=== PATIENT | male | born 1950 | race African-American/Black ===

== ENCOUNTER 2016-08-09 06:50 | Inpatient (IN) | payer MEDICARE, OTHER ==
[~2016-08-09] VITALS: Ht 188 cm; Wt 59.0 kg
[~2016-08-09 06:50] MED LIST: ADVAIR 250/501 PUFFS INH; ALBUTEROL SULF8.5 GM INH; AMLODIPINE BESYL5 MG ORAL; BENZONATATE100 MG ORAL; DALIRESP500 MCG PO; FOLIC ACID1 MG ORAL; GUAIFENESIN600 MG ORAL; IPRATROPIU0.2 MG/1 M HHN; LEVAQUIN500 MG ORAL; OMEPRAZOLE20 M2 ORAL; SPIRIVA18 MCG INH; TYLENOL650 MG RECTAL; XOPENEX0.5 MG HHN
--- NOTE | 2016-08-09 07:00 | Emergency Room Report ---
History of Present Illness General Chief Complaint: Dyspnea/Respdistress Source: EMS Present Illness HPI 65 YO M known COPD on home O2 BIBEMS from SNF with SOB and cough for 2 weeks, progressively worse. Denies fever/chills, chest pain. Has been receiving nebs but not much improvement. Per EMR, admitted 06/17- after intubation in ED for respiratory failure. CT chest at the time was negative except for nodule. Also noted anemia, likely secondary to anemia. Allergies: Coded Allergies: No Known Allergies (Unverified , 06/17/16) Patient History Past Medical History: COPD, other - anemia Past Surgical History: none Pertinent Family History: none Social History: Denies: alcohol use, drug use, smoking Immunizations: UTD Reviewed Nursing Documentation: PMH: Agreed, PSxH: Agreed Nursing Documentation-PMH Hx Hypertension: Yes Hx COPD: Yes - Bronchitis, acute resp failure, pneumonia Hx Cancer: No Hx Gastrointestinal Problems: Yes - GERD, dysphagia Hx Neurological Problems: No Review of Systems All Other Systems: negative except mentioned in HPI Physical Exam Vital Signs Date Time Temp Pulse Resp B/P Pulse Ox O2 Delivery O2 Flow Rate FiO2 08/09/16 06:52 93 Nasal Cannula Sp02 EP Interpretation: reviewed, normal General Appearance: normal inspection, well appearing, alert, GCS 15, non-toxic , mild distress Head: normocephalic, atraumatic Eyes: bilateral eye EOMI, bilateral eye PERRL ENT: normal ENT inspection, hearing grossly normal, normal pharynx, no angioedema, normal voice Neck: normal inspection, full range of motion, supple, no meningismus, no bony tend Respiratory: normal inspection, no rhonchi, no wheezing, respiratory distress, decreased breath sounds Cardiovascular #1: regular rate, rhythm, no edema Gastrointestinal: normal inspection, normal bowel sounds, non tender, soft, no guarding, no hernia Genitourinary: no CVA tenderness Musculoskeletal: normal inspection, back normal, normal range of motion, Chantel' s Sign negative Neurologic: normal inspection, alert, oriented x3, responsive, 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 DDx includes COPD exacerbation, ACS, PNA, CHF PMhx includes COPD, anemia Presents acute SOB warm, c/o intermittent 2 days of progressive SOB, cough Patient immediately placed on laboratory monitor with rhytm strip and STAT EKG was obtained which showed no acute ischemia, sinus tach VS were stable. No hypoxia. Afebrile. No SIRS. Initial management indicated: CBC, CMP, troponin, BNP, CXR, nebs, steroids, empiric Abx, BIPAP Highly suspected: COPD exacerbation, +/- PNA Possible interventions - BIPAP, additional Abx. CC time included frequent re-exams, interpretation of labs, imaging, adjustment of Abx Critical care time of 35 minutes does not include reportable procedures. Medical Decision Making Diagnostic Impression: Primary Impression: COPD exacerbation Additional Impression: Hypercarbia ER Course Labs: No leuls. H&H stable. Hypercarbic to 47. Troponin 0. ECG Sinus tach. CXR: No PNA or PTX or pulm edema. Hyperinflated. A: COPD exacerbation. Improved with Bipap, nebs, IV Mg, IV Azithro Endorsed to Dr Rader at 811am for JORDAN admission EKG Diagnostic Results Rate: tachycardiac Rhythm: NSR ST Segments: no acute changes ASA given to the pt in ED: No Rhythm Strip Diag. Results EP Interpretation: yes Rate: 110 Rhythm: NSR, no PVC's, no ectopy Chest X-Ray Diagnostic Results EP Interpretation: Yes Findings: no consolidation, no effusion, no pneumothorax, no acute cardiopulmonary disease Number of Views: 1 Last Vital Signs Date Time Temp Pulse Resp B/P Pulse Ox O2 Delivery O2 Flow Rate FiO2 08/09/16 06:52 93 Nasal Cannula Status: improved Disposition: ADMITTED INPATIENT Condition: Critical VIANNEY YING M.D. Aug 09, 2016 07:00
[2016-08-09] MEDS ORDERED: Azithromycin 500 MG in NS 275 ML IV ONE (07:15)
[2016-08-09] MEDS ORDERED: Solu-MEDROL 125mg Inj IVP ONE (07:15)
[2016-08-09] MEDS ORDERED: ADVAIR 250-501 EACH INH (07:17)
[2016-08-09] MEDS ORDERED: Azithromycin Inj IV ONE (07:22)
[2016-08-09 07:26] LABS: BASOPHILS % (AUTO) 0.7 % (0.0-2.0); EOSINOPHILS % (AUTO) 1.7 % (0.0-3.0); LYMPHOCYTES % (AUTO) 17.7 % (20.0-45.0); MEAN CORPUSCULAR HGB CONC 30.1 G/DL (32.0-36.0); MEAN CORPUSCULAR VOLUME 90 FL (80-99); MEAN PLATELET VOLUME 6.8 FL (6.5-10.1); MONOCYTES % (AUTO) 6.6 % (1.0-10.0); NEUTROPHILS % (AUTO) 73.3 % (45.0-75.0); PLATELET COUNT 342 K/UL (150-450); RED BLOOD COUNT 4.28 M/UL (4.70-6.10); RED CELL DISTRIBUTION WIDTH 19.4 % (11.6-14.8); WHITE BLOOD COUNT 9.8 K/UL (4.8-10.8)
[2016-08-09] MEDS: Ipratropium 0.02% Inh Soln 2.5ml UD HHN SCH ×3 (07:33→07:59)
[2016-08-09] MEDS: Albuterol ud Inhalation HHN SCH ×3 (07:33→08:00)
[2016-08-09 07:35] VITALS: BP 129/92
[2016-08-09 08:00] LABS: ALANINE AMINOTRANSFERASE 12 U/L (3-41); ALBUMIN/GLOBULIN RATIO 0.9 (1.0-2.7); ANION GAP 4 (5-15); ASPARTATE AMINO TRANSFERASE 13 U/L (5-40); CALCIUM 10.4 mg/dL (8.6-10.2); CHLORIDE 94 mEQ/L (98-107); CREATININE 0.7 mg/dL (0.7-1.2); GLOMERULAR FILTRATION RATE > 60 mL/min (>60); HEMOLYSIS 1; POTASSIUM 4.6 mEQ/L (3.4-4.9); SODIUM 145 mEQ/L (135-145); TOTAL PROTEIN 8.4 g/dL (6.6-8.7); TROPONIN I < 0.30 ng/mL (<=0.30)
[2016-08-09 08:06] LABS: CARBON DIOXIDE 47 mEQ/L (20-30)
[2016-08-09 08:14] LABS: CKMB 1.9 ng/mL (< 6.7)
[2016-08-09 09:43] VITALS: BP 134/76
[2016-08-09 11:37] VITALS: BP 112/70
[2016-08-09] MEDS ORDERED: Morphine Sulfate 2mg/ml Inj IVP PRN (12:00)
[2016-08-09] MEDS ORDERED: Nitroglycerin Subl 0.4mg tab (Bottle Of 25) SL PRN (12:00)
[2016-08-09] MEDS ORDERED: Ketorolac 30mg Inj IV PRN (12:00)
[2016-08-09] MEDS ORDERED: Promethazine/Codeine 5ml UD ORAL PRN (12:00)
[2016-08-09] MEDS ORDERED: LORazepam Inj 2mg/ml 1ml IV PRN (12:00)
[2016-08-09] MEDS: Solu-MEDROL 125mg Inj IV SCH ×3 (12:28→23:53)
[2016-08-09 12:42] LABS: ABG PCO2 106.1 mmHg (35.0-45.0)
[2016-08-09] MEDS ORDERED: BENZONATATE100 MG ORAL (12:42)
[2016-08-09 12:43] LABS: ABG ALLEN TEST POSITIVE; ABG BASE EXCESS 17.5
--- NOTE | 2016-08-09 12:44 | Consultation ---
History of Present Illness General Date patient seen: Aug 09, 2016 Time patient seen: 10:00 Chief Complaint: Dyspnea/Respdistress Referring physician: Prasanth Reason for Consultation: COPD exacerbation Present Illness HPI 65 YO male with known COPD, at home O2 BIBEMS with SOB and cough for 2 weeks , progressively worse. Denies fever/chills, chest pain. Patient had been receiving nebulizers, but not much improvement. Patient with admission in June for acute respiratory failure, requiring intubation CT chest at that time was negative except for R upper lobe noncalcified 7 mm nodule nodule. in ED workup revealed no leucocytosis, afebrile, stable HH CXR with hyperinflation, no evidence of acute cardiopulmonary disease , + hypercapnia, started on BiPAP , steroid loading dose IV and HHN provided after BiPAP, steroids, nebulizing treatment - some improvement Allergies: Coded Allergies: No Known Allergies (Unverified , 06/17/16) Medication History Scheduled Benzonatate* (Benzonatate*), 100 MG ORAL THREE TIMES A DAY, (Reported) Benzonatate* (Benzonatate*), 100 MG ORAL THREE TIMES A DAY, (Reported) Fluticasone/Salmeterol (Advair 250-50 Diskus), 1 PUFF INH BID, (Reported) Folic Acid* (Folic Acid*), 1 MG ORAL DAILY, (Reported) Ipratropium Hagaman 0.5MG/2.5ML (Ipratropium Hagaman 0.5MG/2.5ML), 500 MCG HHN Q6HRT Omeprazole (Omeprazole), 20 MG ORAL DAILY, (Reported) Roflumilast (Daliresp), 500 MCG PO DAILY, (Reported) Scheduled PRN Acetaminophen (Acetaminophen), 650 MG RECTAL Q4H PRN Miscellaneous Medications Guaifenesin (Guaifenesin ER), 200 MG ORAL, (Reported) Discontinued Medications Levalbuterol HCl (Xopenex Concentrate), 0.63 MG HHN Q6HRT Discontinued Reason: Therapy completed Levofloxacin* (Levaquin*), 500 MG ORAL DAILY Discontinued Reason: Medication dose changed Tiotropium Hagaman* (Spiriva*), 1 PUFF INH DAILY, (Reported) Discontinued Reason: Therapy completed Patient History Healthcare decision maker Resuscitation status Advanced Directive on File No Past Medical/Surgical History Past Medical/Surgical History: (1) ENMA (iron deficiency anemia) (2) Acute respiratory failure (3) LFTs abnormal (4) COPD exacerbation (5) Encephalopathy acute Review of Systems Constitutional: Reports: weakness Eye: Reports: no symptoms ENT: Reports: no symptoms Respiratory: Reports: see HPI Cardiovascular: Reports: other - leg edema Gastrointestinal: Reports: no symptoms Genitourinary: Reports: no symptoms Musculoskeletal: Reports: no symptoms Skin: Reports: no symptoms Neurological: Reports: no symptoms Endocrine: Reports: no symptoms Hematologic/Lymphatic: Reports: anemia Physical Exam General Appearance: no apparent distress, alert Lines, tubes and drains: peripheral HEENT: normocephalic, atraumatic, anicteric, mucous membranes moist, other - BiPAP mask on Neck: non-tender, supple Respiratory/Chest: chest wall non-tender, decreased breath sounds - with intermittent use of intercostal muscles Cardiovascular/Chest: normal peripheral pulses, regular rhythm, no JVD, tachycardia - 110 ST Abdomen: normal bowel sounds, non tender, soft Extremities: moderate edema - +2 BLE Skin Exam: warm/dry Neurologic: no motor/sensory deficits, alert, responsive, normal mood/affect Musculoskeletal: normal muscle bulk Last 24 Hour Vital Signs Date Time Temp Pulse Resp B/P Pulse Ox O2 Delivery O2 Flow Rate FiO2 08/09/16 11:38 98.5 109 22 134/76 99 15.0 30 08/09/16 11:37 98.5 109 18 112/70 99 Bi-pap 30 08/09/16 10:30 108 22 99 Facial 15.0 30 08/09/16 09:43 98.5 109 25 134/76 100 Nasal Cannula 4.0 08/09/16 09:05 98 08/09/16 08:30 30 08/09/16 08:11 121 21 99 Bi-pap 15.0 30 08/09/16 08:10 123 21 99 Facial 15.0 30 08/09/16 07:35 98.5 115 16 129/92 93 Nasal Cannula 4.0 08/09/16 07:34 36 08/09/16 07:34 113 16 Nasal Cannula 4.0 36 08/09/16 07:34 113 16 93 Nasal Cannula 4.0 36 08/09/16 06:55 72 24 Nasal Cannula 4.0 08/09/16 06:52 98.2 72 24 130/88 93 Nasal Cannula 4.0 Laboratory Tests Test 2/3/17 07:10 White Blood Count 9.8 K/UL (4.8-10.8) Red Blood Count 4.28 M/UL (4.70-6.10) L Hemoglobin 11.6 G/DL (14.2-18.0) L Hematocrit 38.4 % (42.0-52.0) L Mean Corpuscular Volume 90 FL (80-99) Mean Corpuscular Hemoglobin 27.0 PG (27.0-31.0) Mean Corpuscular Hemoglobin Concent 30.1 G/DL (32.0-36.0) L Red Cell Distribution Width 19.4 % (11.6-14.8) H Platelet Count 342 K/UL (150-450) Mean Platelet Volume 6.8 FL (6.5-10.1) Neutrophils (%) (Auto) 73.3 % (45.0-75.0) Lymphocytes (%) (Auto) 17.7 % (20.0-45.0) L Monocytes (%) (Auto) 6.6 % (1.0-10.0) Eosinophils (%) (Auto) 1.7 % (0.0-3.0) Basophils (%) (Auto) 0.7 % (0.0-2.0) Sodium Level 145 mEQ/L (135-145) Potassium Level 4.6 mEQ/L (3.4-4.9) Chloride Level 94 mEQ/L (98-107) L Carbon Dioxide Level 47 mEQ/L (20-30) *H Anion Gap 4 (5-15) L Blood Urea Nitrogen 9 mg/dL (7-23) Creatinine 0.7 mg/dL (0.7-1.2) Estimat Glomerular Filtration Rate > 60 mL/min (>60) Glucose Level 117 mg/dL (74-106) H Calcium Level 10.4 mg/dL (8.6-10.2) H Total Bilirubin 0.3 mg/dL (0.0-1.2) Aspartate Amino Transf (AST/SGOT) 13 U/L (5-40) Alanine Aminotransferase (ALT/SGPT) 12 U/L (3-41) Alkaline Phosphatase 97 U/L (40-129) Total Creatine Kinase 31 U/L (38-174) L Creatine Kinase MB 1.9 ng/mL (< 6.7) Creatine Kinase MB Relative Index 6.1 Troponin I < 0.30 ng/mL (<=0.30) Pro-B-Type Natriuretic Peptide 64 pg/mL (0-125) Total Protein 8.4 g/dL (6.6-8.7) Albumin 4.0 g/dL (3.5-5.2) Globulin 4.4 g/dL Albumin/Globulin Ratio 0.9 (1.0-2.7) L Height (Feet): 6 Height (Inches): 2.00 Weight (Pounds): 130 Medications Current Medications Medications (Trade) Dose Ordered Sig/Shraddha Route PRN Reason Start Time Stop Time Status Last Admin Dose Admin Albuterol/ Ipratropium (DuoNeb 0.5-3(2.5)mg/3ml) 3 ml Q4H PRN HHN dyspnea 08/09/16 12:00 08/14/16 11:59 Dextrose STAT PRN IV Hypoglycemia 08/09/16 12:00 09/08/16 11:59 Heparin Sodium (Porcine) (Heparin 5000 units/ml) 5,000 units EVERY 12 HOURS SUBQ 08/09/16 21:00 09/08/16 20:59 Insulin Aspart (NovoLOG) BEFORE MEALS AND HS SUBQ 08/09/16 16:30 09/08/16 16:29 Ketorolac Tromethamine (Toradol 30mg) 30 mg Q8H PRN IV moderate pain 4-6 08/09/16 12:00 08/14/16 11:59 Lorazepam (Ativan 2mg/ml 1ml) 0.5 mg Q4H PRN IV For Anxiety 08/09/16 12:00 08/16/16 11:59 Methylprednisolone Sodium Succinate (Solu-MEDROL) 60 mg EVERY 6 HOURS IV 08/09/16 12:00 09/08/16 11:59 Morphine Sulfate (Morphine Sulfate) 2 mg Q4H PRN IVP severe pain 7-10 08/09/16 12:00 08/16/16 11:59 Nitroglycerin (Ntg) 0.4 mg Q5M X 3 DOSES PRN SL Prn Chest Pain 08/09/16 12:00 09/08/16 11:59 Ondansetron HCl (Zofran) 4 mg Q6H PRN IVP Nausea & Vomiting 2/3/17 12:00 09/08/16 11:59 Piperacillin Sod/ Tazobactam Sod/ Dextrose (Zosyn/D5W) 110 ml @ 27.5 mls/hr EVERY 8 HOURS IVPB 08/09/16 14:00 08/14/16 13:59 Promethazine HCl/ Codeine (Phenergan with Codeine) 5 ml Q6H PRN ORAL cough 08/09/16 12:00 09/08/16 11:59 Temazepam (Restoril) 15 mg HSPRN PRN ORAL Insomnia 08/09/16 21:00 08/16/16 20:59 Theophylline (Dustin-Dur) 100 mg EVERY 12 HOURS ORAL 08/09/16 21:00 09/08/16 20:59 Vitamin A/Vitamin D (A & D Oint) 1 applic EVERY 12 HOURS TOPIC 08/09/16 21:00 09/08/16 20:59 UNV Assessment/Plan Assessment/Plan ASSESSMENT acute hypercapnic hypoxemic respiratory failure requiring BiPAP acute COPD exacerbation COPD R pulmonary nodule hx of respiratory failure with intubation ( June 2016)\ Smoker hx of DVT leg edema anemia PLAN OF CARE JORDAN on BiPAP ABG Wean from BiPAP as tolerated , titrate O2 to keep sat above 92% pulmonary toilet IV steroids and taper as permitted sputum cx empiric antibiotics start Theophylline antitussive prn last CT chest in June with R noncalcified pulmonary nodule [address] 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
--- NOTE | 2016-08-09 12:49 | Diagnostic Imaging Report ---
Indication: SOB Technique: One view of the chest Comparison: 06/25/2016 Findings: The lungs are hyperinflated. Lungs pleural spaces are clear. The heart size is normal. Calcified granuloma is seen in the left upper lobe Impression: No acute process Hyperinflation, consistent with COPD Evidence of old granulomatous disease This agrees with the preliminary interpretation provided by the emergency room physician.
[2016-08-09] MEDS: NovoLOG Insulin Flexpen SUBQ SCH ×4 (13:45→20:09)
[2016-08-09] MEDS ORDERED: Piperacillin/Tazobactam 2.25 GM in D5W 55 ML IV SCH (14:00)
[2016-08-09] MEDS: Zoysn 3.37gm in D5W 110ml IVPB SCH ×2 (14:34→21:47)
[2016-08-09 16:00] VITALS: BP 116/92
--- NOTE | 2016-08-09 16:43 | Wound Care Consultation ---
Wound Assessment Wound Assessment : Wound Present on Admission: Yes New Wound: No Status Change of Wound: No Wound Location Body Site Modif: left, right, lower Wound Location Body Site: leg Wound Type: other - dryness Nisha Test: Does not Nisha Edema Degree: 2+ indent readily Wound Drainage Amount: None Wound Drainage Odor: None/Absent Tissue Surrounding Wound: Edematous Wound General Appearance: Asymptomatic Wound Comment #1 Right and left lower legs with dry and flaky skin Recommendation -Keep clean and moist by applying A&D ointment -Turn and reposition -Offload both heels -Elevate both legs -Optimize nutrition -Assess and f/u accordingly for any changes on the skin CARRILLO HARRISON RN Aug 09, 2016 16:43
--- NOTE | 2016-08-09 19:21 | History & Physical ---
History and Physical History & Physicial Dictated for Int Med-Dr Rader no. [id number]. TADEO VERDIN Aug 09, 2016 19:21
[2016-08-09 20:00] VITALS: BP 123/85
[2016-08-09] MEDS: Vitamin A&D Oint 2oz Tube TOPIC SCH (20:03)
[2016-08-09] MEDS: Theophylline ER 100mg ORAL SCH (20:03)
[2016-08-09] MEDS: Heparin 5000 units/ml inj SUBQ SCH (20:05)
[2016-08-09] MEDS ORDERED: Vitamin A&D Oint 2oz Tube TOPIC SCH (21:00)
--- NOTE | 2016-08-09 22:37 | History and Physical Report ---
DATE OF ADMISSION: 08/09/2016 CHIEF COMPLAINT: The patient is a 65-year-old male with history of chronic obstructive pulmonary disease, who presents with complaint of cough and shortness of breath. HISTORY OF PRESENT ILLNESS: Two weeks prior to admission, the patient began to experience cough and shortness of breath. The patient is resident of [facility]. The patient was transported to [place] emergency room via EMS. The patient was found to be acutely short of breath. The patient was placed on BiPAP. The patient received nebulizer treatments. The patient is admitted for chronic exacerbation of chronic obstructive pulmonary disease. PAST MEDICAL HISTORY: Significant for 1. Chronic obstructive pulmonary disease. 2. History of respiratory failure with intubation at [facility] in June 2016. PAST SURGICAL HISTORY: The patient denies. MEDICATIONS: Current Medications 1. Tessalon Perles 100 mg two times daily. 2. Advair 250/50 one puff p.o. twice daily. 3. Folic acid 1 mg p.o. daily. 4. Guaifenesin 600 mg one tablet p.o. twice daily. 5. Atrovent nebulized q.4 h. p.r.n. 6. Omeprazole 20 mg one tablet p.o. daily. 7. Daliresp 500 mcg p.o. daily. ALLERGIES: No known drug allergies. SOCIAL HISTORY: The patient is a resident of [facility]. The patient is single. The patient admits to previous tobacco use. The patient denies alcohol use. REVIEW OF SYSTEMS: Unable to assess secondary to patient being on BiPAP. PHYSICAL EXAMINATION: GENERAL: The patient is thin-appearing male, in moderate respiratory distress using accessory muscles. VITAL SIGNS: Temperature 98.6 degrees, respirations 18, pulse 111, and blood pressure 116/92. The patient is currently on BiPAP and saturating 99%. HEENT: Eyes, pupils are equal and responsive to light and accommodation. Extraocular movements are intact. NECK: Supple without lymphadenopathy. CHEST: Lungs are diffuse wheezing bilaterally with rhonchi heard in bilateral bases. There are crackles in bilateral bases. CARDIOVASCULAR: Tachycardic. S1 and S2 normal without murmurs, rubs, or gallops. ABDOMEN: Soft, nontender, and nondistended. Positive bowel sounds. No evidence of hepatosplenomegaly. Currently, no rebound and no guarding. EXTREMITIES: No clubbing, cyanosis, or edema. RECTAL: Refused. GENITAL: Refused. NEUROLOGIC: Cranial nerves II through XII are grossly intact without focal deficits. Motor strength is 5/5 bilaterally. Deep tendon reflexes are 2+. LABORATORY AND DIAGNOSTIC DATA: WBC 9.8, hemoglobin 11.6, hematocrit 30.4, and platelets 242,000. Sodium 140, potassium 4.6, chloride 94, CO2 is 47, BUN 9, creatinine 0.7, and glucose 117. Arterial blood gases, pH 7.275, pCO2 106.1, pO2 142.5, bicarbonate 48.2, oxygen saturation 98.5, base excess +17.5. A chest x-ray revealed hyperinflation consistent with chronic obstructive pulmonary disease. ASSESSMENT: This is a 65-year-old male 1. Chronic obstructive pulmonary disease. 2. Acute exacerbation. 3. Respiratory failure. TREATMENT: Chronic obstructive pulmonary disease exacerbation/respiratory failure. A Pulmonary consultation with Dr. Demetrius Andrade. The patient is currently on BiPAP. The patient has been started empirically on theophylline 100 mg twice daily. The patient has also been started on Zosyn 3.375 grams IV q.8 h. The patient has also been started on Duo-Nebs every four hours p.r.n. shortness of breath. The patient is also currently receiving Solu-Medrol 60 mg mg intravenously q.6 h. serial chest x-rays will be performed. Rule out pneumonia. Goyo Tsang M.D. DR: MARCOS JOB#: [id number] CC:
[2016-08-10] VITALS: BP 144/88
[2016-08-10] MEDS: Solu-MEDROL 125mg Inj IV SCH ×3 (00:46→17:50)
[2016-08-10 04:30] VITALS: BP 145/87
[2016-08-10 04:59] LABS: MEAN CORPUSCULAR HEMOGLOBIN 26.9 PG (27.0-31.0); MEAN CORPUSCULAR HGB CONC 30.2 G/DL (32.0-36.0); MEAN CORPUSCULAR VOLUME 89 FL (80-99); MEAN PLATELET VOLUME 6.7 FL (6.5-10.1); PLATELET COUNT 281 K/UL (150-450); RED BLOOD COUNT 3.47 M/UL (4.70-6.10); RED CELL DISTRIBUTION WIDTH 18.8 % (11.6-14.8); WHITE BLOOD COUNT 6.3 K/UL (4.8-10.8)
[2016-08-10 05:17] LABS: ANION GAP 6 (5-15); CALCIUM 9.5 mg/dL (8.6-10.2); CHLORIDE 93 mEQ/L (98-107); CREATININE 0.7 mg/dL (0.7-1.2); GLOMERULAR FILTRATION RATE > 60 mL/min (>60); HEMOLYSIS 0; POTASSIUM 5.2 mEQ/L (3.4-4.9); SODIUM 143 mEQ/L (135-145)
[2016-08-10 05:25] LABS: CARBON DIOXIDE 44 mEQ/L (20-30)
[2016-08-10] MEDS: Zoysn 3.37gm in D5W 110ml IVPB SCH ×3 (05:46→21:47)
[2016-08-10] MEDS: NovoLOG Insulin Flexpen SUBQ SCH ×4 (05:47→20:46)
[2016-08-10 08:00] VITALS: BP 145/92
[2016-08-10] MEDS: Theophylline ER 100mg ORAL SCH ×2 (08:40→20:45)
[2016-08-10] MEDS: Heparin 5000 units/ml inj SUBQ SCH ×2 (08:42→20:47)
[2016-08-10] MEDS: Vitamin A&D Oint 2oz Tube TOPIC SCH ×2 (08:48→20:48)
[2016-08-10 09:46] LABS: ABG ALLEN TEST POSITIVE; ABG BASE EXCESS 20.8; ABG PCO2 102.1 mmHg (35.0-45.0)
[2016-08-10] MEDS ORDERED: Sodium Polystyrene Sulfonate 15gm Powder ORAL ONE (10:00)
[2016-08-10 12:00] VITALS: BP 132/88
--- NOTE | 2016-08-10 14:00 | Pulmonology Progress Note ---
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 Nicotine patch last ECHO with preserved EF 55-60% and RVSP 17, no LVH, pro BNP WNL elevate LE monitor HH, trending down, anemia workup DVT, GI prophylaxis Venous Duplex BLE ( hx of DVT in the past) with chronic DVT RLE case discussed and evaluated by supervising physician Subjective Allergies: Coded Allergies: No Known Allergies (Unverified , 06/17/16) Subjective afebrile, no leukocytosis still on BiPAP ABG on 3 L O2 via NC with severe hypercapnia, pH better HH trending down Objective Last 24 Hour Vital Signs Date Time Temp Pulse Resp B/P Pulse Ox O2 Delivery O2 Flow Rate FiO2 08/10/16 12:40 106 08/10/16 12:00 97.9 116 18 132/88 93 Bi-pap 30 08/10/16 11:53 30 08/10/16 11:12 98 21 96 Facial 15.0 30 08/10/16 11:05 101 22 96 Facial 15.0 25 08/10/16 08:00 97.0 111 16 145/92 98 Bi-pap 30 08/10/16 08:00 109 08/10/16 07:50 30 08/10/16 06:55 98 22 97 Facial 15.0 30 08/10/16 05:17 95 19 96 Facial 15.0 30 08/10/16 04:30 97.4 102 16 145/87 98 Bi-pap 30 08/10/16 04:00 30 08/10/16 03:39 104 08/10/16 03:20 97 20 95 Facial 15.0 30 08/10/16 01:19 90 18 95 Facial 15.0 30 08/10/16 00:56 89 20 95 Bi-pap 15.0 30 08/10/16 00:47 105 18 96 Bi-pap 30 08/10/16 00:47 30 08/10/16 00:00 97.7 103 14 144/88 97 Bi-pap 30 08/10/16 00:00 30 08/09/16 23:35 104 08/09/16 23:25 103 18 96 Facial 15.0 30 08/09/16 20:00 96.4 110 18 123/85 100 Bi-pap 30 08/09/16 20:00 30 08/09/16 20:00 103 08/09/16 16:50 103 21 99 Facial 15.0 30 08/09/16 16:00 108 08/09/16 16:00 98.6 111 18 116/92 99 Bi-pap 30 08/09/16 16:00 30 08/09/16 14:50 108 22 99 Facial 15.0 30 Intake and Output 08/09/16 08/10/16 19:00 07:00 Intake Total 110.0 ml 377.5 ml Output Total 150 ml 535 ml Balance -40.0 ml -157.5 ml Intake Oral 0 ml 240 ml IV Total 110.0 ml 137.5 ml Output Urine Total 150 ml 535 ml # Voids 2 6 # Bowel Movements 2 Objective General Appearance: no apparent distress, alert Lines, tubes and drains: peripheral HEENT: normocephalic, atraumatic, anicteric, mucous membranes moist, BiPAP 15 /5 with FiO2 30%, mask on Neck: non-tender, supple Respiratory/Chest: chest wall non-tender, decreased breath sounds with intermittent use of intercostal muscles Cardiovascular/Chest: normal peripheral pulses, regular rhythm, no JVD, tachycardia - 110 ST Abdomen: normal bowel sounds, non tender, soft Extremities: moderate edema - +2 BLE Skin Exam: warm/dry Neurologic: no motor/sensory deficits, alert, responsive, normal mood/affect Musculoskeletal: normal muscle bulk Microbiology Date/Time Source Procedure Growth Status 08/09/16 07:25 Blood Not Otherwise Specified Blood Culture - Preliminary NO GROWTH AFTER 24 HOURS Resulted 08/09/16 07:00 Blood Not Otherwise Specified Blood Culture - Preliminary NO GROWTH AFTER 24 HOURS Resulted 08/09/16 18:30 Nasal Nares Influenza Types A,B Antigen (JACINTA) - Final Complete 08/09/16 08:31 Nasal Nares MRSA Culture - Final NO METHICILLIN RESISTANT STAPH AUREUS... Complete Laboratory Tests 08/10/16 04:00: White Blood Count 6.3, Red Blood Count 3.47L, Hemoglobin 9.3L, Hematocrit 30.9L , Mean Corpuscular Volume 89, Mean Corpuscular Hemoglobin 26.9L, Mean Corpuscular Hemoglobin Concent 30.2L, Red Cell Distribution Width 18.8H, Platelet Count 281, Mean Platelet Volume 6.7, Neutrophils (%) (Auto) , Lymphocytes (%) (Auto) , Monocytes (%) (Auto) , Eosinophils (%) (Auto) , Basophils (%) (Auto) , Sodium Level 143, Potassium Level 5.2H, Chloride Level 93L, Carbon Dioxide Level 44*H, Anion Gap 6, Blood Urea Nitrogen 9, Creatinine 0.7, Estimat Glomerular Filtration Rate > 60, Glucose Level 131H, Calcium Level 9.5 08/10/16 08:36: Arterial Blood pH 7.317L, Arterial Blood Partial Pressure CO2 102.1*H, Arterial Blood Partial Pressure O2 123.2H, Arterial Blood HCO3 51.1H, Arterial Blood Oxygen Saturation 97.9, Arterial Blood Base Excess 20.8, Joseluis Test Positive Current Medications Medications (Trade) Dose Ordered Sig/Shraddha Route PRN Reason Start Time Stop Time Status Last Admin Dose Admin Albuterol/ Ipratropium (DuoNeb 0.5-3(2.5)mg/3ml) 3 ml Q4H PRN HHN dyspnea 08/09/16 12:00 08/14/16 11:59 Dextrose STAT PRN IV Hypoglycemia 08/09/16 12:00 09/08/16 11:59 Heparin Sodium (Porcine) (Heparin 5000 units/ml) 5,000 units EVERY 12 HOURS SUBQ 08/09/16 21:00 09/08/16 20:59 08/10/16 08:42 Insulin Aspart (NovoLOG) BEFORE MEALS AND HS SUBQ 08/09/16 13:45 09/08/16 13:44 08/10/16 11:26 Ketorolac Tromethamine (Toradol 30mg) 30 mg Q8H PRN IV moderate pain 4-6 08/09/16 12:00 08/14/16 11:59 Lorazepam (Ativan 2mg/ml 1ml) 0.5 mg Q4H PRN IV For Anxiety 08/09/16 12:00 08/16/16 11:59 08/10/16 03:23 Methylprednisolone Sodium Succinate (Solu-MEDROL) 60 mg EVERY 6 HOURS IV 08/09/16 12:00 09/08/16 11:59 08/10/16 11:27 Morphine Sulfate (Morphine Sulfate) 2 mg Q4H PRN IVP severe pain 7-10 08/09/16 12:00 08/16/16 11:59 Nicotine (Nicoderm) 1 patch Q24H TDERMAL 08/09/16 14:00 09/08/16 13:59 08/10/16 13:48 Nitroglycerin (Ntg) 0.4 mg Q5M X 3 DOSES PRN SL Prn Chest Pain 08/09/16 12:00 09/08/16 11:59 Ondansetron HCl (Zofran) 4 mg Q6H PRN IVP Nausea & Vomiting 08/09/16 12:00 09/08/16 11:59 Piperacillin Sod/ Tazobactam Sod/ Dextrose (Zosyn/D5W) 110 ml @ 27.5 mls/hr EVERY 8 HOURS IVPB 08/09/16 14:00 08/14/16 13:59 08/10/16 13:48 Promethazine HCl/ Codeine (Phenergan with Codeine) 5 ml Q6H PRN ORAL cough 08/09/16 12:00 09/08/16 11:59 Temazepam (Restoril) 15 mg HSPRN PRN ORAL Insomnia 08/09/16 21:00 08/16/16 20:59 Theophylline (Dustin-Dur) 100 mg EVERY 12 HOURS ORAL 08/09/16 21:00 09/08/16 20:59 08/10/16 08:40 Vitamin A/Vitamin D (A & D Oint) 1 applic EVERY 12 HOURS TOPIC 08/09/16 21:00 09/08/16 20:59 08/10/16 08:48 [facility]Katia NP Aug 10, 2016 14:00
[2016-08-10] MEDS ORDERED: Tubing IV Secondary IV ONE (14:37)
[2016-08-10] MEDS ORDERED: NS 275ml ONE (14:37)
[2016-08-10 16:00] VITALS: BP 138/92
--- NOTE | 2016-08-10 17:25 | Internal Med Progress Note ---
Subjective Date of Service: Aug 10, 2016 Physician Name Tadeo Verdin Attending Physician Steve Rader MD Current Medications Medications (Trade) Dose Ordered Sig/Shraddha Route PRN Reason Start Time Stop Time Status Last Admin Dose Admin Albuterol/ Ipratropium (DuoNeb 0.5-3(2.5)mg/3ml) 3 ml Q4H PRN HHN dyspnea 08/09/16 12:00 08/14/16 11:59 Dextrose STAT PRN IV Hypoglycemia 08/09/16 12:00 09/08/16 11:59 Heparin Sodium (Porcine) (Heparin 5000 units/ml) 5,000 units EVERY 12 HOURS SUBQ 08/09/16 21:00 09/08/16 20:59 08/10/16 08:42 Insulin Aspart (NovoLOG) BEFORE MEALS AND HS SUBQ 08/09/16 13:45 09/08/16 13:44 08/10/16 11:26 Ketorolac Tromethamine (Toradol 30mg) 30 mg Q8H PRN IV moderate pain 4-6 08/09/16 12:00 08/14/16 11:59 Lorazepam (Ativan 2mg/ml 1ml) 0.5 mg Q4H PRN IV For Anxiety 08/09/16 12:00 08/16/16 11:59 08/10/16 03:23 Methylprednisolone Sodium Succinate (Solu-MEDROL) 60 mg EVERY 6 HOURS IV 08/09/16 12:00 09/08/16 11:59 08/10/16 11:27 Morphine Sulfate (Morphine Sulfate) 2 mg Q4H PRN IVP severe pain 7-10 08/09/16 12:00 08/16/16 11:59 Nicotine (Nicoderm) 1 patch Q24H TDERMAL 08/09/16 14:00 09/08/16 13:59 08/10/16 13:48 Nitroglycerin (Ntg) 0.4 mg Q5M X 3 DOSES PRN SL Prn Chest Pain 08/09/16 12:00 09/08/16 11:59 Ondansetron HCl (Zofran) 4 mg Q6H PRN IVP Nausea & Vomiting 08/09/16 12:00 09/08/16 11:59 Piperacillin Sod/ Tazobactam Sod/ Dextrose (Zosyn/D5W) 110 ml @ 27.5 mls/hr EVERY 8 HOURS IVPB 08/09/16 14:00 08/14/16 13:59 08/10/16 13:48 Promethazine HCl/ Codeine (Phenergan with Codeine) 5 ml Q6H PRN ORAL cough 08/09/16 12:00 09/08/16 11:59 Temazepam (Restoril) 15 mg HSPRN PRN ORAL Insomnia 08/09/16 21:00 08/16/16 20:59 Theophylline (Dustin-Dur) 100 mg EVERY 12 HOURS ORAL 08/09/16 21:00 09/08/16 20:59 08/10/16 08:40 Vitamin A/Vitamin D (A & D Oint) 1 applic EVERY 12 HOURS TOPIC 08/09/16 21:00 09/08/16 20:59 08/10/16 08:48 Allergies: Coded Allergies: No Known Allergies (Unverified , 06/17/16) ROS Limited/Unobtainable: Yes Constitutional: Reports: no symptoms HEENT: Reports: no symptoms Cardiovascular: Reports: no symptoms Respiratory: Reports: shortness of breath Gastrointestinal/Abdominal: Reports: no symptoms Genitourinary: Reports: no symptoms Neurologic/Psychiatric: Reports: no symptoms Subjective 65 YO M admitted with shortness of breath and respiratory failure. JORDAN. Continues on BIPAP. Cover for Int [facility]-Dr Rader. 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, no motor/sensory deficits Skin: normal pigmentation, warm/dry Laboratory Tests Test 08/10/16 04:00 08/10/16 08:36 White Blood Count 6.3 K/UL (4.8-10.8) Red Blood Count 3.47 M/UL (4.70-6.10) L Hemoglobin 9.3 G/DL (14.2-18.0) L Hematocrit 30.9 % (42.0-52.0) L Mean Corpuscular Volume 89 FL (80-99) Mean Corpuscular Hemoglobin 26.9 PG (27.0-31.0) L Mean Corpuscular Hemoglobin Concent 30.2 G/DL (32.0-36.0) L Red Cell Distribution Width 18.8 % (11.6-14.8) H Platelet Count 281 K/UL (150-450) Mean Platelet Volume 6.7 FL (6.5-10.1) Neutrophils (%) (Auto) % (45.0-75.0) Lymphocytes (%) (Auto) % (20.0-45.0) Monocytes (%) (Auto) % (1.0-10.0) Eosinophils (%) (Auto) % (0.0-3.0) Basophils (%) (Auto) % (0.0-2.0) Sodium Level 143 mEQ/L (135-145) Potassium Level 5.2 mEQ/L (3.4-4.9) H Chloride Level 93 mEQ/L (98-107) L Carbon Dioxide Level 44 mEQ/L (20-30) *H Anion Gap 6 (5-15) Blood Urea Nitrogen 9 mg/dL (7-23) Creatinine 0.7 mg/dL (0.7-1.2) Estimat Glomerular Filtration Rate > 60 mL/min (>60) Glucose Level 131 mg/dL (74-106) H Calcium Level 9.5 mg/dL (8.6-10.2) Arterial Blood pH 7.317 (7.350-7.450) Arterial Blood Partial Pressure CO2 102.1 mmHg (35.0-45.0) *H Arterial Blood Partial Pressure O2 123.2 mmHg (75.0-100.0) H Arterial Blood HCO3 51.1 mmol/L (22.0-26.0) H Arterial Blood Oxygen Saturation 97.9 % (92.0-98.0) Arterial Blood Base Excess 20.8 Joseluis Test Positive Microbiology Date/Time Source Procedure Growth Status 08/09/16 07:25 Blood Not Otherwise Specified Blood Culture - Preliminary NO GROWTH AFTER 24 HOURS Resulted 08/09/16 07:00 Blood Not Otherwise Specified Blood Culture - Preliminary NO GROWTH AFTER 24 HOURS Resulted 08/09/16 18:30 Nasal Nares Influenza Types A,B Antigen (JACINTA) - Final Complete 08/09/16 08:31 Nasal Nares MRSA Culture - Final NO METHICILLIN RESISTANT STAPH AUREUS... Complete Intake and Output 08/09/16 08/10/16 19:00 07:00 Intake Total 110.0 ml 377.5 ml Output Total 150 ml 535 ml Balance -40.0 ml -157.5 ml Intake Oral 0 ml 240 ml IV Total 110.0 ml 137.5 ml Output Urine Total 150 ml 535 ml # Voids 2 6 # Bowel Movements 2 Assessment/Plan Problem List: (1) COPD exacerbation Assessment & Plan: See pulmonary note. Await CT chest. Cont BIPAP and zosyn (2) Acute respiratory failure Assessment & Plan: Cont BIPAP per pulmonary Status: not improved TADEO VERDIN Aug 10, 2016 17:25
[2016-08-10 20:00] VITALS: BP 137/92
[2016-08-11] VITALS: BP 122/72
[2016-08-11] MEDS: Solu-MEDROL 125mg Inj IV SCH ×3 (00:23→21:11)
[2016-08-11 04:00] VITALS: BP 134/97
[2016-08-11] MEDS: NovoLOG Insulin Flexpen SUBQ SCH ×4 (06:14→21:00)
[2016-08-11] MEDS: Zoysn 3.37gm in D5W 110ml IVPB SCH ×3 (06:14→21:15)
[2016-08-11 06:20] LABS: MEAN CORPUSCULAR HEMOGLOBIN 26.5 PG (27.0-31.0); MEAN CORPUSCULAR HGB CONC 29.8 G/DL (32.0-36.0); MEAN CORPUSCULAR VOLUME 89 FL (80-99); PLATELET COUNT 309 K/UL (150-450); RED BLOOD COUNT 3.73 M/UL (4.70-6.10); RED CELL DISTRIBUTION WIDTH 18.9 % (11.6-14.8); WHITE BLOOD COUNT 11.9 K/UL (4.8-10.8)
[2016-08-11 06:38] LABS: ANION GAP 4 (5-15); CALCIUM 9.7 mg/dL (8.6-10.2); CHLORIDE 92 mEQ/L (98-107); CREATININE 0.6 mg/dL (0.7-1.2); GLOMERULAR FILTRATION RATE > 60 mL/min (>60); SODIUM 143 mEQ/L (135-145)
[2016-08-11 06:49] LABS: FERRITIN 54 ng/mL (10-230)
[2016-08-11 07:09] LABS: CARBON DIOXIDE 47 mEQ/L (20-30)
[2016-08-11 07:52] LABS: HEMOLYSIS 27; IRON 29 ug/dL (59-158); TOTAL IRON BINDING CAPACITY 283 ug/dL (250-400)
[2016-08-11 08:00] VITALS: BP 148/87
[2016-08-11 08:50] LABS: ANISOCYTOSIS 1+; BAND NEUTROPHILS % (MANUAL) 0 % (0-8); BASOPHILS % (MANUAL) 0 % (0-2); EOSINOPHILS % (MANUAL) 0 % (0-3); HYPOCHROMASIA 1+; LYMPHOCYTES % (MANUAL) 7 % (20-45); NEUTROPHILS % (MANUAL) 87 % (45-75); PLATELET ESTIMATE ADEQUATE; PLATELET MORPHOLOGY NORMAL; TOTAL CELLS COUNTED 100
[2016-08-11] MEDS: Theophylline ER 100mg ORAL SCH ×2 (08:58→21:18)
[2016-08-11] MEDS: Heparin 5000 units/ml inj SUBQ SCH ×2 (09:01→21:16)
[2016-08-11] MEDS: Vitamin A&D Oint 2oz Tube TOPIC SCH ×2 (09:05→20:44)
--- NOTE | 2016-08-11 11:33 | Pulmonology Progress Note ---
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 Nicotine patch last ECHO with preserved EF 55-60% and RVSP 17, no LVH, pro BNP WNL elevate LE monitor HH, trending down, anemia workup revealed low iron v Venofer x 1 today DVT, GI prophylaxis Venous Duplex BLE ( hx of DVT in the past) with chronic DVT RLE case discussed and evaluated by supervising physician Subjective Allergies: Coded Allergies: No Known Allergies (Unverified , 06/17/16) Subjective afebrile, mild leukocytosis today still on BiPAP at night and with food intake on O2 via NC with mild respiratory distress afterwards ABG pending for thsi am Objective Last 24 Hour Vital Signs Date Time Temp Pulse Resp B/P Pulse Ox O2 Delivery O2 Flow Rate FiO2 08/11/16 08:57 101 23 95 Facial 4.0 36 08/11/16 08:00 97.7 108 148/87 100 Nasal Cannula 5.0 08/11/16 07:30 110 21 98 Facial 30 08/11/16 05:03 112 21 98 Facial 15.0 30 08/11/16 04:00 96.4 112 20 134/97 95 Nasal Cannula 2.0 08/11/16 04:00 109 08/11/16 04:00 30 08/11/16 02:45 118 21 100 Facial 15.0 30 08/11/16 00:36 4.0 08/11/16 00:00 97.0 93 20 122/72 100 Nasal Cannula 2.0 08/10/16 20:00 30 08/10/16 20:00 97.1 104 24 137/92 94 Bi-pap 30 08/10/16 20:00 111 08/10/16 19:15 110 17 100 Facial 15.0 30 08/10/16 16:35 95 20 96 Facial 15.0 30 08/10/16 16:00 30 08/10/16 16:00 90 08/10/16 16:00 97.3 83 21 138/92 95 Bi-pap 30 08/10/16 14:40 102 23 97 Facial 15.0 30 08/10/16 12:40 106 08/10/16 12:00 97.9 116 18 132/88 93 Bi-pap 30 08/10/16 11:53 30 Intake and Output 08/10/16 08/11/16 19:00 07:00 Intake Total 842.5 ml 110.0 ml Output Total 620 ml 550 ml Balance 222.5 ml -440.0 ml Intake Oral 650 ml IV Total 192.5 ml 110.0 ml Output Urine Total 620 ml 550 ml # Voids 5 2 Objective General Appearance: no apparent distress, alert Lines, tubes and drains: peripheral HEENT: normocephalic, atraumatic, anicteric, mucous membranes moist, BiPAP 15 /5 with FiO2 30%, mask on Neck: non-tender, supple Respiratory/Chest: chest wall non-tender, decreased breath sounds with intermittent use of intercostal muscles Cardiovascular/Chest: normal peripheral pulses, regular rhythm, no JVD, tachycardia - 105 ST Abdomen: normal bowel sounds, non tender, soft Extremities: moderate edema - +2 BLE Skin Exam: warm/dry Neurologic: no motor/sensory deficits, alert, responsive, normal mood/affect Musculoskeletal: normal muscle bulk Microbiology Date/Time Source Procedure Growth Status 08/09/16 07:25 Blood Not Otherwise Specified Blood Culture - Preliminary NO GROWTH AFTER 48 HOURS Resulted 08/09/16 07:00 Blood Not Otherwise Specified Blood Culture - Preliminary NO GROWTH AFTER 48 HOURS Resulted 08/09/16 19:30 Sputum Gram Stain - Final Resulted 08/09/16 19:30 Sputum Sputum Culture Pending Resulted 08/09/16 18:30 Nasal Nares Influenza Types A,B Antigen (JACINTA) - Final Complete 08/09/16 08:31 Nasal Nares MRSA Culture - Final NO METHICILLIN RESISTANT STAPH AUREUS... Complete 08/09/16 08:31 Rectum VRE Culture - Final NO VANCOMYCIN RESISTANT ENTEROCOCCUS ... Complete Laboratory Tests 08/11/16 05:30: White Blood Count 11.9#H, Red Blood Count 3.73L, Hemoglobin 9.9L, Hematocrit 33.2L, Mean Corpuscular Volume 89, Mean Corpuscular Hemoglobin 26.5L, Mean Corpuscular Hemoglobin Concent 29.8L, Red Cell Distribution Width 18.9H, Platelet Count 309, Mean Platelet Volume 7.0, Neutrophils (%) (Auto) , Lymphocytes (%) (Auto) , Monocytes (%) (Auto) , Eosinophils (%) (Auto) , Basophils (%) (Auto) , Differential Total Cells Counted 100, Neutrophils % ( Manual) 87H, Lymphocytes % (Manual) 7L, Monocytes % (Manual) 6, Eosinophils % ( Manual) 0, Basophils % (Manual) 0, Band Neutrophils 0, Platelet Estimate Adequate, Platelet Morphology Normal, Hypochromasia 1+, Anisocytosis 1+, Sodium Level 143, Potassium Level 4.0, Chloride Level 92L, Carbon Dioxide Level 47*H, Anion Gap 4L, Blood Urea Nitrogen 11, Creatinine 0.6L, Estimat Glomerular Filtration Rate > 60, Glucose Level 110H, Calcium Level 9.7, Iron Level 29L, Total Iron Binding Capacity 283, Percent Iron Saturation 10L, Unsaturated Iron Binding 254, Ferritin 54, Vitamin B12 Level 1434H, Folate [Pending] 08/11/16 08:05: Arterial Blood pH [Pending], Arterial Blood Partial Pressure CO2 [Pending], Arterial Blood Partial Pressure O2 [Pending], Arterial Blood HCO3 [Pending], Arterial Blood Oxygen Saturation [Pending], Arterial Blood Base Excess [Pending] , Joseluis Test [Pending] Current Medications Medications (Trade) Dose Ordered Sig/Shraddha Route PRN Reason Start Time Stop Time Status Last Admin Dose Admin Albuterol/ Ipratropium (DuoNeb 0.5-3(2.5)mg/3ml) 3 ml Q4H PRN HHN dyspnea 08/09/16 12:00 08/14/16 11:59 Dextrose STAT PRN IV Hypoglycemia 08/09/16 12:00 09/08/16 11:59 Heparin Sodium (Porcine) (Heparin 5000 units/ml) 5,000 units EVERY 12 HOURS SUBQ 08/09/16 21:00 09/08/16 20:59 08/11/16 09:01 Insulin Aspart (NovoLOG) BEFORE MEALS AND HS SUBQ 08/09/16 13:45 09/08/16 13:44 08/10/16 20:46 Ketorolac Tromethamine (Toradol 30mg) 30 mg Q8H PRN IV moderate pain 4-6 08/09/16 12:00 08/14/16 11:59 Lorazepam (Ativan 2mg/ml 1ml) 0.5 mg Q4H PRN IV For Anxiety 08/09/16 12:00 08/16/16 11:59 08/10/16 03:23 Methylprednisolone Sodium Succinate (Solu-MEDROL) 60 mg EVERY 6 HOURS IV 08/09/16 12:00 09/08/16 11:59 08/11/16 06:14 Morphine Sulfate (Morphine Sulfate) 2 mg Q4H PRN IVP severe pain 7-10 08/09/16 12:00 08/16/16 11:59 Nicotine (Nicoderm) 1 patch Q24H TDERMAL 08/09/16 14:00 09/08/16 13:59 08/10/16 13:48 Nitroglycerin (Ntg) 0.4 mg Q5M X 3 DOSES PRN SL Prn Chest Pain 08/09/16 12:00 09/08/16 11:59 Ondansetron HCl (Zofran) 4 mg Q6H PRN IVP Nausea & Vomiting 08/09/16 12:00 09/08/16 11:59 Piperacillin Sod/ Tazobactam Sod/ Dextrose (Zosyn/D5W) 110 ml @ 27.5 mls/hr EVERY 8 HOURS IVPB 08/09/16 14:00 08/14/16 13:59 08/11/16 06:14 Promethazine HCl/ Codeine (Phenergan with Codeine) 5 ml Q6H PRN ORAL cough 08/09/16 12:00 09/08/16 11:59 Temazepam (Restoril) 15 mg HSPRN PRN ORAL Insomnia 08/09/16 21:00 08/16/16 20:59 Theophylline (Dustin-Dur) 100 mg EVERY 12 HOURS ORAL 08/09/16 21:00 09/08/16 20:59 08/11/16 08:58 Vitamin A/Vitamin D (A & D Oint) 1 applic EVERY 12 HOURS TOPIC 08/09/16 21:00 09/08/16 20:59 08/11/16 09:05 Katia Sequeira NP ([facility]) Aug 11, 2016 11:33
[2016-08-11 12:00] VITALS: BP 147/102
[2016-08-11] MEDS ORDERED: Iron Sucrose 100 MG in NS 55 ML IVPB ONE (13:00)
[2016-08-11] MEDS: DuoNeb 0.5-3(2.5)mg/3ml neb HHN PRN ×2 (14:02→21:59)
[2016-08-11 16:00] VITALS: BP 127/100
--- NOTE | 2016-08-11 18:57 | Internal Med Progress Note ---
Subjective Date of Service: Aug 11, 2016 Physician Name Tadeo Verdin Attending Physician Steve Rader MD Current Medications Medications (Trade) Dose Ordered Sig/Shraddha Route PRN Reason Start Time Stop Time Status Last Admin Dose Admin Albuterol/ Ipratropium (DuoNeb 0.5-3(2.5)mg/3ml) 3 ml Q4H PRN HHN dyspnea 08/09/16 12:00 08/14/16 11:59 08/11/16 14:02 Dextrose STAT PRN IV Hypoglycemia 08/09/16 12:00 09/08/16 11:59 Heparin Sodium (Porcine) (Heparin 5000 units/ml) 5,000 units EVERY 12 HOURS SUBQ 08/09/16 21:00 09/08/16 20:59 08/11/16 09:01 Insulin Aspart (NovoLOG) BEFORE MEALS AND HS SUBQ 08/09/16 13:45 09/08/16 13:44 08/10/16 20:46 Ketorolac Tromethamine (Toradol 30mg) 30 mg Q8H PRN IV moderate pain 4-6 08/09/16 12:00 08/14/16 11:59 Lorazepam (Ativan 2mg/ml 1ml) 0.5 mg Q4H PRN IV For Anxiety 08/09/16 12:00 08/16/16 11:59 08/10/16 03:23 Methylprednisolone Sodium Succinate (Solu-MEDROL) 60 mg EVERY 8 HOURS IV 08/11/16 22:00 09/10/16 21:59 Morphine Sulfate (Morphine Sulfate) 2 mg Q4H PRN IVP severe pain 7-10 08/09/16 12:00 08/16/16 11:59 Nicotine (Nicoderm) 1 patch Q24H TDERMAL 08/09/16 14:00 09/08/16 13:59 08/11/16 14:45 Nitroglycerin (Ntg) 0.4 mg Q5M X 3 DOSES PRN SL Prn Chest Pain 08/09/16 12:00 09/08/16 11:59 Ondansetron HCl (Zofran) 4 mg Q6H PRN IVP Nausea & Vomiting 08/09/16 12:00 09/08/16 11:59 Piperacillin Sod/ Tazobactam Sod/ Dextrose (Zosyn/D5W) 110 ml @ 27.5 mls/hr EVERY 8 HOURS IVPB 08/09/16 14:00 08/14/16 13:59 08/11/16 13:30 Promethazine HCl/ Codeine (Phenergan with Codeine) 5 ml Q6H PRN ORAL cough 08/09/16 12:00 09/08/16 11:59 Temazepam (Restoril) 15 mg HSPRN PRN ORAL Insomnia 08/09/16 21:00 08/16/16 20:59 Theophylline (Dustin-Dur) 100 mg EVERY 12 HOURS ORAL 08/09/16 21:00 09/08/16 20:59 08/11/16 08:58 Vitamin A/Vitamin D (A & D Oint) 1 applic EVERY 12 HOURS TOPIC 08/09/16 21:00 09/08/16 20:59 08/11/16 09:05 Allergies: Coded Allergies: No Known Allergies (Unverified , 06/17/16) ROS Limited/Unobtainable: Yes Subjective 65 YO M admitted with shortness of breath and respiratory failure. JORDAN. Continues on BIPAP. Cover for Int Med-Dr Rader. Objective Last Vital Signs Date Time Temp Pulse Resp B/P Pulse Ox O2 Delivery O2 Flow Rate FiO2 08/11/16 17:20 111 23 94 Facial 5.0 40 08/11/16 16:00 97.7 127/100 Laboratory Tests Test 08/11/16 05:30 08/11/16 08:05 White Blood Count 11.9 K/UL (4.8-10.8) #H Red Blood Count 3.73 M/UL (4.70-6.10) L Hemoglobin 9.9 G/DL (14.2-18.0) L Hematocrit 33.2 % (42.0-52.0) L Mean Corpuscular Volume 89 FL (80-99) Mean Corpuscular Hemoglobin 26.5 PG (27.0-31.0) L Mean Corpuscular Hemoglobin Concent 29.8 G/DL (32.0-36.0) L Red Cell Distribution Width 18.9 % (11.6-14.8) H Platelet Count 309 K/UL (150-450) Mean Platelet Volume 7.0 FL (6.5-10.1) Neutrophils (%) (Auto) % (45.0-75.0) Lymphocytes (%) (Auto) % (20.0-45.0) Monocytes (%) (Auto) % (1.0-10.0) Eosinophils (%) (Auto) % (0.0-3.0) Basophils (%) (Auto) % (0.0-2.0) Differential Total Cells Counted 100 Neutrophils % (Manual) 87 % (45-75) H Lymphocytes % (Manual) 7 % (20-45) L Monocytes % (Manual) 6 % (1-10) Eosinophils % (Manual) 0 % (0-3) Basophils % (Manual) 0 % (0-2) Band Neutrophils 0 % (0-8) Platelet Estimate Adequate Platelet Morphology Normal Hypochromasia 1+ Anisocytosis 1+ Sodium Level 143 mEQ/L (135-145) Potassium Level 4.0 mEQ/L (3.4-4.9) Chloride Level 92 mEQ/L (98-107) L Carbon Dioxide Level 47 mEQ/L (20-30) *H Anion Gap 4 (5-15) L Blood Urea Nitrogen 11 mg/dL (7-23) Creatinine 0.6 mg/dL (0.7-1.2) L Estimat Glomerular Filtration Rate > 60 mL/min (>60) Glucose Level 110 mg/dL (74-106) H Calcium Level 9.7 mg/dL (8.6-10.2) Iron Level 29 ug/dL (59-158) L Total Iron Binding Capacity 283 ug/dL (250-400) Percent Iron Saturation 10 % (15-50) L Unsaturated Iron Binding 254 ug/dL (112-346) Ferritin 54 ng/mL (10-230) Vitamin B12 Level 1434 pg/mL (211-946) H Folate Pending Arterial Blood pH Pending Arterial Blood Partial Pressure CO2 Pending Arterial Blood Partial Pressure O2 Pending Arterial Blood HCO3 Pending Arterial Blood Oxygen Saturation Pending Arterial Blood Base Excess Pending Joseluis Test Pending Microbiology Date/Time Source Procedure Growth Status 08/09/16 07:25 Blood Not Otherwise Specified Blood Culture - Preliminary NO GROWTH AFTER 48 HOURS Resulted 08/09/16 07:00 Blood Not Otherwise Specified Blood Culture - Preliminary NO GROWTH AFTER 48 HOURS Resulted 08/09/16 19:30 Sputum Gram Stain - Final Resulted 08/09/16 19:30 Sputum Sputum Culture Pending Resulted 08/09/16 18:30 Nasal Nares Influenza Types A,B Antigen (JACINTA) - Final Complete 08/09/16 08:31 Nasal Nares MRSA Culture - Final NO METHICILLIN RESISTANT STAPH AUREUS... Complete 08/09/16 08:31 Rectum VRE Culture - Final NO VANCOMYCIN RESISTANT ENTEROCOCCUS ... Complete Intake and Output 08/10/16 08/11/16 19:00 07:00 Intake Total 842.5 ml 110.0 ml Output Total 620 ml 550 ml Balance 222.5 ml -440.0 ml Intake Oral 650 ml IV Total 192.5 ml 110.0 ml Output Urine Total 620 ml 550 ml # Voids 5 2 Objective General Appearance: moderate distress, thin EENT: PERRL/EOMI, normal ENT inspection Neck: non-tender, normal alignment, supple Cardiovascular: normal peripheral pulses, normal rate, regular rhythm, no gallop/murmur, no JVD Respiratory/Chest: crackles/rales, rhonchi - bilaterally, expiratory wheezing Abdomen: normal bowel sounds, non tender, soft, no organomegaly, no mass Extremities: normal range of motion, non-tender 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 Await CT chest. Cont BIPAP and zosyn (2) Acute respiratory failure Assessment & Plan: Cont BIPAP per pulmonary Status: not improved TADEO VERDIN Aug 11, 2016 18:56
[2016-08-11 20:00] VITALS: BP 125/93
[2016-08-12] VITALS: BP 142/97
[2016-08-12 04:00] VITALS: BP 135/83
[2016-08-12] MEDS: DuoNeb 0.5-3(2.5)mg/3ml neb HHN PRN ×3 (04:30→22:43)
[2016-08-12 05:14] LABS: MEAN CORPUSCULAR HEMOGLOBIN 27.2 PG (27.0-31.0); MEAN CORPUSCULAR HGB CONC 30.4 G/DL (32.0-36.0); MEAN CORPUSCULAR VOLUME 90 FL (80-99); MEAN PLATELET VOLUME 7.1 FL (6.5-10.1); PLATELET COUNT 287 K/UL (150-450); RED BLOOD COUNT 3.46 M/UL (4.70-6.10); RED CELL DISTRIBUTION WIDTH 18.5 % (11.6-14.8); WHITE BLOOD COUNT 7.8 K/UL (4.8-10.8)
[2016-08-12] MEDS: Zoysn 3.37gm in D5W 110ml IVPB SCH (05:31)
[2016-08-12] MEDS: Solu-MEDROL 125mg Inj IV SCH (05:31)
[2016-08-12 05:34] LABS: ANION GAP 5 (5-15); CALCIUM 9.2 mg/dL (8.6-10.2); CHLORIDE 90 mEQ/L (98-107); CREATININE 0.7 mg/dL (0.7-1.2); GLOMERULAR FILTRATION RATE > 60 mL/min (>60); HEMOLYSIS 4; POTASSIUM 3.9 mEQ/L (3.4-4.9); SODIUM 141 mEQ/L (135-145)
[2016-08-12 05:35] LABS: CARBON DIOXIDE 46 mEQ/L (20-30)
[2016-08-12] MEDS: NovoLOG Insulin Flexpen SUBQ SCH (05:57)
[2016-08-12 08:00] VITALS: BP 135/85
[2016-08-12] MEDS: Theophylline ER 100mg ORAL SCH ×2 (08:13→21:00)
[2016-08-12] MEDS: Vitamin A&D Oint 2oz Tube TOPIC SCH ×2 (08:14→21:13)
[2016-08-12] MEDS: Heparin 5000 units/ml inj SUBQ SCH ×2 (08:15→21:00)
--- NOTE | 2016-08-12 11:23 | Pulmonology Progress Note ---
Assessment/Plan Problems: (1) COPD exacerbation (2) Bronchitis (3) Emphysema of lung Assessment/Plan taper off biapa taper steroids no sputum yet dc sliding scale, pt doesn't want insulin med/surg if tolerates off bipap. Subjective ROS Limited/Unobtainable: No Interval Events: comfortable Allergies: Coded Allergies: No Known Allergies (Unverified , 06/17/16) Objective Last 24 Hour Vital Signs Date Time Temp Pulse Resp B/P Pulse Ox O2 Delivery O2 Flow Rate FiO2 08/12/16 10:37 111 16 100 Nasal Cannula 4.0 36 08/12/16 10:36 111 16 100 4.0 08/12/16 10:17 36 08/12/16 10:17 99 19 100 Nasal Cannula 4.0 36 08/12/16 09:25 101 16 98 4.0 08/12/16 08:00 105 08/12/16 08:00 4.0 08/12/16 08:00 98.2 108 19 135/85 100 Nasal Cannula 4.0 08/12/16 07:10 109 18 100 08/12/16 07:10 109 18 Nasal Cannula 4.0 36 08/12/16 04:39 99 16 98 Nasal Cannula 4.0 36 08/12/16 04:33 36 08/12/16 04:33 98 16 96 4.0 08/12/16 04:32 99 16 96 Nasal Cannula 4.0 36 08/12/16 04:00 97.7 116 18 135/83 97 Nasal Cannula 4.0 08/12/16 04:00 4.0 08/12/16 03:44 99 08/12/16 02:44 99 16 96 4.0 08/12/16 01:00 105 16 95 4.0 08/12/16 00:00 40 08/12/16 00:00 96.6 97 20 142/97 98 Simple Mask 08/11/16 23:38 99 08/11/16 23:10 94 18 96 Facial 40 08/11/16 22:19 89 16 96 Bi-pap 40 08/11/16 22:16 101 18 97 Facial 40 08/11/16 22:04 101 16 Nasal Cannula 4.0 36 08/11/16 22:03 101 16 95 Nasal Cannula 4.0 36 08/11/16 22:03 36 08/11/16 21:20 65 16 96 4.0 08/11/16 20:07 4.0 08/11/16 20:00 98.3 91 18 125/93 100 Nasal Cannula 4.0 08/11/16 20:00 82 08/11/16 19:15 63 16 96 4.0 08/11/16 17:20 111 23 94 Facial 5.0 40 08/11/16 16:48 4.0 08/11/16 16:00 107 08/11/16 16:00 97.7 95 20 127/100 100 08/11/16 15:30 101 21 100 Facial 30 08/11/16 13:21 90 22 100 Facial 30 08/11/16 12:00 30 08/11/16 12:00 97.0 116 24 147/102 99 Nasal Cannula 5.0 08/11/16 12:00 113 08/11/16 11:30 101 23 95 Facial 4.0 36 Intake and Output 08/11/16 08/12/16 19:00 07:00 Intake Total 110.0 ml 438.0 ml Output Total 500 ml 1300 ml Balance -390.0 ml -862.0 ml Intake Oral 370 ml IV Total 110.0 ml 68.0 ml Output Urine Total 500 ml 1300 ml General Appearance: WD/WN HEENT: normocephalic, atraumatic Respiratory/Chest: chest wall non-tender, lungs clear Cardiovascular: normal peripheral pulses, normal rate Abdomen: normal bowel sounds, soft, non tender Skin: no rash, no lesions 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 Microbiology Date/Time Source Procedure Growth Status 08/09/16 19:30 Sputum Gram Stain - Final Resulted 08/09/16 19:30 Sputum Sputum Culture Pending Resulted 08/09/16 18:30 Nasal Nares Influenza Types A,B Antigen (JACINTA) - Final Complete Laboratory Tests 08/12/16 04:25: White Blood Count 7.8, Red Blood Count 3.46L, Hemoglobin 9.4L, Hematocrit 31.0L , Mean Corpuscular Volume 90, Mean Corpuscular Hemoglobin 27.2, Mean Corpuscular Hemoglobin Concent 30.4L, Red Cell Distribution Width 18.5H, Platelet Count 287, Mean Platelet Volume 7.1, Neutrophils (%) (Auto) , Lymphocytes (%) (Auto) , Monocytes (%) (Auto) , Eosinophils (%) (Auto) , Basophils (%) (Auto) , Sodium Level 141, Potassium Level 3.9, Chloride Level 90L , Carbon Dioxide Level 46*H, Anion Gap 5, Blood Urea Nitrogen 9, Creatinine 0.7 , Estimat Glomerular Filtration Rate > 60, Glucose Level 205H, Calcium Level 9.2 Current Medications Medications (Trade) Dose Ordered Sig/Shraddha Route PRN Reason Start Time Stop Time Status Last Admin Dose Admin Albuterol/ Ipratropium (DuoNeb 0.5-3(2.5)mg/3ml) 3 ml Q4H PRN HHN dyspnea 08/09/16 12:00 08/14/16 11:59 08/12/16 10:17 Dextrose STAT PRN IV Hypoglycemia 08/09/16 12:00 09/08/16 11:59 Heparin Sodium (Porcine) (Heparin 5000 units/ml) 5,000 units EVERY 12 HOURS SUBQ 08/09/16 21:00 09/08/16 20:59 08/12/16 08:15 Insulin Aspart (NovoLOG) BEFORE MEALS AND HS SUBQ 08/09/16 13:45 09/08/16 13:44 08/12/16 05:57 Ketorolac Tromethamine (Toradol 30mg) 30 mg Q8H PRN IV moderate pain 4-6 08/09/16 12:00 08/14/16 11:59 Lorazepam (Ativan 2mg/ml 1ml) 0.5 mg Q4H PRN IV For Anxiety 08/09/16 12:00 08/16/16 11:59 08/10/16 03:23 Methylprednisolone Sodium Succinate (Solu-MEDROL) 60 mg EVERY 8 HOURS IV 08/11/16 22:00 09/10/16 21:59 08/12/16 05:31 Morphine Sulfate (Morphine Sulfate) 2 mg Q4H PRN IVP severe pain 7-10 08/09/16 12:00 08/16/16 11:59 Nicotine (Nicoderm) 1 patch Q24H TDERMAL 08/09/16 14:00 09/08/16 13:59 08/11/16 14:45 Nitroglycerin (Ntg) 0.4 mg Q5M X 3 DOSES PRN SL Prn Chest Pain 08/09/16 12:00 3/5/17 11:59 Ondansetron HCl (Zofran) 4 mg Q6H PRN IVP Nausea & Vomiting 08/09/16 12:00 09/08/16 11:59 Piperacillin Sod/ Tazobactam Sod/ Dextrose (Zosyn/D5W) 110 ml @ 27.5 mls/hr EVERY 8 HOURS IVPB 08/09/16 14:00 08/14/16 13:59 08/12/16 05:31 Promethazine HCl/ Codeine (Phenergan with Codeine) 5 ml Q6H PRN ORAL cough 08/09/16 12:00 09/08/16 11:59 Temazepam (Restoril) 15 mg HSPRN PRN ORAL Insomnia 08/09/16 21:00 08/16/16 20:59 Theophylline (Dustin-Dur) 100 mg EVERY 12 HOURS ORAL 08/09/16 21:00 09/08/16 20:59 08/12/16 08:13 Vitamin A/Vitamin D (A & D Oint) 1 applic EVERY 12 HOURS TOPIC 08/09/16 21:00 09/08/16 20:59 08/12/16 08:14 REN WRIGHT Aug 12, 2016 11:23
[2016-08-12 12:00] VITALS: BP_SYST 135; BP_SYST 142; BP_DIAS 80; BP_DIAS 85
[2016-08-12 12:17] LABS: INR 1.2 (0.9-1.1); MEAN CORPUSCULAR HEMOGLOBIN 26.7 PG (27.0-31.0); MEAN CORPUSCULAR HGB CONC 30.1 G/DL (32.0-36.0); MEAN CORPUSCULAR VOLUME 89 FL (80-99); MEAN PLATELET VOLUME 7.5 FL (6.5-10.1); PLATELET COUNT 244 K/UL (150-450); PROTHROMBIN TIME 12.5 SEC (9.30-11.50); RED BLOOD COUNT 3.69 M/UL (4.70-6.10); RED CELL DISTRIBUTION WIDTH 18.2 % (11.6-14.8)
[2016-08-12 12:39] LABS: RETICULOCYTE COUNT 0.6 % (0.0-2.0)
[2016-08-12 12:57] LABS: ERYTHROCYTE SEDIMENTATION RATE 39 MM/HR (0-20)
[2016-08-12 13:00] LABS: BAND NEUTROPHILS % (MANUAL) 1 % (0-8); BASOPHILS % (MANUAL) 0 % (0-2); EOSINOPHILS % (MANUAL) 0 % (0-3); LYMPHOCYTES % (MANUAL) 4 % (20-45); NEUTROPHILS % (MANUAL) 92 % (45-75); NUCLEATED RED BLOOD CELLS 1 /100 WBC; PLATELET ESTIMATE ADEQUATE; PLATELET MORPHOLOGY NORMAL; TOTAL CELLS COUNTED 100
[2016-08-12 13:01] LABS: HYPOCHROMASIA 2+
[2016-08-12 13:02] LABS: ANISOCYTOSIS 1+
[2016-08-12 13:03] LABS: PATH BLOOD SMEAR/OMC SENT TO PATHOLOGIST
[2016-08-12] MEDS ORDERED: Nitroglycerin Subl 0.4mg tab (Bottle Of 25) SL PRN (14:00)
[2016-08-12] MEDS: Piperacillin/Tazobactam 3.375 GM in D5W 110 ML IVPB SCH ×2 (14:53→21:14)
[2016-08-12 16:00] VITALS: BP 124/71
[2016-08-12] MEDS ORDERED: LORazepam Inj 2mg/ml 1ml IV PRN (16:00)
[2016-08-12] MEDS ORDERED: Morphine Sulfate 2mg/ml Inj IVP PRN (16:00)
--- NOTE | 2016-08-12 16:37 | Diagnostic Imaging Report ---
Clinical Indication: SOB shortness of breath, followup of previously reported right upper lobe pulmonary nodule Technique: IV administration nonionic contrast. Spiral acquisition obtained through the chest. Multiplanar reconstructions generated. Total dose length product 476 mGycm. CTDIvol(s) 8, 48, 11 mGy Comparison: 06/20/2016 Findings: Within the right upper lobe, there is a triangular opacity which measures approximately 8 x 3 mm, previously approximately 12 x 6, appearing significantly less conspicuous than on the prior study and also less masslike. Again demonstrated are bullous changes in the right upper lobe, as well as generalized hyperinflation. No new nodules or masses are demonstrated. Reticular opacities are again demonstrated in the medial left upper lobe. Subpleural linear opacities again demonstrated in the left lung, and some reticular opacities are seen within the right middle lobe. No infiltrates. No effusions. The heart size is normal. There is slightly increased anterior wall pericardial thickening versus fluid, currently measuring approximately 7 mm in thickness. No mediastinal or hilar mass or adenopathy. The included thyroid is unremarkable. No axillary or chest wall mass or adenopathy. The included upper abdominal anatomy is unremarkable. The bones demonstrates abnormal mixed osteolytic and osseous sclerotic appearance of the L1 vertebral body which is in retrospect evident previously. There is also abnormality of the inferior cervical spine which is probably degenerative in nature. Prior study also demonstrates extensive mixed mostly osteosclerotic appearance of much of the lumbar spine. The osteolytic changes could represent large Schmorl's nodes, but the osteosclerotic process is more extensive than would be expected based on this degenerative change. Impression: Previously described triangular right upper lobe opacity appears somewhat less conspicuous and less masslike than on the prior exam. This favors this being a benign process. However, apparent decrease in size could also be due to misregistration artifact, and therefore further short interval followup is recommended, particularly given the short duration of the current interval from the previous exam. Recommend further followup CT in 6 months Other chronic changes, as described, including evidence of COPD, stable Small anterior wall pericardial effusion, appearing slightly larger than on the previous study. Extensive bony changes of the included lumbar and lower cervical spine. Suspect: The bases of degenerative change, but neoplastic process cannot be completely ruled out. Consider MRI if clinically indicated for better characterization The CT scanner at [facility] is accredited by the [employer] and the scans are performed using protocols designed to limit radiation exposure to as low as reasonably achievable to attain images of sufficient resolution adequate for diagnostic evaluation.
[2016-08-12] MEDS ORDERED: Promethazine/Codeine 5ml UD ORAL PRN (18:00)
--- NOTE | 2016-08-12 19:27 | Internal Med Progress Note ---
Subjective Date of Service: Aug 12, 2016 Physician Name Tadeo Verdin Attending Physician Steve Rader MD Current Medications Medications (Trade) Dose Ordered Sig/Shraddha Route PRN Reason Start Time Stop Time Status Last Admin Dose Admin Albuterol/ Ipratropium (DuoNeb 0.5-3(2.5)mg/3ml) 3 ml Q4H PRN HHN dyspnea 08/12/16 16:00 08/17/16 15:59 Dextrose (Dextrose 50%) STAT PRN IV Hypoglycemia 08/13/16 12:00 09/12/16 11:59 Heparin Sodium (Porcine) (Heparin 5000 units/ml) 5,000 units EVERY 12 HOURS SUBQ 08/12/16 21:00 09/11/16 20:59 Ketorolac Tromethamine (Toradol 30mg) 30 mg Q8H PRN IV moderate pain 4-6 08/12/16 20:00 08/17/16 19:59 Lorazepam (Ativan 2mg/ml 1ml) 0.5 mg Q4H PRN IV For Anxiety 08/12/16 16:00 08/19/16 15:59 Methylprednisolone Sodium Succinate (Solu-MEDROL) 40 mg DAILY IVP 08/13/16 09:00 09/12/16 08:59 Morphine Sulfate (Morphine Sulfate) 2 mg Q4H PRN IVP severe pain 7-10 08/12/16 16:00 08/19/16 15:59 Nicotine (Nicoderm) 1 patch Q24H TDERMAL 08/12/16 14:00 09/11/16 13:59 08/12/16 14:53 Nitroglycerin (Ntg) 0.4 mg Q5M X 3 DOSES PRN SL Prn Chest Pain 08/12/16 14:00 09/11/16 13:59 Ondansetron HCl (Zofran) 4 mg Q6H PRN IVP Nausea & Vomiting 08/12/16 18:00 09/11/16 17:59 Piperacillin Sod/ Tazobactam Sod/ Dextrose (Zosyn/D5W) 110 ml @ 27.5 mls/hr EVERY 8 HOURS IVPB 08/12/16 14:00 08/19/16 13:59 08/12/16 14:53 Promethazine HCl/ Codeine (Phenergan with Codeine) 5 ml Q6H PRN ORAL cough 08/12/16 18:00 09/11/16 17:59 Temazepam (Restoril) 15 mg HSPRN PRN ORAL Insomnia 08/12/16 21:00 08/19/16 20:59 Theophylline (Dustin-Dur) 100 mg EVERY 12 HOURS ORAL 08/12/16 21:00 09/11/16 20:59 Vitamin A/Vitamin D (A & D Oint) 1 applic EVERY 12 HOURS TOPIC 08/12/16 21:00 09/11/16 20:59 Allergies: Coded Allergies: No Known Allergies (Unverified , 06/17/16) ROS Limited/Unobtainable: No Constitutional: Reports: no symptoms HEENT: Reports: no symptoms Cardiovascular: Reports: no symptoms Respiratory: Reports: shortness of breath Gastrointestinal/Abdominal: Reports: no symptoms Genitourinary: Reports: no symptoms Neurologic/Psychiatric: Reports: no symptoms Subjective 65 YO M admitted with shortness of breath and respiratory failure. Tolerating nasal canula. Cover for Int Wilder-Dr Rader. Objective Last Vital Signs Date Time Temp Pulse Resp B/P Pulse Ox O2 Delivery O2 Flow Rate FiO2 08/12/16 16:00 4.0 08/12/16 16:00 98.2 93 20 124/71 97 Nasal Cannula 08/12/16 12:00 40 Laboratory Tests Test 08/12/16 04:25 08/12/16 11:40 White Blood Count 7.8 K/UL (4.8-10.8) 10.0 K/UL (4.8-10.8) Red Blood Count 3.46 M/UL (4.70-6.10) L 3.69 M/UL (4.70-6.10) L Hemoglobin 9.4 G/DL (14.2-18.0) L 9.9 G/DL (14.2-18.0) L Hematocrit 31.0 % (42.0-52.0) L 32.7 % (42.0-52.0) L Mean Corpuscular Volume 90 FL (80-99) 89 FL (80-99) Mean Corpuscular Hemoglobin 27.2 PG (27.0-31.0) 26.7 PG (27.0-31.0) L Mean Corpuscular Hemoglobin Concent 30.4 G/DL (32.0-36.0) L 30.1 G/DL (32.0-36.0) L Red Cell Distribution Width 18.5 % (11.6-14.8) H 18.2 % (11.6-14.8) H Platelet Count 287 K/UL (150-450) 244 K/UL (150-450) Mean Platelet Volume 7.1 FL (6.5-10.1) 7.5 FL (6.5-10.1) Neutrophils (%) (Auto) % (45.0-75.0) % (45.0-75.0) Lymphocytes (%) (Auto) % (20.0-45.0) % (20.0-45.0) Monocytes (%) (Auto) % (1.0-10.0) % (1.0-10.0) Eosinophils (%) (Auto) % (0.0-3.0) % (0.0-3.0) Basophils (%) (Auto) % (0.0-2.0) % (0.0-2.0) Sodium Level 141 mEQ/L (135-145) Potassium Level 3.9 mEQ/L (3.4-4.9) Chloride Level 90 mEQ/L (98-107) L Carbon Dioxide Level 46 mEQ/L (20-30) *H Anion Gap 5 (5-15) Blood Urea Nitrogen 9 mg/dL (7-23) Creatinine 0.7 mg/dL (0.7-1.2) Estimat Glomerular Filtration Rate > 60 mL/min (>60) Glucose Level 205 mg/dL (74-106) H Calcium Level 9.2 mg/dL (8.6-10.2) Differential Total Cells Counted 100 Neutrophils % (Manual) 92 % (45-75) H Lymphocytes % (Manual) 4 % (20-45) L Monocytes % (Manual) 3 % (1-10) Eosinophils % (Manual) 0 % (0-3) Basophils % (Manual) 0 % (0-2) Band Neutrophils 1 % (0-8) Nucleated Red Blood Cells 1 /100 WBC Platelet Estimate Adequate Platelet Morphology Normal Hypochromasia 2+ Anisocytosis 1+ Erythrocyte Sedimentation Rate 39 MM/HR (0-20) H Reticulocyte Count 0.6 % (0.0-2.0) Prothrombin Time 12.5 SEC (9.30-11.50) H Prothromb Time International Ratio 1.2 (0.9-1.1) H Activated Partial Thromboplast Time 29 SEC (23-33) Iron Level 156 ug/dL (59-158) Total Iron Binding Capacity 256 ug/dL (250-400) Percent Iron Saturation 61 % (15-50) H Unsaturated Iron Binding 100 ug/dL (112-346) L Lactate Dehydrogenase 182 U/L (135-230) Carcinoembryonic Antigen 6.2 ng/mL H Vitamin B12 Level 1350 pg/mL (211-946) H Folate Pending Microbiology Date/Time Source Procedure Growth Status 08/09/16 19:30 Sputum Gram Stain - Final Resulted 08/09/16 19:30 Sputum Sputum Culture Pending Resulted Intake and Output 08/11/16 08/12/16 19:00 07:00 Intake Total 110.0 ml 438.0 ml Output Total 500 ml 1300 ml Balance -390.0 ml -862.0 ml Intake Oral 370 ml IV Total 110.0 ml 68.0 ml Output Urine Total 500 ml 1300 ml Objective General Appearance: moderate distress, thin EENT: PERRL/EOMI, normal ENT inspection Neck: non-tender, normal alignment, supple Cardiovascular: normal peripheral pulses, normal rate, regular rhythm, no gallop/murmur, no JVD Respiratory/Chest: Nasal canula; crackles/rales, rhonchi - bilaterally, expiratory wheezing Abdomen: normal bowel sounds, non tender, soft, no organomegaly, no mass Extremities: normal range of motion, non-tender 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 Await CT chest. Cont nasal canula, IV solumedrol and zosyn (2) Acute respiratory failure Assessment & Plan: Cont nasal canula per pulmonary (3) Pneumonia Assessment & Plan: Right upper lobe. Cont zosyn. Status: progressing TADEO VERDIN Aug 12, 2016 19:27
[2016-08-12 20:00] VITALS: BP 158/84
[2016-08-12] MEDS ORDERED: Ketorolac 30mg Inj IV PRN (20:00)
[2016-08-13] VITALS: BP 126/90
[2016-08-13] MEDS: DuoNeb 0.5-3(2.5)mg/3ml neb HHN PRN ×5 (03:11→23:32)
[2016-08-13 04:00] VITALS: BP 139/93
[2016-08-13] MEDS: Piperacillin/Tazobactam 3.375 GM in D5W 110 ML IVPB SCH ×3 (05:38→21:18)
[2016-08-13 07:02] LABS: BASOPHILS % (AUTO) 0.9 % (0.0-2.0); EOSINOPHILS % (AUTO) 0.2 % (0.0-3.0); LYMPHOCYTES % (AUTO) 17.7 % (20.0-45.0); MEAN CORPUSCULAR HGB CONC 30.8 G/DL (32.0-36.0); MEAN CORPUSCULAR VOLUME 88 FL (80-99); MONOCYTES % (AUTO) 9.7 % (1.0-10.0); NEUTROPHILS % (AUTO) 71.4 % (45.0-75.0); PLATELET COUNT 258 K/UL (150-450); RED BLOOD COUNT 3.68 M/UL (4.70-6.10); RED CELL DISTRIBUTION WIDTH 18.5 % (11.6-14.8); WHITE BLOOD COUNT 9.3 K/UL (4.8-10.8)
[2016-08-13 07:21] LABS: ALANINE AMINOTRANSFERASE 24 U/L (3-41); ALBUMIN/GLOBULIN RATIO 0.8 (1.0-2.7); ASPARTATE AMINO TRANSFERASE 14 U/L (5-40); CALCIUM 9.2 mg/dL (8.6-10.2); CHLORIDE 91 mEQ/L (98-107); CREATININE 0.6 mg/dL (0.7-1.2); GLOMERULAR FILTRATION RATE > 60 mL/min (>60); HEMOLYSIS 2; POTASSIUM 3.8 mEQ/L (3.4-4.9); SODIUM 143 mEQ/L (135-145)
[2016-08-13 07:35] LABS: ANION GAP 3 (5-15); CARBON DIOXIDE 49 mEQ/L (20-30)
[2016-08-13 08:00] VITALS: BP 122/77
[2016-08-13] MEDS: Solu-MEDROL 40mg Inj IVP SCH (08:33)
[2016-08-13] MEDS: Vitamin A&D Oint 2oz Tube TOPIC SCH ×2 (08:33→21:18)
[2016-08-13] MEDS: Theophylline ER 100mg ORAL SCH ×2 (08:33→21:18)
[2016-08-13] MEDS: Heparin 5000 units/ml inj SUBQ SCH ×2 (08:38→21:21)
[2016-08-13] MEDS ORDERED: Solu-MEDROL 40mg Inj IVP SCH (09:00)
--- NOTE | 2016-08-13 09:09 | Diagnostic Imaging Report ---
Indication: SOB Technique: One view of the chest Comparison: 08/09/2016 Findings: Projection is lordotic. Lungs are hyperinflated. Normal heart size. Tortuous aorta. Previously reported left upper lobe calcified granuloma is not visible on this exam. No significant change Impression: COPD changes. No acute process
--- NOTE | 2016-08-13 10:17 | Diagnostic Imaging Report ---
Indication: DYSPNEA Technique: One view of the chest Comparison: 08/12/2016 Findings: Lungs remain hyperinflated. Some atelectasis is again demonstrated both lung bases despite this. Lungs and pleural spaces otherwise remain clear. Heart size. Findings are unchanged Impression: Unchanged, over one day, findings as above.
[2016-08-13 11:54] VITALS: BP 131/85
--- NOTE | 2016-08-13 14:45 | Pulmonology Progress Note ---
Assessment/Plan Problems: (1) COPD exacerbation (2) Bronchitis (3) Emphysema of lung (4) Severe anemia (5) Lung nodule Assessment/Plan taper off biapa taper steroids, on solumedrol 40 qd sputum showing zoltan CT scan reviewed, pulmonary nodule is smaller pt anemia with low reti count, probably c/w Bone marrow disease. stool OB pending Subjective ROS Limited/Unobtainable: No Interval Events: still short of breath Allergies: Coded Allergies: No Known Allergies (Unverified , 06/17/16) Objective Last 24 Hour Vital Signs Date Time Temp Pulse Resp B/P Pulse Ox O2 Delivery O2 Flow Rate FiO2 08/13/16 13:11 112 18 99 Nasal Cannula 4.0 36 08/13/16 13:11 36 08/13/16 13:11 113 18 97 Nasal Cannula 4.0 36 08/13/16 12:00 4.0 08/13/16 11:54 97.7 113 20 131/85 100 Nasal Cannula 08/13/16 08:30 36 08/13/16 08:30 113 16 100 Nasal Cannula 4.0 36 08/13/16 08:30 112 16 96 Nasal Cannula 4.0 36 08/13/16 08:00 98.4 107 18 122/77 100 Room Air 08/13/16 08:00 4.0 08/13/16 07:50 111 16 Nasal Cannula 4.0 36 08/13/16 04:00 98.1 110 18 139/93 96 Nasal Cannula 4.0 08/13/16 04:00 4.0 08/13/16 03:24 110 16 100 Nasal Cannula 4.0 36 08/13/16 03:10 36 08/13/16 03:10 101 19 92 Nasal Cannula 4.0 36 08/13/16 01:43 101 18 95 Facial 35 08/13/16 00:00 97.3 98 18 126/90 96 Room Air 08/13/16 00:00 40 08/12/16 22:45 115 16 100 Bi-pap 35 08/12/16 22:44 36 08/12/16 22:44 111 19 95 Nasal Cannula 4.0 36 08/12/16 22:39 107 17 95 Facial 35 08/12/16 20:00 4.0 08/12/16 20:00 97.8 87 20 158/84 97 Room Air 08/12/16 19:00 118 18 Nasal Cannula 4.0 36 08/12/16 16:00 4.0 08/12/16 16:00 98.2 93 20 124/71 97 Nasal Cannula 2.0 Intake and Output 08/12/16 08/13/16 19:00 07:00 Intake Total 430.0 ml 775.0 ml Output Total 250 ml 960 ml Balance 180.0 ml -185.0 ml Intake Oral 320 ml 720 ml IV Total 110.0 ml 55.0 ml Output Urine Total 250 ml 960 ml # Voids 2 General Appearance: cachetic HEENT: normocephalic, atraumatic Respiratory/Chest: chest wall non-tender, normal breath sounds Cardiovascular: normal peripheral pulses, normal rate Abdomen: normal bowel sounds, soft, non tender Genitourinary: normal external genitalia 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 Laboratory Tests 08/13/16 04:35: Sodium Level 143, Potassium Level 3.8, Chloride Level 91L, Carbon Dioxide Level 49*H, Anion Gap 3L, Blood Urea Nitrogen 7, Creatinine 0.6L, Estimat Glomerular Filtration Rate > 60, Glucose Level 100#, Calcium Level 9.2, Total Bilirubin 0.2 , Aspartate Amino Transf (AST/SGOT) 14, Alanine Aminotransferase (ALT/SGPT) 24, Alkaline Phosphatase 65, Total Protein 6.0L, Albumin 2.7L, Globulin 3.3, Albumin /Globulin Ratio 0.8L 08/13/16 04:55: White Blood Count 9.3, Red Blood Count 3.68L, Hemoglobin 9.9L, Hematocrit 32.3L , Mean Corpuscular Volume 88, Mean Corpuscular Hemoglobin 27.0, Mean Corpuscular Hemoglobin Concent 30.8L, Red Cell Distribution Width 18.5H, Platelet Count 258, Mean Platelet Volume 7.0, Neutrophils (%) (Auto) 71.4, Lymphocytes (%) (Auto) 17.7L, Monocytes (%) (Auto) 9.7, Eosinophils (%) (Auto) 0.2, Basophils (%) (Auto) 0.9 Current Medications Medications (Trade) Dose Ordered Sig/Shraddha Route PRN Reason Start Time Stop Time Status Last Admin Dose Admin Albuterol/ Ipratropium (DuoNeb 0.5-3(2.5)mg/3ml) 3 ml Q4H PRN HHN dyspnea 08/12/16 16:00 08/17/16 15:59 08/13/16 13:11 Dextrose (Dextrose 50%) STAT PRN IV Hypoglycemia 08/13/16 12:00 09/12/16 11:59 Heparin Sodium (Porcine) (Heparin 5000 units/ml) 5,000 units EVERY 12 HOURS SUBQ 08/12/16 21:00 09/11/16 20:59 08/13/16 08:38 Ketorolac Tromethamine (Toradol 30mg) 30 mg Q8H PRN IV moderate pain 4-6 08/12/16 20:00 08/17/16 19:59 Lorazepam (Ativan 2mg/ml 1ml) 0.5 mg Q4H PRN IV For Anxiety 08/12/16 16:00 08/19/16 15:59 Methylprednisolone Sodium Succinate (Solu-MEDROL) 40 mg DAILY IVP 08/13/16 09:00 09/12/16 08:59 08/13/16 08:33 Morphine Sulfate (Morphine Sulfate) 2 mg Q4H PRN IVP severe pain 7-10 08/12/16 16:00 08/19/16 15:59 Nicotine (Nicoderm) 1 patch Q24H TDERMAL 08/12/16 14:00 09/11/16 13:59 08/13/16 13:26 Nitroglycerin (Ntg) 0.4 mg Q5M X 3 DOSES PRN SL Prn Chest Pain 08/12/16 14:00 09/11/16 13:59 Ondansetron HCl (Zofran) 4 mg Q6H PRN IVP Nausea & Vomiting 08/12/16 18:00 09/11/16 17:59 Piperacillin Sod/ Tazobactam Sod/ Dextrose (Zosyn/D5W) 110 ml @ 27.5 mls/hr EVERY 8 HOURS IVPB 08/12/16 14:00 08/19/16 13:59 08/13/16 13:25 Promethazine HCl/ Codeine (Phenergan with Codeine) 5 ml Q6H PRN ORAL cough 08/12/16 18:00 09/11/16 17:59 Temazepam (Restoril) 15 mg HSPRN PRN ORAL Insomnia 08/12/16 21:00 08/19/16 20:59 Theophylline (Dustin-Dur) 100 mg EVERY 12 HOURS ORAL 08/12/16 21:00 09/11/16 20:59 08/13/16 08:33 Vitamin A/Vitamin D (A & D Oint) 1 applic EVERY 12 HOURS TOPIC 08/12/16 21:00 09/11/16 20:59 08/13/16 08:33 REN WRIGHT Aug 13, 2016 14:45
[2016-08-13] MEDS ORDERED: Tubing IV Secondary IV ONE (15:18)
[2016-08-13] MEDS ORDERED: NS 275ml ONE (15:18)
[2016-08-13 15:58] VITALS: BP 114/83
--- NOTE | 2016-08-13 17:59 | Internal Med Progress Note ---
Subjective Date of Service: Aug 13, 2016 Physician Name Tadeo Verdin Attending Physician Steve Rader MD Current Medications Medications (Trade) Dose Ordered Sig/Shraddha Route PRN Reason Start Time Stop Time Status Last Admin Dose Admin Albuterol/ Ipratropium (DuoNeb 0.5-3(2.5)mg/3ml) 3 ml Q4H PRN HHN dyspnea 08/12/16 16:00 08/17/16 15:59 08/13/16 15:48 Dextrose (Dextrose 50%) STAT PRN IV Hypoglycemia 08/13/16 12:00 09/12/16 11:59 Heparin Sodium (Porcine) (Heparin 5000 units/ml) 5,000 units EVERY 12 HOURS SUBQ 08/12/16 21:00 09/11/16 20:59 08/13/16 08:38 Lorazepam (Ativan 2mg/ml 1ml) 0.5 mg Q4H PRN IV For Anxiety 08/12/16 16:00 08/19/16 15:59 Methylprednisolone Sodium Succinate (Solu-MEDROL) 40 mg DAILY IVP 08/13/16 09:00 09/12/16 08:59 08/13/16 08:33 Morphine Sulfate (Morphine Sulfate) 2 mg Q4H PRN IVP severe pain 7-10 08/12/16 16:00 08/19/16 15:59 Nicotine (Nicoderm) 1 patch Q24H TDERMAL 08/12/16 14:00 09/11/16 13:59 08/13/16 13:26 Nitroglycerin (Ntg) 0.4 mg Q5M X 3 DOSES PRN SL Prn Chest Pain 08/12/16 14:00 09/11/16 13:59 Ondansetron HCl (Zofran) 4 mg Q6H PRN IVP Nausea & Vomiting 08/12/16 18:00 09/11/16 17:59 Piperacillin Sod/ Tazobactam Sod/ Dextrose (Zosyn/D5W) 110 ml @ 27.5 mls/hr EVERY 8 HOURS IVPB 08/12/16 14:00 08/19/16 13:59 08/13/16 13:25 Promethazine HCl/ Codeine (Phenergan with Codeine) 5 ml Q6H PRN ORAL cough 08/12/16 18:00 09/11/16 17:59 Temazepam (Restoril) 15 mg HSPRN PRN ORAL Insomnia 08/12/16 21:00 08/19/16 20:59 Theophylline (Dustin-Dur) 100 mg EVERY 12 HOURS ORAL 08/12/16 21:00 09/11/16 20:59 08/13/16 08:33 Vitamin A/Vitamin D (A & D Oint) 1 applic EVERY 12 HOURS TOPIC 08/12/16 21:00 09/11/16 20:59 08/13/16 08:33 Allergies: Coded Allergies: No Known Allergies (Unverified , 06/17/16) ROS Limited/Unobtainable: No Constitutional: Reports: no symptoms HEENT: Reports: no symptoms Cardiovascular: Reports: no symptoms Respiratory: Reports: shortness of breath Gastrointestinal/Abdominal: Reports: no symptoms Genitourinary: Reports: no symptoms Neurologic/Psychiatric: Reports: no symptoms Subjective 65 YO M admitted with shortness of breath and respiratory failure. Tolerating nasal canula. Cover for Int Wilder-Dr Rader. Objective Last Vital Signs Date Time Temp Pulse Resp B/P Pulse Ox O2 Delivery O2 Flow Rate FiO2 08/13/16 15:58 98.4 115 20 114/83 95 Room Air 08/13/16 15:49 4.0 36 Laboratory Tests Test 08/13/16 04:35 08/13/16 04:55 Sodium Level 143 mEQ/L (135-145) Potassium Level 3.8 mEQ/L (3.4-4.9) Chloride Level 91 mEQ/L (98-107) L Carbon Dioxide Level 49 mEQ/L (20-30) *H Anion Gap 3 (5-15) L Blood Urea Nitrogen 7 mg/dL (7-23) Creatinine 0.6 mg/dL (0.7-1.2) L Estimat Glomerular Filtration Rate > 60 mL/min (>60) Glucose Level 100 mg/dL (74-106) # Calcium Level 9.2 mg/dL (8.6-10.2) Total Bilirubin 0.2 mg/dL (0.0-1.2) Aspartate Amino Transf (AST/SGOT) 14 U/L (5-40) Alanine Aminotransferase (ALT/SGPT) 24 U/L (3-41) Alkaline Phosphatase 65 U/L (40-129) Total Protein 6.0 g/dL (6.6-8.7) L Albumin 2.7 g/dL (3.5-5.2) L Globulin 3.3 g/dL Albumin/Globulin Ratio 0.8 (1.0-2.7) L White Blood Count 9.3 K/UL (4.8-10.8) Red Blood Count 3.68 M/UL (4.70-6.10) L Hemoglobin 9.9 G/DL (14.2-18.0) L Hematocrit 32.3 % (42.0-52.0) L Mean Corpuscular Volume 88 FL (80-99) Mean Corpuscular Hemoglobin 27.0 PG (27.0-31.0) Mean Corpuscular Hemoglobin Concent 30.8 G/DL (32.0-36.0) L Red Cell Distribution Width 18.5 % (11.6-14.8) H Platelet Count 258 K/UL (150-450) Mean Platelet Volume 7.0 FL (6.5-10.1) Neutrophils (%) (Auto) 71.4 % (45.0-75.0) Lymphocytes (%) (Auto) 17.7 % (20.0-45.0) L Monocytes (%) (Auto) 9.7 % (1.0-10.0) Eosinophils (%) (Auto) 0.2 % (0.0-3.0) Basophils (%) (Auto) 0.9 % (0.0-2.0) Intake and Output 08/12/16 08/13/16 19:00 07:00 Intake Total 430.0 ml 775.0 ml Output Total 250 ml 960 ml Balance 180.0 ml -185.0 ml Intake Oral 320 ml 720 ml IV Total 110.0 ml 55.0 ml Output Urine Total 250 ml 960 ml # Voids 2 Objective General Appearance: moderate distress, thin EENT: PERRL/EOMI, normal ENT inspection Neck: non-tender, normal alignment, supple Cardiovascular: normal peripheral pulses, normal rate, regular rhythm, no gallop/murmur, no JVD Respiratory/Chest: Nasal canula; crackles/rales, rhonchi - bilaterally, expiratory wheezing Abdomen: normal bowel sounds, non tender, soft, no organomegaly, no mass Extremities: normal range of motion, non-tender 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 Await CT chest. Cont nasal canula, IV solumedrol and zosyn (2) Acute respiratory failure Assessment & Plan: Cont nasal canula per pulmonary (3) Pneumonia Assessment & Plan: Right upper lobe. Cont zosyn. Status: progressing TADEO VERDIN Aug 13, 2016 17:59
[2016-08-13 20:00] VITALS: BP 114/63
--- NOTE | 2016-08-13 20:24 | Cardiology Report ---
APPROVED REPORT EKG Measurement Heart [id number] Sinus tachycardia Baseline artifact Borderline ECG
[2016-08-14] VITALS: BP 113/71
[2016-08-14] MEDS: DuoNeb 0.5-3(2.5)mg/3ml neb HHN PRN (03:46)
[2016-08-14 04:00] VITALS: BP 117/77
[2016-08-14] MEDS: Piperacillin/Tazobactam 3.375 GM in D5W 110 ML IVPB SCH ×3 (05:33→22:22)
[2016-08-14] MEDS: DuoNeb 0.5-3(2.5)mg/3ml neb HHN SCH ×5 (07:15→23:50)
[2016-08-14 07:34] LABS: BASOPHILS % (AUTO) 0.9 % (0.0-2.0); EOSINOPHILS % (AUTO) 1.7 % (0.0-3.0); LYMPHOCYTES % (AUTO) 20.4 % (20.0-45.0); MEAN CORPUSCULAR HEMOGLOBIN 27.9 PG (27.0-31.0); MEAN CORPUSCULAR HGB CONC 31.2 G/DL (32.0-36.0); MEAN CORPUSCULAR VOLUME 90 FL (80-99); MONOCYTES % (AUTO) 10.4 % (1.0-10.0); NEUTROPHILS % (AUTO) 66.5 % (45.0-75.0); PLATELET COUNT 266 K/UL (150-450); RED BLOOD COUNT 3.61 M/UL (4.70-6.10); RED CELL DISTRIBUTION WIDTH 18.4 % (11.6-14.8); WHITE BLOOD COUNT 9.6 K/UL (4.8-10.8)
[2016-08-14 07:46] LABS: CALCIUM 9.3 mg/dL (8.6-10.2); CHLORIDE 93 mEQ/L (98-107); CREATININE 0.7 mg/dL (0.7-1.2); GLOMERULAR FILTRATION RATE > 60 mL/min (>60); HEMOLYSIS 3; POTASSIUM 4.3 mEQ/L (3.4-4.9); SODIUM 142 mEQ/L (135-145)
[2016-08-14 07:55] LABS: ANION GAP 3 (5-15)
[2016-08-14 08:01] VITALS: BP 108/72
[2016-08-14 08:03] LABS: CARBON DIOXIDE 46 mEQ/L (20-30)
[2016-08-14] MEDS: Heparin 5000 units/ml inj SUBQ SCH ×2 (09:00→21:00)
[2016-08-14] MEDS: Theophylline ER 100mg ORAL SCH ×2 (09:46→21:00)
[2016-08-14] MEDS: Solu-MEDROL 40mg Inj IVP SCH (09:46)
[2016-08-14] MEDS: Vitamin A&D Oint 2oz Tube TOPIC SCH ×2 (09:47→21:00)
[2016-08-14 11:49] VITALS: BP 115/61
--- NOTE | 2016-08-14 11:53 | Internal Med Progress Note ---
Subjective Date of Service: Aug 14, 2016 Physician Name Tadeo Verdin Attending Physician Steve Rader MD Current Medications Medications (Trade) Dose Ordered Sig/Shraddha Route PRN Reason Start Time Stop Time Status Last Admin Dose Admin Albuterol/ Ipratropium (DuoNeb 0.5-3(2.5)mg/3ml) 3 ml Q4HRT HHN 08/14/16 07:00 08/19/16 06:59 08/14/16 11:03 Dextrose (Dextrose 50%) STAT PRN IV Hypoglycemia 08/13/16 12:00 09/12/16 11:59 Heparin Sodium (Porcine) (Heparin 5000 units/ml) 5,000 units EVERY 12 HOURS SUBQ 08/12/16 21:00 09/11/16 20:59 08/13/16 21:21 Lorazepam (Ativan 2mg/ml 1ml) 0.5 mg Q4H PRN IV For Anxiety 08/12/16 16:00 08/19/16 15:59 Methylprednisolone Sodium Succinate (Solu-MEDROL) 40 mg DAILY IVP 08/13/16 09:00 09/12/16 08:59 08/14/16 09:46 Morphine Sulfate (Morphine Sulfate) 2 mg Q4H PRN IVP severe pain 7-10 08/12/16 16:00 08/19/16 15:59 Nicotine (Nicoderm) 1 patch Q24H TDERMAL 08/12/16 14:00 09/11/16 13:59 08/13/16 13:26 Nitroglycerin (Ntg) 0.4 mg Q5M X 3 DOSES PRN SL Prn Chest Pain 08/12/16 14:00 09/11/16 13:59 Ondansetron HCl (Zofran) 4 mg Q6H PRN IVP Nausea & Vomiting 08/12/16 18:00 09/11/16 17:59 Piperacillin Sod/ Tazobactam Sod/ Dextrose (Zosyn/D5W) 110 ml @ 27.5 mls/hr EVERY 8 HOURS IVPB 08/12/16 14:00 08/19/16 13:59 08/14/16 05:33 Promethazine HCl/ Codeine (Phenergan with Codeine) 5 ml Q6H PRN ORAL cough 08/12/16 18:00 09/11/16 17:59 Temazepam (Restoril) 15 mg HSPRN PRN ORAL Insomnia 08/12/16 21:00 08/19/16 20:59 Theophylline (Dustin-Dur) 100 mg EVERY 12 HOURS ORAL 08/12/16 21:00 09/11/16 20:59 08/14/16 09:46 Vitamin A/Vitamin D (A & D Oint) 1 applic EVERY 12 HOURS TOPIC 08/12/16 21:00 09/11/16 20:59 08/14/16 09:47 Allergies: Coded Allergies: No Known Allergies (Unverified , 06/17/16) Subjective 65 YO M admitted with shortness of breath and respiratory failure. On BIPAP yesterday; Tolerating nasal canula today. Continues IV solumedrol. Cover for Int Med-Dr Rader. Objective Last Vital Signs Date Time Temp Pulse Resp B/P Pulse Ox O2 Delivery O2 Flow Rate FiO2 08/14/16 11:49 98.3 106 21 115/61 99 Room Air 08/14/16 11:02 4.0 36 Laboratory Tests Test 08/14/16 07:00 White Blood Count 9.6 K/UL (4.8-10.8) Red Blood Count 3.61 M/UL (4.70-6.10) L Hemoglobin 10.1 G/DL (14.2-18.0) L Hematocrit 32.4 % (42.0-52.0) L Mean Corpuscular Volume 90 FL (80-99) Mean Corpuscular Hemoglobin 27.9 PG (27.0-31.0) Mean Corpuscular Hemoglobin Concent 31.2 G/DL (32.0-36.0) L Red Cell Distribution Width 18.4 % (11.6-14.8) H Platelet Count 266 K/UL (150-450) Mean Platelet Volume 7.0 FL (6.5-10.1) Neutrophils (%) (Auto) 66.5 % (45.0-75.0) Lymphocytes (%) (Auto) 20.4 % (20.0-45.0) Monocytes (%) (Auto) 10.4 % (1.0-10.0) H Eosinophils (%) (Auto) 1.7 % (0.0-3.0) Basophils (%) (Auto) 0.9 % (0.0-2.0) Sodium Level 142 mEQ/L (135-145) Potassium Level 4.3 mEQ/L (3.4-4.9) Chloride Level 93 mEQ/L (98-107) L Carbon Dioxide Level 46 mEQ/L (20-30) *H Anion Gap 3 (5-15) L Blood Urea Nitrogen 8 mg/dL (7-23) Creatinine 0.7 mg/dL (0.7-1.2) Estimat Glomerular Filtration Rate > 60 mL/min (>60) Glucose Level 100 mg/dL (74-106) Calcium Level 9.3 mg/dL (8.6-10.2) Intake and Output 08/13/16 08/14/16 19:00 07:00 Intake Total 992.5 ml 497.5 ml Output Total 600 ml Balance 392.5 ml 497.5 ml Intake Oral 800 ml 360 ml IV Total 192.5 ml 137.5 ml Output Urine Total 600 ml # Voids 4 Objective General Appearance: moderate distress, thin EENT: PERRL/EOMI, normal ENT inspection Neck: non-tender, normal alignment, supple Cardiovascular: normal peripheral pulses, normal rate, regular rhythm, no gallop/murmur, no JVD Respiratory/Chest: Nasal canula; crackles/rales, rhonchi - bilaterally, expiratory wheezing Abdomen: normal bowel sounds, non tender, soft, no organomegaly, no mass Extremities: normal range of motion, non-tender 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 Await CT chest. Cont nasal canula, IV solumedrol and zosyn (2) Acute respiratory failure Assessment & Plan: Cont nasal canula per pulmonary (3) Pneumonia Assessment & Plan: Right upper lobe. Cont zosyn. Status: progressing TADEO VERDIN Aug 14, 2016 11:53
[2016-08-14 16:00] VITALS: BP 98/71
--- NOTE | 2016-08-14 16:17 | Diagnostic Imaging Report ---
APPROVED REPORT CPT Code: 23494 Present Symptoms Shortness of breath RIGHT LEG: Venous imaging reveals recanalized chronic thrombus in the superficial femoral vein. The remainder of the deep venous system is within normal limits. There is no evidence of thrombus in the common femoral, popliteal or calf veins. The greater saphenous vein is also within normal limits. Doppler indicates normal spontaneous flow within these segments. LEFT LEG: Venous imaging reveals a patent deep venous system. There is no evidence of thrombus within the femoral, popliteal or tibial segments. The greater saphenous vein is also within normal limits. Doppler indicates normal spontaneous flow within these segments. There is no evidence of acute deep vein thrombosis.
--- NOTE | 2016-08-14 16:32 | Pulmonology Progress Note ---
Assessment/Plan Problems: (1) COPD exacerbation (2) Bronchitis (3) Emphysema of lung (4) Severe anemia (5) Lung nodule Assessment/Plan taper off biapa taper steroids,change to prednisone sputum showing zoltan started difulucan becuase of Zoltan in sputum and since pt is on steroids CT scan reviewed, pulmonary nodule is smaller pt anemia with low reti count, probably c/w Bone marrow disease. stool OB pending dc planning Subjective ROS Limited/Unobtainable: No Constitutional: Reports: no symptoms HEENT: Repors: no symptoms Respiratory: Reports: no symptoms Cardiovascular: Reports: no symptoms Allergies: Coded Allergies: No Known Allergies (Unverified , 06/17/16) Objective Last 24 Hour Vital Signs Date Time Temp Pulse Resp B/P Pulse Ox O2 Delivery O2 Flow Rate FiO2 08/14/16 14:40 108 16 100 Nasal Cannula 4.0 36 08/14/16 14:40 112 16 100 Nasal Cannula 4.0 36 08/14/16 14:40 36 08/14/16 12:00 4.0 08/14/16 11:49 98.3 106 21 115/61 99 Room Air 08/14/16 11:02 112 16 98 Nasal Cannula 4.0 36 08/14/16 11:02 36 08/14/16 11:02 111 16 99 Nasal Cannula 4.0 36 08/14/16 08:01 98.1 113 20 108/72 97 Nasal Cannula 2.0 08/14/16 08:00 4.0 08/14/16 07:15 109 16 Nasal Cannula 4.0 36 08/14/16 07:15 110 16 99 Nasal Cannula 4.0 36 08/14/16 07:15 36 08/14/16 07:15 109 16 99 Nasal Cannula 4.0 36 08/14/16 04:00 4.0 08/14/16 04:00 97.3 107 18 117/77 100 Nasal Cannula 4.0 08/14/16 03:47 110 16 99 Nasal Cannula 4.0 36 08/14/16 03:47 36 08/14/16 00:00 4.0 08/14/16 00:00 98.4 112 20 113/71 100 Nasal Cannula 4.0 08/13/16 23:29 36 08/13/16 23:29 11 16 99 Nasal Cannula 4.0 36 08/13/16 23:00 101 18 99 Nasal Cannula 4.0 36 08/13/16 20:00 97.7 93 20 114/63 100 Room Air 08/13/16 20:00 4.0 08/13/16 19:49 111 16 Nasal Cannula 4.0 36 Intake and Output 08/13/16 08/14/16 19:00 07:00 Intake Total 992.5 ml 497.5 ml Output Total 600 ml Balance 392.5 ml 497.5 ml Intake Oral 800 ml 360 ml IV Total 192.5 ml 137.5 ml Output Urine Total 600 ml # Voids 4 General Appearance: cachetic HEENT: normocephalic, atraumatic Respiratory/Chest: chest wall non-tender, lungs clear Cardiovascular: normal peripheral pulses, normal rate Abdomen: normal bowel sounds, soft, non tender Extremities: no cyanosis 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 Laboratory Tests 08/14/16 07:00: White Blood Count 9.6, Red Blood Count 3.61L, Hemoglobin 10.1L, Hematocrit 32.4L , Mean Corpuscular Volume 90, Mean Corpuscular Hemoglobin 27.9, Mean Corpuscular Hemoglobin Concent 31.2L, Red Cell Distribution Width 18.4H, Platelet Count 266, Mean Platelet Volume 7.0, Neutrophils (%) (Auto) 66.5, Lymphocytes (%) (Auto) 20.4, Monocytes (%) (Auto) 10.4H, Eosinophils (%) (Auto) 1.7, Basophils (%) (Auto) 0.9, Sodium Level 142, Potassium Level 4.3, Chloride Level 93L, Carbon Dioxide Level 46*H, Anion Gap 3L, Blood Urea Nitrogen 8, Creatinine 0.7, Estimat Glomerular Filtration Rate > 60, Glucose Level 100, Calcium Level 9.3 Current Medications Medications (Trade) Dose Ordered Sig/Shraddha Route PRN Reason Start Time Stop Time Status Last Admin Dose Admin Albuterol/ Ipratropium (DuoNeb 0.5-3(2.5)mg/3ml) 3 ml Q4HRT HHN 08/14/16 07:00 08/19/16 06:59 08/14/16 14:40 Dextrose (Dextrose 50%) STAT PRN IV Hypoglycemia 08/13/16 12:00 09/12/16 11:59 Heparin Sodium (Porcine) (Heparin 5000 units/ml) 5,000 units EVERY 12 HOURS SUBQ 08/12/16 21:00 09/11/16 20:59 08/13/16 21:21 Lorazepam (Ativan 2mg/ml 1ml) 0.5 mg Q4H PRN IV For Anxiety 08/12/16 16:00 08/19/16 15:59 Methylprednisolone Sodium Succinate (Solu-MEDROL) 40 mg DAILY IVP 08/13/16 09:00 09/12/16 08:59 08/14/16 09:46 Morphine Sulfate (Morphine Sulfate) 2 mg Q4H PRN IVP severe pain 7-10 08/12/16 16:00 08/19/16 15:59 Nicotine (Nicoderm) 1 patch Q24H TDERMAL 08/12/16 14:00 09/11/16 13:59 08/14/16 14:07 Nitroglycerin (Ntg) 0.4 mg Q5M X 3 DOSES PRN SL Prn Chest Pain 08/12/16 14:00 09/11/16 13:59 Ondansetron HCl (Zofran) 4 mg Q6H PRN IVP Nausea & Vomiting 08/12/16 18:00 09/11/16 17:59 Piperacillin Sod/ Tazobactam Sod/ Dextrose (Zosyn/D5W) 110 ml @ 27.5 mls/hr EVERY 8 HOURS IVPB 08/12/16 14:00 08/19/16 13:59 08/14/16 14:07 Promethazine HCl/ Codeine (Phenergan with Codeine) 5 ml Q6H PRN ORAL cough 08/12/16 18:00 09/11/16 17:59 Temazepam (Restoril) 15 mg HSPRN PRN ORAL Insomnia 08/12/16 21:00 08/19/16 20:59 Theophylline (Dustin-Dur) 100 mg EVERY 12 HOURS ORAL 08/12/16 21:00 09/11/16 20:59 08/14/16 09:46 Vitamin A/Vitamin D (A & D Oint) 1 applic EVERY 12 HOURS TOPIC 08/12/16 21:00 09/11/16 20:59 08/14/16 09:47 REN WRIGHT Aug 14, 2016 16:32
[2016-08-14 19:00] VITALS: BP 107/84
[2016-08-15] VITALS: BP 102/62
[2016-08-15] MEDS: DuoNeb 0.5-3(2.5)mg/3ml neb HHN SCH ×4 (03:08→15:21)
[2016-08-15 04:00] VITALS: BP 97/75
[2016-08-15] MEDS: Piperacillin/Tazobactam 3.375 GM in D5W 110 ML IVPB SCH ×2 (05:16→14:00)
[2016-08-15 07:27] LABS: BASOPHILS % (AUTO) 0.4 % (0.0-2.0); LYMPHOCYTES % (AUTO) 22.4 % (20.0-45.0); MEAN CORPUSCULAR HEMOGLOBIN 27.1 PG (27.0-31.0); MEAN CORPUSCULAR HGB CONC 30.2 G/DL (32.0-36.0); MEAN CORPUSCULAR VOLUME 90 FL (80-99); MONOCYTES % (AUTO) 10.1 % (1.0-10.0); NEUTROPHILS % (AUTO) 64.1 % (45.0-75.0); PLATELET COUNT 252 K/UL (150-450); RED BLOOD COUNT 3.54 M/UL (4.70-6.10); RED CELL DISTRIBUTION WIDTH 18.3 % (11.6-14.8)
[2016-08-15 07:29] LABS: CHLORIDE 95 mEQ/L (98-107); CREATININE 0.7 mg/dL (0.7-1.2); GLOMERULAR FILTRATION RATE > 60 mL/min (>60); HEMOLYSIS 0; POTASSIUM 4.1 mEQ/L (3.4-4.9); SODIUM 143 mEQ/L (135-145)
[2016-08-15 07:38] LABS: ANION GAP 5 (5-15)
[2016-08-15 07:49] LABS: CARBON DIOXIDE 43 mEQ/L (20-30)
[2016-08-15 08:15] VITALS: BP 102/66
[2016-08-15] MEDS ORDERED: PredniSONE 20mg tab ORAL SCH (09:00)
[2016-08-15] MEDS: Theophylline ER 100mg ORAL SCH (09:13)
[2016-08-15] MEDS: Vitamin A&D Oint 2oz Tube TOPIC SCH (09:13)
[2016-08-15] MEDS: Heparin 5000 units/ml inj SUBQ SCH (09:14)
[2016-08-15 11:57] VITALS: BP 104/62
[2016-08-15] MEDS ORDERED: PREDNISONE20 MG ORAL (15:18)
--- NOTE | 2016-08-15 15:19 | Discharge Summary ---
Discharge Summary Hospital Course Date of Admission Aug 09, 2016 at 07:50 Date of Discharge Admitting Diagnosis copd exacebration HPI Angel DxionJr is a 65 year old male who was admitted on Aug 09, 2016 at 07: 50 for Chronic Obstructive Pulmonary Disease EXSCEBRATION Hospital Course The patient was seen and examined at bedside and all new and available data was reviewed in the patients chart. Last 24 Hour Vital Signs Date Time Temp Pulse Resp B/P Pulse Ox O2 Delivery O2 Flow Rate FiO2 08/15/16 12:00 4.0 08/15/16 11:57 98.7 107 22 104/62 97 Nasal Cannula 2.0 08/15/16 11:49 98 18 99 Nasal Cannula 4.0 36 08/15/16 11:41 36 08/15/16 11:41 102 18 100 Nasal Cannula 4.0 36 08/15/16 08:15 97.5 91 20 102/66 96 Nasal Cannula 2.0 08/15/16 08:00 4.0 08/15/16 08:00 100 18 99 Nasal Cannula 4.0 36 08/15/16 07:50 98 18 Nasal Cannula 4.0 36 08/15/16 07:50 36 08/15/16 07:50 98 18 100 Nasal Cannula 4.0 36 08/15/16 04:00 97.7 102 20 97/75 10 Nasal Cannula 4.0 08/15/16 04:00 4.0 08/15/16 03:15 109 18 99 Nasal Cannula 4.0 36 08/15/16 03:08 36 08/15/16 03:08 106 18 98 Nasal Cannula 4.0 36 08/15/16 00:00 98.4 104 20 102/62 98 Nasal Cannula 4.0 08/15/16 00:00 4.0 08/14/16 23:55 101 18 100 Nasal Cannula 4.0 36 08/14/16 23:52 36 08/14/16 23:51 102 18 98 Nasal Cannula 4.0 36 08/14/16 20:00 4.0 08/14/16 19:50 115 18 100 Nasal Cannula 4.0 36 08/14/16 19:40 117 18 98 Nasal Cannula 4.0 36 08/14/16 19:40 117 18 Nasal Cannula 4.0 36 08/14/16 19:40 36 08/14/16 19:00 96.4 85 18 107/84 100 Room Air 08/14/16 16:00 4.0 08/14/16 16:00 96.0 122 18 98/71 Room Air GENERAL: The patient is a well-developed, no apparent distress. HEENT: Eyes: Pupils are equal and responsive to light and accommodation. Extraocular movements are intact. NECK: Supple without lymphadenopathy. CHEST: Lungs are clear to auscultation bilaterally. Decreased breath sounds in the bilateral bases. CARDIOVASCULAR: Regular rhythm and rate. S1 and S2 are normal without murmurs ABDOMEN: Soft, nontender, and nondistended. Positive bowel sounds. RECTAL: Refused. GENITALIA: Refused. EXTREMITIES: No clubbing, cyanosis, or edema. NEUROLOGIC: Cranial nerves II through XII grossly intact without focal deficits. Motor strength is 5/5 bilaterally. Plan: DC to SNF today. (Patient was seen earlier today. Signature timestamp does not reflect patient encounter time) Steve Rader MD Discharge Discharge Disposition Patient was discharged to Discharge Diagnoses: Steve Rader MD Aug 15, 2016 15:19
[2016-08-15 16:00] VITALS: BP 100/64
[2016-08-15] MEDS ORDERED: Tubing IV Secondary IV ONE (20:22)
[2016-08-15] MEDS ORDERED: NS 550ML IV ONE (20:22)
--- NOTE | 2016-08-15 23:17 | Pulmonology Progress Note ---
Assessment/Plan Problems: (1) COPD exacerbation (2) Bronchitis (3) Emphysema of lung (4) Severe anemia (5) Lung nodule Assessment/Plan taper off biapa taper steroids,change to prednisone sputum showing love started difulucan becuase of Love in sputum and since pt is on steroids CT scan reviewed, pulmonary nodule is smaller pt anemia with low reti count, probably c/w Bone marrow disease. stool OB pending dc planning Subjective ROS Limited/Unobtainable: No Respiratory: Reports: dyspnea at rest, productive cough, shortness of breath, sputum Allergies: Coded Allergies: No Known Allergies (Unverified , 06/17/16) Objective Last 24 Hour Vital Signs Date Time Temp Pulse Resp B/P Pulse Ox O2 Delivery O2 Flow Rate FiO2 08/15/16 16:00 98.1 114 20 100/64 99 Nasal Cannula 5.0 08/15/16 16:00 4.0 08/15/16 15:31 100 20 99 Nasal Cannula 4.0 36 08/15/16 15:21 96 18 98 Nasal Cannula 4.0 36 08/15/16 15:21 36 08/15/16 12:00 4.0 08/15/16 11:57 98.7 107 22 104/62 97 Nasal Cannula 2.0 08/15/16 11:49 98 18 99 Nasal Cannula 4.0 36 08/15/16 11:41 36 08/15/16 11:41 102 18 100 Nasal Cannula 4.0 36 08/15/16 08:15 97.5 91 20 102/66 96 Nasal Cannula 2.0 08/15/16 08:00 4.0 08/15/16 08:00 100 18 99 Nasal Cannula 4.0 36 08/15/16 07:50 98 18 Nasal Cannula 4.0 36 08/15/16 07:50 36 08/15/16 07:50 98 18 100 Nasal Cannula 4.0 36 08/15/16 04:00 97.7 102 20 97/75 10 Nasal Cannula 4.0 08/15/16 04:00 4.0 08/15/16 03:15 109 18 99 Nasal Cannula 4.0 36 08/15/16 03:08 36 08/15/16 03:08 106 18 98 Nasal Cannula 4.0 36 08/15/16 00:00 98.4 104 20 102/62 98 Nasal Cannula 4.0 08/15/16 00:00 4.0 08/14/16 23:55 101 18 100 Nasal Cannula 4.0 36 08/14/16 23:52 36 08/14/16 23:51 102 18 98 Nasal Cannula 4.0 36 Intake and Output 08/14/16 08/15/16 19:00 07:00 Intake Total 930.0 ml 497.5 ml Output Total 1000 ml 300 ml Balance -70.0 ml 197.5 ml Intake Oral 720 ml 360 ml IV Total 210.0 ml 137.5 ml Output Urine Total 1000 ml 300 ml # Voids 5 6 General Appearance: no acute distress HEENT: normocephalic, atraumatic, PERRL Respiratory/Chest: chest wall non-tender, decreased breath sounds, accessory muscle use, crackles/rales, rhonchi, expiratory wheezing Cardiovascular: normal peripheral pulses, normal rate, regular rhythm, no JVD Abdomen: normal bowel sounds, soft, non tender, no organomegaly Genitourinary: normal external genitalia Extremities: no cyanosis Skin: rash, lesions 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, no motor/sensory deficits Laboratory Tests 08/15/16 05:35: White Blood Count 8.0, Red Blood Count 3.54L, Hemoglobin 9.6L, Hematocrit 31.7L , Mean Corpuscular Volume 90, Mean Corpuscular Hemoglobin 27.1, Mean Corpuscular Hemoglobin Concent 30.2L, Red Cell Distribution Width 18.3H, Platelet Count 252, Mean Platelet Volume 7.0, Neutrophils (%) (Auto) 64.1, Lymphocytes (%) (Auto) 22.4, Monocytes (%) (Auto) 10.1H, Eosinophils (%) (Auto) 3.0, Basophils (%) (Auto) 0.4, Sodium Level 143, Potassium Level 4.1, Chloride Level 95L, Carbon Dioxide Level 43*H, Anion Gap 5, Blood Urea Nitrogen 9, Creatinine 0.7, Estimat Glomerular Filtration Rate > 60, Glucose Level 83, Calcium Level 9.0 REN WRIGHT Aug 15, 2016 23:17
== END 2016-08-15 20:23 | DRG 190 ==
LOC: EDBD 06:50 → EMR 07:20 → 2W 07:50 → EDBEDREQ 08:28 → 4E 08-12 14:00
PROC: 5A09457 Assistance with Respiratory Ventilation, 24-96 Consecutive Hours, Continuous Positive Airway Pressure (ICD-10-PCS; principal; 2016-08-09)
DX: J44.1 Chronic obstructive pulmonary disease with (acute) exacerbation (principal); J96.02 Acute respiratory failure with hypercapnia; J96.01 Acute respiratory failure with hypoxia; B37.89 Other sites of candidiasis; R91.1 Solitary pulmonary nodule; Z86.718 Personal history of other venous thrombosis and embolism; D64.9 Anemia, unspecified; Z87.891 Personal history of nicotine dependence; R60.0 Localized edema; J40 Bronchitis, not specified as acute or chronic
CPT/HCPCS: 36415; 36600; 71010; 71260; 80048; 80053; 82378; 82550; 82553; 82607; 82728; 82746; 82803; 82962; 83540; 83550; 83615; 83880; 84484; 85007; 85025; 85044; 85060; 85610; 85651; 85730; 86710; 87040; 87070; 87081; 87205; 93005; 93970; 94640; 94660; 94664; J1815; J7620

== ENCOUNTER 2016-09-20 14:51 | Inpatient (IN) | payer MEDICARE, OTHER, MEDICAID ==
[2016-09-20] VITALS (13 sets, daily range): BP systolic 98–159; BP diastolic 67–100
[~2016-09-20] VITALS: Ht 188 cm; Wt 57.2 kg
[~2016-09-20 14:51] MED LIST changes: +ADVAIR 250-501 EACH INH; +PREDNISONE20 MG ORAL
[2016-09-20] MEDS ORDERED: Solu-MEDROL 125mg Inj IVP ONE (15:15)
[2016-09-20] MEDS ORDERED: Azithromycin 500 MG in NS 275 ML IV ONE (15:15)
[2016-09-20 15:27] LABS: BASOPHILS % (AUTO) 2.3 % (0.0-2.0); LYMPHOCYTES % (AUTO) 11.7 % (20.0-45.0); MEAN CORPUSCULAR HEMOGLOBIN 28.2 PG (27.0-31.0); MEAN CORPUSCULAR HGB CONC 30.8 G/DL (32.0-36.0); MEAN CORPUSCULAR VOLUME 92 FL (80-99); MEAN PLATELET VOLUME 5.9 FL (6.5-10.1); MONOCYTES % (AUTO) 6.9 % (1.0-10.0); NEUTROPHILS % (AUTO) 79.2 % (45.0-75.0); PLATELET COUNT 446 K/UL (150-450); RED BLOOD COUNT 4.27 M/UL (4.70-6.10); RED CELL DISTRIBUTION WIDTH 14.8 % (11.6-14.8); WHITE BLOOD COUNT 16.3 K/UL (4.8-10.8)
[2016-09-20] MEDS: Ipratropium 0.02% Inh Soln 2.5ml UD HHN SCH ×3 (15:28→15:45)
[2016-09-20] MEDS: Albuterol ud Inhalation HHN SCH ×3 (15:28→15:45)
[2016-09-20] MEDS ORDERED: Levalbuterol Inh UD 1.25mg/0.5ml HHN ONE (15:30)
[2016-09-20] MEDS ORDERED: Terbutaline 1mg/ml Inj SUBQ ONE (15:30)
[2016-09-20] MEDS ORDERED: Racemic EPINEPHrine 2.25% 0.5ml HHN ONE (15:30)
[2016-09-20] MEDS ORDERED: Azithromycin Inj IV ONE (15:35)
--- NOTE | 2016-09-20 15:35 | Emergency Room Report ---
History of Present Illness General Chief Complaint: Dyspnea/Respdistress Source: Medical Record, EMS Present Illness HPI 66 YOM BIBEMS from SNF for hypoxia 80% and SOB. Known COPD. EMS stated SNF denied fever/chills, cough. Was admitted last month also for COPD exacerbation. Improved on Bipap - refused intubation at that time. HPI otherwise limited d/t patient's distress. Allergies: Coded Allergies: No Known Allergies (Unverified , 06/17/16) Patient History Past Medical History: COPD Past Surgical History: none Pertinent Family History: none Social History: Denies: alcohol use, drug use, smoking Immunizations: UTD Reviewed Nursing Documentation: PMH: Agreed, PSxH: Agreed Nursing Documentation-PMH Hx Hypertension: Yes Hx COPD: Yes Hx Diabetes: Yes Hx Cancer: No Hx Gastrointestinal Problems: No Hx Dialysis: No Hx Neurological Problems: Yes - ENCEPHALOPATHY Hx Cerebrovascular Accident: No Hx Seizures: No Review of Systems All Other Systems: limited - Patient in acute distress Physical Exam Vital Signs Date Time Temp Pulse Resp B/P Pulse Ox O2 Delivery O2 Flow Rate FiO2 09/20/16 14:47 99.1 128 24 13/86 96 Non-Rebreather 09/20/16 15:04 100 Sp02 EP Interpretation: reviewed, abnormal General Appearance: normal inspection, alert, GCS 15, non-toxic, moderate distress, cachetic Head: normocephalic, atraumatic Eyes: bilateral eye EOMI, bilateral eye PERRL ENT: normal ENT inspection, hearing grossly normal, normal voice Neck: normal inspection, full range of motion, supple, no meningismus, no bony tend Respiratory: normal inspection, no wheezing, decreased breath sounds, accessory muscle use, wheezing Cardiovascular #1: no edema, tachycardia Gastrointestinal: normal inspection, normal bowel sounds, non tender, soft, no guarding, no hernia Genitourinary: no CVA tenderness Musculoskeletal: normal inspection, back normal, normal range of motion, Chantel' s Sign negative Neurologic: normal inspection, alert, responsive, 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 Known COPD/ DDx includes COPD exacerbation, ACS, PNA PMhx includes COPD exacerbatios Presents acute SOB warm, hypoxic c/o intermittent 2 days of progressive SOB Patient immediately placed on potline monitor with rhytm strip and STAT EKG was obtained which showed no acute ischemia, sinus tachycardia EMS states O2 sat 80% on RA at [facility] Initial management indicated: BIPAP, CBC, CMP, troponin, BNP, CXR, nebs, steroids, empiric Abx, IV Mg, racemic Epi, Highly suspected: COPD exacerbation, +/- PNA Possible interventions - BIPAP, additional Abx. CC time included frequent re-exams, interpretation of labs, imaging, adjustment of Abx Critical care time of 45 minutes does not include reportable procedures. Intubation Intubation : Consent: Emergent Intubation Method: orotracheal Tube Size (cm): 7.5 Medications: Etomidate, Rocuronium Breath Sounds after Intubation: equal Intubation Complications: no complications Post Intubation Xray: Yes Attempts: One Patient Tolerated: Well Complications: None Medical Decision Making Medicare Attestation I Vianney Ying MD hereby attest that the medical record entry for date of service, 06/10/16 accurately reflects signatures/notations that I made in my capacity as MD when I treated/diagnosed the above listed Medicare beneficiary. I attest that this information is true, accurate and complete to the best of my knowledge. I understand that any falsification, omission, or concealment of material fact may subject me to administrative, civil, or criminal liability. This patient warrants hospital admission for extreme of age and has a condition that cannot be treated as outpatient. Diagnostic Impression: Primary Impression: COPD exacerbation Additional Impression: Respiratory failure Qualified Codes: J96.01 - Acute respiratory failure with hypoxia; J96.02 - Acute respiratory failure with hypercapnia ER Course labs: Lueks 16K. H&H stable Assessment COPD exac/? PNA Initial PCO2 was 140, ph 7.1. Improved only to 120 with pH still 7.1 after trial of bipap, nebs, meds. Was notably having worsened mental status. Was intubated in ED. Tube in good position on CXR. No obvious PNA on CXR. Given Rocephin and Azithro Blood Cx pending EKG Diagnostic Results Rate: tachycardiac Rhythm: NSR ST Segments: no acute changes ASA given to the pt in ED: No Rhythm Strip Diag. Results EP Interpretation: yes Rate: 136 Rhythm: NSR, no PVC's, no ectopy Chest X-Ray Diagnostic Results EP Interpretation: Yes Findings: no consolidation, no effusion, no pneumothorax, no acute cardiopulmonary disease Number of Views: 1 Last Vital Signs Date Time Temp Pulse Resp B/P Pulse Ox O2 Delivery O2 Flow Rate FiO2 09/20/16 15:04 96.6 135 25 159/98 100 Bi-pap 100 Status: improved Disposition: ADMITTED INPATIENT Condition: Critical VIANNEY YING M.D. Sep 20, 2016 15:35
[2016-09-20] MEDS ORDERED: cefTRIAXone 1 GM in NS 55 ML IVPB ONE (15:45)
[2016-09-20 15:58] LABS: ALANINE AMINOTRANSFERASE 12 U/L (3-41); ANION GAP 10 (5-15); ASPARTATE AMINO TRANSFERASE 12 U/L (5-40); CALCIUM 10.1 mg/dL (8.6-10.2); CARBON DIOXIDE 39 mEQ/L (20-30); CHLORIDE 92 mEQ/L (98-107); CREATININE 0.9 mg/dL (0.7-1.2); GLOMERULAR FILTRATION RATE > 60 mL/min (>60); HEMOLYSIS 1; POTASSIUM 4.2 mEQ/L (3.4-4.9); SODIUM 141 mEQ/L (135-145); TOTAL PROTEIN 7.8 g/dL (6.6-8.7); TROPONIN I < 0.30 ng/mL (<=0.30)
[2016-09-20 16:09] LABS: CKMB 2.6 ng/mL (< 6.7)
[2016-09-20] MEDS ORDERED: Etomidate 40mg/20ml Inj IV ONE (16:30)
[2016-09-20] MEDS ORDERED: Zemuron 50mg/5ml Inj IV ONE (16:30)
--- NOTE | 2016-09-20 16:37 | Diagnostic Imaging Report ---
Indication: SOB Technique: One view of the chest Comparison: 08/13/2016 Findings: Lungs are hyperinflated. No infiltrates, effusions or congestion. Normal heart size. Aorta is elongated and ectatic. No significant change Impression: No acute process Hyperinflation, consistent with COPD
[2016-09-20 17:42] LABS: ABG BASE EXCESS 15.8; ABG PCO2 145.9 mmHg (35.0-45.0)
[2016-09-20 17:43] LABS: ABG ALLEN TEST POSITIVE
[2016-09-20 18:01] LABS: ABG PCO2 123.3 mmHg (35.0-45.0)
[2016-09-20 18:02] LABS: ABG ALLEN TEST POSITIVE; ABG BASE EXCESS 9.7
[2016-09-20] MEDS ORDERED: Miralax 17gm pkt ORAL PRN (18:30)
[2016-09-20] MEDS ORDERED: DuoNeb 0.5-3(2.5)mg/3ml neb HHN PRN (18:30)
[2016-09-20] MEDS: LORazepam Inj 2mg/ml 1ml IV PRN (20:46)
[2016-09-20] MEDS: Heparin 5000 units/ml inj SUBQ SCH (20:55)
[2016-09-20] MEDS: Ertapenem 1 GM in NS 55 ML IV SCH (21:39)
[2016-09-20] MEDS ORDERED: Vancomycin 1 GM in D5W 275 ML IVPB SCH (22:00)
[2016-09-21] VITALS (25 sets, daily range): BP systolic 90–155; BP diastolic 37–91
[2016-09-21] MEDS ORDERED: Amikacin 1,000 MG in NS 110 ML IV SCH ×2
[2016-09-21] MEDS: LORazepam Inj 2mg/ml 1ml IV PRN ×4 (05:24→16:34)
[2016-09-21 07:23] LABS: ALANINE AMINOTRANSFERASE 48 U/L (3-41); ANION GAP 8 (5-15); ASPARTATE AMINO TRANSFERASE 40 U/L (5-40); BILIRUBIN,DIRECT 0.1 mg/dL (0.1-0.3); CALCIUM 8.9 mg/dL (8.6-10.2); CARBON DIOXIDE 35 mEQ/L (20-30); CHLORIDE 98 mEQ/L (98-107); CREATININE 0.7 mg/dL (0.7-1.2); GLOMERULAR FILTRATION RATE > 60 mL/min (>60); HEMOLYSIS 1; POTASSIUM 4.2 mEQ/L (3.4-4.9); SODIUM 141 mEQ/L (135-145); TOTAL PROTEIN 6.1 g/dL (6.6-8.7)
[2016-09-21 07:32] LABS: BASOPHILS % (AUTO) 0.3 % (0.0-2.0); LYMPHOCYTES % (AUTO) 6.8 % (20.0-45.0); MEAN CORPUSCULAR HEMOGLOBIN 28.3 PG (27.0-31.0); MEAN CORPUSCULAR HGB CONC 31.1 G/DL (32.0-36.0); MEAN CORPUSCULAR VOLUME 91 FL (80-99); MEAN PLATELET VOLUME 6.8 FL (6.5-10.1); MONOCYTES % (AUTO) 9.8 % (1.0-10.0); NEUTROPHILS % (AUTO) 83.1 % (45.0-75.0); PLATELET COUNT 366 K/UL (150-450); RED BLOOD COUNT 3.25 M/UL (4.70-6.10); WHITE BLOOD COUNT 11.5 K/UL (4.8-10.8)
--- NOTE | 2016-09-21 08:41 | Consultation ---
History of Present Illness General Date patient seen: Sep 21, 2016 Time patient seen: 07:55 Chief Complaint: Dyspnea/Respdistress Referring physician: dr Rader Reason for Consultation: respiratory failure Present Illness HPI 66 y/old male with hx of COPD, HTN, DM, encephalopathy presented with acute SOB warm, hypoxic c/o intermittent 2 days of progressive SOB Patient immediately placed on vehicle monitor technician with rhythm strip and STAT EKG was obtained which showed no acute ischemia, sinus tachycardia EMS states O2 sat 80% on RA at [facility] Initial management in ED placement on BiPAP ABG on BiPAP with acute respiratory acidosis and severe hypercapnia, patient required emergent oral intubation Lab work revealed leukocytosis, negative troponin , stable lytes and renal parameters, no anemia initially, CXR no acute process, but + hyperinflation c/w COPD patient received neb treatment, steroid, empiric abx, IV Mg, racemic Epi and transferred to ICU fro further management Allergies: Coded Allergies: No Known Allergies (Unverified , 06/17/16) Medication History Scheduled Benzonatate* (Benzonatate*), 100 MG ORAL THREE TIMES A DAY, (Reported) Fluticasone/Salmeterol (Advair 250-50 Diskus), 1 PUFF INH BID, (Reported) Folic Acid* (Folic Acid*), 1 MG ORAL DAILY, (Reported) Ipratropium Mercedes 0.5MG/2.5ML (Ipratropium Mercedes 0.5MG/2.5ML), 500 MCG HHN Q6HRT Omeprazole (Omeprazole), 20 MG ORAL DAILY, (Reported) Prednisone* (Prednisone*), 20 MG ORAL DAILY Roflumilast (Daliresp), 500 MCG PO DAILY, (Reported) Scheduled PRN Acetaminophen (Acetaminophen), 650 MG RECTAL Q4H PRN Miscellaneous Medications Guaifenesin (Guaifenesin ER), 200 MG ORAL, (Reported) Patient History Healthcare decision maker amelie nadiya, ex- Resuscitation status Full Code Advanced Directive on File No Past Medical/Surgical History Past Medical/Surgical History: (1) Acute respiratory failure (2) ENMA (iron deficiency anemia) (3) DVT (deep venous thrombosis) (4) Altered mental status (5) Lung nodule (6) Bronchitis (7) Emphysema of lung (8) Encephalopathy acute (9) COPD exacerbation (10) Respiratory failure (11) Severe anemia Review of Systems ROS Narrative unable to obtain 2 to patient ALOC Physical Exam General Appearance: no apparent distress, other - orally intubated, sedated HEENT: normocephalic, atraumatic, anicteric Neck: supple Respiratory/Chest: decreased breath sounds Cardiovascular/Chest: regular rhythm, no JVD, tachycardia Abdomen: normal bowel sounds, non tender, soft Extremities: normal capillary refill Neurologic: abnormal gait, other - sedated Musculoskeletal: normal muscle bulk Last 24 Hour Vital Signs Date Time Temp Pulse Resp B/P Pulse Ox O2 Delivery O2 Flow Rate FiO2 09/21/16 08:00 97.9 125 20 104/72 94 Mechanical Ventilator 30 09/21/16 07:00 119 16 90/63 99 Mechanical Ventilator 30 09/21/16 06:43 119 16 Mechanical Ventilator 30 09/21/16 06:43 123 16 30 09/21/16 06:00 126 22 131/91 100 Mechanical Ventilator 40 09/21/16 05:00 130 20 134/40 100 Mechanical Ventilator 40 09/21/16 04:44 129 16 40 09/21/16 04:00 124 09/21/16 04:00 40 09/21/16 04:00 97.6 125 18 120/64 100 Mechanical Ventilator 40 09/21/16 03:17 115 16 40 09/21/16 03:01 116 20 131/91 100 Mechanical Ventilator 40 09/21/16 03:00 110 20 90/77 100 Mechanical Ventilator 40 09/21/16 02:00 110 20 131/91 100 Mechanical Ventilator 40 09/21/16 01:08 110 16 40 09/21/16 01:00 110 20 99/69 100 Mechanical Ventilator 40 09/21/16 00:00 98.5 113 20 103/86 100 Mechanical Ventilator 40 09/21/16 00:00 108 09/20/16 23:10 106 16 40 09/20/16 23:00 108 16 104/80 100 Mechanical Ventilator 40 09/20/16 22:00 112 16 101/82 100 Mechanical Ventilator 40 09/20/16 21:05 122 16 40 09/20/16 21:00 122 16 129/97 100 Mechanical Ventilator 40 09/20/16 21:00 129/97 09/20/16 20:09 132 09/20/16 20:04 40 09/20/16 20:00 97.8 127 25 128/88 100 Mechanical Ventilator 40 09/20/16 19:46 97.6 114 21 136/88 100 Mechanical Ventilator 40 09/20/16 19:44 97.6 114 21 136/88 100 Mechanical Ventilator 40 09/20/16 19:20 97.9 115 16 102/67 100 Mechanical Ventilator 40 09/20/16 19:15 124 16 40 09/20/16 19:11 18 09/20/16 18:59 98.2 140 20 119/83 100 Mechanical Ventilator 40 09/20/16 18:58 20 09/20/16 18:19 97.9 130 16 108/75 100 Mechanical Ventilator 40 09/20/16 18:12 22 09/20/16 17:36 97.2 140 16 156/100 100 Mechanical Ventilator 40 09/20/16 17:30 134 16 40 09/20/16 17:12 145 27 Bi-pap 100 09/20/16 16:26 97.6 137 30 98/74 100 Mechanical Ventilator 40 09/20/16 16:26 40 09/20/16 16:26 143 24 40 09/20/16 16:23 97.6 132 18 111/81 100 Bi-pap 100 09/20/16 15:57 97.6 130 30 105/73 100 Bi-pap 100 09/20/16 15:34 145 24 100 Bi-pap 100 09/20/16 15:26 100 09/20/16 15:20 137 24 100 Facial 100 09/20/16 15:06 135 27 100 Bi-pap 100 09/20/16 15:04 96.6 135 25 159/98 100 Bi-pap 100 09/20/16 15:04 100 09/20/16 15:02 132 22 Bi-pap 100 09/20/16 15:00 135 27 100 Facial 100 09/20/16 14:47 99.1 128 24 13/86 96 Non-Rebreather Intake and Output 09/20/16 09/21/16 19:00 07:00 Intake Total 2000 ml 1444 ml Output Total 30 ml Balance 2000 ml 1414 ml Intake Oral 0 ml IV Total 1000 ml 1444 ml Other 1000 ml Output Urine Total 30 ml # Voids 465 Laboratory Tests Test 09/20/16 14:50 09/20/16 15:14 09/20/16 17:57 09/21/16 01:15 White Blood Count 16.3 K/UL (4.8-10.8) H Red Blood Count 4.27 M/UL (4.70-6.10) L Hemoglobin 12.1 G/DL (14.2-18.0) L Hematocrit 39.2 % (42.0-52.0) L Mean Corpuscular Volume 92 FL (80-99) Mean Corpuscular Hemoglobin 28.2 PG (27.0-31.0) Mean Corpuscular Hemoglobin Concent 30.8 G/DL (32.0-36.0) L Red Cell Distribution Width 14.8 % (11.6-14.8) Platelet Count 446 K/UL (150-450) Mean Platelet Volume 5.9 FL (6.5-10.1) L Neutrophils (%) (Auto) 79.2 % (45.0-75.0) H Lymphocytes (%) (Auto) 11.7 % (20.0-45.0) L Monocytes (%) (Auto) 6.9 % (1.0-10.0) Eosinophils (%) (Auto) 0.0 % (0.0-3.0) Basophils (%) (Auto) 2.3 % (0.0-2.0) H Sodium Level 141 mEQ/L (135-145) Potassium Level 4.2 mEQ/L (3.4-4.9) Chloride Level 92 mEQ/L (98-107) L Carbon Dioxide Level 39 mEQ/L (20-30) H Anion Gap 10 (5-15) Blood Urea Nitrogen 18 mg/dL (7-23) Creatinine 0.9 mg/dL (0.7-1.2) Estimat Glomerular Filtration Rate > 60 mL/min (>60) Glucose Level 144 mg/dL (74-106) H Calcium Level 10.1 mg/dL (8.6-10.2) Total Bilirubin 0.2 mg/dL (0.0-1.2) Aspartate Amino Transf (AST/SGOT) 12 U/L (5-40) Alanine Aminotransferase (ALT/SGPT) 12 U/L (3-41) Alkaline Phosphatase 92 U/L (40-129) Total Creatine Kinase 23 U/L (38-174) L Creatine Kinase MB 2.6 ng/mL (< 6.7) Creatine Kinase MB Relative Index 11.3 Troponin I < 0.30 ng/mL (<=0.30) Total Protein 7.8 g/dL (6.6-8.7) Albumin 4.0 g/dL (3.5-5.2) Globulin 3.8 g/dL Albumin/Globulin Ratio 1.0 (1.0-2.7) Arterial Blood pH 7.150 (7.350-7.450) 7.150 (7.350-7.450) Arterial Blood Partial Pressure CO2 145.9 mmHg (35.0-45.0) *H 123.3 mmHg (35.0-45.0) *H Arterial Blood Partial Pressure O2 243.5 mmHg (75.0-100.0) H 418.3 mmHg (75.0-100.0) H Arterial Blood HCO3 50.1 mmol/L (22.0-26.0) H 42.6 mmol/L (22.0-26.0) H Arterial Blood Oxygen Saturation 99.3 % (92.0-98.0) H 99.7 % (92.0-98.0) H Arterial Blood Base Excess 15.8 9.7 Joseluis Test Positive Positive Lactic Acid Level 0.80 mmol/L (0.66-2.22) Test 09/21/16 06:45 White Blood Count 11.5 K/UL (4.8-10.8) H Red Blood Count 3.25 M/UL (4.70-6.10) L Hemoglobin 9.2 G/DL (14.2-18.0) L Hematocrit 29.6 % (42.0-52.0) L Mean Corpuscular Volume 91 FL (80-99) Mean Corpuscular Hemoglobin 28.3 PG (27.0-31.0) Mean Corpuscular Hemoglobin Concent 31.1 G/DL (32.0-36.0) L Red Cell Distribution Width 15.0 % (11.6-14.8) H Platelet Count 366 K/UL (150-450) Mean Platelet Volume 6.8 FL (6.5-10.1) Neutrophils (%) (Auto) 83.1 % (45.0-75.0) H Lymphocytes (%) (Auto) 6.8 % (20.0-45.0) L Monocytes (%) (Auto) 9.8 % (1.0-10.0) Eosinophils (%) (Auto) 0.0 % (0.0-3.0) Basophils (%) (Auto) 0.3 % (0.0-2.0) Sodium Level 141 mEQ/L (135-145) Potassium Level 4.2 mEQ/L (3.4-4.9) Chloride Level 98 mEQ/L (98-107) Carbon Dioxide Level 35 mEQ/L (20-30) H Anion Gap 8 (5-15) Blood Urea Nitrogen 16 mg/dL (7-23) Creatinine 0.7 mg/dL (0.7-1.2) Estimat Glomerular Filtration Rate > 60 mL/min (>60) Glucose Level 115 mg/dL (74-106) H Calcium Level 8.9 mg/dL (8.6-10.2) Total Bilirubin < 0.2 mg/dL (0.0-1.2) Direct Bilirubin 0.1 mg/dL (0.1-0.3) Aspartate Amino Transf (AST/SGOT) 40 U/L (5-40) Alanine Aminotransferase (ALT/SGPT) 48 U/L (3-41) H Alkaline Phosphatase 108 U/L (40-129) Total Protein 6.1 g/dL (6.6-8.7) L Albumin 3.1 g/dL (3.5-5.2) L Globulin 3.0 g/dL Albumin/Globulin Ratio 1.0 (1.0-2.7) Height (Feet): 6 Height (Inches): 2.00 Weight (Pounds): 127 Medications Current Medications Medications (Trade) Dose Ordered Sig/Shraddha Route PRN Reason Start Time Stop Time Status Last Admin Dose Admin Acetaminophen (Tylenol) 650 mg Q4H PRN ORAL fever>100.5 09/20/16 18:30 10/20/16 18:29 Albuterol/ Ipratropium 3 ml 3 ml Q4H PRN HHN Shortness of Breath 09/20/16 18:30 09/25/16 18:29 Amikacin Sulfate 1000 mg/Sodium Chloride 114 ml @ 114 mls/hr Q24H IV 09/21/16 00:00 09/28/16 00:00 09/21/16 00:00 Ertapenem 1 gm/ Sodium Chloride 55 ml @ 110 mls/hr Q24H IV 09/20/16 21:00 09/25/16 20:59 09/20/16 21:39 Heparin Sodium (Porcine) (Heparin 5000 units/ml) 5,000 units EVERY 12 HOURS SUBQ 09/20/16 21:00 10/20/16 20:59 09/20/16 20:55 Lorazepam 2 mg 2 mg Q2H PRN IV For Anxiety 09/20/16 18:30 09/27/16 18:29 09/21/16 08:22 Morphine Sulfate (Morphine Sulfate) 4 mg Q4H PRN IVP Severe Pain (Pain Scale 7-10) 09/20/16 18:30 09/27/16 18:29 Norepinephrine Bitartrate 4 mg/ Dextrose 254 ml @ 0 mls/hr Q24H IV 09/20/16 21:00 10/20/16 20:59 Ondansetron HCl (Zofran) 4 mg Q6H PRN IVP Nausea & Vomiting 09/20/16 18:30 10/20/16 18:29 Polyethylene Glycol (Miralax) 17 gm DAILYPRN PRN ORAL Constipation 09/20/16 18:30 10/20/16 18:29 Propofol (Diprivan) 100 ml @ 0 mls/hr Q24H IV 09/20/16 18:15 09/22/16 18:14 09/20/16 18:12 Sodium Chloride (Sodium Chloride 1000ml bag) 1,000 ml @ 100 mls/hr Q10H IVLG 09/20/16 19:00 10/20/16 18:59 09/20/16 21:37 Vancomycin HCl/ Dextrose (Vancomycin/D5W) 275 ml @ 183.3 mls/ hr Q12H IVPB 09/20/16 22:00 09/25/16 21:59 09/20/16 21:40 Assessment/Plan Assessment/Plan ASSESSMENT acute hypoxemic hypercapnic respiratory failure requiring intubation acute COPD exacerbation possible PNA Pulmonary nodules Chronic RLE DVT Tobacco abuse Hx HTN DM acute on chronic encephalopathy PLAN OF CARE ICU vent support Pulmonary toietl daily CXR and ABG empiric abx, fup with cx ID follows IV steroids and taper as permitted BS management with SS of insulin NGT for feeding strict aspiration precautions, monitor tolerance DVT, GI prophylaxis pain management bowel regimen DVT, prophylaxis case discussed and evaluated by supervising physician Hua ([facility]),Katia CAMACHO Sep 21, 2016 08:41
--- NOTE | 2016-09-21 08:52 | Consultation ---
Consult Note Consult Note ID CONSULT: Dict# [id number] Assessment/Plan ASSESSMENT: 66 y/o male with: // COPD exacerbation r/o HCAP - CXR 09/20: No acute process. Hyperinflation, consistent with COPD // Leukocytosis - improved, afebrile ( SP steroids ) // Acute VDRF - intubated 09/20 // Pulmonary nodules // Chronic RLE DVT // Tobacco abuse // [facility] resident // Negative MRSA, VRE screens // NKDA // Full Code PLAN: - continue empiric broad spectrum amikacin, invanz d# 2 for now. DC IV vancomycin d# 2 - check influenza - f/u cultures - f/u TTE - monitor CBC, temperatures - monitor BMP - monitor CXR - vent support, wean as tolerated Thanks! Will follow NAOMI GEORGE Sep 21, 2016 08:52
[2016-09-21] MEDS: Heparin 5000 units/ml inj SUBQ SCH ×2 (09:11→21:03)
--- NOTE | 2016-09-21 11:36 | Diagnostic Imaging Report ---
Indication: NG tube Comparison: None Single view of the abdomen obtained NG tube is in good position with both the proximal port and tip in the stomach. Bowel gas pattern is nonspecific. The study is limited by motion. In pression: NG tube in good position
[2016-09-21 12:08] LABS: ABG ALLEN TEST POSITIVE; ABG BASE EXCESS 12.2; ABG PCO2 74.4 mmHg (35.0-45.0)
[2016-09-21] MEDS: Solu-MEDROL 40mg Inj IVP SCH ×2 (12:11→18:08)
[2016-09-21] MEDS ORDERED: Tubing IV Secondary IV ONE (16:12)
--- NOTE | 2016-09-21 17:48 | Consultation ---
DATE OF CONSULTATION: 09/21/2016 INFECTIOUS DISEASE CONSULTATION REQUESTING PHYSICIAN: Steve Rader M.D. REASON FOR CONSULTATION: Leukocytosis. HISTORY OF PRESENT ILLNESS: This is a 66-year-old male smoker with COPD [facility] on [facility]2016 with shortness of breath and hypoxia. The patient was intubated in the emergency room. Chest x-ray shows no acute process and hyperinflation consistent with COPD and leukocytosis with left shift and no fevers. He did receive steroids in the emergency room. Blood cultures and sputum cultures are pending. He has been started on empiric IV vancomycin, amikacin and Invanz. ID now consulted to assist in management. PAST MEDICAL HISTORY: 1. COPD. 2. Chronic right lower extremity DVT. 3. Pulmonary nodules. 4. Chronic anemia. MEDICATIONS: 1. Vancomycin. 2. Amikacin. 3. Invanz. ALLERGIES: No known drug allergies. SOCIAL HISTORY: The patient is resident of [facility]. History of tobacco use. FAMILY HISTORY: Noncontributory. REVIEW OF SYSTEMS: Unable to obtain. PHYSICAL EXAMINATION: GENERAL: The patient is intubated and sedated. VITAL SIGNS: Maximum temperature 99.1 degrees, blood pressure 131/91, heart rate 119, respiratory rate 20, and saturating 100% on 30% FiO2. CARDIOVASCULAR: Tachycardia. No murmurs. PULMONARY: Decreased breath sounds bilaterally. ABDOMEN: Bowel sounds present. Soft, nondistended, and nontender. Johnson catheter in place. EXTREMITIES: No edema. LABORATORY AND DIAGNOSTIC DATA: White blood cell count 11.5 decreased from 16.3 with left shift, hemoglobin 9.2, and platelets 266,000. Sodium 141, potassium 4.3, chloride 98, bicarbonate 35, BUN 16, and creatinine 0.7. AST 40, ALT 48, and alkaline phosphatase 108. Total bilirubin less than 0.2. Albumin 3.1. Lactic acid 0.8. Microbiology, 1. On 09/20/2016, blood culture pending. 2. On 09/20/2016, sputum culture pending. Imaging, 3. On 09/20/2016, chest x-ray no acute findings. Hyperinflation consistent with COPD. 4. On 09/20/2016, echocardiogram pending. ASSESSMENT: 1. Chronic obstructive pulmonary disease exacerbation, rule out healthcare associated pneumonia. Chest x-ray shows no acute findings initially. 2. Leukocytosis, improved and afebrile status post steroids. 3. Acute ventilator-dependent respiratory failure, intubated on 09/20/2016. 4. Pulmonary nodules. 5. Chronic right lower extremity deep vein thrombosis. 6. Tobacco abuse. 7. [facility] resident. 8. Negative methicillin-resistant Staphylococcus aureus and vancomycin-resistant Enterococcus screens. 9. No known drug allergies. 10. Full Code. PLAN: 1. Continue empiric broad-spectrum, amikacin and Invanz day #2 for now. Discontinue intravenous vancomycin day #2. 2. Check influenza. 3. Followup cultures. 4. Followup echocardiogram. 5. Monitor CBC and temperatures. 6. Monitor BMP. 7. Monitor chest x-ray. 8. Ventilator support and wean as tolerated. Thank you. We will follow. Mendez Koo M.D. DR: MENDEL JOB#: [id number] CC: Saeid Cortes M.D. Arash Alborzi, M.D
[2016-09-21] MEDS: NovoLOG Insulin Flexpen SUBQ SCH (18:00)
[2016-09-21] MEDS: Ertapenem 1 GM in NS 55 ML IV SCH (21:02)
[2016-09-21] MEDS: Morphine Sulfate 4mg/ml Inj IVP PRN (21:55)
--- NOTE | 2016-09-21 22:07 | History & Physical ---
History and Physical History & Physicial The patient was seen and examined at bedside and all new and available data was reviewed in the patients chart. Last 24 Hour Vital Signs Date Time Temp Pulse Resp B/P Pulse Ox O2 Delivery O2 Flow Rate FiO2 09/21/16 21:00 155/91 09/21/16 20:56 130 16 40 09/21/16 20:00 124 09/21/16 20:00 40 09/21/16 19:00 116 23 99/54 98 Mechanical Ventilator 40 09/21/16 18:49 116 16 Mechanical Ventilator 30 09/21/16 18:49 115 16 40 09/21/16 18:00 122 16 102/67 98 Mechanical Ventilator 40 09/21/16 17:21 121 16 40 09/21/16 17:00 121 34 97/70 99 Mechanical Ventilator 40 09/21/16 16:00 40 09/21/16 16:00 117 09/21/16 16:00 98.0 117 18 124/84 98 Mechanical Ventilator 40 09/21/16 15:53 115 16 40 09/21/16 15:00 116 18 101/73 98 Mechanical Ventilator 40 09/21/16 14:00 116 19 120/72 98 Mechanical Ventilator 40 09/21/16 13:00 114 16 99/37 100 Mechanical Ventilator 40 09/21/16 12:38 113 16 40 09/21/16 12:00 98.0 116 18 100/68 97 Mechanical Ventilator 40 09/21/16 12:00 116 09/21/16 12:00 40 09/21/16 11:09 115 16 30 09/21/16 11:00 125 16 94/66 95 Mechanical Ventilator 30 09/21/16 10:00 133 26 142/90 93 Mechanical Ventilator 30 09/21/16 09:27 126 16 30 09/21/16 09:00 127 18 126/71 96 Mechanical Ventilator 30 09/21/16 08:00 97.9 125 20 104/72 94 Mechanical Ventilator 30 09/21/16 08:00 30 09/21/16 08:00 125 09/21/16 07:00 119 16 90/63 99 Mechanical Ventilator 30 09/21/16 06:43 119 16 Mechanical Ventilator 30 09/21/16 06:43 123 16 30 09/21/16 06:00 126 22 131/91 100 Mechanical Ventilator 40 09/21/16 05:00 130 20 134/40 100 Mechanical Ventilator 40 09/21/16 04:44 129 16 40 09/21/16 04:00 124 09/21/16 04:00 40 09/21/16 04:00 97.6 125 18 120/64 100 Mechanical Ventilator 40 09/21/16 03:17 115 16 40 09/21/16 03:01 116 20 131/91 100 Mechanical Ventilator 40 09/21/16 03:00 110 20 90/77 100 Mechanical Ventilator 40 09/21/16 02:00 110 20 131/91 100 Mechanical Ventilator 40 09/21/16 01:08 110 16 40 09/21/16 01:00 110 20 99/69 100 Mechanical Ventilator 40 09/21/16 00:00 98.5 113 20 103/86 100 Mechanical Ventilator 40 09/21/16 00:00 108 09/20/16 23:10 106 16 40 09/20/16 23:00 108 16 104/80 100 Mechanical Ventilator 40 (Patient was seen earlier today. Signature timestamp does not reflect patient encounter time) Steve Barnes MD, MD Sep 21, 2016 22:07
--- NOTE | 2016-09-21 23:59 | History and Physical Report ---
DATE OF ADMISSION: 09/20/[address] Rader. CHIEF COMPLAINT: The patient is a 66-year-old male, history of chronic obstructive pulmonary disease who presents with chief complaint of shortness of breath. HISTORY OF PRESENT ILLNESS: The patient is a resident of [facility]. The patient was admitted to [facility] in August 2016 for COPD exacerbation. The patient was on BiPAP at that time. The patient refused intubation at that time. According to staff at [facility], the patient began to experience shortness of breath on 09/20/2016. The patient became increasingly short of breath. The patient was transferred to [place] emergency room. The patient was emergently intubated. The patient is admitted with respiratory failure and exacerbation of COPD. PAST MEDICAL HISTORY: Significant for 1. Chronic obstructive pulmonary disease. 2. History of respiratory failure, status post intubation in June 2016. PAST SURGICAL HISTORY: The patient denies. MEDICATIONS: Current medications 1. Tylenol 650 mg one tablet p.o. q.4 h. p.r.n. 2. Advair 250/50 one puff p.o. twice daily. 3. Tessalon Perles 100 mg p.o. three times daily p.r.n. 4. Diamox 250 mg p.o. daily. 5. DuoNeb nebulizer q.8 h. p.r.n. 6. Iron sulfate 325 mg one tablet p.o. daily. 7. Folic acid 1 mg one tablet p.o. daily. 8. Heparin 5000 units subcutaneously twice daily. 9. Mucinex 600 mg q.12 h. p.r.n. 10. Multivitamin daily. 11. Nexium 20 mg one tablet p.o. daily. 12. Zofran 4 mg one tablet p.o. q.4 h. p.r.n. 13. Prednisone 20 mg one tablet p.o. daily. 14. Theophylline extended release 200 mg one tablet p.o. twice daily. 15. Vitamin C one tablet p.o. daily. ALLERGIES: No known drug allergies. SOCIAL HISTORY: The patient resident of [facility]. The patient is single. The patient admits to previous tobacco use, however, quit a couple months ago. The patient denies alcohol use. PHYSICAL EXAMINATION: GENERAL: The patient is well developed and well nourished male, who is intubated and sedated. VITAL SIGNS: Temperature 98 degrees, respirations 18, pulse 117, and blood pressure 124/84. HEENT: Eyes, pupils are equal and responsive to light and accommodation. Extraocular movements are intact. NECK: Supple without lymphadenopathy. CHEST: Lungs are clear to auscultation with expiratory wheezes bilaterally. CARDIOVASCULAR: Regular rate. S1 and S2. No murmurs, rubs, or gallops. ABDOMEN: Soft, nontender, and nondistended. Positive bowel sounds. No hepatosplenomegaly. Currently, no rebound or guarding. EXTREMITIES: Negative for clubbing, cyanosis, or edema. RECTAL AND GENITAL: Exams were not performed. LABORATORY AND DIAGNOSTIC DATA: WBC 16.3, hemoglobin 12.1, hematocrit 39.2, and platelets 446,000. Sodium 141, potassium 4.2, chloride 92, CO2 39, BUN 18, creatinine 0.9, and glucose 144. Troponin less than 0.3. Arterial blood gas in room air pH 7.15, pCO2 145.9, pO2 243.5, bicarbonate 50.1, and base excess 15.8. ASSESSMENT: This is a 66-year-old male 1. Respiratory failure. 2. Chronic obstructive pulmonary disease. 3. Chronic right lower extremity deep venous thrombosis. 4. Probable healthcare-associated pneumonia. TREATMENT: 1. Respiratory failure/chronic obstructive pulmonary disease/pneumonia. Pulmonary consultation will be obtained with Dr. Demetrius Andrade. An Infectious Disease consultation will be obtained with Dr. Trujillo. The patient has been started empirically on amikacin and ertapenem. Sputum cultures are pending. Continue pulmonary toilet per Pulmonary. 2. Right lower extremity deep venous thrombosis. Goyo Tsang M.D. DR: MARCOS JOB#: [id number] CC:
[2016-09-22] VITALS (24 sets, daily range): BP systolic 80–179; BP diastolic 58–113
[2016-09-22] MEDS: Solu-MEDROL 40mg Inj IVP SCH ×2 (00:10→05:46)
[2016-09-22] MEDS: NovoLOG Insulin Flexpen SUBQ SCH ×5 (00:12→23:35)
[2016-09-22] MEDS: LORazepam Inj 2mg/ml 1ml IV PRN ×2 (03:43→23:20)
[2016-09-22 04:50] LABS: MEAN CORPUSCULAR HEMOGLOBIN 28.1 PG (27.0-31.0); MEAN CORPUSCULAR HGB CONC 30.6 G/DL (32.0-36.0); MEAN CORPUSCULAR VOLUME 92 FL (80-99); MEAN PLATELET VOLUME 6.3 FL (6.5-10.1); PLATELET COUNT 375 K/UL (150-450); RED CELL DISTRIBUTION WIDTH 15.4 % (11.6-14.8); WHITE BLOOD COUNT 8.3 K/UL (4.8-10.8)
[2016-09-22 05:33] LABS: ALANINE AMINOTRANSFERASE 42 U/L (3-41); ALBUMIN/GLOBULIN RATIO 0.9 (1.0-2.7); ANION GAP 9 (5-15); ASPARTATE AMINO TRANSFERASE 26 U/L (5-40); CALCIUM 9.3 mg/dL (8.6-10.2); CARBON DIOXIDE 34 mEQ/L (20-30); CHLORIDE 105 mEQ/L (98-107); CREATININE 0.6 mg/dL (0.7-1.2); GLOMERULAR FILTRATION RATE > 60 mL/min (>60); HEMOLYSIS 0; MAGNESIUM 2.1 mg/dL (1.7-2.5); PHOSPHORUS 3.4 mg/dL (2.5-4.8); POTASSIUM 4.8 mEQ/L (3.4-4.9); SODIUM 148 mEQ/L (135-145); TOTAL PROTEIN 6.4 g/dL (6.6-8.7)
--- NOTE | 2016-09-22 07:37 | Pulmonolgy Critical Care Note ---
Critical Care - Asmt/Plan Assessment/Plan: ASSESSMENT acute hypoxemic hypercapnic respiratory failure requiring intubation acute COPD exacerbation possible PNA Pulmonary nodules Chronic RLE DVT Tobacco abuse Hx HTN DM acute on chronic encephalopathy PLAN OF CARE ICU vent support Pulmonary toilet daily CXR and ABG ABG this am with less hypercapnia, empiric abx, fup with cx ID follows IV steroids and taper CT chest when more stable BS management with SS of insulin NGT for feeding strict aspiration precautions, monitor tolerance DVT, GI prophylaxis pain management bowel regimen DVT, prophylaxis case discussed and evaluated by supervising physician Critical Care - Objective Last 24 Hour Vital Signs Date Time Temp Pulse Resp B/P Pulse Ox O2 Delivery O2 Flow Rate FiO2 09/22/16 07:00 92 16 106/81 100 Mechanical Ventilator 40 09/22/16 06:34 93 16 40 09/22/16 06:34 101 16 Mechanical Ventilator 40 09/22/16 06:00 97 26 106/81 98 Mechanical Ventilator 40 09/22/16 05:00 104 19 97/75 100 Mechanical Ventilator 40 09/22/16 04:58 103 16 40 09/22/16 04:00 40 09/22/16 04:00 108 09/22/16 04:00 97.9 111 28 111/77 99 Mechanical Ventilator 40 09/22/16 03:00 113 19 111/77 100 Mechanical Ventilator 40 09/22/16 02:52 104 16 40 09/22/16 02:00 105 16 97/75 100 Mechanical Ventilator 40 09/22/16 01:00 108 16 101/76 100 Mechanical Ventilator 40 09/22/16 00:51 113 16 40 09/22/16 00:00 40 09/22/16 00:00 113 09/22/16 00:00 98.2 113 16 107/74 99 Mechanical Ventilator 40 09/21/16 23:01 123 16 40 09/21/16 23:00 121 16 96/70 99 Mechanical Ventilator 40 09/21/16 22:00 138 26 155/91 98 Mechanical Ventilator 40 09/21/16 21:00 155/91 09/21/16 21:00 138 26 155/91 98 Mechanical Ventilator 40 09/21/16 20:56 130 16 40 09/21/16 20:00 124 09/21/16 20:00 131 31 121/77 98 Mechanical Ventilator 40 09/21/16 20:00 40 09/21/16 19:00 116 23 99/54 98 Mechanical Ventilator 40 09/21/16 18:49 116 16 Mechanical Ventilator 30 09/21/16 18:49 115 16 40 09/21/16 18:00 122 16 102/67 98 Mechanical Ventilator 40 09/21/16 17:21 121 16 40 09/21/16 17:00 121 34 97/70 99 Mechanical Ventilator 40 09/21/16 16:00 40 09/21/16 16:00 117 09/21/16 16:00 98.0 117 18 124/84 98 Mechanical Ventilator 40 09/21/16 15:53 115 16 40 09/21/16 15:00 116 18 101/73 98 Mechanical Ventilator 40 09/21/16 14:00 116 19 120/72 98 Mechanical Ventilator 40 09/21/16 13:00 114 16 99/37 100 Mechanical Ventilator 40 09/21/16 12:38 113 16 40 09/21/16 12:00 98.0 116 18 100/68 97 Mechanical Ventilator 40 09/21/16 12:00 116 09/21/16 12:00 40 09/21/16 11:09 115 16 30 09/21/16 11:00 125 16 94/66 95 Mechanical Ventilator 30 09/21/16 10:00 133 26 142/90 93 Mechanical Ventilator 30 09/21/16 09:27 126 16 30 09/21/16 09:00 127 18 126/71 96 Mechanical Ventilator 30 09/21/16 08:00 97.9 125 20 104/72 94 Mechanical Ventilator 30 09/21/16 08:00 30 09/21/16 08:00 125 Objective: General Appearance: no apparent distress, orally intubated, lethargic, vent AC 500-16-40% HEENT: normocephalic, atraumatic, anicteric Neck: supple Respiratory/Chest: decreased breath sounds Cardiovascular/Chest: regular rhythm, no JVD, tachycardia Abdomen: normal bowel sounds, non tender, soft Extremities: normal capillary refill Neurologic: abnormal gait, lethargic Musculoskeletal: normal muscle bulk Micro: Microbiology Date/Time Source Procedure Growth Status 09/20/16 18:30 Blood Blood Culture - Preliminary NO GROWTH AFTER 24 HOURS Resulted 09/20/16 18:15 Blood Blood Culture - Preliminary NO GROWTH AFTER 24 HOURS Resulted 09/21/16 09:24 Nasopharynx Influenza Types A,B Antigen (JACINTA) - Final Complete Accucheck: 123 Critical Care - Subjective ROS Limited/Unobtainable: Yes Interval Events: remains intubated leukocytosis resolved, afebrile ABG this am with less hypercapnia, no signs of respiratory distress on current settings Condition: critical EKG Rhythm: Sinus Rhythm FI02: 40 Vent Support Breath Rate: 16 Vent Support Mode: AC Vent Tidal Volume: 500 Sputum Amount: Small PEEP: 5.0 PIP: 35 Fluids: NS at 100 Tube Feeding Amount: 30 I&O: Intake and Output 09/21/16 09/22/16 19:00 07:00 Intake Total 1290 ml 1560 ml Output Total 350 ml 440 ml Balance 940 ml 1120 ml Intake Oral 0 ml IV Total 1200 ml 1200 ml Tube Feeding 90 ml 360 ml Output Urine Total 350 ml 440 ml CXR: Hyperinflation c/w COPD changes ET-Tube: 7.5 ET Position: 23 [facility] NP Sep 22, 2016 07:37
[2016-09-22 08:40] LABS: ABG ALLEN TEST POSITIVE; ABG BASE EXCESS 9.1; ABG PCO2 68.6 mmHg (35.0-45.0)
--- NOTE | 2016-09-22 08:54 | Infectious Diseases Prog Note ---
Assessment/Plan Assessment/Plan ASSESSMENT: 66 y/o male with: // COPD exacerbation r/o HCAP - SCx pending - CXR 09/20: No acute process. Hyperinflation, consistent with COPD - negative: influenza // Leukocytosis - resolved, afebrile ( on steroids ) // Acute VDRF - intubated 09/20 // Severe pulmonary HTN / grade I diastolic dysfunction / mod TR // Pulmonary nodules // Chronic RLE DVT // Tobacco abuse // [facility] resident // Negative MRSA, VRE screens // NKDA // Full Code PLAN: - continue empiric broad spectrum amikacin, invanz d# 3 / 5-7 ( 09/21 SP IV vancomycin d# 2 ) - f/u cultures - monitor CBC, temperatures - monitor BMP - monitor CXR - vent support, wean as tolerated Subjective Allergies: Coded Allergies: No Known Allergies (Unverified , 06/17/16) Subjective remains afebrile on vent started on steroids Objective Vital Signs Last 24 Hour Vital Signs Date Time Temp Pulse Resp B/P Pulse Ox O2 Delivery O2 Flow Rate FiO2 09/22/16 07:00 92 16 106/81 100 Mechanical Ventilator 40 09/22/16 06:34 93 16 40 09/22/16 06:34 101 16 Mechanical Ventilator 40 09/22/16 06:00 97 26 106/81 98 Mechanical Ventilator 40 09/22/16 05:00 104 19 97/75 100 Mechanical Ventilator 40 09/22/16 04:58 103 16 40 09/22/16 04:00 40 09/22/16 04:00 108 09/22/16 04:00 97.9 111 28 111/77 99 Mechanical Ventilator 40 09/22/16 03:00 113 19 111/77 100 Mechanical Ventilator 40 09/22/16 02:52 104 16 40 09/22/16 02:00 105 16 97/75 100 Mechanical Ventilator 40 09/22/16 01:00 108 16 101/76 100 Mechanical Ventilator 40 09/22/16 00:51 113 16 40 09/22/16 00:00 40 09/22/16 00:00 113 09/22/16 00:00 98.2 113 16 107/74 99 Mechanical Ventilator 40 09/21/16 23:01 123 16 40 09/21/16 23:00 121 16 96/70 99 Mechanical Ventilator 40 09/21/16 22:00 138 26 155/91 98 Mechanical Ventilator 40 09/21/16 21:00 155/91 09/21/16 21:00 138 26 155/91 98 Mechanical Ventilator 40 09/21/16 20:56 130 16 40 09/21/16 20:00 124 09/21/16 20:00 131 31 121/77 98 Mechanical Ventilator 40 09/21/16 20:00 40 09/21/16 19:00 116 23 99/54 98 Mechanical Ventilator 40 09/21/16 18:49 116 16 Mechanical Ventilator 30 09/21/16 18:49 115 16 40 09/21/16 18:00 122 16 102/67 98 Mechanical Ventilator 40 09/21/16 17:21 121 16 40 09/21/16 17:00 121 34 97/70 99 Mechanical Ventilator 40 09/21/16 16:00 40 09/21/16 16:00 117 09/21/16 16:00 98.0 117 18 124/84 98 Mechanical Ventilator 40 09/21/16 15:53 115 16 40 09/21/16 15:00 116 18 101/73 98 Mechanical Ventilator 40 09/21/16 14:00 116 19 120/72 98 Mechanical Ventilator 40 09/21/16 13:00 114 16 99/37 100 Mechanical Ventilator 40 09/21/16 12:38 113 16 40 09/21/16 12:00 98.0 116 18 100/68 97 Mechanical Ventilator 40 09/21/16 12:00 116 09/21/16 12:00 40 09/21/16 11:09 115 16 30 09/21/16 11:00 125 16 94/66 95 Mechanical Ventilator 30 09/21/16 10:00 133 26 142/90 93 Mechanical Ventilator 30 09/21/16 09:27 126 16 30 09/21/16 09:00 127 18 126/71 96 Mechanical Ventilator 30 Height (Feet): 6 Height (Inches): 2.00 Weight (Pounds): 127 General Appearance: other - intubated Respiratory/Chest: decreased breath sounds Cardiovascular: normal rate, regular rhythm Abdomen: normal bowel sounds, soft, non tender, non distended Microbiology Date/Time Source Procedure Growth Status 09/20/16 18:30 Blood Blood Culture - Preliminary NO GROWTH AFTER 24 HOURS Resulted 09/20/16 18:15 Blood Blood Culture - Preliminary NO GROWTH AFTER 24 HOURS Resulted 09/21/16 09:24 Nasopharynx Influenza Types A,B Antigen (JACINTA) - Final Complete Laboratory Tests Test 09/21/16 11:25 09/21/16 12:00 09/22/16 04:15 09/22/16 07:50 Arterial Blood pH 7.370 (7.350-7.450) 7.345 (7.350-7.450) Arterial Blood Partial Pressure CO2 74.4 mmHg (35.0-45.0) *H 68.6 mmHg (35.0-45.0) *H Arterial Blood Partial Pressure O2 65.1 mmHg (75.0-100.0) L 130.4 mmHg (75.0-100.0) H Arterial Blood HCO3 40.9 mmol/L (22.0-26.0) H 36.6 mmol/L (22.0-26.0) H Arterial Blood Oxygen Saturation Pending 97.9 % (92.0-98.0) Arterial Blood Base Excess 12.2 9.1 Joseluis Test Positive Positive Random Amikacin Level 8.5 ug/mL White Blood Count 8.3 K/UL (4.8-10.8) Red Blood Count 3.50 M/UL (4.70-6.10) L Hemoglobin 9.8 G/DL (14.2-18.0) L Hematocrit 32.2 % (42.0-52.0) L Mean Corpuscular Volume 92 FL (80-99) Mean Corpuscular Hemoglobin 28.1 PG (27.0-31.0) Mean Corpuscular Hemoglobin Concent 30.6 G/DL (32.0-36.0) L Red Cell Distribution Width 15.4 % (11.6-14.8) H Platelet Count 375 K/UL (150-450) Mean Platelet Volume 6.3 FL (6.5-10.1) L Neutrophils (%) (Auto) % (45.0-75.0) Lymphocytes (%) (Auto) % (20.0-45.0) Monocytes (%) (Auto) % (1.0-10.0) Eosinophils (%) (Auto) % (0.0-3.0) Basophils (%) (Auto) % (0.0-2.0) Sodium Level 148 mEQ/L (135-145) H Potassium Level 4.8 mEQ/L (3.4-4.9) Chloride Level 105 mEQ/L (98-107) Carbon Dioxide Level 34 mEQ/L (20-30) H Anion Gap 9 (5-15) Blood Urea Nitrogen 16 mg/dL (7-23) Creatinine 0.6 mg/dL (0.7-1.2) L Estimat Glomerular Filtration Rate > 60 mL/min (>60) Glucose Level 129 mg/dL (74-106) H Calcium Level 9.3 mg/dL (8.6-10.2) Phosphorus Level 3.4 mg/dL (2.5-4.8) Magnesium Level 2.1 mg/dL (1.7-2.5) Total Bilirubin < 0.2 mg/dL (0.0-1.2) Aspartate Amino Transf (AST/SGOT) 26 U/L (5-40) Alanine Aminotransferase (ALT/SGPT) 42 U/L (3-41) H Alkaline Phosphatase 100 U/L (40-129) Total Protein 6.4 g/dL (6.6-8.7) L Albumin 3.1 g/dL (3.5-5.2) L Globulin 3.3 g/dL Albumin/Globulin Ratio 0.9 (1.0-2.7) L Current Medications Medications (Trade) Dose Ordered Sig/Shraddha Route PRN Reason Start Time Stop Time Status Last Admin Dose Admin Acetaminophen (Tylenol) 650 mg Q4H PRN ORAL fever>100.5 09/20/16 18:30 10/20/16 18:29 Albuterol/ Ipratropium 3 ml 3 ml Q4H PRN HHN Shortness of Breath 09/20/16 18:30 09/25/16 18:29 Amikacin Sulfate/ Sodium Chloride (Amikin/Sodium Chloride) 114 ml @ 114 mls/hr Q36H IV 09/22/16 12:00 09/29/16 11:59 Dextrose (Dextrose 50%) STAT PRN IV Hypoglycemia 09/21/16 16:45 10/21/16 16:44 Ertapenem/Sodium Chloride (INVanz/Sodium Chloride) 55 ml @ 110 mls/hr Q24H IV 09/20/16 21:00 09/25/16 20:59 09/21/16 21:02 Heparin Sodium (Porcine) (Heparin 5000 units/ml) 5,000 units EVERY 12 HOURS SUBQ 09/20/16 21:00 10/20/16 20:59 09/21/16 21:03 Insulin Aspart (NovoLOG) start when feeding started Q6HR SUBQ 09/21/16 18:00 10/21/16 17:59 09/22/16 05:42 Lorazepam 2 mg 2 mg Q2H PRN IV For Anxiety 09/20/16 18:30 09/27/16 18:29 09/22/16 03:43 Methylprednisolone Sodium Succinate 40 mg 40 mg EVERY 6 HOURS IVP 09/21/16 12:00 10/21/16 11:59 09/22/16 05:46 Morphine Sulfate (Morphine Sulfate) 4 mg Q4H PRN IVP Severe Pain (Pain Scale 7-10) 09/20/16 18:30 09/27/16 18:29 09/21/16 21:55 Norepinephrine Bitartrate/ Dextrose (Levophed/D5W) 254 ml @ 0 mls/hr Q24H IV 09/20/16 21:00 10/20/16 20:59 Ondansetron HCl (Zofran) 4 mg Q6H PRN IVP Nausea & Vomiting 09/20/16 18:30 10/20/16 18:29 Polyethylene Glycol (Miralax) 17 gm DAILYPRN PRN ORAL Constipation 09/20/16 18:30 10/20/16 18:29 Sodium Chloride (Sodium Chloride 1000ml bag) 1,000 ml @ 100 mls/hr Q10H IVLG 09/20/16 19:00 10/20/16 18:59 09/22/16 00:06 NAOMI GEORGE 19, 2017 08:54
[2016-09-22] MEDS: Heparin 5000 units/ml inj SUBQ SCH ×2 (09:00→20:44)
--- NOTE | 2016-09-22 11:30 | Diagnostic Imaging Report ---
Indication: Dyspnea Comparison: 09/21/16 A single view chest radiograph was obtained. Findings: NG tube is not seen well on today's examination but was satisfactory in position on the previous day. Heart size remains normal. No infiltrate seen. Lungs are hyperexpanded. Endotracheal tube position remains satisfactory. Impression: No significant change appreciated
[2016-09-22] MEDS: Amikacin 1,000 MG in NS 110 ML IV SCH (12:00)
--- NOTE | 2016-09-22 18:11 | Internal Med Progress Note ---
Subjective Date of Service: Sep 22, 2016 Physician Name TsangTadeo dockery Attending Physician Steve Rader MD Current Medications Medications (Trade) Dose Ordered Sig/Shraddha Route PRN Reason Start Time Stop Time Status Last Admin Dose Admin Acetaminophen (Tylenol) 650 mg Q4H PRN ORAL fever>100.5 09/20/16 18:30 10/20/16 18:29 Albuterol/ Ipratropium 3 ml 3 ml Q4H PRN HHN Shortness of Breath 09/20/16 18:30 09/25/16 18:29 Amikacin Sulfate/ Sodium Chloride (Amikin/Sodium Chloride) 114 ml @ 114 mls/hr Q36H IV 09/22/16 12:00 09/29/16 11:59 09/22/16 12:00 Dextrose (Dextrose 50%) STAT PRN IV Hypoglycemia 09/21/16 16:45 10/21/16 16:44 Ertapenem/Sodium Chloride (INVanz/Sodium Chloride) 55 ml @ 110 mls/hr Q24H IV 09/20/16 21:00 09/25/16 20:59 09/21/16 21:02 Heparin Sodium (Porcine) (Heparin 5000 units/ml) 5,000 units EVERY 12 HOURS SUBQ 09/20/16 21:00 10/20/16 20:59 09/22/16 09:00 Insulin Aspart (NovoLOG) start when feeding started Q6HR SUBQ 09/21/16 18:00 10/21/16 17:59 09/22/16 05:42 Lorazepam 2 mg 2 mg Q2H PRN IV For Anxiety 09/20/16 18:30 09/27/16 18:29 09/22/16 03:43 Methylprednisolone Sodium Succinate (Solu-MEDROL) 40 mg Q8HR IVP 09/23/16 06:00 10/23/16 05:59 Morphine Sulfate (Morphine Sulfate) 4 mg Q4H PRN IVP Severe Pain (Pain Scale 7-10) 09/20/16 18:30 09/27/16 18:29 09/21/16 21:55 Norepinephrine Bitartrate 4 mg/ Dextrose 254 ml @ 0 mls/hr Q24H IV 09/20/16 21:00 10/20/16 20:59 Ondansetron HCl (Zofran) 4 mg Q6H PRN IVP Nausea & Vomiting 09/20/16 18:30 10/20/16 18:29 Polyethylene Glycol (Miralax) 17 gm DAILYPRN PRN ORAL Constipation 09/20/16 18:30 10/20/16 18:29 Sodium Chloride (Sodium Chloride 1000ml bag) 1,000 ml @ 100 mls/hr Q10H IVLG 09/20/16 19:00 10/20/16 18:59 09/22/16 10:50 Allergies: Coded Allergies: No Known Allergies (Unverified , 06/17/16) ROS Limited/Unobtainable: Yes Subjective 66 YO M admitted with respiratory failure. ICU. Intubated and sedated. Cover for Int Wilder-Dr Rader. Objective Last Vital Signs Date Time Temp Pulse Resp B/P Pulse Ox O2 Delivery O2 Flow Rate FiO2 09/22/16 17:40 Non-Rebreather 100 09/22/16 17:00 104 18 113/82 100 09/22/16 16:00 98.4 General Appearance: moderate distress, thin EENT: PERRL/EOMI, normal ENT inspection Neck: non-tender, normal alignment, supple Cardiovascular: normal peripheral pulses, normal rate, regular rhythm, no gallop/murmur, no JVD Respiratory/Chest: respiratory distress, crackles/rales, rhonchi - bilaterally , expiratory wheezing Abdomen: non tender, soft, no organomegaly, no mass, decreased bowel sounds Extremities: normal range of motion Skin: normal pigmentation, warm/dry Laboratory Tests Test 09/22/16 04:15 09/22/16 07:50 White Blood Count 8.3 K/UL (4.8-10.8) Red Blood Count 3.50 M/UL (4.70-6.10) L Hemoglobin 9.8 G/DL (14.2-18.0) L Hematocrit 32.2 % (42.0-52.0) L Mean Corpuscular Volume 92 FL (80-99) Mean Corpuscular Hemoglobin 28.1 PG (27.0-31.0) Mean Corpuscular Hemoglobin Concent 30.6 G/DL (32.0-36.0) L Red Cell Distribution Width 15.4 % (11.6-14.8) H Platelet Count 375 K/UL (150-450) Mean Platelet Volume 6.3 FL (6.5-10.1) L Neutrophils (%) (Auto) % (45.0-75.0) Lymphocytes (%) (Auto) % (20.0-45.0) Monocytes (%) (Auto) % (1.0-10.0) Eosinophils (%) (Auto) % (0.0-3.0) Basophils (%) (Auto) % (0.0-2.0) Sodium Level 148 mEQ/L (135-145) H Potassium Level 4.8 mEQ/L (3.4-4.9) Chloride Level 105 mEQ/L (98-107) Carbon Dioxide Level 34 mEQ/L (20-30) H Anion Gap 9 (5-15) Blood Urea Nitrogen 16 mg/dL (7-23) Creatinine 0.6 mg/dL (0.7-1.2) L Estimat Glomerular Filtration Rate > 60 mL/min (>60) Glucose Level 129 mg/dL (74-106) H Calcium Level 9.3 mg/dL (8.6-10.2) Phosphorus Level 3.4 mg/dL (2.5-4.8) Magnesium Level 2.1 mg/dL (1.7-2.5) Total Bilirubin < 0.2 mg/dL (0.0-1.2) Aspartate Amino Transf (AST/SGOT) 26 U/L (5-40) Alanine Aminotransferase (ALT/SGPT) 42 U/L (3-41) H Alkaline Phosphatase 100 U/L (40-129) Total Protein 6.4 g/dL (6.6-8.7) L Albumin 3.1 g/dL (3.5-5.2) L Globulin 3.3 g/dL Albumin/Globulin Ratio 0.9 (1.0-2.7) L Arterial Blood pH 7.345 (7.350-7.450) Arterial Blood Partial Pressure CO2 68.6 mmHg (35.0-45.0) *H Arterial Blood Partial Pressure O2 130.4 mmHg (75.0-100.0) H Arterial Blood HCO3 36.6 mmol/L (22.0-26.0) H Arterial Blood Oxygen Saturation 97.9 % (92.0-98.0) Arterial Blood Base Excess 9.1 Joseluis Test Positive Microbiology Date/Time Source Procedure Growth Status 09/20/16 18:30 Blood Blood Culture - Preliminary NO GROWTH AFTER 24 HOURS Resulted 09/20/16 18:15 Blood Blood Culture - Preliminary NO GROWTH AFTER 24 HOURS Resulted 09/21/16 09:24 Nasopharynx Influenza Types A,B Antigen (JACINTA) - Final Complete Intake and Output 09/21/16 09/22/16 19:00 07:00 Intake Total 1290 ml 1560 ml Output Total 350 ml 440 ml Balance 940 ml 1120 ml Intake Oral 0 ml IV Total 1200 ml 1200 ml Tube Feeding 90 ml 360 ml Output Urine Total 350 ml 440 ml Assessment/Plan Problem List: (1) Lung nodule (2) DVT (deep venous thrombosis) (3) Acute respiratory failure Assessment & Plan: Cont vent per pulmonary (4) COPD exacerbation Assessment & Plan: Continue IV solumedrol and duoneb. Continue vent per pulmonary. (5) Pneumonia Assessment & Plan: Cont ertapenem and amikacin per ID Status: unchanged TADEO TSANG Sep 22, 2016 18:11
[2016-09-22 19:59] LABS: ABG PCO2 148.2 mmHg (35.0-45.0)
[2016-09-22 20:00] LABS: ABG ALLEN TEST POSITIVE; ABG BASE EXCESS 11.4
[2016-09-22] MEDS: Ertapenem 1 GM in NS 55 ML IV SCH (20:43)
--- NOTE | 2016-09-22 21:24 | Emergency Room Report ---
History of Present Illness General Chief Complaint: Dyspnea/Respdistress Source: Medical Record Present Illness Allergies: Coded Allergies: No Known Allergies (Unverified , 06/17/16) Nursing Documentation-PMH Hx Cardiac Problems: Yes Hx Hypertension: Yes Hx COPD: Yes Hx Diabetes: Yes Hx Cancer: No Hx Gastrointestinal Problems: Yes - esophagitis Hx Dialysis: No Hx Neurological Problems: No - metabolic encephalopathy Hx Cerebrovascular Accident: No Hx Seizures: No Hx Concentration Difficulty: Yes Hx Dysphasia: Yes - dysphagia Hx Weakness: Yes Physical Exam Vital Signs Date Time Temp Pulse Resp B/P Pulse Ox O2 Delivery O2 Flow Rate FiO2 09/20/16 14:47 99.1 128 24 13/86 96 Non-Rebreather 09/20/16 15:00 100 09/22/16 17:15 15.0 Procedures Intubation Progress I was called upstairs for intubation Patient had apparently self extubated at approximately 6 PM Patient's ABG continued to be concerning In the envelope stuffer on patient requested intubation Upon arrival the patient does appear decreased in mentation Tachycardic CO2 retaining Patient was provided with succinylcholine 100 mg Patient has already sedated With respiratory at bedside Hyperventilation was performed RSI technique was used Patient did require BOUGIE insertion Followed by Seldinger maneuver ET tube over the bougie as the patient has a very anterior flap, along with difficult dentition Patient maintained her percent oxygenation throughout Good CO2 color change And the ET tube was tacked down at 24 cm Chest x-ray to follow please refer to the note Patient's care was handed back to the envelope stuffer Medical Decision Making Diagnostic Impression: Primary Impression: COPD exacerbation Additional Impression: Respiratory failure Qualified Codes: J96.01 - Acute respiratory failure with hypoxia; J96.02 - Acute respiratory failure with hypercapnia Last Vital Signs Date Time Temp Pulse Resp B/P Pulse Ox O2 Delivery O2 Flow Rate FiO2 09/22/16 19:13 120 22 Non-Rebreather 15.0 100 09/22/16 19:00 123/75 100 09/22/16 16:00 98.4 Disposition: ADMITTED INPATIENT Condition: Critical Referrals: Steve Rader MD (PCP) ZHENG CASSIDY D.O. Sep 22, 2016 21:24
[2016-09-22] MEDS: Morphine Sulfate 4mg/ml Inj IVP PRN (21:50)
[2016-09-22 22:08] LABS: ABG PCO2 66.4 mmHg (35.0-45.0)
[2016-09-22 22:09] LABS: ABG ALLEN TEST POSITIVE; ABG BASE EXCESS 8.1
[2016-09-23] VITALS (24 sets, daily range): BP systolic 91–143; BP diastolic 73–96
[2016-09-23] MEDS: NovoLOG Insulin Flexpen SUBQ SCH ×3 (05:40→16:58)
[2016-09-23] MEDS: Solu-MEDROL 40mg Inj IVP SCH ×3 (05:40→21:55)
[2016-09-23 06:20] LABS: LYMPHOCYTES % (AUTO) 7.7 % (20.0-45.0); MEAN CORPUSCULAR HGB CONC 30.6 G/DL (32.0-36.0); MEAN CORPUSCULAR VOLUME 91 FL (80-99); MEAN PLATELET VOLUME 6.7 FL (6.5-10.1); MONOCYTES % (AUTO) 8.6 % (1.0-10.0); NEUTROPHILS % (AUTO) 82.7 % (45.0-75.0); PLATELET COUNT 382 K/UL (150-450); RED BLOOD COUNT 3.31 M/UL (4.70-6.10); RED CELL DISTRIBUTION WIDTH 15.5 % (11.6-14.8); WHITE BLOOD COUNT 11.1 K/UL (4.8-10.8)
[2016-09-23 06:51] LABS: ANION GAP 11 (5-15); CALCIUM 9.3 mg/dL (8.6-10.2); CARBON DIOXIDE 33 mEQ/L (20-30); CHLORIDE 106 mEQ/L (98-107); CREATININE 0.7 mg/dL (0.7-1.2); GLOMERULAR FILTRATION RATE > 60 mL/min (>60); HEMOLYSIS 1; POTASSIUM 4.6 mEQ/L (3.4-4.9); SODIUM 150 mEQ/L (135-145)
--- NOTE | 2016-09-23 08:08 | Infectious Diseases Prog Note ---
Assessment/Plan Assessment/Plan ASSESSMENT: 66 y/o male with: // COPD exacerbation r/o HCAP - SCx pending - CXR 09/22: No infiltrate seen. Lungs are hyperexpanded. - negative: influenza // Leukocytosis - recurrent, mild, afebrile ( on steroids ) // Acute VDRF - intubated 09/20 // Severe pulmonary HTN / grade I diastolic dysfunction / mod TR // Pulmonary nodules // Chronic RLE DVT // Tobacco abuse // NH resident // Negative MRSA, VRE screens // NKDA // Full Code PLAN: - continue empiric broad spectrum amikacin, invanz d# 4 / 5-7 ( 09/21 SP IV vancomycin d# 2 ) - taper steroids per pulm - f/u cultures - monitor CBC, temperatures - monitor BMP - monitor CXR - vent support, wean as tolerated Subjective Allergies: Coded Allergies: No Known Allergies (Unverified , 06/17/16) Subjective remains afebrile on vent Objective Vital Signs Last 24 Hour Vital Signs Date Time Temp Pulse Resp B/P Pulse Ox O2 Delivery O2 Flow Rate FiO2 09/23/16 07:01 105 16 40 09/23/16 07:00 107 16 97/78 100 Mechanical Ventilator 40 09/23/16 07:00 105 16 Mechanical Ventilator 100 09/23/16 06:00 107 16 117/81 100 Mechanical Ventilator 40 09/23/16 05:15 109 16 40 09/23/16 05:00 109 16 117/81 100 Mechanical Ventilator 40 09/23/16 04:00 98.1 104 16 116/88 100 Mechanical Ventilator 40 09/23/16 04:00 107 09/23/16 03:06 108 16 40 09/23/16 03:00 107 16 104/87 100 Mechanical Ventilator 40 09/23/16 02:00 105 16 117/84 100 Mechanical Ventilator 40 09/23/16 01:22 110 16 40 09/23/16 01:00 108 16 94/74 100 Mechanical Ventilator 40 09/23/16 00:00 120 09/23/16 00:00 97.9 114 16 91/78 100 Mechanical Ventilator 40 09/22/16 23:23 121 16 40 09/22/16 23:00 120 16 91/78 100 Mechanical Ventilator 40 09/22/16 22:00 121 16 80/58 100 Mechanical Ventilator 40 09/22/16 21:22 134 24 Mechanical Ventilator 100 09/22/16 21:00 136 27 179/113 100 Mechanical Ventilator 40 09/22/16 21:00 114/79 09/22/16 20:00 98.1 124 23 141/81 100 Bi-pap 30 09/22/16 20:00 121 09/22/16 19:13 120 22 Non-Rebreather 15.0 100 09/22/16 19:00 124 27 123/75 100 Non-Rebreather 100 09/22/16 18:00 128 24 145/73 100 Non-Rebreather 100 09/22/16 17:40 Non-Rebreather 100 09/22/16 17:15 15.0 09/22/16 17:00 104 18 113/82 100 Mechanical Ventilator 30 09/22/16 16:33 103 16 40 09/22/16 16:00 109 09/22/16 16:00 98.4 109 18 107/78 99 Mechanical Ventilator 40 09/22/16 16:00 30 09/22/16 15:12 104 16 40 09/22/16 14:00 96 26 106/83 98 Mechanical Ventilator 40 09/22/16 13:30 106 16 40 09/22/16 13:00 96 26 96/76 98 Mechanical Ventilator 40 09/22/16 13:00 100 26 100/73 98 Mechanical Ventilator 40 09/22/16 12:00 40 09/22/16 12:00 98.0 101 25 112/76 98 Mechanical Ventilator 40 09/22/16 12:00 100 09/22/16 11:01 108 16 40 09/22/16 11:00 106 26 133/85 98 Mechanical Ventilator 40 09/22/16 10:00 109 28 117/85 99 Mechanical Ventilator 40 09/22/16 09:13 109 16 40 09/22/16 09:00 106 26 114/87 100 Mechanical Ventilator 40 Height (Feet): 6 Height (Inches): 2.00 Weight (Pounds): 127 General Appearance: other - intubated Respiratory/Chest: decreased breath sounds Cardiovascular: normal rate, regular rhythm Abdomen: normal bowel sounds, soft, non tender, non distended Microbiology Date/Time Source Procedure Growth Status 09/20/16 18:30 Blood Blood Culture - Preliminary NO GROWTH AFTER 48 HOURS Resulted 09/20/16 18:15 Blood Blood Culture - Preliminary NO GROWTH AFTER 48 HOURS Resulted 09/21/16 09:24 Nasopharynx Influenza Types A,B Antigen (JACINTA) - Final Complete 09/20/16 18:49 Rectum VRE Culture - Final NO VANCOMYCIN RESISTANT ENTEROCOCCUS ... Complete Laboratory Tests Test 09/22/16 19:49 09/22/16 22:05 09/23/16 04:10 Arterial Blood pH 7.105 (7.350-7.450) 7.348 (7.350-7.450) Arterial Blood Partial Pressure CO2 148.2 mmHg (35.0-45.0) *H 66.4 mmHg (35.0-45.0) *H Arterial Blood Partial Pressure O2 501.2 mmHg (75.0-100.0) H 510.1 mmHg (75.0-100.0) H Arterial Blood HCO3 45.5 mmol/L (22.0-26.0) H 35.7 mmol/L (22.0-26.0) H Arterial Blood Oxygen Saturation 99.7 % (92.0-98.0) H 99.8 % (92.0-98.0) H Arterial Blood Base Excess 11.4 8.1 Joseluis Test Positive Positive White Blood Count 11.1 K/UL (4.8-10.8) H Red Blood Count 3.31 M/UL (4.70-6.10) L Hemoglobin 9.3 G/DL (14.2-18.0) L Hematocrit 30.2 % (42.0-52.0) L Mean Corpuscular Volume 91 FL (80-99) Mean Corpuscular Hemoglobin 28.0 PG (27.0-31.0) Mean Corpuscular Hemoglobin Concent 30.6 G/DL (32.0-36.0) L Red Cell Distribution Width 15.5 % (11.6-14.8) H Platelet Count 382 K/UL (150-450) Mean Platelet Volume 6.7 FL (6.5-10.1) Neutrophils (%) (Auto) 82.7 % (45.0-75.0) H Lymphocytes (%) (Auto) 7.7 % (20.0-45.0) L Monocytes (%) (Auto) 8.6 % (1.0-10.0) Eosinophils (%) (Auto) 0.0 % (0.0-3.0) Basophils (%) (Auto) 1.0 % (0.0-2.0) Sodium Level 150 mEQ/L (135-145) H Potassium Level 4.6 mEQ/L (3.4-4.9) Chloride Level 106 mEQ/L (98-107) Carbon Dioxide Level 33 mEQ/L (20-30) H Anion Gap 11 (5-15) Blood Urea Nitrogen 18 mg/dL (7-23) Creatinine 0.7 mg/dL (0.7-1.2) Estimat Glomerular Filtration Rate > 60 mL/min (>60) Glucose Level 88 mg/dL (74-106) Calcium Level 9.3 mg/dL (8.6-10.2) Current Medications Medications (Trade) Dose Ordered Sig/Shraddha Route PRN Reason Start Time Stop Time Status Last Admin Dose Admin Acetaminophen (Tylenol) 650 mg Q4H PRN ORAL fever>100.5 09/20/16 18:30 10/20/16 18:29 Albuterol/ Ipratropium 3 ml 3 ml Q4H PRN HHN Shortness of Breath 09/20/16 18:30 09/25/16 18:29 Amikacin Sulfate/ Sodium Chloride (Amikin/Sodium Chloride) 114 ml @ 114 mls/hr Q36H IV 09/22/16 12:00 09/29/16 11:59 09/22/16 12:00 Dextrose (Dextrose 50%) STAT PRN IV Hypoglycemia 09/21/16 16:45 10/21/16 16:44 Ertapenem/Sodium Chloride (INVanz/Sodium Chloride) 55 ml @ 110 mls/hr Q24H IV 09/20/16 21:00 09/25/16 20:59 09/22/16 20:43 Heparin Sodium (Porcine) (Heparin 5000 units/ml) 5,000 units EVERY 12 HOURS SUBQ 09/20/16 21:00 10/20/16 20:59 09/22/16 20:44 Insulin Aspart (NovoLOG) start when feeding started Q6HR SUBQ 09/21/16 18:00 10/21/16 17:59 09/22/16 23:35 Lorazepam 2 mg 2 mg Q2H PRN IV For Anxiety 09/20/16 18:30 09/27/16 18:29 09/22/16 23:20 Methylprednisolone Sodium Succinate (Solu-MEDROL) 40 mg Q8HR IVP 09/23/16 06:00 10/23/16 05:59 09/23/16 05:40 Morphine Sulfate (Morphine Sulfate) 4 mg Q4H PRN IVP Severe Pain (Pain Scale 7-10) 09/20/16 18:30 09/27/16 18:29 09/22/16 21:50 Norepinephrine Bitartrate 4 mg/ Dextrose 254 ml @ 0 mls/hr Q24H IV 09/20/16 21:00 10/20/16 20:59 Ondansetron HCl (Zofran) 4 mg Q6H PRN IVP Nausea & Vomiting 09/20/16 18:30 10/20/16 18:29 Polyethylene Glycol (Miralax) 17 gm DAILYPRN PRN ORAL Constipation 09/20/16 18:30 10/20/16 18:29 Sodium Chloride (Sodium Chloride 1000ml bag) 1,000 ml @ 100 mls/hr Q10H IVLG 09/20/16 19:00 10/20/16 18:59 09/22/16 20:43 NAOMI GEORGE 20, 2017 08:08
--- NOTE | 2016-09-23 08:12 | Diagnostic Imaging Report ---
Indication: Dyspnea Comparison: 09/20/16 A single view chest radiograph was obtained. Findings: Endotracheal tube and nasogastric tube positions are satisfactory. The lungs are hyperexpanded. Heart size is normal. Bones are unremarkable. Impression: COPD
[2016-09-23] MEDS: LORazepam Inj 2mg/ml 1ml IV PRN ×3 (08:38→17:48)
[2016-09-23 09:15] LABS: ABG ALLEN TEST POSITIVE; ABG BASE EXCESS 13.1
[2016-09-23] MEDS: Heparin 5000 units/ml inj SUBQ SCH ×2 (09:28→21:10)
--- NOTE | 2016-09-23 11:20 | Diagnostic Imaging Report ---
Indication: Status post intubation Technique: One view of the chest Comparison: 11 hours earlier Findings: Interim endotracheal intubation, endotracheal tube tip in good position, approximately 8 cm above the suellen. Lungs remain hyperinflated. The heart size is normal. Impression: Satisfactory endotracheal intubation Hyperinflation, consistent with COPD This agrees with the preliminary interpretation provided by the emergency room physician
--- NOTE | 2016-09-23 11:29 | Pulmonolgy Critical Care Note ---
Critical Care - Asmt/Plan Problems: (1) Respiratory failure (2) COPD exacerbation (3) Pneumonia (4) Altered mental status Respiratory: monitor respiratory rate, adjust FIO2, CXR Cardiac: continue pressors, continue to monitor HR/BP Renal: F/U I&O Infectious Disease: check cultures, continue antibiotics Gastrointestinal: continue feedings/current rate Endocrine: monitor blood sugar, check HgA1C, continue sliding scale insulin Hematologic: monitor H/H, transfuse if hgb<8.5 Neurologic: PRN Ativan, keep patient comfortable Affect: PRN ativan Prophylaxis: Protonix Disposition: keep in ICU Notes Reviewed: provider relations specialist, cardio 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, consultants, wrapper casermedical services manager - Objective Last 24 Hour Vital Signs Date Time Temp Pulse Resp B/P Pulse Ox O2 Delivery O2 Flow Rate FiO2 09/23/16 11:12 109 16 40 09/23/16 11:00 107 16 110/89 100 Mechanical Ventilator 40 09/23/16 10:00 103 16 92/74 100 Mechanical Ventilator 40 09/23/16 09:06 108 16 40 09/23/16 09:00 109 16 98/81 100 Mechanical Ventilator 40 09/23/16 08:00 109 09/23/16 08:00 98.1 109 16 125/94 100 Mechanical Ventilator 40 09/23/16 07:01 105 16 40 09/23/16 07:00 107 16 97/78 100 Mechanical Ventilator 40 09/23/16 07:00 105 16 Mechanical Ventilator 100 09/23/16 06:00 107 16 117/81 100 Mechanical Ventilator 40 09/23/16 05:15 109 16 40 09/23/16 05:00 109 16 117/81 100 Mechanical Ventilator 40 09/23/16 04:00 98.1 104 16 116/88 100 Mechanical Ventilator 40 09/23/16 04:00 107 09/23/16 03:06 108 16 40 09/23/16 03:00 107 16 104/87 100 Mechanical Ventilator 40 09/23/16 02:00 105 16 117/84 100 Mechanical Ventilator 40 09/23/16 01:22 110 16 40 09/23/16 01:00 108 16 94/74 100 Mechanical Ventilator 40 09/23/16 00:00 120 09/23/16 00:00 97.9 114 16 91/78 100 Mechanical Ventilator 40 09/22/16 23:23 121 16 40 09/22/16 23:00 120 16 91/78 100 Mechanical Ventilator 40 09/22/16 22:00 121 16 80/58 100 Mechanical Ventilator 40 09/22/16 21:22 134 24 Mechanical Ventilator 100 09/22/16 21:00 136 27 179/113 100 Mechanical Ventilator 40 09/22/16 21:00 114/79 09/22/16 20:00 98.1 124 23 141/81 100 Bi-pap 30 09/22/16 20:00 121 09/22/16 19:13 120 22 Non-Rebreather 15.0 100 09/22/16 19:00 124 27 123/75 100 Non-Rebreather 100 09/22/16 18:00 128 24 145/73 100 Non-Rebreather 100 09/22/16 17:40 Non-Rebreather 100 09/22/16 17:15 15.0 09/22/16 17:00 104 18 113/82 100 Mechanical Ventilator 30 09/22/16 16:33 103 16 40 09/22/16 16:00 109 09/22/16 16:00 98.4 109 18 107/78 99 Mechanical Ventilator 40 09/22/16 16:00 30 09/22/16 15:12 104 16 40 09/22/16 14:00 96 26 106/83 98 Mechanical Ventilator 40 09/22/16 13:30 106 16 40 09/22/16 13:00 96 26 96/76 98 Mechanical Ventilator 40 09/22/16 13:00 100 26 100/73 98 Mechanical Ventilator 40 09/22/16 12:00 40 09/22/16 12:00 98.0 101 25 112/76 98 Mechanical Ventilator 40 09/22/16 12:00 100 Status: awake, sedated Neck: full ROM Abdomen: soft, non-tender, active bowel sounds Extremities: no C/C/E, edema Decubiti: location Micro: Microbiology Date/Time Source Procedure Growth Status 09/20/16 18:30 Blood Blood Culture - Preliminary NO GROWTH AFTER 48 HOURS Resulted 09/20/16 18:15 Blood Blood Culture - Preliminary NO GROWTH AFTER 48 HOURS Resulted 09/21/16 09:24 Nasopharynx Influenza Types A,B Antigen (JACINTA) - Final Complete 09/20/16 18:49 Nasal Nares MRSA Culture - Final NO METHICILLIN RESISTANT STAPH AUREUS... Complete 09/20/16 18:49 Rectum VRE Culture - Final NO VANCOMYCIN RESISTANT ENTEROCOCCUS ... Complete Accucheck: 100 Critical Care - Subjective ROS Limited/Unobtainable: Yes ICU Day: 3 Intubation Day: 3 Condition: critical EKG Rhythm: Sinus Rhythm FI02: 40 Vent Support Breath Rate: 16 Vent Support Mode: AC Vent Tidal Volume: 600 Sputum Amount: Small PEEP: 5.0 PIP: 31 Tube Feeding Amount: 30 I&O: Intake and Output 09/22/16 09/23/16 19:00 07:00 Intake Total 1494 ml 1450 ml Output Total 445 ml 445 ml Balance 1049 ml 1005 ml Free Water 110 ml IV Total 1114 ml 1300 ml Tube Feeding 270 ml 150 ml Output Urine Total 445 ml 445 ml # Bowel Movements 4 CXR: hyperinflated ET-Tube: 8.0 ET Position: 24 Labs: Laboratory Tests Test 09/22/16 19:49 09/22/16 22:05 09/23/16 04:10 09/23/16 09:00 Arterial Blood pH 7.105 (7.350-7.450) 7.348 (7.350-7.450) 7.440 (7.350-7.450) Arterial Blood Partial Pressure CO2 148.2 mmHg (35.0-45.0) *H 66.4 mmHg (35.0-45.0) *H 59.0 mmHg (35.0-45.0) *H Arterial Blood Partial Pressure O2 501.2 mmHg (75.0-100.0) H 510.1 mmHg (75.0-100.0) H 198.2 mmHg (75.0-100.0) H Arterial Blood HCO3 45.5 mmol/L (22.0-26.0) H 35.7 mmol/L (22.0-26.0) H 39.3 mmol/L (22.0-26.0) H Arterial Blood Oxygen Saturation 99.7 % (92.0-98.0) H 99.8 % (92.0-98.0) H 99.1 % (92.0-98.0) H Arterial Blood Base Excess 11.4 8.1 13.1 Joseluis Test Positive Positive Positive White Blood Count 11.1 K/UL (4.8-10.8) H Red Blood Count 3.31 M/UL (4.70-6.10) L Hemoglobin 9.3 G/DL (14.2-18.0) L Hematocrit 30.2 % (42.0-52.0) L Mean Corpuscular Volume 91 FL (80-99) Mean Corpuscular Hemoglobin 28.0 PG (27.0-31.0) Mean Corpuscular Hemoglobin Concent 30.6 G/DL (32.0-36.0) L Red Cell Distribution Width 15.5 % (11.6-14.8) H Platelet Count 382 K/UL (150-450) Mean Platelet Volume 6.7 FL (6.5-10.1) Neutrophils (%) (Auto) 82.7 % (45.0-75.0) H Lymphocytes (%) (Auto) 7.7 % (20.0-45.0) L Monocytes (%) (Auto) 8.6 % (1.0-10.0) Eosinophils (%) (Auto) 0.0 % (0.0-3.0) Basophils (%) (Auto) 1.0 % (0.0-2.0) Sodium Level 150 mEQ/L (135-145) H Potassium Level 4.6 mEQ/L (3.4-4.9) Chloride Level 106 mEQ/L (98-107) Carbon Dioxide Level 33 mEQ/L (20-30) H Anion Gap 11 (5-15) Blood Urea Nitrogen 18 mg/dL (7-23) Creatinine 0.7 mg/dL (0.7-1.2) Estimat Glomerular Filtration Rate > 60 mL/min (>60) Glucose Level 88 mg/dL (74-106) Calcium Level 9.3 mg/dL (8.6-10.2) REN WRIGHT Sep 23, 2016 11:29
--- NOTE | 2016-09-23 11:59 | Diagnostic Imaging Report ---
Indication: SOB Technique: One view of the chest Comparison: 09/22/2016 Findings: Lungs remain hyperinflated. Stable satisfactory position of endotracheal tube. Normal heart size. Findings are unchanged Impression: Unchanged, over one day, findings as above.
[2016-09-23] MEDS ORDERED: Succinylcholine 20mg/ml 10ml vial ONE (15:16)
--- NOTE | 2016-09-23 19:48 | Internal Med Progress Note ---
Subjective Date of Service: Sep 23, 2016 Physician Name Tadeo Verdin Attending Physician Steve Rader MD Current Medications Medications (Trade) Dose Ordered Sig/Shraddha Route PRN Reason Start Time Stop Time Status Last Admin Dose Admin Acetaminophen (Tylenol) 650 mg Q4H PRN ORAL fever>100.5 09/20/16 18:30 10/20/16 18:29 Albuterol/ Ipratropium 3 ml 3 ml Q4H PRN HHN Shortness of Breath 09/20/16 18:30 09/25/16 18:29 Amikacin Sulfate/ Sodium Chloride (Amikin/Sodium Chloride) 114 ml @ 114 mls/hr Q36H IV 09/22/16 12:00 09/29/16 11:59 09/22/16 12:00 Dextrose (Dextrose 50%) STAT PRN IV Hypoglycemia 09/21/16 16:45 10/21/16 16:44 Ertapenem/Sodium Chloride (INVanz/Sodium Chloride) 55 ml @ 110 mls/hr Q24H IV 09/20/16 21:00 09/25/16 20:59 09/22/16 20:43 Heparin Sodium (Porcine) (Heparin 5000 units/ml) 5,000 units EVERY 12 HOURS SUBQ 09/20/16 21:00 10/20/16 20:59 09/23/16 09:28 Insulin Aspart (NovoLOG) start when feeding started Q6HR SUBQ 09/21/16 18:00 10/21/16 17:59 09/23/16 16:58 Lorazepam 2 mg 2 mg Q2H PRN IV For Anxiety 09/20/16 18:30 09/27/16 18:29 09/23/16 17:48 Methylprednisolone Sodium Succinate (Solu-MEDROL) 40 mg Q8HR IVP 09/23/16 06:00 10/23/16 05:59 09/23/16 14:30 Morphine Sulfate (Morphine Sulfate) 4 mg Q4H PRN IVP Severe Pain (Pain Scale 7-10) 09/20/16 18:30 09/27/16 18:29 09/22/16 21:50 Norepinephrine Bitartrate 4 mg/ Dextrose 254 ml @ 0 mls/hr Q24H IV 09/20/16 21:00 10/20/16 20:59 Ondansetron HCl (Zofran) 4 mg Q6H PRN IVP Nausea & Vomiting 09/20/16 18:30 10/20/16 18:29 Polyethylene Glycol (Miralax) 17 gm DAILYPRN PRN ORAL Constipation 09/20/16 18:30 10/20/16 18:29 Allergies: Coded Allergies: No Known Allergies (Unverified , 06/17/16) ROS Limited/Unobtainable: Yes Subjective 66 YO M admitted with respiratory failure. ICU. Intubated and sedated. Cover for Int Wilder-Dr Rader. Objective Last Vital Signs Date Time Temp Pulse Resp B/P Pulse Ox O2 Delivery O2 Flow Rate FiO2 09/23/16 19:22 112 16 30 09/23/16 19:00 93/76 100 Mechanical Ventilator 09/23/16 16:00 98.2 09/22/16 19:13 15.0 Laboratory Tests Test 09/22/16 19:49 09/22/16 22:05 09/23/16 04:10 09/23/16 09:00 Arterial Blood pH 7.105 (7.350-7.450) 7.348 (7.350-7.450) 7.440 (7.350-7.450) Arterial Blood Partial Pressure CO2 148.2 mmHg (35.0-45.0) *H 66.4 mmHg (35.0-45.0) *H 59.0 mmHg (35.0-45.0) *H Arterial Blood Partial Pressure O2 501.2 mmHg (75.0-100.0) H 510.1 mmHg (75.0-100.0) H 198.2 mmHg (75.0-100.0) H Arterial Blood HCO3 45.5 mmol/L (22.0-26.0) H 35.7 mmol/L (22.0-26.0) H 39.3 mmol/L (22.0-26.0) H Arterial Blood Oxygen Saturation 99.7 % (92.0-98.0) H 99.8 % (92.0-98.0) H 99.1 % (92.0-98.0) H Arterial Blood Base Excess 11.4 8.1 13.1 Joseluis Test Positive Positive Positive White Blood Count 11.1 K/UL (4.8-10.8) H Red Blood Count 3.31 M/UL (4.70-6.10) L Hemoglobin 9.3 G/DL (14.2-18.0) L Hematocrit 30.2 % (42.0-52.0) L Mean Corpuscular Volume 91 FL (80-99) Mean Corpuscular Hemoglobin 28.0 PG (27.0-31.0) Mean Corpuscular Hemoglobin Concent 30.6 G/DL (32.0-36.0) L Red Cell Distribution Width 15.5 % (11.6-14.8) H Platelet Count 382 K/UL (150-450) Mean Platelet Volume 6.7 FL (6.5-10.1) Neutrophils (%) (Auto) 82.7 % (45.0-75.0) H Lymphocytes (%) (Auto) 7.7 % (20.0-45.0) L Monocytes (%) (Auto) 8.6 % (1.0-10.0) Eosinophils (%) (Auto) 0.0 % (0.0-3.0) Basophils (%) (Auto) 1.0 % (0.0-2.0) Sodium Level 150 mEQ/L (135-145) H Potassium Level 4.6 mEQ/L (3.4-4.9) Chloride Level 106 mEQ/L (98-107) Carbon Dioxide Level 33 mEQ/L (20-30) H Anion Gap 11 (5-15) Blood Urea Nitrogen 18 mg/dL (7-23) Creatinine 0.7 mg/dL (0.7-1.2) Estimat Glomerular Filtration Rate > 60 mL/min (>60) Glucose Level 88 mg/dL (74-106) Calcium Level 9.3 mg/dL (8.6-10.2) Microbiology Date/Time Source Procedure Growth Status 09/21/16 09:24 Nasopharynx Influenza Types A,B Antigen (JACINTA) - Final Complete Intake and Output 09/22/16 09/23/16 19:00 07:00 Intake Total 1494 ml 1450 ml Output Total 445 ml 445 ml Balance 1049 ml 1005 ml Free Water 110 ml IV Total 1114 ml 1300 ml Tube Feeding 270 ml 150 ml Output Urine Total 445 ml 445 ml # Bowel Movements 4 Objective General Appearance: moderate distress, thin EENT: PERRL/EOMI, normal ENT inspection Neck: non-tender, normal alignment, supple Cardiovascular: normal peripheral pulses, normal rate, regular rhythm, no gallop/murmur, no JVD Respiratory/Chest: Mech Vent; respiratory distress, crackles/rales, rhonchi - bilaterally, expiratory wheezing Abdomen: non tender, soft, no organomegaly, no mass, decreased bowel sounds Extremities: normal range of motion Skin: normal pigmentation, warm/dry Assessment/Plan Problem List: (1) Lung nodule (2) DVT (deep venous thrombosis) (3) Acute respiratory failure Assessment & Plan: Cont vent per pulmonary (4) COPD exacerbation Assessment & Plan: Continue IV solumedrol and duoneb. Continue vent per pulmonary. (5) Pneumonia Assessment & Plan: Cont ertapenem and amikacin per ID Status: not improved TADEO VERDIN Sep 23, 2016 19:48
[2016-09-23] MEDS: Ertapenem 1 GM in NS 55 ML IV SCH (21:07)
[2016-09-24] VITALS (24 sets, daily range): BP systolic 90–141; BP diastolic 53–100
[2016-09-24] MEDS: Amikacin 1,000 MG in NS 110 ML IV SCH (00:49)
[2016-09-24] MEDS: NovoLOG Insulin Flexpen SUBQ SCH ×5 (00:50→23:58)
[2016-09-24] MEDS: LORazepam Inj 2mg/ml 1ml IV PRN ×3 (04:59→22:44)
[2016-09-24] MEDS: Solu-MEDROL 40mg Inj IVP SCH ×2 (06:24→20:51)
[2016-09-24 06:45] LABS: ALANINE AMINOTRANSFERASE 30 U/L (3-41); ALBUMIN/GLOBULIN RATIO 0.8 (1.0-2.7); ANION GAP 9 (5-15); ASPARTATE AMINO TRANSFERASE 14 U/L (5-40); CALCIUM 9.6 mg/dL (8.6-10.2); CARBON DIOXIDE 35 mEQ/L (20-30); CHLORIDE 104 mEQ/L (98-107); CREATININE 0.8 mg/dL (0.7-1.2); GLOMERULAR FILTRATION RATE > 60 mL/min (>60); HEMOLYSIS 3; MAGNESIUM 2.2 mg/dL (1.7-2.5); PHOSPHORUS 3.7 mg/dL (2.5-4.8); SODIUM 148 mEQ/L (135-145); TOTAL PROTEIN 6.3 g/dL (6.6-8.7)
[2016-09-24 07:42] LABS: ABG ALLEN TEST POSITIVE; ABG BASE EXCESS 14
--- NOTE | 2016-09-24 08:49 | Infectious Diseases Prog Note ---
Assessment/Plan Assessment/Plan ASSESSMENT: 66 y/o male with: // COPD exacerbation r/o HCAP - SCx pending - CXR 09/22: No infiltrate seen. Lungs are hyperexpanded. - negative: influenza // Leukocytosis - recurrent, mild, afebrile. Repeat CBC pending ( on steroids ) // Acute VDRF - intubated 09/20 // Severe pulmonary HTN / grade I diastolic dysfunction / mod TR // Pulmonary nodules // Chronic RLE DVT // Tobacco abuse // [facility] resident // Negative MRSA, VRE screens // NKDA // Full Code PLAN: - continue empiric broad spectrum amikacin, invanz d# 5 / 5-7 ( 09/21 SP IV vancomycin d# 2 ) - taper steroids per pulm - f/u cultures - monitor CBC, temperatures - monitor BMP - monitor CXR - vent support, wean as tolerated Subjective Allergies: Coded Allergies: No Known Allergies (Unverified , 06/17/16) Subjective remains afebrile on vent Objective Vital Signs Last 24 Hour Vital Signs Date Time Temp Pulse Resp B/P Pulse Ox O2 Delivery O2 Flow Rate FiO2 09/24/16 08:00 103 09/24/16 08:00 97.6 103 16 112/87 100 Mechanical Ventilator 40 09/24/16 07:00 105 16 123/82 100 Mechanical Ventilator 40 09/24/16 06:55 108 16 30 09/24/16 06:00 104 16 116/81 100 Mechanical Ventilator 40 09/24/16 05:27 110 16 30 09/24/16 05:00 111 16 130/100 100 Mechanical Ventilator 40 09/24/16 04:00 98.5 105 17 126/88 100 Mechanical Ventilator 40 09/24/16 04:00 106 09/24/16 03:00 110 16 114/84 100 Mechanical Ventilator 40 09/24/16 02:46 107 16 30 09/24/16 02:00 108 16 108/82 100 Mechanical Ventilator 40 09/24/16 01:11 92 16 30 09/24/16 01:00 111 16 96/82 100 Mechanical Ventilator 40 09/24/16 00:00 115 09/24/16 00:00 98.6 110 16 126/85 100 Mechanical Ventilator 40 09/23/16 23:00 112 16 105/76 100 Mechanical Ventilator 40 09/23/16 22:44 110 16 30 09/23/16 22:00 112 16 105/76 100 Mechanical Ventilator 40 09/23/16 21:18 114 16 30 09/23/16 21:00 113 20 105/76 100 Mechanical Ventilator 40 09/23/16 21:00 114/81 09/23/16 20:00 98.6 104 18 93/80 100 Mechanical Ventilator 40 09/23/16 20:00 111 09/23/16 19:22 112 16 30 09/23/16 19:00 113 16 93/76 100 Mechanical Ventilator 40 09/23/16 18:00 113 16 114/88 95 Mechanical Ventilator 40 09/23/16 17:09 107 16 30 09/23/16 17:00 109 16 109/84 100 Mechanical Ventilator 40 09/23/16 16:00 98.2 115 16 131/96 97 Mechanical Ventilator 40 09/23/16 16:00 115 09/23/16 15:08 106 16 30 09/23/16 15:00 118 24 126/86 98 Mechanical Ventilator 40 09/23/16 14:00 109 16 101/84 100 Mechanical Ventilator 40 09/23/16 13:03 107 16 40 09/23/16 13:00 110 16 143/73 100 Mechanical Ventilator 40 09/23/16 12:00 107 09/23/16 12:00 98.3 107 16 96/84 100 Mechanical Ventilator 40 09/23/16 11:12 109 16 40 09/23/16 11:00 107 16 110/89 100 Mechanical Ventilator 40 09/23/16 10:00 103 16 92/74 100 Mechanical Ventilator 40 09/23/16 09:06 108 16 40 09/23/16 09:00 109 16 98/81 100 Mechanical Ventilator 40 Height (Feet): 6 Height (Inches): 2.00 Weight (Pounds): 127 General Appearance: other - intubated Respiratory/Chest: no respiratory distress Cardiovascular: normal rate, regular rhythm Abdomen: normal bowel sounds, soft, non tender, non distended Microbiology Date/Time Source Procedure Growth Status 09/21/16 09:24 Nasopharynx Influenza Types A,B Antigen (JACINTA) - Final Complete Laboratory Tests Test 09/23/16 09:00 09/24/16 05:00 09/24/16 07:28 Arterial Blood pH 7.440 (7.350-7.450) 7.480 (7.350-7.450) Arterial Blood Partial Pressure CO2 59.0 mmHg (35.0-45.0) *H 53.0 mmHg (35.0-45.0) H Arterial Blood Partial Pressure O2 198.2 mmHg (75.0-100.0) H 95.0 mmHg (75.0-100.0) Arterial Blood HCO3 39.3 mmol/L (22.0-26.0) H 39.0 mmol/L (22.0-26.0) H Arterial Blood Oxygen Saturation 99.1 % (92.0-98.0) H 97.0 % (92.0-98.0) Arterial Blood Base Excess 13.1 14 Joseluis Test Positive Positive Sodium Level 148 mEQ/L (135-145) H Potassium Level 4.0 mEQ/L (3.4-4.9) Chloride Level 104 mEQ/L (98-107) Carbon Dioxide Level 35 mEQ/L (20-30) H Anion Gap 9 (5-15) Blood Urea Nitrogen 19 mg/dL (7-23) Creatinine 0.8 mg/dL (0.7-1.2) Estimat Glomerular Filtration Rate > 60 mL/min (>60) Glucose Level 145 mg/dL (74-106) H Calcium Level 9.6 mg/dL (8.6-10.2) Phosphorus Level 3.7 mg/dL (2.5-4.8) Magnesium Level 2.2 mg/dL (1.7-2.5) Total Bilirubin < 0.2 mg/dL (0.0-1.2) Aspartate Amino Transf (AST/SGOT) 14 U/L (5-40) Alanine Aminotransferase (ALT/SGPT) 30 U/L (3-41) Alkaline Phosphatase 93 U/L (40-129) Total Protein 6.3 g/dL (6.6-8.7) L Albumin 2.9 g/dL (3.5-5.2) L Globulin 3.4 g/dL Albumin/Globulin Ratio 0.8 (1.0-2.7) L Current Medications Medications (Trade) Dose Ordered Sig/Shraddha Route PRN Reason Start Time Stop Time Status Last Admin Dose Admin Acetaminophen (Tylenol) 650 mg Q4H PRN ORAL fever>100.5 09/20/16 18:30 10/20/16 18:29 Albuterol/ Ipratropium 3 ml 3 ml Q4H PRN HHN Shortness of Breath 09/20/16 18:30 09/25/16 18:29 Amikacin Sulfate/ Sodium Chloride (Amikin/Sodium Chloride) 114 ml @ 114 mls/hr Q36H IV 09/22/16 12:00 09/29/16 11:59 09/24/16 00:49 Dextrose (Dextrose 50%) STAT PRN IV Hypoglycemia 09/21/16 16:45 10/21/16 16:44 Ertapenem/Sodium Chloride (INVanz/Sodium Chloride) 55 ml @ 110 mls/hr Q24H IV 09/20/16 21:00 09/25/16 20:59 09/23/16 21:07 Heparin Sodium (Porcine) (Heparin 5000 units/ml) 5,000 units EVERY 12 HOURS SUBQ 09/20/16 21:00 10/20/16 20:59 09/23/16 21:10 Insulin Aspart (NovoLOG) start when feeding started Q6HR SUBQ 09/21/16 18:00 10/21/16 17:59 09/24/16 06:25 Lorazepam 2 mg 2 mg Q2H PRN IV For Anxiety 09/20/16 18:30 09/27/16 18:29 09/24/16 04:59 Methylprednisolone Sodium Succinate (Solu-MEDROL) 40 mg Q8HR IVP 09/23/16 06:00 10/23/16 05:59 09/24/16 06:24 Morphine Sulfate (Morphine Sulfate) 4 mg Q4H PRN IVP Severe Pain (Pain Scale 7-10) 09/20/16 18:30 09/27/16 18:29 09/22/16 21:50 Norepinephrine Bitartrate 4 mg/ Dextrose 254 ml @ 0 mls/hr Q24H IV 09/20/16 21:00 10/20/16 20:59 Ondansetron HCl (Zofran) 4 mg Q6H PRN IVP Nausea & Vomiting 09/20/16 18:30 10/20/16 18:29 Polyethylene Glycol (Miralax) 17 gm DAILYPRN PRN ORAL Constipation 09/20/16 18:30 10/20/16 18:29 NAOMI GEORGE 21, 2017 08:49
[2016-09-24] MEDS: Heparin 5000 units/ml inj SUBQ SCH ×2 (09:00→21:19)
[2016-09-24 09:28] LABS: MEAN CORPUSCULAR HEMOGLOBIN 27.4 PG (27.0-31.0); MEAN CORPUSCULAR HGB CONC 30.1 G/DL (32.0-36.0); MEAN CORPUSCULAR VOLUME 91 FL (80-99); MEAN PLATELET VOLUME 6.7 FL (6.5-10.1); PLATELET COUNT 370 K/UL (150-450); RED BLOOD COUNT 3.56 M/UL (4.70-6.10); RED CELL DISTRIBUTION WIDTH 15.1 % (11.6-14.8); WHITE BLOOD COUNT 10.3 K/UL (4.8-10.8)
[2016-09-24 10:56] LABS: ANISOCYTOSIS 1+; BAND NEUTROPHILS % (MANUAL) 1 % (0-8); BASOPHILS % (MANUAL) 0 % (0-2); EOSINOPHILS % (MANUAL) 0 % (0-3); LYMPHOCYTES % (MANUAL) 6 % (20-45); NEUTROPHILS % (MANUAL) 85 % (45-75); PLATELET ESTIMATE ADEQUATE; PLATELET MORPHOLOGY NORMAL; TOTAL CELLS COUNTED 100
[2016-09-24 10:57] LABS: HYPOCHROMASIA 2+
--- NOTE | 2016-09-24 11:18 | Pulmonolgy Critical Care Note ---
Critical Care - Asmt/Plan Problems: (1) Respiratory failure (2) COPD exacerbation (3) Pneumonia (4) Altered mental status Respiratory: monitor respiratory rate, adjust FIO2, CXR, other - failed self extubation, will most likely need tracheostomy. Cardiac: continue to monitor HR/BP Renal: F/U I&O, keep IV fluid Infectious Disease: check cultures, other - no sputum yet, blood cultrue negative Gastrointestinal: continue feedings/current rate Endocrine: monitor blood sugar Hematologic: monitor H/H, transfuse if hgb<8.5 Neurologic: PRN Ativan, keep patient comfortable Disposition: keep in ICU Notes Reviewed: short goods drier 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, consultants, case management rnmanager grocery - Objective Last 24 Hour Vital Signs Date Time Temp Pulse Resp B/P Pulse Ox O2 Delivery O2 Flow Rate FiO2 09/24/16 10:45 102 16 30 09/24/16 08:51 107 16 30 09/24/16 08:00 103 09/24/16 08:00 97.6 103 16 112/87 100 Mechanical Ventilator 40 09/24/16 07:00 105 16 123/82 100 Mechanical Ventilator 40 09/24/16 06:55 108 16 30 09/24/16 06:00 104 16 116/81 100 Mechanical Ventilator 40 09/24/16 05:27 110 16 30 09/24/16 05:00 111 16 130/100 100 Mechanical Ventilator 40 09/24/16 04:00 98.5 105 17 126/88 100 Mechanical Ventilator 40 09/24/16 04:00 106 09/24/16 03:00 110 16 114/84 100 Mechanical Ventilator 40 09/24/16 02:46 107 16 30 09/24/16 02:00 108 16 108/82 100 Mechanical Ventilator 40 09/24/16 01:11 92 16 30 09/24/16 01:00 111 16 96/82 100 Mechanical Ventilator 40 09/24/16 00:00 115 09/24/16 00:00 98.6 110 16 126/85 100 Mechanical Ventilator 40 09/23/16 23:00 112 16 105/76 100 Mechanical Ventilator 40 09/23/16 22:44 110 16 30 09/23/16 22:00 112 16 105/76 100 Mechanical Ventilator 40 09/23/16 21:18 114 16 30 09/23/16 21:00 113 20 105/76 100 Mechanical Ventilator 40 09/23/16 21:00 114/81 09/23/16 20:00 98.6 104 18 93/80 100 Mechanical Ventilator 40 09/23/16 20:00 111 09/23/16 19:22 112 16 30 09/23/16 19:00 113 16 93/76 100 Mechanical Ventilator 40 09/23/16 18:00 113 16 114/88 95 Mechanical Ventilator 40 09/23/16 17:09 107 16 30 09/23/16 17:00 109 16 109/84 100 Mechanical Ventilator 40 09/23/16 16:00 98.2 115 16 131/96 97 Mechanical Ventilator 40 09/23/16 16:00 115 09/23/16 15:08 106 16 30 09/23/16 15:00 118 24 126/86 98 Mechanical Ventilator 40 09/23/16 14:00 109 16 101/84 100 Mechanical Ventilator 40 09/23/16 13:03 107 16 40 09/23/16 13:00 110 16 143/73 100 Mechanical Ventilator 40 09/23/16 12:00 107 09/23/16 12:00 98.3 107 16 96/84 100 Mechanical Ventilator 40 Status: sedated Condition: grave HEENT: atraumatic, normocephalic Neck: full ROM Lungs: rales, rhonchi Heart: HR/BP stable Abdomen: soft, non-tender Extremities: no C/C/E, edema Accucheck: 162 Critical Care - Subjective ROS Limited/Unobtainable: No ICU Day: 4 Intubation Day: 4 Condition: critical EKG Rhythm: Sinus Rhythm FI02: 30 Vent Support Breath Rate: 16 Vent Support Mode: AC Vent Tidal Volume: 600 Sputum Amount: Small PEEP: 5.0 PIP: 36 Tube Feeding Amount: 30 I&O: Intake and Output 09/23/16 09/24/16 19:00 07:00 Intake Total 880 ml 594 ml Output Total 430 ml 490 ml Balance 450 ml 104 ml Free Water 120 ml 120 ml IV Total 400 ml 114 ml Tube Feeding 360 ml 360 ml Output Urine Total 430 ml 490 ml # Bowel Movements 2 4 CXR: no change ET-Tube: 8.0 ET Position: 24 Labs: Laboratory Tests Test 09/24/16 05:00 09/24/16 07:28 09/24/16 08:40 Sodium Level 148 mEQ/L (135-145) H Potassium Level 4.0 mEQ/L (3.4-4.9) Chloride Level 104 mEQ/L (98-107) Carbon Dioxide Level 35 mEQ/L (20-30) H Anion Gap 9 (5-15) Blood Urea Nitrogen 19 mg/dL (7-23) Creatinine 0.8 mg/dL (0.7-1.2) Estimat Glomerular Filtration Rate > 60 mL/min (>60) Glucose Level 145 mg/dL (74-106) H Calcium Level 9.6 mg/dL (8.6-10.2) Phosphorus Level 3.7 mg/dL (2.5-4.8) Magnesium Level 2.2 mg/dL (1.7-2.5) Total Bilirubin < 0.2 mg/dL (0.0-1.2) Aspartate Amino Transf (AST/SGOT) 14 U/L (5-40) Alanine Aminotransferase (ALT/SGPT) 30 U/L (3-41) Alkaline Phosphatase 93 U/L (40-129) Total Protein 6.3 g/dL (6.6-8.7) L Albumin 2.9 g/dL (3.5-5.2) L Globulin 3.4 g/dL Albumin/Globulin Ratio 0.8 (1.0-2.7) L Arterial Blood pH 7.480 (7.350-7.450) Arterial Blood Partial Pressure CO2 53.0 mmHg (35.0-45.0) H Arterial Blood Partial Pressure O2 95.0 mmHg (75.0-100.0) Arterial Blood HCO3 39.0 mmol/L (22.0-26.0) H Arterial Blood Oxygen Saturation 97.0 % (92.0-98.0) Arterial Blood Base Excess 14 Joseluis Test Positive White Blood Count 10.3 K/UL (4.8-10.8) Red Blood Count 3.56 M/UL (4.70-6.10) L Hemoglobin 9.8 G/DL (14.2-18.0) L Hematocrit 32.5 % (42.0-52.0) L Mean Corpuscular Volume 91 FL (80-99) Mean Corpuscular Hemoglobin 27.4 PG (27.0-31.0) Mean Corpuscular Hemoglobin Concent 30.1 G/DL (32.0-36.0) L Red Cell Distribution Width 15.1 % (11.6-14.8) H Platelet Count 370 K/UL (150-450) Mean Platelet Volume 6.7 FL (6.5-10.1) Neutrophils (%) (Auto) % (45.0-75.0) Lymphocytes (%) (Auto) % (20.0-45.0) Monocytes (%) (Auto) % (1.0-10.0) Eosinophils (%) (Auto) % (0.0-3.0) Basophils (%) (Auto) % (0.0-2.0) Differential Total Cells Counted 100 Neutrophils % (Manual) 85 % (45-75) H Lymphocytes % (Manual) 6 % (20-45) L Monocytes % (Manual) 8 % (1-10) Eosinophils % (Manual) 0 % (0-3) Basophils % (Manual) 0 % (0-2) Band Neutrophils 1 % (0-8) Platelet Estimate Adequate Platelet Morphology Normal Hypochromasia 2+ Anisocytosis 1+ REN WRIGHT Sep 24, 2016 11:18
--- NOTE | 2016-09-24 11:30 | Diagnostic Imaging Report ---
Indication: DYSPNEA Technique: One view of the chest Comparison: 09/23/2016 Findings: Stable satisfactory positions of endotracheal and nasogastric tubes. Lungs remain hyperinflated. No new infiltrates. Findings are unchanged Impression: Unchanged, over one day, findings as above.
--- NOTE | 2016-09-24 11:37 | Cardiology Report ---
APPROVED REPORT EKG Measurement Heart [id number] Sinus tachycardia Biatrial enlargement Septal infarct, age undetermined Abnormal ECG
[2016-09-24] MEDS ORDERED: D5NS 1000ml IV ONE (16:49)
--- NOTE | 2016-09-24 19:46 | Internal Med Progress Note ---
Subjective Date of Service: Sep 24, 2016 Physician Name Verdin,Tadeo Attending Physician Steve Rader MD Current Medications Medications (Trade) Dose Ordered Sig/Shraddha Route PRN Reason Start Time Stop Time Status Last Admin Dose Admin Acetaminophen (Tylenol) 650 mg Q4H PRN ORAL fever>100.5 09/20/16 18:30 10/20/16 18:29 Albuterol/ Ipratropium 3 ml 3 ml Q4H PRN HHN Shortness of Breath 09/20/16 18:30 09/25/16 18:29 Amikacin Sulfate/ Sodium Chloride (Amikin/Sodium Chloride) 114 ml @ 114 mls/hr Q36H IV 09/22/16 12:00 09/29/16 11:59 09/24/16 00:49 Dextrose (Dextrose 50%) STAT PRN IV Hypoglycemia 09/21/16 16:45 10/21/16 16:44 Ertapenem/Sodium Chloride (INVanz/Sodium Chloride) 55 ml @ 110 mls/hr Q24H IV 09/20/16 21:00 09/26/16 23:59 09/23/16 21:07 Heparin Sodium (Porcine) (Heparin 5000 units/ml) 5,000 units EVERY 12 HOURS SUBQ 09/20/16 21:00 10/20/16 20:59 09/23/16 21:10 Insulin Aspart (NovoLOG) start when feeding started Q6HR SUBQ 09/21/16 18:00 10/21/16 17:59 09/24/16 18:22 Lorazepam 2 mg 2 mg Q2H PRN IV For Anxiety 09/20/16 18:30 09/27/16 18:29 09/24/16 17:56 Methylprednisolone Sodium Succinate (Solu-MEDROL) 40 mg EVERY 12 HOURS IVP 09/24/16 21:00 10/24/16 20:59 Morphine Sulfate (Morphine Sulfate) 4 mg Q4H PRN IVP Severe Pain (Pain Scale 7-10) 09/20/16 18:30 09/27/16 18:29 09/22/16 21:50 Ondansetron HCl (Zofran) 4 mg Q6H PRN IVP Nausea & Vomiting 09/20/16 18:30 10/20/16 18:29 Polyethylene Glycol (Miralax) 17 gm DAILYPRN PRN ORAL Constipation 09/20/16 18:30 10/20/16 18:29 Allergies: Coded Allergies: No Known Allergies (Unverified , 06/17/16) ROS Limited/Unobtainable: Yes Subjective 66 YO M admitted with respiratory failure. ICU. Intubated and sedated. Cover for Stanislav Rader. Objective Last Vital Signs Date Time Temp Pulse Resp B/P Pulse Ox O2 Delivery O2 Flow Rate FiO2 09/24/16 16:40 106 16 30 09/24/16 15:00 141/100 100 Mechanical Ventilator 09/24/16 13:00 97.3 09/22/16 19:13 15.0 Laboratory Tests Test 09/24/16 05:00 09/24/16 07:28 09/24/16 08:40 Sodium Level 148 mEQ/L (135-145) H Potassium Level 4.0 mEQ/L (3.4-4.9) Chloride Level 104 mEQ/L (98-107) Carbon Dioxide Level 35 mEQ/L (20-30) H Anion Gap 9 (5-15) Blood Urea Nitrogen 19 mg/dL (7-23) Creatinine 0.8 mg/dL (0.7-1.2) Estimat Glomerular Filtration Rate > 60 mL/min (>60) Glucose Level 145 mg/dL (74-106) H Calcium Level 9.6 mg/dL (8.6-10.2) Phosphorus Level 3.7 mg/dL (2.5-4.8) Magnesium Level 2.2 mg/dL (1.7-2.5) Total Bilirubin < 0.2 mg/dL (0.0-1.2) Aspartate Amino Transf (AST/SGOT) 14 U/L (5-40) Alanine Aminotransferase (ALT/SGPT) 30 U/L (3-41) Alkaline Phosphatase 93 U/L (40-129) Total Protein 6.3 g/dL (6.6-8.7) L Albumin 2.9 g/dL (3.5-5.2) L Globulin 3.4 g/dL Albumin/Globulin Ratio 0.8 (1.0-2.7) L Arterial Blood pH 7.480 (7.350-7.450) Arterial Blood Partial Pressure CO2 53.0 mmHg (35.0-45.0) H Arterial Blood Partial Pressure O2 95.0 mmHg (75.0-100.0) Arterial Blood HCO3 39.0 mmol/L (22.0-26.0) H Arterial Blood Oxygen Saturation 97.0 % (92.0-98.0) Arterial Blood Base Excess 14 Joseluis Test Positive White Blood Count 10.3 K/UL (4.8-10.8) Red Blood Count 3.56 M/UL (4.70-6.10) L Hemoglobin 9.8 G/DL (14.2-18.0) L Hematocrit 32.5 % (42.0-52.0) L Mean Corpuscular Volume 91 FL (80-99) Mean Corpuscular Hemoglobin 27.4 PG (27.0-31.0) Mean Corpuscular Hemoglobin Concent 30.1 G/DL (32.0-36.0) L Red Cell Distribution Width 15.1 % (11.6-14.8) H Platelet Count 370 K/UL (150-450) Mean Platelet Volume 6.7 FL (6.5-10.1) Neutrophils (%) (Auto) % (45.0-75.0) Lymphocytes (%) (Auto) % (20.0-45.0) Monocytes (%) (Auto) % (1.0-10.0) Eosinophils (%) (Auto) % (0.0-3.0) Basophils (%) (Auto) % (0.0-2.0) Differential Total Cells Counted 100 Neutrophils % (Manual) 85 % (45-75) H Lymphocytes % (Manual) 6 % (20-45) L Monocytes % (Manual) 8 % (1-10) Eosinophils % (Manual) 0 % (0-3) Basophils % (Manual) 0 % (0-2) Band Neutrophils 1 % (0-8) Platelet Estimate Adequate Platelet Morphology Normal Hypochromasia 2+ Anisocytosis 1+ Intake and Output 09/23/16 09/24/16 19:00 07:00 Intake Total 880 ml 594 ml Output Total 430 ml 490 ml Balance 450 ml 104 ml Free Water 120 ml 120 ml IV Total 400 ml 114 ml Tube Feeding 360 ml 360 ml Output Urine Total 430 ml 490 ml # Bowel Movements 2 4 Objective General Appearance: moderate distress, thin EENT: PERRL/EOMI, normal ENT inspection Neck: non-tender, normal alignment, supple Cardiovascular: normal peripheral pulses, normal rate, regular rhythm, no gallop/murmur, no JVD Respiratory/Chest: Mech Vent; respiratory distress, crackles/rales, rhonchi - bilaterally, expiratory wheezing Abdomen: non tender, soft, no organomegaly, no mass, decreased bowel sounds Extremities: normal range of motion Skin: normal pigmentation, warm/dry Assessment/Plan Problem List: (1) Lung nodule (2) DVT (deep venous thrombosis) (3) Acute respiratory failure Assessment & Plan: Cont vent per pulmonary (4) COPD exacerbation Assessment & Plan: Continue IV solumedrol and duoneb. Continue vent per pulmonary. (5) Pneumonia Assessment & Plan: Cont ertapenem and amikacin per ID Status: not improved TADEO VERDIN Sep 24, 2016 19:46
[2016-09-24] MEDS: Ertapenem 1 GM in NS 55 ML IV SCH (20:51)
[2016-09-25] VITALS (24 sets, daily range): BP systolic 96–125; BP diastolic 51–98
[2016-09-25] MEDS: NovoLOG Insulin Flexpen SUBQ SCH ×4 (05:57→23:41)
[2016-09-25] MEDS: LORazepam Inj 2mg/ml 1ml IV PRN (06:28)
[2016-09-25 06:55] LABS: MEAN CORPUSCULAR HEMOGLOBIN 27.6 PG (27.0-31.0); MEAN CORPUSCULAR HGB CONC 30.4 G/DL (32.0-36.0); MEAN CORPUSCULAR VOLUME 91 FL (80-99); MEAN PLATELET VOLUME 6.5 FL (6.5-10.1); PLATELET COUNT 322 K/UL (150-450); RED CELL DISTRIBUTION WIDTH 15.4 % (11.6-14.8); WHITE BLOOD COUNT 8.7 K/UL (4.8-10.8)
[2016-09-25 07:23] LABS: ALANINE AMINOTRANSFERASE 26 U/L (3-41); ALBUMIN/GLOBULIN RATIO 0.9 (1.0-2.7); ANION GAP 7 (5-15); ASPARTATE AMINO TRANSFERASE 15 U/L (5-40); CALCIUM 9.5 mg/dL (8.6-10.2); CARBON DIOXIDE 37 mEQ/L (20-30); CHLORIDE 107 mEQ/L (98-107); CREATININE 0.7 mg/dL (0.7-1.2); GLOMERULAR FILTRATION RATE > 60 mL/min (>60); HEMOLYSIS 16; MAGNESIUM 2.3 mg/dL (1.7-2.5); PHOSPHORUS 4.5 mg/dL (2.5-4.8); POTASSIUM 4.3 mEQ/L (3.4-4.9); SODIUM 151 mEQ/L (135-145); TOTAL PROTEIN 5.9 g/dL (6.6-8.7)
--- NOTE | 2016-09-25 08:25 | Infectious Diseases Prog Note ---
Assessment/Plan Assessment/Plan ASSESSMENT: 66 y/o male with: // COPD exacerbation r/o HCAP - SCx not sent - CXR 09/24: No infiltrate seen. Lungs are hyperexpanded. Unchanged - negative: influenza // Leukocytosis - resolved, afebrile ( on steroids ) // Acute VDRF - intubated 09/20, may need trach // Severe pulmonary HTN / grade I diastolic dysfunction / mod TR // Pulmonary nodules // Chronic RLE DVT // Tobacco abuse // [facility] resident // Negative MRSA, VRE screens // NKDA // Full Code PLAN: - monitor pt off of ABX ( 09/24 SP amikacin, invanz d# 5 / 5 ) ( 09/21 SP IV vancomycin d# 2 ) - taper steroids per pulm - f/u final cultures - monitor CBC, temperatures - monitor BMP - monitor CXR - vent support, wean as tolerated. May need trach Subjective Allergies: Coded Allergies: No Known Allergies (Unverified , 06/17/16) Subjective remains afebrile on vent Objective Vital Signs Last 24 Hour Vital Signs Date Time Temp Pulse Resp B/P Pulse Ox O2 Delivery O2 Flow Rate FiO2 09/25/16 07:14 93 16 30 09/25/16 06:00 94 17 110/86 100 Mechanical Ventilator 30 09/25/16 05:20 95 16 30 09/25/16 05:00 95 20 106/86 100 Mechanical Ventilator 30 09/25/16 04:00 98.8 98 18 112/87 100 Mechanical Ventilator 30 09/25/16 04:00 30 09/25/16 04:00 98 09/25/16 03:04 98 16 30 09/25/16 03:00 99 16 105/85 100 Mechanical Ventilator 30 09/25/16 02:00 101 16 109/88 100 Mechanical Ventilator 30 09/25/16 01:18 103 16 30 09/25/16 01:00 104 16 118/82 100 Mechanical Ventilator 30 09/25/16 00:00 30 09/25/16 00:00 105 09/25/16 00:00 99.0 100 20 120/85 100 Mechanical Ventilator 30 09/24/16 23:23 100 16 30 09/24/16 23:00 101 20 118/85 100 Mechanical Ventilator 30 09/24/16 22:00 101 20 127/85 100 Mechanical Ventilator 30 09/24/16 21:18 109 16 30 09/24/16 21:00 99 16 103/80 100 Mechanical Ventilator 30 09/24/16 20:00 30 09/24/16 20:00 98.2 99 16 97/74 100 Mechanical Ventilator 30 09/24/16 20:00 99 09/24/16 19:05 105 16 30 09/24/16 19:00 103 16 105/80 100 Mechanical Ventilator 30 09/24/16 18:00 109 16 117/84 100 Mechanical Ventilator 30 09/24/16 17:00 105 16 129/85 100 Mechanical Ventilator 30 09/24/16 16:40 106 16 30 09/24/16 16:00 100 09/24/16 16:00 98.0 104 16 114/82 100 Mechanical Ventilator 30 09/24/16 16:00 30 09/24/16 15:16 112 16 30 09/24/16 15:00 105 16 141/100 100 Mechanical Ventilator 40 09/24/16 14:00 108 16 135/87 100 Mechanical Ventilator 40 09/24/16 13:00 97.3 104 16 104/81 100 Mechanical Ventilator 30 09/24/16 12:39 107 16 30 09/24/16 12:00 30 09/24/16 12:00 103 16 90/53 100 Mechanical Ventilator 40 09/24/16 12:00 102 09/24/16 11:00 106 16 109/82 100 Mechanical Ventilator 40 09/24/16 10:45 102 16 30 09/24/16 10:00 106 16 131/94 100 Mechanical Ventilator 40 09/24/16 09:00 105 16 125/82 100 Mechanical Ventilator 40 09/24/16 08:51 107 16 30 Height (Feet): 6 Height (Inches): 2.00 Weight (Pounds): 127 General Appearance: other - intubated Respiratory/Chest: decreased breath sounds Cardiovascular: normal rate, regular rhythm Abdomen: normal bowel sounds, soft, non tender, non distended Laboratory Tests Test 09/24/16 08:40 09/25/16 05:20 White Blood Count 10.3 K/UL (4.8-10.8) 8.7 K/UL (4.8-10.8) Red Blood Count 3.56 M/UL (4.70-6.10) L 3.50 M/UL (4.70-6.10) L Hemoglobin 9.8 G/DL (14.2-18.0) L 9.7 G/DL (14.2-18.0) L Hematocrit 32.5 % (42.0-52.0) L 31.9 % (42.0-52.0) L Mean Corpuscular Volume 91 FL (80-99) 91 FL (80-99) Mean Corpuscular Hemoglobin 27.4 PG (27.0-31.0) 27.6 PG (27.0-31.0) Mean Corpuscular Hemoglobin Concent 30.1 G/DL (32.0-36.0) L 30.4 G/DL (32.0-36.0) L Red Cell Distribution Width 15.1 % (11.6-14.8) H 15.4 % (11.6-14.8) H Platelet Count 370 K/UL (150-450) 322 K/UL (150-450) Mean Platelet Volume 6.7 FL (6.5-10.1) 6.5 FL (6.5-10.1) Neutrophils (%) (Auto) % (45.0-75.0) % (45.0-75.0) Lymphocytes (%) (Auto) % (20.0-45.0) % (20.0-45.0) Monocytes (%) (Auto) % (1.0-10.0) % (1.0-10.0) Eosinophils (%) (Auto) % (0.0-3.0) % (0.0-3.0) Basophils (%) (Auto) % (0.0-2.0) % (0.0-2.0) Differential Total Cells Counted 100 Neutrophils % (Manual) 85 % (45-75) H Pending Lymphocytes % (Manual) 6 % (20-45) L Pending Monocytes % (Manual) 8 % (1-10) Eosinophils % (Manual) 0 % (0-3) Basophils % (Manual) 0 % (0-2) Band Neutrophils 1 % (0-8) Platelet Estimate Adequate Pending Platelet Morphology Normal Pending Hypochromasia 2+ Anisocytosis 1+ Sodium Level 151 mEQ/L (135-145) H Potassium Level 4.3 mEQ/L (3.4-4.9) Chloride Level 107 mEQ/L (98-107) Carbon Dioxide Level 37 mEQ/L (20-30) H Anion Gap 7 (5-15) Blood Urea Nitrogen 20 mg/dL (7-23) Creatinine 0.7 mg/dL (0.7-1.2) Estimat Glomerular Filtration Rate > 60 mL/min (>60) Glucose Level 139 mg/dL (74-106) H Calcium Level 9.5 mg/dL (8.6-10.2) Phosphorus Level 4.5 mg/dL (2.5-4.8) Magnesium Level 2.3 mg/dL (1.7-2.5) Total Bilirubin < 0.2 mg/dL (0.0-1.2) Aspartate Amino Transf (AST/SGOT) 15 U/L (5-40) Alanine Aminotransferase (ALT/SGPT) 26 U/L (3-41) Alkaline Phosphatase 83 U/L (40-129) Total Protein 5.9 g/dL (6.6-8.7) L Albumin 2.8 g/dL (3.5-5.2) L Globulin 3.1 g/dL Albumin/Globulin Ratio 0.9 (1.0-2.7) L Current Medications Medications (Trade) Dose Ordered Sig/Shraddha Route PRN Reason Start Time Stop Time Status Last Admin Dose Admin Acetaminophen (Tylenol) 650 mg Q4H PRN ORAL fever>100.5 09/20/16 18:30 10/20/16 18:29 Albuterol/ Ipratropium 3 ml 3 ml Q4H PRN HHN Shortness of Breath 09/20/16 18:30 09/25/16 18:29 Amikacin Sulfate/ Sodium Chloride (Amikin/Sodium Chloride) 114 ml @ 114 mls/hr Q36H IV 09/22/16 12:00 09/29/16 11:59 09/24/16 00:49 Dextrose (Dextrose 50%) STAT PRN IV Hypoglycemia 09/21/16 16:45 10/21/16 16:44 Ertapenem/Sodium Chloride (INVanz/Sodium Chloride) 55 ml @ 110 mls/hr Q24H IV 09/20/16 21:00 09/26/16 23:59 09/24/16 20:51 Heparin Sodium (Porcine) (Heparin 5000 units/ml) 5,000 units EVERY 12 HOURS SUBQ 09/20/16 21:00 10/20/16 20:59 09/24/16 21:19 Insulin Aspart (NovoLOG) start when feeding started Q6HR SUBQ 09/21/16 18:00 10/21/16 17:59 09/25/16 05:57 Lorazepam 2 mg 2 mg Q2H PRN IV For Anxiety 09/20/16 18:30 09/27/16 18:29 09/25/16 06:28 Methylprednisolone Sodium Succinate (Solu-MEDROL) 40 mg EVERY 12 HOURS IVP 09/24/16 21:00 10/24/16 20:59 09/24/16 20:51 Morphine Sulfate (Morphine Sulfate) 4 mg Q4H PRN IVP Severe Pain (Pain Scale 7-10) 09/20/16 18:30 09/27/16 18:29 09/22/16 21:50 Ondansetron HCl (Zofran) 4 mg Q6H PRN IVP Nausea & Vomiting 09/20/16 18:30 10/20/16 18:29 Pantoprazole (Protonix) 40 mg DAILY IVP 09/25/16 09:00 10/25/16 08:59 Polyethylene Glycol (Miralax) 17 gm DAILYPRN PRN ORAL Constipation 09/20/16 18:30 10/20/16 18:29 NAOMI GEORGE 22, 2017 08:25
[2016-09-25] MEDS: Pantoprazole Inj IVP SCH (08:49)
[2016-09-25] MEDS: Morphine Sulfate 4mg/ml Inj IVP PRN (08:49)
[2016-09-25] MEDS: Solu-MEDROL 40mg Inj IVP SCH ×2 (08:49→21:37)
[2016-09-25] MEDS: Heparin 5000 units/ml inj SUBQ SCH ×2 (09:01→21:37)
[2016-09-25 09:20] LABS: ABG ALLEN TEST POSITIVE; ABG BASE EXCESS 15.6; ABG PCO2 57.1 mmHg (35.0-45.0)
[2016-09-25 10:55] LABS: ANISOCYTOSIS 1+; BAND NEUTROPHILS % (MANUAL) 0 % (0-8); BASOPHILS % (MANUAL) 0 % (0-2); EOSINOPHILS % (MANUAL) 0 % (0-3); LYMPHOCYTES % (MANUAL) 7 % (20-45); NEUTROPHILS % (MANUAL) 86 % (45-75); PLATELET ESTIMATE ADEQUATE; PLATELET MORPHOLOGY NORMAL; TOTAL CELLS COUNTED 100
[2016-09-25 10:56] LABS: HYPOCHROMASIA 2+
--- NOTE | 2016-09-25 11:09 | Pulmonolgy Critical Care Note ---
Critical Care - Asmt/Plan Problems: (1) Respiratory failure (2) COPD exacerbation (3) Pneumonia (4) Altered mental status Respiratory: monitor respiratory rate, adjust FIO2, CXR, weaning trial Cardiac: continue to monitor HR/BP Renal: F/U I&O, keep IV fluid Infectious Disease: check cultures, continue antibiotics Gastrointestinal: continue feedings/current rate Endocrine: monitor blood sugar, check HgA1C, continue sliding scale insulin Hematologic: transfuse if hgb<8.5 Neurologic: PRN Ativan, PRN Morphine, keep patient comfortable Affect: PRN ativan Prophylaxis: Heparin Notes Reviewed: kiln burner, cardio 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, consultants, registered nurse hh case managermanager law - Objective Last 24 Hour Vital Signs Date Time Temp Pulse Resp B/P Pulse Ox O2 Delivery O2 Flow Rate FiO2 09/25/16 09:08 94 16 30 09/25/16 07:14 93 16 30 09/25/16 06:00 94 17 110/86 100 Mechanical Ventilator 30 09/25/16 05:20 95 16 30 09/25/16 05:00 95 20 106/86 100 Mechanical Ventilator 30 09/25/16 04:00 98.8 98 18 112/87 100 Mechanical Ventilator 30 09/25/16 04:00 30 09/25/16 04:00 98 09/25/16 03:04 98 16 30 09/25/16 03:00 99 16 105/85 100 Mechanical Ventilator 30 09/25/16 02:00 101 16 109/88 100 Mechanical Ventilator 30 09/25/16 01:18 103 16 30 09/25/16 01:00 104 16 118/82 100 Mechanical Ventilator 30 09/25/16 00:00 30 09/25/16 00:00 105 09/25/16 00:00 99.0 100 20 120/85 100 Mechanical Ventilator 30 09/24/16 23:23 100 16 30 09/24/16 23:00 101 20 118/85 100 Mechanical Ventilator 30 09/24/16 22:00 101 20 127/85 100 Mechanical Ventilator 30 09/24/16 21:18 109 16 30 09/24/16 21:00 99 16 103/80 100 Mechanical Ventilator 30 09/24/16 20:00 30 09/24/16 20:00 98.2 99 16 97/74 100 Mechanical Ventilator 30 09/24/16 20:00 99 09/24/16 19:05 105 16 30 09/24/16 19:00 103 16 105/80 100 Mechanical Ventilator 30 09/24/16 18:00 109 16 117/84 100 Mechanical Ventilator 30 09/24/16 17:00 105 16 129/85 100 Mechanical Ventilator 30 09/24/16 16:40 106 16 30 09/24/16 16:00 100 09/24/16 16:00 98.0 104 16 114/82 100 Mechanical Ventilator 30 09/24/16 16:00 30 09/24/16 15:16 112 16 30 09/24/16 15:00 105 16 141/100 100 Mechanical Ventilator 40 09/24/16 14:00 108 16 135/87 100 Mechanical Ventilator 40 09/24/16 13:00 97.3 104 16 104/81 100 Mechanical Ventilator 30 09/24/16 12:39 107 16 30 09/24/16 12:00 30 09/24/16 12:00 103 16 90/53 100 Mechanical Ventilator 40 09/24/16 12:00 102 Status: awake Condition: critical HEENT: atraumatic Neck: full ROM Lungs: clear, chest wall tender Heart: HR/BP stable, regular Abdomen: non-tender, feeding tube Extremities: no C/C/E Decubiti: location Accucheck: 126 Critical Care - Subjective ICU Day: 5 Intubation Day: 5 Condition: critical EKG Rhythm: Sinus Rhythm FI02: 30 Vent Support Breath Rate: 16 Vent Support Mode: AC Vent Tidal Volume: 600 Sputum Amount: Moderate PEEP: 5.0 PIP: 29 Tube Feeding Amount: 30 I&O: Intake and Output 09/24/16 09/25/16 19:00 07:00 Intake Total 410 ml 520 ml Output Total 440 ml 543 ml Balance -30 ml -23 ml Free Water 50 ml 100 ml Tube Feeding 360 ml 420 ml Output Urine Total 440 ml 540 ml Stool Total 3 ml # Bowel Movements 3 3 CXR: no change, ET in good place ET-Tube: 8.0 ET Position: 24 Labs: Laboratory Tests Test 09/25/16 05:20 09/25/16 09:00 White Blood Count 8.7 K/UL (4.8-10.8) Red Blood Count 3.50 M/UL (4.70-6.10) L Hemoglobin 9.7 G/DL (14.2-18.0) L Hematocrit 31.9 % (42.0-52.0) L Mean Corpuscular Volume 91 FL (80-99) Mean Corpuscular Hemoglobin 27.6 PG (27.0-31.0) Mean Corpuscular Hemoglobin Concent 30.4 G/DL (32.0-36.0) L Red Cell Distribution Width 15.4 % (11.6-14.8) H Platelet Count 322 K/UL (150-450) Mean Platelet Volume 6.5 FL (6.5-10.1) Neutrophils (%) (Auto) % (45.0-75.0) Lymphocytes (%) (Auto) % (20.0-45.0) Monocytes (%) (Auto) % (1.0-10.0) Eosinophils (%) (Auto) % (0.0-3.0) Basophils (%) (Auto) % (0.0-2.0) Differential Total Cells Counted 100 Neutrophils % (Manual) 86 % (45-75) H Lymphocytes % (Manual) 7 % (20-45) L Monocytes % (Manual) 7 % (1-10) Eosinophils % (Manual) 0 % (0-3) Basophils % (Manual) 0 % (0-2) Band Neutrophils 0 % (0-8) Platelet Estimate Adequate Platelet Morphology Normal Hypochromasia 2+ Anisocytosis 1+ Sodium Level 151 mEQ/L (135-145) H Potassium Level 4.3 mEQ/L (3.4-4.9) Chloride Level 107 mEQ/L (98-107) Carbon Dioxide Level 37 mEQ/L (20-30) H Anion Gap 7 (5-15) Blood Urea Nitrogen 20 mg/dL (7-23) Creatinine 0.7 mg/dL (0.7-1.2) Estimat Glomerular Filtration Rate > 60 mL/min (>60) Glucose Level 139 mg/dL (74-106) H Calcium Level 9.5 mg/dL (8.6-10.2) Phosphorus Level 4.5 mg/dL (2.5-4.8) Magnesium Level 2.3 mg/dL (1.7-2.5) Total Bilirubin < 0.2 mg/dL (0.0-1.2) Aspartate Amino Transf (AST/SGOT) 15 U/L (5-40) Alanine Aminotransferase (ALT/SGPT) 26 U/L (3-41) Alkaline Phosphatase 83 U/L (40-129) Total Protein 5.9 g/dL (6.6-8.7) L Albumin 2.8 g/dL (3.5-5.2) L Globulin 3.1 g/dL Albumin/Globulin Ratio 0.9 (1.0-2.7) L Arterial Blood pH 7.478 (7.350-7.450) Arterial Blood Partial Pressure CO2 57.1 mmHg (35.0-45.0) *H Arterial Blood Partial Pressure O2 109.5 mmHg (75.0-100.0) H Arterial Blood HCO3 41.4 mmol/L (22.0-26.0) H Arterial Blood Oxygen Saturation 97.5 % (92.0-98.0) Arterial Blood Base Excess 15.6 Joseluis Test Positive REN WRIGHT Sep 25, 2016 11:09
--- NOTE | 2016-09-25 13:39 | Diagnostic Imaging Report ---
Indication: Dyspnea Comparison: 09/24/16 A single view chest radiograph was obtained. Findings: Endotracheal tube position is satisfactory. A nasogastric tube is also present. The tip is projected over the upper abdomen. The proximal port is in the esophagus. The tube should be advanced further. The lungs are hyperexpanded. Heart size is stable and within normal limits. Impression: No change from the prior day. Nasogastric tube is high and should be advanced. COPD
--- NOTE | 2016-09-25 20:08 | Internal Med Progress Note ---
Subjective Date of Service: Sep 25, 2016 Physician Name Tadeo Verdin Attending Physician Steve Rader MD Current Medications Medications (Trade) Dose Ordered Sig/Shraddha Route PRN Reason Start Time Stop Time Status Last Admin Dose Admin Acetaminophen (Tylenol) 650 mg Q4H PRN ORAL fever>100.5 09/20/16 18:30 10/20/16 18:29 Dextrose (Dextrose 50%) STAT PRN IV Hypoglycemia 09/21/16 16:45 10/21/16 16:44 Heparin Sodium (Porcine) (Heparin 5000 units/ml) 5,000 units EVERY 12 HOURS SUBQ 09/20/16 21:00 10/20/16 20:59 09/25/16 09:01 Insulin Aspart (NovoLOG) start when feeding started Q6HR SUBQ 09/21/16 18:00 10/21/16 17:59 09/25/16 17:55 Lorazepam (Ativan 2mg/ml 1ml) 2 mg Q2H PRN IV For Anxiety 09/20/16 18:30 09/27/16 18:29 09/25/16 06:28 Methylprednisolone Sodium Succinate (Solu-MEDROL) 40 mg EVERY 12 HOURS IVP 09/24/16 21:00 10/24/16 20:59 09/25/16 08:49 Morphine Sulfate (Morphine Sulfate) 4 mg Q4H PRN IVP Severe Pain (Pain Scale 7-10) 09/20/16 18:30 09/27/16 18:29 09/25/16 08:49 Ondansetron HCl (Zofran) 4 mg Q6H PRN IVP Nausea & Vomiting 09/20/16 18:30 10/20/16 18:29 09/25/16 08:49 Pantoprazole (Protonix) 40 mg DAILY IVP 09/25/16 09:00 10/25/16 08:59 09/25/16 08:49 Polyethylene Glycol (Miralax) 17 gm DAILYPRN PRN ORAL Constipation 09/20/16 18:30 10/20/16 18:29 Allergies: Coded Allergies: No Known Allergies (Unverified , 06/17/16) ROS Limited/Unobtainable: Yes Subjective 66 YO M admitted with respiratory failure. ICU. Intubated and sedated. Cover for Stanislav Hdz-Dr Rader. Objective Last Vital Signs Date Time Temp Pulse Resp B/P Pulse Ox O2 Delivery O2 Flow Rate FiO2 09/25/16 19:16 99 19 30 09/25/16 19:00 99/76 100 Mechanical Ventilator 09/25/16 16:00 97.8 09/22/16 19:13 15.0 Laboratory Tests Test 09/25/16 05:20 09/25/16 09:00 White Blood Count 8.7 K/UL (4.8-10.8) Red Blood Count 3.50 M/UL (4.70-6.10) L Hemoglobin 9.7 G/DL (14.2-18.0) L Hematocrit 31.9 % (42.0-52.0) L Mean Corpuscular Volume 91 FL (80-99) Mean Corpuscular Hemoglobin 27.6 PG (27.0-31.0) Mean Corpuscular Hemoglobin Concent 30.4 G/DL (32.0-36.0) L Red Cell Distribution Width 15.4 % (11.6-14.8) H Platelet Count 322 K/UL (150-450) Mean Platelet Volume 6.5 FL (6.5-10.1) Neutrophils (%) (Auto) % (45.0-75.0) Lymphocytes (%) (Auto) % (20.0-45.0) Monocytes (%) (Auto) % (1.0-10.0) Eosinophils (%) (Auto) % (0.0-3.0) Basophils (%) (Auto) % (0.0-2.0) Differential Total Cells Counted 100 Neutrophils % (Manual) 86 % (45-75) H Lymphocytes % (Manual) 7 % (20-45) L Monocytes % (Manual) 7 % (1-10) Eosinophils % (Manual) 0 % (0-3) Basophils % (Manual) 0 % (0-2) Band Neutrophils 0 % (0-8) Platelet Estimate Adequate Platelet Morphology Normal Hypochromasia 2+ Anisocytosis 1+ Sodium Level 151 mEQ/L (135-145) H Potassium Level 4.3 mEQ/L (3.4-4.9) Chloride Level 107 mEQ/L (98-107) Carbon Dioxide Level 37 mEQ/L (20-30) H Anion Gap 7 (5-15) Blood Urea Nitrogen 20 mg/dL (7-23) Creatinine 0.7 mg/dL (0.7-1.2) Estimat Glomerular Filtration Rate > 60 mL/min (>60) Glucose Level 139 mg/dL (74-106) H Calcium Level 9.5 mg/dL (8.6-10.2) Phosphorus Level 4.5 mg/dL (2.5-4.8) Magnesium Level 2.3 mg/dL (1.7-2.5) Total Bilirubin < 0.2 mg/dL (0.0-1.2) Aspartate Amino Transf (AST/SGOT) 15 U/L (5-40) Alanine Aminotransferase (ALT/SGPT) 26 U/L (3-41) Alkaline Phosphatase 83 U/L (40-129) Total Protein 5.9 g/dL (6.6-8.7) L Albumin 2.8 g/dL (3.5-5.2) L Globulin 3.1 g/dL Albumin/Globulin Ratio 0.9 (1.0-2.7) L Arterial Blood pH 7.478 (7.350-7.450) Arterial Blood Partial Pressure CO2 57.1 mmHg (35.0-45.0) *H Arterial Blood Partial Pressure O2 109.5 mmHg (75.0-100.0) H Arterial Blood HCO3 41.4 mmol/L (22.0-26.0) H Arterial Blood Oxygen Saturation 97.5 % (92.0-98.0) Arterial Blood Base Excess 15.6 Joseluis Test Positive Intake and Output 09/24/16 09/25/16 19:00 07:00 Intake Total 410 ml 520 ml Output Total 440 ml 543 ml Balance -30 ml -23 ml Free Water 50 ml 100 ml Tube Feeding 360 ml 420 ml Output Urine Total 440 ml 540 ml Stool Total 3 ml # Bowel Movements 3 3 Objective General Appearance: moderate distress, thin EENT: PERRL/EOMI, normal ENT inspection Neck: non-tender, normal alignment, supple Cardiovascular: normal peripheral pulses, normal rate, regular rhythm, no gallop/murmur, no JVD Respiratory/Chest: Mech Vent; respiratory distress, crackles/rales, rhonchi - bilaterally, expiratory wheezing Abdomen: non tender, soft, no organomegaly, no mass, decreased bowel sounds Extremities: normal range of motion Skin: normal pigmentation, warm/dry Assessment/Plan Problem List: (1) Lung nodule (2) DVT (deep venous thrombosis) (3) Acute respiratory failure Assessment & Plan: Cont vent per pulmonary (4) COPD exacerbation Assessment & Plan: Continue IV solumedrol and duoneb. Continue vent per pulmonary. (5) Pneumonia Assessment & Plan: Cont ertapenem and amikacin per ID Status: not improved TADEO VERDIN Sep 25, 2016 20:08
[2016-09-26] VITALS (24 sets, daily range): BP systolic 91–131; BP diastolic 70–97
[2016-09-26] MEDS: NovoLOG Insulin Flexpen SUBQ SCH ×3 (06:18→17:50)
[2016-09-26 07:42] LABS: BASOPHILS % (AUTO) 0.5 % (0.0-2.0); LYMPHOCYTES % (AUTO) 12.7 % (20.0-45.0); MEAN CORPUSCULAR HEMOGLOBIN 27.3 PG (27.0-31.0); MEAN CORPUSCULAR HGB CONC 29.9 G/DL (32.0-36.0); MEAN CORPUSCULAR VOLUME 91 FL (80-99); MEAN PLATELET VOLUME 6.8 FL (6.5-10.1); MONOCYTES % (AUTO) 8.6 % (1.0-10.0); NEUTROPHILS % (AUTO) 78.3 % (45.0-75.0); PLATELET COUNT 339 K/UL (150-450); RED BLOOD COUNT 3.98 M/UL (4.70-6.10); RED CELL DISTRIBUTION WIDTH 15.3 % (11.6-14.8); WHITE BLOOD COUNT 10.4 K/UL (4.8-10.8)
[2016-09-26 08:20] LABS: ALANINE AMINOTRANSFERASE 24 U/L (3-41); ANION GAP 6 (5-15); ASPARTATE AMINO TRANSFERASE 19 U/L (5-40); CALCIUM 9.6 mg/dL (8.6-10.2); CARBON DIOXIDE 40 mEQ/L (20-30); CHLORIDE 106 mEQ/L (98-107); CREATININE 0.8 mg/dL (0.7-1.2); GLOMERULAR FILTRATION RATE > 60 mL/min (>60); HEMOLYSIS 2; MAGNESIUM 2.6 mg/dL (1.7-2.5); PHOSPHORUS 5.1 mg/dL (2.5-4.8); POTASSIUM 4.5 mEQ/L (3.4-4.9); SODIUM 152 mEQ/L (135-145); TOTAL PROTEIN 6.2 g/dL (6.6-8.7)
--- NOTE | 2016-09-26 08:40 | Infectious Diseases Prog Note ---
Assessment/Plan Assessment/Plan ASSESSMENT: 66 y/o male with: // COPD exacerbation r/o HCAP - SCx not sent - CXR 09/25: No infiltrate seen. Lungs are hyperexpanded. Unchanged - negative: influenza // Leukocytosis - resolved, afebrile ( on steroids ) // Acute VDRF - intubated 09/20, may need trach // Severe pulmonary HTN / grade I diastolic dysfunction / mod TR // Pulmonary nodules // Chronic RLE DVT // Tobacco abuse // [place] resident // Negative MRSA, VRE screens // NKDA // Full Code PLAN: - monitor pt off of ABX ( 09/24 SP amikacin, invanz d# 5 / 5 ) ( 09/21 SP IV vancomycin d# 2 ) - taper steroids per pulm - f/u final cultures - monitor CBC, temperatures - monitor BMP - monitor CXR - vent support, wean as tolerated. May need trach Subjective Allergies: Coded Allergies: No Known Allergies (Unverified , 06/17/16) Subjective remains afebrile on vent Objective Vital Signs Last 24 Hour Vital Signs Date Time Temp Pulse Resp B/P Pulse Ox O2 Delivery O2 Flow Rate FiO2 09/26/16 07:08 87 16 30 09/26/16 07:00 96 18 103/82 100 Mechanical Ventilator 30 09/26/16 06:00 87 18 99/80 100 Mechanical Ventilator 30 09/26/16 05:15 102 16 30 09/26/16 05:00 96 20 101/75 100 Mechanical Ventilator 30 09/26/16 04:00 95 09/26/16 04:00 30 09/26/16 04:00 98.4 96 20 98/78 100 Mechanical Ventilator 30 09/26/16 03:20 96 16 30 09/26/16 03:00 96 20 101/97 100 Mechanical Ventilator 30 09/26/16 02:00 96 14 98/76 100 Mechanical Ventilator 30 09/26/16 01:04 99 16 30 09/26/16 01:00 95 14 113/91 100 Mechanical Ventilator 30 09/26/16 00:00 30 09/26/16 00:00 93 09/26/16 00:00 97 14 101/84 100 Mechanical Ventilator 30 09/25/16 23:04 109 16 30 09/25/16 23:00 92 16 118/98 100 Mechanical Ventilator 30 09/25/16 23:00 85 16 100/52 100 Mechanical Ventilator 30 09/25/16 22:00 101 16 106/80 100 Mechanical Ventilator 30 09/25/16 21:00 99 17 98/66 100 Mechanical Ventilator 30 09/25/16 21:00 101 16 30 09/25/16 20:00 98.0 101 16 96/79 100 Mechanical Ventilator 30 09/25/16 20:00 30 09/25/16 20:00 96 09/25/16 19:16 99 19 30 09/25/16 19:00 96 17 99/76 100 Mechanical Ventilator 30 09/25/16 18:00 97 16 99/80 100 Mechanical Ventilator 30 09/25/16 17:00 97 16 117/89 100 Mechanical Ventilator 30 09/25/16 16:54 103 16 30 09/25/16 16:00 97.8 102 18 110/84 100 Mechanical Ventilator 30 09/25/16 16:00 104 09/25/16 16:00 30 09/25/16 15:00 91 15 124/71 99 Mechanical Ventilator 30 09/25/16 14:59 101 16 30 09/25/16 13:59 95 16 108/61 99 Mechanical Ventilator 30 09/25/16 13:20 101 16 30 09/25/16 13:00 90 17 109/65 100 Mechanical Ventilator 30 09/25/16 12:00 90 09/25/16 12:00 98.5 103 17 114/67 100 Mechanical Ventilator 30 09/25/16 12:00 30 09/25/16 11:19 95 16 30 09/25/16 11:00 103 16 103/51 100 Mechanical Ventilator 30 09/25/16 10:00 96 15 121/71 100 Mechanical Ventilator 30 09/25/16 09:08 94 16 30 09/25/16 09:00 95 15 125/61 100 Mechanical Ventilator 30 Height (Feet): 6 Height (Inches): 2.00 Weight (Pounds): 127 General Appearance: other - intubated Respiratory/Chest: decreased breath sounds Cardiovascular: normal rate, regular rhythm Abdomen: normal bowel sounds, soft, non tender, non distended Laboratory Tests Test 09/25/16 09:00 09/26/16 07:20 Arterial Blood pH 7.478 (7.350-7.450) Arterial Blood Partial Pressure CO2 57.1 mmHg (35.0-45.0) *H Arterial Blood Partial Pressure O2 109.5 mmHg (75.0-100.0) H Arterial Blood HCO3 41.4 mmol/L (22.0-26.0) H Arterial Blood Oxygen Saturation 97.5 % (92.0-98.0) Arterial Blood Base Excess 15.6 Joseluis Test Positive White Blood Count 10.4 K/UL (4.8-10.8) Red Blood Count 3.98 M/UL (4.70-6.10) L Hemoglobin 10.8 G/DL (14.2-18.0) L Hematocrit 36.2 % (42.0-52.0) L Mean Corpuscular Volume 91 FL (80-99) Mean Corpuscular Hemoglobin 27.3 PG (27.0-31.0) Mean Corpuscular Hemoglobin Concent 29.9 G/DL (32.0-36.0) L Red Cell Distribution Width 15.3 % (11.6-14.8) H Platelet Count 339 K/UL (150-450) Mean Platelet Volume 6.8 FL (6.5-10.1) Neutrophils (%) (Auto) 78.3 % (45.0-75.0) H Lymphocytes (%) (Auto) 12.7 % (20.0-45.0) L Monocytes (%) (Auto) 8.6 % (1.0-10.0) Eosinophils (%) (Auto) 0.0 % (0.0-3.0) Basophils (%) (Auto) 0.5 % (0.0-2.0) Sodium Level 152 mEQ/L (135-145) H Potassium Level 4.5 mEQ/L (3.4-4.9) Chloride Level 106 mEQ/L (98-107) Carbon Dioxide Level 40 mEQ/L (20-30) H Anion Gap 6 (5-15) Blood Urea Nitrogen 24 mg/dL (7-23) H Creatinine 0.8 mg/dL (0.7-1.2) Estimat Glomerular Filtration Rate > 60 mL/min (>60) Glucose Level 156 mg/dL (74-106) H Calcium Level 9.6 mg/dL (8.6-10.2) Phosphorus Level 5.1 mg/dL (2.5-4.8) H Magnesium Level 2.6 mg/dL (1.7-2.5) H Total Bilirubin < 0.2 mg/dL (0.0-1.2) Aspartate Amino Transf (AST/SGOT) 19 U/L (5-40) Alanine Aminotransferase (ALT/SGPT) 24 U/L (3-41) Alkaline Phosphatase 85 U/L (40-129) Total Protein 6.2 g/dL (6.6-8.7) L Albumin 3.2 g/dL (3.5-5.2) L Globulin 3.0 g/dL Albumin/Globulin Ratio 1.0 (1.0-2.7) Current Medications Medications (Trade) Dose Ordered Sig/Shraddha Route PRN Reason Start Time Stop Time Status Last Admin Dose Admin Acetaminophen (Tylenol) 650 mg Q4H PRN ORAL fever>100.5 09/20/16 18:30 10/20/16 18:29 Dextrose (Dextrose 50%) STAT PRN IV Hypoglycemia 09/21/16 16:45 10/21/16 16:44 Heparin Sodium (Porcine) (Heparin 5000 units/ml) 5,000 units EVERY 12 HOURS SUBQ 09/20/16 21:00 10/20/16 20:59 09/25/16 21:37 Insulin Aspart (NovoLOG) start when feeding started Q6HR SUBQ 09/21/16 18:00 10/21/16 17:59 09/26/16 06:18 Lorazepam (Ativan 2mg/ml 1ml) 2 mg Q2H PRN IV For Anxiety 09/20/16 18:30 09/27/16 18:29 09/25/16 06:28 Methylprednisolone Sodium Succinate (Solu-MEDROL) 40 mg EVERY 12 HOURS IVP 09/24/16 21:00 10/24/16 20:59 09/25/16 21:37 Morphine Sulfate (Morphine Sulfate) 4 mg Q4H PRN IVP Severe Pain (Pain Scale 7-10) 09/20/16 18:30 09/27/16 18:29 09/25/16 08:49 Ondansetron HCl (Zofran) 4 mg Q6H PRN IVP Nausea & Vomiting 09/20/16 18:30 10/20/16 18:29 09/25/16 08:49 Pantoprazole (Protonix) 40 mg DAILY IVP 09/25/16 09:00 10/25/16 08:59 09/25/16 08:49 Polyethylene Glycol (Miralax) 17 gm DAILYPRN PRN ORAL Constipation 09/20/16 18:30 10/20/16 18:29 NAOMI GEORGE Sep 26, 2016 08:39
[2016-09-26] MEDS: Solu-MEDROL 40mg Inj IVP SCH ×2 (09:14→20:45)
[2016-09-26] MEDS: Pantoprazole Inj IVP SCH (09:14)
[2016-09-26] MEDS: Heparin 5000 units/ml inj SUBQ SCH ×2 (09:15→20:45)
[2016-09-26 09:18] LABS: ABG BASE EXCESS 17.1
[2016-09-26 09:19] LABS: ABG ALLEN TEST POSITIVE
--- NOTE | 2016-09-26 10:55 | Pulmonolgy Critical Care Note ---
Critical Care - Asmt/Plan Problems: (1) Respiratory failure (2) COPD exacerbation (3) Pneumonia (4) Altered mental status Respiratory: monitor respiratory rate, adjust FIO2, CXR Cardiac: continue to monitor HR/BP Renal: F/U I&O, keep IV fluid Infectious Disease: continue antibiotics Gastrointestinal: continue feedings/current rate Endocrine: monitor blood sugar, check HgA1C, continue sliding scale insulin Hematologic: transfuse if hgb<8.5 Neurologic: keep patient comfortable Affect: PRN ativan Prophylaxis: Protonix Notes Reviewed: ditch tender, cardio, renal 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, consultants, behavioral health case managerclothing manager - Objective Last 24 Hour Vital Signs Date Time Temp Pulse Resp B/P Pulse Ox O2 Delivery O2 Flow Rate FiO2 09/26/16 09:04 91 16 30 09/26/16 09:00 97.6 94 16 94/77 100 Mechanical Ventilator 30 09/26/16 08:00 30 09/26/16 08:00 95 16 112/86 100 Mechanical Ventilator 30 09/26/16 07:08 87 16 30 09/26/16 07:00 96 18 103/82 100 Mechanical Ventilator 30 09/26/16 06:00 87 18 99/80 100 Mechanical Ventilator 30 09/26/16 05:15 102 16 30 09/26/16 05:00 96 20 101/75 100 Mechanical Ventilator 30 09/26/16 04:00 95 09/26/16 04:00 30 09/26/16 04:00 98.4 96 20 98/78 100 Mechanical Ventilator 30 09/26/16 03:20 96 16 30 09/26/16 03:00 96 20 101/97 100 Mechanical Ventilator 30 09/26/16 02:00 96 14 98/76 100 Mechanical Ventilator 30 09/26/16 01:04 99 16 30 09/26/16 01:00 95 14 113/91 100 Mechanical Ventilator 30 09/26/16 00:00 30 09/26/16 00:00 93 09/26/16 00:00 97 14 101/84 100 Mechanical Ventilator 30 09/25/16 23:04 109 16 30 09/25/16 23:00 92 16 118/98 100 Mechanical Ventilator 30 09/25/16 23:00 85 16 100/52 100 Mechanical Ventilator 30 09/25/16 22:00 101 16 106/80 100 Mechanical Ventilator 30 09/25/16 21:00 99 17 98/66 100 Mechanical Ventilator 30 09/25/16 21:00 101 16 30 09/25/16 20:00 98.0 101 16 96/79 100 Mechanical Ventilator 30 09/25/16 20:00 30 09/25/16 20:00 96 09/25/16 19:16 99 19 30 09/25/16 19:00 96 17 99/76 100 Mechanical Ventilator 30 09/25/16 18:00 97 16 99/80 100 Mechanical Ventilator 30 09/25/16 17:00 97 16 117/89 100 Mechanical Ventilator 30 09/25/16 16:54 103 16 30 09/25/16 16:00 97.8 102 18 110/84 100 Mechanical Ventilator 30 09/25/16 16:00 104 09/25/16 16:00 30 09/25/16 15:00 91 15 124/71 99 Mechanical Ventilator 30 09/25/16 14:59 101 16 30 09/25/16 13:59 95 16 108/61 99 Mechanical Ventilator 30 09/25/16 13:20 101 16 30 09/25/16 13:00 90 17 109/65 100 Mechanical Ventilator 30 09/25/16 12:00 90 09/25/16 12:00 98.5 103 17 114/67 100 Mechanical Ventilator 30 09/25/16 12:00 30 09/25/16 11:19 95 16 30 09/25/16 11:00 103 16 103/51 100 Mechanical Ventilator 30 Status: awake Condition: critical Neck: full ROM Lungs: chest wall tender Heart: HR/BP stable, regular Abdomen: non-tender, active bowel sounds Decubiti: location Accucheck: 148 Critical Care - Subjective ROS Limited/Unobtainable: Yes Condition: critical FI02: 30 Vent Support Breath Rate: 16 Vent Support Mode: AC Vent Tidal Volume: 600 Sputum Amount: Moderate PEEP: 5.0 PIP: 37 Tube Feeding Amount: 50 I&O: Intake and Output 09/25/16 09/26/16 19:00 07:00 Intake Total 480 ml 480 ml Output Total 475 ml 295 ml Balance 5 ml 185 ml Free Water 120 ml Tube Feeding 360 ml 480 ml Output Urine Total 475 ml 295 ml # Bowel Movements 2 CXR: no change ET-Tube: 8.0 ET Position: 24 Labs: Laboratory Tests Test 09/26/16 07:20 09/26/16 09:00 White Blood Count 10.4 K/UL (4.8-10.8) Red Blood Count 3.98 M/UL (4.70-6.10) L Hemoglobin 10.8 G/DL (14.2-18.0) L Hematocrit 36.2 % (42.0-52.0) L Mean Corpuscular Volume 91 FL (80-99) Mean Corpuscular Hemoglobin 27.3 PG (27.0-31.0) Mean Corpuscular Hemoglobin Concent 29.9 G/DL (32.0-36.0) L Red Cell Distribution Width 15.3 % (11.6-14.8) H Platelet Count 339 K/UL (150-450) Mean Platelet Volume 6.8 FL (6.5-10.1) Neutrophils (%) (Auto) 78.3 % (45.0-75.0) H Lymphocytes (%) (Auto) 12.7 % (20.0-45.0) L Monocytes (%) (Auto) 8.6 % (1.0-10.0) Eosinophils (%) (Auto) 0.0 % (0.0-3.0) Basophils (%) (Auto) 0.5 % (0.0-2.0) Sodium Level 152 mEQ/L (135-145) H Potassium Level 4.5 mEQ/L (3.4-4.9) Chloride Level 106 mEQ/L (98-107) Carbon Dioxide Level 40 mEQ/L (20-30) H Anion Gap 6 (5-15) Blood Urea Nitrogen 24 mg/dL (7-23) H Creatinine 0.8 mg/dL (0.7-1.2) Estimat Glomerular Filtration Rate > 60 mL/min (>60) Glucose Level 156 mg/dL (74-106) H Calcium Level 9.6 mg/dL (8.6-10.2) Phosphorus Level 5.1 mg/dL (2.5-4.8) H Magnesium Level 2.6 mg/dL (1.7-2.5) H Total Bilirubin < 0.2 mg/dL (0.0-1.2) Aspartate Amino Transf (AST/SGOT) 19 U/L (5-40) Alanine Aminotransferase (ALT/SGPT) 24 U/L (3-41) Alkaline Phosphatase 85 U/L (40-129) Total Protein 6.2 g/dL (6.6-8.7) L Albumin 3.2 g/dL (3.5-5.2) L Globulin 3.0 g/dL Albumin/Globulin Ratio 1.0 (1.0-2.7) Arterial Blood pH 7.500 (7.350-7.450) Arterial Blood Partial Pressure CO2 55.0 mmHg (35.0-45.0) H Arterial Blood Partial Pressure O2 71.6 mmHg (75.0-100.0) L Arterial Blood HCO3 42.6 mmol/L (22.0-26.0) H Arterial Blood Oxygen Saturation 9.3 % (92.0-98.0) L Arterial Blood Base Excess 17.1 Joseluis Test Positive REN WRIGHT Sep 26, 2016 10:55
--- NOTE | 2016-09-26 12:15 | Diagnostic Imaging Report ---
Indication: Dyspnea Comparison: 3.217 A single view chest radiograph was obtained. Findings: Endotracheal tube is in good position. Nasogastric tube tip is in the stomach but the proximal port is at the EG junction. The lungs are hyperexpanded. Cardio mediastinal silhouette is normal. The bones are unremarkable. Impression: COPD. No change compared to the previous day
--- NOTE | 2016-09-26 19:03 | Internal Med Progress Note ---
Subjective Date of Service: Sep 26, 2016 Physician Name Tadeo Verdin Attending Physician Steve Rader MD Current Medications Medications (Trade) Dose Ordered Sig/Shraddha Route PRN Reason Start Time Stop Time Status Last Admin Dose Admin Acetaminophen (Tylenol) 650 mg Q4H PRN ORAL fever>100.5 09/20/16 18:30 10/20/16 18:29 Dextrose (Dextrose 50%) STAT PRN IV Hypoglycemia 09/21/16 16:45 10/21/16 16:44 Heparin Sodium (Porcine) (Heparin 5000 units/ml) 5,000 units EVERY 12 HOURS SUBQ 09/20/16 21:00 10/20/16 20:59 09/26/16 09:15 Insulin Aspart (NovoLOG) start when feeding started Q6HR SUBQ 09/21/16 18:00 10/21/16 17:59 09/26/16 17:50 Lorazepam (Ativan 2mg/ml 1ml) 2 mg Q2H PRN IV For Anxiety 09/20/16 18:30 09/27/16 18:29 09/25/16 06:28 Methylprednisolone Sodium Succinate (Solu-MEDROL) 40 mg EVERY 12 HOURS IVP 09/24/16 21:00 10/24/16 20:59 09/26/16 09:14 Morphine Sulfate (Morphine Sulfate) 4 mg Q4H PRN IVP Severe Pain (Pain Scale 7-10) 09/20/16 18:30 09/27/16 18:29 09/25/16 08:49 Ondansetron HCl (Zofran) 4 mg Q6H PRN IVP Nausea & Vomiting 09/20/16 18:30 10/20/16 18:29 09/25/16 08:49 Pantoprazole (Protonix) 40 mg DAILY IVP 09/25/16 09:00 10/25/16 08:59 09/26/16 09:14 Polyethylene Glycol (Miralax) 17 gm DAILYPRN PRN ORAL Constipation 09/20/16 18:30 10/20/16 18:29 Allergies: Coded Allergies: No Known Allergies (Unverified , 06/17/16) ROS Limited/Unobtainable: Yes Subjective 66 YO M admitted with respiratory failure. ICU. Intubated and sedated. Cover for Stanislav Hdz-Dr Rader. Objective Last Vital Signs Date Time Temp Pulse Resp B/P Pulse Ox O2 Delivery O2 Flow Rate FiO2 09/26/16 18:00 97 16 91/75 100 Mechanical Ventilator 30 09/26/16 16:00 97.5 09/22/16 19:13 15.0 Laboratory Tests Test 09/26/16 07:20 09/26/16 09:00 White Blood Count 10.4 K/UL (4.8-10.8) Red Blood Count 3.98 M/UL (4.70-6.10) L Hemoglobin 10.8 G/DL (14.2-18.0) L Hematocrit 36.2 % (42.0-52.0) L Mean Corpuscular Volume 91 FL (80-99) Mean Corpuscular Hemoglobin 27.3 PG (27.0-31.0) Mean Corpuscular Hemoglobin Concent 29.9 G/DL (32.0-36.0) L Red Cell Distribution Width 15.3 % (11.6-14.8) H Platelet Count 339 K/UL (150-450) Mean Platelet Volume 6.8 FL (6.5-10.1) Neutrophils (%) (Auto) 78.3 % (45.0-75.0) H Lymphocytes (%) (Auto) 12.7 % (20.0-45.0) L Monocytes (%) (Auto) 8.6 % (1.0-10.0) Eosinophils (%) (Auto) 0.0 % (0.0-3.0) Basophils (%) (Auto) 0.5 % (0.0-2.0) Sodium Level 152 mEQ/L (135-145) H Potassium Level 4.5 mEQ/L (3.4-4.9) Chloride Level 106 mEQ/L (98-107) Carbon Dioxide Level 40 mEQ/L (20-30) H Anion Gap 6 (5-15) Blood Urea Nitrogen 24 mg/dL (7-23) H Creatinine 0.8 mg/dL (0.7-1.2) Estimat Glomerular Filtration Rate > 60 mL/min (>60) Glucose Level 156 mg/dL (74-106) H Calcium Level 9.6 mg/dL (8.6-10.2) Phosphorus Level 5.1 mg/dL (2.5-4.8) H Magnesium Level 2.6 mg/dL (1.7-2.5) H Total Bilirubin < 0.2 mg/dL (0.0-1.2) Aspartate Amino Transf (AST/SGOT) 19 U/L (5-40) Alanine Aminotransferase (ALT/SGPT) 24 U/L (3-41) Alkaline Phosphatase 85 U/L (40-129) Total Protein 6.2 g/dL (6.6-8.7) L Albumin 3.2 g/dL (3.5-5.2) L Globulin 3.0 g/dL Albumin/Globulin Ratio 1.0 (1.0-2.7) Arterial Blood pH 7.500 (7.350-7.450) Arterial Blood Partial Pressure CO2 55.0 mmHg (35.0-45.0) H Arterial Blood Partial Pressure O2 71.6 mmHg (75.0-100.0) L Arterial Blood HCO3 42.6 mmol/L (22.0-26.0) H Arterial Blood Oxygen Saturation 9.3 % (92.0-98.0) L Arterial Blood Base Excess 17.1 Joseluis Test Positive Intake and Output 09/25/16 09/26/16 19:00 07:00 Intake Total 480 ml 480 ml Output Total 475 ml 295 ml Balance 5 ml 185 ml Free Water 120 ml Tube Feeding 360 ml 480 ml Output Urine Total 475 ml 295 ml # Bowel Movements 2 Objective General Appearance: moderate distress, thin EENT: PERRL/EOMI, normal ENT inspection Neck: non-tender, normal alignment, supple Cardiovascular: normal peripheral pulses, normal rate, regular rhythm, no gallop/murmur, no JVD Respiratory/Chest: Mech Vent; respiratory distress, crackles/rales, rhonchi - bilaterally, expiratory wheezing Abdomen: non tender, soft, no organomegaly, no mass, decreased bowel sounds Extremities: normal range of motion Skin: normal pigmentation, warm/dry Assessment/Plan Problem List: (1) Lung nodule (2) DVT (deep venous thrombosis) (3) Acute respiratory failure Assessment & Plan: Cont vent per pulmonary (4) COPD exacerbation Assessment & Plan: Continue IV solumedrol and duoneb. Continue vent per pulmonary. (5) Pneumonia Assessment & Plan: D/C antibiotics per ID Status: not improved TADEO VERDIN Sep 26, 2016 19:03
[2016-09-26] MEDS: LORazepam Inj 2mg/ml 1ml IV PRN (19:56)
[2016-09-27] VITALS (25 sets, daily range): BP systolic 84–122; BP diastolic 60–96
[2016-09-27] MEDS: NovoLOG Insulin Flexpen SUBQ SCH ×5 (00:05→23:55)
[2016-09-27 05:49] LABS: MEAN CORPUSCULAR HEMOGLOBIN 27.3 PG (27.0-31.0); MEAN CORPUSCULAR VOLUME 91 FL (80-99); MEAN PLATELET VOLUME 7.4 FL (6.5-10.1); PLATELET COUNT 227 K/UL (150-450); RED BLOOD COUNT 3.65 M/UL (4.70-6.10); RED CELL DISTRIBUTION WIDTH 15.7 % (11.6-14.8); WHITE BLOOD COUNT 10.1 K/UL (4.8-10.8)
[2016-09-27 06:16] LABS: ALANINE AMINOTRANSFERASE 22 U/L (3-41); ALBUMIN/GLOBULIN RATIO 0.8 (1.0-2.7); ANION GAP 8 (5-15); ASPARTATE AMINO TRANSFERASE 13 U/L (5-40); CALCIUM 9.1 mg/dL (8.6-10.2); CARBON DIOXIDE 35 mEQ/L (20-30); CHLORIDE 108 mEQ/L (98-107); CREATININE 0.7 mg/dL (0.7-1.2); GLOMERULAR FILTRATION RATE > 60 mL/min (>60); HEMOLYSIS 9; MAGNESIUM 2.5 mg/dL (1.7-2.5); PHOSPHORUS 4.1 mg/dL (2.5-4.8); POTASSIUM 4.8 mEQ/L (3.4-4.9); SODIUM 151 mEQ/L (135-145); TOTAL PROTEIN 5.8 g/dL (6.6-8.7)
--- NOTE | 2016-09-27 08:17 | Infectious Diseases Prog Note ---
Assessment/Plan Assessment/Plan ASSESSMENT: 66 y/o male with: // COPD exacerbation r/o HCAP - SCx not sent - CXR 09/26: No infiltrate seen. Lungs are hyperexpanded. Unchanged - negative: influenza // Leukocytosis - resolved, afebrile ( on steroids ) // Acute VDRF - intubated 09/20, may need trach // Severe pulmonary HTN / grade I diastolic dysfunction / mod TR // Pulmonary nodules // Chronic RLE DVT // Tobacco abuse // [facility] resident // Negative MRSA, VRE screens // NKDA // Full Code PLAN: - monitor pt off of ABX ( 09/24 SP amikacin, invanz d# 5 / 5 ) ( 09/21 SP IV vancomycin d# 2 ) - taper steroids per pulm - monitor CBC, temperatures, re-culture if acute change - monitor BMP - monitor CXR - vent support, wean as tolerated. May need trach Subjective Allergies: Coded Allergies: No Known Allergies (Unverified , 06/17/16) Subjective remains afebrile on vent Objective Vital Signs Last 24 Hour Vital Signs Date Time Temp Pulse Resp B/P Pulse Ox O2 Delivery O2 Flow Rate FiO2 09/27/16 07:00 101 18 103/71 99 Mechanical Ventilator 30 09/27/16 06:00 96 18 95/68 99 Mechanical Ventilator 30 09/27/16 05:10 102 16 30 09/27/16 05:00 98.4 95 20 100/65 99 Mechanical Ventilator 30 09/27/16 04:01 99 16 113/85 99 Mechanical Ventilator 30 09/27/16 04:00 98 09/27/16 04:00 97 16 117/79 99 Mechanical Ventilator 30 09/27/16 04:00 30 09/27/16 03:49 101 16 30 09/27/16 03:00 99 16 113/85 99 Mechanical Ventilator 30 09/27/16 02:00 92 16 100/60 99 Mechanical Ventilator 30 09/27/16 01:30 98 16 30 09/27/16 01:00 100 16 95/67 99 Mechanical Ventilator 30 09/27/16 00:00 97 09/27/16 00:00 97 16 118/82 99 Mechanical Ventilator 30 09/27/16 00:00 30 09/26/16 23:04 100 16 98/70 99 Mechanical Ventilator 30 09/26/16 23:00 106 16 30 09/26/16 22:00 94 17 106/83 99 Mechanical Ventilator 30 09/26/16 21:00 103 17 101/81 99 Mechanical Ventilator 30 09/26/16 20:58 103 16 30 09/26/16 20:00 103 09/26/16 20:00 30 09/26/16 20:00 97.7 103 16 101/75 99 Mechanical Ventilator 30 09/26/16 19:30 109 16 30 09/26/16 19:00 103 18 112/80 100 Mechanical Ventilator 30 09/26/16 18:00 97 16 91/75 100 Mechanical Ventilator 30 09/26/16 17:25 94 16 30 09/26/16 17:00 95 20 98/71 100 Mechanical Ventilator 30 09/26/16 16:00 97.5 98 23 122/94 98 Mechanical Ventilator 30 09/26/16 16:00 30 09/26/16 16:00 96 09/26/16 15:08 96 16 30 09/26/16 15:00 91 21 131/85 98 Mechanical Ventilator 30 09/26/16 14:00 95 21 116/92 99 Mechanical Ventilator 30 09/26/16 13:23 100 17 30 09/26/16 13:00 100 19 118/86 98 Mechanical Ventilator 30 09/26/16 12:00 30 09/26/16 12:00 98 09/26/16 12:00 98.6 97 16 111/85 99 Mechanical Ventilator 30 09/26/16 11:02 95 16 30 09/26/16 11:00 95 16 92/81 100 Mechanical Ventilator 30 09/26/16 10:00 97 16 96/78 100 Mechanical Ventilator 30 09/26/16 09:04 91 16 30 09/26/16 09:00 97.6 94 16 94/77 100 Mechanical Ventilator 30 Height (Feet): 6 Height (Inches): 2.00 Weight (Pounds): 127 General Appearance: other - intubated Respiratory/Chest: decreased breath sounds Cardiovascular: normal rate, regular rhythm Abdomen: normal bowel sounds, soft, non tender, non distended Laboratory Tests Test 09/26/16 09:00 09/27/16 04:25 Arterial Blood pH 7.500 (7.350-7.450) Arterial Blood Partial Pressure CO2 55.0 mmHg (35.0-45.0) H Arterial Blood Partial Pressure O2 71.6 mmHg (75.0-100.0) L Arterial Blood HCO3 42.6 mmol/L (22.0-26.0) H Arterial Blood Oxygen Saturation 9.3 % (92.0-98.0) L Arterial Blood Base Excess 17.1 Joseluis Test Positive White Blood Count 10.1 K/UL (4.8-10.8) Red Blood Count 3.65 M/UL (4.70-6.10) L Hemoglobin 10.0 G/DL (14.2-18.0) L Hematocrit 33.2 % (42.0-52.0) L Mean Corpuscular Volume 91 FL (80-99) Mean Corpuscular Hemoglobin 27.3 PG (27.0-31.0) Mean Corpuscular Hemoglobin Concent 30.0 G/DL (32.0-36.0) L Red Cell Distribution Width 15.7 % (11.6-14.8) H Platelet Count 227 K/UL (150-450) Mean Platelet Volume 7.4 FL (6.5-10.1) Neutrophils (%) (Auto) % (45.0-75.0) Lymphocytes (%) (Auto) % (20.0-45.0) Monocytes (%) (Auto) % (1.0-10.0) Eosinophils (%) (Auto) % (0.0-3.0) Basophils (%) (Auto) % (0.0-2.0) Sodium Level 151 mEQ/L (135-145) H Potassium Level 4.8 mEQ/L (3.4-4.9) Chloride Level 108 mEQ/L (98-107) H Carbon Dioxide Level 35 mEQ/L (20-30) H Anion Gap 8 (5-15) Blood Urea Nitrogen 24 mg/dL (7-23) H Creatinine 0.7 mg/dL (0.7-1.2) Estimat Glomerular Filtration Rate > 60 mL/min (>60) Glucose Level 145 mg/dL (74-106) H Calcium Level 9.1 mg/dL (8.6-10.2) Phosphorus Level 4.1 mg/dL (2.5-4.8) Magnesium Level 2.5 mg/dL (1.7-2.5) Total Bilirubin < 0.2 mg/dL (0.0-1.2) Aspartate Amino Transf (AST/SGOT) 13 U/L (5-40) Alanine Aminotransferase (ALT/SGPT) 22 U/L (3-41) Alkaline Phosphatase 77 U/L (40-129) Total Protein 5.8 g/dL (6.6-8.7) L Albumin 2.6 g/dL (3.5-5.2) L Globulin 3.2 g/dL Albumin/Globulin Ratio 0.8 (1.0-2.7) L Current Medications Medications (Trade) Dose Ordered Sig/Shraddha Route PRN Reason Start Time Stop Time Status Last Admin Dose Admin Acetaminophen (Tylenol) 650 mg Q4H PRN ORAL fever>100.5 09/20/16 18:30 10/20/16 18:29 Dextrose (Dextrose 50%) STAT PRN IV Hypoglycemia 09/21/16 16:45 10/21/16 16:44 Heparin Sodium (Porcine) (Heparin 5000 units/ml) 5,000 units EVERY 12 HOURS SUBQ 09/20/16 21:00 10/20/16 20:59 09/26/16 20:45 Insulin Aspart (NovoLOG) start when feeding started Q6HR SUBQ 09/21/16 18:00 10/21/16 17:59 09/27/16 05:42 Lorazepam (Ativan 2mg/ml 1ml) 2 mg Q2H PRN IV For Anxiety 09/20/16 18:30 09/27/16 18:29 09/26/16 19:56 Methylprednisolone Sodium Succinate (Solu-MEDROL) 40 mg EVERY 12 HOURS IVP 09/24/16 21:00 10/24/16 20:59 09/26/16 20:45 Morphine Sulfate (Morphine Sulfate) 4 mg Q4H PRN IVP Severe Pain (Pain Scale 7-10) 09/20/16 18:30 09/27/16 18:29 09/25/16 08:49 Ondansetron HCl (Zofran) 4 mg Q6H PRN IVP Nausea & Vomiting 09/20/16 18:30 10/20/16 18:29 09/25/16 08:49 Pantoprazole (Protonix) 40 mg DAILY IVP 09/25/16 09:00 10/25/16 08:59 09/26/16 09:14 Polyethylene Glycol (Miralax) 17 gm DAILYPRN PRN ORAL Constipation 09/20/16 18:30 10/20/16 18:29 NAOMI GEORGE Sep 27, 2016 08:17
[2016-09-27] MEDS: Solu-MEDROL 40mg Inj IVP SCH ×2 (08:25→20:16)
[2016-09-27] MEDS: Pantoprazole Inj IVP SCH (08:25)
[2016-09-27] MEDS: Heparin 5000 units/ml inj SUBQ SCH ×2 (08:31→20:20)
[2016-09-27 09:29] LABS: ABG ALLEN TEST POSITIVE; ABG BASE EXCESS 14.2
--- NOTE | 2016-09-27 11:11 | Pulmonolgy Critical Care Note ---
Critical Care - Asmt/Plan Problems: (1) Respiratory failure (2) COPD exacerbation (3) Pneumonia (4) Altered mental status Respiratory: monitor respiratory rate, adjust FIO2, CXR, weaning trial Cardiac: continue to monitor HR/BP Renal: F/U I&O, other - add d5w to correct hypernatremia Infectious Disease: check cultures, other - off antibiotics Gastrointestinal: continue feedings/current rate Endocrine: check TSH Neurologic: PRN Ativan, PRN Morphine Prophylaxis: Heparin Time Spent (Minutes): 60 Notes Reviewed: production potter, cardio, renal 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, consultants, rn field case managersap solution manager consultant - Objective Last 24 Hour Vital Signs Date Time Temp Pulse Resp B/P Pulse Ox O2 Delivery O2 Flow Rate FiO2 09/27/16 10:00 95 17 116/82 100 Mechanical Ventilator 30 09/27/16 09:00 95 16 84/69 99 Mechanical Ventilator 30 09/27/16 08:43 99 16 30 09/27/16 08:00 30 09/27/16 08:00 98.3 103 19 94/72 100 Mechanical Ventilator 30 09/27/16 08:00 101 09/27/16 07:57 94 16 30 09/27/16 07:00 101 18 103/71 99 Mechanical Ventilator 30 09/27/16 06:00 96 18 95/68 99 Mechanical Ventilator 30 09/27/16 05:10 102 16 30 09/27/16 05:00 98.4 95 20 100/65 99 Mechanical Ventilator 30 09/27/16 04:01 99 16 113/85 99 Mechanical Ventilator 30 09/27/16 04:00 98 09/27/16 04:00 97 16 117/79 99 Mechanical Ventilator 30 09/27/16 04:00 30 09/27/16 03:49 101 16 30 09/27/16 03:00 99 16 113/85 99 Mechanical Ventilator 30 09/27/16 02:00 92 16 100/60 99 Mechanical Ventilator 30 09/27/16 01:30 98 16 30 09/27/16 01:00 100 16 95/67 99 Mechanical Ventilator 30 09/27/16 00:00 97 09/27/16 00:00 97 16 118/82 99 Mechanical Ventilator 30 09/27/16 00:00 30 09/26/16 23:04 100 16 98/70 99 Mechanical Ventilator 30 09/26/16 23:00 106 16 30 09/26/16 22:00 94 17 106/83 99 Mechanical Ventilator 30 09/26/16 21:00 103 17 101/81 99 Mechanical Ventilator 30 09/26/16 20:58 103 16 30 09/26/16 20:00 103 09/26/16 20:00 30 09/26/16 20:00 97.7 103 16 101/75 99 Mechanical Ventilator 30 09/26/16 19:30 109 16 30 09/26/16 19:00 103 18 112/80 100 Mechanical Ventilator 30 09/26/16 18:00 97 16 91/75 100 Mechanical Ventilator 30 09/26/16 17:25 94 16 30 09/26/16 17:00 95 20 98/71 100 Mechanical Ventilator 30 09/26/16 16:00 97.5 98 23 122/94 98 Mechanical Ventilator 30 09/26/16 16:00 30 09/26/16 16:00 96 09/26/16 15:08 96 16 30 09/26/16 15:00 91 21 131/85 98 Mechanical Ventilator 30 09/26/16 14:00 95 21 116/92 99 Mechanical Ventilator 30 09/26/16 13:23 100 17 30 09/26/16 13:00 100 19 118/86 98 Mechanical Ventilator 30 09/26/16 12:00 30 09/26/16 12:00 98 09/26/16 12:00 98.6 97 16 111/85 99 Mechanical Ventilator 30 Status: awake Condition: critical, grave HEENT: atraumatic, normocephalic Neck: full ROM Lungs: clear, chest wall tender Heart: HR/BP stable, regular Abdomen: non-tender Extremities: no C/C/E, edema Accucheck: 135 Critical Care - Subjective ROS Limited/Unobtainable: Yes ICU Day: 7 Condition: critical FI02: 30 Vent Support Breath Rate: 8 Vent Support Mode: IMV/SIMV Vent Tidal Volume: 600 Sputum Amount: Moderate PEEP: 5.0 PIP: 32 Tube Feeding Amount: 60 I&O: Intake and Output 09/26/16 09/27/16 19:00 07:00 Intake Total 850 ml 900 ml Output Total 390 ml 295 ml Balance 460 ml 605 ml Free Water 180 ml 180 ml Tube Feeding 640 ml 720 ml Other 30 ml Output Urine Total 390 ml 295 ml # Bowel Movements 1 CXR: no change, ET in good position ET-Tube: 8.0 ET Position: 24 Labs: Laboratory Tests Test 09/27/16 04:25 09/27/16 09:20 White Blood Count 10.1 K/UL (4.8-10.8) Red Blood Count 3.65 M/UL (4.70-6.10) L Hemoglobin 10.0 G/DL (14.2-18.0) L Hematocrit 33.2 % (42.0-52.0) L Mean Corpuscular Volume 91 FL (80-99) Mean Corpuscular Hemoglobin 27.3 PG (27.0-31.0) Mean Corpuscular Hemoglobin Concent 30.0 G/DL (32.0-36.0) L Red Cell Distribution Width 15.7 % (11.6-14.8) H Platelet Count 227 K/UL (150-450) Mean Platelet Volume 7.4 FL (6.5-10.1) Neutrophils (%) (Auto) % (45.0-75.0) Lymphocytes (%) (Auto) % (20.0-45.0) Monocytes (%) (Auto) % (1.0-10.0) Eosinophils (%) (Auto) % (0.0-3.0) Basophils (%) (Auto) % (0.0-2.0) Sodium Level 151 mEQ/L (135-145) H Potassium Level 4.8 mEQ/L (3.4-4.9) Chloride Level 108 mEQ/L (98-107) H Carbon Dioxide Level 35 mEQ/L (20-30) H Anion Gap 8 (5-15) Blood Urea Nitrogen 24 mg/dL (7-23) H Creatinine 0.7 mg/dL (0.7-1.2) Estimat Glomerular Filtration Rate > 60 mL/min (>60) Glucose Level 145 mg/dL (74-106) H Calcium Level 9.1 mg/dL (8.6-10.2) Phosphorus Level 4.1 mg/dL (2.5-4.8) Magnesium Level 2.5 mg/dL (1.7-2.5) Total Bilirubin < 0.2 mg/dL (0.0-1.2) Aspartate Amino Transf (AST/SGOT) 13 U/L (5-40) Alanine Aminotransferase (ALT/SGPT) 22 U/L (3-41) Alkaline Phosphatase 77 U/L (40-129) Total Protein 5.8 g/dL (6.6-8.7) L Albumin 2.6 g/dL (3.5-5.2) L Globulin 3.2 g/dL Albumin/Globulin Ratio 0.8 (1.0-2.7) L Arterial Blood pH 7.490 (7.350-7.450) Arterial Blood Partial Pressure CO2 53.0 mmHg (35.0-45.0) H Arterial Blood Partial Pressure O2 80.0 mmHg (75.0-100.0) Arterial Blood HCO3 39.5 mmol/L (22.0-26.0) H Arterial Blood Oxygen Saturation 95.2 % (92.0-98.0) Arterial Blood Base Excess 14.2 Joseluis Test Positive REN WRIGHT Sep 27, 2016 11:11
--- NOTE | 2016-09-27 11:33 | Diagnostic Imaging Report ---
Indication: DYSPNEA Technique: One view of the chest Comparison: 08/29/2016 Findings: Lungs are hyperinflated. Stable satisfactory position of endotracheal tube. Stable position of nasogastric tube, tip barely within the stomach, proximal port in the distal esophagus. No new infiltrates Impression: Unchanged, over one day, findings as above. Note high position of nasogastric tube. Advancement recommended. This was discussed with patient's nurse at the time of interpretation
[2016-09-27] MEDS ORDERED: NS 275ml ONE (14:16)
--- NOTE | 2016-09-27 15:35 | Diagnostic Imaging Report ---
Indication: Post orogastric tube repositioning Technique: Supine view of the abdomen Comparison: Chest radiographic over the same day Findings: Interim advancement of orogastric tube, tip now at the level gastric body, proximal port beyond the expected level of the gastroesophageal junction. Impression: Improved and now satisfactory position orogastric tube Patient's nurse notified at the time of interpretation
--- NOTE | 2016-09-27 18:18 | Internal Med Progress Note ---
Subjective Date of Service: Sep 27, 2016 Physician Name Tadeo Verdin Attending Physician Steve Rader MD Current Medications Medications (Trade) Dose Ordered Sig/Shraddha Route PRN Reason Start Time Stop Time Status Last Admin Dose Admin Acetaminophen (Tylenol) 650 mg Q4H PRN ORAL fever>100.5 09/20/16 18:30 10/20/16 18:29 Dextrose (D5W 1000ml) 1,000 ml @ 50 mls/hr Q20H IV 09/27/16 11:30 10/27/16 11:29 09/27/16 12:24 Dextrose (Dextrose 50%) STAT PRN IV Hypoglycemia 09/21/16 16:45 10/21/16 16:44 Heparin Sodium (Porcine) (Heparin 5000 units/ml) 5,000 units EVERY 12 HOURS SUBQ 09/20/16 21:00 10/20/16 20:59 09/27/16 08:31 Insulin Aspart (NovoLOG) start when feeding started Q6HR SUBQ 09/21/16 18:00 10/21/16 17:59 09/27/16 17:36 Lorazepam (Ativan 2mg/ml 1ml) 2 mg Q2H PRN IV For Anxiety 09/20/16 18:30 09/27/16 18:29 09/26/16 19:56 Methylprednisolone Sodium Succinate (Solu-MEDROL) 40 mg EVERY 12 HOURS IVP 09/24/16 21:00 10/24/16 20:59 09/27/16 08:25 Morphine Sulfate (Morphine Sulfate) 4 mg Q4H PRN IVP Severe Pain (Pain Scale 7-10) 09/20/16 18:30 09/27/16 18:29 09/25/16 08:49 Ondansetron HCl (Zofran) 4 mg Q6H PRN IVP Nausea & Vomiting 09/20/16 18:30 10/20/16 18:29 09/25/16 08:49 Pantoprazole 40 mg 40 mg DAILY IVP 09/25/16 09:00 10/25/16 08:59 09/27/16 08:25 Polyethylene Glycol (Miralax) 17 gm DAILYPRN PRN ORAL Constipation 09/20/16 18:30 10/20/16 18:29 Allergies: Coded Allergies: No Known Allergies (Unverified , 12/12/16) ROS Limited/Unobtainable: Yes Subjective 66 YO M admitted with respiratory failure. ICU. Intubated and sedated. Cover for Int Wilder-Dr Rader. Objective Last Vital Signs Date Time Temp Pulse Resp B/P Pulse Ox O2 Delivery O2 Flow Rate FiO2 09/27/16 18:00 97 16 112/76 97 Mechanical Ventilator 30 09/27/16 15:58 97.5 09/22/16 19:13 15.0 Laboratory Tests Test 09/27/16 04:25 09/27/16 09:20 White Blood Count 10.1 K/UL (4.8-10.8) Red Blood Count 3.65 M/UL (4.70-6.10) L Hemoglobin 10.0 G/DL (14.2-18.0) L Hematocrit 33.2 % (42.0-52.0) L Mean Corpuscular Volume 91 FL (80-99) Mean Corpuscular Hemoglobin 27.3 PG (27.0-31.0) Mean Corpuscular Hemoglobin Concent 30.0 G/DL (32.0-36.0) L Red Cell Distribution Width 15.7 % (11.6-14.8) H Platelet Count 227 K/UL (150-450) Mean Platelet Volume 7.4 FL (6.5-10.1) Neutrophils (%) (Auto) % (45.0-75.0) Lymphocytes (%) (Auto) % (20.0-45.0) Monocytes (%) (Auto) % (1.0-10.0) Eosinophils (%) (Auto) % (0.0-3.0) Basophils (%) (Auto) % (0.0-2.0) Sodium Level 151 mEQ/L (135-145) H Potassium Level 4.8 mEQ/L (3.4-4.9) Chloride Level 108 mEQ/L (98-107) H Carbon Dioxide Level 35 mEQ/L (20-30) H Anion Gap 8 (5-15) Blood Urea Nitrogen 24 mg/dL (7-23) H Creatinine 0.7 mg/dL (0.7-1.2) Estimat Glomerular Filtration Rate > 60 mL/min (>60) Glucose Level 145 mg/dL (74-106) H Calcium Level 9.1 mg/dL (8.6-10.2) Phosphorus Level 4.1 mg/dL (2.5-4.8) Magnesium Level 2.5 mg/dL (1.7-2.5) Total Bilirubin < 0.2 mg/dL (0.0-1.2) Aspartate Amino Transf (AST/SGOT) 13 U/L (5-40) Alanine Aminotransferase (ALT/SGPT) 22 U/L (3-41) Alkaline Phosphatase 77 U/L (40-129) Total Protein 5.8 g/dL (6.6-8.7) L Albumin 2.6 g/dL (3.5-5.2) L Globulin 3.2 g/dL Albumin/Globulin Ratio 0.8 (1.0-2.7) L Arterial Blood pH 7.490 (7.350-7.450) Arterial Blood Partial Pressure CO2 53.0 mmHg (35.0-45.0) H Arterial Blood Partial Pressure O2 80.0 mmHg (75.0-100.0) Arterial Blood HCO3 39.5 mmol/L (22.0-26.0) H Arterial Blood Oxygen Saturation 95.2 % (92.0-98.0) Arterial Blood Base Excess 14.2 Joseluis Test Positive Intake and Output 09/26/16 09/27/16 19:00 07:00 Intake Total 850 ml 900 ml Output Total 390 ml 295 ml Balance 460 ml 605 ml Free Water 180 ml 180 ml Tube Feeding 640 ml 720 ml Other 30 ml Output Urine Total 390 ml 295 ml # Bowel Movements 1 Objective General Appearance: moderate distress, thin EENT: PERRL/EOMI, normal ENT inspection Neck: non-tender, normal alignment, supple Cardiovascular: normal peripheral pulses, normal rate, regular rhythm, no gallop/murmur, no JVD Respiratory/Chest: Mech Vent; respiratory distress, crackles/rales, rhonchi - bilaterally, expiratory wheezing Abdomen: non tender, soft, no organomegaly, no mass, decreased bowel sounds Extremities: normal range of motion Skin: normal pigmentation, warm/dry Assessment/Plan Problem List: (1) Lung nodule (2) DVT (deep venous thrombosis) (3) Acute respiratory failure Assessment & Plan: Cont vent per pulmonary (4) COPD exacerbation Assessment & Plan: Continue IV solumedrol and duoneb. Continue vent per pulmonary. (5) Pneumonia Assessment & Plan: D/C antibiotics per ID Status: not improved TADEO VERDIN Sep 27, 2016 18:18
[2016-09-27] MEDS ORDERED: DuoNeb 0.5-3(2.5)mg/3ml neb HHN PRN (22:00)
[2016-09-28] VITALS (24 sets, daily range): BP systolic 89–124; BP diastolic 9–84
[2016-09-28] MEDS: LORazepam Inj 2mg/ml 1ml IV PRN ×2 (01:34→11:09)
[2016-09-28 06:03] LABS: BASOPHILS % (AUTO) 0.6 % (0.0-2.0); LYMPHOCYTES % (AUTO) 7.7 % (20.0-45.0); MEAN CORPUSCULAR HEMOGLOBIN 27.7 PG (27.0-31.0); MEAN CORPUSCULAR HGB CONC 30.4 G/DL (32.0-36.0); MEAN CORPUSCULAR VOLUME 91 FL (80-99); MEAN PLATELET VOLUME 6.6 FL (6.5-10.1); MONOCYTES % (AUTO) 7.8 % (1.0-10.0); NEUTROPHILS % (AUTO) 83.9 % (45.0-75.0); PLATELET COUNT 296 K/UL (150-450); RED BLOOD COUNT 3.37 M/UL (4.70-6.10); RED CELL DISTRIBUTION WIDTH 15.5 % (11.6-14.8)
[2016-09-28] MEDS: NovoLOG Insulin Flexpen SUBQ SCH ×3 (06:13→17:56)
[2016-09-28 06:33] LABS: ANION GAP 6 (5-15); CARBON DIOXIDE 36 mEQ/L (20-30); CHLORIDE 103 mEQ/L (98-107); CREATININE 0.7 mg/dL (0.7-1.2); GLOMERULAR FILTRATION RATE > 60 mL/min (>60); HEMOLYSIS 2; POTASSIUM 4.6 mEQ/L (3.4-4.9); SODIUM 145 mEQ/L (135-145)
--- NOTE | 2016-09-28 08:58 | Pulmonolgy Critical Care Note ---
Critical Care - Asmt/Plan Problems: (1) Respiratory failure (2) COPD exacerbation (3) Pneumonia (4) Altered mental status Respiratory: monitor respiratory rate, adjust FIO2, CXR, weaning trial Cardiac: continue to monitor HR/BP Renal: F/U I&O Infectious Disease: continue antibiotics Gastrointestinal: continue feedings/current rate Endocrine: monitor blood sugar, check HgA1C, continue sliding scale insulin Hematologic: monitor H/H, transfuse if hgb<8.5 Neurologic: PRN Morphine, keep patient comfortable Affect: PRN ativan Prophylaxis: Protonix, Heparin Disposition: keep in ICU Notes Reviewed: cardio, renal 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, consultants, case resolution specialistvaluation manager - Objective Last 24 Hour Vital Signs Date Time Temp Pulse Resp B/P Pulse Ox O2 Delivery O2 Flow Rate FiO2 09/28/16 08:00 30 09/28/16 08:00 97.2 79 16 112/77 100 Mechanical Ventilator 30 09/28/16 08:00 79 09/28/16 07:20 77 16 30 09/28/16 07:01 88 16 95/75 100 Mechanical Ventilator 09/28/16 06:00 80 16 95/75 100 Mechanical Ventilator 09/28/16 05:20 81 16 30 09/28/16 05:00 80 16 99/70 100 Mechanical Ventilator 09/28/16 04:00 98.1 78 16 99/70 100 Mechanical Ventilator 09/28/16 04:00 78 09/28/16 04:00 30 09/28/16 03:07 77 16 30 09/28/16 03:00 72 16 98/84 100 Mechanical Ventilator 09/28/16 02:00 89 16 117/73 100 Mechanical Ventilator 09/28/16 01:00 98.0 88 16 120/81 100 Mechanical Ventilator 09/28/16 00:57 88 18 30 09/28/16 00:00 89 16 117/73 100 Mechanical Ventilator 24 09/28/16 00:00 86 09/28/16 00:00 30 09/27/16 23:00 77 16 30 09/27/16 23:00 94 16 95/66 100 Mechanical Ventilator 30 09/27/16 22:00 89 16 91/67 100 Mechanical Ventilator 09/27/16 21:28 94 16 99 Mechanical Ventilator 30 09/27/16 21:18 98 16 30 09/27/16 21:00 98.1 95 18 101/79 98 Mechanical Ventilator 30 09/27/16 20:00 96 16 103/79 98 Mechanical Ventilator 30 09/27/16 20:00 96 09/27/16 20:00 30 09/27/16 19:00 94 18 101/78 97 Mechanical Ventilator 30 09/27/16 18:43 98 16 30 09/27/16 18:00 97 16 112/76 97 Mechanical Ventilator 30 09/27/16 17:00 98 16 102/67 99 Mechanical Ventilator 30 09/27/16 16:56 95 16 30 09/27/16 16:00 90 09/27/16 16:00 30 09/27/16 15:58 97.5 95 18 102/72 100 Mechanical Ventilator 30 09/27/16 15:00 92 16 85/71 99 Mechanical Ventilator 30 09/27/16 14:48 93 15 30 09/27/16 14:00 91 16 98/75 100 Mechanical Ventilator 30 09/27/16 13:00 94 16 90/74 100 Mechanical Ventilator 30 09/27/16 13:00 94 16 30 09/27/16 12:00 30 09/27/16 12:00 98.5 97 17 100/73 99 Mechanical Ventilator 30 09/27/16 11:32 103 09/27/16 11:20 108 17 30 09/27/16 11:00 105 19 122/96 100 Mechanical Ventilator 30 09/27/16 10:00 95 17 116/82 100 Mechanical Ventilator 30 09/27/16 09:00 95 16 84/69 99 Mechanical Ventilator 30 Status: awake Condition: critical HEENT: atraumatic Heart: HR/BP stable, HR/BP unstable Abdomen: soft, non-tender Extremities: no C/C/E, edema Decubiti: location Accucheck: 189 Critical Care - Subjective ROS Limited/Unobtainable: Yes ICU Day: 8 Intubation Day: 8 Condition: critical FI02: 30 Vent Support Breath Rate: 16 Vent Support Mode: AC Vent Tidal Volume: 600 Sputum Amount: Moderate PEEP: 5.0 PIP: 31 Tube Feeding Amount: 60 I&O: Intake and Output 09/27/16 09/28/16 19:00 07:00 Intake Total 1365 ml 1280 ml Output Total 556 ml 910 ml Balance 809 ml 370 ml Free Water 240 ml 60 ml IV Total 385 ml 500 ml Tube Feeding 720 ml 720 ml Other 20 ml Output Urine Total 555 ml 910 ml Stool Total 1 ml # Bowel Movements 1 CXR: no change ET-Tube: 8.0 ET Position: 24 Labs: Laboratory Tests Test 09/27/16 09:20 09/28/16 05:30 Arterial Blood pH 7.490 (7.350-7.450) Arterial Blood Partial Pressure CO2 53.0 mmHg (35.0-45.0) H Arterial Blood Partial Pressure O2 80.0 mmHg (75.0-100.0) Arterial Blood HCO3 39.5 mmol/L (22.0-26.0) H Arterial Blood Oxygen Saturation 95.2 % (92.0-98.0) Arterial Blood Base Excess 14.2 Joseluis Test Positive White Blood Count 11.0 K/UL (4.8-10.8) H Red Blood Count 3.37 M/UL (4.70-6.10) L Hemoglobin 9.3 G/DL (14.2-18.0) L Hematocrit 30.7 % (42.0-52.0) L Mean Corpuscular Volume 91 FL (80-99) Mean Corpuscular Hemoglobin 27.7 PG (27.0-31.0) Mean Corpuscular Hemoglobin Concent 30.4 G/DL (32.0-36.0) L Red Cell Distribution Width 15.5 % (11.6-14.8) H Platelet Count 296 K/UL (150-450) Mean Platelet Volume 6.6 FL (6.5-10.1) Neutrophils (%) (Auto) 83.9 % (45.0-75.0) H Lymphocytes (%) (Auto) 7.7 % (20.0-45.0) L Monocytes (%) (Auto) 7.8 % (1.0-10.0) Eosinophils (%) (Auto) 0.0 % (0.0-3.0) Basophils (%) (Auto) 0.6 % (0.0-2.0) Sodium Level 145 mEQ/L (135-145) Potassium Level 4.6 mEQ/L (3.4-4.9) Chloride Level 103 mEQ/L (98-107) Carbon Dioxide Level 36 mEQ/L (20-30) H Anion Gap 6 (5-15) Blood Urea Nitrogen 20 mg/dL (7-23) Creatinine 0.7 mg/dL (0.7-1.2) Estimat Glomerular Filtration Rate > 60 mL/min (>60) Glucose Level 171 mg/dL (74-106) H Calcium Level 9.0 mg/dL (8.6-10.2) REN WRIGHT Sep 28, 2016 08:58
--- NOTE | 2016-09-28 08:58 | Infectious Diseases Prog Note ---
Assessment/Plan Assessment/Plan ASSESSMENT: 66 y/o male with: // COPD exacerbation r/o HCAP - SCx not sent - CXR 09/26: No infiltrate seen. Lungs are hyperexpanded. Unchanged - negative: influenza // Leukocytosis - recurrent, mild, afebrile ( on steroids ) // Acute VDRF - intubated 09/20, may need trach // Severe pulmonary HTN / grade I diastolic dysfunction / mod TR // Pulmonary nodules // Chronic RLE DVT // Tobacco abuse // [place] resident // Negative MRSA, VRE screens // NKDA // Full Code PLAN: - monitor pt off of ABX ( 09/24 SP amikacin, invanz d# 5 / 5 ) ( 09/21 SP IV vancomycin d# 2 ) - taper steroids per pulm - monitor CBC, temperatures, re-culture if acute change - monitor BMP - monitor CXR - vent support, wean as tolerated. May need trach Subjective Allergies: Coded Allergies: No Known Allergies (Unverified , 06/17/16) Subjective remains afebrile on vent Objective Vital Signs Last 24 Hour Vital Signs Date Time Temp Pulse Resp B/P Pulse Ox O2 Delivery O2 Flow Rate FiO2 09/28/16 08:00 30 09/28/16 08:00 97.2 79 16 112/77 100 Mechanical Ventilator 09/28/16 08:00 79 09/28/16 07:20 77 16 30 09/28/16 07:01 88 16 95/75 100 Mechanical Ventilator 09/28/16 06:00 80 16 95/75 100 Mechanical Ventilator 09/28/16 05:20 81 16 30 09/28/16 05:00 80 16 99/70 100 Mechanical Ventilator 24 09/28/16 04:00 98.1 78 16 99/70 100 Mechanical Ventilator 24 09/28/16 04:00 78 09/28/16 04:00 30 09/28/16 03:07 77 16 30 09/28/16 03:00 72 16 98/84 100 Mechanical Ventilator 09/28/16 02:00 89 16 117/73 100 Mechanical Ventilator 09/28/16 01:00 98.0 88 16 120/81 100 Mechanical Ventilator 09/28/16 00:57 88 18 30 09/28/16 00:00 89 16 117/73 100 Mechanical Ventilator 09/28/16 00:00 86 3/25/17 00:00 30 09/27/16 23:00 77 16 30 09/27/16 23:00 94 16 95/66 100 Mechanical Ventilator 30 09/27/16 22:00 89 16 91/67 100 Mechanical Ventilator 30 09/27/16 21:28 94 16 99 Mechanical Ventilator 30 09/27/16 21:18 98 16 30 09/27/16 21:00 98.1 95 18 101/79 98 Mechanical Ventilator 30 09/27/16 20:00 96 16 103/79 98 Mechanical Ventilator 30 09/27/16 20:00 96 09/27/16 20:00 30 09/27/16 19:00 94 18 101/78 97 Mechanical Ventilator 30 09/27/16 18:43 98 16 30 09/27/16 18:00 97 16 112/76 97 Mechanical Ventilator 30 09/27/16 17:00 98 16 102/67 99 Mechanical Ventilator 30 09/27/16 16:56 95 16 30 09/27/16 16:00 90 09/27/16 16:00 30 09/27/16 15:58 97.5 95 18 102/72 100 Mechanical Ventilator 30 09/27/16 15:00 92 16 85/71 99 Mechanical Ventilator 30 09/27/16 14:48 93 15 30 09/27/16 14:00 91 16 98/75 100 Mechanical Ventilator 30 09/27/16 13:00 94 16 90/74 100 Mechanical Ventilator 30 09/27/16 13:00 94 16 30 09/27/16 12:00 30 09/27/16 12:00 98.5 97 17 100/73 99 Mechanical Ventilator 30 09/27/16 11:32 103 09/27/16 11:20 108 17 30 09/27/16 11:00 105 19 122/96 100 Mechanical Ventilator 30 09/27/16 10:00 95 17 116/82 100 Mechanical Ventilator 30 09/27/16 09:00 95 16 84/69 99 Mechanical Ventilator 30 Height (Feet): 6 Height (Inches): 2.00 Weight (Pounds): 127 General Appearance: other - intubated Respiratory/Chest: decreased breath sounds Cardiovascular: normal rate, regular rhythm Abdomen: normal bowel sounds, soft, non tender, non distended Laboratory Tests Test 09/27/16 09:20 09/28/16 05:30 Arterial Blood pH 7.490 (7.350-7.450) Arterial Blood Partial Pressure CO2 53.0 mmHg (35.0-45.0) H Arterial Blood Partial Pressure O2 80.0 mmHg (75.0-100.0) Arterial Blood HCO3 39.5 mmol/L (22.0-26.0) H Arterial Blood Oxygen Saturation 95.2 % (92.0-98.0) Arterial Blood Base Excess 14.2 Joseluis Test Positive White Blood Count 11.0 K/UL (4.8-10.8) H Red Blood Count 3.37 M/UL (4.70-6.10) L Hemoglobin 9.3 G/DL (14.2-18.0) L Hematocrit 30.7 % (42.0-52.0) L Mean Corpuscular Volume 91 FL (80-99) Mean Corpuscular Hemoglobin 27.7 PG (27.0-31.0) Mean Corpuscular Hemoglobin Concent 30.4 G/DL (32.0-36.0) L Red Cell Distribution Width 15.5 % (11.6-14.8) H Platelet Count 296 K/UL (150-450) Mean Platelet Volume 6.6 FL (6.5-10.1) Neutrophils (%) (Auto) 83.9 % (45.0-75.0) H Lymphocytes (%) (Auto) 7.7 % (20.0-45.0) L Monocytes (%) (Auto) 7.8 % (1.0-10.0) Eosinophils (%) (Auto) 0.0 % (0.0-3.0) Basophils (%) (Auto) 0.6 % (0.0-2.0) Sodium Level 145 mEQ/L (135-145) Potassium Level 4.6 mEQ/L (3.4-4.9) Chloride Level 103 mEQ/L (98-107) Carbon Dioxide Level 36 mEQ/L (20-30) H Anion Gap 6 (5-15) Blood Urea Nitrogen 20 mg/dL (7-23) Creatinine 0.7 mg/dL (0.7-1.2) Estimat Glomerular Filtration Rate > 60 mL/min (>60) Glucose Level 171 mg/dL (74-106) H Calcium Level 9.0 mg/dL (8.6-10.2) Current Medications Medications (Trade) Dose Ordered Sig/Shraddha Route PRN Reason Start Time Stop Time Status Last Admin Dose Admin Acetaminophen (Tylenol) 650 mg Q4H PRN ORAL fever>100.5 09/20/16 18:30 10/20/16 18:29 Albuterol/ Ipratropium (DuoNeb 0.5-3(2.5)mg/3ml) 3 ml Q4HR PRN HHN Shortness of Breath 09/27/16 22:00 10/02/16 21:59 09/27/16 21:28 Dextrose (D5W 1000ml) 1,000 ml @ 50 mls/hr Q20H IV 09/27/16 11:30 10/27/16 11:29 09/28/16 04:45 Dextrose (Dextrose 50%) STAT PRN IV Hypoglycemia 09/21/16 16:45 10/21/16 16:44 Heparin Sodium (Porcine) (Heparin 5000 units/ml) 5,000 units EVERY 12 HOURS SUBQ 09/20/16 21:00 10/20/16 20:59 09/27/16 20:20 Insulin Aspart (NovoLOG) start when feeding started Q6HR SUBQ 09/21/16 18:00 10/21/16 17:59 09/28/16 06:13 Lorazepam (Ativan 2mg/ml 1ml) 2 mg Q2H PRN IV For Anxiety 09/28/16 00:45 10/05/16 00:44 09/28/16 01:34 Methylprednisolone Sodium Succinate (Solu-MEDROL) 40 mg EVERY 12 HOURS IVP 09/24/16 21:00 10/24/16 20:59 09/27/16 20:16 Ondansetron HCl (Zofran) 4 mg Q6H PRN IVP Nausea & Vomiting 09/20/16 18:30 10/20/16 18:29 09/25/16 08:49 Pantoprazole 40 mg 40 mg DAILY IVP 09/25/16 09:00 10/25/16 08:59 09/27/16 08:25 Polyethylene Glycol (Miralax) 17 gm DAILYPRN PRN ORAL Constipation 09/20/16 18:30 10/20/16 18:29 NAOMI GEORGE 25, 2017 08:57
[2016-09-28] MEDS: Pantoprazole Inj IVP SCH (09:49)
[2016-09-28] MEDS: Solu-MEDROL 40mg Inj IVP SCH ×2 (09:49→20:39)
[2016-09-28] MEDS: Heparin 5000 units/ml inj SUBQ SCH ×2 (09:51→20:41)
--- NOTE | 2016-09-28 15:56 | Internal Med Progress Note ---
Subjective Date of Service: Sep 28, 2016 Physician Name Verdin,Tadeo Attending Physician Steve Rader MD Current Medications Medications (Trade) Dose Ordered Sig/Shraddha Route PRN Reason Start Time Stop Time Status Last Admin Dose Admin Acetaminophen (Tylenol) 650 mg Q4H PRN ORAL fever>100.5 09/20/16 18:30 10/20/16 18:29 Albuterol/ Ipratropium (DuoNeb 0.5-3(2.5)mg/3ml) 3 ml Q4HR PRN HHN Shortness of Breath 09/27/16 22:00 10/02/16 21:59 09/27/16 21:28 Dextrose (D5W 1000ml) 1,000 ml @ 50 mls/hr Q20H IV 09/27/16 11:30 10/27/16 11:29 09/28/16 04:45 Dextrose (Dextrose 50%) STAT PRN IV Hypoglycemia 09/21/16 16:45 10/21/16 16:44 Heparin Sodium (Porcine) (Heparin 5000 units/ml) 5,000 units EVERY 12 HOURS SUBQ 09/20/16 21:00 10/20/16 20:59 09/28/16 09:51 Insulin Aspart (NovoLOG) start when feeding started Q6HR SUBQ 09/21/16 18:00 10/21/16 17:59 09/28/16 12:18 Lorazepam (Ativan 2mg/ml 1ml) 2 mg Q2H PRN IV For Anxiety 09/28/16 00:45 10/05/16 00:44 09/28/16 11:09 Methylprednisolone Sodium Succinate (Solu-MEDROL) 40 mg EVERY 12 HOURS IVP 09/24/16 21:00 10/24/16 20:59 09/28/16 09:49 Ondansetron HCl (Zofran) 4 mg Q6H PRN IVP Nausea & Vomiting 09/20/16 18:30 10/20/16 18:29 09/25/16 08:49 Pantoprazole 40 mg 40 mg DAILY IVP 09/25/16 09:00 10/25/16 08:59 09/28/16 09:49 Polyethylene Glycol (Miralax) 17 gm DAILYPRN PRN ORAL Constipation 09/20/16 18:30 10/20/16 18:29 Allergies: Coded Allergies: No Known Allergies (Unverified , 06/17/16) ROS Limited/Unobtainable: Yes Subjective 66 YO M admitted with respiratory failure. ICU. Intubated and sedated. Cover for Int Wilder-Dr Rader. Objective Last Vital Signs Date Time Temp Pulse Resp B/P Pulse Ox O2 Delivery O2 Flow Rate FiO2 09/28/16 15:00 88 16 90/72 100 Mechanical Ventilator 30 09/28/16 12:00 98.0 09/22/16 19:13 15.0 Laboratory Tests Test 09/28/16 05:30 White Blood Count 11.0 K/UL (4.8-10.8) H Red Blood Count 3.37 M/UL (4.70-6.10) L Hemoglobin 9.3 G/DL (14.2-18.0) L Hematocrit 30.7 % (42.0-52.0) L Mean Corpuscular Volume 91 FL (80-99) Mean Corpuscular Hemoglobin 27.7 PG (27.0-31.0) Mean Corpuscular Hemoglobin Concent 30.4 G/DL (32.0-36.0) L Red Cell Distribution Width 15.5 % (11.6-14.8) H Platelet Count 296 K/UL (150-450) Mean Platelet Volume 6.6 FL (6.5-10.1) Neutrophils (%) (Auto) 83.9 % (45.0-75.0) H Lymphocytes (%) (Auto) 7.7 % (20.0-45.0) L Monocytes (%) (Auto) 7.8 % (1.0-10.0) Eosinophils (%) (Auto) 0.0 % (0.0-3.0) Basophils (%) (Auto) 0.6 % (0.0-2.0) Sodium Level 145 mEQ/L (135-145) Potassium Level 4.6 mEQ/L (3.4-4.9) Chloride Level 103 mEQ/L (98-107) Carbon Dioxide Level 36 mEQ/L (20-30) H Anion Gap 6 (5-15) Blood Urea Nitrogen 20 mg/dL (7-23) Creatinine 0.7 mg/dL (0.7-1.2) Estimat Glomerular Filtration Rate > 60 mL/min (>60) Glucose Level 171 mg/dL (74-106) H Calcium Level 9.0 mg/dL (8.6-10.2) Intake and Output 09/27/16 09/28/16 19:00 07:00 Intake Total 1365 ml 1280 ml Output Total 556 ml 910 ml Balance 809 ml 370 ml Free Water 240 ml 60 ml IV Total 385 ml 500 ml Tube Feeding 720 ml 720 ml Other 20 ml Output Urine Total 555 ml 910 ml Stool Total 1 ml # Bowel Movements 1 Objective General Appearance: moderate distress, thin EENT: PERRL/EOMI, normal ENT inspection Neck: non-tender, normal alignment, supple Cardiovascular: normal peripheral pulses, normal rate, regular rhythm, no gallop/murmur, no JVD Respiratory/Chest: Mech Vent; respiratory distress, crackles/rales, rhonchi - bilaterally, expiratory wheezing Abdomen: non tender, soft, no organomegaly, no mass, decreased bowel sounds Extremities: normal range of motion Skin: normal pigmentation, warm/dry Assessment/Plan Problem List: (1) Lung nodule (2) DVT (deep venous thrombosis) (3) Acute respiratory failure Assessment & Plan: Cont vent per pulmonary (4) COPD exacerbation Assessment & Plan: Continue IV solumedrol and duoneb. Continue vent per pulmonary. (5) Pneumonia Assessment & Plan: D/C antibiotics per ID Status: not improved TADEO VERDIN Sep 28, 2016 15:56
[2016-09-29] VITALS (25 sets, daily range): BP systolic 89–129; BP diastolic 47–75
[2016-09-29] MEDS: NovoLOG Insulin Flexpen SUBQ SCH ×5 (01:20→23:52)
[2016-09-29] MEDS: LORazepam Inj 2mg/ml 1ml IV PRN ×2 (01:23→20:37)
[2016-09-29 04:54] LABS: MEAN CORPUSCULAR HEMOGLOBIN 28.6 PG (27.0-31.0); MEAN CORPUSCULAR HGB CONC 31.4 G/DL (32.0-36.0); MEAN CORPUSCULAR VOLUME 91 FL (80-99); MEAN PLATELET VOLUME 6.9 FL (6.5-10.1); PLATELET COUNT 312 K/UL (150-450); RED CELL DISTRIBUTION WIDTH 15.1 % (11.6-14.8); WHITE BLOOD COUNT 10.7 K/UL (4.8-10.8)
[2016-09-29 05:54] LABS: ALANINE AMINOTRANSFERASE 24 U/L (3-41); ALBUMIN/GLOBULIN RATIO 0.9 (1.0-2.7); ANION GAP 6 (5-15); ASPARTATE AMINO TRANSFERASE 13 U/L (5-40); CARBON DIOXIDE 36 mEQ/L (20-30); CHLORIDE 100 mEQ/L (98-107); CREATININE 0.6 mg/dL (0.7-1.2); GLOMERULAR FILTRATION RATE > 60 mL/min (>60); HEMOLYSIS 1; MAGNESIUM 2.6 mg/dL (1.7-2.5); PHOSPHORUS 3.7 mg/dL (2.5-4.8); POTASSIUM 5.1 mEQ/L (3.4-4.9); SODIUM 142 mEQ/L (135-145); TOTAL PROTEIN 5.9 g/dL (6.6-8.7)
[2016-09-29 08:41] LABS: ABG BASE EXCESS 11.7; ABG PCO2 59.6 mmHg (35.0-45.0)
[2016-09-29 08:44] LABS: ABG ALLEN TEST POSITIVE
--- NOTE | 2016-09-29 08:56 | Infectious Diseases Prog Note ---
Assessment/Plan Assessment/Plan ASSESSMENT: 66 y/o male with: // COPD exacerbation r/o HCAP - SCx not sent - CXR 09/26: No infiltrate seen. Lungs are hyperexpanded. Unchanged - negative: influenza // Leukocytosis - resolved, afebrile ( on steroids ) // Acute VDRF - intubated 09/20, may need trach // Severe pulmonary HTN / grade I diastolic dysfunction / mod TR // Pulmonary nodules // Chronic RLE DVT // Tobacco abuse // [place] resident // Negative MRSA, VRE screens // NKDA // Full Code PLAN: - monitor pt off of ABX ( 09/24 SP amikacin, invanz d# 5 / 5 ) ( 09/21 SP IV vancomycin d# 2 ) - taper steroids per pulm - monitor CBC, temperatures, re-culture if acute change - monitor BMP - monitor CXR - vent support, wean as tolerated. May need trach Subjective Allergies: Coded Allergies: No Known Allergies (Unverified , 06/17/16) Subjective remains afebrile on vent Objective Vital Signs Last 24 Hour Vital Signs Date Time Temp Pulse Resp B/P Pulse Ox O2 Delivery O2 Flow Rate FiO2 09/29/16 08:00 97.1 78 21 129/54 98 Mechanical Ventilator 30 09/29/16 08:00 75 09/29/16 08:00 30 09/29/16 07:14 81 16 30 09/29/16 07:00 82 16 92/74 100 Mechanical Ventilator 30 09/29/16 06:00 76 16 90/73 100 Mechanical Ventilator 30 09/29/16 05:02 83 16 30 09/29/16 05:00 80 16 92/64 100 Mechanical Ventilator 30 09/29/16 04:00 30 09/29/16 04:00 86 09/29/16 04:00 98.0 84 16 103/70 100 Mechanical Ventilator 30 09/29/16 03:00 80 16 96/70 100 Mechanical Ventilator 30 09/29/16 02:57 86 16 30 09/29/16 02:00 91 16 97/47 100 Mechanical Ventilator 30 09/29/16 01:00 85 16 98/68 100 Mechanical Ventilator 30 09/29/16 00:47 88 16 30 09/29/16 00:00 98.2 81 16 102/75 100 Mechanical Ventilator 30 09/29/16 00:00 30 09/29/16 00:00 86 09/28/16 23:37 86 16 30 09/28/16 23:00 85 16 99/68 100 Mechanical Ventilator 30 09/28/16 22:00 86 19 90/69 100 Mechanical Ventilator 30 09/28/16 21:13 89 16 30 09/28/16 21:00 98.0 92 19 124/9 100 Mechanical Ventilator 30 09/28/16 20:00 30 09/28/16 20:00 94 19 114/84 100 Mechanical Ventilator 30 09/28/16 20:00 90 09/28/16 19:00 93 16 99/76 99 Mechanical Ventilator 30 09/28/16 18:36 91 16 30 09/28/16 18:00 98 21 112/76 100 Mechanical Ventilator 30 09/28/16 17:20 93 16 30 09/28/16 17:00 90 16 93/75 100 Mechanical Ventilator 30 09/28/16 16:00 92 09/28/16 16:00 97.1 92 16 108/72 100 Mechanical Ventilator 30 09/28/16 15:20 89 16 30 09/28/16 15:00 88 16 90/72 100 Mechanical Ventilator 30 09/28/16 14:00 90 16 89/65 100 Mechanical Ventilator 30 09/28/16 13:40 30 09/28/16 13:00 92 23 104/75 98 Mechanical Ventilator 30 09/28/16 13:00 87 16 30 09/28/16 12:00 84 09/28/16 12:00 98.0 84 21 118/83 99 Mechanical Ventilator 30 09/28/16 11:20 86 22 30 09/28/16 11:00 90 25 122/78 98 Mechanical Ventilator 30 09/28/16 10:00 84 22 117/75 100 Mechanical Ventilator 30 09/28/16 09:20 82 24 30 09/28/16 09:00 30 09/28/16 09:00 83 16 94/72 100 Mechanical Ventilator 30 Height (Feet): 6 Height (Inches): 2.00 Weight (Pounds): 127 General Appearance: other - intubated Respiratory/Chest: decreased breath sounds Cardiovascular: normal rate, regular rhythm Abdomen: normal bowel sounds, soft, non tender, non distended Laboratory Tests Test 09/29/16 03:40 09/29/16 08:15 White Blood Count 10.7 K/UL (4.8-10.8) Red Blood Count 3.40 M/UL (4.70-6.10) L Hemoglobin 9.7 G/DL (14.2-18.0) L Hematocrit 30.9 % (42.0-52.0) L Mean Corpuscular Volume 91 FL (80-99) Mean Corpuscular Hemoglobin 28.6 PG (27.0-31.0) Mean Corpuscular Hemoglobin Concent 31.4 G/DL (32.0-36.0) L Red Cell Distribution Width 15.1 % (11.6-14.8) H Platelet Count 312 K/UL (150-450) Mean Platelet Volume 6.9 FL (6.5-10.1) Neutrophils (%) (Auto) % (45.0-75.0) Lymphocytes (%) (Auto) % (20.0-45.0) Monocytes (%) (Auto) % (1.0-10.0) Eosinophils (%) (Auto) % (0.0-3.0) Basophils (%) (Auto) % (0.0-2.0) Neutrophils % (Manual) Pending Lymphocytes % (Manual) Pending Platelet Estimate Pending Platelet Morphology Pending Sodium Level 142 mEQ/L (135-145) Potassium Level 5.1 mEQ/L (3.4-4.9) H Chloride Level 100 mEQ/L (98-107) Carbon Dioxide Level 36 mEQ/L (20-30) H Anion Gap 6 (5-15) Blood Urea Nitrogen 20 mg/dL (7-23) Creatinine 0.6 mg/dL (0.7-1.2) L Estimat Glomerular Filtration Rate > 60 mL/min (>60) Glucose Level 172 mg/dL (74-106) H Calcium Level 9.0 mg/dL (8.6-10.2) Phosphorus Level 3.7 mg/dL (2.5-4.8) Magnesium Level 2.6 mg/dL (1.7-2.5) H Total Bilirubin < 0.2 mg/dL (0.0-1.2) Aspartate Amino Transf (AST/SGOT) 13 U/L (5-40) Alanine Aminotransferase (ALT/SGPT) 24 U/L (3-41) Alkaline Phosphatase 72 U/L (40-129) Total Protein 5.9 g/dL (6.6-8.7) L Albumin 2.9 g/dL (3.5-5.2) L Globulin 3.0 g/dL Albumin/Globulin Ratio 0.9 (1.0-2.7) L Arterial Blood pH 7.422 (7.350-7.450) Arterial Blood Partial Pressure CO2 59.6 mmHg (35.0-45.0) *H Arterial Blood Partial Pressure O2 69.6 mmHg (75.0-100.0) L Arterial Blood HCO3 38.0 mmol/L (22.0-26.0) H Arterial Blood Oxygen Saturation 92.5 % (92.0-98.0) Arterial Blood Base Excess 11.7 Joseluis Test Positive Current Medications Medications (Trade) Dose Ordered Sig/Shraddha Route PRN Reason Start Time Stop Time Status Last Admin Dose Admin Acetaminophen (Tylenol) 650 mg Q4H PRN ORAL fever>100.5 09/20/16 18:30 10/20/16 18:29 Albuterol/ Ipratropium (DuoNeb 0.5-3(2.5)mg/3ml) 3 ml Q4HR PRN HHN Shortness of Breath 09/27/16 22:00 10/02/16 21:59 09/27/16 21:28 Dextrose (D5W 1000ml) 1,000 ml @ 50 mls/hr Q20H IV 09/27/16 11:30 10/27/16 11:29 09/29/16 01:23 Dextrose (Dextrose 50%) STAT PRN IV Hypoglycemia 09/21/16 16:45 10/21/16 16:44 Heparin Sodium (Porcine) (Heparin 5000 units/ml) 5,000 units EVERY 12 HOURS SUBQ 09/20/16 21:00 10/20/16 20:59 09/28/16 20:41 Insulin Aspart (NovoLOG) start when feeding started Q6HR SUBQ 09/21/16 18:00 10/21/16 17:59 09/29/16 05:28 Lorazepam (Ativan 2mg/ml 1ml) 2 mg Q2H PRN IV For Anxiety 09/28/16 00:45 10/05/16 00:44 09/29/16 01:23 Methylprednisolone Sodium Succinate (Solu-MEDROL) 40 mg EVERY 12 HOURS IVP 09/24/16 21:00 10/24/16 20:59 09/28/16 20:39 Ondansetron HCl (Zofran) 4 mg Q6H PRN IVP Nausea & Vomiting 09/20/16 18:30 10/20/16 18:29 09/25/16 08:49 Pantoprazole 40 mg 40 mg DAILY IVP 09/25/16 09:00 10/25/16 08:59 09/28/16 09:49 Polyethylene Glycol (Miralax) 17 gm DAILYPRN PRN ORAL Constipation 09/20/16 18:30 10/20/16 18:29 NAOMI GEORGE Sep 29, 2016 08:56
[2016-09-29 09:50] LABS: ANISOCYTOSIS 1+; BAND NEUTROPHILS % (MANUAL) 0 % (0-8); BASOPHILS % (MANUAL) 0 % (0-2); EOSINOPHILS % (MANUAL) 0 % (0-3); HYPOCHROMASIA 1+; LYMPHOCYTES % (MANUAL) 5 % (20-45); NEUTROPHILS % (MANUAL) 91 % (45-75); PLATELET ESTIMATE ADEQUATE; PLATELET MORPHOLOGY NORMAL; TOTAL CELLS COUNTED 100
[2016-09-29] MEDS: Solu-MEDROL 40mg Inj IVP SCH ×2 (09:56→20:37)
[2016-09-29] MEDS: Pantoprazole Inj IVP SCH (09:57)
[2016-09-29] MEDS: Heparin 5000 units/ml inj SUBQ SCH ×2 (09:59→20:40)
--- NOTE | 2016-09-29 14:18 | Internal Med Progress Note ---
Subjective Date of Service: Sep 29, 2016 Physician Name Tadeo Tsang Attending Physician Steve Rader MD Current Medications Medications (Trade) Dose Ordered Sig/Shraddha Route PRN Reason Start Time Stop Time Status Last Admin Dose Admin Acetaminophen (Tylenol) 650 mg Q4H PRN ORAL fever>100.5 09/20/16 18:30 10/20/16 18:29 09/29/16 10:54 Albuterol/ Ipratropium (DuoNeb 0.5-3(2.5)mg/3ml) 3 ml Q4HR PRN HHN Shortness of Breath 09/27/16 22:00 10/02/16 21:59 09/27/16 21:28 Dextrose (D5W 1000ml) 1,000 ml @ 50 mls/hr Q20H IV 09/27/16 11:30 10/27/16 11:29 09/29/16 01:23 Dextrose (Dextrose 50%) STAT PRN IV Hypoglycemia 09/21/16 16:45 10/21/16 16:44 Heparin Sodium (Porcine) (Heparin 5000 units/ml) 5,000 units EVERY 12 HOURS SUBQ 09/20/16 21:00 10/20/16 20:59 09/29/16 09:59 Insulin Aspart (NovoLOG) start when feeding started Q6HR SUBQ 09/21/16 18:00 10/21/16 17:59 09/29/16 12:16 Lorazepam (Ativan 2mg/ml 1ml) 2 mg Q2H PRN IV For Anxiety 09/28/16 00:45 10/05/16 00:44 09/29/16 01:23 Methylprednisolone Sodium Succinate (Solu-MEDROL) 40 mg EVERY 12 HOURS IVP 09/24/16 21:00 10/24/16 20:59 09/29/16 09:56 Ondansetron HCl (Zofran) 4 mg Q6H PRN IVP Nausea & Vomiting 09/20/16 18:30 10/20/16 18:29 09/25/16 08:49 Pantoprazole 40 mg 40 mg DAILY IVP 09/25/16 09:00 10/25/16 08:59 09/29/16 09:57 Polyethylene Glycol (Miralax) 17 gm DAILYPRN PRN ORAL Constipation 09/20/16 18:30 10/20/16 18:29 Allergies: Coded Allergies: No Known Allergies (Unverified , 06/17/16) ROS Limited/Unobtainable: Yes Subjective 66 YO M admitted with respiratory failure. ICU. Intubated and sedated. Cover for Int Wilder-Dr Rader. Objective Last Vital Signs Date Time Temp Pulse Resp B/P Pulse Ox O2 Delivery O2 Flow Rate FiO2 09/29/16 14:00 80 16 98/66 100 Mechanical Ventilator 40 09/29/16 12:30 97.3 09/22/16 19:13 15.0 Laboratory Tests Test 09/29/16 03:40 09/29/16 08:15 White Blood Count 10.7 K/UL (4.8-10.8) Red Blood Count 3.40 M/UL (4.70-6.10) L Hemoglobin 9.7 G/DL (14.2-18.0) L Hematocrit 30.9 % (42.0-52.0) L Mean Corpuscular Volume 91 FL (80-99) Mean Corpuscular Hemoglobin 28.6 PG (27.0-31.0) Mean Corpuscular Hemoglobin Concent 31.4 G/DL (32.0-36.0) L Red Cell Distribution Width 15.1 % (11.6-14.8) H Platelet Count 312 K/UL (150-450) Mean Platelet Volume 6.9 FL (6.5-10.1) Neutrophils (%) (Auto) % (45.0-75.0) Lymphocytes (%) (Auto) % (20.0-45.0) Monocytes (%) (Auto) % (1.0-10.0) Eosinophils (%) (Auto) % (0.0-3.0) Basophils (%) (Auto) % (0.0-2.0) Differential Total Cells Counted 100 Neutrophils % (Manual) 91 % (45-75) H Lymphocytes % (Manual) 5 % (20-45) L Monocytes % (Manual) 4 % (1-10) Eosinophils % (Manual) 0 % (0-3) Basophils % (Manual) 0 % (0-2) Band Neutrophils 0 % (0-8) Platelet Estimate Adequate Platelet Morphology Normal Hypochromasia 1+ Anisocytosis 1+ Sodium Level 142 mEQ/L (135-145) Potassium Level 5.1 mEQ/L (3.4-4.9) H Chloride Level 100 mEQ/L (98-107) Carbon Dioxide Level 36 mEQ/L (20-30) H Anion Gap 6 (5-15) Blood Urea Nitrogen 20 mg/dL (7-23) Creatinine 0.6 mg/dL (0.7-1.2) L Estimat Glomerular Filtration Rate > 60 mL/min (>60) Glucose Level 172 mg/dL (74-106) H Calcium Level 9.0 mg/dL (8.6-10.2) Phosphorus Level 3.7 mg/dL (2.5-4.8) Magnesium Level 2.6 mg/dL (1.7-2.5) H Total Bilirubin < 0.2 mg/dL (0.0-1.2) Aspartate Amino Transf (AST/SGOT) 13 U/L (5-40) Alanine Aminotransferase (ALT/SGPT) 24 U/L (3-41) Alkaline Phosphatase 72 U/L (40-129) Total Protein 5.9 g/dL (6.6-8.7) L Albumin 2.9 g/dL (3.5-5.2) L Globulin 3.0 g/dL Albumin/Globulin Ratio 0.9 (1.0-2.7) L Arterial Blood pH 7.422 (7.350-7.450) Arterial Blood Partial Pressure CO2 59.6 mmHg (35.0-45.0) *H Arterial Blood Partial Pressure O2 69.6 mmHg (75.0-100.0) L Arterial Blood HCO3 38.0 mmol/L (22.0-26.0) H Arterial Blood Oxygen Saturation 92.5 % (92.0-98.0) Arterial Blood Base Excess 11.7 Joseluis Test Positive Microbiology Date/Time Source Procedure Growth Status 09/28/16 04:00 Sputum Gram Stain - Final Resulted 09/28/16 04:00 Sputum Sputum Culture Pending Resulted Intake and Output 09/28/16 09/29/16 19:00 07:00 Intake Total 1440 ml 1390 ml Output Total 620 ml 870 ml Balance 820 ml 520 ml Free Water 120 ml 120 ml IV Total 600 ml 550 ml Tube Feeding 720 ml 720 ml Output Urine Total 620 ml 870 ml # Bowel Movements 2 Objective General Appearance: moderate distress, thin EENT: PERRL/EOMI, normal ENT inspection Neck: non-tender, normal alignment, supple Cardiovascular: normal peripheral pulses, normal rate, regular rhythm, no gallop/murmur, no JVD Respiratory/Chest: Mech Vent; respiratory distress, crackles/rales, rhonchi - bilaterally, expiratory wheezing Abdomen: non tender, soft, no organomegaly, no mass, decreased bowel sounds Extremities: normal range of motion Skin: normal pigmentation, warm/dry Assessment/Plan Problem List: (1) Lung nodule (2) DVT (deep venous thrombosis) (3) Acute respiratory failure Assessment & Plan: Cont vent per pulmonary (4) COPD exacerbation Assessment & Plan: Continue IV solumedrol and duoneb. Continue vent per pulmonary. (5) Pneumonia Assessment & Plan: D/C antibiotics per TADEO JAMISON Sep 29, 2016 14:18
--- NOTE | 2016-09-29 23:10 | Pulmonolgy Critical Care Note ---
Critical Care - Asmt/Plan Problems: (1) Respiratory failure (2) COPD exacerbation (3) Pneumonia (4) Altered mental status Respiratory: monitor respiratory rate Cardiac: continue to monitor HR/BP, d/c electronic device monitor Renal: F/U I&O, keep IV fluid Infectious Disease: check cultures, continue antibiotics, add antibiotics Gastrointestinal: continue feedings/current rate Endocrine: monitor blood sugar, continue sliding scale insulin Hematologic: monitor H/H, transfuse if hgb<8.5 Neurologic: PRN Ativan, PRN Morphine, keep patient comfortable Affect: PRN ativan Prophylaxis: Heparin Time Spent (Minutes): 40 Notes Reviewed: software engineering project manager, renal 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, consultants, business case analystmanager customer service - Objective Last 24 Hour Vital Signs Date Time Temp Pulse Resp B/P Pulse Ox O2 Delivery O2 Flow Rate FiO2 09/29/16 22:00 80 16 92/67 100 Mechanical Ventilator 40 09/29/16 21:00 86 16 100/68 100 Mechanical Ventilator 40 09/29/16 20:00 87 09/29/16 20:00 40 09/29/16 20:00 97.0 87 16 107/75 100 Mechanical Ventilator 40 09/29/16 19:30 87 16 40 09/29/16 19:00 77 16 91/66 100 Mechanical Ventilator 40 09/29/16 18:00 77 16 104/71 100 Mechanical Ventilator 40 09/29/16 17:19 81 16 40 09/29/16 17:00 85 17 95/71 100 Mechanical Ventilator 40 09/29/16 16:00 40 09/29/16 16:00 97.4 90 25 104/74 100 Mechanical Ventilator 40 09/29/16 16:00 90 09/29/16 15:24 76 16 40 09/29/16 15:00 87 17 95/65 100 Mechanical Ventilator 40 09/29/16 14:00 80 16 98/66 100 Mechanical Ventilator 40 09/29/16 13:11 75 16 40 09/29/16 13:00 79 16 89/64 100 Mechanical Ventilator 40 09/29/16 12:30 97.3 76 16 93/67 100 Mechanical Ventilator 40 09/29/16 12:15 97.1 09/29/16 12:00 40 09/29/16 12:00 97.3 76 16 93/67 100 Mechanical Ventilator 40 09/29/16 12:00 76 09/29/16 11:21 81 16 40 09/29/16 11:00 84 16 94/67 100 Mechanical Ventilator 40 09/29/16 10:00 40 09/29/16 10:00 78 24 89/68 100 Mechanical Ventilator 40 09/29/16 09:08 78 16 40 09/29/16 09:00 78 19 90/66 100 Mechanical Ventilator 40 09/29/16 08:00 97.1 78 21 129/54 98 Mechanical Ventilator 30 09/29/16 08:00 75 09/29/16 08:00 30 09/29/16 07:14 81 16 30 09/29/16 07:00 82 16 92/74 100 Mechanical Ventilator 30 09/29/16 06:00 76 16 90/73 100 Mechanical Ventilator 30 09/29/16 05:02 83 16 30 09/29/16 05:00 80 16 92/64 100 Mechanical Ventilator 30 09/29/16 04:00 30 09/29/16 04:00 86 09/29/16 04:00 98.0 84 16 103/70 100 Mechanical Ventilator 30 09/29/16 03:00 80 16 96/70 100 Mechanical Ventilator 30 09/29/16 02:57 86 16 30 09/29/16 02:00 91 16 97/47 100 Mechanical Ventilator 30 09/29/16 01:00 85 16 98/68 100 Mechanical Ventilator 30 09/29/16 00:47 88 16 30 09/29/16 00:00 98.2 81 16 102/75 100 Mechanical Ventilator 30 09/29/16 00:00 30 09/29/16 00:00 86 09/28/16 23:37 86 16 30 Status: awake Condition: critical HEENT: atraumatic, normocephalic Neck: full ROM Lungs: clear Heart: HR/BP stable Abdomen: soft, non-tender Extremities: no C/C/E, edema Decubiti: location Micro: Microbiology Date/Time Source Procedure Growth Status 09/28/16 04:00 Sputum Gram Stain - Final Resulted 09/28/16 04:00 Sputum Sputum Culture Pending Resulted Accucheck: 162 Critical Care - Subjective ROS Limited/Unobtainable: Yes ICU Day: 9 Intubation Day: 9 Condition: critical EKG Rhythm: Sinus Rhythm FI02: 40 Vent Support Breath Rate: 16 Vent Support Mode: AC Vent Tidal Volume: 600 Sputum Amount: Small PEEP: 5.0 PIP: 29 Secretions: small Tube Feeding Amount: 60 I&O: Intake and Output 09/28/16 09/29/16 19:00 07:00 Intake Total 1440 ml 1390 ml Output Total 620 ml 870 ml Balance 820 ml 520 ml Free Water 120 ml 120 ml IV Total 600 ml 550 ml Tube Feeding 720 ml 720 ml Output Urine Total 620 ml 870 ml # Bowel Movements 2 CXR: hyperinflated ET-Tube: 8.0 ET Position: 24 REN WRIGHT Sep 29, 2016 23:10
[2016-09-30] VITALS (24 sets, daily range): BP systolic 87–117; BP diastolic 43–82
[2016-09-30 04:55] LABS: MEAN CORPUSCULAR HEMOGLOBIN 28.7 PG (27.0-31.0); MEAN CORPUSCULAR HGB CONC 31.4 G/DL (32.0-36.0); MEAN CORPUSCULAR VOLUME 92 FL (80-99); MEAN PLATELET VOLUME 6.9 FL (6.5-10.1); PLATELET COUNT 322 K/UL (150-450); RED BLOOD COUNT 3.49 M/UL (4.70-6.10); RED CELL DISTRIBUTION WIDTH 14.9 % (11.6-14.8); WHITE BLOOD COUNT 14.8 K/UL (4.8-10.8)
[2016-09-30] MEDS: LORazepam Inj 2mg/ml 1ml IV PRN (05:21)
[2016-09-30 05:38] LABS: ALANINE AMINOTRANSFERASE 26 U/L (3-41); ALBUMIN/GLOBULIN RATIO 0.9 (1.0-2.7); ANION GAP 7 (5-15); ASPARTATE AMINO TRANSFERASE 14 U/L (5-40); CALCIUM 8.9 mg/dL (8.6-10.2); CARBON DIOXIDE 35 mEQ/L (20-30); CHLORIDE 96 mEQ/L (98-107); CREATININE 0.6 mg/dL (0.7-1.2); GLOMERULAR FILTRATION RATE > 60 mL/min (>60); HEMOLYSIS 0; MAGNESIUM 2.2 mg/dL (1.7-2.5); PHOSPHORUS 3.9 mg/dL (2.5-4.8); SODIUM 138 mEQ/L (135-145); TOTAL PROTEIN 5.9 g/dL (6.6-8.7)
[2016-09-30] MEDS: NovoLOG Insulin Flexpen SUBQ SCH ×4 (05:46→23:39)
--- NOTE | 2016-09-30 08:05 | Infectious Diseases Prog Note ---
Assessment/Plan Assessment/Plan ASSESSMENT: 66 y/o male with: // COPD exacerbation - delayed SCx 4+ PSA - CXR 09/27: Lungs are hyperinflated. No new infiltrates - negative: influenza // Leukocytosis - recurrent, afebrile ( on steroids ) // Acute VDRF - intubated 09/20, may need trach // Severe pulmonary HTN / grade I diastolic dysfunction / mod TR // Pulmonary nodules // Chronic RLE DVT // Tobacco abuse // [place] resident // Negative MRSA, VRE screens // NKDA // Full Code PLAN: - start doretha nebs d# 1 for secretions, PSA. Will re-culture, re-start IV ABX if febrile or worsening leukocytosis ( 09/24 SP amikacin, invanz d# 5 / 5 ) ( 09/21 SP IV vancomycin d# 2 ) - taper steroids per pulm - monitor CBC, temperatures - monitor BMP - monitor CXR - vent support, wean as tolerated. May need trach Subjective Allergies: Coded Allergies: No Known Allergies (Unverified , 06/17/16) Subjective remains afebrile on vent SCx PSA Objective Vital Signs Last 24 Hour Vital Signs Date Time Temp Pulse Resp B/P Pulse Ox O2 Delivery O2 Flow Rate FiO2 09/30/16 06:00 89 16 114/77 100 Mechanical Ventilator 40 09/30/16 05:06 86 16 40 09/30/16 05:00 89 16 114/77 100 Mechanical Ventilator 40 09/30/16 04:00 89 09/30/16 04:00 40 09/30/16 04:00 97.6 89 16 114/77 100 Mechanical Ventilator 40 09/30/16 03:00 89 16 114/77 100 Mechanical Ventilator 40 09/30/16 02:55 92 16 40 09/30/16 02:00 89 16 114/77 100 Mechanical Ventilator 40 09/30/16 01:30 89 16 40 09/30/16 01:00 75 16 111/74 100 Mechanical Ventilator 40 09/30/16 00:00 40 09/30/16 00:00 85 09/30/16 00:00 97.5 85 16 100/74 100 Mechanical Ventilator 40 09/29/16 23:30 88 16 40 09/29/16 23:00 75 16 94/71 100 Mechanical Ventilator 40 09/29/16 22:00 80 16 92/67 100 Mechanical Ventilator 40 09/29/16 21:30 84 16 40 09/29/16 21:00 86 16 100/68 100 Mechanical Ventilator 40 09/29/16 20:00 87 09/29/16 20:00 40 09/29/16 20:00 97.0 87 16 107/75 100 Mechanical Ventilator 40 09/29/16 19:30 87 16 40 09/29/16 19:00 77 16 91/66 100 Mechanical Ventilator 40 09/29/16 18:00 77 16 104/71 100 Mechanical Ventilator 40 09/29/16 17:19 81 16 40 09/29/16 17:00 85 17 95/71 100 Mechanical Ventilator 40 09/29/16 16:00 40 09/29/16 16:00 97.4 90 25 104/74 100 Mechanical Ventilator 40 09/29/16 16:00 90 09/29/16 15:24 76 16 40 09/29/16 15:00 87 17 95/65 100 Mechanical Ventilator 40 09/29/16 14:00 80 16 98/66 100 Mechanical Ventilator 40 09/29/16 13:11 75 16 40 09/29/16 13:00 79 16 89/64 100 Mechanical Ventilator 40 09/29/16 12:30 97.3 76 16 93/67 100 Mechanical Ventilator 40 09/29/16 12:15 97.1 09/29/16 12:00 40 09/29/16 12:00 97.3 76 16 93/67 100 Mechanical Ventilator 40 09/29/16 12:00 76 09/29/16 11:21 81 16 40 09/29/16 11:00 84 16 94/67 100 Mechanical Ventilator 40 09/29/16 10:00 40 09/29/16 10:00 78 24 89/68 100 Mechanical Ventilator 40 09/29/16 09:08 78 16 40 09/29/16 09:00 78 19 90/66 100 Mechanical Ventilator 40 Height (Feet): 6 Height (Inches): 2.00 Weight (Pounds): 127 General Appearance: other - intubated Respiratory/Chest: decreased breath sounds Cardiovascular: normal rate, regular rhythm Abdomen: normal bowel sounds, soft, non tender, non distended Microbiology Date/Time Source Procedure Growth Status 09/28/16 04:00 Sputum Gram Stain - Final Complete 09/28/16 04:00 Sputum Culture - Final Pseudomonas Aeruginosa Complete Laboratory Tests Test 09/29/16 08:15 09/30/16 03:55 Arterial Blood pH 7.422 (7.350-7.450) Arterial Blood Partial Pressure CO2 59.6 mmHg (35.0-45.0) *H Arterial Blood Partial Pressure O2 69.6 mmHg (75.0-100.0) L Arterial Blood HCO3 38.0 mmol/L (22.0-26.0) H Arterial Blood Oxygen Saturation 92.5 % (92.0-98.0) Arterial Blood Base Excess 11.7 Joseluis Test Positive White Blood Count 14.8 K/UL (4.8-10.8) H Red Blood Count 3.49 M/UL (4.70-6.10) L Hemoglobin 10.0 G/DL (14.2-18.0) L Hematocrit 32.0 % (42.0-52.0) L Mean Corpuscular Volume 92 FL (80-99) Mean Corpuscular Hemoglobin 28.7 PG (27.0-31.0) Mean Corpuscular Hemoglobin Concent 31.4 G/DL (32.0-36.0) L Red Cell Distribution Width 14.9 % (11.6-14.8) H Platelet Count 322 K/UL (150-450) Mean Platelet Volume 6.9 FL (6.5-10.1) Neutrophils (%) (Auto) % (45.0-75.0) Lymphocytes (%) (Auto) % (20.0-45.0) Monocytes (%) (Auto) % (1.0-10.0) Eosinophils (%) (Auto) % (0.0-3.0) Basophils (%) (Auto) % (0.0-2.0) Neutrophils % (Manual) Pending Lymphocytes % (Manual) Pending Platelet Estimate Pending Platelet Morphology Pending Sodium Level 138 mEQ/L (135-145) Potassium Level 5.0 mEQ/L (3.4-4.9) H Chloride Level 96 mEQ/L (98-107) L Carbon Dioxide Level 35 mEQ/L (20-30) H Anion Gap 7 (5-15) Blood Urea Nitrogen 21 mg/dL (7-23) Creatinine 0.6 mg/dL (0.7-1.2) L Estimat Glomerular Filtration Rate > 60 mL/min (>60) Glucose Level 143 mg/dL (74-106) H Calcium Level 8.9 mg/dL (8.6-10.2) Phosphorus Level 3.9 mg/dL (2.5-4.8) Magnesium Level 2.2 mg/dL (1.7-2.5) Total Bilirubin < 0.2 mg/dL (0.0-1.2) Aspartate Amino Transf (AST/SGOT) 14 U/L (5-40) Alanine Aminotransferase (ALT/SGPT) 26 U/L (3-41) Alkaline Phosphatase 68 U/L (40-129) Total Protein 5.9 g/dL (6.6-8.7) L Albumin 2.8 g/dL (3.5-5.2) L Globulin 3.1 g/dL Albumin/Globulin Ratio 0.9 (1.0-2.7) L Current Medications Medications (Trade) Dose Ordered Sig/Shraddha Route PRN Reason Start Time Stop Time Status Last Admin Dose Admin Acetaminophen (Tylenol) 650 mg Q4H PRN ORAL fever>100.5 09/20/16 18:30 10/20/16 18:29 09/29/16 10:54 Albuterol/ Ipratropium (DuoNeb 0.5-3(2.5)mg/3ml) 3 ml Q4HR PRN HHN Shortness of Breath 09/27/16 22:00 10/02/16 21:59 09/27/16 21:28 Dextrose (D5W 1000ml) 1,000 ml @ 50 mls/hr Q20H IV 09/27/16 11:30 10/27/16 11:29 09/29/16 23:47 Dextrose (Dextrose 50%) STAT PRN IV Hypoglycemia 09/21/16 16:45 10/21/16 16:44 Heparin Sodium (Porcine) (Heparin 5000 units/ml) 5,000 units EVERY 12 HOURS SUBQ 09/20/16 21:00 10/20/16 20:59 09/29/16 20:40 Insulin Aspart (NovoLOG) start when feeding started Q6HR SUBQ 09/21/16 18:00 10/21/16 17:59 09/30/16 05:46 Lorazepam (Ativan 2mg/ml 1ml) 2 mg Q2H PRN IV For Anxiety 09/28/16 00:45 4/1/17 00:44 09/30/16 05:21 Methylprednisolone Sodium Succinate (Solu-MEDROL) 40 mg EVERY 12 HOURS IVP 09/24/16 21:00 10/24/16 20:59 09/29/16 20:37 Ondansetron HCl (Zofran) 4 mg Q6H PRN IVP Nausea & Vomiting 09/20/16 18:30 10/20/16 18:29 09/25/16 08:49 Pantoprazole 40 mg 40 mg DAILY IVP 09/25/16 09:00 10/25/16 08:59 09/29/16 09:57 Polyethylene Glycol (Miralax) 17 gm DAILYPRN PRN ORAL Constipation 09/20/16 18:30 10/20/16 18:29 NAOMI GEORGE 27, 2017 08:05
[2016-09-30 08:52] LABS: ANISOCYTOSIS 1+; BAND NEUTROPHILS % (MANUAL) 0 % (0-8); BASOPHILS % (MANUAL) 0 % (0-2); EOSINOPHILS % (MANUAL) 0 % (0-3); HYPOCHROMASIA 1+; LYMPHOCYTES % (MANUAL) 7 % (20-45); NEUTROPHILS % (MANUAL) 87 % (45-75); PLATELET ESTIMATE ADEQUATE; PLATELET MORPHOLOGY NORMAL; TOTAL CELLS COUNTED 100
[2016-09-30] MEDS: Solu-MEDROL 40mg Inj IVP SCH ×2 (09:36→20:34)
[2016-09-30] MEDS: Pantoprazole Inj IVP SCH (09:36)
[2016-09-30] MEDS: Heparin 5000 units/ml inj SUBQ SCH ×2 (09:37→20:34)
[2016-09-30 10:15] LABS: ABG PCO2 68.5 mmHg (35.0-45.0)
[2016-09-30 10:16] LABS: ABG ALLEN TEST POSITIVE; ABG BASE EXCESS 12.1
--- NOTE | 2016-09-30 11:51 | Pulmonolgy Critical Care Note ---
Critical Care - Asmt/Plan Problems: (1) Respiratory failure (2) COPD exacerbation (3) Pneumonia (4) Altered mental status Respiratory: monitor respiratory rate, adjust FIO2, CXR, other - not weaning, SOB on ventilater, difficult to get. will do PS for 30 minutes to see if he can be weaned Cardiac: continue pressors, continue to monitor HR/BP Renal: F/U I&O, keep IV fluid, check electrolytes Infectious Disease: check cultures, continue antibiotics Gastrointestinal: continue feedings/current rate Endocrine: monitor blood sugar, check TSH, continue sliding scale insulin Hematologic: monitor H/H, transfuse if hgb<8.5 Neurologic: PRN Morphine, keep patient comfortable Prophylaxis: Protonix, Heparin Notes Reviewed: facilities assistant, cardio, renal 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, consultants, case management assistantflow manager - Objective Last 24 Hour Vital Signs Date Time Temp Pulse Resp B/P Pulse Ox O2 Delivery O2 Flow Rate FiO2 09/30/16 10:00 100 17 106/79 100 Mechanical Ventilator 40 09/30/16 09:14 94 16 40 09/30/16 09:00 89 16 99/65 100 Mechanical Ventilator 40 09/30/16 08:00 97.8 92 16 106/72 100 Mechanical Ventilator 40 09/30/16 07:51 86 16 40 09/30/16 07:00 95 16 101/59 100 Mechanical Ventilator 40 09/30/16 06:00 89 16 114/77 100 Mechanical Ventilator 40 09/30/16 05:06 86 16 40 09/30/16 05:00 89 16 114/77 100 Mechanical Ventilator 40 09/30/16 04:00 89 09/30/16 04:00 40 09/30/16 04:00 97.6 89 16 114/77 100 Mechanical Ventilator 40 09/30/16 03:00 89 16 114/77 100 Mechanical Ventilator 40 09/30/16 02:55 92 16 40 09/30/16 02:00 89 16 114/77 100 Mechanical Ventilator 40 09/30/16 01:30 89 16 40 09/30/16 01:00 75 16 111/74 100 Mechanical Ventilator 40 09/30/16 00:00 40 09/30/16 00:00 85 09/30/16 00:00 97.5 85 16 100/74 100 Mechanical Ventilator 40 09/29/16 23:30 88 16 40 09/29/16 23:00 75 16 94/71 100 Mechanical Ventilator 40 09/29/16 22:00 80 16 92/67 100 Mechanical Ventilator 40 09/29/16 21:30 84 16 40 09/29/16 21:00 86 16 100/68 100 Mechanical Ventilator 40 09/29/16 20:00 87 09/29/16 20:00 40 09/29/16 20:00 97.0 87 16 107/75 100 Mechanical Ventilator 40 09/29/16 19:30 87 16 40 09/29/16 19:00 77 16 91/66 100 Mechanical Ventilator 40 09/29/16 18:00 77 16 104/71 100 Mechanical Ventilator 40 09/29/16 17:19 81 16 40 09/29/16 17:00 85 17 95/71 100 Mechanical Ventilator 40 09/29/16 16:00 40 09/29/16 16:00 97.4 90 25 104/74 100 Mechanical Ventilator 40 09/29/16 16:00 90 09/29/16 15:24 76 16 40 09/29/16 15:00 87 17 95/65 100 Mechanical Ventilator 40 09/29/16 14:00 80 16 98/66 100 Mechanical Ventilator 40 09/29/16 13:11 75 16 40 09/29/16 13:00 79 16 89/64 100 Mechanical Ventilator 40 09/29/16 12:30 97.3 76 16 93/67 100 Mechanical Ventilator 40 09/29/16 12:15 97.1 09/29/16 12:00 40 09/29/16 12:00 97.3 76 16 93/67 100 Mechanical Ventilator 40 09/29/16 12:00 76 Status: awake Condition: critical HEENT: atraumatic, normocephalic Neck: full ROM Lungs: clear Heart: HR/BP stable, HR/BP unstable Abdomen: soft, non-tender, feeding tube Extremities: no C/C/E, edema Decubiti: location, stage Micro: Microbiology Date/Time Source Procedure Growth Status 09/28/16 04:00 Sputum Gram Stain - Final Complete 09/28/16 04:00 Sputum Culture - Final Pseudomonas Aeruginosa Complete Accucheck: 138 Critical Care - Subjective ROS Limited/Unobtainable: Yes ICU Day: 10 Intubation Day: 10 Condition: critical EKG Rhythm: Sinus Rhythm FI02: 40 Vent Support Breath Rate: 14 Vent Support Mode: IMV/SIMV Vent Tidal Volume: 600 Sputum Amount: Small PEEP: 5.0 PIP: 23 Tube Feeding Amount: 60 I&O: Intake and Output 09/29/16 09/30/16 19:00 07:00 Intake Total 1240 ml 1070 ml Output Total 475 ml 710 ml Balance 765 ml 360 ml Free Water 120 ml IV Total 400 ml 350 ml Tube Feeding 720 ml 720 ml Output Urine Total 475 ml 710 ml CXR: hyperinflated ET-Tube: 8.0 ET Position: 24 Labs: Laboratory Tests Test 09/30/16 03:55 09/30/16 09:52 White Blood Count 14.8 K/UL (4.8-10.8) H Red Blood Count 3.49 M/UL (4.70-6.10) L Hemoglobin 10.0 G/DL (14.2-18.0) L Hematocrit 32.0 % (42.0-52.0) L Mean Corpuscular Volume 92 FL (80-99) Mean Corpuscular Hemoglobin 28.7 PG (27.0-31.0) Mean Corpuscular Hemoglobin Concent 31.4 G/DL (32.0-36.0) L Red Cell Distribution Width 14.9 % (11.6-14.8) H Platelet Count 322 K/UL (150-450) Mean Platelet Volume 6.9 FL (6.5-10.1) Neutrophils (%) (Auto) % (45.0-75.0) Lymphocytes (%) (Auto) % (20.0-45.0) Monocytes (%) (Auto) % (1.0-10.0) Eosinophils (%) (Auto) % (0.0-3.0) Basophils (%) (Auto) % (0.0-2.0) Differential Total Cells Counted 100 Neutrophils % (Manual) 87 % (45-75) H Lymphocytes % (Manual) 7 % (20-45) L Monocytes % (Manual) 6 % (1-10) Eosinophils % (Manual) 0 % (0-3) Basophils % (Manual) 0 % (0-2) Band Neutrophils 0 % (0-8) Platelet Estimate Adequate Platelet Morphology Normal Hypochromasia 1+ Anisocytosis 1+ Sodium Level 138 mEQ/L (135-145) Potassium Level 5.0 mEQ/L (3.4-4.9) H Chloride Level 96 mEQ/L (98-107) L Carbon Dioxide Level 35 mEQ/L (20-30) H Anion Gap 7 (5-15) Blood Urea Nitrogen 21 mg/dL (7-23) Creatinine 0.6 mg/dL (0.7-1.2) L Estimat Glomerular Filtration Rate > 60 mL/min (>60) Glucose Level 143 mg/dL (74-106) H Calcium Level 8.9 mg/dL (8.6-10.2) Phosphorus Level 3.9 mg/dL (2.5-4.8) Magnesium Level 2.2 mg/dL (1.7-2.5) Total Bilirubin < 0.2 mg/dL (0.0-1.2) Aspartate Amino Transf (AST/SGOT) 14 U/L (5-40) Alanine Aminotransferase (ALT/SGPT) 26 U/L (3-41) Alkaline Phosphatase 68 U/L (40-129) Total Protein 5.9 g/dL (6.6-8.7) L Albumin 2.8 g/dL (3.5-5.2) L Globulin 3.1 g/dL Albumin/Globulin Ratio 0.9 (1.0-2.7) L Arterial Blood pH 7.378 (7.350-7.450) Arterial Blood Partial Pressure CO2 68.5 mmHg (35.0-45.0) *H Arterial Blood Partial Pressure O2 147.0 mmHg (75.0-100.0) H Arterial Blood HCO3 39.4 mmol/L (22.0-26.0) H Arterial Blood Oxygen Saturation 98.5 % (92.0-98.0) H Arterial Blood Base Excess 12.1 Joseluis Test Positive REN WRIGHT Sep 30, 2016 11:51
--- NOTE | 2016-09-30 12:16 | Diagnostic Imaging Report ---
Indication: DYSPNEA Technique: One view of the chest Comparison: 09/29/2016 Findings: Stable positions of endotracheal and nasogastric tubes. Stable pulmonary hyperinflation. No infiltrates. Findings are unchanged Impression: Unchanged, over one day, findings as above.
[2016-09-30] MEDS: Tobramycin for inhalation INH SCH ×2 (12:45→22:00)
--- NOTE | 2016-09-30 12:51 | Internal Med Progress Note ---
Subjective Date of Service: Sep 30, 2016 Physician Name Tadeo Tsang Attending Physician Steve Rader MD Current Medications Medications (Trade) Dose Ordered Sig/Shraddha Route PRN Reason Start Time Stop Time Status Last Admin Dose Admin Acetaminophen (Tylenol) 650 mg Q4H PRN ORAL fever>100.5 09/20/16 18:30 10/20/16 18:29 09/29/16 10:54 Albuterol/ Ipratropium (DuoNeb 0.5-3(2.5)mg/3ml) 3 ml Q4HR PRN HHN Shortness of Breath 09/27/16 22:00 10/02/16 21:59 09/27/16 21:28 Dextrose (D5W 1000ml) 1,000 ml @ 50 mls/hr Q20H IV 09/27/16 11:30 10/27/16 11:29 09/29/16 23:47 Dextrose (Dextrose 50%) STAT PRN IV Hypoglycemia 09/21/16 16:45 10/21/16 16:44 Heparin Sodium (Porcine) (Heparin 5000 units/ml) 5,000 units EVERY 12 HOURS SUBQ 09/20/16 21:00 10/20/16 20:59 09/30/16 09:37 Insulin Aspart (NovoLOG) start when feeding started Q6HR SUBQ 09/21/16 18:00 10/21/16 17:59 09/30/16 05:46 Lorazepam (Ativan 2mg/ml 1ml) 2 mg Q2H PRN IV For Anxiety 09/28/16 00:45 10/05/16 00:44 09/30/16 05:21 Methylprednisolone Sodium Succinate (Solu-MEDROL) 40 mg EVERY 12 HOURS IVP 09/24/16 21:00 10/24/16 20:59 09/30/16 09:36 Ondansetron HCl (Zofran) 4 mg Q6H PRN IVP Nausea & Vomiting 09/20/16 18:30 10/20/16 18:29 09/25/16 08:49 Pantoprazole 40 mg 40 mg DAILY IVP 09/25/16 09:00 10/25/16 08:59 09/30/16 09:36 Polyethylene Glycol (Miralax) 17 gm DAILYPRN PRN ORAL Constipation 09/20/16 18:30 10/20/16 18:29 Tobramycin Sulfate (Nebcin) 300 mg Q12HR@10,22 INH 09/30/16 10:00 10/07/16 09:59 09/30/16 12:45 Allergies: Coded Allergies: No Known Allergies (Unverified , 06/17/16) ROS Limited/Unobtainable: Yes Subjective 66 YO M admitted with respiratory failure. ICU. Intubated and sedated. Cover for Int Wilder-Dr Rader. Objective Last Vital Signs Date Time Temp Pulse Resp B/P Pulse Ox O2 Delivery O2 Flow Rate FiO2 09/30/16 12:00 40 09/30/16 12:00 98.1 84 18 87/43 100 Mechanical Ventilator 09/22/16 19:13 15.0 Laboratory Tests Test 09/30/16 03:55 09/30/16 09:52 White Blood Count 14.8 K/UL (4.8-10.8) H Red Blood Count 3.49 M/UL (4.70-6.10) L Hemoglobin 10.0 G/DL (14.2-18.0) L Hematocrit 32.0 % (42.0-52.0) L Mean Corpuscular Volume 92 FL (80-99) Mean Corpuscular Hemoglobin 28.7 PG (27.0-31.0) Mean Corpuscular Hemoglobin Concent 31.4 G/DL (32.0-36.0) L Red Cell Distribution Width 14.9 % (11.6-14.8) H Platelet Count 322 K/UL (150-450) Mean Platelet Volume 6.9 FL (6.5-10.1) Neutrophils (%) (Auto) % (45.0-75.0) Lymphocytes (%) (Auto) % (20.0-45.0) Monocytes (%) (Auto) % (1.0-10.0) Eosinophils (%) (Auto) % (0.0-3.0) Basophils (%) (Auto) % (0.0-2.0) Differential Total Cells Counted 100 Neutrophils % (Manual) 87 % (45-75) H Lymphocytes % (Manual) 7 % (20-45) L Monocytes % (Manual) 6 % (1-10) Eosinophils % (Manual) 0 % (0-3) Basophils % (Manual) 0 % (0-2) Band Neutrophils 0 % (0-8) Platelet Estimate Adequate Platelet Morphology Normal Hypochromasia 1+ Anisocytosis 1+ Sodium Level 138 mEQ/L (135-145) Potassium Level 5.0 mEQ/L (3.4-4.9) H Chloride Level 96 mEQ/L (98-107) L Carbon Dioxide Level 35 mEQ/L (20-30) H Anion Gap 7 (5-15) Blood Urea Nitrogen 21 mg/dL (7-23) Creatinine 0.6 mg/dL (0.7-1.2) L Estimat Glomerular Filtration Rate > 60 mL/min (>60) Glucose Level 143 mg/dL (74-106) H Calcium Level 8.9 mg/dL (8.6-10.2) Phosphorus Level 3.9 mg/dL (2.5-4.8) Magnesium Level 2.2 mg/dL (1.7-2.5) Total Bilirubin < 0.2 mg/dL (0.0-1.2) Aspartate Amino Transf (AST/SGOT) 14 U/L (5-40) Alanine Aminotransferase (ALT/SGPT) 26 U/L (3-41) Alkaline Phosphatase 68 U/L (40-129) Total Protein 5.9 g/dL (6.6-8.7) L Albumin 2.8 g/dL (3.5-5.2) L Globulin 3.1 g/dL Albumin/Globulin Ratio 0.9 (1.0-2.7) L Arterial Blood pH 7.378 (7.350-7.450) Arterial Blood Partial Pressure CO2 68.5 mmHg (35.0-45.0) *H Arterial Blood Partial Pressure O2 147.0 mmHg (75.0-100.0) H Arterial Blood HCO3 39.4 mmol/L (22.0-26.0) H Arterial Blood Oxygen Saturation 98.5 % (92.0-98.0) H Arterial Blood Base Excess 12.1 Joseluis Test Positive Microbiology Date/Time Source Procedure Growth Status 09/28/16 04:00 Sputum Gram Stain - Final Complete 09/28/16 04:00 Sputum Culture - Final Pseudomonas Aeruginosa Complete Intake and Output 09/29/16 09/30/16 19:00 07:00 Intake Total 1240 ml 1070 ml Output Total 475 ml 710 ml Balance 765 ml 360 ml Free Water 120 ml IV Total 400 ml 350 ml Tube Feeding 720 ml 720 ml Output Urine Total 475 ml 710 ml Objective General Appearance: moderate distress, thin EENT: PERRL/EOMI, normal ENT inspection Neck: non-tender, normal alignment, supple Cardiovascular: normal peripheral pulses, normal rate, regular rhythm, no gallop/murmur, no JVD Respiratory/Chest: Mech Vent; respiratory distress, crackles/rales, rhonchi - bilaterally, expiratory wheezing Abdomen: non tender, soft, no organomegaly, no mass, decreased bowel sounds Extremities: normal range of motion Skin: normal pigmentation, warm/dry Assessment/Plan Problem List: (1) Lung nodule (2) DVT (deep venous thrombosis) (3) Acute respiratory failure Assessment & Plan: Cont vent per pulmonary (4) COPD exacerbation Assessment & Plan: Continue IV solumedrol and duoneb. Continue vent per pulmonary. (5) Pneumonia Assessment & Plan: D/C antibiotics per TADEO JAMISON Sep 30, 2016 12:51
[2016-10-01] VITALS (24 sets, daily range): BP systolic 87–128; BP diastolic 62–97
[2016-10-01] MEDS: LORazepam Inj 2mg/ml 1ml IV PRN ×2 (01:04→05:52)
[2016-10-01] MEDS: NovoLOG Insulin Flexpen SUBQ SCH ×3 (05:51→17:47)
--- NOTE | 2016-10-01 06:36 | Infectious Diseases Prog Note ---
Assessment/Plan Assessment/Plan ASSESSMENT: 66 y/o male with: // COPD exacerbation - delayed SCx 4+ PSA - CXR 09/27: Lungs are hyperinflated. No new infiltrates - negative: influenza // Leukocytosis - recurrent, afebrile ( on steroids ) // Acute VDRF - intubated 09/20, may need trach // Severe pulmonary HTN / grade I diastolic dysfunction / mod TR // Pulmonary nodules // Chronic RLE DVT // Tobacco abuse // [facility] resident // Negative MRSA, VRE screens // NKDA // Full Code PLAN: - on doretha nebs d# 2 for secretions, PSA. Will re-culture, re-start IV ABX if febrile or worsening leukocytosis ( 09/24 SP amikacin, invanz d# 5 / 5 ) ( 09/21 SP IV vancomycin d# 2 ) - taper steroids per pulm - monitor CBC, temperatures - monitor BMP - monitor CXR - vent support, wean as tolerated. May need trach Subjective Constitutional: Denies: anorexia, chills, drenching sweats, fatigue, fever, no symptoms, other Allergies: Coded Allergies: No Known Allergies (Unverified , 06/17/16) Objective Vital Signs Last 24 Hour Vital Signs Date Time Temp Pulse Resp B/P Pulse Ox O2 Delivery O2 Flow Rate FiO2 10/01/16 05:32 130 22 40 10/01/16 04:48 121 20 111/73 100 Mechanical Ventilator 50 10/01/16 04:00 40 10/01/16 04:00 81 10/01/16 03:34 114 19 40 10/01/16 03:00 114 21 118/78 100 Mechanical Ventilator 50 10/01/16 02:00 105 18 118/78 100 Mechanical Ventilator 50 10/01/16 01:15 106 19 40 10/01/16 01:00 105 18 118/70 100 Mechanical Ventilator 50 10/01/16 00:00 40 10/01/16 00:00 98.0 100 20 100/74 100 Mechanical Ventilator 40 10/01/16 00:00 95 09/30/16 23:55 95 16 100 Mechanical Ventilator 40 09/30/16 23:47 93 16 99 Mechanical Ventilator 40 09/30/16 23:46 99 16 40 09/30/16 23:00 96 18 111/62 100 Mechanical Ventilator 40 09/30/16 22:00 91 20 94/66 100 Mechanical Ventilator 40 09/30/16 21:41 88 17 40 09/30/16 21:00 84 16 105/82 100 Mechanical Ventilator 40 09/30/16 20:00 97.6 86 13 90/68 100 Mechanical Ventilator 40 09/30/16 20:00 40 09/30/16 20:00 86 09/30/16 19:45 90 17 40 09/30/16 19:00 88 14 117/80 100 Mechanical Ventilator 40 09/30/16 18:00 90 23 90/56 100 Mechanical Ventilator 40 09/30/16 17:30 93 15 40 09/30/16 17:00 93 25 97/67 100 Mechanical Ventilator 40 09/30/16 16:00 40 09/30/16 16:00 97.4 93 18 94/62 100 Mechanical Ventilator 40 09/30/16 16:00 90 09/30/16 15:03 87 16 40 09/30/16 15:00 90 18 92/65 100 Mechanical Ventilator 40 09/30/16 14:00 81 19 90/65 100 Mechanical Ventilator 40 09/30/16 13:11 91 16 40 09/30/16 13:00 89 17 96/50 100 Mechanical Ventilator 40 09/30/16 12:00 40 09/30/16 12:00 98.1 84 18 87/43 100 Mechanical Ventilator 40 09/30/16 12:00 90 09/30/16 11:12 93 14 40 09/30/16 11:00 90 17 101/80 100 Mechanical Ventilator 40 09/30/16 10:00 100 17 106/79 100 Mechanical Ventilator 40 09/30/16 09:14 94 16 40 09/30/16 09:00 89 16 99/65 100 Mechanical Ventilator 40 09/30/16 08:00 97.8 92 16 106/72 100 Mechanical Ventilator 40 09/30/16 07:51 86 16 40 09/30/16 07:00 95 16 101/59 100 Mechanical Ventilator 40 Height (Feet): 6 Height (Inches): 2.00 Weight (Pounds): 127 HEENT: atraumatic Respiratory/Chest: normal breath sounds Cardiovascular: regularly irregular Abdomen: no organomegaly Laboratory Tests Test 09/30/16 09:52 Arterial Blood pH 7.378 (7.350-7.450) Arterial Blood Partial Pressure CO2 68.5 mmHg (35.0-45.0) *H Arterial Blood Partial Pressure O2 147.0 mmHg (75.0-100.0) H Arterial Blood HCO3 39.4 mmol/L (22.0-26.0) H Arterial Blood Oxygen Saturation 98.5 % (92.0-98.0) H Arterial Blood Base Excess 12.1 Joseluis Test Positive Current Medications Medications (Trade) Dose Ordered Sig/Shraddha Route PRN Reason Start Time Stop Time Status Last Admin Dose Admin Acetaminophen (Tylenol) 650 mg Q4H PRN ORAL fever>100.5 09/20/16 18:30 10/20/16 18:29 09/29/16 10:54 Albuterol/ Ipratropium (DuoNeb 0.5-3(2.5)mg/3ml) 3 ml Q4HR PRN HHN Shortness of Breath 09/27/16 22:00 10/02/16 21:59 09/27/16 21:28 Dextrose (D5W 1000ml) 1,000 ml @ 50 mls/hr Q20H IV 09/27/16 11:30 10/27/16 11:29 09/30/16 20:00 Dextrose (Dextrose 50%) STAT PRN IV Hypoglycemia 09/21/16 16:45 10/21/16 16:44 Heparin Sodium (Porcine) (Heparin 5000 units/ml) 5,000 units EVERY 12 HOURS SUBQ 09/20/16 21:00 10/20/16 20:59 09/30/16 20:34 Insulin Aspart (NovoLOG) start when feeding started Q6HR SUBQ 09/21/16 18:00 10/21/16 17:59 10/01/16 05:51 Lorazepam (Ativan 2mg/ml 1ml) 1 mg Q4H PRN IV For Anxiety 09/30/16 15:30 10/07/16 15:29 10/01/16 05:52 Methylprednisolone Sodium Succinate (Solu-MEDROL) 40 mg EVERY 12 HOURS IVP 09/24/16 21:00 10/24/16 20:59 09/30/16 20:34 Ondansetron HCl (Zofran) 4 mg Q6H PRN IVP Nausea & Vomiting 09/20/16 18:30 10/20/16 18:29 09/25/16 08:49 Pantoprazole 40 mg 40 mg DAILY IVP 09/25/16 09:00 10/25/16 08:59 09/30/16 09:36 Polyethylene Glycol (Miralax) 17 gm DAILYPRN PRN ORAL Constipation 09/20/16 18:30 10/20/16 18:29 Tobramycin Sulfate (Nebcin) 300 mg Q12HR@10,22 INH 09/30/16 10:00 10/07/16 09:59 09/30/16 22:00 KIMBERLEE HINKLE M.D. Oct 01, 2016 06:36
[2016-10-01] MEDS: Pantoprazole Inj IVP SCH (08:34)
[2016-10-01] MEDS: Solu-MEDROL 40mg Inj IVP SCH (08:34)
[2016-10-01] MEDS: Heparin 5000 units/ml inj SUBQ SCH ×2 (08:36→21:17)
[2016-10-01 09:27] LABS: ABG ALLEN TEST POSITIVE; ABG BASE EXCESS 12.2; ABG PCO2 66.1 mmHg (35.0-45.0)
[2016-10-01] MEDS: Tobramycin for inhalation INH SCH ×2 (09:56→19:43)
--- NOTE | 2016-10-01 11:14 | Pulmonolgy Critical Care Note ---
Critical Care - Asmt/Plan Problems: (1) Respiratory failure (2) COPD exacerbation (3) Pneumonia (4) Altered mental status Respiratory: monitor respiratory rate, adjust FIO2 Cardiac: continue pressors Renal: F/U I&O, keep IV fluid Infectious Disease: check cultures Endocrine: check TSH, check HgA1C, continue sliding scale insulin Hematologic: monitor H/H, transfuse if hgb<8.5 Neurologic: PRN Morphine, keep patient comfortable Prophylaxis: Protonix, Heparin Notes Reviewed: cooker casing, cardio, renal Critical Care - Objective Last 24 Hour Vital Signs Date Time Temp Pulse Resp B/P Pulse Ox O2 Delivery O2 Flow Rate FiO2 10/01/16 10:57 123 16 40 10/01/16 10:05 129 16 100 Mechanical Ventilator 40 10/01/16 10:00 98.1 129 17 128/97 100 Mechanical Ventilator 40 10/01/16 09:50 132 16 99 Mechanical Ventilator 40 10/01/16 09:33 98.1 10/01/16 09:04 145 18 40 10/01/16 09:00 138 17 118/74 97 Mechanical Ventilator 40 10/01/16 08:00 99.1 142 18 108/70 99 Mechanical Ventilator 40 10/01/16 08:00 143 10/01/16 08:00 40 10/01/16 07:11 142 18 40 10/01/16 07:00 128 25 127/85 100 Mechanical Ventilator 40 10/01/16 06:00 130 20 119/89 100 Mechanical Ventilator 40 10/01/16 05:32 130 22 40 10/01/16 05:00 97.9 126 19 119/86 100 Mechanical Ventilator 40 10/01/16 04:48 121 20 111/73 100 Mechanical Ventilator 40 10/01/16 04:00 40 10/01/16 04:00 118 10/01/16 03:34 114 19 40 10/01/16 03:00 114 21 118/78 100 Mechanical Ventilator 40 10/01/16 02:00 105 18 118/78 100 Mechanical Ventilator 50 10/01/16 01:15 106 19 40 10/01/16 01:00 105 18 118/70 100 Mechanical Ventilator 50 10/01/16 00:00 40 10/01/16 00:00 98.0 100 20 100/74 100 Mechanical Ventilator 40 10/01/16 00:00 95 09/30/16 23:55 95 16 100 Mechanical Ventilator 40 09/30/16 23:47 93 16 99 Mechanical Ventilator 40 09/30/16 23:46 99 16 40 09/30/16 23:00 96 18 111/62 100 Mechanical Ventilator 40 09/30/16 22:00 91 20 94/66 100 Mechanical Ventilator 40 09/30/16 21:41 88 17 40 09/30/16 21:00 84 16 105/82 100 Mechanical Ventilator 40 09/30/16 20:00 97.6 86 13 90/68 100 Mechanical Ventilator 40 09/30/16 20:00 40 09/30/16 20:00 86 09/30/16 19:45 90 17 40 09/30/16 19:00 88 14 117/80 100 Mechanical Ventilator 40 09/30/16 18:00 90 23 90/56 100 Mechanical Ventilator 40 09/30/16 17:30 93 15 40 09/30/16 17:00 93 25 97/67 100 Mechanical Ventilator 40 09/30/16 16:00 40 09/30/16 16:00 97.4 93 18 94/62 100 Mechanical Ventilator 40 09/30/16 16:00 90 09/30/16 15:03 87 16 40 09/30/16 15:00 90 18 92/65 100 Mechanical Ventilator 40 09/30/16 14:00 81 19 90/65 100 Mechanical Ventilator 40 09/30/16 13:11 91 16 40 09/30/16 13:00 89 17 96/50 100 Mechanical Ventilator 40 09/30/16 12:00 40 09/30/16 12:00 98.1 84 18 87/43 100 Mechanical Ventilator 40 09/30/16 12:00 90 Status: awake Condition: critical, grave HEENT: atraumatic Neck: full ROM Lungs: clear Heart: HR/BP stable, HR/BP unstable Abdomen: non-tender, active bowel sounds Extremities: no C/C/E, edema Decubiti: location Accucheck: 141 Critical Care - Subjective ROS Limited/Unobtainable: No ICU Day: 11 Intubation Day: 11 Interval Events: scheduled for tracheostomy EKG Rhythm: Sinus Rhythm FI02: 40 Vent Support Breath Rate: 16 Vent Support Mode: AC Vent Tidal Volume: 600 Sputum Amount: Large PEEP: 5.0 PIP: 37 Tube Feeding Amount: 60 I&O: Intake and Output 09/30/16 10/01/16 19:00 07:00 Intake Total 1400 ml 1390 ml Output Total 425 ml 445 ml Balance 975 ml 945 ml Free Water 180 ml 120 ml IV Total 500 ml 550 ml Tube Feeding 720 ml 720 ml Output Urine Total 425 ml 445 ml CXR: no change, ET in good position ET-Tube: 8.0 ET Position: 24 Labs: Laboratory Tests Test 10/01/16 09:15 10/01/16 10:20 Arterial Blood pH 7.393 (7.350-7.450) Arterial Blood Partial Pressure CO2 66.1 mmHg (35.0-45.0) *H Arterial Blood Partial Pressure O2 127.5 mmHg (75.0-100.0) H Arterial Blood HCO3 39.4 mmol/L (22.0-26.0) H Arterial Blood Oxygen Saturation 98.4 % (92.0-98.0) H Arterial Blood Base Excess 12.2 Joseluis Test Positive White Blood Count Pending Red Blood Count Pending Hemoglobin Pending Hematocrit Pending Mean Corpuscular Volume Pending Mean Corpuscular Hemoglobin Pending Mean Corpuscular Hemoglobin Concent Pending Red Cell Distribution Width Pending Platelet Count Pending Mean Platelet Volume Pending Neutrophils (%) (Auto) Pending Lymphocytes (%) (Auto) Pending Monocytes (%) (Auto) Pending Eosinophils (%) (Auto) Pending Basophils (%) (Auto) Pending Sodium Level Pending Potassium Level Pending Chloride Level Pending Carbon Dioxide Level Pending Blood Urea Nitrogen Pending Creatinine Pending Estimat Glomerular Filtration Rate Pending Glucose Level Pending Calcium Level Pending Phosphorus Level Pending Magnesium Level Pending Total Bilirubin Pending Aspartate Amino Transf (AST/SGOT) Pending Alanine Aminotransferase (ALT/SGPT) Pending Alkaline Phosphatase Pending Total Protein Pending Albumin Pending Globulin Pending REN WRIGHT Oct 01, 2016 11:14
[2016-10-01 11:15] LABS: MEAN CORPUSCULAR HEMOGLOBIN 27.8 PG (27.0-31.0); MEAN CORPUSCULAR HGB CONC 30.5 G/DL (32.0-36.0); MEAN CORPUSCULAR VOLUME 91 FL (80-99); MEAN PLATELET VOLUME 6.3 FL (6.5-10.1); PLATELET COUNT 310 K/UL (150-450); RED BLOOD COUNT 3.51 M/UL (4.70-6.10); RED CELL DISTRIBUTION WIDTH 15.3 % (11.6-14.8)
[2016-10-01 11:26] LABS: WHITE BLOOD COUNT 46.2 K/UL (4.8-10.8)
[2016-10-01 11:30] LABS: ALANINE AMINOTRANSFERASE 27 U/L (3-41); ALBUMIN/GLOBULIN RATIO 0.9 (1.0-2.7); ANION GAP 8 (5-15); ASPARTATE AMINO TRANSFERASE 19 U/L (5-40); CALCIUM 9.1 mg/dL (8.6-10.2); CARBON DIOXIDE 35 mEQ/L (20-30); CHLORIDE 95 mEQ/L (98-107); CREATININE 0.7 mg/dL (0.7-1.2); GLOMERULAR FILTRATION RATE > 60 mL/min (>60); HEMOLYSIS 5; MAGNESIUM 2.1 mg/dL (1.7-2.5); PHOSPHORUS 3.5 mg/dL (2.5-4.8); POTASSIUM 4.2 mEQ/L (3.4-4.9); SODIUM 138 mEQ/L (135-145); TOTAL PROTEIN 6.1 g/dL (6.6-8.7)
--- NOTE | 2016-10-01 12:07 | Diagnostic Imaging Report ---
Indications: DYSPNEA Technique: Portable AP chest Findings: Comparison: 09/30/16 Lungs are symmetrically hyperinflated but clear. Cardiac cell silhouette stable. No pleural abnormality demonstrated. Endotracheal tube remains in place. Nasogastric tube not currently identified. IMPRESSION: No evidence of acute cardiopulmonary disease, unchanged Apparent removal of nasogastric tube
[2016-10-01 12:16] LABS: BAND NEUTROPHILS % (MANUAL) 7 % (0-8); BASOPHILS % (MANUAL) 0 % (0-2); EOSINOPHILS % (MANUAL) 0 % (0-3); LYMPHOCYTES % (MANUAL) 3 % (20-45); NEUTROPHILS % (MANUAL) 84 % (45-75); PLATELET ESTIMATE ADEQUATE; PLATELET MORPHOLOGY NORMAL; TOTAL CELLS COUNTED 100
[2016-10-01 12:17] LABS: ANISOCYTOSIS 1+; HYPOCHROMASIA 2+
--- NOTE | 2016-10-01 16:01 | Diagnostic Imaging Report ---
Indications: Nasogastric tube placement Technique: Portable AP abdomen Findings: Comparison: 09/27/16 Much of the thorax is included on image. Lower abdomen and pelvis excluded from image. Nasogastric tube tip currently projects over the region of the distal thoracic esophagus 2 centimeters above the diaphragm. Visualized bowel gas pattern remains unremarkable. Degenerative changes again noted in lumbar spine. IMPRESSION: Nasogastric tube tip in distal thoracic esophagus, recommend advancement 10-15 cm
--- NOTE | 2016-10-01 16:15 | Internal Med Progress Note ---
Subjective Date of Service: Oct 01, 2016 Physician Name Tadeo Verdin Attending Physician Steve Rader MD Current Medications Medications (Trade) Dose Ordered Sig/Shraddha Route PRN Reason Start Time Stop Time Status Last Admin Dose Admin Acetaminophen (Tylenol) 650 mg Q4H PRN ORAL fever>100.5 09/20/16 18:30 10/20/16 18:29 10/01/16 08:34 Albuterol/ Ipratropium (DuoNeb 0.5-3(2.5)mg/3ml) 3 ml Q4HR PRN HHN Shortness of Breath 09/27/16 22:00 10/02/16 21:59 09/27/16 21:28 Dextrose (D5W 1000ml) 1,000 ml @ 50 mls/hr Q20H IV 09/27/16 11:30 10/27/16 11:29 10/01/16 14:58 Dextrose (Dextrose 50%) STAT PRN IV Hypoglycemia 09/21/16 16:45 10/21/16 16:44 Heparin Sodium (Porcine) (Heparin 5000 units/ml) 5,000 units EVERY 12 HOURS SUBQ 09/20/16 21:00 10/20/16 20:59 10/01/16 08:36 Insulin Aspart (NovoLOG) start when feeding started Q6HR SUBQ 09/21/16 18:00 10/21/16 17:59 10/01/16 12:04 Lorazepam (Ativan 2mg/ml 1ml) 1 mg Q4H PRN IV For Anxiety 09/30/16 15:30 10/07/16 15:29 10/01/16 05:52 Ondansetron HCl (Zofran) 4 mg Q6H PRN IVP Nausea & Vomiting 09/20/16 18:30 10/20/16 18:29 09/25/16 08:49 Pantoprazole 40 mg 40 mg DAILY IVP 09/25/16 09:00 10/25/16 08:59 10/01/16 08:34 Polyethylene Glycol (Miralax) 17 gm DAILYPRN PRN ORAL Constipation 09/20/16 18:30 10/20/16 18:29 Tobramycin Sulfate (Nebcin) 300 mg Q12HR@10,22 INH 09/30/16 10:00 10/07/16 09:59 10/01/16 09:56 Allergies: Coded Allergies: No Known Allergies (Unverified , 06/17/16) ROS Limited/Unobtainable: Yes Subjective 66 YO M admitted with respiratory failure. ICU. Intubated and sedated. Worsening leukocytosis=46K. Cover for Stanislav Rader. Objective Last Vital Signs Date Time Temp Pulse Resp B/P Pulse Ox O2 Delivery O2 Flow Rate FiO2 10/01/16 15:03 101 16 40 10/01/16 15:00 94/68 99 Mechanical Ventilator 10/01/16 12:00 97.8 09/22/16 19:13 15.0 Laboratory Tests Test 10/01/16 09:15 10/01/16 10:20 Arterial Blood pH 7.393 (7.350-7.450) Arterial Blood Partial Pressure CO2 66.1 mmHg (35.0-45.0) *H Arterial Blood Partial Pressure O2 127.5 mmHg (75.0-100.0) H Arterial Blood HCO3 39.4 mmol/L (22.0-26.0) H Arterial Blood Oxygen Saturation 98.4 % (92.0-98.0) H Arterial Blood Base Excess 12.2 Joseluis Test Positive White Blood Count 46.2 K/UL (4.8-10.8) #*H Red Blood Count 3.51 M/UL (4.70-6.10) L Hemoglobin 9.7 G/DL (14.2-18.0) L Hematocrit 32.0 % (42.0-52.0) L Mean Corpuscular Volume 91 FL (80-99) Mean Corpuscular Hemoglobin 27.8 PG (27.0-31.0) Mean Corpuscular Hemoglobin Concent 30.5 G/DL (32.0-36.0) L Red Cell Distribution Width 15.3 % (11.6-14.8) H Platelet Count 310 K/UL (150-450) Mean Platelet Volume 6.3 FL (6.5-10.1) L Neutrophils (%) (Auto) % (45.0-75.0) Lymphocytes (%) (Auto) % (20.0-45.0) Monocytes (%) (Auto) % (1.0-10.0) Eosinophils (%) (Auto) % (0.0-3.0) Basophils (%) (Auto) % (0.0-2.0) Differential Total Cells Counted 100 Neutrophils % (Manual) 84 % (45-75) H Lymphocytes % (Manual) 3 % (20-45) L Monocytes % (Manual) 6 % (1-10) Eosinophils % (Manual) 0 % (0-3) Basophils % (Manual) 0 % (0-2) Band Neutrophils 7 % (0-8) Platelet Estimate Adequate Platelet Morphology Normal Hypochromasia 2+ Anisocytosis 1+ Sodium Level 138 mEQ/L (135-145) Potassium Level 4.2 mEQ/L (3.4-4.9) Chloride Level 95 mEQ/L (98-107) L Carbon Dioxide Level 35 mEQ/L (20-30) H Anion Gap 8 (5-15) Blood Urea Nitrogen 21 mg/dL (7-23) Creatinine 0.7 mg/dL (0.7-1.2) Estimat Glomerular Filtration Rate > 60 mL/min (>60) Glucose Level 150 mg/dL (74-106) H Calcium Level 9.1 mg/dL (8.6-10.2) Phosphorus Level 3.5 mg/dL (2.5-4.8) Magnesium Level 2.1 mg/dL (1.7-2.5) Total Bilirubin 0.4 mg/dL (0.0-1.2) Aspartate Amino Transf (AST/SGOT) 19 U/L (5-40) Alanine Aminotransferase (ALT/SGPT) 27 U/L (3-41) Alkaline Phosphatase 81 U/L (40-129) Total Protein 6.1 g/dL (6.6-8.7) L Albumin 2.9 g/dL (3.5-5.2) L Globulin 3.2 g/dL Albumin/Globulin Ratio 0.9 (1.0-2.7) L Intake and Output 09/30/16 10/01/16 19:00 07:00 Intake Total 1400 ml 1390 ml Output Total 425 ml 445 ml Balance 975 ml 945 ml Free Water 180 ml 120 ml IV Total 500 ml 550 ml Tube Feeding 720 ml 720 ml Output Urine Total 425 ml 445 ml Objective General Appearance: moderate distress, thin EENT: PERRL/EOMI, normal ENT inspection Neck: non-tender, normal alignment, supple Cardiovascular: normal peripheral pulses, normal rate, regular rhythm, no gallop/murmur, no JVD Respiratory/Chest: Mech Vent; respiratory distress, crackles/rales, rhonchi - bilaterally, expiratory wheezing Abdomen: non tender, soft, no organomegaly, no mass, decreased bowel sounds Extremities: normal range of motion Skin: normal pigmentation, warm/dry Assessment/Plan Problem List: (1) Lung nodule (2) DVT (deep venous thrombosis) (3) Acute respiratory failure Assessment & Plan: Cont vent per pulmonary (4) COPD exacerbation Assessment & Plan: Continue IV solumedrol and duoneb. Continue vent per pulmonary. (5) Pneumonia Assessment & Plan: D/C antibiotics per ID (6) Leukocytosis Assessment & Plan: D/C solumedrol per pulm. ?abx?see ID note. Status: not improved TADEO VERDIN Oct 01, 2016 16:15
--- NOTE | 2016-10-01 17:39 | Consultation ---
DATE OF CONSULTATION: 10/01/2016 HEAD AND NECK SURGERY, AND ENT CONSULTATION CONSULTING PHYSICIAN: Ravinder Escalona M.D. REFERRING PHYSICIAN: Demetrius Andrade M.D. INDICATION FOR CONSULTATION: This is a 66-year-old male, who has respiratory failure and is intubated without anticipation of extubation in the near future. I have asked that I do a trach on him. PAST MEDICAL HISTORY: Significant for emphysema of the lung, acute respiratory failure, COPD, pneumonia, severe anemia, lung nodule, encephalopathy state, bronchitis, DVT, hypoalbuminemia, acute blood loss, leukocytosis, positive occult stool blood tests, and LFTs abnormal. Unsure of all the details beyond what is given above. At the moment, he lives at [facility]. He has been intubated since the 09/21/2016. MEDICATIONS: Lorazepam, tobramycin sulfate, DuoNeb, Protonix, Solu-Medrol, NovoLog, heparin, Tylenol, MiraLAX, and Zofran. LABORATORY DATA: His labs indicate a white count of 14.8 as of yesterday, which is increasing. I do not see an INR, so I will order that. PHYSICAL EXAMINATION: GENERAL: The patient is 187.96 cm, 57.606 kg, and BMI of 16.3. HEENT: Head, normocephalic. Ears, normal. Mouth is closed due to the endotracheal tube being taped into it and secured. NECK: Good landmarks for a trach. ASSESSMENT: He is a candidate for tracheostomy, which is tentatively scheduled for as the second case. PLAN: He will need an INR to determine his status for coagulation. It may or may not need to be adjusted. Consent request has been placed. Thank very much for asking my opinion in the care and treatment of this patient. Ravinder Escalona M.D. DR: ROBIN JOB#: [id number] CC:
[2016-10-02] VITALS (24 sets, daily range): BP systolic 80–163; BP diastolic 53–100
[2016-10-02] MEDS: NovoLOG Insulin Flexpen SUBQ SCH ×4 (00:18→17:44)
[2016-10-02] MEDS: LORazepam Inj 2mg/ml 1ml IV PRN (02:14)
[2016-10-02 05:38] LABS: MEAN CORPUSCULAR HEMOGLOBIN 28.2 PG (27.0-31.0); MEAN CORPUSCULAR HGB CONC 31.1 G/DL (32.0-36.0); MEAN CORPUSCULAR VOLUME 91 FL (80-99); MEAN PLATELET VOLUME 7.2 FL (6.5-10.1); PLATELET COUNT 318 K/UL (150-450); RED BLOOD COUNT 3.35 M/UL (4.70-6.10); RED CELL DISTRIBUTION WIDTH 15.9 % (11.6-14.8)
[2016-10-02 05:47] LABS: INR 1.4 (0.9-1.1)
[2016-10-02 05:50] LABS: WHITE BLOOD COUNT 44.2 K/UL (4.8-10.8)
[2016-10-02 06:12] LABS: ALANINE AMINOTRANSFERASE 46 U/L (3-41); ALBUMIN/GLOBULIN RATIO 0.8 (1.0-2.7); ANION GAP 7 (5-15); ASPARTATE AMINO TRANSFERASE 28 U/L (5-40); CALCIUM 9.2 mg/dL (8.6-10.2); CARBON DIOXIDE 38 mEQ/L (20-30); CHLORIDE 94 mEQ/L (98-107); CREATININE 0.5 mg/dL (0.7-1.2); GLOMERULAR FILTRATION RATE > 60 mL/min (>60); HEMOLYSIS 0; MAGNESIUM 2.1 mg/dL (1.7-2.5); PHOSPHORUS 2.6 mg/dL (2.5-4.8); POTASSIUM 4.1 mEQ/L (3.4-4.9); SODIUM 139 mEQ/L (135-145); TOTAL PROTEIN 6.1 g/dL (6.6-8.7)
[2016-10-02] MEDS: Tobramycin for inhalation INH SCH ×2 (07:00→21:23)
[2016-10-02 07:18] LABS: ANISOCYTOSIS 1+; BAND NEUTROPHILS % (MANUAL) 2 % (0-8); BASOPHILS % (MANUAL) 0 % (0-2); EOSINOPHILS % (MANUAL) 0 % (0-3); HYPOCHROMASIA 2+; LYMPHOCYTES % (MANUAL) 1 % (20-45); NEUTROPHILS % (MANUAL) 92 % (45-75); PLATELET ESTIMATE ADEQUATE; PLATELET MORPHOLOGY NORMAL; TOTAL CELLS COUNTED 100
[2016-10-02] MEDS: Pantoprazole Inj IVP SCH (08:56)
[2016-10-02] MEDS: Heparin 5000 units/ml inj SUBQ SCH (08:57)
--- NOTE | 2016-10-02 10:38 | Pulmonolgy Critical Care Note ---
Critical Care - Asmt/Plan Problems: (1) Respiratory failure (2) COPD exacerbation (3) Pneumonia (4) Altered mental status Respiratory: monitor respiratory rate, adjust FIO2, CXR Cardiac: continue to monitor HR/BP Renal: F/U I&O, keep IV fluid Infectious Disease: check cultures, other - start empiric treatment for cdiff, b/o diarrhia, Leukocytosis and new onset fever Gastrointestinal: continue feedings/current rate, hold feedings Endocrine: monitor blood sugar, check HgA1C, continue sliding scale insulin Hematologic: monitor H/H, transfuse if hgb<8.5, other - Vitamin K and FFp to corrrect INR of 1.4 Neurologic: PRN Ativan, PRN Morphine, keep patient comfortable Prophylaxis: Protonix, Heparin Notes 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, 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, consultants, binder caser, family member Critical Care - Objective Last 24 Hour Vital Signs Date Time Temp Pulse Resp B/P Pulse Ox O2 Delivery O2 Flow Rate FiO2 10/02/16 09:07 128 16 40 10/02/16 09:00 99.7 128 16 97/73 100 Mechanical Ventilator 40 10/02/16 08:00 40 10/02/16 08:00 99.4 130 18 80/62 100 Mechanical Ventilator 40 10/02/16 08:00 120 10/02/16 07:33 99.4 10/02/16 07:03 118 16 100 Mechanical Ventilator 40 10/02/16 07:00 121 18 100/71 100 Mechanical Ventilator 40 10/02/16 06:56 128 16 40 10/02/16 06:50 128 16 100 Mechanical Ventilator 40 10/02/16 06:00 101.3 128 16 124/80 99 Mechanical Ventilator 40 10/02/16 05:12 106 16 40 10/02/16 05:00 127 18 108/70 99 Mechanical Ventilator 40 10/02/16 04:00 124 10/02/16 04:00 98.8 124 16 113/84 99 Mechanical Ventilator 40 10/02/16 04:00 40 10/02/16 03:12 124 16 40 10/02/16 03:00 121 16 100/76 99 Mechanical Ventilator 40 10/02/16 02:00 139 18 163/94 98 Mechanical Ventilator 40 10/02/16 01:13 117 17 40 10/02/16 01:00 112 21 121/100 100 Mechanical Ventilator 40 10/02/16 00:00 40 10/02/16 00:00 98.5 104 16 101/68 100 Mechanical Ventilator 40 10/02/16 00:00 111 10/01/16 23:00 97 16 104/68 100 Mechanical Ventilator 40 10/01/16 22:39 96 16 40 10/01/16 22:00 107 15 104/84 100 Mechanical Ventilator 40 10/01/16 21:00 104 14 100/70 100 Mechanical Ventilator 40 10/01/16 20:52 97 16 100 Mechanical Ventilator 40 10/01/16 20:44 94 16 99 Mechanical Ventilator 40 10/01/16 20:44 92 16 40 10/01/16 20:00 97 10/01/16 20:00 97.4 93 16 97/67 100 Mechanical Ventilator 40 10/01/16 20:00 40 10/01/16 19:05 96 16 40 10/01/16 19:00 94 15 104/67 100 Mechanical Ventilator 40 10/01/16 18:00 99 17 99/84 100 Mechanical Ventilator 40 10/01/16 17:00 95 18 90/69 97 Mechanical Ventilator 40 10/01/16 16:54 93 16 40 10/01/16 16:00 93 10/01/16 16:00 97.7 93 16 98/62 100 Mechanical Ventilator 40 10/01/16 16:00 40 10/01/16 15:03 101 16 40 10/01/16 15:00 101 18 94/68 99 Mechanical Ventilator 40 10/01/16 14:00 103 17 93/63 99 Mechanical Ventilator 40 10/01/16 13:20 107 16 40 10/01/16 13:00 109 17 87/62 97 Mechanical Ventilator 40 10/01/16 12:00 113 10/01/16 12:00 97.8 114 16 96/64 98 Mechanical Ventilator 40 10/01/16 12:00 40 10/01/16 11:00 115 17 101/68 98 Mechanical Ventilator 40 10/01/16 10:57 123 16 40 Status: sedated, somnolent Condition: critical HEENT: atraumatic, normocephalic Lungs: clear, chest wall tender Heart: HR/BP stable Abdomen: soft, non-tender, active bowel sounds, feeding tube Extremities: edema Decubiti: location Accucheck: 136 Critical Care - Subjective ROS Limited/Unobtainable: Yes ICU Day: 12 Condition: critical EKG Rhythm: Sinus Rhythm FI02: 40 Vent Support Breath Rate: 16 Vent Support Mode: AC Vent Tidal Volume: 600 Sputum Amount: Large PEEP: 5.0 PIP: 36 Tube Feeding Amount: 60 I&O: Intake and Output 10/01/16 10/02/16 19:00 07:00 Intake Total 1350 ml 1380 ml Output Total 855 ml 870 ml Balance 495 ml 510 ml Free Water 50 ml 60 ml IV Total 550 ml 600 ml Tube Feeding 720 ml 720 ml Other 30 ml Output Urine Total 855 ml 870 ml # Bowel Movements 1 CXR: no change ET-Tube: 8.0 ET Position: 24 Labs: Laboratory Tests Test 10/02/16 04:25 White Blood Count 44.2 K/UL (4.8-10.8) *H Red Blood Count 3.35 M/UL (4.70-6.10) L Hemoglobin 9.4 G/DL (14.2-18.0) L Hematocrit 30.4 % (42.0-52.0) L Mean Corpuscular Volume 91 FL (80-99) Mean Corpuscular Hemoglobin 28.2 PG (27.0-31.0) Mean Corpuscular Hemoglobin Concent 31.1 G/DL (32.0-36.0) L Red Cell Distribution Width 15.9 % (11.6-14.8) H Platelet Count 318 K/UL (150-450) Mean Platelet Volume 7.2 FL (6.5-10.1) Neutrophils (%) (Auto) % (45.0-75.0) Lymphocytes (%) (Auto) % (20.0-45.0) Monocytes (%) (Auto) % (1.0-10.0) Eosinophils (%) (Auto) % (0.0-3.0) Basophils (%) (Auto) % (0.0-2.0) Differential Total Cells Counted 100 Neutrophils % (Manual) 92 % (45-75) H Lymphocytes % (Manual) 1 % (20-45) L Monocytes % (Manual) 5 % (1-10) Eosinophils % (Manual) 0 % (0-3) Basophils % (Manual) 0 % (0-2) Band Neutrophils 2 % (0-8) Platelet Estimate Adequate Platelet Morphology Normal Hypochromasia 2+ Anisocytosis 1+ Prothrombin Time 14.0 SEC (9.30-11.50) H Prothromb Time International Ratio 1.4 (0.9-1.1) H Activated Partial Thromboplast Time 32 SEC (23-33) Sodium Level 139 mEQ/L (135-145) Potassium Level 4.1 mEQ/L (3.4-4.9) Chloride Level 94 mEQ/L (98-107) L Carbon Dioxide Level 38 mEQ/L (20-30) H Anion Gap 7 (5-15) Blood Urea Nitrogen 20 mg/dL (7-23) Creatinine 0.5 mg/dL (0.7-1.2) L Estimat Glomerular Filtration Rate > 60 mL/min (>60) Glucose Level 139 mg/dL (74-106) H Calcium Level 9.2 mg/dL (8.6-10.2) Phosphorus Level 2.6 mg/dL (2.5-4.8) Magnesium Level 2.1 mg/dL (1.7-2.5) Total Bilirubin 0.4 mg/dL (0.0-1.2) Aspartate Amino Transf (AST/SGOT) 28 U/L (5-40) Alanine Aminotransferase (ALT/SGPT) 46 U/L (3-41) H Alkaline Phosphatase 119 U/L (40-129) Total Protein 6.1 g/dL (6.6-8.7) L Albumin 2.8 g/dL (3.5-5.2) L Globulin 3.3 g/dL Albumin/Globulin Ratio 0.8 (1.0-2.7) L Hepatitis A IgM Antibody Pending Hepatitis B Surface Antigen Pending Hepatitis B Core IgM Antibody Pending Hepatitis C Antibody Pending REN WRIGHT Oct 02, 2016 10:38
--- NOTE | 2016-10-02 11:32 | Internal Med Progress Note ---
Subjective Date of Service: Oct 02, 2016 Physician Name Tadeo Verdin Attending Physician Steve Rader MD Current Medications Medications (Trade) Dose Ordered Sig/Shraddha Route PRN Reason Start Time Stop Time Status Last Admin Dose Admin Acetaminophen (Tylenol) 650 mg Q4H PRN ORAL fever>100.5 09/20/16 18:30 10/20/16 18:29 10/02/16 06:20 Albuterol/ Ipratropium (DuoNeb 0.5-3(2.5)mg/3ml) 3 ml Q4HR PRN HHN Shortness of Breath 09/27/16 22:00 10/02/16 21:59 09/27/16 21:28 Dextrose (D5W 1000ml) 1,000 ml @ 50 mls/hr Q20H IV 09/27/16 11:30 10/27/16 11:29 10/02/16 06:15 Dextrose (Dextrose 50%) STAT PRN IV Hypoglycemia 09/21/16 16:45 10/21/16 16:44 Insulin Aspart (NovoLOG) start when feeding started Q6HR SUBQ 09/21/16 18:00 10/21/16 17:59 10/02/16 06:17 Lorazepam 1 mg 1 mg Q4H PRN IV For Anxiety 09/30/16 15:30 10/07/16 15:29 10/02/16 02:14 Metronidazole (Flagyl) 100 ml @ 100 mls/hr Q8HR IVPB 10/02/16 12:00 10/09/16 11:59 Ondansetron HCl (Zofran) 4 mg Q6H PRN IVP Nausea & Vomiting 09/20/16 18:30 10/20/16 18:29 10/01/16 18:04 Pantoprazole 40 mg 40 mg DAILY IVP 09/25/16 09:00 10/25/16 08:59 10/02/16 08:56 Phytonadione/ Dextrose (Vitamin K/D5W) 56 ml @ 112 mls/hr ONCE ONCE IVPB 10/02/16 12:00 10/02/16 12:29 Polyethylene Glycol (Miralax) 17 gm DAILYPRN PRN ORAL Constipation 09/20/16 18:30 10/20/16 18:29 Tobramycin Sulfate (Nebcin) 300 mg Q12HR@10,22 INH 09/30/16 10:00 10/07/16 09:59 10/02/16 07:00 Vancomycin HCl 125 mg 125 mg FOUR TIMES A DAY ORAL 10/02/16 12:00 10/09/16 11:59 Allergies: Coded Allergies: No Known Allergies (Unverified , 06/17/16) ROS Limited/Unobtainable: Yes Subjective 66 YO M admitted with respiratory failure. ICU. Intubated and sedated. Worsening leukocytosis=46K. Cover for Int Med-Dr Rader. Objective Last Vital Signs Date Time Temp Pulse Resp B/P Pulse Ox O2 Delivery O2 Flow Rate FiO2 10/02/16 11:00 123 16 98/74 98 Mechanical Ventilator 40 10/02/16 10:00 99.3 Laboratory Tests Test 10/02/16 04:25 White Blood Count 44.2 K/UL (4.8-10.8) *H Red Blood Count 3.35 M/UL (4.70-6.10) L Hemoglobin 9.4 G/DL (14.2-18.0) L Hematocrit 30.4 % (42.0-52.0) L Mean Corpuscular Volume 91 FL (80-99) Mean Corpuscular Hemoglobin 28.2 PG (27.0-31.0) Mean Corpuscular Hemoglobin Concent 31.1 G/DL (32.0-36.0) L Red Cell Distribution Width 15.9 % (11.6-14.8) H Platelet Count 318 K/UL (150-450) Mean Platelet Volume 7.2 FL (6.5-10.1) Neutrophils (%) (Auto) % (45.0-75.0) Lymphocytes (%) (Auto) % (20.0-45.0) Monocytes (%) (Auto) % (1.0-10.0) Eosinophils (%) (Auto) % (0.0-3.0) Basophils (%) (Auto) % (0.0-2.0) Differential Total Cells Counted 100 Neutrophils % (Manual) 92 % (45-75) H Lymphocytes % (Manual) 1 % (20-45) L Monocytes % (Manual) 5 % (1-10) Eosinophils % (Manual) 0 % (0-3) Basophils % (Manual) 0 % (0-2) Band Neutrophils 2 % (0-8) Platelet Estimate Adequate Platelet Morphology Normal Hypochromasia 2+ Anisocytosis 1+ Prothrombin Time 14.0 SEC (9.30-11.50) H Prothromb Time International Ratio 1.4 (0.9-1.1) H Activated Partial Thromboplast Time 32 SEC (23-33) Sodium Level 139 mEQ/L (135-145) Potassium Level 4.1 mEQ/L (3.4-4.9) Chloride Level 94 mEQ/L (98-107) L Carbon Dioxide Level 38 mEQ/L (20-30) H Anion Gap 7 (5-15) Blood Urea Nitrogen 20 mg/dL (7-23) Creatinine 0.5 mg/dL (0.7-1.2) L Estimat Glomerular Filtration Rate > 60 mL/min (>60) Glucose Level 139 mg/dL (74-106) H Calcium Level 9.2 mg/dL (8.6-10.2) Phosphorus Level 2.6 mg/dL (2.5-4.8) Magnesium Level 2.1 mg/dL (1.7-2.5) Total Bilirubin 0.4 mg/dL (0.0-1.2) Aspartate Amino Transf (AST/SGOT) 28 U/L (5-40) Alanine Aminotransferase (ALT/SGPT) 46 U/L (3-41) H Alkaline Phosphatase 119 U/L (40-129) Total Protein 6.1 g/dL (6.6-8.7) L Albumin 2.8 g/dL (3.5-5.2) L Globulin 3.3 g/dL Albumin/Globulin Ratio 0.8 (1.0-2.7) L Hepatitis A IgM Antibody Pending Hepatitis B Surface Antigen Pending Hepatitis B Core IgM Antibody Pending Hepatitis C Antibody Pending Intake and Output 10/01/16 10/02/16 19:00 07:00 Intake Total 1350 ml 1380 ml Output Total 855 ml 870 ml Balance 495 ml 510 ml Free Water 50 ml 60 ml IV Total 550 ml 600 ml Tube Feeding 720 ml 720 ml Other 30 ml Output Urine Total 855 ml 870 ml # Bowel Movements 1 Objective General Appearance: moderate distress, thin EENT: PERRL/EOMI, normal ENT inspection Neck: non-tender, normal alignment, supple Cardiovascular: normal peripheral pulses, normal rate, regular rhythm, no gallop/murmur, no JVD Respiratory/Chest: Mech Vent; respiratory distress, crackles/rales, rhonchi - bilaterally, expiratory wheezing Abdomen: non tender, soft, no organomegaly, no mass, decreased bowel sounds Extremities: normal range of motion Skin: normal pigmentation, warm/dry Assessment/Plan Problem List: (1) Lung nodule (2) DVT (deep venous thrombosis) (3) Acute respiratory failure Assessment & Plan: Cont vent per pulmonary (4) COPD exacerbation Assessment & Plan: Continue IV solumedrol and duoneb. Continue vent per pulmonary. (5) Pneumonia Assessment & Plan: Restart antibiotics per ID-vanco and flagyl. (6) Leukocytosis Assessment & Plan: Worsening. D/C solumedrol per pulm. Start vanco and flagyl per ID note. Status: unchanged VERDIN,TADEO Oct 02, 2016 11:32
--- NOTE | 2016-10-02 11:47 | Infectious Diseases Prog Note ---
Assessment/Plan Assessment/Plan ASSESSMENT: 66 y/o male with: // COPD exacerbation - delayed SCx 4+ PSA - CXR 09/27: Lungs are hyperinflated. No new infiltrates - negative: influenza // Leukocytosis - improved ( on steroids ) - Diarrhea x 1 C Diff : P // Acute VDRF - intubated 09/20, may need trach // Severe pulmonary HTN / grade I diastolic dysfunction / mod TR // Pulmonary nodules // Chronic RLE DVT // Tobacco abuse // [place] resident // Negative MRSA, VRE screens // NKDA // Full Code PLAN: - on Jairon nebs d# 3 for secretions, PSA. on Flagyl and oral Vanco d# 1 ( 09/24 SP amikacin, invanz d# 5 / 5 ) ( 09/21 SP IV vancomycin d# 2 ) - taper steroids per pulm - monitor CBC, temperatures - monitor BMP - monitor CXR - vent support, wean as tolerated. May need trach - C Diff : P Subjective Constitutional: Denies: anorexia, chills, drenching sweats, fatigue, fever, no symptoms, other Allergies: Coded Allergies: No Known Allergies (Unverified , 06/17/16) Objective Vital Signs Last 24 Hour Vital Signs Date Time Temp Pulse Resp B/P Pulse Ox O2 Delivery O2 Flow Rate FiO2 10/02/16 11:00 123 16 98/74 98 Mechanical Ventilator 40 10/02/16 11:00 123 16 40 10/02/16 10:00 99.3 123 16 86/67 99 Mechanical Ventilator 40 10/02/16 09:07 128 16 40 10/02/16 09:00 99.7 128 16 97/73 100 Mechanical Ventilator 40 10/02/16 08:00 40 10/02/16 08:00 99.4 130 18 80/62 100 Mechanical Ventilator 40 10/02/16 08:00 120 10/02/16 07:33 99.4 10/02/16 07:03 118 16 100 Mechanical Ventilator 40 10/02/16 07:00 121 18 100/71 100 Mechanical Ventilator 40 10/02/16 06:56 128 16 40 10/02/16 06:50 128 16 100 Mechanical Ventilator 40 10/02/16 06:00 101.3 128 16 124/80 99 Mechanical Ventilator 40 10/02/16 05:12 106 16 40 10/02/16 05:00 127 18 108/70 99 Mechanical Ventilator 40 10/02/16 04:00 124 10/02/16 04:00 98.8 124 16 113/84 99 Mechanical Ventilator 40 10/02/16 04:00 40 10/02/16 03:12 124 16 40 10/02/16 03:00 121 16 100/76 99 Mechanical Ventilator 40 10/02/16 02:00 139 18 163/94 98 Mechanical Ventilator 40 10/02/16 01:13 117 17 40 10/02/16 01:00 112 21 121/100 100 Mechanical Ventilator 40 10/02/16 00:00 40 10/02/16 00:00 98.5 104 16 101/68 100 Mechanical Ventilator 40 10/02/16 00:00 111 10/01/16 23:00 97 16 104/68 100 Mechanical Ventilator 40 10/01/16 22:39 96 16 40 10/01/16 22:00 107 15 104/84 100 Mechanical Ventilator 40 10/01/16 21:00 104 14 100/70 100 Mechanical Ventilator 40 10/01/16 20:52 97 16 100 Mechanical Ventilator 40 10/01/16 20:44 94 16 99 Mechanical Ventilator 40 10/01/16 20:44 92 16 40 10/01/16 20:00 97 10/01/16 20:00 97.4 93 16 97/67 100 Mechanical Ventilator 40 10/01/16 20:00 40 10/01/16 19:05 96 16 40 10/01/16 19:00 94 15 104/67 100 Mechanical Ventilator 40 10/01/16 18:00 99 17 99/84 100 Mechanical Ventilator 40 10/01/16 17:00 95 18 90/69 97 Mechanical Ventilator 40 10/01/16 16:54 93 16 40 10/01/16 16:00 93 10/01/16 16:00 97.7 93 16 98/62 100 Mechanical Ventilator 40 10/01/16 16:00 40 10/01/16 15:03 101 16 40 10/01/16 15:00 101 18 94/68 99 Mechanical Ventilator 40 10/01/16 14:00 103 17 93/63 99 Mechanical Ventilator 40 10/01/16 13:20 107 16 40 10/01/16 13:00 109 17 87/62 97 Mechanical Ventilator 40 10/01/16 12:00 113 10/01/16 12:00 97.8 114 16 96/64 98 Mechanical Ventilator 40 10/01/16 12:00 40 Height (Feet): 6 Height (Inches): 2.00 Weight (Pounds): 127 HEENT: atraumatic Respiratory/Chest: normal breath sounds Cardiovascular: regular rhythm Abdomen: soft, non tender Laboratory Tests Test 10/02/16 04:25 White Blood Count 44.2 K/UL (4.8-10.8) *H Red Blood Count 3.35 M/UL (4.70-6.10) L Hemoglobin 9.4 G/DL (14.2-18.0) L Hematocrit 30.4 % (42.0-52.0) L Mean Corpuscular Volume 91 FL (80-99) Mean Corpuscular Hemoglobin 28.2 PG (27.0-31.0) Mean Corpuscular Hemoglobin Concent 31.1 G/DL (32.0-36.0) L Red Cell Distribution Width 15.9 % (11.6-14.8) H Platelet Count 318 K/UL (150-450) Mean Platelet Volume 7.2 FL (6.5-10.1) Neutrophils (%) (Auto) % (45.0-75.0) Lymphocytes (%) (Auto) % (20.0-45.0) Monocytes (%) (Auto) % (1.0-10.0) Eosinophils (%) (Auto) % (0.0-3.0) Basophils (%) (Auto) % (0.0-2.0) Differential Total Cells Counted 100 Neutrophils % (Manual) 92 % (45-75) H Lymphocytes % (Manual) 1 % (20-45) L Monocytes % (Manual) 5 % (1-10) Eosinophils % (Manual) 0 % (0-3) Basophils % (Manual) 0 % (0-2) Band Neutrophils 2 % (0-8) Platelet Estimate Adequate Platelet Morphology Normal Hypochromasia 2+ Anisocytosis 1+ Prothrombin Time 14.0 SEC (9.30-11.50) H Prothromb Time International Ratio 1.4 (0.9-1.1) H Activated Partial Thromboplast Time 32 SEC (23-33) Sodium Level 139 mEQ/L (135-145) Potassium Level 4.1 mEQ/L (3.4-4.9) Chloride Level 94 mEQ/L (98-107) L Carbon Dioxide Level 38 mEQ/L (20-30) H Anion Gap 7 (5-15) Blood Urea Nitrogen 20 mg/dL (7-23) Creatinine 0.5 mg/dL (0.7-1.2) L Estimat Glomerular Filtration Rate > 60 mL/min (>60) Glucose Level 139 mg/dL (74-106) H Calcium Level 9.2 mg/dL (8.6-10.2) Phosphorus Level 2.6 mg/dL (2.5-4.8) Magnesium Level 2.1 mg/dL (1.7-2.5) Total Bilirubin 0.4 mg/dL (0.0-1.2) Aspartate Amino Transf (AST/SGOT) 28 U/L (5-40) Alanine Aminotransferase (ALT/SGPT) 46 U/L (3-41) H Alkaline Phosphatase 119 U/L (40-129) Total Protein 6.1 g/dL (6.6-8.7) L Albumin 2.8 g/dL (3.5-5.2) L Globulin 3.3 g/dL Albumin/Globulin Ratio 0.8 (1.0-2.7) L Hepatitis A IgM Antibody Pending Hepatitis B Surface Antigen Pending Hepatitis B Core IgM Antibody Pending Hepatitis C Antibody Pending Current Medications Medications (Trade) Dose Ordered Sig/Shraddha Route PRN Reason Start Time Stop Time Status Last Admin Dose Admin Acetaminophen (Tylenol) 650 mg Q4H PRN ORAL fever>100.5 09/20/16 18:30 10/20/16 18:29 10/02/16 06:20 Albuterol/ Ipratropium (DuoNeb 0.5-3(2.5)mg/3ml) 3 ml Q4HR PRN HHN Shortness of Breath 09/27/16 22:00 10/02/16 21:59 09/27/16 21:28 Dextrose (D5W 1000ml) 1,000 ml @ 50 mls/hr Q20H IV 09/27/16 11:30 10/27/16 11:29 10/02/16 06:15 Dextrose (Dextrose 50%) STAT PRN IV Hypoglycemia 09/21/16 16:45 10/21/16 16:44 Insulin Aspart (NovoLOG) start when feeding started Q6HR SUBQ 09/21/16 18:00 10/21/16 17:59 10/02/16 06:17 Lorazepam 1 mg 1 mg Q4H PRN IV For Anxiety 09/30/16 15:30 10/07/16 15:29 10/02/16 02:14 Metronidazole (Flagyl) 100 ml @ 100 mls/hr Q8HR IVPB 10/02/16 12:00 10/09/16 11:59 Ondansetron HCl (Zofran) 4 mg Q6H PRN IVP Nausea & Vomiting 09/20/16 18:30 10/20/16 18:29 10/01/16 18:04 Pantoprazole 40 mg 40 mg DAILY IVP 09/25/16 09:00 10/25/16 08:59 10/02/16 08:56 Phytonadione/ Dextrose (Vitamin K/D5W) 56 ml @ 112 mls/hr ONCE ONCE IVPB 10/02/16 12:00 10/02/16 12:29 Polyethylene Glycol (Miralax) 17 gm DAILYPRN PRN ORAL Constipation 09/20/16 18:30 10/20/16 18:29 Tobramycin Sulfate (Nebcin) 300 mg Q12HR@10,22 INH 09/30/16 10:00 10/07/16 09:59 10/02/16 07:00 Vancomycin HCl 125 mg 125 mg FOUR TIMES A DAY ORAL 10/02/16 12:00 10/09/16 11:59 KIMBERLEE HINKLE M.D. Oct 02, 2016 11:47
[2016-10-02] MEDS ORDERED: Phytonadione 10 MG in D5W 55 ML IVPB ONE (12:00)
--- NOTE | 2016-10-02 12:00 | Diagnostic Imaging Report ---
Indication: DYSPNEA Technique: One view of the chest Comparison: 10/01/2016 Findings: Stable satisfactory position of endotracheal tube. Improved, since abdomen radiograph of the previous day, position of nasogastric tube, tip now projecting beyond the image. Lungs and pleural spaces remain clear. Lungs remain hyperinflated. Impression: Hyperinflation, as in COPD, unchanged No acute pulmonary process Tube and line positions as noted
--- NOTE | 2016-10-02 12:43 | Anethesia Preoperative Eval ---
Anesthesia Pre-op PMH/ROS General Date of Evaluation: Oct 02, 2016 Anesthesiologist: Angel ASA Score: ASA 4 Mallampati Score Class I : Soft palate, uvula, fauces, pillars visible Class II: Soft palate, uvula, fauces visible Class III: Soft palate, base of uvula visible Class IV: Only hard plate visible Mallampati Classification: Class II Surgeon: Iqra Diagnosis: Respiratory failure Surgical Procedure: Trachesotomy Anesthesia History: none Social History: current smoker Family History: no anesthesia problems Allergies: Coded Allergies: No Known Allergies (Unverified , 06/17/16) Medications: see eMAR Past Medical History Cardiovascular: Reports: HTN, other - CHF, Denies: CAD, AR, arrhythmia, valve dz Pulmonary: Reports: COPD, Denies: HARSH, asthma, other Gastrointestinal/Genitourinary: Reports: GERD, other - esophagitis, Denies: CRI, ESRD Neurologic/Psychiatric: Reports: other - encephalopathy, Denies: CVA, TIA, dementia, depression/anxiety Endocrine: Reports: DM, Denies: hypothyroidism, other, steroids HEENT: Denies: CHILKAT (L), CHILKAT (R), cataract (L), cataract (R), glaucoma, other Hematology/Immune: Reports: DVT - RLE, anemia - chronic, Denies: bleeding disorder, other Musculoskeletal/Integumentary: Denies: DDD, DJD, OA, RA, edema, other PSxH Narrative: Unable to assess Anesthesia Pre-op Phys. Exam Physician Exam Last Vital Signs Date Time Temp Pulse Resp B/P Pulse Ox O2 Delivery O2 Flow Rate FiO2 10/02/16 12:00 115 10/02/16 12:00 40 10/02/16 12:00 99.3 16 95/64 99 Mechanical Ventilator Constitutional: NAD Cardiovascular: other - tachy Respiratory: other - dimished breath sounds bilaterally Airway Exam Mallampati Score: Class II Anesthesia Pre-op A/P Labs Hematology Test 10/02/16 04:25 White Blood Count 44.2 K/UL (4.8-10.8) *H Red Blood Count 3.35 M/UL (4.70-6.10) L Hemoglobin 9.4 G/DL (14.2-18.0) L Hematocrit 30.4 % (42.0-52.0) L Mean Corpuscular Volume 91 FL (80-99) Mean Corpuscular Hemoglobin 28.2 PG (27.0-31.0) Mean Corpuscular Hemoglobin Concent 31.1 G/DL (32.0-36.0) L Red Cell Distribution Width 15.9 % (11.6-14.8) H Platelet Count 318 K/UL (150-450) Mean Platelet Volume 7.2 FL (6.5-10.1) Neutrophils (%) (Auto) % (45.0-75.0) Lymphocytes (%) (Auto) % (20.0-45.0) Monocytes (%) (Auto) % (1.0-10.0) Eosinophils (%) (Auto) % (0.0-3.0) Basophils (%) (Auto) % (0.0-2.0) Differential Total Cells Counted 100 Neutrophils % (Manual) 92 % (45-75) H Lymphocytes % (Manual) 1 % (20-45) L Monocytes % (Manual) 5 % (1-10) Eosinophils % (Manual) 0 % (0-3) Basophils % (Manual) 0 % (0-2) Band Neutrophils 2 % (0-8) Platelet Estimate Adequate Platelet Morphology Normal Hypochromasia 2+ Anisocytosis 1+ Coagulation Test 10/02/16 04:25 Prothrombin Time 14.0 SEC (9.30-11.50) H Prothromb Time International Ratio 1.4 (0.9-1.1) H Activated Partial Thromboplast Time 32 SEC (23-33) Chemistry Test 10/02/16 04:25 Sodium Level 139 mEQ/L (135-145) Potassium Level 4.1 mEQ/L (3.4-4.9) Chloride Level 94 mEQ/L (98-107) L Carbon Dioxide Level 38 mEQ/L (20-30) H Anion Gap 7 (5-15) Blood Urea Nitrogen 20 mg/dL (7-23) Creatinine 0.5 mg/dL (0.7-1.2) L Estimat Glomerular Filtration Rate > 60 mL/min (>60) Glucose Level 139 mg/dL (74-106) H Calcium Level 9.2 mg/dL (8.6-10.2) Phosphorus Level 2.6 mg/dL (2.5-4.8) Magnesium Level 2.1 mg/dL (1.7-2.5) Total Bilirubin 0.4 mg/dL (0.0-1.2) Aspartate Amino Transf (AST/SGOT) 28 U/L (5-40) Alanine Aminotransferase (ALT/SGPT) 46 U/L (3-41) H Alkaline Phosphatase 119 U/L (40-129) Total Protein 6.1 g/dL (6.6-8.7) L Albumin 2.8 g/dL (3.5-5.2) L Globulin 3.3 g/dL Albumin/Globulin Ratio 0.8 (1.0-2.7) L Studies Pre-op Studies: EKG - ST Risk Assessment & Plan Assessment: ASA IV Plan: GA Status Change Before Surgery: No Pre-Antibiotics Drug: ALIN CALABRESE M.D. Oct 02, 2016 12:43
[2016-10-02] MEDS: Vancomycin oral 125mg/2.5ml ORAL SCH ×3 (12:53→20:35)
[2016-10-02] MEDS: metroNIDAZOLE 500mg 100 ML IVPB SCH ×2 (12:54→22:05)
[2016-10-02] MEDS ORDERED: Tubing IV Secondary IV ONE ×2 (22:24→22:37)
[2016-10-02] MEDS ORDERED: NS 550ML IV ONE (22:24)
[2016-10-02] MEDS ORDERED: NS 275ml ONE (22:24)
[2016-10-03] VITALS (24 sets, daily range): BP systolic 80–129; BP diastolic 43–91
[2016-10-03 04:40] LABS: MEAN CORPUSCULAR HEMOGLOBIN 28.8 PG (27.0-31.0); MEAN CORPUSCULAR HGB CONC 31.7 G/DL (32.0-36.0); MEAN CORPUSCULAR VOLUME 91 FL (80-99); MEAN PLATELET VOLUME 7.3 FL (6.5-10.1); PLATELET COUNT 232 K/UL (150-450); RED CELL DISTRIBUTION WIDTH 14.9 % (11.6-14.8)
[2016-10-03 04:51] LABS: INR 1.3 (0.9-1.1); PROTHROMBIN TIME 13.3 SEC (9.30-11.50)
[2016-10-03 05:13] LABS: ALANINE AMINOTRANSFERASE 43 U/L (3-41); ALBUMIN/GLOBULIN RATIO 0.6 (1.0-2.7); ANION GAP 8 (5-15); ASPARTATE AMINO TRANSFERASE 28 U/L (5-40); CALCIUM 9.2 mg/dL (8.6-10.2); CARBON DIOXIDE 37 mEQ/L (20-30); CHLORIDE 93 mEQ/L (98-107); CREATININE 0.6 mg/dL (0.7-1.2); GLOMERULAR FILTRATION RATE > 60 mL/min (>60); HEMOLYSIS 12; POTASSIUM 4.7 mEQ/L (3.4-4.9); SODIUM 138 mEQ/L (135-145); TOTAL PROTEIN 6.1 g/dL (6.6-8.7)
[2016-10-03] MEDS: metroNIDAZOLE 500mg 100 ML IVPB SCH ×3 (05:29→21:02)
[2016-10-03] MEDS: NovoLOG Insulin Flexpen SUBQ SCH ×4 (05:34→17:33)
[2016-10-03 05:37] LABS: WHITE BLOOD COUNT 29.9 K/UL (4.8-10.8)
[2016-10-03] MEDS ORDERED: Lidocaine 1% 10mg/ml/Epi 0.005mg/ml 30ml vial INJ ONE (07:15)
[2016-10-03 07:23] LABS: ANISOCYTOSIS 1+; BAND NEUTROPHILS % (MANUAL) 4 % (0-8); BASOPHILS % (MANUAL) 0 % (0-2); EOSINOPHILS % (MANUAL) 0 % (0-3); HYPOCHROMASIA 3+; LYMPHOCYTES % (MANUAL) 3 % (20-45); NEUTROPHILS % (MANUAL) 91 % (45-75); PLATELET ESTIMATE ADEQUATE; TOTAL CELLS COUNTED 100
[2016-10-03 07:24] LABS: PLATELET MORPHOLOGY NORMAL
--- NOTE | 2016-10-03 07:29 | Immediate Post-Op Evaluation ---
Immediate Post-Op Evalulation Immediate Post-Op Evalulation Procedure: Tracheostomy Date of Evaluation: Oct 03, 2016 Time of Evaluation: 10:14 IV Fluids: 200 Blood Products: 0 Estimated Blood Loss: 5 Urinary Output: 0 Blood Pressure Systolic: 125 Blood Pressure Diastolic: 91 Pulse Rate: 107 Respiratory Rate: 14 O2 Sat by Pulse Oximetry: 99 Temperature (Fahrenheit): 97.4 Pain Score (1-10): 0 Nausea: No Vomiting: No Patient Status: no response, ventilated, none Hydration Status: adequate Drug: Ancef 1g Given Within 1 Hr of Incision: Yes Time Given: 09:20 ALIN LOVELL M.D. Oct 03, 2016 07:29
[2016-10-03] MEDS: Vancomycin oral 125mg/2.5ml ORAL SCH ×4 (07:41→21:02)
[2016-10-03] MEDS: Pantoprazole Inj IVP SCH (07:42)
--- NOTE | 2016-10-03 08:41 | Infectious Diseases Prog Note ---
Assessment/Plan Assessment/Plan ASSESSMENT: 66 y/o male with: // COPD exacerbation - delayed SCx 4+ PSA - CXR 09/27: Lungs are hyperinflated. No new infiltrates - negative: influenza // Leukocytosis - improved ( on steroids ) // Diarrhea x 1 C Diff : P // afebrile // Acute VDRF - intubated 09/20, may need trach // Severe pulmonary HTN / grade I diastolic dysfunction / mod TR // Pulmonary nodules // Chronic RLE DVT // Tobacco abuse // NH resident // Negative MRSA, VRE screens // NKDA // Full Code PLAN: - on Jairon nebs d# 4 / 7 for secretions, PSA. on Flagyl and oral Vanco d# 2 ( 09/24 SP amikacin, invanz d# 5 / 5 ) ( 09/21 SP IV vancomycin d# 2 ) - taper steroids per pulm - monitor CBC, temperatures - monitor BMP - monitor CXR - vent support, wean as tolerated. - trach today - C Diff : P Subjective Constitutional: Denies: anorexia, chills, drenching sweats, fatigue, fever, no symptoms, other Allergies: Coded Allergies: No Known Allergies (Unverified , 06/17/16) Objective Vital Signs Last 24 Hour Vital Signs Date Time Temp Pulse Resp B/P Pulse Ox O2 Delivery O2 Flow Rate FiO2 10/03/16 07:13 115 16 40 10/03/16 06:00 113 21 110/64 100 Mechanical Ventilator 40 10/03/16 05:00 111 16 108/55 100 Mechanical Ventilator 40 10/03/16 04:57 109 16 40 10/03/16 04:00 98.4 110 16 122/85 100 Mechanical Ventilator 40 10/03/16 04:00 110 10/03/16 04:00 40 10/03/16 03:25 115 16 40 10/03/16 03:00 107 16 106/52 100 Mechanical Ventilator 40 10/03/16 02:00 106 16 88/54 100 Mechanical Ventilator 40 10/03/16 01:19 102 16 40 10/03/16 01:00 112 16 120/91 100 Mechanical Ventilator 40 10/03/16 00:00 107 10/03/16 00:00 40 10/03/16 00:00 97.7 107 16 98/60 100 Mechanical Ventilator 40 10/02/16 23:11 110 16 40 10/02/16 23:00 112 16 102/53 100 Mechanical Ventilator 40 10/02/16 22:00 108 16 87/57 100 Mechanical Ventilator 40 10/02/16 21:29 101 16 100 Mechanical Ventilator 40 10/02/16 21:25 106 16 40 10/02/16 21:23 106 16 100 Mechanical Ventilator 40 10/02/16 21:00 107 16 121/76 100 Mechanical Ventilator 40 10/02/16 20:00 111 10/02/16 20:00 99.1 116 16 120/74 100 Mechanical Ventilator 40 10/02/16 20:00 40 10/02/16 19:00 114 16 40 10/02/16 19:00 115 18 103/70 100 Mechanical Ventilator 40 10/02/16 18:00 99.0 112 16 90/71 100 Mechanical Ventilator 40 10/02/16 17:00 114 16 90/65 100 Mechanical Ventilator 40 10/02/16 16:55 114 16 40 10/02/16 16:00 116 10/02/16 16:00 98.9 114 16 111/74 100 Mechanical Ventilator 40 10/02/16 16:00 40 10/02/16 15:19 99.0 10/02/16 15:00 99.0 115 16 89/54 100 Mechanical Ventilator 40 10/02/16 14:57 117 16 40 10/02/16 14:00 119 16 103/81 100 Mechanical Ventilator 40 10/02/16 13:25 122 16 40 10/02/16 13:00 122 18 84/58 100 Mechanical Ventilator 40 10/02/16 12:00 115 10/02/16 12:00 40 10/02/16 12:00 99.3 126 16 95/64 99 Mechanical Ventilator 40 10/02/16 11:00 123 16 98/74 98 Mechanical Ventilator 40 10/02/16 11:00 123 16 40 10/02/16 10:00 99.3 123 16 86/67 99 Mechanical Ventilator 40 10/02/16 09:07 128 16 40 10/02/16 09:00 99.7 128 16 97/73 100 Mechanical Ventilator 40 Height (Feet): 6 Height (Inches): 2.00 Weight (Pounds): 127 HEENT: atraumatic Respiratory/Chest: normal breath sounds Cardiovascular: regular rhythm Abdomen: soft, non tender Laboratory Tests Test 10/03/16 03:50 White Blood Count 29.9 K/UL (4.8-10.8) *H Red Blood Count 2.90 M/UL (4.70-6.10) L Hemoglobin 8.4 G/DL (14.2-18.0) L Hematocrit 26.3 % (42.0-52.0) L Mean Corpuscular Volume 91 FL (80-99) Mean Corpuscular Hemoglobin 28.8 PG (27.0-31.0) Mean Corpuscular Hemoglobin Concent 31.7 G/DL (32.0-36.0) L Red Cell Distribution Width 14.9 % (11.6-14.8) H Platelet Count 232 K/UL (150-450) Mean Platelet Volume 7.3 FL (6.5-10.1) Neutrophils (%) (Auto) % (45.0-75.0) Lymphocytes (%) (Auto) % (20.0-45.0) Monocytes (%) (Auto) % (1.0-10.0) Eosinophils (%) (Auto) % (0.0-3.0) Basophils (%) (Auto) % (0.0-2.0) Differential Total Cells Counted 100 Neutrophils % (Manual) 91 % (45-75) H Lymphocytes % (Manual) 3 % (20-45) L Monocytes % (Manual) 2 % (1-10) Eosinophils % (Manual) 0 % (0-3) Basophils % (Manual) 0 % (0-2) Band Neutrophils 4 % (0-8) Platelet Estimate Adequate Platelet Morphology Normal Hypochromasia 3+ Anisocytosis 1+ Prothrombin Time 13.3 SEC (9.30-11.50) H Prothromb Time International Ratio 1.3 (0.9-1.1) H Sodium Level 138 mEQ/L (135-145) Potassium Level 4.7 mEQ/L (3.4-4.9) Chloride Level 93 mEQ/L (98-107) L Carbon Dioxide Level 37 mEQ/L (20-30) H Anion Gap 8 (5-15) Blood Urea Nitrogen 22 mg/dL (7-23) Creatinine 0.6 mg/dL (0.7-1.2) L Estimat Glomerular Filtration Rate > 60 mL/min (>60) Glucose Level 104 mg/dL (74-106) Calcium Level 9.2 mg/dL (8.6-10.2) Total Bilirubin 0.9 mg/dL (0.0-1.2) Aspartate Amino Transf (AST/SGOT) 28 U/L (5-40) Alanine Aminotransferase (ALT/SGPT) 43 U/L (3-41) H Alkaline Phosphatase 137 U/L (40-129) H Total Protein 6.1 g/dL (6.6-8.7) L Albumin 2.4 g/dL (3.5-5.2) L Globulin 3.7 g/dL Albumin/Globulin Ratio 0.6 (1.0-2.7) L Current Medications Medications (Trade) Dose Ordered Sig/Shraddha Route PRN Reason Start Time Stop Time Status Last Admin Dose Admin Acetaminophen (Tylenol) 650 mg Q4H PRN ORAL fever>100.5 09/20/16 18:30 10/20/16 18:29 10/02/16 20:01 Dextrose (D5W 1000ml) 1,000 ml @ 50 mls/hr Q20H IV 09/27/16 11:30 10/27/16 11:29 10/03/16 04:44 Dextrose (Dextrose 50%) STAT PRN IV Hypoglycemia 09/21/16 16:45 10/21/16 16:44 Insulin Aspart (NovoLOG) start when feeding started Q6HR SUBQ 09/21/16 18:00 10/21/16 17:59 10/02/16 17:44 Lorazepam 1 mg 1 mg Q4H PRN IV For Anxiety 09/30/16 15:30 10/07/16 15:29 10/02/16 02:14 Metronidazole (Flagyl) 100 ml @ 100 mls/hr Q8HR IVPB 10/02/16 12:00 10/09/16 11:59 10/03/16 05:29 Ondansetron HCl (Zofran) 4 mg Q6H PRN IVP Nausea & Vomiting 09/20/16 18:30 10/20/16 18:29 10/03/16 07:42 Pantoprazole 40 mg 40 mg DAILY IVP 09/25/16 09:00 10/25/16 08:59 10/03/16 07:42 Polyethylene Glycol (Miralax) 17 gm DAILYPRN PRN ORAL Constipation 09/20/16 18:30 10/20/16 18:29 Tobramycin Sulfate (Nebcin) 300 mg Q12HR@10,22 INH 09/30/16 10:00 10/07/16 09:59 10/02/16 21:23 Vancomycin HCl (Vancomycin) 125 mg FOUR TIMES A DAY ORAL 10/02/16 12:00 10/09/16 11:59 10/02/16 20:35 KIMBERLEE HINKLE M.D. Oct 03, 2016 08:41
[2016-10-03] MEDS: Tobramycin for inhalation INH SCH ×2 (08:48→22:48)
[2016-10-03] MEDS ORDERED: Midazolam 2mg/2ml Inj ONE (09:00)
[2016-10-03] MEDS ORDERED: Lidocaine 1% MPF 10mg/ml 5ml ONE (09:00)
[2016-10-03] MEDS ORDERED: fentaNYL 100 mcg/2 mL IV ONE (09:00)
[2016-10-03] MEDS ORDERED: Propofol 10mg/ml 20ml IV ONE (09:00)
[2016-10-03] MEDS ORDERED: Zemuron 50mg/5ml Inj IV ONE (09:00)
--- NOTE | 2016-10-03 09:13 | Pre-Procedure Note/Attestation ---
Pre-Procedure Note/Attestation Complete Prior to Procedure Planned Procedure: not applicable Procedure Narrative: Jone Indications for Procedure Pre-Operative Diagnosis: Resp dependent without anticipation of extubation Attestation I attest that I discussed the nature of the procedure; its benefits; risks and complications; and alternatives (and the risks and benefits of such alternatives ), prior to the procedure, with the patient (or the patient's legal merchandising representative). I attest that, if there was a reasonable possibility of needing a blood transfusion, the patient (or the patient's legal merchandising representative) was given the [facility] standardized written summary, pursuant to the [place] Blood Safety Act ([place] Health and Safety Code # 1645, as amended). I attest that I re-evaluated the patient just prior to the surgery and that there has been no change in the patient's H&P. INR this AM 1.[address] Andrade and I have signed the chart in notes for bel to contact family members during this pt. hospital stay. EFREN STAPLETON Oct 03, 2016 09:13
--- NOTE | 2016-10-03 10:03 | Brief Operative Note ---
Immediate Post Operative Note Operative Note Chief Complaint: Vent dependent Pre-op Diagnosis: Resp dependent without anticipation of extubation Procedure: Trach Post-op Diagnosis: same as pre-op Surgeon: Marla Stapleton House Nurse: none Additional Surgeons: none Anesthesiologist: Alissa Anesthesia: general Specimen: none Complications: none Condition: stable Estimated Blood Loss: minimal Drains: none Implant(s) used?: Yes - Racquel #8 non fenestrated with cuff EFREN STAPLETON Oct 03, 2016 10:03
--- NOTE | 2016-10-03 10:46 | Pulmonolgy Critical Care Note ---
Critical Care - Asmt/Plan Problems: (1) Respiratory failure (2) COPD exacerbation (3) Pneumonia (4) Altered mental status Respiratory: monitor respiratory rate, adjust FIO2, CXR Cardiac: continue to monitor HR/BP Renal: F/U I&O, keep IV fluid, check electrolytes Infectious Disease: check cultures, continue antibiotics Gastrointestinal: continue feedings/current rate Endocrine: monitor blood sugar Hematologic: monitor H/H, transfuse if hgb<8.5 Neurologic: PRN Ativan, keep patient comfortable Affect: PRN ativan Prophylaxis: Protonix Notes Reviewed: parts classifier, cardio, renal 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, consultants, case management assistantmanager star - Objective Last 24 Hour Vital Signs Date Time Temp Pulse Resp B/P Pulse Ox O2 Delivery O2 Flow Rate FiO2 10/03/16 10:18 107 14 99 10/03/16 10:00 117 18 110/69 100 Mechanical Ventilator 40 10/03/16 09:00 130 18 104/71 100 Mechanical Ventilator 40 10/03/16 08:59 130 16 100 Mechanical Ventilator 40 10/03/16 08:51 130 16 40 10/03/16 08:48 130 16 100 Mechanical Ventilator 40 10/03/16 08:00 103 10/03/16 08:00 98.5 118 24 110/68 100 Mechanical Ventilator 40 10/03/16 08:00 40 10/03/16 07:13 115 16 40 10/03/16 07:00 115 21 109/56 100 Mechanical Ventilator 40 10/03/16 06:00 113 21 110/64 100 Mechanical Ventilator 40 10/03/16 05:00 111 16 108/55 100 Mechanical Ventilator 40 10/03/16 04:57 109 16 40 10/03/16 04:00 98.4 110 16 122/85 100 Mechanical Ventilator 40 10/03/16 04:00 110 10/03/16 04:00 40 10/03/16 03:25 115 16 40 10/03/16 03:00 107 16 106/52 100 Mechanical Ventilator 40 10/03/16 02:00 106 16 88/54 100 Mechanical Ventilator 40 10/03/16 01:19 102 16 40 10/03/16 01:00 112 16 120/91 100 Mechanical Ventilator 40 10/03/16 00:00 107 10/03/16 00:00 40 10/03/16 00:00 97.7 107 16 98/60 100 Mechanical Ventilator 40 10/02/16 23:11 110 16 40 10/02/16 23:00 112 16 102/53 100 Mechanical Ventilator 40 10/02/16 22:00 108 16 87/57 100 Mechanical Ventilator 40 10/02/16 21:29 101 16 100 Mechanical Ventilator 40 10/02/16 21:25 106 16 40 10/02/16 21:23 106 16 100 Mechanical Ventilator 40 10/02/16 21:00 107 16 121/76 100 Mechanical Ventilator 40 10/02/16 20:00 111 10/02/16 20:00 99.1 116 16 120/74 100 Mechanical Ventilator 40 10/02/16 20:00 40 10/02/16 19:00 114 16 40 10/02/16 19:00 115 18 103/70 100 Mechanical Ventilator 40 10/02/16 18:00 99.0 112 16 90/71 100 Mechanical Ventilator 40 10/02/16 17:00 114 16 90/65 100 Mechanical Ventilator 40 10/02/16 16:55 114 16 40 10/02/16 16:00 116 10/02/16 16:00 98.9 114 16 111/74 100 Mechanical Ventilator 40 10/02/16 16:00 40 10/02/16 15:19 99.0 10/02/16 15:00 99.0 115 16 89/54 100 Mechanical Ventilator 40 10/02/16 14:57 117 16 40 10/02/16 14:00 119 16 103/81 100 Mechanical Ventilator 40 10/02/16 13:25 122 16 40 10/02/16 13:00 122 18 84/58 100 Mechanical Ventilator 40 10/02/16 12:00 115 10/02/16 12:00 40 10/02/16 12:00 99.3 126 16 95/64 99 Mechanical Ventilator 40 10/02/16 11:00 123 16 98/74 98 Mechanical Ventilator 40 10/02/16 11:00 123 16 40 Status: awake Condition: critical, grave HEENT: atraumatic Lungs: clear Heart: HR/BP stable, HR/BP unstable Abdomen: soft, non-tender Extremities: no C/C/E, edema Decubiti: location Accucheck: 113 Critical Care - Subjective ROS Limited/Unobtainable: Yes ICU Day: 13 Intubation Day: 13 Interval Events: trach done, tolerating well Condition: critical EKG Rhythm: Sinus Rhythm FI02: 40 Vent Support Breath Rate: 16 Vent Support Mode: AC Vent Tidal Volume: 600 Sputum Amount: Moderate PEEP: 5.0 PIP: 34 Tube Feeding Amount: 0 I&O: Intake and Output 10/02/16 10/03/16 19:00 07:00 Intake Total 1476 ml 1316 ml Output Total 600 ml 610 ml Balance 876 ml 706 ml Free Water 50 ml IV Total 656 ml 550 ml Tube Feeding 720 ml 180 ml Blood Product 556 ml Other 50 ml 30 ml Output Urine Total 600 ml 610 ml CXR: no changes ET-Tube: 8.0 ET Position: 24 Labs: Laboratory Tests Test 10/03/16 03:50 White Blood Count 29.9 K/UL (4.8-10.8) *H Red Blood Count 2.90 M/UL (4.70-6.10) L Hemoglobin 8.4 G/DL (14.2-18.0) L Hematocrit 26.3 % (42.0-52.0) L Mean Corpuscular Volume 91 FL (80-99) Mean Corpuscular Hemoglobin 28.8 PG (27.0-31.0) Mean Corpuscular Hemoglobin Concent 31.7 G/DL (32.0-36.0) L Red Cell Distribution Width 14.9 % (11.6-14.8) H Platelet Count 232 K/UL (150-450) Mean Platelet Volume 7.3 FL (6.5-10.1) Neutrophils (%) (Auto) % (45.0-75.0) Lymphocytes (%) (Auto) % (20.0-45.0) Monocytes (%) (Auto) % (1.0-10.0) Eosinophils (%) (Auto) % (0.0-3.0) Basophils (%) (Auto) % (0.0-2.0) Differential Total Cells Counted 100 Neutrophils % (Manual) 91 % (45-75) H Lymphocytes % (Manual) 3 % (20-45) L Monocytes % (Manual) 2 % (1-10) Eosinophils % (Manual) 0 % (0-3) Basophils % (Manual) 0 % (0-2) Band Neutrophils 4 % (0-8) Platelet Estimate Adequate Platelet Morphology Normal Hypochromasia 3+ Anisocytosis 1+ Prothrombin Time 13.3 SEC (9.30-11.50) H Prothromb Time International Ratio 1.3 (0.9-1.1) H Sodium Level 138 mEQ/L (135-145) Potassium Level 4.7 mEQ/L (3.4-4.9) Chloride Level 93 mEQ/L (98-107) L Carbon Dioxide Level 37 mEQ/L (20-30) H Anion Gap 8 (5-15) Blood Urea Nitrogen 22 mg/dL (7-23) Creatinine 0.6 mg/dL (0.7-1.2) L Estimat Glomerular Filtration Rate > 60 mL/min (>60) Glucose Level 104 mg/dL (74-106) Calcium Level 9.2 mg/dL (8.6-10.2) Total Bilirubin 0.9 mg/dL (0.0-1.2) Aspartate Amino Transf (AST/SGOT) 28 U/L (5-40) Alanine Aminotransferase (ALT/SGPT) 43 U/L (3-41) H Alkaline Phosphatase 137 U/L (40-129) H Total Protein 6.1 g/dL (6.6-8.7) L Albumin 2.4 g/dL (3.5-5.2) L Globulin 3.7 g/dL Albumin/Globulin Ratio 0.6 (1.0-2.7) L REN WRIGHT Oct 03, 2016 10:46
--- NOTE | 2016-10-03 11:01 | Diagnostic Imaging Report ---
Indication: Evaluation of tracheostomy and nasogastric tube placement Technique: One view of the chest Comparison: 10/02/2016 Findings: Interim replacement of previously demonstrated endotracheal tube with a tracheostomy. No gross pneumothorax or pneumomediastinum. There is a nasogastric tube in place, tip of which projects at the level of the junction of the middle and distal thirds of the esophagus. There is left pulmonary hilar fullness which is slightly more striking than on earlier studies. Lungs remain hyperinflated. No infiltrates Impression: Interim replacement of endotracheal tube with a tracheostomy. No radiographically evident complication Malposition of nasogastric tube, tip in the distal esophagus. ICU nurse Lilia notified of this at the time of interpretation COPD changes, stable. No new infiltrates
[2016-10-03] MEDS: LORazepam Inj 2mg/ml 1ml IV PRN (12:05)
[2016-10-03] MEDS: Morphine Sulfate 4mg/ml Inj IVP PRN (12:06)
--- NOTE | 2016-10-03 14:57 | Diagnostic Imaging Report ---
Indication: Status post nasogastric tube repositioning Technique: Supine view of the abdomen Comparison: 10/01/2016, also chest radiograph of earlier the same day Findings: Since earlier chest radiograph, interim advancement of previously malpositioned nasogastric tube, tip now projecting at the level gastric body/antrum junction, proximal port well within the gastric fundus. The visualized bowel gas pattern is unremarkable. Impression: Improved and now satisfactory position of previously malpositioned nasogastric tube
[2016-10-03] MEDS ORDERED: Tubing IV Secondary IV ONE (16:41)
[2016-10-03] MEDS ORDERED: Tubing Blood Filter IV ONE (16:42)
[2016-10-03] MEDS ORDERED: NS 275ml ONE (16:42)
--- NOTE | 2016-10-03 17:18 | Operative Note - Dictated ---
DATE OF OPERATION: 10/03/2016 SURGEON: Ravinder Escalona M.D. PIG IRON LOADER: None. ANESTHESIOLOGIST: Dr. Maxwell Anesthesia: Oral endotracheal anesthesia as well as 10 mL of 1% lidocaine 1:100,000 epinephrine. INDICATION FOR SURGERY: The patient who has been intubated on a respirator without anticipation of extubation over the next week or two. PREOPERATIVE DIAGNOSIS: The patient who has been intubated on a respirator without anticipation of extubation over the next week or two. POSTOPERATIVE DIAGNOSIS: The patient who has been intubated on a respirator without anticipation of extubation over the next week or two. FINDINGS: The patient who has been intubated on a respirator without anticipation of extubation over the next week or two. PROCEDURE: Tracheostomy and NG tube placement. TECHNIQUE: The patient was prepped and draped in the usual manner. Time-out was performed. All agreed as to the instruments required in the room as well as other supplies. He was injected with 10 mL of 1% lidocaine 1:100,000 epinephrine within two fingerbreadths in midline of the sternal notch of the neck. I then proceeded to make an incision two fingerbreadths above the sternal notch with a 15 blade. With Bovie setting of 14, this was taken down through the fat to the strap muscles. At that point, I started doing a vertical separation pulling the strap muscles to either side with an [place]. The thyroid was identified, cauterized down in the middle. I then was able to clear off the face of the trachea. I then used a trach hook to pull up the cricoid making incision between the second and third tracheal rings with a 15 blade and then a small cut in the mid anterior lateral third of the third tracheal ring bilaterally. This created an inferiorly based flap, which was tied to the inferior epithelial of the new opening with a 3-0 silk. In concert with the anesthesiologist, the endotracheal tube tip was pulled above beyond the new stoma. A #8 Shiley nonfenestrated with cuff was placed without difficulty. This then was tied in with 4-0 silks, a trach tie 2 fingerbreadths loose on the right side and a knot. Packed with iodoform gauze and then a piece of Telfa between the skin and the trach flange to protect the skin. I then replaced the NG tube that had been in the mouth through the right nostril. Chest x-ray is pending to determine placement. Sponge and needle count was correct according to all in the room. ESTIMATED BLOOD LOSS: 2 to 3 mL. COUNTS: None. DRAINS: One Shiley #8 nonfenestrated with cuff. Ravinder Escalona M.D. DR: ROBIN JOB#: [id number] CC:
--- NOTE | 2016-10-03 17:21 | Internal Med Progress Note ---
Subjective Date of Service: Oct 03, 2016 Physician Name Tadeo Verdin Attending Physician Steve Rader MD Current Medications Medications (Trade) Dose Ordered Sig/Shraddha Route PRN Reason Start Time Stop Time Status Last Admin Dose Admin Acetaminophen (Tylenol) 650 mg Q4H PRN ORAL fever>100.5 09/20/16 18:30 10/20/16 18:29 10/02/16 20:01 Dextrose (D5W 1000ml) 1,000 ml @ 50 mls/hr Q20H IV 09/27/16 11:30 10/27/16 11:29 10/03/16 04:44 Dextrose (Dextrose 50%) STAT PRN IV Hypoglycemia 09/21/16 16:45 10/21/16 16:44 Insulin Aspart (NovoLOG) start when feeding started Q6HR SUBQ 09/21/16 18:00 10/21/16 17:59 10/03/16 12:14 Lorazepam 1 mg 1 mg Q4H PRN IV For Anxiety 09/30/16 15:30 10/07/16 15:29 10/03/16 12:05 Metronidazole (Flagyl) 100 ml @ 100 mls/hr Q8HR IVPB 10/02/16 12:00 10/09/16 11:59 10/03/16 14:29 Morphine Sulfate (Morphine Sulfate) 4 mg Q4H PRN IVP Pain 4-10 10/03/16 11:45 10/10/16 11:44 10/03/16 12:06 Ondansetron HCl (Zofran) 4 mg Q6H PRN IVP Nausea & Vomiting 09/20/16 18:30 10/20/16 18:29 10/03/16 07:42 Pantoprazole 40 mg 40 mg DAILY IVP 09/25/16 09:00 10/25/16 08:59 10/03/16 07:42 Polyethylene Glycol (Miralax) 17 gm DAILYPRN PRN ORAL Constipation 09/20/16 18:30 10/20/16 18:29 Tobramycin Sulfate (Nebcin) 300 mg Q12HR@10,22 INH 09/30/16 10:00 10/07/16 09:59 10/03/16 08:48 Vancomycin HCl (Vancomycin) 125 mg FOUR TIMES A DAY ORAL 10/02/16 12:00 10/09/16 11:59 10/02/16 20:35 Allergies: Coded Allergies: No Known Allergies (Unverified , 06/17/16) ROS Limited/Unobtainable: Yes Subjective 66 YO M admitted with respiratory failure. ICU. Intubated and sedated. Cover for Stanislav Hdz-Dr Rader. Objective Last Vital Signs Date Time Temp Pulse Resp B/P Pulse Ox O2 Delivery O2 Flow Rate FiO2 10/03/16 17:00 122 16 81/48 100 Mechanical Ventilator 40 10/03/16 16:00 98.9 Laboratory Tests Test 10/03/16 03:50 White Blood Count 29.9 K/UL (4.8-10.8) *H Red Blood Count 2.90 M/UL (4.70-6.10) L Hemoglobin 8.4 G/DL (14.2-18.0) L Hematocrit 26.3 % (42.0-52.0) L Mean Corpuscular Volume 91 FL (80-99) Mean Corpuscular Hemoglobin 28.8 PG (27.0-31.0) Mean Corpuscular Hemoglobin Concent 31.7 G/DL (32.0-36.0) L Red Cell Distribution Width 14.9 % (11.6-14.8) H Platelet Count 232 K/UL (150-450) Mean Platelet Volume 7.3 FL (6.5-10.1) Neutrophils (%) (Auto) % (45.0-75.0) Lymphocytes (%) (Auto) % (20.0-45.0) Monocytes (%) (Auto) % (1.0-10.0) Eosinophils (%) (Auto) % (0.0-3.0) Basophils (%) (Auto) % (0.0-2.0) Differential Total Cells Counted 100 Neutrophils % (Manual) 91 % (45-75) H Lymphocytes % (Manual) 3 % (20-45) L Monocytes % (Manual) 2 % (1-10) Eosinophils % (Manual) 0 % (0-3) Basophils % (Manual) 0 % (0-2) Band Neutrophils 4 % (0-8) Platelet Estimate Adequate Platelet Morphology Normal Hypochromasia 3+ Anisocytosis 1+ Prothrombin Time 13.3 SEC (9.30-11.50) H Prothromb Time International Ratio 1.3 (0.9-1.1) H Sodium Level 138 mEQ/L (135-145) Potassium Level 4.7 mEQ/L (3.4-4.9) Chloride Level 93 mEQ/L (98-107) L Carbon Dioxide Level 37 mEQ/L (20-30) H Anion Gap 8 (5-15) Blood Urea Nitrogen 22 mg/dL (7-23) Creatinine 0.6 mg/dL (0.7-1.2) L Estimat Glomerular Filtration Rate > 60 mL/min (>60) Glucose Level 104 mg/dL (74-106) Calcium Level 9.2 mg/dL (8.6-10.2) Total Bilirubin 0.9 mg/dL (0.0-1.2) Aspartate Amino Transf (AST/SGOT) 28 U/L (5-40) Alanine Aminotransferase (ALT/SGPT) 43 U/L (3-41) H Alkaline Phosphatase 137 U/L (40-129) H Total Protein 6.1 g/dL (6.6-8.7) L Albumin 2.4 g/dL (3.5-5.2) L Globulin 3.7 g/dL Albumin/Globulin Ratio 0.6 (1.0-2.7) L Intake and Output 10/02/16 10/03/16 19:00 07:00 Intake Total 1476 ml 1316 ml Output Total 600 ml 610 ml Balance 876 ml 706 ml Free Water 50 ml IV Total 656 ml 550 ml Tube Feeding 720 ml 180 ml Blood Product 556 ml Other 50 ml 30 ml Output Urine Total 600 ml 610 ml Objective General Appearance: moderate distress, thin EENT: PERRL/EOMI, normal ENT inspection Neck: non-tender, normal alignment, supple Cardiovascular: normal peripheral pulses, normal rate, regular rhythm, no gallop/murmur, no JVD Respiratory/Chest: Mech Vent; respiratory distress, crackles/rales, rhonchi - bilaterally, expiratory wheezing Abdomen: non tender, soft, no organomegaly, no mass, decreased bowel sounds Extremities: normal range of motion Skin: normal pigmentation, warm/dry Assessment/Plan Problem List: (1) Lung nodule (2) DVT (deep venous thrombosis) (3) Acute respiratory failure Assessment & Plan: Cont vent per pulmonary (4) COPD exacerbation Assessment & Plan: Continue duoneb. Continue vent per pulmonary. (5) Pneumonia Assessment & Plan: D/Cantibiotics per ID-continue tobramycin nebs (6) Leukocytosis Assessment & Plan: Continue PO vanco and IV flagyl per ID. (7) Dysphagia Assessment & Plan: Await GI consult for possible PEG Status: not improved TADEO VERDIN Oct 03, 2016 17:21
--- NOTE | 2016-10-03 17:43 | General Progress Note ---
Assessment/Plan Assessment/Plan GI Consult Dictated Will place PEG tomorrow Need physician consent since no DPOA Thank you Uriel May MD Subjective Allergies: Coded Allergies: No Known Allergies (Unverified , 06/17/16) Objective Last 24 Hour Vital Signs Date Time Temp Pulse Resp B/P Pulse Ox O2 Delivery O2 Flow Rate FiO2 10/03/16 17:29 119 16 40 10/03/16 17:00 122 16 81/48 100 Mechanical Ventilator 40 10/03/16 16:00 40 10/03/16 16:00 125 10/03/16 16:00 98.9 124 16 88/71 100 Mechanical Ventilator 40 10/03/16 15:25 127 16 40 10/03/16 15:00 128 18 80/46 100 Mechanical Ventilator 40 10/03/16 14:00 127 18 129/84 100 Mechanical Ventilator 40 10/03/16 13:02 128 15 40 10/03/16 13:00 128 18 104/56 100 Mechanical Ventilator 40 10/03/16 12:00 135 10/03/16 12:00 98.5 136 15 105/58 99 Mechanical Ventilator 40 10/03/16 12:00 40 10/03/16 11:18 136 15 40 10/03/16 11:00 135 18 99/45 100 Mechanical Ventilator 40 10/03/16 10:18 107 14 99 10/03/16 10:00 117 18 110/69 100 Mechanical Ventilator 40 10/03/16 09:00 130 18 104/71 100 Mechanical Ventilator 40 10/03/16 08:59 130 16 100 Mechanical Ventilator 40 10/03/16 08:51 130 16 40 10/03/16 08:48 130 16 100 Mechanical Ventilator 40 10/03/16 08:00 103 10/03/16 08:00 98.5 118 24 110/68 100 Mechanical Ventilator 40 10/03/16 08:00 40 10/03/16 07:13 115 16 40 10/03/16 07:00 115 21 109/56 100 Mechanical Ventilator 40 10/03/16 06:00 113 21 110/64 100 Mechanical Ventilator 40 10/03/16 05:00 111 16 108/55 100 Mechanical Ventilator 40 10/03/16 04:57 109 16 40 10/03/16 04:00 98.4 110 16 122/85 100 Mechanical Ventilator 40 10/03/16 04:00 110 10/03/16 04:00 40 10/03/16 03:25 115 16 40 10/03/16 03:00 107 16 106/52 100 Mechanical Ventilator 40 10/03/16 02:00 106 16 88/54 100 Mechanical Ventilator 40 10/03/16 01:19 102 16 40 10/03/16 01:00 112 16 120/91 100 Mechanical Ventilator 40 10/03/16 00:00 107 10/03/16 00:00 40 10/03/16 00:00 97.7 107 16 98/60 100 Mechanical Ventilator 40 10/02/16 23:11 110 16 40 10/02/16 23:00 112 16 102/53 100 Mechanical Ventilator 40 10/02/16 22:00 108 16 87/57 100 Mechanical Ventilator 40 10/02/16 21:29 101 16 100 Mechanical Ventilator 40 10/02/16 21:25 106 16 40 10/02/16 21:23 106 16 100 Mechanical Ventilator 40 10/02/16 21:00 107 16 121/76 100 Mechanical Ventilator 40 10/02/16 20:00 111 10/02/16 20:00 99.1 116 16 120/74 100 Mechanical Ventilator 40 10/02/16 20:00 40 10/02/16 19:00 114 16 40 10/02/16 19:00 115 18 103/70 100 Mechanical Ventilator 40 10/02/16 18:00 99.0 112 16 90/71 100 Mechanical Ventilator 40 Intake and Output 10/02/16 10/03/16 19:00 07:00 Intake Total 1476 ml 1316 ml Output Total 600 ml 610 ml Balance 876 ml 706 ml Free Water 50 ml IV Total 656 ml 550 ml Tube Feeding 720 ml 180 ml Blood Product 556 ml Other 50 ml 30 ml Output Urine Total 600 ml 610 ml Laboratory Tests 10/03/16 03:50: White Blood Count 29.9*H, Red Blood Count 2.90L, Hemoglobin 8.4L, Hematocrit 26.3L, Mean Corpuscular Volume 91, Mean Corpuscular Hemoglobin 28.8, Mean Corpuscular Hemoglobin Concent 31.7L, Red Cell Distribution Width 14.9H, Platelet Count 232, Mean Platelet Volume 7.3, Neutrophils (%) (Auto) , Lymphocytes (%) (Auto) , Monocytes (%) (Auto) , Eosinophils (%) (Auto) , Basophils (%) (Auto) , Differential Total Cells Counted 100, Neutrophils % ( Manual) 91H, Lymphocytes % (Manual) 3L, Monocytes % (Manual) 2, Eosinophils % ( Manual) 0, Basophils % (Manual) 0, Band Neutrophils 4, Platelet Estimate Adequate, Platelet Morphology Normal, Hypochromasia 3+, Anisocytosis 1+, Prothrombin Time 13.3H, Prothromb Time International Ratio 1.3H, Sodium Level 138, Potassium Level 4.7, Chloride Level 93L, Carbon Dioxide Level 37H, Anion Gap 8, Blood Urea Nitrogen 22, Creatinine 0.6L, Estimat Glomerular Filtration Rate > 60, Glucose Level 104, Calcium Level 9.2, Total Bilirubin 0.9, Aspartate Amino Transf (AST/SGOT) 28, Alanine Aminotransferase (ALT/SGPT) 43H, Alkaline Phosphatase 137H, Total Protein 6.1L, Albumin 2.4L, Globulin 3.7, Albumin/ Globulin Ratio 0.6L Height (Feet): 6 Height (Inches): 2.00 Weight (Pounds): 127 URIEL MAY Oct 03, 2016 17:43
--- NOTE | 2016-10-03 19:38 | Consultation ---
DATE OF CONSULTATION: 10/03/2016 GASTROENTEROLOGY CONSULTATION CONSULTING PHYSICIAN: Uriel May M.D. CHIEF COMPLAINT: I was asked to see this patient for gastrostomy tube placement. HISTORY OF PRESENT ILLNESS: The patient is an unfortunate 66-year-old male with a history of chronic obstructive pulmonary disease who came into the hospital with shortness of breath. He subsequently had respiratory failure and had to be intubated. He failed weaning trials; therefore, tracheostomy was placed today. This consultation was therefore made to convert the nasogastric tube to gastrostomy catheter. The patient himself is unable to provide much history or information, but the family at the bedside including the and information is gathered from then. PAST MEDICAL HISTORY: History of chronic obstructive pulmonary disease, history of respiratory failure, status post intubation in June 2016 and again now, and finally a tracheostomy catheter placement. ALLERGIES: No known drug allergies. FAMILY HISTORY: Noncontributory. SOCIAL HISTORY: The patient is a [facility] resident, and his is at his bedside. He has had past history of smoking, but he quit in late 2015. He does not drink. REVIEW OF SYSTEMS: Otherwise negative. MEDICATIONS: See chart list for details. PHYSICAL EXAMINATION: GENERAL: Debilitated man, seen in the ICU with family at bedside. HEENT: Normocephalic and atraumatic. Sclerae anicteric. NECK: Tracheostomy catheter and chest revealed coarse breath sounds. CARDIOVASCULAR: Revealed a regular rate. ABDOMEN: Soft, flat. Good bowel sounds. EXTREMITIES: Revealed no edema. LABORATORY DATA: Noted. ASSESSMENT: This patient has chronic obstructive pulmonary disease and he is on a ventilator with a new tracheostomy catheter. A gastrostomy catheter may be necessary to maintain a safe and long-term enteral access, and the family understands the indications, risks, alternatives, and possible complications and they agreed to proceed. He does have an elevated white count, but he is also on antibiotics. His stool has been sent for Clostridium difficile, and it is pending. He is being followed by Infectious Disease Services. The patient also has some mildly elevated liver tests. His hepatitis serologies are sent and pending. I will also supplement with imaging study to rule out any gallbladder disorder. RECOMMENDATIONS: 1. Observe overnight. 2. Check abdominal ultrasound. 3. Gastrostomy tube placement tomorrow. 4. Antibiotics per Infectious Disease information technology consultant. Thank you for asking me to participate in the care of this patient. Uriel May M.D. DR: PERI JOB#: [id number] CC:
[2016-10-04] VITALS (24 sets, daily range): BP systolic 78–131; BP diastolic 50–93
[2016-10-04] MEDS: NovoLOG Insulin Flexpen SUBQ SCH ×5 (00:23→23:54)
[2016-10-04 04:49] LABS: MEAN CORPUSCULAR HEMOGLOBIN 27.7 PG (27.0-31.0); MEAN CORPUSCULAR HGB CONC 30.5 G/DL (32.0-36.0); MEAN CORPUSCULAR VOLUME 91 FL (80-99); MEAN PLATELET VOLUME 7.4 FL (6.5-10.1); PLATELET COUNT 338 K/UL (150-450); RED BLOOD COUNT 2.96 M/UL (4.70-6.10); RED CELL DISTRIBUTION WIDTH 15.3 % (11.6-14.8)
[2016-10-04 04:58] LABS: WHITE BLOOD COUNT 32.7 K/UL (4.8-10.8)
[2016-10-04 05:14] LABS: ALANINE AMINOTRANSFERASE 47 U/L (3-41); ALBUMIN/GLOBULIN RATIO 0.6 (1.0-2.7); ANION GAP 8 (5-15); ASPARTATE AMINO TRANSFERASE 28 U/L (5-40); CALCIUM 8.8 mg/dL (8.6-10.2); CARBON DIOXIDE 37 mEQ/L (20-30); CHLORIDE 90 mEQ/L (98-107); CREATININE 0.7 mg/dL (0.7-1.2); GLOMERULAR FILTRATION RATE > 60 mL/min (>60); HEMOLYSIS 0; MAGNESIUM 2.2 mg/dL (1.7-2.5); PHOSPHORUS 3.7 mg/dL (2.5-4.8); POTASSIUM 4.6 mEQ/L (3.4-4.9); SODIUM 135 mEQ/L (135-145); TOTAL PROTEIN 6.3 g/dL (6.6-8.7)
[2016-10-04] MEDS: metroNIDAZOLE 500mg 100 ML IVPB SCH ×3 (05:48→21:42)
--- NOTE | 2016-10-04 07:17 | Infectious Diseases Prog Note ---
Assessment/Plan Assessment/Plan ASSESSMENT: 66 y/o male with: // COPD exacerbation - delayed SCx 4+ PSA pt has increased secretions - CXR 09/27: Lungs are hyperinflated. No new infiltrates - negative: influenza // Leukocytosis - increased ( post op, 10/01 SP steroids ) // Diarrhea x 1 resolved // afebrile // Acute VDRF - intubated 09/20, 10/03 SP trach // Severe pulmonary HTN / grade I diastolic dysfunction / mod TR // Pulmonary nodules // Chronic RLE DVT // Tobacco abuse // [facility] resident // Negative MRSA, VRE screens // NKDA // Full Code PLAN: - on Jairon nebs d# 5 / , add Ceftazidime d# 2 cont Flagyl and DC oral Vanco d# 3 ( 09/24 SP amikacin, invanz d# 5 / 5 ) ( 09/21 SP IV vancomycin d# 2 ) - taper steroids per pulm - monitor CBC, temperatures - monitor BMP - monitor CXR - vent support, wean as tolerated. - PEG today - Monitor cx ( Bl,Ur , sp ) Subjective Constitutional: Denies: anorexia, chills, drenching sweats, fatigue, fever, no symptoms, other Allergies: Coded Allergies: No Known Allergies (Unverified , 06/17/16) Objective Vital Signs Last 24 Hour Vital Signs Date Time Temp Pulse Resp B/P Pulse Ox O2 Delivery O2 Flow Rate FiO2 10/04/16 06:00 114 16 115/57 100 Mechanical Ventilator 40 10/04/16 05:23 113 16 40 10/04/16 05:00 113 16 117/93 100 Mechanical Ventilator 40 10/04/16 04:00 98.8 110 16 117/77 100 Mechanical Ventilator 40 10/04/16 04:00 40 10/04/16 04:00 110 10/04/16 03:15 108 16 40 10/04/16 03:00 110 16 118/75 100 Mechanical Ventilator 40 10/04/16 02:00 111 16 131/68 100 Mechanical Ventilator 40 10/04/16 01:00 115 16 40 10/04/16 01:00 115 19 115/83 100 Mechanical Ventilator 40 10/04/16 00:00 40 10/04/16 00:00 111 10/04/16 00:00 99.7 111 16 93/51 100 Mechanical Ventilator 40 10/03/16 23:24 117 16 100 Mechanical Ventilator 40 10/03/16 23:00 112 18 129/85 100 Mechanical Ventilator 40 10/03/16 22:50 109 16 40 10/03/16 22:49 113 16 100 Mechanical Ventilator 40 10/03/16 22:00 109 18 109/63 100 Mechanical Ventilator 40 10/03/16 21:00 112 17 92/66 100 Mechanical Ventilator 40 10/03/16 21:00 113 16 40 10/03/16 20:00 98.7 110 16 86/54 100 Mechanical Ventilator 40 10/03/16 20:00 110 10/03/16 20:00 40 10/03/16 19:25 112 16 40 10/03/16 19:00 112 16 87/47 100 Mechanical Ventilator 40 10/03/16 18:00 117 16 83/43 100 Mechanical Ventilator 40 10/03/16 17:29 119 16 40 10/03/16 17:00 122 16 81/48 100 Mechanical Ventilator 40 10/03/16 16:00 40 10/03/16 16:00 125 10/03/16 16:00 98.9 124 16 88/71 100 Mechanical Ventilator 40 10/03/16 15:25 127 16 40 10/03/16 15:00 128 18 80/46 100 Mechanical Ventilator 40 10/03/16 14:00 127 18 129/84 100 Mechanical Ventilator 40 10/03/16 13:02 128 15 40 10/03/16 13:00 128 18 104/56 100 Mechanical Ventilator 40 10/03/16 12:00 135 10/03/16 12:00 98.5 136 15 105/58 99 Mechanical Ventilator 40 10/03/16 12:00 40 10/03/16 11:18 136 15 40 10/03/16 11:00 135 18 99/45 100 Mechanical Ventilator 40 10/03/16 10:18 107 14 99 10/03/16 10:00 117 18 110/69 100 Mechanical Ventilator 40 10/03/16 09:00 130 18 104/71 100 Mechanical Ventilator 40 10/03/16 08:59 130 16 100 Mechanical Ventilator 40 10/03/16 08:51 130 16 40 10/03/16 08:48 130 16 100 Mechanical Ventilator 40 10/03/16 08:00 103 10/03/16 08:00 98.5 118 24 110/68 100 Mechanical Ventilator 40 10/03/16 08:00 40 Height (Feet): 6 Height (Inches): 2.00 Weight (Pounds): 126 HEENT: anicteric Respiratory/Chest: normal breath sounds Cardiovascular: regularly irregular Abdomen: non distended Laboratory Tests Test 10/04/16 03:45 White Blood Count 32.7 K/UL (4.8-10.8) *H Red Blood Count 2.96 M/UL (4.70-6.10) L Hemoglobin 8.2 G/DL (14.2-18.0) L Hematocrit 26.9 % (42.0-52.0) L Mean Corpuscular Volume 91 FL (80-99) Mean Corpuscular Hemoglobin 27.7 PG (27.0-31.0) Mean Corpuscular Hemoglobin Concent 30.5 G/DL (32.0-36.0) L Red Cell Distribution Width 15.3 % (11.6-14.8) H Platelet Count 338 K/UL (150-450) Mean Platelet Volume 7.4 FL (6.5-10.1) Neutrophils (%) (Auto) % (45.0-75.0) Lymphocytes (%) (Auto) % (20.0-45.0) Monocytes (%) (Auto) % (1.0-10.0) Eosinophils (%) (Auto) % (0.0-3.0) Basophils (%) (Auto) % (0.0-2.0) Neutrophils % (Manual) Pending Lymphocytes % (Manual) Pending Platelet Estimate Pending Platelet Morphology Pending Sodium Level 135 mEQ/L (135-145) Potassium Level 4.6 mEQ/L (3.4-4.9) Chloride Level 90 mEQ/L (98-107) L Carbon Dioxide Level 37 mEQ/L (20-30) H Anion Gap 8 (5-15) Blood Urea Nitrogen 29 mg/dL (7-23) H Creatinine 0.7 mg/dL (0.7-1.2) Estimat Glomerular Filtration Rate > 60 mL/min (>60) Glucose Level 113 mg/dL (74-106) H Calcium Level 8.8 mg/dL (8.6-10.2) Phosphorus Level 3.7 mg/dL (2.5-4.8) Magnesium Level 2.2 mg/dL (1.7-2.5) Total Bilirubin 0.7 mg/dL (0.0-1.2) Aspartate Amino Transf (AST/SGOT) 28 U/L (5-40) Alanine Aminotransferase (ALT/SGPT) 47 U/L (3-41) H Alkaline Phosphatase 153 U/L (40-129) H Total Protein 6.3 g/dL (6.6-8.7) L Albumin 2.5 g/dL (3.5-5.2) L Globulin 3.8 g/dL Albumin/Globulin Ratio 0.6 (1.0-2.7) L Current Medications Medications (Trade) Dose Ordered Sig/Shraddha Route PRN Reason Start Time Stop Time Status Last Admin Dose Admin Acetaminophen (Tylenol) 650 mg Q4H PRN ORAL fever>100.5 09/20/16 18:30 10/20/16 18:29 10/02/16 20:01 Cefazolin Sodium/ Dextrose (Ancef/D5W) 55 ml @ 110 mls/hr ONCE ONCE IVPB 10/04/16 13:00 10/04/16 13:29 Dextrose (D5W 1000ml) 1,000 ml @ 50 mls/hr Q20H IV 09/27/16 11:30 10/27/16 11:29 10/04/16 03:42 Dextrose (Dextrose 50%) STAT PRN IV Hypoglycemia 09/21/16 16:45 10/21/16 16:44 Insulin Aspart (NovoLOG) start when feeding started Q6HR SUBQ 09/21/16 18:00 10/21/16 17:59 10/04/16 00:23 Lorazepam 1 mg 1 mg Q4H PRN IV For Anxiety 09/30/16 15:30 10/07/16 15:29 10/03/16 12:05 Metronidazole (Flagyl) 100 ml @ 100 mls/hr Q8HR IVPB 10/02/16 12:00 10/09/16 11:59 10/04/16 05:48 Morphine Sulfate 4 mg 4 mg Q4H PRN IVP Pain 4-10 10/03/16 11:45 10/10/16 11:44 10/03/16 12:06 Ondansetron HCl (Zofran) 4 mg Q6H PRN IVP Nausea & Vomiting 09/20/16 18:30 10/20/16 18:29 10/03/16 07:42 Pantoprazole 40 mg 40 mg DAILY IVP 09/25/16 09:00 10/25/16 08:59 10/03/16 07:42 Polyethylene Glycol (Miralax) 17 gm DAILYPRN PRN ORAL Constipation 09/20/16 18:30 10/20/16 18:29 Tobramycin Sulfate (Nebcin) 300 mg Q12HR@10,22 INH 09/30/16 10:00 10/07/16 09:59 10/03/16 22:48 Vancomycin HCl (Vancomycin) 125 mg FOUR TIMES A DAY ORAL 10/02/16 12:00 10/09/16 11:59 10/03/16 21:02 KIMBERLEE HINKLE M.D. Oct 04, 2016 07:17
--- NOTE | 2016-10-04 07:39 | 48 Hour Post Anesthesia Eval ---
Post Anesthesia Evaluation Procedure: Tracheostomy Date of Evaluation: Oct 04, 2016 Time of Evaluation: 07:37 Blood Pressure Systolic: 115 0: 57 Pulse Rate: 116 Respiratory Rate: 16 Temperature (Fahrenheit): 98.8 O2 Sat by Pulse Oximetry: 100 Airway: patent - Ventilator Nausea: No Vomiting: No Pain Intensity: 0 Hydration Status: adequate Cardiopulmonary Status: Stable Mental Status/LOC: patient returned to baseline Follow-up Care/Observations: 0 Post-Anesthesia Complications: 0 Follow-up care needed: N/A Jasvir Bar MD Oct 04, 2016 07:39
[2016-10-04] MEDS: CefTAZidime 2 GM in D5W 110 ML IV SCH ×3 (08:21→21:17)
[2016-10-04] MEDS: Pantoprazole Inj IVP SCH (08:21)
[2016-10-04 08:42] LABS: ANISOCYTOSIS 1+; BAND NEUTROPHILS % (MANUAL) 4 % (0-8); BASOPHILS % (MANUAL) 0 % (0-2); EOSINOPHILS % (MANUAL) 1 % (0-3); LYMPHOCYTES % (MANUAL) 9 % (20-45); NEUTROPHILS % (MANUAL) 79 % (45-75); PLATELET ESTIMATE ADEQUATE; TOTAL CELLS COUNTED 100
[2016-10-04 08:43] LABS: PLATELET MORPHOLOGY NORMAL
[2016-10-04] MEDS: Tobramycin for inhalation INH SCH ×2 (08:51→21:11)
[2016-10-04 09:46] LABS: ABG BASE EXCESS 16.6; ABG PCO2 61.5 mmHg (35.0-45.0)
[2016-10-04 09:47] LABS: ABG ALLEN TEST POSITIVE
--- NOTE | 2016-10-04 10:48 | Pulmonolgy Critical Care Note ---
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, 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 Critical Care - Objective Last 24 Hour Vital Signs Date Time Temp Pulse Resp B/P Pulse Ox O2 Delivery O2 Flow Rate FiO2 10/04/16 10:00 99.0 108 16 90/55 100 Mechanical Ventilator 35 10/04/16 09:51 28 10/04/16 09:20 99.7 10/04/16 09:05 112 16 100 Mechanical Ventilator 40 10/04/16 09:00 110 16 95/54 99 Mechanical Ventilator 35 10/04/16 08:53 114 16 100 Mechanical Ventilator 40 10/04/16 08:52 114 16 40 10/04/16 08:00 99.4 116 16 98/60 100 Mechanical Ventilator 35 10/04/16 08:00 35 10/04/16 08:00 117 10/04/16 07:38 116 16 100 10/04/16 07:18 116 16 40 10/04/16 07:00 115 16 110/57 99 Mechanical Ventilator 35 10/04/16 06:00 114 16 115/57 100 Mechanical Ventilator 40 10/04/16 05:23 113 16 40 10/04/16 05:00 113 16 117/93 100 Mechanical Ventilator 40 10/04/16 04:00 98.8 110 16 117/77 100 Mechanical Ventilator 40 10/04/16 04:00 40 10/04/16 04:00 110 10/04/16 03:15 108 16 40 10/04/16 03:00 110 16 118/75 100 Mechanical Ventilator 40 10/04/16 02:00 111 16 131/68 100 Mechanical Ventilator 40 10/04/16 01:00 115 16 40 10/04/16 01:00 115 19 115/83 100 Mechanical Ventilator 40 10/04/16 00:00 40 10/04/16 00:00 111 10/04/16 00:00 99.7 111 16 93/51 100 Mechanical Ventilator 40 10/03/16 23:24 117 16 100 Mechanical Ventilator 40 10/03/16 23:00 112 18 129/85 100 Mechanical Ventilator 40 10/03/16 22:50 109 16 40 10/03/16 22:49 113 16 100 Mechanical Ventilator 40 10/03/16 22:00 109 18 109/63 100 Mechanical Ventilator 40 10/03/16 21:00 112 17 92/66 100 Mechanical Ventilator 40 10/03/16 21:00 113 16 40 10/03/16 20:00 98.7 110 16 86/54 100 Mechanical Ventilator 40 10/03/16 20:00 110 10/03/16 20:00 40 10/03/16 19:25 112 16 40 10/03/16 19:00 112 16 87/47 100 Mechanical Ventilator 40 10/03/16 18:00 117 16 83/43 100 Mechanical Ventilator 40 10/03/16 17:29 119 16 40 10/03/16 17:00 122 16 81/48 100 Mechanical Ventilator 40 10/03/16 16:00 40 10/03/16 16:00 125 10/03/16 16:00 98.9 124 16 88/71 100 Mechanical Ventilator 40 10/03/16 15:25 127 16 40 10/03/16 15:00 128 18 80/46 100 Mechanical Ventilator 40 10/03/16 14:00 127 18 129/84 100 Mechanical Ventilator 40 10/03/16 13:02 128 15 40 10/03/16 13:00 128 18 104/56 100 Mechanical Ventilator 40 10/03/16 12:00 135 10/03/16 12:00 98.5 136 15 105/58 99 Mechanical Ventilator 40 10/03/16 12:00 40 10/03/16 11:18 136 15 40 10/03/16 11:00 135 18 99/45 100 Mechanical Ventilator 40 Status: awake Condition: critical HEENT: atraumatic, normocephalic Lungs: clear Heart: HR/BP stable Abdomen: soft, non-tender, feeding tube Extremities: no C/C/E Decubiti: location, stage Accucheck: 135 Critical Care - Subjective ROS Limited/Unobtainable: Yes ICU Day: 14 Intubation Day: 14, s/p trach Condition: critical FI02: 35 Vent Support Breath Rate: 16 Vent Support Mode: AC Vent Tidal Volume: 600 Sputum Amount: Moderate PEEP: 5.0 PIP: 37 Secretions: none Tube Feeding Amount: 0 I&O: Intake and Output 10/03/16 10/04/16 19:00 07:00 Intake Total 920 ml 960 ml Output Total 430 ml 410 ml Balance 490 ml 550 ml Free Water 60 ml IV Total 700 ml 600 ml Tube Feeding 220 ml 300 ml Output Urine Total 430 ml 410 ml CXR: no change ET-Tube: 8.0 ET Position: 24 Labs: Laboratory Tests Test 10/04/16 03:45 10/04/16 09:35 White Blood Count 32.7 K/UL (4.8-10.8) *H Red Blood Count 2.96 M/UL (4.70-6.10) L Hemoglobin 8.2 G/DL (14.2-18.0) L Hematocrit 26.9 % (42.0-52.0) L Mean Corpuscular Volume 91 FL (80-99) Mean Corpuscular Hemoglobin 27.7 PG (27.0-31.0) Mean Corpuscular Hemoglobin Concent 30.5 G/DL (32.0-36.0) L Red Cell Distribution Width 15.3 % (11.6-14.8) H Platelet Count 338 K/UL (150-450) Mean Platelet Volume 7.4 FL (6.5-10.1) Neutrophils (%) (Auto) % (45.0-75.0) Lymphocytes (%) (Auto) % (20.0-45.0) Monocytes (%) (Auto) % (1.0-10.0) Eosinophils (%) (Auto) % (0.0-3.0) Basophils (%) (Auto) % (0.0-2.0) Differential Total Cells Counted 100 Neutrophils % (Manual) 79 % (45-75) H Lymphocytes % (Manual) 9 % (20-45) L Monocytes % (Manual) 7 % (1-10) Eosinophils % (Manual) 1 % (0-3) Basophils % (Manual) 0 % (0-2) Band Neutrophils 4 % (0-8) Platelet Estimate Adequate Platelet Morphology Normal Anisocytosis 1+ Sodium Level 135 mEQ/L (135-145) Potassium Level 4.6 mEQ/L (3.4-4.9) Chloride Level 90 mEQ/L (98-107) L Carbon Dioxide Level 37 mEQ/L (20-30) H Anion Gap 8 (5-15) Blood Urea Nitrogen 29 mg/dL (7-23) H Creatinine 0.7 mg/dL (0.7-1.2) Estimat Glomerular Filtration Rate > 60 mL/min (>60) Glucose Level 113 mg/dL (74-106) H Calcium Level 8.8 mg/dL (8.6-10.2) Phosphorus Level 3.7 mg/dL (2.5-4.8) Magnesium Level 2.2 mg/dL (1.7-2.5) Total Bilirubin 0.7 mg/dL (0.0-1.2) Aspartate Amino Transf (AST/SGOT) 28 U/L (5-40) Alanine Aminotransferase (ALT/SGPT) 47 U/L (3-41) H Alkaline Phosphatase 153 U/L (40-129) H Total Protein 6.3 g/dL (6.6-8.7) L Albumin 2.5 g/dL (3.5-5.2) L Globulin 3.8 g/dL Albumin/Globulin Ratio 0.6 (1.0-2.7) L Arterial Blood pH 7.450 (7.350-7.450) Arterial Blood Partial Pressure CO2 61.5 mmHg (35.0-45.0) *H Arterial Blood Partial Pressure O2 103.2 mmHg (75.0-100.0) H Arterial Blood HCO3 42.5 mmol/L (22.0-26.0) H Arterial Blood Oxygen Saturation 97.5 % (92.0-98.0) Arterial Blood Base Excess 16.6 Joseluis Test Positive REN WRIGHT Oct 04, 2016 10:48
--- NOTE | 2016-10-04 11:13 | Diagnostic Imaging Report ---
Indication: Dyspnea Comparison: Several previous chest x-rays performed 10/03/16 A single view chest radiograph was obtained. Findings: There is prominence of the left pulmonary hilum. Underlying mass or infiltrate suspected. Findings are fairly new as several recent X-rays do not show this appearance. Given the acuity and relatively rapid onset, findings may be inflammatory. Please correlate clinically. Followup is recommended until resolution. Nasogastric tube is in good position. Tracheostomy is noted. Lungs are hyperexpanded. Impression: Interval involvement of left hilar prominence somewhat ill-defined. Suspect perihilar pneumonia although neoplasm is not excluded.
[2016-10-04] MEDS ORDERED: ceFAZolin sod 1 GM in D5W 55 ML IVPB ONE (13:00)
--- NOTE | 2016-10-04 14:21 | Pre-Procedure Note/Attestation ---
Pre-Procedure Note/Attestation Complete Prior to Procedure Planned Procedure: not applicable Procedure Narrative: PEG Indications for Procedure Pre-Operative Diagnosis: dysphagia Attestation I attest that I discussed the nature of the procedure; its benefits; risks and complications; and alternatives (and the risks and benefits of such alternatives ), prior to the procedure, with the patient (or the patient's legal admissions representative). I attest that, if there was a reasonable possibility of needing a blood transfusion, the patient (or the patient's legal admissions representative) was given the [facility] standardized written summary, pursuant to the Tacho Woodman Blood Safety Act ([place] Health and Safety Code # 1645, as amended). I attest that I re-evaluated the patient just prior to the surgery and that there has been no change in the patient's H&P, except as documented below: ROSEMARY BURROUGHS Oct 04, 2016 14:21
--- NOTE | 2016-10-04 14:21 | General Progress Note ---
Assessment/Plan Assessment/Plan Assessment - abnormal LFT - Leukocytosis, presumed steroid induced - COPD - respiratory failure - s/p trach - dysphagia Recommendations - check abd u/s - follow LFT - check hep serologies - PEG today Subjective Allergies: Coded Allergies: No Known Allergies (Unverified , 06/17/16) Subjective above noted d/w ID - cleared for PEG placement pt with rising LFT noted still with Leukocytosis, but on steroids until 28 for PEG today Objective Last 24 Hour Vital Signs Date Time Temp Pulse Resp B/P Pulse Ox O2 Delivery O2 Flow Rate FiO2 10/04/16 14:00 104 20 84/50 100 Mechanical Ventilator 28 10/04/16 13:00 111 20 112/64 99 Mechanical Ventilator 28 10/04/16 13:00 107 16 40 10/04/16 12:00 99.0 109 16 121/86 100 Mechanical Ventilator 28 10/04/16 12:00 119 10/04/16 11:00 112 16 40 10/04/16 11:00 114 20 126/53 94 Mechanical Ventilator 35 10/04/16 10:00 99.0 108 16 90/55 100 Mechanical Ventilator 35 10/04/16 09:51 28 10/04/16 09:20 99.7 10/04/16 09:05 112 16 100 Mechanical Ventilator 40 10/04/16 09:00 110 16 95/54 99 Mechanical Ventilator 35 10/04/16 08:53 114 16 100 Mechanical Ventilator 40 10/04/16 08:52 114 16 40 10/04/16 08:00 99.4 116 16 98/60 100 Mechanical Ventilator 35 10/04/16 08:00 35 10/04/16 08:00 117 10/04/16 07:38 116 16 100 10/04/16 07:18 116 16 40 10/04/16 07:00 115 16 110/57 99 Mechanical Ventilator 35 10/04/16 06:00 114 16 115/57 100 Mechanical Ventilator 40 10/04/16 05:23 113 16 40 10/04/16 05:00 113 16 117/93 100 Mechanical Ventilator 40 10/04/16 04:00 98.8 110 16 117/77 100 Mechanical Ventilator 40 10/04/16 04:00 40 10/04/16 04:00 110 10/04/16 03:15 108 16 40 10/04/16 03:00 110 16 118/75 100 Mechanical Ventilator 40 10/04/16 02:00 111 16 131/68 100 Mechanical Ventilator 40 10/04/16 01:00 115 16 40 10/04/16 01:00 115 19 115/83 100 Mechanical Ventilator 40 10/04/16 00:00 40 10/04/16 00:00 111 10/04/16 00:00 99.7 111 16 93/51 100 Mechanical Ventilator 40 10/03/16 23:24 117 16 100 Mechanical Ventilator 40 10/03/16 23:00 112 18 129/85 100 Mechanical Ventilator 40 10/03/16 22:50 109 16 40 10/03/16 22:49 113 16 100 Mechanical Ventilator 40 10/03/16 22:00 109 18 109/63 100 Mechanical Ventilator 40 10/03/16 21:00 112 17 92/66 100 Mechanical Ventilator 40 10/03/16 21:00 113 16 40 10/03/16 20:00 98.7 110 16 86/54 100 Mechanical Ventilator 40 10/03/16 20:00 110 10/03/16 20:00 40 10/03/16 19:25 112 16 40 10/03/16 19:00 112 16 87/47 100 Mechanical Ventilator 40 10/03/16 18:00 117 16 83/43 100 Mechanical Ventilator 40 10/03/16 17:29 119 16 40 10/03/16 17:00 122 16 81/48 100 Mechanical Ventilator 40 10/03/16 16:00 40 10/03/16 16:00 125 10/03/16 16:00 98.9 124 16 88/71 100 Mechanical Ventilator 40 10/03/16 15:25 127 16 40 10/03/16 15:00 128 18 80/46 100 Mechanical Ventilator 40 Intake and Output 10/03/16 10/04/16 19:00 07:00 Intake Total 920 ml 960 ml Output Total 430 ml 410 ml Balance 490 ml 550 ml Free Water 60 ml IV Total 700 ml 600 ml Tube Feeding 220 ml 300 ml Output Urine Total 430 ml 410 ml Laboratory Tests 10/04/16 03:45: White Blood Count 32.7*H, Red Blood Count 2.96L, Hemoglobin 8.2L, Hematocrit 26.9L, Mean Corpuscular Volume 91, Mean Corpuscular Hemoglobin 27.7, Mean Corpuscular Hemoglobin Concent 30.5L, Red Cell Distribution Width 15.3H, Platelet Count 338, Mean Platelet Volume 7.4, Neutrophils (%) (Auto) , Lymphocytes (%) (Auto) , Monocytes (%) (Auto) , Eosinophils (%) (Auto) , Basophils (%) (Auto) , Differential Total Cells Counted 100, Neutrophils % ( Manual) 79H, Lymphocytes % (Manual) 9L, Monocytes % (Manual) 7, Eosinophils % ( Manual) 1, Basophils % (Manual) 0, Band Neutrophils 4, Platelet Estimate Adequate, Platelet Morphology Normal, Anisocytosis 1+, Sodium Level 135, Potassium Level 4.6, Chloride Level 90L, Carbon Dioxide Level 37H, Anion Gap 8, Blood Urea Nitrogen 29H, Creatinine 0.7, Estimat Glomerular Filtration Rate > 60 , Glucose Level 113H, Calcium Level 8.8, Phosphorus Level 3.7, Magnesium Level 2.2, Total Bilirubin 0.7, Aspartate Amino Transf (AST/SGOT) 28, Alanine Aminotransferase (ALT/SGPT) 47H, Alkaline Phosphatase 153H, Total Protein 6.3L, Albumin 2.5L, Globulin 3.8, Albumin/Globulin Ratio 0.6L 10/04/16 09:35: Arterial Blood pH 7.450, Arterial Blood Partial Pressure CO2 61.5*H, Arterial Blood Partial Pressure O2 103.2H, Arterial Blood HCO3 42.5H, Arterial Blood Oxygen Saturation 97.5, Arterial Blood Base Excess 16.6, Joseluis Test Positive Height (Feet): 6 Height (Inches): 2.00 Weight (Pounds): 126 Objective Elderly AA man NCAT (+) trach Coarse BS RRR soft NT abdomen (+) UE edema responsive ROSEMARY BURROUGHS Oct 04, 2016 14:21
--- NOTE | 2016-10-04 14:49 | Immediate Post-Op Evaluation ---
Immediate Post-Op Evalulation Immediate Post-Op Evalulation Procedure: Tracheostomy Date of Evaluation: Oct 04, 2016 Time of Evaluation: 14:48 IV Fluids: 200 Blood Pressure Systolic: 90 Blood Pressure Diastolic: 50 Pulse Rate: 100 Respiratory Rate: 14 O2 Sat by Pulse Oximetry: 100 Nausea: No Vomiting: No Complications none Patient Status: reacts, ventilated Hydration Status: adequate Drug: see chart EARLE ADAMS CRNA Oct 04, 2016 14:49
--- NOTE | 2016-10-04 14:53 | Anethesia Preoperative Eval ---
Anesthesia Pre-op PMH/ROS General Date of Evaluation: Oct 04, 2016 Time of Evaluation: 14:52 Anesthesiologist: shaji ASA Score: ASA 3 Mallampati Score Class I : Soft palate, uvula, fauces, pillars visible Class II: Soft palate, uvula, fauces visible Class III: Soft palate, base of uvula visible Class IV: Only hard plate visible Mallampati Classification: Class III Surgeon: idalmis Diagnosis: Failure to thrive Surgical Procedure: PEG placement Family History: no anesthesia problems Allergies: Coded Allergies: No Known Allergies (Unverified , 06/17/16) Medications: see eMAR Past Medical History Cardiovascular: Reports: HTN Pulmonary: Reports: COPD, other - mechanical ventilation via trach Gastrointestinal/Genitourinary: Reports: GERD Neurologic/Psychiatric: Denies: CVA, TIA, dementia, depression/anxiety, other Endocrine: Denies: DM, hypothyroidism, other, steroids HEENT: Denies: EKWOK (L), EKWOK (R), cataract (L), cataract (R), glaucoma, other Hematology/Immune: Reports: DVT, anemia Musculoskeletal/Integumentary: Denies: DDD, DJD, OA, RA, edema, other PSxH Narrative: tracheostomy 10/03/16 Anesthesia Pre-op Phys. Exam Physician Exam Last Vital Signs Date Time Temp Pulse Resp B/P Pulse Ox O2 Delivery O2 Flow Rate FiO2 10/04/16 14:49 100 14 100 10/04/16 14:00 84/50 Mechanical Ventilator 28 10/04/16 12:00 99.0 Neurologic: CN 2-12 intact Cardiovascular: RRR Gastrointestinal: S/NT/ND Airway Exam Mallampati Classification 3 Mallampati Score: Class II Teeth: missing, broken Anesthesia Pre-op A/P Labs Hematology Test 10/04/16 03:45 White Blood Count 32.7 K/UL (4.8-10.8) *H Red Blood Count 2.96 M/UL (4.70-6.10) L Hemoglobin 8.2 G/DL (14.2-18.0) L Hematocrit 26.9 % (42.0-52.0) L Mean Corpuscular Volume 91 FL (80-99) Mean Corpuscular Hemoglobin 27.7 PG (27.0-31.0) Mean Corpuscular Hemoglobin Concent 30.5 G/DL (32.0-36.0) L Red Cell Distribution Width 15.3 % (11.6-14.8) H Platelet Count 338 K/UL (150-450) Mean Platelet Volume 7.4 FL (6.5-10.1) Neutrophils (%) (Auto) % (45.0-75.0) Lymphocytes (%) (Auto) % (20.0-45.0) Monocytes (%) (Auto) % (1.0-10.0) Eosinophils (%) (Auto) % (0.0-3.0) Basophils (%) (Auto) % (0.0-2.0) Differential Total Cells Counted 100 Neutrophils % (Manual) 79 % (45-75) H Lymphocytes % (Manual) 9 % (20-45) L Monocytes % (Manual) 7 % (1-10) Eosinophils % (Manual) 1 % (0-3) Basophils % (Manual) 0 % (0-2) Band Neutrophils 4 % (0-8) Platelet Estimate Adequate Platelet Morphology Normal Anisocytosis 1+ Chemistry Test 10/04/16 03:45 Sodium Level 135 mEQ/L (135-145) Potassium Level 4.6 mEQ/L (3.4-4.9) Chloride Level 90 mEQ/L (98-107) L Carbon Dioxide Level 37 mEQ/L (20-30) H Anion Gap 8 (5-15) Blood Urea Nitrogen 29 mg/dL (7-23) H Creatinine 0.7 mg/dL (0.7-1.2) Estimat Glomerular Filtration Rate > 60 mL/min (>60) Glucose Level 113 mg/dL (74-106) H Calcium Level 8.8 mg/dL (8.6-10.2) Phosphorus Level 3.7 mg/dL (2.5-4.8) Magnesium Level 2.2 mg/dL (1.7-2.5) Total Bilirubin 0.7 mg/dL (0.0-1.2) Aspartate Amino Transf (AST/SGOT) 28 U/L (5-40) Alanine Aminotransferase (ALT/SGPT) 47 U/L (3-41) H Alkaline Phosphatase 153 U/L (40-129) H Total Protein 6.3 g/dL (6.6-8.7) L Albumin 2.5 g/dL (3.5-5.2) L Globulin 3.8 g/dL Albumin/Globulin Ratio 0.6 (1.0-2.7) L Studies Pre-op Studies: EKG - ST Risk Assessment & Plan Plan: mac Status Change Before Surgery: No Pre-Antibiotics Drug: see chart EARLE ADAMS CRNA Oct 04, 2016 14:53
--- NOTE | 2016-10-04 14:56 | 48 Hour Post Anesthesia Eval ---
Post Anesthesia Evaluation Procedure: peg placement Date of Evaluation: Oct 04, 2016 Time of Evaluation: 14:55 Blood Pressure Systolic: 85 0: 50 Pulse Rate: 95 Respiratory Rate: 14 O2 Sat by Pulse Oximetry: 100 Airway: other - trached Hydration Status: adequate Mental Status/LOC: patient returned to baseline Post-Anesthesia Complications: none EARLE ADAMS CRNA Oct 04, 2016 14:56
--- NOTE | 2016-10-04 15:02 | Endoscopy Procedure Note ---
Endoscopy Procedure Note Indication for Procedure: dysphagia Procedures Performed: EGD, PEG Operative Findings/Diagnosis: gastric polypx2, PEG Specimen: yes Pt Tolerated Procedure Well: Yes Estimated Blood Loss: none Anesthesiologist: Sarah Anesthesia: MAC, moderate sedation Medication Given: see anesthesia record Implant(s) used?: No 50 yrs or older w/o bx or poly: Not Applicable 10yrs. F/U not recommended: Not Applicable If not recommended, why?: ROSEMARY BURROUGHS Oct 04, 2016 15:02
--- NOTE | 2016-10-04 15:04 | Brief Operative Note ---
Immediate Post Operative Note Operative Note Chief Complaint: dysphagia Pre-op Diagnosis: dysphagia Procedure: EGD, Bx, PEG Post-op Diagnosis: gastric polyp x 2, bx, PEG Surgeon: alon Anesthesiologist: nathan Anesthesia: MAC, moderate sedation Specimen: yes Complications: none Condition: stable Drains: none Implant(s) used?: No ROSEMARY BURROUGHS Oct 04, 2016 15:03
--- NOTE | 2016-10-04 16:04 | Internal Med Progress Note ---
Subjective Date of Service: Oct 04, 2016 Physician Name Tadeo Verdin Attending Physician Steve Rader MD Current Medications Medications (Trade) Dose Ordered Sig/Shraddha Route PRN Reason Start Time Stop Time Status Last Admin Dose Admin Acetaminophen (Tylenol) 650 mg Q4H PRN ORAL fever>100.5 09/20/16 18:30 10/20/16 18:29 10/04/16 08:21 Ceftazidime/ Dextrose (Fortaz/D5W) 110 ml @ 220 mls/hr Q8HR IV 10/04/16 08:30 10/11/16 08:29 10/04/16 13:49 Dextrose (D5W 1000ml) 1,000 ml @ 50 mls/hr Q20H IV 09/27/16 11:30 10/27/16 11:29 10/04/16 03:42 Dextrose (Dextrose 50%) STAT PRN IV Hypoglycemia 09/21/16 16:45 10/21/16 16:44 Insulin Aspart (NovoLOG) start when feeding started Q6HR SUBQ 09/21/16 18:00 10/21/16 17:59 10/04/16 00:23 Lorazepam 1 mg 1 mg Q4H PRN IV For Anxiety 09/30/16 15:30 10/07/16 15:29 10/03/16 12:05 Metronidazole (Flagyl) 100 ml @ 100 mls/hr Q8HR IVPB 10/02/16 12:00 10/09/16 11:59 10/04/16 14:59 Morphine Sulfate 4 mg 4 mg Q4H PRN IVP Pain 4-10 10/03/16 11:45 10/10/16 11:44 10/03/16 12:06 Ondansetron HCl (Zofran) 4 mg Q6H PRN IVP Nausea & Vomiting 09/20/16 18:30 10/20/16 18:29 10/03/16 07:42 Pantoprazole 40 mg 40 mg DAILY IVP 09/25/16 09:00 10/25/16 08:59 10/04/16 08:21 Polyethylene Glycol (Miralax) 17 gm DAILYPRN PRN ORAL Constipation 09/20/16 18:30 10/20/16 18:29 Tobramycin Sulfate (Nebcin) 300 mg Q12HR@10,22 INH 09/30/16 10:00 10/07/16 09:59 10/04/16 08:51 Allergies: Coded Allergies: No Known Allergies (Unverified , 06/17/16) Subjective 66 YO M admitted with respiratory failure. ICU. Intubated and sedated. S/P tracheostomy 10/03/16. S/P PEG 10/04/16. Cover for Stanislav Rader. Objective Last Vital Signs Date Time Temp Pulse Resp B/P Pulse Ox O2 Delivery O2 Flow Rate FiO2 10/04/16 15:20 102 16 40 10/04/16 15:00 78/61 100 Mechanical Ventilator 10/04/16 12:00 99.0 Laboratory Tests Test 10/04/16 03:45 10/04/16 09:35 White Blood Count 32.7 K/UL (4.8-10.8) *H Red Blood Count 2.96 M/UL (4.70-6.10) L Hemoglobin 8.2 G/DL (14.2-18.0) L Hematocrit 26.9 % (42.0-52.0) L Mean Corpuscular Volume 91 FL (80-99) Mean Corpuscular Hemoglobin 27.7 PG (27.0-31.0) Mean Corpuscular Hemoglobin Concent 30.5 G/DL (32.0-36.0) L Red Cell Distribution Width 15.3 % (11.6-14.8) H Platelet Count 338 K/UL (150-450) Mean Platelet Volume 7.4 FL (6.5-10.1) Neutrophils (%) (Auto) % (45.0-75.0) Lymphocytes (%) (Auto) % (20.0-45.0) Monocytes (%) (Auto) % (1.0-10.0) Eosinophils (%) (Auto) % (0.0-3.0) Basophils (%) (Auto) % (0.0-2.0) Differential Total Cells Counted 100 Neutrophils % (Manual) 79 % (45-75) H Lymphocytes % (Manual) 9 % (20-45) L Monocytes % (Manual) 7 % (1-10) Eosinophils % (Manual) 1 % (0-3) Basophils % (Manual) 0 % (0-2) Band Neutrophils 4 % (0-8) Platelet Estimate Adequate Platelet Morphology Normal Anisocytosis 1+ Sodium Level 135 mEQ/L (135-145) Potassium Level 4.6 mEQ/L (3.4-4.9) Chloride Level 90 mEQ/L (98-107) L Carbon Dioxide Level 37 mEQ/L (20-30) H Anion Gap 8 (5-15) Blood Urea Nitrogen 29 mg/dL (7-23) H Creatinine 0.7 mg/dL (0.7-1.2) Estimat Glomerular Filtration Rate > 60 mL/min (>60) Glucose Level 113 mg/dL (74-106) H Calcium Level 8.8 mg/dL (8.6-10.2) Phosphorus Level 3.7 mg/dL (2.5-4.8) Magnesium Level 2.2 mg/dL (1.7-2.5) Total Bilirubin 0.7 mg/dL (0.0-1.2) Aspartate Amino Transf (AST/SGOT) 28 U/L (5-40) Alanine Aminotransferase (ALT/SGPT) 47 U/L (3-41) H Alkaline Phosphatase 153 U/L (40-129) H Total Protein 6.3 g/dL (6.6-8.7) L Albumin 2.5 g/dL (3.5-5.2) L Globulin 3.8 g/dL Albumin/Globulin Ratio 0.6 (1.0-2.7) L Arterial Blood pH 7.450 (7.350-7.450) Arterial Blood Partial Pressure CO2 61.5 mmHg (35.0-45.0) *H Arterial Blood Partial Pressure O2 103.2 mmHg (75.0-100.0) H Arterial Blood HCO3 42.5 mmol/L (22.0-26.0) H Arterial Blood Oxygen Saturation 97.5 % (92.0-98.0) Arterial Blood Base Excess 16.6 Joseluis Test Positive Intake and Output 10/03/16 10/04/16 19:00 07:00 Intake Total 920 ml 960 ml Output Total 430 ml 410 ml Balance 490 ml 550 ml Free Water 60 ml IV Total 700 ml 600 ml Tube Feeding 220 ml 300 ml Output Urine Total 430 ml 410 ml Objective General Appearance: moderate distress, thin EENT: PERRL/EOMI, normal ENT inspection Neck: non-tender, normal alignment, supple Cardiovascular: normal peripheral pulses, normal rate, regular rhythm, no gallop/murmur, no JVD Respiratory/Chest: Mech Vent; trach; respiratory distress, crackles/rales, rhonchi - bilaterally, expiratory wheezing Abdomen: non tender, soft, no organomegaly, no mass, decreased bowel sounds Extremities: normal range of motion Skin: normal pigmentation, warm/dry Assessment/Plan Problem List: (1) Lung nodule (2) DVT (deep venous thrombosis) (3) Acute respiratory failure Assessment & Plan: S/P tracheostomy 10/03/16. Cont vent per pulmonary (4) COPD exacerbation Assessment & Plan: Continue duoneb. Continue vent per pulmonary. (5) Pneumonia Assessment & Plan: D/Cantibiotics per ID-continue tobramycin nebs (6) Leukocytosis Assessment & Plan: Continue PO vanco and IV flagyl per ID. (7) Dysphagia Assessment & Plan: See GI consult- S/P PEG 10/04/16. Status: not improved TADEO VERDIN Oct 04, 2016 16:04
[2016-10-04] MEDS: Morphine Sulfate 4mg/ml Inj IVP PRN (17:57)
--- NOTE | 2016-10-04 18:34 | Cardiology Report ---
APPROVED REPORT EKG Measurement Heart [id number] Sinus tachycardia Low voltage QRS Septal infarct, age undetermined Abnormal ECG
--- NOTE | 2016-10-04 19:18 | Operative Note - Dictated ---
DATE OF OPERATION: 10/04/2016 PROCEDURE: Upper gastroendoscopy with gastrostomy tube placement. SURGEON: Uriel May M.D. ANESTHESIA: Please see the separate notes for details. PRE-ENDOSCOPIC DIAGNOSIS: Dysphagia. POSTOPERATIVE DIAGNOSIS: Status post gastrostomy tube placement. PROCEDURE: The procedure, its risks, indications, alternatives, and possible complications including, but not limited to bleeding, infection, perforation, , and anesthesia complications were explained the patient's family and informed consent was obtained. The patient was then sedated and a diagnostic upper endoscope was introduced through the oropharynx and advanced to the duodenum. The endoscope was then gradually withdrawn. The mucosa examined carefully. Examination of the upper gastric mucosa revealed two diminutive polyps in the stomach. A location for placement of gastrostomy tube was identified by palpation and transillumination techniques. The outside skin was sterilely prepared, anesthetized, and incised and the trocar needle was used to pass the gastrostomy tube with a single pass using a standard pull technique. The gastrostomy position was verified endoscopically and the biopsies of the two polyps were sent to pathology for review. The patient left the recovery in good condition. COMPLICATIONS: None. RECOMMENDATIONS: 1. Followup biopsy results. 2. Observe overnight. 3. Begin feedings tomorrow. Uriel May M.D. DR: ALICIA JOB#: [id number] CC:
[2016-10-04] MEDS ORDERED: DuoNeb 0.5-3(2.5)mg/3ml neb HHN PRN (19:30)
[2016-10-04] MEDS ORDERED: Tubing IV Secondary IV ONE (22:44)
[2016-10-04] MEDS ORDERED: LR 1000ml ONE (22:44)
[2016-10-05] VITALS (13 sets, daily range): BP systolic 83–140; BP diastolic 58–90
[2016-10-05 05:19] LABS: MEAN CORPUSCULAR HEMOGLOBIN 28.3 PG (27.0-31.0); MEAN CORPUSCULAR HGB CONC 31.6 G/DL (32.0-36.0); MEAN CORPUSCULAR VOLUME 90 FL (80-99); MEAN PLATELET VOLUME 7.1 FL (6.5-10.1); PLATELET COUNT 326 K/UL (150-450); RED BLOOD COUNT 2.91 M/UL (4.70-6.10)
[2016-10-05 05:28] LABS: WHITE BLOOD COUNT 28.3 K/UL (4.8-10.8)
[2016-10-05 05:36] LABS: ALANINE AMINOTRANSFERASE 50 U/L (3-41); ALBUMIN/GLOBULIN RATIO 0.6 (1.0-2.7); ANION GAP 14 (5-15); ASPARTATE AMINO TRANSFERASE 38 U/L (5-40); CALCIUM 8.6 mg/dL (8.6-10.2); CARBON DIOXIDE 34 mEQ/L (20-30); CHLORIDE 88 mEQ/L (98-107); CREATININE 0.5 mg/dL (0.7-1.2); GLOMERULAR FILTRATION RATE > 60 mL/min (>60); HEMOLYSIS 16; MAGNESIUM 2.2 mg/dL (1.7-2.5); PHOSPHORUS 3.5 mg/dL (2.5-4.8); POTASSIUM 4.2 mEQ/L (3.4-4.9); SODIUM 136 mEQ/L (135-145)
[2016-10-05] MEDS: CefTAZidime 2 GM in D5W 110 ML IV SCH ×3 (06:01→22:00)
[2016-10-05] MEDS: metroNIDAZOLE 500mg 100 ML IVPB SCH ×3 (06:02→22:33)
[2016-10-05] MEDS: NovoLOG Insulin Flexpen SUBQ SCH ×3 (06:03→17:41)
--- NOTE | 2016-10-05 07:30 | Pulmonolgy Critical Care Note ---
Critical Care - Asmt/Plan Assessment/Plan: ASSESSMENT acute hypoxemic hypercapnic respiratory failure requiring intubation failure to wean s/p trach 10/03 dysphagia, G tube placement 10/04 acute COPD exacerbation possible PNA Pulmonary nodules Chronic RLE DVT Tobacco abuse Hx HTN DM acute on chronic encephalopathy -resolved anemia PLAN OF CARE ICU vent , trach care Pulmonary toilet ABG this am with improvement, less hypercapnia CXR on Friday abx ID follows off steroids CT chest when more stable BS management with SS of insulin strict aspiration precautions, monitor GT feeding tolerance ( started this am) DVT, GI prophylaxis pain management bowel regimen DVT, prophylaxis monitor HH, anemia workup, stool OB transfer to [facility] case discussed and evaluated by supervising physician Critical Care - Objective Last 24 Hour Vital Signs Date Time Temp Pulse Resp B/P Pulse Ox O2 Delivery O2 Flow Rate FiO2 10/05/16 06:35 120 16 40 10/05/16 05:11 122 16 40 10/05/16 05:00 120 18 136/79 100 Mechanical Ventilator 28 10/05/16 04:00 28 10/05/16 04:00 119 10/05/16 04:00 99.1 118 25 107/82 99 Mechanical Ventilator 28 10/05/16 03:05 117 16 40 10/05/16 03:00 119 19 133/86 98 Mechanical Ventilator 28 10/05/16 02:00 118 19 118/83 98 Mechanical Ventilator 28 10/05/16 01:00 121 21 133/79 98 Mechanical Ventilator 28 10/05/16 00:51 119 16 40 10/05/16 00:00 98.8 122 20 132/90 100 Mechanical Ventilator 28 10/05/16 00:00 28 10/05/16 00:00 122 10/04/16 23:02 116 16 40 10/04/16 23:00 115 18 113/82 99 Mechanical Ventilator 28 10/04/16 22:00 98.9 110 18 101/76 100 Mechanical Ventilator 28 10/04/16 21:15 114 16 100 Mechanical Ventilator 40 10/04/16 21:14 114 16 100 Mechanical Ventilator 40 10/04/16 21:06 111 16 40 10/04/16 21:00 112 18 104/81 99 Mechanical Ventilator 28 10/04/16 20:00 28 10/04/16 20:00 99.2 109 17 103/83 99 Mechanical Ventilator 28 10/04/16 20:00 109 10/04/16 19:25 104 16 40 10/04/16 19:00 103 18 92/68 99 Mechanical Ventilator 28 10/04/16 18:25 98.9 10/04/16 18:00 108 18 109/80 100 Mechanical Ventilator 28 10/04/16 17:00 112 16 105/78 100 Mechanical Ventilator 28 10/04/16 17:00 112 16 40 10/04/16 16:00 98.9 107 16 88/72 100 Mechanical Ventilator 28 10/04/16 16:00 28 10/04/16 16:00 108 10/04/16 15:20 102 16 40 10/04/16 15:00 103 16 78/61 100 Mechanical Ventilator 28 10/04/16 14:56 95 14 100 10/04/16 14:49 100 14 100 10/04/16 14:00 104 20 84/50 100 Mechanical Ventilator 28 10/04/16 13:00 111 20 112/64 99 Mechanical Ventilator 28 10/04/16 13:00 107 16 40 10/04/16 12:00 99.0 109 16 121/86 100 Mechanical Ventilator 28 10/04/16 12:00 119 10/04/16 11:00 112 16 40 10/04/16 11:00 114 20 126/53 94 Mechanical Ventilator 35 10/04/16 10:00 99.0 108 16 90/55 100 Mechanical Ventilator 35 10/04/16 09:51 28 10/04/16 09:20 99.7 10/04/16 09:05 112 16 100 Mechanical Ventilator 40 10/04/16 09:00 110 16 95/54 99 Mechanical Ventilator 35 10/04/16 08:53 114 16 100 Mechanical Ventilator 40 10/04/16 08:52 114 16 40 10/04/16 08:00 99.4 116 16 98/60 100 Mechanical Ventilator 35 10/04/16 08:00 35 10/04/16 08:00 117 10/04/16 07:38 116 16 100 Objective: General Appearance: no apparent distress, vent AC 600-16-40% HEENT: normocephalic, atraumatic, anicteric Neck: trach, Shiley #8, secretions moderate , reina color, thick Respiratory/Chest: decreased breath sounds Cardiovascular/Chest: regular rhythm, no JVD, tachycardia Abdomen: normal bowel sounds, non tender, soft Extremities: normal capillary refill Neurologic: abnormal gait, lethargic Musculoskeletal: normal muscle bulk Micro: Microbiology Date/Time Source Procedure Growth Status 10/04/16 07:40 Sputum Gram Stain Pending Resulted 10/04/16 07:40 Sputum Culture - Preliminary Gram Negative Rafael Resulted Accucheck: 114 Critical Care - Subjective ROS Limited/Unobtainable: Yes Interval Events: still persistent leukocytosis, with small trend down, afebrile s/p trach 10/03 , no signs of respiratory distress Condition: improving, stable IV Access: peripheral EKG Rhythm: Sinus Tachycardia FI02: 40 Vent Support Breath Rate: 16 Vent Support Mode: AC Vent Tidal Volume: 600 Sputum Amount: Moderate PEEP: 5.0 PIP: 27 Fluids: D5W at 50 Tube Feeding Amount: 0 I&O: Intake and Output 10/04/16 10/05/16 19:00 07:00 Intake Total 850 ml 830 ml Output Total 695 ml 480 ml Balance 155 ml 350 ml Free Water 50 ml IV Total 770 ml 830 ml Tube Feeding 0 ml 0 ml Other 30 ml Output Urine Total 695 ml 480 ml # Bowel Movements 1 CXR: 10/04 Interval involvement of left hilar prominence somewhat ill-defined. Suspect perihilar pneumonia although neoplasm is not excluded. Hua (LitoKatia sampson NP Oct 05, 2016 07:30
[2016-10-05] MEDS: Pantoprazole Inj IVP SCH (08:14)
--- NOTE | 2016-10-05 08:40 | General Progress Note ---
Assessment/Plan Problem List: (1) Dysphagia ICD Codes: R13.10 - Dysphagia, unspecified SNOMED: 66264173, 875272067 (2) COPD exacerbation ICD Codes: J44.1 - Chronic obstructive pulmonary disease with (acute) exacerbation SNOMED: 025526181, 561163200 (3) Respiratory failure ICD Codes: J96.90 - Respiratory failure, unspecified, unspecified whether with hypoxia or hypercapnia SNOMED: 091486310 Qualifiers: Qualified Codes: J96.01 - Acute respiratory failure with hypoxia; J96.02 - Acute respiratory failure with hypercapnia (4) Lung nodule ICD Codes: R91.1 - Solitary pulmonary nodule SNOMED: 935423699 (5) LFTs abnormal ICD Codes: R79.89 - Other specified abnormal findings of blood chemistry SNOMED: 030958252 Assessment/Plan s/p PEG start TF fu labs Subjective ROS Limited/Unobtainable: No Allergies: Coded Allergies: No Known Allergies (Unverified , 06/17/16) Objective Last 24 Hour Vital Signs Date Time Temp Pulse Resp B/P Pulse Ox O2 Delivery O2 Flow Rate FiO2 10/05/16 08:24 100 10/05/16 08:24 95 16 99 Mechanical Ventilator 10/05/16 08:00 97.9 118 17 140/81 97 Mechanical Ventilator 10/05/16 08:00 28 10/05/16 07:00 123 18 101/81 94 Mechanical Ventilator 10/05/16 06:35 120 16 40 10/05/16 06:00 125 20 130/85 100 Mechanical Ventilator 10/05/16 05:11 122 16 40 10/05/16 05:00 120 18 136/79 100 Mechanical Ventilator 10/05/16 04:00 28 10/05/16 04:00 119 10/05/16 04:00 99.1 118 25 107/82 99 Mechanical Ventilator 10/05/16 03:05 117 16 40 10/05/16 03:00 119 19 133/86 98 Mechanical Ventilator 10/05/16 02:00 118 19 118/83 98 Mechanical Ventilator 10/05/16 01:00 121 21 133/79 98 Mechanical Ventilator 10/05/16 00:51 119 16 40 10/05/16 00:00 98.8 122 20 132/90 100 Mechanical Ventilator 10/05/16 00:00 28 10/05/16 00:00 122 10/04/16 23:02 116 16 40 10/04/16 23:00 115 18 113/82 99 Mechanical Ventilator 28 10/04/16 22:00 98.9 110 18 101/76 100 Mechanical Ventilator 28 10/04/16 21:15 114 16 100 Mechanical Ventilator 40 10/04/16 21:14 114 16 100 Mechanical Ventilator 40 10/04/16 21:06 111 16 40 10/04/16 21:00 112 18 104/81 99 Mechanical Ventilator 28 10/04/16 20:00 28 10/04/16 20:00 99.2 109 17 103/83 99 Mechanical Ventilator 28 10/04/16 20:00 109 10/04/16 19:25 104 16 40 10/04/16 19:00 103 18 92/68 99 Mechanical Ventilator 28 10/04/16 18:25 98.9 10/04/16 18:00 108 18 109/80 100 Mechanical Ventilator 28 10/04/16 17:00 112 16 105/78 100 Mechanical Ventilator 28 10/04/16 17:00 112 16 40 10/04/16 16:00 98.9 107 16 88/72 100 Mechanical Ventilator 28 10/04/16 16:00 28 10/04/16 16:00 108 10/04/16 15:20 102 16 40 10/04/16 15:00 103 16 78/61 100 Mechanical Ventilator 28 10/04/16 14:56 95 14 100 10/04/16 14:49 100 14 100 10/04/16 14:00 104 20 84/50 100 Mechanical Ventilator 28 10/04/16 13:00 111 20 112/64 99 Mechanical Ventilator 28 10/04/16 13:00 107 16 40 10/04/16 12:00 99.0 109 16 121/86 100 Mechanical Ventilator 28 10/04/16 12:00 119 10/04/16 11:00 112 16 40 10/04/16 11:00 114 20 126/53 94 Mechanical Ventilator 35 10/04/16 10:00 99.0 108 16 90/55 100 Mechanical Ventilator 35 10/04/16 09:51 28 10/04/16 09:20 99.7 10/04/16 09:05 112 16 100 Mechanical Ventilator 40 10/04/16 09:00 110 16 95/54 99 Mechanical Ventilator 35 10/04/16 08:53 114 16 100 Mechanical Ventilator 40 10/04/16 08:52 114 16 40 Intake and Output 10/04/16 10/05/16 19:00 07:00 Intake Total 850 ml 980 ml Output Total 695 ml 520 ml Balance 155 ml 460 ml Free Water 50 ml IV Total 770 ml 980 ml Tube Feeding 0 ml 0 ml Other 30 ml Output Urine Total 695 ml 520 ml # Bowel Movements 1 Laboratory Tests 10/04/16 09:35: Arterial Blood pH 7.450, Arterial Blood Partial Pressure CO2 61.5*H, Arterial Blood Partial Pressure O2 103.2H, Arterial Blood HCO3 42.5H, Arterial Blood Oxygen Saturation 97.5, Arterial Blood Base Excess 16.6, Joseluis Test Positive 10/05/16 04:30: White Blood Count 28.3*H, Red Blood Count 2.91L, Hemoglobin 8.2L, Hematocrit 26.1L, Mean Corpuscular Volume 90, Mean Corpuscular Hemoglobin 28.3, Mean Corpuscular Hemoglobin Concent 31.6L, Red Cell Distribution Width 15.0H, Platelet Count 326, Mean Platelet Volume 7.1, Neutrophils (%) (Auto) , Lymphocytes (%) (Auto) , Monocytes (%) (Auto) , Eosinophils (%) (Auto) , Basophils (%) (Auto) , Neutrophils % (Manual) [Pending], Lymphocytes % (Manual) [Pending], Platelet Estimate [Pending], Platelet Morphology [Pending], Sodium Level 136, Potassium Level 4.2, Chloride Level 88L, Carbon Dioxide Level 34H, Anion Gap 14, Blood Urea Nitrogen 18, Creatinine 0.5L, Estimat Glomerular Filtration Rate > 60, Glucose Level 93, Calcium Level 8.6, Phosphorus Level 3.5 , Magnesium Level 2.2, Total Bilirubin 0.6, Aspartate Amino Transf (AST/SGOT) 38 , Alanine Aminotransferase (ALT/SGPT) 50H, Alkaline Phosphatase 158H, Total Creatine Kinase 22L, Total Protein 6.0L, Albumin 2.3L, Globulin 3.7, Albumin/ Globulin Ratio 0.6L, Hepatitis A IgM Antibody [Pending], Hepatitis B Surface Antigen [Pending], Hepatitis B Core IgM Antibody [Pending], Hepatitis C Antibody [Pending] Height (Feet): 6 Height (Inches): 2.00 Weight (Pounds): 126 General Appearance: no apparent distress EENT: normal ENT inspection Neck: supple Cardiovascular: normal rate Respiratory/Chest: decreased breath sounds Abdomen: normal bowel sounds, non tender, soft Extremities: non-tender JULIANNE ESTEVEZ Oct 05, 2016 08:40
[2016-10-05 09:13] LABS: ANISOCYTOSIS 1+; BAND NEUTROPHILS % (MANUAL) 1 % (0-8); BASOPHILS % (MANUAL) 0 % (0-2); EOSINOPHILS % (MANUAL) 0 % (0-3); HYPOCHROMASIA 1+; LYMPHOCYTES % (MANUAL) 6 % (20-45); NEUTROPHILS % (MANUAL) 88 % (45-75); PLATELET ESTIMATE ADEQUATE; PLATELET MORPHOLOGY NORMAL; TOTAL CELLS COUNTED 100
[2016-10-05 09:14] LABS: ABG ALLEN TEST POSITIVE; ABG BASE EXCESS 8.6; ABG PCO2 45.1 mmHg (35.0-45.0)
[2016-10-05] MEDS: Tobramycin for inhalation INH SCH (10:30)
[2016-10-05] MEDS ORDERED: Miralax 17gm pkt ORAL PRN (11:30)
--- NOTE | 2016-10-05 15:05 | Internal Med Progress Note ---
Subjective Date of Service: Oct 05, 2016 Physician Name Tadeo Verdin Attending Physician Steve Rader MD Current Medications Medications (Trade) Dose Ordered Sig/Shraddha Route PRN Reason Start Time Stop Time Status Last Admin Dose Admin Acetaminophen (Tylenol) 650 mg Q4H PRN ORAL fever>100.5 10/05/16 11:30 11/04/16 11:29 Albuterol/ Ipratropium (DuoNeb 0.5-3(2.5)mg/3ml) 3 ml Q4H PRN HHN Shortness of Breath 10/05/16 11:30 10/10/16 11:29 Ceftazidime 2 gm/ Dextrose 110 ml @ 220 mls/hr Q8HR IV 10/05/16 14:00 10/12/16 13:59 10/05/16 14:20 Dextrose 1,000 ml @ 50 mls/hr Q20H IV 10/05/16 11:30 11/04/16 11:29 10/05/16 11:51 Dextrose (Dextrose 50%) STAT PRN IV Hypoglycemia 10/05/16 11:30 11/04/16 11:29 Insulin Aspart (NovoLOG) start when feeding started Q6HR SUBQ 10/05/16 12:00 11/04/16 11:59 10/05/16 11:53 Lorazepam (Ativan 2mg/ml 1ml) 1 mg Q4H PRN IV For Anxiety 10/05/16 11:30 10/12/16 11:29 Metronidazole (Flagyl) 100 ml @ 100 mls/hr Q8HR IVPB 10/05/16 14:00 10/12/16 13:59 10/05/16 14:21 Morphine Sulfate (Morphine Sulfate) 4 mg Q4H PRN IVP Pain 4-10 10/05/16 11:30 10/12/16 11:29 Ondansetron HCl (Zofran) 4 mg Q6H PRN IVP Nausea & Vomiting 10/05/16 11:30 11/04/16 11:29 Pantoprazole (Protonix) 40 mg DAILY IVP 10/06/16 09:00 11/05/16 08:59 Polyethylene Glycol (Miralax) 17 gm DAILYPRN PRN ORAL Constipation 10/05/16 11:30 11/04/16 11:29 Tobramycin Sulfate (Nebcin) 300 mg Q12HR@10,22 INH 10/05/16 22:00 10/12/16 21:59 Allergies: Coded Allergies: No Known Allergies (Unverified , 06/17/16) ROS Limited/Unobtainable: Yes Subjective 66 YO M admitted with respiratory failure. JORDAN. Intubated and sedated. S/P tracheostomy 10/03/16. S/P PEG 10/04/16. Cover for Int [facility]-Dr Rader. Objective Last Vital Signs Date Time Temp Pulse Resp B/P Pulse Ox O2 Delivery O2 Flow Rate FiO2 10/05/16 13:20 109 16 40 10/05/16 10:30 100 Mechanical Ventilator 10/05/16 10:00 83/58 10/05/16 08:00 97.9 Laboratory Tests Test 10/05/16 04:30 10/05/16 08:56 White Blood Count 28.3 K/UL (4.8-10.8) *H Red Blood Count 2.91 M/UL (4.70-6.10) L Hemoglobin 8.2 G/DL (14.2-18.0) L Hematocrit 26.1 % (42.0-52.0) L Mean Corpuscular Volume 90 FL (80-99) Mean Corpuscular Hemoglobin 28.3 PG (27.0-31.0) Mean Corpuscular Hemoglobin Concent 31.6 G/DL (32.0-36.0) L Red Cell Distribution Width 15.0 % (11.6-14.8) H Platelet Count 326 K/UL (150-450) Mean Platelet Volume 7.1 FL (6.5-10.1) Neutrophils (%) (Auto) % (45.0-75.0) Lymphocytes (%) (Auto) % (20.0-45.0) Monocytes (%) (Auto) % (1.0-10.0) Eosinophils (%) (Auto) % (0.0-3.0) Basophils (%) (Auto) % (0.0-2.0) Differential Total Cells Counted 100 Neutrophils % (Manual) 88 % (45-75) H Lymphocytes % (Manual) 6 % (20-45) L Monocytes % (Manual) 5 % (1-10) Eosinophils % (Manual) 0 % (0-3) Basophils % (Manual) 0 % (0-2) Band Neutrophils 1 % (0-8) Platelet Estimate Adequate Platelet Morphology Normal Hypochromasia 1+ Anisocytosis 1+ Sodium Level 136 mEQ/L (135-145) Potassium Level 4.2 mEQ/L (3.4-4.9) Chloride Level 88 mEQ/L (98-107) L Carbon Dioxide Level 34 mEQ/L (20-30) H Anion Gap 14 (5-15) Blood Urea Nitrogen 18 mg/dL (7-23) Creatinine 0.5 mg/dL (0.7-1.2) L Estimat Glomerular Filtration Rate > 60 mL/min (>60) Glucose Level 93 mg/dL (74-106) Calcium Level 8.6 mg/dL (8.6-10.2) Phosphorus Level 3.5 mg/dL (2.5-4.8) Magnesium Level 2.2 mg/dL (1.7-2.5) Total Bilirubin 0.6 mg/dL (0.0-1.2) Aspartate Amino Transf (AST/SGOT) 38 U/L (5-40) Alanine Aminotransferase (ALT/SGPT) 50 U/L (3-41) H Alkaline Phosphatase 158 U/L (40-129) H Total Creatine Kinase 22 U/L (38-174) L Total Protein 6.0 g/dL (6.6-8.7) L Albumin 2.3 g/dL (3.5-5.2) L Globulin 3.7 g/dL Albumin/Globulin Ratio 0.6 (1.0-2.7) L Hepatitis A IgM Antibody Pending Hepatitis B Surface Antigen Pending Hepatitis B Core IgM Antibody Pending Hepatitis C Antibody Pending Arterial Blood pH 7.481 (7.350-7.450) Arterial Blood Partial Pressure CO2 45.1 mmHg (35.0-45.0) H Arterial Blood Partial Pressure O2 72.3 mmHg (75.0-100.0) L Arterial Blood HCO3 32.9 mmol/L (22.0-26.0) H Arterial Blood Oxygen Saturation 93.4 % (92.0-98.0) Arterial Blood Base Excess 8.6 Joseluis Test Positive Microbiology Date/Time Source Procedure Growth Status 10/04/16 09:15 Blood Blood Culture - Preliminary NO GROWTH AFTER 24 HOURS Resulted 10/04/16 09:00 Blood Blood Culture - Preliminary NO GROWTH AFTER 24 HOURS Resulted 10/04/16 07:40 Sputum Gram Stain - Final Resulted 10/04/16 07:40 Sputum Culture - Preliminary Gram Negative Rafael Resulted 10/04/16 07:40 Urine,Clean Catch Urine Culture - Preliminary NO GROWTH AFTER 24 HOURS Resulted Intake and Output 10/04/16 10/05/16 19:00 07:00 Intake Total 850 ml 980 ml Output Total 695 ml 520 ml Balance 155 ml 460 ml Free Water 50 ml IV Total 770 ml 980 ml Tube Feeding 0 ml 0 ml Other 30 ml Output Urine Total 695 ml 520 ml # Bowel Movements 1 Objective General Appearance: moderate distress, thin EENT: PERRL/EOMI, normal ENT inspection Neck: non-tender, normal alignment, supple Cardiovascular: normal peripheral pulses, normal rate, regular rhythm, no gallop/murmur, no JVD Respiratory/Chest: Mech Vent; trach; respiratory distress, crackles/rales, rhonchi - bilaterally, expiratory wheezing Abdomen: non tender, soft, no organomegaly, no mass, decreased bowel sounds Extremities: normal range of motion Skin: normal pigmentation, warm/dry Assessment/Plan Problem List: (1) Lung nodule (2) DVT (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 (3) Acute respiratory failure Assessment & Plan: S/P tracheostomy 10/03/16. Cont vent per pulmonary (4) COPD exacerbation Assessment & Plan: Continue duoneb. Continue vent per pulmonary. (5) Pneumonia Assessment & Plan: D/Cantibiotics per ID-continue tobramycin nebs (6) Leukocytosis Assessment & Plan: Continue PO vanco and IV flagyl per ID. (7) Dysphagia Assessment & Plan: See GI consult- S/P PEG 10/04/16. Status: not improved TADEO VERDIN Oct 05, 2016 15:05
[2016-10-05] MEDS ORDERED: NS 275ml ONE (17:35)
[2016-10-05] MEDS ORDERED: Sterile Water Irrig 1000ml IRRIG ONE (17:35)
[2016-10-05] MEDS: Morphine Sulfate 4mg/ml Inj IVP PRN (17:55)
[2016-10-05] MEDS ORDERED: Tobramycin for inhalation INH SCH (22:00)
[2016-10-06] VITALS: BP 108/83
[2016-10-06] MEDS: Morphine Sulfate 4mg/ml Inj IVP PRN ×2 (00:17→12:09)
[2016-10-06] MEDS: NovoLOG Insulin Flexpen SUBQ SCH ×5 (00:19→23:45)
[2016-10-06] MEDS: DuoNeb 0.5-3(2.5)mg/3ml neb HHN PRN ×4 (03:16→23:00)
[2016-10-06 04:00] VITALS: BP 149/75
[2016-10-06 05:43] LABS: MEAN CORPUSCULAR HEMOGLOBIN 27.7 PG (27.0-31.0); MEAN CORPUSCULAR HGB CONC 30.6 G/DL (32.0-36.0); MEAN CORPUSCULAR VOLUME 91 FL (80-99); PLATELET COUNT 333 K/UL (150-450); RED BLOOD COUNT 3.26 M/UL (4.70-6.10); RED CELL DISTRIBUTION WIDTH 15.3 % (11.6-14.8)
[2016-10-06] MEDS: CefTAZidime 2 GM in D5W 110 ML IV SCH ×3 (05:44→22:19)
[2016-10-06] MEDS: metroNIDAZOLE 500mg 100 ML IVPB SCH ×3 (05:45→22:19)
[2016-10-06 05:56] LABS: WHITE BLOOD COUNT 23.2 K/UL (4.8-10.8)
[2016-10-06 06:03] LABS: ANION GAP 9 (5-15); CALCIUM 8.6 mg/dL (8.6-10.2); CARBON DIOXIDE 38 mEQ/L (20-30); CHLORIDE 91 mEQ/L (98-107); CREATININE 0.5 mg/dL (0.7-1.2); GLOMERULAR FILTRATION RATE > 60 mL/min (>60); HEMOLYSIS 1; POTASSIUM 3.5 mEQ/L (3.4-4.9); SODIUM 138 mEQ/L (135-145)
[2016-10-06 06:04] LABS: HEMOLYSIS 11; IRON 13 ug/dL (59-158); TOTAL IRON BINDING CAPACITY 200 ug/dL (250-400)
[2016-10-06 06:05] LABS: FERRITIN 256 ng/mL (10-230)
--- NOTE | 2016-10-06 07:55 | General Progress Note ---
Assessment/Plan Problem List: (1) Dysphagia ICD Codes: R13.10 - Dysphagia, unspecified SNOMED: 61535769, 182840310 (2) COPD exacerbation ICD Codes: J44.1 - Chronic obstructive pulmonary disease with (acute) exacerbation SNOMED: 006644704, 507096275 (3) Respiratory failure ICD Codes: J96.90 - Respiratory failure, unspecified, unspecified whether with hypoxia or hypercapnia SNOMED: 984837261 Qualifiers: Qualified Codes: J96.01 - Acute respiratory failure with hypoxia; J96.02 - Acute respiratory failure with hypercapnia (4) Lung nodule ICD Codes: R91.1 - Solitary pulmonary nodule SNOMED: 500824329 (5) LFTs abnormal ICD Codes: R79.89 - Other specified abnormal findings of blood chemistry SNOMED: 580008751 Assessment/Plan s/p PEG TF iv iron fu labs Subjective ROS Limited/Unobtainable: No Allergies: Coded Allergies: No Known Allergies (Unverified , 06/17/16) Objective Last 24 Hour Vital Signs Date Time Temp Pulse Resp B/P Pulse Ox O2 Delivery O2 Flow Rate FiO2 10/06/16 07:17 28 10/06/16 07:17 112 17 100 Mechanical Ventilator 10/06/16 07:16 115 18 10 Mechanical Ventilator 10/06/16 07:10 96 19 28 10/06/16 05:22 117 19 28 10/06/16 04:00 114 10/06/16 04:00 96.3 115 18 149/75 96 Mechanical Ventilator 10/06/16 04:00 28 10/06/16 03:19 114 16 100 Mechanical Ventilator 10/06/16 03:15 28 10/06/16 03:15 119 16 95 Mechanical Ventilator 28 10/06/16 03:12 119 16 28 10/06/16 00:59 100 16 28 10/06/16 00:51 98.7 10/06/16 00:00 98.8 97 23 108/83 99 Mechanical Ventilator 10/06/16 00:00 98 10/06/16 00:00 28 10/05/16 23:15 95 18 28 10/05/16 22:12 89 16 100 Mechanical Ventilator 10/05/16 21:19 87 15 98 Mechanical Ventilator 10/05/16 21:19 28 10/05/16 21:17 87 16 28 10/05/16 20:00 28 10/05/16 19:47 98.6 94 20 91/67 98 Mechanical Ventilator 28 10/05/16 19:46 94 10/05/16 19:12 98 18 28 10/05/16 16:45 107 16 40 10/05/16 16:04 104 10/05/16 16:00 28 10/05/16 15:48 98.2 104 20 107/70 98 Mechanical Ventilator 28 20 10/05/16 15:00 109 16 40 10/05/16 13:20 109 16 40 10/05/16 12:00 97 10/05/16 12:00 28 10/05/16 10:30 115 16 40 10/05/16 10:30 114 16 100 Mechanical Ventilator 28 10/05/16 10:30 115 16 100 Mechanical Ventilator 28 10/05/16 10:00 100 16 83/58 98 Mechanical Ventilator 28 10/05/16 09:00 111 17 99/69 98 Mechanical Ventilator 28 10/05/16 08:56 116 16 40 10/05/16 08:34 116 18 100 Bi-pap 100 10/05/16 08:24 100 10/05/16 08:24 95 16 99 Mechanical Ventilator 28 10/05/16 08:00 97.9 118 17 140/81 97 Mechanical Ventilator 10/05/16 08:00 122 10/05/16 08:00 28 Intake and Output 10/05/16 10/06/16 19:00 07:00 Intake Total 925 ml 1405 ml Output Total 255 ml 850 ml Balance 670 ml 555 ml Free Water 100 ml 100 ml IV Total 710 ml 870 ml Tube Feeding 115 ml 435 ml Output Urine Total 255 ml 850 ml Laboratory Tests 10/05/16 08:56: Arterial Blood pH 7.481H, Arterial Blood Partial Pressure CO2 45.1H, Arterial Blood Partial Pressure O2 72.3L, Arterial Blood HCO3 32.9H, Arterial Blood Oxygen Saturation 93.4, Arterial Blood Base Excess 8.6, Joseluis Test Positive 10/06/16 05:00: White Blood Count 23.2*H, Red Blood Count 3.26L, Hemoglobin 9.0L, Hematocrit 29.6L, Mean Corpuscular Volume 91, Mean Corpuscular Hemoglobin 27.7, Mean Corpuscular Hemoglobin Concent 30.6L, Red Cell Distribution Width 15.3H, Platelet Count 333, Mean Platelet Volume 7.0, Neutrophils (%) (Auto) , Lymphocytes (%) (Auto) , Monocytes (%) (Auto) , Eosinophils (%) (Auto) , Basophils (%) (Auto) , Neutrophils % (Manual) [Pending], Lymphocytes % (Manual) [Pending], Platelet Estimate [Pending], Platelet Morphology [Pending], Sodium Level 138, Potassium Level 3.5, Chloride Level 91L, Carbon Dioxide Level 38H, Anion Gap 9, Blood Urea Nitrogen 11, Creatinine 0.5L, Estimat Glomerular Filtration Rate > 60, Glucose Level 194#H, Calcium Level 8.6, Iron Level 13L, Total Iron Binding Capacity 200L, Percent Iron Saturation 7L, Unsaturated Iron Binding 187, Ferritin 256H, Vitamin B12 Level 1750H, RBC Folate Hemolysate [ Pending], Red Blood Cell Folate [Pending] Height (Feet): 6 Height (Inches): 2.00 Weight (Pounds): 126 General Appearance: no apparent distress EENT: normal ENT inspection Neck: supple Cardiovascular: normal rate Respiratory/Chest: decreased breath sounds Abdomen: normal bowel sounds, non tender, soft Extremities: non-tender JULIANNE ESTEVEZ Oct 06, 2016 07:55
[2016-10-06 08:00] VITALS: BP 97/59
[2016-10-06] MEDS: Pantoprazole Inj IVP SCH (08:13)
[2016-10-06] MEDS: LORazepam Inj 2mg/ml 1ml IV PRN ×2 (08:14→19:13)
[2016-10-06 10:05] LABS: BAND NEUTROPHILS % (MANUAL) 0 % (0-8); BASOPHILS % (MANUAL) 0 % (0-2); EOSINOPHILS % (MANUAL) 0 % (0-3); HYPOCHROMASIA 2+; LYMPHOCYTES % (MANUAL) 3 % (20-45); NEUTROPHILS % (MANUAL) 91 % (45-75); PLATELET ESTIMATE ADEQUATE; TOTAL CELLS COUNTED 100
[2016-10-06 10:06] LABS: ANISOCYTOSIS 1+; PLATELET MORPHOLOGY NORMAL
--- NOTE | 2016-10-06 10:08 | Infectious Diseases Prog Note ---
Assessment/Plan Assessment/Plan A: Pneumonia with Pseudomonas Leukocytosis COPD VDRF Pulmonary HPN P: Continue Ceftazidime & Flagyl Discontinue Tobramycin inhaler Subjective ROS Limited/Unobtainable: Yes Allergies: Coded Allergies: No Known Allergies (Unverified , 06/17/16) Objective Vital Signs Last 24 Hour Vital Signs Date Time Temp Pulse Resp B/P Pulse Ox O2 Delivery O2 Flow Rate FiO2 10/06/16 09:10 98 16 28 10/06/16 08:00 97.5 99 18 97/59 98 Mechanical Ventilator 28 10/06/16 08:00 28 10/06/16 07:17 28 10/06/16 07:17 112 17 100 Mechanical Ventilator 28 10/06/16 07:16 115 18 10 Mechanical Ventilator 28 10/06/16 07:10 114 19 28 10/06/16 05:22 117 19 28 10/06/16 04:00 114 10/06/16 04:00 96.3 115 18 149/75 96 Mechanical Ventilator 28 10/06/16 04:00 28 10/06/16 03:19 114 16 100 Mechanical Ventilator 28 10/06/16 03:15 28 10/06/16 03:15 119 16 95 Mechanical Ventilator 28 10/06/16 03:12 119 16 28 10/06/16 00:59 100 16 28 10/06/16 00:51 98.7 10/06/16 00:00 98.8 97 23 108/83 99 Mechanical Ventilator 28 10/06/16 00:00 98 10/06/16 00:00 28 10/05/16 23:15 95 18 28 10/05/16 22:12 89 16 100 Mechanical Ventilator 28 10/05/16 21:19 87 15 98 Mechanical Ventilator 28 10/05/16 21:19 28 10/05/16 21:17 87 16 28 10/05/16 20:00 28 10/05/16 19:47 98.6 94 20 91/67 98 Mechanical Ventilator 28 10/05/16 19:46 94 10/05/16 19:12 98 18 28 10/05/16 16:45 107 16 40 10/05/16 16:04 104 10/05/16 16:00 28 10/05/16 15:48 98.2 104 20 107/70 98 Mechanical Ventilator 28 20 10/05/16 15:00 109 16 40 10/05/16 13:20 109 16 40 10/05/16 12:00 97 10/05/16 12:00 28 10/05/16 10:30 115 16 40 10/05/16 10:30 114 16 100 Mechanical Ventilator 28 10/05/16 10:30 115 16 100 Mechanical Ventilator 28 Height (Feet): 6 Height (Inches): 2.00 Weight (Pounds): 126 General Appearance: no acute distress HEENT: status post trach Respiratory/Chest: lungs clear, other - on ventilator Cardiovascular: normal rate Abdomen: soft, non tender, other - GT feeding Extremities: no edema Neurologic/Psychiatric: unresponsiveness Microbiology Date/Time Source Procedure Growth Status 10/04/16 09:15 Blood Blood Culture - Preliminary NO GROWTH AFTER 24 HOURS Resulted 10/04/16 09:00 Blood Blood Culture - Preliminary NO GROWTH AFTER 24 HOURS Resulted 10/04/16 07:40 Sputum Gram Stain - Final Complete 10/04/16 07:40 Sputum Culture - Final Pseudomonas Aeruginosa Complete 10/04/16 07:40 Urine,Clean Catch Urine Culture - Preliminary NO GROWTH AFTER 24 HOURS Resulted Laboratory Tests Test 10/06/16 05:00 White Blood Count 23.2 K/UL (4.8-10.8) *H Red Blood Count 3.26 M/UL (4.70-6.10) L Hemoglobin 9.0 G/DL (14.2-18.0) L Hematocrit 29.6 % (42.0-52.0) L Mean Corpuscular Volume 91 FL (80-99) Mean Corpuscular Hemoglobin 27.7 PG (27.0-31.0) Mean Corpuscular Hemoglobin Concent 30.6 G/DL (32.0-36.0) L Red Cell Distribution Width 15.3 % (11.6-14.8) H Platelet Count 333 K/UL (150-450) Mean Platelet Volume 7.0 FL (6.5-10.1) Neutrophils (%) (Auto) % (45.0-75.0) Lymphocytes (%) (Auto) % (20.0-45.0) Monocytes (%) (Auto) % (1.0-10.0) Eosinophils (%) (Auto) % (0.0-3.0) Basophils (%) (Auto) % (0.0-2.0) Neutrophils % (Manual) Pending Lymphocytes % (Manual) Pending Platelet Estimate Pending Platelet Morphology Pending Sodium Level 138 mEQ/L (135-145) Potassium Level 3.5 mEQ/L (3.4-4.9) Chloride Level 91 mEQ/L (98-107) L Carbon Dioxide Level 38 mEQ/L (20-30) H Anion Gap 9 (5-15) Blood Urea Nitrogen 11 mg/dL (7-23) Creatinine 0.5 mg/dL (0.7-1.2) L Estimat Glomerular Filtration Rate > 60 mL/min (>60) Glucose Level 194 mg/dL (74-106) #H Calcium Level 8.6 mg/dL (8.6-10.2) Iron Level 13 ug/dL (59-158) L Total Iron Binding Capacity 200 ug/dL (250-400) L Percent Iron Saturation 7 % (15-50) L Unsaturated Iron Binding 187 ug/dL (112-346) Ferritin 256 ng/mL (10-230) H Vitamin B12 Level 1750 pg/mL (211-946) H RBC Folate Hemolysate Pending Red Blood Cell Folate Pending Current Medications Medications (Trade) Dose Ordered Sig/Shraddha Route PRN Reason Start Time Stop Time Status Last Admin Dose Admin Acetaminophen (Tylenol) 650 mg Q4H PRN ORAL fever>100.5 10/05/16 11:30 11/04/16 11:29 Albuterol/ Ipratropium (DuoNeb 0.5-3(2.5)mg/3ml) 3 ml Q4H PRN HHN Shortness of Breath 10/05/16 11:30 10/10/16 11:29 10/06/16 07:16 Ceftazidime 2 gm/ Dextrose 110 ml @ 220 mls/hr Q8HR IV 10/05/16 14:00 10/12/16 13:59 10/06/16 05:44 Dextrose 1,000 ml @ 50 mls/hr Q20H IV 10/05/16 11:30 11/04/16 11:29 10/06/16 08:13 Dextrose (Dextrose 50%) STAT PRN IV Hypoglycemia 10/05/16 11:30 11/04/16 11:29 Insulin Aspart (NovoLOG) start when feeding started Q6HR SUBQ 10/05/16 12:00 11/04/16 11:59 10/06/16 05:47 Iron Sucrose/ Sodium Chloride (Venofer/Sodium Chloride) 60 ml @ 240 mls/hr BEDTIME IVPB 10/06/16 21:00 10/10/16 21:14 Lorazepam (Ativan 2mg/ml 1ml) 1 mg Q4H PRN IV For Anxiety 10/05/16 11:30 10/12/16 11:29 10/06/16 08:14 Metronidazole (Flagyl) 100 ml @ 100 mls/hr Q8HR IVPB 10/05/16 14:00 10/12/16 13:59 10/06/16 05:45 Morphine Sulfate (Morphine Sulfate) 4 mg Q4H PRN IVP Pain 4-10 10/05/16 11:30 10/12/16 11:29 10/06/16 00:17 Ondansetron HCl (Zofran) 4 mg Q6H PRN IVP Nausea & Vomiting 10/05/16 11:30 11/04/16 11:29 Pantoprazole (Protonix) 40 mg DAILY IVP 10/06/16 09:00 11/05/16 08:59 10/06/16 08:13 Polyethylene Glycol (Miralax) 17 gm DAILYPRN PRN ORAL Constipation 10/05/16 11:30 11/04/16 11:29 Tobramycin Sulfate 300 mg 300 mg Q12HR@10,22 INH 10/05/16 22:00 10/12/16 21:59 10/05/16 22:03 LINNETTE DIAZ Oct 06, 2016 10:08
--- NOTE | 2016-10-06 10:34 | Diagnostic Imaging Report ---
Clinical history: Shortness of breath Technique: Portable AP chest radiograph was obtained. Comparison: 10/05/16. Findings: There is no significant interval change in the interval, allowing for differences in technique and positioning. Impression: 1. Tracheostomy tube. 2. Pulmonary hyperinflation and suspected emphysema. Small bilateral pleural effusions noted. 3. Persistent soft tissue prominence in the left hilar region. Correlate clinically.
[2016-10-06 12:00] VITALS: BP 99/65
--- NOTE | 2016-10-06 14:25 | Internal Med Progress Note ---
Subjective Date of Service: Oct 06, 2016 Physician Name Tadeo Verdin Attending Physician Steve Rader MD Current Medications Medications (Trade) Dose Ordered Sig/Shraddha Route PRN Reason Start Time Stop Time Status Last Admin Dose Admin Acetaminophen (Tylenol) 650 mg Q4H PRN ORAL fever>100.5 10/05/16 11:30 11/04/16 11:29 Albuterol/ Ipratropium (DuoNeb 0.5-3(2.5)mg/3ml) 3 ml Q4H PRN HHN Shortness of Breath 10/05/16 11:30 10/10/16 11:29 10/06/16 11:47 Ceftazidime 2 gm/ Dextrose 110 ml @ 220 mls/hr Q8HR IV 10/05/16 14:00 10/12/16 13:59 10/06/16 13:24 Dextrose (Dextrose 50%) STAT PRN IV Hypoglycemia 10/05/16 11:30 11/04/16 11:29 Insulin Aspart (NovoLOG) start when feeding started Q6HR SUBQ 10/05/16 12:00 11/04/16 11:59 10/06/16 12:05 Iron Sucrose/ Sodium Chloride (Venofer/Sodium Chloride) 60 ml @ 240 mls/hr BEDTIME IVPB 10/06/16 21:00 10/10/16 21:14 Lorazepam (Ativan 2mg/ml 1ml) 1 mg Q4H PRN IV For Anxiety 10/05/16 11:30 10/12/16 11:29 10/06/16 08:14 Metronidazole (Flagyl) 100 ml @ 100 mls/hr Q8HR IVPB 10/05/16 14:00 10/12/16 13:59 10/06/16 13:22 Morphine Sulfate (Morphine Sulfate) 4 mg Q4H PRN IVP Pain 4-10 10/05/16 11:30 10/12/16 11:29 10/06/16 12:09 Ondansetron HCl (Zofran) 4 mg Q6H PRN IVP Nausea & Vomiting 10/05/16 11:30 11/04/16 11:29 Pantoprazole (Protonix) 40 mg DAILY IVP 10/06/16 09:00 11/05/16 08:59 10/06/16 08:13 Polyethylene Glycol 17 gm 17 gm DAILYPRN PRN ORAL Constipation 10/05/16 11:30 11/04/16 11:29 Allergies: Coded Allergies: No Known Allergies (Unverified , 06/17/16) ROS Limited/Unobtainable: Yes Subjective 66 YO M admitted with respiratory failure. [facility]. Intubated and sedated. S/P tracheostomy 10/03/16. S/P PEG 10/04/16. Cover for Int Med-Dr Rader. Objective Last Vital Signs Date Time Temp Pulse Resp B/P Pulse Ox O2 Delivery O2 Flow Rate FiO2 10/06/16 13:00 102 15 28 10/06/16 12:40 97.5 10/06/16 12:24 99 Mechanical Ventilator 10/06/16 12:00 99/65 Laboratory Tests Test 10/06/16 05:00 10/06/16 11:50 White Blood Count 23.2 K/UL (4.8-10.8) *H Red Blood Count 3.26 M/UL (4.70-6.10) L Hemoglobin 9.0 G/DL (14.2-18.0) L Hematocrit 29.6 % (42.0-52.0) L Mean Corpuscular Volume 91 FL (80-99) Mean Corpuscular Hemoglobin 27.7 PG (27.0-31.0) Mean Corpuscular Hemoglobin Concent 30.6 G/DL (32.0-36.0) L Red Cell Distribution Width 15.3 % (11.6-14.8) H Platelet Count 333 K/UL (150-450) Mean Platelet Volume 7.0 FL (6.5-10.1) Neutrophils (%) (Auto) % (45.0-75.0) Lymphocytes (%) (Auto) % (20.0-45.0) Monocytes (%) (Auto) % (1.0-10.0) Eosinophils (%) (Auto) % (0.0-3.0) Basophils (%) (Auto) % (0.0-2.0) Differential Total Cells Counted 100 Neutrophils % (Manual) 91 % (45-75) H Lymphocytes % (Manual) 3 % (20-45) L Monocytes % (Manual) 6 % (1-10) Eosinophils % (Manual) 0 % (0-3) Basophils % (Manual) 0 % (0-2) Band Neutrophils 0 % (0-8) Platelet Estimate Adequate Platelet Morphology Normal Hypochromasia 2+ Anisocytosis 1+ Sodium Level 138 mEQ/L (135-145) Potassium Level 3.5 mEQ/L (3.4-4.9) Chloride Level 91 mEQ/L (98-107) L Carbon Dioxide Level 38 mEQ/L (20-30) H Anion Gap 9 (5-15) Blood Urea Nitrogen 11 mg/dL (7-23) Creatinine 0.5 mg/dL (0.7-1.2) L Estimat Glomerular Filtration Rate > 60 mL/min (>60) Glucose Level 194 mg/dL (74-106) #H Calcium Level 8.6 mg/dL (8.6-10.2) Iron Level 13 ug/dL (59-158) L Total Iron Binding Capacity 200 ug/dL (250-400) L Percent Iron Saturation 7 % (15-50) L Unsaturated Iron Binding 187 ug/dL (112-346) Ferritin 256 ng/mL (10-230) H Vitamin B12 Level 1750 pg/mL (211-946) H RBC Folate Hemolysate Pending Red Blood Cell Folate Pending Stool Occult Blood Pending Microbiology Date/Time Source Procedure Growth Status 10/04/16 09:15 Blood Blood Culture - Preliminary NO GROWTH AFTER 24 HOURS Resulted 10/04/16 09:00 Blood Blood Culture - Preliminary NO GROWTH AFTER 24 HOURS Resulted 10/04/16 07:40 Sputum Gram Stain - Final Complete 10/04/16 07:40 Sputum Culture - Final Pseudomonas Aeruginosa Complete 10/04/16 07:40 Urine,Clean Catch Urine Culture - Final NO GROWTH AFTER 48 HOURS Complete Intake and Output 10/05/16 10/06/16 19:00 07:00 Intake Total 925 ml 1465 ml Output Total 255 ml 850 ml Balance 670 ml 615 ml Free Water 100 ml 100 ml IV Total 710 ml 870 ml Tube Feeding 115 ml 495 ml Output Urine Total 255 ml 850 ml Objective General Appearance: moderate distress, thin EENT: PERRL/EOMI, normal ENT inspection Neck: non-tender, normal alignment, supple Cardiovascular: normal peripheral pulses, normal rate, regular rhythm, no gallop/murmur, no JVD Respiratory/Chest: Mech Vent; trach; respiratory distress, crackles/rales, rhonchi - bilaterally, expiratory wheezing Abdomen: non tender, soft, no organomegaly, no mass, decreased bowel sounds Extremities: normal range of motion Skin: normal pigmentation, warm/dry Assessment/Plan Problem List: (1) Lung nodule (2) DVT (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 (3) Acute respiratory failure Assessment & Plan: S/P tracheostomy 10/03/16. Cont vent per pulmonary (4) COPD exacerbation Assessment & Plan: Continue duoneb. Continue vent per pulmonary. (5) Pneumonia Assessment & Plan: D/Cantibiotics per ID-continue tobramycin nebs (6) Leukocytosis Assessment & Plan: Continue PO vanco and IV flagyl per ID. (7) Dysphagia Assessment & Plan: See GI consult- S/P PEG 10/04/16. Status: not improved Assessment/Plan Discharge Planning: long term care administrator acute care facility TADEO VERDIN Oct 06, 2016 14:25
[2016-10-06 16:00] VITALS: BP 114/59
--- NOTE | 2016-10-06 16:04 | Pulmonology Progress Note ---
Assessment/Plan Assessment/Plan ASSESSMENT acute hypoxemic hypercapnic respiratory failure requiring intubation failure to wean s/p trach 10/03 dysphagia, G tube placement 10/04 acute COPD exacerbation possible PNA Pulmonary nodules Chronic RLE DVT Tobacco abuse Hx HTN DM acute on chronic encephalopathy -resolved anemia PLAN OF CARE ICU vent , trach care Pulmonary toilet ABG 10/05 with only borderline hypercapnia CXR in am abx ID follows off steroids CT chest when more stable BS management with SS of insulin strict aspiration precautions, monitor GT feeding tolerance DVT, GI prophylaxis pain management bowel regimen DVT, prophylaxis monitor HH, anemia workup with low iron, stool OB pending started on Venofer case discussed and evaluated by supervising physician Subjective Allergies: Coded Allergies: No Known Allergies (Unverified , 06/17/16) Subjective transferred to [facility] leukocytosis trending down, still significant afebrile, tolerates GT feeding no signs of respiratory distress Objective Last 24 Hour Vital Signs Date Time Temp Pulse Resp B/P Pulse Ox O2 Delivery O2 Flow Rate FiO2 10/06/16 15:18 101 17 28 10/06/16 13:00 102 15 28 10/06/16 12:40 97.5 10/06/16 12:24 120 18 99 Mechanical Ventilator 28 10/06/16 12:00 98.1 107 18 99/65 97 Mechanical Ventilator 10/06/16 12:00 120 10/06/16 12:00 28 10/06/16 12:00 124 18 100 Mechanical Ventilator 28 10/06/16 12:00 28 10/06/16 11:20 120 18 28 10/06/16 09:10 98 16 28 10/06/16 08:00 97.5 99 18 97/59 98 Mechanical Ventilator 10/06/16 08:00 112 10/06/16 08:00 28 10/06/16 07:17 28 10/06/16 07:17 112 17 100 Mechanical Ventilator 28 10/06/16 07:16 115 18 100 Mechanical Ventilator 28 10/06/16 07:10 114 19 28 10/06/16 05:22 117 19 28 10/06/16 04:00 114 10/06/16 04:00 96.3 115 18 149/75 96 Mechanical Ventilator 28 10/06/16 04:00 28 10/06/16 03:19 114 16 100 Mechanical Ventilator 28 10/06/16 03:15 28 10/06/16 03:15 119 16 95 Mechanical Ventilator 28 10/06/16 03:12 119 16 28 10/06/16 00:59 100 16 28 10/06/16 00:00 98.8 97 23 108/83 99 Mechanical Ventilator 28 10/06/16 00:00 98 10/06/16 00:00 28 10/05/16 23:15 95 18 28 10/05/16 22:12 89 16 100 Mechanical Ventilator 28 10/05/16 21:19 87 15 98 Mechanical Ventilator 28 10/05/16 21:19 28 10/05/16 21:17 87 16 28 10/05/16 20:00 28 10/05/16 19:47 98.6 94 20 91/67 98 Mechanical Ventilator 28 10/05/16 19:46 94 10/05/16 19:12 98 18 28 10/05/16 16:45 107 16 40 10/05/16 16:04 104 Intake and Output 10/05/16 10/06/16 19:00 07:00 Intake Total 925 ml 1465 ml Output Total 255 ml 850 ml Balance 670 ml 615 ml Free Water 100 ml 100 ml IV Total 710 ml 870 ml Tube Feeding 115 ml 495 ml Output Urine Total 255 ml 850 ml Objective General Appearance: no apparent distress, vent AC 600-16-40% HEENT: normocephalic, atraumatic, anicteric Neck: trach, Shiley #8, secretions moderate , reina color, thick Respiratory/Chest: decreased breath sounds Cardiovascular/Chest: regular rhythm, no JVD, tachycardia Abdomen: normal bowel sounds, non tender, soft Extremities: normal capillary refill Neurologic: abnormal gait, lethargic Musculoskeletal: normal muscle bulk Microbiology Date/Time Source Procedure Growth Status 10/04/16 09:15 Blood Blood Culture - Preliminary NO GROWTH AFTER 24 HOURS Resulted 10/04/16 09:00 Blood Blood Culture - Preliminary NO GROWTH AFTER 24 HOURS Resulted 10/04/16 07:40 Sputum Gram Stain - Final Complete 10/04/16 07:40 Sputum Culture - Final Pseudomonas Aeruginosa Complete 10/04/16 07:40 Urine,Clean Catch Urine Culture - Final NO GROWTH AFTER 48 HOURS Complete Laboratory Tests 10/06/16 05:00: White Blood Count 23.2*H, Red Blood Count 3.26L, Hemoglobin 9.0L, Hematocrit 29.6L, Mean Corpuscular Volume 91, Mean Corpuscular Hemoglobin 27.7, Mean Corpuscular Hemoglobin Concent 30.6L, Red Cell Distribution Width 15.3H, Platelet Count 333, Mean Platelet Volume 7.0, Neutrophils (%) (Auto) , Lymphocytes (%) (Auto) , Monocytes (%) (Auto) , Eosinophils (%) (Auto) , Basophils (%) (Auto) , Differential Total Cells Counted 100, Neutrophils % ( Manual) 91H, Lymphocytes % (Manual) 3L, Monocytes % (Manual) 6, Eosinophils % ( Manual) 0, Basophils % (Manual) 0, Band Neutrophils 0, Platelet Estimate Adequate, Platelet Morphology Normal, Hypochromasia 2+, Anisocytosis 1+, Sodium Level 138, Potassium Level 3.5, Chloride Level 91L, Carbon Dioxide Level 38H, Anion Gap 9, Blood Urea Nitrogen 11, Creatinine 0.5L, Estimat Glomerular Filtration Rate > 60, Glucose Level 194#H, Calcium Level 8.6, Iron Level 13L, Total Iron Binding Capacity 200L, Percent Iron Saturation 7L, Unsaturated Iron Binding 187, Ferritin 256H, Vitamin B12 Level 1750H, RBC Folate Hemolysate [ Pending], Red Blood Cell Folate [Pending] 10/06/16 11:50: Stool Occult Blood [Pending] Current Medications Medications (Trade) Dose Ordered Sig/Shraddha Route PRN Reason Start Time Stop Time Status Last Admin Dose Admin Acetaminophen (Tylenol) 650 mg Q4H PRN ORAL fever>100.5 10/05/16 11:30 11/04/16 11:29 Albuterol/ Ipratropium (DuoNeb 0.5-3(2.5)mg/3ml) 3 ml Q4H PRN HHN Shortness of Breath 10/05/16 11:30 10/10/16 11:29 10/06/16 11:47 Ceftazidime 2 gm/ Dextrose 110 ml @ 220 mls/hr Q8HR IV 10/05/16 14:00 10/12/16 13:59 10/06/16 13:24 Dextrose (Dextrose 50%) STAT PRN IV Hypoglycemia 10/05/16 11:30 11/04/16 11:29 Insulin Aspart (NovoLOG) start when feeding started Q6HR SUBQ 10/05/16 12:00 11/04/16 11:59 10/06/16 12:05 Iron Sucrose/ Sodium Chloride (Venofer/Sodium Chloride) 60 ml @ 240 mls/hr BEDTIME IVPB 10/06/16 21:00 10/10/16 21:14 Lorazepam (Ativan 2mg/ml 1ml) 1 mg Q4H PRN IV For Anxiety 10/05/16 11:30 10/12/16 11:29 10/06/16 08:14 Metronidazole (Flagyl) 100 ml @ 100 mls/hr Q8HR IVPB 10/05/16 14:00 10/12/16 13:59 10/06/16 13:22 Morphine Sulfate (Morphine Sulfate) 4 mg Q4H PRN IVP Pain 4-10 10/05/16 11:30 10/12/16 11:29 10/06/16 12:09 Ondansetron HCl (Zofran) 4 mg Q6H PRN IVP Nausea & Vomiting 10/05/16 11:30 11/04/16 11:29 Pantoprazole (Protonix) 40 mg DAILY IVP 10/06/16 09:00 11/05/16 08:59 10/06/16 08:13 Polyethylene Glycol 17 gm 17 gm DAILYPRN PRN ORAL Constipation 10/05/16 11:30 11/04/16 11:29 Katia Sequeira NP ([facility]) Oct 06, 2016 16:04
[2016-10-06 20:00] VITALS: BP 118/81
[2016-10-06] MEDS: Iron Sucrose 100 MG in NS 55 ML IVPB SCH (22:08)
[2016-10-07] VITALS: BP 107/66
[2016-10-07] MEDS: DuoNeb 0.5-3(2.5)mg/3ml neb HHN PRN ×2 (03:22→12:43)
[2016-10-07 04:00] VITALS: BP 88/63
[2016-10-07] MEDS: LORazepam Inj 2mg/ml 1ml IV PRN (04:05)
[2016-10-07 05:27] LABS: MEAN CORPUSCULAR HEMOGLOBIN 27.6 PG (27.0-31.0); MEAN CORPUSCULAR HGB CONC 30.4 G/DL (32.0-36.0); MEAN CORPUSCULAR VOLUME 91 FL (80-99); MEAN PLATELET VOLUME 6.8 FL (6.5-10.1); PLATELET COUNT 305 K/UL (150-450); RED BLOOD COUNT 2.99 M/UL (4.70-6.10); RED CELL DISTRIBUTION WIDTH 15.7 % (11.6-14.8); WHITE BLOOD COUNT 14.2 K/UL (4.8-10.8)
[2016-10-07 05:48] LABS: ANION GAP 8 (5-15); CALCIUM 8.5 mg/dL (8.6-10.2); CARBON DIOXIDE 38 mEQ/L (20-30); CHLORIDE 94 mEQ/L (98-107); CREATININE 0.4 mg/dL (0.7-1.2); GLOMERULAR FILTRATION RATE > 60 mL/min (>60); HEMOLYSIS 3; POTASSIUM 3.4 mEQ/L (3.4-4.9); SODIUM 140 mEQ/L (135-145)
[2016-10-07] MEDS: metroNIDAZOLE 500mg 100 ML IVPB SCH ×3 (05:58→22:55)
[2016-10-07] MEDS: CefTAZidime 2 GM in D5W 110 ML IV SCH ×3 (05:58→22:05)
[2016-10-07] MEDS: NovoLOG Insulin Flexpen SUBQ SCH ×3 (05:59→17:04)
--- NOTE | 2016-10-07 08:41 | Diagnostic Imaging Report ---
Indications: DYSPNEA Technique: Portable AP chest Findings: Comparison: 10/04/16 Bilateral pulmonary hyperinflation with diaphragmatic flattening, asymmetric soft tissue prominence in the left hilar region unchanged. Remainder of cardiomediastinal silhouette stable. Tracheostomy tube remains in place. Nasogastric tube has been removed. Gastrostomy tube now overlies the stomach. IMPRESSION: Nasogastric extubation and placement of gastrostomy tube No other change from one day prior
[2016-10-07 08:45] VITALS: BP 117/81
[2016-10-07] MEDS: Pantoprazole Inj IVP SCH (09:42)
--- NOTE | 2016-10-07 10:52 | Pulmonology Progress Note ---
Assessment/Plan Problems: (1) Respiratory failure (2) COPD exacerbation (3) Emphysema of lung Respiratory: monitor respiratory rate, adjust FIO2, weaning trial Cardiac: continue to monitor HR/BP Renal: F/U I&O, keep IV fluid Infectious Disease: check cultures, continue antibiotics Gastrointestinal: continue feedings/current rate Endocrine: monitor blood sugar, check TSH, continue sliding scale insulin Hematologic: transfuse if hgb<8.5 Neurologic: PRN Ativan, PRN Morphine, keep patient comfortable Prophylaxis: Protonix, Heparin Notes Reviewed: log processor operator, cardio 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, consultants, casework supervisor Subjective ROS Limited/Unobtainable: No Allergies: Coded Allergies: No Known Allergies (Unverified , 06/17/16) Objective Last 24 Hour Vital Signs Date Time Temp Pulse Resp B/P Pulse Ox O2 Delivery O2 Flow Rate FiO2 10/07/16 09:22 101 18 28 10/07/16 08:45 97.7 103 20 117/81 98 Mechanical Ventilator 28 10/07/16 08:00 102 10/07/16 08:00 104 Mechanical Ventilator 10/07/16 08:00 28 10/07/16 07:26 101 18 28 10/07/16 04:45 110 18 28 10/07/16 04:00 28 10/07/16 04:00 97.3 104 22 88/63 97 Mechanical Ventilator 104 10/07/16 04:00 105 10/07/16 03:25 108 16 100 Mechanical Ventilator 28 10/07/16 03:23 100 10/07/16 03:23 108 18 100 Mechanical Ventilator 28 10/07/16 03:22 107 18 28 10/07/16 00:46 105 18 28 10/07/16 00:00 97.3 92 18 107/66 99 Mechanical Ventilator 28 10/07/16 00:00 106 10/07/16 00:00 28 10/06/16 23:04 109 16 100 Mechanical Ventilator 10/06/16 23:01 107 16 100 Mechanical Ventilator 10/06/16 23:01 100 10/06/16 22:57 107 16 28 10/06/16 20:44 104 16 28 10/06/16 20:00 109 10/06/16 20:00 28 10/06/16 20:00 97.7 91 18 118/81 98 Mechanical Ventilator 28 10/06/16 18:44 111 16 28 10/06/16 17:50 102 17 28 10/06/16 16:00 28 10/06/16 16:00 91 10/06/16 16:00 97.8 91 18 114/59 97 Mechanical Ventilator 28 10/06/16 15:18 101 17 28 10/06/16 13:00 102 15 28 10/06/16 12:40 97.5 10/06/16 12:24 120 18 99 Mechanical Ventilator 28 10/06/16 12:00 98.1 107 18 99/65 97 Mechanical Ventilator 28 10/06/16 12:00 120 10/06/16 12:00 28 10/06/16 12:00 124 18 100 Mechanical Ventilator 28 10/06/16 12:00 28 10/06/16 11:20 120 18 28 Intake and Output 10/06/16 10/07/16 19:00 07:00 Intake Total 1097 ml 1130 ml Output Total 650 ml 925 ml Balance 447 ml 205 ml Free Water 200 ml IV Total 377 ml 270 ml Tube Feeding 720 ml 660 ml Output Urine Total 650 ml 925 ml # Bowel Movements 2 Objective Status: awake HEENT: atraumatic, normocephalic Lungs: clear, decreased breath sounds Heart: HR/BP stable Abdomen: soft, non-tender Extremities: no C/C/E, edema General Appearance: cachetic Laboratory Tests 10/06/16 11:50: Stool Occult Blood [Pending] 10/07/16 04:15: White Blood Count 14.2H, Red Blood Count 2.99L, Hemoglobin 8.3L, Hematocrit 27.2L, Mean Corpuscular Volume 91, Mean Corpuscular Hemoglobin 27.6, Mean Corpuscular Hemoglobin Concent 30.4L, Red Cell Distribution Width 15.7H, Platelet Count 305, Mean Platelet Volume 6.8, Neutrophils (%) (Auto) , Lymphocytes (%) (Auto) , Monocytes (%) (Auto) , Eosinophils (%) (Auto) , Basophils (%) (Auto) , Sodium Level 140, Potassium Level 3.4, Chloride Level 94L , Carbon Dioxide Level 38H, Anion Gap 8, Blood Urea Nitrogen 8, Creatinine 0.4L , Estimat Glomerular Filtration Rate > 60, Glucose Level 152H, Calcium Level 8.5L Current Medications Medications (Trade) Dose Ordered Sig/Shraddha Route PRN Reason Start Time Stop Time Status Last Admin Dose Admin Acetaminophen (Tylenol) 650 mg Q4H PRN ORAL fever>100.5 10/05/16 11:30 11/04/16 11:29 Albuterol/ Ipratropium (DuoNeb 0.5-3(2.5)mg/3ml) 3 ml Q4H PRN HHN Shortness of Breath 10/05/16 11:30 10/10/16 11:29 10/07/16 03:22 Ceftazidime 2 gm/ Dextrose 110 ml @ 220 mls/hr Q8HR IV 10/05/16 14:00 10/12/16 13:59 10/07/16 05:58 Dextrose (Dextrose 50%) STAT PRN IV Hypoglycemia 10/05/16 11:30 11/04/16 11:29 Insulin Aspart (NovoLOG) start when feeding started Q6HR SUBQ 10/05/16 12:00 11/04/16 11:59 10/07/16 05:59 Iron Sucrose/ Sodium Chloride (Venofer/Sodium Chloride) 60 ml @ 240 mls/hr BEDTIME IVPB 10/06/16 21:00 10/10/16 21:14 10/06/16 22:08 Lorazepam (Ativan 2mg/ml 1ml) 1 mg Q4H PRN IV For Anxiety 10/05/16 11:30 10/12/16 11:29 10/07/16 04:05 Metronidazole (Flagyl) 100 ml @ 100 mls/hr Q8HR IVPB 10/05/16 14:00 10/12/16 13:59 10/07/16 05:58 Morphine Sulfate (Morphine Sulfate) 4 mg Q4H PRN IVP Pain 4-10 10/05/16 11:30 10/12/16 11:29 10/06/16 12:09 Ondansetron HCl (Zofran) 4 mg Q6H PRN IVP Nausea & Vomiting 10/05/16 11:30 11/04/16 11:29 Pantoprazole (Protonix) 40 mg DAILY IVP 10/06/16 09:00 11/05/16 08:59 10/07/16 09:42 Polyethylene Glycol 17 gm 17 gm DAILYPRN PRN ORAL Constipation 10/05/16 11:30 11/04/16 11:29 REN WRIGHT Oct 07, 2016 10:52
[2016-10-07] MEDS: Morphine Sulfate 4mg/ml Inj IVP PRN ×2 (11:24→17:48)
--- NOTE | 2016-10-07 11:31 | Infectious Diseases Prog Note ---
Assessment/Plan Assessment/Plan ASSESSMENT: 66 y/o male with: // COPD exacerbation - delayed SCx 4+ PSA pt has increased secretions - CXR 09/27: Lungs are hyperinflated. No new infiltrates - negative: influenza // Leukocytosis - improving ( post op, 10/01 SP steroids ) // Diarrhea x 1 resolved // afebrile // HIV and Hep B/C : neg // - PEG 10/04 // Acute VDRF - intubated 09/20, 10/03 SP trach // Severe pulmonary HTN / grade I diastolic dysfunction / mod TR // Pulmonary nodules // Chronic RLE DVT // Tobacco abuse // [facility] resident // Negative MRSA, VRE screens // NKDA // Full Code PLAN: - on Jairon nebs d# 8 / , add Ceftazidime d# / cont Flagyl d# 6 ( 10/04 SP oral Vanco d# 3 ) ( 09/24 SP amikacin, invanz d# 5 / 5 ) ( 09/21 SP IV vancomycin d# 2 ) - taper steroids per pulm - monitor CBC, temperatures - monitor BMP - monitor CXR - vent support, wean as tolerated. - Monitor cx ( Bl, ) Subjective Constitutional: Denies: anorexia, chills, drenching sweats, fatigue, fever, no symptoms, other Allergies: Coded Allergies: No Known Allergies (Unverified , 06/17/16) Objective Vital Signs Last 24 Hour Vital Signs Date Time Temp Pulse Resp B/P Pulse Ox O2 Delivery O2 Flow Rate FiO2 10/07/16 11:08 99 18 28 10/07/16 09:22 101 18 28 10/07/16 08:45 97.7 103 20 117/81 98 Mechanical Ventilator 28 10/07/16 08:00 102 10/07/16 08:00 104 Mechanical Ventilator 10/07/16 08:00 28 10/07/16 07:26 101 18 28 10/07/16 04:45 110 18 28 10/07/16 04:00 28 10/07/16 04:00 97.3 104 22 88/63 97 Mechanical Ventilator 104 10/07/16 04:00 105 10/07/16 03:25 108 16 100 Mechanical Ventilator 28 10/07/16 03:23 100 10/07/16 03:23 108 18 100 Mechanical Ventilator 28 10/07/16 03:22 107 18 28 10/07/16 00:46 105 18 28 10/07/16 00:00 97.3 92 18 107/66 99 Mechanical Ventilator 28 10/07/16 00:00 106 10/07/16 00:00 28 10/06/16 23:04 109 16 100 Mechanical Ventilator 28 10/06/16 23:01 107 16 100 Mechanical Ventilator 28 10/06/16 23:01 100 10/06/16 22:57 107 16 28 10/06/16 20:44 104 16 28 10/06/16 20:00 109 10/06/16 20:00 28 10/06/16 20:00 97.7 91 18 118/81 98 Mechanical Ventilator 28 10/06/16 18:44 111 16 28 10/06/16 17:50 102 17 28 10/06/16 16:00 28 10/06/16 16:00 91 10/06/16 16:00 97.8 91 18 114/59 97 Mechanical Ventilator 28 10/06/16 15:18 101 17 28 10/06/16 13:00 102 15 28 10/06/16 12:40 97.5 10/06/16 12:24 120 18 99 Mechanical Ventilator 28 10/06/16 12:00 98.1 107 18 99/65 97 Mechanical Ventilator 28 10/06/16 12:00 120 10/06/16 12:00 28 10/06/16 12:00 124 18 100 Mechanical Ventilator 28 10/06/16 12:00 28 Height (Feet): 6 Height (Inches): 2.00 Weight (Pounds): 126 HEENT: anicteric Respiratory/Chest: no respiratory distress Cardiovascular: regular rhythm Abdomen: no organomegaly Laboratory Tests Test 10/06/16 11:50 10/07/16 04:15 Stool Occult Blood Pending White Blood Count 14.2 K/UL (4.8-10.8) H Red Blood Count 2.99 M/UL (4.70-6.10) L Hemoglobin 8.3 G/DL (14.2-18.0) L Hematocrit 27.2 % (42.0-52.0) L Mean Corpuscular Volume 91 FL (80-99) Mean Corpuscular Hemoglobin 27.6 PG (27.0-31.0) Mean Corpuscular Hemoglobin Concent 30.4 G/DL (32.0-36.0) L Red Cell Distribution Width 15.7 % (11.6-14.8) H Platelet Count 305 K/UL (150-450) Mean Platelet Volume 6.8 FL (6.5-10.1) Neutrophils (%) (Auto) % (45.0-75.0) Lymphocytes (%) (Auto) % (20.0-45.0) Monocytes (%) (Auto) % (1.0-10.0) Eosinophils (%) (Auto) % (0.0-3.0) Basophils (%) (Auto) % (0.0-2.0) Sodium Level 140 mEQ/L (135-145) Potassium Level 3.4 mEQ/L (3.4-4.9) Chloride Level 94 mEQ/L (98-107) L Carbon Dioxide Level 38 mEQ/L (20-30) H Anion Gap 8 (5-15) Blood Urea Nitrogen 8 mg/dL (7-23) Creatinine 0.4 mg/dL (0.7-1.2) L Estimat Glomerular Filtration Rate > 60 mL/min (>60) Glucose Level 152 mg/dL (74-106) H Calcium Level 8.5 mg/dL (8.6-10.2) L Current Medications Medications (Trade) Dose Ordered Sig/Shraddha Route PRN Reason Start Time Stop Time Status Last Admin Dose Admin Acetaminophen (Tylenol) 650 mg Q4H PRN ORAL fever>100.5 10/05/16 11:30 11/04/16 11:29 Albuterol/ Ipratropium (DuoNeb 0.5-3(2.5)mg/3ml) 3 ml Q4H PRN HHN Shortness of Breath 10/05/16 11:30 10/10/16 11:29 10/07/16 03:22 Ceftazidime 2 gm/ Dextrose 110 ml @ 220 mls/hr Q8HR IV 10/05/16 14:00 10/12/16 13:59 10/07/16 05:58 Dextrose (Dextrose 50%) STAT PRN IV Hypoglycemia 10/05/16 11:30 11/04/16 11:29 Insulin Aspart (NovoLOG) start when feeding started Q6HR SUBQ 10/05/16 12:00 11/04/16 11:59 10/07/16 05:59 Iron Sucrose/ Sodium Chloride (Venofer/Sodium Chloride) 60 ml @ 240 mls/hr BEDTIME IVPB 10/06/16 21:00 10/10/16 21:14 10/06/16 22:08 Lorazepam (Ativan 2mg/ml 1ml) 1 mg Q4H PRN IV For Anxiety 10/05/16 11:30 10/12/16 11:29 10/07/16 04:05 Metronidazole (Flagyl) 100 ml @ 100 mls/hr Q8HR IVPB 10/05/16 14:00 10/12/16 13:59 10/07/16 05:58 Morphine Sulfate (Morphine Sulfate) 4 mg Q4H PRN IVP Pain 4-10 10/05/16 11:30 10/12/16 11:29 10/07/16 11:24 Ondansetron HCl (Zofran) 4 mg Q6H PRN IVP Nausea & Vomiting 10/05/16 11:30 11/04/16 11:29 Pantoprazole (Protonix) 40 mg DAILY IVP 10/06/16 09:00 11/05/16 08:59 10/07/16 09:42 Polyethylene Glycol 17 gm 17 gm DAILYPRN PRN ORAL Constipation 10/05/16 11:30 11/04/16 11:29 KIMBERLEE HINKLE M.D. Oct 07, 2016 11:31
--- NOTE | 2016-10-07 11:34 | Internal Med Progress Note ---
Subjective Date of Service: Oct 07, 2016 Physician Name Tadeo Verdin Attending Physician Steve Rader MD Current Medications Medications (Trade) Dose Ordered Sig/Shraddha Route PRN Reason Start Time Stop Time Status Last Admin Dose Admin Acetaminophen (Tylenol) 650 mg Q4H PRN ORAL fever>100.5 10/05/16 11:30 11/04/16 11:29 Albuterol/ Ipratropium (DuoNeb 0.5-3(2.5)mg/3ml) 3 ml Q4H PRN HHN Shortness of Breath 10/05/16 11:30 10/10/16 11:29 10/07/16 03:22 Ceftazidime 2 gm/ Dextrose 110 ml @ 220 mls/hr Q8HR IV 10/05/16 14:00 10/12/16 13:59 10/07/16 05:58 Dextrose (Dextrose 50%) STAT PRN IV Hypoglycemia 10/05/16 11:30 11/04/16 11:29 Insulin Aspart (NovoLOG) start when feeding started Q6HR SUBQ 10/05/16 12:00 11/04/16 11:59 10/07/16 05:59 Iron Sucrose/ Sodium Chloride (Venofer/Sodium Chloride) 60 ml @ 240 mls/hr BEDTIME IVPB 10/06/16 21:00 10/10/16 21:14 10/06/16 22:08 Lorazepam (Ativan 2mg/ml 1ml) 1 mg Q4H PRN IV For Anxiety 10/05/16 11:30 10/12/16 11:29 10/07/16 04:05 Metronidazole (Flagyl) 100 ml @ 100 mls/hr Q8HR IVPB 10/05/16 14:00 10/12/16 13:59 10/07/16 05:58 Morphine Sulfate (Morphine Sulfate) 4 mg Q4H PRN IVP Pain 4-10 10/05/16 11:30 10/12/16 11:29 10/07/16 11:24 Ondansetron HCl (Zofran) 4 mg Q6H PRN IVP Nausea & Vomiting 10/05/16 11:30 11/04/16 11:29 Pantoprazole (Protonix) 40 mg DAILY IVP 10/06/16 09:00 11/05/16 08:59 10/07/16 09:42 Polyethylene Glycol 17 gm 17 gm DAILYPRN PRN ORAL Constipation 10/05/16 11:30 11/04/16 11:29 Allergies: Coded Allergies: No Known Allergies (Unverified , 06/17/16) ROS Limited/Unobtainable: Yes Subjective 66 YO M admitted with respiratory failure. JORDAN. Intubated and sedated. S/P tracheostomy 10/03/16. S/P PEG 10/04/16. Cover for Int [facility]-Dr Rader. Objective Last Vital Signs Date Time Temp Pulse Resp B/P Pulse Ox O2 Delivery O2 Flow Rate FiO2 10/07/16 11:08 99 18 28 10/07/16 08:45 97.7 117/81 98 Mechanical Ventilator Laboratory Tests Test 10/06/16 11:50 10/07/16 04:15 Stool Occult Blood Pending White Blood Count 14.2 K/UL (4.8-10.8) H Red Blood Count 2.99 M/UL (4.70-6.10) L Hemoglobin 8.3 G/DL (14.2-18.0) L Hematocrit 27.2 % (42.0-52.0) L Mean Corpuscular Volume 91 FL (80-99) Mean Corpuscular Hemoglobin 27.6 PG (27.0-31.0) Mean Corpuscular Hemoglobin Concent 30.4 G/DL (32.0-36.0) L Red Cell Distribution Width 15.7 % (11.6-14.8) H Platelet Count 305 K/UL (150-450) Mean Platelet Volume 6.8 FL (6.5-10.1) Neutrophils (%) (Auto) % (45.0-75.0) Lymphocytes (%) (Auto) % (20.0-45.0) Monocytes (%) (Auto) % (1.0-10.0) Eosinophils (%) (Auto) % (0.0-3.0) Basophils (%) (Auto) % (0.0-2.0) Sodium Level 140 mEQ/L (135-145) Potassium Level 3.4 mEQ/L (3.4-4.9) Chloride Level 94 mEQ/L (98-107) L Carbon Dioxide Level 38 mEQ/L (20-30) H Anion Gap 8 (5-15) Blood Urea Nitrogen 8 mg/dL (7-23) Creatinine 0.4 mg/dL (0.7-1.2) L Estimat Glomerular Filtration Rate > 60 mL/min (>60) Glucose Level 152 mg/dL (74-106) H Calcium Level 8.5 mg/dL (8.6-10.2) L Intake and Output 10/06/16 10/07/16 18:59 06:59 Intake Total 1247 ml 1190 ml Output Total 650 ml 925 ml Balance 597 ml 265 ml Free Water 200 ml IV Total 527 ml 270 ml Tube Feeding 720 ml 720 ml Output Urine Total 650 ml 925 ml # Bowel Movements 2 Objective General Appearance: moderate distress, thin EENT: PERRL/EOMI, normal ENT inspection Neck: non-tender, normal alignment, supple Cardiovascular: normal peripheral pulses, normal rate, regular rhythm, no gallop/murmur, no JVD Respiratory/Chest: Mech Vent; trach; respiratory distress, crackles/rales, rhonchi - bilaterally, expiratory wheezing Abdomen: non tender, soft, no organomegaly, no mass, decreased bowel sounds Extremities: normal range of motion Skin: normal pigmentation, warm/dry Assessment/Plan Problem List: (1) Lung nodule (2) DVT (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 (3) Acute respiratory failure Assessment & Plan: S/P tracheostomy 10/03/16. Cont vent per pulmonary (4) COPD exacerbation Assessment & Plan: Continue duoneb. Continue vent per pulmonary. (5) Pneumonia Assessment & Plan: continue ceftazidime and IV flagyl per ID-continue tobramycin nebs (6) Leukocytosis Assessment & Plan: Continue PO vanco and IV flagyl per ID. (7) Dysphagia Assessment & Plan: See GI consult- S/P PEG 10/04/16. Status: not improved Assessment/Plan Discharge Planning: nursing home acute care facility TADEO VERDIN Oct 07, 2016 11:34
--- NOTE | 2016-10-07 11:51 | General Progress Note ---
Assessment/Plan Assessment/Plan Assessment - abnormal LFT - Leukocytosis - COPD - respiratory failure - s/p trach and PEG - dysphagia Recommendations - check abd u/s -- await reading - follow LFT - check hep serologies --negative Subjective Allergies: Coded Allergies: No Known Allergies (Unverified , 06/17/16) Subjective above noted out of ICU tolerating TF rising LFT noted Objective Last 24 Hour Vital Signs Date Time Temp Pulse Resp B/P Pulse Ox O2 Delivery O2 Flow Rate FiO2 10/07/16 11:08 99 18 28 10/07/16 09:22 101 18 28 10/07/16 08:45 97.7 103 20 117/81 98 Mechanical Ventilator 28 10/07/16 08:00 102 10/07/16 08:00 104 Mechanical Ventilator 10/07/16 08:00 28 10/07/16 07:26 101 18 28 10/07/16 04:45 110 18 28 10/07/16 04:00 28 10/07/16 04:00 97.3 104 22 88/63 97 Mechanical Ventilator 104 10/07/16 04:00 105 10/07/16 03:25 108 16 100 Mechanical Ventilator 28 10/07/16 03:23 100 10/07/16 03:23 108 18 100 Mechanical Ventilator 28 10/07/16 03:22 107 18 28 10/07/16 00:46 105 18 28 10/07/16 00:00 97.3 92 18 107/66 99 Mechanical Ventilator 28 10/07/16 00:00 106 10/07/16 00:00 28 10/06/16 23:04 109 16 100 Mechanical Ventilator 28 10/06/16 23:01 107 16 100 Mechanical Ventilator 28 10/06/16 23:01 100 10/06/16 22:57 107 16 28 10/06/16 20:44 104 16 28 10/06/16 20:00 109 10/06/16 20:00 28 10/06/16 20:00 97.7 91 18 118/81 98 Mechanical Ventilator 28 10/06/16 18:44 111 16 28 10/06/16 17:50 102 17 28 10/06/16 16:00 28 10/06/16 16:00 91 10/06/16 16:00 97.8 91 18 114/59 97 Mechanical Ventilator 28 10/06/16 15:18 101 17 28 10/06/16 13:00 102 15 28 10/06/16 12:40 97.5 10/06/16 12:24 120 18 99 Mechanical Ventilator 28 10/06/16 12:00 98.1 107 18 99/65 97 Mechanical Ventilator 28 10/06/16 12:00 120 10/06/16 12:00 28 10/06/16 12:00 124 18 100 Mechanical Ventilator 28 10/06/16 12:00 28 Intake and Output 10/06/16 10/07/16 19:00 07:00 Intake Total 1097 ml 1130 ml Output Total 650 ml 925 ml Balance 447 ml 205 ml Free Water 200 ml IV Total 377 ml 270 ml Tube Feeding 720 ml 660 ml Output Urine Total 650 ml 925 ml # Bowel Movements 2 Laboratory Tests 10/06/16 11:50: Stool Occult Blood [Pending] 10/07/16 04:15: White Blood Count 14.2H, Red Blood Count 2.99L, Hemoglobin 8.3L, Hematocrit 27.2L, Mean Corpuscular Volume 91, Mean Corpuscular Hemoglobin 27.6, Mean Corpuscular Hemoglobin Concent 30.4L, Red Cell Distribution Width 15.7H, Platelet Count 305, Mean Platelet Volume 6.8, Neutrophils (%) (Auto) , Lymphocytes (%) (Auto) , Monocytes (%) (Auto) , Eosinophils (%) (Auto) , Basophils (%) (Auto) , Sodium Level 140, Potassium Level 3.4, Chloride Level 94L , Carbon Dioxide Level 38H, Anion Gap 8, Blood Urea Nitrogen 8, Creatinine 0.4L , Estimat Glomerular Filtration Rate > 60, Glucose Level 152H, Calcium Level 8.5L Height (Feet): 6 Height (Inches): 2.00 Weight (Pounds): 126 Objective Elderly AA man NCAT (+) trach Coarse BS RRR soft NT abdomen, (+) GT (+) UE edema responsive ROSEMARY BURROUGHS Oct 07, 2016 11:51
[2016-10-07 12:00] VITALS: BP 118/75
--- NOTE | 2016-10-07 12:46 | Diagnostic Imaging Report ---
Indication: Abnormal liver function tests and renal function tests Technique: Thomas-scale and duplex images of the upper abdomen were obtained Comparison: Reference made to CT chest abdomen pelvis of 06/20/2016 Findings: Exam is limited by body habitus. There is trace ascites. There are small bilateral pleural effusions. There is a small pericardial effusion. Gallbladder demonstrates possible polyps and wall calcification. There is sludge, tiny stones are not excludable. Gallbladder wall is mildly thickened, measuring 3 mm in thickness.. Sonographic Rojas's sign is negative. Common bile duct measures 4 mm in diameter. No intrahepatic biliary ductal dilatation. Liver demonstrates normal echogenicity, no focal abnormality. Note, however, that the tip of the left hepatic lobe is obscured by bowel gas. Liver is borderline enlarged. Portal vein and hepatic veins are patent.. Pancreas is unremarkable. Spleen is unremarkable. Left kidney measures 10.3 cm in length. Right kidney measures 11.8 cm length. Both kidneys demonstrate normal echogenicity. There is no hydronephrosis. No focal abnormality. . Abdominal aorta is partially obscured by bowel gas, visualized portions are non-aneurysmal. Impression: Trace ascites Small bilateral pleural effusions Small pericardial effusion Gallbladder sludge and possible small stones. Borderline thickened gallbladder wall, most likely due to whatever process is causing the ascites, pleural pericardial fluid. Acute cholecystitis not completely excludable however, and hepatobiliary nuclear scan should be considered if there is high clinical suspicion Negative for dilated ducts Somewhat limited exam as described, with lack of visualization of portions of the abdominal aorta and left hepatic lobe Borderline hepatomegaly This agrees with the preliminary interpretation provided overnight by Dr. Henriquez
--- NOTE | 2016-10-07 15:49 | Diagnostic Imaging Report ---
Indication: SOB Technique: One view of the chest Comparison: 10/06/2016 Findings: Lungs are hyperinflated. Lungs and pleural spaces remain clear. Heart size is normal. Tracheostomy remains. No significant change Impression: Unchanged, over one day, findings as above.
[2016-10-07 16:00] VITALS: BP 103/69
[2016-10-07] MEDS ORDERED: NS 275ml ONE (16:09)
[2016-10-07] MEDS ORDERED: D5W 275ml ONE (16:09)
[2016-10-07] MEDS ORDERED: Tubing IV Secondary IV ONE (16:09)
[2016-10-07 19:00] VITALS: BP 111/75
[2016-10-07] MEDS: Iron Sucrose 100 MG in NS 55 ML IVPB SCH (20:09)
[2016-10-07] MEDS: Tobramycin for inhalation INH SCH (22:28)
[2016-10-08] MEDS: Morphine Sulfate 4mg/ml Inj IVP PRN (00:06)
[2016-10-08] MEDS: NovoLOG Insulin Flexpen SUBQ SCH ×4 (00:24→18:02)
[2016-10-08 00:40] VITALS: BP 103/68
[2016-10-08 04:00] VITALS: BP 148/87
[2016-10-08] MEDS: CefTAZidime 2 GM in D5W 110 ML IV SCH ×3 (05:00→21:42)
[2016-10-08 05:44] LABS: MEAN CORPUSCULAR HEMOGLOBIN 27.7 PG (27.0-31.0); MEAN CORPUSCULAR HGB CONC 30.4 G/DL (32.0-36.0); MEAN CORPUSCULAR VOLUME 91 FL (80-99); MEAN PLATELET VOLUME 6.5 FL (6.5-10.1); PLATELET COUNT 333 K/UL (150-450); RED BLOOD COUNT 3.08 M/UL (4.70-6.10); RED CELL DISTRIBUTION WIDTH 15.8 % (11.6-14.8); WHITE BLOOD COUNT 14.6 K/UL (4.8-10.8)
[2016-10-08] MEDS: metroNIDAZOLE 500mg 100 ML IVPB SCH ×3 (05:46→22:28)
[2016-10-08 06:02] LABS: ALANINE AMINOTRANSFERASE 25 U/L (3-41); ALBUMIN/GLOBULIN RATIO 0.6 (1.0-2.7); ANION GAP 7 (5-15); ASPARTATE AMINO TRANSFERASE 11 U/L (5-40); CALCIUM 8.6 mg/dL (8.6-10.2); CARBON DIOXIDE 40 mEQ/L (20-30); CHLORIDE 95 mEQ/L (98-107); CREATININE 0.4 mg/dL (0.7-1.2); GLOMERULAR FILTRATION RATE > 60 mL/min (>60); HEMOLYSIS 0; POTASSIUM 3.4 mEQ/L (3.4-4.9); SODIUM 142 mEQ/L (135-145); TOTAL PROTEIN 5.9 g/dL (6.6-8.7)
[2016-10-08 08:00] VITALS: BP 106/78
[2016-10-08] MEDS: Pantoprazole Inj IVP SCH (09:36)
[2016-10-08] MEDS: Tobramycin for inhalation INH SCH ×2 (09:48→23:15)
--- NOTE | 2016-10-08 11:14 | Pulmonology Progress Note ---
Assessment/Plan Problems: (1) Respiratory failure (2) COPD exacerbation (3) Emphysema of lung Respiratory: monitor respiratory rate, adjust FIO2, CXR Cardiac: continue to monitor HR/BP Renal: F/U I&O Infectious Disease: check cultures Gastrointestinal: continue feedings/current rate Endocrine: monitor blood sugar, check HgA1C, continue sliding scale insulin Hematologic: transfuse if hgb<8.5 Neurologic: PRN Ativan, PRN Morphine, keep patient comfortable Affect: PRN ativan Prophylaxis: Protonix Notes Reviewed: rehabilitation counsellor, renal 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, consultants, onsite case manager Subjective ROS Limited/Unobtainable: No Constitutional: Reports: no symptoms HEENT: Repors: no symptoms Respiratory: Reports: no symptoms Allergies: Coded Allergies: No Known Allergies (Unverified , 06/17/16) Objective Last 24 Hour Vital Signs Date Time Temp Pulse Resp B/P Pulse Ox O2 Delivery O2 Flow Rate FiO2 10/08/16 09:48 101 18 100 Mechanical Ventilator 40 10/08/16 09:48 40 10/08/16 09:00 101 18 40 10/08/16 08:00 95 10/08/16 08:00 40 10/08/16 08:00 99.1 104 18 106/78 100 10/08/16 07:30 100 18 40 10/08/16 04:56 115 20 40 10/08/16 04:00 40 10/08/16 04:00 98.0 106 19 148/87 100 Mechanical Ventilator 40 10/08/16 04:00 98.0 106 19 148/87 100 Mechanical Ventilator 40 10/08/16 04:00 117 10/08/16 03:19 117 16 40 10/08/16 00:40 101 16 40 10/08/16 00:40 97.4 65 23 103/68 98 Mechanical Ventilator 40 10/08/16 00:00 40 10/07/16 23:50 107 10/07/16 22:33 104 16 40 10/07/16 22:30 105 16 100 Mechanical Ventilator 40 10/07/16 22:00 104 16 100 Mechanical Ventilator 40 10/07/16 20:38 98 17 40 10/07/16 20:31 97 10/07/16 20:00 28 10/07/16 19:00 97.9 96 20 111/75 100 Mechanical Ventilator 28 10/07/16 18:27 102 19 28 10/07/16 18:00 100.0 10/07/16 17:00 105 19 28 10/07/16 16:00 100.0 100 20 103/69 100 Mechanical Ventilator 28 10/07/16 16:00 108 10/07/16 16:00 28 10/07/16 15:13 105 18 28 10/07/16 12:52 102 16 100 Mechanical Ventilator 28 10/07/16 12:43 100 18 100 Mechanical Ventilator 28 10/07/16 12:43 100 18 28 10/07/16 12:43 100 10/07/16 12:00 97.5 96 20 118/75 96 Mechanical Ventilator 96 10/07/16 12:00 96 10/07/16 12:00 28 Intake and Output 10/07/16 10/08/16 19:00 07:00 Intake Total 920 ml 1020 ml Output Total 400 ml Balance 520 ml 1020 ml Free Water 200 ml 200 ml IV Total 100 ml Tube Feeding 720 ml 720 ml Output Urine Total 400 ml Objective Status: awake HEENT: atraumatic, normocephalic Lungs: clear, decreased breath sounds Heart: HR/BP stable Abdomen: soft, non-tender Extremities: no C/C/E, edema Laboratory Tests 10/07/16 16:05: RBC Folate Hemolysate [Pending], Red Blood Cell Folate [Pending] 10/08/16 03:45: White Blood Count 14.6H, Red Blood Count 3.08L, Hemoglobin 8.5L, Hematocrit 28.1L, Mean Corpuscular Volume 91, Mean Corpuscular Hemoglobin 27.7, Mean Corpuscular Hemoglobin Concent 30.4L, Red Cell Distribution Width 15.8H, Platelet Count 333, Mean Platelet Volume 6.5, Neutrophils (%) (Auto) , Lymphocytes (%) (Auto) , Monocytes (%) (Auto) , Eosinophils (%) (Auto) , Basophils (%) (Auto) , Sodium Level 142, Potassium Level 3.4, Chloride Level 95L , Carbon Dioxide Level 40H, Anion Gap 7, Blood Urea Nitrogen 10, Creatinine 0.4L , Estimat Glomerular Filtration Rate > 60, Glucose Level 178H, Calcium Level 8.6 , Total Bilirubin 0.2, Aspartate Amino Transf (AST/SGOT) 11, Alanine Aminotransferase (ALT/SGPT) 25, Alkaline Phosphatase 101, Total Creatine Kinase 17L, Total Protein 5.9L, Albumin 2.4L, Globulin 3.5, Albumin/Globulin Ratio 0.6L Current Medications Medications (Trade) Dose Ordered Sig/Shraddha Route PRN Reason Start Time Stop Time Status Last Admin Dose Admin Acetaminophen (Tylenol) 650 mg Q4H PRN ORAL fever>100.5 10/05/16 11:30 11/04/16 11:29 Albuterol/ Ipratropium (DuoNeb 0.5-3(2.5)mg/3ml) 3 ml Q4H PRN HHN Shortness of Breath 10/05/16 11:30 10/10/16 11:29 10/07/16 12:43 Ceftazidime 2 gm/ Dextrose 110 ml @ 220 mls/hr Q8HR IV 10/05/16 14:00 10/12/16 13:59 10/08/16 05:00 Dextrose (Dextrose 50%) STAT PRN IV Hypoglycemia 10/05/16 11:30 11/04/16 11:29 Insulin Aspart (NovoLOG) start when feeding started Q6HR SUBQ 10/05/16 12:00 11/04/16 11:59 10/08/16 05:47 Iron Sucrose/ Sodium Chloride (Venofer/Sodium Chloride) 60 ml @ 240 mls/hr BEDTIME IVPB 10/06/16 21:00 10/10/16 21:14 10/07/16 20:09 Lorazepam (Ativan 2mg/ml 1ml) 1 mg Q4H PRN IV For Anxiety 10/05/16 11:30 10/12/16 11:29 10/07/16 04:05 Metronidazole (Flagyl) 100 ml @ 100 mls/hr Q8HR IVPB 10/05/16 14:00 10/12/16 13:59 10/08/16 05:46 Morphine Sulfate (Morphine Sulfate) 4 mg Q4H PRN IVP Pain 4-10 10/05/16 11:30 10/12/16 11:29 10/08/16 00:06 Ondansetron HCl (Zofran) 4 mg Q6H PRN IVP Nausea & Vomiting 10/05/16 11:30 11/04/16 11:29 Pantoprazole (Protonix) 40 mg DAILY IVP 10/06/16 09:00 11/05/16 08:59 10/08/16 09:36 Polyethylene Glycol 17 gm 17 gm DAILYPRN PRN ORAL Constipation 10/05/16 11:30 11/04/16 11:29 Tobramycin Sulfate (Nebcin) 300 mg Q12HR@10,22 INH 10/07/16 22:00 10/14/16 21:59 10/08/16 09:48 REN WRIGHT Oct 08, 2016 11:14
[2016-10-08 12:00] VITALS: BP 138/88
--- NOTE | 2016-10-08 12:17 | Diagnostic Imaging Report ---
Indication: DYSPNEA Technique: One view of the chest Comparison: 10/07/2016 Findings: Tracheostomy remains. Lungs are hyperinflated. No new infiltrates. Normal heart size. Findings are unchanged Impression: Unchanged, over one day, findings as above.
--- NOTE | 2016-10-08 12:20 | Infectious Diseases Prog Note ---
Assessment/Plan Assessment/Plan ASSESSMENT: 66 y/o male with: // COPD exacerbation - delayed SCx 4+ PSA pt has increased secretions - CXR 09/27: Lungs are hyperinflated. No new infiltrates - negative: influenza // Leukocytosis - improving over-all ( post op, 10/01 SP steroids ) // Diarrhea x 1 resolved // Febrile low grade // HIV and Hep B/C : neg // - PEG 10/04 // Acute VDRF - intubated 09/20, 10/03 SP trach // Severe pulmonary HTN / grade I diastolic dysfunction / mod TR // Pulmonary nodules // Chronic RLE DVT // Tobacco abuse // [facility] resident // Negative MRSA, VRE screens // NKDA // Full Code PLAN: - on Jairon nebs d# 9 / , add Ceftazidime d# 6 / 14 cont Flagyl d# 7 ( 10/04 SP oral Vanco d# 3 ) ( 09/24 SP amikacin, invanz d# 5 / 5 ) ( 09/21 SP IV vancomycin d# 2 ) - taper steroids per pulm - monitor CBC, temperatures - monitor BMP - monitor CXR - vent support, wean as tolerated. - Monitor cx ( Bl, ) Subjective Constitutional: Reports: fever - low grade , Denies: anorexia, chills, drenching sweats, fatigue, no symptoms, other Allergies: Coded Allergies: No Known Allergies (Unverified , 06/17/16) Objective Vital Signs Last 24 Hour Vital Signs Date Time Temp Pulse Resp B/P Pulse Ox O2 Delivery O2 Flow Rate FiO2 10/08/16 11:56 40 10/08/16 11:56 89 10/08/16 11:29 111 19 40 10/08/16 10:02 101 18 100 Mechanical Ventilator 40 10/08/16 09:48 101 18 100 Mechanical Ventilator 40 10/08/16 09:48 40 10/08/16 09:00 101 18 40 10/08/16 08:00 95 10/08/16 08:00 40 10/08/16 08:00 99.1 104 18 106/78 100 10/08/16 07:30 100 18 40 10/08/16 04:56 115 20 40 10/08/16 04:00 40 10/08/16 04:00 98.0 106 19 148/87 100 Mechanical Ventilator 40 10/08/16 04:00 98.0 106 19 148/87 100 Mechanical Ventilator 40 10/08/16 04:00 117 10/08/16 03:19 117 16 40 10/08/16 00:40 101 16 40 10/08/16 00:40 97.4 65 23 103/68 98 Mechanical Ventilator 40 10/08/16 00:00 40 10/07/16 23:50 107 10/07/16 22:33 104 16 40 10/07/16 22:30 105 16 100 Mechanical Ventilator 40 10/07/16 22:00 104 16 100 Mechanical Ventilator 40 10/07/16 20:38 98 17 40 10/07/16 20:31 97 10/07/16 20:00 28 10/07/16 19:00 97.9 96 20 111/75 100 Mechanical Ventilator 28 10/07/16 18:27 102 19 28 10/07/16 18:00 100.0 10/07/16 17:00 105 19 28 10/07/16 16:00 100.0 100 20 103/69 100 Mechanical Ventilator 28 10/07/16 16:00 108 10/07/16 16:00 28 10/07/16 15:13 105 18 28 10/07/16 12:52 102 16 100 Mechanical Ventilator 28 10/07/16 12:43 100 18 100 Mechanical Ventilator 28 10/07/16 12:43 100 18 28 10/07/16 12:43 100 Height (Feet): 6 Height (Inches): 2.00 Weight (Pounds): 126 HEENT: mucous membranes moist Respiratory/Chest: no respiratory distress Cardiovascular: regularly irregular Abdomen: no organomegaly Laboratory Tests Test 10/07/16 16:05 10/08/16 03:45 RBC Folate Hemolysate Pending Red Blood Cell Folate Pending White Blood Count 14.6 K/UL (4.8-10.8) H Red Blood Count 3.08 M/UL (4.70-6.10) L Hemoglobin 8.5 G/DL (14.2-18.0) L Hematocrit 28.1 % (42.0-52.0) L Mean Corpuscular Volume 91 FL (80-99) Mean Corpuscular Hemoglobin 27.7 PG (27.0-31.0) Mean Corpuscular Hemoglobin Concent 30.4 G/DL (32.0-36.0) L Red Cell Distribution Width 15.8 % (11.6-14.8) H Platelet Count 333 K/UL (150-450) Mean Platelet Volume 6.5 FL (6.5-10.1) Neutrophils (%) (Auto) % (45.0-75.0) Lymphocytes (%) (Auto) % (20.0-45.0) Monocytes (%) (Auto) % (1.0-10.0) Eosinophils (%) (Auto) % (0.0-3.0) Basophils (%) (Auto) % (0.0-2.0) Sodium Level 142 mEQ/L (135-145) Potassium Level 3.4 mEQ/L (3.4-4.9) Chloride Level 95 mEQ/L (98-107) L Carbon Dioxide Level 40 mEQ/L (20-30) H Anion Gap 7 (5-15) Blood Urea Nitrogen 10 mg/dL (7-23) Creatinine 0.4 mg/dL (0.7-1.2) L Estimat Glomerular Filtration Rate > 60 mL/min (>60) Glucose Level 178 mg/dL (74-106) H Calcium Level 8.6 mg/dL (8.6-10.2) Total Bilirubin 0.2 mg/dL (0.0-1.2) Aspartate Amino Transf (AST/SGOT) 11 U/L (5-40) Alanine Aminotransferase (ALT/SGPT) 25 U/L (3-41) Alkaline Phosphatase 101 U/L (40-129) Total Creatine Kinase 17 U/L (38-174) L Total Protein 5.9 g/dL (6.6-8.7) L Albumin 2.4 g/dL (3.5-5.2) L Globulin 3.5 g/dL Albumin/Globulin Ratio 0.6 (1.0-2.7) L Current Medications Medications (Trade) Dose Ordered Sig/Shraddha Route PRN Reason Start Time Stop Time Status Last Admin Dose Admin Acetaminophen (Tylenol) 650 mg Q4H PRN ORAL fever>100.5 10/05/16 11:30 11/04/16 11:29 Albuterol/ Ipratropium (DuoNeb 0.5-3(2.5)mg/3ml) 3 ml Q4H PRN HHN Shortness of Breath 10/05/16 11:30 10/10/16 11:29 10/07/16 12:43 Ceftazidime 2 gm/ Dextrose 110 ml @ 220 mls/hr Q8HR IV 10/05/16 14:00 10/12/16 13:59 10/08/16 05:00 Dextrose (Dextrose 50%) STAT PRN IV Hypoglycemia 10/05/16 11:30 11/04/16 11:29 Insulin Aspart (NovoLOG) start when feeding started Q6HR SUBQ 10/05/16 12:00 11/04/16 11:59 10/08/16 05:47 Iron Sucrose/ Sodium Chloride (Venofer/Sodium Chloride) 60 ml @ 240 mls/hr BEDTIME IVPB 10/06/16 21:00 10/10/16 21:14 10/07/16 20:09 Lorazepam (Ativan 2mg/ml 1ml) 1 mg Q4H PRN IV For Anxiety 10/05/16 11:30 10/12/16 11:29 10/07/16 04:05 Metronidazole (Flagyl) 100 ml @ 100 mls/hr Q8HR IVPB 10/05/16 14:00 10/12/16 13:59 10/08/16 05:46 Morphine Sulfate (Morphine Sulfate) 4 mg Q4H PRN IVP Pain 4-10 10/05/16 11:30 10/12/16 11:29 10/08/16 00:06 Ondansetron HCl (Zofran) 4 mg Q6H PRN IVP Nausea & Vomiting 10/05/16 11:30 11/04/16 11:29 Pantoprazole (Protonix) 40 mg DAILY IVP 10/06/16 09:00 11/05/16 08:59 10/08/16 09:36 Polyethylene Glycol 17 gm 17 gm DAILYPRN PRN ORAL Constipation 10/05/16 11:30 11/04/16 11:29 Tobramycin Sulfate (Nebcin) 300 mg Q12HR@10,22 INH 10/07/16 22:00 10/14/16 21:59 10/08/16 09:48 KIMBERLEE HINKLE M.D. Oct 08, 2016 12:20
[2016-10-08] MEDS: DuoNeb 0.5-3(2.5)mg/3ml neb HHN PRN ×2 (14:03→20:24)
[2016-10-08 16:00] VITALS: BP 115/76
--- NOTE | 2016-10-08 19:14 | Internal Med Progress Note ---
Subjective Date of Service: Oct 08, 2016 Physician Name Tadeo Verdin Attending Physician Steve Rader MD Current Medications Medications (Trade) Dose Ordered Sig/Shraddha Route PRN Reason Start Time Stop Time Status Last Admin Dose Admin Acetaminophen (Tylenol) 650 mg Q4H PRN ORAL fever>100.5 10/05/16 11:30 11/04/16 11:29 Albuterol/ Ipratropium (DuoNeb 0.5-3(2.5)mg/3ml) 3 ml Q4H PRN HHN Shortness of Breath 10/05/16 11:30 10/10/16 11:29 10/08/16 14:03 Ceftazidime 2 gm/ Dextrose 110 ml @ 220 mls/hr Q8HR IV 10/05/16 14:00 10/12/16 13:59 10/08/16 14:09 Dextrose (Dextrose 50%) STAT PRN IV Hypoglycemia 10/05/16 11:30 11/04/16 11:29 Insulin Aspart (NovoLOG) start when feeding started Q6HR SUBQ 10/05/16 12:00 11/04/16 11:59 10/08/16 18:02 Iron Sucrose/ Sodium Chloride (Venofer/Sodium Chloride) 60 ml @ 240 mls/hr BEDTIME IVPB 10/06/16 21:00 10/10/16 21:14 10/07/16 20:09 Lorazepam (Ativan 2mg/ml 1ml) 1 mg Q4H PRN IV For Anxiety 10/05/16 11:30 10/12/16 11:29 10/07/16 04:05 Metronidazole (Flagyl) 100 ml @ 100 mls/hr Q8HR IVPB 10/05/16 14:00 10/12/16 13:59 10/08/16 14:09 Morphine Sulfate (Morphine Sulfate) 4 mg Q4H PRN IVP Pain 4-10 10/05/16 11:30 10/12/16 11:29 10/08/16 00:06 Ondansetron HCl (Zofran) 4 mg Q6H PRN IVP Nausea & Vomiting 10/05/16 11:30 11/04/16 11:29 Pantoprazole (Protonix) 40 mg DAILY IVP 10/06/16 09:00 11/05/16 08:59 10/08/16 09:36 Polyethylene Glycol 17 gm 17 gm DAILYPRN PRN ORAL Constipation 10/05/16 11:30 11/04/16 11:29 Tobramycin Sulfate (Nebcin) 300 mg Q12HR@10,22 INH 10/07/16 22:00 10/14/16 21:59 10/08/16 09:48 Allergies: Coded Allergies: No Known Allergies (Unverified , 06/17/16) ROS Limited/Unobtainable: Yes Subjective 66 YO M admitted with respiratory failure. JORDAN. Intubated and sedated. S/P tracheostomy 10/03/16. S/P PEG 10/04/16. Cover for Int Med-Dr Rader. Objective Last Vital Signs Date Time Temp Pulse Resp B/P Pulse Ox O2 Delivery O2 Flow Rate FiO2 10/08/16 16:48 108 20 40 10/08/16 16:00 97.0 115/76 99 Mechanical Ventilator Laboratory Tests Test 10/08/16 03:45 White Blood Count 14.6 K/UL (4.8-10.8) H Red Blood Count 3.08 M/UL (4.70-6.10) L Hemoglobin 8.5 G/DL (14.2-18.0) L Hematocrit 28.1 % (42.0-52.0) L Mean Corpuscular Volume 91 FL (80-99) Mean Corpuscular Hemoglobin 27.7 PG (27.0-31.0) Mean Corpuscular Hemoglobin Concent 30.4 G/DL (32.0-36.0) L Red Cell Distribution Width 15.8 % (11.6-14.8) H Platelet Count 333 K/UL (150-450) Mean Platelet Volume 6.5 FL (6.5-10.1) Neutrophils (%) (Auto) % (45.0-75.0) Lymphocytes (%) (Auto) % (20.0-45.0) Monocytes (%) (Auto) % (1.0-10.0) Eosinophils (%) (Auto) % (0.0-3.0) Basophils (%) (Auto) % (0.0-2.0) Sodium Level 142 mEQ/L (135-145) Potassium Level 3.4 mEQ/L (3.4-4.9) Chloride Level 95 mEQ/L (98-107) L Carbon Dioxide Level 40 mEQ/L (20-30) H Anion Gap 7 (5-15) Blood Urea Nitrogen 10 mg/dL (7-23) Creatinine 0.4 mg/dL (0.7-1.2) L Estimat Glomerular Filtration Rate > 60 mL/min (>60) Glucose Level 178 mg/dL (74-106) H Calcium Level 8.6 mg/dL (8.6-10.2) Total Bilirubin 0.2 mg/dL (0.0-1.2) Aspartate Amino Transf (AST/SGOT) 11 U/L (5-40) Alanine Aminotransferase (ALT/SGPT) 25 U/L (3-41) Alkaline Phosphatase 101 U/L (40-129) Total Creatine Kinase 17 U/L (38-174) L Total Protein 5.9 g/dL (6.6-8.7) L Albumin 2.4 g/dL (3.5-5.2) L Globulin 3.5 g/dL Albumin/Globulin Ratio 0.6 (1.0-2.7) L Intake and Output 10/07/16 10/08/16 19:00 07:00 Intake Total 920 ml 1020 ml Output Total 400 ml Balance 520 ml 1020 ml Free Water 200 ml 200 ml IV Total 100 ml Tube Feeding 720 ml 720 ml Output Urine Total 400 ml Objective General Appearance: moderate distress, thin EENT: PERRL/EOMI, normal ENT inspection Neck: non-tender, normal alignment, supple Cardiovascular: normal peripheral pulses, normal rate, regular rhythm, no gallop/murmur, no JVD Respiratory/Chest: Mech Vent; trach; respiratory distress, crackles/rales, rhonchi - bilaterally, expiratory wheezing Abdomen: non tender, soft, no organomegaly, no mass, decreased bowel sounds Extremities: normal range of motion Skin: normal pigmentation, warm/dry Assessment/Plan Problem List: (1) Lung nodule (2) DVT (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 (3) Acute respiratory failure Assessment & Plan: S/P tracheostomy 10/03/16. Cont vent per pulmonary (4) COPD exacerbation Assessment & Plan: Continue duoneb. Continue vent per pulmonary. (5) Pneumonia Assessment & Plan: continue ceftazidime and IV flagyl per ID-continue tobramycin nebs (6) Leukocytosis Assessment & Plan: Continue PO vanco and IV flagyl per ID. (7) Dysphagia Assessment & Plan: See GI consult- S/P PEG 10/04/16. Status: not improved Assessment/Plan Discharge Planning: [facility] TADEO VERDIN Oct 08, 2016 19:14
[2016-10-08 20:00] VITALS: BP 112/72
[2016-10-08] MEDS: Iron Sucrose 100 MG in NS 55 ML IVPB SCH (20:50)
--- NOTE | 2016-10-08 22:12 | General Progress Note ---
Assessment/Plan Assessment/Plan Assessment - abnormal LFT - resolved - loose stools - Leukocytosis - resolving - COPD - respiratory failure - s/p trach and PEG - dysphagia Recommendations - check C Diff - follow LFT - elevate HOB - GT care Subjective Allergies: Coded Allergies: No Known Allergies (Unverified , 06/17/16) Subjective above noted loose stools per RN tolerating TF LFT now normal Objective Last 24 Hour Vital Signs Date Time Temp Pulse Resp B/P Pulse Ox O2 Delivery O2 Flow Rate FiO2 10/08/16 20:26 100 18 40 10/08/16 20:25 103 18 100 Mechanical Ventilator 40 10/08/16 20:15 103 18 100 Mechanical Ventilator 40 10/08/16 20:15 40 10/08/16 20:00 100 10/08/16 20:00 40 10/08/16 20:00 98.6 106 19 112/72 99 Mechanical Ventilator 40 10/08/16 16:48 108 20 40 10/08/16 16:00 40 10/08/16 16:00 97.0 106 19 115/76 99 Mechanical Ventilator 40 10/08/16 16:00 103 10/08/16 15:20 105 18 40 10/08/16 13:29 112 18 40 10/08/16 12:00 98.1 111 20 138/88 100 Mechanical Ventilator 40 10/08/16 11:56 40 10/08/16 11:56 89 10/08/16 11:29 111 19 40 10/08/16 10:02 101 18 100 Mechanical Ventilator 40 10/08/16 09:48 101 18 100 Mechanical Ventilator 40 10/08/16 09:48 40 10/08/16 09:00 101 18 40 10/08/16 08:00 95 10/08/16 08:00 40 10/08/16 08:00 99.1 104 18 106/78 100 10/08/16 07:30 100 18 40 10/08/16 04:56 115 20 40 10/08/16 04:00 40 10/08/16 04:00 98.0 106 19 148/87 100 Mechanical Ventilator 40 10/08/16 04:00 98.0 106 19 148/87 100 Mechanical Ventilator 40 10/08/16 04:00 117 10/08/16 03:19 117 16 40 10/08/16 00:40 101 16 40 10/08/16 00:40 97.4 65 23 103/68 98 Mechanical Ventilator 40 10/08/16 00:00 40 10/07/16 23:50 107 10/07/16 22:33 104 16 40 10/07/16 22:30 105 16 100 Mechanical Ventilator 40 Intake and Output 10/07/16 10/08/16 19:00 07:00 Intake Total 920 ml 1020 ml Output Total 400 ml Balance 520 ml 1020 ml Free Water 200 ml 200 ml IV Total 100 ml Tube Feeding 720 ml 720 ml Output Urine Total 400 ml Laboratory Tests 10/08/16 03:45: White Blood Count 14.6H, Red Blood Count 3.08L, Hemoglobin 8.5L, Hematocrit 28.1L, Mean Corpuscular Volume 91, Mean Corpuscular Hemoglobin 27.7, Mean Corpuscular Hemoglobin Concent 30.4L, Red Cell Distribution Width 15.8H, Platelet Count 333, Mean Platelet Volume 6.5, Neutrophils (%) (Auto) , Lymphocytes (%) (Auto) , Monocytes (%) (Auto) , Eosinophils (%) (Auto) , Basophils (%) (Auto) , Sodium Level 142, Potassium Level 3.4, Chloride Level 95L , Carbon Dioxide Level 40H, Anion Gap 7, Blood Urea Nitrogen 10, Creatinine 0.4L , Estimat Glomerular Filtration Rate > 60, Glucose Level 178H, Calcium Level 8.6 , Total Bilirubin 0.2, Aspartate Amino Transf (AST/SGOT) 11, Alanine Aminotransferase (ALT/SGPT) 25, Alkaline Phosphatase 101, Total Creatine Kinase 17L, Total Protein 5.9L, Albumin 2.4L, Globulin 3.5, Albumin/Globulin Ratio 0.6L Height (Feet): 6 Height (Inches): 2.00 Weight (Pounds): 126 Objective Elderly AA man NCAT (+) trach Coarse BS RRR soft NT abdomen, (+) GT responsive ROSEMARY BURROUGHS Oct 08, 2016 22:12
[2016-10-09] VITALS: BP 107/68
[2016-10-09] MEDS: NovoLOG Insulin Flexpen SUBQ SCH ×4 (00:45→18:28)
[2016-10-09] MEDS: LORazepam Inj 2mg/ml 1ml IV PRN ×2 (01:31→21:09)
[2016-10-09 04:00] VITALS: BP 111/74
[2016-10-09] MEDS: CefTAZidime 2 GM in D5W 110 ML IV SCH ×3 (05:27→21:20)
[2016-10-09] MEDS: metroNIDAZOLE 500mg 100 ML IVPB SCH ×3 (05:42→22:05)
[2016-10-09 06:22] LABS: BASOPHILS % (AUTO) 0.7 % (0.0-2.0); EOSINOPHILS % (AUTO) 1.8 % (0.0-3.0); LYMPHOCYTES % (AUTO) 10.2 % (20.0-45.0); MEAN CORPUSCULAR HGB CONC 29.4 G/DL (32.0-36.0); MEAN CORPUSCULAR VOLUME 92 FL (80-99); MEAN PLATELET VOLUME 6.8 FL (6.5-10.1); MONOCYTES % (AUTO) 6.8 % (1.0-10.0); NEUTROPHILS % (AUTO) 80.6 % (45.0-75.0); PLATELET COUNT 371 K/UL (150-450); RED BLOOD COUNT 3.08 M/UL (4.70-6.10); RED CELL DISTRIBUTION WIDTH 15.5 % (11.6-14.8); WHITE BLOOD COUNT 11.4 K/UL (4.8-10.8)
[2016-10-09 06:40] LABS: ALANINE AMINOTRANSFERASE 19 U/L (3-41); ALBUMIN/GLOBULIN RATIO 0.7 (1.0-2.7); ASPARTATE AMINO TRANSFERASE 13 U/L (5-40); CALCIUM 8.6 mg/dL (8.6-10.2); CHLORIDE 97 mEQ/L (98-107); CREATININE 0.4 mg/dL (0.7-1.2); GLOMERULAR FILTRATION RATE > 60 mL/min (>60); HEMOLYSIS 1; MAGNESIUM 2.2 mg/dL (1.7-2.5); PHOSPHORUS 3.1 mg/dL (2.5-4.8); SODIUM 142 mEQ/L (135-145); TOTAL PROTEIN 5.8 g/dL (6.6-8.7)
[2016-10-09 06:52] LABS: ANION GAP 6 (5-15); CARBON DIOXIDE 39 mEQ/L (20-30)
[2016-10-09 08:00] VITALS: BP 107/72
[2016-10-09] MEDS: Pantoprazole Inj IVP SCH (10:08)
[2016-10-09] MEDS: Tobramycin for inhalation INH SCH ×2 (10:14→19:07)
--- NOTE | 2016-10-09 10:30 | Diagnostic Imaging Report ---
APPROVED REPORT CPT Code: 68279 Present Symptoms Shortness of breath RIGHT LEG: Venous imaging reveals recanalized chronic thrombus in the superficial femoral vein. Large collateral vein noted anterior to the superficial femoral artery. The remainder of the deep venous system is within normal limits. There is no evidence of thrombus in the common femoral, popliteal or calf veins. The greater saphenous vein is also within normal limits. Doppler indicates normal spontaneous flow within these segments. LEFT LEG: Venous imaging reveals a patent deep venous system. There is no evidence of thrombus within the femoral, popliteal or tibial segments. The greater saphenous vein is also within normal limits. Doppler indicates normal spontaneous flow within these segments. There is no evidence of acute deep vein thrombosis.
--- NOTE | 2016-10-09 10:56 | Pulmonology Progress Note ---
Assessment/Plan Problems: (1) Respiratory failure (2) COPD exacerbation (3) Emphysema of lung Respiratory: monitor respiratory rate, adjust FIO2 Cardiac: continue to monitor HR/BP Renal: F/U I&O, check electrolytes Infectious Disease: check cultures, continue antibiotics Gastrointestinal: continue feedings/current rate Endocrine: monitor blood sugar, check HgA1C, continue sliding scale insulin Neurologic: PRN Ativan, PRN Morphine, keep patient comfortable Prophylaxis: Protonix, Heparin Notes Reviewed: banana expert, cardio Subjective ROS Limited/Unobtainable: Yes Constitutional: Reports: no symptoms Cardiovascular: Reports: no symptoms Allergies: Coded Allergies: No Known Allergies (Unverified , 06/17/16) Objective Last 24 Hour Vital Signs Date Time Temp Pulse Resp B/P Pulse Ox O2 Delivery O2 Flow Rate FiO2 10/09/16 10:15 103 16 100 Mechanical Ventilator 40 10/09/16 10:15 101 16 100 Mechanical Ventilator 40 10/09/16 10:15 40 10/09/16 09:04 100 16 40 10/09/16 08:00 50 10/09/16 08:00 89 10/09/16 08:00 97.7 108 16 107/72 100 Mechanical Ventilator 40 10/09/16 07:03 100 16 40 10/09/16 04:59 106 16 40 10/09/16 04:00 98.2 108 18 111/74 100 Mechanical Ventilator 10/09/16 04:00 50 10/09/16 03:41 98 10/09/16 03:10 107 16 40 10/09/16 01:02 105 17 40 10/09/16 00:00 94 10/09/16 00:00 97.7 101 18 107/68 100 Mechanical Ventilator 10/09/16 00:00 40 10/08/16 23:32 105 16 100 Mechanical Ventilator 40 10/08/16 23:10 98 17 40 10/08/16 23:09 98 19 100 Mechanical Ventilator 40 10/08/16 23:09 40 10/08/16 20:26 100 18 40 10/08/16 20:25 103 18 100 Mechanical Ventilator 40 10/08/16 20:15 103 18 100 Mechanical Ventilator 40 10/08/16 20:15 40 10/08/16 20:00 100 10/08/16 20:00 40 10/08/16 20:00 98.6 106 19 112/72 99 Mechanical Ventilator 40 10/08/16 16:48 108 20 40 10/08/16 16:00 40 10/08/16 16:00 97.0 106 19 115/76 99 Mechanical Ventilator 40 10/08/16 16:00 103 10/08/16 15:20 105 18 40 10/08/16 13:29 112 18 40 10/08/16 12:00 98.1 111 20 138/88 100 Mechanical Ventilator 40 10/08/16 11:56 40 10/08/16 11:56 89 10/08/16 11:29 111 19 40 Intake and Output 10/08/16 10/09/16 19:00 07:00 Intake Total 920 ml 1490 ml Output Total 760 ml 770 ml Balance 160 ml 720 ml Free Water 200 ml 160 ml IV Total 670 ml Tube Feeding 720 ml 660 ml Output Urine Total 760 ml 770 ml # Bowel Movements 1 2 Objective Status: awake HEENT: atraumatic, normocephalic Lungs: clear, decreased breath sounds Heart: HR/BP stable Abdomen: soft, non-tender Extremities: no C/C/E, edema Laboratory Tests 10/09/16 05:20: White Blood Count 11.4H, Red Blood Count 3.08L, Hemoglobin 8.3L, Hematocrit 28.3L, Mean Corpuscular Volume 92, Mean Corpuscular Hemoglobin 27.0, Mean Corpuscular Hemoglobin Concent 29.4L, Red Cell Distribution Width 15.5H, Platelet Count 371, Mean Platelet Volume 6.8, Neutrophils (%) (Auto) 80.6H, Lymphocytes (%) (Auto) 10.2L, Monocytes (%) (Auto) 6.8, Eosinophils (%) (Auto) 1.8, Basophils (%) (Auto) 0.7, Sodium Level 142, Potassium Level 4.0, Chloride Level 97L, Carbon Dioxide Level 39H, Anion Gap 6, Blood Urea Nitrogen 10, Creatinine 0.4L, Estimat Glomerular Filtration Rate > 60, Glucose Level 121H, Calcium Level 8.6, Phosphorus Level 3.1, Magnesium Level 2.2, Total Bilirubin < 0.2, Aspartate Amino Transf (AST/SGOT) 13, Alanine Aminotransferase (ALT/SGPT) 19, Alkaline Phosphatase 87, Total Protein 5.8L, Albumin 2.4L, Globulin 3.4, Albumin/Globulin Ratio 0.7L Current Medications Medications (Trade) Dose Ordered Sig/Shraddha Route PRN Reason Start Time Stop Time Status Last Admin Dose Admin Acetaminophen (Tylenol) 650 mg Q4H PRN ORAL fever>100.5 10/05/16 11:30 11/04/16 11:29 Albuterol/ Ipratropium (DuoNeb 0.5-3(2.5)mg/3ml) 3 ml Q4H PRN HHN Shortness of Breath 10/05/16 11:30 10/10/16 11:29 10/08/16 20:24 Ceftazidime 2 gm/ Dextrose 110 ml @ 220 mls/hr Q8HR IV 10/05/16 14:00 10/12/16 13:59 10/09/16 05:27 Dextrose (Dextrose 50%) STAT PRN IV Hypoglycemia 10/05/16 11:30 11/04/16 11:29 Insulin Aspart (NovoLOG) start when feeding started Q6HR SUBQ 10/05/16 12:00 11/04/16 11:59 10/09/16 06:50 Iron Sucrose/ Sodium Chloride (Venofer/Sodium Chloride) 60 ml @ 240 mls/hr BEDTIME IVPB 10/06/16 21:00 10/10/16 21:14 10/08/16 20:50 Lorazepam (Ativan 2mg/ml 1ml) 1 mg Q4H PRN IV For Anxiety 10/05/16 11:30 10/12/16 11:29 10/09/16 01:31 Metronidazole (Flagyl) 100 ml @ 100 mls/hr Q8HR IVPB 10/05/16 14:00 10/12/16 13:59 10/09/16 05:42 Morphine Sulfate (Morphine Sulfate) 4 mg Q4H PRN IVP Pain 4-10 10/05/16 11:30 10/12/16 11:29 10/08/16 00:06 Ondansetron HCl (Zofran) 4 mg Q6H PRN IVP Nausea & Vomiting 10/05/16 11:30 11/04/16 11:29 Pantoprazole (Protonix) 40 mg DAILY IVP 10/06/16 09:00 11/05/16 08:59 10/09/16 10:08 Polyethylene Glycol 17 gm 17 gm DAILYPRN PRN ORAL Constipation 10/05/16 11:30 11/04/16 11:29 Tobramycin Sulfate (Nebcin) 300 mg Q12HR@10,22 INH 10/07/16 22:00 10/14/16 21:59 10/09/16 10:14 REN WRIGHT Oct 09, 2016 10:56
[2016-10-09 12:00] VITALS: BP 111/58
--- NOTE | 2016-10-09 13:01 | Internal Med Progress Note ---
Subjective Date of Service: Oct 09, 2016 Physician Name Tadeo Verdin Attending Physician Steve Rader MD Current Medications Medications (Trade) Dose Ordered Sig/Shraddha Route PRN Reason Start Time Stop Time Status Last Admin Dose Admin Acetaminophen (Tylenol) 650 mg Q4H PRN ORAL fever>100.5 10/05/16 11:30 11/04/16 11:29 Albuterol/ Ipratropium (DuoNeb 0.5-3(2.5)mg/3ml) 3 ml Q4H PRN HHN Shortness of Breath 10/05/16 11:30 10/10/16 11:29 10/08/16 20:24 Ceftazidime 2 gm/ Dextrose 110 ml @ 220 mls/hr Q8HR IV 10/05/16 14:00 10/12/16 13:59 10/09/16 05:27 Dextrose (Dextrose 50%) STAT PRN IV Hypoglycemia 10/05/16 11:30 11/04/16 11:29 Insulin Aspart (NovoLOG) start when feeding started Q6HR SUBQ 10/05/16 12:00 11/04/16 11:59 10/09/16 12:05 Iron Sucrose/ Sodium Chloride (Venofer/Sodium Chloride) 60 ml @ 240 mls/hr BEDTIME IVPB 10/06/16 21:00 10/10/16 21:14 10/08/16 20:50 Lorazepam (Ativan 2mg/ml 1ml) 1 mg Q4H PRN IV For Anxiety 10/05/16 11:30 10/12/16 11:29 10/09/16 01:31 Metronidazole (Flagyl) 100 ml @ 100 mls/hr Q8HR IVPB 10/05/16 14:00 10/12/16 13:59 10/09/16 05:42 Morphine Sulfate (Morphine Sulfate) 4 mg Q4H PRN IVP Pain 4-10 10/05/16 11:30 10/12/16 11:29 10/08/16 00:06 Ondansetron HCl (Zofran) 4 mg Q6H PRN IVP Nausea & Vomiting 10/05/16 11:30 11/04/16 11:29 Pantoprazole (Protonix) 40 mg DAILY IVP 10/06/16 09:00 11/05/16 08:59 10/09/16 10:08 Polyethylene Glycol 17 gm 17 gm DAILYPRN PRN ORAL Constipation 10/05/16 11:30 11/04/16 11:29 Tobramycin Sulfate (Nebcin) 300 mg Q12HR@10,22 INH 10/07/16 22:00 10/14/16 21:59 10/09/16 10:14 Allergies: Coded Allergies: No Known Allergies (Unverified , 06/17/16) ROS Limited/Unobtainable: Yes Subjective 66 YO M admitted with respiratory failure. JORDAN. Intubated and sedated. S/P tracheostomy 10/03/16. S/P PEG 10/04/16. Cover for Int Med-Dr Rader. Objective Last Vital Signs Date Time Temp Pulse Resp B/P Pulse Ox O2 Delivery O2 Flow Rate FiO2 10/09/16 11:42 98 10/09/16 11:42 50 10/09/16 10:42 16 10/09/16 10:15 100 Mechanical Ventilator 10/09/16 08:00 97.7 107/72 Laboratory Tests Test 10/09/16 05:20 White Blood Count 11.4 K/UL (4.8-10.8) H Red Blood Count 3.08 M/UL (4.70-6.10) L Hemoglobin 8.3 G/DL (14.2-18.0) L Hematocrit 28.3 % (42.0-52.0) L Mean Corpuscular Volume 92 FL (80-99) Mean Corpuscular Hemoglobin 27.0 PG (27.0-31.0) Mean Corpuscular Hemoglobin Concent 29.4 G/DL (32.0-36.0) L Red Cell Distribution Width 15.5 % (11.6-14.8) H Platelet Count 371 K/UL (150-450) Mean Platelet Volume 6.8 FL (6.5-10.1) Neutrophils (%) (Auto) 80.6 % (45.0-75.0) H Lymphocytes (%) (Auto) 10.2 % (20.0-45.0) L Monocytes (%) (Auto) 6.8 % (1.0-10.0) Eosinophils (%) (Auto) 1.8 % (0.0-3.0) Basophils (%) (Auto) 0.7 % (0.0-2.0) Sodium Level 142 mEQ/L (135-145) Potassium Level 4.0 mEQ/L (3.4-4.9) Chloride Level 97 mEQ/L (98-107) L Carbon Dioxide Level 39 mEQ/L (20-30) H Anion Gap 6 (5-15) Blood Urea Nitrogen 10 mg/dL (7-23) Creatinine 0.4 mg/dL (0.7-1.2) L Estimat Glomerular Filtration Rate > 60 mL/min (>60) Glucose Level 121 mg/dL (74-106) H Calcium Level 8.6 mg/dL (8.6-10.2) Phosphorus Level 3.1 mg/dL (2.5-4.8) Magnesium Level 2.2 mg/dL (1.7-2.5) Total Bilirubin < 0.2 mg/dL (0.0-1.2) Aspartate Amino Transf (AST/SGOT) 13 U/L (5-40) Alanine Aminotransferase (ALT/SGPT) 19 U/L (3-41) Alkaline Phosphatase 87 U/L (40-129) Total Protein 5.8 g/dL (6.6-8.7) L Albumin 2.4 g/dL (3.5-5.2) L Globulin 3.4 g/dL Albumin/Globulin Ratio 0.7 (1.0-2.7) L Intake and Output 10/08/16 10/09/16 19:00 07:00 Intake Total 920 ml 1490 ml Output Total 760 ml 770 ml Balance 160 ml 720 ml Free Water 200 ml 160 ml IV Total 670 ml Tube Feeding 720 ml 660 ml Output Urine Total 760 ml 770 ml # Bowel Movements 1 2 Objective General Appearance: moderate distress, thin EENT: PERRL/EOMI, normal ENT inspection Neck: non-tender, normal alignment, supple Cardiovascular: normal peripheral pulses, normal rate, regular rhythm, no gallop/murmur, no JVD Respiratory/Chest: Trach; Mech Vent; trach; respiratory distress, crackles/ rales, rhonchi - bilaterally, expiratory wheezing Abdomen: non tender, soft, no organomegaly, no mass, decreased bowel sounds Extremities: normal range of motion Skin: normal pigmentation, warm/dry Assessment/Plan Problem List: (1) Lung nodule (2) DVT (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 (3) Acute respiratory failure Assessment & Plan: S/P tracheostomy 10/03/16. Cont vent per pulmonary (4) COPD exacerbation Assessment & Plan: Continue duoneb. Continue vent per pulmonary. (5) Pneumonia Assessment & Plan: continue ceftazidime and IV flagyl per ID-continue tobramycin nebs (6) Leukocytosis Assessment & Plan: Continue PO vanco and IV flagyl per ID. (7) Dysphagia Assessment & Plan: See GI consult- S/P PEG 10/04/16. Status: not improved Assessment/Plan Discharge Planning: [facility] TADEO VERDIN Oct 09, 2016 13:01
[2016-10-09 16:38] VITALS: BP 97/72
--- NOTE | 2016-10-09 17:28 | General Progress Note ---
Assessment/Plan Assessment/Plan Assessment - abnormal LFT - resolved - loose stools - Leukocytosis - resolving - COPD - respiratory failure - s/p trach and PEG - dysphagia Recommendations - check C Diff - follow LFT - elevate HOB - GT care Subjective Allergies: Coded Allergies: No Known Allergies (Unverified , 06/17/16) Subjective above noted tolerating TF comfortable Objective Last 24 Hour Vital Signs Date Time Temp Pulse Resp B/P Pulse Ox O2 Delivery O2 Flow Rate FiO2 10/09/16 16:59 96 16 40 10/09/16 16:38 97.5 94 18 97/72 100 Mechanical Ventilator 10/09/16 16:33 50 10/09/16 14:43 100 16 40 10/09/16 12:53 100 16 40 10/09/16 12:00 97.5 103 18 111/58 100 Mechanical Ventilator 40 10/09/16 11:42 98 10/09/16 11:42 50 10/09/16 10:42 100 16 40 10/09/16 10:15 103 16 100 Mechanical Ventilator 40 10/09/16 10:15 101 16 100 Mechanical Ventilator 40 10/09/16 10:15 40 10/09/16 09:04 100 16 40 10/09/16 08:00 50 10/09/16 08:00 89 10/09/16 08:00 97.7 108 16 107/72 100 Mechanical Ventilator 40 10/09/16 07:03 100 16 40 10/09/16 04:59 106 16 40 10/09/16 04:00 98.2 108 18 111/74 100 Mechanical Ventilator 10/09/16 04:00 50 10/09/16 03:41 98 10/09/16 03:10 107 16 40 10/09/16 01:02 105 17 40 10/09/16 00:00 94 10/09/16 00:00 97.7 101 18 107/68 100 Mechanical Ventilator 10/09/16 00:00 40 10/08/16 23:32 105 16 100 Mechanical Ventilator 40 10/08/16 23:10 98 17 40 10/08/16 23:09 98 19 100 Mechanical Ventilator 40 10/08/16 23:09 40 10/08/16 20:26 100 18 40 10/08/16 20:25 103 18 100 Mechanical Ventilator 40 10/08/16 20:15 103 18 100 Mechanical Ventilator 40 10/08/16 20:15 40 10/08/16 20:00 100 10/08/16 20:00 40 10/08/16 20:00 98.6 106 19 112/72 99 Mechanical Ventilator 40 Intake and Output 10/08/16 10/09/16 19:00 07:00 Intake Total 920 ml 1490 ml Output Total 760 ml 770 ml Balance 160 ml 720 ml Free Water 200 ml 160 ml IV Total 670 ml Tube Feeding 720 ml 660 ml Output Urine Total 760 ml 770 ml # Bowel Movements 1 2 Laboratory Tests 10/09/16 05:20: White Blood Count 11.4H, Red Blood Count 3.08L, Hemoglobin 8.3L, Hematocrit 28.3L, Mean Corpuscular Volume 92, Mean Corpuscular Hemoglobin 27.0, Mean Corpuscular Hemoglobin Concent 29.4L, Red Cell Distribution Width 15.5H, Platelet Count 371, Mean Platelet Volume 6.8, Neutrophils (%) (Auto) 80.6H, Lymphocytes (%) (Auto) 10.2L, Monocytes (%) (Auto) 6.8, Eosinophils (%) (Auto) 1.8, Basophils (%) (Auto) 0.7, Sodium Level 142, Potassium Level 4.0, Chloride Level 97L, Carbon Dioxide Level 39H, Anion Gap 6, Blood Urea Nitrogen 10, Creatinine 0.4L, Estimat Glomerular Filtration Rate > 60, Glucose Level 121H, Calcium Level 8.6, Phosphorus Level 3.1, Magnesium Level 2.2, Total Bilirubin < 0.2, Aspartate Amino Transf (AST/SGOT) 13, Alanine Aminotransferase (ALT/SGPT) 19, Alkaline Phosphatase 87, Total Protein 5.8L, Albumin 2.4L, Globulin 3.4, Albumin/Globulin Ratio 0.7L 10/09/16 13:44: RBC Folate Hemolysate [Pending], Red Blood Cell Folate [Pending] Height (Feet): 6 Height (Inches): 2.00 Weight (Pounds): 126 Objective Elderly AA man NCAT (+) trach Coarse BS RRR soft NT abdomen, (+) GT responsive ROSEMARY BURROUGHS Oct 09, 2016 17:28
[2016-10-09] MEDS ORDERED: Tubing IV Secondary IV ONE (18:14)
[2016-10-09] MEDS ORDERED: D5W 275ml ONE (18:14)
[2016-10-09] MEDS ORDERED: NS 275ml ONE (18:14)
--- NOTE | 2016-10-09 19:55 | Infectious Diseases Prog Note ---
Assessment/Plan Assessment/Plan ASSESSMENT: 66 y/o male with: // COPD exacerbation - delayed SCx 4+ PSA pt has increased secretions - CXR 09/27: Lungs are hyperinflated. No new infiltrates - negative: influenza // Leukocytosis - improving l ( post op, 10/01 SP steroids ) // Diarrhea x 1 resolved // Febrile low grade // HIV and Hep B/C : neg // - PEG 10/04 // Acute VDRF - intubated 09/20, 10/03 SP trach // Severe pulmonary HTN / grade I diastolic dysfunction / mod TR // Pulmonary nodules // Chronic RLE DVT // Tobacco abuse // [facility] resident // Negative MRSA, VRE screens // NKDA // Full Code PLAN: - on Jairon nebs d# / , add Ceftazidime d# / cont Flagyl d# 8 /10 ( 10/04 SP oral Vanco d# 3 ) ( 09/24 SP amikacin, invanz d# 5 / 5 ) ( 09/21 SP IV vancomycin d# 2 ) - taper steroids per pulm - monitor CBC, temperatures - monitor BMP - monitor CXR - vent support, wean as tolerated. - Monitor Cx ( Bl, ) Subjective Constitutional: Denies: anorexia, chills, drenching sweats, fatigue, fever, no symptoms, other Allergies: Coded Allergies: No Known Allergies (Unverified , 06/17/16) Objective Vital Signs Last 24 Hour Vital Signs Date Time Temp Pulse Resp B/P Pulse Ox O2 Delivery O2 Flow Rate FiO2 10/09/16 19:10 100 16 100 Mechanical Ventilator 40 10/09/16 19:00 40 10/09/16 19:00 98 16 40 10/09/16 19:00 98 16 100 Mechanical Ventilator 40 10/09/16 16:59 96 16 40 10/09/16 16:38 97.5 94 18 97/72 100 Mechanical Ventilator 10/09/16 16:33 50 10/09/16 16:00 98 10/09/16 14:43 100 16 40 10/09/16 12:53 100 16 40 10/09/16 12:00 97.5 103 18 111/58 100 Mechanical Ventilator 40 10/09/16 11:42 98 10/09/16 11:42 50 10/09/16 10:42 100 16 40 10/09/16 10:15 103 16 100 Mechanical Ventilator 40 10/09/16 10:15 101 16 100 Mechanical Ventilator 40 10/09/16 10:15 40 10/09/16 09:04 100 16 40 10/09/16 08:00 50 10/09/16 08:00 89 10/09/16 08:00 97.7 108 16 107/72 100 Mechanical Ventilator 40 10/09/16 07:03 100 16 40 10/09/16 04:59 106 16 40 10/09/16 04:00 98.2 108 18 111/74 100 Mechanical Ventilator 10/09/16 04:00 50 10/09/16 03:41 98 10/09/16 03:10 107 16 40 10/09/16 01:02 105 17 40 10/09/16 00:00 94 10/09/16 00:00 97.7 101 18 107/68 100 Mechanical Ventilator 10/09/16 00:00 40 10/08/16 23:32 105 16 100 Mechanical Ventilator 40 10/08/16 23:10 98 17 40 10/08/16 23:09 98 19 100 Mechanical Ventilator 40 10/08/16 23:09 40 10/08/16 20:26 100 18 40 10/08/16 20:25 103 18 100 Mechanical Ventilator 40 10/08/16 20:15 103 18 100 Mechanical Ventilator 40 10/08/16 20:15 40 10/08/16 20:00 100 10/08/16 20:00 40 10/08/16 20:00 98.6 106 19 112/72 99 Mechanical Ventilator 40 Height (Feet): 6 Height (Inches): 2.00 Weight (Pounds): 126 HEENT: anicteric Respiratory/Chest: normal breath sounds Cardiovascular: normal rate Abdomen: no organomegaly Laboratory Tests Test 10/09/16 05:20 10/09/16 13:44 White Blood Count 11.4 K/UL (4.8-10.8) H Red Blood Count 3.08 M/UL (4.70-6.10) L Hemoglobin 8.3 G/DL (14.2-18.0) L Hematocrit 28.3 % (42.0-52.0) L Mean Corpuscular Volume 92 FL (80-99) Mean Corpuscular Hemoglobin 27.0 PG (27.0-31.0) Mean Corpuscular Hemoglobin Concent 29.4 G/DL (32.0-36.0) L Red Cell Distribution Width 15.5 % (11.6-14.8) H Platelet Count 371 K/UL (150-450) Mean Platelet Volume 6.8 FL (6.5-10.1) Neutrophils (%) (Auto) 80.6 % (45.0-75.0) H Lymphocytes (%) (Auto) 10.2 % (20.0-45.0) L Monocytes (%) (Auto) 6.8 % (1.0-10.0) Eosinophils (%) (Auto) 1.8 % (0.0-3.0) Basophils (%) (Auto) 0.7 % (0.0-2.0) Sodium Level 142 mEQ/L (135-145) Potassium Level 4.0 mEQ/L (3.4-4.9) Chloride Level 97 mEQ/L (98-107) L Carbon Dioxide Level 39 mEQ/L (20-30) H Anion Gap 6 (5-15) Blood Urea Nitrogen 10 mg/dL (7-23) Creatinine 0.4 mg/dL (0.7-1.2) L Estimat Glomerular Filtration Rate > 60 mL/min (>60) Glucose Level 121 mg/dL (74-106) H Calcium Level 8.6 mg/dL (8.6-10.2) Phosphorus Level 3.1 mg/dL (2.5-4.8) Magnesium Level 2.2 mg/dL (1.7-2.5) Total Bilirubin < 0.2 mg/dL (0.0-1.2) Aspartate Amino Transf (AST/SGOT) 13 U/L (5-40) Alanine Aminotransferase (ALT/SGPT) 19 U/L (3-41) Alkaline Phosphatase 87 U/L (40-129) Total Protein 5.8 g/dL (6.6-8.7) L Albumin 2.4 g/dL (3.5-5.2) L Globulin 3.4 g/dL Albumin/Globulin Ratio 0.7 (1.0-2.7) L RBC Folate Hemolysate Pending Red Blood Cell Folate Pending Current Medications Medications (Trade) Dose Ordered Sig/Shraddha Route PRN Reason Start Time Stop Time Status Last Admin Dose Admin Acetaminophen (Tylenol) 650 mg Q4H PRN ORAL fever>100.5 10/05/16 11:30 11/04/16 11:29 Albuterol/ Ipratropium (DuoNeb 0.5-3(2.5)mg/3ml) 3 ml Q4H PRN HHN Shortness of Breath 10/05/16 11:30 10/10/16 11:29 10/08/16 20:24 Ceftazidime 2 gm/ Dextrose 110 ml @ 220 mls/hr Q8HR IV 10/05/16 14:00 10/12/16 13:59 10/09/16 14:07 Dextrose (Dextrose 50%) STAT PRN IV Hypoglycemia 10/05/16 11:30 11/04/16 11:29 Insulin Aspart (NovoLOG) start when feeding started Q6HR SUBQ 10/05/16 12:00 11/04/16 11:59 10/09/16 18:28 Iron Sucrose/ Sodium Chloride (Venofer/Sodium Chloride) 60 ml @ 240 mls/hr BEDTIME IVPB 10/06/16 21:00 10/10/16 21:14 10/08/16 20:50 Lorazepam (Ativan 2mg/ml 1ml) 1 mg Q4H PRN IV For Anxiety 10/05/16 11:30 10/12/16 11:29 10/09/16 01:31 Metronidazole (Flagyl) 100 ml @ 100 mls/hr Q8HR IVPB 10/05/16 14:00 10/12/16 13:59 10/09/16 14:06 Morphine Sulfate (Morphine Sulfate) 4 mg Q4H PRN IVP Pain 4-10 10/05/16 11:30 10/12/16 11:29 10/08/16 00:06 Ondansetron HCl (Zofran) 4 mg Q6H PRN IVP Nausea & Vomiting 10/05/16 11:30 11/04/16 11:29 Pantoprazole (Protonix) 40 mg DAILY IVP 10/06/16 09:00 11/05/16 08:59 10/09/16 10:08 Polyethylene Glycol 17 gm 17 gm DAILYPRN PRN ORAL Constipation 10/05/16 11:30 11/04/16 11:29 Tobramycin Sulfate (Nebcin) 300 mg Q12HR@10,22 INH 10/07/16 22:00 10/14/16 21:59 10/09/16 19:07 KIMBERLEE HINKLE M.D. Oct 09, 2016 19:55
[2016-10-09 20:00] VITALS: BP 123/92
[2016-10-09] MEDS: Iron Sucrose 100 MG in NS 55 ML IVPB SCH (20:06)
[2016-10-10] MEDS: NovoLOG Insulin Flexpen SUBQ SCH ×4 (00:39→18:44)
[2016-10-10 00:50] VITALS: BP 109/61
[2016-10-10] MEDS: LORazepam Inj 2mg/ml 1ml IV PRN (01:29)
[2016-10-10 04:00] VITALS: BP 107/69
[2016-10-10] MEDS: CefTAZidime 2 GM in D5W 110 ML IV SCH (05:29)
[2016-10-10] MEDS: metroNIDAZOLE 500mg 100 ML IVPB SCH ×3 (06:34→22:44)
[2016-10-10] MEDS: DuoNeb 0.5-3(2.5)mg/3ml neb HHN PRN ×2 (07:07→23:55)
[2016-10-10 08:00] VITALS: BP 100/64
[2016-10-10] MEDS: Tobramycin for inhalation INH SCH ×2 (09:23→19:30)
--- NOTE | 2016-10-10 09:24 | Diagnostic Imaging Report ---
Indication: Post intubation Technique: One view of the chest Comparison: One half hour earlier Findings: Lungs are hyperinflated. Interim placement of endotracheal tube, tip in good position approximately 5 cm above the suellen. Normal heart size. Impression: Satisfactory intubation COPD changes
--- NOTE | 2016-10-10 09:24 | Diagnostic Imaging Report ---
Clinical history: Shortness of breath. Technique: Portable AP chest radiograph was obtained. Comparison: 09/27/16. Findings: The distal enteric tube is not visualized and appropriate positioning is not evaluated. There is no significant interval change in the interval, allowing for differences in technique and positioning. Impression: 1. Enteric tube is in the appropriate position. 2. The distal enteric tube is not visualized. Consider KUB to confirm appropriate positioning. 3. No evidence of pneumonia or pulmonary edema.
--- NOTE | 2016-10-10 09:24 | Cardiology Report ---
APPROVED REPORT EXAM: Two-dimensional and M-mode echocardiogram with Doppler and color Doppler. INDICATION Left ventricular function M-Mode DIMENSIONS IVSd0.7 (0.7-1.1cm)Left Atrium (MM)2.8 (1.6-4.0cm) LVDd4.4 (3.5-5.6cm)Aortic Root3.2 (2.0-3.7cm) PWd0.7 (0.7-1.1cm)Aortic Cusp Exc.2.0 (1.5-2.0cm) LVDs2.9 (2.5-4.0cm) PWs1.1 cm Technically difficult study due to poor acoustic windows. Normal left ventricular chamber size, systolic function and wall motion. Left ventricular ejection fraction estimated to be 55-60 %. No evidence of left ventricular hypertrophy. No evidence of pericardial fat or effusion. Mild bi-atrial enlargement by 2D. Focal aortic valve sclerosis with adequate cusp excursion Thickened mitral valve leaflets with normal excursion. Mitral annulus and aortic root calcification. Pulmonic valve is well visualized. Normal tricuspid valve structure. IVC is normal in size with minimal physiologic collapse. RA pressure of 10mmHg. A color flow and spectral Doppler study was performed and revealed: No aortic regurgitation. Trace mitral regurgitation. Left ventricular diastolic dysfunction grade 1. Moderate tricuspid regurgitation. Tricuspid systolic velocities suggests peak right ventricular systolic pressure of 66 mmHg Consistent with severe pulmonary hypertension.
[2016-10-10] MEDS: Pantoprazole Inj IVP SCH (10:06)
--- NOTE | 2016-10-10 10:53 | General Progress Note ---
Assessment/Plan Assessment/Plan Assessment - abnormal LFT - resolved - loose stools - Leukocytosis - resolving - COPD - respiratory failure - s/p trach and PEG - dysphagia - OB (+) - possibly due to bleeding at time of PEG or Trach. Need to repeat in few weeks. Recommendations - check C Diff - follow LFT - elevate HOB - GT care - repeat stool OB in 2-3 weeks Subjective Allergies: Coded Allergies: No Known Allergies (Unverified , 06/17/16) Subjective above noted tolerating TF comfortable OB (+) noted, but specimen obtained after trach and PEG procedures Objective Last 24 Hour Vital Signs Date Time Temp Pulse Resp B/P Pulse Ox O2 Delivery O2 Flow Rate FiO2 10/10/16 09:22 82 16 100 Mechanical Ventilator 40 10/10/16 09:10 40 10/10/16 09:09 91 15 100 Mechanical Ventilator 40 10/10/16 09:08 91 15 40 10/10/16 07:52 89 10/10/16 07:51 40 10/10/16 07:18 98 16 98 Mechanical Ventilator 40 10/10/16 07:07 40 10/10/16 07:06 99 16 100 Mechanical Ventilator 40 10/10/16 07:05 99 15 40 10/10/16 05:07 93 16 40 10/10/16 04:00 96.8 96 16 107/69 100 Mechanical Ventilator 40 10/10/16 04:00 40 10/10/16 03:48 100 10/10/16 03:13 91 16 40 10/10/16 00:55 100 16 40 10/10/16 00:50 97.3 95 16 109/61 100 Mechanical Ventilator 40 10/10/16 00:00 40 10/09/16 23:44 97 10/09/16 22:52 97 16 40 10/09/16 21:03 101 16 40 10/09/16 20:00 93 10/09/16 20:00 97.7 98 19 123/92 100 Trach Collar 10/09/16 20:00 50 10/09/16 19:10 100 16 100 Mechanical Ventilator 40 10/09/16 19:00 40 10/09/16 19:00 98 16 40 10/09/16 19:00 98 16 100 Mechanical Ventilator 40 10/09/16 16:59 96 16 40 10/09/16 16:38 97.5 94 18 97/72 100 Mechanical Ventilator 10/09/16 16:33 50 10/09/16 16:00 98 10/09/16 14:43 100 16 40 10/09/16 12:53 100 16 40 10/09/16 12:00 97.5 103 18 111/58 100 Mechanical Ventilator 40 10/09/16 11:42 98 10/09/16 11:42 50 Intake and Output 10/09/16 10/10/16 19:00 07:00 Intake Total 1020 ml 1190 ml Output Total 175 ml 750 ml Balance 845 ml 440 ml Free Water 300 ml 200 ml IV Total 270 ml Tube Feeding 720 ml 720 ml Output Urine Total 175 ml 300 ml Stool Total 450 ml # Bowel Movements 3 Laboratory Tests 10/09/16 13:44: RBC Folate Hemolysate [Pending], Red Blood Cell Folate [Pending] Height (Feet): 6 Height (Inches): 2.00 Weight (Pounds): 126 Objective Elderly AA man NCAT (+) trach Coarse BS RRR soft NT abdomen, (+) GT responsive ROSEMARY BURROUGHS Oct 10, 2016 10:53
--- NOTE | 2016-10-10 11:16 | Infectious Diseases Prog Note ---
Assessment/Plan Assessment/Plan ASSESSMENT: 66 y/o male with: // COPD exacerbation - delayed SCx 4+ PSA pt has increased secretions - CXR 09/27: Lungs are hyperinflated. No new infiltrates - negative: influenza // Leukocytosis - improving l ( post op, 10/01 SP steroids ) // Diarrhea x 1 resolved C Diff Neg // Febrile low grade // HIV and Hep B/C : neg // - PEG 10/04 // Acute VDRF - intubated 09/20, 10/03 SP trach // Severe pulmonary HTN / grade I diastolic dysfunction / mod TR // Pulmonary nodules // Chronic RLE DVT // Tobacco abuse // NH resident // Negative MRSA, VRE screens // NKDA // Full Code PLAN: - on Jairon nebs d# 11 / , add Ceftazidime d# / cont Flagyl d # 9 /10 ( 10/04 SP oral Vanco d# 3 ) ( 09/24 SP amikacin, invanz d# 5 / 5 ) ( 09/21 SP IV vancomycin d# 2 ) - taper steroids per pulm - monitor CBC, temperatures - monitor BMP - monitor CXR - vent support, wean as tolerated. Subjective Constitutional: Denies: anorexia, chills, drenching sweats, fatigue, fever, no symptoms, other Allergies: Coded Allergies: No Known Allergies (Unverified , 06/17/16) Objective Vital Signs Last 24 Hour Vital Signs Date Time Temp Pulse Resp B/P Pulse Ox O2 Delivery O2 Flow Rate FiO2 10/10/16 09:22 82 16 100 Mechanical Ventilator 40 10/10/16 09:10 40 10/10/16 09:09 91 15 100 Mechanical Ventilator 40 10/10/16 09:08 91 15 40 10/10/16 08:00 97.7 101 16 100/64 98 Trach Collar 10/10/16 07:52 89 10/10/16 07:51 40 10/10/16 07:18 98 16 98 Mechanical Ventilator 40 10/10/16 07:07 40 10/10/16 07:06 99 16 100 Mechanical Ventilator 40 10/10/16 07:05 99 15 40 10/10/16 05:07 93 16 40 10/10/16 04:00 96.8 96 16 107/69 100 Mechanical Ventilator 40 10/10/16 04:00 40 10/10/16 03:48 100 10/10/16 03:13 91 16 40 10/10/16 00:55 100 16 40 10/10/16 00:50 97.3 95 16 109/61 100 Mechanical Ventilator 40 10/10/16 00:00 40 10/09/16 23:44 97 10/09/16 22:52 97 16 40 10/09/16 21:03 101 16 40 10/09/16 20:00 93 10/09/16 20:00 97.7 98 19 123/92 100 Trach Collar 10/09/16 20:00 50 10/09/16 19:10 100 16 100 Mechanical Ventilator 40 10/09/16 19:00 40 10/09/16 19:00 98 16 40 10/09/16 19:00 98 16 100 Mechanical Ventilator 40 10/09/16 16:59 96 16 40 10/09/16 16:38 97.5 94 18 97/72 100 Mechanical Ventilator 10/09/16 16:33 50 10/09/16 16:00 98 10/09/16 14:43 100 16 40 10/09/16 12:53 100 16 40 10/09/16 12:00 97.5 103 18 111/58 100 Mechanical Ventilator 40 10/09/16 11:42 98 10/09/16 11:42 50 Height (Feet): 6 Height (Inches): 2.00 Weight (Pounds): 126 HEENT: atraumatic Respiratory/Chest: no respiratory distress Cardiovascular: regularly irregular Abdomen: no organomegaly Microbiology Date/Time Source Procedure Growth Status 10/09/16 06:30 Stool Clostridium difficile Toxin Assay - Final Complete Laboratory Tests Test 10/09/16 13:44 RBC Folate Hemolysate Pending Red Blood Cell Folate Pending Current Medications Medications (Trade) Dose Ordered Sig/Shraddha Route PRN Reason Start Time Stop Time Status Last Admin Dose Admin Acetaminophen (Tylenol) 650 mg Q4H PRN ORAL fever>100.5 10/05/16 11:30 11/04/16 11:29 Albuterol/ Ipratropium (DuoNeb 0.5-3(2.5)mg/3ml) 3 ml Q4H PRN HHN Shortness of Breath 10/05/16 11:30 10/10/16 11:29 10/10/16 07:07 Ceftazidime/ Sodium Chloride (Fortaz/Sodium Chloride) 110 ml @ 220 mls/hr Q8HR IV 10/10/16 14:00 10/12/16 13:59 Dextrose (Dextrose 50%) STAT PRN IV Hypoglycemia 10/05/16 11:30 11/04/16 11:29 Insulin Aspart (NovoLOG) start when feeding started Q6HR SUBQ 10/05/16 12:00 11/04/16 11:59 10/10/16 06:37 Iron Sucrose/ Sodium Chloride (Venofer/Sodium Chloride) 60 ml @ 240 mls/hr BEDTIME IVPB 10/06/16 21:00 10/10/16 21:14 10/09/16 20:06 Lorazepam (Ativan 2mg/ml 1ml) 1 mg Q4H PRN IV For Anxiety 10/05/16 11:30 10/12/16 11:29 10/10/16 01:29 Metronidazole (Flagyl) 100 ml @ 100 mls/hr Q8HR IVPB 10/05/16 14:00 10/12/16 13:59 10/10/16 06:34 Morphine Sulfate (Morphine Sulfate) 4 mg Q4H PRN IVP Pain 4-10 10/05/16 11:30 10/12/16 11:29 10/08/16 00:06 Ondansetron HCl (Zofran) 4 mg Q6H PRN IVP Nausea & Vomiting 10/05/16 11:30 11/04/16 11:29 Pantoprazole (Protonix) 40 mg DAILY IVP 10/06/16 09:00 11/05/16 08:59 10/10/16 10:06 Polyethylene Glycol 17 gm 17 gm DAILYPRN PRN ORAL Constipation 10/05/16 11:30 11/04/16 11:29 Tobramycin Sulfate 300 mg 300 mg Q12HR@10,22 INH 10/07/16 22:00 10/14/16 21:59 10/10/16 09:23 KIMBERLEE HINKLE M.D. Oct 10, 2016 11:16
--- NOTE | 2016-10-10 11:54 | Pulmonology Progress Note ---
Assessment/Plan Problems: (1) Respiratory failure (2) COPD exacerbation (3) Emphysema of lung Respiratory: monitor respiratory rate, adjust FIO2 Cardiac: continue to monitor HR/BP Renal: F/U I&O, keep IV fluid Infectious Disease: check cultures Gastrointestinal: continue feedings/current rate, hold feedings Endocrine: check TSH, check HgA1C, continue sliding scale insulin Hematologic: transfuse if hgb<8.5 Neurologic: PRN Morphine, keep patient comfortable Prophylaxis: Protonix, Heparin Disposition: keep in ICU Notes Reviewed: early intervention school psychologist, renal 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, showcase maker Subjective ROS Limited/Unobtainable: No Constitutional: Reports: no symptoms HEENT: Repors: no symptoms Allergies: Coded Allergies: No Known Allergies (Unverified , 06/17/16) Objective Last 24 Hour Vital Signs Date Time Temp Pulse Resp B/P Pulse Ox O2 Delivery O2 Flow Rate FiO2 10/10/16 11:47 40 10/10/16 11:47 85 10/10/16 11:09 89 22 40 10/10/16 09:22 82 16 100 Mechanical Ventilator 40 10/10/16 09:10 40 10/10/16 09:09 91 15 100 Mechanical Ventilator 40 10/10/16 09:08 91 15 40 10/10/16 08:00 97.7 101 16 100/64 98 Trach Collar 10/10/16 07:52 89 10/10/16 07:51 40 10/10/16 07:18 98 16 98 Mechanical Ventilator 40 10/10/16 07:07 40 10/10/16 07:06 99 16 100 Mechanical Ventilator 40 10/10/16 07:05 99 15 40 10/10/16 05:07 93 16 40 10/10/16 04:00 96.8 96 16 107/69 100 Mechanical Ventilator 40 10/10/16 04:00 40 10/10/16 03:48 100 10/10/16 03:13 91 16 40 10/10/16 00:55 100 16 40 10/10/16 00:50 97.3 95 16 109/61 100 Mechanical Ventilator 40 10/10/16 00:00 40 10/09/16 23:44 97 10/09/16 22:52 97 16 40 10/09/16 21:03 101 16 40 10/09/16 20:00 93 10/09/16 20:00 97.7 98 19 123/92 100 Trach Collar 10/09/16 20:00 50 10/09/16 19:10 100 16 100 Mechanical Ventilator 40 10/09/16 19:00 40 10/09/16 19:00 98 16 40 10/09/16 19:00 98 16 100 Mechanical Ventilator 40 10/09/16 16:59 96 16 40 10/09/16 16:38 97.5 94 18 97/72 100 Mechanical Ventilator 10/09/16 16:33 50 10/09/16 16:00 98 10/09/16 14:43 100 16 40 10/09/16 12:53 100 16 40 10/09/16 12:00 97.5 103 18 111/58 100 Mechanical Ventilator 40 Intake and Output 10/09/16 10/10/16 18:59 06:59 Intake Total 1120 ml 1140 ml Output Total 525 ml 750 ml Balance 595 ml 390 ml Free Water 300 ml 200 ml IV Total 100 ml 220 ml Tube Feeding 720 ml 720 ml Output Urine Total 525 ml 300 ml Stool Total 450 ml # Bowel Movements 1 3 Objective Status: awake HEENT: atraumatic, normocephalic Lungs: clear, decreased breath sounds Heart: HR/BP stable Abdomen: soft, non-tender Extremities: no C/C/E, edema Microbiology Date/Time Source Procedure Growth Status 10/09/16 06:30 Stool Clostridium difficile Toxin Assay - Final Complete Laboratory Tests 10/09/16 13:44: RBC Folate Hemolysate [Pending], Red Blood Cell Folate [Pending] Current Medications Medications (Trade) Dose Ordered Sig/Shraddha Route PRN Reason Start Time Stop Time Status Last Admin Dose Admin Acetaminophen (Tylenol) 650 mg Q4H PRN ORAL fever>100.5 10/05/16 11:30 11/04/16 11:29 Ceftazidime/ Sodium Chloride (Fortaz/Sodium Chloride) 110 ml @ 220 mls/hr Q8HR IV 10/10/16 14:00 10/12/16 13:59 Dextrose (Dextrose 50%) STAT PRN IV Hypoglycemia 10/05/16 11:30 11/04/16 11:29 Insulin Aspart (NovoLOG) start when feeding started Q6HR SUBQ 10/05/16 12:00 11/04/16 11:59 10/10/16 06:37 Iron Sucrose/ Sodium Chloride (Venofer/Sodium Chloride) 60 ml @ 240 mls/hr BEDTIME IVPB 10/06/16 21:00 10/10/16 21:14 10/09/16 20:06 Lorazepam (Ativan 2mg/ml 1ml) 1 mg Q4H PRN IV For Anxiety 10/05/16 11:30 10/12/16 11:29 10/10/16 01:29 Metronidazole (Flagyl) 100 ml @ 100 mls/hr Q8HR IVPB 10/05/16 14:00 10/12/16 13:59 10/10/16 06:34 Morphine Sulfate (Morphine Sulfate) 4 mg Q4H PRN IVP Pain 4-10 10/05/16 11:30 10/12/16 11:29 10/08/16 00:06 Ondansetron HCl (Zofran) 4 mg Q6H PRN IVP Nausea & Vomiting 10/05/16 11:30 11/04/16 11:29 Pantoprazole (Protonix) 40 mg DAILY IVP 10/06/16 09:00 11/05/16 08:59 10/10/16 10:06 Polyethylene Glycol 17 gm 17 gm DAILYPRN PRN ORAL Constipation 10/05/16 11:30 11/04/16 11:29 Tobramycin Sulfate 300 mg 300 mg Q12HR@10,22 INH 10/07/16 22:00 10/14/16 21:59 10/10/16 09:23 REN WRIGHT Oct 10, 2016 11:54
[2016-10-10 12:00] VITALS: BP 110/68
[2016-10-10 13:16] LABS: HEMATOCRIT 26.6 % (37.5-51.0)
[2016-10-10] MEDS: NS IV SCH ×3 (13:29→22:01)
[2016-10-10] MEDS: CEFTAZIDIME IV SCH ×3 (13:29→22:01)
[2016-10-10 16:00] VITALS: BP 99/67
[2016-10-10] MEDS ORDERED: NS 275ml ONE (16:28)
[2016-10-10] MEDS ORDERED: Tubing IV Secondary IV ONE (16:28)
--- NOTE | 2016-10-10 18:23 | Internal Med Progress Note ---
Subjective Date of Service: Oct 10, 2016 Physician Name Tadeo Verdin Attending Physician Steve Radre MD Current Medications Medications (Trade) Dose Ordered Sig/Shraddha Route PRN Reason Start Time Stop Time Status Last Admin Dose Admin Acetaminophen (Tylenol) 650 mg Q4H PRN ORAL fever>100.5 10/05/16 11:30 11/04/16 11:29 Albuterol/ Ipratropium (DuoNeb 0.5-3(2.5)mg/3ml) 3 ml Q4H PRN HHN Shortness of Breath 10/10/16 18:15 10/15/16 18:14 Ceftazidime/ Sodium Chloride (Fortaz/Sodium Chloride) 110 ml @ 220 mls/hr Q8HR IV 10/10/16 14:00 10/12/16 13:59 10/10/16 13:35 Dextrose (Dextrose 50%) STAT PRN IV Hypoglycemia 10/05/16 11:30 11/04/16 11:29 Insulin Aspart (NovoLOG) start when feeding started Q6HR SUBQ 10/05/16 12:00 11/04/16 11:59 10/10/16 06:37 Iron Sucrose/ Sodium Chloride (Venofer/Sodium Chloride) 60 ml @ 240 mls/hr BEDTIME IVPB 10/06/16 21:00 10/10/16 21:14 10/09/16 20:06 Lorazepam (Ativan 2mg/ml 1ml) 1 mg Q4H PRN IV For Anxiety 10/05/16 11:30 10/12/16 11:29 10/10/16 01:29 Metronidazole (Flagyl) 100 ml @ 100 mls/hr Q8HR IVPB 10/05/16 14:00 10/12/16 13:59 10/10/16 13:26 Morphine Sulfate (Morphine Sulfate) 4 mg Q4H PRN IVP Pain 4-10 10/05/16 11:30 10/12/16 11:29 10/08/16 00:06 Ondansetron HCl (Zofran) 4 mg Q6H PRN IVP Nausea & Vomiting 10/05/16 11:30 11/04/16 11:29 Pantoprazole (Protonix) 40 mg DAILY IVP 10/06/16 09:00 11/05/16 08:59 10/10/16 10:06 Polyethylene Glycol 17 gm 17 gm DAILYPRN PRN ORAL Constipation 10/05/16 11:30 11/04/16 11:29 Tobramycin Sulfate 300 mg 300 mg Q12HR@10,22 INH 10/07/16 22:00 10/14/16 21:59 10/10/16 09:23 Allergies: Coded Allergies: No Known Allergies (Unverified , 06/17/16) ROS Limited/Unobtainable: Yes Subjective 66 YO M admitted with respiratory failure. JORDAN. Intubated and sedated. S/P tracheostomy 10/03/16. S/P PEG 10/04/16. Cover for Int Med-Dr Rader. Objective Last Vital Signs Date Time Temp Pulse Resp B/P Pulse Ox O2 Delivery O2 Flow Rate FiO2 10/10/16 16:54 82 16 40 10/10/16 16:00 97.8 99/67 96 Mechanical Ventilator Microbiology Date/Time Source Procedure Growth Status 10/09/16 06:30 Stool Clostridium difficile Toxin Assay - Final Complete Intake and Output 10/09/16 10/10/16 19:00 07:00 Intake Total 1020 ml 1190 ml Output Total 175 ml 750 ml Balance 845 ml 440 ml Free Water 300 ml 200 ml IV Total 270 ml Tube Feeding 720 ml 720 ml Output Urine Total 175 ml 300 ml Stool Total 450 ml # Bowel Movements 3 Objective General Appearance: moderate distress, thin EENT: PERRL/EOMI, normal ENT inspection Neck: non-tender, normal alignment, supple Cardiovascular: normal peripheral pulses, normal rate, regular rhythm, no gallop/murmur, no JVD Respiratory/Chest: Trach; Mech Vent; trach; respiratory distress, crackles/ rales, rhonchi - bilaterally, expiratory wheezing Abdomen: non tender, soft, no organomegaly, no mass, decreased bowel sounds Extremities: normal range of motion Skin: normal pigmentation, warm/dry Assessment/Plan Problem List: (1) Lung nodule (2) DVT (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 (3) Acute respiratory failure Assessment & Plan: S/P tracheostomy 10/03/16. Cont vent per pulmonary (4) COPD exacerbation Assessment & Plan: Continue duoneb. Continue vent per pulmonary. (5) Pneumonia Assessment & Plan: continue ceftazidime and IV flagyl per ID-continue tobramycin nebs (6) Leukocytosis Assessment & Plan: Continue PO vanco and IV flagyl per ID. (7) Dysphagia Assessment & Plan: See GI consult- S/P PEG 10/04/16. Status: not improved Assessment/Plan Discharge Planning: [facility] TADEO VERDIN Oct 10, 2016 18:23
--- NOTE | 2016-10-10 19:55 | Wound Care Consultation ---
Wound Assessment Wound Assessment : Wound Present on Admission: No New Wound: Yes Status Change of Wound: No Wound Location Body Site Modif: mid Wound Location Body Site: sacral Wound Type: pressure ulcer Nisha Test: Does not Nisha Pressure Ulcer Stage: II Wound Thickness: Partial Thickness Wound Length: 1.5 Wound Width: 1.0 Wound Depth: 0.1 Percent of Wound [place]/Red: 100 Wound Drainage Description: Serosanguineous Wound Drainage Amount: Scant Wound Drainage Odor: None/Absent Tissue Surrounding Wound: Erythemic Wound General Appearance: Reddened Wound Comment #1 Sacral stage II Pressure ulcer Recommendation -Sacral stage II pressure ulcer Cleanse with saline, pat dry, apply Triad cream, cover with bordered gauze daily and PRN soiled/dislodged -Keep clean and dry -Low air loss mattress -Turn and reposition -Optimize nutrition -Offload both heels -Assess and f/u accordingly for any changes CARRILLO HARRISON RN Oct 10, 2016 19:55
[2016-10-10 20:00] VITALS: BP 116/73
[2016-10-10] MEDS: Iron Sucrose 100 MG in NS 55 ML IVPB SCH (21:19)
[2016-10-11] VITALS: BP 98/66
[2016-10-11] MEDS: DuoNeb 0.5-3(2.5)mg/3ml neb HHN PRN ×5 (04:25→19:13)
[2016-10-11 04:30] VITALS: BP 115/74
[2016-10-11] MEDS: NS IV SCH ×3 (05:20→21:20)
[2016-10-11] MEDS: CEFTAZIDIME IV SCH ×3 (05:20→21:20)
[2016-10-11 05:35] LABS: BASOPHILS % (AUTO) 0.5 % (0.0-2.0); EOSINOPHILS % (AUTO) 1.6 % (0.0-3.0); LYMPHOCYTES % (AUTO) 11.3 % (20.0-45.0); MEAN CORPUSCULAR HGB CONC 30.2 G/DL (32.0-36.0); MEAN CORPUSCULAR VOLUME 93 FL (80-99); MEAN PLATELET VOLUME 6.2 FL (6.5-10.1); MONOCYTES % (AUTO) 5.4 % (1.0-10.0); NEUTROPHILS % (AUTO) 81.3 % (45.0-75.0); PLATELET COUNT 345 K/UL (150-450); RED CELL DISTRIBUTION WIDTH 16.3 % (11.6-14.8); WHITE BLOOD COUNT 11.5 K/UL (4.8-10.8)
[2016-10-11] MEDS: NovoLOG Insulin Flexpen SUBQ SCH ×4 (05:35→18:08)
[2016-10-11] MEDS: metroNIDAZOLE 500mg 100 ML IVPB SCH ×3 (06:05→21:20)
[2016-10-11 06:09] LABS: ANION GAP 3 (5-15); CALCIUM 8.6 mg/dL (8.6-10.2); CARBON DIOXIDE 40 mEQ/L (20-30); CHLORIDE 96 mEQ/L (98-107); CREATININE 0.4 mg/dL (0.7-1.2); GLOMERULAR FILTRATION RATE > 60 mL/min (>60); HEMOLYSIS 1; POTASSIUM 4.3 mEQ/L (3.4-4.9); SODIUM 139 mEQ/L (135-145)
[2016-10-11 08:00] VITALS: BP 118/76
[2016-10-11] MEDS: Pantoprazole Inj IVP SCH (09:17)
[2016-10-11] MEDS: Tobramycin for inhalation INH SCH ×2 (10:25→22:57)
--- NOTE | 2016-10-11 11:48 | Pulmonology Progress Note ---
Assessment/Plan Problems: (1) Respiratory failure (2) COPD exacerbation (3) Emphysema of lung Assessment/Plan improving tolerating diet weaning trials check eletrolytes doing better stable for transfer to a subacute facility Subjective ROS Limited/Unobtainable: No Constitutional: Reports: no symptoms HEENT: Repors: no symptoms Allergies: Coded Allergies: No Known Allergies (Unverified , 06/17/16) Objective Last 24 Hour Vital Signs Date Time Temp Pulse Resp B/P Pulse Ox O2 Delivery O2 Flow Rate FiO2 10/11/16 11:24 99 17 100 Mechanical Ventilator 40 10/11/16 11:08 40 10/11/16 11:06 95 17 100 Mechanical Ventilator 40 10/11/16 11:03 95 17 40 10/11/16 09:04 98 17 40 10/11/16 08:47 92 17 100 Mechanical Ventilator 40 10/11/16 08:26 40 10/11/16 08:19 95 17 40 10/11/16 08:00 97.9 92 16 118/76 92 Mechanical Ventilator 40 10/11/16 08:00 94 10/11/16 08:00 40 10/11/16 07:58 90 17 100 Mechanical Ventilator 40 10/11/16 07:06 99 17 40 10/11/16 05:28 107 17 40 10/11/16 04:30 98.1 95 16 115/74 99 Mechanical Ventilator 40 10/11/16 04:26 40 10/11/16 04:25 96 19 100 Mechanical Ventilator 40 10/11/16 04:00 91 10/11/16 04:00 40 10/11/16 03:27 93 16 40 10/11/16 01:03 89 17 40 10/11/16 00:00 85 10/11/16 00:00 96.0 88 16 98/66 97 Mechanical Ventilator 40 10/11/16 00:00 40 10/10/16 23:56 94 17 97 Mechanical Ventilator 40 10/10/16 23:45 40 10/10/16 23:45 91 17 97 Mechanical Ventilator 40 10/10/16 23:30 91 17 40 10/10/16 21:12 93 16 40 10/10/16 20:17 40 10/10/16 20:00 89 10/10/16 20:00 99.1 94 16 116/73 100 Mechanical Ventilator 40 4/6/17 19:40 89 17 100 Mechanical Ventilator 40 10/10/16 19:30 90 17 40 10/10/16 19:30 40 10/10/16 19:30 90 17 100 Mechanical Ventilator 40 10/10/16 16:54 82 16 40 10/10/16 16:00 87 10/10/16 16:00 97.8 88 16 99/67 96 Mechanical Ventilator 40 10/10/16 16:00 40 10/10/16 14:48 95 16 40 10/10/16 13:19 102 17 40 10/10/16 12:00 97.5 93 18 110/68 98 Trach Collar Intake and Output 10/10/16 10/11/16 19:00 07:00 Intake Total 1070 ml 1000 ml Output Total 700 ml 931 ml Balance 370 ml 69 ml Free Water 200 ml 230 ml IV Total 210 ml 110 ml Tube Feeding 660 ml 660 ml Output Urine Total 700 ml 930 ml Stool Total 1 ml Objective Status: awake HEENT: atraumatic, normocephalic Lungs: clear, decreased breath sounds Heart: HR/BP stable Abdomen: soft, non-tender Extremities: no C/C/E, edema Microbiology Date/Time Source Procedure Growth Status 10/09/16 06:30 Stool Clostridium difficile Toxin Assay - Final Complete Laboratory Tests 10/11/16 03:45: White Blood Count 11.5H, Red Blood Count 2.90L, Hemoglobin 8.1L, Hematocrit 26.9L, Mean Corpuscular Volume 93, Mean Corpuscular Hemoglobin 28.0, Mean Corpuscular Hemoglobin Concent 30.2L, Red Cell Distribution Width 16.3H, Platelet Count 345, Mean Platelet Volume 6.2L, Neutrophils (%) (Auto) 81.3H, Lymphocytes (%) (Auto) 11.3L, Monocytes (%) (Auto) 5.4, Eosinophils (%) (Auto) 1.6, Basophils (%) (Auto) 0.5, Sodium Level 139, Potassium Level 4.3, Chloride Level 96L, Carbon Dioxide Level 40H, Anion Gap 3L, Blood Urea Nitrogen 10, Creatinine 0.4L, Estimat Glomerular Filtration Rate > 60, Glucose Level 103, Calcium Level 8.6 Current Medications Medications (Trade) Dose Ordered Sig/Shraddha Route PRN Reason Start Time Stop Time Status Last Admin Dose Admin Acetaminophen (Tylenol) 650 mg Q4H PRN ORAL fever>100.5 10/05/16 11:30 11/04/16 11:29 Albuterol/ Ipratropium (DuoNeb 0.5-3(2.5)mg/3ml) 3 ml Q4H PRN HHN Shortness of Breath 10/10/16 18:15 10/15/16 18:14 10/11/16 11:06 Ceftazidime/ Sodium Chloride (Fortaz/Sodium Chloride) 110 ml @ 220 mls/hr Q8HR IV 10/10/16 14:00 10/12/16 13:59 10/11/16 05:20 Dextrose (Dextrose 50%) STAT PRN IV Hypoglycemia 10/05/16 11:30 11/04/16 11:29 Insulin Aspart (NovoLOG) start when feeding started Q6HR SUBQ 10/05/16 12:00 11/04/16 11:59 10/11/16 05:35 Lorazepam (Ativan 2mg/ml 1ml) 1 mg Q4H PRN IV For Anxiety 10/05/16 11:30 10/12/16 11:29 10/10/16 01:29 Metronidazole (Flagyl) 100 ml @ 100 mls/hr Q8HR IVPB 10/05/16 14:00 10/12/16 13:59 10/11/16 06:05 Morphine Sulfate (Morphine Sulfate) 4 mg Q4H PRN IVP Pain 4-10 10/05/16 11:30 10/12/16 11:29 10/08/16 00:06 Ondansetron HCl (Zofran) 4 mg Q6H PRN IVP Nausea & Vomiting 10/05/16 11:30 11/04/16 11:29 Pantoprazole (Protonix) 40 mg DAILY IVP 10/06/16 09:00 11/05/16 08:59 10/11/16 09:17 Polyethylene Glycol (Miralax) 17 gm DAILYPRN PRN ORAL Constipation 10/05/16 11:30 11/04/16 11:29 Tobramycin Sulfate 300 mg 300 mg Q12HR@10,22 INH 10/07/16 22:00 10/14/16 21:59 10/11/16 10:25 REN WRIGHT Oct 11, 2016 11:48
[2016-10-11 12:00] VITALS: BP 104/68
[2016-10-11 15:59] VITALS: BP 98/68
--- NOTE | 2016-10-11 17:19 | Internal Med Progress Note ---
Subjective Date of Service: Oct 11, 2016 Physician Name Tadeo Verdin Attending Physician Steve Rader MD Current Medications Medications (Trade) Dose Ordered Sig/Shraddha Route PRN Reason Start Time Stop Time Status Last Admin Dose Admin Acetaminophen (Tylenol) 650 mg Q4H PRN ORAL fever>100.5 10/05/16 11:30 11/04/16 11:29 Albuterol/ Ipratropium (DuoNeb 0.5-3(2.5)mg/3ml) 3 ml Q4H PRN HHN Shortness of Breath 10/10/16 18:15 10/15/16 18:14 10/11/16 15:21 Ceftazidime/ Sodium Chloride (Fortaz/Sodium Chloride) 110 ml @ 220 mls/hr Q8HR IV 10/10/16 14:00 10/16/16 13:59 10/11/16 13:06 Dextrose (Dextrose 50%) STAT PRN IV Hypoglycemia 10/05/16 11:30 11/04/16 11:29 Insulin Aspart (NovoLOG) start when feeding started Q6HR SUBQ 10/05/16 12:00 11/04/16 11:59 10/11/16 12:11 Lorazepam (Ativan 2mg/ml 1ml) 1 mg Q4H PRN IV For Anxiety 10/05/16 11:30 10/12/16 11:29 10/10/16 01:29 Metronidazole (Flagyl) 100 ml @ 100 mls/hr Q8HR IVPB 10/05/16 14:00 10/11/16 23:59 10/11/16 14:03 Morphine Sulfate (Morphine Sulfate) 4 mg Q4H PRN IVP Pain 4-10 10/05/16 11:30 10/12/16 11:29 10/08/16 00:06 Ondansetron HCl (Zofran) 4 mg Q6H PRN IVP Nausea & Vomiting 10/05/16 11:30 11/04/16 11:29 Pantoprazole (Protonix) 40 mg DAILY IVP 10/06/16 09:00 11/05/16 08:59 10/11/16 09:17 Polyethylene Glycol (Miralax) 17 gm DAILYPRN PRN ORAL Constipation 10/05/16 11:30 11/04/16 11:29 Tobramycin Sulfate 300 mg 300 mg Q12HR@10,22 INH 10/07/16 22:00 10/14/16 21:59 10/11/16 10:25 Allergies: Coded Allergies: No Known Allergies (Unverified , 06/17/16) ROS Limited/Unobtainable: Yes Subjective 66 YO M admitted with respiratory failure. JORDAN. Intubated and sedated. Await transfer [facility]. Cover for Int [facility]-Dr Rader. Objective Last Vital Signs Date Time Temp Pulse Resp B/P Pulse Ox O2 Delivery O2 Flow Rate FiO2 10/11/16 16:00 40 10/11/16 16:00 101 10/11/16 15:59 97.2 17 98/68 100 Mechanical Ventilator Laboratory Tests Test 10/11/16 03:45 White Blood Count 11.5 K/UL (4.8-10.8) H Red Blood Count 2.90 M/UL (4.70-6.10) L Hemoglobin 8.1 G/DL (14.2-18.0) L Hematocrit 26.9 % (42.0-52.0) L Mean Corpuscular Volume 93 FL (80-99) Mean Corpuscular Hemoglobin 28.0 PG (27.0-31.0) Mean Corpuscular Hemoglobin Concent 30.2 G/DL (32.0-36.0) L Red Cell Distribution Width 16.3 % (11.6-14.8) H Platelet Count 345 K/UL (150-450) Mean Platelet Volume 6.2 FL (6.5-10.1) L Neutrophils (%) (Auto) 81.3 % (45.0-75.0) H Lymphocytes (%) (Auto) 11.3 % (20.0-45.0) L Monocytes (%) (Auto) 5.4 % (1.0-10.0) Eosinophils (%) (Auto) 1.6 % (0.0-3.0) Basophils (%) (Auto) 0.5 % (0.0-2.0) Sodium Level 139 mEQ/L (135-145) Potassium Level 4.3 mEQ/L (3.4-4.9) Chloride Level 96 mEQ/L (98-107) L Carbon Dioxide Level 40 mEQ/L (20-30) H Anion Gap 3 (5-15) L Blood Urea Nitrogen 10 mg/dL (7-23) Creatinine 0.4 mg/dL (0.7-1.2) L Estimat Glomerular Filtration Rate > 60 mL/min (>60) Glucose Level 103 mg/dL (74-106) Calcium Level 8.6 mg/dL (8.6-10.2) Microbiology Date/Time Source Procedure Growth Status 10/09/16 06:30 Stool Clostridium difficile Toxin Assay - Final Complete Intake and Output 10/10/16 10/11/16 19:00 07:00 Intake Total 1070 ml 1060 ml Output Total 700 ml 931 ml Balance 370 ml 129 ml Free Water 200 ml 230 ml IV Total 210 ml 110 ml Tube Feeding 660 ml 720 ml Output Urine Total 700 ml 930 ml Stool Total 1 ml Objective General Appearance: moderate distress, thin EENT: PERRL/EOMI, normal ENT inspection Neck: non-tender, normal alignment, supple Cardiovascular: normal peripheral pulses, normal rate, regular rhythm, no gallop/murmur, no JVD Respiratory/Chest: Trach; Mech Vent; trach; respiratory distress, crackles/ rales, rhonchi - bilaterally, expiratory wheezing Abdomen: non tender, soft, no organomegaly, no mass, decreased bowel sounds Extremities: normal range of motion Skin: normal pigmentation, warm/dry Assessment/Plan Problem List: (1) Lung nodule (2) DVT (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 (3) Acute respiratory failure Assessment & Plan: S/P tracheostomy 10/03/16. Cont vent per pulmonary (4) COPD exacerbation Assessment & Plan: Continue duoneb. Continue vent per pulmonary. (5) Pneumonia Assessment & Plan: continue ceftazidime and IV flagyl per ID-continue tobramycin nebs (6) Leukocytosis Assessment & Plan: Continue PO vanco and IV flagyl per ID. (7) Dysphagia Assessment & Plan: See GI consult- S/P PEG 10/04/16. Status: stable Assessment/Plan Discharge Planning: Health system TADEO VERDIN Oct 11, 2016 17:18
[2016-10-11] MEDS ORDERED: Tubing IV Secondary IV ONE (19:15)
[2016-10-11 20:00] VITALS: BP 104/74
--- NOTE | 2016-10-11 20:12 | General Progress Note ---
Assessment/Plan Assessment/Plan Assessment - abnormal LFT - resolved - loose stools - Leukocytosis - resolving - COPD - respiratory failure - s/p trach and PEG - dysphagia - OB (+) - possibly due to bleeding at time of PEG or Trach. Need to repeat in few weeks. Recommendations - check C Diff --> neg - follow LFT periodically - elevate HOB - GT care - repeat stool OB in 2-3 weeks Subjective Allergies: Coded Allergies: No Known Allergies (Unverified , 06/17/16) Subjective above noted tolerating TF comfortable d/c planning in progress Objective Last 24 Hour Vital Signs Date Time Temp Pulse Resp B/P Pulse Ox O2 Delivery O2 Flow Rate FiO2 10/11/16 20:00 98.9 92 18 104/74 100 Mechanical Ventilator 40 10/11/16 20:00 98 10/11/16 20:00 40 10/11/16 19:30 40 10/11/16 19:30 94 18 100 Mechanical Ventilator 40 10/11/16 19:13 94 19 40 10/11/16 19:13 97 18 97 Mechanical Ventilator 40 10/11/16 17:01 93 16 40 10/11/16 16:00 40 10/11/16 16:00 101 10/11/16 15:59 97.2 101 17 98/68 100 Mechanical Ventilator 40 10/11/16 15:34 101 17 100 Mechanical Ventilator 40 10/11/16 15:22 40 10/11/16 15:21 103 18 100 Mechanical Ventilator 40 10/11/16 15:04 103 18 40 10/11/16 13:07 90 17 40 10/11/16 12:00 98.4 102 16 104/68 100 Mechanical Ventilator 40 10/11/16 12:00 40 10/11/16 12:00 103 10/11/16 11:24 99 17 100 Mechanical Ventilator 40 10/11/16 11:08 40 10/11/16 11:06 95 17 100 Mechanical Ventilator 40 10/11/16 11:03 95 17 40 10/11/16 09:04 98 17 40 10/11/16 08:47 92 17 100 Mechanical Ventilator 40 10/11/16 08:26 40 10/11/16 08:19 95 17 40 10/11/16 08:00 97.9 92 16 118/76 92 Mechanical Ventilator 40 10/11/16 08:00 94 10/11/16 08:00 40 10/11/16 07:58 90 17 100 Mechanical Ventilator 40 10/11/16 07:06 99 17 40 10/11/16 05:28 107 17 40 10/11/16 04:30 98.1 95 16 115/74 99 Mechanical Ventilator 40 10/11/16 04:26 40 10/11/16 04:25 96 19 100 Mechanical Ventilator 40 10/11/16 04:00 91 10/11/16 04:00 40 10/11/16 03:27 93 16 40 10/11/16 01:03 89 17 40 10/11/16 00:00 85 10/11/16 00:00 96.0 88 16 98/66 97 Mechanical Ventilator 40 10/11/16 00:00 40 10/10/16 23:56 94 17 97 Mechanical Ventilator 40 10/10/16 23:45 40 10/10/16 23:45 91 17 97 Mechanical Ventilator 40 10/10/16 23:30 91 17 40 10/10/16 21:12 93 16 40 10/10/16 20:17 40 Intake and Output 10/10/16 10/11/16 19:00 07:00 Intake Total 1070 ml 1060 ml Output Total 700 ml 931 ml Balance 370 ml 129 ml Free Water 200 ml 230 ml IV Total 210 ml 110 ml Tube Feeding 660 ml 720 ml Output Urine Total 700 ml 930 ml Stool Total 1 ml Laboratory Tests 10/11/16 03:45: White Blood Count 11.5H, Red Blood Count 2.90L, Hemoglobin 8.1L, Hematocrit 26.9L, Mean Corpuscular Volume 93, Mean Corpuscular Hemoglobin 28.0, Mean Corpuscular Hemoglobin Concent 30.2L, Red Cell Distribution Width 16.3H, Platelet Count 345, Mean Platelet Volume 6.2L, Neutrophils (%) (Auto) 81.3H, Lymphocytes (%) (Auto) 11.3L, Monocytes (%) (Auto) 5.4, Eosinophils (%) (Auto) 1.6, Basophils (%) (Auto) 0.5, Sodium Level 139, Potassium Level 4.3, Chloride Level 96L, Carbon Dioxide Level 40H, Anion Gap 3L, Blood Urea Nitrogen 10, Creatinine 0.4L, Estimat Glomerular Filtration Rate > 60, Glucose Level 103, Calcium Level 8.6 Height (Feet): 6 Height (Inches): 2.00 Weight (Pounds): 126 Objective Elderly AA man NCAT (+) trach Coarse BS RRR soft NT abdomen, (+) GT responsive ROSEMARY BURROUGHS Oct 11, 2016 20:12
[2016-10-12] VITALS: BP 100/69
[2016-10-12] MEDS: NovoLOG Insulin Flexpen SUBQ SCH ×5 (01:33→23:56)
[2016-10-12] MEDS: LORazepam Inj 2mg/ml 1ml IV PRN (02:09)
[2016-10-12] MEDS: DuoNeb 0.5-3(2.5)mg/3ml neb HHN PRN ×2 (03:05→16:33)
[2016-10-12 04:00] VITALS: BP 114/83
[2016-10-12] MEDS: NS IV SCH ×3 (05:22→22:06)
[2016-10-12] MEDS: CEFTAZIDIME IV SCH ×3 (05:22→22:06)
[2016-10-12 05:30] LABS: BASOPHILS % (AUTO) 0.5 % (0.0-2.0); EOSINOPHILS % (AUTO) 1.5 % (0.0-3.0); LYMPHOCYTES % (AUTO) 11.5 % (20.0-45.0); MEAN CORPUSCULAR HEMOGLOBIN 27.8 PG (27.0-31.0); MEAN CORPUSCULAR HGB CONC 30.1 G/DL (32.0-36.0); MEAN CORPUSCULAR VOLUME 92 FL (80-99); MEAN PLATELET VOLUME 6.1 FL (6.5-10.1); MONOCYTES % (AUTO) 6.2 % (1.0-10.0); NEUTROPHILS % (AUTO) 80.3 % (45.0-75.0); PLATELET COUNT 377 K/UL (150-450); RED BLOOD COUNT 2.95 M/UL (4.70-6.10); RED CELL DISTRIBUTION WIDTH 16.6 % (11.6-14.8); WHITE BLOOD COUNT 8.8 K/UL (4.8-10.8)
[2016-10-12 06:00] LABS: ANION GAP 4 (5-15); CALCIUM 8.8 mg/dL (8.6-10.2); CARBON DIOXIDE 38 mEQ/L (20-30); CHLORIDE 98 mEQ/L (98-107); CREATININE 0.4 mg/dL (0.7-1.2); GLOMERULAR FILTRATION RATE > 60 mL/min (>60); HEMOLYSIS 0; POTASSIUM 4.4 mEQ/L (3.4-4.9); SODIUM 140 mEQ/L (135-145)
[2016-10-12 08:00] VITALS: BP 132/83
[2016-10-12] MEDS: Pantoprazole Inj IVP SCH (08:52)
[2016-10-12] MEDS: Tobramycin for inhalation INH SCH ×2 (09:27→22:11)
--- NOTE | 2016-10-12 11:38 | Infectious Diseases Prog Note ---
Assessment/Plan Assessment/Plan ASSESSMENT: 66 y/o male with: // COPD exacerbation - delayed SCx 4+ PSA pt has increased secretions - CXR 09/27: Lungs are hyperinflated. No new infiltrates - negative: influenza // Leukocytosis - SP ( post op, 10/01 SP steroids ) // Diarrhea x 1 resolved C Diff Neg // Febrile low grade // HIV and Hep B/C : neg // - PEG 10/04 // Acute VDRF - intubated 09/20, 10/03 SP trach // Severe pulmonary HTN / grade I diastolic dysfunction / mod TR // Pulmonary nodules // Chronic RLE DVT // Tobacco abuse // [facility] resident // Negative MRSA, VRE screens // NKDA // Full Code PLAN: - on Jairon nebs d# 13 / 14 , add Ceftazidime d# 10 / 14 ( 10/11 SP Flagyl d# 10 ) ( 10/04 SP oral Vanco d# 3 ) ( 09/24 SP amikacin, invanz d# 5 / 5 ) ( 09/21 SP IV vancomycin d# 2 ) - taper steroids per pulm - monitor CBC, temperatures - monitor BMP - monitor CXR - vent support, wean as tolerated. Subjective Constitutional: Denies: anorexia, chills, drenching sweats, fatigue, fever, no symptoms, other Allergies: Coded Allergies: No Known Allergies (Unverified , 06/17/16) Objective Vital Signs Last 24 Hour Vital Signs Date Time Temp Pulse Resp B/P Pulse Ox O2 Delivery O2 Flow Rate FiO2 10/12/16 11:14 100 16 40 10/12/16 09:44 101 16 100 Mechanical Ventilator 40 10/12/16 09:28 40 10/12/16 09:27 108 16 99 Mechanical Ventilator 40 10/12/16 09:20 108 16 40 10/12/16 08:00 100 10/12/16 08:00 96.8 102 18 132/83 100 Mechanical Ventilator 40 10/12/16 08:00 40 10/12/16 07:02 98 16 40 10/12/16 05:10 103 17 40 10/12/16 04:00 40 10/12/16 04:00 97.9 102 20 114/83 100 Mechanical Ventilator 40 10/12/16 03:42 87 10/12/16 03:06 105 16 100 Mechanical Ventilator 40 10/12/16 03:04 100 16 40 10/12/16 01:39 87 16 40 10/12/16 00:00 97 10/12/16 00:00 40 10/12/16 00:00 98.8 98 20 100/69 100 Mechanical Ventilator 40 10/11/16 23:02 97 22 100 Mechanical Ventilator 40 10/11/16 23:01 97 22 40 10/11/16 21:07 82 17 40 10/11/16 20:00 98.9 92 18 104/74 100 Mechanical Ventilator 40 10/11/16 20:00 98 10/11/16 20:00 40 10/11/16 19:30 40 10/11/16 19:30 94 18 100 Mechanical Ventilator 40 10/11/16 19:13 94 19 40 10/11/16 19:13 97 18 97 Mechanical Ventilator 40 10/11/16 17:01 93 16 40 10/11/16 16:00 40 10/11/16 16:00 101 10/11/16 15:59 97.2 101 17 98/68 100 Mechanical Ventilator 40 10/11/16 15:34 101 17 100 Mechanical Ventilator 40 10/11/16 15:22 40 10/11/16 15:21 103 18 100 Mechanical Ventilator 40 10/11/16 15:04 103 18 40 10/11/16 13:07 90 17 40 10/11/16 12:00 98.4 102 16 104/68 100 Mechanical Ventilator 40 10/11/16 12:00 40 10/11/16 12:00 103 Height (Feet): 6 Height (Inches): 2.00 Weight (Pounds): 126 HEENT: atraumatic Respiratory/Chest: normal breath sounds Cardiovascular: regularly irregular Abdomen: non distended Laboratory Tests Test 10/12/16 04:55 White Blood Count 8.8 K/UL (4.8-10.8) Red Blood Count 2.95 M/UL (4.70-6.10) L Hemoglobin 8.2 G/DL (14.2-18.0) L Hematocrit 27.3 % (42.0-52.0) L Mean Corpuscular Volume 92 FL (80-99) Mean Corpuscular Hemoglobin 27.8 PG (27.0-31.0) Mean Corpuscular Hemoglobin Concent 30.1 G/DL (32.0-36.0) L Red Cell Distribution Width 16.6 % (11.6-14.8) H Platelet Count 377 K/UL (150-450) Mean Platelet Volume 6.1 FL (6.5-10.1) L Neutrophils (%) (Auto) 80.3 % (45.0-75.0) H Lymphocytes (%) (Auto) 11.5 % (20.0-45.0) L Monocytes (%) (Auto) 6.2 % (1.0-10.0) Eosinophils (%) (Auto) 1.5 % (0.0-3.0) Basophils (%) (Auto) 0.5 % (0.0-2.0) Sodium Level 140 mEQ/L (135-145) Potassium Level 4.4 mEQ/L (3.4-4.9) Chloride Level 98 mEQ/L (98-107) Carbon Dioxide Level 38 mEQ/L (20-30) H Anion Gap 4 (5-15) L Blood Urea Nitrogen 9 mg/dL (7-23) Creatinine 0.4 mg/dL (0.7-1.2) L Estimat Glomerular Filtration Rate > 60 mL/min (>60) Glucose Level 106 mg/dL (74-106) Calcium Level 8.8 mg/dL (8.6-10.2) Current Medications Medications (Trade) Dose Ordered Sig/Shraddha Route PRN Reason Start Time Stop Time Status Last Admin Dose Admin Acetaminophen (Tylenol) 650 mg Q4H PRN ORAL fever>100.5 10/05/16 11:30 11/04/16 11:29 Albuterol/ Ipratropium (DuoNeb 0.5-3(2.5)mg/3ml) 3 ml Q4H PRN HHN Shortness of Breath 10/10/16 18:15 10/15/16 18:14 10/12/16 03:05 Ceftazidime/ Sodium Chloride (Fortaz/Sodium Chloride) 110 ml @ 220 mls/hr Q8HR IV 10/10/16 14:00 10/16/16 13:59 10/12/16 05:22 Dextrose (Dextrose 50%) STAT PRN IV Hypoglycemia 10/05/16 11:30 11/04/16 11:29 Insulin Aspart (NovoLOG) start when feeding started Q6HR SUBQ 4/1/17 12:00 11/04/16 11:59 10/12/16 07:09 Ondansetron HCl (Zofran) 4 mg Q6H PRN IVP Nausea & Vomiting 10/05/16 11:30 11/04/16 11:29 Pantoprazole (Protonix) 40 mg DAILY IVP 10/06/16 09:00 11/05/16 08:59 10/12/16 08:52 Polyethylene Glycol (Miralax) 17 gm DAILYPRN PRN ORAL Constipation 10/05/16 11:30 11/04/16 11:29 Tobramycin Sulfate 300 mg 300 mg Q12HR@10,22 INH 10/07/16 22:00 10/14/16 21:59 10/12/16 09:27 KIMBERLEE HINKLE M.D. Oct 12, 2016 11:38
--- NOTE | 2016-10-12 11:38 | Pulmonology Progress Note ---
Assessment/Plan Problems: (1) Respiratory failure (2) COPD exacerbation (3) Emphysema of lung Assessment/Plan improving tolerating diet weaning trials check eletrolytes doing better stable for transfer to a subacute facility Subjective ROS Limited/Unobtainable: Yes Allergies: Coded Allergies: No Known Allergies (Unverified , 06/17/16) Objective Last 24 Hour Vital Signs Date Time Temp Pulse Resp B/P Pulse Ox O2 Delivery O2 Flow Rate FiO2 10/12/16 11:14 100 16 40 10/12/16 09:44 101 16 100 Mechanical Ventilator 40 10/12/16 09:28 40 10/12/16 09:27 108 16 99 Mechanical Ventilator 40 10/12/16 09:20 108 16 40 10/12/16 08:00 100 10/12/16 08:00 96.8 102 18 132/83 100 Mechanical Ventilator 40 10/12/16 08:00 40 10/12/16 07:02 98 16 40 10/12/16 05:10 103 17 40 10/12/16 04:00 40 10/12/16 04:00 97.9 102 20 114/83 100 Mechanical Ventilator 40 10/12/16 03:42 87 10/12/16 03:06 105 16 100 Mechanical Ventilator 40 10/12/16 03:04 100 16 40 10/12/16 01:39 87 16 40 10/12/16 00:00 97 10/12/16 00:00 40 10/12/16 00:00 98.8 98 20 100/69 100 Mechanical Ventilator 40 10/11/16 23:02 97 22 100 Mechanical Ventilator 40 10/11/16 23:01 97 22 40 10/11/16 21:07 82 17 40 10/11/16 20:00 98.9 92 18 104/74 100 Mechanical Ventilator 40 10/11/16 20:00 98 10/11/16 20:00 40 10/11/16 19:30 40 10/11/16 19:30 94 18 100 Mechanical Ventilator 40 10/11/16 19:13 94 19 40 10/11/16 19:13 97 18 97 Mechanical Ventilator 40 10/11/16 17:01 93 16 40 10/11/16 16:00 40 10/11/16 16:00 101 10/11/16 15:59 97.2 101 17 98/68 100 Mechanical Ventilator 40 10/11/16 15:34 101 17 100 Mechanical Ventilator 40 10/11/16 15:22 40 10/11/16 15:21 103 18 100 Mechanical Ventilator 40 10/11/16 15:04 103 18 40 10/11/16 13:07 90 17 40 10/11/16 12:00 98.4 102 16 104/68 100 Mechanical Ventilator 40 10/11/16 12:00 40 10/11/16 12:00 103 Intake and Output 10/11/16 10/12/16 19:00 07:00 Intake Total 1080 ml 1250 ml Output Total 450 ml 1150 ml Balance 630 ml 100 ml Free Water 150 ml 100 ml IV Total 210 ml 430 ml Tube Feeding 720 ml 720 ml Output Urine Total 450 ml 950 ml Stool Total 200 ml # Bowel Movements 2 Objective Status: awake HEENT: atraumatic, normocephalic Lungs: clear, decreased breath sounds Heart: HR/BP stable Abdomen: soft, non-tender Extremities: no C/C/E, edema Laboratory Tests 10/12/16 04:55: White Blood Count 8.8, Red Blood Count 2.95L, Hemoglobin 8.2L, Hematocrit 27.3L , Mean Corpuscular Volume 92, Mean Corpuscular Hemoglobin 27.8, Mean Corpuscular Hemoglobin Concent 30.1L, Red Cell Distribution Width 16.6H, Platelet Count 377, Mean Platelet Volume 6.1L, Neutrophils (%) (Auto) 80.3H, Lymphocytes (%) (Auto) 11.5L, Monocytes (%) (Auto) 6.2, Eosinophils (%) (Auto) 1.5, Basophils (%) (Auto) 0.5, Sodium Level 140, Potassium Level 4.4, Chloride Level 98, Carbon Dioxide Level 38H, Anion Gap 4L, Blood Urea Nitrogen 9, Creatinine 0.4L, Estimat Glomerular Filtration Rate > 60, Glucose Level 106, Calcium Level 8.8 Current Medications Medications (Trade) Dose Ordered Sig/Shraddha Route PRN Reason Start Time Stop Time Status Last Admin Dose Admin Acetaminophen (Tylenol) 650 mg Q4H PRN ORAL fever>100.5 10/05/16 11:30 11/04/16 11:29 Albuterol/ Ipratropium (DuoNeb 0.5-3(2.5)mg/3ml) 3 ml Q4H PRN HHN Shortness of Breath 10/10/16 18:15 10/15/16 18:14 10/12/16 03:05 Ceftazidime/ Sodium Chloride (Fortaz/Sodium Chloride) 110 ml @ 220 mls/hr Q8HR IV 10/10/16 14:00 10/16/16 13:59 10/12/16 05:22 Dextrose (Dextrose 50%) STAT PRN IV Hypoglycemia 10/05/16 11:30 11/04/16 11:29 Insulin Aspart (NovoLOG) start when feeding started Q6HR SUBQ 10/05/16 12:00 11/04/16 11:59 10/12/16 07:09 Ondansetron HCl (Zofran) 4 mg Q6H PRN IVP Nausea & Vomiting 10/05/16 11:30 11/04/16 11:29 Pantoprazole (Protonix) 40 mg DAILY IVP 10/06/16 09:00 11/05/16 08:59 10/12/16 08:52 Polyethylene Glycol (Miralax) 17 gm DAILYPRN PRN ORAL Constipation 10/05/16 11:30 11/04/16 11:29 Tobramycin Sulfate 300 mg 300 mg Q12HR@10,22 INH 10/07/16 22:00 10/14/16 21:59 10/12/16 09:27 REN WRIGHT Oct 12, 2016 11:38
[2016-10-12 12:00] VITALS: BP 120/75
--- NOTE | 2016-10-12 15:59 | General Progress Note ---
Assessment/Plan Assessment/Plan Assessment - abnormal LFT - resolved - loose stools - Leukocytosis - resolving - COPD - respiratory failure - s/p trach and PEG - dysphagia - OB (+) - possibly due to bleeding at time of PEG or Trach. Need to repeat in few weeks. Recommendations - check C Diff --> neg - follow LFT periodically - elevate HOB - GT care - repeat stool OB in 2-3 weeks Subjective Allergies: Coded Allergies: No Known Allergies (Unverified , 06/17/16) Subjective above noted tolerating TF comfortable no events overnight Objective Last 24 Hour Vital Signs Date Time Temp Pulse Resp B/P Pulse Ox O2 Delivery O2 Flow Rate FiO2 10/12/16 14:49 84 16 40 10/12/16 13:10 98 15 40 10/12/16 12:00 94 10/12/16 12:00 40 10/12/16 12:00 97.3 105 16 120/75 100 Mechanical Ventilator 40 10/12/16 11:14 100 16 40 10/12/16 09:44 101 16 100 Mechanical Ventilator 40 10/12/16 09:28 40 10/12/16 09:27 108 16 99 Mechanical Ventilator 40 10/12/16 09:20 108 16 40 10/12/16 08:00 100 10/12/16 08:00 96.8 102 18 132/83 100 Mechanical Ventilator 40 10/12/16 08:00 40 10/12/16 07:02 98 16 40 10/12/16 05:10 103 17 40 10/12/16 04:00 40 10/12/16 04:00 97.9 102 20 114/83 100 Mechanical Ventilator 40 10/12/16 03:42 87 10/12/16 03:06 105 16 100 Mechanical Ventilator 40 10/12/16 03:04 100 16 40 10/12/16 01:39 87 16 40 10/12/16 00:00 97 10/12/16 00:00 40 10/12/16 00:00 98.8 98 20 100/69 100 Mechanical Ventilator 40 10/11/16 23:02 97 22 100 Mechanical Ventilator 40 10/11/16 23:01 97 22 40 10/11/16 21:07 82 17 40 10/11/16 20:00 98.9 92 18 104/74 100 Mechanical Ventilator 40 10/11/16 20:00 98 10/11/16 20:00 40 10/11/16 19:30 40 10/11/16 19:30 94 18 100 Mechanical Ventilator 40 10/11/16 19:13 94 19 40 10/11/16 19:13 97 18 97 Mechanical Ventilator 40 10/11/16 17:01 93 16 40 10/11/16 16:00 40 10/11/16 16:00 101 10/11/16 15:59 97.2 101 17 98/68 100 Mechanical Ventilator 40 Intake and Output 10/11/16 10/12/16 19:00 07:00 Intake Total 1080 ml 1250 ml Output Total 450 ml 1150 ml Balance 630 ml 100 ml Free Water 150 ml 100 ml IV Total 210 ml 430 ml Tube Feeding 720 ml 720 ml Output Urine Total 450 ml 950 ml Stool Total 200 ml # Bowel Movements 2 Laboratory Tests 10/12/16 04:55: White Blood Count 8.8, Red Blood Count 2.95L, Hemoglobin 8.2L, Hematocrit 27.3L , Mean Corpuscular Volume 92, Mean Corpuscular Hemoglobin 27.8, Mean Corpuscular Hemoglobin Concent 30.1L, Red Cell Distribution Width 16.6H, Platelet Count 377, Mean Platelet Volume 6.1L, Neutrophils (%) (Auto) 80.3H, Lymphocytes (%) (Auto) 11.5L, Monocytes (%) (Auto) 6.2, Eosinophils (%) (Auto) 1.5, Basophils (%) (Auto) 0.5, Sodium Level 140, Potassium Level 4.4, Chloride Level 98, Carbon Dioxide Level 38H, Anion Gap 4L, Blood Urea Nitrogen 9, Creatinine 0.4L, Estimat Glomerular Filtration Rate > 60, Glucose Level 106, Calcium Level 8.8 Height (Feet): 6 Height (Inches): 2.00 Weight (Pounds): 126 Objective Elderly AA man NCAT (+) trach Coarse BS RRR soft NT abdomen, (+) GT responsive ROSEMARY BURROUGHS Oct 12, 2016 15:59
[2016-10-12 16:00] VITALS: BP 98/71
--- NOTE | 2016-10-12 16:13 | Internal Med Progress Note ---
Subjective Date of Service: Oct 12, 2016 Physician Name Tadeo Verdin Attending Physician Steve Rader MD Current Medications Medications (Trade) Dose Ordered Sig/Shraddha Route PRN Reason Start Time Stop Time Status Last Admin Dose Admin Acetaminophen (Tylenol) 650 mg Q4H PRN ORAL fever>100.5 10/05/16 11:30 11/04/16 11:29 Albuterol/ Ipratropium (DuoNeb 0.5-3(2.5)mg/3ml) 3 ml Q4H PRN HHN Shortness of Breath 10/10/16 18:15 10/15/16 18:14 10/12/16 03:05 Ceftazidime/ Sodium Chloride (Fortaz/Sodium Chloride) 110 ml @ 220 mls/hr Q8HR IV 10/10/16 14:00 10/16/16 13:59 10/12/16 13:56 Dextrose (Dextrose 50%) STAT PRN IV Hypoglycemia 10/05/16 11:30 11/04/16 11:29 Insulin Aspart (NovoLOG) start when feeding started Q6HR SUBQ 10/05/16 12:00 11/04/16 11:59 10/12/16 12:11 Ondansetron HCl (Zofran) 4 mg Q6H PRN IVP Nausea & Vomiting 10/05/16 11:30 11/04/16 11:29 Pantoprazole (Protonix) 40 mg DAILY IVP 10/06/16 09:00 11/05/16 08:59 10/12/16 08:52 Polyethylene Glycol (Miralax) 17 gm DAILYPRN PRN ORAL Constipation 10/05/16 11:30 11/04/16 11:29 Tobramycin Sulfate 300 mg 300 mg Q12HR@10,22 INH 10/07/16 22:00 10/14/16 21:59 10/12/16 09:27 Allergies: Coded Allergies: No Known Allergies (Unverified , 06/17/16) ROS Limited/Unobtainable: Yes Subjective 66 YO M admitted with respiratory failure. JORDAN. Intubated and sedated. Await transfer to [facility]. Cover for Int Wilder-Dr Rader. Objective Last Vital Signs Date Time Temp Pulse Resp B/P Pulse Ox O2 Delivery O2 Flow Rate FiO2 10/12/16 14:49 84 16 40 10/12/16 12:00 97.3 120/75 100 Mechanical Ventilator Laboratory Tests Test 10/12/16 04:55 White Blood Count 8.8 K/UL (4.8-10.8) Red Blood Count 2.95 M/UL (4.70-6.10) L Hemoglobin 8.2 G/DL (14.2-18.0) L Hematocrit 27.3 % (42.0-52.0) L Mean Corpuscular Volume 92 FL (80-99) Mean Corpuscular Hemoglobin 27.8 PG (27.0-31.0) Mean Corpuscular Hemoglobin Concent 30.1 G/DL (32.0-36.0) L Red Cell Distribution Width 16.6 % (11.6-14.8) H Platelet Count 377 K/UL (150-450) Mean Platelet Volume 6.1 FL (6.5-10.1) L Neutrophils (%) (Auto) 80.3 % (45.0-75.0) H Lymphocytes (%) (Auto) 11.5 % (20.0-45.0) L Monocytes (%) (Auto) 6.2 % (1.0-10.0) Eosinophils (%) (Auto) 1.5 % (0.0-3.0) Basophils (%) (Auto) 0.5 % (0.0-2.0) Sodium Level 140 mEQ/L (135-145) Potassium Level 4.4 mEQ/L (3.4-4.9) Chloride Level 98 mEQ/L (98-107) Carbon Dioxide Level 38 mEQ/L (20-30) H Anion Gap 4 (5-15) L Blood Urea Nitrogen 9 mg/dL (7-23) Creatinine 0.4 mg/dL (0.7-1.2) L Estimat Glomerular Filtration Rate > 60 mL/min (>60) Glucose Level 106 mg/dL (74-106) Calcium Level 8.8 mg/dL (8.6-10.2) Intake and Output 10/11/16 10/12/16 19:00 07:00 Intake Total 1080 ml 1250 ml Output Total 450 ml 1150 ml Balance 630 ml 100 ml Free Water 150 ml 100 ml IV Total 210 ml 430 ml Tube Feeding 720 ml 720 ml Output Urine Total 450 ml 950 ml Stool Total 200 ml # Bowel Movements 2 Objective General Appearance: moderate distress, thin EENT: PERRL/EOMI, normal ENT inspection Neck: non-tender, normal alignment, supple Cardiovascular: normal peripheral pulses, normal rate, regular rhythm, no gallop/murmur, no JVD Respiratory/Chest: Trach; Mech Vent; trach; respiratory distress, crackles/ rales, rhonchi - bilaterally, expiratory wheezing Abdomen: non tender, soft, no organomegaly, no mass, decreased bowel sounds Extremities: normal range of motion Skin: normal pigmentation, warm/dry Assessment/Plan Problem List: (1) Lung nodule (2) DVT (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 (3) Acute respiratory failure Assessment & Plan: S/P tracheostomy 10/03/16. Cont vent per pulmonary (4) COPD exacerbation Assessment & Plan: Continue duoneb. Continue vent per pulmonary. (5) Pneumonia Assessment & Plan: continue ceftazidime and IV flagyl per ID-continue tobramycin nebs (6) Leukocytosis Assessment & Plan: Continue PO vanco and IV flagyl per ID. (7) Dysphagia Assessment & Plan: See GI consult- S/P PEG 10/04/16. Assessment/Plan Discharge Planning: [facility] TADEO VERDIN Oct 12, 2016 16:13
[2016-10-12 20:00] VITALS: BP 121/69
[2016-10-13 00:43] VITALS: BP 111/66
[2016-10-13 04:00] VITALS: BP 123/80
[2016-10-13 04:33] LABS: BASOPHILS % (AUTO) 0.8 % (0.0-2.0); EOSINOPHILS % (AUTO) 1.7 % (0.0-3.0); LYMPHOCYTES % (AUTO) 15.7 % (20.0-45.0); MEAN CORPUSCULAR HEMOGLOBIN 28.2 PG (27.0-31.0); MEAN CORPUSCULAR HGB CONC 30.4 G/DL (32.0-36.0); MEAN CORPUSCULAR VOLUME 93 FL (80-99); MEAN PLATELET VOLUME 6.1 FL (6.5-10.1); MONOCYTES % (AUTO) 5.8 % (1.0-10.0); NEUTROPHILS % (AUTO) 76.1 % (45.0-75.0); PLATELET COUNT 397 K/UL (150-450); RED BLOOD COUNT 3.02 M/UL (4.70-6.10); RED CELL DISTRIBUTION WIDTH 17.3 % (11.6-14.8); WHITE BLOOD COUNT 7.9 K/UL (4.8-10.8)
[2016-10-13 04:41] LABS: ALANINE AMINOTRANSFERASE 14 U/L (3-41); ALBUMIN/GLOBULIN RATIO 0.6 (1.0-2.7); ANION GAP 6 (5-15); ASPARTATE AMINO TRANSFERASE 15 U/L (5-40); CALCIUM 8.8 mg/dL (8.6-10.2); CARBON DIOXIDE 38 mEQ/L (20-30); CHLORIDE 94 mEQ/L (98-107); CREATININE 0.4 mg/dL (0.7-1.2); GLOMERULAR FILTRATION RATE > 60 mL/min (>60); HEMOLYSIS 2; MAGNESIUM 2.1 mg/dL (1.7-2.5); PHOSPHORUS 3.2 mg/dL (2.5-4.8); POTASSIUM 4.6 mEQ/L (3.4-4.9); SODIUM 138 mEQ/L (135-145); TOTAL PROTEIN 6.2 g/dL (6.6-8.7)
[2016-10-13] MEDS: NS IV SCH ×3 (05:56→22:15)
[2016-10-13] MEDS: CEFTAZIDIME IV SCH ×3 (05:56→22:15)
[2016-10-13] MEDS: NovoLOG Insulin Flexpen SUBQ SCH ×4 (05:57→23:45)
--- NOTE | 2016-10-13 07:16 | Infectious Diseases Prog Note ---
Assessment/Plan Assessment/Plan A: Pneumonia with Pseudomonas Leukocytosis resolved COPD VDRF Pulmonary HPN P: Continue Ceftazidime Discontinue Tobramycin inhaler Subjective ROS Limited/Unobtainable: Yes Allergies: Coded Allergies: No Known Allergies (Unverified , 06/17/16) Objective Vital Signs Last 24 Hour Vital Signs Date Time Temp Pulse Resp B/P Pulse Ox O2 Delivery O2 Flow Rate FiO2 10/13/16 05:17 103 16 40 10/13/16 04:00 40 10/13/16 04:00 98.0 98 22 123/80 100 Mechanical Ventilator 40 10/13/16 03:35 94 10/13/16 03:06 96 16 40 10/13/16 01:29 93 16 40 10/13/16 00:43 97.4 87 16 111/66 100 Mechanical Ventilator 40 10/13/16 00:00 40 10/12/16 23:30 84 10/12/16 23:30 90 16 40 10/12/16 21:30 94 16 40 10/12/16 20:00 86 10/12/16 20:00 40 10/12/16 20:00 97.0 86 18 121/69 100 Mechanical Ventilator 40 10/12/16 19:30 94 16 100 Mechanical Ventilator 40 10/12/16 19:30 40 10/12/16 19:30 92 16 99 Mechanical Ventilator 40 10/12/16 19:07 96 18 40 10/12/16 16:45 89 16 100 Mechanical Ventilator 10/12/16 16:35 99 15 100 Mechanical Ventilator 40 10/12/16 16:30 99 15 40 10/12/16 16:00 96.8 97 16 98/71 100 Mechanical Ventilator 40 10/12/16 16:00 40 10/12/16 16:00 97 10/12/16 14:49 84 16 40 10/12/16 13:10 98 15 40 10/12/16 12:00 94 10/12/16 12:00 40 10/12/16 12:00 97.3 105 16 120/75 100 Mechanical Ventilator 40 10/12/16 11:14 100 16 40 10/12/16 09:44 101 16 100 Mechanical Ventilator 40 10/12/16 09:28 40 10/12/16 09:27 108 16 99 Mechanical Ventilator 40 10/12/16 09:20 108 16 40 10/12/16 08:00 100 10/12/16 08:00 96.8 102 18 132/83 100 Mechanical Ventilator 40 10/12/16 08:00 40 Height (Feet): 6 Height (Inches): 2.00 Weight (Pounds): 126 General Appearance: no acute distress HEENT: status post trach Respiratory/Chest: decreased breath sounds, other - on ventilator Cardiovascular: normal rate Abdomen: soft, non tender, other - Gt feeding Extremities: no edema Neurologic/Psychiatric: alert, responsive Laboratory Tests Test 10/13/16 03:20 White Blood Count 7.9 K/UL (4.8-10.8) Red Blood Count 3.02 M/UL (4.70-6.10) L Hemoglobin 8.5 G/DL (14.2-18.0) L Hematocrit 28.0 % (42.0-52.0) L Mean Corpuscular Volume 93 FL (80-99) Mean Corpuscular Hemoglobin 28.2 PG (27.0-31.0) Mean Corpuscular Hemoglobin Concent 30.4 G/DL (32.0-36.0) L Red Cell Distribution Width 17.3 % (11.6-14.8) H Platelet Count 397 K/UL (150-450) Mean Platelet Volume 6.1 FL (6.5-10.1) L Neutrophils (%) (Auto) 76.1 % (45.0-75.0) H Lymphocytes (%) (Auto) 15.7 % (20.0-45.0) L Monocytes (%) (Auto) 5.8 % (1.0-10.0) Eosinophils (%) (Auto) 1.7 % (0.0-3.0) Basophils (%) (Auto) 0.8 % (0.0-2.0) Sodium Level 138 mEQ/L (135-145) Potassium Level 4.6 mEQ/L (3.4-4.9) Chloride Level 94 mEQ/L (98-107) L Carbon Dioxide Level 38 mEQ/L (20-30) H Anion Gap 6 (5-15) Blood Urea Nitrogen 9 mg/dL (7-23) Creatinine 0.4 mg/dL (0.7-1.2) L Estimat Glomerular Filtration Rate > 60 mL/min (>60) Glucose Level 117 mg/dL (74-106) H Calcium Level 8.8 mg/dL (8.6-10.2) Phosphorus Level 3.2 mg/dL (2.5-4.8) Magnesium Level 2.1 mg/dL (1.7-2.5) Total Bilirubin < 0.2 mg/dL (0.0-1.2) Aspartate Amino Transf (AST/SGOT) 15 U/L (5-40) Alanine Aminotransferase (ALT/SGPT) 14 U/L (3-41) Alkaline Phosphatase 81 U/L (40-129) Total Protein 6.2 g/dL (6.6-8.7) L Albumin 2.5 g/dL (3.5-5.2) L Globulin 3.7 g/dL Albumin/Globulin Ratio 0.6 (1.0-2.7) L Current Medications Medications (Trade) Dose Ordered Sig/Shraddha Route PRN Reason Start Time Stop Time Status Last Admin Dose Admin Acetaminophen (Tylenol) 650 mg Q4H PRN ORAL fever>100.5 10/05/16 11:30 11/04/16 11:29 Albuterol/ Ipratropium (DuoNeb 0.5-3(2.5)mg/3ml) 3 ml Q4H PRN HHN Shortness of Breath 10/10/16 18:15 10/15/16 18:14 10/12/16 16:33 Ceftazidime/ Sodium Chloride (Fortaz/Sodium Chloride) 110 ml @ 220 mls/hr Q8HR IV 10/10/16 14:00 10/16/16 13:59 10/13/16 05:56 Dextrose (Dextrose 50%) STAT PRN IV Hypoglycemia 10/05/16 11:30 11/04/16 11:29 Insulin Aspart (NovoLOG) start when feeding started Q6HR SUBQ 10/05/16 12:00 11/04/16 11:59 10/13/16 05:57 Lorazepam (Ativan 2mg/ml 1ml) 1 mg Q4H PRN IV For Anxiety 10/13/16 05:00 10/20/16 04:59 Ondansetron HCl (Zofran) 4 mg Q6H PRN IVP Nausea & Vomiting 10/05/16 11:30 11/04/16 11:29 Pantoprazole (Protonix) 40 mg DAILY IVP 10/06/16 09:00 11/05/16 08:59 10/12/16 08:52 Polyethylene Glycol (Miralax) 17 gm DAILYPRN PRN ORAL Constipation 10/05/16 11:30 11/04/16 11:29 Tobramycin Sulfate 300 mg 300 mg Q12HR@10,22 INH 10/07/16 22:00 10/14/16 21:59 10/12/16 22:11 LINNETTE DIAZ Oct 13, 2016 07:16
[2016-10-13] MEDS: DuoNeb 0.5-3(2.5)mg/3ml neb HHN PRN ×3 (07:36→17:05)
[2016-10-13 08:10] VITALS: BP 108/59
[2016-10-13] MEDS: Pantoprazole Inj IVP SCH (08:31)
[2016-10-13] MEDS ORDERED: NS 275ml ONE (08:37)
[2016-10-13] MEDS ORDERED: Tubing IV Secondary IV ONE (08:37)
[2016-10-13 11:52] VITALS: BP 97/65
--- NOTE | 2016-10-13 12:40 | Pulmonology Progress Note ---
Assessment/Plan Problems: (1) Respiratory failure (2) COPD exacerbation (3) Emphysema of lung Assessment/Plan improving tolerating diet weaning trials check eletrolytes doing better stable for transfer to a subacute facility Subjective ROS Limited/Unobtainable: No Constitutional: Reports: no symptoms HEENT: Repors: no symptoms Allergies: Coded Allergies: No Known Allergies (Unverified , 06/17/16) Objective Last 24 Hour Vital Signs Date Time Temp Pulse Resp B/P Pulse Ox O2 Delivery O2 Flow Rate FiO2 10/13/16 11:52 98.1 91 16 97/65 100 Mechanical Ventilator 40 10/13/16 11:28 89 17 100 Mechanical Ventilator 40 10/13/16 11:11 89 17 40 10/13/16 10:15 89 17 40 10/13/16 08:10 97.2 101 16 108/59 100 Mechanical Ventilator 40 10/13/16 08:00 40 10/13/16 08:00 92 10/13/16 07:45 100 16 100 Mechanical Ventilator 40 10/13/16 07:38 102 16 40 10/13/16 07:38 40 10/13/16 07:37 102 16 100 Mechanical Ventilator 40 10/13/16 05:17 103 16 40 10/13/16 04:00 40 10/13/16 04:00 98.0 98 22 123/80 100 Mechanical Ventilator 40 10/13/16 03:35 94 10/13/16 03:06 96 16 40 10/13/16 01:29 93 16 40 10/13/16 00:43 97.4 87 16 111/66 100 Mechanical Ventilator 40 10/13/16 00:00 40 10/12/16 23:30 84 10/12/16 23:30 90 16 40 10/12/16 21:30 94 16 40 10/12/16 20:00 86 10/12/16 20:00 40 10/12/16 20:00 97.0 86 18 121/69 100 Mechanical Ventilator 40 10/12/16 19:30 94 16 100 Mechanical Ventilator 40 10/12/16 19:30 40 10/12/16 19:30 92 16 99 Mechanical Ventilator 40 10/12/16 19:07 96 18 40 10/12/16 16:45 89 16 100 Mechanical Ventilator 10/12/16 16:35 99 15 100 Mechanical Ventilator 40 10/12/16 16:30 99 15 40 10/12/16 16:00 96.8 97 16 98/71 100 Mechanical Ventilator 40 10/12/16 16:00 40 10/12/16 16:00 97 10/12/16 14:49 84 16 40 10/12/16 13:10 98 15 40 Intake and Output 10/12/16 10/13/16 19:00 07:00 Intake Total 870 ml 1200 ml Output Total 450 ml 1200 ml Balance 420 ml 0 ml Free Water 150 ml 150 ml IV Total 330 ml Tube Feeding 720 ml 720 ml Output Urine Total 450 ml 1200 ml # Bowel Movements 1 Objective Status: awake HEENT: atraumatic, normocephalic Lungs: clear, decreased breath sounds Heart: HR/BP stable Abdomen: soft, non-tender Extremities: no C/C/E, edema Laboratory Tests 10/13/16 03:20: White Blood Count 7.9, Red Blood Count 3.02L, Hemoglobin 8.5L, Hematocrit 28.0L , Mean Corpuscular Volume 93, Mean Corpuscular Hemoglobin 28.2, Mean Corpuscular Hemoglobin Concent 30.4L, Red Cell Distribution Width 17.3H, Platelet Count 397, Mean Platelet Volume 6.1L, Neutrophils (%) (Auto) 76.1H, Lymphocytes (%) (Auto) 15.7L, Monocytes (%) (Auto) 5.8, Eosinophils (%) (Auto) 1.7, Basophils (%) (Auto) 0.8, Sodium Level 138, Potassium Level 4.6, Chloride Level 94L, Carbon Dioxide Level 38H, Anion Gap 6, Blood Urea Nitrogen 9, Creatinine 0.4L, Estimat Glomerular Filtration Rate > 60, Glucose Level 117H, Calcium Level 8.8, Phosphorus Level 3.2, Magnesium Level 2.1, Total Bilirubin < 0.2, Aspartate Amino Transf (AST/SGOT) 15, Alanine Aminotransferase (ALT/SGPT) 14, Alkaline Phosphatase 81, Total Protein 6.2L, Albumin 2.5L, Globulin 3.7, Albumin/Globulin Ratio 0.6L Current Medications Medications (Trade) Dose Ordered Sig/Shraddha Route PRN Reason Start Time Stop Time Status Last Admin Dose Admin Acetaminophen (Tylenol) 650 mg Q4H PRN ORAL fever>100.5 10/05/16 11:30 11/04/16 11:29 Albuterol/ Ipratropium (DuoNeb 0.5-3(2.5)mg/3ml) 3 ml Q4H PRN HHN Shortness of Breath 10/10/16 18:15 10/15/16 18:14 10/13/16 11:27 Ceftazidime/ Sodium Chloride (Fortaz/Sodium Chloride) 110 ml @ 220 mls/hr Q8HR IV 10/10/16 14:00 10/16/16 13:59 10/13/16 05:56 Dextrose (Dextrose 50%) STAT PRN IV Hypoglycemia 10/05/16 11:30 11/04/16 11:29 Insulin Aspart (NovoLOG) start when feeding started Q6HR SUBQ 10/05/16 12:00 11/04/16 11:59 10/13/16 05:57 Lorazepam (Ativan 2mg/ml 1ml) 1 mg Q4H PRN IV For Anxiety 10/13/16 05:00 10/20/16 04:59 Ondansetron HCl (Zofran) 4 mg Q6H PRN IVP Nausea & Vomiting 10/05/16 11:30 11/04/16 11:29 Pantoprazole (Protonix) 40 mg DAILY IVP 10/06/16 09:00 11/05/16 08:59 10/13/16 08:31 Polyethylene Glycol 17 gm 17 gm DAILYPRN PRN ORAL Constipation 10/05/16 11:30 11/04/16 11:29 REN WRIGHT Oct 13, 2016 12:40
--- NOTE | 2016-10-13 15:04 | Internal Med Progress Note ---
Subjective Date of Service: Oct 13, 2016 Physician Name Tadeo Verdin Attending Physician Steve Rader MD Current Medications Medications (Trade) Dose Ordered Sig/Shraddha Route PRN Reason Start Time Stop Time Status Last Admin Dose Admin Acetaminophen (Tylenol) 650 mg Q4H PRN ORAL fever>100.5 10/05/16 11:30 11/04/16 11:29 Albuterol/ Ipratropium (DuoNeb 0.5-3(2.5)mg/3ml) 3 ml Q4H PRN HHN Shortness of Breath 10/10/16 18:15 10/15/16 18:14 10/13/16 11:27 Ceftazidime/ Sodium Chloride (Fortaz/Sodium Chloride) 110 ml @ 220 mls/hr Q8HR IV 10/10/16 14:00 10/16/16 13:59 10/13/16 13:53 Dextrose (Dextrose 50%) STAT PRN IV Hypoglycemia 10/05/16 11:30 11/04/16 11:29 Insulin Aspart (NovoLOG) start when feeding started Q6HR SUBQ 10/05/16 12:00 11/04/16 11:59 10/13/16 05:57 Lorazepam (Ativan 2mg/ml 1ml) 1 mg Q4H PRN IV For Anxiety 10/13/16 05:00 10/20/16 04:59 Ondansetron HCl (Zofran) 4 mg Q6H PRN IVP Nausea & Vomiting 10/05/16 11:30 11/04/16 11:29 Pantoprazole (Protonix) 40 mg DAILY IVP 10/06/16 09:00 11/05/16 08:59 10/13/16 08:31 Polyethylene Glycol 17 gm 17 gm DAILYPRN PRN ORAL Constipation 10/05/16 11:30 11/04/16 11:29 Allergies: Coded Allergies: No Known Allergies (Unverified , 06/17/16) ROS Limited/Unobtainable: Yes Subjective 66 YO M admitted with respiratory failure. JORDAN. Intubated and sedated. Await transfer to [facility]. Cover for Int Wilder-Dr Rader. Objective Last Vital Signs Date Time Temp Pulse Resp B/P Pulse Ox O2 Delivery O2 Flow Rate FiO2 10/13/16 14:54 40 4/9/17 14:53 89 16 100 Mechanical Ventilator 10/13/16 13:08 14.0 10/13/16 11:52 98.1 97/65 Laboratory Tests Test 10/13/16 03:20 White Blood Count 7.9 K/UL (4.8-10.8) Red Blood Count 3.02 M/UL (4.70-6.10) L Hemoglobin 8.5 G/DL (14.2-18.0) L Hematocrit 28.0 % (42.0-52.0) L Mean Corpuscular Volume 93 FL (80-99) Mean Corpuscular Hemoglobin 28.2 PG (27.0-31.0) Mean Corpuscular Hemoglobin Concent 30.4 G/DL (32.0-36.0) L Red Cell Distribution Width 17.3 % (11.6-14.8) H Platelet Count 397 K/UL (150-450) Mean Platelet Volume 6.1 FL (6.5-10.1) L Neutrophils (%) (Auto) 76.1 % (45.0-75.0) H Lymphocytes (%) (Auto) 15.7 % (20.0-45.0) L Monocytes (%) (Auto) 5.8 % (1.0-10.0) Eosinophils (%) (Auto) 1.7 % (0.0-3.0) Basophils (%) (Auto) 0.8 % (0.0-2.0) Sodium Level 138 mEQ/L (135-145) Potassium Level 4.6 mEQ/L (3.4-4.9) Chloride Level 94 mEQ/L (98-107) L Carbon Dioxide Level 38 mEQ/L (20-30) H Anion Gap 6 (5-15) Blood Urea Nitrogen 9 mg/dL (7-23) Creatinine 0.4 mg/dL (0.7-1.2) L Estimat Glomerular Filtration Rate > 60 mL/min (>60) Glucose Level 117 mg/dL (74-106) H Calcium Level 8.8 mg/dL (8.6-10.2) Phosphorus Level 3.2 mg/dL (2.5-4.8) Magnesium Level 2.1 mg/dL (1.7-2.5) Total Bilirubin < 0.2 mg/dL (0.0-1.2) Aspartate Amino Transf (AST/SGOT) 15 U/L (5-40) Alanine Aminotransferase (ALT/SGPT) 14 U/L (3-41) Alkaline Phosphatase 81 U/L (40-129) Total Protein 6.2 g/dL (6.6-8.7) L Albumin 2.5 g/dL (3.5-5.2) L Globulin 3.7 g/dL Albumin/Globulin Ratio 0.6 (1.0-2.7) L Intake and Output 10/12/16 10/13/16 19:00 07:00 Intake Total 870 ml 1200 ml Output Total 450 ml 1200 ml Balance 420 ml 0 ml Free Water 150 ml 150 ml IV Total 330 ml Tube Feeding 720 ml 720 ml Output Urine Total 450 ml 1200 ml # Bowel Movements 1 Objective General Appearance: moderate distress, thin EENT: PERRL/EOMI, normal ENT inspection Neck: non-tender, normal alignment, supple Cardiovascular: normal peripheral pulses, normal rate, regular rhythm, no gallop/murmur, no JVD Respiratory/Chest: Trach; Mech Vent; trach; respiratory distress, crackles/ rales, rhonchi - bilaterally, expiratory wheezing Abdomen: non tender, soft, no organomegaly, no mass, decreased bowel sounds Extremities: normal range of motion Skin: normal pigmentation, warm/dry Assessment/Plan Problem List: (1) Lung nodule (2) DVT (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 (3) Acute respiratory failure Assessment & Plan: S/P tracheostomy 10/03/16. Cont vent per pulmonary (4) COPD exacerbation Assessment & Plan: Continue duoneb. Continue vent per pulmonary. (5) Pneumonia Assessment & Plan: continue ceftazidime and IV flagyl per ID-continue tobramycin nebs (6) Leukocytosis Assessment & Plan: Continue PO vanco and IV flagyl per ID. (7) Dysphagia Assessment & Plan: See GI consult- S/P PEG 10/04/16. Assessment/Plan Discharge Planning: [facility] TADEO VERDIN Oct 13, 2016 15:04
[2016-10-13 16:00] VITALS: BP 97/72
[2016-10-13 20:00] VITALS: BP 115/79
--- NOTE | 2016-10-13 23:40 | General Progress Note ---
Assessment/Plan Assessment/Plan Assessment - abnormal LFT - resolved - loose stools - Leukocytosis - resolving - COPD - respiratory failure - s/p trach and PEG - dysphagia - OB (+) - possibly due to bleeding at time of PEG or Trach. Need to repeat in few weeks. Recommendations - check C Diff --> neg - follow LFT periodically - elevate HOB - GT care - repeat stool OB in 2-3 weeks Subjective Allergies: Coded Allergies: No Known Allergies (Unverified , 06/17/16) Subjective above noted tolerating TF comfortable no events overnight d/w RN Objective Last 24 Hour Vital Signs Date Time Temp Pulse Resp B/P Pulse Ox O2 Delivery O2 Flow Rate FiO2 10/13/16 21:06 95 19 40 10/13/16 20:00 40 10/13/16 20:00 98.0 95 18 115/79 99 Mechanical Ventilator 40 10/13/16 20:00 95 10/13/16 19:38 Mechanical Ventilator 10/13/16 19:37 Mechanical Ventilator 10/13/16 19:30 91 18 40 10/13/16 17:35 85 16 40 10/13/16 16:00 90 10/13/16 16:00 40 10/13/16 16:00 98.1 92 16 97/72 100 Mechanical Ventilator 40 10/13/16 14:54 40 10/13/16 14:53 89 16 100 Mechanical Ventilator 40 10/13/16 14:51 91 16 40 10/13/16 13:08 76 25 100 Venturi Mask 14.0 55 10/13/16 12:58 100 20 40 10/13/16 12:00 95 10/13/16 12:00 40 10/13/16 11:52 98.1 91 16 97/65 100 Mechanical Ventilator 40 10/13/16 11:28 89 17 100 Mechanical Ventilator 40 10/13/16 11:11 89 17 40 10/13/16 10:15 89 17 40 10/13/16 08:10 97.2 101 16 108/59 100 Mechanical Ventilator 40 10/13/16 08:00 40 10/13/16 08:00 92 10/13/16 07:45 100 16 100 Mechanical Ventilator 40 10/13/16 07:38 102 16 40 10/13/16 07:38 40 10/13/16 07:37 102 16 100 Mechanical Ventilator 40 10/13/16 05:17 103 16 40 4/9/17 04:00 40 10/13/16 04:00 98.0 98 22 123/80 100 Mechanical Ventilator 40 10/13/16 03:35 94 10/13/16 03:06 96 16 40 10/13/16 01:29 93 16 40 10/13/16 00:43 97.4 87 16 111/66 100 Mechanical Ventilator 40 10/13/16 00:00 40 Intake and Output 10/12/16 10/13/16 19:00 07:00 Intake Total 980 ml 1200 ml Output Total 450 ml 1200 ml Balance 530 ml 0 ml Free Water 150 ml 150 ml IV Total 110 ml 330 ml Tube Feeding 720 ml 720 ml Output Urine Total 450 ml 1200 ml # Bowel Movements 1 Laboratory Tests 10/13/16 03:20: White Blood Count 7.9, Red Blood Count 3.02L, Hemoglobin 8.5L, Hematocrit 28.0L , Mean Corpuscular Volume 93, Mean Corpuscular Hemoglobin 28.2, Mean Corpuscular Hemoglobin Concent 30.4L, Red Cell Distribution Width 17.3H, Platelet Count 397, Mean Platelet Volume 6.1L, Neutrophils (%) (Auto) 76.1H, Lymphocytes (%) (Auto) 15.7L, Monocytes (%) (Auto) 5.8, Eosinophils (%) (Auto) 1.7, Basophils (%) (Auto) 0.8, Sodium Level 138, Potassium Level 4.6, Chloride Level 94L, Carbon Dioxide Level 38H, Anion Gap 6, Blood Urea Nitrogen 9, Creatinine 0.4L, Estimat Glomerular Filtration Rate > 60, Glucose Level 117H, Calcium Level 8.8, Phosphorus Level 3.2, Magnesium Level 2.1, Total Bilirubin < 0.2, Aspartate Amino Transf (AST/SGOT) 15, Alanine Aminotransferase (ALT/SGPT) 14, Alkaline Phosphatase 81, Total Protein 6.2L, Albumin 2.5L, Globulin 3.7, Albumin/Globulin Ratio 0.6L Height (Feet): 6 Height (Inches): 2.00 Weight (Pounds): 126 Objective Elderly AA man NCAT (+) trach Coarse BS RRR soft NT abdomen, (+) GT responsive ROSEMARY BURROUGHS Oct 13, 2016 23:40
[2016-10-14] VITALS: BP 109/77
[2016-10-14 04:00] VITALS: BP 131/90
[2016-10-14 05:02] LABS: BASOPHILS % (AUTO) 1.3 % (0.0-2.0); EOSINOPHILS % (AUTO) 1.9 % (0.0-3.0); LYMPHOCYTES % (AUTO) 20.7 % (20.0-45.0); MEAN CORPUSCULAR HEMOGLOBIN 27.9 PG (27.0-31.0); MEAN CORPUSCULAR VOLUME 93 FL (80-99); MEAN PLATELET VOLUME 5.8 FL (6.5-10.1); MONOCYTES % (AUTO) 8.2 % (1.0-10.0); NEUTROPHILS % (AUTO) 67.9 % (45.0-75.0); PLATELET COUNT 385 K/UL (150-450); RED BLOOD COUNT 3.07 M/UL (4.70-6.10); RED CELL DISTRIBUTION WIDTH 16.6 % (11.6-14.8); WHITE BLOOD COUNT 6.5 K/UL (4.8-10.8)
[2016-10-14] MEDS: CEFTAZIDIME IV SCH ×3 (05:20→21:32)
[2016-10-14] MEDS: NS IV SCH ×3 (05:20→21:32)
[2016-10-14] MEDS: NovoLOG Insulin Flexpen SUBQ SCH ×4 (05:21→23:26)
[2016-10-14 05:26] LABS: ANION GAP 7 (5-15); CALCIUM 8.7 mg/dL (8.6-10.2); CARBON DIOXIDE 35 mEQ/L (20-30); CHLORIDE 95 mEQ/L (98-107); CREATININE 0.4 mg/dL (0.7-1.2); GLOMERULAR FILTRATION RATE > 60 mL/min (>60); HEMOLYSIS 16; POTASSIUM 4.8 mEQ/L (3.4-4.9); SODIUM 137 mEQ/L (135-145)
[2016-10-14 08:00] VITALS: BP 112/73
[2016-10-14] MEDS: Pantoprazole Inj IVP SCH (09:17)
[2016-10-14] MEDS: DuoNeb 0.5-3(2.5)mg/3ml neb HHN PRN ×3 (09:40→20:39)
[2016-10-14] MEDS ORDERED: NS 275ml ONE (10:14)
--- NOTE | 2016-10-14 11:40 | Infectious Diseases Prog Note ---
Assessment/Plan Assessment/Plan ASSESSMENT: 66 y/o male with: // COPD exacerbation - delayed SCx 4+ PSA pt has increased secretions - CXR 09/27: Lungs are hyperinflated. No new infiltrates - negative: influenza // Leukocytosis - SP ( post op, 10/01 SP steroids ) // Diarrhea x 1 resolved C Diff Neg // Febrile low grade // HIV and Hep B/C : neg // - PEG 10/04 // Acute VDRF - intubated 09/20, 10/03 SP trach // Severe pulmonary HTN / grade I diastolic dysfunction / mod TR // Pulmonary nodules // Chronic RLE DVT // Tobacco abuse // [facility] resident // Negative MRSA, VRE screens // NKDA // Full Code PLAN: - on Ceftazidime d# 12 / 14 ( 10/13 SP Jairon nebs d# 14 ) ( 10/11 SP Flagyl d# 10 ) ( 10/04 SP oral Vanco d# 3 ) ( 09/24 SP amikacin, invanz d# 5 / 5 ) ( 09/21 SP IV vancomycin d# 2 ) - taper steroids per pulm - monitor CBC, temperatures - monitor BMP - monitor CXR - vent support, wean as tolerated. Subjective Constitutional: Denies: anorexia, chills, drenching sweats, fatigue, fever, no symptoms, other Allergies: Coded Allergies: No Known Allergies (Unverified , 06/17/16) Objective Vital Signs Last 24 Hour Vital Signs Date Time Temp Pulse Resp B/P Pulse Ox O2 Delivery O2 Flow Rate FiO2 10/14/16 10:52 91 16 40 10/14/16 08:53 88 16 40 10/14/16 08:00 86 10/14/16 08:00 97.3 87 16 112/73 100 Mechanical Ventilator 40 10/14/16 08:00 40 10/14/16 06:51 97 17 40 10/14/16 05:30 102 17 40 10/14/16 04:00 40 10/14/16 04:00 98.4 94 16 131/90 100 Mechanical Ventilator 40 10/14/16 04:00 94 10/14/16 03:30 98 16 40 10/14/16 01:19 91 17 40 10/14/16 00:00 40 10/14/16 00:00 97.9 92 19 109/77 100 Mechanical Ventilator 40 10/14/16 00:00 92 10/13/16 23:30 93 18 40 10/13/16 21:06 95 19 40 10/13/16 20:00 40 10/13/16 20:00 98.0 95 18 115/79 99 Mechanical Ventilator 40 10/13/16 20:00 95 10/13/16 19:38 Mechanical Ventilator 10/13/16 19:37 Mechanical Ventilator 10/13/16 19:30 91 18 40 10/13/16 17:35 85 16 40 10/13/16 16:00 90 10/13/16 16:00 40 10/13/16 16:00 98.1 92 16 97/72 100 Mechanical Ventilator 40 10/13/16 14:54 40 10/13/16 14:53 89 16 100 Mechanical Ventilator 40 10/13/16 14:51 91 16 40 10/13/16 13:08 76 25 100 Venturi Mask 14.0 55 10/13/16 12:58 100 20 40 10/13/16 12:00 95 10/13/16 12:00 40 10/13/16 11:52 98.1 91 16 97/65 100 Mechanical Ventilator 40 Height (Feet): 6 Height (Inches): 2.00 Weight (Pounds): 126 HEENT: anicteric Respiratory/Chest: normal breath sounds Cardiovascular: no gallop/murmur Abdomen: no mass Laboratory Tests Test 10/14/16 03:27 White Blood Count 6.5 K/UL (4.8-10.8) Red Blood Count 3.07 M/UL (4.70-6.10) L Hemoglobin 8.5 G/DL (14.2-18.0) L Hematocrit 28.5 % (42.0-52.0) L Mean Corpuscular Volume 93 FL (80-99) Mean Corpuscular Hemoglobin 27.9 PG (27.0-31.0) Mean Corpuscular Hemoglobin Concent 30.0 G/DL (32.0-36.0) L Red Cell Distribution Width 16.6 % (11.6-14.8) H Platelet Count 385 K/UL (150-450) Mean Platelet Volume 5.8 FL (6.5-10.1) L Neutrophils (%) (Auto) 67.9 % (45.0-75.0) Lymphocytes (%) (Auto) 20.7 % (20.0-45.0) Monocytes (%) (Auto) 8.2 % (1.0-10.0) Eosinophils (%) (Auto) 1.9 % (0.0-3.0) Basophils (%) (Auto) 1.3 % (0.0-2.0) Sodium Level 137 mEQ/L (135-145) Potassium Level 4.8 mEQ/L (3.4-4.9) Chloride Level 95 mEQ/L (98-107) L Carbon Dioxide Level 35 mEQ/L (20-30) H Anion Gap 7 (5-15) Blood Urea Nitrogen 8 mg/dL (7-23) Creatinine 0.4 mg/dL (0.7-1.2) L Estimat Glomerular Filtration Rate > 60 mL/min (>60) Glucose Level 84 mg/dL (74-106) Calcium Level 8.7 mg/dL (8.6-10.2) Current Medications Medications (Trade) Dose Ordered Sig/Shraddha Route PRN Reason Start Time Stop Time Status Last Admin Dose Admin Acetaminophen (Tylenol) 650 mg Q4H PRN ORAL fever>100.5 10/05/16 11:30 11/04/16 11:29 Albuterol/ Ipratropium (DuoNeb 0.5-3(2.5)mg/3ml) 3 ml Q4H PRN HHN Shortness of Breath 10/10/16 18:15 10/15/16 18:14 10/14/16 09:40 Ceftazidime/ Sodium Chloride (Fortaz/Sodium Chloride) 110 ml @ 220 mls/hr Q8HR IV 10/10/16 14:00 10/16/16 13:59 10/14/16 05:20 Dextrose (Dextrose 50%) STAT PRN IV Hypoglycemia 10/05/16 11:30 11/04/16 11:29 Insulin Aspart (NovoLOG) start when feeding started Q6HR SUBQ 10/05/16 12:00 11/04/16 11:59 10/13/16 23:45 Lorazepam (Ativan 2mg/ml 1ml) 1 mg Q4H PRN IV For Anxiety 10/13/16 05:00 10/20/16 04:59 Ondansetron HCl (Zofran) 4 mg Q6H PRN IVP Nausea & Vomiting 10/05/16 11:30 11/04/16 11:29 Pantoprazole (Protonix) 40 mg DAILY IVP 10/06/16 09:00 11/05/16 08:59 10/14/16 09:17 Polyethylene Glycol 17 gm 17 gm DAILYPRN PRN ORAL Constipation 10/05/16 11:30 11/04/16 11:29 KIMBERLEE HINKLE M.D. Oct 14, 2016 11:40
[2016-10-14 12:00] VITALS: BP 93/60
--- NOTE | 2016-10-14 12:00 | Pulmonology Progress Note ---
Assessment/Plan Problems: (1) Respiratory failure (2) COPD exacerbation (3) Emphysema of lung Assessment/Plan improving tolerating diet weaning trials check eletrolytes doing better stable for transfer to a subacute facility awaiting transfer to a subacute facility. Subjective ROS Limited/Unobtainable: No Constitutional: Reports: no symptoms HEENT: Repors: no symptoms Allergies: Coded Allergies: No Known Allergies (Unverified , 06/17/16) Objective Last 24 Hour Vital Signs Date Time Temp Pulse Resp B/P Pulse Ox O2 Delivery O2 Flow Rate FiO2 10/14/16 10:52 91 16 40 10/14/16 08:53 88 16 40 10/14/16 08:00 86 10/14/16 08:00 97.3 87 16 112/73 100 Mechanical Ventilator 40 10/14/16 08:00 40 10/14/16 06:51 97 17 40 10/14/16 05:30 102 17 40 10/14/16 04:00 40 10/14/16 04:00 98.4 94 16 131/90 100 Mechanical Ventilator 40 10/14/16 04:00 94 10/14/16 03:30 98 16 40 10/14/16 01:19 91 17 40 10/14/16 00:00 40 10/14/16 00:00 97.9 92 19 109/77 100 Mechanical Ventilator 40 10/14/16 00:00 92 10/13/16 23:30 93 18 40 10/13/16 21:06 95 19 40 10/13/16 20:00 40 10/13/16 20:00 98.0 95 18 115/79 99 Mechanical Ventilator 40 10/13/16 20:00 95 10/13/16 19:38 Mechanical Ventilator 10/13/16 19:37 Mechanical Ventilator 10/13/16 19:30 91 18 40 10/13/16 17:35 85 16 40 10/13/16 16:00 90 10/13/16 16:00 40 10/13/16 16:00 98.1 92 16 97/72 100 Mechanical Ventilator 40 10/13/16 14:54 40 10/13/16 14:53 89 16 100 Mechanical Ventilator 40 10/13/16 14:51 91 16 40 10/13/16 13:08 76 25 100 Venturi Mask 14.0 55 10/13/16 12:58 100 20 40 10/13/16 12:00 95 10/13/16 12:00 40 Intake and Output 10/13/16 10/14/16 19:00 07:00 Intake Total 980 ml 690 ml Output Total 850 ml 2000 ml Balance 130 ml -1310 ml Free Water 150 ml 50 ml IV Total 110 ml 220 ml Tube Feeding 720 ml 420 ml Output Urine Total 850 ml 2000 ml Objective Status: awake HEENT: atraumatic, normocephalic Lungs: clear, decreased breath sounds Heart: HR/BP stable Abdomen: soft, non-tender Extremities: no C/C/E, edema Laboratory Tests 10/14/16 03:27: White Blood Count 6.5, Red Blood Count 3.07L, Hemoglobin 8.5L, Hematocrit 28.5L , Mean Corpuscular Volume 93, Mean Corpuscular Hemoglobin 27.9, Mean Corpuscular Hemoglobin Concent 30.0L, Red Cell Distribution Width 16.6H, Platelet Count 385, Mean Platelet Volume 5.8L, Neutrophils (%) (Auto) 67.9, Lymphocytes (%) (Auto) 20.7, Monocytes (%) (Auto) 8.2, Eosinophils (%) (Auto) 1.9, Basophils (%) (Auto) 1.3, Sodium Level 137, Potassium Level 4.8, Chloride Level 95L, Carbon Dioxide Level 35H, Anion Gap 7, Blood Urea Nitrogen 8, Creatinine 0.4L, Estimat Glomerular Filtration Rate > 60, Glucose Level 84, Calcium Level 8.7 Current Medications Medications (Trade) Dose Ordered Sig/Shraddha Route PRN Reason Start Time Stop Time Status Last Admin Dose Admin Acetaminophen (Tylenol) 650 mg Q4H PRN ORAL fever>100.5 10/05/16 11:30 11/04/16 11:29 Albuterol/ Ipratropium (DuoNeb 0.5-3(2.5)mg/3ml) 3 ml Q4H PRN HHN Shortness of Breath 10/10/16 18:15 10/15/16 18:14 10/14/16 09:40 Ceftazidime/ Sodium Chloride (Fortaz/Sodium Chloride) 110 ml @ 220 mls/hr Q8HR IV 10/10/16 14:00 10/16/16 13:59 10/14/16 05:20 Dextrose (Dextrose 50%) STAT PRN IV Hypoglycemia 10/05/16 11:30 11/04/16 11:29 Insulin Aspart (NovoLOG) start when feeding started Q6HR SUBQ 10/05/16 12:00 11/04/16 11:59 10/13/16 23:45 Lorazepam (Ativan 2mg/ml 1ml) 1 mg Q4H PRN IV For Anxiety 10/13/16 05:00 10/20/16 04:59 Ondansetron HCl (Zofran) 4 mg Q6H PRN IVP Nausea & Vomiting 10/05/16 11:30 11/04/16 11:29 Pantoprazole (Protonix) 40 mg DAILY IVP 10/06/16 09:00 11/05/16 08:59 10/14/16 09:17 Polyethylene Glycol 17 gm 17 gm DAILYPRN PRN ORAL Constipation 10/05/16 11:30 11/04/16 11:29 REN WRIGHT Oct 14, 2016 12:00
[2016-10-14 16:00] VITALS: BP 91/66
--- NOTE | 2016-10-14 17:03 | General Progress Note ---
Assessment/Plan Assessment/Plan Assessment - abnormal LFT - resolved - loose stools - Leukocytosis - resolving - COPD - respiratory failure - s/p trach and PEG - dysphagia - OB (+) - possibly due to bleeding at time of PEG or Trach. Need to repeat in few weeks. Recommendations - check C Diff --> neg - follow LFT periodically - elevate HOB - GT care - repeat stool OB in 2-3 weeks Subjective Allergies: Coded Allergies: No Known Allergies (Unverified , 06/17/16) Subjective above noted tolerating TF comfortable no events overnight d/w RN Objective Last 24 Hour Vital Signs Date Time Temp Pulse Resp B/P Pulse Ox O2 Delivery O2 Flow Rate FiO2 10/14/16 16:00 40 10/14/16 15:16 93 19 100 Mechanical Ventilator 40 10/14/16 15:16 40 10/14/16 15:15 93 17 40 10/14/16 15:15 89 17 100 Mechanical Ventilator 40 10/14/16 12:51 91 16 40 10/14/16 12:00 98.2 88 16 93/60 100 Mechanical Ventilator 40 10/14/16 12:00 83 10/14/16 12:00 40 10/14/16 10:52 91 16 40 10/14/16 08:53 88 16 40 10/14/16 08:00 86 10/14/16 08:00 97.3 87 16 112/73 100 Mechanical Ventilator 40 10/14/16 08:00 40 10/14/16 06:51 97 17 40 10/14/16 05:30 102 17 40 10/14/16 04:00 40 10/14/16 04:00 98.4 94 16 131/90 100 Mechanical Ventilator 40 10/14/16 04:00 94 10/14/16 03:30 98 16 40 10/14/16 01:19 91 17 40 10/14/16 00:00 40 10/14/16 00:00 97.9 92 19 109/77 100 Mechanical Ventilator 40 10/14/16 00:00 92 10/13/16 23:30 93 18 40 10/13/16 21:06 95 19 40 10/13/16 20:00 40 10/13/16 20:00 98.0 95 18 115/79 99 Mechanical Ventilator 40 10/13/16 20:00 95 10/13/16 19:38 Mechanical Ventilator 10/13/16 19:37 Mechanical Ventilator 10/13/16 19:30 91 18 40 10/13/16 17:35 85 16 40 Intake and Output 10/13/16 10/14/16 19:00 07:00 Intake Total 980 ml 750 ml Output Total 850 ml 2000 ml Balance 130 ml -1250 ml Free Water 150 ml 50 ml IV Total 110 ml 220 ml Tube Feeding 720 ml 480 ml Output Urine Total 850 ml 2000 ml Laboratory Tests 10/14/16 03:27: White Blood Count 6.5, Red Blood Count 3.07L, Hemoglobin 8.5L, Hematocrit 28.5L , Mean Corpuscular Volume 93, Mean Corpuscular Hemoglobin 27.9, Mean Corpuscular Hemoglobin Concent 30.0L, Red Cell Distribution Width 16.6H, Platelet Count 385, Mean Platelet Volume 5.8L, Neutrophils (%) (Auto) 67.9, Lymphocytes (%) (Auto) 20.7, Monocytes (%) (Auto) 8.2, Eosinophils (%) (Auto) 1.9, Basophils (%) (Auto) 1.3, Sodium Level 137, Potassium Level 4.8, Chloride Level 95L, Carbon Dioxide Level 35H, Anion Gap 7, Blood Urea Nitrogen 8, Creatinine 0.4L, Estimat Glomerular Filtration Rate > 60, Glucose Level 84, Calcium Level 8.7 Height (Feet): 6 Height (Inches): 2.00 Weight (Pounds): 126 Objective Elderly AA man NCAT (+) trach Coarse BS RRR soft NT abdomen, (+) GT responsive ROSEMARY BURROUGHS Oct 14, 2016 17:03
--- NOTE | 2016-10-14 18:06 | Internal Med Progress Note ---
Subjective Date of Service: Oct 14, 2016 Physician Name Tadeo Verdin Attending Physician Steve Rader MD Current Medications Medications (Trade) Dose Ordered Sig/Shraddha Route PRN Reason Start Time Stop Time Status Last Admin Dose Admin Acetaminophen (Tylenol) 650 mg Q4H PRN ORAL fever>100.5 10/05/16 11:30 11/04/16 11:29 Albuterol/ Ipratropium (DuoNeb 0.5-3(2.5)mg/3ml) 3 ml Q4H PRN HHN Shortness of Breath 10/10/16 18:15 10/15/16 18:14 10/14/16 15:15 Ceftazidime/ Sodium Chloride (Fortaz/Sodium Chloride) 110 ml @ 220 mls/hr Q8HR IV 10/10/16 14:00 10/16/16 13:59 10/14/16 15:10 Dextrose (Dextrose 50%) STAT PRN IV Hypoglycemia 10/05/16 11:30 11/04/16 11:29 Insulin Aspart (NovoLOG) start when feeding started Q6HR SUBQ 10/05/16 12:00 11/04/16 11:59 10/13/16 23:45 Lorazepam (Ativan 2mg/ml 1ml) 1 mg Q4H PRN IV For Anxiety 10/13/16 05:00 10/20/16 04:59 Ondansetron HCl (Zofran) 4 mg Q6H PRN IVP Nausea & Vomiting 10/05/16 11:30 11/04/16 11:29 Pantoprazole (Protonix) 40 mg DAILY IVP 10/06/16 09:00 11/05/16 08:59 10/14/16 09:17 Polyethylene Glycol 17 gm 17 gm DAILYPRN PRN ORAL Constipation 10/05/16 11:30 11/04/16 11:29 Allergies: Coded Allergies: No Known Allergies (Unverified , 06/17/16) ROS Limited/Unobtainable: Yes Subjective 66 YO M admitted with respiratory failure. JORDAN. Intubated and sedated. Await transfer to [facility]. Cover for Int Med-Dr Rader. Objective Last Vital Signs Date Time Temp Pulse Resp B/P Pulse Ox O2 Delivery O2 Flow Rate FiO2 10/14/16 17:32 95 17 40 10/14/16 16:00 97.5 91/66 100 Mechanical Ventilator 10/13/16 13:08 14.0 Laboratory Tests Test 10/14/16 03:27 White Blood Count 6.5 K/UL (4.8-10.8) Red Blood Count 3.07 M/UL (4.70-6.10) L Hemoglobin 8.5 G/DL (14.2-18.0) L Hematocrit 28.5 % (42.0-52.0) L Mean Corpuscular Volume 93 FL (80-99) Mean Corpuscular Hemoglobin 27.9 PG (27.0-31.0) Mean Corpuscular Hemoglobin Concent 30.0 G/DL (32.0-36.0) L Red Cell Distribution Width 16.6 % (11.6-14.8) H Platelet Count 385 K/UL (150-450) Mean Platelet Volume 5.8 FL (6.5-10.1) L Neutrophils (%) (Auto) 67.9 % (45.0-75.0) Lymphocytes (%) (Auto) 20.7 % (20.0-45.0) Monocytes (%) (Auto) 8.2 % (1.0-10.0) Eosinophils (%) (Auto) 1.9 % (0.0-3.0) Basophils (%) (Auto) 1.3 % (0.0-2.0) Sodium Level 137 mEQ/L (135-145) Potassium Level 4.8 mEQ/L (3.4-4.9) Chloride Level 95 mEQ/L (98-107) L Carbon Dioxide Level 35 mEQ/L (20-30) H Anion Gap 7 (5-15) Blood Urea Nitrogen 8 mg/dL (7-23) Creatinine 0.4 mg/dL (0.7-1.2) L Estimat Glomerular Filtration Rate > 60 mL/min (>60) Glucose Level 84 mg/dL (74-106) Calcium Level 8.7 mg/dL (8.6-10.2) Intake and Output 10/13/16 10/14/16 19:00 07:00 Intake Total 980 ml 750 ml Output Total 850 ml 2000 ml Balance 130 ml -1250 ml Free Water 150 ml 50 ml IV Total 110 ml 220 ml Tube Feeding 720 ml 480 ml Output Urine Total 850 ml 2000 ml Objective General Appearance: moderate distress, thin EENT: PERRL/EOMI, normal ENT inspection Neck: non-tender, normal alignment, supple Cardiovascular: normal peripheral pulses, normal rate, regular rhythm, no gallop/murmur, no JVD Respiratory/Chest: Trach; Mech Vent; trach; respiratory distress, crackles/ rales, rhonchi - bilaterally, expiratory wheezing Abdomen: non tender, soft, no organomegaly, no mass, decreased bowel sounds Extremities: normal range of motion Skin: normal pigmentation, warm/dry Assessment/Plan Problem List: (1) Lung nodule (2) DVT (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 (3) Acute respiratory failure Assessment & Plan: S/P tracheostomy 10/03/16. Cont vent per pulmonary (4) COPD exacerbation Assessment & Plan: Continue duoneb. Continue vent per pulmonary. (5) Pneumonia Assessment & Plan: continue ceftazidime and IV flagyl per ID-continue tobramycin nebs (6) Leukocytosis Assessment & Plan: Continue PO vanco and IV flagyl per ID. (7) Dysphagia Assessment & Plan: See GI consult- S/P PEG 10/04/16. Assessment/Plan Discharge Planning: [facility] TADEO VERDIN Oct 14, 2016 18:06
[2016-10-14 20:54] VITALS: BP 123/76
[2016-10-15] VITALS: BP 123/74
--- NOTE | 2016-10-15 00:58 | Consultation ---
DATE OF CONSULTATION: ATTENDING PHYSICIAN: Demetrius Andrade M.D. CONSULTING PHYSICIAN: Michelle Bernal M.D. CHIEF COMPLAINT: Sacral stage II pressure ulcer. HISTORY OF PRESENT ILLNESS: This is a 66-year-old gentleman who resides in a nursing facility. He was admitted to the hospital on 09/20/2016 for shortness of breath. He does have a history of chronic obstructive pulmonary disease. PAST MEDICAL HISTORY: COPD and history of respiratory failure. MEDICATIONS: Outpatient medications are Tylenol, Advair, Tessalon Perles, Diamox, DuoNeb nebulizer, multivitamin, Zofran, Nexium , folic acid, prednisone 20 mg daily, theophylline extended release, and other vitamins. Inpatient medications include ceftazidime, Protonix, and lorazepam. ALLERGIES: No known drug allergies. REVIEW OF SYSTEMS: The patient has no complaints. He has no shortness of breath. He does complain of some pain in the sacral area where he has a pressure ulcer. PHYSICAL EXAMINATION: GENERAL: The patient is alert and oriented in no acute distress. CARDIOVASCULAR: Regular rate and rhythm. GASTROINTESTINAL: His G-tube site is clean with no granulation tissue. EXTREMITIES: Good range of motion. SKIN: The patient has healed pressure ulcer of his sacrum that is epithelialized. ASSESSMENT: Healed sacral pressure ulcer. RECOMMENDATIONS: Cleanse with normal saline. Apply Triad cream with clean dry dressing. Please keep area clean and dry. Turn and reposition q.2 hours and p.r.n. Please optimize nutrition. Offload heels and recommend low air loss mattress and recommend pain medications for pain control. Michelle Bernal M.D. DR: Norbert JOB#: [id number] CC: REGULO
[2016-10-15 04:00] VITALS: BP 110/72
[2016-10-15] MEDS: DuoNeb 0.5-3(2.5)mg/3ml neb HHN PRN ×3 (05:20→14:34)
[2016-10-15 05:21] LABS: BASOPHILS % (AUTO) 1.4 % (0.0-2.0); EOSINOPHILS % (AUTO) 1.6 % (0.0-3.0); LYMPHOCYTES % (AUTO) 16.6 % (20.0-45.0); MEAN CORPUSCULAR HEMOGLOBIN 27.4 PG (27.0-31.0); MEAN CORPUSCULAR HGB CONC 29.5 G/DL (32.0-36.0); MEAN CORPUSCULAR VOLUME 93 FL (80-99); MEAN PLATELET VOLUME 6.4 FL (6.5-10.1); MONOCYTES % (AUTO) 7.8 % (1.0-10.0); NEUTROPHILS % (AUTO) 72.6 % (45.0-75.0); PLATELET COUNT 424 K/UL (150-450); RED BLOOD COUNT 3.12 M/UL (4.70-6.10); RED CELL DISTRIBUTION WIDTH 16.4 % (11.6-14.8); WHITE BLOOD COUNT 5.5 K/UL (4.8-10.8)
[2016-10-15] MEDS: NS IV SCH ×3 (05:41→21:30)
[2016-10-15] MEDS: CEFTAZIDIME IV SCH ×3 (05:41→21:30)
[2016-10-15 05:42] LABS: ANION GAP 4 (5-15); CALCIUM 8.9 mg/dL (8.6-10.2); CARBON DIOXIDE 36 mEQ/L (20-30); CHLORIDE 99 mEQ/L (98-107); CREATININE 0.4 mg/dL (0.7-1.2); GLOMERULAR FILTRATION RATE > 60 mL/min (>60); HEMOLYSIS 3; POTASSIUM 4.5 mEQ/L (3.4-4.9); SODIUM 139 mEQ/L (135-145)
[2016-10-15] MEDS: NovoLOG Insulin Flexpen SUBQ SCH ×3 (05:42→18:00)
[2016-10-15 08:00] VITALS: BP 114/69
[2016-10-15] MEDS: Pantoprazole Inj IVP SCH (09:29)
--- NOTE | 2016-10-15 10:33 | Infectious Diseases Prog Note ---
Assessment/Plan Assessment/Plan ASSESSMENT: 66 y/o male with: // COPD exacerbation - delayed SCx 4+ PSA pt has increased secretions - CXR 09/27: Lungs are hyperinflated. No new infiltrates - negative: influenza // Leukocytosis - SP ( post op, 10/01 SP steroids ) // Diarrhea x 1 resolved C Diff Neg // Febrile low grade // HIV and Hep B/C : neg // - PEG 10/04 // Acute VDRF - intubated 09/20, 10/03 SP trach // Severe pulmonary HTN / grade I diastolic dysfunction / mod TR // Pulmonary nodules // Chronic RLE DVT // Tobacco abuse // NH resident // Negative MRSA, VRE screens // NKDA // Full Code PLAN: - on Ceftazidime d# 13 / 14 ( 10/13 SP Jairon nebs d# 14 ) ( 10/11 SP Flagyl d# 10 ) ( 10/04 SP oral Vanco d# 3 ) ( 09/24 SP amikacin, invanz d# 5 / 5 ) ( 09/21 SP IV vancomycin d# 2 ) - taper steroids per pulm - monitor CBC, temperatures - monitor BMP - monitor CXR - vent support, wean as tolerated. Subjective Constitutional: Denies: anorexia, chills, drenching sweats, fatigue, fever, no symptoms, other Allergies: Coded Allergies: No Known Allergies (Unverified , 06/17/16) Objective Vital Signs Last 24 Hour Vital Signs Date Time Temp Pulse Resp B/P Pulse Ox O2 Delivery O2 Flow Rate FiO2 10/15/16 08:43 85 16 40 10/15/16 08:00 40 10/15/16 08:00 84 10/15/16 08:00 97.7 84 20 114/69 100 Mechanical Ventilator 40 10/15/16 06:58 94 21 40 10/15/16 05:38 90 16 100 Mechanical Ventilator 40 10/15/16 05:20 40 10/15/16 05:19 89 17 100 Mechanical Ventilator 40 10/15/16 05:18 89 17 40 10/15/16 04:30 40 10/15/16 04:07 85 10/15/16 04:00 97.7 96 18 110/72 100 Mechanical Ventilator 40 10/15/16 03:34 92 20 40 10/15/16 01:03 92 17 40 10/15/16 00:21 40 10/15/16 00:00 97.4 62 18 123/74 100 Mechanical Ventilator 40 10/14/16 23:53 97 10/14/16 22:55 90 16 40 10/14/16 20:54 97.3 90 16 123/76 100 Mechanical Ventilator 40 10/14/16 20:41 99 16 100 Mechanical Ventilator 40 10/14/16 20:41 96 16 100 Mechanical Ventilator 40 10/14/16 20:41 40 10/14/16 20:38 98 17 40 10/14/16 20:00 91 10/14/16 20:00 40 10/14/16 18:51 94 18 40 10/14/16 17:32 95 17 40 10/14/16 16:00 97.5 96 16 91/66 100 Mechanical Ventilator 40 10/14/16 16:00 40 10/14/16 16:00 83 10/14/16 15:16 93 19 100 Mechanical Ventilator 40 10/14/16 15:16 40 10/14/16 15:15 93 17 40 10/14/16 15:15 89 17 100 Mechanical Ventilator 40 10/14/16 12:51 91 16 40 10/14/16 12:00 98.2 88 16 93/60 100 Mechanical Ventilator 40 10/14/16 12:00 83 10/14/16 12:00 40 10/14/16 10:52 91 16 40 Height (Feet): 6 Height (Inches): 2.00 Weight (Pounds): 126 HEENT: anicteric Respiratory/Chest: no respiratory distress Cardiovascular: regular rhythm Abdomen: non distended Laboratory Tests Test 10/15/16 04:00 White Blood Count 5.5 K/UL (4.8-10.8) Red Blood Count 3.12 M/UL (4.70-6.10) L Hemoglobin 8.6 G/DL (14.2-18.0) L Hematocrit 29.1 % (42.0-52.0) L Mean Corpuscular Volume 93 FL (80-99) Mean Corpuscular Hemoglobin 27.4 PG (27.0-31.0) Mean Corpuscular Hemoglobin Concent 29.5 G/DL (32.0-36.0) L Red Cell Distribution Width 16.4 % (11.6-14.8) H Platelet Count 424 K/UL (150-450) Mean Platelet Volume 6.4 FL (6.5-10.1) L Neutrophils (%) (Auto) 72.6 % (45.0-75.0) Lymphocytes (%) (Auto) 16.6 % (20.0-45.0) L Monocytes (%) (Auto) 7.8 % (1.0-10.0) Eosinophils (%) (Auto) 1.6 % (0.0-3.0) Basophils (%) (Auto) 1.4 % (0.0-2.0) Sodium Level 139 mEQ/L (135-145) Potassium Level 4.5 mEQ/L (3.4-4.9) Chloride Level 99 mEQ/L (98-107) Carbon Dioxide Level 36 mEQ/L (20-30) H Anion Gap 4 (5-15) L Blood Urea Nitrogen 8 mg/dL (7-23) Creatinine 0.4 mg/dL (0.7-1.2) L Estimat Glomerular Filtration Rate > 60 mL/min (>60) Glucose Level 107 mg/dL (74-106) H Calcium Level 8.9 mg/dL (8.6-10.2) Current Medications Medications (Trade) Dose Ordered Sig/Shraddha Route PRN Reason Start Time Stop Time Status Last Admin Dose Admin Acetaminophen (Tylenol) 650 mg Q4H PRN ORAL fever>100.5 10/05/16 11:30 11/04/16 11:29 Albuterol/ Ipratropium (DuoNeb 0.5-3(2.5)mg/3ml) 3 ml Q4H PRN HHN Shortness of Breath 10/10/16 18:15 10/15/16 18:14 10/15/16 08:47 Ceftazidime/ Sodium Chloride (Fortaz/Sodium Chloride) 110 ml @ 220 mls/hr Q8HR IV 10/10/16 14:00 10/16/16 13:59 10/15/16 05:41 Dextrose (Dextrose 50%) STAT PRN IV Hypoglycemia 10/05/16 11:30 11/04/16 11:29 Insulin Aspart (NovoLOG) start when feeding started Q6HR SUBQ 10/05/16 12:00 11/04/16 11:59 10/13/16 23:45 Lorazepam (Ativan 2mg/ml 1ml) 1 mg Q4H PRN IV For Anxiety 10/13/16 05:00 10/20/16 04:59 Ondansetron HCl (Zofran) 4 mg Q6H PRN IVP Nausea & Vomiting 10/05/16 11:30 11/04/16 11:29 Pantoprazole (Protonix) 40 mg DAILY IVP 10/06/16 09:00 11/05/16 08:59 10/15/16 09:29 Polyethylene Glycol 17 gm 17 gm DAILYPRN PRN ORAL Constipation 10/05/16 11:30 11/04/16 11:29 KIMBERLEE HINKLE M.D. Oct 15, 2016 10:33
--- NOTE | 2016-10-15 11:38 | Pulmonology Progress Note ---
Assessment/Plan Problems: (1) Respiratory failure (2) COPD exacerbation (3) Emphysema of lung Assessment/Plan improving tolerating diet weaning trials check eletrolytes doing better stable for transfer to a subacute facility awaiting transfer to a subacute facility. Subjective ROS Limited/Unobtainable: No Interval Events: comfortable awake Allergies: Coded Allergies: No Known Allergies (Unverified , 06/17/16) Objective Last 24 Hour Vital Signs Date Time Temp Pulse Resp B/P Pulse Ox O2 Delivery O2 Flow Rate FiO2 10/15/16 10:37 90 18 40 10/15/16 08:43 85 16 40 10/15/16 08:00 40 10/15/16 08:00 84 10/15/16 08:00 97.7 84 20 114/69 100 Mechanical Ventilator 40 10/15/16 06:58 94 21 40 10/15/16 05:38 90 16 100 Mechanical Ventilator 40 10/15/16 05:20 40 10/15/16 05:19 89 17 100 Mechanical Ventilator 40 10/15/16 05:18 89 17 40 10/15/16 04:30 40 10/15/16 04:07 85 10/15/16 04:00 97.7 96 18 110/72 100 Mechanical Ventilator 40 10/15/16 03:34 92 20 40 10/15/16 01:03 92 17 40 10/15/16 00:21 40 10/15/16 00:00 97.4 62 18 123/74 100 Mechanical Ventilator 40 10/14/16 23:53 97 10/14/16 22:55 90 16 40 10/14/16 20:54 97.3 90 16 123/76 100 Mechanical Ventilator 40 10/14/16 20:41 99 16 100 Mechanical Ventilator 40 10/14/16 20:41 96 16 100 Mechanical Ventilator 40 10/14/16 20:41 40 10/14/16 20:38 98 17 40 10/14/16 20:00 91 10/14/16 20:00 40 10/14/16 18:51 94 18 40 10/14/16 17:32 95 17 40 10/14/16 16:00 97.5 96 16 91/66 100 Mechanical Ventilator 40 10/14/16 16:00 40 10/14/16 16:00 83 10/14/16 15:16 93 19 100 Mechanical Ventilator 40 10/14/16 15:16 40 10/14/16 15:15 93 17 40 10/14/16 15:15 89 17 100 Mechanical Ventilator 40 10/14/16 12:51 91 16 40 10/14/16 12:00 98.2 88 16 93/60 100 Mechanical Ventilator 40 10/14/16 12:00 83 10/14/16 12:00 40 Intake and Output 10/14/16 10/15/16 19:00 07:00 Intake Total 650 ml 910 ml Output Total 850 ml 1000 ml Balance -200 ml -90 ml Free Water 200 ml IV Total 110 ml 110 ml Tube Feeding 540 ml 600 ml Output Urine Total 850 ml 1000 ml # Bowel Movements 1 Objective Status: awake HEENT: atraumatic, normocephalic Lungs: clear, decreased breath sounds Heart: HR/BP stable Abdomen: soft, non-tender Extremities: no C/C/E, edema Laboratory Tests 10/15/16 04:00: White Blood Count 5.5, Red Blood Count 3.12L, Hemoglobin 8.6L, Hematocrit 29.1L , Mean Corpuscular Volume 93, Mean Corpuscular Hemoglobin 27.4, Mean Corpuscular Hemoglobin Concent 29.5L, Red Cell Distribution Width 16.4H, Platelet Count 424, Mean Platelet Volume 6.4L, Neutrophils (%) (Auto) 72.6, Lymphocytes (%) (Auto) 16.6L, Monocytes (%) (Auto) 7.8, Eosinophils (%) (Auto) 1.6, Basophils (%) (Auto) 1.4, Sodium Level 139, Potassium Level 4.5, Chloride Level 99, Carbon Dioxide Level 36H, Anion Gap 4L, Blood Urea Nitrogen 8, Creatinine 0.4L, Estimat Glomerular Filtration Rate > 60, Glucose Level 107H, Calcium Level 8.9 Current Medications Medications (Trade) Dose Ordered Sig/Shraddha Route PRN Reason Start Time Stop Time Status Last Admin Dose Admin Acetaminophen (Tylenol) 650 mg Q4H PRN ORAL fever>100.5 10/05/16 11:30 11/04/16 11:29 Albuterol/ Ipratropium (DuoNeb 0.5-3(2.5)mg/3ml) 3 ml Q4H PRN HHN Shortness of Breath 10/10/16 18:15 10/15/16 18:14 10/15/16 08:47 Ceftazidime/ Sodium Chloride (Fortaz/Sodium Chloride) 110 ml @ 220 mls/hr Q8HR IV 10/10/16 14:00 10/16/16 13:59 10/15/16 05:41 Dextrose (Dextrose 50%) STAT PRN IV Hypoglycemia 10/05/16 11:30 11/04/16 11:29 Insulin Aspart (NovoLOG) start when feeding started Q6HR SUBQ 10/05/16 12:00 11/04/16 11:59 10/13/16 23:45 Lorazepam (Ativan 2mg/ml 1ml) 1 mg Q4H PRN IV For Anxiety 10/13/16 05:00 10/20/16 04:59 Ondansetron HCl (Zofran) 4 mg Q6H PRN IVP Nausea & Vomiting 10/05/16 11:30 11/04/16 11:29 Pantoprazole (Protonix) 40 mg DAILY IVP 10/06/16 09:00 11/05/16 08:59 10/15/16 09:29 Polyethylene Glycol 17 gm 17 gm DAILYPRN PRN ORAL Constipation 10/05/16 11:30 11/04/16 11:29 REN WRIGHT Oct 15, 2016 11:38
[2016-10-15 12:00] VITALS: BP 112/70
[2016-10-15 16:11] VITALS: BP 108/73
[2016-10-15 20:00] VITALS: BP 98/55
[2016-10-15] MEDS: LORazepam Inj 2mg/ml 1ml IV PRN (20:13)
--- NOTE | 2016-10-15 22:20 | General Progress Note ---
Assessment/Plan Assessment/Plan Assessment - abnormal LFT - resolved - loose stools - Leukocytosis - resolving - COPD - respiratory failure - s/p trach and PEG - dysphagia - OB (+) - possibly due to bleeding at time of PEG or Trach. Need to repeat in few weeks. Recommendations - check C Diff --> neg - follow LFT periodically - elevate HOB - GT care - repeat stool OB in 2-3 weeks Subjective Allergies: Coded Allergies: No Known Allergies (Unverified , 06/17/16) Subjective above noted tolerating TF comfortable no events overnight d/c planning noted Objective Last 24 Hour Vital Signs Date Time Temp Pulse Resp B/P Pulse Ox O2 Delivery O2 Flow Rate FiO2 10/15/16 21:13 80 16 40 10/15/16 20:00 93 10/15/16 20:00 40 10/15/16 20:00 97.5 89 19 98/55 100 Mechanical Ventilator 10/15/16 19:18 84 16 40 10/15/16 16:11 97.5 95 21 108/73 100 Mechanical Ventilator 40 10/15/16 16:11 95 10/15/16 16:11 40 10/15/16 14:39 96 16 100 Mechanical Ventilator 40 10/15/16 14:34 96 16 40 10/15/16 14:34 96 16 100 Mechanical Ventilator 40 10/15/16 14:34 40 10/15/16 12:54 89 16 40 10/15/16 12:00 93 10/15/16 12:00 40 10/15/16 12:00 97.6 93 19 112/70 100 Mechanical Ventilator 40 10/15/16 10:37 90 18 40 10/15/16 08:43 85 16 40 10/15/16 08:00 40 10/15/16 08:00 84 10/15/16 08:00 97.7 84 20 114/69 100 Mechanical Ventilator 40 10/15/16 06:58 94 21 40 10/15/16 05:38 90 16 100 Mechanical Ventilator 40 10/15/16 05:20 40 10/15/16 05:19 89 17 100 Mechanical Ventilator 40 10/15/16 05:18 89 17 40 10/15/16 04:30 40 10/15/16 04:07 85 10/15/16 04:00 97.7 96 18 110/72 100 Mechanical Ventilator 40 10/15/16 03:34 92 20 40 4/11/17 01:03 92 17 40 10/15/16 00:21 40 10/15/16 00:00 97.4 62 18 123/74 100 Mechanical Ventilator 40 10/14/16 23:53 97 10/14/16 22:55 90 16 40 Intake and Output 10/14/16 10/15/16 19:00 07:00 Intake Total 650 ml 970 ml Output Total 850 ml 1000 ml Balance -200 ml -30 ml Free Water 200 ml IV Total 110 ml 110 ml Tube Feeding 540 ml 660 ml Output Urine Total 850 ml 1000 ml # Bowel Movements 1 Laboratory Tests 10/15/16 04:00: White Blood Count 5.5, Red Blood Count 3.12L, Hemoglobin 8.6L, Hematocrit 29.1L , Mean Corpuscular Volume 93, Mean Corpuscular Hemoglobin 27.4, Mean Corpuscular Hemoglobin Concent 29.5L, Red Cell Distribution Width 16.4H, Platelet Count 424, Mean Platelet Volume 6.4L, Neutrophils (%) (Auto) 72.6, Lymphocytes (%) (Auto) 16.6L, Monocytes (%) (Auto) 7.8, Eosinophils (%) (Auto) 1.6, Basophils (%) (Auto) 1.4, Sodium Level 139, Potassium Level 4.5, Chloride Level 99, Carbon Dioxide Level 36H, Anion Gap 4L, Blood Urea Nitrogen 8, Creatinine 0.4L, Estimat Glomerular Filtration Rate > 60, Glucose Level 107H, Calcium Level 8.9 Height (Feet): 6 Height (Inches): 2.00 Weight (Pounds): 126 Objective Elderly AA man NCAT (+) trach Coarse BS RRR soft NT abdomen, (+) GT responsive ROSEMARY BURROUGHS Oct 15, 2016 22:20
[2016-10-16] VITALS: BP 120/78
[2016-10-16 04:00] VITALS: BP 90/56
[2016-10-16] MEDS: NS IV SCH (06:30)
[2016-10-16] MEDS: CEFTAZIDIME IV SCH (06:30)
[2016-10-16] MEDS: NovoLOG Insulin Flexpen SUBQ SCH ×4 (06:30→18:00)
[2016-10-16 08:00] VITALS: BP 105/72
[2016-10-16] MEDS: Pantoprazole Inj IVP SCH (09:37)
--- NOTE | 2016-10-16 10:25 | Internal Med Progress Note ---
Subjective Date of Service: Oct 15, 2016 Physician Name Tadeo Verdin Attending Physician Steve Rader MD Current Medications Medications (Trade) Dose Ordered Sig/Shraddha Route PRN Reason Start Time Stop Time Status Last Admin Dose Admin Acetaminophen (Tylenol) 650 mg Q4H PRN ORAL fever>100.5 10/05/16 11:30 11/04/16 11:29 Ceftazidime/ Sodium Chloride (Fortaz/Sodium Chloride) 110 ml @ 220 mls/hr Q8HR IV 10/10/16 14:00 10/16/16 13:59 10/16/16 06:30 Dextrose (Dextrose 50%) STAT PRN IV Hypoglycemia 10/05/16 11:30 11/04/16 11:29 Insulin Aspart (NovoLOG) start when feeding started Q6HR SUBQ 10/05/16 12:00 11/04/16 11:59 10/13/16 23:45 Lorazepam (Ativan 2mg/ml 1ml) 1 mg Q4H PRN IV For Anxiety 10/13/16 05:00 10/20/16 04:59 10/15/16 20:13 Ondansetron HCl (Zofran) 4 mg Q6H PRN IVP Nausea & Vomiting 10/05/16 11:30 11/04/16 11:29 Pantoprazole (Protonix) 40 mg DAILY IVP 10/06/16 09:00 11/05/16 08:59 10/16/16 09:37 Polyethylene Glycol 17 gm 17 gm DAILYPRN PRN ORAL Constipation 10/05/16 11:30 11/04/16 11:29 Allergies: Coded Allergies: No Known Allergies (Unverified , 06/17/16) ROS Limited/Unobtainable: Yes Subjective Late entry: Computer down 10/15/16. 66 YO M admitted with respiratory failure. JORDAN. Intubated and sedated. Await transfer to [facility]. Cover for Int Med-Dr Rader. Objective Last Vital Signs Date Time Temp Pulse Resp B/P Pulse Ox O2 Delivery O2 Flow Rate FiO2 10/16/16 09:11 84 16 40 10/16/16 08:00 96.9 105/72 100 Mechanical Ventilator 10/13/16 13:08 14.0 Intake and Output 10/15/16 10/16/16 19:00 07:00 Intake Total 920 ml 740 ml Output Total 2100 ml Balance -1180 ml 740 ml Free Water 200 ml 200 ml Tube Feeding 720 ml 540 ml Output Urine Total 2100 ml # Bowel Movements 2 Objective General Appearance: moderate distress, thin EENT: PERRL/EOMI, normal ENT inspection Neck: non-tender, normal alignment, supple Cardiovascular: normal peripheral pulses, normal rate, regular rhythm, no gallop/murmur, no JVD Respiratory/Chest: Trach; Mech Vent; trach; respiratory distress, crackles/ rales, rhonchi - bilaterally, expiratory wheezing Abdomen: non tender, soft, no organomegaly, no mass, decreased bowel sounds Extremities: normal range of motion Skin: normal pigmentation, warm/dry Assessment/Plan Problem List: (1) Lung nodule (2) DVT (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 (3) Acute respiratory failure Assessment & Plan: S/P tracheostomy 10/03/16. Cont vent per pulmonary (4) COPD exacerbation Assessment & Plan: Continue duoneb. Continue vent per pulmonary. (5) Pneumonia Assessment & Plan: continue ceftazidime and IV flagyl per ID-continue tobramycin nebs (6) Leukocytosis Assessment & Plan: Continue PO vanco and IV flagyl per ID. (7) Dysphagia Assessment & Plan: See GI consult- S/P PEG 10/04/16. Status: not improved Assessment/Plan Discharge Planning: [facility] TADEO VERDIN Oct 16, 2016 10:25
--- NOTE | 2016-10-16 11:19 | Wound Care Consultation ---
Wound Assessment Wound Assessment : Wound Number: #1 Wound Present on Admission: No New Wound: No Status Change of Wound: No Wound Location Body Site Modif: mid Wound Location Body Site: sacral Wound Type: pressure ulcer Nisha Test: Does not Nisha Pressure Ulcer Stage: II - RESOLVED. Wound Drainage Amount: None Wound Drainage Odor: None/Absent Tissue Surrounding Wound: Intact Wound General Appearance: Open to air, Clean/Dry Wound Comment #1 Sacral stage II Pressure ulcer- RESOLVED. Recommendation -Sacral stage II pressure ulcer -resolved. Cleanse with soap and water , apply CALAZIME CREAM , BID and PRN if soiled/ dislodged for skin management and maintenance. -Keep clean and dry -Low air loss overlay SPR -Turn and reposition -Optimize nutrition -Offload both heels -Assess and f/u accordingly for any changes MELISSA BEAUCHAMP Oct 16, 2016 11:19
--- NOTE | 2016-10-16 11:58 | Pulmonology Progress Note ---
Assessment/Plan Problems: (1) Respiratory failure (2) COPD exacerbation (3) Emphysema of lung Assessment/Plan improving tolerating diet weaning trials check eletrolytes doing better stable for transfer to a subacute facility awaiting transfer to a subacute facility. Subjective ROS Limited/Unobtainable: No Constitutional: Reports: no symptoms HEENT: Repors: no symptoms Allergies: Coded Allergies: No Known Allergies (Unverified , 06/17/16) Objective Last 24 Hour Vital Signs Date Time Temp Pulse Resp B/P Pulse Ox O2 Delivery O2 Flow Rate FiO2 10/16/16 11:12 101 16 40 10/16/16 09:11 84 16 40 10/16/16 08:00 40 10/16/16 08:00 96.9 92 16 105/72 100 Mechanical Ventilator 40 10/16/16 08:00 77 10/16/16 06:55 86 16 40 10/16/16 05:13 87 16 40 10/16/16 04:00 75 10/16/16 04:00 98.2 83 21 90/56 100 Mechanical Ventilator 10/16/16 04:00 40 10/16/16 02:38 81 16 40 10/16/16 01:11 85 16 40 10/16/16 00:12 78 10/16/16 00:00 40 10/16/16 00:00 97.6 83 20 120/78 100 Mechanical Ventilator 10/15/16 23:02 100 17 40 10/15/16 21:13 80 16 40 10/15/16 20:00 93 10/15/16 20:00 40 10/15/16 20:00 97.5 89 19 98/55 100 Mechanical Ventilator 10/15/16 19:18 84 16 40 10/15/16 16:11 97.5 95 21 108/73 100 Mechanical Ventilator 40 10/15/16 16:11 95 10/15/16 16:11 40 10/15/16 14:39 96 16 100 Mechanical Ventilator 40 10/15/16 14:34 96 16 40 10/15/16 14:34 96 16 100 Mechanical Ventilator 40 10/15/16 14:34 40 10/15/16 12:54 89 16 40 10/15/16 12:00 93 10/15/16 12:00 40 10/15/16 12:00 97.6 93 19 112/70 100 Mechanical Ventilator 40 Intake and Output 10/15/16 10/16/16 19:00 07:00 Intake Total 920 ml 800 ml Output Total 2100 ml Balance -1180 ml 800 ml Free Water 200 ml 200 ml Tube Feeding 720 ml 600 ml Output Urine Total 2100 ml # Bowel Movements 2 Objective Status: awake HEENT: atraumatic, normocephalic Lungs: clear, decreased breath sounds Heart: HR/BP stable Abdomen: soft, non-tender Extremities: no C/C/E, edema Current Medications Medications (Trade) Dose Ordered Sig/Shraddha Route PRN Reason Start Time Stop Time Status Last Admin Dose Admin Acetaminophen (Tylenol) 650 mg Q4H PRN ORAL fever>100.5 10/05/16 11:30 11/04/16 11:29 Ceftazidime/ Sodium Chloride (Fortaz/Sodium Chloride) 110 ml @ 220 mls/hr Q8HR IV 10/10/16 14:00 10/16/16 13:59 10/16/16 06:30 Dextrose (Dextrose 50%) STAT PRN IV Hypoglycemia 10/05/16 11:30 11/04/16 11:29 Insulin Aspart (NovoLOG) start when feeding started Q6HR SUBQ 10/05/16 12:00 11/04/16 11:59 10/13/16 23:45 Lorazepam (Ativan 2mg/ml 1ml) 1 mg Q4H PRN IV For Anxiety 10/13/16 05:00 10/20/16 04:59 10/15/16 20:13 Ondansetron HCl (Zofran) 4 mg Q6H PRN IVP Nausea & Vomiting 10/05/16 11:30 11/04/16 11:29 Pantoprazole (Protonix) 40 mg DAILY IVP 10/06/16 09:00 11/05/16 08:59 10/16/16 09:37 Polyethylene Glycol 17 gm 17 gm DAILYPRN PRN ORAL Constipation 10/05/16 11:30 11/04/16 11:29 REN WRIGHT Oct 16, 2016 11:58
[2016-10-16 12:00] VITALS: BP 97/70
--- NOTE | 2016-10-16 13:29 | Internal Med Progress Note ---
Subjective Date of Service: Oct 16, 2016 Physician Name Tadeo Verdin Attending Physician Steve Rader MD Current Medications Medications (Trade) Dose Ordered Sig/Shraddha Route PRN Reason Start Time Stop Time Status Last Admin Dose Admin Acetaminophen (Tylenol) 650 mg Q4H PRN ORAL fever>100.5 10/05/16 11:30 11/04/16 11:29 Ceftazidime/ Sodium Chloride (Fortaz/Sodium Chloride) 110 ml @ 220 mls/hr Q8HR IV 10/10/16 14:00 10/16/16 13:59 10/16/16 06:30 Dextrose (Dextrose 50%) STAT PRN IV Hypoglycemia 10/05/16 11:30 11/04/16 11:29 Insulin Aspart (NovoLOG) start when feeding started Q6HR SUBQ 10/05/16 12:00 11/04/16 11:59 10/16/16 12:09 Lorazepam (Ativan 2mg/ml 1ml) 1 mg Q4H PRN IV For Anxiety 10/13/16 05:00 10/20/16 04:59 10/15/16 20:13 Ondansetron HCl (Zofran) 4 mg Q6H PRN IVP Nausea & Vomiting 10/05/16 11:30 11/04/16 11:29 Pantoprazole (Protonix) 40 mg DAILY IVP 10/06/16 09:00 11/05/16 08:59 10/16/16 09:37 Polyethylene Glycol 17 gm 17 gm DAILYPRN PRN ORAL Constipation 10/05/16 11:30 11/04/16 11:29 Allergies: Coded Allergies: No Known Allergies (Unverified , 06/17/16) ROS Limited/Unobtainable: Yes Subjective Late entry: Computer down 10/15/16. 66 YO M admitted with respiratory failure. JORDAN. Intubated and sedated. Await transfer to [facility]. Cover for Int Med-Dr Rader. Objective Last Vital Signs Date Time Temp Pulse Resp B/P Pulse Ox O2 Delivery O2 Flow Rate FiO2 10/16/16 12:52 99 16 40 10/16/16 12:00 96.2 97/70 100 Mechanical Ventilator 10/13/16 13:08 14.0 Intake and Output 10/15/16 10/16/16 19:00 07:00 Intake Total 920 ml 800 ml Output Total 2100 ml Balance -1180 ml 800 ml Free Water 200 ml 200 ml Tube Feeding 720 ml 600 ml Output Urine Total 2100 ml # Bowel Movements 2 Objective General Appearance: moderate distress, thin EENT: PERRL/EOMI, normal ENT inspection Neck: non-tender, normal alignment, supple Cardiovascular: normal peripheral pulses, normal rate, regular rhythm, no gallop/murmur, no JVD Respiratory/Chest: Trach; Mech Vent; trach; respiratory distress, crackles/ rales, rhonchi - bilaterally, expiratory wheezing Abdomen: non tender, soft, no organomegaly, no mass, decreased bowel sounds Extremities: normal range of motion Skin: normal pigmentation, warm/dry Assessment/Plan Problem List: (1) Lung nodule (2) DVT (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 (3) Acute respiratory failure Assessment & Plan: S/P tracheostomy 10/03/16. Cont vent per pulmonary (4) COPD exacerbation Assessment & Plan: Continue duoneb. Continue vent per pulmonary. (5) Pneumonia Assessment & Plan: continue ceftazidime and IV flagyl per ID-continue tobramycin nebs (6) Leukocytosis Assessment & Plan: Continue PO vanco and IV flagyl per ID. (7) Dysphagia Assessment & Plan: See GI consult- S/P PEG 10/04/16. Assessment/Plan Discharge Planning: snf facility when bed available-see soc work note. TADEO VERDIN Oct 16, 2016 13:29
[2016-10-16 16:00] VITALS: BP 103/73
[2016-10-16 20:00] VITALS: BP 118/78
[2016-10-16] MEDS: LORazepam Inj 2mg/ml 1ml IV PRN (20:28)
--- NOTE | 2016-10-16 20:39 | Infectious Diseases Prog Note ---
Assessment/Plan Assessment/Plan ASSESSMENT: 66 y/o male with: // COPD exacerbation - delayed SCx 4+ PSA pt has increased secretions - CXR 09/27: Lungs are hyperinflated. No new infiltrates - negative: influenza // Leukocytosis - SP ( post op, 10/01 SP steroids ) // Diarrhea x 1 resolved C Diff Neg // Febrile low grade // HIV and Hep B/C : neg // - PEG 10/04 // Acute VDRF - intubated 09/20, 10/03 SP trach // Severe pulmonary HTN / grade I diastolic dysfunction / mod TR // Pulmonary nodules // Chronic RLE DVT // Tobacco abuse // [facility] resident // Negative MRSA, VRE screens // NKDA // Full Code PLAN: - on Ceftazidime d# 14 / 14 ( 10/13 SP Jairon nebs d# 14 ) ( 10/11 SP Flagyl d# 10 ) ( 10/04 SP oral Vanco d# 3 ) ( 09/24 SP amikacin, invanz d# 5 / 5 ) ( 09/21 SP IV vancomycin d# 2 ) - taper steroids per pulm - monitor CBC, temperatures - monitor BMP - monitor CXR - vent support, wean as tolerated. Subjective Constitutional: Denies: anorexia, chills, drenching sweats, fatigue, fever, no symptoms, other Allergies: Coded Allergies: No Known Allergies (Unverified , 06/17/16) Objective Vital Signs Last 24 Hour Vital Signs Date Time Temp Pulse Resp B/P Pulse Ox O2 Delivery O2 Flow Rate FiO2 10/16/16 19:30 88 17 40 10/16/16 16:30 90 18 40 10/16/16 16:00 92 10/16/16 16:00 98.4 86 18 103/73 100 Mechanical Ventilator 40 10/16/16 16:00 40 10/16/16 15:09 93 18 40 10/16/16 12:52 99 16 40 10/16/16 12:10 40 10/16/16 12:00 96.2 97 16 97/70 100 Mechanical Ventilator 40 10/16/16 12:00 101 10/16/16 11:12 101 16 40 10/16/16 09:11 84 16 40 10/16/16 08:00 40 10/16/16 08:00 96.9 92 16 105/72 100 Mechanical Ventilator 40 10/16/16 08:00 77 10/16/16 06:55 86 16 40 10/16/16 05:13 87 16 40 10/16/16 04:00 75 10/16/16 04:00 98.2 83 21 90/56 100 Mechanical Ventilator 10/16/16 04:00 40 10/16/16 02:38 81 16 40 10/16/16 01:11 85 16 40 10/16/16 00:12 78 10/16/16 00:00 40 10/16/16 00:00 97.6 83 20 120/78 100 Mechanical Ventilator 10/15/16 23:02 100 17 40 10/15/16 21:13 80 16 40 Height (Feet): 6 Height (Inches): 2.00 Weight (Pounds): 126 HEENT: anicteric Respiratory/Chest: lungs clear Cardiovascular: regular rhythm Abdomen: no organomegaly Current Medications Medications (Trade) Dose Ordered Sig/Shraddha Route PRN Reason Start Time Stop Time Status Last Admin Dose Admin Acetaminophen (Tylenol) 650 mg Q4H PRN ORAL fever>100.5 10/05/16 11:30 11/04/16 11:29 Albuterol/ Ipratropium (DuoNeb 0.5-3(2.5)mg/3ml) 3 ml Q4H PRN HHN Shortness of Breath 10/16/16 16:45 10/21/16 16:44 Dextrose (Dextrose 50%) STAT PRN IV Hypoglycemia 10/05/16 11:30 11/04/16 11:29 Insulin Aspart (NovoLOG) start when feeding started Q6HR SUBQ 10/05/16 12:00 11/04/16 11:59 10/16/16 12:09 Lorazepam (Ativan 2mg/ml 1ml) 1 mg Q4H PRN IV For Anxiety 10/13/16 05:00 10/20/16 04:59 10/16/16 20:28 Ondansetron HCl (Zofran) 4 mg Q6H PRN IVP Nausea & Vomiting 10/05/16 11:30 11/04/16 11:29 Pantoprazole (Protonix) 40 mg DAILY IVP 10/06/16 09:00 11/05/16 08:59 10/16/16 09:37 Polyethylene Glycol (Miralax) 17 gm DAILYPRN PRN ORAL Constipation 10/05/16 11:30 11/04/16 11:29 KIMBERLEE HINKLE M.D. Oct 16, 2016 20:39
--- NOTE | 2016-10-16 22:49 | General Progress Note ---
Assessment/Plan Assessment/Plan Assessment - abnormal LFT - resolved - loose stools - Leukocytosis - resolving - COPD - respiratory failure - s/p trach and PEG - dysphagia - OB (+) - possibly due to bleeding at time of PEG or Trach. Need to repeat in few weeks. Recommendations - check C Diff --> neg - follow LFT periodically - elevate HOB - GT care - repeat stool OB in 2-3 weeks Subjective Allergies: Coded Allergies: No Known Allergies (Unverified , 06/17/16) Subjective above noted tolerating TF comfortable no events overnight Objective Last 24 Hour Vital Signs Date Time Temp Pulse Resp B/P Pulse Ox O2 Delivery O2 Flow Rate FiO2 10/16/16 21:12 91 18 40 10/16/16 19:30 88 17 40 10/16/16 16:30 90 18 40 10/16/16 16:00 92 10/16/16 16:00 98.4 86 18 103/73 100 Mechanical Ventilator 40 10/16/16 16:00 40 10/16/16 15:09 93 18 40 10/16/16 12:52 99 16 40 10/16/16 12:10 40 10/16/16 12:00 96.2 97 16 97/70 100 Mechanical Ventilator 40 10/16/16 12:00 101 10/16/16 11:12 101 16 40 10/16/16 09:11 84 16 40 10/16/16 08:00 40 10/16/16 08:00 96.9 92 16 105/72 100 Mechanical Ventilator 40 10/16/16 08:00 77 10/16/16 06:55 86 16 40 10/16/16 05:13 87 16 40 10/16/16 04:00 75 10/16/16 04:00 98.2 83 21 90/56 100 Mechanical Ventilator 10/16/16 04:00 40 10/16/16 02:38 81 16 40 10/16/16 01:11 85 16 40 10/16/16 00:12 78 10/16/16 00:00 40 10/16/16 00:00 97.6 83 20 120/78 100 Mechanical Ventilator 10/15/16 23:02 100 17 40 Intake and Output 10/15/16 10/16/16 19:00 07:00 Intake Total 920 ml 800 ml Output Total 2100 ml Balance -1180 ml 800 ml Free Water 200 ml 200 ml Tube Feeding 720 ml 600 ml Output Urine Total 2100 ml # Bowel Movements 2 Height (Feet): 6 Height (Inches): 2.00 Weight (Pounds): 126 Objective Elderly AA man NCAT (+) trach Coarse BS RRR soft NT abdomen, (+) GT responsive ROSEMARY BURROUGHS Oct 16, 2016 22:49
[2016-10-17] VITALS: BP 112/75
[2016-10-17 04:00] VITALS: BP 105/72
[2016-10-17 05:10] LABS: MEAN CORPUSCULAR HEMOGLOBIN 28.4 PG (27.0-31.0); MEAN CORPUSCULAR HGB CONC 29.9 G/DL (32.0-36.0); MEAN CORPUSCULAR VOLUME 95 FL (80-99); MEAN PLATELET VOLUME 5.2 FL (6.5-10.1); PLATELET COUNT 376 K/UL (150-450); RED BLOOD COUNT 2.99 M/UL (4.70-6.10); RED CELL DISTRIBUTION WIDTH 16.8 % (11.6-14.8); WHITE BLOOD COUNT 2.9 K/UL (4.8-10.8)
[2016-10-17 05:23] LABS: ANION GAP 11 (5-15); CALCIUM 8.6 mg/dL (8.6-10.2); CARBON DIOXIDE 33 mEQ/L (20-30); CHLORIDE 96 mEQ/L (98-107); CREATININE 0.5 mg/dL (0.7-1.2); GLOMERULAR FILTRATION RATE > 60 mL/min (>60); HEMOLYSIS 4; POTASSIUM 5.2 mEQ/L (3.4-4.9); SODIUM 140 mEQ/L (135-145)
[2016-10-17] MEDS: NovoLOG Insulin Flexpen SUBQ SCH ×4 (05:42→17:29)
[2016-10-17 08:00] VITALS: BP 95/63
[2016-10-17 08:24] LABS: ANISOCYTOSIS 1+; BAND NEUTROPHILS % (MANUAL) 0 % (0-8); BASOPHILS % (MANUAL) 1 % (0-2); EOSINOPHILS % (MANUAL) 2 % (0-3); HYPOCHROMASIA 2+; LYMPHOCYTES % (MANUAL) 30 % (20-45); NEUTROPHILS % (MANUAL) 54 % (45-75); PLATELET ESTIMATE ADEQUATE; PLATELET MORPHOLOGY NORMAL; TOTAL CELLS COUNTED 100
[2016-10-17] MEDS: Pantoprazole Inj IVP SCH (08:42)
[2016-10-17] MEDS: DuoNeb 0.5-3(2.5)mg/3ml neb HHN PRN ×2 (09:43→19:01)
--- NOTE | 2016-10-17 10:57 | Pulmonology Progress Note ---
Assessment/Plan Problems: (1) Respiratory failure (2) COPD exacerbation (3) Emphysema of lung Assessment/Plan improving tolerating diet weaning trials stable for transfer to a subacute facility awaiting transfer to a subacute facility. Subjective ROS Limited/Unobtainable: No Constitutional: Reports: no symptoms HEENT: Repors: no symptoms Respiratory: Reports: no symptoms Allergies: Coded Allergies: No Known Allergies (Unverified , 06/17/16) Objective Last 24 Hour Vital Signs Date Time Temp Pulse Resp B/P Pulse Ox O2 Delivery O2 Flow Rate FiO2 10/17/16 09:43 89 19 100 Mechanical Ventilator 40 10/17/16 09:43 40 10/17/16 08:32 94 18 40 10/17/16 08:00 83 10/17/16 08:00 40 10/17/16 08:00 97.0 84 20 95/63 100 Mechanical Ventilator 40 10/17/16 06:42 90 18 40 10/17/16 05:30 93 18 40 10/17/16 04:00 97.9 92 19 105/72 100 Mechanical Ventilator 40 10/17/16 04:00 90 10/17/16 04:00 40 10/17/16 03:18 91 18 40 10/17/16 01:10 90 17 40 10/17/16 00:00 40 10/17/16 00:00 97.9 99 19 112/75 100 Mechanical Ventilator 10/16/16 23:49 89 10/16/16 23:03 100 18 40 10/16/16 21:12 91 18 40 10/16/16 20:00 98.4 88 18 118/78 100 Mechanical Ventilator 40 10/16/16 20:00 88 10/16/16 20:00 40 10/16/16 19:30 88 17 40 10/16/16 16:30 90 18 40 10/16/16 16:00 92 10/16/16 16:00 98.4 86 18 103/73 100 Mechanical Ventilator 40 10/16/16 16:00 40 10/16/16 15:09 93 18 40 10/16/16 12:52 99 16 40 10/16/16 12:10 40 10/16/16 12:00 96.2 97 16 97/70 100 Mechanical Ventilator 40 10/16/16 12:00 101 10/16/16 11:12 101 16 40 Intake and Output 10/16/16 10/17/16 19:00 07:00 Intake Total 870 ml 760 ml Output Total 350 ml 1200 ml Balance 520 ml -440 ml Free Water 150 ml 100 ml Tube Feeding 720 ml 660 ml Output Urine Total 350 ml 1200 ml Objective Status: awake HEENT: atraumatic, normocephalic Lungs: clear, decreased breath sounds Heart: HR/BP stable Abdomen: soft, non-tender Extremities: no C/C/E, edema Laboratory Tests 10/17/16 03:25: White Blood Count 2.9L, Red Blood Count 2.99L, Hemoglobin 8.5L, Hematocrit 28.4L , Mean Corpuscular Volume 95, Mean Corpuscular Hemoglobin 28.4, Mean Corpuscular Hemoglobin Concent 29.9L, Red Cell Distribution Width 16.8H, Platelet Count 376, Mean Platelet Volume 5.2L, Neutrophils (%) (Auto) , Lymphocytes (%) (Auto) , Monocytes (%) (Auto) , Eosinophils (%) (Auto) , Basophils (%) (Auto) , Differential Total Cells Counted 100, Neutrophils % ( Manual) 54, Lymphocytes % (Manual) 30, Monocytes % (Manual) 13H, Eosinophils % ( Manual) 2, Basophils % (Manual) 1, Band Neutrophils 0, Platelet Estimate Adequate, Platelet Morphology Normal, Hypochromasia 2+, Anisocytosis 1+, Sodium Level 140, Potassium Level 5.2H, Chloride Level 96L, Carbon Dioxide Level 33H, Anion Gap 11, Blood Urea Nitrogen 9, Creatinine 0.5L, Estimat Glomerular Filtration Rate > 60, Glucose Level 65L, Calcium Level 8.6 Current Medications Medications (Trade) Dose Ordered Sig/Shraddha Route PRN Reason Start Time Stop Time Status Last Admin Dose Admin Acetaminophen (Tylenol) 650 mg Q4H PRN ORAL fever>100.5 10/05/16 11:30 11/04/16 11:29 Albuterol/ Ipratropium (DuoNeb 0.5-3(2.5)mg/3ml) 3 ml Q4H PRN HHN Shortness of Breath 10/16/16 16:45 10/21/16 16:44 10/17/16 09:43 Dextrose (Dextrose 50%) STAT PRN IV Hypoglycemia 10/05/16 11:30 11/04/16 11:29 Insulin Aspart (NovoLOG) start when feeding started Q6HR SUBQ 10/05/16 12:00 11/04/16 11:59 10/16/16 12:09 Lorazepam (Ativan 2mg/ml 1ml) 1 mg Q4H PRN IV For Anxiety 10/13/16 05:00 10/20/16 04:59 10/16/16 20:28 Ondansetron HCl (Zofran) 4 mg Q6H PRN IVP Nausea & Vomiting 10/05/16 11:30 11/04/16 11:29 Pantoprazole (Protonix) 40 mg DAILY IVP 10/06/16 09:00 11/05/16 08:59 10/17/16 08:42 Polyethylene Glycol (Miralax) 17 gm DAILYPRN PRN ORAL Constipation 10/05/16 11:30 11/04/16 11:29 REN WRGIHT Oct 17, 2016 10:57
[2016-10-17] MEDS ORDERED: Sodium Polystyrene Sulfonate 15gm Powder GT ONE (11:30)
[2016-10-17 12:27] VITALS: BP 99/69
--- NOTE | 2016-10-17 15:29 | Infectious Diseases Prog Note ---
Assessment/Plan Assessment/Plan ASSESSMENT: 66 y/o male with: // COPD exacerbation - delayed SCx 4+ PSA pt has increased secretions - CXR 09/27: Lungs are hyperinflated. No new infiltrates - negative: influenza // Leukocytosis - SP ( post op, 10/01 SP steroids ) now leukopenia // Diarrhea x 1 resolved C Diff Neg // Febrile low grade // HIV and Hep B/C : neg // - PEG 10/04 // Acute VDRF - intubated 09/20, 10/03 SP trach // Severe pulmonary HTN / grade I diastolic dysfunction / mod TR // Pulmonary nodules // Chronic RLE DVT // Tobacco abuse // [facility] resident // Negative MRSA, VRE screens // NKDA // Full Code PLAN: - Monitor pt off of AB Rx ( 10/17 SP Ceftazidime d# 14 ) ( 10/13 SP Jairon nebs d# 14 ) ( 10/11 SP Flagyl d# 10 ) ( 10/04 SP oral Vanco d# 3 ) ( 09/24 SP amikacin, invanz d# 5 / 5 ) ( 09/21 SP IV vancomycin d# 2 ) - taper steroids per pulm - monitor CBC, temperatures - monitor BMP - monitor CXR - vent support, wean as tolerated. Subjective Constitutional: Denies: anorexia, chills, drenching sweats, fatigue, fever, no symptoms, other Allergies: Coded Allergies: No Known Allergies (Unverified , 06/17/16) Objective Vital Signs Last 24 Hour Vital Signs Date Time Temp Pulse Resp B/P Pulse Ox O2 Delivery O2 Flow Rate FiO2 10/17/16 14:49 90 19 40 10/17/16 12:46 86 17 40 10/17/16 12:27 96.4 85 18 99/69 100 Mechanical Ventilator 40 10/17/16 12:00 40 10/17/16 11:04 80 17 40 10/17/16 09:43 89 19 100 Mechanical Ventilator 40 10/17/16 09:43 40 10/17/16 08:32 94 18 40 10/17/16 08:00 83 10/17/16 08:00 40 10/17/16 08:00 97.0 84 20 95/63 100 Mechanical Ventilator 40 10/17/16 06:42 90 18 40 10/17/16 05:30 93 18 40 10/17/16 04:00 97.9 92 19 105/72 100 Mechanical Ventilator 40 10/17/16 04:00 90 10/17/16 04:00 40 10/17/16 03:18 91 18 40 10/17/16 01:10 90 17 40 10/17/16 00:00 40 10/17/16 00:00 97.9 99 19 112/75 100 Mechanical Ventilator 10/16/16 23:49 89 10/16/16 23:03 100 18 40 10/16/16 21:12 91 18 40 10/16/16 20:00 98.4 88 18 118/78 100 Mechanical Ventilator 40 10/16/16 20:00 88 10/16/16 20:00 40 10/16/16 19:30 88 17 40 10/16/16 16:30 90 18 40 10/16/16 16:00 92 10/16/16 16:00 98.4 86 18 103/73 100 Mechanical Ventilator 40 10/16/16 16:00 40 Height (Feet): 6 Height (Inches): 2.00 Weight (Pounds): 126 HEENT: atraumatic Respiratory/Chest: lungs clear Cardiovascular: normal rate Abdomen: no organomegaly Laboratory Tests Test 10/17/16 03:25 White Blood Count 2.9 K/UL (4.8-10.8) L Red Blood Count 2.99 M/UL (4.70-6.10) L Hemoglobin 8.5 G/DL (14.2-18.0) L Hematocrit 28.4 % (42.0-52.0) L Mean Corpuscular Volume 95 FL (80-99) Mean Corpuscular Hemoglobin 28.4 PG (27.0-31.0) Mean Corpuscular Hemoglobin Concent 29.9 G/DL (32.0-36.0) L Red Cell Distribution Width 16.8 % (11.6-14.8) H Platelet Count 376 K/UL (150-450) Mean Platelet Volume 5.2 FL (6.5-10.1) L Neutrophils (%) (Auto) % (45.0-75.0) Lymphocytes (%) (Auto) % (20.0-45.0) Monocytes (%) (Auto) % (1.0-10.0) Eosinophils (%) (Auto) % (0.0-3.0) Basophils (%) (Auto) % (0.0-2.0) Differential Total Cells Counted 100 Neutrophils % (Manual) 54 % (45-75) Lymphocytes % (Manual) 30 % (20-45) Monocytes % (Manual) 13 % (1-10) H Eosinophils % (Manual) 2 % (0-3) Basophils % (Manual) 1 % (0-2) Band Neutrophils 0 % (0-8) Platelet Estimate Adequate Platelet Morphology Normal Hypochromasia 2+ Anisocytosis 1+ Sodium Level 140 mEQ/L (135-145) Potassium Level 5.2 mEQ/L (3.4-4.9) H Chloride Level 96 mEQ/L (98-107) L Carbon Dioxide Level 33 mEQ/L (20-30) H Anion Gap 11 (5-15) Blood Urea Nitrogen 9 mg/dL (7-23) Creatinine 0.5 mg/dL (0.7-1.2) L Estimat Glomerular Filtration Rate > 60 mL/min (>60) Glucose Level 65 mg/dL (74-106) L Calcium Level 8.6 mg/dL (8.6-10.2) Current Medications Medications (Trade) Dose Ordered Sig/Shraddha Route PRN Reason Start Time Stop Time Status Last Admin Dose Admin Acetaminophen (Tylenol) 650 mg Q4H PRN ORAL fever>100.5 10/05/16 11:30 11/04/16 11:29 Albuterol/ Ipratropium (DuoNeb 0.5-3(2.5)mg/3ml) 3 ml Q4H PRN HHN Shortness of Breath 10/16/16 16:45 10/21/16 16:44 10/17/16 09:43 Dextrose (Dextrose 50%) STAT PRN IV Hypoglycemia 10/05/16 11:30 11/04/16 11:29 Insulin Aspart (NovoLOG) start when feeding started Q6HR SUBQ 10/05/16 12:00 11/04/16 11:59 10/16/16 12:09 Lorazepam (Ativan 2mg/ml 1ml) 1 mg Q4H PRN IV For Anxiety 10/13/16 05:00 10/20/16 04:59 10/16/16 20:28 Ondansetron HCl (Zofran) 4 mg Q6H PRN IVP Nausea & Vomiting 10/05/16 11:30 11/04/16 11:29 Pantoprazole (Protonix) 40 mg DAILY IVP 10/06/16 09:00 11/05/16 08:59 10/17/16 08:42 Polyethylene Glycol (Miralax) 17 gm DAILYPRN PRN ORAL Constipation 10/05/16 11:30 11/04/16 11:29 KIMBERLEE HINKLE M.D. Oct 17, 2016 15:29
[2016-10-17 16:09] VITALS: BP 94/59
--- NOTE | 2016-10-17 19:33 | Internal Med Progress Note ---
Subjective Date of Service: Oct 17, 2016 Physician Name Tadeo Verdin Attending Physician Steve Rader MD Current Medications Medications (Trade) Dose Ordered Sig/Shraddha Route PRN Reason Start Time Stop Time Status Last Admin Dose Admin Acetaminophen (Tylenol) 650 mg Q4H PRN ORAL fever>100.5 10/05/16 11:30 11/04/16 11:29 Albuterol/ Ipratropium (DuoNeb 0.5-3(2.5)mg/3ml) 3 ml Q4H PRN HHN Shortness of Breath 10/16/16 16:45 10/21/16 16:44 10/17/16 19:01 Dextrose (Dextrose 50%) STAT PRN IV Hypoglycemia 10/05/16 11:30 11/04/16 11:29 Insulin Aspart (NovoLOG) start when feeding started Q6HR SUBQ 10/05/16 12:00 11/04/16 11:59 10/17/16 17:29 Lorazepam (Ativan 2mg/ml 1ml) 1 mg Q4H PRN IV For Anxiety 10/13/16 05:00 10/20/16 04:59 10/16/16 20:28 Ondansetron HCl (Zofran) 4 mg Q6H PRN IVP Nausea & Vomiting 10/05/16 11:30 11/04/16 11:29 Pantoprazole (Protonix) 40 mg DAILY IVP 10/06/16 09:00 11/05/16 08:59 10/17/16 08:42 Polyethylene Glycol (Miralax) 17 gm DAILYPRN PRN ORAL Constipation 10/05/16 11:30 11/04/16 11:29 Allergies: Coded Allergies: No Known Allergies (Unverified , 06/17/16) ROS Limited/Unobtainable: Yes Subjective 66 YO M admitted with respiratory failure. JORADN. Intubated and sedated. Await transfer to [facility]. Cover for Int Med-Dr Rader. Objective Last Vital Signs Date Time Temp Pulse Resp B/P Pulse Ox O2 Delivery O2 Flow Rate FiO2 10/17/16 19:09 110 20 100 Mechanical Ventilator 40 10/17/16 16:09 96.1 94/59 10/13/16 13:08 14.0 Laboratory Tests Test 10/17/16 03:25 White Blood Count 2.9 K/UL (4.8-10.8) L Red Blood Count 2.99 M/UL (4.70-6.10) L Hemoglobin 8.5 G/DL (14.2-18.0) L Hematocrit 28.4 % (42.0-52.0) L Mean Corpuscular Volume 95 FL (80-99) Mean Corpuscular Hemoglobin 28.4 PG (27.0-31.0) Mean Corpuscular Hemoglobin Concent 29.9 G/DL (32.0-36.0) L Red Cell Distribution Width 16.8 % (11.6-14.8) H Platelet Count 376 K/UL (150-450) Mean Platelet Volume 5.2 FL (6.5-10.1) L Neutrophils (%) (Auto) % (45.0-75.0) Lymphocytes (%) (Auto) % (20.0-45.0) Monocytes (%) (Auto) % (1.0-10.0) Eosinophils (%) (Auto) % (0.0-3.0) Basophils (%) (Auto) % (0.0-2.0) Differential Total Cells Counted 100 Neutrophils % (Manual) 54 % (45-75) Lymphocytes % (Manual) 30 % (20-45) Monocytes % (Manual) 13 % (1-10) H Eosinophils % (Manual) 2 % (0-3) Basophils % (Manual) 1 % (0-2) Band Neutrophils 0 % (0-8) Platelet Estimate Adequate Platelet Morphology Normal Hypochromasia 2+ Anisocytosis 1+ Sodium Level 140 mEQ/L (135-145) Potassium Level 5.2 mEQ/L (3.4-4.9) H Chloride Level 96 mEQ/L (98-107) L Carbon Dioxide Level 33 mEQ/L (20-30) H Anion Gap 11 (5-15) Blood Urea Nitrogen 9 mg/dL (7-23) Creatinine 0.5 mg/dL (0.7-1.2) L Estimat Glomerular Filtration Rate > 60 mL/min (>60) Glucose Level 65 mg/dL (74-106) L Calcium Level 8.6 mg/dL (8.6-10.2) Intake and Output 10/16/16 10/17/16 19:00 07:00 Intake Total 870 ml 760 ml Output Total 350 ml 1200 ml Balance 520 ml -440 ml Free Water 150 ml 100 ml Tube Feeding 720 ml 660 ml Output Urine Total 350 ml 1200 ml Objective General Appearance: moderate distress, thin EENT: PERRL/EOMI, normal ENT inspection Neck: non-tender, normal alignment, supple Cardiovascular: normal peripheral pulses, normal rate, regular rhythm, no gallop/murmur, no JVD Respiratory/Chest: Trach; Mech Vent; trach; respiratory distress, crackles/ rales, rhonchi - bilaterally, expiratory wheezing Abdomen: non tender, soft, no organomegaly, no mass, decreased bowel sounds Extremities: normal range of motion Skin: normal pigmentation, warm/dry Assessment/Plan Problem List: (1) Lung nodule (2) DVT (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 (3) Acute respiratory failure Assessment & Plan: S/P tracheostomy 10/03/16. Cont vent per pulmonary (4) COPD exacerbation Assessment & Plan: Continue duoneb. Continue vent per pulmonary. (5) Pneumonia Assessment & Plan: continue ceftazidime and IV flagyl per ID-continue tobramycin nebs (6) Leukocytosis Assessment & Plan: Continue PO vanco and IV flagyl per ID. (7) Dysphagia Assessment & Plan: See GI consult- S/P PEG 10/04/16. Status: stable Assessment/Plan Discharge Planning: [facility] facility when bed available-see soc work note. TADEO VERDIN Oct 17, 2016 19:33
[2016-10-17 20:00] VITALS: BP 107/72
--- NOTE | 2016-10-17 22:06 | General Progress Note ---
Assessment/Plan Assessment/Plan Assessment - abnormal LFT - resolved - loose stools - COPD - respiratory failure - s/p trach and PEG - dysphagia - OB (+) - possibly due to bleeding at time of PEG or Trach. Need to repeat in few weeks. - Anemia Recommendations - check C Diff --> neg - follow LFT periodically - elevate HOB - GT care - repeat stool OB in 2-3 weeks - ? candidate for colonoscopy Subjective Allergies: Coded Allergies: No Known Allergies (Unverified , 06/17/16) Subjective above noted tolerating TF comfortable no events overnight Objective Last 24 Hour Vital Signs Date Time Temp Pulse Resp B/P Pulse Ox O2 Delivery O2 Flow Rate FiO2 10/17/16 21:00 83 16 40 10/17/16 20:00 98.0 89 20 107/72 100 Mechanical Ventilator 40 10/17/16 19:09 110 20 100 Mechanical Ventilator 40 10/17/16 18:59 95 21 40 10/17/16 18:59 40 10/17/16 18:59 95 21 100 Mechanical Ventilator 40 10/17/16 16:38 74 16 40 10/17/16 16:12 40 10/17/16 16:09 96.1 68 20 94/59 100 Mechanical Ventilator 40 10/17/16 16:00 74 10/17/16 14:49 90 19 40 10/17/16 12:46 86 17 40 10/17/16 12:27 96.4 85 18 99/69 100 Mechanical Ventilator 40 10/17/16 12:00 40 10/17/16 12:00 89 10/17/16 11:04 80 17 40 10/17/16 09:43 89 19 100 Mechanical Ventilator 40 10/17/16 09:43 40 10/17/16 08:32 94 18 40 10/17/16 08:00 83 10/17/16 08:00 40 10/17/16 08:00 97.0 84 20 95/63 100 Mechanical Ventilator 40 10/17/16 06:42 90 18 40 10/17/16 05:30 93 18 40 10/17/16 04:00 97.9 92 19 105/72 100 Mechanical Ventilator 40 10/17/16 04:00 90 10/17/16 04:00 40 10/17/16 03:18 91 18 40 10/17/16 01:10 90 17 40 10/17/16 00:00 40 10/17/16 00:00 97.9 99 19 112/75 100 Mechanical Ventilator 10/16/16 23:49 89 10/16/16 23:03 100 18 40 Intake and Output 10/16/16 10/17/16 19:00 07:00 Intake Total 870 ml 760 ml Output Total 350 ml 1200 ml Balance 520 ml -440 ml Free Water 150 ml 100 ml Tube Feeding 720 ml 660 ml Output Urine Total 350 ml 1200 ml Laboratory Tests 10/17/16 03:25: White Blood Count 2.9L, Red Blood Count 2.99L, Hemoglobin 8.5L, Hematocrit 28.4L , Mean Corpuscular Volume 95, Mean Corpuscular Hemoglobin 28.4, Mean Corpuscular Hemoglobin Concent 29.9L, Red Cell Distribution Width 16.8H, Platelet Count 376, Mean Platelet Volume 5.2L, Neutrophils (%) (Auto) , Lymphocytes (%) (Auto) , Monocytes (%) (Auto) , Eosinophils (%) (Auto) , Basophils (%) (Auto) , Differential Total Cells Counted 100, Neutrophils % ( Manual) 54, Lymphocytes % (Manual) 30, Monocytes % (Manual) 13H, Eosinophils % ( Manual) 2, Basophils % (Manual) 1, Band Neutrophils 0, Platelet Estimate Adequate, Platelet Morphology Normal, Hypochromasia 2+, Anisocytosis 1+, Sodium Level 140, Potassium Level 5.2H, Chloride Level 96L, Carbon Dioxide Level 33H, Anion Gap 11, Blood Urea Nitrogen 9, Creatinine 0.5L, Estimat Glomerular Filtration Rate > 60, Glucose Level 65L, Calcium Level 8.6 Height (Feet): 6 Height (Inches): 2.00 Weight (Pounds): 126 Objective Elderly AA man NCAT (+) trach Coarse BS RRR soft NT abdomen, (+) GT responsive ROSEMARY BURROUGHS Oct 17, 2016 22:06
[2016-10-18] VITALS: BP 119/80
[2016-10-18] MEDS: NovoLOG Insulin Flexpen SUBQ SCH ×4 (00:15→18:00)
[2016-10-18 04:00] VITALS: BP 131/89
[2016-10-18 06:01] LABS: BASOPHILS % (AUTO) 1.2 % (0.0-2.0); EOSINOPHILS % (AUTO) 2.4 % (0.0-3.0); LYMPHOCYTES % (AUTO) 23.2 % (20.0-45.0); MEAN CORPUSCULAR HEMOGLOBIN 27.7 PG (27.0-31.0); MEAN CORPUSCULAR HGB CONC 29.9 G/DL (32.0-36.0); MEAN CORPUSCULAR VOLUME 93 FL (80-99); MEAN PLATELET VOLUME 6.3 FL (6.5-10.1); MONOCYTES % (AUTO) 7.6 % (1.0-10.0); NEUTROPHILS % (AUTO) 65.7 % (45.0-75.0); PLATELET COUNT 490 K/UL (150-450); RED BLOOD COUNT 3.52 M/UL (4.70-6.10); RED CELL DISTRIBUTION WIDTH 16.3 % (11.6-14.8); WHITE BLOOD COUNT 5.2 K/UL (4.8-10.8)
[2016-10-18 06:27] LABS: ALANINE AMINOTRANSFERASE 15 U/L (3-41); ALBUMIN/GLOBULIN RATIO 0.7 (1.0-2.7); ANION GAP 5 (5-15); ASPARTATE AMINO TRANSFERASE 17 U/L (5-40); CARBON DIOXIDE 37 mEQ/L (20-30); CHLORIDE 98 mEQ/L (98-107); CREATININE 0.4 mg/dL (0.7-1.2); GLOMERULAR FILTRATION RATE > 60 mL/min (>60); HEMOLYSIS 1; PHOSPHORUS 3.6 mg/dL (2.5-4.8); POTASSIUM 4.3 mEQ/L (3.4-4.9); SODIUM 140 mEQ/L (135-145); TOTAL PROTEIN 6.9 g/dL (6.6-8.7)
[2016-10-18] MEDS: DuoNeb 0.5-3(2.5)mg/3ml neb HHN PRN (06:59)
[2016-10-18 08:00] VITALS: BP 102/63
[2016-10-18] MEDS: Pantoprazole Inj IVP SCH (08:16)
[2016-10-18] MEDS ORDERED: Sterile Water Irrig 1000ml IRRIG ONE (10:44)
[2016-10-18] MEDS ORDERED: NS Irrig 1000ml ONE (10:44)
[2016-10-18] MEDS ORDERED: NS 275ml ONE (10:44)
--- NOTE | 2016-10-18 11:00 | Pulmonology Progress Note ---
Assessment/Plan Problems: (1) Respiratory failure (2) COPD exacerbation (3) Emphysema of lung Assessment/Plan improving tolerating diet weaning trials stable for transfer to a subacute facility awaiting transfer to a subacute facility. Subjective ROS Limited/Unobtainable: No Constitutional: Reports: no symptoms HEENT: Repors: no symptoms Respiratory: Reports: no symptoms Cardiovascular: Reports: no symptoms Allergies: Coded Allergies: No Known Allergies (Unverified , 06/17/16) Objective Last 24 Hour Vital Signs Date Time Temp Pulse Resp B/P Pulse Ox O2 Delivery O2 Flow Rate FiO2 10/18/16 10:40 85 16 40 10/18/16 08:36 89 17 40 10/18/16 08:00 99.1 84 20 102/63 100 Mechanical Ventilator 40 10/18/16 07:00 88 16 100 Mechanical Ventilator 40 10/18/16 06:59 95 15 40 10/18/16 06:51 40 10/18/16 06:50 90 16 100 Mechanical Ventilator 40 10/18/16 05:08 99 19 40 10/18/16 04:03 91 10/18/16 04:00 10.0 40 10/18/16 04:00 98.0 94 20 131/89 100 Mechanical Ventilator 40 10/18/16 02:50 94 20 40 10/18/16 01:19 98 17 40 10/18/16 00:00 10.0 40 10/18/16 00:00 98.4 89 20 119/80 100 Mechanical Ventilator 40 10/17/16 23:44 88 10/17/16 23:07 97 20 40 10/17/16 21:00 83 16 40 10/17/16 20:00 98.0 89 20 107/72 100 Mechanical Ventilator 40 10/17/16 20:00 40 10/17/16 19:42 85 10/17/16 19:09 110 20 100 Mechanical Ventilator 40 10/17/16 18:59 95 21 40 10/17/16 18:59 40 10/17/16 18:59 95 21 100 Mechanical Ventilator 40 10/17/16 16:38 74 16 40 10/17/16 16:12 40 10/17/16 16:09 96.1 68 20 94/59 100 Mechanical Ventilator 40 10/17/16 16:00 74 10/17/16 14:49 90 19 40 10/17/16 12:46 86 17 40 10/17/16 12:27 96.4 85 18 99/69 100 Mechanical Ventilator 40 10/17/16 12:00 40 10/17/16 12:00 89 10/17/16 11:04 80 17 40 Intake and Output 10/17/16 10/18/16 19:00 07:00 Intake Total 580 ml 720 ml Output Total 1000 ml 1000 ml Balance -420 ml -280 ml Free Water 100 ml Tube Feeding 480 ml 720 ml Output Urine Total 1000 ml 1000 ml # Bowel Movements 1 1 Objective Status: awake HEENT: atraumatic, normocephalic Lungs: clear, decreased breath sounds Heart: HR/BP stable Abdomen: soft, non-tender Extremities: no C/C/E, edema Laboratory Tests 10/18/16 04:49: White Blood Count 5.2#, Red Blood Count 3.52L, Hemoglobin 9.7L, Hematocrit 32.6L , Mean Corpuscular Volume 93, Mean Corpuscular Hemoglobin 27.7, Mean Corpuscular Hemoglobin Concent 29.9L, Red Cell Distribution Width 16.3H, Platelet Count 490H, Mean Platelet Volume 6.3L, Neutrophils (%) (Auto) 65.7, Lymphocytes (%) (Auto) 23.2, Monocytes (%) (Auto) 7.6, Eosinophils (%) (Auto) 2.4, Basophils (%) (Auto) 1.2, Sodium Level 140, Potassium Level 4.3, Chloride Level 98, Carbon Dioxide Level 37H, Anion Gap 5, Blood Urea Nitrogen 9, Creatinine 0.4L, Estimat Glomerular Filtration Rate > 60, Glucose Level 102, Calcium Level 9.0, Phosphorus Level 3.6, Magnesium Level 2.0, Total Bilirubin < 0.2, Aspartate Amino Transf (AST/SGOT) 17, Alanine Aminotransferase (ALT/SGPT) 15, Alkaline Phosphatase 89, Total Protein 6.9, Albumin 2.9L, Globulin 4.0, Albumin/Globulin Ratio 0.7L Current Medications Medications (Trade) Dose Ordered Sig/Shraddha Route PRN Reason Start Time Stop Time Status Last Admin Dose Admin Acetaminophen (Tylenol) 650 mg Q4H PRN ORAL fever>100.5 10/05/16 11:30 11/04/16 11:29 Albuterol/ Ipratropium (DuoNeb 0.5-3(2.5)mg/3ml) 3 ml Q4H PRN HHN Shortness of Breath 10/16/16 16:45 10/21/16 16:44 10/18/16 06:59 Dextrose (Dextrose 50%) STAT PRN IV Hypoglycemia 10/05/16 11:30 11/04/16 11:29 Insulin Aspart (NovoLOG) start when feeding started Q6HR SUBQ 10/05/16 12:00 11/04/16 11:59 10/18/16 00:15 Lorazepam (Ativan 2mg/ml 1ml) 1 mg Q4H PRN IV For Anxiety 10/13/16 05:00 10/20/16 04:59 10/16/16 20:28 Ondansetron HCl (Zofran) 4 mg Q6H PRN IVP Nausea & Vomiting 10/05/16 11:30 11/04/16 11:29 Pantoprazole (Protonix) 40 mg DAILY IVP 10/06/16 09:00 11/05/16 08:59 10/18/16 08:16 Polyethylene Glycol (Miralax) 17 gm DAILYPRN PRN ORAL Constipation 10/05/16 11:30 11/04/16 11:29 REN WRIGHT Oct 18, 2016 11:00
[2016-10-18 12:00] VITALS: BP 101/60
[2016-10-18 16:00] VITALS: BP 109/77
--- NOTE | 2016-10-18 18:42 | General Progress Note ---
Assessment/Plan Assessment/Plan Assessment - abnormal LFT - resolved - loose stools - COPD - respiratory failure - s/p trach and PEG - dysphagia - OB (+) - possibly due to bleeding at time of PEG or Trach. Need to repeat in few weeks. - Anemia Recommendations - check C Diff --> neg - follow LFT periodically - elevate HOB - GT care - repeat stool OB in 2-3 weeks - s/p EGD this admission and recent colonoscopy at [facility] Subjective Allergies: Coded Allergies: No Known Allergies (Unverified , 06/17/16) Subjective above noted tolerating TF comfortable d/w patient re OB (+) says has had it before had a colonoscopy less than a year ago at [facility] for that indication Objective Last 24 Hour Vital Signs Date Time Temp Pulse Resp B/P Pulse Ox O2 Delivery O2 Flow Rate FiO2 10/18/16 16:52 93 18 40 10/18/16 16:00 82 10/18/16 16:00 97.3 78 20 109/77 100 Mechanical Ventilator 40 10/18/16 16:00 40 10/18/16 15:13 87 17 40 10/18/16 13:04 76 16 40 10/18/16 12:34 40 10/18/16 12:00 97.2 67 18 101/60 100 Mechanical Ventilator 40 10/18/16 12:00 71 10/18/16 10:40 85 16 40 10/18/16 08:36 89 17 40 10/18/16 08:00 86 10/18/16 08:00 99.1 84 20 102/63 100 Mechanical Ventilator 40 10/18/16 08:00 40 10/18/16 07:00 88 16 100 Mechanical Ventilator 40 10/18/16 06:59 95 15 40 10/18/16 06:51 40 10/18/16 06:50 90 16 100 Mechanical Ventilator 40 10/18/16 05:08 99 19 40 10/18/16 04:03 91 10/18/16 04:00 10.0 40 10/18/16 04:00 98.0 94 20 131/89 100 Mechanical Ventilator 40 10/18/16 02:50 94 20 40 10/18/16 01:19 98 17 40 10/18/16 00:00 10.0 40 10/18/16 00:00 98.4 89 20 119/80 100 Mechanical Ventilator 40 10/17/16 23:44 88 10/17/16 23:07 97 20 40 10/17/16 21:00 83 16 40 10/17/16 20:00 98.0 89 20 107/72 100 Mechanical Ventilator 40 10/17/16 20:00 40 10/17/16 19:42 85 10/17/16 19:09 110 20 100 Mechanical Ventilator 40 10/17/16 18:59 95 21 40 10/17/16 18:59 40 10/17/16 18:59 95 21 100 Mechanical Ventilator 40 Intake and Output 10/17/16 10/18/16 19:00 07:00 Intake Total 580 ml 720 ml Output Total 1000 ml 1000 ml Balance -420 ml -280 ml Free Water 100 ml Tube Feeding 480 ml 720 ml Output Urine Total 1000 ml 1000 ml # Bowel Movements 1 1 Laboratory Tests 10/18/16 04:49: White Blood Count 5.2#, Red Blood Count 3.52L, Hemoglobin 9.7L, Hematocrit 32.6L , Mean Corpuscular Volume 93, Mean Corpuscular Hemoglobin 27.7, Mean Corpuscular Hemoglobin Concent 29.9L, Red Cell Distribution Width 16.3H, Platelet Count 490H, Mean Platelet Volume 6.3L, Neutrophils (%) (Auto) 65.7, Lymphocytes (%) (Auto) 23.2, Monocytes (%) (Auto) 7.6, Eosinophils (%) (Auto) 2.4, Basophils (%) (Auto) 1.2, Sodium Level 140, Potassium Level 4.3, Chloride Level 98, Carbon Dioxide Level 37H, Anion Gap 5, Blood Urea Nitrogen 9, Creatinine 0.4L, Estimat Glomerular Filtration Rate > 60, Glucose Level 102, Calcium Level 9.0, Phosphorus Level 3.6, Magnesium Level 2.0, Total Bilirubin < 0.2, Aspartate Amino Transf (AST/SGOT) 17, Alanine Aminotransferase (ALT/SGPT) 15, Alkaline Phosphatase 89, Total Protein 6.9, Albumin 2.9L, Globulin 4.0, Albumin/Globulin Ratio 0.7L Height (Feet): 6 Height (Inches): 2.00 Weight (Pounds): 126 Objective Elderly AA man NCAT (+) trach Coarse BS RRR soft NT abdomen, (+) GT responsive ROSEMARY BURROUGHS Oct 18, 2016 18:42
--- NOTE | 2016-10-18 18:56 | Internal Med Progress Note ---
Subjective Date of Service: Oct 18, 2016 Physician Name Tadeo Verdin Attending Physician Steve Rader MD Current Medications Medications (Trade) Dose Ordered Sig/Shraddha Route PRN Reason Start Time Stop Time Status Last Admin Dose Admin Acetaminophen (Tylenol) 650 mg Q4H PRN ORAL fever>100.5 10/05/16 11:30 11/04/16 11:29 Albuterol/ Ipratropium (DuoNeb 0.5-3(2.5)mg/3ml) 3 ml Q4H PRN HHN Shortness of Breath 10/16/16 16:45 10/21/16 16:44 10/18/16 06:59 Dextrose (Dextrose 50%) STAT PRN IV Hypoglycemia 10/05/16 11:30 11/04/16 11:29 Insulin Aspart (NovoLOG) start when feeding started Q6HR SUBQ 10/05/16 12:00 11/04/16 11:59 10/18/16 00:15 Lorazepam (Ativan 2mg/ml 1ml) 1 mg Q4H PRN IV For Anxiety 10/13/16 05:00 10/20/16 04:59 10/16/16 20:28 Ondansetron HCl (Zofran) 4 mg Q6H PRN IVP Nausea & Vomiting 10/05/16 11:30 11/04/16 11:29 Pantoprazole (Protonix) 40 mg DAILY IVP 10/06/16 09:00 11/05/16 08:59 10/18/16 08:16 Polyethylene Glycol (Miralax) 17 gm DAILYPRN PRN ORAL Constipation 10/05/16 11:30 11/04/16 11:29 Allergies: Coded Allergies: No Known Allergies (Unverified , 06/17/16) ROS Limited/Unobtainable: Yes Subjective 66 YO M admitted with respiratory failure. JORDAN. Intubated and sedated. Await transfer to [facility]. Cover for Int Med-Dr Rader. Objective Last Vital Signs Date Time Temp Pulse Resp B/P Pulse Ox O2 Delivery O2 Flow Rate FiO2 10/18/16 16:52 93 18 40 10/18/16 16:00 97.3 109/77 100 Mechanical Ventilator 10/18/16 04:00 10.0 Laboratory Tests Test 10/18/16 04:49 White Blood Count 5.2 K/UL (4.8-10.8) # Red Blood Count 3.52 M/UL (4.70-6.10) L Hemoglobin 9.7 G/DL (14.2-18.0) L Hematocrit 32.6 % (42.0-52.0) L Mean Corpuscular Volume 93 FL (80-99) Mean Corpuscular Hemoglobin 27.7 PG (27.0-31.0) Mean Corpuscular Hemoglobin Concent 29.9 G/DL (32.0-36.0) L Red Cell Distribution Width 16.3 % (11.6-14.8) H Platelet Count 490 K/UL (150-450) H Mean Platelet Volume 6.3 FL (6.5-10.1) L Neutrophils (%) (Auto) 65.7 % (45.0-75.0) Lymphocytes (%) (Auto) 23.2 % (20.0-45.0) Monocytes (%) (Auto) 7.6 % (1.0-10.0) Eosinophils (%) (Auto) 2.4 % (0.0-3.0) Basophils (%) (Auto) 1.2 % (0.0-2.0) Sodium Level 140 mEQ/L (135-145) Potassium Level 4.3 mEQ/L (3.4-4.9) Chloride Level 98 mEQ/L (98-107) Carbon Dioxide Level 37 mEQ/L (20-30) H Anion Gap 5 (5-15) Blood Urea Nitrogen 9 mg/dL (7-23) Creatinine 0.4 mg/dL (0.7-1.2) L Estimat Glomerular Filtration Rate > 60 mL/min (>60) Glucose Level 102 mg/dL (74-106) Calcium Level 9.0 mg/dL (8.6-10.2) Phosphorus Level 3.6 mg/dL (2.5-4.8) Magnesium Level 2.0 mg/dL (1.7-2.5) Total Bilirubin < 0.2 mg/dL (0.0-1.2) Aspartate Amino Transf (AST/SGOT) 17 U/L (5-40) Alanine Aminotransferase (ALT/SGPT) 15 U/L (3-41) Alkaline Phosphatase 89 U/L (40-129) Total Protein 6.9 g/dL (6.6-8.7) Albumin 2.9 g/dL (3.5-5.2) L Globulin 4.0 g/dL Albumin/Globulin Ratio 0.7 (1.0-2.7) L Intake and Output 10/17/16 10/18/16 19:00 07:00 Intake Total 580 ml 720 ml Output Total 1000 ml 1000 ml Balance -420 ml -280 ml Free Water 100 ml Tube Feeding 480 ml 720 ml Output Urine Total 1000 ml 1000 ml # Bowel Movements 1 1 Objective General Appearance: moderate distress, thin EENT: PERRL/EOMI, normal ENT inspection Neck: non-tender, normal alignment, supple Cardiovascular: normal peripheral pulses, normal rate, regular rhythm, no gallop/murmur, no JVD Respiratory/Chest: Trach; Mech Vent; trach; respiratory distress, crackles/ rales, rhonchi - bilaterally, expiratory wheezing Abdomen: non tender, soft, no organomegaly, no mass, decreased bowel sounds Extremities: normal range of motion Skin: normal pigmentation, warm/dry Assessment/Plan Problem List: (1) Lung nodule (2) DVT (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 (3) Acute respiratory failure Assessment & Plan: S/P tracheostomy 10/03/16. Cont vent per pulmonary (4) COPD exacerbation Assessment & Plan: Continue duoneb. Continue vent per pulmonary. (5) Pneumonia Assessment & Plan: continue ceftazidime and IV flagyl per ID-continue tobramycin nebs (6) Leukocytosis Assessment & Plan: Continue PO vanco and IV flagyl per ID. (7) Dysphagia Assessment & Plan: See GI consult- S/P PEG 10/04/16. Assessment/Plan Discharge Planning: [facility] facility when bed available-see soc work note. TADEO VERDIN Oct 18, 2016 18:56
--- NOTE | 2016-10-18 19:02 | Infectious Diseases Prog Note ---
Assessment/Plan Assessment/Plan ASSESSMENT: 66 y/o male with: // COPD exacerbation - delayed SCx 4+ PSA pt has increased secretions - CXR 09/27: Lungs are hyperinflated. No new infiltrates - negative: influenza // Leukocytosis - SP ( post op, 10/01 SP steroids ) // Diarrhea x 1 resolved C Diff Neg // Febrile low grade // HIV and Hep B/C : neg // - PEG 10/04 // Acute VDRF - intubated 09/20, 10/03 SP trach // Severe pulmonary HTN / grade I diastolic dysfunction / mod TR // Pulmonary nodules // Chronic RLE DVT // Tobacco abuse // [facility] resident // Negative MRSA, VRE screens // NKDA // Full Code PLAN: - Monitor pt off of AB Rx ( 10/17 SP Ceftazidime d# 14 ) ( 10/13 SP Jairon nebs d# 14 ) ( 10/11 SP Flagyl d# 10 ) ( 10/04 SP oral Vanco d# 3 ) ( 09/24 SP amikacin, invanz d# 5 / 5 ) ( 09/21 SP IV vancomycin d# 2 ) - taper steroids per pulm - monitor CBC, temperatures - monitor BMP - monitor CXR - vent support, wean as tolerated. Subjective Constitutional: Denies: anorexia, chills, drenching sweats, fatigue, fever, no symptoms, other Allergies: Coded Allergies: No Known Allergies (Unverified , 06/17/16) Objective Vital Signs Last 24 Hour Vital Signs Date Time Temp Pulse Resp B/P Pulse Ox O2 Delivery O2 Flow Rate FiO2 10/18/16 18:57 88 17 40 10/18/16 16:52 93 18 40 10/18/16 16:00 82 10/18/16 16:00 97.3 78 20 109/77 100 Mechanical Ventilator 40 10/18/16 16:00 40 10/18/16 15:13 87 17 40 10/18/16 13:04 76 16 40 10/18/16 12:34 40 10/18/16 12:00 97.2 67 18 101/60 100 Mechanical Ventilator 40 10/18/16 12:00 71 10/18/16 10:40 85 16 40 10/18/16 08:36 89 17 40 10/18/16 08:00 86 10/18/16 08:00 99.1 84 20 102/63 100 Mechanical Ventilator 40 10/18/16 08:00 40 10/18/16 07:00 88 16 100 Mechanical Ventilator 40 10/18/16 06:59 95 15 40 10/18/16 06:51 40 10/18/16 06:50 90 16 100 Mechanical Ventilator 40 10/18/16 05:08 99 19 40 10/18/16 04:03 91 10/18/16 04:00 10.0 40 10/18/16 04:00 98.0 94 20 131/89 100 Mechanical Ventilator 40 10/18/16 02:50 94 20 40 10/18/16 01:19 98 17 40 10/18/16 00:00 10.0 40 10/18/16 00:00 98.4 89 20 119/80 100 Mechanical Ventilator 40 10/17/16 23:44 88 10/17/16 23:07 97 20 40 10/17/16 21:00 83 16 40 10/17/16 20:00 98.0 89 20 107/72 100 Mechanical Ventilator 40 10/17/16 20:00 40 10/17/16 19:42 85 10/17/16 19:09 110 20 100 Mechanical Ventilator 40 Height (Feet): 6 Height (Inches): 2.00 Weight (Pounds): 126 HEENT: anicteric Respiratory/Chest: lungs clear Cardiovascular: regular rhythm Abdomen: no organomegaly Laboratory Tests Test 10/18/16 04:49 White Blood Count 5.2 K/UL (4.8-10.8) # Red Blood Count 3.52 M/UL (4.70-6.10) L Hemoglobin 9.7 G/DL (14.2-18.0) L Hematocrit 32.6 % (42.0-52.0) L Mean Corpuscular Volume 93 FL (80-99) Mean Corpuscular Hemoglobin 27.7 PG (27.0-31.0) Mean Corpuscular Hemoglobin Concent 29.9 G/DL (32.0-36.0) L Red Cell Distribution Width 16.3 % (11.6-14.8) H Platelet Count 490 K/UL (150-450) H Mean Platelet Volume 6.3 FL (6.5-10.1) L Neutrophils (%) (Auto) 65.7 % (45.0-75.0) Lymphocytes (%) (Auto) 23.2 % (20.0-45.0) Monocytes (%) (Auto) 7.6 % (1.0-10.0) Eosinophils (%) (Auto) 2.4 % (0.0-3.0) Basophils (%) (Auto) 1.2 % (0.0-2.0) Sodium Level 140 mEQ/L (135-145) Potassium Level 4.3 mEQ/L (3.4-4.9) Chloride Level 98 mEQ/L (98-107) Carbon Dioxide Level 37 mEQ/L (20-30) H Anion Gap 5 (5-15) Blood Urea Nitrogen 9 mg/dL (7-23) Creatinine 0.4 mg/dL (0.7-1.2) L Estimat Glomerular Filtration Rate > 60 mL/min (>60) Glucose Level 102 mg/dL (74-106) Calcium Level 9.0 mg/dL (8.6-10.2) Phosphorus Level 3.6 mg/dL (2.5-4.8) Magnesium Level 2.0 mg/dL (1.7-2.5) Total Bilirubin < 0.2 mg/dL (0.0-1.2) Aspartate Amino Transf (AST/SGOT) 17 U/L (5-40) Alanine Aminotransferase (ALT/SGPT) 15 U/L (3-41) Alkaline Phosphatase 89 U/L (40-129) Total Protein 6.9 g/dL (6.6-8.7) Albumin 2.9 g/dL (3.5-5.2) L Globulin 4.0 g/dL Albumin/Globulin Ratio 0.7 (1.0-2.7) L Current Medications Medications (Trade) Dose Ordered Sig/Shraddha Route PRN Reason Start Time Stop Time Status Last Admin Dose Admin Acetaminophen (Tylenol) 650 mg Q4H PRN ORAL fever>100.5 10/05/16 11:30 11/04/16 11:29 Albuterol/ Ipratropium (DuoNeb 0.5-3(2.5)mg/3ml) 3 ml Q4H PRN HHN Shortness of Breath 10/16/16 16:45 10/21/16 16:44 10/18/16 06:59 Dextrose (Dextrose 50%) STAT PRN IV Hypoglycemia 10/05/16 11:30 11/04/16 11:29 Insulin Aspart (NovoLOG) start when feeding started Q6HR SUBQ 10/05/16 12:00 11/04/16 11:59 10/18/16 00:15 Lorazepam (Ativan 2mg/ml 1ml) 1 mg Q4H PRN IV For Anxiety 10/13/16 05:00 10/20/16 04:59 10/16/16 20:28 Ondansetron HCl (Zofran) 4 mg Q6H PRN IVP Nausea & Vomiting 10/05/16 11:30 11/04/16 11:29 Pantoprazole (Protonix) 40 mg DAILY IVP 10/06/16 09:00 11/05/16 08:59 10/18/16 08:16 Polyethylene Glycol (Miralax) 17 gm DAILYPRN PRN ORAL Constipation 10/05/16 11:30 11/04/16 11:29 KIMBERLEE HINKLE M.D. Oct 18, 2016 19:02
[2016-10-18 20:00] VITALS: BP 112/77
[2016-10-19] VITALS: BP 125/79
[2016-10-19] MEDS: LORazepam Inj 2mg/ml 1ml IV PRN ×2 (00:07→12:21)
[2016-10-19 04:00] VITALS: BP 110/73
[2016-10-19 05:21] LABS: BASOPHILS % (AUTO) 1.7 % (0.0-2.0); EOSINOPHILS % (AUTO) 3.1 % (0.0-3.0); MEAN CORPUSCULAR HEMOGLOBIN 27.5 PG (27.0-31.0); MEAN CORPUSCULAR HGB CONC 29.6 G/DL (32.0-36.0); MEAN CORPUSCULAR VOLUME 93 FL (80-99); MONOCYTES % (AUTO) 8.3 % (1.0-10.0); PLATELET COUNT 455 K/UL (150-450); RED BLOOD COUNT 3.64 M/UL (4.70-6.10); WHITE BLOOD COUNT 3.9 K/UL (4.8-10.8)
[2016-10-19 05:46] LABS: ANION GAP 7 (5-15); CALCIUM 9.2 mg/dL (8.6-10.2); CARBON DIOXIDE 35 mEQ/L (20-30); CHLORIDE 98 mEQ/L (98-107); CREATININE 0.4 mg/dL (0.7-1.2); GLOMERULAR FILTRATION RATE > 60 mL/min (>60); HEMOLYSIS 3; SODIUM 140 mEQ/L (135-145)
[2016-10-19] MEDS: NovoLOG Insulin Flexpen SUBQ SCH ×4 (06:00→17:25)
[2016-10-19 08:00] VITALS: BP 94/73
[2016-10-19] MEDS: Pantoprazole Inj IVP SCH (08:19)
--- NOTE | 2016-10-19 09:12 | Pulmonology Progress Note ---
Assessment/Plan Assessment/Plan ASSESSMENT acute hypoxemic hypercapnic respiratory failure requiring intubation failure to wean s/p trach 10/03 dysphagia, G tube placement 10/04 acute COPD exacerbation emphysema possible PNA , s/p Rx Pulmonary nodules Chronic RLE DVT Tobacco abuse Hx HTN DM acute on chronic encephalopathy anemia elevated LFT -resolved PLAN OF CARE JORDAN vent , trach care Pulmonary toilet s/p Abx Rx, ID follows, observe off abx s/p steroids, BS management with sensitive SS of insulin strict aspiration precautions, monitor GT feeding tolerance pain management bowel regimen monitor HH, anemia workup with low iron, stool OB positive, s/p Venofer GI follows GI recommended to repeat stool OB in 2-3- weeks PPI LFT stable currently, hepatitis panel negative abdominal US no dilated ducts awaiting for placement to subacute case discussed and evaluated by supervising physician Subjective Allergies: Coded Allergies: No Known Allergies (Unverified , 06/17/16) Subjective leukocytosis resolved, afebrile, tolerates GT feeding no signs of respiratory distress awaiting for placement Objective Last 24 Hour Vital Signs Date Time Temp Pulse Resp B/P Pulse Ox O2 Delivery O2 Flow Rate FiO2 10/19/16 08:00 97.0 97 16 94/73 100 Mechanical Ventilator 40 10/19/16 08:00 40 10/19/16 07:57 94 10/19/16 07:04 99 16 40 10/19/16 04:47 86 16 40 10/19/16 04:00 97.4 91 22 110/73 100 Mechanical Ventilator 40 10/19/16 04:00 40 10/19/16 03:39 84 10/19/16 02:40 78 16 40 10/19/16 00:49 81 16 40 10/19/16 00:00 98.4 90 20 125/79 100 Mechanical Ventilator 40 10/19/16 00:00 40 10/19/16 00:00 85 10/18/16 22:50 78 16 40 10/18/16 21:17 83 17 40 10/18/16 20:00 82 10/18/16 20:00 97.3 70 20 112/77 100 Mechanical Ventilator 40 10/18/16 20:00 40 10/18/16 18:57 88 17 40 10/18/16 16:52 93 18 40 10/18/16 16:00 82 10/18/16 16:00 97.3 78 20 109/77 100 Mechanical Ventilator 40 10/18/16 16:00 40 10/18/16 15:13 87 17 40 10/18/16 13:04 76 16 40 10/18/16 12:34 40 10/18/16 12:00 97.2 67 18 101/60 100 Mechanical Ventilator 40 10/18/16 12:00 71 10/18/16 10:40 85 16 40 Intake and Output 10/18/16 10/19/16 19:00 07:00 Intake Total 860 ml 810 ml Output Total 1425 ml 300 ml Balance -565 ml 510 ml Free Water 200 ml 150 ml Tube Feeding 660 ml 660 ml Output Urine Total 1425 ml 300 ml # Bowel Movements 1 Objective General Appearance: no apparent distress, vent AC 600-16-40% HEENT: normocephalic, atraumatic, anicteric Neck: trach, Shiley #8, secretions moderate , yellow, thin Respiratory/Chest: decreased breath sounds Cardiovascular/Chest: regular rate and rhythm, no JVD, Abdomen: normal bowel sounds, non tender, soft Extremities: normal capillary refill Neurologic: abnormal gait, lethargic Musculoskeletal: normal muscle bulk Laboratory Tests 10/19/16 04:30: White Blood Count 3.9L, Red Blood Count 3.64L, Hemoglobin 10.0L, Hematocrit 33.8L, Mean Corpuscular Volume 93, Mean Corpuscular Hemoglobin 27.5, Mean Corpuscular Hemoglobin Concent 29.6L, Red Cell Distribution Width 16.0H, Platelet Count 455H, Mean Platelet Volume 6.0L, Neutrophils (%) (Auto) 52.0, Lymphocytes (%) (Auto) 35.0, Monocytes (%) (Auto) 8.3, Eosinophils (%) (Auto) 3.1H, Basophils (%) (Auto) 1.7, Sodium Level 140, Potassium Level 5.0H, Chloride Level 98, Carbon Dioxide Level 35H, Anion Gap 7, Blood Urea Nitrogen 11 , Creatinine 0.4L, Estimat Glomerular Filtration Rate > 60, Glucose Level 80, Calcium Level 9.2 Current Medications Medications (Trade) Dose Ordered Sig/Shraddha Route PRN Reason Start Time Stop Time Status Last Admin Dose Admin Acetaminophen (Tylenol) 650 mg Q4H PRN ORAL fever>100.5 10/05/16 11:30 11/04/16 11:29 Albuterol/ Ipratropium (DuoNeb 0.5-3(2.5)mg/3ml) 3 ml Q4H PRN HHN Shortness of Breath 10/16/16 16:45 10/21/16 16:44 10/18/16 06:59 Dextrose (Dextrose 50%) STAT PRN IV Hypoglycemia 10/05/16 11:30 11/04/16 11:29 Insulin Aspart (NovoLOG) start when feeding started Q6HR SUBQ 10/05/16 12:00 11/04/16 11:59 10/18/16 00:15 Lorazepam (Ativan 2mg/ml 1ml) 1 mg Q4H PRN IV For Anxiety 10/13/16 05:00 10/20/16 04:59 10/19/16 00:07 Ondansetron HCl (Zofran) 4 mg Q6H PRN IVP Nausea & Vomiting 10/05/16 11:30 11/04/16 11:29 Pantoprazole (Protonix) 40 mg DAILY IVP 10/06/16 09:00 11/05/16 08:59 10/19/16 08:19 Polyethylene Glycol (Miralax) 17 gm DAILYPRN PRN ORAL Constipation 10/05/16 11:30 11/04/16 11:29 Katia Sequeira NP ([facility]anchte[facility]) Oct 19, 2016 09:12
[2016-10-19 12:00] VITALS: BP 125/85
[2016-10-19] MEDS: DuoNeb 0.5-3(2.5)mg/3ml neb HHN PRN ×2 (12:53→20:37)
--- NOTE | 2016-10-19 14:32 | Internal Med Progress Note ---
Subjective Date of Service: Oct 19, 2016 Physician Name Tadeo Verdin Attending Physician Steve Rader MD Current Medications Medications (Trade) Dose Ordered Sig/Shraddha Route PRN Reason Start Time Stop Time Status Last Admin Dose Admin Acetaminophen (Tylenol) 650 mg Q4H PRN ORAL fever>100.5 10/05/16 11:30 11/04/16 11:29 Albuterol/ Ipratropium (DuoNeb 0.5-3(2.5)mg/3ml) 3 ml Q4H PRN HHN Shortness of Breath 10/19/16 10:00 10/24/16 09:59 10/19/16 12:53 Dextrose (Dextrose 50%) STAT PRN IV Hypoglycemia 10/05/16 11:30 11/04/16 11:29 Insulin Aspart (NovoLOG) start when feeding started Q6HR SUBQ 10/05/16 12:00 11/04/16 11:59 10/18/16 00:15 Lorazepam (Ativan 2mg/ml 1ml) 1 mg Q4H PRN IV For Anxiety 10/13/16 05:00 10/20/16 04:59 10/19/16 12:21 Ondansetron HCl (Zofran) 4 mg Q6H PRN IVP Nausea & Vomiting 10/05/16 11:30 11/04/16 11:29 Pantoprazole (Protonix) 40 mg DAILY IVP 10/06/16 09:00 11/05/16 08:59 10/19/16 08:19 Polyethylene Glycol (Miralax) 17 gm DAILYPRN PRN ORAL Constipation 10/05/16 11:30 11/04/16 11:29 Allergies: Coded Allergies: No Known Allergies (Unverified , 06/17/16) ROS Limited/Unobtainable: Yes Subjective 66 YO M admitted with respiratory failure. JORDAN. Intubated and sedated. Await transfer to [facility]. Cover for Int Med-Dr Rader. Objective Last Vital Signs Date Time Temp Pulse Resp B/P Pulse Ox O2 Delivery O2 Flow Rate FiO2 10/19/16 12:50 108 16 100 Mechanical Ventilator 40 10/19/16 12:00 97.5 125/85 10/18/16 04:00 10.0 Laboratory Tests Test 10/19/16 04:30 White Blood Count 3.9 K/UL (4.8-10.8) L Red Blood Count 3.64 M/UL (4.70-6.10) L Hemoglobin 10.0 G/DL (14.2-18.0) L Hematocrit 33.8 % (42.0-52.0) L Mean Corpuscular Volume 93 FL (80-99) Mean Corpuscular Hemoglobin 27.5 PG (27.0-31.0) Mean Corpuscular Hemoglobin Concent 29.6 G/DL (32.0-36.0) L Red Cell Distribution Width 16.0 % (11.6-14.8) H Platelet Count 455 K/UL (150-450) H Mean Platelet Volume 6.0 FL (6.5-10.1) L Neutrophils (%) (Auto) 52.0 % (45.0-75.0) Lymphocytes (%) (Auto) 35.0 % (20.0-45.0) Monocytes (%) (Auto) 8.3 % (1.0-10.0) Eosinophils (%) (Auto) 3.1 % (0.0-3.0) H Basophils (%) (Auto) 1.7 % (0.0-2.0) Sodium Level 140 mEQ/L (135-145) Potassium Level 5.0 mEQ/L (3.4-4.9) H Chloride Level 98 mEQ/L (98-107) Carbon Dioxide Level 35 mEQ/L (20-30) H Anion Gap 7 (5-15) Blood Urea Nitrogen 11 mg/dL (7-23) Creatinine 0.4 mg/dL (0.7-1.2) L Estimat Glomerular Filtration Rate > 60 mL/min (>60) Glucose Level 80 mg/dL (74-106) Calcium Level 9.2 mg/dL (8.6-10.2) Intake and Output 10/18/16 10/19/16 19:00 07:00 Intake Total 860 ml 810 ml Output Total 1425 ml 300 ml Balance -565 ml 510 ml Free Water 200 ml 150 ml Tube Feeding 660 ml 660 ml Output Urine Total 1425 ml 300 ml # Bowel Movements 1 Objective General Appearance: moderate distress, thin EENT: PERRL/EOMI, normal ENT inspection Neck: non-tender, normal alignment, supple Cardiovascular: normal peripheral pulses, normal rate, regular rhythm, no gallop/murmur, no JVD Respiratory/Chest: Trach; Mech Vent; trach; respiratory distress, crackles/ rales, rhonchi - bilaterally, expiratory wheezing Abdomen: non tender, soft, no organomegaly, no mass, decreased bowel sounds Extremities: normal range of motion Skin: normal pigmentation, warm/dry Assessment/Plan Problem List: (1) Lung nodule (2) DVT (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 (3) Acute respiratory failure Assessment & Plan: S/P tracheostomy 10/03/16. Cont vent per pulmonary (4) COPD exacerbation Assessment & Plan: Continue duoneb. Continue vent per pulmonary. (5) Pneumonia Assessment & Plan: Observe off antibiotics per ID (6) Leukocytosis Assessment & Plan: Continue off antibiotics per ID. (7) Dysphagia Assessment & Plan: See GI consult- S/P PEG 10/04/16. Status: not improved Assessment/Plan Discharge Planning: [facility] facility when bed available-see soc work note. TADEO VERDIN Oct 19, 2016 14:32
--- NOTE | 2016-10-19 15:21 | General Progress Note ---
Assessment/Plan Assessment/Plan Assessment - abnormal LFT - resolved - loose stools - COPD - respiratory failure - s/p trach and PEG - dysphagia - OB (+) - possibly due to bleeding at time of PEG or Trach. Need to repeat in few weeks. - Anemia Recommendations - check C Diff --> neg - follow LFT periodically - elevate HOB - GT care - repeat stool OB in 2-3 weeks - s/p EGD this admission and recent colonoscopy at [place] Subjective Allergies: Coded Allergies: No Known Allergies (Unverified , 06/17/16) Subjective above noted tolerating TF comfortable Objective Last 24 Hour Vital Signs Date Time Temp Pulse Resp B/P Pulse Ox O2 Delivery O2 Flow Rate FiO2 10/19/16 15:01 88 15 40 10/19/16 12:50 108 16 100 Mechanical Ventilator 40 10/19/16 12:42 40 10/19/16 12:41 113 15 100 Mechanical Ventilator 40 10/19/16 12:40 113 15 40 10/19/16 12:00 40 10/19/16 12:00 97.5 104 16 125/85 100 Mechanical Ventilator 40 10/19/16 11:59 106 10/19/16 11:02 90 15 40 10/19/16 09:02 91 15 40 10/19/16 08:00 97.0 97 16 94/73 100 Mechanical Ventilator 40 10/19/16 08:00 40 10/19/16 07:57 94 10/19/16 07:04 99 16 40 10/19/16 04:47 86 16 40 10/19/16 04:00 97.4 91 22 110/73 100 Mechanical Ventilator 40 10/19/16 04:00 40 10/19/16 03:39 84 10/19/16 02:40 78 16 40 10/19/16 00:49 81 16 40 10/19/16 00:00 98.4 90 20 125/79 100 Mechanical Ventilator 40 10/19/16 00:00 40 10/19/16 00:00 85 10/18/16 22:50 78 16 40 10/18/16 21:17 83 17 40 10/18/16 20:00 82 10/18/16 20:00 97.3 70 20 112/77 100 Mechanical Ventilator 40 10/18/16 20:00 40 10/18/16 18:57 88 17 40 10/18/16 16:52 93 18 40 10/18/16 16:00 82 10/18/16 16:00 97.3 78 20 109/77 100 Mechanical Ventilator 40 10/18/16 16:00 40 Intake and Output 10/18/16 10/19/16 18:59 06:59 Intake Total 860 ml 870 ml Output Total 1425 ml 300 ml Balance -565 ml 570 ml Free Water 200 ml 150 ml Tube Feeding 660 ml 720 ml Output Urine Total 1425 ml 300 ml # Bowel Movements 1 Laboratory Tests 10/19/16 04:30: White Blood Count 3.9L, Red Blood Count 3.64L, Hemoglobin 10.0L, Hematocrit 33.8L, Mean Corpuscular Volume 93, Mean Corpuscular Hemoglobin 27.5, Mean Corpuscular Hemoglobin Concent 29.6L, Red Cell Distribution Width 16.0H, Platelet Count 455H, Mean Platelet Volume 6.0L, Neutrophils (%) (Auto) 52.0, Lymphocytes (%) (Auto) 35.0, Monocytes (%) (Auto) 8.3, Eosinophils (%) (Auto) 3.1H, Basophils (%) (Auto) 1.7, Sodium Level 140, Potassium Level 5.0H, Chloride Level 98, Carbon Dioxide Level 35H, Anion Gap 7, Blood Urea Nitrogen 11 , Creatinine 0.4L, Estimat Glomerular Filtration Rate > 60, Glucose Level 80, Calcium Level 9.2 Height (Feet): 6 Height (Inches): 2.00 Weight (Pounds): 126 Objective Elderly AA man NCAT (+) trach Coarse BS RRR soft NT abdomen, (+) GT responsive ROSEMARY BURROUGHS Oct 19, 2016 15:21
[2016-10-19 16:00] VITALS: BP 97/61
[2016-10-19 20:35] VITALS: BP 133/66
[2016-10-20] VITALS: BP 105/66
[2016-10-20] MEDS: LORazepam Inj 2mg/ml 1ml IV PRN (01:50)
[2016-10-20 04:00] VITALS: BP 102/75
[2016-10-20 05:51] LABS: BASOPHILS % (AUTO) 1.5 % (0.0-2.0); EOSINOPHILS % (AUTO) 3.7 % (0.0-3.0); LYMPHOCYTES % (AUTO) 24.3 % (20.0-45.0); MEAN CORPUSCULAR HEMOGLOBIN 27.6 PG (27.0-31.0); MEAN CORPUSCULAR HGB CONC 29.8 G/DL (32.0-36.0); MEAN CORPUSCULAR VOLUME 93 FL (80-99); MEAN PLATELET VOLUME 6.1 FL (6.5-10.1); MONOCYTES % (AUTO) 12.6 % (1.0-10.0); NEUTROPHILS % (AUTO) 57.9 % (45.0-75.0); PLATELET COUNT 417 K/UL (150-450); RED BLOOD COUNT 3.27 M/UL (4.70-6.10); WHITE BLOOD COUNT 4.6 K/UL (4.8-10.8)
[2016-10-20] MEDS: NovoLOG Insulin Flexpen SUBQ SCH ×5 (06:00→23:19)
[2016-10-20 06:08] LABS: ANION GAP 7 (5-15); CALCIUM 9.1 mg/dL (8.6-10.2); CARBON DIOXIDE 37 mEQ/L (20-30); CHLORIDE 95 mEQ/L (98-107); CREATININE 0.5 mg/dL (0.7-1.2); GLOMERULAR FILTRATION RATE > 60 mL/min (>60); HEMOLYSIS 1; POTASSIUM 4.5 mEQ/L (3.4-4.9); SODIUM 139 mEQ/L (135-145)
[2016-10-20] MEDS: Pantoprazole Inj IVP SCH (08:15)
[2016-10-20 08:19] VITALS: BP 90/58
--- NOTE | 2016-10-20 08:39 | Infectious Diseases Prog Note ---
Assessment/Plan Assessment/Plan A: Pneumonia with Pseudomonas s/p RX Leukocytosis resolved COPD VDRF Pulmonary HPN P: observe off antibiotics Subjective ROS Limited/Unobtainable: Yes Respiratory: Reports: dry cough Musculoskeletal: Reports: no symptoms Allergies: Coded Allergies: No Known Allergies (Unverified , 06/17/16) Objective Vital Signs Last 24 Hour Vital Signs Date Time Temp Pulse Resp B/P Pulse Ox O2 Delivery O2 Flow Rate FiO2 10/20/16 08:19 98.2 78 17 90/58 100 Mechanical Ventilator 40 10/20/16 08:00 72 10/20/16 08:00 10.0 40 10/20/16 07:11 78 16 40 10/20/16 05:02 77 16 40 10/20/16 04:00 10.0 40 10/20/16 04:00 97.0 16 102/75 98 Mechanical Ventilator 40 10/20/16 04:00 66 10/20/16 02:50 80 16 40 10/20/16 01:00 76 18 40 10/20/16 00:00 85 10/20/16 00:00 98.0 74 17 105/66 98 10/19/16 22:35 75 16 40 10/19/16 21:19 77 10/19/16 21:06 10.0 40 10/19/16 20:44 90 17 100 Mechanical Ventilator 40 10/19/16 20:36 86 18 100 Mechanical Ventilator 40 10/19/16 20:36 40 10/19/16 20:35 86 18 40 10/19/16 20:35 97.7 77 16 133/66 100 Mechanical Ventilator 40 10/19/16 18:45 85 17 40 10/19/16 16:43 81 16 40 10/19/16 16:00 97.9 89 16 97/61 100 Mechanical Ventilator 40 10/19/16 16:00 95 10/19/16 16:00 40 10/19/16 15:01 88 15 40 10/19/16 12:50 108 16 100 Mechanical Ventilator 40 10/19/16 12:42 40 10/19/16 12:41 113 15 100 Mechanical Ventilator 40 10/19/16 12:40 113 15 40 10/19/16 12:00 40 10/19/16 12:00 97.5 104 16 125/85 100 Mechanical Ventilator 40 10/19/16 11:59 106 10/19/16 11:02 90 15 40 10/19/16 09:02 91 15 40 Height (Feet): 6 Height (Inches): 2.00 Weight (Pounds): 126 General Appearance: no acute distress HEENT: status post trach Respiratory/Chest: other - on ventilator Cardiovascular: normal rate Abdomen: soft, non tender, other - GT feeding Extremities: no edema Neurologic/Psychiatric: alert, responsive Laboratory Tests Test 10/20/16 05:10 White Blood Count 4.6 K/UL (4.8-10.8) L Red Blood Count 3.27 M/UL (4.70-6.10) L Hemoglobin 9.0 G/DL (14.2-18.0) L Hematocrit 30.3 % (42.0-52.0) L Mean Corpuscular Volume 93 FL (80-99) Mean Corpuscular Hemoglobin 27.6 PG (27.0-31.0) Mean Corpuscular Hemoglobin Concent 29.8 G/DL (32.0-36.0) L Red Cell Distribution Width 16.0 % (11.6-14.8) H Platelet Count 417 K/UL (150-450) Mean Platelet Volume 6.1 FL (6.5-10.1) L Neutrophils (%) (Auto) 57.9 % (45.0-75.0) Lymphocytes (%) (Auto) 24.3 % (20.0-45.0) Monocytes (%) (Auto) 12.6 % (1.0-10.0) H Eosinophils (%) (Auto) 3.7 % (0.0-3.0) H Basophils (%) (Auto) 1.5 % (0.0-2.0) Sodium Level 139 mEQ/L (135-145) Potassium Level 4.5 mEQ/L (3.4-4.9) Chloride Level 95 mEQ/L (98-107) L Carbon Dioxide Level 37 mEQ/L (20-30) H Anion Gap 7 (5-15) Blood Urea Nitrogen 18 mg/dL (7-23) Creatinine 0.5 mg/dL (0.7-1.2) L Estimat Glomerular Filtration Rate > 60 mL/min (>60) Glucose Level 115 mg/dL (74-106) H Calcium Level 9.1 mg/dL (8.6-10.2) Current Medications Medications (Trade) Dose Ordered Sig/Shraddha Route PRN Reason Start Time Stop Time Status Last Admin Dose Admin Acetaminophen (Tylenol) 650 mg Q4H PRN ORAL fever>100.5 10/05/16 11:30 11/04/16 11:29 Albuterol/ Ipratropium (DuoNeb 0.5-3(2.5)mg/3ml) 3 ml Q4H PRN HHN Shortness of Breath 10/19/16 10:00 10/24/16 09:59 10/19/16 20:37 Dextrose (Dextrose 50%) STAT PRN IV Hypoglycemia 10/05/16 11:30 11/04/16 11:29 Insulin Aspart (NovoLOG) start when feeding started Q6HR SUBQ 10/05/16 12:00 11/04/16 11:59 10/18/16 00:15 Ondansetron HCl (Zofran) 4 mg Q6H PRN IVP Nausea & Vomiting 10/05/16 11:30 11/04/16 11:29 Pantoprazole (Protonix) 40 mg DAILY IVP 10/06/16 09:00 11/05/16 08:59 10/20/16 08:15 Polyethylene Glycol (Miralax) 17 gm DAILYPRN PRN ORAL Constipation 10/05/16 11:30 11/04/16 11:29 LINNETTE DIAZ Oct 20, 2016 08:39
[2016-10-20] MEDS: DuoNeb 0.5-3(2.5)mg/3ml neb HHN PRN ×4 (09:10→22:47)
--- NOTE | 2016-10-20 11:24 | Pulmonology Progress Note ---
Assessment/Plan Assessment/Plan ASSESSMENT acute hypoxemic hypercapnic respiratory failure requiring intubation failure to wean s/p trach 10/03 dysphagia, G tube placement 10/04 acute COPD exacerbation emphysema possible PNA , s/p Rx Pulmonary nodules Chronic RLE DVT Tobacco abuse Hx HTN DM acute on chronic encephalopathy anemia elevated LFT -resolved PLAN OF CARE JORDAN vent , trach care Pulmonary toilet s/p Abx Rx, ID follows, observe off abx s/p steroids, BS management with sensitive SS of insulin strict aspiration precautions, monitor GT feeding tolerance pain management bowel regimen monitor HH, anemia workup with low iron, stool OB positive, s/p Venofer GI follows GI recommended to repeat stool OB in 2-3- weeks PPI LFT stable currently, hepatitis panel negative abdominal US no dilated ducts awaiting for placement to [facility], transfer when placement arranged case discussed and evaluated by supervising physician Subjective Allergies: Coded Allergies: No Known Allergies (Unverified , 06/17/16) Subjective leukocytosis resolved, afebrile, tolerates GT feeding no signs of respiratory distress awaiting for placement Objective Last 24 Hour Vital Signs Date Time Temp Pulse Resp B/P Pulse Ox O2 Delivery O2 Flow Rate FiO2 10/20/16 09:19 92 16 100 Mechanical Ventilator 40 10/20/16 09:10 88 18 100 Mechanical Ventilator 40 10/20/16 09:10 40 10/20/16 09:10 92 16 40 10/20/16 08:19 98.2 78 17 90/58 100 Mechanical Ventilator 40 10/20/16 08:00 72 10/20/16 08:00 10.0 40 10/20/16 07:11 78 16 40 10/20/16 05:02 77 16 40 10/20/16 04:00 10.0 40 10/20/16 04:00 97.0 16 102/75 98 Mechanical Ventilator 40 10/20/16 04:00 66 10/20/16 02:50 80 16 40 10/20/16 01:00 76 18 40 10/20/16 00:00 85 10/20/16 00:00 98.0 74 17 105/66 98 10/19/16 22:35 75 16 40 10/19/16 21:19 77 10/19/16 21:06 10.0 40 10/19/16 20:44 90 17 100 Mechanical Ventilator 40 10/19/16 20:36 86 18 100 Mechanical Ventilator 40 10/19/16 20:36 40 10/19/16 20:35 86 18 40 10/19/16 20:35 97.7 77 16 133/66 100 Mechanical Ventilator 40 10/19/16 18:45 85 17 40 10/19/16 16:43 81 16 40 10/19/16 16:00 97.9 89 16 97/61 100 Mechanical Ventilator 40 10/19/16 16:00 95 10/19/16 16:00 40 10/19/16 15:01 88 15 40 10/19/16 12:50 108 16 100 Mechanical Ventilator 40 10/19/16 12:42 40 10/19/16 12:41 113 15 100 Mechanical Ventilator 40 10/19/16 12:40 113 15 40 10/19/16 12:00 40 10/19/16 12:00 97.5 104 16 125/85 100 Mechanical Ventilator 40 10/19/16 11:59 106 Intake and Output 10/19/16 10/20/16 19:00 07:00 Intake Total 980 ml 1640 ml Output Total 450 ml Balance 530 ml 1640 ml Intake Oral 720 ml Free Water 200 ml 100 ml Tube Feeding 780 ml 720 ml Other 100 ml Output Urine Total 450 ml # Bowel Movements 2 Objective General Appearance: no apparent distress, vent AC 600-16-40% HEENT: normocephalic, atraumatic, anicteric Neck: trach, Shiley #8, secretions moderate , yellow, thin Respiratory/Chest: decreased breath sounds Cardiovascular/Chest: regular rate and rhythm, no JVD, Abdomen: normal bowel sounds, non tender, soft Extremities: normal capillary refill Neurologic: abnormal gait, lethargic Musculoskeletal: normal muscle bulk Laboratory Tests 10/20/16 05:10: White Blood Count 4.6L, Red Blood Count 3.27L, Hemoglobin 9.0L, Hematocrit 30.3L , Mean Corpuscular Volume 93, Mean Corpuscular Hemoglobin 27.6, Mean Corpuscular Hemoglobin Concent 29.8L, Red Cell Distribution Width 16.0H, Platelet Count 417, Mean Platelet Volume 6.1L, Neutrophils (%) (Auto) 57.9, Lymphocytes (%) (Auto) 24.3, Monocytes (%) (Auto) 12.6H, Eosinophils (%) (Auto) 3.7H, Basophils (%) (Auto) 1.5, Sodium Level 139, Potassium Level 4.5, Chloride Level 95L, Carbon Dioxide Level 37H, Anion Gap 7, Blood Urea Nitrogen 18, Creatinine 0.5L, Estimat Glomerular Filtration Rate > 60, Glucose Level 115H, Calcium Level 9.1 Current Medications Medications (Trade) Dose Ordered Sig/Shraddha Route PRN Reason Start Time Stop Time Status Last Admin Dose Admin Acetaminophen (Tylenol) 650 mg Q4H PRN ORAL fever>100.5 10/05/16 11:30 11/04/16 11:29 Albuterol/ Ipratropium (DuoNeb 0.5-3(2.5)mg/3ml) 3 ml Q4H PRN HHN Shortness of Breath 10/19/16 10:00 10/24/16 09:59 10/20/16 09:10 Dextrose (Dextrose 50%) STAT PRN IV Hypoglycemia 10/05/16 11:30 11/04/16 11:29 Insulin Aspart (NovoLOG) start when feeding started Q6HR SUBQ 10/05/16 12:00 11/04/16 11:59 10/18/16 00:15 Ondansetron HCl (Zofran) 4 mg Q6H PRN IVP Nausea & Vomiting 10/05/16 11:30 11/04/16 11:29 Pantoprazole (Protonix) 40 mg DAILY IVP 10/06/16 09:00 11/05/16 08:59 10/20/16 08:15 Polyethylene Glycol (Miralax) 17 gm DAILYPRN PRN ORAL Constipation 10/05/16 11:30 11/04/16 11:29 Katia Sequeira NP ([facility]) Oct 20, 2016 11:24
[2016-10-20 12:00] VITALS: BP 99/62
--- NOTE | 2016-10-20 15:07 | Internal Med Progress Note ---
Subjective Date of Service: Oct 20, 2016 Physician Name Tadeo Verdin Attending Physician Steve Rader MD Current Medications Medications (Trade) Dose Ordered Sig/Shraddha Route PRN Reason Start Time Stop Time Status Last Admin Dose Admin Acetaminophen (Tylenol) 650 mg Q4H PRN ORAL fever>100.5 10/05/16 11:30 11/04/16 11:29 Albuterol/ Ipratropium (DuoNeb 0.5-3(2.5)mg/3ml) 3 ml Q4H PRN HHN Shortness of Breath 10/19/16 10:00 10/24/16 09:59 10/20/16 13:05 Dextrose (Dextrose 50%) STAT PRN IV Hypoglycemia 10/05/16 11:30 11/04/16 11:29 Insulin Aspart (NovoLOG) start when feeding started Q6HR SUBQ 10/05/16 12:00 11/04/16 11:59 10/18/16 00:15 Ondansetron HCl (Zofran) 4 mg Q6H PRN IVP Nausea & Vomiting 10/05/16 11:30 11/04/16 11:29 Pantoprazole (Protonix) 40 mg DAILY IVP 10/06/16 09:00 11/05/16 08:59 10/20/16 08:15 Polyethylene Glycol (Miralax) 17 gm DAILYPRN PRN ORAL Constipation 10/05/16 11:30 11/04/16 11:29 Allergies: Coded Allergies: No Known Allergies (Unverified , 06/17/16) ROS Limited/Unobtainable: Yes Subjective 66 YO M admitted with respiratory failure. JORDAN. Intubated and sedated. Await transfer to [facility]. Cover for Int Med-Dr Rader. Objective Last Vital Signs Date Time Temp Pulse Resp B/P Pulse Ox O2 Delivery O2 Flow Rate FiO2 10/20/16 13:15 91 16 100 Mechanical Ventilator 40 10/20/16 12:00 97.3 99/62 10/20/16 12:00 10.0 Laboratory Tests Test 10/20/16 05:10 White Blood Count 4.6 K/UL (4.8-10.8) L Red Blood Count 3.27 M/UL (4.70-6.10) L Hemoglobin 9.0 G/DL (14.2-18.0) L Hematocrit 30.3 % (42.0-52.0) L Mean Corpuscular Volume 93 FL (80-99) Mean Corpuscular Hemoglobin 27.6 PG (27.0-31.0) Mean Corpuscular Hemoglobin Concent 29.8 G/DL (32.0-36.0) L Red Cell Distribution Width 16.0 % (11.6-14.8) H Platelet Count 417 K/UL (150-450) Mean Platelet Volume 6.1 FL (6.5-10.1) L Neutrophils (%) (Auto) 57.9 % (45.0-75.0) Lymphocytes (%) (Auto) 24.3 % (20.0-45.0) Monocytes (%) (Auto) 12.6 % (1.0-10.0) H Eosinophils (%) (Auto) 3.7 % (0.0-3.0) H Basophils (%) (Auto) 1.5 % (0.0-2.0) Sodium Level 139 mEQ/L (135-145) Potassium Level 4.5 mEQ/L (3.4-4.9) Chloride Level 95 mEQ/L (98-107) L Carbon Dioxide Level 37 mEQ/L (20-30) H Anion Gap 7 (5-15) Blood Urea Nitrogen 18 mg/dL (7-23) Creatinine 0.5 mg/dL (0.7-1.2) L Estimat Glomerular Filtration Rate > 60 mL/min (>60) Glucose Level 115 mg/dL (74-106) H Calcium Level 9.1 mg/dL (8.6-10.2) Intake and Output 10/19/16 10/20/16 19:00 07:00 Intake Total 980 ml 1640 ml Output Total 450 ml Balance 530 ml 1640 ml Intake Oral 720 ml Free Water 200 ml 100 ml Tube Feeding 780 ml 720 ml Other 100 ml Output Urine Total 450 ml # Bowel Movements 2 Objective General Appearance: moderate distress, thin EENT: PERRL/EOMI, normal ENT inspection Neck: non-tender, normal alignment, supple Cardiovascular: normal peripheral pulses, normal rate, regular rhythm, no gallop/murmur, no JVD Respiratory/Chest: Trach; Mech Vent; trach; respiratory distress, crackles/ rales, rhonchi - bilaterally, expiratory wheezing Abdomen: non tender, soft, no organomegaly, no mass, decreased bowel sounds Extremities: normal range of motion Skin: normal pigmentation, warm/dry Assessment/Plan Problem List: (1) Lung nodule (2) DVT (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 (3) Acute respiratory failure Assessment & Plan: S/P tracheostomy 10/03/16. Cont vent per pulmonary (4) COPD exacerbation Assessment & Plan: Continue duoneb. Continue vent per pulmonary. (5) Pneumonia Assessment & Plan: Observe off antibiotics per ID (6) Leukocytosis Assessment & Plan: Continue off antibiotics per ID. (7) Dysphagia Assessment & Plan: See GI consult- S/P PEG 10/04/16. Status: stable Assessment/Plan Discharge Planning: shelter facility when bed available-see soc work note. TADEO VERDIN Oct 20, 2016 15:07
[2016-10-20 16:15] VITALS: BP 96/62
[2016-10-20 20:56] VITALS: BP 141/77
[2016-10-20] MEDS ORDERED: LORazepam Inj 2mg/ml 1ml IV PRN (21:30)
--- NOTE | 2016-10-20 21:50 | General Progress Note ---
Assessment/Plan Assessment/Plan Assessment - abnormal LFT - resolved - loose stools - COPD - respiratory failure - s/p trach and PEG - dysphagia - OB (+) - possibly due to bleeding at time of PEG or Trach. Need to repeat in few weeks. - Anemia Recommendations - check C Diff --> neg - follow LFT periodically - elevate HOB - GT care - repeat stool OB in 2-3 weeks - s/p EGD this admission and recent colonoscopy at [place] Subjective Allergies: Coded Allergies: No Known Allergies (Unverified , 06/17/16) Subjective above noted tolerating TF comfortable Objective Last 24 Hour Vital Signs Date Time Temp Pulse Resp B/P Pulse Ox O2 Delivery O2 Flow Rate FiO2 10/20/16 21:08 74 16 40 10/20/16 20:56 98.4 80 17 141/77 100 Mechanical Ventilator 40 10/20/16 20:00 40 10/20/16 19:35 83 17 40 10/20/16 19:15 79 10/20/16 17:42 40 10/20/16 17:42 85 18 100 Mechanical Ventilator 40 10/20/16 17:19 88 16 40 10/20/16 16:15 97.9 76 21 96/62 100 Mechanical Ventilator 10/20/16 16:00 89 10/20/16 15:05 89 16 40 10/20/16 13:15 91 16 100 Mechanical Ventilator 40 10/20/16 13:05 86 16 40 10/20/16 13:05 40 10/20/16 13:05 87 18 100 Mechanical Ventilator 40 10/20/16 12:00 74 10/20/16 12:00 97.3 16 99/62 98 Mechanical Ventilator 40 10/20/16 12:00 40 10/20/16 11:01 88 16 40 10/20/16 09:19 92 16 100 Mechanical Ventilator 40 10/20/16 09:10 88 18 100 Mechanical Ventilator 40 10/20/16 09:10 40 10/20/16 09:10 92 16 40 10/20/16 08:19 98.2 78 17 90/58 100 Mechanical Ventilator 40 10/20/16 08:00 72 10/20/16 08:00 40 10/20/16 07:11 78 16 40 10/20/16 05:02 77 16 40 10/20/16 04:00 10.0 40 10/20/16 04:00 97.0 16 102/75 98 Mechanical Ventilator 40 10/20/16 04:00 66 10/20/16 02:50 80 16 40 10/20/16 01:00 76 18 40 10/20/16 00:00 85 10/20/16 00:00 98.0 74 17 105/66 98 10/19/16 22:35 75 16 40 Intake and Output 10/19/16 10/20/16 19:00 07:00 Intake Total 980 ml 1640 ml Output Total 450 ml Balance 530 ml 1640 ml Intake Oral 720 ml Free Water 200 ml 100 ml Tube Feeding 780 ml 720 ml Other 100 ml Output Urine Total 450 ml # Bowel Movements 2 Laboratory Tests 10/20/16 05:10: White Blood Count 4.6L, Red Blood Count 3.27L, Hemoglobin 9.0L, Hematocrit 30.3L , Mean Corpuscular Volume 93, Mean Corpuscular Hemoglobin 27.6, Mean Corpuscular Hemoglobin Concent 29.8L, Red Cell Distribution Width 16.0H, Platelet Count 417, Mean Platelet Volume 6.1L, Neutrophils (%) (Auto) 57.9, Lymphocytes (%) (Auto) 24.3, Monocytes (%) (Auto) 12.6H, Eosinophils (%) (Auto) 3.7H, Basophils (%) (Auto) 1.5, Sodium Level 139, Potassium Level 4.5, Chloride Level 95L, Carbon Dioxide Level 37H, Anion Gap 7, Blood Urea Nitrogen 18, Creatinine 0.5L, Estimat Glomerular Filtration Rate > 60, Glucose Level 115H, Calcium Level 9.1 Height (Feet): 6 Height (Inches): 2.00 Weight (Pounds): 126 Objective Elderly AA man NCAT (+) trach Coarse BS RRR soft NT abdomen, (+) GT responsive ROSEMARY BURROUGHS Oct 20, 2016 21:50
[2016-10-21] VITALS: BP 109/60
[2016-10-21 04:30] VITALS: BP 103/67
[2016-10-21 04:55] LABS: BASOPHILS % (AUTO) 1.6 % (0.0-2.0); EOSINOPHILS % (AUTO) 2.8 % (0.0-3.0); LYMPHOCYTES % (AUTO) 31.4 % (20.0-45.0); MEAN CORPUSCULAR HEMOGLOBIN 27.7 PG (27.0-31.0); MEAN CORPUSCULAR HGB CONC 30.3 G/DL (32.0-36.0); MEAN CORPUSCULAR VOLUME 91 FL (80-99); MEAN PLATELET VOLUME 6.4 FL (6.5-10.1); MONOCYTES % (AUTO) 11.9 % (1.0-10.0); NEUTROPHILS % (AUTO) 52.3 % (45.0-75.0); PLATELET COUNT 367 K/UL (150-450); RED BLOOD COUNT 3.28 M/UL (4.70-6.10); RED CELL DISTRIBUTION WIDTH 15.8 % (11.6-14.8); WHITE BLOOD COUNT 4.3 K/UL (4.8-10.8)
[2016-10-21 05:19] LABS: ANION GAP 7 (5-15); CALCIUM 8.7 mg/dL (8.6-10.2); CARBON DIOXIDE 35 mEQ/L (20-30); CHLORIDE 99 mEQ/L (98-107); CREATININE 0.4 mg/dL (0.7-1.2); GLOMERULAR FILTRATION RATE > 60 mL/min (>60); HEMOLYSIS 0; SODIUM 141 mEQ/L (135-145)
[2016-10-21] MEDS: NovoLOG Insulin Flexpen SUBQ SCH ×3 (06:00→18:00)
[2016-10-21 08:00] VITALS: BP 98/70
[2016-10-21] MEDS: Pantoprazole Inj IVP SCH (08:41)
--- NOTE | 2016-10-21 09:33 | General Progress Note ---
Assessment/Plan Assessment/Plan Assessment - abnormal LFT - resolved - loose stools - COPD - respiratory failure - s/p trach and PEG - dysphagia - OB (+) - possibly due to bleeding at time of PEG or Trach. Need to repeat in few weeks. - Anemia Recommendations - check C Diff --> neg - follow LFT periodically - elevate HOB - GT care - repeat stool OB in 2-3 weeks - s/p EGD this admission and recent colonoscopy at [place] - will sign off - please re-consult PRN Subjective Allergies: Coded Allergies: No Known Allergies (Unverified , 06/17/16) Subjective above noted tolerating TF comfortable no complaints Objective Last 24 Hour Vital Signs Date Time Temp Pulse Resp B/P Pulse Ox O2 Delivery O2 Flow Rate FiO2 10/21/16 08:00 97.8 77 16 98/70 100 Mechanical Ventilator 40 10/21/16 08:00 40 10/21/16 07:11 81 16 40 10/21/16 05:28 80 16 40 10/21/16 04:30 98.0 85 17 103/67 98 Mechanical Ventilator 40 10/21/16 04:00 40 10/21/16 03:39 84 10/21/16 03:08 79 16 40 10/21/16 00:51 79 16 40 10/21/16 00:00 98.0 85 20 109/60 100 Mechanical Ventilator 40 10/21/16 00:00 40 10/20/16 23:43 83 10/20/16 22:57 77 16 100 Mechanical Ventilator 40 10/20/16 22:47 74 16 40 10/20/16 22:47 74 16 100 Mechanical Ventilator 40 10/20/16 22:47 40 10/20/16 21:08 74 16 40 10/20/16 20:56 98.4 80 17 141/77 100 Mechanical Ventilator 40 10/20/16 20:00 40 10/20/16 19:35 83 17 40 10/20/16 19:15 79 10/20/16 17:42 40 10/20/16 17:42 85 18 100 Mechanical Ventilator 40 10/20/16 17:19 88 16 40 10/20/16 16:15 97.9 76 21 96/62 100 Mechanical Ventilator 10/20/16 16:00 89 10/20/16 15:05 89 16 40 10/20/16 13:15 91 16 100 Mechanical Ventilator 40 10/20/16 13:05 86 16 40 10/20/16 13:05 40 10/20/16 13:05 87 18 100 Mechanical Ventilator 40 10/20/16 12:00 74 10/20/16 12:00 97.3 16 99/62 98 Mechanical Ventilator 40 10/20/16 12:00 40 10/20/16 11:01 88 16 40 Intake and Output 10/20/16 10/21/16 19:00 07:00 Intake Total 820 ml 160 ml Output Total 1400 ml 400 ml Balance -580 ml -240 ml Free Water 100 ml 100 ml Tube Feeding 720 ml 60 ml Output Urine Total 1400 ml 400 ml # Voids 1 # Bowel Movements 1 Laboratory Tests 10/21/16 03:25: White Blood Count 4.3L, Red Blood Count 3.28L, Hemoglobin 9.1L, Hematocrit 30.0L , Mean Corpuscular Volume 91, Mean Corpuscular Hemoglobin 27.7, Mean Corpuscular Hemoglobin Concent 30.3L, Red Cell Distribution Width 15.8H, Platelet Count 367, Mean Platelet Volume 6.4L, Neutrophils (%) (Auto) 52.3, Lymphocytes (%) (Auto) 31.4, Monocytes (%) (Auto) 11.9H, Eosinophils (%) (Auto) 2.8, Basophils (%) (Auto) 1.6, Sodium Level 141, Potassium Level 4.0, Chloride Level 99, Carbon Dioxide Level 35H, Anion Gap 7, Blood Urea Nitrogen 14, Creatinine 0.4L, Estimat Glomerular Filtration Rate > 60, Glucose Level 87, Calcium Level 8.7 Height (Feet): 6 Height (Inches): 2.00 Weight (Pounds): 126 Objective Elderly AA man NCAT (+) trach Coarse BS RRR soft NT abdomen, (+) GT responsive ROSEMARY BURROUGHS Oct 21, 2016 09:33
--- NOTE | 2016-10-21 11:43 | Infectious Diseases Prog Note ---
Assessment/Plan Assessment/Plan ASSESSMENT: 66 y/o male with: // COPD exacerbation - delayed SCx 4+ PSA pt has increased secretions - CXR 09/27: Lungs are hyperinflated. No new infiltrates - negative: influenza // Leukocytosis - SP ( post op, 10/01 SP steroids ) // Diarrhea x 1 resolved C Diff Neg // Febrile low grade // HIV and Hep B/C : neg // - PEG 10/04 // Acute VDRF - intubated 09/20, 10/03 SP trach // Severe pulmonary HTN / grade I diastolic dysfunction / mod TR // Pulmonary nodules // Chronic RLE DVT // Tobacco abuse // [facility] resident // Negative MRSA, VRE screens // NKDA // Full Code PLAN: - Monitor pt off of AB Rx ( 10/17 SP Ceftazidime d# 14 ) ( 10/13 SP Jairon nebs d# 14 ) ( 10/11 SP Flagyl d# 10 ) ( 10/04 SP oral Vanco d# 3 ) ( 09/24 SP amikacin, invanz d# 5 / 5 ) ( 09/21 SP IV vancomycin d# 2 ) - taper steroids per pulm - monitor CBC, temperatures - monitor BMP - monitor CXR - vent support, wean as tolerated. Subjective Constitutional: Denies: anorexia, chills, drenching sweats, fatigue, fever, no symptoms, other Allergies: Coded Allergies: No Known Allergies (Unverified , 06/17/16) Objective Vital Signs Last 24 Hour Vital Signs Date Time Temp Pulse Resp B/P Pulse Ox O2 Delivery O2 Flow Rate FiO2 10/21/16 10:42 83 16 40 10/21/16 09:21 82 16 40 10/21/16 09:00 78 10/21/16 08:00 97.8 77 16 98/70 100 Mechanical Ventilator 40 10/21/16 08:00 40 10/21/16 07:11 81 16 40 10/21/16 05:28 80 16 40 10/21/16 04:30 98.0 85 17 103/67 98 Mechanical Ventilator 40 10/21/16 04:00 40 10/21/16 03:39 84 10/21/16 03:08 79 16 40 10/21/16 00:51 79 16 40 10/21/16 00:00 98.0 85 20 109/60 100 Mechanical Ventilator 40 10/21/16 00:00 40 10/20/16 23:43 83 10/20/16 22:57 77 16 100 Mechanical Ventilator 40 10/20/16 22:47 74 16 40 10/20/16 22:47 74 16 100 Mechanical Ventilator 40 10/20/16 22:47 40 10/20/16 21:08 74 16 40 10/20/16 20:56 98.4 80 17 141/77 100 Mechanical Ventilator 40 10/20/16 20:00 40 10/20/16 19:35 83 17 40 10/20/16 19:15 79 10/20/16 17:42 40 10/20/16 17:42 85 18 100 Mechanical Ventilator 40 10/20/16 17:19 88 16 40 10/20/16 16:15 97.9 76 21 96/62 100 Mechanical Ventilator 10/20/16 16:00 89 10/20/16 15:05 89 16 40 10/20/16 13:15 91 16 100 Mechanical Ventilator 40 10/20/16 13:05 86 16 40 10/20/16 13:05 40 10/20/16 13:05 87 18 100 Mechanical Ventilator 40 10/20/16 12:00 74 10/20/16 12:00 97.3 16 99/62 98 Mechanical Ventilator 40 10/20/16 12:00 40 Height (Feet): 6 Height (Inches): 2.00 Weight (Pounds): 126 HEENT: atraumatic Respiratory/Chest: no respiratory distress Cardiovascular: regularly irregular Abdomen: soft, non tender Laboratory Tests Test 10/21/16 03:25 White Blood Count 4.3 K/UL (4.8-10.8) L Red Blood Count 3.28 M/UL (4.70-6.10) L Hemoglobin 9.1 G/DL (14.2-18.0) L Hematocrit 30.0 % (42.0-52.0) L Mean Corpuscular Volume 91 FL (80-99) Mean Corpuscular Hemoglobin 27.7 PG (27.0-31.0) Mean Corpuscular Hemoglobin Concent 30.3 G/DL (32.0-36.0) L Red Cell Distribution Width 15.8 % (11.6-14.8) H Platelet Count 367 K/UL (150-450) Mean Platelet Volume 6.4 FL (6.5-10.1) L Neutrophils (%) (Auto) 52.3 % (45.0-75.0) Lymphocytes (%) (Auto) 31.4 % (20.0-45.0) Monocytes (%) (Auto) 11.9 % (1.0-10.0) H Eosinophils (%) (Auto) 2.8 % (0.0-3.0) Basophils (%) (Auto) 1.6 % (0.0-2.0) Sodium Level 141 mEQ/L (135-145) Potassium Level 4.0 mEQ/L (3.4-4.9) Chloride Level 99 mEQ/L (98-107) Carbon Dioxide Level 35 mEQ/L (20-30) H Anion Gap 7 (5-15) Blood Urea Nitrogen 14 mg/dL (7-23) Creatinine 0.4 mg/dL (0.7-1.2) L Estimat Glomerular Filtration Rate > 60 mL/min (>60) Glucose Level 87 mg/dL (74-106) Calcium Level 8.7 mg/dL (8.6-10.2) Current Medications Medications (Trade) Dose Ordered Sig/Shraddha Route PRN Reason Start Time Stop Time Status Last Admin Dose Admin Acetaminophen (Tylenol) 650 mg Q4H PRN ORAL fever>100.5 10/05/16 11:30 11/04/16 11:29 Albuterol/ Ipratropium (DuoNeb 0.5-3(2.5)mg/3ml) 3 ml Q4H PRN HHN Shortness of Breath 10/19/16 10:00 10/24/16 09:59 10/20/16 22:47 Dextrose (Dextrose 50%) STAT PRN IV Hypoglycemia 10/05/16 11:30 11/04/16 11:29 Insulin Aspart (NovoLOG) start when feeding started Q6HR SUBQ 10/05/16 12:00 11/04/16 11:59 10/18/16 00:15 Lorazepam (Ativan 2mg/ml 1ml) 1 mg Q4H PRN IV For Anxiety 10/20/16 21:30 10/27/16 21:29 10/20/16 23:20 Ondansetron HCl (Zofran) 4 mg Q6H PRN IVP Nausea & Vomiting 4/1/17 11:30 11/04/16 11:29 Pantoprazole (Protonix) 40 mg DAILY IVP 10/06/16 09:00 11/05/16 08:59 10/21/16 08:41 Polyethylene Glycol (Miralax) 17 gm DAILYPRN PRN ORAL Constipation 10/05/16 11:30 11/04/16 11:29 KIMBERLEE HINKLE M.D. Oct 21, 2016 11:43
[2016-10-21 12:00] VITALS: BP 99/65
--- NOTE | 2016-10-21 12:36 | Diagnostic Imaging Report ---
Indication: SOB Technique: One view of the chest Comparison: none Findings: Lungs and pleural spaces are clear. Heart size is normal tracheostomy remains. Hyperinflation persists Impression: No acute process. Findings as noted, stable since 10/08/2016
[2016-10-21] MEDS: DuoNeb 0.5-3(2.5)mg/3ml neb HHN PRN ×2 (13:05→17:19)
--- NOTE | 2016-10-21 13:07 | Pulmonology Progress Note ---
Assessment/Plan Problems: (1) Respiratory failure (2) COPD exacerbation (3) Emphysema of lung Assessment/Plan improving tolerating diet weaning trials stable for transfer to a subacute facility d/w pts daughter awaiting transfer to a subacute facility. Subjective ROS Limited/Unobtainable: No Constitutional: Reports: no symptoms Respiratory: Reports: no symptoms Cardiovascular: Reports: no symptoms Gastrointestinal/Abdominal: Reports: no symptoms Genitourinary: Reports: no symptoms Neurologic: Reports: no symptoms Psychiatric: Reports: no symptoms Skin: Reports: no symptoms Allergies: Coded Allergies: No Known Allergies (Unverified , 06/17/16) Objective Last 24 Hour Vital Signs Date Time Temp Pulse Resp B/P Pulse Ox O2 Delivery O2 Flow Rate FiO2 10/21/16 10:42 83 16 40 10/21/16 09:21 82 16 40 10/21/16 09:00 78 10/21/16 08:00 97.8 77 16 98/70 100 Mechanical Ventilator 40 10/21/16 08:00 40 10/21/16 07:11 81 16 40 10/21/16 05:28 80 16 40 10/21/16 04:30 98.0 85 17 103/67 98 Mechanical Ventilator 40 10/21/16 04:00 40 10/21/16 03:39 84 10/21/16 03:08 79 16 40 10/21/16 00:51 79 16 40 10/21/16 00:00 98.0 85 20 109/60 100 Mechanical Ventilator 40 10/21/16 00:00 40 10/20/16 23:43 83 10/20/16 22:57 77 16 100 Mechanical Ventilator 40 10/20/16 22:47 74 16 40 10/20/16 22:47 74 16 100 Mechanical Ventilator 40 10/20/16 22:47 40 10/20/16 21:08 74 16 40 10/20/16 20:56 98.4 80 17 141/77 100 Mechanical Ventilator 40 10/20/16 20:00 40 10/20/16 19:35 83 17 40 10/20/16 19:15 79 10/20/16 17:42 40 10/20/16 17:42 85 18 100 Mechanical Ventilator 40 10/20/16 17:19 88 16 40 10/20/16 16:15 97.9 76 21 96/62 100 Mechanical Ventilator 10/20/16 16:00 89 10/20/16 15:05 89 16 40 10/20/16 13:15 91 16 100 Mechanical Ventilator 40 Intake and Output 10/20/16 10/21/16 19:00 07:00 Intake Total 820 ml 160 ml Output Total 1400 ml 400 ml Balance -580 ml -240 ml Free Water 100 ml 100 ml Tube Feeding 720 ml 60 ml Output Urine Total 1400 ml 400 ml # Voids 1 # Bowel Movements 1 Objective Status: awake HEENT: atraumatic, normocephalic Lungs: clear, decreased breath sounds Heart: HR/BP stable Abdomen: soft, non-tender Extremities: no C/C/E, edema Laboratory Tests 10/21/16 03:25: White Blood Count 4.3L, Red Blood Count 3.28L, Hemoglobin 9.1L, Hematocrit 30.0L , Mean Corpuscular Volume 91, Mean Corpuscular Hemoglobin 27.7, Mean Corpuscular Hemoglobin Concent 30.3L, Red Cell Distribution Width 15.8H, Platelet Count 367, Mean Platelet Volume 6.4L, Neutrophils (%) (Auto) 52.3, Lymphocytes (%) (Auto) 31.4, Monocytes (%) (Auto) 11.9H, Eosinophils (%) (Auto) 2.8, Basophils (%) (Auto) 1.6, Sodium Level 141, Potassium Level 4.0, Chloride Level 99, Carbon Dioxide Level 35H, Anion Gap 7, Blood Urea Nitrogen 14, Creatinine 0.4L, Estimat Glomerular Filtration Rate > 60, Glucose Level 87, Calcium Level 8.7 Current Medications Medications (Trade) Dose Ordered Sig/Shraddha Route PRN Reason Start Time Stop Time Status Last Admin Dose Admin Acetaminophen (Tylenol) 650 mg Q4H PRN ORAL fever>100.5 10/05/16 11:30 11/04/16 11:29 Albuterol/ Ipratropium (DuoNeb 0.5-3(2.5)mg/3ml) 3 ml Q4H PRN HHN Shortness of Breath 10/19/16 10:00 10/24/16 09:59 10/20/16 22:47 Dextrose (Dextrose 50%) STAT PRN IV Hypoglycemia 10/05/16 11:30 11/04/16 11:29 Insulin Aspart (NovoLOG) start when feeding started Q6HR SUBQ 10/05/16 12:00 11/04/16 11:59 10/21/16 12:51 Lorazepam (Ativan 2mg/ml 1ml) 1 mg Q4H PRN IV For Anxiety 10/20/16 21:30 10/27/16 21:29 10/20/16 23:20 Ondansetron HCl (Zofran) 4 mg Q6H PRN IVP Nausea & Vomiting 10/05/16 11:30 11/04/16 11:29 Pantoprazole (Protonix) 40 mg DAILY IVP 10/06/16 09:00 11/05/16 08:59 10/21/16 08:41 Polyethylene Glycol (Miralax) 17 gm DAILYPRN PRN ORAL Constipation 10/05/16 11:30 11/04/16 11:29 REN WRIGHT Oct 21, 2016 13:07
--- NOTE | 2016-10-21 15:11 | Internal Med Progress Note ---
Subjective Date of Service: Oct 21, 2016 Physician Name Tadeo Verdin Attending Physician Steve Rader MD Current Medications Medications (Trade) Dose Ordered Sig/Shraddha Route PRN Reason Start Time Stop Time Status Last Admin Dose Admin Acetaminophen (Tylenol) 650 mg Q4H PRN ORAL fever>100.5 10/05/16 11:30 11/04/16 11:29 Albuterol/ Ipratropium (DuoNeb 0.5-3(2.5)mg/3ml) 3 ml Q4H PRN HHN Shortness of Breath 10/19/16 10:00 10/24/16 09:59 10/21/16 13:05 Dextrose (Dextrose 50%) STAT PRN IV Hypoglycemia 10/05/16 11:30 11/04/16 11:29 Insulin Aspart (NovoLOG) start when feeding started Q6HR SUBQ 10/05/16 12:00 11/04/16 11:59 10/21/16 12:51 Lorazepam (Ativan 2mg/ml 1ml) 1 mg Q4H PRN IV For Anxiety 10/20/16 21:30 10/27/16 21:29 10/20/16 23:20 Ondansetron HCl (Zofran) 4 mg Q6H PRN IVP Nausea & Vomiting 10/05/16 11:30 11/04/16 11:29 Pantoprazole (Protonix) 40 mg DAILY IVP 10/06/16 09:00 11/05/16 08:59 10/21/16 08:41 Polyethylene Glycol (Miralax) 17 gm DAILYPRN PRN ORAL Constipation 10/05/16 11:30 11/04/16 11:29 Allergies: Coded Allergies: No Known Allergies (Unverified , 06/17/16) ROS Limited/Unobtainable: Yes Subjective 66 YO M admitted with respiratory failure. JORDAN. Intubated and sedated. Await transfer to [facility]. Cover for Int Med-Dr Rader. Objective Last Vital Signs Date Time Temp Pulse Resp B/P Pulse Ox O2 Delivery O2 Flow Rate FiO2 10/21/16 13:05 87 16 100 Mechanical Ventilator 40 10/21/16 12:00 97.8 99/65 10/20/16 08:00 Laboratory Tests Test 10/21/16 03:25 White Blood Count 4.3 K/UL (4.8-10.8) L Red Blood Count 3.28 M/UL (4.70-6.10) L Hemoglobin 9.1 G/DL (14.2-18.0) L Hematocrit 30.0 % (42.0-52.0) L Mean Corpuscular Volume 91 FL (80-99) Mean Corpuscular Hemoglobin 27.7 PG (27.0-31.0) Mean Corpuscular Hemoglobin Concent 30.3 G/DL (32.0-36.0) L Red Cell Distribution Width 15.8 % (11.6-14.8) H Platelet Count 367 K/UL (150-450) Mean Platelet Volume 6.4 FL (6.5-10.1) L Neutrophils (%) (Auto) 52.3 % (45.0-75.0) Lymphocytes (%) (Auto) 31.4 % (20.0-45.0) Monocytes (%) (Auto) 11.9 % (1.0-10.0) H Eosinophils (%) (Auto) 2.8 % (0.0-3.0) Basophils (%) (Auto) 1.6 % (0.0-2.0) Sodium Level 141 mEQ/L (135-145) Potassium Level 4.0 mEQ/L (3.4-4.9) Chloride Level 99 mEQ/L (98-107) Carbon Dioxide Level 35 mEQ/L (20-30) H Anion Gap 7 (5-15) Blood Urea Nitrogen 14 mg/dL (7-23) Creatinine 0.4 mg/dL (0.7-1.2) L Estimat Glomerular Filtration Rate > 60 mL/min (>60) Glucose Level 87 mg/dL (74-106) Calcium Level 8.7 mg/dL (8.6-10.2) Intake and Output 10/20/16 10/21/16 19:00 07:00 Intake Total 820 ml 160 ml Output Total 1400 ml 400 ml Balance -580 ml -240 ml Free Water 100 ml 100 ml Tube Feeding 720 ml 60 ml Output Urine Total 1400 ml 400 ml # Voids 1 # Bowel Movements 1 Objective General Appearance: moderate distress, thin EENT: PERRL/EOMI, normal ENT inspection Neck: non-tender, normal alignment, supple Cardiovascular: normal peripheral pulses, normal rate, regular rhythm, no gallop/murmur, no JVD Respiratory/Chest: Trach; Mech Vent; trach; respiratory distress, crackles/ rales, rhonchi - bilaterally, expiratory wheezing Abdomen: non tender, soft, no organomegaly, no mass, decreased bowel sounds Extremities: normal range of motion Skin: normal pigmentation, warm/dry Assessment/Plan Problem List: (1) Lung nodule (2) DVT (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 (3) Acute respiratory failure Assessment & Plan: S/P tracheostomy 10/03/16. Cont vent per pulmonary (4) COPD exacerbation Assessment & Plan: Continue duoneb. Continue vent per pulmonary. (5) Pneumonia Assessment & Plan: Observe off antibiotics per ID (6) Leukocytosis Assessment & Plan: Continue off antibiotics per ID. (7) Dysphagia Assessment & Plan: See GI consult- S/P PEG 10/04/16. Status: stable Assessment/Plan Discharge Planning: shelter facility when bed available-see soc work note. TADEO VERDIN Oct 21, 2016 15:11
[2016-10-21 16:00] VITALS: BP 96/67
[2016-10-21 20:00] VITALS: BP 91/69
[2016-10-22] VITALS: BP 91/71
[2016-10-22 04:00] VITALS: BP 93/71
[2016-10-22 05:07] LABS: EOSINOPHILS % (AUTO) 3.2 % (0.0-3.0); LYMPHOCYTES % (AUTO) 35.3 % (20.0-45.0); MEAN CORPUSCULAR HEMOGLOBIN 27.5 PG (27.0-31.0); MEAN CORPUSCULAR VOLUME 92 FL (80-99); MEAN PLATELET VOLUME 6.2 FL (6.5-10.1); NEUTROPHILS % (AUTO) 45.5 % (45.0-75.0); PLATELET COUNT 371 K/UL (150-450); RED BLOOD COUNT 3.25 M/UL (4.70-6.10); RED CELL DISTRIBUTION WIDTH 15.7 % (11.6-14.8); WHITE BLOOD COUNT 3.9 K/UL (4.8-10.8)
[2016-10-22 05:21] LABS: ANION GAP 10 (5-15); CARBON DIOXIDE 32 mEQ/L (20-30); CHLORIDE 98 mEQ/L (98-107); CREATININE 0.4 mg/dL (0.7-1.2); GLOMERULAR FILTRATION RATE > 60 mL/min (>60); HEMOLYSIS 1; POTASSIUM 4.1 mEQ/L (3.4-4.9); SODIUM 140 mEQ/L (135-145)
[2016-10-22] MEDS: NovoLOG Insulin Flexpen SUBQ SCH ×4 (06:40→17:44)
[2016-10-22 08:00] VITALS: BP 93/74
[2016-10-22] MEDS: DuoNeb 0.5-3(2.5)mg/3ml neb HHN PRN ×3 (08:00→15:41)
[2016-10-22] MEDS: Pantoprazole Inj IVP SCH (08:41)
--- NOTE | 2016-10-22 11:47 | Pulmonology Progress Note ---
Assessment/Plan Problems: (1) Respiratory failure (2) COPD exacerbation (3) Emphysema of lung Assessment/Plan improving tolerating diet weaning trials stable for transfer to a subacute facility awaiting transfer to a subacute facility. Subjective ROS Limited/Unobtainable: No Allergies: Coded Allergies: No Known Allergies (Unverified , 06/17/16) Objective Last 24 Hour Vital Signs Date Time Temp Pulse Resp B/P Pulse Ox O2 Delivery O2 Flow Rate FiO2 10/22/16 11:07 82 17 40 10/22/16 11:07 40 10/22/16 11:07 82 17 100 Mechanical Ventilator 40 10/22/16 11:07 82 17 100 Mechanical Ventilator 10.0 40 10/22/16 09:12 87 21 40 10/22/16 08:02 92 18 100 Mechanical Ventilator 40 10/22/16 08:02 40 10/22/16 08:00 96.6 83 16 93/74 100 Mechanical Ventilator 40 10/22/16 08:00 91 17 100 Mechanical Ventilator 40 10/22/16 08:00 40 10/22/16 08:00 88 10/22/16 06:30 91 17 40 10/22/16 04:50 80 16 40 10/22/16 04:00 40 10/22/16 04:00 98.2 81 20 93/71 100 Mechanical Ventilator 40 10/22/16 03:21 83 10/22/16 02:51 82 16 40 10/22/16 01:08 82 16 40 10/22/16 00:00 98.8 85 18 91/71 100 Mechanical Ventilator 40 10/22/16 00:00 40 10/21/16 23:32 78 10/21/16 22:41 87 17 40 10/21/16 20:41 72 16 40 10/21/16 20:00 97.0 72 17 91/69 100 Mechanical Ventilator 40 10/21/16 20:00 40 10/21/16 19:30 82 17 40 10/21/16 19:00 83 10/21/16 17:32 79 16 100 Mechanical Ventilator 40 10/21/16 17:20 84 16 100 Mechanical Ventilator 40 10/21/16 17:17 84 16 40 10/21/16 16:00 85 10/21/16 16:00 40 10/21/16 16:00 97.0 83 17 96/67 100 Mechanical Ventilator 40 10/21/16 15:21 82 16 40 10/21/16 13:05 87 16 100 Mechanical Ventilator 40 10/21/16 13:05 81 16 40 10/21/16 13:05 40 10/21/16 12:00 93 10/21/16 12:00 97.8 91 19 99/65 100 Mechanical Ventilator 40 10/21/16 12:00 40 Intake and Output 10/21/16 10/22/16 19:00 07:00 Intake Total 160 ml 100 ml Output Total 300 ml 450 ml Balance -140 ml -350 ml Free Water 100 ml 100 ml Tube Feeding 60 ml Output Urine Total 300 ml 450 ml Objective Status: awake HEENT: atraumatic, normocephalic Lungs: clear, decreased breath sounds Heart: HR/BP stable Abdomen: soft, non-tender Extremities: no C/C/E, edema Laboratory Tests 10/22/16 04:25: White Blood Count 3.9L, Red Blood Count 3.25L, Hemoglobin 8.9L, Hematocrit 29.8L , Mean Corpuscular Volume 92, Mean Corpuscular Hemoglobin 27.5, Mean Corpuscular Hemoglobin Concent 30.0L, Red Cell Distribution Width 15.7H, Platelet Count 371, Mean Platelet Volume 6.2L, Neutrophils (%) (Auto) 45.5, Lymphocytes (%) (Auto) 35.3, Monocytes (%) (Auto) 14.0H, Eosinophils (%) (Auto) 3.2H, Basophils (%) (Auto) 2.0, Sodium Level 140, Potassium Level 4.1, Chloride Level 98, Carbon Dioxide Level 32H, Anion Gap 10, Blood Urea Nitrogen 11, Creatinine 0.4L, Estimat Glomerular Filtration Rate > 60, Glucose Level 85, Calcium Level 9.0 Current Medications Medications (Trade) Dose Ordered Sig/Shraddha Route PRN Reason Start Time Stop Time Status Last Admin Dose Admin Acetaminophen (Tylenol) 650 mg Q4H PRN ORAL fever>100.5 10/05/16 11:30 11/04/16 11:29 Albuterol/ Ipratropium (DuoNeb 0.5-3(2.5)mg/3ml) 3 ml Q4H PRN HHN Shortness of Breath 10/19/16 10:00 10/24/16 09:59 10/22/16 11:07 Dextrose (Dextrose 50%) STAT PRN IV Hypoglycemia 10/05/16 11:30 11/04/16 11:29 Insulin Aspart (NovoLOG) start when feeding started Q6HR SUBQ 10/05/16 12:00 11/04/16 11:59 10/21/16 12:51 Lorazepam (Ativan 2mg/ml 1ml) 1 mg Q4H PRN IV For Anxiety 10/20/16 21:30 10/27/16 21:29 10/20/16 23:20 Ondansetron HCl (Zofran) 4 mg Q6H PRN IVP Nausea & Vomiting 10/05/16 11:30 11/04/16 11:29 Pantoprazole (Protonix) 40 mg DAILY IVP 10/06/16 09:00 11/05/16 08:59 10/22/16 08:41 Polyethylene Glycol (Miralax) 17 gm DAILYPRN PRN ORAL Constipation 10/05/16 11:30 11/04/16 11:29 REN WRIGHT Oct 22, 2016 11:47
[2016-10-22 12:00] VITALS: BP 100/67
--- NOTE | 2016-10-22 12:02 | Infectious Diseases Prog Note ---
Assessment/Plan Assessment/Plan ASSESSMENT: 66 y/o male with: // COPD exacerbation - delayed SCx 4+ PSA pt has increased secretions - CXR 09/27: Lungs are hyperinflated. No new infiltrates - negative: influenza // Leukocytosis - SP ( post op, 10/01 SP steroids ) // Diarrhea x 1 resolved C Diff Neg // Febrile low grade // HIV and Hep B/C : neg // - PEG 10/04 // Acute VDRF - intubated 09/20, 10/03 SP trach // Severe pulmonary HTN / grade I diastolic dysfunction / mod TR // Pulmonary nodules // Chronic RLE DVT // Tobacco abuse // [facility] resident // Negative MRSA, VRE screens // NKDA // Full Code PLAN: - Monitor pt off of AB Rx ( 10/17 SP Ceftazidime d# 14 ) ( 10/13 SP Jairon nebs d# 14 ) ( 10/11 SP Flagyl d# 10 ) ( 10/04 SP oral Vanco d# 3 ) ( 09/24 SP amikacin, invanz d# 5 / 5 ) ( 09/21 SP IV vancomycin d# 2 ) - taper steroids per pulm - monitor CBC, temperatures - monitor BMP - monitor CXR - vent support, wean as tolerated. Subjective Constitutional: Denies: anorexia, chills, drenching sweats, fatigue, fever, no symptoms, other Allergies: Coded Allergies: No Known Allergies (Unverified , 06/17/16) Objective Vital Signs Last 24 Hour Vital Signs Date Time Temp Pulse Resp B/P Pulse Ox O2 Delivery O2 Flow Rate FiO2 10/22/16 11:07 82 17 40 10/22/16 11:07 40 10/22/16 11:07 82 17 100 Mechanical Ventilator 40 10/22/16 11:07 82 17 100 Mechanical Ventilator 10.0 40 10/22/16 09:12 87 21 40 10/22/16 08:02 92 18 100 Mechanical Ventilator 40 10/22/16 08:02 40 10/22/16 08:00 96.6 83 16 93/74 100 Mechanical Ventilator 40 10/22/16 08:00 91 17 100 Mechanical Ventilator 40 10/22/16 08:00 40 10/22/16 08:00 88 10/22/16 06:30 91 17 40 10/22/16 04:50 80 16 40 10/22/16 04:00 40 10/22/16 04:00 98.2 81 20 93/71 100 Mechanical Ventilator 40 10/22/16 03:21 83 10/22/16 02:51 82 16 40 10/22/16 01:08 82 16 40 10/22/16 00:00 98.8 85 18 91/71 100 Mechanical Ventilator 40 10/22/16 00:00 40 10/21/16 23:32 78 10/21/16 22:41 87 17 40 10/21/16 20:41 72 16 40 10/21/16 20:00 97.0 72 17 91/69 100 Mechanical Ventilator 40 10/21/16 20:00 40 10/21/16 19:30 82 17 40 10/21/16 19:00 83 10/21/16 17:32 79 16 100 Mechanical Ventilator 40 10/21/16 17:20 84 16 100 Mechanical Ventilator 40 10/21/16 17:17 84 16 40 10/21/16 16:00 85 10/21/16 16:00 40 10/21/16 16:00 97.0 83 17 96/67 100 Mechanical Ventilator 40 10/21/16 15:21 82 16 40 10/21/16 13:05 87 16 100 Mechanical Ventilator 40 10/21/16 13:05 81 16 40 10/21/16 13:05 40 Height (Feet): 6 Height (Inches): 2.00 Weight (Pounds): 126 HEENT: atraumatic Respiratory/Chest: no accessory muscle use Cardiovascular: regularly irregular Abdomen: no mass Laboratory Tests Test 10/22/16 04:25 White Blood Count 3.9 K/UL (4.8-10.8) L Red Blood Count 3.25 M/UL (4.70-6.10) L Hemoglobin 8.9 G/DL (14.2-18.0) L Hematocrit 29.8 % (42.0-52.0) L Mean Corpuscular Volume 92 FL (80-99) Mean Corpuscular Hemoglobin 27.5 PG (27.0-31.0) Mean Corpuscular Hemoglobin Concent 30.0 G/DL (32.0-36.0) L Red Cell Distribution Width 15.7 % (11.6-14.8) H Platelet Count 371 K/UL (150-450) Mean Platelet Volume 6.2 FL (6.5-10.1) L Neutrophils (%) (Auto) 45.5 % (45.0-75.0) Lymphocytes (%) (Auto) 35.3 % (20.0-45.0) Monocytes (%) (Auto) 14.0 % (1.0-10.0) H Eosinophils (%) (Auto) 3.2 % (0.0-3.0) H Basophils (%) (Auto) 2.0 % (0.0-2.0) Sodium Level 140 mEQ/L (135-145) Potassium Level 4.1 mEQ/L (3.4-4.9) Chloride Level 98 mEQ/L (98-107) Carbon Dioxide Level 32 mEQ/L (20-30) H Anion Gap 10 (5-15) Blood Urea Nitrogen 11 mg/dL (7-23) Creatinine 0.4 mg/dL (0.7-1.2) L Estimat Glomerular Filtration Rate > 60 mL/min (>60) Glucose Level 85 mg/dL (74-106) Calcium Level 9.0 mg/dL (8.6-10.2) Current Medications Medications (Trade) Dose Ordered Sig/Shraddha Route PRN Reason Start Time Stop Time Status Last Admin Dose Admin Acetaminophen (Tylenol) 650 mg Q4H PRN ORAL fever>100.5 10/05/16 11:30 11/04/16 11:29 Albuterol/ Ipratropium (DuoNeb 0.5-3(2.5)mg/3ml) 3 ml Q4H PRN HHN Shortness of Breath 10/19/16 10:00 10/24/16 09:59 10/22/16 11:07 Dextrose (Dextrose 50%) STAT PRN IV Hypoglycemia 10/05/16 11:30 11/04/16 11:29 Insulin Aspart (NovoLOG) start when feeding started Q6HR SUBQ 10/05/16 12:00 11/04/16 11:59 10/21/16 12:51 Lorazepam (Ativan 2mg/ml 1ml) 1 mg Q4H PRN IV For Anxiety 10/20/16 21:30 10/27/16 21:29 10/20/16 23:20 Ondansetron HCl (Zofran) 4 mg Q6H PRN IVP Nausea & Vomiting 10/05/16 11:30 11/04/16 11:29 Pantoprazole (Protonix) 40 mg DAILY IVP 10/06/16 09:00 11/05/16 08:59 10/22/16 08:41 Polyethylene Glycol (Miralax) 17 gm DAILYPRN PRN ORAL Constipation 10/05/16 11:30 11/04/16 11:29 KIMBERLEE HINKLE M.D. Oct 22, 2016 12:02
[2016-10-22 16:00] VITALS: BP 94/70
--- NOTE | 2016-10-22 17:09 | Internal Med Progress Note ---
Subjective Date of Service: Oct 22, 2016 Physician Name Tadeo Verdin Attending Physician Steve Rader MD Current Medications Medications (Trade) Dose Ordered Sig/Shraddha Route PRN Reason Start Time Stop Time Status Last Admin Dose Admin Acetaminophen (Tylenol) 650 mg Q4H PRN ORAL fever>100.5 10/05/16 11:30 11/04/16 11:29 Albuterol/ Ipratropium (DuoNeb 0.5-3(2.5)mg/3ml) 3 ml Q4H PRN HHN Shortness of Breath 10/19/16 10:00 10/24/16 09:59 10/22/16 15:41 Dextrose (Dextrose 50%) STAT PRN IV Hypoglycemia 10/05/16 11:30 11/04/16 11:29 Insulin Aspart (NovoLOG) start when feeding started Q6HR SUBQ 10/05/16 12:00 11/04/16 11:59 10/21/16 12:51 Lorazepam (Ativan 2mg/ml 1ml) 1 mg Q4H PRN IV For Anxiety 10/20/16 21:30 10/27/16 21:29 10/20/16 23:20 Ondansetron HCl (Zofran) 4 mg Q6H PRN IVP Nausea & Vomiting 10/05/16 11:30 11/04/16 11:29 Pantoprazole (Protonix) 40 mg DAILY IVP 10/06/16 09:00 11/05/16 08:59 10/22/16 08:41 Polyethylene Glycol (Miralax) 17 gm DAILYPRN PRN ORAL Constipation 10/05/16 11:30 11/04/16 11:29 Allergies: Coded Allergies: No Known Allergies (Unverified , 06/17/16) ROS Limited/Unobtainable: Yes Subjective 66 YO M admitted with respiratory failure. JORDAN. Intubated and sedated. Await transfer to [facility]. Cover for Int Med-Dr Rader. Objective Last Vital Signs Date Time Temp Pulse Resp B/P Pulse Ox O2 Delivery O2 Flow Rate FiO2 10/22/16 16:50 82 16 40 10/22/16 15:45 100 Mechanical Ventilator 10/22/16 12:00 97.4 100/67 10/22/16 11:07 10.0 Laboratory Tests Test 10/22/16 04:25 White Blood Count 3.9 K/UL (4.8-10.8) L Red Blood Count 3.25 M/UL (4.70-6.10) L Hemoglobin 8.9 G/DL (14.2-18.0) L Hematocrit 29.8 % (42.0-52.0) L Mean Corpuscular Volume 92 FL (80-99) Mean Corpuscular Hemoglobin 27.5 PG (27.0-31.0) Mean Corpuscular Hemoglobin Concent 30.0 G/DL (32.0-36.0) L Red Cell Distribution Width 15.7 % (11.6-14.8) H Platelet Count 371 K/UL (150-450) Mean Platelet Volume 6.2 FL (6.5-10.1) L Neutrophils (%) (Auto) 45.5 % (45.0-75.0) Lymphocytes (%) (Auto) 35.3 % (20.0-45.0) Monocytes (%) (Auto) 14.0 % (1.0-10.0) H Eosinophils (%) (Auto) 3.2 % (0.0-3.0) H Basophils (%) (Auto) 2.0 % (0.0-2.0) Sodium Level 140 mEQ/L (135-145) Potassium Level 4.1 mEQ/L (3.4-4.9) Chloride Level 98 mEQ/L (98-107) Carbon Dioxide Level 32 mEQ/L (20-30) H Anion Gap 10 (5-15) Blood Urea Nitrogen 11 mg/dL (7-23) Creatinine 0.4 mg/dL (0.7-1.2) L Estimat Glomerular Filtration Rate > 60 mL/min (>60) Glucose Level 85 mg/dL (74-106) Calcium Level 9.0 mg/dL (8.6-10.2) Intake and Output 10/21/16 10/22/16 19:00 07:00 Intake Total 160 ml 100 ml Output Total 300 ml 450 ml Balance -140 ml -350 ml Free Water 100 ml 100 ml Tube Feeding 60 ml Output Urine Total 300 ml 450 ml Objective General Appearance: moderate distress, thin EENT: PERRL/EOMI, normal ENT inspection Neck: non-tender, normal alignment, supple Cardiovascular: normal peripheral pulses, normal rate, regular rhythm, no gallop/murmur, no JVD Respiratory/Chest: Trach; Mech Vent; trach; respiratory distress, crackles/ rales, rhonchi - bilaterally, expiratory wheezing Abdomen: non tender, soft, no organomegaly, no mass, decreased bowel sounds Extremities: normal range of motion Skin: normal pigmentation, warm/dry Assessment/Plan Problem List: (1) Lung nodule (2) DVT (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 (3) Acute respiratory failure Assessment & Plan: S/P tracheostomy 10/03/16. Cont vent per pulmonary (4) COPD exacerbation Assessment & Plan: Continue duoneb. Continue vent per pulmonary. (5) Pneumonia Assessment & Plan: Observe off antibiotics per ID (6) Leukocytosis Assessment & Plan: Continue off antibiotics per ID. (7) Dysphagia Assessment & Plan: See GI consult- S/P PEG 10/04/16. Assessment/Plan Discharge Planning: longterm facility when bed available-see soc work note. TADEO VERDIN Oct 22, 2016 17:09
[2016-10-22 20:00] VITALS: BP 100/69
[2016-10-23] VITALS: BP 105/69
[2016-10-23 04:00] VITALS: BP 108/70
[2016-10-23 05:20] LABS: BASOPHILS % (AUTO) 2.2 % (0.0-2.0); EOSINOPHILS % (AUTO) 2.6 % (0.0-3.0); LYMPHOCYTES % (AUTO) 33.7 % (20.0-45.0); MEAN CORPUSCULAR HEMOGLOBIN 28.3 PG (27.0-31.0); MEAN CORPUSCULAR HGB CONC 31.3 G/DL (32.0-36.0); MEAN CORPUSCULAR VOLUME 91 FL (80-99); MEAN PLATELET VOLUME 6.1 FL (6.5-10.1); MONOCYTES % (AUTO) 10.1 % (1.0-10.0); NEUTROPHILS % (AUTO) 51.4 % (45.0-75.0); PLATELET COUNT 346 K/UL (150-450); RED BLOOD COUNT 3.17 M/UL (4.70-6.10); RED CELL DISTRIBUTION WIDTH 15.4 % (11.6-14.8)
[2016-10-23 05:48] LABS: ANION GAP 10 (5-15); CALCIUM 8.7 mg/dL (8.6-10.2); CARBON DIOXIDE 31 mEQ/L (20-30); CHLORIDE 98 mEQ/L (98-107); CREATININE 0.5 mg/dL (0.7-1.2); GLOMERULAR FILTRATION RATE > 60 mL/min (>60); HEMOLYSIS 0; POTASSIUM 4.4 mEQ/L (3.4-4.9); SODIUM 139 mEQ/L (135-145)
[2016-10-23] MEDS: NovoLOG Insulin Flexpen SUBQ SCH ×5 (06:00→23:22)
[2016-10-23 08:00] VITALS: BP 112/77
[2016-10-23] MEDS: DuoNeb 0.5-3(2.5)mg/3ml neb HHN PRN ×3 (09:10→23:55)
[2016-10-23] MEDS: Pantoprazole Inj IVP SCH (09:53)
--- NOTE | 2016-10-23 10:49 | Pulmonology Progress Note ---
Assessment/Plan Problems: (1) Respiratory failure (2) COPD exacerbation (3) Emphysema of lung Assessment/Plan improving tolerating diet weaning trials all labs and notes reviewed continue current management stable for transfer to a subacute facility awaiting transfer to a subacute facility. Subjective ROS Limited/Unobtainable: No Constitutional: Reports: no symptoms HEENT: Repors: no symptoms Respiratory: Reports: no symptoms Allergies: Coded Allergies: No Known Allergies (Unverified , 06/17/16) Objective Last 24 Hour Vital Signs Date Time Temp Pulse Resp B/P Pulse Ox O2 Delivery O2 Flow Rate FiO2 10/23/16 09:11 75 16 100 Mechanical Ventilator 30 10/23/16 09:11 75 16 30 10/23/16 09:00 30 10/23/16 09:00 82 10/23/16 09:00 77 16 100 Mechanical Ventilator 30 10/23/16 08:00 97.5 87 18 112/77 98 Mechanical Ventilator 30 10/23/16 06:57 74 20 30 10/23/16 05:28 72 17 30 10/23/16 04:00 30 10/23/16 04:00 97.0 72 16 108/70 100 Mechanical Ventilator 10.0 30 10/23/16 03:44 82 10/23/16 03:30 81 16 30 10/23/16 00:57 75 17 30 10/23/16 00:00 97.0 89 18 105/69 100 Mechanical Ventilator 10.0 30 10/23/16 00:00 30 10/22/16 23:40 80 10/22/16 23:19 79 18 30 10/22/16 21:30 90 17 30 10/22/16 20:00 30 10/22/16 20:00 97.0 89 17 100/69 100 Mechanical Ventilator 10.0 30 10/22/16 19:30 93 17 30 10/22/16 19:20 93 10/22/16 16:50 82 16 40 10/22/16 16:00 30 10/22/16 16:00 98.1 80 16 94/70 100 Mechanical Ventilator 30 10/22/16 16:00 82 10/22/16 15:45 83 16 100 Mechanical Ventilator 30 10/22/16 15:45 40 10/22/16 15:44 81 16 100 Mechanical Ventilator 40 10/22/16 15:05 76 17 40 10/22/16 13:21 92 18 40 10/22/16 12:00 81 10/22/16 12:00 40 10/22/16 12:00 97.4 80 17 100/67 100 Mechanical Ventilator 40 10/22/16 11:07 82 17 40 10/22/16 11:07 40 10/22/16 11:07 82 17 100 Mechanical Ventilator 40 10/22/16 11:07 82 17 100 Mechanical Ventilator 10.0 40 Intake and Output 10/22/16 10/23/16 19:00 07:00 Intake Total 800 ml 720 ml Output Total 250 ml 360 ml Balance 550 ml 360 ml Free Water 200 ml Tube Feeding 600 ml 720 ml Output Urine Total 250 ml 360 ml Objective Status: awake HEENT: atraumatic, normocephalic Lungs: clear, decreased breath sounds Heart: HR/BP stable Abdomen: soft, non-tender Extremities: no C/C/E, edema Laboratory Tests 10/23/16 03:00: White Blood Count 4.0L, Red Blood Count 3.17L, Hemoglobin 9.0L, Hematocrit 28.8L , Mean Corpuscular Volume 91, Mean Corpuscular Hemoglobin 28.3, Mean Corpuscular Hemoglobin Concent 31.3L, Red Cell Distribution Width 15.4H, Platelet Count 346, Mean Platelet Volume 6.1L, Neutrophils (%) (Auto) 51.4, Lymphocytes (%) (Auto) 33.7, Monocytes (%) (Auto) 10.1H, Eosinophils (%) (Auto) 2.6, Basophils (%) (Auto) 2.2H, Sodium Level 139, Potassium Level 4.4, Chloride Level 98, Carbon Dioxide Level 31H, Anion Gap 10, Blood Urea Nitrogen 10, Creatinine 0.5L, Estimat Glomerular Filtration Rate > 60, Glucose Level 83, Calcium Level 8.7 Current Medications Medications (Trade) Dose Ordered Sig/Shraddha Route PRN Reason Start Time Stop Time Status Last Admin Dose Admin Acetaminophen (Tylenol) 650 mg Q4H PRN ORAL fever>100.5 10/05/16 11:30 11/04/16 11:29 Albuterol/ Ipratropium (DuoNeb 0.5-3(2.5)mg/3ml) 3 ml Q4H PRN HHN Shortness of Breath 10/19/16 10:00 10/24/16 09:59 4/19/17 09:10 Dextrose (Dextrose 50%) STAT PRN IV Hypoglycemia 10/05/16 11:30 11/04/16 11:29 Insulin Aspart (NovoLOG) start when feeding started Q6HR SUBQ 10/05/16 12:00 11/04/16 11:59 10/21/16 12:51 Lorazepam (Ativan 2mg/ml 1ml) 1 mg Q4H PRN IV For Anxiety 10/20/16 21:30 10/27/16 21:29 10/20/16 23:20 Ondansetron HCl (Zofran) 4 mg Q6H PRN IVP Nausea & Vomiting 10/05/16 11:30 11/04/16 11:29 Pantoprazole (Protonix) 40 mg DAILY IVP 10/06/16 09:00 11/05/16 08:59 10/23/16 09:53 Polyethylene Glycol (Miralax) 17 gm DAILYPRN PRN ORAL Constipation 10/05/16 11:30 11/04/16 11:29 REN WRIGHT Oct 23, 2016 10:49
[2016-10-23 12:00] VITALS: BP 99/60
--- NOTE | 2016-10-23 13:13 | Internal Med Progress Note ---
Subjective Date of Service: Oct 23, 2016 Physician Name Tadeo Verdin Attending Physician Steve Rader MD Current Medications Medications (Trade) Dose Ordered Sig/Shraddha Route PRN Reason Start Time Stop Time Status Last Admin Dose Admin Acetaminophen (Tylenol) 650 mg Q4H PRN ORAL fever>100.5 10/05/16 11:30 11/04/16 11:29 Albuterol/ Ipratropium (DuoNeb 0.5-3(2.5)mg/3ml) 3 ml Q4H PRN HHN Shortness of Breath 10/19/16 10:00 10/24/16 09:59 10/23/16 09:10 Dextrose (Dextrose 50%) STAT PRN IV Hypoglycemia 10/05/16 11:30 11/04/16 11:29 Insulin Aspart (NovoLOG) start when feeding started Q6HR SUBQ 10/05/16 12:00 11/04/16 11:59 10/21/16 12:51 Lorazepam (Ativan 2mg/ml 1ml) 1 mg Q4H PRN IV For Anxiety 10/20/16 21:30 10/27/16 21:29 10/20/16 23:20 Ondansetron HCl (Zofran) 4 mg Q6H PRN IVP Nausea & Vomiting 10/05/16 11:30 11/04/16 11:29 Pantoprazole (Protonix) 40 mg DAILY IVP 10/06/16 09:00 11/05/16 08:59 10/23/16 09:53 Polyethylene Glycol (Miralax) 17 gm DAILYPRN PRN ORAL Constipation 10/05/16 11:30 11/04/16 11:29 Allergies: Coded Allergies: No Known Allergies (Unverified , 06/17/16) ROS Limited/Unobtainable: Yes Subjective 66 YO M admitted with respiratory failure. JORDAN. Intubated and sedated. Await transfer to [facility]. Cover for Int Med-Dr Rader. Objective Last Vital Signs Date Time Temp Pulse Resp B/P Pulse Ox O2 Delivery O2 Flow Rate FiO2 10/23/16 12:01 30 10/23/16 12:00 97.9 100 18 99/60 100 Mechanical Ventilator 10/23/16 04:00 10.0 Laboratory Tests Test 10/23/16 03:00 White Blood Count 4.0 K/UL (4.8-10.8) L Red Blood Count 3.17 M/UL (4.70-6.10) L Hemoglobin 9.0 G/DL (14.2-18.0) L Hematocrit 28.8 % (42.0-52.0) L Mean Corpuscular Volume 91 FL (80-99) Mean Corpuscular Hemoglobin 28.3 PG (27.0-31.0) Mean Corpuscular Hemoglobin Concent 31.3 G/DL (32.0-36.0) L Red Cell Distribution Width 15.4 % (11.6-14.8) H Platelet Count 346 K/UL (150-450) Mean Platelet Volume 6.1 FL (6.5-10.1) L Neutrophils (%) (Auto) 51.4 % (45.0-75.0) Lymphocytes (%) (Auto) 33.7 % (20.0-45.0) Monocytes (%) (Auto) 10.1 % (1.0-10.0) H Eosinophils (%) (Auto) 2.6 % (0.0-3.0) Basophils (%) (Auto) 2.2 % (0.0-2.0) H Sodium Level 139 mEQ/L (135-145) Potassium Level 4.4 mEQ/L (3.4-4.9) Chloride Level 98 mEQ/L (98-107) Carbon Dioxide Level 31 mEQ/L (20-30) H Anion Gap 10 (5-15) Blood Urea Nitrogen 10 mg/dL (7-23) Creatinine 0.5 mg/dL (0.7-1.2) L Estimat Glomerular Filtration Rate > 60 mL/min (>60) Glucose Level 83 mg/dL (74-106) Calcium Level 8.7 mg/dL (8.6-10.2) Intake and Output 10/22/16 10/23/16 19:00 07:00 Intake Total 800 ml 720 ml Output Total 250 ml 360 ml Balance 550 ml 360 ml Free Water 200 ml Tube Feeding 600 ml 720 ml Output Urine Total 250 ml 360 ml Objective General Appearance: moderate distress, thin EENT: PERRL/EOMI, normal ENT inspection Neck: non-tender, normal alignment, supple Cardiovascular: normal peripheral pulses, normal rate, regular rhythm, no gallop/murmur, no JVD Respiratory/Chest: Trach; Mech Vent; trach; respiratory distress, crackles/ rales, rhonchi - bilaterally, expiratory wheezing Abdomen: non tender, soft, no organomegaly, no mass, decreased bowel sounds Extremities: normal range of motion Skin: normal pigmentation, warm/dry Assessment/Plan Problem List: (1) Lung nodule (2) DVT (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 (3) Acute respiratory failure Assessment & Plan: S/P tracheostomy 10/03/16. Failed weaning trial. Cont vent per pulmonary (4) COPD exacerbation Assessment & Plan: Continue duoneb. Continue vent per pulmonary. (5) Pneumonia Assessment & Plan: Observe off antibiotics per ID (6) Leukocytosis Assessment & Plan: Continue off antibiotics per ID. (7) Dysphagia Assessment & Plan: See GI consult- S/P PEG 10/04/16. Assessment/Plan [facility]-see soc work note. TADEO VERDIN Oct 23, 2016 13:12
[2016-10-23 16:00] VITALS: BP 95/61
--- NOTE | 2016-10-23 17:00 | Infectious Diseases Prog Note ---
Assessment/Plan Assessment/Plan ASSESSMENT: 66 y/o male with: // COPD exacerbation - delayed SCx 4+ PSA pt has increased secretions - CXR 09/27: Lungs are hyperinflated. No new infiltrates - negative: influenza // Leukocytosis - SP ( post op, 10/01 SP steroids ) // Diarrhea x 1 resolved C Diff Neg // Febrile low grade // HIV and Hep B/C : neg // - PEG 10/04 // Acute VDRF - intubated 09/20, 10/03 SP trach // Severe pulmonary HTN / grade I diastolic dysfunction / mod TR // Pulmonary nodules // Chronic RLE DVT // Tobacco abuse // [facility] resident // Negative MRSA, VRE screens // NKDA // Full Code PLAN: - Monitor pt off of AB Rx ( 10/17 SP Ceftazidime d# 14 ) ( 10/13 SP Jairon nebs d# 14 ) ( 10/11 SP Flagyl d# 10 ) ( 10/04 SP oral Vanco d# 3 ) ( 09/24 SP amikacin, invanz d# 5 / 5 ) ( 09/21 SP IV vancomycin d# 2 ) - taper steroids per pulm - monitor CBC, temperatures - monitor BMP - monitor CXR - vent support, wean as tolerated. Subjective Constitutional: Denies: anorexia, chills, drenching sweats, fatigue, fever, no symptoms, other Allergies: Coded Allergies: No Known Allergies (Unverified , 06/17/16) Objective Vital Signs Last 24 Hour Vital Signs Date Time Temp Pulse Resp B/P Pulse Ox O2 Delivery O2 Flow Rate FiO2 10/23/16 15:26 77 19 30 10/23/16 13:12 79 19 30 10/23/16 12:01 30 10/23/16 12:00 97.9 100 18 99/60 100 Mechanical Ventilator 30 10/23/16 11:15 77 16 30 10/23/16 09:11 75 16 100 Mechanical Ventilator 30 10/23/16 09:11 75 16 30 10/23/16 09:00 30 10/23/16 09:00 82 10/23/16 09:00 77 16 100 Mechanical Ventilator 30 10/23/16 08:00 30 10/23/16 08:00 97.5 87 18 112/77 98 Mechanical Ventilator 30 10/23/16 06:57 74 20 30 10/23/16 05:28 72 17 30 10/23/16 04:00 30 10/23/16 04:00 97.0 72 16 108/70 100 Mechanical Ventilator 10.0 30 10/23/16 03:44 82 10/23/16 03:30 81 16 30 10/23/16 00:57 75 17 30 10/23/16 00:00 97.0 89 18 105/69 100 Mechanical Ventilator 10.0 30 10/23/16 00:00 30 10/22/16 23:40 80 10/22/16 23:19 79 18 30 10/22/16 21:30 90 17 30 10/22/16 20:00 30 10/22/16 20:00 97.0 89 17 100/69 100 Mechanical Ventilator 10.0 30 10/22/16 19:30 93 17 30 10/22/16 19:20 93 Height (Feet): 6 Height (Inches): 2.00 Weight (Pounds): 126 HEENT: anicteric Respiratory/Chest: no respiratory distress Cardiovascular: regularly irregular Abdomen: non distended Laboratory Tests Test 10/23/16 03:00 White Blood Count 4.0 K/UL (4.8-10.8) L Red Blood Count 3.17 M/UL (4.70-6.10) L Hemoglobin 9.0 G/DL (14.2-18.0) L Hematocrit 28.8 % (42.0-52.0) L Mean Corpuscular Volume 91 FL (80-99) Mean Corpuscular Hemoglobin 28.3 PG (27.0-31.0) Mean Corpuscular Hemoglobin Concent 31.3 G/DL (32.0-36.0) L Red Cell Distribution Width 15.4 % (11.6-14.8) H Platelet Count 346 K/UL (150-450) Mean Platelet Volume 6.1 FL (6.5-10.1) L Neutrophils (%) (Auto) 51.4 % (45.0-75.0) Lymphocytes (%) (Auto) 33.7 % (20.0-45.0) Monocytes (%) (Auto) 10.1 % (1.0-10.0) H Eosinophils (%) (Auto) 2.6 % (0.0-3.0) Basophils (%) (Auto) 2.2 % (0.0-2.0) H Sodium Level 139 mEQ/L (135-145) Potassium Level 4.4 mEQ/L (3.4-4.9) Chloride Level 98 mEQ/L (98-107) Carbon Dioxide Level 31 mEQ/L (20-30) H Anion Gap 10 (5-15) Blood Urea Nitrogen 10 mg/dL (7-23) Creatinine 0.5 mg/dL (0.7-1.2) L Estimat Glomerular Filtration Rate > 60 mL/min (>60) Glucose Level 83 mg/dL (74-106) Calcium Level 8.7 mg/dL (8.6-10.2) Current Medications Medications (Trade) Dose Ordered Sig/Shraddha Route PRN Reason Start Time Stop Time Status Last Admin Dose Admin Acetaminophen (Tylenol) 650 mg Q4H PRN ORAL fever>100.5 10/05/16 11:30 11/04/16 11:29 Albuterol/ Ipratropium (DuoNeb 0.5-3(2.5)mg/3ml) 3 ml Q4H PRN HHN Shortness of Breath 10/19/16 10:00 10/24/16 09:59 10/23/16 09:10 Dextrose (Dextrose 50%) STAT PRN IV Hypoglycemia 10/05/16 11:30 11/04/16 11:29 Insulin Aspart (NovoLOG) start when feeding started Q6HR SUBQ 10/05/16 12:00 11/04/16 11:59 10/21/16 12:51 Lorazepam (Ativan 2mg/ml 1ml) 1 mg Q4H PRN IV For Anxiety 10/20/16 21:30 10/27/16 21:29 10/20/16 23:20 Ondansetron HCl (Zofran) 4 mg Q6H PRN IVP Nausea & Vomiting 10/05/16 11:30 11/04/16 11:29 Pantoprazole (Protonix) 40 mg DAILY IVP 10/06/16 09:00 11/05/16 08:59 10/23/16 09:53 Polyethylene Glycol (Miralax) 17 gm DAILYPRN PRN ORAL Constipation 10/05/16 11:30 11/04/16 11:29 KIMBERLEE HINKLE M.D. Oct 23, 2016 17:00
[2016-10-23 20:18] VITALS: BP 97/62
[2016-10-24 00:14] VITALS: BP 131/75
[2016-10-24 04:08] VITALS: BP 99/62
[2016-10-24 05:28] LABS: BASOPHILS % (AUTO) 2.1 % (0.0-2.0); EOSINOPHILS % (AUTO) 1.4 % (0.0-3.0); LYMPHOCYTES % (AUTO) 29.8 % (20.0-45.0); MEAN CORPUSCULAR HEMOGLOBIN 27.7 PG (27.0-31.0); MEAN CORPUSCULAR HGB CONC 30.5 G/DL (32.0-36.0); MEAN CORPUSCULAR VOLUME 91 FL (80-99); MEAN PLATELET VOLUME 6.3 FL (6.5-10.1); MONOCYTES % (AUTO) 7.3 % (1.0-10.0); NEUTROPHILS % (AUTO) 59.3 % (45.0-75.0); PLATELET COUNT 351 K/UL (150-450); RED BLOOD COUNT 3.56 M/UL (4.70-6.10); RED CELL DISTRIBUTION WIDTH 15.4 % (11.6-14.8); WHITE BLOOD COUNT 4.7 K/UL (4.8-10.8)
[2016-10-24 05:51] LABS: ANION GAP 11 (5-15); CALCIUM 9.2 mg/dL (8.6-10.2); CARBON DIOXIDE 30 mEQ/L (20-30); CHLORIDE 97 mEQ/L (98-107); CREATININE 0.5 mg/dL (0.7-1.2); GLOMERULAR FILTRATION RATE > 60 mL/min (>60); HEMOLYSIS 1; POTASSIUM 3.9 mEQ/L (3.4-4.9); SODIUM 138 mEQ/L (135-145)
[2016-10-24] MEDS: NovoLOG Insulin Flexpen SUBQ SCH ×3 (06:42→17:56)
[2016-10-24 08:00] VITALS: BP 86/58
[2016-10-24] MEDS: DuoNeb 0.5-3(2.5)mg/3ml neb HHN PRN ×4 (08:05→21:35)
[2016-10-24] MEDS: Pantoprazole Inj IVP SCH (09:17)
--- NOTE | 2016-10-24 11:02 | Infectious Diseases Prog Note ---
Assessment/Plan Assessment/Plan ASSESSMENT: 66 y/o male with: // COPD exacerbation - delayed SCx 4+ PSA pt has increased secretions - CXR 09/27: Lungs are hyperinflated. No new infiltrates - negative: influenza // Leukocytosis - SP ( post op, 10/01 SP steroids ) // Diarrhea x 1 resolved C Diff Neg // Febrile low grade // HIV and Hep B/C : neg // - PEG 10/04 // Acute VDRF - intubated 09/20, 10/03 SP trach // Severe pulmonary HTN / grade I diastolic dysfunction / mod TR // Pulmonary nodules // Chronic RLE DVT // Tobacco abuse // [facility] resident // Negative MRSA, VRE screens // NKDA // Full Code PLAN: - Monitor pt off of AB Rx ( 10/17 SP Ceftazidime d# 14 ) ( 10/13 SP Jairon nebs d# 14 ) ( 10/11 SP Flagyl d# 10 ) ( 10/04 SP oral Vanco d# 3 ) ( 09/24 SP amikacin, invanz d# 5 / 5 ) ( 09/21 SP IV vancomycin d# 2 ) - taper steroids per pulm - monitor CBC, temperatures - monitor BMP - monitor CXR - vent support, wean as tolerated. Subjective Constitutional: Denies: anorexia, chills, drenching sweats, fatigue, fever, no symptoms, other Allergies: Coded Allergies: No Known Allergies (Unverified , 06/17/16) Objective Vital Signs Last 24 Hour Vital Signs Date Time Temp Pulse Resp B/P Pulse Ox O2 Delivery O2 Flow Rate FiO2 10/24/16 09:11 93 18 30 10/24/16 08:14 92 16 100 Mechanical Ventilator 30 10/24/16 08:05 30 10/24/16 08:05 85 17 100 Mechanical Ventilator 30 10/24/16 08:00 97.2 82 18 86/58 94 Mechanical Ventilator 30 10/24/16 06:50 95 22 30 10/24/16 05:24 82 22 30 10/24/16 04:08 98.0 80 20 99/62 94 Mechanical Ventilator 30 10/24/16 04:00 30 10/24/16 04:00 78 10/24/16 03:14 92 21 30 10/24/16 00:36 80 16 30 10/24/16 00:14 97.8 93 21 131/75 99 Mechanical Ventilator 10/24/16 00:00 99 10/24/16 00:00 30 10/23/16 23:56 30 10/23/16 23:56 95 18 100 Mechanical Ventilator 30 10/23/16 22:55 76 18 30 10/23/16 21:00 89 10/23/16 20:41 68 16 30 10/23/16 20:18 98.4 88 17 97/62 93 Mechanical Ventilator 30 10/23/16 20:15 90 16 100 Mechanical Ventilator 30 10/23/16 20:05 30 10/23/16 20:04 88 16 100 Mechanical Ventilator 30 10/23/16 20:00 30 10/23/16 19:29 88 16 30 10/23/16 17:25 70 16 30 10/23/16 16:00 69 10/23/16 16:00 30 10/23/16 16:00 97.7 81 18 95/61 100 Mechanical Ventilator 30 10/23/16 15:26 77 19 30 10/23/16 13:12 79 19 30 10/23/16 12:01 30 10/23/16 12:00 78 10/23/16 12:00 97.9 100 18 99/60 100 Mechanical Ventilator 30 10/23/16 11:15 77 16 30 Height (Feet): 6 Height (Inches): 2.00 Weight (Pounds): 126 HEENT: anicteric Respiratory/Chest: normal breath sounds Cardiovascular: regularly irregular Abdomen: no organomegaly Laboratory Tests Test 10/24/16 04:15 White Blood Count 4.7 K/UL (4.8-10.8) L Red Blood Count 3.56 M/UL (4.70-6.10) L Hemoglobin 9.9 G/DL (14.2-18.0) L Hematocrit 32.4 % (42.0-52.0) L Mean Corpuscular Volume 91 FL (80-99) Mean Corpuscular Hemoglobin 27.7 PG (27.0-31.0) Mean Corpuscular Hemoglobin Concent 30.5 G/DL (32.0-36.0) L Red Cell Distribution Width 15.4 % (11.6-14.8) H Platelet Count 351 K/UL (150-450) Mean Platelet Volume 6.3 FL (6.5-10.1) L Neutrophils (%) (Auto) 59.3 % (45.0-75.0) Lymphocytes (%) (Auto) 29.8 % (20.0-45.0) Monocytes (%) (Auto) 7.3 % (1.0-10.0) Eosinophils (%) (Auto) 1.4 % (0.0-3.0) Basophils (%) (Auto) 2.1 % (0.0-2.0) H Sodium Level 138 mEQ/L (135-145) Potassium Level 3.9 mEQ/L (3.4-4.9) Chloride Level 97 mEQ/L (98-107) L Carbon Dioxide Level 30 mEQ/L (20-30) Anion Gap 11 (5-15) Blood Urea Nitrogen 11 mg/dL (7-23) Creatinine 0.5 mg/dL (0.7-1.2) L Estimat Glomerular Filtration Rate > 60 mL/min (>60) Glucose Level 132 mg/dL (74-106) H Calcium Level 9.2 mg/dL (8.6-10.2) Current Medications Medications (Trade) Dose Ordered Sig/Shraddha Route PRN Reason Start Time Stop Time Status Last Admin Dose Admin Acetaminophen (Tylenol) 650 mg Q4H PRN ORAL fever>100.5 10/05/16 11:30 11/04/16 11:29 Dextrose (Dextrose 50%) STAT PRN IV Hypoglycemia 10/05/16 11:30 11/04/16 11:29 Insulin Aspart (NovoLOG) start when feeding started Q6HR SUBQ 10/05/16 12:00 11/04/16 11:59 10/24/16 06:42 Lorazepam (Ativan 2mg/ml 1ml) 1 mg Q4H PRN IV For Anxiety 10/20/16 21:30 10/27/16 21:29 10/20/16 23:20 Ondansetron HCl (Zofran) 4 mg Q6H PRN IVP Nausea & Vomiting 10/05/16 11:30 11/04/16 11:29 10/24/16 09:17 Pantoprazole (Protonix) 40 mg DAILY IVP 10/06/16 09:00 11/05/16 08:59 10/24/16 09:17 Polyethylene Glycol (Miralax) 17 gm DAILYPRN PRN ORAL Constipation 10/05/16 11:30 11/04/16 11:29 KIMBERLEE HINKLE M.D. Oct 24, 2016 11:02
--- NOTE | 2016-10-24 11:04 | Pulmonology Progress Note ---
Assessment/Plan Problems: (1) Respiratory failure (2) COPD exacerbation (3) Emphysema of lung Respiratory: monitor respiratory rate, adjust FIO2, weaning trial Cardiac: continue to monitor HR/BP Renal: F/U I&O, check electrolytes Infectious Disease: check cultures Gastrointestinal: continue feedings/current rate Endocrine: monitor blood sugar, check HgA1C Hematologic: monitor H/H, transfuse if hgb<8.5 Neurologic: PRN Ativan, keep patient comfortable Prophylaxis: Protonix Disposition: keep in ICU Notes Reviewed: mounter saxophones, ID Subjective ROS Limited/Unobtainable: No Allergies: Coded Allergies: No Known Allergies (Unverified , 06/17/16) Objective Last 24 Hour Vital Signs Date Time Temp Pulse Resp B/P Pulse Ox O2 Delivery O2 Flow Rate FiO2 10/24/16 09:11 93 18 30 10/24/16 08:14 92 16 100 Mechanical Ventilator 30 10/24/16 08:05 30 10/24/16 08:05 85 17 100 Mechanical Ventilator 30 10/24/16 08:00 97.2 82 18 86/58 94 Mechanical Ventilator 30 10/24/16 06:50 95 22 30 10/24/16 05:24 82 22 30 10/24/16 04:08 98.0 80 20 99/62 94 Mechanical Ventilator 30 10/24/16 04:00 30 10/24/16 04:00 78 10/24/16 03:14 92 21 30 10/24/16 00:36 80 16 30 10/24/16 00:14 97.8 93 21 131/75 99 Mechanical Ventilator 10/24/16 00:00 99 10/24/16 00:00 30 10/23/16 23:56 30 10/23/16 23:56 95 18 100 Mechanical Ventilator 30 10/23/16 22:55 76 18 30 10/23/16 21:00 89 10/23/16 20:41 68 16 30 10/23/16 20:18 98.4 88 17 97/62 93 Mechanical Ventilator 30 10/23/16 20:15 90 16 100 Mechanical Ventilator 30 10/23/16 20:05 30 10/23/16 20:04 88 16 100 Mechanical Ventilator 30 10/23/16 20:00 30 10/23/16 19:29 88 16 30 10/23/16 17:25 70 16 30 4/19/17 16:00 69 10/23/16 16:00 30 10/23/16 16:00 97.7 81 18 95/61 100 Mechanical Ventilator 30 10/23/16 15:26 77 19 30 10/23/16 13:12 79 19 30 10/23/16 12:01 30 10/23/16 12:00 78 10/23/16 12:00 97.9 100 18 99/60 100 Mechanical Ventilator 30 10/23/16 11:15 77 16 30 Intake and Output 10/23/16 10/24/16 19:00 07:00 Intake Total 780 ml 390 ml Output Total 250 ml Balance 780 ml 140 ml Free Water 120 ml Tube Feeding 660 ml 390 ml Output Urine Total 250 ml Objective Status: awake HEENT: atraumatic, normocephalic Lungs: clear, decreased breath sounds Heart: HR/BP stable Abdomen: soft, non-tender Extremities: no C/C/E, edema Laboratory Tests 10/24/16 04:15: White Blood Count 4.7L, Red Blood Count 3.56L, Hemoglobin 9.9L, Hematocrit 32.4L , Mean Corpuscular Volume 91, Mean Corpuscular Hemoglobin 27.7, Mean Corpuscular Hemoglobin Concent 30.5L, Red Cell Distribution Width 15.4H, Platelet Count 351, Mean Platelet Volume 6.3L, Neutrophils (%) (Auto) 59.3, Lymphocytes (%) (Auto) 29.8, Monocytes (%) (Auto) 7.3, Eosinophils (%) (Auto) 1.4, Basophils (%) (Auto) 2.1H, Sodium Level 138, Potassium Level 3.9, Chloride Level 97L, Carbon Dioxide Level 30, Anion Gap 11, Blood Urea Nitrogen 11, Creatinine 0.5L, Estimat Glomerular Filtration Rate > 60, Glucose Level 132H, Calcium Level 9.2 Current Medications Medications (Trade) Dose Ordered Sig/Shraddha Route PRN Reason Start Time Stop Time Status Last Admin Dose Admin Acetaminophen (Tylenol) 650 mg Q4H PRN ORAL fever>100.5 10/05/16 11:30 11/04/16 11:29 Dextrose (Dextrose 50%) STAT PRN IV Hypoglycemia 10/05/16 11:30 11/04/16 11:29 Insulin Aspart (NovoLOG) start when feeding started Q6HR SUBQ 10/05/16 12:00 11/04/16 11:59 10/24/16 06:42 Lorazepam (Ativan 2mg/ml 1ml) 1 mg Q4H PRN IV For Anxiety 10/20/16 21:30 10/27/16 21:29 10/20/16 23:20 Ondansetron HCl (Zofran) 4 mg Q6H PRN IVP Nausea & Vomiting 10/05/16 11:30 11/04/16 11:29 10/24/16 09:17 Pantoprazole (Protonix) 40 mg DAILY IVP 10/06/16 09:00 11/05/16 08:59 10/24/16 09:17 Polyethylene Glycol (Miralax) 17 gm DAILYPRN PRN ORAL Constipation 10/05/16 11:30 11/04/16 11:29 REN WRIGHT Oct 24, 2016 11:04
[2016-10-24 12:00] VITALS: BP 110/62
[2016-10-24 16:00] VITALS: BP 114/56
--- NOTE | 2016-10-24 18:04 | Internal Med Progress Note ---
Subjective Date of Service: Oct 24, 2016 Physician Name Tadeo Verdin Attending Physician Steve Rader MD Current Medications Medications (Trade) Dose Ordered Sig/Shraddha Route PRN Reason Start Time Stop Time Status Last Admin Dose Admin Acetaminophen (Tylenol) 650 mg Q4H PRN ORAL fever>100.5 10/05/16 11:30 11/04/16 11:29 Albuterol/ Ipratropium (DuoNeb 0.5-3(2.5)mg/3ml) 3 ml Q4H PRN HHN Shortness of Breath 10/24/16 13:30 10/29/16 13:29 10/24/16 17:23 Dextrose (Dextrose 50%) STAT PRN IV Hypoglycemia 10/05/16 11:30 11/04/16 11:29 Insulin Aspart (NovoLOG) start when feeding started Q6HR SUBQ 10/05/16 12:00 11/04/16 11:59 10/24/16 17:56 Lorazepam (Ativan 2mg/ml 1ml) 1 mg Q4H PRN IV For Anxiety 10/20/16 21:30 10/27/16 21:29 10/20/16 23:20 Ondansetron HCl (Zofran) 4 mg Q6H PRN IVP Nausea & Vomiting 10/05/16 11:30 11/04/16 11:29 10/24/16 09:17 Pantoprazole (Protonix) 40 mg DAILY GT 10/25/16 09:00 11/24/16 08:59 Polyethylene Glycol (Miralax) 17 gm DAILYPRN PRN ORAL Constipation 10/05/16 11:30 11/04/16 11:29 Allergies: Coded Allergies: No Known Allergies (Unverified , 06/17/16) ROS Limited/Unobtainable: Yes Subjective 66 YO M admitted with respiratory failure. JORDAN. Intubated and sedated. Await placement at [facility] acute care facility. Cover for Int Med-Dr Rader. Objective Last Vital Signs Date Time Temp Pulse Resp B/P Pulse Ox O2 Delivery O2 Flow Rate FiO2 10/24/16 17:23 30 10/24/16 17:23 78 16 100 Mechanical Ventilator 10/24/16 13:18 15.0 10/24/16 12:00 97.2 110/62 Laboratory Tests Test 10/24/16 04:15 White Blood Count 4.7 K/UL (4.8-10.8) L Red Blood Count 3.56 M/UL (4.70-6.10) L Hemoglobin 9.9 G/DL (14.2-18.0) L Hematocrit 32.4 % (42.0-52.0) L Mean Corpuscular Volume 91 FL (80-99) Mean Corpuscular Hemoglobin 27.7 PG (27.0-31.0) Mean Corpuscular Hemoglobin Concent 30.5 G/DL (32.0-36.0) L Red Cell Distribution Width 15.4 % (11.6-14.8) H Platelet Count 351 K/UL (150-450) Mean Platelet Volume 6.3 FL (6.5-10.1) L Neutrophils (%) (Auto) 59.3 % (45.0-75.0) Lymphocytes (%) (Auto) 29.8 % (20.0-45.0) Monocytes (%) (Auto) 7.3 % (1.0-10.0) Eosinophils (%) (Auto) 1.4 % (0.0-3.0) Basophils (%) (Auto) 2.1 % (0.0-2.0) H Sodium Level 138 mEQ/L (135-145) Potassium Level 3.9 mEQ/L (3.4-4.9) Chloride Level 97 mEQ/L (98-107) L Carbon Dioxide Level 30 mEQ/L (20-30) Anion Gap 11 (5-15) Blood Urea Nitrogen 11 mg/dL (7-23) Creatinine 0.5 mg/dL (0.7-1.2) L Estimat Glomerular Filtration Rate > 60 mL/min (>60) Glucose Level 132 mg/dL (74-106) H Calcium Level 9.2 mg/dL (8.6-10.2) Intake and Output 10/23/16 10/24/16 19:00 07:00 Intake Total 780 ml 390 ml Output Total 250 ml Balance 780 ml 140 ml Free Water 120 ml Tube Feeding 660 ml 390 ml Output Urine Total 250 ml Objective General Appearance: moderate distress, thin EENT: PERRL/EOMI, normal ENT inspection Neck: non-tender, normal alignment, supple Cardiovascular: normal peripheral pulses, normal rate, regular rhythm, no gallop/murmur, no JVD Respiratory/Chest: Trach; Mech Vent; trach; respiratory distress, crackles/ rales, rhonchi - bilaterally, expiratory wheezing Abdomen: non tender, soft, no organomegaly, no mass, decreased bowel sounds Extremities: normal range of motion Skin: normal pigmentation, warm/dry Assessment/Plan Problem List: (1) Lung nodule (2) DVT (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 (3) Acute respiratory failure Assessment & Plan: S/P tracheostomy 10/03/16. Failed weaning trial. Cont vent per pulmonary (4) COPD exacerbation Assessment & Plan: Continue duoneb. Continue vent per pulmonary. (5) Pneumonia Assessment & Plan: Observe off antibiotics per ID (6) Leukocytosis Assessment & Plan: Continue off antibiotics per ID. (7) Dysphagia Assessment & Plan: See GI consult- S/P PEG 10/04/16. Status: not improved Assessment/Plan Discharge Planning: [facility] when bed available-see soc work note. TADEO VERDIN Oct 24, 2016 18:04
[2016-10-24 20:25] VITALS: BP 91/66
[2016-10-25 00:49] VITALS: BP 115/80
[2016-10-25] MEDS ORDERED: Miralax 17gm pkt GT PRN (01:00)
[2016-10-25 04:42] VITALS: BP 100/70
[2016-10-25 05:31] LABS: BASOPHILS % (AUTO) 1.6 % (0.0-2.0); EOSINOPHILS % (AUTO) 1.9 % (0.0-3.0); LYMPHOCYTES % (AUTO) 30.8 % (20.0-45.0); MEAN CORPUSCULAR HEMOGLOBIN 27.8 PG (27.0-31.0); MEAN CORPUSCULAR HGB CONC 30.6 G/DL (32.0-36.0); MEAN CORPUSCULAR VOLUME 91 FL (80-99); MEAN PLATELET VOLUME 6.2 FL (6.5-10.1); NEUTROPHILS % (AUTO) 53.6 % (45.0-75.0); PLATELET COUNT 345 K/UL (150-450); RED BLOOD COUNT 3.53 M/UL (4.70-6.10); RED CELL DISTRIBUTION WIDTH 15.7 % (11.6-14.8); WHITE BLOOD COUNT 4.2 K/UL (4.8-10.8)
[2016-10-25] MEDS: NovoLOG Insulin Flexpen SUBQ SCH ×4 (05:51→17:07)
[2016-10-25 06:15] LABS: ANION GAP 11 (5-15); CALCIUM 9.2 mg/dL (8.6-10.2); CARBON DIOXIDE 29 mEQ/L (20-30); CHLORIDE 96 mEQ/L (98-107); CREATININE 0.6 mg/dL (0.7-1.2); GLOMERULAR FILTRATION RATE > 60 mL/min (>60); HEMOLYSIS 4; POTASSIUM 4.3 mEQ/L (3.4-4.9); SODIUM 136 mEQ/L (135-145)
[2016-10-25] MEDS: DuoNeb 0.5-3(2.5)mg/3ml neb HHN PRN ×3 (07:56→19:05)
[2016-10-25 08:00] VITALS: BP 98/64
[2016-10-25] MEDS: Pantoprazole 40mg pkt GT SCH (08:02)
--- NOTE | 2016-10-25 11:39 | Pulmonology Progress Note ---
Assessment/Plan Problems: (1) Respiratory failure (2) COPD exacerbation (3) Emphysema of lung Respiratory: monitor respiratory rate, adjust FIO2 Cardiac: continue pressors, stop pressors Renal: keep IV fluid Infectious Disease: check cultures Gastrointestinal: continue feedings/current rate Endocrine: monitor blood sugar, continue sliding scale insulin Hematologic: transfuse if hgb<8.5 Neurologic: PRN Ativan, keep patient comfortable Prophylaxis: Protonix, Heparin Notes Reviewed: cardio, renal Subjective ROS Limited/Unobtainable: No Constitutional: Reports: no symptoms HEENT: Repors: no symptoms Respiratory: Reports: no symptoms Allergies: Coded Allergies: No Known Allergies (Unverified , 06/17/16) Objective Last 24 Hour Vital Signs Date Time Temp Pulse Resp B/P Pulse Ox O2 Delivery O2 Flow Rate FiO2 10/25/16 11:12 85 22 30 10/25/16 08:53 80 18 30 10/25/16 08:00 30 10/25/16 08:00 82 10/25/16 08:00 97.7 84 19 98/64 100 Mechanical Ventilator 30 10/25/16 07:55 82 20 100 Mechanical Ventilator 30 10/25/16 07:55 30 10/25/16 06:50 82 20 30 10/25/16 05:21 74 18 30 10/25/16 04:42 95.9 79 17 100/70 98 Mechanical Ventilator 10/25/16 04:00 77 10/25/16 04:00 30 10/25/16 03:00 91 16 30 10/25/16 01:10 77 16 30 10/25/16 00:49 97.5 80 18 115/80 98 Mechanical Ventilator 10/25/16 00:00 71 10/25/16 00:00 30 10/24/16 23:21 70 16 24 10/24/16 21:36 75 18 100 Mechanical Ventilator 30 10/24/16 21:25 30 10/24/16 21:25 70 16 100 Mechanical Ventilator 30 10/24/16 21:03 72 16 24 10/24/16 21:00 30 10/24/16 20:25 96.6 79 17 91/66 99 Mechanical Ventilator 10/24/16 20:00 82 10/24/16 18:48 77 16 24 10/24/16 17:23 30 10/24/16 17:23 78 16 100 Mechanical Ventilator 30 10/24/16 17:23 78 16 30 10/24/16 16:00 30 10/24/16 16:00 67 10/24/16 16:00 97.7 75 17 114/56 100 Mechanical Ventilator 30 10/24/16 14:33 91 20 30 10/24/16 13:18 91 17 100 Mechanical Ventilator 30 10/24/16 13:18 91 17 100 Mechanical Ventilator 15.0 30 10/24/16 13:18 30 10/24/16 12:42 83 18 30 10/24/16 12:00 97.2 60 16 110/62 100 Mechanical Ventilator 30 10/24/16 12:00 80 10/24/16 12:00 30 Intake and Output 10/24/16 10/25/16 19:00 07:00 Intake Total 450 ml 320 ml Output Total 830 ml 275 ml Balance -380 ml 45 ml Free Water 120 ml 100 ml Tube Feeding 330 ml 220 ml Output Urine Total 830 ml 275 ml Objective Status: awake HEENT: atraumatic, normocephalic Lungs: clear, decreased breath sounds Heart: HR/BP stable Abdomen: soft, non-tender Extremities: no C/C/E, edema Laboratory Tests 10/25/16 03:20: White Blood Count 4.2L, Red Blood Count 3.53L, Hemoglobin 9.8L, Hematocrit 32.1L , Mean Corpuscular Volume 91, Mean Corpuscular Hemoglobin 27.8, Mean Corpuscular Hemoglobin Concent 30.6L, Red Cell Distribution Width 15.7H, Platelet Count 345, Mean Platelet Volume 6.2L, Neutrophils (%) (Auto) 53.6, Lymphocytes (%) (Auto) 30.8, Monocytes (%) (Auto) 12.0H, Eosinophils (%) (Auto) 1.9, Basophils (%) (Auto) 1.6, Sodium Level 136, Potassium Level 4.3, Chloride Level 96L, Carbon Dioxide Level 29, Anion Gap 11, Blood Urea Nitrogen 12, Creatinine 0.6L, Estimat Glomerular Filtration Rate > 60, Glucose Level 76, Calcium Level 9.2 Current Medications Medications (Trade) Dose Ordered Sig/Shraddha Route PRN Reason Start Time Stop Time Status Last Admin Dose Admin Acetaminophen (Tylenol) 650 mg Q4H PRN ORAL fever>100.5 10/05/16 11:30 11/04/16 11:29 Albuterol/ Ipratropium (DuoNeb 0.5-3(2.5)mg/3ml) 3 ml Q4H PRN HHN Shortness of Breath 10/24/16 13:30 10/29/16 13:29 10/25/16 07:56 Dextrose (Dextrose 50%) STAT PRN IV Hypoglycemia 10/05/16 11:30 11/04/16 11:29 Insulin Aspart (NovoLOG) start when feeding started Q6HR SUBQ 10/05/16 12:00 11/04/16 11:59 10/24/16 17:56 Lorazepam (Ativan 2mg/ml 1ml) 1 mg Q4H PRN IV For Anxiety 10/20/16 21:30 10/27/16 21:29 10/20/16 23:20 Metoclopramide HCl (Reglan) 10 mg THREE TIMES A DAY GT 10/24/16 19:00 11/23/16 18:59 10/25/16 08:02 Ondansetron HCl (Zofran) 4 mg Q6H PRN IVP Nausea & Vomiting 10/05/16 11:30 11/04/16 11:29 10/24/16 09:17 Pantoprazole (Protonix) 40 mg DAILY GT 10/25/16 09:00 11/24/16 08:59 10/25/16 08:02 Polyethylene Glycol (Miralax) 17 gm DAILYPRN PRN GT Constipation 10/25/16 01:00 11/24/16 00:59 REN WRIGHT Oct 25, 2016 11:39
[2016-10-25 12:00] VITALS: BP 101/68
[2016-10-25 16:00] VITALS: BP 106/64
--- NOTE | 2016-10-25 17:20 | Internal Med Progress Note ---
Subjective Physician Name Steve Rader Attending Physician Steve Rader MD Current Medications Medications (Trade) Dose Ordered Sig/Shraddha Route PRN Reason Start Time Stop Time Status Last Admin Dose Admin Acetaminophen (Tylenol) 650 mg Q4H PRN ORAL fever>100.5 10/05/16 11:30 11/04/16 11:29 Albuterol/ Ipratropium (DuoNeb 0.5-3(2.5)mg/3ml) 3 ml Q4H PRN HHN Shortness of Breath 10/24/16 13:30 10/29/16 13:29 10/25/16 13:29 Dextrose (Dextrose 50%) STAT PRN IV Hypoglycemia 10/05/16 11:30 11/04/16 11:29 Insulin Aspart (NovoLOG) start when feeding started Q6HR SUBQ 10/05/16 12:00 11/04/16 11:59 10/24/16 17:56 Lorazepam (Ativan 2mg/ml 1ml) 1 mg Q4H PRN IV For Anxiety 10/20/16 21:30 10/27/16 21:29 10/20/16 23:20 Metoclopramide HCl (Reglan) 10 mg THREE TIMES A DAY GT 10/24/16 19:00 11/23/16 18:59 10/25/16 17:07 Ondansetron HCl (Zofran) 4 mg Q6H PRN IVP Nausea & Vomiting 10/05/16 11:30 11/04/16 11:29 10/24/16 09:17 Pantoprazole (Protonix) 40 mg DAILY GT 10/25/16 09:00 11/24/16 08:59 10/25/16 08:02 Polyethylene Glycol (Miralax) 17 gm DAILYPRN PRN GT Constipation 10/25/16 01:00 11/24/16 00:59 Allergies: Coded Allergies: No Known Allergies (Unverified , 06/17/16) Subjective awake, alert, responsive on Vent Objective Last Vital Signs Date Time Temp Pulse Resp B/P Pulse Ox O2 Delivery O2 Flow Rate FiO2 10/25/16 16:09 79 10/25/16 16:04 30 10/25/16 14:56 18 10/25/16 13:29 100 Mechanical Ventilator 10/25/16 12:00 98.4 101/68 10/24/16 13:18 15.0 Laboratory Tests Test 10/25/16 03:20 White Blood Count 4.2 K/UL (4.8-10.8) L Red Blood Count 3.53 M/UL (4.70-6.10) L Hemoglobin 9.8 G/DL (14.2-18.0) L Hematocrit 32.1 % (42.0-52.0) L Mean Corpuscular Volume 91 FL (80-99) Mean Corpuscular Hemoglobin 27.8 PG (27.0-31.0) Mean Corpuscular Hemoglobin Concent 30.6 G/DL (32.0-36.0) L Red Cell Distribution Width 15.7 % (11.6-14.8) H Platelet Count 345 K/UL (150-450) Mean Platelet Volume 6.2 FL (6.5-10.1) L Neutrophils (%) (Auto) 53.6 % (45.0-75.0) Lymphocytes (%) (Auto) 30.8 % (20.0-45.0) Monocytes (%) (Auto) 12.0 % (1.0-10.0) H Eosinophils (%) (Auto) 1.9 % (0.0-3.0) Basophils (%) (Auto) 1.6 % (0.0-2.0) Sodium Level 136 mEQ/L (135-145) Potassium Level 4.3 mEQ/L (3.4-4.9) Chloride Level 96 mEQ/L (98-107) L Carbon Dioxide Level 29 mEQ/L (20-30) Anion Gap 11 (5-15) Blood Urea Nitrogen 12 mg/dL (7-23) Creatinine 0.6 mg/dL (0.7-1.2) L Estimat Glomerular Filtration Rate > 60 mL/min (>60) Glucose Level 76 mg/dL (74-106) Calcium Level 9.2 mg/dL (8.6-10.2) Intake and Output 10/24/16 10/25/16 19:00 07:00 Intake Total 450 ml 320 ml Output Total 830 ml 275 ml Balance -380 ml 45 ml Free Water 120 ml 100 ml Tube Feeding 330 ml 220 ml Output Urine Total 830 ml 275 ml Objective General: No acute distress, awake and alert HEENT: NCAT, sclera anicteric, PERRL, EOMI. Neck: Supple, Trach intact. Lungs: clear to auscultation bilaterally, no Wheeze or Rales. Heart: Regular rate and rhythm, normal S1/S2, no murmurs Abdomen: soft, nontender, nondistended. Normoactive bowel sounds.PEG site is clean. : Johnson cath Extremities: No Cyanosis , clubbing or edema. Neuro: A&O x 3, Able to move all extremities. Muscle atrophy. Skin: warm, no rashes or lesions Assessment/Plan Assessment/Plan (1) Lung nodule (2) DVT (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 (3) Acute respiratory failure Assessment & Plan: S/P tracheostomy 10/03/16. Failed weaning trial. Cont vent per pulmonary (4) COPD exacerbation Assessment & Plan: Continue duoneb. Continue vent per pulmonary. (5) Pneumonia Assessment & Plan: Observe off antibiotics per ID (6) Leukocytosis Assessment & Plan: Continue off antibiotics per ID. (7) Dysphagia Assessment & Plan: See GI consult- S/P PEG 10/04/16. Status: not improved Assessment/Plan Discharge Planning: waiting for rn long term care acute care facility placement Off Abx. Steve Rader MD Oct 25, 2016 17:20
--- NOTE | 2016-10-25 18:34 | Infectious Diseases Prog Note ---
Assessment/Plan Assessment/Plan ASSESSMENT: 66 y/o male with: // COPD exacerbation - delayed SCx 4+ PSA pt has increased secretions - CXR 09/27: Lungs are hyperinflated. No new infiltrates - negative: influenza // Leukocytosis - SP ( post op, 10/01 SP steroids ) // Diarrhea x 1 resolved C Diff Neg // Febrile low grade // HIV and Hep B/C : neg // - PEG 10/04 // Acute VDRF - intubated 09/20, 10/03 SP trach // Severe pulmonary HTN / grade I diastolic dysfunction / mod TR // Pulmonary nodules // Chronic RLE DVT // Tobacco abuse // [facility] resident // Negative MRSA, VRE screens // NKDA // Full Code PLAN: - Monitor pt off of AB Rx ( 10/17 SP Ceftazidime d# 14 ) ( 10/13 SP Jairon nebs d# 14 ) ( 10/11 SP Flagyl d# 10 ) ( 10/04 SP oral Vanco d# 3 ) ( 09/24 SP amikacin, invanz d# 5 / 5 ) ( 09/21 SP IV vancomycin d# 2 ) - taper steroids per pulm - monitor CBC, temperatures - monitor BMP - monitor CXR - vent support, wean as tolerated. Subjective Constitutional: Denies: anorexia, chills, drenching sweats, fatigue, fever, no symptoms, other Allergies: Coded Allergies: No Known Allergies (Unverified , 06/17/16) Objective Vital Signs Last 24 Hour Vital Signs Date Time Temp Pulse Resp B/P Pulse Ox O2 Delivery O2 Flow Rate FiO2 10/25/16 17:05 83 18 30 10/25/16 16:09 79 10/25/16 16:04 30 10/25/16 16:00 97.3 72 16 106/64 100 Mechanical Ventilator 30 10/25/16 14:56 81 18 30 10/25/16 13:29 30 10/25/16 13:29 81 19 100 Mechanical Ventilator 30 10/25/16 12:56 75 18 30 10/25/16 12:00 30 10/25/16 12:00 85 10/25/16 12:00 98.4 85 17 101/68 100 Mechanical Ventilator 30 10/25/16 11:12 85 22 30 10/25/16 08:53 80 18 30 10/25/16 08:00 30 10/25/16 08:00 82 10/25/16 08:00 97.7 84 19 98/64 100 Mechanical Ventilator 30 10/25/16 07:55 82 20 100 Mechanical Ventilator 30 10/25/16 07:55 30 10/25/16 06:50 82 20 30 10/25/16 05:21 74 18 30 10/25/16 04:42 95.9 79 17 100/70 98 Mechanical Ventilator 10/25/16 04:00 77 10/25/16 04:00 30 10/25/16 03:00 91 16 30 10/25/16 01:10 77 16 30 10/25/16 00:49 97.5 80 18 115/80 98 Mechanical Ventilator 10/25/16 00:00 71 10/25/16 00:00 30 10/24/16 23:21 70 16 24 10/24/16 21:36 75 18 100 Mechanical Ventilator 30 10/24/16 21:25 30 10/24/16 21:25 70 16 100 Mechanical Ventilator 30 10/24/16 21:03 72 16 24 10/24/16 21:00 30 10/24/16 20:25 96.6 79 17 91/66 99 Mechanical Ventilator 10/24/16 20:00 82 10/24/16 18:48 77 16 24 Height (Feet): 6 Height (Inches): 2.00 Weight (Pounds): 126 HEENT: atraumatic Respiratory/Chest: normal breath sounds Cardiovascular: regularly irregular Abdomen: no organomegaly Laboratory Tests Test 10/25/16 03:20 White Blood Count 4.2 K/UL (4.8-10.8) L Red Blood Count 3.53 M/UL (4.70-6.10) L Hemoglobin 9.8 G/DL (14.2-18.0) L Hematocrit 32.1 % (42.0-52.0) L Mean Corpuscular Volume 91 FL (80-99) Mean Corpuscular Hemoglobin 27.8 PG (27.0-31.0) Mean Corpuscular Hemoglobin Concent 30.6 G/DL (32.0-36.0) L Red Cell Distribution Width 15.7 % (11.6-14.8) H Platelet Count 345 K/UL (150-450) Mean Platelet Volume 6.2 FL (6.5-10.1) L Neutrophils (%) (Auto) 53.6 % (45.0-75.0) Lymphocytes (%) (Auto) 30.8 % (20.0-45.0) Monocytes (%) (Auto) 12.0 % (1.0-10.0) H Eosinophils (%) (Auto) 1.9 % (0.0-3.0) Basophils (%) (Auto) 1.6 % (0.0-2.0) Sodium Level 136 mEQ/L (135-145) Potassium Level 4.3 mEQ/L (3.4-4.9) Chloride Level 96 mEQ/L (98-107) L Carbon Dioxide Level 29 mEQ/L (20-30) Anion Gap 11 (5-15) Blood Urea Nitrogen 12 mg/dL (7-23) Creatinine 0.6 mg/dL (0.7-1.2) L Estimat Glomerular Filtration Rate > 60 mL/min (>60) Glucose Level 76 mg/dL (74-106) Calcium Level 9.2 mg/dL (8.6-10.2) Current Medications Medications (Trade) Dose Ordered Sig/Shraddha Route PRN Reason Start Time Stop Time Status Last Admin Dose Admin Acetaminophen (Tylenol) 650 mg Q4H PRN ORAL fever>100.5 10/05/16 11:30 11/04/16 11:29 Albuterol/ Ipratropium (DuoNeb 0.5-3(2.5)mg/3ml) 3 ml Q4H PRN HHN Shortness of Breath 10/24/16 13:30 10/29/16 13:29 10/25/16 13:29 Dextrose (Dextrose 50%) STAT PRN IV Hypoglycemia 10/05/16 11:30 11/04/16 11:29 Insulin Aspart (NovoLOG) start when feeding started Q6HR SUBQ 10/05/16 12:00 11/04/16 11:59 10/24/16 17:56 Lorazepam (Ativan 2mg/ml 1ml) 1 mg Q4H PRN IV For Anxiety 10/20/16 21:30 10/27/16 21:29 10/20/16 23:20 Metoclopramide HCl (Reglan) 10 mg THREE TIMES A DAY GT 4/20/17 19:00 11/23/16 18:59 10/25/16 17:07 Ondansetron HCl (Zofran) 4 mg Q6H PRN IVP Nausea & Vomiting 10/05/16 11:30 11/04/16 11:29 10/24/16 09:17 Pantoprazole (Protonix) 40 mg DAILY GT 10/25/16 09:00 11/24/16 08:59 10/25/16 08:02 Polyethylene Glycol (Miralax) 17 gm DAILYPRN PRN GT Constipation 10/25/16 01:00 11/24/16 00:59 KIMBERLEE HINKLE M.D. Oct 25, 2016 18:34
[2016-10-25 20:00] VITALS: BP 103/67
[2016-10-26] MEDS: DuoNeb 0.5-3(2.5)mg/3ml neb HHN PRN ×4 (00:37→21:10)
[2016-10-26 00:59] VITALS: BP 112/83
[2016-10-26 04:00] VITALS: BP 104/72
[2016-10-26] MEDS: NovoLOG Insulin Flexpen SUBQ SCH ×4 (06:00→16:58)
[2016-10-26 08:00] VITALS: BP 109/69
[2016-10-26] MEDS: Pantoprazole 40mg pkt GT SCH (08:22)
--- NOTE | 2016-10-26 09:27 | Pulmonology Progress Note ---
Assessment/Plan Problems: (1) Respiratory failure (2) COPD exacerbation (3) Emphysema of lung Assessment/Plan not tolerating feeding titrate fio2 titrate vent setting watch cbb, bmp dvt prophylaxis dc planning Subjective ROS Limited/Unobtainable: No Constitutional: Reports: no symptoms HEENT: Repors: no symptoms Allergies: Coded Allergies: No Known Allergies (Unverified , 06/17/16) Objective Last 24 Hour Vital Signs Date Time Temp Pulse Resp B/P Pulse Ox O2 Delivery O2 Flow Rate FiO2 10/26/16 08:31 82 21 100 Mechanical Ventilator 30 10/26/16 08:29 30 10/26/16 08:29 83 20 99 Mechanical Ventilator 30 10/26/16 08:00 30 10/26/16 07:15 80 25 30 10/26/16 05:31 60 16 30 10/26/16 04:00 71 10/26/16 04:00 30 10/26/16 04:00 97.9 71 16 104/72 100 Mechanical Ventilator 30 10/26/16 03:15 78 20 30 10/26/16 00:59 99.1 89 17 112/83 100 Mechanical Ventilator 30 10/26/16 00:38 83 20 100 Mechanical Ventilator 30 10/26/16 00:38 82 20 30 10/26/16 00:25 81 20 100 Mechanical Ventilator 30 10/26/16 00:25 30 10/26/16 00:00 71 10/26/16 00:00 30 10/25/16 22:55 75 20 30 10/25/16 20:51 84 20 30 10/25/16 20:00 98.0 77 16 103/67 100 Mechanical Ventilator 30 10/25/16 20:00 72 10/25/16 20:00 30 10/25/16 19:06 90 20 30 10/25/16 19:05 90 20 100 Mechanical Ventilator 30 10/25/16 18:55 91 20 100 Mechanical Ventilator 30 10/25/16 18:55 30 10/25/16 17:05 83 18 30 10/25/16 16:09 79 10/25/16 16:04 30 10/25/16 16:00 97.3 72 16 106/64 100 Mechanical Ventilator 30 10/25/16 14:56 81 18 30 10/25/16 13:29 30 10/25/16 13:29 81 19 100 Mechanical Ventilator 30 10/25/16 12:56 75 18 30 10/25/16 12:00 30 10/25/16 12:00 85 10/25/16 12:00 98.4 85 17 101/68 100 Mechanical Ventilator 30 10/25/16 11:12 85 22 30 Intake and Output 10/25/16 10/26/16 19:00 07:00 Intake Total 500 ml 420 ml Output Total 250 ml 300 ml Balance 250 ml 120 ml Free Water 180 ml 20 ml Tube Feeding 320 ml 400 ml Output Urine Total 250 ml 300 ml # Bowel Movements 1 Objective Status: awake HEENT: atraumatic, normocephalic Lungs: clear, decreased breath sounds Heart: HR/BP stable Abdomen: soft, non-tender Extremities: no C/C/E, edema Current Medications Medications (Trade) Dose Ordered Sig/Shraddha Route PRN Reason Start Time Stop Time Status Last Admin Dose Admin Acetaminophen (Tylenol) 650 mg Q4H PRN ORAL fever>100.5 10/05/16 11:30 11/04/16 11:29 Albuterol/ Ipratropium (DuoNeb 0.5-3(2.5)mg/3ml) 3 ml Q4H PRN HHN Shortness of Breath 10/24/16 13:30 10/29/16 13:29 10/26/16 08:28 Dextrose (Dextrose 50%) STAT PRN IV Hypoglycemia 10/05/16 11:30 11/04/16 11:29 Insulin Aspart (NovoLOG) start when feeding started Q6HR SUBQ 10/05/16 12:00 11/04/16 11:59 10/24/16 17:56 Lorazepam (Ativan 2mg/ml 1ml) 1 mg Q4H PRN IV For Anxiety 10/20/16 21:30 10/27/16 21:29 10/20/16 23:20 Metoclopramide HCl (Reglan) 10 mg THREE TIMES A DAY GT 10/24/16 19:00 11/23/16 18:59 10/26/16 08:21 Ondansetron HCl (Zofran) 4 mg Q6H PRN IVP Nausea & Vomiting 10/05/16 11:30 11/04/16 11:29 10/24/16 09:17 Pantoprazole (Protonix) 40 mg DAILY GT 10/25/16 09:00 5/21/17 08:59 10/26/16 08:22 Polyethylene Glycol (Miralax) 17 gm DAILYPRN PRN GT Constipation 10/25/16 01:00 11/24/16 00:59 REN WRIGHT Oct 26, 2016 09:27
[2016-10-26 12:13] VITALS: BP 90/66
[2016-10-26 16:00] VITALS: BP 97/67
--- NOTE | 2016-10-26 18:00 | Internal Med Progress Note ---
Subjective Date of Service: Oct 26, 2016 Physician Name Tadeo Verdin Attending Physician Steve Rader MD Current Medications Medications (Trade) Dose Ordered Sig/Shraddha Route PRN Reason Start Time Stop Time Status Last Admin Dose Admin Acetaminophen (Tylenol) 650 mg Q4H PRN ORAL fever>100.5 10/05/16 11:30 11/04/16 11:29 Albuterol/ Ipratropium (DuoNeb 0.5-3(2.5)mg/3ml) 3 ml Q4H PRN HHN Shortness of Breath 10/24/16 13:30 10/29/16 13:29 10/26/16 12:55 Dextrose (Dextrose 50%) STAT PRN IV Hypoglycemia 10/05/16 11:30 11/04/16 11:29 Insulin Aspart (NovoLOG) start when feeding started Q6HR SUBQ 10/05/16 12:00 11/04/16 11:59 10/24/16 17:56 Lorazepam (Ativan 2mg/ml 1ml) 1 mg Q4H PRN IV For Anxiety 10/20/16 21:30 10/27/16 21:29 10/20/16 23:20 Metoclopramide HCl (Reglan) 10 mg THREE TIMES A DAY GT 10/24/16 19:00 11/23/16 18:59 10/26/16 16:58 Ondansetron HCl (Zofran) 4 mg Q6H PRN IVP Nausea & Vomiting 10/05/16 11:30 11/04/16 11:29 10/24/16 09:17 Pantoprazole (Protonix) 40 mg DAILY GT 10/25/16 09:00 11/24/16 08:59 10/26/16 08:22 Polyethylene Glycol (Miralax) 17 gm DAILYPRN PRN GT Constipation 10/25/16 01:00 11/24/16 00:59 Allergies: Coded Allergies: No Known Allergies (Unverified , 06/17/16) ROS Limited/Unobtainable: Yes Subjective 66 YO M admitted with respiratory failure. JORDAN. Intubated and sedated. Await placement at halfway acute care facility. Cover for Stanislav Hdz-Dr Rader. Objective Last Vital Signs Date Time Temp Pulse Resp B/P Pulse Ox O2 Delivery O2 Flow Rate FiO2 10/26/16 16:50 84 22 30 10/26/16 16:00 97.2 97/67 100 Mechanical Ventilator 10/24/16 13:18 15.0 Intake and Output 10/25/16 10/26/16 19:00 07:00 Intake Total 500 ml 420 ml Output Total 250 ml 300 ml Balance 250 ml 120 ml Free Water 180 ml 20 ml Tube Feeding 320 ml 400 ml Output Urine Total 250 ml 300 ml # Bowel Movements 1 Objective General Appearance: moderate distress, thin EENT: PERRL/EOMI, normal ENT inspection Neck: non-tender, normal alignment, supple Cardiovascular: normal peripheral pulses, normal rate, regular rhythm, no gallop/murmur, no JVD Respiratory/Chest: Trach; Mech Vent; trach; respiratory distress, crackles/ rales, rhonchi - bilaterally, expiratory wheezing Abdomen: non tender, soft, no organomegaly, no mass, decreased bowel sounds Extremities: normal range of motion Skin: normal pigmentation, warm/dry Assessment/Plan Problem List: (1) Lung nodule (2) DVT (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 (3) Acute respiratory failure Assessment & Plan: S/P tracheostomy 10/03/16. Failed weaning trial. Cont vent per pulmonary (4) COPD exacerbation Assessment & Plan: Continue duoneb. Continue vent per pulmonary. (5) Pneumonia Assessment & Plan: Observe off antibiotics per ID (6) Leukocytosis Assessment & Plan: Continue off antibiotics per ID. (7) Dysphagia Assessment & Plan: See GI consult- S/P PEG 10/04/16. Assessment/Plan Discharge Planning: snf acute caree facility when bed available-see soc work note. TADEO VERDIN Oct 26, 2016 18:00
[2016-10-26 20:00] VITALS: BP 120/70
[2016-10-27] VITALS (7 sets, daily range): BP systolic 95–120; BP diastolic 42–72
[2016-10-27] MEDS: NovoLOG Insulin Flexpen SUBQ SCH ×4 (00:18→17:37)
[2016-10-27] MEDS: DuoNeb 0.5-3(2.5)mg/3ml neb HHN PRN ×5 (01:09→17:29)
[2016-10-27 05:26] LABS: BASOPHILS % (AUTO) 2.3 % (0.0-2.0); EOSINOPHILS % (AUTO) 2.1 % (0.0-3.0); LYMPHOCYTES % (AUTO) 31.2 % (20.0-45.0); MEAN CORPUSCULAR HEMOGLOBIN 27.3 PG (27.0-31.0); MEAN CORPUSCULAR HGB CONC 29.9 G/DL (32.0-36.0); MEAN CORPUSCULAR VOLUME 91 FL (80-99); MEAN PLATELET VOLUME 5.7 FL (6.5-10.1); MONOCYTES % (AUTO) 11.7 % (1.0-10.0); NEUTROPHILS % (AUTO) 52.7 % (45.0-75.0); PLATELET COUNT 338 K/UL (150-450); RED CELL DISTRIBUTION WIDTH 15.3 % (11.6-14.8); WHITE BLOOD COUNT 5.4 K/UL (4.8-10.8)
[2016-10-27 05:42] LABS: ANION GAP 12 (5-15); CALCIUM 9.6 mg/dL (8.6-10.2); CARBON DIOXIDE 29 mEQ/L (20-30); CHLORIDE 97 mEQ/L (98-107); CREATININE 0.6 mg/dL (0.7-1.2); GLOMERULAR FILTRATION RATE > 60 mL/min (>60); HEMOLYSIS 11; POTASSIUM 4.1 mEQ/L (3.4-4.9); SODIUM 138 mEQ/L (135-145)
[2016-10-27] MEDS: Pantoprazole 40mg pkt GT SCH (08:29)
--- NOTE | 2016-10-27 09:03 | Infectious Diseases Prog Note ---
Assessment/Plan Assessment/Plan A: Pneumonia with Pseudomonas s/p RX Leukocytosis resolved COPD VDRF Pulmonary HPN P: observe off antibiotics Subjective ROS Limited/Unobtainable: Yes Respiratory: Reports: dry cough Allergies: Coded Allergies: No Known Allergies (Unverified , 06/17/16) Objective Vital Signs Last 24 Hour Vital Signs Date Time Temp Pulse Resp B/P Pulse Ox O2 Delivery O2 Flow Rate FiO2 10/27/16 08:07 98.0 85 19 98/67 100 Mechanical Ventilator 10/27/16 05:10 77 22 100 Mechanical Ventilator 30 10/27/16 05:00 79 22 99 Mechanical Ventilator 30 10/27/16 05:00 30 10/27/16 04:53 89 22 30 10/27/16 04:00 30 10/27/16 04:00 97.7 78 18 120/70 100 Mechanical Ventilator 10/27/16 03:50 69 10/27/16 03:10 88 20 30 10/27/16 01:07 89 28 30 10/27/16 01:00 90 22 100 Mechanical Ventilator 30 10/27/16 00:50 89 22 99 Mechanical Ventilator 30 10/27/16 00:50 30 10/27/16 00:19 30 10/27/16 00:00 81 10/27/16 00:00 97.6 76 18 106/72 100 Mechanical Ventilator 30 10/26/16 23:42 81 10/26/16 23:08 88 20 30 10/26/16 21:11 90 22 30 10/26/16 21:11 85 22 100 Mechanical Ventilator 30 10/26/16 21:00 86 22 99 Mechanical Ventilator 30 10/26/16 21:00 30 10/26/16 20:00 98.6 60 18 120/70 96 Mechanical Ventilator 30 10/26/16 20:00 73 10/26/16 20:00 30 10/26/16 18:42 65 16 30 10/26/16 16:50 84 22 30 10/26/16 16:00 67 10/26/16 16:00 30 10/26/16 16:00 97.2 81 16 97/67 100 Mechanical Ventilator 30 10/26/16 15:14 84 22 30 10/26/16 13:05 82 21 30 10/26/16 12:57 86 20 100 Mechanical Ventilator 30 10/26/16 12:56 30 10/26/16 12:56 85 19 99 Mechanical Ventilator 30 10/26/16 12:13 98.1 91 23 90/66 99 Mechanical Ventilator 30 10/26/16 12:00 30 10/26/16 12:00 85 10/26/16 11:17 81 18 30 10/26/16 09:15 82 31 30 Height (Feet): 6 Height (Inches): 2.00 Weight (Pounds): 126 General Appearance: no acute distress HEENT: status post trach Respiratory/Chest: lungs clear, other - on ventilator Cardiovascular: normal rate Abdomen: soft, non tender, other - GT feeding Extremities: no edema Neurologic/Psychiatric: alert, responsive Laboratory Tests Test 10/27/16 03:45 White Blood Count 5.4 K/UL (4.8-10.8) Red Blood Count 4.30 M/UL (4.70-6.10) L Hemoglobin 11.7 G/DL (14.2-18.0) L Hematocrit 39.3 % (42.0-52.0) L Mean Corpuscular Volume 91 FL (80-99) Mean Corpuscular Hemoglobin 27.3 PG (27.0-31.0) Mean Corpuscular Hemoglobin Concent 29.9 G/DL (32.0-36.0) L Red Cell Distribution Width 15.3 % (11.6-14.8) H Platelet Count 338 K/UL (150-450) Mean Platelet Volume 5.7 FL (6.5-10.1) L Neutrophils (%) (Auto) 52.7 % (45.0-75.0) Lymphocytes (%) (Auto) 31.2 % (20.0-45.0) Monocytes (%) (Auto) 11.7 % (1.0-10.0) H Eosinophils (%) (Auto) 2.1 % (0.0-3.0) Basophils (%) (Auto) 2.3 % (0.0-2.0) H Sodium Level 138 mEQ/L (135-145) Potassium Level 4.1 mEQ/L (3.4-4.9) Chloride Level 97 mEQ/L (98-107) L Carbon Dioxide Level 29 mEQ/L (20-30) Anion Gap 12 (5-15) Blood Urea Nitrogen 10 mg/dL (7-23) Creatinine 0.6 mg/dL (0.7-1.2) L Estimat Glomerular Filtration Rate > 60 mL/min (>60) Glucose Level 34 mg/dL (74-106) *L Calcium Level 9.6 mg/dL (8.6-10.2) Current Medications Medications (Trade) Dose Ordered Sig/Shraddha Route PRN Reason Start Time Stop Time Status Last Admin Dose Admin Acetaminophen (Tylenol) 650 mg Q4H PRN ORAL fever>100.5 10/05/16 11:30 11/04/16 11:29 Albuterol/ Ipratropium (DuoNeb 0.5-3(2.5)mg/3ml) 3 ml Q4H PRN HHN Shortness of Breath 10/24/16 13:30 10/29/16 13:29 10/27/16 05:09 Dextrose (Dextrose 50%) STAT PRN IV Hypoglycemia 10/05/16 11:30 11/04/16 11:29 Insulin Aspart (NovoLOG) start when feeding started Q6HR SUBQ 10/05/16 12:00 11/04/16 11:59 10/27/16 00:18 Lorazepam (Ativan 2mg/ml 1ml) 1 mg Q4H PRN IV For Anxiety 10/20/16 21:30 10/27/16 21:29 10/20/16 23:20 Metoclopramide HCl (Reglan) 10 mg THREE TIMES A DAY GT 10/24/16 19:00 11/23/16 18:59 10/27/16 08:29 Ondansetron HCl (Zofran) 4 mg Q6H PRN IVP Nausea & Vomiting 10/05/16 11:30 11/04/16 11:29 10/24/16 09:17 Pantoprazole (Protonix) 40 mg DAILY GT 10/25/16 09:00 11/24/16 08:59 10/27/16 08:29 Polyethylene Glycol (Miralax) 17 gm DAILYPRN PRN GT Constipation 10/25/16 01:00 11/24/16 00:59 LINNETTE DIAZ Oct 27, 2016 09:03
--- NOTE | 2016-10-27 17:50 | Internal Med Progress Note ---
Subjective Date of Service: Oct 27, 2016 Physician Name Tadeo Verdin Attending Physician Steve Rader MD Current Medications Medications (Trade) Dose Ordered Sig/Shraddha Route PRN Reason Start Time Stop Time Status Last Admin Dose Admin Acetaminophen (Tylenol) 650 mg Q4H PRN ORAL fever>100.5 10/05/16 11:30 11/04/16 11:29 Albuterol/ Ipratropium (DuoNeb 0.5-3(2.5)mg/3ml) 3 ml Q4H PRN HHN Shortness of Breath 10/24/16 13:30 10/29/16 13:29 10/27/16 17:29 Dextrose (Dextrose 50%) STAT PRN IV Hypoglycemia 10/05/16 11:30 11/04/16 11:29 Insulin Aspart (NovoLOG) start when feeding started Q6HR SUBQ 10/05/16 12:00 11/04/16 11:59 10/27/16 17:37 Lorazepam (Ativan 2mg/ml 1ml) 1 mg Q4H PRN IV For Anxiety 10/20/16 21:30 10/27/16 21:29 10/20/16 23:20 Metoclopramide HCl (Reglan) 10 mg THREE TIMES A DAY GT 10/24/16 19:00 11/23/16 18:59 10/27/16 17:36 Ondansetron HCl (Zofran) 4 mg Q6H PRN IVP Nausea & Vomiting 10/05/16 11:30 11/04/16 11:29 10/24/16 09:17 Pantoprazole (Protonix) 40 mg DAILY GT 10/25/16 09:00 11/24/16 08:59 10/27/16 08:29 Polyethylene Glycol (Miralax) 17 gm DAILYPRN PRN GT Constipation 10/25/16 01:00 11/24/16 00:59 Allergies: Coded Allergies: No Known Allergies (Unverified , 06/17/16) Subjective 66 YO M admitted with respiratory failure. JORDAN. Intubated and sedated. Await placement at senior living acute care facility. Cover for Int [facility]-Dr Rader. Hypoglycemic overnight. Objective Last Vital Signs Date Time Temp Pulse Resp B/P Pulse Ox O2 Delivery O2 Flow Rate FiO2 10/27/16 17:26 76 17 30 10/27/16 16:10 97.9 95/67 99 Mechanical Ventilator 10/24/16 13:18 15.0 Laboratory Tests Test 10/27/16 03:45 White Blood Count 5.4 K/UL (4.8-10.8) Red Blood Count 4.30 M/UL (4.70-6.10) L Hemoglobin 11.7 G/DL (14.2-18.0) L Hematocrit 39.3 % (42.0-52.0) L Mean Corpuscular Volume 91 FL (80-99) Mean Corpuscular Hemoglobin 27.3 PG (27.0-31.0) Mean Corpuscular Hemoglobin Concent 29.9 G/DL (32.0-36.0) L Red Cell Distribution Width 15.3 % (11.6-14.8) H Platelet Count 338 K/UL (150-450) Mean Platelet Volume 5.7 FL (6.5-10.1) L Neutrophils (%) (Auto) 52.7 % (45.0-75.0) Lymphocytes (%) (Auto) 31.2 % (20.0-45.0) Monocytes (%) (Auto) 11.7 % (1.0-10.0) H Eosinophils (%) (Auto) 2.1 % (0.0-3.0) Basophils (%) (Auto) 2.3 % (0.0-2.0) H Sodium Level 138 mEQ/L (135-145) Potassium Level 4.1 mEQ/L (3.4-4.9) Chloride Level 97 mEQ/L (98-107) L Carbon Dioxide Level 29 mEQ/L (20-30) Anion Gap 12 (5-15) Blood Urea Nitrogen 10 mg/dL (7-23) Creatinine 0.6 mg/dL (0.7-1.2) L Estimat Glomerular Filtration Rate > 60 mL/min (>60) Glucose Level 34 mg/dL (74-106) *L Calcium Level 9.6 mg/dL (8.6-10.2) Intake and Output 10/26/16 10/27/16 19:00 07:00 Intake Total 400 ml 580 ml Output Total 250 ml 900 ml Balance 150 ml -320 ml Free Water 120 ml 60 ml Tube Feeding 280 ml 520 ml Output Urine Total 250 ml 900 ml # Bowel Movements 3 Objective General Appearance: moderate distress, thin EENT: PERRL/EOMI, normal ENT inspection Neck: non-tender, normal alignment, supple Cardiovascular: normal peripheral pulses, normal rate, regular rhythm, no gallop/murmur, no JVD Respiratory/Chest: Trach; Mech Vent; trach; respiratory distress, crackles/ rales, rhonchi - bilaterally, expiratory wheezing Abdomen: non tender, soft, no organomegaly, no mass, decreased bowel sounds Extremities: normal range of motion Skin: normal pigmentation, warm/dry Assessment/Plan Problem List: (1) Lung nodule (2) DVT (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 (3) Acute respiratory failure Assessment & Plan: S/P tracheostomy 10/03/16. Failed weaning trial. Cont vent per pulmonary (4) COPD exacerbation Assessment & Plan: Continue duoneb. Continue vent per pulmonary. (5) Pneumonia Assessment & Plan: Observe off antibiotics per ID (6) Leukocytosis Assessment & Plan: Continue off antibiotics per ID. (7) Dysphagia Assessment & Plan: See GI consult- S/P PEG 10/04/16. (8) Hypoglycemia Assessment & Plan: D50 prn; decrease insulin sliding scale. Status: not improved Assessment/Plan Discharge Planning: [facility] acute caree facility when bed available-see soc work note. TADEO VERDIN Oct 27, 2016 17:50
--- NOTE | 2016-10-27 19:09 | Pulmonology Progress Note ---
Assessment/Plan Problems: (1) Respiratory failure (2) COPD exacerbation (3) Emphysema of lung Assessment/Plan not tolerating feeding titrate fio2 titrate vent setting watch cbb, bmp dvt prophylaxis d50 for episode of hypoglycemia dc planning Subjective ROS Limited/Unobtainable: No Allergies: Coded Allergies: No Known Allergies (Unverified , 06/17/16) Objective Last 24 Hour Vital Signs Date Time Temp Pulse Resp B/P Pulse Ox O2 Delivery O2 Flow Rate FiO2 10/27/16 18:44 85 20 30 10/27/16 17:26 76 17 30 10/27/16 16:10 97.9 87 20 95/67 99 Mechanical Ventilator 10/27/16 16:00 30 10/27/16 16:00 6 10/27/16 15:06 75 16 30 10/27/16 13:14 85 19 30 10/27/16 12:12 97.5 91 18 96/65 100 Mechanical Ventilator 10/27/16 12:00 30 10/27/16 12:00 67 10/27/16 10:56 88 18 30 10/27/16 09:10 89 17 30 10/27/16 08:07 98.0 85 19 98/67 100 Mechanical Ventilator 10/27/16 08:00 78 10/27/16 08:00 30 10/27/16 06:39 88 17 30 10/27/16 05:10 77 22 100 Mechanical Ventilator 30 10/27/16 05:00 79 22 99 Mechanical Ventilator 30 10/27/16 05:00 30 10/27/16 04:53 89 22 30 10/27/16 04:00 30 10/27/16 04:00 97.7 78 18 120/70 100 Mechanical Ventilator 10/27/16 03:50 69 10/27/16 03:10 88 20 30 10/27/16 01:07 89 28 30 10/27/16 01:00 90 22 100 Mechanical Ventilator 30 10/27/16 00:50 89 22 99 Mechanical Ventilator 30 10/27/16 00:50 30 10/27/16 00:19 30 10/27/16 00:00 81 10/27/16 00:00 97.6 76 18 106/72 100 Mechanical Ventilator 30 10/26/16 23:42 81 10/26/16 23:08 88 20 30 10/26/16 21:11 90 22 30 10/26/16 21:11 85 22 100 Mechanical Ventilator 30 10/26/16 21:00 86 22 99 Mechanical Ventilator 30 10/26/16 21:00 30 10/26/16 20:00 98.6 60 18 120/70 96 Mechanical Ventilator 30 10/26/16 20:00 73 10/26/16 20:00 30 Intake and Output 10/26/16 10/27/16 19:00 07:00 Intake Total 400 ml 580 ml Output Total 250 ml 900 ml Balance 150 ml -320 ml Free Water 120 ml 60 ml Tube Feeding 280 ml 520 ml Output Urine Total 250 ml 900 ml # Bowel Movements 3 Objective Status: awake HEENT: atraumatic, normocephalic Lungs: clear, decreased breath sounds Heart: HR/BP stable Abdomen: soft, non-tender Extremities: no C/C/E, edema Laboratory Tests 10/27/16 03:45: White Blood Count 5.4, Red Blood Count 4.30L, Hemoglobin 11.7L, Hematocrit 39.3L , Mean Corpuscular Volume 91, Mean Corpuscular Hemoglobin 27.3, Mean Corpuscular Hemoglobin Concent 29.9L, Red Cell Distribution Width 15.3H, Platelet Count 338, Mean Platelet Volume 5.7L, Neutrophils (%) (Auto) 52.7, Lymphocytes (%) (Auto) 31.2, Monocytes (%) (Auto) 11.7H, Eosinophils (%) (Auto) 2.1, Basophils (%) (Auto) 2.3H, Sodium Level 138, Potassium Level 4.1, Chloride Level 97L, Carbon Dioxide Level 29, Anion Gap 12, Blood Urea Nitrogen 10, Creatinine 0.6L, Estimat Glomerular Filtration Rate > 60, Glucose Level 34*L, Calcium Level 9.6 Current Medications Medications (Trade) Dose Ordered Sig/Shraddha Route PRN Reason Start Time Stop Time Status Last Admin Dose Admin Acetaminophen (Tylenol) 650 mg Q4H PRN ORAL fever>100.5 10/05/16 11:30 11/04/16 11:29 Albuterol/ Ipratropium (DuoNeb 0.5-3(2.5)mg/3ml) 3 ml Q4H PRN HHN Shortness of Breath 10/24/16 13:30 10/29/16 13:29 10/27/16 17:29 Dextrose (Dextrose 50%) STAT PRN IV Hypoglycemia 10/05/16 11:30 11/04/16 11:29 Insulin Aspart (NovoLOG) start when feeding started Q6HR SUBQ 10/05/16 12:00 11/04/16 11:59 10/27/16 17:37 Lorazepam (Ativan 2mg/ml 1ml) 1 mg Q4H PRN IV For Anxiety 10/20/16 21:30 10/27/16 21:29 10/20/16 23:20 Metoclopramide HCl (Reglan) 10 mg THREE TIMES A DAY GT 10/24/16 19:00 11/23/16 18:59 10/27/16 17:36 Ondansetron HCl (Zofran) 4 mg Q6H PRN IVP Nausea & Vomiting 10/05/16 11:30 11/04/16 11:29 10/24/16 09:17 Pantoprazole (Protonix) 40 mg DAILY GT 10/25/16 09:00 11/24/16 08:59 10/27/16 08:29 Polyethylene Glycol (Miralax) 17 gm DAILYPRN PRN GT Constipation 10/25/16 01:00 11/24/16 00:59 REN WRIGHT Oct 27, 2016 19:09
[2016-10-28] VITALS: BP 106/75
[2016-10-28 04:00] VITALS: BP 104/74
[2016-10-28 05:53] LABS: BASOPHILS % (AUTO) 1.7 % (0.0-2.0); LYMPHOCYTES % (AUTO) 30.2 % (20.0-45.0); MEAN CORPUSCULAR HEMOGLOBIN 27.7 PG (27.0-31.0); MEAN CORPUSCULAR HGB CONC 30.7 G/DL (32.0-36.0); MEAN CORPUSCULAR VOLUME 90 FL (80-99); MEAN PLATELET VOLUME 6.4 FL (6.5-10.1); MONOCYTES % (AUTO) 11.5 % (1.0-10.0); NEUTROPHILS % (AUTO) 52.6 % (45.0-75.0); PLATELET COUNT 355 K/UL (150-450); RED CELL DISTRIBUTION WIDTH 15.3 % (11.6-14.8)
[2016-10-28] MEDS: NovoLOG Insulin Flexpen SUBQ SCH ×4 (06:00→17:37)
[2016-10-28 06:27] LABS: ANION GAP 15 (5-15); CARBON DIOXIDE 27 mEQ/L (20-30); CHLORIDE 98 mEQ/L (98-107); CREATININE 0.6 mg/dL (0.7-1.2); GLOMERULAR FILTRATION RATE > 60 mL/min (>60); HEMOLYSIS 0; POTASSIUM 3.6 mEQ/L (3.4-4.9); SODIUM 140 mEQ/L (135-145)
[2016-10-28 08:00] VITALS: BP 100/67
[2016-10-28] MEDS: DuoNeb 0.5-3(2.5)mg/3ml neb HHN PRN (08:17)
[2016-10-28] MEDS: Pantoprazole 40mg pkt GT SCH (08:51)
--- NOTE | 2016-10-28 11:30 | Pulmonology Progress Note ---
Assessment/Plan Problems: (1) Respiratory failure (2) COPD exacerbation (3) Emphysema of lung Assessment/Plan doing better titrate fio2 titrate vent setting watch cbb, bmp dvt prophylaxis d50 for episode of hypoglycemia dc planning Subjective Constitutional: Reports: no symptoms HEENT: Repors: no symptoms Cardiovascular: Reports: no symptoms Allergies: Coded Allergies: No Known Allergies (Unverified , 06/17/16) Objective Last 24 Hour Vital Signs Date Time Temp Pulse Resp B/P Pulse Ox O2 Delivery O2 Flow Rate FiO2 10/28/16 09:08 91 19 30 10/28/16 08:17 91 19 30 10/28/16 08:17 30 10/28/16 08:17 91 24 96 Mechanical Ventilator 30 10/28/16 08:00 96.8 68 16 100/67 90 Mechanical Ventilator 30 10/28/16 08:00 79 10/28/16 08:00 30 10/28/16 05:08 78 21 30 10/28/16 04:10 30 10/28/16 04:00 86 10/28/16 04:00 97.9 79 19 104/74 95 Mechanical Ventilator 10/28/16 02:43 80 20 30 10/28/16 00:55 94 18 30 10/28/16 00:06 76 10/28/16 00:01 30 10/28/16 00:00 98.1 75 18 106/75 100 Mechanical Ventilator 10/27/16 22:51 70 18 30 10/27/16 20:51 81 18 30 10/27/16 20:22 98.2 76 19 95/66 100 Mechanical Ventilator 10/27/16 20:00 65 10/27/16 20:00 30 10/27/16 18:44 85 20 30 10/27/16 17:26 76 17 30 10/27/16 16:10 97.9 87 20 95/67 99 Mechanical Ventilator 10/27/16 16:00 30 10/27/16 16:00 6 10/27/16 15:06 75 16 30 10/27/16 13:14 85 19 30 10/27/16 12:12 97.5 91 18 96/65 100 Mechanical Ventilator 10/27/16 12:00 30 10/27/16 12:00 67 Intake and Output 10/27/16 10/28/16 19:00 07:00 Intake Total 700 ml 220 ml Output Total 250 ml 200 ml Balance 450 ml 20 ml Free Water 300 ml 100 ml Tube Feeding 400 ml 120 ml Output Urine Total 250 ml 200 ml # Voids 1 # Bowel Movements 1 1 Objective Status: awake HEENT: atraumatic, normocephalic Lungs: clear, decreased breath sounds Heart: HR/BP stable Abdomen: soft, non-tender Extremities: no C/C/E, edema Laboratory Tests 10/28/16 03:20: White Blood Count 5.0, Red Blood Count 3.60L, Hemoglobin 10.0L, Hematocrit 32.4L , Mean Corpuscular Volume 90, Mean Corpuscular Hemoglobin 27.7, Mean Corpuscular Hemoglobin Concent 30.7L, Red Cell Distribution Width 15.3H, Platelet Count 355, Mean Platelet Volume 6.4L, Neutrophils (%) (Auto) 52.6, Lymphocytes (%) (Auto) 30.2, Monocytes (%) (Auto) 11.5H, Eosinophils (%) (Auto) 4.0H, Basophils (%) (Auto) 1.7, Sodium Level 140, Potassium Level 3.6, Chloride Level 98, Carbon Dioxide Level 27, Anion Gap 15, Blood Urea Nitrogen 10, Creatinine 0.6L, Estimat Glomerular Filtration Rate > 60, Glucose Level 91, Calcium Level 9.0 Current Medications Medications (Trade) Dose Ordered Sig/Shraddha Route PRN Reason Start Time Stop Time Status Last Admin Dose Admin Acetaminophen (Tylenol) 650 mg Q4H PRN ORAL fever>100.5 10/05/16 11:30 11/04/16 11:29 Albuterol/ Ipratropium (DuoNeb 0.5-3(2.5)mg/3ml) 3 ml Q4H PRN HHN Shortness of Breath 10/24/16 13:30 10/29/16 13:29 10/28/16 08:17 Dextrose (Dextrose 50%) STAT PRN IV Hypoglycemia 10/05/16 11:30 11/04/16 11:29 Insulin Aspart (NovoLOG) start when feeding started Q6HR SUBQ 10/05/16 12:00 11/04/16 11:59 10/27/16 17:37 Metoclopramide HCl (Reglan) 10 mg THREE TIMES A DAY GT 10/24/16 19:00 11/23/16 18:59 10/28/16 08:51 Ondansetron HCl (Zofran) 4 mg Q6H PRN IVP Nausea & Vomiting 10/05/16 11:30 11/04/16 11:29 10/24/16 09:17 Pantoprazole (Protonix) 40 mg DAILY GT 10/25/16 09:00 11/24/16 08:59 10/28/16 08:51 Polyethylene Glycol (Miralax) 17 gm DAILYPRN PRN GT Constipation 10/25/16 01:00 11/24/16 00:59 REN WRIGHT Oct 28, 2016 11:30
[2016-10-28 12:00] VITALS: BP 105/67
--- NOTE | 2016-10-28 12:14 | Infectious Diseases Prog Note ---
Assessment/Plan Assessment/Plan ASSESSMENT: 66 y/o male with: // COPD exacerbation - delayed SCx 4+ PSA pt has increased secretions - CXR 09/27: Lungs are hyperinflated. No new infiltrates - negative: influenza // Leukocytosis - SP ( post op, 10/01 SP steroids ) // Diarrhea x 1 resolved C Diff Neg // Febrile low grade // HIV and Hep B/C : neg // - PEG 10/04 // Acute VDRF - intubated 09/20, 10/03 SP trach // Severe pulmonary HTN / grade I diastolic dysfunction / mod TR // Pulmonary nodules // Chronic RLE DVT // Tobacco abuse // [facility] resident // Negative MRSA, VRE screens // NKDA // Full Code PLAN: - Monitor pt off of AB Rx ( 10/17 SP Ceftazidime d# 14 ) ( 10/13 SP Jairon nebs d# 14 ) ( 10/11 SP Flagyl d# 10 ) ( 10/04 SP oral Vanco d# 3 ) ( 09/24 SP amikacin, invanz d# 5 / 5 ) ( 09/21 SP IV vancomycin d# 2 ) - taper steroids per pulm - monitor CBC, temperatures - monitor BMP - monitor CXR - vent support, wean as tolerated. Subjective Constitutional: Denies: anorexia, chills, drenching sweats, fatigue, fever, no symptoms, other Allergies: Coded Allergies: No Known Allergies (Unverified , 06/17/16) Objective Vital Signs Last 24 Hour Vital Signs Date Time Temp Pulse Resp B/P Pulse Ox O2 Delivery O2 Flow Rate FiO2 10/28/16 12:00 30 10/28/16 11:29 78 16 30 10/28/16 09:08 91 19 30 10/28/16 08:17 91 19 30 10/28/16 08:17 30 10/28/16 08:17 91 24 96 Mechanical Ventilator 30 10/28/16 08:00 96.8 68 16 100/67 90 Mechanical Ventilator 30 10/28/16 08:00 79 10/28/16 08:00 30 10/28/16 05:08 78 21 30 10/28/16 04:10 30 10/28/16 04:00 86 10/28/16 04:00 97.9 79 19 104/74 95 Mechanical Ventilator 10/28/16 02:43 80 20 30 10/28/16 00:55 94 18 30 10/28/16 00:06 76 10/28/16 00:01 30 10/28/16 00:00 98.1 75 18 106/75 100 Mechanical Ventilator 10/27/16 22:51 70 18 30 10/27/16 20:51 81 18 30 10/27/16 20:22 98.2 76 19 95/66 100 Mechanical Ventilator 10/27/16 20:00 65 10/27/16 20:00 30 10/27/16 18:44 85 20 30 10/27/16 17:26 76 17 30 10/27/16 16:10 97.9 87 20 95/67 99 Mechanical Ventilator 10/27/16 16:00 30 10/27/16 16:00 6 10/27/16 15:06 75 16 30 10/27/16 13:14 85 19 30 Height (Feet): 6 Height (Inches): 2.00 Weight (Pounds): 126 HEENT: anicteric Respiratory/Chest: no respiratory distress Cardiovascular: regularly irregular Abdomen: non distended Laboratory Tests Test 10/28/16 03:20 White Blood Count 5.0 K/UL (4.8-10.8) Red Blood Count 3.60 M/UL (4.70-6.10) L Hemoglobin 10.0 G/DL (14.2-18.0) L Hematocrit 32.4 % (42.0-52.0) L Mean Corpuscular Volume 90 FL (80-99) Mean Corpuscular Hemoglobin 27.7 PG (27.0-31.0) Mean Corpuscular Hemoglobin Concent 30.7 G/DL (32.0-36.0) L Red Cell Distribution Width 15.3 % (11.6-14.8) H Platelet Count 355 K/UL (150-450) Mean Platelet Volume 6.4 FL (6.5-10.1) L Neutrophils (%) (Auto) 52.6 % (45.0-75.0) Lymphocytes (%) (Auto) 30.2 % (20.0-45.0) Monocytes (%) (Auto) 11.5 % (1.0-10.0) H Eosinophils (%) (Auto) 4.0 % (0.0-3.0) H Basophils (%) (Auto) 1.7 % (0.0-2.0) Sodium Level 140 mEQ/L (135-145) Potassium Level 3.6 mEQ/L (3.4-4.9) Chloride Level 98 mEQ/L (98-107) Carbon Dioxide Level 27 mEQ/L (20-30) Anion Gap 15 (5-15) Blood Urea Nitrogen 10 mg/dL (7-23) Creatinine 0.6 mg/dL (0.7-1.2) L Estimat Glomerular Filtration Rate > 60 mL/min (>60) Glucose Level 91 mg/dL (74-106) Calcium Level 9.0 mg/dL (8.6-10.2) Current Medications Medications (Trade) Dose Ordered Sig/Shraddha Route PRN Reason Start Time Stop Time Status Last Admin Dose Admin Acetaminophen (Tylenol) 650 mg Q4H PRN ORAL fever>100.5 10/05/16 11:30 11/04/16 11:29 Albuterol/ Ipratropium (DuoNeb 0.5-3(2.5)mg/3ml) 3 ml Q4H PRN HHN Shortness of Breath 10/24/16 13:30 10/29/16 13:29 10/28/16 08:17 Dextrose (Dextrose 50%) STAT PRN IV Hypoglycemia 10/05/16 11:30 11/04/16 11:29 Insulin Aspart (NovoLOG) start when feeding started Q6HR SUBQ 10/05/16 12:00 11/04/16 11:59 10/27/16 17:37 Metoclopramide HCl (Reglan) 10 mg THREE TIMES A DAY GT 10/24/16 19:00 11/23/16 18:59 10/28/16 08:51 Ondansetron HCl (Zofran) 4 mg Q6H PRN IVP Nausea & Vomiting 10/05/16 11:30 11/04/16 11:29 10/24/16 09:17 Pantoprazole (Protonix) 40 mg DAILY GT 10/25/16 09:00 11/24/16 08:59 10/28/16 08:51 Polyethylene Glycol (Miralax) 17 gm DAILYPRN PRN GT Constipation 10/25/16 01:00 11/24/16 00:59 KIMBERLEE HINKLE M.D. Oct 28, 2016 12:14
[2016-10-28 16:00] VITALS: BP 103/71
--- NOTE | 2016-10-28 19:30 | Internal Med Progress Note ---
Subjective Date of Service: Oct 28, 2016 Physician Name Tadeo Verdin Attending Physician Steve Rader MD Current Medications Medications (Trade) Dose Ordered Sig/Shraddha Route PRN Reason Start Time Stop Time Status Last Admin Dose Admin Acetaminophen (Tylenol) 650 mg Q4H PRN ORAL fever>100.5 10/05/16 11:30 11/04/16 11:29 Albuterol/ Ipratropium (DuoNeb 0.5-3(2.5)mg/3ml) 3 ml Q4H PRN HHN Shortness of Breath 10/24/16 13:30 10/29/16 13:29 10/28/16 08:17 Dextrose (Dextrose 50%) STAT PRN IV Hypoglycemia 10/05/16 11:30 11/04/16 11:29 Insulin Aspart (NovoLOG) start when feeding started Q6HR SUBQ 10/05/16 12:00 11/04/16 11:59 10/28/16 17:37 Metoclopramide HCl (Reglan) 10 mg THREE TIMES A DAY GT 10/24/16 19:00 11/23/16 18:59 10/28/16 17:36 Ondansetron HCl (Zofran) 4 mg Q6H PRN IVP Nausea & Vomiting 10/05/16 11:30 11/04/16 11:29 10/24/16 09:17 Pantoprazole (Protonix) 40 mg DAILY GT 10/25/16 09:00 11/24/16 08:59 10/28/16 08:51 Polyethylene Glycol (Miralax) 17 gm DAILYPRN PRN GT Constipation 10/25/16 01:00 11/24/16 00:59 Allergies: Coded Allergies: No Known Allergies (Unverified , 06/17/16) ROS Limited/Unobtainable: Yes Subjective 66 YO M admitted with respiratory failure. JORDAN. Intubated and sedated. [facility]. Cover for Int Med-Dr Rader. Objective Last Vital Signs Date Time Temp Pulse Resp B/P Pulse Ox O2 Delivery O2 Flow Rate FiO2 10/28/16 17:18 100 26 30 10/28/16 16:00 96.8 103/71 100 Mechanical Ventilator 10/24/16 13:18 15.0 Laboratory Tests Test 10/28/16 03:20 White Blood Count 5.0 K/UL (4.8-10.8) Red Blood Count 3.60 M/UL (4.70-6.10) L Hemoglobin 10.0 G/DL (14.2-18.0) L Hematocrit 32.4 % (42.0-52.0) L Mean Corpuscular Volume 90 FL (80-99) Mean Corpuscular Hemoglobin 27.7 PG (27.0-31.0) Mean Corpuscular Hemoglobin Concent 30.7 G/DL (32.0-36.0) L Red Cell Distribution Width 15.3 % (11.6-14.8) H Platelet Count 355 K/UL (150-450) Mean Platelet Volume 6.4 FL (6.5-10.1) L Neutrophils (%) (Auto) 52.6 % (45.0-75.0) Lymphocytes (%) (Auto) 30.2 % (20.0-45.0) Monocytes (%) (Auto) 11.5 % (1.0-10.0) H Eosinophils (%) (Auto) 4.0 % (0.0-3.0) H Basophils (%) (Auto) 1.7 % (0.0-2.0) Sodium Level 140 mEQ/L (135-145) Potassium Level 3.6 mEQ/L (3.4-4.9) Chloride Level 98 mEQ/L (98-107) Carbon Dioxide Level 27 mEQ/L (20-30) Anion Gap 15 (5-15) Blood Urea Nitrogen 10 mg/dL (7-23) Creatinine 0.6 mg/dL (0.7-1.2) L Estimat Glomerular Filtration Rate > 60 mL/min (>60) Glucose Level 91 mg/dL (74-106) Calcium Level 9.0 mg/dL (8.6-10.2) Intake and Output 10/27/16 10/28/16 19:00 07:00 Intake Total 700 ml 220 ml Output Total 250 ml 200 ml Balance 450 ml 20 ml Free Water 300 ml 100 ml Tube Feeding 400 ml 120 ml Output Urine Total 250 ml 200 ml # Voids 1 # Bowel Movements 1 1 Objective General Appearance: moderate distress, thin EENT: PERRL/EOMI, normal ENT inspection Neck: non-tender, normal alignment, supple Cardiovascular: normal peripheral pulses, normal rate, regular rhythm, no gallop/murmur, no JVD Respiratory/Chest: Trach; Mech Vent; trach; respiratory distress, crackles/ rales, rhonchi - bilaterally, expiratory wheezing Abdomen: non tender, soft, no organomegaly, no mass, decreased bowel sounds Extremities: normal range of motion Skin: normal pigmentation, warm/dry Assessment/Plan Problem List: (1) Lung nodule (2) DVT (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 (3) Acute respiratory failure Assessment & Plan: S/P tracheostomy 10/03/16. Failed weaning trial. Cont vent per pulmonary (4) COPD exacerbation Assessment & Plan: Continue duoneb. Continue vent per pulmonary. (5) Pneumonia Assessment & Plan: Observe off antibiotics per ID (6) Leukocytosis Assessment & Plan: Continue off antibiotics per ID. (7) Dysphagia Assessment & Plan: See GI consult- S/P PEG 10/04/16. (8) Hypoglycemia Assessment & Plan: D50 prn; decrease insulin sliding scale. Assessment/Plan [facility]-see soc work note. TADEO VERDIN Oct 28, 2016 19:30
[2016-10-28 20:00] VITALS: BP 99/63
[2016-10-29] VITALS: BP 101/69
[2016-10-29 04:00] VITALS: BP 103/69
[2016-10-29 05:06] LABS: BASOPHILS % (AUTO) 1.9 % (0.0-2.0); EOSINOPHILS % (AUTO) 4.2 % (0.0-3.0); LYMPHOCYTES % (AUTO) 40.2 % (20.0-45.0); MEAN CORPUSCULAR HEMOGLOBIN 27.7 PG (27.0-31.0); MEAN CORPUSCULAR HGB CONC 30.8 G/DL (32.0-36.0); MEAN CORPUSCULAR VOLUME 90 FL (80-99); MEAN PLATELET VOLUME 6.1 FL (6.5-10.1); MONOCYTES % (AUTO) 6.9 % (1.0-10.0); NEUTROPHILS % (AUTO) 46.8 % (45.0-75.0); PLATELET COUNT 363 K/UL (150-450); RED BLOOD COUNT 3.89 M/UL (4.70-6.10); RED CELL DISTRIBUTION WIDTH 15.3 % (11.6-14.8)
[2016-10-29 05:31] LABS: ANION GAP 10 (5-15); CARBON DIOXIDE 29 mEQ/L (20-30); CHLORIDE 100 mEQ/L (98-107); CREATININE 0.6 mg/dL (0.7-1.2); GLOMERULAR FILTRATION RATE > 60 mL/min (>60); HEMOLYSIS 5; POTASSIUM 3.9 mEQ/L (3.4-4.9); SODIUM 139 mEQ/L (135-145)
[2016-10-29] MEDS: NovoLOG Insulin Flexpen SUBQ SCH ×4 (06:00→18:00)
[2016-10-29] MEDS: DuoNeb 0.5-3(2.5)mg/3ml neb HHN PRN (07:11)
[2016-10-29 08:00] VITALS: BP 105/68
[2016-10-29] MEDS: Pantoprazole 40mg pkt GT SCH (08:21)
--- NOTE | 2016-10-29 10:10 | Infectious Diseases Prog Note ---
Assessment/Plan Assessment/Plan ASSESSMENT: 66 y/o male with: // COPD exacerbation - delayed SCx 4+ PSA pt has increased secretions - CXR 09/27: Lungs are hyperinflated. No new infiltrates - negative: influenza // Leukocytosis - SP ( post op, 10/01 SP steroids ) // Diarrhea x 1 resolved C Diff Neg // Febrile low grade // HIV and Hep B/C : neg // - PEG 10/04 // Acute VDRF - intubated 09/20, 10/03 SP trach // Severe pulmonary HTN / grade I diastolic dysfunction / mod TR // Pulmonary nodules // Chronic RLE DVT // Tobacco abuse // [facility] resident // Negative MRSA, VRE screens // NKDA // Full Code PLAN: - Monitor pt off of AB Rx ( 10/17 SP Ceftazidime d# 14 ) ( 10/13 SP Jairon nebs d# 14 ) ( 10/11 SP Flagyl d# 10 ) ( 10/04 SP oral Vanco d# 3 ) ( 09/24 SP amikacin, invanz d# 5 / 5 ) ( 09/21 SP IV vancomycin d# 2 ) - taper steroids per pulm - monitor CBC, temperatures - monitor BMP - monitor CXR - vent support, wean as tolerated. Subjective Constitutional: Denies: anorexia, chills, drenching sweats, fatigue, fever, no symptoms, other Allergies: Coded Allergies: No Known Allergies (Unverified , 06/17/16) Objective Vital Signs Last 24 Hour Vital Signs Date Time Temp Pulse Resp B/P Pulse Ox O2 Delivery O2 Flow Rate FiO2 10/29/16 09:14 82 22 30 10/29/16 08:00 97.7 85 19 105/68 100 Mechanical Ventilator 30 10/29/16 07:40 74 10/29/16 07:40 30 10/29/16 07:13 79 21 100 Mechanical Ventilator 30 10/29/16 07:02 30 10/29/16 07:02 83 25 100 Mechanical Ventilator 15.0 30 10/29/16 07:02 80 25 30 10/29/16 04:54 62 16 30 10/29/16 04:00 96.6 69 20 103/69 100 Mechanical Ventilator 30 10/29/16 04:00 79 10/29/16 04:00 30 10/29/16 03:30 57 16 30 10/29/16 01:23 90 28 30 10/29/16 00:00 30 10/29/16 00:00 69 10/29/16 00:00 98.1 78 20 101/69 100 Mechanical Ventilator 30 10/28/16 23:30 91 26 30 10/28/16 20:48 86 26 30 10/28/16 20:00 84 10/28/16 20:00 98.6 72 18 99/63 100 Mechanical Ventilator 30 10/28/16 20:00 30 10/28/16 19:30 84 27 30 10/28/16 17:18 100 26 30 10/28/16 16:00 96.8 92 21 103/71 100 Mechanical Ventilator 30 10/28/16 16:00 30 10/28/16 16:00 90 10/28/16 14:54 98 25 30 10/28/16 12:40 70 16 30 10/28/16 12:00 97.0 72 16 105/67 100 Mechanical Ventilator 30 10/28/16 12:00 76 10/28/16 12:00 30 10/28/16 11:29 78 16 30 Height (Feet): 6 Height (Inches): 2.00 Weight (Pounds): 126 HEENT: anicteric Respiratory/Chest: normal breath sounds Cardiovascular: regularly irregular Abdomen: no organomegaly Laboratory Tests Test 10/29/16 03:50 White Blood Count 5.0 K/UL (4.8-10.8) Red Blood Count 3.89 M/UL (4.70-6.10) L Hemoglobin 10.8 G/DL (14.2-18.0) L Hematocrit 35.0 % (42.0-52.0) L Mean Corpuscular Volume 90 FL (80-99) Mean Corpuscular Hemoglobin 27.7 PG (27.0-31.0) Mean Corpuscular Hemoglobin Concent 30.8 G/DL (32.0-36.0) L Red Cell Distribution Width 15.3 % (11.6-14.8) H Platelet Count 363 K/UL (150-450) Mean Platelet Volume 6.1 FL (6.5-10.1) L Neutrophils (%) (Auto) 46.8 % (45.0-75.0) Lymphocytes (%) (Auto) 40.2 % (20.0-45.0) Monocytes (%) (Auto) 6.9 % (1.0-10.0) Eosinophils (%) (Auto) 4.2 % (0.0-3.0) H Basophils (%) (Auto) 1.9 % (0.0-2.0) Sodium Level 139 mEQ/L (135-145) Potassium Level 3.9 mEQ/L (3.4-4.9) Chloride Level 100 mEQ/L (98-107) Carbon Dioxide Level 29 mEQ/L (20-30) Anion Gap 10 (5-15) Blood Urea Nitrogen 10 mg/dL (7-23) Creatinine 0.6 mg/dL (0.7-1.2) L Estimat Glomerular Filtration Rate > 60 mL/min (>60) Glucose Level 83 mg/dL (74-106) Calcium Level 9.0 mg/dL (8.6-10.2) Current Medications Medications (Trade) Dose Ordered Sig/Shraddha Route PRN Reason Start Time Stop Time Status Last Admin Dose Admin Acetaminophen (Tylenol) 650 mg Q4H PRN ORAL fever>100.5 10/05/16 11:30 11/04/16 11:29 Albuterol/ Ipratropium (DuoNeb 0.5-3(2.5)mg/3ml) 3 ml Q4H PRN HHN Shortness of Breath 10/24/16 13:30 10/29/16 13:29 10/29/16 07:11 Dextrose (Dextrose 50%) STAT PRN IV Hypoglycemia 10/05/16 11:30 11/04/16 11:29 Insulin Aspart (NovoLOG) start when feeding started Q6HR SUBQ 10/05/16 12:00 11/04/16 11:59 10/28/16 17:37 Metoclopramide HCl (Reglan) 10 mg THREE TIMES A DAY GT 10/24/16 19:00 11/23/16 18:59 10/29/16 08:20 Ondansetron HCl (Zofran) 4 mg Q6H PRN IVP Nausea & Vomiting 10/05/16 11:30 11/04/16 11:29 10/24/16 09:17 Pantoprazole (Protonix) 40 mg DAILY GT 10/25/16 09:00 11/24/16 08:59 10/29/16 08:21 Polyethylene Glycol (Miralax) 17 gm DAILYPRN PRN GT Constipation 10/25/16 01:00 11/24/16 00:59 KIMBERLEE HINKLE M.D. Oct 29, 2016 10:10
--- NOTE | 2016-10-29 11:43 | Pulmonology Progress Note ---
Assessment/Plan Problems: (1) Respiratory failure (2) COPD exacerbation (3) Emphysema of lung Assessment/Plan doing better titrate fio2 titrate vent setting watch cbb, bmp dvt prophylaxis d50 for episode of hypoglycemia dc planning continue the same Subjective ROS Limited/Unobtainable: No Constitutional: Reports: no symptoms HEENT: Repors: no symptoms Respiratory: Reports: no symptoms Allergies: Coded Allergies: No Known Allergies (Unverified , 06/17/16) Objective Last 24 Hour Vital Signs Date Time Temp Pulse Resp B/P Pulse Ox O2 Delivery O2 Flow Rate FiO2 10/29/16 11:25 30 10/29/16 11:25 79 10/29/16 11:06 91 24 30 10/29/16 09:14 82 22 30 10/29/16 08:00 97.7 85 19 105/68 100 Mechanical Ventilator 30 10/29/16 07:40 74 10/29/16 07:40 30 10/29/16 07:13 79 21 100 Mechanical Ventilator 30 10/29/16 07:02 30 10/29/16 07:02 83 25 100 Mechanical Ventilator 15.0 30 10/29/16 07:02 80 25 30 10/29/16 04:54 62 16 30 10/29/16 04:00 96.6 69 20 103/69 100 Mechanical Ventilator 30 10/29/16 04:00 79 10/29/16 04:00 30 10/29/16 03:30 57 16 30 10/29/16 01:23 90 28 30 10/29/16 00:00 30 10/29/16 00:00 69 10/29/16 00:00 98.1 78 20 101/69 100 Mechanical Ventilator 30 10/28/16 23:30 91 26 30 10/28/16 20:48 86 26 30 10/28/16 20:00 84 10/28/16 20:00 98.6 72 18 99/63 100 Mechanical Ventilator 30 10/28/16 20:00 30 10/28/16 19:30 84 27 30 10/28/16 17:18 100 26 30 10/28/16 16:00 96.8 92 21 103/71 100 Mechanical Ventilator 30 10/28/16 16:00 30 10/28/16 16:00 90 10/28/16 14:54 98 25 30 10/28/16 12:40 70 16 30 10/28/16 12:00 97.0 72 16 105/67 100 Mechanical Ventilator 30 10/28/16 12:00 76 10/28/16 12:00 30 Intake and Output 10/28/16 10/29/16 19:00 07:00 Intake Total 580 ml 250 ml Output Total 200 ml 200 ml Balance 380 ml 50 ml Free Water 300 ml 250 ml Tube Feeding 280 ml Output Urine Total 200 ml 200 ml # Bowel Movements 1 Objective Status: awake HEENT: atraumatic, normocephalic Lungs: clear, decreased breath sounds Heart: HR/BP stable Abdomen: soft, non-tender Extremities: no C/C/E, edema Laboratory Tests 10/29/16 03:50: White Blood Count 5.0, Red Blood Count 3.89L, Hemoglobin 10.8L, Hematocrit 35.0L , Mean Corpuscular Volume 90, Mean Corpuscular Hemoglobin 27.7, Mean Corpuscular Hemoglobin Concent 30.8L, Red Cell Distribution Width 15.3H, Platelet Count 363, Mean Platelet Volume 6.1L, Neutrophils (%) (Auto) 46.8, Lymphocytes (%) (Auto) 40.2, Monocytes (%) (Auto) 6.9, Eosinophils (%) (Auto) 4.2H, Basophils (%) (Auto) 1.9, Sodium Level 139, Potassium Level 3.9, Chloride Level 100, Carbon Dioxide Level 29, Anion Gap 10, Blood Urea Nitrogen 10, Creatinine 0.6L, Estimat Glomerular Filtration Rate > 60, Glucose Level 83, Calcium Level 9.0 Current Medications Medications (Trade) Dose Ordered Sig/Shraddha Route PRN Reason Start Time Stop Time Status Last Admin Dose Admin Acetaminophen (Tylenol) 650 mg Q4H PRN ORAL fever>100.5 10/05/16 11:30 11/04/16 11:29 Albuterol/ Ipratropium (DuoNeb 0.5-3(2.5)mg/3ml) 3 ml Q4H PRN HHN Shortness of Breath 10/24/16 13:30 10/29/16 13:29 10/29/16 07:11 Dextrose (Dextrose 50%) STAT PRN IV Hypoglycemia 10/05/16 11:30 11/04/16 11:29 Insulin Aspart (NovoLOG) start when feeding started Q6HR SUBQ 10/05/16 12:00 11/04/16 11:59 10/28/16 17:37 Metoclopramide HCl (Reglan) 10 mg THREE TIMES A DAY GT 10/24/16 19:00 11/23/16 18:59 10/29/16 08:20 Ondansetron HCl (Zofran) 4 mg Q6H PRN IVP Nausea & Vomiting 10/05/16 11:30 11/04/16 11:29 10/24/16 09:17 Pantoprazole (Protonix) 40 mg DAILY GT 10/25/16 09:00 11/24/16 08:59 10/29/16 08:21 Polyethylene Glycol (Miralax) 17 gm DAILYPRN PRN GT Constipation 10/25/16 01:00 11/24/16 00:59 REN WRIGHT Oct 29, 2016 11:43
[2016-10-29 12:00] VITALS: BP 111/74
[2016-10-29 16:00] VITALS: BP 98/68
--- NOTE | 2016-10-29 20:04 | Internal Med Progress Note ---
Subjective Date of Service: Oct 29, 2016 Physician Name Tadeo Verdin Attending Physician Steve Rader MD Current Medications Medications (Trade) Dose Ordered Sig/Shraddha Route PRN Reason Start Time Stop Time Status Last Admin Dose Admin Acetaminophen (Tylenol) 650 mg Q4H PRN ORAL fever>100.5 10/05/16 11:30 11/04/16 11:29 Dextrose (Dextrose 50%) STAT PRN IV Hypoglycemia 10/05/16 11:30 11/04/16 11:29 Insulin Aspart (NovoLOG) start when feeding started Q6HR SUBQ 10/05/16 12:00 11/04/16 11:59 10/28/16 17:37 Metoclopramide HCl (Reglan) 10 mg THREE TIMES A DAY GT 10/24/16 19:00 11/23/16 18:59 10/29/16 18:40 Ondansetron HCl (Zofran) 4 mg Q6H PRN IVP Nausea & Vomiting 10/05/16 11:30 11/04/16 11:29 10/24/16 09:17 Pantoprazole (Protonix) 40 mg DAILY GT 10/25/16 09:00 11/24/16 08:59 10/29/16 08:21 Polyethylene Glycol (Miralax) 17 gm DAILYPRN PRN GT Constipation 10/25/16 01:00 11/24/16 00:59 Allergies: Coded Allergies: No Known Allergies (Unverified , 06/17/16) ROS Limited/Unobtainable: No Constitutional: Reports: no symptoms HEENT: Reports: no symptoms Cardiovascular: Reports: no symptoms Respiratory: Reports: no symptoms Gastrointestinal/Abdominal: Reports: no symptoms Genitourinary: Reports: burning Neurologic/Psychiatric: Reports: no symptoms Subjective 66 YO M admitted with respiratory failure. JORDAN. Intubated and sedated. Await placement at nursing home acute care facility. Cover for Int Med-Dr Rader. Objective Last Vital Signs Date Time Temp Pulse Resp B/P Pulse Ox O2 Delivery O2 Flow Rate FiO2 10/29/16 19:13 86 20 30 10/29/16 16:00 98.1 98/68 100 Mechanical Ventilator 10/29/16 07:02 15.0 Laboratory Tests Test 10/29/16 03:50 White Blood Count 5.0 K/UL (4.8-10.8) Red Blood Count 3.89 M/UL (4.70-6.10) L Hemoglobin 10.8 G/DL (14.2-18.0) L Hematocrit 35.0 % (42.0-52.0) L Mean Corpuscular Volume 90 FL (80-99) Mean Corpuscular Hemoglobin 27.7 PG (27.0-31.0) Mean Corpuscular Hemoglobin Concent 30.8 G/DL (32.0-36.0) L Red Cell Distribution Width 15.3 % (11.6-14.8) H Platelet Count 363 K/UL (150-450) Mean Platelet Volume 6.1 FL (6.5-10.1) L Neutrophils (%) (Auto) 46.8 % (45.0-75.0) Lymphocytes (%) (Auto) 40.2 % (20.0-45.0) Monocytes (%) (Auto) 6.9 % (1.0-10.0) Eosinophils (%) (Auto) 4.2 % (0.0-3.0) H Basophils (%) (Auto) 1.9 % (0.0-2.0) Sodium Level 139 mEQ/L (135-145) Potassium Level 3.9 mEQ/L (3.4-4.9) Chloride Level 100 mEQ/L (98-107) Carbon Dioxide Level 29 mEQ/L (20-30) Anion Gap 10 (5-15) Blood Urea Nitrogen 10 mg/dL (7-23) Creatinine 0.6 mg/dL (0.7-1.2) L Estimat Glomerular Filtration Rate > 60 mL/min (>60) Glucose Level 83 mg/dL (74-106) Calcium Level 9.0 mg/dL (8.6-10.2) Intake and Output 10/28/16 10/29/16 19:00 07:00 Intake Total 580 ml 250 ml Output Total 200 ml 200 ml Balance 380 ml 50 ml Free Water 300 ml 250 ml Tube Feeding 280 ml Output Urine Total 200 ml 200 ml # Bowel Movements 1 Objective General Appearance: moderate distress, thin EENT: PERRL/EOMI, normal ENT inspection Neck: non-tender, normal alignment, supple Cardiovascular: normal peripheral pulses, normal rate, regular rhythm, no gallop/murmur, no JVD Respiratory/Chest: Trach; Mech Vent; trach; respiratory distress, crackles/ rales, rhonchi - bilaterally, expiratory wheezing Abdomen: non tender, soft, no organomegaly, no mass, decreased bowel sounds Extremities: normal range of motion Skin: normal pigmentation, warm/dry Assessment/Plan Problem List: (1) Lung nodule (2) DVT (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 (3) Acute respiratory failure Assessment & Plan: S/P tracheostomy 10/03/16. Failed weaning trial. Cont vent per pulmonary (4) COPD exacerbation Assessment & Plan: Continue duoneb. Continue vent per pulmonary. (5) Pneumonia Assessment & Plan: Observe off antibiotics per ID (6) Leukocytosis Assessment & Plan: Continue off antibiotics per ID. (7) Dysphagia Assessment & Plan: See GI consult- S/P PEG 10/04/16. (8) Hypoglycemia Assessment & Plan: D50 prn; decrease insulin sliding scale. (9) Dysuria Assessment & Plan: D/C garcia cath. Assessment/Plan Discharge Planning: assisted acute caree facility when bed available-see soc work note. TADEO VERDIN Oct 29, 2016 20:04
[2016-10-29 20:54] VITALS: BP 105/74
[2016-10-30] VITALS: BP 110/80
[2016-10-30] MEDS: NovoLOG Insulin Flexpen SUBQ SCH ×4 (00:45→17:23)
[2016-10-30 04:30] VITALS: BP 113/77
[2016-10-30 05:27] LABS: EOSINOPHILS % (AUTO) 2.6 % (0.0-3.0); LYMPHOCYTES % (AUTO) 23.6 % (20.0-45.0); MEAN CORPUSCULAR HEMOGLOBIN 27.7 PG (27.0-31.0); MEAN CORPUSCULAR HGB CONC 30.9 G/DL (32.0-36.0); MEAN CORPUSCULAR VOLUME 89 FL (80-99); MEAN PLATELET VOLUME 6.1 FL (6.5-10.1); MONOCYTES % (AUTO) 8.4 % (1.0-10.0); NEUTROPHILS % (AUTO) 63.4 % (45.0-75.0); PLATELET COUNT 331 K/UL (150-450); RED BLOOD COUNT 4.01 M/UL (4.70-6.10); RED CELL DISTRIBUTION WIDTH 14.8 % (11.6-14.8); WHITE BLOOD COUNT 5.7 K/UL (4.8-10.8)
[2016-10-30 05:54] LABS: ANION GAP 10 (5-15); CALCIUM 8.9 mg/dL (8.6-10.2); CARBON DIOXIDE 30 mEQ/L (20-30); CHLORIDE 98 mEQ/L (98-107); CREATININE 0.6 mg/dL (0.7-1.2); GLOMERULAR FILTRATION RATE > 60 mL/min (>60); HEMOLYSIS 0; POTASSIUM 3.8 mEQ/L (3.4-4.9); SODIUM 138 mEQ/L (135-145)
[2016-10-30 08:00] VITALS: BP 99/67
[2016-10-30] MEDS: Pantoprazole 40mg pkt GT SCH (08:25)
[2016-10-30 12:00] VITALS: BP 104/77
[2016-10-30] MEDS: DuoNeb 0.5-3(2.5)mg/3ml neb HHN PRN ×3 (12:33→23:32)
--- NOTE | 2016-10-30 12:35 | Pulmonology Progress Note ---
Assessment/Plan Problems: (1) Respiratory failure (2) COPD exacerbation (3) Emphysema of lung Assessment/Plan doing better titrate fio2 titrate vent setting watch cbb, bmp dvt prophylaxis d50 for episode of hypoglycemia dc planning continue the same continue to wean everyday Subjective ROS Limited/Unobtainable: No Constitutional: Reports: no symptoms HEENT: Repors: no symptoms Respiratory: Reports: no symptoms Cardiovascular: Reports: no symptoms Allergies: Coded Allergies: No Known Allergies (Unverified , 06/17/16) Objective Last 24 Hour Vital Signs Date Time Temp Pulse Resp B/P Pulse Ox O2 Delivery O2 Flow Rate FiO2 10/30/16 12:25 89 21 100 Mechanical Ventilator 30 10/30/16 12:15 30 10/30/16 12:15 94 21 100 Mechanical Ventilator 30 10/30/16 12:00 10.0 30 10/30/16 12:00 67 10/30/16 10:40 70 16 30 10/30/16 08:52 83 17 30 10/30/16 08:00 10.0 30 10/30/16 08:00 98.0 75 16 99/67 100 Mechanical Ventilator 30 10/30/16 08:00 86 10/30/16 07:21 94 20 30 10/30/16 05:13 79 22 30 10/30/16 05:07 81 16 30 10/30/16 04:30 97.3 89 20 113/77 100 Mechanical Ventilator 89 10/30/16 04:00 10.0 30 10/30/16 03:50 80 10/30/16 01:16 104 22 30 10/30/16 00:30 65 10/30/16 00:00 98.1 84 24 110/80 100 Mechanical Ventilator 30 10/30/16 00:00 10.0 30 10/29/16 23:09 59 16 30 10/29/16 21:46 82 23 30 10/29/16 20:54 97.9 86 24 105/74 100 Mechanical Ventilator 30 10/29/16 20:00 10.0 30 10/29/16 19:13 86 20 30 10/29/16 19:04 77 10/29/16 17:06 93 22 30 10/29/16 16:02 30 10/29/16 16:02 81 10/29/16 16:00 98.1 80 19 98/68 100 Mechanical Ventilator 30 10/29/16 16:00 98.1 80 19 98/68 100 Mechanical Ventilator 30 10/29/16 14:33 91 26 30 10/29/16 12:56 88 23 30 Intake and Output 10/29/16 10/30/16 19:00 07:00 Intake Total 600 ml 330 ml Output Total 150 ml 300 ml Balance 450 ml 30 ml Free Water 200 ml Tube Feeding 400 ml 330 ml Output Urine Total 150 ml 300 ml # Bowel Movements 1 2 Objective Status: awake HEENT: atraumatic, normocephalic Lungs: clear, decreased breath sounds Heart: HR/BP stable Abdomen: soft, non-tender Extremities: no C/C/E, edema Laboratory Tests 10/30/16 04:10: White Blood Count 5.7, Red Blood Count 4.01L, Hemoglobin 11.1L, Hematocrit 35.8L , Mean Corpuscular Volume 89, Mean Corpuscular Hemoglobin 27.7, Mean Corpuscular Hemoglobin Concent 30.9L, Red Cell Distribution Width 14.8, Platelet Count 331, Mean Platelet Volume 6.1L, Neutrophils (%) (Auto) 63.4, Lymphocytes (%) (Auto) 23.6, Monocytes (%) (Auto) 8.4, Eosinophils (%) (Auto) 2.6, Basophils (%) (Auto) 2.0, Sodium Level 138, Potassium Level 3.8, Chloride Level 98, Carbon Dioxide Level 30, Anion Gap 10, Blood Urea Nitrogen 11, Creatinine 0.6L, Estimat Glomerular Filtration Rate > 60, Glucose Level 87, Calcium Level 8.9 Current Medications Medications (Trade) Dose Ordered Sig/Shraddha Route PRN Reason Start Time Stop Time Status Last Admin Dose Admin Acetaminophen (Tylenol) 650 mg Q4H PRN ORAL fever>100.5 10/05/16 11:30 11/04/16 11:29 Albuterol/ Ipratropium (DuoNeb 0.5-3(2.5)mg/3ml) 3 ml Q4H PRN HHN Shortness of Breath 10/30/16 07:45 11/04/16 07:44 10/30/16 12:33 Dextrose (Dextrose 50%) STAT PRN IV Hypoglycemia 10/05/16 11:30 11/04/16 11:29 Insulin Aspart (NovoLOG) start when feeding started Q6HR SUBQ 10/05/16 12:00 11/04/16 11:59 10/30/16 00:45 Lansoprazole (Prevacid) 30 mg DAILY GT 10/31/16 09:00 11/30/16 08:59 Metoclopramide HCl (Reglan) 10 mg THREE TIMES A DAY GT 10/24/16 19:00 11/23/16 18:59 10/30/16 12:22 Ondansetron HCl (Zofran) 4 mg Q6H PRN IVP Nausea & Vomiting 10/05/16 11:30 11/04/16 11:29 10/24/16 09:17 Polyethylene Glycol (Miralax) 17 gm DAILYPRN PRN GT Constipation 10/25/16 01:00 11/24/16 00:59 ERN WRIGHT Oct 30, 2016 12:35
--- NOTE | 2016-10-30 14:34 | Infectious Diseases Prog Note ---
Assessment/Plan Assessment/Plan ASSESSMENT: 66 y/o male with: // COPD exacerbation - delayed SCx 4+ PSA SP Rx - CXR 09/27: Lungs are hyperinflated. No new infiltrates - negative: influenza // Leukocytosis - SP ( post op, 10/01 SP steroids ) // Diarrhea x 1 resolved C Diff Neg // Febrile low grade // HIV and Hep B/C : neg // - PEG 10/04 // Acute VDRF - intubated 09/20, 10/03 SP trach // Severe pulmonary HTN / grade I diastolic dysfunction / mod TR // Pulmonary nodules // Chronic RLE DVT // Tobacco abuse // [facility] resident // Negative MRSA, VRE screens // NKDA // Full Code PLAN: - Monitor pt off of AB Rx ( 10/17 SP Ceftazidime d# 14 ) ( 10/13 SP Jairon nebs d# 14 ) ( 10/11 SP Flagyl d# 10 ) ( 10/04 SP oral Vanco d# 3 ) ( 09/24 SP amikacin, invanz d# 5 / 5 ) ( 09/21 SP IV vancomycin d# 2 ) - taper steroids per pulm - monitor CBC, temperatures - monitor BMP - monitor CXR - vent support, wean as tolerated. Subjective Constitutional: Denies: anorexia, chills, drenching sweats, fatigue, fever, no symptoms, other Allergies: Coded Allergies: No Known Allergies (Unverified , 06/17/16) Objective Vital Signs Last 24 Hour Vital Signs Date Time Temp Pulse Resp B/P Pulse Ox O2 Delivery O2 Flow Rate FiO2 10/30/16 12:33 92 21 30 10/30/16 12:25 89 21 100 Mechanical Ventilator 30 10/30/16 12:15 30 10/30/16 12:15 94 21 100 Mechanical Ventilator 30 10/30/16 12:00 97.7 79 16 104/77 99 Mechanical Ventilator 30 10/30/16 12:00 10.0 30 10/30/16 12:00 67 10/30/16 10:40 70 16 30 10/30/16 08:52 83 17 30 10/30/16 08:00 10.0 30 10/30/16 08:00 98.0 75 16 99/67 100 Mechanical Ventilator 30 10/30/16 08:00 86 10/30/16 07:21 94 20 30 10/30/16 05:13 79 22 30 10/30/16 05:07 81 16 30 10/30/16 04:30 97.3 89 20 113/77 100 Mechanical Ventilator 89 10/30/16 04:00 10.0 30 10/30/16 03:50 80 10/30/16 01:16 104 22 30 10/30/16 00:30 65 10/30/16 00:00 98.1 84 24 110/80 100 Mechanical Ventilator 30 10/30/16 00:00 10.0 30 10/29/16 23:09 59 16 30 10/29/16 21:46 82 23 30 10/29/16 20:54 97.9 86 24 105/74 100 Mechanical Ventilator 30 10/29/16 20:00 10.0 30 10/29/16 19:13 86 20 30 10/29/16 19:04 77 10/29/16 17:06 93 22 30 10/29/16 16:02 30 10/29/16 16:02 81 10/29/16 16:00 98.1 80 19 98/68 100 Mechanical Ventilator 30 10/29/16 16:00 98.1 80 19 98/68 100 Mechanical Ventilator 30 Height (Feet): 6 Height (Inches): 2.00 Weight (Pounds): 126 HEENT: atraumatic Respiratory/Chest: normal breath sounds Cardiovascular: regular rhythm Abdomen: non distended Laboratory Tests Test 10/30/16 04:10 White Blood Count 5.7 K/UL (4.8-10.8) Red Blood Count 4.01 M/UL (4.70-6.10) L Hemoglobin 11.1 G/DL (14.2-18.0) L Hematocrit 35.8 % (42.0-52.0) L Mean Corpuscular Volume 89 FL (80-99) Mean Corpuscular Hemoglobin 27.7 PG (27.0-31.0) Mean Corpuscular Hemoglobin Concent 30.9 G/DL (32.0-36.0) L Red Cell Distribution Width 14.8 % (11.6-14.8) Platelet Count 331 K/UL (150-450) Mean Platelet Volume 6.1 FL (6.5-10.1) L Neutrophils (%) (Auto) 63.4 % (45.0-75.0) Lymphocytes (%) (Auto) 23.6 % (20.0-45.0) Monocytes (%) (Auto) 8.4 % (1.0-10.0) Eosinophils (%) (Auto) 2.6 % (0.0-3.0) Basophils (%) (Auto) 2.0 % (0.0-2.0) Sodium Level 138 mEQ/L (135-145) Potassium Level 3.8 mEQ/L (3.4-4.9) Chloride Level 98 mEQ/L (98-107) Carbon Dioxide Level 30 mEQ/L (20-30) Anion Gap 10 (5-15) Blood Urea Nitrogen 11 mg/dL (7-23) Creatinine 0.6 mg/dL (0.7-1.2) L Estimat Glomerular Filtration Rate > 60 mL/min (>60) Glucose Level 87 mg/dL (74-106) Calcium Level 8.9 mg/dL (8.6-10.2) Current Medications Medications (Trade) Dose Ordered Sig/Shraddha Route PRN Reason Start Time Stop Time Status Last Admin Dose Admin Acetaminophen (Tylenol) 650 mg Q4H PRN ORAL fever>100.5 10/05/16 11:30 11/04/16 11:29 Albuterol/ Ipratropium (DuoNeb 0.5-3(2.5)mg/3ml) 3 ml Q4H PRN HHN Shortness of Breath 10/30/16 07:45 11/04/16 07:44 10/30/16 12:33 Dextrose (Dextrose 50%) STAT PRN IV Hypoglycemia 10/05/16 11:30 11/04/16 11:29 Insulin Aspart (NovoLOG) start when feeding started Q6HR SUBQ 10/05/16 12:00 11/04/16 11:59 10/30/16 00:45 Lansoprazole (Prevacid) 30 mg DAILY GT 10/31/16 09:00 11/30/16 08:59 Metoclopramide HCl (Reglan) 10 mg THREE TIMES A DAY GT 10/24/16 19:00 11/23/16 18:59 10/30/16 12:22 Ondansetron HCl (Zofran) 4 mg Q6H PRN IVP Nausea & Vomiting 10/05/16 11:30 11/04/16 11:29 10/24/16 09:17 Polyethylene Glycol (Miralax) 17 gm DAILYPRN PRN GT Constipation 10/25/16 01:00 11/24/16 00:59 KIMBERLEE HINKLE M.D. Oct 30, 2016 14:34
[2016-10-30 16:00] VITALS: BP 97/75
[2016-10-30] MEDS ORDERED: Sterile Water Irrig 1000ml IRRIG ONE ×2 (16:22→16:26)
--- NOTE | 2016-10-30 19:49 | Internal Med Progress Note ---
Subjective Date of Service: Oct 30, 2016 Physician Name Tadeo Verdin Attending Physician Steve Rader MD Current Medications Medications (Trade) Dose Ordered Sig/Shraddha Route PRN Reason Start Time Stop Time Status Last Admin Dose Admin Acetaminophen (Tylenol) 650 mg Q4H PRN ORAL fever>100.5 10/05/16 11:30 11/04/16 11:29 Albuterol/ Ipratropium (DuoNeb 0.5-3(2.5)mg/3ml) 3 ml Q4H PRN HHN Shortness of Breath 10/30/16 07:45 11/04/16 07:44 10/30/16 18:29 Dextrose (Dextrose 50%) STAT PRN IV Hypoglycemia 10/05/16 11:30 11/04/16 11:29 Insulin Aspart (NovoLOG) start when feeding started Q6HR SUBQ 10/05/16 12:00 11/04/16 11:59 10/30/16 00:45 Lansoprazole (Prevacid) 30 mg DAILY GT 10/31/16 09:00 11/30/16 08:59 Metoclopramide HCl (Reglan) 10 mg THREE TIMES A DAY GT 10/24/16 19:00 11/23/16 18:59 10/30/16 17:24 Ondansetron HCl (Zofran) 4 mg Q6H PRN IVP Nausea & Vomiting 10/05/16 11:30 11/04/16 11:29 10/24/16 09:17 Polyethylene Glycol (Miralax) 17 gm DAILYPRN PRN GT Constipation 10/25/16 01:00 11/24/16 00:59 Allergies: Coded Allergies: No Known Allergies (Unverified , 06/17/16) ROS Limited/Unobtainable: Yes Subjective 66 YO M admitted with respiratory failure. JORDAN. Intubated and sedated. [facility] Cover for Int Med-Dr Rader. Objective Last Vital Signs Date Time Temp Pulse Resp B/P Pulse Ox O2 Delivery O2 Flow Rate FiO2 10/30/16 18:48 85 16 30 10/30/16 18:29 99 Mechanical Ventilator 10/30/16 16:00 97.6 97/75 10/30/16 16:00 10.0 Laboratory Tests Test 10/30/16 04:10 White Blood Count 5.7 K/UL (4.8-10.8) Red Blood Count 4.01 M/UL (4.70-6.10) L Hemoglobin 11.1 G/DL (14.2-18.0) L Hematocrit 35.8 % (42.0-52.0) L Mean Corpuscular Volume 89 FL (80-99) Mean Corpuscular Hemoglobin 27.7 PG (27.0-31.0) Mean Corpuscular Hemoglobin Concent 30.9 G/DL (32.0-36.0) L Red Cell Distribution Width 14.8 % (11.6-14.8) Platelet Count 331 K/UL (150-450) Mean Platelet Volume 6.1 FL (6.5-10.1) L Neutrophils (%) (Auto) 63.4 % (45.0-75.0) Lymphocytes (%) (Auto) 23.6 % (20.0-45.0) Monocytes (%) (Auto) 8.4 % (1.0-10.0) Eosinophils (%) (Auto) 2.6 % (0.0-3.0) Basophils (%) (Auto) 2.0 % (0.0-2.0) Sodium Level 138 mEQ/L (135-145) Potassium Level 3.8 mEQ/L (3.4-4.9) Chloride Level 98 mEQ/L (98-107) Carbon Dioxide Level 30 mEQ/L (20-30) Anion Gap 10 (5-15) Blood Urea Nitrogen 11 mg/dL (7-23) Creatinine 0.6 mg/dL (0.7-1.2) L Estimat Glomerular Filtration Rate > 60 mL/min (>60) Glucose Level 87 mg/dL (74-106) Calcium Level 8.9 mg/dL (8.6-10.2) Intake and Output 10/29/16 10/30/16 19:00 07:00 Intake Total 600 ml 330 ml Output Total 150 ml 300 ml Balance 450 ml 30 ml Free Water 200 ml Tube Feeding 400 ml 330 ml Output Urine Total 150 ml 300 ml # Bowel Movements 1 2 Objective General Appearance: moderate distress, thin EENT: PERRL/EOMI, normal ENT inspection Neck: non-tender, normal alignment, supple Cardiovascular: normal peripheral pulses, normal rate, regular rhythm, no gallop/murmur, no JVD Respiratory/Chest: Trach; Mech Vent; trach; respiratory distress, crackles/ rales, rhonchi - bilaterally, expiratory wheezing Abdomen: non tender, soft, no organomegaly, no mass, decreased bowel sounds Extremities: normal range of motion Skin: normal pigmentation, warm/dry Assessment/Plan Problem List: (1) Lung nodule (2) DVT (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 (3) Acute respiratory failure Assessment & Plan: S/P tracheostomy 10/03/16. Failed weaning trial. Cont vent per pulmonary (4) COPD exacerbation Assessment & Plan: Continue duoneb. Continue vent per pulmonary. (5) Pneumonia Assessment & Plan: Observe off antibiotics per ID (6) Leukocytosis Assessment & Plan: Continue off antibiotics per ID. (7) Dysphagia Assessment & Plan: See GI consult- S/P PEG 10/04/16. (8) Hypoglycemia Assessment & Plan: D50 prn; decrease insulin sliding scale. (9) Dysuria Assessment & Plan: D/C garcia cath. Assessment/Plan Discharge Planning: [facility] facility when bed available-see soc work note. TADEO EVRDIN Oct 30, 2016 19:49
[2016-10-30 20:00] VITALS: BP 99/64
[2016-10-31] VITALS: BP 102/70
[2016-10-31 04:00] VITALS: BP 107/65
[2016-10-31] MEDS: DuoNeb 0.5-3(2.5)mg/3ml neb HHN PRN ×4 (04:37→20:47)
[2016-10-31 05:42] LABS: BASOPHILS % (AUTO) 2.1 % (0.0-2.0); EOSINOPHILS % (AUTO) 4.2 % (0.0-3.0); MEAN CORPUSCULAR HEMOGLOBIN 27.7 PG (27.0-31.0); MEAN CORPUSCULAR HGB CONC 30.9 G/DL (32.0-36.0); MEAN CORPUSCULAR VOLUME 90 FL (80-99); MEAN PLATELET VOLUME 6.4 FL (6.5-10.1); MONOCYTES % (AUTO) 11.7 % (1.0-10.0); PLATELET COUNT 346 K/UL (150-450); RED BLOOD COUNT 3.98 M/UL (4.70-6.10); RED CELL DISTRIBUTION WIDTH 14.8 % (11.6-14.8); WHITE BLOOD COUNT 5.2 K/UL (4.8-10.8)
[2016-10-31] MEDS: NovoLOG Insulin Flexpen SUBQ SCH ×4 (06:00→17:33)
[2016-10-31 06:06] LABS: ANION GAP 12 (5-15); CALCIUM 9.1 mg/dL (8.6-10.2); CARBON DIOXIDE 29 mEQ/L (20-30); CHLORIDE 100 mEQ/L (98-107); CREATININE 0.6 mg/dL (0.7-1.2); GLOMERULAR FILTRATION RATE > 60 mL/min (>60); HEMOLYSIS 3; POTASSIUM 3.9 mEQ/L (3.4-4.9); SODIUM 141 mEQ/L (135-145)
[2016-10-31 08:00] VITALS: BP 109/74
--- NOTE | 2016-10-31 10:49 | Pulmonology Progress Note ---
Assessment/Plan Problems: (1) Respiratory failure (2) COPD exacerbation (3) Emphysema of lung Assessment/Plan doing better titrate fio2 titrate vent setting watch cbb, bmp dvt prophylaxis d50 for episode of hypoglycemia dc planning continue the same continue to wean everyday Subjective ROS Limited/Unobtainable: No Constitutional: Reports: no symptoms HEENT: Repors: no symptoms Allergies: Coded Allergies: No Known Allergies (Unverified , 06/17/16) Objective Last 24 Hour Vital Signs Date Time Temp Pulse Resp B/P Pulse Ox O2 Delivery O2 Flow Rate FiO2 10/31/16 08:52 65 20 30 10/31/16 08:00 67 10/31/16 08:00 97.4 65 16 109/74 100 Mechanical Ventilator 30 10/31/16 08:00 10.0 30 10/31/16 07:40 72 17 30 10/31/16 07:40 73 16 100 Mechanical Ventilator 30 10/31/16 07:40 30 10/31/16 05:10 93 22 30 10/31/16 05:00 85 23 100 Mechanical Ventilator 30 10/31/16 04:38 30 10/31/16 04:37 72 23 99 Mechanical Ventilator 30 10/31/16 04:00 98.2 62 16 107/65 100 Mechanical Ventilator 30 10/31/16 04:00 79 10/31/16 04:00 30 10/31/16 03:01 98 21 30 10/31/16 01:30 83 22 30 10/31/16 00:19 77 10/31/16 00:00 30 10/31/16 00:00 98.9 84 24 102/70 100 Mechanical Ventilator 30 10/30/16 23:41 30 10/30/16 23:41 79 18 99 Mechanical Ventilator 30 10/30/16 23:20 78 17 30 10/30/16 23:15 83 22 100 Mechanical Ventilator 30 10/30/16 21:36 88 16 30 10/30/16 20:00 70 10/30/16 20:00 10.0 30 10/30/16 20:00 97.7 76 16 99/64 100 Mechanical Ventilator 30 10/30/16 18:48 85 16 30 10/30/16 18:29 85 18 99 Mechanical Ventilator 30 10/30/16 18:29 30 10/30/16 17:05 86 17 30 10/30/16 16:00 82 10/30/16 16:00 97.6 83 17 97/75 100 Mechanical Ventilator 30 10/30/16 16:00 10.0 30 10/30/16 14:46 65 16 30 10/30/16 12:33 92 21 30 10/30/16 12:25 89 21 100 Mechanical Ventilator 30 10/30/16 12:15 30 10/30/16 12:15 94 21 100 Mechanical Ventilator 30 10/30/16 12:00 97.7 79 16 104/77 99 Mechanical Ventilator 30 10/30/16 12:00 10.0 30 10/30/16 12:00 67 Intake and Output 10/30/16 10/31/16 19:00 07:00 Intake Total 210 ml 180 ml Output Total 125 ml Balance 85 ml 180 ml Tube Feeding 210 ml 180 ml Output Urine Total 125 ml # Bowel Movements 1 1 Objective Status: awake HEENT: atraumatic, normocephalic Lungs: clear, decreased breath sounds Heart: HR/BP stable Abdomen: soft, non-tender Extremities: no C/C/E, edema Laboratory Tests 10/31/16 03:30: White Blood Count 5.2, Red Blood Count 3.98L, Hemoglobin 11.0L, Hematocrit 35.7L , Mean Corpuscular Volume 90, Mean Corpuscular Hemoglobin 27.7, Mean Corpuscular Hemoglobin Concent 30.9L, Red Cell Distribution Width 14.8, Platelet Count 346, Mean Platelet Volume 6.4L, Neutrophils (%) (Auto) 56.0, Lymphocytes (%) (Auto) 26.0, Monocytes (%) (Auto) 11.7H, Eosinophils (%) (Auto) 4.2H, Basophils (%) (Auto) 2.1H, Sodium Level 141, Potassium Level 3.9, Chloride Level 100, Carbon Dioxide Level 29, Anion Gap 12, Blood Urea Nitrogen 11, Creatinine 0.6L, Estimat Glomerular Filtration Rate > 60, Glucose Level 107H , Calcium Level 9.1 Current Medications Medications (Trade) Dose Ordered Sig/Shraddha Route PRN Reason Start Time Stop Time Status Last Admin Dose Admin Acetaminophen (Tylenol) 650 mg Q4H PRN ORAL fever>100.5 10/05/16 11:30 11/04/16 11:29 Albuterol/ Ipratropium (DuoNeb 0.5-3(2.5)mg/3ml) 3 ml Q4H PRN HHN Shortness of Breath 10/30/16 07:45 11/04/16 07:44 10/31/16 07:40 Dextrose (Dextrose 50%) STAT PRN IV Hypoglycemia 10/05/16 11:30 11/04/16 11:29 Insulin Aspart (NovoLOG) start when feeding started Q6HR SUBQ 10/05/16 12:00 11/04/16 11:59 10/30/16 00:45 Lansoprazole (Prevacid) 30 mg DAILY GT 10/31/16 09:00 11/30/16 08:59 10/31/16 08:22 Metoclopramide HCl (Reglan) 10 mg THREE TIMES A DAY GT 10/24/16 19:00 11/23/16 18:59 10/31/16 08:22 Ondansetron HCl (Zofran) 4 mg Q6H PRN IVP Nausea & Vomiting 10/05/16 11:30 11/04/16 11:29 10/24/16 09:17 Polyethylene Glycol (Miralax) 17 gm DAILYPRN PRN GT Constipation 10/25/16 01:00 11/24/16 00:59 REN WRIGHT Oct 31, 2016 10:49
--- NOTE | 2016-10-31 11:15 | Infectious Diseases Prog Note ---
Assessment/Plan Assessment/Plan ASSESSMENT: 66 y/o male with: // COPD exacerbation - delayed SCx 4+ PSA SP Rx - CXR 09/27: Lungs are hyperinflated. No new infiltrates - negative: influenza // Leukocytosis - SP ( post op, 10/01 SP steroids ) // Diarrhea x 1 resolved C Diff Neg // Febrile low grade // HIV and Hep B/C : neg // - PEG 10/04 // Acute VDRF - intubated 09/20, 10/03 SP trach // Severe pulmonary HTN / grade I diastolic dysfunction / mod TR // Pulmonary nodules // Chronic RLE DVT // Tobacco abuse // [facility] resident // Negative MRSA, VRE screens // NKDA // Full Code PLAN: - Monitor pt off of AB Rx ( 10/17 SP Ceftazidime d# 14 ) ( 10/13 SP Jairon nebs d# 14 ) ( 10/11 SP Flagyl d# 10 ) ( 10/04 SP oral Vanco d# 3 ) ( 09/24 SP amikacin, invanz d# 5 / 5 ) ( 09/21 SP IV vancomycin d# 2 ) - taper steroids per pulm - monitor CBC, temperatures - monitor BMP - monitor CXR - vent support, wean as tolerated. Subjective Constitutional: Denies: anorexia, chills, drenching sweats, fatigue, fever, no symptoms, other Allergies: Coded Allergies: No Known Allergies (Unverified , 06/17/16) Objective Vital Signs Last 24 Hour Vital Signs Date Time Temp Pulse Resp B/P Pulse Ox O2 Delivery O2 Flow Rate FiO2 10/31/16 08:52 65 20 30 10/31/16 08:00 67 10/31/16 08:00 97.4 65 16 109/74 100 Mechanical Ventilator 30 10/31/16 08:00 10.0 30 10/31/16 07:40 72 17 30 10/31/16 07:40 73 16 100 Mechanical Ventilator 30 10/31/16 07:40 30 10/31/16 05:10 93 22 30 10/31/16 05:00 85 23 100 Mechanical Ventilator 30 10/31/16 04:38 30 10/31/16 04:37 72 23 99 Mechanical Ventilator 30 10/31/16 04:00 98.2 62 16 107/65 100 Mechanical Ventilator 30 10/31/16 04:00 79 10/31/16 04:00 30 10/31/16 03:01 98 21 30 10/31/16 01:30 83 22 30 10/31/16 00:19 77 10/31/16 00:00 30 10/31/16 00:00 98.9 84 24 102/70 100 Mechanical Ventilator 30 10/30/16 23:41 30 10/30/16 23:41 79 18 99 Mechanical Ventilator 30 10/30/16 23:20 78 17 30 10/30/16 23:15 83 22 100 Mechanical Ventilator 30 10/30/16 21:36 88 16 30 10/30/16 20:00 70 10/30/16 20:00 10.0 30 10/30/16 20:00 97.7 76 16 99/64 100 Mechanical Ventilator 30 10/30/16 18:48 85 16 30 10/30/16 18:29 85 18 99 Mechanical Ventilator 30 10/30/16 18:29 30 10/30/16 17:05 86 17 30 10/30/16 16:00 82 10/30/16 16:00 97.6 83 17 97/75 100 Mechanical Ventilator 30 10/30/16 16:00 10.0 30 10/30/16 14:46 65 16 30 10/30/16 12:33 92 21 30 10/30/16 12:25 89 21 100 Mechanical Ventilator 30 10/30/16 12:15 30 10/30/16 12:15 94 21 100 Mechanical Ventilator 30 10/30/16 12:00 97.7 79 16 104/77 99 Mechanical Ventilator 30 10/30/16 12:00 10.0 30 10/30/16 12:00 67 Height (Feet): 6 Height (Inches): 2.00 Weight (Pounds): 126 HEENT: anicteric Respiratory/Chest: normal breath sounds Cardiovascular: regularly irregular Abdomen: non distended Laboratory Tests Test 10/31/16 03:30 White Blood Count 5.2 K/UL (4.8-10.8) Red Blood Count 3.98 M/UL (4.70-6.10) L Hemoglobin 11.0 G/DL (14.2-18.0) L Hematocrit 35.7 % (42.0-52.0) L Mean Corpuscular Volume 90 FL (80-99) Mean Corpuscular Hemoglobin 27.7 PG (27.0-31.0) Mean Corpuscular Hemoglobin Concent 30.9 G/DL (32.0-36.0) L Red Cell Distribution Width 14.8 % (11.6-14.8) Platelet Count 346 K/UL (150-450) Mean Platelet Volume 6.4 FL (6.5-10.1) L Neutrophils (%) (Auto) 56.0 % (45.0-75.0) Lymphocytes (%) (Auto) 26.0 % (20.0-45.0) Monocytes (%) (Auto) 11.7 % (1.0-10.0) H Eosinophils (%) (Auto) 4.2 % (0.0-3.0) H Basophils (%) (Auto) 2.1 % (0.0-2.0) H Sodium Level 141 mEQ/L (135-145) Potassium Level 3.9 mEQ/L (3.4-4.9) Chloride Level 100 mEQ/L (98-107) Carbon Dioxide Level 29 mEQ/L (20-30) Anion Gap 12 (5-15) Blood Urea Nitrogen 11 mg/dL (7-23) Creatinine 0.6 mg/dL (0.7-1.2) L Estimat Glomerular Filtration Rate > 60 mL/min (>60) Glucose Level 107 mg/dL (74-106) H Calcium Level 9.1 mg/dL (8.6-10.2) Current Medications Medications (Trade) Dose Ordered Sig/Shraddha Route PRN Reason Start Time Stop Time Status Last Admin Dose Admin Acetaminophen (Tylenol) 650 mg Q4H PRN ORAL fever>100.5 10/05/16 11:30 11/04/16 11:29 Albuterol/ Ipratropium (DuoNeb 0.5-3(2.5)mg/3ml) 3 ml Q4H PRN HHN Shortness of Breath 10/30/16 07:45 11/04/16 07:44 10/31/16 07:40 Dextrose (Dextrose 50%) STAT PRN IV Hypoglycemia 10/05/16 11:30 11/04/16 11:29 Insulin Aspart (NovoLOG) start when feeding started Q6HR SUBQ 10/05/16 12:00 11/04/16 11:59 10/30/16 00:45 Lansoprazole (Prevacid) 30 mg DAILY GT 10/31/16 09:00 11/30/16 08:59 10/31/16 08:22 Metoclopramide HCl (Reglan) 10 mg THREE TIMES A DAY GT 10/24/16 19:00 11/23/16 18:59 10/31/16 08:22 Ondansetron HCl (Zofran) 4 mg Q6H PRN IVP Nausea & Vomiting 10/05/16 11:30 11/04/16 11:29 10/24/16 09:17 Polyethylene Glycol (Miralax) 17 gm DAILYPRN PRN GT Constipation 10/25/16 01:00 11/24/16 00:59 KIMBERLEE HINKLE M.D. Oct 31, 2016 11:15
[2016-10-31 12:00] VITALS: BP 97/69
--- NOTE | 2016-10-31 14:53 | Internal Med Progress Note ---
Subjective Date of Service: Oct 31, 2016 Physician Name Tadeo Verdin Attending Physician Steve Rader MD Current Medications Medications (Trade) Dose Ordered Sig/Shraddha Route PRN Reason Start Time Stop Time Status Last Admin Dose Admin Acetaminophen (Tylenol) 650 mg Q4H PRN ORAL fever>100.5 10/05/16 11:30 11/04/16 11:29 Albuterol/ Ipratropium (DuoNeb 0.5-3(2.5)mg/3ml) 3 ml Q4H PRN HHN Shortness of Breath 10/30/16 07:45 11/04/16 07:44 10/31/16 14:37 Dextrose (Dextrose 50%) STAT PRN IV Hypoglycemia 10/05/16 11:30 11/04/16 11:29 Insulin Aspart (NovoLOG) start when feeding started Q6HR SUBQ 10/05/16 12:00 11/04/16 11:59 10/30/16 00:45 Lansoprazole (Prevacid) 30 mg DAILY GT 10/31/16 09:00 11/30/16 08:59 10/31/16 08:22 Metoclopramide HCl (Reglan) 10 mg THREE TIMES A DAY GT 10/24/16 19:00 11/23/16 18:59 10/31/16 12:52 Ondansetron HCl (Zofran) 4 mg Q6H PRN IVP Nausea & Vomiting 10/05/16 11:30 11/04/16 11:29 10/24/16 09:17 Polyethylene Glycol (Miralax) 17 gm DAILYPRN PRN GT Constipation 10/25/16 01:00 11/24/16 00:59 Allergies: Coded Allergies: No Known Allergies (Unverified , 06/17/16) ROS Limited/Unobtainable: Yes Subjective 66 YO M admitted with respiratory failure. JORDAN. Intubated and sedated. Await placement at longterm acute care facility. Cover for Int Med-Dr Rader. Objective Last Vital Signs Date Time Temp Pulse Resp B/P Pulse Ox O2 Delivery O2 Flow Rate FiO2 10/31/16 14:37 79 16 30 10/31/16 14:37 100 Mechanical Ventilator 10.0 10/31/16 12:00 97.5 97/69 Laboratory Tests Test 10/31/16 03:30 White Blood Count 5.2 K/UL (4.8-10.8) Red Blood Count 3.98 M/UL (4.70-6.10) L Hemoglobin 11.0 G/DL (14.2-18.0) L Hematocrit 35.7 % (42.0-52.0) L Mean Corpuscular Volume 90 FL (80-99) Mean Corpuscular Hemoglobin 27.7 PG (27.0-31.0) Mean Corpuscular Hemoglobin Concent 30.9 G/DL (32.0-36.0) L Red Cell Distribution Width 14.8 % (11.6-14.8) Platelet Count 346 K/UL (150-450) Mean Platelet Volume 6.4 FL (6.5-10.1) L Neutrophils (%) (Auto) 56.0 % (45.0-75.0) Lymphocytes (%) (Auto) 26.0 % (20.0-45.0) Monocytes (%) (Auto) 11.7 % (1.0-10.0) H Eosinophils (%) (Auto) 4.2 % (0.0-3.0) H Basophils (%) (Auto) 2.1 % (0.0-2.0) H Sodium Level 141 mEQ/L (135-145) Potassium Level 3.9 mEQ/L (3.4-4.9) Chloride Level 100 mEQ/L (98-107) Carbon Dioxide Level 29 mEQ/L (20-30) Anion Gap 12 (5-15) Blood Urea Nitrogen 11 mg/dL (7-23) Creatinine 0.6 mg/dL (0.7-1.2) L Estimat Glomerular Filtration Rate > 60 mL/min (>60) Glucose Level 107 mg/dL (74-106) H Calcium Level 9.1 mg/dL (8.6-10.2) Intake and Output 10/30/16 10/31/16 19:00 07:00 Intake Total 210 ml 180 ml Output Total 125 ml Balance 85 ml 180 ml Tube Feeding 210 ml 180 ml Output Urine Total 125 ml # Bowel Movements 1 1 Objective General Appearance: moderate distress, thin EENT: PERRL/EOMI, normal ENT inspection Neck: non-tender, normal alignment, supple Cardiovascular: normal peripheral pulses, normal rate, regular rhythm, no gallop/murmur, no JVD Respiratory/Chest: Trach; Mech Vent; trach; respiratory distress, crackles/ rales, rhonchi - bilaterally, expiratory wheezing Abdomen: non tender, soft, no organomegaly, no mass, decreased bowel sounds Extremities: normal range of motion Skin: normal pigmentation, warm/dry Assessment/Plan Problem List: (1) Lung nodule (2) DVT (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 (3) Acute respiratory failure Assessment & Plan: S/P tracheostomy 10/03/16. Failed weaning trial. Cont vent per pulmonary (4) COPD exacerbation Assessment & Plan: Continue duoneb. Continue vent per pulmonary. (5) Pneumonia Assessment & Plan: Observe off antibiotics per ID (6) Leukocytosis Assessment & Plan: Continue off antibiotics per ID. (7) Dysphagia Assessment & Plan: See GI consult- S/P PEG 10/04/16. (8) Hypoglycemia Assessment & Plan: D50 prn; decrease insulin sliding scale. (9) Dysuria Assessment & Plan: D/C garcia cath. Assessment/Plan Discharge Planning: longterm acute caree facility when bed available-see soc work note. TADEO VERDIN Oct 31, 2016 14:52
[2016-10-31 16:00] VITALS: BP 91/72
[2016-10-31 20:00] VITALS: BP 101/53
[2016-11-01] VITALS: BP 94/66
[2016-11-01] MEDS: DuoNeb 0.5-3(2.5)mg/3ml neb HHN PRN ×6 (01:21→22:43)
[2016-11-01 04:00] VITALS: BP_SYST 93; BP_SYST 97; BP_DIAS 60; BP_DIAS 61
[2016-11-01] MEDS: NovoLOG Insulin Flexpen SUBQ SCH ×4 (06:00→16:57)
[2016-11-01 06:52] LABS: BASOPHILS % (AUTO) 1.8 % (0.0-2.0); LYMPHOCYTES % (AUTO) 27.3 % (20.0-45.0); MEAN CORPUSCULAR HEMOGLOBIN 27.3 PG (27.0-31.0); MEAN CORPUSCULAR VOLUME 88 FL (80-99); MEAN PLATELET VOLUME 6.4 FL (6.5-10.1); MONOCYTES % (AUTO) 8.7 % (1.0-10.0); NEUTROPHILS % (AUTO) 58.2 % (45.0-75.0); PLATELET COUNT 337 K/UL (150-450); RED BLOOD COUNT 3.86 M/UL (4.70-6.10); RED CELL DISTRIBUTION WIDTH 14.9 % (11.6-14.8); WHITE BLOOD COUNT 5.4 K/UL (4.8-10.8)
[2016-11-01 07:00] LABS: ANION GAP 15 (5-15); CALCIUM 9.1 mg/dL (8.6-10.2); CARBON DIOXIDE 26 mEQ/L (20-30); CHLORIDE 95 mEQ/L (98-107); CREATININE 0.7 mg/dL (0.7-1.2); GLOMERULAR FILTRATION RATE > 60 mL/min (>60); HEMOLYSIS 50; POTASSIUM 4.2 mEQ/L (3.4-4.9); SODIUM 136 mEQ/L (135-145)
[2016-11-01 08:00] VITALS: BP 98/65
[2016-11-01 12:00] VITALS: BP 96/60
--- NOTE | 2016-11-01 12:30 | Pulmonology Progress Note ---
Assessment/Plan Problems: (1) Respiratory failure (2) COPD exacerbation (3) Emphysema of lung Assessment/Plan doing better titrate fio2 titrate vent setting watch cbb, bmp dvt prophylaxis d50 for episode of hypoglycemia dc planning continue the same continue to wean everyday Subjective Allergies: Coded Allergies: No Known Allergies (Unverified , 06/17/16) Objective Last 24 Hour Vital Signs Date Time Temp Pulse Resp B/P Pulse Ox O2 Delivery O2 Flow Rate FiO2 11/01/16 12:00 97.5 70 18 96/60 99 Mechanical Ventilator 30 11/01/16 09:21 30 11/01/16 09:21 91 17 100 Mechanical Ventilator 30 11/01/16 09:16 76 21 30 11/01/16 08:00 30 11/01/16 08:00 63 11/01/16 08:00 97.2 73 18 98/65 100 Mechanical Ventilator 30 11/01/16 06:40 73 23 30 11/01/16 05:39 83 16 100 Mechanical Ventilator 30 11/01/16 05:25 30 11/01/16 05:25 80 16 100 Mechanical Ventilator 30 11/01/16 05:22 80 21 30 11/01/16 04:00 97.7 79 15 97/61 100 11/01/16 04:00 85 11/01/16 04:00 10.0 30 11/01/16 04:00 97.0 83 16 93/60 100 Nasal Cannula 11/01/16 03:25 73 16 30 11/01/16 01:21 30 11/01/16 01:21 81 19 100 Mechanical Ventilator 30 11/01/16 01:20 81 19 30 11/01/16 00:00 77 11/01/16 00:00 97.5 83 16 94/66 100 11/01/16 00:00 10.0 30 10/31/16 23:06 71 16 30 10/31/16 20:56 73 16 100 Mechanical Ventilator 30 10/31/16 20:48 30 10/31/16 20:48 70 16 100 Mechanical Ventilator 30 10/31/16 20:47 70 16 30 10/31/16 20:00 97.2 68 16 101/53 100 Room Air 10/31/16 20:00 77 10/31/16 20:00 97.2 68 16 101/53 100 10/31/16 20:00 10.0 30 10/31/16 19:21 68 16 30 10/31/16 17:01 81 24 30 10/31/16 16:00 82 10/31/16 16:00 10.0 30 10/31/16 16:00 97.5 81 18 91/72 100 Mechanical Ventilator 30 10/31/16 14:37 79 16 30 10/31/16 14:37 79 16 100 Mechanical Ventilator 10.0 30 10/31/16 14:37 79 16 100 Mechanical Ventilator 30 10/31/16 14:37 30 10/31/16 13:25 69 16 30 Intake and Output 10/31/16 11/01/16 19:00 07:00 Intake Total 660 ml 865 ml Output Total 350 ml 400 ml Balance 310 ml 465 ml Intake Oral 720 ml Free Water 300 ml Tube Feeding 360 ml 45 ml Other 100 ml Output Urine Total 350 ml 400 ml # Voids 1 # Bowel Movements 1 2 Objective Status: awake HEENT: atraumatic, normocephalic Lungs: clear, decreased breath sounds Heart: HR/BP stable Abdomen: soft, non-tender Extremities: no C/C/E, edema Laboratory Tests 11/01/16 05:15: White Blood Count 5.4, Red Blood Count 3.86L, Hemoglobin 10.5L, Hematocrit 33.9L , Mean Corpuscular Volume 88, Mean Corpuscular Hemoglobin 27.3, Mean Corpuscular Hemoglobin Concent 31.0L, Red Cell Distribution Width 14.9H, Platelet Count 337, Mean Platelet Volume 6.4L, Neutrophils (%) (Auto) 58.2, Lymphocytes (%) (Auto) 27.3, Monocytes (%) (Auto) 8.7, Eosinophils (%) (Auto) 4.0H, Basophils (%) (Auto) 1.8, Sodium Level 136, Potassium Level 4.2, Chloride Level 95L, Carbon Dioxide Level 26, Anion Gap 15, Blood Urea Nitrogen 11, Creatinine 0.7, Estimat Glomerular Filtration Rate > 60, Glucose Level 108H, Calcium Level 9.1 Current Medications Medications (Trade) Dose Ordered Sig/Shraddha Route PRN Reason Start Time Stop Time Status Last Admin Dose Admin Acetaminophen (Tylenol) 650 mg Q4H PRN ORAL fever>100.5 10/05/16 11:30 11/04/16 11:29 11/01/16 00:55 Albuterol/ Ipratropium (DuoNeb 0.5-3(2.5)mg/3ml) 3 ml Q4H PRN HHN Shortness of Breath 10/30/16 07:45 11/04/16 07:44 11/01/16 09:21 Dextrose (Dextrose 50%) STAT PRN IV Hypoglycemia 10/05/16 11:30 11/04/16 11:29 Insulin Aspart (NovoLOG) start when feeding started Q6HR SUBQ 10/05/16 12:00 11/04/16 11:59 11/01/16 06:00 Lansoprazole (Prevacid) 30 mg DAILY GT 10/31/16 09:00 11/30/16 08:59 11/01/16 08:53 Metoclopramide HCl (Reglan) 10 mg THREE TIMES A DAY GT 10/24/16 19:00 11/23/16 18:59 11/01/16 12:04 Ondansetron HCl (Zofran) 4 mg Q6H PRN IVP Nausea & Vomiting 10/05/16 11:30 11/04/16 11:29 10/24/16 09:17 Polyethylene Glycol (Miralax) 17 gm DAILYPRN PRN GT Constipation 10/25/16 01:00 11/24/16 00:59 REN WRIGHT Nov 01, 2016 12:30
--- NOTE | 2016-11-01 14:26 | Infectious Diseases Prog Note ---
Assessment/Plan Assessment/Plan ASSESSMENT: 66 y/o male with: // COPD exacerbation - delayed SCx 4+ PSA SP Rx - CXR 09/27: Lungs are hyperinflated. No new infiltrates - negative: influenza // Leukocytosis - SP ( post op, 10/01 SP steroids ) // Diarrhea x 1 resolved C Diff Neg // Febrile low grade , SP // HIV and Hep B/C : neg // - PEG 10/04 // Acute VDRF - intubated 09/20, 10/03 SP trach // Severe pulmonary HTN / grade I diastolic dysfunction / mod TR // Pulmonary nodules // Chronic RLE DVT // Tobacco abuse // [facility] resident // Negative MRSA, VRE screens // NKDA // Full Code PLAN: - Monitor pt off of AB Rx ( 10/17 SP Ceftazidime d# 14 ) ( 10/13 SP Jairon nebs d# 14 ) ( 10/11 SP Flagyl d# 10 ) ( 10/04 SP oral Vanco d# 3 ) ( 09/24 SP amikacin, invanz d# 5 / 5 ) ( 09/21 SP IV vancomycin d# 2 ) - taper steroids per pulm - monitor CBC, temperatures - monitor BMP - monitor CXR - vent support, wean as tolerated. Subjective Constitutional: Denies: anorexia, chills, drenching sweats, fatigue, fever, no symptoms, other Allergies: Coded Allergies: No Known Allergies (Unverified , 06/17/16) Objective Vital Signs Last 24 Hour Vital Signs Date Time Temp Pulse Resp B/P Pulse Ox O2 Delivery O2 Flow Rate FiO2 11/01/16 13:17 74 20 30 11/01/16 12:00 97.5 70 18 96/60 99 Mechanical Ventilator 30 11/01/16 10:40 63 23 30 11/01/16 09:21 30 11/01/16 09:21 91 17 100 Mechanical Ventilator 30 11/01/16 09:16 76 21 30 11/01/16 08:00 30 11/01/16 08:00 63 11/01/16 08:00 97.2 73 18 98/65 100 Mechanical Ventilator 30 11/01/16 06:40 73 23 30 11/01/16 05:39 83 16 100 Mechanical Ventilator 30 11/01/16 05:25 30 11/01/16 05:25 80 16 100 Mechanical Ventilator 30 11/01/16 05:22 80 21 30 11/01/16 04:00 97.7 79 15 97/61 100 11/01/16 04:00 85 11/01/16 04:00 10.0 30 11/01/16 04:00 97.0 83 16 93/60 100 Nasal Cannula 11/01/16 03:25 73 16 30 11/01/16 01:21 30 11/01/16 01:21 81 19 100 Mechanical Ventilator 30 11/01/16 01:20 81 19 30 11/01/16 00:00 77 11/01/16 00:00 97.5 83 16 94/66 100 11/01/16 00:00 10.0 30 10/31/16 23:06 71 16 30 10/31/16 20:56 73 16 100 Mechanical Ventilator 30 10/31/16 20:48 30 10/31/16 20:48 70 16 100 Mechanical Ventilator 30 10/31/16 20:47 70 16 30 10/31/16 20:00 97.2 68 16 101/53 100 Room Air 10/31/16 20:00 77 10/31/16 20:00 97.2 68 16 101/53 100 10/31/16 20:00 10.0 30 10/31/16 19:21 68 16 30 10/31/16 17:01 81 24 30 10/31/16 16:00 82 10/31/16 16:00 10.0 30 10/31/16 16:00 97.5 81 18 91/72 100 Mechanical Ventilator 30 10/31/16 14:37 79 16 30 10/31/16 14:37 79 16 100 Mechanical Ventilator 10.0 30 10/31/16 14:37 79 16 100 Mechanical Ventilator 30 10/31/16 14:37 30 Height (Feet): 6 Height (Inches): 2.00 Weight (Pounds): 126 HEENT: atraumatic Respiratory/Chest: normal breath sounds Cardiovascular: regular rhythm Abdomen: soft, non tender Laboratory Tests Test 11/01/16 05:15 White Blood Count 5.4 K/UL (4.8-10.8) Red Blood Count 3.86 M/UL (4.70-6.10) L Hemoglobin 10.5 G/DL (14.2-18.0) L Hematocrit 33.9 % (42.0-52.0) L Mean Corpuscular Volume 88 FL (80-99) Mean Corpuscular Hemoglobin 27.3 PG (27.0-31.0) Mean Corpuscular Hemoglobin Concent 31.0 G/DL (32.0-36.0) L Red Cell Distribution Width 14.9 % (11.6-14.8) H Platelet Count 337 K/UL (150-450) Mean Platelet Volume 6.4 FL (6.5-10.1) L Neutrophils (%) (Auto) 58.2 % (45.0-75.0) Lymphocytes (%) (Auto) 27.3 % (20.0-45.0) Monocytes (%) (Auto) 8.7 % (1.0-10.0) Eosinophils (%) (Auto) 4.0 % (0.0-3.0) H Basophils (%) (Auto) 1.8 % (0.0-2.0) Sodium Level 136 mEQ/L (135-145) Potassium Level 4.2 mEQ/L (3.4-4.9) Chloride Level 95 mEQ/L (98-107) L Carbon Dioxide Level 26 mEQ/L (20-30) Anion Gap 15 (5-15) Blood Urea Nitrogen 11 mg/dL (7-23) Creatinine 0.7 mg/dL (0.7-1.2) Estimat Glomerular Filtration Rate > 60 mL/min (>60) Glucose Level 108 mg/dL (74-106) H Calcium Level 9.1 mg/dL (8.6-10.2) Current Medications Medications (Trade) Dose Ordered Sig/Shraddha Route PRN Reason Start Time Stop Time Status Last Admin Dose Admin Acetaminophen (Tylenol) 650 mg Q4H PRN ORAL fever>100.5 10/05/16 11:30 11/04/16 11:29 11/01/16 00:55 Albuterol/ Ipratropium (DuoNeb 0.5-3(2.5)mg/3ml) 3 ml Q4H PRN HHN Shortness of Breath 10/30/16 07:45 11/04/16 07:44 11/01/16 13:25 Dextrose (Dextrose 50%) STAT PRN IV Hypoglycemia 10/05/16 11:30 11/04/16 11:29 Insulin Aspart (NovoLOG) start when feeding started Q6HR SUBQ 10/05/16 12:00 11/04/16 11:59 11/01/16 06:00 Lansoprazole (Prevacid) 30 mg DAILY GT 10/31/16 09:00 11/30/16 08:59 11/01/16 08:53 Metoclopramide HCl (Reglan) 10 mg THREE TIMES A DAY GT 10/24/16 19:00 11/23/16 18:59 11/01/16 12:04 Ondansetron HCl (Zofran) 4 mg Q6H PRN IVP Nausea & Vomiting 10/05/16 11:30 11/04/16 11:29 10/24/16 09:17 Polyethylene Glycol (Miralax) 17 gm DAILYPRN PRN GT Constipation 10/25/16 01:00 11/24/16 00:59 KIMBERLEE HINKLE M.D. Nov 01, 2016 14:26
[2016-11-01 16:00] VITALS: BP 113/63
--- NOTE | 2016-11-01 16:37 | Internal Med Progress Note ---
Subjective Date of Service: Nov 01, 2016 Physician Name Tadeo Verdin Attending Physician Steve Rader MD Current Medications Medications (Trade) Dose Ordered Sig/Shraddha Route PRN Reason Start Time Stop Time Status Last Admin Dose Admin Acetaminophen (Tylenol) 650 mg Q4H PRN ORAL fever>100.5 10/05/16 11:30 11/04/16 11:29 11/01/16 00:55 Albuterol/ Ipratropium (DuoNeb 0.5-3(2.5)mg/3ml) 3 ml Q4H PRN HHN Shortness of Breath 10/30/16 07:45 11/04/16 07:44 11/01/16 13:25 Dextrose (Dextrose 50%) STAT PRN IV Hypoglycemia 10/05/16 11:30 11/04/16 11:29 Insulin Aspart (NovoLOG) start when feeding started Q6HR SUBQ 10/05/16 12:00 11/04/16 11:59 11/01/16 06:00 Lansoprazole (Prevacid) 30 mg DAILY GT 10/31/16 09:00 11/30/16 08:59 11/01/16 08:53 Metoclopramide HCl (Reglan) 10 mg THREE TIMES A DAY GT 10/24/16 19:00 11/23/16 18:59 11/01/16 12:04 Ondansetron HCl (Zofran) 4 mg Q6H PRN IVP Nausea & Vomiting 10/05/16 11:30 11/04/16 11:29 10/24/16 09:17 Polyethylene Glycol (Miralax) 17 gm DAILYPRN PRN GT Constipation 10/25/16 01:00 11/24/16 00:59 Allergies: Coded Allergies: No Known Allergies (Unverified , 06/17/16) ROS Limited/Unobtainable: Yes Subjective 66 YO M admitted with respiratory failure. JORDAN. Intubated and sedated. Await placement at nursing home acute care facility. Cover for Int Med-Dr Rader. Objective Last Vital Signs Date Time Temp Pulse Resp B/P Pulse Ox O2 Delivery O2 Flow Rate FiO2 11/01/16 15:03 101 26 30 11/01/16 12:00 97.5 96/60 99 Mechanical Ventilator 11/01/16 04:00 10.0 Laboratory Tests Test 11/01/16 05:15 White Blood Count 5.4 K/UL (4.8-10.8) Red Blood Count 3.86 M/UL (4.70-6.10) L Hemoglobin 10.5 G/DL (14.2-18.0) L Hematocrit 33.9 % (42.0-52.0) L Mean Corpuscular Volume 88 FL (80-99) Mean Corpuscular Hemoglobin 27.3 PG (27.0-31.0) Mean Corpuscular Hemoglobin Concent 31.0 G/DL (32.0-36.0) L Red Cell Distribution Width 14.9 % (11.6-14.8) H Platelet Count 337 K/UL (150-450) Mean Platelet Volume 6.4 FL (6.5-10.1) L Neutrophils (%) (Auto) 58.2 % (45.0-75.0) Lymphocytes (%) (Auto) 27.3 % (20.0-45.0) Monocytes (%) (Auto) 8.7 % (1.0-10.0) Eosinophils (%) (Auto) 4.0 % (0.0-3.0) H Basophils (%) (Auto) 1.8 % (0.0-2.0) Sodium Level 136 mEQ/L (135-145) Potassium Level 4.2 mEQ/L (3.4-4.9) Chloride Level 95 mEQ/L (98-107) L Carbon Dioxide Level 26 mEQ/L (20-30) Anion Gap 15 (5-15) Blood Urea Nitrogen 11 mg/dL (7-23) Creatinine 0.7 mg/dL (0.7-1.2) Estimat Glomerular Filtration Rate > 60 mL/min (>60) Glucose Level 108 mg/dL (74-106) H Calcium Level 9.1 mg/dL (8.6-10.2) Intake and Output 10/31/16 11/01/16 19:00 07:00 Intake Total 660 ml 865 ml Output Total 350 ml 400 ml Balance 310 ml 465 ml Intake Oral 720 ml Free Water 300 ml Tube Feeding 360 ml 45 ml Other 100 ml Output Urine Total 350 ml 400 ml # Voids 1 # Bowel Movements 1 2 Objective General Appearance: moderate distress, thin EENT: PERRL/EOMI, normal ENT inspection Neck: non-tender, normal alignment, supple Cardiovascular: normal peripheral pulses, normal rate, regular rhythm, no gallop/murmur, no JVD Respiratory/Chest: Trach; Mech Vent; trach; respiratory distress, crackles/ rales, rhonchi - bilaterally, expiratory wheezing Abdomen: non tender, soft, no organomegaly, no mass, decreased bowel sounds Extremities: normal range of motion Skin: normal pigmentation, warm/dry Assessment/Plan Problem List: (1) Lung nodule (2) DVT (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 (3) Acute respiratory failure Assessment & Plan: S/P tracheostomy 10/03/16. Failed weaning trial. Cont vent per pulmonary (4) COPD exacerbation Assessment & Plan: Continue duoneb. Continue vent per pulmonary. (5) Pneumonia Assessment & Plan: Observe off antibiotics per ID (6) Leukocytosis Assessment & Plan: Continue off antibiotics per ID. (7) Dysphagia Assessment & Plan: See GI consult- S/P PEG 10/04/16. (8) Hypoglycemia Assessment & Plan: D50 prn; decrease insulin sliding scale. (9) Dysuria Assessment & Plan: D/C garcia cath. Assessment/Plan Discharge Planning: shelter acute caree facility when bed available-see soc work note. TADEO VERDIN Nov 01, 2016 16:37
[2016-11-01 20:00] VITALS: BP 103/74
[2016-11-02] MEDS: DuoNeb 0.5-3(2.5)mg/3ml neb HHN PRN ×5 (02:45→22:50)
[2016-11-02 04:00] VITALS: BP 95/67
[2016-11-02] MEDS: NovoLOG Insulin Flexpen SUBQ SCH ×4 (06:00→17:53)
[2016-11-02 06:55] LABS: BASOPHILS % (AUTO) 2.1 % (0.0-2.0); LYMPHOCYTES % (AUTO) 19.7 % (20.0-45.0); MEAN CORPUSCULAR HEMOGLOBIN 27.7 PG (27.0-31.0); MEAN CORPUSCULAR HGB CONC 30.9 G/DL (32.0-36.0); MEAN CORPUSCULAR VOLUME 90 FL (80-99); MEAN PLATELET VOLUME 7.2 FL (6.5-10.1); MONOCYTES % (AUTO) 13.5 % (1.0-10.0); NEUTROPHILS % (AUTO) 62.8 % (45.0-75.0); PLATELET COUNT 353 K/UL (150-450); RED BLOOD COUNT 3.96 M/UL (4.70-6.10); WHITE BLOOD COUNT 7.7 K/UL (4.8-10.8)
[2016-11-02 07:22] LABS: ANION GAP 12 (5-15); CALCIUM 9.3 mg/dL (8.6-10.2); CARBON DIOXIDE 29 mEQ/L (20-30); CHLORIDE 101 mEQ/L (98-107); CREATININE 0.7 mg/dL (0.7-1.2); GLOMERULAR FILTRATION RATE > 60 mL/min (>60); HEMOLYSIS 7; POTASSIUM 4.3 mEQ/L (3.4-4.9); SODIUM 142 mEQ/L (135-145)
[2016-11-02 08:00] VITALS: BP 118/75
[2016-11-02 12:00] VITALS: BP 126/95
[2016-11-02 16:00] VITALS: BP 98/75
--- NOTE | 2016-11-02 16:24 | Internal Med Progress Note ---
Subjective Date of Service: Nov 02, 2016 Physician Name Tadeo Verdin Attending Physician Steve Rader MD Current Medications Medications (Trade) Dose Ordered Sig/Shraddha Route PRN Reason Start Time Stop Time Status Last Admin Dose Admin Acetaminophen (Tylenol) 650 mg Q4H PRN ORAL fever>100.5 10/05/16 11:30 11/04/16 11:29 11/02/16 01:41 Albuterol/ Ipratropium (DuoNeb 0.5-3(2.5)mg/3ml) 3 ml Q4H PRN HHN Shortness of Breath 10/30/16 07:45 11/04/16 07:44 11/02/16 12:24 Dextrose (Dextrose 50%) STAT PRN IV Hypoglycemia 10/05/16 11:30 11/04/16 11:29 Insulin Aspart (NovoLOG) start when feeding started Q6HR SUBQ 10/05/16 12:00 11/04/16 11:59 11/02/16 11:46 Lansoprazole (Prevacid) 30 mg DAILY GT 10/31/16 09:00 11/30/16 08:59 11/02/16 09:08 Metoclopramide HCl (Reglan) 10 mg THREE TIMES A DAY GT 10/24/16 19:00 11/23/16 18:59 11/02/16 13:34 Ondansetron HCl (Zofran) 4 mg Q6H PRN IVP Nausea & Vomiting 10/05/16 11:30 11/04/16 11:29 10/24/16 09:17 Polyethylene Glycol (Miralax) 17 gm DAILYPRN PRN GT Constipation 10/25/16 01:00 11/24/16 00:59 Allergies: Coded Allergies: No Known Allergies (Unverified , 06/17/16) ROS Limited/Unobtainable: Yes Subjective 66 YO M admitted with respiratory failure. JORDAN. Intubated and sedated. Await placement at half-way acute care facility. Cover for Int Med-Dr Rader. Objective Last Vital Signs Date Time Temp Pulse Resp B/P Pulse Ox O2 Delivery O2 Flow Rate FiO2 11/02/16 16:00 30 11/02/16 15:30 96 11/02/16 14:38 28 11/02/16 12:24 100 Mechanical Ventilator 11/02/16 12:00 97.5 126/95 11/01/16 04:00 10.0 Laboratory Tests Test 11/02/16 06:29 White Blood Count 7.7 K/UL (4.8-10.8) Red Blood Count 3.96 M/UL (4.70-6.10) L Hemoglobin 11.0 G/DL (14.2-18.0) L Hematocrit 35.5 % (42.0-52.0) L Mean Corpuscular Volume 90 FL (80-99) Mean Corpuscular Hemoglobin 27.7 PG (27.0-31.0) Mean Corpuscular Hemoglobin Concent 30.9 G/DL (32.0-36.0) L Red Cell Distribution Width 15.0 % (11.6-14.8) H Platelet Count 353 K/UL (150-450) Mean Platelet Volume 7.2 FL (6.5-10.1) Neutrophils (%) (Auto) 62.8 % (45.0-75.0) Lymphocytes (%) (Auto) 19.7 % (20.0-45.0) L Monocytes (%) (Auto) 13.5 % (1.0-10.0) H Eosinophils (%) (Auto) 2.0 % (0.0-3.0) Basophils (%) (Auto) 2.1 % (0.0-2.0) H Sodium Level 142 mEQ/L (135-145) Potassium Level 4.3 mEQ/L (3.4-4.9) Chloride Level 101 mEQ/L (98-107) Carbon Dioxide Level 29 mEQ/L (20-30) Anion Gap 12 (5-15) Blood Urea Nitrogen 13 mg/dL (7-23) Creatinine 0.7 mg/dL (0.7-1.2) Estimat Glomerular Filtration Rate > 60 mL/min (>60) Glucose Level 84 mg/dL (74-106) Calcium Level 9.3 mg/dL (8.6-10.2) Intake and Output 11/01/16 11/02/16 19:00 07:00 Intake Total 940 ml 100 ml Output Total 250 ml 500 ml Balance 690 ml -400 ml Free Water 225 ml 100 ml Tube Feeding 715 ml Output Urine Total 250 ml 500 ml # Bowel Movements 1 1 Objective General Appearance: moderate distress, thin EENT: PERRL/EOMI, normal ENT inspection Neck: non-tender, normal alignment, supple Cardiovascular: normal peripheral pulses, normal rate, regular rhythm, no gallop/murmur, no JVD Respiratory/Chest: Trach; Mech Vent; trach; respiratory distress, crackles/ rales, rhonchi - bilaterally, expiratory wheezing Abdomen: non tender, soft, no organomegaly, no mass, decreased bowel sounds Extremities: normal range of motion Skin: normal pigmentation, warm/dry Assessment/Plan Problem List: (1) Lung nodule (2) DVT (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 (3) Acute respiratory failure Assessment & Plan: S/P tracheostomy 10/03/16. Failed weaning trial. Cont vent per pulmonary (4) COPD exacerbation Assessment & Plan: Continue duoneb. Continue vent per pulmonary. (5) Pneumonia Assessment & Plan: Observe off antibiotics per ID (6) Leukocytosis Assessment & Plan: Continue off antibiotics per ID. (7) Dysphagia Assessment & Plan: See GI consult- S/P PEG 10/04/16. (8) Hypoglycemia Assessment & Plan: D50 prn; decrease insulin sliding scale. (9) Dysuria Assessment & Plan: D/C garcia cath. Assessment/Plan Discharge Planning: [facility] acute care[facility] facility when bed available-see soc work note. TADEO VERDIN Nov 02, 2016 16:24
--- NOTE | 2016-11-02 16:59 | Pulmonology Progress Note ---
Assessment/Plan Assessment/Plan ASSESSMENT acute hypoxemic hypercapnic respiratory failure requiring intubation failure to wean s/p trach 10/03 dysphagia, G tube placement 10/04 acute COPD exacerbation emphysema possible PNA , s/p Rx Pulmonary nodules Chronic RLE DVT Tobacco abuse Hx HTN DM acute on chronic encephalopathy anemia elevated LFT -resolved PLAN OF CARE JORDAN vent , trach care Pulmonary toilet try to wean to trach collar if able s/p Abx Rx, ID follows, observe off abx s/p steroids, BS management with sensitive SS of insulin strict aspiration precautions, monitor GT feeding tolerance pain management bowel regimen monitor HH, anemia workup with low iron, stool OB positive, s/p Venofer GI follows GI recommended to repeat stool OB in 2-3- weeks PPI LFT stable currently, hepatitis panel negative abdominal US no dilated ducts awaiting for placement to subacute, transfer when placement arranged case discussed and evaluated by supervising physician Subjective Allergies: Coded Allergies: No Known Allergies (Unverified , 06/17/16) Subjective awake, denies congestion, chest pain, SOB leukocytosis resolved, afebrile, tolerates GT feeding no signs of respiratory distress awaiting for placement Objective Last 24 Hour Vital Signs Date Time Temp Pulse Resp B/P Pulse Ox O2 Delivery O2 Flow Rate FiO2 11/02/16 16:45 103 27 30 11/02/16 16:00 30 11/02/16 15:30 96 11/02/16 14:38 124 28 30 11/02/16 13:30 120 11/02/16 12:59 105 23 30 11/02/16 12:24 105 23 100 Mechanical Ventilator 11/02/16 12:00 97.5 130 24 126/95 100 Mechanical Ventilator 30 11/02/16 12:00 30 11/02/16 11:55 99 11/02/16 10:47 116 24 30 11/02/16 09:18 115 19 30 11/02/16 08:11 102 16 100 Mechanical Ventilator 11/02/16 08:01 95 19 100 Mechanical Ventilator 30 11/02/16 08:01 30 11/02/16 08:00 97.7 109 16 118/75 100 Mechanical Ventilator 30 11/02/16 08:00 30 11/02/16 08:00 92 11/02/16 06:45 95 19 30 11/02/16 05:01 114 16 30 11/02/16 04:00 30 11/02/16 04:00 97.7 100 22 95/67 100 11/02/16 04:00 118 11/02/16 03:10 30 11/02/16 03:10 122 16 100 Mechanical Ventilator 30 11/02/16 02:45 114 16 100 Mechanical Ventilator 30 11/02/16 02:43 114 16 30 11/02/16 00:47 118 16 30 11/02/16 00:00 124 11/02/16 00:00 30 11/01/16 22:45 30 11/01/16 22:45 98 16 100 Mechanical Ventilator 30 11/01/16 22:43 105 16 100 Mechanical Ventilator 30 11/01/16 22:43 105 16 30 11/01/16 22:06 92 11/01/16 21:00 30 11/01/16 20:47 79 20 30 11/01/16 20:00 98.6 92 22 103/74 100 Mechanical Ventilator 30 11/01/16 19:21 83 17 30 11/01/16 18:30 83 17 100 Mechanical Ventilator 30 11/01/16 18:30 30 11/01/16 18:20 83 17 100 Mechanical Ventilator 30 Intake and Output 11/01/16 11/02/16 19:00 07:00 Intake Total 940 ml 100 ml Output Total 250 ml 500 ml Balance 690 ml -400 ml Free Water 225 ml 100 ml Tube Feeding 715 ml Output Urine Total 250 ml 500 ml # Bowel Movements 1 1 Objective General Appearance: no apparent distress, vent AC 600-16-30% HEENT: normocephalic, atraumatic, anicteric Neck: trach, Shiley #8, secretions small , yellow, thin Respiratory/Chest: decreased breath sounds Cardiovascular/Chest: regular rate and rhythm, no JVD, occasionally ST Abdomen: normal bowel sounds, non tender, soft Extremities: normal capillary refill Neurologic: abnormal gait, awake, alert, responsive Musculoskeletal: normal muscle bulk Laboratory Tests 11/02/16 06:29: White Blood Count 7.7, Red Blood Count 3.96L, Hemoglobin 11.0L, Hematocrit 35.5L , Mean Corpuscular Volume 90, Mean Corpuscular Hemoglobin 27.7, Mean Corpuscular Hemoglobin Concent 30.9L, Red Cell Distribution Width 15.0H, Platelet Count 353, Mean Platelet Volume 7.2, Neutrophils (%) (Auto) 62.8, Lymphocytes (%) (Auto) 19.7L, Monocytes (%) (Auto) 13.5H, Eosinophils (%) (Auto ) 2.0, Basophils (%) (Auto) 2.1H, Sodium Level 142, Potassium Level 4.3, Chloride Level 101, Carbon Dioxide Level 29, Anion Gap 12, Blood Urea Nitrogen 13, Creatinine 0.7, Estimat Glomerular Filtration Rate > 60, Glucose Level 84, Calcium Level 9.3 Current Medications Medications (Trade) Dose Ordered Sig/Shraddha Route PRN Reason Start Time Stop Time Status Last Admin Dose Admin Acetaminophen (Tylenol) 650 mg Q4H PRN ORAL fever>100.5 10/05/16 11:30 11/04/16 11:29 11/02/16 01:41 Albuterol/ Ipratropium (DuoNeb 0.5-3(2.5)mg/3ml) 3 ml Q4H PRN HHN Shortness of Breath 10/30/16 07:45 11/04/16 07:44 11/02/16 12:24 Dextrose (Dextrose 50%) STAT PRN IV Hypoglycemia 10/05/16 11:30 11/04/16 11:29 Insulin Aspart (NovoLOG) start when feeding started Q6HR SUBQ 10/05/16 12:00 11/04/16 11:59 11/02/16 11:46 Lansoprazole (Prevacid) 30 mg DAILY GT 10/31/16 09:00 11/30/16 08:59 11/02/16 09:08 Metoclopramide HCl (Reglan) 10 mg THREE TIMES A DAY GT 10/24/16 19:00 11/23/16 18:59 11/02/16 13:34 Ondansetron HCl (Zofran) 4 mg Q6H PRN IVP Nausea & Vomiting 10/05/16 11:30 11/04/16 11:29 10/24/16 09:17 Polyethylene Glycol (Miralax) 17 gm DAILYPRN PRN GT Constipation 10/25/16 01:00 11/24/16 00:59 Katia Sequeira NP ([facility]anchtein) Nov 02, 2016 16:59
[2016-11-02 20:00] VITALS: BP 97/68
[2016-11-03] VITALS (8 sets, daily range): BP systolic 89–132; BP diastolic 57–86
[2016-11-03] MEDS: DuoNeb 0.5-3(2.5)mg/3ml neb HHN PRN ×3 (05:18→13:45)
[2016-11-03 05:32] LABS: MEAN CORPUSCULAR HEMOGLOBIN 29.1 PG (27.0-31.0); MEAN CORPUSCULAR HGB CONC 32.5 G/DL (32.0-36.0); MEAN CORPUSCULAR VOLUME 90 FL (80-99); MEAN PLATELET VOLUME 6.6 FL (6.5-10.1); PLATELET COUNT 340 K/UL (150-450); RED BLOOD COUNT 4.06 M/UL (4.70-6.10); RED CELL DISTRIBUTION WIDTH 14.9 % (11.6-14.8)
[2016-11-03] MEDS: NovoLOG Insulin Flexpen SUBQ SCH ×5 (06:00→23:28)
[2016-11-03 06:04] LABS: ANION GAP 15 (5-15); CALCIUM 9.5 mg/dL (8.6-10.2); CARBON DIOXIDE 28 mEQ/L (20-30); CHLORIDE 98 mEQ/L (98-107); CREATININE 0.8 mg/dL (0.7-1.2); GLOMERULAR FILTRATION RATE > 60 mL/min (>60); HEMOLYSIS 3; SODIUM 141 mEQ/L (135-145)
[2016-11-03 06:33] LABS: WHITE BLOOD COUNT 26.3 K/UL (4.8-10.8)
[2016-11-03] MEDS: Acetaminophen 650mg/20.3ml GT PRN (07:58)
[2016-11-03 09:02] LABS: BAND NEUTROPHILS % (MANUAL) 0 % (0-8); BASOPHILS % (MANUAL) 0 % (0-2); EOSINOPHILS % (MANUAL) 0 % (0-3); LYMPHOCYTES % (MANUAL) 9 % (20-45); NEUTROPHILS % (MANUAL) 84 % (45-75); PLATELET ESTIMATE ADEQUATE; TOTAL CELLS COUNTED 100
[2016-11-03 09:03] LABS: PLATELET MORPHOLOGY NORMAL
--- NOTE | 2016-11-03 09:49 | Infectious Diseases Prog Note ---
Assessment/Plan Assessment/Plan A: Pneumonia with Pseudomonas s/p RX Leukocytosis increased COPD VDRF Pulmonary HPN P: Repeat UA, UC, CXR start on Cefepime Subjective ROS Limited/Unobtainable: Yes Allergies: Coded Allergies: No Known Allergies (Unverified , 06/17/16) Objective Vital Signs Last 24 Hour Vital Signs Date Time Temp Pulse Resp B/P Pulse Ox O2 Delivery O2 Flow Rate FiO2 11/03/16 09:20 96 17 30 11/03/16 07:00 102 17 30 11/03/16 05:45 105 16 100 Mechanical Ventilator 30 11/03/16 05:22 107 16 100 Mechanical Ventilator 30 11/03/16 05:18 109 16 30 11/03/16 04:00 128 11/03/16 04:00 30 11/03/16 04:00 98.0 127 24 90/68 100 Mechanical Ventilator 30 11/03/16 03:10 126 16 30 11/03/16 00:43 122 16 30 11/03/16 00:00 30 11/03/16 00:00 121 11/03/16 00:00 97.4 125 24 122/57 98 Mechanical Ventilator 30 11/02/16 23:11 117 24 100 Mechanical Ventilator 30 11/02/16 22:50 119 25 100 Mechanical Ventilator 30 11/02/16 22:49 117 25 30 11/02/16 20:50 122 24 30 11/02/16 20:00 97.0 123 24 97/68 99 Mechanical Ventilator 30 11/02/16 20:00 30 11/02/16 20:00 116 11/02/16 18:43 114 24 100 Mechanical Ventilator 30 11/02/16 18:39 116 25 30 11/02/16 16:45 103 27 30 11/02/16 16:00 97.9 104 17 98/75 100 Mechanical Ventilator 30 11/02/16 16:00 30 11/02/16 16:00 99 11/02/16 15:30 96 11/02/16 14:38 124 28 30 11/02/16 13:30 120 11/02/16 12:59 105 23 30 11/02/16 12:24 105 23 100 Mechanical Ventilator 30 11/02/16 12:00 97.5 130 24 126/95 100 Mechanical Ventilator 30 11/02/16 12:00 30 11/02/16 11:55 99 11/02/16 10:47 116 24 30 Height (Feet): 6 Height (Inches): 2.00 Weight (Pounds): 126 General Appearance: no acute distress HEENT: status post trach Respiratory/Chest: lungs clear, other - on ventilator Cardiovascular: tachycardia Abdomen: soft, non tender Extremities: no edema Neurologic/Psychiatric: other - sleeping Laboratory Tests Test 11/03/16 04:43 White Blood Count 26.3 K/UL (4.8-10.8) #*H Red Blood Count 4.06 M/UL (4.70-6.10) L Hemoglobin 11.8 G/DL (14.2-18.0) L Hematocrit 36.4 % (42.0-52.0) L Mean Corpuscular Volume 90 FL (80-99) Mean Corpuscular Hemoglobin 29.1 PG (27.0-31.0) Mean Corpuscular Hemoglobin Concent 32.5 G/DL (32.0-36.0) Red Cell Distribution Width 14.9 % (11.6-14.8) H Platelet Count 340 K/UL (150-450) Mean Platelet Volume 6.6 FL (6.5-10.1) Neutrophils (%) (Auto) % (45.0-75.0) Lymphocytes (%) (Auto) % (20.0-45.0) Monocytes (%) (Auto) % (1.0-10.0) Eosinophils (%) (Auto) % (0.0-3.0) Basophils (%) (Auto) % (0.0-2.0) Differential Total Cells Counted 100 Neutrophils % (Manual) 84 % (45-75) H Lymphocytes % (Manual) 9 % (20-45) L Monocytes % (Manual) 7 % (1-10) Eosinophils % (Manual) 0 % (0-3) Basophils % (Manual) 0 % (0-2) Band Neutrophils 0 % (0-8) Platelet Estimate Adequate Platelet Morphology Normal Red Blood Cell Morphology Normal Sodium Level 141 mEQ/L (135-145) Potassium Level 5.0 mEQ/L (3.4-4.9) H Chloride Level 98 mEQ/L (98-107) Carbon Dioxide Level 28 mEQ/L (20-30) Anion Gap 15 (5-15) Blood Urea Nitrogen 17 mg/dL (7-23) Creatinine 0.8 mg/dL (0.7-1.2) Estimat Glomerular Filtration Rate > 60 mL/min (>60) Glucose Level 123 mg/dL (74-106) H Calcium Level 9.5 mg/dL (8.6-10.2) Current Medications Medications (Trade) Dose Ordered Sig/Shraddha Route PRN Reason Start Time Stop Time Status Last Admin Dose Admin Acetaminophen (Tylenol) 650 mg Q4H PRN GT headache 11/03/16 08:00 12/03/16 07:59 11/03/16 07:58 Acetaminophen (Tylenol) 650 mg Q4H PRN ORAL fever>100.5 11/02/16 17:00 12/02/16 16:59 Albuterol/ Ipratropium (DuoNeb 0.5-3(2.5)mg/3ml) 3 ml Q4H PRN HHN Shortness of Breath 11/02/16 17:00 11/07/16 16:59 11/03/16 09:33 Dextrose (Dextrose 50%) STAT PRN IV Hypoglycemia 11/02/16 17:00 12/02/16 16:59 Insulin Aspart (NovoLOG) start when feeding started Q6HR SUBQ 11/02/16 18:00 12/02/16 17:59 11/02/16 17:53 Lansoprazole (Prevacid) 30 mg DAILY GT 10/31/16 09:00 11/30/16 08:59 11/03/16 08:03 Lorazepam (Ativan 2mg/ml 1ml) 0.5 mg Q4H PRN IV For Anxiety 11/03/16 07:45 11/10/16 07:44 Metoclopramide HCl (Reglan) 10 mg THREE TIMES A DAY GT 10/24/16 19:00 11/23/16 18:59 11/03/16 08:03 Ondansetron HCl (Zofran) 4 mg Q6H PRN IVP Nausea & Vomiting 11/02/16 17:00 12/02/16 16:59 Polyethylene Glycol (Miralax) 17 gm DAILYPRN PRN GT Constipation 10/25/16 01:00 11/24/16 00:59 11/03/16 00:00 LINNETTE DIAZ Nov 03, 2016 09:49
[2016-11-03] MEDS: Cefepime HCl 1 GM in D5W 55 ML IVPB SCH ×2 (10:51→22:26)
[2016-11-03 12:35] LABS: MEAN CORPUSCULAR HEMOGLOBIN 28.3 PG (27.0-31.0); MEAN CORPUSCULAR HGB CONC 31.4 G/DL (32.0-36.0); MEAN CORPUSCULAR VOLUME 90 FL (80-99); MEAN PLATELET VOLUME 6.6 FL (6.5-10.1); PLATELET COUNT 302 K/UL (150-450); RED BLOOD COUNT 3.82 M/UL (4.70-6.10)
[2016-11-03 12:38] LABS: WHITE BLOOD COUNT 24.9 K/UL (4.8-10.8)
[2016-11-03 13:03] LABS: BAND NEUTROPHILS % (MANUAL) 0 % (0-8); BASOPHILS % (MANUAL) 0 % (0-2); EOSINOPHILS % (MANUAL) 0 % (0-3); HYPOCHROMASIA 1+; LYMPHOCYTES % (MANUAL) 4 % (20-45); NEUTROPHILS % (MANUAL) 84 % (45-75); PLATELET ESTIMATE ADEQUATE; TOTAL CELLS COUNTED 100
[2016-11-03 13:04] LABS: ANISOCYTOSIS 1+; PLATELET MORPHOLOGY NORMAL
--- NOTE | 2016-11-03 13:34 | Internal Med Progress Note ---
Subjective Date of Service: Nov 03, 2016 Physician Name Tadeo Verdin Attending Physician Steve Rader MD Current Medications Medications (Trade) Dose Ordered Sig/Shraddha Route PRN Reason Start Time Stop Time Status Last Admin Dose Admin Acetaminophen (Tylenol) 650 mg Q4H PRN ORAL fever>100.5 11/02/16 17:00 12/02/16 16:59 Acetaminophen 650 mg 650 mg Q4H PRN GT headache 11/03/16 08:00 12/03/16 07:59 11/03/16 07:58 Albuterol/ Ipratropium (DuoNeb 0.5-3(2.5)mg/3ml) 3 ml Q4H PRN HHN Shortness of Breath 11/02/16 17:00 11/07/16 16:59 11/03/16 09:33 Cefepime HCl/ Dextrose (Maxipime/D5W) 55 ml @ 110 mls/hr Q12H IVPB 11/03/16 11:00 11/10/16 10:59 11/03/16 10:51 Dextrose (Dextrose 50%) STAT PRN IV Hypoglycemia 11/02/16 17:00 12/02/16 16:59 Insulin Aspart (NovoLOG) start when feeding started Q6HR SUBQ 11/02/16 18:00 12/02/16 17:59 11/03/16 11:58 Lansoprazole (Prevacid) 30 mg DAILY GT 10/31/16 09:00 11/30/16 08:59 11/03/16 08:03 Lorazepam (Ativan 2mg/ml 1ml) 0.5 mg Q4H PRN IV For Anxiety 11/03/16 07:45 11/10/16 07:44 Metoclopramide HCl (Reglan) 10 mg THREE TIMES A DAY GT 10/24/16 19:00 11/23/16 18:59 11/03/16 08:03 Ondansetron HCl (Zofran) 4 mg Q6H PRN IVP Nausea & Vomiting 11/02/16 17:00 12/02/16 16:59 Polyethylene Glycol (Miralax) 17 gm DAILYPRN PRN GT Constipation 10/25/16 01:00 11/24/16 00:59 11/03/16 00:00 Allergies: Coded Allergies: No Known Allergies (Unverified , 06/17/16) ROS Limited/Unobtainable: Yes Subjective 66 YO M admitted with respiratory failure. JORDAN. Intubated and sedated. Await placement at senior living acute care facility. Cover for Int [facility]-Dr Rader. Worsening leukocytosis Objective Last Vital Signs Date Time Temp Pulse Resp B/P Pulse Ox O2 Delivery O2 Flow Rate FiO2 11/03/16 12:01 100 11/03/16 11:00 109 17 30 11/03/16 09:30 Mechanical Ventilator 11/03/16 04:00 98.0 90/68 11/01/16 04:00 10.0 Laboratory Tests Test 11/03/16 04:43 11/03/16 11:30 White Blood Count 26.3 K/UL (4.8-10.8) #*H 24.9 K/UL (4.8-10.8) *H Red Blood Count 4.06 M/UL (4.70-6.10) L 3.82 M/UL (4.70-6.10) L Hemoglobin 11.8 G/DL (14.2-18.0) L 10.8 G/DL (14.2-18.0) L Hematocrit 36.4 % (42.0-52.0) L 34.3 % (42.0-52.0) L Mean Corpuscular Volume 90 FL (80-99) 90 FL (80-99) Mean Corpuscular Hemoglobin 29.1 PG (27.0-31.0) 28.3 PG (27.0-31.0) Mean Corpuscular Hemoglobin Concent 32.5 G/DL (32.0-36.0) 31.4 G/DL (32.0-36.0) L Red Cell Distribution Width 14.9 % (11.6-14.8) H 15.0 % (11.6-14.8) H Platelet Count 340 K/UL (150-450) 302 K/UL (150-450) Mean Platelet Volume 6.6 FL (6.5-10.1) 6.6 FL (6.5-10.1) Neutrophils (%) (Auto) % (45.0-75.0) % (45.0-75.0) Lymphocytes (%) (Auto) % (20.0-45.0) % (20.0-45.0) Monocytes (%) (Auto) % (1.0-10.0) % (1.0-10.0) Eosinophils (%) (Auto) % (0.0-3.0) % (0.0-3.0) Basophils (%) (Auto) % (0.0-2.0) % (0.0-2.0) Differential Total Cells Counted 100 100 Neutrophils % (Manual) 84 % (45-75) H 84 % (45-75) H Lymphocytes % (Manual) 9 % (20-45) L 4 % (20-45) L Monocytes % (Manual) 7 % (1-10) 12 % (1-10) H Eosinophils % (Manual) 0 % (0-3) 0 % (0-3) Basophils % (Manual) 0 % (0-2) 0 % (0-2) Band Neutrophils 0 % (0-8) 0 % (0-8) Platelet Estimate Adequate Adequate Platelet Morphology Normal Normal Red Blood Cell Morphology Normal Sodium Level 141 mEQ/L (135-145) Potassium Level 5.0 mEQ/L (3.4-4.9) H Chloride Level 98 mEQ/L (98-107) Carbon Dioxide Level 28 mEQ/L (20-30) Anion Gap 15 (5-15) Blood Urea Nitrogen 17 mg/dL (7-23) Creatinine 0.8 mg/dL (0.7-1.2) Estimat Glomerular Filtration Rate > 60 mL/min (>60) Glucose Level 123 mg/dL (74-106) H Calcium Level 9.5 mg/dL (8.6-10.2) Hypochromasia 1+ Anisocytosis 1+ Intake and Output 11/02/16 11/03/16 19:00 07:00 Intake Total 1020 ml 215 ml Output Total 350 ml 400 ml Balance 670 ml -185 ml Free Water 300 ml 150 ml Tube Feeding 720 ml 65 ml Output Urine Total 350 ml 400 ml # Bowel Movements 1 2 Objective General Appearance: moderate distress, thin EENT: PERRL/EOMI, normal ENT inspection Neck: non-tender, normal alignment, supple Cardiovascular: normal peripheral pulses, normal rate, regular rhythm, no gallop/murmur, no JVD Respiratory/Chest: Trach; Mech Vent; trach; respiratory distress, crackles/ rales, rhonchi - bilaterally, expiratory wheezing Abdomen: non tender, soft, no organomegaly, no mass, decreased bowel sounds Extremities: normal range of motion Skin: normal pigmentation, warm/dry Assessment/Plan Problem List: (1) Lung nodule (2) DVT (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 (3) Acute respiratory failure Assessment & Plan: S/P tracheostomy 10/03/16. Failed weaning trial. Cont vent per pulmonary (4) COPD exacerbation Assessment & Plan: Continue duoneb. Continue vent per pulmonary. (5) Pneumonia Assessment & Plan: Observe off antibiotics per ID (6) Leukocytosis Assessment & Plan: Worsening. Await CXR. Panculture. Start cefepime per ID (7) Dysphagia Assessment & Plan: See GI consult- S/P PEG 10/04/16. (8) Hypoglycemia Assessment & Plan: D50 prn; decrease insulin sliding scale. (9) Dysuria Assessment & Plan: D/C garcia cath. Status: deteriorating Assessment/Plan Discharge Planning: assisted acute care facility when bed available-see soc work note. TADEO VERDIN Nov 03, 2016 13:34
--- NOTE | 2016-11-03 14:46 | Pulmonology Progress Note ---
Assessment/Plan Assessment/Plan ASSESSMENT leukocytosis acute hypoxemic hypercapnic respiratory failure requiring intubation failure to wean s/p trach 10/03 dysphagia, G tube placement 10/04 acute COPD exacerbation emphysema possible PNA , s/p Rx Pulmonary nodules Chronic RLE DVT Tobacco abuse Hx HTN DM acute on chronic encephalopathy anemia elevated LFT -resolved PLAN OF CARE JORDAN vent , trach care Pulmonary toilet try to wean to trach collar if able leukocytosis today, afebrile UA, CXR ID follows started on cefepime s/p steroids, BS management with sensitive SS of insulin strict aspiration precautions, monitor GT feeding tolerance pain management bowel regimen monitor HH, anemia workup with low iron, stool OB positive, s/p Venofer GI follows GI recommended to repeat stool OB in 2-3- weeks PPI LFT stable currently, hepatitis panel negative abdominal US no dilated ducts awaiting for placement to subacute, transfer when placement arranged case discussed and evaluated by supervising physician Subjective Allergies: Coded Allergies: No Known Allergies (Unverified , 06/17/16) Subjective awake, denies congestion, chest pain, SOB [id number], repeated- 24 not feeling good today afebrile, tolerates GT feeding no signs of respiratory distress Objective Last 24 Hour Vital Signs Date Time Temp Pulse Resp B/P Pulse Ox O2 Delivery O2 Flow Rate FiO2 11/03/16 13:48 97.9 127 22 132/86 100 Mechanical Ventilator 30 11/03/16 13:45 98 19 99 Mechanical Ventilator 30 11/03/16 13:45 102 16 100 Mechanical Ventilator 30 11/03/16 13:20 108 23 30 11/03/16 12:01 100 11/03/16 12:00 30 11/03/16 11:00 109 17 30 11/03/16 09:30 101 16 100 Mechanical Ventilator 30 11/03/16 09:30 101 19 100 Mechanical Ventilator 30 11/03/16 09:20 96 17 30 11/03/16 08:00 30 11/03/16 07:00 102 17 30 11/03/16 05:45 105 16 100 Mechanical Ventilator 30 11/03/16 05:22 107 16 100 Mechanical Ventilator 30 11/03/16 05:18 109 16 30 11/03/16 04:00 128 11/03/16 04:00 30 11/03/16 04:00 98.0 127 24 90/68 100 Mechanical Ventilator 30 11/03/16 03:10 126 16 30 11/03/16 00:43 122 16 30 11/03/16 00:00 30 11/03/16 00:00 121 11/03/16 00:00 97.4 125 24 122/57 98 Mechanical Ventilator 30 11/02/16 23:11 117 24 100 Mechanical Ventilator 30 11/02/16 22:50 119 25 100 Mechanical Ventilator 30 11/02/16 22:49 117 25 30 11/02/16 20:50 122 24 30 11/02/16 20:00 97.0 123 24 97/68 99 Mechanical Ventilator 30 11/02/16 20:00 30 11/02/16 20:00 116 11/02/16 18:43 114 24 100 Mechanical Ventilator 30 11/02/16 18:39 116 25 30 11/02/16 16:45 103 27 30 11/02/16 16:00 97.9 104 17 98/75 100 Mechanical Ventilator 30 11/02/16 16:00 30 11/02/16 16:00 99 11/02/16 15:30 96 Intake and Output 11/02/16 11/03/16 19:00 07:00 Intake Total 1020 ml 215 ml Output Total 350 ml 400 ml Balance 670 ml -185 ml Free Water 300 ml 150 ml Tube Feeding 720 ml 65 ml Output Urine Total 350 ml 400 ml # Bowel Movements 1 2 Objective General Appearance: no apparent distress, vent AC 600-16-30% HEENT: normocephalic, atraumatic, anicteric Neck: trach, Shiley #8, secretions small , yellow, thin Respiratory/Chest: decreased breath sounds Cardiovascular/Chest: regular rate and rhythm, no JVD, occasionally ST Abdomen: normal bowel sounds, non tender, soft Extremities: normal capillary refill Neurologic: abnormal gait, awake, alert, responsive Musculoskeletal: normal muscle bulk Laboratory Tests 11/03/16 04:43: White Blood Count 26.3#*H, Red Blood Count 4.06L, Hemoglobin 11.8L, Hematocrit 36.4L, Mean Corpuscular Volume 90, Mean Corpuscular Hemoglobin 29.1, Mean Corpuscular Hemoglobin Concent 32.5, Red Cell Distribution Width 14.9H, Platelet Count 340, Mean Platelet Volume 6.6, Neutrophils (%) (Auto) , Lymphocytes (%) (Auto) , Monocytes (%) (Auto) , Eosinophils (%) (Auto) , Basophils (%) (Auto) , Differential Total Cells Counted 100, Neutrophils % ( Manual) 84H, Lymphocytes % (Manual) 9L, Monocytes % (Manual) 7, Eosinophils % ( Manual) 0, Basophils % (Manual) 0, Band Neutrophils 0, Platelet Estimate Adequate, Platelet Morphology Normal, Red Blood Cell Morphology Normal, Sodium Level 141, Potassium Level 5.0H, Chloride Level 98, Carbon Dioxide Level 28, Anion Gap 15, Blood Urea Nitrogen 17, Creatinine 0.8, Estimat Glomerular Filtration Rate > 60, Glucose Level 123H, Calcium Level 9.5 11/03/16 11:30: White Blood Count 24.9*H, Red Blood Count 3.82L, Hemoglobin 10.8L, Hematocrit 34.3L, Mean Corpuscular Volume 90, Mean Corpuscular Hemoglobin 28.3, Mean Corpuscular Hemoglobin Concent 31.4L, Red Cell Distribution Width 15.0H, Platelet Count 302, Mean Platelet Volume 6.6, Neutrophils (%) (Auto) , Lymphocytes (%) (Auto) , Monocytes (%) (Auto) , Eosinophils (%) (Auto) , Basophils (%) (Auto) , Differential Total Cells Counted 100, Neutrophils % ( Manual) 84H, Lymphocytes % (Manual) 4L, Monocytes % (Manual) 12H, Eosinophils % (Manual) 0, Basophils % (Manual) 0, Band Neutrophils 0, Platelet Estimate Adequate, Platelet Morphology Normal, Hypochromasia 1+, Anisocytosis 1+ Current Medications Medications (Trade) Dose Ordered Sig/Shraddha Route PRN Reason Start Time Stop Time Status Last Admin Dose Admin Acetaminophen (Tylenol) 650 mg Q4H PRN ORAL fever>100.5 11/02/16 17:00 12/02/16 16:59 Acetaminophen 650 mg 650 mg Q4H PRN GT headache 11/03/16 08:00 12/03/16 07:59 11/03/16 07:58 Albuterol/ Ipratropium (DuoNeb 0.5-3(2.5)mg/3ml) 3 ml Q4H PRN HHN Shortness of Breath 11/02/16 17:00 11/07/16 16:59 11/03/16 13:45 Cefepime HCl/ Dextrose (Maxipime/D5W) 55 ml @ 110 mls/hr Q12H IVPB 11/03/16 11:00 11/10/16 10:59 11/03/16 10:51 Dextrose (Dextrose 50%) STAT PRN IV Hypoglycemia 11/02/16 17:00 12/02/16 16:59 Insulin Aspart (NovoLOG) start when feeding started Q6HR SUBQ 11/02/16 18:00 12/02/16 17:59 11/03/16 11:58 Lansoprazole (Prevacid) 30 mg DAILY GT 10/31/16 09:00 11/30/16 08:59 11/03/16 08:03 Lorazepam (Ativan 2mg/ml 1ml) 0.5 mg Q4H PRN IV For Anxiety 11/03/16 07:45 11/10/16 07:44 Metoclopramide HCl (Reglan) 10 mg THREE TIMES A DAY GT 10/24/16 19:00 11/23/16 18:59 11/03/16 13:32 Ondansetron HCl (Zofran) 4 mg Q6H PRN IVP Nausea & Vomiting 11/02/16 17:00 12/02/16 16:59 Polyethylene Glycol (Miralax) 17 gm DAILYPRN PRN GT Constipation 10/25/16 01:00 11/24/16 00:59 11/03/16 00:00 Katia Sequeira NP ([facility]) Nov 03, 2016 14:46
[2016-11-03 18:06] LABS: APPEARANCE,URINE SLIGHTLY CLOUDY; KETONES,URINE NEGATIVE (NEGATIVE); LEUKOCYTE ESTERASE ,URINE 1+ (NEGATIVE); NITRITE,URINE NEGATIVE (NEGATIVE); PH,URINE 5 (4.5-8.0); PROTEIN,URINE 3+ (NEGATIVE); UROBILINOGEN,URINE 4 MG/DL (0.0-1.0)
[2016-11-03 18:16] LABS: AMORPHOUS SEDIMENT,UR MODERATE /LPF; BACTERIA,URINE MODERATE /HPF; SQUAMOUS EPITHELIAL CELL,UR OCCASIONAL /LPF (NONE/OCC)
[2016-11-03] MEDS: LORazepam Inj 2mg/ml 1ml IV PRN (19:44)
[2016-11-04 04:00] VITALS: BP 88/64
[2016-11-04 05:07] LABS: MEAN CORPUSCULAR HGB CONC 30.1 G/DL (32.0-36.0); MEAN CORPUSCULAR VOLUME 90 FL (80-99); MEAN PLATELET VOLUME 7.7 FL (6.5-10.1); PLATELET COUNT 226 K/UL (150-450); RED BLOOD COUNT 4.26 M/UL (4.70-6.10); RED CELL DISTRIBUTION WIDTH 15.2 % (11.6-14.8)
[2016-11-04 05:13] LABS: WHITE BLOOD COUNT 44.9 K/UL (4.8-10.8)
[2016-11-04 05:19] LABS: ANION GAP 15 (5-15); CALCIUM 9.4 mg/dL (8.6-10.2); CARBON DIOXIDE 25 mEQ/L (20-30); CHLORIDE 98 mEQ/L (98-107); CREATININE 0.8 mg/dL (0.7-1.2); GLOMERULAR FILTRATION RATE > 60 mL/min (>60); HEMOLYSIS 15; POTASSIUM 5.2 mEQ/L (3.4-4.9); SODIUM 138 mEQ/L (135-145)
[2016-11-04] MEDS: NovoLOG Insulin Flexpen SUBQ SCH ×3 (05:54→17:43)
[2016-11-04 08:00] VITALS: BP 90/58
[2016-11-04 09:47] LABS: BAND NEUTROPHILS % (MANUAL) 2 % (0-8); LYMPHOCYTES % (MANUAL) 7 % (20-45); NEUTROPHILS % (MANUAL) 82 % (45-75); TOTAL CELLS COUNTED 100
[2016-11-04 09:48] LABS: ANISOCYTOSIS 1+; BASOPHILS % (MANUAL) 0 % (0-2); EOSINOPHILS % (MANUAL) 0 % (0-3); HYPOCHROMASIA 1+; PLATELET ESTIMATE ADEQUATE; PLATELET MORPHOLOGY NORMAL
[2016-11-04] MEDS: Cefepime HCl 1 GM in D5W 55 ML IVPB SCH (10:41)
--- NOTE | 2016-11-04 11:25 | Internal Med Progress Note ---
Subjective Date of Service: November 04, 2016 Physician Name Tadeo Verdin Attending Physician Steve Rader MD Current Medications Medications (Trade) Dose Ordered Sig/Shraddha Route PRN Reason Start Time Stop Time Status Last Admin Dose Admin Acetaminophen (Tylenol) 650 mg Q4H PRN ORAL fever>100.5 11/02/16 17:00 12/02/16 16:59 Acetaminophen 650 mg 650 mg Q4H PRN GT headache 11/03/16 08:00 12/03/16 07:59 11/03/16 07:58 Albuterol/ Ipratropium (DuoNeb 0.5-3(2.5)mg/3ml) 3 ml Q4H PRN HHN Shortness of Breath 11/02/16 17:00 11/07/16 16:59 11/03/16 13:45 Cefepime HCl/ Dextrose (Maxipime/D5W) 55 ml @ 110 mls/hr Q12H IVPB 11/03/16 11:00 11/10/16 10:59 11/04/16 10:41 Dextrose (Dextrose 50%) STAT PRN IV Hypoglycemia 11/02/16 17:00 12/02/16 16:59 Insulin Aspart (NovoLOG) start when feeding started Q6HR SUBQ 11/02/16 18:00 12/02/16 17:59 11/03/16 18:10 Lansoprazole (Prevacid) 30 mg DAILY GT 10/31/16 09:00 11/30/16 08:59 11/03/16 08:03 Lorazepam (Ativan 2mg/ml 1ml) 0.5 mg Q4H PRN IV For Anxiety 11/03/16 07:45 11/10/16 07:44 11/03/16 19:44 Metoclopramide HCl (Reglan) 10 mg THREE TIMES A DAY GT 10/24/16 19:00 11/23/16 18:59 11/03/16 17:59 Ondansetron HCl (Zofran) 4 mg Q6H PRN IVP Nausea & Vomiting 11/02/16 17:00 12/02/16 16:59 Polyethylene Glycol (Miralax) 17 gm DAILYPRN PRN GT Constipation 10/25/16 01:00 11/24/16 00:59 11/03/16 00:00 Allergies: Coded Allergies: No Known Allergies (Unverified , 06/17/16) ROS Limited/Unobtainable: No Constitutional: Reports: chills, fever HEENT: Reports: no symptoms Cardiovascular: Reports: no symptoms Respiratory: Reports: no symptoms Gastrointestinal/Abdominal: Reports: no symptoms Genitourinary: Reports: no symptoms Subjective 66 YO M admitted with respiratory failure. JORDAN. Intubated with trach. Cover for Int [facility]-Dr Rader. Worsening leukocytosis and tachycardia Objective Last Vital Signs Date Time Temp Pulse Resp B/P Pulse Ox O2 Delivery O2 Flow Rate FiO2 11/04/16 08:42 122 16 30 11/04/16 04:00 98.5 88/64 100 11/03/16 16:00 Mechanical Ventilator 11/01/16 04:00 10.0 Laboratory Tests Test 11/03/16 11:30 11/03/16 17:40 11/04/16 03:50 White Blood Count 24.9 K/UL (4.8-10.8) *H 44.9 K/UL (4.8-10.8) #*H Red Blood Count 3.82 M/UL (4.70-6.10) L 4.26 M/UL (4.70-6.10) L Hemoglobin 10.8 G/DL (14.2-18.0) L 11.5 G/DL (14.2-18.0) L Hematocrit 34.3 % (42.0-52.0) L 38.2 % (42.0-52.0) L Mean Corpuscular Volume 90 FL (80-99) 90 FL (80-99) Mean Corpuscular Hemoglobin 28.3 PG (27.0-31.0) 27.0 PG (27.0-31.0) Mean Corpuscular Hemoglobin Concent 31.4 G/DL (32.0-36.0) L 30.1 G/DL (32.0-36.0) L Red Cell Distribution Width 15.0 % (11.6-14.8) H 15.2 % (11.6-14.8) H Platelet Count 302 K/UL (150-450) 226 K/UL (150-450) Mean Platelet Volume 6.6 FL (6.5-10.1) 7.7 FL (6.5-10.1) Neutrophils (%) (Auto) % (45.0-75.0) % (45.0-75.0) Lymphocytes (%) (Auto) % (20.0-45.0) % (20.0-45.0) Monocytes (%) (Auto) % (1.0-10.0) % (1.0-10.0) Eosinophils (%) (Auto) % (0.0-3.0) % (0.0-3.0) Basophils (%) (Auto) % (0.0-2.0) % (0.0-2.0) Differential Total Cells Counted 100 100 Neutrophils % (Manual) 84 % (45-75) H 82 % (45-75) H Lymphocytes % (Manual) 4 % (20-45) L 7 % (20-45) L Monocytes % (Manual) 12 % (1-10) H 9 % (1-10) Eosinophils % (Manual) 0 % (0-3) 0 % (0-3) Basophils % (Manual) 0 % (0-2) 0 % (0-2) Band Neutrophils 0 % (0-8) 2 % (0-8) Platelet Estimate Adequate Adequate Platelet Morphology Normal Normal Hypochromasia 1+ 1+ Anisocytosis 1+ 1+ Urine Color Brown Urine Appearance Slightly cloudy Urine pH 5 (4.5-8.0) Urine Specific [place] 1.020 (1.005-1.035) Urine Protein 3+ (NEGATIVE) H Urine Glucose (UA) Negative (NEGATIVE) Urine Ketones Negative (NEGATIVE) Urine Occult Blood 1+ (NEGATIVE) H Urine Nitrite Negative (NEGATIVE) Urine Bilirubin Negative (NEGATIVE) Urine Urobilinogen 4 MG/DL (0.0-1.0) H Urine Leukocyte Esterase 1+ (NEGATIVE) H Urine RBC 2-4 /HPF (0 - 0) H Urine WBC 5-10 /HPF (0 - 0) H Urine Squamous Epithelial Cells Occasional /LPF Urine Amorphous Sediment Moderate /LPF (NONE) H Urine Bacteria Moderate /HPF (NONE) H Sodium Level 138 mEQ/L (135-145) Potassium Level 5.2 mEQ/L (3.4-4.9) H Chloride Level 98 mEQ/L (98-107) Carbon Dioxide Level 25 mEQ/L (20-30) Anion Gap 15 (5-15) Blood Urea Nitrogen 23 mg/dL (7-23) Creatinine 0.8 mg/dL (0.7-1.2) Estimat Glomerular Filtration Rate > 60 mL/min (>60) Glucose Level 115 mg/dL (74-106) H Calcium Level 9.4 mg/dL (8.6-10.2) Microbiology Date/Time Source Procedure Growth Status 11/03/16 17:40 Urine,Clean Catch Urine Culture - Preliminary NO GROWTH Resulted Intake and Output 11/03/16 11/04/16 19:00 07:00 Intake Total 1020 ml 325 ml Output Total 250 ml 400 ml Balance 770 ml -75 ml Free Water 300 ml 150 ml IV Total 110 ml Tube Feeding 720 ml 65 ml Output Urine Total 250 ml 400 ml # Bowel Movements 2 2 Objective General Appearance: moderate distress, thin EENT: PERRL/EOMI, normal ENT inspection Neck: non-tender, normal alignment, supple Cardiovascular: normal peripheral pulses, normal rate, regular rhythm, no gallop/murmur, no JVD Respiratory/Chest: Trach; Mech Vent; trach; respiratory distress, crackles/ rales, rhonchi - bilaterally, expiratory wheezing Abdomen: non tender, soft, no organomegaly, no mass, decreased bowel sounds Extremities: normal range of motion Skin: normal pigmentation, warm/dry Assessment/Plan Problem List: (1) Lung nodule (2) DVT (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 (3) Acute respiratory failure Assessment & Plan: S/P tracheostomy 10/03/16. Failed weaning trial. Cont vent per pulmonary (4) COPD exacerbation Assessment & Plan: Continue duoneb. Continue vent per pulmonary. (5) Pneumonia Assessment & Plan: Restart cefepime per ID (6) Leukocytosis Assessment & Plan: Worsening. Await CXR. Panculture. Start cefepime per ID (7) Dysphagia Assessment & Plan: See GI consult- S/P PEG 10/04/16. (8) Hypoglycemia Assessment & Plan: D50 prn; decrease insulin sliding scale. (9) Dysuria Assessment & Plan: D/C garcia cath. (10) Severe sepsis Assessment & Plan: Restart cefepime per ID. Await culture results and chest xray. CT abdomen and pelvis (11) Hypotension Assessment & Plan: Transfer to ICU if pressors are needed. Status: deteriorating Assessment/Plan May require transfer to ICU due to hypotension. TADEO VERDIN November 04, 2016 11:25
--- NOTE | 2016-11-04 11:31 | Diagnostic Imaging Report ---
Indication: Shortness of breath Technique: One view of the chest Comparison: 10/21/2016 Findings: Interim development of opacities in the right suprahilar region. Atelectasis at the left lung base has developed. The remainder of the lungs and pleural spaces are clear. The lungs are hyperinflated. The heart size is normal. Tracheostomy is again demonstrated Impression: New since 10/21/2016 right suprahilar opacity, may reflect developing infiltrate. New left basilar atelectasis. Associated consolidation not completely excludable. Other stable findings as described
[2016-11-04 12:00] VITALS: BP 94/64
--- NOTE | 2016-11-04 12:22 | Infectious Diseases Prog Note ---
Assessment/Plan Assessment/Plan ASSESSMENT: 66 y/o male with: // COPD exacerbation - delayed SCx 4+ PSA SP Rx - CXR 09/27: Lungs are hyperinflated. No new infiltrates - negative: influenza // Leukocytosis - worsening // Hypotension due to sepsis // Abd pain ro intra-abd source . perf // Diarrhea x 1 resolved C Diff Neg // Febrile low grade , SP // HIV and Hep B/C : neg // - PEG 10/04 // Acute VDRF - intubated 09/20, 10/03 SP trach // Severe pulmonary HTN / grade I diastolic dysfunction / mod TR // Pulmonary nodules // Chronic RLE DVT // Tobacco abuse // [facility] resident // Negative MRSA, VRE screens // NKDA // Full Code PLAN: - start Merrem and Vanco d# 1 ( 10/17 SP Ceftazidime d# 14 ) ( 10/13 SP Jairon nebs d# 14 ) ( 10/11 SP Flagyl d# 10 ) ( 10/04 SP oral Vanco d# 3 ) ( 09/24 SP amikacin, invanz d# 5 / 5 ) ( 09/21 SP IV vancomycin d# 2 ) - taper steroids per pulm - monitor CBC, temperatures - monitor BMP - monitor CXR - vent support, wean as tolerated - Ct of Abd / P "P - transfer to ICU Subjective Allergies: Coded Allergies: No Known Allergies (Unverified , 06/17/16) Subjective abd pain Objective Vital Signs Last 24 Hour Vital Signs Date Time Temp Pulse Resp B/P Pulse Ox O2 Delivery O2 Flow Rate FiO2 11/04/16 11:37 117 16 30 11/04/16 08:42 122 16 30 11/04/16 08:09 126 11/04/16 08:04 127 16 30 11/04/16 08:00 98.4 113 20 90/58 100 Mechanical Ventilator 30 11/04/16 08:00 30 11/04/16 07:26 113 16 30 11/04/16 05:29 121 16 30 11/04/16 04:00 30 11/04/16 04:00 126 11/04/16 04:00 98.5 126 20 88/64 100 11/04/16 03:41 124 16 30 11/04/16 01:40 123 16 30 11/04/16 00:00 30 11/04/16 00:00 126 11/03/16 23:53 98.2 128 16 92/57 95 11/03/16 22:54 114 16 30 11/03/16 21:40 124 16 30 11/03/16 20:00 98.1 146 16 105/79 100 11/03/16 20:00 30 11/03/16 20:00 138 11/03/16 19:24 144 16 30 11/03/16 17:10 117 16 30 11/03/16 16:04 30 11/03/16 16:02 121 11/03/16 16:00 99.1 119 16 89/65 100 Mechanical Ventilator 30 11/03/16 14:50 140 22 30 11/03/16 13:48 97.9 127 22 132/86 100 Mechanical Ventilator 30 11/03/16 13:45 98 19 99 Mechanical Ventilator 30 11/03/16 13:45 102 16 100 Mechanical Ventilator 30 11/03/16 13:20 108 23 30 Height (Feet): 6 Height (Inches): 2.00 Weight (Pounds): 126 HEENT: anicteric Respiratory/Chest: normal breath sounds Cardiovascular: regular rhythm Abdomen: no organomegaly, tender - epigastric area Microbiology Date/Time Source Procedure Growth Status 11/03/16 17:40 Urine,Clean Catch Urine Culture - Preliminary NO GROWTH Resulted Laboratory Tests Test 11/03/16 17:40 11/04/16 03:50 Urine Color Brown Urine Appearance Slightly cloudy Urine pH 5 (4.5-8.0) Urine Specific [place] 1.020 (1.005-1.035) Urine Protein 3+ (NEGATIVE) H Urine Glucose (UA) Negative (NEGATIVE) Urine Ketones Negative (NEGATIVE) Urine Occult Blood 1+ (NEGATIVE) H Urine Nitrite Negative (NEGATIVE) Urine Bilirubin Negative (NEGATIVE) Urine Urobilinogen 4 MG/DL (0.0-1.0) H Urine Leukocyte Esterase 1+ (NEGATIVE) H Urine RBC 2-4 /HPF (0 - 0) H Urine WBC 5-10 /HPF (0 - 0) H Urine Squamous Epithelial Cells Occasional /LPF Urine Amorphous Sediment Moderate /LPF (NONE) H Urine Bacteria Moderate /HPF (NONE) H White Blood Count 44.9 K/UL (4.8-10.8) #*H Red Blood Count 4.26 M/UL (4.70-6.10) L Hemoglobin 11.5 G/DL (14.2-18.0) L Hematocrit 38.2 % (42.0-52.0) L Mean Corpuscular Volume 90 FL (80-99) Mean Corpuscular Hemoglobin 27.0 PG (27.0-31.0) Mean Corpuscular Hemoglobin Concent 30.1 G/DL (32.0-36.0) L Red Cell Distribution Width 15.2 % (11.6-14.8) H Platelet Count 226 K/UL (150-450) Mean Platelet Volume 7.7 FL (6.5-10.1) Neutrophils (%) (Auto) % (45.0-75.0) Lymphocytes (%) (Auto) % (20.0-45.0) Monocytes (%) (Auto) % (1.0-10.0) Eosinophils (%) (Auto) % (0.0-3.0) Basophils (%) (Auto) % (0.0-2.0) Differential Total Cells Counted 100 Neutrophils % (Manual) 82 % (45-75) H Lymphocytes % (Manual) 7 % (20-45) L Monocytes % (Manual) 9 % (1-10) Eosinophils % (Manual) 0 % (0-3) Basophils % (Manual) 0 % (0-2) Band Neutrophils 2 % (0-8) Platelet Estimate Adequate Platelet Morphology Normal Hypochromasia 1+ Anisocytosis 1+ Sodium Level 138 mEQ/L (135-145) Potassium Level 5.2 mEQ/L (3.4-4.9) H Chloride Level 98 mEQ/L (98-107) Carbon Dioxide Level 25 mEQ/L (20-30) Anion Gap 15 (5-15) Blood Urea Nitrogen 23 mg/dL (7-23) Creatinine 0.8 mg/dL (0.7-1.2) Estimat Glomerular Filtration Rate > 60 mL/min (>60) Glucose Level 115 mg/dL (74-106) H Calcium Level 9.4 mg/dL (8.6-10.2) Current Medications Medications (Trade) Dose Ordered Sig/Shraddha Route PRN Reason Start Time Stop Time Status Last Admin Dose Admin Acetaminophen (Tylenol) 650 mg Q4H PRN ORAL fever>100.5 11/02/16 17:00 12/02/16 16:59 Acetaminophen 650 mg 650 mg Q4H PRN GT headache 11/03/16 08:00 12/03/16 07:59 11/03/16 07:58 Albuterol/ Ipratropium (DuoNeb 0.5-3(2.5)mg/3ml) 3 ml Q4H PRN HHN Shortness of Breath 11/02/16 17:00 11/07/16 16:59 11/03/16 13:45 Cefepime HCl/ Dextrose (Maxipime/D5W) 55 ml @ 110 mls/hr Q12H IVPB 11/03/16 11:00 11/10/16 10:59 11/04/16 10:41 Dextrose (Dextrose 50%) STAT PRN IV Hypoglycemia 11/02/16 17:00 12/02/16 16:59 Insulin Aspart (NovoLOG) start when feeding started Q6HR SUBQ 11/02/16 18:00 12/02/16 17:59 11/03/16 18:10 Lansoprazole (Prevacid) 30 mg DAILY GT 10/31/16 09:00 11/30/16 08:59 11/03/16 08:03 Lorazepam (Ativan 2mg/ml 1ml) 0.5 mg Q4H PRN IV For Anxiety 11/03/16 07:45 11/10/16 07:44 11/03/16 19:44 Metoclopramide HCl (Reglan) 10 mg THREE TIMES A DAY GT 10/24/16 19:00 11/23/16 18:59 11/03/16 17:59 Ondansetron HCl (Zofran) 4 mg Q6H PRN IVP Nausea & Vomiting 11/02/16 17:00 12/02/16 16:59 Polyethylene Glycol (Miralax) 17 gm DAILYPRN PRN GT Constipation 10/25/16 01:00 11/24/16 00:59 11/03/16 00:00 KIMBERLEE HINKLE M.D. November 04, 2016 12:22
--- NOTE | 2016-11-04 12:44 | Pulmonology Progress Note ---
Assessment/Plan Problems: (1) Respiratory failure (2) COPD exacerbation (3) Emphysema of lung Assessment/Plan doing better titrate fio2 titrate vent setting watch cbb, bmp dvt prophylaxis dc planning continue the same all notes and meds reviewed Subjective ROS Limited/Unobtainable: No Constitutional: Reports: no symptoms HEENT: Repors: no symptoms Respiratory: Reports: no symptoms Cardiovascular: Reports: no symptoms Allergies: Coded Allergies: No Known Allergies (Unverified , 06/17/16) Objective Last 24 Hour Vital Signs Date Time Temp Pulse Resp B/P Pulse Ox O2 Delivery O2 Flow Rate FiO2 11/04/16 12:00 30 11/04/16 11:37 117 16 30 11/04/16 08:42 122 16 30 11/04/16 08:09 126 11/04/16 08:04 127 16 30 11/04/16 08:00 98.4 113 20 90/58 100 Mechanical Ventilator 30 11/04/16 08:00 30 11/04/16 07:26 113 16 30 11/04/16 05:29 121 16 30 11/04/16 04:00 30 11/04/16 04:00 126 11/04/16 04:00 98.5 126 20 88/64 100 11/04/16 03:41 124 16 30 11/04/16 01:40 123 16 30 11/04/16 00:00 30 11/04/16 00:00 126 11/03/16 23:53 98.2 128 16 92/57 95 11/03/16 22:54 114 16 30 11/03/16 21:40 124 16 30 11/03/16 20:00 98.1 146 16 105/79 100 11/03/16 20:00 30 11/03/16 20:00 138 11/03/16 19:24 144 16 30 11/03/16 17:10 117 16 30 11/03/16 16:04 30 11/03/16 16:02 121 11/03/16 16:00 99.1 119 16 89/65 100 Mechanical Ventilator 30 11/03/16 14:50 140 22 30 11/03/16 13:48 97.9 127 22 132/86 100 Mechanical Ventilator 30 11/03/16 13:45 98 19 99 Mechanical Ventilator 30 11/03/16 13:45 102 16 100 Mechanical Ventilator 30 11/03/16 13:20 108 23 30 Intake and Output 11/03/16 11/04/16 19:00 07:00 Intake Total 1020 ml 325 ml Output Total 250 ml 400 ml Balance 770 ml -75 ml Free Water 300 ml 150 ml IV Total 110 ml Tube Feeding 720 ml 65 ml Output Urine Total 250 ml 400 ml # Bowel Movements 2 2 Objective Status: awake HEENT: atraumatic, normocephalic Lungs: clear, decreased breath sounds Heart: HR/BP stable Abdomen: soft, non-tender Extremities: no C/C/E, edema Microbiology Date/Time Source Procedure Growth Status 11/03/16 17:40 Urine,Clean Catch Urine Culture - Preliminary NO GROWTH Resulted Laboratory Tests 11/03/16 17:40: Urine Color Brown, Urine Appearance Slightly cloudy, Urine pH 5, Urine Specific [place] 1.020, Urine Protein 3+H, Urine Glucose (UA) Negative, Urine Ketones Negative, Urine Occult Blood 1+H, Urine Nitrite Negative, Urine Bilirubin Negative, Urine Urobilinogen 4H, Urine Leukocyte Esterase 1+H, Urine RBC 2-4H, Urine WBC 5-10H, Urine Squamous Epithelial Cells Occasional, Urine Amorphous Sediment ModerateH, Urine Bacteria ModerateH 11/04/16 03:50: White Blood Count 44.9#*H, Red Blood Count 4.26L, Hemoglobin 11.5L, Hematocrit 38.2L, Mean Corpuscular Volume 90, Mean Corpuscular Hemoglobin 27.0, Mean Corpuscular Hemoglobin Concent 30.1L, Red Cell Distribution Width 15.2H, Platelet Count 226, Mean Platelet Volume 7.7, Neutrophils (%) (Auto) , Lymphocytes (%) (Auto) , Monocytes (%) (Auto) , Eosinophils (%) (Auto) , Basophils (%) (Auto) , Differential Total Cells Counted 100, Neutrophils % ( Manual) 82H, Lymphocytes % (Manual) 7L, Monocytes % (Manual) 9, Eosinophils % ( Manual) 0, Basophils % (Manual) 0, Band Neutrophils 2, Platelet Estimate Adequate, Platelet Morphology Normal, Hypochromasia 1+, Anisocytosis 1+, Sodium Level 138, Potassium Level 5.2H, Chloride Level 98, Carbon Dioxide Level 25, Anion Gap 15, Blood Urea Nitrogen 23, Creatinine 0.8, Estimat Glomerular Filtration Rate > 60, Glucose Level 115H, Calcium Level 9.4 Current Medications Medications (Trade) Dose Ordered Sig/Shraddha Route PRN Reason Start Time Stop Time Status Last Admin Dose Admin Acetaminophen (Tylenol) 650 mg Q4H PRN ORAL fever>100.5 11/02/16 17:00 12/02/16 16:59 Acetaminophen 650 mg 650 mg Q4H PRN GT headache 11/03/16 08:00 12/03/16 07:59 11/03/16 07:58 Albuterol/ Ipratropium (DuoNeb 0.5-3(2.5)mg/3ml) 3 ml Q4H PRN HHN Shortness of Breath 11/02/16 17:00 11/07/16 16:59 11/03/16 13:45 Dextrose (Dextrose 50%) STAT PRN IV Hypoglycemia 11/02/16 17:00 12/02/16 16:59 Insulin Aspart (NovoLOG) start when feeding started Q6HR SUBQ 11/02/16 18:00 12/02/16 17:59 11/03/16 18:10 Lansoprazole (Prevacid) 30 mg DAILY GT 10/31/16 09:00 11/30/16 08:59 11/03/16 08:03 Lorazepam (Ativan 2mg/ml 1ml) 0.5 mg Q4H PRN IV For Anxiety 11/03/16 07:45 11/10/16 07:44 11/03/16 19:44 Meropenem/Sodium Chloride (Merrem/Sodium Chloride) 110 ml @ 220 mls/hr Q8HR IVPB 11/04/16 14:00 11/09/16 13:59 Metoclopramide HCl (Reglan) 10 mg THREE TIMES A DAY GT 10/24/16 19:00 11/23/16 18:59 11/03/16 17:59 Ondansetron HCl (Zofran) 4 mg Q6H PRN IVP Nausea & Vomiting 11/02/16 17:00 12/02/16 16:59 Polyethylene Glycol (Miralax) 17 gm DAILYPRN PRN GT Constipation 10/25/16 01:00 11/24/16 00:59 11/03/16 00:00 Vancomycin HCl 1 ea 1 ea DAILY PRN MISC Per rx protocol 11/04/16 12:30 12/04/16 12:29 Vancomycin HCl/ Dextrose (Vancomycin/D5W) 275 ml @ 183.708 mls/hr Q12HR@0300,1500 IVPB 11/04/16 15:00 11/09/16 14:59 REN WRIGHT November 04, 2016 12:44
--- NOTE | 2016-11-04 14:54 | Cardiac Electrophysiology PN ---
Subjective Subjective [id number] Objective Last 24 Hour Vital Signs Date Time Temp Pulse Resp B/P Pulse Ox O2 Delivery O2 Flow Rate FiO2 11/04/16 12:00 30 11/04/16 11:37 117 16 30 11/04/16 08:42 122 16 30 11/04/16 08:09 126 11/04/16 08:04 127 16 30 11/04/16 08:00 98.4 113 20 90/58 100 Mechanical Ventilator 30 11/04/16 08:00 30 11/04/16 07:26 113 16 30 11/04/16 05:29 121 16 30 11/04/16 04:00 30 11/04/16 04:00 126 11/04/16 04:00 98.5 126 20 88/64 100 11/04/16 03:41 124 16 30 11/04/16 01:40 123 16 30 11/04/16 00:00 30 11/04/16 00:00 126 11/03/16 23:53 98.2 128 16 92/57 95 11/03/16 22:54 114 16 30 11/03/16 21:40 124 16 30 11/03/16 20:00 98.1 146 16 105/79 100 11/03/16 20:00 30 11/03/16 20:00 138 11/03/16 19:24 144 16 30 11/03/16 17:10 117 16 30 11/03/16 16:04 30 11/03/16 16:02 121 11/03/16 16:00 99.1 119 16 89/65 100 Mechanical Ventilator 30 Intake and Output 11/03/16 11/04/16 19:00 07:00 Intake Total 1020 ml 325 ml Output Total 250 ml 400 ml Balance 770 ml -75 ml Free Water 300 ml 150 ml IV Total 110 ml Tube Feeding 720 ml 65 ml Output Urine Total 250 ml 400 ml # Bowel Movements 2 2 Laboratory Tests Test 11/03/16 17:40 11/04/16 03:50 Urine Color Brown Urine Appearance Slightly cloudy Urine pH 5 (4.5-8.0) Urine Specific [place] 1.020 (1.005-1.035) Urine Protein 3+ (NEGATIVE) H Urine Glucose (UA) Negative (NEGATIVE) Urine Ketones Negative (NEGATIVE) Urine Occult Blood 1+ (NEGATIVE) H Urine Nitrite Negative (NEGATIVE) Urine Bilirubin Negative (NEGATIVE) Urine Urobilinogen 4 MG/DL (0.0-1.0) H Urine Leukocyte Esterase 1+ (NEGATIVE) H Urine RBC 2-4 /HPF (0 - 0) H Urine WBC 5-10 /HPF (0 - 0) H Urine Squamous Epithelial Cells Occasional /LPF Urine Amorphous Sediment Moderate /LPF (NONE) H Urine Bacteria Moderate /HPF (NONE) H White Blood Count 44.9 K/UL (4.8-10.8) #*H Red Blood Count 4.26 M/UL (4.70-6.10) L Hemoglobin 11.5 G/DL (14.2-18.0) L Hematocrit 38.2 % (42.0-52.0) L Mean Corpuscular Volume 90 FL (80-99) Mean Corpuscular Hemoglobin 27.0 PG (27.0-31.0) Mean Corpuscular Hemoglobin Concent 30.1 G/DL (32.0-36.0) L Red Cell Distribution Width 15.2 % (11.6-14.8) H Platelet Count 226 K/UL (150-450) Mean Platelet Volume 7.7 FL (6.5-10.1) Neutrophils (%) (Auto) % (45.0-75.0) Lymphocytes (%) (Auto) % (20.0-45.0) Monocytes (%) (Auto) % (1.0-10.0) Eosinophils (%) (Auto) % (0.0-3.0) Basophils (%) (Auto) % (0.0-2.0) Differential Total Cells Counted 100 Neutrophils % (Manual) 82 % (45-75) H Lymphocytes % (Manual) 7 % (20-45) L Monocytes % (Manual) 9 % (1-10) Eosinophils % (Manual) 0 % (0-3) Basophils % (Manual) 0 % (0-2) Band Neutrophils 2 % (0-8) Platelet Estimate Adequate Platelet Morphology Normal Hypochromasia 1+ Anisocytosis 1+ Sodium Level 138 mEQ/L (135-145) Potassium Level 5.2 mEQ/L (3.4-4.9) H Chloride Level 98 mEQ/L (98-107) Carbon Dioxide Level 25 mEQ/L (20-30) Anion Gap 15 (5-15) Blood Urea Nitrogen 23 mg/dL (7-23) Creatinine 0.8 mg/dL (0.7-1.2) Estimat Glomerular Filtration Rate > 60 mL/min (>60) Glucose Level 115 mg/dL (74-106) H Calcium Level 9.4 mg/dL (8.6-10.2) Microbiology Date/Time Source Procedure Growth Status 11/03/16 17:40 Urine,Clean Catch Urine Culture - Preliminary NO GROWTH Resulted [facility] November 04, 2016 14:54
[2016-11-04] MEDS: Meropenem 1 GM in NS 110 ML IVPB SCH ×2 (14:57→21:33)
--- NOTE | 2016-11-04 15:05 | Diagnostic Imaging Report ---
Clinical Indication: Abdominal pain, leukocytosis, respiratory failure Technique: Patient given enteric contrast IV administration nonionic contrast. Venous phase spiral acquisition obtained through the abdomen and pelvis. Multiplanar reconstructions were generated. Total dose length product 519 mGycm. CTDIvol(s) and mGy. Dose reduction achieved using automated exposure control Comparison: 06/20/2016 Findings: There is a large filling defect which appears to be on a stalk in the proximal ascending colon. This measures 4.4 cm transverse by 3 cm AP by 4.4 cm craniocaudad. A second similar lesion is seen in the hepatic flexure, measuring 12 mm diameter to immediately adjacent similar lesions are seen in the mid transverse colon, largest measuring 15 mm diameter. These are seen on images 36 through 40 of series 3. Another 14 mm diameter lesion is seen in the distal transverse colon, and there is a 13 mm lesion in the splenic flexure. There are probably some lesions within the sigmoid colon, although these are less clearly masslike and could just represent fecal debris. There is a small indirect left inguinal hernia which currently contains a knuckle of small bowel, previously only contained fluid. Previously demonstrated fluid is no longer evident. The appendix is not definitely identified, but there are no findings to suggest acute appendicitis. There is a gastrostomy tube in satisfactory position in the stomach. There is suggestion of irregular wall thickening of the gastric antrum. This could be an artifact of under distention, but appears somewhat focal.. Distal esophagus is unremarkable. No free intraperitoneal air. Trace free fluid is seen adjacent to the tip of the liver. This is less abundant than previously. The liver demonstrates diffusely heterogeneous contrast enhancement without focal lesion. The gallbladder remains mildly distended, but the previously demonstrated gallbladder wall edema is no longer evident. No gallstones are evident. Questionable small calcification versus small focus of vascular contrast is seen within the spleen. The pancreas, adrenals, kidneys are unremarkable. No mesenteric or retroperitoneal mass or adenopathy. No pelvic mass or adenopathy. Previously demonstrated Johnson catheter is no longer evident. There is some atelectasis and consolidation of the posterior right lung base. There is also small amount of pleural fluid present on the right. This is slightly more abundant than previously. The left lung base is clear except for the previously described hyperinflation. Bones are remarkable for degenerative spondylosis changes. Multiple cystic lesions in the acetabulum and left hip may be the result of degenerative change. These are also evident previously. There is a large right scrotal hydrocele. Impression: 4.4 x 3 x 4.4 cm filling defect within the proximal ascending colon. Appearance is that of a polyp on a stalk. Size of this lesion raises concern for malignancy. Multiple other polypoid lesions, by morphology likely villous polyps. Multiplicity raises concern for a polyposis syndrome Suggestion of focal irregular wall thickening of the gastric antrum. While possibly artifact of under distention, focality raises concern that this is a real lesion. Gastric endoscopy should be considered if clinically indicated Small indirect left inguinal hernia, currently contains a knuckle of small bowel, previously only contained fluid. No evidence of obstruction or strangulation Nonspecific heterogeneous hepatic contrast enhancement Trace ascites, decreased from previous exam Right pleural effusion, increased from the prior exam. Underlying basilar parenchymal consolidation or atelectasis Large right scrotal hydrocele Gastrostomy in satisfactory position Other findings as noted, including degenerative spondylosis, degenerative changes of the acetabulum and left hip, and a Johnson catheter removal, -- splenic granulomatous calcification, previously reported COPD changes. The CT scanner at [facility] is accredited by the [employer] and the scans are performed using protocols designed to limit radiation exposure to as low as reasonably achievable to attain images of sufficient resolution adequate for diagnostic evaluation.
[2016-11-04 16:00] VITALS: BP 138/81
[2016-11-04] MEDS: Vancomycin 750mg/D5W 275ml IVPB SCH ×2 (16:02)
[2016-11-04] MEDS: LORazepam Inj 2mg/ml 1ml IV PRN (20:41)
[2016-11-04 20:55] VITALS: BP 143/74
--- NOTE | 2016-11-04 22:38 | Consultation ---
DATE OF CONSULTATION: CARDIOLOGY CONSULTATION CONSULTING PHYSICIAN: Jose Knutson M.D. REFERRING PHYSICIAN: Steve Rader M.D. REASON FOR CONSULTATION: Tachycardia with heart rate up to 170s. HISTORY OF PRESENT ILLNESS: The patient is a 66-year-old gentleman with history of ventilator-dependant respiratory failure, status post tracheostomy, as well as history of dysphagia, who underwent a percutaneous endoscopic gastrostomy placement on this admission by Dr. May as well. The patient overnight was noted to be tachycardic with heart rate going up to 170s that looked like sinus tachycardia. A cardiology consultation was obtained for further evaluation and management. It is of note that the patient is alert and responsive and specifically denies any chest pain. REVIEW OF SYSTEMS: Negative other than what was mentioned in the history of present illness, however, it is very limited since the patient has tracheostomy. PAST MEDICAL HISTORY: Includes, 1. Hypertension. 2. Ventilator-dependant respiratory failure, status post tracheostomy. 3. Dysphagia, status post PEG placement. 4. Chronic obstructive pulmonary disease. FAMILY HISTORY: Noncontributory. PHYSICAL EXAMINATION: VITAL SIGNS: Blood pressure is 90/58, pulse is 117, that was up to 170, and respirations 16. HEAD AND NECK: Showed no jugular venous distention, status post tracheostomy. LUNGS: Coarse rhonchi bilaterally. CARDIOVASCULAR: Shows tachycardic S1 and S2 with no gallop or murmur. ABDOMEN: Soft. Status post G-tube. EXTREMITIES: No pitting edema. DIAGNOSTIC DATA: His echocardiogram showed ejection fraction of 55% to 60% from 09/21/2016 with biatrial enlargement and severe pulmonary hypertension with a PA pressure of 66. LABORATORY DATA: Labs show white count of 44.9, hemoglobin 11.5, hematocrit 38.1, and platelet count was 226,000. Sodium 138, potassium 5.2, BUN of 23, creatinine 0.2, and glucose of 115. INR is 1.3. Amikacin is 8.5. ASSESSMENT AND PLAN: 1. Tachycardia. This is sinus tachycardia likely due to this patient has sepsis. The white count jumped from 7.7 to 26 and then to 45 today. The patient is at risk of developing septic shock. The patient is on broad-spectrum intravenous antibiotics with vancomycin and meropenem. Also on blood pressure lowering agent. Obtain EKG and get cardiac enzymes. 2. Hypertension with pulmonary artery pressure of 66 due to severe chronic obstructive pulmonary disease. 3. Ventilator-dependant respiratory failure, status post tracheostomy. 4. Dysphagia, status post percutaneous endoscopic gastrostomy placement. 5. Sepsis, on broad-spectrum intravenous antibiotics. Thank very much, Dr. Rader, for allowing me to participate in the care of this patient. Please do not hesitate to contact me for any questions regarding my evaluation. Jose Knutson M.D. DR: RAZ JOB#: [id number] CC:
[2016-11-05] VITALS: BP 92/46
[2016-11-05] MEDS: NovoLOG Insulin Flexpen SUBQ SCH ×4 (00:01→17:45)
[2016-11-05] MEDS: Vancomycin 750mg/D5W 275ml IVPB SCH ×4 (02:32→15:20)
[2016-11-05 04:00] VITALS: BP 91/60
[2016-11-05] MEDS: Meropenem 1 GM in NS 110 ML IVPB SCH ×3 (05:11→22:04)
[2016-11-05 06:17] LABS: MEAN CORPUSCULAR HGB CONC 31.1 G/DL (32.0-36.0); MEAN CORPUSCULAR VOLUME 87 FL (80-99); MEAN PLATELET VOLUME 8.2 FL (6.5-10.1); PLATELET COUNT 281 K/UL (150-450); RED BLOOD COUNT 3.61 M/UL (4.70-6.10); RED CELL DISTRIBUTION WIDTH 14.9 % (11.6-14.8)
[2016-11-05 06:26] LABS: WHITE BLOOD COUNT 45.7 K/UL (4.8-10.8)
[2016-11-05 06:32] LABS: TROPONIN I < 0.30 ng/mL (<=0.30)
[2016-11-05 06:39] LABS: ANION GAP 13 (5-15); CALCIUM 8.9 mg/dL (8.6-10.2); CARBON DIOXIDE 27 mEQ/L (20-30); CHLORIDE 96 mEQ/L (98-107); CREATININE 0.7 mg/dL (0.7-1.2); GLOMERULAR FILTRATION RATE > 60 mL/min (>60); HEMOLYSIS 1; POTASSIUM 4.6 mEQ/L (3.4-4.9); SODIUM 136 mEQ/L (135-145)
[2016-11-05 08:00] VITALS: BP 92/59
[2016-11-05 08:43] LABS: BAND NEUTROPHILS % (MANUAL) 4 % (0-8); LYMPHOCYTES % (MANUAL) 2 % (20-45); NEUTROPHILS % (MANUAL) 88 % (45-75); TOTAL CELLS COUNTED 100
[2016-11-05 08:44] LABS: ANISOCYTOSIS 1+; BASOPHILS % (MANUAL) 0 % (0-2); EOSINOPHILS % (MANUAL) 0 % (0-3); HYPOCHROMASIA 2+; PLATELET ESTIMATE ADEQUATE; PLATELET MORPHOLOGY NORMAL
--- NOTE | 2016-11-05 10:42 | Infectious Diseases Prog Note ---
Assessment/Plan Assessment/Plan ASSESSMENT: 66 y/o male with: // COPD exacerbation - delayed SCx 4+ PSA SP Rx - CXR 09/27: Lungs are hyperinflated. No new infiltrates - negative: influenza // Leukocytosis - worsening // Hypotension due to sepsis // Abd pain ?etio - Ct of Abd : 4.4 x 3 x 4.4 cm filling defect within the proximal ascending colon.Appearance is that of a polyp on a stalk. Size of this lesion raises concern for malignancy. // Ro C Diff Neg vs Isch colitis // Febrile low grade , SP // HIV and Hep B/C : neg // - PEG 10/04 // Acute VDRF - intubated 09/20, 10/03 SP trach // Severe pulmonary HTN / grade I diastolic dysfunction / mod TR // Pulmonary nodules // Chronic RLE DVT // Tobacco abuse // [facility] resident // Negative MRSA, VRE screens // NKDA // Full Code PLAN: - start Merrem and Vanco d# 2 , add oral Vanco d# 1 ( 10/17 SP Ceftazidime d# 14 ) ( 10/13 SP Jairon nebs d# 14 ) ( 10/11 SP Flagyl d# 10 ) ( 10/04 SP oral Vanco d# 3 ) ( 09/24 SP amikacin, invanz d# 5 / 5 ) ( 09/21 SP IV vancomycin d# 2 ) - taper steroids per pulm - monitor CBC, temperatures - monitor BMP - monitor CXR - vent support, wean as tolerated - C Diff - lactic acid if elevated need Sx consult Subjective Allergies: Coded Allergies: No Known Allergies (Unverified , 06/17/16) Subjective increase leukocytes , abd pain Objective Vital Signs Last 24 Hour Vital Signs Date Time Temp Pulse Resp B/P Pulse Ox O2 Delivery O2 Flow Rate FiO2 11/05/16 08:00 124 11/05/16 08:00 99.0 123 16 92/59 100 Mechanical Ventilator 30 11/05/16 08:00 30 11/05/16 07:04 96 16 30 11/05/16 05:01 107 16 30 11/05/16 04:00 30 11/05/16 04:00 97.9 105 16 91/60 100 Mechanical Ventilator 30 11/05/16 03:31 93 11/05/16 02:42 94 16 30 11/05/16 00:46 105 16 30 11/05/16 00:04 30 11/05/16 00:00 97.9 95 16 92/46 100 Mechanical Ventilator 35 11/04/16 23:54 98 11/04/16 22:49 85 16 30 11/04/16 21:15 96.5 11/04/16 20:55 100.7 74 22 143/74 97 Mechanical Ventilator 35 11/04/16 20:35 127 16 30 11/04/16 20:00 30 11/04/16 20:00 117 11/04/16 18:57 113 16 30 11/04/16 17:17 146 16 30 11/04/16 16:00 30 11/04/16 16:00 97.9 114 20 138/81 100 Mechanical Ventilator 30 11/04/16 15:34 109 11/04/16 15:09 130 16 30 11/04/16 13:04 126 16 30 11/04/16 12:04 117 11/04/16 12:00 30 11/04/16 12:00 98.0 121 16 94/64 100 Mechanical Ventilator 30 11/04/16 11:37 117 16 30 Height (Feet): 6 Height (Inches): 2.00 Weight (Pounds): 126 HEENT: anicteric Respiratory/Chest: normal breath sounds Cardiovascular: regularly irregular Abdomen: no organomegaly Microbiology Date/Time Source Procedure Growth Status 11/03/16 17:40 Urine,Clean Catch Urine Culture - Preliminary Mixed Gram Positive Organism Resulted Laboratory Tests Test 11/05/16 05:45 White Blood Count 45.7 K/UL (4.8-10.8) *H Red Blood Count 3.61 M/UL (4.70-6.10) L Hemoglobin 9.7 G/DL (14.2-18.0) L Hematocrit 31.3 % (42.0-52.0) L Mean Corpuscular Volume 87 FL (80-99) Mean Corpuscular Hemoglobin 27.0 PG (27.0-31.0) Mean Corpuscular Hemoglobin Concent 31.1 G/DL (32.0-36.0) L Red Cell Distribution Width 14.9 % (11.6-14.8) H Platelet Count 281 K/UL (150-450) Mean Platelet Volume 8.2 FL (6.5-10.1) Neutrophils (%) (Auto) % (45.0-75.0) Lymphocytes (%) (Auto) % (20.0-45.0) Monocytes (%) (Auto) % (1.0-10.0) Eosinophils (%) (Auto) % (0.0-3.0) Basophils (%) (Auto) % (0.0-2.0) Differential Total Cells Counted 100 Neutrophils % (Manual) 88 % (45-75) H Lymphocytes % (Manual) 2 % (20-45) L Monocytes % (Manual) 6 % (1-10) Eosinophils % (Manual) 0 % (0-3) Basophils % (Manual) 0 % (0-2) Band Neutrophils 4 % (0-8) Platelet Estimate Adequate Platelet Morphology Normal Hypochromasia 2+ Anisocytosis 1+ Sodium Level 136 mEQ/L (135-145) Potassium Level 4.6 mEQ/L (3.4-4.9) Chloride Level 96 mEQ/L (98-107) L Carbon Dioxide Level 27 mEQ/L (20-30) Anion Gap 13 (5-15) Blood Urea Nitrogen 33 mg/dL (7-23) H Creatinine 0.7 mg/dL (0.7-1.2) Estimat Glomerular Filtration Rate > 60 mL/min (>60) Glucose Level 177 mg/dL (74-106) H Calcium Level 8.9 mg/dL (8.6-10.2) Troponin I < 0.30 ng/mL (<=0.30) Pro-B-Type Natriuretic Peptide 1412 pg/mL (0-125) H Current Medications Medications (Trade) Dose Ordered Sig/Shraddha Route PRN Reason Start Time Stop Time Status Last Admin Dose Admin Acetaminophen (Tylenol) 650 mg Q4H PRN ORAL fever>100.5 11/02/16 17:00 12/02/16 16:59 Acetaminophen 650 mg 650 mg Q4H PRN GT headache 11/03/16 08:00 12/03/16 07:59 11/03/16 07:58 Dextrose (Dextrose 50%) STAT PRN IV Hypoglycemia 11/02/16 17:00 12/02/16 16:59 Insulin Aspart (NovoLOG) start when feeding started Q6HR SUBQ 11/02/16 18:00 12/02/16 17:59 11/05/16 05:13 Lansoprazole (Prevacid) 30 mg DAILY GT 10/31/16 09:00 11/30/16 08:59 11/05/16 09:00 Levalbuterol HCl (Xopenex) 1.25 mg Q4H PRN HHN Bronchospasm 11/05/16 11:46 11/10/16 11:45 Lorazepam (Ativan 2mg/ml 1ml) 0.5 mg Q4H PRN IV For Anxiety 11/03/16 07:45 11/10/16 07:44 11/04/16 20:41 Meropenem/Sodium Chloride (Merrem/Sodium Chloride) 110 ml @ 220 mls/hr Q8HR IVPB 11/04/16 14:00 11/09/16 13:59 11/05/16 05:11 Metoclopramide HCl (Reglan) 10 mg THREE TIMES A DAY GT 10/24/16 19:00 11/23/16 18:59 11/05/16 09:00 Ondansetron HCl (Zofran) 4 mg Q6H PRN IVP Nausea & Vomiting 11/02/16 17:00 12/02/16 16:59 Polyethylene Glycol (Miralax) 17 gm DAILYPRN PRN GT Constipation 10/25/16 01:00 11/24/16 00:59 11/03/16 00:00 Vancomycin HCl 1 ea 1 ea DAILY PRN MISC Per rx protocol 11/04/16 12:30 12/04/16 12:29 Vancomycin HCl/ Dextrose (Vancomycin/D5W) 275 ml @ 183.708 mls/hr Q12HR@0300,1500 IVPB 11/04/16 15:00 11/09/16 14:59 11/05/16 02:32 KIMBERLEE HINKLE M.D. November 05, 2016 10:42
[2016-11-05 12:00] VITALS: BP 107/65
[2016-11-05] MEDS: Vancomycin oral 125mg/2.5ml ORAL SCH ×3 (12:45→22:04)
--- NOTE | 2016-11-05 13:04 | Pulmonology Progress Note ---
Assessment/Plan Problems: (1) Severe sepsis (2) Abdominal distention (3) Respiratory failure (4) COPD exacerbation (5) Emphysema of lung (6) Colonic mass Assessment/Plan adjust abx GI to see for colonic mass on CT abx as per ID f/u wbc cxr on 11/04 was negative Subjective ROS Limited/Unobtainable: No Constitutional: Reports: no symptoms HEENT: Repors: no symptoms Allergies: Coded Allergies: No Known Allergies (Unverified , 06/17/16) Objective Last 24 Hour Vital Signs Date Time Temp Pulse Resp B/P Pulse Ox O2 Delivery O2 Flow Rate FiO2 11/05/16 12:17 30 11/05/16 12:17 121 11/05/16 12:00 98.8 121 18 107/65 100 Mechanical Ventilator 30 11/05/16 10:56 123 16 30 11/05/16 08:36 124 16 30 11/05/16 08:00 124 11/05/16 08:00 99.0 123 16 92/59 100 Mechanical Ventilator 30 11/05/16 08:00 30 11/05/16 07:04 96 16 30 11/05/16 05:01 107 16 30 11/05/16 04:00 30 11/05/16 04:00 97.9 105 16 91/60 100 Mechanical Ventilator 30 11/05/16 03:31 93 11/05/16 02:42 94 16 30 11/05/16 00:46 105 16 30 11/05/16 00:04 30 11/05/16 00:00 97.9 95 16 92/46 100 Mechanical Ventilator 35 11/04/16 23:54 98 11/04/16 22:49 85 16 30 11/04/16 21:15 96.5 11/04/16 20:55 100.7 74 22 143/74 97 Mechanical Ventilator 35 11/04/16 20:35 127 16 30 11/04/16 20:00 30 11/04/16 20:00 117 11/04/16 18:57 113 16 30 11/04/16 17:17 146 16 30 11/04/16 16:00 30 11/04/16 16:00 97.9 114 20 138/81 100 Mechanical Ventilator 30 11/04/16 15:34 109 11/04/16 15:09 130 16 30 11/04/16 13:04 126 16 30 Intake and Output 11/04/16 11/05/16 18:59 06:59 Intake Total 335 ml 1245.000 ml Output Total 600 ml Balance -265 ml 1245.000 ml Free Water 200 ml 100 ml IV Total 495.000 ml Tube Feeding 135 ml 650 ml Output Urine Total 600 ml # Bowel Movements 3 3 Objective Status: awake HEENT: atraumatic, normocephalic Lungs: clear, decreased breath sounds Heart: HR/BP stable Abdomen: soft, non-tender Extremities: no C/C/E, edema Microbiology Date/Time Source Procedure Growth Status 11/03/16 17:40 Urine,Clean Catch Urine Culture - Preliminary Mixed Gram Positive Organism Resulted Laboratory Tests 11/05/16 05:45: White Blood Count 45.7*H, Red Blood Count 3.61L, Hemoglobin 9.7L, Hematocrit 31.3L, Mean Corpuscular Volume 87, Mean Corpuscular Hemoglobin 27.0, Mean Corpuscular Hemoglobin Concent 31.1L, Red Cell Distribution Width 14.9H, Platelet Count 281, Mean Platelet Volume 8.2, Neutrophils (%) (Auto) , Lymphocytes (%) (Auto) , Monocytes (%) (Auto) , Eosinophils (%) (Auto) , Basophils (%) (Auto) , Differential Total Cells Counted 100, Neutrophils % ( Manual) 88H, Lymphocytes % (Manual) 2L, Monocytes % (Manual) 6, Eosinophils % ( Manual) 0, Basophils % (Manual) 0, Band Neutrophils 4, Platelet Estimate Adequate, Platelet Morphology Normal, Hypochromasia 2+, Anisocytosis 1+, Sodium Level 136, Potassium Level 4.6, Chloride Level 96L, Carbon Dioxide Level 27, Anion Gap 13, Blood Urea Nitrogen 33H, Creatinine 0.7, Estimat Glomerular Filtration Rate > 60, Glucose Level 177H, Calcium Level 8.9, Troponin I < 0.30, Pro-B-Type Natriuretic Peptide 1412H Current Medications Medications (Trade) Dose Ordered Sig/Shraddha Route PRN Reason Start Time Stop Time Status Last Admin Dose Admin Acetaminophen (Tylenol) 650 mg Q4H PRN ORAL fever>100.5 11/02/16 17:00 12/02/16 16:59 Acetaminophen 650 mg 650 mg Q4H PRN GT headache 11/03/16 08:00 12/03/16 07:59 11/03/16 07:58 Dextrose (Dextrose 50%) STAT PRN IV Hypoglycemia 11/02/16 17:00 12/02/16 16:59 Insulin Aspart (NovoLOG) start when feeding started Q6HR SUBQ 11/02/16 18:00 12/02/16 17:59 11/05/16 12:01 Lansoprazole (Prevacid) 30 mg DAILY GT 10/31/16 09:00 11/30/16 08:59 11/05/16 09:00 Levalbuterol HCl (Xopenex) 1.25 mg Q4H PRN HHN Bronchospasm 11/05/16 11:46 11/10/16 11:45 Lorazepam (Ativan 2mg/ml 1ml) 0.5 mg Q4H PRN IV For Anxiety 11/03/16 07:45 11/10/16 07:44 11/04/16 20:41 Meropenem/Sodium Chloride (Merrem/Sodium Chloride) 110 ml @ 220 mls/hr Q8HR IVPB 11/04/16 14:00 11/09/16 13:59 11/05/16 05:11 Metoclopramide HCl (Reglan) 10 mg THREE TIMES A DAY GT 10/24/16 19:00 11/23/16 18:59 11/05/16 12:44 Ondansetron HCl (Zofran) 4 mg Q6H PRN IVP Nausea & Vomiting 11/02/16 17:00 12/02/16 16:59 Polyethylene Glycol (Miralax) 17 gm DAILYPRN PRN GT Constipation 10/25/16 01:00 11/24/16 00:59 11/03/16 00:00 Vancomycin HCl (Vancomycin) 125 mg FOUR TIMES A DAY ORAL 11/05/16 13:00 11/12/16 12:59 11/05/16 12:45 Vancomycin HCl 1 ea 1 ea DAILY PRN MISC Per rx protocol 11/04/16 12:30 12/04/16 12:29 Vancomycin HCl/ Dextrose (Vancomycin/D5W) 275 ml @ 183.708 mls/hr Q12HR@0300,1500 IVPB 11/04/16 15:00 11/09/16 14:59 11/05/16 02:32 REN WRIGHT November 05, 2016 13:04
[2016-11-05] MEDS: Levalbuterol Inh UD 1.25mg/0.5ml HHN PRN (13:49)
[2016-11-05] MEDS: LORazepam Inj 2mg/ml 1ml IV PRN (14:11)
--- NOTE | 2016-11-05 15:13 | General Progress Note ---
Assessment/Plan Assessment/Plan Assessment - Polyps seen on CT in unprepared colon --> need to verify after catharsis - COPD - respiratory failure - s/p trach and PEG - dysphagia - h/o OB (+) - Anemia Recommendations - Repeat CT after colonic lavage - hold feeds - elevate HOB - GT care - follow labs Subjective Allergies: Coded Allergies: No Known Allergies (Unverified , 06/17/16) Subjective ATSP for abnormal CT multiple colonic polypoid masses seen on CT patient without abdominal complaints has not had a colonoscopy Objective Last 24 Hour Vital Signs Date Time Temp Pulse Resp B/P Pulse Ox O2 Delivery O2 Flow Rate FiO2 11/05/16 13:12 113 16 30 11/05/16 12:17 30 11/05/16 12:17 121 11/05/16 12:00 98.8 121 18 107/65 100 Mechanical Ventilator 30 11/05/16 10:56 123 16 30 11/05/16 08:36 124 16 30 11/05/16 08:00 124 11/05/16 08:00 99.0 123 16 92/59 100 Mechanical Ventilator 30 11/05/16 08:00 30 11/05/16 07:04 96 16 30 11/05/16 05:01 107 16 30 11/05/16 04:00 30 11/05/16 04:00 97.9 105 16 91/60 100 Mechanical Ventilator 30 11/05/16 03:31 93 11/05/16 02:42 94 16 30 11/05/16 00:46 105 16 30 11/05/16 00:04 30 11/05/16 00:00 97.9 95 16 92/46 100 Mechanical Ventilator 35 11/04/16 23:54 98 11/04/16 22:49 85 16 30 11/04/16 21:15 96.5 11/04/16 20:55 100.7 74 22 143/74 97 Mechanical Ventilator 35 11/04/16 20:35 127 16 30 11/04/16 20:00 30 11/04/16 20:00 117 11/04/16 18:57 113 16 30 11/04/16 17:17 146 16 30 11/04/16 16:00 30 11/04/16 16:00 97.9 114 20 138/81 100 Mechanical Ventilator 30 11/04/16 15:34 109 5/1/17 15:09 130 16 30 Intake and Output 11/04/16 11/05/16 19:00 07:00 Intake Total 400 ml 1180.000 ml Output Total 600 ml Balance -200 ml 1180.000 ml Free Water 200 ml 100 ml IV Total 495.000 ml Tube Feeding 200 ml 585 ml Output Urine Total 600 ml # Bowel Movements 3 3 Laboratory Tests 11/05/16 05:45: White Blood Count 45.7*H, Red Blood Count 3.61L, Hemoglobin 9.7L, Hematocrit 31.3L, Mean Corpuscular Volume 87, Mean Corpuscular Hemoglobin 27.0, Mean Corpuscular Hemoglobin Concent 31.1L, Red Cell Distribution Width 14.9H, Platelet Count 281, Mean Platelet Volume 8.2, Neutrophils (%) (Auto) , Lymphocytes (%) (Auto) , Monocytes (%) (Auto) , Eosinophils (%) (Auto) , Basophils (%) (Auto) , Differential Total Cells Counted 100, Neutrophils % ( Manual) 88H, Lymphocytes % (Manual) 2L, Monocytes % (Manual) 6, Eosinophils % ( Manual) 0, Basophils % (Manual) 0, Band Neutrophils 4, Platelet Estimate Adequate, Platelet Morphology Normal, Hypochromasia 2+, Anisocytosis 1+, Sodium Level 136, Potassium Level 4.6, Chloride Level 96L, Carbon Dioxide Level 27, Anion Gap 13, Blood Urea Nitrogen 33H, Creatinine 0.7, Estimat Glomerular Filtration Rate > 60, Glucose Level 177H, Calcium Level 8.9, Troponin I < 0.30, Pro-B-Type Natriuretic Peptide 1412H 11/05/16 14:15: Lactic Acid Level [Pending] Height (Feet): 6 Height (Inches): 2.00 Weight (Pounds): 126 Objective Elderly AA man NCAT (+) trach Coarse BS RRR soft NT abdomen, (+) GT responsive ROSEMARY BURROUGHS November 05, 2016 15:13
--- NOTE | 2016-11-05 15:30 | Cardiac Electrophysiology PN ---
Assessment/Plan Assessment/Plan 1. Sinus tachycardia due to sepsis. The white count jumped from 7.7 to 26 and then to 45.The patient is at risk of developing septic shock. The patient is on broad-spectrum intravenous antibiotics with vancomycin and meropenem. 2. Severe pulmonary hypertension of 66 due to severe chronic obstructive pulmonary disease. 3. Ventilator-dependant respiratory failure, status post tracheostomy. 4. Dysphagia, status post percutaneous endoscopic gastrostomy placement. 5. Sepsis, on broad-spectrum intravenous antibiotics. 6. Chronic encephalopathy. KATHY RN Subjective Subjective No significant change. On Vent via tracheostomy. Non verbal. Objective Last 24 Hour Vital Signs Date Time Temp Pulse Resp B/P Pulse Ox O2 Delivery O2 Flow Rate FiO2 11/05/16 13:12 113 16 30 11/05/16 12:17 30 11/05/16 12:17 121 11/05/16 12:00 98.8 121 18 107/65 100 Mechanical Ventilator 30 11/05/16 10:56 123 16 30 11/05/16 08:36 124 16 30 11/05/16 08:00 124 11/05/16 08:00 99.0 123 16 92/59 100 Mechanical Ventilator 30 11/05/16 08:00 30 11/05/16 07:04 96 16 30 11/05/16 05:01 107 16 30 11/05/16 04:00 30 11/05/16 04:00 97.9 105 16 91/60 100 Mechanical Ventilator 30 11/05/16 03:31 93 11/05/16 02:42 94 16 30 11/05/16 00:46 105 16 30 11/05/16 00:04 30 11/05/16 00:00 97.9 95 16 92/46 100 Mechanical Ventilator 35 11/04/16 23:54 98 11/04/16 22:49 85 16 30 11/04/16 21:15 96.5 11/04/16 20:55 100.7 74 22 143/74 97 Mechanical Ventilator 35 11/04/16 20:35 127 16 30 11/04/16 20:00 30 11/04/16 20:00 117 11/04/16 18:57 113 16 30 11/04/16 17:17 146 16 30 11/04/16 16:00 30 11/04/16 16:00 97.9 114 20 138/81 100 Mechanical Ventilator 30 11/04/16 15:34 109 Intake and Output 11/04/16 11/05/16 19:00 07:00 Intake Total 400 ml 1180.000 ml Output Total 600 ml Balance -200 ml 1180.000 ml Free Water 200 ml 100 ml IV Total 495.000 ml Tube Feeding 200 ml 585 ml Output Urine Total 600 ml # Bowel Movements 3 3 Laboratory Tests Test 11/05/16 05:45 11/05/16 14:15 White Blood Count 45.7 K/UL (4.8-10.8) *H Red Blood Count 3.61 M/UL (4.70-6.10) L Hemoglobin 9.7 G/DL (14.2-18.0) L Hematocrit 31.3 % (42.0-52.0) L Mean Corpuscular Volume 87 FL (80-99) Mean Corpuscular Hemoglobin 27.0 PG (27.0-31.0) Mean Corpuscular Hemoglobin Concent 31.1 G/DL (32.0-36.0) L Red Cell Distribution Width 14.9 % (11.6-14.8) H Platelet Count 281 K/UL (150-450) Mean Platelet Volume 8.2 FL (6.5-10.1) Neutrophils (%) (Auto) % (45.0-75.0) Lymphocytes (%) (Auto) % (20.0-45.0) Monocytes (%) (Auto) % (1.0-10.0) Eosinophils (%) (Auto) % (0.0-3.0) Basophils (%) (Auto) % (0.0-2.0) Differential Total Cells Counted 100 Neutrophils % (Manual) 88 % (45-75) H Lymphocytes % (Manual) 2 % (20-45) L Monocytes % (Manual) 6 % (1-10) Eosinophils % (Manual) 0 % (0-3) Basophils % (Manual) 0 % (0-2) Band Neutrophils 4 % (0-8) Platelet Estimate Adequate Platelet Morphology Normal Hypochromasia 2+ Anisocytosis 1+ Sodium Level 136 mEQ/L (135-145) Potassium Level 4.6 mEQ/L (3.4-4.9) Chloride Level 96 mEQ/L (98-107) L Carbon Dioxide Level 27 mEQ/L (20-30) Anion Gap 13 (5-15) Blood Urea Nitrogen 33 mg/dL (7-23) H Creatinine 0.7 mg/dL (0.7-1.2) Estimat Glomerular Filtration Rate > 60 mL/min (>60) Glucose Level 177 mg/dL (74-106) H Calcium Level 8.9 mg/dL (8.6-10.2) Troponin I < 0.30 ng/mL (<=0.30) Pro-B-Type Natriuretic Peptide 1412 pg/mL (0-125) H Lactic Acid Level 1.70 mmol/L (0.66-2.22) Microbiology Date/Time Source Procedure Growth Status 11/03/16 17:40 Urine,Clean Catch Urine Culture - Preliminary Mixed Gram Positive Organism Resulted Objective HEAD AND NECK: Showed no jugular venous distention, status post tracheostomy. LUNGS: Coarse rhonchi bilaterally. CARDIOVASCULAR: Shows tachycardic S1 and S2 with no gallop or murmur. ABDOMEN: Soft. Status post G-tube. EXTREMITIES: No pitting edema. OSWALD HILLS November 05, 2016 15:30
[2016-11-05 16:00] VITALS: BP 89/63
[2016-11-05] MEDS: D5 1/2NS 1,000 ML IV SCH (16:58)
[2016-11-05] MEDS ORDERED: Nulytely 4L ORAL ONE (17:00)
[2016-11-05] MEDS ORDERED: Tubing IV Secondary IV ONE (17:02)
[2016-11-05] MEDS ORDERED: NS Irrig 1000ml ONE (17:02)
[2016-11-05] MEDS ORDERED: NS 275ml ONE (17:02)
--- NOTE | 2016-11-05 18:20 | Internal Med Progress Note ---
Subjective Date of Service: November 05, 2016 Physician Name VerdinTadeo Attending Physician Steve Rader MD Current Medications Medications (Trade) Dose Ordered Sig/Shraddha Route PRN Reason Start Time Stop Time Status Last Admin Dose Admin Acetaminophen (Tylenol) 650 mg Q4H PRN ORAL fever>100.5 11/02/16 17:00 12/02/16 16:59 Acetaminophen 650 mg 650 mg Q4H PRN GT headache 11/03/16 08:00 12/03/16 07:59 11/03/16 07:58 Dextrose (Dextrose 50%) STAT PRN IV Hypoglycemia 11/02/16 17:00 12/02/16 16:59 Dextrose/Sodium Chloride (D5 0.45% NS) 1,000 ml @ 75 mls/hr [id number] IV 11/05/16 16:00 12/05/16 15:59 11/05/16 16:58 Insulin Aspart (NovoLOG) start when feeding started Q6HR SUBQ 11/02/16 18:00 12/02/16 17:59 11/05/16 17:45 Lansoprazole (Prevacid) 30 mg DAILY GT 10/31/16 09:00 11/30/16 08:59 11/05/16 09:00 Levalbuterol HCl (Xopenex) 1.25 mg Q4H PRN HHN Bronchospasm 11/05/16 11:46 11/10/16 11:45 11/05/16 13:49 Lorazepam (Ativan 2mg/ml 1ml) 0.5 mg Q4H PRN IV For Anxiety 11/03/16 07:45 11/10/16 07:44 11/05/16 14:11 Meropenem/Sodium Chloride (Merrem/Sodium Chloride) 110 ml @ 220 mls/hr Q8HR IVPB 11/04/16 14:00 11/09/16 13:59 11/05/16 14:10 Metoclopramide HCl (Reglan) 10 mg THREE TIMES A DAY GT 10/24/16 19:00 11/23/16 18:59 11/05/16 17:46 Ondansetron HCl (Zofran) 4 mg Q6H PRN IVP Nausea & Vomiting 11/02/16 17:00 12/02/16 16:59 Polyethylene Glycol (Miralax) 17 gm DAILYPRN PRN GT Constipation 10/25/16 01:00 11/24/16 00:59 11/03/16 00:00 Vancomycin HCl 125 mg 125 mg FOUR TIMES A DAY ORAL 11/05/16 13:00 11/12/16 12:59 11/05/16 17:46 Vancomycin HCl 1 ea 1 ea DAILY PRN MISC Per rx protocol 11/04/16 12:30 12/04/16 12:29 Vancomycin HCl/ Dextrose (Vancomycin/D5W) 275 ml @ 183.708 mls/hr Q12HR@0300,1500 IVPB 11/04/16 15:00 11/09/16 14:59 11/05/16 15:20 Allergies: Coded Allergies: No Known Allergies (Unverified , 06/17/16) Subjective 66 YO M admitted with respiratory failure. JORDAN. Intubated with trach. Cover for Int Med-Dr Rader. Worsening leukocytosis and tachycardia. Now colon and gastric masses. Await GI consult. Objective Last Vital Signs Date Time Temp Pulse Resp B/P Pulse Ox O2 Delivery O2 Flow Rate FiO2 11/05/16 17:07 116 16 30 11/05/16 16:00 97.9 89/63 100 Mechanical Ventilator 11/01/16 04:00 10.0 Laboratory Tests Test 11/05/16 05:45 11/05/16 14:15 White Blood Count 45.7 K/UL (4.8-10.8) *H Red Blood Count 3.61 M/UL (4.70-6.10) L Hemoglobin 9.7 G/DL (14.2-18.0) L Hematocrit 31.3 % (42.0-52.0) L Mean Corpuscular Volume 87 FL (80-99) Mean Corpuscular Hemoglobin 27.0 PG (27.0-31.0) Mean Corpuscular Hemoglobin Concent 31.1 G/DL (32.0-36.0) L Red Cell Distribution Width 14.9 % (11.6-14.8) H Platelet Count 281 K/UL (150-450) Mean Platelet Volume 8.2 FL (6.5-10.1) Neutrophils (%) (Auto) % (45.0-75.0) Lymphocytes (%) (Auto) % (20.0-45.0) Monocytes (%) (Auto) % (1.0-10.0) Eosinophils (%) (Auto) % (0.0-3.0) Basophils (%) (Auto) % (0.0-2.0) Differential Total Cells Counted 100 Neutrophils % (Manual) 88 % (45-75) H Lymphocytes % (Manual) 2 % (20-45) L Monocytes % (Manual) 6 % (1-10) Eosinophils % (Manual) 0 % (0-3) Basophils % (Manual) 0 % (0-2) Band Neutrophils 4 % (0-8) Platelet Estimate Adequate Platelet Morphology Normal Hypochromasia 2+ Anisocytosis 1+ Sodium Level 136 mEQ/L (135-145) Potassium Level 4.6 mEQ/L (3.4-4.9) Chloride Level 96 mEQ/L (98-107) L Carbon Dioxide Level 27 mEQ/L (20-30) Anion Gap 13 (5-15) Blood Urea Nitrogen 33 mg/dL (7-23) H Creatinine 0.7 mg/dL (0.7-1.2) Estimat Glomerular Filtration Rate > 60 mL/min (>60) Glucose Level 177 mg/dL (74-106) H Calcium Level 8.9 mg/dL (8.6-10.2) Troponin I < 0.30 ng/mL (<=0.30) Pro-B-Type Natriuretic Peptide 1412 pg/mL (0-125) H Lactic Acid Level 1.70 mmol/L (0.66-2.22) Microbiology Date/Time Source Procedure Growth Status 11/03/16 17:40 Urine,Clean Catch Urine Culture - Preliminary Mixed Gram Positive Organism Resulted Intake and Output 11/04/16 11/05/16 19:00 07:00 Intake Total 400 ml 1180.000 ml Output Total 600 ml Balance -200 ml 1180.000 ml Free Water 200 ml 100 ml IV Total 495.000 ml Tube Feeding 200 ml 585 ml Output Urine Total 600 ml # Bowel Movements 3 3 Objective General Appearance: moderate distress, thin EENT: PERRL/EOMI, normal ENT inspection Neck: non-tender, normal alignment, supple Cardiovascular: normal peripheral pulses, normal rate, regular rhythm, no gallop/murmur, no JVD Respiratory/Chest: Trach; Mech Vent; trach; respiratory distress, crackles/ rales, rhonchi - bilaterally, expiratory wheezing Abdomen: non tender, soft, no organomegaly, no mass, decreased bowel sounds Extremities: normal range of motion Skin: normal pigmentation, warm/dry Assessment/Plan Problem List: (1) Lung nodule (2) DVT (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 (3) Acute respiratory failure Assessment & Plan: S/P tracheostomy 10/03/16. Failed weaning trial. Cont vent per pulmonary (4) COPD exacerbation Assessment & Plan: Continue duoneb. Continue vent per pulmonary. (5) Pneumonia Assessment & Plan: New left basilar consolidation. Restart cefepime per ID (6) Leukocytosis Assessment & Plan: Worsening. Await Culture results. Start cefepime per ID (7) Dysphagia Assessment & Plan: See GI consult- S/P PEG 10/04/16. (8) Hypoglycemia Assessment & Plan: D50 prn; decrease insulin sliding scale. (9) Dysuria Assessment & Plan: D/C garcia cath. (10) Severe sepsis Assessment & Plan: Restart cefepime per ID. Await culture results and chest xray. CT abdomen and pelvis (11) Hypotension Assessment & Plan: Transfer to ICU if pressors are needed. (12) Gastric mass (13) Mass of colon Assessment & Plan: await GI consult. Status: deteriorating TADEO VERDIN November 05, 2016 18:19
[2016-11-05 20:00] VITALS: BP 106/56
[2016-11-06] MEDS: NovoLOG Insulin Flexpen SUBQ SCH ×5 (00:15→23:44)
[2016-11-06 00:27] VITALS: BP 110/60
[2016-11-06] MEDS: Levalbuterol Inh UD 1.25mg/0.5ml HHN PRN ×4 (01:28→23:17)
[2016-11-06 02:16] LABS: MEAN CORPUSCULAR HEMOGLOBIN 27.3 PG (27.0-31.0); MEAN CORPUSCULAR HGB CONC 30.9 G/DL (32.0-36.0); MEAN CORPUSCULAR VOLUME 89 FL (80-99); MEAN PLATELET VOLUME 7.1 FL (6.5-10.1); PLATELET COUNT 195 K/UL (150-450); RED BLOOD COUNT 3.61 M/UL (4.70-6.10); RED CELL DISTRIBUTION WIDTH 14.7 % (11.6-14.8)
[2016-11-06 02:47] LABS: ANION GAP 14 (5-15); CALCIUM 8.8 mg/dL (8.6-10.2); CARBON DIOXIDE 25 mEQ/L (20-30); CHLORIDE 95 mEQ/L (98-107); CREATININE 0.6 mg/dL (0.7-1.2); GLOMERULAR FILTRATION RATE > 60 mL/min (>60); HEMOLYSIS 10; POTASSIUM 4.6 mEQ/L (3.4-4.9); SODIUM 134 mEQ/L (135-145)
[2016-11-06] MEDS: Vancomycin 750mg/D5W 275ml IVPB SCH ×2 (03:28)
[2016-11-06 04:00] VITALS: BP 98/73
[2016-11-06 04:10] LABS: WHITE BLOOD COUNT 37.7 K/UL (4.8-10.8)
[2016-11-06] MEDS: Meropenem 1 GM in NS 110 ML IVPB SCH ×3 (05:31→21:12)
[2016-11-06] MEDS: D5 1/2NS 1,000 ML IV SCH ×2 (07:13→18:41)
[2016-11-06 08:00] VITALS: BP 89/67
[2016-11-06 08:19] LABS: ANISOCYTOSIS 1+; BAND NEUTROPHILS % (MANUAL) 0 % (0-8); BASOPHILS % (MANUAL) 0 % (0-2); EOSINOPHILS % (MANUAL) 0 % (0-3); HYPOCHROMASIA 1+; LYMPHOCYTES % (MANUAL) 7 % (20-45); NEUTROPHILS % (MANUAL) 83 % (45-75); PLATELET ESTIMATE ADEQUATE; PLATELET MORPHOLOGY NORMAL; TOTAL CELLS COUNTED 100
[2016-11-06] MEDS: Vancomycin oral 125mg/2.5ml ORAL SCH ×4 (09:00→21:05)
[2016-11-06] MEDS ORDERED: Vancomycin 1.25 GM in D5W 275 ML IVPB ONE (11:00)
--- NOTE | 2016-11-06 11:45 | Pulmonology Progress Note ---
Assessment/Plan Problems: (1) Severe sepsis (2) Abdominal distention (3) Respiratory failure (4) COPD exacerbation (5) Emphysema of lung (6) Colonic mass Assessment/Plan adjust abx GI to see for colonic mass on CT abx as per ID f/u wbc cxr on 11/04 was negative start Merrem and Vanco d# 3 , add oral Vanco d# 2 Subjective ROS Limited/Unobtainable: No Interval Events: no change Allergies: Coded Allergies: No Known Allergies (Unverified , 06/17/16) Objective Last 24 Hour Vital Signs Date Time Temp Pulse Resp B/P Pulse Ox O2 Delivery O2 Flow Rate FiO2 11/06/16 11:38 98 11/06/16 11:38 30 11/06/16 10:35 101 21 99 Mechanical Ventilator 10.0 30 11/06/16 10:35 99 22 30 11/06/16 10:34 30 11/06/16 10:34 98 17 98 Mechanical Ventilator 10.0 30 11/06/16 09:06 100 20 30 11/06/16 08:00 97.5 104 17 89/67 100 Mechanical Ventilator 11/06/16 08:00 30 11/06/16 08:00 106 11/06/16 07:30 98 16 30 11/06/16 05:11 113 16 30 11/06/16 04:00 98.3 118 18 98/73 100 Mechanical Ventilator 11/06/16 04:00 30 11/06/16 04:00 107 11/06/16 03:07 107 16 30 11/06/16 01:30 122 16 98 Mechanical Ventilator 30 11/06/16 01:29 117 16 96 Mechanical Ventilator 30 11/06/16 01:06 111 16 30 11/06/16 00:27 98.6 119 18 110/60 100 Mechanical Ventilator 11/06/16 00:00 30 11/06/16 00:00 115 11/05/16 22:57 115 16 30 11/05/16 21:09 118 16 30 11/05/16 20:00 124 11/05/16 20:00 98.7 120 19 106/56 100 Mechanical Ventilator 11/05/16 20:00 30 11/05/16 19:40 119 17 30 11/05/16 19:35 83 22 30 11/05/16 17:07 116 16 30 11/05/16 16:50 121 5/2/17 16:16 30 11/05/16 16:00 97.9 116 16 89/63 100 Mechanical Ventilator 30 11/05/16 15:08 124 16 30 11/05/16 13:12 113 16 30 11/05/16 12:17 30 11/05/16 12:17 121 11/05/16 12:00 98.8 121 18 107/65 100 Mechanical Ventilator 30 Intake and Output 11/05/16 11/06/16 19:00 07:00 Intake Total 1198.708 ml 825 ml Output Total 800 ml 600 ml Balance 398.708 ml 225 ml Free Water 300 ml IV Total 443.708 ml 825 ml Tube Feeding 455 ml Output Urine Total 800 ml 600 ml # Voids 1 # Bowel Movements 1 Objective Status: awake HEENT: atraumatic, normocephalic Lungs: clear, decreased breath sounds Heart: HR/BP stable Abdomen: soft, non-tender Extremities: no C/C/E, edema Microbiology Date/Time Source Procedure Growth Status 11/06/16 05:55 Stool Clostridium difficile Toxin Assay - Final Complete 11/03/16 17:40 Urine,Clean Catch Urine Culture - Final Mixed Gram Positive Organism Complete Laboratory Tests 11/05/16 14:15: Lactic Acid Level 1.70 11/06/16 01:40: White Blood Count 37.7*H, Red Blood Count 3.61L, Hemoglobin 9.9L, Hematocrit 32.0L, Mean Corpuscular Volume 89, Mean Corpuscular Hemoglobin 27.3, Mean Corpuscular Hemoglobin Concent 30.9L, Red Cell Distribution Width 14.7, Platelet Count 195, Mean Platelet Volume 7.1, Neutrophils (%) (Auto) , Lymphocytes (%) (Auto) , Monocytes (%) (Auto) , Eosinophils (%) (Auto) , Basophils (%) (Auto) , Differential Total Cells Counted 100, Neutrophils % ( Manual) 83H, Lymphocytes % (Manual) 7L, Monocytes % (Manual) 10, Eosinophils % ( Manual) 0, Basophils % (Manual) 0, Band Neutrophils 0, Platelet Estimate Adequate, Platelet Morphology Normal, Hypochromasia 1+, Anisocytosis 1+, Sodium Level 134L, Potassium Level 4.6, Chloride Level 95L, Carbon Dioxide Level 25, Anion Gap 14, Blood Urea Nitrogen 23, Creatinine 0.6L, Estimat Glomerular Filtration Rate > 60, Glucose Level 125H, Calcium Level 8.8, Vancomycin Level Trough 11.2 Current Medications Medications (Trade) Dose Ordered Sig/Shraddha Route PRN Reason Start Time Stop Time Status Last Admin Dose Admin Acetaminophen (Tylenol) 650 mg Q4H PRN ORAL fever>100.5 11/02/16 17:00 12/02/16 16:59 Acetaminophen 650 mg 650 mg Q4H PRN GT headache 11/03/16 08:00 12/03/16 07:59 11/03/16 07:58 Dextrose (Dextrose 50%) STAT PRN IV Hypoglycemia 11/02/16 17:00 12/02/16 16:59 Dextrose/Sodium Chloride 1,000 ml @ 75 mls/hr [id number] IV 11/05/16 16:00 12/05/16 15:59 11/06/16 07:13 Insulin Aspart (NovoLOG) start when feeding started Q6HR SUBQ 11/02/16 18:00 12/02/16 17:59 11/06/16 06:21 Lansoprazole (Prevacid) 30 mg DAILY GT 10/31/16 09:00 11/30/16 08:59 11/06/16 09:52 Levalbuterol HCl (Xopenex) 1.25 mg Q4H PRN HHN Bronchospasm 11/05/16 11:46 11/10/16 11:45 11/06/16 10:33 Lorazepam (Ativan 2mg/ml 1ml) 0.5 mg Q4H PRN IV For Anxiety 11/03/16 07:45 11/10/16 07:44 11/05/16 14:11 Meropenem/Sodium Chloride (Merrem/Sodium Chloride) 110 ml @ 220 mls/hr Q8HR IVPB 11/04/16 14:00 11/09/16 13:59 11/06/16 05:31 Metoclopramide HCl (Reglan) 10 mg THREE TIMES A DAY GT 10/24/16 19:00 11/23/16 18:59 11/06/16 09:52 Ondansetron HCl (Zofran) 4 mg Q6H PRN IVP Nausea & Vomiting 11/02/16 17:00 12/02/16 16:59 Polyethylene Glycol (Miralax) 17 gm DAILYPRN PRN GT Constipation 10/25/16 01:00 11/24/16 00:59 11/03/16 00:00 Vancomycin HCl (Vanco rx to dose) 1 ea DAILY PRN MISC Per rx protocol 11/04/16 12:30 12/04/16 12:29 Vancomycin HCl 1.25 gm/Dextrose 275 ml @ 183.708 mls/hr ONCE ONCE IVPB 11/06/16 11:00 11/06/16 12:29 Vancomycin HCl 125 mg 125 mg FOUR TIMES A DAY ORAL 11/05/16 13:00 11/12/16 12:59 11/06/16 09:00 Vancomycin HCl/ Dextrose (Vancomycin/D5W) 275 ml @ 183.708 mls/hr Q12HR@1100,2300 IVPB 11/06/16 23:00 11/11/16 22:59 REN WRIGHT November 06, 2016 11:45
--- NOTE | 2016-11-06 11:47 | Internal Med Progress Note ---
Subjective Date of Service: November 06, 2016 Physician Name Verdin,Tadeo Attending Physician Steve Rader MD Current Medications Medications (Trade) Dose Ordered Sig/Shraddha Route PRN Reason Start Time Stop Time Status Last Admin Dose Admin Acetaminophen (Tylenol) 650 mg Q4H PRN ORAL fever>100.5 11/02/16 17:00 12/02/16 16:59 Acetaminophen 650 mg 650 mg Q4H PRN GT headache 11/03/16 08:00 12/03/16 07:59 11/03/16 07:58 Dextrose (Dextrose 50%) STAT PRN IV Hypoglycemia 11/02/16 17:00 12/02/16 16:59 Dextrose/Sodium Chloride 1,000 ml @ 75 mls/hr [id number] IV 11/05/16 16:00 12/05/16 15:59 11/06/16 07:13 Insulin Aspart (NovoLOG) start when feeding started Q6HR SUBQ 11/02/16 18:00 12/02/16 17:59 11/06/16 06:21 Lansoprazole (Prevacid) 30 mg DAILY GT 10/31/16 09:00 11/30/16 08:59 11/06/16 09:52 Levalbuterol HCl (Xopenex) 1.25 mg Q4H PRN HHN Bronchospasm 11/05/16 11:46 11/10/16 11:45 11/06/16 10:33 Lorazepam (Ativan 2mg/ml 1ml) 0.5 mg Q4H PRN IV For Anxiety 11/03/16 07:45 11/10/16 07:44 11/05/16 14:11 Meropenem/Sodium Chloride (Merrem/Sodium Chloride) 110 ml @ 220 mls/hr Q8HR IVPB 11/04/16 14:00 11/09/16 13:59 11/06/16 05:31 Metoclopramide HCl (Reglan) 10 mg THREE TIMES A DAY GT 10/24/16 19:00 11/23/16 18:59 11/06/16 09:52 Ondansetron HCl (Zofran) 4 mg Q6H PRN IVP Nausea & Vomiting 11/02/16 17:00 12/02/16 16:59 Polyethylene Glycol (Miralax) 17 gm DAILYPRN PRN GT Constipation 10/25/16 01:00 11/24/16 00:59 11/03/16 00:00 Vancomycin HCl (Vanco rx to dose) 1 ea DAILY PRN MISC Per rx protocol 11/04/16 12:30 12/04/16 12:29 Vancomycin HCl 1.25 gm/Dextrose 275 ml @ 183.708 mls/hr ONCE ONCE IVPB 11/06/16 11:00 11/06/16 12:29 Vancomycin HCl 125 mg 125 mg FOUR TIMES A DAY ORAL 11/05/16 13:00 11/12/16 12:59 11/06/16 09:00 Vancomycin HCl/ Dextrose (Vancomycin/D5W) 275 ml @ 183.708 mls/hr Q12HR@1100,2300 IVPB 11/06/16 23:00 11/11/16 22:59 Allergies: Coded Allergies: No Known Allergies (Unverified , 06/17/16) ROS Limited/Unobtainable: No Constitutional: Reports: chills, fever HEENT: Reports: no symptoms Cardiovascular: Reports: no symptoms Respiratory: Reports: no symptoms Gastrointestinal/Abdominal: Reports: abdominal pain Genitourinary: Reports: no symptoms Neurologic/Psychiatric: Reports: no symptoms Subjective 66 YO M admitted with respiratory failure. JORDAN. Intubated with trach. Cover for Int Med-Dr Rader. Improving leukocytosis and tachycardia. Now colon and gastric masses. Await Repeat CT abd and pelvis. Objective Last Vital Signs Date Time Temp Pulse Resp B/P Pulse Ox O2 Delivery O2 Flow Rate FiO2 11/06/16 10:35 101 21 99 Mechanical Ventilator 10.0 30 11/06/16 08:00 97.5 89/67 Laboratory Tests Test 11/05/16 14:15 11/06/16 01:40 Lactic Acid Level 1.70 mmol/L (0.66-2.22) White Blood Count 37.7 K/UL (4.8-10.8) *H Red Blood Count 3.61 M/UL (4.70-6.10) L Hemoglobin 9.9 G/DL (14.2-18.0) L Hematocrit 32.0 % (42.0-52.0) L Mean Corpuscular Volume 89 FL (80-99) Mean Corpuscular Hemoglobin 27.3 PG (27.0-31.0) Mean Corpuscular Hemoglobin Concent 30.9 G/DL (32.0-36.0) L Red Cell Distribution Width 14.7 % (11.6-14.8) Platelet Count 195 K/UL (150-450) Mean Platelet Volume 7.1 FL (6.5-10.1) Neutrophils (%) (Auto) % (45.0-75.0) Lymphocytes (%) (Auto) % (20.0-45.0) Monocytes (%) (Auto) % (1.0-10.0) Eosinophils (%) (Auto) % (0.0-3.0) Basophils (%) (Auto) % (0.0-2.0) Differential Total Cells Counted 100 Neutrophils % (Manual) 83 % (45-75) H Lymphocytes % (Manual) 7 % (20-45) L Monocytes % (Manual) 10 % (1-10) Eosinophils % (Manual) 0 % (0-3) Basophils % (Manual) 0 % (0-2) Band Neutrophils 0 % (0-8) Platelet Estimate Adequate Platelet Morphology Normal Hypochromasia 1+ Anisocytosis 1+ Sodium Level 134 mEQ/L (135-145) L Potassium Level 4.6 mEQ/L (3.4-4.9) Chloride Level 95 mEQ/L (98-107) L Carbon Dioxide Level 25 mEQ/L (20-30) Anion Gap 14 (5-15) Blood Urea Nitrogen 23 mg/dL (7-23) Creatinine 0.6 mg/dL (0.7-1.2) L Estimat Glomerular Filtration Rate > 60 mL/min (>60) Glucose Level 125 mg/dL (74-106) H Calcium Level 8.8 mg/dL (8.6-10.2) Vancomycin Level Trough 11.2 ug/mL (5.0-12.0) Microbiology Date/Time Source Procedure Growth Status 11/06/16 05:55 Stool Clostridium difficile Toxin Assay - Final Complete 11/03/16 17:40 Urine,Clean Catch Urine Culture - Final Mixed Gram Positive Organism Complete Intake and Output 11/05/16 11/06/16 19:00 07:00 Intake Total 1198.708 ml 825 ml Output Total 800 ml 600 ml Balance 398.708 ml 225 ml Free Water 300 ml IV Total 443.708 ml 825 ml Tube Feeding 455 ml Output Urine Total 800 ml 600 ml # Voids 1 # Bowel Movements 1 Objective General Appearance: moderate distress, thin EENT: PERRL/EOMI, normal ENT inspection Neck: non-tender, normal alignment, supple Cardiovascular: normal peripheral pulses, normal rate, regular rhythm, no gallop/murmur, no JVD Respiratory/Chest: Trach; Mech Vent; trach; respiratory distress, crackles/ rales, rhonchi - bilaterally, expiratory wheezing Abdomen: non tender, soft, no organomegaly, no mass, decreased bowel sounds Extremities: normal range of motion Skin: normal pigmentation, warm/dry Assessment/Plan Problem List: (1) Lung nodule (2) DVT (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 (3) Acute respiratory failure Assessment & Plan: S/P tracheostomy 10/03/16. Failed weaning trial. Cont vent per pulmonary (4) COPD exacerbation Assessment & Plan: Continue duoneb. Continue vent per pulmonary. (5) Pneumonia Assessment & Plan: New left basilar consolidation. Restart cefepime per ID (6) Leukocytosis Assessment & Plan: Improving. Await Culture results. Start meropenem and vanco per ID (7) Dysphagia Assessment & Plan: See GI consult- S/P PEG 10/04/16. (8) Hypoglycemia Assessment & Plan: D50 prn; decrease insulin sliding scale. (9) Dysuria Assessment & Plan: D/C garcia cath. (10) Severe sepsis Assessment & Plan: Start meropenem, and vanco ( IV and Oral) per ID. Await repeat CT abdomen and pelvis (11) Hypotension Assessment & Plan: Transfer to ICU if pressors are needed. (12) Gastric mass (13) Mass of colon Assessment & Plan: Repeat CT abd and pelvis per GI. Status: not improved TADEO VERDIN November 06, 2016 11:47
[2016-11-06 12:16] VITALS: BP 106/68
--- NOTE | 2016-11-06 15:34 | Cardiac Electrophysiology PN ---
Assessment/Plan Assessment/Plan 1. Sinus tachycardia due to sepsis. The patient is on broad-spectrum intravenous antibiotics with vancomycin and meropenem. 2. Severe pulmonary hypertension of 67 due to severe chronic obstructive pulmonary disease. 3. Ventilator-dependant respiratory failure, status post tracheostomy. 4. Dysphagia, status post percutaneous endoscopic gastrostomy placement. 5. Sepsis, on broad-spectrum intravenous antibiotics. 6. Chronic encephalopathy. DW RN Subjective Subjective No significant arrhythmias on tele. On Vent via tracheostomy. Non verbal. Objective Last 24 Hour Vital Signs Date Time Temp Pulse Resp B/P Pulse Ox O2 Delivery O2 Flow Rate FiO2 11/06/16 14:50 100 21 30 11/06/16 12:36 105 18 30 11/06/16 12:16 97.7 108 17 106/68 100 Mechanical Ventilator 11/06/16 11:38 98 11/06/16 11:38 30 11/06/16 10:35 101 21 99 Mechanical Ventilator 10.0 30 11/06/16 10:35 99 22 30 11/06/16 10:34 30 11/06/16 10:34 98 17 98 Mechanical Ventilator 10.0 30 11/06/16 09:06 100 20 30 11/06/16 08:00 97.5 104 17 89/67 100 Mechanical Ventilator 11/06/16 08:00 30 11/06/16 08:00 106 11/06/16 07:30 98 16 30 11/06/16 05:11 113 16 30 11/06/16 04:00 98.3 118 18 98/73 100 Mechanical Ventilator 11/06/16 04:00 30 11/06/16 04:00 107 11/06/16 03:07 107 16 30 11/06/16 01:30 122 16 98 Mechanical Ventilator 30 11/06/16 01:29 117 16 96 Mechanical Ventilator 30 11/06/16 01:06 111 16 30 11/06/16 00:27 98.6 119 18 110/60 100 Mechanical Ventilator 11/06/16 00:00 30 11/06/16 00:00 115 11/05/16 22:57 115 16 30 11/05/16 21:09 118 16 30 11/05/16 20:00 124 11/05/16 20:00 98.7 120 19 106/56 100 Mechanical Ventilator 11/05/16 20:00 30 11/05/16 19:40 119 17 30 11/05/16 19:35 83 22 30 11/05/16 17:07 116 16 30 11/05/16 16:50 121 11/05/16 16:16 30 11/05/16 16:00 97.9 116 16 89/63 100 Mechanical Ventilator 30 Intake and Output 11/05/16 11/06/16 19:00 07:00 Intake Total 1198.708 ml 825 ml Output Total 800 ml 600 ml Balance 398.708 ml 225 ml Free Water 300 ml IV Total 443.708 ml 825 ml Tube Feeding 455 ml Output Urine Total 800 ml 600 ml # Voids 1 # Bowel Movements 1 Laboratory Tests Test 11/06/16 01:40 White Blood Count 37.7 K/UL (4.8-10.8) *H Red Blood Count 3.61 M/UL (4.70-6.10) L Hemoglobin 9.9 G/DL (14.2-18.0) L Hematocrit 32.0 % (42.0-52.0) L Mean Corpuscular Volume 89 FL (80-99) Mean Corpuscular Hemoglobin 27.3 PG (27.0-31.0) Mean Corpuscular Hemoglobin Concent 30.9 G/DL (32.0-36.0) L Red Cell Distribution Width 14.7 % (11.6-14.8) Platelet Count 195 K/UL (150-450) Mean Platelet Volume 7.1 FL (6.5-10.1) Neutrophils (%) (Auto) % (45.0-75.0) Lymphocytes (%) (Auto) % (20.0-45.0) Monocytes (%) (Auto) % (1.0-10.0) Eosinophils (%) (Auto) % (0.0-3.0) Basophils (%) (Auto) % (0.0-2.0) Differential Total Cells Counted 100 Neutrophils % (Manual) 83 % (45-75) H Lymphocytes % (Manual) 7 % (20-45) L Monocytes % (Manual) 10 % (1-10) Eosinophils % (Manual) 0 % (0-3) Basophils % (Manual) 0 % (0-2) Band Neutrophils 0 % (0-8) Platelet Estimate Adequate Platelet Morphology Normal Hypochromasia 1+ Anisocytosis 1+ Sodium Level 134 mEQ/L (135-145) L Potassium Level 4.6 mEQ/L (3.4-4.9) Chloride Level 95 mEQ/L (98-107) L Carbon Dioxide Level 25 mEQ/L (20-30) Anion Gap 14 (5-15) Blood Urea Nitrogen 23 mg/dL (7-23) Creatinine 0.6 mg/dL (0.7-1.2) L Estimat Glomerular Filtration Rate > 60 mL/min (>60) Glucose Level 125 mg/dL (74-106) H Calcium Level 8.8 mg/dL (8.6-10.2) Vancomycin Level Trough 11.2 ug/mL (5.0-12.0) Microbiology Date/Time Source Procedure Growth Status 11/05/16 14:00 Sputum Gram Stain - Final Resulted 11/05/16 14:00 Sputum Sputum Culture Pending Resulted 11/06/16 05:55 Stool Clostridium difficile Toxin Assay - Final Complete 11/03/16 17:40 Urine,Clean Catch Urine Culture - Final Mixed Gram Positive Organism Complete Objective HEAD AND NECK: Showed no jugular venous distention, status post tracheostomy. LUNGS: Coarse rhonchi bilaterally. CARDIOVASCULAR: Tachycardic S1 and S2 with no gallop or murmur. ABDOMEN: Soft. Status post G-tube. EXTREMITIES: No pitting edema. OSWALD HILLS November 06, 2016 15:34
[2016-11-06 16:00] VITALS: BP 92/60
--- NOTE | 2016-11-06 17:28 | General Progress Note ---
Assessment/Plan Assessment/Plan Assessment - Polyps seen on CT in unprepared colon --> need to verify after catharsis - COPD - respiratory failure - s/p trach and PEG - dysphagia - h/o OB (+) - Anemia Recommendations - Repeat CT after colonic lavage - hold feeds - elevate HOB - GT care - follow labs - ? get old colonoscopy from [facility] Subjective Allergies: Coded Allergies: No Known Allergies (Unverified , 06/17/16) Subjective Feels OK no new symtoms (+) BM with prep for CT scan Objective Last 24 Hour Vital Signs Date Time Temp Pulse Resp B/P Pulse Ox O2 Delivery O2 Flow Rate FiO2 11/06/16 16:56 122 20 30 11/06/16 16:00 30 11/06/16 16:00 112 11/06/16 14:50 100 21 30 11/06/16 12:36 105 18 30 11/06/16 12:16 97.7 108 17 106/68 100 Mechanical Ventilator 11/06/16 11:38 98 11/06/16 11:38 30 11/06/16 10:35 101 21 99 Mechanical Ventilator 10.0 30 11/06/16 10:35 99 22 30 11/06/16 10:34 30 11/06/16 10:34 98 17 98 Mechanical Ventilator 10.0 30 11/06/16 09:06 100 20 30 11/06/16 08:00 97.5 104 17 89/67 100 Mechanical Ventilator 11/06/16 08:00 30 11/06/16 08:00 106 11/06/16 07:30 98 16 30 11/06/16 05:11 113 16 30 11/06/16 04:00 98.3 118 18 98/73 100 Mechanical Ventilator 11/06/16 04:00 30 11/06/16 04:00 107 11/06/16 03:07 107 16 30 11/06/16 01:30 122 16 98 Mechanical Ventilator 30 11/06/16 01:29 117 16 96 Mechanical Ventilator 30 11/06/16 01:06 111 16 30 11/06/16 00:27 98.6 119 18 110/60 100 Mechanical Ventilator 11/06/16 00:00 30 11/06/16 00:00 115 11/05/16 22:57 115 16 30 11/05/16 21:09 118 16 30 11/05/16 20:00 124 11/05/16 20:00 98.7 120 19 106/56 100 Mechanical Ventilator 11/05/16 20:00 30 11/05/16 19:40 119 17 30 11/05/16 19:35 83 22 30 Intake and Output 11/05/16 11/06/16 19:00 07:00 Intake Total 1198.708 ml 900 ml Output Total 800 ml 600 ml Balance 398.708 ml 300 ml Free Water 300 ml IV Total 443.708 ml 900 ml Tube Feeding 455 ml Output Urine Total 800 ml 600 ml # Voids 1 # Bowel Movements 1 Laboratory Tests 11/06/16 01:40: White Blood Count 37.7*H, Red Blood Count 3.61L, Hemoglobin 9.9L, Hematocrit 32.0L, Mean Corpuscular Volume 89, Mean Corpuscular Hemoglobin 27.3, Mean Corpuscular Hemoglobin Concent 30.9L, Red Cell Distribution Width 14.7, Platelet Count 195, Mean Platelet Volume 7.1, Neutrophils (%) (Auto) , Lymphocytes (%) (Auto) , Monocytes (%) (Auto) , Eosinophils (%) (Auto) , Basophils (%) (Auto) , Differential Total Cells Counted 100, Neutrophils % ( Manual) 83H, Lymphocytes % (Manual) 7L, Monocytes % (Manual) 10, Eosinophils % ( Manual) 0, Basophils % (Manual) 0, Band Neutrophils 0, Platelet Estimate Adequate, Platelet Morphology Normal, Hypochromasia 1+, Anisocytosis 1+, Sodium Level 134L, Potassium Level 4.6, Chloride Level 95L, Carbon Dioxide Level 25, Anion Gap 14, Blood Urea Nitrogen 23, Creatinine 0.6L, Estimat Glomerular Filtration Rate > 60, Glucose Level 125H, Calcium Level 8.8, Vancomycin Level Trough 11.2 Height (Feet): 6 Height (Inches): 2.00 Weight (Pounds): 126 Objective Elderly AA man NCAT (+) trach Coarse BS RRR soft NT abdomen, (+) GT responsive ROSEMARY BURROUGHS November 06, 2016 17:28
--- NOTE | 2016-11-06 18:11 | Infectious Diseases Prog Note ---
Assessment/Plan Assessment/Plan ASSESSMENT: 66 y/o male with: // COPD exacerbation - delayed SCx 4+ PSA SP Rx - CXR 09/27: Lungs are hyperinflated. No new infiltrates - negative: influenza // Leukocytosis - improving // Hypotension SP // Abd pain ?etio CDiff neg , LAC : Nl - Ct of Abd : 4.4 x 3 x 4.4 cm filling defect within the proximal ascending colon.Appearance is that of a polyp on a stalk. Size of this lesion raises concern for malignancy. // Ro C Diff Neg vs Isch colitis // Febrile low grade , SP // HIV and Hep B/C : neg // - PEG 10/04 // Acute VDRF - intubated 09/20, 10/03 SP trach // Severe pulmonary HTN / grade I diastolic dysfunction / mod TR // Pulmonary nodules // Chronic RLE DVT // Tobacco abuse // [facility] resident // Negative MRSA, VRE screens // NKDA // Full Code PLAN: - cont Merrem and Vanco d# 3 , and oral Vanco d# 2 ( will cont for now despite neg C Diff ) ( 10/17 SP Ceftazidime d# 14 ) ( 10/13 SP Jairon nebs d# 14 ) ( 10/11 SP Flagyl d# 10 ) ( 10/04 SP oral Vanco d# 3 ) ( 09/24 SP amikacin, invanz d# 5 / 5 ) ( 09/21 SP IV vancomycin d# 2 ) - taper steroids per pulm - monitor CBC, temperatures - monitor BMP - monitor CXR - vent support, wean as tolerated - Repeat CT after colonic lavage as per GI Subjective Constitutional: Denies: anorexia, chills, drenching sweats, fatigue, fever, no symptoms, other Allergies: Coded Allergies: No Known Allergies (Unverified , 06/17/16) Subjective leukocytes improving Objective Vital Signs Last 24 Hour Vital Signs Date Time Temp Pulse Resp B/P Pulse Ox O2 Delivery O2 Flow Rate FiO2 11/06/16 16:56 122 20 30 11/06/16 16:00 30 11/06/16 16:00 112 11/06/16 14:50 100 21 30 11/06/16 12:36 105 18 30 11/06/16 12:16 97.7 108 17 106/68 100 Mechanical Ventilator 11/06/16 11:38 98 11/06/16 11:38 30 11/06/16 10:35 101 21 99 Mechanical Ventilator 10.0 30 11/06/16 10:35 99 22 30 11/06/16 10:34 30 11/06/16 10:34 98 17 98 Mechanical Ventilator 10.0 30 11/06/16 09:06 100 20 30 11/06/16 08:00 97.5 104 17 89/67 100 Mechanical Ventilator 11/06/16 08:00 30 11/06/16 08:00 106 11/06/16 07:30 98 16 30 11/06/16 05:11 113 16 30 11/06/16 04:00 98.3 118 18 98/73 100 Mechanical Ventilator 11/06/16 04:00 30 11/06/16 04:00 107 11/06/16 03:07 107 16 30 11/06/16 01:30 122 16 98 Mechanical Ventilator 30 11/06/16 01:29 117 16 96 Mechanical Ventilator 30 11/06/16 01:06 111 16 30 11/06/16 00:27 98.6 119 18 110/60 100 Mechanical Ventilator 11/06/16 00:00 30 11/06/16 00:00 115 11/05/16 22:57 115 16 30 11/05/16 21:09 118 16 30 11/05/16 20:00 124 11/05/16 20:00 98.7 120 19 106/56 100 Mechanical Ventilator 11/05/16 20:00 30 11/05/16 19:40 119 17 30 11/05/16 19:35 83 22 30 Height (Feet): 6 Height (Inches): 2.00 Weight (Pounds): 126 HEENT: atraumatic Respiratory/Chest: normal breath sounds Cardiovascular: normal rate Abdomen: soft, non tender Microbiology Date/Time Source Procedure Growth Status 11/05/16 14:00 Sputum Gram Stain - Final Resulted 11/05/16 14:00 Sputum Sputum Culture Pending Resulted 11/06/16 05:55 Stool Clostridium difficile Toxin Assay - Final Complete Laboratory Tests Test 11/06/16 01:40 White Blood Count 37.7 K/UL (4.8-10.8) *H Red Blood Count 3.61 M/UL (4.70-6.10) L Hemoglobin 9.9 G/DL (14.2-18.0) L Hematocrit 32.0 % (42.0-52.0) L Mean Corpuscular Volume 89 FL (80-99) Mean Corpuscular Hemoglobin 27.3 PG (27.0-31.0) Mean Corpuscular Hemoglobin Concent 30.9 G/DL (32.0-36.0) L Red Cell Distribution Width 14.7 % (11.6-14.8) Platelet Count 195 K/UL (150-450) Mean Platelet Volume 7.1 FL (6.5-10.1) Neutrophils (%) (Auto) % (45.0-75.0) Lymphocytes (%) (Auto) % (20.0-45.0) Monocytes (%) (Auto) % (1.0-10.0) Eosinophils (%) (Auto) % (0.0-3.0) Basophils (%) (Auto) % (0.0-2.0) Differential Total Cells Counted 100 Neutrophils % (Manual) 83 % (45-75) H Lymphocytes % (Manual) 7 % (20-45) L Monocytes % (Manual) 10 % (1-10) Eosinophils % (Manual) 0 % (0-3) Basophils % (Manual) 0 % (0-2) Band Neutrophils 0 % (0-8) Platelet Estimate Adequate Platelet Morphology Normal Hypochromasia 1+ Anisocytosis 1+ Sodium Level 134 mEQ/L (135-145) L Potassium Level 4.6 mEQ/L (3.4-4.9) Chloride Level 95 mEQ/L (98-107) L Carbon Dioxide Level 25 mEQ/L (20-30) Anion Gap 14 (5-15) Blood Urea Nitrogen 23 mg/dL (7-23) Creatinine 0.6 mg/dL (0.7-1.2) L Estimat Glomerular Filtration Rate > 60 mL/min (>60) Glucose Level 125 mg/dL (74-106) H Calcium Level 8.8 mg/dL (8.6-10.2) Vancomycin Level Trough 11.2 ug/mL (5.0-12.0) Current Medications Medications (Trade) Dose Ordered Sig/Shraddha Route PRN Reason Start Time Stop Time Status Last Admin Dose Admin Acetaminophen (Tylenol) 650 mg Q4H PRN ORAL fever>100.5 11/02/16 17:00 12/02/16 16:59 Acetaminophen 650 mg 650 mg Q4H PRN GT headache 11/03/16 08:00 12/03/16 07:59 11/03/16 07:58 Dextrose (Dextrose 50%) STAT PRN IV Hypoglycemia 11/02/16 17:00 12/02/16 16:59 Dextrose/Sodium Chloride 1,000 ml @ 75 mls/hr [id number] IV 11/05/16 16:00 12/05/16 15:59 11/06/16 07:13 Insulin Aspart (NovoLOG) start when feeding started Q6HR SUBQ 11/02/16 18:00 12/02/16 17:59 11/06/16 06:21 Lansoprazole (Prevacid) 30 mg DAILY GT 10/31/16 09:00 11/30/16 08:59 11/06/16 09:52 Levalbuterol HCl (Xopenex) 1.25 mg Q4H PRN HHN Bronchospasm 11/05/16 11:46 11/10/16 11:45 11/06/16 10:33 Lorazepam (Ativan 2mg/ml 1ml) 0.5 mg Q4H PRN IV For Anxiety 11/03/16 07:45 11/10/16 07:44 11/05/16 14:11 Meropenem/Sodium Chloride (Merrem/Sodium Chloride) 110 ml @ 220 mls/hr Q8HR IVPB 11/04/16 14:00 11/09/16 13:59 11/06/16 14:29 Metoclopramide HCl (Reglan) 10 mg THREE TIMES A DAY GT 10/24/16 19:00 11/23/16 18:59 11/06/16 14:28 Ondansetron HCl (Zofran) 4 mg Q6H PRN IVP Nausea & Vomiting 11/02/16 17:00 12/02/16 16:59 Polyethylene Glycol (Miralax) 17 gm DAILYPRN PRN GT Constipation 10/25/16 01:00 11/24/16 00:59 11/03/16 00:00 Vancomycin HCl (Vanco rx to dose) 1 ea DAILY PRN MISC Per rx protocol 11/04/16 12:30 12/04/16 12:29 Vancomycin HCl 125 mg 125 mg FOUR TIMES A DAY ORAL 11/05/16 13:00 11/12/16 12:59 11/06/16 14:28 Vancomycin HCl/ Dextrose (Vancomycin/D5W) 275 ml @ 183.708 mls/hr Q12HR@1100,2300 IVPB 11/06/16 23:00 11/11/16 22:59 KIMBERLEE HINKLE M.D. November 06, 2016 18:11
[2016-11-06 20:00] VITALS: BP 97/63
[2016-11-06] MEDS: LORazepam Inj 2mg/ml 1ml IV PRN (20:20)
[2016-11-06] MEDS: Vancomycin 1gm/D5W 275ml IVPB SCH ×2 (22:39)
[2016-11-07] VITALS: BP 88/64
[2016-11-07] MEDS: LORazepam Inj 2mg/ml 1ml IV PRN ×3 (02:49→22:21)
[2016-11-07] MEDS: Levalbuterol Inh UD 1.25mg/0.5ml HHN PRN ×3 (03:22→13:16)
[2016-11-07] MEDS: D5 1/2NS 1,000 ML IV SCH ×2 (03:36→18:00)
[2016-11-07 03:45] LABS: MEAN CORPUSCULAR HEMOGLOBIN 26.5 PG (27.0-31.0); MEAN CORPUSCULAR HGB CONC 30.7 G/DL (32.0-36.0); MEAN CORPUSCULAR VOLUME 86 FL (80-99); MEAN PLATELET VOLUME 7.8 FL (6.5-10.1); PLATELET COUNT 304 K/UL (150-450); RED CELL DISTRIBUTION WIDTH 14.6 % (11.6-14.8)
[2016-11-07 03:58] LABS: WHITE BLOOD COUNT 37.8 K/UL (4.8-10.8)
[2016-11-07 04:00] VITALS: BP 97/71
[2016-11-07 04:16] LABS: ANION GAP 12 (5-15); CALCIUM 8.8 mg/dL (8.6-10.2); CARBON DIOXIDE 27 mEQ/L (20-30); CHLORIDE 97 mEQ/L (98-107); CREATININE 0.5 mg/dL (0.7-1.2); GLOMERULAR FILTRATION RATE > 60 mL/min (>60); HEMOLYSIS 0; POTASSIUM 4.4 mEQ/L (3.4-4.9); SODIUM 136 mEQ/L (135-145)
[2016-11-07] MEDS: Meropenem 1 GM in NS 110 ML IVPB SCH ×3 (05:21→22:47)
[2016-11-07] MEDS: NovoLOG Insulin Flexpen SUBQ SCH ×3 (05:36→17:12)
[2016-11-07 08:00] VITALS: BP 104/78
[2016-11-07 08:35] LABS: ANISOCYTOSIS 1+; BAND NEUTROPHILS % (MANUAL) 0 % (0-8); BASOPHILS % (MANUAL) 0 % (0-2); EOSINOPHILS % (MANUAL) 0 % (0-3); HYPOCHROMASIA 2+; LYMPHOCYTES % (MANUAL) 3 % (20-45); NEUTROPHILS % (MANUAL) 88 % (45-75); PLATELET ESTIMATE ADEQUATE; PLATELET MORPHOLOGY NORMAL; TOTAL CELLS COUNTED 100
--- NOTE | 2016-11-07 08:39 | Diagnostic Imaging Report ---
Indication: Abdominal pain, severe sepsis, abdominal distention, respiratory failure, colonic mass Technique: Spiral acquisitions obtained through the abdomen and pelvis. Patient given oral contrast. No IV contrast utilized, per referring physician request. Multiplanar reconstructions were generated. Total dose length product 514 mGycm. CTDIvol(s) 10 mGy. Dose reduction achieved using automated exposure control Comparison: 11/04/2016 Findings: Again noted is a large ovoid mass within the cecum, appearing unchanged. Other polypoid masses within the colon, as detailed previously, are again demonstrated. The appendix is not clearly identified, but there are no findings to suggest acute appendicitis. Contrast is seen throughout the entirety of the small bowel. This is nondilated, and there is no small bowel wall thickening. No evidence of diverticulosis or diverticulitis. The distal sigmoid and rectum are distended by fluid. No free or loculated intraperitoneal air or fluid. Gastrostomy is again demonstrated. Previously questioned area of gastric antral wall thickening is now well distended, and no definite mass or wall thickening is evident. There is currently some suggestion of mural irregularity of the distal gastric antrum and duodenal bulb, this area is nondistended and this finding is presumably an artifact of under distention. The distal esophagus is unremarkable. The included lung bases now demonstrate a large area of very dense consolidation involving the posterior right lower lobe. This is progressed markedly since the prior exam. There are air bronchograms within the consolidated area. There is probably some pleural fluid present as well, although extent of which is difficult to state in the absence of IV contrast. The left lung base and aerated portions of the right lung base again hyperinflation, consistent with COPD changes. There is again demonstrated pericardial fluid. This may be slightly increased from the prior exam. The heart size is normal More completely included on the current study is a massive right scrotal hydrocele. Previously demonstrated small left inguinal hernia has progressed significantly since the previous study, there is now a considerably larger loop of small bowel within the hernia sac. However, there is no distention to suggest obstruction or wall thickening or surrounding edema to suggest strangulation. Contrast passes through bowel within the hernia into the distal bowel also indicating lack of obstruction. Again demonstrated is mild edema of the subcutaneous and mesenteric fat. This is slightly worse than on the prior study the bladder is unremarkable. Lack of IV contrast limits assessment of the solid organs. The liver is diffusely enlarged. No focal abnormality. The gallbladder, bile ducts, pancreas, spleen, adrenals, kidneys are unremarkable. No retroperitoneal or mesenteric mass or adenopathy. No pelvic mass or adenopathy. The bones again demonstrate extensive degenerative changes. Impression: Since previous exam of 2 days earlier, marked worsening of right lower lobe dense consolidation, consistent with rapidly progressing pneumonia. There may be some associated pleural fluid. Large cecal mass and other polypoid colonic masses, detailed previously, again demonstrated Distal sigmoid or rectum is distended by fluid, could indicate diarrhea Previously questioned area gastric antral wall thickening is nondistended, previous finding presumed artifactual due to lack of distention. COPD changes, also previously described Suggestion of slightly increased pericardial fluid Mild anasarca, with diffuse edema of the subcutaneous and abdominal fat, slightly increased from previous study Massive right scrotal hydrocele Marked increase in amount since previous study. However, no evidence of obstruction or strangulation of bowel within the left inguinal hernia Hepatomegaly Findings disc -- ussed by phone with Dr. Andrade and Dr. Rader at the time of interpretation The CT scanner at [facility] is accredited by the [employer] and the scans are performed using protocols designed to limit radiation exposure to as low as reasonably achievable to attain images of sufficient resolution adequate for diagnostic evaluation.
[2016-11-07] MEDS: Vancomycin oral 125mg/2.5ml ORAL SCH ×4 (09:36→22:21)
--- NOTE | 2016-11-07 09:57 | Infectious Diseases Prog Note ---
Assessment/Plan Assessment/Plan ASSESSMENT: 66 y/o male with: // VAP CT : Since previous exam of 2 days earlier, marked worsening of right lower lobe dense consolidation, consistent with rapidly progressing pneumonia. // COPD exacerbation - delayed SCx 4+ PSA SP Rx - CXR 09/27: Lungs are hyperinflated. No new infiltrates - negative: influenza // Leukocytosis - // Hypotension SP // Abd pain ?etio CDiff neg , LAC : Nl - Ct of Abd : 4.4 x 3 x 4.4 cm filling defect within the proximal ascending colon.Appearance is that of a polyp on a stalk. Size of this lesion raises concern for malignancy. // Ro C Diff Neg vs Isch colitis // Febrile low grade , SP // HIV and Hep B/C : neg // colon mass ro cancer , GI is following CT: Large cecal mass and other polypoid colonic masses, detailed previously , again demonstrated // - PEG 10/04 // Acute VDRF - intubated 09/20, 10/03 SP trach // Severe pulmonary HTN / grade I diastolic dysfunction / mod TR // Pulmonary nodules // Chronic RLE DVT // Tobacco abuse // [place] resident // Negative MRSA, VRE screens // NKDA // Full Code PLAN: - cont Merrem and Vanco d# 4 , and oral Vanco d# 3 ( will cont for now despite neg C Diff ) ( 10/17 SP Ceftazidime d# 14 ) ( 10/13 SP Jairon nebs d# 14 ) ( 10/11 SP Flagyl d# 10 ) ( 10/04 SP oral Vanco d# 3 ) ( 09/24 SP amikacin, invanz d# 5 / 5 ) ( 09/21 SP IV vancomycin d# 2 ) - taper steroids per pulm - monitor CBC, temperatures - monitor BMP - monitor CXR - vent support, wean as tolerated - Monitor Cx ( SP , Ur, Bl ) Subjective Constitutional: Denies: anorexia, chills, drenching sweats, fatigue, fever, no symptoms, other Allergies: Coded Allergies: No Known Allergies (Unverified , 06/17/16) Subjective leukocytes improving Objective Vital Signs Last 24 Hour Vital Signs Date Time Temp Pulse Resp B/P Pulse Ox O2 Delivery O2 Flow Rate FiO2 11/07/16 09:15 114 15 30 11/07/16 08:18 131 16 94 Mechanical Ventilator 30 11/07/16 08:00 98.0 130 22 104/78 95 Mechanical Ventilator 11/07/16 08:00 30 11/07/16 07:34 133 11/07/16 07:06 127 20 30 11/07/16 04:39 128 21 30 11/07/16 04:00 30 11/07/16 04:00 97.9 129 16 97/71 94 Mechanical Ventilator 11/07/16 04:00 128 11/07/16 03:32 122 22 99 Mechanical Ventilator 30 11/07/16 03:23 30 11/07/16 03:23 132 28 93 Mechanical Ventilator 30 11/07/16 03:20 121 23 30 11/07/16 01:17 99 17 30 11/07/16 00:00 116 11/07/16 00:00 30 11/07/16 00:00 97.3 117 16 88/64 100 Mechanical Ventilator 11/06/16 23:56 136 23 99 Mechanical Ventilator 30 11/06/16 23:40 133 22 30 11/06/16 23:18 30 11/06/16 23:17 130 23 95 Mechanical Ventilator 30 11/06/16 21:22 134 21 30 11/06/16 20:47 128 11/06/16 20:00 30 11/06/16 20:00 96.9 128 16 97/63 93 Mechanical Ventilator 11/06/16 19:36 123 21 99 Mechanical Ventilator 30 11/06/16 19:26 125 22 30 11/06/16 19:26 125 22 99 Mechanical Ventilator 30 11/06/16 16:56 122 20 30 11/06/16 16:00 30 11/06/16 16:00 97.9 111 16 92/60 100 Mechanical Ventilator 11/06/16 16:00 112 11/06/16 14:50 100 21 30 11/06/16 12:36 105 18 30 11/06/16 12:16 97.7 108 17 106/68 100 Mechanical Ventilator 11/06/16 11:38 98 11/06/16 11:38 30 11/06/16 10:35 101 21 99 Mechanical Ventilator 10.0 30 11/06/16 10:35 99 22 30 11/06/16 10:34 30 11/06/16 10:34 98 17 98 Mechanical Ventilator 10.0 30 Height (Feet): 6 Height (Inches): 2.00 Weight (Pounds): 126 HEENT: atraumatic Respiratory/Chest: normal breath sounds Cardiovascular: regular rhythm Abdomen: non distended Microbiology Date/Time Source Procedure Growth Status 11/06/16 01:45 Blood Blood Culture - Preliminary NO GROWTH AFTER 24 HOURS Resulted 11/06/16 01:40 Blood Blood Culture - Preliminary NO GROWTH AFTER 24 HOURS Resulted 11/05/16 14:00 Sputum Gram Stain - Final Resulted 11/05/16 14:00 Sputum Culture - Preliminary Gram Negative Bacillus 1 Resulted 11/06/16 05:55 Stool Clostridium difficile Toxin Assay - Final Complete 11/06/16 05:55 Urine,Clean Catch Urine Culture - Preliminary Resulted Laboratory Tests Test 11/07/16 03:10 White Blood Count 37.8 K/UL (4.8-10.8) *H Red Blood Count 3.50 M/UL (4.70-6.10) L Hemoglobin 9.3 G/DL (14.2-18.0) L Hematocrit 30.1 % (42.0-52.0) L Mean Corpuscular Volume 86 FL (80-99) Mean Corpuscular Hemoglobin 26.5 PG (27.0-31.0) L Mean Corpuscular Hemoglobin Concent 30.7 G/DL (32.0-36.0) L Red Cell Distribution Width 14.6 % (11.6-14.8) Platelet Count 304 K/UL (150-450) # Mean Platelet Volume 7.8 FL (6.5-10.1) Neutrophils (%) (Auto) % (45.0-75.0) Lymphocytes (%) (Auto) % (20.0-45.0) Monocytes (%) (Auto) % (1.0-10.0) Eosinophils (%) (Auto) % (0.0-3.0) Basophils (%) (Auto) % (0.0-2.0) Differential Total Cells Counted 100 Neutrophils % (Manual) 88 % (45-75) H Lymphocytes % (Manual) 3 % (20-45) L Monocytes % (Manual) 9 % (1-10) Eosinophils % (Manual) 0 % (0-3) Basophils % (Manual) 0 % (0-2) Band Neutrophils 0 % (0-8) Platelet Estimate Adequate Platelet Morphology Normal Hypochromasia 2+ Anisocytosis 1+ Sodium Level 136 mEQ/L (135-145) Potassium Level 4.4 mEQ/L (3.4-4.9) Chloride Level 97 mEQ/L (98-107) L Carbon Dioxide Level 27 mEQ/L (20-30) Anion Gap 12 (5-15) Blood Urea Nitrogen 17 mg/dL (7-23) Creatinine 0.5 mg/dL (0.7-1.2) L Estimat Glomerular Filtration Rate > 60 mL/min (>60) Glucose Level 130 mg/dL (74-106) H Calcium Level 8.8 mg/dL (8.6-10.2) Current Medications Medications (Trade) Dose Ordered Sig/Shraddha Route PRN Reason Start Time Stop Time Status Last Admin Dose Admin Acetaminophen (Tylenol) 650 mg Q4H PRN ORAL fever>100.5 11/02/16 17:00 12/02/16 16:59 Acetaminophen 650 mg 650 mg Q4H PRN GT headache 11/03/16 08:00 12/03/16 07:59 11/03/16 07:58 Dextrose (Dextrose 50%) STAT PRN IV Hypoglycemia 11/02/16 17:00 12/02/16 16:59 Dextrose/Sodium Chloride 1,000 ml @ 75 mls/hr [id number] IV 11/05/16 16:00 12/05/16 15:59 11/07/16 03:36 Insulin Aspart (NovoLOG) start when feeding started Q6HR SUBQ 11/02/16 18:00 12/02/16 17:59 11/07/16 05:36 Lansoprazole (Prevacid) 30 mg DAILY GT 10/31/16 09:00 11/30/16 08:59 11/07/16 09:36 Levalbuterol HCl (Xopenex) 1.25 mg Q4H PRN HHN Bronchospasm 11/05/16 11:46 11/10/16 11:45 11/07/16 08:18 Lorazepam (Ativan 2mg/ml 1ml) 0.5 mg Q4H PRN IV For Anxiety 11/03/16 07:45 11/10/16 07:44 11/07/16 02:49 Meropenem/Sodium Chloride (Merrem/Sodium Chloride) 110 ml @ 220 mls/hr Q8HR IVPB 11/04/16 14:00 11/09/16 13:59 11/07/16 05:21 Metoclopramide HCl (Reglan) 10 mg THREE TIMES A DAY GT 10/24/16 19:00 11/23/16 18:59 11/07/16 09:36 Ondansetron HCl (Zofran) 4 mg Q6H PRN IVP Nausea & Vomiting 11/02/16 17:00 12/02/16 16:59 Polyethylene Glycol (Miralax) 17 gm DAILYPRN PRN GT Constipation 10/25/16 01:00 11/24/16 00:59 11/03/16 00:00 Vancomycin HCl (Vanco rx to dose) 1 ea DAILY PRN MISC Per rx protocol 11/04/16 12:30 12/04/16 12:29 Vancomycin HCl 125 mg 125 mg FOUR TIMES A DAY ORAL 11/05/16 13:00 11/12/16 12:59 11/07/16 09:36 Vancomycin HCl/ Dextrose (Vancomycin/D5W) 275 ml @ 183.708 mls/hr Q12HR@1100,2300 IVPB 11/06/16 23:00 11/11/16 22:59 11/06/16 22:39 KIMBERLEE HINKLE M.D. November 07, 2016 09:57
[2016-11-07] MEDS: Vancomycin 1gm/D5W 275ml IVPB SCH ×4 (10:43→23:58)
--- NOTE | 2016-11-07 11:47 | Pulmonology Progress Note ---
Assessment/Plan Problems: (1) Severe sepsis (2) Abdominal distention (3) Respiratory failure (4) COPD exacerbation (5) Emphysema of lung (6) Colonic mass Assessment/Plan cxr today continue current vent setting, titrate fio2 to sat of 92% not tolerating weaning abx as per ID f/u wbc cxr on 11/04 was negative Subjective ROS Limited/Unobtainable: No Constitutional: Reports: no symptoms HEENT: Repors: no symptoms Respiratory: Reports: no symptoms Cardiovascular: Reports: no symptoms Allergies: Coded Allergies: No Known Allergies (Unverified , 06/17/16) Objective Last 24 Hour Vital Signs Date Time Temp Pulse Resp B/P Pulse Ox O2 Delivery O2 Flow Rate FiO2 11/07/16 11:10 134 19 30 11/07/16 09:15 114 15 30 11/07/16 08:18 131 16 94 Mechanical Ventilator 30 11/07/16 08:00 98.0 130 22 104/78 95 Mechanical Ventilator 11/07/16 08:00 30 11/07/16 07:34 133 11/07/16 07:06 127 20 30 11/07/16 04:39 128 21 30 11/07/16 04:00 30 11/07/16 04:00 97.9 129 16 97/71 94 Mechanical Ventilator 11/07/16 04:00 128 11/07/16 03:32 122 22 99 Mechanical Ventilator 30 11/07/16 03:23 30 11/07/16 03:23 132 28 93 Mechanical Ventilator 30 11/07/16 03:20 121 23 30 11/07/16 01:17 99 17 30 11/07/16 00:00 116 11/07/16 00:00 30 11/07/16 00:00 97.3 117 16 88/64 100 Mechanical Ventilator 11/06/16 23:56 136 23 99 Mechanical Ventilator 30 11/06/16 23:40 133 22 30 11/06/16 23:18 30 11/06/16 23:17 130 23 95 Mechanical Ventilator 30 11/06/16 21:22 134 21 30 11/06/16 20:47 128 11/06/16 20:00 30 11/06/16 20:00 96.9 128 16 97/63 93 Mechanical Ventilator 11/06/16 19:36 123 21 99 Mechanical Ventilator 30 11/06/16 19:26 125 22 30 11/06/16 19:26 125 22 99 Mechanical Ventilator 30 11/06/16 16:56 122 20 30 11/06/16 16:00 30 11/06/16 16:00 97.9 111 16 92/60 100 Mechanical Ventilator 11/06/16 16:00 112 11/06/16 14:50 100 21 30 11/06/16 12:36 105 18 30 11/06/16 12:16 97.7 108 17 106/68 100 Mechanical Ventilator Intake and Output 11/06/16 11/07/16 19:00 07:00 Intake Total 975 ml 1711.2500 ml Output Total 450 ml 450 ml Balance 525 ml 1261.2500 ml Free Water 300 ml 300 ml IV Total 675 ml 1411.2500 ml Output Urine Total 450 ml 450 ml # Bowel Movements 5 4 Objective Status: awake HEENT: atraumatic, normocephalic Lungs: clear, decreased breath sounds Heart: HR/BP stable Abdomen: soft, non-tender Extremities: no C/C/E, edema Microbiology Date/Time Source Procedure Growth Status 11/06/16 01:45 Blood Blood Culture - Preliminary NO GROWTH AFTER 24 HOURS Resulted 11/06/16 01:40 Blood Blood Culture - Preliminary NO GROWTH AFTER 24 HOURS Resulted 11/05/16 14:00 Sputum Gram Stain - Final Resulted 11/05/16 14:00 Sputum Culture - Preliminary Gram Negative Bacillus 1 Resulted 11/06/16 05:55 Stool Clostridium difficile Toxin Assay - Final Complete 11/06/16 05:55 Urine,Clean Catch Urine Culture - Preliminary Resulted Laboratory Tests 11/07/16 03:10: White Blood Count 37.8*H, Red Blood Count 3.50L, Hemoglobin 9.3L, Hematocrit 30.1L, Mean Corpuscular Volume 86, Mean Corpuscular Hemoglobin 26.5L, Mean Corpuscular Hemoglobin Concent 30.7L, Red Cell Distribution Width 14.6, Platelet Count 304#, Mean Platelet Volume 7.8, Neutrophils (%) (Auto) , Lymphocytes (%) (Auto) , Monocytes (%) (Auto) , Eosinophils (%) (Auto) , Basophils (%) (Auto) , Differential Total Cells Counted 100, Neutrophils % ( Manual) 88H, Lymphocytes % (Manual) 3L, Monocytes % (Manual) 9, Eosinophils % ( Manual) 0, Basophils % (Manual) 0, Band Neutrophils 0, Platelet Estimate Adequate, Platelet Morphology Normal, Hypochromasia 2+, Anisocytosis 1+, Sodium Level 136, Potassium Level 4.4, Chloride Level 97L, Carbon Dioxide Level 27, Anion Gap 12, Blood Urea Nitrogen 17, Creatinine 0.5L, Estimat Glomerular Filtration Rate > 60, Glucose Level 130H, Calcium Level 8.8 Current Medications Medications (Trade) Dose Ordered Sig/Shraddha Route PRN Reason Start Time Stop Time Status Last Admin Dose Admin Acetaminophen (Tylenol) 650 mg Q4H PRN ORAL fever>100.5 11/02/16 17:00 12/02/16 16:59 Acetaminophen 650 mg 650 mg Q4H PRN GT headache 11/03/16 08:00 12/03/16 07:59 11/03/16 07:58 Dextrose (Dextrose 50%) STAT PRN IV Hypoglycemia 11/02/16 17:00 12/02/16 16:59 Dextrose/Sodium Chloride 1,000 ml @ 75 mls/hr [id number] IV 11/05/16 16:00 12/05/16 15:59 11/07/16 03:36 Insulin Aspart (NovoLOG) start when feeding started Q6HR SUBQ 11/02/16 18:00 12/02/16 17:59 11/07/16 05:36 Lansoprazole (Prevacid) 30 mg DAILY GT 10/31/16 09:00 11/30/16 08:59 11/07/16 09:36 Levalbuterol HCl (Xopenex) 1.25 mg Q4H PRN HHN Bronchospasm 11/05/16 11:46 11/10/16 11:45 11/07/16 08:18 Lorazepam (Ativan 2mg/ml 1ml) 0.5 mg Q4H PRN IV For Anxiety 11/03/16 07:45 11/10/16 07:44 11/07/16 11:35 Meropenem/Sodium Chloride (Merrem/Sodium Chloride) 110 ml @ 220 mls/hr Q8HR IVPB 11/04/16 14:00 11/09/16 13:59 11/07/16 05:21 Metoclopramide HCl (Reglan) 10 mg THREE TIMES A DAY GT 10/24/16 19:00 11/23/16 18:59 11/07/16 09:36 Ondansetron HCl (Zofran) 4 mg Q6H PRN IVP Nausea & Vomiting 11/02/16 17:00 12/02/16 16:59 Polyethylene Glycol (Miralax) 17 gm DAILYPRN PRN GT Constipation 10/25/16 01:00 11/24/16 00:59 11/03/16 00:00 Vancomycin HCl (Vanco rx to dose) 1 ea DAILY PRN MISC Per rx protocol 11/04/16 12:30 12/04/16 12:29 Vancomycin HCl 125 mg 125 mg FOUR TIMES A DAY ORAL 11/05/16 13:00 11/12/16 12:59 11/07/16 09:36 Vancomycin HCl/ Dextrose (Vancomycin/D5W) 275 ml @ 183.708 mls/hr Q12HR@1100,2300 IVPB 11/06/16 23:00 11/11/16 22:59 11/07/16 10:43 REN WRIGHT November 07, 2016 11:47
--- NOTE | 2016-11-07 12:01 | General Progress Note ---
Assessment/Plan Assessment/Plan Assessment - Polyps/mass seen on CT - COPD - respiratory failure - s/p trach and PEG - dysphagia - h/o OB (+) - Anemia Recommendations - hold feeds - elevate HOB - GT care - follow labs - family support Subjective Allergies: Coded Allergies: No Known Allergies (Unverified , 06/17/16) Subjective Feels OK no new symtoms (+) BM with prep repeat CT confirmed colonic mass / polyps d/w pt re colonoscopy --> declined, understands risks d/w sister re pt decision Objective Last 24 Hour Vital Signs Date Time Temp Pulse Resp B/P Pulse Ox O2 Delivery O2 Flow Rate FiO2 11/07/16 11:10 134 19 30 11/07/16 09:15 114 15 30 11/07/16 08:18 131 16 94 Mechanical Ventilator 30 11/07/16 08:00 98.0 130 22 104/78 95 Mechanical Ventilator 11/07/16 08:00 30 11/07/16 07:34 133 11/07/16 07:06 127 20 30 11/07/16 04:39 128 21 30 11/07/16 04:00 30 11/07/16 04:00 97.9 129 16 97/71 94 Mechanical Ventilator 11/07/16 04:00 128 11/07/16 03:32 122 22 99 Mechanical Ventilator 30 11/07/16 03:23 30 11/07/16 03:23 132 28 93 Mechanical Ventilator 30 11/07/16 03:20 121 23 30 11/07/16 01:17 99 17 30 11/07/16 00:00 116 11/07/16 00:00 30 11/07/16 00:00 97.3 117 16 88/64 100 Mechanical Ventilator 11/06/16 23:56 136 23 99 Mechanical Ventilator 30 11/06/16 23:40 133 22 30 11/06/16 23:18 30 11/06/16 23:17 130 23 95 Mechanical Ventilator 30 11/06/16 21:22 134 21 30 11/06/16 20:47 128 11/06/16 20:00 30 11/06/16 20:00 96.9 128 16 97/63 93 Mechanical Ventilator 11/06/16 19:36 123 21 99 Mechanical Ventilator 30 11/06/16 19:26 125 22 30 11/06/16 19:26 125 22 99 Mechanical Ventilator 30 11/06/16 16:56 122 20 30 11/06/16 16:00 30 11/06/16 16:00 97.9 111 16 92/60 100 Mechanical Ventilator 11/06/16 16:00 112 11/06/16 14:50 100 21 30 11/06/16 12:36 105 18 30 11/06/16 12:16 97.7 108 17 106/68 100 Mechanical Ventilator Intake and Output 11/06/16 11/07/16 19:00 07:00 Intake Total 975 ml 1711.2500 ml Output Total 450 ml 450 ml Balance 525 ml 1261.2500 ml Free Water 300 ml 300 ml IV Total 675 ml 1411.2500 ml Output Urine Total 450 ml 450 ml # Bowel Movements 5 4 Laboratory Tests 11/07/16 03:10: White Blood Count 37.8*H, Red Blood Count 3.50L, Hemoglobin 9.3L, Hematocrit 30.1L, Mean Corpuscular Volume 86, Mean Corpuscular Hemoglobin 26.5L, Mean Corpuscular Hemoglobin Concent 30.7L, Red Cell Distribution Width 14.6, Platelet Count 304#, Mean Platelet Volume 7.8, Neutrophils (%) (Auto) , Lymphocytes (%) (Auto) , Monocytes (%) (Auto) , Eosinophils (%) (Auto) , Basophils (%) (Auto) , Differential Total Cells Counted 100, Neutrophils % ( Manual) 88H, Lymphocytes % (Manual) 3L, Monocytes % (Manual) 9, Eosinophils % ( Manual) 0, Basophils % (Manual) 0, Band Neutrophils 0, Platelet Estimate Adequate, Platelet Morphology Normal, Hypochromasia 2+, Anisocytosis 1+, Sodium Level 136, Potassium Level 4.4, Chloride Level 97L, Carbon Dioxide Level 27, Anion Gap 12, Blood Urea Nitrogen 17, Creatinine 0.5L, Estimat Glomerular Filtration Rate > 60, Glucose Level 130H, Calcium Level 8.8 Height (Feet): 6 Height (Inches): 2.00 Weight (Pounds): 126 Objective Elderly AA man NCAT (+) trach Coarse BS RRR soft NT abdomen, (+) GT responsive ROSEMARY BURROUGHS November 07, 2016 12:01
[2016-11-07 12:03] VITALS: BP 128/81
--- NOTE | 2016-11-07 12:45 | Diagnostic Imaging Report ---
Indications: DYSPNEA Technique: Portable AP chest Findings: Comparison: 11/04/2016 Blunting of the right costophrenic angle, hazy opacity over the right hemithorax have developed. Increased interstitial markings have developed in the right lung base. Patchy parenchymal consolidation and volume loss persist in the medial aspect of the right upper lung, partially obscured by overlying ventilator equipment. Left lung and pleura currently clear. Cardiac cell silhouette stable. IMPRESSION: Development of right pleural effusion . Increased interstitial markings right lung base may be artifactual enhancement overlying fusion or represent developing pneumonia or asymmetric pulmonary edema Persistent medial right upper lung opacity, nonspecific, likely chronic inflammatory
--- NOTE | 2016-11-07 15:59 | Cardiac Electrophysiology PN ---
Assessment/Plan Assessment/Plan 1. Sinus tachycardia due to sepsis.Continue broad-spectrum intravenous antibiotics per ID. 2. Severe pulmonary hypertension of 66 due to severe chronic obstructive pulmonary disease. 3. Ventilator-dependant respiratory failure, status post tracheostomy. 4. Dysphagia, status post percutaneous endoscopic gastrostomy placement. 5. Sepsis, on broad-spectrum intravenous antibiotics. 6. Chronic encephalopathy. 7. Polyps seen on CT in unprepared colon --> need to verify after catharsis per Dr Yadira CHAVEZ RN and Dr Andrade Subjective Subjective No arrhythmias on tele. On Vent via tracheostomy with PEG. Non verbal. Objective Last 24 Hour Vital Signs Date Time Temp Pulse Resp B/P Pulse Ox O2 Delivery O2 Flow Rate FiO2 11/07/16 15:01 132 28 30 11/07/16 13:27 127 16 99 Mechanical Ventilator 30 11/07/16 13:17 136 14 94 Mechanical Ventilator 30 11/07/16 13:15 136 14 30 11/07/16 13:04 136 11/07/16 12:03 97.5 139 22 128/81 94 Mechanical Ventilator 30 11/07/16 12:00 30 11/07/16 11:10 134 19 30 11/07/16 09:15 114 15 30 11/07/16 08:28 130 16 99 Mechanical Ventilator 30 11/07/16 08:18 131 16 94 Mechanical Ventilator 30 11/07/16 08:00 98.0 130 22 104/78 95 Mechanical Ventilator 11/07/16 08:00 30 11/07/16 07:34 133 11/07/16 07:06 127 20 30 11/07/16 04:39 128 21 30 11/07/16 04:00 30 11/07/16 04:00 97.9 129 16 97/71 94 Mechanical Ventilator 11/07/16 04:00 128 11/07/16 03:32 122 22 99 Mechanical Ventilator 30 11/07/16 03:23 30 11/07/16 03:23 132 28 93 Mechanical Ventilator 30 11/07/16 03:20 121 23 30 11/07/16 01:17 99 17 30 11/07/16 00:00 116 11/07/16 00:00 30 11/07/16 00:00 97.3 117 16 88/64 100 Mechanical Ventilator 11/06/16 23:56 136 23 99 Mechanical Ventilator 30 11/06/16 23:40 133 22 30 11/06/16 23:18 30 11/06/16 23:17 130 23 95 Mechanical Ventilator 30 11/06/16 21:22 134 21 30 11/06/16 20:47 128 11/06/16 20:00 30 11/06/16 20:00 96.9 128 16 97/63 93 Mechanical Ventilator 11/06/16 19:36 123 21 99 Mechanical Ventilator 30 11/06/16 19:26 125 22 30 11/06/16 19:26 125 22 99 Mechanical Ventilator 30 11/06/16 16:56 122 20 30 11/06/16 16:00 30 11/06/16 16:00 97.9 111 16 92/60 100 Mechanical Ventilator 11/06/16 16:00 112 Intake and Output 11/06/16 11/07/16 19:00 07:00 Intake Total 975 ml 1711.2500 ml Output Total 450 ml 450 ml Balance 525 ml 1261.2500 ml Free Water 300 ml 300 ml IV Total 675 ml 1411.2500 ml Output Urine Total 450 ml 450 ml # Bowel Movements 5 4 Laboratory Tests Test 11/07/16 03:10 White Blood Count 37.8 K/UL (4.8-10.8) *H Red Blood Count 3.50 M/UL (4.70-6.10) L Hemoglobin 9.3 G/DL (14.2-18.0) L Hematocrit 30.1 % (42.0-52.0) L Mean Corpuscular Volume 86 FL (80-99) Mean Corpuscular Hemoglobin 26.5 PG (27.0-31.0) L Mean Corpuscular Hemoglobin Concent 30.7 G/DL (32.0-36.0) L Red Cell Distribution Width 14.6 % (11.6-14.8) Platelet Count 304 K/UL (150-450) # Mean Platelet Volume 7.8 FL (6.5-10.1) Neutrophils (%) (Auto) % (45.0-75.0) Lymphocytes (%) (Auto) % (20.0-45.0) Monocytes (%) (Auto) % (1.0-10.0) Eosinophils (%) (Auto) % (0.0-3.0) Basophils (%) (Auto) % (0.0-2.0) Differential Total Cells Counted 100 Neutrophils % (Manual) 88 % (45-75) H Lymphocytes % (Manual) 3 % (20-45) L Monocytes % (Manual) 9 % (1-10) Eosinophils % (Manual) 0 % (0-3) Basophils % (Manual) 0 % (0-2) Band Neutrophils 0 % (0-8) Platelet Estimate Adequate Platelet Morphology Normal Hypochromasia 2+ Anisocytosis 1+ Sodium Level 136 mEQ/L (135-145) Potassium Level 4.4 mEQ/L (3.4-4.9) Chloride Level 97 mEQ/L (98-107) L Carbon Dioxide Level 27 mEQ/L (20-30) Anion Gap 12 (5-15) Blood Urea Nitrogen 17 mg/dL (7-23) Creatinine 0.5 mg/dL (0.7-1.2) L Estimat Glomerular Filtration Rate > 60 mL/min (>60) Glucose Level 130 mg/dL (74-106) H Calcium Level 8.8 mg/dL (8.6-10.2) Microbiology Date/Time Source Procedure Growth Status 11/06/16 01:45 Blood Blood Culture - Preliminary NO GROWTH AFTER 24 HOURS Resulted 11/06/16 01:40 Blood Blood Culture - Preliminary NO GROWTH AFTER 24 HOURS Resulted 11/05/16 14:00 Sputum Gram Stain - Final Resulted 11/05/16 14:00 Sputum Culture - Preliminary Gram Negative Bacillus 1 Resulted 11/06/16 05:55 Stool Clostridium difficile Toxin Assay - Final Complete 11/06/16 05:55 Urine,Clean Catch Urine Culture - Preliminary Resulted Objective HEAD AND NECK: No jugular venous distention, status post tracheostomy. LUNGS: Coarse rhonchi bilaterally. CARDIOVASCULAR: Tachycardic S1 and S2 with no gallop or murmur. ABDOMEN: Soft. Status post G-tube. EXTREMITIES: No pitting edema. OSWALD HILLS November 07, 2016 15:59
[2016-11-07 16:05] VITALS: BP 114/77
--- NOTE | 2016-11-07 18:45 | Internal Med Progress Note ---
Subjective Date of Service: November 07, 2016 Physician Name Verdin,Tadeo Attending Physician Steve Rader MD Current Medications Medications (Trade) Dose Ordered Sig/Shraddha Route PRN Reason Start Time Stop Time Status Last Admin Dose Admin Acetaminophen (Tylenol) 650 mg Q4H PRN ORAL fever>100.5 11/02/16 17:00 12/02/16 16:59 Acetaminophen 650 mg 650 mg Q4H PRN GT headache 11/03/16 08:00 12/03/16 07:59 11/03/16 07:58 Dextrose (Dextrose 50%) STAT PRN IV Hypoglycemia 11/02/16 17:00 12/02/16 16:59 Dextrose/Sodium Chloride 1,000 ml @ 75 mls/hr [id number] IV 11/05/16 16:00 12/05/16 15:59 11/07/16 18:00 Insulin Aspart (NovoLOG) start when feeding started Q6HR SUBQ 11/02/16 18:00 12/02/16 17:59 11/07/16 17:12 Lansoprazole (Prevacid) 30 mg DAILY GT 10/31/16 09:00 11/30/16 08:59 11/07/16 09:36 Levalbuterol HCl (Xopenex) 1.25 mg Q4H PRN HHN Bronchospasm 11/05/16 11:46 11/10/16 11:45 11/07/16 13:16 Lorazepam (Ativan 2mg/ml 1ml) 0.5 mg Q4H PRN IV For Anxiety 11/03/16 07:45 11/10/16 07:44 11/07/16 11:35 Meropenem/Sodium Chloride (Merrem/Sodium Chloride) 110 ml @ 220 mls/hr Q8HR IVPB 11/04/16 14:00 11/09/16 13:59 11/07/16 14:32 Metoclopramide HCl (Reglan) 10 mg THREE TIMES A DAY GT 10/24/16 19:00 11/23/16 18:59 11/07/16 17:11 Ondansetron HCl (Zofran) 4 mg Q6H PRN IVP Nausea & Vomiting 11/02/16 17:00 12/02/16 16:59 Polyethylene Glycol (Miralax) 17 gm DAILYPRN PRN GT Constipation 10/25/16 01:00 11/24/16 00:59 11/03/16 00:00 Vancomycin HCl (Vanco rx to dose) 1 ea DAILY PRN MISC Per rx protocol 11/04/16 12:30 12/04/16 12:29 Vancomycin HCl 125 mg 125 mg FOUR TIMES A DAY ORAL 11/05/16 13:00 11/12/16 12:59 11/07/16 17:11 Vancomycin HCl/ Dextrose (Vancomycin/D5W) 275 ml @ 183.708 mls/hr Q12HR@1100,2300 IVPB 11/06/16 23:00 11/11/16 22:59 11/07/16 10:43 Allergies: Coded Allergies: No Known Allergies (Unverified , 06/17/16) ROS Limited/Unobtainable: No Constitutional: Reports: chills, fever HEENT: Reports: no symptoms Cardiovascular: Reports: no symptoms Respiratory: Reports: no symptoms Gastrointestinal/Abdominal: Reports: no symptoms Genitourinary: Reports: no symptoms Neurologic/Psychiatric: Reports: no symptoms Subjective 66 YO M admitted with respiratory failure. JORDAN. Intubated with trach. Cover for Int Med-Dr Rader. Improving leukocytosis and tachycardia. Now colon and gastric masses. Await Repeat CT abd and pelvis. Objective Last Vital Signs Date Time Temp Pulse Resp B/P Pulse Ox O2 Delivery O2 Flow Rate FiO2 11/07/16 17:09 121 24 30 11/07/16 16:05 98.6 114/77 100 Mechanical Ventilator 11/06/16 10:35 10.0 Laboratory Tests Test 11/07/16 03:10 White Blood Count 37.8 K/UL (4.8-10.8) *H Red Blood Count 3.50 M/UL (4.70-6.10) L Hemoglobin 9.3 G/DL (14.2-18.0) L Hematocrit 30.1 % (42.0-52.0) L Mean Corpuscular Volume 86 FL (80-99) Mean Corpuscular Hemoglobin 26.5 PG (27.0-31.0) L Mean Corpuscular Hemoglobin Concent 30.7 G/DL (32.0-36.0) L Red Cell Distribution Width 14.6 % (11.6-14.8) Platelet Count 304 K/UL (150-450) # Mean Platelet Volume 7.8 FL (6.5-10.1) Neutrophils (%) (Auto) % (45.0-75.0) Lymphocytes (%) (Auto) % (20.0-45.0) Monocytes (%) (Auto) % (1.0-10.0) Eosinophils (%) (Auto) % (0.0-3.0) Basophils (%) (Auto) % (0.0-2.0) Differential Total Cells Counted 100 Neutrophils % (Manual) 88 % (45-75) H Lymphocytes % (Manual) 3 % (20-45) L Monocytes % (Manual) 9 % (1-10) Eosinophils % (Manual) 0 % (0-3) Basophils % (Manual) 0 % (0-2) Band Neutrophils 0 % (0-8) Platelet Estimate Adequate Platelet Morphology Normal Hypochromasia 2+ Anisocytosis 1+ Sodium Level 136 mEQ/L (135-145) Potassium Level 4.4 mEQ/L (3.4-4.9) Chloride Level 97 mEQ/L (98-107) L Carbon Dioxide Level 27 mEQ/L (20-30) Anion Gap 12 (5-15) Blood Urea Nitrogen 17 mg/dL (7-23) Creatinine 0.5 mg/dL (0.7-1.2) L Estimat Glomerular Filtration Rate > 60 mL/min (>60) Glucose Level 130 mg/dL (74-106) H Calcium Level 8.8 mg/dL (8.6-10.2) Microbiology Date/Time Source Procedure Growth Status 11/06/16 01:45 Blood Blood Culture - Preliminary NO GROWTH AFTER 24 HOURS Resulted 11/06/16 01:40 Blood Blood Culture - Preliminary NO GROWTH AFTER 24 HOURS Resulted 11/05/16 14:00 Sputum Gram Stain - Final Resulted 11/05/16 14:00 Sputum Culture - Preliminary Gram Negative Bacillus 1 Resulted 11/06/16 05:55 Stool Clostridium difficile Toxin Assay - Final Complete 11/06/16 05:55 Urine,Clean Catch Urine Culture - Preliminary Resulted Intake and Output 11/06/16 11/07/16 19:00 07:00 Intake Total 975 ml 1711.2500 ml Output Total 450 ml 450 ml Balance 525 ml 1261.2500 ml Free Water 300 ml 300 ml IV Total 675 ml 1411.2500 ml Output Urine Total 450 ml 450 ml # Bowel Movements 5 4 Objective General Appearance: moderate distress, thin EENT: PERRL/EOMI, normal ENT inspection Neck: non-tender, normal alignment, supple Cardiovascular: normal peripheral pulses, normal rate, regular rhythm, no gallop/murmur, no JVD Respiratory/Chest: Trach; Mech Vent; trach; respiratory distress, crackles/ rales, rhonchi - bilaterally, expiratory wheezing Abdomen: non tender, soft, no organomegaly, no mass, decreased bowel sounds Extremities: normal range of motion Skin: normal pigmentation, warm/dry Assessment/Plan Problem List: (1) Lung nodule (2) DVT (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 (3) Acute respiratory failure Assessment & Plan: S/P tracheostomy 10/03/16. Failed weaning trial. Cont vent per pulmonary (4) COPD exacerbation Assessment & Plan: Continue duoneb. Continue vent per pulmonary. (5) Pneumonia Assessment & Plan: New left basilar consolidation. Restart cefepime per ID (6) Leukocytosis Assessment & Plan: Improving. Await Culture results. Start meropenem and vanco per ID (7) Dysphagia Assessment & Plan: See GI consult- S/P PEG 10/04/16. (8) Hypoglycemia Assessment & Plan: D50 prn; decrease insulin sliding scale. (9) Dysuria Assessment & Plan: D/C garcia cath. (10) Severe sepsis Assessment & Plan: Start meropenem, and vanco ( IV and Oral) per ID. Await repeat CT abdomen and pelvis (11) Hypotension Assessment & Plan: Transfer to ICU if pressors are needed. (12) Gastric mass (13) Mass of colon Assessment & Plan: Repeat CT abd and pelvis per GI. Status: not improved TADEO VERDIN November 07, 2016 18:44
[2016-11-07 20:00] VITALS: BP 94/62
[2016-11-08] VITALS: BP 126/76
[2016-11-08] MEDS: Levalbuterol Inh UD 1.25mg/0.5ml HHN PRN (01:25)
[2016-11-08 01:49] LABS: ABG PCO2 42.3 mmHg (35.0-45.0)
[2016-11-08 01:50] LABS: ABG ALLEN TEST POSITIVE; ABG BASE EXCESS 2.8
[2016-11-08 04:00] VITALS: BP 103/79
[2016-11-08] MEDS: Meropenem 1 GM in NS 110 ML IVPB SCH ×3 (05:21→21:10)
[2016-11-08 05:26] LABS: MEAN CORPUSCULAR HEMOGLOBIN 26.2 PG (27.0-31.0); MEAN CORPUSCULAR HGB CONC 30.9 G/DL (32.0-36.0); MEAN CORPUSCULAR VOLUME 85 FL (80-99); MEAN PLATELET VOLUME 7.5 FL (6.5-10.1); PLATELET COUNT 309 K/UL (150-450); RED BLOOD COUNT 3.32 M/UL (4.70-6.10); RED CELL DISTRIBUTION WIDTH 14.4 % (11.6-14.8)
[2016-11-08 05:53] LABS: WHITE BLOOD COUNT 31.8 K/UL (4.8-10.8)
[2016-11-08 06:04] LABS: ANION GAP 14 (5-15); CALCIUM 8.6 mg/dL (8.6-10.2); CARBON DIOXIDE 25 mEQ/L (20-30); CHLORIDE 95 mEQ/L (98-107); CREATININE 0.6 mg/dL (0.7-1.2); GLOMERULAR FILTRATION RATE > 60 mL/min (>60); HEMOLYSIS 8; POTASSIUM 4.2 mEQ/L (3.4-4.9); SODIUM 134 mEQ/L (135-145)
[2016-11-08] MEDS: NovoLOG Insulin Flexpen SUBQ SCH ×4 (06:24→17:04)
[2016-11-08 07:58] VITALS: BP 94/75
[2016-11-08] MEDS: D5 1/2NS 1,000 ML IV SCH (08:02)
[2016-11-08] MEDS: Vancomycin oral 125mg/2.5ml ORAL SCH ×4 (08:04→21:10)
[2016-11-08] MEDS: Vancomycin 1gm/D5W 275ml IVPB SCH ×4 (10:18→22:43)
[2016-11-08 11:24] LABS: BAND NEUTROPHILS % (MANUAL) 0 % (0-8); BASOPHILS % (MANUAL) 0 % (0-2); EOSINOPHILS % (MANUAL) 0 % (0-3); LYMPHOCYTES % (MANUAL) 8 % (20-45); NEUTROPHILS % (MANUAL) 88 % (45-75); PLATELET ESTIMATE ADEQUATE; PLATELET MORPHOLOGY NORMAL; TOTAL CELLS COUNTED 100
[2016-11-08 11:25] LABS: ANISOCYTOSIS 1+; HYPOCHROMASIA 1+
[2016-11-08 12:00] VITALS: BP 93/66
--- NOTE | 2016-11-08 12:46 | Pulmonology Progress Note ---
Assessment/Plan Problems: (1) Severe sepsis (2) Abdominal distention (3) Respiratory failure (4) COPD exacerbation (5) Emphysema of lung (6) Colonic mass Assessment/Plan cxr yesterday showing increased pulmonary edema continue current vent setting, titrate fio2 to sat of 92% not tolerating weaning abx as per ID wbc decreasing, Subjective ROS Limited/Unobtainable: No Constitutional: Reports: no symptoms HEENT: Repors: no symptoms Respiratory: Reports: no symptoms Cardiovascular: Reports: no symptoms Allergies: Coded Allergies: No Known Allergies (Unverified , 06/17/16) Objective Last 24 Hour Vital Signs Date Time Temp Pulse Resp B/P Pulse Ox O2 Delivery O2 Flow Rate FiO2 11/08/16 12:00 97.9 117 18 93/66 100 Mechanical Ventilator 70 11/08/16 12:00 70 11/08/16 10:47 117 20 60 11/08/16 08:34 126 20 70 11/08/16 08:00 70 11/08/16 07:58 98.4 120 16 94/75 100 Mechanical Ventilator 70 11/08/16 07:50 125 11/08/16 06:49 134 19 70 11/08/16 05:25 128 26 30 11/08/16 04:00 117 11/08/16 04:00 40 11/08/16 04:00 99.1 121 16 103/79 99 Mechanical Ventilator 40 11/08/16 03:20 105 21 30 11/08/16 01:30 134 16 95 Mechanical Ventilator 30 11/08/16 01:24 136 16 94 Mechanical Ventilator 30 11/08/16 01:23 136 22 30 11/08/16 00:00 129 11/08/16 00:00 98.1 132 16 126/76 94 Mechanical Ventilator 30 11/08/16 00:00 30 11/07/16 23:45 98 23 30 11/07/16 20:37 125 27 30 11/07/16 20:14 132 25 30 11/07/16 20:00 98.4 133 16 94/62 94 Mechanical Ventilator 30 11/07/16 20:00 30 11/07/16 19:08 136 11/07/16 17:09 121 24 30 11/07/16 16:05 98.6 127 24 114/77 100 Mechanical Ventilator 30 11/07/16 16:00 30 11/07/16 15:13 121 11/07/16 15:01 132 28 30 11/07/16 13:27 127 16 99 Mechanical Ventilator 30 11/07/16 13:17 136 14 94 Mechanical Ventilator 30 11/07/16 13:15 136 14 30 11/07/16 13:04 136 Intake and Output 11/07/16 11/08/16 19:00 07:00 Intake Total 1085.000 ml 1320.000 ml Output Total 500 ml 450 ml Balance 585.000 ml 870.000 ml Free Water 100 ml IV Total 985.000 ml 1320.000 ml Output Urine Total 500 ml 450 ml # Bowel Movements 2 2 Objective Status: awake HEENT: atraumatic, normocephalic Lungs: clear, decreased breath sounds Heart: HR/BP stable Abdomen: soft, non-tender Extremities: no C/C/E, edema Microbiology Date/Time Source Procedure Growth Status 11/06/16 01:45 Blood Blood Culture - Preliminary NO GROWTH AFTER 48 HOURS Resulted 11/06/16 01:40 Blood Blood Culture - Preliminary NO GROWTH AFTER 48 HOURS Resulted 11/07/16 16:15 Sputum Gram Stain - Final Resulted 11/07/16 16:15 Sputum Sputum Culture Pending Resulted 11/05/16 14:00 Sputum Gram Stain - Final Resulted 11/05/16 14:00 Sputum Culture - Preliminary Gram Negative Bacillus 1 Resulted 11/06/16 05:55 Stool Clostridium difficile Toxin Assay - Final Complete 11/06/16 05:55 Urine,Clean Catch Urine Culture - Preliminary Gram Positive Cocci Yeast Species Resulted Laboratory Tests 11/08/16 01:30: Arterial Blood pH 7.429, Arterial Blood Partial Pressure CO2 42.3, Arterial Blood Partial Pressure O2 93.0, Arterial Blood HCO3 27.4H, Arterial Blood Oxygen Saturation 96.6, Arterial Blood Base Excess 2.8, Joseluis Test Positive 11/08/16 04:03: White Blood Count 31.8*H, Red Blood Count 3.32L, Hemoglobin 8.7L, Hematocrit 28.1L, Mean Corpuscular Volume 85, Mean Corpuscular Hemoglobin 26.2L, Mean Corpuscular Hemoglobin Concent 30.9L, Red Cell Distribution Width 14.4, Platelet Count 309, Mean Platelet Volume 7.5, Neutrophils (%) (Auto) , Lymphocytes (%) (Auto) , Monocytes (%) (Auto) , Eosinophils (%) (Auto) , Basophils (%) (Auto) , Differential Total Cells Counted 100, Neutrophils % ( Manual) 88H, Lymphocytes % (Manual) 8L, Monocytes % (Manual) 4, Eosinophils % ( Manual) 0, Basophils % (Manual) 0, Band Neutrophils 0, Platelet Estimate Adequate, Platelet Morphology Normal, Hypochromasia 1+, Anisocytosis 1+, Sodium Level 134L, Potassium Level 4.2, Chloride Level 95L, Carbon Dioxide Level 25, Anion Gap 14, Blood Urea Nitrogen 18, Creatinine 0.6L, Estimat Glomerular Filtration Rate > 60, Glucose Level 122H, Calcium Level 8.6 Current Medications Medications (Trade) Dose Ordered Sig/Shraddha Route PRN Reason Start Time Stop Time Status Last Admin Dose Admin Acetaminophen (Tylenol) 650 mg Q4H PRN ORAL fever>100.5 11/02/16 17:00 12/02/16 16:59 Acetaminophen 650 mg 650 mg Q4H PRN GT headache 11/03/16 08:00 12/03/16 07:59 11/03/16 07:58 Dextrose (Dextrose 50%) STAT PRN IV Hypoglycemia 11/02/16 17:00 12/02/16 16:59 Dextrose/Sodium Chloride 1,000 ml @ 75 mls/hr [id number] IV 11/05/16 16:00 12/05/16 15:59 11/08/16 08:02 Insulin Aspart (NovoLOG) start when feeding started Q6HR SUBQ 11/02/16 18:00 12/02/16 17:59 11/08/16 12:18 Lansoprazole (Prevacid) 30 mg DAILY GT 10/31/16 09:00 11/30/16 08:59 11/08/16 08:04 Levalbuterol HCl (Xopenex) 1.25 mg Q4H PRN HHN Bronchospasm 11/05/16 11:46 11/10/16 11:45 11/08/16 01:25 Lorazepam (Ativan 2mg/ml 1ml) 0.5 mg Q4H PRN IV For Anxiety 11/03/16 07:45 11/10/16 07:44 11/07/16 22:21 Meropenem/Sodium Chloride (Merrem/Sodium Chloride) 110 ml @ 220 mls/hr Q8HR IVPB 11/04/16 14:00 11/09/16 13:59 11/08/16 05:21 Metoclopramide HCl (Reglan) 10 mg THREE TIMES A DAY GT 10/24/16 19:00 11/23/16 18:59 11/08/16 12:18 Ondansetron HCl (Zofran) 4 mg Q6H PRN IVP Nausea & Vomiting 11/02/16 17:00 12/02/16 16:59 Polyethylene Glycol (Miralax) 17 gm DAILYPRN PRN GT Constipation 10/25/16 01:00 11/24/16 00:59 11/03/16 00:00 Vancomycin HCl (Vanco rx to dose) 1 ea DAILY PRN MISC Per rx protocol 11/04/16 12:30 12/04/16 12:29 Vancomycin HCl 125 mg 125 mg FOUR TIMES A DAY ORAL 11/05/16 13:00 11/12/16 12:59 11/08/16 12:18 Vancomycin HCl/ Dextrose (Vancomycin/D5W) 275 ml @ 183.708 mls/hr Q12HR@1100,2300 IVPB 11/06/16 23:00 11/11/16 22:59 11/08/16 10:18 REN WRIGHT November 08, 2016 12:46
--- NOTE | 2016-11-08 14:31 | Cardiac Electrophysiology PN ---
Assessment/Plan Assessment/Plan 1. Sinus tachycardia due to sepsis.Better on intravenous antibiotics per ID. 2. Severe pulmonary hypertension of 67 due to severe chronic obstructive pulmonary disease. 3. Ventilator-dependant respiratory failure, status post tracheostomy. 4. Dysphagia, status post percutaneous endoscopic gastrostomy placement. 5. Sepsis, on broad-spectrum intravenous antibiotics. 6. Chronic encephalopathy. 7. Polyps seen on CT in unprepared colon, follow up per Dr Yadira CHAVEZ RN Subjective Subjective Had sinus tach on tele.Alert and responsive. On Vent via tracheostomy with PEG. Non verbal. Objective Last 24 Hour Vital Signs Date Time Temp Pulse Resp B/P Pulse Ox O2 Delivery O2 Flow Rate FiO2 11/08/16 12:54 120 20 60 11/08/16 12:00 97.9 117 18 93/66 100 Mechanical Ventilator 70 11/08/16 12:00 70 11/08/16 11:51 114 11/08/16 10:47 117 20 60 11/08/16 08:34 126 20 70 11/08/16 08:00 70 11/08/16 07:58 98.4 120 16 94/75 100 Mechanical Ventilator 70 11/08/16 07:50 125 11/08/16 06:49 134 19 70 11/08/16 05:25 128 26 30 11/08/16 04:00 117 11/08/16 04:00 40 11/08/16 04:00 99.1 121 16 103/79 99 Mechanical Ventilator 40 11/08/16 03:20 105 21 30 11/08/16 01:30 134 16 95 Mechanical Ventilator 11/08/16 01:24 136 16 94 Mechanical Ventilator 11/08/16 01:23 136 22 30 11/08/16 00:00 129 11/08/16 00:00 98.1 132 16 126/76 94 Mechanical Ventilator 30 11/08/16 00:00 30 11/07/16 23:45 98 23 30 11/07/16 20:37 125 27 30 11/07/16 20:14 132 25 30 11/07/16 20:00 98.4 133 16 94/62 94 Mechanical Ventilator 30 11/07/16 20:00 30 11/07/16 19:08 136 11/07/16 17:09 121 24 30 11/07/16 16:05 98.6 127 24 114/77 100 Mechanical Ventilator 30 11/07/16 16:00 30 11/07/16 15:13 121 11/07/16 15:01 132 28 30 Intake and Output 11/07/16 11/08/16 19:00 07:00 Intake Total 1085.000 ml 1320.000 ml Output Total 500 ml 450 ml Balance 585.000 ml 870.000 ml Free Water 100 ml IV Total 985.000 ml 1320.000 ml Output Urine Total 500 ml 450 ml # Bowel Movements 2 2 Laboratory Tests Test 11/08/16 01:30 11/08/16 04:03 Arterial Blood pH 7.429 (7.350-7.450) Arterial Blood Partial Pressure CO2 42.3 mmHg (35.0-45.0) Arterial Blood Partial Pressure O2 93.0 mmHg (75.0-100.0) Arterial Blood HCO3 27.4 mmol/L (22.0-26.0) H Arterial Blood Oxygen Saturation 96.6 % (92.0-98.0) Arterial Blood Base Excess 2.8 Joseluis Test Positive White Blood Count 31.8 K/UL (4.8-10.8) *H Red Blood Count 3.32 M/UL (4.70-6.10) L Hemoglobin 8.7 G/DL (14.2-18.0) L Hematocrit 28.1 % (42.0-52.0) L Mean Corpuscular Volume 85 FL (80-99) Mean Corpuscular Hemoglobin 26.2 PG (27.0-31.0) L Mean Corpuscular Hemoglobin Concent 30.9 G/DL (32.0-36.0) L Red Cell Distribution Width 14.4 % (11.6-14.8) Platelet Count 309 K/UL (150-450) Mean Platelet Volume 7.5 FL (6.5-10.1) Neutrophils (%) (Auto) % (45.0-75.0) Lymphocytes (%) (Auto) % (20.0-45.0) Monocytes (%) (Auto) % (1.0-10.0) Eosinophils (%) (Auto) % (0.0-3.0) Basophils (%) (Auto) % (0.0-2.0) Differential Total Cells Counted 100 Neutrophils % (Manual) 88 % (45-75) H Lymphocytes % (Manual) 8 % (20-45) L Monocytes % (Manual) 4 % (1-10) Eosinophils % (Manual) 0 % (0-3) Basophils % (Manual) 0 % (0-2) Band Neutrophils 0 % (0-8) Platelet Estimate Adequate Platelet Morphology Normal Hypochromasia 1+ Anisocytosis 1+ Sodium Level 134 mEQ/L (135-145) L Potassium Level 4.2 mEQ/L (3.4-4.9) Chloride Level 95 mEQ/L (98-107) L Carbon Dioxide Level 25 mEQ/L (20-30) Anion Gap 14 (5-15) Blood Urea Nitrogen 18 mg/dL (7-23) Creatinine 0.6 mg/dL (0.7-1.2) L Estimat Glomerular Filtration Rate > 60 mL/min (>60) Glucose Level 122 mg/dL (74-106) H Calcium Level 8.6 mg/dL (8.6-10.2) Microbiology Date/Time Source Procedure Growth Status 11/06/16 01:45 Blood Blood Culture - Preliminary NO GROWTH AFTER 48 HOURS Resulted 11/06/16 01:40 Blood Blood Culture - Preliminary NO GROWTH AFTER 48 HOURS Resulted 11/07/16 16:15 Sputum Gram Stain - Final Resulted 11/07/16 16:15 Sputum Sputum Culture Pending Resulted 11/06/16 05:55 Stool Clostridium difficile Toxin Assay - Final Complete 11/06/16 05:55 Urine,Clean Catch Urine Culture - Preliminary Gram Positive Cocci Yeast Species Resulted Objective HEAD AND NECK: No jugular venous distention, status post tracheostomy. LUNGS: Coarse rhonchi bilaterally. CARDIOVASCULAR: Tachycardic S1 and S2 with no gallop or murmur. ABDOMEN: Soft. Status post G-tube. EXTREMITIES: No pitting edema. OSWALD HILLS November 08, 2016 14:31
[2016-11-08] MEDS ORDERED: D5 1/2NS 1000ml IV ONE (15:28)
[2016-11-08] MEDS ORDERED: Tubing IV Secondary IV ONE (15:28)
[2016-11-08] MEDS ORDERED: NS 275ml ONE (15:28)
[2016-11-08 16:00] VITALS: BP 106/75
--- NOTE | 2016-11-08 18:09 | Internal Med Progress Note ---
Subjective Date of Service: November 08, 2016 Physician Name Tadeo Verdin Attending Physician Steve Rader MD Current Medications Medications (Trade) Dose Ordered Sig/Shraddha Route PRN Reason Start Time Stop Time Status Last Admin Dose Admin Acetaminophen (Tylenol) 650 mg Q4H PRN ORAL fever>100.5 11/02/16 17:00 12/02/16 16:59 Acetaminophen 650 mg 650 mg Q4H PRN GT headache 11/03/16 08:00 12/03/16 07:59 11/03/16 07:58 Dextrose (Dextrose 50%) STAT PRN IV Hypoglycemia 11/02/16 17:00 12/02/16 16:59 Insulin Aspart (NovoLOG) start when feeding started Q6HR SUBQ 11/02/16 18:00 12/02/16 17:59 11/08/16 17:04 Lansoprazole (Prevacid) 30 mg DAILY GT 10/31/16 09:00 11/30/16 08:59 11/08/16 08:04 Levalbuterol HCl (Xopenex) 1.25 mg Q4H PRN HHN Bronchospasm 11/05/16 11:46 11/10/16 11:45 11/08/16 01:25 Lorazepam (Ativan 2mg/ml 1ml) 0.5 mg Q4H PRN IV For Anxiety 11/03/16 07:45 11/10/16 07:44 11/07/16 22:21 Meropenem/Sodium Chloride (Merrem/Sodium Chloride) 110 ml @ 220 mls/hr Q8HR IVPB 11/04/16 14:00 11/09/16 13:59 11/08/16 14:06 Metoclopramide HCl (Reglan) 10 mg THREE TIMES A DAY GT 10/24/16 19:00 11/23/16 18:59 11/08/16 17:01 Ondansetron HCl (Zofran) 4 mg Q6H PRN IVP Nausea & Vomiting 11/02/16 17:00 12/02/16 16:59 Polyethylene Glycol (Miralax) 17 gm DAILYPRN PRN GT Constipation 10/25/16 01:00 11/24/16 00:59 11/03/16 00:00 Vancomycin HCl (Vanco rx to dose) 1 ea DAILY PRN MISC Per rx protocol 11/04/16 12:30 12/04/16 12:29 Vancomycin HCl 125 mg 125 mg FOUR TIMES A DAY ORAL 11/05/16 13:00 11/12/16 12:59 11/08/16 17:01 Vancomycin HCl/ Dextrose (Vancomycin/D5W) 275 ml @ 183.708 mls/hr Q12HR@1100,2300 IVPB 11/06/16 23:00 11/11/16 22:59 11/08/16 10:18 Allergies: Coded Allergies: No Known Allergies (Unverified , 06/17/16) ROS Limited/Unobtainable: No Constitutional: Reports: no symptoms HEENT: Reports: no symptoms Cardiovascular: Reports: no symptoms Respiratory: Reports: shortness of breath Gastrointestinal/Abdominal: Reports: no symptoms Genitourinary: Reports: no symptoms Subjective 66 YO M admitted with respiratory failure. JORDAN. Intubated with trach. Cover for Int Med-Dr Rader. Improving leukocytosis and tachycardia. Now colon and gastric masses Objective Last Vital Signs Date Time Temp Pulse Resp B/P Pulse Ox O2 Delivery O2 Flow Rate FiO2 11/08/16 16:43 123 20 50 11/08/16 16:00 98.1 106/75 100 Mechanical Ventilator 11/06/16 10:35 10.0 Laboratory Tests Test 11/08/16 01:30 11/08/16 04:03 Arterial Blood pH 7.429 (7.350-7.450) Arterial Blood Partial Pressure CO2 42.3 mmHg (35.0-45.0) Arterial Blood Partial Pressure O2 93.0 mmHg (75.0-100.0) Arterial Blood HCO3 27.4 mmol/L (22.0-26.0) H Arterial Blood Oxygen Saturation 96.6 % (92.0-98.0) Arterial Blood Base Excess 2.8 Joseluis Test Positive White Blood Count 31.8 K/UL (4.8-10.8) *H Red Blood Count 3.32 M/UL (4.70-6.10) L Hemoglobin 8.7 G/DL (14.2-18.0) L Hematocrit 28.1 % (42.0-52.0) L Mean Corpuscular Volume 85 FL (80-99) Mean Corpuscular Hemoglobin 26.2 PG (27.0-31.0) L Mean Corpuscular Hemoglobin Concent 30.9 G/DL (32.0-36.0) L Red Cell Distribution Width 14.4 % (11.6-14.8) Platelet Count 309 K/UL (150-450) Mean Platelet Volume 7.5 FL (6.5-10.1) Neutrophils (%) (Auto) % (45.0-75.0) Lymphocytes (%) (Auto) % (20.0-45.0) Monocytes (%) (Auto) % (1.0-10.0) Eosinophils (%) (Auto) % (0.0-3.0) Basophils (%) (Auto) % (0.0-2.0) Differential Total Cells Counted 100 Neutrophils % (Manual) 88 % (45-75) H Lymphocytes % (Manual) 8 % (20-45) L Monocytes % (Manual) 4 % (1-10) Eosinophils % (Manual) 0 % (0-3) Basophils % (Manual) 0 % (0-2) Band Neutrophils 0 % (0-8) Platelet Estimate Adequate Platelet Morphology Normal Hypochromasia 1+ Anisocytosis 1+ Sodium Level 134 mEQ/L (135-145) L Potassium Level 4.2 mEQ/L (3.4-4.9) Chloride Level 95 mEQ/L (98-107) L Carbon Dioxide Level 25 mEQ/L (20-30) Anion Gap 14 (5-15) Blood Urea Nitrogen 18 mg/dL (7-23) Creatinine 0.6 mg/dL (0.7-1.2) L Estimat Glomerular Filtration Rate > 60 mL/min (>60) Glucose Level 122 mg/dL (74-106) H Calcium Level 8.6 mg/dL (8.6-10.2) Microbiology Date/Time Source Procedure Growth Status 11/06/16 01:45 Blood Blood Culture - Preliminary NO GROWTH AFTER 48 HOURS Resulted 11/06/16 01:40 Blood Blood Culture - Preliminary NO GROWTH AFTER 48 HOURS Resulted 11/07/16 16:15 Sputum Gram Stain - Final Resulted 11/07/16 16:15 Sputum Sputum Culture Pending Resulted 11/06/16 05:55 Stool Clostridium difficile Toxin Assay - Final Complete 11/06/16 05:55 Urine,Clean Catch Urine Culture - Preliminary Gram Positive Cocci Yeast Species Resulted Intake and Output 11/07/16 11/08/16 19:00 07:00 Intake Total 1085.000 ml 1320.000 ml Output Total 500 ml 450 ml Balance 585.000 ml 870.000 ml Free Water 100 ml IV Total 985.000 ml 1320.000 ml Output Urine Total 500 ml 450 ml # Bowel Movements 2 2 Objective General Appearance: moderate distress, thin EENT: PERRL/EOMI, normal ENT inspection Neck: non-tender, normal alignment, supple Cardiovascular: normal peripheral pulses, normal rate, regular rhythm, no gallop/murmur, no JVD Respiratory/Chest: Trach; Mech Vent; trach; respiratory distress, crackles/ rales, rhonchi - bilaterally, expiratory wheezing Abdomen: non tender, soft, no organomegaly, no mass, decreased bowel sounds Extremities: normal range of motion Skin: normal pigmentation, warm/dry Assessment/Plan Problem List: (1) Lung nodule (2) DVT (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 (3) Acute respiratory failure Assessment & Plan: S/P tracheostomy 10/03/16. Failed weaning trial. Cont vent per pulmonary (4) COPD exacerbation Assessment & Plan: Continue duoneb. Continue vent per pulmonary. (5) Pneumonia Assessment & Plan: New RLL consolidation. Gram neg rods; await ID and sensitivity. Vanco and meropenem per ID (6) Leukocytosis Assessment & Plan: Improving. Await Culture results. Start meropenem and vanco per ID (7) Dysphagia Assessment & Plan: See GI consult- S/P PEG 10/04/16. (8) Hypoglycemia Assessment & Plan: D50 prn; decrease insulin sliding scale. (9) Dysuria Assessment & Plan: D/C garcia cath. (10) Severe sepsis Assessment & Plan: Start meropenem, and vanco ( IV and Oral) per ID. (11) Hypotension Assessment & Plan: Transfer to ICU if pressors are needed. (12) Gastric mass (13) Mass of colon Assessment & Plan: Cecum and colon masses. See GI note. Status: not improved TADEO VERDIN November 08, 2016 18:09
--- NOTE | 2016-11-08 18:25 | General Progress Note ---
Assessment/Plan Assessment/Plan Assessment - Colon polyps/mass seen on CT - COPD - respiratory failure - s/p trach and PEG - dysphagia - h/o OB (+) - Anemia Recommendations - resume feeds since patient declining GI workup - check CEA - elevate HOB - GT care - follow labs Subjective Allergies: Coded Allergies: No Known Allergies (Unverified , 06/17/16) Subjective Feels same still declining colonoscopy no further input from family Objective Last 24 Hour Vital Signs Date Time Temp Pulse Resp B/P Pulse Ox O2 Delivery O2 Flow Rate FiO2 11/08/16 16:43 123 20 50 11/08/16 16:00 98.1 123 18 106/75 100 Mechanical Ventilator 50 11/08/16 16:00 50 11/08/16 15:09 114 11/08/16 14:48 117 20 60 11/08/16 12:54 120 20 60 11/08/16 12:00 97.9 117 18 93/66 100 Mechanical Ventilator 70 11/08/16 12:00 70 11/08/16 11:51 114 11/08/16 10:47 117 20 60 11/08/16 08:34 126 20 70 11/08/16 08:00 70 11/08/16 07:58 98.4 120 16 94/75 100 Mechanical Ventilator 70 11/08/16 07:50 125 11/08/16 06:49 134 19 70 11/08/16 05:25 128 26 30 11/08/16 04:00 117 11/08/16 04:00 40 11/08/16 04:00 99.1 121 16 103/79 99 Mechanical Ventilator 40 11/08/16 03:20 105 21 30 11/08/16 01:30 134 16 95 Mechanical Ventilator 30 11/08/16 01:24 136 16 94 Mechanical Ventilator 30 11/08/16 01:23 136 22 30 11/08/16 00:00 129 11/08/16 00:00 98.1 132 16 126/76 94 Mechanical Ventilator 30 11/08/16 00:00 30 11/07/16 23:45 98 23 30 11/07/16 20:37 125 27 30 11/07/16 20:14 132 25 30 11/07/16 20:00 98.4 133 16 94/62 94 Mechanical Ventilator 30 11/07/16 20:00 30 11/07/16 19:08 136 Intake and Output 11/07/16 11/08/16 19:00 07:00 Intake Total 1085.000 ml 1320.000 ml Output Total 500 ml 450 ml Balance 585.000 ml 870.000 ml Free Water 100 ml IV Total 985.000 ml 1320.000 ml Output Urine Total 500 ml 450 ml # Bowel Movements 2 2 Laboratory Tests 11/08/16 01:30: Arterial Blood pH 7.429, Arterial Blood Partial Pressure CO2 42.3, Arterial Blood Partial Pressure O2 93.0, Arterial Blood HCO3 27.4H, Arterial Blood Oxygen Saturation 96.6, Arterial Blood Base Excess 2.8, Joseluis Test Positive 11/08/16 04:03: White Blood Count 31.8*H, Red Blood Count 3.32L, Hemoglobin 8.7L, Hematocrit 28.1L, Mean Corpuscular Volume 85, Mean Corpuscular Hemoglobin 26.2L, Mean Corpuscular Hemoglobin Concent 30.9L, Red Cell Distribution Width 14.4, Platelet Count 309, Mean Platelet Volume 7.5, Neutrophils (%) (Auto) , Lymphocytes (%) (Auto) , Monocytes (%) (Auto) , Eosinophils (%) (Auto) , Basophils (%) (Auto) , Differential Total Cells Counted 100, Neutrophils % ( Manual) 88H, Lymphocytes % (Manual) 8L, Monocytes % (Manual) 4, Eosinophils % ( Manual) 0, Basophils % (Manual) 0, Band Neutrophils 0, Platelet Estimate Adequate, Platelet Morphology Normal, Hypochromasia 1+, Anisocytosis 1+, Sodium Level 134L, Potassium Level 4.2, Chloride Level 95L, Carbon Dioxide Level 25, Anion Gap 14, Blood Urea Nitrogen 18, Creatinine 0.6L, Estimat Glomerular Filtration Rate > 60, Glucose Level 122H, Calcium Level 8.6 Height (Feet): 6 Height (Inches): 2.00 Weight (Pounds): 126 Objective Elderly AA man NCAT (+) trach Coarse BS RRR soft NT abdomen, (+) GT responsive ROSEMARY BURROUGHS November 08, 2016 18:25
--- NOTE | 2016-11-08 18:57 | Infectious Diseases Prog Note ---
Assessment/Plan Assessment/Plan ASSESSMENT: 66 y/o male with: // VAP CT : Since previous exam of 2 days earlier, marked worsening of right lower lobe dense consolidation, consistent with rapidly progressing pneumonia. // COPD exacerbation - delayed SCx 4+ PSA SP Rx - CXR 09/27: Lungs are hyperinflated. No new infiltrates - negative: influenza // Leukocytosis - // Hypotension SP // Abd pain ?etio CDiff neg , LAC : Nl - Ct of Abd : 4.4 x 3 x 4.4 cm filling defect within the proximal ascending colon.Appearance is that of a polyp on a stalk. Size of this lesion raises concern for malignancy. // Ro C Diff Neg vs Isch colitis // Febrile low grade , SP // HIV and Hep B/C : neg // colon mass ro cancer , GI is following CT: Large cecal mass and other polypoid colonic masses, detailed previously , again demonstrated // - PEG 10/04 // Acute VDRF - intubated 09/20, 10/03 SP trach // Severe pulmonary HTN / grade I diastolic dysfunction / mod TR // Pulmonary nodules // Chronic RLE DVT // Tobacco abuse // [place] resident // Negative MRSA, VRE screens // NKDA // Full Code PLAN: - cont Merrem and Vanco d# 5/ 10 , , and oral Vanco d# 4 ( will cont for now despite neg C Diff ) ( 10/17 SP Ceftazidime d# 14 ) ( 10/13 SP Jairon nebs d# 14 ) ( 10/11 SP Flagyl d# 10 ) ( 10/04 SP oral Vanco d# 3 ) ( 09/24 SP amikacin, invanz d# 5 / 5 ) ( 09/21 SP IV vancomycin d# 2 ) - taper steroids per pulm - monitor CBC, temperatures - monitor BMP - monitor CXR - vent support, wean as tolerated - Monitor Cx ( SP , Ur, Bl ) Subjective Allergies: Coded Allergies: No Known Allergies (Unverified , 06/17/16) Subjective leukocytes improving Objective Vital Signs Last 24 Hour Vital Signs Date Time Temp Pulse Resp B/P Pulse Ox O2 Delivery O2 Flow Rate FiO2 11/08/16 16:43 123 20 50 11/08/16 16:00 98.1 123 18 106/75 100 Mechanical Ventilator 50 11/08/16 16:00 50 11/08/16 15:09 114 11/08/16 14:48 117 20 60 11/08/16 12:54 120 20 60 11/08/16 12:00 97.9 117 18 93/66 100 Mechanical Ventilator 70 11/08/16 12:00 70 11/08/16 11:51 114 11/08/16 10:47 117 20 60 11/08/16 08:34 126 20 70 11/08/16 08:00 70 11/08/16 07:58 98.4 120 16 94/75 100 Mechanical Ventilator 70 11/08/16 07:50 125 11/08/16 06:49 134 19 70 11/08/16 05:25 128 26 30 11/08/16 04:00 117 11/08/16 04:00 40 11/08/16 04:00 99.1 121 16 103/79 99 Mechanical Ventilator 40 11/08/16 03:20 105 21 30 11/08/16 01:30 134 16 95 Mechanical Ventilator 30 11/08/16 01:24 136 16 94 Mechanical Ventilator 30 11/08/16 01:23 136 22 30 11/08/16 00:00 129 11/08/16 00:00 98.1 132 16 126/76 94 Mechanical Ventilator 30 11/08/16 00:00 30 11/07/16 23:45 98 23 30 11/07/16 20:37 125 27 30 11/07/16 20:14 132 25 30 11/07/16 20:00 98.4 133 16 94/62 94 Mechanical Ventilator 30 11/07/16 20:00 30 11/07/16 19:08 136 Height (Feet): 6 Height (Inches): 2.00 Weight (Pounds): 126 HEENT: anicteric Respiratory/Chest: no respiratory distress Cardiovascular: normal rate Abdomen: normal bowel sounds Microbiology Date/Time Source Procedure Growth Status 11/06/16 01:45 Blood Blood Culture - Preliminary NO GROWTH AFTER 48 HOURS Resulted 11/06/16 01:40 Blood Blood Culture - Preliminary NO GROWTH AFTER 48 HOURS Resulted 11/07/16 16:15 Sputum Gram Stain - Final Resulted 11/07/16 16:15 Sputum Sputum Culture Pending Resulted 11/06/16 05:55 Stool Clostridium difficile Toxin Assay - Final Complete 11/06/16 05:55 Urine,Clean Catch Urine Culture - Preliminary Gram Positive Cocci Yeast Species Resulted Laboratory Tests Test 11/08/16 01:30 11/08/16 04:03 Arterial Blood pH 7.429 (7.350-7.450) Arterial Blood Partial Pressure CO2 42.3 mmHg (35.0-45.0) Arterial Blood Partial Pressure O2 93.0 mmHg (75.0-100.0) Arterial Blood HCO3 27.4 mmol/L (22.0-26.0) H Arterial Blood Oxygen Saturation 96.6 % (92.0-98.0) Arterial Blood Base Excess 2.8 Joseluis Test Positive White Blood Count 31.8 K/UL (4.8-10.8) *H Red Blood Count 3.32 M/UL (4.70-6.10) L Hemoglobin 8.7 G/DL (14.2-18.0) L Hematocrit 28.1 % (42.0-52.0) L Mean Corpuscular Volume 85 FL (80-99) Mean Corpuscular Hemoglobin 26.2 PG (27.0-31.0) L Mean Corpuscular Hemoglobin Concent 30.9 G/DL (32.0-36.0) L Red Cell Distribution Width 14.4 % (11.6-14.8) Platelet Count 309 K/UL (150-450) Mean Platelet Volume 7.5 FL (6.5-10.1) Neutrophils (%) (Auto) % (45.0-75.0) Lymphocytes (%) (Auto) % (20.0-45.0) Monocytes (%) (Auto) % (1.0-10.0) Eosinophils (%) (Auto) % (0.0-3.0) Basophils (%) (Auto) % (0.0-2.0) Differential Total Cells Counted 100 Neutrophils % (Manual) 88 % (45-75) H Lymphocytes % (Manual) 8 % (20-45) L Monocytes % (Manual) 4 % (1-10) Eosinophils % (Manual) 0 % (0-3) Basophils % (Manual) 0 % (0-2) Band Neutrophils 0 % (0-8) Platelet Estimate Adequate Platelet Morphology Normal Hypochromasia 1+ Anisocytosis 1+ Sodium Level 134 mEQ/L (135-145) L Potassium Level 4.2 mEQ/L (3.4-4.9) Chloride Level 95 mEQ/L (98-107) L Carbon Dioxide Level 25 mEQ/L (20-30) Anion Gap 14 (5-15) Blood Urea Nitrogen 18 mg/dL (7-23) Creatinine 0.6 mg/dL (0.7-1.2) L Estimat Glomerular Filtration Rate > 60 mL/min (>60) Glucose Level 122 mg/dL (74-106) H Calcium Level 8.6 mg/dL (8.6-10.2) Current Medications Medications (Trade) Dose Ordered Sig/Shraddha Route PRN Reason Start Time Stop Time Status Last Admin Dose Admin Acetaminophen (Tylenol) 650 mg Q4H PRN ORAL fever>100.5 11/02/16 17:00 12/02/16 16:59 Acetaminophen 650 mg 650 mg Q4H PRN GT headache 11/03/16 08:00 12/03/16 07:59 11/03/16 07:58 Dextrose (Dextrose 50%) STAT PRN IV Hypoglycemia 11/02/16 17:00 12/02/16 16:59 Insulin Aspart (NovoLOG) start when feeding started Q6HR SUBQ 11/02/16 18:00 12/02/16 17:59 11/08/16 17:04 Lansoprazole (Prevacid) 30 mg DAILY GT 10/31/16 09:00 11/30/16 08:59 11/08/16 08:04 Levalbuterol HCl (Xopenex) 1.25 mg Q4H PRN HHN Bronchospasm 11/05/16 11:46 11/10/16 11:45 11/08/16 01:25 Lorazepam (Ativan 2mg/ml 1ml) 0.5 mg Q4H PRN IV For Anxiety 11/03/16 07:45 11/10/16 07:44 11/07/16 22:21 Meropenem/Sodium Chloride (Merrem/Sodium Chloride) 110 ml @ 220 mls/hr Q8HR IVPB 11/04/16 14:00 11/09/16 13:59 11/08/16 14:06 Metoclopramide HCl (Reglan) 10 mg THREE TIMES A DAY GT 10/24/16 19:00 11/23/16 18:59 11/08/16 17:01 Ondansetron HCl (Zofran) 4 mg Q6H PRN IVP Nausea & Vomiting 11/02/16 17:00 12/02/16 16:59 Polyethylene Glycol (Miralax) 17 gm DAILYPRN PRN GT Constipation 10/25/16 01:00 11/24/16 00:59 11/03/16 00:00 Vancomycin HCl (Vanco rx to dose) 1 ea DAILY PRN MISC Per rx protocol 11/04/16 12:30 12/04/16 12:29 Vancomycin HCl 125 mg 125 mg FOUR TIMES A DAY ORAL 11/05/16 13:00 11/12/16 12:59 11/08/16 17:01 Vancomycin HCl/ Dextrose (Vancomycin/D5W) 275 ml @ 183.708 mls/hr Q12HR@1100,2300 IVPB 11/06/16 23:00 11/11/16 22:59 11/08/16 10:18 KIMBERLEE HINKLE M.D. November 08, 2016 18:57
[2016-11-08 23:55] VITALS: BP 97/64
[2016-11-09] MEDS: NovoLOG Insulin Flexpen SUBQ SCH ×4 (01:12→17:32)
[2016-11-09 04:00] VITALS: BP 101/54
[2016-11-09] MEDS: Levalbuterol Inh UD 1.25mg/0.5ml HHN PRN (04:10)
[2016-11-09] MEDS: Meropenem 1 GM in NS 110 ML IVPB SCH ×2 (06:02→22:45)
[2016-11-09 06:26] LABS: MEAN CORPUSCULAR HGB CONC 30.5 G/DL (32.0-36.0); MEAN CORPUSCULAR VOLUME 85 FL (80-99); MEAN PLATELET VOLUME 7.2 FL (6.5-10.1); PLATELET COUNT 345 K/UL (150-450); RED BLOOD COUNT 3.46 M/UL (4.70-6.10)
[2016-11-09 06:36] LABS: ALANINE AMINOTRANSFERASE 26 U/L (3-41); ALBUMIN/GLOBULIN RATIO 0.4 (1.0-2.7); ANION GAP 15 (5-15); ASPARTATE AMINO TRANSFERASE 28 U/L (5-40); CALCIUM 8.6 mg/dL (8.6-10.2); CARBON DIOXIDE 25 mEQ/L (20-30); CHLORIDE 94 mEQ/L (98-107); CREATININE 0.5 mg/dL (0.7-1.2); GLOMERULAR FILTRATION RATE > 60 mL/min (>60); HEMOLYSIS 12; MAGNESIUM 1.9 mg/dL (1.7-2.5); POTASSIUM 4.4 mEQ/L (3.4-4.9); SODIUM 134 mEQ/L (135-145); TOTAL PROTEIN 5.4 g/dL (6.6-8.7)
[2016-11-09 06:39] LABS: WHITE BLOOD COUNT 37.4 K/UL (4.8-10.8)
[2016-11-09 07:45] LABS: BILIRUBIN,DIRECT 0.5 mg/dL (0.1-0.3)
[2016-11-09 08:02] VITALS: BP 94/65
[2016-11-09] MEDS: Vancomycin oral 125mg/2.5ml ORAL SCH ×3 (08:22→17:31)
[2016-11-09] MEDS: LORazepam Inj 2mg/ml 1ml IV PRN ×2 (08:22→21:43)
--- NOTE | 2016-11-09 09:46 | Pulmonology Progress Note ---
Assessment/Plan Problems: (1) Severe sepsis (2) Abdominal distention (3) Respiratory failure (4) COPD exacerbation (5) Emphysema of lung (6) Colonic mass Assessment/Plan cxr yesterday showing increased pulmonary edema/ effusion wbc rising again afebrile continue current vent setting, titrate fio2 to sat of 92% not tolerating weaning abx as per ID Subjective ROS Limited/Unobtainable: No Constitutional: Reports: no symptoms Neurologic: Reports: no symptoms Psychiatric: Reports: no symptoms Allergies: Coded Allergies: No Known Allergies (Unverified , 06/17/16) Objective Last 24 Hour Vital Signs Date Time Temp Pulse Resp B/P Pulse Ox O2 Delivery O2 Flow Rate FiO2 11/09/16 08:47 119 20 70 11/09/16 08:03 130 11/09/16 08:02 97.9 127 16 94/65 98 Mechanical Ventilator 70 11/09/16 08:00 70 11/09/16 06:47 116 19 70 11/09/16 05:17 120 20 50 11/09/16 04:13 119 16 99 Mechanical Ventilator 30 11/09/16 04:00 116 11/09/16 04:00 50 11/09/16 04:00 97.3 116 16 101/54 98 Mechanical Ventilator 50 11/09/16 03:12 118 20 50 11/09/16 01:03 125 20 50 11/08/16 23:55 97.9 116 16 97/64 100 Mechanical Ventilator 50 11/08/16 23:55 50 11/08/16 23:55 116 11/08/16 23:28 115 18 50 11/08/16 21:56 128 20 50 11/08/16 20:00 50 11/08/16 20:00 132 11/08/16 19:14 130 18 50 11/08/16 16:43 123 20 50 11/08/16 16:00 98.1 123 18 106/75 100 Mechanical Ventilator 50 11/08/16 16:00 50 11/08/16 15:09 114 11/08/16 14:48 117 20 60 11/08/16 12:54 120 20 60 11/08/16 12:00 97.9 117 18 93/66 100 Mechanical Ventilator 70 11/08/16 12:00 70 11/08/16 11:51 114 11/08/16 10:47 117 20 60 Intake and Output 11/08/16 11/09/16 19:00 07:00 Intake Total 1340.000 ml 825 ml Output Total 350 ml 400 ml Balance 990.000 ml 425 ml Free Water 300 ml 250 ml IV Total 740.000 ml 385 ml Tube Feeding 300 ml 190 ml Output Urine Total 350 ml 400 ml Objective Status: awake HEENT: atraumatic, normocephalic Lungs: clear, decreased breath sounds Heart: HR/BP stable Abdomen: soft, non-tender Extremities: no C/C/E, edema Microbiology Date/Time Source Procedure Growth Status 11/07/16 16:15 Sputum Gram Stain - Final Resulted 11/07/16 16:15 Sputum Sputum Culture - Preliminary NO GROWTH AFTER 24 HOURS Resulted Laboratory Tests 11/09/16 03:40: White Blood Count 37.4*H, Red Blood Count 3.46L, Hemoglobin 9.0L, Hematocrit 29.5L, Mean Corpuscular Volume 85, Mean Corpuscular Hemoglobin 26.0L, Mean Corpuscular Hemoglobin Concent 30.5L, Red Cell Distribution Width 15.0H, Platelet Count 345, Mean Platelet Volume 7.2, Neutrophils (%) (Auto) , Lymphocytes (%) (Auto) , Monocytes (%) (Auto) , Eosinophils (%) (Auto) , Basophils (%) (Auto) , Neutrophils % (Manual) [Pending], Lymphocytes % (Manual) [Pending], Platelet Estimate [Pending], Platelet Morphology [Pending], Sodium Level 134L, Potassium Level 4.4, Chloride Level 94L, Carbon Dioxide Level 25, Anion Gap 15, Blood Urea Nitrogen 20, Creatinine 0.5L, Estimat Glomerular Filtration Rate > 60, Glucose Level 75, Calcium Level 8.6, Phosphorus Level 3.0 , Magnesium Level 1.9, Total Bilirubin 1.3H, Direct Bilirubin 0.5H, Aspartate Amino Transf (AST/SGOT) 28, Alanine Aminotransferase (ALT/SGPT) 26, Alkaline Phosphatase 132H, Total Protein 5.4L, Albumin 1.6L, Globulin 3.8, Albumin/ Globulin Ratio 0.4L, Carcinoembryonic Antigen 3.3H Current Medications Medications (Trade) Dose Ordered Sig/Shraddha Route PRN Reason Start Time Stop Time Status Last Admin Dose Admin Acetaminophen (Tylenol) 650 mg Q4H PRN ORAL fever>100.5 11/02/16 17:00 12/02/16 16:59 Acetaminophen 650 mg 650 mg Q4H PRN GT headache 11/03/16 08:00 12/03/16 07:59 11/03/16 07:58 Dextrose (Dextrose 50%) STAT PRN IV Hypoglycemia 11/02/16 17:00 12/02/16 16:59 Insulin Aspart (NovoLOG) start when feeding started Q6HR SUBQ 11/02/16 18:00 12/02/16 17:59 11/09/16 01:12 Lansoprazole (Prevacid) 30 mg DAILY GT 10/31/16 09:00 11/30/16 08:59 11/09/16 08:22 Levalbuterol HCl (Xopenex) 1.25 mg Q4H PRN HHN Bronchospasm 11/05/16 11:46 11/10/16 11:45 11/09/16 04:10 Lorazepam (Ativan 2mg/ml 1ml) 0.5 mg Q4H PRN IV For Anxiety 11/03/16 07:45 11/10/16 07:44 11/09/16 08:22 Meropenem/Sodium Chloride (Merrem/Sodium Chloride) 110 ml @ 220 mls/hr Q8HR IVPB 11/04/16 14:00 11/09/16 13:59 11/09/16 06:02 Metoclopramide HCl (Reglan) 10 mg THREE TIMES A DAY GT 10/24/16 19:00 11/23/16 18:59 11/09/16 08:22 Ondansetron HCl (Zofran) 4 mg Q6H PRN IVP Nausea & Vomiting 11/02/16 17:00 12/02/16 16:59 Polyethylene Glycol (Miralax) 17 gm DAILYPRN PRN GT Constipation 10/25/16 01:00 11/24/16 00:59 11/03/16 00:00 Vancomycin HCl (Vanco rx to dose) 1 ea DAILY PRN MISC Per rx protocol 11/04/16 12:30 12/04/16 12:29 Vancomycin HCl 125 mg 125 mg FOUR TIMES A DAY ORAL 11/05/16 13:00 11/12/16 12:59 11/09/16 08:22 Vancomycin HCl/ Dextrose (Vancomycin/D5W) 275 ml @ 183.708 mls/hr Q12HR@1100,2300 IVPB 11/06/16 23:00 11/11/16 22:59 11/08/16 22:43 REN WRIGHT November 09, 2016 09:46
[2016-11-09] MEDS: Vancomycin 1gm/D5W 275ml IVPB SCH ×2 (10:31)
[2016-11-09 10:35] LABS: ANISOCYTOSIS 1+; BAND NEUTROPHILS % (MANUAL) 8 % (0-8); BASOPHILS % (MANUAL) 0 % (0-2); EOSINOPHILS % (MANUAL) 1 % (0-3); HYPOCHROMASIA 1+; LYMPHOCYTES % (MANUAL) 11 % (20-45); MYELOCYTES % 3 % (0-0); NEUTROPHILS % (MANUAL) 75 % (45-75); PLATELET ESTIMATE ADEQUATE; PLATELET MORPHOLOGY NORMAL; TOTAL CELLS COUNTED 100
[2016-11-09 11:55] VITALS: BP 90/54
--- NOTE | 2016-11-09 14:19 | Internal Med Progress Note ---
Subjective Date of Service: November 09, 2016 Physician Name Tadeo Verdin Attending Physician Steve Rader MD Current Medications Medications (Trade) Dose Ordered Sig/Shraddha Route PRN Reason Start Time Stop Time Status Last Admin Dose Admin Acetaminophen (Tylenol) 650 mg Q4H PRN GT headache 11/03/16 08:00 12/03/16 07:59 11/03/16 07:58 Acetaminophen (Tylenol) 650 mg Q4H PRN ORAL fever>100.5 11/02/16 17:00 12/02/16 16:59 Dextrose (Dextrose 50%) STAT PRN IV Hypoglycemia 11/02/16 17:00 12/02/16 16:59 Insulin Aspart (NovoLOG) start when feeding started Q6HR SUBQ 11/02/16 18:00 12/02/16 17:59 11/09/16 12:01 Lansoprazole (Prevacid) 30 mg DAILY GT 10/31/16 09:00 11/30/16 08:59 11/09/16 08:22 Levalbuterol HCl (Xopenex) 1.25 mg Q4H PRN HHN Bronchospasm 11/05/16 11:46 11/10/16 11:45 11/09/16 04:10 Lorazepam (Ativan 2mg/ml 1ml) 0.5 mg Q4H PRN IV For Anxiety 11/03/16 07:45 11/10/16 07:44 11/09/16 08:22 Metoclopramide HCl (Reglan) 10 mg THREE TIMES A DAY GT 10/24/16 19:00 11/23/16 18:59 11/09/16 12:01 Ondansetron HCl (Zofran) 4 mg Q6H PRN IVP Nausea & Vomiting 11/02/16 17:00 12/02/16 16:59 Polyethylene Glycol (Miralax) 17 gm DAILYPRN PRN GT Constipation 10/25/16 01:00 11/24/16 00:59 11/03/16 00:00 Vancomycin HCl (Vanco rx to dose) 1 ea DAILY PRN MISC Per rx protocol 11/04/16 12:30 12/04/16 12:29 Vancomycin HCl 125 mg 125 mg FOUR TIMES A DAY ORAL 11/05/16 13:00 11/12/16 12:59 11/09/16 12:01 Vancomycin HCl/ Dextrose (Vancomycin/D5W) 275 ml @ 183.708 mls/hr Q12HR@1100,2300 IVPB 11/06/16 23:00 11/11/16 22:59 11/09/16 10:31 Allergies: Coded Allergies: No Known Allergies (Unverified , 06/17/16) ROS Limited/Unobtainable: No Constitutional: Reports: no symptoms HEENT: Reports: no symptoms Cardiovascular: Reports: no symptoms Respiratory: Reports: shortness of breath Gastrointestinal/Abdominal: Reports: no symptoms Genitourinary: Reports: no symptoms Neurologic/Psychiatric: Reports: no symptoms Subjective 66 YO M admitted with respiratory failure. JORDAN. Intubated with trach. Cover for Int Wilder-Dr Rader. Now colon and gastric masses Objective Last Vital Signs Date Time Temp Pulse Resp B/P Pulse Ox O2 Delivery O2 Flow Rate FiO2 11/09/16 12:39 113 18 70 11/09/16 11:55 99.8 90/54 100 Mechanical Ventilator 11/06/16 10:35 10.0 Laboratory Tests Test 11/09/16 03:40 White Blood Count 37.4 K/UL (4.8-10.8) *H Red Blood Count 3.46 M/UL (4.70-6.10) L Hemoglobin 9.0 G/DL (14.2-18.0) L Hematocrit 29.5 % (42.0-52.0) L Mean Corpuscular Volume 85 FL (80-99) Mean Corpuscular Hemoglobin 26.0 PG (27.0-31.0) L Mean Corpuscular Hemoglobin Concent 30.5 G/DL (32.0-36.0) L Red Cell Distribution Width 15.0 % (11.6-14.8) H Platelet Count 345 K/UL (150-450) Mean Platelet Volume 7.2 FL (6.5-10.1) Neutrophils (%) (Auto) % (45.0-75.0) Lymphocytes (%) (Auto) % (20.0-45.0) Monocytes (%) (Auto) % (1.0-10.0) Eosinophils (%) (Auto) % (0.0-3.0) Basophils (%) (Auto) % (0.0-2.0) Differential Total Cells Counted 100 Neutrophils % (Manual) 75 % (45-75) Lymphocytes % (Manual) 11 % (20-45) L Monocytes % (Manual) 2 % (1-10) Eosinophils % (Manual) 1 % (0-3) Basophils % (Manual) 0 % (0-2) Myelocytes % 3 % (0-0) H Band Neutrophils 8 % (0-8) Platelet Estimate Adequate Platelet Morphology Normal Hypochromasia 1+ Anisocytosis 1+ Sodium Level 134 mEQ/L (135-145) L Potassium Level 4.4 mEQ/L (3.4-4.9) Chloride Level 94 mEQ/L (98-107) L Carbon Dioxide Level 25 mEQ/L (20-30) Anion Gap 15 (5-15) Blood Urea Nitrogen 20 mg/dL (7-23) Creatinine 0.5 mg/dL (0.7-1.2) L Estimat Glomerular Filtration Rate > 60 mL/min (>60) Glucose Level 75 mg/dL (74-106) Calcium Level 8.6 mg/dL (8.6-10.2) Phosphorus Level 3.0 mg/dL (2.5-4.8) Magnesium Level 1.9 mg/dL (1.7-2.5) Total Bilirubin 1.3 mg/dL (0.0-1.2) H Direct Bilirubin 0.5 mg/dL (0.1-0.3) H Aspartate Amino Transf (AST/SGOT) 28 U/L (5-40) Alanine Aminotransferase (ALT/SGPT) 26 U/L (3-41) Alkaline Phosphatase 132 U/L (40-129) H Total Protein 5.4 g/dL (6.6-8.7) L Albumin 1.6 g/dL (3.5-5.2) L Globulin 3.8 g/dL Albumin/Globulin Ratio 0.4 (1.0-2.7) L Carcinoembryonic Antigen 3.3 ng/mL H Microbiology Date/Time Source Procedure Growth Status 11/07/16 16:15 Sputum Gram Stain - Final Resulted 11/07/16 16:15 Sputum Sputum Culture - Preliminary NO GROWTH AFTER 24 HOURS Resulted Intake and Output 11/08/16 11/09/16 19:00 07:00 Intake Total 1340.000 ml 825 ml Output Total 350 ml 400 ml Balance 990.000 ml 425 ml Free Water 300 ml 250 ml IV Total 740.000 ml 385 ml Tube Feeding 300 ml 190 ml Output Urine Total 350 ml 400 ml Objective General Appearance: moderate distress, thin EENT: PERRL/EOMI, normal ENT inspection Neck: non-tender, normal alignment, supple Cardiovascular: normal peripheral pulses, normal rate, regular rhythm, no gallop/murmur, no JVD Respiratory/Chest: Trach; Mech Vent; trach; respiratory distress, crackles/ rales, rhonchi - bilaterally, expiratory wheezing Abdomen: non tender, soft, no organomegaly, no mass, decreased bowel sounds Extremities: normal range of motion Skin: normal pigmentation, warm/dry Assessment/Plan Problem List: (1) Lung nodule (2) DVT (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 (3) Acute respiratory failure Assessment & Plan: S/P tracheostomy 10/03/16. Failed weaning trial. Cont vent per pulmonary (4) COPD exacerbation Assessment & Plan: Continue duoneb. Continue vent per pulmonary. (5) Pneumonia Assessment & Plan: MDR Acenitobacter. New RLL consolidation. Continue Vanco and meropenem per ID (6) Leukocytosis Assessment & Plan: Improving. Await Culture results. Start meropenem and vanco per ID (7) Dysphagia Assessment & Plan: See GI consult- S/P PEG 10/04/16. (8) Hypoglycemia Assessment & Plan: D50 prn; decrease insulin sliding scale. (9) Dysuria Assessment & Plan: D/C garcia cath. (10) Severe sepsis Assessment & Plan: Start meropenem, and vanco ( IV and Oral) per ID. (11) Hypotension Assessment & Plan: Transfer to ICU if pressors are needed. (12) Gastric mass (13) Mass of colon Assessment & Plan: Cecum and colon masses. See GI note. (14) UTI (urinary tract infection) due to Enterococcus Assessment & Plan: VRE. See ID note. Status: not improved TADEO VERDIN November 09, 2016 14:19
[2016-11-09] MEDS ORDERED: NS 275ml ONE (15:46)
[2016-11-09 15:56] VITALS: BP 92/57
--- NOTE | 2016-11-09 17:05 | General Progress Note ---
Assessment/Plan Assessment/Plan Assessment - Colon polyps/mass seen on CT - COPD - respiratory failure - s/p trach and PEG - dysphagia - h/o OB (+) - Anemia Recommendations - check CEA --> 3.3 - elevate HOB - GT care - follow labs Subjective Allergies: Coded Allergies: No Known Allergies (Unverified , 06/17/16) Subjective Feels same no family at bedside tolerating feeds Objective Last 24 Hour Vital Signs Date Time Temp Pulse Resp B/P Pulse Ox O2 Delivery O2 Flow Rate FiO2 11/09/16 16:00 70 11/09/16 15:56 98.4 110 16 92/57 100 Mechanical Ventilator 70 11/09/16 15:17 103 11/09/16 15:15 103 16 70 11/09/16 12:39 113 18 70 11/09/16 11:57 70 11/09/16 11:55 99.8 125 18 90/54 100 Mechanical Ventilator 70 11/09/16 11:44 120 11/09/16 10:53 100 16 70 11/09/16 08:47 119 20 70 11/09/16 08:03 130 11/09/16 08:02 97.9 127 16 94/65 98 Mechanical Ventilator 70 11/09/16 08:00 70 11/09/16 06:47 116 19 70 11/09/16 05:17 120 20 50 11/09/16 04:13 119 16 99 Mechanical Ventilator 30 11/09/16 04:00 116 11/09/16 04:00 50 11/09/16 04:00 97.3 116 16 101/54 98 Mechanical Ventilator 50 11/09/16 03:12 118 20 50 11/09/16 01:03 125 20 50 11/08/16 23:55 97.9 116 16 97/64 100 Mechanical Ventilator 50 11/08/16 23:55 50 11/08/16 23:55 116 11/08/16 23:28 115 18 50 11/08/16 21:56 128 20 50 11/08/16 20:00 50 11/08/16 20:00 132 11/08/16 19:14 130 18 50 Intake and Output 11/08/16 11/09/16 19:00 07:00 Intake Total 1340.000 ml 825 ml Output Total 350 ml 400 ml Balance 990.000 ml 425 ml Free Water 300 ml 250 ml IV Total 740.000 ml 385 ml Tube Feeding 300 ml 190 ml Output Urine Total 350 ml 400 ml Laboratory Tests 11/09/16 03:40: White Blood Count 37.4*H, Red Blood Count 3.46L, Hemoglobin 9.0L, Hematocrit 29.5L, Mean Corpuscular Volume 85, Mean Corpuscular Hemoglobin 26.0L, Mean Corpuscular Hemoglobin Concent 30.5L, Red Cell Distribution Width 15.0H, Platelet Count 345, Mean Platelet Volume 7.2, Neutrophils (%) (Auto) , Lymphocytes (%) (Auto) , Monocytes (%) (Auto) , Eosinophils (%) (Auto) , Basophils (%) (Auto) , Differential Total Cells Counted 100, Neutrophils % ( Manual) 75, Lymphocytes % (Manual) 11L, Monocytes % (Manual) 2, Eosinophils % ( Manual) 1, Basophils % (Manual) 0, Myelocytes % 3H, Band Neutrophils 8, Platelet Estimate Adequate, Platelet Morphology Normal, Hypochromasia 1+, Anisocytosis 1+, Sodium Level 134L, Potassium Level 4.4, Chloride Level 94L, Carbon Dioxide Level 25, Anion Gap 15, Blood Urea Nitrogen 20, Creatinine 0.5L, Estimat Glomerular Filtration Rate > 60, Glucose Level 75, Calcium Level 8.6, Phosphorus Level 3.0, Magnesium Level 1.9, Total Bilirubin 1.3H, Direct Bilirubin 0.5H, Aspartate Amino Transf (AST/SGOT) 28, Alanine Aminotransferase ( ALT/SGPT) 26, Alkaline Phosphatase 132H, Total Protein 5.4L, Albumin 1.6L, Globulin 3.8, Albumin/Globulin Ratio 0.4L, Carcinoembryonic Antigen 3.3H Height (Feet): 6 Height (Inches): 2.00 Weight (Pounds): 126 Objective Elderly AA man NCAT (+) trach Coarse BS RRR soft NT abdomen, (+) GT responsive ROSEMARY BURROUGHS November 09, 2016 17:05
--- NOTE | 2016-11-09 17:27 | Cardiac Electrophysiology PN ---
Assessment/Plan Assessment/Plan 1. Sinus tachycardia due to sepsis.Better on intravenous antibiotics per ID. 2. Severe pulmonary hypertension of 66 due to severe chronic obstructive pulmonary disease. 3. Ventilator-dependant respiratory failure, status post tracheostomy. 4. Dysphagia, status post percutaneous endoscopic gastrostomy placement. 5. Sepsis, on broad-spectrum intravenous antibiotics. 6. Chronic encephalopathy. 7. Polyps seen on CT in unprepared colon, follow up per Dr May 8. Intermittent low BP, ? due to sepsis.. Give NS 250 bolus.Already on Abx. DW RN Subjective Subjective Alert and responsive. On Vent via tracheostomy with PEG. Non verbal.RN at bedside. BP down to low 90s. Objective Last 24 Hour Vital Signs Date Time Temp Pulse Resp B/P Pulse Ox O2 Delivery O2 Flow Rate FiO2 11/09/16 17:03 109 19 60 11/09/16 16:00 70 11/09/16 15:56 98.4 110 16 92/57 100 Mechanical Ventilator 70 11/09/16 15:17 103 11/09/16 15:15 103 16 70 11/09/16 12:39 113 18 70 11/09/16 11:57 70 11/09/16 11:55 99.8 125 18 90/54 100 Mechanical Ventilator 70 11/09/16 11:44 120 11/09/16 10:53 100 16 70 11/09/16 08:47 119 20 70 11/09/16 08:03 130 11/09/16 08:02 97.9 127 16 94/65 98 Mechanical Ventilator 70 11/09/16 08:00 70 11/09/16 06:47 116 19 70 11/09/16 05:17 120 20 50 11/09/16 04:13 119 16 99 Mechanical Ventilator 30 11/09/16 04:00 116 11/09/16 04:00 50 11/09/16 04:00 97.3 116 16 101/54 98 Mechanical Ventilator 50 11/09/16 03:12 118 20 50 11/09/16 01:03 125 20 50 11/08/16 23:55 97.9 116 16 97/64 100 Mechanical Ventilator 50 11/08/16 23:55 50 11/08/16 23:55 116 11/08/16 23:28 115 18 50 11/08/16 21:56 128 20 50 11/08/16 20:00 50 11/08/16 20:00 132 11/08/16 19:14 130 18 50 Intake and Output 11/08/16 11/09/16 19:00 07:00 Intake Total 1340.000 ml 825 ml Output Total 350 ml 400 ml Balance 990.000 ml 425 ml Free Water 300 ml 250 ml IV Total 740.000 ml 385 ml Tube Feeding 300 ml 190 ml Output Urine Total 350 ml 400 ml Laboratory Tests Test 11/09/16 03:40 White Blood Count 37.4 K/UL (4.8-10.8) *H Red Blood Count 3.46 M/UL (4.70-6.10) L Hemoglobin 9.0 G/DL (14.2-18.0) L Hematocrit 29.5 % (42.0-52.0) L Mean Corpuscular Volume 85 FL (80-99) Mean Corpuscular Hemoglobin 26.0 PG (27.0-31.0) L Mean Corpuscular Hemoglobin Concent 30.5 G/DL (32.0-36.0) L Red Cell Distribution Width 15.0 % (11.6-14.8) H Platelet Count 345 K/UL (150-450) Mean Platelet Volume 7.2 FL (6.5-10.1) Neutrophils (%) (Auto) % (45.0-75.0) Lymphocytes (%) (Auto) % (20.0-45.0) Monocytes (%) (Auto) % (1.0-10.0) Eosinophils (%) (Auto) % (0.0-3.0) Basophils (%) (Auto) % (0.0-2.0) Differential Total Cells Counted 100 Neutrophils % (Manual) 75 % (45-75) Lymphocytes % (Manual) 11 % (20-45) L Monocytes % (Manual) 2 % (1-10) Eosinophils % (Manual) 1 % (0-3) Basophils % (Manual) 0 % (0-2) Myelocytes % 3 % (0-0) H Band Neutrophils 8 % (0-8) Platelet Estimate Adequate Platelet Morphology Normal Hypochromasia 1+ Anisocytosis 1+ Sodium Level 134 mEQ/L (135-145) L Potassium Level 4.4 mEQ/L (3.4-4.9) Chloride Level 94 mEQ/L (98-107) L Carbon Dioxide Level 25 mEQ/L (20-30) Anion Gap 15 (5-15) Blood Urea Nitrogen 20 mg/dL (7-23) Creatinine 0.5 mg/dL (0.7-1.2) L Estimat Glomerular Filtration Rate > 60 mL/min (>60) Glucose Level 75 mg/dL (74-106) Calcium Level 8.6 mg/dL (8.6-10.2) Phosphorus Level 3.0 mg/dL (2.5-4.8) Magnesium Level 1.9 mg/dL (1.7-2.5) Total Bilirubin 1.3 mg/dL (0.0-1.2) H Direct Bilirubin 0.5 mg/dL (0.1-0.3) H Aspartate Amino Transf (AST/SGOT) 28 U/L (5-40) Alanine Aminotransferase (ALT/SGPT) 26 U/L (3-41) Alkaline Phosphatase 132 U/L (40-129) H Total Protein 5.4 g/dL (6.6-8.7) L Albumin 1.6 g/dL (3.5-5.2) L Globulin 3.8 g/dL Albumin/Globulin Ratio 0.4 (1.0-2.7) L Carcinoembryonic Antigen 3.3 ng/mL H Microbiology Date/Time Source Procedure Growth Status 11/07/16 16:15 Sputum Gram Stain - Final Resulted 11/07/16 16:15 Sputum Sputum Culture - Preliminary NO GROWTH AFTER 24 HOURS Resulted Objective HEAD AND NECK: No jugular venous distention, tracheostomy intact. LUNGS: Coarse rhonchi bilaterally. CARDIOVASCULAR: Tachycardic S1 and S2 with no gallop or murmur. ABDOMEN: Soft. Status post G-tube. EXTREMITIES: No pitting edema. OSWALD HILLS November 09, 2016 17:27
--- NOTE | 2016-11-09 18:10 | Infectious Diseases Prog Note ---
Assessment/Plan Assessment/Plan ASSESSMENT: 66 y/o male with: // VAP SCx: MDR ACB CT : Since previous exam of 2 days earlier, marked worsening of right lower lobe dense consolidation, consistent with rapidly progressing pneumonia. // UCx yeast and VRE // COPD exacerbation - delayed SCx 4+ PSA SP Rx - CXR 09/27: Lungs are hyperinflated. No new infiltrates - negative: influenza // Leukocytosis - // Hypotension SP // Abd pain ?etio CDiff neg , LAC : Nl - Ct of Abd : 4.4 x 3 x 4.4 cm filling defect within the proximal ascending colon.Appearance is that of a polyp on a stalk. Size of this lesion raises concern for malignancy. // Ro C Diff Neg vs Isch colitis // Febrile low grade , SP // HIV and Hep B/C : neg // colon mass ro cancer , GI is following CT: Large cecal mass and other polypoid colonic masses, detailed previously , again demonstrated // - PEG 10/04 // Acute VDRF - intubated 09/20, 10/03 SP trach // Severe pulmonary HTN / grade I diastolic dysfunction / mod TR // Pulmonary nodules // Chronic RLE DVT // Tobacco abuse // [facility] resident // Negative MRSA, VRE screens // NKDA // Full Code PLAN: - cont Merrem and add Colistin INH , Zyvox and Diflucan d# 1 , DC Vanco d# 6 / 10 and oral Vanco d# 5, ( 10/17 SP Ceftazidime d# 14 ) ( 10/13 SP Jairon nebs d# 14 ) ( 10/11 SP Flagyl d# 10 ) ( 10/04 SP oral Vanco d# 3 ) ( 09/24 SP amikacin, invanz d# 5 / 5 ) ( 09/21 SP IV vancomycin d# 2 ) - taper steroids per pulm - monitor CBC, temperatures - monitor BMP - monitor CXR - vent support, wean as tolerated DW PCP Subjective Allergies: Coded Allergies: No Known Allergies (Unverified , 06/17/16) Subjective leukocytes worsen , multiple +ve UCx and Sputum cx back Objective Vital Signs Last 24 Hour Vital Signs Date Time Temp Pulse Resp B/P Pulse Ox O2 Delivery O2 Flow Rate FiO2 11/09/16 17:03 109 19 60 11/09/16 16:00 70 11/09/16 15:56 98.4 110 16 92/57 100 Mechanical Ventilator 70 11/09/16 15:17 103 11/09/16 15:15 103 16 70 11/09/16 12:39 113 18 70 11/09/16 11:57 70 11/09/16 11:55 99.8 125 18 90/54 100 Mechanical Ventilator 70 11/09/16 11:44 120 11/09/16 10:53 100 16 70 11/09/16 08:47 119 20 70 11/09/16 08:03 130 11/09/16 08:02 97.9 127 16 94/65 98 Mechanical Ventilator 70 11/09/16 08:00 70 11/09/16 06:47 116 19 70 11/09/16 05:17 120 20 50 11/09/16 04:13 119 16 99 Mechanical Ventilator 30 11/09/16 04:00 116 11/09/16 04:00 50 11/09/16 04:00 97.3 116 16 101/54 98 Mechanical Ventilator 50 11/09/16 03:12 118 20 50 11/09/16 01:03 125 20 50 11/08/16 23:55 97.9 116 16 97/64 100 Mechanical Ventilator 50 11/08/16 23:55 50 11/08/16 23:55 116 11/08/16 23:28 115 18 50 11/08/16 21:56 128 20 50 11/08/16 20:00 50 11/08/16 20:00 132 11/08/16 19:14 130 18 50 Height (Feet): 6 Height (Inches): 2.00 Weight (Pounds): 126 HEENT: atraumatic Respiratory/Chest: respiratory distress Cardiovascular: no gallop/murmur Abdomen: non distended Microbiology Date/Time Source Procedure Growth Status 11/07/16 16:15 Sputum Gram Stain - Final Resulted 11/07/16 16:15 Sputum Sputum Culture - Preliminary NO GROWTH AFTER 24 HOURS Resulted Laboratory Tests Test 11/09/16 03:40 White Blood Count 37.4 K/UL (4.8-10.8) *H Red Blood Count 3.46 M/UL (4.70-6.10) L Hemoglobin 9.0 G/DL (14.2-18.0) L Hematocrit 29.5 % (42.0-52.0) L Mean Corpuscular Volume 85 FL (80-99) Mean Corpuscular Hemoglobin 26.0 PG (27.0-31.0) L Mean Corpuscular Hemoglobin Concent 30.5 G/DL (32.0-36.0) L Red Cell Distribution Width 15.0 % (11.6-14.8) H Platelet Count 345 K/UL (150-450) Mean Platelet Volume 7.2 FL (6.5-10.1) Neutrophils (%) (Auto) % (45.0-75.0) Lymphocytes (%) (Auto) % (20.0-45.0) Monocytes (%) (Auto) % (1.0-10.0) Eosinophils (%) (Auto) % (0.0-3.0) Basophils (%) (Auto) % (0.0-2.0) Differential Total Cells Counted 100 Neutrophils % (Manual) 75 % (45-75) Lymphocytes % (Manual) 11 % (20-45) L Monocytes % (Manual) 2 % (1-10) Eosinophils % (Manual) 1 % (0-3) Basophils % (Manual) 0 % (0-2) Myelocytes % 3 % (0-0) H Band Neutrophils 8 % (0-8) Platelet Estimate Adequate Platelet Morphology Normal Hypochromasia 1+ Anisocytosis 1+ Sodium Level 134 mEQ/L (135-145) L Potassium Level 4.4 mEQ/L (3.4-4.9) Chloride Level 94 mEQ/L (98-107) L Carbon Dioxide Level 25 mEQ/L (20-30) Anion Gap 15 (5-15) Blood Urea Nitrogen 20 mg/dL (7-23) Creatinine 0.5 mg/dL (0.7-1.2) L Estimat Glomerular Filtration Rate > 60 mL/min (>60) Glucose Level 75 mg/dL (74-106) Calcium Level 8.6 mg/dL (8.6-10.2) Phosphorus Level 3.0 mg/dL (2.5-4.8) Magnesium Level 1.9 mg/dL (1.7-2.5) Total Bilirubin 1.3 mg/dL (0.0-1.2) H Direct Bilirubin 0.5 mg/dL (0.1-0.3) H Aspartate Amino Transf (AST/SGOT) 28 U/L (5-40) Alanine Aminotransferase (ALT/SGPT) 26 U/L (3-41) Alkaline Phosphatase 132 U/L (40-129) H Total Protein 5.4 g/dL (6.6-8.7) L Albumin 1.6 g/dL (3.5-5.2) L Globulin 3.8 g/dL Albumin/Globulin Ratio 0.4 (1.0-2.7) L Carcinoembryonic Antigen 3.3 ng/mL H Current Medications Medications (Trade) Dose Ordered Sig/Shraddha Route PRN Reason Start Time Stop Time Status Last Admin Dose Admin Acetaminophen (Tylenol) 650 mg Q4H PRN GT headache 11/03/16 08:00 12/03/16 07:59 11/03/16 07:58 Acetaminophen (Tylenol) 650 mg Q4H PRN ORAL fever>100.5 11/02/16 17:00 12/02/16 16:59 Dextrose (Dextrose 50%) STAT PRN IV Hypoglycemia 11/02/16 17:00 12/02/16 16:59 Insulin Aspart (NovoLOG) start when feeding started Q6HR SUBQ 11/02/16 18:00 12/02/16 17:59 11/09/16 17:32 Lansoprazole (Prevacid) 30 mg DAILY GT 10/31/16 09:00 11/30/16 08:59 11/09/16 08:22 Levalbuterol HCl (Xopenex) 1.25 mg Q4H PRN HHN Bronchospasm 11/05/16 11:46 11/10/16 11:45 11/09/16 04:10 Lorazepam (Ativan 2mg/ml 1ml) 0.5 mg Q4H PRN IV For Anxiety 11/03/16 07:45 11/10/16 07:44 11/09/16 08:22 Meropenem 1 gm/ Sodium Chloride 110 ml @ 220 mls/hr Q8HR IVPB 11/09/16 22:00 11/12/16 21:59 Metoclopramide HCl (Reglan) 10 mg THREE TIMES A DAY GT 10/24/16 19:00 11/23/16 18:59 11/09/16 17:31 Ondansetron HCl (Zofran) 4 mg Q6H PRN IVP Nausea & Vomiting 11/02/16 17:00 12/02/16 16:59 Polyethylene Glycol (Miralax) 17 gm DAILYPRN PRN GT Constipation 10/25/16 01:00 11/24/16 00:59 11/03/16 00:00 Sodium Chloride (NS) 500 ml @ 999 mls/hr PRN PRN IVPB For hypotension 11/09/16 17:15 12/09/16 17:14 Vancomycin HCl (Vanco rx to dose) 1 ea DAILY PRN MISC Per rx protocol 11/04/16 12:30 12/04/16 12:29 Vancomycin HCl 125 mg 125 mg FOUR TIMES A DAY ORAL 11/05/16 13:00 11/12/16 12:59 11/09/16 17:31 Vancomycin HCl 1 gm/Dextrose 275 ml @ 183.708 mls/hr Q12HR@1100,2300 IVPB 11/06/16 23:00 11/11/16 22:59 11/09/16 10:31 KIMBERLEE HINKLE M.D. November 09, 2016 18:10
[2016-11-09 20:00] VITALS: BP 109/60
[2016-11-10] VITALS (11 sets, daily range): BP systolic 64–117; BP diastolic 39–80
[2016-11-10] MEDS: NovoLOG Insulin Flexpen SUBQ SCH ×4 (00:09→17:34)
[2016-11-10] MEDS: Colistin for inhalation INH SCH ×3 (01:18→20:54)
[2016-11-10] MEDS: Meropenem 1 GM in NS 110 ML IVPB SCH ×3 (05:32→22:00)
[2016-11-10 07:01] LABS: MEAN CORPUSCULAR HEMOGLOBIN 26.4 PG (27.0-31.0); MEAN CORPUSCULAR HGB CONC 30.5 G/DL (32.0-36.0); MEAN CORPUSCULAR VOLUME 87 FL (80-99); PLATELET COUNT 410 K/UL (150-450); RED BLOOD COUNT 3.37 M/UL (4.70-6.10); RED CELL DISTRIBUTION WIDTH 15.1 % (11.6-14.8)
[2016-11-10 07:26] LABS: ALANINE AMINOTRANSFERASE 34 U/L (3-41); ALBUMIN/GLOBULIN RATIO 0.4 (1.0-2.7); ANION GAP 14 (5-15); ASPARTATE AMINO TRANSFERASE 28 U/L (5-40); CALCIUM 8.9 mg/dL (8.6-10.2); CARBON DIOXIDE 27 mEQ/L (20-30); CHLORIDE 94 mEQ/L (98-107); CREATININE 0.7 mg/dL (0.7-1.2); GLOMERULAR FILTRATION RATE > 60 mL/min (>60); HEMOLYSIS 1; MAGNESIUM 2.2 mg/dL (1.7-2.5); PHOSPHORUS 3.4 mg/dL (2.5-4.8); POTASSIUM 4.6 mEQ/L (3.4-4.9); SODIUM 135 mEQ/L (135-145); TOTAL PROTEIN 5.5 g/dL (6.6-8.7)
[2016-11-10 07:45] LABS: WHITE BLOOD COUNT 58.5 K/UL (4.8-10.8)
[2016-11-10] MEDS: Acetaminophen 650mg/20.3ml GT PRN (08:37)
--- NOTE | 2016-11-10 08:44 | Infectious Diseases Prog Note ---
Assessment/Plan Assessment/Plan A: Pneumonia worsening Leukemoid reaction UTI COPD VDRF Pulmonary HPN Cecal/ colon mass P: Continue Merrem ,Colistin INH , Zyvox and Diflucan d# 2 , repeat CXR Subjective ROS Limited/Unobtainable: Yes Constitutional: Reports: fever, other - fgep=086.3 Allergies: Coded Allergies: No Known Allergies (Unverified , 06/17/16) Objective Vital Signs Last 24 Hour Vital Signs Date Time Temp Pulse Resp B/P Pulse Ox O2 Delivery O2 Flow Rate FiO2 11/10/16 08:09 60 11/10/16 08:09 119 11/10/16 07:21 131 15 50 11/10/16 05:13 134 16 60 11/10/16 04:00 60 11/10/16 04:00 97.9 131 24 109/74 98 Mechanical Ventilator 60 11/10/16 04:00 138 11/10/16 03:14 141 17 60 11/10/16 01:27 131 16 98 Mechanical Ventilator 60 11/10/16 01:18 132 17 98 Mechanical Ventilator 60 11/10/16 00:38 135 17 60 11/10/16 00:00 50 11/10/16 00:00 97.5 134 18 117/77 97 Mechanical Ventilator 50 11/10/16 00:00 136 11/10/16 00:00 136 11/10/16 00:00 97.5 36 11/09/16 22:50 140 17 50 11/09/16 20:57 139 17 50 11/09/16 20:00 98.0 135 16 109/60 100 Mechanical Ventilator 70 11/09/16 20:00 50 11/09/16 20:00 130 11/09/16 19:06 134 20 60 11/09/16 17:03 109 19 60 11/09/16 16:00 70 11/09/16 15:56 98.4 110 16 92/57 100 Mechanical Ventilator 70 11/09/16 15:17 103 11/09/16 15:15 103 16 70 11/09/16 12:39 113 18 70 11/09/16 11:57 70 11/09/16 11:55 99.8 125 18 90/54 100 Mechanical Ventilator 70 11/09/16 11:44 120 11/09/16 10:53 100 16 70 11/09/16 08:47 119 20 70 Height (Feet): 6 Height (Inches): 2.00 Weight (Pounds): 126 HEENT: status post trach Respiratory/Chest: lungs clear Cardiovascular: tachycardia Abdomen: soft, non tender Extremities: no edema Neurologic/Psychiatric: other - opens eyes Microbiology Date/Time Source Procedure Growth Status 11/07/16 16:15 Sputum Gram Stain - Final Resulted 11/07/16 16:15 Sputum Culture - Preliminary Gram Negative Bacillus 1 Resulted Laboratory Tests Test 11/10/16 04:25 White Blood Count 58.5 K/UL (4.8-10.8) #*H Red Blood Count 3.37 M/UL (4.70-6.10) L Hemoglobin 8.9 G/DL (14.2-18.0) L Hematocrit 29.1 % (42.0-52.0) L Mean Corpuscular Volume 87 FL (80-99) Mean Corpuscular Hemoglobin 26.4 PG (27.0-31.0) L Mean Corpuscular Hemoglobin Concent 30.5 G/DL (32.0-36.0) L Red Cell Distribution Width 15.1 % (11.6-14.8) H Platelet Count 410 K/UL (150-450) Mean Platelet Volume 7.0 FL (6.5-10.1) Neutrophils (%) (Auto) % (45.0-75.0) Lymphocytes (%) (Auto) % (20.0-45.0) Monocytes (%) (Auto) % (1.0-10.0) Eosinophils (%) (Auto) % (0.0-3.0) Basophils (%) (Auto) % (0.0-2.0) Neutrophils % (Manual) Pending Lymphocytes % (Manual) Pending Platelet Estimate Pending Platelet Morphology Pending Sodium Level 135 mEQ/L (135-145) Potassium Level 4.6 mEQ/L (3.4-4.9) Chloride Level 94 mEQ/L (98-107) L Carbon Dioxide Level 27 mEQ/L (20-30) Anion Gap 14 (5-15) Blood Urea Nitrogen 28 mg/dL (7-23) H Creatinine 0.7 mg/dL (0.7-1.2) Estimat Glomerular Filtration Rate > 60 mL/min (>60) Glucose Level 221 mg/dL (74-106) #H Calcium Level 8.9 mg/dL (8.6-10.2) Phosphorus Level 3.4 mg/dL (2.5-4.8) Magnesium Level 2.2 mg/dL (1.7-2.5) Total Bilirubin 1.0 mg/dL (0.0-1.2) Aspartate Amino Transf (AST/SGOT) 28 U/L (5-40) Alanine Aminotransferase (ALT/SGPT) 34 U/L (3-41) Alkaline Phosphatase 206 U/L (40-129) H Total Protein 5.5 g/dL (6.6-8.7) L Albumin 1.6 g/dL (3.5-5.2) L Globulin 3.9 g/dL Albumin/Globulin Ratio 0.4 (1.0-2.7) L Current Medications Medications (Trade) Dose Ordered Sig/Shraddha Route PRN Reason Start Time Stop Time Status Last Admin Dose Admin Acetaminophen (Tylenol) 650 mg Q4H PRN GT headache 11/03/16 08:00 12/03/16 07:59 11/10/16 08:37 Acetaminophen (Tylenol) 650 mg Q4H PRN ORAL fever>100.5 11/02/16 17:00 12/02/16 16:59 Colistimethate Sodium 150 mg 150 mg Q12HR@10,22 INH 11/09/16 22:00 11/16/16 21:59 11/10/16 01:18 Dextrose (Dextrose 50%) STAT PRN IV Hypoglycemia 11/02/16 17:00 12/02/16 16:59 Fluconazole/ Sodium Chloride (Diflucan 200mg/ 100ml Premix) 100 ml @ 100 mls/hr Q24H IV 11/09/16 20:00 11/16/16 19:59 11/09/16 20:34 Insulin Aspart (NovoLOG) start when feeding started Q6HR SUBQ 11/02/16 18:00 12/02/16 17:59 11/10/16 05:47 Lansoprazole (Prevacid) 30 mg DAILY GT 10/31/16 09:00 11/30/16 08:59 11/10/16 08:38 Levalbuterol HCl 1.25 mg 1.25 mg Q4H PRN HHN Bronchospasm 11/05/16 11:46 11/10/16 11:45 11/09/16 04:10 Linezolid (Zyvox) 300 ml @ 300 mls/hr Q12HR IVPB 11/09/16 21:00 11/16/16 20:59 11/10/16 08:38 Meropenem 1 gm/ Sodium Chloride 110 ml @ 220 mls/hr Q8HR IVPB 11/09/16 22:00 11/12/16 21:59 11/10/16 05:32 Metoclopramide HCl (Reglan) 10 mg THREE TIMES A DAY GT 10/24/16 19:00 11/23/16 18:59 11/10/16 08:38 Ondansetron HCl (Zofran) 4 mg Q6H PRN IVP Nausea & Vomiting 11/02/16 17:00 12/02/16 16:59 Polyethylene Glycol (Miralax) 17 gm DAILYPRN PRN GT Constipation 10/25/16 01:00 11/24/16 00:59 11/03/16 00:00 Sodium Chloride 500 ml @ 999 mls/hr PRN PRN IVPB For hypotension 11/09/16 17:15 12/09/16 17:14 LINNETTE DIAZ November 10, 2016 08:44
[2016-11-10] MEDS ORDERED: Tubing IV Secondary IV ONE (10:00)
[2016-11-10] MEDS ORDERED: NS 275ml ONE (10:00)
[2016-11-10 11:22] LABS: ANISOCYTOSIS 1+; BAND NEUTROPHILS % (MANUAL) 10 % (0-8); BASOPHILS % (MANUAL) 0 % (0-2); EOSINOPHILS % (MANUAL) 0 % (0-3); HYPOCHROMASIA 1+; LYMPHOCYTES % (MANUAL) 1 % (20-45); MYELOCYTES % 3 % (0-0); NEUTROPHILS % (MANUAL) 83 % (45-75); NUCLEATED RED BLOOD CELLS 1 /100 WBC; PLATELET ESTIMATE ADEQUATE; PLATELET MORPHOLOGY NORMAL; TOTAL CELLS COUNTED 100
[2016-11-10 11:23] LABS: POLYCHROMASIA 1+
--- NOTE | 2016-11-10 12:14 | Diagnostic Imaging Report ---
Indication: Chest Pain Comparison: 11/07/16 A single view chest radiograph was obtained. Findings: Increasing parenchymal infiltrate demonstrated in the right lung base suspicious for pneumonia. Hazy opacification of entire right hemithorax probably in the basis of layering pleural effusion. The lungs are hyperexpanded. Heart size is stable. Tracheostomy again noted. Impression: Suspicion of increasing parenchymal infiltrate at the right lung base. These correlate clinically. Right pleural effusion suspected. COPD
--- NOTE | 2016-11-10 14:41 | General Progress Note ---
Assessment/Plan Assessment/Plan Assessment - Colon polyps/mass seen on CT - COPD - respiratory failure - s/p trach and PEG - dysphagia - h/o OB (+) - Anemia Recommendations - check CEA --> 3.3 - elevate HOB - GT care - follow labs - ? level of care discussion Subjective Allergies: Coded Allergies: No Known Allergies (Unverified , 06/17/16) Subjective withdrawn no family at bedside tolerating feeds Objective Last 24 Hour Vital Signs Date Time Temp Pulse Resp B/P Pulse Ox O2 Delivery O2 Flow Rate FiO2 11/10/16 13:05 127 15 50 11/10/16 12:13 125 11/10/16 12:13 60 11/10/16 12:00 99.9 125 19 107/74 98 Mechanical Ventilator 60 11/10/16 11:05 133 17 50 11/10/16 09:24 138 16 97 Mechanical Ventilator 50 11/10/16 09:09 131 16 96 Mechanical Ventilator 50 11/10/16 09:07 98.9 11/10/16 09:07 132 16 50 11/10/16 08:09 60 11/10/16 08:09 119 11/10/16 08:00 100.3 132 20 110/68 97 Mechanical Ventilator 60 11/10/16 07:21 131 15 50 11/10/16 05:13 134 16 60 11/10/16 04:00 60 11/10/16 04:00 97.9 131 24 109/74 98 Mechanical Ventilator 60 11/10/16 04:00 138 11/10/16 03:14 141 17 60 11/10/16 01:27 131 16 98 Mechanical Ventilator 60 11/10/16 01:18 132 17 98 Mechanical Ventilator 60 11/10/16 00:38 135 17 60 11/10/16 00:00 50 11/10/16 00:00 97.5 134 18 117/77 97 Mechanical Ventilator 50 11/10/16 00:00 136 11/10/16 00:00 136 11/10/16 00:00 97.5 36 11/09/16 22:50 140 17 50 11/09/16 20:57 139 17 50 11/09/16 20:00 98.0 135 16 109/60 100 Mechanical Ventilator 70 11/09/16 20:00 50 11/09/16 20:00 130 11/09/16 19:06 134 20 60 11/09/16 17:03 109 19 60 11/09/16 16:00 70 11/09/16 15:56 98.4 110 16 92/57 100 Mechanical Ventilator 70 11/09/16 15:17 103 11/09/16 15:15 103 16 70 Intake and Output 11/09/16 11/10/16 19:00 07:00 Intake Total 1300.000 ml 1370 ml Output Total 750 ml 800 ml Balance 550.000 ml 570 ml Free Water 450 ml 450 ml IV Total 275.000 ml 730 ml Tube Feeding 575 ml 190 ml Output Urine Total 750 ml 800 ml # Bowel Movements 1 Laboratory Tests 11/10/16 04:25: White Blood Count 58.5#*H, Red Blood Count 3.37L, Hemoglobin 8.9L, Hematocrit 29.1L, Mean Corpuscular Volume 87, Mean Corpuscular Hemoglobin 26.4L, Mean Corpuscular Hemoglobin Concent 30.5L, Red Cell Distribution Width 15.1H, Platelet Count 410, Mean Platelet Volume 7.0, Neutrophils (%) (Auto) , Lymphocytes (%) (Auto) , Monocytes (%) (Auto) , Eosinophils (%) (Auto) , Basophils (%) (Auto) , Differential Total Cells Counted 100, Neutrophils % ( Manual) 83H, Lymphocytes % (Manual) 1L, Monocytes % (Manual) 3, Eosinophils % ( Manual) 0, Basophils % (Manual) 0, Myelocytes % 3H, Band Neutrophils 10H, Nucleated Red Blood Cells 1, Platelet Estimate Adequate, Platelet Morphology Normal, Polychromasia 1+, Hypochromasia 1+, Anisocytosis 1+, Sodium Level 135, Potassium Level 4.6, Chloride Level 94L, Carbon Dioxide Level 27, Anion Gap 14, Blood Urea Nitrogen 28H, Creatinine 0.7, Estimat Glomerular Filtration Rate > 60 , Glucose Level 221#H, Calcium Level 8.9, Phosphorus Level 3.4, Magnesium Level 2.2, Total Bilirubin 1.0, Aspartate Amino Transf (AST/SGOT) 28, Alanine Aminotransferase (ALT/SGPT) 34, Alkaline Phosphatase 206H, Total Protein 5.5L, Albumin 1.6L, Globulin 3.9, Albumin/Globulin Ratio 0.4L Height (Feet): 6 Height (Inches): 2.00 Weight (Pounds): 126 Objective Elderly AA man NCAT (+) trach Coarse BS RRR soft NT abdomen, (+) GT poorly responsive ROSEMARY BURROUGHS November 10, 2016 14:41
--- NOTE | 2016-11-10 17:17 | Internal Med Progress Note ---
Subjective Date of Service: November 10, 2016 Physician Name Tadeo Verdin Attending Physician Steve Rader MD Current Medications Medications (Trade) Dose Ordered Sig/Shraddha Route PRN Reason Start Time Stop Time Status Last Admin Dose Admin Acetaminophen (Tylenol) 650 mg Q4H PRN ORAL fever>100.5 11/02/16 17:00 12/02/16 16:59 Acetaminophen 650 mg 650 mg Q4H PRN GT headache 11/03/16 08:00 12/03/16 07:59 11/10/16 08:37 Colistimethate Sodium 150 mg 150 mg Q12HR@10,22 INH 11/09/16 22:00 11/16/16 21:59 11/10/16 09:22 Dextrose (Dextrose 50%) STAT PRN IV Hypoglycemia 11/02/16 17:00 12/02/16 16:59 Fluconazole/ Sodium Chloride (Diflucan 200mg/ 100ml Premix) 100 ml @ 100 mls/hr Q24H IV 11/09/16 20:00 11/16/16 19:59 11/09/16 20:34 Insulin Aspart (NovoLOG) start when feeding started Q6HR SUBQ 11/02/16 18:00 12/02/16 17:59 11/10/16 12:33 Lansoprazole (Prevacid) 30 mg DAILY GT 10/31/16 09:00 11/30/16 08:59 11/10/16 08:38 Linezolid (Zyvox) 300 ml @ 300 mls/hr Q12HR IVPB 11/09/16 21:00 11/16/16 20:59 11/10/16 08:38 Meropenem 1 gm/ Sodium Chloride 110 ml @ 220 mls/hr Q8HR IVPB 11/09/16 22:00 11/12/16 21:59 11/10/16 15:06 Metoclopramide HCl (Reglan) 10 mg THREE TIMES A DAY GT 10/24/16 19:00 11/23/16 18:59 11/10/16 15:06 Ondansetron HCl (Zofran) 4 mg Q6H PRN IVP Nausea & Vomiting 11/02/16 17:00 12/02/16 16:59 Polyethylene Glycol (Miralax) 17 gm DAILYPRN PRN GT Constipation 10/25/16 01:00 11/24/16 00:59 11/03/16 00:00 Sodium Chloride 500 ml @ 999 mls/hr PRN PRN IVPB For hypotension 11/09/16 17:15 12/09/16 17:14 Allergies: Coded Allergies: No Known Allergies (Unverified , 06/17/16) Subjective 66 YO M admitted with respiratory failure. JORDAN. Intubated with trach. Cover for Int Wilder-Dr Rader. Now colon and gastric masses. Tachycardic & hypotensive Objective Last Vital Signs Date Time Temp Pulse Resp B/P Pulse Ox O2 Delivery O2 Flow Rate FiO2 11/10/16 17:07 117 16 50 11/10/16 12:00 99.9 107/74 98 Mechanical Ventilator 11/06/16 10:35 10.0 Laboratory Tests Test 11/10/16 04:25 White Blood Count 58.5 K/UL (4.8-10.8) #*H Red Blood Count 3.37 M/UL (4.70-6.10) L Hemoglobin 8.9 G/DL (14.2-18.0) L Hematocrit 29.1 % (42.0-52.0) L Mean Corpuscular Volume 87 FL (80-99) Mean Corpuscular Hemoglobin 26.4 PG (27.0-31.0) L Mean Corpuscular Hemoglobin Concent 30.5 G/DL (32.0-36.0) L Red Cell Distribution Width 15.1 % (11.6-14.8) H Platelet Count 410 K/UL (150-450) Mean Platelet Volume 7.0 FL (6.5-10.1) Neutrophils (%) (Auto) % (45.0-75.0) Lymphocytes (%) (Auto) % (20.0-45.0) Monocytes (%) (Auto) % (1.0-10.0) Eosinophils (%) (Auto) % (0.0-3.0) Basophils (%) (Auto) % (0.0-2.0) Differential Total Cells Counted 100 Neutrophils % (Manual) 83 % (45-75) H Lymphocytes % (Manual) 1 % (20-45) L Monocytes % (Manual) 3 % (1-10) Eosinophils % (Manual) 0 % (0-3) Basophils % (Manual) 0 % (0-2) Myelocytes % 3 % (0-0) H Band Neutrophils 10 % (0-8) H Nucleated Red Blood Cells 1 /100 WBC Platelet Estimate Adequate Platelet Morphology Normal Polychromasia 1+ Hypochromasia 1+ Anisocytosis 1+ Sodium Level 135 mEQ/L (135-145) Potassium Level 4.6 mEQ/L (3.4-4.9) Chloride Level 94 mEQ/L (98-107) L Carbon Dioxide Level 27 mEQ/L (20-30) Anion Gap 14 (5-15) Blood Urea Nitrogen 28 mg/dL (7-23) H Creatinine 0.7 mg/dL (0.7-1.2) Estimat Glomerular Filtration Rate > 60 mL/min (>60) Glucose Level 221 mg/dL (74-106) #H Calcium Level 8.9 mg/dL (8.6-10.2) Phosphorus Level 3.4 mg/dL (2.5-4.8) Magnesium Level 2.2 mg/dL (1.7-2.5) Total Bilirubin 1.0 mg/dL (0.0-1.2) Aspartate Amino Transf (AST/SGOT) 28 U/L (5-40) Alanine Aminotransferase (ALT/SGPT) 34 U/L (3-41) Alkaline Phosphatase 206 U/L (40-129) H Total Protein 5.5 g/dL (6.6-8.7) L Albumin 1.6 g/dL (3.5-5.2) L Globulin 3.9 g/dL Albumin/Globulin Ratio 0.4 (1.0-2.7) L Intake and Output 11/09/16 11/10/16 19:00 07:00 Intake Total 1300.000 ml 1370 ml Output Total 750 ml 800 ml Balance 550.000 ml 570 ml Free Water 450 ml 450 ml IV Total 275.000 ml 730 ml Tube Feeding 575 ml 190 ml Output Urine Total 750 ml 800 ml # Bowel Movements 1 Objective General Appearance: moderate distress, thin EENT: PERRL/EOMI, normal ENT inspection Neck: non-tender, normal alignment, supple Cardiovascular: normal peripheral pulses, normal rate, regular rhythm, no gallop/murmur, no JVD Respiratory/Chest: Trach; Mech Vent; trach; respiratory distress, crackles/ rales, rhonchi - bilaterally, expiratory wheezing Abdomen: non tender, soft, no organomegaly, no mass, decreased bowel sounds Extremities: normal range of motion Skin: normal pigmentation, warm/dry Assessment/Plan Problem List: (1) Lung nodule (2) DVT (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 (3) Acute respiratory failure Assessment & Plan: S/P tracheostomy 10/03/16. Failed weaning trial. Cont vent per pulmonary (4) COPD exacerbation Assessment & Plan: Continue duoneb. Continue vent per pulmonary. (5) Pneumonia Assessment & Plan: MDR Acenitobacter. New RLL consolidation. Continue colistin inh, zyvox, diflucan and meropenem per ID (6) Leukocytosis Assessment & Plan: Improving. Await Culture results. Start meropenem and vanco per ID (7) Dysphagia Assessment & Plan: See GI consult- S/P PEG 10/04/16. (8) Hypoglycemia Assessment & Plan: D50 prn; decrease insulin sliding scale. (9) Dysuria Assessment & Plan: D/C garcia cath. (10) Severe sepsis Assessment & Plan: Blood cultures X2. Cont meropenem, colistin Inh, zyvox and diflucan per ID. (11) Hypotension Assessment & Plan: Transfer to ICU if pressors are needed. (12) Gastric mass (13) Mass of colon Assessment & Plan: Cecum and colon masses. See GI note. (14) UTI (urinary tract infection) due to Enterococcus Assessment & Plan: VRE. See ID note. Status: deteriorating Assessment/Plan Prognosis guraded. Transfer to ICU; full code TADEO VERDIN November 10, 2016 17:17
[2016-11-10] MEDS: Micafungin 100 MG in NS 110 ML IVPB SCH (20:02)
--- NOTE | 2016-11-10 22:40 | Pulmonology Progress Note ---
Assessment/Plan Problems: (1) Severe sepsis (2) Abdominal distention (3) Respiratory failure (4) COPD exacerbation (5) Emphysema of lung (6) Colonic mass Assessment/Plan cxr yesterday showing increased pulmonary edema/ effusion wbc rising again myers cultures continue current vent setting, titrate fio2 to sat of 92% not tolerating weaning abx as per ID Subjective ROS Limited/Unobtainable: No Allergies: Coded Allergies: No Known Allergies (Unverified , 06/17/16) Objective Last 24 Hour Vital Signs Date Time Temp Pulse Resp B/P Pulse Ox O2 Delivery O2 Flow Rate FiO2 11/10/16 21:07 133 16 99 Mechanical Ventilator 60 11/10/16 20:57 131 16 98 Mechanical Ventilator 60 11/10/16 20:55 131 16 60 11/10/16 20:00 60 11/10/16 20:00 122 11/10/16 20:00 97.6 125 21 104/68 100 Mechanical Ventilator 60 11/10/16 19:16 129 16 60 11/10/16 18:30 108/80 11/10/16 17:07 117 16 50 11/10/16 16:00 125 11/10/16 16:00 60 11/10/16 16:00 98.9 119 22 86/55 98 Mechanical Ventilator 60 11/10/16 14:48 122 16 50 11/10/16 13:05 127 15 50 11/10/16 12:13 125 11/10/16 12:13 60 11/10/16 12:00 99.9 125 19 107/74 98 Mechanical Ventilator 60 11/10/16 11:05 133 17 50 11/10/16 09:24 138 16 97 Mechanical Ventilator 50 11/10/16 09:09 131 16 96 Mechanical Ventilator 50 11/10/16 09:07 98.9 11/10/16 09:07 132 16 50 11/10/16 08:09 60 11/10/16 08:09 119 11/10/16 08:00 100.3 132 20 110/68 97 Mechanical Ventilator 60 11/10/16 07:21 131 15 50 11/10/16 05:13 134 16 60 11/10/16 04:00 60 11/10/16 04:00 97.9 131 24 109/74 98 Mechanical Ventilator 60 11/10/16 04:00 138 11/10/16 03:14 141 17 60 11/10/16 01:27 131 16 98 Mechanical Ventilator 60 11/10/16 01:18 132 17 98 Mechanical Ventilator 60 11/10/16 00:38 135 17 60 11/10/16 00:00 50 11/10/16 00:00 97.5 134 18 117/77 97 Mechanical Ventilator 50 11/10/16 00:00 136 11/10/16 00:00 136 11/10/16 00:00 97.5 36 11/09/16 22:50 140 17 50 Intake and Output 11/09/16 11/10/16 19:00 07:00 Intake Total 1300.000 ml 1370 ml Output Total 750 ml 800 ml Balance 550.000 ml 570 ml Free Water 450 ml 450 ml IV Total 275.000 ml 730 ml Tube Feeding 575 ml 190 ml Output Urine Total 750 ml 800 ml # Bowel Movements 1 Objective Status: awake HEENT: atraumatic, normocephalic Lungs: clear, decreased breath sounds Heart: HR/BP stable Abdomen: soft, non-tender Extremities: no C/C/E, edema Laboratory Tests 11/10/16 04:25: White Blood Count 58.5#*H, Red Blood Count 3.37L, Hemoglobin 8.9L, Hematocrit 29.1L, Mean Corpuscular Volume 87, Mean Corpuscular Hemoglobin 26.4L, Mean Corpuscular Hemoglobin Concent 30.5L, Red Cell Distribution Width 15.1H, Platelet Count 410, Mean Platelet Volume 7.0, Neutrophils (%) (Auto) , Lymphocytes (%) (Auto) , Monocytes (%) (Auto) , Eosinophils (%) (Auto) , Basophils (%) (Auto) , Differential Total Cells Counted 100, Neutrophils % ( Manual) 83H, Lymphocytes % (Manual) 1L, Monocytes % (Manual) 3, Eosinophils % ( Manual) 0, Basophils % (Manual) 0, Myelocytes % 3H, Band Neutrophils 10H, Nucleated Red Blood Cells 1, Platelet Estimate Adequate, Platelet Morphology Normal, Polychromasia 1+, Hypochromasia 1+, Anisocytosis 1+, Sodium Level 135, Potassium Level 4.6, Chloride Level 94L, Carbon Dioxide Level 27, Anion Gap 14, Blood Urea Nitrogen 28H, Creatinine 0.7, Estimat Glomerular Filtration Rate > 60 , Glucose Level 221#H, Calcium Level 8.9, Phosphorus Level 3.4, Magnesium Level 2.2, Total Bilirubin 1.0, Aspartate Amino Transf (AST/SGOT) 28, Alanine Aminotransferase (ALT/SGPT) 34, Alkaline Phosphatase 206H, Total Protein 5.5L, Albumin 1.6L, Globulin 3.9, Albumin/Globulin Ratio 0.4L Current Medications Medications (Trade) Dose Ordered Sig/Shraddha Route PRN Reason Start Time Stop Time Status Last Admin Dose Admin Acetaminophen (Tylenol) 650 mg Q4H PRN ORAL fever>100.5 11/02/16 17:00 12/02/16 16:59 Acetaminophen 650 mg 650 mg Q4H PRN GT headache 11/03/16 08:00 12/03/16 07:59 11/10/16 08:37 Colistimethate Sodium 150 mg 150 mg Q12HR@10,22 INH 11/09/16 22:00 11/16/16 21:59 11/10/16 20:54 Dextrose (Dextrose 50%) STAT PRN IV Hypoglycemia 11/02/16 17:00 12/02/16 16:59 Insulin Aspart (NovoLOG) start when feeding started Q6HR SUBQ 11/02/16 18:00 12/02/16 17:59 11/10/16 12:33 Lansoprazole (Prevacid) 30 mg DAILY GT 10/31/16 09:00 11/30/16 08:59 11/10/16 08:38 Linezolid (Zyvox) 300 ml @ 300 mls/hr Q12HR IVPB 11/09/16 21:00 11/16/16 20:59 11/10/16 21:01 Meropenem 1 gm/ Sodium Chloride 110 ml @ 220 mls/hr Q8HR IVPB 11/09/16 22:00 11/12/16 21:59 11/10/16 22:00 Metoclopramide HCl (Reglan) 10 mg THREE TIMES A DAY GT 10/24/16 19:00 11/23/16 18:59 11/10/16 17:35 Micafungin Sodium/ Sodium Chloride (Mycamine/Sodium Chloride) 110 ml @ 110 mls/hr Q24H IVPB 11/10/16 20:00 11/17/16 19:59 11/10/16 20:02 Ondansetron HCl (Zofran) 4 mg Q6H PRN IVP Nausea & Vomiting 11/02/16 17:00 12/02/16 16:59 Polyethylene Glycol (Miralax) 17 gm DAILYPRN PRN GT Constipation 10/25/16 01:00 11/24/16 00:59 11/03/16 00:00 Sodium Chloride 500 ml @ 999 mls/hr PRN PRN IVPB For hypotension 11/09/16 17:15 12/09/16 17:14 11/10/16 17:25 REN WRIGHT November 10, 2016 22:40
[2016-11-11] VITALS (17 sets, daily range): BP systolic 94–153; BP diastolic 55–97
[2016-11-11] MEDS: NovoLOG Insulin Flexpen SUBQ SCH ×5 (00:29→23:34)
[2016-11-11] MEDS ORDERED: Levophed 4mg/4mL Inj IV ONE (00:33)
[2016-11-11 06:01] LABS: MEAN CORPUSCULAR HEMOGLOBIN 27.2 PG (27.0-31.0); MEAN CORPUSCULAR HGB CONC 31.7 G/DL (32.0-36.0); MEAN CORPUSCULAR VOLUME 86 FL (80-99); MEAN PLATELET VOLUME 6.8 FL (6.5-10.1); PLATELET COUNT 395 K/UL (150-450); RED BLOOD COUNT 3.23 M/UL (4.70-6.10); RED CELL DISTRIBUTION WIDTH 15.3 % (11.6-14.8)
[2016-11-11] MEDS: Meropenem 1 GM in NS 110 ML IVPB SCH ×3 (06:02→22:30)
[2016-11-11 06:22] LABS: ANION GAP 13 (5-15); CALCIUM 8.8 mg/dL (8.6-10.2); CARBON DIOXIDE 26 mEQ/L (20-30); CHLORIDE 96 mEQ/L (98-107); CREATININE 0.7 mg/dL (0.7-1.2); GLOMERULAR FILTRATION RATE > 60 mL/min (>60); HEMOLYSIS 54; POTASSIUM 5.5 mEQ/L (3.4-4.9); SODIUM 135 mEQ/L (135-145)
[2016-11-11 06:28] LABS: WHITE BLOOD COUNT 64.7 K/UL (4.8-10.8)
[2016-11-11] MEDS ORDERED: Heparin 2000 units/Ns 1000ml INJ ONE (08:00)
[2016-11-11] MEDS ORDERED: Sodium Bicarbonate 8.4% 50ml Inj IV ONE (08:00)
[2016-11-11] MEDS ORDERED: Lidocaine 1% Plain 30 ml INJ ONE (08:00)
[2016-11-11] MEDS: Colistin for inhalation INH SCH ×2 (08:59→21:24)
[2016-11-11] MEDS ORDERED: Sodium Polystyrene Sulfonate 15gm Powder ORAL ONE (09:15)
[2016-11-11 09:43] LABS: ANISOCYTOSIS 1+; BAND NEUTROPHILS % (MANUAL) 7 % (0-8); BASOPHILS % (MANUAL) 0 % (0-2); EOSINOPHILS % (MANUAL) 0 % (0-3); HYPOCHROMASIA 1+; LYMPHOCYTES % (MANUAL) 4 % (20-45); MYELOCYTES % 2 % (0-0); NEUTROPHILS % (MANUAL) 85 % (45-75); PLATELET ESTIMATE ADEQUATE; PLATELET MORPHOLOGY NORMAL; TOTAL CELLS COUNTED 100
[2016-11-11 09:44] LABS: POLYCHROMASIA OCCASIONAL
[2016-11-11] MEDS ORDERED: Tubing IV Secondary IV ONE (10:48)
[2016-11-11] MEDS ORDERED: NS 275ml ONE (10:48)
[2016-11-11] MEDS ORDERED: NS 550ML IV ONE (10:48)
[2016-11-11 11:10] LABS: OTHERS PATHOLOGIST COMMENT
--- NOTE | 2016-11-11 11:55 | Pulmonolgy Critical Care Note ---
Critical Care - Asmt/Plan Problems: (1) Respiratory failure (2) COPD exacerbation (3) Pneumonia (4) Altered mental status Respiratory: monitor respiratory rate, adjust FIO2, CXR Cardiac: continue to monitor HR/BP Renal: F/U I&O, keep IV fluid, check electrolytes Infectious Disease: check cultures, continue antibiotics Gastrointestinal: continue feedings/current rate Endocrine: monitor blood sugar Hematologic: monitor H/H, transfuse if hgb<8.5 Neurologic: PRN Ativan, keep patient comfortable Affect: PRN ativan Prophylaxis: Protonix Disposition: keep in ICU Notes Reviewed: mining professionals, cardio 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, consultants, case making machine operator, family member Critical Care - Objective Last 24 Hour Vital Signs Date Time Temp Pulse Resp B/P Pulse Ox O2 Delivery O2 Flow Rate FiO2 11/11/16 11:20 122 16 50 11/11/16 11:00 124 17 111/71 100 Mechanical Ventilator 50 11/11/16 10:00 119 16 138/97 100 Mechanical Ventilator 50 11/11/16 09:10 126 16 99 Mechanical Ventilator 60 11/11/16 09:00 123 16 109/63 100 Mechanical Ventilator 50 11/11/16 08:59 130 16 100 Mechanical Ventilator 50 11/11/16 08:52 124 16 50 11/11/16 08:00 97.8 124 18 136/92 100 Mechanical Ventilator 50 11/11/16 08:00 123 11/11/16 08:00 50 11/11/16 07:06 125 16 50 11/11/16 07:00 125 27 127/77 100 Mechanical Ventilator 50 11/11/16 06:00 122 22 122/77 100 Mechanical Ventilator 50 11/11/16 05:00 124 28 141/76 100 Mechanical Ventilator 50 11/11/16 04:55 120 16 50 11/11/16 04:00 50 11/11/16 04:00 122 11/11/16 04:00 97.6 122 25 130/79 100 Mechanical Ventilator 50 11/11/16 03:00 122 31 140/68 100 Mechanical Ventilator 50 11/11/16 02:57 124 16 50 11/11/16 02:00 122 33 153/86 100 Mechanical Ventilator 50 11/11/16 01:30 118 28 139/82 100 Mechanical Ventilator 60 11/11/16 01:07 121 16 50 11/11/16 01:00 114 26 122/94 100 Mechanical Ventilator 60 11/11/16 00:30 114 30 94/62 100 Mechanical Ventilator 60 11/11/16 00:00 97.8 115 24 94/55 100 Mechanical Ventilator 60 11/11/16 00:00 50 11/10/16 23:30 118 19 87/67 99 Mechanical Ventilator 60 11/10/16 23:30 120 11/10/16 23:12 121 16 60 11/10/16 23:00 128 22 74/53 99 Mechanical Ventilator 60 11/10/16 22:30 125 84/54 11/10/16 22:00 97.6 121 21 64/39 100 Mechanical Ventilator 60 11/10/16 21:07 133 16 99 Mechanical Ventilator 60 11/10/16 20:57 131 16 98 Mechanical Ventilator 60 11/10/16 20:55 131 16 60 11/10/16 20:00 60 11/10/16 20:00 122 11/10/16 20:00 97.6 125 21 104/68 100 Mechanical Ventilator 60 11/10/16 19:16 129 16 60 11/10/16 18:30 108/80 11/10/16 17:07 117 16 50 11/10/16 16:00 125 11/10/16 16:00 60 11/10/16 16:00 98.9 119 22 86/55 98 Mechanical Ventilator 60 11/10/16 14:48 122 16 50 11/10/16 13:05 127 15 50 11/10/16 12:13 125 11/10/16 12:13 60 11/10/16 12:00 99.9 125 19 107/74 98 Mechanical Ventilator 60 Status: awake Condition: critical HEENT: atraumatic Neck: full ROM Lungs: clear Heart: HR/BP stable, HR/BP unstable Abdomen: soft, non-tender Extremities: no C/C/E, edema Decubiti: stage Accucheck: 139 Critical Care - Subjective ROS Limited/Unobtainable: Yes ICU Day: 2 Interval Events: pt was transferred to ICU because of hypotension. Condition: critical, improving FI02: 50 Vent Support Breath Rate: 16 Vent Support Mode: AC Vent Tidal Volume: 600 Sputum Amount: Small PEEP: 5.0 PIP: 34 Tube Feeding Amount: 65 I&O: Intake and Output 11/10/16 11/11/16 19:00 07:00 Intake Total 2509 ml 2619 ml Output Total 500 ml 320 ml Balance 2009 ml 2299 ml Free Water 450 ml 450 ml IV Total 1409 ml 2039 ml Tube Feeding 650 ml 130 ml Output Urine Total 500 ml 320 ml # Bowel Movements 1 2 CXR: worsening edema and infiltrate ET-Tube: 8.0 ET Position: 0 Labs: Laboratory Tests Test 11/11/16 04:10 White Blood Count 64.7 K/UL (4.8-10.8) *H Red Blood Count 3.23 M/UL (4.70-6.10) L Hemoglobin 8.8 G/DL (14.2-18.0) L Hematocrit 27.7 % (42.0-52.0) L Mean Corpuscular Volume 86 FL (80-99) Mean Corpuscular Hemoglobin 27.2 PG (27.0-31.0) Mean Corpuscular Hemoglobin Concent 31.7 G/DL (32.0-36.0) L Red Cell Distribution Width 15.3 % (11.6-14.8) H Platelet Count 395 K/UL (150-450) Mean Platelet Volume 6.8 FL (6.5-10.1) Neutrophils (%) (Auto) % (45.0-75.0) Lymphocytes (%) (Auto) % (20.0-45.0) Monocytes (%) (Auto) % (1.0-10.0) Eosinophils (%) (Auto) % (0.0-3.0) Basophils (%) (Auto) % (0.0-2.0) Differential Total Cells Counted 100 Neutrophils % (Manual) 85 % (45-75) H Lymphocytes % (Manual) 4 % (20-45) L Monocytes % (Manual) 2 % (1-10) Eosinophils % (Manual) 0 % (0-3) Basophils % (Manual) 0 % (0-2) Myelocytes % 2 % (0-0) H Band Neutrophils 7 % (0-8) Platelet Estimate Adequate Platelet Morphology Normal Polychromasia Occasional Hypochromasia 1+ Anisocytosis 1+ Sodium Level 135 mEQ/L (135-145) Potassium Level 5.5 mEQ/L (3.4-4.9) H Chloride Level 96 mEQ/L (98-107) L Carbon Dioxide Level 26 mEQ/L (20-30) Anion Gap 13 (5-15) Blood Urea Nitrogen 30 mg/dL (7-23) H Creatinine 0.7 mg/dL (0.7-1.2) Estimat Glomerular Filtration Rate > 60 mL/min (>60) Glucose Level 97 mg/dL (74-106) # Calcium Level 8.8 mg/dL (8.6-10.2) REN WRIGHT November 11, 2016 11:54
--- NOTE | 2016-11-11 11:56 | Infectious Diseases Prog Note ---
Assessment/Plan Assessment/Plan ASSESSMENT: 66 y/o male with: // VAP SCx: MDR ACB and PSA CT : Since previous exam of 2 days earlier, marked worsening of right lower lobe dense consolidation, consistent with rapidly progressing pneumonia. // UCx yeast and VRE // COPD exacerbation - delayed SCx 4+ PSA SP Rx - CXR 09/27: Lungs are hyperinflated. No new infiltrates - negative: influenza // Leukocytosis, // Hypotension SP // Abd pain ?etio CDiff neg , LAC : Nl - Ct of Abd : 4.4 x 3 x 4.4 cm filling defect within the proximal ascending colon.Appearance is that of a polyp on a stalk. Size of this lesion raises concern for malignancy. // Ro C Diff Neg vs Isch colitis // Febrile low grade , SP // HIV and Hep B/C : neg // colon mass ro cancer , GI is following CT: Large cecal mass and other polypoid colonic masses, detailed previously , again demonstrated // - PEG 10/04 // Acute VDRF - intubated 09/20, 10/03 SP trach // Severe pulmonary HTN / grade I diastolic dysfunction / mod TR // Pulmonary nodules // Chronic RLE DVT // Tobacco abuse // [place] resident // Negative MRSA, VRE screens // NKDA // Full Code PLAN: - cont Merrem , Colistin INH , Zyvox and Mycamine d#3 add Levaquin d# 1 ( 11/09 SP Vanco d# 6 / 10 and oral Vanco d# 5 ) ( 10/17 SP Ceftazidime d# 14 ) ( 10/13 SP Jairon nebs d# 14 ) ( 10/11 SP Flagyl d# 10 ) ( 10/04 SP oral Vanco d# 3 ) ( 09/24 SP amikacin, invanz d# 5 / 5 ) ( 09/21 SP IV vancomycin d# 2 ) - taper steroids per pulm - monitor CBC, temperatures - monitor BMP - monitor CXR - vent support, wean as tolerated - thoracentesis Subjective Allergies: Coded Allergies: No Known Allergies (Unverified , 06/17/16) Subjective leukocytes worsen , transferred to ICU and now back to [facility] after BP improved Objective Vital Signs Last 24 Hour Vital Signs Date Time Temp Pulse Resp B/P Pulse Ox O2 Delivery O2 Flow Rate FiO2 11/11/16 11:20 122 16 50 11/11/16 11:00 124 17 111/71 100 Mechanical Ventilator 50 11/11/16 10:00 119 16 138/97 100 Mechanical Ventilator 50 11/11/16 09:10 126 16 99 Mechanical Ventilator 60 11/11/16 09:00 123 16 109/63 100 Mechanical Ventilator 50 11/11/16 08:59 130 16 100 Mechanical Ventilator 50 11/11/16 08:52 124 16 50 11/11/16 08:00 97.8 124 18 136/92 100 Mechanical Ventilator 50 11/11/16 08:00 123 11/11/16 08:00 50 11/11/16 07:06 125 16 50 11/11/16 07:00 125 27 127/77 100 Mechanical Ventilator 50 11/11/16 06:00 122 22 122/77 100 Mechanical Ventilator 50 11/11/16 05:00 124 28 141/76 100 Mechanical Ventilator 50 11/11/16 04:55 120 16 50 11/11/16 04:00 50 11/11/16 04:00 122 11/11/16 04:00 97.6 122 25 130/79 100 Mechanical Ventilator 50 11/11/16 03:00 122 31 140/68 100 Mechanical Ventilator 50 11/11/16 02:57 124 16 50 11/11/16 02:00 122 33 153/86 100 Mechanical Ventilator 50 11/11/16 01:30 118 28 139/82 100 Mechanical Ventilator 60 11/11/16 01:07 121 16 50 11/11/16 01:00 114 26 122/94 100 Mechanical Ventilator 60 11/11/16 00:30 114 30 94/62 100 Mechanical Ventilator 60 11/11/16 00:00 97.8 115 24 94/55 100 Mechanical Ventilator 60 11/11/16 00:00 50 11/10/16 23:30 118 19 87/67 99 Mechanical Ventilator 60 11/10/16 23:30 120 11/10/16 23:12 121 16 60 11/10/16 23:00 128 22 74/53 99 Mechanical Ventilator 60 11/10/16 22:30 125 84/54 11/10/16 22:00 97.6 121 21 64/39 100 Mechanical Ventilator 60 11/10/16 21:07 133 16 99 Mechanical Ventilator 60 11/10/16 20:57 131 16 98 Mechanical Ventilator 60 11/10/16 20:55 131 16 60 11/10/16 20:00 60 11/10/16 20:00 122 11/10/16 20:00 97.6 125 21 104/68 100 Mechanical Ventilator 60 11/10/16 19:16 129 16 60 11/10/16 18:30 108/80 11/10/16 17:07 117 16 50 11/10/16 16:00 125 11/10/16 16:00 60 11/10/16 16:00 98.9 119 22 86/55 98 Mechanical Ventilator 60 11/10/16 14:48 122 16 50 11/10/16 13:05 127 15 50 11/10/16 12:13 125 11/10/16 12:13 60 11/10/16 12:00 99.9 125 19 107/74 98 Mechanical Ventilator 60 Height (Feet): 6 Height (Inches): 2.00 Weight (Pounds): 126 HEENT: anicteric Respiratory/Chest: lungs clear Cardiovascular: normal rate Abdomen: soft, non tender Laboratory Tests Test 11/11/16 04:10 White Blood Count 64.7 K/UL (4.8-10.8) *H Red Blood Count 3.23 M/UL (4.70-6.10) L Hemoglobin 8.8 G/DL (14.2-18.0) L Hematocrit 27.7 % (42.0-52.0) L Mean Corpuscular Volume 86 FL (80-99) Mean Corpuscular Hemoglobin 27.2 PG (27.0-31.0) Mean Corpuscular Hemoglobin Concent 31.7 G/DL (32.0-36.0) L Red Cell Distribution Width 15.3 % (11.6-14.8) H Platelet Count 395 K/UL (150-450) Mean Platelet Volume 6.8 FL (6.5-10.1) Neutrophils (%) (Auto) % (45.0-75.0) Lymphocytes (%) (Auto) % (20.0-45.0) Monocytes (%) (Auto) % (1.0-10.0) Eosinophils (%) (Auto) % (0.0-3.0) Basophils (%) (Auto) % (0.0-2.0) Differential Total Cells Counted 100 Neutrophils % (Manual) 85 % (45-75) H Lymphocytes % (Manual) 4 % (20-45) L Monocytes % (Manual) 2 % (1-10) Eosinophils % (Manual) 0 % (0-3) Basophils % (Manual) 0 % (0-2) Myelocytes % 2 % (0-0) H Band Neutrophils 7 % (0-8) Platelet Estimate Adequate Platelet Morphology Normal Polychromasia Occasional Hypochromasia 1+ Anisocytosis 1+ Sodium Level 135 mEQ/L (135-145) Potassium Level 5.5 mEQ/L (3.4-4.9) H Chloride Level 96 mEQ/L (98-107) L Carbon Dioxide Level 26 mEQ/L (20-30) Anion Gap 13 (5-15) Blood Urea Nitrogen 30 mg/dL (7-23) H Creatinine 0.7 mg/dL (0.7-1.2) Estimat Glomerular Filtration Rate > 60 mL/min (>60) Glucose Level 97 mg/dL (74-106) # Calcium Level 8.8 mg/dL (8.6-10.2) Current Medications Medications (Trade) Dose Ordered Sig/Shraddha Route PRN Reason Start Time Stop Time Status Last Admin Dose Admin Acetaminophen (Tylenol) 650 mg Q4H PRN ORAL fever>100.5 11/02/16 17:00 12/02/16 16:59 Acetaminophen 650 mg 650 mg Q4H PRN GT headache 11/03/16 08:00 12/03/16 07:59 11/10/16 08:37 Colistimethate Sodium 150 mg 150 mg Q12HR@10,22 INH 11/09/16 22:00 11/16/16 21:59 11/11/16 08:59 Dextrose (Dextrose 50%) STAT PRN IV Hypoglycemia 11/02/16 17:00 12/02/16 16:59 Insulin Aspart (NovoLOG) start when feeding started Q6HR SUBQ 11/02/16 18:00 12/02/16 17:59 11/11/16 06:08 Lansoprazole (Prevacid) 30 mg DAILY GT 10/31/16 09:00 11/30/16 08:59 11/11/16 08:44 Linezolid (Zyvox) 300 ml @ 300 mls/hr Q12HR IVPB 11/09/16 21:00 11/16/16 20:59 11/11/16 08:44 Meropenem 1 gm/ Sodium Chloride 110 ml @ 220 mls/hr Q8HR IVPB 11/09/16 22:00 11/12/16 21:59 11/11/16 06:02 Metoclopramide HCl (Reglan) 10 mg THREE TIMES A DAY GT 10/24/16 19:00 11/23/16 18:59 11/11/16 08:44 Micafungin Sodium 100 mg/Sodium Chloride 110 ml @ 110 mls/hr Q24H IVPB 11/10/16 20:00 11/17/16 19:59 11/10/16 20:02 Norepinephrine Bitartrate 4 mg/ Dextrose 250 ml @ 0 mls/hr Q24H IV 11/10/16 23:45 12/10/16 23:44 Ondansetron HCl (Zofran) 4 mg Q6H PRN IVP Nausea & Vomiting 11/02/16 17:00 12/02/16 16:59 Polyethylene Glycol (Miralax) 17 gm DAILYPRN PRN GT Constipation 10/25/16 01:00 11/24/16 00:59 11/03/16 00:00 Sodium Chloride 500 ml @ 999 mls/hr PRN PRN IVPB For hypotension 11/09/16 17:15 12/09/16 17:14 11/10/16 22:00 Sodium Chloride (Sodium Chloride 1000ml bag) 1,000 ml @ 75 mls/hr [id number] IV 11/11/16 01:00 12/11/16 00:59 11/11/16 01:30 KIMBERLEE HINKLE M.D. November 11, 2016 11:56
--- NOTE | 2016-11-11 12:02 | Internal Med Progress Note ---
Subjective Date of Service: November 11, 2016 Physician Name Verdin,Tadeo Attending Physician Steve Rader MD Current Medications Medications (Trade) Dose Ordered Sig/Shraddha Route PRN Reason Start Time Stop Time Status Last Admin Dose Admin Acetaminophen (Tylenol) 650 mg Q4H PRN ORAL fever>100.5 11/02/16 17:00 12/02/16 16:59 Acetaminophen 650 mg 650 mg Q4H PRN GT headache 11/03/16 08:00 12/03/16 07:59 11/10/16 08:37 Colistimethate Sodium 150 mg 150 mg Q12HR@10,22 INH 11/09/16 22:00 11/16/16 21:59 11/11/16 08:59 Dextrose (Dextrose 50%) STAT PRN IV Hypoglycemia 11/02/16 17:00 12/02/16 16:59 Insulin Aspart (NovoLOG) start when feeding started Q6HR SUBQ 11/02/16 18:00 12/02/16 17:59 11/11/16 06:08 Lansoprazole (Prevacid) 30 mg DAILY GT 10/31/16 09:00 11/30/16 08:59 11/11/16 08:44 Linezolid (Zyvox) 300 ml @ 300 mls/hr Q12HR IVPB 11/09/16 21:00 11/16/16 20:59 11/11/16 08:44 Meropenem 1 gm/ Sodium Chloride 110 ml @ 220 mls/hr Q8HR IVPB 11/09/16 22:00 11/12/16 21:59 11/11/16 06:02 Metoclopramide HCl (Reglan) 10 mg THREE TIMES A DAY GT 10/24/16 19:00 11/23/16 18:59 11/11/16 08:44 Micafungin Sodium 100 mg/Sodium Chloride 110 ml @ 110 mls/hr Q24H IVPB 11/10/16 20:00 11/17/16 19:59 11/10/16 20:02 Norepinephrine Bitartrate 4 mg/ Dextrose 250 ml @ 0 mls/hr Q24H IV 11/10/16 23:45 12/10/16 23:44 Ondansetron HCl (Zofran) 4 mg Q6H PRN IVP Nausea & Vomiting 11/02/16 17:00 12/02/16 16:59 Polyethylene Glycol (Miralax) 17 gm DAILYPRN PRN GT Constipation 10/25/16 01:00 11/24/16 00:59 11/03/16 00:00 Sodium Chloride 500 ml @ 999 mls/hr PRN PRN IVPB For hypotension 11/09/16 17:15 12/09/16 17:14 11/10/16 22:00 Sodium Chloride (Sodium Chloride 1000ml bag) 1,000 ml @ 75 mls/hr [id number] IV 11/11/16 01:00 12/11/16 00:59 11/11/16 01:30 Allergies: Coded Allergies: No Known Allergies (Unverified , 06/17/16) ROS Limited/Unobtainable: Yes Subjective 66 YO M admitted with respiratory failure. Transfered to ICU last evening due to hypotension. Intubated with trach. Cover for Int [facility]-Dr Rader. Now colon and gastric masses. Tachycardic & hypotensive Objective Last Vital Signs Date Time Temp Pulse Resp B/P Pulse Ox O2 Delivery O2 Flow Rate FiO2 11/11/16 11:20 122 16 50 11/11/16 11:00 111/71 100 Mechanical Ventilator 11/11/16 08:00 97.8 11/06/16 10:35 10.0 Laboratory Tests Test 11/11/16 04:10 White Blood Count 64.7 K/UL (4.8-10.8) *H Red Blood Count 3.23 M/UL (4.70-6.10) L Hemoglobin 8.8 G/DL (14.2-18.0) L Hematocrit 27.7 % (42.0-52.0) L Mean Corpuscular Volume 86 FL (80-99) Mean Corpuscular Hemoglobin 27.2 PG (27.0-31.0) Mean Corpuscular Hemoglobin Concent 31.7 G/DL (32.0-36.0) L Red Cell Distribution Width 15.3 % (11.6-14.8) H Platelet Count 395 K/UL (150-450) Mean Platelet Volume 6.8 FL (6.5-10.1) Neutrophils (%) (Auto) % (45.0-75.0) Lymphocytes (%) (Auto) % (20.0-45.0) Monocytes (%) (Auto) % (1.0-10.0) Eosinophils (%) (Auto) % (0.0-3.0) Basophils (%) (Auto) % (0.0-2.0) Differential Total Cells Counted 100 Neutrophils % (Manual) 85 % (45-75) H Lymphocytes % (Manual) 4 % (20-45) L Monocytes % (Manual) 2 % (1-10) Eosinophils % (Manual) 0 % (0-3) Basophils % (Manual) 0 % (0-2) Myelocytes % 2 % (0-0) H Band Neutrophils 7 % (0-8) Platelet Estimate Adequate Platelet Morphology Normal Polychromasia Occasional Hypochromasia 1+ Anisocytosis 1+ Sodium Level 135 mEQ/L (135-145) Potassium Level 5.5 mEQ/L (3.4-4.9) H Chloride Level 96 mEQ/L (98-107) L Carbon Dioxide Level 26 mEQ/L (20-30) Anion Gap 13 (5-15) Blood Urea Nitrogen 30 mg/dL (7-23) H Creatinine 0.7 mg/dL (0.7-1.2) Estimat Glomerular Filtration Rate > 60 mL/min (>60) Glucose Level 97 mg/dL (74-106) # Calcium Level 8.8 mg/dL (8.6-10.2) Intake and Output 11/10/16 11/11/16 19:00 07:00 Intake Total 2509 ml 2619 ml Output Total 500 ml 320 ml Balance 2009 ml 2299 ml Free Water 450 ml 450 ml IV Total 1409 ml 2039 ml Tube Feeding 650 ml 130 ml Output Urine Total 500 ml 320 ml # Bowel Movements 1 2 Objective General Appearance: moderate distress, thin EENT: PERRL/EOMI, normal ENT inspection Neck: non-tender, normal alignment, supple Cardiovascular: normal peripheral pulses, normal rate, regular rhythm, no gallop/murmur, no JVD Respiratory/Chest: Trach; Mech Vent; trach; respiratory distress, crackles/ rales, rhonchi - bilaterally, expiratory wheezing Abdomen: non tender, soft, no organomegaly, no mass, decreased bowel sounds Extremities: normal range of motion Skin: normal pigmentation, warm/dry Assessment/Plan Problem List: (1) Lung nodule (2) DVT (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 (3) Acute respiratory failure Assessment & Plan: S/P tracheostomy 10/03/16. Failed weaning trial. Cont vent per pulmonary (4) COPD exacerbation Assessment & Plan: Continue duoneb. Continue vent per pulmonary. (5) Pneumonia Assessment & Plan: MDR Acenitobacter. New RLL consolidation. Continue colistin inh, zyvox, diflucan and meropenem per ID (6) Leukocytosis Assessment & Plan: Improving. Await Culture results. Start meropenem, micafungin, colistin (inh) and linezolid per ID (7) Dysphagia Assessment & Plan: See GI consult- S/P PEG 10/04/16. (8) Hypoglycemia Assessment & Plan: D50 prn; decrease insulin sliding scale. (9) Dysuria Assessment & Plan: D/C garcia cath. (10) Severe sepsis Assessment & Plan: Blood cultures X2. Cont meropenem, colistin Inh, micafungin and linezolid per ID. (11) Hypotension Assessment & Plan: ICU status for pressors, (12) Gastric mass (13) Mass of colon Assessment & Plan: Cecum and colon masses. See GI note. (14) UTI (urinary tract infection) due to Enterococcus Assessment & Plan: VRE. See ID note. (15) Empyema Assessment & Plan: Possible per pulmonary. Cont Micafungin, meropenem, colistin (inh) and linezolid per ID Assessment/Plan Prognosis guraded. Transfer to ICU; full code. Discussed with ex-, Kimo , who claims to be power of drum drier. TADEO VERDIN November 11, 2016 12:02
--- NOTE | 2016-11-11 13:13 | Cardiac Electrophysiology PN ---
Assessment/Plan Assessment/Plan 1. Sinus tachycardia due to sepsis.Better on intravenous antibiotics 2. Intermittent hypotension, ? due to sepsis.On IV fluid and antibiotics.Off any hypotensive agents. 3. Severe pulmonary hypertension of 66 due to severe chronic obstructive pulmonary disease. 4. Ventilator-dependant respiratory failure, status post tracheostomy. 5. Dysphagia, status post percutaneous endoscopic gastrostomy placement. 6. Sepsis, on broad-spectrum intravenous antibiotics. 7. Chronic encephalopathy. 8. Polyps seen on CT in unprepared colon, follow up per Dr Yadira CHAVEZ RN Subjective Subjective On Vent via tracheostomy with PEG. Non verbal.Was transferred back from ICU as BP improved. Objective Last 24 Hour Vital Signs Date Time Temp Pulse Resp B/P Pulse Ox O2 Delivery O2 Flow Rate FiO2 11/11/16 12:11 50 11/11/16 12:11 118 11/11/16 11:20 122 16 50 11/11/16 11:00 124 17 111/71 100 Mechanical Ventilator 50 11/11/16 10:00 119 16 138/97 100 Mechanical Ventilator 50 11/11/16 09:10 126 16 99 Mechanical Ventilator 60 11/11/16 09:00 123 16 109/63 100 Mechanical Ventilator 50 11/11/16 08:59 130 16 100 Mechanical Ventilator 50 11/11/16 08:52 124 16 50 11/11/16 08:00 97.8 124 18 136/92 100 Mechanical Ventilator 50 11/11/16 08:00 123 11/11/16 08:00 50 11/11/16 07:06 125 16 50 11/11/16 07:00 125 27 127/77 100 Mechanical Ventilator 50 11/11/16 06:00 122 22 122/77 100 Mechanical Ventilator 50 11/11/16 05:00 124 28 141/76 100 Mechanical Ventilator 50 11/11/16 04:55 120 16 50 11/11/16 04:00 50 11/11/16 04:00 122 11/11/16 04:00 97.6 122 25 130/79 100 Mechanical Ventilator 50 11/11/16 03:00 122 31 140/68 100 Mechanical Ventilator 50 11/11/16 02:57 124 16 50 11/11/16 02:00 122 33 153/86 100 Mechanical Ventilator 50 11/11/16 01:30 118 28 139/82 100 Mechanical Ventilator 60 11/11/16 01:07 121 16 50 11/11/16 01:00 114 26 122/94 100 Mechanical Ventilator 60 11/11/16 00:30 114 30 94/62 100 Mechanical Ventilator 60 11/11/16 00:00 97.8 115 24 94/55 100 Mechanical Ventilator 60 11/11/16 00:00 50 11/10/16 23:30 118 19 87/67 99 Mechanical Ventilator 60 11/10/16 23:30 120 11/10/16 23:12 121 16 60 11/10/16 23:00 128 22 74/53 99 Mechanical Ventilator 60 11/10/16 22:30 125 84/54 11/10/16 22:00 97.6 121 21 64/39 100 Mechanical Ventilator 60 11/10/16 21:07 133 16 99 Mechanical Ventilator 60 11/10/16 20:57 131 16 98 Mechanical Ventilator 60 11/10/16 20:55 131 16 60 11/10/16 20:00 60 11/10/16 20:00 122 11/10/16 20:00 97.6 125 21 104/68 100 Mechanical Ventilator 60 11/10/16 19:16 129 16 60 11/10/16 18:30 108/80 11/10/16 17:07 117 16 50 11/10/16 16:00 125 11/10/16 16:00 60 11/10/16 16:00 98.9 119 22 86/55 98 Mechanical Ventilator 60 11/10/16 14:48 122 16 50 Intake and Output 11/10/16 11/11/16 19:00 07:00 Intake Total 2509 ml 2619 ml Output Total 500 ml 320 ml Balance 2009 ml 2299 ml Free Water 450 ml 450 ml IV Total 1409 ml 2039 ml Tube Feeding 650 ml 130 ml Output Urine Total 500 ml 320 ml # Bowel Movements 1 2 Laboratory Tests Test 11/11/16 04:10 White Blood Count 64.7 K/UL (4.8-10.8) *H Red Blood Count 3.23 M/UL (4.70-6.10) L Hemoglobin 8.8 G/DL (14.2-18.0) L Hematocrit 27.7 % (42.0-52.0) L Mean Corpuscular Volume 86 FL (80-99) Mean Corpuscular Hemoglobin 27.2 PG (27.0-31.0) Mean Corpuscular Hemoglobin Concent 31.7 G/DL (32.0-36.0) L Red Cell Distribution Width 15.3 % (11.6-14.8) H Platelet Count 395 K/UL (150-450) Mean Platelet Volume 6.8 FL (6.5-10.1) Neutrophils (%) (Auto) % (45.0-75.0) Lymphocytes (%) (Auto) % (20.0-45.0) Monocytes (%) (Auto) % (1.0-10.0) Eosinophils (%) (Auto) % (0.0-3.0) Basophils (%) (Auto) % (0.0-2.0) Differential Total Cells Counted 100 Neutrophils % (Manual) 85 % (45-75) H Lymphocytes % (Manual) 4 % (20-45) L Monocytes % (Manual) 2 % (1-10) Eosinophils % (Manual) 0 % (0-3) Basophils % (Manual) 0 % (0-2) Myelocytes % 2 % (0-0) H Band Neutrophils 7 % (0-8) Platelet Estimate Adequate Platelet Morphology Normal Polychromasia Occasional Hypochromasia 1+ Anisocytosis 1+ Sodium Level 135 mEQ/L (135-145) Potassium Level 5.5 mEQ/L (3.4-4.9) H Chloride Level 96 mEQ/L (98-107) L Carbon Dioxide Level 26 mEQ/L (20-30) Anion Gap 13 (5-15) Blood Urea Nitrogen 30 mg/dL (7-23) H Creatinine 0.7 mg/dL (0.7-1.2) Estimat Glomerular Filtration Rate > 60 mL/min (>60) Glucose Level 97 mg/dL (74-106) # Calcium Level 8.8 mg/dL (8.6-10.2) Objective HEAD AND NECK: No jugular venous distention, tracheostomy intact. LUNGS: Coarse rhonchi bilaterally. CARDIOVASCULAR: Tachycardic S1 and S2 with no gallop or murmur. ABDOMEN: Soft. Status post G-tube. EXTREMITIES: No pitting edema. OSWALD HILLS November 11, 2016 13:13
[2016-11-11 13:31] LABS: INR 1.3 (0.9-1.1); PROTHROMBIN TIME 12.9 SEC (9.30-11.50)
[2016-11-11] MEDS: Micafungin 100 MG in NS 110 ML IVPB SCH (21:13)
--- NOTE | 2016-11-11 22:21 | General Progress Note ---
Assessment/Plan Assessment/Plan Assessment - Colon polyps/mass seen on CT - COPD - respiratory failure - s/p trach and PEG - dysphagia - h/o OB (+) - Anemia Recommendations - check CEA --> 3.3 - elevate HOB - GT care - follow labs - ? level of care discussion Subjective Allergies: Coded Allergies: No Known Allergies (Unverified , 06/17/16) Subjective withdrawn no family at bedside tolerating feeds Objective Last 24 Hour Vital Signs Date Time Temp Pulse Resp B/P Pulse Ox O2 Delivery O2 Flow Rate FiO2 11/11/16 21:26 120 16 99 Mechanical Ventilator 60 11/11/16 21:16 114 18 50 11/11/16 21:16 114 18 98 Mechanical Ventilator 50 11/11/16 20:00 115 11/11/16 20:00 50 11/11/16 20:00 97.9 116 17 102/67 98 Mechanical Ventilator 40 11/11/16 19:24 116 17 50 11/11/16 16:54 121 17 50 11/11/16 16:24 50 11/11/16 16:24 118 11/11/16 16:24 97.7 18 97/71 100 Mechanical Ventilator 50 11/11/16 14:42 118 16 50 11/11/16 13:14 126 16 50 11/11/16 12:11 50 11/11/16 12:11 118 11/11/16 12:00 97.5 123 16 99/63 99 Mechanical Ventilator 50 11/11/16 11:20 122 16 50 11/11/16 11:00 124 17 111/71 100 Mechanical Ventilator 50 11/11/16 10:00 119 16 138/97 100 Mechanical Ventilator 50 11/11/16 09:10 126 16 99 Mechanical Ventilator 60 11/11/16 09:00 123 16 109/63 100 Mechanical Ventilator 50 11/11/16 08:59 130 16 100 Mechanical Ventilator 50 11/11/16 08:52 124 16 50 11/11/16 08:00 97.8 124 18 136/92 100 Mechanical Ventilator 50 11/11/16 08:00 123 11/11/16 08:00 50 11/11/16 07:06 125 16 50 11/11/16 07:00 125 27 127/77 100 Mechanical Ventilator 50 11/11/16 06:00 122 22 122/77 100 Mechanical Ventilator 50 11/11/16 05:00 124 28 141/76 100 Mechanical Ventilator 50 11/11/16 04:55 120 16 50 11/11/16 04:00 50 11/11/16 04:00 122 11/11/16 04:00 97.6 122 25 130/79 100 Mechanical Ventilator 50 11/11/16 03:00 122 31 140/68 100 Mechanical Ventilator 50 11/11/16 02:57 124 16 50 11/11/16 02:00 122 33 153/86 100 Mechanical Ventilator 50 11/11/16 01:30 118 28 139/82 100 Mechanical Ventilator 60 11/11/16 01:07 121 16 50 11/11/16 01:00 114 26 122/94 100 Mechanical Ventilator 60 11/11/16 00:30 114 30 94/62 100 Mechanical Ventilator 60 11/11/16 00:00 97.8 115 24 94/55 100 Mechanical Ventilator 60 11/11/16 00:00 50 11/10/16 23:30 118 19 87/67 99 Mechanical Ventilator 60 11/10/16 23:30 120 11/10/16 23:12 121 16 60 11/10/16 23:00 128 22 74/53 99 Mechanical Ventilator 60 11/10/16 22:30 125 84/54 Intake and Output 11/10/16 11/11/16 19:00 07:00 Intake Total 2509 ml 2619 ml Output Total 500 ml 320 ml Balance 2009 ml 2299 ml Free Water 450 ml 450 ml IV Total 1409 ml 2039 ml Tube Feeding 650 ml 130 ml Output Urine Total 500 ml 320 ml # Bowel Movements 1 2 Laboratory Tests 11/11/16 04:10: White Blood Count 64.7*H, Red Blood Count 3.23L, Hemoglobin 8.8L, Hematocrit 27.7L, Mean Corpuscular Volume 86, Mean Corpuscular Hemoglobin 27.2, Mean Corpuscular Hemoglobin Concent 31.7L, Red Cell Distribution Width 15.3H, Platelet Count 395, Mean Platelet Volume 6.8, Neutrophils (%) (Auto) , Lymphocytes (%) (Auto) , Monocytes (%) (Auto) , Eosinophils (%) (Auto) , Basophils (%) (Auto) , Differential Total Cells Counted 100, Neutrophils % ( Manual) 85H, Lymphocytes % (Manual) 4L, Monocytes % (Manual) 2, Eosinophils % ( Manual) 0, Basophils % (Manual) 0, Myelocytes % 2H, Band Neutrophils 7, Platelet Estimate Adequate, Platelet Morphology Normal, Polychromasia Occasional , Hypochromasia 1+, Anisocytosis 1+, Sodium Level 135, Potassium Level 5.5H, Chloride Level 96L, Carbon Dioxide Level 26, Anion Gap 13, Blood Urea Nitrogen 30H, Creatinine 0.7, Estimat Glomerular Filtration Rate > 60, Glucose Level 97# , Calcium Level 8.8 11/11/16 12:45: Prothrombin Time 12.9H, Prothromb Time International Ratio 1.3H, Activated Partial Thromboplast Time 33 Height (Feet): 6 Height (Inches): 2.00 Weight (Pounds): 126 Objective Elderly AA man NCAT (+) trach Coarse BS RRR soft NT abdomen, (+) GT poorly responsive ROSEMARY BURROUGHS November 11, 2016 22:21
--- NOTE | 2016-11-11 22:38 | General Progress Note ---
Assessment/Plan Assessment/Plan Assessment - Colon polyps/mass seen on CT - patient has declined GI w/u - COPD - respiratory failure - s/p trach and PEG - dysphagia - Leukocytosis - h/o OB (+) - Anemia - Poor PX Recommendations - check CEA --> 3.3 - elevate HOB - GT care - follow labs - ? level of care discussion Subjective Allergies: Coded Allergies: No Known Allergies (Unverified , 06/17/16) Subjective withdrawn d/w patient's ex- in waiting room to ICU and back last night d/w PMD and RN Objective Last 24 Hour Vital Signs Date Time Temp Pulse Resp B/P Pulse Ox O2 Delivery O2 Flow Rate FiO2 11/11/16 21:26 120 16 99 Mechanical Ventilator 60 11/11/16 21:16 114 18 50 11/11/16 21:16 114 18 98 Mechanical Ventilator 50 11/11/16 20:00 115 11/11/16 20:00 50 11/11/16 20:00 97.9 116 17 102/67 98 Mechanical Ventilator 40 11/11/16 19:24 116 17 50 11/11/16 16:54 121 17 50 11/11/16 16:24 50 11/11/16 16:24 118 11/11/16 16:24 97.7 18 97/71 100 Mechanical Ventilator 50 11/11/16 14:42 118 16 50 11/11/16 13:14 126 16 50 11/11/16 12:11 50 11/11/16 12:11 118 11/11/16 12:00 97.5 123 16 99/63 99 Mechanical Ventilator 50 11/11/16 11:20 122 16 50 11/11/16 11:00 124 17 111/71 100 Mechanical Ventilator 50 11/11/16 10:00 119 16 138/97 100 Mechanical Ventilator 50 11/11/16 09:10 126 16 99 Mechanical Ventilator 60 11/11/16 09:00 123 16 109/63 100 Mechanical Ventilator 50 11/11/16 08:59 130 16 100 Mechanical Ventilator 50 11/11/16 08:52 124 16 50 11/11/16 08:00 97.8 124 18 136/92 100 Mechanical Ventilator 50 11/11/16 08:00 123 11/11/16 08:00 50 11/11/16 07:06 125 16 50 11/11/16 07:00 125 27 127/77 100 Mechanical Ventilator 50 11/11/16 06:00 122 22 122/77 100 Mechanical Ventilator 50 11/11/16 05:00 124 28 141/76 100 Mechanical Ventilator 50 11/11/16 04:55 120 16 50 11/11/16 04:00 50 11/11/16 04:00 122 11/11/16 04:00 97.6 122 25 130/79 100 Mechanical Ventilator 50 11/11/16 03:00 122 31 140/68 100 Mechanical Ventilator 50 11/11/16 02:57 124 16 50 11/11/16 02:00 122 33 153/86 100 Mechanical Ventilator 50 11/11/16 01:30 118 28 139/82 100 Mechanical Ventilator 60 11/11/16 01:07 121 16 50 11/11/16 01:00 114 26 122/94 100 Mechanical Ventilator 60 11/11/16 00:30 114 30 94/62 100 Mechanical Ventilator 60 11/11/16 00:00 97.8 115 24 94/55 100 Mechanical Ventilator 60 11/11/16 00:00 50 11/10/16 23:30 118 19 87/67 99 Mechanical Ventilator 60 11/10/16 23:30 120 11/10/16 23:12 121 16 60 11/10/16 23:00 128 22 74/53 99 Mechanical Ventilator 60 Intake and Output 11/10/16 11/11/16 19:00 07:00 Intake Total 2509 ml 2619 ml Output Total 500 ml 320 ml Balance 2009 ml 2299 ml Free Water 450 ml 450 ml IV Total 1409 ml 2039 ml Tube Feeding 650 ml 130 ml Output Urine Total 500 ml 320 ml # Bowel Movements 1 2 Laboratory Tests 11/11/16 04:10: White Blood Count 64.7*H, Red Blood Count 3.23L, Hemoglobin 8.8L, Hematocrit 27.7L, Mean Corpuscular Volume 86, Mean Corpuscular Hemoglobin 27.2, Mean Corpuscular Hemoglobin Concent 31.7L, Red Cell Distribution Width 15.3H, Platelet Count 395, Mean Platelet Volume 6.8, Neutrophils (%) (Auto) , Lymphocytes (%) (Auto) , Monocytes (%) (Auto) , Eosinophils (%) (Auto) , Basophils (%) (Auto) , Differential Total Cells Counted 100, Neutrophils % ( Manual) 85H, Lymphocytes % (Manual) 4L, Monocytes % (Manual) 2, Eosinophils % ( Manual) 0, Basophils % (Manual) 0, Myelocytes % 2H, Band Neutrophils 7, Platelet Estimate Adequate, Platelet Morphology Normal, Polychromasia Occasional , Hypochromasia 1+, Anisocytosis 1+, Sodium Level 135, Potassium Level 5.5H, Chloride Level 96L, Carbon Dioxide Level 26, Anion Gap 13, Blood Urea Nitrogen 30H, Creatinine 0.7, Estimat Glomerular Filtration Rate > 60, Glucose Level 97# , Calcium Level 8.8 11/11/16 12:45: Prothrombin Time 12.9H, Prothromb Time International Ratio 1.3H, Activated Partial Thromboplast Time 33 Height (Feet): 6 Height (Inches): 2.00 Weight (Pounds): 126 Objective Elderly AA man NCAT (+) trach Coarse BS RRR soft NT abdomen, (+) GT poorly responsive ROSEMARY BURROUGHS November 11, 2016 22:38
[2016-11-12] VITALS: BP 122/66
[2016-11-12 04:00] VITALS: BP 102/59
[2016-11-12] MEDS: Meropenem 1 GM in NS 110 ML IVPB SCH ×3 (05:41→23:14)
[2016-11-12] MEDS: NovoLOG Insulin Flexpen SUBQ SCH ×4 (05:42→23:47)
[2016-11-12 06:03] LABS: MEAN CORPUSCULAR HEMOGLOBIN 26.2 PG (27.0-31.0); MEAN CORPUSCULAR HGB CONC 30.6 G/DL (32.0-36.0); MEAN CORPUSCULAR VOLUME 86 FL (80-99); MEAN PLATELET VOLUME 7.1 FL (6.5-10.1); PLATELET COUNT 371 K/UL (150-450); RED BLOOD COUNT 2.87 M/UL (4.70-6.10)
[2016-11-12 06:10] LABS: WHITE BLOOD COUNT 44.9 K/UL (4.8-10.8)
[2016-11-12 06:26] LABS: ANION GAP 11 (5-15); CALCIUM 8.6 mg/dL (8.6-10.2); CARBON DIOXIDE 30 mEQ/L (20-30); CHLORIDE 99 mEQ/L (98-107); CREATININE 0.7 mg/dL (0.7-1.2); GLOMERULAR FILTRATION RATE > 60 mL/min (>60); HEMOLYSIS 14; POTASSIUM 4.1 mEQ/L (3.4-4.9); SODIUM 140 mEQ/L (135-145)
[2016-11-12 08:12] VITALS: BP 91/59
[2016-11-12] MEDS: Colistin for inhalation INH SCH ×2 (08:56→23:02)
[2016-11-12 09:58] LABS: ANISOCYTOSIS 1+; BAND NEUTROPHILS % (MANUAL) 0 % (0-8); BASOPHILS % (MANUAL) 0 % (0-2); EOSINOPHILS % (MANUAL) 0 % (0-3); HYPOCHROMASIA 3+; LYMPHOCYTES % (MANUAL) 2 % (20-45); NEUTROPHILS % (MANUAL) 87 % (45-75); NUCLEATED RED BLOOD CELLS 1 /100 WBC; PLATELET ESTIMATE ADEQUATE; PLATELET MORPHOLOGY NORMAL; ROULEAUX 2+; TOTAL CELLS COUNTED 100
[2016-11-12] MEDS ORDERED: D5W 275ml ONE (10:11)
[2016-11-12] MEDS ORDERED: Tubing IV Secondary IV ONE ×2 (10:11→10:15)
[2016-11-12] MEDS ORDERED: NS 275ml ONE (10:15)
[2016-11-12] MEDS ORDERED: NS Irrig 1000ml ONE (10:15)
--- NOTE | 2016-11-12 10:31 | Infectious Diseases Prog Note ---
Assessment/Plan Assessment/Plan ASSESSMENT: 66 y/o male with: // VAP SCx: MDR ACB and PSA CT : Since previous exam of 2 days earlier, marked worsening of right lower lobe dense consolidation, consistent with rapidly progressing pneumonia. // probable UTI : UCx yeast and VRE // COPD exacerbation - delayed SCx 4+ PSA SP Rx - CXR 09/27: Lungs are hyperinflated. No new infiltrates - negative: influenza // Leukocytosis, improved , ro Empyema // Hypotension SP // Abd pain ?etio CDiff neg , LAC : Nl - Ct of Abd : 4.4 x 3 x 4.4 cm filling defect within the proximal ascending colon.Appearance is that of a polyp on a stalk. Size of this lesion raises concern for malignancy. // Ro C Diff Neg vs Isch colitis // Febrile low grade , SP // HIV and Hep B/C : neg // colon mass ro cancer , GI is following CT: Large cecal mass and other polypoid colonic masses, detailed previously , again demonstrated // - PEG 10/04 // Acute VDRF - intubated 09/20, 10/03 SP trach // Severe pulmonary HTN / grade I diastolic dysfunction / mod TR // Pulmonary nodules // Chronic RLE DVT // Tobacco abuse // [place] resident // Negative MRSA, VRE screens // NKDA // Full Code PLAN: - cont Merrem , Colistin INH , Zyvox and Mycamine d# 4 add Levaquin d# 2 ( 11/09 SP Vanco d# 6 / 10 and oral Vanco d# 5 ) ( 10/17 SP Ceftazidime d# 14 ) ( 10/13 SP Jairon nebs d# 14 ) ( 10/11 SP Flagyl d# 10 ) ( 10/04 SP oral Vanco d# 3 ) ( 09/24 SP amikacin, invanz d# 5 / 5 ) ( 09/21 SP IV vancomycin d# 2 ) - taper steroids per pulm - monitor CBC, temperatures - monitor BMP - monitor CXR - vent support, wean as tolerated - thoracentesis :P Subjective Allergies: Coded Allergies: No Known Allergies (Unverified , 06/17/16) Subjective leukocytes improved Objective Vital Signs Last 24 Hour Vital Signs Date Time Temp Pulse Resp B/P Pulse Ox O2 Delivery O2 Flow Rate FiO2 11/12/16 09:06 111 16 10 Mechanical Ventilator 40 11/12/16 08:57 80 16 40 11/12/16 08:56 90 16 97 Mechanical Ventilator 40 11/12/16 08:15 113 11/12/16 08:12 97.4 107 16 91/59 97 Mechanical Ventilator 40 11/12/16 08:00 40 11/12/16 07:23 137 16 50 11/12/16 06:00 120 11/12/16 05:25 101 18 50 11/12/16 04:00 50 11/12/16 04:00 98.0 120 16 102/59 93 Mechanical Ventilator 40 11/12/16 04:00 112 11/12/16 03:33 108 16 50 11/12/16 01:28 102 19 50 11/12/16 00:00 110 11/12/16 00:00 97.5 111 16 122/66 98 Mechanical Ventilator 40 11/12/16 00:00 50 11/11/16 23:28 102/67 11/11/16 23:27 110 17 50 11/11/16 21:26 120 16 99 Mechanical Ventilator 60 11/11/16 21:16 114 18 50 11/11/16 21:16 114 18 98 Mechanical Ventilator 50 11/11/16 20:00 115 11/11/16 20:00 50 11/11/16 20:00 97.9 116 17 102/67 98 Mechanical Ventilator 40 11/11/16 19:24 116 17 50 11/11/16 16:54 121 17 50 11/11/16 16:24 50 11/11/16 16:24 118 11/11/16 16:24 97.7 18 97/71 100 Mechanical Ventilator 50 11/11/16 14:42 118 16 50 11/11/16 13:14 126 16 50 11/11/16 12:11 50 11/11/16 12:11 118 11/11/16 12:00 97.5 123 16 99/63 99 Mechanical Ventilator 50 11/11/16 11:20 122 16 50 11/11/16 11:00 124 17 111/71 100 Mechanical Ventilator 50 Height (Feet): 6 Height (Inches): 2.00 Weight (Pounds): 126 HEENT: anicteric Respiratory/Chest: no respiratory distress Cardiovascular: regularly irregular Abdomen: no organomegaly Genitourinary: normal external genitalia Extremities: no cyanosis Microbiology Date/Time Source Procedure Growth Status 11/10/16 19:42 Blood Blood Culture - Preliminary NO GROWTH AFTER 24 HOURS Resulted 11/10/16 19:32 Blood Blood Culture - Preliminary NO GROWTH AFTER 24 HOURS Resulted 11/11/16 04:00 Sputum Induced Gram Stain - Final Resulted 11/11/16 04:00 Sputum Induced Sputum Culture - Preliminary NO GROWTH Resulted 11/11/16 03:45 Urine,Clean Catch Urine Culture - Preliminary NO GROWTH Resulted Laboratory Tests Test 11/11/16 12:45 11/12/16 04:16 Prothrombin Time 12.9 SEC (9.30-11.50) H Prothromb Time International Ratio 1.3 (0.9-1.1) H Activated Partial Thromboplast Time 33 SEC (23-33) White Blood Count 44.9 K/UL (4.8-10.8) *H Red Blood Count 2.87 M/UL (4.70-6.10) L Hemoglobin 7.5 G/DL (14.2-18.0) L Hematocrit 24.6 % (42.0-52.0) L Mean Corpuscular Volume 86 FL (80-99) Mean Corpuscular Hemoglobin 26.2 PG (27.0-31.0) L Mean Corpuscular Hemoglobin Concent 30.6 G/DL (32.0-36.0) L Red Cell Distribution Width 15.0 % (11.6-14.8) H Platelet Count 371 K/UL (150-450) Mean Platelet Volume 7.1 FL (6.5-10.1) Neutrophils (%) (Auto) % (45.0-75.0) Lymphocytes (%) (Auto) % (20.0-45.0) Monocytes (%) (Auto) % (1.0-10.0) Eosinophils (%) (Auto) % (0.0-3.0) Basophils (%) (Auto) % (0.0-2.0) Differential Total Cells Counted 100 Neutrophils % (Manual) 87 % (45-75) H Lymphocytes % (Manual) 2 % (20-45) L Monocytes % (Manual) 11 % (1-10) H Eosinophils % (Manual) 0 % (0-3) Basophils % (Manual) 0 % (0-2) Band Neutrophils 0 % (0-8) Nucleated Red Blood Cells 1 /100 WBC Platelet Estimate Adequate Platelet Morphology Normal Hypochromasia 3+ Anisocytosis 1+ Rouleau 2+ Sodium Level 140 mEQ/L (135-145) Potassium Level 4.1 mEQ/L (3.4-4.9) Chloride Level 99 mEQ/L (98-107) Carbon Dioxide Level 30 mEQ/L (20-30) Anion Gap 11 (5-15) Blood Urea Nitrogen 32 mg/dL (7-23) H Creatinine 0.7 mg/dL (0.7-1.2) Estimat Glomerular Filtration Rate > 60 mL/min (>60) Glucose Level 121 mg/dL (74-106) H Calcium Level 8.6 mg/dL (8.6-10.2) Current Medications Medications (Trade) Dose Ordered Sig/Shraddha Route PRN Reason Start Time Stop Time Status Last Admin Dose Admin Acetaminophen (Tylenol) 650 mg Q4H PRN ORAL fever>100.5 11/02/16 17:00 12/02/16 16:59 Acetaminophen 650 mg 650 mg Q4H PRN GT headache 11/03/16 08:00 12/03/16 07:59 11/10/16 08:37 Colistimethate Sodium 150 mg 150 mg Q12HR@10,22 INH 11/09/16 22:00 11/16/16 21:59 11/12/16 08:56 Dextrose (Dextrose 50%) STAT PRN IV Hypoglycemia 11/02/16 17:00 12/02/16 16:59 Insulin Aspart (NovoLOG) start when feeding started Q6HR SUBQ 11/02/16 18:00 12/02/16 17:59 11/12/16 05:42 Lansoprazole (Prevacid) 30 mg DAILY GT 10/31/16 09:00 11/30/16 08:59 11/12/16 08:20 Levofloxacin (Levaquin 750mg/ D5W) 150 ml @ 100 mls/hr Q24H IVPB 11/11/16 14:30 11/18/16 14:29 11/11/16 14:40 Linezolid (Zyvox) 300 ml @ 300 mls/hr Q12HR IVPB 11/09/16 21:00 11/16/16 20:59 11/12/16 08:20 Meropenem 1 gm/ Sodium Chloride 110 ml @ 220 mls/hr Q8HR IVPB 11/09/16 22:00 11/12/16 21:59 11/12/16 05:41 Metoclopramide HCl (Reglan) 10 mg THREE TIMES A DAY GT 10/24/16 19:00 11/23/16 18:59 11/12/16 08:20 Micafungin Sodium 100 mg/Sodium Chloride 110 ml @ 110 mls/hr Q24H IVPB 11/10/16 20:00 11/17/16 19:59 11/11/16 21:13 Norepinephrine Bitartrate 4 mg/ Dextrose 250 ml @ 0 mls/hr Q24H IV 11/10/16 23:45 12/10/16 23:44 Ondansetron HCl (Zofran) 4 mg Q6H PRN IVP Nausea & Vomiting 11/02/16 17:00 12/02/16 16:59 Polyethylene Glycol (Miralax) 17 gm DAILYPRN PRN GT Constipation 10/25/16 01:00 11/24/16 00:59 11/03/16 00:00 Sodium Chloride 500 ml @ 999 mls/hr PRN PRN IVPB For hypotension 11/09/16 17:15 12/09/16 17:14 11/10/16 22:00 Sodium Chloride 1,000 ml @ 75 mls/hr [id number] IV 11/11/16 01:00 12/11/16 00:59 11/12/16 03:58 KIMBERLEE HINKLE M.D. November 12, 2016 10:31
[2016-11-12 12:00] VITALS: BP 116/68
--- NOTE | 2016-11-12 13:25 | General Progress Note ---
Assessment/Plan Assessment/Plan Assessment - Colon polyps/mass seen on CT - patient has declined GI w/u - COPD - respiratory failure - s/p trach and PEG - dysphagia - Leukocytosis - h/o OB (+) - Anemia - gradual decline - Poor PX Recommendations - transfuse PRN - elevate HOB - abx - GT care / TF - follow labs - level of care discussion Subjective Allergies: Coded Allergies: No Known Allergies (Unverified , 06/17/16) Subjective weak arousable resting Objective Last 24 Hour Vital Signs Date Time Temp Pulse Resp B/P Pulse Ox O2 Delivery O2 Flow Rate FiO2 11/12/16 12:00 98.9 114 16 116/68 96 Mechanical Ventilator 40 11/12/16 12:00 40 11/12/16 10:58 121 16 40 11/12/16 09:06 111 16 10 Mechanical Ventilator 40 11/12/16 08:57 80 16 40 11/12/16 08:56 90 16 97 Mechanical Ventilator 40 11/12/16 08:15 113 11/12/16 08:12 97.4 107 16 91/59 97 Mechanical Ventilator 40 11/12/16 08:00 40 11/12/16 07:23 137 16 50 11/12/16 06:00 120 11/12/16 05:25 101 18 50 11/12/16 04:00 50 11/12/16 04:00 98.0 120 16 102/59 93 Mechanical Ventilator 40 11/12/16 04:00 112 11/12/16 03:33 108 16 50 11/12/16 01:28 102 19 50 11/12/16 00:00 110 11/12/16 00:00 97.5 111 16 122/66 98 Mechanical Ventilator 40 11/12/16 00:00 50 11/11/16 23:28 102/67 11/11/16 23:27 110 17 50 11/11/16 21:26 120 16 99 Mechanical Ventilator 60 11/11/16 21:16 114 18 50 11/11/16 21:16 114 18 98 Mechanical Ventilator 50 11/11/16 20:00 115 11/11/16 20:00 50 11/11/16 20:00 97.9 116 17 102/67 98 Mechanical Ventilator 40 11/11/16 19:24 116 17 50 11/11/16 16:54 121 17 50 11/11/16 16:24 50 11/11/16 16:24 118 11/11/16 16:24 97.7 18 97/71 100 Mechanical Ventilator 50 11/11/16 14:42 118 16 50 Intake and Output 11/11/16 11/12/16 19:00 07:00 Intake Total 2620 ml 1735 ml Output Total 375 ml 1000 ml Balance 2245 ml 735 ml Free Water 450 ml 150 ml IV Total 1535 ml 1455 ml Tube Feeding 585 ml 130 ml Other 50 ml Output Urine Total 375 ml 1000 ml # Bowel Movements 1 2 Laboratory Tests 11/12/16 04:16: White Blood Count 44.9*H, Red Blood Count 2.87L, Hemoglobin 7.5L, Hematocrit 24.6L, Mean Corpuscular Volume 86, Mean Corpuscular Hemoglobin 26.2L, Mean Corpuscular Hemoglobin Concent 30.6L, Red Cell Distribution Width 15.0H, Platelet Count 371, Mean Platelet Volume 7.1, Neutrophils (%) (Auto) , Lymphocytes (%) (Auto) , Monocytes (%) (Auto) , Eosinophils (%) (Auto) , Basophils (%) (Auto) , Differential Total Cells Counted 100, Neutrophils % ( Manual) 87H, Lymphocytes % (Manual) 2L, Monocytes % (Manual) 11H, Eosinophils % (Manual) 0, Basophils % (Manual) 0, Band Neutrophils 0, Nucleated Red Blood Cells 1, Platelet Estimate Adequate, Platelet Morphology Normal, Hypochromasia 3 +, Anisocytosis 1+, Rouleau 2+, Sodium Level 140, Potassium Level 4.1, Chloride Level 99, Carbon Dioxide Level 30, Anion Gap 11, Blood Urea Nitrogen 32H, Creatinine 0.7, Estimat Glomerular Filtration Rate > 60, Glucose Level 121H, Calcium Level 8.6 Height (Feet): 6 Height (Inches): 2.00 Weight (Pounds): 126 Objective Elderly AA man NCAT (+) trach Coarse BS RRR soft NT abdomen, (+) GT poorly responsive ROSEMARY BURROUGHS November 12, 2016 13:25
[2016-11-12] MEDS: Acetaminophen 650mg/20.3ml GT PRN (13:31)
[2016-11-12] MEDS: Levalbuterol Inh UD 1.25mg/0.5ml HHN PRN (14:56)
[2016-11-12 15:16] LABS: MEAN CORPUSCULAR HEMOGLOBIN 25.5 PG (27.0-31.0); MEAN CORPUSCULAR HGB CONC 29.7 G/DL (32.0-36.0); MEAN CORPUSCULAR VOLUME 86 FL (80-99); MEAN PLATELET VOLUME 6.9 FL (6.5-10.1); PLATELET COUNT 412 K/UL (150-450); RED BLOOD COUNT 3.08 M/UL (4.70-6.10); RED CELL DISTRIBUTION WIDTH 14.7 % (11.6-14.8)
[2016-11-12 15:20] LABS: WHITE BLOOD COUNT 44.1 K/UL (4.8-10.8)
--- NOTE | 2016-11-12 15:38 | Cardiac Electrophysiology PN ---
Assessment/Plan Assessment/Plan 1. Sinus tachycardia due to sepsis.Better on intravenous antibiotics 2. Intermittent hypotension, ? due to sepsis.On IV fluid and antibiotics. 3. Severe pulmonary hypertension of 66 due to severe chronic obstructive pulmonary disease. 4. Ventilator-dependant respiratory failure, status post tracheostomy. 5. Dysphagia, status post percutaneous endoscopic gastrostomy placement. 6. Sepsis, on broad-spectrum intravenous antibiotics. 7. Chronic encephalopathy. 8. Polyps seen on CT in unprepared colon, Declined GI work up per Dr Yadira CHAVEZ RN Subjective Subjective On Vent via tracheostomy with PEG.No events overnight. On JORDAN. Objective Last 24 Hour Vital Signs Date Time Temp Pulse Resp B/P Pulse Ox O2 Delivery O2 Flow Rate FiO2 11/12/16 15:01 133 16 40 11/12/16 15:00 133 16 100 Mechanical Ventilator 40 11/12/16 13:29 98 16 40 11/12/16 12:00 98.9 114 16 116/68 96 Mechanical Ventilator 40 11/12/16 12:00 40 11/12/16 11:49 110 11/12/16 10:58 121 16 40 11/12/16 09:06 111 16 10 Mechanical Ventilator 40 11/12/16 08:57 80 16 40 11/12/16 08:56 90 16 97 Mechanical Ventilator 40 11/12/16 08:15 113 11/12/16 08:12 97.4 107 16 91/59 97 Mechanical Ventilator 40 11/12/16 08:00 40 11/12/16 07:23 137 16 50 11/12/16 06:00 120 11/12/16 05:25 101 18 50 11/12/16 04:00 50 11/12/16 04:00 98.0 120 16 102/59 93 Mechanical Ventilator 40 11/12/16 04:00 112 11/12/16 03:33 108 16 50 11/12/16 01:28 102 19 50 11/12/16 00:00 110 11/12/16 00:00 97.5 111 16 122/66 98 Mechanical Ventilator 40 11/12/16 00:00 50 11/11/16 23:28 102/67 11/11/16 23:27 110 17 50 11/11/16 21:26 120 16 99 Mechanical Ventilator 60 11/11/16 21:16 114 18 50 11/11/16 21:16 114 18 98 Mechanical Ventilator 50 11/11/16 20:00 115 11/11/16 20:00 50 11/11/16 20:00 97.9 116 17 102/67 98 Mechanical Ventilator 40 11/11/16 19:24 116 17 50 11/11/16 16:54 121 17 50 11/11/16 16:24 50 11/11/16 16:24 118 11/11/16 16:24 97.7 18 97/71 100 Mechanical Ventilator 50 Intake and Output 11/11/16 11/12/16 19:00 07:00 Intake Total 2620 ml 1735 ml Output Total 375 ml 1000 ml Balance 2245 ml 735 ml Free Water 450 ml 150 ml IV Total 1535 ml 1455 ml Tube Feeding 585 ml 130 ml Other 50 ml Output Urine Total 375 ml 1000 ml # Bowel Movements 1 2 Laboratory Tests Test 11/12/16 04:16 11/12/16 14:50 White Blood Count 44.9 K/UL (4.8-10.8) *H 44.1 K/UL (4.8-10.8) *H Red Blood Count 2.87 M/UL (4.70-6.10) L 3.08 M/UL (4.70-6.10) L Hemoglobin 7.5 G/DL (14.2-18.0) L 7.9 G/DL (14.2-18.0) L Hematocrit 24.6 % (42.0-52.0) L 26.4 % (42.0-52.0) L Mean Corpuscular Volume 86 FL (80-99) 86 FL (80-99) Mean Corpuscular Hemoglobin 26.2 PG (27.0-31.0) L 25.5 PG (27.0-31.0) L Mean Corpuscular Hemoglobin Concent 30.6 G/DL (32.0-36.0) L 29.7 G/DL (32.0-36.0) L Red Cell Distribution Width 15.0 % (11.6-14.8) H 14.7 % (11.6-14.8) Platelet Count 371 K/UL (150-450) 412 K/UL (150-450) Mean Platelet Volume 7.1 FL (6.5-10.1) 6.9 FL (6.5-10.1) Neutrophils (%) (Auto) % (45.0-75.0) % (45.0-75.0) Lymphocytes (%) (Auto) % (20.0-45.0) % (20.0-45.0) Monocytes (%) (Auto) % (1.0-10.0) % (1.0-10.0) Eosinophils (%) (Auto) % (0.0-3.0) % (0.0-3.0) Basophils (%) (Auto) % (0.0-2.0) % (0.0-2.0) Differential Total Cells Counted 100 Neutrophils % (Manual) 87 % (45-75) H Pending Lymphocytes % (Manual) 2 % (20-45) L Pending Monocytes % (Manual) 11 % (1-10) H Eosinophils % (Manual) 0 % (0-3) Basophils % (Manual) 0 % (0-2) Band Neutrophils 0 % (0-8) Nucleated Red Blood Cells 1 /100 WBC Platelet Estimate Adequate Pending Platelet Morphology Normal Pending Hypochromasia 3+ Anisocytosis 1+ Rouleau 2+ Sodium Level 140 mEQ/L (135-145) Potassium Level 4.1 mEQ/L (3.4-4.9) Chloride Level 99 mEQ/L (98-107) Carbon Dioxide Level 30 mEQ/L (20-30) Anion Gap 11 (5-15) Blood Urea Nitrogen 32 mg/dL (7-23) H Creatinine 0.7 mg/dL (0.7-1.2) Estimat Glomerular Filtration Rate > 60 mL/min (>60) Glucose Level 121 mg/dL (74-106) H Calcium Level 8.6 mg/dL (8.6-10.2) Microbiology Date/Time Source Procedure Growth Status 11/10/16 19:42 Blood Blood Culture - Preliminary NO GROWTH AFTER 24 HOURS Resulted 11/10/16 19:32 Blood Blood Culture - Preliminary NO GROWTH AFTER 24 HOURS Resulted 11/11/16 04:00 Sputum Induced Gram Stain - Final Resulted 11/11/16 04:00 Sputum Induced Sputum Culture - Preliminary NO GROWTH Resulted 11/11/16 03:45 Urine,Clean Catch Urine Culture - Preliminary NO GROWTH Resulted Objective HEAD AND NECK: No jugular venous distention, tracheostomy intact. LUNGS: Coarse rhonchi bilaterally. CARDIOVASCULAR: Tachycardic S1 and S2 with no gallop or murmur. ABDOMEN: Soft. Status post G-tube. EXTREMITIES: No pitting edema. OSWALD HILLS November 12, 2016 15:38
--- NOTE | 2016-11-12 15:53 | Cardiology Report ---
APPROVED REPORT EKG Measurement Heart [id number] Sinus tachycardia Right atrial enlargement Borderline ECG
[2016-11-12 16:00] VITALS: BP 111/76
--- NOTE | 2016-11-12 16:21 | Pulmonology Progress Note ---
Assessment/Plan Problems: (1) Severe sepsis (2) Abdominal distention (3) Respiratory failure (4) COPD exacerbation (5) Emphysema of lung (6) Colonic mass Assessment/Plan US of chest didn't show any effusion continue current vent setting, titrate fio2 to sat of 92% not tolerating weaning Subjective ROS Limited/Unobtainable: No Constitutional: Reports: no symptoms HEENT: Repors: no symptoms Respiratory: Reports: no symptoms Allergies: Coded Allergies: No Known Allergies (Unverified , 06/17/16) Objective Last 24 Hour Vital Signs Date Time Temp Pulse Resp B/P Pulse Ox O2 Delivery O2 Flow Rate FiO2 11/12/16 15:01 133 16 40 11/12/16 15:00 133 16 100 Mechanical Ventilator 40 11/12/16 13:29 98 16 40 11/12/16 12:00 98.9 114 16 116/68 96 Mechanical Ventilator 40 11/12/16 12:00 40 11/12/16 11:49 110 11/12/16 10:58 121 16 40 11/12/16 09:06 111 16 10 Mechanical Ventilator 40 11/12/16 08:57 80 16 40 11/12/16 08:56 90 16 97 Mechanical Ventilator 40 11/12/16 08:15 113 11/12/16 08:12 97.4 107 16 91/59 97 Mechanical Ventilator 40 11/12/16 08:00 40 11/12/16 07:23 137 16 50 11/12/16 06:00 120 11/12/16 05:25 101 18 50 11/12/16 04:00 50 11/12/16 04:00 98.0 120 16 102/59 93 Mechanical Ventilator 40 11/12/16 04:00 112 11/12/16 03:33 108 16 50 11/12/16 01:28 102 19 50 11/12/16 00:00 110 11/12/16 00:00 97.5 111 16 122/66 98 Mechanical Ventilator 40 11/12/16 00:00 50 11/11/16 23:28 102/67 11/11/16 23:27 110 17 50 11/11/16 21:26 120 16 99 Mechanical Ventilator 60 11/11/16 21:16 114 18 50 11/11/16 21:16 114 18 98 Mechanical Ventilator 50 11/11/16 20:00 115 11/11/16 20:00 50 11/11/16 20:00 97.9 116 17 102/67 98 Mechanical Ventilator 40 11/11/16 19:24 116 17 50 11/11/16 16:54 121 17 50 11/11/16 16:24 50 11/11/16 16:24 118 11/11/16 16:24 97.7 18 97/71 100 Mechanical Ventilator 50 Intake and Output 11/11/16 11/12/16 19:00 07:00 Intake Total 2620 ml 1735 ml Output Total 375 ml 1000 ml Balance 2245 ml 735 ml Free Water 450 ml 150 ml IV Total 1535 ml 1455 ml Tube Feeding 585 ml 130 ml Other 50 ml Output Urine Total 375 ml 1000 ml # Bowel Movements 1 2 Objective Status: awake HEENT: atraumatic, normocephalic Lungs: clear, decreased breath sounds Heart: HR/BP stable Abdomen: soft, non-tender Extremities: no C/C/E, edema Microbiology Date/Time Source Procedure Growth Status 11/10/16 19:42 Blood Blood Culture - Preliminary NO GROWTH AFTER 24 HOURS Resulted 11/10/16 19:32 Blood Blood Culture - Preliminary NO GROWTH AFTER 24 HOURS Resulted 11/11/16 04:00 Sputum Induced Gram Stain - Final Resulted 11/11/16 04:00 Sputum Induced Sputum Culture - Preliminary NO GROWTH Resulted 11/11/16 03:45 Urine,Clean Catch Urine Culture - Preliminary NO GROWTH Resulted Laboratory Tests 11/12/16 04:16: White Blood Count 44.9*H, Red Blood Count 2.87L, Hemoglobin 7.5L, Hematocrit 24.6L, Mean Corpuscular Volume 86, Mean Corpuscular Hemoglobin 26.2L, Mean Corpuscular Hemoglobin Concent 30.6L, Red Cell Distribution Width 15.0H, Platelet Count 371, Mean Platelet Volume 7.1, Neutrophils (%) (Auto) , Lymphocytes (%) (Auto) , Monocytes (%) (Auto) , Eosinophils (%) (Auto) , Basophils (%) (Auto) , Differential Total Cells Counted 100, Neutrophils % ( Manual) 87H, Lymphocytes % (Manual) 2L, Monocytes % (Manual) 11H, Eosinophils % (Manual) 0, Basophils % (Manual) 0, Band Neutrophils 0, Nucleated Red Blood Cells 1, Platelet Estimate Adequate, Platelet Morphology Normal, Hypochromasia 3 +, Anisocytosis 1+, Rouleau 2+, Sodium Level 140, Potassium Level 4.1, Chloride Level 99, Carbon Dioxide Level 30, Anion Gap 11, Blood Urea Nitrogen 32H, Creatinine 0.7, Estimat Glomerular Filtration Rate > 60, Glucose Level 121H, Calcium Level 8.6 11/12/16 14:50: White Blood Count 44.1*H, Red Blood Count 3.08L, Hemoglobin 7.9L, Hematocrit 26.4L, Mean Corpuscular Volume 86, Mean Corpuscular Hemoglobin 25.5L, Mean Corpuscular Hemoglobin Concent 29.7L, Red Cell Distribution Width 14.7, Platelet Count 412, Mean Platelet Volume 6.9, Neutrophils (%) (Auto) , Lymphocytes (%) (Auto) , Monocytes (%) (Auto) , Eosinophils (%) (Auto) , Basophils (%) (Auto) , Neutrophils % (Manual) [Pending], Lymphocytes % (Manual) [Pending], Platelet Estimate [Pending], Platelet Morphology [Pending] Current Medications Medications (Trade) Dose Ordered Sig/Shraddha Route PRN Reason Start Time Stop Time Status Last Admin Dose Admin Acetaminophen (Tylenol) 650 mg Q4H PRN ORAL fever>100.5 11/02/16 17:00 12/02/16 16:59 Acetaminophen 650 mg 650 mg Q4H PRN GT headache 11/03/16 08:00 12/03/16 07:59 11/12/16 13:31 Colistimethate Sodium 150 mg 150 mg Q12HR@10,22 INH 11/09/16 22:00 11/16/16 21:59 11/12/16 08:56 Dextrose (Dextrose 50%) STAT PRN IV Hypoglycemia 11/02/16 17:00 12/02/16 16:59 Insulin Aspart (NovoLOG) start when feeding started Q6HR SUBQ 11/02/16 18:00 12/02/16 17:59 11/12/16 11:26 Lansoprazole (Prevacid) 30 mg DAILY GT 10/31/16 09:00 11/30/16 08:59 11/12/16 08:20 Levalbuterol HCl (Xopenex) 1.25 mg Q4H PRN HHN Shortness of Breath 11/12/16 13:30 11/17/16 13:29 11/12/16 14:56 Levofloxacin (Levaquin 750mg/ D5W) 150 ml @ 100 mls/hr Q24H IVPB 11/11/16 14:30 11/18/16 14:29 11/12/16 14:35 Linezolid (Zyvox) 300 ml @ 300 mls/hr Q12HR IVPB 11/09/16 21:00 11/16/16 20:59 11/12/16 08:20 Meropenem 1 gm/ Sodium Chloride 110 ml @ 220 mls/hr Q8HR IVPB 11/09/16 22:00 11/17/16 21:59 11/12/16 13:32 Metoclopramide HCl (Reglan) 10 mg THREE TIMES A DAY GT 10/24/16 19:00 11/23/16 18:59 11/12/16 13:31 Micafungin Sodium 100 mg/Sodium Chloride 110 ml @ 110 mls/hr Q24H IVPB 11/10/16 20:00 11/17/16 19:59 11/11/16 21:13 Ondansetron HCl (Zofran) 4 mg Q6H PRN IVP Nausea & Vomiting 11/02/16 17:00 12/02/16 16:59 Polyethylene Glycol (Miralax) 17 gm DAILYPRN PRN GT Constipation 10/25/16 01:00 11/24/16 00:59 11/03/16 00:00 Sodium Chloride 500 ml @ 999 mls/hr PRN PRN IVPB For hypotension 11/09/16 17:15 12/09/16 17:14 11/10/16 22:00 Sodium Chloride 1,000 ml @ 75 mls/hr [id number] IV 11/11/16 01:00 12/11/16 00:59 11/12/16 03:58 REN WRIGHT November 12, 2016 16:21
--- NOTE | 2016-11-12 16:47 | Internal Med Progress Note ---
Subjective Date of Service: November 12, 2016 Physician Name Tadeo Verdin Attending Physician Steve Rader MD Current Medications Medications (Trade) Dose Ordered Sig/Shraddha Route PRN Reason Start Time Stop Time Status Last Admin Dose Admin Acetaminophen (Tylenol) 650 mg Q4H PRN ORAL fever>100.5 11/02/16 17:00 12/02/16 16:59 Acetaminophen 650 mg 650 mg Q4H PRN GT headache 11/03/16 08:00 12/03/16 07:59 11/12/16 13:31 Colistimethate Sodium 150 mg 150 mg Q12HR@10,22 INH 11/09/16 22:00 11/16/16 21:59 11/12/16 08:56 Dextrose (Dextrose 50%) STAT PRN IV Hypoglycemia 11/02/16 17:00 12/02/16 16:59 Insulin Aspart (NovoLOG) start when feeding started Q6HR SUBQ 11/02/16 18:00 12/02/16 17:59 11/12/16 11:26 Lansoprazole (Prevacid) 30 mg DAILY GT 10/31/16 09:00 11/30/16 08:59 11/12/16 08:20 Levalbuterol HCl (Xopenex) 1.25 mg Q4H PRN HHN Shortness of Breath 11/12/16 13:30 11/17/16 13:29 11/12/16 14:56 Levofloxacin (Levaquin 750mg/ D5W) 150 ml @ 100 mls/hr Q24H IVPB 11/11/16 14:30 11/18/16 14:29 11/12/16 14:35 Linezolid (Zyvox) 300 ml @ 300 mls/hr Q12HR IVPB 11/09/16 21:00 11/16/16 20:59 11/12/16 08:20 Meropenem 1 gm/ Sodium Chloride 110 ml @ 220 mls/hr Q8HR IVPB 11/09/16 22:00 11/17/16 21:59 11/12/16 13:32 Metoclopramide HCl (Reglan) 10 mg THREE TIMES A DAY GT 10/24/16 19:00 11/23/16 18:59 11/12/16 13:31 Micafungin Sodium 100 mg/Sodium Chloride 110 ml @ 110 mls/hr Q24H IVPB 11/10/16 20:00 11/17/16 19:59 11/11/16 21:13 Ondansetron HCl (Zofran) 4 mg Q6H PRN IVP Nausea & Vomiting 11/02/16 17:00 12/02/16 16:59 Polyethylene Glycol (Miralax) 17 gm DAILYPRN PRN GT Constipation 10/25/16 01:00 11/24/16 00:59 11/03/16 00:00 Sodium Chloride 500 ml @ 999 mls/hr PRN PRN IVPB For hypotension 11/09/16 17:15 12/09/16 17:14 11/10/16 22:00 Sodium Chloride 1,000 ml @ 75 mls/hr [id number] IV 11/11/16 01:00 12/11/16 00:59 11/12/16 03:58 Allergies: Coded Allergies: No Known Allergies (Unverified , 06/17/16) ROS Limited/Unobtainable: Yes Subjective 66 YO M admitted with respiratory failure. JORDAN. Intubated with trach. Cover for Int Med-Dr Rader. Worsening anemia. Objective Last Vital Signs Date Time Temp Pulse Resp B/P Pulse Ox O2 Delivery O2 Flow Rate FiO2 11/12/16 16:00 40 11/12/16 15:01 133 16 11/12/16 15:00 100 Mechanical Ventilator 11/12/16 12:00 98.9 116/68 11/06/16 10:35 10.0 Laboratory Tests Test 11/12/16 04:16 11/12/16 14:50 White Blood Count 44.9 K/UL (4.8-10.8) *H 44.1 K/UL (4.8-10.8) *H Red Blood Count 2.87 M/UL (4.70-6.10) L 3.08 M/UL (4.70-6.10) L Hemoglobin 7.5 G/DL (14.2-18.0) L 7.9 G/DL (14.2-18.0) L Hematocrit 24.6 % (42.0-52.0) L 26.4 % (42.0-52.0) L Mean Corpuscular Volume 86 FL (80-99) 86 FL (80-99) Mean Corpuscular Hemoglobin 26.2 PG (27.0-31.0) L 25.5 PG (27.0-31.0) L Mean Corpuscular Hemoglobin Concent 30.6 G/DL (32.0-36.0) L 29.7 G/DL (32.0-36.0) L Red Cell Distribution Width 15.0 % (11.6-14.8) H 14.7 % (11.6-14.8) Platelet Count 371 K/UL (150-450) 412 K/UL (150-450) Mean Platelet Volume 7.1 FL (6.5-10.1) 6.9 FL (6.5-10.1) Neutrophils (%) (Auto) % (45.0-75.0) % (45.0-75.0) Lymphocytes (%) (Auto) % (20.0-45.0) % (20.0-45.0) Monocytes (%) (Auto) % (1.0-10.0) % (1.0-10.0) Eosinophils (%) (Auto) % (0.0-3.0) % (0.0-3.0) Basophils (%) (Auto) % (0.0-2.0) % (0.0-2.0) Differential Total Cells Counted 100 Neutrophils % (Manual) 87 % (45-75) H Pending Lymphocytes % (Manual) 2 % (20-45) L Pending Monocytes % (Manual) 11 % (1-10) H Eosinophils % (Manual) 0 % (0-3) Basophils % (Manual) 0 % (0-2) Band Neutrophils 0 % (0-8) Nucleated Red Blood Cells 1 /100 WBC Platelet Estimate Adequate Pending Platelet Morphology Normal Pending Hypochromasia 3+ Anisocytosis 1+ Rouleau 2+ Sodium Level 140 mEQ/L (135-145) Potassium Level 4.1 mEQ/L (3.4-4.9) Chloride Level 99 mEQ/L (98-107) Carbon Dioxide Level 30 mEQ/L (20-30) Anion Gap 11 (5-15) Blood Urea Nitrogen 32 mg/dL (7-23) H Creatinine 0.7 mg/dL (0.7-1.2) Estimat Glomerular Filtration Rate > 60 mL/min (>60) Glucose Level 121 mg/dL (74-106) H Calcium Level 8.6 mg/dL (8.6-10.2) Microbiology Date/Time Source Procedure Growth Status 11/10/16 19:42 Blood Blood Culture - Preliminary NO GROWTH AFTER 24 HOURS Resulted 11/10/16 19:32 Blood Blood Culture - Preliminary NO GROWTH AFTER 24 HOURS Resulted 11/11/16 04:00 Sputum Induced Gram Stain - Final Resulted 11/11/16 04:00 Sputum Induced Sputum Culture - Preliminary NO GROWTH Resulted 11/11/16 03:45 Urine,Clean Catch Urine Culture - Preliminary NO GROWTH Resulted Intake and Output 11/11/16 11/12/16 19:00 07:00 Intake Total 2620 ml 1735 ml Output Total 375 ml 1000 ml Balance 2245 ml 735 ml Free Water 450 ml 150 ml IV Total 1535 ml 1455 ml Tube Feeding 585 ml 130 ml Other 50 ml Output Urine Total 375 ml 1000 ml # Bowel Movements 1 2 Objective General Appearance: moderate distress, thin EENT: PERRL/EOMI, normal ENT inspection Neck: non-tender, normal alignment, supple Cardiovascular: normal peripheral pulses, normal rate, regular rhythm, no gallop/murmur, no JVD Respiratory/Chest: Trach; Mech Vent; trach; respiratory distress, crackles/ rales, rhonchi - bilaterally, expiratory wheezing Abdomen: non tender, soft, no organomegaly, no mass, decreased bowel sounds Extremities: normal range of motion Skin: normal pigmentation, warm/dry Assessment/Plan Problem List: (1) Lung nodule (2) DVT (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 (3) Acute respiratory failure Assessment & Plan: S/P tracheostomy 10/03/16. Failed weaning trial. Cont vent per pulmonary (4) COPD exacerbation Assessment & Plan: Continue duoneb. Continue vent per pulmonary. (5) Pneumonia Assessment & Plan: MDR Acenitobacter. New RLL consolidation. Continue colistin inh, micafungin, linezolid, levaquin and meropenem per ID (6) Leukocytosis Assessment & Plan: Improving. Await Culture results. Start meropenem, levaquin, micafungin, colistin (inh) and linezolid per ID (7) Dysphagia Assessment & Plan: See GI consult- S/P PEG 10/04/16. (8) Hypoglycemia Assessment & Plan: D50 prn; decrease insulin sliding scale. (9) Dysuria Assessment & Plan: D/C garcia cath. (10) Severe sepsis Assessment & Plan: Blood cultures X2. Cont meropenem, colistin Inh, levaquin, micafungin and linezolid per ID. (11) Hypotension Assessment & Plan: ICU status for pressors, (12) Gastric mass (13) Mass of colon Assessment & Plan: Cecum and colon masses. See GI note. (14) UTI (urinary tract infection) due to Enterococcus Assessment & Plan: VRE. See ID note. (15) Empyema Assessment & Plan: Possible per pulmonary. Cont Micafungin, meropenem, colistin (inh) and linezolid per ID (16) Anemia Assessment & Plan: Worsening. Transfuse 1 unit PRBC Status: not improved Assessment/Plan Prognosis guraded. Transfer to ICU; full code. Discussed with ex-, Kimo , who claims to be power of district attorney. TADEO VERDIN November 12, 2016 16:47
[2016-11-12 17:22] LABS: BAND NEUTROPHILS % (MANUAL) 10 % (0-8); LYMPHOCYTES % (MANUAL) 1 % (20-45); NEUTROPHILS % (MANUAL) 87 % (45-75); TOTAL CELLS COUNTED 100
[2016-11-12 17:23] LABS: BASOPHILS % (MANUAL) 0 % (0-2); EOSINOPHILS % (MANUAL) 0 % (0-3); PLATELET ESTIMATE ADEQUATE
[2016-11-12 17:24] LABS: ANISOCYTOSIS 1+; HYPOCHROMASIA 2+; PLATELET MORPHOLOGY NORMAL; POLYCHROMASIA 1+
[2016-11-12] MEDS ORDERED: Ipratropium 0.02% Inh Soln 2.5ml UD ONE (19:37)
[2016-11-12 20:00] VITALS: BP 110/77
[2016-11-12] MEDS: Micafungin 100 MG in NS 110 ML IVPB SCH (21:44)
[2016-11-13] VITALS: BP 110/71
[2016-11-13 04:00] VITALS: BP 93/62
[2016-11-13] MEDS: Meropenem 1 GM in NS 110 ML IVPB SCH ×3 (05:21→22:20)
[2016-11-13] MEDS: NovoLOG Insulin Flexpen SUBQ SCH ×4 (05:26→23:46)
[2016-11-13 06:32] LABS: MEAN CORPUSCULAR HEMOGLOBIN 26.7 PG (27.0-31.0); MEAN CORPUSCULAR HGB CONC 31.2 G/DL (32.0-36.0); MEAN CORPUSCULAR VOLUME 86 FL (80-99); MEAN PLATELET VOLUME 6.6 FL (6.5-10.1); PLATELET COUNT 360 K/UL (150-450); RED BLOOD COUNT 3.16 M/UL (4.70-6.10); RED CELL DISTRIBUTION WIDTH 14.7 % (11.6-14.8)
[2016-11-13 06:58] LABS: ANION GAP 9 (5-15); CALCIUM 8.3 mg/dL (8.6-10.2); CARBON DIOXIDE 31 mEQ/L (20-30); CHLORIDE 101 mEQ/L (98-107); CREATININE 0.7 mg/dL (0.7-1.2); GLOMERULAR FILTRATION RATE > 60 mL/min (>60); HEMOLYSIS 3; SODIUM 141 mEQ/L (135-145)
[2016-11-13 07:03] LABS: WHITE BLOOD COUNT 31.8 K/UL (4.8-10.8)
[2016-11-13] MEDS: Levalbuterol Inh UD 1.25mg/0.5ml HHN PRN ×3 (07:21→15:44)
[2016-11-13 08:08] VITALS: BP 87/42
[2016-11-13 08:48] LABS: ANISOCYTOSIS 1+; BAND NEUTROPHILS % (MANUAL) 1 % (0-8); BASOPHILS % (MANUAL) 0 % (0-2); EOSINOPHILS % (MANUAL) 0 % (0-3); HYPOCHROMASIA 2+; LYMPHOCYTES % (MANUAL) 2 % (20-45); NEUTROPHILS % (MANUAL) 92 % (45-75); PLATELET ESTIMATE ADEQUATE; PLATELET MORPHOLOGY NORMAL; TOTAL CELLS COUNTED 100
--- NOTE | 2016-11-13 09:04 | Diagnostic Imaging Report ---
Indication:pleural effusion Technique: Grayscale and duplex Doppler imaging of the chest performed. Comparison: None Findings: No pleural effusion demonstrated. Dense consolidated lung or mass demonstrated at the right lung base. Impression: No pleural effusion
[2016-11-13] MEDS: Colistin for inhalation INH SCH ×2 (09:06→19:50)
[2016-11-13 12:00] VITALS: BP 92/60
--- NOTE | 2016-11-13 12:41 | Pulmonology Progress Note ---
Assessment/Plan Problems: (1) Severe sepsis (2) Abdominal distention (3) Respiratory failure (4) COPD exacerbation (5) Emphysema of lung (6) Colonic mass Assessment/Plan cont Merrem , Colistin INH , Zyvox and Mycamine add Levaquin ( 11/09 SP Vanco d# 6 / 10 and oral Vanco d# 5 ) continue current vent setting, titrate fio2 to sat of 92% not tolerating weaning Subjective ROS Limited/Unobtainable: No Constitutional: Reports: no symptoms HEENT: Repors: no symptoms Respiratory: Reports: no symptoms Cardiovascular: Reports: no symptoms Gastrointestinal/Abdominal: Reports: no symptoms Allergies: Coded Allergies: No Known Allergies (Unverified , 06/17/16) Objective Last 24 Hour Vital Signs Date Time Temp Pulse Resp B/P Pulse Ox O2 Delivery O2 Flow Rate FiO2 11/13/16 12:00 97.2 111 15 92/60 100 Mechanical Ventilator 40 11/13/16 11:27 114 17 98 Mechanical Ventilator 30 11/13/16 11:26 114 16 40 11/13/16 09:22 103 18 99 Mechanical Ventilator 30 11/13/16 09:07 98 16 99 Mechanical Ventilator 30 11/13/16 09:04 93 16 40 11/13/16 08:08 99.7 106 15 87/42 100 Mechanical Ventilator 40 11/13/16 08:00 40 11/13/16 07:33 98 18 99 Mechanical Ventilator 40 11/13/16 07:31 104 11/13/16 07:22 115 16 100 Mechanical Ventilator 40 11/13/16 07:21 115 16 40 11/13/16 04:33 84 16 40 11/13/16 04:00 97.9 112 16 93/62 100 Nasal Cannula 2.0 11/13/16 04:00 40 11/13/16 03:54 112 11/13/16 03:25 113 17 40 11/13/16 01:30 118 20 40 11/13/16 00:00 98.1 101 16 110/71 100 Nasal Cannula 2.0 11/13/16 00:00 40 11/12/16 23:57 101 11/12/16 23:03 112 16 40 11/12/16 21:45 117 16 99 Mechanical Ventilator 40 11/12/16 21:30 112 16 98 Mechanical Ventilator 40 11/12/16 20:44 89 17 40 11/12/16 20:00 40 11/12/16 20:00 97.9 98 16 110/77 98 Nasal Cannula 2.0 11/12/16 20:00 113 11/12/16 19:30 112 17 40 11/12/16 16:53 108 16 40 11/12/16 16:00 40 11/12/16 16:00 97.7 92 16 111/76 98 Nasal Cannula 2.0 11/12/16 15:39 104 11/12/16 15:01 133 16 40 11/12/16 15:00 133 16 100 Mechanical Ventilator 40 11/12/16 13:29 98 16 40 Intake and Output 11/12/16 11/13/16 19:00 07:00 Intake Total 2155 ml 1898.5 ml Output Total 450 ml Balance 1705 ml 1898.5 ml Free Water 450 ml 150 ml IV Total 1120 ml 1337.5 ml Tube Feeding 585 ml 130 ml Blood Product 281 ml Output Urine Total 450 ml # Bowel Movements 1 2 Objective Status: awake HEENT: atraumatic, normocephalic Lungs: clear, decreased breath sounds Heart: HR/BP stable Abdomen: soft, non-tender Extremities: no C/C/E, edema Microbiology Date/Time Source Procedure Growth Status 11/10/16 19:42 Blood Blood Culture - Preliminary NO GROWTH AFTER 48 HOURS Resulted 11/10/16 19:32 Blood Blood Culture - Preliminary NO GROWTH AFTER 48 HOURS Resulted 11/11/16 04:00 Sputum Induced Gram Stain - Final Resulted 11/11/16 04:00 Sputum Culture - Preliminary Gram Negative Bacillus 1 Resulted 11/11/16 03:45 Urine,Clean Catch Urine Culture - Preliminary Yeast Species Resulted Laboratory Tests 11/12/16 14:50: White Blood Count 44.1*H, Red Blood Count 3.08L, Hemoglobin 7.9L, Hematocrit 26.4L, Mean Corpuscular Volume 86, Mean Corpuscular Hemoglobin 25.5L, Mean Corpuscular Hemoglobin Concent 29.7L, Red Cell Distribution Width 14.7, Platelet Count 412, Mean Platelet Volume 6.9, Neutrophils (%) (Auto) , Lymphocytes (%) (Auto) , Monocytes (%) (Auto) , Eosinophils (%) (Auto) , Basophils (%) (Auto) , Differential Total Cells Counted 100, Neutrophils % ( Manual) 87H, Lymphocytes % (Manual) 1L, Monocytes % (Manual) 2, Eosinophils % ( Manual) 0, Basophils % (Manual) 0, Band Neutrophils 10H, Platelet Estimate Adequate, Platelet Morphology Normal, Polychromasia 1+, Hypochromasia 2+, Anisocytosis 1+ 11/13/16 05:45: White Blood Count 31.8*H, Red Blood Count 3.16L, Hemoglobin 8.4L, Hematocrit 27.0L, Mean Corpuscular Volume 86, Mean Corpuscular Hemoglobin 26.7L, Mean Corpuscular Hemoglobin Concent 31.2L, Red Cell Distribution Width 14.7, Platelet Count 360, Mean Platelet Volume 6.6, Neutrophils (%) (Auto) , Lymphocytes (%) (Auto) , Monocytes (%) (Auto) , Eosinophils (%) (Auto) , Basophils (%) (Auto) , Differential Total Cells Counted 100, Neutrophils % ( Manual) 92H, Lymphocytes % (Manual) 2L, Monocytes % (Manual) 5, Eosinophils % ( Manual) 0, Basophils % (Manual) 0, Band Neutrophils 1, Platelet Estimate Adequate, Platelet Morphology Normal, Hypochromasia 2+, Anisocytosis 1+, Sodium Level 141, Potassium Level 4.0, Chloride Level 101, Carbon Dioxide Level 31H, Anion Gap 9, Blood Urea Nitrogen 32H, Creatinine 0.7, Estimat Glomerular Filtration Rate > 60, Glucose Level 120H, Calcium Level 8.3L Current Medications Medications (Trade) Dose Ordered Sig/Shraddha Route PRN Reason Start Time Stop Time Status Last Admin Dose Admin Acetaminophen (Tylenol) 650 mg Q4H PRN ORAL fever>100.5 11/02/16 17:00 12/02/16 16:59 Acetaminophen 650 mg 650 mg Q4H PRN GT headache 11/03/16 08:00 12/03/16 07:59 11/12/16 13:31 Colistimethate Sodium 150 mg 150 mg Q12HR@10,22 INH 11/09/16 22:00 11/16/16 21:59 11/13/16 09:06 Dextrose (Dextrose 50%) STAT PRN IV Hypoglycemia 11/02/16 17:00 12/02/16 16:59 Insulin Aspart (NovoLOG) start when feeding started Q6HR SUBQ 11/02/16 18:00 12/02/16 17:59 11/13/16 12:06 Lansoprazole (Prevacid) 30 mg DAILY GT 10/31/16 09:00 11/30/16 08:59 11/13/16 08:13 Levalbuterol HCl (Xopenex) 1.25 mg Q4H PRN HHN Shortness of Breath 11/12/16 13:30 11/17/16 13:29 11/13/16 11:25 Levofloxacin (Levaquin 750mg/ D5W) 150 ml @ 100 mls/hr Q24H IVPB 11/11/16 14:30 11/18/16 14:29 11/12/16 14:35 Linezolid (Zyvox) 300 ml @ 300 mls/hr Q12HR IVPB 11/09/16 21:00 11/16/16 20:59 11/13/16 08:13 Meropenem 1 gm/ Sodium Chloride 110 ml @ 220 mls/hr Q8HR IVPB 11/09/16 22:00 11/17/16 21:59 11/13/16 05:21 Metoclopramide HCl (Reglan) 10 mg THREE TIMES A DAY GT 10/24/16 19:00 11/23/16 18:59 11/13/16 12:06 Micafungin Sodium 100 mg/Sodium Chloride 110 ml @ 110 mls/hr Q24H IVPB 11/10/16 20:00 11/17/16 19:59 11/12/16 21:44 Ondansetron HCl (Zofran) 4 mg Q6H PRN IVP Nausea & Vomiting 11/02/16 17:00 12/02/16 16:59 Polyethylene Glycol (Miralax) 17 gm DAILYPRN PRN GT Constipation 10/25/16 01:00 11/24/16 00:59 11/03/16 00:00 Sodium Chloride 500 ml @ 999 mls/hr PRN PRN IVPB For hypotension 11/09/16 17:15 12/09/16 17:14 11/10/16 22:00 Sodium Chloride 1,000 ml @ 75 mls/hr [id number] IV 11/11/16 01:00 12/11/16 00:59 11/13/16 05:29 REN WRIGHT November 13, 2016 12:41
--- NOTE | 2016-11-13 14:49 | Cardiac Electrophysiology PN ---
Assessment/Plan Assessment/Plan 1. Sinus tachycardia due to sepsis.Better on intravenous antibiotics 2. Hypotension. Better with IV fluid and antibiotics. 3. Severe pulmonary hypertension of 66 due to severe chronic obstructive pulmonary disease. 4. Ventilator-dependant respiratory failure, status post tracheostomy. 5. Dysphagia, status post percutaneous endoscopic gastrostomy placement. 6. Sepsis, on broad-spectrum intravenous antibiotics. 7. Chronic encephalopathy. 8. Polyps seen on CT in unprepared colon, Declined GI work up per Dr Yadira CHAVEZ RN Subjective Subjective On Vent via tracheostomy with PEG.No arrhythmias overnight. Objective Last 24 Hour Vital Signs Date Time Temp Pulse Resp B/P Pulse Ox O2 Delivery O2 Flow Rate FiO2 11/13/16 12:40 115 18 40 11/13/16 12:00 40 11/13/16 12:00 108 11/13/16 12:00 97.2 111 15 92/60 100 Mechanical Ventilator 40 11/13/16 11:27 114 17 98 Mechanical Ventilator 30 11/13/16 11:26 114 16 40 11/13/16 09:22 103 18 99 Mechanical Ventilator 30 11/13/16 09:07 98 16 99 Mechanical Ventilator 30 11/13/16 09:04 93 16 40 11/13/16 08:08 99.7 106 15 87/42 100 Mechanical Ventilator 40 11/13/16 08:00 40 11/13/16 07:33 98 18 99 Mechanical Ventilator 40 11/13/16 07:31 104 11/13/16 07:22 115 16 100 Mechanical Ventilator 40 11/13/16 07:21 115 16 40 11/13/16 04:33 84 16 40 11/13/16 04:00 97.9 112 16 93/62 100 Nasal Cannula 2.0 11/13/16 04:00 40 11/13/16 03:54 112 11/13/16 03:25 113 17 40 11/13/16 01:30 118 20 40 11/13/16 00:00 98.1 101 16 110/71 100 Nasal Cannula 2.0 11/13/16 00:00 40 11/12/16 23:57 101 11/12/16 23:03 112 16 40 11/12/16 21:45 117 16 99 Mechanical Ventilator 40 11/12/16 21:30 112 16 98 Mechanical Ventilator 40 11/12/16 20:44 89 17 40 11/12/16 20:00 40 11/12/16 20:00 97.9 98 16 110/77 98 Nasal Cannula 2.0 11/12/16 20:00 113 11/12/16 19:30 112 17 40 11/12/16 16:53 108 16 40 11/12/16 16:00 40 11/12/16 16:00 97.7 92 16 111/76 98 Nasal Cannula 2.0 11/12/16 15:39 104 11/12/16 15:01 133 16 40 11/12/16 15:00 133 16 100 Mechanical Ventilator 40 Intake and Output 11/12/16 11/13/16 19:00 07:00 Intake Total 2155 ml 1898.5 ml Output Total 450 ml Balance 1705 ml 1898.5 ml Free Water 450 ml 150 ml IV Total 1120 ml 1337.5 ml Tube Feeding 585 ml 130 ml Blood Product 281 ml Output Urine Total 450 ml # Bowel Movements 1 2 Laboratory Tests Test 11/12/16 14:50 11/13/16 05:45 White Blood Count 44.1 K/UL (4.8-10.8) *H 31.8 K/UL (4.8-10.8) *H Red Blood Count 3.08 M/UL (4.70-6.10) L 3.16 M/UL (4.70-6.10) L Hemoglobin 7.9 G/DL (14.2-18.0) L 8.4 G/DL (14.2-18.0) L Hematocrit 26.4 % (42.0-52.0) L 27.0 % (42.0-52.0) L Mean Corpuscular Volume 86 FL (80-99) 86 FL (80-99) Mean Corpuscular Hemoglobin 25.5 PG (27.0-31.0) L 26.7 PG (27.0-31.0) L Mean Corpuscular Hemoglobin Concent 29.7 G/DL (32.0-36.0) L 31.2 G/DL (32.0-36.0) L Red Cell Distribution Width 14.7 % (11.6-14.8) 14.7 % (11.6-14.8) Platelet Count 412 K/UL (150-450) 360 K/UL (150-450) Mean Platelet Volume 6.9 FL (6.5-10.1) 6.6 FL (6.5-10.1) Neutrophils (%) (Auto) % (45.0-75.0) % (45.0-75.0) Lymphocytes (%) (Auto) % (20.0-45.0) % (20.0-45.0) Monocytes (%) (Auto) % (1.0-10.0) % (1.0-10.0) Eosinophils (%) (Auto) % (0.0-3.0) % (0.0-3.0) Basophils (%) (Auto) % (0.0-2.0) % (0.0-2.0) Differential Total Cells Counted 100 100 Neutrophils % (Manual) 87 % (45-75) H 92 % (45-75) H Lymphocytes % (Manual) 1 % (20-45) L 2 % (20-45) L Monocytes % (Manual) 2 % (1-10) 5 % (1-10) Eosinophils % (Manual) 0 % (0-3) 0 % (0-3) Basophils % (Manual) 0 % (0-2) 0 % (0-2) Band Neutrophils 10 % (0-8) H 1 % (0-8) Platelet Estimate Adequate Adequate Platelet Morphology Normal Normal Polychromasia 1+ Hypochromasia 2+ 2+ Anisocytosis 1+ 1+ Sodium Level 141 mEQ/L (135-145) Potassium Level 4.0 mEQ/L (3.4-4.9) Chloride Level 101 mEQ/L (98-107) Carbon Dioxide Level 31 mEQ/L (20-30) H Anion Gap 9 (5-15) Blood Urea Nitrogen 32 mg/dL (7-23) H Creatinine 0.7 mg/dL (0.7-1.2) Estimat Glomerular Filtration Rate > 60 mL/min (>60) Glucose Level 120 mg/dL (74-106) H Calcium Level 8.3 mg/dL (8.6-10.2) L Microbiology Date/Time Source Procedure Growth Status 11/10/16 19:42 Blood Blood Culture - Preliminary NO GROWTH AFTER 48 HOURS Resulted 11/10/16 19:32 Blood Blood Culture - Preliminary NO GROWTH AFTER 48 HOURS Resulted 11/11/16 04:00 Sputum Induced Gram Stain - Final Resulted 11/11/16 04:00 Sputum Culture - Preliminary Gram Negative Bacillus 1 Resulted 11/11/16 03:45 Urine,Clean Catch Urine Culture - Preliminary Yeast Species Resulted Objective HEAD AND NECK: No jugular venous distention, tracheostomy intact. LUNGS: Coarse rhonchi bilaterally. CARDIOVASCULAR: Tachycardic S1 and S2 with no gallop or murmur. ABDOMEN: Soft. Status post G-tube. EXTREMITIES: No pitting edema. OSWALD HILLS November 13, 2016 14:49
[2016-11-13] MEDS ORDERED: NS 275ml ONE (15:22)
[2016-11-13] MEDS ORDERED: Tubing IV Blood Pump IV ONE (15:22)
[2016-11-13 16:00] VITALS: BP 120/73
--- NOTE | 2016-11-13 16:54 | Internal Med Progress Note ---
Subjective Physician Name Steve Rader Attending Physician Steve Rader MD Current Medications Medications (Trade) Dose Ordered Sig/Shraddha Route PRN Reason Start Time Stop Time Status Last Admin Dose Admin Acetaminophen (Tylenol) 650 mg Q4H PRN ORAL fever>100.5 11/02/16 17:00 12/02/16 16:59 Acetaminophen 650 mg 650 mg Q4H PRN GT headache 11/03/16 08:00 12/03/16 07:59 11/12/16 13:31 Colistimethate Sodium 150 mg 150 mg Q12HR@10,22 INH 11/09/16 22:00 11/16/16 21:59 11/13/16 09:06 Dextrose (Dextrose 50%) STAT PRN IV Hypoglycemia 11/02/16 17:00 12/02/16 16:59 Insulin Aspart (NovoLOG) start when feeding started Q6HR SUBQ 11/02/16 18:00 12/02/16 17:59 11/13/16 12:06 Lansoprazole (Prevacid) 30 mg DAILY GT 10/31/16 09:00 11/30/16 08:59 11/13/16 08:13 Levalbuterol HCl (Xopenex) 1.25 mg Q4H PRN HHN Shortness of Breath 11/12/16 13:30 11/17/16 13:29 11/13/16 15:44 Levofloxacin (Levaquin 750mg/ D5W) 150 ml @ 100 mls/hr Q24H IVPB 11/11/16 14:30 11/18/16 14:29 11/13/16 14:37 Linezolid (Zyvox) 300 ml @ 300 mls/hr Q12HR IVPB 11/09/16 21:00 11/16/16 20:59 11/13/16 08:13 Meropenem 1 gm/ Sodium Chloride 110 ml @ 220 mls/hr Q8HR IVPB 11/09/16 22:00 11/17/16 21:59 11/13/16 13:46 Metoclopramide HCl (Reglan) 10 mg THREE TIMES A DAY GT 10/24/16 19:00 11/23/16 18:59 11/13/16 12:06 Micafungin Sodium 100 mg/Sodium Chloride 110 ml @ 110 mls/hr Q24H IVPB 11/10/16 20:00 11/17/16 19:59 11/12/16 21:44 Ondansetron HCl (Zofran) 4 mg Q6H PRN IVP Nausea & Vomiting 11/02/16 17:00 12/02/16 16:59 Polyethylene Glycol (Miralax) 17 gm DAILYPRN PRN GT Constipation 10/25/16 01:00 11/24/16 00:59 11/03/16 00:00 Sodium Chloride 500 ml @ 999 mls/hr PRN PRN IVPB For hypotension 11/09/16 17:15 12/09/16 17:14 11/10/16 22:00 Sodium Chloride 1,000 ml @ 75 mls/hr [id number] IV 11/11/16 01:00 12/11/16 00:59 11/13/16 05:29 Allergies: Coded Allergies: No Known Allergies (Unverified , 06/17/16) Subjective awake, alert, responsive on Vent, C/O less abdominal pain, WBC decreasing 31.8 Objective Last Vital Signs Date Time Temp Pulse Resp B/P Pulse Ox O2 Delivery O2 Flow Rate FiO2 11/13/16 16:00 95.6 118 18 120/73 98 Mechanical Ventilator 30 113 11/13/16 04:00 2.0 Laboratory Tests Test 11/13/16 05:45 White Blood Count 31.8 K/UL (4.8-10.8) *H Red Blood Count 3.16 M/UL (4.70-6.10) L Hemoglobin 8.4 G/DL (14.2-18.0) L Hematocrit 27.0 % (42.0-52.0) L Mean Corpuscular Volume 86 FL (80-99) Mean Corpuscular Hemoglobin 26.7 PG (27.0-31.0) L Mean Corpuscular Hemoglobin Concent 31.2 G/DL (32.0-36.0) L Red Cell Distribution Width 14.7 % (11.6-14.8) Platelet Count 360 K/UL (150-450) Mean Platelet Volume 6.6 FL (6.5-10.1) Neutrophils (%) (Auto) % (45.0-75.0) Lymphocytes (%) (Auto) % (20.0-45.0) Monocytes (%) (Auto) % (1.0-10.0) Eosinophils (%) (Auto) % (0.0-3.0) Basophils (%) (Auto) % (0.0-2.0) Differential Total Cells Counted 100 Neutrophils % (Manual) 92 % (45-75) H Lymphocytes % (Manual) 2 % (20-45) L Monocytes % (Manual) 5 % (1-10) Eosinophils % (Manual) 0 % (0-3) Basophils % (Manual) 0 % (0-2) Band Neutrophils 1 % (0-8) Platelet Estimate Adequate Platelet Morphology Normal Hypochromasia 2+ Anisocytosis 1+ Sodium Level 141 mEQ/L (135-145) Potassium Level 4.0 mEQ/L (3.4-4.9) Chloride Level 101 mEQ/L (98-107) Carbon Dioxide Level 31 mEQ/L (20-30) H Anion Gap 9 (5-15) Blood Urea Nitrogen 32 mg/dL (7-23) H Creatinine 0.7 mg/dL (0.7-1.2) Estimat Glomerular Filtration Rate > 60 mL/min (>60) Glucose Level 120 mg/dL (74-106) H Calcium Level 8.3 mg/dL (8.6-10.2) L Microbiology Date/Time Source Procedure Growth Status 11/10/16 19:42 Blood Blood Culture - Preliminary NO GROWTH AFTER 48 HOURS Resulted 11/10/16 19:32 Blood Blood Culture - Preliminary NO GROWTH AFTER 48 HOURS Resulted 11/11/16 04:00 Sputum Induced Gram Stain - Final Resulted 11/11/16 04:00 Sputum Culture - Preliminary Gram Negative Bacillus 1 Resulted 11/11/16 03:45 Urine,Clean Catch Urine Culture - Preliminary Yeast Species Resulted Intake and Output 11/12/16 11/13/16 19:00 07:00 Intake Total 2155 ml 1898.5 ml Output Total 450 ml Balance 1705 ml 1898.5 ml Free Water 450 ml 150 ml IV Total 1120 ml 1337.5 ml Tube Feeding 585 ml 130 ml Blood Product 281 ml Output Urine Total 450 ml # Bowel Movements 1 2 Objective General: No acute distress, awake and alert HEENT: NCAT, sclera anicteric, PERRL, EOMI. Neck: Supple, Trach intact. Lungs: clear to auscultation bilaterally, no Wheeze, decrease air on bases. Heart: Regular rate and rhythm, normal S1/S2, no murmurs Abdomen: soft, generalized tenderness, mild distended. Normoactive bowel sounds.PEG site is clean. : Johnson cath Extremities: No Cyanosis , clubbing or edema. Neuro: A&O x 3, Able to move all extremities. Muscle atrophy. Skin: warm, no rashes or lesions Assessment/Plan Assessment/Plan (1) Lung nodule (2) DVT (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 (3) Acute respiratory failure Assessment & Plan: S/P tracheostomy 10/03/16. Failed weaning trial. Cont vent per pulmonary (4) COPD exacerbation Assessment & Plan: Continue DuoNeb. Continue vent per pulmonary. (5) Pneumonia (6) Leukocytosis Assessment & Plan: cont Merrem , Colistin INH , Zyvox, Mycamine, Levaquin ( 5/6 SP Vanco d# 6 / 10 and oral Vanco d# 5 ) (7) Dysphagia Assessment & Plan: See GI consult- S/P PEG 10/04/16. (8) colonic mass Plan: F/U with ID recommendations Monitor Labs and culture Sputum culture: GNB . Steve Rader MD November 13, 2016 16:54
[2016-11-13] MEDS: Micafungin 100 MG in NS 110 ML IVPB SCH (19:54)
[2016-11-13 20:00] VITALS: BP 101/74
--- NOTE | 2016-11-13 21:35 | General Progress Note ---
Assessment/Plan Assessment/Plan Assessment - Colon polyps/mass seen on CT - patient has declined GI w/u - COPD - respiratory failure - s/p trach and PEG - dysphagia - Leukocytosis - h/o OB (+) - Anemia - gradual decline - Poor PX Recommendations - transfuse PRN - elevate HOB - abx - GT care / TF - follow labs - level of care discussion Subjective Allergies: Coded Allergies: No Known Allergies (Unverified , 06/17/16) Subjective weak arousable resting tolerating cycled TF Objective Last 24 Hour Vital Signs Date Time Temp Pulse Resp B/P Pulse Ox O2 Delivery O2 Flow Rate FiO2 11/13/16 21:24 119 16 99 Mechanical Ventilator 40 11/13/16 21:24 120 18 40 11/13/16 20:00 99.5 131 16 101/74 96 Mechanical Ventilator 40 11/13/16 19:58 117 16 100 Mechanical Ventilator 40 11/13/16 19:00 115 18 40 11/13/16 16:43 118 18 40 11/13/16 16:00 95.6 118 18 120/73 98 Mechanical Ventilator 30 113 11/13/16 16:00 40 11/13/16 15:50 120 18 99 Mechanical Ventilator 30 11/13/16 15:40 118 17 98 Mechanical Ventilator 30 11/13/16 15:38 118 18 40 11/13/16 15:22 117 11/13/16 12:40 115 18 40 11/13/16 12:00 40 11/13/16 12:00 108 11/13/16 12:00 97.2 111 15 92/60 100 Mechanical Ventilator 40 11/13/16 11:27 114 17 98 Mechanical Ventilator 30 11/13/16 11:26 114 16 40 11/13/16 09:22 103 18 99 Mechanical Ventilator 30 11/13/16 09:07 98 16 99 Mechanical Ventilator 30 11/13/16 09:04 93 16 40 11/13/16 08:08 99.7 106 15 87/42 100 Mechanical Ventilator 40 11/13/16 08:00 40 11/13/16 07:33 98 18 99 Mechanical Ventilator 40 11/13/16 07:31 104 11/13/16 07:22 115 16 100 Mechanical Ventilator 40 11/13/16 07:21 115 16 40 11/13/16 04:33 84 16 40 11/13/16 04:00 97.9 112 16 93/62 100 Nasal Cannula 2.0 11/13/16 04:00 40 11/13/16 03:54 112 11/13/16 03:25 113 17 40 11/13/16 01:30 118 20 40 11/13/16 00:00 98.1 101 16 110/71 100 Nasal Cannula 2.0 11/13/16 00:00 40 11/12/16 23:57 101 11/12/16 23:03 112 16 40 11/12/16 21:45 117 16 99 Mechanical Ventilator 40 Intake and Output 11/12/16 11/13/16 19:00 07:00 Intake Total 2155 ml 1898.5 ml Output Total 450 ml Balance 1705 ml 1898.5 ml Free Water 450 ml 150 ml IV Total 1120 ml 1337.5 ml Tube Feeding 585 ml 130 ml Blood Product 281 ml Output Urine Total 450 ml # Bowel Movements 1 2 Laboratory Tests 11/13/16 05:45: White Blood Count 31.8*H, Red Blood Count 3.16L, Hemoglobin 8.4L, Hematocrit 27.0L, Mean Corpuscular Volume 86, Mean Corpuscular Hemoglobin 26.7L, Mean Corpuscular Hemoglobin Concent 31.2L, Red Cell Distribution Width 14.7, Platelet Count 360, Mean Platelet Volume 6.6, Neutrophils (%) (Auto) , Lymphocytes (%) (Auto) , Monocytes (%) (Auto) , Eosinophils (%) (Auto) , Basophils (%) (Auto) , Differential Total Cells Counted 100, Neutrophils % ( Manual) 92H, Lymphocytes % (Manual) 2L, Monocytes % (Manual) 5, Eosinophils % ( Manual) 0, Basophils % (Manual) 0, Band Neutrophils 1, Platelet Estimate Adequate, Platelet Morphology Normal, Hypochromasia 2+, Anisocytosis 1+, Sodium Level 141, Potassium Level 4.0, Chloride Level 101, Carbon Dioxide Level 31H, Anion Gap 9, Blood Urea Nitrogen 32H, Creatinine 0.7, Estimat Glomerular Filtration Rate > 60, Glucose Level 120H, Calcium Level 8.3L Height (Feet): 6 Height (Inches): 2.00 Weight (Pounds): 126 Objective Elderly AA man NCAT (+) trach Coarse BS RRR soft NT abdomen, (+) GT poorly responsive ROSEMARY BURROUGHS November 13, 2016 21:35
--- NOTE | 2016-11-13 21:57 | Infectious Diseases Prog Note ---
Assessment/Plan Assessment/Plan ASSESSMENT: 66 y/o male with: // VAP SCx: MDR ACB and PSA CT : Since previous exam of 2 days earlier, marked worsening of right lower lobe dense consolidation, consistent with rapidly progressing pneumonia. // probable UTI : UCx yeast and VRE // COPD exacerbation - delayed SCx 4+ PSA SP Rx - CXR 09/27: Lungs are hyperinflated. No new infiltrates - negative: influenza // Leukocytosis, improved , US : no evidence of Pl effusion or Empyema // Hypotension SP // Abd pain ?etio CDiff neg , LAC : Nl - Ct of Abd : 4.4 x 3 x 4.4 cm filling defect within the proximal ascending colon.Appearance is that of a polyp on a stalk. Size of this lesion raises concern for malignancy. // Ro C Diff Neg vs Isch colitis // Febrile low grade , SP // HIV and Hep B/C : neg // colon mass ro cancer , GI is following CT: Large cecal mass and other polypoid colonic masses, detailed previously , again demonstrated // - PEG 10/04 // Acute VDRF - intubated 09/20, 10/03 SP trach // Severe pulmonary HTN / grade I diastolic dysfunction / mod TR // Pulmonary nodules // Chronic RLE DVT // Tobacco abuse // [facility] resident // Negative MRSA, VRE screens // NKDA // Full Code PLAN: - cont Merrem , Colistin INH , Zyvox and Mycamine d# 5 and Levaquin d# 3 ( 11/09 SP Vanco d# 6 / 10 and oral Vanco d# 5 ) ( 10/17 SP Ceftazidime d# 14 ) ( 10/13 SP Jairon nebs d# 14 ) ( 10/11 SP Flagyl d# 10 ) ( 10/04 SP oral Vanco d# 3 ) ( 09/24 SP amikacin, invanz d# 5 / 5 ) ( 09/21 SP IV vancomycin d# 2 ) - taper steroids per pulm - monitor CBC, temperatures - monitor BMP - monitor CXR - vent support, wean as tolerated - CT of chest Subjective Allergies: Coded Allergies: No Known Allergies (Unverified , 06/17/16) Subjective leukocytes improved Objective Vital Signs Last 24 Hour Vital Signs Date Time Temp Pulse Resp B/P Pulse Ox O2 Delivery O2 Flow Rate FiO2 11/13/16 21:24 119 16 99 Mechanical Ventilator 40 11/13/16 21:24 120 18 40 11/13/16 20:00 99.5 131 16 101/74 96 Mechanical Ventilator 40 11/13/16 19:58 117 16 100 Mechanical Ventilator 40 11/13/16 19:00 115 18 40 11/13/16 16:43 118 18 40 11/13/16 16:00 95.6 118 18 120/73 98 Mechanical Ventilator 30 113 11/13/16 16:00 40 11/13/16 15:50 120 18 99 Mechanical Ventilator 30 11/13/16 15:40 118 17 98 Mechanical Ventilator 30 11/13/16 15:38 118 18 40 11/13/16 15:22 117 11/13/16 12:40 115 18 40 11/13/16 12:00 40 11/13/16 12:00 108 11/13/16 12:00 97.2 111 15 92/60 100 Mechanical Ventilator 40 11/13/16 11:27 114 17 98 Mechanical Ventilator 30 11/13/16 11:26 114 16 40 11/13/16 09:22 103 18 99 Mechanical Ventilator 30 11/13/16 09:07 98 16 99 Mechanical Ventilator 30 11/13/16 09:04 93 16 40 11/13/16 08:08 99.7 106 15 87/42 100 Mechanical Ventilator 40 11/13/16 08:00 40 11/13/16 07:33 98 18 99 Mechanical Ventilator 40 11/13/16 07:31 104 11/13/16 07:22 115 16 100 Mechanical Ventilator 40 11/13/16 07:21 115 16 40 11/13/16 04:33 84 16 40 11/13/16 04:00 97.9 112 16 93/62 100 Nasal Cannula 2.0 11/13/16 04:00 40 11/13/16 03:54 112 11/13/16 03:25 113 17 40 11/13/16 01:30 118 20 40 11/13/16 00:00 98.1 101 16 110/71 100 Nasal Cannula 2.0 11/13/16 00:00 40 11/12/16 23:57 101 11/12/16 23:03 112 16 40 Height (Feet): 6 Height (Inches): 2.00 Weight (Pounds): 126 HEENT: anicteric Respiratory/Chest: no respiratory distress Cardiovascular: regular rhythm Abdomen: no organomegaly Microbiology Date/Time Source Procedure Growth Status 11/11/16 04:00 Sputum Induced Gram Stain - Final Resulted 11/11/16 04:00 Sputum Culture - Preliminary Gram Negative Bacillus 1 Resulted 11/11/16 03:45 Urine,Clean Catch Urine Culture - Preliminary Yeast Species Resulted Laboratory Tests Test 11/13/16 05:45 White Blood Count 31.8 K/UL (4.8-10.8) *H Red Blood Count 3.16 M/UL (4.70-6.10) L Hemoglobin 8.4 G/DL (14.2-18.0) L Hematocrit 27.0 % (42.0-52.0) L Mean Corpuscular Volume 86 FL (80-99) Mean Corpuscular Hemoglobin 26.7 PG (27.0-31.0) L Mean Corpuscular Hemoglobin Concent 31.2 G/DL (32.0-36.0) L Red Cell Distribution Width 14.7 % (11.6-14.8) Platelet Count 360 K/UL (150-450) Mean Platelet Volume 6.6 FL (6.5-10.1) Neutrophils (%) (Auto) % (45.0-75.0) Lymphocytes (%) (Auto) % (20.0-45.0) Monocytes (%) (Auto) % (1.0-10.0) Eosinophils (%) (Auto) % (0.0-3.0) Basophils (%) (Auto) % (0.0-2.0) Differential Total Cells Counted 100 Neutrophils % (Manual) 92 % (45-75) H Lymphocytes % (Manual) 2 % (20-45) L Monocytes % (Manual) 5 % (1-10) Eosinophils % (Manual) 0 % (0-3) Basophils % (Manual) 0 % (0-2) Band Neutrophils 1 % (0-8) Platelet Estimate Adequate Platelet Morphology Normal Hypochromasia 2+ Anisocytosis 1+ Sodium Level 141 mEQ/L (135-145) Potassium Level 4.0 mEQ/L (3.4-4.9) Chloride Level 101 mEQ/L (98-107) Carbon Dioxide Level 31 mEQ/L (20-30) H Anion Gap 9 (5-15) Blood Urea Nitrogen 32 mg/dL (7-23) H Creatinine 0.7 mg/dL (0.7-1.2) Estimat Glomerular Filtration Rate > 60 mL/min (>60) Glucose Level 120 mg/dL (74-106) H Calcium Level 8.3 mg/dL (8.6-10.2) L Current Medications Medications (Trade) Dose Ordered Sig/Shraddha Route PRN Reason Start Time Stop Time Status Last Admin Dose Admin Acetaminophen (Tylenol) 650 mg Q4H PRN ORAL fever>100.5 11/02/16 17:00 12/02/16 16:59 Acetaminophen 650 mg 650 mg Q4H PRN GT headache 11/03/16 08:00 12/03/16 07:59 11/12/16 13:31 Colistimethate Sodium 150 mg 150 mg Q12HR@10,22 INH 11/09/16 22:00 11/16/16 21:59 11/13/16 19:50 Dextrose (Dextrose 50%) STAT PRN IV Hypoglycemia 11/02/16 17:00 12/02/16 16:59 Insulin Aspart (NovoLOG) start when feeding started Q6HR SUBQ 11/02/16 18:00 12/02/16 17:59 11/13/16 17:30 Lansoprazole (Prevacid) 30 mg DAILY GT 10/31/16 09:00 11/30/16 08:59 11/13/16 08:13 Levalbuterol HCl (Xopenex) 1.25 mg Q4H PRN HHN Shortness of Breath 11/12/16 13:30 11/17/16 13:29 11/13/16 15:44 Levofloxacin (Levaquin 750mg/ D5W) 150 ml @ 100 mls/hr Q24H IVPB 11/11/16 14:30 11/18/16 14:29 11/13/16 14:37 Linezolid (Zyvox) 300 ml @ 300 mls/hr Q12HR IVPB 11/09/16 21:00 11/16/16 20:59 11/13/16 20:59 Meropenem 1 gm/ Sodium Chloride 110 ml @ 220 mls/hr Q8HR IVPB 11/09/16 22:00 11/17/16 21:59 11/13/16 13:46 Metoclopramide HCl (Reglan) 10 mg THREE TIMES A DAY GT 10/24/16 19:00 11/23/16 18:59 11/13/16 17:27 Micafungin Sodium 100 mg/Sodium Chloride 110 ml @ 110 mls/hr Q24H IVPB 11/10/16 20:00 11/17/16 19:59 11/13/16 19:54 Ondansetron HCl (Zofran) 4 mg Q6H PRN IVP Nausea & Vomiting 11/02/16 17:00 12/02/16 16:59 Polyethylene Glycol (Miralax) 17 gm DAILYPRN PRN GT Constipation 10/25/16 01:00 11/24/16 00:59 11/03/16 00:00 Sodium Chloride 500 ml @ 999 mls/hr PRN PRN IVPB For hypotension 11/09/16 17:15 12/09/16 17:14 11/10/16 22:00 Sodium Chloride 1,000 ml @ 75 mls/hr [id number] IV 11/11/16 01:00 12/11/16 00:59 11/13/16 17:40 KIMBERLEE HINKLE M.D. November 13, 2016 21:57
[2016-11-14] VITALS: BP 105/77
[2016-11-14] MEDS: Levalbuterol Inh UD 1.25mg/0.5ml HHN PRN ×5 (00:21→23:06)
[2016-11-14 04:00] VITALS: BP 106/68
[2016-11-14] MEDS: NovoLOG Insulin Flexpen SUBQ SCH ×3 (05:29→17:37)
[2016-11-14] MEDS: Meropenem 1 GM in NS 110 ML IVPB SCH ×3 (05:37→23:38)
[2016-11-14 08:00] VITALS: BP 93/66
[2016-11-14] MEDS: Colistin for inhalation INH SCH ×2 (08:50→19:53)
[2016-11-14] MEDS ORDERED: Tubing IV Secondary IV ONE (09:28)
[2016-11-14] MEDS ORDERED: NS 275ml ONE (09:28)
[2016-11-14] MEDS: Acetaminophen 650mg/20.3ml GT PRN (11:15)
--- NOTE | 2016-11-14 11:15 | Pulmonology Progress Note ---
Assessment/Plan Problems: (1) Severe sepsis (2) Abdominal distention (3) Respiratory failure (4) COPD exacerbation (5) Emphysema of lung (6) Colonic mass Assessment/Plan cont Merrem , Colistin INH , Zyvox and Mycamine Levaquin ( 11/09 SP Vanco d# 6 / 10 and oral Vanco d# 5 ) wbc decreaseing continue current vent setting, titrate fio2 to sat of 92% not tolerating weaning Subjective ROS Limited/Unobtainable: No Interval Events: d/o lower abdominal pain Allergies: Coded Allergies: No Known Allergies (Unverified , 06/17/16) Objective Last 24 Hour Vital Signs Date Time Temp Pulse Resp B/P Pulse Ox O2 Delivery O2 Flow Rate FiO2 11/14/16 10:56 118 16 40 11/14/16 10:41 115 16 98 Mechanical Ventilator 40 11/14/16 09:40 114 16 99 Mechanical Ventilator 40 11/14/16 09:30 118 17 99 Mechanical Ventilator 40 11/14/16 08:48 116 16 40 11/14/16 08:00 97.8 108 18 93/66 97 Mechanical Ventilator 40 11/14/16 08:00 40 11/14/16 07:47 112 11/14/16 07:05 115 16 40 11/14/16 05:25 106 16 40 11/14/16 04:07 104 17 98 Mechanical Ventilator 40 11/14/16 04:00 40 11/14/16 04:00 97.9 107 18 106/68 99 Mechanical Ventilator 40 11/14/16 03:41 109 11/14/16 03:22 101 16 40 11/14/16 01:08 91 21 40 11/14/16 00:25 94 21 99 Mechanical Ventilator 30 11/14/16 00:11 91 20 98 Mechanical Ventilator 40 11/14/16 00:00 40 11/14/16 00:00 97.9 114 18 105/77 99 Mechanical Ventilator 40 11/13/16 23:43 114 11/13/16 23:24 117 18 40 11/13/16 21:24 119 16 99 Mechanical Ventilator 40 11/13/16 21:24 120 18 40 11/13/16 20:00 40 11/13/16 20:00 99.5 131 16 101/74 96 Mechanical Ventilator 40 11/13/16 19:58 117 16 100 Mechanical Ventilator 40 11/13/16 19:35 120 5/10/17 19:00 115 18 40 11/13/16 16:43 118 18 40 11/13/16 16:00 95.6 118 18 120/73 98 Mechanical Ventilator 30 113 11/13/16 16:00 40 11/13/16 15:50 120 18 99 Mechanical Ventilator 30 11/13/16 15:40 118 17 98 Mechanical Ventilator 30 11/13/16 15:38 118 18 40 11/13/16 15:22 117 11/13/16 12:40 115 18 40 11/13/16 12:00 40 11/13/16 12:00 108 11/13/16 12:00 97.2 111 15 92/60 100 Mechanical Ventilator 40 11/13/16 11:27 114 17 98 Mechanical Ventilator 30 11/13/16 11:26 114 16 40 Intake and Output 11/13/16 11/14/16 19:00 07:00 Intake Total 2475 ml 2110 ml Output Total 850 ml 500 ml Balance 1625 ml 1610 ml Free Water 300 ml 450 ml IV Total 1410 ml 1530 ml Tube Feeding 585 ml 130 ml Other 180 ml Output Urine Total 850 ml 500 ml # Bowel Movements 1 Objective Status: awake HEENT: atraumatic, normocephalic Lungs: clear, decreased breath sounds Heart: HR/BP stable Abdomen: soft, non-tender Extremities: no C/C/E, edema Current Medications Medications (Trade) Dose Ordered Sig/Shraddha Route PRN Reason Start Time Stop Time Status Last Admin Dose Admin Acetaminophen (Tylenol) 650 mg Q4H PRN ORAL fever>100.5 11/02/16 17:00 12/02/16 16:59 Acetaminophen 650 mg 650 mg Q4H PRN GT headache 11/03/16 08:00 12/03/16 07:59 11/12/16 13:31 Colistimethate Sodium 150 mg 150 mg Q12HR@10,22 INH 11/09/16 22:00 11/16/16 21:59 11/14/16 08:50 Dextrose (Dextrose 50%) STAT PRN IV Hypoglycemia 11/02/16 17:00 12/02/16 16:59 Insulin Aspart (NovoLOG) start when feeding started Q6HR SUBQ 11/02/16 18:00 12/02/16 17:59 11/13/16 23:46 Lansoprazole (Prevacid) 30 mg DAILY GT 10/31/16 09:00 11/30/16 08:59 11/14/16 08:15 Levalbuterol HCl (Xopenex) 1.25 mg Q4H PRN HHN Shortness of Breath 11/12/16 13:30 11/17/16 13:29 11/14/16 10:40 Levofloxacin (Levaquin 750mg/ D5W) 150 ml @ 100 mls/hr Q24H IVPB 11/11/16 14:30 11/18/16 14:29 11/13/16 14:37 Linezolid (Zyvox) 300 ml @ 300 mls/hr Q12HR IVPB 11/09/16 21:00 11/16/16 20:59 11/14/16 08:15 Meropenem 1 gm/ Sodium Chloride 110 ml @ 220 mls/hr Q8HR IVPB 11/09/16 22:00 11/17/16 21:59 11/14/16 05:37 Metoclopramide HCl (Reglan) 10 mg THREE TIMES A DAY GT 10/24/16 19:00 11/23/16 18:59 11/14/16 08:15 Micafungin Sodium 100 mg/Sodium Chloride 110 ml @ 110 mls/hr Q24H IVPB 11/10/16 20:00 11/17/16 19:59 11/13/16 19:54 Ondansetron HCl (Zofran) 4 mg Q6H PRN IVP Nausea & Vomiting 11/02/16 17:00 12/02/16 16:59 Polyethylene Glycol (Miralax) 17 gm DAILYPRN PRN GT Constipation 10/25/16 01:00 11/24/16 00:59 11/03/16 00:00 Sodium Chloride 500 ml @ 999 mls/hr PRN PRN IVPB For hypotension 11/09/16 17:15 12/09/16 17:14 11/10/16 22:00 Sodium Chloride 1,000 ml @ 75 mls/hr [id number] IV 11/11/16 01:00 12/11/16 00:59 11/14/16 07:23 REN WRIGHT November 14, 2016 11:15
[2016-11-14 12:00] VITALS: BP_SYST 72; BP_SYST 92; BP_DIAS 42
--- NOTE | 2016-11-14 13:58 | Cardiac Electrophysiology PN ---
Assessment/Plan Assessment/Plan 1. Sinus tachycardia due to sepsis.Better on intravenous antibiotics 2. Hypotension. Better with IV fluid and antibiotics. Off pressors. 3. Severe pulmonary hypertension of 66 due to severe chronic obstructive pulmonary disease. 4. Ventilator-dependant respiratory failure, status post tracheostomy. 5. Dysphagia, status post percutaneous endoscopic gastrostomy placement. 6. Sepsis due to MDR ACB and PSA , on broad-spectrum intravenous antibiotics and antifungal. 7. Chronic encephalopathy. 8. Polyps on CT in unprepared colon, GI work up per Dr Yadira CHAVEZ RN Subjective Subjective Nonverbal on Vent via tracheostomy with PEG.No arrhythmias overnight. Objective Last 24 Hour Vital Signs Date Time Temp Pulse Resp B/P Pulse Ox O2 Delivery O2 Flow Rate FiO2 11/14/16 12:00 97.4 108 18 72/42 100 Mechanical Ventilator 40 11/14/16 12:00 40 11/14/16 11:43 101 11/14/16 10:56 118 16 40 11/14/16 10:41 115 16 98 Mechanical Ventilator 40 11/14/16 09:40 114 16 99 Mechanical Ventilator 40 11/14/16 09:30 118 17 99 Mechanical Ventilator 40 11/14/16 08:48 116 16 40 11/14/16 08:00 97.8 108 18 93/66 97 Mechanical Ventilator 40 11/14/16 08:00 40 11/14/16 07:47 112 11/14/16 07:05 115 16 40 11/14/16 05:25 106 16 40 11/14/16 04:07 104 17 98 Mechanical Ventilator 40 11/14/16 04:00 40 11/14/16 04:00 97.9 107 18 106/68 99 Mechanical Ventilator 40 11/14/16 03:41 109 11/14/16 03:22 101 16 40 11/14/16 01:08 91 21 40 11/14/16 00:25 94 21 99 Mechanical Ventilator 30 11/14/16 00:11 91 20 98 Mechanical Ventilator 40 11/14/16 00:00 40 11/14/16 00:00 97.9 114 18 105/77 99 Mechanical Ventilator 40 11/13/16 23:43 114 11/13/16 23:24 117 18 40 11/13/16 21:24 119 16 99 Mechanical Ventilator 40 11/13/16 21:24 120 18 40 11/13/16 20:00 40 11/13/16 20:00 99.5 131 16 101/74 96 Mechanical Ventilator 40 11/13/16 19:58 117 16 100 Mechanical Ventilator 40 11/13/16 19:35 120 11/13/16 19:00 115 18 40 11/13/16 16:43 118 18 40 11/13/16 16:00 95.6 118 18 120/73 98 Mechanical Ventilator 30 113 11/13/16 16:00 40 11/13/16 15:50 120 18 99 Mechanical Ventilator 30 11/13/16 15:40 118 17 98 Mechanical Ventilator 30 11/13/16 15:38 118 18 40 11/13/16 15:22 117 Intake and Output 11/13/16 11/14/16 19:00 07:00 Intake Total 2475 ml 2110 ml Output Total 850 ml 500 ml Balance 1625 ml 1610 ml Free Water 300 ml 450 ml IV Total 1410 ml 1530 ml Tube Feeding 585 ml 130 ml Other 180 ml Output Urine Total 850 ml 500 ml # Bowel Movements 1 Objective HEAD AND NECK: No jugular venous distention, tracheostomy intact. LUNGS: Coarse rhonchi bilaterally. CARDIOVASCULAR: Tachycardic S1 and S2 with no gallop or murmur. ABDOMEN: Soft. Status post G-tube. EXTREMITIES: No pitting edema. OSWALD HILLS November 14, 2016 13:58
--- NOTE | 2016-11-14 15:51 | Diagnostic Imaging Report ---
Indication: Chest pain Technique: Continuous helical transaxial imaging of the chest was obtained from the thoracic inlet to the upper abdomen. No intravenous contrast was administered. Coronal 2-D reformats were also obtained. Total Dose length Product (DLP): [address] Dose Index Volume (CTDIvol): 16 mGy Comparison: none Findings: There is extensive airspace disease present within the lungs bilaterally with involvement of the left lung base and more extensive involvement of the right lower lobe and right upper lobe. Within the right upper lung field there is a an area devoid of lung parenchyma that appears to be a cavitary focus. The dimensions of a cavitary focus are difficult to measure especially as no IV contrast was given. The focus is probably 5-6 cm in size or larger and is suspicious for lung abscess. Little to no pleural effusion is present. The underlying lungs show hyperlucency especially in the upper lobes consistent with emphysema/COPD. Tracheostomy is in good position. Visualized part of the upper abdomen demonstrates a small amount of free fluid. Prominent Schmorl's nodes noted at L1 vertebra. Impression: Extensive pneumonia involving both lungs as described above. 5-6 cm cavitary focus suspicious for lung abscess in the right upper lobe. Trace ascites Tracheostomy in good position The CT scanner at [facility] is accredited by the [employer] and the scans are performed using dose optimization techniques as appropriate to a performed exam including Automatic Exposure control.
[2016-11-14 16:36] VITALS: BP 97/61
[2016-11-14] MEDS: Micafungin 100 MG in NS 110 ML IVPB SCH (20:36)
[2016-11-14 20:43] VITALS: BP 122/73
--- NOTE | 2016-11-14 22:36 | General Progress Note ---
Assessment/Plan Assessment/Plan Assessment - Colon polyps/mass seen on CT - patient has declined GI w/u - COPD - respiratory failure - s/p trach and PEG - dysphagia - Leukocytosis - h/o OB (+) - Anemia - gradual decline - Poor PX Recommendations - transfuse PRN - elevate HOB - abx - GT care / TF - follow labs - level of care discussion Subjective Allergies: Coded Allergies: No Known Allergies (Unverified , 06/17/16) Subjective weak arousable resting tolerating cycled TF Objective Last 24 Hour Vital Signs Date Time Temp Pulse Resp B/P Pulse Ox O2 Delivery O2 Flow Rate FiO2 11/14/16 20:58 102 20 40 11/14/16 20:48 40 11/14/16 20:43 98.6 116 22 122/73 96 Mechanical Ventilator 40 11/14/16 20:26 110 16 99 Mechanical Ventilator 40 11/14/16 20:16 108 22 100 Mechanical Ventilator 40 11/14/16 20:00 113 11/14/16 19:00 108 22 40 11/14/16 17:05 119 22 40 11/14/16 16:36 99.0 105 18 97/61 100 Mechanical Ventilator 40 11/14/16 16:00 108 11/14/16 16:00 40 11/14/16 15:08 114 23 40 11/14/16 13:12 104 17 40 11/14/16 12:00 97.4 108 18 92/42 100 Mechanical Ventilator 40 11/14/16 12:00 40 11/14/16 11:43 101 11/14/16 10:56 118 16 40 11/14/16 10:41 115 16 98 Mechanical Ventilator 40 11/14/16 09:40 114 16 99 Mechanical Ventilator 40 11/14/16 09:30 118 17 99 Mechanical Ventilator 40 11/14/16 08:48 116 16 40 11/14/16 08:00 97.8 108 18 93/66 97 Mechanical Ventilator 40 11/14/16 08:00 40 11/14/16 07:47 112 11/14/16 07:05 115 16 40 11/14/16 05:25 106 16 40 11/14/16 04:07 104 17 98 Mechanical Ventilator 40 11/14/16 04:00 40 11/14/16 04:00 97.9 107 18 106/68 99 Mechanical Ventilator 40 11/14/16 03:41 109 11/14/16 03:22 101 16 40 11/14/16 01:08 91 21 40 11/14/16 00:25 94 21 99 Mechanical Ventilator 30 11/14/16 00:11 91 20 98 Mechanical Ventilator 40 11/14/16 00:00 40 11/14/16 00:00 97.9 114 18 105/77 99 Mechanical Ventilator 40 11/13/16 23:43 114 11/13/16 23:24 117 18 40 Intake and Output 11/13/16 11/14/16 19:00 07:00 Intake Total 2475 ml 2110 ml Output Total 850 ml 500 ml Balance 1625 ml 1610 ml Free Water 300 ml 450 ml IV Total 1410 ml 1530 ml Tube Feeding 585 ml 130 ml Other 180 ml Output Urine Total 850 ml 500 ml # Bowel Movements 1 Height (Feet): 6 Height (Inches): 2.00 Weight (Pounds): 126 Objective Elderly AA man NCAT (+) trach Coarse BS RRR soft NT abdomen, (+) GT poorly responsive ROSEMARY BURROUGHS November 14, 2016 22:36
--- NOTE | 2016-11-14 23:02 | Internal Med Progress Note ---
Subjective Physician Name Steve Rader Attending Physician Steve Rader MD Current Medications Medications (Trade) Dose Ordered Sig/Shraddha Route PRN Reason Start Time Stop Time Status Last Admin Dose Admin Acetaminophen (Tylenol) 650 mg Q4H PRN ORAL fever>100.5 11/02/16 17:00 12/02/16 16:59 Acetaminophen 650 mg 650 mg Q4H PRN GT headache 11/03/16 08:00 12/03/16 07:59 11/14/16 11:15 Colistimethate Sodium 150 mg 150 mg Q12HR@10,22 INH 11/09/16 22:00 11/16/16 21:59 11/14/16 19:53 Dextrose (Dextrose 50%) STAT PRN IV Hypoglycemia 11/02/16 17:00 12/02/16 16:59 Insulin Aspart (NovoLOG) start when feeding started Q6HR SUBQ 11/02/16 18:00 12/02/16 17:59 11/14/16 11:15 Lansoprazole (Prevacid) 30 mg DAILY GT 10/31/16 09:00 11/30/16 08:59 11/14/16 08:15 Levalbuterol HCl (Xopenex) 1.25 mg Q4H PRN HHN Shortness of Breath 11/12/16 13:30 11/17/16 13:29 11/14/16 16:31 Levofloxacin (Levaquin 750mg/ D5W) 150 ml @ 100 mls/hr Q24H IVPB 11/11/16 14:30 11/18/16 14:29 11/14/16 15:06 Linezolid (Zyvox) 300 ml @ 300 mls/hr Q12HR IVPB 11/09/16 21:00 11/16/16 20:59 11/14/16 22:20 Meropenem 1 gm/ Sodium Chloride 110 ml @ 220 mls/hr Q8HR IVPB 11/09/16 22:00 11/17/16 21:59 11/14/16 13:10 Metoclopramide HCl (Reglan) 10 mg THREE TIMES A DAY GT 10/24/16 19:00 11/23/16 18:59 11/14/16 17:38 Micafungin Sodium 100 mg/Sodium Chloride 110 ml @ 110 mls/hr Q24H IVPB 11/10/16 20:00 11/17/16 19:59 11/14/16 20:36 Ondansetron HCl (Zofran) 4 mg Q6H PRN IVP Nausea & Vomiting 11/02/16 17:00 12/02/16 16:59 Polyethylene Glycol (Miralax) 17 gm DAILYPRN PRN GT Constipation 10/25/16 01:00 11/24/16 00:59 11/03/16 00:00 Sodium Chloride 500 ml @ 999 mls/hr PRN PRN IVPB For hypotension 11/09/16 17:15 12/09/16 17:14 11/10/16 22:00 Sodium Chloride 1,000 ml @ 75 mls/hr [id number] IV 11/11/16 01:00 12/11/16 00:59 11/14/16 07:23 Allergies: Coded Allergies: No Known Allergies (Unverified , 06/17/16) Subjective awake, alert, responsive on Vent, C/O less abdominal pain, Objective Last Vital Signs Date Time Temp Pulse Resp B/P Pulse Ox O2 Delivery O2 Flow Rate FiO2 11/14/16 22:33 106 20 40 11/14/16 20:43 98.6 122/73 96 Mechanical Ventilator 11/12/16 16:00 2.0 Intake and Output 11/13/16 11/14/16 19:00 07:00 Intake Total 2475 ml 2110 ml Output Total 850 ml 500 ml Balance 1625 ml 1610 ml Free Water 300 ml 450 ml IV Total 1410 ml 1530 ml Tube Feeding 585 ml 130 ml Other 180 ml Output Urine Total 850 ml 500 ml # Bowel Movements 1 Objective General: No acute distress, awake and alert HEENT: NCAT, sclera anicteric, PERRL, EOMI, poor dentition. Neck: Supple, Trach intact. Lungs: clear to auscultation bilaterally, no Wheeze, decrease air on bases. Heart: Regular rate and rhythm, normal S1/S2, no murmurs Abdomen: soft, less tenderness, mild distended. Normoactive bowel sounds.PEG site is clean. : Johnson cath Extremities: No Cyanosis , clubbing, Upper extremities edema. Neuro: A&O x 3, Able to move all extremities. Muscle atrophy. Skin: warm, no rashes Assessment/Plan Assessment/Plan (1) Lung nodule (2) DVT (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 (3) Acute respiratory failure Assessment & Plan: S/P tracheostomy 10/03/16. Failed weaning trial. Cont vent per pulmonary (4) COPD exacerbation Assessment & Plan: Continue DuoNeb. Continue vent per pulmonary. (5) Pneumonia (6) Leukocytosis Assessment & Plan: cont Merrem , Colistin INH , Zyvox, Mycamine, Levaquin ( 5/ SP Vanco d# 6 / 10 and oral Vanco d# 5 ) (7) Dysphagia Assessment & Plan: See GI consult- S/P PEG 10/04/16. (8) colonic mass Plan: F/U with ID recommendations Monitor Labs and culture Sputum culture: Pseudomonas CT Chest: Impression: Extensive pneumonia involving both lungs as described above. 5-6 cm cavitary focus suspicious for lung abscess in the right upper lobe. Trace ascites Tracheostomy in good position . Steve Rader MD November 14, 2016 23:02
--- NOTE | 2016-11-14 23:29 | Infectious Diseases Prog Note ---
Assessment/Plan Assessment/Plan ASSESSMENT: 66 y/o male with: // VAP SCx: MDR ACB and PSA CT : Since previous exam of 2 days earlier, marked worsening of right lower lobe dense consolidation, consistent with rapidly progressing pneumonia. // probable UTI : UCx yeast and VRE // COPD exacerbation - delayed SCx 4+ PSA SP Rx - CXR 09/27: Lungs are hyperinflated. No new infiltrates - negative: influenza // Leukocytosis, improved , US : no evidence of Pl effusion or Empyema // Hypotension SP // Abd pain ?etio CDiff neg , LAC : Nl - Ct of Abd : 4.4 x 3 x 4.4 cm filling defect within the proximal ascending colon.Appearance is that of a polyp on a stalk. Size of this lesion raises concern for malignancy. // Ro C Diff Neg vs Isch colitis // Febrile low grade , SP // HIV and Hep B/C : neg // colon mass ro cancer , GI is following CT: Large cecal mass and other polypoid colonic masses, detailed previously , again demonstrated // - PEG 10/04 // Acute VDRF - intubated 09/20, 10/03 SP trach // Severe pulmonary HTN / grade I diastolic dysfunction / mod TR // Pulmonary nodules // Chronic RLE DVT // Tobacco abuse // [place] resident // Negative MRSA, VRE screens // NKDA // Full Code PLAN: - cont Merrem , Colistin INH , Zyvox and Mycamine d# 5 and Levaquin d# 3 ( 11/09 SP Vanco d# 6 / 10 and oral Vanco d# 5 ) ( 10/17 SP Ceftazidime d# 14 ) ( 10/13 SP Jairon nebs d# 14 ) ( 10/11 SP Flagyl d# 10 ) ( 10/04 SP oral Vanco d# 3 ) ( 09/24 SP amikacin, invanz d# 5 / 5 ) ( 09/21 SP IV vancomycin d# 2 ) - taper steroids per pulm - monitor CBC, temperatures - monitor BMP - monitor CXR - vent support, wean as tolerated - CT of chest Subjective Allergies: Coded Allergies: No Known Allergies (Unverified , 06/17/16) Subjective leukocytes improved Objective Vital Signs Last 24 Hour Vital Signs Date Time Temp Pulse Resp B/P Pulse Ox O2 Delivery O2 Flow Rate FiO2 11/14/16 23:06 104 16 98 Mechanical Ventilator 40 11/14/16 22:33 106 20 40 11/14/16 20:58 102 20 40 11/14/16 20:48 40 11/14/16 20:43 98.6 116 22 122/73 96 Mechanical Ventilator 40 11/14/16 20:26 110 16 99 Mechanical Ventilator 40 11/14/16 20:16 108 22 100 Mechanical Ventilator 40 11/14/16 20:00 113 11/14/16 19:00 108 22 40 11/14/16 17:05 119 22 40 11/14/16 16:36 99.0 105 18 97/61 100 Mechanical Ventilator 40 11/14/16 16:00 108 11/14/16 16:00 40 11/14/16 15:08 114 23 40 11/14/16 13:12 104 17 40 11/14/16 12:00 97.4 108 18 92/42 100 Mechanical Ventilator 40 11/14/16 12:00 40 11/14/16 11:43 101 11/14/16 10:56 118 16 40 11/14/16 10:41 115 16 98 Mechanical Ventilator 40 11/14/16 09:40 114 16 99 Mechanical Ventilator 40 11/14/16 09:30 118 17 99 Mechanical Ventilator 40 11/14/16 08:48 116 16 40 11/14/16 08:00 97.8 108 18 93/66 97 Mechanical Ventilator 40 11/14/16 08:00 40 11/14/16 07:47 112 11/14/16 07:05 115 16 40 11/14/16 05:25 106 16 40 11/14/16 04:07 104 17 98 Mechanical Ventilator 40 11/14/16 04:00 40 11/14/16 04:00 97.9 107 18 106/68 99 Mechanical Ventilator 40 11/14/16 03:41 109 11/14/16 03:22 101 16 40 11/14/16 01:08 91 21 40 11/14/16 00:25 94 21 99 Mechanical Ventilator 30 11/14/16 00:11 91 20 98 Mechanical Ventilator 40 11/14/16 00:00 40 11/14/16 00:00 97.9 114 18 105/77 99 Mechanical Ventilator 40 11/13/16 23:43 114 Height (Feet): 6 Height (Inches): 2.00 Weight (Pounds): 126 Current Medications Medications (Trade) Dose Ordered Sig/Shraddha Route PRN Reason Start Time Stop Time Status Last Admin Dose Admin Acetaminophen (Tylenol) 650 mg Q4H PRN ORAL fever>100.5 11/02/16 17:00 12/02/16 16:59 Acetaminophen 650 mg 650 mg Q4H PRN GT headache 11/03/16 08:00 12/03/16 07:59 11/14/16 11:15 Colistimethate Sodium 150 mg 150 mg Q12HR@10,22 INH 11/09/16 22:00 11/16/16 21:59 11/14/16 19:53 Dextrose (Dextrose 50%) STAT PRN IV Hypoglycemia 11/02/16 17:00 12/02/16 16:59 Insulin Aspart (NovoLOG) start when feeding started Q6HR SUBQ 11/02/16 18:00 12/02/16 17:59 11/14/16 11:15 Lansoprazole (Prevacid) 30 mg DAILY GT 10/31/16 09:00 11/30/16 08:59 11/14/16 08:15 Levalbuterol HCl (Xopenex) 1.25 mg Q4H PRN HHN Shortness of Breath 11/12/16 13:30 11/17/16 13:29 11/14/16 23:06 Levofloxacin (Levaquin 750mg/ D5W) 150 ml @ 100 mls/hr Q24H IVPB 11/11/16 14:30 11/18/16 14:29 11/14/16 15:06 Linezolid (Zyvox) 300 ml @ 300 mls/hr Q12HR IVPB 11/09/16 21:00 11/16/16 20:59 11/14/16 22:20 Meropenem 1 gm/ Sodium Chloride 110 ml @ 220 mls/hr Q8HR IVPB 11/09/16 22:00 11/17/16 21:59 11/14/16 13:10 Metoclopramide HCl (Reglan) 10 mg THREE TIMES A DAY GT 10/24/16 19:00 11/23/16 18:59 11/14/16 17:38 Micafungin Sodium 100 mg/Sodium Chloride 110 ml @ 110 mls/hr Q24H IVPB 11/10/16 20:00 11/17/16 19:59 11/14/16 20:36 Ondansetron HCl (Zofran) 4 mg Q6H PRN IVP Nausea & Vomiting 11/02/16 17:00 12/02/16 16:59 Polyethylene Glycol (Miralax) 17 gm DAILYPRN PRN GT Constipation 10/25/16 01:00 11/24/16 00:59 11/03/16 00:00 Sodium Chloride 500 ml @ 999 mls/hr PRN PRN IVPB For hypotension 11/09/16 17:15 12/09/16 17:14 11/10/16 22:00 Sodium Chloride 1,000 ml @ 75 mls/hr [id number] IV 11/11/16 01:00 12/11/16 00:59 11/14/16 07:23 KIMBERLEE HINKLE M.D. November 14, 2016 23:29
--- NOTE | 2016-11-14 23:30 | Infectious Diseases Prog Note ---
Assessment/Plan Assessment/Plan ASSESSMENT: 66 y/o male with: // VAP SCx: MDR ACB and PSA , repeat Scx: PSA CT :Extensive pneumonia involving both lungs as described above. 5-6 cm cavitary focus suspicious for lung abscess in the right upper lobe. // probable UTI : UCx yeast and VRE // COPD exacerbation - delayed SCx 4+ PSA SP Rx - CXR 09/27: Lungs are hyperinflated. No new infiltrates - negative: influenza // Leukocytosis, improved , US : no evidence of Pl effusion or Empyema // Hypotension SP // Abd pain ?etio CDiff neg , LAC : Nl - Ct of Abd : 4.4 x 3 x 4.4 cm filling defect within the proximal ascending colon.Appearance is that of a polyp on a stalk. Size of this lesion raises concern for malignancy. // Ro C Diff Neg vs Isch colitis // Febrile low grade , SP // HIV and Hep B/C : neg // colon mass ro cancer , GI is following CT: Large cecal mass and other polypoid colonic masses, detailed previously , again demonstrated // - PEG 10/04 // Acute VDRF - intubated 09/20, 10/03 SP trach // Severe pulmonary HTN / grade I diastolic dysfunction / mod TR // Pulmonary nodules // Chronic RLE DVT // Tobacco abuse // [place] resident // Negative MRSA, VRE screens // NKDA // Full Code PLAN: - cont Merrem , Colistin INH , Zyvox and Mycamine d# 6 / and Levaquin d# ( 5/ SP Vanco d# 6 / 10 and oral Vanco d# 5 ) ( 10/17 SP Ceftazidime d# 14 ) ( 10/13 SP Jairon nebs d# 14 ) ( 10/11 SP Flagyl d# 10 ) ( 10/04 SP oral Vanco d# 3 ) ( 09/24 SP amikacin, invanz d# 5 / 5 ) ( 09/21 SP IV vancomycin d# 2 ) - taper steroids per pulm - monitor CBC, temperatures - monitor BMP - monitor CXR - vent support, wean as tolerated - need for IR to drain the abscess , will defer to Pul Subjective Allergies: Coded Allergies: No Known Allergies (Unverified , 06/17/16) Subjective afebrile Objective Vital Signs Last 24 Hour Vital Signs Date Time Temp Pulse Resp B/P Pulse Ox O2 Delivery O2 Flow Rate FiO2 11/14/16 23:06 104 16 98 Mechanical Ventilator 40 11/14/16 22:33 106 20 40 11/14/16 20:58 102 20 40 11/14/16 20:48 40 11/14/16 20:43 98.6 116 22 122/73 96 Mechanical Ventilator 40 11/14/16 20:26 110 16 99 Mechanical Ventilator 40 11/14/16 20:16 108 22 100 Mechanical Ventilator 40 11/14/16 20:00 113 11/14/16 19:00 108 22 40 11/14/16 17:05 119 22 40 11/14/16 16:36 99.0 105 18 97/61 100 Mechanical Ventilator 40 11/14/16 16:00 108 11/14/16 16:00 40 11/14/16 15:08 114 23 40 11/14/16 13:12 104 17 40 11/14/16 12:00 97.4 108 18 92/42 100 Mechanical Ventilator 40 11/14/16 12:00 40 11/14/16 11:43 101 11/14/16 10:56 118 16 40 11/14/16 10:41 115 16 98 Mechanical Ventilator 40 11/14/16 09:40 114 16 99 Mechanical Ventilator 40 11/14/16 09:30 118 17 99 Mechanical Ventilator 40 11/14/16 08:48 116 16 40 11/14/16 08:00 97.8 108 18 93/66 97 Mechanical Ventilator 40 11/14/16 08:00 40 11/14/16 07:47 112 11/14/16 07:05 115 16 40 11/14/16 05:25 106 16 40 11/14/16 04:07 104 17 98 Mechanical Ventilator 40 11/14/16 04:00 40 11/14/16 04:00 97.9 107 18 106/68 99 Mechanical Ventilator 40 11/14/16 03:41 109 11/14/16 03:22 101 16 40 11/14/16 01:08 91 21 40 11/14/16 00:25 94 21 99 Mechanical Ventilator 30 11/14/16 00:11 91 20 98 Mechanical Ventilator 40 11/14/16 00:00 40 11/14/16 00:00 97.9 114 18 105/77 99 Mechanical Ventilator 40 11/13/16 23:43 114 Height (Feet): 6 Height (Inches): 2.00 Weight (Pounds): 126 HEENT: anicteric Respiratory/Chest: normal breath sounds Cardiovascular: regularly irregular Abdomen: no mass Current Medications Medications (Trade) Dose Ordered Sig/Shraddha Route PRN Reason Start Time Stop Time Status Last Admin Dose Admin Acetaminophen (Tylenol) 650 mg Q4H PRN ORAL fever>100.5 11/02/16 17:00 12/02/16 16:59 Acetaminophen 650 mg 650 mg Q4H PRN GT headache 11/03/16 08:00 12/03/16 07:59 11/14/16 11:15 Colistimethate Sodium 150 mg 150 mg Q12HR@10,22 INH 11/09/16 22:00 11/16/16 21:59 11/14/16 19:53 Dextrose (Dextrose 50%) STAT PRN IV Hypoglycemia 11/02/16 17:00 12/02/16 16:59 Insulin Aspart (NovoLOG) start when feeding started Q6HR SUBQ 11/02/16 18:00 12/02/16 17:59 11/14/16 11:15 Lansoprazole (Prevacid) 30 mg DAILY GT 10/31/16 09:00 11/30/16 08:59 11/14/16 08:15 Levalbuterol HCl (Xopenex) 1.25 mg Q4H PRN HHN Shortness of Breath 11/12/16 13:30 11/17/16 13:29 11/14/16 23:06 Levofloxacin (Levaquin 750mg/ D5W) 150 ml @ 100 mls/hr Q24H IVPB 11/11/16 14:30 11/18/16 14:29 11/14/16 15:06 Linezolid (Zyvox) 300 ml @ 300 mls/hr Q12HR IVPB 11/09/16 21:00 11/16/16 20:59 11/14/16 22:20 Meropenem 1 gm/ Sodium Chloride 110 ml @ 220 mls/hr Q8HR IVPB 11/09/16 22:00 11/17/16 21:59 11/14/16 13:10 Metoclopramide HCl (Reglan) 10 mg THREE TIMES A DAY GT 10/24/16 19:00 11/23/16 18:59 11/14/16 17:38 Micafungin Sodium 100 mg/Sodium Chloride 110 ml @ 110 mls/hr Q24H IVPB 11/10/16 20:00 11/17/16 19:59 11/14/16 20:36 Ondansetron HCl (Zofran) 4 mg Q6H PRN IVP Nausea & Vomiting 11/02/16 17:00 12/02/16 16:59 Polyethylene Glycol (Miralax) 17 gm DAILYPRN PRN GT Constipation 10/25/16 01:00 11/24/16 00:59 11/03/16 00:00 Sodium Chloride 500 ml @ 999 mls/hr PRN PRN IVPB For hypotension 11/09/16 17:15 12/09/16 17:14 11/10/16 22:00 Sodium Chloride 1,000 ml @ 75 mls/hr [id number] IV 11/11/16 01:00 12/11/16 00:59 11/14/16 07:23 KIMBERLEE HINKLE M.D. November 14, 2016 23:30
[2016-11-15] VITALS: BP 94/60
[2016-11-15] MEDS: NovoLOG Insulin Flexpen SUBQ SCH ×5 (00:55→23:55)
[2016-11-15] MEDS: Levalbuterol Inh UD 1.25mg/0.5ml HHN PRN ×5 (03:06→19:09)
[2016-11-15 04:00] VITALS: BP 98/67
[2016-11-15 05:29] LABS: MEAN CORPUSCULAR HEMOGLOBIN 28.2 PG (27.0-31.0); MEAN CORPUSCULAR HGB CONC 32.9 G/DL (32.0-36.0); MEAN CORPUSCULAR VOLUME 86 FL (80-99); MEAN PLATELET VOLUME 6.4 FL (6.5-10.1); PLATELET COUNT 388 K/UL (150-450); RED BLOOD COUNT 2.93 M/UL (4.70-6.10); RED CELL DISTRIBUTION WIDTH 15.7 % (11.6-14.8)
[2016-11-15 05:39] LABS: WHITE BLOOD COUNT 25.1 K/UL (4.8-10.8)
[2016-11-15 05:47] LABS: ALANINE AMINOTRANSFERASE 36 U/L (3-41); ALBUMIN/GLOBULIN RATIO 0.3 (1.0-2.7); ANION GAP 8 (5-15); ASPARTATE AMINO TRANSFERASE 40 U/L (5-40); CALCIUM 8.3 mg/dL (8.6-10.2); CARBON DIOXIDE 32 mEQ/L (20-30); CHLORIDE 103 mEQ/L (98-107); CREATININE 0.6 mg/dL (0.7-1.2); GLOMERULAR FILTRATION RATE > 60 mL/min (>60); HEMOLYSIS 4; MAGNESIUM 2.3 mg/dL (1.7-2.5); PHOSPHORUS 2.9 mg/dL (2.5-4.8); POTASSIUM 4.2 mEQ/L (3.4-4.9); SODIUM 143 mEQ/L (135-145); TOTAL PROTEIN 5.3 g/dL (6.6-8.7)
[2016-11-15] MEDS: Meropenem 1 GM in NS 110 ML IVPB SCH ×3 (06:13→23:10)
[2016-11-15 08:00] VITALS: BP 131/79
[2016-11-15 08:00] LABS: ANISOCYTOSIS 1+; BAND NEUTROPHILS % (MANUAL) 2 % (0-8); BASOPHILS % (MANUAL) 0 % (0-2); EOSINOPHILS % (MANUAL) 0 % (0-3); HYPOCHROMASIA 1+; LYMPHOCYTES % (MANUAL) 6 % (20-45); NEUTROPHILS % (MANUAL) 92 % (45-75); PLATELET ESTIMATE ADEQUATE; PLATELET MORPHOLOGY NORMAL; TOTAL CELLS COUNTED 100
[2016-11-15] MEDS: Colistin for inhalation INH SCH ×2 (09:23→21:23)
--- NOTE | 2016-11-15 10:09 | Internal Med Progress Note ---
Subjective Physician Name Steve Rader Attending Physician Steve Rader MD Current Medications Medications (Trade) Dose Ordered Sig/Shraddha Route PRN Reason Start Time Stop Time Status Last Admin Dose Admin Acetaminophen (Tylenol) 650 mg Q4H PRN ORAL fever>100.5 11/02/16 17:00 12/02/16 16:59 Acetaminophen 650 mg 650 mg Q4H PRN GT headache 11/03/16 08:00 12/03/16 07:59 11/14/16 11:15 Colistimethate Sodium 150 mg 150 mg Q12HR@10,22 INH 11/09/16 22:00 11/16/16 21:59 11/15/16 09:23 Dextrose (Dextrose 50%) STAT PRN IV Hypoglycemia 11/02/16 17:00 12/02/16 16:59 Insulin Aspart (NovoLOG) start when feeding started Q6HR SUBQ 11/02/16 18:00 12/02/16 17:59 11/15/16 00:55 Lansoprazole (Prevacid) 30 mg DAILY GT 10/31/16 09:00 11/30/16 08:59 11/15/16 09:25 Levalbuterol HCl (Xopenex) 1.25 mg Q4H PRN HHN Shortness of Breath 11/12/16 13:30 11/17/16 13:29 11/15/16 07:16 Levofloxacin (Levaquin 750mg/ D5W) 150 ml @ 100 mls/hr Q24H IVPB 11/11/16 14:30 11/18/16 14:29 11/14/16 15:06 Linezolid (Zyvox) 300 ml @ 300 mls/hr Q12HR IVPB 11/09/16 21:00 11/16/16 20:59 11/15/16 09:25 Meropenem 1 gm/ Sodium Chloride 110 ml @ 220 mls/hr Q8HR IVPB 11/09/16 22:00 11/17/16 21:59 11/15/16 06:13 Metoclopramide HCl (Reglan) 10 mg THREE TIMES A DAY GT 10/24/16 19:00 11/23/16 18:59 11/15/16 09:25 Micafungin Sodium 100 mg/Sodium Chloride 110 ml @ 110 mls/hr Q24H IVPB 11/10/16 20:00 11/17/16 19:59 11/14/16 20:36 Ondansetron HCl (Zofran) 4 mg Q6H PRN IVP Nausea & Vomiting 11/02/16 17:00 12/02/16 16:59 Polyethylene Glycol (Miralax) 17 gm DAILYPRN PRN GT Constipation 10/25/16 01:00 11/24/16 00:59 11/03/16 00:00 Sodium Chloride 500 ml @ 999 mls/hr PRN PRN IVPB For hypotension 11/09/16 17:15 12/09/16 17:14 11/10/16 22:00 Sodium Chloride 1,000 ml @ 75 mls/hr [id number] IV 11/11/16 01:00 12/11/16 00:59 11/15/16 06:13 Allergies: Coded Allergies: No Known Allergies (Unverified , 06/17/16) Subjective awake, alert, responsive on Vent, C/O SOB, " I can not breath", less abdominal pain. WBC decrease 25.1 Objective Last Vital Signs Date Time Temp Pulse Resp B/P Pulse Ox O2 Delivery O2 Flow Rate FiO2 11/15/16 09:10 107 19 95 Mechanical Ventilator 40 11/15/16 08:00 97.6 131/79 11/12/16 16:00 2.0 Laboratory Tests Test 11/15/16 04:10 White Blood Count 25.1 K/UL (4.8-10.8) *H Red Blood Count 2.93 M/UL (4.70-6.10) L Hemoglobin 8.3 G/DL (14.2-18.0) L Hematocrit 25.1 % (42.0-52.0) L Mean Corpuscular Volume 86 FL (80-99) Mean Corpuscular Hemoglobin 28.2 PG (27.0-31.0) Mean Corpuscular Hemoglobin Concent 32.9 G/DL (32.0-36.0) Red Cell Distribution Width 15.7 % (11.6-14.8) H Platelet Count 388 K/UL (150-450) Mean Platelet Volume 6.4 FL (6.5-10.1) L Neutrophils (%) (Auto) % (45.0-75.0) Lymphocytes (%) (Auto) % (20.0-45.0) Monocytes (%) (Auto) % (1.0-10.0) Eosinophils (%) (Auto) % (0.0-3.0) Basophils (%) (Auto) % (0.0-2.0) Differential Total Cells Counted 100 Neutrophils % (Manual) 92 % (45-75) H Lymphocytes % (Manual) 6 % (20-45) L Monocytes % (Manual) 0 % (1-10) L Eosinophils % (Manual) 0 % (0-3) Basophils % (Manual) 0 % (0-2) Band Neutrophils 2 % (0-8) Platelet Estimate Adequate Platelet Morphology Normal Hypochromasia 1+ Anisocytosis 1+ Sodium Level 143 mEQ/L (135-145) Potassium Level 4.2 mEQ/L (3.4-4.9) Chloride Level 103 mEQ/L (98-107) Carbon Dioxide Level 32 mEQ/L (20-30) H Anion Gap 8 (5-15) Blood Urea Nitrogen 24 mg/dL (7-23) H Creatinine 0.6 mg/dL (0.7-1.2) L Estimat Glomerular Filtration Rate > 60 mL/min (>60) Glucose Level 78 mg/dL (74-106) Calcium Level 8.3 mg/dL (8.6-10.2) L Phosphorus Level 2.9 mg/dL (2.5-4.8) Magnesium Level 2.3 mg/dL (1.7-2.5) Total Bilirubin 0.3 mg/dL (0.0-1.2) Aspartate Amino Transf (AST/SGOT) 40 U/L (5-40) Alanine Aminotransferase (ALT/SGPT) 36 U/L (3-41) Alkaline Phosphatase 354 U/L (40-129) H Total Protein 5.3 g/dL (6.6-8.7) L Albumin 1.5 g/dL (3.5-5.2) L Globulin 3.8 g/dL Albumin/Globulin Ratio 0.3 (1.0-2.7) L Intake and Output 11/14/16 11/15/16 19:00 07:00 Intake Total 2491.25 ml 1435.75 ml Output Total 250 ml 200 ml Balance 2241.25 ml 1235.75 ml Free Water 300 ml 150 ml IV Total 1481.25 ml 1090.75 ml Tube Feeding 650 ml 195 ml Other 60 ml Output Urine Total 250 ml 200 ml # Voids 1 # Bowel Movements 1 Objective General: No acute distress, awake and alert HEENT: NCAT, sclera anicteric, PERRL, EOMI, poor dentition. Neck: Supple, Trach intact. Lungs: clear to auscultation bilaterally, no Wheeze, decrease air on bases. Heart: Regular rate and rhythm, normal S1/S2, no murmurs Abdomen: soft, less tenderness, less distended. Normoactive bowel sounds.PEG site is clean. : Johnson cath Extremities: No Cyanosis , clubbing, Upper extremities edema. Neuro: A&O x 3, Able to move all extremities. Muscle atrophy. Skin: warm, no rashes Assessment/Plan Assessment/Plan (1) Lung nodule (2) DVT (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 (3) Acute respiratory failure Assessment & Plan: S/P tracheostomy 10/03/16. Failed weaning trial. Cont vent per pulmonary (4) COPD exacerbation Assessment & Plan: Continue DuoNeb. Continue vent per pulmonary. (5) Pneumonia (6) Leukocytosis Assessment & Plan: cont Merrem , Colistin INH , Zyvox, Mycamine, Levaquin ( 5/6 SP Vanco IV and oral Vanco ) (7) Dysphagia Assessment & Plan: See GI consult- S/P PEG 10/04/16. (8) colonic mass Plan: F/U with ID recommendations Monitor Labs and culture Sputum culture: Pseudomonas Consider Duplex of UE R/O DVT CT Chest: Extensive pneumonia involving both lungs as described above. 5-6 cm cavitary focus suspicious for lung abscess in the right upper lobe. Trace ascites Tracheostomy in good position . Steve Rader MD November 15, 2016 10:09
[2016-11-15 11:43] VITALS: BP 98/55
--- NOTE | 2016-11-15 12:15 | Pulmonology Progress Note ---
Assessment/Plan Problems: (1) Lung abscess (2) Severe sepsis (3) Abdominal distention (4) Respiratory failure (5) COPD exacerbation (6) Emphysema of lung (7) Colonic mass Assessment/Plan cont Merrem , Colistin INH , Zyvox and Mycamine Levaquin ( 11/09 SP Vanco d# 6 / 10 and oral Vanco d# 5 ) wbc decreaseing continue current vent setting, titrate fio2 to sat of 92% not tolerating weaning CT chest reviewed, extensive infiltrate ( 11/14) Subjective Allergies: Coded Allergies: No Known Allergies (Unverified , 06/17/16) Objective Last 24 Hour Vital Signs Date Time Temp Pulse Resp B/P Pulse Ox O2 Delivery O2 Flow Rate FiO2 11/15/16 11:43 98.0 116 16 98/55 100 Mechanical Ventilator 11/15/16 11:04 108 18 96 Mechanical Ventilator 40 11/15/16 11:02 108 18 40 11/15/16 10:33 40 11/15/16 10:32 105 11/15/16 09:20 107 19 99 Mechanical Ventilator 40 11/15/16 09:10 107 19 95 Mechanical Ventilator 40 11/15/16 09:08 107 19 40 11/15/16 08:00 97.6 107 20 131/79 97 Mechanical Ventilator 40 11/15/16 07:21 117 16 99 Mechanical Ventilator 30 11/15/16 07:11 109 17 96 Mechanical Ventilator 40 11/15/16 07:10 109 17 40 11/15/16 05:20 111 18 40 11/15/16 04:00 98.2 112 20 98/67 97 Mechanical Ventilator 40 11/15/16 04:00 40 11/15/16 03:40 90 11/15/16 03:33 103 18 99 Mechanical Ventilator 30 11/15/16 03:07 103 16 98 Mechanical Ventilator 40 11/15/16 03:05 97 16 40 11/15/16 01:10 101 20 40 11/15/16 00:56 40 11/15/16 00:27 96 11/15/16 00:00 97.5 119 19 94/60 96 Mechanical Ventilator 40 11/14/16 23:28 98 21 99 Mechanical Ventilator 30 11/14/16 23:06 104 16 98 Mechanical Ventilator 40 11/14/16 22:33 106 20 40 11/14/16 20:58 102 20 40 11/14/16 20:48 40 11/14/16 20:43 98.6 116 22 122/73 96 Mechanical Ventilator 40 11/14/16 20:26 110 16 99 Mechanical Ventilator 40 11/14/16 20:16 108 22 100 Mechanical Ventilator 40 11/14/16 20:00 113 11/14/16 19:00 108 22 40 11/14/16 17:05 119 22 40 11/14/16 16:36 99.0 105 18 97/61 100 Mechanical Ventilator 40 11/14/16 16:00 108 11/14/16 16:00 40 11/14/16 15:08 114 23 40 11/14/16 13:12 104 17 40 Intake and Output 11/14/16 11/15/16 19:00 07:00 Intake Total 2491.25 ml 1435.75 ml Output Total 250 ml 200 ml Balance 2241.25 ml 1235.75 ml Free Water 300 ml 150 ml IV Total 1481.25 ml 1090.75 ml Tube Feeding 650 ml 195 ml Other 60 ml Output Urine Total 250 ml 200 ml # Voids 1 # Bowel Movements 1 Objective Status: awake HEENT: atraumatic, normocephalic Lungs: clear, decreased breath sounds Heart: HR/BP stable Abdomen: soft, non-tender Extremities: no C/C/E, edema Laboratory Tests 11/15/16 04:10: White Blood Count 25.1*H, Red Blood Count 2.93L, Hemoglobin 8.3L, Hematocrit 25.1L, Mean Corpuscular Volume 86, Mean Corpuscular Hemoglobin 28.2, Mean Corpuscular Hemoglobin Concent 32.9, Red Cell Distribution Width 15.7H, Platelet Count 388, Mean Platelet Volume 6.4L, Neutrophils (%) (Auto) , Lymphocytes (%) (Auto) , Monocytes (%) (Auto) , Eosinophils (%) (Auto) , Basophils (%) (Auto) , Differential Total Cells Counted 100, Neutrophils % ( Manual) 92H, Lymphocytes % (Manual) 6L, Monocytes % (Manual) 0L, Eosinophils % ( Manual) 0, Basophils % (Manual) 0, Band Neutrophils 2, Platelet Estimate Adequate, Platelet Morphology Normal, Hypochromasia 1+, Anisocytosis 1+, Sodium Level 143, Potassium Level 4.2, Chloride Level 103, Carbon Dioxide Level 32H, Anion Gap 8, Blood Urea Nitrogen 24H, Creatinine 0.6L, Estimat Glomerular Filtration Rate > 60, Glucose Level 78, Calcium Level 8.3L, Phosphorus Level 2.9 , Magnesium Level 2.3, Total Bilirubin 0.3, Aspartate Amino Transf (AST/SGOT) 40 , Alanine Aminotransferase (ALT/SGPT) 36, Alkaline Phosphatase 354H, Total Protein 5.3L, Albumin 1.5L, Globulin 3.8, Albumin/Globulin Ratio 0.3L Current Medications Medications (Trade) Dose Ordered Sig/Shraddha Route PRN Reason Start Time Stop Time Status Last Admin Dose Admin Acetaminophen (Tylenol) 650 mg Q4H PRN ORAL fever>100.5 11/02/16 17:00 12/02/16 16:59 Acetaminophen 650 mg 650 mg Q4H PRN GT headache 11/03/16 08:00 12/03/16 07:59 11/14/16 11:15 Colistimethate Sodium 150 mg 150 mg Q12HR@10,22 INH 11/09/16 22:00 11/16/16 21:59 11/15/16 09:23 Dextrose (Dextrose 50%) STAT PRN IV Hypoglycemia 11/02/16 17:00 12/02/16 16:59 Insulin Aspart (NovoLOG) start when feeding started Q6HR SUBQ 11/02/16 18:00 12/02/16 17:59 11/15/16 00:55 Lansoprazole (Prevacid) 30 mg DAILY GT 10/31/16 09:00 11/30/16 08:59 11/15/16 09:25 Levalbuterol HCl (Xopenex) 1.25 mg Q4H PRN HHN Shortness of Breath 11/12/16 13:30 11/17/16 13:29 11/15/16 11:11 Levofloxacin (Levaquin 750mg/ D5W) 150 ml @ 100 mls/hr Q24H IVPB 11/11/16 14:30 11/18/16 14:29 11/14/16 15:06 Linezolid (Zyvox) 300 ml @ 300 mls/hr Q12HR IVPB 11/09/16 21:00 11/16/16 20:59 11/15/16 09:25 Meropenem 1 gm/ Sodium Chloride 110 ml @ 220 mls/hr Q8HR IVPB 11/09/16 22:00 11/17/16 21:59 11/15/16 06:13 Metoclopramide HCl (Reglan) 10 mg THREE TIMES A DAY GT 10/24/16 19:00 11/23/16 18:59 11/15/16 09:25 Micafungin Sodium 100 mg/Sodium Chloride 110 ml @ 110 mls/hr Q24H IVPB 11/10/16 20:00 11/17/16 19:59 11/14/16 20:36 Ondansetron HCl (Zofran) 4 mg Q6H PRN IVP Nausea & Vomiting 11/02/16 17:00 12/02/16 16:59 Polyethylene Glycol (Miralax) 17 gm DAILYPRN PRN GT Constipation 10/25/16 01:00 11/24/16 00:59 11/03/16 00:00 Sodium Chloride 500 ml @ 999 mls/hr PRN PRN IVPB For hypotension 11/09/16 17:15 12/09/16 17:14 11/10/16 22:00 Sodium Chloride 1,000 ml @ 75 mls/hr [id number] IV 11/11/16 01:00 12/11/16 00:59 11/15/16 06:13 REN WRIGHT November 15, 2016 12:15
--- NOTE | 2016-11-15 14:16 | Cardiac Electrophysiology PN ---
Assessment/Plan Assessment/Plan 1. Sinus tachycardia due to sepsis.HR up to 120s despite abx. 2. Hypotension.Resolved with IV fluid and antibiotics. 3. Severe pulmonary hypertension of 66 due to severe chronic obstructive pulmonary disease. 4. Ventilator-dependant respiratory failure, status post tracheostomy. 5. Dysphagia, status post percutaneous endoscopic gastrostomy placement. 6. Sepsis due to MDR ACB and PSA , on broad-spectrum intravenous antibiotics and antifungal per ID. 7. Lung abscess 8. Colonic mass GI work up per Dr Yadira CHAVEZ RN Subjective Subjective Alert on Vent via tracheostomy with PEG.No arrhythmias overnight. Is able to communicate despite tracheostomy. Said he is SOB. Objective Last 24 Hour Vital Signs Date Time Temp Pulse Resp B/P Pulse Ox O2 Delivery O2 Flow Rate FiO2 11/15/16 13:46 90 11/15/16 13:02 125 16 40 11/15/16 12:00 40 11/15/16 11:43 98.0 116 16 98/55 100 Mechanical Ventilator 11/15/16 11:04 108 18 96 Mechanical Ventilator 40 11/15/16 11:02 108 18 40 11/15/16 10:33 40 11/15/16 10:32 105 11/15/16 09:20 107 19 99 Mechanical Ventilator 40 11/15/16 09:10 107 19 95 Mechanical Ventilator 40 11/15/16 09:08 107 19 40 11/15/16 08:00 97.6 107 20 131/79 97 Mechanical Ventilator 40 11/15/16 07:21 117 16 99 Mechanical Ventilator 30 11/15/16 07:11 109 17 96 Mechanical Ventilator 40 11/15/16 07:10 109 17 40 11/15/16 05:20 111 18 40 11/15/16 04:00 98.2 112 20 98/67 97 Mechanical Ventilator 40 11/15/16 04:00 40 11/15/16 03:40 90 11/15/16 03:33 103 18 99 Mechanical Ventilator 30 11/15/16 03:07 103 16 98 Mechanical Ventilator 40 11/15/16 03:05 97 16 40 11/15/16 01:10 101 20 40 11/15/16 00:56 40 11/15/16 00:27 96 11/15/16 00:00 97.5 119 19 94/60 96 Mechanical Ventilator 40 11/14/16 23:28 98 21 99 Mechanical Ventilator 30 11/14/16 23:06 104 16 98 Mechanical Ventilator 40 11/14/16 22:33 106 20 40 11/14/16 20:58 102 20 40 11/14/16 20:48 40 11/14/16 20:43 98.6 116 22 122/73 96 Mechanical Ventilator 40 11/14/16 20:26 110 16 99 Mechanical Ventilator 40 11/14/16 20:16 108 22 100 Mechanical Ventilator 40 11/14/16 20:00 113 11/14/16 19:00 108 22 40 11/14/16 17:05 119 22 40 11/14/16 16:36 99.0 105 18 97/61 100 Mechanical Ventilator 40 11/14/16 16:00 108 11/14/16 16:00 40 11/14/16 15:08 114 23 40 Intake and Output 11/14/16 11/15/16 19:00 07:00 Intake Total 2491.25 ml 1435.75 ml Output Total 250 ml 200 ml Balance 2241.25 ml 1235.75 ml Free Water 300 ml 150 ml IV Total 1481.25 ml 1090.75 ml Tube Feeding 650 ml 195 ml Other 60 ml Output Urine Total 250 ml 200 ml # Voids 1 # Bowel Movements 1 Laboratory Tests Test 11/15/16 04:10 White Blood Count 25.1 K/UL (4.8-10.8) *H Red Blood Count 2.93 M/UL (4.70-6.10) L Hemoglobin 8.3 G/DL (14.2-18.0) L Hematocrit 25.1 % (42.0-52.0) L Mean Corpuscular Volume 86 FL (80-99) Mean Corpuscular Hemoglobin 28.2 PG (27.0-31.0) Mean Corpuscular Hemoglobin Concent 32.9 G/DL (32.0-36.0) Red Cell Distribution Width 15.7 % (11.6-14.8) H Platelet Count 388 K/UL (150-450) Mean Platelet Volume 6.4 FL (6.5-10.1) L Neutrophils (%) (Auto) % (45.0-75.0) Lymphocytes (%) (Auto) % (20.0-45.0) Monocytes (%) (Auto) % (1.0-10.0) Eosinophils (%) (Auto) % (0.0-3.0) Basophils (%) (Auto) % (0.0-2.0) Differential Total Cells Counted 100 Neutrophils % (Manual) 92 % (45-75) H Lymphocytes % (Manual) 6 % (20-45) L Monocytes % (Manual) 0 % (1-10) L Eosinophils % (Manual) 0 % (0-3) Basophils % (Manual) 0 % (0-2) Band Neutrophils 2 % (0-8) Platelet Estimate Adequate Platelet Morphology Normal Hypochromasia 1+ Anisocytosis 1+ Sodium Level 143 mEQ/L (135-145) Potassium Level 4.2 mEQ/L (3.4-4.9) Chloride Level 103 mEQ/L (98-107) Carbon Dioxide Level 32 mEQ/L (20-30) H Anion Gap 8 (5-15) Blood Urea Nitrogen 24 mg/dL (7-23) H Creatinine 0.6 mg/dL (0.7-1.2) L Estimat Glomerular Filtration Rate > 60 mL/min (>60) Glucose Level 78 mg/dL (74-106) Calcium Level 8.3 mg/dL (8.6-10.2) L Phosphorus Level 2.9 mg/dL (2.5-4.8) Magnesium Level 2.3 mg/dL (1.7-2.5) Total Bilirubin 0.3 mg/dL (0.0-1.2) Aspartate Amino Transf (AST/SGOT) 40 U/L (5-40) Alanine Aminotransferase (ALT/SGPT) 36 U/L (3-41) Alkaline Phosphatase 354 U/L (40-129) H Total Protein 5.3 g/dL (6.6-8.7) L Albumin 1.5 g/dL (3.5-5.2) L Globulin 3.8 g/dL Albumin/Globulin Ratio 0.3 (1.0-2.7) L Objective HEAD AND NECK: No jugular venous distention, tracheostomy intact. LUNGS: Coarse rhonchi bilaterally. CARDIOVASCULAR: Tachycardic S1 and S2 with no gallop or murmur. ABDOMEN: Soft. Status post G-tube. EXTREMITIES: No pitting edema. OSWALD HILLS November 15, 2016 14:16
--- NOTE | 2016-11-15 15:11 | Infectious Diseases Prog Note ---
Assessment/Plan Assessment/Plan ASSESSMENT: 66 y/o male with: // VAP / RUL lung abscess - SCx: MDR ACB and PSA , repeat Scx: PSA - CT 11/14 :Extensive pneumonia involving both lungs as described above. 5-6 cm cavitary focus suspicious for lung abscess in the right upper lobe. // Probable UTI : UCx yeast and VRE // Leukocytosis - improving ( DVT, probable CA contributing, SP steroids ) // Hypotension SP // Febrile low grade SP // HIV and Hep B/C : neg // Colon mass ro cancer , GI is following CT: Large cecal mass and other polypoid colonic masses, detailed previously , again demonstrated // SP PEG 10/04 // Chronic VDRF SP trach // Severe pulmonary HTN / grade I diastolic dysfunction / mod TR // Pulmonary nodules // Chronic RLE DVT // Tobacco abuse // [place] resident // Negative MRSA, VRE screens // NKDA // Full Code PLAN: - cont Merrem, Colistin INH , Zyvox and Mycamine d# 7 / and Levaquin d# 4 / ( 11/09 SP Vanco d# 6 / 10 and oral Vanco d# 5 ) ( 10/17 SP Ceftazidime d# 14 ) ( 10/13 SP Jairon nebs d# 14 ) ( 10/11 SP Flagyl d# 10 ) ( 10/04 SP oral Vanco d# 3 ) ( 09/24 SP amikacin, invanz d# 5 / 5 ) ( 09/21 SP IV vancomycin d# 2 ) - monitor CBC, temperatures - monitor BMP - monitor CXR - vent support, trach care, aspiration precautions - need for IR to drain the abscess , will defer to Pulm Subjective Allergies: Coded Allergies: No Known Allergies (Unverified , 06/17/16) Subjective remains afebrile on vent Objective Vital Signs Last 24 Hour Vital Signs Date Time Temp Pulse Resp B/P Pulse Ox O2 Delivery O2 Flow Rate FiO2 11/15/16 13:46 90 11/15/16 13:02 125 16 40 11/15/16 12:00 40 11/15/16 11:43 98.0 116 16 98/55 100 Mechanical Ventilator 11/15/16 11:04 108 18 96 Mechanical Ventilator 40 11/15/16 11:02 108 18 40 11/15/16 10:33 40 11/15/16 10:32 105 11/15/16 09:20 107 19 99 Mechanical Ventilator 40 11/15/16 09:10 107 19 95 Mechanical Ventilator 40 11/15/16 09:08 107 19 40 11/15/16 08:00 97.6 107 20 131/79 97 Mechanical Ventilator 40 11/15/16 07:21 117 16 99 Mechanical Ventilator 30 11/15/16 07:11 109 17 96 Mechanical Ventilator 40 11/15/16 07:10 109 17 40 11/15/16 05:20 111 18 40 11/15/16 04:00 98.2 112 20 98/67 97 Mechanical Ventilator 40 11/15/16 04:00 40 11/15/16 03:40 90 11/15/16 03:33 103 18 99 Mechanical Ventilator 30 11/15/16 03:07 103 16 98 Mechanical Ventilator 40 11/15/16 03:05 97 16 40 11/15/16 01:10 101 20 40 11/15/16 00:56 40 11/15/16 00:27 96 11/15/16 00:00 97.5 119 19 94/60 96 Mechanical Ventilator 40 11/14/16 23:28 98 21 99 Mechanical Ventilator 30 11/14/16 23:06 104 16 98 Mechanical Ventilator 40 11/14/16 22:33 106 20 40 11/14/16 20:58 102 20 40 11/14/16 20:48 40 11/14/16 20:43 98.6 116 22 122/73 96 Mechanical Ventilator 40 11/14/16 20:26 110 16 99 Mechanical Ventilator 40 11/14/16 20:16 108 22 100 Mechanical Ventilator 40 11/14/16 20:00 113 11/14/16 19:00 108 22 40 11/14/16 17:05 119 22 40 11/14/16 16:36 99.0 105 18 97/61 100 Mechanical Ventilator 40 11/14/16 16:00 108 11/14/16 16:00 40 11/14/16 15:08 114 23 40 Height (Feet): 6 Height (Inches): 2.00 Weight (Pounds): 126 General Appearance: no acute distress HEENT: status post trach Respiratory/Chest: decreased breath sounds Cardiovascular: normal rate, regular rhythm Abdomen: normal bowel sounds, soft, non tender, non distended Laboratory Tests Test 11/15/16 04:10 White Blood Count 25.1 K/UL (4.8-10.8) *H Red Blood Count 2.93 M/UL (4.70-6.10) L Hemoglobin 8.3 G/DL (14.2-18.0) L Hematocrit 25.1 % (42.0-52.0) L Mean Corpuscular Volume 86 FL (80-99) Mean Corpuscular Hemoglobin 28.2 PG (27.0-31.0) Mean Corpuscular Hemoglobin Concent 32.9 G/DL (32.0-36.0) Red Cell Distribution Width 15.7 % (11.6-14.8) H Platelet Count 388 K/UL (150-450) Mean Platelet Volume 6.4 FL (6.5-10.1) L Neutrophils (%) (Auto) % (45.0-75.0) Lymphocytes (%) (Auto) % (20.0-45.0) Monocytes (%) (Auto) % (1.0-10.0) Eosinophils (%) (Auto) % (0.0-3.0) Basophils (%) (Auto) % (0.0-2.0) Differential Total Cells Counted 100 Neutrophils % (Manual) 92 % (45-75) H Lymphocytes % (Manual) 6 % (20-45) L Monocytes % (Manual) 0 % (1-10) L Eosinophils % (Manual) 0 % (0-3) Basophils % (Manual) 0 % (0-2) Band Neutrophils 2 % (0-8) Platelet Estimate Adequate Platelet Morphology Normal Hypochromasia 1+ Anisocytosis 1+ Sodium Level 143 mEQ/L (135-145) Potassium Level 4.2 mEQ/L (3.4-4.9) Chloride Level 103 mEQ/L (98-107) Carbon Dioxide Level 32 mEQ/L (20-30) H Anion Gap 8 (5-15) Blood Urea Nitrogen 24 mg/dL (7-23) H Creatinine 0.6 mg/dL (0.7-1.2) L Estimat Glomerular Filtration Rate > 60 mL/min (>60) Glucose Level 78 mg/dL (74-106) Calcium Level 8.3 mg/dL (8.6-10.2) L Phosphorus Level 2.9 mg/dL (2.5-4.8) Magnesium Level 2.3 mg/dL (1.7-2.5) Total Bilirubin 0.3 mg/dL (0.0-1.2) Aspartate Amino Transf (AST/SGOT) 40 U/L (5-40) Alanine Aminotransferase (ALT/SGPT) 36 U/L (3-41) Alkaline Phosphatase 354 U/L (40-129) H Total Protein 5.3 g/dL (6.6-8.7) L Albumin 1.5 g/dL (3.5-5.2) L Globulin 3.8 g/dL Albumin/Globulin Ratio 0.3 (1.0-2.7) L Current Medications Medications (Trade) Dose Ordered Sig/Shraddha Route PRN Reason Start Time Stop Time Status Last Admin Dose Admin Acetaminophen (Tylenol) 650 mg Q4H PRN ORAL fever>100.5 11/02/16 17:00 12/02/16 16:59 Acetaminophen 650 mg 650 mg Q4H PRN GT headache 11/03/16 08:00 12/03/16 07:59 11/14/16 11:15 Colistimethate Sodium 150 mg 150 mg Q12HR@10,22 INH 11/09/16 22:00 11/22/16 23:59 11/15/16 09:23 Dextrose (Dextrose 50%) STAT PRN IV Hypoglycemia 11/02/16 17:00 12/02/16 16:59 Insulin Aspart (NovoLOG) start when feeding started Q6HR SUBQ 11/02/16 18:00 12/02/16 17:59 11/15/16 00:55 Lansoprazole (Prevacid) 30 mg DAILY GT 10/31/16 09:00 11/30/16 08:59 11/15/16 09:25 Levalbuterol HCl (Xopenex) 1.25 mg Q4H PRN HHN Shortness of Breath 11/12/16 13:30 11/17/16 13:29 11/15/16 11:11 Levofloxacin (Levaquin 750mg/ D5W) 150 ml @ 100 mls/hr Q24H IVPB 11/11/16 14:30 11/24/16 23:59 11/14/16 15:06 Linezolid (Zyvox) 300 ml @ 300 mls/hr Q12HR IVPB 11/09/16 21:00 11/22/16 23:59 11/15/16 09:25 Meropenem 1 gm/ Sodium Chloride 110 ml @ 220 mls/hr Q8HR IVPB 11/09/16 22:00 11/16/16 23:59 11/15/16 14:14 Metoclopramide HCl (Reglan) 10 mg THREE TIMES A DAY GT 10/24/16 19:00 11/23/16 18:59 11/15/16 12:43 Micafungin Sodium 100 mg/Sodium Chloride 110 ml @ 110 mls/hr Q24H IVPB 11/10/16 20:00 11/23/16 23:59 11/14/16 20:36 Ondansetron HCl (Zofran) 4 mg Q6H PRN IVP Nausea & Vomiting 11/02/16 17:00 12/02/16 16:59 Polyethylene Glycol (Miralax) 17 gm DAILYPRN PRN GT Constipation 10/25/16 01:00 11/24/16 00:59 11/03/16 00:00 Sodium Chloride 500 ml @ 999 mls/hr PRN PRN IVPB For hypotension 11/09/16 17:15 12/09/16 17:14 11/10/16 22:00 Sodium Chloride 1,000 ml @ 75 mls/hr [id number] IV 11/11/16 01:00 12/11/16 00:59 11/15/16 12:43 NAOMI GEORGE November 15, 2016 15:11
--- NOTE | 2016-11-15 15:54 | General Progress Note ---
Assessment/Plan Assessment/Plan Assessment - Colon polyps/mass seen on CT - patient has declined GI w/u - COPD - respiratory failure - PNA and lung abscess - s/p trach and PEG - dysphagia - Leukocytosis - h/o OB (+) - Anemia - gradual decline - Poor PX Recommendations - transfuse PRN - elevate HOB - abx - GT care / TF - follow labs - level of care discussion - I will return Mon to see pt Subjective Constitutional: Denies: malaise Allergies: Coded Allergies: No Known Allergies (Unverified , 06/17/16) Subjective weak arousable resting tolerating cycled TF Objective Last 24 Hour Vital Signs Date Time Temp Pulse Resp B/P Pulse Ox O2 Delivery O2 Flow Rate FiO2 11/15/16 15:25 110 18 98 Mechanical Ventilator 40 11/15/16 15:24 11 18 40 11/15/16 13:46 90 11/15/16 13:02 125 16 40 11/15/16 12:00 40 11/15/16 11:43 98.0 116 16 98/55 100 Mechanical Ventilator 11/15/16 11:04 108 18 96 Mechanical Ventilator 40 11/15/16 11:02 108 18 40 11/15/16 10:33 40 11/15/16 10:32 105 11/15/16 09:20 107 19 99 Mechanical Ventilator 40 11/15/16 09:10 107 19 95 Mechanical Ventilator 40 11/15/16 09:08 107 19 40 11/15/16 08:00 97.6 107 20 131/79 97 Mechanical Ventilator 40 11/15/16 07:21 117 16 99 Mechanical Ventilator 30 11/15/16 07:11 109 17 96 Mechanical Ventilator 40 11/15/16 07:10 109 17 40 11/15/16 05:20 111 18 40 11/15/16 04:00 98.2 112 20 98/67 97 Mechanical Ventilator 40 11/15/16 04:00 40 11/15/16 03:40 90 11/15/16 03:33 103 18 99 Mechanical Ventilator 30 11/15/16 03:07 103 16 98 Mechanical Ventilator 40 11/15/16 03:05 97 16 40 11/15/16 01:10 101 20 40 11/15/16 00:56 40 11/15/16 00:27 96 11/15/16 00:00 97.5 119 19 94/60 96 Mechanical Ventilator 40 11/14/16 23:28 98 21 99 Mechanical Ventilator 30 11/14/16 23:06 104 16 98 Mechanical Ventilator 40 11/14/16 22:33 106 20 40 11/14/16 20:58 102 20 40 11/14/16 20:48 40 11/14/16 20:43 98.6 116 22 122/73 96 Mechanical Ventilator 40 11/14/16 20:26 110 16 99 Mechanical Ventilator 40 11/14/16 20:16 108 22 100 Mechanical Ventilator 40 11/14/16 20:00 113 11/14/16 19:00 108 22 40 11/14/16 17:05 119 22 40 11/14/16 16:36 99.0 105 18 97/61 100 Mechanical Ventilator 40 11/14/16 16:00 108 11/14/16 16:00 40 Intake and Output 11/14/16 11/15/16 19:00 07:00 Intake Total 2491.25 ml 1435.75 ml Output Total 250 ml 200 ml Balance 2241.25 ml 1235.75 ml Free Water 300 ml 150 ml IV Total 1481.25 ml 1090.75 ml Tube Feeding 650 ml 195 ml Other 60 ml Output Urine Total 250 ml 200 ml # Voids 1 # Bowel Movements 1 Laboratory Tests 11/15/16 04:10: White Blood Count 25.1*H, Red Blood Count 2.93L, Hemoglobin 8.3L, Hematocrit 25.1L, Mean Corpuscular Volume 86, Mean Corpuscular Hemoglobin 28.2, Mean Corpuscular Hemoglobin Concent 32.9, Red Cell Distribution Width 15.7H, Platelet Count 388, Mean Platelet Volume 6.4L, Neutrophils (%) (Auto) , Lymphocytes (%) (Auto) , Monocytes (%) (Auto) , Eosinophils (%) (Auto) , Basophils (%) (Auto) , Differential Total Cells Counted 100, Neutrophils % ( Manual) 92H, Lymphocytes % (Manual) 6L, Monocytes % (Manual) 0L, Eosinophils % ( Manual) 0, Basophils % (Manual) 0, Band Neutrophils 2, Platelet Estimate Adequate, Platelet Morphology Normal, Hypochromasia 1+, Anisocytosis 1+, Sodium Level 143, Potassium Level 4.2, Chloride Level 103, Carbon Dioxide Level 32H, Anion Gap 8, Blood Urea Nitrogen 24H, Creatinine 0.6L, Estimat Glomerular Filtration Rate > 60, Glucose Level 78, Calcium Level 8.3L, Phosphorus Level 2.9 , Magnesium Level 2.3, Total Bilirubin 0.3, Aspartate Amino Transf (AST/SGOT) 40 , Alanine Aminotransferase (ALT/SGPT) 36, Alkaline Phosphatase 354H, Total Protein 5.3L, Albumin 1.5L, Globulin 3.8, Albumin/Globulin Ratio 0.3L Height (Feet): 6 Height (Inches): 2.00 Weight (Pounds): 126 Objective Elderly AA man NCAT (+) trach Coarse BS RRR soft NT abdomen, (+) GT poorly responsive ROSEMARY BURROUGHS November 15, 2016 15:54
[2016-11-15 16:25] VITALS: BP 132/81
[2016-11-15] MEDS ORDERED: Tubing IV Secondary IV ONE ×2 (17:27→19:00)
[2016-11-15] MEDS ORDERED: NS 550ML IV ONE (19:00)
[2016-11-15] MEDS ORDERED: NS 275ml ONE (19:00)
[2016-11-15 20:12] VITALS: BP 118/72
[2016-11-15] MEDS: Micafungin 100 MG in NS 110 ML IVPB SCH (21:01)
[2016-11-15] MEDS: Acetaminophen 650mg/20.3ml GT PRN (22:26)
[2016-11-16] VITALS (7 sets, daily range): BP systolic 83–136; BP diastolic 53–76
[2016-11-16] MEDS: Levalbuterol Inh UD 1.25mg/0.5ml HHN PRN ×5 (01:33→18:58)
[2016-11-16] MEDS: Meropenem 1 GM in NS 110 ML IVPB SCH ×3 (05:55→22:28)
[2016-11-16] MEDS: NovoLOG Insulin Flexpen SUBQ SCH ×4 (06:00→23:51)
[2016-11-16 06:23] LABS: MEAN CORPUSCULAR HEMOGLOBIN 26.9 PG (27.0-31.0); MEAN CORPUSCULAR HGB CONC 30.8 G/DL (32.0-36.0); MEAN CORPUSCULAR VOLUME 87 FL (80-99); MEAN PLATELET VOLUME 6.3 FL (6.5-10.1); PLATELET COUNT 392 K/UL (150-450); RED BLOOD COUNT 3.09 M/UL (4.70-6.10); RED CELL DISTRIBUTION WIDTH 16.8 % (11.6-14.8)
[2016-11-16 06:35] LABS: ALANINE AMINOTRANSFERASE 40 U/L (3-41); ALBUMIN/GLOBULIN RATIO 0.3 (1.0-2.7); ANION GAP 7 (5-15); ASPARTATE AMINO TRANSFERASE 33 U/L (5-40); CALCIUM 8.2 mg/dL (8.6-10.2); CARBON DIOXIDE 32 mEQ/L (20-30); CHLORIDE 103 mEQ/L (98-107); CREATININE 0.5 mg/dL (0.7-1.2); GLOMERULAR FILTRATION RATE > 60 mL/min (>60); HEMOLYSIS 3; MAGNESIUM 2.2 mg/dL (1.7-2.5); PHOSPHORUS 3.2 mg/dL (2.5-4.8); POTASSIUM 4.6 mEQ/L (3.4-4.9); SODIUM 142 mEQ/L (135-145); TOTAL PROTEIN 5.4 g/dL (6.6-8.7)
[2016-11-16 06:42] LABS: WHITE BLOOD COUNT 23.8 K/UL (4.8-10.8)
[2016-11-16 10:18] LABS: BAND NEUTROPHILS % (MANUAL) 0 % (0-8); BASOPHILS % (MANUAL) 0 % (0-2); EOSINOPHILS % (MANUAL) 0 % (0-3); LYMPHOCYTES % (MANUAL) 7 % (20-45); NEUTROPHILS % (MANUAL) 89 % (45-75); PLATELET ESTIMATE ADEQUATE; TOTAL CELLS COUNTED 100
[2016-11-16 10:19] LABS: ANISOCYTOSIS 1+; HYPOCHROMASIA 3+; PLATELET MORPHOLOGY NORMAL
[2016-11-16] MEDS: Colistin for inhalation INH SCH ×2 (11:50→23:52)
--- NOTE | 2016-11-16 12:41 | Pulmonology Progress Note ---
Assessment/Plan Problems: (1) Lung abscess (2) Severe sepsis (3) Abdominal distention (4) Respiratory failure (5) COPD exacerbation (6) Emphysema of lung (7) Colonic mass Assessment/Plan - cont Merrem, Colistin INH , Zyvox and Mycamine d# 7 / and Levaquin d# / wbc decreasing slowly continue current vent setting, titrate fio2 to sat of 92% not tolerating weaning CT chest reviewed, extensive infiltrate ( 11/14) Subjective ROS Limited/Unobtainable: No Constitutional: Reports: no symptoms HEENT: Repors: no symptoms Cardiovascular: Reports: no symptoms Allergies: Coded Allergies: No Known Allergies (Unverified , 06/17/16) Objective Last 24 Hour Vital Signs Date Time Temp Pulse Resp B/P Pulse Ox O2 Delivery O2 Flow Rate FiO2 11/16/16 12:00 40 11/16/16 11:22 96 16 100 Mechanical Ventilator 30 11/16/16 11:12 96 16 100 Mechanical Ventilator 40 11/16/16 11:08 93 16 40 11/16/16 10:29 40 11/16/16 10:12 95 16 100 Mechanical Ventilator 40 11/16/16 10:02 93 16 98 Mechanical Ventilator 40 11/16/16 09:22 99 16 40 11/16/16 08:00 83 11/16/16 08:00 97.0 98 16 134/60 99 Trach Collar 11/16/16 07:32 110 16 100 Mechanical Ventilator 30 11/16/16 07:22 114 16 100 Mechanical Ventilator 40 11/16/16 07:22 114 16 40 11/16/16 05:30 76 16 40 11/16/16 04:00 98.1 74 18 122/75 96 Trach Collar 11/16/16 04:00 40 11/16/16 03:46 74 11/16/16 02:47 86 17 40 11/16/16 01:34 81 16 100 Mechanical Ventilator 30 11/16/16 01:33 84 17 95 Mechanical Ventilator 40 11/16/16 00:47 94 16 40 11/16/16 00:00 100 11/16/16 00:00 97.9 94 18 113/76 99 Trach Collar 11/16/16 00:00 40 11/15/16 22:41 95 19 40 11/15/16 21:28 112 16 98 Mechanical Ventilator 40 11/15/16 21:28 117 16 97 Mechanical Ventilator 40 11/15/16 21:22 100 19 40 11/15/16 20:12 100.0 100 20 118/72 100 Mechanical Ventilator 11/15/16 20:00 108 11/15/16 20:00 40 11/15/16 19:10 110 23 97 Mechanical Ventilator 40 11/15/16 19:10 111 23 100 Mechanical Ventilator 30 11/15/16 19:08 110 21 40 11/15/16 17:17 105 11/15/16 17:06 110 17 40 11/15/16 16:25 97.9 106 16 132/81 99 Mechanical Ventilator 11/15/16 16:00 40 11/15/16 15:35 107 16 100 Mechanical Ventilator 30 11/15/16 15:25 110 18 98 Mechanical Ventilator 40 11/15/16 15:24 11 18 40 11/15/16 13:46 90 11/15/16 13:02 125 16 40 Intake and Output 11/15/16 11/16/16 18:59 06:59 Intake Total 2312 ml 2095 ml Output Total 100 ml 400 ml Balance 2212 ml 1695 ml Intake Oral 0 ml 50 ml Free Water 200 ml 150 ml IV Total 1527 ml 1635 ml Tube Feeding 585 ml 260 ml Output Urine Total 100 ml 400 ml # Voids 2 # Bowel Movements 5 1 Objective Status: awake HEENT: atraumatic, normocephalic Lungs: clear, decreased breath sounds Heart: HR/BP stable Abdomen: soft, non-tender Extremities: no C/C/E, edema Laboratory Tests 11/16/16 05:19: White Blood Count 23.8*H, Red Blood Count 3.09L, Hemoglobin 8.3L, Hematocrit 27.0L, Mean Corpuscular Volume 87, Mean Corpuscular Hemoglobin 26.9L, Mean Corpuscular Hemoglobin Concent 30.8L, Red Cell Distribution Width 16.8H, Platelet Count 392, Mean Platelet Volume 6.3L, Neutrophils (%) (Auto) , Lymphocytes (%) (Auto) , Monocytes (%) (Auto) , Eosinophils (%) (Auto) , Basophils (%) (Auto) , Differential Total Cells Counted 100, Neutrophils % ( Manual) 89H, Lymphocytes % (Manual) 7L, Monocytes % (Manual) 4, Eosinophils % ( Manual) 0, Basophils % (Manual) 0, Band Neutrophils 0, Platelet Estimate Adequate, Platelet Morphology Normal, Hypochromasia 3+, Anisocytosis 1+, Sodium Level 142, Potassium Level 4.6, Chloride Level 103, Carbon Dioxide Level 32H, Anion Gap 7, Blood Urea Nitrogen 20, Creatinine 0.5L, Estimat Glomerular Filtration Rate > 60, Glucose Level 105, Calcium Level 8.2L, Phosphorus Level 3.2, Magnesium Level 2.2, Total Bilirubin 0.3, Aspartate Amino Transf (AST/SGOT ) 33, Alanine Aminotransferase (ALT/SGPT) 40, Alkaline Phosphatase 385H, Total Protein 5.4L, Albumin 1.4L, Globulin 4.0, Albumin/Globulin Ratio 0.3L Current Medications Medications (Trade) Dose Ordered Sig/Shraddha Route PRN Reason Start Time Stop Time Status Last Admin Dose Admin Acetaminophen (Tylenol) 650 mg Q4H PRN ORAL fever>100.5 11/02/16 17:00 12/02/16 16:59 Acetaminophen 650 mg 650 mg Q4H PRN GT headache 11/03/16 08:00 12/03/16 07:59 11/15/16 22:26 Colistimethate Sodium 150 mg 150 mg Q12HR@10,22 INH 11/09/16 22:00 11/22/16 23:59 11/16/16 11:50 Dextrose (Dextrose 50%) STAT PRN IV Hypoglycemia 11/02/16 17:00 12/02/16 16:59 Insulin Aspart (NovoLOG) start when feeding started Q6HR SUBQ 11/02/16 18:00 12/02/16 17:59 11/16/16 12:14 Lansoprazole (Prevacid) 30 mg DAILY GT 10/31/16 09:00 11/30/16 08:59 11/16/16 08:44 Levalbuterol HCl 1.25 mg 1.25 mg Q4H PRN HHN Shortness of Breath 11/12/16 13:30 11/17/16 13:29 11/16/16 11:12 Levofloxacin (Levaquin 750mg/ D5W) 150 ml @ 100 mls/hr Q24H IVPB 11/11/16 14:30 11/24/16 23:59 11/15/16 15:13 Linezolid (Zyvox) 300 ml @ 300 mls/hr Q12HR IVPB 11/09/16 21:00 11/22/16 23:59 11/16/16 08:45 Meropenem/Sodium Chloride (Merrem/Sodium Chloride) 110 ml @ 220 mls/hr Q8HR IVPB 11/15/16 22:00 11/22/16 21:59 11/16/16 05:55 Metoclopramide HCl (Reglan) 10 mg THREE TIMES A DAY GT 10/24/16 19:00 11/23/16 18:59 11/16/16 08:45 Micafungin Sodium 100 mg/Sodium Chloride 110 ml @ 110 mls/hr Q24H IVPB 11/10/16 20:00 11/23/16 23:59 11/15/16 21:01 Ondansetron HCl (Zofran) 4 mg Q6H PRN IVP Nausea & Vomiting 11/02/16 17:00 12/02/16 16:59 Polyethylene Glycol (Miralax) 17 gm DAILYPRN PRN GT Constipation 10/25/16 01:00 11/24/16 00:59 11/03/16 00:00 Sodium Chloride 500 ml @ 999 mls/hr PRN PRN IVPB For hypotension 11/09/16 17:15 12/09/16 17:14 11/10/16 22:00 Sodium Chloride 1,000 ml @ 75 mls/hr [id number] IV 11/11/16 01:00 12/11/16 00:59 11/16/16 01:26 REN WRIGHT November 16, 2016 12:41
[2016-11-16] MEDS ORDERED: NS 275ml ONE (15:59)
[2016-11-16] MEDS ORDERED: Tubing IV Secondary IV ONE (15:59)
--- NOTE | 2016-11-16 16:43 | Internal Med Progress Note ---
Subjective Date of Service: November 16, 2016 Physician Name Verdin,Tadeo Attending Physician Steve Rader MD Current Medications Medications (Trade) Dose Ordered Sig/Shraddha Route PRN Reason Start Time Stop Time Status Last Admin Dose Admin Acetaminophen (Tylenol) 650 mg Q4H PRN ORAL fever>100.5 11/02/16 17:00 12/02/16 16:59 Acetaminophen 650 mg 650 mg Q4H PRN GT headache 11/03/16 08:00 12/03/16 07:59 11/15/16 22:26 Colistimethate Sodium 150 mg 150 mg Q12HR@10,22 INH 11/09/16 22:00 11/22/16 23:59 11/16/16 11:50 Dextrose (Dextrose 50%) STAT PRN IV Hypoglycemia 11/02/16 17:00 12/02/16 16:59 Insulin Aspart (NovoLOG) start when feeding started Q6HR SUBQ 11/02/16 18:00 12/02/16 17:59 11/16/16 12:14 Lansoprazole (Prevacid) 30 mg DAILY GT 10/31/16 09:00 11/30/16 08:59 11/16/16 08:44 Levalbuterol HCl 1.25 mg 1.25 mg Q4H PRN HHN Shortness of Breath 11/12/16 13:30 11/17/16 13:29 11/16/16 15:10 Levofloxacin (Levaquin 750mg/ D5W) 150 ml @ 100 mls/hr Q24H IVPB 11/11/16 14:30 11/24/16 23:59 11/16/16 15:14 Linezolid (Zyvox) 300 ml @ 300 mls/hr Q12HR IVPB 11/09/16 21:00 11/22/16 23:59 11/16/16 08:45 Meropenem/Sodium Chloride (Merrem/Sodium Chloride) 110 ml @ 220 mls/hr Q8HR IVPB 11/15/16 22:00 11/22/16 21:59 11/16/16 13:59 Metoclopramide HCl (Reglan) 10 mg THREE TIMES A DAY GT 10/24/16 19:00 11/23/16 18:59 11/16/16 13:40 Micafungin Sodium 100 mg/Sodium Chloride 110 ml @ 110 mls/hr Q24H IVPB 11/10/16 20:00 11/23/16 23:59 11/15/16 21:01 Ondansetron HCl (Zofran) 4 mg Q6H PRN IVP Nausea & Vomiting 11/02/16 17:00 12/02/16 16:59 Polyethylene Glycol (Miralax) 17 gm DAILYPRN PRN GT Constipation 10/25/16 01:00 11/24/16 00:59 11/03/16 00:00 Sodium Chloride 500 ml @ 999 mls/hr PRN PRN IVPB For hypotension 11/09/16 17:15 12/09/16 17:14 11/10/16 22:00 Sodium Chloride 1,000 ml @ 75 mls/hr [id number] IV 11/11/16 01:00 12/11/16 00:59 11/16/16 13:59 Allergies: Coded Allergies: No Known Allergies (Unverified , 06/17/16) ROS Limited/Unobtainable: Yes Subjective 66 YO M admitted with respiratory failure. JORDAN. Trach collar. Cover for Int Med-Dr Rader. Objective Last Vital Signs Date Time Temp Pulse Resp B/P Pulse Ox O2 Delivery O2 Flow Rate FiO2 11/16/16 16:00 40 11/16/16 15:58 97.3 111 22 116/61 100 Trach Collar 11/12/16 16:00 2.0 Laboratory Tests Test 11/16/16 05:19 White Blood Count 23.8 K/UL (4.8-10.8) *H Red Blood Count 3.09 M/UL (4.70-6.10) L Hemoglobin 8.3 G/DL (14.2-18.0) L Hematocrit 27.0 % (42.0-52.0) L Mean Corpuscular Volume 87 FL (80-99) Mean Corpuscular Hemoglobin 26.9 PG (27.0-31.0) L Mean Corpuscular Hemoglobin Concent 30.8 G/DL (32.0-36.0) L Red Cell Distribution Width 16.8 % (11.6-14.8) H Platelet Count 392 K/UL (150-450) Mean Platelet Volume 6.3 FL (6.5-10.1) L Neutrophils (%) (Auto) % (45.0-75.0) Lymphocytes (%) (Auto) % (20.0-45.0) Monocytes (%) (Auto) % (1.0-10.0) Eosinophils (%) (Auto) % (0.0-3.0) Basophils (%) (Auto) % (0.0-2.0) Differential Total Cells Counted 100 Neutrophils % (Manual) 89 % (45-75) H Lymphocytes % (Manual) 7 % (20-45) L Monocytes % (Manual) 4 % (1-10) Eosinophils % (Manual) 0 % (0-3) Basophils % (Manual) 0 % (0-2) Band Neutrophils 0 % (0-8) Platelet Estimate Adequate Platelet Morphology Normal Hypochromasia 3+ Anisocytosis 1+ Sodium Level 142 mEQ/L (135-145) Potassium Level 4.6 mEQ/L (3.4-4.9) Chloride Level 103 mEQ/L (98-107) Carbon Dioxide Level 32 mEQ/L (20-30) H Anion Gap 7 (5-15) Blood Urea Nitrogen 20 mg/dL (7-23) Creatinine 0.5 mg/dL (0.7-1.2) L Estimat Glomerular Filtration Rate > 60 mL/min (>60) Glucose Level 105 mg/dL (74-106) Calcium Level 8.2 mg/dL (8.6-10.2) L Phosphorus Level 3.2 mg/dL (2.5-4.8) Magnesium Level 2.2 mg/dL (1.7-2.5) Total Bilirubin 0.3 mg/dL (0.0-1.2) Aspartate Amino Transf (AST/SGOT) 33 U/L (5-40) Alanine Aminotransferase (ALT/SGPT) 40 U/L (3-41) Alkaline Phosphatase 385 U/L (40-129) H Total Protein 5.4 g/dL (6.6-8.7) L Albumin 1.4 g/dL (3.5-5.2) L Globulin 4.0 g/dL Albumin/Globulin Ratio 0.3 (1.0-2.7) L Intake and Output 11/15/16 11/16/16 19:00 07:00 Intake Total 2160 ml 1880 ml Output Total 100 ml 400 ml Balance 2060 ml 1480 ml Intake Oral 0 ml 50 ml Free Water 350 ml IV Total 1160 ml 1635 ml Tube Feeding 650 ml 195 ml Output Urine Total 100 ml 400 ml # Voids 2 # Bowel Movements 5 1 Objective General Appearance: moderate distress, thin EENT: PERRL/EOMI, normal ENT inspection Neck: non-tender, normal alignment, supple Cardiovascular: normal peripheral pulses, normal rate, regular rhythm, no gallop/murmur, no JVD Respiratory/Chest: Trach collar; respiratory distress, crackles/rales, rhonchi - bilaterally, expiratory wheezing Abdomen: non tender, soft, no organomegaly, no mass, decreased bowel sounds Extremities: normal range of motion Skin: normal pigmentation, warm/dry Assessment/Plan Problem List: (1) Lung nodule (2) DVT (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 (3) Acute respiratory failure Assessment & Plan: S/P tracheostomy 10/03/16. Trach collar (4) COPD exacerbation Assessment & Plan: Continue duoneb. Continue vent per pulmonary. (5) Pneumonia Assessment & Plan: MDR Acenitobacter. New RLL consolidation. Continue colistin inh, micafungin, linezolid, levaquin and meropenem per ID (6) Leukocytosis Assessment & Plan: Improving. Await Culture results. Start meropenem, levaquin, micafungin, colistin (inh) and linezolid per ID (7) Dysphagia Assessment & Plan: See GI consult- S/P PEG 10/04/16. (8) Hypoglycemia Assessment & Plan: D50 prn; decrease insulin sliding scale. (9) Dysuria Assessment & Plan: D/C garcia cath. (10) Severe sepsis Assessment & Plan: Blood cultures X2. Cont meropenem, colistin Inh, levaquin, micafungin and linezolid per ID. (11) Hypotension Assessment & Plan: ICU status for pressors, (12) Gastric mass (13) Mass of colon Assessment & Plan: Cecum and colon masses. See GI note. (14) UTI (urinary tract infection) due to Enterococcus Assessment & Plan: VRE. See ID note. (15) Empyema Assessment & Plan: Possible per pulmonary. Cont Micafungin, meropenem, colistin (inh) and linezolid per ID (16) Anemia Assessment & Plan: Worsening. Transfuse 1 unit PRBC Status: not improved Assessment/Plan Await placement @ local [facility] acute care [facility]. TADEO VERDIN November 16, 2016 16:43
--- NOTE | 2016-11-16 19:28 | Infectious Diseases Prog Note ---
Assessment/Plan Assessment/Plan ASSESSMENT: 66 y/o male with: // VAP / RUL lung abscess - SCx: MDR ACB and PSA , repeat Scx: PSA - CT 11/14 :Extensive pneumonia involving both lungs as described above. 5-6 cm cavitary focus suspicious for lung abscess in the right upper lobe. // Probable UTI : UCx yeast and VRE // Leukocytosis - improving ( DVT, probable CA contributing, SP steroids ) // Hypotension SP // Febrile low grade SP // HIV and Hep B/C : neg // Colon mass ro cancer , GI is following CT: Large cecal mass and other polypoid colonic masses, detailed previously , again demonstrated // SP PEG 10/04 // Chronic VDRF SP trach // Severe pulmonary HTN / grade I diastolic dysfunction / mod TR // Pulmonary nodules // Chronic RLE DVT // Tobacco abuse // [facility] resident // Negative MRSA, VRE screens // NKDA // Full Code PLAN: - cont Merrem, Colistin INH , Zyvox and Mycamine d# 8 /14 and Levaquin d# 5 / ( 11/09 SP Vanco d# 6 / 10 and oral Vanco d# 5 ) ( 10/17 SP Ceftazidime d# 14 ) ( 10/13 SP Jairon nebs d# 14 ) ( 10/11 SP Flagyl d# 10 ) ( 10/04 SP oral Vanco d# 3 ) ( 09/24 SP amikacin, invanz d# 5 / 5 ) ( 09/21 SP IV vancomycin d# 2 ) - monitor CBC, temperatures - monitor BMP - monitor CXR - vent support, trach care, aspiration precautions - need for IR to drain the abscess , will defer to Pulm Subjective Allergies: Coded Allergies: No Known Allergies (Unverified , 06/17/16) Subjective low grade fever x1 on vent Objective Vital Signs Last 24 Hour Vital Signs Date Time Temp Pulse Resp B/P Pulse Ox O2 Delivery O2 Flow Rate FiO2 11/16/16 18:57 40 11/16/16 18:52 109 17 97 Mechanical Ventilator 40 11/16/16 18:50 109 17 40 11/16/16 17:09 101 16 40 11/16/16 16:00 40 11/16/16 16:00 113 11/16/16 15:58 97.3 111 22 116/61 100 Trach Collar 11/16/16 15:07 116 16 40 11/16/16 15:00 99 16 100 Mechanical Ventilator 40 11/16/16 13:20 131 16 40 11/16/16 12:00 97.3 87 16 136/76 95 Trach Collar 11/16/16 12:00 40 11/16/16 12:00 103 11/16/16 11:22 96 16 100 Mechanical Ventilator 30 11/16/16 11:12 96 16 100 Mechanical Ventilator 40 11/16/16 11:08 93 16 40 11/16/16 10:29 40 11/16/16 10:12 95 16 100 Mechanical Ventilator 40 11/16/16 10:02 93 16 98 Mechanical Ventilator 40 11/16/16 09:22 99 16 40 11/16/16 08:00 83 11/16/16 08:00 97.0 98 16 134/60 99 Trach Collar 11/16/16 07:32 110 16 100 Mechanical Ventilator 30 11/16/16 07:22 114 16 100 Mechanical Ventilator 40 11/16/16 07:22 114 16 40 11/16/16 05:30 76 16 40 11/16/16 04:00 98.1 74 18 122/75 96 Trach Collar 11/16/16 04:00 40 11/16/16 03:46 74 11/16/16 02:47 86 17 40 11/16/16 01:34 81 16 100 Mechanical Ventilator 30 11/16/16 01:33 84 17 95 Mechanical Ventilator 40 11/16/16 00:47 94 16 40 11/16/16 00:00 100 11/16/16 00:00 97.9 94 18 113/76 99 Trach Collar 11/16/16 00:00 40 11/15/16 22:41 95 19 40 11/15/16 21:28 112 16 98 Mechanical Ventilator 40 11/15/16 21:28 117 16 97 Mechanical Ventilator 40 11/15/16 21:22 100 19 40 11/15/16 20:12 100.0 100 20 118/72 100 Mechanical Ventilator 11/15/16 20:00 108 11/15/16 20:00 40 Height (Feet): 6 Height (Inches): 2.00 Weight (Pounds): 126 General Appearance: no acute distress HEENT: status post trach Respiratory/Chest: decreased breath sounds Cardiovascular: normal rate, regular rhythm Abdomen: normal bowel sounds, soft, non tender, non distended Laboratory Tests Test 11/16/16 05:19 White Blood Count 23.8 K/UL (4.8-10.8) *H Red Blood Count 3.09 M/UL (4.70-6.10) L Hemoglobin 8.3 G/DL (14.2-18.0) L Hematocrit 27.0 % (42.0-52.0) L Mean Corpuscular Volume 87 FL (80-99) Mean Corpuscular Hemoglobin 26.9 PG (27.0-31.0) L Mean Corpuscular Hemoglobin Concent 30.8 G/DL (32.0-36.0) L Red Cell Distribution Width 16.8 % (11.6-14.8) H Platelet Count 392 K/UL (150-450) Mean Platelet Volume 6.3 FL (6.5-10.1) L Neutrophils (%) (Auto) % (45.0-75.0) Lymphocytes (%) (Auto) % (20.0-45.0) Monocytes (%) (Auto) % (1.0-10.0) Eosinophils (%) (Auto) % (0.0-3.0) Basophils (%) (Auto) % (0.0-2.0) Differential Total Cells Counted 100 Neutrophils % (Manual) 89 % (45-75) H Lymphocytes % (Manual) 7 % (20-45) L Monocytes % (Manual) 4 % (1-10) Eosinophils % (Manual) 0 % (0-3) Basophils % (Manual) 0 % (0-2) Band Neutrophils 0 % (0-8) Platelet Estimate Adequate Platelet Morphology Normal Hypochromasia 3+ Anisocytosis 1+ Sodium Level 142 mEQ/L (135-145) Potassium Level 4.6 mEQ/L (3.4-4.9) Chloride Level 103 mEQ/L (98-107) Carbon Dioxide Level 32 mEQ/L (20-30) H Anion Gap 7 (5-15) Blood Urea Nitrogen 20 mg/dL (7-23) Creatinine 0.5 mg/dL (0.7-1.2) L Estimat Glomerular Filtration Rate > 60 mL/min (>60) Glucose Level 105 mg/dL (74-106) Calcium Level 8.2 mg/dL (8.6-10.2) L Phosphorus Level 3.2 mg/dL (2.5-4.8) Magnesium Level 2.2 mg/dL (1.7-2.5) Total Bilirubin 0.3 mg/dL (0.0-1.2) Aspartate Amino Transf (AST/SGOT) 33 U/L (5-40) Alanine Aminotransferase (ALT/SGPT) 40 U/L (3-41) Alkaline Phosphatase 385 U/L (40-129) H Total Protein 5.4 g/dL (6.6-8.7) L Albumin 1.4 g/dL (3.5-5.2) L Globulin 4.0 g/dL Albumin/Globulin Ratio 0.3 (1.0-2.7) L Current Medications Medications (Trade) Dose Ordered Sig/Shraddha Route PRN Reason Start Time Stop Time Status Last Admin Dose Admin Acetaminophen (Tylenol) 650 mg Q4H PRN ORAL fever>100.5 11/02/16 17:00 12/02/16 16:59 Acetaminophen 650 mg 650 mg Q4H PRN GT headache 11/03/16 08:00 12/03/16 07:59 11/15/16 22:26 Colistimethate Sodium 150 mg 150 mg Q12HR@10,22 INH 11/09/16 22:00 11/22/16 23:59 11/16/16 11:50 Dextrose (Dextrose 50%) STAT PRN IV Hypoglycemia 11/02/16 17:00 12/02/16 16:59 Insulin Aspart (NovoLOG) start when feeding started Q6HR SUBQ 11/02/16 18:00 12/02/16 17:59 11/16/16 18:08 Lansoprazole (Prevacid) 30 mg DAILY GT 10/31/16 09:00 11/30/16 08:59 11/16/16 08:44 Levalbuterol HCl 1.25 mg 1.25 mg Q4H PRN HHN Shortness of Breath 11/12/16 13:30 11/17/16 13:29 11/16/16 18:58 Levofloxacin (Levaquin 750mg/ D5W) 150 ml @ 100 mls/hr Q24H IVPB 11/11/16 14:30 11/24/16 23:59 11/16/16 15:14 Linezolid (Zyvox) 300 ml @ 300 mls/hr Q12HR IVPB 11/09/16 21:00 11/22/16 23:59 11/16/16 08:45 Meropenem/Sodium Chloride (Merrem/Sodium Chloride) 110 ml @ 220 mls/hr Q8HR IVPB 11/15/16 22:00 11/22/16 21:59 11/16/16 13:59 Metoclopramide HCl (Reglan) 10 mg THREE TIMES A DAY GT 10/24/16 19:00 11/23/16 18:59 11/16/16 18:08 Micafungin Sodium 100 mg/Sodium Chloride 110 ml @ 110 mls/hr Q24H IVPB 11/10/16 20:00 11/23/16 23:59 11/15/16 21:01 Ondansetron HCl (Zofran) 4 mg Q6H PRN IVP Nausea & Vomiting 11/02/16 17:00 12/02/16 16:59 Polyethylene Glycol (Miralax) 17 gm DAILYPRN PRN GT Constipation 10/25/16 01:00 11/24/16 00:59 11/03/16 00:00 Sodium Chloride 500 ml @ 999 mls/hr PRN PRN IVPB For hypotension 11/09/16 17:15 12/09/16 17:14 11/10/16 22:00 Sodium Chloride 1,000 ml @ 75 mls/hr [id number] IV 11/11/16 01:00 12/11/16 00:59 11/16/16 13:59 NAOMI GEORGE November 16, 2016 19:28
[2016-11-16] MEDS: Micafungin 100 MG in NS 110 ML IVPB SCH (20:15)
[2016-11-17 01:00] VITALS: BP 99/58
[2016-11-17] MEDS: Levalbuterol Inh UD 1.25mg/0.5ml HHN PRN ×4 (04:08→20:56)
[2016-11-17 04:27] VITALS: BP 95/60
[2016-11-17] MEDS: NovoLOG Insulin Flexpen SUBQ SCH ×3 (05:47→17:48)
[2016-11-17] MEDS: Meropenem 1 GM in NS 110 ML IVPB SCH ×3 (05:47→22:33)
[2016-11-17] MEDS: Colistin for inhalation INH SCH ×2 (07:37→22:30)
[2016-11-17 08:00] VITALS: BP 122/72
--- NOTE | 2016-11-17 09:15 | Cardiac Electrophysiology PN ---
Assessment/Plan Assessment/Plan 1. Sinus tachycardia due to sepsis now better in 90s 2. Hypotension.Resolved with IV fluid and antibiotics. 3. Severe COPD and pulmonary hypertension 4. Ventilator-dependant respiratory failure, status post tracheostomy. 5. Dysphagia, status post percutaneous endoscopic gastrostomy placement. 6. Sepsis due to MDR ACB and PSA , on broad-spectrum intravenous antibiotics and antifungal per ID. 7. Lung abscess 8. Colonic mass GI eval per Dr Yadira CHAVEZ RN Subjective Subjective Alert on Vent via tracheostomy with PEG. Remained in SR overnight. Objective Last 24 Hour Vital Signs Date Time Temp Pulse Resp B/P Pulse Ox O2 Delivery O2 Flow Rate FiO2 11/17/16 08:46 99 16 40 11/17/16 07:56 107 16 100 Mechanical Ventilator 40 11/17/16 07:37 106 16 100 Mechanical Ventilator 40 11/17/16 07:37 40 11/17/16 07:30 106 16 40 11/17/16 05:23 101 16 40 11/17/16 04:27 98.2 109 18 95/60 100 Mechanical Ventilator 11/17/16 04:10 40 11/17/16 04:10 101 16 100 Mechanical Ventilator 40 11/17/16 04:00 40 11/17/16 03:40 100 11/17/16 03:16 106 16 40 11/17/16 01:12 108 16 40 11/17/16 01:00 98.1 112 16 99/58 100 Mechanical Ventilator 11/17/16 00:00 40 11/16/16 23:52 101 16 100 Mechanical Ventilator 40 11/16/16 23:52 40 11/16/16 23:35 103 11/16/16 23:09 94 16 40 11/16/16 22:26 99 95/58 11/16/16 21:18 97 16 100 Mechanical Ventilator 40 11/16/16 21:17 97 16 40 11/16/16 20:00 98.0 108 20 83/53 100 Mechanical Ventilator 11/16/16 20:00 40 11/16/16 19:35 94 11/16/16 18:57 40 11/16/16 18:52 109 17 97 Mechanical Ventilator 40 11/16/16 18:50 109 17 40 11/16/16 17:09 101 16 40 11/16/16 16:00 40 11/16/16 16:00 113 11/16/16 15:58 97.3 111 22 116/61 100 Trach Collar 11/16/16 15:07 116 16 40 11/16/16 15:00 99 16 100 Mechanical Ventilator 40 11/16/16 13:20 131 16 40 11/16/16 12:00 97.3 87 16 136/76 95 Trach Collar 11/16/16 12:00 40 11/16/16 12:00 103 11/16/16 11:22 96 16 100 Mechanical Ventilator 30 11/16/16 11:12 96 16 100 Mechanical Ventilator 40 11/16/16 11:08 93 16 40 11/16/16 10:29 40 11/16/16 10:12 95 16 100 Mechanical Ventilator 40 11/16/16 10:02 93 16 98 Mechanical Ventilator 40 11/16/16 09:22 99 16 40 Intake and Output 11/16/16 11/17/16 19:00 07:00 Intake Total 2450 ml 1735 ml Output Total 250 ml 400 ml Balance 2200 ml 1335 ml Free Water 450 ml 150 ml IV Total 1350 ml 1455 ml Tube Feeding 650 ml 130 ml Output Urine Total 250 ml 400 ml # Voids 1 # Bowel Movements 1 2 Objective HEAD AND NECK: No jugular venous distention, tracheostomy intact. LUNGS: Coarse rhonchi bilaterally. CARDIOVASCULAR: Tachycardic S1 and S2 with no gallop or murmur. ABDOMEN: Soft. G-tube intact. EXTREMITIES: No pitting edema. OSWALD HILLS November 17, 2016 09:15
[2016-11-17] MEDS ORDERED: Sterile Water For Irrig 2000ml IRRIG ONE (09:26)
[2016-11-17] MEDS ORDERED: NS 275ml ONE (09:26)
[2016-11-17] MEDS: Acetaminophen 650mg/20.3ml GT PRN (09:53)
[2016-11-17 10:14] LABS: MEAN CORPUSCULAR HEMOGLOBIN 27.6 PG (27.0-31.0); MEAN CORPUSCULAR HGB CONC 31.3 G/DL (32.0-36.0); MEAN CORPUSCULAR VOLUME 88 FL (80-99); MEAN PLATELET VOLUME 6.4 FL (6.5-10.1); PLATELET COUNT 333 K/UL (150-450); RED BLOOD COUNT 2.98 M/UL (4.70-6.10); RED CELL DISTRIBUTION WIDTH 18.6 % (11.6-14.8); WHITE BLOOD COUNT 15.3 K/UL (4.8-10.8)
[2016-11-17 10:32] LABS: ALANINE AMINOTRANSFERASE 27 U/L (3-41); ALBUMIN/GLOBULIN RATIO 0.3 (1.0-2.7); ANION GAP 7 (5-15); ASPARTATE AMINO TRANSFERASE 25 U/L (5-40); CARBON DIOXIDE 33 mEQ/L (20-30); CHLORIDE 104 mEQ/L (98-107); CREATININE 0.5 mg/dL (0.7-1.2); GLOMERULAR FILTRATION RATE > 60 mL/min (>60); HEMOLYSIS 2; PHOSPHORUS 2.9 mg/dL (2.5-4.8); POTASSIUM 4.8 mEQ/L (3.4-4.9); SODIUM 144 mEQ/L (135-145); TOTAL PROTEIN 5.1 g/dL (6.6-8.7)
[2016-11-17 10:40] LABS: INR 1.2 (0.9-1.1); PROTHROMBIN TIME 12.7 SEC (9.30-11.50)
[2016-11-17 10:51] LABS: ANISOCYTOSIS 2+; BAND NEUTROPHILS % (MANUAL) 0 % (0-8); BASOPHILS % (MANUAL) 0 % (0-2); EOSINOPHILS % (MANUAL) 0 % (0-3); HYPOCHROMASIA 2+; LYMPHOCYTES % (MANUAL) 1 % (20-45); NEUTROPHILS % (MANUAL) 93 % (45-75); PLATELET ESTIMATE ADEQUATE; PLATELET MORPHOLOGY NORMAL; TOTAL CELLS COUNTED 100
[2016-11-17 12:00] VITALS: BP 94/59
--- NOTE | 2016-11-17 12:22 | Pulmonology Progress Note ---
Assessment/Plan Problems: (1) Lung abscess (2) Severe sepsis (3) Abdominal distention (4) Respiratory failure (5) COPD exacerbation (6) Emphysema of lung (7) Colonic mass Assessment/Plan cont Merrem, Colistin INH , Zyvox and Mycamine d# 8 / and Levaquin d# wbc decreasing slowly continue current vent setting, titrate fio2 to sat of 92% not tolerating weaning CT chest reviewed, extensive infiltrate ( 11/14) Subjective ROS Limited/Unobtainable: No Allergies: Coded Allergies: No Known Allergies (Unverified , 06/17/16) Objective Last 24 Hour Vital Signs Date Time Temp Pulse Resp B/P Pulse Ox O2 Delivery O2 Flow Rate FiO2 11/17/16 12:00 40 11/17/16 10:38 101 16 40 11/17/16 08:46 99 16 40 11/17/16 08:00 97.2 98 16 122/72 100 Mechanical Ventilator 40 11/17/16 08:00 94 11/17/16 08:00 40 11/17/16 07:56 107 16 100 Mechanical Ventilator 40 11/17/16 07:37 106 16 100 Mechanical Ventilator 40 11/17/16 07:37 40 11/17/16 07:30 106 16 40 11/17/16 05:23 101 16 40 11/17/16 04:27 98.2 109 18 95/60 100 Mechanical Ventilator 11/17/16 04:10 40 11/17/16 04:10 101 16 100 Mechanical Ventilator 40 11/17/16 04:00 40 11/17/16 03:40 100 11/17/16 03:16 106 16 40 11/17/16 01:12 108 16 40 11/17/16 01:00 98.1 112 16 99/58 100 Mechanical Ventilator 11/17/16 00:00 40 11/16/16 23:52 101 16 100 Mechanical Ventilator 40 11/16/16 23:52 40 11/16/16 23:35 103 11/16/16 23:09 94 16 40 11/16/16 22:26 99 95/58 11/16/16 21:18 97 16 100 Mechanical Ventilator 40 11/16/16 21:17 97 16 40 11/16/16 20:00 98.0 108 20 83/53 100 Mechanical Ventilator 11/16/16 20:00 40 11/16/16 19:35 94 11/16/16 18:57 40 11/16/16 18:52 109 17 97 Mechanical Ventilator 40 11/16/16 18:50 109 17 40 11/16/16 17:09 101 16 40 11/16/16 16:00 40 11/16/16 16:00 113 11/16/16 15:58 97.3 111 22 116/61 100 Trach Collar 11/16/16 15:07 116 16 40 11/16/16 15:00 99 16 100 Mechanical Ventilator 40 11/16/16 13:20 131 16 40 Intake and Output 11/16/16 11/17/16 19:00 07:00 Intake Total 2450 ml 1735 ml Output Total 250 ml 400 ml Balance 2200 ml 1335 ml Free Water 450 ml 150 ml IV Total 1350 ml 1455 ml Tube Feeding 650 ml 130 ml Output Urine Total 250 ml 400 ml # Voids 1 # Bowel Movements 1 2 Objective Status: awake HEENT: atraumatic, normocephalic Lungs: clear, decreased breath sounds Heart: HR/BP stable Abdomen: soft, non-tender Extremities: no C/C/E, edema Laboratory Tests 11/17/16 09:42: White Blood Count 15.3H, Red Blood Count 2.98L, Hemoglobin 8.2L, Hematocrit 26.3L, Mean Corpuscular Volume 88, Mean Corpuscular Hemoglobin 27.6, Mean Corpuscular Hemoglobin Concent 31.3L, Red Cell Distribution Width 18.6H, Platelet Count 333, Mean Platelet Volume 6.4L, Neutrophils (%) (Auto) , Lymphocytes (%) (Auto) , Monocytes (%) (Auto) , Eosinophils (%) (Auto) , Basophils (%) (Auto) , Differential Total Cells Counted 100, Neutrophils % ( Manual) 93H, Lymphocytes % (Manual) 1L, Monocytes % (Manual) 6, Eosinophils % ( Manual) 0, Basophils % (Manual) 0, Band Neutrophils 0, Platelet Estimate Adequate, Platelet Morphology Normal, Hypochromasia 2+, Anisocytosis 2+, Prothrombin Time 12.7H, Prothromb Time International Ratio 1.2H, Activated Partial Thromboplast Time 31, Sodium Level 144, Potassium Level 4.8, Chloride Level 104, Carbon Dioxide Level 33H, Anion Gap 7, Blood Urea Nitrogen 17, Creatinine 0.5L, Estimat Glomerular Filtration Rate > 60, Glucose Level 80, Calcium Level 8.0L, Phosphorus Level 2.9, Magnesium Level 2.0, Total Bilirubin 0.3, Aspartate Amino Transf (AST/SGOT) 25, Alanine Aminotransferase (ALT/SGPT) 27, Alkaline Phosphatase 268H, Total Protein 5.1L, Albumin 1.3L, Globulin 3.8, Albumin/Globulin Ratio 0.3L Current Medications Medications (Trade) Dose Ordered Sig/Shraddha Route PRN Reason Start Time Stop Time Status Last Admin Dose Admin Acetaminophen (Tylenol) 650 mg Q4H PRN ORAL fever>100.5 11/02/16 17:00 12/02/16 16:59 Acetaminophen 650 mg 650 mg Q4H PRN GT headache 11/03/16 08:00 12/03/16 07:59 11/17/16 09:53 Colistimethate Sodium 150 mg 150 mg Q12HR@10,22 INH 11/09/16 22:00 11/22/16 23:59 11/17/16 07:37 Dextrose (Dextrose 50%) STAT PRN IV Hypoglycemia 11/02/16 17:00 12/02/16 16:59 Insulin Aspart (NovoLOG) start when feeding started Q6HR SUBQ 11/02/16 18:00 12/02/16 17:59 11/16/16 18:08 Lansoprazole (Prevacid) 30 mg DAILY GT 10/31/16 09:00 11/30/16 08:59 11/17/16 09:13 Levalbuterol HCl 1.25 mg 1.25 mg Q4H PRN HHN Shortness of Breath 11/12/16 13:30 11/17/16 13:29 11/17/16 04:08 Levofloxacin (Levaquin 750mg/ D5W) 150 ml @ 100 mls/hr Q24H IVPB 11/11/16 14:30 11/24/16 23:59 11/16/16 15:14 Linezolid (Zyvox) 300 ml @ 300 mls/hr Q12HR IVPB 11/09/16 21:00 11/22/16 23:59 11/17/16 09:13 Meropenem/Sodium Chloride (Merrem/Sodium Chloride) 110 ml @ 220 mls/hr Q8HR IVPB 11/15/16 22:00 11/22/16 21:59 11/17/16 05:47 Metoclopramide HCl (Reglan) 10 mg THREE TIMES A DAY GT 10/24/16 19:00 11/23/16 18:59 11/17/16 09:13 Micafungin Sodium 100 mg/Sodium Chloride 110 ml @ 110 mls/hr Q24H IVPB 11/10/16 20:00 11/23/16 23:59 11/16/16 20:15 Ondansetron HCl (Zofran) 4 mg Q6H PRN IVP Nausea & Vomiting 11/02/16 17:00 12/02/16 16:59 Polyethylene Glycol (Miralax) 17 gm DAILYPRN PRN GT Constipation 10/25/16 01:00 11/24/16 00:59 11/03/16 00:00 Sodium Chloride 500 ml @ 999 mls/hr PRN PRN IVPB For hypotension 11/09/16 17:15 12/09/16 17:14 11/10/16 22:00 Sodium Chloride 1,000 ml @ 75 mls/hr [id number] IV 11/11/16 01:00 12/11/16 00:59 11/17/16 09:53 REN WRIGHT November 17, 2016 12:22
--- NOTE | 2016-11-17 13:41 | Internal Med Progress Note ---
Subjective Date of Service: November 17, 2016 Physician Name Tadeo Verdin Attending Physician Steve Rader MD Current Medications Medications (Trade) Dose Ordered Sig/Shraddha Route PRN Reason Start Time Stop Time Status Last Admin Dose Admin Acetaminophen (Tylenol) 650 mg Q4H PRN ORAL fever>100.5 11/02/16 17:00 12/02/16 16:59 Acetaminophen 650 mg 650 mg Q4H PRN GT headache 11/03/16 08:00 12/03/16 07:59 11/17/16 09:53 Colistimethate Sodium 150 mg 150 mg Q12HR@10,22 INH 11/09/16 22:00 11/22/16 23:59 11/17/16 07:37 Dextrose (Dextrose 50%) STAT PRN IV Hypoglycemia 11/02/16 17:00 12/02/16 16:59 Insulin Aspart (NovoLOG) start when feeding started Q6HR SUBQ 11/02/16 18:00 12/02/16 17:59 11/17/16 12:24 Lansoprazole (Prevacid) 30 mg DAILY GT 10/31/16 09:00 11/30/16 08:59 11/17/16 09:13 Levofloxacin 150 ml @ 100 mls/hr Q24H IVPB 11/11/16 14:30 11/24/16 23:59 11/16/16 15:14 Linezolid (Zyvox) 300 ml @ 300 mls/hr Q12HR IVPB 11/09/16 21:00 11/22/16 23:59 11/17/16 09:13 Meropenem/Sodium Chloride (Merrem/Sodium Chloride) 110 ml @ 220 mls/hr Q8HR IVPB 11/15/16 22:00 11/22/16 21:59 11/17/16 13:12 Metoclopramide HCl (Reglan) 10 mg THREE TIMES A DAY GT 10/24/16 19:00 11/23/16 18:59 11/17/16 12:25 Micafungin Sodium 100 mg/Sodium Chloride 110 ml @ 110 mls/hr Q24H IVPB 11/10/16 20:00 11/23/16 23:59 11/16/16 20:15 Ondansetron HCl (Zofran) 4 mg Q6H PRN IVP Nausea & Vomiting 11/02/16 17:00 12/02/16 16:59 Polyethylene Glycol (Miralax) 17 gm DAILYPRN PRN GT Constipation 10/25/16 01:00 11/24/16 00:59 11/03/16 00:00 Sodium Chloride 500 ml @ 999 mls/hr PRN PRN IVPB For hypotension 11/09/16 17:15 12/09/16 17:14 11/10/16 22:00 Sodium Chloride 1,000 ml @ 75 mls/hr [id number] IV 11/11/16 01:00 12/11/16 00:59 11/17/16 09:53 Allergies: Coded Allergies: No Known Allergies (Unverified , 06/17/16) ROS Limited/Unobtainable: Yes Subjective 66 YO M admitted with respiratory failure. JORDAN. Back on [facility] vent. Cover for Int Med-Dr Rader. Objective Last Vital Signs Date Time Temp Pulse Resp B/P Pulse Ox O2 Delivery O2 Flow Rate FiO2 11/17/16 12:54 82 16 100 Mechanical Ventilator 30 11/17/16 08:00 97.2 122/72 11/12/16 16:00 2.0 Laboratory Tests Test 11/17/16 09:42 White Blood Count 15.3 K/UL (4.8-10.8) H Red Blood Count 2.98 M/UL (4.70-6.10) L Hemoglobin 8.2 G/DL (14.2-18.0) L Hematocrit 26.3 % (42.0-52.0) L Mean Corpuscular Volume 88 FL (80-99) Mean Corpuscular Hemoglobin 27.6 PG (27.0-31.0) Mean Corpuscular Hemoglobin Concent 31.3 G/DL (32.0-36.0) L Red Cell Distribution Width 18.6 % (11.6-14.8) H Platelet Count 333 K/UL (150-450) Mean Platelet Volume 6.4 FL (6.5-10.1) L Neutrophils (%) (Auto) % (45.0-75.0) Lymphocytes (%) (Auto) % (20.0-45.0) Monocytes (%) (Auto) % (1.0-10.0) Eosinophils (%) (Auto) % (0.0-3.0) Basophils (%) (Auto) % (0.0-2.0) Differential Total Cells Counted 100 Neutrophils % (Manual) 93 % (45-75) H Lymphocytes % (Manual) 1 % (20-45) L Monocytes % (Manual) 6 % (1-10) Eosinophils % (Manual) 0 % (0-3) Basophils % (Manual) 0 % (0-2) Band Neutrophils 0 % (0-8) Platelet Estimate Adequate Platelet Morphology Normal Hypochromasia 2+ Anisocytosis 2+ Prothrombin Time 12.7 SEC (9.30-11.50) H Prothromb Time International Ratio 1.2 (0.9-1.1) H Activated Partial Thromboplast Time 31 SEC (23-33) Sodium Level 144 mEQ/L (135-145) Potassium Level 4.8 mEQ/L (3.4-4.9) Chloride Level 104 mEQ/L (98-107) Carbon Dioxide Level 33 mEQ/L (20-30) H Anion Gap 7 (5-15) Blood Urea Nitrogen 17 mg/dL (7-23) Creatinine 0.5 mg/dL (0.7-1.2) L Estimat Glomerular Filtration Rate > 60 mL/min (>60) Glucose Level 80 mg/dL (74-106) Calcium Level 8.0 mg/dL (8.6-10.2) L Phosphorus Level 2.9 mg/dL (2.5-4.8) Magnesium Level 2.0 mg/dL (1.7-2.5) Total Bilirubin 0.3 mg/dL (0.0-1.2) Aspartate Amino Transf (AST/SGOT) 25 U/L (5-40) Alanine Aminotransferase (ALT/SGPT) 27 U/L (3-41) Alkaline Phosphatase 268 U/L (40-129) H Total Protein 5.1 g/dL (6.6-8.7) L Albumin 1.3 g/dL (3.5-5.2) L Globulin 3.8 g/dL Albumin/Globulin Ratio 0.3 (1.0-2.7) L Intake and Output 11/16/16 11/17/16 19:00 07:00 Intake Total 2450 ml 1735 ml Output Total 250 ml 400 ml Balance 2200 ml 1335 ml Free Water 450 ml 150 ml IV Total 1350 ml 1455 ml Tube Feeding 650 ml 130 ml Output Urine Total 250 ml 400 ml # Voids 1 # Bowel Movements 1 2 Objective General Appearance: moderate distress, thin EENT: PERRL/EOMI, normal ENT inspection Neck: non-tender, normal alignment, supple Cardiovascular: normal peripheral pulses, normal rate, regular rhythm, no gallop/murmur, no JVD Respiratory/Chest: Mech vent; respiratory distress, crackles/rales, rhonchi - bilaterally, expiratory wheezing Abdomen: non tender, soft, no organomegaly, no mass, decreased bowel sounds Extremities: normal range of motion Skin: normal pigmentation, warm/dry Assessment/Plan Problem List: (1) Lung nodule (2) DVT (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 (3) Acute respiratory failure Assessment & Plan: S/P tracheostomy 10/03/16. Cont vent per pulm (4) COPD exacerbation Assessment & Plan: Continue duoneb. Continue vent per pulmonary. (5) Pneumonia Assessment & Plan: MDR Acenitobacter. New RLL consolidation. Continue colistin inh, micafungin, linezolid, levaquin and meropenem per ID (6) Leukocytosis Assessment & Plan: Improving. Await Culture results. Start meropenem, levaquin, micafungin, colistin (inh) and linezolid per ID (7) Dysphagia Assessment & Plan: See GI consult- S/P PEG 10/04/16. (8) Hypoglycemia Assessment & Plan: D50 prn; decrease insulin sliding scale. (9) Dysuria Assessment & Plan: D/C garcia cath. (10) Severe sepsis Assessment & Plan: Blood cultures X2. Cont meropenem, colistin Inh, levaquin, micafungin and linezolid per ID. (11) Hypotension Assessment & Plan: ICU status for pressors, (12) Gastric mass (13) Mass of colon Assessment & Plan: Cecum and colon masses. See GI note. (14) UTI (urinary tract infection) due to Enterococcus Assessment & Plan: VRE. See ID note. (15) Empyema Assessment & Plan: Possible per pulmonary. Cont Micafungin, meropenem, colistin (inh) and linezolid per ID (16) Anemia Assessment & Plan: Worsening. 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? TADEO VERDIN November 17, 2016 13:41
[2016-11-17 16:00] VITALS: BP 136/80
--- NOTE | 2016-11-17 18:14 | Infectious Diseases Prog Note ---
Assessment/Plan Assessment/Plan ASSESSMENT: 66 y/o male with: // VAP / RUL lung abscess - SCx: MDR ACB and PSA , repeat Scx: PSA - CT 11/14 :Extensive pneumonia involving both lungs as described above. 5-6 cm cavitary focus suspicious for lung abscess in the right upper lobe. // Probable UTI : UCx yeast and VRE // Leukocytosis - improving ( DVT, probable CA contributing, SP steroids ) // Hypotension SP // Febrile low grade SP // HIV and Hep B/C : neg // Colon mass ro cancer , GI is following CT: Large cecal mass and other polypoid colonic masses, detailed previously , again demonstrated // SP PEG 10/04 // Chronic VDRF SP trach // Severe pulmonary HTN / grade I diastolic dysfunction / mod TR // Pulmonary nodules // Chronic RLE DVT // Tobacco abuse // [place] resident // Negative MRSA, VRE screens // NKDA // Full Code PLAN: - cont Merrem, Colistin INH , Zyvox and Mycamine d# 9 / and Levaquin d# 6 / ( 11/09 SP Vanco d# 6 / 10 and oral Vanco d# 5 ) ( 10/17 SP Ceftazidime d# 14 ) ( 10/13 SP Jairon nebs d# 14 ) ( 10/11 SP Flagyl d# 10 ) ( 10/04 SP oral Vanco d# 3 ) ( 09/24 SP amikacin, invanz d# 5 / 5 ) ( 09/21 SP IV vancomycin d# 2 ) - monitor CBC, temperatures - monitor BMP - monitor CXR - vent support, trach care, aspiration precautions - need for IR to drain the abscess , will defer to Pulm Subjective Allergies: Coded Allergies: No Known Allergies (Unverified , 06/17/16) Subjective low grade fever x1 resolved, WBC improved, remains on vent Objective Vital Signs Last 24 Hour Vital Signs Date Time Temp Pulse Resp B/P Pulse Ox O2 Delivery O2 Flow Rate FiO2 11/17/16 16:49 105 16 40 11/17/16 16:00 40 11/17/16 16:00 112 11/17/16 14:33 83 16 40 11/17/16 12:54 82 16 100 Mechanical Ventilator 30 11/17/16 12:44 40 11/17/16 12:44 80 16 100 Mechanical Ventilator 40 11/17/16 12:44 80 16 40 11/17/16 12:00 97.8 85 16 94/59 100 Mechanical Ventilator 100 11/17/16 12:00 40 11/17/16 12:00 89 11/17/16 10:38 101 16 40 11/17/16 08:46 99 16 40 11/17/16 08:00 97.2 98 16 122/72 100 Mechanical Ventilator 40 11/17/16 08:00 94 11/17/16 08:00 40 11/17/16 07:56 107 16 100 Mechanical Ventilator 40 11/17/16 07:37 106 16 100 Mechanical Ventilator 40 11/17/16 07:37 40 11/17/16 07:30 106 16 40 11/17/16 05:23 101 16 40 11/17/16 04:27 98.2 109 18 95/60 100 Mechanical Ventilator 11/17/16 04:10 40 11/17/16 04:10 101 16 100 Mechanical Ventilator 40 11/17/16 04:00 40 11/17/16 03:40 100 11/17/16 03:16 106 16 40 11/17/16 01:12 108 16 40 11/17/16 01:00 98.1 112 16 99/58 100 Mechanical Ventilator 11/17/16 00:00 40 11/16/16 23:52 101 16 100 Mechanical Ventilator 40 11/16/16 23:52 40 11/16/16 23:35 103 11/16/16 23:09 94 16 40 11/16/16 22:26 99 95/58 11/16/16 21:18 97 16 100 Mechanical Ventilator 40 11/16/16 21:17 97 16 40 11/16/16 20:00 98.0 108 20 83/53 100 Mechanical Ventilator 11/16/16 20:00 40 11/16/16 19:35 94 11/16/16 18:57 40 11/16/16 18:52 109 17 97 Mechanical Ventilator 40 11/16/16 18:50 109 17 40 Height (Feet): 6 Height (Inches): 2.00 Weight (Pounds): 126 General Appearance: no acute distress HEENT: status post trach Respiratory/Chest: decreased breath sounds Cardiovascular: normal rate, regular rhythm Abdomen: normal bowel sounds, soft, non tender, non distended Laboratory Tests Test 11/17/16 09:42 White Blood Count 15.3 K/UL (4.8-10.8) H Red Blood Count 2.98 M/UL (4.70-6.10) L Hemoglobin 8.2 G/DL (14.2-18.0) L Hematocrit 26.3 % (42.0-52.0) L Mean Corpuscular Volume 88 FL (80-99) Mean Corpuscular Hemoglobin 27.6 PG (27.0-31.0) Mean Corpuscular Hemoglobin Concent 31.3 G/DL (32.0-36.0) L Red Cell Distribution Width 18.6 % (11.6-14.8) H Platelet Count 333 K/UL (150-450) Mean Platelet Volume 6.4 FL (6.5-10.1) L Neutrophils (%) (Auto) % (45.0-75.0) Lymphocytes (%) (Auto) % (20.0-45.0) Monocytes (%) (Auto) % (1.0-10.0) Eosinophils (%) (Auto) % (0.0-3.0) Basophils (%) (Auto) % (0.0-2.0) Differential Total Cells Counted 100 Neutrophils % (Manual) 93 % (45-75) H Lymphocytes % (Manual) 1 % (20-45) L Monocytes % (Manual) 6 % (1-10) Eosinophils % (Manual) 0 % (0-3) Basophils % (Manual) 0 % (0-2) Band Neutrophils 0 % (0-8) Platelet Estimate Adequate Platelet Morphology Normal Hypochromasia 2+ Anisocytosis 2+ Prothrombin Time 12.7 SEC (9.30-11.50) H Prothromb Time International Ratio 1.2 (0.9-1.1) H Activated Partial Thromboplast Time 31 SEC (23-33) Sodium Level 144 mEQ/L (135-145) Potassium Level 4.8 mEQ/L (3.4-4.9) Chloride Level 104 mEQ/L (98-107) Carbon Dioxide Level 33 mEQ/L (20-30) H Anion Gap 7 (5-15) Blood Urea Nitrogen 17 mg/dL (7-23) Creatinine 0.5 mg/dL (0.7-1.2) L Estimat Glomerular Filtration Rate > 60 mL/min (>60) Glucose Level 80 mg/dL (74-106) Calcium Level 8.0 mg/dL (8.6-10.2) L Phosphorus Level 2.9 mg/dL (2.5-4.8) Magnesium Level 2.0 mg/dL (1.7-2.5) Total Bilirubin 0.3 mg/dL (0.0-1.2) Aspartate Amino Transf (AST/SGOT) 25 U/L (5-40) Alanine Aminotransferase (ALT/SGPT) 27 U/L (3-41) Alkaline Phosphatase 268 U/L (40-129) H Total Protein 5.1 g/dL (6.6-8.7) L Albumin 1.3 g/dL (3.5-5.2) L Globulin 3.8 g/dL Albumin/Globulin Ratio 0.3 (1.0-2.7) L Current Medications Medications (Trade) Dose Ordered Sig/Shraddha Route PRN Reason Start Time Stop Time Status Last Admin Dose Admin Acetaminophen (Tylenol) 650 mg Q4H PRN ORAL fever>100.5 11/02/16 17:00 12/02/16 16:59 Acetaminophen 650 mg 650 mg Q4H PRN GT headache 11/03/16 08:00 12/03/16 07:59 11/17/16 09:53 Colistimethate Sodium 150 mg 150 mg Q12HR@10,22 INH 11/09/16 22:00 11/22/16 23:59 11/17/16 07:37 Dextrose (Dextrose 50%) STAT PRN IV Hypoglycemia 11/02/16 17:00 12/02/16 16:59 Insulin Aspart (NovoLOG) start when feeding started Q6HR SUBQ 11/02/16 18:00 12/02/16 17:59 11/17/16 17:48 Lansoprazole (Prevacid) 30 mg DAILY GT 10/31/16 09:00 11/30/16 08:59 11/17/16 09:13 Levalbuterol HCl (Xopenex) 1.25 mg Q4H PRN HHN Shortness of Breath 11/17/16 16:30 11/22/16 16:29 11/17/16 16:49 Levofloxacin 150 ml @ 100 mls/hr Q24H IVPB 11/11/16 14:30 11/24/16 23:59 11/17/16 14:47 Linezolid (Zyvox) 300 ml @ 300 mls/hr Q12HR IVPB 11/09/16 21:00 11/22/16 23:59 11/17/16 09:13 Meropenem/Sodium Chloride (Merrem/Sodium Chloride) 110 ml @ 220 mls/hr Q8HR IVPB 11/15/16 22:00 11/22/16 21:59 11/17/16 13:12 Metoclopramide HCl (Reglan) 10 mg THREE TIMES A DAY GT 10/24/16 19:00 11/23/16 18:59 11/17/16 17:47 Micafungin Sodium 100 mg/Sodium Chloride 110 ml @ 110 mls/hr Q24H IVPB 11/10/16 20:00 11/23/16 23:59 11/16/16 20:15 Ondansetron HCl (Zofran) 4 mg Q6H PRN IVP Nausea & Vomiting 11/02/16 17:00 12/02/16 16:59 Polyethylene Glycol (Miralax) 17 gm DAILYPRN PRN GT Constipation 10/25/16 01:00 11/24/16 00:59 11/03/16 00:00 Sodium Chloride 500 ml @ 999 mls/hr PRN PRN IVPB For hypotension 11/09/16 17:15 12/09/16 17:14 11/10/16 22:00 Sodium Chloride 1,000 ml @ 75 mls/hr [id number] IV 11/11/16 01:00 12/11/16 00:59 11/17/16 09:53 NAOMI GEORGE November 17, 2016 18:14
[2016-11-17] MEDS: Micafungin 100 MG in NS 110 ML IVPB SCH (19:51)
[2016-11-17 20:00] VITALS: BP 110/60
[2016-11-18] VITALS: BP 102/62
[2016-11-18] MEDS: Levalbuterol Inh UD 1.25mg/0.5ml HHN PRN ×3 (03:10→18:35)
[2016-11-18 04:00] VITALS: BP 118/96
[2016-11-18] MEDS: NovoLOG Insulin Flexpen SUBQ SCH ×4 (05:25→18:00)
[2016-11-18] MEDS: Meropenem 1 GM in NS 110 ML IVPB SCH ×3 (05:25→23:50)
[2016-11-18 08:00] VITALS: BP 99/52
--- NOTE | 2016-11-18 10:01 | Infectious Diseases Prog Note ---
Assessment/Plan Assessment/Plan Plan ASSESSMENT: 66 y/o male with: // VAP / RUL lung abscess - SCx: MDR ACB and PSA , repeat Scx: PSA - CT 11/14 :Extensive pneumonia involving both lungs as described above. 5-6 cm cavitary focus suspicious for lung abscess in the right upper lobe. // Probable UTI : UCx yeast and VRE // Leukocytosis - improving ( DVT, probable CA contributing, SP steroids ) // Hypotension SP // Febrile low grade SP // HIV and Hep B/C : neg // Colon mass ro cancer , GI is following CT: Large cecal mass and other polypoid colonic masses, detailed previously , again demonstrated // SP PEG 10/04 // Chronic VDRF SP trach // Severe pulmonary HTN / grade I diastolic dysfunction / mod TR // Pulmonary nodules // Chronic RLE DVT // Tobacco abuse // [place] resident // Negative MRSA, VRE screens // NKDA // Full Code PLAN: - cont Merrem, Colistin INH , Zyvox and Mycamine d# 10 /14 and Levaquin d# 7 / 42 ( 11/09 SP Vanco d# 6 / 10 and oral Vanco d# 5 ) ( 10/17 SP Ceftazidime d# 14 ) ( 10/13 SP Jairon nebs d# 14 ) ( 10/11 SP Flagyl d# 10 ) ( 10/04 SP oral Vanco d# 3 ) ( 09/24 SP amikacin, invanz d# 5 / 5 ) ( 09/21 SP IV vancomycin d# 2 ) - monitor CBC, temperatures - monitor BMP - monitor CXR - vent support, trach care, aspiration precautions - need for IR to drain the abscess , will defer to Pulm Subjective Constitutional: Denies: anorexia, chills, drenching sweats, fatigue, fever, no symptoms, other Allergies: Coded Allergies: No Known Allergies (Unverified , 06/17/16) Subjective afebrile Objective Vital Signs Last 24 Hour Vital Signs Date Time Temp Pulse Resp B/P Pulse Ox O2 Delivery O2 Flow Rate FiO2 11/18/16 09:01 102 16 40 11/18/16 08:00 98.8 98 16 99/52 100 Mechanical Ventilator 40 11/18/16 07:10 97 16 40 11/18/16 05:24 121 16 40 11/18/16 04:00 40 11/18/16 04:00 98.0 70 18 118/96 Room Air 11/18/16 03:11 94 11/18/16 03:10 40 11/18/16 03:10 102 16 99 Mechanical Ventilator 40 11/18/16 02:35 91 16 40 11/18/16 01:13 96 16 40 11/18/16 01:12 108 16 100 Mechanical Ventilator 40 11/18/16 00:00 97.7 86 18 102/62 90 Room Air 11/18/16 00:00 40 11/17/16 23:15 107 11/17/16 22:30 103 16 100 Mechanical Ventilator 40 11/17/16 22:30 105 16 40 11/17/16 22:30 40 11/17/16 20:57 92 16 100 Mechanical Ventilator 40 11/17/16 20:57 40 11/17/16 20:52 93 16 40 11/17/16 20:00 40 11/17/16 20:00 97.7 96 18 110/60 98 Room Air 11/17/16 19:40 89 11/17/16 19:15 108 16 40 11/17/16 16:49 105 16 40 11/17/16 16:00 40 11/17/16 16:00 97.5 107 16 136/80 100 Mechanical Ventilator 40 11/17/16 16:00 112 11/17/16 14:33 83 16 40 11/17/16 12:54 82 16 100 Mechanical Ventilator 30 11/17/16 12:44 40 11/17/16 12:44 80 16 100 Mechanical Ventilator 40 11/17/16 12:44 80 16 40 11/17/16 12:00 97.8 85 16 94/59 100 Mechanical Ventilator 100 11/17/16 12:00 40 11/17/16 12:00 89 11/17/16 10:38 101 16 40 Height (Feet): 6 Height (Inches): 2.00 Weight (Pounds): 126 HEENT: atraumatic Respiratory/Chest: normal breath sounds Cardiovascular: regularly irregular Abdomen: no organomegaly Laboratory Tests Test 11/18/16 09:30 White Blood Count Pending Red Blood Count Pending Hemoglobin Pending Hematocrit Pending Mean Corpuscular Volume Pending Mean Corpuscular Hemoglobin Pending Mean Corpuscular Hemoglobin Concent Pending Red Cell Distribution Width Pending Platelet Count Pending Mean Platelet Volume Pending Neutrophils (%) (Auto) Pending Lymphocytes (%) (Auto) Pending Monocytes (%) (Auto) Pending Eosinophils (%) (Auto) Pending Basophils (%) (Auto) Pending Sodium Level Pending Potassium Level Pending Chloride Level Pending Carbon Dioxide Level Pending Blood Urea Nitrogen Pending Creatinine Pending Estimat Glomerular Filtration Rate Pending Glucose Level Pending Calcium Level Pending Total Bilirubin Pending Aspartate Amino Transf (AST/SGOT) Pending Alanine Aminotransferase (ALT/SGPT) Pending Alkaline Phosphatase Pending Pro-B-Type Natriuretic Peptide Pending Total Protein Pending Albumin Pending Globulin Pending Current Medications Medications (Trade) Dose Ordered Sig/Shraddha Route PRN Reason Start Time Stop Time Status Last Admin Dose Admin Acetaminophen (Tylenol) 650 mg Q4H PRN ORAL fever>100.5 11/02/16 17:00 12/02/16 16:59 Acetaminophen 650 mg 650 mg Q4H PRN GT headache 11/03/16 08:00 12/03/16 07:59 11/17/16 09:53 Colistimethate Sodium 150 mg 150 mg Q12HR@10,22 INH 11/09/16 22:00 11/22/16 23:59 11/17/16 22:30 Dextrose (Dextrose 50%) STAT PRN IV Hypoglycemia 11/02/16 17:00 12/02/16 16:59 Insulin Aspart (NovoLOG) start when feeding started Q6HR SUBQ 11/02/16 18:00 12/02/16 17:59 11/17/16 17:48 Lansoprazole (Prevacid) 30 mg DAILY GT 10/31/16 09:00 11/30/16 08:59 11/18/16 08:30 Levalbuterol HCl (Xopenex) 1.25 mg Q4H PRN HHN Shortness of Breath 11/17/16 16:30 11/22/16 16:29 11/18/16 03:10 Levofloxacin 150 ml @ 100 mls/hr Q24H IVPB 11/11/16 14:30 11/24/16 23:59 11/17/16 14:47 Linezolid (Zyvox) 300 ml @ 300 mls/hr Q12HR IVPB 11/09/16 21:00 11/22/16 23:59 11/18/16 08:30 Meropenem/Sodium Chloride (Merrem/Sodium Chloride) 110 ml @ 220 mls/hr Q8HR IVPB 11/15/16 22:00 11/22/16 21:59 11/18/16 05:25 Metoclopramide HCl (Reglan) 10 mg THREE TIMES A DAY GT 10/24/16 19:00 11/23/16 18:59 11/18/16 08:30 Micafungin Sodium 100 mg/Sodium Chloride 110 ml @ 110 mls/hr Q24H IVPB 11/10/16 20:00 11/23/16 23:59 11/17/16 19:51 Ondansetron HCl (Zofran) 4 mg Q6H PRN IVP Nausea & Vomiting 11/02/16 17:00 12/02/16 16:59 Polyethylene Glycol (Miralax) 17 gm DAILYPRN PRN GT Constipation 10/25/16 01:00 11/24/16 00:59 11/03/16 00:00 Sodium Chloride 500 ml @ 999 mls/hr PRN PRN IVPB For hypotension 11/09/16 17:15 12/09/16 17:14 11/10/16 22:00 Sodium Chloride 1,000 ml @ 75 mls/hr [id number] IV 11/11/16 01:00 12/11/16 00:59 11/18/16 02:06 KIMBERLEE HINKLE M.D. November 18, 2016 10:01
[2016-11-18 10:04] LABS: MEAN CORPUSCULAR HEMOGLOBIN 28.3 PG (27.0-31.0); MEAN CORPUSCULAR HGB CONC 32.7 G/DL (32.0-36.0); MEAN CORPUSCULAR VOLUME 86 FL (80-99); MEAN PLATELET VOLUME 6.5 FL (6.5-10.1); PLATELET COUNT 316 K/UL (150-450); RED BLOOD COUNT 2.77 M/UL (4.70-6.10); WHITE BLOOD COUNT 16.9 K/UL (4.8-10.8)
[2016-11-18 10:06] LABS: OTHERS PATHOLOGIST COMMENT
[2016-11-18] MEDS: Colistin for inhalation INH SCH ×2 (10:20→21:22)
[2016-11-18 10:21] LABS: ALANINE AMINOTRANSFERASE 23 U/L (3-41); ALBUMIN/GLOBULIN RATIO 0.3 (1.0-2.7); ANION GAP 8 (5-15); ASPARTATE AMINO TRANSFERASE 26 U/L (5-40); CARBON DIOXIDE 34 mEQ/L (20-30); CHLORIDE 102 mEQ/L (98-107); CREATININE 0.5 mg/dL (0.7-1.2); GLOMERULAR FILTRATION RATE > 60 mL/min (>60); HEMOLYSIS 1; POTASSIUM 4.3 mEQ/L (3.4-4.9); SODIUM 144 mEQ/L (135-145); TOTAL PROTEIN 4.9 g/dL (6.6-8.7)
[2016-11-18 10:37] LABS: ANISOCYTOSIS 1+; BAND NEUTROPHILS % (MANUAL) 0 % (0-8); BASOPHILS % (MANUAL) 0 % (0-2); EOSINOPHILS % (MANUAL) 0 % (0-3); HYPOCHROMASIA 1+; LYMPHOCYTES % (MANUAL) 3 % (20-45); NEUTROPHILS % (MANUAL) 91 % (45-75); PLATELET ESTIMATE ADEQUATE; PLATELET MORPHOLOGY NORMAL; TOTAL CELLS COUNTED 100
--- NOTE | 2016-11-18 10:37 | Internal Med Progress Note ---
Subjective Date of Service: November 18, 2016 Physician Name Verdin,Tadeo Attending Physician Steve Rader MD Current Medications Medications (Trade) Dose Ordered Sig/Shraddha Route PRN Reason Start Time Stop Time Status Last Admin Dose Admin Acetaminophen (Tylenol) 650 mg Q4H PRN ORAL fever>100.5 11/02/16 17:00 12/02/16 16:59 Acetaminophen 650 mg 650 mg Q4H PRN GT headache 11/03/16 08:00 12/03/16 07:59 11/17/16 09:53 Colistimethate Sodium 150 mg 150 mg Q12HR@10,22 INH 11/09/16 22:00 11/22/16 23:59 11/18/16 10:20 Dextrose (Dextrose 50%) STAT PRN IV Hypoglycemia 11/02/16 17:00 12/02/16 16:59 Insulin Aspart (NovoLOG) start when feeding started Q6HR SUBQ 11/02/16 18:00 12/02/16 17:59 11/17/16 17:48 Lansoprazole (Prevacid) 30 mg DAILY GT 10/31/16 09:00 11/30/16 08:59 11/18/16 08:30 Levalbuterol HCl (Xopenex) 1.25 mg Q4H PRN HHN Shortness of Breath 11/17/16 16:30 11/22/16 16:29 11/18/16 03:10 Levofloxacin 150 ml @ 100 mls/hr Q24H IVPB 11/11/16 14:30 11/24/16 23:59 11/17/16 14:47 Linezolid (Zyvox) 300 ml @ 300 mls/hr Q12HR IVPB 11/09/16 21:00 11/22/16 23:59 11/18/16 08:30 Meropenem/Sodium Chloride (Merrem/Sodium Chloride) 110 ml @ 220 mls/hr Q8HR IVPB 11/15/16 22:00 11/22/16 21:59 11/18/16 05:25 Metoclopramide HCl (Reglan) 10 mg THREE TIMES A DAY GT 10/24/16 19:00 11/23/16 18:59 11/18/16 08:30 Micafungin Sodium 100 mg/Sodium Chloride 110 ml @ 110 mls/hr Q24H IVPB 11/10/16 20:00 11/23/16 23:59 11/17/16 19:51 Ondansetron HCl (Zofran) 4 mg Q6H PRN IVP Nausea & Vomiting 11/02/16 17:00 12/02/16 16:59 Polyethylene Glycol (Miralax) 17 gm DAILYPRN PRN GT Constipation 10/25/16 01:00 11/24/16 00:59 11/03/16 00:00 Sodium Chloride 500 ml @ 999 mls/hr PRN PRN IVPB For hypotension 11/09/16 17:15 12/09/16 17:14 11/10/16 22:00 Sodium Chloride 1,000 ml @ 75 mls/hr [id number] IV 11/11/16 01:00 12/11/16 00:59 11/18/16 02:06 Allergies: Coded Allergies: No Known Allergies (Unverified , 06/17/16) ROS Limited/Unobtainable: No Constitutional: Reports: no symptoms HEENT: Reports: no symptoms Cardiovascular: Reports: no symptoms Respiratory: Reports: no symptoms Gastrointestinal/Abdominal: Reports: no symptoms Genitourinary: Reports: no symptoms Neurologic/Psychiatric: Reports: no symptoms Subjective 66 YO M admitted with respiratory failure. JORDAN. Back on [facility] vent. Cover for Int Wilder-Dr Rader. Objective Last Vital Signs Date Time Temp Pulse Resp B/P Pulse Ox O2 Delivery O2 Flow Rate FiO2 11/18/16 10:30 96 16 100 Mechanical Ventilator 40 11/18/16 08:00 98.8 99/52 11/12/16 16:00 2.0 Laboratory Tests Test 11/18/16 09:30 White Blood Count 16.9 K/UL (4.8-10.8) H Red Blood Count 2.77 M/UL (4.70-6.10) L Hemoglobin 7.8 G/DL (14.2-18.0) L Hematocrit 24.0 % (42.0-52.0) L Mean Corpuscular Volume 86 FL (80-99) Mean Corpuscular Hemoglobin 28.3 PG (27.0-31.0) Mean Corpuscular Hemoglobin Concent 32.7 G/DL (32.0-36.0) Red Cell Distribution Width 19.0 % (11.6-14.8) H Platelet Count 316 K/UL (150-450) Mean Platelet Volume 6.5 FL (6.5-10.1) Neutrophils (%) (Auto) % (45.0-75.0) Lymphocytes (%) (Auto) % (20.0-45.0) Monocytes (%) (Auto) % (1.0-10.0) Eosinophils (%) (Auto) % (0.0-3.0) Basophils (%) (Auto) % (0.0-2.0) Neutrophils % (Manual) Pending Lymphocytes % (Manual) Pending Platelet Estimate Pending Platelet Morphology Pending Sodium Level 144 mEQ/L (135-145) Potassium Level 4.3 mEQ/L (3.4-4.9) Chloride Level 102 mEQ/L (98-107) Carbon Dioxide Level 34 mEQ/L (20-30) H Anion Gap 8 (5-15) Blood Urea Nitrogen 16 mg/dL (7-23) Creatinine 0.5 mg/dL (0.7-1.2) L Estimat Glomerular Filtration Rate > 60 mL/min (>60) Glucose Level 84 mg/dL (74-106) Calcium Level 8.0 mg/dL (8.6-10.2) L Total Bilirubin 0.4 mg/dL (0.0-1.2) Aspartate Amino Transf (AST/SGOT) 26 U/L (5-40) Alanine Aminotransferase (ALT/SGPT) 23 U/L (3-41) Alkaline Phosphatase 223 U/L (40-129) H Pro-B-Type Natriuretic Peptide Pending Total Protein 4.9 g/dL (6.6-8.7) L Albumin 1.3 g/dL (3.5-5.2) L Globulin 3.6 g/dL Albumin/Globulin Ratio 0.3 (1.0-2.7) L Intake and Output 11/17/16 11/18/16 19:00 07:00 Intake Total 2350 ml 1509 ml Output Total 675 ml 600 ml Balance 1675 ml 909 ml Free Water 250 ml 150 ml IV Total 1450 ml 1229 ml Tube Feeding 650 ml 130 ml Output Urine Total 675 ml 600 ml # Bowel Movements 2 1 Objective General Appearance: moderate distress, thin EENT: PERRL/EOMI, normal ENT inspection Neck: non-tender, normal alignment, supple Cardiovascular: normal peripheral pulses, normal rate, regular rhythm, no gallop/murmur, no JVD Respiratory/Chest: Mech vent; respiratory distress, crackles/rales, rhonchi - bilaterally, expiratory wheezing Abdomen: non tender, soft, no organomegaly, no mass, decreased bowel sounds Extremities: normal range of motion Skin: normal pigmentation, warm/dry Assessment/Plan Problem List: (1) Lung nodule (2) DVT (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 (3) Acute respiratory failure Assessment & Plan: S/P tracheostomy 10/03/16. Cont vent per pulm (4) COPD exacerbation Assessment & Plan: Continue duoneb. Continue vent per pulmonary. (5) Pneumonia Assessment & Plan: Pseudamonas. New RLL consolidation. Continue colistin inh , micafungin, linezolid, levaquin and meropenem per ID (6) Leukocytosis Assessment & Plan: Improving. Await Culture results. Start meropenem, levaquin, micafungin, colistin (inh) and linezolid per ID (7) Dysphagia Assessment & Plan: See GI consult- S/P PEG 10/04/16. (8) Hypoglycemia Assessment & Plan: D50 prn; decrease insulin sliding scale. (9) Dysuria Assessment & Plan: D/C garcia cath. (10) Severe sepsis Assessment & Plan: Blood cultures X2. Cont meropenem, colistin Inh, levaquin, micafungin and linezolid per ID. (11) Hypotension Assessment & Plan: ICU status for pressors, (12) Gastric mass (13) Mass of colon Assessment & Plan: Cecum and colon masses. See GI note. (14) UTI (urinary tract infection) due to Enterococcus Assessment & Plan: Love. On micafungin. See ID note. (15) Empyema Assessment & Plan: Possible per pulmonary. Cont Micafungin, meropenem, colistin (inh) and linezolid per ID (16) Anemia Assessment & Plan: S/P transfusion 1 unit PRBC Status: progressing Assessment/Plan Await placement @ [facility] acute care [facility] ?[facility]? TADEO VERDIN November 18, 2016 10:37
--- NOTE | 2016-11-18 11:53 | Diagnostic Imaging Report ---
Indication: Dyspnea Comparison: 11/10/16 A single view chest radiograph was obtained. Findings: Sensitive right pulmonary infiltrate again demonstrated with additional hazy groundglass opacification which is probably on the basis of a pleural effusion. In addition there is new infiltrate now noted in the left lung base. Tracheostomy is present. Heart size remains normal. Impression: Increasing left basilar infiltrate. Extensive right pulmonary filtrate unchanged. Suspected right pleural effusion as well.
[2016-11-18 12:00] VITALS: BP 100/63
[2016-11-18] MEDS ORDERED: Sodium Bicarbonate 8.4% 50ml Inj IV ONE (12:00)
[2016-11-18] MEDS ORDERED: Heparin 2000 units/Ns 1000ml INJ ONE (12:00)
[2016-11-18] MEDS ORDERED: Lidocaine 1% Plain 30 ml INJ ONE (12:00)
--- NOTE | 2016-11-18 12:03 | Pulmonology Progress Note ---
Assessment/Plan Problems: (1) Lung abscess (2) Severe sepsis (3) Abdominal distention (4) Respiratory failure (5) COPD exacerbation (6) Emphysema of lung (7) Colonic mass Assessment/Plan cxr reviewed, extensive right infiltrate cont Merrem, Colistin INH , Zyvox and Mycamine d# 8 / and Levaquin d# wbc decreasing slowly continue current vent setting, titrate fio2 to sat of 92% not tolerating weaning Subjective ROS Limited/Unobtainable: No Constitutional: Reports: no symptoms HEENT: Repors: no symptoms Respiratory: Reports: no symptoms Allergies: Coded Allergies: No Known Allergies (Unverified , 06/17/16) Objective Last 24 Hour Vital Signs Date Time Temp Pulse Resp B/P Pulse Ox O2 Delivery O2 Flow Rate FiO2 11/18/16 11:07 117 16 40 11/18/16 10:30 96 16 100 Mechanical Ventilator 40 11/18/16 10:20 82 16 100 Mechanical Ventilator 40 11/18/16 10:20 40 11/18/16 09:01 102 16 40 11/18/16 08:00 97 11/18/16 08:00 40 11/18/16 08:00 98.8 98 16 99/52 100 Mechanical Ventilator 40 11/18/16 07:10 97 16 40 11/18/16 05:24 121 16 40 11/18/16 04:00 40 11/18/16 04:00 98.0 70 18 118/96 Room Air 11/18/16 03:11 94 11/18/16 03:10 40 11/18/16 03:10 102 16 99 Mechanical Ventilator 40 11/18/16 02:35 91 16 40 11/18/16 01:13 96 16 40 11/18/16 01:12 108 16 100 Mechanical Ventilator 40 11/18/16 00:00 97.7 86 18 102/62 90 Room Air 11/18/16 00:00 40 11/17/16 23:15 107 11/17/16 22:30 103 16 100 Mechanical Ventilator 40 11/17/16 22:30 105 16 40 11/17/16 22:30 40 11/17/16 20:57 92 16 100 Mechanical Ventilator 40 11/17/16 20:57 40 11/17/16 20:52 93 16 40 11/17/16 20:00 40 11/17/16 20:00 97.7 96 18 110/60 98 Room Air 11/17/16 19:40 89 11/17/16 19:15 108 16 40 11/17/16 16:49 105 16 40 11/17/16 16:00 40 11/17/16 16:00 97.5 107 16 136/80 100 Mechanical Ventilator 40 11/17/16 16:00 112 11/17/16 14:33 83 16 40 11/17/16 12:54 82 16 100 Mechanical Ventilator 30 11/17/16 12:44 40 11/17/16 12:44 80 16 100 Mechanical Ventilator 40 11/17/16 12:44 80 16 40 Intake and Output 11/17/16 11/18/16 19:00 07:00 Intake Total 2350 ml 1584 ml Output Total 675 ml 600 ml Balance 1675 ml 984 ml Free Water 250 ml 150 ml IV Total 1450 ml 1304 ml Tube Feeding 650 ml 130 ml Output Urine Total 675 ml 600 ml # Bowel Movements 2 1 Objective Status: awake HEENT: atraumatic, normocephalic Lungs: clear, decreased breath sounds Heart: HR/BP stable Abdomen: soft, non-tender Extremities: no C/C/E, edema Laboratory Tests 11/18/16 09:30: White Blood Count 16.9H, Red Blood Count 2.77L, Hemoglobin 7.8L, Hematocrit 24.0L, Mean Corpuscular Volume 86, Mean Corpuscular Hemoglobin 28.3, Mean Corpuscular Hemoglobin Concent 32.7, Red Cell Distribution Width 19.0H, Platelet Count 316, Mean Platelet Volume 6.5, Neutrophils (%) (Auto) , Lymphocytes (%) (Auto) , Monocytes (%) (Auto) , Eosinophils (%) (Auto) , Basophils (%) (Auto) , Differential Total Cells Counted 100, Neutrophils % ( Manual) 91H, Lymphocytes % (Manual) 3L, Monocytes % (Manual) 6, Eosinophils % ( Manual) 0, Basophils % (Manual) 0, Band Neutrophils 0, Platelet Estimate Adequate, Platelet Morphology Normal, Hypochromasia 1+, Anisocytosis 1+, Sodium Level 144, Potassium Level 4.3, Chloride Level 102, Carbon Dioxide Level 34H, Anion Gap 8, Blood Urea Nitrogen 16, Creatinine 0.5L, Estimat Glomerular Filtration Rate > 60, Glucose Level 84, Calcium Level 8.0L, Total Bilirubin 0.4 , Aspartate Amino Transf (AST/SGOT) 26, Alanine Aminotransferase (ALT/SGPT) 23, Alkaline Phosphatase 223H, Pro-B-Type Natriuretic Peptide 1936H, Total Protein 4.9L, Albumin 1.3L, Globulin 3.6, Albumin/Globulin Ratio 0.3L Current Medications Medications (Trade) Dose Ordered Sig/Shraddha Route PRN Reason Start Time Stop Time Status Last Admin Dose Admin Acetaminophen (Tylenol) 650 mg Q4H PRN ORAL fever>100.5 11/02/16 17:00 12/02/16 16:59 Acetaminophen 650 mg 650 mg Q4H PRN GT headache 11/03/16 08:00 12/03/16 07:59 11/17/16 09:53 Colistimethate Sodium 150 mg 150 mg Q12HR@10,22 INH 11/09/16 22:00 11/22/16 23:59 11/18/16 10:20 Dextrose (Dextrose 50%) STAT PRN IV Hypoglycemia 11/02/16 17:00 12/02/16 16:59 Insulin Aspart (NovoLOG) start when feeding started Q6HR SUBQ 11/02/16 18:00 12/02/16 17:59 11/17/16 17:48 Lansoprazole (Prevacid) 30 mg DAILY GT 10/31/16 09:00 11/30/16 08:59 11/18/16 08:30 Levalbuterol HCl (Xopenex) 1.25 mg Q4H PRN HHN Shortness of Breath 11/17/16 16:30 11/22/16 16:29 11/18/16 03:10 Levofloxacin 150 ml @ 100 mls/hr Q24H IVPB 11/11/16 14:30 11/24/16 23:59 11/17/16 14:47 Linezolid (Zyvox) 300 ml @ 300 mls/hr Q12HR IVPB 11/09/16 21:00 11/22/16 23:59 11/18/16 08:30 Meropenem/Sodium Chloride (Merrem/Sodium Chloride) 110 ml @ 220 mls/hr Q8HR IVPB 11/15/16 22:00 11/22/16 21:59 11/18/16 05:25 Metoclopramide HCl (Reglan) 10 mg THREE TIMES A DAY GT 10/24/16 19:00 11/23/16 18:59 11/18/16 08:30 Micafungin Sodium 100 mg/Sodium Chloride 110 ml @ 110 mls/hr Q24H IVPB 11/10/16 20:00 11/23/16 23:59 11/17/16 19:51 Ondansetron HCl (Zofran) 4 mg Q6H PRN IVP Nausea & Vomiting 11/02/16 17:00 12/02/16 16:59 Polyethylene Glycol (Miralax) 17 gm DAILYPRN PRN GT Constipation 10/25/16 01:00 11/24/16 00:59 11/03/16 00:00 Sodium Chloride 500 ml @ 999 mls/hr PRN PRN IVPB For hypotension 11/09/16 17:15 12/09/16 17:14 11/10/16 22:00 Sodium Chloride 1,000 ml @ 75 mls/hr [id number] IV 11/11/16 01:00 12/11/16 00:59 11/18/16 02:06 REN WRIGHT November 18, 2016 12:03
--- NOTE | 2016-11-18 12:51 | Diagnostic Imaging Report ---
Indication: musculoskeletal physiotherapist venous access Findings: After the indications, procedure, risks, complications, and alternatives of the procedure were explained, written informed consent was obtained. The left upper extremity was prepped with alcohol. All elements of maximal sterile barrier technique were followed including usage of a cap, mask, sterile gown, sterile gloves, hand hygiene and a large sterile sheet. Sonographic evaluation of the upper extremity was performed demonstrating a patent and compressible basilic vein. Access was obtained under real-time ultrasound guidance and digital image was saved and archived. An .018 wire was introduced. Needle exchanged for a 5 Russian peel-away sheath. Measurements were obtained. A 5 Russian dual-lumen Power PICC line catheter was cut to 40 cm and introduced over the wire. Peel-away sheath and wire were removed.Catheter was secured to the skin using 2-0 Prolene suture. Both ports aspirate and flush easily. Post procedure chest x-ray demonstrates good position of the PICC line catheter within the SVC. Impression: Successful placement of an upper extremity PICC line catheter
[2016-11-18 16:00] VITALS: BP 102/64
--- NOTE | 2016-11-18 16:38 | Cardiac Electrophysiology PN ---
Assessment/Plan Assessment/Plan 1. Sinus tachycardia due to sepsis now better in s 2. Hypotension. Due to sepsis and anemia. On ABx. Getting PRBC today. 3. Severe COPD and pulmonary hypertension 4. Ventilator-dependant respiratory failure, status post tracheostomy. 5. Dysphagia, status post percutaneous endoscopic gastrostomy placement. 6. Sepsis due to MDR ACB and PSA , on broad-spectrum intravenous antibiotics and antifungal per ID. 7. Lung abscess 8. Colonic mass and anemia. Getting transfusion. Follow up Dr Arevalo and Yadira CHAVEZ RN Subjective Subjective Alert on Vent via tracheostomy with PEG on JORDAN. Remained in SR overnight.Had Left arm PICC line today. Awaiting blood one unit PRBC transfusion Objective Last 24 Hour Vital Signs Date Time Temp Pulse Resp B/P Pulse Ox O2 Delivery O2 Flow Rate FiO2 11/18/16 16:00 99 11/18/16 16:00 40 11/18/16 15:46 100 16 99 Mechanical Ventilator 40 11/18/16 15:46 40 11/18/16 15:00 99 16 40 11/18/16 13:13 101 17 40 11/18/16 12:00 105 11/18/16 12:00 99.4 97 16 100/63 99 Mechanical Ventilator 40 11/18/16 12:00 40 11/18/16 11:07 117 16 40 11/18/16 10:30 96 16 100 Mechanical Ventilator 40 11/18/16 10:20 82 16 100 Mechanical Ventilator 40 11/18/16 10:20 40 11/18/16 09:01 102 16 40 11/18/16 08:00 97 11/18/16 08:00 40 11/18/16 08:00 98.8 98 16 99/52 100 Mechanical Ventilator 40 11/18/16 07:10 97 16 40 11/18/16 05:24 121 16 40 11/18/16 04:00 40 11/18/16 04:00 98.0 70 18 118/96 Room Air 11/18/16 03:11 94 11/18/16 03:10 40 11/18/16 03:10 102 16 99 Mechanical Ventilator 40 11/18/16 02:35 91 16 40 11/18/16 01:13 96 16 40 11/18/16 01:12 108 16 100 Mechanical Ventilator 40 11/18/16 00:00 97.7 86 18 102/62 90 Room Air 11/18/16 00:00 40 11/17/16 23:15 107 11/17/16 22:30 103 16 100 Mechanical Ventilator 40 11/17/16 22:30 105 16 40 11/17/16 22:30 40 11/17/16 20:57 92 16 100 Mechanical Ventilator 40 11/17/16 20:57 40 11/17/16 20:52 93 16 40 11/17/16 20:00 40 11/17/16 20:00 97.7 96 18 110/60 98 Room Air 11/17/16 19:40 89 11/17/16 19:15 108 16 40 11/17/16 16:49 105 16 40 Intake and Output 11/17/16 11/18/16 19:00 07:00 Intake Total 2350 ml 1584 ml Output Total 675 ml 600 ml Balance 1675 ml 984 ml Free Water 250 ml 150 ml IV Total 1450 ml 1304 ml Tube Feeding 650 ml 130 ml Output Urine Total 675 ml 600 ml # Bowel Movements 2 1 Laboratory Tests Test 11/18/16 09:30 White Blood Count 16.9 K/UL (4.8-10.8) H Red Blood Count 2.77 M/UL (4.70-6.10) L Hemoglobin 7.8 G/DL (14.2-18.0) L Hematocrit 24.0 % (42.0-52.0) L Mean Corpuscular Volume 86 FL (80-99) Mean Corpuscular Hemoglobin 28.3 PG (27.0-31.0) Mean Corpuscular Hemoglobin Concent 32.7 G/DL (32.0-36.0) Red Cell Distribution Width 19.0 % (11.6-14.8) H Platelet Count 316 K/UL (150-450) Mean Platelet Volume 6.5 FL (6.5-10.1) Neutrophils (%) (Auto) % (45.0-75.0) Lymphocytes (%) (Auto) % (20.0-45.0) Monocytes (%) (Auto) % (1.0-10.0) Eosinophils (%) (Auto) % (0.0-3.0) Basophils (%) (Auto) % (0.0-2.0) Differential Total Cells Counted 100 Neutrophils % (Manual) 91 % (45-75) H Lymphocytes % (Manual) 3 % (20-45) L Monocytes % (Manual) 6 % (1-10) Eosinophils % (Manual) 0 % (0-3) Basophils % (Manual) 0 % (0-2) Band Neutrophils 0 % (0-8) Platelet Estimate Adequate Platelet Morphology Normal Hypochromasia 1+ Anisocytosis 1+ Sodium Level 144 mEQ/L (135-145) Potassium Level 4.3 mEQ/L (3.4-4.9) Chloride Level 102 mEQ/L (98-107) Carbon Dioxide Level 34 mEQ/L (20-30) H Anion Gap 8 (5-15) Blood Urea Nitrogen 16 mg/dL (7-23) Creatinine 0.5 mg/dL (0.7-1.2) L Estimat Glomerular Filtration Rate > 60 mL/min (>60) Glucose Level 84 mg/dL (74-106) Calcium Level 8.0 mg/dL (8.6-10.2) L Total Bilirubin 0.4 mg/dL (0.0-1.2) Aspartate Amino Transf (AST/SGOT) 26 U/L (5-40) Alanine Aminotransferase (ALT/SGPT) 23 U/L (3-41) Alkaline Phosphatase 223 U/L (40-129) H Pro-B-Type Natriuretic Peptide 1936 pg/mL (0-125) H Total Protein 4.9 g/dL (6.6-8.7) L Albumin 1.3 g/dL (3.5-5.2) L Globulin 3.6 g/dL Albumin/Globulin Ratio 0.3 (1.0-2.7) L Objective HEAD AND NECK: No jugular venous distention, tracheostomy intact. LUNGS: Coarse rhonchi bilaterally. CARDIOVASCULAR: Tachycardic S1 and S2 with no gallop or murmur. ABDOMEN: Soft. G-tube intact. EXTREMITIES: Bilateral arm edema.PICC line in place. OSWALD HILLS November 18, 2016 16:38
[2016-11-18] MEDS: Acetaminophen 650mg/20.3ml GT PRN (17:47)
[2016-11-18 20:00] VITALS: BP 91/60
--- NOTE | 2016-11-18 21:15 | General Progress Note ---
Assessment/Plan Assessment/Plan Assessment - Colon polyps/mass seen on CT - patient has declined GI w/u - COPD - respiratory failure - PNA and lung abscess - s/p trach and PEG - dysphagia - Leukocytosis - h/o OB (+) - Anemia - gradual decline - Poor PX Recommendations - transfuse PRN - elevate HOB - abx - GT care / TF - follow labs - level of care discussion - will see pt intermittently Subjective Allergies: Coded Allergies: No Known Allergies (Unverified , 06/17/16) Subjective more awake today no abd c/o tolerating cycled TF Objective Last 24 Hour Vital Signs Date Time Temp Pulse Resp B/P Pulse Ox O2 Delivery O2 Flow Rate FiO2 11/18/16 18:36 40 11/18/16 18:36 122 16 100 Mechanical Ventilator 40 11/18/16 18:36 120 16 100 Mechanical Ventilator 40 11/18/16 18:33 115 16 40 11/18/16 18:17 99.1 11/18/16 17:20 94 16 40 11/18/16 16:00 99 11/18/16 16:00 99.1 99 16 102/64 99 Mechanical Ventilator 40 11/18/16 16:00 40 11/18/16 15:46 100 16 99 Mechanical Ventilator 40 11/18/16 15:46 40 11/18/16 15:00 99 16 40 11/18/16 13:13 101 17 40 11/18/16 12:00 105 11/18/16 12:00 99.4 97 16 100/63 99 Mechanical Ventilator 40 11/18/16 12:00 40 11/18/16 11:07 117 16 40 11/18/16 10:30 96 16 100 Mechanical Ventilator 40 11/18/16 10:20 82 16 100 Mechanical Ventilator 40 11/18/16 10:20 40 11/18/16 09:01 102 16 40 11/18/16 08:00 97 11/18/16 08:00 40 11/18/16 08:00 98.8 98 16 99/52 100 Mechanical Ventilator 40 11/18/16 07:10 97 16 40 11/18/16 05:24 121 16 40 11/18/16 04:00 40 11/18/16 04:00 98.0 70 18 118/96 Room Air 11/18/16 03:11 94 11/18/16 03:10 40 11/18/16 03:10 102 16 99 Mechanical Ventilator 40 11/18/16 02:35 91 16 40 11/18/16 01:13 96 16 40 11/18/16 01:12 108 16 100 Mechanical Ventilator 40 11/18/16 00:00 97.7 86 18 102/62 90 Room Air 11/18/16 00:00 40 11/17/16 23:15 107 11/17/16 22:30 103 16 100 Mechanical Ventilator 40 11/17/16 22:30 105 16 40 11/17/16 22:30 40 Intake and Output 11/17/16 11/18/16 19:00 07:00 Intake Total 2350 ml 1584 ml Output Total 675 ml 600 ml Balance 1675 ml 984 ml Free Water 250 ml 150 ml IV Total 1450 ml 1304 ml Tube Feeding 650 ml 130 ml Output Urine Total 675 ml 600 ml # Bowel Movements 2 1 Laboratory Tests 11/18/16 09:30: White Blood Count 16.9H, Red Blood Count 2.77L, Hemoglobin 7.8L, Hematocrit 24.0L, Mean Corpuscular Volume 86, Mean Corpuscular Hemoglobin 28.3, Mean Corpuscular Hemoglobin Concent 32.7, Red Cell Distribution Width 19.0H, Platelet Count 316, Mean Platelet Volume 6.5, Neutrophils (%) (Auto) , Lymphocytes (%) (Auto) , Monocytes (%) (Auto) , Eosinophils (%) (Auto) , Basophils (%) (Auto) , Differential Total Cells Counted 100, Neutrophils % ( Manual) 91H, Lymphocytes % (Manual) 3L, Monocytes % (Manual) 6, Eosinophils % ( Manual) 0, Basophils % (Manual) 0, Band Neutrophils 0, Platelet Estimate Adequate, Platelet Morphology Normal, Hypochromasia 1+, Anisocytosis 1+, Sodium Level 144, Potassium Level 4.3, Chloride Level 102, Carbon Dioxide Level 34H, Anion Gap 8, Blood Urea Nitrogen 16, Creatinine 0.5L, Estimat Glomerular Filtration Rate > 60, Glucose Level 84, Calcium Level 8.0L, Total Bilirubin 0.4 , Aspartate Amino Transf (AST/SGOT) 26, Alanine Aminotransferase (ALT/SGPT) 23, Alkaline Phosphatase 223H, Pro-B-Type Natriuretic Peptide 1936H, Total Protein 4.9L, Albumin 1.3L, Globulin 3.6, Albumin/Globulin Ratio 0.3L Height (Feet): 6 Height (Inches): 2.00 Weight (Pounds): 126 Objective Elderly AA man NCAT (+) trach Coarse BS RRR soft NT abdomen, (+) GT poorly responsive ROSEMARY BURROUGHS November 18, 2016 21:15
[2016-11-18] MEDS: Micafungin 100 MG in NS 110 ML IVPB SCH (22:26)
[2016-11-19 00:05] VITALS: BP 139/85
[2016-11-19] MEDS: Levalbuterol Inh UD 1.25mg/0.5ml HHN PRN ×5 (03:21→23:18)
[2016-11-19 04:00] VITALS: BP 123/73
[2016-11-19] MEDS: Meropenem 1 GM in NS 110 ML IVPB SCH ×3 (05:17→22:16)
[2016-11-19 05:37] LABS: MEAN CORPUSCULAR HEMOGLOBIN 26.9 PG (27.0-31.0); MEAN CORPUSCULAR HGB CONC 30.4 G/DL (32.0-36.0); MEAN CORPUSCULAR VOLUME 89 FL (80-99); MEAN PLATELET VOLUME 6.3 FL (6.5-10.1); PLATELET COUNT 304 K/UL (150-450); RED BLOOD COUNT 3.41 M/UL (4.70-6.10); RED CELL DISTRIBUTION WIDTH 18.5 % (11.6-14.8)
[2016-11-19 05:42] LABS: INR 1.4 (0.9-1.1); PROTHROMBIN TIME 14.4 SEC (9.30-11.50)
[2016-11-19 05:51] LABS: MAGNESIUM 1.9 mg/dL (1.7-2.5); PHOSPHORUS 2.7 mg/dL (2.5-4.8)
[2016-11-19 05:53] LABS: ALANINE AMINOTRANSFERASE 26 U/L (3-41); ALBUMIN/GLOBULIN RATIO 0.3 (1.0-2.7); ANION GAP 9 (5-15); ASPARTATE AMINO TRANSFERASE 30 U/L (5-40); CALCIUM 7.5 mg/dL (8.6-10.2); CARBON DIOXIDE 33 mEQ/L (20-30); CHLORIDE 103 mEQ/L (98-107); CREATININE 0.5 mg/dL (0.7-1.2); GLOMERULAR FILTRATION RATE > 60 mL/min (>60); HEMOLYSIS 1; POTASSIUM 3.6 mEQ/L (3.4-4.9); SODIUM 145 mEQ/L (135-145); TOTAL PROTEIN 5.5 g/dL (6.6-8.7)
[2016-11-19] MEDS: NovoLOG Insulin Flexpen SUBQ SCH ×4 (06:00→18:10)
[2016-11-19 06:11] LABS: WHITE BLOOD COUNT 30.6 K/UL (4.8-10.8)
[2016-11-19] MEDS: Colistin for inhalation INH SCH ×2 (07:16→21:17)
[2016-11-19 08:27] LABS: ANISOCYTOSIS 2+; BAND NEUTROPHILS % (MANUAL) 2 % (0-8); BASOPHILS % (MANUAL) 0 % (0-2); EOSINOPHILS % (MANUAL) 0 % (0-3); HYPOCHROMASIA 2+; LYMPHOCYTES % (MANUAL) 4 % (20-45); NEUTROPHILS % (MANUAL) 88 % (45-75); PLATELET ESTIMATE ADEQUATE; PLATELET MORPHOLOGY NORMAL; TOTAL CELLS COUNTED 100
[2016-11-19 09:03] VITALS: BP 92/57
--- NOTE | 2016-11-19 11:27 | Infectious Diseases Prog Note ---
Assessment/Plan Assessment/Plan Plan ASSESSMENT: 66 y/o male with: // VAP / RUL lung abscess - SCx: MDR ACB and PSA , repeat Scx: PSA - CT 11/14 :Extensive pneumonia involving both lungs as described above. 5-6 cm cavitary focus suspicious for lung abscess in the right upper lobe. // Probable UTI : UCx yeast and VRE // Leukocytosis - worsen ( DVT, probable CA contributing, SP steroids ) // Hypotension SP // Febrile low grade SP // HIV and Hep B/C : neg // Colon mass ro cancer , GI is following CT: Large cecal mass and other polypoid colonic masses, detailed previously , again demonstrated // SP PEG 10/04 // Chronic VDRF SP trach // Severe pulmonary HTN / grade I diastolic dysfunction / mod TR // Pulmonary nodules // Chronic RLE DVT // Tobacco abuse // [facility] resident // Negative MRSA, VRE screens // NKDA // Full Code PLAN: - cont Merrem, Colistin INH , Zyvox and Mycamine d# 11 /14 and Levaquin d# 8 / 42 ( 11/09 SP Vanco d# 6 / 10 and oral Vanco d# 5 ) ( 10/17 SP Ceftazidime d# 14 ) ( 10/13 SP Jairon nebs d# 14 ) ( 10/11 SP Flagyl d# 10 ) ( 10/04 SP oral Vanco d# 3 ) ( 09/24 SP amikacin, invanz d# 5 / 5 ) ( 09/21 SP IV vancomycin d# 2 ) - monitor CBC, temperatures - monitor BMP - monitor CXR - vent support, trach care, aspiration precautions - need for IR to drain the abscess , will defer to Pulm Subjective Allergies: Coded Allergies: No Known Allergies (Unverified , 06/17/16) Subjective afebrile Objective Vital Signs Last 24 Hour Vital Signs Date Time Temp Pulse Resp B/P Pulse Ox O2 Delivery O2 Flow Rate FiO2 11/19/16 10:36 116 16 100 Mechanical Ventilator 40 11/19/16 10:33 110 16 40 11/19/16 10:20 110 16 100 Mechanical Ventilator 40 11/19/16 10:20 40 11/19/16 09:03 97.6 90 16 92/57 99 Mechanical Ventilator 40 11/19/16 09:00 91 16 40 11/19/16 08:45 92 16 99 Mechanical Ventilator 40 11/19/16 08:30 40 11/19/16 08:30 89 16 98 Mechanical Ventilator 40 11/19/16 08:00 50 11/19/16 08:00 102 11/19/16 07:25 103 16 40 11/19/16 05:08 111 18 40 11/19/16 04:00 50 11/19/16 04:00 96.6 108 16 123/73 100 Nasal Cannula 11/19/16 04:00 100 11/19/16 03:21 40 11/19/16 03:21 115 16 99 Mechanical Ventilator 40 11/19/16 03:21 111 16 97 Mechanical Ventilator 40 11/19/16 03:20 106 16 40 11/19/16 00:38 113 17 40 11/19/16 00:05 97.0 109 16 139/85 96 Mechanical Ventilator 40 11/19/16 00:00 50 11/19/16 00:00 113 11/18/16 23:08 115 19 40 11/18/16 21:26 40 11/18/16 21:26 120 16 95 Mechanical Ventilator 40 11/18/16 21:26 126 16 96 Mechanical Ventilator 40 11/18/16 21:21 113 21 40 11/18/16 20:00 97.5 102 16 91/60 100 Nasal Cannula 11/18/16 20:00 50 11/18/16 20:00 106 11/18/16 18:36 40 11/18/16 18:36 122 16 100 Mechanical Ventilator 40 11/18/16 18:36 120 16 100 Mechanical Ventilator 40 11/18/16 18:33 115 16 40 11/18/16 18:17 99.1 11/18/16 17:20 94 16 40 11/18/16 16:00 99 11/18/16 16:00 99.1 99 16 102/64 99 Mechanical Ventilator 40 11/18/16 16:00 40 11/18/16 15:46 100 16 99 Mechanical Ventilator 40 11/18/16 15:46 40 11/18/16 15:00 99 16 40 11/18/16 13:13 101 17 40 11/18/16 12:00 105 11/18/16 12:00 99.4 97 16 100/63 99 Mechanical Ventilator 40 11/18/16 12:00 40 Height (Feet): 6 Height (Inches): 2.00 Weight (Pounds): 126 HEENT: atraumatic Respiratory/Chest: normal breath sounds Cardiovascular: regularly irregular Abdomen: no organomegaly Laboratory Tests Test 11/19/16 03:20 White Blood Count 30.6 K/UL (4.8-10.8) #*H Red Blood Count 3.41 M/UL (4.70-6.10) L Hemoglobin 9.2 G/DL (14.2-18.0) L Hematocrit 30.2 % (42.0-52.0) L Mean Corpuscular Volume 89 FL (80-99) Mean Corpuscular Hemoglobin 26.9 PG (27.0-31.0) L Mean Corpuscular Hemoglobin Concent 30.4 G/DL (32.0-36.0) L Red Cell Distribution Width 18.5 % (11.6-14.8) H Platelet Count 304 K/UL (150-450) Mean Platelet Volume 6.3 FL (6.5-10.1) L Neutrophils (%) (Auto) % (45.0-75.0) Lymphocytes (%) (Auto) % (20.0-45.0) Monocytes (%) (Auto) % (1.0-10.0) Eosinophils (%) (Auto) % (0.0-3.0) Basophils (%) (Auto) % (0.0-2.0) Differential Total Cells Counted 100 Neutrophils % (Manual) 88 % (45-75) H Lymphocytes % (Manual) 4 % (20-45) L Monocytes % (Manual) 6 % (1-10) Eosinophils % (Manual) 0 % (0-3) Basophils % (Manual) 0 % (0-2) Band Neutrophils 2 % (0-8) Platelet Estimate Adequate Platelet Morphology Normal Hypochromasia 2+ Anisocytosis 2+ Prothrombin Time 14.4 SEC (9.30-11.50) H Prothromb Time International Ratio 1.4 (0.9-1.1) H Activated Partial Thromboplast Time 34 SEC (23-33) H Sodium Level 145 mEQ/L (135-145) Potassium Level 3.6 mEQ/L (3.4-4.9) Chloride Level 103 mEQ/L (98-107) Carbon Dioxide Level 33 mEQ/L (20-30) H Anion Gap 9 (5-15) Blood Urea Nitrogen 14 mg/dL (7-23) Creatinine 0.5 mg/dL (0.7-1.2) L Estimat Glomerular Filtration Rate > 60 mL/min (>60) Glucose Level 106 mg/dL (74-106) Calcium Level 7.5 mg/dL (8.6-10.2) L Phosphorus Level 2.7 mg/dL (2.5-4.8) Magnesium Level 1.9 mg/dL (1.7-2.5) Total Bilirubin 0.5 mg/dL (0.0-1.2) Aspartate Amino Transf (AST/SGOT) 30 U/L (5-40) Alanine Aminotransferase (ALT/SGPT) 26 U/L (3-41) Alkaline Phosphatase 273 U/L (40-129) H Total Protein 5.5 g/dL (6.6-8.7) L Albumin 1.5 g/dL (3.5-5.2) L Globulin 4.0 g/dL Albumin/Globulin Ratio 0.3 (1.0-2.7) L Current Medications Medications (Trade) Dose Ordered Sig/Shraddha Route PRN Reason Start Time Stop Time Status Last Admin Dose Admin Acetaminophen (Tylenol) 650 mg Q4H PRN ORAL fever>100.5 11/02/16 17:00 12/02/16 16:59 Acetaminophen 650 mg 650 mg Q4H PRN GT headache 11/03/16 08:00 12/03/16 07:59 11/18/16 17:47 Colistimethate Sodium 150 mg 150 mg Q12HR@10,22 INH 11/09/16 22:00 11/22/16 23:59 11/19/16 07:16 Dextrose (Dextrose 50%) STAT PRN IV Hypoglycemia 11/02/16 17:00 12/02/16 16:59 Insulin Aspart (NovoLOG) start when feeding started Q6HR SUBQ 11/02/16 18:00 12/02/16 17:59 11/19/16 00:00 Lansoprazole (Prevacid) 30 mg DAILY GT 10/31/16 09:00 11/30/16 08:59 11/19/16 09:30 Levalbuterol HCl (Xopenex) 1.25 mg Q4H PRN HHN Shortness of Breath 11/17/16 16:30 11/22/16 16:29 11/19/16 10:30 Levofloxacin 150 ml @ 100 mls/hr Q24H IVPB 11/11/16 14:30 12/22/16 14:29 11/18/16 15:50 Linezolid (Zyvox) 300 ml @ 300 mls/hr Q12HR IVPB 11/09/16 21:00 11/22/16 23:59 11/19/16 09:29 Meropenem/Sodium Chloride (Merrem/Sodium Chloride) 110 ml @ 220 mls/hr Q8HR IVPB 11/15/16 22:00 11/22/16 21:59 11/19/16 05:17 Metoclopramide HCl (Reglan) 10 mg THREE TIMES A DAY GT 10/24/16 19:00 11/23/16 18:59 11/19/16 09:30 Micafungin Sodium 100 mg/Sodium Chloride 110 ml @ 110 mls/hr Q24H IVPB 11/10/16 20:00 11/23/16 23:59 11/18/16 22:26 Ondansetron HCl (Zofran) 4 mg Q6H PRN IVP Nausea & Vomiting 11/02/16 17:00 12/02/16 16:59 Polyethylene Glycol (Miralax) 17 gm DAILYPRN PRN GT Constipation 10/25/16 01:00 11/24/16 00:59 11/03/16 00:00 Sodium Chloride 500 ml @ 999 mls/hr PRN PRN IVPB For hypotension 11/09/16 17:15 12/09/16 17:14 11/10/16 22:00 Sodium Chloride 1,000 ml @ 75 mls/hr [id number] IV 11/11/16 01:00 12/11/16 00:59 11/19/16 09:31 KIMBERLEE HINKLE M.D. November 19, 2016 11:26
[2016-11-19 12:00] VITALS: BP 100/56
--- NOTE | 2016-11-19 12:09 | Pulmonology Progress Note ---
Assessment/Plan Problems: (1) Lung abscess (2) Severe sepsis (3) Abdominal distention (4) Respiratory failure (5) COPD exacerbation (6) Emphysema of lung (7) Colonic mass Assessment/Plan cxr reviewed, extensive right infiltrate wbc rising again 30k today cont Merrem, Colistin INH , Zyvox and Mycamine d# 8 / and Levaquin d# wbc decreasing slowly continue current vent setting, titrate fio2 to sat of 92% not tolerating weaning Subjective ROS Limited/Unobtainable: No Constitutional: Reports: no symptoms HEENT: Repors: no symptoms Allergies: Coded Allergies: No Known Allergies (Unverified , 06/17/16) Objective Last 24 Hour Vital Signs Date Time Temp Pulse Resp B/P Pulse Ox O2 Delivery O2 Flow Rate FiO2 11/19/16 10:36 116 16 100 Mechanical Ventilator 40 11/19/16 10:33 110 16 40 11/19/16 10:20 110 16 100 Mechanical Ventilator 40 11/19/16 10:20 40 11/19/16 09:03 97.6 90 16 92/57 99 Mechanical Ventilator 40 11/19/16 09:00 91 16 40 11/19/16 08:45 92 16 99 Mechanical Ventilator 40 11/19/16 08:30 40 11/19/16 08:30 89 16 98 Mechanical Ventilator 40 11/19/16 08:00 50 11/19/16 08:00 102 11/19/16 07:25 103 16 40 11/19/16 05:08 111 18 40 11/19/16 04:00 50 11/19/16 04:00 96.6 108 16 123/73 100 Nasal Cannula 11/19/16 04:00 100 11/19/16 03:21 40 11/19/16 03:21 115 16 99 Mechanical Ventilator 40 11/19/16 03:21 111 16 97 Mechanical Ventilator 40 11/19/16 03:20 106 16 40 11/19/16 00:38 113 17 40 11/19/16 00:05 97.0 109 16 139/85 96 Mechanical Ventilator 40 11/19/16 00:00 50 11/19/16 00:00 113 11/18/16 23:08 115 19 40 11/18/16 21:26 40 11/18/16 21:26 120 16 95 Mechanical Ventilator 40 11/18/16 21:26 126 16 96 Mechanical Ventilator 40 11/18/16 21:21 113 21 40 11/18/16 20:00 97.5 102 16 91/60 100 Nasal Cannula 11/18/16 20:00 50 11/18/16 20:00 106 11/18/16 18:36 40 11/18/16 18:36 122 16 100 Mechanical Ventilator 40 11/18/16 18:36 120 16 100 Mechanical Ventilator 40 11/18/16 18:33 115 16 40 11/18/16 18:17 99.1 11/18/16 17:20 94 16 40 11/18/16 16:00 99 11/18/16 16:00 99.1 99 16 102/64 99 Mechanical Ventilator 40 11/18/16 16:00 40 11/18/16 15:46 100 16 99 Mechanical Ventilator 40 11/18/16 15:46 40 11/18/16 15:00 99 16 40 11/18/16 13:13 101 17 40 Intake and Output 11/18/16 11/19/16 19:00 07:00 Intake Total 1760 ml 1837.5 ml Output Total 550 ml 200 ml Balance 1210 ml 1637.5 ml Free Water 450 ml 150 ml IV Total 660 ml 1242.5 ml Tube Feeding 650 ml 195 ml Blood Product 250 ml Output Urine Total 550 ml 200 ml # Voids 1 # Bowel Movements 1 Objective Status: awake HEENT: atraumatic, normocephalic Lungs: clear, decreased breath sounds Heart: HR/BP stable Abdomen: soft, non-tender Extremities: no C/C/E, edema Laboratory Tests 11/19/16 03:20: White Blood Count 30.6#*H, Red Blood Count 3.41L, Hemoglobin 9.2L, Hematocrit 30.2L, Mean Corpuscular Volume 89, Mean Corpuscular Hemoglobin 26.9L, Mean Corpuscular Hemoglobin Concent 30.4L, Red Cell Distribution Width 18.5H, Platelet Count 304, Mean Platelet Volume 6.3L, Neutrophils (%) (Auto) , Lymphocytes (%) (Auto) , Monocytes (%) (Auto) , Eosinophils (%) (Auto) , Basophils (%) (Auto) , Differential Total Cells Counted 100, Neutrophils % ( Manual) 88H, Lymphocytes % (Manual) 4L, Monocytes % (Manual) 6, Eosinophils % ( Manual) 0, Basophils % (Manual) 0, Band Neutrophils 2, Platelet Estimate Adequate, Platelet Morphology Normal, Hypochromasia 2+, Anisocytosis 2+, Prothrombin Time 14.4H, Prothromb Time International Ratio 1.4H, Activated Partial Thromboplast Time 34H, Sodium Level 145, Potassium Level 3.6, Chloride Level 103, Carbon Dioxide Level 33H, Anion Gap 9, Blood Urea Nitrogen 14, Creatinine 0.5L, Estimat Glomerular Filtration Rate > 60, Glucose Level 106, Calcium Level 7.5L, Phosphorus Level 2.7, Magnesium Level 1.9, Total Bilirubin 0.5, Aspartate Amino Transf (AST/SGOT) 30, Alanine Aminotransferase (ALT/SGPT) 26, Alkaline Phosphatase 273H, Total Protein 5.5L, Albumin 1.5L, Globulin 4.0, Albumin/Globulin Ratio 0.3L Current Medications Medications (Trade) Dose Ordered Sig/Shraddha Route PRN Reason Start Time Stop Time Status Last Admin Dose Admin Acetaminophen (Tylenol) 650 mg Q4H PRN ORAL fever>100.5 11/02/16 17:00 12/02/16 16:59 Acetaminophen 650 mg 650 mg Q4H PRN GT headache 11/03/16 08:00 12/03/16 07:59 11/18/16 17:47 Colistimethate Sodium 150 mg 150 mg Q12HR@10,22 INH 11/09/16 22:00 11/22/16 23:59 11/19/16 07:16 Dextrose (Dextrose 50%) STAT PRN IV Hypoglycemia 11/02/16 17:00 12/02/16 16:59 Insulin Aspart (NovoLOG) start when feeding started Q6HR SUBQ 11/02/16 18:00 12/02/16 17:59 11/19/16 00:00 Lansoprazole (Prevacid) 30 mg DAILY GT 10/31/16 09:00 11/30/16 08:59 11/19/16 09:30 Levalbuterol HCl (Xopenex) 1.25 mg Q4H PRN HHN Shortness of Breath 11/17/16 16:30 11/22/16 16:29 11/19/16 10:30 Levofloxacin 150 ml @ 100 mls/hr Q24H IVPB 11/11/16 14:30 12/22/16 14:29 11/18/16 15:50 Linezolid (Zyvox) 300 ml @ 300 mls/hr Q12HR IVPB 11/09/16 21:00 11/22/16 23:59 11/19/16 09:29 Meropenem/Sodium Chloride (Merrem/Sodium Chloride) 110 ml @ 220 mls/hr Q8HR IVPB 11/15/16 22:00 11/22/16 21:59 11/19/16 05:17 Metoclopramide HCl (Reglan) 10 mg THREE TIMES A DAY GT 10/24/16 19:00 11/23/16 18:59 11/19/16 09:30 Micafungin Sodium 100 mg/Sodium Chloride 110 ml @ 110 mls/hr Q24H IVPB 11/10/16 20:00 11/23/16 23:59 11/18/16 22:26 Ondansetron HCl (Zofran) 4 mg Q6H PRN IVP Nausea & Vomiting 11/02/16 17:00 12/02/16 16:59 Polyethylene Glycol (Miralax) 17 gm DAILYPRN PRN GT Constipation 10/25/16 01:00 11/24/16 00:59 11/03/16 00:00 Sodium Chloride 500 ml @ 999 mls/hr PRN PRN IVPB For hypotension 11/09/16 17:15 12/09/16 17:14 11/10/16 22:00 Sodium Chloride 1,000 ml @ 75 mls/hr [id number] IV 11/11/16 01:00 12/11/16 00:59 11/19/16 09:31 REN WRIGHT November 19, 2016 12:09
[2016-11-19 16:00] VITALS: BP 130/93
[2016-11-19] MEDS ORDERED: NS 275ml ONE (16:20)
[2016-11-19] MEDS ORDERED: Tubing IV Secondary IV ONE (16:20)
[2016-11-19] MEDS ORDERED: Tubing Blood Filter IV ONE (16:20)
[2016-11-19] MEDS ORDERED: Sterile Water Irrig 1000ml IRRIG ONE (16:20)
--- NOTE | 2016-11-19 16:51 | Cardiac Electrophysiology PN ---
Assessment/Plan Assessment/Plan 1. Sinus tachycardia due to sepsis now better in 90s 2. Hypotension. Due to sepsis and anemia. On ABx.S/P PRBC 11/18/16 .DC IV fluid. 3. Severe COPD and pulmonary hypertension 4. Ventilator-dependant respiratory failure, status post tracheostomy. 5. Dysphagia, status post percutaneous endoscopic gastrostomy placement. 6. Sepsis due to MDR ACB and PSA , on broad-spectrum intravenous antibiotics and antifungal per ID. 7. Lung abscess 8. Colonic mass and anemia.S/P transfusion. Follow up Dr Arevalo and Yadira 9. Generalized edema. Not dehydrated or azotemic. DC IV fluid. KATHY RN Subjective Subjective On Vent via tracheostomy with PEG on JORDAN. Remained in SR .Had Left arm PICC line yesterday and got one unit PRBC transfusion on 11/18/16 Objective Last 24 Hour Vital Signs Date Time Temp Pulse Resp B/P Pulse Ox O2 Delivery O2 Flow Rate FiO2 11/19/16 16:45 94 16 40 11/19/16 14:34 110 16 40 11/19/16 14:34 109 16 97 Mechanical Ventilator 40 11/19/16 14:34 40 11/19/16 12:39 85 16 40 11/19/16 12:00 91 11/19/16 12:00 96.4 88 18 100/56 96 Mechanical Ventilator 40 11/19/16 12:00 50 11/19/16 10:36 116 16 100 Mechanical Ventilator 40 11/19/16 10:33 110 16 40 11/19/16 10:20 110 16 100 Mechanical Ventilator 40 11/19/16 10:20 40 11/19/16 09:03 97.6 90 16 92/57 99 Mechanical Ventilator 40 11/19/16 09:00 91 16 40 11/19/16 08:45 92 16 99 Mechanical Ventilator 40 11/19/16 08:30 40 11/19/16 08:30 89 16 98 Mechanical Ventilator 40 11/19/16 08:00 50 11/19/16 08:00 102 11/19/16 07:25 103 16 40 11/19/16 05:08 111 18 40 11/19/16 04:00 50 11/19/16 04:00 96.6 108 16 123/73 100 Nasal Cannula 11/19/16 04:00 100 11/19/16 03:21 40 11/19/16 03:21 115 16 99 Mechanical Ventilator 40 11/19/16 03:21 111 16 97 Mechanical Ventilator 40 11/19/16 03:20 106 16 40 11/19/16 00:38 113 17 40 11/19/16 00:05 97.0 109 16 139/85 96 Mechanical Ventilator 40 11/19/16 00:00 50 11/19/16 00:00 113 11/18/16 23:08 115 19 40 11/18/16 21:26 40 11/18/16 21:26 120 16 95 Mechanical Ventilator 40 11/18/16 21:26 126 16 96 Mechanical Ventilator 40 11/18/16 21:21 113 21 40 11/18/16 20:00 97.5 102 16 91/60 100 Nasal Cannula 11/18/16 20:00 50 11/18/16 20:00 106 11/18/16 18:36 40 11/18/16 18:36 122 16 100 Mechanical Ventilator 40 11/18/16 18:36 120 16 100 Mechanical Ventilator 40 11/18/16 18:33 115 16 40 11/18/16 18:17 99.1 11/18/16 17:20 94 16 40 Intake and Output 11/18/16 11/19/16 18:59 06:59 Intake Total 1770 ml 1827.5 ml Output Total 550 ml 200 ml Balance 1220 ml 1627.5 ml Free Water 450 ml 150 ml IV Total 735 ml 1167.5 ml Tube Feeding 585 ml 260 ml Blood Product 250 ml Output Urine Total 550 ml 200 ml # Voids 1 # Bowel Movements 1 Laboratory Tests Test 11/19/16 03:20 White Blood Count 30.6 K/UL (4.8-10.8) #*H Red Blood Count 3.41 M/UL (4.70-6.10) L Hemoglobin 9.2 G/DL (14.2-18.0) L Hematocrit 30.2 % (42.0-52.0) L Mean Corpuscular Volume 89 FL (80-99) Mean Corpuscular Hemoglobin 26.9 PG (27.0-31.0) L Mean Corpuscular Hemoglobin Concent 30.4 G/DL (32.0-36.0) L Red Cell Distribution Width 18.5 % (11.6-14.8) H Platelet Count 304 K/UL (150-450) Mean Platelet Volume 6.3 FL (6.5-10.1) L Neutrophils (%) (Auto) % (45.0-75.0) Lymphocytes (%) (Auto) % (20.0-45.0) Monocytes (%) (Auto) % (1.0-10.0) Eosinophils (%) (Auto) % (0.0-3.0) Basophils (%) (Auto) % (0.0-2.0) Differential Total Cells Counted 100 Neutrophils % (Manual) 88 % (45-75) H Lymphocytes % (Manual) 4 % (20-45) L Monocytes % (Manual) 6 % (1-10) Eosinophils % (Manual) 0 % (0-3) Basophils % (Manual) 0 % (0-2) Band Neutrophils 2 % (0-8) Platelet Estimate Adequate Platelet Morphology Normal Hypochromasia 2+ Anisocytosis 2+ Prothrombin Time 14.4 SEC (9.30-11.50) H Prothromb Time International Ratio 1.4 (0.9-1.1) H Activated Partial Thromboplast Time 34 SEC (23-33) H Sodium Level 145 mEQ/L (135-145) Potassium Level 3.6 mEQ/L (3.4-4.9) Chloride Level 103 mEQ/L (98-107) Carbon Dioxide Level 33 mEQ/L (20-30) H Anion Gap 9 (5-15) Blood Urea Nitrogen 14 mg/dL (7-23) Creatinine 0.5 mg/dL (0.7-1.2) L Estimat Glomerular Filtration Rate > 60 mL/min (>60) Glucose Level 106 mg/dL (74-106) Calcium Level 7.5 mg/dL (8.6-10.2) L Phosphorus Level 2.7 mg/dL (2.5-4.8) Magnesium Level 1.9 mg/dL (1.7-2.5) Total Bilirubin 0.5 mg/dL (0.0-1.2) Aspartate Amino Transf (AST/SGOT) 30 U/L (5-40) Alanine Aminotransferase (ALT/SGPT) 26 U/L (3-41) Alkaline Phosphatase 273 U/L (40-129) H Total Protein 5.5 g/dL (6.6-8.7) L Albumin 1.5 g/dL (3.5-5.2) L Globulin 4.0 g/dL Albumin/Globulin Ratio 0.3 (1.0-2.7) L Objective HEAD AND NECK: No jugular venous distention, tracheostomy intact. LUNGS: Coarse rhonchi bilaterally. CARDIOVASCULAR: Tachycardic S1 and S2 with no gallop or murmur. ABDOMEN: Soft. G-tube intact. EXTREMITIES: Bilateral arm edema.PICC line in place. OSWALD HILLS November 19, 2016 16:51
--- NOTE | 2016-11-19 16:54 | Internal Med Progress Note ---
Subjective Date of Service: November 19, 2016 Physician Name VerdinTadeo Attending Physician Steve Rader MD Current Medications Medications (Trade) Dose Ordered Sig/Shraddha Route PRN Reason Start Time Stop Time Status Last Admin Dose Admin Acetaminophen (Tylenol) 650 mg Q4H PRN ORAL fever>100.5 11/02/16 17:00 12/02/16 16:59 Acetaminophen 650 mg 650 mg Q4H PRN GT headache 11/03/16 08:00 12/03/16 07:59 11/18/16 17:47 Colistimethate Sodium 150 mg 150 mg Q12HR@10,22 INH 11/09/16 22:00 11/22/16 23:59 11/19/16 07:16 Dextrose (Dextrose 50%) STAT PRN IV Hypoglycemia 11/02/16 17:00 12/02/16 16:59 Insulin Aspart (NovoLOG) start when feeding started Q6HR SUBQ 11/02/16 18:00 12/02/16 17:59 11/19/16 13:23 Lansoprazole (Prevacid) 30 mg DAILY GT 10/31/16 09:00 11/30/16 08:59 11/19/16 09:30 Levalbuterol HCl (Xopenex) 1.25 mg Q4H PRN HHN Shortness of Breath 11/17/16 16:30 11/22/16 16:29 11/19/16 14:32 Levofloxacin 150 ml @ 100 mls/hr Q24H IVPB 11/11/16 14:30 12/22/16 14:29 11/19/16 14:51 Linezolid (Zyvox) 300 ml @ 300 mls/hr Q12HR IVPB 11/09/16 21:00 11/22/16 23:59 11/19/16 09:29 Meropenem/Sodium Chloride (Merrem/Sodium Chloride) 110 ml @ 220 mls/hr Q8HR IVPB 11/15/16 22:00 11/22/16 21:59 11/19/16 13:23 Metoclopramide HCl (Reglan) 10 mg THREE TIMES A DAY GT 10/24/16 19:00 11/23/16 18:59 11/19/16 13:24 Micafungin Sodium 100 mg/Sodium Chloride 110 ml @ 110 mls/hr Q24H IVPB 11/10/16 20:00 11/23/16 23:59 11/18/16 22:26 Ondansetron HCl (Zofran) 4 mg Q6H PRN IVP Nausea & Vomiting 11/02/16 17:00 12/02/16 16:59 Polyethylene Glycol (Miralax) 17 gm DAILYPRN PRN GT Constipation 10/25/16 01:00 11/24/16 00:59 11/03/16 00:00 Sodium Chloride 500 ml @ 999 mls/hr PRN PRN IVPB For hypotension 11/09/16 17:15 12/09/16 17:14 11/10/16 22:00 Sodium Chloride 1,000 ml @ 75 mls/hr [id number] IV 11/11/16 01:00 12/11/16 00:59 11/19/16 09:31 Allergies: Coded Allergies: No Known Allergies (Unverified , 06/17/16) ROS Limited/Unobtainable: No Constitutional: Reports: no symptoms HEENT: Reports: no symptoms Cardiovascular: Reports: no symptoms Respiratory: Reports: cough, shortness of breath Gastrointestinal/Abdominal: Reports: no symptoms Genitourinary: Reports: no symptoms Neurologic/Psychiatric: Reports: no symptoms Subjective 66 YO M admitted with respiratory failure. JORDAN. Back on [facility] vent. Cover for Int Med-Dr Rader. Objective Last Vital Signs Date Time Temp Pulse Resp B/P Pulse Ox O2 Delivery O2 Flow Rate FiO2 11/19/16 16:45 94 16 40 11/19/16 14:34 97 Mechanical Ventilator 11/19/16 12:00 96.4 100/56 11/12/16 16:00 2.0 Laboratory Tests Test 11/19/16 03:20 White Blood Count 30.6 K/UL (4.8-10.8) #*H Red Blood Count 3.41 M/UL (4.70-6.10) L Hemoglobin 9.2 G/DL (14.2-18.0) L Hematocrit 30.2 % (42.0-52.0) L Mean Corpuscular Volume 89 FL (80-99) Mean Corpuscular Hemoglobin 26.9 PG (27.0-31.0) L Mean Corpuscular Hemoglobin Concent 30.4 G/DL (32.0-36.0) L Red Cell Distribution Width 18.5 % (11.6-14.8) H Platelet Count 304 K/UL (150-450) Mean Platelet Volume 6.3 FL (6.5-10.1) L Neutrophils (%) (Auto) % (45.0-75.0) Lymphocytes (%) (Auto) % (20.0-45.0) Monocytes (%) (Auto) % (1.0-10.0) Eosinophils (%) (Auto) % (0.0-3.0) Basophils (%) (Auto) % (0.0-2.0) Differential Total Cells Counted 100 Neutrophils % (Manual) 88 % (45-75) H Lymphocytes % (Manual) 4 % (20-45) L Monocytes % (Manual) 6 % (1-10) Eosinophils % (Manual) 0 % (0-3) Basophils % (Manual) 0 % (0-2) Band Neutrophils 2 % (0-8) Platelet Estimate Adequate Platelet Morphology Normal Hypochromasia 2+ Anisocytosis 2+ Prothrombin Time 14.4 SEC (9.30-11.50) H Prothromb Time International Ratio 1.4 (0.9-1.1) H Activated Partial Thromboplast Time 34 SEC (23-33) H Sodium Level 145 mEQ/L (135-145) Potassium Level 3.6 mEQ/L (3.4-4.9) Chloride Level 103 mEQ/L (98-107) Carbon Dioxide Level 33 mEQ/L (20-30) H Anion Gap 9 (5-15) Blood Urea Nitrogen 14 mg/dL (7-23) Creatinine 0.5 mg/dL (0.7-1.2) L Estimat Glomerular Filtration Rate > 60 mL/min (>60) Glucose Level 106 mg/dL (74-106) Calcium Level 7.5 mg/dL (8.6-10.2) L Phosphorus Level 2.7 mg/dL (2.5-4.8) Magnesium Level 1.9 mg/dL (1.7-2.5) Total Bilirubin 0.5 mg/dL (0.0-1.2) Aspartate Amino Transf (AST/SGOT) 30 U/L (5-40) Alanine Aminotransferase (ALT/SGPT) 26 U/L (3-41) Alkaline Phosphatase 273 U/L (40-129) H Total Protein 5.5 g/dL (6.6-8.7) L Albumin 1.5 g/dL (3.5-5.2) L Globulin 4.0 g/dL Albumin/Globulin Ratio 0.3 (1.0-2.7) L Intake and Output 11/18/16 11/19/16 18:59 06:59 Intake Total 1770 ml 1827.5 ml Output Total 550 ml 200 ml Balance 1220 ml 1627.5 ml Free Water 450 ml 150 ml IV Total 735 ml 1167.5 ml Tube Feeding 585 ml 260 ml Blood Product 250 ml Output Urine Total 550 ml 200 ml # Voids 1 # Bowel Movements 1 Objective General Appearance: moderate distress, thin EENT: PERRL/EOMI, normal ENT inspection Neck: non-tender, normal alignment, supple Cardiovascular: normal peripheral pulses, normal rate, regular rhythm, no gallop/murmur, no JVD Respiratory/Chest: Mech vent; respiratory distress, crackles/rales, rhonchi - bilaterally, expiratory wheezing Abdomen: non tender, soft, no organomegaly, no mass, decreased bowel sounds Extremities: normal range of motion Skin: normal pigmentation, warm/dry Assessment/Plan Problem List: (1) Lung nodule (2) DVT (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 (3) Acute respiratory failure Assessment & Plan: S/P tracheostomy 10/03/16. Cont vent per pulm (4) COPD exacerbation Assessment & Plan: Continue duoneb. Continue vent per pulmonary. (5) Pneumonia Assessment & Plan: Pseudamonas. New RLL consolidation. Continue colistin inh , micafungin, linezolid, levaquin and meropenem per ID (6) Leukocytosis Assessment & Plan: Worsening. Await Culture results. Start meropenem, levaquin, micafungin, colistin (inh) and linezolid per ID (7) Dysphagia Assessment & Plan: See GI consult- S/P PEG 10/04/16. (8) Hypoglycemia Assessment & Plan: D50 prn; decrease insulin sliding scale. (9) Dysuria Assessment & Plan: D/C garcia cath. (10) Severe sepsis Assessment & Plan: Blood cultures X2. Cont meropenem, colistin Inh, levaquin, micafungin and linezolid per ID. (11) Hypotension Assessment & Plan: ICU status for pressors, (12) Gastric mass (13) Mass of colon Assessment & Plan: Cecum and colon masses. See GI note. (14) UTI (urinary tract infection) due to Enterococcus Assessment & Plan: Love. On micafungin. See ID note. (15) Empyema Assessment & Plan: Possible per pulmonary. Cont Micafungin, meropenem, colistin (inh) and linezolid per ID (16) Anemia Assessment & Plan: S/P transfusion 1 unit PRBC Assessment/Plan Await placement @ [facility] acute care fac ?[facility]? TADEO VERDIN November 19, 2016 16:54
[2016-11-19 20:00] VITALS: BP 104/67
[2016-11-19] MEDS: Micafungin 100 MG in NS 110 ML IVPB SCH (20:08)
[2016-11-20] VITALS: BP 108/75
[2016-11-20 04:00] VITALS: BP 131/84
[2016-11-20 05:32] LABS: MEAN CORPUSCULAR HEMOGLOBIN 27.7 PG (27.0-31.0); MEAN CORPUSCULAR HGB CONC 30.7 G/DL (32.0-36.0); MEAN CORPUSCULAR VOLUME 90 FL (80-99); PLATELET COUNT 286 K/UL (150-450); RED BLOOD COUNT 3.46 M/UL (4.70-6.10)
[2016-11-20 05:39] LABS: WHITE BLOOD COUNT 24.3 K/UL (4.8-10.8)
[2016-11-20 06:04] LABS: ALANINE AMINOTRANSFERASE 25 U/L (3-41); ALBUMIN/GLOBULIN RATIO 0.4 (1.0-2.7); ANION GAP 6 (5-15); ASPARTATE AMINO TRANSFERASE 33 U/L (5-40); CALCIUM 7.9 mg/dL (8.6-10.2); CARBON DIOXIDE 35 mEQ/L (20-30); CHLORIDE 102 mEQ/L (98-107); CREATININE 0.4 mg/dL (0.7-1.2); GLOMERULAR FILTRATION RATE > 60 mL/min (>60); HEMOLYSIS 0; PHOSPHORUS 2.5 mg/dL (2.5-4.8); POTASSIUM 3.8 mEQ/L (3.4-4.9); SODIUM 143 mEQ/L (135-145); TOTAL PROTEIN 5.5 g/dL (6.6-8.7)
[2016-11-20] MEDS: Meropenem 1 GM in NS 110 ML IVPB SCH ×3 (06:06→21:27)
[2016-11-20] MEDS: NovoLOG Insulin Flexpen SUBQ SCH ×5 (06:13→23:27)
[2016-11-20] MEDS: Levalbuterol Inh UD 1.25mg/0.5ml HHN PRN ×3 (07:04→20:01)
[2016-11-20 08:00] VITALS: BP 110/68
[2016-11-20] MEDS: Colistin for inhalation INH SCH ×2 (09:14→21:53)
[2016-11-20 09:52] LABS: ANISOCYTOSIS 2+; BAND NEUTROPHILS % (MANUAL) 0 % (0-8); BASOPHILS % (MANUAL) 0 % (0-2); EOSINOPHILS % (MANUAL) 0 % (0-3); LYMPHOCYTES % (MANUAL) 7 % (20-45); NEUTROPHILS % (MANUAL) 89 % (45-75); PLATELET ESTIMATE ADEQUATE; PLATELET MORPHOLOGY NORMAL; TOTAL CELLS COUNTED 100
[2016-11-20 09:54] LABS: HYPOCHROMASIA 1+
--- NOTE | 2016-11-20 11:47 | Pulmonology Progress Note ---
Assessment/Plan Problems: (1) Lung abscess (2) Severe sepsis (3) Abdominal distention (4) Respiratory failure (5) COPD exacerbation (6) Emphysema of lung (7) Colonic mass Assessment/Plan Respiratory: monitor respiratory rate, adjust FIO2, CXR Cardiac: continue pressors, continue to monitor HR/BP Renal: F/U I&O, keep IV fluid, check electrolytes Infectious Disease: check cultures, continue antibiotics Gastrointestinal: continue feedings/current rate Endocrine: monitor blood sugar, check TSH, continue sliding scale insulin Hematologic: monitor H/H, transfuse if hgb<8.5 Neurologic: PRN Ativan, PRN Morphine, keep patient comfortable Affect: PRN ativan Time Spent (Minutes): 40 Notes 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, 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, 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, 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, 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 Subjective ROS Limited/Unobtainable: No Allergies: Coded Allergies: No Known Allergies (Unverified , 06/17/16) Objective Last 24 Hour Vital Signs Date Time Temp Pulse Resp B/P Pulse Ox O2 Delivery O2 Flow Rate FiO2 11/20/16 11:09 95 18 40 11/20/16 09:15 90 17 40 11/20/16 08:00 97.5 94 16 110/68 100 Mechanical Ventilator 40 11/20/16 07:05 103 16 40 11/20/16 05:15 101 16 40 11/20/16 04:00 101 11/20/16 04:00 50 11/20/16 04:00 98.0 97 16 131/84 100 Mechanical Ventilator 40 11/20/16 03:20 89 17 40 11/20/16 00:55 83 16 40 11/20/16 00:00 50 11/20/16 00:00 98.3 98 16 108/75 99 Mechanical Ventilator 40 11/20/16 00:00 101 11/19/16 23:19 103 16 100 Mechanical Ventilator 40 11/19/16 23:19 40 11/19/16 23:18 103 16 97 Mechanical Ventilator 40 11/19/16 23:08 112 16 40 11/19/16 21:25 40 11/19/16 21:25 119 16 100 Mechanical Ventilator 40 11/19/16 21:23 111 16 100 Mechanical Ventilator 40 11/19/16 21:21 98 17 40 11/19/16 20:00 98.0 105 16 104/67 97 Mechanical Ventilator 40 11/19/16 20:00 103 11/19/16 20:00 50 11/19/16 19:22 113 16 100 Mechanical Ventilator 40 11/19/16 19:22 40 11/19/16 19:17 109 17 95 Mechanical Ventilator 40 11/19/16 19:15 109 18 40 11/19/16 16:45 94 16 40 11/19/16 16:00 98 11/19/16 16:00 50 11/19/16 16:00 97.9 110 18 130/93 96 Mechanical Ventilator 40 11/19/16 14:34 110 16 40 11/19/16 14:34 109 16 97 Mechanical Ventilator 40 11/19/16 14:34 40 11/19/16 12:39 85 16 40 11/19/16 12:00 91 11/19/16 12:00 96.4 88 18 100/56 96 Mechanical Ventilator 40 11/19/16 12:00 50 Intake and Output 11/19/16 11/20/16 19:00 07:00 Intake Total 1850 ml 710 ml Output Total 350 ml 600 ml Balance 1500 ml 110 ml Free Water 750 ml 450 ml IV Total 450 ml Tube Feeding 650 ml 260 ml Output Urine Total 350 ml 600 ml Objective Status: awake HEENT: atraumatic, normocephalic Lungs: clear, decreased breath sounds Heart: HR/BP stable Abdomen: soft, non-tender Extremities: no C/C/E, edema Microbiology Date/Time Source Procedure Growth Status 11/19/16 20:30 Stool Clostridium difficile Toxin Assay - Final Complete Laboratory Tests 11/20/16 04:00: White Blood Count 24.3*H, Red Blood Count 3.46L, Hemoglobin 9.6L, Hematocrit 31.3L, Mean Corpuscular Volume 90, Mean Corpuscular Hemoglobin 27.7, Mean Corpuscular Hemoglobin Concent 30.7L, Red Cell Distribution Width 19.0H, Platelet Count 286, Mean Platelet Volume 7.0, Neutrophils (%) (Auto) , Lymphocytes (%) (Auto) , Monocytes (%) (Auto) , Eosinophils (%) (Auto) , Basophils (%) (Auto) , Differential Total Cells Counted 100, Neutrophils % ( Manual) 89H, Lymphocytes % (Manual) 7L, Monocytes % (Manual) 4, Eosinophils % ( Manual) 0, Basophils % (Manual) 0, Band Neutrophils 0, Platelet Estimate Adequate, Platelet Morphology Normal, Hypochromasia 1+, Anisocytosis 2+, Sodium Level 143, Potassium Level 3.8, Chloride Level 102, Carbon Dioxide Level 35H, Anion Gap 6, Blood Urea Nitrogen 13, Creatinine 0.4L, Estimat Glomerular Filtration Rate > 60, Glucose Level 101, Calcium Level 7.9L, Phosphorus Level 2.5, Magnesium Level 2.0, Total Bilirubin 0.2, Aspartate Amino Transf (AST/SGOT ) 33, Alanine Aminotransferase (ALT/SGPT) 25, Alkaline Phosphatase 261H, Total Protein 5.5L, Albumin 1.6L, Globulin 3.9, Albumin/Globulin Ratio 0.4L Current Medications Medications (Trade) Dose Ordered Sig/Shraddha Route PRN Reason Start Time Stop Time Status Last Admin Dose Admin Acetaminophen (Tylenol) 650 mg Q4H PRN ORAL fever>100.5 11/02/16 17:00 12/02/16 16:59 Acetaminophen 650 mg 650 mg Q4H PRN GT headache 11/03/16 08:00 12/03/16 07:59 11/18/16 17:47 Colistimethate Sodium 150 mg 150 mg Q12HR@10,22 INH 11/09/16 22:00 11/22/16 23:59 11/20/16 09:14 Dextrose (Dextrose 50%) STAT PRN IV Hypoglycemia 11/02/16 17:00 12/02/16 16:59 Insulin Aspart (NovoLOG) start when feeding started Q6HR SUBQ 11/02/16 18:00 12/02/16 17:59 11/20/16 06:13 Lansoprazole (Prevacid) 30 mg DAILY GT 10/31/16 09:00 11/30/16 08:59 11/20/16 10:09 Levalbuterol HCl (Xopenex) 1.25 mg Q4H PRN HHN Shortness of Breath 11/17/16 16:30 11/22/16 16:29 11/20/16 07:04 Levofloxacin 150 ml @ 100 mls/hr Q24H IVPB 11/11/16 14:30 12/22/16 14:29 11/19/16 14:51 Linezolid (Zyvox) 300 ml @ 300 mls/hr Q12HR IVPB 11/09/16 21:00 11/22/16 23:59 11/20/16 10:09 Meropenem/Sodium Chloride (Merrem/Sodium Chloride) 110 ml @ 220 mls/hr Q8HR IVPB 11/15/16 22:00 11/22/16 21:59 11/20/16 06:06 Metoclopramide HCl (Reglan) 10 mg THREE TIMES A DAY GT 10/24/16 19:00 11/23/16 18:59 11/20/16 10:09 Micafungin Sodium 100 mg/Sodium Chloride 110 ml @ 110 mls/hr Q24H IVPB 11/10/16 20:00 11/23/16 23:59 11/19/16 20:08 Ondansetron HCl (Zofran) 4 mg Q6H PRN IVP Nausea & Vomiting 11/02/16 17:00 12/02/16 16:59 Polyethylene Glycol (Miralax) 17 gm DAILYPRN PRN GT Constipation 10/25/16 01:00 11/24/16 00:59 11/03/16 00:00 Sodium Chloride 500 ml @ 999 mls/hr PRN PRN IVPB For hypotension 11/09/16 17:15 12/09/16 17:14 11/10/16 22:00 REN WRIGHT November 20, 2016 11:47
[2016-11-20 12:00] VITALS: BP 135/61
--- NOTE | 2016-11-20 13:05 | Internal Med Progress Note ---
Subjective Date of Service: November 20, 2016 Physician Name VerdinTadeo Attending Physician Steve Rader MD Current Medications Medications (Trade) Dose Ordered Sig/Shraddha Route PRN Reason Start Time Stop Time Status Last Admin Dose Admin Acetaminophen (Tylenol) 650 mg Q4H PRN ORAL fever>100.5 11/02/16 17:00 12/02/16 16:59 Acetaminophen 650 mg 650 mg Q4H PRN GT headache 11/03/16 08:00 12/03/16 07:59 11/18/16 17:47 Colistimethate Sodium 150 mg 150 mg Q12HR@10,22 INH 11/09/16 22:00 11/22/16 23:59 11/20/16 09:14 Dextrose (Dextrose 50%) STAT PRN IV Hypoglycemia 11/02/16 17:00 12/02/16 16:59 Insulin Aspart (NovoLOG) start when feeding started Q6HR SUBQ 11/02/16 18:00 12/02/16 17:59 11/20/16 06:13 Lansoprazole (Prevacid) 30 mg DAILY GT 10/31/16 09:00 11/30/16 08:59 11/20/16 10:09 Levalbuterol HCl (Xopenex) 1.25 mg Q4H PRN HHN Shortness of Breath 11/17/16 16:30 11/22/16 16:29 11/20/16 07:04 Levofloxacin 150 ml @ 100 mls/hr Q24H IVPB 11/11/16 14:30 12/22/16 14:29 11/19/16 14:51 Linezolid (Zyvox) 300 ml @ 300 mls/hr Q12HR IVPB 11/09/16 21:00 11/22/16 23:59 11/20/16 10:09 Meropenem/Sodium Chloride (Merrem/Sodium Chloride) 110 ml @ 220 mls/hr Q8HR IVPB 11/15/16 22:00 11/22/16 21:59 11/20/16 06:06 Metoclopramide HCl (Reglan) 10 mg THREE TIMES A DAY GT 10/24/16 19:00 11/23/16 18:59 11/20/16 10:09 Micafungin Sodium 100 mg/Sodium Chloride 110 ml @ 110 mls/hr Q24H IVPB 11/10/16 20:00 11/23/16 23:59 11/19/16 20:08 Ondansetron HCl (Zofran) 4 mg Q6H PRN IVP Nausea & Vomiting 11/02/16 17:00 12/02/16 16:59 Polyethylene Glycol (Miralax) 17 gm DAILYPRN PRN GT Constipation 10/25/16 01:00 11/24/16 00:59 11/03/16 00:00 Sodium Chloride 500 ml @ 999 mls/hr PRN PRN IVPB For hypotension 11/09/16 17:15 12/09/16 17:14 11/10/16 22:00 Allergies: Coded Allergies: No Known Allergies (Unverified , 06/17/16) ROS Limited/Unobtainable: No Constitutional: Reports: no symptoms HEENT: Reports: no symptoms Cardiovascular: Reports: no symptoms Respiratory: Reports: no symptoms Gastrointestinal/Abdominal: Reports: no symptoms Genitourinary: Reports: no symptoms Neurologic/Psychiatric: Reports: no symptoms Subjective 66 YO M admitted with respiratory failure. JORDAN. Back on [facility] vent. Cover for Int Med-Dr Rader. Await thoracentesis today Objective Last Vital Signs Date Time Temp Pulse Resp B/P Pulse Ox O2 Delivery O2 Flow Rate FiO2 11/20/16 11:09 95 18 40 11/20/16 08:00 97.5 110/68 100 Mechanical Ventilator 11/12/16 16:00 2.0 Laboratory Tests Test 11/20/16 04:00 White Blood Count 24.3 K/UL (4.8-10.8) *H Red Blood Count 3.46 M/UL (4.70-6.10) L Hemoglobin 9.6 G/DL (14.2-18.0) L Hematocrit 31.3 % (42.0-52.0) L Mean Corpuscular Volume 90 FL (80-99) Mean Corpuscular Hemoglobin 27.7 PG (27.0-31.0) Mean Corpuscular Hemoglobin Concent 30.7 G/DL (32.0-36.0) L Red Cell Distribution Width 19.0 % (11.6-14.8) H Platelet Count 286 K/UL (150-450) Mean Platelet Volume 7.0 FL (6.5-10.1) Neutrophils (%) (Auto) % (45.0-75.0) Lymphocytes (%) (Auto) % (20.0-45.0) Monocytes (%) (Auto) % (1.0-10.0) Eosinophils (%) (Auto) % (0.0-3.0) Basophils (%) (Auto) % (0.0-2.0) Differential Total Cells Counted 100 Neutrophils % (Manual) 89 % (45-75) H Lymphocytes % (Manual) 7 % (20-45) L Monocytes % (Manual) 4 % (1-10) Eosinophils % (Manual) 0 % (0-3) Basophils % (Manual) 0 % (0-2) Band Neutrophils 0 % (0-8) Platelet Estimate Adequate Platelet Morphology Normal Hypochromasia 1+ Anisocytosis 2+ Sodium Level 143 mEQ/L (135-145) Potassium Level 3.8 mEQ/L (3.4-4.9) Chloride Level 102 mEQ/L (98-107) Carbon Dioxide Level 35 mEQ/L (20-30) H Anion Gap 6 (5-15) Blood Urea Nitrogen 13 mg/dL (7-23) Creatinine 0.4 mg/dL (0.7-1.2) L Estimat Glomerular Filtration Rate > 60 mL/min (>60) Glucose Level 101 mg/dL (74-106) Calcium Level 7.9 mg/dL (8.6-10.2) L Phosphorus Level 2.5 mg/dL (2.5-4.8) Magnesium Level 2.0 mg/dL (1.7-2.5) Total Bilirubin 0.2 mg/dL (0.0-1.2) Aspartate Amino Transf (AST/SGOT) 33 U/L (5-40) Alanine Aminotransferase (ALT/SGPT) 25 U/L (3-41) Alkaline Phosphatase 261 U/L (40-129) H Total Protein 5.5 g/dL (6.6-8.7) L Albumin 1.6 g/dL (3.5-5.2) L Globulin 3.9 g/dL Albumin/Globulin Ratio 0.4 (1.0-2.7) L Microbiology Date/Time Source Procedure Growth Status 11/19/16 20:30 Stool Clostridium difficile Toxin Assay - Final Complete Intake and Output 11/19/16 11/20/16 19:00 07:00 Intake Total 1850 ml 710 ml Output Total 350 ml 600 ml Balance 1500 ml 110 ml Free Water 750 ml 450 ml IV Total 450 ml Tube Feeding 650 ml 260 ml Output Urine Total 350 ml 600 ml Objective General Appearance: moderate distress, thin EENT: PERRL/EOMI, normal ENT inspection Neck: non-tender, normal alignment, supple Cardiovascular: normal peripheral pulses, normal rate, regular rhythm, no gallop/murmur, no JVD Respiratory/Chest: Mech vent; respiratory distress, crackles/rales, rhonchi - bilaterally, expiratory wheezing Abdomen: non tender, soft, no organomegaly, no mass, decreased bowel sounds Extremities: normal range of motion Skin: normal pigmentation, warm/dry Assessment/Plan Problem List: (1) Lung nodule (2) DVT (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 (3) Acute respiratory failure Assessment & Plan: S/P tracheostomy 10/03/16. Cont vent per pulm (4) COPD exacerbation Assessment & Plan: Continue duoneb. Continue vent per pulmonary. (5) Pneumonia Assessment & Plan: Pseudamonas. New RLL consolidation. Continue colistin inh , micafungin, linezolid, levaquin and meropenem per ID (6) Leukocytosis Assessment & Plan: Worsening. Await Culture results. Start meropenem, levaquin, micafungin, colistin (inh) and linezolid per ID (7) Dysphagia Assessment & Plan: See GI consult- S/P PEG 10/04/16. (8) Hypoglycemia Assessment & Plan: D50 prn; decrease insulin sliding scale. (9) Dysuria Assessment & Plan: D/C garcia cath. (10) Severe sepsis Assessment & Plan: Blood cultures X2. Cont meropenem, colistin Inh, levaquin, micafungin and linezolid per ID. (11) Hypotension Assessment & Plan: ICU status for pressors, (12) Gastric mass (13) Mass of colon Assessment & Plan: Cecum and colon masses. See GI note. (14) UTI (urinary tract infection) due to Enterococcus Assessment & Plan: Love. On micafungin. See ID note. (15) Empyema Assessment & Plan: Possible per pulmonary. Cont Micafungin, meropenem, colistin (inh) and linezolid per ID (16) Anemia Assessment & Plan: S/P transfusion 1 unit PRBC (17) Pleural effusion on right Assessment & Plan: Await Thoracentesis today. Status: not improved Assessment/Plan Await [facility] ?[facility] [place] [facility]? TADEO VERDIN November 20, 2016 13:05
[2016-11-20 14:18] LABS: INR 1.3 (0.9-1.1); PROTHROMBIN TIME 13.3 SEC (9.30-11.50)
[2016-11-20 16:00] VITALS: BP 124/65
--- NOTE | 2016-11-20 16:12 | Cardiac Electrophysiology PN ---
Assessment/Plan Assessment/Plan 1. Sinus tachycardia due to sepsis . HR better in 90s 2. Hypotension. Due to sepsis and anemia.Resolved. On ABx.S/P PRBC 11/18/16. 3. Severe COPD and pulmonary hypertension 4. Ventilator-dependant respiratory failure, status post tracheostomy. 5. Dysphagia, status post percutaneous endoscopic gastrostomy placement. 6. Sepsis due to MDR ACB and PSA , on broad-spectrum intravenous antibiotics and antifungal per ID. 7. Lung abscess 8. Colonic mass and anemia.S/P transfusion. Follow up Dr. Arevalo and Yadira 9. Generalized edema. Not dehydrated or azotemic. DW RN Subjective Subjective On Vent via tracheostomy with PEG on JORDAN.Able to talk in short sentences despite trach. No chest pain or SOB. Remained in SR . Objective Last 24 Hour Vital Signs Date Time Temp Pulse Resp B/P Pulse Ox O2 Delivery O2 Flow Rate FiO2 11/20/16 15:30 84 16 40 11/20/16 13:23 90 17 40 11/20/16 12:00 97.3 100 16 135/61 100 Mechanical Ventilator 40 11/20/16 11:09 95 18 40 11/20/16 09:15 90 17 40 11/20/16 08:00 97.5 94 16 110/68 100 Mechanical Ventilator 40 11/20/16 07:05 103 16 40 11/20/16 05:15 101 16 40 11/20/16 04:00 101 11/20/16 04:00 50 11/20/16 04:00 98.0 97 16 131/84 100 Mechanical Ventilator 40 11/20/16 03:20 89 17 40 11/20/16 00:55 83 16 40 11/20/16 00:00 50 11/20/16 00:00 98.3 98 16 108/75 99 Mechanical Ventilator 40 11/20/16 00:00 101 11/19/16 23:19 103 16 100 Mechanical Ventilator 40 11/19/16 23:19 40 11/19/16 23:18 103 16 97 Mechanical Ventilator 40 11/19/16 23:08 112 16 40 11/19/16 21:25 40 11/19/16 21:25 119 16 100 Mechanical Ventilator 40 11/19/16 21:23 111 16 100 Mechanical Ventilator 40 11/19/16 21:21 98 17 40 11/19/16 20:00 98.0 105 16 104/67 97 Mechanical Ventilator 40 11/19/16 20:00 103 11/19/16 20:00 50 11/19/16 19:22 113 16 100 Mechanical Ventilator 40 11/19/16 19:22 40 11/19/16 19:17 109 17 95 Mechanical Ventilator 40 11/19/16 19:15 109 18 40 11/19/16 16:45 94 16 40 Intake and Output 11/19/16 11/20/16 19:00 07:00 Intake Total 1850 ml 710 ml Output Total 350 ml 600 ml Balance 1500 ml 110 ml Free Water 750 ml 450 ml IV Total 450 ml Tube Feeding 650 ml 260 ml Output Urine Total 350 ml 600 ml Laboratory Tests Test 11/20/16 04:00 11/20/16 13:00 White Blood Count 24.3 K/UL (4.8-10.8) *H Red Blood Count 3.46 M/UL (4.70-6.10) L Hemoglobin 9.6 G/DL (14.2-18.0) L Hematocrit 31.3 % (42.0-52.0) L Mean Corpuscular Volume 90 FL (80-99) Mean Corpuscular Hemoglobin 27.7 PG (27.0-31.0) Mean Corpuscular Hemoglobin Concent 30.7 G/DL (32.0-36.0) L Red Cell Distribution Width 19.0 % (11.6-14.8) H Platelet Count 286 K/UL (150-450) Mean Platelet Volume 7.0 FL (6.5-10.1) Neutrophils (%) (Auto) % (45.0-75.0) Lymphocytes (%) (Auto) % (20.0-45.0) Monocytes (%) (Auto) % (1.0-10.0) Eosinophils (%) (Auto) % (0.0-3.0) Basophils (%) (Auto) % (0.0-2.0) Differential Total Cells Counted 100 Neutrophils % (Manual) 89 % (45-75) H Lymphocytes % (Manual) 7 % (20-45) L Monocytes % (Manual) 4 % (1-10) Eosinophils % (Manual) 0 % (0-3) Basophils % (Manual) 0 % (0-2) Band Neutrophils 0 % (0-8) Platelet Estimate Adequate Platelet Morphology Normal Hypochromasia 1+ Anisocytosis 2+ Sodium Level 143 mEQ/L (135-145) Potassium Level 3.8 mEQ/L (3.4-4.9) Chloride Level 102 mEQ/L (98-107) Carbon Dioxide Level 35 mEQ/L (20-30) H Anion Gap 6 (5-15) Blood Urea Nitrogen 13 mg/dL (7-23) Creatinine 0.4 mg/dL (0.7-1.2) L Estimat Glomerular Filtration Rate > 60 mL/min (>60) Glucose Level 101 mg/dL (74-106) Calcium Level 7.9 mg/dL (8.6-10.2) L Phosphorus Level 2.5 mg/dL (2.5-4.8) Magnesium Level 2.0 mg/dL (1.7-2.5) Total Bilirubin 0.2 mg/dL (0.0-1.2) Aspartate Amino Transf (AST/SGOT) 33 U/L (5-40) Alanine Aminotransferase (ALT/SGPT) 25 U/L (3-41) Alkaline Phosphatase 261 U/L (40-129) H Total Protein 5.5 g/dL (6.6-8.7) L Albumin 1.6 g/dL (3.5-5.2) L Globulin 3.9 g/dL Albumin/Globulin Ratio 0.4 (1.0-2.7) L Prothrombin Time 13.3 SEC (9.30-11.50) H Prothromb Time International Ratio 1.3 (0.9-1.1) H Activated Partial Thromboplast Time 33 SEC (23-33) Microbiology Date/Time Source Procedure Growth Status 11/19/16 20:30 Stool Clostridium difficile Toxin Assay - Final Complete Objective HEAD AND NECK: No jugular venous distention, tracheostomy intact. LUNGS: Claer bilaterally. CARDIOVASCULAR: Tachycardic S1 and S2 with no gallop or murmur. ABDOMEN: Soft. G-tube intact. EXTREMITIES: Bilateral arm edema.PICC line in place. OSWALD HILLS November 20, 2016 16:12
[2016-11-20] MEDS: Acetaminophen 650mg/20.3ml GT PRN (17:56)
--- NOTE | 2016-11-20 18:48 | Infectious Diseases Prog Note ---
Assessment/Plan Assessment/Plan Plan ASSESSMENT: 66 y/o male with: // VAP / RUL Pna , as per pul no evidence of abscess - SCx: MDR ACB and PSA , repeat Scx: PSA - CT 11/14 :Extensive pneumonia involving both lungs as described above. 5-6 cm cavitary focus suspicious for lung abscess in the right upper lobe. // Probable UTI : UCx yeast and VRE // Leukocytosis - improving ( DVT, probable CA contributing, SP steroids ) // Hypotension SP // Febrile low grade SP // HIV and Hep B/C : neg // Colon mass ro cancer , GI is following CT: Large cecal mass and other polypoid colonic masses, detailed previously , again demonstrated // SP PEG 10/04 // Chronic VDRF SP trach // Severe pulmonary HTN / grade I diastolic dysfunction / mod TR // Pulmonary nodules // Chronic RLE DVT // Tobacco abuse // [facility] resident // Negative MRSA, VRE screens // NKDA // Full Code PLAN: - cont Merrem, Col[place]in INH , Zyvox and Mycamine d# 12 /14 and Levaquin d# / ( 11/09 SP Vanco d# 6 / 10 and oral Vanco d# 5 ) ( 10/17 SP Ceftazidime d# 14 ) ( 10/13 SP Jairon nebs d# 14 ) ( 10/11 SP Flagyl d# 10 ) ( 10/04 SP oral Vanco d# 3 ) ( 09/24 SP amikacin, invanz d# 5 / 5 ) ( 09/21 SP IV vancomycin d# 2 ) - monitor CBC, temperatures - monitor BMP - monitor CXR - vent support, trach care, aspiration precautions Subjective Allergies: Coded Allergies: No Known Allergies (Unverified , 06/17/16) Subjective on vent Objective Vital Signs Last 24 Hour Vital Signs Date Time Temp Pulse Resp B/P Pulse Ox O2 Delivery O2 Flow Rate FiO2 11/20/16 17:43 98 18 100 Mechanical Ventilator 40 11/20/16 17:26 95 11/20/16 17:17 97 17 40 11/20/16 16:00 50 11/20/16 16:00 97.5 103 16 124/65 100 Mechanical Ventilator 40 11/20/16 15:30 84 16 40 11/20/16 13:23 90 17 40 11/20/16 12:00 97.3 100 16 135/61 100 Mechanical Ventilator 40 11/20/16 12:00 50 11/20/16 11:47 92 11/20/16 11:09 95 18 40 11/20/16 09:15 90 17 40 11/20/16 09:14 95 16 100 Mechanical Ventilator 30 11/20/16 09:14 30 11/20/16 08:08 96 11/20/16 08:00 50 11/20/16 08:00 97.5 94 16 110/68 100 Mechanical Ventilator 40 11/20/16 07:05 103 16 40 11/20/16 05:15 101 16 40 11/20/16 04:00 101 11/20/16 04:00 50 11/20/16 04:00 98.0 97 16 131/84 100 Mechanical Ventilator 40 11/20/16 03:20 89 17 40 11/20/16 00:55 83 16 40 11/20/16 00:00 50 11/20/16 00:00 98.3 98 16 108/75 99 Mechanical Ventilator 40 11/20/16 00:00 101 11/19/16 23:19 103 16 100 Mechanical Ventilator 40 11/19/16 23:19 40 11/19/16 23:18 103 16 97 Mechanical Ventilator 40 11/19/16 23:08 112 16 40 11/19/16 21:25 40 11/19/16 21:25 119 16 100 Mechanical Ventilator 40 11/19/16 21:23 111 16 100 Mechanical Ventilator 40 11/19/16 21:21 98 17 40 11/19/16 20:00 98.0 105 16 104/67 97 Mechanical Ventilator 40 11/19/16 20:00 103 11/19/16 20:00 50 11/19/16 19:22 113 16 100 Mechanical Ventilator 40 11/19/16 19:22 40 11/19/16 19:17 109 17 95 Mechanical Ventilator 40 11/19/16 19:15 109 18 40 Height (Feet): 6 Height (Inches): 2.00 Weight (Pounds): 126 HEENT: mucous membranes moist Respiratory/Chest: no respiratory distress Cardiovascular: regularly irregular Abdomen: non distended Microbiology Date/Time Source Procedure Growth Status 11/19/16 20:30 Stool Clostridium difficile Toxin Assay - Final Complete Laboratory Tests Test 11/20/16 04:00 11/20/16 13:00 White Blood Count 24.3 K/UL (4.8-10.8) *H Red Blood Count 3.46 M/UL (4.70-6.10) L Hemoglobin 9.6 G/DL (14.2-18.0) L Hematocrit 31.3 % (42.0-52.0) L Mean Corpuscular Volume 90 FL (80-99) Mean Corpuscular Hemoglobin 27.7 PG (27.0-31.0) Mean Corpuscular Hemoglobin Concent 30.7 G/DL (32.0-36.0) L Red Cell Distribution Width 19.0 % (11.6-14.8) H Platelet Count 286 K/UL (150-450) Mean Platelet Volume 7.0 FL (6.5-10.1) Neutrophils (%) (Auto) % (45.0-75.0) Lymphocytes (%) (Auto) % (20.0-45.0) Monocytes (%) (Auto) % (1.0-10.0) Eosinophils (%) (Auto) % (0.0-3.0) Basophils (%) (Auto) % (0.0-2.0) Differential Total Cells Counted 100 Neutrophils % (Manual) 89 % (45-75) H Lymphocytes % (Manual) 7 % (20-45) L Monocytes % (Manual) 4 % (1-10) Eosinophils % (Manual) 0 % (0-3) Basophils % (Manual) 0 % (0-2) Band Neutrophils 0 % (0-8) Platelet Estimate Adequate Platelet Morphology Normal Hypochromasia 1+ Anisocytosis 2+ Sodium Level 143 mEQ/L (135-145) Potassium Level 3.8 mEQ/L (3.4-4.9) Chloride Level 102 mEQ/L (98-107) Carbon Dioxide Level 35 mEQ/L (20-30) H Anion Gap 6 (5-15) Blood Urea Nitrogen 13 mg/dL (7-23) Creatinine 0.4 mg/dL (0.7-1.2) L Estimat Glomerular Filtration Rate > 60 mL/min (>60) Glucose Level 101 mg/dL (74-106) Calcium Level 7.9 mg/dL (8.6-10.2) L Phosphorus Level 2.5 mg/dL (2.5-4.8) Magnesium Level 2.0 mg/dL (1.7-2.5) Total Bilirubin 0.2 mg/dL (0.0-1.2) Aspartate Amino Transf (AST/SGOT) 33 U/L (5-40) Alanine Aminotransferase (ALT/SGPT) 25 U/L (3-41) Alkaline Phosphatase 261 U/L (40-129) H Total Protein 5.5 g/dL (6.6-8.7) L Albumin 1.6 g/dL (3.5-5.2) L Globulin 3.9 g/dL Albumin/Globulin Ratio 0.4 (1.0-2.7) L Prothrombin Time 13.3 SEC (9.30-11.50) H Prothromb Time International Ratio 1.3 (0.9-1.1) H Activated Partial Thromboplast Time 33 SEC (23-33) Current Medications Medications (Trade) Dose Ordered Sig/Shraddha Route PRN Reason Start Time Stop Time Status Last Admin Dose Admin Acetaminophen (Tylenol) 650 mg Q4H PRN ORAL fever>100.5 11/02/16 17:00 12/02/16 16:59 Acetaminophen 650 mg 650 mg Q4H PRN GT headache 11/03/16 08:00 12/03/16 07:59 11/20/16 17:56 Colistimethate Sodium 150 mg 150 mg Q12HR@10,22 INH 11/09/16 22:00 11/22/16 23:59 11/20/16 09:14 Dextrose (Dextrose 50%) STAT PRN IV Hypoglycemia 11/02/16 17:00 12/02/16 16:59 Insulin Aspart (NovoLOG) start when feeding started Q6HR SUBQ 11/02/16 18:00 12/02/16 17:59 11/20/16 06:13 Lansoprazole (Prevacid) 30 mg DAILY GT 10/31/16 09:00 11/30/16 08:59 11/20/16 10:09 Levalbuterol HCl (Xopenex) 1.25 mg Q4H PRN HHN Shortness of Breath 11/17/16 16:30 11/22/16 16:29 11/20/16 15:57 Levofloxacin 150 ml @ 100 mls/hr Q24H IVPB 11/11/16 14:30 12/22/16 14:29 11/20/16 15:20 Linezolid (Zyvox) 300 ml @ 300 mls/hr Q12HR IVPB 11/09/16 21:00 11/22/16 23:59 11/20/16 10:09 Meropenem/Sodium Chloride (Merrem/Sodium Chloride) 110 ml @ 220 mls/hr Q8HR IVPB 11/15/16 22:00 11/22/16 21:59 11/20/16 14:34 Metoclopramide HCl (Reglan) 10 mg THREE TIMES A DAY GT 10/24/16 19:00 11/23/16 18:59 11/20/16 17:53 Micafungin Sodium 100 mg/Sodium Chloride 110 ml @ 110 mls/hr Q24H IVPB 11/10/16 20:00 11/23/16 23:59 11/19/16 20:08 Ondansetron HCl (Zofran) 4 mg Q6H PRN IVP Nausea & Vomiting 11/02/16 17:00 12/02/16 16:59 Polyethylene Glycol (Miralax) 17 gm DAILYPRN PRN GT Constipation 10/25/16 01:00 11/24/16 00:59 11/03/16 00:00 Sodium Chloride 500 ml @ 999 mls/hr PRN PRN IVPB For hypotension 11/09/16 17:15 12/09/16 17:14 11/10/16 22:00 KIMBERLEE HINKLE M.D. November 20, 2016 18:48
[2016-11-20 20:00] VITALS: BP 129/80
[2016-11-20] MEDS: Micafungin 100 MG in NS 110 ML IVPB SCH (20:29)
[2016-11-21 00:37] VITALS: BP 154/87
[2016-11-21] MEDS: Levalbuterol Inh UD 1.25mg/0.5ml HHN PRN ×5 (03:51→23:14)
[2016-11-21 04:00] VITALS: BP 132/80
[2016-11-21] MEDS: Meropenem 1 GM in NS 110 ML IVPB SCH ×3 (05:20→22:03)
[2016-11-21] MEDS: NovoLOG Insulin Flexpen SUBQ SCH ×3 (05:21→18:05)
[2016-11-21 05:37] LABS: MEAN CORPUSCULAR HGB CONC 30.9 G/DL (32.0-36.0); MEAN CORPUSCULAR VOLUME 91 FL (80-99); PLATELET COUNT 296 K/UL (150-450); RED BLOOD COUNT 3.45 M/UL (4.70-6.10); RED CELL DISTRIBUTION WIDTH 19.2 % (11.6-14.8)
[2016-11-21 05:56] LABS: ANION GAP 9 (5-15); CALCIUM 8.1 mg/dL (8.6-10.2); CARBON DIOXIDE 34 mEQ/L (20-30); CHLORIDE 98 mEQ/L (98-107); CREATININE 0.5 mg/dL (0.7-1.2); GLOMERULAR FILTRATION RATE > 60 mL/min (>60); HEMOLYSIS 2; POTASSIUM 4.1 mEQ/L (3.4-4.9); SODIUM 141 mEQ/L (135-145)
[2016-11-21 06:00] LABS: WHITE BLOOD COUNT 27.2 K/UL (4.8-10.8)
[2016-11-21 08:11] VITALS: BP 112/72
--- NOTE | 2016-11-21 09:29 | General Progress Note ---
Assessment/Plan Assessment/Plan Assessment - Colon polyps/mass seen on CT - patient has declined GI w/u - COPD - respiratory failure - PNA and lung abscess - s/p trach and PEG - dysphagia - Leukocytosis - h/o OB (+) - Anemia - gradual decline - Poor PX Recommendations - transfuse PRN - elevate HOB - abx - GT care / TF - follow labs - will see pt intermittently Subjective Allergies: Coded Allergies: No Known Allergies (Unverified , 06/17/16) Subjective calm watching TV no abd c/o tolerating cycled TF Objective Last 24 Hour Vital Signs Date Time Temp Pulse Resp B/P Pulse Ox O2 Delivery O2 Flow Rate FiO2 11/21/16 09:23 105 16 100 Mechanical Ventilator 40 11/21/16 09:11 106 19 100 Mechanical Ventilator 40 11/21/16 09:11 106 17 40 11/21/16 09:11 40 11/21/16 08:11 99.3 99 17 112/72 100 Mechanical Ventilator 40 11/21/16 06:40 98 16 40 11/21/16 05:23 117 18 40 11/21/16 04:00 50 11/21/16 04:00 104 11/21/16 04:00 98.7 111 20 132/80 94 Mechanical Ventilator 40.0 11/21/16 03:52 129 16 95 Mechanical Ventilator 40 11/21/16 03:52 40 11/21/16 03:51 128 16 95 Mechanical Ventilator 40 11/21/16 03:42 104 11/21/16 03:19 106 16 40 11/21/16 01:13 105 16 40 11/21/16 00:37 98.3 116 18 154/87 97 Mechanical Ventilator 40 11/21/16 00:00 123 11/21/16 00:00 50 11/20/16 23:10 97 16 40 11/20/16 21:57 93 16 99 Mechanical Ventilator 40 11/20/16 21:57 40 11/20/16 21:56 99 16 98 Mechanical Ventilator 30 11/20/16 20:50 119 17 40 11/20/16 20:02 40 11/20/16 20:02 112 16 99 Mechanical Ventilator 40 11/20/16 20:02 114 16 100 Mechanical Ventilator 40 11/20/16 20:00 113 11/20/16 20:00 98.1 122 16 129/80 98 Mechanical Ventilator 40 11/20/16 20:00 50 11/20/16 19:20 112 16 40 11/20/16 17:43 98 18 100 Mechanical Ventilator 40 11/20/16 17:26 95 11/20/16 17:17 97 17 40 11/20/16 16:00 50 11/20/16 16:00 97.5 103 16 124/65 100 Mechanical Ventilator 40 11/20/16 15:30 84 16 40 11/20/16 13:23 90 17 40 11/20/16 12:00 97.3 100 16 135/61 100 Mechanical Ventilator 40 11/20/16 12:00 50 11/20/16 11:47 92 11/20/16 11:09 95 18 40 Intake and Output 11/20/16 11/21/16 19:00 07:00 Intake Total 1100 ml 645 ml Output Total 800 ml 700 ml Balance 300 ml -55 ml Free Water 450 ml 450 ml Tube Feeding 650 ml 195 ml Output Urine Total 800 ml 700 ml # Bowel Movements 1 1 Laboratory Tests 11/20/16 13:00: Prothrombin Time 13.3H, Prothromb Time International Ratio 1.3H, Activated Partial Thromboplast Time 33 11/21/16 04:00: White Blood Count 27.2*H, Red Blood Count 3.45L, Hemoglobin 9.7L, Hematocrit 31.3L, Mean Corpuscular Volume 91, Mean Corpuscular Hemoglobin 28.0, Mean Corpuscular Hemoglobin Concent 30.9L, Red Cell Distribution Width 19.2H, Platelet Count 296, Mean Platelet Volume 7.0, Neutrophils (%) (Auto) , Lymphocytes (%) (Auto) , Monocytes (%) (Auto) , Eosinophils (%) (Auto) , Basophils (%) (Auto) , Neutrophils % (Manual) [Pending], Lymphocytes % (Manual) [Pending], Platelet Estimate [Pending], Platelet Morphology [Pending], Sodium Level 141, Potassium Level 4.1, Chloride Level 98, Carbon Dioxide Level 34H, Anion Gap 9, Blood Urea Nitrogen 13, Creatinine 0.5L, Estimat Glomerular Filtration Rate > 60, Glucose Level 107H, Calcium Level 8.1L Height (Feet): 6 Height (Inches): 2.00 Weight (Pounds): 126 Objective Elderly AA man NCAT (+) trach Coarse BS RRR soft NT abdomen, (+) GT poorly responsive ROSEMARY BURROUGHS November 21, 2016 09:29
[2016-11-21] MEDS ORDERED: NS 275ml ONE (10:15)
[2016-11-21] MEDS: Colistin for inhalation INH SCH ×2 (10:35→21:13)
[2016-11-21 10:51] LABS: ANISOCYTOSIS 2+; BAND NEUTROPHILS % (MANUAL) 1 % (0-8); BASOPHILS % (MANUAL) 0 % (0-2); EOSINOPHILS % (MANUAL) 1 % (0-3); HYPOCHROMASIA 1+; LYMPHOCYTES % (MANUAL) 5 % (20-45); NEUTROPHILS % (MANUAL) 88 % (45-75); PLATELET ESTIMATE ADEQUATE; PLATELET MORPHOLOGY NORMAL; TOTAL CELLS COUNTED 100
--- NOTE | 2016-11-21 11:37 | Pulmonology Progress Note ---
Assessment/Plan Problems: (1) Lung abscess (2) Severe sepsis (3) Abdominal distention (4) Respiratory failure (5) COPD exacerbation (6) Emphysema of lung (7) Colonic mass Assessment/Plan Respiratory: monitor respiratory rate, adjust FIO2, CXR - am , other - for thoracentesis today Cardiac: continue pressors, continue to monitor HR/BP Renal: F/U I&O, keep IV fluid Infectious Disease: check cultures Gastrointestinal: continue feedings/current rate, abdominal imaging Endocrine: monitor blood sugar Neurologic: PRN Ativan Affect: PRN ativan Prophylaxis: Protonix, Heparin Notes Reviewed: science instructor, cardio, renal 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, consultants, senior case manager Subjective ROS Limited/Unobtainable: No Allergies: Coded Allergies: No Known Allergies (Unverified , 06/17/16) Objective Last 24 Hour Vital Signs Date Time Temp Pulse Resp B/P Pulse Ox O2 Delivery O2 Flow Rate FiO2 11/21/16 10:46 95 16 100 Mechanical Ventilator 40 11/21/16 10:35 95 16 100 Mechanical Ventilator 40 11/21/16 10:35 95 16 40 11/21/16 10:35 40 11/21/16 09:23 105 16 100 Mechanical Ventilator 40 11/21/16 09:11 106 19 100 Mechanical Ventilator 40 11/21/16 09:11 106 17 40 11/21/16 09:11 40 11/21/16 08:11 99.3 99 17 112/72 100 Mechanical Ventilator 40 11/21/16 06:40 98 16 40 11/21/16 05:23 117 18 40 11/21/16 04:00 50 11/21/16 04:00 104 11/21/16 04:00 98.7 111 20 132/80 94 Mechanical Ventilator 40.0 11/21/16 03:52 129 16 95 Mechanical Ventilator 40 11/21/16 03:52 40 11/21/16 03:51 128 16 95 Mechanical Ventilator 40 11/21/16 03:42 104 11/21/16 03:19 106 16 40 11/21/16 01:13 105 16 40 11/21/16 00:37 98.3 116 18 154/87 97 Mechanical Ventilator 40 11/21/16 00:00 123 11/21/16 00:00 50 11/20/16 23:10 97 16 40 11/20/16 21:57 93 16 99 Mechanical Ventilator 40 11/20/16 21:57 40 11/20/16 21:56 99 16 98 Mechanical Ventilator 30 11/20/16 20:50 119 17 40 11/20/16 20:02 40 11/20/16 20:02 112 16 99 Mechanical Ventilator 40 11/20/16 20:02 114 16 100 Mechanical Ventilator 40 11/20/16 20:00 113 11/20/16 20:00 98.1 122 16 129/80 98 Mechanical Ventilator 40 11/20/16 20:00 50 11/20/16 19:20 112 16 40 11/20/16 17:43 98 18 100 Mechanical Ventilator 40 11/20/16 17:26 95 11/20/16 17:17 97 17 40 11/20/16 16:00 50 11/20/16 16:00 97.5 103 16 124/65 100 Mechanical Ventilator 40 11/20/16 15:30 84 16 40 11/20/16 13:23 90 17 40 11/20/16 12:00 97.3 100 16 135/61 100 Mechanical Ventilator 40 11/20/16 12:00 50 11/20/16 11:47 92 Intake and Output 11/20/16 11/21/16 19:00 07:00 Intake Total 1100 ml 645 ml Output Total 800 ml 700 ml Balance 300 ml -55 ml Free Water 450 ml 450 ml Tube Feeding 650 ml 195 ml Output Urine Total 800 ml 700 ml # Bowel Movements 1 1 Objective Status: awake HEENT: atraumatic, normocephalic Lungs: clear, decreased breath sounds Heart: HR/BP stable Abdomen: soft, non-tender Extremities: no C/C/E, edema Microbiology Date/Time Source Procedure Growth Status 11/19/16 20:30 Stool Clostridium difficile Toxin Assay - Final Complete Laboratory Tests 11/20/16 13:00: Prothrombin Time 13.3H, Prothromb Time International Ratio 1.3H, Activated Partial Thromboplast Time 33 11/21/16 04:00: White Blood Count 27.2*H, Red Blood Count 3.45L, Hemoglobin 9.7L, Hematocrit 31.3L, Mean Corpuscular Volume 91, Mean Corpuscular Hemoglobin 28.0, Mean Corpuscular Hemoglobin Concent 30.9L, Red Cell Distribution Width 19.2H, Platelet Count 296, Mean Platelet Volume 7.0, Neutrophils (%) (Auto) , Lymphocytes (%) (Auto) , Monocytes (%) (Auto) , Eosinophils (%) (Auto) , Basophils (%) (Auto) , Differential Total Cells Counted 100, Neutrophils % ( Manual) 88H, Lymphocytes % (Manual) 5L, Monocytes % (Manual) 5, Eosinophils % ( Manual) 1, Basophils % (Manual) 0, Band Neutrophils 1, Platelet Estimate Adequate, Platelet Morphology Normal, Hypochromasia 1+, Anisocytosis 2+, Sodium Level 141, Potassium Level 4.1, Chloride Level 98, Carbon Dioxide Level 34H, Anion Gap 9, Blood Urea Nitrogen 13, Creatinine 0.5L, Estimat Glomerular Filtration Rate > 60, Glucose Level 107H, Calcium Level 8.1L Current Medications Medications (Trade) Dose Ordered Sig/Shraddha Route PRN Reason Start Time Stop Time Status Last Admin Dose Admin Acetaminophen (Tylenol) 650 mg Q4H PRN ORAL fever>100.5 11/02/16 17:00 12/02/16 16:59 Acetaminophen 650 mg 650 mg Q4H PRN GT headache 11/03/16 08:00 12/03/16 07:59 11/20/16 17:56 Colistimethate Sodium 150 mg 150 mg Q12HR@10,22 INH 11/09/16 22:00 11/22/16 23:59 11/21/16 10:35 Dextrose (Dextrose 50%) STAT PRN IV Hypoglycemia 11/02/16 17:00 12/02/16 16:59 Insulin Aspart (NovoLOG) start when feeding started Q6HR SUBQ 11/02/16 18:00 12/02/16 17:59 11/20/16 23:27 Lansoprazole (Prevacid) 30 mg DAILY GT 10/31/16 09:00 11/30/16 08:59 11/21/16 08:53 Levalbuterol HCl (Xopenex) 1.25 mg Q4H PRN HHN Shortness of Breath 11/17/16 16:30 11/22/16 16:29 11/21/16 09:11 Levofloxacin 150 ml @ 100 mls/hr Q24H IVPB 11/11/16 14:30 12/22/16 14:29 11/20/16 15:20 Linezolid (Zyvox) 300 ml @ 300 mls/hr Q12HR IVPB 11/09/16 21:00 11/22/16 23:59 11/21/16 08:53 Meropenem/Sodium Chloride (Merrem/Sodium Chloride) 110 ml @ 220 mls/hr Q8HR IVPB 11/15/16 22:00 11/22/16 21:59 11/21/16 05:20 Metoclopramide HCl (Reglan) 10 mg THREE TIMES A DAY GT 10/24/16 19:00 11/23/16 18:59 11/21/16 08:53 Micafungin Sodium 100 mg/Sodium Chloride 110 ml @ 110 mls/hr Q24H IVPB 11/10/16 20:00 11/23/16 23:59 11/20/16 20:29 Ondansetron HCl (Zofran) 4 mg Q6H PRN IVP Nausea & Vomiting 11/02/16 17:00 12/02/16 16:59 Polyethylene Glycol (Miralax) 17 gm DAILYPRN PRN GT Constipation 10/25/16 01:00 11/24/16 00:59 11/03/16 00:00 Sodium Chloride 500 ml @ 999 mls/hr PRN PRN IVPB For hypotension 11/09/16 17:15 12/09/16 17:14 11/10/16 22:00 REN WRIGHT November 21, 2016 11:37
[2016-11-21 12:00] VITALS: BP 118/70
--- NOTE | 2016-11-21 13:03 | Diagnostic Imaging Report ---
Indications: Status post right thoracentesis Technique: Portable upright AP chest Findings: Comparison: 11/18/16 Right apical, lateral, and basal pleural thickening versus fluid persists, unchanged. No pneumothorax. Extensive right lung airspace opacities persist, unchanged. Parenchymal lucencies in both lung apices, increased interstitial markings throughout the remainder of both lungs, asymmetric hyperinflation of left lung unchanged. Cardiomediastinal silhouette stable. Interval placement of PICC via left upper extremity, tip in region of superior vena cava. IMPRESSION: No change in appearance of right pleural disease following thoracentesis compared to 3 days prior; no pneumothorax Stable bilateral pulmonary parenchymal disease as described Interval PICC placement, in good position
--- NOTE | 2016-11-21 13:15 | Diagnostic Imaging Report ---
Indications: Dyspnea, right pleural effusion, pneumonia Technique: Procedure, indications, risks and alternatives were explained to the patient's family who understands and gives consent to proceed. The right pleural space was surveyed sonographically. The skin over the posterior aspect of the right hemithorax was sterilely prepped and draped in usual fashion. Skin and subcutaneous soft tissues were infiltrated with 1% lidocaine and sodium bicarbonate. A small dermatotomy was made, through which an 8 Portuguese thoracentesis catheter was advanced under direct sonographic guidance into the right pleural space. Pleural fluid was maximally drained via vacuum apparatus.. Followup imaging was performed. Catheter was removed. Dermatotomy site was manually compressed to achieve stasis, then cleansed and bandaged. Patient tolerated the procedure well without immediate complications. Pleural fluid sent to laboratory for analysis, as requested. Findings: Initial imaging demonstrates a large amount of fluid within the right pleural space. Post procedure imaging demonstrates resolution of fluid. Thoracentesis yields 560 cc of clear light yellow fluid. IMPRESSION: Ultrasound-guided right thoracentesis yielding 560 cc of of pleural fluid , laboratory and pathology results pending. Followup chest radiograph pending.
[2016-11-21 14:33] LABS: APPEARANCE, BODY FLUID SLIGHTLY TURBID; BODY FLUID NUCLEATED CELLS 78 /CUMM; BODY FLUID RBC 423 /CUMM; POLYMORPHONUCLEAR WBC 45 %
[2016-11-21 14:34] LABS: MONONUCLEAR WBC 55 %
--- NOTE | 2016-11-21 14:36 | Infectious Diseases Prog Note ---
Assessment/Plan Assessment/Plan Plan ASSESSMENT: 66 y/o male with: // VAP / RUL Pna , as per pul no evidence of abscess - SCx: MDR ACB and PSA , repeat Scx: PSA - CT 11/14 :Extensive pneumonia involving both lungs as described above. 5-6 cm cavitary focus suspicious for lung abscess in the right upper lobe. // Probable UTI : UCx yeast and VRE // Leukocytosis - improving ( DVT, probable CA contributing, SP steroids ) // Hypotension SP // Febrile low grade SP // HIV and Hep B/C : neg // thoracentesis 11/21 // Colon mass ro cancer , GI is following CT: Large cecal mass and other polypoid colonic masses, detailed previously , again demonstrated // SP PEG 10/04 // Chronic VDRF SP trach // Severe pulmonary HTN / grade I diastolic dysfunction / mod TR // Pulmonary nodules // Chronic RLE DVT // Tobacco abuse // NH resident // Negative MRSA, VRE screens // NKDA // Full Code PLAN: - cont Merrem, Zyvox and Mycamine d# 13 /14 and Levaquin d# / , Colistin INH d# 13 / ( 11/09 SP Vanco d# 6 / 10 and oral Vanco d# 5 ) ( 10/17 SP Ceftazidime d# 14 ) ( 10/13 SP Jairon nebs d# 14 ) ( 10/11 SP Flagyl d# 10 ) ( 10/04 SP oral Vanco d# 3 ) ( 09/24 SP amikacin, invanz d# 5 / 5 ) ( 09/21 SP IV vancomycin d# 2 ) - monitor CBC, temperatures - monitor BMP - monitor CXR - vent support, trach care, aspiration precautions - Pl effusion wups :P Subjective Allergies: Coded Allergies: No Known Allergies (Unverified , 06/17/16) Subjective on vent Objective Vital Signs Last 24 Hour Vital Signs Date Time Temp Pulse Resp B/P Pulse Ox O2 Delivery O2 Flow Rate FiO2 11/21/16 13:26 108 16 40 11/21/16 12:00 99.9 98 17 118/70 100 Mechanical Ventilator 11/21/16 10:46 95 16 100 Mechanical Ventilator 40 11/21/16 10:35 95 16 100 Mechanical Ventilator 40 11/21/16 10:35 95 16 40 11/21/16 10:35 40 11/21/16 09:23 105 16 100 Mechanical Ventilator 40 11/21/16 09:11 106 19 100 Mechanical Ventilator 40 11/21/16 09:11 106 17 40 11/21/16 09:11 40 11/21/16 08:11 99.3 99 17 112/72 100 Mechanical Ventilator 40 11/21/16 06:40 98 16 40 11/21/16 05:23 117 18 40 11/21/16 04:00 50 11/21/16 04:00 104 11/21/16 04:00 98.7 111 20 132/80 94 Mechanical Ventilator 40.0 11/21/16 03:52 129 16 95 Mechanical Ventilator 40 11/21/16 03:52 40 11/21/16 03:51 128 16 95 Mechanical Ventilator 40 11/21/16 03:42 104 11/21/16 03:19 106 16 40 11/21/16 01:13 105 16 40 11/21/16 00:37 98.3 116 18 154/87 97 Mechanical Ventilator 40 11/21/16 00:00 123 11/21/16 00:00 50 11/20/16 23:10 97 16 40 11/20/16 21:57 93 16 99 Mechanical Ventilator 40 11/20/16 21:57 40 11/20/16 21:56 99 16 98 Mechanical Ventilator 30 11/20/16 20:50 119 17 40 11/20/16 20:02 40 11/20/16 20:02 112 16 99 Mechanical Ventilator 40 11/20/16 20:02 114 16 100 Mechanical Ventilator 40 11/20/16 20:00 113 11/20/16 20:00 98.1 122 16 129/80 98 Mechanical Ventilator 40 11/20/16 20:00 50 11/20/16 19:20 112 16 40 11/20/16 17:43 98 18 100 Mechanical Ventilator 40 11/20/16 17:26 95 11/20/16 17:17 97 17 40 11/20/16 16:00 50 11/20/16 16:00 97.5 103 16 124/65 100 Mechanical Ventilator 40 11/20/16 15:30 84 16 40 Height (Feet): 6 Height (Inches): 2.00 Weight (Pounds): 126 HEENT: anicteric Respiratory/Chest: respiratory distress Cardiovascular: regular rhythm Abdomen: no organomegaly Microbiology Date/Time Source Procedure Growth Status 11/19/16 20:30 Stool Clostridium difficile Toxin Assay - Final Complete Laboratory Tests Test 11/21/16 04:00 11/21/16 11:50 White Blood Count 27.2 K/UL (4.8-10.8) *H Red Blood Count 3.45 M/UL (4.70-6.10) L Hemoglobin 9.7 G/DL (14.2-18.0) L Hematocrit 31.3 % (42.0-52.0) L Mean Corpuscular Volume 91 FL (80-99) Mean Corpuscular Hemoglobin 28.0 PG (27.0-31.0) Mean Corpuscular Hemoglobin Concent 30.9 G/DL (32.0-36.0) L Red Cell Distribution Width 19.2 % (11.6-14.8) H Platelet Count 296 K/UL (150-450) Mean Platelet Volume 7.0 FL (6.5-10.1) Neutrophils (%) (Auto) % (45.0-75.0) Lymphocytes (%) (Auto) % (20.0-45.0) Monocytes (%) (Auto) % (1.0-10.0) Eosinophils (%) (Auto) % (0.0-3.0) Basophils (%) (Auto) % (0.0-2.0) Differential Total Cells Counted 100 Neutrophils % (Manual) 88 % (45-75) H Lymphocytes % (Manual) 5 % (20-45) L Monocytes % (Manual) 5 % (1-10) Eosinophils % (Manual) 1 % (0-3) Basophils % (Manual) 0 % (0-2) Band Neutrophils 1 % (0-8) Platelet Estimate Adequate Platelet Morphology Normal Hypochromasia 1+ Anisocytosis 2+ Sodium Level 141 mEQ/L (135-145) Potassium Level 4.1 mEQ/L (3.4-4.9) Chloride Level 98 mEQ/L (98-107) Carbon Dioxide Level 34 mEQ/L (20-30) H Anion Gap 9 (5-15) Blood Urea Nitrogen 13 mg/dL (7-23) Creatinine 0.5 mg/dL (0.7-1.2) L Estimat Glomerular Filtration Rate > 60 mL/min (>60) Glucose Level 107 mg/dL (74-106) H Calcium Level 8.1 mg/dL (8.6-10.2) L Body Fluid Source Pending Body Fluid Volume Pending Body Fluid Appearance Pending Body Fluid RBC Pending Body Fluid Total Nucleated Cells Pending Body Fluid Polynuclear WBCs (%) Pending Body Fluid Mononuclear WBCs (%) Pending Body Fluid Mesothelial Cells (%) Pending Body Fluid Glucose Pending Body Fluid Total Protein Pending Body Fluid Albumin Pending Current Medications Medications (Trade) Dose Ordered Sig/Shraddha Route PRN Reason Start Time Stop Time Status Last Admin Dose Admin Acetaminophen (Tylenol) 650 mg Q4H PRN ORAL fever>100.5 11/02/16 17:00 12/02/16 16:59 Acetaminophen 650 mg 650 mg Q4H PRN GT headache 11/03/16 08:00 12/03/16 07:59 11/20/16 17:56 Colistimethate Sodium 150 mg 150 mg Q12HR@10,22 INH 11/09/16 22:00 11/22/16 23:59 11/21/16 10:35 Dextrose (Dextrose 50%) STAT PRN IV Hypoglycemia 11/02/16 17:00 12/02/16 16:59 Insulin Aspart (NovoLOG) start when feeding started Q6HR SUBQ 11/02/16 18:00 12/02/16 17:59 11/20/16 23:27 Lansoprazole (Prevacid) 30 mg DAILY GT 10/31/16 09:00 11/30/16 08:59 11/21/16 08:53 Levalbuterol HCl (Xopenex) 1.25 mg Q4H PRN HHN Shortness of Breath 11/17/16 16:30 11/22/16 16:29 11/21/16 09:11 Levofloxacin 150 ml @ 100 mls/hr Q24H IVPB 11/11/16 14:30 12/22/16 14:29 11/20/16 15:20 Linezolid (Zyvox) 300 ml @ 300 mls/hr Q12HR IVPB 11/09/16 21:00 11/22/16 23:59 11/21/16 08:53 Meropenem/Sodium Chloride (Merrem/Sodium Chloride) 110 ml @ 220 mls/hr Q8HR IVPB 11/15/16 22:00 11/22/16 21:59 11/21/16 13:37 Metoclopramide HCl (Reglan) 10 mg THREE TIMES A DAY GT 10/24/16 19:00 11/23/16 18:59 11/21/16 13:36 Micafungin Sodium 100 mg/Sodium Chloride 110 ml @ 110 mls/hr Q24H IVPB 11/10/16 20:00 11/23/16 23:59 11/20/16 20:29 Ondansetron HCl (Zofran) 4 mg Q6H PRN IVP Nausea & Vomiting 11/02/16 17:00 12/02/16 16:59 Polyethylene Glycol (Miralax) 17 gm DAILYPRN PRN GT Constipation 10/25/16 01:00 11/24/16 00:59 11/03/16 00:00 Sodium Chloride 500 ml @ 999 mls/hr PRN PRN IVPB For hypotension 11/09/16 17:15 12/09/16 17:14 11/10/16 22:00 KIMBERLEE HINKLE M.D. November 21, 2016 14:36
[2016-11-21 14:38] LABS: BD FL SOURCE PLEURAL FLUID
--- NOTE | 2016-11-21 15:28 | Cardiac Electrophysiology PN ---
Assessment/Plan Assessment/Plan 1. Sinus tachycardia due to sepsis. HR better in 90s 2. Hypotension. Due to sepsis and anemia.Resolved. On ABx.S/P PRBC 11/18/16. 3. Severe COPD and pulmonary hypertension 4. Ventilator-dependant respiratory failure, status post tracheostomy. 5. Dysphagia, status post percutaneous endoscopic gastrostomy placement. 6. Sepsis due to MDR ACB and PSA , on intravenous antibiotics and antifungal per ID. 7. Lung abscess 8. Colonic mass and anemia.S/P transfusion. Follow up Dr. Arevalo and Yadira 9. Generalized edema. Not dehydrated or azotemic. DC iv fluid DW RN Subjective Subjective On Vent via tracheostomy with PEG on JORDAN. No chest pain or SOB. Remained in SR . Alert and family at bedside. Objective Last 24 Hour Vital Signs Date Time Temp Pulse Resp B/P Pulse Ox O2 Delivery O2 Flow Rate FiO2 11/21/16 14:54 97 19 97 Mechanical Ventilator 40 11/21/16 14:54 40 11/21/16 14:53 97 16 40 11/21/16 13:26 108 16 40 11/21/16 12:00 99.9 98 17 118/70 100 Mechanical Ventilator 11/21/16 11:46 116 11/21/16 10:46 95 16 100 Mechanical Ventilator 40 11/21/16 10:35 95 16 100 Mechanical Ventilator 40 11/21/16 10:35 95 16 40 11/21/16 10:35 40 11/21/16 09:23 105 16 100 Mechanical Ventilator 40 11/21/16 09:11 106 19 100 Mechanical Ventilator 40 11/21/16 09:11 106 17 40 11/21/16 09:11 40 11/21/16 08:11 99.3 99 17 112/72 100 Mechanical Ventilator 40 11/21/16 07:58 100 11/21/16 06:40 98 16 40 11/21/16 05:23 117 18 40 11/21/16 04:00 50 11/21/16 04:00 104 11/21/16 04:00 98.7 111 20 132/80 94 Mechanical Ventilator 40.0 11/21/16 03:52 129 16 95 Mechanical Ventilator 40 11/21/16 03:52 40 11/21/16 03:51 128 16 95 Mechanical Ventilator 40 11/21/16 03:42 104 11/21/16 03:19 106 16 40 11/21/16 01:13 105 16 40 11/21/16 00:37 98.3 116 18 154/87 97 Mechanical Ventilator 40 11/21/16 00:00 123 11/21/16 00:00 50 11/20/16 23:10 97 16 40 11/20/16 21:57 93 16 99 Mechanical Ventilator 40 11/20/16 21:57 40 11/20/16 21:56 99 16 98 Mechanical Ventilator 30 11/20/16 20:50 119 17 40 11/20/16 20:02 40 11/20/16 20:02 112 16 99 Mechanical Ventilator 40 11/20/16 20:02 114 16 100 Mechanical Ventilator 40 11/20/16 20:00 113 11/20/16 20:00 98.1 122 16 129/80 98 Mechanical Ventilator 40 11/20/16 20:00 50 11/20/16 19:20 112 16 40 11/20/16 17:43 98 18 100 Mechanical Ventilator 40 11/20/16 17:26 95 11/20/16 17:17 97 17 40 11/20/16 16:00 50 11/20/16 16:00 97.5 103 16 124/65 100 Mechanical Ventilator 40 11/20/16 15:30 84 16 40 Intake and Output 11/20/16 11/21/16 19:00 07:00 Intake Total 1100 ml 645 ml Output Total 800 ml 700 ml Balance 300 ml -55 ml Free Water 450 ml 450 ml Tube Feeding 650 ml 195 ml Output Urine Total 800 ml 700 ml # Bowel Movements 1 1 Laboratory Tests Test 11/21/16 04:00 11/21/16 11:50 White Blood Count 27.2 K/UL (4.8-10.8) *H Red Blood Count 3.45 M/UL (4.70-6.10) L Hemoglobin 9.7 G/DL (14.2-18.0) L Hematocrit 31.3 % (42.0-52.0) L Mean Corpuscular Volume 91 FL (80-99) Mean Corpuscular Hemoglobin 28.0 PG (27.0-31.0) Mean Corpuscular Hemoglobin Concent 30.9 G/DL (32.0-36.0) L Red Cell Distribution Width 19.2 % (11.6-14.8) H Platelet Count 296 K/UL (150-450) Mean Platelet Volume 7.0 FL (6.5-10.1) Neutrophils (%) (Auto) % (45.0-75.0) Lymphocytes (%) (Auto) % (20.0-45.0) Monocytes (%) (Auto) % (1.0-10.0) Eosinophils (%) (Auto) % (0.0-3.0) Basophils (%) (Auto) % (0.0-2.0) Differential Total Cells Counted 100 Neutrophils % (Manual) 88 % (45-75) H Lymphocytes % (Manual) 5 % (20-45) L Monocytes % (Manual) 5 % (1-10) Eosinophils % (Manual) 1 % (0-3) Basophils % (Manual) 0 % (0-2) Band Neutrophils 1 % (0-8) Platelet Estimate Adequate Platelet Morphology Normal Hypochromasia 1+ Anisocytosis 2+ Sodium Level 141 mEQ/L (135-145) Potassium Level 4.1 mEQ/L (3.4-4.9) Chloride Level 98 mEQ/L (98-107) Carbon Dioxide Level 34 mEQ/L (20-30) H Anion Gap 9 (5-15) Blood Urea Nitrogen 13 mg/dL (7-23) Creatinine 0.5 mg/dL (0.7-1.2) L Estimat Glomerular Filtration Rate > 60 mL/min (>60) Glucose Level 107 mg/dL (74-106) H Calcium Level 8.1 mg/dL (8.6-10.2) L Body Fluid Source Pleural fluid Body Fluid Volume 8.0 mL Body Fluid Appearance Slightly turbid Body Fluid RBC 423 /CUMM Body Fluid Total Nucleated Cells 78 /CUMM Body Fluid Polynuclear WBCs (%) 45 % Body Fluid Mononuclear WBCs (%) 55 % Body Fluid Mesothelial Cells (%) 1 % Body Fluid Glucose Pending Body Fluid Total Protein Pending Body Fluid Albumin Pending Microbiology Date/Time Source Procedure Growth Status 11/19/16 20:30 Stool Clostridium difficile Toxin Assay - Final Complete Objective HEAD AND NECK: No jugular venous distention, tracheostomy intact. LUNGS: Clear bilaterally. CARDIOVASCULAR: Tachycardic S1 and S2 with no gallop or murmur. ABDOMEN: Soft. G-tube intact. EXTREMITIES: Bilateral arm edema.PICC line in place. OSWALD HILLS November 21, 2016 15:28
[2016-11-21 16:00] VITALS: BP 104/73
--- NOTE | 2016-11-21 19:24 | Internal Med Progress Note ---
Subjective Date of Service: November 21, 2016 Physician Name Tadeo Verdin Attending Physician Steve Rader MD Current Medications Medications (Trade) Dose Ordered Sig/Shraddha Route PRN Reason Start Time Stop Time Status Last Admin Dose Admin Acetaminophen (Tylenol) 650 mg Q4H PRN ORAL fever>100.5 11/02/16 17:00 12/02/16 16:59 Acetaminophen 650 mg 650 mg Q4H PRN GT headache 11/03/16 08:00 12/03/16 07:59 11/20/16 17:56 Colistimethate Sodium 150 mg 150 mg Q12HR@10,22 INH 11/09/16 22:00 11/22/16 23:59 11/21/16 10:35 Dextrose (Dextrose 50%) STAT PRN IV Hypoglycemia 11/02/16 17:00 12/02/16 16:59 Insulin Aspart (NovoLOG) start when feeding started Q6HR SUBQ 11/02/16 18:00 12/02/16 17:59 11/21/16 18:05 Lansoprazole (Prevacid) 30 mg DAILY GT 10/31/16 09:00 11/30/16 08:59 11/21/16 08:53 Levalbuterol HCl (Xopenex) 1.25 mg Q4H PRN HHN Shortness of Breath 11/17/16 16:30 11/22/16 16:29 11/21/16 19:20 Levofloxacin 150 ml @ 100 mls/hr Q24H IVPB 11/11/16 14:30 12/22/16 14:29 11/21/16 14:48 Linezolid (Zyvox) 300 ml @ 300 mls/hr Q12HR IVPB 11/09/16 21:00 11/22/16 23:59 11/21/16 08:53 Meropenem/Sodium Chloride (Merrem/Sodium Chloride) 110 ml @ 220 mls/hr Q8HR IVPB 11/15/16 22:00 11/22/16 21:59 11/21/16 13:37 Metoclopramide HCl (Reglan) 10 mg THREE TIMES A DAY GT 10/24/16 19:00 11/23/16 18:59 11/21/16 18:04 Micafungin Sodium 100 mg/Sodium Chloride 110 ml @ 110 mls/hr Q24H IVPB 11/10/16 20:00 11/23/16 23:59 11/20/16 20:29 Ondansetron HCl (Zofran) 4 mg Q6H PRN IVP Nausea & Vomiting 11/02/16 17:00 12/02/16 16:59 Polyethylene Glycol (Miralax) 17 gm DAILYPRN PRN GT Constipation 10/25/16 01:00 11/24/16 00:59 11/03/16 00:00 Sodium Chloride 500 ml @ 999 mls/hr PRN PRN IVPB For hypotension 11/09/16 17:15 12/09/16 17:14 11/10/16 22:00 Allergies: Coded Allergies: No Known Allergies (Unverified , 06/17/16) ROS Limited/Unobtainable: No Constitutional: Reports: no symptoms HEENT: Reports: no symptoms Cardiovascular: Reports: no symptoms Respiratory: Reports: no symptoms Gastrointestinal/Abdominal: Reports: no symptoms Genitourinary: Reports: no symptoms Neurologic/Psychiatric: Reports: no symptoms Subjective 66 YO M admitted with respiratory failure. JORDAN. Back on [facility] vent. Cover for Int Med-Dr Rader. Await thoracentesis today Objective Last Vital Signs Date Time Temp Pulse Resp B/P Pulse Ox O2 Delivery O2 Flow Rate FiO2 11/21/16 16:58 111 20 40 11/21/16 16:00 98.2 104/73 100 Mechanical Ventilator 11/21/16 04:00 40.0 Laboratory Tests Test 11/21/16 04:00 11/21/16 11:50 White Blood Count 27.2 K/UL (4.8-10.8) *H Red Blood Count 3.45 M/UL (4.70-6.10) L Hemoglobin 9.7 G/DL (14.2-18.0) L Hematocrit 31.3 % (42.0-52.0) L Mean Corpuscular Volume 91 FL (80-99) Mean Corpuscular Hemoglobin 28.0 PG (27.0-31.0) Mean Corpuscular Hemoglobin Concent 30.9 G/DL (32.0-36.0) L Red Cell Distribution Width 19.2 % (11.6-14.8) H Platelet Count 296 K/UL (150-450) Mean Platelet Volume 7.0 FL (6.5-10.1) Neutrophils (%) (Auto) % (45.0-75.0) Lymphocytes (%) (Auto) % (20.0-45.0) Monocytes (%) (Auto) % (1.0-10.0) Eosinophils (%) (Auto) % (0.0-3.0) Basophils (%) (Auto) % (0.0-2.0) Differential Total Cells Counted 100 Neutrophils % (Manual) 88 % (45-75) H Lymphocytes % (Manual) 5 % (20-45) L Monocytes % (Manual) 5 % (1-10) Eosinophils % (Manual) 1 % (0-3) Basophils % (Manual) 0 % (0-2) Band Neutrophils 1 % (0-8) Platelet Estimate Adequate Platelet Morphology Normal Hypochromasia 1+ Anisocytosis 2+ Sodium Level 141 mEQ/L (135-145) Potassium Level 4.1 mEQ/L (3.4-4.9) Chloride Level 98 mEQ/L (98-107) Carbon Dioxide Level 34 mEQ/L (20-30) H Anion Gap 9 (5-15) Blood Urea Nitrogen 13 mg/dL (7-23) Creatinine 0.5 mg/dL (0.7-1.2) L Estimat Glomerular Filtration Rate > 60 mL/min (>60) Glucose Level 107 mg/dL (74-106) H Calcium Level 8.1 mg/dL (8.6-10.2) L Body Fluid Source Pleural fluid Body Fluid Volume 8.0 mL Body Fluid Appearance Slightly turbid Body Fluid RBC 423 /CUMM Body Fluid Total Nucleated Cells 78 /CUMM Body Fluid Polynuclear WBCs (%) 45 % Body Fluid Mononuclear WBCs (%) 55 % Body Fluid Mesothelial Cells (%) 1 % Body Fluid Glucose Pending Body Fluid Total Protein Pending Body Fluid Albumin Pending Microbiology Date/Time Source Procedure Growth Status 11/19/16 20:30 Stool Clostridium difficile Toxin Assay - Final Complete Intake and Output 11/20/16 11/21/16 19:00 07:00 Intake Total 1100 ml 645 ml Output Total 800 ml 700 ml Balance 300 ml -55 ml Free Water 450 ml 450 ml Tube Feeding 650 ml 195 ml Output Urine Total 800 ml 700 ml # Bowel Movements 1 1 Objective General Appearance: moderate distress, thin EENT: PERRL/EOMI, normal ENT inspection Neck: non-tender, normal alignment, supple Cardiovascular: normal peripheral pulses, normal rate, regular rhythm, no gallop/murmur, no JVD Respiratory/Chest: Mech vent; respiratory distress, crackles/rales, rhonchi - bilaterally, expiratory wheezing Abdomen: non tender, soft, no organomegaly, no mass, decreased bowel sounds Extremities: normal range of motion Skin: normal pigmentation, warm/dry Assessment/Plan Problem List: (1) Lung nodule (2) DVT (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 (3) Acute respiratory failure Assessment & Plan: S/P tracheostomy 10/03/16. Cont vent per pulm (4) COPD exacerbation Assessment & Plan: Continue duoneb. Continue vent per pulmonary. (5) Pneumonia Assessment & Plan: Pseudamonas. New RLL consolidation. Continue colistin inh , micafungin, linezolid, levaquin and meropenem per ID (6) Leukocytosis Assessment & Plan: Worsening. Await Culture results. Start meropenem, levaquin, micafungin, colistin (inh) and linezolid per ID (7) Dysphagia Assessment & Plan: See GI consult- S/P PEG 10/04/16. (8) Hypoglycemia Assessment & Plan: D50 prn; decrease insulin sliding scale. (9) Dysuria Assessment & Plan: D/C garcia cath. (10) Severe sepsis Assessment & Plan: Blood cultures X2. Cont meropenem, colistin Inh, levaquin, micafungin and linezolid per ID. (11) Hypotension Assessment & Plan: ICU status for pressors, (12) Gastric mass (13) Mass of colon Assessment & Plan: Cecum and colon masses. See GI note. (14) UTI (urinary tract infection) due to Enterococcus Assessment & Plan: Love. On micafungin. See ID note. (15) Empyema Assessment & Plan: Possible per pulmonary. Cont Micafungin, meropenem, colistin (inh) and linezolid per ID (16) Anemia Assessment & Plan: S/P transfusion 1 unit PRBC (17) Pleural effusion on right Assessment & Plan: Await Thoracentesis today. Assessment/Plan Await placement @ [facility] ?[facility]? TADEO VERDIN November 21, 2016 19:24
[2016-11-21] MEDS: Micafungin 100 MG in NS 110 ML IVPB SCH (20:06)
[2016-11-21 20:17] VITALS: BP 108/77
[2016-11-22 04:03] VITALS: BP 117/61
[2016-11-22] MEDS: Levalbuterol Inh UD 1.25mg/0.5ml HHN PRN (05:01)
[2016-11-22 05:35] LABS: MEAN CORPUSCULAR HGB CONC 31.3 G/DL (32.0-36.0); MEAN CORPUSCULAR VOLUME 90 FL (80-99); MEAN PLATELET VOLUME 7.2 FL (6.5-10.1); PLATELET COUNT 206 K/UL (150-450); RED CELL DISTRIBUTION WIDTH 18.1 % (11.6-14.8); WHITE BLOOD COUNT 14.9 K/UL (4.8-10.8)
[2016-11-22] MEDS: NovoLOG Insulin Flexpen SUBQ SCH ×5 (05:56→23:19)
[2016-11-22] MEDS: Meropenem 1 GM in NS 110 ML IVPB SCH ×2 (05:57→15:08)
[2016-11-22 05:59] LABS: ALANINE AMINOTRANSFERASE 19 U/L (3-41); ALBUMIN/GLOBULIN RATIO 0.3 (1.0-2.7); ANION GAP 7 (5-15); ASPARTATE AMINO TRANSFERASE 31 U/L (5-40); CALCIUM 7.8 mg/dL (8.6-10.2); CARBON DIOXIDE 35 mEQ/L (20-30); CHLORIDE 96 mEQ/L (98-107); CREATININE 0.5 mg/dL (0.7-1.2); GLOMERULAR FILTRATION RATE > 60 mL/min (>60); HEMOLYSIS 0; POTASSIUM 3.8 mEQ/L (3.4-4.9); SODIUM 138 mEQ/L (135-145); TOTAL PROTEIN 4.8 g/dL (6.6-8.7)
[2016-11-22 08:00] VITALS: BP 99/64
--- NOTE | 2016-11-22 08:01 | Infectious Diseases Prog Note ---
Assessment/Plan Assessment/Plan ASSESSMENT: 66 y/o male with: // VAP / RUL PNA ( as per pulm no evidence abscess ) - SCx: MDR ACB and PSA , repeat Scx: PSA - CT 11/14 :Extensive pneumonia involving both lungs as described above. 5-6 cm cavitary focus suspicious for lung abscess in the right upper lobe. // Pleural effusion r/o empyema - SP thoracentesis - Cx pending // Probable UTI : UCx yeast and VRE // Negative C.difficile 11/21 // Leukocytosis - improving ( DVT, probable CA contributing, SP steroids ) // Hypotension SP // Febrile low grade SP // HIV and Hep B/C : neg // Colon mass ro cancer , GI is following CT: Large cecal mass and other polypoid colonic masses, detailed previously , again demonstrated // SP PEG 10/04 // Chronic VDRF SP trach // Severe pulmonary HTN / grade I diastolic dysfunction / mod TR // Pulmonary nodules // Chronic RLE DVT // Tobacco abuse // [facility] resident // Negative MRSA, VRE screens // NKDA // Full Code PLAN: - cont Merrem, Zyvox and Mycamine d# 14 /14 and Levaquin d# / , Colistin INH d# / ( 11/09 SP Vanco d# 6 / 10 and oral Vanco d# 5 ) ( 10/17 SP Ceftazidime d# 14 ) ( 10/13 SP Jairon nebs d# 14 ) ( 10/11 SP Flagyl d# 10 ) ( 10/04 SP oral Vanco d# 3 ) ( 09/24 SP amikacin, invanz d# 5 / 5 ) ( 09/21 SP IV vancomycin d# 2 ) - f/u cultures - monitor CBC, temperatures - monitor BMP - monitor CXR - vent support, trach care, aspiration precautions Subjective Allergies: Coded Allergies: No Known Allergies (Unverified , 06/17/16) Subjective WBC improved, remains afebrile on vent SP thoracentesis C.diff neg Objective Vital Signs Last 24 Hour Vital Signs Date Time Temp Pulse Resp B/P Pulse Ox O2 Delivery O2 Flow Rate FiO2 11/22/16 06:53 95 20 40 11/22/16 05:23 104 16 100 Mechanical Ventilator 40 11/22/16 05:03 106 20 40 11/22/16 05:03 40 11/22/16 05:02 106 19 100 Mechanical Ventilator 40 11/22/16 04:03 98.2 98 16 117/61 100 Mechanical Ventilator 40 17 04:00 40 17 03:37 99 17 02:45 105 17 40 17 00:23 111 16 40 17 00:00 40 17 23:45 99 1817 23:15 40 1817 23:14 105 21 97 Mechanical Ventilator 40 18/17 23:13 105 18 40 18/17 21:25 92 18 100 Mechanical Ventilator 40 11/21/17 21:16 102 18 40 17 21:15 40 17 21:15 89 16 98 Mechanical Ventilator 40 18/17 20:17 97.7 114 16 108/77 98 Mechanical Ventilator 40 18/17 20:00 40 11/21/17 19:30 96 16 100 Mechanical Ventilator 40 11/21/17 19:26 114 17 40 17 19:23 117 17 19:20 40 11/21/17 19:20 93 19 97 Mechanical Ventilator 40 11/21/17 16:58 111 20 40 17 16:00 98.2 103 22 104/73 100 Mechanical Ventilator 40 11/21/17 16:00 103 18/17 16:00 50 11/21/17 14:54 97 19 97 Mechanical Ventilator 40 11/21/17 14:54 40 11/21/17 14:53 97 16 40 11/21/17 13:26 108 16 40 11/21/17 12:00 99.9 98 17 118/70 100 Mechanical Ventilator 18/17 12:00 50 18/17 11:46 116 18/17 10:46 95 16 100 Mechanical Ventilator 40 18/17 10:35 95 16 100 Mechanical Ventilator 40 18/17 10:35 95 16 40 18/17 10:35 40 18/17 09:23 105 16 100 Mechanical Ventilator 40 18/17 09:11 106 19 100 Mechanical Ventilator 40 18/17 09:11 106 17 40 18/17 09:11 40 18/17 08:11 99.3 99 17 112/72 100 Mechanical Ventilator 40 11/21/16 08:00 50 11/21/16 07:58 100 Height (Feet): 6 Height (Inches): 2.00 Weight (Pounds): 126 General Appearance: no acute distress HEENT: status post trach Respiratory/Chest: decreased breath sounds Cardiovascular: normal rate, regular rhythm Abdomen: normal bowel sounds, soft, non tender, non distended Microbiology Date/Time Source Procedure Growth Status 11/19/16 20:30 Stool Clostridium difficile Toxin Assay - Final Complete Laboratory Tests Test 11/21/16 11:50 11/22/16 04:00 Body Fluid Source Pleural fluid Body Fluid Volume 8.0 mL Body Fluid Appearance Slightly turbid Body Fluid RBC 423 /CUMM Body Fluid Total Nucleated Cells 78 /CUMM Body Fluid Polynuclear WBCs (%) 45 % Body Fluid Mononuclear WBCs (%) 55 % Body Fluid Mesothelial Cells (%) 1 % Body Fluid Glucose Pending Body Fluid Total Protein Pending Body Fluid Albumin Pending White Blood Count 14.9 K/UL (4.8-10.8) H Red Blood Count 2.80 M/UL (4.70-6.10) L Hemoglobin 7.8 G/DL (14.2-18.0) L Hematocrit 25.1 % (42.0-52.0) L Mean Corpuscular Volume 90 FL (80-99) Mean Corpuscular Hemoglobin 28.0 PG (27.0-31.0) Mean Corpuscular Hemoglobin Concent 31.3 G/DL (32.0-36.0) L Red Cell Distribution Width 18.1 % (11.6-14.8) H Platelet Count 206 K/UL (150-450) Mean Platelet Volume 7.2 FL (6.5-10.1) Neutrophils (%) (Auto) % (45.0-75.0) Lymphocytes (%) (Auto) % (20.0-45.0) Monocytes (%) (Auto) % (1.0-10.0) Eosinophils (%) (Auto) % (0.0-3.0) Basophils (%) (Auto) % (0.0-2.0) Neutrophils % (Manual) Pending Lymphocytes % (Manual) Pending Platelet Estimate Pending Platelet Morphology Pending Sodium Level 138 mEQ/L (135-145) Potassium Level 3.8 mEQ/L (3.4-4.9) Chloride Level 96 mEQ/L (98-107) L Carbon Dioxide Level 35 mEQ/L (20-30) H Anion Gap 7 (5-15) Blood Urea Nitrogen 12 mg/dL (7-23) Creatinine 0.5 mg/dL (0.7-1.2) L Estimat Glomerular Filtration Rate > 60 mL/min (>60) Glucose Level 71 mg/dL (74-106) L Calcium Level 7.8 mg/dL (8.6-10.2) L Total Bilirubin 0.3 mg/dL (0.0-1.2) Aspartate Amino Transf (AST/SGOT) 31 U/L (5-40) Alanine Aminotransferase (ALT/SGPT) 19 U/L (3-41) Alkaline Phosphatase 201 U/L (40-129) H Pro-B-Type Natriuretic Peptide 1546 pg/mL (0-125) H Total Protein 4.8 g/dL (6.6-8.7) L Albumin 1.2 g/dL (3.5-5.2) L Globulin 3.6 g/dL Albumin/Globulin Ratio 0.3 (1.0-2.7) L Current Medications Medications (Trade) Dose Ordered Sig/Shraddha Route PRN Reason Start Time Stop Time Status Last Admin Dose Admin Acetaminophen (Tylenol) 650 mg Q4H PRN ORAL fever>100.5 11/02/16 17:00 12/02/16 16:59 11/22/16 06:12 Acetaminophen 650 mg 650 mg Q4H PRN GT headache 11/03/16 08:00 12/03/16 07:59 11/20/16 17:56 Colistimethate Sodium 150 mg 150 mg Q12HR@10,22 INH 11/09/16 22:00 11/22/16 23:59 11/21/16 21:13 Dextrose (Dextrose 50%) STAT PRN IV Hypoglycemia 11/02/16 17:00 12/02/16 16:59 Insulin Aspart (NovoLOG) start when feeding started Q6HR SUBQ 11/02/16 18:00 12/02/16 17:59 11/21/16 18:05 Lansoprazole (Prevacid) 30 mg DAILY GT 10/31/16 09:00 11/30/16 08:59 11/21/16 08:53 Levalbuterol HCl (Xopenex) 1.25 mg Q4H PRN HHN Shortness of Breath 11/17/16 16:30 11/22/16 16:29 11/22/16 05:01 Levofloxacin 150 ml @ 100 mls/hr Q24H IVPB 11/11/16 14:30 12/22/16 14:29 11/21/16 14:48 Linezolid (Zyvox) 300 ml @ 300 mls/hr Q12HR IVPB 11/09/16 21:00 11/22/16 23:59 11/21/16 21:09 Meropenem/Sodium Chloride (Merrem/Sodium Chloride) 110 ml @ 220 mls/hr Q8HR IVPB 11/15/16 22:00 11/22/16 21:59 11/22/16 05:57 Metoclopramide HCl (Reglan) 10 mg THREE TIMES A DAY GT 10/24/16 19:00 11/23/16 18:59 11/21/16 18:04 Micafungin Sodium 100 mg/Sodium Chloride 110 ml @ 110 mls/hr Q24H IVPB 11/10/16 20:00 11/23/16 23:59 11/21/16 20:06 Ondansetron HCl (Zofran) 4 mg Q6H PRN IVP Nausea & Vomiting 11/02/16 17:00 12/02/16 16:59 Polyethylene Glycol (Miralax) 17 gm DAILYPRN PRN GT Constipation 10/25/16 01:00 11/24/16 00:59 11/03/16 00:00 Sodium Chloride 500 ml @ 999 mls/hr PRN PRN IVPB For hypotension 11/09/16 17:15 12/09/16 17:14 11/10/16 22:00 NAOMI GEORGE November 22, 2016 08:01
[2016-11-22 08:19] LABS: MEAN CORPUSCULAR HEMOGLOBIN 28.3 PG (27.0-31.0); MEAN CORPUSCULAR HGB CONC 31.9 G/DL (32.0-36.0); MEAN CORPUSCULAR VOLUME 88 FL (80-99); MEAN PLATELET VOLUME 6.9 FL (6.5-10.1); PLATELET COUNT 190 K/UL (150-450); RED BLOOD COUNT 2.72 M/UL (4.70-6.10); RED CELL DISTRIBUTION WIDTH 18.6 % (11.6-14.8); WHITE BLOOD COUNT 13.1 K/UL (4.8-10.8)
[2016-11-22] MEDS: Colistin for inhalation INH SCH ×2 (09:13→21:05)
[2016-11-22] MEDS ORDERED: NS 275ml ONE ×2 (09:33→10:14)
[2016-11-22 09:48] LABS: BAND NEUTROPHILS % (MANUAL) 1 % (0-8); BASOPHILS % (MANUAL) 1 % (0-2); EOSINOPHILS % (MANUAL) 0 % (0-3); LYMPHOCYTES % (MANUAL) 7 % (20-45); NEUTROPHILS % (MANUAL) 89 % (45-75); PLATELET ESTIMATE ADEQUATE; PLATELET MORPHOLOGY NORMAL; TOTAL CELLS COUNTED 100
[2016-11-22 09:49] LABS: ANISOCYTOSIS 2+; HYPOCHROMASIA 1+
[2016-11-22] MEDS ORDERED: Tubing IV Secondary IV ONE (10:14)
[2016-11-22 10:21] LABS: ANISOCYTOSIS 2+; BAND NEUTROPHILS % (MANUAL) 1 % (0-8); BASOPHILS % (MANUAL) 1 % (0-2); EOSINOPHILS % (MANUAL) 1 % (0-3); LYMPHOCYTES % (MANUAL) 4 % (20-45); NEUTROPHILS % (MANUAL) 86 % (45-75); PLATELET ESTIMATE ADEQUATE; PLATELET MORPHOLOGY NORMAL; TOTAL CELLS COUNTED 100
[2016-11-22 10:22] LABS: HYPOCHROMASIA 2+
--- NOTE | 2016-11-22 11:23 | Pulmonology Progress Note ---
Assessment/Plan Problems: (1) Severe sepsis (2) Abdominal distention (3) Respiratory failure (4) COPD exacerbation (5) Emphysema of lung (6) Colonic mass Assessment/Plan Respiratory: monitor respiratory rate, adjust FIO2, CXR Cardiac: continue pressors, continue to monitor HR/BP Renal: F/U I&O, keep IV fluid Infectious Disease: check cultures Gastrointestinal: continue feedings/current rate, hold feedings Endocrine: monitor blood sugar, check TSH, continue sliding scale insulin Hematologic: transfuse if hgb<8.5 Neurologic: PRN Ativan, PRN Morphine, keep patient comfortable Affect: PRN ativan Prophylaxis: Heparin Notes Reviewed: manager presentation, cardio 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, consultants, case monitor Subjective ROS Limited/Unobtainable: No Constitutional: Reports: no symptoms HEENT: Repors: no symptoms Allergies: Coded Allergies: No Known Allergies (Unverified , 06/17/16) Objective Last 24 Hour Vital Signs Date Time Temp Pulse Resp B/P Pulse Ox O2 Delivery O2 Flow Rate FiO2 11/22/16 11:08 98 18 40 11/22/16 09:29 96 18 100 Mechanical Ventilator 40 11/22/16 09:19 93 18 98 Mechanical Ventilator 40 11/22/16 09:19 40 11/22/16 09:07 103 18 40 11/22/16 08:00 97.5 98 17 99/64 100 Mechanical Ventilator 40 11/22/16 08:00 40 11/22/16 08:00 94 11/22/16 06:53 95 20 40 11/22/16 05:23 104 16 100 Mechanical Ventilator 40 11/22/16 05:03 106 20 40 11/22/16 05:03 40 11/22/16 05:02 106 19 100 Mechanical Ventilator 40 11/22/16 04:03 98.2 98 16 117/61 100 Mechanical Ventilator 40 11/22/16 04:00 40 11/22/16 03:37 99 11/22/16 02:45 105 17 40 11/22/16 00:23 111 16 40 11/22/16 00:00 40 11/21/16 23:45 99 11/21/16 23:15 40 11/21/16 23:14 105 21 97 Mechanical Ventilator 40 11/21/16 23:13 105 18 40 11/21/16 21:25 92 18 100 Mechanical Ventilator 40 11/21/16 21:16 102 18 40 11/21/16 21:15 40 11/21/16 21:15 89 16 98 Mechanical Ventilator 40 11/21/16 20:17 97.7 114 16 108/77 98 Mechanical Ventilator 40 11/21/16 20:00 40 11/21/16 19:30 96 16 100 Mechanical Ventilator 40 11/21/16 19:26 114 17 40 11/21/16 19:23 117 11/21/16 19:20 40 11/21/16 19:20 93 19 97 Mechanical Ventilator 40 11/21/16 16:58 111 20 40 11/21/16 16:00 98.2 103 22 104/73 100 Mechanical Ventilator 40 11/21/16 16:00 103 11/21/16 16:00 50 11/21/16 14:54 97 19 97 Mechanical Ventilator 40 11/21/16 14:54 40 11/21/16 14:53 97 16 40 11/21/16 13:26 108 16 40 11/21/16 12:00 99.9 98 17 118/70 100 Mechanical Ventilator 11/21/16 12:00 50 11/21/16 11:46 116 Intake and Output 11/21/16 11/22/16 19:00 07:00 Intake Total 885 ml 960 ml Output Total 550 ml 400 ml Balance 335 ml 560 ml Free Water 300 ml 150 ml IV Total 630 ml Tube Feeding 585 ml 130 ml Other 50 ml Output Urine Total 550 ml 400 ml # Bowel Movements 1 1 Objective Status: awake HEENT: atraumatic, normocephalic Lungs: clear, decreased breath sounds Heart: HR/BP stable Abdomen: soft, non-tender Extremities: no C/C/E, edema Microbiology Date/Time Source Procedure Growth Status 11/21/16 11:50 Ascities Fluid Gram Stain - Final Resulted 11/21/16 11:50 Ascities Fluid Body Fluid Culture - Preliminary NO GROWTH AFTER 24 HOURS Resulted 11/19/16 20:30 Stool Clostridium difficile Toxin Assay - Final Complete Laboratory Tests 11/21/16 11:50: Body Fluid Source Pleural fluid, Body Fluid Volume 8.0, Body Fluid Appearance Slightly turbid, Body Fluid RBC 423, Body Fluid Total Nucleated Cells 78, Body Fluid Polynuclear WBCs (%) 45, Body Fluid Mononuclear WBCs (%) 55, Body Fluid Mesothelial Cells (%) 1, Body Fluid Glucose [Pending], Body Fluid Total Protein [Pending], Body Fluid Albumin [Pending] 11/22/16 04:00: White Blood Count 14.9H, Red Blood Count 2.80L, Hemoglobin 7.8L, Hematocrit 25.1L, Mean Corpuscular Volume 90, Mean Corpuscular Hemoglobin 28.0, Mean Corpuscular Hemoglobin Concent 31.3L, Red Cell Distribution Width 18.1H, Platelet Count 206, Mean Platelet Volume 7.2, Neutrophils (%) (Auto) , Lymphocytes (%) (Auto) , Monocytes (%) (Auto) , Eosinophils (%) (Auto) , Basophils (%) (Auto) , Differential Total Cells Counted 100, Neutrophils % ( Manual) 86H, Lymphocytes % (Manual) 4L, Monocytes % (Manual) 7, Eosinophils % ( Manual) 1, Basophils % (Manual) 1, Band Neutrophils 1, Platelet Estimate Adequate, Platelet Morphology Normal, Hypochromasia 2+, Anisocytosis 2+, Sodium Level 138, Potassium Level 3.8, Chloride Level 96L, Carbon Dioxide Level 35H, Anion Gap 7, Blood Urea Nitrogen 12, Creatinine 0.5L, Estimat Glomerular Filtration Rate > 60, Glucose Level 71L, Calcium Level 7.8L, Total Bilirubin 0.3 , Aspartate Amino Transf (AST/SGOT) 31, Alanine Aminotransferase (ALT/SGPT) 19, Alkaline Phosphatase 201H, Pro-B-Type Natriuretic Peptide 1546H, Total Protein 4.8L, Albumin 1.2L, Globulin 3.6, Albumin/Globulin Ratio 0.3L 11/22/16 07:59: White Blood Count 13.1H, Red Blood Count 2.72L, Hemoglobin 7.7L, Hematocrit 24.1L, Mean Corpuscular Volume 88, Mean Corpuscular Hemoglobin 28.3, Mean Corpuscular Hemoglobin Concent 31.9L, Red Cell Distribution Width 18.6H, Platelet Count 190, Mean Platelet Volume 6.9, Neutrophils (%) (Auto) , Lymphocytes (%) (Auto) , Monocytes (%) (Auto) , Eosinophils (%) (Auto) , Basophils (%) (Auto) , Differential Total Cells Counted 100, Neutrophils % ( Manual) 89H, Lymphocytes % (Manual) 7L, Monocytes % (Manual) 2, Eosinophils % ( Manual) 0, Basophils % (Manual) 1, Band Neutrophils 1, Platelet Estimate Adequate, Platelet Morphology Normal, Hypochromasia 1+, Anisocytosis 2+ Current Medications Medications (Trade) Dose Ordered Sig/Shraddha Route PRN Reason Start Time Stop Time Status Last Admin Dose Admin Acetaminophen (Tylenol) 650 mg Q4H PRN ORAL fever>100.5 11/02/16 17:00 12/02/16 16:59 11/22/16 06:12 Acetaminophen 650 mg 650 mg Q4H PRN GT headache 11/03/16 08:00 12/03/16 07:59 11/20/16 17:56 Colistimethate Sodium 150 mg 150 mg Q12HR@10,22 INH 11/09/16 22:00 11/22/16 23:59 11/22/16 09:13 Dextrose (Dextrose 50%) STAT PRN IV Hypoglycemia 11/02/16 17:00 12/02/16 16:59 Insulin Aspart (NovoLOG) start when feeding started Q6HR SUBQ 11/02/16 18:00 12/02/16 17:59 11/21/16 18:05 Lansoprazole (Prevacid) 30 mg DAILY GT 10/31/16 09:00 11/30/16 08:59 11/22/16 08:45 Levalbuterol HCl (Xopenex) 1.25 mg Q4H PRN HHN Shortness of Breath 11/17/16 16:30 11/22/16 16:29 11/22/16 05:01 Levofloxacin 150 ml @ 100 mls/hr Q24H IVPB 11/11/16 14:30 12/22/16 14:29 11/21/16 14:48 Linezolid (Zyvox) 300 ml @ 300 mls/hr Q12HR IVPB 11/09/16 21:00 11/22/16 23:59 11/22/16 08:46 Meropenem/Sodium Chloride (Merrem/Sodium Chloride) 110 ml @ 220 mls/hr Q8HR IVPB 11/15/16 22:00 11/22/16 21:59 11/22/16 05:57 Metoclopramide HCl (Reglan) 10 mg THREE TIMES A DAY GT 10/24/16 19:00 11/23/16 18:59 11/22/16 08:45 Micafungin Sodium 100 mg/Sodium Chloride 110 ml @ 110 mls/hr Q24H IVPB 11/10/16 20:00 11/23/16 23:59 11/21/16 20:06 Ondansetron HCl (Zofran) 4 mg Q6H PRN IVP Nausea & Vomiting 11/02/16 17:00 12/02/16 16:59 Polyethylene Glycol (Miralax) 17 gm DAILYPRN PRN GT Constipation 10/25/16 01:00 11/24/16 00:59 11/03/16 00:00 Sodium Chloride 500 ml @ 999 mls/hr PRN PRN IVPB For hypotension 11/09/16 17:15 12/09/16 17:14 11/10/16 22:00 REN WRIGHT November 22, 2016 11:22
[2016-11-22 11:44] VITALS: BP 105/98
--- NOTE | 2016-11-22 11:54 | Wound Care Consultation ---
Wound Assessment Wound Assessment : Wound Present on Admission: No New Wound: No Status Change of Wound: No Wound Location Body Site Modif: mid, posterior Wound Location Body Site: perineal area - scrotum Wound Type: chemical burn - with erosion Nisha Test: Does not Nisha Wound Thickness: Partial Thickness Wound Length: 1.5 Wound Width: 1.0 Wound Depth: 0.1 Percent of Wound [place]/Red: 80 Percent of Wound Bed Yellow/Wh: 20 Wound Drainage Description: Serosanguineous Wound Drainage Amount: Scant Wound Drainage Odor: None/Absent Tissue Surrounding Wound: Intact Wound Comment #1 Chemical burn with erosion on posterior scrotum area Recommendation -Chemical burn on posterior scrotum Cleanse with saline, pat dry, apply Triad cream, cover with Biatain silicone daily and PRN soiled/dislodged -Keep clean and dry -Turn and reposition -Optimize nutrition -Assess and f/u accordingly for any changes CARRILLO HARRISON RN November 22, 2016 11:54
--- NOTE | 2016-11-22 12:55 | Diagnostic Imaging Report ---
Indication: Dyspnea Comparison: 11/21/16 A single view chest radiograph was obtained. Findings: Extensive infiltrates again demonstrated within the right lung unchanged. Heart size remains stable. Bilateral lower lobe interstitial opacities also noted. PICC line and tracheostomy are again noted. Impression: No significant exchange clerk one-day
--- NOTE | 2016-11-22 13:39 | Cardiac Electrophysiology PN ---
Assessment/Plan Assessment/Plan 1. Sinus tachycardia due to sepsis. HR better. No svt or fib. 2. Hypotension. Due to sepsis and anemia.Resolved. On ABx. S/P PRBC 11/18/16. 3. Severe COPD and pulmonary hypertension 4. Ventilator-dependant respiratory failure, status post tracheostomy. 5. Dysphagia, status post percutaneous endoscopic gastrostomy placement. 6. Sepsis due to MDR ACB and PSA , on 3 intravenous antibiotics per ID. 7. Lung abscess 8. Colonic mass and anemia.S/P transfusion. 9. Generalized edema. Not dehydrated or azotemic. DC iv fluid DW RN Subjective Subjective On Vent via tracheostomy with PEG.Remained in SR . Comfortable in NAD. Objective Last 24 Hour Vital Signs Date Time Temp Pulse Resp B/P Pulse Ox O2 Delivery O2 Flow Rate FiO2 11/22/16 13:08 92 20 40 11/22/16 11:44 97.7 91 18 105/98 100 Mechanical Ventilator 40 11/22/16 11:08 98 18 40 11/22/16 09:29 96 18 100 Mechanical Ventilator 40 11/22/16 09:19 93 18 98 Mechanical Ventilator 40 11/22/16 09:19 40 11/22/16 09:07 103 18 40 11/22/16 08:00 97.5 98 17 99/64 100 Mechanical Ventilator 40 11/22/16 08:00 40 11/22/16 08:00 94 11/22/16 06:53 95 20 40 11/22/16 05:23 104 16 100 Mechanical Ventilator 40 11/22/16 05:03 106 20 40 11/22/16 05:03 40 11/22/16 05:02 106 19 100 Mechanical Ventilator 40 11/22/16 04:03 98.2 98 16 117/61 100 Mechanical Ventilator 40 11/22/16 04:00 40 11/22/16 03:37 99 11/22/16 02:45 105 17 40 11/22/16 00:23 111 16 40 11/22/16 00:00 40 11/21/16 23:45 99 11/21/16 23:15 40 11/21/16 23:14 105 21 97 Mechanical Ventilator 40 11/21/16 23:13 105 18 40 11/21/16 21:25 92 18 100 Mechanical Ventilator 40 11/21/16 21:16 102 18 40 11/21/16 21:15 40 5/18/17 21:15 89 16 98 Mechanical Ventilator 40 11/21/16 20:17 97.7 114 16 108/77 98 Mechanical Ventilator 40 11/21/16 20:00 40 11/21/16 19:30 96 16 100 Mechanical Ventilator 40 11/21/16 19:26 114 17 40 11/21/16 19:23 117 11/21/16 19:20 40 11/21/16 19:20 93 19 97 Mechanical Ventilator 40 11/21/16 16:58 111 20 40 11/21/16 16:00 98.2 103 22 104/73 100 Mechanical Ventilator 40 11/21/16 16:00 103 11/21/16 16:00 50 11/21/16 14:54 97 19 97 Mechanical Ventilator 40 11/21/16 14:54 40 11/21/16 14:53 97 16 40 Intake and Output 11/21/16 11/22/16 19:00 07:00 Intake Total 885 ml 960 ml Output Total 550 ml 400 ml Balance 335 ml 560 ml Free Water 300 ml 150 ml IV Total 630 ml Tube Feeding 585 ml 130 ml Other 50 ml Output Urine Total 550 ml 400 ml # Bowel Movements 1 1 Laboratory Tests Test 11/22/16 04:00 11/22/16 07:59 White Blood Count 14.9 K/UL (4.8-10.8) H 13.1 K/UL (4.8-10.8) H Red Blood Count 2.80 M/UL (4.70-6.10) L 2.72 M/UL (4.70-6.10) L Hemoglobin 7.8 G/DL (14.2-18.0) L 7.7 G/DL (14.2-18.0) L Hematocrit 25.1 % (42.0-52.0) L 24.1 % (42.0-52.0) L Mean Corpuscular Volume 90 FL (80-99) 88 FL (80-99) Mean Corpuscular Hemoglobin 28.0 PG (27.0-31.0) 28.3 PG (27.0-31.0) Mean Corpuscular Hemoglobin Concent 31.3 G/DL (32.0-36.0) L 31.9 G/DL (32.0-36.0) L Red Cell Distribution Width 18.1 % (11.6-14.8) H 18.6 % (11.6-14.8) H Platelet Count 206 K/UL (150-450) 190 K/UL (150-450) Mean Platelet Volume 7.2 FL (6.5-10.1) 6.9 FL (6.5-10.1) Neutrophils (%) (Auto) % (45.0-75.0) % (45.0-75.0) Lymphocytes (%) (Auto) % (20.0-45.0) % (20.0-45.0) Monocytes (%) (Auto) % (1.0-10.0) % (1.0-10.0) Eosinophils (%) (Auto) % (0.0-3.0) % (0.0-3.0) Basophils (%) (Auto) % (0.0-2.0) % (0.0-2.0) Differential Total Cells Counted 100 100 Neutrophils % (Manual) 86 % (45-75) H 89 % (45-75) H Lymphocytes % (Manual) 4 % (20-45) L 7 % (20-45) L Monocytes % (Manual) 7 % (1-10) 2 % (1-10) Eosinophils % (Manual) 1 % (0-3) 0 % (0-3) Basophils % (Manual) 1 % (0-2) 1 % (0-2) Band Neutrophils 1 % (0-8) 1 % (0-8) Platelet Estimate Adequate Adequate Platelet Morphology Normal Normal Hypochromasia 2+ 1+ Anisocytosis 2+ 2+ Sodium Level 138 mEQ/L (135-145) Potassium Level 3.8 mEQ/L (3.4-4.9) Chloride Level 96 mEQ/L (98-107) L Carbon Dioxide Level 35 mEQ/L (20-30) H Anion Gap 7 (5-15) Blood Urea Nitrogen 12 mg/dL (7-23) Creatinine 0.5 mg/dL (0.7-1.2) L Estimat Glomerular Filtration Rate > 60 mL/min (>60) Glucose Level 71 mg/dL (74-106) L Calcium Level 7.8 mg/dL (8.6-10.2) L Total Bilirubin 0.3 mg/dL (0.0-1.2) Aspartate Amino Transf (AST/SGOT) 31 U/L (5-40) Alanine Aminotransferase (ALT/SGPT) 19 U/L (3-41) Alkaline Phosphatase 201 U/L (40-129) H Pro-B-Type Natriuretic Peptide 1546 pg/mL (0-125) H Total Protein 4.8 g/dL (6.6-8.7) L Albumin 1.2 g/dL (3.5-5.2) L Globulin 3.6 g/dL Albumin/Globulin Ratio 0.3 (1.0-2.7) L Microbiology Date/Time Source Procedure Growth Status 11/21/16 11:50 Ascities Fluid Gram Stain - Final Resulted 11/21/16 11:50 Ascities Fluid Body Fluid Culture - Preliminary NO GROWTH AFTER 24 HOURS Resulted 11/19/16 20:30 Stool Clostridium difficile Toxin Assay - Final Complete Objective HEAD AND NECK: No jugular venous distention, tracheostomy intact. LUNGS: Clear bilaterally. CARDIOVASCULAR: Tachycardic S1 and S2 with no gallop or murmur. ABDOMEN: Soft. G-tube intact. EXTREMITIES: Bilateral arm edema.PICC line in place. OSWALD HILLS November 22, 2016 13:39
[2016-11-22 15:25] LABS: PROTEIN, BODY FLUID 1.9 g/dL (.)
[2016-11-22 16:02] VITALS: BP 101/73
--- NOTE | 2016-11-22 17:22 | Internal Med Progress Note ---
Subjective Date of Service: November 22, 2016 Physician Name VerdinTadeo dockery Attending Physician Steve Rader MD Current Medications Medications (Trade) Dose Ordered Sig/Shraddha Route PRN Reason Start Time Stop Time Status Last Admin Dose Admin Acetaminophen (Tylenol) 650 mg Q4H PRN ORAL fever>100.5 11/02/16 17:00 12/02/16 16:59 11/22/16 06:12 Acetaminophen 650 mg 650 mg Q4H PRN GT headache 11/03/16 08:00 12/03/16 07:59 11/20/16 17:56 Colistimethate Sodium 150 mg 150 mg Q12HR@10,22 INH 11/09/16 22:00 11/29/16 21:59 11/22/16 09:13 Dextrose (Dextrose 50%) STAT PRN IV Hypoglycemia 11/02/16 17:00 12/02/16 16:59 Insulin Aspart (NovoLOG) start when feeding started Q6HR SUBQ 11/02/16 18:00 12/02/16 17:59 11/21/16 18:05 Lansoprazole (Prevacid) 30 mg DAILY GT 10/31/16 09:00 11/30/16 08:59 11/22/16 08:45 Levofloxacin 150 ml @ 100 mls/hr Q24H IVPB 11/11/16 14:30 12/22/16 14:29 11/22/16 15:51 Linezolid (Zyvox) 300 ml @ 300 mls/hr Q12HR IVPB 11/09/16 21:00 11/22/16 23:59 11/22/16 08:46 Meropenem/Sodium Chloride (Merrem/Sodium Chloride) 110 ml @ 220 mls/hr Q8HR IVPB 11/15/16 22:00 11/22/16 21:59 11/22/16 15:08 Metoclopramide HCl (Reglan) 10 mg THREE TIMES A DAY GT 10/24/16 19:00 11/23/16 18:59 11/22/16 13:48 Micafungin Sodium 100 mg/Sodium Chloride 110 ml @ 110 mls/hr Q24H IVPB 11/10/16 20:00 11/23/16 23:59 11/21/16 20:06 Ondansetron HCl (Zofran) 4 mg Q6H PRN IVP Nausea & Vomiting 11/02/16 17:00 12/02/16 16:59 Polyethylene Glycol (Miralax) 17 gm DAILYPRN PRN GT Constipation 10/25/16 01:00 11/24/16 00:59 11/03/16 00:00 Sodium Chloride 500 ml @ 999 mls/hr PRN PRN IVPB For hypotension 11/09/16 17:15 12/09/16 17:14 11/10/16 22:00 Allergies: Coded Allergies: No Known Allergies (Unverified , 06/17/16) ROS Limited/Unobtainable: No Constitutional: Reports: no symptoms HEENT: Reports: no symptoms Cardiovascular: Reports: no symptoms Respiratory: Reports: no symptoms Gastrointestinal/Abdominal: Reports: no symptoms Genitourinary: Reports: no symptoms Neurologic/Psychiatric: Reports: no symptoms Subjective 66 YO M admitted with respiratory failure. JORDAN. Trach with mech vent. Cover for Int Med-Dr Rader. Await thoracentesis today Objective Last Vital Signs Date Time Temp Pulse Resp B/P Pulse Ox O2 Delivery O2 Flow Rate FiO2 11/22/16 16:41 92 18 40 11/22/16 16:02 96.6 101/73 100 Mechanical Ventilator 11/21/16 04:00 40.0 Laboratory Tests Test 11/22/16 04:00 11/22/16 07:59 White Blood Count 14.9 K/UL (4.8-10.8) H 13.1 K/UL (4.8-10.8) H Red Blood Count 2.80 M/UL (4.70-6.10) L 2.72 M/UL (4.70-6.10) L Hemoglobin 7.8 G/DL (14.2-18.0) L 7.7 G/DL (14.2-18.0) L Hematocrit 25.1 % (42.0-52.0) L 24.1 % (42.0-52.0) L Mean Corpuscular Volume 90 FL (80-99) 88 FL (80-99) Mean Corpuscular Hemoglobin 28.0 PG (27.0-31.0) 28.3 PG (27.0-31.0) Mean Corpuscular Hemoglobin Concent 31.3 G/DL (32.0-36.0) L 31.9 G/DL (32.0-36.0) L Red Cell Distribution Width 18.1 % (11.6-14.8) H 18.6 % (11.6-14.8) H Platelet Count 206 K/UL (150-450) 190 K/UL (150-450) Mean Platelet Volume 7.2 FL (6.5-10.1) 6.9 FL (6.5-10.1) Neutrophils (%) (Auto) % (45.0-75.0) % (45.0-75.0) Lymphocytes (%) (Auto) % (20.0-45.0) % (20.0-45.0) Monocytes (%) (Auto) % (1.0-10.0) % (1.0-10.0) Eosinophils (%) (Auto) % (0.0-3.0) % (0.0-3.0) Basophils (%) (Auto) % (0.0-2.0) % (0.0-2.0) Differential Total Cells Counted 100 100 Neutrophils % (Manual) 86 % (45-75) H 89 % (45-75) H Lymphocytes % (Manual) 4 % (20-45) L 7 % (20-45) L Monocytes % (Manual) 7 % (1-10) 2 % (1-10) Eosinophils % (Manual) 1 % (0-3) 0 % (0-3) Basophils % (Manual) 1 % (0-2) 1 % (0-2) Band Neutrophils 1 % (0-8) 1 % (0-8) Platelet Estimate Adequate Adequate Platelet Morphology Normal Normal Hypochromasia 2+ 1+ Anisocytosis 2+ 2+ Sodium Level 138 mEQ/L (135-145) Potassium Level 3.8 mEQ/L (3.4-4.9) Chloride Level 96 mEQ/L (98-107) L Carbon Dioxide Level 35 mEQ/L (20-30) H Anion Gap 7 (5-15) Blood Urea Nitrogen 12 mg/dL (7-23) Creatinine 0.5 mg/dL (0.7-1.2) L Estimat Glomerular Filtration Rate > 60 mL/min (>60) Glucose Level 71 mg/dL (74-106) L Calcium Level 7.8 mg/dL (8.6-10.2) L Total Bilirubin 0.3 mg/dL (0.0-1.2) Aspartate Amino Transf (AST/SGOT) 31 U/L (5-40) Alanine Aminotransferase (ALT/SGPT) 19 U/L (3-41) Alkaline Phosphatase 201 U/L (40-129) H Pro-B-Type Natriuretic Peptide 1546 pg/mL (0-125) H Total Protein 4.8 g/dL (6.6-8.7) L Albumin 1.2 g/dL (3.5-5.2) L Globulin 3.6 g/dL Albumin/Globulin Ratio 0.3 (1.0-2.7) L Microbiology Date/Time Source Procedure Growth Status 11/21/16 11:50 Ascities Fluid Gram Stain - Final Resulted 11/21/16 11:50 Ascities Fluid Body Fluid Culture - Preliminary NO GROWTH AFTER 24 HOURS Resulted 11/19/16 20:30 Stool Clostridium difficile Toxin Assay - Final Complete Intake and Output 11/21/16 11/22/16 19:00 07:00 Intake Total 885 ml 960 ml Output Total 550 ml 400 ml Balance 335 ml 560 ml Free Water 300 ml 150 ml IV Total 630 ml Tube Feeding 585 ml 130 ml Other 50 ml Output Urine Total 550 ml 400 ml # Bowel Movements 1 1 Objective General Appearance: moderate distress, thin EENT: PERRL/EOMI, normal ENT inspection Neck: non-tender, normal alignment, supple Cardiovascular: normal peripheral pulses, normal rate, regular rhythm, no gallop/murmur, no JVD Respiratory/Chest: Mech vent; trach; respiratory distress, crackles/rales, rhonchi - bilaterally, expiratory wheezing Abdomen: non tender, soft, no organomegaly, no mass, decreased bowel sounds Extremities: normal range of motion Skin: normal pigmentation, warm/dry Assessment/Plan Problem List: (1) Lung nodule (2) DVT (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 (3) Acute respiratory failure Assessment & Plan: S/P tracheostomy 10/03/16. Cont vent per pulm (4) COPD exacerbation Assessment & Plan: Continue duoneb. Continue vent per pulmonary. (5) Pneumonia Assessment & Plan: Pseudamonas. New RLL consolidation. Continue colistin inh , micafungin, linezolid, levaquin and meropenem per ID (6) Leukocytosis Assessment & Plan: Worsening. Await Culture results. Start meropenem, levaquin, micafungin, colistin (inh) and linezolid per ID (7) Dysphagia Assessment & Plan: See GI consult- S/P PEG 10/04/16. (8) Hypoglycemia Assessment & Plan: D50 prn; decrease insulin sliding scale. (9) Dysuria Assessment & Plan: D/C garcia cath. (10) Severe sepsis Assessment & Plan: Blood cultures X2. Cont meropenem, colistin Inh, levaquin, micafungin and linezolid per ID. (11) Hypotension Assessment & Plan: ICU status for pressors, (12) Gastric mass (13) Mass of colon Assessment & Plan: Cecum and colon masses. See GI note. (14) UTI (urinary tract infection) due to Enterococcus Assessment & Plan: Love. On micafungin. See ID note. (15) Empyema Assessment & Plan: Possible per pulmonary. Cont Micafungin, meropenem, colistin (inh) and linezolid per ID (16) Anemia Assessment & Plan: S/P transfusion 1 unit PRBC (17) Pleural effusion on right Assessment & Plan: S/P Thoracentesis 11/21/16. Status: not improved Assessment/Plan Await placement @ assisted acute care fac ?[facility]? TADEO VERDIN November 22, 2016 17:22
[2016-11-22 20:04] VITALS: BP 118/77
[2016-11-22] MEDS: Micafungin 100 MG in NS 110 ML IVPB SCH (20:09)
[2016-11-22 23:13] VITALS: BP 130/74
[2016-11-23 03:32] VITALS: BP 122/72
[2016-11-23] MEDS: Levalbuterol Inh UD 1.25mg/0.5ml HHN PRN ×2 (05:15→14:28)
[2016-11-23 05:45] LABS: MEAN CORPUSCULAR HGB CONC 31.6 G/DL (32.0-36.0); MEAN CORPUSCULAR VOLUME 89 FL (80-99); MEAN PLATELET VOLUME 7.1 FL (6.5-10.1); PLATELET COUNT 181 K/UL (150-450); RED BLOOD COUNT 3.32 M/UL (4.70-6.10); RED CELL DISTRIBUTION WIDTH 17.6 % (11.6-14.8); WHITE BLOOD COUNT 15.5 K/UL (4.8-10.8)
[2016-11-23 06:04] LABS: ANION GAP 7 (5-15); CALCIUM 7.9 mg/dL (8.6-10.2); CARBON DIOXIDE 36 mEQ/L (20-30); CHLORIDE 96 mEQ/L (98-107); CREATININE 0.5 mg/dL (0.7-1.2); GLOMERULAR FILTRATION RATE > 60 mL/min (>60); HEMOLYSIS 3; POTASSIUM 3.9 mEQ/L (3.4-4.9); SODIUM 139 mEQ/L (135-145)
[2016-11-23] MEDS: NovoLOG Insulin Flexpen SUBQ SCH ×4 (06:30→23:19)
[2016-11-23 07:39] VITALS: BP 103/54
[2016-11-23] MEDS: Dyna-Hex 2% Top Sol 8oz TOPIC SCH (08:53)
[2016-11-23 10:16] LABS: COMMENT,BODY FLUID PATHOLOGIST COMMENT
[2016-11-23] MEDS ORDERED: NS 275ml ONE (10:21)
[2016-11-23] MEDS ORDERED: Tubing Blood Filter IV ONE (10:21)
[2016-11-23] MEDS ORDERED: Tubing IV Secondary IV ONE (10:21)
[2016-11-23] MEDS: Colistin for inhalation INH SCH ×2 (10:34→21:38)
--- NOTE | 2016-11-23 10:51 | Pulmonology Progress Note ---
Assessment/Plan Assessment/Plan ASSESSMENT leukocytosis VAP Pseudomonas UTI /VRE RUL abscess R pleural effusion s/p thoracentesis -560cc on 11/21 acute hypoxemic hypercapnic respiratory failure requiring intubation failure to wean s/p trach 10/03 dysphagia, G tube placement 10/04 acute COPD exacerbation emphysema possible PNA , s/p Rx Pulmonary nodules colon mass Chronic RLE DVT Tobacco abuse Hx HTN DM acute on chronic encephalopathy anemia elevated LFT -resolved PLAN OF CARE JORDAN vent , trach care Pulmonary toilet abx ID follows sputum cx + pseudomonas, urine cx + VRE, Love, blood cx - negative, stool C dif negative T chest -extensive PNA, cavitary lesion, suspicious for abscess RUL s/p thoracentesis 11/21 for R pleural effusion-560 cc pleural fluid cx preliminary negative pathology of pleural fluid negative for malignant cells last CXR 11/22 still with extensive infiltrates CT A/P with evidence of large cecal mass patient declined any GI workup as per GI note s/p steroids, BS management with sensitive SS of insulin strict aspiration precautions, monitor GT feeding tolerance pain management bowel regimen monitor HH, anemia workup with low iron, stool OB positive, s/p Venofer GI follows GI recommended to repeat stool OB in 2-3- weeks PPI LFT stable currently, hepatitis panel negative abdominal US no dilated ducts awaiting for placement to subacute, transfer when placement arranged case discussed and evaluated by supervising physician Subjective Allergies: Coded Allergies: No Known Allergies (Unverified , 06/17/16) Subjective awake, denies congestion, chest pain, SOB leukocytosis trending down, afberile no signs of respiratory distress Objective Last 24 Hour Vital Signs Date Time Temp Pulse Resp B/P Pulse Ox O2 Delivery O2 Flow Rate FiO2 11/23/16 10:34 40 11/23/16 10:34 103 16 100 Mechanical Ventilator 40 11/23/16 10:32 103 16 40 11/23/16 09:12 115 16 40 11/23/16 08:00 50 11/23/16 08:00 114 11/23/16 07:39 97.7 114 18 103/54 96 Mechanical Ventilator 40 11/23/16 07:10 137 16 40 11/23/16 05:26 111 16 100 Mechanical Ventilator 40 11/23/16 05:15 108 16 99 Mechanical Ventilator 40 11/23/16 05:15 40 11/23/16 05:14 108 16 40 5/20/17 04:12 99 11/23/16 04:00 50 11/23/16 03:32 96.8 106 16 122/72 98 Mechanical Ventilator 40 11/23/16 03:06 110 20 40 11/23/16 01:07 108 17 40 11/23/16 00:00 50 11/22/16 23:55 106 11/22/16 23:13 97.7 113 20 130/74 100 Mechanical Ventilator 50 11/22/16 22:56 120 23 50 11/22/16 21:30 50 11/22/16 21:17 125 22 99 Mechanical Ventilator 40 11/22/16 21:08 40 11/22/16 21:08 122 23 98 Mechanical Ventilator 40 11/22/16 21:05 125 23 50 11/22/16 20:04 97.7 120 25 118/77 96 Mechanical Ventilator 40 11/22/16 20:00 40 11/22/16 19:30 101 17 40 11/22/16 18:51 99 11/22/16 16:41 92 18 40 11/22/16 16:16 96 11/22/16 16:02 96.6 101 17 101/73 100 Mechanical Ventilator 40 11/22/16 16:00 40 11/22/16 14:58 97 18 40 11/22/16 13:08 92 20 40 11/22/16 12:00 91 11/22/16 12:00 40 11/22/16 11:44 97.7 91 18 105/98 100 Mechanical Ventilator 40 11/22/16 11:08 98 18 40 Intake and Output 11/22/16 11/23/16 19:00 07:00 Intake Total 1810 ml 690 ml Output Total 350 ml 900 ml Balance 1460 ml -210 ml Free Water 300 ml 150 ml IV Total 560 ml 410 ml Tube Feeding 650 ml 130 ml Blood Product 300 ml Output Urine Total 350 ml 900 ml # Bowel Movements 1 1 Objective General Appearance: no apparent distress, vent AC 600-16-40% HEENT: normocephalic, atraumatic, anicteric Neck: trach, Shiley #8, secretions small , yellow, thin Respiratory/Chest: decreased breath sounds Cardiovascular/Chest: regular rate and rhythm, no JVD, occasionally ST Abdomen: normal bowel sounds, non tender, soft Extremities: normal capillary refill Neurologic: abnormal gait, awake, alert, responsive Musculoskeletal: normal muscle bulk Microbiology Date/Time Source Procedure Growth Status 11/21/16 11:50 Ascities Fluid Gram Stain - Final Resulted 11/21/16 11:50 Ascities Fluid Body Fluid Culture - Preliminary NO GROWTH AFTER 48 HOURS Resulted Laboratory Tests 11/23/16 05:20: White Blood Count 15.5H, Red Blood Count 3.32L, Hemoglobin 9.3L, Hematocrit 29.5L, Mean Corpuscular Volume 89, Mean Corpuscular Hemoglobin 28.0, Mean Corpuscular Hemoglobin Concent 31.6L, Red Cell Distribution Width 17.6H, Platelet Count 181, Mean Platelet Volume 7.1, Neutrophils (%) (Auto) , Lymphocytes (%) (Auto) , Monocytes (%) (Auto) , Eosinophils (%) (Auto) , Basophils (%) (Auto) , Sodium Level 139, Potassium Level 3.9, Chloride Level 96L , Carbon Dioxide Level 36H, Anion Gap 7, Blood Urea Nitrogen 12, Creatinine 0.5L , Estimat Glomerular Filtration Rate > 60, Glucose Level 56L, Calcium Level 7.9L Current Medications Medications (Trade) Dose Ordered Sig/Shraddha Route PRN Reason Start Time Stop Time Status Last Admin Dose Admin Acetaminophen (Tylenol) 650 mg Q4H PRN ORAL fever>100.5 11/02/16 17:00 12/02/16 16:59 11/22/16 06:12 Acetaminophen 650 mg 650 mg Q4H PRN GT headache 11/03/16 08:00 12/03/16 07:59 11/20/16 17:56 Chlorhexidine Gluconate (Mariluz-Hex 2%) 1 applic DAILY TOPIC 11/23/16 09:00 12/23/16 08:59 11/23/16 08:53 Colistimethate Sodium 150 mg 150 mg Q12HR@10,22 INH 11/09/16 22:00 11/29/16 21:59 11/23/16 10:34 Dextrose (Dextrose 50%) STAT PRN IV Hypoglycemia 11/02/16 17:00 12/02/16 16:59 Insulin Aspart (NovoLOG) start when feeding started Q6HR SUBQ 11/02/16 18:00 12/02/16 17:59 11/22/16 23:19 Lansoprazole (Prevacid) 30 mg DAILY GT 10/31/16 09:00 11/30/16 08:59 11/23/16 08:52 Levalbuterol HCl (Xopenex) 1.25 mg Q4H PRN HHN Shortness of Breath 11/23/16 01:45 11/28/16 01:44 11/23/16 05:15 Levofloxacin (Levaquin 750mg/ D5W) 150 ml @ 100 mls/hr Q24H IVPB 11/11/16 14:30 12/22/16 14:29 11/22/16 15:51 Metoclopramide HCl (Reglan) 10 mg THREE TIMES A DAY GT 10/24/16 19:00 11/23/16 18:59 11/23/16 08:52 Micafungin Sodium 100 mg/Sodium Chloride 110 ml @ 110 mls/hr Q24H IVPB 11/10/16 20:00 11/23/16 23:59 11/22/16 20:09 Ondansetron HCl (Zofran) 4 mg Q6H PRN IVP Nausea & Vomiting 11/02/16 17:00 12/02/16 16:59 Polyethylene Glycol (Miralax) 17 gm DAILYPRN PRN GT Constipation 10/25/16 01:00 11/24/16 00:59 11/03/16 00:00 Sodium Chloride (NS) 500 ml @ 999 mls/hr PRN PRN IVPB For hypotension 11/09/16 17:15 12/09/16 17:14 11/10/16 22:00 Hua SorensonKatia sampson NP November 23, 2016 10:51
[2016-11-23 12:00] VITALS: BP 108/72
[2016-11-23] MEDS: Acetaminophen 650mg/20.3ml GT PRN (12:15)
--- NOTE | 2016-11-23 13:48 | Internal Med Progress Note ---
Subjective Date of Service: November 23, 2016 Physician Name Tsang,Tadeo Attending Physician Steve Rader MD Current Medications Medications (Trade) Dose Ordered Sig/Shraddha Route PRN Reason Start Time Stop Time Status Last Admin Dose Admin Acetaminophen (Tylenol) 650 mg Q4H PRN ORAL fever>100.5 11/02/16 17:00 12/02/16 16:59 11/22/16 06:12 Acetaminophen 650 mg 650 mg Q4H PRN GT headache 11/03/16 08:00 12/03/16 07:59 11/23/16 12:15 Chlorhexidine Gluconate (Mariluz-Hex 2%) 1 applic DAILY TOPIC 11/23/16 09:00 12/23/16 08:59 11/23/16 08:53 Colistimethate Sodium 150 mg 150 mg Q12HR@10,22 INH 11/09/16 22:00 11/29/16 21:59 11/23/16 10:34 Dextrose (Dextrose 50%) STAT PRN IV Hypoglycemia 11/02/16 17:00 12/02/16 16:59 Insulin Aspart (NovoLOG) start when feeding started Q6HR SUBQ 11/02/16 18:00 12/02/16 17:59 11/22/16 23:19 Lansoprazole (Prevacid) 30 mg DAILY GT 10/31/16 09:00 11/30/16 08:59 11/23/16 08:52 Levalbuterol HCl (Xopenex) 1.25 mg Q4H PRN HHN Shortness of Breath 11/23/16 01:45 11/28/16 01:44 11/23/16 05:15 Levofloxacin (Levaquin 750mg/ D5W) 150 ml @ 100 mls/hr Q24H IVPB 11/11/16 14:30 12/22/16 14:29 11/22/16 15:51 Metoclopramide HCl (Reglan) 10 mg THREE TIMES A DAY GT 10/24/16 19:00 11/23/16 18:59 11/23/16 08:52 Micafungin Sodium 100 mg/Sodium Chloride 110 ml @ 110 mls/hr Q24H IVPB 11/10/16 20:00 11/23/16 23:59 11/22/16 20:09 Ondansetron HCl (Zofran) 4 mg Q6H PRN IVP Nausea & Vomiting 11/02/16 17:00 12/02/16 16:59 Polyethylene Glycol (Miralax) 17 gm DAILYPRN PRN GT Constipation 10/25/16 01:00 11/24/16 00:59 11/03/16 00:00 Sodium Chloride (NS) 500 ml @ 999 mls/hr PRN PRN IVPB For hypotension 11/09/16 17:15 12/09/16 17:14 11/10/16 22:00 Allergies: Coded Allergies: No Known Allergies (Unverified , 06/17/16) ROS Limited/Unobtainable: No Constitutional: Reports: no symptoms HEENT: Reports: no symptoms Cardiovascular: Reports: no symptoms Respiratory: Reports: shortness of breath Gastrointestinal/Abdominal: Reports: no symptoms Genitourinary: Reports: no symptoms Neurologic/Psychiatric: Reports: no symptoms Subjective 66 YO M admitted with respiratory failure. JORDAN. [facility] Cover for Int Med-Dr Rader. S/P thoracentesis 11/21/16 Objective Last Vital Signs Date Time Temp Pulse Resp B/P Pulse Ox O2 Delivery O2 Flow Rate FiO2 11/23/16 12:00 110 11/23/16 12:00 97.2 18 108/72 96 Mechanical Ventilator 40 11/21/16 04:00 40.0 Laboratory Tests Test 11/23/16 05:20 White Blood Count 15.5 K/UL (4.8-10.8) H Red Blood Count 3.32 M/UL (4.70-6.10) L Hemoglobin 9.3 G/DL (14.2-18.0) L Hematocrit 29.5 % (42.0-52.0) L Mean Corpuscular Volume 89 FL (80-99) Mean Corpuscular Hemoglobin 28.0 PG (27.0-31.0) Mean Corpuscular Hemoglobin Concent 31.6 G/DL (32.0-36.0) L Red Cell Distribution Width 17.6 % (11.6-14.8) H Platelet Count 181 K/UL (150-450) Mean Platelet Volume 7.1 FL (6.5-10.1) Neutrophils (%) (Auto) % (45.0-75.0) Lymphocytes (%) (Auto) % (20.0-45.0) Monocytes (%) (Auto) % (1.0-10.0) Eosinophils (%) (Auto) % (0.0-3.0) Basophils (%) (Auto) % (0.0-2.0) Sodium Level 139 mEQ/L (135-145) Potassium Level 3.9 mEQ/L (3.4-4.9) Chloride Level 96 mEQ/L (98-107) L Carbon Dioxide Level 36 mEQ/L (20-30) H Anion Gap 7 (5-15) Blood Urea Nitrogen 12 mg/dL (7-23) Creatinine 0.5 mg/dL (0.7-1.2) L Estimat Glomerular Filtration Rate > 60 mL/min (>60) Glucose Level 56 mg/dL (74-106) L Calcium Level 7.9 mg/dL (8.6-10.2) L Microbiology Date/Time Source Procedure Growth Status 11/21/16 11:50 Ascities Fluid Gram Stain - Final Resulted 11/21/16 11:50 Ascities Fluid Body Fluid Culture - Preliminary NO GROWTH AFTER 48 HOURS Resulted Intake and Output 11/22/16 11/23/16 19:00 07:00 Intake Total 1810 ml 690 ml Output Total 350 ml 900 ml Balance 1460 ml -210 ml Free Water 300 ml 150 ml IV Total 560 ml 410 ml Tube Feeding 650 ml 130 ml Blood Product 300 ml Output Urine Total 350 ml 900 ml # Bowel Movements 1 1 Objective General Appearance: moderate distress, thin EENT: PERRL/EOMI, normal ENT inspection Neck: non-tender, normal alignment, supple Cardiovascular: normal peripheral pulses, normal rate, regular rhythm, no gallop/murmur, no JVD Respiratory/Chest: Mech vent; trach; respiratory distress, crackles/rales, rhonchi - bilaterally, expiratory wheezing Abdomen: non tender, soft, no organomegaly, no mass, decreased bowel sounds Extremities: normal range of motion Skin: normal pigmentation, warm/dry Assessment/Plan Problem List: (1) Lung nodule (2) DVT (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 (3) Acute respiratory failure Assessment & Plan: S/P tracheostomy 10/03/16. Cont vent per pulm (4) COPD exacerbation Assessment & Plan: Continue duoneb. Continue vent per pulmonary. (5) Pneumonia Assessment & Plan: Pseudamonas. New RLL consolidation. Continue colistin inh , micafungin, linezolid, levaquin and meropenem per ID (6) Leukocytosis Assessment & Plan: Worsening. Await Culture results. Start meropenem, levaquin, micafungin, colistin (inh) and linezolid per ID (7) Dysphagia Assessment & Plan: See GI consult- S/P PEG 10/04/16. (8) Hypoglycemia Assessment & Plan: D50 prn; decrease insulin sliding scale. (9) Dysuria Assessment & Plan: D/C garcia cath. (10) Severe sepsis Assessment & Plan: Blood cultures X2. Cont meropenem, colistin Inh, levaquin, micafungin and linezolid per ID. (11) Hypotension Assessment & Plan: ICU status for pressors, (12) Gastric mass (13) Mass of colon Assessment & Plan: Cecum and colon masses. See GI note. (14) UTI (urinary tract infection) due to Enterococcus Assessment & Plan: Love. On micafungin. See ID note. (15) Empyema Assessment & Plan: Possible per pulmonary. Cont Micafungin, meropenem, colistin (inh) and linezolid per ID (16) Anemia Assessment & Plan: S/P transfusion 1 unit PRBC (17) Pleural effusion on right Assessment & Plan: S/P Thoracentesis 11/21/16. Status: stable Assessment/Plan Await placement @ assisted acute care TADEO Vuong November 23, 2016 13:48
--- NOTE | 2016-11-23 14:43 | Cardiac Electrophysiology PN ---
Assessment/Plan Assessment/Plan 1. Sinus tachycardia due to sepsis. No SVT or fib.Being treated for sepsis. 2. Hypotension .Resolved with treatment of sepsis. On ABx. S/P PRBC 11/18/16. 3. Severe COPD and pulmonary hypertension 4. Ventilator-dependant respiratory failure, status post tracheostomy. 5. Dysphagia, status post percutaneous endoscopic gastrostomy placement. 6. Sepsis due to MDR ACB and PSA , on 3 intravenous antibiotics per ID. 7. Lung abscess 8. Colonic mass and anemia.S/P transfusion. 9. Generalized edema. Not dehydrated or azotemic. Upper extremity doppler No DVT DW RN and family at bedside. Subjective Subjective On Vent via tracheostomy.Remained in SR . Comfortable in NAD, suctioning his mouth himself.. Objective Last 24 Hour Vital Signs Date Time Temp Pulse Resp B/P Pulse Ox O2 Delivery O2 Flow Rate FiO2 11/23/16 13:27 90 16 40 11/23/16 12:45 97.2 11/23/16 12:00 110 11/23/16 12:00 97.2 97 18 108/72 96 Mechanical Ventilator 40 11/23/16 12:00 50 11/23/16 10:40 110 16 99 Mechanical Ventilator 40 11/23/16 10:34 40 11/23/16 10:34 103 16 100 Mechanical Ventilator 40 11/23/16 10:32 103 16 40 11/23/16 09:12 115 16 40 11/23/16 08:00 50 11/23/16 08:00 114 11/23/16 07:39 97.7 114 18 103/54 96 Mechanical Ventilator 40 11/23/16 07:10 137 16 40 11/23/16 05:26 111 16 100 Mechanical Ventilator 40 11/23/16 05:15 108 16 99 Mechanical Ventilator 40 11/23/16 05:15 40 11/23/16 05:14 108 16 40 11/23/16 04:12 99 11/23/16 04:00 50 11/23/16 03:32 96.8 106 16 122/72 98 Mechanical Ventilator 40 11/23/16 03:06 110 20 40 11/23/16 01:07 108 17 40 11/23/16 00:00 50 11/22/16 23:55 106 11/22/16 23:13 97.7 113 20 130/74 100 Mechanical Ventilator 50 11/22/16 22:56 120 23 50 11/22/16 21:30 50 11/22/16 21:17 125 22 99 Mechanical Ventilator 40 11/22/16 21:08 40 11/22/16 21:08 122 23 98 Mechanical Ventilator 40 11/22/16 21:05 125 23 50 11/22/16 20:04 97.7 120 25 118/77 96 Mechanical Ventilator 40 11/22/16 20:00 40 11/22/16 19:30 101 17 40 11/22/16 18:51 99 11/22/16 16:41 92 18 40 11/22/16 16:16 96 11/22/16 16:02 96.6 101 17 101/73 100 Mechanical Ventilator 40 11/22/16 16:00 40 11/22/16 14:58 97 18 40 Intake and Output 11/22/16 11/23/16 19:00 07:00 Intake Total 1810 ml 690 ml Output Total 350 ml 900 ml Balance 1460 ml -210 ml Free Water 300 ml 150 ml IV Total 560 ml 410 ml Tube Feeding 650 ml 130 ml Blood Product 300 ml Output Urine Total 350 ml 900 ml # Bowel Movements 1 1 Laboratory Tests Test 11/23/16 05:20 White Blood Count 15.5 K/UL (4.8-10.8) H Red Blood Count 3.32 M/UL (4.70-6.10) L Hemoglobin 9.3 G/DL (14.2-18.0) L Hematocrit 29.5 % (42.0-52.0) L Mean Corpuscular Volume 89 FL (80-99) Mean Corpuscular Hemoglobin 28.0 PG (27.0-31.0) Mean Corpuscular Hemoglobin Concent 31.6 G/DL (32.0-36.0) L Red Cell Distribution Width 17.6 % (11.6-14.8) H Platelet Count 181 K/UL (150-450) Mean Platelet Volume 7.1 FL (6.5-10.1) Neutrophils (%) (Auto) % (45.0-75.0) Lymphocytes (%) (Auto) % (20.0-45.0) Monocytes (%) (Auto) % (1.0-10.0) Eosinophils (%) (Auto) % (0.0-3.0) Basophils (%) (Auto) % (0.0-2.0) Sodium Level 139 mEQ/L (135-145) Potassium Level 3.9 mEQ/L (3.4-4.9) Chloride Level 96 mEQ/L (98-107) L Carbon Dioxide Level 36 mEQ/L (20-30) H Anion Gap 7 (5-15) Blood Urea Nitrogen 12 mg/dL (7-23) Creatinine 0.5 mg/dL (0.7-1.2) L Estimat Glomerular Filtration Rate > 60 mL/min (>60) Glucose Level 56 mg/dL (74-106) L Calcium Level 7.9 mg/dL (8.6-10.2) L Microbiology Date/Time Source Procedure Growth Status 11/21/16 11:50 Ascities Fluid Gram Stain - Final Resulted 11/21/16 11:50 Ascities Fluid Body Fluid Culture - Preliminary NO GROWTH AFTER 48 HOURS Resulted Objective HEAD AND NECK: No jugular venous distention, tracheostomy intact. LUNGS: Clear bilaterally. CARDIOVASCULAR: Tachycardic S1 and S2 with no gallop or murmur. ABDOMEN: Soft. G-tube intact. EXTREMITIES: Bilateral arm edema.PICC line in place. OSWALD HILLS November 23, 2016 14:43
[2016-11-23 16:00] VITALS: BP 89/51
[2016-11-23 20:00] VITALS: BP 126/79
[2016-11-23] MEDS: Micafungin 100 MG in NS 110 ML IVPB SCH (20:15)
[2016-11-24] VITALS: BP 127/85
[2016-11-24 04:00] VITALS: BP 126/91
[2016-11-24 05:43] LABS: MEAN CORPUSCULAR HEMOGLOBIN 28.3 PG (27.0-31.0); MEAN CORPUSCULAR HGB CONC 31.2 G/DL (32.0-36.0); MEAN CORPUSCULAR VOLUME 91 FL (80-99); MEAN PLATELET VOLUME 7.8 FL (6.5-10.1); PLATELET COUNT 201 K/UL (150-450); RED BLOOD COUNT 3.56 M/UL (4.70-6.10); RED CELL DISTRIBUTION WIDTH 18.1 % (11.6-14.8)
[2016-11-24] MEDS: NovoLOG Insulin Flexpen SUBQ SCH ×3 (06:00→17:37)
[2016-11-24 06:34] LABS: ANION GAP 7 (5-15); CALCIUM 8.2 mg/dL (8.6-10.2); CARBON DIOXIDE 36 mEQ/L (20-30); CHLORIDE 96 mEQ/L (98-107); CREATININE 0.5 mg/dL (0.7-1.2); GLOMERULAR FILTRATION RATE > 60 mL/min (>60); HEMOLYSIS 17; POTASSIUM 4.1 mEQ/L (3.4-4.9); SODIUM 139 mEQ/L (135-145)
[2016-11-24] MEDS: Colistin for inhalation INH SCH ×2 (07:14→23:25)
[2016-11-24 08:10] VITALS: BP 117/87
--- NOTE | 2016-11-24 08:11 | Pulmonology Progress Note ---
Assessment/Plan Assessment/Plan ASSESSMENT leukocytosis VAP Pseudomonas UTI /VRE RUL abscess R pleural effusion s/p thoracentesis -560cc on 11/21 acute hypoxemic hypercapnic respiratory failure requiring intubation failure to wean s/p trach 10/03 dysphagia, G tube placement 10/04 acute COPD exacerbation emphysema possible PNA , s/p Rx Pulmonary nodules colon mass Chronic RLE DVT Tobacco abuse Hx HTN DM acute on chronic encephalopathy anemia elevated LFT -resolved PLAN OF CARE JORDAN vent , trach care Pulmonary toilet abx ID follows sputum cx + Pseudomonas, urine cx + VRE, Love, blood cx - negative, stool C dif negative T chest -extensive PNA, cavitary lesion, suspicious for abscess RUL s/p thoracentesis 11/21 for R pleural effusion-560 cc pleural fluid cx preliminary negative pathology of pleural fluid negative for malignant cells last CXR 11/22 still with extensive infiltrates CT A/P with evidence of large cecal mass patient declined any GI workup as per GI notes s/p steroids, BS management with sensitive SS of insulin strict aspiration precautions, monitor GT feeding tolerance pain management bowel regimen monitor HH, anemia workup with low iron, stool OB positive, s/p Venofer GI follows GI recommended to repeat stool OB in 2-3- weeks PPI LFT stable currently, hepatitis panel negative abdominal US no dilated ducts awaiting for placement to subacute, transfer when placement arranged case discussed and evaluated by supervising physician Subjective Allergies: Coded Allergies: No Known Allergies (Unverified , 06/17/16) Subjective awake, denies congestion, chest pain, SOB still with leukocytosis , afebrile no signs of respiratory distress Objective Last 24 Hour Vital Signs Date Time Temp Pulse Resp B/P Pulse Ox O2 Delivery O2 Flow Rate FiO2 11/24/16 07:14 113 18 40 11/24/16 05:39 109 16 40 11/24/16 04:00 102 11/24/16 04:00 50 11/24/16 04:00 97.5 107 16 126/91 98 Mechanical Ventilator 40 11/24/16 03:23 105 16 40 11/24/16 01:16 102 17 40 11/24/16 00:00 96.6 109 18 127/85 97 Mechanical Ventilator 40 11/24/16 00:00 113 11/24/16 00:00 50 11/23/16 23:13 118 16 40 11/23/16 21:48 116 16 99 Mechanical Ventilator 40 11/23/16 21:40 40 11/23/16 21:40 115 17 100 Mechanical Ventilator 40 11/23/16 20:58 102 20 40 11/23/16 20:00 108 11/23/16 20:00 50 11/23/16 20:00 97.1 105 18 126/79 96 Mechanical Ventilator 40 11/23/16 19:47 107 20 40 11/23/16 17:21 95 16 40 11/23/16 16:25 114 11/23/16 16:00 97.5 97 18 89/51 99 Mechanical Ventilator 40 11/23/16 16:00 50 11/23/16 15:07 129 16 40 11/23/16 14:37 118 16 100 Mechanical Ventilator 40 11/23/16 14:28 40 11/23/16 14:28 126 16 99 Mechanical Ventilator 40 11/23/16 13:27 90 16 40 11/23/16 12:45 97.2 11/23/16 12:00 110 11/23/16 12:00 97.2 97 18 108/72 96 Mechanical Ventilator 40 11/23/16 12:00 50 11/23/16 10:40 110 16 99 Mechanical Ventilator 40 11/23/16 10:34 40 11/23/16 10:34 103 16 100 Mechanical Ventilator 40 11/23/16 10:32 103 16 40 11/23/16 09:12 115 16 40 Intake and Output 11/23/16 11/24/16 19:00 07:00 Intake Total 800 ml 605 ml Output Total 450 ml 550 ml Balance 350 ml 55 ml Free Water 300 ml IV Total 150 ml 110 ml Tube Feeding 650 ml 195 ml Output Urine Total 450 ml 550 ml # Bowel Movements 1 1 Objective General Appearance: no apparent distress, vent AC 600-16-40% HEENT: normocephalic, atraumatic, anicteric Neck: trach, Shiley #8, secretions small , yellow, thin Respiratory/Chest: decreased breath sounds Cardiovascular/Chest: regular rate and rhythm, no JVD, occasionally ST Abdomen: normal bowel sounds, non tender, soft Extremities: normal capillary refill Neurologic: abnormal gait, awake, alert, responsive Musculoskeletal: normal muscle bulk Microbiology Date/Time Source Procedure Growth Status 11/21/16 11:50 Ascities Fluid Gram Stain - Final Resulted 11/21/16 11:50 Ascities Fluid Body Fluid Culture - Preliminary NO GROWTH AFTER 48 HOURS Resulted Laboratory Tests 11/24/16 04:00: White Blood Count 16.0H, Red Blood Count 3.56L, Hemoglobin 10.1L, Hematocrit 32.2L, Mean Corpuscular Volume 91, Mean Corpuscular Hemoglobin 28.3, Mean Corpuscular Hemoglobin Concent 31.2L, Red Cell Distribution Width 18.1H, Platelet Count 201, Mean Platelet Volume 7.8, Neutrophils (%) (Auto) , Lymphocytes (%) (Auto) , Monocytes (%) (Auto) , Eosinophils (%) (Auto) , Basophils (%) (Auto) , Neutrophils % (Manual) [Pending], Lymphocytes % (Manual) [Pending], Platelet Estimate [Pending], Platelet Morphology [Pending], Sodium Level 139, Potassium Level 4.1, Chloride Level 96L, Carbon Dioxide Level 36H, Anion Gap 7, Blood Urea Nitrogen 12, Creatinine 0.5L, Estimat Glomerular Filtration Rate > 60, Glucose Level 70L, Calcium Level 8.2L Current Medications Medications (Trade) Dose Ordered Sig/Shraddha Route PRN Reason Start Time Stop Time Status Last Admin Dose Admin Acetaminophen (Tylenol) 650 mg Q4H PRN ORAL fever>100.5 11/02/16 17:00 12/02/16 16:59 11/22/16 06:12 Acetaminophen 650 mg 650 mg Q4H PRN GT headache 11/03/16 08:00 12/03/16 07:59 11/23/16 12:15 Chlorhexidine Gluconate (Mariluz-Hex 2%) 1 applic DAILY TOPIC 11/23/16 09:00 12/23/16 08:59 11/23/16 08:53 Colistimethate Sodium 150 mg 150 mg Q12HR@10,22 INH 11/09/16 22:00 11/29/16 21:59 11/24/16 07:14 Dextrose (Dextrose 50%) STAT PRN IV Hypoglycemia 11/02/16 17:00 12/02/16 16:59 Insulin Aspart (NovoLOG) start when feeding started Q6HR SUBQ 11/02/16 18:00 12/02/16 17:59 11/23/16 23:19 Lansoprazole (Prevacid) 30 mg DAILY GT 10/31/16 09:00 11/30/16 08:59 11/23/16 08:52 Levalbuterol HCl (Xopenex) 1.25 mg Q4H PRN HHN Shortness of Breath 11/23/16 01:45 11/28/16 01:44 11/23/16 14:28 Levofloxacin (Levaquin 750mg/ D5W) 150 ml @ 100 mls/hr Q24H IVPB 11/11/16 14:30 12/22/16 14:29 11/23/16 14:16 Ondansetron HCl (Zofran) 4 mg Q6H PRN IVP Nausea & Vomiting 11/02/16 17:00 12/02/16 16:59 Sodium Chloride (NS) 500 ml @ 999 mls/hr PRN PRN IVPB For hypotension 11/09/16 17:15 12/09/16 17:14 11/10/16 22:00 Hua SorensonKatia sampson NP November 24, 2016 08:11
[2016-11-24] MEDS: Metoclopramide 10mg/10ml Liq GT SCH ×3 (08:43→17:36)
[2016-11-24] MEDS: Dyna-Hex 2% Top Sol 8oz TOPIC SCH (08:44)
[2016-11-24 09:06] LABS: ANISOCYTOSIS 1+; BAND NEUTROPHILS % (MANUAL) 0 % (0-8); BASOPHILS % (MANUAL) 0 % (0-2); EOSINOPHILS % (MANUAL) 0 % (0-3); HYPOCHROMASIA 1+; LYMPHOCYTES % (MANUAL) 6 % (20-45); NEUTROPHILS % (MANUAL) 90 % (45-75); PLATELET ESTIMATE ADEQUATE; PLATELET MORPHOLOGY NORMAL; TOTAL CELLS COUNTED 100
--- NOTE | 2016-11-24 09:26 | Infectious Diseases Prog Note ---
Assessment/Plan Assessment/Plan A: Pneumonia worsening Leukocytosis UTI COPD VDRF Pulmonary HPN Cecal/ colon mass P: Continue Colistin INH , Subjective ROS Limited/Unobtainable: Yes Allergies: Coded Allergies: No Known Allergies (Unverified , 06/17/16) Objective Vital Signs Last 24 Hour Vital Signs Date Time Temp Pulse Resp B/P Pulse Ox O2 Delivery O2 Flow Rate FiO2 11/24/16 08:55 117 11/24/16 08:13 50 11/24/16 08:10 97.2 115 18 117/87 95 Mechanical Ventilator 40 11/24/16 07:14 113 18 40 11/24/16 05:39 109 16 40 11/24/16 04:00 102 11/24/16 04:00 50 11/24/16 04:00 97.5 107 16 126/91 98 Mechanical Ventilator 40 11/24/16 03:23 105 16 40 11/24/16 01:16 102 17 40 11/24/16 00:00 96.6 109 18 127/85 97 Mechanical Ventilator 40 11/24/16 00:00 113 11/24/16 00:00 50 11/23/16 23:13 118 16 40 11/23/16 21:48 116 16 99 Mechanical Ventilator 40 11/23/16 21:40 40 11/23/16 21:40 115 17 100 Mechanical Ventilator 40 11/23/16 20:58 102 20 40 11/23/16 20:00 108 11/23/16 20:00 50 11/23/16 20:00 97.1 105 18 126/79 96 Mechanical Ventilator 40 11/23/16 19:47 107 20 40 11/23/16 17:21 95 16 40 11/23/16 16:25 114 11/23/16 16:00 97.5 97 18 89/51 99 Mechanical Ventilator 40 11/23/16 16:00 50 11/23/16 15:07 129 16 40 11/23/16 14:37 118 16 100 Mechanical Ventilator 40 11/23/16 14:28 40 11/23/16 14:28 126 16 99 Mechanical Ventilator 40 11/23/16 13:27 90 16 40 11/23/16 12:45 97.2 11/23/16 12:00 110 11/23/16 12:00 97.2 97 18 108/72 96 Mechanical Ventilator 40 11/23/16 12:00 50 11/23/16 10:40 110 16 99 Mechanical Ventilator 40 11/23/16 10:34 40 11/23/16 10:34 103 16 100 Mechanical Ventilator 40 11/23/16 10:32 103 16 40 Height (Feet): 6 Height (Inches): 2.00 Weight (Pounds): 126 HEENT: status post trach Respiratory/Chest: lungs clear, other - on ventilastor Cardiovascular: tachycardia Abdomen: soft, non tender, other - GT feeding Extremities: other - left arm PICC line , edema Neurologic/Psychiatric: unresponsiveness Microbiology Date/Time Source Procedure Growth Status 11/21/16 11:50 Ascities Fluid Gram Stain - Final Resulted 11/21/16 11:50 Ascities Fluid Body Fluid Culture - Preliminary NO GROWTH AFTER 72 HOURS Resulted Laboratory Tests Test 11/24/16 04:00 White Blood Count 16.0 K/UL (4.8-10.8) H Red Blood Count 3.56 M/UL (4.70-6.10) L Hemoglobin 10.1 G/DL (14.2-18.0) L Hematocrit 32.2 % (42.0-52.0) L Mean Corpuscular Volume 91 FL (80-99) Mean Corpuscular Hemoglobin 28.3 PG (27.0-31.0) Mean Corpuscular Hemoglobin Concent 31.2 G/DL (32.0-36.0) L Red Cell Distribution Width 18.1 % (11.6-14.8) H Platelet Count 201 K/UL (150-450) Mean Platelet Volume 7.8 FL (6.5-10.1) Neutrophils (%) (Auto) % (45.0-75.0) Lymphocytes (%) (Auto) % (20.0-45.0) Monocytes (%) (Auto) % (1.0-10.0) Eosinophils (%) (Auto) % (0.0-3.0) Basophils (%) (Auto) % (0.0-2.0) Differential Total Cells Counted 100 Neutrophils % (Manual) 90 % (45-75) H Lymphocytes % (Manual) 6 % (20-45) L Monocytes % (Manual) 4 % (1-10) Eosinophils % (Manual) 0 % (0-3) Basophils % (Manual) 0 % (0-2) Band Neutrophils 0 % (0-8) Platelet Estimate Adequate Platelet Morphology Normal Hypochromasia 1+ Anisocytosis 1+ Sodium Level 139 mEQ/L (135-145) Potassium Level 4.1 mEQ/L (3.4-4.9) Chloride Level 96 mEQ/L (98-107) L Carbon Dioxide Level 36 mEQ/L (20-30) H Anion Gap 7 (5-15) Blood Urea Nitrogen 12 mg/dL (7-23) Creatinine 0.5 mg/dL (0.7-1.2) L Estimat Glomerular Filtration Rate > 60 mL/min (>60) Glucose Level 70 mg/dL (74-106) L Calcium Level 8.2 mg/dL (8.6-10.2) L Current Medications Medications (Trade) Dose Ordered Sig/Shraddha Route PRN Reason Start Time Stop Time Status Last Admin Dose Admin Acetaminophen (Tylenol) 650 mg Q4H PRN ORAL fever>100.5 11/02/16 17:00 12/02/16 16:59 11/22/16 06:12 Acetaminophen 650 mg 650 mg Q4H PRN GT headache 11/03/16 08:00 12/03/16 07:59 11/23/16 12:15 Albuterol/ Ipratropium (DuoNeb 0.5-3(2.5)mg/3ml) 3 ml Q4H PRN HHN Shortness of Breath 11/24/16 08:15 11/29/16 08:14 Chlorhexidine Gluconate (Mariluz-Hex 2%) 1 applic DAILY TOPIC 11/23/16 09:00 12/23/16 08:59 11/24/16 08:44 Colistimethate Sodium 150 mg 150 mg Q12HR@10,22 INH 11/09/16 22:00 11/29/16 21:59 11/24/16 07:14 Dextrose (Dextrose 50%) STAT PRN IV Hypoglycemia 11/02/16 17:00 12/02/16 16:59 Insulin Aspart (NovoLOG) start when feeding started Q6HR SUBQ 11/02/16 18:00 12/02/16 17:59 11/23/16 23:19 Lansoprazole (Prevacid) 30 mg DAILY GT 10/31/16 09:00 11/30/16 08:59 11/24/16 08:43 Levalbuterol HCl (Xopenex) 1.25 mg Q4H PRN HHN Shortness of Breath 11/23/16 01:45 11/28/16 01:44 11/23/16 14:28 Levofloxacin (Levaquin 750mg/ D5W) 150 ml @ 100 mls/hr Q24H IVPB 11/11/16 14:30 12/22/16 14:29 11/23/16 14:16 Metoclopramide HCl (Reglan) 10 mg TID GT 11/24/16 09:00 12/24/16 08:59 11/24/16 08:43 Ondansetron HCl (Zofran) 4 mg Q6H PRN IVP Nausea & Vomiting 11/02/16 17:00 12/02/16 16:59 Polyethylene Glycol (Miralax) 17 gm BEDTIME ORAL 11/24/16 21:00 12/24/16 20:59 Sodium Chloride (NS) 500 ml @ 999 mls/hr PRN PRN IVPB For hypotension 11/09/16 17:15 12/09/16 17:14 11/10/16 22:00 LINNETTE DIAZ November 24, 2016 09:26
[2016-11-24] MEDS: Levalbuterol Inh UD 1.25mg/0.5ml HHN PRN ×2 (09:40→13:34)
[2016-11-24] MEDS: Acetaminophen 650mg/20.3ml GT PRN (10:28)
[2016-11-24 12:06] VITALS: BP 97/61
--- NOTE | 2016-11-24 15:59 | Internal Med Progress Note ---
Subjective Date of Service: November 24, 2016 Physician Name VerdinTadeo Attending Physician Steve Rader MD Current Medications Medications (Trade) Dose Ordered Sig/Shraddha Route PRN Reason Start Time Stop Time Status Last Admin Dose Admin Acetaminophen (Tylenol) 650 mg Q4H PRN ORAL fever>100.5 11/02/16 17:00 12/02/16 16:59 11/22/16 06:12 Acetaminophen 650 mg 650 mg Q4H PRN GT headache 11/03/16 08:00 12/03/16 07:59 11/24/16 10:28 Albuterol/ Ipratropium (DuoNeb 0.5-3(2.5)mg/3ml) 3 ml Q4H PRN HHN Shortness of Breath 11/24/16 08:15 11/29/16 08:14 Chlorhexidine Gluconate (Mariluz-Hex 2%) 1 applic DAILY TOPIC 11/23/16 09:00 12/23/16 08:59 11/24/16 08:44 Colistimethate Sodium 150 mg 150 mg Q12HR@10,22 INH 11/09/16 22:00 11/29/16 21:59 11/24/16 07:14 Dextrose (Dextrose 50%) STAT PRN IV Hypoglycemia 11/02/16 17:00 12/02/16 16:59 Insulin Aspart (NovoLOG) start when feeding started Q6HR SUBQ 11/02/16 18:00 12/02/16 17:59 11/23/16 23:19 Lansoprazole (Prevacid) 30 mg DAILY GT 10/31/16 09:00 11/30/16 08:59 11/24/16 08:43 Levalbuterol HCl (Xopenex) 1.25 mg Q4H PRN HHN Shortness of Breath 11/23/16 01:45 11/28/16 01:44 11/24/16 13:34 Levofloxacin (Levaquin 750mg/ D5W) 150 ml @ 100 mls/hr Q24H IVPB 11/11/16 14:30 12/22/16 14:29 11/24/16 14:29 Metoclopramide HCl (Reglan) 10 mg TID GT 11/24/16 09:00 12/24/16 08:59 11/24/16 12:36 Ondansetron HCl (Zofran) 4 mg Q6H PRN IVP Nausea & Vomiting 11/02/16 17:00 12/02/16 16:59 Polyethylene Glycol (Miralax) 17 gm BEDTIME ORAL 11/24/16 21:00 12/24/16 20:59 Sodium Chloride (NS) 500 ml @ 999 mls/hr PRN PRN IVPB For hypotension 11/09/16 17:15 12/09/16 17:14 11/10/16 22:00 Allergies: Coded Allergies: No Known Allergies (Unverified , 06/17/16) ROS Limited/Unobtainable: No Constitutional: Reports: no symptoms HEENT: Reports: no symptoms Cardiovascular: Reports: no symptoms Respiratory: Reports: no symptoms Gastrointestinal/Abdominal: Reports: no symptoms Genitourinary: Reports: no symptoms Neurologic/Psychiatric: Reports: no symptoms Subjective 66 YO M admitted with respiratory failure. JORDAN. Trach with mech vent. Cover for Int Med-Dr Rader. S/P thoracentesis 11/21/16 Objective Last Vital Signs Date Time Temp Pulse Resp B/P Pulse Ox O2 Delivery O2 Flow Rate FiO2 11/24/16 14:56 101 19 40 11/24/16 13:36 99 Mechanical Ventilator 40.0 11/24/16 12:06 97.9 97/61 Laboratory Tests Test 11/24/16 04:00 White Blood Count 16.0 K/UL (4.8-10.8) H Red Blood Count 3.56 M/UL (4.70-6.10) L Hemoglobin 10.1 G/DL (14.2-18.0) L Hematocrit 32.2 % (42.0-52.0) L Mean Corpuscular Volume 91 FL (80-99) Mean Corpuscular Hemoglobin 28.3 PG (27.0-31.0) Mean Corpuscular Hemoglobin Concent 31.2 G/DL (32.0-36.0) L Red Cell Distribution Width 18.1 % (11.6-14.8) H Platelet Count 201 K/UL (150-450) Mean Platelet Volume 7.8 FL (6.5-10.1) Neutrophils (%) (Auto) % (45.0-75.0) Lymphocytes (%) (Auto) % (20.0-45.0) Monocytes (%) (Auto) % (1.0-10.0) Eosinophils (%) (Auto) % (0.0-3.0) Basophils (%) (Auto) % (0.0-2.0) Differential Total Cells Counted 100 Neutrophils % (Manual) 90 % (45-75) H Lymphocytes % (Manual) 6 % (20-45) L Monocytes % (Manual) 4 % (1-10) Eosinophils % (Manual) 0 % (0-3) Basophils % (Manual) 0 % (0-2) Band Neutrophils 0 % (0-8) Platelet Estimate Adequate Platelet Morphology Normal Hypochromasia 1+ Anisocytosis 1+ Sodium Level 139 mEQ/L (135-145) Potassium Level 4.1 mEQ/L (3.4-4.9) Chloride Level 96 mEQ/L (98-107) L Carbon Dioxide Level 36 mEQ/L (20-30) H Anion Gap 7 (5-15) Blood Urea Nitrogen 12 mg/dL (7-23) Creatinine 0.5 mg/dL (0.7-1.2) L Estimat Glomerular Filtration Rate > 60 mL/min (>60) Glucose Level 70 mg/dL (74-106) L Calcium Level 8.2 mg/dL (8.6-10.2) L Intake and Output 11/23/16 11/24/16 19:00 07:00 Intake Total 800 ml 605 ml Output Total 450 ml 550 ml Balance 350 ml 55 ml Free Water 300 ml IV Total 150 ml 110 ml Tube Feeding 650 ml 195 ml Output Urine Total 450 ml 550 ml # Bowel Movements 1 1 Objective General Appearance: moderate distress, thin EENT: PERRL/EOMI, normal ENT inspection Neck: non-tender, normal alignment, supple Cardiovascular: normal peripheral pulses, normal rate, regular rhythm, no gallop/murmur, no JVD Respiratory/Chest: Mech vent; trach; respiratory distress, crackles/rales, rhonchi - bilaterally, expiratory wheezing Abdomen: non tender, soft, no organomegaly, no mass, decreased bowel sounds Extremities: normal range of motion Skin: normal pigmentation, warm/dry Assessment/Plan Problem List: (1) Lung nodule (2) DVT (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 (3) Acute respiratory failure Assessment & Plan: S/P tracheostomy 10/03/16. Cont vent per pulm (4) COPD exacerbation Assessment & Plan: Continue duoneb. Continue vent per pulmonary. (5) Pneumonia Assessment & Plan: Pseudamonas. New RLL consolidation. Continue colistin inh , micafungin, linezolid, levaquin and meropenem per ID (6) Leukocytosis Assessment & Plan: Worsening. Await Culture results. Start meropenem, levaquin, micafungin, colistin (inh) and linezolid per ID (7) Dysphagia Assessment & Plan: See GI consult- S/P PEG 10/04/16. (8) Hypoglycemia Assessment & Plan: D50 prn; decrease insulin sliding scale. (9) Dysuria Assessment & Plan: D/C garcia cath. (10) Severe sepsis Assessment & Plan: Blood cultures X2. Cont meropenem, colistin Inh, levaquin, micafungin and linezolid per ID. (11) Hypotension Assessment & Plan: ICU status for pressors, (12) Gastric mass (13) Mass of colon Assessment & Plan: Cecum and colon masses. See GI note. (14) UTI (urinary tract infection) due to Enterococcus Assessment & Plan: Love. On micafungin. See ID note. (15) Empyema Assessment & Plan: Possible per pulmonary. Cont Micafungin, meropenem, colistin (inh) and linezolid per ID (16) Anemia Assessment & Plan: S/P transfusion 1 unit PRBC (17) Pleural effusion on right Assessment & Plan: S/P Thoracentesis 11/21/16. Assessment/Plan Await placement @ [facility] TADEO VERDIN November 24, 2016 15:58
[2016-11-24 16:00] VITALS: BP 93/68
[2016-11-24] MEDS ORDERED: NS 275ml ONE (17:29)
[2016-11-24 20:00] VITALS: BP 108/69
[2016-11-24] MEDS: Miralax 17gm pkt ORAL SCH (20:46)
[2016-11-25] VITALS (7 sets, daily range): BP systolic 99–127; BP diastolic 66–81
[2016-11-25] MEDS: NovoLOG Insulin Flexpen SUBQ SCH ×5 (00:12→23:50)
[2016-11-25 06:06] LABS: BASOPHILS % (AUTO) 0.9 % (0.0-2.0); EOSINOPHILS % (AUTO) 0.5 % (0.0-3.0); LYMPHOCYTES % (AUTO) 5.5 % (20.0-45.0); MEAN CORPUSCULAR HEMOGLOBIN 27.6 PG (27.0-31.0); MEAN CORPUSCULAR HGB CONC 31.1 G/DL (32.0-36.0); MEAN CORPUSCULAR VOLUME 89 FL (80-99); MEAN PLATELET VOLUME 7.9 FL (6.5-10.1); MONOCYTES % (AUTO) 9.3 % (1.0-10.0); NEUTROPHILS % (AUTO) 83.8 % (45.0-75.0); PLATELET COUNT 164 K/UL (150-450); RED CELL DISTRIBUTION WIDTH 17.6 % (11.6-14.8); WHITE BLOOD COUNT 11.9 K/UL (4.8-10.8)
[2016-11-25 06:19] LABS: ANION GAP 6 (5-15); CARBON DIOXIDE 37 mEQ/L (20-30); CHLORIDE 96 mEQ/L (98-107); CREATININE 0.5 mg/dL (0.7-1.2); GLOMERULAR FILTRATION RATE > 60 mL/min (>60); HEMOLYSIS 2; SODIUM 139 mEQ/L (135-145)
[2016-11-25] MEDS: Dyna-Hex 2% Top Sol 8oz TOPIC SCH (08:06)
[2016-11-25] MEDS: Metoclopramide 10mg/10ml Liq GT SCH ×3 (08:06→17:55)
[2016-11-25] MEDS: Colistin for inhalation INH SCH ×2 (09:19→20:49)
--- NOTE | 2016-11-25 09:53 | Diagnostic Imaging Report ---
Indication: SOB Technique: One view of the chest Comparison: 11/22/2016 Findings: Again demonstrated is extensive consolidation of entire right lung. Interstitial opacities of the left lung base are stable. The left lung remains hyperinflated. Tracheostomy, left arm PICC remain. Impression: Unchanged, over 3 days, findings as above.
--- NOTE | 2016-11-25 11:09 | Pulmonology Progress Note ---
Assessment/Plan Problems: (1) Severe sepsis (2) Abdominal distention (3) Respiratory failure (4) COPD exacerbation (5) Emphysema of lung (6) Colonic mass Assessment/Plan Respiratory: monitor respiratory rate, adjust FIO2 Cardiac: continue pressors, continue to monitor HR/BP Renal: F/U I&O, keep IV fluid Infectious Disease: check cultures Gastrointestinal: continue feedings/current rate, hold feedings Endocrine: monitor blood sugar, check TSH, check HgA1C, continue sliding scale insulin Hematologic: monitor H/H, transfuse if hgb<8.5 Neurologic: PRN Ativan, PRN Morphine, keep patient comfortable Affect: PRN ativan Prophylaxis: Heparin Time Spent (Minutes): 40 Notes Reviewed: cardio, renal 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, consultants, correctional casework specialist Subjective ROS Limited/Unobtainable: Yes Allergies: Coded Allergies: No Known Allergies (Unverified , 06/17/16) Objective Last 24 Hour Vital Signs Date Time Temp Pulse Resp B/P Pulse Ox O2 Delivery O2 Flow Rate FiO2 11/25/16 09:17 88 16 40 11/25/16 09:16 88 16 100 Mechanical Ventilator 40 11/25/16 09:00 40 11/25/16 09:00 89 16 99 Mechanical Ventilator 40 11/25/16 08:00 104 11/25/16 07:39 50 11/25/16 07:31 97.5 84 16 102/66 99 Mechanical Ventilator 40 11/25/16 06:45 119 16 40 11/25/16 05:46 101 17 40 11/25/16 04:00 110 11/25/16 04:00 98.8 110 18 118/67 98 Mechanical Ventilator 40 11/25/16 04:00 50 11/25/16 03:41 102 22 40 11/25/16 01:23 95 16 40 11/25/16 00:00 50 11/25/16 00:00 112 11/25/16 00:00 98.7 111 18 116/75 96 Mechanical Ventilator 40 11/24/16 23:40 102 16 100 Mechanical Ventilator 40.0 40 11/24/16 23:23 100 16 40 11/24/16 23:23 40 11/24/16 23:22 100 16 100 Mechanical Ventilator 40 11/24/16 20:51 97 21 40 11/24/16 20:00 50 11/24/16 20:00 121 11/24/16 20:00 97.7 94 18 108/69 100 Mechanical Ventilator 40 11/24/16 19:45 92 22 40 11/24/16 18:34 107 11/24/16 17:22 113 20 40 11/24/16 16:00 50 11/24/16 16:00 98.1 106 18 93/68 98 Mechanical Ventilator 40 11/24/16 14:56 101 19 40 11/24/16 13:36 95 16 99 Mechanical Ventilator 40.0 40 11/24/16 13:36 40 11/24/16 13:35 92 16 99 Mechanical Ventilator 40.0 40 11/24/16 13:34 92 16 40 11/24/16 13:16 111 11/24/16 12:06 97.9 107 18 97/61 99 Mechanical Ventilator 40 11/24/16 12:00 50 Intake and Output 11/24/16 11/25/16 19:00 07:00 Intake Total 1220 ml 495 ml Output Total 400 ml 400 ml Balance 820 ml 95 ml Free Water 450 ml 300 ml IV Total 150 ml Tube Feeding 620 ml 195 ml Output Urine Total 400 ml 400 ml # Voids 1 # Bowel Movements 3 Objective Status: awake HEENT: atraumatic, normocephalic Lungs: clear, decreased breath sounds Heart: HR/BP stable Abdomen: soft, non-tender Extremities: no C/C/E, edema Laboratory Tests 11/25/16 03:40: Sodium Level 139, Potassium Level 4.0, Chloride Level 96L, Carbon Dioxide Level 37H, Anion Gap 6, Blood Urea Nitrogen 11, Creatinine 0.5L, Estimat Glomerular Filtration Rate > 60, Glucose Level 64L, Calcium Level 8.0L 11/25/16 05:00: White Blood Count 11.9H, Red Blood Count 3.30L, Hemoglobin 9.1L, Hematocrit 29.3L, Mean Corpuscular Volume 89, Mean Corpuscular Hemoglobin 27.6, Mean Corpuscular Hemoglobin Concent 31.1L, Red Cell Distribution Width 17.6H, Platelet Count 164, Mean Platelet Volume 7.9, Neutrophils (%) (Auto) 83.8H, Lymphocytes (%) (Auto) 5.5L, Monocytes (%) (Auto) 9.3, Eosinophils (%) (Auto) 0.5, Basophils (%) (Auto) 0.9 Current Medications Medications (Trade) Dose Ordered Sig/Shraddha Route PRN Reason Start Time Stop Time Status Last Admin Dose Admin Acetaminophen (Tylenol) 650 mg Q4H PRN ORAL fever>100.5 11/02/16 17:00 12/02/16 16:59 11/22/16 06:12 Acetaminophen 650 mg 650 mg Q4H PRN GT headache 11/03/16 08:00 12/03/16 07:59 11/24/16 10:28 Albuterol/ Ipratropium (DuoNeb 0.5-3(2.5)mg/3ml) 3 ml Q4H PRN HHN Shortness of Breath 11/24/16 08:15 11/29/16 08:14 Chlorhexidine Gluconate (Mariluz-Hex 2%) 1 applic DAILY TOPIC 11/23/16 09:00 12/23/16 08:59 11/25/16 08:06 Colistimethate Sodium 150 mg 150 mg Q12HR@10,22 INH 11/09/16 22:00 11/29/16 21:59 11/25/16 09:19 Dextrose (Dextrose 50%) STAT PRN IV Hypoglycemia 11/02/16 17:00 12/02/16 16:59 Insulin Aspart (NovoLOG) start when feeding started Q6HR SUBQ 11/02/16 18:00 12/02/16 17:59 11/25/16 00:12 Lansoprazole (Prevacid) 30 mg DAILY GT 10/31/16 09:00 11/30/16 08:59 11/25/16 08:06 Levalbuterol HCl (Xopenex) 1.25 mg Q4H PRN HHN Shortness of Breath 11/23/16 01:45 11/28/16 01:44 11/24/16 13:34 Levofloxacin (Levaquin 750mg/ D5W) 150 ml @ 100 mls/hr Q24H IVPB 11/11/16 14:30 12/22/16 14:29 11/24/16 14:29 Metoclopramide HCl (Reglan) 10 mg TID GT 11/24/16 09:00 12/24/16 08:59 11/25/16 08:06 Ondansetron HCl (Zofran) 4 mg Q6H PRN IVP Nausea & Vomiting 11/02/16 17:00 12/02/16 16:59 Polyethylene Glycol (Miralax) 17 gm BEDTIME ORAL 11/24/16 21:00 12/24/16 20:59 Sodium Chloride (NS) 500 ml @ 999 mls/hr PRN PRN IVPB For hypotension 11/09/16 17:15 12/09/16 17:14 11/10/16 22:00 REN WRIGHT November 25, 2016 11:09
--- NOTE | 2016-11-25 11:20 | Infectious Diseases Prog Note ---
Assessment/Plan Assessment/Plan Plan ASSESSMENT: 66 y/o male with: // VAP / RUL Pna , as per pul no evidence of abscess - SCx: MDR ACB and PSA , repeat Scx: PSA - SP thoracentesis - no evide of empyema 11/21 - CT 11/14 :Extensive pneumonia involving both lungs as described above. 5-6 cm cavitary focus suspicious for lung abscess in the right upper lobe. // Probable UTI : UCx yeast and VRE // Leukocytosis - improving ( DVT, probable CA contributing, SP steroids ) // Hypotension SP // Febrile low grade SP // HIV and Hep B/C : neg // thoracentesis 11/21 // Colon mass ro cancer , GI is following CT: Large cecal mass and other polypoid colonic masses, detailed previously , again demonstrated // SP PEG 10/04 // Chronic VDRF SP trach // Severe pulmonary HTN / grade I diastolic dysfunction / mod TR // Pulmonary nodules // Chronic RLE DVT // Tobacco abuse // [facility] resident // Negative MRSA, VRE screens // NKDA // Full Code PLAN: - cont Levaquin d# 14 / , Colistin INH d# 17 / ( SP Merrem, Zyvox and Mycamine d# 14 ) ( 11/09 SP Vanco d# 6 / 10 and oral Vanco d# 5 ) ( 10/17 SP Ceftazidime d# 14 ) ( 10/13 SP Jairon nebs d# 14 ) ( 10/11 SP Flagyl d# 10 ) ( 10/04 SP oral Vanco d# 3 ) ( 09/24 SP amikacin, invanz d# 5 / 5 ) ( 09/21 SP IV vancomycin d# 2 ) - monitor CBC, temperatures - monitor BMP - monitor CXR - vent support, trach care, aspiration precautions Subjective Allergies: Coded Allergies: No Known Allergies (Unverified , 06/17/16) Subjective on vent Objective Vital Signs Last 24 Hour Vital Signs Date Time Temp Pulse Resp B/P Pulse Ox O2 Delivery O2 Flow Rate FiO2 11/25/16 09:17 88 16 40 11/25/16 09:16 88 16 100 Mechanical Ventilator 40 11/25/16 09:00 40 11/25/16 09:00 89 16 99 Mechanical Ventilator 40 11/25/16 08:00 104 11/25/16 07:39 50 11/25/16 07:31 97.5 84 16 102/66 99 Mechanical Ventilator 40 11/25/16 06:45 119 16 40 11/25/16 05:46 101 17 40 11/25/16 04:00 110 11/25/16 04:00 98.8 110 18 118/67 98 Mechanical Ventilator 40 11/25/16 04:00 50 11/25/16 03:41 102 22 40 11/25/16 01:23 95 16 40 11/25/16 00:00 50 11/25/16 00:00 112 11/25/16 00:00 98.7 111 18 116/75 96 Mechanical Ventilator 40 11/24/16 23:40 102 16 100 Mechanical Ventilator 40.0 40 11/24/16 23:23 100 16 40 11/24/16 23:23 40 11/24/16 23:22 100 16 100 Mechanical Ventilator 40 11/24/16 20:51 97 21 40 11/24/16 20:00 50 11/24/16 20:00 121 11/24/16 20:00 97.7 94 18 108/69 100 Mechanical Ventilator 40 11/24/16 19:45 92 22 40 11/24/16 18:34 107 11/24/16 17:22 113 20 40 11/24/16 16:00 50 11/24/16 16:00 98.1 106 18 93/68 98 Mechanical Ventilator 40 11/24/16 14:56 101 19 40 11/24/16 13:36 95 16 99 Mechanical Ventilator 40.0 40 11/24/16 13:36 40 11/24/16 13:35 92 16 99 Mechanical Ventilator 40.0 40 11/24/16 13:34 92 16 40 11/24/16 13:16 111 11/24/16 12:06 97.9 107 18 97/61 99 Mechanical Ventilator 40 11/24/16 12:00 50 Height (Feet): 6 Height (Inches): 2.00 Weight (Pounds): 126 HEENT: anicteric Respiratory/Chest: no respiratory distress Cardiovascular: regular rhythm Abdomen: no mass Laboratory Tests Test 11/25/16 03:40 11/25/16 05:00 Sodium Level 139 mEQ/L (135-145) Potassium Level 4.0 mEQ/L (3.4-4.9) Chloride Level 96 mEQ/L (98-107) L Carbon Dioxide Level 37 mEQ/L (20-30) H Anion Gap 6 (5-15) Blood Urea Nitrogen 11 mg/dL (7-23) Creatinine 0.5 mg/dL (0.7-1.2) L Estimat Glomerular Filtration Rate > 60 mL/min (>60) Glucose Level 64 mg/dL (74-106) L Calcium Level 8.0 mg/dL (8.6-10.2) L White Blood Count 11.9 K/UL (4.8-10.8) H Red Blood Count 3.30 M/UL (4.70-6.10) L Hemoglobin 9.1 G/DL (14.2-18.0) L Hematocrit 29.3 % (42.0-52.0) L Mean Corpuscular Volume 89 FL (80-99) Mean Corpuscular Hemoglobin 27.6 PG (27.0-31.0) Mean Corpuscular Hemoglobin Concent 31.1 G/DL (32.0-36.0) L Red Cell Distribution Width 17.6 % (11.6-14.8) H Platelet Count 164 K/UL (150-450) Mean Platelet Volume 7.9 FL (6.5-10.1) Neutrophils (%) (Auto) 83.8 % (45.0-75.0) H Lymphocytes (%) (Auto) 5.5 % (20.0-45.0) L Monocytes (%) (Auto) 9.3 % (1.0-10.0) Eosinophils (%) (Auto) 0.5 % (0.0-3.0) Basophils (%) (Auto) 0.9 % (0.0-2.0) Current Medications Medications (Trade) Dose Ordered Sig/Shraddha Route PRN Reason Start Time Stop Time Status Last Admin Dose Admin Acetaminophen (Tylenol) 650 mg Q4H PRN ORAL fever>100.5 11/02/16 17:00 12/02/16 16:59 11/22/16 06:12 Acetaminophen 650 mg 650 mg Q4H PRN GT headache 11/03/16 08:00 12/03/16 07:59 11/24/16 10:28 Albuterol/ Ipratropium (DuoNeb 0.5-3(2.5)mg/3ml) 3 ml Q4H PRN HHN Shortness of Breath 11/24/16 08:15 11/29/16 08:14 Chlorhexidine Gluconate (Mariluz-Hex 2%) 1 applic DAILY TOPIC 11/23/16 09:00 12/23/16 08:59 11/25/16 08:06 Colistimethate Sodium 150 mg 150 mg Q12HR@10,22 INH 11/09/16 22:00 11/29/16 21:59 11/25/16 09:19 Dextrose (Dextrose 50%) STAT PRN IV Hypoglycemia 11/02/16 17:00 12/02/16 16:59 Insulin Aspart (NovoLOG) start when feeding started Q6HR SUBQ 11/02/16 18:00 12/02/16 17:59 11/25/16 00:12 Lansoprazole (Prevacid) 30 mg DAILY GT 10/31/16 09:00 11/30/16 08:59 11/25/16 08:06 Levalbuterol HCl (Xopenex) 1.25 mg Q4H PRN HHN Shortness of Breath 11/23/16 01:45 11/28/16 01:44 11/24/16 13:34 Levofloxacin (Levaquin 750mg/ D5W) 150 ml @ 100 mls/hr Q24H IVPB 11/11/16 14:30 12/22/16 14:29 11/24/16 14:29 Metoclopramide HCl (Reglan) 10 mg TID GT 11/24/16 09:00 12/24/16 08:59 11/25/16 08:06 Ondansetron HCl (Zofran) 4 mg Q6H PRN IVP Nausea & Vomiting 11/02/16 17:00 12/02/16 16:59 Polyethylene Glycol (Miralax) 17 gm BEDTIME ORAL 11/24/16 21:00 12/24/16 20:59 Sodium Chloride (NS) 500 ml @ 999 mls/hr PRN PRN IVPB For hypotension 11/09/16 17:15 12/09/16 17:14 11/10/16 22:00 KIMBERLEE HINKLE M.D. November 25, 2016 11:20
--- NOTE | 2016-11-25 11:52 | Internal Med Progress Note ---
Subjective Date of Service: November 25, 2016 Physician Name Tadeo Verdin Attending Physician Steve Rader MD Current Medications Medications (Trade) Dose Ordered Sig/Shraddha Route PRN Reason Start Time Stop Time Status Last Admin Dose Admin Acetaminophen (Tylenol) 650 mg Q4H PRN ORAL fever>100.5 11/02/16 17:00 12/02/16 16:59 11/22/16 06:12 Acetaminophen 650 mg 650 mg Q4H PRN GT headache 11/03/16 08:00 12/03/16 07:59 11/24/16 10:28 Albuterol/ Ipratropium (DuoNeb 0.5-3(2.5)mg/3ml) 3 ml Q4H PRN HHN Shortness of Breath 11/24/16 08:15 11/29/16 08:14 Chlorhexidine Gluconate (Mariluz-Hex 2%) 1 applic DAILY TOPIC 11/23/16 09:00 12/23/16 08:59 11/25/16 08:06 Colistimethate Sodium 150 mg 150 mg Q12HR@10,22 INH 11/09/16 22:00 11/29/16 21:59 11/25/16 09:19 Dextrose (Dextrose 50%) STAT PRN IV Hypoglycemia 11/02/16 17:00 12/02/16 16:59 Insulin Aspart (NovoLOG) start when feeding started Q6HR SUBQ 11/02/16 18:00 12/02/16 17:59 11/25/16 00:12 Lansoprazole (Prevacid) 30 mg DAILY GT 10/31/16 09:00 11/30/16 08:59 11/25/16 08:06 Levalbuterol HCl (Xopenex) 1.25 mg Q4H PRN HHN Shortness of Breath 11/23/16 01:45 11/28/16 01:44 11/24/16 13:34 Levofloxacin (Levaquin 750mg/ D5W) 150 ml @ 100 mls/hr Q24H IVPB 11/11/16 14:30 12/22/16 14:29 11/24/16 14:29 Metoclopramide HCl (Reglan) 10 mg TID GT 11/24/16 09:00 12/24/16 08:59 11/25/16 08:06 Ondansetron HCl (Zofran) 4 mg Q6H PRN IVP Nausea & Vomiting 11/02/16 17:00 12/02/16 16:59 Polyethylene Glycol (Miralax) 17 gm BEDTIME ORAL 11/24/16 21:00 12/24/16 20:59 Sodium Chloride (NS) 500 ml @ 999 mls/hr PRN PRN IVPB For hypotension 11/09/16 17:15 12/09/16 17:14 11/10/16 22:00 Allergies: Coded Allergies: No Known Allergies (Unverified , 06/17/16) ROS Limited/Unobtainable: No HEENT: Reports: no symptoms Cardiovascular: Reports: no symptoms Respiratory: Reports: no symptoms Gastrointestinal/Abdominal: Reports: no symptoms Genitourinary: Reports: no symptoms Neurologic/Psychiatric: Reports: no symptoms Subjective 66 YO M admitted with respiratory failure. JORDAN. Trach with mech vent. Cover for Int Med-Dr Rader. S/P thoracentesis 11/21/16 Objective Last Vital Signs Date Time Temp Pulse Resp B/P Pulse Ox O2 Delivery O2 Flow Rate FiO2 11/25/16 11:19 113 18 40 11/25/16 09:16 100 Mechanical Ventilator 11/25/16 07:31 97.5 102/66 11/24/16 23:40 40.0 Laboratory Tests Test 11/25/16 03:40 11/25/16 05:00 Sodium Level 139 mEQ/L (135-145) Potassium Level 4.0 mEQ/L (3.4-4.9) Chloride Level 96 mEQ/L (98-107) L Carbon Dioxide Level 37 mEQ/L (20-30) H Anion Gap 6 (5-15) Blood Urea Nitrogen 11 mg/dL (7-23) Creatinine 0.5 mg/dL (0.7-1.2) L Estimat Glomerular Filtration Rate > 60 mL/min (>60) Glucose Level 64 mg/dL (74-106) L Calcium Level 8.0 mg/dL (8.6-10.2) L White Blood Count 11.9 K/UL (4.8-10.8) H Red Blood Count 3.30 M/UL (4.70-6.10) L Hemoglobin 9.1 G/DL (14.2-18.0) L Hematocrit 29.3 % (42.0-52.0) L Mean Corpuscular Volume 89 FL (80-99) Mean Corpuscular Hemoglobin 27.6 PG (27.0-31.0) Mean Corpuscular Hemoglobin Concent 31.1 G/DL (32.0-36.0) L Red Cell Distribution Width 17.6 % (11.6-14.8) H Platelet Count 164 K/UL (150-450) Mean Platelet Volume 7.9 FL (6.5-10.1) Neutrophils (%) (Auto) 83.8 % (45.0-75.0) H Lymphocytes (%) (Auto) 5.5 % (20.0-45.0) L Monocytes (%) (Auto) 9.3 % (1.0-10.0) Eosinophils (%) (Auto) 0.5 % (0.0-3.0) Basophils (%) (Auto) 0.9 % (0.0-2.0) Intake and Output 11/24/16 11/25/16 19:00 07:00 Intake Total 1220 ml 495 ml Output Total 400 ml 400 ml Balance 820 ml 95 ml Free Water 450 ml 300 ml IV Total 150 ml Tube Feeding 620 ml 195 ml Output Urine Total 400 ml 400 ml # Voids 1 # Bowel Movements 3 Objective General Appearance: moderate distress, thin EENT: PERRL/EOMI, normal ENT inspection Neck: non-tender, normal alignment, supple Cardiovascular: normal peripheral pulses, normal rate, regular rhythm, no gallop/murmur, no JVD Respiratory/Chest: Mech vent; trach; respiratory distress, crackles/rales, rhonchi - bilaterally, expiratory wheezing Abdomen: non tender, soft, no organomegaly, no mass, decreased bowel sounds Extremities: normal range of motion Skin: normal pigmentation, warm/dry Assessment/Plan Problem List: (1) Lung nodule (2) DVT (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 (3) Acute respiratory failure Assessment & Plan: S/P tracheostomy 10/03/16. Cont vent per pulm (4) COPD exacerbation Assessment & Plan: Continue duoneb. Continue vent per pulmonary. (5) Pneumonia Assessment & Plan: Pseudamonas. New RLL consolidation. Continue colistin inh , micafungin, linezolid, levaquin and meropenem per ID (6) Leukocytosis Assessment & Plan: Worsening. Await Culture results. Start meropenem, levaquin, micafungin, colistin (inh) and linezolid per ID (7) Dysphagia Assessment & Plan: See GI consult- S/P PEG 10/04/16. (8) Hypoglycemia Assessment & Plan: D50 prn; decrease insulin sliding scale. (9) Dysuria Assessment & Plan: D/C garcia cath. (10) Severe sepsis Assessment & Plan: Blood cultures X2. Cont meropenem, colistin Inh, levaquin, micafungin and linezolid per ID. (11) Hypotension Assessment & Plan: ICU status for pressors, (12) Gastric mass (13) Mass of colon Assessment & Plan: Cecum and colon masses. See GI note. (14) UTI (urinary tract infection) due to Enterococcus Assessment & Plan: Love. On micafungin. See ID note. (15) Empyema Assessment & Plan: Possible per pulmonary. Cont Micafungin, meropenem, colistin (inh) and linezolid per ID (16) Anemia Assessment & Plan: S/P transfusion 1 unit PRBC (17) Pleural effusion on right Assessment & Plan: S/P Thoracentesis 11/21/16. Assessment/Plan Await placement @ [facility] fac TADEO VERDIN November 25, 2016 11:52
[2016-11-25] MEDS: Levalbuterol Inh UD 1.25mg/0.5ml HHN PRN (14:45)
[2016-11-25] MEDS ORDERED: NS 275ml ONE (17:08)
--- NOTE | 2016-11-25 17:22 | Cardiac Electrophysiology PN ---
Assessment/Plan Assessment/Plan 1. Sinus tachycardia due to sepsis. No SVT or fib. 2. Hypotension .Resolved. On ABx. S/P PRBC 11/18/16. 3. Severe COPD and pulmonary hypertension 4. Ventilator-dependant respiratory failure, status post tracheostomy. 5. Dysphagia, status post percutaneous endoscopic gastrostomy placement. 6. Sepsis due to MDR ACB and PSA , on 3 intravenous antibiotics per ID. 7. Lung abscess 5-6 cm cavitary focus suspicious for lung abscess in the right upper lobe. 8. Colonic mass and anemia.S/P transfusion. 9. Generalized edema. Upper extremity doppler No DVT 10. Pleural effusion, SP thoracentesis - no evidence of empyema 11/21 DW RN Subjective Subjective On JORDAN on Vent via tracheostomy.Remained in SR . No events overnight. Objective Last 24 Hour Vital Signs Date Time Temp Pulse Resp B/P Pulse Ox O2 Delivery O2 Flow Rate FiO2 11/25/16 17:13 89 16 40 11/25/16 14:55 86 16 100 Mechanical Ventilator 40 11/25/16 14:45 86 16 40 11/25/16 14:45 40 11/25/16 14:45 86 19 100 Mechanical Ventilator 40 11/25/16 13:12 107 17 40 11/25/16 12:00 97.5 90 16 99/71 98 Mechanical Ventilator 11/25/16 12:00 50 11/25/16 11:19 113 18 40 11/25/16 09:17 88 16 40 11/25/16 09:16 88 16 100 Mechanical Ventilator 40 11/25/16 09:00 40 11/25/16 09:00 89 16 99 Mechanical Ventilator 40 11/25/16 08:00 104 11/25/16 07:39 50 11/25/16 07:31 97.5 84 16 102/66 99 Mechanical Ventilator 40 11/25/16 06:45 119 16 40 11/25/16 05:46 101 17 40 11/25/16 04:00 110 11/25/16 04:00 98.8 110 18 118/67 98 Mechanical Ventilator 40 11/25/16 04:00 50 11/25/16 03:41 102 22 40 11/25/16 01:23 95 16 40 11/25/16 00:00 50 11/25/16 00:00 112 11/25/16 00:00 98.7 111 18 116/75 96 Mechanical Ventilator 40 11/24/16 23:40 102 16 100 Mechanical Ventilator 40.0 40 11/24/16 23:23 100 16 40 11/24/16 23:23 40 11/24/16 23:22 100 16 100 Mechanical Ventilator 40 11/24/16 20:51 97 21 40 11/24/16 20:00 50 11/24/16 20:00 121 11/24/16 20:00 97.7 94 18 108/69 100 Mechanical Ventilator 40 11/24/16 19:45 92 22 40 11/24/16 18:34 107 11/24/16 17:22 113 20 40 Intake and Output 11/24/16 11/25/16 19:00 07:00 Intake Total 1220 ml 495 ml Output Total 400 ml 400 ml Balance 820 ml 95 ml Free Water 450 ml 300 ml IV Total 150 ml Tube Feeding 620 ml 195 ml Output Urine Total 400 ml 400 ml # Voids 1 # Bowel Movements 3 Laboratory Tests Test 11/25/16 03:40 11/25/16 05:00 Sodium Level 139 mEQ/L (135-145) Potassium Level 4.0 mEQ/L (3.4-4.9) Chloride Level 96 mEQ/L (98-107) L Carbon Dioxide Level 37 mEQ/L (20-30) H Anion Gap 6 (5-15) Blood Urea Nitrogen 11 mg/dL (7-23) Creatinine 0.5 mg/dL (0.7-1.2) L Estimat Glomerular Filtration Rate > 60 mL/min (>60) Glucose Level 64 mg/dL (74-106) L Calcium Level 8.0 mg/dL (8.6-10.2) L White Blood Count 11.9 K/UL (4.8-10.8) H Red Blood Count 3.30 M/UL (4.70-6.10) L Hemoglobin 9.1 G/DL (14.2-18.0) L Hematocrit 29.3 % (42.0-52.0) L Mean Corpuscular Volume 89 FL (80-99) Mean Corpuscular Hemoglobin 27.6 PG (27.0-31.0) Mean Corpuscular Hemoglobin Concent 31.1 G/DL (32.0-36.0) L Red Cell Distribution Width 17.6 % (11.6-14.8) H Platelet Count 164 K/UL (150-450) Mean Platelet Volume 7.9 FL (6.5-10.1) Neutrophils (%) (Auto) 83.8 % (45.0-75.0) H Lymphocytes (%) (Auto) 5.5 % (20.0-45.0) L Monocytes (%) (Auto) 9.3 % (1.0-10.0) Eosinophils (%) (Auto) 0.5 % (0.0-3.0) Basophils (%) (Auto) 0.9 % (0.0-2.0) Objective HEAD AND NECK: No jugular venous distention, tracheostomy intact. LUNGS: Clear bilaterally. CARDIOVASCULAR: Tachycardic S1 and S2 with no gallop or murmur. ABDOMEN: Soft. G-tube intact. EXTREMITIES: Anasarca.PICC line in place left arm. OSWALD HILLS November 25, 2016 17:22
[2016-11-25] MEDS: Miralax 17gm pkt ORAL SCH (21:00)
--- NOTE | 2016-11-25 21:53 | General Progress Note ---
Assessment/Plan Assessment/Plan Assessment - Colon polyps/mass seen on CT - patient has declined GI w/u - COPD - respiratory failure - PNA and lung abscess - s/p trach and PEG - dysphagia - Leukocytosis - h/o OB (+) - Anemia - gradual decline - Poor PX Recommendations - transfuse PRN - elevate HOB - abx - GT care / TF - follow labs - will see pt intermittently Subjective Allergies: Coded Allergies: No Known Allergies (Unverified , 06/17/16) Subjective calm watching TV no abd c/o tolerating cycled TF Objective Last 24 Hour Vital Signs Date Time Temp Pulse Resp B/P Pulse Ox O2 Delivery O2 Flow Rate FiO2 11/25/16 20:47 40 11/25/16 20:46 106 17 100 Mechanical Ventilator 40 11/25/16 20:46 106 17 40 11/25/16 20:00 40 11/25/16 20:00 97.7 106 16 116/81 97 Mechanical Ventilator 40 11/25/16 19:33 63 17 40 11/25/16 17:13 89 16 40 11/25/16 16:00 97.7 106 16 127/73 99 Mechanical Ventilator 11/25/16 16:00 50 11/25/16 16:00 88 11/25/16 14:55 86 16 100 Mechanical Ventilator 40 11/25/16 14:45 86 16 40 11/25/16 14:45 40 11/25/16 14:45 86 19 100 Mechanical Ventilator 40 11/25/16 13:12 107 17 40 11/25/16 12:00 107 11/25/16 12:00 97.5 90 16 99/71 98 Mechanical Ventilator 11/25/16 12:00 50 11/25/16 11:19 113 18 40 11/25/16 09:17 88 16 40 11/25/16 09:16 88 16 100 Mechanical Ventilator 40 11/25/16 09:00 40 11/25/16 09:00 89 16 99 Mechanical Ventilator 40 11/25/16 08:54 88 11/25/16 08:00 104 11/25/16 07:39 50 11/25/16 07:31 97.5 84 16 102/66 99 Mechanical Ventilator 40 11/25/16 06:45 119 16 40 11/25/16 05:46 101 17 40 11/25/16 04:00 110 11/25/16 04:00 98.8 110 18 118/67 98 Mechanical Ventilator 40 11/25/16 04:00 50 11/25/16 03:41 102 22 40 11/25/16 01:23 95 16 40 11/25/16 00:00 50 11/25/16 00:00 112 11/25/16 00:00 98.7 111 18 116/75 96 Mechanical Ventilator 40 11/24/16 23:40 102 16 100 Mechanical Ventilator 40.0 40 11/24/16 23:23 100 16 40 11/24/16 23:23 40 11/24/16 23:22 100 16 100 Mechanical Ventilator 40 Intake and Output 11/24/16 11/25/16 19:00 07:00 Intake Total 1220 ml 495 ml Output Total 400 ml 400 ml Balance 820 ml 95 ml Free Water 450 ml 300 ml IV Total 150 ml Tube Feeding 620 ml 195 ml Output Urine Total 400 ml 400 ml # Voids 1 # Bowel Movements 3 Laboratory Tests 11/25/16 03:40: Sodium Level 139, Potassium Level 4.0, Chloride Level 96L, Carbon Dioxide Level 37H, Anion Gap 6, Blood Urea Nitrogen 11, Creatinine 0.5L, Estimat Glomerular Filtration Rate > 60, Glucose Level 64L, Calcium Level 8.0L 11/25/16 05:00: White Blood Count 11.9H, Red Blood Count 3.30L, Hemoglobin 9.1L, Hematocrit 29.3L, Mean Corpuscular Volume 89, Mean Corpuscular Hemoglobin 27.6, Mean Corpuscular Hemoglobin Concent 31.1L, Red Cell Distribution Width 17.6H, Platelet Count 164, Mean Platelet Volume 7.9, Neutrophils (%) (Auto) 83.8H, Lymphocytes (%) (Auto) 5.5L, Monocytes (%) (Auto) 9.3, Eosinophils (%) (Auto) 0.5, Basophils (%) (Auto) 0.9 Height (Feet): 6 Height (Inches): 2.00 Weight (Pounds): 126 Objective Elderly AA man NCAT (+) trach Coarse BS RRR soft NT abdomen, (+) GT poorly responsive ROSEMARY BURROUGHS November 25, 2016 21:53
[2016-11-26] VITALS (7 sets, daily range): BP systolic 95–127; BP diastolic 61–83
[2016-11-26 05:35] LABS: EOSINOPHILS % (AUTO) 0.7 % (0.0-3.0); LYMPHOCYTES % (AUTO) 12.5 % (20.0-45.0); MEAN CORPUSCULAR HEMOGLOBIN 27.9 PG (27.0-31.0); MEAN CORPUSCULAR HGB CONC 31.5 G/DL (32.0-36.0); MEAN CORPUSCULAR VOLUME 89 FL (80-99); MEAN PLATELET VOLUME 7.2 FL (6.5-10.1); MONOCYTES % (AUTO) 11.7 % (1.0-10.0); NEUTROPHILS % (AUTO) 74.1 % (45.0-75.0); PLATELET COUNT 200 K/UL (150-450); RED BLOOD COUNT 3.59 M/UL (4.70-6.10); RED CELL DISTRIBUTION WIDTH 17.2 % (11.6-14.8); WHITE BLOOD COUNT 12.6 K/UL (4.8-10.8)
[2016-11-26] MEDS: NovoLOG Insulin Flexpen SUBQ SCH ×4 (06:00→23:40)
[2016-11-26 06:10] LABS: ALANINE AMINOTRANSFERASE 20 U/L (3-41); ALBUMIN/GLOBULIN RATIO 0.3 (1.0-2.7); ANION GAP 6 (5-15); ASPARTATE AMINO TRANSFERASE 33 U/L (5-40); CALCIUM 8.2 mg/dL (8.6-10.2); CARBON DIOXIDE 36 mEQ/L (20-30); CHLORIDE 96 mEQ/L (98-107); CREATININE 0.5 mg/dL (0.7-1.2); GLOMERULAR FILTRATION RATE > 60 mL/min (>60); HEMOLYSIS 4; POTASSIUM 4.3 mEQ/L (3.4-4.9); SODIUM 138 mEQ/L (135-145); TOTAL PROTEIN 6.2 g/dL (6.6-8.7)
[2016-11-26] MEDS: Colistin for inhalation INH SCH ×2 (06:52→21:08)
[2016-11-26] MEDS: Metoclopramide 10mg/10ml Liq GT SCH ×3 (09:00→18:25)
[2016-11-26] MEDS: Acetaminophen 650mg/20.3ml GT PRN (09:01)
[2016-11-26] MEDS: Levalbuterol Inh UD 1.25mg/0.5ml HHN PRN ×3 (09:57→19:14)
--- NOTE | 2016-11-26 10:43 | Diagnostic Imaging Report ---
Indication: DYSPNEA Technique: One view of the chest Comparison: 11/25/2016 Findings: Dense consolidation throughout the right lung persists, unchanged. Tracheostomy remains. Interstitial disease at the left lung base persists. Pulmonary hyperinflation consistent with COPD persists. Left arm PICC is again demonstrated. Findings are overall unchanged Impression: Unchanged, over one day, findings as above.
--- NOTE | 2016-11-26 10:46 | Infectious Diseases Prog Note ---
Assessment/Plan Assessment/Plan Plan ASSESSMENT: 66 y/o male with: // VAP / RUL Pna , as per pul no evidence of abscess - SCx: MDR ACB and PSA , repeat Scx: PSA - SP thoracentesis - no evide of empyema 11/21 - CT 11/14 :Extensive pneumonia involving both lungs as described above. 5-6 cm cavitary focus suspicious for lung abscess in the right upper lobe. // Probable UTI : UCx yeast and VRE b SP Rx // Leukocytosis - mild ( DVT, probable CA contributing, SP steroids ) // Hypotension SP // Febrile low grade SP // HIV and Hep B/C : neg // thoracentesis 11/21 // Colon mass ro cancer , GI is following CT: Large cecal mass and other polypoid colonic masses, detailed previously , again demonstrated // SP PEG 10/04 // Chronic VDRF SP trach // Severe pulmonary HTN / grade I diastolic dysfunction / mod TR // Pulmonary nodules // Chronic RLE DVT // Tobacco abuse // [facility] resident // Negative MRSA, VRE screens // NKDA // Full Code PLAN: - cont Levaquin d# 15 / , Colistin INH d# 18 / ( SP Merrem, Zyvox and Mycamine d# 14 ) ( 11/09 SP Vanco d# 6 / 10 and oral Vanco d# 5 ) ( 10/17 SP Ceftazidime d# 14 ) ( 10/13 SP Jairon nebs d# 14 ) ( 10/11 SP Flagyl d# 10 ) ( 10/04 SP oral Vanco d# 3 ) ( 09/24 SP amikacin, invanz d# 5 / 5 ) ( 09/21 SP IV vancomycin d# 2 ) - monitor CBC, temperatures - monitor BMP - monitor CXR - vent support, trach care, aspiration precautions Subjective Allergies: Coded Allergies: No Known Allergies (Unverified , 06/17/16) Subjective on vent Objective Vital Signs Last 24 Hour Vital Signs Date Time Temp Pulse Resp B/P Pulse Ox O2 Delivery O2 Flow Rate FiO2 11/26/16 09:57 104 17 97 Mechanical Ventilator 40 11/26/16 09:57 40 11/26/16 08:34 95 16 40 11/26/16 08:00 97.8 115 16 100/68 100 Mechanical Ventilator 40 11/26/16 07:11 110 17 100 Mechanical Ventilator 40 11/26/16 06:52 109 17 100 Mechanical Ventilator 40 11/26/16 06:52 40 11/26/16 06:52 109 17 40 11/26/16 05:45 81 18 40 11/26/16 04:00 40 11/26/16 04:00 98.8 90 16 103/63 97 Mechanical Ventilator 40 11/26/16 04:00 117 11/26/16 03:26 75 17 40 11/26/16 01:26 95 16 40 11/26/16 00:57 99.0 114 18 125/83 99 Mechanical Ventilator 40 11/26/16 00:00 102 11/26/16 00:00 40 11/25/16 23:01 111 16 40 11/25/16 20:56 110 16 100 Mechanical Ventilator 40 11/25/16 20:47 40 11/25/16 20:46 106 17 100 Mechanical Ventilator 40 11/25/16 20:46 106 17 40 11/25/16 20:00 40 11/25/16 20:00 97.7 106 16 116/81 97 Mechanical Ventilator 40 11/25/16 20:00 106 11/25/16 19:33 63 17 40 11/25/16 17:13 89 16 40 11/25/16 16:00 97.7 106 16 127/73 99 Mechanical Ventilator 11/25/16 16:00 50 11/25/16 16:00 88 11/25/16 14:55 86 16 100 Mechanical Ventilator 40 11/25/16 14:45 86 16 40 11/25/16 14:45 40 11/25/16 14:45 86 19 100 Mechanical Ventilator 40 11/25/16 13:12 107 17 40 11/25/16 12:00 107 11/25/16 12:00 97.5 90 16 99/71 98 Mechanical Ventilator 11/25/16 12:00 50 11/25/16 11:19 113 18 40 Height (Feet): 6 Height (Inches): 2.00 Weight (Pounds): 126 HEENT: anicteric Respiratory/Chest: decreased breath sounds Cardiovascular: regular rhythm Abdomen: no organomegaly Laboratory Tests Test 11/26/16 03:40 White Blood Count 12.6 K/UL (4.8-10.8) H Red Blood Count 3.59 M/UL (4.70-6.10) L Hemoglobin 10.0 G/DL (14.2-18.0) L Hematocrit 31.9 % (42.0-52.0) L Mean Corpuscular Volume 89 FL (80-99) Mean Corpuscular Hemoglobin 27.9 PG (27.0-31.0) Mean Corpuscular Hemoglobin Concent 31.5 G/DL (32.0-36.0) L Red Cell Distribution Width 17.2 % (11.6-14.8) H Platelet Count 200 K/UL (150-450) Mean Platelet Volume 7.2 FL (6.5-10.1) Neutrophils (%) (Auto) 74.1 % (45.0-75.0) Lymphocytes (%) (Auto) 12.5 % (20.0-45.0) L Monocytes (%) (Auto) 11.7 % (1.0-10.0) H Eosinophils (%) (Auto) 0.7 % (0.0-3.0) Basophils (%) (Auto) 1.0 % (0.0-2.0) Sodium Level 138 mEQ/L (135-145) Potassium Level 4.3 mEQ/L (3.4-4.9) Chloride Level 96 mEQ/L (98-107) L Carbon Dioxide Level 36 mEQ/L (20-30) H Anion Gap 6 (5-15) Blood Urea Nitrogen 9 mg/dL (7-23) Creatinine 0.5 mg/dL (0.7-1.2) L Estimat Glomerular Filtration Rate > 60 mL/min (>60) Glucose Level 99 mg/dL (74-106) Calcium Level 8.2 mg/dL (8.6-10.2) L Total Bilirubin 0.3 mg/dL (0.0-1.2) Aspartate Amino Transf (AST/SGOT) 33 U/L (5-40) Alanine Aminotransferase (ALT/SGPT) 20 U/L (3-41) Alkaline Phosphatase 195 U/L (40-129) H Pro-B-Type Natriuretic Peptide 1224 pg/mL (0-125) H Total Protein 6.2 g/dL (6.6-8.7) L Albumin 1.5 g/dL (3.5-5.2) L Globulin 4.7 g/dL Albumin/Globulin Ratio 0.3 (1.0-2.7) L Current Medications Medications (Trade) Dose Ordered Sig/Shraddha Route PRN Reason Start Time Stop Time Status Last Admin Dose Admin Acetaminophen (Tylenol) 650 mg Q4H PRN ORAL fever>100.5 11/02/16 17:00 12/02/16 16:59 11/22/16 06:12 Acetaminophen 650 mg 650 mg Q4H PRN GT headache 11/03/16 08:00 12/03/16 07:59 11/26/16 09:01 Albuterol/ Ipratropium (DuoNeb 0.5-3(2.5)mg/3ml) 3 ml Q4H PRN HHN Shortness of Breath 11/24/16 08:15 11/29/16 08:14 Chlorhexidine Gluconate (Mariluz-Hex 2%) 1 applic DAILY TOPIC 11/23/16 09:00 12/23/16 08:59 11/25/16 08:06 Colistimethate Sodium 150 mg 150 mg Q12HR@10,22 INH 11/09/16 22:00 11/29/16 21:59 11/26/16 06:52 Dextrose (Dextrose 50%) STAT PRN IV Hypoglycemia 11/02/16 17:00 12/02/16 16:59 Insulin Aspart (NovoLOG) start when feeding started Q6HR SUBQ 11/02/16 18:00 12/02/16 17:59 11/25/16 23:50 Lansoprazole (Prevacid) 30 mg DAILY GT 10/31/16 09:00 11/30/16 08:59 11/26/16 09:00 Levalbuterol HCl (Xopenex) 1.25 mg Q4H PRN HHN Shortness of Breath 11/23/16 01:45 11/28/16 01:44 11/26/16 09:57 Levofloxacin (Levaquin 750mg/ D5W) 150 ml @ 100 mls/hr Q24H IVPB 11/11/16 14:30 12/22/16 14:29 11/25/16 14:27 Metoclopramide HCl (Reglan) 10 mg TID GT 11/24/16 09:00 12/24/16 08:59 11/26/16 09:00 Ondansetron HCl (Zofran) 4 mg Q6H PRN IVP Nausea & Vomiting 11/02/16 17:00 12/02/16 16:59 Polyethylene Glycol (Miralax) 17 gm BEDTIME ORAL 11/24/16 21:00 12/24/16 20:59 Sodium Chloride (NS) 500 ml @ 999 mls/hr PRN PRN IVPB For hypotension 11/09/16 17:15 12/09/16 17:14 11/10/16 22:00 KIMBERLEE HINKLE M.D. November 26, 2016 10:46
[2016-11-26] MEDS: Dyna-Hex 2% Top Sol 8oz TOPIC SCH (12:30)
--- NOTE | 2016-11-26 16:09 | Cardiac Electrophysiology PN ---
Assessment/Plan Assessment/Plan 1. Sinus tachycardia due to sepsis. No SVT or fib. HR better. 2. Hypotension .Resolved. On ABx. S/P PRBC 11/18/16. 3. Severe COPD and pulmonary hypertension 4. Ventilator-dependant respiratory failure, status post tracheostomy. 5. Dysphagia, status post percutaneous endoscopic gastrostomy placement. 6. Sepsis due to MDR ACB and PSA , on intravenous antibiotics per ID. 7. 5-6 cm cavitary focus suspicious for lung abscess in the right upper lobe. 8. Colonic mass and anemia.S/P transfusion. 9. Generalized edema. Upper extremity doppler No DVT 10. Pleural effusion, SP thoracentesis - no evidence of empyema 11/21 DW RN Subjective Subjective On JORDAN on Vent via tracheostomy.Comfortable with no events overnight. Objective Last 24 Hour Vital Signs Date Time Temp Pulse Resp B/P Pulse Ox O2 Delivery O2 Flow Rate FiO2 11/26/16 15:57 98.3 98 16 95/61 100 Mechanical Ventilator 40 11/26/16 14:57 106 16 100 Mechanical Ventilator 40 11/26/16 14:47 104 16 40 11/26/16 14:47 104 16 100 Mechanical Ventilator 40 11/26/16 14:47 40 11/26/16 12:38 84 16 40 11/26/16 12:00 40 11/26/16 11:34 97.8 89 16 127/75 96 Room Air 11/26/16 10:59 85 16 40 11/26/16 10:07 88 16 100 Mechanical Ventilator 40 11/26/16 09:57 40 11/26/16 09:57 85 16 100 Mechanical Ventilator 40 11/26/16 08:34 95 16 40 11/26/16 08:00 97.8 115 16 100/68 100 Mechanical Ventilator 40 11/26/16 08:00 40 11/26/16 07:11 110 17 100 Mechanical Ventilator 40 11/26/16 06:52 109 17 100 Mechanical Ventilator 40 11/26/16 06:52 40 11/26/16 06:52 109 17 40 11/26/16 05:45 81 18 40 11/26/16 04:00 40 11/26/16 04:00 98.8 90 16 103/63 97 Mechanical Ventilator 40 11/26/16 04:00 117 11/26/16 03:26 75 17 40 11/26/16 01:26 95 16 40 11/26/16 00:57 99.0 114 18 125/83 99 Mechanical Ventilator 40 11/26/16 00:00 102 11/26/16 00:00 40 11/25/16 23:01 111 16 40 11/25/16 20:56 110 16 100 Mechanical Ventilator 40 11/25/16 20:47 40 11/25/16 20:46 106 17 100 Mechanical Ventilator 40 11/25/16 20:46 106 17 40 11/25/16 20:00 40 11/25/16 20:00 97.7 106 16 116/81 97 Mechanical Ventilator 40 11/25/16 20:00 106 11/25/16 19:33 63 17 40 11/25/16 17:13 89 16 40 Intake and Output 11/25/16 11/26/16 19:00 07:00 Intake Total 1400 ml 195 ml Output Total 1200 ml 1400 ml Balance 200 ml -1205 ml Free Water 600 ml IV Total 150 ml Tube Feeding 650 ml 195 ml Output Urine Total 1200 ml 1400 ml # Bowel Movements 1 Laboratory Tests Test 11/26/16 03:40 White Blood Count 12.6 K/UL (4.8-10.8) H Red Blood Count 3.59 M/UL (4.70-6.10) L Hemoglobin 10.0 G/DL (14.2-18.0) L Hematocrit 31.9 % (42.0-52.0) L Mean Corpuscular Volume 89 FL (80-99) Mean Corpuscular Hemoglobin 27.9 PG (27.0-31.0) Mean Corpuscular Hemoglobin Concent 31.5 G/DL (32.0-36.0) L Red Cell Distribution Width 17.2 % (11.6-14.8) H Platelet Count 200 K/UL (150-450) Mean Platelet Volume 7.2 FL (6.5-10.1) Neutrophils (%) (Auto) 74.1 % (45.0-75.0) Lymphocytes (%) (Auto) 12.5 % (20.0-45.0) L Monocytes (%) (Auto) 11.7 % (1.0-10.0) H Eosinophils (%) (Auto) 0.7 % (0.0-3.0) Basophils (%) (Auto) 1.0 % (0.0-2.0) Sodium Level 138 mEQ/L (135-145) Potassium Level 4.3 mEQ/L (3.4-4.9) Chloride Level 96 mEQ/L (98-107) L Carbon Dioxide Level 36 mEQ/L (20-30) H Anion Gap 6 (5-15) Blood Urea Nitrogen 9 mg/dL (7-23) Creatinine 0.5 mg/dL (0.7-1.2) L Estimat Glomerular Filtration Rate > 60 mL/min (>60) Glucose Level 99 mg/dL (74-106) Calcium Level 8.2 mg/dL (8.6-10.2) L Total Bilirubin 0.3 mg/dL (0.0-1.2) Aspartate Amino Transf (AST/SGOT) 33 U/L (5-40) Alanine Aminotransferase (ALT/SGPT) 20 U/L (3-41) Alkaline Phosphatase 195 U/L (40-129) H Pro-B-Type Natriuretic Peptide 1224 pg/mL (0-125) H Total Protein 6.2 g/dL (6.6-8.7) L Albumin 1.5 g/dL (3.5-5.2) L Globulin 4.7 g/dL Albumin/Globulin Ratio 0.3 (1.0-2.7) L Objective HEAD AND NECK: No jugular venous distention, tracheostomy intact. LUNGS: Clear bilaterally. CARDIOVASCULAR: Tachycardic S1 and S2 with no gallop or murmur. ABDOMEN: Soft. G-tube intact. EXTREMITIES: Anasarca.PICC line in place left arm. OSWALD HILLS November 26, 2016 16:09
[2016-11-26] MEDS ORDERED: D5 1/2NS 1000ml IV ONE (17:12)
[2016-11-26] MEDS ORDERED: NS 275ml ONE (17:12)
[2016-11-26] MEDS ORDERED: NS Irrig 1000ml ONE (17:12)
--- NOTE | 2016-11-26 18:22 | Internal Med Progress Note ---
Subjective Date of Service: November 26, 2016 Physician Name Tadeo Verdin Attending Physician Steve Rader MD Current Medications Medications (Trade) Dose Ordered Sig/Shraddha Route PRN Reason Start Time Stop Time Status Last Admin Dose Admin Acetaminophen (Tylenol) 650 mg Q4H PRN ORAL fever>100.5 11/02/16 17:00 12/02/16 16:59 11/22/16 06:12 Acetaminophen 650 mg 650 mg Q4H PRN GT headache 11/03/16 08:00 12/03/16 07:59 11/26/16 09:01 Albuterol/ Ipratropium (DuoNeb 0.5-3(2.5)mg/3ml) 3 ml Q4H PRN HHN Shortness of Breath 11/24/16 08:15 11/29/16 08:14 Chlorhexidine Gluconate (Mariluz-Hex 2%) 1 applic DAILY TOPIC 11/23/16 09:00 12/23/16 08:59 11/26/16 12:30 Colistimethate Sodium 150 mg 150 mg Q12HR@10,22 INH 11/09/16 22:00 11/29/16 21:59 11/26/16 06:52 Dextrose (Dextrose 50%) STAT PRN IV Hypoglycemia 11/02/16 17:00 12/02/16 16:59 Insulin Aspart (NovoLOG) start when feeding started Q6HR SUBQ 11/02/16 18:00 12/02/16 17:59 11/26/16 12:42 Lansoprazole (Prevacid) 30 mg DAILY GT 10/31/16 09:00 11/30/16 08:59 11/26/16 09:00 Levalbuterol HCl (Xopenex) 1.25 mg Q4H PRN HHN Shortness of Breath 11/23/16 01:45 11/28/16 01:44 11/26/16 14:47 Levofloxacin (Levaquin 750mg/ D5W) 150 ml @ 100 mls/hr Q24H IVPB 11/11/16 14:30 12/22/16 14:29 11/26/16 14:44 Metoclopramide HCl (Reglan) 10 mg TID GT 11/24/16 09:00 12/24/16 08:59 11/26/16 13:37 Ondansetron HCl (Zofran) 4 mg Q6H PRN IVP Nausea & Vomiting 11/02/16 17:00 12/02/16 16:59 Polyethylene Glycol (Miralax) 17 gm BEDTIME ORAL 11/24/16 21:00 12/24/16 20:59 Sodium Chloride (NS) 500 ml @ 999 mls/hr PRN PRN IVPB For hypotension 11/09/16 17:15 12/09/16 17:14 11/10/16 22:00 Allergies: Coded Allergies: No Known Allergies (Unverified , 06/17/16) ROS Limited/Unobtainable: No Constitutional: Reports: no symptoms HEENT: Reports: no symptoms Cardiovascular: Reports: no symptoms Respiratory: Reports: no symptoms Gastrointestinal/Abdominal: Reports: no symptoms Genitourinary: Reports: no symptoms Neurologic/Psychiatric: Reports: no symptoms Subjective 66 YO M admitted with respiratory failure. JORDAN. Trach with mech vent. Cover for Int Med-Dr Rader. S/P thoracentesis 11/21/16 Objective Last Vital Signs Date Time Temp Pulse Resp B/P Pulse Ox O2 Delivery O2 Flow Rate FiO2 11/26/16 17:01 93 16 40 11/26/16 15:57 98.3 95/61 100 Mechanical Ventilator 11/24/16 23:40 40.0 Laboratory Tests Test 11/26/16 03:40 White Blood Count 12.6 K/UL (4.8-10.8) H Red Blood Count 3.59 M/UL (4.70-6.10) L Hemoglobin 10.0 G/DL (14.2-18.0) L Hematocrit 31.9 % (42.0-52.0) L Mean Corpuscular Volume 89 FL (80-99) Mean Corpuscular Hemoglobin 27.9 PG (27.0-31.0) Mean Corpuscular Hemoglobin Concent 31.5 G/DL (32.0-36.0) L Red Cell Distribution Width 17.2 % (11.6-14.8) H Platelet Count 200 K/UL (150-450) Mean Platelet Volume 7.2 FL (6.5-10.1) Neutrophils (%) (Auto) 74.1 % (45.0-75.0) Lymphocytes (%) (Auto) 12.5 % (20.0-45.0) L Monocytes (%) (Auto) 11.7 % (1.0-10.0) H Eosinophils (%) (Auto) 0.7 % (0.0-3.0) Basophils (%) (Auto) 1.0 % (0.0-2.0) Sodium Level 138 mEQ/L (135-145) Potassium Level 4.3 mEQ/L (3.4-4.9) Chloride Level 96 mEQ/L (98-107) L Carbon Dioxide Level 36 mEQ/L (20-30) H Anion Gap 6 (5-15) Blood Urea Nitrogen 9 mg/dL (7-23) Creatinine 0.5 mg/dL (0.7-1.2) L Estimat Glomerular Filtration Rate > 60 mL/min (>60) Glucose Level 99 mg/dL (74-106) Calcium Level 8.2 mg/dL (8.6-10.2) L Total Bilirubin 0.3 mg/dL (0.0-1.2) Aspartate Amino Transf (AST/SGOT) 33 U/L (5-40) Alanine Aminotransferase (ALT/SGPT) 20 U/L (3-41) Alkaline Phosphatase 195 U/L (40-129) H Pro-B-Type Natriuretic Peptide 1224 pg/mL (0-125) H Total Protein 6.2 g/dL (6.6-8.7) L Albumin 1.5 g/dL (3.5-5.2) L Globulin 4.7 g/dL Albumin/Globulin Ratio 0.3 (1.0-2.7) L Intake and Output 11/25/16 11/26/16 19:00 07:00 Intake Total 1400 ml 195 ml Output Total 1200 ml 1400 ml Balance 200 ml -1205 ml Free Water 600 ml IV Total 150 ml Tube Feeding 650 ml 195 ml Output Urine Total 1200 ml 1400 ml # Bowel Movements 1 Objective General Appearance: moderate distress, thin EENT: PERRL/EOMI, normal ENT inspection Neck: non-tender, normal alignment, supple Cardiovascular: normal peripheral pulses, normal rate, regular rhythm, no gallop/murmur, no JVD Respiratory/Chest: Mech vent; trach; respiratory distress, crackles/rales, rhonchi - bilaterally, expiratory wheezing Abdomen: non tender, soft, no organomegaly, no mass, decreased bowel sounds Extremities: normal range of motion Skin: normal pigmentation, warm/dry Assessment/Plan Problem List: (1) Lung nodule (2) DVT (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 (3) Acute respiratory failure Assessment & Plan: S/P tracheostomy 10/03/16. Cont vent per pulm (4) COPD exacerbation Assessment & Plan: Continue duoneb. Continue vent per pulmonary. (5) Pneumonia Assessment & Plan: Pseudamonas. New RLL consolidation. Continue colistin inh , micafungin, linezolid, levaquin and meropenem per ID (6) Leukocytosis Assessment & Plan: Worsening. Await Culture results. Start meropenem, levaquin, micafungin, colistin (inh) and linezolid per ID (7) Dysphagia Assessment & Plan: See GI consult- S/P PEG 10/04/16. (8) Hypoglycemia Assessment & Plan: D50 prn; decrease insulin sliding scale. (9) Dysuria Assessment & Plan: D/C garcia cath. (10) Severe sepsis Assessment & Plan: Blood cultures X2. Cont meropenem, colistin Inh, levaquin, micafungin and linezolid per ID. (11) Hypotension Assessment & Plan: ICU status for pressors, (12) Gastric mass (13) Mass of colon Assessment & Plan: Cecum and colon masses. See GI note. (14) UTI (urinary tract infection) due to Enterococcus Assessment & Plan: Love. On micafungin. See ID note. (15) Empyema Assessment & Plan: Possible per pulmonary. Cont Micafungin, meropenem, colistin (inh) and linezolid per ID (16) Anemia Assessment & Plan: S/P transfusion 1 unit PRBC (17) Pleural effusion on right Assessment & Plan: S/P Thoracentesis 11/21/16. Assessment/Plan Await placement @ group home acute care [facility] TADEO VERDIN November 26, 2016 18:22
[2016-11-26] MEDS: Miralax 17gm pkt ORAL SCH (20:50)
--- NOTE | 2016-11-26 20:52 | General Progress Note ---
Assessment/Plan Assessment/Plan Assessment - Colon polyps/mass seen on CT - patient has declined GI w/u - COPD - respiratory failure - PNA and lung abscess - s/p trach and PEG - dysphagia - Leukocytosis - h/o OB (+) - Anemia with downward trend - Poor PX Recommendations - transfuse PRN - elevate HOB - vent care - abx - GT care / TF - follow labs Subjective Allergies: Coded Allergies: No Known Allergies (Unverified , 06/17/16) Subjective calm NAD. awake no abd c/o tolerating cycled TF Objective Last 24 Hour Vital Signs Date Time Temp Pulse Resp B/P Pulse Ox O2 Delivery O2 Flow Rate FiO2 11/26/16 20:00 97.7 94 20 117/76 Room Air 11/26/16 20:00 40 11/26/16 19:16 40 11/26/16 19:16 106 16 100 Mechanical Ventilator 40 11/26/16 19:15 106 16 100 Mechanical Ventilator 40 11/26/16 19:13 90 16 40 11/26/16 17:01 93 16 40 11/26/16 16:00 40 11/26/16 15:57 98.3 98 16 95/61 100 Mechanical Ventilator 40 11/26/16 15:54 93 11/26/16 14:57 106 16 100 Mechanical Ventilator 40 11/26/16 14:47 104 16 40 11/26/16 14:47 104 16 100 Mechanical Ventilator 40 11/26/16 14:47 40 11/26/16 12:38 84 16 40 11/26/16 12:00 40 11/26/16 12:00 94 11/26/16 11:34 97.8 89 16 127/75 96 Room Air 11/26/16 10:59 85 16 40 11/26/16 10:07 88 16 100 Mechanical Ventilator 40 11/26/16 09:57 40 11/26/16 09:57 85 16 100 Mechanical Ventilator 40 11/26/16 08:34 95 16 40 11/26/16 08:00 97.8 115 16 100/68 100 Mechanical Ventilator 40 11/26/16 08:00 40 11/26/16 07:56 111 11/26/16 07:11 110 17 100 Mechanical Ventilator 40 11/26/16 06:52 109 17 100 Mechanical Ventilator 40 11/26/16 06:52 40 5/23/17 06:52 109 17 40 11/26/16 05:45 81 18 40 11/26/16 04:00 40 11/26/16 04:00 98.8 90 16 103/63 97 Mechanical Ventilator 40 11/26/16 04:00 117 11/26/16 03:26 75 17 40 11/26/16 01:26 95 16 40 11/26/16 00:57 99.0 114 18 125/83 99 Mechanical Ventilator 40 11/26/16 00:00 102 11/26/16 00:00 40 11/25/16 23:01 111 16 40 11/25/16 20:56 110 16 100 Mechanical Ventilator 40 Intake and Output 11/25/16 11/26/16 19:00 07:00 Intake Total 1400 ml 195 ml Output Total 1200 ml 1400 ml Balance 200 ml -1205 ml Free Water 600 ml IV Total 150 ml Tube Feeding 650 ml 195 ml Output Urine Total 1200 ml 1400 ml # Bowel Movements 1 Laboratory Tests 11/26/16 03:40: White Blood Count 12.6H, Red Blood Count 3.59L, Hemoglobin 10.0L, Hematocrit 31.9L, Mean Corpuscular Volume 89, Mean Corpuscular Hemoglobin 27.9, Mean Corpuscular Hemoglobin Concent 31.5L, Red Cell Distribution Width 17.2H, Platelet Count 200, Mean Platelet Volume 7.2, Neutrophils (%) (Auto) 74.1, Lymphocytes (%) (Auto) 12.5L, Monocytes (%) (Auto) 11.7H, Eosinophils (%) (Auto ) 0.7, Basophils (%) (Auto) 1.0, Sodium Level 138, Potassium Level 4.3, Chloride Level 96L, Carbon Dioxide Level 36H, Anion Gap 6, Blood Urea Nitrogen 9 , Creatinine 0.5L, Estimat Glomerular Filtration Rate > 60, Glucose Level 99, Calcium Level 8.2L, Total Bilirubin 0.3, Aspartate Amino Transf (AST/SGOT) 33, Alanine Aminotransferase (ALT/SGPT) 20, Alkaline Phosphatase 195H, Pro-B-Type Natriuretic Peptide 1224H, Total Protein 6.2L, Albumin 1.5L, Globulin 4.7, Albumin/Globulin Ratio 0.3L Height (Feet): 6 Height (Inches): 2.00 Weight (Pounds): 126 Objective Elderly AA man NCAT (+) trach Coarse BS RRR soft NT abdomen, (+) GT poorly responsive ROSEMARY BURROUGHS November 26, 2016 20:52
--- NOTE | 2016-11-26 23:34 | Pulmonology Progress Note ---
Assessment/Plan Problems: (1) Severe sepsis (2) Abdominal distention (3) Respiratory failure (4) COPD exacerbation (5) Emphysema of lung (6) Colonic mass Assessment/Plan Respiratory: adjust tidal volume, monitor respiratory rate, adjust FIO2 Cardiac: continue pressors, stop pressors Renal: F/U I&O, keep IV fluid Infectious Disease: check cultures, continue antibiotics Gastrointestinal: continue feedings/current rate, hold feedings Endocrine: monitor blood sugar, check TSH, start insulin drip Hematologic: monitor H/H, transfuse if hgb<8.5 Neurologic: PRN Morphine, keep patient comfortable Affect: PRN ativan Prophylaxis: Protonix Notes Reviewed: paint stripper, cardio, renal 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, case liner Subjective ROS Limited/Unobtainable: No Interval Events: comfortable Allergies: Coded Allergies: No Known Allergies (Unverified , 06/17/16) Objective Last 24 Hour Vital Signs Date Time Temp Pulse Resp B/P Pulse Ox O2 Delivery O2 Flow Rate FiO2 11/26/16 23:11 89 16 40 11/26/16 21:12 107 17 100 Mechanical Ventilator 40 11/26/16 21:12 40 11/26/16 21:12 107 16 100 Mechanical Ventilator 40 11/26/16 21:07 98 16 40 11/26/16 20:00 97.7 94 20 117/76 Room Air 11/26/16 20:00 40 11/26/16 19:16 40 11/26/16 19:16 106 16 100 Mechanical Ventilator 40 11/26/16 19:15 106 16 100 Mechanical Ventilator 40 11/26/16 19:13 90 16 40 11/26/16 17:01 93 16 40 11/26/16 16:00 40 11/26/16 15:57 98.3 98 16 95/61 100 Mechanical Ventilator 40 11/26/16 15:54 93 11/26/16 14:57 106 16 100 Mechanical Ventilator 40 11/26/16 14:47 104 16 40 11/26/16 14:47 104 16 100 Mechanical Ventilator 40 11/26/16 14:47 40 11/26/16 12:38 84 16 40 11/26/16 12:00 40 11/26/16 12:00 94 11/26/16 11:34 97.8 89 16 127/75 96 Room Air 11/26/16 10:59 85 16 40 11/26/16 10:07 88 16 100 Mechanical Ventilator 40 11/26/16 09:57 40 11/26/16 09:57 85 16 100 Mechanical Ventilator 40 11/26/16 08:34 95 16 40 11/26/16 08:00 97.8 115 16 100/68 100 Mechanical Ventilator 40 11/26/16 08:00 40 11/26/16 07:56 111 11/26/16 07:11 110 17 100 Mechanical Ventilator 40 11/26/16 06:52 109 17 100 Mechanical Ventilator 40 11/26/16 06:52 40 11/26/16 06:52 109 17 40 11/26/16 05:45 81 18 40 11/26/16 04:00 40 11/26/16 04:00 98.8 90 16 103/63 97 Mechanical Ventilator 40 11/26/16 04:00 117 11/26/16 03:26 75 17 40 11/26/16 01:26 95 16 40 11/26/16 00:57 99.0 114 18 125/83 99 Mechanical Ventilator 40 11/26/16 00:00 102 11/26/16 00:00 40 Intake and Output 11/25/16 11/26/16 19:00 07:00 Intake Total 1400 ml 195 ml Output Total 1200 ml 1400 ml Balance 200 ml -1205 ml Free Water 600 ml IV Total 150 ml Tube Feeding 650 ml 195 ml Output Urine Total 1200 ml 1400 ml # Bowel Movements 1 Objective Status: awake HEENT: atraumatic, normocephalic Lungs: clear, decreased breath sounds Heart: HR/BP stable Abdomen: soft, non-tender Extremities: no C/C/E, edema Laboratory Tests 11/26/16 03:40: White Blood Count 12.6H, Red Blood Count 3.59L, Hemoglobin 10.0L, Hematocrit 31.9L, Mean Corpuscular Volume 89, Mean Corpuscular Hemoglobin 27.9, Mean Corpuscular Hemoglobin Concent 31.5L, Red Cell Distribution Width 17.2H, Platelet Count 200, Mean Platelet Volume 7.2, Neutrophils (%) (Auto) 74.1, Lymphocytes (%) (Auto) 12.5L, Monocytes (%) (Auto) 11.7H, Eosinophils (%) (Auto ) 0.7, Basophils (%) (Auto) 1.0, Sodium Level 138, Potassium Level 4.3, Chloride Level 96L, Carbon Dioxide Level 36H, Anion Gap 6, Blood Urea Nitrogen 9 , Creatinine 0.5L, Estimat Glomerular Filtration Rate > 60, Glucose Level 99, Calcium Level 8.2L, Total Bilirubin 0.3, Aspartate Amino Transf (AST/SGOT) 33, Alanine Aminotransferase (ALT/SGPT) 20, Alkaline Phosphatase 195H, Pro-B-Type Natriuretic Peptide 1224H, Total Protein 6.2L, Albumin 1.5L, Globulin 4.7, Albumin/Globulin Ratio 0.3L Current Medications Medications (Trade) Dose Ordered Sig/Shraddha Route PRN Reason Start Time Stop Time Status Last Admin Dose Admin Acetaminophen (Tylenol) 650 mg Q4H PRN ORAL fever>100.5 11/02/16 17:00 12/02/16 16:59 11/22/16 06:12 Acetaminophen 650 mg 650 mg Q4H PRN GT headache 11/03/16 08:00 12/03/16 07:59 11/26/16 09:01 Albuterol/ Ipratropium (DuoNeb 0.5-3(2.5)mg/3ml) 3 ml Q4H PRN HHN Shortness of Breath 11/24/16 08:15 11/29/16 08:14 Chlorhexidine Gluconate (Mariluz-Hex 2%) 1 applic DAILY TOPIC 11/23/16 09:00 12/23/16 08:59 11/26/16 12:30 Colistimethate Sodium 150 mg 150 mg Q12HR@10,22 INH 11/09/16 22:00 11/29/16 21:59 11/26/16 21:08 Dextrose (Dextrose 50%) STAT PRN IV Hypoglycemia 11/02/16 17:00 12/02/16 16:59 Insulin Aspart (NovoLOG) start when feeding started Q6HR SUBQ 11/02/16 18:00 12/02/16 17:59 11/26/16 18:33 Lansoprazole (Prevacid) 30 mg DAILY GT 10/31/16 09:00 11/30/16 08:59 11/26/16 09:00 Levalbuterol HCl (Xopenex) 1.25 mg Q4H PRN HHN Shortness of Breath 11/23/16 01:45 11/28/16 01:44 11/26/16 19:14 Levofloxacin (Levaquin 750mg/ D5W) 150 ml @ 100 mls/hr Q24H IVPB 11/11/16 14:30 12/22/16 14:29 11/26/16 14:44 Metoclopramide HCl (Reglan) 10 mg TID GT 11/24/16 09:00 12/24/16 08:59 11/26/16 18:25 Ondansetron HCl (Zofran) 4 mg Q6H PRN IVP Nausea & Vomiting 11/02/16 17:00 12/02/16 16:59 Polyethylene Glycol (Miralax) 17 gm BEDTIME ORAL 11/24/16 21:00 12/24/16 20:59 Sodium Chloride (NS) 500 ml @ 999 mls/hr PRN PRN IVPB For hypotension 11/09/16 17:15 12/09/16 17:14 11/10/16 22:00 REN WRIGHT November 26, 2016 23:34
[2016-11-27] MEDS: Levalbuterol Inh UD 1.25mg/0.5ml HHN PRN ×3 (03:50→15:35)
[2016-11-27 04:00] VITALS: BP 115/70
[2016-11-27 05:28] LABS: BASOPHILS % (AUTO) 0.7 % (0.0-2.0); EOSINOPHILS % (AUTO) 0.8 % (0.0-3.0); LYMPHOCYTES % (AUTO) 9.7 % (20.0-45.0); MEAN CORPUSCULAR HEMOGLOBIN 26.9 PG (27.0-31.0); MEAN CORPUSCULAR HGB CONC 30.5 G/DL (32.0-36.0); MEAN CORPUSCULAR VOLUME 88 FL (80-99); MEAN PLATELET VOLUME 7.8 FL (6.5-10.1); MONOCYTES % (AUTO) 9.5 % (1.0-10.0); NEUTROPHILS % (AUTO) 79.3 % (45.0-75.0); PLATELET COUNT 169 K/UL (150-450); RED CELL DISTRIBUTION WIDTH 17.2 % (11.6-14.8); WHITE BLOOD COUNT 10.8 K/UL (4.8-10.8)
[2016-11-27] MEDS: NovoLOG Insulin Flexpen SUBQ SCH ×4 (06:00→23:47)
[2016-11-27 06:05] LABS: ANION GAP 6 (5-15); CALCIUM 7.9 mg/dL (8.6-10.2); CARBON DIOXIDE 37 mEQ/L (20-30); CHLORIDE 99 mEQ/L (98-107); CREATININE 0.4 mg/dL (0.7-1.2); GLOMERULAR FILTRATION RATE > 60 mL/min (>60); HEMOLYSIS 0; POTASSIUM 4.4 mEQ/L (3.4-4.9); SODIUM 142 mEQ/L (135-145)
[2016-11-27 08:00] VITALS: BP 133/90
[2016-11-27] MEDS: Metoclopramide 10mg/10ml Liq GT SCH ×3 (09:00→17:58)
[2016-11-27] MEDS: Colistin for inhalation INH SCH ×2 (10:11→21:40)
[2016-11-27] MEDS ORDERED: NS 275ml ONE (10:37)
[2016-11-27] MEDS ORDERED: Tubing IV Secondary IV ONE (10:37)
[2016-11-27 12:00] VITALS: BP 88/55
--- NOTE | 2016-11-27 12:14 | Pulmonology Progress Note ---
Assessment/Plan Problems: (1) Severe sepsis (2) Abdominal distention (3) Respiratory failure (4) COPD exacerbation (5) Emphysema of lung (6) Colonic mass Assessment/Plan Respiratory: monitor respiratory rate, adjust FIO2 Cardiac: continue pressors Renal: F/U I&O, keep IV fluid Infectious Disease: continue antibiotics Gastrointestinal: hold feedings Endocrine: check TSH, continue sliding scale insulin Hematologic: monitor H/H, transfuse if hgb<8.5 Neurologic: PRN Morphine, keep patient comfortable Prophylaxis: Protonix Disposition: keep in ICU Notes Reviewed: cardio, renal 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, consultants, behavioral health case manager Subjective ROS Limited/Unobtainable: No Interval Events: comfortable Allergies: Coded Allergies: No Known Allergies (Unverified , 06/17/16) Objective Last 24 Hour Vital Signs Date Time Temp Pulse Resp B/P Pulse Ox O2 Delivery O2 Flow Rate FiO2 11/27/16 11:08 96 16 40 11/27/16 10:22 98 16 100 Mechanical Ventilator 40 11/27/16 10:12 40 11/27/16 10:12 87 16 100 Mechanical Ventilator 40 11/27/16 09:16 87 16 40 11/27/16 08:00 97.8 107 17 133/90 100 Mechanical Ventilator 40 11/27/16 08:00 40 11/27/16 07:55 112 16 100 Mechanical Ventilator 40 11/27/16 07:50 105 11/27/16 07:47 113 18 100 Mechanical Ventilator 40 11/27/16 07:47 40 11/27/16 06:43 113 18 40 11/27/16 05:11 108 16 40 11/27/16 04:00 40 11/27/16 04:00 112 11/27/16 04:00 97.8 94 20 115/70 99 Mechanical Ventilator 11/27/16 03:51 40 11/27/16 03:51 111 16 100 Mechanical Ventilator 40 11/27/16 03:50 114 16 98 Mechanical Ventilator 40 11/27/16 03:20 114 16 40 11/27/16 01:20 99 16 40 11/27/16 00:00 40 11/27/16 00:00 101 11/26/16 23:47 97.9 100 18 114/74 99 Room Air 11/26/16 23:11 89 16 40 11/26/16 21:12 107 17 100 Mechanical Ventilator 40 11/26/16 21:12 40 11/26/16 21:12 107 16 100 Mechanical Ventilator 40 11/26/16 21:07 98 16 40 11/26/16 21:00 92 11/26/16 20:00 97.7 94 20 117/76 Room Air 11/26/16 20:00 40 11/26/16 19:16 40 11/26/16 19:16 106 16 100 Mechanical Ventilator 40 11/26/16 19:15 106 16 100 Mechanical Ventilator 40 11/26/16 19:13 90 16 40 11/26/16 17:01 93 16 40 11/26/16 16:00 40 11/26/16 15:57 98.3 98 16 95/61 100 Mechanical Ventilator 40 11/26/16 15:54 93 11/26/16 14:57 106 16 100 Mechanical Ventilator 40 11/26/16 14:47 104 16 40 11/26/16 14:47 104 16 100 Mechanical Ventilator 40 11/26/16 14:47 40 11/26/16 12:38 84 16 40 Intake and Output 11/26/16 11/27/16 19:00 07:00 Intake Total 1165 ml 645 ml Output Total 1000 ml 225 ml Balance 165 ml 420 ml Free Water 450 ml 450 ml Tube Feeding 715 ml 195 ml Output Urine Total 1000 ml 225 ml # Voids 1 # Bowel Movements 3 2 Objective Status: awake HEENT: atraumatic, normocephalic Lungs: clear, decreased breath sounds Heart: HR/BP stable Abdomen: soft, non-tender Extremities: no C/C/E, edema Laboratory Tests 11/27/16 03:30: White Blood Count 10.8, Red Blood Count 3.40L, Hemoglobin 9.2L, Hematocrit 30.0L , Mean Corpuscular Volume 88, Mean Corpuscular Hemoglobin 26.9L, Mean Corpuscular Hemoglobin Concent 30.5L, Red Cell Distribution Width 17.2H, Platelet Count 169, Mean Platelet Volume 7.8, Neutrophils (%) (Auto) 79.3H, Lymphocytes (%) (Auto) 9.7L, Monocytes (%) (Auto) 9.5, Eosinophils (%) (Auto) 0.8, Basophils (%) (Auto) 0.7, Sodium Level 142, Potassium Level 4.4, Chloride Level 99, Carbon Dioxide Level 37H, Anion Gap 6, Blood Urea Nitrogen 9, Creatinine 0.4L, Estimat Glomerular Filtration Rate > 60, Glucose Level 76, Calcium Level 7.9L Current Medications Medications (Trade) Dose Ordered Sig/Shraddha Route PRN Reason Start Time Stop Time Status Last Admin Dose Admin Acetaminophen (Tylenol) 650 mg Q4H PRN ORAL fever>100.5 11/02/16 17:00 12/02/16 16:59 11/22/16 06:12 Acetaminophen 650 mg 650 mg Q4H PRN GT headache 11/03/16 08:00 12/03/16 07:59 11/26/16 09:01 Albuterol/ Ipratropium (DuoNeb 0.5-3(2.5)mg/3ml) 3 ml Q4H PRN HHN Shortness of Breath 11/24/16 08:15 11/29/16 08:14 Chlorhexidine Gluconate (Mariluz-Hex 2%) 1 applic DAILY TOPIC 11/23/16 09:00 12/23/16 08:59 11/26/16 12:30 Colistimethate Sodium 150 mg 150 mg Q12HR@10,22 INH 11/09/16 22:00 11/29/16 21:59 11/27/16 10:11 Dextrose (Dextrose 50%) STAT PRN IV Hypoglycemia 11/02/16 17:00 12/02/16 16:59 Insulin Aspart (NovoLOG) start when feeding started Q6HR SUBQ 11/02/16 18:00 12/02/16 17:59 11/26/16 23:40 Lansoprazole (Prevacid) 30 mg DAILY GT 10/31/16 09:00 11/30/16 08:59 11/27/16 09:00 Levalbuterol HCl (Xopenex) 1.25 mg Q4H PRN HHN Shortness of Breath 11/23/16 01:45 11/28/16 01:44 11/27/16 07:47 Levofloxacin (Levaquin 750mg/ D5W) 150 ml @ 100 mls/hr Q24H IVPB 11/11/16 14:30 12/22/16 14:29 11/26/16 14:44 Metoclopramide HCl (Reglan) 10 mg TID GT 11/24/16 09:00 12/24/16 08:59 11/27/16 09:00 Ondansetron HCl (Zofran) 4 mg Q6H PRN IVP Nausea & Vomiting 11/02/16 17:00 12/02/16 16:59 Polyethylene Glycol (Miralax) 17 gm BEDTIME ORAL 11/24/16 21:00 12/24/16 20:59 Sodium Chloride (NS) 500 ml @ 999 mls/hr PRN PRN IVPB For hypotension 11/09/16 17:15 12/09/16 17:14 11/10/16 22:00 REN WRIGHT November 27, 2016 12:14
--- NOTE | 2016-11-27 13:16 | Internal Med Progress Note ---
Subjective Date of Service: November 27, 2016 Physician Name Verdin,Tadeo Attending Physician Steve Rader MD Current Medications Medications (Trade) Dose Ordered Sig/Shraddha Route PRN Reason Start Time Stop Time Status Last Admin Dose Admin Acetaminophen (Tylenol) 650 mg Q4H PRN ORAL fever>100.5 11/02/16 17:00 12/02/16 16:59 11/22/16 06:12 Acetaminophen 650 mg 650 mg Q4H PRN GT headache 11/03/16 08:00 12/03/16 07:59 11/26/16 09:01 Albuterol/ Ipratropium (DuoNeb 0.5-3(2.5)mg/3ml) 3 ml Q4H PRN HHN Shortness of Breath 11/24/16 08:15 11/29/16 08:14 Chlorhexidine Gluconate (Mariluz-Hex 2%) 1 applic DAILY TOPIC 11/23/16 09:00 12/23/16 08:59 11/26/16 12:30 Colistimethate Sodium 150 mg 150 mg Q12HR@10,22 INH 11/09/16 22:00 11/29/16 21:59 11/27/16 10:11 Dextrose (Dextrose 50%) STAT PRN IV Hypoglycemia 11/02/16 17:00 12/02/16 16:59 Insulin Aspart (NovoLOG) start when feeding started Q6HR SUBQ 11/02/16 18:00 12/02/16 17:59 11/26/16 23:40 Lansoprazole (Prevacid) 30 mg DAILY GT 10/31/16 09:00 11/30/16 08:59 11/27/16 09:00 Levalbuterol HCl (Xopenex) 1.25 mg Q4H PRN HHN Shortness of Breath 11/23/16 01:45 11/28/16 01:44 11/27/16 07:47 Levofloxacin (Levaquin 750mg/ D5W) 150 ml @ 100 mls/hr Q24H IVPB 11/11/16 14:30 12/22/16 14:29 11/26/16 14:44 Metoclopramide HCl (Reglan) 10 mg TID GT 11/24/16 09:00 12/24/16 08:59 11/27/16 09:00 Ondansetron HCl (Zofran) 4 mg Q6H PRN IVP Nausea & Vomiting 11/02/16 17:00 12/02/16 16:59 Polyethylene Glycol (Miralax) 17 gm BEDTIME ORAL 11/24/16 21:00 12/24/16 20:59 Sodium Chloride (NS) 500 ml @ 999 mls/hr PRN PRN IVPB For hypotension 11/09/16 17:15 12/09/16 17:14 11/10/16 22:00 Allergies: Coded Allergies: No Known Allergies (Unverified , 06/17/16) ROS Limited/Unobtainable: No Constitutional: Reports: no symptoms HEENT: Reports: no symptoms Cardiovascular: Reports: no symptoms Respiratory: Reports: no symptoms Gastrointestinal/Abdominal: Reports: no symptoms Genitourinary: Reports: no symptoms Neurologic/Psychiatric: Reports: no symptoms Subjective 66 YO M admitted with respiratory failure. JORDAN. Trach with mech vent. Cover for Int Med-Dr Rader. S/P thoracentesis 11/21/16 Objective Last Vital Signs Date Time Temp Pulse Resp B/P Pulse Ox O2 Delivery O2 Flow Rate FiO2 11/27/16 12:00 97.6 92 19 88/55 100 Mechanical Ventilator 40 11/24/16 23:40 40.0 Laboratory Tests Test 11/27/16 03:30 White Blood Count 10.8 K/UL (4.8-10.8) Red Blood Count 3.40 M/UL (4.70-6.10) L Hemoglobin 9.2 G/DL (14.2-18.0) L Hematocrit 30.0 % (42.0-52.0) L Mean Corpuscular Volume 88 FL (80-99) Mean Corpuscular Hemoglobin 26.9 PG (27.0-31.0) L Mean Corpuscular Hemoglobin Concent 30.5 G/DL (32.0-36.0) L Red Cell Distribution Width 17.2 % (11.6-14.8) H Platelet Count 169 K/UL (150-450) Mean Platelet Volume 7.8 FL (6.5-10.1) Neutrophils (%) (Auto) 79.3 % (45.0-75.0) H Lymphocytes (%) (Auto) 9.7 % (20.0-45.0) L Monocytes (%) (Auto) 9.5 % (1.0-10.0) Eosinophils (%) (Auto) 0.8 % (0.0-3.0) Basophils (%) (Auto) 0.7 % (0.0-2.0) Sodium Level 142 mEQ/L (135-145) Potassium Level 4.4 mEQ/L (3.4-4.9) Chloride Level 99 mEQ/L (98-107) Carbon Dioxide Level 37 mEQ/L (20-30) H Anion Gap 6 (5-15) Blood Urea Nitrogen 9 mg/dL (7-23) Creatinine 0.4 mg/dL (0.7-1.2) L Estimat Glomerular Filtration Rate > 60 mL/min (>60) Glucose Level 76 mg/dL (74-106) Calcium Level 7.9 mg/dL (8.6-10.2) L Intake and Output 11/26/16 11/27/16 19:00 07:00 Intake Total 1165 ml 645 ml Output Total 1000 ml 225 ml Balance 165 ml 420 ml Free Water 450 ml 450 ml Tube Feeding 715 ml 195 ml Output Urine Total 1000 ml 225 ml # Voids 1 # Bowel Movements 3 2 Objective General Appearance: moderate distress, thin EENT: PERRL/EOMI, normal ENT inspection Neck: non-tender, normal alignment, supple Cardiovascular: normal peripheral pulses, normal rate, regular rhythm, no gallop/murmur, no JVD Respiratory/Chest: Mech vent; trach; respiratory distress, crackles/rales, rhonchi - bilaterally, expiratory wheezing Abdomen: non tender, soft, no organomegaly, no mass, decreased bowel sounds Extremities: normal range of motion Skin: normal pigmentation, warm/dry Assessment/Plan Problem List: (1) Lung nodule (2) DVT (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 (3) Acute respiratory failure Assessment & Plan: S/P tracheostomy 10/03/16. Cont vent per pulm (4) COPD exacerbation Assessment & Plan: Continue duoneb. Continue vent per pulmonary. (5) Pneumonia Assessment & Plan: Pseudamonas. New RLL consolidation. Continue colistin (inh ) and levaquin; discontinue micafungin, linezolid, and meropenem per ID (6) Leukocytosis Assessment & Plan: Worsening. Await Culture results. D/C meropenem and micafungin; continue levaquin and colistin (inh) per ID (7) Dysphagia Assessment & Plan: See GI consult- S/P PEG 10/04/16. (8) Hypoglycemia Assessment & Plan: D50 prn; decrease insulin sliding scale. (9) Dysuria Assessment & Plan: D/C garcia cath. (10) Severe sepsis Assessment & Plan: Blood cultures X2. Cont meropenem, colistin Inh, levaquin, micafungin and linezolid per ID. (11) Hypotension Assessment & Plan: ICU status for pressors, (12) Gastric mass (13) Mass of colon Assessment & Plan: Cecum and colon masses. See GI note. (14) UTI (urinary tract infection) due to Enterococcus Assessment & Plan: Love. On micafungin. See ID note. (15) Empyema Assessment & Plan: Possible per pulmonary. Cont Micafungin, meropenem, colistin (inh) and linezolid per ID (16) Anemia Assessment & Plan: S/P transfusion 1 unit PRBC (17) Pleural effusion on right Assessment & Plan: S/P Thoracentesis 11/21/16. Status: stable Assessment/Plan Await placement @ longterm acute care fac TADEO VERDIN November 27, 2016 13:16
[2016-11-27] MEDS: Dyna-Hex 2% Top Sol 8oz TOPIC SCH (13:39)
[2016-11-27 14:30] VITALS: BP 124/76
--- NOTE | 2016-11-27 15:03 | Cardiac Electrophysiology PN ---
Assessment/Plan Assessment/Plan 1. Sinus tachycardia due to sepsis. No SVT or fib. HR better. 2. Hypotension .Resolved.after abx and PRBC 11/18/16. 3. Severe COPD and pulmonary hypertension 4. Ventilator-dependant respiratory failure, status post tracheostomy. 5. Dysphagia, status post percutaneous endoscopic gastrostomy placement. 6. Sepsis due to MDR ACB and PSA , on intravenous antibiotics per ID. 7. 5-6 cm cavitary focus suspicious for lung abscess in the right upper lobe. 8. Colonic mass and anemia.S/P transfusion. 9. Generalized edema. Upper extremity doppler No DVT 10. Pleural effusion, SP thoracentesis with no evidence of empyema 7 DW RN Subjective Subjective On JORDAN on Vent via tracheostomy.Comfortable with no events overnight.Awaiting placement. At times in sinus tach. Objective Last 24 Hour Vital Signs Date Time Temp Pulse Resp B/P Pulse Ox O2 Delivery O2 Flow Rate FiO2 11/27/16 14:56 94 16 40 11/27/16 13:21 101 16 40 11/27/16 12:00 97.6 92 19 88/55 100 Mechanical Ventilator 40 11/27/16 12:00 40 11/27/16 12:00 96 11/27/16 11:08 96 16 40 11/27/16 10:22 98 16 100 Mechanical Ventilator 40 11/27/16 10:12 40 11/27/16 10:12 87 16 100 Mechanical Ventilator 40 11/27/16 09:16 87 16 40 11/27/16 08:00 97.8 107 17 133/90 100 Mechanical Ventilator 40 11/27/16 08:00 40 11/27/16 07:55 112 16 100 Mechanical Ventilator 40 11/27/16 07:50 105 11/27/16 07:47 113 18 100 Mechanical Ventilator 40 11/27/16 07:47 40 11/27/16 06:43 113 18 40 11/27/16 05:11 108 16 40 11/27/16 04:00 40 11/27/16 04:00 112 11/27/16 04:00 97.8 94 20 115/70 99 Mechanical Ventilator 11/27/16 03:51 40 11/27/16 03:51 111 16 100 Mechanical Ventilator 40 11/27/16 03:50 114 16 98 Mechanical Ventilator 40 11/27/16 03:20 114 16 40 11/27/16 01:20 99 16 40 11/27/16 00:00 40 11/27/16 00:00 101 11/26/16 23:47 97.9 100 18 114/74 99 Room Air 11/26/16 23:11 89 16 40 11/26/16 21:12 107 17 100 Mechanical Ventilator 40 11/26/16 21:12 40 11/26/16 21:12 107 16 100 Mechanical Ventilator 40 11/26/16 21:07 98 16 40 11/26/16 21:00 92 11/26/16 20:00 97.7 94 20 117/76 Room Air 11/26/16 20:00 40 11/26/16 19:16 40 11/26/16 19:16 106 16 100 Mechanical Ventilator 40 11/26/16 19:15 106 16 100 Mechanical Ventilator 40 11/26/16 19:13 90 16 40 11/26/16 17:01 93 16 40 11/26/16 16:00 40 11/26/16 15:57 98.3 98 16 95/61 100 Mechanical Ventilator 40 11/26/16 15:54 93 Intake and Output 11/26/16 11/27/16 19:00 07:00 Intake Total 1165 ml 645 ml Output Total 1000 ml 225 ml Balance 165 ml 420 ml Free Water 450 ml 450 ml Tube Feeding 715 ml 195 ml Output Urine Total 1000 ml 225 ml # Voids 1 # Bowel Movements 3 2 Laboratory Tests Test 11/27/16 03:30 White Blood Count 10.8 K/UL (4.8-10.8) Red Blood Count 3.40 M/UL (4.70-6.10) L Hemoglobin 9.2 G/DL (14.2-18.0) L Hematocrit 30.0 % (42.0-52.0) L Mean Corpuscular Volume 88 FL (80-99) Mean Corpuscular Hemoglobin 26.9 PG (27.0-31.0) L Mean Corpuscular Hemoglobin Concent 30.5 G/DL (32.0-36.0) L Red Cell Distribution Width 17.2 % (11.6-14.8) H Platelet Count 169 K/UL (150-450) Mean Platelet Volume 7.8 FL (6.5-10.1) Neutrophils (%) (Auto) 79.3 % (45.0-75.0) H Lymphocytes (%) (Auto) 9.7 % (20.0-45.0) L Monocytes (%) (Auto) 9.5 % (1.0-10.0) Eosinophils (%) (Auto) 0.8 % (0.0-3.0) Basophils (%) (Auto) 0.7 % (0.0-2.0) Sodium Level 142 mEQ/L (135-145) Potassium Level 4.4 mEQ/L (3.4-4.9) Chloride Level 99 mEQ/L (98-107) Carbon Dioxide Level 37 mEQ/L (20-30) H Anion Gap 6 (5-15) Blood Urea Nitrogen 9 mg/dL (7-23) Creatinine 0.4 mg/dL (0.7-1.2) L Estimat Glomerular Filtration Rate > 60 mL/min (>60) Glucose Level 76 mg/dL (74-106) Calcium Level 7.9 mg/dL (8.6-10.2) L Objective HEAD AND NECK: No JVD, tracheostomy intact. LUNGS: Clear bilaterally. CARDIOVASCULAR: Tachycardic S1 and S2 with no gallop or murmur. ABDOMEN: Soft. G-tube intact. EXTREMITIES: Anasarca.PICC line in place left arm. OSWALD HILLS November 27, 2016 15:03
[2016-11-27 16:00] VITALS: BP 98/59
[2016-11-27] MEDS: Acetaminophen 650mg/20.3ml GT PRN (18:04)
[2016-11-27 20:00] VITALS: BP 113/63
[2016-11-27] MEDS: Miralax 17gm pkt ORAL SCH (21:00)
--- NOTE | 2016-11-27 22:33 | General Progress Note ---
Assessment/Plan Assessment/Plan Assessment - Colon polyps/mass seen on CT - patient has declined GI w/u - COPD - respiratory failure - PNA and lung abscess - s/p trach and PEG - dysphagia - Leukocytosis - h/o OB (+) - Anemia with downward trend - Poor PX Recommendations - transfuse PRN - elevate HOB - vent care - abx - GT care / TF - follow labs Subjective Allergies: Coded Allergies: No Known Allergies (Unverified , 06/17/16) Subjective calm NAD. awake no abd c/o tolerating cycled TF Objective Last 24 Hour Vital Signs Date Time Temp Pulse Resp B/P Pulse Ox O2 Delivery O2 Flow Rate FiO2 11/27/16 21:43 103 20 100 Mechanical Ventilator 11/27/16 21:41 104 16 100 Mechanical Ventilator 40 11/27/16 21:30 105 16 40 11/27/16 20:00 97.6 109 18 113/63 100 Mechanical Ventilator 11/27/16 19:30 108 17 40 11/27/16 18:33 97.8 11/27/16 16:38 113 16 40 11/27/16 16:00 98 11/27/16 16:00 97.8 104 18 98/59 100 Mechanical Ventilator 40 11/27/16 16:00 40 11/27/16 15:35 108 16 100 Mechanical Ventilator 40 11/27/16 15:35 40 11/27/16 14:56 94 16 40 11/27/16 14:30 103 18 124/76 100 Mechanical Ventilator 40 11/27/16 13:21 101 16 40 11/27/16 12:00 97.6 92 19 88/55 100 Mechanical Ventilator 40 11/27/16 12:00 40 11/27/16 12:00 96 11/27/16 11:08 96 16 40 11/27/16 10:22 98 16 100 Mechanical Ventilator 40 11/27/16 10:12 40 11/27/16 10:12 87 16 100 Mechanical Ventilator 40 11/27/16 09:16 87 16 40 11/27/16 08:00 97.8 107 17 133/90 100 Mechanical Ventilator 40 11/27/16 08:00 40 11/27/16 07:55 112 16 100 Mechanical Ventilator 40 11/27/16 07:50 105 11/27/16 07:47 113 18 100 Mechanical Ventilator 40 11/27/16 07:47 40 11/27/16 06:43 113 18 40 11/27/16 05:11 108 16 40 11/27/16 04:00 40 11/27/16 04:00 112 11/27/16 04:00 97.8 94 20 115/70 99 Mechanical Ventilator 11/27/16 03:51 40 11/27/16 03:51 111 16 100 Mechanical Ventilator 40 11/27/16 03:50 114 16 98 Mechanical Ventilator 40 11/27/16 03:20 114 16 40 11/27/16 01:20 99 16 40 11/27/16 00:00 40 11/27/16 00:00 101 11/26/16 23:47 97.9 100 18 114/74 99 Room Air 11/26/16 23:11 89 16 40 Intake and Output 11/26/16 11/27/16 19:00 07:00 Intake Total 1165 ml 645 ml Output Total 1000 ml 225 ml Balance 165 ml 420 ml Free Water 450 ml 450 ml Tube Feeding 715 ml 195 ml Output Urine Total 1000 ml 225 ml # Voids 1 # Bowel Movements 3 2 Laboratory Tests 11/27/16 03:30: White Blood Count 10.8, Red Blood Count 3.40L, Hemoglobin 9.2L, Hematocrit 30.0L , Mean Corpuscular Volume 88, Mean Corpuscular Hemoglobin 26.9L, Mean Corpuscular Hemoglobin Concent 30.5L, Red Cell Distribution Width 17.2H, Platelet Count 169, Mean Platelet Volume 7.8, Neutrophils (%) (Auto) 79.3H, Lymphocytes (%) (Auto) 9.7L, Monocytes (%) (Auto) 9.5, Eosinophils (%) (Auto) 0.8, Basophils (%) (Auto) 0.7, Sodium Level 142, Potassium Level 4.4, Chloride Level 99, Carbon Dioxide Level 37H, Anion Gap 6, Blood Urea Nitrogen 9, Creatinine 0.4L, Estimat Glomerular Filtration Rate > 60, Glucose Level 76, Calcium Level 7.9L Height (Feet): 6 Height (Inches): 2.00 Weight (Pounds): 126 Objective Elderly AA man NCAT (+) trach Coarse BS RRR soft NT abdomen, (+) GT awake ROSEMARY BURROUGHS November 27, 2016 22:33
[2016-11-28] VITALS: BP 100/68
[2016-11-28 04:00] VITALS: BP 112/73
[2016-11-28 05:27] LABS: BASOPHILS % (AUTO) 0.8 % (0.0-2.0); EOSINOPHILS % (AUTO) 1.2 % (0.0-3.0); LYMPHOCYTES % (AUTO) 7.6 % (20.0-45.0); MEAN CORPUSCULAR HEMOGLOBIN 27.7 PG (27.0-31.0); MEAN CORPUSCULAR HGB CONC 31.6 G/DL (32.0-36.0); MEAN CORPUSCULAR VOLUME 88 FL (80-99); MEAN PLATELET VOLUME 7.3 FL (6.5-10.1); MONOCYTES % (AUTO) 11.9 % (1.0-10.0); NEUTROPHILS % (AUTO) 78.5 % (45.0-75.0); PLATELET COUNT 163 K/UL (150-450); RED BLOOD COUNT 3.16 M/UL (4.70-6.10); RED CELL DISTRIBUTION WIDTH 16.8 % (11.6-14.8); WHITE BLOOD COUNT 9.9 K/UL (4.8-10.8)
[2016-11-28 05:45] LABS: ALANINE AMINOTRANSFERASE 14 U/L (3-41); ALBUMIN/GLOBULIN RATIO 0.3 (1.0-2.7); ANION GAP 5 (5-15); ASPARTATE AMINO TRANSFERASE 20 U/L (5-40); CALCIUM 7.8 mg/dL (8.6-10.2); CARBON DIOXIDE 37 mEQ/L (20-30); CHLORIDE 94 mEQ/L (98-107); CREATININE 0.4 mg/dL (0.7-1.2); GLOMERULAR FILTRATION RATE > 60 mL/min (>60); HEMOLYSIS 1; MAGNESIUM 1.7 mg/dL (1.7-2.5); PHOSPHORUS 3.6 mg/dL (2.5-4.8); POTASSIUM 4.3 mEQ/L (3.4-4.9); SODIUM 136 mEQ/L (135-145); TOTAL PROTEIN 5.7 g/dL (6.6-8.7)
[2016-11-28] MEDS: NovoLOG Insulin Flexpen SUBQ SCH ×4 (06:00→23:07)
[2016-11-28 08:00] VITALS: BP 121/70
[2016-11-28] MEDS: Metoclopramide 10mg/10ml Liq GT SCH ×3 (08:53→17:39)
[2016-11-28] MEDS: Dyna-Hex 2% Top Sol 8oz TOPIC SCH (08:53)
[2016-11-28] MEDS: Colistin for inhalation INH SCH ×2 (09:19→19:46)
--- NOTE | 2016-11-28 09:44 | Infectious Diseases Prog Note ---
Assessment/Plan Assessment/Plan Plan ASSESSMENT: 66 y/o male with: // VAP / RUL Pna , as per pul no evidence of abscess - SCx: MDR ACB and PSA , repeat Scx: PSA - cxray 11/26 : Dense consolidation throughout the right lung persists - SP thoracentesis - no evide of empyema 11/21 - CT 11/14 :Extensive pneumonia involving both lungs as described above. 5-6 cm cavitary focus suspicious for lung abscess in the right upper lobe. // Probable UTI : UCx yeast and VRE b SP Rx // Leukocytosis - mild ( DVT, probable CA contributing, SP steroids ) // Hypotension SP // Febrile low grade SP // HIV and Hep B/C : neg // thoracentesis 11/21 // Colon mass ro cancer , GI is following CT: Large cecal mass and other polypoid colonic masses, detailed previously , again demonstrated // SP PEG 10/04 // Chronic VDRF SP trach // Severe pulmonary HTN / grade I diastolic dysfunction / mod TR // Pulmonary nodules // Chronic RLE DVT // Tobacco abuse // [facility] resident // Negative MRSA, VRE screens // NKDA // Full Code PLAN: - cont Levaquin d# 17 / , Colistin INH d# 20 / ( SP Merrem, Zyvox and Mycamine d# 14 ) ( 11/09 SP Vanco d# 6 / 10 and oral Vanco d# 5 ) ( 10/17 SP Ceftazidime d# 14 ) ( 10/13 SP Jairon nebs d# 14 ) ( 10/11 SP Flagyl d# 10 ) ( 10/04 SP oral Vanco d# 3 ) ( 09/24 SP amikacin, invanz d# 5 / 5 ) ( 09/21 SP IV vancomycin d# 2 ) - monitor CBC, temperatures - monitor BMP - monitor CXR - vent support, trach care, aspiration precautions Subjective Allergies: Coded Allergies: No Known Allergies (Unverified , 06/17/16) Subjective afebrile , on vent Objective Vital Signs Last 24 Hour Vital Signs Date Time Temp Pulse Resp B/P Pulse Ox O2 Delivery O2 Flow Rate FiO2 11/28/16 09:13 100 18 98 Mechanical Ventilator 11/28/16 09:03 102 23 99 Mechanical Ventilator 40 11/28/16 09:01 102 23 40 11/28/16 08:00 40 11/28/16 08:00 97.8 100 20 121/70 99 Mechanical Ventilator 40 11/28/16 08:00 93 11/28/16 07:28 101 21 40 11/28/16 05:17 106 16 40 11/28/16 04:00 40 11/28/16 04:00 97.9 96 19 112/73 98 Mechanical Ventilator 11/28/16 04:00 105 11/28/16 03:30 104 21 40 11/28/16 01:30 110 20 40 11/28/16 00:00 40 11/28/16 00:00 99 11/28/16 00:00 97.2 85 18 100/68 100 Mechanical Ventilator 11/27/16 23:20 96 17 40 11/27/16 21:43 103 20 100 Mechanical Ventilator 11/27/16 21:41 104 16 100 Mechanical Ventilator 40 11/27/16 21:30 105 16 40 11/27/16 20:00 40 11/27/16 20:00 97.6 109 18 113/63 100 Mechanical Ventilator 11/27/16 20:00 107 11/27/16 19:30 108 17 40 11/27/16 18:33 97.8 11/27/16 16:38 113 16 40 11/27/16 16:00 98 11/27/16 16:00 97.8 104 18 98/59 100 Mechanical Ventilator 40 11/27/16 16:00 40 11/27/16 15:35 108 16 100 Mechanical Ventilator 40 11/27/16 15:35 40 11/27/16 14:56 94 16 40 11/27/16 14:30 103 18 124/76 100 Mechanical Ventilator 40 11/27/16 13:21 101 16 40 11/27/16 12:00 97.6 92 19 88/55 100 Mechanical Ventilator 40 11/27/16 12:00 40 11/27/16 12:00 96 11/27/16 11:08 96 16 40 11/27/16 10:22 98 16 100 Mechanical Ventilator 40 11/27/16 10:12 40 11/27/16 10:12 87 16 100 Mechanical Ventilator 40 Height (Feet): 6 Height (Inches): 2.00 Weight (Pounds): 126 HEENT: anicteric Respiratory/Chest: normal breath sounds Cardiovascular: regularly irregular Abdomen: no organomegaly Laboratory Tests Test 11/28/16 03:40 White Blood Count 9.9 K/UL (4.8-10.8) Red Blood Count 3.16 M/UL (4.70-6.10) L Hemoglobin 8.8 G/DL (14.2-18.0) L Hematocrit 27.8 % (42.0-52.0) L Mean Corpuscular Volume 88 FL (80-99) Mean Corpuscular Hemoglobin 27.7 PG (27.0-31.0) Mean Corpuscular Hemoglobin Concent 31.6 G/DL (32.0-36.0) L Red Cell Distribution Width 16.8 % (11.6-14.8) H Platelet Count 163 K/UL (150-450) Mean Platelet Volume 7.3 FL (6.5-10.1) Neutrophils (%) (Auto) 78.5 % (45.0-75.0) H Lymphocytes (%) (Auto) 7.6 % (20.0-45.0) L Monocytes (%) (Auto) 11.9 % (1.0-10.0) H Eosinophils (%) (Auto) 1.2 % (0.0-3.0) Basophils (%) (Auto) 0.8 % (0.0-2.0) Sodium Level 136 mEQ/L (135-145) Potassium Level 4.3 mEQ/L (3.4-4.9) Chloride Level 94 mEQ/L (98-107) L Carbon Dioxide Level 37 mEQ/L (20-30) H Anion Gap 5 (5-15) Blood Urea Nitrogen 8 mg/dL (7-23) Creatinine 0.4 mg/dL (0.7-1.2) L Estimat Glomerular Filtration Rate > 60 mL/min (>60) Glucose Level 84 mg/dL (74-106) Calcium Level 7.8 mg/dL (8.6-10.2) L Phosphorus Level 3.6 mg/dL (2.5-4.8) Magnesium Level 1.7 mg/dL (1.7-2.5) Total Bilirubin 0.2 mg/dL (0.0-1.2) Aspartate Amino Transf (AST/SGOT) 20 U/L (5-40) Alanine Aminotransferase (ALT/SGPT) 14 U/L (3-41) Alkaline Phosphatase 171 U/L (40-129) H Total Protein 5.7 g/dL (6.6-8.7) L Albumin 1.4 g/dL (3.5-5.2) L Globulin 4.3 g/dL Albumin/Globulin Ratio 0.3 (1.0-2.7) L Current Medications Medications (Trade) Dose Ordered Sig/Shraddha Route PRN Reason Start Time Stop Time Status Last Admin Dose Admin Acetaminophen (Tylenol) 650 mg Q4H PRN ORAL fever>100.5 11/02/16 17:00 12/02/16 16:59 11/22/16 06:12 Acetaminophen 650 mg 650 mg Q4H PRN GT headache 11/03/16 08:00 12/03/16 07:59 11/27/16 18:04 Albuterol/ Ipratropium (DuoNeb 0.5-3(2.5)mg/3ml) 3 ml Q4H PRN HHN Shortness of Breath 11/24/16 08:15 11/29/16 08:14 Chlorhexidine Gluconate (Mariluz-Hex 2%) 1 applic DAILY TOPIC 11/23/16 09:00 12/23/16 08:59 11/27/16 13:39 Colistimethate Sodium 150 mg 150 mg Q12HR@10,22 INH 11/09/16 22:00 11/29/16 21:59 11/28/16 09:19 Dextrose (Dextrose 50%) STAT PRN IV Hypoglycemia 11/02/16 17:00 12/02/16 16:59 Insulin Aspart (NovoLOG) start when feeding started Q6HR SUBQ 11/02/16 18:00 12/02/16 17:59 11/27/16 23:47 Lansoprazole (Prevacid) 30 mg DAILY GT 10/31/16 09:00 11/30/16 08:59 11/28/16 08:53 Levofloxacin (Levaquin 750mg/ D5W) 150 ml @ 100 mls/hr Q24H IVPB 11/11/16 14:30 12/22/16 14:29 11/27/16 14:35 Metoclopramide HCl (Reglan) 10 mg TID GT 11/24/16 09:00 12/24/16 08:59 11/28/16 08:53 Ondansetron HCl (Zofran) 4 mg Q6H PRN IVP Nausea & Vomiting 11/02/16 17:00 12/02/16 16:59 Polyethylene Glycol (Miralax) 17 gm BEDTIME ORAL 11/24/16 21:00 12/24/16 20:59 Sodium Chloride (NS) 500 ml @ 999 mls/hr PRN PRN IVPB For hypotension 11/09/16 17:15 12/09/16 17:14 11/10/16 22:00 KIMBERLEE HINKLE M.D. November 28, 2016 09:44
--- NOTE | 2016-11-28 11:01 | Pulmonology Progress Note ---
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, 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, 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, ID Subjective Constitutional: Reports: no symptoms HEENT: Repors: no symptoms Respiratory: Reports: no symptoms Allergies: Coded Allergies: No Known Allergies (Unverified , 06/17/16) Objective Last 24 Hour Vital Signs Date Time Temp Pulse Resp B/P Pulse Ox O2 Delivery O2 Flow Rate FiO2 11/28/16 09:13 100 18 98 Mechanical Ventilator 11/28/16 09:03 102 23 99 Mechanical Ventilator 40 11/28/16 09:01 102 23 40 11/28/16 08:00 40 11/28/16 08:00 97.8 100 20 121/70 99 Mechanical Ventilator 40 11/28/16 08:00 93 11/28/16 07:28 101 21 40 11/28/16 05:17 106 16 40 11/28/16 04:00 40 11/28/16 04:00 97.9 96 19 112/73 98 Mechanical Ventilator 11/28/16 04:00 105 11/28/16 03:30 104 21 40 11/28/16 01:30 110 20 40 11/28/16 00:00 40 11/28/16 00:00 99 11/28/16 00:00 97.2 85 18 100/68 100 Mechanical Ventilator 11/27/16 23:20 96 17 40 11/27/16 21:43 103 20 100 Mechanical Ventilator 11/27/16 21:41 104 16 100 Mechanical Ventilator 40 11/27/16 21:30 105 16 40 11/27/16 20:00 40 11/27/16 20:00 97.6 109 18 113/63 100 Mechanical Ventilator 11/27/16 20:00 107 11/27/16 19:30 108 17 40 11/27/16 18:33 97.8 11/27/16 16:38 113 16 40 11/27/16 16:00 98 11/27/16 16:00 97.8 104 18 98/59 100 Mechanical Ventilator 40 11/27/16 16:00 40 11/27/16 15:35 108 16 100 Mechanical Ventilator 40 11/27/16 15:35 40 11/27/16 14:56 94 16 40 11/27/16 14:30 103 18 124/76 100 Mechanical Ventilator 40 11/27/16 13:21 101 16 40 11/27/16 12:00 97.6 92 19 88/55 100 Mechanical Ventilator 40 11/27/16 12:00 40 11/27/16 12:00 96 11/27/16 11:08 96 16 40 Intake and Output 11/27/16 11/28/16 19:00 07:00 Intake Total 1100 ml 645 ml Output Total 1000 ml 1600 ml Balance 100 ml -955 ml Free Water 450 ml 450 ml Tube Feeding 650 ml 195 ml Output Urine Total 1000 ml 1600 ml # Bowel Movements 1 Objective Status: awake HEENT: atraumatic, normocephalic Lungs: clear, decreased breath sounds Heart: HR/BP stable Abdomen: soft, non-tender Extremities: no C/C/E, edema Laboratory Tests 11/28/16 03:40: White Blood Count 9.9, Red Blood Count 3.16L, Hemoglobin 8.8L, Hematocrit 27.8L , Mean Corpuscular Volume 88, Mean Corpuscular Hemoglobin 27.7, Mean Corpuscular Hemoglobin Concent 31.6L, Red Cell Distribution Width 16.8H, Platelet Count 163, Mean Platelet Volume 7.3, Neutrophils (%) (Auto) 78.5H, Lymphocytes (%) (Auto) 7.6L, Monocytes (%) (Auto) 11.9H, Eosinophils (%) (Auto) 1.2, Basophils (%) (Auto) 0.8, Sodium Level 136, Potassium Level 4.3, Chloride Level 94L, Carbon Dioxide Level 37H, Anion Gap 5, Blood Urea Nitrogen 8, Creatinine 0.4L, Estimat Glomerular Filtration Rate > 60, Glucose Level 84, Calcium Level 7.8L, Phosphorus Level 3.6, Magnesium Level 1.7, Total Bilirubin 0.2, Aspartate Amino Transf (AST/SGOT) 20, Alanine Aminotransferase (ALT/SGPT) 14, Alkaline Phosphatase 171H, Total Protein 5.7L, Albumin 1.4L, Globulin 4.3, Albumin/Globulin Ratio 0.3L Current Medications Medications (Trade) Dose Ordered Sig/Shraddha Route PRN Reason Start Time Stop Time Status Last Admin Dose Admin Acetaminophen (Tylenol) 650 mg Q4H PRN ORAL fever>100.5 11/02/16 17:00 12/02/16 16:59 11/22/16 06:12 Acetaminophen 650 mg 650 mg Q4H PRN GT headache 11/03/16 08:00 12/03/16 07:59 11/27/16 18:04 Albuterol/ Ipratropium (DuoNeb 0.5-3(2.5)mg/3ml) 3 ml Q4H PRN HHN Shortness of Breath 11/24/16 08:15 11/29/16 08:14 Chlorhexidine Gluconate (Mariluz-Hex 2%) 1 applic DAILY TOPIC 11/23/16 09:00 12/23/16 08:59 11/27/16 13:39 Colistimethate Sodium 150 mg 150 mg Q12HR@10,22 INH 11/09/16 22:00 11/29/16 21:59 11/28/16 09:19 Dextrose (Dextrose 50%) STAT PRN IV Hypoglycemia 11/02/16 17:00 12/02/16 16:59 Insulin Aspart (NovoLOG) start when feeding started Q6HR SUBQ 11/02/16 18:00 12/02/16 17:59 11/27/16 23:47 Lansoprazole (Prevacid) 30 mg DAILY GT 10/31/16 09:00 11/30/16 08:59 11/28/16 08:53 Levofloxacin (Levaquin 750mg/ D5W) 150 ml @ 100 mls/hr Q24H IVPB 11/11/16 14:30 12/22/16 14:29 11/27/16 14:35 Metoclopramide HCl (Reglan) 10 mg TID GT 11/24/16 09:00 12/24/16 08:59 11/28/16 08:53 Ondansetron HCl (Zofran) 4 mg Q6H PRN IVP Nausea & Vomiting 11/02/16 17:00 12/02/16 16:59 Polyethylene Glycol (Miralax) 17 gm BEDTIME ORAL 11/24/16 21:00 12/24/16 20:59 Sodium Chloride (NS) 500 ml @ 999 mls/hr PRN PRN IVPB For hypotension 11/09/16 17:15 12/09/16 17:14 11/10/16 22:00 REN WRIGHT November 28, 2016 11:01
[2016-11-28] MEDS: DuoNeb 0.5-3(2.5)mg/3ml neb HHN PRN ×3 (11:05→22:47)
--- NOTE | 2016-11-28 11:20 | General Progress Note ---
Assessment/Plan Assessment/Plan Assessment - Colon polyps/mass seen on CT - patient has declined GI w/u - COPD - respiratory failure - PNA and lung abscess - s/p trach and PEG - dysphagia - Leukocytosis - resolved - elevated Alk phos - resolving - h/o OB (+) - Anemia - Poor PX Recommendations - transfuse PRN - elevate HOB - vent care - abx - GT care / TF - follow labs Subjective Allergies: Coded Allergies: No Known Allergies (Unverified , 06/17/16) Subjective calm NAD. awake no abd c/o tolerating cycled TF labs noted Objective Last 24 Hour Vital Signs Date Time Temp Pulse Resp B/P Pulse Ox O2 Delivery O2 Flow Rate FiO2 11/28/16 11:04 40 11/28/16 11:03 106 17 100 Mechanical Ventilator 40 11/28/16 10:59 106 17 40 11/28/16 09:13 100 18 98 Mechanical Ventilator 11/28/16 09:03 102 23 99 Mechanical Ventilator 40 11/28/16 09:01 102 23 40 11/28/16 08:00 40 11/28/16 08:00 97.8 100 20 121/70 99 Mechanical Ventilator 40 11/28/16 08:00 93 11/28/16 07:28 101 21 40 11/28/16 05:17 106 16 40 11/28/16 04:00 40 11/28/16 04:00 97.9 96 19 112/73 98 Mechanical Ventilator 11/28/16 04:00 105 11/28/16 03:30 104 21 40 11/28/16 01:30 110 20 40 11/28/16 00:00 40 11/28/16 00:00 99 11/28/16 00:00 97.2 85 18 100/68 100 Mechanical Ventilator 11/27/16 23:20 96 17 40 11/27/16 21:43 103 20 100 Mechanical Ventilator 11/27/16 21:41 104 16 100 Mechanical Ventilator 40 11/27/16 21:30 105 16 40 11/27/16 20:00 40 11/27/16 20:00 97.6 109 18 113/63 100 Mechanical Ventilator 11/27/16 20:00 107 11/27/16 19:30 108 17 40 11/27/16 18:33 97.8 11/27/16 16:38 113 16 40 11/27/16 16:00 98 11/27/16 16:00 97.8 104 18 98/59 100 Mechanical Ventilator 40 11/27/16 16:00 40 11/27/16 15:35 108 16 100 Mechanical Ventilator 40 11/27/16 15:35 40 11/27/16 14:56 94 16 40 11/27/16 14:30 103 18 124/76 100 Mechanical Ventilator 40 11/27/16 13:21 101 16 40 11/27/16 12:00 97.6 92 19 88/55 100 Mechanical Ventilator 40 11/27/16 12:00 40 11/27/16 12:00 96 Intake and Output 11/27/16 11/28/16 19:00 07:00 Intake Total 1100 ml 645 ml Output Total 1000 ml 1600 ml Balance 100 ml -955 ml Free Water 450 ml 450 ml Tube Feeding 650 ml 195 ml Output Urine Total 1000 ml 1600 ml # Bowel Movements 1 Laboratory Tests 11/28/16 03:40: White Blood Count 9.9, Red Blood Count 3.16L, Hemoglobin 8.8L, Hematocrit 27.8L , Mean Corpuscular Volume 88, Mean Corpuscular Hemoglobin 27.7, Mean Corpuscular Hemoglobin Concent 31.6L, Red Cell Distribution Width 16.8H, Platelet Count 163, Mean Platelet Volume 7.3, Neutrophils (%) (Auto) 78.5H, Lymphocytes (%) (Auto) 7.6L, Monocytes (%) (Auto) 11.9H, Eosinophils (%) (Auto) 1.2, Basophils (%) (Auto) 0.8, Sodium Level 136, Potassium Level 4.3, Chloride Level 94L, Carbon Dioxide Level 37H, Anion Gap 5, Blood Urea Nitrogen 8, Creatinine 0.4L, Estimat Glomerular Filtration Rate > 60, Glucose Level 84, Calcium Level 7.8L, Phosphorus Level 3.6, Magnesium Level 1.7, Total Bilirubin 0.2, Aspartate Amino Transf (AST/SGOT) 20, Alanine Aminotransferase (ALT/SGPT) 14, Alkaline Phosphatase 171H, Total Protein 5.7L, Albumin 1.4L, Globulin 4.3, Albumin/Globulin Ratio 0.3L Height (Feet): 6 Height (Inches): 2.00 Weight (Pounds): 126 Objective Elderly AA man NCAT (+) trach Coarse BS RRR soft NT abdomen, (+) GT awake ROSEMARY BURROUGHS November 28, 2016 11:20
[2016-11-28 12:00] VITALS: BP 116/64
--- NOTE | 2016-11-28 15:06 | Cardiac Electrophysiology PN ---
Assessment/Plan Assessment/Plan 1. Sinus tachycardia due to sepsis. No SVT or fib. HR better. 2. Hypotension .Resolved after abx and PRBC 11/18/16. 3. Severe COPD and pulmonary hypertension 4. Ventilator-dependant respiratory failure, status post tracheostomy. 5. Dysphagia, status post percutaneous endoscopic gastrostomy placement. 6. Sepsis on intravenous antibiotics per ID. 7. 5-6 cm cavitary focus suspicious for lung abscess in the right upper lobe. 8. Colonic mass and anemia.S/P transfusion. 9. Generalized edema. Upper extremity doppler No DVT 10. Pleural effusion, SP thoracentesis with no evidence of empyema 7 DW RN Subjective Subjective On JORDAN on Vent via tracheostomy.Comfortable with no events overnight.Suctions himself. Objective Last 24 Hour Vital Signs Date Time Temp Pulse Resp B/P Pulse Ox O2 Delivery O2 Flow Rate FiO2 11/28/16 13:17 119 16 40 11/28/16 12:08 101 11/28/16 12:00 40 11/28/16 12:00 101 11/28/16 12:00 98.5 82 18 116/64 100 11/28/16 11:13 106 16 100 Mechanical Ventilator 40 11/28/16 11:04 40 11/28/16 11:03 106 17 100 Mechanical Ventilator 40 11/28/16 10:59 106 17 40 11/28/16 09:13 100 18 98 Mechanical Ventilator 11/28/16 09:03 102 23 99 Mechanical Ventilator 40 11/28/16 09:01 102 23 40 11/28/16 08:00 40 11/28/16 08:00 97.8 100 20 121/70 99 Mechanical Ventilator 40 11/28/16 08:00 93 11/28/16 07:28 101 21 40 11/28/16 05:17 106 16 40 11/28/16 04:00 40 11/28/16 04:00 97.9 96 19 112/73 98 Mechanical Ventilator 11/28/16 04:00 105 11/28/16 03:30 104 21 40 11/28/16 01:30 110 20 40 11/28/16 00:00 40 11/28/16 00:00 99 11/28/16 00:00 97.2 85 18 100/68 100 Mechanical Ventilator 11/27/16 23:20 96 17 40 11/27/16 21:43 103 20 100 Mechanical Ventilator 11/27/16 21:41 104 16 100 Mechanical Ventilator 40 11/27/16 21:30 105 16 40 11/27/16 20:00 40 11/27/16 20:00 97.6 109 18 113/63 100 Mechanical Ventilator 11/27/16 20:00 107 11/27/16 19:30 108 17 40 11/27/16 18:33 97.8 11/27/16 16:38 113 16 40 11/27/16 16:00 98 11/27/16 16:00 97.8 104 18 98/59 100 Mechanical Ventilator 40 11/27/16 16:00 40 11/27/16 15:35 108 16 100 Mechanical Ventilator 40 11/27/16 15:35 40 Intake and Output 11/27/16 11/28/16 19:00 07:00 Intake Total 1100 ml 645 ml Output Total 1000 ml 1600 ml Balance 100 ml -955 ml Free Water 450 ml 450 ml Tube Feeding 650 ml 195 ml Output Urine Total 1000 ml 1600 ml # Bowel Movements 1 Laboratory Tests Test 11/28/16 03:40 White Blood Count 9.9 K/UL (4.8-10.8) Red Blood Count 3.16 M/UL (4.70-6.10) L Hemoglobin 8.8 G/DL (14.2-18.0) L Hematocrit 27.8 % (42.0-52.0) L Mean Corpuscular Volume 88 FL (80-99) Mean Corpuscular Hemoglobin 27.7 PG (27.0-31.0) Mean Corpuscular Hemoglobin Concent 31.6 G/DL (32.0-36.0) L Red Cell Distribution Width 16.8 % (11.6-14.8) H Platelet Count 163 K/UL (150-450) Mean Platelet Volume 7.3 FL (6.5-10.1) Neutrophils (%) (Auto) 78.5 % (45.0-75.0) H Lymphocytes (%) (Auto) 7.6 % (20.0-45.0) L Monocytes (%) (Auto) 11.9 % (1.0-10.0) H Eosinophils (%) (Auto) 1.2 % (0.0-3.0) Basophils (%) (Auto) 0.8 % (0.0-2.0) Sodium Level 136 mEQ/L (135-145) Potassium Level 4.3 mEQ/L (3.4-4.9) Chloride Level 94 mEQ/L (98-107) L Carbon Dioxide Level 37 mEQ/L (20-30) H Anion Gap 5 (5-15) Blood Urea Nitrogen 8 mg/dL (7-23) Creatinine 0.4 mg/dL (0.7-1.2) L Estimat Glomerular Filtration Rate > 60 mL/min (>60) Glucose Level 84 mg/dL (74-106) Calcium Level 7.8 mg/dL (8.6-10.2) L Phosphorus Level 3.6 mg/dL (2.5-4.8) Magnesium Level 1.7 mg/dL (1.7-2.5) Total Bilirubin 0.2 mg/dL (0.0-1.2) Aspartate Amino Transf (AST/SGOT) 20 U/L (5-40) Alanine Aminotransferase (ALT/SGPT) 14 U/L (3-41) Alkaline Phosphatase 171 U/L (40-129) H Total Protein 5.7 g/dL (6.6-8.7) L Albumin 1.4 g/dL (3.5-5.2) L Globulin 4.3 g/dL Albumin/Globulin Ratio 0.3 (1.0-2.7) L Objective HEAD AND NECK: No JVD, tracheostomy intact. LUNGS: Clear bilaterally. CARDIOVASCULAR: Tachycardic S1 and S2 with no gallop or murmur. ABDOMEN: Soft. G-tube intact. EXTREMITIES: Anasarca.PICC line in place left arm. OSWALD HILLS November 28, 2016 15:06
--- NOTE | 2016-11-28 15:31 | Wound Care Consultation ---
Wound Assessment Wound Assessment : Wound Present on Admission: No New Wound: No Status Change of Wound: No Wound Location Body Site Modif: mid Wound Location Body Site: perineal area - scrotum Wound Type: chemical burn - with erosion Nisha Test: Does not Nisha Wound Thickness: Partial Thickness Percent of Wound [place]/Red: 100 Wound Drainage Description: Serosanguineous Wound Drainage Amount: None Wound Drainage Odor: None/Absent Tissue Surrounding Wound: Intact Wound General Appearance: Reddened Wound Comment #1 Chemical burn with erosion on perineal/posterior scrotum area Recommendation -Chemical burn on posterior scrotum Cleanse with saline, pat dry, apply Triad cream, cover with Biatain silicone daily and PRN soiled/dislodged -Keep clean and dry -Turn and reposition -Optimize nutrition -Assess and f/u accordingly for any changes CARRILLO HARRISON RN November 28, 2016 15:31
[2016-11-28 16:00] VITALS: BP 110/64
--- NOTE | 2016-11-28 16:36 | Diagnostic Imaging Report ---
APPROVED REPORT CPT Code: 03458 Present Symptoms Upper Extremity Pain: Left Upper Extremity Edema: Left LEFT UPPER EXTREMITY: Venous imaging reveals patency of the internal jugular, subclavian, axillary and brachial veins. The cephalic and basilic veins are also patent. Doppler indicates normal spontaneous flow within these venous segments.
--- NOTE | 2016-11-28 19:50 | Internal Med Progress Note ---
Subjective Date of Service: November 28, 2016 Physician Name Verdin,Tadeo Attending Physician Steve Rader MD Current Medications Medications (Trade) Dose Ordered Sig/Shraddha Route PRN Reason Start Time Stop Time Status Last Admin Dose Admin Acetaminophen (Tylenol) 650 mg Q4H PRN ORAL fever>100.5 11/02/16 17:00 12/02/16 16:59 11/22/16 06:12 Acetaminophen 650 mg 650 mg Q4H PRN GT headache 11/03/16 08:00 12/03/16 07:59 11/27/16 18:04 Albuterol/ Ipratropium (DuoNeb 0.5-3(2.5)mg/3ml) 3 ml Q4H PRN HHN Shortness of Breath 11/24/16 08:15 11/29/16 08:14 11/28/16 19:26 Chlorhexidine Gluconate (Mariluz-Hex 2%) 1 applic DAILY TOPIC 11/23/16 09:00 12/23/16 08:59 11/27/16 13:39 Colistimethate Sodium 150 mg 150 mg Q12HR@10,22 INH 11/09/16 22:00 11/29/16 21:59 11/28/16 19:46 Dextrose (Dextrose 50%) STAT PRN IV Hypoglycemia 11/02/16 17:00 12/02/16 16:59 Insulin Aspart (NovoLOG) start when feeding started Q6HR SUBQ 11/02/16 18:00 12/02/16 17:59 11/28/16 12:57 Lansoprazole (Prevacid) 30 mg DAILY GT 10/31/16 09:00 11/30/16 08:59 11/28/16 08:53 Levofloxacin (Levaquin 750mg/ D5W) 150 ml @ 100 mls/hr Q24H IVPB 11/11/16 14:30 12/22/16 14:29 11/28/16 14:03 Metoclopramide HCl (Reglan) 10 mg TID GT 11/24/16 09:00 12/24/16 08:59 11/28/16 17:39 Ondansetron HCl (Zofran) 4 mg Q6H PRN IVP Nausea & Vomiting 11/02/16 17:00 12/02/16 16:59 Polyethylene Glycol (Miralax) 17 gm BEDTIME ORAL 11/24/16 21:00 12/24/16 20:59 Sodium Chloride (NS) 500 ml @ 999 mls/hr PRN PRN IVPB For hypotension 11/09/16 17:15 12/09/16 17:14 11/10/16 22:00 Allergies: Coded Allergies: No Known Allergies (Unverified , 06/17/16) ROS Limited/Unobtainable: No Constitutional: Reports: no symptoms HEENT: Reports: no symptoms Cardiovascular: Reports: no symptoms Respiratory: Reports: no symptoms Gastrointestinal/Abdominal: Reports: no symptoms Genitourinary: Reports: no symptoms Neurologic/Psychiatric: Reports: no symptoms Subjective 66 YO M admitted with respiratory failure. JORDAN. Trach with [facility] vent. Cover for Int Med-Dr Rader. Objective Last Vital Signs Date Time Temp Pulse Resp B/P Pulse Ox O2 Delivery O2 Flow Rate FiO2 11/28/16 19:47 114 16 99 Mechanical Ventilator 40 11/28/16 16:00 98.7 110/64 11/24/16 23:40 40.0 Laboratory Tests Test 11/28/16 03:40 White Blood Count 9.9 K/UL (4.8-10.8) Red Blood Count 3.16 M/UL (4.70-6.10) L Hemoglobin 8.8 G/DL (14.2-18.0) L Hematocrit 27.8 % (42.0-52.0) L Mean Corpuscular Volume 88 FL (80-99) Mean Corpuscular Hemoglobin 27.7 PG (27.0-31.0) Mean Corpuscular Hemoglobin Concent 31.6 G/DL (32.0-36.0) L Red Cell Distribution Width 16.8 % (11.6-14.8) H Platelet Count 163 K/UL (150-450) Mean Platelet Volume 7.3 FL (6.5-10.1) Neutrophils (%) (Auto) 78.5 % (45.0-75.0) H Lymphocytes (%) (Auto) 7.6 % (20.0-45.0) L Monocytes (%) (Auto) 11.9 % (1.0-10.0) H Eosinophils (%) (Auto) 1.2 % (0.0-3.0) Basophils (%) (Auto) 0.8 % (0.0-2.0) Sodium Level 136 mEQ/L (135-145) Potassium Level 4.3 mEQ/L (3.4-4.9) Chloride Level 94 mEQ/L (98-107) L Carbon Dioxide Level 37 mEQ/L (20-30) H Anion Gap 5 (5-15) Blood Urea Nitrogen 8 mg/dL (7-23) Creatinine 0.4 mg/dL (0.7-1.2) L Estimat Glomerular Filtration Rate > 60 mL/min (>60) Glucose Level 84 mg/dL (74-106) Calcium Level 7.8 mg/dL (8.6-10.2) L Phosphorus Level 3.6 mg/dL (2.5-4.8) Magnesium Level 1.7 mg/dL (1.7-2.5) Total Bilirubin 0.2 mg/dL (0.0-1.2) Aspartate Amino Transf (AST/SGOT) 20 U/L (5-40) Alanine Aminotransferase (ALT/SGPT) 14 U/L (3-41) Alkaline Phosphatase 171 U/L (40-129) H Total Protein 5.7 g/dL (6.6-8.7) L Albumin 1.4 g/dL (3.5-5.2) L Globulin 4.3 g/dL Albumin/Globulin Ratio 0.3 (1.0-2.7) L Intake and Output 11/27/16 11/28/16 19:00 07:00 Intake Total 1100 ml 645 ml Output Total 1000 ml 1600 ml Balance 100 ml -955 ml Free Water 450 ml 450 ml Tube Feeding 650 ml 195 ml Output Urine Total 1000 ml 1600 ml # Bowel Movements 1 Objective General Appearance: moderate distress, thin EENT: PERRL/EOMI, normal ENT inspection Neck: non-tender, normal alignment, supple Cardiovascular: normal peripheral pulses, normal rate, regular rhythm, no gallop/murmur, no JVD Respiratory/Chest: Mech vent; trach; respiratory distress, crackles/rales, rhonchi - bilaterally, expiratory wheezing Abdomen: non tender, soft, no organomegaly, no mass, decreased bowel sounds Extremities: normal range of motion Skin: normal pigmentation, warm/dry Assessment/Plan Problem List: (1) Lung nodule (2) DVT (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 (3) Acute respiratory failure Assessment & Plan: S/P tracheostomy 10/03/16. Cont vent per pulm (4) COPD exacerbation Assessment & Plan: Continue duoneb. Continue vent per pulmonary. (5) Pneumonia Assessment & Plan: Pseudamonas. New RLL consolidation. Continue colistin (inh ) and levaquin; discontinue micafungin, linezolid, and meropenem per ID (6) Leukocytosis Assessment & Plan: Worsening. Await Culture results. D/C meropenem and micafungin; continue levaquin and colistin (inh) per ID (7) Dysphagia Assessment & Plan: See GI consult- S/P PEG 10/04/16. (8) Hypoglycemia Assessment & Plan: D50 prn; decrease insulin sliding scale. (9) Dysuria Assessment & Plan: D/C garcia cath. (10) Severe sepsis Assessment & Plan: Blood cultures X2. Cont meropenem, colistin Inh, levaquin, micafungin and linezolid per ID. (11) Hypotension Assessment & Plan: ICU status for pressors, (12) Gastric mass (13) Mass of colon Assessment & Plan: Cecum and colon masses. See GI note. (14) UTI (urinary tract infection) due to Enterococcus Assessment & Plan: Love. On micafungin. See ID note. (15) Empyema Assessment & Plan: Possible per pulmonary. Cont Micafungin, meropenem, colistin (inh) and linezolid per ID (16) Anemia Assessment & Plan: S/P transfusion 1 unit PRBC (17) Pleural effusion on right Assessment & Plan: S/P Thoracentesis 11/21/16. Assessment/Plan Await placement @ residential acute care fac TADEO VERDIN November 28, 2016 19:50
[2016-11-28 20:00] VITALS: BP 99/69
[2016-11-28] MEDS: Miralax 17gm pkt ORAL SCH (21:22)
[2016-11-29 00:59] VITALS: BP 96/57
[2016-11-29 04:00] VITALS: BP 101/92
[2016-11-29] MEDS: NovoLOG Insulin Flexpen SUBQ SCH ×3 (05:03→18:00)
[2016-11-29 08:00] VITALS: BP 95/63
[2016-11-29] MEDS: Metoclopramide 10mg/10ml Liq GT SCH ×3 (09:12→18:04)
[2016-11-29] MEDS: Dyna-Hex 2% Top Sol 8oz TOPIC SCH (09:12)
[2016-11-29] MEDS: Colistin for inhalation INH SCH (09:59)
--- NOTE | 2016-11-29 10:35 | Pulmonology Progress Note ---
Assessment/Plan Problems: (1) Severe sepsis (2) Abdominal distention (3) Respiratory failure (4) COPD exacerbation (5) Emphysema of lung (6) Colonic mass Assessment/Plan Respiratory: monitor respiratory rate Cardiac: start pressors, continue pressors Renal: F/U I&O, keep IV fluid Infectious Disease: check cultures, continue antibiotics Endocrine: monitor blood sugar, continue sliding scale insulin Hematologic: monitor H/H, transfuse if hgb<8.5 Neurologic: PRN Morphine, keep patient comfortable Affect: PRN ativan Time Spent (Minutes): 40 Notes Reviewed: english faculty member, cardio 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, consultants, nurse outreach case manager Subjective ROS Limited/Unobtainable: No Constitutional: Reports: no symptoms HEENT: Repors: no symptoms Allergies: Coded Allergies: No Known Allergies (Unverified , 06/17/16) Objective Last 24 Hour Vital Signs Date Time Temp Pulse Resp B/P Pulse Ox O2 Delivery O2 Flow Rate FiO2 11/29/16 10:22 95 11/29/16 09:59 101 18 100 Mechanical Ventilator 40 11/29/16 08:43 86 16 40 11/29/16 08:00 97.3 112 22 95/63 100 Mechanical Ventilator 40 11/29/16 08:00 40 11/29/16 06:33 88 16 40 11/29/16 05:00 113 16 40 11/29/16 04:00 121 11/29/16 04:00 98.0 100 16 101/92 100 Mechanical Ventilator 40 11/29/16 04:00 40 11/29/16 03:12 100 16 40 11/29/16 01:16 102 16 40 11/29/16 00:59 98.4 110 16 96/57 100 Mechanical Ventilator 40 11/29/16 00:00 40 11/29/16 00:00 103 11/28/16 23:19 108 16 100 Mechanical Ventilator 40 11/28/16 23:00 40 11/28/16 22:59 110 16 98 Mechanical Ventilator 40 11/28/16 22:57 110 16 40 11/28/16 21:15 108 16 40 11/28/16 20:10 105 18 98 Mechanical Ventilator 11/28/16 20:00 40 11/28/16 20:00 116 11/28/16 20:00 98.3 118 18 99/69 100 Mechanical Ventilator 40 11/28/16 19:54 114 16 100 Mechanical Ventilator 40 11/28/16 19:47 114 16 99 Mechanical Ventilator 40 11/28/16 19:35 40 11/28/16 19:34 112 18 100 Mechanical Ventilator 40 11/28/16 19:30 91 16 40 11/28/16 16:55 98 16 40 11/28/16 16:00 40 11/28/16 16:00 98.7 94 18 110/64 100 Mechanical Ventilator 11/28/16 16:00 94 11/28/16 15:03 40 11/28/16 15:03 105 18 100 Mechanical Ventilator 40 11/28/16 15:02 106 18 40 11/28/16 13:17 119 16 40 11/28/16 12:08 101 11/28/16 12:00 40 11/28/16 12:00 101 11/28/16 12:00 98.5 82 18 116/64 100 11/28/16 11:13 106 16 100 Mechanical Ventilator 40 11/28/16 11:04 40 11/28/16 11:03 106 17 100 Mechanical Ventilator 40 11/28/16 10:59 106 17 40 Intake and Output 11/28/16 11/29/16 19:00 07:00 Intake Total 870 ml 645 ml Output Total 2300 ml 2000 ml Balance -1430 ml -1355 ml Free Water 100 ml 450 ml Tube Feeding 650 ml 195 ml Other 120 ml Output Urine Total 2300 ml 2000 ml # Bowel Movements 2 Objective Status: awake HEENT: atraumatic, normocephalic Lungs: clear, decreased breath sounds Heart: HR/BP stable Abdomen: soft, non-tender Extremities: no C/C/E, edema Current Medications Medications (Trade) Dose Ordered Sig/Shraddha Route PRN Reason Start Time Stop Time Status Last Admin Dose Admin Acetaminophen (Tylenol) 650 mg Q4H PRN ORAL fever>100.5 11/02/16 17:00 12/02/16 16:59 11/22/16 06:12 Acetaminophen 650 mg 650 mg Q4H PRN GT headache 11/03/16 08:00 12/03/16 07:59 11/27/16 18:04 Chlorhexidine Gluconate (Mariluz-Hex 2%) 1 applic DAILY TOPIC 11/23/16 09:00 12/23/16 08:59 11/29/16 09:12 Colistimethate Sodium 150 mg 150 mg Q12HR@10,22 INH 11/09/16 22:00 11/29/16 21:59 11/29/16 09:59 Dextrose (Dextrose 50%) STAT PRN IV Hypoglycemia 11/02/16 17:00 12/02/16 16:59 Insulin Aspart (NovoLOG) start when feeding started Q6HR SUBQ 11/02/16 18:00 12/02/16 17:59 11/28/16 23:07 Lansoprazole (Prevacid) 30 mg DAILY GT 10/31/16 09:00 11/30/16 08:59 11/29/16 09:12 Levofloxacin (Levaquin 750mg/ D5W) 150 ml @ 100 mls/hr Q24H IVPB 11/11/16 14:30 12/22/16 14:29 11/28/16 14:03 Metoclopramide HCl (Reglan) 10 mg TID GT 11/24/16 09:00 12/24/16 08:59 11/29/16 09:12 Ondansetron HCl (Zofran) 4 mg Q6H PRN IVP Nausea & Vomiting 11/02/16 17:00 12/02/16 16:59 Polyethylene Glycol (Miralax) 17 gm BEDTIME ORAL 11/24/16 21:00 12/24/16 20:59 11/28/16 21:22 Sodium Chloride (NS) 500 ml @ 999 mls/hr PRN PRN IVPB For hypotension 11/09/16 17:15 12/09/16 17:14 11/10/16 22:00 REN WRIGHT November 29, 2016 10:35
[2016-11-29] MEDS ORDERED: DuoNeb 0.5-3(2.5)mg/3ml neb HHN PRN (11:00)
--- NOTE | 2016-11-29 11:47 | Infectious Diseases Prog Note ---
Assessment/Plan Assessment/Plan Plan ASSESSMENT: 66 y/o male with: // VAP / RUL Pna , as per pul no evidence of abscess - SCx: MDR ACB and PSA , repeat Scx: PSA - cxray 11/26 : Dense consolidation throughout the right lung persists - SP thoracentesis - no evide of empyema 11/21 - CT 11/14 :Extensive pneumonia involving both lungs as described above. 5-6 cm cavitary focus suspicious for lung abscess in the right upper lobe. // Probable UTI : UCx yeast and VRE b SP Rx // Leukocytosis - mild ( DVT, probable CA contributing, SP steroids ) // Hypotension SP // Febrile low grade SP // HIV and Hep B/C : neg // thoracentesis 11/21 // Colon mass ro cancer , GI is following CT: Large cecal mass and other polypoid colonic masses, detailed previously , again demonstrated // SP PEG 10/04 // Chronic VDRF SP trach // Severe pulmonary HTN / grade I diastolic dysfunction / mod TR // Pulmonary nodules // Chronic RLE DVT // Tobacco abuse // [facility] resident // Negative MRSA, VRE screens // NKDA // Full Code PLAN: - cont Levaquin d# 19 / , DC Colistin INH d# / ( SP Merrem, Zyvox and Mycamine d# 14 ) ( 11/09 SP Vanco d# 6 / 10 and oral Vanco d# 5 ) ( 10/17 SP Ceftazidime d# 14 ) ( 10/13 SP Jairon nebs d# 14 ) ( 10/11 SP Flagyl d# 10 ) ( 10/04 SP oral Vanco d# 3 ) ( 09/24 SP amikacin, invanz d# 5 / 5 ) ( 09/21 SP IV vancomycin d# 2 ) - monitor CBC, temperatures - monitor BMP - monitor CXR - vent support, trach care, aspiration precautions Subjective Constitutional: Denies: anorexia, chills, drenching sweats, fatigue, fever, no symptoms, other Allergies: Coded Allergies: No Known Allergies (Unverified , 06/17/16) Subjective afebrile , on vent Objective Vital Signs Last 24 Hour Vital Signs Date Time Temp Pulse Resp B/P Pulse Ox O2 Delivery O2 Flow Rate FiO2 11/29/16 10:42 85 18 40 11/29/16 10:22 95 11/29/16 10:11 102 18 100 Mechanical Ventilator 11/29/16 09:59 101 18 100 Mechanical Ventilator 40 11/29/16 08:43 86 16 40 11/29/16 08:00 97.3 112 22 95/63 100 Mechanical Ventilator 40 11/29/16 08:00 40 11/29/16 06:33 88 16 40 11/29/16 05:00 113 16 40 11/29/16 04:00 121 11/29/16 04:00 98.0 100 16 101/92 100 Mechanical Ventilator 40 11/29/16 04:00 40 11/29/16 03:12 100 16 40 11/29/16 01:16 102 16 40 11/29/16 00:59 98.4 110 16 96/57 100 Mechanical Ventilator 40 11/29/16 00:00 40 11/29/16 00:00 103 11/28/16 23:19 108 16 100 Mechanical Ventilator 40 11/28/16 23:00 40 11/28/16 22:59 110 16 98 Mechanical Ventilator 40 11/28/16 22:57 110 16 40 11/28/16 21:15 108 16 40 11/28/16 20:10 105 18 98 Mechanical Ventilator 11/28/16 20:00 40 11/28/16 20:00 116 11/28/16 20:00 98.3 118 18 99/69 100 Mechanical Ventilator 40 11/28/16 19:54 114 16 100 Mechanical Ventilator 40 11/28/16 19:47 114 16 99 Mechanical Ventilator 40 11/28/16 19:35 40 11/28/16 19:34 112 18 100 Mechanical Ventilator 40 11/28/16 19:30 91 16 40 11/28/16 16:55 98 16 40 11/28/16 16:00 40 11/28/16 16:00 98.7 94 18 110/64 100 Mechanical Ventilator 11/28/16 16:00 94 11/28/16 15:03 40 11/28/16 15:03 105 18 100 Mechanical Ventilator 40 11/28/16 15:02 106 18 40 11/28/16 13:17 119 16 40 11/28/16 12:08 101 11/28/16 12:00 40 11/28/16 12:00 101 11/28/16 12:00 98.5 82 18 116/64 100 Height (Feet): 6 Height (Inches): 2.00 Weight (Pounds): 126 HEENT: anicteric Respiratory/Chest: normal breath sounds Cardiovascular: regular rhythm Abdomen: no organomegaly Skin: no lesions Microbiology Date/Time Source Procedure Growth Status 11/28/16 11:10 Sputum Gram Stain - Final Resulted 11/28/16 11:10 Sputum Sputum Culture Pending Resulted Current Medications Medications (Trade) Dose Ordered Sig/Shraddha Route PRN Reason Start Time Stop Time Status Last Admin Dose Admin Acetaminophen (Tylenol) 650 mg Q4H PRN ORAL fever>100.5 11/02/16 17:00 12/02/16 16:59 11/22/16 06:12 Acetaminophen 650 mg 650 mg Q4H PRN GT headache 11/03/16 08:00 12/03/16 07:59 11/27/16 18:04 Albuterol/ Ipratropium (DuoNeb 0.5-3(2.5)mg/3ml) 3 ml Q4H PRN HHN Shortness of Breath 11/29/16 11:00 12/04/16 10:59 Chlorhexidine Gluconate (Mariluz-Hex 2%) 1 applic DAILY TOPIC 11/23/16 09:00 12/23/16 08:59 11/29/16 09:12 Colistimethate Sodium 150 mg 150 mg Q12HR@10,22 INH 11/09/16 22:00 11/29/16 21:59 11/29/16 09:59 Dextrose (Dextrose 50%) STAT PRN IV Hypoglycemia 11/02/16 17:00 12/02/16 16:59 Insulin Aspart (NovoLOG) start when feeding started Q6HR SUBQ 11/02/16 18:00 12/02/16 17:59 11/28/16 23:07 Lansoprazole (Prevacid) 30 mg DAILY GT 10/31/16 09:00 11/30/16 08:59 11/29/16 09:12 Levofloxacin (Levaquin 750mg/ D5W) 150 ml @ 100 mls/hr Q24H IVPB 11/11/16 14:30 12/22/16 14:29 11/28/16 14:03 Metoclopramide HCl (Reglan) 10 mg TID GT 11/24/16 09:00 12/24/16 08:59 11/29/16 09:12 Ondansetron HCl (Zofran) 4 mg Q6H PRN IVP Nausea & Vomiting 11/02/16 17:00 12/02/16 16:59 Polyethylene Glycol (Miralax) 17 gm BEDTIME ORAL 11/24/16 21:00 12/24/16 20:59 11/28/16 21:22 Sodium Chloride (NS) 500 ml @ 999 mls/hr PRN PRN IVPB For hypotension 11/09/16 17:15 12/09/16 17:14 11/10/16 22:00 KIMBERLEE HINKLE M.D. November 29, 2016 11:47
[2016-11-29 12:00] VITALS: BP 104/65
--- NOTE | 2016-11-29 14:59 | Internal Med Progress Note ---
Subjective Physician Name Steve Rader Attending Physician Steve Rader MD Current Medications Medications (Trade) Dose Ordered Sig/Shraddha Route PRN Reason Start Time Stop Time Status Last Admin Dose Admin Acetaminophen (Tylenol) 650 mg Q4H PRN ORAL fever>100.5 11/02/16 17:00 12/02/16 16:59 11/22/16 06:12 Acetaminophen 650 mg 650 mg Q4H PRN GT headache 11/03/16 08:00 12/03/16 07:59 11/27/16 18:04 Albuterol/ Ipratropium (DuoNeb 0.5-3(2.5)mg/3ml) 3 ml Q4H PRN HHN Shortness of Breath 11/29/16 11:00 12/04/16 10:59 11/29/16 13:23 Chlorhexidine Gluconate (Mariluz-Hex 2%) 1 applic DAILY TOPIC 11/23/16 09:00 12/23/16 08:59 11/29/16 09:12 Dextrose (Dextrose 50%) STAT PRN IV Hypoglycemia 11/02/16 17:00 12/02/16 16:59 Insulin Aspart (NovoLOG) start when feeding started Q6HR SUBQ 11/02/16 18:00 12/02/16 17:59 11/28/16 23:07 Lansoprazole (Prevacid) 30 mg DAILY GT 10/31/16 09:00 11/30/16 08:59 11/29/16 09:12 Levofloxacin (Levaquin 750mg/ D5W) 150 ml @ 100 mls/hr Q24H IVPB 11/11/16 14:30 12/22/16 14:29 11/29/16 14:51 Metoclopramide HCl (Reglan) 10 mg TID GT 11/24/16 09:00 12/24/16 08:59 11/29/16 13:39 Ondansetron HCl (Zofran) 4 mg Q6H PRN IVP Nausea & Vomiting 11/02/16 17:00 12/02/16 16:59 Polyethylene Glycol (Miralax) 17 gm BEDTIME ORAL 11/24/16 21:00 12/24/16 20:59 11/28/16 21:22 Sodium Chloride 500 ml @ 999 mls/hr PRN PRN IVPB For hypotension 11/09/16 17:15 12/09/16 17:14 11/10/16 22:00 Allergies: Coded Allergies: No Known Allergies (Unverified , 06/17/16) Subjective awake, alert, responsive on Vent, no abdominal pain. WBC 9.9, Hgb 8.8 Objective Last Vital Signs Date Time Temp Pulse Resp B/P Pulse Ox O2 Delivery O2 Flow Rate FiO2 11/29/16 13:36 88 16 100 Mechanical Ventilator 11/29/16 13:24 40 11/29/16 12:00 97.2 104/65 11/24/16 23:40 40.0 Microbiology Date/Time Source Procedure Growth Status 11/28/16 11:10 Sputum Gram Stain - Final Resulted 11/28/16 11:10 Sputum Sputum Culture Pending Resulted Intake and Output 11/28/16 11/29/16 19:00 07:00 Intake Total 870 ml 645 ml Output Total 2300 ml 2000 ml Balance -1430 ml -1355 ml Free Water 100 ml 450 ml Tube Feeding 650 ml 195 ml Other 120 ml Output Urine Total 2300 ml 2000 ml # Bowel Movements 2 Objective General: No acute distress, awake and alert HEENT: NCAT, sclera anicteric, PERRL, EOMI, poor dentition. Neck: Supple, Trach intact. Lungs: clear to auscultation bilaterally, no Wheeze, decrease air on bases. Heart: Regular rate and rhythm, normal S1/S2, no murmurs Abdomen: soft, less tenderness, not distended. Normoactive bowel sounds.PEG site is clean. : Johnson cath Extremities: No Cyanosis , clubbing, less Upper extremities edema. Neuro: A&O x 3, Able to move all extremities. Muscle atrophy. Skin: warm, no rashes Assessment/Plan Assessment/Plan (1) Lung nodule (2) DVT (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 (3) Acute respiratory failure Assessment & Plan: S/P tracheostomy 10/03/16. Failed weaning trial. Cont vent per pulmonary (4) COPD exacerbation Assessment & Plan: Continue DuoNeb. Continue vent per pulmonary. (5) Pneumonia (6) Leukocytosis Assessment & Plan: Levaquin d# (7) Dysphagia Assessment & Plan: See GI consult- S/P PEG 10/04/16. (8) colonic mass Plan: F/U with ID recommendations Remove Piccline, \DC with Johnson cath Dc to SNF today . Steve Rader MD November 29, 2016 14:59
[2016-11-29] MEDS ORDERED: LEVAQUIN500 MG ORAL (15:01)
[2016-11-29] MEDS ORDERED: MIRALAX17 G2 ORAL (15:01)
[2016-11-29] MEDS ORDERED: HIBICLENS118 ML TOPIC (15:01)
[2016-11-29] MEDS ORDERED: NOVOLOG100 UNITS1 SUBQ (15:01)
[2016-11-29 16:00] VITALS: BP 92/61
--- NOTE | 2016-11-29 17:07 | Cardiac Electrophysiology PN ---
Assessment/Plan Assessment/Plan 1. Sinus tachycardia due to sepsis. No SVT or fib. Improved 2. Hypotension .Resolved after abx and PRBC 3. Severe COPD and pulmonary hypertension 4. Ventilator-dependant respiratory failure, status post tracheostomy. 5. Dysphagia, status post percutaneous endoscopic gastrostomy placement. 6. Sepsis on antibiotics per ID. 7. 5-6 cm cavitary focus suspicious for lung abscess in the right upper lobe. 8. Colonic mass and anemia.S/P transfusion. 9. Generalized edema. Upper extremity doppler No DVT 10. Pleural effusion, SP thoracentesis with no evidence of empyema 11/21/7 DW RN OK to DC from cardiac standpoint. Subjective Subjective .Comfortable with no events overnight.Suctions himself.Awaiting DC today to [facility] Objective Last 24 Hour Vital Signs Date Time Temp Pulse Resp B/P Pulse Ox O2 Delivery O2 Flow Rate FiO2 11/29/16 17:00 108 16 40 11/29/16 16:00 40 11/29/16 15:01 89 16 40 11/29/16 13:36 88 16 100 Mechanical Ventilator 11/29/16 13:24 87 20 100 Mechanical Ventilator 40 11/29/16 13:24 87 20 40 11/29/16 12:00 97.2 96 16 104/65 98 Mechanical Ventilator 40 11/29/16 12:00 92 11/29/16 12:00 40 11/29/16 10:42 85 18 40 11/29/16 10:22 95 11/29/16 10:11 102 18 100 Mechanical Ventilator 11/29/16 09:59 101 18 100 Mechanical Ventilator 40 11/29/16 08:43 86 16 40 11/29/16 08:00 97.3 112 22 95/63 100 Mechanical Ventilator 40 11/29/16 08:00 40 11/29/16 08:00 95 11/29/16 06:33 88 16 40 11/29/16 05:00 113 16 40 11/29/16 04:00 121 11/29/16 04:00 98.0 100 16 101/92 100 Mechanical Ventilator 40 11/29/16 04:00 40 11/29/16 03:12 100 16 40 11/29/16 01:16 102 16 40 11/29/16 00:59 98.4 110 16 96/57 100 Mechanical Ventilator 40 11/29/16 00:00 40 11/29/16 00:00 103 11/28/16 23:19 108 16 100 Mechanical Ventilator 40 11/28/16 23:00 40 11/28/16 22:59 110 16 98 Mechanical Ventilator 40 11/28/16 22:57 110 16 40 11/28/16 21:15 108 16 40 11/28/16 20:10 105 18 98 Mechanical Ventilator 11/28/16 20:00 40 11/28/16 20:00 116 11/28/16 20:00 98.3 118 18 99/69 100 Mechanical Ventilator 40 11/28/16 19:54 114 16 100 Mechanical Ventilator 40 11/28/16 19:47 114 16 99 Mechanical Ventilator 40 11/28/16 19:35 40 11/28/16 19:34 112 18 100 Mechanical Ventilator 40 11/28/16 19:30 91 16 40 Intake and Output 11/28/16 11/29/16 19:00 07:00 Intake Total 870 ml 645 ml Output Total 2300 ml 2000 ml Balance -1430 ml -1355 ml Free Water 100 ml 450 ml Tube Feeding 650 ml 195 ml Other 120 ml Output Urine Total 2300 ml 2000 ml # Bowel Movements 2 Microbiology Date/Time Source Procedure Growth Status 11/28/16 11:10 Sputum Gram Stain - Final Resulted 11/28/16 11:10 Sputum Sputum Culture Pending Resulted Objective HEAD AND NECK: No JVD, tracheostomy intact. LUNGS: Clear bilaterally. CARDIOVASCULAR: Regular S1 and S2 with no gallop or murmur. ABDOMEN: Soft. G-tube intact. EXTREMITIES: Anasarca.PICC line in place left arm. OSWALD HILLS November 29, 2016 17:07
[2016-11-29] MEDS ORDERED: NS 275ml ONE (19:44)
[2016-11-29] MEDS ORDERED: Tubing IV Secondary IV ONE (19:44)
--- NOTE | 2016-11-29 22:34 | General Progress Note ---
Assessment/Plan Assessment/Plan Assessment - Colon polyps/mass seen on CT - patient has declined GI w/u - COPD - respiratory failure - PNA and lung abscess - s/p trach and PEG - dysphagia - Leukocytosis - resolved - elevated Alk phos - resolving - h/o OB (+) - Anemia - Poor PX Recommendations - transfuse PRN - elevate HOB - vent care - abx - GT care / TF - follow labs - d/c planning Subjective Allergies: Coded Allergies: No Known Allergies (Unverified , 06/17/16) Subjective calm NAD. awake no abd c/o tolerating cycled TF labs noted for discharge today Objective Last 24 Hour Vital Signs Date Time Temp Pulse Resp B/P Pulse Ox O2 Delivery O2 Flow Rate FiO2 11/29/16 17:00 108 16 40 11/29/16 16:00 86 11/29/16 16:00 40 11/29/16 16:00 97.5 103 16 92/61 100 Mechanical Ventilator 40 11/29/16 15:01 89 16 40 11/29/16 13:36 88 16 100 Mechanical Ventilator 11/29/16 13:24 87 20 100 Mechanical Ventilator 40 11/29/16 13:24 87 20 40 11/29/16 12:00 97.2 96 16 104/65 98 Mechanical Ventilator 40 11/29/16 12:00 92 11/29/16 12:00 40 11/29/16 10:42 85 18 40 11/29/16 10:22 95 11/29/16 10:11 102 18 100 Mechanical Ventilator 11/29/16 09:59 101 18 100 Mechanical Ventilator 40 11/29/16 08:43 86 16 40 11/29/16 08:00 97.3 112 22 95/63 100 Mechanical Ventilator 40 11/29/16 08:00 40 11/29/16 08:00 95 11/29/16 06:33 88 16 40 11/29/16 05:00 113 16 40 11/29/16 04:00 121 11/29/16 04:00 98.0 100 16 101/92 100 Mechanical Ventilator 40 11/29/16 04:00 40 11/29/16 03:12 100 16 40 11/29/16 01:16 102 16 40 11/29/16 00:59 98.4 110 16 96/57 100 Mechanical Ventilator 40 11/29/16 00:00 40 11/29/16 00:00 103 11/28/16 23:19 108 16 100 Mechanical Ventilator 40 11/28/16 23:00 40 11/28/16 22:59 110 16 98 Mechanical Ventilator 40 11/28/16 22:57 110 16 40 Intake and Output 11/28/16 11/29/16 19:00 07:00 Intake Total 870 ml 645 ml Output Total 2300 ml 2000 ml Balance -1430 ml -1355 ml Free Water 100 ml 450 ml Tube Feeding 650 ml 195 ml Other 120 ml Output Urine Total 2300 ml 2000 ml # Bowel Movements 2 Height (Feet): 6 Height (Inches): 2.00 Weight (Pounds): 126 Objective Elderly AA man NCAT (+) trach Coarse BS RRR soft NT abdomen, (+) GT awake ROSEMARY BURROUGHS November 29, 2016 22:34
== END 2016-11-29 19:45 | DRG 4 ==
LOC: EDBD 14:51 → EDBEDREQ 15:17 → EMR 16:00 → EDBEDREQ 16:20 → EDBEDREQSVC 16:20 → EDBEDREQ 18:46 → ICU 19:14 → 2W 10-05 10:40 → ICU 11-10 23:46 → 2W 11-11 11:45
PROC: 0BH17EZ Insertion of Endotracheal Airway into Trachea, Via Natural or Artificial Opening (ICD-10-PCS; principal; 2016-09-20)
PROC: 5A1945Z Respiratory Ventilation, 24-96 Consecutive Hours (ICD-10-PCS; principal; 2016-09-20)
PROC: 0BH17EZ Insertion of Endotracheal Airway into Trachea, Via Natural or Artificial Opening (ICD-10-PCS; 2016-09-22)
PROC: 5A1955Z Respiratory Ventilation, Greater than 96 Consecutive Hours (ICD-10-PCS; 2016-09-22)
PROC: 0B110F4 Bypass Trachea to Cutaneous with Tracheostomy Device, Open Approach (ICD-10-PCS; 2016-10-03)
PROC: 0DB68ZX Excision of Stomach, Via Natural or Artificial Opening Endoscopic, Diagnostic (ICD-10-PCS; 2016-10-04)
PROC: 0DH63UZ Insertion of Feeding Device into Stomach, Percutaneous Approach (ICD-10-PCS; 2016-10-04)
PROC: B548ZZA Ultrasonography of Superior Vena Cava, Guidance (ICD-10-PCS; 2016-11-18)
PROC: 02HV33Z Insertion of Infusion Device into Superior Vena Cava, Percutaneous Approach (ICD-10-PCS; 2016-11-18)
PROC: 0W993ZZ Drainage of Right Pleural Cavity, Percutaneous Approach (ICD-10-PCS; 2016-11-21)
DX: J96.02 Acute respiratory failure with hypercapnia (principal); R65.21 Severe sepsis with septic shock; G93.40 Encephalopathy, unspecified; A41.9 Sepsis, unspecified organism; J15.1 Pneumonia due to Pseudomonas; L89.152 Pressure ulcer of sacral region, stage 2; J90 Pleural effusion, not elsewhere classified; J95.851 Ventilator associated pneumonia; C18.9 Malignant neoplasm of colon, unspecified; J44.1 Chronic obstructive pulmonary disease with (acute) exacerbation; I82.501 Chronic embolism and thrombosis of unspecified deep veins of right lower extremity; Z99.11 Dependence on respirator [ventilator] status; N39.0 Urinary tract infection, site not specified; J44.0 Chronic obstructive pulmonary disease with (acute) lower respiratory infection; Z79.01 Long term (current) use of anticoagulants; Z93.1 Gastrostomy status; J96.01 Acute respiratory failure with hypoxia; I10 Essential (primary) hypertension; D50.9 Iron deficiency anemia, unspecified; Z72.0 Tobacco use; R00.0 Tachycardia, unspecified; R13.10 Dysphagia, unspecified; I27.2 Other secondary pulmonary hypertension; R19.7 Diarrhea, unspecified; I36.1 Nonrheumatic tricuspid (valve) insufficiency; E16.2 Hypoglycemia, unspecified; K31.7 Polyp of stomach and duodenum; K63.89 Other specified diseases of intestine; R91.8 Other nonspecific abnormal finding of lung field
CPT/HCPCS: 36415; 36569; 36600; 71010; 71250; 74000; 74176; 74177; 76604; 76700; 76705; 76937; 76942; 80048; 80053; 80150; 80202; 81003; 82248; 82270; 82378; 82550; 82553; 82607; 82728; 82747; 82803; 82962; 83540; 83550; 83605; 83735; 83880; 84100; 84484; 85007; 85025; 85610; 85730; 86703; 86705; 86709; 86710; 86803; 86850; 86900; 86901; 86920; 86927; 87040; 87070; 87081; 87086; 87181; 87205; 87324; 87340; 88104; 89051; 93005; 93306; 93970; 94002; 94003; 94150; 94640; 94660; 94664; J1815; J2250; J2405; J7620

== ENCOUNTER 2016-12-12 17:09 | Inpatient (IN) | payer MEDICARE, MEDICAID, OTHER ==
[~2016-12-12] VITALS: Ht 175.3 cm; Wt 68.0 kg
[~2016-12-12 17:09] MED LIST changes: +HIBICLENS118 ML TOPIC; +MIRALAX17 G2 ORAL; +NOVOLOG100 UNITS1 SUBQ
[2016-12-12 17:35] LABS: BASOPHILS % (AUTO) 1.6 % (0.0-2.0); EOSINOPHILS % (AUTO) 0.4 % (0.0-3.0); LYMPHOCYTES % (AUTO) 9.3 % (20.0-45.0); MEAN CORPUSCULAR HEMOGLOBIN 29.8 PG (27.0-31.0); MEAN CORPUSCULAR HGB CONC 33.4 G/DL (32.0-36.0); MEAN CORPUSCULAR VOLUME 89 FL (80-99); MEAN PLATELET VOLUME 6.2 FL (6.5-10.1); MONOCYTES % (AUTO) 4.7 % (1.0-10.0); NEUTROPHILS % (AUTO) 83.9 % (45.0-75.0); PLATELET COUNT 469 K/UL (150-450); RED BLOOD COUNT 3.47 M/UL (4.70-6.10); RED CELL DISTRIBUTION WIDTH 17.8 % (11.6-14.8); WHITE BLOOD COUNT 16.1 K/UL (4.8-10.8)
[2016-12-12 17:40] LABS: TROPONIN I < 0.30 ng/mL (<=0.30)
[2016-12-12 17:45] LABS: ALANINE AMINOTRANSFERASE 15 U/L (3-41); ALBUMIN/GLOBULIN RATIO 0.4 (1.0-2.7); ANION GAP 14 (5-15); ASPARTATE AMINO TRANSFERASE 23 U/L (5-40); CALCIUM 8.9 mg/dL (8.6-10.2); CARBON DIOXIDE 27 mEQ/L (20-30); CHLORIDE 89 mEQ/L (98-107); CREATININE 0.8 mg/dL (0.7-1.2); GLOMERULAR FILTRATION RATE > 60 mL/min (>60); HEMOLYSIS 66; POTASSIUM 5.4 mEQ/L (3.4-4.9); SODIUM 130 mEQ/L (135-145); TOTAL PROTEIN 7.7 g/dL (6.6-8.7)
[2016-12-12 17:55] LABS: CKMB 1.7 ng/mL (< 6.7)
[2016-12-12] MEDS ORDERED: Sodium Polystyrene Sulfonate 15gm Powder GT ONE (18:00)
[2016-12-12] MEDS ORDERED: Cefepime HCl 1 GM in NS 55 ML IV ONE (18:00)
[2016-12-12] MEDS ORDERED: Azithromycin 500 MG in NS 275 ML IV ONE (18:00)
[2016-12-12 18:05] LABS: APPEARANCE,URINE SLIGHTLY CLOUDY; KETONES,URINE NEGATIVE (NEGATIVE); LEUKOCYTE ESTERASE ,URINE 2+ (NEGATIVE); NITRITE,URINE NEGATIVE (NEGATIVE); PH,URINE 7 (4.5-8.0); PROTEIN,URINE 2+ (NEGATIVE); UROBILINOGEN,URINE NORMAL MG/DL (0.0-1.0)
[2016-12-12 18:12] LABS: AMORPHOUS SEDIMENT,UR FEW /LPF; BACTERIA,URINE MANY /HPF; RBC,URINE 15-20 /HPF (0 - 0)
[2016-12-12] MEDS ORDERED: Cefepime 1gm vial ONE (18:18)
[2016-12-12] MEDS ORDERED: Azithromycin Inj IV ONE (18:18)
[2016-12-12 18:37] VITALS: BP 89/64
--- NOTE | 2016-12-12 18:38 | Emergency Room Report ---
History of Present Illness General Chief Complaint: Dyspnea/Respdistress Source: Patient, Medical Record Present Illness HPI 66-year-old male presents to ED complaining of shortness of breath. Per EMS patient felt short of breath at the retirement today. Tachycardic. O2 sats were low. Upon arrival to his saturations are improved. Patient has a tracheostomy. States that he feels that his trach is blocked. Denies fevers chills. Denies chest pain. Denies cough. No other aggravating or relieving factors. Denies any other associated symptoms Allergies: Coded Allergies: No Known Allergies (Unverified , 06/17/16) Patient History Past Medical History: DM, HTN Past Surgical History: other - trach Pertinent Family History: none Social History: Denies: alcohol use, drug use, smoking Immunizations: UTD Reviewed Nursing Documentation: PMH: Agreed, PSxH: Agreed Nursing Documentation-PMH Hx Cardiac Problems: Yes Hx Hypertension: Yes Hx Diabetes: Yes Hx Cancer: No Hx Gastrointestinal Problems: Yes - esophagitis Hx Dialysis: No Hx Neurological Problems: No - metabolic encephalopathy Hx Cerebrovascular Accident: No Hx Seizures: No Hx Concentration Difficulty: Yes Hx Dysphasia: Yes - dysphagia Hx Weakness: Yes Review of Systems All Other Systems: negative except mentioned in HPI Physical Exam Vital Signs Date Time Temp Pulse Resp B/P Pulse Ox O2 Delivery O2 Flow Rate FiO2 12/12/16 17:03 97.9 120 18 109/84 100 Mechanical Ventilator 12/12/16 17:33 40 Sp02 EP Interpretation: reviewed, normal General Appearance: alert, GCS 15, non-toxic, mild distress Head: normocephalic Eyes: bilateral eye PERRL, bilateral eye normal inspection ENT: hearing grossly normal, normal pharynx, no angioedema, normal voice Neck: tracheotomy Respiratory: chest non-tender, lungs clear, normal breath sounds, decreased breath sounds - R side, speaking full sentences Cardiovascular #1: no edema, tachycardia Gastrointestinal: normal inspection Rectal: deferred Genitourinary: no CVA tenderness Musculoskeletal: normal inspection Neurologic: alert, oriented x3, responsive, motor strength/tone normal, sensory intact, speech normal Psychiatric: normal inspection Skin: normal inspection Lymphatic: normal inspection Medical Decision Making Diagnostic Impression: Primary Impression: Pleural effusion on right Additional Impressions: Respiratory distress Hyperkalemia ER Course Hospital Course 66-year-old M presenting to ED with respiratory distress, desaturating Differential diagnoses include: Pneumonia, CHF exacerbation, pneumothorax, fluid overload Clinical course Patient placed on stretcher. On manager monitoring with tachycardia. She connected to the ventilator. Respiratory therapist began suctioning and irrigating the tracheostomy . After initial history and physical, I ordered labs , IV fluids, EKG, chest x-ray, blood cultures, UA. Labs -leukocytosis noted, hemoglobin/hematocrit stable, K elevated, lactate okay troponins negative CXR - large R effusion noted. tracheostomy EKG - sinus tachycardia, no ischemic changes interpreted by me tachycardia improving with IV fluids. abx given. kayexelate given Case discussed with Dr. Andrade and he agreed to the patient to his service for further care and support I feel this is a highly complex case requiring extensive working including EKG/ Rhythm strip, Xray/CT/US, Blood/urine lab work, repeat exams while in ED, and administration of strong opiates/narcotics for pain control, admission to hospital or close patient follow up. Diagnosis - pleural effusion on right, resp distress, hyperkalemia Patient admitted to [facility] in serious condition Labs Test 12/12/16 17:10 12/12/16 17:50 White Blood Count 16.1 K/UL (4.8-10.8) Red Blood Count 3.47 M/UL (4.70-6.10) Hemoglobin 10.3 G/DL (14.2-18.0) Hematocrit 30.9 % (42.0-52.0) Mean Corpuscular Volume 89 FL (80-99) Mean Corpuscular Hemoglobin 29.8 PG (27.0-31.0) Mean Corpuscular Hemoglobin Concent 33.4 G/DL (32.0-36.0) Red Cell Distribution Width 17.8 % (11.6-14.8) Platelet Count 469 K/UL (150-450) Mean Platelet Volume 6.2 FL (6.5-10.1) Neutrophils (%) (Auto) 83.9 % (45.0-75.0) Lymphocytes (%) (Auto) 9.3 % (20.0-45.0) Monocytes (%) (Auto) 4.7 % (1.0-10.0) Eosinophils (%) (Auto) 0.4 % (0.0-3.0) Basophils (%) (Auto) 1.6 % (0.0-2.0) Sodium Level 130 mEQ/L (135-145) Potassium Level 5.4 mEQ/L (3.4-4.9) Chloride Level 89 mEQ/L (98-107) Carbon Dioxide Level 27 mEQ/L (20-30) Anion Gap 14 (5-15) Blood Urea Nitrogen 20 mg/dL (7-23) Creatinine 0.8 mg/dL (0.7-1.2) Estimat Glomerular Filtration Rate > 60 mL/min (>60) Glucose Level 125 mg/dL (74-106) Lactic Acid Level 1.30 mmol/L (0.66-2.22) Calcium Level 8.9 mg/dL (8.6-10.2) Total Bilirubin 0.3 mg/dL (0.0-1.2) Aspartate Amino Transf (AST/SGOT) 23 U/L (5-40) Alanine Aminotransferase (ALT/SGPT) 15 U/L (3-41) Alkaline Phosphatase 150 U/L (40-129) Total Creatine Kinase 22 U/L (38-174) Creatine Kinase MB 1.7 ng/mL (< 6.7) Creatine Kinase MB Relative Index 7.7 Troponin I < 0.30 ng/mL (<=0.30) Pro-B-Type Natriuretic Peptide 1017 pg/mL (0-125) Total Protein 7.7 g/dL (6.6-8.7) Albumin 2.4 g/dL (3.5-5.2) Globulin 5.3 g/dL Albumin/Globulin Ratio 0.4 (1.0-2.7) Urine Color Yellow Urine Appearance Slightly cloudy Urine pH 7 (4.5-8.0) Urine Specific [place] 1.010 (1.005-1.035) Urine Protein 2+ (NEGATIVE) Urine Glucose (UA) Negative (NEGATIVE) Urine Ketones Negative (NEGATIVE) Urine Occult Blood 5+ (NEGATIVE) Urine Nitrite Negative (NEGATIVE) Urine Bilirubin Negative (NEGATIVE) Urine Urobilinogen Normal MG/DL (0.0-1.0) Urine Leukocyte Esterase 2+ (NEGATIVE) Urine RBC 15-20 /HPF (0 - 0) Urine WBC 5-10 /HPF (0 - 0) Urine Squamous Epithelial Cells None /LPF (NONE/OCC) Urine Amorphous Sediment Few /LPF (NONE) Urine Bacteria Many /HPF (NONE) EKG Diagnostic Results Rate: tachycardiac Rhythm: NSR ST Segments: no acute changes ASA given to the pt in ED: No Rhythm Strip Diag. Results EP Interpretation: yes Rhythm: NSR, no PVC's, no ectopy Chest X-Ray Diagnostic Results EP Interpretation: Yes Findings: no pneumothorax, no acute cardiopulmonary disease, other - R sided effusion. tracheostomy Number of Views: 1 Last Vital Signs Date Time Temp Pulse Resp B/P Pulse Ox O2 Delivery O2 Flow Rate FiO2 12/12/16 17:35 118 22 40 12/12/16 17:35 Mechanical Ventilator 12/12/16 17:03 97.9 109/84 100 Status: improved Disposition: ADMITTED INPATIENT Condition: Serious Referrals: REN ANDRADE (PCP) ADRIAN RODRIGUEZ M.D. Dec 12, 2016 18:38
[2016-12-12] MEDS ORDERED: Amikacin Rx to dose MISC PRN (19:30)
[2016-12-12] MEDS ORDERED: Miralax 17gm pkt ORAL PRN (19:30)
[2016-12-12] MEDS ORDERED: LORazepam Inj 2mg/ml 1ml IV PRN (19:30)
[2016-12-12] MEDS ORDERED: Morphine Sulfate 4mg/ml Inj IVP PRN (19:30)
[2016-12-12] MEDS ORDERED: FLEET ENEMA133 ML RECTAL (19:39)
[2016-12-12] MEDS ORDERED: DULCOLAX10 MG RC (19:39)
[2016-12-12] MEDS ORDERED: BENZONATATE100 MG GT (19:41)
[2016-12-12] MEDS ORDERED: FOLIC ACID1 MG GT (19:42)
[2016-12-12] MEDS ORDERED: GUAIFENESIN200 MG GT (19:45)
[2016-12-12] MEDS ORDERED: VITAMIN C500 MG/11 GT (19:49)
[2016-12-12] MEDS ORDERED: UTI-STAT L3875 MG/31 GT (19:49)
[2016-12-12] MEDS ORDERED: PREDNISONE5 M3 GT (19:52)
[2016-12-12] MEDS ORDERED: OMEPRAZOLE20 M2 GT (19:52)
[2016-12-12 19:54] LABS: INR 1.2 (0.9-1.1); PROTHROMBIN TIME 12.4 SEC (9.30-11.50)
[2016-12-12 20:00] VITALS: BP 108/77
[2016-12-12] MEDS ORDERED: METOPROLOL TART25 MG GT (20:00)
[2016-12-12] MEDS ORDERED: MILK OF MA400 MG/51 GT ×2 (20:01)
[2016-12-12] MEDS ORDERED: BUDESONIDE0.25 MG/2 IH (20:04)
[2016-12-12] MEDS ORDERED: TYLENOL650 MG/20. GT (20:07)
[2016-12-12] MEDS ORDERED: MIRALAX17 G2 GT (20:09)
[2016-12-12] MEDS ORDERED: CENTRUM MU9 MG/15 ML GT (20:12)
[2016-12-12] MEDS: NovoLOG Insulin Flexpen SUBQ SCH (21:00)
[2016-12-12] MEDS: Meropenem 1 GM in NS 110 ML IVPB SCH (21:21)
[2016-12-12] MEDS: Vancomycin 1gm in D5W 275ml IVPB SCH (21:21)
[2016-12-12] MEDS: Heparin 5000 units/ml inj SUBQ SCH (21:22)
[2016-12-13] VITALS: BP 116/78
[2016-12-13] MEDS ORDERED: Amikacin 1,000 MG in NS 110 ML IV SCH ×2
[2016-12-13 03:40] LABS: BASOPHILS % (AUTO) 1.6 % (0.0-2.0); EOSINOPHILS % (AUTO) 0.7 % (0.0-3.0); LYMPHOCYTES % (AUTO) 7.6 % (20.0-45.0); MEAN CORPUSCULAR HEMOGLOBIN 28.9 PG (27.0-31.0); MEAN CORPUSCULAR HGB CONC 32.1 G/DL (32.0-36.0); MEAN CORPUSCULAR VOLUME 90 FL (80-99); MONOCYTES % (AUTO) 6.7 % (1.0-10.0); NEUTROPHILS % (AUTO) 83.5 % (45.0-75.0); PLATELET COUNT 565 K/UL (150-450); RED CELL DISTRIBUTION WIDTH 17.6 % (11.6-14.8); WHITE BLOOD COUNT 14.5 K/UL (4.8-10.8)
[2016-12-13 03:55] LABS: ANION GAP 10 (5-15); CALCIUM 8.3 mg/dL (8.6-10.2); CARBON DIOXIDE 28 mEQ/L (20-30); CHLORIDE 97 mEQ/L (98-107); CREATININE 0.6 mg/dL (0.7-1.2); GLOMERULAR FILTRATION RATE > 60 mL/min (>60); HEMOLYSIS 3; PHOSPHORUS 3.8 mg/dL (2.5-4.8); POTASSIUM 4.2 mEQ/L (3.4-4.9); SODIUM 135 mEQ/L (135-145)
[2016-12-13 04:00] VITALS: BP 92/54
[2016-12-13] MEDS: DuoNeb 0.5-3(2.5)mg/3ml neb HHN PRN ×3 (05:03→17:09)
[2016-12-13] MEDS: Meropenem 1 GM in NS 110 ML IVPB SCH ×2 (05:04→15:28)
[2016-12-13] MEDS: NovoLOG Insulin Flexpen SUBQ SCH ×4 (05:41→20:08)
[2016-12-13 08:00] VITALS: BP 91/60
[2016-12-13] MEDS: Pantoprazole Inj IV SCH (09:30)
[2016-12-13] MEDS: Heparin 5000 units/ml inj SUBQ SCH ×2 (09:36→20:06)
[2016-12-13] MEDS ORDERED: Tubing IV Secondary IV ONE (09:50)
[2016-12-13] MEDS: Vancomycin 1gm in D5W 275ml IVPB SCH ×2 (10:20→21:00)
[2016-12-13] MEDS: Promethazine/Codeine 5ml UD ORAL PRN ×2 (10:56→16:52)
--- NOTE | 2016-12-13 11:02 | Diagnostic Imaging Report ---
Indication: SOB Technique: One view of the chest Comparison: 11/26/2016 Findings: Again demonstrated is extensive consolidation throughout the right lung. There is pleural thickening versus fluid which appears stable. The left lung is hyperinflated. A small 3 mm nodule is seen in the left midlung which was not evident previously. The left lung is otherwise clear. Tracheostomy remains. Impression: Persistent and largely unchanged right lung consolidation and associated pleural thickening or fluid, since 11/25/2016 Clear left lung. Small left midlung nodule, not evident previously, possibly artifactual or small area of atelectasis. Doubt significance as it is not evident on earlier studies.
--- NOTE | 2016-12-13 11:13 | Consultation ---
History of Present Illness General Date patient seen: Dec 13, 2016 Chief Complaint: Dyspnea/Respdistress Reason for Consultation: respiratory failure Present Illness HPI 66-year-old male with hx of chronic respiratory failure trach/vent/peg custodial resident presented to ED complaining of shortness of breath. His O2 sats were low. Upon arrival to his saturations are improved. he feels that his trach is blocked. Denies fevers chills. Denies chest pain. Denies cough. His cxr showed extensive right sided infiltrate and he was admitted to [facility]> Allergies: Coded Allergies: No Known Allergies (Unverified , 06/17/16) Medication History Scheduled Benzonatate* (Benzonatate*), 100 MG GT THREE TIMES A DAY, (Reported) Budesonide (Budesonide), 0.25 MG IH BID, (Reported) Cran/Vitc/Mannose/Inulin/Brom (Uti-Stat Liquid), 3,875 MG GT DAILY, (Reported) Folic Acid* (Folic Acid*), 1 MG GT DAILY, (Reported) Guaifenesin (Guaifenesin), 200 MG GT EVERY 12 HOURS, (Reported) Magnesium Hydroxide* (Milk Of Magnesia*), 30 ML GT BEDTIME, (Reported) Metoprolol Tartrate* (Metoprolol Tartrate*), 12.5 MG GT EVERY OTHER DAY, ( Reported) Multivits W-Min/Ferrous Gluc (Centrum Multivit-Mineral Liq), 9 MG GT DAILY, ( Reported) Omeprazole (Omeprazole), 20 MG GT DAILY, (Reported) Polyethylene Glycol 3350* (Miralax*), 17 GM GT BEDTIME, (Reported) Prednisone (Prednisone), 5 MG GT DAILY, (Reported) Vit C/Ascorbate Ca/Ascorb Sod (Vitamin C 500 Mg/15 Ml Liquid), 500 MG GT DAILY, (Reported) Scheduled PRN Acetaminophen (Acetaminophen), 650 MG GT Q4HR PRN for Fever/Headache/Mild Pain, (Reported) Bisacodyl (Dulcolax), 10 MG RC for Constipation, (Reported) Magnesium Hydroxide* (Milk Of Magnesia*), 30 ML GT for Constipation, (Reported) Na Phos,M-B/Na Phos,Di-Ba* (Fleet Enema*), 118 ML RECTAL for Constipation, ( Reported) Discontinued Medications Chlorhexidine Gluconate* (Hibiclens*), 1 APPLIC TOPIC DAILY Discontinued Reason: Pt stopped taking med Insulin Aspart (Novolog Flexpen), 0 UNITS SUBQ Q6HR Discontinued Reason: Pt stopped taking med Ipratropium [place] 0.5MG/2.5ML (Ipratropium [place] 0.5MG/2.5ML), 500 MCG HHN Q6HRT Discontinued Reason: Pt stopped taking med Levofloxacin* (Levaquin*), 500 MG ORAL DAILY Discontinued Reason: Therapy completed Polyethylene Glycol 3350* (Miralax*), 17 GM ORAL BEDTIME Discontinued Reason: Pt stopped taking med Patient History Healthcare decision maker Resuscitation status Full Code Advanced Directive on File Past Medical/Surgical History Past Medical/Surgical History: (1) Feeding by G-tube (2) Emphysema lung (3) Respiratory failure Review of Systems Respiratory: Reports: shortness of breath, sputum Physical Exam General Appearance: cachetic Lines, tubes and drains: peripheral HEENT: normocephalic, atraumatic Neck: non-tender, normal alignment Respiratory/Chest: chest wall non-tender, lungs clear Breasts: no masses Cardiovascular/Chest: normal peripheral pulses Abdomen: normal bowel sounds, non tender Genitourinary/Rectal: normal genital exam Extremities: normal range of motion Last 24 Hour Vital Signs Date Time Temp Pulse Resp B/P Pulse Ox O2 Delivery O2 Flow Rate FiO2 12/13/16 08:55 107 20 40 12/13/16 08:00 98.2 104 16 91/60 100 Mechanical Ventilator 40 12/13/16 07:06 96 16 40 12/13/16 05:20 113 21 Mechanical Ventilator 40 12/13/16 05:19 115 21 99 Mechanical Ventilator 40 12/13/16 05:19 40 12/13/16 05:18 113 21 99 Mechanical Ventilator 40 12/13/16 05:01 113 21 40 12/13/16 04:00 110 12/13/16 04:00 108 12/13/16 04:00 60 12/13/16 04:00 98.4 110 19 92/54 100 Mechanical Ventilator 12/13/16 04:00 60 12/13/16 02:44 116 19 40 12/13/16 00:50 114 22 40 12/13/16 00:00 60 12/13/16 00:00 100 12/13/16 00:00 97.9 118 16 116/78 100 Mechanical Ventilator 12/12/16 23:03 117 21 40 12/12/16 20:56 118 20 40 12/12/16 20:06 60 12/12/16 20:00 118 12/12/16 20:00 97.8 116 16 108/77 99 Mechanical Ventilator 12/12/16 20:00 60 12/12/16 19:22 97.9 116 21 97/68 100 Mechanical Ventilator 40 12/12/16 18:38 120 21 40 12/12/16 18:37 116 22 89/64 100 Mechanical Ventilator 40 12/12/16 17:35 118 22 40 12/12/16 17:35 118 22 Mechanical Ventilator 40 12/12/16 17:33 120 18 Mechanical Ventilator 40 12/12/16 17:03 97.9 120 18 109/84 100 Mechanical Ventilator Intake and Output 12/12/16 12/13/16 19:00 07:00 Intake Total 0 ml 1312.416 ml Output Total 875 ml Balance 0 ml 437.416 ml Intake Oral 0 ml IV Total 1312.416 ml Output Urine Total 875 ml Laboratory Tests Test 12/12/16 17:10 12/12/16 17:50 12/13/16 02:45 White Blood Count 16.1 K/UL (4.8-10.8) H 14.5 K/UL (4.8-10.8) H Red Blood Count 3.47 M/UL (4.70-6.10) L 3.00 M/UL (4.70-6.10) L Hemoglobin 10.3 G/DL (14.2-18.0) L 8.7 G/DL (14.2-18.0) L Hematocrit 30.9 % (42.0-52.0) L 27.0 % (42.0-52.0) L Mean Corpuscular Volume 89 FL (80-99) 90 FL (80-99) Mean Corpuscular Hemoglobin 29.8 PG (27.0-31.0) 28.9 PG (27.0-31.0) Mean Corpuscular Hemoglobin Concent 33.4 G/DL (32.0-36.0) 32.1 G/DL (32.0-36.0) Red Cell Distribution Width 17.8 % (11.6-14.8) H 17.6 % (11.6-14.8) H Platelet Count 469 K/UL (150-450) H 565 K/UL (150-450) H Mean Platelet Volume 6.2 FL (6.5-10.1) L 6.0 FL (6.5-10.1) L Neutrophils (%) (Auto) 83.9 % (45.0-75.0) H 83.5 % (45.0-75.0) H Lymphocytes (%) (Auto) 9.3 % (20.0-45.0) L 7.6 % (20.0-45.0) L Monocytes (%) (Auto) 4.7 % (1.0-10.0) 6.7 % (1.0-10.0) Eosinophils (%) (Auto) 0.4 % (0.0-3.0) 0.7 % (0.0-3.0) Basophils (%) (Auto) 1.6 % (0.0-2.0) 1.6 % (0.0-2.0) Prothrombin Time 12.4 SEC (9.30-11.50) H Prothromb Time International Ratio 1.2 (0.9-1.1) H Activated Partial Thromboplast Time 26 SEC (23-33) Sodium Level 130 mEQ/L (135-145) L 135 mEQ/L (135-145) Potassium Level 5.4 mEQ/L (3.4-4.9) H 4.2 mEQ/L (3.4-4.9) Chloride Level 89 mEQ/L (98-107) L 97 mEQ/L (98-107) L Carbon Dioxide Level 27 mEQ/L (20-30) 28 mEQ/L (20-30) Anion Gap 14 (5-15) 10 (5-15) Blood Urea Nitrogen 20 mg/dL (7-23) 15 mg/dL (7-23) Creatinine 0.8 mg/dL (0.7-1.2) 0.6 mg/dL (0.7-1.2) L Estimat Glomerular Filtration Rate > 60 mL/min (>60) > 60 mL/min (>60) Glucose Level 125 mg/dL (74-106) H 81 mg/dL (74-106) Lactic Acid Level 1.30 mmol/L (0.66-2.22) Calcium Level 8.9 mg/dL (8.6-10.2) 8.3 mg/dL (8.6-10.2) L Total Bilirubin 0.3 mg/dL (0.0-1.2) Aspartate Amino Transf (AST/SGOT) 23 U/L (5-40) Alanine Aminotransferase (ALT/SGPT) 15 U/L (3-41) Alkaline Phosphatase 150 U/L (40-129) H Total Creatine Kinase 22 U/L (38-174) L Creatine Kinase MB 1.7 ng/mL (< 6.7) Creatine Kinase MB Relative Index 7.7 Troponin I < 0.30 ng/mL (<=0.30) Pro-B-Type Natriuretic Peptide 1017 pg/mL (0-125) H Total Protein 7.7 g/dL (6.6-8.7) Albumin 2.4 g/dL (3.5-5.2) L 2.0 g/dL (3.5-5.2) L Globulin 5.3 g/dL Albumin/Globulin Ratio 0.4 (1.0-2.7) L Urine Color Yellow Urine Appearance Slightly cloudy Urine pH 7 (4.5-8.0) Urine Specific [place] 1.010 (1.005-1.035) Urine Protein 2+ (NEGATIVE) H Urine Glucose (UA) Negative (NEGATIVE) Urine Ketones Negative (NEGATIVE) Urine Occult Blood 5+ (NEGATIVE) H Urine Nitrite Negative (NEGATIVE) Urine Bilirubin Negative (NEGATIVE) Urine Urobilinogen Normal MG/DL (0.0-1.0) Urine Leukocyte Esterase 2+ (NEGATIVE) H Urine RBC 15-20 /HPF (0 - 0) H Urine WBC 5-10 /HPF (0 - 0) H Urine Squamous Epithelial Cells None /LPF (NONE/OCC) Urine Amorphous Sediment Few /LPF (NONE) H Urine Bacteria Many /HPF (NONE) H Phosphorus Level 3.8 mg/dL (2.5-4.8) Microbiology Date/Time Source Procedure Growth Status 12/12/16 17:50 Urine,Clean Catch Urine Culture - Preliminary Gram Negative Bacillus 1 Resulted Height (Feet): 5 Height (Inches): 9.00 Weight (Pounds): 130 Medications Current Medications Medications (Trade) Dose Ordered Sig/Shraddha Route PRN Reason Start Time Stop Time Status Last Admin Dose Admin Acetaminophen (Tylenol) 650 mg Q4H PRN ORAL FEVER 12/12/16 19:30 01/11/17 19:29 12/13/16 10:21 Albuterol/ Ipratropium (DuoNeb 0.5-3(2.5)mg/3ml) 3 ml Q4H PRN HHN Shortness of Breath 12/12/16 19:30 12/17/16 19:29 12/13/16 05:03 Amikacin Protocol (Amikacin pharmacy to dose) 1 ea DAILY PRN MISC Per rx protocol 12/12/16 19:30 01/11/17 19:29 Amikacin Sulfate/ Sodium Chloride (Amikin/Sodium Chloride) 114 ml @ 114 mls/hr Q36H IV 12/13/16 00:00 12/20/16 00:00 12/13/16 00:44 Dextrose STAT PRN IV Hypoglycemia 12/12/16 19:30 01/11/17 19:29 Heparin Sodium (Porcine) (Heparin 5000 units/ml) 5,000 units EVERY 12 HOURS SUBQ 12/12/16 21:00 01/11/17 20:59 12/13/16 09:36 Insulin Aspart (NovoLOG) BEFORE MEALS AND HS SUBQ 12/12/16 21:00 01/11/17 20:59 Lorazepam (Ativan 2mg/ml 1ml) 2 mg Q2H PRN IV For Anxiety 12/12/16 19:30 12/19/16 19:29 Meropenem/Sodium Chloride (Merrem/Sodium Chloride) 110 ml @ 220 mls/hr Q8HR IVPB 12/12/16 22:00 12/13/16 21:59 12/13/16 05:04 Morphine Sulfate (Morphine Sulfate) 4 mg Q4H PRN IVP Severe Pain (Pain Scale 7-10) 12/12/16 19:30 12/19/16 19:29 Ondansetron HCl (Zofran) 4 mg Q6H PRN IVP Nausea & Vomiting 12/12/16 19:30 01/11/17 19:29 Pantoprazole 40 mg 40 mg DAILY IV 12/13/16 09:00 01/12/17 08:59 12/13/16 09:30 Polyethylene Glycol (Miralax) 17 gm DAILYPRN PRN ORAL Constipation 12/12/16 19:30 01/11/17 19:29 Promethazine HCl/ Codeine (Phenergan with Codeine) 5 ml Q4H PRN ORAL For Cough 12/13/16 10:30 01/12/17 10:29 Sodium Chloride 1,000 ml @ 75 mls/hr [id number] IV 12/12/16 19:30 01/11/17 19:29 12/13/16 09:36 Vancomycin HCl (Vanco rx to dose) 1 ea DAILY PRN MISC Per rx protocol 12/12/16 19:30 01/11/17 19:29 Vancomycin HCl 1 gm/Dextrose 275 ml @ 183.708 mls/hr Q12HR@1000,2200 IVPB 12/12/16 22:00 12/17/16 21:59 12/13/16 10:20 Assessment/Plan Problem List: (1) Acute and chronic respiratory failure ICD Codes: J96.20 - Acute and chronic respiratory failure, unspecified whether with hypoxia or hypercapnia SNOMED: 68728129, 96390206 (2) Feeding by G-tube ICD Codes: Z93.1 - Gastrostomy status SNOMED: 018948174, 025597625 (3) Emphysema lung ICD Codes: J43.9 - Emphysema, unspecified SNOMED: 34368392 (4) Pleural effusion on right ICD Codes: J90 - Pleural effusion, not elsewhere classified SNOMED: 44084896 Respiratory: monitor respiratory rate, adjust FIO2 Cardiac: continue to monitor HR/BP Renal: F/U I&O, keep IV fluid, check electrolytes Infectious Disease: check cultures, continue antibiotics Gastrointestinal: continue feedings/current rate Endocrine: check TSH, continue sliding scale insulin Hematologic: monitor H/H, transfuse if hgb<8.5 Neurologic: PRN Ativan, PRN Morphine, keep patient comfortable Affect: PRN ativan Prophylaxis: Protonix, Heparin Notes Reviewed: sas statistical programmer, renal 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, consultants, case resource manager REN WRIGHT Dec 13, 2016 11:13
[2016-12-13 12:00] VITALS: BP 92/59
--- NOTE | 2016-12-13 12:03 | Wound Care Consultation ---
Wound Assessment Wound Assessment #1: Wound Present on Admission: Yes New Wound: No Status Change of Wound: No Wound Location Body Site Modif: mid Wound Location Body Site: sacral Wound Type: pressure ulcer Nisha Test: Does not Nisha Pressure Ulcer Stage: II - scattered Wound Thickness: Partial Thickness Wound Length: 3.5 Wound Width: 3.5 Wound Depth: 0.1 Percent of Wound [place]/Red: 100 Wound Drainage Description: Serosanguineous Wound Drainage Amount: Scant Wound Drainage Odor: None/Absent Tissue Surrounding Wound: Erythemic Wound General Appearance: Reddened - scattered stage II pressure ulcers Wound Assessment #2: Wound Number: #2 Wound Present on Admission: Yes New Wound: No Status Change of Wound: No Wound Location Body Site: perineal area Wound Type: chemical burn - with erosion Wound Thickness: Partial Thickness - scattered erosion with partial thickness skin loss Wound Drainage Amount: None Wound Drainage Odor: None/Absent Tissue Surrounding Wound: Erythemic Wound General Appearance: Reddened Wound Comment #1 Sacral scattered small stage II Pressure ulcers #2 Chemical burn with erosion on perineal area Recommendation -Sacral Scattered stage II pressure ulcers Cleanse with saline, pat dry, apply Triad cream, cover with bordered gauze daily and PRN soiled/dislodged -Chemical burn with erosion Cleanse with saline, pat dry, apply [place]ad cream, cover with bordered gauze daily and PRN soiled/dislodged -Keep clean and dry -Low air loss mattress -Turn and reposition -Optimize nutrition -Offload both heels -Assess and f/u accordingly for any changes CARRILLO HARRISON RN Dec 13, 2016 12:03
--- NOTE | 2016-12-13 15:34 | Diagnostic Imaging Report ---
Indication: SOB, status post thoracentesis Technique: One view of the chest Comparison: 12/12/2016 Findings: Interim slight decrease in amount of pleural opacity as compared to prior study. No pneumothorax. Fairly extensive infiltrate throughout the right lung persists, may be slightly worse. Left lung and pleural space remain clear.. Left lung remains hyperinflated Heart size is normal. Tracheostomy is again demonstrated Impression: Slightly increased pleural opacity as compared to previous day's exam, consistent with interim thoracentesis. No radiographically evident complication Other stable findings as described Persistent and extensive right-sided parenchymal disease, stable to slightly worse
[2016-12-13 16:00] VITALS: BP 90/57
--- NOTE | 2016-12-13 19:44 | History & Physical ---
History and Physical History & Physicial Dictated for Int Med-Dr Rader no. [id number]. TADEO VERDIN Dec 13, 2016 19:44
[2016-12-13 20:00] VITALS: BP 90/89
--- NOTE | 2016-12-13 22:25 | Consultation ---
Consult Note Consult Note ID CONSULT: Roula# [id number] Assessment/Plan ASSESSMENT: 66 y/o male with: // Probable recurrent HCAP / VAP r/o empyema - SCx pending - CXR 12/13: Fairly extensive infiltrate throughout the right lung persists, may be slightly worse. Left lung and pleural space remain clear - h/o MDR ACB, PSA - CT 11/14 :Extensive pneumonia involving both lungs as described above. 5-6 cm cavitary focus suspicious for lung abscess in the right upper lobe. // Recurrent pleural effusion r/o empyema, malignant - SP thoracentesis 12/13 - pleural fluid Cx pending - SP thoracentesis 11/21 neg empyema // Recurrent GNR UTI - C&S pending - h/o yeast, VRE // Leukocytosis - improved, afebrile ( DVT, probable CA contributing ) // HIV and Hep B/C : neg // Colon mass, elevated CEA ro cancer CT: Large cecal mass and other polypoid colonic masses, detailed previously , again demonstrated // Acute on chronic VDRF SP trach, PEG - h/o COPD // Severe pulmonary HTN / grade I diastolic dysfunction / mod TR // Pulmonary nodules // h/o chronic RLE DVT - repeat doppler neg // Thrombocytosis // [place] resident // NKDA // Full Code PLAN: - continue empiric IV vancomycin, amikacin d# 1 - f/u cultures - monitor CBC, temperatures - monitor BMP - monitor CXR - vent support, trach care, aspiration precautions Thanks! Will follow NAOMI GEORGE Dec 13, 2016 22:25
--- NOTE | 2016-12-13 23:00 | History and Physical Report ---
DATE OF ADMISSION: 12/12/2016 CHIEF COMPLAINT: The patient is a 66-year-old male who has a trach collar in place, who presents with a chief complaint of shortness of breath and hypoxia. HISTORY OF PRESENT ILLNESS: The patient was admitted to [facility] from 09/20/2016 to 11/29/2016. The patient was discharged to [facility]. According to staff at [facility], the patient began to experience shortness of breath on 12/12/2016. This increased over the course of the day. Oxygen saturation dropped to the 80s. The patient was transported to [place] emergency room. The patient was found to have hypoxia. The patient was admitted for shortness of breath to rule out pneumonia. REVIEW OF SYSTEMS: Constitutional: The patient denies weight loss or weight gain. The patient denies fevers or chills. HEENT: The patient denies ear or throat pain. Cardiovascular: The patient complains of palpitations. The patient denies chest pain. Chest: The patient complains of shortness of breath. Abdominal: The patient denies nausea, vomiting, diarrhea, or constipation. Genitourinary: The patient denies dysuria or increased frequency of urination. Neuromuscular: The patient denies seizures or generalized weakness. PAST MEDICAL HISTORY: Significant for, 1. Chronic respiratory failure with vent dependence. 2. Chronic obstructive pulmonary disease. 3. History of right lower extremity deep venous thrombosis. 4. Hypertension. 5. Diabetes. PAST SURGICAL HISTORY: Significant for, 1. Tracheostomy on 12/04/2016. 2. PEG placement. CURRENT MEDICATIONS: 1. Tylenol 650 mg per G-tube q.4 h. 2. Budesonide 0.25 mg inhaled twice daily. 3. Cranberry tablets per G-tube daily. 4. Folic acid 1 mg per G-tube daily. 5. Metoprolol 12.5 mg per G-tube every other day. 6. Multivitamin with iron daily. 7. Omeprazole 20 mg per G-tube daily. 8. MiraLax 17 g per G-tube at bedtime. 9. Prednisone 5 mg per G-tube daily. 10. Vitamin C per G-tube daily. ALLERGIES: No known drug allergies. SOCIAL HISTORY: The patient is single. He is a resident of [facility]. The patient is a previous smoker. The patient denies alcohol use. PHYSICAL EXAMINATION: VITAL SIGNS: Temperature 98.2, respirations 20, pulse 105, and blood pressure 90/57. GENERAL: The patient is a thin-appearing, male, who is currently intubated and sedated. HEENT: Eyes, pupils are equal and responsive to light and accommodation. Extraocular movements are intact. NECK: Supple. No lymphadenopathy. CHEST: Few wheezes in bilateral lung pereira with crackles at bilateral bases, otherwise, without wheezes or rales. CARDIOVASCULAR: Tachycardic. Regular rhythm with S1 and S2 normal without murmurs, rubs, or gallops. ABDOMEN: Soft, nontender, and nondistended. Positive bowel sounds. No evidence of hepatosplenomegaly. Currently no rebound or guarding noted. EXTREMITIES: No clubbing, cyanosis, or edema. RECTAL AND GENITAL: Refused. NEUROLOGIC: Cranial nerves II through XII are grossly intact without focal deficits. Motor strength is 5/5 bilaterally. Deep tendon reflexes are 2+ plantar. LABORATORY AND DIAGNOSTIC DATA: WBC 16.1, hemoglobin 10.3, hematocrit 30.9, and platelets 469,000. Sodium 138, potassium 5.4, chloride 89, CO2 27, BUN 20, creatinine 0.8, glucose 125. Troponin less than 0.3 and BNP elevated 1017. Chest x-ray was reported as right lung opacity. ASSESSMENT: This is a 66-year-old male with, 1. Right-sided pneumonia. 2. Shortness of breath. 3. Tachycardia. 4. Respiratory failure, acute on chronic. 5. Hypertension. 6. Diabetes type 2. 7. Deep venous thrombosis of the right lower extremity. TREATMENT: 1. Pneumonia. An Infectious Disease consultation is pending with Dr. Trujillo. A Pulmonary consultation is pending with Dr. Demetrius Andrade. The patient is currently on amikacin, meropenem, and vancomycin. Sputum cultures are pending. We will follow recommendation of Infectious Disease. 2. Shortness of breath/chronic obstructive pulmonary disease. As above, a Pulmonary consultation will be obtained with Dr. Andrade. 3. Tachycardia. This may be secondary to sepsis. 4. Respiratory failure. The patient previously has been on ventilator. The patient is currently on a ventilator. We will follow recommendations of Pulmonary. 5. Hypertension. The patient is currently hypotensive. 6. Diabetes type 2. NovoLog sliding scale has been instituted. 7. Deep venous thrombosis of the right lower extremity, chronic. Goyo Tsang M.D. DR: NINA JOB#: [id number] CC:
[2016-12-14] VITALS: BP 92/69
[2016-12-14] MEDS ORDERED: Amikacin 1,000 MG in NS 110 ML IV SCH ×2
--- NOTE | 2016-12-14 00:45 | Consultation ---
DATE OF CONSULTATION: 12/13/2016 INFECTIOUS DISEASE CONSULTATION CONSULTING PHYSICIAN: Mendez Koo M.D. REQUESTING PHYSICIAN: Steve Rader M.D. REASON FOR CONSULTATION: Recurrent pneumonia. HISTORY OF PRESENT ILLNESS: This is a 66-year-old male, [facility] resident, admitted with shortness of breath. Chest x-ray shows severe right-sided disease, associated leukocytosis, but no fevers, and also evidence of gram-negative ana urinary tract infection. The patient underwent bedside ultrasound-guided thoracentesis for which fluid analysis is pending. He has been started on empiric IV vancomycin and amikacin and ID now consulted to assist in management. PAST MEDICAL HISTORY: 1. Chronic obstructive pulmonary disease. 2. Chronic right lower extremity DVT. 3. Pulmonary nodules. 4. Chronic anemia. 5. Recurrent multi-drug resistant pneumonias. 6. Recurrent pleural effusion. 7. Recurrent UTIs. 8. Colon mass and elevated CEA, rule out cancer. 9. Chronic ventilator-dependent respiratory failure. 10. Severe pulmonary hypertension. PAST SURGICAL HISTORY: 1. Tracheostomy placement. 2. PEG tube placement. MEDICATIONS: 1. Vancomycin. 2. Amikacin. 3. Protonix. 4. Subcutaneous heparin. ALLERGIES: No known drug allergies. SOCIAL HISTORY: The patient is a resident of a [facility]. He has a history of tobacco use, but no active tobacco, alcohol, or illicit drug abuse. FAMILY HISTORY: Noncontributory. REVIEW OF SYSTEMS: Unable to obtain. PHYSICAL EXAM: VITAL SIGNS: Maximum temperature of 98.2, blood pressure 90/57, heart rate in the 80s, respiratory rate 16, and saturating 100% on 40% FiO2. GENERAL: No apparent distress. Nontoxic appearing. HEENT: Tracheostomy tube in place. CARDIOVASCULAR: Regular rate and rhythm. No murmurs. PULMONARY: Decreased breath sounds. GASTROINTESTINAL: Bowel sounds present. Soft, nondistended, and nontender. PEG tube in place. EXTREMITIES: Edema. LABORATORY DATA: White blood cell count 14.5, decreased from 16.1, hemoglobin 8.7, and platelets 565,000. Sodium 135, potassium 4.2, chloride 97, bicarbonate 28, BUN 15, and creatinine 0.6. INR 1.2. Lactic acid 1.3. AST 23, ALT 15, and alkaline phosphatase 150. Total bilirubin 0.3. Albumin 2.4. Troponin negative x1. MICROBIOLOGY: 1. On 12/12/2016, urine culture greater than 100,000 colony-forming units of gram-negative rods. 2. On 12/12/2016, blood culture pending. 3. On 12/13/2016, pleural fluid culture pending. 4. On 12/12/2016, sputum culture pending. IMAGIN. On 12/13/2016, fairly extensive infiltrate throughout the right lung persists, may be slightly worse. Left lung and pleural spaces remain clear. 2. On 12/13/2016, bilateral lower extremity Doppler ultrasound negative for DVT. ASSESSMENT: 1. Probable recurrent healthcare-associated/ventilator-associated pneumonia, rule out empyema. Sputum culture is pending. Chest x-ray shows fairly extensive infiltrate throughout the right lung. He has a history of growth of multi-drug resistant Acinetobacter and Pseudomonas aeruginosa. 2. Recurrent pleural effusion, rule out empyema or malignant effusion. Status post repeat thoracentesis today. Pleural fluid culture and fluid analysis is pending. 3. Recurrent gram-negative ana urinary tract infection. Culture and sensitivity is pending. 4. History of growth of yeast and vancomycin-resistant enterococcus. 5. Leukocytosis, improved and afebrile. Probable cancer is contributing. 6. Colon mass and elevated CEA and probable cancer. 7. Chronic ventilator-dependent respiratory failure, status post tracheostomy and percutaneous endoscopic gastrostomy. 8. Severe pulmonary hypertension/grade 1 diastolic dysfunction/moderate tricuspid regurgitation. 9. Chronic right lower extremity deep venous thrombosis, not seen on repeat Doppler ultrasound. 10. Thrombocytosis. 11. long term resident. 12. No known drug allergies. 13. Full Code. PLAN: 1. Continue empiric IV vancomycin and amikacin day #1. 2. Follow up cultures. 3. Monitor CBC and temperatures. 4. Monitor BMP. 5. Monitor chest x-ray. 6. Ventilator support, tracheostomy care, and aspiration precautions. Thank you. We will follow. Mendez Koo M.D. DR: BRIDGET JOB#: [id number] CC: Steve Rader M.D.; Fax#: [phone] Smith, M.D. Anibal Trujillo M.D; Fax#: [phone]
[2016-12-14] MEDS: Promethazine/Codeine 5ml UD ORAL PRN ×3 (03:25→21:43)
[2016-12-14 04:00] VITALS: BP 96/64
[2016-12-14 05:58] LABS: MEAN CORPUSCULAR HEMOGLOBIN 29.1 PG (27.0-31.0); MEAN CORPUSCULAR HGB CONC 32.1 G/DL (32.0-36.0); MEAN CORPUSCULAR VOLUME 91 FL (80-99); MEAN PLATELET VOLUME 5.8 FL (6.5-10.1); PLATELET COUNT 456 K/UL (150-450); RED BLOOD COUNT 2.49 M/UL (4.70-6.10); RED CELL DISTRIBUTION WIDTH 17.4 % (11.6-14.8)
[2016-12-14 06:24] LABS: INR 1.2 (0.9-1.1); PROTHROMBIN TIME 12.9 SEC (9.30-11.50)
[2016-12-14] MEDS: NovoLOG Insulin Flexpen SUBQ SCH ×4 (06:28→20:27)
[2016-12-14 08:00] VITALS: BP 137/69
[2016-12-14 08:06] LABS: ERYTHROCYTE SEDIMENTATION RATE 96 MM/HR (0-20)
[2016-12-14] MEDS: Pantoprazole Inj IV SCH (09:32)
[2016-12-14] MEDS: Heparin 5000 units/ml inj SUBQ SCH ×2 (09:44→20:26)
[2016-12-14 09:51] LABS: RETICULOCYTE COUNT 2.2 % (0.0-2.0)
[2016-12-14 10:47] LABS: MEAN CORPUSCULAR HEMOGLOBIN 29.6 PG (27.0-31.0); MEAN CORPUSCULAR HGB CONC 32.3 G/DL (32.0-36.0); MEAN CORPUSCULAR VOLUME 92 FL (80-99); MEAN PLATELET VOLUME 5.6 FL (6.5-10.1); PLATELET COUNT 411 K/UL (150-450); RED BLOOD COUNT 2.65 M/UL (4.70-6.10); RED CELL DISTRIBUTION WIDTH 17.4 % (11.6-14.8); WHITE BLOOD COUNT 13.3 K/UL (4.8-10.8)
[2016-12-14 11:35] VITALS: BP 93/71
[2016-12-14 11:35] LABS: BAND NEUTROPHILS % (MANUAL) 0 % (0-8); BASOPHILS % (MANUAL) 0 % (0-2); EOSINOPHILS % (MANUAL) 2 % (0-3); HYPOCHROMASIA 1+; LYMPHOCYTES % (MANUAL) 8 % (20-45); NEUTROPHILS % (MANUAL) 85 % (45-75); PLATELET ESTIMATE ADEQUATE; PLATELET MORPHOLOGY NORMAL; TOTAL CELLS COUNTED 100
[2016-12-14 11:36] LABS: ANISOCYTOSIS 1+
[2016-12-14 11:38] LABS: BAND NEUTROPHILS % (MANUAL) 0 % (0-8); BASOPHILS % (MANUAL) 0 % (0-2); EOSINOPHILS % (MANUAL) 4 % (0-3); HYPOCHROMASIA 1+; LYMPHOCYTES % (MANUAL) 11 % (20-45); NEUTROPHILS % (MANUAL) 79 % (45-75); PLATELET ESTIMATE ADEQUATE; PLATELET MORPHOLOGY NORMAL
[2016-12-14 11:39] LABS: ANISOCYTOSIS 1+; PATH BLOOD SMEAR/OMC SENT TO PATHOLOGIST
[2016-12-14] MEDS: Vancomycin 1gm in D5W 275ml IVPB SCH (11:50)
--- NOTE | 2016-12-14 15:22 | Cardiac Electrophysiology PN ---
Subjective Subjective [id number] Objective Last 24 Hour Vital Signs Date Time Temp Pulse Resp B/P Pulse Ox O2 Delivery O2 Flow Rate FiO2 12/14/16 13:06 110 20 40 12/14/16 12:00 40 12/14/16 11:54 74 12/14/16 11:35 98.4 78 16 93/71 100 Mechanical Ventilator 40 12/14/16 10:43 81 16 40 12/14/16 08:43 95 16 40 12/14/16 08:00 97.5 92 16 137/69 100 Mechanical Ventilator 40 12/14/16 08:00 40 12/14/16 07:55 93 12/14/16 07:19 93 16 40 12/14/16 05:00 86 16 40 12/14/16 04:00 91 12/14/16 04:00 98.7 94 20 96/64 100 Mechanical Ventilator 40 12/14/16 04:00 40 12/14/16 03:18 91 16 40 12/14/16 01:22 86 16 40 12/14/16 00:00 98.8 100 18 92/69 100 Mechanical Ventilator 40 12/14/16 00:00 81 12/14/16 00:00 40 12/13/16 23:25 81 16 40 12/13/16 22:51 98.7 12/13/16 22:51 97.8 12/13/16 21:52 99.1 12/13/16 21:18 85 16 40 12/13/16 20:00 95 12/13/16 20:00 40 12/13/16 20:00 99.0 97 18 90/89 100 Mechanical Ventilator 40 12/13/16 18:56 108 18 40 12/13/16 17:19 106 18 100 Mechanical Ventilator 12/13/16 17:09 106 18 100 Mechanical Ventilator 40 12/13/16 16:58 106 18 40 12/13/16 16:00 40 12/13/16 16:00 98.2 105 20 90/57 100 Mechanical Ventilator 40 12/13/16 15:40 104 12/13/16 15:24 101 21 40 Intake and Output 12/13/16 12/14/16 19:00 07:00 Intake Total 1419.500 ml 1623.7 ml Output Total 450 ml 450 ml Balance 969.500 ml 1173.7 ml Intake Oral 360 ml Free Water 100 ml IV Total 1059.500 ml 1083.7 ml Tube Feeding 440 ml Output Urine Total 450 ml 450 ml # Bowel Movements 3 Laboratory Tests Test 12/14/16 04:20 12/14/16 09:00 White Blood Count 11.0 K/UL (4.8-10.8) H 13.3 K/UL (4.8-10.8) H Red Blood Count 2.49 M/UL (4.70-6.10) L 2.65 M/UL (4.70-6.10) L Hemoglobin 7.3 G/DL (14.2-18.0) L 7.8 G/DL (14.2-18.0) L Hematocrit 22.6 % (42.0-52.0) L 24.3 % (42.0-52.0) L Mean Corpuscular Volume 91 FL (80-99) 92 FL (80-99) Mean Corpuscular Hemoglobin 29.1 PG (27.0-31.0) 29.6 PG (27.0-31.0) Mean Corpuscular Hemoglobin Concent 32.1 G/DL (32.0-36.0) 32.3 G/DL (32.0-36.0) Red Cell Distribution Width 17.4 % (11.6-14.8) H 17.4 % (11.6-14.8) H Platelet Count 456 K/UL (150-450) H 411 K/UL (150-450) Mean Platelet Volume 5.8 FL (6.5-10.1) L 5.6 FL (6.5-10.1) L Neutrophils (%) (Auto) % (45.0-75.0) % (45.0-75.0) Lymphocytes (%) (Auto) % (20.0-45.0) % (20.0-45.0) Monocytes (%) (Auto) % (1.0-10.0) % (1.0-10.0) Eosinophils (%) (Auto) % (0.0-3.0) % (0.0-3.0) Basophils (%) (Auto) % (0.0-2.0) % (0.0-2.0) Neutrophils % (Manual) 79 % (45-75) H 85 % (45-75) H Lymphocytes % (Manual) 11 % (20-45) L 8 % (20-45) L Monocytes % (Manual) 6 % (1-10) 5 % (1-10) Eosinophils % (Manual) 4 % (0-3) H 2 % (0-3) Basophils % (Manual) 0 % (0-2) 0 % (0-2) Band Neutrophils 0 % (0-8) 0 % (0-8) Platelet Estimate Adequate Adequate Platelet Morphology Normal Normal Hypochromasia 1+ 1+ Anisocytosis 1+ 1+ Erythrocyte Sedimentation Rate 96 MM/HR (0-20) H Reticulocyte Count 2.2 % (0.0-2.0) H Prothrombin Time 12.9 SEC (9.30-11.50) H Prothromb Time International Ratio 1.2 (0.9-1.1) H Activated Partial Thromboplast Time 35 SEC (23-33) H Iron Level 19 ug/dL (59-158) L Total Iron Binding Capacity 142 ug/dL (250-400) L Percent Iron Saturation 13 % (15-50) L Unsaturated Iron Binding 123 ug/dL (112-346) Lactate Dehydrogenase 138 U/L (135-230) Carcinoembryonic Antigen 4.5 ng/mL H Vitamin B12 Level 1255 pg/mL (211-946) H Folate Pending Differential Total Cells Counted 100 Vancomycin Level Trough 16.0 ug/mL (5.0-12.0) H Microbiology Date/Time Source Procedure Growth Status 12/12/16 17:23 Blood Blood Culture - Preliminary NO GROWTH AFTER 24 HOURS Resulted 12/12/16 17:10 Blood Blood Culture - Preliminary NO GROWTH AFTER 24 HOURS Resulted 12/12/16 17:50 Nasal Nares MRSA Culture - Final NO METHICILLIN RESISTANT STAPH AUREUS... Complete 12/12/16 17:50 Urine,Clean Catch Urine Culture - Preliminary Acinetobacter Baumannii Complx Resulted 12/12/16 17:50 Rectum VRE Culture - Final Enterococcus Faecium - Vre Complete [place] Dec 14, 2016 15:22
--- NOTE | 2016-12-14 16:38 | Infectious Diseases Prog Note ---
Assessment/Plan Assessment/Plan ASSESSMENT: 66 y/o male with: // Probable recurrent HCAP / VAP r/o empyema - SCx pending - CXR 12/13: Fairly extensive infiltrate throughout the right lung persists, may be slightly worse. Left lung and pleural space remain clear - h/o MDR ACB, PSA - CT 11/14 :Extensive pneumonia involving both lungs as described above. 5-6 cm cavitary focus suspicious for lung abscess in the right upper lobe. // Recurrent pleural effusion r/o empyema, malignant - SP thoracentesis 12/13 - pleural fluid Cx pending - SP thoracentesis 11/21 neg empyema // Recurrent MDR-ACB UTI - h/o yeast, VRE // Leukocytosis - improved overall, afebrile ( DVT, probable CA contributing ) // HIV and Hep B/C : neg // Colon mass, elevated CEA ro cancer CT: Large cecal mass and other polypoid colonic masses, detailed previously , again demonstrated // Acute on chronic VDRF SP trach, PEG - h/o COPD // Severe pulmonary HTN / grade I diastolic dysfunction / mod TR // Pulmonary nodules // h/o chronic RLE DVT - repeat doppler neg // Thrombocytosis // [place] resident // MDRO colonized // NKDA // Full Code PLAN: - change empiric IV vancomycin, amikacin d# 2 to tygacil d# 1 based on cultures - f/u cultures - monitor CBC, temperatures - monitor BMP - monitor CXR - vent support, trach care, aspiration precautions Subjective Allergies: Coded Allergies: No Known Allergies (Unverified , 06/17/16) Subjective remains afebrile on vent cultures noted Objective Vital Signs Last 24 Hour Vital Signs Date Time Temp Pulse Resp B/P Pulse Ox O2 Delivery O2 Flow Rate FiO2 12/14/16 14:52 85 16 40 12/14/16 13:06 110 20 40 12/14/16 12:00 40 12/14/16 11:54 74 12/14/16 11:35 98.4 78 16 93/71 100 Mechanical Ventilator 40 12/14/16 10:43 81 16 40 12/14/16 08:43 95 16 40 12/14/16 08:00 97.5 92 16 137/69 100 Mechanical Ventilator 40 12/14/16 08:00 40 12/14/16 07:55 93 12/14/16 07:19 93 16 40 12/14/16 05:00 86 16 40 12/14/16 04:00 91 12/14/16 04:00 98.7 94 20 96/64 100 Mechanical Ventilator 40 12/14/16 04:00 40 12/14/16 03:18 91 16 40 12/14/16 01:22 86 16 40 12/14/16 00:00 98.8 100 18 92/69 100 Mechanical Ventilator 40 12/14/16 00:00 81 12/14/16 00:00 40 12/13/16 23:25 81 16 40 12/13/16 22:51 98.7 12/13/16 22:51 97.8 12/13/16 21:52 99.1 12/13/16 21:18 85 16 40 12/13/16 20:00 95 12/13/16 20:00 40 12/13/16 20:00 99.0 97 18 90/89 100 Mechanical Ventilator 40 12/13/16 18:56 108 18 40 12/13/16 17:19 106 18 100 Mechanical Ventilator 12/13/16 17:09 106 18 100 Mechanical Ventilator 40 12/13/16 16:58 106 18 40 Height (Feet): 5 Height (Inches): 9.00 Weight (Pounds): 130 General Appearance: no acute distress HEENT: status post trach Respiratory/Chest: decreased breath sounds Cardiovascular: normal rate, regular rhythm Abdomen: normal bowel sounds, soft, non tender, non distended Microbiology Date/Time Source Procedure Growth Status 12/12/16 17:23 Blood Blood Culture - Preliminary NO GROWTH AFTER 24 HOURS Resulted 12/12/16 17:10 Blood Blood Culture - Preliminary NO GROWTH AFTER 24 HOURS Resulted 12/12/16 17:50 Nasal Nares MRSA Culture - Final NO METHICILLIN RESISTANT STAPH AUREUS... Complete 12/12/16 17:50 Urine,Clean Catch Urine Culture - Preliminary Acinetobacter Baumannii Complx Resulted 12/12/16 17:50 Rectum VRE Culture - Final Enterococcus Faecium - Vre Complete Laboratory Tests Test 12/14/16 04:20 12/14/16 09:00 White Blood Count 11.0 K/UL (4.8-10.8) H 13.3 K/UL (4.8-10.8) H Red Blood Count 2.49 M/UL (4.70-6.10) L 2.65 M/UL (4.70-6.10) L Hemoglobin 7.3 G/DL (14.2-18.0) L 7.8 G/DL (14.2-18.0) L Hematocrit 22.6 % (42.0-52.0) L 24.3 % (42.0-52.0) L Mean Corpuscular Volume 91 FL (80-99) 92 FL (80-99) Mean Corpuscular Hemoglobin 29.1 PG (27.0-31.0) 29.6 PG (27.0-31.0) Mean Corpuscular Hemoglobin Concent 32.1 G/DL (32.0-36.0) 32.3 G/DL (32.0-36.0) Red Cell Distribution Width 17.4 % (11.6-14.8) H 17.4 % (11.6-14.8) H Platelet Count 456 K/UL (150-450) H 411 K/UL (150-450) Mean Platelet Volume 5.8 FL (6.5-10.1) L 5.6 FL (6.5-10.1) L Neutrophils (%) (Auto) % (45.0-75.0) % (45.0-75.0) Lymphocytes (%) (Auto) % (20.0-45.0) % (20.0-45.0) Monocytes (%) (Auto) % (1.0-10.0) % (1.0-10.0) Eosinophils (%) (Auto) % (0.0-3.0) % (0.0-3.0) Basophils (%) (Auto) % (0.0-2.0) % (0.0-2.0) Neutrophils % (Manual) 79 % (45-75) H 85 % (45-75) H Lymphocytes % (Manual) 11 % (20-45) L 8 % (20-45) L Monocytes % (Manual) 6 % (1-10) 5 % (1-10) Eosinophils % (Manual) 4 % (0-3) H 2 % (0-3) Basophils % (Manual) 0 % (0-2) 0 % (0-2) Band Neutrophils 0 % (0-8) 0 % (0-8) Platelet Estimate Adequate Adequate Platelet Morphology Normal Normal Hypochromasia 1+ 1+ Anisocytosis 1+ 1+ Erythrocyte Sedimentation Rate 96 MM/HR (0-20) H Reticulocyte Count 2.2 % (0.0-2.0) H Prothrombin Time 12.9 SEC (9.30-11.50) H Prothromb Time International Ratio 1.2 (0.9-1.1) H Activated Partial Thromboplast Time 35 SEC (23-33) H Iron Level 19 ug/dL (59-158) L Total Iron Binding Capacity 142 ug/dL (250-400) L Percent Iron Saturation 13 % (15-50) L Unsaturated Iron Binding 123 ug/dL (112-346) Lactate Dehydrogenase 138 U/L (135-230) Carcinoembryonic Antigen 4.5 ng/mL H Vitamin B12 Level 1255 pg/mL (211-946) H Folate Pending Differential Total Cells Counted 100 Vancomycin Level Trough 16.0 ug/mL (5.0-12.0) H Current Medications Medications (Trade) Dose Ordered Sig/Shraddha Route PRN Reason Start Time Stop Time Status Last Admin Dose Admin Acetaminophen (Tylenol) 650 mg Q4H PRN ORAL FEVER 12/12/16 19:30 01/11/17 19:29 12/13/16 21:52 Albuterol/ Ipratropium (DuoNeb 0.5-3(2.5)mg/3ml) 3 ml Q4H PRN HHN Shortness of Breath 12/12/16 19:30 12/17/16 19:29 12/13/16 17:09 Amikacin Protocol (Amikacin pharmacy to dose) 1 ea DAILY PRN MISC Per rx protocol 12/12/16 19:30 01/11/17 19:29 Amikacin Sulfate/ Sodium Chloride (Amikin/Sodium Chloride) 114 ml @ 220 mls/hr Q24H IV 12/14/16 00:00 12/21/16 00:00 12/13/16 23:17 Dextrose STAT PRN IV Hypoglycemia 12/12/16 19:30 01/11/17 19:29 Heparin Sodium (Porcine) (Heparin 5000 units/ml) 5,000 units EVERY 12 HOURS SUBQ 12/12/16 21:00 01/11/17 20:59 12/14/16 09:44 Insulin Aspart (NovoLOG) BEFORE MEALS AND HS SUBQ 12/12/16 21:00 01/11/17 20:59 12/14/16 06:28 Lorazepam (Ativan 2mg/ml 1ml) 2 mg Q2H PRN IV For Anxiety 12/12/16 19:30 12/19/16 19:29 Morphine Sulfate (Morphine Sulfate) 4 mg Q4H PRN IVP Severe Pain (Pain Scale 7-10) 12/12/16 19:30 12/19/16 19:29 Ondansetron HCl (Zofran) 4 mg Q6H PRN IVP Nausea & Vomiting 12/12/16 19:30 01/11/17 19:29 Pantoprazole (Protonix) 40 mg DAILY IV 12/13/16 09:00 01/12/17 08:59 12/14/16 09:32 Polyethylene Glycol (Miralax) 17 gm DAILYPRN PRN ORAL Constipation 12/12/16 19:30 01/11/17 19:29 Promethazine HCl/ Codeine 5 ml 5 ml Q4H PRN ORAL For Cough 12/13/16 10:30 01/12/17 10:29 12/14/16 09:32 Sodium Chloride 1,000 ml @ 75 mls/hr [id number] IV 12/12/16 19:30 01/11/17 19:29 12/14/16 11:33 Vancomycin HCl (Vanco rx to dose) 1 ea DAILY PRN MISC Per rx protocol 12/12/16 19:30 01/11/17 19:29 Vancomycin HCl/ Dextrose (Vancomycin/D5W) 275 ml @ 183.708 mls/hr Q12HR@1000,2200 IVPB 12/12/16 22:00 12/17/16 21:59 12/14/16 11:50 NAOMI GEORGE 10, 2017 16:38
[2016-12-14 16:58] VITALS: BP 92/54
[2016-12-14] MEDS ORDERED: Tigecycline 100 MG in D5W 110 ML IVPB ONE (18:00)
--- NOTE | 2016-12-14 18:16 | Internal Med Progress Note ---
Subjective Date of Service: Dec 14, 2016 Physician Name Tadeo Verdin Attending Physician Steve Rader MD Current Medications Medications (Trade) Dose Ordered Sig/Shraddha Route PRN Reason Start Time Stop Time Status Last Admin Dose Admin Acetaminophen (Tylenol) 650 mg Q4H PRN ORAL FEVER 12/12/16 19:30 01/11/17 19:29 12/13/16 21:52 Albuterol/ Ipratropium (DuoNeb 0.5-3(2.5)mg/3ml) 3 ml Q4H PRN HHN Shortness of Breath 12/12/16 19:30 12/17/16 19:29 12/13/16 17:09 Amikacin Protocol (Amikacin pharmacy to dose) 1 ea DAILY PRN MISC Per rx protocol 12/12/16 19:30 01/11/17 19:29 Dextrose STAT PRN IV Hypoglycemia 12/12/16 19:30 01/11/17 19:29 Heparin Sodium (Porcine) (Heparin 5000 units/ml) 5,000 units EVERY 12 HOURS SUBQ 12/12/16 21:00 01/11/17 20:59 12/14/16 09:44 Insulin Aspart (NovoLOG) BEFORE MEALS AND HS SUBQ 12/12/16 21:00 01/11/17 20:59 12/14/16 06:28 Lorazepam (Ativan 2mg/ml 1ml) 2 mg Q2H PRN IV For Anxiety 12/12/16 19:30 12/19/16 19:29 Morphine Sulfate (Morphine Sulfate) 4 mg Q4H PRN IVP Severe Pain (Pain Scale 7-10) 12/12/16 19:30 12/19/16 19:29 Ondansetron HCl (Zofran) 4 mg Q6H PRN IVP Nausea & Vomiting 12/12/16 19:30 01/11/17 19:29 Pantoprazole (Protonix) 40 mg DAILY IV 12/13/16 09:00 01/12/17 08:59 12/14/16 09:32 Polyethylene Glycol (Miralax) 17 gm DAILYPRN PRN ORAL Constipation 12/12/16 19:30 01/11/17 19:29 Promethazine HCl/ Codeine 5 ml 5 ml Q4H PRN ORAL For Cough 12/13/16 10:30 01/12/17 10:29 12/14/16 09:32 Sodium Chloride (Sodium Chloride 1000ml bag) 1,000 ml @ 75 mls/hr [id number] IV 12/12/16 19:30 01/11/17 19:29 12/14/16 11:33 Tigecycline 50 mg/ Dextrose 110 ml @ 220 mls/hr EVERY 12 HOURS IVPB 12/15/16 09:00 12/22/16 08:59 Tigecycline/ Dextrose (Tygacil/D5W) 110 ml @ 110 mls/hr ONCE ONCE IVPB 12/14/16 18:00 12/14/16 18:59 Allergies: Coded Allergies: No Known Allergies (Unverified , 06/17/16) ROS Limited/Unobtainable: Yes Subjective 66 YO M admitted for shortness of breath and tachycardia. Intubated and sedated. JORDAN. Cover for Int Wilder-Dr Rader. 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, no motor/sensory deficits Skin: normal pigmentation, warm/dry Laboratory Tests Test 12/14/16 04:20 12/14/16 09:00 White Blood Count 11.0 K/UL (4.8-10.8) H 13.3 K/UL (4.8-10.8) H Red Blood Count 2.49 M/UL (4.70-6.10) L 2.65 M/UL (4.70-6.10) L Hemoglobin 7.3 G/DL (14.2-18.0) L 7.8 G/DL (14.2-18.0) L Hematocrit 22.6 % (42.0-52.0) L 24.3 % (42.0-52.0) L Mean Corpuscular Volume 91 FL (80-99) 92 FL (80-99) Mean Corpuscular Hemoglobin 29.1 PG (27.0-31.0) 29.6 PG (27.0-31.0) Mean Corpuscular Hemoglobin Concent 32.1 G/DL (32.0-36.0) 32.3 G/DL (32.0-36.0) Red Cell Distribution Width 17.4 % (11.6-14.8) H 17.4 % (11.6-14.8) H Platelet Count 456 K/UL (150-450) H 411 K/UL (150-450) Mean Platelet Volume 5.8 FL (6.5-10.1) L 5.6 FL (6.5-10.1) L Neutrophils (%) (Auto) % (45.0-75.0) % (45.0-75.0) Lymphocytes (%) (Auto) % (20.0-45.0) % (20.0-45.0) Monocytes (%) (Auto) % (1.0-10.0) % (1.0-10.0) Eosinophils (%) (Auto) % (0.0-3.0) % (0.0-3.0) Basophils (%) (Auto) % (0.0-2.0) % (0.0-2.0) Neutrophils % (Manual) 79 % (45-75) H 85 % (45-75) H Lymphocytes % (Manual) 11 % (20-45) L 8 % (20-45) L Monocytes % (Manual) 6 % (1-10) 5 % (1-10) Eosinophils % (Manual) 4 % (0-3) H 2 % (0-3) Basophils % (Manual) 0 % (0-2) 0 % (0-2) Band Neutrophils 0 % (0-8) 0 % (0-8) Platelet Estimate Adequate Adequate Platelet Morphology Normal Normal Hypochromasia 1+ 1+ Anisocytosis 1+ 1+ Erythrocyte Sedimentation Rate 96 MM/HR (0-20) H Reticulocyte Count 2.2 % (0.0-2.0) H Prothrombin Time 12.9 SEC (9.30-11.50) H Prothromb Time International Ratio 1.2 (0.9-1.1) H Activated Partial Thromboplast Time 35 SEC (23-33) H Iron Level 19 ug/dL (59-158) L Total Iron Binding Capacity 142 ug/dL (250-400) L Percent Iron Saturation 13 % (15-50) L Unsaturated Iron Binding 123 ug/dL (112-346) Lactate Dehydrogenase 138 U/L (135-230) Carcinoembryonic Antigen 4.5 ng/mL H Vitamin B12 Level 1255 pg/mL (211-946) H Folate Pending Differential Total Cells Counted 100 Vancomycin Level Trough 16.0 ug/mL (5.0-12.0) H Microbiology Date/Time Source Procedure Growth Status 12/12/16 17:23 Blood Blood Culture - Preliminary NO GROWTH AFTER 24 HOURS Resulted 12/12/16 17:10 Blood Blood Culture - Preliminary NO GROWTH AFTER 24 HOURS Resulted 12/12/16 17:50 Nasal Nares MRSA Culture - Final NO METHICILLIN RESISTANT STAPH AUREUS... Complete 12/12/16 17:50 Urine,Clean Catch Urine Culture - Preliminary Acinetobacter Baumannii Complx Resulted 12/12/16 17:50 Rectum VRE Culture - Final Enterococcus Faecium - Vre Complete Intake and Output 12/13/16 12/14/16 19:00 07:00 Intake Total 1419.500 ml 1623.7 ml Output Total 450 ml 450 ml Balance 969.500 ml 1173.7 ml Intake Oral 360 ml Free Water 100 ml IV Total 1059.500 ml 1083.7 ml Tube Feeding 440 ml Output Urine Total 450 ml 450 ml # Bowel Movements 3 Assessment/Plan Problem List: (1) UTI (urinary tract infection) Assessment & Plan: Acinetobacter Baumanii. See ID note. D/C vanco and amikacin. Start tygacil. (2) Tachycardia (3) SOB (shortness of breath) Assessment & Plan: Due to pneurmonia. (4) Hypertension (5) Acute and chronic respiratory failure Assessment & Plan: Currently on Mech vent. See pulmonary note. (6) Emphysema lung (7) Lung abscess (8) Mass of colon (9) Pneumonia Assessment & Plan: see pulmonary and ID note. Status: not improved TADEO VERDIN Dec 14, 2016 18:16
[2016-12-14 20:00] VITALS: BP 122/68
[2016-12-14] MEDS: DuoNeb 0.5-3(2.5)mg/3ml neb HHN PRN (20:51)
--- NOTE | 2016-12-14 22:40 | Pulmonology Progress Note ---
Assessment/Plan Problems: (1) Acute and chronic respiratory failure (2) Feeding by G-tube (3) Emphysema lung (4) Pleural effusion on right Respiratory: monitor respiratory rate, adjust FIO2 Cardiac: continue to monitor HR/BP Renal: F/U I&O, keep IV fluid Infectious Disease: check cultures, continue antibiotics Gastrointestinal: continue feedings/current rate Endocrine: monitor blood sugar, continue sliding scale insulin Hematologic: monitor H/H, transfuse if hgb<8.5 Neurologic: keep patient comfortable Affect: PRN ativan Prophylaxis: Protonix Time Spent (Minutes): 40 Notes Reviewed: overnight stocker, cardio, renal 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, consultants, case technician Subjective ROS Limited/Unobtainable: No Allergies: Coded Allergies: No Known Allergies (Unverified , 06/17/16) Objective Last 24 Hour Vital Signs Date Time Temp Pulse Resp B/P Pulse Ox O2 Delivery O2 Flow Rate FiO2 12/14/16 21:42 86 16 40 12/14/16 20:51 95 18 100 Mechanical Ventilator 40 12/14/16 19:02 82 16 40 12/14/16 16:58 97.8 84 16 92/54 100 Mechanical Ventilator 40 12/14/16 16:34 81 16 40 12/14/16 16:00 40 12/14/16 15:58 74 12/14/16 14:52 85 16 40 12/14/16 13:06 110 20 40 12/14/16 12:00 40 12/14/16 11:54 74 12/14/16 11:35 98.4 78 16 93/71 100 Mechanical Ventilator 40 12/14/16 10:43 81 16 40 12/14/16 08:43 95 16 40 12/14/16 08:00 97.5 92 16 137/69 100 Mechanical Ventilator 40 12/14/16 08:00 40 12/14/16 07:55 93 12/14/16 07:19 93 16 40 12/14/16 05:00 86 16 40 12/14/16 04:00 91 12/14/16 04:00 98.7 94 20 96/64 100 Mechanical Ventilator 40 12/14/16 04:00 40 12/14/16 03:18 91 16 40 12/14/16 01:22 86 16 40 12/14/16 00:00 98.8 100 18 92/69 100 Mechanical Ventilator 40 12/14/16 00:00 81 12/14/16 00:00 40 12/13/16 23:25 81 16 40 12/13/16 22:51 98.7 12/13/16 22:51 97.8 Intake and Output 12/13/16 12/14/16 19:00 07:00 Intake Total 1419.500 ml 1623.7 ml Output Total 450 ml 450 ml Balance 969.500 ml 1173.7 ml Intake Oral 360 ml Free Water 100 ml IV Total 1059.500 ml 1083.7 ml Tube Feeding 440 ml Output Urine Total 450 ml 450 ml # Bowel Movements 3 Objective General Appearance: cachetic Lines, tubes and drains: peripheral HEENT: normocephalic, atraumatic Neck: non-tender, normal alignment Respiratory/Chest: chest wall non-tender, lungs clear Breasts: no masses Cardiovascular/Chest: normal peripheral pulses Abdomen: normal bowel sounds, non tender Genitourinary/Rectal: normal genital exam Extremities: normal range of motion Microbiology Date/Time Source Procedure Growth Status 12/12/16 17:23 Blood Blood Culture - Preliminary NO GROWTH AFTER 24 HOURS Resulted 12/12/16 17:10 Blood Blood Culture - Preliminary NO GROWTH AFTER 24 HOURS Resulted 12/12/16 17:50 Nasal Nares MRSA Culture - Final NO METHICILLIN RESISTANT STAPH AUREUS... Complete 12/12/16 17:50 Urine,Clean Catch Urine Culture - Preliminary Acinetobacter Baumannii Complx Resulted 12/12/16 17:50 Rectum VRE Culture - Final Enterococcus Faecium - Vre Complete Laboratory Tests 12/14/16 04:20: White Blood Count 11.0H, Red Blood Count 2.49L, Hemoglobin 7.3L, Hematocrit 22.6L, Mean Corpuscular Volume 91, Mean Corpuscular Hemoglobin 29.1, Mean Corpuscular Hemoglobin Concent 32.1, Red Cell Distribution Width 17.4H, Platelet Count 456H, Mean Platelet Volume 5.8L, Neutrophils (%) (Auto) , Lymphocytes (%) (Auto) , Monocytes (%) (Auto) , Eosinophils (%) (Auto) , Basophils (%) (Auto) , Neutrophils % (Manual) 79H, Lymphocytes % (Manual) 11L, Monocytes % (Manual) 6, Eosinophils % (Manual) 4H, Basophils % (Manual) 0, Band Neutrophils 0, Platelet Estimate Adequate, Platelet Morphology Normal, Hypochromasia 1+, Anisocytosis 1+, Erythrocyte Sedimentation Rate 96H, Reticulocyte Count 2.2H, Prothrombin Time 12.9H, Prothromb Time International Ratio 1.2H, Activated Partial Thromboplast Time 35H, Iron Level 19L, Total Iron Binding Capacity 142L, Percent Iron Saturation 13L, Unsaturated Iron Binding 123 , Lactate Dehydrogenase 138, Carcinoembryonic Antigen 4.5H, Vitamin B12 Level 1255H, Folate [Pending] 12/14/16 09:00: White Blood Count 13.3H, Red Blood Count 2.65L, Hemoglobin 7.8L, Hematocrit 24.3L, Mean Corpuscular Volume 92, Mean Corpuscular Hemoglobin 29.6, Mean Corpuscular Hemoglobin Concent 32.3, Red Cell Distribution Width 17.4H, Platelet Count 411, Mean Platelet Volume 5.6L, Neutrophils (%) (Auto) , Lymphocytes (%) (Auto) , Monocytes (%) (Auto) , Eosinophils (%) (Auto) , Basophils (%) (Auto) , Neutrophils % (Manual) 85H, Lymphocytes % (Manual) 8L, Monocytes % (Manual) 5, Eosinophils % (Manual) 2, Basophils % (Manual) 0, Band Neutrophils 0, Platelet Estimate Adequate, Platelet Morphology Normal, Hypochromasia 1+, Anisocytosis 1+, Differential Total Cells Counted 100, Vancomycin Level Trough 16.0H Current Medications Medications (Trade) Dose Ordered Sig/Shraddha Route PRN Reason Start Time Stop Time Status Last Admin Dose Admin Acetaminophen (Tylenol) 650 mg Q4H PRN ORAL FEVER 12/12/16 19:30 01/11/17 19:29 12/13/16 21:52 Albuterol/ Ipratropium (DuoNeb 0.5-3(2.5)mg/3ml) 3 ml Q4H PRN HHN Shortness of Breath 12/12/16 19:30 12/17/16 19:29 12/14/16 20:51 Amikacin Protocol (Amikacin pharmacy to dose) 1 ea DAILY PRN MISC Per rx protocol 12/12/16 19:30 01/11/17 19:29 Dextrose STAT PRN IV Hypoglycemia 12/12/16 19:30 01/11/17 19:29 Heparin Sodium (Porcine) (Heparin 5000 units/ml) 5,000 units EVERY 12 HOURS SUBQ 12/12/16 21:00 01/11/17 20:59 12/14/16 20:26 Insulin Aspart (NovoLOG) BEFORE MEALS AND HS SUBQ 12/12/16 21:00 01/11/17 20:59 12/14/16 06:28 Lorazepam (Ativan 2mg/ml 1ml) 2 mg Q2H PRN IV For Anxiety 12/12/16 19:30 12/19/16 19:29 Morphine Sulfate (Morphine Sulfate) 4 mg Q4H PRN IVP Severe Pain (Pain Scale 7-10) 12/12/16 19:30 12/19/16 19:29 Ondansetron HCl (Zofran) 4 mg Q6H PRN IVP Nausea & Vomiting 12/12/16 19:30 01/11/17 19:29 Pantoprazole (Protonix) 40 mg DAILY IV 12/13/16 09:00 01/12/17 08:59 12/14/16 09:32 Polyethylene Glycol (Miralax) 17 gm DAILYPRN PRN ORAL Constipation 12/12/16 19:30 01/11/17 19:29 Promethazine HCl/ Codeine 5 ml 5 ml Q4H PRN ORAL For Cough 12/13/16 10:30 01/12/17 10:29 12/14/16 21:43 Sodium Chloride (Sodium Chloride 1000ml bag) 1,000 ml @ 75 mls/hr [id number] IV 12/12/16 19:30 01/11/17 19:29 12/14/16 21:43 Tigecycline/ Dextrose (Tygacil/D5W) 110 ml @ 220 mls/hr EVERY 12 HOURS IVPB 12/15/16 09:00 12/22/16 08:59 REN WRIGHT Dec 14, 2016 22:40
--- NOTE | 2016-12-14 23:30 | Consultation ---
DATE OF CONSULTATION: CARDIOLOGY CONSULTATION CONSULTING PHYSICIAN: Jose Knutson M.D. REFERRING PHYSICIAN: Steve Rader M.D. REASON FOR CONSULTATION: Tachycardia and respiratory failure. HISTORY OF PRESENT ILLNESS: The patient is a 66-year-old gentleman with history of hypertension, chronic obstructive pulmonary disease, ventilator-dependent respiratory failure, status post tracheostomy, as well as history of dysphagia, status post PEG placement, as well as severe pulmonary hypertension, and chronic right lower extremity DVT. The patient was just recently discharged from the hospital and was brought back to the emergency room for increasing shortness of breath. The patient was found to have leukocytosis and right-sided infiltrates and Gram-negative ana urinary tract infection. The patient underwent bedside ultrasound and thoracentesis. I will start him on empiric IV antibiotic with vancomycin and amikacin. Cardiology consultation was obtained for further evaluation and management. REVIEW OF SYSTEMS: Review of systems was negative other than what was mentioned in the history of present illness. The patient has tracheostomy, but he is usually able to communicate. PAST MEDICAL HISTORY: Include: 1. Hypertension. 2. Ventilator-dependent respiratory failure. 3. Status post tracheostomy. 4. Status post PEG placement. 5. Chronic obstructive pulmonary disease. 6. Right lower extremity deep vein thrombosis. 7. Recurrent multi-drug resistant pneumonias. 8. Recurrent pleural effusion, status post thoracentesis. 9. Colonic mass with elevated CEA. MEDICATIONS: Per his reconstitution. PHYSICAL EXAMINATION: VITAL SIGNS: Blood pressure is 93/71, pulse is 110, and respirations 16. HEAD AND NECK: Shows no JVD. Status post tracheostomy. LUNGS: Have coarse rhonchi. CARDIOVASCULAR: Tachycardic. S1, S2 with no gallop or murmur. ABDOMEN: Soft. EXTREMITIES: edema. LABORATORY AND DIAGNOSTIC DATA: His labs show white count of 13.2, hemoglobin 7.8, hemoglobin 24.3, and platelet count is 411,000. Sodium 135, potassium 4.2, BUN of 15, creatinine 0.6, and glucose of 81. Troponin is negative. Vancomycin is noted. INR is 1.2. His urinalysis showed 15 to 20 WBC and many bacteria. ASSESSMENT AND PLAN: 1. Tachycardia due to sinus tachycardia. The patient has underlying sepsis and respiratory failure. There is no evidence of supraventricular tachycardia or atrial fibrillation. 2. Hypotension, likely due to sepsis, currently off pressors. 3. Severe chronic obstructive pulmonary disease and pulmonary hypertension. 4. Pneumonia, on broad-spectrum IV antibiotics. 5. Ventilator-dependent respiratory failure, status post tracheostomy. 6. Status post percutaneous endoscopic gastrostomy placement. 7. Colorectal mass, status post transfusion. 8. Pleural effusion, status post thoracentesis on 11/21/2016 and again today. Thank you very much, Dr. Rader, for allowing me to participate in the care of this patient. Please do not hesitate to contact me if you have any questions regarding my evaluation. Jose Knutson M.D. DR: DAVID JOB#: [id number] CC:
[2016-12-15] VITALS: BP 96/72
[2016-12-15] MEDS: DuoNeb 0.5-3(2.5)mg/3ml neb HHN PRN ×4 (02:12→21:50)
[2016-12-15 04:00] VITALS: BP 98/68
[2016-12-15] MEDS: Promethazine/Codeine 5ml UD ORAL PRN (04:29)
[2016-12-15 06:34] LABS: BASOPHILS % (AUTO) 1.3 % (0.0-2.0); EOSINOPHILS % (AUTO) 4.5 % (0.0-3.0); LYMPHOCYTES % (AUTO) 10.8 % (20.0-45.0); MEAN CORPUSCULAR HEMOGLOBIN 27.7 PG (27.0-31.0); MEAN CORPUSCULAR VOLUME 89 FL (80-99); MEAN PLATELET VOLUME 5.7 FL (6.5-10.1); MONOCYTES % (AUTO) 8.5 % (1.0-10.0); PLATELET COUNT 446 K/UL (150-450); RED BLOOD COUNT 3.28 M/UL (4.70-6.10)
[2016-12-15] MEDS: NovoLOG Insulin Flexpen SUBQ SCH ×4 (06:35→20:32)
[2016-12-15 07:37] LABS: ANION GAP 13 (5-15); CALCIUM 8.2 mg/dL (8.6-10.2); CARBON DIOXIDE 28 mEQ/L (20-30); CHLORIDE 95 mEQ/L (98-107); CREATININE 0.4 mg/dL (0.7-1.2); GLOMERULAR FILTRATION RATE > 60 mL/min (>60); HEMOLYSIS 11; POTASSIUM 4.8 mEQ/L (3.4-4.9); SODIUM 136 mEQ/L (135-145)
[2016-12-15 07:39] LABS: TROPONIN I < 0.30 ng/mL (<=0.30)
[2016-12-15 08:00] VITALS: BP 104/60
[2016-12-15 08:03] LABS: ALANINE AMINOTRANSFERASE 9 U/L (3-41); ALBUMIN/GLOBULIN RATIO 0.3 (1.0-2.7); ANION GAP 14 (5-15); ASPARTATE AMINO TRANSFERASE 13 U/L (5-40); CALCIUM 8.3 mg/dL (8.6-10.2); CARBON DIOXIDE 26 mEQ/L (20-30); CHLORIDE 96 mEQ/L (98-107); CREATININE 0.5 mg/dL (0.7-1.2); GLOMERULAR FILTRATION RATE > 60 mL/min (>60); HEMOLYSIS 4; MAGNESIUM 1.8 mg/dL (1.7-2.5); PHOSPHORUS 3.2 mg/dL (2.5-4.8); POTASSIUM 4.3 mEQ/L (3.4-4.9); SODIUM 136 mEQ/L (135-145); TOTAL PROTEIN 6.4 g/dL (6.6-8.7)
[2016-12-15] MEDS ORDERED: Tubing Blood Filter IV ONE (08:34)
[2016-12-15] MEDS ORDERED: NS 275ml ONE (08:34)
--- NOTE | 2016-12-15 08:36 | Infectious Diseases Prog Note ---
Assessment/Plan Assessment/Plan A: Pneumonia UTI VDRF Colonic mass Pulmonary HPN Pleural effusion P; Continue Tygacil Subjective ROS Limited/Unobtainable: Yes Allergies: Coded Allergies: No Known Allergies (Unverified , 06/17/16) Objective Vital Signs Last 24 Hour Vital Signs Date Time Temp Pulse Resp B/P Pulse Ox O2 Delivery O2 Flow Rate FiO2 12/15/16 08:01 101 18 100 Mechanical Ventilator 12/15/16 07:50 96 18 100 Mechanical Ventilator 40 12/15/16 06:32 74 16 40 12/15/16 05:15 72 16 40 12/15/16 04:00 98.7 92 18 98/68 100 Mechanical Ventilator 40 12/15/16 04:00 40 12/15/16 04:00 98 12/15/16 03:12 92 16 40 12/15/16 02:12 101 18 100 Mechanical Ventilator 40 12/15/16 01:25 101 16 40 12/15/16 00:00 40 12/15/16 00:00 87 12/15/16 00:00 98.6 84 18 96/72 100 Mechanical Ventilator 40 12/14/16 23:18 80 16 40 12/14/16 21:42 86 16 40 12/14/16 20:51 95 18 100 Mechanical Ventilator 40 12/14/16 20:00 98.9 99 18 122/68 100 Mechanical Ventilator 40 12/14/16 20:00 40 12/14/16 20:00 100 12/14/16 19:02 82 16 40 12/14/16 16:58 97.8 84 16 92/54 100 Mechanical Ventilator 40 12/14/16 16:34 81 16 40 12/14/16 16:00 40 12/14/16 15:58 74 12/14/16 14:52 85 16 40 12/14/16 13:06 110 20 40 12/14/16 12:00 40 12/14/16 11:54 74 12/14/16 11:35 98.4 78 16 93/71 100 Mechanical Ventilator 40 12/14/16 10:43 81 16 40 12/14/16 08:43 95 16 40 Height (Feet): 5 Height (Inches): 9.00 Weight (Pounds): 130 General Appearance: no acute distress HEENT: status post trach Respiratory/Chest: other - coarse sounds on ventilator Cardiovascular: normal rate Abdomen: soft, non tender, other - GT feeding Extremities: no edema Neurologic/Psychiatric: alert, responsive Musculoskeletal: atrophy Microbiology Date/Time Source Procedure Growth Status 12/12/16 17:23 Blood Blood Culture - Preliminary NO GROWTH AFTER 24 HOURS Resulted 12/12/16 17:10 Blood Blood Culture - Preliminary NO GROWTH AFTER 24 HOURS Resulted 12/12/16 17:50 Nasal Nares MRSA Culture - Final NO METHICILLIN RESISTANT STAPH AUREUS... Complete 12/12/16 17:50 Urine,Clean Catch Urine Culture - Preliminary Acinetobacter Baumannii Complx Resulted 12/12/16 17:50 Rectum VRE Culture - Final Enterococcus Faecium - Vre Complete Laboratory Tests Test 12/14/16 09:00 12/15/16 04:00 12/15/16 04:15 White Blood Count 13.3 K/UL (4.8-10.8) H 11.0 K/UL (4.8-10.8) H Red Blood Count 2.65 M/UL (4.70-6.10) L 3.28 M/UL (4.70-6.10) L Hemoglobin 7.8 G/DL (14.2-18.0) L 9.1 G/DL (14.2-18.0) L Hematocrit 24.3 % (42.0-52.0) L 29.3 % (42.0-52.0) L Mean Corpuscular Volume 92 FL (80-99) 89 FL (80-99) Mean Corpuscular Hemoglobin 29.6 PG (27.0-31.0) 27.7 PG (27.0-31.0) Mean Corpuscular Hemoglobin Concent 32.3 G/DL (32.0-36.0) 31.0 G/DL (32.0-36.0) L Red Cell Distribution Width 17.4 % (11.6-14.8) H 17.0 % (11.6-14.8) H Platelet Count 411 K/UL (150-450) 446 K/UL (150-450) Mean Platelet Volume 5.6 FL (6.5-10.1) L 5.7 FL (6.5-10.1) L Neutrophils (%) (Auto) % (45.0-75.0) 75.0 % (45.0-75.0) Lymphocytes (%) (Auto) % (20.0-45.0) 10.8 % (20.0-45.0) L Monocytes (%) (Auto) % (1.0-10.0) 8.5 % (1.0-10.0) Eosinophils (%) (Auto) % (0.0-3.0) 4.5 % (0.0-3.0) H Basophils (%) (Auto) % (0.0-2.0) 1.3 % (0.0-2.0) Differential Total Cells Counted 100 Neutrophils % (Manual) 85 % (45-75) H Lymphocytes % (Manual) 8 % (20-45) L Monocytes % (Manual) 5 % (1-10) Eosinophils % (Manual) 2 % (0-3) Basophils % (Manual) 0 % (0-2) Band Neutrophils 0 % (0-8) Platelet Estimate Adequate Platelet Morphology Normal Hypochromasia 1+ Anisocytosis 1+ Vancomycin Level Trough 16.0 ug/mL (5.0-12.0) H Sodium Level 136 mEQ/L (135-145) 136 mEQ/L (135-145) Potassium Level 4.3 mEQ/L (3.4-4.9) 4.8 mEQ/L (3.4-4.9) Chloride Level 96 mEQ/L (98-107) L 95 mEQ/L (98-107) L Carbon Dioxide Level 26 mEQ/L (20-30) 28 mEQ/L (20-30) Anion Gap 14 (5-15) 13 (5-15) Blood Urea Nitrogen 14 mg/dL (7-23) 14 mg/dL (7-23) Creatinine 0.5 mg/dL (0.7-1.2) L 0.4 mg/dL (0.7-1.2) L Estimat Glomerular Filtration Rate > 60 mL/min (>60) > 60 mL/min (>60) Glucose Level 112 mg/dL (74-106) H 111 mg/dL (74-106) H Calcium Level 8.3 mg/dL (8.6-10.2) L 8.2 mg/dL (8.6-10.2) L Phosphorus Level 3.2 mg/dL (2.5-4.8) Magnesium Level 1.8 mg/dL (1.7-2.5) Total Bilirubin < 0.2 mg/dL (0.0-1.2) Aspartate Amino Transf (AST/SGOT) 13 U/L (5-40) Alanine Aminotransferase (ALT/SGPT) 9 U/L (3-41) Alkaline Phosphatase 100 U/L (40-129) Total Protein 6.4 g/dL (6.6-8.7) L Albumin 1.8 g/dL (3.5-5.2) L Globulin 4.6 g/dL Albumin/Globulin Ratio 0.3 (1.0-2.7) L Troponin I < 0.30 ng/mL (<=0.30) Free Thyroxine 1.51 ng/dL (0.86-1.85) Current Medications Medications (Trade) Dose Ordered Sig/Shraddha Route PRN Reason Start Time Stop Time Status Last Admin Dose Admin Acetaminophen (Tylenol) 650 mg Q4H PRN ORAL FEVER 12/12/16 19:30 01/11/17 19:29 12/13/16 21:52 Albuterol/ Ipratropium (DuoNeb 0.5-3(2.5)mg/3ml) 3 ml Q4H PRN HHN Shortness of Breath 12/12/16 19:30 12/17/16 19:29 12/15/16 07:50 Amikacin Protocol (Amikacin pharmacy to dose) 1 ea DAILY PRN MISC Per rx protocol 12/12/16 19:30 01/11/17 19:29 Dextrose STAT PRN IV Hypoglycemia 12/12/16 19:30 01/11/17 19:29 Heparin Sodium (Porcine) (Heparin 5000 units/ml) 5,000 units EVERY 12 HOURS SUBQ 12/12/16 21:00 01/11/17 20:59 12/14/16 20:26 Insulin Aspart (NovoLOG) BEFORE MEALS AND HS SUBQ 12/12/16 21:00 01/11/17 20:59 12/15/16 06:35 Lorazepam (Ativan 2mg/ml 1ml) 2 mg Q2H PRN IV For Anxiety 12/12/16 19:30 12/19/16 19:29 Morphine Sulfate (Morphine Sulfate) 4 mg Q4H PRN IVP Severe Pain (Pain Scale 7-10) 12/12/16 19:30 12/19/16 19:29 Ondansetron HCl (Zofran) 4 mg Q6H PRN IVP Nausea & Vomiting 12/12/16 19:30 01/11/17 19:29 Pantoprazole (Protonix) 40 mg DAILY IV 12/13/16 09:00 01/12/17 08:59 12/14/16 09:32 Polyethylene Glycol (Miralax) 17 gm DAILYPRN PRN ORAL Constipation 12/12/16 19:30 01/11/17 19:29 Promethazine HCl/ Codeine 5 ml 5 ml Q4H PRN ORAL For Cough 12/13/16 10:30 01/12/17 10:29 12/15/16 04:29 Sodium Chloride (Sodium Chloride 1000ml bag) 1,000 ml @ 75 mls/hr [id number] IV 12/12/16 19:30 01/11/17 19:29 12/14/16 21:43 Tigecycline/ Dextrose (Tygacil/D5W) 110 ml @ 220 mls/hr EVERY 12 HOURS IVPB 12/15/16 09:00 12/22/16 08:59 LINNETTE DIAZ Dec 15, 2016 08:36
[2016-12-15] MEDS: Tigecycline 50 MG in D5W 110 ML IVPB SCH ×2 (08:42→20:32)
[2016-12-15] MEDS: Pantoprazole Inj IV SCH (08:42)
[2016-12-15] MEDS: Heparin 5000 units/ml inj SUBQ SCH ×2 (08:44→20:34)
--- NOTE | 2016-12-15 11:17 | Diagnostic Imaging Report ---
Indication: Dyspnea Comparison: 12/13/16 A single view chest radiograph was obtained. Findings: There is a airspace disease in the right perihilar region extending to the lung periphery. There may be marginal improvement in this. There may be a right pleural effusion. The left lung appears hyperexpanded. The ostomy is noted. The appearance is relatively stable. Impression: No significant change.
[2016-12-15 12:00] VITALS: BP 129/89
[2016-12-15 16:00] VITALS: BP 129/90
--- NOTE | 2016-12-15 17:20 | Cardiac Electrophysiology PN ---
Assessment/Plan Assessment/Plan 1. Sinus tachycardia. due to underlying sepsis and respiratory failure. There is no evidence of supraventricular tachycardia or atrial fibrillation. 2. Hypotension, likely due to sepsis, currently off pressors. 3. Severe chronic obstructive pulmonary disease and pulmonary hypertension. 4. Pneumonia, on broad-spectrum IV antibiotics. 5. Ventilator-dependent respiratory failure, status post tracheostomy. 6. Status post percutaneous endoscopic gastrostomy placement. 7. Colorectal mass, status post transfusion. 8. Pleural effusion, status post thoracentesis on 11/21/2016 and DW RN Subjective Subjective Comfortable in NAD. In JORDAN on vent via trach but alert. RNs at bedside. Objective Last 24 Hour Vital Signs Date Time Temp Pulse Resp B/P Pulse Ox O2 Delivery O2 Flow Rate FiO2 12/15/16 16:44 89 16 40 12/15/16 16:00 40 12/15/16 15:02 91 16 40 12/15/16 13:30 99 18 100 Mechanical Ventilator 40 12/15/16 12:39 76 16 40 12/15/16 12:00 40 12/15/16 12:00 97.7 109 16 129/89 99 Mechanical Ventilator 40 12/15/16 11:46 80 12/15/16 10:31 74 16 40 12/15/16 08:43 79 16 40 12/15/16 08:01 101 18 100 Mechanical Ventilator 12/15/16 08:00 97.7 99 17 104/60 100 Mechanical Ventilator 40 12/15/16 08:00 40 12/15/16 07:54 99 12/15/16 07:50 96 18 100 Mechanical Ventilator 40 12/15/16 06:32 74 16 40 12/15/16 05:15 72 16 40 12/15/16 04:00 98.7 92 18 98/68 100 Mechanical Ventilator 40 12/15/16 04:00 40 12/15/16 04:00 98 12/15/16 03:12 92 16 40 12/15/16 02:12 101 18 100 Mechanical Ventilator 40 12/15/16 01:25 101 16 40 12/15/16 00:00 40 12/15/16 00:00 87 12/15/16 00:00 98.6 84 18 96/72 100 Mechanical Ventilator 40 12/14/16 23:18 80 16 40 12/14/16 21:42 86 16 40 12/14/16 20:51 95 18 100 Mechanical Ventilator 40 12/14/16 20:00 98.9 99 18 122/68 100 Mechanical Ventilator 40 12/14/16 20:00 40 12/14/16 20:00 100 12/14/16 19:02 82 16 40 Intake and Output 12/14/16 12/15/16 19:00 07:00 Intake Total 805.000 ml 1274 ml Output Total 550 ml 1000 ml Balance 255.000 ml 274 ml Free Water 100 ml IV Total 805.000 ml 694 ml Tube Feeding 480 ml Output Urine Total 550 ml 1000 ml Laboratory Tests Test 12/15/16 04:00 12/15/16 04:15 12/15/16 16:00 Sodium Level 136 mEQ/L (135-145) 136 mEQ/L (135-145) Potassium Level 4.3 mEQ/L (3.4-4.9) 4.8 mEQ/L (3.4-4.9) Chloride Level 96 mEQ/L (98-107) L 95 mEQ/L (98-107) L Carbon Dioxide Level 26 mEQ/L (20-30) 28 mEQ/L (20-30) Anion Gap 14 (5-15) 13 (5-15) Blood Urea Nitrogen 14 mg/dL (7-23) 14 mg/dL (7-23) Creatinine 0.5 mg/dL (0.7-1.2) L 0.4 mg/dL (0.7-1.2) L Estimat Glomerular Filtration Rate > 60 mL/min (>60) > 60 mL/min (>60) Glucose Level 112 mg/dL (74-106) H 111 mg/dL (74-106) H Calcium Level 8.3 mg/dL (8.6-10.2) L 8.2 mg/dL (8.6-10.2) L Phosphorus Level 3.2 mg/dL (2.5-4.8) Magnesium Level 1.8 mg/dL (1.7-2.5) Total Bilirubin < 0.2 mg/dL (0.0-1.2) Aspartate Amino Transf (AST/SGOT) 13 U/L (5-40) Alanine Aminotransferase (ALT/SGPT) 9 U/L (3-41) Alkaline Phosphatase 100 U/L (40-129) Total Protein 6.4 g/dL (6.6-8.7) L Albumin 1.8 g/dL (3.5-5.2) L Globulin 4.6 g/dL Albumin/Globulin Ratio 0.3 (1.0-2.7) L White Blood Count 11.0 K/UL (4.8-10.8) H Red Blood Count 3.28 M/UL (4.70-6.10) L Hemoglobin 9.1 G/DL (14.2-18.0) L Hematocrit 29.3 % (42.0-52.0) L Mean Corpuscular Volume 89 FL (80-99) Mean Corpuscular Hemoglobin 27.7 PG (27.0-31.0) Mean Corpuscular Hemoglobin Concent 31.0 G/DL (32.0-36.0) L Red Cell Distribution Width 17.0 % (11.6-14.8) H Platelet Count 446 K/UL (150-450) Mean Platelet Volume 5.7 FL (6.5-10.1) L Neutrophils (%) (Auto) 75.0 % (45.0-75.0) Lymphocytes (%) (Auto) 10.8 % (20.0-45.0) L Monocytes (%) (Auto) 8.5 % (1.0-10.0) Eosinophils (%) (Auto) 4.5 % (0.0-3.0) H Basophils (%) (Auto) 1.3 % (0.0-2.0) Troponin I < 0.30 ng/mL (<=0.30) Pro-B-Type Natriuretic Peptide 540 pg/mL (0-125) H Free Thyroxine 1.51 ng/dL (0.86-1.85) Stool Occult Blood Pending Microbiology Date/Time Source Procedure Growth Status 12/12/16 17:23 Blood Blood Culture - Preliminary NO GROWTH AFTER 48 HOURS Resulted 12/12/16 17:50 Nasal Nares MRSA Culture - Final NO METHICILLIN RESISTANT STAPH AUREUS... Complete 12/12/16 17:50 Urine,Clean Catch Urine Culture - Final Acinetobacter Baumannii Complx Complete 12/12/16 17:50 Rectum VRE Culture - Final Enterococcus Faecium - Vre Complete Objective HEAD AND NECK: Shows no JVD. Status post tracheostomy. LUNGS: Have coarse rhonchi. CARDIOVASCULAR: Tachycardic. S1, S2 with no gallop or murmur. ABDOMEN: Soft. EXTREMITIES: One plus edema. OSWALD HILLS Dec 15, 2016 17:20
--- NOTE | 2016-12-15 17:26 | Pulmonology Progress Note ---
Assessment/Plan Problems: (1) Acute and chronic respiratory failure (2) Feeding by G-tube (3) Emphysema lung (4) Pleural effusion on right Respiratory: adjust tidal volume, monitor respiratory rate, adjust FIO2 Cardiac: continue to monitor HR/BP Renal: F/U I&O Infectious Disease: check cultures, continue antibiotics Gastrointestinal: continue feedings/current rate Endocrine: monitor blood sugar, check TSH, check HgA1C Neurologic: PRN Morphine Prophylaxis: Protonix Time Spent (Minutes): 30 Subjective ROS Limited/Unobtainable: No Constitutional: Reports: no symptoms HEENT: Repors: no symptoms Allergies: Coded Allergies: No Known Allergies (Unverified , 06/17/16) Objective Last 24 Hour Vital Signs Date Time Temp Pulse Resp B/P Pulse Ox O2 Delivery O2 Flow Rate FiO2 12/15/16 16:44 89 16 40 12/15/16 16:00 40 12/15/16 15:02 91 16 40 12/15/16 13:30 99 18 100 Mechanical Ventilator 40 12/15/16 12:39 76 16 40 12/15/16 12:00 40 12/15/16 12:00 97.7 109 16 129/89 99 Mechanical Ventilator 40 12/15/16 11:46 80 12/15/16 10:31 74 16 40 12/15/16 08:43 79 16 40 12/15/16 08:01 101 18 100 Mechanical Ventilator 12/15/16 08:00 97.7 99 17 104/60 100 Mechanical Ventilator 40 12/15/16 08:00 40 12/15/16 07:54 99 12/15/16 07:50 96 18 100 Mechanical Ventilator 40 12/15/16 06:32 74 16 40 12/15/16 05:15 72 16 40 12/15/16 04:00 98.7 92 18 98/68 100 Mechanical Ventilator 40 12/15/16 04:00 40 12/15/16 04:00 98 12/15/16 03:12 92 16 40 12/15/16 02:12 101 18 100 Mechanical Ventilator 40 12/15/16 01:25 101 16 40 12/15/16 00:00 40 12/15/16 00:00 87 12/15/16 00:00 98.6 84 18 96/72 100 Mechanical Ventilator 40 12/14/16 23:18 80 16 40 12/14/16 21:42 86 16 40 12/14/16 20:51 95 18 100 Mechanical Ventilator 40 12/14/16 20:00 98.9 99 18 122/68 100 Mechanical Ventilator 40 12/14/16 20:00 40 12/14/16 20:00 100 12/14/16 19:02 82 16 40 Intake and Output 12/14/16 12/15/16 19:00 07:00 Intake Total 805.000 ml 1274 ml Output Total 550 ml 1000 ml Balance 255.000 ml 274 ml Free Water 100 ml IV Total 805.000 ml 694 ml Tube Feeding 480 ml Output Urine Total 550 ml 1000 ml Objective General Appearance: cachetic Lines, tubes and drains: peripheral HEENT: normocephalic, atraumatic Neck: non-tender, normal alignment Respiratory/Chest: chest wall non-tender, lungs clear Breasts: no masses Cardiovascular/Chest: normal peripheral pulses Abdomen: normal bowel sounds, non tender Genitourinary/Rectal: normal genital exam Extremities: normal range of motion Microbiology Date/Time Source Procedure Growth Status 12/12/16 17:50 Nasal Nares MRSA Culture - Final NO METHICILLIN RESISTANT STAPH AUREUS... Complete 12/12/16 17:50 Urine,Clean Catch Urine Culture - Final Acinetobacter Baumannii Complx Complete 12/12/16 17:50 Rectum VRE Culture - Final Enterococcus Faecium - Vre Complete Laboratory Tests 12/15/16 04:00: Sodium Level 136, Potassium Level 4.3, Chloride Level 96L, Carbon Dioxide Level 26, Anion Gap 14, Blood Urea Nitrogen 14, Creatinine 0.5L, Estimat Glomerular Filtration Rate > 60, Glucose Level 112H, Calcium Level 8.3L, Phosphorus Level 3.2, Magnesium Level 1.8, Total Bilirubin < 0.2, Aspartate Amino Transf (AST/ SGOT) 13, Alanine Aminotransferase (ALT/SGPT) 9, Alkaline Phosphatase 100, Total Protein 6.4L, Albumin 1.8L, Globulin 4.6, Albumin/Globulin Ratio 0.3L 12/15/16 04:15: Sodium Level 136, Potassium Level 4.8, Chloride Level 95L, Carbon Dioxide Level 28, Anion Gap 13, Blood Urea Nitrogen 14, Creatinine 0.4L, Estimat Glomerular Filtration Rate > 60, Glucose Level 111H, Calcium Level 8.2L, White Blood Count 11.0H, Red Blood Count 3.28L, Hemoglobin 9.1L, Hematocrit 29.3L, Mean Corpuscular Volume 89, Mean Corpuscular Hemoglobin 27.7, Mean Corpuscular Hemoglobin Concent 31.0L, Red Cell Distribution Width 17.0H, Platelet Count 446 , Mean Platelet Volume 5.7L, Neutrophils (%) (Auto) 75.0, Lymphocytes (%) (Auto ) 10.8L, Monocytes (%) (Auto) 8.5, Eosinophils (%) (Auto) 4.5H, Basophils (%) ( Auto) 1.3, Troponin I < 0.30, Pro-B-Type Natriuretic Peptide 540H, Free Thyroxine 1.51 12/15/16 16:00: Stool Occult Blood [Pending] Current Medications Medications (Trade) Dose Ordered Sig/Shraddha Route PRN Reason Start Time Stop Time Status Last Admin Dose Admin Acetaminophen (Tylenol) 650 mg Q4H PRN ORAL FEVER 12/12/16 19:30 01/11/17 19:29 12/13/16 21:52 Albuterol/ Ipratropium (DuoNeb 0.5-3(2.5)mg/3ml) 3 ml Q4H PRN HHN Shortness of Breath 12/12/16 19:30 12/17/16 19:29 12/15/16 13:29 Dextrose STAT PRN IV Hypoglycemia 12/12/16 19:30 01/11/17 19:29 Heparin Sodium (Porcine) (Heparin 5000 units/ml) 5,000 units EVERY 12 HOURS SUBQ 12/12/16 21:00 01/11/17 20:59 12/15/16 08:44 Insulin Aspart (NovoLOG) BEFORE MEALS AND HS SUBQ 12/12/16 21:00 01/11/17 20:59 12/15/16 06:35 Lorazepam (Ativan 2mg/ml 1ml) 2 mg Q2H PRN IV For Anxiety 12/12/16 19:30 12/19/16 19:29 Morphine Sulfate (Morphine Sulfate) 4 mg Q4H PRN IVP Severe Pain (Pain Scale 7-10) 12/12/16 19:30 12/19/16 19:29 Ondansetron HCl (Zofran) 4 mg Q6H PRN IVP Nausea & Vomiting 12/12/16 19:30 01/11/17 19:29 Pantoprazole (Protonix) 40 mg DAILY IV 12/13/16 09:00 01/12/17 08:59 12/15/16 08:42 Polyethylene Glycol (Miralax) 17 gm DAILYPRN PRN ORAL Constipation 12/12/16 19:30 01/11/17 19:29 Promethazine HCl/ Codeine 5 ml 5 ml Q4H PRN ORAL For Cough 12/13/16 10:30 01/12/17 10:29 12/15/16 04:29 Sodium Chloride (Sodium Chloride 1000ml bag) 1,000 ml @ 75 mls/hr [id number] IV 12/12/16 19:30 01/11/17 19:29 12/15/16 11:34 Tigecycline/ Dextrose (Tygacil/D5W) 110 ml @ 220 mls/hr EVERY 12 HOURS IVPB 12/15/16 09:00 12/22/16 08:59 12/15/16 08:42 REN WRIGHT Dec 15, 2016 17:26
--- NOTE | 2016-12-15 19:19 | Internal Med Progress Note ---
Subjective Date of Service: Dec 15, 2016 Physician Name Verdin,Tadeo Attending Physician Steve Rader MD Current Medications Medications (Trade) Dose Ordered Sig/Shraddha Route PRN Reason Start Time Stop Time Status Last Admin Dose Admin Acetaminophen (Tylenol) 650 mg Q4H PRN ORAL FEVER 12/12/16 19:30 01/11/17 19:29 12/13/16 21:52 Albuterol/ Ipratropium (DuoNeb 0.5-3(2.5)mg/3ml) 3 ml Q4H PRN HHN Shortness of Breath 12/12/16 19:30 12/17/16 19:29 12/15/16 13:29 Dextrose STAT PRN IV Hypoglycemia 12/12/16 19:30 01/11/17 19:29 Heparin Sodium (Porcine) (Heparin 5000 units/ml) 5,000 units EVERY 12 HOURS SUBQ 12/12/16 21:00 01/11/17 20:59 12/15/16 08:44 Insulin Aspart (NovoLOG) BEFORE MEALS AND HS SUBQ 12/12/16 21:00 01/11/17 20:59 12/15/16 06:35 Lorazepam (Ativan 2mg/ml 1ml) 2 mg Q2H PRN IV For Anxiety 12/12/16 19:30 12/19/16 19:29 Morphine Sulfate (Morphine Sulfate) 4 mg Q4H PRN IVP Severe Pain (Pain Scale 7-10) 12/12/16 19:30 12/19/16 19:29 Ondansetron HCl (Zofran) 4 mg Q6H PRN IVP Nausea & Vomiting 12/12/16 19:30 01/11/17 19:29 Pantoprazole (Protonix) 40 mg DAILY IV 12/13/16 09:00 01/12/17 08:59 12/15/16 08:42 Polyethylene Glycol (Miralax) 17 gm DAILYPRN PRN ORAL Constipation 12/12/16 19:30 01/11/17 19:29 Promethazine HCl/ Codeine 5 ml 5 ml Q4H PRN ORAL For Cough 12/13/16 10:30 01/12/17 10:29 12/15/16 04:29 Sodium Chloride (Sodium Chloride 1000ml bag) 1,000 ml @ 75 mls/hr [id number] IV 12/12/16 19:30 01/11/17 19:29 12/15/16 11:34 Tigecycline/ Dextrose (Tygacil/D5W) 110 ml @ 220 mls/hr EVERY 12 HOURS IVPB 12/15/16 09:00 12/22/16 08:59 12/15/16 08:42 Allergies: Coded Allergies: No Known Allergies (Unverified , 06/17/16) ROS Limited/Unobtainable: Yes Subjective 66 YO M admitted for shortness of breath and tachycardia. Intubated and sedated. JORDAN. Cover for Int Wilder-Dr Rader. Objective Last Vital Signs Date Time Temp Pulse Resp B/P Pulse Ox O2 Delivery O2 Flow Rate FiO2 12/15/16 17:01 106 12/15/16 16:44 16 40 12/15/16 16:00 98.1 129/90 100 Mechanical Ventilator Laboratory Tests Test 12/15/16 04:00 12/15/16 04:15 12/15/16 16:00 Sodium Level 136 mEQ/L (135-145) 136 mEQ/L (135-145) Potassium Level 4.3 mEQ/L (3.4-4.9) 4.8 mEQ/L (3.4-4.9) Chloride Level 96 mEQ/L (98-107) L 95 mEQ/L (98-107) L Carbon Dioxide Level 26 mEQ/L (20-30) 28 mEQ/L (20-30) Anion Gap 14 (5-15) 13 (5-15) Blood Urea Nitrogen 14 mg/dL (7-23) 14 mg/dL (7-23) Creatinine 0.5 mg/dL (0.7-1.2) L 0.4 mg/dL (0.7-1.2) L Estimat Glomerular Filtration Rate > 60 mL/min (>60) > 60 mL/min (>60) Glucose Level 112 mg/dL (74-106) H 111 mg/dL (74-106) H Calcium Level 8.3 mg/dL (8.6-10.2) L 8.2 mg/dL (8.6-10.2) L Phosphorus Level 3.2 mg/dL (2.5-4.8) Magnesium Level 1.8 mg/dL (1.7-2.5) Total Bilirubin < 0.2 mg/dL (0.0-1.2) Aspartate Amino Transf (AST/SGOT) 13 U/L (5-40) Alanine Aminotransferase (ALT/SGPT) 9 U/L (3-41) Alkaline Phosphatase 100 U/L (40-129) Total Protein 6.4 g/dL (6.6-8.7) L Albumin 1.8 g/dL (3.5-5.2) L Globulin 4.6 g/dL Albumin/Globulin Ratio 0.3 (1.0-2.7) L White Blood Count 11.0 K/UL (4.8-10.8) H Red Blood Count 3.28 M/UL (4.70-6.10) L Hemoglobin 9.1 G/DL (14.2-18.0) L Hematocrit 29.3 % (42.0-52.0) L Mean Corpuscular Volume 89 FL (80-99) Mean Corpuscular Hemoglobin 27.7 PG (27.0-31.0) Mean Corpuscular Hemoglobin Concent 31.0 G/DL (32.0-36.0) L Red Cell Distribution Width 17.0 % (11.6-14.8) H Platelet Count 446 K/UL (150-450) Mean Platelet Volume 5.7 FL (6.5-10.1) L Neutrophils (%) (Auto) 75.0 % (45.0-75.0) Lymphocytes (%) (Auto) 10.8 % (20.0-45.0) L Monocytes (%) (Auto) 8.5 % (1.0-10.0) Eosinophils (%) (Auto) 4.5 % (0.0-3.0) H Basophils (%) (Auto) 1.3 % (0.0-2.0) Troponin I < 0.30 ng/mL (<=0.30) Pro-B-Type Natriuretic Peptide 540 pg/mL (0-125) H Free Thyroxine 1.51 ng/dL (0.86-1.85) Stool Occult Blood Pending Intake and Output 12/14/16 12/15/16 19:00 07:00 Intake Total 805.000 ml 1274 ml Output Total 550 ml 1000 ml Balance 255.000 ml 274 ml Free Water 100 ml IV Total 805.000 ml 694 ml Tube Feeding 480 ml Output Urine Total 550 ml 1000 ml Objective General Appearance: lethargic, thin EENT: PERRL/EOMI, normal ENT inspection Neck: Trach; non-tender, normal alignment, supple Cardiovascular: normal peripheral pulses, regular rhythm, no gallop/murmur, no JVD, tachycardia Respiratory/Chest: chest wall non-tender, crackles/rales, rhonchi - bilaterally , expiratory wheezing Abdomen: normal bowel sounds, non tender, soft, no organomegaly, no mass 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 See ID note. D/C vanco and amikacin. Start tygacil. (2) Tachycardia (3) SOB (shortness of breath) Assessment & Plan: Due to pneurmonia. (4) Hypertension (5) Acute and chronic respiratory failure Assessment & Plan: Currently on Mech vent. See pulmonary note. (6) Emphysema lung (7) Lung abscess (8) Mass of colon (9) Pneumonia Assessment & Plan: see pulmonary and ID note. Status: not improved TADEO VERDIN Dec 15, 2016 19:19
[2016-12-15 20:00] VITALS: BP 102/75
[2016-12-16] VITALS: BP 117/78
[2016-12-16 04:00] VITALS: BP 112/76
[2016-12-16 05:29] LABS: BASOPHILS % (AUTO) 1.1 % (0.0-2.0); EOSINOPHILS % (AUTO) 2.8 % (0.0-3.0); LYMPHOCYTES % (AUTO) 10.9 % (20.0-45.0); MEAN CORPUSCULAR HEMOGLOBIN 28.8 PG (27.0-31.0); MEAN CORPUSCULAR VOLUME 90 FL (80-99); NEUTROPHILS % (AUTO) 78.2 % (45.0-75.0); PLATELET COUNT 444 K/UL (150-450); RED BLOOD COUNT 3.34 M/UL (4.70-6.10); WHITE BLOOD COUNT 12.4 K/UL (4.8-10.8)
[2016-12-16] MEDS: NovoLOG Insulin Flexpen SUBQ SCH ×4 (05:34→20:55)
[2016-12-16 05:57] LABS: ALANINE AMINOTRANSFERASE 8 U/L (3-41); ALBUMIN/GLOBULIN RATIO 0.3 (1.0-2.7); ANION GAP 13 (5-15); ASPARTATE AMINO TRANSFERASE 11 U/L (5-40); CALCIUM 8.4 mg/dL (8.6-10.2); CARBON DIOXIDE 26 mEQ/L (20-30); CHLORIDE 95 mEQ/L (98-107); CREATININE 0.5 mg/dL (0.7-1.2); GLOMERULAR FILTRATION RATE > 60 mL/min (>60); HEMOLYSIS 3; POTASSIUM 4.2 mEQ/L (3.4-4.9); SODIUM 134 mEQ/L (135-145); TOTAL PROTEIN 6.5 g/dL (6.6-8.7)
[2016-12-16] MEDS: DuoNeb 0.5-3(2.5)mg/3ml neb HHN PRN (07:01)
[2016-12-16 08:00] VITALS: BP 119/81
[2016-12-16] MEDS: Heparin 5000 units/ml inj SUBQ SCH ×2 (08:33→20:55)
[2016-12-16] MEDS: Pantoprazole Inj IV SCH (08:33)
[2016-12-16] MEDS: Tigecycline 50 MG in D5W 110 ML IVPB SCH ×2 (08:33→20:52)
--- NOTE | 2016-12-16 09:10 | Diagnostic Imaging Report ---
Indications: Pleural effusion Technique: Ultrasound used to localize optimal puncture site. Sterile prepping and draping chest. Local anesthesia with 1% lidocaine. Under real-time ultrasound guidance, puncture pleural space using thoracentesis needle. Stylet removed. Catheter placed to vacuum bottle suction. Total 500 milliliters of clear yellow fluid aspirated. Patient tolerated procedure well, without immediate complication. Findings: Followup sonography demonstrates complete resolution of pleural fluid. Impression: Successful ultrasound-guided thoracentesis, yielding 500 milliliters of clear yellow fluid
--- NOTE | 2016-12-16 10:55 | Infectious Diseases Prog Note ---
Assessment/Plan Assessment/Plan ASSESSMENT: 66 y/o male with: // Probable recurrent HCAP / VAP r/o empyema - SCx pending - CXR 12/13: Fairly extensive infiltrate throughout the right lung persists, may be slightly worse. Left lung and pleural space remain clear - h/o MDR ACB, PSA - CT 11/14 :Extensive pneumonia involving both lungs as described above. 5-6 cm cavitary focus suspicious for lung abscess in the right upper lobe. // Recurrent pleural effusion r/o empyema, malignant - SP thoracentesis 12/13 - pleural fluid Cx pending - SP thoracentesis 11/21 neg empyema // Recurrent MDR-ACB UTI - h/o yeast, VRE // Leukocytosis - improved overall, afebrile ( DVT, probable CA contributing ) // HIV and Hep B/C : neg // Colon mass, elevated CEA ro cancer CT: Large cecal mass and other polypoid colonic masses, detailed previously , again demonstrated // Acute on chronic VDRF SP trach, PEG - h/o COPD // Severe pulmonary HTN / grade I diastolic dysfunction / mod TR // Pulmonary nodules // h/o chronic RLE DVT - repeat doppler neg // Thrombocytosis // [place] resident // MDRO colonized // NKDA // Full Code PLAN: - cont tygacil d# 2 / 10 SP IV vancomycin, amikacin d# 2 - f/u cultures - monitor CBC, temperatures - monitor BMP - monitor CXR - vent support, trach care, aspiration precautions Subjective Constitutional: Denies: anorexia, chills, drenching sweats, fatigue, fever, no symptoms, other Allergies: Coded Allergies: No Known Allergies (Unverified , 06/17/16) Objective Vital Signs Last 24 Hour Vital Signs Date Time Temp Pulse Resp B/P Pulse Ox O2 Delivery O2 Flow Rate FiO2 12/16/16 08:36 91 18 40 12/16/16 08:00 40 12/16/16 08:00 95 12/16/16 08:00 98.2 86 16 119/81 100 Mechanical Ventilator 40 12/16/16 07:10 91 18 100 Mechanical Ventilator 12/16/16 07:00 87 18 100 Mechanical Ventilator 40 12/16/16 07:00 87 18 40 12/16/16 05:18 95 18 40 12/16/16 04:00 99.0 98 20 112/76 100 Mechanical Ventilator 40 12/16/16 04:00 40 12/16/16 04:00 101 12/16/16 03:23 103 22 40 12/16/16 01:05 93 16 40 12/16/16 00:00 40 12/16/16 00:00 98.4 100 18 117/78 Mechanical Ventilator 40 12/16/16 00:00 87 12/15/16 23:10 92 16 40 12/15/16 21:51 104 18 100 Mechanical Ventilator 40 12/15/16 21:00 94 16 40 12/15/16 20:00 40 12/15/16 20:00 97.7 80 18 102/75 100 Mechanical Ventilator 40 12/15/16 20:00 83 12/15/16 19:00 88 16 40 12/15/16 17:01 106 12/15/16 16:44 89 16 40 12/15/16 16:00 98.1 101 23 129/90 100 Mechanical Ventilator 40 12/15/16 16:00 40 12/15/16 15:02 91 16 40 12/15/16 13:30 99 18 100 Mechanical Ventilator 40 12/15/16 12:39 76 16 40 12/15/16 12:00 40 12/15/16 12:00 97.7 109 16 129/89 99 Mechanical Ventilator 40 12/15/16 11:46 80 Height (Feet): 5 Height (Inches): 9.00 Weight (Pounds): 130 HEENT: anicteric Respiratory/Chest: normal breath sounds Cardiovascular: regular rhythm Laboratory Tests Test 12/15/16 16:00 12/16/16 03:30 Stool Occult Blood Positive (NEGATIVE) White Blood Count 12.4 K/UL (4.8-10.8) H Red Blood Count 3.34 M/UL (4.70-6.10) L Hemoglobin 9.6 G/DL (14.2-18.0) L Hematocrit 30.0 % (42.0-52.0) L Mean Corpuscular Volume 90 FL (80-99) Mean Corpuscular Hemoglobin 28.8 PG (27.0-31.0) Mean Corpuscular Hemoglobin Concent 32.0 G/DL (32.0-36.0) Red Cell Distribution Width 17.0 % (11.6-14.8) H Platelet Count 444 K/UL (150-450) Mean Platelet Volume 6.0 FL (6.5-10.1) L Neutrophils (%) (Auto) 78.2 % (45.0-75.0) H Lymphocytes (%) (Auto) 10.9 % (20.0-45.0) L Monocytes (%) (Auto) 7.0 % (1.0-10.0) Eosinophils (%) (Auto) 2.8 % (0.0-3.0) Basophils (%) (Auto) 1.1 % (0.0-2.0) Sodium Level 134 mEQ/L (135-145) L Potassium Level 4.2 mEQ/L (3.4-4.9) Chloride Level 95 mEQ/L (98-107) L Carbon Dioxide Level 26 mEQ/L (20-30) Anion Gap 13 (5-15) Blood Urea Nitrogen 18 mg/dL (7-23) Creatinine 0.5 mg/dL (0.7-1.2) L Estimat Glomerular Filtration Rate > 60 mL/min (>60) Glucose Level 142 mg/dL (74-106) H Calcium Level 8.4 mg/dL (8.6-10.2) L Total Bilirubin 0.2 mg/dL (0.0-1.2) Aspartate Amino Transf (AST/SGOT) 11 U/L (5-40) Alanine Aminotransferase (ALT/SGPT) 8 U/L (3-41) Alkaline Phosphatase 113 U/L (40-129) Pro-B-Type Natriuretic Peptide 711 pg/mL (0-125) H Total Protein 6.5 g/dL (6.6-8.7) L Albumin 1.6 g/dL (3.5-5.2) L Globulin 4.9 g/dL Albumin/Globulin Ratio 0.3 (1.0-2.7) L Current Medications Medications (Trade) Dose Ordered Sig/Shraddha Route PRN Reason Start Time Stop Time Status Last Admin Dose Admin Acetaminophen (Tylenol) 650 mg Q4H PRN ORAL FEVER 12/12/16 19:30 01/11/17 19:29 12/13/16 21:52 Albuterol/ Ipratropium (DuoNeb 0.5-3(2.5)mg/3ml) 3 ml Q4H PRN HHN Shortness of Breath 12/12/16 19:30 12/17/16 19:29 12/16/16 07:01 Dextrose STAT PRN IV Hypoglycemia 12/12/16 19:30 01/11/17 19:29 Heparin Sodium (Porcine) (Heparin 5000 units/ml) 5,000 units EVERY 12 HOURS SUBQ 12/12/16 21:00 01/11/17 20:59 12/16/16 08:33 Insulin Aspart (NovoLOG) BEFORE MEALS AND HS SUBQ 12/12/16 21:00 01/11/17 20:59 12/15/16 06:35 Lorazepam (Ativan 2mg/ml 1ml) 2 mg Q2H PRN IV For Anxiety 12/12/16 19:30 12/19/16 19:29 Morphine Sulfate (Morphine Sulfate) 4 mg Q4H PRN IVP Severe Pain (Pain Scale 7-10) 12/12/16 19:30 12/19/16 19:29 Ondansetron HCl (Zofran) 4 mg Q6H PRN IVP Nausea & Vomiting 12/12/16 19:30 01/11/17 19:29 Pantoprazole (Protonix) 40 mg DAILY IV 12/13/16 09:00 01/12/17 08:59 12/16/16 08:33 Polyethylene Glycol (Miralax) 17 gm DAILYPRN PRN ORAL Constipation 12/12/16 19:30 01/11/17 19:29 Promethazine HCl/ Codeine 5 ml 5 ml Q4H PRN ORAL For Cough 12/13/16 10:30 01/12/17 10:29 12/15/16 04:29 Sodium Chloride (Sodium Chloride 1000ml bag) 1,000 ml @ 75 mls/hr [id number] IV 12/12/16 19:30 01/11/17 19:29 12/15/16 23:22 Tigecycline/ Dextrose (Tygacil/D5W) 110 ml @ 220 mls/hr EVERY 12 HOURS IVPB 12/15/16 09:00 12/22/16 08:59 12/16/16 08:33 KIMBERLEE HINKLE M.D. Dec 16, 2016 10:55
--- NOTE | 2016-12-16 11:36 | Pulmonology Progress Note ---
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, consultants, onsite case manager Subjective ROS Limited/Unobtainable: No Constitutional: Reports: no symptoms HEENT: Repors: no symptoms Respiratory: Reports: no symptoms Allergies: Coded Allergies: No Known Allergies (Unverified , 06/17/16) Objective Last 24 Hour Vital Signs Date Time Temp Pulse Resp B/P Pulse Ox O2 Delivery O2 Flow Rate FiO2 12/16/16 10:46 89 18 40 12/16/16 08:36 91 18 40 12/16/16 08:00 40 12/16/16 08:00 95 12/16/16 08:00 98.2 86 16 119/81 100 Mechanical Ventilator 40 12/16/16 07:10 91 18 100 Mechanical Ventilator 12/16/16 07:00 87 18 100 Mechanical Ventilator 40 12/16/16 07:00 87 18 40 12/16/16 05:18 95 18 40 12/16/16 04:00 99.0 98 20 112/76 100 Mechanical Ventilator 40 12/16/16 04:00 40 12/16/16 04:00 101 12/16/16 03:23 103 22 40 12/16/16 01:05 93 16 40 12/16/16 00:00 40 12/16/16 00:00 98.4 100 18 117/78 Mechanical Ventilator 40 12/16/16 00:00 87 12/15/16 23:10 92 16 40 12/15/16 21:51 104 18 100 Mechanical Ventilator 40 12/15/16 21:00 94 16 40 12/15/16 20:00 40 12/15/16 20:00 97.7 80 18 102/75 100 Mechanical Ventilator 40 12/15/16 20:00 83 6/11/17 19:00 88 16 40 12/15/16 17:01 106 12/15/16 16:44 89 16 40 12/15/16 16:00 98.1 101 23 129/90 100 Mechanical Ventilator 40 12/15/16 16:00 40 12/15/16 15:02 91 16 40 12/15/16 13:30 99 18 100 Mechanical Ventilator 40 12/15/16 12:39 76 16 40 12/15/16 12:00 40 12/15/16 12:00 97.7 109 16 129/89 99 Mechanical Ventilator 40 12/15/16 11:46 80 Intake and Output 12/15/16 12/16/16 19:00 07:00 Intake Total 1092.5 ml 1495 ml Output Total 1100 ml 1750 ml Balance -7.5 ml -255 ml Intake Oral 120 ml Free Water 100 ml IV Total 972.5 ml 865 ml Tube Feeding 530 ml Output Urine Total 1100 ml 1750 ml # Bowel Movements 1 Objective General Appearance: cachetic Lines, tubes and drains: peripheral HEENT: normocephalic, atraumatic Neck: non-tender, normal alignment Respiratory/Chest: chest wall non-tender, lungs clear Breasts: no masses Cardiovascular/Chest: normal peripheral pulses Abdomen: normal bowel sounds, non tender Genitourinary/Rectal: normal genital exam Extremities: normal range of motion Laboratory Tests 12/15/16 16:00: Stool Occult Blood Positive 12/16/16 03:30: White Blood Count 12.4H, Red Blood Count 3.34L, Hemoglobin 9.6L, Hematocrit 30.0L, Mean Corpuscular Volume 90, Mean Corpuscular Hemoglobin 28.8, Mean Corpuscular Hemoglobin Concent 32.0, Red Cell Distribution Width 17.0H, Platelet Count 444, Mean Platelet Volume 6.0L, Neutrophils (%) (Auto) 78.2H, Lymphocytes (%) (Auto) 10.9L, Monocytes (%) (Auto) 7.0, Eosinophils (%) (Auto) 2.8, Basophils (%) (Auto) 1.1, Sodium Level 134L, Potassium Level 4.2, Chloride Level 95L, Carbon Dioxide Level 26, Anion Gap 13, Blood Urea Nitrogen 18, Creatinine 0.5L, Estimat Glomerular Filtration Rate > 60, Glucose Level 142H, Calcium Level 8.4L, Total Bilirubin 0.2, Aspartate Amino Transf (AST/SGOT) 11, Alanine Aminotransferase (ALT/SGPT) 8, Alkaline Phosphatase 113, Pro-B-Type Natriuretic Peptide 711H, Total Protein 6.5L, Albumin 1.6L, Globulin 4.9, Albumin/Globulin Ratio 0.3L Current Medications Medications (Trade) Dose Ordered Sig/Shraddha Route PRN Reason Start Time Stop Time Status Last Admin Dose Admin Acetaminophen (Tylenol) 650 mg Q4H PRN ORAL FEVER 12/12/16 19:30 01/11/17 19:29 12/13/16 21:52 Albuterol/ Ipratropium (DuoNeb 0.5-3(2.5)mg/3ml) 3 ml Q4H PRN HHN Shortness of Breath 12/12/16 19:30 12/17/16 19:29 12/16/16 07:01 Dextrose STAT PRN IV Hypoglycemia 12/12/16 19:30 01/11/17 19:29 Heparin Sodium (Porcine) (Heparin 5000 units/ml) 5,000 units EVERY 12 HOURS SUBQ 12/12/16 21:00 01/11/17 20:59 12/16/16 08:33 Insulin Aspart (NovoLOG) BEFORE MEALS AND HS SUBQ 12/12/16 21:00 01/11/17 20:59 12/15/16 06:35 Lorazepam (Ativan 2mg/ml 1ml) 2 mg Q2H PRN IV For Anxiety 12/12/16 19:30 12/19/16 19:29 Morphine Sulfate (Morphine Sulfate) 4 mg Q4H PRN IVP Severe Pain (Pain Scale 7-10) 12/12/16 19:30 12/19/16 19:29 Ondansetron HCl (Zofran) 4 mg Q6H PRN IVP Nausea & Vomiting 12/12/16 19:30 01/11/17 19:29 Pantoprazole (Protonix) 40 mg DAILY IV 12/13/16 09:00 01/12/17 08:59 12/16/16 08:33 Polyethylene Glycol (Miralax) 17 gm DAILYPRN PRN ORAL Constipation 12/12/16 19:30 01/11/17 19:29 Promethazine HCl/ Codeine 5 ml 5 ml Q4H PRN ORAL For Cough 12/13/16 10:30 01/12/17 10:29 12/15/16 04:29 Sodium Chloride (Sodium Chloride 1000ml bag) 1,000 ml @ 75 mls/hr [id number] IV 12/12/16 19:30 01/11/17 19:29 12/15/16 23:22 Tigecycline/ Dextrose (Tygacil/D5W) 110 ml @ 220 mls/hr EVERY 12 HOURS IVPB 12/15/16 09:00 12/22/16 08:59 12/16/16 08:33 REN WRIGHT Dec 16, 2016 11:36
[2016-12-16 12:00] VITALS: BP 109/77
--- NOTE | 2016-12-16 14:49 | GI Initial Consult Note ---
Angeles Galloway N.PAmaury 12/16/16 1449: History of Present Illness General Date patient seen: Dec 16, 2016 Time patient seen: 13:00 Reason for Hospitalization: Dyspnea/Respdistress Referring physician: TAD BENDER Reason for Consultation: COLONIC MASS Present Illness HPI 66-year-old male presents to ED complaining of shortness of breath. Per EMS patient felt short of breath at the assisted today. Tachycardic. O2 sats were low. Upon arrival to his saturations are improved. Patient has a tracheostomy. States that he feels that his trach is blocked. Denies fevers chills. Denies chest pain. Denies cough. No other aggravating or relieving factors. Denies any other associated symptoms GI CONSULT. HPI as noted above. GI consulted for cecal mass. ROS limited, patient trach s/p PEG 10/04/16 here at [facility]. Pt seen on floor, awake A&O NAD trach to vent with PEG. Presents today with cecal mass viewed by [facility] on 11/06/16 , anemia, occult blood positive and leukocytosis. Service Date: 11/06/16 Procedure: CT Abdomen Pelvis WO Contrast Indication: Abdominal pain, severe sepsis, abdominal distention, respiratory failure, colonic mass Impression: Since previous exam of 2 days earlier, marked worsening of right lower lobe dense consolidation, consistent with rapidly progressing pneumonia. There may be some associated pleural fluid. Large cecal mass and other polypoid colonic masses, detailed previously, again demonstrated Distal sigmoid or rectum is distended by fluid, could indicate diarrhea Previously questioned area gastric antral wall thickening is nondistended, previous finding presumed artifactual due to lack of distention. COPD changes, also previously described Suggestion of slightly increased pericardial fluid Mild anasarca, with diffuse edema of the subcutaneous and abdominal fat, slightly increased from previous study Massive right scrotal hydrocele Marked increase in amount since previous study. However, no evidence of obstruction or strangulation of bowel within the left inguinal hernia Hepatomegaly Home Meds Reported Medications Multivits W-Min/Ferrous Gluc (CENTRUM MULTIVIT-MINERAL LIQ) 9 Mg/15 Ml Liquid, 9 MG GT DAILY 12/12/16 Polyethylene Glycol 3350* (MIRALAX*) 17 Gm Powd.pack, 17 GM GT BEDTIME 12/12/16 Acetaminophen (Acetaminophen) 650 Mg/20.3 Ml Solution, 650 MG GT Q4HR Y for Fever/Headache/Mild Pain, 0 Refills 12/12/16 Budesonide (BUDESONIDE) 0.25 Mg/2 Ml Ampul.neb, 0.25 MG IH BID 12/12/16 Magnesium Hydroxide* (MILK OF MAGNESIA*) 400 Mg/5 Ml Oral.susp, 30 ML GT Y for Constipation 12/12/16 Magnesium Hydroxide* (MILK OF MAGNESIA*) 400 Mg/5 Ml Oral.susp, 30 ML GT BEDTIME for Constipation, ML 12/12/16 Metoprolol Tartrate* (METOPROLOL TARTRATE*) 25 Mg Tablet, 12.5 MG GT EVERY OTHER DAY 12/12/16 Prednisone (PREDNISONE) 5 Mg Tablet, 5 MG GT DAILY 12/12/16 Omeprazole (OMEPRAZOLE) 20 Mg Capsule.dr, 20 MG GT DAILY 12/12/16 Vit C/Ascorbate Ca/Ascorb Sod (VITAMIN C 500 MG/15 ML LIQUID) 500 Mg/15 Ml Liquid, 500 MG GT DAILY 12/12/16 Cran/Vitc/Mannose/Inulin/Brom (UTI-STAT LIQUID) 3,875 Mg/30 Ml Liquid, 3875 MG GT DAILY 12/12/16 Guaifenesin (GUAIFENESIN) 200 Mg Tablet, 200 MG GT EVERY 12 HOURS for For Cough , 0 Refills 12/12/16 Folic Acid* (FOLIC ACID*) 1 Mg Tablet, 1 MG GT DAILY 12/12/16 Benzonatate* (BENZONATATE*) 100 Mg Capsule, 100 MG GT THREE TIMES A DAY 12/12/16 Na Phos,M-B/Na Phos,Di-Ba* (FLEET ENEMA*) 133 Ml Enema, 118 ML RECTAL Y for Constipation, 0 Refills 12/12/16 Bisacodyl (DULCOLAX) 10 Mg Supp.rect, 10 MG RC Y for Constipation 12/12/16 Discontinued Scripts Levofloxacin* (LEVAQUIN*) 500 Mg Tablet, 500 MG ORAL DAILY for 10 Days, TAB Prov:Tad Bender MD 11/29/16 Polyethylene Glycol 3350* (MIRALAX*) 17 Gm Powd.pack, 17 GM ORAL BEDTIME for 30 Days, PACK Prov:Tad Bender MD 11/29/16 Insulin Aspart (Novolog Flexpen) 100 Unit/1 Ml Insuln.pen, 0 UNITS SUBQ Q6HR for 30 Days, EA Prov:Tad Bender MD 11/29/16 Chlorhexidine Gluconate* (HIBICLENS*) 118 Ml Liquid, 1 APPLIC TOPIC DAILY for 30 Days, ML Prov:Tad Bender MD 11/29/16 Ipratropium [place] 0.5MG/2.5ML (IPRATROPIUM BROMIDE 0.5MG/2.5ML) 0.2 Mg/1 Ml Solution, 500 MCG HHN Q6HRT for 30 Days, #1 EA Prov:Tad Bender MD 06/25/16 Med list reviewed/reconciled: Yes Allergies: Coded Allergies: No Known Allergies (Unverified , 06/17/16) Patient History Limited by: medical condition History Provided By: Medical Record PMH Narrative Past Medical History: DM, HTN Past Surgical History: other - trach Pertinent Family History: none Social History: Denies: alcohol use, drug use, smoking Immunizations: UTD Reviewed Nursing Documentation: PMH: Agreed, PSxH: Agreed Nursing Documentation-PMH Hx Cardiac Problems: Yes Hx Hypertension: Yes Hx Diabetes: Yes Hx Cancer: No Hx Gastrointestinal Problems: Yes - esophagitis Hx Dialysis: No Hx Neurological Problems: No - metabolic encephalopathy Hx Cerebrovascular Accident: No Hx Seizures: No Hx Concentration Difficulty: Yes Hx Dysphasia: Yes - dysphagia Hx Weakness: Yes Review of Systems All Other Systems: limited Physical Exam Vital Signs Date Time Temp Pulse Resp B/P Pulse Ox O2 Delivery O2 Flow Rate FiO2 12/12/16 17:03 97.9 120 18 109/84 100 Mechanical Ventilator 12/12/16 17:33 40 Sp02 EP Interpretation: reviewed Labs Laboratory Tests Test 12/15/16 16:00 12/16/16 03:30 12/16/16 10:30 12/16/16 12:13 Stool Occult Blood Positive (NEGATIVE) White Blood Count 12.4 K/UL (4.8-10.8) H Red Blood Count 3.34 M/UL (4.70-6.10) L Hemoglobin 9.6 G/DL (14.2-18.0) L Hematocrit 30.0 % (42.0-52.0) L Mean Corpuscular Volume 90 FL (80-99) Mean Corpuscular Hemoglobin 28.8 PG (27.0-31.0) Mean Corpuscular Hemoglobin Concent 32.0 G/DL (32.0-36.0) Red Cell Distribution Width 17.0 % (11.6-14.8) H Platelet Count 444 K/UL (150-450) Mean Platelet Volume 6.0 FL (6.5-10.1) L Neutrophils (%) (Auto) 78.2 % (45.0-75.0) H Lymphocytes (%) (Auto) 10.9 % (20.0-45.0) L Monocytes (%) (Auto) 7.0 % (1.0-10.0) Eosinophils (%) (Auto) 2.8 % (0.0-3.0) Basophils (%) (Auto) 1.1 % (0.0-2.0) Sodium Level 134 mEQ/L (135-145) L Potassium Level 4.2 mEQ/L (3.4-4.9) Chloride Level 95 mEQ/L (98-107) L Carbon Dioxide Level 26 mEQ/L (20-30) Anion Gap 13 (5-15) Blood Urea Nitrogen 18 mg/dL (7-23) Creatinine 0.5 mg/dL (0.7-1.2) L Estimat Glomerular Filtration Rate > 60 mL/min (>60) Glucose Level 142 mg/dL (74-106) H Calcium Level 8.4 mg/dL (8.6-10.2) L Total Bilirubin 0.2 mg/dL (0.0-1.2) Aspartate Amino Transf (AST/SGOT) 11 U/L (5-40) Alanine Aminotransferase (ALT/SGPT) 8 U/L (3-41) Alkaline Phosphatase 113 U/L (40-129) Pro-B-Type Natriuretic Peptide 711 pg/mL (0-125) H Total Protein 6.5 g/dL (6.6-8.7) L Albumin 1.6 g/dL (3.5-5.2) L Globulin 4.9 g/dL Albumin/Globulin Ratio 0.3 (1.0-2.7) L Body Fluid Source Pending Body Fluid Volume Pending Body Fluid Appearance Pending Body Fluid RBC Pending Body Fluid Total Nucleated Cells Pending Body Fluid Polynuclear WBCs (%) Pending Body Fluid Mononuclear WBCs (%) Pending Body Fluid Mesothelial Cells (%) Pending Body Fluid Lactate Dehydrogenase Pending Body Fluid Glucose Pending Body Fluid Total Protein Pending Body Fluid Albumin Pending General Appearance: well appearing, no apparent distress, alert Head: normocephalic EENT: normal ENT inspection Neck: supple Respiratory: other - mech vent Cardiovascular: normal rate Gastrointestinal: gt - c/d/i Rectal: deferred Musculoskeletal: back normal Neurologic: normal inspection, alert, oriented x3 Psychiatric: normal inspection, judgement/insight normal, memory normal Skin: normal inspection, normal color, no rash Lymphatic: normal inspection, no adenopathy Current Medications Current Medications Medications (Trade) Dose Ordered Sig/Shraddha Route PRN Reason Start Time Stop Time Status Last Admin Dose Admin Acetaminophen (Tylenol) 650 mg Q4H PRN ORAL FEVER 12/12/16 19:30 01/11/17 19:29 12/13/16 21:52 Albuterol/ Ipratropium (DuoNeb 0.5-3(2.5)mg/3ml) 3 ml Q4H PRN HHN Shortness of Breath 12/12/16 19:30 12/17/16 19:29 12/16/16 07:01 Dextrose STAT PRN IV Hypoglycemia 12/12/16 19:30 01/11/17 19:29 Heparin Sodium (Porcine) (Heparin 5000 units/ml) 5,000 units EVERY 12 HOURS SUBQ 12/12/16 21:00 01/11/17 20:59 12/16/16 08:33 Insulin Aspart (NovoLOG) BEFORE MEALS AND HS SUBQ 12/12/16 21:00 01/11/17 20:59 12/15/16 06:35 Lorazepam (Ativan 2mg/ml 1ml) 2 mg Q2H PRN IV For Anxiety 12/12/16 19:30 12/19/16 19:29 Morphine Sulfate (Morphine Sulfate) 4 mg Q4H PRN IVP Severe Pain (Pain Scale 7-10) 12/12/16 19:30 12/19/16 19:29 Ondansetron HCl (Zofran) 4 mg Q6H PRN IVP Nausea & Vomiting 12/12/16 19:30 01/11/17 19:29 Pantoprazole (Protonix) 40 mg DAILY IV 12/13/16 09:00 01/12/17 08:59 12/16/16 08:33 Polyethylene Glycol (Miralax) 17 gm DAILYPRN PRN ORAL Constipation 12/12/16 19:30 01/11/17 19:29 Polyethylene Glycol/ Electrolytes (Nulytely) 4,000 ml ONCE ONCE ORAL 12/16/16 16:00 12/16/16 16:01 Promethazine HCl/ Codeine 5 ml 5 ml Q4H PRN ORAL For Cough 12/13/16 10:30 01/12/17 10:29 12/15/16 04:29 Sodium Chloride (Sodium Chloride 1000ml bag) 1,000 ml @ 75 mls/hr [id number] IV 12/12/16 19:30 01/11/17 19:29 12/16/16 13:00 Sodium Phosphate (Fleet's Sodium Phosl Enema) 133 ml ONCE ONCE RECTAL 12/16/16 23:00 12/16/16 23:01 Tigecycline/ Dextrose (Tygacil/D5W) 110 ml @ 220 mls/hr EVERY 12 HOURS IVPB 12/15/16 09:00 12/22/16 08:59 12/16/16 08:33 GI: Plan Problems: (1) Mass of colon (2) Feeding by G-tube (3) Anemia (4) Leukocytosis (5) Positive occult stool blood test (6) Hypoalbuminemia Plan [facility] reviewed >> cecal mass s/p EGD/PEG 10/04/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 - Maintain NPO + IVFs. - Hold GT feedings tonight. monitor H&H, transfuse prn ppi fu labs Discussed with Dr. Estevez. Thank you for referring this patient, we will follow. JULIANNE ESTEVEZ 12/18/16 1002: History of Present Illness General Reason for Hospitalization: Dyspnea/Respdistress Present Illness Home Meds Reported Medications Multivits W-Min/Ferrous Gluc (CENTRUM MULTIVIT-MINERAL LIQ) 9 Mg/15 Ml Liquid, 9 MG GT DAILY 12/12/16 Polyethylene Glycol 3350* (MIRALAX*) 17 Gm Powd.pack, 17 GM GT BEDTIME 12/12/16 Acetaminophen (Acetaminophen) 650 Mg/20.3 Ml Solution, 650 MG GT Q4HR Y for Fever/Headache/Mild Pain, 0 Refills 12/12/16 Budesonide (BUDESONIDE) 0.25 Mg/2 Ml Ampul.neb, 0.25 MG IH BID 12/12/16 Magnesium Hydroxide* (MILK OF MAGNESIA*) 400 Mg/5 Ml Oral.susp, 30 ML GT Y for Constipation 12/12/16 Magnesium Hydroxide* (MILK OF MAGNESIA*) 400 Mg/5 Ml Oral.susp, 30 ML GT BEDTIME for Constipation, ML 12/12/16 Metoprolol Tartrate* (METOPROLOL TARTRATE*) 25 Mg Tablet, 12.5 MG GT EVERY OTHER DAY 12/12/16 Prednisone (PREDNISONE) 5 Mg Tablet, 5 MG GT DAILY 12/12/16 Omeprazole (OMEPRAZOLE) 20 Mg Capsule.dr, 20 MG GT DAILY 12/12/16 Vit C/Ascorbate Ca/Ascorb Sod (VITAMIN C 500 MG/15 ML LIQUID) 500 Mg/15 Ml Liquid, 500 MG GT DAILY 12/12/16 Cran/Vitc/Mannose/Inulin/Brom (UTI-STAT LIQUID) 3,875 Mg/30 Ml Liquid, 3875 MG GT DAILY 12/12/16 Guaifenesin (GUAIFENESIN) 200 Mg Tablet, 200 MG GT EVERY 12 HOURS for For Cough , 0 Refills 12/12/16 Folic Acid* (FOLIC ACID*) 1 Mg Tablet, 1 MG GT DAILY 12/12/16 Benzonatate* (BENZONATATE*) 100 Mg Capsule, 100 MG GT THREE TIMES A DAY 12/12/16 Na Phos,M-B/Na Phos,Di-Ba* (FLEET ENEMA*) 133 Ml Enema, 118 ML RECTAL Y for Constipation, 0 Refills 12/12/16 Bisacodyl (DULCOLAX) 10 Mg Supp.rect, 10 MG RC Y for Constipation 12/12/16 Discontinued Scripts Levofloxacin* (LEVAQUIN*) 500 Mg Tablet, 500 MG ORAL DAILY for 10 Days, TAB Prov:Tad Bender MD 11/29/16 Polyethylene Glycol 3350* (MIRALAX*) 17 Gm Powd.pack, 17 GM ORAL BEDTIME for 30 Days, PACK Prov:Tad Bender MD 11/29/16 Insulin Aspart (Novolog Flexpen) 100 Unit/1 Ml Insuln.pen, 0 UNITS SUBQ Q6HR for 30 Days, EA Prov:Tad Bender MD 11/29/16 Chlorhexidine Gluconate* (HIBICLENS*) 118 Ml Liquid, 1 APPLIC TOPIC DAILY for 30 Days, ML Prov:Tad Bender MD 11/29/16 Ipratropium [place] 0.5MG/2.5ML (IPRATROPIUM BROMIDE 0.5MG/2.5ML) 0.2 Mg/1 Ml Solution, 500 MCG HHN Q6HRT for 30 Days, #1 EA Prov:Tad Bender MD 06/25/16 Allergies: Coded Allergies: No Known Allergies (Unverified , 06/17/16) GI: Plan Plan The patient was seen and examined at bedside and all new and available data was reviewed in the patients chart. I agree with the above findings, impression and plan. (Patient seen earlier today. Signature stamp does not reflect patient encounter time.). -Leslie West MDh Reggie Ram Dec 16, 2016 14:49 JULIANNE ESTEVEZ Dec 18, 2016 10:02
[2016-12-16 16:00] VITALS: BP 109/84
[2016-12-16] MEDS ORDERED: Nulytely 4L ORAL ONE (16:00)
[2016-12-16] MEDS ORDERED: Ipratropium 0.02% Inh Soln 2.5ml UD ONE (18:44)
[2016-12-16] MEDS ORDERED: Albuterol ud Inhalation ONE (18:44)
--- NOTE | 2016-12-16 18:51 | Cardiac Electrophysiology PN ---
Assessment/Plan Assessment/Plan 1. Sinus tachycardia. due to underlying sepsis and respiratory failure. No supraventricular tachycardia or atrial fibrillation. 2. Hypotension, likely due to sepsis, currently off pressors. 3. Severe chronic obstructive pulmonary disease and pulmonary hypertension. 4. Pneumonia, on broad-spectrum IV antibiotics. 5. Ventilator-dependent respiratory failure, status post tracheostomy. 6. Status post percutaneous endoscopic gastrostomy placement. 7. Colorectal mass, status post transfusion.Getting EGD and colonoscopy tomorrow.Stable from cardiac stand point. 8. Pleural effusion, status post thoracentesis on 11/21/2016 and 12/14/16 DW RN Subjective Subjective Comfortable in NAD. In JORDAN on vent via trach. RNs at bedside.Getting Golyt[facility] for colonoscopy tomorrow. Objective Last 24 Hour Vital Signs Date Time Temp Pulse Resp B/P Pulse Ox O2 Delivery O2 Flow Rate FiO2 12/16/16 17:30 89 18 40 12/16/16 16:00 98.2 92 20 109/84 100 Mechanical Ventilator 40 12/16/16 16:00 92 12/16/16 16:00 40 12/16/16 14:21 88 18 40 12/16/16 12:41 90 18 40 12/16/16 12:00 98.2 88 17 109/77 100 Mechanical Ventilator 40 12/16/16 12:00 40 12/16/16 12:00 98 12/16/16 10:46 89 18 40 12/16/16 08:36 91 18 40 12/16/16 08:00 40 12/16/16 08:00 95 12/16/16 08:00 98.2 86 16 119/81 100 Mechanical Ventilator 40 12/16/16 07:10 91 18 100 Mechanical Ventilator 12/16/16 07:00 87 18 100 Mechanical Ventilator 40 12/16/16 07:00 87 18 40 12/16/16 05:18 95 18 40 12/16/16 04:00 99.0 98 20 112/76 100 Mechanical Ventilator 40 12/16/16 04:00 40 12/16/16 04:00 101 12/16/16 03:23 103 22 40 12/16/16 01:05 93 16 40 12/16/16 00:00 40 12/16/16 00:00 98.4 100 18 117/78 Mechanical Ventilator 40 12/16/16 00:00 87 12/15/16 23:10 92 16 40 12/15/16 21:51 104 18 100 Mechanical Ventilator 40 12/15/16 21:00 94 16 40 12/15/16 20:00 40 12/15/16 20:00 97.7 80 18 102/75 100 Mechanical Ventilator 40 12/15/16 20:00 83 12/15/16 19:00 88 16 40 Intake and Output 12/15/16 12/16/16 19:00 07:00 Intake Total 1092.5 ml 1495 ml Output Total 1100 ml 1750 ml Balance -7.5 ml -255 ml Intake Oral 120 ml Free Water 100 ml IV Total 972.5 ml 865 ml Tube Feeding 530 ml Output Urine Total 1100 ml 1750 ml # Bowel Movements 1 Laboratory Tests Test 12/16/16 03:30 12/16/16 10:30 12/16/16 12:13 White Blood Count 12.4 K/UL (4.8-10.8) H Red Blood Count 3.34 M/UL (4.70-6.10) L Hemoglobin 9.6 G/DL (14.2-18.0) L Hematocrit 30.0 % (42.0-52.0) L Mean Corpuscular Volume 90 FL (80-99) Mean Corpuscular Hemoglobin 28.8 PG (27.0-31.0) Mean Corpuscular Hemoglobin Concent 32.0 G/DL (32.0-36.0) Red Cell Distribution Width 17.0 % (11.6-14.8) H Platelet Count 444 K/UL (150-450) Mean Platelet Volume 6.0 FL (6.5-10.1) L Neutrophils (%) (Auto) 78.2 % (45.0-75.0) H Lymphocytes (%) (Auto) 10.9 % (20.0-45.0) L Monocytes (%) (Auto) 7.0 % (1.0-10.0) Eosinophils (%) (Auto) 2.8 % (0.0-3.0) Basophils (%) (Auto) 1.1 % (0.0-2.0) Sodium Level 134 mEQ/L (135-145) L Potassium Level 4.2 mEQ/L (3.4-4.9) Chloride Level 95 mEQ/L (98-107) L Carbon Dioxide Level 26 mEQ/L (20-30) Anion Gap 13 (5-15) Blood Urea Nitrogen 18 mg/dL (7-23) Creatinine 0.5 mg/dL (0.7-1.2) L Estimat Glomerular Filtration Rate > 60 mL/min (>60) Glucose Level 142 mg/dL (74-106) H Calcium Level 8.4 mg/dL (8.6-10.2) L Total Bilirubin 0.2 mg/dL (0.0-1.2) Aspartate Amino Transf (AST/SGOT) 11 U/L (5-40) Alanine Aminotransferase (ALT/SGPT) 8 U/L (3-41) Alkaline Phosphatase 113 U/L (40-129) Pro-B-Type Natriuretic Peptide 711 pg/mL (0-125) H Total Protein 6.5 g/dL (6.6-8.7) L Albumin 1.6 g/dL (3.5-5.2) L Globulin 4.9 g/dL Albumin/Globulin Ratio 0.3 (1.0-2.7) L Body Fluid Source Pending Body Fluid Volume Pending Body Fluid Appearance Pending Body Fluid RBC Pending Body Fluid Total Nucleated Cells Pending Body Fluid Polynuclear WBCs (%) Pending Body Fluid Mononuclear WBCs (%) Pending Body Fluid Mesothelial Cells (%) Pending Body Fluid Lactate Dehydrogenase Pending Body Fluid Glucose Pending Body Fluid Total Protein Pending Body Fluid Albumin Pending Objective HEAD AND NECK: Shows no JVD. Status post tracheostomy. LUNGS: Have coarse rhonchi. CARDIOVASCULAR: Tachycardic S1, S2 with no gallop or murmur. ABDOMEN: Soft. EXTREMITIES: One plus edema. OSWALD HILLS Dec 16, 2016 18:51
--- NOTE | 2016-12-16 19:17 | Internal Med Progress Note ---
Subjective Date of Service: Dec 16, 2016 Physician Name Verdin,Tadeo Attending Physician Steve Rader MD Current Medications Medications (Trade) Dose Ordered Sig/Shraddha Route PRN Reason Start Time Stop Time Status Last Admin Dose Admin Acetaminophen (Tylenol) 650 mg Q4H PRN ORAL FEVER 12/12/16 19:30 01/11/17 19:29 12/13/16 21:52 Albuterol/ Ipratropium (DuoNeb 0.5-3(2.5)mg/3ml) 3 ml Q4H PRN HHN Shortness of Breath 12/12/16 19:30 12/17/16 19:29 12/16/16 07:01 Dextrose STAT PRN IV Hypoglycemia 12/12/16 19:30 01/11/17 19:29 Heparin Sodium (Porcine) (Heparin 5000 units/ml) 5,000 units EVERY 12 HOURS SUBQ 12/12/16 21:00 01/11/17 20:59 12/16/16 08:33 Insulin Aspart (NovoLOG) BEFORE MEALS AND HS SUBQ 12/12/16 21:00 01/11/17 20:59 12/15/16 06:35 Lorazepam (Ativan 2mg/ml 1ml) 2 mg Q2H PRN IV For Anxiety 12/12/16 19:30 12/19/16 19:29 Morphine Sulfate (Morphine Sulfate) 4 mg Q4H PRN IVP Severe Pain (Pain Scale 7-10) 12/12/16 19:30 12/19/16 19:29 Ondansetron HCl (Zofran) 4 mg Q6H PRN IVP Nausea & Vomiting 12/12/16 19:30 01/11/17 19:29 Pantoprazole (Protonix) 40 mg DAILY IV 12/13/16 09:00 01/12/17 08:59 12/16/16 08:33 Polyethylene Glycol (Miralax) 17 gm DAILYPRN PRN ORAL Constipation 12/12/16 19:30 01/11/17 19:29 Promethazine HCl/ Codeine 5 ml 5 ml Q4H PRN ORAL For Cough 12/13/16 10:30 01/12/17 10:29 12/15/16 04:29 Sodium Chloride (Sodium Chloride 1000ml bag) 1,000 ml @ 75 mls/hr [id number] IV 12/12/16 19:30 01/11/17 19:29 12/16/16 13:00 Sodium Phosphate (Fleet's Sodium Phosl Enema) 133 ml ONCE ONCE RECTAL 12/16/16 23:00 12/16/16 23:01 Tigecycline/ Dextrose (Tygacil/D5W) 110 ml @ 220 mls/hr EVERY 12 HOURS IVPB 12/15/16 09:00 12/22/16 08:59 12/16/16 08:33 Allergies: Coded Allergies: No Known Allergies (Unverified , 06/17/16) ROS Limited/Unobtainable: Yes Subjective 66 YO M admitted for shortness of breath and tachycardia. Intubated and sedated. JORDAN. Cover for Int Med-Dr Rader. Objective Last Vital Signs Date Time Temp Pulse Resp B/P Pulse Ox O2 Delivery O2 Flow Rate FiO2 12/16/16 17:30 89 18 40 12/16/16 16:00 98.2 109/84 100 Mechanical Ventilator Laboratory Tests Test 12/16/16 03:30 12/16/16 10:30 12/16/16 12:13 White Blood Count 12.4 K/UL (4.8-10.8) H Red Blood Count 3.34 M/UL (4.70-6.10) L Hemoglobin 9.6 G/DL (14.2-18.0) L Hematocrit 30.0 % (42.0-52.0) L Mean Corpuscular Volume 90 FL (80-99) Mean Corpuscular Hemoglobin 28.8 PG (27.0-31.0) Mean Corpuscular Hemoglobin Concent 32.0 G/DL (32.0-36.0) Red Cell Distribution Width 17.0 % (11.6-14.8) H Platelet Count 444 K/UL (150-450) Mean Platelet Volume 6.0 FL (6.5-10.1) L Neutrophils (%) (Auto) 78.2 % (45.0-75.0) H Lymphocytes (%) (Auto) 10.9 % (20.0-45.0) L Monocytes (%) (Auto) 7.0 % (1.0-10.0) Eosinophils (%) (Auto) 2.8 % (0.0-3.0) Basophils (%) (Auto) 1.1 % (0.0-2.0) Sodium Level 134 mEQ/L (135-145) L Potassium Level 4.2 mEQ/L (3.4-4.9) Chloride Level 95 mEQ/L (98-107) L Carbon Dioxide Level 26 mEQ/L (20-30) Anion Gap 13 (5-15) Blood Urea Nitrogen 18 mg/dL (7-23) Creatinine 0.5 mg/dL (0.7-1.2) L Estimat Glomerular Filtration Rate > 60 mL/min (>60) Glucose Level 142 mg/dL (74-106) H Calcium Level 8.4 mg/dL (8.6-10.2) L Total Bilirubin 0.2 mg/dL (0.0-1.2) Aspartate Amino Transf (AST/SGOT) 11 U/L (5-40) Alanine Aminotransferase (ALT/SGPT) 8 U/L (3-41) Alkaline Phosphatase 113 U/L (40-129) Pro-B-Type Natriuretic Peptide 711 pg/mL (0-125) H Total Protein 6.5 g/dL (6.6-8.7) L Albumin 1.6 g/dL (3.5-5.2) L Globulin 4.9 g/dL Albumin/Globulin Ratio 0.3 (1.0-2.7) L Body Fluid Source Pending Body Fluid Volume Pending Body Fluid Appearance Pending Body Fluid RBC Pending Body Fluid Total Nucleated Cells Pending Body Fluid Polynuclear WBCs (%) Pending Body Fluid Mononuclear WBCs (%) Pending Body Fluid Mesothelial Cells (%) Pending Body Fluid Lactate Dehydrogenase Pending Body Fluid Glucose Pending Body Fluid Total Protein Pending Body Fluid Albumin Pending Intake and Output 12/15/16 12/16/16 19:00 07:00 Intake Total 1092.5 ml 1495 ml Output Total 1100 ml 1750 ml Balance -7.5 ml -255 ml Intake Oral 120 ml Free Water 100 ml IV Total 972.5 ml 865 ml Tube Feeding 530 ml Output Urine Total 1100 ml 1750 ml # Bowel Movements 1 Objective General Appearance: lethargic, thin EENT: PERRL/EOMI, normal ENT inspection Neck: Trach; non-tender, normal alignment, supple Cardiovascular: normal peripheral pulses, regular rhythm, no gallop/murmur, no JVD, tachycardia Respiratory/Chest: chest wall non-tender, crackles/rales, rhonchi - bilaterally , expiratory wheezing Abdomen: normal bowel sounds, non tender, soft, no organomegaly, no mass 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 See ID note. D/C vanco and amikacin. Start tygacil. (2) Tachycardia (3) SOB (shortness of breath) Assessment & Plan: Due to pneurmonia. (4) Hypertension (5) Acute and chronic respiratory failure Assessment & Plan: Currently on Mech vent. See pulmonary note. (6) Emphysema lung (7) Lung abscess (8) Mass of colon (9) Pneumonia Assessment & Plan: see pulmonary and ID note. Status: not improved TADEO VERDIN Dec 16, 2016 19:17
[2016-12-16 20:00] VITALS: BP 118/86
[2016-12-16] MEDS ORDERED: Fleet's Enema 133ml RECTAL ONE (23:00)
[2016-12-17] VITALS: BP 120/85
[2016-12-17 04:00] VITALS: BP 107/67
[2016-12-17 05:33] LABS: INR 1.4 (0.9-1.1)
[2016-12-17 05:46] LABS: BASOPHILS % (AUTO) 0.8 % (0.0-2.0); EOSINOPHILS % (AUTO) 2.3 % (0.0-3.0); LYMPHOCYTES % (AUTO) 10.8 % (20.0-45.0); MEAN CORPUSCULAR HEMOGLOBIN 28.8 PG (27.0-31.0); MEAN CORPUSCULAR HGB CONC 32.2 G/DL (32.0-36.0); MEAN CORPUSCULAR VOLUME 90 FL (80-99); MEAN PLATELET VOLUME 5.7 FL (6.5-10.1); MONOCYTES % (AUTO) 7.9 % (1.0-10.0); NEUTROPHILS % (AUTO) 78.2 % (45.0-75.0); PLATELET COUNT 431 K/UL (150-450); RED BLOOD COUNT 3.32 M/UL (4.70-6.10); RED CELL DISTRIBUTION WIDTH 16.4 % (11.6-14.8)
[2016-12-17 05:57] LABS: ALANINE AMINOTRANSFERASE 9 U/L (3-41); ALBUMIN/GLOBULIN RATIO 0.3 (1.0-2.7); ANION GAP 10 (5-15); ASPARTATE AMINO TRANSFERASE 14 U/L (5-40); CALCIUM 8.4 mg/dL (8.6-10.2); CARBON DIOXIDE 28 mEQ/L (20-30); CHLORIDE 99 mEQ/L (98-107); CREATININE 0.4 mg/dL (0.7-1.2); GLOMERULAR FILTRATION RATE > 60 mL/min (>60); HEMOLYSIS 4; POTASSIUM 4.3 mEQ/L (3.4-4.9); SODIUM 137 mEQ/L (135-145); TOTAL PROTEIN 6.5 g/dL (6.6-8.7)
[2016-12-17] MEDS: NovoLOG Insulin Flexpen SUBQ SCH ×4 (06:30→21:00)
[2016-12-17 08:00] VITALS: BP 101/71
[2016-12-17] MEDS: Heparin 5000 units/ml inj SUBQ SCH ×2 (09:00→21:00)
[2016-12-17] MEDS: Tigecycline 50 MG in D5W 110 ML IVPB SCH ×2 (10:17→21:18)
[2016-12-17] MEDS: Pantoprazole Inj IV SCH (10:17)
--- NOTE | 2016-12-17 11:04 | Diagnostic Imaging Report ---
Indication: DYSPNEA Technique: One view of the chest Comparison: 12/15/2016 Findings: There is suggestion of slightly increased opacification of the right mid and lower lung periphery which may indicate increasing pleural fluid. Hazy parenchymal consolidation throughout the right lung persists and is unchanged. Right lung volume loss relative to the left lung persists. Left lung remains hyperinflated. Left lung and pleural space remain clear. Tracheostomy remains. Impression: Possible increasing right pleural effusion, over one day Persistent right lung parenchymal disease Other stable findings as described
--- NOTE | 2016-12-17 11:24 | Pulmonology Progress Note ---
Assessment/Plan Problems: (1) Acute and chronic respiratory failure (2) Feeding by G-tube (3) Emphysema lung (4) Pleural effusion on right Assessment & Plan: s/p thoracentesis and removal of 500 cc fluid Respiratory: monitor respiratory rate, adjust FIO2 Cardiac: continue pressors, continue to monitor HR/BP Renal: F/U I&O, keep IV fluid, increase IV fluid, check electrolytes Infectious Disease: check cultures, continue antibiotics Gastrointestinal: continue feedings/current rate Endocrine: monitor blood sugar Hematologic: monitor H/H, transfuse if hgb<8.5 Neurologic: PRN Ativan, PRN Morphine, keep patient comfortable Prophylaxis: Heparin Time Spent (Minutes): 40 Notes Reviewed: contact lens technician, cardio, renal 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, consultants, catalytic case operator Subjective ROS Limited/Unobtainable: No Constitutional: Reports: no symptoms HEENT: Repors: no symptoms Respiratory: Reports: no symptoms Allergies: Coded Allergies: No Known Allergies (Unverified , 06/17/16) Objective Last 24 Hour Vital Signs Date Time Temp Pulse Resp B/P Pulse Ox O2 Delivery O2 Flow Rate FiO2 12/17/16 08:46 75 16 40 12/17/16 08:00 98.2 87 18 101/71 100 Mechanical Ventilator 40 12/17/16 06:57 89 19 40 12/17/16 05:09 88 16 40 12/17/16 04:00 88 12/17/16 04:00 98.2 82 18 107/67 100 Mechanical Ventilator 40 12/17/16 04:00 40 12/17/16 03:30 90 17 40 12/17/16 01:02 84 17 40 12/17/16 00:00 97.9 101 21 120/85 100 Mechanical Ventilator 40 12/17/16 00:00 84 12/17/16 00:00 40 12/16/16 23:20 89 18 40 12/16/16 21:00 87 16 40 12/16/16 20:00 40 12/16/16 20:00 89 12/16/16 20:00 98.2 92 21 118/86 100 Mechanical Ventilator 40 12/16/16 19:30 93 18 40 12/16/16 17:30 89 18 40 12/16/16 16:00 98.2 92 20 109/84 100 Mechanical Ventilator 40 12/16/16 16:00 92 12/16/16 16:00 40 12/16/16 14:21 88 18 40 12/16/16 12:41 90 18 40 12/16/16 12:00 98.2 88 17 109/77 100 Mechanical Ventilator 40 12/16/16 12:00 40 12/16/16 12:00 98 Intake and Output 12/16/16 12/17/16 19:00 07:00 Intake Total 3470 ml 3805.58 ml Output Total 2450 ml 1000 ml Balance 1020 ml 2805.58 ml IV Total 970 ml 1005.58 ml Other 2500 ml 2800 ml Output Urine Total 2450 ml 1000 ml # Voids 2 # Bowel Movements 9 Objective General Appearance: cachetic Lines, tubes and drains: peripheral HEENT: normocephalic, atraumatic Neck: non-tender, normal alignment Respiratory/Chest: chest wall non-tender, lungs clear Breasts: no masses Cardiovascular/Chest: normal peripheral pulses Abdomen: normal bowel sounds, non tender Genitourinary/Rectal: normal genital exam Extremities: normal range of motion Laboratory Tests 12/16/16 12:13: Body Fluid Glucose [Pending], Body Fluid Total Protein [Pending], Body Fluid Albumin [Pending] 12/17/16 02:50: White Blood Count 10.0, Red Blood Count 3.32L, Hemoglobin 9.6L, Hematocrit 29.8L , Mean Corpuscular Volume 90, Mean Corpuscular Hemoglobin 28.8, Mean Corpuscular Hemoglobin Concent 32.2, Red Cell Distribution Width 16.4H, Platelet Count 431, Mean Platelet Volume 5.7L, Neutrophils (%) (Auto) 78.2H, Lymphocytes (%) (Auto) 10.8L, Monocytes (%) (Auto) 7.9, Eosinophils (%) (Auto) 2.3, Basophils (%) (Auto) 0.8, Prothrombin Time 15.0H, Prothromb Time International Ratio 1.4H, Activated Partial Thromboplast Time 40H, Sodium Level 137, Potassium Level 4.3, Chloride Level 99, Carbon Dioxide Level 28, Anion Gap 10, Blood Urea Nitrogen 14, Creatinine 0.4L, Estimat Glomerular Filtration Rate > 60, Glucose Level 70L, Calcium Level 8.4L, Total Bilirubin 0.3, Aspartate Amino Transf (AST/SGOT) 14, Alanine Aminotransferase (ALT/SGPT) 9, Alkaline Phosphatase 113, Total Protein 6.5L, Albumin 1.7L, Globulin 4.8, Albumin/ Globulin Ratio 0.3L Current Medications Medications (Trade) Dose Ordered Sig/Shraddha Route PRN Reason Start Time Stop Time Status Last Admin Dose Admin Acetaminophen (Tylenol) 650 mg Q4H PRN ORAL FEVER 12/12/16 19:30 01/11/17 19:29 12/13/16 21:52 Albuterol/ Ipratropium (DuoNeb 0.5-3(2.5)mg/3ml) 3 ml Q4H PRN HHN Shortness of Breath 12/12/16 19:30 12/17/16 19:29 12/16/16 07:01 Dextrose STAT PRN IV Hypoglycemia 12/12/16 19:30 01/11/17 19:29 Heparin Sodium (Porcine) (Heparin 5000 units/ml) 5,000 units EVERY 12 HOURS SUBQ 12/12/16 21:00 01/11/17 20:59 12/16/16 20:55 Insulin Aspart (NovoLOG) BEFORE MEALS AND HS SUBQ 12/12/16 21:00 01/11/17 20:59 12/15/16 06:35 Lorazepam (Ativan 2mg/ml 1ml) 2 mg Q2H PRN IV For Anxiety 12/12/16 19:30 12/19/16 19:29 Morphine Sulfate (Morphine Sulfate) 4 mg Q4H PRN IVP Severe Pain (Pain Scale 7-10) 12/12/16 19:30 12/19/16 19:29 Ondansetron HCl (Zofran) 4 mg Q6H PRN IVP Nausea & Vomiting 12/12/16 19:30 01/11/17 19:29 Pantoprazole (Protonix) 40 mg DAILY IV 12/13/16 09:00 01/12/17 08:59 12/17/16 10:17 Polyethylene Glycol (Miralax) 17 gm DAILYPRN PRN ORAL Constipation 12/12/16 19:30 01/11/17 19:29 Promethazine HCl/ Codeine 5 ml 5 ml Q4H PRN ORAL For Cough 12/13/16 10:30 01/12/17 10:29 12/15/16 04:29 Sodium Chloride (Sodium Chloride 1000ml bag) 1,000 ml @ 75 mls/hr [id number] IV 12/12/16 19:30 01/11/17 19:29 12/17/16 03:55 Tigecycline/ Dextrose (Tygacil/D5W) 110 ml @ 220 mls/hr EVERY 12 HOURS IVPB 12/15/16 09:00 12/22/16 08:59 12/17/16 10:17 REN WRIGHT Dec 17, 2016 11:24
[2016-12-17] MEDS: DuoNeb 0.5-3(2.5)mg/3ml neb HHN PRN ×2 (11:40→22:46)
--- NOTE | 2016-12-17 12:03 | Pre-Procedure Note/Attestation ---
Pre-Procedure Note/Attestation Complete Prior to Procedure Planned Procedure: not applicable Procedure Narrative: colonoscopy Indications for Procedure Pre-Operative Diagnosis: colon mass Attestation I attest that I discussed the nature of the procedure; its benefits; risks and complications; and alternatives (and the risks and benefits of such alternatives ), prior to the procedure, with the patient (or the patient's legal front office representative). I attest that, if there was a reasonable possibility of needing a blood transfusion, the patient (or the patient's legal front office representative) was given the [facility] standardized written summary, pursuant to the [place] Blood Safety Act ([place] Health and Safety Code # 1645, as amended). I attest that I re-evaluated the patient just prior to the surgery and that there has been no change in the patient's H&P, except as documented below: JULIANNE ESTEVEZ Dec 17, 2016 12:03
[2016-12-17] MEDS ORDERED: NS 550ML IV ONE (12:05)
--- NOTE | 2016-12-17 12:33 | Infectious Diseases Prog Note ---
Assessment/Plan Assessment/Plan ASSESSMENT: 66 y/o male with: // Probable recurrent HCAP / VAP r/o empyema - SCx : not sent - CXR 12/13: Fairly extensive infiltrate throughout the right lung persists, may be slightly worse. Left lung and pleural space remain clear - h/o MDR ACB, PSA - CT 11/14 :Extensive pneumonia involving both lungs as described above. 5-6 cm cavitary focus suspicious for lung abscess in the right upper lobe. // Recurrent pleural effusion r/o empyema, malignant - SP thoracentesis 12/13 - pleural fluid Cx pending - SP thoracentesis 11/21 neg empyema // Recurrent MDR-ACB UTI - h/o yeast, VRE // Leukocytosis - SP , afebrile ( DVT, probable CA contributing ) // HIV and Hep B/C : neg // Colon mass, elevated CEA ro cancer CT: Large cecal mass and other polypoid colonic masses, detailed previously , again demonstrated // Acute on chronic VDRF SP trach, PEG - h/o COPD // Severe pulmonary HTN / grade I diastolic dysfunction / mod TR // Pulmonary nodules // h/o chronic RLE DVT - repeat doppler neg // Thrombocytosis // [place] resident // MDRO colonized // NKDA // Full Code PLAN: - cont tygacil d# 3 / SP IV vancomycin, amikacin d# 2 - monitor CBC, temperatures - monitor BMP - monitor CXR - vent support, trach care, aspiration precautions Subjective Constitutional: Denies: anorexia, chills, drenching sweats, fatigue, fever, no symptoms, other Allergies: Coded Allergies: No Known Allergies (Unverified , 06/17/16) Objective Vital Signs Last 24 Hour Vital Signs Date Time Temp Pulse Resp B/P Pulse Ox O2 Delivery O2 Flow Rate FiO2 12/17/16 12:00 40 12/17/16 11:40 81 18 100 Mechanical Ventilator 40 12/17/16 10:31 94 21 40 12/17/16 08:46 75 16 40 12/17/16 08:00 87 12/17/16 08:00 40 12/17/16 08:00 98.2 87 18 101/71 100 Mechanical Ventilator 40 12/17/16 06:57 89 19 40 12/17/16 05:09 88 16 40 12/17/16 04:00 88 6/13/17 04:00 98.2 82 18 107/67 100 Mechanical Ventilator 40 12/17/16 04:00 40 12/17/16 03:30 90 17 40 12/17/16 01:02 84 17 40 12/17/16 00:00 97.9 101 21 120/85 100 Mechanical Ventilator 40 12/17/16 00:00 84 12/17/16 00:00 40 12/16/16 23:20 89 18 40 12/16/16 21:00 87 16 40 12/16/16 20:00 40 12/16/16 20:00 89 12/16/16 20:00 98.2 92 21 118/86 100 Mechanical Ventilator 40 12/16/16 19:30 93 18 40 12/16/16 17:30 89 18 40 12/16/16 16:00 98.2 92 20 109/84 100 Mechanical Ventilator 40 12/16/16 16:00 92 12/16/16 16:00 40 12/16/16 14:21 88 18 40 12/16/16 12:41 90 18 40 Height (Feet): 5 Height (Inches): 9.00 Weight (Pounds): 130 HEENT: anicteric Respiratory/Chest: no respiratory distress Cardiovascular: regularly irregular Abdomen: no organomegaly Laboratory Tests Test 12/17/16 02:50 White Blood Count 10.0 K/UL (4.8-10.8) Red Blood Count 3.32 M/UL (4.70-6.10) L Hemoglobin 9.6 G/DL (14.2-18.0) L Hematocrit 29.8 % (42.0-52.0) L Mean Corpuscular Volume 90 FL (80-99) Mean Corpuscular Hemoglobin 28.8 PG (27.0-31.0) Mean Corpuscular Hemoglobin Concent 32.2 G/DL (32.0-36.0) Red Cell Distribution Width 16.4 % (11.6-14.8) H Platelet Count 431 K/UL (150-450) Mean Platelet Volume 5.7 FL (6.5-10.1) L Neutrophils (%) (Auto) 78.2 % (45.0-75.0) H Lymphocytes (%) (Auto) 10.8 % (20.0-45.0) L Monocytes (%) (Auto) 7.9 % (1.0-10.0) Eosinophils (%) (Auto) 2.3 % (0.0-3.0) Basophils (%) (Auto) 0.8 % (0.0-2.0) Prothrombin Time 15.0 SEC (9.30-11.50) H Prothromb Time International Ratio 1.4 (0.9-1.1) H Activated Partial Thromboplast Time 40 SEC (23-33) H Sodium Level 137 mEQ/L (135-145) Potassium Level 4.3 mEQ/L (3.4-4.9) Chloride Level 99 mEQ/L (98-107) Carbon Dioxide Level 28 mEQ/L (20-30) Anion Gap 10 (5-15) Blood Urea Nitrogen 14 mg/dL (7-23) Creatinine 0.4 mg/dL (0.7-1.2) L Estimat Glomerular Filtration Rate > 60 mL/min (>60) Glucose Level 70 mg/dL (74-106) L Calcium Level 8.4 mg/dL (8.6-10.2) L Total Bilirubin 0.3 mg/dL (0.0-1.2) Aspartate Amino Transf (AST/SGOT) 14 U/L (5-40) Alanine Aminotransferase (ALT/SGPT) 9 U/L (3-41) Alkaline Phosphatase 113 U/L (40-129) Total Protein 6.5 g/dL (6.6-8.7) L Albumin 1.7 g/dL (3.5-5.2) L Globulin 4.8 g/dL Albumin/Globulin Ratio 0.3 (1.0-2.7) L Current Medications Medications (Trade) Dose Ordered Sig/Shraddha Route PRN Reason Start Time Stop Time Status Last Admin Dose Admin Acetaminophen (Tylenol) 650 mg Q4H PRN ORAL FEVER 12/12/16 19:30 01/11/17 19:29 12/13/16 21:52 Albuterol/ Ipratropium (DuoNeb 0.5-3(2.5)mg/3ml) 3 ml Q4H PRN HHN Shortness of Breath 12/12/16 19:30 12/17/16 19:29 12/17/16 11:40 Dextrose STAT PRN IV Hypoglycemia 12/12/16 19:30 01/11/17 19:29 Heparin Sodium (Porcine) (Heparin 5000 units/ml) 5,000 units EVERY 12 HOURS SUBQ 12/12/16 21:00 01/11/17 20:59 12/16/16 20:55 Insulin Aspart (NovoLOG) BEFORE MEALS AND HS SUBQ 12/12/16 21:00 01/11/17 20:59 12/15/16 06:35 Lorazepam (Ativan 2mg/ml 1ml) 2 mg Q2H PRN IV For Anxiety 12/12/16 19:30 12/19/16 19:29 Morphine Sulfate (Morphine Sulfate) 4 mg Q4H PRN IVP Severe Pain (Pain Scale 7-10) 12/12/16 19:30 12/19/16 19:29 Ondansetron HCl (Zofran) 4 mg Q6H PRN IVP Nausea & Vomiting 12/12/16 19:30 01/11/17 19:29 Pantoprazole (Protonix) 40 mg DAILY IV 12/13/16 09:00 01/12/17 08:59 12/17/16 10:17 Polyethylene Glycol (Miralax) 17 gm DAILYPRN PRN ORAL Constipation 12/12/16 19:30 01/11/17 19:29 Promethazine HCl/ Codeine 5 ml 5 ml Q4H PRN ORAL For Cough 12/13/16 10:30 01/12/17 10:29 12/15/16 04:29 Sodium Chloride (Sodium Chloride 1000ml bag) 1,000 ml @ 75 mls/hr [id number] IV 12/12/16 19:30 01/11/17 19:29 12/17/16 03:55 Tigecycline/ Dextrose (Tygacil/D5W) 110 ml @ 220 mls/hr EVERY 12 HOURS IVPB 12/15/16 09:00 12/22/16 08:59 12/17/16 10:17 KIMBERLEE HINKLE M.D. Dec 17, 2016 12:33
[2016-12-17 12:35] VITALS: BP 111/77
--- NOTE | 2016-12-17 12:58 | Diagnostic Imaging Report ---
APPROVED REPORT CPT Code: 33405 Present Symptoms Comments: R/O DVT BILATERAL: Imaging reveals a patent deep venous system bilaterally. There is no evidence of thrombus within the femoral, popliteal or tibial segments. The greater saphenous veins are also within normal limits. Doppler indicates normal spontaneous flow within these segments.
--- NOTE | 2016-12-17 13:32 | Anethesia Preoperative Eval ---
Anesthesia Pre-op PMH/ROS General Date of Evaluation: Dec 17, 2016 Time of Evaluation: 11:56 Anesthesiologist: Tom ASA Score: ASA 4 Mallampati Score Class I : Soft palate, uvula, fauces, pillars visible Class II: Soft palate, uvula, fauces visible Class III: Soft palate, base of uvula visible Class IV: Only hard plate visible Mallampati Classification: Class III Surgeon: Gabriella Diagnosis: Cecal mass Surgical Procedure: Colonoscopy Anesthesia History: none Family History: no anesthesia problems Allergies: Coded Allergies: No Known Allergies (Unverified , 06/17/16) Medications: see eMAR Past Medical History Cardiovascular: Reports: HTN, arrhythmia Pulmonary: Reports: COPD, other - Respiratory failure vent dependent, Denies: HARSH, asthma Gastrointestinal/Genitourinary: Reports: other - dyspagia PEG tube in place, Denies: CRI, ESRD, GERD Neurologic/Psychiatric: Reports: CVA, depression/anxiety, Denies: TIA, dementia, other Endocrine: Denies: DM, hypothyroidism, other, steroids HEENT: Denies: STEBBINS (L), STEBBINS (R), cataract (L), cataract (R), glaucoma, other Hematology/Immune: Reports: DVT - h/o, anemia, bleeding disorder - anticoagulated Musculoskeletal/Integumentary: Reports: DJD, Denies: DDD, OA, RA, edema, other Other: other - severly malnourished PMH Narrative: as above PSxH Narrative: Tracheostomy and PEG tube placement Anesthesia Pre-op Phys. Exam Physician Exam Last Vital Signs Date Time Temp Pulse Resp B/P Pulse Ox O2 Delivery O2 Flow Rate FiO2 12/17/16 12:57 78 16 40 12/17/16 12:35 97.0 111/77 100 Mechanical Ventilator Constitutional: NAD, other - nonverbal Neurologic: other - unable to obtaine Cardiovascular: other - IIR Respiratory: other - diffuse wheezing Gastrointestinal: S/NT/ND Airway Exam Mallampati Score: Class III - traceostmy in place MO: limited Neck: stiff Teeth: missing Dentures: no lower, no upper Anesthesia Pre-op A/P Labs Hematology Test 12/17/16 02:50 White Blood Count 10.0 K/UL (4.8-10.8) Red Blood Count 3.32 M/UL (4.70-6.10) L Hemoglobin 9.6 G/DL (14.2-18.0) L Hematocrit 29.8 % (42.0-52.0) L Mean Corpuscular Volume 90 FL (80-99) Mean Corpuscular Hemoglobin 28.8 PG (27.0-31.0) Mean Corpuscular Hemoglobin Concent 32.2 G/DL (32.0-36.0) Red Cell Distribution Width 16.4 % (11.6-14.8) H Platelet Count 431 K/UL (150-450) Mean Platelet Volume 5.7 FL (6.5-10.1) L Neutrophils (%) (Auto) 78.2 % (45.0-75.0) H Lymphocytes (%) (Auto) 10.8 % (20.0-45.0) L Monocytes (%) (Auto) 7.9 % (1.0-10.0) Eosinophils (%) (Auto) 2.3 % (0.0-3.0) Basophils (%) (Auto) 0.8 % (0.0-2.0) Coagulation Test 12/17/16 02:50 Prothrombin Time 15.0 SEC (9.30-11.50) H Prothromb Time International Ratio 1.4 (0.9-1.1) H Activated Partial Thromboplast Time 40 SEC (23-33) H Chemistry Test 12/17/16 02:50 Sodium Level 137 mEQ/L (135-145) Potassium Level 4.3 mEQ/L (3.4-4.9) Chloride Level 99 mEQ/L (98-107) Carbon Dioxide Level 28 mEQ/L (20-30) Anion Gap 10 (5-15) Blood Urea Nitrogen 14 mg/dL (7-23) Creatinine 0.4 mg/dL (0.7-1.2) L Estimat Glomerular Filtration Rate > 60 mL/min (>60) Glucose Level 70 mg/dL (74-106) L Calcium Level 8.4 mg/dL (8.6-10.2) L Total Bilirubin 0.3 mg/dL (0.0-1.2) Aspartate Amino Transf (AST/SGOT) 14 U/L (5-40) Alanine Aminotransferase (ALT/SGPT) 9 U/L (3-41) Alkaline Phosphatase 113 U/L (40-129) Total Protein 6.5 g/dL (6.6-8.7) L Albumin 1.7 g/dL (3.5-5.2) L Globulin 4.8 g/dL Albumin/Globulin Ratio 0.3 (1.0-2.7) L Risk Assessment & Plan Assessment: ASA 4 Plan: MAC Status Change Before Surgery: No Pre-Antibiotics Drug: none MARLINE ALFONSO M.D. Dec 17, 2016 13:32
--- NOTE | 2016-12-17 13:35 | Immediate Post-Op Evaluation ---
Immediate Post-Op Evalulation Immediate Post-Op Evalulation Procedure: Colonoscopy polypectomy Date of Evaluation: Dec 17, 2016 Time of Evaluation: 12:40 IV Fluids: 200 Blood Products: none Estimated Blood Loss: min Urinary Output: none Blood Pressure Systolic: 104 Blood Pressure Diastolic: 56 Pulse Rate: 78 Respiratory Rate: 10 O2 Sat by Pulse Oximetry: 98 Temperature (Fahrenheit): 97.6 Pain Score (1-10): 2 Nausea: No Vomiting: No Complications none Patient Status: reacts, ventilated, none Hydration Status: adequate MARLINE ALFONSO M.D. Dec 17, 2016 13:35
--- NOTE | 2016-12-17 13:37 | 48 Hour Post Anesthesia Eval ---
Post Anesthesia Evaluation Procedure: Colonoscopy polypectomy Date of Evaluation: Dec 17, 2016 Time of Evaluation: 13:36 Blood Pressure Systolic: 108 0: 52 Pulse Rate: 76 Respiratory Rate: 10 Temperature (Fahrenheit): 97.4 O2 Sat by Pulse Oximetry: 98 Airway: other - tracheotomy Nausea: No Vomiting: No Pain Intensity: 2 Hydration Status: adequate Cardiopulmonary Status: stable no changes Mental Status/LOC: patient returned to baseline Follow-up Care/Observations: n/a Post-Anesthesia Complications: none Follow-up care needed: N/A MARLINE ALFONSO M.D. Dec 17, 2016 13:37
--- NOTE | 2016-12-17 15:53 | Cardiac Electrophysiology PN ---
Assessment/Plan Assessment/Plan 1. Sinus tachycardia. due to underlying sepsis and respiratory failure. Better. No supraventricular tachycardia or atrial fibrillation. 2. Hypotension, likely due to sepsis, currently off pressors. 3. Severe chronic obstructive pulmonary disease and pulmonary hypertension. 4. Pneumonia, on broad-spectrum IV antibiotics. 5. Ventilator-dependent respiratory failure, status post tracheostomy. 6. Status post percutaneous endoscopic gastrostomy placement. 7. Colorectal mass, status post transfusion.S/P EGD and colonoscopy today and polyp removal. Going for another colonoscopy for more polyp removal tomorrow. 8. Pleural effusion, status post thoracentesis on 11/21/2016 and 12/14/16 DW RN Subjective Subjective Alert in JORDAN on vent via trach. RNs at bedside. Had colonoscopy today. Scheduled for another colonoscopy tomorrow in view of many polyps. Objective Last 24 Hour Vital Signs Date Time Temp Pulse Resp B/P Pulse Ox O2 Delivery O2 Flow Rate FiO2 12/17/16 14:41 66 16 40 12/17/16 13:37 76 10 98 12/17/16 13:35 78 10 98 12/17/16 12:57 78 16 40 12/17/16 12:35 97.0 87 16 111/77 100 Mechanical Ventilator 40 12/17/16 12:00 40 12/17/16 12:00 84 12/17/16 11:40 81 18 100 Mechanical Ventilator 40 12/17/16 10:31 94 21 40 12/17/16 08:46 75 16 40 12/17/16 08:00 87 12/17/16 08:00 40 12/17/16 08:00 98.2 87 18 101/71 100 Mechanical Ventilator 40 12/17/16 06:57 89 19 40 12/17/16 05:09 88 16 40 12/17/16 04:00 88 12/17/16 04:00 98.2 82 18 107/67 100 Mechanical Ventilator 40 12/17/16 04:00 40 12/17/16 03:30 90 17 40 12/17/16 01:02 84 17 40 12/17/16 00:00 97.9 101 21 120/85 100 Mechanical Ventilator 40 12/17/16 00:00 84 12/17/16 00:00 40 12/16/16 23:20 89 18 40 12/16/16 21:00 87 16 40 12/16/16 20:00 40 12/16/16 20:00 89 12/16/16 20:00 98.2 92 21 118/86 100 Mechanical Ventilator 40 12/16/16 19:30 93 18 40 12/16/16 17:30 89 18 40 12/16/16 16:00 98.2 92 20 109/84 100 Mechanical Ventilator 40 12/16/16 16:00 92 12/16/16 16:00 40 Intake and Output 12/16/16 12/17/16 19:00 07:00 Intake Total 3470 ml 3805.58 ml Output Total 2450 ml 1000 ml Balance 1020 ml 2805.58 ml IV Total 970 ml 1005.58 ml Other 2500 ml 2800 ml Output Urine Total 2450 ml 1000 ml # Voids 2 # Bowel Movements 9 Laboratory Tests Test 12/17/16 02:50 White Blood Count 10.0 K/UL (4.8-10.8) Red Blood Count 3.32 M/UL (4.70-6.10) L Hemoglobin 9.6 G/DL (14.2-18.0) L Hematocrit 29.8 % (42.0-52.0) L Mean Corpuscular Volume 90 FL (80-99) Mean Corpuscular Hemoglobin 28.8 PG (27.0-31.0) Mean Corpuscular Hemoglobin Concent 32.2 G/DL (32.0-36.0) Red Cell Distribution Width 16.4 % (11.6-14.8) H Platelet Count 431 K/UL (150-450) Mean Platelet Volume 5.7 FL (6.5-10.1) L Neutrophils (%) (Auto) 78.2 % (45.0-75.0) H Lymphocytes (%) (Auto) 10.8 % (20.0-45.0) L Monocytes (%) (Auto) 7.9 % (1.0-10.0) Eosinophils (%) (Auto) 2.3 % (0.0-3.0) Basophils (%) (Auto) 0.8 % (0.0-2.0) Prothrombin Time 15.0 SEC (9.30-11.50) H Prothromb Time International Ratio 1.4 (0.9-1.1) H Activated Partial Thromboplast Time 40 SEC (23-33) H Sodium Level 137 mEQ/L (135-145) Potassium Level 4.3 mEQ/L (3.4-4.9) Chloride Level 99 mEQ/L (98-107) Carbon Dioxide Level 28 mEQ/L (20-30) Anion Gap 10 (5-15) Blood Urea Nitrogen 14 mg/dL (7-23) Creatinine 0.4 mg/dL (0.7-1.2) L Estimat Glomerular Filtration Rate > 60 mL/min (>60) Glucose Level 70 mg/dL (74-106) L Calcium Level 8.4 mg/dL (8.6-10.2) L Total Bilirubin 0.3 mg/dL (0.0-1.2) Aspartate Amino Transf (AST/SGOT) 14 U/L (5-40) Alanine Aminotransferase (ALT/SGPT) 9 U/L (3-41) Alkaline Phosphatase 113 U/L (40-129) Total Protein 6.5 g/dL (6.6-8.7) L Albumin 1.7 g/dL (3.5-5.2) L Globulin 4.8 g/dL Albumin/Globulin Ratio 0.3 (1.0-2.7) L Objective HEAD AND NECK: Shows no JVD. Status post tracheostomy. LUNGS: Have coarse rhonchi. CARDIOVASCULAR: Tachycardic S1, S2 with no gallop or murmur. ABDOMEN: Soft. EXTREMITIES: One plus edema. OSWALD HILLS Dec 17, 2016 15:52
[2016-12-17 16:00] VITALS: BP 112/70
--- NOTE | 2016-12-17 17:26 | Consultation ---
History of Present Illness General Date patient seen: Dec 17, 2016 Chief Complaint: Dyspnea/Respdistress Referring physician: TAD BENDER Reason for Consultation: COLONIC MASS Present Illness HPI 66M with multiple medical problems as noted below currently admitted for SOB. Patient was recently discharged but upon return to care facility began to have SOB and was admitted to hospital. Pleural effusion s/p thoracentesis and currently being care for by medical team. Prior CT noted cecal mass and was noted to significant anemia therefore colonoscopy was performed today. Noted to have Multiple polyps and large cecal mass on colonoscopy. Some polyps removed and mass biopsied. Scheduled for repeat colonoscopy tomorrow to attempt removal of remaining polyps. Surgery called to evaluate for colonic mass. When talking with patient, he has trach but is responsive and comfortable. Denies abdominal pain, no n/v, no obstructive symptoms. States SOB improved since admission. Otherwise well. understandings findings of colonoscopy and awaits repeat scope tomorrow. Allergies: Coded Allergies: No Known Allergies (Unverified , 06/17/16) Medication History Scheduled Benzonatate* (Benzonatate*), 100 MG GT THREE TIMES A DAY, (Reported) Budesonide (Budesonide), 0.25 MG IH BID, (Reported) Cran/Vitc/Mannose/Inulin/Brom (Uti-Stat Liquid), 3,875 MG GT DAILY, (Reported) Folic Acid* (Folic Acid*), 1 MG GT DAILY, (Reported) Guaifenesin (Guaifenesin), 200 MG GT EVERY 12 HOURS, (Reported) Magnesium Hydroxide* (Milk Of Magnesia*), 30 ML GT BEDTIME, (Reported) Metoprolol Tartrate* (Metoprolol Tartrate*), 12.5 MG GT EVERY OTHER DAY, ( Reported) Multivits W-Min/Ferrous Gluc (Centrum Multivit-Mineral Liq), 9 MG GT DAILY, ( Reported) Omeprazole (Omeprazole), 20 MG GT DAILY, (Reported) Polyethylene Glycol 3350* (Miralax*), 17 GM GT BEDTIME, (Reported) Prednisone (Prednisone), 5 MG GT DAILY, (Reported) Vit C/Ascorbate Ca/Ascorb Sod (Vitamin C 500 Mg/15 Ml Liquid), 500 MG GT DAILY, (Reported) Scheduled PRN Acetaminophen (Acetaminophen), 650 MG GT Q4HR PRN for Fever/Headache/Mild Pain, (Reported) Bisacodyl (Dulcolax), 10 MG RC for Constipation, (Reported) Magnesium Hydroxide* (Milk Of Magnesia*), 30 ML GT for Constipation, (Reported) Na Phos,M-B/Na Phos,Di-Ba* (Fleet Enema*), 118 ML RECTAL for Constipation, ( Reported) Discontinued Medications Chlorhexidine Gluconate* (Hibiclens*), 1 APPLIC TOPIC DAILY Discontinued Reason: Pt stopped taking med Insulin Aspart (Novolog Flexpen), 0 UNITS SUBQ Q6HR Discontinued Reason: Pt stopped taking med Ipratropium [place] 0.5MG/2.5ML (Ipratropium [place] 0.5MG/2.5ML), 500 MCG HHN Q6HRT Discontinued Reason: Pt stopped taking med Levofloxacin* (Levaquin*), 500 MG ORAL DAILY Discontinued Reason: Therapy completed Polyethylene Glycol 3350* (Miralax*), 17 GM ORAL BEDTIME Discontinued Reason: Pt stopped taking med Patient History Limited by: medical condition History Provided By: Patient Healthcare decision maker Resuscitation status Full Code Advanced Directive on File Past Medical/Surgical History Past Medical/Surgical History: (1) Acute blood loss anemia (2) Emphysema of lung (3) Acute respiratory failure (4) ENMA (iron deficiency anemia) (5) Altered mental status (6) DVT (deep venous thrombosis) (7) Bronchitis (8) Encephalopathy acute (9) Lung nodule (10) Severe anemia (11) COPD exacerbation (12) Dysphagia (13) LFTs abnormal (14) Hypoglycemia (15) Dysuria (16) Severe sepsis (17) Hypotension (18) Abdominal distention (19) Colonic mass (20) Gastric mass (21) UTI (urinary tract infection) due to Enterococcus (22) Empyema (23) Hyperkalemia (24) Pleural effusion on right (25) Respiratory distress (26) Emphysema lung (27) Respiratory failure (28) Feeding by G-tube (29) Acute and chronic respiratory failure (30) SOB (shortness of breath) (31) Lung abscess (32) Tachycardia (33) UTI (urinary tract infection) (34) Hypertension (35) Pneumonia (36) Mass of colon (37) Anemia (38) Leukocytosis (39) Hypoalbuminemia (40) Positive occult stool blood test Review of Systems Constitutional: Denies: chills, fever, malaise, no symptoms, other, see HPI, sweats, weakness ENT: Denies: ear discharge, ear pain, hearing loss, mouth pain, nasal discharge , no symptoms, nose congestion, nose pain, other, see HPI, throat pain, throat swelling Respiratory: Denies: ROBERTS, cough, no symptoms, orthopnea, other, see HPI, shortness of breath, sputum, stridor, wheezing Cardiovascular: Denies: PND, chest pain, edema, no symptoms, other, palpitations, see HPI, syncope Gastrointestinal: Denies: abdominal pain, constipation, diarrhea, hematemesis, melena, nausea, no symptoms, other, see HPI, vomiting Genitourinary: Denies: discharge, dysuria, frequency, hematuria, incontinence, no symptoms, other, pain, retention, see HPI, urgency, vag bleed/dc Musculoskeletal: Denies: back pain, gout, joint pain, joint swelling, muscle pain, muscle stiffness, no symptoms, other, see HPI Skin: Denies: change in color, change in hair/nails, dryness, lesions, no symptoms, other, rash, see HPI Psychiatric: Denies: HI, SI, anxiety, depressed feelings, emotional problems, hallucinations, no symptoms, other, prior hx, see HPI Neurological: Denies: dizziness, focal weakness, headache, no symptoms, numbness, other, paresthesia, see HPI, seizure, syncope, tingling, tremors Endocrine: Denies: excessive sweating, flushing, increased thirst, increased urine, intolerance to temperature, no symptoms, other, see HPI, unexplained weight loss Hematologic/Lymphatic: Denies: anemia, blood clots, diathesis, easy bleeding, easy bruising, no symptoms, other, see HPI, swollen glands All Other Systems: negative except mentioned in HPI Physical Exam General Appearance: no apparent distress, alert HEENT: PERRL Neck: trach Respiratory/Chest: on vent Cardiovascular/Chest: normal rate Abdomen: normal bowel sounds, non tender, soft, no organomegaly, no mass Extremities: no edema, no cyanosis Skin Exam: normal pigmentation Neurologic: alert, oriented x 3, responsive - responsive as possible with trach in place on vent Last 24 Hour Vital Signs Date Time Temp Pulse Resp B/P Pulse Ox O2 Delivery O2 Flow Rate FiO2 12/17/16 16:34 71 16 40 12/17/16 16:00 40 12/17/16 16:00 84 12/17/16 14:41 66 16 40 12/17/16 13:37 76 10 98 12/17/16 13:35 78 10 98 12/17/16 12:57 78 16 40 12/17/16 12:35 97.0 87 16 111/77 100 Mechanical Ventilator 40 12/17/16 12:00 40 12/17/16 12:00 84 12/17/16 11:40 81 18 100 Mechanical Ventilator 40 12/17/16 10:31 94 21 40 12/17/16 08:46 75 16 40 12/17/16 08:00 87 12/17/16 08:00 40 12/17/16 08:00 98.2 87 18 101/71 100 Mechanical Ventilator 40 12/17/16 06:57 89 19 40 12/17/16 05:09 88 16 40 12/17/16 04:00 88 12/17/16 04:00 98.2 82 18 107/67 100 Mechanical Ventilator 40 12/17/16 04:00 40 12/17/16 03:30 90 17 40 12/17/16 01:02 84 17 40 12/17/16 00:00 97.9 101 21 120/85 100 Mechanical Ventilator 40 12/17/16 00:00 84 12/17/16 00:00 40 12/16/16 23:20 89 18 40 12/16/16 21:00 87 16 40 12/16/16 20:00 40 12/16/16 20:00 89 12/16/16 20:00 98.2 92 21 118/86 100 Mechanical Ventilator 40 12/16/16 19:30 93 18 40 12/16/16 17:30 89 18 40 Intake and Output 12/16/16 12/17/16 19:00 07:00 Intake Total 3470 ml 3805.58 ml Output Total 2450 ml 1000 ml Balance 1020 ml 2805.58 ml IV Total 970 ml 1005.58 ml Other 2500 ml 2800 ml Output Urine Total 2450 ml 1000 ml # Voids 2 # Bowel Movements 9 Laboratory Tests Test 12/17/16 02:50 White Blood Count 10.0 K/UL (4.8-10.8) Red Blood Count 3.32 M/UL (4.70-6.10) L Hemoglobin 9.6 G/DL (14.2-18.0) L Hematocrit 29.8 % (42.0-52.0) L Mean Corpuscular Volume 90 FL (80-99) Mean Corpuscular Hemoglobin 28.8 PG (27.0-31.0) Mean Corpuscular Hemoglobin Concent 32.2 G/DL (32.0-36.0) Red Cell Distribution Width 16.4 % (11.6-14.8) H Platelet Count 431 K/UL (150-450) Mean Platelet Volume 5.7 FL (6.5-10.1) L Neutrophils (%) (Auto) 78.2 % (45.0-75.0) H Lymphocytes (%) (Auto) 10.8 % (20.0-45.0) L Monocytes (%) (Auto) 7.9 % (1.0-10.0) Eosinophils (%) (Auto) 2.3 % (0.0-3.0) Basophils (%) (Auto) 0.8 % (0.0-2.0) Prothrombin Time 15.0 SEC (9.30-11.50) H Prothromb Time International Ratio 1.4 (0.9-1.1) H Activated Partial Thromboplast Time 40 SEC (23-33) H Sodium Level 137 mEQ/L (135-145) Potassium Level 4.3 mEQ/L (3.4-4.9) Chloride Level 99 mEQ/L (98-107) Carbon Dioxide Level 28 mEQ/L (20-30) Anion Gap 10 (5-15) Blood Urea Nitrogen 14 mg/dL (7-23) Creatinine 0.4 mg/dL (0.7-1.2) L Estimat Glomerular Filtration Rate > 60 mL/min (>60) Glucose Level 70 mg/dL (74-106) L Calcium Level 8.4 mg/dL (8.6-10.2) L Total Bilirubin 0.3 mg/dL (0.0-1.2) Aspartate Amino Transf (AST/SGOT) 14 U/L (5-40) Alanine Aminotransferase (ALT/SGPT) 9 U/L (3-41) Alkaline Phosphatase 113 U/L (40-129) Total Protein 6.5 g/dL (6.6-8.7) L Albumin 1.7 g/dL (3.5-5.2) L Globulin 4.8 g/dL Albumin/Globulin Ratio 0.3 (1.0-2.7) L Height (Feet): 5 Height (Inches): 9.00 Weight (Pounds): 130 Medications Current Medications Medications (Trade) Dose Ordered Sig/Shraddha Route PRN Reason Start Time Stop Time Status Last Admin Dose Admin Acetaminophen (Tylenol) 650 mg Q4H PRN ORAL FEVER 12/12/16 19:30 01/11/17 19:29 12/13/16 21:52 Albuterol/ Ipratropium (DuoNeb 0.5-3(2.5)mg/3ml) 3 ml Q4H PRN HHN Shortness of Breath 12/12/16 19:30 12/17/16 19:29 12/17/16 11:40 Dextrose STAT PRN IV Hypoglycemia 12/12/16 19:30 01/11/17 19:29 Heparin Sodium (Porcine) (Heparin 5000 units/ml) 5,000 units EVERY 12 HOURS SUBQ 12/12/16 21:00 01/11/17 20:59 12/16/16 20:55 Insulin Aspart (NovoLOG) BEFORE MEALS AND HS SUBQ 12/12/16 21:00 01/11/17 20:59 12/15/16 06:35 Lorazepam (Ativan 2mg/ml 1ml) 2 mg Q2H PRN IV For Anxiety 12/12/16 19:30 12/19/16 19:29 Morphine Sulfate (Morphine Sulfate) 4 mg Q4H PRN IVP Severe Pain (Pain Scale 7-10) 12/12/16 19:30 12/19/16 19:29 Ondansetron HCl (Zofran) 4 mg Q6H PRN IVP Nausea & Vomiting 12/12/16 19:30 01/11/17 19:29 Pantoprazole (Protonix) 40 mg DAILY IV 12/13/16 09:00 01/12/17 08:59 12/17/16 10:17 Phytonadione/ Dextrose (Vitamin K/D5W) 55.5 ml @ 222 mls/hr ONCE ONCE IVPB 12/17/16 18:00 12/17/16 18:14 Polyethylene Glycol (Miralax) 17 gm DAILYPRN PRN ORAL Constipation 12/12/16 19:30 01/11/17 19:29 Promethazine HCl/ Codeine 5 ml 5 ml Q4H PRN ORAL For Cough 12/13/16 10:30 01/12/17 10:29 12/15/16 04:29 Sodium Chloride (Sodium Chloride 1000ml bag) 1,000 ml @ 75 mls/hr [id number] IV 12/12/16 19:30 01/11/17 19:29 12/17/16 03:55 Tigecycline 50 mg/ Dextrose 110 ml @ 220 mls/hr EVERY 12 HOURS IVPB 12/15/16 09:00 12/22/16 08:59 12/17/16 10:17 Assessment/Plan Problem List: (1) Mass of colon Assessment & Plan: 66M large colonic mass and multiple colonic polyps. Recent colonoscopy performed and biopsy of mass taken as well as some of the polyps. repeat colonoscopy tomorrow for remaining polyps. Will await biopsy results for pathology Given size and appearance of mass will likely need excision as it will soon cause obstruction if it continues to grow. Mass seen on two prior abdominal CT scans (06/2016 and 11/2016); large and growing. Will need to see what pathology from other polyps are before planning surgical intervention (partial colectomy vs subtotal) Thank you for this consultation. will follow with you. ICD Codes: K63.9 - Disease of intestine, unspecified SNOMED: [id number] Status: stable Landon Farfan Dec 17, 2016 17:26
[2016-12-17] MEDS: D5 1/2NS 1,000 ML IV SCH (17:42)
[2016-12-17] MEDS ORDERED: Phytonadione 1 MG in D5W 55 ML IVPB ONE (18:00)
[2016-12-17 18:13] LABS: PROTEIN, BODY FLUID 4.2 g/dL (.)
--- NOTE | 2016-12-17 19:07 | Internal Med Progress Note ---
Subjective Date of Service: Dec 17, 2016 Physician Name VerdinTadeo Attending Physician Steve Rader MD Current Medications Medications (Trade) Dose Ordered Sig/Shraddha Route PRN Reason Start Time Stop Time Status Last Admin Dose Admin Acetaminophen (Tylenol) 650 mg Q4H PRN ORAL FEVER 12/12/16 19:30 01/11/17 19:29 12/13/16 21:52 Albuterol/ Ipratropium (DuoNeb 0.5-3(2.5)mg/3ml) 3 ml Q4H PRN HHN Shortness of Breath 12/12/16 19:30 12/17/16 19:29 12/17/16 11:40 Dextrose (Dextrose 50%) STAT PRN IV Hypoglycemia 12/12/16 19:30 01/11/17 19:29 Dextrose/Sodium Chloride (D5 0.45% NS) 1,000 ml @ 75 mls/hr [id number] IV 12/17/16 18:00 01/16/17 17:59 12/17/16 17:42 Heparin Sodium (Porcine) (Heparin 5000 units/ml) 5,000 units EVERY 12 HOURS SUBQ 12/12/16 21:00 01/11/17 20:59 12/16/16 20:55 Insulin Aspart (NovoLOG) BEFORE MEALS AND HS SUBQ 12/12/16 21:00 01/11/17 20:59 12/15/16 06:35 Lorazepam (Ativan 2mg/ml 1ml) 2 mg Q2H PRN IV For Anxiety 12/12/16 19:30 12/19/16 19:29 Morphine Sulfate (Morphine Sulfate) 4 mg Q4H PRN IVP Severe Pain (Pain Scale 7-10) 12/12/16 19:30 12/19/16 19:29 Ondansetron HCl (Zofran) 4 mg Q6H PRN IVP Nausea & Vomiting 12/12/16 19:30 01/11/17 19:29 Pantoprazole (Protonix) 40 mg DAILY IV 12/13/16 09:00 01/12/17 08:59 12/17/16 10:17 Polyethylene Glycol (Miralax) 17 gm DAILYPRN PRN ORAL Constipation 12/12/16 19:30 01/11/17 19:29 Promethazine HCl/ Codeine 5 ml 5 ml Q4H PRN ORAL For Cough 12/13/16 10:30 01/12/17 10:29 12/15/16 04:29 Tigecycline 50 mg/ Dextrose 110 ml @ 220 mls/hr EVERY 12 HOURS IVPB 12/15/16 09:00 12/22/16 08:59 12/17/16 10:17 Allergies: Coded Allergies: No Known Allergies (Unverified , 06/17/16) ROS Limited/Unobtainable: Yes Subjective 66 YO M admitted for shortness of breath and tachycardia. Intubated and sedated. JORDAN. Cover for Int Med-Dr Rader. S/P colonoscopy 12/17/16 Objective Last Vital Signs Date Time Temp Pulse Resp B/P Pulse Ox O2 Delivery O2 Flow Rate FiO2 12/17/16 16:34 71 16 40 12/17/16 16:00 98.4 112/70 100 Mechanical Ventilator Laboratory Tests Test 12/17/16 02:50 White Blood Count 10.0 K/UL (4.8-10.8) Red Blood Count 3.32 M/UL (4.70-6.10) L Hemoglobin 9.6 G/DL (14.2-18.0) L Hematocrit 29.8 % (42.0-52.0) L Mean Corpuscular Volume 90 FL (80-99) Mean Corpuscular Hemoglobin 28.8 PG (27.0-31.0) Mean Corpuscular Hemoglobin Concent 32.2 G/DL (32.0-36.0) Red Cell Distribution Width 16.4 % (11.6-14.8) H Platelet Count 431 K/UL (150-450) Mean Platelet Volume 5.7 FL (6.5-10.1) L Neutrophils (%) (Auto) 78.2 % (45.0-75.0) H Lymphocytes (%) (Auto) 10.8 % (20.0-45.0) L Monocytes (%) (Auto) 7.9 % (1.0-10.0) Eosinophils (%) (Auto) 2.3 % (0.0-3.0) Basophils (%) (Auto) 0.8 % (0.0-2.0) Prothrombin Time 15.0 SEC (9.30-11.50) H Prothromb Time International Ratio 1.4 (0.9-1.1) H Activated Partial Thromboplast Time 40 SEC (23-33) H Sodium Level 137 mEQ/L (135-145) Potassium Level 4.3 mEQ/L (3.4-4.9) Chloride Level 99 mEQ/L (98-107) Carbon Dioxide Level 28 mEQ/L (20-30) Anion Gap 10 (5-15) Blood Urea Nitrogen 14 mg/dL (7-23) Creatinine 0.4 mg/dL (0.7-1.2) L Estimat Glomerular Filtration Rate > 60 mL/min (>60) Glucose Level 70 mg/dL (74-106) L Calcium Level 8.4 mg/dL (8.6-10.2) L Total Bilirubin 0.3 mg/dL (0.0-1.2) Aspartate Amino Transf (AST/SGOT) 14 U/L (5-40) Alanine Aminotransferase (ALT/SGPT) 9 U/L (3-41) Alkaline Phosphatase 113 U/L (40-129) Total Protein 6.5 g/dL (6.6-8.7) L Albumin 1.7 g/dL (3.5-5.2) L Globulin 4.8 g/dL Albumin/Globulin Ratio 0.3 (1.0-2.7) L Intake and Output 12/16/16 12/17/16 19:00 07:00 Intake Total 3470 ml 3805.58 ml Output Total 2450 ml 1000 ml Balance 1020 ml 2805.58 ml IV Total 970 ml 1005.58 ml Other 2500 ml 2800 ml Output Urine Total 2450 ml 1000 ml # Voids 2 # Bowel Movements 9 Objective General Appearance: lethargic, thin EENT: PERRL/EOMI, normal ENT inspection Neck: Trach; non-tender, normal alignment, supple Cardiovascular: normal peripheral pulses, regular rhythm, no gallop/murmur, no JVD, tachycardia Respiratory/Chest: chest wall non-tender, crackles/rales, rhonchi - bilaterally , expiratory wheezing Abdomen: normal bowel sounds, non tender, soft, no organomegaly, no mass 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 See ID note. D/C vanco and amikacin. Start tygacil. (2) Tachycardia (3) SOB (shortness of breath) Assessment & Plan: Due to pneurmonia. (4) Hypertension (5) Acute and chronic respiratory failure Assessment & Plan: Currently on Mech vent. See pulmonary note. (6) Emphysema lung (7) Lung abscess (8) Mass of colon (9) Pneumonia Assessment & Plan: see pulmonary and ID note. (10) Mass of cecum Assessment & Plan: See surgery note. Will require resection when stable. Status: not improved TADEO VERDIN Dec 17, 2016 19:07
[2016-12-17 20:40] VITALS: BP 110/70
[2016-12-18] VITALS: BP 106/86
[2016-12-18 04:00] VITALS: BP 114/71
[2016-12-18 05:40] LABS: INR 1.4 (0.9-1.1); PROTHROMBIN TIME 14.6 SEC (9.30-11.50)
[2016-12-18 05:48] LABS: EOSINOPHILS % (AUTO) 1.7 % (0.0-3.0); LYMPHOCYTES % (AUTO) 15.4 % (20.0-45.0); MEAN CORPUSCULAR HEMOGLOBIN 28.4 PG (27.0-31.0); MEAN CORPUSCULAR HGB CONC 31.9 G/DL (32.0-36.0); MEAN CORPUSCULAR VOLUME 89 FL (80-99); MEAN PLATELET VOLUME 5.9 FL (6.5-10.1); NEUTROPHILS % (AUTO) 74.8 % (45.0-75.0); PLATELET COUNT 425 K/UL (150-450); RED CELL DISTRIBUTION WIDTH 15.9 % (11.6-14.8); WHITE BLOOD COUNT 9.8 K/UL (4.8-10.8)
[2016-12-18 06:13] LABS: ANION GAP 12 (5-15); CALCIUM 8.4 mg/dL (8.6-10.2); CARBON DIOXIDE 25 mEQ/L (20-30); CHLORIDE 97 mEQ/L (98-107); CREATININE 0.4 mg/dL (0.7-1.2); GLOMERULAR FILTRATION RATE > 60 mL/min (>60); HEMOLYSIS 3; POTASSIUM 3.9 mEQ/L (3.4-4.9); SODIUM 134 mEQ/L (135-145)
[2016-12-18] MEDS: NovoLOG Insulin Flexpen SUBQ SCH ×4 (06:24→20:53)
[2016-12-18] MEDS: D5 1/2NS 1,000 ML IV SCH ×2 (06:28→20:49)
[2016-12-18 08:00] VITALS: BP 124/97
[2016-12-18] MEDS: Tigecycline 50 MG in D5W 110 ML IVPB SCH ×2 (09:23→20:49)
[2016-12-18] MEDS: Pantoprazole Inj IV SCH (09:23)
[2016-12-18] MEDS: DuoNeb 0.5-3(2.5)mg/3ml neb HHN PRN ×3 (09:29→21:05)
--- NOTE | 2016-12-18 09:58 | Pre-Procedure Note/Attestation ---
Pre-Procedure Note/Attestation Complete Prior to Procedure Planned Procedure: not applicable Procedure Narrative: colonoscopy Indications for Procedure Pre-Operative Diagnosis: colon mass Attestation I attest that I discussed the nature of the procedure; its benefits; risks and complications; and alternatives (and the risks and benefits of such alternatives ), prior to the procedure, with the patient (or the patient's legal medical customer service representative). I attest that, if there was a reasonable possibility of needing a blood transfusion, the patient (or the patient's legal medical customer service representative) was given the [facility] standardized written summary, pursuant to the [place] Blood Safety Act ([place] Health and Safety Code # 1645, as amended). I attest that I re-evaluated the patient just prior to the surgery and that there has been no change in the patient's H&P, except as documented below: JULIANNE ESTEVEZ Dec 18, 2016 09:58
[2016-12-18] MEDS ORDERED: Propofol 10mg/ml 20ml IV ONE (10:00)
[2016-12-18] MEDS ORDERED: KCL IV ONE (10:00)
[2016-12-18] MEDS ORDERED: Lidocaine 1% MPF 10mg/ml 5ml ONE (10:00)
[2016-12-18] MEDS ORDERED: D5NS IV ONE (10:00)
[2016-12-18] MEDS ORDERED: NS 550ML IV ONE (10:10)
--- NOTE | 2016-12-18 10:39 | General Progress Note ---
Progress Note Progress Note Preceeding all noted: large cecal tumor, multiple right and left sided colonic smaller smooth polyps being resected at this time bedside JORDAN by Dr. Quiroz. Will await final path and then proceed with right colectomy vs. subtotal colectomy depending on path findings. discussed with CARLO Jeronimo Dec 18, 2016 10:39
--- NOTE | 2016-12-18 11:03 | Anethesia Preoperative Eval ---
Anesthesia Pre-op PMH/ROS General Date of Evaluation: Dec 18, 2016 Time of Evaluation: 10:06 Anesthesiologist: xuan ASA Score: ASA 3 Mallampati Score Class I : Soft palate, uvula, fauces, pillars visible Class II: Soft palate, uvula, fauces visible Class III: Soft palate, base of uvula visible Class IV: Only hard plate visible Mallampati Classification: Class II Surgeon: mily Diagnosis: colon mass Surgical Procedure: colonscopy with biopsy Family History: no anesthesia problems Allergies: Coded Allergies: No Known Allergies (Unverified , 06/17/16) Medications: see eMAR Past Medical History Cardiovascular: Reports: HTN, other - chf, Pulmonary: Reports: COPD, other - airway support on ventilator with tracheostomy Gastrointestinal/Genitourinary: Reports: GERD, other - colon mass, gastritis Neurologic/Psychiatric: Reports: CVA, other - encephelopathy Musculoskeletal/Integumentary: Reports: other - back pain PSxH Narrative: colonoscopy with biopsy Anesthesia Pre-op Phys. Exam Physician Exam Last Vital Signs Date Time Temp Pulse Resp B/P Pulse Ox O2 Delivery O2 Flow Rate FiO2 12/18/16 09:20 76 16 100 Mechanical Ventilator 12/18/16 09:15 40 12/18/16 08:00 97.7 124/97 Constitutional: NAD Neurologic: CN 2-12 intact Cardiovascular: RRR Respiratory: other - on vent Airway Exam Mallampati Score: Class III - traceostmy in place Neck: tracheostomy ROM: limited Teeth: missing, broken Anesthesia Pre-op A/P Labs Hematology Test 12/18/16 03:10 White Blood Count 9.8 K/UL (4.8-10.8) Red Blood Count 3.50 M/UL (4.70-6.10) L Hemoglobin 9.9 G/DL (14.2-18.0) L Hematocrit 31.2 % (42.0-52.0) L Mean Corpuscular Volume 89 FL (80-99) Mean Corpuscular Hemoglobin 28.4 PG (27.0-31.0) Mean Corpuscular Hemoglobin Concent 31.9 G/DL (32.0-36.0) L Red Cell Distribution Width 15.9 % (11.6-14.8) H Platelet Count 425 K/UL (150-450) Mean Platelet Volume 5.9 FL (6.5-10.1) L Neutrophils (%) (Auto) 74.8 % (45.0-75.0) Lymphocytes (%) (Auto) 15.4 % (20.0-45.0) L Monocytes (%) (Auto) 7.0 % (1.0-10.0) Eosinophils (%) (Auto) 1.7 % (0.0-3.0) Basophils (%) (Auto) 1.0 % (0.0-2.0) Coagulation Test 12/18/16 03:10 Prothrombin Time 14.6 SEC (9.30-11.50) H Prothromb Time International Ratio 1.4 (0.9-1.1) H Activated Partial Thromboplast Time 42 SEC (23-33) H Chemistry Test 12/18/16 03:10 Sodium Level 134 mEQ/L (135-145) L Potassium Level 3.9 mEQ/L (3.4-4.9) Chloride Level 97 mEQ/L (98-107) L Carbon Dioxide Level 25 mEQ/L (20-30) Anion Gap 12 (5-15) Blood Urea Nitrogen 15 mg/dL (7-23) Creatinine 0.4 mg/dL (0.7-1.2) L Estimat Glomerular Filtration Rate > 60 mL/min (>60) Glucose Level 78 mg/dL (74-106) Calcium Level 8.4 mg/dL (8.6-10.2) L Risk Assessment & Plan Assessment: colon mass Plan: colonoscopy Status Change Before Surgery: No Pre-Antibiotics Drug: JOI Smith Dec 18, 2016 11:03
--- NOTE | 2016-12-18 11:04 | Immediate Post-Op Evaluation ---
Immediate Post-Op Evalulation Immediate Post-Op Evalulation Procedure: Colonoscopy polypectomy Date of Evaluation: Dec 18, 2016 Time of Evaluation: 11:18 IV Fluids: [id number] Blood Products: none Estimated Blood Loss: negligible Blood Pressure Systolic: 116 Blood Pressure Diastolic: 72 Pulse Rate: 71 Respiratory Rate: 16 O2 Sat by Pulse Oximetry: 100 Pain Score (1-10): 0 Nausea: No Vomiting: No Complications none Patient Status: awake, reacts, ventilated Hydration Status: adequate Drug: JOI Smith Dec 18, 2016 11:04
[2016-12-18] MEDS ORDERED: Atropine Inj 1mg/10ml Syr IV PRN (11:15)
[2016-12-18] MEDS ORDERED: DiphenhydrAMINE 50mg/ml Inj IVP PRN (11:15)
[2016-12-18] MEDS ORDERED: Hydromorphone 0.5mg/0.5ml inj IVP PRN (11:15)
[2016-12-18] MEDS ORDERED: Midazolam 2mg/2ml Inj IVP PRN (11:15)
--- NOTE | 2016-12-18 11:20 | Internal Med Progress Note ---
Subjective Date of Service: Dec 18, 2016 Physician Name Tadeo Verdin Attending Physician Steve Rader MD Current Medications Medications (Trade) Dose Ordered Sig/Shraddha Route PRN Reason Start Time Stop Time Status Last Admin Dose Admin Acetaminophen (Tylenol) 650 mg Q4H PRN ORAL FEVER 12/12/16 19:30 01/11/17 19:29 12/13/16 21:52 Albuterol/ Ipratropium (DuoNeb 0.5-3(2.5)mg/3ml) 3 ml Q4H PRN HHN Shortness of Breath 12/17/16 22:30 12/22/16 22:29 12/18/16 09:29 Atropine Sulfate (Atropine) 0.5 mg Q5M PRN IV BRADYCARDIA 12/18/16 11:15 12/18/16 16:00 Dextrose (Dextrose 50%) STAT PRN IV Hypoglycemia 12/12/16 19:30 01/11/17 19:29 Dextrose/Sodium Chloride (D5 0.45% NS) 1,000 ml @ 75 mls/hr [id number] IV 12/17/16 18:00 01/16/17 17:59 12/18/16 06:28 Diphenhydramine HCl (Benadryl) 25 mg Q15M PRN IVP Itching 12/18/16 11:15 12/18/16 16:00 Heparin Sodium (Porcine) (Heparin 5000 units/ml) 5,000 units EVERY 12 HOURS SUBQ 12/12/16 21:00 01/11/17 20:59 12/16/16 20:55 Hydralazine HCl (Apresoline) 5 mg Q30M PRN IV SBP>160/DBP>90 12/18/16 11:15 12/18/16 16:00 Hydromorphone HCl (Dilaudid) 0.5 mg Q15M PRN IVP Severe Pain (Pain Scale 7-10) 12/18/16 11:15 12/18/16 16:00 Insulin Aspart (NovoLOG) BEFORE MEALS AND HS SUBQ 12/12/16 21:00 01/11/17 20:59 12/15/16 06:35 Lorazepam (Ativan 2mg/ml 1ml) 2 mg Q2H PRN IV For Anxiety 12/12/16 19:30 12/19/16 19:29 Midazolam HCl (Versed 2mg/2ml vial) 1 mg Q15M PRN IVP For Anxiety 12/18/16 11:15 12/18/16 16:00 Morphine Sulfate (Morphine Sulfate) 4 mg Q4H PRN IVP Severe Pain (Pain Scale 7-10) 12/12/16 19:30 12/19/16 19:29 Ondansetron HCl (Zofran) 4 mg Q1H PRN IVP Nausea & Vomiting 12/18/16 11:15 12/18/16 16:00 Ondansetron HCl (Zofran) 4 mg Q6H PRN IVP Nausea & Vomiting 12/12/16 19:30 01/11/17 19:29 Pantoprazole (Protonix) 40 mg DAILY IV 12/13/16 09:00 01/12/17 08:59 12/18/16 09:23 Polyethylene Glycol (Miralax) 17 gm DAILYPRN PRN ORAL Constipation 12/12/16 19:30 01/11/17 19:29 Promethazine HCl/ Codeine 5 ml 5 ml Q4H PRN ORAL For Cough 12/13/16 10:30 01/12/17 10:29 12/15/16 04:29 Tigecycline 50 mg/ Dextrose 110 ml @ 220 mls/hr EVERY 12 HOURS IVPB 12/15/16 09:00 12/22/16 08:59 12/18/16 09:23 Allergies: Coded Allergies: No Known Allergies (Unverified , 06/17/16) ROS Limited/Unobtainable: Yes Subjective 66 YO M admitted for shortness of breath and tachycardia. Intubated and sedated. JORDAN. Cover for Int Med-Dr Rader. S/P colonoscopy 12/17/16; repeat colonoscopy on 12/18/16. Objective Last Vital Signs Date Time Temp Pulse Resp B/P Pulse Ox O2 Delivery O2 Flow Rate FiO2 12/18/16 09:20 76 16 100 Mechanical Ventilator 12/18/16 09:15 40 12/18/16 08:00 97.7 124/97 Laboratory Tests Test 12/18/16 03:10 White Blood Count 9.8 K/UL (4.8-10.8) Red Blood Count 3.50 M/UL (4.70-6.10) L Hemoglobin 9.9 G/DL (14.2-18.0) L Hematocrit 31.2 % (42.0-52.0) L Mean Corpuscular Volume 89 FL (80-99) Mean Corpuscular Hemoglobin 28.4 PG (27.0-31.0) Mean Corpuscular Hemoglobin Concent 31.9 G/DL (32.0-36.0) L Red Cell Distribution Width 15.9 % (11.6-14.8) H Platelet Count 425 K/UL (150-450) Mean Platelet Volume 5.9 FL (6.5-10.1) L Neutrophils (%) (Auto) 74.8 % (45.0-75.0) Lymphocytes (%) (Auto) 15.4 % (20.0-45.0) L Monocytes (%) (Auto) 7.0 % (1.0-10.0) Eosinophils (%) (Auto) 1.7 % (0.0-3.0) Basophils (%) (Auto) 1.0 % (0.0-2.0) Prothrombin Time 14.6 SEC (9.30-11.50) H Prothromb Time International Ratio 1.4 (0.9-1.1) H Activated Partial Thromboplast Time 42 SEC (23-33) H Sodium Level 134 mEQ/L (135-145) L Potassium Level 3.9 mEQ/L (3.4-4.9) Chloride Level 97 mEQ/L (98-107) L Carbon Dioxide Level 25 mEQ/L (20-30) Anion Gap 12 (5-15) Blood Urea Nitrogen 15 mg/dL (7-23) Creatinine 0.4 mg/dL (0.7-1.2) L Estimat Glomerular Filtration Rate > 60 mL/min (>60) Glucose Level 78 mg/dL (74-106) Calcium Level 8.4 mg/dL (8.6-10.2) L Intake and Output 12/17/16 12/18/16 19:00 07:00 Intake Total 1127.5 ml 985 ml Output Total 800 ml 1600 ml Balance 327.5 ml -615 ml Free Water 50 ml 50 ml IV Total 937.5 ml 935 ml Tube Feeding 140 ml Output Urine Total 800 ml 1600 ml Objective General Appearance: lethargic, thin EENT: PERRL/EOMI, normal ENT inspection Neck: Trach; non-tender, normal alignment, supple Cardiovascular: normal peripheral pulses, regular rhythm, no gallop/murmur, no JVD, tachycardia Respiratory/Chest: Mech vent; chest wall non-tender, crackles/rales, rhonchi - bilaterally, expiratory wheezing Abdomen: normal bowel sounds, non tender, soft, no organomegaly, no mass Neurologic: kindergartner II-XII grossly normal, no motor/sensory deficits Skin: normal pigmentation, warm/dry Assessment/Plan Problem List: (1) UTI (urinary tract infection) Assessment & Plan: Acinetobacter Baumanii. See ID note. D/C vanco and amikacin. Continue tygacil. (2) Tachycardia (3) SOB (shortness of breath) Assessment & Plan: Due to pneurmonia. (4) Hypertension (5) Acute and chronic respiratory failure Assessment & Plan: Currently on Mech vent. See pulmonary note. (6) Emphysema lung (7) Lung abscess (8) Mass of colon (9) Pneumonia Assessment & Plan: see pulmonary and ID note. (10) Mass of cecum Assessment & Plan: See surgery note. S/P Colonoscopy 12/17/16; repeat . Will require resection when stable. Status: not improved TADEO VERDIN Dec 18, 2016 11:20
--- NOTE | 2016-12-18 11:22 | 48 Hour Post Anesthesia Eval ---
Post Anesthesia Evaluation Procedure: Colonoscopy polypectomy Date of Evaluation: Dec 18, 2016 Time of Evaluation: 11:20 Blood Pressure Systolic: 116 0: 72 Pulse Rate: 71 Respiratory Rate: 16 Temperature (Fahrenheit): 97.7 O2 Sat by Pulse Oximetry: 100 Airway: other - ventilator supported ac16 [id number] [id number] peep6.5 Nausea: No Vomiting: No Pain Intensity: 0 Hydration Status: adequate Cardiopulmonary Status: stable Mental Status/LOC: patient returned to baseline Post-Anesthesia Complications: none Follow-up care needed: N/A JOI MO Dec 18, 2016 11:22
--- NOTE | 2016-12-18 11:23 | Pulmonology Progress Note ---
Assessment/Plan Problems: (1) Acute and chronic respiratory failure (2) Feeding by G-tube (3) Emphysema lung (4) Pleural effusion on right Assessment & Plan: s/p thoracentesis and removal of 500 cc fluid Respiratory: monitor respiratory rate, adjust FIO2, CXR Cardiac: continue to monitor HR/BP Renal: F/U I&O, keep IV fluid Infectious Disease: check cultures Gastrointestinal: continue feedings/current rate Endocrine: monitor blood sugar, check TSH, check HgA1C Hematologic: monitor H/H Neurologic: PRN Morphine Affect: PRN ativan Notes Reviewed: associate product manager, cardio 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, consultants - surgery is called for possible lapratomy and resection fo colon tumor, case therapist Subjective ROS Limited/Unobtainable: Yes Interval Events: had antoher colonoscopy, more polypes were removed Allergies: Coded Allergies: No Known Allergies (Unverified , 06/17/16) Objective Last 24 Hour Vital Signs Date Time Temp Pulse Resp B/P Pulse Ox O2 Delivery O2 Flow Rate FiO2 12/18/16 11:18 71 16 100 12/18/16 09:20 76 16 100 Mechanical Ventilator 12/18/16 09:15 77 18 40 12/18/16 09:15 72 16 100 Mechanical Ventilator 40 12/18/16 08:00 74 12/18/16 08:00 97.7 79 20 124/97 100 Mechanical Ventilator 40 12/18/16 08:00 40 12/18/16 06:56 74 16 40 12/18/16 06:56 85 18 Mechanical Ventilator 40 12/18/16 04:50 64 16 40 12/18/16 04:00 40 12/18/16 04:00 89 12/18/16 04:00 98.2 80 22 114/71 100 Trach Collar 12/18/16 02:33 94 18 40 12/18/16 00:57 74 16 40 12/18/16 00:00 40 12/18/16 00:00 86 12/18/16 00:00 98.3 91 17 106/86 100 Mechanical Ventilator 40 12/17/16 22:49 61 16 99 Mechanical Ventilator 40 12/17/16 22:49 60 16 98 Mechanical Ventilator 12/17/16 22:48 75 16 40 12/17/16 21:19 84 17 40 12/17/16 20:40 98.9 62 16 110/70 100 Mechanical Ventilator 40 12/17/16 20:00 40 12/17/16 19:12 63 12/17/16 19:08 77 16 40 12/17/16 19:07 65 16 Mechanical Ventilator 40 12/17/16 16:34 71 16 40 12/17/16 16:00 98.4 90 18 112/70 100 Mechanical Ventilator 40 12/17/16 16:00 40 12/17/16 16:00 84 12/17/16 14:41 66 16 40 12/17/16 13:37 76 10 98 12/17/16 13:35 78 10 98 12/17/16 12:57 78 16 40 12/17/16 12:35 97.0 87 16 111/77 100 Mechanical Ventilator 40 12/17/16 12:00 40 12/17/16 12:00 84 12/17/16 11:40 81 18 100 Mechanical Ventilator 40 Intake and Output 12/17/16 12/18/16 19:00 07:00 Intake Total 1127.5 ml 985 ml Output Total 800 ml 1600 ml Balance 327.5 ml -615 ml Free Water 50 ml 50 ml IV Total 937.5 ml 935 ml Tube Feeding 140 ml Output Urine Total 800 ml 1600 ml Objective General Appearance: cachetic Lines, tubes and drains: peripheral HEENT: normocephalic, atraumatic Neck: non-tender, normal alignment Respiratory/Chest: chest wall non-tender, lungs clear Breasts: no masses Cardiovascular/Chest: normal peripheral pulses Abdomen: normal bowel sounds, non tender Genitourinary/Rectal: normal genital exam Extremities: normal range of motion Laboratory Tests 12/18/16 03:10: White Blood Count 9.8, Red Blood Count 3.50L, Hemoglobin 9.9L, Hematocrit 31.2L , Mean Corpuscular Volume 89, Mean Corpuscular Hemoglobin 28.4, Mean Corpuscular Hemoglobin Concent 31.9L, Red Cell Distribution Width 15.9H, Platelet Count 425, Mean Platelet Volume 5.9L, Neutrophils (%) (Auto) 74.8, Lymphocytes (%) (Auto) 15.4L, Monocytes (%) (Auto) 7.0, Eosinophils (%) (Auto) 1.7, Basophils (%) (Auto) 1.0, Prothrombin Time 14.6H, Prothromb Time International Ratio 1.4H, Activated Partial Thromboplast Time 42H, Sodium Level 134L, Potassium Level 3.9, Chloride Level 97L, Carbon Dioxide Level 25, Anion Gap 12, Blood Urea Nitrogen 15, Creatinine 0.4L, Estimat Glomerular Filtration Rate > 60, Glucose Level 78, Calcium Level 8.4L Current Medications Medications (Trade) Dose Ordered Sig/Shraddha Route PRN Reason Start Time Stop Time Status Last Admin Dose Admin Acetaminophen (Tylenol) 650 mg Q4H PRN ORAL FEVER 12/12/16 19:30 01/11/17 19:29 12/13/16 21:52 Albuterol/ Ipratropium (DuoNeb 0.5-3(2.5)mg/3ml) 3 ml Q4H PRN HHN Shortness of Breath 12/17/16 22:30 12/22/16 22:29 12/18/16 09:29 Atropine Sulfate (Atropine) 0.5 mg Q5M PRN IV BRADYCARDIA 12/18/16 11:15 12/18/16 16:00 Dextrose (Dextrose 50%) STAT PRN IV Hypoglycemia 12/12/16 19:30 01/11/17 19:29 Dextrose/Sodium Chloride (D5 0.45% NS) 1,000 ml @ 75 mls/hr [id number] IV 12/17/16 18:00 01/16/17 17:59 12/18/16 06:28 Diphenhydramine HCl (Benadryl) 25 mg Q15M PRN IVP Itching 12/18/16 11:15 12/18/16 16:00 Heparin Sodium (Porcine) (Heparin 5000 units/ml) 5,000 units EVERY 12 HOURS SUBQ 12/12/16 21:00 01/11/17 20:59 12/16/16 20:55 Hydralazine HCl (Apresoline) 5 mg Q30M PRN IV SBP>160/DBP>90 12/18/16 11:15 12/18/16 16:00 Hydromorphone HCl (Dilaudid) 0.5 mg Q15M PRN IVP Severe Pain (Pain Scale 7-10) 12/18/16 11:15 12/18/16 16:00 Insulin Aspart (NovoLOG) BEFORE MEALS AND HS SUBQ 12/12/16 21:00 01/11/17 20:59 12/15/16 06:35 Lorazepam (Ativan 2mg/ml 1ml) 2 mg Q2H PRN IV For Anxiety 12/12/16 19:30 12/19/16 19:29 Midazolam HCl (Versed 2mg/2ml vial) 1 mg Q15M PRN IVP For Anxiety 12/18/16 11:15 12/18/16 16:00 Morphine Sulfate (Morphine Sulfate) 4 mg Q4H PRN IVP Severe Pain (Pain Scale 7-10) 12/12/16 19:30 12/19/16 19:29 Ondansetron HCl (Zofran) 4 mg Q1H PRN IVP Nausea & Vomiting 12/18/16 11:15 12/18/16 16:00 Ondansetron HCl (Zofran) 4 mg Q6H PRN IVP Nausea & Vomiting 12/12/16 19:30 01/11/17 19:29 Pantoprazole (Protonix) 40 mg DAILY IV 12/13/16 09:00 01/12/17 08:59 12/18/16 09:23 Polyethylene Glycol (Miralax) 17 gm DAILYPRN PRN ORAL Constipation 12/12/16 19:30 01/11/17 19:29 Promethazine HCl/ Codeine 5 ml 5 ml Q4H PRN ORAL For Cough 12/13/16 10:30 01/12/17 10:29 12/15/16 04:29 Tigecycline 50 mg/ Dextrose 110 ml @ 220 mls/hr EVERY 12 HOURS IVPB 12/15/16 09:00 12/22/16 08:59 12/18/16 09:23 REN WRIGHT Dec 18, 2016 11:23
[2016-12-18] MEDS: Heparin 5000 units/ml inj SUBQ SCH ×2 (11:49→20:50)
[2016-12-18 11:50] VITALS: BP 118/68
--- NOTE | 2016-12-18 13:38 | Cardiac Electrophysiology PN ---
Assessment/Plan Assessment/Plan 1. Sinus tachycardia due to underlying sepsis and respiratory failure.No supraventricular tachycardia or atrial fibrillation. 2. Hypotension, likely due to sepsis, resolved. 3. Severe chronic obstructive pulmonary disease and pulmonary hypertension. 4. Pneumonia, on broad-spectrum IV antibiotics. 5. Ventilator-dependent respiratory failure, status post tracheostomy. 6. Status post percutaneous endoscopic gastrostomy placement. 7. Colorectal mass, status post transfusion.S/P EGD and colonoscopy and polyp removal yesterday and more polyp removal today again. 8. Pleural effusion, status post thoracentesis on 11/21/2016 and 12/14/16 DW RN Subjective Subjective Alert in JORDAN on vent via trach. Had colonoscopy again today and more polyps removed. Objective Last 24 Hour Vital Signs Date Time Temp Pulse Resp B/P Pulse Ox O2 Delivery O2 Flow Rate FiO2 12/18/16 13:07 64 16 40 12/18/16 12:00 40 12/18/16 12:00 64 12/18/16 11:50 98.1 66 16 118/68 100 Mechanical Ventilator 40 12/18/16 11:22 71 16 100 12/18/16 11:18 71 16 100 12/18/16 11:10 72 17 40 12/18/16 09:20 76 16 100 Mechanical Ventilator 12/18/16 09:15 77 18 40 12/18/16 09:15 72 16 100 Mechanical Ventilator 40 12/18/16 08:00 74 12/18/16 08:00 97.7 79 20 124/97 100 Mechanical Ventilator 40 12/18/16 08:00 40 12/18/16 06:56 74 16 40 12/18/16 06:56 85 18 Mechanical Ventilator 40 12/18/16 04:50 64 16 40 12/18/16 04:00 40 12/18/16 04:00 89 12/18/16 04:00 98.2 80 22 114/71 100 Trach Collar 12/18/16 02:33 94 18 40 12/18/16 00:57 74 16 40 12/18/16 00:00 40 12/18/16 00:00 86 12/18/16 00:00 98.3 91 17 106/86 100 Mechanical Ventilator 40 12/17/16 22:49 61 16 99 Mechanical Ventilator 40 12/17/16 22:49 60 16 98 Mechanical Ventilator 12/17/16 22:48 75 16 40 12/17/16 21:19 84 17 40 12/17/16 20:40 98.9 62 16 110/70 100 Mechanical Ventilator 40 12/17/16 20:00 40 12/17/16 19:12 63 12/17/16 19:08 77 16 40 12/17/16 19:07 65 16 Mechanical Ventilator 40 12/17/16 16:34 71 16 40 12/17/16 16:00 98.4 90 18 112/70 100 Mechanical Ventilator 40 12/17/16 16:00 40 12/17/16 16:00 84 12/17/16 14:41 66 16 40 12/17/16 13:37 76 10 98 Intake and Output 12/17/16 12/18/16 19:00 07:00 Intake Total 1127.5 ml 985 ml Output Total 800 ml 1600 ml Balance 327.5 ml -615 ml Free Water 50 ml 50 ml IV Total 937.5 ml 935 ml Tube Feeding 140 ml Output Urine Total 800 ml 1600 ml Laboratory Tests Test 12/18/16 03:10 White Blood Count 9.8 K/UL (4.8-10.8) Red Blood Count 3.50 M/UL (4.70-6.10) L Hemoglobin 9.9 G/DL (14.2-18.0) L Hematocrit 31.2 % (42.0-52.0) L Mean Corpuscular Volume 89 FL (80-99) Mean Corpuscular Hemoglobin 28.4 PG (27.0-31.0) Mean Corpuscular Hemoglobin Concent 31.9 G/DL (32.0-36.0) L Red Cell Distribution Width 15.9 % (11.6-14.8) H Platelet Count 425 K/UL (150-450) Mean Platelet Volume 5.9 FL (6.5-10.1) L Neutrophils (%) (Auto) 74.8 % (45.0-75.0) Lymphocytes (%) (Auto) 15.4 % (20.0-45.0) L Monocytes (%) (Auto) 7.0 % (1.0-10.0) Eosinophils (%) (Auto) 1.7 % (0.0-3.0) Basophils (%) (Auto) 1.0 % (0.0-2.0) Prothrombin Time 14.6 SEC (9.30-11.50) H Prothromb Time International Ratio 1.4 (0.9-1.1) H Activated Partial Thromboplast Time 42 SEC (23-33) H Sodium Level 134 mEQ/L (135-145) L Potassium Level 3.9 mEQ/L (3.4-4.9) Chloride Level 97 mEQ/L (98-107) L Carbon Dioxide Level 25 mEQ/L (20-30) Anion Gap 12 (5-15) Blood Urea Nitrogen 15 mg/dL (7-23) Creatinine 0.4 mg/dL (0.7-1.2) L Estimat Glomerular Filtration Rate > 60 mL/min (>60) Glucose Level 78 mg/dL (74-106) Calcium Level 8.4 mg/dL (8.6-10.2) L Objective HEAD AND NECK: Shows no JVD and tracheostomy intact. LUNGS: Have coarse rhonchi. CARDIOVASCULAR: Tachycardic S1, S2 with no gallop or murmur. ABDOMEN: Soft. EXTREMITIES: One plus edema. OSWALD HILLS Dec 18, 2016 13:38
[2016-12-18 16:00] VITALS: BP 105/70
--- NOTE | 2016-12-18 16:30 | Procedure Note ---
DATE OF PROCEDURE: 12/17/2016 SURGEON: Iván Quiroz M.D. PROCEDURE: Colonoscopy with biopsy and snare polypectomy. ANESTHESIOLOGIST: Germán Santos M.D. INSTRUMENT: Olympus adult flexible colonoscope. INDICATION: Colonic mass seen on the CT. REASON FOR PROCEDURE: The procedure, risks, benefits, and possible consequences, including hemorrhage, aspiration, perforation and infection, and alternative treatments, were explained to the patient/legal guardian by Dr. Iván Quiroz and the patient/legal guardian understood and accepted these risks. DESCRIPTION OF PROCEDURE: After informed consent was obtained and the patient was adequately sedated, first rectal exam was performed, which was normal. Then, the scope was advanced from the rectum into the area seems to be cecum, we could not see the cecum because there is a mass covering that area. We did a biopsy of this mass and it was sent to the pathology. There was another polyp close to this mass roughly measured 1.5 centimeter, but given this polyp so close to this mass in the cecum and has to be resected together we did not remove that polyp. There were multiple other large polyps in this colonoscopy examination, one of the largest one was in the transverse colon over 2 centimeter which was biopsied. There was another pedunculated polyp in the sigmoid colon, which was removed with snare polypectomy technique, this polyp was roughly about 2 cm. There was also few other largest polyps in this colonoscopy examination which we did not remove at this time because the patient's INR was elevated and we wanted to correct that before going back and remove those. SUMMARY OF FINDINGS: 1. Cecal mass status post biopsy, see above for details. 2. Multiple colonic polyps, one of them removed, see above for detail. RECOMMENDATIONS: We will plan to repeat the colonoscopy tomorrow when INR is corrected, remove the rest of the polyps, and we will also plan to consult surgery for possible resection. I want to thank, Dr. Steve Rader, for this kind referral. Iván Quiroz M.D. DR: Felipe JOB#: [id number] CC: Steve Rader M.D.; Fax#: [phone]
[2016-12-18 20:00] VITALS: BP 107/79
--- NOTE | 2016-12-18 22:15 | Procedure Note ---
DATE OF PROCEDURE: 12/18/2016 PROCEDURE: Colonoscopy with snare polypectomy. SURGEON: Iván Quiroz M.D. ANESTHESIOLOGIST: INSTRUMENT: Olympus adult flexible colonoscope. INDICATION: Large colonic polyp. REASON FOR PROCEDURE: The procedure, risks, benefits, and possible consequences, including hemorrhage, aspiration, perforation and infection, and alternative treatments, were explained to the patient/legal guardian by Dr. Iván Quiroz and the patient/legal guardian understood and accepted these risks. DESCRIPTION OF PROCEDURE: After informed consent was obtained and the patient was adequately sedated, first rectal exam was performed, which was normal. Then, the scope was advanced from the rectum into the ascending colon. The patient had total of 12 polyps seen in this colonoscopy examination. Most of these polyps were in the transverse colon. These polyps were large. I would say the largest one was maybe about 2.5 cm in size. We performed snare polypectomy technique on most of the polyps. We used the [employer] to collect as many as six colonic polyps as we could after we cut them. Sometimes, we had a hard time to collect the polyp that we cut. The patient tolerated the procedure well without any complication. Summary of findings, multiple large colonic polyps, status post polypectomy. PLAN: I discussed with the surgeon. We are waiting for the results of pathology for these polyps. We are waiting for the results of biopsy from a colonic mass, which was done yesterday. Based on that, we are going to see the extent of the surgery needed. If the patient only needs a right hemicolectomy, we will recommend colonoscopy a year after that to follow up on the more polyps that most probably this patient will have. Iván Quiroz M.D. DR: Felipe JOB#: [id number] CC:
[2016-12-19] VITALS (7 sets, daily range): BP systolic 92–122; BP diastolic 56–79
[2016-12-19] MEDS: DuoNeb 0.5-3(2.5)mg/3ml neb HHN PRN ×2 (01:36→10:33)
[2016-12-19 05:20] LABS: EOSINOPHILS % (AUTO) 1.2 % (0.0-3.0); LYMPHOCYTES % (AUTO) 12.3 % (20.0-45.0); MEAN CORPUSCULAR HEMOGLOBIN 29.9 PG (27.0-31.0); MEAN CORPUSCULAR HGB CONC 33.6 G/DL (32.0-36.0); MEAN CORPUSCULAR VOLUME 89 FL (80-99); MEAN PLATELET VOLUME 6.4 FL (6.5-10.1); NEUTROPHILS % (AUTO) 79.5 % (45.0-75.0); PLATELET COUNT 360 K/UL (150-450); RED BLOOD COUNT 3.27 M/UL (4.70-6.10); RED CELL DISTRIBUTION WIDTH 15.6 % (11.6-14.8); WHITE BLOOD COUNT 10.6 K/UL (4.8-10.8)
[2016-12-19 05:50] LABS: ALANINE AMINOTRANSFERASE 8 U/L (3-41); ALBUMIN/GLOBULIN RATIO 0.3 (1.0-2.7); ANION GAP 13 (5-15); ASPARTATE AMINO TRANSFERASE 12 U/L (5-40); CARBON DIOXIDE 26 mEQ/L (20-30); CHLORIDE 98 mEQ/L (98-107); CREATININE 0.4 mg/dL (0.7-1.2); GLOMERULAR FILTRATION RATE > 60 mL/min (>60); HEMOLYSIS 3; POTASSIUM 3.8 mEQ/L (3.4-4.9); SODIUM 137 mEQ/L (135-145); TOTAL PROTEIN 6.3 g/dL (6.6-8.7)
[2016-12-19] MEDS: NovoLOG Insulin Flexpen SUBQ SCH ×4 (06:23→20:20)
[2016-12-19] MEDS: Pantoprazole Inj IV SCH (09:48)
[2016-12-19] MEDS: Tigecycline 50 MG in D5W 110 ML IVPB SCH ×2 (09:48→20:19)
[2016-12-19] MEDS: Heparin 5000 units/ml inj SUBQ SCH ×2 (09:54→20:20)
--- NOTE | 2016-12-19 10:16 | General Surgery Progress Note ---
General Surgery-Progress Note Subjective Additional Comments pt seen and examined at bedside. no acute changes. comfortable. Objective Last 24 Hour Vital Signs Date Time Temp Pulse Resp B/P Pulse Ox O2 Delivery O2 Flow Rate FiO2 12/19/16 08:35 77 19 40 12/19/16 08:00 70 12/19/16 07:02 69 18 40 12/19/16 05:05 76 17 40 12/19/16 04:00 97.5 86 18 110/75 100 Mechanical Ventilator 40 12/19/16 04:00 81 12/19/16 04:00 40 12/19/16 02:59 97 18 40 12/19/16 01:52 90 17 100 Mechanical Ventilator 80.0 40 12/19/16 01:48 40 12/19/16 01:47 86 16 100 Mechanical Ventilator 80.0 40 12/19/16 01:37 88 21 40 12/19/16 00:00 92 12/19/16 00:00 40 12/19/16 00:00 98.2 95 18 113/79 100 Mechanical Ventilator 40 12/18/16 23:09 95 20 40 12/18/16 21:13 95 22 100 Mechanical Ventilator 80.0 40 12/18/16 21:07 95 19 100 Mechanical Ventilator 80.0 40 12/18/16 21:02 96 22 40 12/18/16 20:00 40 12/18/16 20:00 99.0 91 21 107/79 100 Mechanical Ventilator 40 12/18/16 20:00 99 12/18/16 19:29 98 22 40 12/18/16 17:08 73 16 40 12/18/16 16:00 98.2 84 16 105/70 96 Mechanical Ventilator 40 12/18/16 16:00 70 12/18/16 16:00 40 12/18/16 15:26 85 16 100 Mechanical Ventilator 12/18/16 15:23 90 20 40 12/18/16 15:20 85 20 100 Mechanical Ventilator 40 12/18/16 13:15 90 20 40 12/18/16 13:07 64 16 40 12/18/16 12:00 40 12/18/16 12:00 64 12/18/16 11:50 98.1 66 16 118/68 100 Mechanical Ventilator 40 12/18/16 11:22 71 16 100 12/18/16 11:18 71 16 100 12/18/16 11:10 72 17 40 I&O Intake and Output 12/18/16 12/19/16 19:00 07:00 Intake Total 1740 ml 1033 ml Output Total 5900 ml 1275 ml Balance -4160 ml -242 ml Free Water 100 ml 100 ml IV Total 1010 ml 863 ml Tube Feeding 630 ml 70 ml Output Urine Total 5900 ml 1275 ml # Bowel Movements 2 2 Cardiovascular: RSR Respiratory: clear Abdomen: soft, flat, non-tender, present bowel sounds Extremities: no edema, no tenderness, no cyanosis Laboratory Tests Test 12/19/16 03:35 White Blood Count 10.6 K/UL (4.8-10.8) Red Blood Count 3.27 M/UL (4.70-6.10) L Hemoglobin 9.8 G/DL (14.2-18.0) L Hematocrit 29.1 % (42.0-52.0) L Mean Corpuscular Volume 89 FL (80-99) Mean Corpuscular Hemoglobin 29.9 PG (27.0-31.0) Mean Corpuscular Hemoglobin Concent 33.6 G/DL (32.0-36.0) Red Cell Distribution Width 15.6 % (11.6-14.8) H Platelet Count 360 K/UL (150-450) Mean Platelet Volume 6.4 FL (6.5-10.1) L Neutrophils (%) (Auto) 79.5 % (45.0-75.0) H Lymphocytes (%) (Auto) 12.3 % (20.0-45.0) L Monocytes (%) (Auto) 6.0 % (1.0-10.0) Eosinophils (%) (Auto) 1.2 % (0.0-3.0) Basophils (%) (Auto) 1.0 % (0.0-2.0) Sodium Level 137 mEQ/L (135-145) Potassium Level 3.8 mEQ/L (3.4-4.9) Chloride Level 98 mEQ/L (98-107) Carbon Dioxide Level 26 mEQ/L (20-30) Anion Gap 13 (5-15) Blood Urea Nitrogen 16 mg/dL (7-23) Creatinine 0.4 mg/dL (0.7-1.2) L Estimat Glomerular Filtration Rate > 60 mL/min (>60) Glucose Level 79 mg/dL (74-106) Calcium Level 8.0 mg/dL (8.6-10.2) L Total Bilirubin 0.2 mg/dL (0.0-1.2) Aspartate Amino Transf (AST/SGOT) 12 U/L (5-40) Alanine Aminotransferase (ALT/SGPT) 8 U/L (3-41) Alkaline Phosphatase 110 U/L (40-129) Total Protein 6.3 g/dL (6.6-8.7) L Albumin 1.7 g/dL (3.5-5.2) L Globulin 4.6 g/dL Albumin/Globulin Ratio 0.3 (1.0-2.7) L Plan Problems: (1) Mass of colon Assessment & Plan: 66M large colonic mass and multiple colonic polyps. Recent colonoscopy(s) performed and biopsy of mass taken as well as multiple other polyps. Awaiting pathology results. Given size and appearance of mass will likely need excision as it will soon cause obstruction if it continues to grow. Mass seen on two prior abdominal CT scans (06/2016 and 11/2016); large and growing. Will need to see what pathology from other polyps are before planning surgical intervention (partial colectomy vs subtotal) okay for diet from surgical standpoint at this time. once surgery scheduled will prep and change diet accordingly. Landon Farfan Dec 19, 2016 10:16
--- NOTE | 2016-12-19 10:35 | Infectious Diseases Prog Note ---
Assessment/Plan Assessment/Plan ASSESSMENT: 66 y/o male with: // Probable recurrent HCAP / VAP r/o empyema - SCx : not sent - CXR 12/13: Fairly extensive infiltrate throughout the right lung persists, may be slightly worse. Left lung and pleural space remain clear - h/o MDR ACB, PSA - CT 11/14 :Extensive pneumonia involving both lungs as described above. 5-6 cm cavitary focus suspicious for lung abscess in the right upper lobe. // Recurrent pleural effusion no evid of empyema or malignancy - SP thoracentesis 12/13 - - SP thoracentesis 11/21 neg empyema // Recurrent MDR-ACB UTI - h/o yeast, VRE // Leukocytosis - SP , afebrile ( DVT, probable CA contributing ) // HIV and Hep B/C : neg // Colon mass, elevated CEA ro cancer SP Colonoscopy with biopsy and snare polypectomy 12/18 CT: Large cecal mass and other polypoid colonic masses, detailed previously , again demonstrated // Acute on chronic VDRF SP trach, PEG - h/o COPD // Severe pulmonary HTN / grade I diastolic dysfunction / mod TR // Pulmonary nodules // h/o chronic RLE DVT - repeat doppler neg // Thrombocytosis // [place] resident // MDRO colonized // NKDA // Full Code PLAN: - cont tygacil d# 5 / SP IV vancomycin, amikacin d# 2 - monitor CBC, temperatures - monitor BMP - monitor CXR - vent support, trach care, aspiration precautions Subjective Allergies: Coded Allergies: No Known Allergies (Unverified , 06/17/16) Subjective SP Colonoscopy with biopsy and snare polypectomy Objective Vital Signs Last 24 Hour Vital Signs Date Time Temp Pulse Resp B/P Pulse Ox O2 Delivery O2 Flow Rate FiO2 12/19/16 08:35 77 19 40 12/19/16 08:00 70 12/19/16 07:02 69 18 40 12/19/16 05:05 76 17 40 12/19/16 04:00 97.5 86 18 110/75 100 Mechanical Ventilator 40 12/19/16 04:00 81 12/19/16 04:00 40 12/19/16 02:59 97 18 40 12/19/16 01:52 90 17 100 Mechanical Ventilator 80.0 40 12/19/16 01:48 40 12/19/16 01:47 86 16 100 Mechanical Ventilator 80.0 40 12/19/16 01:37 88 21 40 12/19/16 00:00 92 12/19/16 00:00 40 12/19/16 00:00 98.2 95 18 113/79 100 Mechanical Ventilator 40 12/18/16 23:09 95 20 40 12/18/16 21:13 95 22 100 Mechanical Ventilator 80.0 40 12/18/16 21:07 95 19 100 Mechanical Ventilator 80.0 40 12/18/16 21:02 96 22 40 12/18/16 20:00 40 12/18/16 20:00 99.0 91 21 107/79 100 Mechanical Ventilator 40 12/18/16 20:00 99 12/18/16 19:29 98 22 40 12/18/16 17:08 73 16 40 12/18/16 16:00 98.2 84 16 105/70 96 Mechanical Ventilator 40 12/18/16 16:00 70 12/18/16 16:00 40 12/18/16 15:26 85 16 100 Mechanical Ventilator 12/18/16 15:23 90 20 40 12/18/16 15:20 85 20 100 Mechanical Ventilator 40 12/18/16 13:15 90 20 40 12/18/16 13:07 64 16 40 12/18/16 12:00 40 12/18/16 12:00 64 12/18/16 11:50 98.1 66 16 118/68 100 Mechanical Ventilator 40 12/18/16 11:22 71 16 100 12/18/16 11:18 71 16 100 12/18/16 11:10 72 17 40 Height (Feet): 5 Height (Inches): 9.00 Weight (Pounds): 130 HEENT: anicteric Respiratory/Chest: normal breath sounds Cardiovascular: regularly irregular Abdomen: no organomegaly Laboratory Tests Test 12/19/16 03:35 White Blood Count 10.6 K/UL (4.8-10.8) Red Blood Count 3.27 M/UL (4.70-6.10) L Hemoglobin 9.8 G/DL (14.2-18.0) L Hematocrit 29.1 % (42.0-52.0) L Mean Corpuscular Volume 89 FL (80-99) Mean Corpuscular Hemoglobin 29.9 PG (27.0-31.0) Mean Corpuscular Hemoglobin Concent 33.6 G/DL (32.0-36.0) Red Cell Distribution Width 15.6 % (11.6-14.8) H Platelet Count 360 K/UL (150-450) Mean Platelet Volume 6.4 FL (6.5-10.1) L Neutrophils (%) (Auto) 79.5 % (45.0-75.0) H Lymphocytes (%) (Auto) 12.3 % (20.0-45.0) L Monocytes (%) (Auto) 6.0 % (1.0-10.0) Eosinophils (%) (Auto) 1.2 % (0.0-3.0) Basophils (%) (Auto) 1.0 % (0.0-2.0) Sodium Level 137 mEQ/L (135-145) Potassium Level 3.8 mEQ/L (3.4-4.9) Chloride Level 98 mEQ/L (98-107) Carbon Dioxide Level 26 mEQ/L (20-30) Anion Gap 13 (5-15) Blood Urea Nitrogen 16 mg/dL (7-23) Creatinine 0.4 mg/dL (0.7-1.2) L Estimat Glomerular Filtration Rate > 60 mL/min (>60) Glucose Level 79 mg/dL (74-106) Calcium Level 8.0 mg/dL (8.6-10.2) L Total Bilirubin 0.2 mg/dL (0.0-1.2) Aspartate Amino Transf (AST/SGOT) 12 U/L (5-40) Alanine Aminotransferase (ALT/SGPT) 8 U/L (3-41) Alkaline Phosphatase 110 U/L (40-129) Total Protein 6.3 g/dL (6.6-8.7) L Albumin 1.7 g/dL (3.5-5.2) L Globulin 4.6 g/dL Albumin/Globulin Ratio 0.3 (1.0-2.7) L Current Medications Medications (Trade) Dose Ordered Sig/Shraddha Route PRN Reason Start Time Stop Time Status Last Admin Dose Admin Acetaminophen (Tylenol) 650 mg Q4H PRN ORAL FEVER 12/12/16 19:30 01/11/17 19:29 12/13/16 21:52 Albuterol/ Ipratropium 3 ml 3 ml Q4H PRN HHN Shortness of Breath 12/17/16 22:30 12/22/16 22:29 12/19/16 01:36 Dextrose (Dextrose 50%) STAT PRN IV Hypoglycemia 12/12/16 19:30 01/11/17 19:29 Heparin Sodium (Porcine) (Heparin 5000 units/ml) 5,000 units EVERY 12 HOURS SUBQ 12/12/16 21:00 01/11/17 20:59 12/19/16 09:54 Insulin Aspart (NovoLOG) BEFORE MEALS AND HS SUBQ 12/12/16 21:00 01/11/17 20:59 12/18/16 20:53 Lorazepam (Ativan 2mg/ml 1ml) 2 mg Q2H PRN IV For Anxiety 12/12/16 19:30 12/19/16 19:29 Morphine Sulfate (Morphine Sulfate) 4 mg Q4H PRN IVP Severe Pain (Pain Scale 7-10) 12/12/16 19:30 12/19/16 19:29 Ondansetron HCl (Zofran) 4 mg Q6H PRN IVP Nausea & Vomiting 12/12/16 19:30 01/11/17 19:29 Pantoprazole (Protonix) 40 mg DAILY IV 12/13/16 09:00 01/12/17 08:59 12/19/16 09:48 Polyethylene Glycol (Miralax) 17 gm DAILYPRN PRN ORAL Constipation 12/12/16 19:30 01/11/17 19:29 Promethazine HCl/ Codeine 5 ml 5 ml Q4H PRN ORAL For Cough 12/13/16 10:30 01/12/17 10:29 12/15/16 04:29 Sodium Chloride (Sodium Chloride 1000ml bag) 1,000 ml @ 75 mls/hr [id number] IV 12/18/16 22:15 01/17/17 22:14 12/18/16 22:41 Tigecycline/ Dextrose (Tygacil/D5W) 110 ml @ 220 mls/hr EVERY 12 HOURS IVPB 12/15/16 09:00 12/22/16 08:59 12/19/16 09:48 KIMBERLEE HINKLE M.D. Dec 19, 2016 10:35
--- NOTE | 2016-12-19 10:57 | GI Progress Note ---
Assessment/Plan Problems: (1) Mass of cecum ICD Codes: K63.9 - Disease of intestine, unspecified SNOMED: 645591036 (2) Severe anemia ICD Codes: D64.9 - Anemia, unspecified SNOMED: 340866017 (3) Colonic mass ICD Codes: K63.9 - Disease of intestine, unspecified SNOMED: 281505663 (4) Gastric mass ICD Codes: K31.9 - Disease of stomach and duodenum, unspecified SNOMED: 470025022 (5) LFTs abnormal ICD Codes: R79.89 - Other specified abnormal findings of blood chemistry SNOMED: 149501102 (6) DVT (deep venous thrombosis) ICD Codes: I82.409 - Acute embolism and thrombosis of unspecified deep veins of unspecified lower extremity SNOMED: 223402925 (7) ENMA (iron deficiency anemia) ICD Codes: D50.9 - Iron deficiency anemia, unspecified SNOMED: 14036991 (8) Dysphagia ICD Codes: R13.10 - Dysphagia, unspecified SNOMED: 18754039, 487162460 (9) Anemia ICD Codes: D64.9 - Anemia, unspecified SNOMED: 692795919 Status: unchanged Status Narrative Discussed with Dr. Quiroz. Assessment/Plan S/P COLONOSCOPY SUMMARY OF FINDINGS: 1. Cecal mass status post biopsy, see above for details. 2. 12 colonic polyps PLAN: fu with surgical recs >> possible right hemicolectomy fu biopsy report recommend patient for f/u colonoscopy given multiple polyps monitor H&H, transfuse prn GTFs ppi fu labs Subjective Subjective limited Objective Last 24 Hour Vital Signs Date Time Temp Pulse Resp B/P Pulse Ox O2 Delivery O2 Flow Rate FiO2 12/19/16 10:33 82 19 40 12/19/16 08:35 77 19 40 12/19/16 08:00 70 12/19/16 07:02 69 18 40 12/19/16 05:05 76 17 40 12/19/16 04:00 97.5 86 18 110/75 100 Mechanical Ventilator 40 12/19/16 04:00 81 12/19/16 04:00 40 12/19/16 02:59 97 18 40 12/19/16 01:52 90 17 100 Mechanical Ventilator 80.0 40 12/19/16 01:48 40 12/19/16 01:47 86 16 100 Mechanical Ventilator 80.0 40 12/19/16 01:37 88 21 40 12/19/16 00:00 92 12/19/16 00:00 40 12/19/16 00:00 98.2 95 18 113/79 100 Mechanical Ventilator 40 12/18/16 23:09 95 20 40 12/18/16 21:13 95 22 100 Mechanical Ventilator 80.0 40 12/18/16 21:07 95 19 100 Mechanical Ventilator 80.0 40 12/18/16 21:02 96 22 40 12/18/16 20:00 40 12/18/16 20:00 99.0 91 21 107/79 100 Mechanical Ventilator 40 12/18/16 20:00 99 12/18/16 19:29 98 22 40 12/18/16 17:08 73 16 40 12/18/16 16:00 98.2 84 16 105/70 96 Mechanical Ventilator 40 12/18/16 16:00 70 12/18/16 16:00 40 12/18/16 15:26 85 16 100 Mechanical Ventilator 12/18/16 15:23 90 20 40 12/18/16 15:20 85 20 100 Mechanical Ventilator 40 12/18/16 13:15 90 20 40 12/18/16 13:07 64 16 40 12/18/16 12:00 40 12/18/16 12:00 64 12/18/16 11:50 98.1 66 16 118/68 100 Mechanical Ventilator 40 12/18/16 11:22 71 16 100 12/18/16 11:18 71 16 100 12/18/16 11:10 72 17 40 Intake and Output 12/18/16 12/19/16 19:00 07:00 Intake Total 1740 ml 1033 ml Output Total 5900 ml 1275 ml Balance -4160 ml -242 ml Free Water 100 ml 100 ml IV Total 1010 ml 863 ml Tube Feeding 630 ml 70 ml Output Urine Total 5900 ml 1275 ml # Bowel Movements 2 2 Laboratory Tests Test 12/19/16 03:35 White Blood Count 10.6 K/UL (4.8-10.8) Red Blood Count 3.27 M/UL (4.70-6.10) L Hemoglobin 9.8 G/DL (14.2-18.0) L Hematocrit 29.1 % (42.0-52.0) L Mean Corpuscular Volume 89 FL (80-99) Mean Corpuscular Hemoglobin 29.9 PG (27.0-31.0) Mean Corpuscular Hemoglobin Concent 33.6 G/DL (32.0-36.0) Red Cell Distribution Width 15.6 % (11.6-14.8) H Platelet Count 360 K/UL (150-450) Mean Platelet Volume 6.4 FL (6.5-10.1) L Neutrophils (%) (Auto) 79.5 % (45.0-75.0) H Lymphocytes (%) (Auto) 12.3 % (20.0-45.0) L Monocytes (%) (Auto) 6.0 % (1.0-10.0) Eosinophils (%) (Auto) 1.2 % (0.0-3.0) Basophils (%) (Auto) 1.0 % (0.0-2.0) Sodium Level 137 mEQ/L (135-145) Potassium Level 3.8 mEQ/L (3.4-4.9) Chloride Level 98 mEQ/L (98-107) Carbon Dioxide Level 26 mEQ/L (20-30) Anion Gap 13 (5-15) Blood Urea Nitrogen 16 mg/dL (7-23) Creatinine 0.4 mg/dL (0.7-1.2) L Estimat Glomerular Filtration Rate > 60 mL/min (>60) Glucose Level 79 mg/dL (74-106) Calcium Level 8.0 mg/dL (8.6-10.2) L Total Bilirubin 0.2 mg/dL (0.0-1.2) Aspartate Amino Transf (AST/SGOT) 12 U/L (5-40) Alanine Aminotransferase (ALT/SGPT) 8 U/L (3-41) Alkaline Phosphatase 110 U/L (40-129) Total Protein 6.3 g/dL (6.6-8.7) L Albumin 1.7 g/dL (3.5-5.2) L Globulin 4.6 g/dL Albumin/Globulin Ratio 0.3 (1.0-2.7) L Height (Feet): 5 Height (Inches): 9.00 Weight (Pounds): 130 General Appearance: no apparent distress, alert, thin Cardiovascular: normal rate Respiratory/Chest: other - mech vent Abdominal Exam: GT site - c/d/i Angeles Galloway N.P. Dec 19, 2016 10:57
--- NOTE | 2016-12-19 12:16 | Pulmonology Progress Note ---
Assessment/Plan Problems: (1) Acute and chronic respiratory failure (2) Feeding by G-tube (3) Emphysema lung (4) Pleural effusion on right Assessment & Plan: s/p thoracentesis and removal of 500 cc fluid Respiratory: monitor respiratory rate, adjust FIO2 Renal: F/U I&O, keep IV fluid, check electrolytes Infectious Disease: check cultures Gastrointestinal: continue feedings/current rate - on glucerna Endocrine: check TSH, check HgA1C, continue sliding scale insulin Hematologic: monitor H/H, transfuse if hgb<8.5 Neurologic: PRN Ativan, keep patient comfortable Affect: PRN ativan Prophylaxis: Heparin 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, consultants, bottle caser Subjective ROS Limited/Unobtainable: No Constitutional: Reports: no symptoms HEENT: Repors: no symptoms Allergies: Coded Allergies: No Known Allergies (Unverified , 06/17/16) Objective Last 24 Hour Vital Signs Date Time Temp Pulse Resp B/P Pulse Ox O2 Delivery O2 Flow Rate FiO2 12/19/16 10:33 82 19 40 12/19/16 08:35 77 19 40 12/19/16 08:00 97.9 75 17 92/56 100 Mechanical Ventilator 40 12/19/16 08:00 70 12/19/16 08:00 40 12/19/16 07:02 69 18 40 12/19/16 05:05 76 17 40 12/19/16 04:00 97.5 86 18 110/75 100 Mechanical Ventilator 40 12/19/16 04:00 81 12/19/16 04:00 40 12/19/16 02:59 97 18 40 12/19/16 01:52 90 17 100 Mechanical Ventilator 80.0 40 12/19/16 01:48 40 12/19/16 01:47 86 16 100 Mechanical Ventilator 80.0 40 12/19/16 01:37 88 21 40 12/19/16 00:00 92 12/19/16 00:00 40 12/19/16 00:00 98.2 95 18 113/79 100 Mechanical Ventilator 40 12/18/16 23:09 95 20 40 12/18/16 21:13 95 22 100 Mechanical Ventilator 80.0 40 12/18/16 21:07 95 19 100 Mechanical Ventilator 80.0 40 12/18/16 21:02 96 22 40 12/18/16 20:00 40 12/18/16 20:00 99.0 91 21 107/79 100 Mechanical Ventilator 40 12/18/16 20:00 99 12/18/16 19:29 98 22 40 12/18/16 17:08 73 16 40 12/18/16 16:00 98.2 84 16 105/70 96 Mechanical Ventilator 40 12/18/16 16:00 70 12/18/16 16:00 40 12/18/16 15:26 85 16 100 Mechanical Ventilator 12/18/16 15:23 90 20 40 12/18/16 15:20 85 20 100 Mechanical Ventilator 40 12/18/16 13:15 90 20 40 12/18/16 13:07 64 16 40 Intake and Output 12/18/16 12/19/16 19:00 07:00 Intake Total 1740 ml 1033 ml Output Total 5900 ml 1275 ml Balance -4160 ml -242 ml Free Water 100 ml 100 ml IV Total 1010 ml 863 ml Tube Feeding 630 ml 70 ml Output Urine Total 5900 ml 1275 ml # Bowel Movements 2 2 Objective General Appearance: cachetic Lines, tubes and drains: peripheral HEENT: normocephalic, atraumatic Neck: non-tender, normal alignment Respiratory/Chest: chest wall non-tender, lungs clear Breasts: no masses Cardiovascular/Chest: normal peripheral pulses Abdomen: normal bowel sounds, non tender Genitourinary/Rectal: normal genital exam Extremities: normal range of motion Laboratory Tests 12/19/16 03:35: White Blood Count 10.6, Red Blood Count 3.27L, Hemoglobin 9.8L, Hematocrit 29.1L , Mean Corpuscular Volume 89, Mean Corpuscular Hemoglobin 29.9, Mean Corpuscular Hemoglobin Concent 33.6, Red Cell Distribution Width 15.6H, Platelet Count 360, Mean Platelet Volume 6.4L, Neutrophils (%) (Auto) 79.5H, Lymphocytes (%) (Auto) 12.3L, Monocytes (%) (Auto) 6.0, Eosinophils (%) (Auto) 1.2, Basophils (%) (Auto) 1.0, Sodium Level 137, Potassium Level 3.8, Chloride Level 98, Carbon Dioxide Level 26, Anion Gap 13, Blood Urea Nitrogen 16, Creatinine 0.4L, Estimat Glomerular Filtration Rate > 60, Glucose Level 79, Calcium Level 8.0L, Total Bilirubin 0.2, Aspartate Amino Transf (AST/SGOT) 12, Alanine Aminotransferase (ALT/SGPT) 8, Alkaline Phosphatase 110, Total Protein 6.3L, Albumin 1.7L, Globulin 4.6, Albumin/Globulin Ratio 0.3L Current Medications Medications (Trade) Dose Ordered Sig/Shraddha Route PRN Reason Start Time Stop Time Status Last Admin Dose Admin Acetaminophen (Tylenol) 650 mg Q4H PRN ORAL FEVER 12/12/16 19:30 01/11/17 19:29 12/13/16 21:52 Albuterol/ Ipratropium 3 ml 3 ml Q4H PRN HHN Shortness of Breath 12/17/16 22:30 12/22/16 22:29 12/19/16 10:33 Dextrose (Dextrose 50%) STAT PRN IV Hypoglycemia 12/12/16 19:30 01/11/17 19:29 Heparin Sodium (Porcine) (Heparin 5000 units/ml) 5,000 units EVERY 12 HOURS SUBQ 12/12/16 21:00 01/11/17 20:59 12/19/16 09:54 Insulin Aspart (NovoLOG) BEFORE MEALS AND HS SUBQ 12/12/16 21:00 01/11/17 20:59 12/18/16 20:53 Lorazepam (Ativan 2mg/ml 1ml) 2 mg Q2H PRN IV For Anxiety 12/12/16 19:30 12/19/16 19:29 Morphine Sulfate (Morphine Sulfate) 4 mg Q4H PRN IVP Severe Pain (Pain Scale 7-10) 12/12/16 19:30 12/19/16 19:29 Ondansetron HCl (Zofran) 4 mg Q6H PRN IVP Nausea & Vomiting 12/12/16 19:30 01/11/17 19:29 Pantoprazole (Protonix) 40 mg DAILY IV 12/13/16 09:00 01/12/17 08:59 12/19/16 09:48 Polyethylene Glycol (Miralax) 17 gm DAILYPRN PRN ORAL Constipation 12/12/16 19:30 01/11/17 19:29 Promethazine HCl/ Codeine 5 ml 5 ml Q4H PRN ORAL For Cough 12/13/16 10:30 01/12/17 10:29 12/15/16 04:29 Sodium Chloride (Sodium Chloride 1000ml bag) 1,000 ml @ 75 mls/hr [id number] IV 12/18/16 22:15 01/17/17 22:14 12/18/16 22:41 Tigecycline/ Dextrose (Tygacil/D5W) 110 ml @ 220 mls/hr EVERY 12 HOURS IVPB 12/15/16 09:00 12/22/16 08:59 12/19/16 09:48 REN WRIGHT Dec 19, 2016 12:16
--- NOTE | 2016-12-19 15:37 | Cardiac Electrophysiology PN ---
Assessment/Plan Assessment/Plan 1. Sinus tachycardia due to underlying sepsis and respiratory failure.No supraventricular tachycardia or atrial fibrillation. 2. Hypotension, likely due to sepsis, resolved. 3. Severe chronic obstructive pulmonary disease and pulmonary hypertension. 4. Pneumonia, on broad-spectrum IV antibiotics. 5. Ventilator-dependent respiratory failure, status post tracheostomy. 6. Status post percutaneous endoscopic gastrostomy placement. 7. Cecal mass, status post transfusion.S/P EGD and colonoscopy and polyp removal twice. Mass seen on two prior abdominal CT scans (06/2016 and 11/2016) large and growing. Surgery awaiting pathology from other polyps before planning surgical intervention (partial colectomy vs subtotal) per surgery 8. Pleural effusion, status post thoracentesis on 11/21/2016 and 12/14/16 DW RN Subjective Subjective Alert in JORDAN on vent via trach. No arrhythmias reported. Objective Last 24 Hour Vital Signs Date Time Temp Pulse Resp B/P Pulse Ox O2 Delivery O2 Flow Rate FiO2 12/19/16 14:56 69 16 40 12/19/16 12:30 86 19 40 12/19/16 12:00 97.7 86 18 103/70 100 Mechanical Ventilator 40 12/19/16 12:00 81 12/19/16 12:00 40 12/19/16 10:33 82 19 40 12/19/16 08:35 77 19 40 12/19/16 08:00 97.9 75 17 92/56 100 Mechanical Ventilator 40 12/19/16 08:00 70 12/19/16 08:00 40 12/19/16 07:02 69 18 40 12/19/16 05:05 76 17 40 12/19/16 04:00 97.5 86 18 110/75 100 Mechanical Ventilator 40 12/19/16 04:00 81 12/19/16 04:00 40 12/19/16 02:59 97 18 40 12/19/16 01:52 90 17 100 Mechanical Ventilator 80.0 40 12/19/16 01:48 40 12/19/16 01:47 86 16 100 Mechanical Ventilator 80.0 40 12/19/16 01:37 88 21 40 12/19/16 00:00 92 12/19/16 00:00 40 12/19/16 00:00 98.2 95 18 113/79 100 Mechanical Ventilator 40 12/18/16 23:09 95 20 40 12/18/16 21:13 95 22 100 Mechanical Ventilator 80.0 40 12/18/16 21:07 95 19 100 Mechanical Ventilator 80.0 40 12/18/16 21:02 96 22 40 12/18/16 20:00 40 12/18/16 20:00 99.0 91 21 107/79 100 Mechanical Ventilator 40 12/18/16 20:00 99 12/18/16 19:29 98 22 40 12/18/16 17:08 73 16 40 12/18/16 16:00 98.2 84 16 105/70 96 Mechanical Ventilator 40 12/18/16 16:00 70 12/18/16 16:00 40 Intake and Output 12/18/16 12/19/16 19:00 07:00 Intake Total 1740 ml 1033 ml Output Total 5900 ml 1275 ml Balance -4160 ml -242 ml Free Water 100 ml 100 ml IV Total 1010 ml 863 ml Tube Feeding 630 ml 70 ml Output Urine Total 5900 ml 1275 ml # Bowel Movements 2 2 Laboratory Tests Test 12/19/16 03:35 White Blood Count 10.6 K/UL (4.8-10.8) Red Blood Count 3.27 M/UL (4.70-6.10) L Hemoglobin 9.8 G/DL (14.2-18.0) L Hematocrit 29.1 % (42.0-52.0) L Mean Corpuscular Volume 89 FL (80-99) Mean Corpuscular Hemoglobin 29.9 PG (27.0-31.0) Mean Corpuscular Hemoglobin Concent 33.6 G/DL (32.0-36.0) Red Cell Distribution Width 15.6 % (11.6-14.8) H Platelet Count 360 K/UL (150-450) Mean Platelet Volume 6.4 FL (6.5-10.1) L Neutrophils (%) (Auto) 79.5 % (45.0-75.0) H Lymphocytes (%) (Auto) 12.3 % (20.0-45.0) L Monocytes (%) (Auto) 6.0 % (1.0-10.0) Eosinophils (%) (Auto) 1.2 % (0.0-3.0) Basophils (%) (Auto) 1.0 % (0.0-2.0) Sodium Level 137 mEQ/L (135-145) Potassium Level 3.8 mEQ/L (3.4-4.9) Chloride Level 98 mEQ/L (98-107) Carbon Dioxide Level 26 mEQ/L (20-30) Anion Gap 13 (5-15) Blood Urea Nitrogen 16 mg/dL (7-23) Creatinine 0.4 mg/dL (0.7-1.2) L Estimat Glomerular Filtration Rate > 60 mL/min (>60) Glucose Level 79 mg/dL (74-106) Calcium Level 8.0 mg/dL (8.6-10.2) L Total Bilirubin 0.2 mg/dL (0.0-1.2) Aspartate Amino Transf (AST/SGOT) 12 U/L (5-40) Alanine Aminotransferase (ALT/SGPT) 8 U/L (3-41) Alkaline Phosphatase 110 U/L (40-129) Total Protein 6.3 g/dL (6.6-8.7) L Albumin 1.7 g/dL (3.5-5.2) L Globulin 4.6 g/dL Albumin/Globulin Ratio 0.3 (1.0-2.7) L Objective HEAD AND NECK: Shows no JVD and tracheostomy intact. LUNGS: Have coarse rhonchi. CARDIOVASCULAR: Tachycardic S1, S2 with no gallop or murmur. ABDOMEN: Soft. EXTREMITIES: One plus edema. OSWALD HILLS Dec 19, 2016 15:37
--- NOTE | 2016-12-19 18:32 | Internal Med Progress Note ---
Subjective Date of Service: Dec 19, 2016 Physician Name TsangTadeo dockery Attending Physician Steve Rader MD Current Medications Medications (Trade) Dose Ordered Sig/Shraddha Route PRN Reason Start Time Stop Time Status Last Admin Dose Admin Acetaminophen (Tylenol) 650 mg Q4H PRN ORAL FEVER 12/12/16 19:30 01/11/17 19:29 12/13/16 21:52 Albuterol/ Ipratropium 3 ml 3 ml Q4H PRN HHN Shortness of Breath 12/17/16 22:30 12/22/16 22:29 12/19/16 10:33 Dextrose (Dextrose 50%) STAT PRN IV Hypoglycemia 12/12/16 19:30 01/11/17 19:29 Heparin Sodium (Porcine) (Heparin 5000 units/ml) 5,000 units EVERY 12 HOURS SUBQ 12/12/16 21:00 01/11/17 20:59 12/19/16 09:54 Insulin Aspart (NovoLOG) BEFORE MEALS AND HS SUBQ 12/12/16 21:00 01/11/17 20:59 12/18/16 20:53 Lorazepam (Ativan 2mg/ml 1ml) 2 mg Q2H PRN IV For Anxiety 12/12/16 19:30 12/19/16 19:29 Morphine Sulfate (Morphine Sulfate) 4 mg Q4H PRN IVP Severe Pain (Pain Scale 7-10) 12/12/16 19:30 12/19/16 19:29 Ondansetron HCl (Zofran) 4 mg Q6H PRN IVP Nausea & Vomiting 12/12/16 19:30 01/11/17 19:29 Pantoprazole (Protonix) 40 mg DAILY IV 12/13/16 09:00 01/12/17 08:59 12/19/16 09:48 Polyethylene Glycol (Miralax) 17 gm DAILYPRN PRN ORAL Constipation 12/12/16 19:30 01/11/17 19:29 Promethazine HCl/ Codeine 5 ml 5 ml Q4H PRN ORAL For Cough 12/13/16 10:30 01/12/17 10:29 12/15/16 04:29 Sodium Chloride (Sodium Chloride 1000ml bag) 1,000 ml @ 75 mls/hr [id number] IV 12/18/16 22:15 01/17/17 22:14 12/19/16 12:57 Tigecycline/ Dextrose (Tygacil/D5W) 110 ml @ 220 mls/hr EVERY 12 HOURS IVPB 12/15/16 09:00 12/22/16 08:59 12/19/16 09:48 Allergies: Coded Allergies: No Known Allergies (Unverified , 06/17/16) ROS Limited/Unobtainable: Yes Subjective 66 YO M admitted for shortness of breath and tachycardia. Intubated and sedated. JORDAN. Cover for Int Med-Dr Rader. S/P colonoscopy 12/17/16; repeat colonoscopy on 12/18/16. Objective Last Vital Signs Date Time Temp Pulse Resp B/P Pulse Ox O2 Delivery O2 Flow Rate FiO2 12/19/16 16:38 63 16 40 12/19/16 16:00 97.8 102/66 100 Mechanical Ventilator 12/19/16 01:52 80.0 Laboratory Tests Test 12/19/16 03:35 White Blood Count 10.6 K/UL (4.8-10.8) Red Blood Count 3.27 M/UL (4.70-6.10) L Hemoglobin 9.8 G/DL (14.2-18.0) L Hematocrit 29.1 % (42.0-52.0) L Mean Corpuscular Volume 89 FL (80-99) Mean Corpuscular Hemoglobin 29.9 PG (27.0-31.0) Mean Corpuscular Hemoglobin Concent 33.6 G/DL (32.0-36.0) Red Cell Distribution Width 15.6 % (11.6-14.8) H Platelet Count 360 K/UL (150-450) Mean Platelet Volume 6.4 FL (6.5-10.1) L Neutrophils (%) (Auto) 79.5 % (45.0-75.0) H Lymphocytes (%) (Auto) 12.3 % (20.0-45.0) L Monocytes (%) (Auto) 6.0 % (1.0-10.0) Eosinophils (%) (Auto) 1.2 % (0.0-3.0) Basophils (%) (Auto) 1.0 % (0.0-2.0) Sodium Level 137 mEQ/L (135-145) Potassium Level 3.8 mEQ/L (3.4-4.9) Chloride Level 98 mEQ/L (98-107) Carbon Dioxide Level 26 mEQ/L (20-30) Anion Gap 13 (5-15) Blood Urea Nitrogen 16 mg/dL (7-23) Creatinine 0.4 mg/dL (0.7-1.2) L Estimat Glomerular Filtration Rate > 60 mL/min (>60) Glucose Level 79 mg/dL (74-106) Calcium Level 8.0 mg/dL (8.6-10.2) L Total Bilirubin 0.2 mg/dL (0.0-1.2) Aspartate Amino Transf (AST/SGOT) 12 U/L (5-40) Alanine Aminotransferase (ALT/SGPT) 8 U/L (3-41) Alkaline Phosphatase 110 U/L (40-129) Total Protein 6.3 g/dL (6.6-8.7) L Albumin 1.7 g/dL (3.5-5.2) L Globulin 4.6 g/dL Albumin/Globulin Ratio 0.3 (1.0-2.7) L Intake and Output 12/18/16 12/19/16 19:00 07:00 Intake Total 1740 ml 1033 ml Output Total 5900 ml 1275 ml Balance -4160 ml -242 ml Free Water 100 ml 100 ml IV Total 1010 ml 863 ml Tube Feeding 630 ml 70 ml Output Urine Total 5900 ml 1275 ml # Bowel Movements 2 2 Objective General Appearance: lethargic, thin EENT: PERRL/EOMI, normal ENT inspection Neck: Trach; non-tender, normal alignment, supple Cardiovascular: normal peripheral pulses, regular rhythm, no gallop/murmur, no JVD, tachycardia Respiratory/Chest: Mech vent; chest wall non-tender, crackles/rales, rhonchi - bilaterally, expiratory wheezing Abdomen: normal bowel sounds, non tender, soft, no organomegaly, no mass 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 See ID note. D/C vanco and amikacin. Continue tygacil. (2) Tachycardia (3) SOB (shortness of breath) Assessment & Plan: Due to pneurmonia. (4) Hypertension (5) Acute and chronic respiratory failure Assessment & Plan: Currently on Mech vent. See pulmonary note. (6) Emphysema lung (7) Lung abscess (8) Mass of colon (9) Pneumonia Assessment & Plan: see pulmonary and ID note. (10) Mass of cecum Assessment & Plan: See surgery note. S/P Colonoscopy 12/17/16; repeat . Will require resection when stable. Status: not improved TADEO TSANG Dec 19, 2016 18:32
[2016-12-20] VITALS (7 sets, daily range): BP systolic 109–117; BP diastolic 70–85
[2016-12-20 05:27] LABS: EOSINOPHILS % (AUTO) 3.9 % (0.0-3.0); LYMPHOCYTES % (AUTO) 15.9 % (20.0-45.0); MEAN CORPUSCULAR HEMOGLOBIN 29.3 PG (27.0-31.0); MEAN CORPUSCULAR VOLUME 91 FL (80-99); MEAN PLATELET VOLUME 6.2 FL (6.5-10.1); MONOCYTES % (AUTO) 9.1 % (1.0-10.0); PLATELET COUNT 253 K/UL (150-450); RED BLOOD COUNT 2.99 M/UL (4.70-6.10); RED CELL DISTRIBUTION WIDTH 16.1 % (11.6-14.8); WHITE BLOOD COUNT 8.2 K/UL (4.8-10.8)
[2016-12-20 05:49] LABS: ANION GAP 11 (5-15); CARBON DIOXIDE 27 mEQ/L (20-30); CHLORIDE 98 mEQ/L (98-107); CREATININE 0.4 mg/dL (0.7-1.2); GLOMERULAR FILTRATION RATE > 60 mL/min (>60); HEMOLYSIS 3; MAGNESIUM 1.6 mg/dL (1.7-2.5); POTASSIUM 4.1 mEQ/L (3.4-4.9); SODIUM 136 mEQ/L (135-145)
[2016-12-20] MEDS: NovoLOG Insulin Flexpen SUBQ SCH ×4 (06:30→21:00)
[2016-12-20] MEDS: Pantoprazole Inj IV SCH (09:05)
[2016-12-20] MEDS: Heparin 5000 units/ml inj SUBQ SCH ×2 (09:06→20:59)
--- NOTE | 2016-12-20 09:27 | Pulmonology Progress Note ---
Assessment/Plan Problems: (1) Acute and chronic respiratory failure (2) Feeding by G-tube (3) Emphysema lung (4) Pleural effusion on right Assessment & Plan: s/p thoracentesis and removal of 500 cc fluid Respiratory: monitor respiratory rate, adjust FIO2, CXR Cardiac: continue to monitor HR/BP Renal: F/U I&O, keep IV fluid Infectious Disease: check cultures Gastrointestinal: continue feedings/current rate Endocrine: monitor blood sugar Hematologic: monitor H/H Neurologic: PRN Ativan Affect: PRN ativan Prophylaxis: Protonix, Heparin Subjective ROS Limited/Unobtainable: No Allergies: Coded Allergies: No Known Allergies (Unverified , 06/17/16) Objective Last 24 Hour Vital Signs Date Time Temp Pulse Resp B/P Pulse Ox O2 Delivery O2 Flow Rate FiO2 12/20/16 08:39 56 16 40 12/20/16 08:33 97.0 54 18 117/75 100 Mechanical Ventilator 12/20/16 07:15 52 16 40 12/20/16 04:46 71 16 40 12/20/16 04:00 82 12/20/16 04:00 40 12/20/16 04:00 97.0 82 19 113/77 100 Mechanical Ventilator 40 12/20/16 03:26 62 16 40 12/20/16 01:22 68 17 40 12/20/16 00:00 63 12/20/16 00:00 40 12/19/16 23:48 99.1 74 20 122/79 100 12/19/16 23:24 69 18 40 12/19/16 21:18 65 16 40 12/19/16 20:00 40 12/19/16 20:00 72 12/19/16 19:59 97.0 85 18 116/74 100 12/19/16 18:50 75 17 40 12/19/16 16:38 63 16 40 12/19/16 16:00 97.8 74 17 102/66 100 Mechanical Ventilator 40 12/19/16 16:00 40 12/19/16 16:00 78 12/19/16 14:56 69 16 40 12/19/16 12:30 86 19 40 12/19/16 12:00 97.7 86 18 103/70 100 Mechanical Ventilator 40 12/19/16 12:00 81 12/19/16 12:00 40 12/19/16 10:33 82 19 40 Intake and Output 12/19/16 12/20/16 19:00 07:00 Intake Total 750 ml 1570 ml Output Total 550 ml 900 ml Balance 200 ml 670 ml IV Total 1570 ml Tube Feeding 750 ml Output Urine Total 550 ml 900 ml # Bowel Movements 3 Objective General Appearance: cachetic Lines, tubes and drains: peripheral HEENT: normocephalic, atraumatic Neck: non-tender, normal alignment Respiratory/Chest: chest wall non-tender, lungs clear Breasts: no masses Cardiovascular/Chest: normal peripheral pulses Abdomen: normal bowel sounds, non tender Genitourinary/Rectal: normal genital exam Extremities: normal range of motion Laboratory Tests 12/20/16 03:15: White Blood Count 8.2, Red Blood Count 2.99L, Hemoglobin 8.8L, Hematocrit 27.3L , Mean Corpuscular Volume 91, Mean Corpuscular Hemoglobin 29.3, Mean Corpuscular Hemoglobin Concent 32.0, Red Cell Distribution Width 16.1H, Platelet Count 253, Mean Platelet Volume 6.2L, Neutrophils (%) (Auto) 70.0, Lymphocytes (%) (Auto) 15.9L, Monocytes (%) (Auto) 9.1, Eosinophils (%) (Auto) 3.9H, Basophils (%) (Auto) 1.0, Sodium Level 136, Potassium Level 4.1, Chloride Level 98, Carbon Dioxide Level 27, Anion Gap 11, Blood Urea Nitrogen 15, Creatinine 0.4L, Estimat Glomerular Filtration Rate > 60, Glucose Level 69L, Calcium Level 8.0L, Phosphorus Level 3.0, Magnesium Level 1.6L Current Medications Medications (Trade) Dose Ordered Sig/Shraddha Route PRN Reason Start Time Stop Time Status Last Admin Dose Admin Acetaminophen (Tylenol) 650 mg Q4H PRN ORAL FEVER 12/12/16 19:30 01/11/17 19:29 12/13/16 21:52 Albuterol/ Ipratropium 3 ml 3 ml Q4H PRN HHN Shortness of Breath 12/17/16 22:30 12/22/16 22:29 12/19/16 10:33 Dextrose (Dextrose 50%) STAT PRN IV Hypoglycemia 12/12/16 19:30 01/11/17 19:29 Heparin Sodium (Porcine) (Heparin 5000 units/ml) 5,000 units EVERY 12 HOURS SUBQ 12/12/16 21:00 01/11/17 20:59 12/20/16 09:06 Insulin Aspart (NovoLOG) BEFORE MEALS AND HS SUBQ 12/12/16 21:00 01/11/17 20:59 12/18/16 20:53 Magnesium Sulfate (Magnesium Sulfate 1gm/100ml) 100 ml @ 100 mls/hr Q1H IV 12/20/16 07:30 12/20/16 09:29 12/20/16 09:05 Ondansetron HCl (Zofran) 4 mg Q6H PRN IVP Nausea & Vomiting 12/12/16 19:30 01/11/17 19:29 Pantoprazole (Protonix) 40 mg DAILY IV 12/13/16 09:00 01/12/17 08:59 12/20/16 09:05 Polyethylene Glycol (Miralax) 17 gm DAILYPRN PRN ORAL Constipation 12/12/16 19:30 01/11/17 19:29 Promethazine HCl/ Codeine 5 ml 5 ml Q4H PRN ORAL For Cough 12/13/16 10:30 01/12/17 10:29 12/15/16 04:29 Sodium Chloride 1,000 ml @ 75 mls/hr [id number] IV 12/18/16 22:15 01/17/17 22:14 12/20/16 01:11 Tigecycline/ Dextrose (Tygacil/D5W) 110 ml @ 220 mls/hr EVERY 12 HOURS IVPB 12/15/16 09:00 12/22/16 08:59 12/19/16 20:19 REN WRIGHT Dec 20, 2016 09:27
[2016-12-20] MEDS: Tigecycline 50 MG in D5W 110 ML IVPB SCH ×2 (10:11→20:57)
--- NOTE | 2016-12-20 10:23 | GI Progress Note ---
Assessment/Plan Problems: (1) Mass of cecum ICD Codes: K63.9 - Disease of intestine, unspecified SNOMED: 406097514 (2) Severe anemia ICD Codes: D64.9 - Anemia, unspecified SNOMED: 669718887 (3) Colonic mass ICD Codes: K63.9 - Disease of intestine, unspecified SNOMED: 401998228 (4) Gastric mass ICD Codes: K31.9 - Disease of stomach and duodenum, unspecified SNOMED: 277374560 (5) LFTs abnormal ICD Codes: R79.89 - Other specified abnormal findings of blood chemistry SNOMED: 274958255 (6) DVT (deep venous thrombosis) ICD Codes: I82.409 - Acute embolism and thrombosis of unspecified deep veins of unspecified lower extremity SNOMED: 374194880 (7) ENMA (iron deficiency anemia) ICD Codes: D50.9 - Iron deficiency anemia, unspecified SNOMED: 00051262 (8) Dysphagia ICD Codes: R13.10 - Dysphagia, unspecified SNOMED: 74054767, 824490347 (9) Anemia ICD Codes: D64.9 - Anemia, unspecified SNOMED: 441710982 Status: stable Status Narrative Discussed with Dr. Quiroz. Assessment/Plan S/P COLONOSCOPY SUMMARY OF FINDINGS: 1. Cecal mass status post biopsy, see above for details. 2. 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 monitor H&H, transfuse prn GTFs ppi fu labs recommend patient for f/u colonoscopy given multiple polyps Subjective Subjective limited Objective Last 24 Hour Vital Signs Date Time Temp Pulse Resp B/P Pulse Ox O2 Delivery O2 Flow Rate FiO2 12/20/16 08:39 56 16 40 12/20/16 08:33 97.0 54 18 117/75 100 Mechanical Ventilator 12/20/16 07:15 52 16 40 12/20/16 04:46 71 16 40 12/20/16 04:00 82 12/20/16 04:00 40 12/20/16 04:00 97.0 82 19 113/77 100 Mechanical Ventilator 40 12/20/16 03:26 62 16 40 12/20/16 01:22 68 17 40 12/20/16 00:00 63 12/20/16 00:00 40 12/19/16 23:48 99.1 74 20 122/79 100 12/19/16 23:24 69 18 40 12/19/16 21:18 65 16 40 12/19/16 20:00 40 12/19/16 20:00 72 12/19/16 19:59 97.0 85 18 116/74 100 12/19/16 18:50 75 17 40 12/19/16 16:38 63 16 40 12/19/16 16:00 97.8 74 17 102/66 100 Mechanical Ventilator 40 12/19/16 16:00 40 12/19/16 16:00 78 12/19/16 14:56 69 16 40 12/19/16 12:30 86 19 40 12/19/16 12:00 97.7 86 18 103/70 100 Mechanical Ventilator 40 12/19/16 12:00 81 12/19/16 12:00 40 12/19/16 10:33 82 19 40 Intake and Output 12/19/16 12/20/16 19:00 07:00 Intake Total 750 ml 1570 ml Output Total 550 ml 900 ml Balance 200 ml 670 ml IV Total 1570 ml Tube Feeding 750 ml Output Urine Total 550 ml 900 ml # Bowel Movements 3 Laboratory Tests Test 12/20/16 03:15 White Blood Count 8.2 K/UL (4.8-10.8) Red Blood Count 2.99 M/UL (4.70-6.10) L Hemoglobin 8.8 G/DL (14.2-18.0) L Hematocrit 27.3 % (42.0-52.0) L Mean Corpuscular Volume 91 FL (80-99) Mean Corpuscular Hemoglobin 29.3 PG (27.0-31.0) Mean Corpuscular Hemoglobin Concent 32.0 G/DL (32.0-36.0) Red Cell Distribution Width 16.1 % (11.6-14.8) H Platelet Count 253 K/UL (150-450) Mean Platelet Volume 6.2 FL (6.5-10.1) L Neutrophils (%) (Auto) 70.0 % (45.0-75.0) Lymphocytes (%) (Auto) 15.9 % (20.0-45.0) L Monocytes (%) (Auto) 9.1 % (1.0-10.0) Eosinophils (%) (Auto) 3.9 % (0.0-3.0) H Basophils (%) (Auto) 1.0 % (0.0-2.0) Sodium Level 136 mEQ/L (135-145) Potassium Level 4.1 mEQ/L (3.4-4.9) Chloride Level 98 mEQ/L (98-107) Carbon Dioxide Level 27 mEQ/L (20-30) Anion Gap 11 (5-15) Blood Urea Nitrogen 15 mg/dL (7-23) Creatinine 0.4 mg/dL (0.7-1.2) L Estimat Glomerular Filtration Rate > 60 mL/min (>60) Glucose Level 69 mg/dL (74-106) L Calcium Level 8.0 mg/dL (8.6-10.2) L Phosphorus Level 3.0 mg/dL (2.5-4.8) Magnesium Level 1.6 mg/dL (1.7-2.5) L Height (Feet): 5 Height (Inches): 9.00 Weight (Pounds): 130 General Appearance: no apparent distress, alert Cardiovascular: normal rate Respiratory/Chest: no respiratory distress, other - mech vent Abdominal Exam: GT site - c/d/i Angeles Galloway N.P. Dec 20, 2016 10:23
[2016-12-20] MEDS: DuoNeb 0.5-3(2.5)mg/3ml neb HHN PRN (12:07)
--- NOTE | 2016-12-20 12:32 | General Progress Note ---
Progress Note Progress Note Afebrile. Awake and alert, abdomen is soft. We are waiting the results of recent colonoscopy to determine the extent of colectomy. He will certainly need at least a rt hemicolectomy. Josep Terrazas MD Dec 20, 2016 12:32
--- NOTE | 2016-12-20 13:13 | Cardiac Electrophysiology PN ---
Assessment/Plan Assessment/Plan 1. Sinus tachycardia due to sepsis and respiratory failure.No supraventricular tachycardia or atrial fibrillation. 2. Hypotension, resolved. 3. Severe chronic obstructive pulmonary disease and pulmonary hypertension. 4. Pneumonia, on broad-spectrum IV antibiotics. 5. Ventilator-dependent respiratory failure, status post tracheostomy. 6. Status post percutaneous endoscopic gastrostomy placement. 7. Cecal mass, status post transfusion. S/P EGD and colonoscopy and polyp removal twice. Mass seen on two prior abdominal CT scans (06/2016 and 11/2016) large and growing. Surgery awaiting pathology before planning surgical intervention (partial colectomy vs subtotal) per surgery 8. Pleural effusion, status post thoracentesis on 11/21/2016 and 12/14/16 DW RN Subjective Subjective Alert in JORDAN on vent via trach.No events reported. Objective Last 24 Hour Vital Signs Date Time Temp Pulse Resp B/P Pulse Ox O2 Delivery O2 Flow Rate FiO2 12/20/16 12:00 96.6 82 20 113/81 100 Mechanical Ventilator 40 12/20/16 12:00 40 12/20/16 11:29 67 16 40 12/20/16 08:39 56 16 40 12/20/16 08:33 97.0 54 18 117/75 100 Mechanical Ventilator 12/20/16 08:00 55 12/20/16 08:00 40 12/20/16 07:15 52 16 40 12/20/16 04:46 71 16 40 12/20/16 04:00 82 12/20/16 04:00 40 12/20/16 04:00 97.0 82 19 113/77 100 Mechanical Ventilator 40 12/20/16 03:26 62 16 40 12/20/16 01:22 68 17 40 12/20/16 00:00 63 12/20/16 00:00 40 12/19/16 23:48 99.1 74 20 122/79 100 12/19/16 23:24 69 18 40 12/19/16 21:18 65 16 40 12/19/16 20:00 40 12/19/16 20:00 72 12/19/16 19:59 97.0 85 18 116/74 100 12/19/16 18:50 75 17 40 12/19/16 16:38 63 16 40 12/19/16 16:00 97.8 74 17 102/66 100 Mechanical Ventilator 40 12/19/16 16:00 40 12/19/16 16:00 78 12/19/16 14:56 69 16 40 Intake and Output 12/19/16 12/20/16 19:00 07:00 Intake Total 750 ml 1570 ml Output Total 550 ml 900 ml Balance 200 ml 670 ml IV Total 1570 ml Tube Feeding 750 ml 0 ml Output Urine Total 550 ml 900 ml # Bowel Movements 3 Laboratory Tests Test 12/20/16 03:15 White Blood Count 8.2 K/UL (4.8-10.8) Red Blood Count 2.99 M/UL (4.70-6.10) L Hemoglobin 8.8 G/DL (14.2-18.0) L Hematocrit 27.3 % (42.0-52.0) L Mean Corpuscular Volume 91 FL (80-99) Mean Corpuscular Hemoglobin 29.3 PG (27.0-31.0) Mean Corpuscular Hemoglobin Concent 32.0 G/DL (32.0-36.0) Red Cell Distribution Width 16.1 % (11.6-14.8) H Platelet Count 253 K/UL (150-450) Mean Platelet Volume 6.2 FL (6.5-10.1) L Neutrophils (%) (Auto) 70.0 % (45.0-75.0) Lymphocytes (%) (Auto) 15.9 % (20.0-45.0) L Monocytes (%) (Auto) 9.1 % (1.0-10.0) Eosinophils (%) (Auto) 3.9 % (0.0-3.0) H Basophils (%) (Auto) 1.0 % (0.0-2.0) Sodium Level 136 mEQ/L (135-145) Potassium Level 4.1 mEQ/L (3.4-4.9) Chloride Level 98 mEQ/L (98-107) Carbon Dioxide Level 27 mEQ/L (20-30) Anion Gap 11 (5-15) Blood Urea Nitrogen 15 mg/dL (7-23) Creatinine 0.4 mg/dL (0.7-1.2) L Estimat Glomerular Filtration Rate > 60 mL/min (>60) Glucose Level 69 mg/dL (74-106) L Calcium Level 8.0 mg/dL (8.6-10.2) L Phosphorus Level 3.0 mg/dL (2.5-4.8) Magnesium Level 1.6 mg/dL (1.7-2.5) L Objective HEAD AND NECK: Shows no JVD and tracheostomy intact. LUNGS: Have coarse rhonchi. CARDIOVASCULAR: Tachycardic S1, S2 with no gallop or murmur. ABDOMEN: Soft. EXTREMITIES: One plus edema. OSWALD HILLS Dec 20, 2016 13:13
--- NOTE | 2016-12-20 16:55 | Internal Med Progress Note ---
Subjective Date of Service: Dec 20, 2016 Physician Name Tadeo Verdin Attending Physician Steve Rader MD Current Medications Medications (Trade) Dose Ordered Sig/Shraddha Route PRN Reason Start Time Stop Time Status Last Admin Dose Admin Acetaminophen (Tylenol) 650 mg Q4H PRN ORAL FEVER 12/12/16 19:30 01/11/17 19:29 12/13/16 21:52 Albuterol/ Ipratropium 3 ml 3 ml Q4H PRN HHN Shortness of Breath 12/17/16 22:30 12/22/16 22:29 12/20/16 12:07 Dextrose (Dextrose 50%) STAT PRN IV Hypoglycemia 12/12/16 19:30 01/11/17 19:29 Heparin Sodium (Porcine) (Heparin 5000 units/ml) 5,000 units EVERY 12 HOURS SUBQ 12/12/16 21:00 01/11/17 20:59 12/20/16 09:06 Insulin Aspart (NovoLOG) BEFORE MEALS AND HS SUBQ 12/12/16 21:00 01/11/17 20:59 12/18/16 20:53 Ondansetron HCl (Zofran) 4 mg Q6H PRN IVP Nausea & Vomiting 12/12/16 19:30 01/11/17 19:29 Pantoprazole (Protonix) 40 mg DAILY IV 12/13/16 09:00 01/12/17 08:59 12/20/16 09:05 Polyethylene Glycol (Miralax) 17 gm DAILYPRN PRN ORAL Constipation 12/12/16 19:30 01/11/17 19:29 Promethazine HCl/ Codeine 5 ml 5 ml Q4H PRN ORAL For Cough 12/13/16 10:30 01/12/17 10:29 12/15/16 04:29 Sodium Chloride (Sodium Chloride 1000ml bag) 1,000 ml @ 75 mls/hr [id number] IV 12/18/16 22:15 01/17/17 22:14 12/20/16 01:11 Tigecycline/ Dextrose (Tygacil/D5W) 110 ml @ 220 mls/hr EVERY 12 HOURS IVPB 12/15/16 09:00 12/22/16 08:59 12/20/16 10:11 Allergies: Coded Allergies: No Known Allergies (Unverified , 06/17/16) ROS Limited/Unobtainable: Yes Subjective 66 YO M admitted for shortness of breath and tachycardia. Intubated and sedated. JORDAN. Cover for Int Med-Dr Rader. S/P colonoscopy 12/17/16; repeat colonoscopy on 12/18/16. Objective Last Vital Signs Date Time Temp Pulse Resp B/P Pulse Ox O2 Delivery O2 Flow Rate FiO2 12/20/16 16:47 97.5 70 18 113/70 100 Mechanical Ventilator 12/20/16 16:00 40 12/19/16 01:52 80.0 Laboratory Tests Test 12/20/16 03:15 White Blood Count 8.2 K/UL (4.8-10.8) Red Blood Count 2.99 M/UL (4.70-6.10) L Hemoglobin 8.8 G/DL (14.2-18.0) L Hematocrit 27.3 % (42.0-52.0) L Mean Corpuscular Volume 91 FL (80-99) Mean Corpuscular Hemoglobin 29.3 PG (27.0-31.0) Mean Corpuscular Hemoglobin Concent 32.0 G/DL (32.0-36.0) Red Cell Distribution Width 16.1 % (11.6-14.8) H Platelet Count 253 K/UL (150-450) Mean Platelet Volume 6.2 FL (6.5-10.1) L Neutrophils (%) (Auto) 70.0 % (45.0-75.0) Lymphocytes (%) (Auto) 15.9 % (20.0-45.0) L Monocytes (%) (Auto) 9.1 % (1.0-10.0) Eosinophils (%) (Auto) 3.9 % (0.0-3.0) H Basophils (%) (Auto) 1.0 % (0.0-2.0) Sodium Level 136 mEQ/L (135-145) Potassium Level 4.1 mEQ/L (3.4-4.9) Chloride Level 98 mEQ/L (98-107) Carbon Dioxide Level 27 mEQ/L (20-30) Anion Gap 11 (5-15) Blood Urea Nitrogen 15 mg/dL (7-23) Creatinine 0.4 mg/dL (0.7-1.2) L Estimat Glomerular Filtration Rate > 60 mL/min (>60) Glucose Level 69 mg/dL (74-106) L Calcium Level 8.0 mg/dL (8.6-10.2) L Phosphorus Level 3.0 mg/dL (2.5-4.8) Magnesium Level 1.6 mg/dL (1.7-2.5) L Intake and Output 12/19/16 12/20/16 19:00 07:00 Intake Total 750 ml 1570 ml Output Total 550 ml 900 ml Balance 200 ml 670 ml IV Total 1570 ml Tube Feeding 750 ml 0 ml Output Urine Total 550 ml 900 ml # Bowel Movements 3 Objective General Appearance: lethargic, thin EENT: PERRL/EOMI, normal ENT inspection Neck: Trach; non-tender, normal alignment, supple Cardiovascular: normal peripheral pulses, regular rhythm, no gallop/murmur, no JVD, tachycardia Respiratory/Chest: Mech vent; chest wall non-tender, crackles/rales, rhonchi - bilaterally, expiratory wheezing Abdomen: normal bowel sounds, non tender, soft, no organomegaly, no mass 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 See ID note. D/C vanco and amikacin. Continue tygacil. (2) Tachycardia (3) SOB (shortness of breath) Assessment & Plan: Due to pneurmonia. (4) Hypertension (5) Acute and chronic respiratory failure Assessment & Plan: Currently on Mech vent. See pulmonary note. (6) Emphysema lung (7) Lung abscess (8) Mass of colon (9) Pneumonia Assessment & Plan: see pulmonary and ID note. (10) Mass of cecum Assessment & Plan: See surgery note. S/P Colonoscopy 12/17/16; repeat . Will require resection when stable. Status: not improved TADEO VERDIN Dec 20, 2016 16:55
--- NOTE | 2016-12-20 21:02 | Infectious Diseases Prog Note ---
Assessment/Plan Assessment/Plan ASSESSMENT: 66 y/o male with: // Probable recurrent HCAP / VAP r/o empyema - SCx : not sent - CXR 12/13: Fairly extensive infiltrate throughout the right lung persists, may be slightly worse. Left lung and pleural space remain clear - h/o MDR ACB, PSA - CT 11/14 :Extensive pneumonia involving both lungs as described above. 5-6 cm cavitary focus suspicious for lung abscess in the right upper lobe. // Recurrent pleural effusion no evid of empyema or malignancy - SP thoracentesis 12/13 - - SP thoracentesis 11/21 neg empyema // Recurrent MDR-ACB UTI - h/o yeast, VRE // Leukocytosis - SP , afebrile ( DVT, probable CA contributing ) // HIV and Hep B/C : neg // Colon mass,TV adenoma SP Colonoscopy with biopsy and snare polypectomy 12/18 CT: Large cecal mass and other polypoid colonic masses, detailed previously , again demonstrated // Acute on chronic VDRF SP trach, PEG - h/o COPD // Severe pulmonary HTN / grade I diastolic dysfunction / mod TR // Pulmonary nodules // h/o chronic RLE DVT - repeat doppler neg // Thrombocytosis // [facility] resident // MDRO colonized // NKDA // Full Code PLAN: - cont tygacil d# SP IV vancomycin, amikacin d# 2 - monitor CBC, temperatures - monitor BMP - monitor CXR - vent support, trach care, aspiration precautions Subjective Constitutional: Denies: anorexia, chills, drenching sweats, fatigue, fever, no symptoms, other Allergies: Coded Allergies: No Known Allergies (Unverified , 06/17/16) Subjective SP Colonoscopy with biopsy and snare polypectomy Objective Vital Signs Last 24 Hour Vital Signs Date Time Temp Pulse Resp B/P Pulse Ox O2 Delivery O2 Flow Rate FiO2 12/20/16 20:20 97.9 91 18 115/81 100 Room Air 12/20/16 20:00 99.5 76 17 109/71 100 Mechanical Ventilator 12/20/16 18:57 61 16 40 12/20/16 17:11 63 16 40 12/20/16 16:47 97.5 70 18 113/70 100 Mechanical Ventilator 12/20/16 16:00 78 12/20/16 16:00 40 12/20/16 15:24 80 19 40 12/20/16 13:15 59 16 40 12/20/16 12:00 96.6 82 20 113/81 100 Mechanical Ventilator 40 12/20/16 12:00 40 12/20/16 12:00 76 12/20/16 11:29 67 16 40 12/20/16 08:39 56 16 40 12/20/16 08:33 97.0 54 18 117/75 100 Mechanical Ventilator 12/20/16 08:00 55 12/20/16 08:00 40 12/20/16 07:15 52 16 40 12/20/16 04:46 71 16 40 12/20/16 04:00 82 12/20/16 04:00 40 12/20/16 04:00 97.0 82 19 113/77 100 Mechanical Ventilator 40 12/20/16 03:26 62 16 40 12/20/16 01:22 68 17 40 12/20/16 00:00 63 12/20/16 00:00 40 12/19/16 23:48 99.1 74 20 122/79 100 12/19/16 23:24 69 18 40 12/19/16 21:18 65 16 40 Height (Feet): 5 Height (Inches): 9.00 Weight (Pounds): 130 HEENT: anicteric Respiratory/Chest: no respiratory distress Cardiovascular: regularly irregular Abdomen: non distended Laboratory Tests Test 12/20/16 03:15 White Blood Count 8.2 K/UL (4.8-10.8) Red Blood Count 2.99 M/UL (4.70-6.10) L Hemoglobin 8.8 G/DL (14.2-18.0) L Hematocrit 27.3 % (42.0-52.0) L Mean Corpuscular Volume 91 FL (80-99) Mean Corpuscular Hemoglobin 29.3 PG (27.0-31.0) Mean Corpuscular Hemoglobin Concent 32.0 G/DL (32.0-36.0) Red Cell Distribution Width 16.1 % (11.6-14.8) H Platelet Count 253 K/UL (150-450) Mean Platelet Volume 6.2 FL (6.5-10.1) L Neutrophils (%) (Auto) 70.0 % (45.0-75.0) Lymphocytes (%) (Auto) 15.9 % (20.0-45.0) L Monocytes (%) (Auto) 9.1 % (1.0-10.0) Eosinophils (%) (Auto) 3.9 % (0.0-3.0) H Basophils (%) (Auto) 1.0 % (0.0-2.0) Sodium Level 136 mEQ/L (135-145) Potassium Level 4.1 mEQ/L (3.4-4.9) Chloride Level 98 mEQ/L (98-107) Carbon Dioxide Level 27 mEQ/L (20-30) Anion Gap 11 (5-15) Blood Urea Nitrogen 15 mg/dL (7-23) Creatinine 0.4 mg/dL (0.7-1.2) L Estimat Glomerular Filtration Rate > 60 mL/min (>60) Glucose Level 69 mg/dL (74-106) L Calcium Level 8.0 mg/dL (8.6-10.2) L Phosphorus Level 3.0 mg/dL (2.5-4.8) Magnesium Level 1.6 mg/dL (1.7-2.5) L Current Medications Medications (Trade) Dose Ordered Sig/Shraddha Route PRN Reason Start Time Stop Time Status Last Admin Dose Admin Acetaminophen (Tylenol) 650 mg Q4H PRN ORAL FEVER 12/12/16 19:30 01/11/17 19:29 12/20/16 20:58 Albuterol/ Ipratropium 3 ml 3 ml Q4H PRN HHN Shortness of Breath 12/17/16 22:30 12/22/16 22:29 12/20/16 12:07 Dextrose (Dextrose 50%) STAT PRN IV Hypoglycemia 12/12/16 19:30 01/11/17 19:29 Heparin Sodium (Porcine) (Heparin 5000 units/ml) 5,000 units EVERY 12 HOURS SUBQ 12/12/16 21:00 01/11/17 20:59 12/20/16 20:59 Insulin Aspart (NovoLOG) BEFORE MEALS AND HS SUBQ 12/12/16 21:00 01/11/17 20:59 12/20/16 16:55 Ondansetron HCl (Zofran) 4 mg Q6H PRN IVP Nausea & Vomiting 12/12/16 19:30 01/11/17 19:29 Pantoprazole (Protonix) 40 mg DAILY IV 12/13/16 09:00 01/12/17 08:59 12/20/16 09:05 Polyethylene Glycol (Miralax) 17 gm DAILYPRN PRN ORAL Constipation 12/12/16 19:30 01/11/17 19:29 Promethazine HCl/ Codeine 5 ml 5 ml Q4H PRN ORAL For Cough 12/13/16 10:30 01/12/17 10:29 12/15/16 04:29 Sodium Chloride (Sodium Chloride 1000ml bag) 1,000 ml @ 75 mls/hr [id number] IV 12/18/16 22:15 01/17/17 22:14 12/20/16 16:55 Tigecycline/ Dextrose (Tygacil/D5W) 110 ml @ 220 mls/hr EVERY 12 HOURS IVPB 12/15/16 09:00 12/22/16 08:59 12/20/16 20:57 KIMBERLEE HINKLE M.D. Dec 20, 2016 21:02
--- NOTE | 2016-12-21 00:09 | Wound Care Consultation ---
Wound Assessment Wound Assessment #1: Wound Present on Admission: Yes New Wound: No Status Change of Wound: No Wound Location Body Site: perineal area Wound Type: chemical burn - with erosion Wound Thickness: Partial Thickness - scattered erosion with partial thickness skin loss Wound Drainage Amount: None Wound Drainage Odor: None/Absent Tissue Surrounding Wound: Erythemic Wound General Appearance: Reddened Wound Assessment #2: Wound Number: #2 Wound Present on Admission: Yes New Wound: No Status Change of Wound: No Wound Location Body Site Modif: mid Wound Location Body Site: sacral Wound Type: pressure ulcer Nisha Test: Does not Nisha Pressure Ulcer Stage: II - scattered Wound Thickness: Partial Thickness Wound Length: 3.0 Wound Width: 2.5 Wound Depth: 0.1 Percent of Wound Newell/Red: 100 Wound Drainage Description: Serosanguineous Wound Drainage Odor: None/Absent Tissue Surrounding Wound: Erythemic Wound General Appearance: Reddened Wound Comment #1 Sacral area scattered stage II pressure ulcers good progress noted. will cont the same treatment. #2 Perineal area chemical burn with erosion. Good progress noted. No deterioration noted at this time. Recommendation -Sacral Scattered stage II pressure ulcers Cleanse with saline, pat dry, apply Triad cream, cover with bordered gauze daily and PRN soiled/dislodged -Chemical burn with erosion Cleanse with saline, pat dry, apply Triad cream, cover with bordered gauze daily and PRN soiled/dislodged -Keep clean and dry -Low air loss mattress -Turn and reposition -Optimize nutrition -Offload both heels -Assess and f/u accordingly for any changes CARRILLO HARRISON RN Dec 21, 2016 00:09
[2016-12-21 03:47] VITALS: BP 115/71
[2016-12-21] MEDS: Promethazine/Codeine 5ml UD ORAL PRN ×2 (03:57→21:57)
[2016-12-21 05:08] LABS: BASOPHILS % (AUTO) 1.1 % (0.0-2.0); EOSINOPHILS % (AUTO) 3.9 % (0.0-3.0); LYMPHOCYTES % (AUTO) 15.1 % (20.0-45.0); MEAN CORPUSCULAR HEMOGLOBIN 30.9 PG (27.0-31.0); MEAN CORPUSCULAR HGB CONC 33.7 G/DL (32.0-36.0); MEAN CORPUSCULAR VOLUME 92 FL (80-99); MEAN PLATELET VOLUME 6.1 FL (6.5-10.1); MONOCYTES % (AUTO) 6.5 % (1.0-10.0); NEUTROPHILS % (AUTO) 73.5 % (45.0-75.0); PLATELET COUNT 238 K/UL (150-450); RED BLOOD COUNT 3.15 M/UL (4.70-6.10); RED CELL DISTRIBUTION WIDTH 15.5 % (11.6-14.8); WHITE BLOOD COUNT 10.8 K/UL (4.8-10.8)
[2016-12-21 05:27] LABS: ANION GAP 11 (5-15); CALCIUM 7.7 mg/dL (8.6-10.2); CARBON DIOXIDE 27 mEQ/L (20-30); CHLORIDE 98 mEQ/L (98-107); CREATININE 0.5 mg/dL (0.7-1.2); GLOMERULAR FILTRATION RATE > 60 mL/min (>60); HEMOLYSIS 2; POTASSIUM 3.9 mEQ/L (3.4-4.9); SODIUM 136 mEQ/L (135-145)
[2016-12-21] MEDS: NovoLOG Insulin Flexpen SUBQ SCH ×4 (06:28→20:24)
[2016-12-21 08:00] VITALS: BP 127/75
[2016-12-21] MEDS: Pantoprazole Inj IV SCH (08:44)
[2016-12-21] MEDS: Tigecycline 50 MG in D5W 110 ML IVPB SCH ×2 (08:44→20:23)
[2016-12-21] MEDS: Heparin 5000 units/ml inj SUBQ SCH ×2 (08:46→20:24)
[2016-12-21] MEDS ORDERED: D5 1/2NS 1000ml IV ONE (09:17)
[2016-12-21] MEDS ORDERED: NS 275ml ONE (09:17)
[2016-12-21] MEDS ORDERED: Tubing IV Secondary IV ONE (09:17)
[2016-12-21] MEDS: DuoNeb 0.5-3(2.5)mg/3ml neb HHN PRN ×3 (09:52→19:03)
[2016-12-21 12:00] VITALS: BP 114/72
--- NOTE | 2016-12-21 13:49 | Internal Med Progress Note ---
Subjective Date of Service: Dec 21, 2016 Physician Name Tadeo Verdin Attending Physician Steve Rader MD Current Medications Medications (Trade) Dose Ordered Sig/Shraddha Route PRN Reason Start Time Stop Time Status Last Admin Dose Admin Acetaminophen (Tylenol) 650 mg Q4H PRN ORAL FEVER 12/12/16 19:30 01/11/17 19:29 12/21/16 02:34 Albuterol/ Ipratropium 3 ml 3 ml Q4H PRN HHN Shortness of Breath 12/17/16 22:30 12/22/16 22:29 12/21/16 09:52 Dextrose (Dextrose 50%) STAT PRN IV Hypoglycemia 12/12/16 19:30 01/11/17 19:29 Heparin Sodium (Porcine) (Heparin 5000 units/ml) 5,000 units EVERY 12 HOURS SUBQ 12/12/16 21:00 01/11/17 20:59 12/21/16 08:46 Insulin Aspart (NovoLOG) BEFORE MEALS AND HS SUBQ 12/12/16 21:00 01/11/17 20:59 12/20/16 16:55 Ondansetron HCl (Zofran) 4 mg Q6H PRN IVP Nausea & Vomiting 12/12/16 19:30 01/11/17 19:29 Pantoprazole (Protonix) 40 mg DAILY IV 12/13/16 09:00 01/12/17 08:59 12/21/16 08:44 Polyethylene Glycol (Miralax) 17 gm DAILYPRN PRN ORAL Constipation 12/12/16 19:30 01/11/17 19:29 Promethazine HCl/ Codeine 5 ml 5 ml Q4H PRN ORAL For Cough 12/13/16 10:30 01/12/17 10:29 12/21/16 03:57 Sodium Chloride (Sodium Chloride 1000ml bag) 1,000 ml @ 75 mls/hr [id number] IV 12/18/16 22:15 01/17/17 22:14 12/21/16 03:38 Tigecycline/ Dextrose (Tygacil/D5W) 110 ml @ 220 mls/hr EVERY 12 HOURS IVPB 12/15/16 09:00 12/22/16 08:59 12/21/16 08:44 Allergies: Coded Allergies: No Known Allergies (Unverified , 06/17/16) ROS Limited/Unobtainable: Yes Subjective 66 YO M admitted for shortness of breath and tachycardia. Intubated and sedated. JORDAN. Cover for Int Wilder-Dr Rader. Objective Last Vital Signs Date Time Temp Pulse Resp B/P Pulse Ox O2 Delivery O2 Flow Rate FiO2 12/21/16 12:50 63 18 40 12/21/16 12:00 97.5 114/72 100 Mechanical Ventilator 12/19/16 01:52 80.0 Laboratory Tests Test 12/21/16 03:30 White Blood Count 10.8 K/UL (4.8-10.8) Red Blood Count 3.15 M/UL (4.70-6.10) L Hemoglobin 9.7 G/DL (14.2-18.0) L Hematocrit 28.8 % (42.0-52.0) L Mean Corpuscular Volume 92 FL (80-99) Mean Corpuscular Hemoglobin 30.9 PG (27.0-31.0) Mean Corpuscular Hemoglobin Concent 33.7 G/DL (32.0-36.0) Red Cell Distribution Width 15.5 % (11.6-14.8) H Platelet Count 238 K/UL (150-450) Mean Platelet Volume 6.1 FL (6.5-10.1) L Neutrophils (%) (Auto) 73.5 % (45.0-75.0) Lymphocytes (%) (Auto) 15.1 % (20.0-45.0) L Monocytes (%) (Auto) 6.5 % (1.0-10.0) Eosinophils (%) (Auto) 3.9 % (0.0-3.0) H Basophils (%) (Auto) 1.1 % (0.0-2.0) Sodium Level 136 mEQ/L (135-145) Potassium Level 3.9 mEQ/L (3.4-4.9) Chloride Level 98 mEQ/L (98-107) Carbon Dioxide Level 27 mEQ/L (20-30) Anion Gap 11 (5-15) Blood Urea Nitrogen 16 mg/dL (7-23) Creatinine 0.5 mg/dL (0.7-1.2) L Estimat Glomerular Filtration Rate > 60 mL/min (>60) Glucose Level 107 mg/dL (74-106) H Calcium Level 7.7 mg/dL (8.6-10.2) L Magnesium Level 2.0 mg/dL (1.7-2.5) Intake and Output 12/20/16 12/21/16 19:00 07:00 Intake Total 2255 ml 1183.5 ml Output Total 1800 ml 1050 ml Balance 455 ml 133.5 ml Intake Oral 120 ml Free Water 200 ml 100 ml IV Total 935 ml 1083.5 ml Tube Feeding 700 ml Other 300 ml Output Urine Total 1800 ml 1050 ml # Voids 1 # Bowel Movements 1 Objective General Appearance: lethargic, thin EENT: PERRL/EOMI, normal ENT inspection Neck: Trach; non-tender, normal alignment, supple Cardiovascular: normal peripheral pulses, regular rhythm, no gallop/murmur, no JVD, tachycardia Respiratory/Chest: Mech vent; chest wall non-tender, crackles/rales, rhonchi - bilaterally, expiratory wheezing Abdomen: normal bowel sounds, non tender, soft, no organomegaly, no mass Neurologic: 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 See ID note. D/C vanco and amikacin. Continue tygacil. (2) Tachycardia (3) SOB (shortness of breath) Assessment & Plan: Due to pneurmonia. (4) Hypertension (5) Acute and chronic respiratory failure Assessment & Plan: Currently on Mech vent. See pulmonary note. (6) Emphysema lung (7) Lung abscess (8) Mass of colon (9) Pneumonia Assessment & Plan: see pulmonary and ID note. (10) Mass of cecum Assessment & Plan: See surgery note. S/P Colonoscopy 12/17/16; repeat . Will require resection when stable. Status: not improved TADEO VERDIN Dec 21, 2016 13:49
--- NOTE | 2016-12-21 14:04 | General Surgery Progress Note ---
General Surgery-Progress Note Subjective Symptoms: pain absent Additional Comments patient seen and examined at bedside. no acute events. doing well. no complaints. resting comfortable with trach. Objective Last 24 Hour Vital Signs Date Time Temp Pulse Resp B/P Pulse Ox O2 Delivery O2 Flow Rate FiO2 12/21/16 12:50 63 18 40 12/21/16 12:00 40 12/21/16 12:00 63 12/21/16 12:00 97.5 65 16 114/72 100 Mechanical Ventilator 40 12/21/16 11:26 80 19 40 12/21/16 09:53 69 16 100 Mechanical Ventilator 40 12/21/16 09:40 64 16 100 Mechanical Ventilator 40 12/21/16 09:21 82 19 40 12/21/16 08:00 63 12/21/16 08:00 40 12/21/16 08:00 97.2 60 16 127/75 100 Mechanical Ventilator 40 12/21/16 06:47 82 19 40 12/21/16 04:51 71 18 40 12/21/16 04:00 40 12/21/16 04:00 73 12/21/16 03:47 98.1 60 17 115/71 100 Room Air 12/21/16 03:02 58 16 40 12/21/16 00:55 71 19 40 12/21/16 00:00 67 12/21/16 00:00 40 12/20/16 23:45 98.4 72 16 112/85 100 Room Air 12/20/16 23:36 72 16 40 12/20/16 21:26 75 17 40 12/20/16 21:00 40 12/20/16 20:20 97.9 91 18 115/81 100 Room Air 12/20/16 20:00 83 12/20/16 20:00 99.5 76 17 109/71 100 Mechanical Ventilator 12/20/16 18:57 61 16 40 12/20/16 17:11 63 16 40 12/20/16 16:47 97.5 70 18 113/70 100 Mechanical Ventilator 12/20/16 16:00 78 12/20/16 16:00 40 12/20/16 15:24 80 19 40 I&O Intake and Output 12/20/16 12/21/16 19:00 07:00 Intake Total 2255 ml 1183.5 ml Output Total 1800 ml 1050 ml Balance 455 ml 133.5 ml Intake Oral 120 ml Free Water 200 ml 100 ml IV Total 935 ml 1083.5 ml Tube Feeding 700 ml Other 300 ml Output Urine Total 1800 ml 1050 ml # Voids 1 # Bowel Movements 1 Cardiovascular: RSR Respiratory: clear Abdomen: soft, non-tender, present bowel sounds Extremities: no edema, no tenderness, no cyanosis Laboratory Tests Test 12/21/16 03:30 White Blood Count 10.8 K/UL (4.8-10.8) Red Blood Count 3.15 M/UL (4.70-6.10) L Hemoglobin 9.7 G/DL (14.2-18.0) L Hematocrit 28.8 % (42.0-52.0) L Mean Corpuscular Volume 92 FL (80-99) Mean Corpuscular Hemoglobin 30.9 PG (27.0-31.0) Mean Corpuscular Hemoglobin Concent 33.7 G/DL (32.0-36.0) Red Cell Distribution Width 15.5 % (11.6-14.8) H Platelet Count 238 K/UL (150-450) Mean Platelet Volume 6.1 FL (6.5-10.1) L Neutrophils (%) (Auto) 73.5 % (45.0-75.0) Lymphocytes (%) (Auto) 15.1 % (20.0-45.0) L Monocytes (%) (Auto) 6.5 % (1.0-10.0) Eosinophils (%) (Auto) 3.9 % (0.0-3.0) H Basophils (%) (Auto) 1.1 % (0.0-2.0) Sodium Level 136 mEQ/L (135-145) Potassium Level 3.9 mEQ/L (3.4-4.9) Chloride Level 98 mEQ/L (98-107) Carbon Dioxide Level 27 mEQ/L (20-30) Anion Gap 11 (5-15) Blood Urea Nitrogen 16 mg/dL (7-23) Creatinine 0.5 mg/dL (0.7-1.2) L Estimat Glomerular Filtration Rate > 60 mL/min (>60) Glucose Level 107 mg/dL (74-106) H Calcium Level 7.7 mg/dL (8.6-10.2) L Magnesium Level 2.0 mg/dL (1.7-2.5) Plan Problems: (1) Mass of colon Assessment & Plan: 66M large colonic mass and multiple colonic polyps. Recent colonoscopy(s) performed and biopsy of mass taken as well as multiple other polyps. 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 Mass seen on two prior abdominal CT scans (06/2016 and 11/2016); large and growing. has high grade dysplasia on path. Discussed findings with patient. He would like surgical intervention. Discussed risks, benefits, and alternatives to surgical intervention with patient. He expressed understanding and desire to proceed. Will try and schedule for surgery this week. 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 Can monitor remaining polyps with colonoscopy guidelines specify. once date and time for surgery confirmed will make npo. Landon Farfan Dec 21, 2016 14:04
[2016-12-21 16:00] VITALS: BP 101/69
--- NOTE | 2016-12-21 16:25 | Pulmonology Progress Note ---
Assessment/Plan Assessment/Plan ASSESSMENT acute on chronic respiratory failrue sepsis VDRF, trach status probably recurrent PNA- HCAP/VAP recurrent UTI with Acinetobacter recurrent pleural effusion, s/p tap anemia elevated CEA s/p blood transfusion large colonic mass sacral decub st 3 POA s/p colonoscopy with biopsy COPD HTN DM dysphagia G tube hx of DVT PLAN OF CARE JORDAN gentle IVF vent /trach care pulmonary toilet baseline ABG and titrate settings as needed s/p tap of large R pleural effusion with 500 cc yielded pathology of pleural fluid cells negative recent CXR with starting reaccumulation of R pleural effusion fup with CXR on Friday GI and surgery follow, s/p colonoscopy pathology of cecum tumor - high grade dysplasia on superficial biopsy. cannot exclude malignancy deep in tumor remaining polyps - tubular adenoma no high grade dysplasia surgery planned for next week, was waiting for result of pathology to plan extent of surgery, patietn agreeable to surgery strict aspiration precautions GT feeding failed swallow eval , keep NPO and continue TF monitor HH, at baseline, s/p blood transfusion BS management with SS of insulin remains normotensive, no need for anti HTN medications at this time Venous Duplex BLE negative DVT, GI prophylaxis wound care as per wound nurse recommendations case discussed and evaluated by supervising physician Subjective Allergies: Coded Allergies: No Known Allergies (Unverified , 06/17/16) Subjective afebrile, no leukocytosis no signs of respiratory distress on current settings Objective Last 24 Hour Vital Signs Date Time Temp Pulse Resp B/P Pulse Ox O2 Delivery O2 Flow Rate FiO2 12/21/16 15:03 76 16 40 12/21/16 14:28 76 19 100 Mechanical Ventilator 40 12/21/16 14:18 81 19 100 Mechanical Ventilator 40 12/21/16 12:50 63 18 40 12/21/16 12:00 40 12/21/16 12:00 63 12/21/16 12:00 97.5 65 16 114/72 100 Mechanical Ventilator 40 12/21/16 11:26 80 19 40 12/21/16 09:53 69 16 100 Mechanical Ventilator 40 12/21/16 09:40 64 16 100 Mechanical Ventilator 40 12/21/16 09:21 82 19 40 12/21/16 08:00 63 12/21/16 08:00 40 12/21/16 08:00 97.2 60 16 127/75 100 Mechanical Ventilator 40 12/21/16 06:47 82 19 40 12/21/16 04:51 71 18 40 12/21/16 04:00 40 12/21/16 04:00 73 12/21/16 03:47 98.1 60 17 115/71 100 Room Air 12/21/16 03:02 58 16 40 12/21/16 00:55 71 19 40 12/21/16 00:00 67 12/21/16 00:00 40 12/20/16 23:45 98.4 72 16 112/85 100 Room Air 12/20/16 23:36 72 16 40 12/20/16 21:26 75 17 40 12/20/16 21:00 40 12/20/16 20:20 97.9 91 18 115/81 100 Room Air 12/20/16 20:00 83 12/20/16 20:00 99.5 76 17 109/71 100 Mechanical Ventilator 12/20/16 18:57 61 16 40 12/20/16 17:11 63 16 40 12/20/16 16:47 97.5 70 18 113/70 100 Mechanical Ventilator Intake and Output 12/20/16 12/21/16 19:00 07:00 Intake Total 2255 ml 1183.5 ml Output Total 1800 ml 1050 ml Balance 455 ml 133.5 ml Intake Oral 120 ml Free Water 200 ml 100 ml IV Total 935 ml 1083.5 ml Tube Feeding 700 ml Other 300 ml Output Urine Total 1800 ml 1050 ml # Voids 1 # Bowel Movements 1 General Appearance: no acute distress, cachetic, other - awake, responsive, bedriden, vent dependent AA male Vent AC 600-40%-16 HEENT: normocephalic, atraumatic, anicteric, status post trach - Shiley #8, secretions moderate, yellow, thin Respiratory/Chest: lungs clear, no respiratory distress, no accessory muscle use, rhonchi Cardiovascular: normal rate, regular rhythm, no JVD Abdomen: normal bowel sounds, soft, non tender, other - G tube Extremities: no edema Skin: other - sacral st 3 POA Neurologic/Psychiatric: abnormal gait, alert, responsive Laboratory Tests 12/21/16 03:30: White Blood Count 10.8, Red Blood Count 3.15L, Hemoglobin 9.7L, Hematocrit 28.8L , Mean Corpuscular Volume 92, Mean Corpuscular Hemoglobin 30.9, Mean Corpuscular Hemoglobin Concent 33.7, Red Cell Distribution Width 15.5H, Platelet Count 238, Mean Platelet Volume 6.1L, Neutrophils (%) (Auto) 73.5, Lymphocytes (%) (Auto) 15.1L, Monocytes (%) (Auto) 6.5, Eosinophils (%) (Auto) 3.9H, Basophils (%) (Auto) 1.1, Sodium Level 136, Potassium Level 3.9, Chloride Level 98, Carbon Dioxide Level 27, Anion Gap 11, Blood Urea Nitrogen 16, Creatinine 0.5L, Estimat Glomerular Filtration Rate > 60, Glucose Level 107H, Calcium Level 7.7L, Magnesium Level 2.0 Current Medications Medications (Trade) Dose Ordered Sig/Shraddha Route PRN Reason Start Time Stop Time Status Last Admin Dose Admin Acetaminophen (Tylenol) 650 mg Q4H PRN ORAL FEVER 12/12/16 19:30 01/11/17 19:29 12/21/16 02:34 Albuterol/ Ipratropium 3 ml 3 ml Q4H PRN HHN Shortness of Breath 12/17/16 22:30 12/22/16 22:29 12/21/16 14:27 Dextrose (Dextrose 50%) STAT PRN IV Hypoglycemia 12/12/16 19:30 01/11/17 19:29 Heparin Sodium (Porcine) (Heparin 5000 units/ml) 5,000 units EVERY 12 HOURS SUBQ 12/12/16 21:00 01/11/17 20:59 12/21/16 08:46 Insulin Aspart (NovoLOG) BEFORE MEALS AND HS SUBQ 12/12/16 21:00 01/11/17 20:59 12/20/16 16:55 Ondansetron HCl (Zofran) 4 mg Q6H PRN IVP Nausea & Vomiting 12/12/16 19:30 01/11/17 19:29 Pantoprazole (Protonix) 40 mg DAILY IV 12/13/16 09:00 01/12/17 08:59 12/21/16 08:44 Polyethylene Glycol (Miralax) 17 gm DAILYPRN PRN ORAL Constipation 12/12/16 19:30 01/11/17 19:29 Promethazine HCl/ Codeine 5 ml 5 ml Q4H PRN ORAL For Cough 12/13/16 10:30 01/12/17 10:29 12/21/16 03:57 Sodium Chloride (Sodium Chloride 1000ml bag) 1,000 ml @ 75 mls/hr [id number] IV 12/18/16 22:15 01/17/17 22:14 12/21/16 03:38 Tigecycline/ Dextrose (Tygacil/D5W) 110 ml @ 220 mls/hr EVERY 12 HOURS IVPB 12/15/16 09:00 12/22/16 08:59 12/21/16 08:44 Hua (Jeremiah)Katia NP Dec 21, 2016 16:25
--- NOTE | 2016-12-21 17:38 | Cardiac Electrophysiology PN ---
Assessment/Plan Assessment/Plan 1. Sinus tachycardia due to sepsis and respiratory failure.No supraventricular tachycardia or atrial fibrillation. 2. Hypotension, resolved. 3. Severe chronic obstructive pulmonary disease and pulmonary hypertension. 4. Pneumonia, on IV antibiotics. 5. Ventilator-dependent respiratory failure, status post tracheostomy on vent 6. Status post percutaneous endoscopic gastrostomy placement. 7. Cecal mass, status post transfusion. S/P EGD and colonoscopy and polyp removal twice. Mass seen on two prior abdominal CT scans (06/2016 and 11/2016) large and growing. Surgery awaiting pathology before planning surgical intervention (partial colectomy vs subtotal) per surgery 8. Pleural effusion, status post thoracentesis on 11/21/2016 and 12/14/16 DW RN Subjective Subjective Alert in JORDAN on vent via trach.No significant change or arrhythmias.. Objective Last 24 Hour Vital Signs Date Time Temp Pulse Resp B/P Pulse Ox O2 Delivery O2 Flow Rate FiO2 12/21/16 16:00 74 12/21/16 16:00 40 12/21/16 16:00 97.9 69 16 101/69 97 Mechanical Ventilator 40 12/21/16 15:03 76 16 40 12/21/16 14:28 76 19 100 Mechanical Ventilator 40 12/21/16 14:18 81 19 100 Mechanical Ventilator 40 12/21/16 12:50 63 18 40 12/21/16 12:00 40 12/21/16 12:00 63 12/21/16 12:00 97.5 65 16 114/72 100 Mechanical Ventilator 40 12/21/16 11:26 80 19 40 12/21/16 09:53 69 16 100 Mechanical Ventilator 40 12/21/16 09:40 64 16 100 Mechanical Ventilator 40 12/21/16 09:21 82 19 40 12/21/16 08:00 63 12/21/16 08:00 40 12/21/16 08:00 97.2 60 16 127/75 100 Mechanical Ventilator 40 12/21/16 06:47 82 19 40 12/21/16 04:51 71 18 40 12/21/16 04:00 40 12/21/16 04:00 73 12/21/16 03:47 98.1 60 17 115/71 100 Room Air 12/21/16 03:02 58 16 40 12/21/16 00:55 71 19 40 12/21/16 00:00 67 12/21/16 00:00 40 12/20/16 23:45 98.4 72 16 112/85 100 Room Air 12/20/16 23:36 72 16 40 12/20/16 21:26 75 17 40 12/20/16 21:00 40 12/20/16 20:20 97.9 91 18 115/81 100 Room Air 12/20/16 20:00 83 12/20/16 20:00 99.5 76 17 109/71 100 Mechanical Ventilator 12/20/16 18:57 61 16 40 Intake and Output 12/20/16 12/21/16 19:00 07:00 Intake Total 2255 ml 1183.5 ml Output Total 1800 ml 1050 ml Balance 455 ml 133.5 ml Intake Oral 120 ml Free Water 200 ml 100 ml IV Total 935 ml 1083.5 ml Tube Feeding 700 ml Other 300 ml Output Urine Total 1800 ml 1050 ml # Voids 1 # Bowel Movements 1 Laboratory Tests Test 12/21/16 03:30 White Blood Count 10.8 K/UL (4.8-10.8) Red Blood Count 3.15 M/UL (4.70-6.10) L Hemoglobin 9.7 G/DL (14.2-18.0) L Hematocrit 28.8 % (42.0-52.0) L Mean Corpuscular Volume 92 FL (80-99) Mean Corpuscular Hemoglobin 30.9 PG (27.0-31.0) Mean Corpuscular Hemoglobin Concent 33.7 G/DL (32.0-36.0) Red Cell Distribution Width 15.5 % (11.6-14.8) H Platelet Count 238 K/UL (150-450) Mean Platelet Volume 6.1 FL (6.5-10.1) L Neutrophils (%) (Auto) 73.5 % (45.0-75.0) Lymphocytes (%) (Auto) 15.1 % (20.0-45.0) L Monocytes (%) (Auto) 6.5 % (1.0-10.0) Eosinophils (%) (Auto) 3.9 % (0.0-3.0) H Basophils (%) (Auto) 1.1 % (0.0-2.0) Sodium Level 136 mEQ/L (135-145) Potassium Level 3.9 mEQ/L (3.4-4.9) Chloride Level 98 mEQ/L (98-107) Carbon Dioxide Level 27 mEQ/L (20-30) Anion Gap 11 (5-15) Blood Urea Nitrogen 16 mg/dL (7-23) Creatinine 0.5 mg/dL (0.7-1.2) L Estimat Glomerular Filtration Rate > 60 mL/min (>60) Glucose Level 107 mg/dL (74-106) H Calcium Level 7.7 mg/dL (8.6-10.2) L Magnesium Level 2.0 mg/dL (1.7-2.5) Objective HEAD AND NECK: No JVD .tracheostomy intact. LUNGS: Have coarse rhonchi. CARDIOVASCULAR: Tachycardic S1, S2 with no gallop or murmur. ABDOMEN: Soft. EXTREMITIES: One plus edema. OSWALD HILLS Dec 21, 2016 17:38
--- NOTE | 2016-12-21 19:28 | Infectious Diseases Prog Note ---
Assessment/Plan Assessment/Plan ASSESSMENT: 66 y/o male with: // Probable recurrent HCAP / VAP r/o empyema - SCx : not sent - CXR 12/13: Fairly extensive infiltrate throughout the right lung persists, may be slightly worse. Left lung and pleural space remain clear - h/o MDR ACB, PSA - CT 11/14 :Extensive pneumonia involving both lungs as described above. 5-6 cm cavitary focus suspicious for lung abscess in the right upper lobe. // Recurrent pleural effusion no evid of empyema or malignancy - SP thoracentesis 12/13 - - SP thoracentesis 11/21 neg empyema // Recurrent MDR-ACB UTI - h/o yeast, VRE // Leukocytosis - SP , afebrile ( DVT, probable CA contributing ) // HIV and Hep B/C : neg // Colon mass,TV adenoma SP Colonoscopy with biopsy and snare polypectomy 12/18 CT: Large cecal mass and other polypoid colonic masses, detailed previously , again demonstrated // Acute on chronic VDRF SP trach, PEG - h/o COPD // Severe pulmonary HTN / grade I diastolic dysfunction / mod TR // Pulmonary nodules // h/o chronic RLE DVT - repeat doppler neg // Thrombocytosis // [place] resident // MDRO colonized // NKDA // Full Code PLAN: - cont tygacil d# 7 / 10 SP IV vancomycin, amikacin d# 2 - monitor CBC, temperatures - monitor BMP - monitor CXR - vent support, trach care, aspiration precautions - as per GenSx: need excision of colon mass Subjective Allergies: Coded Allergies: No Known Allergies (Unverified , 06/17/16) Subjective no new complain Objective Vital Signs Last 24 Hour Vital Signs Date Time Temp Pulse Resp B/P Pulse Ox O2 Delivery O2 Flow Rate FiO2 12/21/16 19:22 84 20 100 Mechanical Ventilator 40 12/21/16 19:03 87 20 100 Mechanical Ventilator 40 12/21/16 19:02 83 20 40 12/21/16 17:30 76 16 40 12/21/16 16:00 74 12/21/16 16:00 40 12/21/16 16:00 97.9 69 16 101/69 97 Mechanical Ventilator 40 12/21/16 15:03 76 16 40 12/21/16 14:28 76 19 100 Mechanical Ventilator 40 12/21/16 14:18 81 19 100 Mechanical Ventilator 40 12/21/16 12:50 63 18 40 12/21/16 12:00 40 12/21/16 12:00 63 12/21/16 12:00 97.5 65 16 114/72 100 Mechanical Ventilator 40 12/21/16 11:26 80 19 40 12/21/16 09:53 69 16 100 Mechanical Ventilator 40 12/21/16 09:40 64 16 100 Mechanical Ventilator 40 12/21/16 09:21 82 19 40 12/21/16 08:00 63 12/21/16 08:00 40 12/21/16 08:00 97.2 60 16 127/75 100 Mechanical Ventilator 40 12/21/16 06:47 82 19 40 12/21/16 04:51 71 18 40 12/21/16 04:00 40 12/21/16 04:00 73 12/21/16 03:47 98.1 60 17 115/71 100 Mechanical Ventilator 12/21/16 03:02 58 16 40 12/21/16 00:55 71 19 40 12/21/16 00:00 67 12/21/16 00:00 40 12/20/16 23:45 98.4 72 16 112/85 100 Mechanical Ventilator 12/20/16 23:36 72 16 40 12/20/16 21:26 75 17 40 12/20/16 21:00 40 12/20/16 20:20 97.9 91 18 115/81 100 Room Air 12/20/16 20:00 83 12/20/16 20:00 99.5 76 17 109/71 100 Mechanical Ventilator Height (Feet): 5 Height (Inches): 9.00 Weight (Pounds): 130 HEENT: anicteric Respiratory/Chest: normal breath sounds Cardiovascular: regular rhythm Abdomen: soft, non tender Laboratory Tests Test 12/21/16 03:30 White Blood Count 10.8 K/UL (4.8-10.8) Red Blood Count 3.15 M/UL (4.70-6.10) L Hemoglobin 9.7 G/DL (14.2-18.0) L Hematocrit 28.8 % (42.0-52.0) L Mean Corpuscular Volume 92 FL (80-99) Mean Corpuscular Hemoglobin 30.9 PG (27.0-31.0) Mean Corpuscular Hemoglobin Concent 33.7 G/DL (32.0-36.0) Red Cell Distribution Width 15.5 % (11.6-14.8) H Platelet Count 238 K/UL (150-450) Mean Platelet Volume 6.1 FL (6.5-10.1) L Neutrophils (%) (Auto) 73.5 % (45.0-75.0) Lymphocytes (%) (Auto) 15.1 % (20.0-45.0) L Monocytes (%) (Auto) 6.5 % (1.0-10.0) Eosinophils (%) (Auto) 3.9 % (0.0-3.0) H Basophils (%) (Auto) 1.1 % (0.0-2.0) Sodium Level 136 mEQ/L (135-145) Potassium Level 3.9 mEQ/L (3.4-4.9) Chloride Level 98 mEQ/L (98-107) Carbon Dioxide Level 27 mEQ/L (20-30) Anion Gap 11 (5-15) Blood Urea Nitrogen 16 mg/dL (7-23) Creatinine 0.5 mg/dL (0.7-1.2) L Estimat Glomerular Filtration Rate > 60 mL/min (>60) Glucose Level 107 mg/dL (74-106) H Calcium Level 7.7 mg/dL (8.6-10.2) L Magnesium Level 2.0 mg/dL (1.7-2.5) Current Medications Medications (Trade) Dose Ordered Sig/Shraddha Route PRN Reason Start Time Stop Time Status Last Admin Dose Admin Acetaminophen (Tylenol) 650 mg Q4H PRN ORAL FEVER 12/12/16 19:30 01/11/17 19:29 12/21/16 02:34 Albuterol/ Ipratropium (DuoNeb 0.5-3(2.5)mg/3ml) 3 ml Q4H PRN HHN Shortness of Breath 12/21/16 18:00 12/26/16 17:59 12/21/16 19:03 Dextrose (Dextrose 50%) STAT PRN IV Hypoglycemia 12/12/16 19:30 01/11/17 19:29 Heparin Sodium (Porcine) (Heparin 5000 units/ml) 5,000 units EVERY 12 HOURS SUBQ 12/12/16 21:00 7/8/17 20:59 12/21/16 08:46 Insulin Aspart (NovoLOG) BEFORE MEALS AND HS SUBQ 12/12/16 21:00 01/11/17 20:59 12/20/16 16:55 Ondansetron HCl (Zofran) 4 mg Q6H PRN IVP Nausea & Vomiting 12/12/16 19:30 01/11/17 19:29 Pantoprazole (Protonix) 40 mg DAILY IV 12/13/16 09:00 01/12/17 08:59 12/21/16 08:44 Polyethylene Glycol (Miralax) 17 gm DAILYPRN PRN ORAL Constipation 12/12/16 19:30 01/11/17 19:29 Promethazine HCl/ Codeine 5 ml 5 ml Q4H PRN ORAL For Cough 12/13/16 10:30 01/12/17 10:29 12/21/16 03:57 Sodium Chloride (Sodium Chloride 1000ml bag) 1,000 ml @ 75 mls/hr [id number] IV 12/18/16 22:15 01/17/17 22:14 12/21/16 16:56 Tigecycline 50 mg/ Dextrose 110 ml @ 220 mls/hr EVERY 12 HOURS IVPB 12/15/16 09:00 12/22/16 08:59 12/21/16 08:44 KIMBERLEE HINKLE M.D. Dec 21, 2016 19:28
[2016-12-21 19:33] VITALS: BP 100/69
[2016-12-21 23:27] VITALS: BP 113/82
[2016-12-22] MEDS: Promethazine/Codeine 5ml UD ORAL PRN (02:44)
[2016-12-22] MEDS: DuoNeb 0.5-3(2.5)mg/3ml neb HHN PRN ×5 (02:59→20:37)
[2016-12-22 03:44] VITALS: BP 118/78
[2016-12-22 05:17] LABS: BASOPHILS % (AUTO) 1.2 % (0.0-2.0); EOSINOPHILS % (AUTO) 2.6 % (0.0-3.0); MEAN CORPUSCULAR HEMOGLOBIN 29.8 PG (27.0-31.0); MEAN CORPUSCULAR HGB CONC 32.5 G/DL (32.0-36.0); MEAN CORPUSCULAR VOLUME 91 FL (80-99); MEAN PLATELET VOLUME 6.3 FL (6.5-10.1); MONOCYTES % (AUTO) 6.3 % (1.0-10.0); NEUTROPHILS % (AUTO) 73.9 % (45.0-75.0); PLATELET COUNT 235 K/UL (150-450); RED BLOOD COUNT 3.28 M/UL (4.70-6.10); RED CELL DISTRIBUTION WIDTH 15.8 % (11.6-14.8)
[2016-12-22 05:21] LABS: ANION GAP 10 (5-15); CALCIUM 8.1 mg/dL (8.6-10.2); CARBON DIOXIDE 28 mEQ/L (20-30); CHLORIDE 97 mEQ/L (98-107); CREATININE 0.4 mg/dL (0.7-1.2); GLOMERULAR FILTRATION RATE > 60 mL/min (>60); HEMOLYSIS 2; POTASSIUM 4.5 mEQ/L (3.4-4.9); SODIUM 135 mEQ/L (135-145)
[2016-12-22] MEDS: NovoLOG Insulin Flexpen SUBQ SCH ×4 (06:14→21:00)
--- NOTE | 2016-12-22 07:33 | Pulmonology Progress Note ---
Assessment/Plan Assessment/Plan ASSESSMENT acute on chronic respiratory failrue sepsis VDRF, trach status probably recurrent PNA- HCAP/VAP recurrent UTI with Acinetobacter recurrent pleural effusion, s/p tap sinus tachycardia due to sepsis and respiratory failure.No supraventricular tachycardia or atrial fibrillation. anemia elevated CEA s/p blood transfusion large colonic mass sacral decub st 3 POA s/p colonoscopy with biopsy COPD HTN DM dysphagia G tube hx of DVT PLAN OF CARE JORDAN gentle IVF vent /trach care pulmonary toilet baseline ABG and titrate settings as needed s/p tap of large R pleural effusion with 500 cc yielded pathology of pleural fluid cells negative recent CXR with starting reaccumulation of R pleural effusion fup with CXR on Friday ST resolved cardio follows per cardio ST was due to sepsis and RF, no SVT or A fib on monitor GI and surgery follow, s/p colonoscopy pathology of cecum tumor - high grade dysplasia on superficial biopsy. cannot exclude malignancy deep in tumor remaining polyps - tubular adenoma no high grade dysplasia surgery planned for next week, was waiting for result of pathology to plan extent of surgery, patient agreeable to surgery strict aspiration precautions GT feeding failed swallow eval , keep NPO and continue TF monitor HH, at baseline, s/p blood transfusion BS management with SS of insulin remains normotensive, no need for anti HTN medications at this time Venous Duplex BLE negative DVT, GI prophylaxis wound care as per wound nurse recommendations case discussed and evaluated by supervising physician Subjective Allergies: Coded Allergies: No Known Allergies (Unverified , 06/17/16) Subjective mild leukocytosis today, afebrile denies chest pain, SOB, no signs of respiratory distress on current settings Objective Last 24 Hour Vital Signs Date Time Temp Pulse Resp B/P Pulse Ox O2 Delivery O2 Flow Rate FiO2 12/22/16 07:11 79 19 100 Mechanical Ventilator 40 12/22/16 07:08 77 18 40 12/22/16 05:25 72 18 40 12/22/16 04:00 64 12/22/16 04:00 40 12/22/16 03:44 98.4 70 16 118/78 100 Mechanical Ventilator 40 12/22/16 03:10 86 18 100 Mechanical Ventilator 40 12/22/16 03:00 79 17 100 Mechanical Ventilator 40 12/22/16 02:59 79 17 40 12/22/16 01:15 77 17 40 12/22/16 00:00 78 12/22/16 00:00 40 12/21/16 23:27 98.8 80 19 113/82 100 Mechanical Ventilator 40 12/21/16 22:49 77 17 40 12/21/16 20:00 40 12/21/16 20:00 78 12/21/16 19:33 98.2 78 16 100/69 100 Mechanical Ventilator 40 12/21/16 19:22 84 20 100 Mechanical Ventilator 40 12/21/16 19:03 87 20 100 Mechanical Ventilator 40 12/21/16 19:02 83 20 40 12/21/16 17:30 76 16 40 12/21/16 16:00 74 12/21/16 16:00 40 12/21/16 16:00 97.9 69 16 101/69 97 Mechanical Ventilator 40 12/21/16 15:03 76 16 40 12/21/16 14:28 76 19 100 Mechanical Ventilator 40 12/21/16 14:18 81 19 100 Mechanical Ventilator 40 12/21/16 12:50 63 18 40 12/21/16 12:00 40 12/21/16 12:00 63 12/21/16 12:00 97.5 65 16 114/72 100 Mechanical Ventilator 40 12/21/16 11:26 80 19 40 12/21/16 09:53 69 16 100 Mechanical Ventilator 40 12/21/16 09:40 64 16 100 Mechanical Ventilator 40 12/21/16 09:21 82 19 40 12/21/16 08:00 63 12/21/16 08:00 40 12/21/16 08:00 97.2 60 16 127/75 100 Mechanical Ventilator 40 Intake and Output 12/21/16 12/22/16 19:00 07:00 Intake Total 1730 ml 868.1 ml Output Total 1650 ml Balance 1730 ml -781.9 ml Free Water 150 ml IV Total 880 ml 868.1 ml Tube Feeding 700 ml Output Urine Total 1650 ml # Bowel Movements 1 Objective General Appearance: no acute distress, cachetic, other - awake, responsive, bedriden, vent dependent AA male Vent AC 600-40%-16 HEENT: normocephalic, atraumatic, anicteric, status post trach - Shiley #8, secretions moderate, yellow, thin Respiratory/Chest: lungs clear, no respiratory distress, no accessory muscle use, rhonchi Cardiovascular: normal rate, regular rhythm, no JVD Abdomen: normal bowel sounds, soft, non tender, other - G tube Extremities: no edema Skin: other - sacral st 3 POA Neurologic/Psychiatric: abnormal gait, alert, responsive Laboratory Tests 12/22/16 03:30: White Blood Count 11.0H, Red Blood Count 3.28L, Hemoglobin 9.8L, Hematocrit 30.0L, Mean Corpuscular Volume 91, Mean Corpuscular Hemoglobin 29.8, Mean Corpuscular Hemoglobin Concent 32.5, Red Cell Distribution Width 15.8H, Platelet Count 235, Mean Platelet Volume 6.3L, Neutrophils (%) (Auto) 73.9, Lymphocytes (%) (Auto) 16.0L, Monocytes (%) (Auto) 6.3, Eosinophils (%) (Auto) 2.6, Basophils (%) (Auto) 1.2, Sodium Level 135, Potassium Level 4.5, Chloride Level 97L, Carbon Dioxide Level 28, Anion Gap 10, Blood Urea Nitrogen 15, Creatinine 0.4L, Estimat Glomerular Filtration Rate > 60, Glucose Level 77, Calcium Level 8.1L Current Medications Medications (Trade) Dose Ordered Sig/Shraddha Route PRN Reason Start Time Stop Time Status Last Admin Dose Admin Acetaminophen (Tylenol) 650 mg Q4H PRN ORAL FEVER 12/12/16 19:30 01/11/17 19:29 12/21/16 02:34 Albuterol/ Ipratropium (DuoNeb 0.5-3(2.5)mg/3ml) 3 ml Q4H PRN HHN Shortness of Breath 12/21/16 18:00 12/26/16 17:59 12/22/16 07:11 Dextrose (Dextrose 50%) STAT PRN IV Hypoglycemia 12/12/16 19:30 01/11/17 19:29 Heparin Sodium (Porcine) (Heparin 5000 units/ml) 5,000 units EVERY 12 HOURS SUBQ 12/12/16 21:00 01/11/17 20:59 12/21/16 20:24 Insulin Aspart (NovoLOG) BEFORE MEALS AND HS SUBQ 12/12/16 21:00 01/11/17 20:59 12/20/16 16:55 Ondansetron HCl (Zofran) 4 mg Q6H PRN IVP Nausea & Vomiting 12/12/16 19:30 01/11/17 19:29 Pantoprazole (Protonix) 40 mg DAILY IV 12/13/16 09:00 01/12/17 08:59 12/21/16 08:44 Polyethylene Glycol (Miralax) 17 gm DAILYPRN PRN ORAL Constipation 12/12/16 19:30 01/11/17 19:29 Promethazine HCl/ Codeine 5 ml 5 ml Q4H PRN ORAL For Cough 12/13/16 10:30 01/12/17 10:29 12/22/16 02:44 Sodium Chloride (Sodium Chloride 1000ml bag) 1,000 ml @ 75 mls/hr [id number] IV 12/18/16 22:15 01/17/17 22:14 12/22/16 06:14 Tigecycline 50 mg/ Dextrose 110 ml @ 220 mls/hr EVERY 12 HOURS IVPB 12/15/16 09:00 12/22/16 08:59 12/21/16 20:23 Hua SorensonKatia sampson NP Dec 22, 2016 07:33
[2016-12-22 08:00] VITALS: BP 101/71
--- NOTE | 2016-12-22 08:47 | Infectious Diseases Prog Note ---
Assessment/Plan Assessment/Plan A: Pneumonia UTI VDRF Colonic mass , adenoma Pulmonary HPN Pleural effusion P; Continue Tygacil Subjective ROS Limited/Unobtainable: Yes Respiratory: Reports: dry cough Allergies: Coded Allergies: No Known Allergies (Unverified , 06/17/16) Objective Vital Signs Last 24 Hour Vital Signs Date Time Temp Pulse Resp B/P Pulse Ox O2 Delivery O2 Flow Rate FiO2 12/22/16 08:00 40 12/22/16 08:00 97.9 65 16 101/71 100 Mechanical Ventilator 40 12/22/16 07:11 79 19 100 Mechanical Ventilator 40 12/22/16 07:08 77 18 40 12/22/16 05:25 72 18 40 12/22/16 04:00 64 12/22/16 04:00 40 12/22/16 03:44 98.4 70 16 118/78 100 Mechanical Ventilator 40 12/22/16 03:10 86 18 100 Mechanical Ventilator 40 12/22/16 03:00 79 17 100 Mechanical Ventilator 40 12/22/16 02:59 79 17 40 12/22/16 01:15 77 17 40 12/22/16 00:00 78 12/22/16 00:00 40 12/21/16 23:27 98.8 80 19 113/82 100 Mechanical Ventilator 40 12/21/16 22:49 77 17 40 12/21/16 20:00 40 12/21/16 20:00 78 12/21/16 19:33 98.2 78 16 100/69 100 Mechanical Ventilator 40 12/21/16 19:22 84 20 100 Mechanical Ventilator 40 12/21/16 19:03 87 20 100 Mechanical Ventilator 40 12/21/16 19:02 83 20 40 12/21/16 17:30 76 16 40 12/21/16 16:00 74 12/21/16 16:00 40 12/21/16 16:00 97.9 69 16 101/69 97 Mechanical Ventilator 40 12/21/16 15:03 76 16 40 12/21/16 14:28 76 19 100 Mechanical Ventilator 40 12/21/16 14:18 81 19 100 Mechanical Ventilator 40 12/21/16 12:50 63 18 40 12/21/16 12:00 40 12/21/16 12:00 63 12/21/16 12:00 97.5 65 16 114/72 100 Mechanical Ventilator 40 12/21/16 11:26 80 19 40 12/21/16 09:53 69 16 100 Mechanical Ventilator 40 12/21/16 09:40 64 16 100 Mechanical Ventilator 40 12/21/16 09:21 82 19 40 Height (Feet): 5 Height (Inches): 9.00 Weight (Pounds): 125 General Appearance: no acute distress HEENT: status post trach Respiratory/Chest: lungs clear, other - on ventilator Cardiovascular: normal rate Abdomen: soft, non tender Extremities: no edema Neurologic/Psychiatric: alert, responsive Laboratory Tests Test 12/22/16 03:30 White Blood Count 11.0 K/UL (4.8-10.8) H Red Blood Count 3.28 M/UL (4.70-6.10) L Hemoglobin 9.8 G/DL (14.2-18.0) L Hematocrit 30.0 % (42.0-52.0) L Mean Corpuscular Volume 91 FL (80-99) Mean Corpuscular Hemoglobin 29.8 PG (27.0-31.0) Mean Corpuscular Hemoglobin Concent 32.5 G/DL (32.0-36.0) Red Cell Distribution Width 15.8 % (11.6-14.8) H Platelet Count 235 K/UL (150-450) Mean Platelet Volume 6.3 FL (6.5-10.1) L Neutrophils (%) (Auto) 73.9 % (45.0-75.0) Lymphocytes (%) (Auto) 16.0 % (20.0-45.0) L Monocytes (%) (Auto) 6.3 % (1.0-10.0) Eosinophils (%) (Auto) 2.6 % (0.0-3.0) Basophils (%) (Auto) 1.2 % (0.0-2.0) Sodium Level 135 mEQ/L (135-145) Potassium Level 4.5 mEQ/L (3.4-4.9) Chloride Level 97 mEQ/L (98-107) L Carbon Dioxide Level 28 mEQ/L (20-30) Anion Gap 10 (5-15) Blood Urea Nitrogen 15 mg/dL (7-23) Creatinine 0.4 mg/dL (0.7-1.2) L Estimat Glomerular Filtration Rate > 60 mL/min (>60) Glucose Level 77 mg/dL (74-106) Calcium Level 8.1 mg/dL (8.6-10.2) L Current Medications Medications (Trade) Dose Ordered Sig/Shraddha Route PRN Reason Start Time Stop Time Status Last Admin Dose Admin Acetaminophen (Tylenol) 650 mg Q4H PRN ORAL FEVER 12/12/16 19:30 01/11/17 19:29 12/21/16 02:34 Albuterol/ Ipratropium (DuoNeb 0.5-3(2.5)mg/3ml) 3 ml Q4H PRN HHN Shortness of Breath 12/21/16 18:00 12/26/16 17:59 12/22/16 07:11 Dextrose (Dextrose 50%) STAT PRN IV Hypoglycemia 12/12/16 19:30 01/11/17 19:29 Heparin Sodium (Porcine) (Heparin 5000 units/ml) 5,000 units EVERY 12 HOURS SUBQ 12/12/16 21:00 01/11/17 20:59 12/21/16 20:24 Insulin Aspart (NovoLOG) BEFORE MEALS AND HS SUBQ 12/12/16 21:00 01/11/17 20:59 12/20/16 16:55 Ondansetron HCl (Zofran) 4 mg Q6H PRN IVP Nausea & Vomiting 12/12/16 19:30 01/11/17 19:29 Pantoprazole (Protonix) 40 mg DAILY IV 12/13/16 09:00 01/12/17 08:59 12/21/16 08:44 Polyethylene Glycol (Miralax) 17 gm DAILYPRN PRN ORAL Constipation 12/12/16 19:30 01/11/17 19:29 Promethazine HCl/ Codeine 5 ml 5 ml Q4H PRN ORAL For Cough 12/13/16 10:30 01/12/17 10:29 12/22/16 02:44 Sodium Chloride (Sodium Chloride 1000ml bag) 1,000 ml @ 75 mls/hr [id number] IV 12/18/16 22:15 01/17/17 22:14 12/22/16 06:14 Tigecycline 50 mg/ Dextrose 110 ml @ 220 mls/hr EVERY 12 HOURS IVPB 12/15/16 09:00 12/22/16 08:59 12/21/16 20:23 LINNETTE DIAZ Dec 22, 2016 08:47
[2016-12-22] MEDS: Pantoprazole Inj IV SCH (08:49)
[2016-12-22] MEDS: Heparin 5000 units/ml inj SUBQ SCH ×2 (08:51→21:41)
[2016-12-22 09:25] LABS: ABG ALLEN TEST POSITIVE; ABG BASE EXCESS 2.9; ABG PCO2 40.1 mmHg (35.0-45.0)
[2016-12-22] MEDS: DiphenhydrAMINE 50mg/ml Inj IVP PRN (11:32)
[2016-12-22] MEDS ORDERED: Sterile Water Irrig 1000ml IRRIG ONE (11:33)
[2016-12-22 12:00] VITALS: BP 110/75
--- NOTE | 2016-12-22 13:50 | General Surgery Progress Note ---
General Surgery-Progress Note Subjective Symptoms: improved, pain absent Additional Comments stable Objective Last 24 Hour Vital Signs Date Time Temp Pulse Resp B/P Pulse Ox O2 Delivery O2 Flow Rate FiO2 12/22/16 12:59 81 18 40 12/22/16 12:03 40 12/22/16 12:00 79 12/22/16 12:00 97.9 91 19 110/75 100 Mechanical Ventilator 40 12/22/16 10:54 82 18 100 Mechanical Ventilator 40 12/22/16 10:50 87 18 40 12/22/16 10:01 87 12/22/16 09:06 73 16 40 12/22/16 08:00 40 12/22/16 08:00 97.9 65 16 101/71 100 Mechanical Ventilator 40 12/22/16 07:20 80 18 100 Mechanical Ventilator 40 12/22/16 07:11 79 19 100 Mechanical Ventilator 40 12/22/16 07:08 77 18 40 12/22/16 05:25 72 18 40 12/22/16 04:00 64 12/22/16 04:00 40 12/22/16 03:44 98.4 70 16 118/78 100 Mechanical Ventilator 40 12/22/16 03:10 86 18 100 Mechanical Ventilator 40 12/22/16 03:00 79 17 100 Mechanical Ventilator 40 12/22/16 02:59 79 17 40 12/22/16 01:15 77 17 40 12/22/16 00:00 78 12/22/16 00:00 40 12/21/16 23:27 98.8 80 19 113/82 100 Mechanical Ventilator 40 12/21/16 22:49 77 17 40 12/21/16 20:00 40 12/21/16 20:00 78 12/21/16 19:33 98.2 78 16 100/69 100 Mechanical Ventilator 40 12/21/16 19:22 84 20 100 Mechanical Ventilator 40 12/21/16 19:03 87 20 100 Mechanical Ventilator 40 12/21/16 19:02 83 20 40 12/21/16 17:30 76 16 40 12/21/16 16:00 74 12/21/16 16:00 40 12/21/16 16:00 97.9 69 16 101/69 97 Mechanical Ventilator 40 12/21/16 15:03 76 16 40 12/21/16 14:28 76 19 100 Mechanical Ventilator 40 12/21/16 14:18 81 19 100 Mechanical Ventilator 40 I&O Intake and Output 12/21/16 12/22/16 19:00 07:00 Intake Total 1730 ml 868.1 ml Output Total 1650 ml Balance 1730 ml -781.9 ml Free Water 150 ml IV Total 880 ml 868.1 ml Tube Feeding 700 ml Output Urine Total 1650 ml # Bowel Movements 1 Respiratory: clear Abdomen: soft, non-tender, present bowel sounds Extremities: no edema, no tenderness, no cyanosis Laboratory Tests Test 12/22/16 03:30 12/22/16 09:17 White Blood Count 11.0 K/UL (4.8-10.8) H Red Blood Count 3.28 M/UL (4.70-6.10) L Hemoglobin 9.8 G/DL (14.2-18.0) L Hematocrit 30.0 % (42.0-52.0) L Mean Corpuscular Volume 91 FL (80-99) Mean Corpuscular Hemoglobin 29.8 PG (27.0-31.0) Mean Corpuscular Hemoglobin Concent 32.5 G/DL (32.0-36.0) Red Cell Distribution Width 15.8 % (11.6-14.8) H Platelet Count 235 K/UL (150-450) Mean Platelet Volume 6.3 FL (6.5-10.1) L Neutrophils (%) (Auto) 73.9 % (45.0-75.0) Lymphocytes (%) (Auto) 16.0 % (20.0-45.0) L Monocytes (%) (Auto) 6.3 % (1.0-10.0) Eosinophils (%) (Auto) 2.6 % (0.0-3.0) Basophils (%) (Auto) 1.2 % (0.0-2.0) Sodium Level 135 mEQ/L (135-145) Potassium Level 4.5 mEQ/L (3.4-4.9) Chloride Level 97 mEQ/L (98-107) L Carbon Dioxide Level 28 mEQ/L (20-30) Anion Gap 10 (5-15) Blood Urea Nitrogen 15 mg/dL (7-23) Creatinine 0.4 mg/dL (0.7-1.2) L Estimat Glomerular Filtration Rate > 60 mL/min (>60) Glucose Level 77 mg/dL (74-106) Calcium Level 8.1 mg/dL (8.6-10.2) L Arterial Blood pH 7.448 (7.350-7.450) Arterial Blood Partial Pressure CO2 40.1 mmHg (35.0-45.0) Arterial Blood Partial Pressure O2 119.2 mmHg (75.0-100.0) H Arterial Blood HCO3 27.1 mmol/L (22.0-26.0) H Arterial Blood Oxygen Saturation 98.1 % (92.0-98.0) H Arterial Blood Base Excess 2.9 Joseluis Test Positive Plan Problems: (1) Mass of colon Assessment & Plan: 66M large colonic mass and multiple colonic polyps. Recent colonoscopy(s) performed and biopsy of mass taken as well as multiple other polyps. 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 Mass seen on two prior abdominal CT scans (06/2016 and 11/2016); large and growing. has high grade dysplasia on path. Discussed findings with patient. He would like surgical intervention. Discussed risks, benefits, and alternatives to surgical intervention with patient. He expressed understanding and desire to proceed. Will try and schedule for surgery this week. 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 Can monitor remaining polyps with colonoscopy guidelines specify. once date and time for surgery confirmed will make npo. Landon Farfan Dec 22, 2016 13:50
[2016-12-22] MEDS: Tigecycline 50 MG in D5W 110 ML IVPB SCH ×2 (15:04→22:58)
[2016-12-22 15:57] VITALS: BP_SYST 106; BP_SYST 120; BP_DIAS 47; BP_DIAS 74
--- NOTE | 2016-12-22 16:14 | Internal Med Progress Note ---
Subjective Date of Service: Dec 22, 2016 Physician Name Tadeo Verdin Attending Physician Steve Rader MD Current Medications Medications (Trade) Dose Ordered Sig/Shraddha Route PRN Reason Start Time Stop Time Status Last Admin Dose Admin Acetaminophen (Tylenol) 650 mg Q4H PRN ORAL FEVER 12/12/16 19:30 01/11/17 19:29 12/21/16 02:34 Albuterol/ Ipratropium (DuoNeb 0.5-3(2.5)mg/3ml) 3 ml Q4H PRN HHN Shortness of Breath 12/21/16 18:00 12/26/16 17:59 12/22/16 15:49 Dextrose (Dextrose 50%) STAT PRN IV Hypoglycemia 12/12/16 19:30 01/11/17 19:29 Diphenhydramine HCl 25 mg 25 mg Q6H PRN IVP Itching 12/22/16 10:00 01/21/17 09:59 12/22/16 11:32 Heparin Sodium (Porcine) (Heparin 5000 units/ml) 5,000 units EVERY 12 HOURS SUBQ 12/12/16 21:00 01/11/17 20:59 12/22/16 08:51 Insulin Aspart (NovoLOG) BEFORE MEALS AND HS SUBQ 12/12/16 21:00 01/11/17 20:59 12/20/16 16:55 Ondansetron HCl (Zofran) 4 mg Q6H PRN IVP Nausea & Vomiting 12/12/16 19:30 01/11/17 19:29 Pantoprazole (Protonix) 40 mg DAILY IV 12/13/16 09:00 01/12/17 08:59 12/22/16 08:49 Polyethylene Glycol (Miralax) 17 gm DAILYPRN PRN ORAL Constipation 12/12/16 19:30 01/11/17 19:29 Promethazine HCl/ Codeine 5 ml 5 ml Q4H PRN ORAL For Cough 12/13/16 10:30 01/12/17 10:29 12/22/16 02:44 Sodium Chloride (Sodium Chloride 1000ml bag) 1,000 ml @ 75 mls/hr [id number] IV 12/18/16 22:15 01/17/17 22:14 12/22/16 06:14 Tigecycline/ Dextrose (Tygacil/D5W) 110 ml @ 220 mls/hr Q12HR IVPB 12/22/16 15:00 12/23/16 23:59 12/22/16 15:04 Allergies: Coded Allergies: No Known Allergies (Unverified , 06/17/16) ROS Limited/Unobtainable: Yes Subjective 66 YO M admitted for shortness of breath and tachycardia. Intubated and sedated. JORDAN. Cover for Int Med-Dr Rader. Objective Last Vital Signs Date Time Temp Pulse Resp B/P Pulse Ox O2 Delivery O2 Flow Rate FiO2 12/22/16 16:00 40 12/22/16 15:57 98.1 70 22 106/47 98 Mechanical Ventilator 12/19/16 01:52 80.0 Laboratory Tests Test 12/22/16 03:30 12/22/16 09:17 White Blood Count 11.0 K/UL (4.8-10.8) H Red Blood Count 3.28 M/UL (4.70-6.10) L Hemoglobin 9.8 G/DL (14.2-18.0) L Hematocrit 30.0 % (42.0-52.0) L Mean Corpuscular Volume 91 FL (80-99) Mean Corpuscular Hemoglobin 29.8 PG (27.0-31.0) Mean Corpuscular Hemoglobin Concent 32.5 G/DL (32.0-36.0) Red Cell Distribution Width 15.8 % (11.6-14.8) H Platelet Count 235 K/UL (150-450) Mean Platelet Volume 6.3 FL (6.5-10.1) L Neutrophils (%) (Auto) 73.9 % (45.0-75.0) Lymphocytes (%) (Auto) 16.0 % (20.0-45.0) L Monocytes (%) (Auto) 6.3 % (1.0-10.0) Eosinophils (%) (Auto) 2.6 % (0.0-3.0) Basophils (%) (Auto) 1.2 % (0.0-2.0) Sodium Level 135 mEQ/L (135-145) Potassium Level 4.5 mEQ/L (3.4-4.9) Chloride Level 97 mEQ/L (98-107) L Carbon Dioxide Level 28 mEQ/L (20-30) Anion Gap 10 (5-15) Blood Urea Nitrogen 15 mg/dL (7-23) Creatinine 0.4 mg/dL (0.7-1.2) L Estimat Glomerular Filtration Rate > 60 mL/min (>60) Glucose Level 77 mg/dL (74-106) Calcium Level 8.1 mg/dL (8.6-10.2) L Arterial Blood pH 7.448 (7.350-7.450) Arterial Blood Partial Pressure CO2 40.1 mmHg (35.0-45.0) Arterial Blood Partial Pressure O2 119.2 mmHg (75.0-100.0) H Arterial Blood HCO3 27.1 mmol/L (22.0-26.0) H Arterial Blood Oxygen Saturation 98.1 % (92.0-98.0) H Arterial Blood Base Excess 2.9 Joseluis Test Positive Intake and Output 12/21/16 12/22/16 19:00 07:00 Intake Total 1730 ml 868.1 ml Output Total 1650 ml Balance 1730 ml -781.9 ml Free Water 150 ml IV Total 880 ml 868.1 ml Tube Feeding 700 ml Output Urine Total 1650 ml # Bowel Movements 1 Objective General Appearance: lethargic, thin EENT: PERRL/EOMI, normal ENT inspection Neck: Trach; non-tender, normal alignment, supple Cardiovascular: normal peripheral pulses, regular rhythm, no gallop/murmur, no JVD, tachycardia Respiratory/Chest: Mech vent; chest wall non-tender, crackles/rales, rhonchi - bilaterally, expiratory wheezing Abdomen: normal bowel sounds, non tender, soft, no organomegaly, no mass 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 See ID note. D/C vanco and amikacin. Continue tygacil. (2) Tachycardia (3) SOB (shortness of breath) Assessment & Plan: Due to pneurmonia. (4) Hypertension (5) Acute and chronic respiratory failure Assessment & Plan: Currently on Mech vent. See pulmonary note. (6) Emphysema lung (7) Lung abscess (8) Mass of colon (9) Pneumonia Assessment & Plan: see pulmonary and ID note. (10) Mass of cecum Assessment & Plan: See surgery note. S/P Colonoscopy 12/17/16; repeat . Will require resection when stable. Status: not improved TADEO VERDIN Dec 22, 2016 16:14
[2016-12-22 20:57] VITALS: BP 117/75
[2016-12-23] VITALS: BP 123/77
[2016-12-23 04:00] VITALS: BP 118/73
[2016-12-23 05:10] LABS: BASOPHILS % (AUTO) 1.3 % (0.0-2.0); EOSINOPHILS % (AUTO) 5.8 % (0.0-3.0); LYMPHOCYTES % (AUTO) 16.2 % (20.0-45.0); MEAN CORPUSCULAR HEMOGLOBIN 29.3 PG (27.0-31.0); MEAN CORPUSCULAR HGB CONC 32.3 G/DL (32.0-36.0); MEAN CORPUSCULAR VOLUME 91 FL (80-99); MONOCYTES % (AUTO) 6.7 % (1.0-10.0); PLATELET COUNT 228 K/UL (150-450); RED BLOOD COUNT 3.31 M/UL (4.70-6.10); RED CELL DISTRIBUTION WIDTH 15.6 % (11.6-14.8); WHITE BLOOD COUNT 8.7 K/UL (4.8-10.8)
[2016-12-23] MEDS: DuoNeb 0.5-3(2.5)mg/3ml neb HHN PRN ×4 (05:44→22:15)
[2016-12-23 05:49] LABS: ANION GAP 9 (5-15); CALCIUM 7.9 mg/dL (8.6-10.2); CARBON DIOXIDE 27 mEQ/L (20-30); CHLORIDE 98 mEQ/L (98-107); CREATININE 0.5 mg/dL (0.7-1.2); GLOMERULAR FILTRATION RATE > 60 mL/min (>60); HEMOLYSIS 3; POTASSIUM 4.2 mEQ/L (3.4-4.9); SODIUM 134 mEQ/L (135-145)
[2016-12-23] MEDS: NovoLOG Insulin Flexpen SUBQ SCH ×4 (06:12→21:00)
[2016-12-23 06:39] LABS: BD FL SOURCE THORACENTESIS
[2016-12-23 06:40] LABS: BD FL VOLUME 24 mL; LDH, BODY FLUID 102 U/L
[2016-12-23 08:00] VITALS: BP 119/77
[2016-12-23] MEDS: Pantoprazole Inj IV SCH (08:38)
[2016-12-23] MEDS: Heparin 5000 units/ml inj SUBQ SCH ×2 (08:38→21:32)
[2016-12-23] MEDS: DiphenhydrAMINE 50mg/ml Inj IVP PRN (08:38)
--- NOTE | 2016-12-23 08:42 | Diagnostic Imaging Report ---
Indications: Shortness of breath Technique: Portable AP chest Findings: Comparison: 12/16/2016 Right lung volume loss persists with subtotal parenchymal consolidation, increased interstitial markings, parenchymal subsegmental atelectasis versus scarring in the nonconsolidated portions of right lung base, unchanged. Right apical and basal pleural effusion versus thickening persist, unchanged. Hyperinflation of left lung with attenuation of apical bronchovascular markings, only increased interstitial markings and base persist, unchanged. Cardiomediastinal silhouette stable. No new abnormality identified. IMPRESSION: Stable right lung volume loss, partial parenchymal consolidation, interstitial disease, subsegmental atelectasis versus scarring Stable right pleural effusions versus thickening, nonspecific Stable left lung COPD findings
--- NOTE | 2016-12-23 09:10 | Infectious Diseases Prog Note ---
Assessment/Plan Assessment/Plan ASSESSMENT: 66 y/o male with: // Probable recurrent HCAP / VAP r/o empyema - SCx : not sent - CXR 12/13: Fairly extensive infiltrate throughout the right lung persists, may be slightly worse. Left lung and pleural space remain clear - h/o MDR ACB, PSA - CT 11/14 :Extensive pneumonia involving both lungs as described above. 5-6 cm cavitary focus suspicious for lung abscess in the right upper lobe. // Recurrent pleural effusion no evid of empyema or malignancy - SP thoracentesis 12/13 - - SP thoracentesis 11/21 neg empyema // Recurrent MDR-ACB UTI - h/o yeast, VRE // Leukocytosis - SP , afebrile ( DVT, probable CA contributing ) // HIV and Hep B/C : neg // Colon mass,TV adenoma SP Colonoscopy with biopsy and snare polypectomy 12/18 CT: Large cecal mass and other polypoid colonic masses, detailed previously , again demonstrated // Acute on chronic VDRF SP trach, PEG - h/o COPD // Severe pulmonary HTN / grade I diastolic dysfunction / mod TR // Pulmonary nodules // h/o chronic RLE DVT - repeat doppler neg // Thrombocytosis // [place] resident // MDRO colonized // NKDA // Full Code PLAN: - cont tygacil d# 9 / 10 SP IV vancomycin, amikacin d# 2 - monitor CBC, temperatures - monitor BMP - monitor CXR - vent support, trach care, aspiration precautions - as per GenSx: need excision of colon mass, : possible Sx this wk Subjective Constitutional: Denies: anorexia, chills, drenching sweats, fatigue, fever, no symptoms, other Allergies: Coded Allergies: No Known Allergies (Unverified , 06/17/16) Subjective no new complain Objective Vital Signs Last 24 Hour Vital Signs Date Time Temp Pulse Resp B/P Pulse Ox O2 Delivery O2 Flow Rate FiO2 12/23/16 06:47 77 19 40 12/23/16 06:14 71 16 100 Mechanical Ventilator 40 12/23/16 05:45 40 12/23/16 05:44 65 18 100 Mechanical Ventilator 40 12/23/16 05:42 70 16 100 Mechanical Ventilator 40 12/23/16 05:41 70 19 Mechanical Ventilator 40 12/23/16 05:40 70 16 40 6/19/17 04:02 65 12/23/16 04:00 97.2 71 18 118/73 100 Mechanical Ventilator 40 12/23/16 04:00 40 12/23/16 03:13 61 16 40 12/23/16 00:48 67 16 40 12/23/16 00:00 97.2 78 16 123/77 100 Mechanical Ventilator 40 12/23/16 00:00 40 12/22/16 23:48 77 12/22/16 23:00 64 16 40 12/22/16 20:57 87.7 71 16 117/75 100 Mechanical Ventilator 40 12/22/16 20:41 40 12/22/16 20:41 90 20 100 Mechanical Ventilator 40 12/22/16 20:37 90 20 40 12/22/16 20:00 40 12/22/16 19:46 85 12/22/16 19:04 64 16 40 12/22/16 16:55 75 18 40 12/22/16 16:02 75 18 100 Mechanical Ventilator 40 12/22/16 16:00 59 12/22/16 16:00 40 12/22/16 15:57 97.2 73 16 120/74 100 Mechanical Ventilator 40 12/22/16 15:49 68 18 100 Mechanical Ventilator 40 12/22/16 14:30 78 18 40 12/22/16 12:59 81 18 40 12/22/16 12:03 40 12/22/16 12:00 79 12/22/16 12:00 97.9 91 19 110/75 100 Mechanical Ventilator 40 12/22/16 10:54 82 18 100 Mechanical Ventilator 40 12/22/16 10:50 87 18 40 12/22/16 10:01 87 Height (Feet): 5 Height (Inches): 9.00 Weight (Pounds): 132 Laboratory Tests Test 12/22/16 09:17 12/23/16 04:10 Arterial Blood pH 7.448 (7.350-7.450) Arterial Blood Partial Pressure CO2 40.1 mmHg (35.0-45.0) Arterial Blood Partial Pressure O2 119.2 mmHg (75.0-100.0) H Arterial Blood HCO3 27.1 mmol/L (22.0-26.0) H Arterial Blood Oxygen Saturation 98.1 % (92.0-98.0) H Arterial Blood Base Excess 2.9 Joseluis Test Positive White Blood Count 8.7 K/UL (4.8-10.8) Red Blood Count 3.31 M/UL (4.70-6.10) L Hemoglobin 9.7 G/DL (14.2-18.0) L Hematocrit 30.1 % (42.0-52.0) L Mean Corpuscular Volume 91 FL (80-99) Mean Corpuscular Hemoglobin 29.3 PG (27.0-31.0) Mean Corpuscular Hemoglobin Concent 32.3 G/DL (32.0-36.0) Red Cell Distribution Width 15.6 % (11.6-14.8) H Platelet Count 228 K/UL (150-450) Mean Platelet Volume 7.0 FL (6.5-10.1) Neutrophils (%) (Auto) 70.0 % (45.0-75.0) Lymphocytes (%) (Auto) 16.2 % (20.0-45.0) L Monocytes (%) (Auto) 6.7 % (1.0-10.0) Eosinophils (%) (Auto) 5.8 % (0.0-3.0) H Basophils (%) (Auto) 1.3 % (0.0-2.0) Sodium Level 134 mEQ/L (135-145) L Potassium Level 4.2 mEQ/L (3.4-4.9) Chloride Level 98 mEQ/L (98-107) Carbon Dioxide Level 27 mEQ/L (20-30) Anion Gap 9 (5-15) Blood Urea Nitrogen 15 mg/dL (7-23) Creatinine 0.5 mg/dL (0.7-1.2) L Estimat Glomerular Filtration Rate > 60 mL/min (>60) Glucose Level 69 mg/dL (74-106) L Calcium Level 7.9 mg/dL (8.6-10.2) L Current Medications Medications (Trade) Dose Ordered Sig/Shraddha Route PRN Reason Start Time Stop Time Status Last Admin Dose Admin Acetaminophen (Tylenol) 650 mg Q4H PRN ORAL FEVER 12/12/16 19:30 01/11/17 19:29 12/21/16 02:34 Albuterol/ Ipratropium (DuoNeb 0.5-3(2.5)mg/3ml) 3 ml Q4H PRN HHN Shortness of Breath 12/21/16 18:00 12/26/16 17:59 12/23/16 05:44 Dextrose (Dextrose 50%) STAT PRN IV Hypoglycemia 12/12/16 19:30 01/11/17 19:29 Diphenhydramine HCl 25 mg 25 mg Q6H PRN IVP Itching 12/22/16 10:00 01/21/17 09:59 12/23/16 08:38 Heparin Sodium (Porcine) (Heparin 5000 units/ml) 5,000 units EVERY 12 HOURS SUBQ 12/12/16 21:00 01/11/17 20:59 12/23/16 08:38 Insulin Aspart (NovoLOG) BEFORE MEALS AND HS SUBQ 12/12/16 21:00 01/11/17 20:59 12/22/16 16:55 Ondansetron HCl (Zofran) 4 mg Q6H PRN IVP Nausea & Vomiting 12/12/16 19:30 01/11/17 19:29 Pantoprazole (Protonix) 40 mg DAILY IV 12/13/16 09:00 01/12/17 08:59 12/23/16 08:38 Polyethylene Glycol (Miralax) 17 gm DAILYPRN PRN ORAL Constipation 12/12/16 19:30 01/11/17 19:29 Promethazine HCl/ Codeine 5 ml 5 ml Q4H PRN ORAL For Cough 12/13/16 10:30 01/12/17 10:29 12/22/16 02:44 Sodium Chloride (Sodium Chloride 1000ml bag) 1,000 ml @ 75 mls/hr [id number] IV 12/18/16 22:15 01/17/17 22:14 12/22/16 19:44 Tigecycline/ Dextrose (Tygacil/D5W) 110 ml @ 220 mls/hr Q12HR IVPB 12/22/16 15:00 12/23/16 23:59 12/22/16 22:58 KIMBERLEE HINKLE M.D. Dec 23, 2016 09:10
[2016-12-23] MEDS: Tigecycline 50 MG in D5W 110 ML IVPB SCH ×2 (09:41→21:25)
--- NOTE | 2016-12-23 10:16 | GI Progress Note ---
Assessment/Plan Problems: (1) Mass of cecum ICD Codes: K63.9 - Disease of intestine, unspecified SNOMED: 265244854 (2) Severe anemia ICD Codes: D64.9 - Anemia, unspecified SNOMED: 442888341 (3) Colonic mass ICD Codes: K63.9 - Disease of intestine, unspecified SNOMED: 256762582 (4) Gastric mass ICD Codes: K31.9 - Disease of stomach and duodenum, unspecified SNOMED: 134129387 (5) LFTs abnormal ICD Codes: R79.89 - Other specified abnormal findings of blood chemistry SNOMED: 501555629 (6) DVT (deep venous thrombosis) ICD Codes: I82.409 - Acute embolism and thrombosis of unspecified deep veins of unspecified lower extremity SNOMED: 570424232 (7) ENMA (iron deficiency anemia) ICD Codes: D50.9 - Iron deficiency anemia, unspecified SNOMED: 74235131 (8) Dysphagia ICD Codes: R13.10 - Dysphagia, unspecified SNOMED: 37500035, 604693576 (9) Anemia ICD Codes: D64.9 - Anemia, unspecified SNOMED: 685447785 Status: stable Status Narrative Discussed with Dr. Quiroz. Assessment/Plan S/P COLONOSCOPY SUMMARY OF FINDINGS: 1. Cecal mass status post biopsy, see above for details. 2. 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 cannot exclude malignancy deep in tumor remaining polyps - tubular adenoma no high grade dysplasia PLAN: fu surgical recs >> possible partial colectomy vs subtotal fu biopsy report >> high grade dysplasia in cecum monitor H&H, transfuse prn GTFs, NPO per surgery ppi hydrocortisone prn fu labs recommend patient for f/u colonoscopy given multiple polyps Subjective Subjective limited itching Objective Last 24 Hour Vital Signs Date Time Temp Pulse Resp B/P Pulse Ox O2 Delivery O2 Flow Rate FiO2 12/23/16 09:22 78 17 40 12/23/16 08:00 97.2 68 16 119/77 100 Mechanical Ventilator 40 12/23/16 08:00 40 12/23/16 06:47 77 19 40 12/23/16 06:14 71 16 100 Mechanical Ventilator 40 12/23/16 05:45 40 12/23/16 05:44 65 18 100 Mechanical Ventilator 40 12/23/16 05:42 70 16 100 Mechanical Ventilator 40 12/23/16 05:41 70 19 Mechanical Ventilator 40 12/23/16 05:40 70 16 40 12/23/16 04:02 65 12/23/16 04:00 97.2 71 18 118/73 100 Mechanical Ventilator 40 12/23/16 04:00 40 12/23/16 03:13 61 16 40 12/23/16 00:48 67 16 40 12/23/16 00:00 97.2 78 16 123/77 100 Mechanical Ventilator 40 12/23/16 00:00 40 12/22/16 23:48 77 12/22/16 23:00 64 16 40 12/22/16 20:57 87.7 71 16 117/75 100 Mechanical Ventilator 40 12/22/16 20:41 40 12/22/16 20:41 90 20 100 Mechanical Ventilator 40 12/22/16 20:37 90 20 40 12/22/16 20:00 40 12/22/16 19:46 85 12/22/16 19:04 64 16 40 12/22/16 16:55 75 18 40 12/22/16 16:02 75 18 100 Mechanical Ventilator 40 12/22/16 16:00 59 12/22/16 16:00 40 12/22/16 15:57 97.2 73 16 120/74 100 Mechanical Ventilator 40 12/22/16 15:49 68 18 100 Mechanical Ventilator 40 12/22/16 14:30 78 18 40 12/22/16 12:59 81 18 40 12/22/16 12:03 40 12/22/16 12:00 79 12/22/16 12:00 97.9 91 19 110/75 100 Mechanical Ventilator 40 12/22/16 10:54 82 18 100 Mechanical Ventilator 40 12/22/16 10:50 87 18 40 Intake and Output 12/22/16 12/23/16 19:00 07:00 Intake Total 2035 ml 1065 ml Output Total 1800 ml 1600 ml Balance 235 ml -535 ml Free Water 400 ml IV Total 935 ml 1065 ml Tube Feeding 700 ml Output Urine Total 1800 ml 1600 ml # Bowel Movements 3 3 Laboratory Tests Test 12/23/16 04:10 White Blood Count 8.7 K/UL (4.8-10.8) Red Blood Count 3.31 M/UL (4.70-6.10) L Hemoglobin 9.7 G/DL (14.2-18.0) L Hematocrit 30.1 % (42.0-52.0) L Mean Corpuscular Volume 91 FL (80-99) Mean Corpuscular Hemoglobin 29.3 PG (27.0-31.0) Mean Corpuscular Hemoglobin Concent 32.3 G/DL (32.0-36.0) Red Cell Distribution Width 15.6 % (11.6-14.8) H Platelet Count 228 K/UL (150-450) Mean Platelet Volume 7.0 FL (6.5-10.1) Neutrophils (%) (Auto) 70.0 % (45.0-75.0) Lymphocytes (%) (Auto) 16.2 % (20.0-45.0) L Monocytes (%) (Auto) 6.7 % (1.0-10.0) Eosinophils (%) (Auto) 5.8 % (0.0-3.0) H Basophils (%) (Auto) 1.3 % (0.0-2.0) Sodium Level 134 mEQ/L (135-145) L Potassium Level 4.2 mEQ/L (3.4-4.9) Chloride Level 98 mEQ/L (98-107) Carbon Dioxide Level 27 mEQ/L (20-30) Anion Gap 9 (5-15) Blood Urea Nitrogen 15 mg/dL (7-23) Creatinine 0.5 mg/dL (0.7-1.2) L Estimat Glomerular Filtration Rate > 60 mL/min (>60) Glucose Level 69 mg/dL (74-106) L Calcium Level 7.9 mg/dL (8.6-10.2) L Height (Feet): 5 Height (Inches): 9.00 Weight (Pounds): 132 General Appearance: no apparent distress, alert, thin Cardiovascular: normal rate Respiratory/Chest: no respiratory distress, other - mech vent Abdominal Exam: GT site - c/d/Angeles Rincon N.P. Dec 23, 2016 10:16
[2016-12-23] MEDS ORDERED: Tubing IV Secondary IV ONE (10:36)
--- NOTE | 2016-12-23 10:49 | Internal Med Progress Note ---
Subjective Date of Service: Dec 23, 2016 Physician Name Tadeo Verdin Attending Physician Steve Rader MD Current Medications Medications (Trade) Dose Ordered Sig/Shraddha Route PRN Reason Start Time Stop Time Status Last Admin Dose Admin Acetaminophen (Tylenol) 650 mg Q4H PRN ORAL FEVER 12/12/16 19:30 01/11/17 19:29 12/21/16 02:34 Albuterol/ Ipratropium (DuoNeb 0.5-3(2.5)mg/3ml) 3 ml Q4H PRN HHN Shortness of Breath 12/21/16 18:00 12/26/16 17:59 12/23/16 10:39 Dextrose (Dextrose 50%) STAT PRN IV Hypoglycemia 12/12/16 19:30 01/11/17 19:29 Diphenhydramine HCl 25 mg 25 mg Q6H PRN IVP Itching 12/22/16 10:00 01/21/17 09:59 12/23/16 08:38 Heparin Sodium (Porcine) (Heparin 5000 units/ml) 5,000 units EVERY 12 HOURS SUBQ 12/12/16 21:00 01/11/17 20:59 12/23/16 08:38 Hydrocortisone (Hydrocortisone) 1 applic Q6H PRN TOPIC Itching 12/23/16 10:30 01/22/17 10:29 Insulin Aspart (NovoLOG) BEFORE MEALS AND HS SUBQ 12/12/16 21:00 01/11/17 20:59 12/22/16 16:55 Ondansetron HCl (Zofran) 4 mg Q6H PRN IVP Nausea & Vomiting 12/12/16 19:30 01/11/17 19:29 Pantoprazole (Protonix) 40 mg DAILY IV 12/13/16 09:00 01/12/17 08:59 12/23/16 08:38 Polyethylene Glycol (Miralax) 17 gm DAILYPRN PRN ORAL Constipation 12/12/16 19:30 01/11/17 19:29 Promethazine HCl/ Codeine 5 ml 5 ml Q4H PRN ORAL For Cough 12/13/16 10:30 01/12/17 10:29 12/22/16 02:44 Sodium Chloride (Sodium Chloride 1000ml bag) 1,000 ml @ 75 mls/hr [id number] IV 12/18/16 22:15 01/17/17 22:14 12/23/16 09:41 Tigecycline/ Dextrose (Tygacil/D5W) 110 ml @ 220 mls/hr Q12HR IVPB 12/22/16 15:00 12/23/16 23:59 12/23/16 09:41 Allergies: Coded Allergies: No Known Allergies (Unverified , 06/17/16) ROS Limited/Unobtainable: No Constitutional: Reports: no symptoms HEENT: Reports: no symptoms Cardiovascular: Reports: no symptoms Respiratory: Reports: no symptoms Gastrointestinal/Abdominal: Reports: no symptoms Genitourinary: Reports: no symptoms Neurologic/Psychiatric: Reports: no symptoms Subjective 66 YO M admitted for shortness of breath and tachycardia. Intubated and sedated. JORDAN. Cover for Int Med-Dr Rader. Objective Last Vital Signs Date Time Temp Pulse Resp B/P Pulse Ox O2 Delivery O2 Flow Rate FiO2 12/23/16 10:30 70 16 40 12/23/16 10:30 100 Mechanical Ventilator 12/23/16 08:00 97.2 119/77 12/19/16 01:52 80.0 Laboratory Tests Test 12/23/16 04:10 White Blood Count 8.7 K/UL (4.8-10.8) Red Blood Count 3.31 M/UL (4.70-6.10) L Hemoglobin 9.7 G/DL (14.2-18.0) L Hematocrit 30.1 % (42.0-52.0) L Mean Corpuscular Volume 91 FL (80-99) Mean Corpuscular Hemoglobin 29.3 PG (27.0-31.0) Mean Corpuscular Hemoglobin Concent 32.3 G/DL (32.0-36.0) Red Cell Distribution Width 15.6 % (11.6-14.8) H Platelet Count 228 K/UL (150-450) Mean Platelet Volume 7.0 FL (6.5-10.1) Neutrophils (%) (Auto) 70.0 % (45.0-75.0) Lymphocytes (%) (Auto) 16.2 % (20.0-45.0) L Monocytes (%) (Auto) 6.7 % (1.0-10.0) Eosinophils (%) (Auto) 5.8 % (0.0-3.0) H Basophils (%) (Auto) 1.3 % (0.0-2.0) Sodium Level 134 mEQ/L (135-145) L Potassium Level 4.2 mEQ/L (3.4-4.9) Chloride Level 98 mEQ/L (98-107) Carbon Dioxide Level 27 mEQ/L (20-30) Anion Gap 9 (5-15) Blood Urea Nitrogen 15 mg/dL (7-23) Creatinine 0.5 mg/dL (0.7-1.2) L Estimat Glomerular Filtration Rate > 60 mL/min (>60) Glucose Level 69 mg/dL (74-106) L Calcium Level 7.9 mg/dL (8.6-10.2) L Intake and Output 12/22/16 12/23/16 19:00 07:00 Intake Total 2035 ml 1065 ml Output Total 1800 ml 1600 ml Balance 235 ml -535 ml Free Water 400 ml IV Total 935 ml 1065 ml Tube Feeding 700 ml Output Urine Total 1800 ml 1600 ml # Bowel Movements 3 3 Objective General Appearance: lethargic, thin EENT: PERRL/EOMI, normal ENT inspection Neck: Trach; non-tender, normal alignment, supple Cardiovascular: normal peripheral pulses, regular rhythm, no gallop/murmur, no JVD, tachycardia Respiratory/Chest: Mech vent; chest wall non-tender, crackles/rales, rhonchi - bilaterally, expiratory wheezing Abdomen: normal bowel sounds, non tender, soft, no organomegaly, no mass 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 See ID note. D/C vanco and amikacin. Continue tygacil day #03/16 (2) Tachycardia (3) SOB (shortness of breath) Assessment & Plan: Due to pneurmonia. (4) Hypertension (5) Acute and chronic respiratory failure Assessment & Plan: Currently on Mech vent. See pulmonary note. (6) Emphysema lung (7) Lung abscess (8) Mass of colon (9) Pneumonia Assessment & Plan: see pulmonary and ID note. (10) Mass of cecum Assessment & Plan: See surgery note. S/P Colonoscopy 12/17/16; repeat . Possible hemicolectomy this week. Status: not improved TADEO VERDIN Dec 23, 2016 10:49
--- NOTE | 2016-12-23 11:04 | General Surgery Progress Note ---
General Surgery-Progress Note Subjective Symptoms: improved Additional Comments patient seen and examined at bedside. no acute events. resting comfortable. Objective Last 24 Hour Vital Signs Date Time Temp Pulse Resp B/P Pulse Ox O2 Delivery O2 Flow Rate FiO2 12/23/16 10:30 70 16 40 12/23/16 10:30 70 16 100 Mechanical Ventilator 40 12/23/16 10:20 71 16 100 Mechanical Ventilator 40 12/23/16 10:20 40 12/23/16 09:22 78 17 40 12/23/16 08:00 77 12/23/16 08:00 97.2 68 16 119/77 100 Mechanical Ventilator 40 12/23/16 08:00 40 12/23/16 06:47 77 19 40 12/23/16 06:14 71 16 100 Mechanical Ventilator 40 12/23/16 05:45 40 12/23/16 05:44 65 18 100 Mechanical Ventilator 40 12/23/16 05:42 70 16 100 Mechanical Ventilator 40 12/23/16 05:41 70 19 Mechanical Ventilator 40 12/23/16 05:40 70 16 40 12/23/16 04:02 65 12/23/16 04:00 97.2 71 18 118/73 100 Mechanical Ventilator 40 12/23/16 04:00 40 12/23/16 03:13 61 16 40 12/23/16 00:48 67 16 40 12/23/16 00:00 97.2 78 16 123/77 100 Mechanical Ventilator 40 12/23/16 00:00 40 12/22/16 23:48 77 12/22/16 23:00 64 16 40 12/22/16 20:57 87.7 71 16 117/75 100 Mechanical Ventilator 40 12/22/16 20:41 40 12/22/16 20:41 90 20 100 Mechanical Ventilator 40 12/22/16 20:37 90 20 40 12/22/16 20:00 40 12/22/16 19:46 85 12/22/16 19:04 64 16 40 12/22/16 16:55 75 18 40 12/22/16 16:02 75 18 100 Mechanical Ventilator 40 12/22/16 16:00 59 12/22/16 16:00 40 12/22/16 15:57 97.2 73 16 120/74 100 Mechanical Ventilator 40 12/22/16 15:49 68 18 100 Mechanical Ventilator 40 12/22/16 14:30 78 18 40 12/22/16 12:59 81 18 40 12/22/16 12:03 40 12/22/16 12:00 79 12/22/16 12:00 97.9 91 19 110/75 100 Mechanical Ventilator 40 I&O Intake and Output 12/22/16 12/23/16 19:00 07:00 Intake Total 2035 ml 1065 ml Output Total 1800 ml 1600 ml Balance 235 ml -535 ml Free Water 400 ml IV Total 935 ml 1065 ml Tube Feeding 700 ml Output Urine Total 1800 ml 1600 ml # Bowel Movements 3 3 Cardiovascular: RSR Respiratory: clear Abdomen: soft, non-tender, present bowel sounds Extremities: no edema, no tenderness, no cyanosis Laboratory Tests Test 12/23/16 04:10 White Blood Count 8.7 K/UL (4.8-10.8) Red Blood Count 3.31 M/UL (4.70-6.10) L Hemoglobin 9.7 G/DL (14.2-18.0) L Hematocrit 30.1 % (42.0-52.0) L Mean Corpuscular Volume 91 FL (80-99) Mean Corpuscular Hemoglobin 29.3 PG (27.0-31.0) Mean Corpuscular Hemoglobin Concent 32.3 G/DL (32.0-36.0) Red Cell Distribution Width 15.6 % (11.6-14.8) H Platelet Count 228 K/UL (150-450) Mean Platelet Volume 7.0 FL (6.5-10.1) Neutrophils (%) (Auto) 70.0 % (45.0-75.0) Lymphocytes (%) (Auto) 16.2 % (20.0-45.0) L Monocytes (%) (Auto) 6.7 % (1.0-10.0) Eosinophils (%) (Auto) 5.8 % (0.0-3.0) H Basophils (%) (Auto) 1.3 % (0.0-2.0) Sodium Level 134 mEQ/L (135-145) L Potassium Level 4.2 mEQ/L (3.4-4.9) Chloride Level 98 mEQ/L (98-107) Carbon Dioxide Level 27 mEQ/L (20-30) Anion Gap 9 (5-15) Blood Urea Nitrogen 15 mg/dL (7-23) Creatinine 0.5 mg/dL (0.7-1.2) L Estimat Glomerular Filtration Rate > 60 mL/min (>60) Glucose Level 69 mg/dL (74-106) L Calcium Level 7.9 mg/dL (8.6-10.2) L Plan Problems: (1) Mass of colon Assessment & Plan: 66M large colonic mass and multiple colonic polyps. Recent colonoscopy(s) performed and biopsy of mass taken as well as multiple other polyps. 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 Mass seen on two prior abdominal CT scans (06/2016 and 11/2016); large and growing. has high grade dysplasia on path. Discussed findings with patient. He would like surgical intervention. Discussed risks, benefits, and alternatives to surgical intervention with patient. He expressed understanding and desire to proceed. Will try and schedule for surgery this week. 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 Can monitor remaining polyps with colonoscopy guidelines specify. Next available surgical time this at 11 am. Patient scheduled for laparoscopic vs open right austin-colectomy. Will make NPO Friday Monitor labs. Hold chemical anticoagulation friday Landon Farfan Dec 23, 2016 11:04
[2016-12-23 12:00] VITALS: BP 112/77
--- NOTE | 2016-12-23 12:48 | Pulmonology Progress Note ---
Assessment/Plan Problems: (1) Acute and chronic respiratory failure (2) Feeding by G-tube (3) Emphysema lung (4) Pleural effusion on right Respiratory: monitor respiratory rate, adjust FIO2 Cardiac: continue to monitor HR/BP Renal: F/U I&O, keep IV fluid Infectious Disease: continue antibiotics Gastrointestinal: continue feedings/current rate Endocrine: check HgA1C, continue sliding scale insulin Hematologic: monitor H/H, transfuse if hgb<8.5 Neurologic: PRN Ativan, keep patient comfortable Affect: PRN ativan Prophylaxis: Heparin Notes Reviewed: authorization manager, renal 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, consultants, rehabilitation case coordinator Subjective ROS Limited/Unobtainable: No Constitutional: Reports: no symptoms HEENT: Repors: no symptoms Respiratory: Reports: no symptoms Gastrointestinal/Abdominal: Reports: no symptoms Genitourinary: Reports: no symptoms Allergies: Coded Allergies: No Known Allergies (Unverified , 06/17/16) Objective Last 24 Hour Vital Signs Date Time Temp Pulse Resp B/P Pulse Ox O2 Delivery O2 Flow Rate FiO2 12/23/16 12:00 40 12/23/16 12:00 98.1 78 19 112/77 100 Mechanical Ventilator 40 12/23/16 10:30 70 16 40 12/23/16 10:30 70 16 100 Mechanical Ventilator 40 12/23/16 10:20 71 16 100 Mechanical Ventilator 40 12/23/16 10:20 40 12/23/16 09:22 78 17 40 12/23/16 08:00 77 12/23/16 08:00 97.2 68 16 119/77 100 Mechanical Ventilator 40 12/23/16 08:00 40 12/23/16 06:47 77 19 40 12/23/16 06:14 71 16 100 Mechanical Ventilator 40 12/23/16 05:45 40 12/23/16 05:44 65 18 100 Mechanical Ventilator 40 12/23/16 05:42 70 16 100 Mechanical Ventilator 40 12/23/16 05:41 70 19 Mechanical Ventilator 40 12/23/16 05:40 70 16 40 12/23/16 04:02 65 12/23/16 04:00 97.2 71 18 118/73 100 Mechanical Ventilator 40 12/23/16 04:00 40 12/23/16 03:13 61 16 40 12/23/16 00:48 67 16 40 12/23/16 00:00 97.2 78 16 123/77 100 Mechanical Ventilator 40 12/23/16 00:00 40 12/22/16 23:48 77 12/22/16 23:00 64 16 40 12/22/16 20:57 87.7 71 16 117/75 100 Mechanical Ventilator 40 12/22/16 20:41 40 12/22/16 20:41 90 20 100 Mechanical Ventilator 40 12/22/16 20:37 90 20 40 12/22/16 20:00 40 12/22/16 19:46 85 12/22/16 19:04 64 16 40 12/22/16 16:55 75 18 40 12/22/16 16:02 75 18 100 Mechanical Ventilator 40 12/22/16 16:00 59 12/22/16 16:00 40 12/22/16 15:57 97.2 73 16 120/74 100 Mechanical Ventilator 40 12/22/16 15:49 68 18 100 Mechanical Ventilator 40 12/22/16 14:30 78 18 40 12/22/16 12:59 81 18 40 Intake and Output 12/22/16 12/23/16 19:00 07:00 Intake Total 2035 ml 1065 ml Output Total 1800 ml 1600 ml Balance 235 ml -535 ml Free Water 400 ml IV Total 935 ml 1065 ml Tube Feeding 700 ml Output Urine Total 1800 ml 1600 ml # Bowel Movements 3 3 Objective General Appearance: cachetic Lines, tubes and drains: peripheral HEENT: normocephalic, atraumatic Neck: non-tender, normal alignment Respiratory/Chest: chest wall non-tender, lungs clear Breasts: no masses Cardiovascular/Chest: normal peripheral pulses Abdomen: normal bowel sounds, non tender Genitourinary/Rectal: normal genital exam Extremities: normal range of motion Laboratory Tests 12/23/16 04:10: White Blood Count 8.7, Red Blood Count 3.31L, Hemoglobin 9.7L, Hematocrit 30.1L , Mean Corpuscular Volume 91, Mean Corpuscular Hemoglobin 29.3, Mean Corpuscular Hemoglobin Concent 32.3, Red Cell Distribution Width 15.6H, Platelet Count 228, Mean Platelet Volume 7.0, Neutrophils (%) (Auto) 70.0, Lymphocytes (%) (Auto) 16.2L, Monocytes (%) (Auto) 6.7, Eosinophils (%) (Auto) 5.8H, Basophils (%) (Auto) 1.3, Sodium Level 134L, Potassium Level 4.2, Chloride Level 98, Carbon Dioxide Level 27, Anion Gap 9, Blood Urea Nitrogen 15 , Creatinine 0.5L, Estimat Glomerular Filtration Rate > 60, Glucose Level 69L, Calcium Level 7.9L Current Medications Medications (Trade) Dose Ordered Sig/Shraddha Route PRN Reason Start Time Stop Time Status Last Admin Dose Admin Acetaminophen (Tylenol) 650 mg Q4H PRN ORAL FEVER 12/12/16 19:30 01/11/17 19:29 12/21/16 02:34 Albuterol/ Ipratropium (DuoNeb 0.5-3(2.5)mg/3ml) 3 ml Q4H PRN HHN Shortness of Breath 12/21/16 18:00 12/26/16 17:59 12/23/16 10:39 Dextrose (Dextrose 50%) STAT PRN IV Hypoglycemia 12/12/16 19:30 01/11/17 19:29 Diphenhydramine HCl 25 mg 25 mg Q6H PRN IVP Itching 12/22/16 10:00 01/21/17 09:59 12/23/16 08:38 Heparin Sodium (Porcine) (Heparin 5000 units/ml) 5,000 units EVERY 12 HOURS SUBQ 12/12/16 21:00 01/11/17 20:59 12/23/16 08:38 Hydrocortisone (Hydrocortisone) 1 applic Q6H PRN TOPIC Itching 12/23/16 10:30 01/22/17 10:29 Insulin Aspart (NovoLOG) BEFORE MEALS AND HS SUBQ 12/12/16 21:00 01/11/17 20:59 12/22/16 16:55 Ondansetron HCl (Zofran) 4 mg Q6H PRN IVP Nausea & Vomiting 12/12/16 19:30 01/11/17 19:29 Pantoprazole (Protonix) 40 mg DAILY IV 12/13/16 09:00 01/12/17 08:59 12/23/16 08:38 Polyethylene Glycol (Miralax) 17 gm DAILYPRN PRN ORAL Constipation 12/12/16 19:30 01/11/17 19:29 Promethazine HCl/ Codeine 5 ml 5 ml Q4H PRN ORAL For Cough 12/13/16 10:30 01/12/17 10:29 12/22/16 02:44 Sodium Chloride (Sodium Chloride 1000ml bag) 1,000 ml @ 75 mls/hr [id number] IV 12/18/16 22:15 01/17/17 22:14 12/23/16 09:41 Tigecycline/ Dextrose (Tygacil/D5W) 110 ml @ 220 mls/hr Q12HR IVPB 12/22/16 15:00 12/23/16 23:59 12/23/16 09:41 REN WRIGHT Dec 23, 2016 12:48
--- NOTE | 2016-12-23 14:38 | Cardiac Electrophysiology PN ---
Assessment/Plan Assessment/Plan 1. Sinus tachycardia due to sepsis and respiratory failure. 2. Hypotension, resolved. 3. Severe chronic obstructive pulmonary disease and pulmonary hypertension.On Vent. 4. Pneumonia, on IV antibiotics. 5. Ventilator-dependent respiratory failure, status post tracheostomy on vent 6. Status post percutaneous endoscopic gastrostomy placement. 7. Cecal mass, status post transfusion. S/P EGD and colonoscopy and polyp removal twice. Mass seen on two prior abdominal CT scans (06/2016 and 11/2016) large and growing. Surgery awaiting pathology before planning surgical intervention (partial colectomy vs subtotal) per surgery 8. Pleural effusion, status post thoracentesis on 11/21/2016 and 12/14/16 Subjective Subjective Alert in JORDAN on vent via trach in SR.No significant change. Objective Last 24 Hour Vital Signs Date Time Temp Pulse Resp B/P Pulse Ox O2 Delivery O2 Flow Rate FiO2 12/23/16 13:17 60 16 40 12/23/16 12:00 40 12/23/16 12:00 81 12/23/16 12:00 98.1 78 19 112/77 100 Mechanical Ventilator 40 12/23/16 10:30 70 16 40 12/23/16 10:30 70 16 100 Mechanical Ventilator 40 12/23/16 10:20 71 16 100 Mechanical Ventilator 40 12/23/16 10:20 40 12/23/16 09:22 78 17 40 12/23/16 08:00 77 12/23/16 08:00 97.2 68 16 119/77 100 Mechanical Ventilator 40 12/23/16 08:00 40 12/23/16 06:47 77 19 40 12/23/16 06:14 71 16 100 Mechanical Ventilator 40 12/23/16 05:45 40 12/23/16 05:44 65 18 100 Mechanical Ventilator 40 12/23/16 05:42 70 16 100 Mechanical Ventilator 40 12/23/16 05:41 70 19 Mechanical Ventilator 40 12/23/16 05:40 70 16 40 12/23/16 04:02 65 12/23/16 04:00 97.2 71 18 118/73 100 Mechanical Ventilator 40 12/23/16 04:00 40 12/23/16 03:13 61 16 40 12/23/16 00:48 67 16 40 12/23/16 00:00 97.2 78 16 123/77 100 Mechanical Ventilator 40 12/23/16 00:00 40 12/22/16 23:48 77 12/22/16 23:00 64 16 40 12/22/16 20:57 87.7 71 16 117/75 100 Mechanical Ventilator 40 12/22/16 20:41 40 12/22/16 20:41 90 20 100 Mechanical Ventilator 40 12/22/16 20:37 90 20 40 12/22/16 20:00 40 12/22/16 19:46 85 12/22/16 19:04 64 16 40 12/22/16 16:55 75 18 40 12/22/16 16:02 75 18 100 Mechanical Ventilator 40 12/22/16 16:00 59 12/22/16 16:00 40 12/22/16 15:57 97.2 73 16 120/74 100 Mechanical Ventilator 40 12/22/16 15:49 68 18 100 Mechanical Ventilator 40 Intake and Output 12/22/16 12/23/16 19:00 07:00 Intake Total 2035 ml 1065 ml Output Total 1800 ml 1600 ml Balance 235 ml -535 ml Free Water 400 ml IV Total 935 ml 1065 ml Tube Feeding 700 ml Output Urine Total 1800 ml 1600 ml # Bowel Movements 3 3 Laboratory Tests Test 12/23/16 04:10 White Blood Count 8.7 K/UL (4.8-10.8) Red Blood Count 3.31 M/UL (4.70-6.10) L Hemoglobin 9.7 G/DL (14.2-18.0) L Hematocrit 30.1 % (42.0-52.0) L Mean Corpuscular Volume 91 FL (80-99) Mean Corpuscular Hemoglobin 29.3 PG (27.0-31.0) Mean Corpuscular Hemoglobin Concent 32.3 G/DL (32.0-36.0) Red Cell Distribution Width 15.6 % (11.6-14.8) H Platelet Count 228 K/UL (150-450) Mean Platelet Volume 7.0 FL (6.5-10.1) Neutrophils (%) (Auto) 70.0 % (45.0-75.0) Lymphocytes (%) (Auto) 16.2 % (20.0-45.0) L Monocytes (%) (Auto) 6.7 % (1.0-10.0) Eosinophils (%) (Auto) 5.8 % (0.0-3.0) H Basophils (%) (Auto) 1.3 % (0.0-2.0) Sodium Level 134 mEQ/L (135-145) L Potassium Level 4.2 mEQ/L (3.4-4.9) Chloride Level 98 mEQ/L (98-107) Carbon Dioxide Level 27 mEQ/L (20-30) Anion Gap 9 (5-15) Blood Urea Nitrogen 15 mg/dL (7-23) Creatinine 0.5 mg/dL (0.7-1.2) L Estimat Glomerular Filtration Rate > 60 mL/min (>60) Glucose Level 69 mg/dL (74-106) L Calcium Level 7.9 mg/dL (8.6-10.2) L Objective HEAD AND NECK: No JVD.Tracheostomy intact. LUNGS: Have coarse rhonchi. CARDIOVASCULAR: Tachycardic S1, S2 with no gallop or murmur. ABDOMEN: Soft. EXTREMITIES: One plus edema. OSWALD HILLS Dec 23, 2016 14:38
[2016-12-23 16:00] VITALS: BP 112/82
[2016-12-23] MEDS: Hydrocortisone 0.5% Cream 30gm TOPIC PRN (16:29)
[2016-12-23 20:00] VITALS: BP 110/76
[2016-12-24] VITALS: BP 112/76
[2016-12-24 04:20] VITALS: BP 139/79
[2016-12-24] MEDS: Hydrocortisone 0.5% Cream 30gm TOPIC PRN ×3 (04:35→18:45)
[2016-12-24] MEDS: DuoNeb 0.5-3(2.5)mg/3ml neb HHN PRN ×2 (04:50→11:16)
[2016-12-24 06:04] LABS: BASOPHILS % (AUTO) 1.1 % (0.0-2.0); EOSINOPHILS % (AUTO) 7.9 % (0.0-3.0); LYMPHOCYTES % (AUTO) 24.3 % (20.0-45.0); MEAN CORPUSCULAR HEMOGLOBIN 29.5 PG (27.0-31.0); MEAN CORPUSCULAR HGB CONC 32.8 G/DL (32.0-36.0); MEAN CORPUSCULAR VOLUME 90 FL (80-99); MEAN PLATELET VOLUME 6.8 FL (6.5-10.1); MONOCYTES % (AUTO) 7.3 % (1.0-10.0); NEUTROPHILS % (AUTO) 59.4 % (45.0-75.0); PLATELET COUNT 206 K/UL (150-450); RED BLOOD COUNT 3.33 M/UL (4.70-6.10); RED CELL DISTRIBUTION WIDTH 15.2 % (11.6-14.8); WHITE BLOOD COUNT 8.3 K/UL (4.8-10.8)
[2016-12-24 06:28] LABS: ANION GAP 13 (5-15); CALCIUM 8.2 mg/dL (8.6-10.2); CARBON DIOXIDE 25 mEQ/L (20-30); CHLORIDE 96 mEQ/L (98-107); CREATININE 0.5 mg/dL (0.7-1.2); GLOMERULAR FILTRATION RATE > 60 mL/min (>60); HEMOLYSIS 4; MAGNESIUM 1.8 mg/dL (1.7-2.5); PHOSPHORUS 3.8 mg/dL (2.5-4.8); POTASSIUM 4.1 mEQ/L (3.4-4.9); SODIUM 134 mEQ/L (135-145)
[2016-12-24] MEDS: NovoLOG Insulin Flexpen SUBQ SCH ×3 (06:29→18:00)
[2016-12-24 08:00] VITALS: BP 123/78
[2016-12-24] MEDS: Pantoprazole Inj IV SCH (08:07)
[2016-12-24] MEDS: Heparin 5000 units/ml inj SUBQ SCH ×2 (08:08→22:17)
--- NOTE | 2016-12-24 11:31 | General Surgery Progress Note ---
General Surgery-Progress Note Subjective Additional Comments stable. no acute events. comfortable Objective Last 24 Hour Vital Signs Date Time Temp Pulse Resp B/P Pulse Ox O2 Delivery O2 Flow Rate FiO2 12/24/16 11:16 40 12/24/16 11:16 51 17 100 Mechanical Ventilator 40 12/24/16 10:39 50 16 40 12/24/16 08:38 76 18 40 12/24/16 08:05 61 12/24/16 08:00 97.9 57 16 123/78 100 Mechanical Ventilator 40 12/24/16 08:00 40 12/24/16 07:10 65 17 40 12/24/16 05:17 72 16 100 Mechanical Ventilator 40 12/24/16 05:02 40 12/24/16 05:01 71 16 100 Mechanical Ventilator 40 12/24/16 05:00 71 16 40 12/24/16 04:20 98.2 58 18 139/79 100 Mechanical Ventilator 40 12/24/16 04:00 40 12/24/16 04:00 59 12/24/16 02:55 55 16 40 12/24/16 01:05 71 16 40 12/24/16 00:00 97.7 73 18 112/76 100 Mechanical Ventilator 40 12/24/16 00:00 40 12/23/16 23:42 77 12/23/16 23:30 64 16 40 12/23/16 22:16 69 16 100 Mechanical Ventilator 40 12/23/16 22:15 40 12/23/16 22:15 77 17 100 Mechanical Ventilator 40 12/23/16 21:00 58 17 40 12/23/16 20:00 98.2 69 16 110/76 100 Mechanical Ventilator 40 12/23/16 20:00 40 12/23/16 20:00 66 12/23/16 19:00 57 17 40 12/23/16 17:39 98.1 12/23/16 17:14 82 17 40 12/23/16 16:10 95 20 100 Mechanical Ventilator 40 12/23/16 16:00 98.2 87 19 112/82 100 Mechanical Ventilator 40 12/23/16 16:00 40 12/23/16 16:00 98 20 100 Mechanical Ventilator 40 12/23/16 16:00 84 12/23/16 16:00 40 12/23/16 15:01 76 17 40 12/23/16 13:17 60 16 40 12/23/16 12:00 40 12/23/16 12:00 81 12/23/16 12:00 98.1 78 19 112/77 100 Mechanical Ventilator 40 I&O Intake and Output 12/23/16 12/24/16 19:00 07:00 Intake Total 2035 ml 1182 ml Output Total 1300 ml 1300 ml Balance 735 ml -118 ml Free Water 400 ml 100 ml IV Total 935 ml 1082 ml Tube Feeding 700 ml Output Urine Total 1300 ml 1300 ml # Bowel Movements 3 Respiratory: clear Abdomen: soft, non-tender, present bowel sounds Extremities: no edema Laboratory Tests Test 12/24/16 05:15 White Blood Count 8.3 K/UL (4.8-10.8) Red Blood Count 3.33 M/UL (4.70-6.10) L Hemoglobin 9.8 G/DL (14.2-18.0) L Hematocrit 29.9 % (42.0-52.0) L Mean Corpuscular Volume 90 FL (80-99) Mean Corpuscular Hemoglobin 29.5 PG (27.0-31.0) Mean Corpuscular Hemoglobin Concent 32.8 G/DL (32.0-36.0) Red Cell Distribution Width 15.2 % (11.6-14.8) H Platelet Count 206 K/UL (150-450) Mean Platelet Volume 6.8 FL (6.5-10.1) Neutrophils (%) (Auto) 59.4 % (45.0-75.0) Lymphocytes (%) (Auto) 24.3 % (20.0-45.0) Monocytes (%) (Auto) 7.3 % (1.0-10.0) Eosinophils (%) (Auto) 7.9 % (0.0-3.0) H Basophils (%) (Auto) 1.1 % (0.0-2.0) Sodium Level 134 mEQ/L (135-145) L Potassium Level 4.1 mEQ/L (3.4-4.9) Chloride Level 96 mEQ/L (98-107) L Carbon Dioxide Level 25 mEQ/L (20-30) Anion Gap 13 (5-15) Blood Urea Nitrogen 15 mg/dL (7-23) Creatinine 0.5 mg/dL (0.7-1.2) L Estimat Glomerular Filtration Rate > 60 mL/min (>60) Glucose Level 91 mg/dL (74-106) Calcium Level 8.2 mg/dL (8.6-10.2) L Phosphorus Level 3.8 mg/dL (2.5-4.8) Magnesium Level 1.8 mg/dL (1.7-2.5) Plan Problems: (1) Mass of colon Assessment & Plan: 66M large colonic mass and multiple colonic polyps. Recent colonoscopy(s) performed and biopsy of mass taken as well as multiple other polyps. 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 Mass seen on two prior abdominal CT scans (06/2016 and 11/2016); large and growing. has high grade dysplasia on path. Discussed findings with patient. He would like surgical intervention. Discussed risks, benefits, and alternatives to surgical intervention with patient. He expressed understanding and desire to proceed. Will try and schedule for surgery this week. 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 Can monitor remaining polyps with colonoscopy guidelines specify. Next available surgical time this at 11 am. Patient scheduled for laparoscopic vs open right austin-colectomy. Will make NPO Friday Landon Farfan Dec 24, 2016 11:31
[2016-12-24 12:00] VITALS: BP 121/62
--- NOTE | 2016-12-24 13:13 | Infectious Diseases Prog Note ---
Assessment/Plan Assessment/Plan ASSESSMENT: 66 y/o male with: // Probable recurrent HCAP / VAP r/o empyema - SCx : not sent - CXR 12/13: Fairly extensive infiltrate throughout the right lung persists, may be slightly worse. Left lung and pleural space remain clear - h/o MDR ACB, PSA - CT 11/14 :Extensive pneumonia involving both lungs as described above. 5-6 cm cavitary focus suspicious for lung abscess in the right upper lobe. // Recurrent pleural effusion no evid of empyema or malignancy - SP thoracentesis 12/13 - - SP thoracentesis 11/21 neg empyema // Recurrent MDR-ACB UTI - h/o yeast, VRE // Leukocytosis - SP , afebrile ( DVT, probable CA contributing ) // HIV and Hep B/C : neg // Colon mass,TV adenoma SP Colonoscopy with biopsy and snare polypectomy 12/18 CT: Large cecal mass and other polypoid colonic masses, detailed previously , again demonstrated // Acute on chronic VDRF SP trach, PEG - h/o COPD // Severe pulmonary HTN / grade I diastolic dysfunction / mod TR // Pulmonary nodules // h/o chronic RLE DVT - repeat doppler neg // Thrombocytosis // [place] resident // MDRO colonized // NKDA // Full Code PLAN: - DC tygacil d# / 10 and monitor pt off of AB Rx SP IV vancomycin, amikacin d# 2 - monitor CBC, temperatures - monitor BMP - monitor CXR - vent support, trach care, aspiration precautions - as per GenSx: need excision of colon mass, : possible Sx this wk Subjective Allergies: Coded Allergies: No Known Allergies (Unverified , 06/17/16) Subjective no new complain Objective Vital Signs Last 24 Hour Vital Signs Date Time Temp Pulse Resp B/P Pulse Ox O2 Delivery O2 Flow Rate FiO2 12/24/16 12:00 98.1 64 19 121/62 100 Mechanical Ventilator 40 12/24/16 12:00 40 12/24/16 11:35 64 12/24/16 11:26 50 16 100 Mechanical Ventilator 40 12/24/16 11:16 40 12/24/16 11:16 51 17 100 Mechanical Ventilator 40 12/24/16 10:39 50 16 40 12/24/16 08:38 76 18 40 12/24/16 08:05 61 12/24/16 08:00 97.9 57 16 123/78 100 Mechanical Ventilator 40 12/24/16 08:00 40 12/24/16 07:10 65 17 40 12/24/16 05:17 72 16 100 Mechanical Ventilator 40 12/24/16 05:02 40 12/24/16 05:01 71 16 100 Mechanical Ventilator 40 12/24/16 05:00 71 16 40 12/24/16 04:20 98.2 58 18 139/79 100 Mechanical Ventilator 40 12/24/16 04:00 40 12/24/16 04:00 59 12/24/16 02:55 55 16 40 12/24/16 01:05 71 16 40 12/24/16 00:00 97.7 73 18 112/76 100 Mechanical Ventilator 40 12/24/16 00:00 40 12/23/16 23:42 77 12/23/16 23:30 64 16 40 12/23/16 22:16 69 16 100 Mechanical Ventilator 40 12/23/16 22:15 40 12/23/16 22:15 77 17 100 Mechanical Ventilator 40 12/23/16 21:00 58 17 40 12/23/16 20:00 98.2 69 16 110/76 100 Mechanical Ventilator 40 12/23/16 20:00 40 12/23/16 20:00 66 12/23/16 19:00 57 17 40 12/23/16 17:39 98.1 12/23/16 17:14 82 17 40 12/23/16 16:10 95 20 100 Mechanical Ventilator 40 12/23/16 16:00 98.2 87 19 112/82 100 Mechanical Ventilator 40 12/23/16 16:00 40 12/23/16 16:00 98 20 100 Mechanical Ventilator 40 12/23/16 16:00 84 12/23/16 16:00 40 12/23/16 15:01 76 17 40 12/23/16 13:17 60 16 40 Height (Feet): 5 Height (Inches): 9.00 Weight (Pounds): 133 HEENT: mucous membranes moist Respiratory/Chest: no respiratory distress Cardiovascular: regularly irregular Abdomen: no mass Laboratory Tests Test 12/24/16 05:15 White Blood Count 8.3 K/UL (4.8-10.8) Red Blood Count 3.33 M/UL (4.70-6.10) L Hemoglobin 9.8 G/DL (14.2-18.0) L Hematocrit 29.9 % (42.0-52.0) L Mean Corpuscular Volume 90 FL (80-99) Mean Corpuscular Hemoglobin 29.5 PG (27.0-31.0) Mean Corpuscular Hemoglobin Concent 32.8 G/DL (32.0-36.0) Red Cell Distribution Width 15.2 % (11.6-14.8) H Platelet Count 206 K/UL (150-450) Mean Platelet Volume 6.8 FL (6.5-10.1) Neutrophils (%) (Auto) 59.4 % (45.0-75.0) Lymphocytes (%) (Auto) 24.3 % (20.0-45.0) Monocytes (%) (Auto) 7.3 % (1.0-10.0) Eosinophils (%) (Auto) 7.9 % (0.0-3.0) H Basophils (%) (Auto) 1.1 % (0.0-2.0) Sodium Level 134 mEQ/L (135-145) L Potassium Level 4.1 mEQ/L (3.4-4.9) Chloride Level 96 mEQ/L (98-107) L Carbon Dioxide Level 25 mEQ/L (20-30) Anion Gap 13 (5-15) Blood Urea Nitrogen 15 mg/dL (7-23) Creatinine 0.5 mg/dL (0.7-1.2) L Estimat Glomerular Filtration Rate > 60 mL/min (>60) Glucose Level 91 mg/dL (74-106) Calcium Level 8.2 mg/dL (8.6-10.2) L Phosphorus Level 3.8 mg/dL (2.5-4.8) Magnesium Level 1.8 mg/dL (1.7-2.5) Current Medications Medications (Trade) Dose Ordered Sig/Shraddha Route PRN Reason Start Time Stop Time Status Last Admin Dose Admin Acetaminophen (Tylenol) 650 mg Q4H PRN ORAL FEVER 12/12/16 19:30 01/11/17 19:29 12/23/16 16:30 Albuterol/ Ipratropium (DuoNeb 0.5-3(2.5)mg/3ml) 3 ml Q4H PRN HHN Shortness of Breath 12/21/16 18:00 12/26/16 17:59 12/24/16 11:16 Dextrose (Dextrose 50%) STAT PRN IV Hypoglycemia 12/12/16 19:30 01/11/17 19:29 Diphenhydramine HCl (Benadryl) 25 mg Q6H PRN IVP Itching 12/22/16 10:00 01/21/17 09:59 12/23/16 08:38 Heparin Sodium (Porcine) (Heparin 5000 units/ml) 5,000 units EVERY 12 HOURS SUBQ 12/12/16 21:00 01/11/17 20:59 12/24/16 08:08 Hydrocortisone (Hydrocortisone) 1 applic Q6H PRN TOPIC Itching 12/23/16 10:30 01/22/17 10:29 12/24/16 11:29 Insulin Aspart (NovoLOG) EVERY 6 HOURS SUBQ 12/24/16 12:00 01/23/17 11:59 Ondansetron HCl (Zofran) 4 mg Q6H PRN IVP Nausea & Vomiting 12/12/16 19:30 01/11/17 19:29 Pantoprazole (Protonix) 40 mg DAILY IV 12/13/16 09:00 01/12/17 08:59 12/24/16 08:07 Polyethylene Glycol (Miralax) 17 gm DAILYPRN PRN ORAL Constipation 12/12/16 19:30 01/11/17 19:29 Promethazine HCl/ Codeine 5 ml 5 ml Q4H PRN ORAL For Cough 12/13/16 10:30 01/12/17 10:29 12/22/16 02:44 Sodium Chloride (Sodium Chloride 1000ml bag) 1,000 ml @ 75 mls/hr [id number] IV 12/18/16 22:15 01/17/17 22:14 12/24/16 11:30 KIMBERLEE HINKLE M.D. Dec 24, 2016 13:13
--- NOTE | 2016-12-24 14:18 | GI Progress Note ---
Assessment/Plan Problems: (1) Mass of cecum ICD Codes: K63.9 - Disease of intestine, unspecified SNOMED: 482966348 (2) Severe anemia ICD Codes: D64.9 - Anemia, unspecified SNOMED: 652998823 (3) Colonic mass ICD Codes: K63.9 - Disease of intestine, unspecified SNOMED: 722940345 (4) Gastric mass ICD Codes: K31.9 - Disease of stomach and duodenum, unspecified SNOMED: 155738738 (5) LFTs abnormal ICD Codes: R79.89 - Other specified abnormal findings of blood chemistry SNOMED: 425686621 (6) DVT (deep venous thrombosis) ICD Codes: I82.409 - Acute embolism and thrombosis of unspecified deep veins of unspecified lower extremity SNOMED: 549077147 (7) ENMA (iron deficiency anemia) ICD Codes: D50.9 - Iron deficiency anemia, unspecified SNOMED: 61043148 (8) Dysphagia ICD Codes: R13.10 - Dysphagia, unspecified SNOMED: 64902176, 116949434 (9) Anemia ICD Codes: D64.9 - Anemia, unspecified SNOMED: 483568746 Status: stable Status Narrative Discussed with Dr. Quiroz. Assessment/Plan S/P COLONOSCOPY SUMMARY OF FINDINGS: 1. Cecal mass status post biopsy, see above for details. 2. 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 cannot exclude malignancy deep in tumor remaining polyps - tubular adenoma no high grade dysplasia PLAN: surgical recs >> surgery schedule for , see surgical note. monitor H&H, transfuse prn GTFs per surgery ppi hydrocortisone prn fu labs recommend patient for f/u colonoscopy given multiple polyps Subjective Subjective limited, nonverbal Objective Last 24 Hour Vital Signs Date Time Temp Pulse Resp B/P Pulse Ox O2 Delivery O2 Flow Rate FiO2 12/24/16 12:36 57 16 40 12/24/16 12:00 98.1 64 19 121/62 100 Mechanical Ventilator 40 12/24/16 12:00 40 12/24/16 11:35 64 12/24/16 11:26 50 16 100 Mechanical Ventilator 40 12/24/16 11:16 40 12/24/16 11:16 51 17 100 Mechanical Ventilator 40 12/24/16 10:39 50 16 40 12/24/16 08:38 76 18 40 12/24/16 08:05 61 12/24/16 08:00 97.9 57 16 123/78 100 Mechanical Ventilator 40 12/24/16 08:00 40 12/24/16 07:10 65 17 40 12/24/16 05:17 72 16 100 Mechanical Ventilator 40 12/24/16 05:02 40 12/24/16 05:01 71 16 100 Mechanical Ventilator 40 12/24/16 05:00 71 16 40 12/24/16 04:20 98.2 58 18 139/79 100 Mechanical Ventilator 40 12/24/16 04:00 40 12/24/16 04:00 59 12/24/16 02:55 55 16 40 12/24/16 01:05 71 16 40 12/24/16 00:00 97.7 73 18 112/76 100 Mechanical Ventilator 40 12/24/16 00:00 40 12/23/16 23:42 77 12/23/16 23:30 64 16 40 12/23/16 22:16 69 16 100 Mechanical Ventilator 40 12/23/16 22:15 40 12/23/16 22:15 77 17 100 Mechanical Ventilator 40 12/23/16 21:00 58 17 40 12/23/16 20:00 98.2 69 16 110/76 100 Mechanical Ventilator 40 12/23/16 20:00 40 12/23/16 20:00 66 12/23/16 19:00 57 17 40 12/23/16 17:39 98.1 12/23/16 17:14 82 17 40 12/23/16 16:10 95 20 100 Mechanical Ventilator 40 12/23/16 16:00 98.2 87 19 112/82 100 Mechanical Ventilator 40 12/23/16 16:00 40 12/23/16 16:00 98 20 100 Mechanical Ventilator 40 12/23/16 16:00 84 12/23/16 16:00 40 12/23/16 15:01 76 17 40 Intake and Output 12/23/16 12/24/16 19:00 07:00 Intake Total 2035 ml 1182 ml Output Total 1300 ml 1300 ml Balance 735 ml -118 ml Free Water 400 ml 100 ml IV Total 935 ml 1082 ml Tube Feeding 700 ml Output Urine Total 1300 ml 1300 ml # Bowel Movements 3 Laboratory Tests Test 12/24/16 05:15 White Blood Count 8.3 K/UL (4.8-10.8) Red Blood Count 3.33 M/UL (4.70-6.10) L Hemoglobin 9.8 G/DL (14.2-18.0) L Hematocrit 29.9 % (42.0-52.0) L Mean Corpuscular Volume 90 FL (80-99) Mean Corpuscular Hemoglobin 29.5 PG (27.0-31.0) Mean Corpuscular Hemoglobin Concent 32.8 G/DL (32.0-36.0) Red Cell Distribution Width 15.2 % (11.6-14.8) H Platelet Count 206 K/UL (150-450) Mean Platelet Volume 6.8 FL (6.5-10.1) Neutrophils (%) (Auto) 59.4 % (45.0-75.0) Lymphocytes (%) (Auto) 24.3 % (20.0-45.0) Monocytes (%) (Auto) 7.3 % (1.0-10.0) Eosinophils (%) (Auto) 7.9 % (0.0-3.0) H Basophils (%) (Auto) 1.1 % (0.0-2.0) Sodium Level 134 mEQ/L (135-145) L Potassium Level 4.1 mEQ/L (3.4-4.9) Chloride Level 96 mEQ/L (98-107) L Carbon Dioxide Level 25 mEQ/L (20-30) Anion Gap 13 (5-15) Blood Urea Nitrogen 15 mg/dL (7-23) Creatinine 0.5 mg/dL (0.7-1.2) L Estimat Glomerular Filtration Rate > 60 mL/min (>60) Glucose Level 91 mg/dL (74-106) Calcium Level 8.2 mg/dL (8.6-10.2) L Phosphorus Level 3.8 mg/dL (2.5-4.8) Magnesium Level 1.8 mg/dL (1.7-2.5) Height (Feet): 5 Height (Inches): 9.00 Weight (Pounds): 133 General Appearance: no apparent distress, alert Cardiovascular: normal rate Respiratory/Chest: lungs clear Abdominal Exam: normal bowel sounds, non tender, soft, GT site - c/d/i Laverne,Angeles Paredes N.P. Dec 24, 2016 14:18
--- NOTE | 2016-12-24 15:46 | Cardiac Electrophysiology PN ---
Assessment/Plan Status Narrative Technically difficult study due to poor acoustic windows. Normal left ventricular chamber size, systolic function and wall motion. Left ventricular ejection fraction estimated to be 55-60 %. No evidence of left ventricular hypertrophy. No evidence of pericardial fat or effusion. Mild bi-atrial enlargement by 2D. Focal aortic valve sclerosis with adequate cusp excursion Thickened mitral valve leaflets with normal excursion. Mitral annulus and aortic root calcification. Pulmonic valve is well visualized. Normal tricuspid valve structure. IVC is normal in size with minimal physiologic collapse. RA pressure of 10mmHg. Assessment/Plan 1. Sinus tachycardia due to sepsis and respiratory failure. HR better. 2. Hypotension, resolved. 3. Severe chronic obstructive pulmonary disease and pulmonary hypertension.On Vent. 4. Pneumonia, on IV antibiotics. 5. Ventilator-dependent respiratory failure, status post tracheostomy on vent 6. Status post percutaneous endoscopic gastrostomy placement. 7. Cecal mass, status post transfusion. S/P EGD and colonoscopy and polyp removal twice. Mass seen on two prior abdominal CT scans (06/2016 and 11/2016) large and growing. Tubular adenoma with high grade dysplasia . Scheduled for right [place]- colectomy to remove large cecal tumor with high grade dysplasia tomorrow. No cardiac intervention necessary prior to surgery. EF 55-60%. Avoid hypotension. 8. Pleural effusion, status post thoracentesis on 11/21/2016 and 12/14/16 KATHY RN Subjective Subjective Alert in JORDAN on vent via trach. No significant change.Remained in SR. Objective Last 24 Hour Vital Signs Date Time Temp Pulse Resp B/P Pulse Ox O2 Delivery O2 Flow Rate FiO2 12/24/16 14:35 71 16 40 12/24/16 12:36 57 16 40 12/24/16 12:00 98.1 64 19 121/62 100 Mechanical Ventilator 40 12/24/16 12:00 40 12/24/16 11:35 64 12/24/16 11:26 50 16 100 Mechanical Ventilator 40 12/24/16 11:16 40 12/24/16 11:16 51 17 100 Mechanical Ventilator 40 12/24/16 10:39 50 16 40 12/24/16 08:38 76 18 40 12/24/16 08:05 61 12/24/16 08:00 97.9 57 16 123/78 100 Mechanical Ventilator 40 12/24/16 08:00 40 12/24/16 07:10 65 17 40 12/24/16 05:17 72 16 100 Mechanical Ventilator 40 12/24/16 05:02 40 12/24/16 05:01 71 16 100 Mechanical Ventilator 40 12/24/16 05:00 71 16 40 12/24/16 04:20 98.2 58 18 139/79 100 Mechanical Ventilator 40 12/24/16 04:00 40 12/24/16 04:00 59 12/24/16 02:55 55 16 40 12/24/16 01:05 71 16 40 12/24/16 00:00 97.7 73 18 112/76 100 Mechanical Ventilator 40 12/24/16 00:00 40 12/23/16 23:42 77 12/23/16 23:30 64 16 40 12/23/16 22:16 69 16 100 Mechanical Ventilator 40 12/23/16 22:15 40 12/23/16 22:15 77 17 100 Mechanical Ventilator 40 12/23/16 21:00 58 17 40 12/23/16 20:00 98.2 69 16 110/76 100 Mechanical Ventilator 40 12/23/16 20:00 40 12/23/16 20:00 66 12/23/16 19:00 57 17 40 12/23/16 17:39 98.1 12/23/16 17:14 82 17 40 12/23/16 16:10 95 20 100 Mechanical Ventilator 40 12/23/16 16:00 98.2 87 19 112/82 100 Mechanical Ventilator 40 12/23/16 16:00 40 12/23/16 16:00 98 20 100 Mechanical Ventilator 40 12/23/16 16:00 84 12/23/16 16:00 40 Intake and Output 12/23/16 12/24/16 19:00 07:00 Intake Total 2035 ml 1182 ml Output Total 1300 ml 1300 ml Balance 735 ml -118 ml Free Water 400 ml 100 ml IV Total 935 ml 1082 ml Tube Feeding 700 ml Output Urine Total 1300 ml 1300 ml # Bowel Movements 3 Laboratory Tests Test 12/24/16 05:15 White Blood Count 8.3 K/UL (4.8-10.8) Red Blood Count 3.33 M/UL (4.70-6.10) L Hemoglobin 9.8 G/DL (14.2-18.0) L Hematocrit 29.9 % (42.0-52.0) L Mean Corpuscular Volume 90 FL (80-99) Mean Corpuscular Hemoglobin 29.5 PG (27.0-31.0) Mean Corpuscular Hemoglobin Concent 32.8 G/DL (32.0-36.0) Red Cell Distribution Width 15.2 % (11.6-14.8) H Platelet Count 206 K/UL (150-450) Mean Platelet Volume 6.8 FL (6.5-10.1) Neutrophils (%) (Auto) 59.4 % (45.0-75.0) Lymphocytes (%) (Auto) 24.3 % (20.0-45.0) Monocytes (%) (Auto) 7.3 % (1.0-10.0) Eosinophils (%) (Auto) 7.9 % (0.0-3.0) H Basophils (%) (Auto) 1.1 % (0.0-2.0) Sodium Level 134 mEQ/L (135-145) L Potassium Level 4.1 mEQ/L (3.4-4.9) Chloride Level 96 mEQ/L (98-107) L Carbon Dioxide Level 25 mEQ/L (20-30) Anion Gap 13 (5-15) Blood Urea Nitrogen 15 mg/dL (7-23) Creatinine 0.5 mg/dL (0.7-1.2) L Estimat Glomerular Filtration Rate > 60 mL/min (>60) Glucose Level 91 mg/dL (74-106) Calcium Level 8.2 mg/dL (8.6-10.2) L Phosphorus Level 3.8 mg/dL (2.5-4.8) Magnesium Level 1.8 mg/dL (1.7-2.5) Objective HEAD AND NECK: No JVD.Tracheostomy intact. LUNGS: Have coarse rhonchi. CARDIOVASCULAR: Tachycardic S1, S2 with no gallop or murmur. ABDOMEN: Soft. EXTREMITIES: One plus edema. OSWALD HILLS Dec 24, 2016 15:46
[2016-12-24 16:00] VITALS: BP 120/72
--- NOTE | 2016-12-24 17:26 | Internal Med Progress Note ---
Subjective Date of Service: Dec 24, 2016 Physician Name Tadeo Verdin Attending Physician Steve Rader MD Current Medications Medications (Trade) Dose Ordered Sig/Shraddha Route PRN Reason Start Time Stop Time Status Last Admin Dose Admin Acetaminophen (Tylenol) 650 mg Q4H PRN ORAL FEVER 12/12/16 19:30 01/11/17 19:29 12/23/16 16:30 Albuterol/ Ipratropium (DuoNeb 0.5-3(2.5)mg/3ml) 3 ml Q4H PRN HHN Shortness of Breath 12/21/16 18:00 12/26/16 17:59 12/24/16 11:16 Dextrose (Dextrose 50%) STAT PRN IV Hypoglycemia 12/12/16 19:30 01/11/17 19:29 Diphenhydramine HCl (Benadryl) 25 mg Q6H PRN IVP Itching 12/22/16 10:00 01/21/17 09:59 12/23/16 08:38 Heparin Sodium (Porcine) (Heparin 5000 units/ml) 5,000 units EVERY 12 HOURS SUBQ 12/12/16 21:00 01/11/17 20:59 12/24/16 08:08 Hydrocortisone (Hydrocortisone) 1 applic Q6H PRN TOPIC Itching 12/23/16 10:30 01/22/17 10:29 12/24/16 11:29 Insulin Aspart (NovoLOG) EVERY 6 HOURS SUBQ 12/24/16 12:00 01/23/17 11:59 Ondansetron HCl (Zofran) 4 mg Q6H PRN IVP Nausea & Vomiting 12/12/16 19:30 01/11/17 19:29 Pantoprazole (Protonix) 40 mg DAILY IV 12/13/16 09:00 01/12/17 08:59 12/24/16 08:07 Polyethylene Glycol (Miralax) 17 gm DAILYPRN PRN ORAL Constipation 12/12/16 19:30 01/11/17 19:29 Promethazine HCl/ Codeine 5 ml 5 ml Q4H PRN ORAL For Cough 12/13/16 10:30 01/12/17 10:29 12/22/16 02:44 Sodium Chloride (Sodium Chloride 1000ml bag) 1,000 ml @ 75 mls/hr [id number] IV 12/18/16 22:15 01/17/17 22:14 12/24/16 11:30 Allergies: Coded Allergies: No Known Allergies (Unverified , 06/17/16) ROS Limited/Unobtainable: Yes Subjective 66 YO M admitted for shortness of breath and tachycardia. Intubated and sedated. JORDAN. Cover for Int Wilder-Dr Rader. Objective Last Vital Signs Date Time Temp Pulse Resp B/P Pulse Ox O2 Delivery O2 Flow Rate FiO2 12/24/16 16:00 40 12/24/16 15:16 75 12/24/16 14:35 16 12/24/16 12:00 98.1 121/62 100 Mechanical Ventilator 12/19/16 01:52 80.0 Laboratory Tests Test 12/24/16 05:15 White Blood Count 8.3 K/UL (4.8-10.8) Red Blood Count 3.33 M/UL (4.70-6.10) L Hemoglobin 9.8 G/DL (14.2-18.0) L Hematocrit 29.9 % (42.0-52.0) L Mean Corpuscular Volume 90 FL (80-99) Mean Corpuscular Hemoglobin 29.5 PG (27.0-31.0) Mean Corpuscular Hemoglobin Concent 32.8 G/DL (32.0-36.0) Red Cell Distribution Width 15.2 % (11.6-14.8) H Platelet Count 206 K/UL (150-450) Mean Platelet Volume 6.8 FL (6.5-10.1) Neutrophils (%) (Auto) 59.4 % (45.0-75.0) Lymphocytes (%) (Auto) 24.3 % (20.0-45.0) Monocytes (%) (Auto) 7.3 % (1.0-10.0) Eosinophils (%) (Auto) 7.9 % (0.0-3.0) H Basophils (%) (Auto) 1.1 % (0.0-2.0) Sodium Level 134 mEQ/L (135-145) L Potassium Level 4.1 mEQ/L (3.4-4.9) Chloride Level 96 mEQ/L (98-107) L Carbon Dioxide Level 25 mEQ/L (20-30) Anion Gap 13 (5-15) Blood Urea Nitrogen 15 mg/dL (7-23) Creatinine 0.5 mg/dL (0.7-1.2) L Estimat Glomerular Filtration Rate > 60 mL/min (>60) Glucose Level 91 mg/dL (74-106) Calcium Level 8.2 mg/dL (8.6-10.2) L Phosphorus Level 3.8 mg/dL (2.5-4.8) Magnesium Level 1.8 mg/dL (1.7-2.5) Intake and Output 12/23/16 12/24/16 19:00 07:00 Intake Total 2035 ml 1182 ml Output Total 1300 ml 1300 ml Balance 735 ml -118 ml Free Water 400 ml 100 ml IV Total 935 ml 1082 ml Tube Feeding 700 ml Output Urine Total 1300 ml 1300 ml # Bowel Movements 3 Objective General Appearance: lethargic, thin EENT: PERRL/EOMI, normal ENT inspection Neck: Trach; non-tender, normal alignment, supple Cardiovascular: normal peripheral pulses, regular rhythm, no gallop/murmur, no JVD, tachycardia Respiratory/Chest: Mech vent; chest wall non-tender, crackles/rales, rhonchi - bilaterally, expiratory wheezing Abdomen: normal bowel sounds, non tender, soft, no organomegaly, no mass Neurologic: medical lab specialist II-XII grossly normal, no motor/sensory deficits Skin: normal pigmentation, warm/dry Assessment/Plan Problem List: (1) UTI (urinary tract infection) Assessment & Plan: Acinetobacter Baumanii. See ID note. D/C vanco and amikacin. Continue tygacil day #03/16 (2) Tachycardia (3) SOB (shortness of breath) Assessment & Plan: Due to pneurmonia. (4) Hypertension (5) Acute and chronic respiratory failure Assessment & Plan: Currently on Mech vent. See pulmonary note. (6) Emphysema lung (7) Lung abscess (8) Mass of colon (9) Pneumonia Assessment & Plan: see pulmonary and ID note. (10) Mass of cecum Assessment & Plan: See surgery note. S/P Colonoscopy 12/17/16; repeat . Right hemicolectomy scheduled for Th12/26/16 Status: not improved TADEO VERDIN Dec 24, 2016 17:26
--- NOTE | 2016-12-24 18:17 | Pulmonology Progress Note ---
Assessment/Plan Problems: (1) Acute and chronic respiratory failure (2) Feeding by G-tube (3) Emphysema lung (4) Pleural effusion on right Respiratory: monitor respiratory rate Cardiac: continue pressors Renal: F/U I&O, keep IV fluid, check electrolytes Infectious Disease: check cultures, continue antibiotics Gastrointestinal: continue feedings/current rate Endocrine: monitor blood sugar, check HgA1C Hematologic: monitor H/H, transfuse if hgb<8.5 Neurologic: PRN Ativan, keep patient comfortable Prophylaxis: Heparin Subjective ROS Limited/Unobtainable: No Allergies: Coded Allergies: No Known Allergies (Unverified , 06/17/16) Objective Last 24 Hour Vital Signs Date Time Temp Pulse Resp B/P Pulse Ox O2 Delivery O2 Flow Rate FiO2 12/24/16 16:40 50 16 40 12/24/16 16:00 40 12/24/16 16:00 98.1 50 18 120/72 100 Mechanical Ventilator 40 12/24/16 15:16 75 12/24/16 14:35 71 16 40 12/24/16 12:36 57 16 40 12/24/16 12:00 98.1 64 19 121/62 100 Mechanical Ventilator 40 12/24/16 12:00 40 12/24/16 11:35 64 12/24/16 11:26 50 16 100 Mechanical Ventilator 40 12/24/16 11:16 40 12/24/16 11:16 51 17 100 Mechanical Ventilator 40 12/24/16 10:39 50 16 40 12/24/16 08:38 76 18 40 12/24/16 08:05 61 12/24/16 08:00 97.9 57 16 123/78 100 Mechanical Ventilator 40 12/24/16 08:00 40 12/24/16 07:10 65 17 40 12/24/16 05:17 72 16 100 Mechanical Ventilator 40 12/24/16 05:02 40 12/24/16 05:01 71 16 100 Mechanical Ventilator 40 12/24/16 05:00 71 16 40 12/24/16 04:20 98.2 58 18 139/79 100 Mechanical Ventilator 40 12/24/16 04:00 40 12/24/16 04:00 59 12/24/16 02:55 55 16 40 12/24/16 01:05 71 16 40 12/24/16 00:00 97.7 73 18 112/76 100 Mechanical Ventilator 40 12/24/16 00:00 40 12/23/16 23:42 77 12/23/16 23:30 64 16 40 12/23/16 22:16 69 16 100 Mechanical Ventilator 40 12/23/16 22:15 40 12/23/16 22:15 77 17 100 Mechanical Ventilator 40 12/23/16 21:00 58 17 40 12/23/16 20:00 98.2 69 16 110/76 100 Mechanical Ventilator 40 12/23/16 20:00 40 12/23/16 20:00 66 12/23/16 19:00 57 17 40 Intake and Output 12/23/16 12/24/16 19:00 07:00 Intake Total 2035 ml 1182 ml Output Total 1300 ml 1300 ml Balance 735 ml -118 ml Free Water 400 ml 100 ml IV Total 935 ml 1082 ml Tube Feeding 700 ml Output Urine Total 1300 ml 1300 ml # Bowel Movements 3 Objective General Appearance: cachetic Lines, tubes and drains: peripheral HEENT: normocephalic, atraumatic Neck: non-tender, normal alignment Respiratory/Chest: chest wall non-tender, lungs clear Breasts: no masses Cardiovascular/Chest: normal peripheral pulses Abdomen: normal bowel sounds, non tender Genitourinary/Rectal: normal genital exam Extremities: normal range of motion Laboratory Tests 12/24/16 05:15: White Blood Count 8.3, Red Blood Count 3.33L, Hemoglobin 9.8L, Hematocrit 29.9L , Mean Corpuscular Volume 90, Mean Corpuscular Hemoglobin 29.5, Mean Corpuscular Hemoglobin Concent 32.8, Red Cell Distribution Width 15.2H, Platelet Count 206, Mean Platelet Volume 6.8, Neutrophils (%) (Auto) 59.4, Lymphocytes (%) (Auto) 24.3, Monocytes (%) (Auto) 7.3, Eosinophils (%) (Auto) 7.9H, Basophils (%) (Auto) 1.1, Sodium Level 134L, Potassium Level 4.1, Chloride Level 96L, Carbon Dioxide Level 25, Anion Gap 13, Blood Urea Nitrogen 15, Creatinine 0.5L, Estimat Glomerular Filtration Rate > 60, Glucose Level 91, Calcium Level 8.2L, Phosphorus Level 3.8, Magnesium Level 1.8 Current Medications Medications (Trade) Dose Ordered Sig/Shraddha Route PRN Reason Start Time Stop Time Status Last Admin Dose Admin Acetaminophen (Tylenol) 650 mg Q4H PRN ORAL FEVER 12/12/16 19:30 01/11/17 19:29 12/23/16 16:30 Albuterol/ Ipratropium (DuoNeb 0.5-3(2.5)mg/3ml) 3 ml Q4H PRN HHN Shortness of Breath 12/21/16 18:00 12/26/16 17:59 12/24/16 11:16 Dextrose (Dextrose 50%) STAT PRN IV Hypoglycemia 12/12/16 19:30 01/11/17 19:29 Diphenhydramine HCl (Benadryl) 25 mg Q6H PRN IVP Itching 12/22/16 10:00 01/21/17 09:59 12/23/16 08:38 Heparin Sodium (Porcine) (Heparin 5000 units/ml) 5,000 units EVERY 12 HOURS SUBQ 12/12/16 21:00 01/11/17 20:59 12/24/16 08:08 Hydrocortisone (Hydrocortisone) 1 applic Q6H PRN TOPIC Itching 12/23/16 10:30 01/22/17 10:29 12/24/16 11:29 Insulin Aspart (NovoLOG) EVERY 6 HOURS SUBQ 12/24/16 12:00 01/23/17 11:59 Ondansetron HCl (Zofran) 4 mg Q6H PRN IVP Nausea & Vomiting 12/12/16 19:30 01/11/17 19:29 Pantoprazole (Protonix) 40 mg DAILY IV 12/13/16 09:00 01/12/17 08:59 12/24/16 08:07 Polyethylene Glycol (Miralax) 17 gm DAILYPRN PRN ORAL Constipation 12/12/16 19:30 01/11/17 19:29 Promethazine HCl/ Codeine 5 ml 5 ml Q4H PRN ORAL For Cough 12/13/16 10:30 01/12/17 10:29 12/22/16 02:44 Sodium Chloride (Sodium Chloride 1000ml bag) 1,000 ml @ 75 mls/hr [id number] IV 12/18/16 22:15 01/17/17 22:14 12/24/16 11:30 REN WRIGHT Dec 24, 2016 18:17
[2016-12-24 20:00] VITALS: BP 118/78
[2016-12-25] VITALS: BP 102/68
[2016-12-25] MEDS: NovoLOG Insulin Flexpen SUBQ SCH ×5 (01:05→23:55)
[2016-12-25 04:00] VITALS: BP 115/71
[2016-12-25] MEDS: Promethazine/Codeine 5ml UD ORAL PRN (06:22)
[2016-12-25] MEDS: Hydrocortisone 0.5% Cream 30gm TOPIC PRN ×2 (06:53→12:36)
[2016-12-25 08:00] VITALS: BP 119/81
[2016-12-25] MEDS: Pantoprazole Inj IV SCH (08:16)
[2016-12-25] MEDS: Heparin 5000 units/ml inj SUBQ SCH (08:17)
--- NOTE | 2016-12-25 10:20 | GI Progress Note ---
Assessment/Plan Problems: (1) Mass of cecum ICD Codes: K63.9 - Disease of intestine, unspecified SNOMED: 079112647 (2) Severe anemia ICD Codes: D64.9 - Anemia, unspecified SNOMED: 543934629 (3) Colonic mass ICD Codes: K63.9 - Disease of intestine, unspecified SNOMED: 262847885 (4) Gastric mass ICD Codes: K31.9 - Disease of stomach and duodenum, unspecified SNOMED: 851556614 (5) LFTs abnormal ICD Codes: R79.89 - Other specified abnormal findings of blood chemistry SNOMED: 721259697 (6) DVT (deep venous thrombosis) ICD Codes: I82.409 - Acute embolism and thrombosis of unspecified deep veins of unspecified lower extremity SNOMED: 433380592 (7) ENMA (iron deficiency anemia) ICD Codes: D50.9 - Iron deficiency anemia, unspecified SNOMED: 41894267 (8) Dysphagia ICD Codes: R13.10 - Dysphagia, unspecified SNOMED: 46636895, 452480606 (9) Anemia ICD Codes: D64.9 - Anemia, unspecified SNOMED: 823954238 Status: unchanged Status Narrative Discussed with Dr. Quiroz. Assessment/Plan S/P COLONOSCOPY SUMMARY OF FINDINGS: 1. Cecal mass status post biopsy, see above for details. 2. 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 cannot exclude malignancy deep in tumor remaining polyps - tubular adenoma no high grade dysplasia PLAN: surgical recs >> surgery schedule tomorrow, see surgical note. monitor H&H, transfuse prn GTFs per surgery, NPO @ [facility] ppi hydrocortisone prn fu labs recommend patient for f/u colonoscopy given multiple polyps Subjective Subjective limited, nonverbal Objective Last 24 Hour Vital Signs Date Time Temp Pulse Resp B/P Pulse Ox O2 Delivery O2 Flow Rate FiO2 12/25/16 09:02 81 18 40 12/25/16 08:00 40 12/25/16 08:00 98.6 85 19 119/81 100 Mechanical Ventilator 12/25/16 07:57 77 12/25/16 06:52 76 18 40 12/25/16 05:11 85 18 40 12/25/16 04:00 98.8 69 15 115/71 100 Trach Collar 12/25/16 04:00 40 12/25/16 04:00 84 12/25/16 03:12 65 17 40 12/25/16 01:10 78 16 40 12/25/16 00:00 97.5 78 12 102/68 100 Trach Collar 12/25/16 00:00 74 12/25/16 00:00 40 12/24/16 23:16 79 19 40 12/24/16 21:14 70 18 40 12/24/16 20:00 98.3 80 18 118/78 100 Mechanical Ventilator 12/24/16 20:00 40 12/24/16 20:00 82 12/24/16 19:14 81 18 40 12/24/16 16:40 50 16 40 12/24/16 16:00 40 12/24/16 16:00 98.1 50 18 120/72 100 Mechanical Ventilator 40 12/24/16 15:16 75 12/24/16 14:35 71 16 40 12/24/16 12:36 57 16 40 12/24/16 12:00 98.1 64 19 121/62 100 Mechanical Ventilator 40 12/24/16 12:00 40 12/24/16 11:35 64 12/24/16 11:26 50 16 100 Mechanical Ventilator 40 12/24/16 11:16 40 12/24/16 11:16 51 17 100 Mechanical Ventilator 40 12/24/16 10:39 50 16 40 Intake and Output 12/24/16 12/25/16 19:00 07:00 Intake Total 862.5 ml 1595 ml Output Total 1350 ml 1262 ml Balance -487.5 ml 333 ml IV Total 862.5 ml 825 ml Tube Feeding 0 ml 770 ml Output Urine Total 1350 ml 1262 ml # Bowel Movements 2 Height (Feet): 5 Height (Inches): 9.00 Weight (Pounds): 133 General Appearance: no apparent distress, alert Cardiovascular: normal rate Respiratory/Chest: no respiratory distress, other - mech vent Abdominal Exam: GT site - c/d/i Angeles Galloway N.P. Dec 25, 2016 10:20
[2016-12-25] MEDS: DuoNeb 0.5-3(2.5)mg/3ml neb HHN PRN ×3 (10:35→19:48)
--- NOTE | 2016-12-25 11:24 | General Surgery Progress Note ---
General Surgery-Progress Note Subjective Additional Comments patient seen and examined at bedside. no acute events. resting comfortable. no complaints. ready for surgery. Objective Last 24 Hour Vital Signs Date Time Temp Pulse Resp B/P Pulse Ox O2 Delivery O2 Flow Rate FiO2 12/25/16 10:35 40 12/25/16 10:35 75 16 100 Mechanical Ventilator 40 12/25/16 10:30 74 20 40 12/25/16 09:02 81 18 40 12/25/16 08:00 40 12/25/16 08:00 98.6 85 19 119/81 100 Mechanical Ventilator 12/25/16 07:57 77 12/25/16 06:52 76 18 40 12/25/16 05:11 85 18 40 12/25/16 04:00 98.8 69 15 115/71 100 Trach Collar 12/25/16 04:00 40 12/25/16 04:00 84 12/25/16 03:12 65 17 40 12/25/16 01:10 78 16 40 12/25/16 00:00 97.5 78 12 102/68 100 Trach Collar 12/25/16 00:00 74 12/25/16 00:00 40 12/24/16 23:16 79 19 40 12/24/16 21:14 70 18 40 12/24/16 20:00 98.3 80 18 118/78 100 Mechanical Ventilator 12/24/16 20:00 40 12/24/16 20:00 82 12/24/16 19:14 81 18 40 12/24/16 16:40 50 16 40 12/24/16 16:00 40 12/24/16 16:00 98.1 50 18 120/72 100 Mechanical Ventilator 40 12/24/16 15:16 75 12/24/16 14:35 71 16 40 12/24/16 12:36 57 16 40 12/24/16 12:00 98.1 64 19 121/62 100 Mechanical Ventilator 40 12/24/16 12:00 40 12/24/16 11:35 64 12/24/16 11:26 50 16 100 Mechanical Ventilator 40 I&O Intake and Output 12/24/16 12/25/16 19:00 07:00 Intake Total 862.5 ml 1595 ml Output Total 1350 ml 1262 ml Balance -487.5 ml 333 ml IV Total 862.5 ml 825 ml Tube Feeding 0 ml 770 ml Output Urine Total 1350 ml 1262 ml # Bowel Movements 2 Cardiovascular: RSR Respiratory: clear Abdomen: soft, non-tender, present bowel sounds Extremities: no edema, no tenderness, no cyanosis Plan Problems: (1) Mass of colon Assessment & Plan: 66M large colonic mass and multiple colonic polyps. Recent colonoscopy(s) performed and biopsy of mass taken as well as multiple other polyps. 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 Mass seen on two prior abdominal CT scans (06/2016 and 11/2016); large and growing. has high grade dysplasia on path. Discussed findings with patient. He would like surgical intervention. Discussed risks, benefits, and alternatives to surgical intervention with patient. He expressed understanding and desire to proceed. Will try and schedule for surgery this week. 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 Can monitor remaining polyps with colonoscopy guidelines specify. laparoscopic vs open right austin-colectomy TOMORROW NPO p MN (hold tube feeds at midnight) AM LABS Consent Landon Farfan Dec 25, 2016 11:24
--- NOTE | 2016-12-25 11:42 | Internal Med Progress Note ---
Subjective Date of Service: Dec 25, 2016 Physician Name Verdin,Tadeo Attending Physician Steve Rader MD Current Medications Medications (Trade) Dose Ordered Sig/Shraddha Route PRN Reason Start Time Stop Time Status Last Admin Dose Admin Acetaminophen (Tylenol) 650 mg Q4H PRN ORAL FEVER 12/12/16 19:30 01/11/17 19:29 12/23/16 16:30 Albuterol/ Ipratropium (DuoNeb 0.5-3(2.5)mg/3ml) 3 ml Q4H PRN HHN Shortness of Breath 12/21/16 18:00 12/26/16 17:59 12/25/16 10:35 Dextrose (Dextrose 50%) STAT PRN IV Hypoglycemia 12/12/16 19:30 01/11/17 19:29 Diphenhydramine HCl (Benadryl) 25 mg Q6H PRN IVP Itching 12/22/16 10:00 01/21/17 09:59 12/23/16 08:38 Hydrocortisone (Hydrocortisone) 1 applic Q6H PRN TOPIC Itching 12/23/16 10:30 01/22/17 10:29 12/25/16 06:53 Insulin Aspart (NovoLOG) EVERY 6 HOURS SUBQ 12/24/16 12:00 01/23/17 11:59 12/25/16 01:05 Ondansetron HCl (Zofran) 4 mg Q6H PRN IVP Nausea & Vomiting 12/12/16 19:30 01/11/17 19:29 Pantoprazole (Protonix) 40 mg DAILY IV 12/13/16 09:00 01/12/17 08:59 12/25/16 08:16 Polyethylene Glycol (Miralax) 17 gm DAILYPRN PRN ORAL Constipation 12/12/16 19:30 01/11/17 19:29 Promethazine HCl/ Codeine 5 ml 5 ml Q4H PRN ORAL For Cough 12/13/16 10:30 01/12/17 10:29 12/25/16 06:22 Sodium Chloride (Sodium Chloride 1000ml bag) 1,000 ml @ 75 mls/hr [id number] IV 12/18/16 22:15 01/17/17 22:14 12/25/16 00:58 Allergies: Coded Allergies: No Known Allergies (Unverified , 06/17/16) ROS Limited/Unobtainable: Yes Subjective 66 YO M admitted for shortness of breath and tachycardia. Intubated and sedated. JORDAN. Cover for Int Med-Dr Rader. Objective Last Vital Signs Date Time Temp Pulse Resp B/P Pulse Ox O2 Delivery O2 Flow Rate FiO2 12/25/16 10:35 40 12/25/16 10:35 75 16 100 Mechanical Ventilator 12/25/16 08:00 98.6 119/81 12/19/16 01:52 80.0 Intake and Output 12/24/16 12/25/16 19:00 07:00 Intake Total 862.5 ml 1595 ml Output Total 1350 ml 1262 ml Balance -487.5 ml 333 ml IV Total 862.5 ml 825 ml Tube Feeding 0 ml 770 ml Output Urine Total 1350 ml 1262 ml # Bowel Movements 2 Objective General Appearance: lethargic, thin EENT: PERRL/EOMI, normal ENT inspection Neck: Trach; non-tender, normal alignment, supple Cardiovascular: normal peripheral pulses, regular rhythm, no gallop/murmur, no JVD, tachycardia Respiratory/Chest: Mech vent; chest wall non-tender, crackles/rales, rhonchi - bilaterally, expiratory wheezing Abdomen: normal bowel sounds, non tender, soft, no organomegaly, no mass Neurologic: ticketer II-XII grossly normal, no motor/sensory deficits Skin: normal pigmentation, warm/dry Assessment/Plan Problem List: (1) UTI (urinary tract infection) Assessment & Plan: Acinetobacter Baumanii. See ID note. D/C vanco and amikacin. Continue tygacil day #03/16 (2) Tachycardia (3) SOB (shortness of breath) Assessment & Plan: Due to pneurmonia. (4) Hypertension (5) Acute and chronic respiratory failure Assessment & Plan: Currently on Mech vent. See pulmonary note. (6) Emphysema lung (7) Lung abscess (8) Mass of colon (9) Pneumonia Assessment & Plan: see pulmonary and ID note. (10) Mass of cecum Assessment & Plan: See surgery note. S/P Colonoscopy 12/17/16; repeat . Right hemicolectomy scheduled for 12/26/16 Status: not improved TADEO VERDIN Dec 25, 2016 11:42
[2016-12-25 12:00] VITALS: BP 100/69
--- NOTE | 2016-12-25 12:24 | Pulmonology Progress Note ---
Assessment/Plan Problems: (1) Acute and chronic respiratory failure (2) Feeding by G-tube (3) Emphysema lung (4) Pleural effusion on right Respiratory: monitor respiratory rate, adjust FIO2, CXR Cardiac: continue to monitor HR/BP Renal: F/U I&O Infectious Disease: check cultures Gastrointestinal: continue feedings/current rate, hold feedings Endocrine: monitor blood sugar, check HgA1C, continue sliding scale insulin Hematologic: transfuse if hgb<8.5 Neurologic: PRN Ativan, PRN Morphine, keep patient comfortable Affect: PRN ativan Prophylaxis: Heparin Disposition: keep in ICU Notes Reviewed: bolt header, cardio, renal Discussed with: consultants, outsole caser Subjective ROS Limited/Unobtainable: No Constitutional: Reports: no symptoms HEENT: Repors: no symptoms Respiratory: Reports: no symptoms Allergies: Coded Allergies: No Known Allergies (Unverified , 06/17/16) Objective Last 24 Hour Vital Signs Date Time Temp Pulse Resp B/P Pulse Ox O2 Delivery O2 Flow Rate FiO2 12/25/16 12:00 40 12/25/16 10:35 40 12/25/16 10:35 75 16 100 Mechanical Ventilator 40 12/25/16 10:30 74 20 40 12/25/16 09:02 81 18 40 12/25/16 08:00 40 12/25/16 08:00 98.6 85 19 119/81 100 Mechanical Ventilator 12/25/16 07:57 77 12/25/16 06:52 76 18 40 12/25/16 05:11 85 18 40 12/25/16 04:00 98.8 69 15 115/71 100 Trach Collar 12/25/16 04:00 40 12/25/16 04:00 84 12/25/16 03:12 65 17 40 12/25/16 01:10 78 16 40 12/25/16 00:00 97.5 78 12 102/68 100 Trach Collar 12/25/16 00:00 74 12/25/16 00:00 40 12/24/16 23:16 79 19 40 12/24/16 21:14 70 18 40 12/24/16 20:00 98.3 80 18 118/78 100 Mechanical Ventilator 12/24/16 20:00 40 12/24/16 20:00 82 12/24/16 19:14 81 18 40 12/24/16 16:40 50 16 40 12/24/16 16:00 40 12/24/16 16:00 98.1 50 18 120/72 100 Mechanical Ventilator 40 12/24/16 15:16 75 12/24/16 14:35 71 16 40 12/24/16 12:36 57 16 40 Intake and Output 12/24/16 12/25/16 19:00 07:00 Intake Total 862.5 ml 1595 ml Output Total 1350 ml 1262 ml Balance -487.5 ml 333 ml IV Total 862.5 ml 825 ml Tube Feeding 0 ml 770 ml Output Urine Total 1350 ml 1262 ml # Bowel Movements 2 Objective General Appearance: cachetic Lines, tubes and drains: peripheral HEENT: normocephalic, atraumatic Neck: non-tender, normal alignment Respiratory/Chest: chest wall non-tender, lungs clear Breasts: no masses Cardiovascular/Chest: normal peripheral pulses Abdomen: normal bowel sounds, non tender Genitourinary/Rectal: normal genital exam Extremities: normal range of motion Current Medications Medications (Trade) Dose Ordered Sig/Shraddha Route PRN Reason Start Time Stop Time Status Last Admin Dose Admin Acetaminophen (Tylenol) 650 mg Q4H PRN ORAL FEVER 12/12/16 19:30 01/11/17 19:29 12/23/16 16:30 Albuterol/ Ipratropium (DuoNeb 0.5-3(2.5)mg/3ml) 3 ml Q4H PRN HHN Shortness of Breath 12/21/16 18:00 12/26/16 17:59 12/25/16 10:35 Dextrose (Dextrose 50%) STAT PRN IV Hypoglycemia 12/12/16 19:30 01/11/17 19:29 Diphenhydramine HCl (Benadryl) 25 mg Q6H PRN IVP Itching 12/22/16 10:00 01/21/17 09:59 12/23/16 08:38 Hydrocortisone (Hydrocortisone) 1 applic Q6H PRN TOPIC Itching 12/23/16 10:30 01/22/17 10:29 12/25/16 06:53 Insulin Aspart (NovoLOG) EVERY 6 HOURS SUBQ 12/24/16 12:00 01/23/17 11:59 12/25/16 01:05 Ondansetron HCl (Zofran) 4 mg Q6H PRN IVP Nausea & Vomiting 12/12/16 19:30 01/11/17 19:29 Pantoprazole (Protonix) 40 mg DAILY IV 12/13/16 09:00 01/12/17 08:59 12/25/16 08:16 Polyethylene Glycol (Miralax) 17 gm DAILYPRN PRN ORAL Constipation 12/12/16 19:30 01/11/17 19:29 Promethazine HCl/ Codeine 5 ml 5 ml Q4H PRN ORAL For Cough 12/13/16 10:30 01/12/17 10:29 12/25/16 06:22 Sodium Chloride (Sodium Chloride 1000ml bag) 1,000 ml @ 75 mls/hr [id number] IV 12/18/16 22:15 01/17/17 22:14 12/25/16 00:58 REN WRIGHT Dec 25, 2016 12:24
--- NOTE | 2016-12-25 12:57 | Cardiac Electrophysiology PN ---
Assessment/Plan Status Narrative Technically difficult study due to poor acoustic windows. Normal left ventricular chamber size, systolic function and wall motion. Left ventricular ejection fraction estimated to be 55-60 %. No evidence of left ventricular hypertrophy. No evidence of pericardial fat or effusion. Mild bi-atrial enlargement by 2D. Focal aortic valve sclerosis with adequate cusp excursion Thickened mitral valve leaflets with normal excursion. Mitral annulus and aortic root calcification. Pulmonic valve is well visualized. Normal tricuspid valve structure. IVC is normal in size with minimal physiologic collapse. RA pressure of 10mmHg. Assessment/Plan 1. Sinus tachycardia due to sepsis and respiratory failure. HR better. 2. Hypotension, resolved. 3. Severe chronic obstructive pulmonary disease and pulmonary hypertension.On Vent. 4. Pneumonia, on IV antibiotics. 5. Ventilator-dependent respiratory failure, status post tracheostomy on vent 6. Status post percutaneous endoscopic gastrostomy placement. 7. Cecal mass, status post transfusion. S/P EGD and colonoscopy and polyp removal twice. Mass seen on two prior abdominal CT scans (06/2016 and 11/2016) large and growing. Tubular adenoma with high grade dysplasia . Laparoscopic vs open right austin- colectomy TOMORROW to remove large cecal tumor with high grade dysplasia . No cardiac intervention necessary prior to surgery. EF 55-60%. Avoid hypotension. 8. Pleural effusion, status post thoracentesis on 11/21/2016 and 12/14/16 DW RN Subjective Subjective Alert in JORDAN on vent via trach. No significant change.Remained in SR.Able to talk despite tracheostomy.No chest pain or SOB. Objective Last 24 Hour Vital Signs Date Time Temp Pulse Resp B/P Pulse Ox O2 Delivery O2 Flow Rate FiO2 12/25/16 12:39 71 18 40 12/25/16 12:00 40 12/25/16 12:00 97.7 85 20 100/69 100 Mechanical Ventilator 12/25/16 10:35 40 12/25/16 10:35 75 16 100 Mechanical Ventilator 40 12/25/16 10:30 74 20 40 12/25/16 09:02 81 18 40 12/25/16 08:00 40 12/25/16 08:00 98.6 85 19 119/81 100 Mechanical Ventilator 12/25/16 07:57 77 12/25/16 06:52 76 18 40 12/25/16 05:11 85 18 40 12/25/16 04:00 98.8 69 15 115/71 100 Trach Collar 12/25/16 04:00 40 12/25/16 04:00 84 12/25/16 03:12 65 17 40 12/25/16 01:10 78 16 40 12/25/16 00:00 97.5 78 12 102/68 100 Trach Collar 12/25/16 00:00 74 12/25/16 00:00 40 12/24/16 23:16 79 19 40 12/24/16 21:14 70 18 40 12/24/16 20:00 98.3 80 18 118/78 100 Mechanical Ventilator 12/24/16 20:00 40 12/24/16 20:00 82 12/24/16 19:14 81 18 40 12/24/16 16:40 50 16 40 12/24/16 16:00 40 12/24/16 16:00 98.1 50 18 120/72 100 Mechanical Ventilator 40 12/24/16 15:16 75 12/24/16 14:35 71 16 40 Intake and Output 12/24/16 12/25/16 19:00 07:00 Intake Total 862.5 ml 1595 ml Output Total 1350 ml 1262 ml Balance -487.5 ml 333 ml IV Total 862.5 ml 825 ml Tube Feeding 0 ml 770 ml Output Urine Total 1350 ml 1262 ml # Bowel Movements 2 Objective HEAD AND NECK: No JVD.Tracheostomy intact. LUNGS: Have coarse rhonchi. CARDIOVASCULAR: Tachycardic S1, S2 with no gallop or murmur. ABDOMEN: Soft. EXTREMITIES: One plus edema. OSWALD HILLS Dec 25, 2016 12:57
--- NOTE | 2016-12-25 13:05 | Infectious Diseases Prog Note ---
Assessment/Plan Assessment/Plan ASSESSMENT: 66 y/o male with: // Probable recurrent HCAP / VAP r/o empyema - SCx : not sent - CXR 12/13: Fairly extensive infiltrate throughout the right lung persists, may be slightly worse. Left lung and pleural space remain clear - h/o MDR ACB, PSA - CT 11/14 :Extensive pneumonia involving both lungs as described above. 5-6 cm cavitary focus suspicious for lung abscess in the right upper lobe. // Recurrent pleural effusion no evid of empyema or malignancy - SP thoracentesis 12/13 - - SP thoracentesis 11/21 neg empyema // Recurrent MDR-ACB UTI - h/o yeast, VRE // Leukocytosis - SP , afebrile ( DVT, probable CA contributing ) // HIV and Hep B/C : neg // Colon mass,TV adenoma SP Colonoscopy with biopsy and snare polypectomy 12/18 CT: Large cecal mass and other polypoid colonic masses, detailed previously , again demonstrated // Acute on chronic VDRF SP trach, PEG - h/o COPD // Severe pulmonary HTN / grade I diastolic dysfunction / mod TR // Pulmonary nodules // h/o chronic RLE DVT - repeat doppler neg // Thrombocytosis // [place] resident // MDRO colonized // NKDA // Full Code PLAN: monitor pt off of AB Rx - 12/24 SP tygacil d# 10 SP IV vancomycin, amikacin d# 2 - monitor CBC, temperatures - monitor BMP - monitor CXR - vent support, trach care, aspiration precautions - as per GenSx: need excision of colon mass, : possible Sx this wk Subjective Constitutional: Denies: anorexia, chills, drenching sweats, fatigue, fever, no symptoms, other Allergies: Coded Allergies: No Known Allergies (Unverified , 06/17/16) Subjective no new complain Objective Vital Signs Last 24 Hour Vital Signs Date Time Temp Pulse Resp B/P Pulse Ox O2 Delivery O2 Flow Rate FiO2 12/25/16 12:39 71 18 40 12/25/16 12:00 40 12/25/16 12:00 97.7 85 20 100/69 100 Mechanical Ventilator 12/25/16 10:35 40 12/25/16 10:35 75 16 100 Mechanical Ventilator 40 12/25/16 10:30 74 20 40 12/25/16 09:02 81 18 40 12/25/16 08:00 40 12/25/16 08:00 98.6 85 19 119/81 100 Mechanical Ventilator 12/25/16 07:57 77 12/25/16 06:52 76 18 40 12/25/16 05:11 85 18 40 12/25/16 04:00 98.8 69 15 115/71 100 Trach Collar 12/25/16 04:00 40 12/25/16 04:00 84 12/25/16 03:12 65 17 40 12/25/16 01:10 78 16 40 12/25/16 00:00 97.5 78 12 102/68 100 Trach Collar 12/25/16 00:00 74 12/25/16 00:00 40 12/24/16 23:16 79 19 40 12/24/16 21:14 70 18 40 12/24/16 20:00 98.3 80 18 118/78 100 Mechanical Ventilator 12/24/16 20:00 40 12/24/16 20:00 82 12/24/16 19:14 81 18 40 12/24/16 16:40 50 16 40 12/24/16 16:00 40 12/24/16 16:00 98.1 50 18 120/72 100 Mechanical Ventilator 40 12/24/16 15:16 75 12/24/16 14:35 71 16 40 Height (Feet): 5 Height (Inches): 9.00 Weight (Pounds): 133 HEENT: mucous membranes moist Respiratory/Chest: normal breath sounds Cardiovascular: normal rate Abdomen: no organomegaly Current Medications Medications (Trade) Dose Ordered Sig/Shraddha Route PRN Reason Start Time Stop Time Status Last Admin Dose Admin Acetaminophen (Tylenol) 650 mg Q4H PRN ORAL FEVER 12/12/16 19:30 01/11/17 19:29 12/23/16 16:30 Albuterol/ Ipratropium (DuoNeb 0.5-3(2.5)mg/3ml) 3 ml Q4H PRN HHN Shortness of Breath 12/21/16 18:00 12/26/16 17:59 12/25/16 10:35 Dextrose (Dextrose 50%) STAT PRN IV Hypoglycemia 12/12/16 19:30 01/11/17 19:29 Diphenhydramine HCl (Benadryl) 25 mg Q6H PRN IVP Itching 12/22/16 10:00 01/21/17 09:59 12/23/16 08:38 Hydrocortisone (Hydrocortisone) 1 applic Q6H PRN TOPIC Itching 12/23/16 10:30 01/22/17 10:29 12/25/16 12:36 Insulin Aspart (NovoLOG) EVERY 6 HOURS SUBQ 12/24/16 12:00 01/23/17 11:59 12/25/16 01:05 Ondansetron HCl (Zofran) 4 mg Q6H PRN IVP Nausea & Vomiting 12/12/16 19:30 01/11/17 19:29 Pantoprazole (Protonix) 40 mg DAILY IV 12/13/16 09:00 01/12/17 08:59 12/25/16 08:16 Polyethylene Glycol (Miralax) 17 gm DAILYPRN PRN ORAL Constipation 12/12/16 19:30 01/11/17 19:29 Promethazine HCl/ Codeine 5 ml 5 ml Q4H PRN ORAL For Cough 12/13/16 10:30 01/12/17 10:29 12/25/16 06:22 Sodium Chloride (Sodium Chloride 1000ml bag) 1,000 ml @ 75 mls/hr [id number] IV 12/18/16 22:15 01/17/17 22:14 12/25/16 00:58 KIMBERLEE HINKLE M.D. Dec 25, 2016 13:05
--- NOTE | 2016-12-25 14:25 | Endoscopy Procedure Note ---
Endoscopy Procedure Note Indication for Procedure: colon polyps Procedures Performed: colonoscopy Operative Findings/Diagnosis: same Specimen: yes Pt Tolerated Procedure Well: Yes Estimated Blood Loss: none Anesthesiologist: prashant Anesthesia: MAC Implant(s) used?: No 50 yrs or older w/o bx or poly: Not Applicable 10yrs. F/U not recommended: Not Applicable JULIANNE ESTEVEZ Dec 25, 2016 14:25
[2016-12-25 15:06] LABS: BASOPHILS % (AUTO) 0.9 % (0.0-2.0); EOSINOPHILS % (AUTO) 6.9 % (0.0-3.0); MEAN CORPUSCULAR HEMOGLOBIN 30.4 PG (27.0-31.0); MEAN CORPUSCULAR HGB CONC 32.9 G/DL (32.0-36.0); MEAN CORPUSCULAR VOLUME 93 FL (80-99); MEAN PLATELET VOLUME 7.8 FL (6.5-10.1); MONOCYTES % (AUTO) 5.9 % (1.0-10.0); NEUTROPHILS % (AUTO) 73.5 % (45.0-75.0); PLATELET COUNT 252 K/UL (150-450); RED BLOOD COUNT 3.47 M/UL (4.70-6.10); RED CELL DISTRIBUTION WIDTH 15.7 % (11.6-14.8); WHITE BLOOD COUNT 9.8 K/UL (4.8-10.8)
[2016-12-25 15:16] LABS: INR 1.4 (0.9-1.1)
[2016-12-25 15:20] LABS: ANION GAP 11 (5-15); CALCIUM 7.9 mg/dL (8.6-10.2); CARBON DIOXIDE 27 mEQ/L (20-30); CHLORIDE 96 mEQ/L (98-107); CREATININE 0.5 mg/dL (0.7-1.2); GLOMERULAR FILTRATION RATE > 60 mL/min (>60); HEMOLYSIS 0; POTASSIUM 3.9 mEQ/L (3.4-4.9); SODIUM 134 mEQ/L (135-145)
[2016-12-25 16:00] VITALS: BP 99/61
[2016-12-25 20:00] VITALS: BP 101/74
[2016-12-26] VITALS (14 sets, daily range): BP systolic 79–121; BP diastolic 55–82
[2016-12-26] MEDS: DuoNeb 0.5-3(2.5)mg/3ml neb HHN PRN (05:34)
[2016-12-26 05:56] LABS: BASOPHILS % (AUTO) 0.9 % (0.0-2.0); EOSINOPHILS % (AUTO) 2.9 % (0.0-3.0); LYMPHOCYTES % (AUTO) 8.6 % (20.0-45.0); MEAN CORPUSCULAR HEMOGLOBIN 30.9 PG (27.0-31.0); MEAN CORPUSCULAR VOLUME 93 FL (80-99); MEAN PLATELET VOLUME 7.1 FL (6.5-10.1); NEUTROPHILS % (AUTO) 81.7 % (45.0-75.0); PLATELET COUNT 235 K/UL (150-450); RED BLOOD COUNT 3.58 M/UL (4.70-6.10); RED CELL DISTRIBUTION WIDTH 15.6 % (11.6-14.8); WHITE BLOOD COUNT 12.6 K/UL (4.8-10.8)
[2016-12-26] MEDS: NovoLOG Insulin Flexpen SUBQ SCH ×4 (05:58→23:51)
[2016-12-26 06:13] LABS: INR 1.4 (0.9-1.1); PROTHROMBIN TIME 14.3 SEC (9.30-11.50)
[2016-12-26 06:26] LABS: ALANINE AMINOTRANSFERASE 13 U/L (3-41); ALBUMIN/GLOBULIN RATIO 0.2 (1.0-2.7); ANION GAP 11 (5-15); ASPARTATE AMINO TRANSFERASE 16 U/L (5-40); CALCIUM 8.1 mg/dL (8.6-10.2); CARBON DIOXIDE 26 mEQ/L (20-30); CHLORIDE 98 mEQ/L (98-107); CREATININE 0.5 mg/dL (0.7-1.2); GLOMERULAR FILTRATION RATE > 60 mL/min (>60); HEMOLYSIS 22; POTASSIUM 4.4 mEQ/L (3.4-4.9); SODIUM 135 mEQ/L (135-145); TOTAL PROTEIN 7.3 g/dL (6.6-8.7)
[2016-12-26] MEDS: Pantoprazole Inj IV SCH (08:00)
[2016-12-26] MEDS: Hydrocortisone 0.5% Cream 30gm TOPIC PRN (08:04)
[2016-12-26] MEDS ORDERED: Dexamethasone 4mg/ml vial ONE (10:30)
[2016-12-26] MEDS ORDERED: Lidocaine 1% MPF 10mg/ml 5ml ONE (10:30)
[2016-12-26] MEDS ORDERED: Nimbex 2mg/ml Inj 10ML IVP ONE (10:30)
[2016-12-26] MEDS ORDERED: Midazolam 2mg/2ml Inj ONE (10:30)
[2016-12-26] MEDS ORDERED: Propofol 10mg/ml 20ml IV ONE (10:30)
[2016-12-26] MEDS ORDERED: NS Irrig 1000ml ONE (10:30)
[2016-12-26] MEDS ORDERED: LR 1000ml ONE (10:30)
[2016-12-26] MEDS ORDERED: fentaNYL 250mcg/5ml ONE (10:30)
[2016-12-26] MEDS ORDERED: Sterile Water Irrig 1000ml IRRIG ONE (10:30)
[2016-12-26] MEDS ORDERED: Bupivacaine w/Epi 0.25% 30ml Vial INJ ONE (10:58)
[2016-12-26] MEDS ORDERED: NS Irrig 1000ml IRRIG ONE (11:07)
--- NOTE | 2016-12-26 11:31 | Anethesia Preoperative Eval ---
Anesthesia Pre-op PMH/ROS General Date of Evaluation: Dec 26, 2016 Anesthesiologist: Angel ASA Score: ASA 4 Mallampati Score Class I : Soft palate, uvula, fauces, pillars visible Class II: Soft palate, uvula, fauces visible Class III: Soft palate, base of uvula visible Class IV: Only hard plate visible Mallampati Classification: Class II Surgeon: Desi Diagnosis: colon Cancer Surgical Procedure: Laparoscopic right colectomy Anesthesia History: none Family History: no anesthesia problems Allergies: Coded Allergies: No Known Allergies (Unverified , 06/17/16) Medications: see eMAR Past Medical History Cardiovascular: Reports: HTN, arrhythmia, Denies: CAD, VA, other, valve dz Pulmonary: Reports: COPD, other - resp failure-vent dependent, Denies: HARSH, asthma Gastrointestinal/Genitourinary: Denies: CRI, ESRD, GERD, other Neurologic/Psychiatric: Reports: CVA, depression/anxiety, Denies: TIA, dementia, other Endocrine: Denies: DM, hypothyroidism, other, steroids HEENT: Denies: [place] (L), [place] (R), cataract (L), cataract (R), glaucoma, other Hematology/Immune: Reports: DVT, anemia, Denies: bleeding disorder, other Musculoskeletal/Integumentary: Reports: DJD, OA, Denies: DDD, RA, edema, other Other: other - malnourished PSxH Narrative: PEG and trach Anesthesia Pre-op Phys. Exam Physician Exam Last Vital Signs Date Time Temp Pulse Resp B/P Pulse Ox O2 Delivery O2 Flow Rate FiO2 12/26/16 09:07 95 18 40 12/26/16 08:00 98.1 98/61 100 Mechanical Ventilator 12/26/16 04:00 80.0 Constitutional: NAD, other - awake, alert, responding to commands Cardiovascular: RRR Respiratory: CTA Airway Exam Mallampati Score: Class III - traceostmy in place MO: full Neck: stiff ROM: limited Teeth: missing, intact, broken Anesthesia Pre-op A/P Labs Hematology Test 12/25/16 14:30 12/26/16 04:30 White Blood Count 9.8 K/UL (4.8-10.8) 12.6 K/UL (4.8-10.8) H Red Blood Count 3.47 M/UL (4.70-6.10) L 3.58 M/UL (4.70-6.10) L Hemoglobin 10.6 G/DL (14.2-18.0) L 11.1 G/DL (14.2-18.0) L Hematocrit 32.1 % (42.0-52.0) L 33.5 % (42.0-52.0) L Mean Corpuscular Volume 93 FL (80-99) 93 FL (80-99) Mean Corpuscular Hemoglobin 30.4 PG (27.0-31.0) 30.9 PG (27.0-31.0) Mean Corpuscular Hemoglobin Concent 32.9 G/DL (32.0-36.0) 33.0 G/DL (32.0-36.0) Red Cell Distribution Width 15.7 % (11.6-14.8) H 15.6 % (11.6-14.8) H Platelet Count 252 K/UL (150-450) 235 K/UL (150-450) Mean Platelet Volume 7.8 FL (6.5-10.1) 7.1 FL (6.5-10.1) Neutrophils (%) (Auto) 73.5 % (45.0-75.0) 81.7 % (45.0-75.0) H Lymphocytes (%) (Auto) 13.0 % (20.0-45.0) L 8.6 % (20.0-45.0) L Monocytes (%) (Auto) 5.9 % (1.0-10.0) 6.0 % (1.0-10.0) Eosinophils (%) (Auto) 6.9 % (0.0-3.0) H 2.9 % (0.0-3.0) Basophils (%) (Auto) 0.9 % (0.0-2.0) 0.9 % (0.0-2.0) Coagulation Test 12/25/16 14:30 12/26/16 04:30 Prothrombin Time 15.0 SEC (9.30-11.50) H 14.3 SEC (9.30-11.50) H Prothromb Time International Ratio 1.4 (0.9-1.1) H 1.4 (0.9-1.1) H Activated Partial Thromboplast Time 42 SEC (23-33) H 38 SEC (23-33) H Chemistry Test 12/25/16 14:30 12/26/16 04:30 Sodium Level 134 mEQ/L (135-145) L 135 mEQ/L (135-145) Potassium Level 3.9 mEQ/L (3.4-4.9) 4.4 mEQ/L (3.4-4.9) Chloride Level 96 mEQ/L (98-107) L 98 mEQ/L (98-107) Carbon Dioxide Level 27 mEQ/L (20-30) 26 mEQ/L (20-30) Anion Gap 11 (5-15) 11 (5-15) Blood Urea Nitrogen 10 mg/dL (7-23) 8 mg/dL (7-23) Creatinine 0.5 mg/dL (0.7-1.2) L 0.5 mg/dL (0.7-1.2) L Estimat Glomerular Filtration Rate > 60 mL/min (>60) > 60 mL/min (>60) Glucose Level 82 mg/dL (74-106) 69 mg/dL (74-106) L Calcium Level 7.9 mg/dL (8.6-10.2) L 8.1 mg/dL (8.6-10.2) L Total Bilirubin 0.3 mg/dL (0.0-1.2) Aspartate Amino Transf (AST/SGOT) 16 U/L (5-40) Alanine Aminotransferase (ALT/SGPT) 13 U/L (3-41) Alkaline Phosphatase 126 U/L (40-129) Total Protein 7.3 g/dL (6.6-8.7) Albumin 1.6 g/dL (3.5-5.2) L Globulin 5.7 g/dL Albumin/Globulin Ratio 0.2 (1.0-2.7) L Studies Pre-op Studies: EKG - sr Risk Assessment & Plan Assessment: ASA IV Plan: GA Status Change Before Surgery: No Pre-Antibiotics Drug: Ancef 1g Given Within 1 Hr of Incision: Yes Time Given: 11:00 ALIN LOVELL M.D. Dec 26, 2016 11:31
--- NOTE | 2016-12-26 11:37 | Pre-Procedure Note/Attestation ---
Pre-Procedure Note/Attestation Complete Prior to Procedure Planned Procedure: right Procedure Narrative: laparoscopic right hemicolectomy, possible open. Indications for Procedure Pre-Operative Diagnosis: large cecal tumor with high grade dysplasia, R/O Carcinoma Attestation I attest that I discussed the nature of the procedure; its benefits; risks and complications; and alternatives (and the risks and benefits of such alternatives ), prior to the procedure, with the patient (or the patient's legal industrial relations representative). I attest that, if there was a reasonable possibility of needing a blood transfusion, the patient (or the patient's legal industrial relations representative) was given the [facility] standardized written summary, pursuant to the [place] Blood Safety Act ([place] Health and Safety Code # 1645, as amended). I attest that I re-evaluated the patient just prior to the surgery and that there has been no change in the patient's H&P, except as documented below: CARLO RESTREPO Dec 26, 2016 11:37
[2016-12-26] MEDS ORDERED: Midazolam 2mg/2ml Inj IVP PRN (11:45)
[2016-12-26] MEDS ORDERED: LORazepam Inj 2mg/ml 1ml IV PRN (11:45)
[2016-12-26] MEDS ORDERED: Ketorolac 30mg Inj IV PRN (11:45)
[2016-12-26] MEDS ORDERED: fentaNYL 100 mcg/2 mL IV PRN (11:45)
[2016-12-26] MEDS ORDERED: Hydromorphone 0.5mg/0.5ml inj IVP PRN (11:45)
[2016-12-26] MEDS ORDERED: DiphenhydrAMINE 50mg/ml Inj IVP PRN (11:45)
--- NOTE | 2016-12-26 12:10 | Pulmonology Progress Note ---
Assessment/Plan Problems: (1) Acute and chronic respiratory failure (2) Feeding by G-tube (3) Emphysema lung (4) Pleural effusion on right Respiratory: monitor respiratory rate, adjust FIO2, CXR Cardiac: continue to monitor HR/BP Renal: F/U I&O, keep IV fluid, check electrolytes Infectious Disease: check cultures, continue antibiotics Gastrointestinal: continue feedings/current rate Endocrine: monitor blood sugar, check TSH, continue sliding scale insulin Hematologic: monitor H/H, transfuse if hgb<8.5 Neurologic: PRN Ativan, PRN Morphine, keep patient comfortable Affect: PRN ativan Time Spent (Minutes): 40 Notes Reviewed: tandem mill sticker, cardio 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, consultants, shelter case manager Subjective ROS Limited/Unobtainable: No Constitutional: Reports: no symptoms HEENT: Repors: no symptoms Respiratory: Reports: no symptoms Cardiovascular: Reports: no symptoms Allergies: Coded Allergies: No Known Allergies (Unverified , 06/17/16) Objective Last 24 Hour Vital Signs Date Time Temp Pulse Resp B/P Pulse Ox O2 Delivery O2 Flow Rate FiO2 12/26/16 09:07 95 18 40 12/26/16 08:00 98.1 91 20 98/61 100 Mechanical Ventilator 40 12/26/16 08:00 40 12/26/16 07:29 86 12/26/16 06:49 99 18 40 12/26/16 05:35 88 18 100 Mechanical Ventilator 40 12/26/16 05:35 40 12/26/16 05:35 90 18 100 Mechanical Ventilator 40 12/26/16 04:57 86 18 40 12/26/16 04:00 80.0 40 12/26/16 04:00 98.6 89 18 102/75 100 Mechanical Ventilator 12/26/16 04:00 91 12/26/16 03:11 81 16 40 12/26/16 00:48 74 17 40 12/26/16 00:00 99.0 87 20 116/77 99 Mechanical Ventilator 40 12/26/16 00:00 81 12/26/16 00:00 80.0 40 12/25/16 23:04 73 16 40 12/25/16 21:04 91 22 40 12/25/16 20:00 80.0 40 12/25/16 20:00 89 12/25/16 20:00 98.1 83 20 101/74 100 Mechanical Ventilator 40 12/25/16 19:49 88 17 100 Mechanical Ventilator 40 12/25/16 19:49 40 12/25/16 19:48 88 21 100 Mechanical Ventilator 40 12/25/16 19:15 87 25 40 12/25/16 16:46 62 16 40 12/25/16 16:22 69 12/25/16 16:00 98.5 70 20 99/61 100 Mechanical Ventilator 40 12/25/16 16:00 40 12/25/16 15:16 72 18 100 Mechanical Ventilator 40 12/25/16 15:06 40 12/25/16 15:06 84 19 100 Mechanical Ventilator 40 12/25/16 14:43 76 18 40 12/25/16 12:39 71 18 40 Intake and Output 12/25/16 12/26/16 19:00 07:00 Intake Total 875 ml 900 ml Output Total 1100 ml 1200 ml Balance -225 ml -300 ml Free Water 50 ml IV Total 825 ml 900 ml Output Urine Total 1100 ml 1200 ml # Bowel Movements 1 Objective General Appearance: cachetic Lines, tubes and drains: peripheral HEENT: normocephalic, atraumatic Neck: non-tender, normal alignment Respiratory/Chest: chest wall non-tender, lungs clear Breasts: no masses Cardiovascular/Chest: normal peripheral pulses Abdomen: normal bowel sounds, non tender Genitourinary/Rectal: normal genital exam Extremities: normal range of motion Laboratory Tests 12/25/16 14:30: White Blood Count 9.8, Red Blood Count 3.47L, Hemoglobin 10.6L, Hematocrit 32.1L , Mean Corpuscular Volume 93, Mean Corpuscular Hemoglobin 30.4, Mean Corpuscular Hemoglobin Concent 32.9, Red Cell Distribution Width 15.7H, Platelet Count 252, Mean Platelet Volume 7.8, Neutrophils (%) (Auto) 73.5, Lymphocytes (%) (Auto) 13.0L, Monocytes (%) (Auto) 5.9, Eosinophils (%) (Auto) 6.9H, Basophils (%) (Auto) 0.9, Prothrombin Time 15.0H, Prothromb Time International Ratio 1.4H, Activated Partial Thromboplast Time 42H, Sodium Level 134L, Potassium Level 3.9, Chloride Level 96L, Carbon Dioxide Level 27, Anion Gap 11, Blood Urea Nitrogen 10, Creatinine 0.5L, Estimat Glomerular Filtration Rate > 60, Glucose Level 82, Calcium Level 7.9L 12/26/16 04:30: White Blood Count 12.6H, Red Blood Count 3.58L, Hemoglobin 11.1L, Hematocrit 33.5L, Mean Corpuscular Volume 93, Mean Corpuscular Hemoglobin 30.9, Mean Corpuscular Hemoglobin Concent 33.0, Red Cell Distribution Width 15.6H, Platelet Count 235, Mean Platelet Volume 7.1, Neutrophils (%) (Auto) 81.7H, Lymphocytes (%) (Auto) 8.6L, Monocytes (%) (Auto) 6.0, Eosinophils (%) (Auto) 2.9, Basophils (%) (Auto) 0.9, Prothrombin Time 14.3H, Prothromb Time International Ratio 1.4H, Activated Partial Thromboplast Time 38H, Sodium Level 135, Potassium Level 4.4, Chloride Level 98, Carbon Dioxide Level 26, Anion Gap 11, Blood Urea Nitrogen 8, Creatinine 0.5L, Estimat Glomerular Filtration Rate > 60, Glucose Level 69L, Calcium Level 8.1L, Total Bilirubin 0.3, Aspartate Amino Transf (AST/SGOT) 16, Alanine Aminotransferase (ALT/SGPT) 13, Alkaline Phosphatase 126, Total Protein 7.3, Albumin 1.6L, Globulin 5.7, Albumin/ Globulin Ratio 0.2L Current Medications Medications (Trade) Dose Ordered Sig/Shraddha Route PRN Reason Start Time Stop Time Status Last Admin Dose Admin Acetaminophen (Tylenol) 650 mg Q4H PRN ORAL Mild Pain (Pain Scale 1-3) 12/26/16 11:45 12/26/16 18:30 Acetaminophen (Tylenol) 650 mg Q4H PRN ORAL FEVER 12/12/16 19:30 01/11/17 19:29 12/23/16 16:30 Albuterol/ Ipratropium (DuoNeb 0.5-3(2.5)mg/3ml) 3 ml Q4H PRN HHN Shortness of Breath 12/21/16 18:00 12/26/16 17:59 12/26/16 05:34 Dextrose (Dextrose 50%) STAT PRN IV Hypoglycemia 12/12/16 19:30 01/11/17 19:29 Diphenhydramine HCl (Benadryl) 25 mg Q15M PRN IVP Itching 12/26/16 11:45 UNV Diphenhydramine HCl (Benadryl) 25 mg Q6H PRN IVP Itching 12/22/16 10:00 01/21/17 09:59 12/23/16 08:38 Fentanyl Citrate (Sublimaze 100 mcg/2 mL) 25 mcg Q10M PRN IV Moderate Pain (Pain Scale 4-6) 12/26/16 11:45 12/27/16 11:34 UNV Hydralazine HCl (Apresoline) 5 mg Q30M PRN IV SBP>160 OR___/DBP>90 OR___ 12/26/16 11:45 UNV Hydrocortisone (Hydrocortisone) 1 applic Q6H PRN TOPIC Itching 12/23/16 10:30 01/22/17 10:29 12/26/16 08:04 Hydromorphone HCl (Dilaudid) 0.5 mg Q15M PRN IVP Severe Pain (Pain Scale 7-10) 12/26/16 11:45 UNV Insulin Aspart EVERY 6 HOURS SUBQ 12/24/16 12:00 01/23/17 11:59 12/25/16 01:05 Ketorolac Tromethamine (Toradol 30mg) 15 mg Q1H PRN IV Moderate Breakthru Pain (5-7) 12/26/16 11:45 UNV Lorazepam (Ativan 2mg/ml 1ml) 0.5 mg Q15M PRN IV For Anxiety 12/26/16 11:45 UNV Midazolam HCl (Versed 2mg/2ml vial) 1 mg Q15M PRN IVP For Anxiety 12/26/16 11:45 UNV Ondansetron HCl (Zofran) 4 mg Q1H PRN IVP Nausea & Vomiting 12/26/16 11:45 UNV Ondansetron HCl (Zofran) 4 mg Q6H PRN IVP Nausea & Vomiting 12/12/16 19:30 01/11/17 19:29 Pantoprazole (Protonix) 40 mg DAILY IV 12/13/16 09:00 01/12/17 08:59 12/26/16 08:00 Polyethylene Glycol (Miralax) 17 gm DAILYPRN PRN ORAL Constipation 12/12/16 19:30 01/11/17 19:29 Promethazine HCl/ Codeine 5 ml 5 ml Q4H PRN ORAL For Cough 12/13/16 10:30 01/12/17 10:29 12/25/16 06:22 Sodium Chloride (Sodium Chloride 1000ml bag) 1,000 ml @ 10 mls/hr Q24H IVLG 12/26/16 11:34 12/26/16 18:30 Sodium Chloride (Sodium Chloride 1000ml bag) 1,000 ml @ 75 mls/hr [id number] IV 12/18/16 22:15 01/17/17 22:14 12/26/16 03:37 REN WRIGHT Dec 26, 2016 12:10
--- NOTE | 2016-12-26 12:38 | GI Progress Note ---
Assessment/Plan Problems: (1) Mass of cecum ICD Codes: K63.9 - Disease of intestine, unspecified SNOMED: 580634768 (2) Severe anemia ICD Codes: D64.9 - Anemia, unspecified SNOMED: 793739433 (3) Colonic mass ICD Codes: K63.9 - Disease of intestine, unspecified SNOMED: 017705557 (4) Gastric mass ICD Codes: K31.9 - Disease of stomach and duodenum, unspecified SNOMED: 298735031 (5) LFTs abnormal ICD Codes: R79.89 - Other specified abnormal findings of blood chemistry SNOMED: 679769962 (6) DVT (deep venous thrombosis) ICD Codes: I82.409 - Acute embolism and thrombosis of unspecified deep veins of unspecified lower extremity SNOMED: 919799379 (7) ENMA (iron deficiency anemia) ICD Codes: D50.9 - Iron deficiency anemia, unspecified SNOMED: 13498383 (8) Dysphagia ICD Codes: R13.10 - Dysphagia, unspecified SNOMED: 15617870, 341740331 (9) Anemia ICD Codes: D64.9 - Anemia, unspecified SNOMED: 876882817 Status: stable Status Narrative Discussed with Dr. Quiroz. Assessment/Plan S/P COLONOSCOPY SUMMARY OF FINDINGS: 1. Cecal mass status post biopsy, see above for details. 2. 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 cannot exclude malignancy deep in tumor remaining polyps - tubular adenoma no high grade dysplasia PLAN: surgery today, see surgical note. monitor H&H, transfuse prn GTFs per surgery, NPO @ [facility] ppi hydrocortisone prn fu labs recommend patient for f/u colonoscopy given multiple polyps Subjective Subjective limited, nonverbal Objective Last 24 Hour Vital Signs Date Time Temp Pulse Resp B/P Pulse Ox O2 Delivery O2 Flow Rate FiO2 12/26/16 09:07 95 18 40 12/26/16 08:00 98.1 91 20 98/61 100 Mechanical Ventilator 40 12/26/16 08:00 40 12/26/16 07:29 86 12/26/16 06:49 99 18 40 12/26/16 05:35 88 18 100 Mechanical Ventilator 40 12/26/16 05:35 40 12/26/16 05:35 90 18 100 Mechanical Ventilator 40 12/26/16 04:57 86 18 40 12/26/16 04:00 80.0 40 12/26/16 04:00 98.6 89 18 102/75 100 Mechanical Ventilator 12/26/16 04:00 91 12/26/16 03:11 81 16 40 12/26/16 00:48 74 17 40 12/26/16 00:00 99.0 87 20 116/77 99 Mechanical Ventilator 40 12/26/16 00:00 81 12/26/16 00:00 80.0 40 12/25/16 23:04 73 16 40 12/25/16 21:04 91 22 40 12/25/16 20:00 80.0 40 12/25/16 20:00 89 12/25/16 20:00 98.1 83 20 101/74 100 Mechanical Ventilator 40 12/25/16 19:49 88 17 100 Mechanical Ventilator 40 12/25/16 19:49 40 12/25/16 19:48 88 21 100 Mechanical Ventilator 40 12/25/16 19:15 87 25 40 12/25/16 16:46 62 16 40 12/25/16 16:22 69 12/25/16 16:00 98.5 70 20 99/61 100 Mechanical Ventilator 40 12/25/16 16:00 40 12/25/16 15:16 72 18 100 Mechanical Ventilator 40 12/25/16 15:06 40 12/25/16 15:06 84 19 100 Mechanical Ventilator 40 12/25/16 14:43 76 18 40 12/25/16 12:39 71 18 40 Intake and Output 12/25/16 12/26/16 19:00 07:00 Intake Total 875 ml 900 ml Output Total 1100 ml 1200 ml Balance -225 ml -300 ml Free Water 50 ml IV Total 825 ml 900 ml Output Urine Total 1100 ml 1200 ml # Bowel Movements 1 Laboratory Tests Test 12/25/16 14:30 12/26/16 04:30 White Blood Count 9.8 K/UL (4.8-10.8) 12.6 K/UL (4.8-10.8) H Red Blood Count 3.47 M/UL (4.70-6.10) L 3.58 M/UL (4.70-6.10) L Hemoglobin 10.6 G/DL (14.2-18.0) L 11.1 G/DL (14.2-18.0) L Hematocrit 32.1 % (42.0-52.0) L 33.5 % (42.0-52.0) L Mean Corpuscular Volume 93 FL (80-99) 93 FL (80-99) Mean Corpuscular Hemoglobin 30.4 PG (27.0-31.0) 30.9 PG (27.0-31.0) Mean Corpuscular Hemoglobin Concent 32.9 G/DL (32.0-36.0) 33.0 G/DL (32.0-36.0) Red Cell Distribution Width 15.7 % (11.6-14.8) H 15.6 % (11.6-14.8) H Platelet Count 252 K/UL (150-450) 235 K/UL (150-450) Mean Platelet Volume 7.8 FL (6.5-10.1) 7.1 FL (6.5-10.1) Neutrophils (%) (Auto) 73.5 % (45.0-75.0) 81.7 % (45.0-75.0) H Lymphocytes (%) (Auto) 13.0 % (20.0-45.0) L 8.6 % (20.0-45.0) L Monocytes (%) (Auto) 5.9 % (1.0-10.0) 6.0 % (1.0-10.0) Eosinophils (%) (Auto) 6.9 % (0.0-3.0) H 2.9 % (0.0-3.0) Basophils (%) (Auto) 0.9 % (0.0-2.0) 0.9 % (0.0-2.0) Prothrombin Time 15.0 SEC (9.30-11.50) H 14.3 SEC (9.30-11.50) H Prothromb Time International Ratio 1.4 (0.9-1.1) H 1.4 (0.9-1.1) H Activated Partial Thromboplast Time 42 SEC (23-33) H 38 SEC (23-33) H Sodium Level 134 mEQ/L (135-145) L 135 mEQ/L (135-145) Potassium Level 3.9 mEQ/L (3.4-4.9) 4.4 mEQ/L (3.4-4.9) Chloride Level 96 mEQ/L (98-107) L 98 mEQ/L (98-107) Carbon Dioxide Level 27 mEQ/L (20-30) 26 mEQ/L (20-30) Anion Gap 11 (5-15) 11 (5-15) Blood Urea Nitrogen 10 mg/dL (7-23) 8 mg/dL (7-23) Creatinine 0.5 mg/dL (0.7-1.2) L 0.5 mg/dL (0.7-1.2) L Estimat Glomerular Filtration Rate > 60 mL/min (>60) > 60 mL/min (>60) Glucose Level 82 mg/dL (74-106) 69 mg/dL (74-106) L Calcium Level 7.9 mg/dL (8.6-10.2) L 8.1 mg/dL (8.6-10.2) L Total Bilirubin 0.3 mg/dL (0.0-1.2) Aspartate Amino Transf (AST/SGOT) 16 U/L (5-40) Alanine Aminotransferase (ALT/SGPT) 13 U/L (3-41) Alkaline Phosphatase 126 U/L (40-129) Total Protein 7.3 g/dL (6.6-8.7) Albumin 1.6 g/dL (3.5-5.2) L Globulin 5.7 g/dL Albumin/Globulin Ratio 0.2 (1.0-2.7) L Height (Feet): 5 Height (Inches): 9.00 Weight (Pounds): 128 General Appearance: no apparent distress, alert Cardiovascular: normal rate Respiratory/Chest: other - [facility] vent Abdominal Exam: site - c/d/i Angeles Galloway N.P. Dec 26, 2016 12:38
--- NOTE | 2016-12-26 13:49 | Immediate Post-Op Evaluation ---
Immediate Post-Op Evalulation Immediate Post-Op Evalulation Procedure: Colonoscopy polypectomy Date of Evaluation: Dec 26, 2016 Time of Evaluation: 13:50 IV Fluids: 1.4L Blood Products: 0 Estimated Blood Loss: 100 Urinary Output: 175 Blood Pressure Systolic: 103 Blood Pressure Diastolic: 68 Pulse Rate: 79 Respiratory Rate: 16 O2 Sat by Pulse Oximetry: 99 Temperature (Fahrenheit): 97.2 Pain Score (1-10): 0 Nausea: No Vomiting: No Complications 0 Patient Status: awake, reacts, patent, none Hydration Status: adequate Drug: Ancef 1g Given Within 1 Hr of Incision: Yes Time Given: 11:00 ALIN LOVELL M.D. Dec 26, 2016 13:49
--- NOTE | 2016-12-26 14:18 | Brief Operative Note ---
Immediate Post Operative Note Operative Note Pre-op Diagnosis: large colonic tumor Surgeon: Adolph Additional Surgeons: Emile Anesthesiologist: Angel Anesthesia: general Specimen: yes - right hemicolectomy Complications: none Fluids: see records Estimated Blood Loss: minimal Implant(s) used?: No Landon Farfan Dec 26, 2016 14:17
--- NOTE | 2016-12-26 15:58 | Cardiac Electrophysiology PN ---
Assessment/Plan Status Narrative Technically difficult study due to poor acoustic windows. Normal left ventricular chamber size, systolic function and wall motion. Left ventricular ejection fraction estimated to be 55-60 %. No evidence of left ventricular hypertrophy. No evidence of pericardial fat or effusion. Mild bi-atrial enlargement by 2D. Focal aortic valve sclerosis with adequate cusp excursion Thickened mitral valve leaflets with normal excursion. Mitral annulus and aortic root calcification. Pulmonic valve is well visualized. Normal tricuspid valve structure. IVC is normal in size with minimal physiologic collapse. RA pressure of 10mmHg. Assessment/Plan 1. Sinus tachycardia due to sepsis and respiratory failure. 2. Hypotension, Will give iv fluid if persists. 3. Severe chronic obstructive pulmonary disease and pulmonary hypertension.On Vent. 4. Pneumonia, on IV antibiotics. 5. Ventilator-dependent respiratory failure, status post tracheostomy on vent 6. Status post percutaneous endoscopic gastrostomy placement. 7. 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 S/P Laparoscopic right [place]- colectomy today . Tolerated surgery well. 8. Pleural effusion, status post thoracentesis on 11/21/2016 and 12/14/16 KATHY RN Subjective Subjective Alert in JORDAN on vent via trach.Remained in SR.Had Lap hemicolectomy today.No chest pain or SOB. Objective Last 24 Hour Vital Signs Date Time Temp Pulse Resp B/P Pulse Ox O2 Delivery O2 Flow Rate FiO2 12/26/16 15:08 94 16 40 12/26/16 14:55 97.2 79 16 105/69 100 Mechanical Ventilator 40 12/26/16 14:48 63 16 105/67 100 Mechanical Ventilator 40 12/26/16 14:37 67 16 92/60 100 Mechanical Ventilator 40 12/26/16 14:30 62 16 85/61 100 Mechanical Ventilator 40 12/26/16 14:15 61 16 81/58 100 Mechanical Ventilator 40 12/26/16 14:00 71 16 85/60 100 Mechanical Ventilator 40 12/26/16 13:55 77 16 87/64 100 Mechanical Ventilator 40 12/26/16 13:50 88 16 103/68 100 Mechanical Ventilator 40 12/26/16 13:49 79 16 99 12/26/16 13:45 40 12/26/16 13:45 97.2 88 16 91/63 100 Mechanical Ventilator 40 12/26/16 09:07 95 18 40 12/26/16 08:00 98.1 91 20 98/61 100 Mechanical Ventilator 40 12/26/16 08:00 40 12/26/16 07:29 86 12/26/16 06:49 99 18 40 12/26/16 05:35 88 18 100 Mechanical Ventilator 40 12/26/16 05:35 40 12/26/16 05:35 90 18 100 Mechanical Ventilator 40 12/26/16 04:57 86 18 40 12/26/16 04:00 80.0 40 12/26/16 04:00 98.6 89 18 102/75 100 Mechanical Ventilator 12/26/16 04:00 91 12/26/16 03:11 81 16 40 12/26/16 00:48 74 17 40 12/26/16 00:00 99.0 87 20 116/77 99 Mechanical Ventilator 40 12/26/16 00:00 81 12/26/16 00:00 80.0 40 12/25/16 23:04 73 16 40 12/25/16 21:04 91 22 40 12/25/16 20:00 80.0 40 12/25/16 20:00 89 12/25/16 20:00 98.1 83 20 101/74 100 Mechanical Ventilator 40 12/25/16 19:49 88 17 100 Mechanical Ventilator 40 12/25/16 19:49 40 12/25/16 19:48 88 21 100 Mechanical Ventilator 40 12/25/16 19:15 87 25 40 12/25/16 16:46 62 16 40 12/25/16 16:22 69 12/25/16 16:00 98.5 70 20 99/61 100 Mechanical Ventilator 40 12/25/16 16:00 40 Intake and Output 12/25/16 12/26/16 19:00 07:00 Intake Total 875 ml 900 ml Output Total 1100 ml 1200 ml Balance -225 ml -300 ml Free Water 50 ml IV Total 825 ml 900 ml Output Urine Total 1100 ml 1200 ml # Bowel Movements 1 Laboratory Tests Test 12/26/16 04:30 White Blood Count 12.6 K/UL (4.8-10.8) H Red Blood Count 3.58 M/UL (4.70-6.10) L Hemoglobin 11.1 G/DL (14.2-18.0) L Hematocrit 33.5 % (42.0-52.0) L Mean Corpuscular Volume 93 FL (80-99) Mean Corpuscular Hemoglobin 30.9 PG (27.0-31.0) Mean Corpuscular Hemoglobin Concent 33.0 G/DL (32.0-36.0) Red Cell Distribution Width 15.6 % (11.6-14.8) H Platelet Count 235 K/UL (150-450) Mean Platelet Volume 7.1 FL (6.5-10.1) Neutrophils (%) (Auto) 81.7 % (45.0-75.0) H Lymphocytes (%) (Auto) 8.6 % (20.0-45.0) L Monocytes (%) (Auto) 6.0 % (1.0-10.0) Eosinophils (%) (Auto) 2.9 % (0.0-3.0) Basophils (%) (Auto) 0.9 % (0.0-2.0) Prothrombin Time 14.3 SEC (9.30-11.50) H Prothromb Time International Ratio 1.4 (0.9-1.1) H Activated Partial Thromboplast Time 38 SEC (23-33) H Sodium Level 135 mEQ/L (135-145) Potassium Level 4.4 mEQ/L (3.4-4.9) Chloride Level 98 mEQ/L (98-107) Carbon Dioxide Level 26 mEQ/L (20-30) Anion Gap 11 (5-15) Blood Urea Nitrogen 8 mg/dL (7-23) Creatinine 0.5 mg/dL (0.7-1.2) L Estimat Glomerular Filtration Rate > 60 mL/min (>60) Glucose Level 69 mg/dL (74-106) L Calcium Level 8.1 mg/dL (8.6-10.2) L Total Bilirubin 0.3 mg/dL (0.0-1.2) Aspartate Amino Transf (AST/SGOT) 16 U/L (5-40) Alanine Aminotransferase (ALT/SGPT) 13 U/L (3-41) Alkaline Phosphatase 126 U/L (40-129) Total Protein 7.3 g/dL (6.6-8.7) Albumin 1.6 g/dL (3.5-5.2) L Globulin 5.7 g/dL Albumin/Globulin Ratio 0.2 (1.0-2.7) L Objective HEAD AND NECK: No JVD.Tracheostomy intact. LUNGS: Have coarse rhonchi. CARDIOVASCULAR: Tachycardic S1, S2 with no gallop or murmur. ABDOMEN: Soft. Gtube intyact. Has 3 Laparoscopy incisions with out bleeding or hematoma. EXTREMITIES: One plus edema. OSWALD HILLS Dec 26, 2016 15:58
[2016-12-26] MEDS: Hydromorphone 0.5mg/0.5ml inj IVP PRN (16:38)
--- NOTE | 2016-12-26 16:46 | Internal Med Progress Note ---
Subjective Date of Service: Dec 26, 2016 Physician Name Tadeo Verdin Attending Physician Steve Rader MD Current Medications Medications (Trade) Dose Ordered Sig/Shraddha Route PRN Reason Start Time Stop Time Status Last Admin Dose Admin Acetaminophen (Tylenol) 650 mg Q4H PRN ORAL Mild Pain (Pain Scale 1-3) 12/26/16 11:45 12/26/16 18:30 Acetaminophen (Tylenol) 650 mg Q4H PRN ORAL FEVER 12/12/16 19:30 01/11/17 19:29 12/23/16 16:30 Albuterol/ Ipratropium (DuoNeb 0.5-3(2.5)mg/3ml) 3 ml Q4H PRN HHN Shortness of Breath 12/21/16 18:00 12/26/16 17:59 12/26/16 05:34 Cefoxitin Sodium/ Dextrose (Mefoxin/D5W) 55 ml @ 110 mls/hr EVERY 6 HOURS IV 12/26/16 18:00 12/27/16 06:29 Dextrose (Dextrose 50%) STAT PRN IV Hypoglycemia 12/12/16 19:30 01/11/17 19:29 Diphenhydramine HCl (Benadryl) 25 mg Q15M PRN IVP Itching 12/26/16 11:45 12/26/16 20:30 Diphenhydramine HCl (Benadryl) 25 mg Q6H PRN IVP Itching 12/22/16 10:00 01/21/17 09:59 12/23/16 08:38 Fentanyl Citrate (Sublimaze 100 mcg/2 mL) 25 mcg Q10M PRN IV Moderate Pain (Pain Scale 4-6) 12/26/16 11:45 12/26/16 20:30 Hydralazine HCl (Apresoline) 5 mg Q30M PRN IV SBP>160 OR___/DBP>90 OR___ 12/26/16 11:45 12/26/16 20:30 Hydrocortisone (Hydrocortisone) 1 applic Q6H PRN TOPIC Itching 12/23/16 10:30 01/22/17 10:29 12/26/16 08:04 Hydromorphone HCl (Dilaudid) 0.5 mg Q15M PRN IVP Severe Pain (Pain Scale 7-10) 12/26/16 11:45 12/26/16 20:30 Hydromorphone HCl (Dilaudid) 1 mg Q3H PRN IVP pain score 4-6 12/26/16 20:31 01/02/17 20:30 Hydromorphone HCl (Dilaudid) 2 mg Q3H PRN IVP pain score 7-10 12/26/16 20:31 01/02/17 20:30 Hydromorphone HCl 0.5 mg 0.5 mg Q3H PRN IVP Pain Score 1-3 12/26/16 20:31 01/02/17 20:30 12/26/16 16:38 Insulin Aspart EVERY 6 HOURS SUBQ 12/24/16 12:00 01/23/17 11:59 12/25/16 01:05 Ketorolac Tromethamine (Toradol 30mg) 15 mg Q1H PRN IV Moderate Breakthru Pain (5-7) 12/26/16 11:45 12/26/16 20:30 Lorazepam (Ativan 2mg/ml 1ml) 0.5 mg Q15M PRN IV For Anxiety 12/26/16 11:45 12/26/16 20:30 Midazolam HCl (Versed 2mg/2ml vial) 1 mg Q15M PRN IVP For Anxiety 12/26/16 11:45 12/26/16 20:30 Ondansetron HCl (Zofran) 4 mg Q1H PRN IVP Nausea & Vomiting 12/26/16 11:45 12/26/16 20:30 Ondansetron HCl (Zofran) 4 mg Q6H PRN IVP Nausea & Vomiting 12/12/16 19:30 01/11/17 19:29 Ondansetron HCl 4 mg 4 mg Q6H PRN IVP Nausea & Vomiting 12/26/16 14:30 01/25/17 14:29 Pantoprazole (Protonix) 40 mg DAILY IV 12/13/16 09:00 01/12/17 08:59 12/26/16 08:00 Polyethylene Glycol (Miralax) 17 gm DAILYPRN PRN ORAL Constipation 12/12/16 19:30 01/11/17 19:29 Promethazine HCl/ Codeine 5 ml 5 ml Q4H PRN ORAL For Cough 12/13/16 10:30 01/12/17 10:29 12/25/16 06:22 Sodium Chloride (Sodium Chloride 1000ml bag) 1,000 ml @ 10 mls/hr Q24H IVLG 12/26/16 11:34 12/26/16 18:30 Sodium Chloride (Sodium Chloride 1000ml bag) 1,000 ml @ 75 mls/hr [id number] IV 12/18/16 22:15 01/17/17 22:14 12/26/16 16:03 Sodium Chloride (Sodium Chloride 1000ml bag) 1,000 ml @ 999 mls/hr Q1H1M PRN IV For hypotension SBP<85 12/26/16 16:00 01/25/17 15:59 Allergies: Coded Allergies: No Known Allergies (Unverified , 06/17/16) ROS Limited/Unobtainable: Yes Subjective 66 YO M admitted for shortness of breath and tachycardia. Intubated and sedated. JORDAN. Cover for Int Wilder-Dr Rader. S/P right hemicolectomy 12/26/16 Objective Last Vital Signs Date Time Temp Pulse Resp B/P Pulse Ox O2 Delivery O2 Flow Rate FiO2 12/26/16 16:00 98.1 78 17 119/78 100 Mechanical Ventilator 40 12/26/16 04:00 80.0 Laboratory Tests Test 12/26/16 04:30 White Blood Count 12.6 K/UL (4.8-10.8) H Red Blood Count 3.58 M/UL (4.70-6.10) L Hemoglobin 11.1 G/DL (14.2-18.0) L Hematocrit 33.5 % (42.0-52.0) L Mean Corpuscular Volume 93 FL (80-99) Mean Corpuscular Hemoglobin 30.9 PG (27.0-31.0) Mean Corpuscular Hemoglobin Concent 33.0 G/DL (32.0-36.0) Red Cell Distribution Width 15.6 % (11.6-14.8) H Platelet Count 235 K/UL (150-450) Mean Platelet Volume 7.1 FL (6.5-10.1) Neutrophils (%) (Auto) 81.7 % (45.0-75.0) H Lymphocytes (%) (Auto) 8.6 % (20.0-45.0) L Monocytes (%) (Auto) 6.0 % (1.0-10.0) Eosinophils (%) (Auto) 2.9 % (0.0-3.0) Basophils (%) (Auto) 0.9 % (0.0-2.0) Prothrombin Time 14.3 SEC (9.30-11.50) H Prothromb Time International Ratio 1.4 (0.9-1.1) H Activated Partial Thromboplast Time 38 SEC (23-33) H Sodium Level 135 mEQ/L (135-145) Potassium Level 4.4 mEQ/L (3.4-4.9) Chloride Level 98 mEQ/L (98-107) Carbon Dioxide Level 26 mEQ/L (20-30) Anion Gap 11 (5-15) Blood Urea Nitrogen 8 mg/dL (7-23) Creatinine 0.5 mg/dL (0.7-1.2) L Estimat Glomerular Filtration Rate > 60 mL/min (>60) Glucose Level 69 mg/dL (74-106) L Calcium Level 8.1 mg/dL (8.6-10.2) L Total Bilirubin 0.3 mg/dL (0.0-1.2) Aspartate Amino Transf (AST/SGOT) 16 U/L (5-40) Alanine Aminotransferase (ALT/SGPT) 13 U/L (3-41) Alkaline Phosphatase 126 U/L (40-129) Total Protein 7.3 g/dL (6.6-8.7) Albumin 1.6 g/dL (3.5-5.2) L Globulin 5.7 g/dL Albumin/Globulin Ratio 0.2 (1.0-2.7) L Intake and Output 12/25/16 12/26/16 19:00 07:00 Intake Total 875 ml 900 ml Output Total 1100 ml 1200 ml Balance -225 ml -300 ml Free Water 50 ml IV Total 825 ml 900 ml Output Urine Total 1100 ml 1200 ml # Bowel Movements 1 Objective General Appearance: lethargic, thin EENT: PERRL/EOMI, normal ENT inspection Neck: Trach; non-tender, normal alignment, supple Cardiovascular: normal peripheral pulses, regular rhythm, no gallop/murmur, no JVD, tachycardia Respiratory/Chest: Mech vent; chest wall non-tender, crackles/rales, rhonchi - bilaterally, expiratory wheezing Abdomen: normal bowel sounds, non tender, soft, no organomegaly, no mass Neurologic: rug layer II-XII grossly normal, no motor/sensory deficits Skin: normal pigmentation, warm/dry Assessment/Plan Problem List: (1) UTI (urinary tract infection) Assessment & Plan: Acinetobacter Baumanii. See ID note. Resolved. (2) Tachycardia (3) SOB (shortness of breath) Assessment & Plan: Due to pneurmonia. (4) Hypertension (5) Acute and chronic respiratory failure Assessment & Plan: Currently on Mech vent. See pulmonary note. (6) Emphysema lung (7) Lung abscess (8) Mass of colon (9) Pneumonia Assessment & Plan: see pulmonary and ID note. (10) Mass of cecum Assessment & Plan: See surgery note. S/P Colonoscopy 12/17/16; repeat . S/P Right hemicolectomy 12/26/16 Status: not improved TADEO VERDIN Dec 26, 2016 16:46
[2016-12-26] MEDS: cefOXitin Sod 1 GM in D5W 55 ML IV SCH ×2 (17:18→23:57)
[2016-12-26] MEDS: DiphenhydrAMINE 50mg/ml Inj IVP PRN (17:54)
--- NOTE | 2016-12-26 18:30 | Infectious Diseases Prog Note ---
Assessment/Plan Assessment/Plan ASSESSMENT: 66 y/o male with: // Probable recurrent HCAP / VAP r/o empyema - SCx : not sent - CXR 12/13: Fairly extensive infiltrate throughout the right lung persists, may be slightly worse. Left lung and pleural space remain clear - h/o MDR ACB, PSA - CT 11/14 :Extensive pneumonia involving both lungs as described above. 5-6 cm cavitary focus suspicious for lung abscess in the right upper lobe. // Recurrent pleural effusion no evid of empyema or malignancy - SP thoracentesis 12/13 - - SP thoracentesis 11/21 neg empyema // Recurrent MDR-ACB UTI - h/o yeast, VRE // Leukocytosis - SP , afebrile ( DVT, probable CA contributing ) // HIV and Hep B/C : neg // Colon mass,TV adenoma SP right hemicolectomy 12/26 SP Colonoscopy with biopsy and snare polypectomy 12/18 CT: Large cecal mass and other polypoid colonic masses, detailed previously , again demonstrated // Acute on chronic VDRF SP trach, PEG - h/o COPD // Severe pulmonary HTN / grade I diastolic dysfunction / mod TR // Pulmonary nodules // h/o chronic RLE DVT - repeat doppler neg // Thrombocytosis // [facility] resident // MDRO colonized // NKDA // Full Code PLAN: cefoxitin darío-op - 12/24 SP tygacil d# 10 SP IV vancomycin, amikacin d# 2 - monitor CBC, temperatures - monitor BMP - monitor CXR - vent support, trach care, aspiration precautions - GenSx:following - colon tumor :path :P Subjective Allergies: Coded Allergies: No Known Allergies (Unverified , 06/17/16) Subjective afebrile Objective Vital Signs Last 24 Hour Vital Signs Date Time Temp Pulse Resp B/P Pulse Ox O2 Delivery O2 Flow Rate FiO2 12/26/16 16:54 97 16 40 12/26/16 16:00 98.1 78 17 119/78 100 Mechanical Ventilator 40 12/26/16 16:00 40 12/26/16 15:28 73 12/26/16 15:08 94 16 40 12/26/16 14:55 97.2 79 16 105/69 100 Mechanical Ventilator 40 12/26/16 14:48 63 16 105/67 100 Mechanical Ventilator 40 12/26/16 14:37 67 16 92/60 100 Mechanical Ventilator 40 12/26/16 14:30 62 16 85/61 100 Mechanical Ventilator 40 12/26/16 14:15 61 16 81/58 100 Mechanical Ventilator 40 12/26/16 14:00 71 16 85/60 100 Mechanical Ventilator 40 12/26/16 13:55 77 16 87/64 100 Mechanical Ventilator 40 12/26/16 13:50 88 16 103/68 100 Mechanical Ventilator 40 12/26/16 13:49 79 16 99 12/26/16 13:45 40 12/26/16 13:45 97.2 88 16 91/63 100 Mechanical Ventilator 40 12/26/16 09:07 95 18 40 12/26/16 08:00 98.1 91 20 98/61 100 Mechanical Ventilator 40 12/26/16 08:00 40 12/26/16 07:29 86 12/26/16 06:49 99 18 40 12/26/16 05:35 88 18 100 Mechanical Ventilator 40 12/26/16 05:35 40 12/26/16 05:35 90 18 100 Mechanical Ventilator 40 12/26/16 04:57 86 18 40 12/26/16 04:00 80.0 40 12/26/16 04:00 98.6 89 18 102/75 100 Mechanical Ventilator 12/26/16 04:00 91 12/26/16 03:11 81 16 40 12/26/16 00:48 74 17 40 12/26/16 00:00 99.0 87 20 116/77 99 Mechanical Ventilator 40 12/26/16 00:00 81 12/26/16 00:00 80.0 40 12/25/16 23:04 73 16 40 12/25/16 21:04 91 22 40 12/25/16 20:00 80.0 40 12/25/16 20:00 89 12/25/16 20:00 98.1 83 20 101/74 100 Mechanical Ventilator 40 12/25/16 19:49 88 17 100 Mechanical Ventilator 40 12/25/16 19:49 40 12/25/16 19:48 88 21 100 Mechanical Ventilator 40 12/25/16 19:15 87 25 40 Height (Feet): 5 Height (Inches): 9.00 Weight (Pounds): 128 HEENT: anicteric Respiratory/Chest: normal breath sounds Cardiovascular: no JVD Abdomen: non distended Laboratory Tests Test 12/26/16 04:30 White Blood Count 12.6 K/UL (4.8-10.8) H Red Blood Count 3.58 M/UL (4.70-6.10) L Hemoglobin 11.1 G/DL (14.2-18.0) L Hematocrit 33.5 % (42.0-52.0) L Mean Corpuscular Volume 93 FL (80-99) Mean Corpuscular Hemoglobin 30.9 PG (27.0-31.0) Mean Corpuscular Hemoglobin Concent 33.0 G/DL (32.0-36.0) Red Cell Distribution Width 15.6 % (11.6-14.8) H Platelet Count 235 K/UL (150-450) Mean Platelet Volume 7.1 FL (6.5-10.1) Neutrophils (%) (Auto) 81.7 % (45.0-75.0) H Lymphocytes (%) (Auto) 8.6 % (20.0-45.0) L Monocytes (%) (Auto) 6.0 % (1.0-10.0) Eosinophils (%) (Auto) 2.9 % (0.0-3.0) Basophils (%) (Auto) 0.9 % (0.0-2.0) Prothrombin Time 14.3 SEC (9.30-11.50) H Prothromb Time International Ratio 1.4 (0.9-1.1) H Activated Partial Thromboplast Time 38 SEC (23-33) H Sodium Level 135 mEQ/L (135-145) Potassium Level 4.4 mEQ/L (3.4-4.9) Chloride Level 98 mEQ/L (98-107) Carbon Dioxide Level 26 mEQ/L (20-30) Anion Gap 11 (5-15) Blood Urea Nitrogen 8 mg/dL (7-23) Creatinine 0.5 mg/dL (0.7-1.2) L Estimat Glomerular Filtration Rate > 60 mL/min (>60) Glucose Level 69 mg/dL (74-106) L Calcium Level 8.1 mg/dL (8.6-10.2) L Total Bilirubin 0.3 mg/dL (0.0-1.2) Aspartate Amino Transf (AST/SGOT) 16 U/L (5-40) Alanine Aminotransferase (ALT/SGPT) 13 U/L (3-41) Alkaline Phosphatase 126 U/L (40-129) Total Protein 7.3 g/dL (6.6-8.7) Albumin 1.6 g/dL (3.5-5.2) L Globulin 5.7 g/dL Albumin/Globulin Ratio 0.2 (1.0-2.7) L Current Medications Medications (Trade) Dose Ordered Sig/Shraddha Route PRN Reason Start Time Stop Time Status Last Admin Dose Admin Acetaminophen (Tylenol) 650 mg Q4H PRN ORAL Mild Pain (Pain Scale 1-3) 12/26/16 11:45 12/26/16 18:30 Acetaminophen (Tylenol) 650 mg Q4H PRN ORAL FEVER 12/12/16 19:30 01/11/17 19:29 12/23/16 16:30 Cefoxitin Sodium/ Dextrose (Mefoxin/D5W) 55 ml @ 110 mls/hr EVERY 6 HOURS IV 12/26/16 18:00 12/27/16 06:29 12/26/16 17:18 Dextrose (Dextrose 50%) STAT PRN IV Hypoglycemia 12/12/16 19:30 01/11/17 19:29 Diphenhydramine HCl (Benadryl) 25 mg Q15M PRN IVP Itching 12/26/16 11:45 12/26/16 20:30 Diphenhydramine HCl (Benadryl) 25 mg Q6H PRN IVP Itching 12/22/16 10:00 01/21/17 09:59 12/26/16 17:54 Fentanyl Citrate (Sublimaze 100 mcg/2 mL) 25 mcg Q10M PRN IV Moderate Pain (Pain Scale 4-6) 12/26/16 11:45 12/26/16 20:30 Hydralazine HCl (Apresoline) 5 mg Q30M PRN IV SBP>160 OR___/DBP>90 OR___ 12/26/16 11:45 12/26/16 20:30 Hydrocortisone (Hydrocortisone) 1 applic Q6H PRN TOPIC Itching 12/23/16 10:30 01/22/17 10:29 12/26/16 08:04 Hydromorphone HCl (Dilaudid) 0.5 mg Q15M PRN IVP Severe Pain (Pain Scale 7-10) 12/26/16 11:45 12/26/16 20:30 Hydromorphone HCl (Dilaudid) 1 mg Q3H PRN IVP pain score 4-6 12/26/16 20:31 01/02/17 20:30 Hydromorphone HCl (Dilaudid) 2 mg Q3H PRN IVP pain score 7-10 12/26/16 20:31 01/02/17 20:30 Hydromorphone HCl 0.5 mg 0.5 mg Q3H PRN IVP Pain Score 1-3 12/26/16 20:31 01/02/17 20:30 12/26/16 16:38 Insulin Aspart EVERY 6 HOURS SUBQ 12/24/16 12:00 01/23/17 11:59 12/25/16 01:05 Ketorolac Tromethamine (Toradol 30mg) 15 mg Q1H PRN IV Moderate Breakthru Pain (5-7) 12/26/16 11:45 12/26/16 20:30 Lorazepam (Ativan 2mg/ml 1ml) 0.5 mg Q15M PRN IV For Anxiety 12/26/16 11:45 12/26/16 20:30 Midazolam HCl (Versed 2mg/2ml vial) 1 mg Q15M PRN IVP For Anxiety 12/26/16 11:45 12/26/16 20:30 Ondansetron HCl (Zofran) 4 mg Q1H PRN IVP Nausea & Vomiting 12/26/16 11:45 12/26/16 20:30 Ondansetron HCl (Zofran) 4 mg Q6H PRN IVP Nausea & Vomiting 12/12/16 19:30 01/11/17 19:29 Ondansetron HCl 4 mg 4 mg Q6H PRN IVP Nausea & Vomiting 12/26/16 14:30 01/25/17 14:29 Pantoprazole (Protonix) 40 mg DAILY IV 12/13/16 09:00 01/12/17 08:59 12/26/16 08:00 Polyethylene Glycol (Miralax) 17 gm DAILYPRN PRN ORAL Constipation 12/12/16 19:30 01/11/17 19:29 Promethazine HCl/ Codeine 5 ml 5 ml Q4H PRN ORAL For Cough 12/13/16 10:30 01/12/17 10:29 12/25/16 06:22 Sodium Chloride (Sodium Chloride 1000ml bag) 1,000 ml @ 10 mls/hr Q24H IVLG 12/26/16 11:34 12/26/16 18:30 Sodium Chloride (Sodium Chloride 1000ml bag) 1,000 ml @ 75 mls/hr [id number] IV 12/18/16 22:15 01/17/17 22:14 12/26/16 16:03 Sodium Chloride (Sodium Chloride 1000ml bag) 1,000 ml @ 999 mls/hr Q1H1M PRN IV For hypotension SBP<85 12/26/16 16:00 01/25/17 15:59 KIMBERLEE HINKLE M.D. Dec 26, 2016 18:30
[2016-12-27] VITALS: BP 117/77
[2016-12-27 04:00] VITALS: BP 102/67
[2016-12-27] MEDS: Hydrocortisone 0.5% Cream 30gm TOPIC PRN (04:15)
[2016-12-27] MEDS: NovoLOG Insulin Flexpen SUBQ SCH ×3 (05:38→17:46)
[2016-12-27] MEDS: cefOXitin Sod 1 GM in D5W 55 ML IV SCH (05:38)
[2016-12-27 08:00] VITALS: BP 110/73
[2016-12-27] MEDS: DiphenhydrAMINE 50mg/ml Inj IVP PRN (09:10)
[2016-12-27] MEDS: Pantoprazole Inj IV SCH (09:10)
[2016-12-27 09:13] LABS: MEAN CORPUSCULAR HEMOGLOBIN 30.2 PG (27.0-31.0); MEAN CORPUSCULAR HGB CONC 31.9 G/DL (32.0-36.0); MEAN CORPUSCULAR VOLUME 95 FL (80-99); PLATELET COUNT 261 K/UL (150-450); RED BLOOD COUNT 3.78 M/UL (4.70-6.10); RED CELL DISTRIBUTION WIDTH 15.8 % (11.6-14.8); WHITE BLOOD COUNT 20.5 K/UL (4.8-10.8)
[2016-12-27 09:22] LABS: INR 1.5 (0.9-1.1); PROTHROMBIN TIME 15.5 SEC (9.30-11.50)
[2016-12-27 09:42] LABS: ALANINE AMINOTRANSFERASE 12 U/L (3-41); ALBUMIN/GLOBULIN RATIO 0.3 (1.0-2.7); ANION GAP 15 (5-15); ASPARTATE AMINO TRANSFERASE 14 U/L (5-40); CALCIUM 8.6 mg/dL (8.6-10.2); CARBON DIOXIDE 24 mEQ/L (20-30); CHLORIDE 99 mEQ/L (98-107); CREATININE 0.6 mg/dL (0.7-1.2); GLOMERULAR FILTRATION RATE > 60 mL/min (>60); HEMOLYSIS 1; MAGNESIUM 1.7 mg/dL (1.7-2.5); PHOSPHORUS 3.8 mg/dL (2.5-4.8); POTASSIUM 4.1 mEQ/L (3.4-4.9); SODIUM 138 mEQ/L (135-145); TOTAL PROTEIN 7.2 g/dL (6.6-8.7)
[2016-12-27] MEDS ORDERED: Tubing IV Secondary IV ONE (10:08)
--- NOTE | 2016-12-27 10:21 | Endoscopy Procedure Note ---
Endoscopy Procedure Note Indication for Procedure: colon mass Procedures Performed: colonoscopy Operative Findings/Diagnosis: multiple large polyps Specimen: yes Pt Tolerated Procedure Well: Yes Estimated Blood Loss: none Anesthesiologist: see cahrt Anesthesia: MAC Implant(s) used?: No 50 yrs or older w/o bx or poly: Not Applicable 10yrs. F/U not recommended: Not Applicable JULIANNE ESTEVEZ Dec 27, 2016 10:21
[2016-12-27 10:32] LABS: ANISOCYTOSIS 1+; BAND NEUTROPHILS % (MANUAL) 1 % (0-8); BASOPHILS % (MANUAL) 0 % (0-2); EOSINOPHILS % (MANUAL) 0 % (0-3); HYPOCHROMASIA 1+; LYMPHOCYTES % (MANUAL) 6 % (20-45); NEUTROPHILS % (MANUAL) 89 % (45-75); PLATELET ESTIMATE ADEQUATE; PLATELET MORPHOLOGY NORMAL; TOTAL CELLS COUNTED 100
--- NOTE | 2016-12-27 11:02 | Pulmonology Progress Note ---
Assessment/Plan Problems: (1) Acute and chronic respiratory failure (2) Feeding by G-tube (3) Emphysema lung (4) Pleural effusion on right Respiratory: monitor respiratory rate, adjust FIO2 Cardiac: continue to monitor HR/BP Renal: F/U I&O, keep IV fluid, check electrolytes Infectious Disease: check cultures Gastrointestinal: continue feedings/current rate, hold feedings, abdominal imaging Endocrine: monitor blood sugar, check TSH, check HgA1C Neurologic: PRN Ativan, PRN Morphine Affect: PRN ativan Notes Reviewed: industrial nurse, renal Discussed with: case preparer and liner Subjective ROS Limited/Unobtainable: No Constitutional: Reports: no symptoms HEENT: Repors: no symptoms Respiratory: Reports: no symptoms Allergies: Coded Allergies: No Known Allergies (Unverified , 06/17/16) Objective Last 24 Hour Vital Signs Date Time Temp Pulse Resp B/P Pulse Ox O2 Delivery O2 Flow Rate FiO2 12/27/16 08:36 84 16 40 12/27/16 08:00 40 12/27/16 08:00 66 12/27/16 08:00 98.0 79 17 110/73 99 Mechanical Ventilator 40 12/27/16 06:33 80 16 40 12/27/16 05:30 70 16 40 12/27/16 04:00 97.8 86 20 102/67 100 Mechanical Ventilator 40 12/27/16 04:00 102 12/27/16 04:00 40 12/27/16 03:01 71 16 40 12/27/16 01:20 77 16 40 12/27/16 00:00 80.0 40 12/27/16 00:00 91 12/27/16 00:00 98.3 97 19 117/77 100 Mechanical Ventilator 40 12/26/16 23:08 69 16 40 12/26/16 21:13 95 16 40 12/26/16 20:16 98.1 79 16 121/82 100 Mechanical Ventilator 40 12/26/16 20:00 84 12/26/16 18:56 96 16 40 12/26/16 16:54 97 16 40 12/26/16 16:00 98.1 78 17 119/78 100 Mechanical Ventilator 40 12/26/16 16:00 40 12/26/16 15:28 73 12/26/16 15:08 94 16 40 12/26/16 14:55 97.2 79 16 105/69 100 Mechanical Ventilator 40 12/26/16 14:48 63 16 105/67 100 Mechanical Ventilator 40 12/26/16 14:37 67 16 92/60 100 Mechanical Ventilator 40 12/26/16 14:30 62 16 85/61 100 Mechanical Ventilator 40 12/26/16 14:15 61 16 81/58 100 Mechanical Ventilator 40 12/26/16 14:00 71 16 85/60 100 Mechanical Ventilator 40 12/26/16 13:55 77 16 87/64 100 Mechanical Ventilator 40 12/26/16 13:50 88 16 103/68 100 Mechanical Ventilator 40 12/26/16 13:49 79 16 99 12/26/16 13:45 40 12/26/16 13:45 97.2 88 16 91/63 100 Mechanical Ventilator 40 Intake and Output 12/26/16 12/27/16 19:00 07:00 Intake Total 2705 ml 992.5 ml Output Total 275 ml 1000 ml Balance 2430 ml -7.5 ml IV Total 2705 ml 992.5 ml Output Urine Total 175 ml 1000 ml Estimated Blood Loss 100 ml Objective General Appearance: cachetic Lines, tubes and drains: peripheral HEENT: normocephalic, atraumatic Neck: non-tender, normal alignment Respiratory/Chest: chest wall non-tender, lungs clear Breasts: no masses Cardiovascular/Chest: normal peripheral pulses Abdomen: normal bowel sounds, non tender Genitourinary/Rectal: normal genital exam Extremities: normal range of motion Laboratory Tests 12/27/16 08:45: White Blood Count 20.5#H, Red Blood Count 3.78L, Hemoglobin 11.4L, Hematocrit 35.8L, Mean Corpuscular Volume 95, Mean Corpuscular Hemoglobin 30.2, Mean Corpuscular Hemoglobin Concent 31.9L, Red Cell Distribution Width 15.8H, Platelet Count 261, Mean Platelet Volume 8.0, Neutrophils (%) (Auto) , Lymphocytes (%) (Auto) , Monocytes (%) (Auto) , Eosinophils (%) (Auto) , Basophils (%) (Auto) , Differential Total Cells Counted 100, Neutrophils % ( Manual) 89H, Lymphocytes % (Manual) 6L, Monocytes % (Manual) 4, Eosinophils % ( Manual) 0, Basophils % (Manual) 0, Band Neutrophils 1, Platelet Estimate Adequate, Platelet Morphology Normal, Hypochromasia 1+, Anisocytosis 1+, Prothrombin Time 15.5H, Prothromb Time International Ratio 1.5H, Activated Partial Thromboplast Time 40H, Sodium Level 138, Potassium Level 4.1, Chloride Level 99, Carbon Dioxide Level 24, Anion Gap 15, Blood Urea Nitrogen 8, Creatinine 0.6L, Estimat Glomerular Filtration Rate > 60, Glucose Level 85, Calcium Level 8.6, Phosphorus Level 3.8, Magnesium Level 1.7, Total Bilirubin 0.5, Aspartate Amino Transf (AST/SGOT) 14, Alanine Aminotransferase (ALT/SGPT) 12, Alkaline Phosphatase 130H, Total Protein 7.2, Albumin 1.9L, Globulin 5.3, Albumin/Globulin Ratio 0.3L Current Medications Medications (Trade) Dose Ordered Sig/Shraddha Route PRN Reason Start Time Stop Time Status Last Admin Dose Admin Acetaminophen (Tylenol) 650 mg Q4H PRN ORAL FEVER 12/12/16 19:30 01/11/17 19:29 12/23/16 16:30 Dextrose (Dextrose 50%) STAT PRN IV Hypoglycemia 12/12/16 19:30 01/11/17 19:29 Diphenhydramine HCl (Benadryl) 25 mg Q6H PRN IVP Itching 12/22/16 10:00 01/21/17 09:59 12/27/16 09:10 Hydrocortisone (Hydrocortisone) 1 applic Q6H PRN TOPIC Itching 12/23/16 10:30 01/22/17 10:29 12/27/16 04:15 Hydromorphone HCl (Dilaudid) 0.5 mg Q3H PRN IVP Pain Score 1-3 12/26/16 20:31 01/02/17 20:30 12/26/16 16:38 Hydromorphone HCl (Dilaudid) 1 mg Q3H PRN IVP pain score 4-6 12/26/16 20:31 01/02/17 20:30 Hydromorphone HCl (Dilaudid) 2 mg Q3H PRN IVP pain score 7-10 12/26/16 20:31 01/02/17 20:30 12/27/16 04:15 Insulin Aspart (NovoLOG) EVERY 6 HOURS SUBQ 12/24/16 12:00 01/23/17 11:59 12/25/16 01:05 Lansoprazole (Prevacid) 30 mg DAILY GT 12/28/16 09:00 01/27/17 08:59 Ondansetron HCl 4 mg 4 mg Q6H PRN IVP Nausea & Vomiting 12/26/16 14:30 01/25/17 14:29 Polyethylene Glycol (Miralax) 17 gm DAILYPRN PRN ORAL Constipation 12/12/16 19:30 01/11/17 19:29 Promethazine HCl/ Codeine 5 ml 5 ml Q4H PRN ORAL For Cough 12/13/16 10:30 01/12/17 10:29 12/25/16 06:22 Sodium Chloride (Sodium Chloride 1000ml bag) 1,000 ml @ 75 mls/hr [id number] IV 12/18/16 22:15 01/17/17 22:14 12/27/16 05:38 Sodium Chloride (Sodium Chloride 1000ml bag) 1,000 ml @ 999 mls/hr Q1H1M PRN IV For hypotension SBP<85 12/26/16 16:00 01/25/17 15:59 REN WRIGHT Dec 27, 2016 11:02
--- NOTE | 2016-12-27 11:32 | General Surgery Progress Note ---
General Surgery-Progress Note Subjective Symptoms: improved Objective Last 24 Hour Vital Signs Date Time Temp Pulse Resp B/P Pulse Ox O2 Delivery O2 Flow Rate FiO2 12/27/16 08:36 84 16 40 12/27/16 08:00 40 12/27/16 08:00 66 12/27/16 08:00 98.0 79 17 110/73 99 Mechanical Ventilator 40 12/27/16 06:33 80 16 40 12/27/16 05:30 70 16 40 12/27/16 04:00 97.8 86 20 102/67 100 Mechanical Ventilator 40 12/27/16 04:00 102 12/27/16 04:00 40 12/27/16 03:01 71 16 40 12/27/16 01:20 77 16 40 12/27/16 00:00 80.0 40 12/27/16 00:00 91 12/27/16 00:00 98.3 97 19 117/77 100 Mechanical Ventilator 40 12/26/16 23:08 69 16 40 12/26/16 21:13 95 16 40 12/26/16 20:16 98.1 79 16 121/82 100 Mechanical Ventilator 40 12/26/16 20:00 84 12/26/16 18:56 96 16 40 12/26/16 16:54 97 16 40 12/26/16 16:00 98.1 78 17 119/78 100 Mechanical Ventilator 40 12/26/16 16:00 40 12/26/16 15:28 73 12/26/16 15:08 94 16 40 12/26/16 14:55 97.2 79 16 105/69 100 Mechanical Ventilator 40 12/26/16 14:48 63 16 105/67 100 Mechanical Ventilator 40 12/26/16 14:37 67 16 92/60 100 Mechanical Ventilator 40 12/26/16 14:30 62 16 85/61 100 Mechanical Ventilator 40 12/26/16 14:15 61 16 81/58 100 Mechanical Ventilator 40 12/26/16 14:00 71 16 85/60 100 Mechanical Ventilator 40 12/26/16 13:55 77 16 87/64 100 Mechanical Ventilator 40 12/26/16 13:50 88 16 103/68 100 Mechanical Ventilator 40 12/26/16 13:49 79 16 99 12/26/16 13:45 40 12/26/16 13:45 97.2 88 16 91/63 100 Mechanical Ventilator 40 I&O Intake and Output 12/26/16 12/27/16 19:00 07:00 Intake Total 2705 ml 992.5 ml Output Total 275 ml 1000 ml Balance 2430 ml -7.5 ml IV Total 2705 ml 992.5 ml Output Urine Total 175 ml 1000 ml Estimated Blood Loss 100 ml Dressing: dry Wound: clean Drains: none Cardiovascular: RSR Respiratory: clear Abdomen: soft Extremities: no edema Laboratory Tests Test 12/27/16 08:45 White Blood Count 20.5 K/UL (4.8-10.8) #H Red Blood Count 3.78 M/UL (4.70-6.10) L Hemoglobin 11.4 G/DL (14.2-18.0) L Hematocrit 35.8 % (42.0-52.0) L Mean Corpuscular Volume 95 FL (80-99) Mean Corpuscular Hemoglobin 30.2 PG (27.0-31.0) Mean Corpuscular Hemoglobin Concent 31.9 G/DL (32.0-36.0) L Red Cell Distribution Width 15.8 % (11.6-14.8) H Platelet Count 261 K/UL (150-450) Mean Platelet Volume 8.0 FL (6.5-10.1) Neutrophils (%) (Auto) % (45.0-75.0) Lymphocytes (%) (Auto) % (20.0-45.0) Monocytes (%) (Auto) % (1.0-10.0) Eosinophils (%) (Auto) % (0.0-3.0) Basophils (%) (Auto) % (0.0-2.0) Differential Total Cells Counted 100 Neutrophils % (Manual) 89 % (45-75) H Lymphocytes % (Manual) 6 % (20-45) L Monocytes % (Manual) 4 % (1-10) Eosinophils % (Manual) 0 % (0-3) Basophils % (Manual) 0 % (0-2) Band Neutrophils 1 % (0-8) Platelet Estimate Adequate Platelet Morphology Normal Hypochromasia 1+ Anisocytosis 1+ Prothrombin Time 15.5 SEC (9.30-11.50) H Prothromb Time International Ratio 1.5 (0.9-1.1) H Activated Partial Thromboplast Time 40 SEC (23-33) H Sodium Level 138 mEQ/L (135-145) Potassium Level 4.1 mEQ/L (3.4-4.9) Chloride Level 99 mEQ/L (98-107) Carbon Dioxide Level 24 mEQ/L (20-30) Anion Gap 15 (5-15) Blood Urea Nitrogen 8 mg/dL (7-23) Creatinine 0.6 mg/dL (0.7-1.2) L Estimat Glomerular Filtration Rate > 60 mL/min (>60) Glucose Level 85 mg/dL (74-106) Calcium Level 8.6 mg/dL (8.6-10.2) Phosphorus Level 3.8 mg/dL (2.5-4.8) Magnesium Level 1.7 mg/dL (1.7-2.5) Total Bilirubin 0.5 mg/dL (0.0-1.2) Aspartate Amino Transf (AST/SGOT) 14 U/L (5-40) Alanine Aminotransferase (ALT/SGPT) 12 U/L (3-41) Alkaline Phosphatase 130 U/L (40-129) H Total Protein 7.2 g/dL (6.6-8.7) Albumin 1.9 g/dL (3.5-5.2) L Globulin 5.3 g/dL Albumin/Globulin Ratio 0.3 (1.0-2.7) L Assessment Additional Comments Pt is doing well from his laparoscopic rt colectomy, mild distention as expected Plan Additional Comments Will keep NPO for now pending return of bowel function Josep Terrazas MD Dec 27, 2016 11:32
[2016-12-27 12:00] VITALS: BP 102/71
--- NOTE | 2016-12-27 12:32 | Infectious Diseases Prog Note ---
Assessment/Plan Assessment/Plan ASSESSMENT: 66 y/o male with: // Probable recurrent HCAP / VAP r/o empyema - SCx : not sent - CXR 12/13: Fairly extensive infiltrate throughout the right lung persists, may be slightly worse. Left lung and pleural space remain clear - h/o MDR ACB, PSA - CT 11/14 :Extensive pneumonia involving both lungs as described above. 5-6 cm cavitary focus suspicious for lung abscess in the right upper lobe. // Recurrent pleural effusion no evid of empyema or malignancy - SP thoracentesis 12/13 - - SP thoracentesis 11/21 neg empyema // Recurrent MDR-ACB UTI , SP RX - h/o yeast, VRE // Leukocytosis - post op // HIV and Hep B/C : neg // Colon mass,TV adenoma SP right hemicolectomy 12/26 SP Colonoscopy with biopsy and snare polypectomy 12/18 CT: Large cecal mass and other polypoid colonic masses, detailed previously , again demonstrated // Acute on chronic VDRF SP trach, PEG - h/o COPD // Severe pulmonary HTN / grade I diastolic dysfunction / mod TR // Pulmonary nodules // h/o chronic RLE DVT - repeat doppler neg // Thrombocytosis // [place] resident // MDRO colonized // NKDA // Full Code PLAN: - monitor pt off of AB Rx 12/27 SP cefoxitin darío-op - 12/24 SP tygacil d# 10 SP IV vancomycin, amikacin d# 2 - monitor CBC, temperatures - monitor BMP - monitor CXR - vent support, trach care, aspiration precautions - GenSx:following - colon tumor :path :P Subjective Allergies: Coded Allergies: No Known Allergies (Unverified , 06/17/16) Subjective afebrile Objective Vital Signs Last 24 Hour Vital Signs Date Time Temp Pulse Resp B/P Pulse Ox O2 Delivery O2 Flow Rate FiO2 12/27/16 12:00 66 12/27/16 12:00 40 12/27/16 11:04 93 19 40 12/27/16 08:36 84 16 40 12/27/16 08:00 40 12/27/16 08:00 66 12/27/16 08:00 98.0 79 17 110/73 99 Mechanical Ventilator 40 12/27/16 06:33 80 16 40 12/27/16 05:30 70 16 40 6/23/17 04:00 97.8 86 20 102/67 100 Mechanical Ventilator 40 12/27/16 04:00 102 12/27/16 04:00 40 12/27/16 03:01 71 16 40 12/27/16 01:20 77 16 40 12/27/16 00:00 80.0 40 12/27/16 00:00 91 12/27/16 00:00 98.3 97 19 117/77 100 Mechanical Ventilator 40 12/26/16 23:08 69 16 40 12/26/16 21:13 95 16 40 12/26/16 20:16 98.1 79 16 121/82 100 Mechanical Ventilator 40 12/26/16 20:00 84 12/26/16 18:56 96 16 40 12/26/16 16:54 97 16 40 12/26/16 16:00 98.1 78 17 119/78 100 Mechanical Ventilator 40 12/26/16 16:00 40 12/26/16 15:28 73 12/26/16 15:08 94 16 40 12/26/16 14:55 97.2 79 16 105/69 100 Mechanical Ventilator 40 12/26/16 14:48 63 16 105/67 100 Mechanical Ventilator 40 12/26/16 14:37 67 16 92/60 100 Mechanical Ventilator 40 12/26/16 14:30 62 16 85/61 100 Mechanical Ventilator 40 12/26/16 14:15 61 16 81/58 100 Mechanical Ventilator 40 12/26/16 14:00 71 16 85/60 100 Mechanical Ventilator 40 12/26/16 13:55 77 16 87/64 100 Mechanical Ventilator 40 12/26/16 13:50 88 16 103/68 100 Mechanical Ventilator 40 12/26/16 13:49 79 16 99 12/26/16 13:45 40 12/26/16 13:45 97.2 88 16 91/63 100 Mechanical Ventilator 40 Height (Feet): 5 Height (Inches): 9.00 Weight (Pounds): 130 HEENT: anicteric Respiratory/Chest: normal breath sounds Cardiovascular: normal peripheral pulses Abdomen: soft, non tender Laboratory Tests Test 12/27/16 08:45 White Blood Count 20.5 K/UL (4.8-10.8) #H Red Blood Count 3.78 M/UL (4.70-6.10) L Hemoglobin 11.4 G/DL (14.2-18.0) L Hematocrit 35.8 % (42.0-52.0) L Mean Corpuscular Volume 95 FL (80-99) Mean Corpuscular Hemoglobin 30.2 PG (27.0-31.0) Mean Corpuscular Hemoglobin Concent 31.9 G/DL (32.0-36.0) L Red Cell Distribution Width 15.8 % (11.6-14.8) H Platelet Count 261 K/UL (150-450) Mean Platelet Volume 8.0 FL (6.5-10.1) Neutrophils (%) (Auto) % (45.0-75.0) Lymphocytes (%) (Auto) % (20.0-45.0) Monocytes (%) (Auto) % (1.0-10.0) Eosinophils (%) (Auto) % (0.0-3.0) Basophils (%) (Auto) % (0.0-2.0) Differential Total Cells Counted 100 Neutrophils % (Manual) 89 % (45-75) H Lymphocytes % (Manual) 6 % (20-45) L Monocytes % (Manual) 4 % (1-10) Eosinophils % (Manual) 0 % (0-3) Basophils % (Manual) 0 % (0-2) Band Neutrophils 1 % (0-8) Platelet Estimate Adequate Platelet Morphology Normal Hypochromasia 1+ Anisocytosis 1+ Prothrombin Time 15.5 SEC (9.30-11.50) H Prothromb Time International Ratio 1.5 (0.9-1.1) H Activated Partial Thromboplast Time 40 SEC (23-33) H Sodium Level 138 mEQ/L (135-145) Potassium Level 4.1 mEQ/L (3.4-4.9) Chloride Level 99 mEQ/L (98-107) Carbon Dioxide Level 24 mEQ/L (20-30) Anion Gap 15 (5-15) Blood Urea Nitrogen 8 mg/dL (7-23) Creatinine 0.6 mg/dL (0.7-1.2) L Estimat Glomerular Filtration Rate > 60 mL/min (>60) Glucose Level 85 mg/dL (74-106) Calcium Level 8.6 mg/dL (8.6-10.2) Phosphorus Level 3.8 mg/dL (2.5-4.8) Magnesium Level 1.7 mg/dL (1.7-2.5) Total Bilirubin 0.5 mg/dL (0.0-1.2) Aspartate Amino Transf (AST/SGOT) 14 U/L (5-40) Alanine Aminotransferase (ALT/SGPT) 12 U/L (3-41) Alkaline Phosphatase 130 U/L (40-129) H Total Protein 7.2 g/dL (6.6-8.7) Albumin 1.9 g/dL (3.5-5.2) L Globulin 5.3 g/dL Albumin/Globulin Ratio 0.3 (1.0-2.7) L Current Medications Medications (Trade) Dose Ordered Sig/Shraddha Route PRN Reason Start Time Stop Time Status Last Admin Dose Admin Acetaminophen (Tylenol) 650 mg Q4H PRN ORAL FEVER 12/12/16 19:30 01/11/17 19:29 12/23/16 16:30 Dextrose (Dextrose 50%) STAT PRN IV Hypoglycemia 12/12/16 19:30 01/11/17 19:29 Diphenhydramine HCl (Benadryl) 25 mg Q6H PRN IVP Itching 12/22/16 10:00 01/21/17 09:59 12/27/16 09:10 Hydrocortisone (Hydrocortisone) 1 applic Q6H PRN TOPIC Itching 12/23/16 10:30 01/22/17 10:29 12/27/16 04:15 Hydromorphone HCl (Dilaudid) 0.5 mg Q3H PRN IVP Pain Score 1-3 12/26/16 20:31 01/02/17 20:30 12/26/16 16:38 Hydromorphone HCl (Dilaudid) 1 mg Q3H PRN IVP pain score 4-6 12/26/16 20:31 01/02/17 20:30 Hydromorphone HCl (Dilaudid) 2 mg Q3H PRN IVP pain score 7-10 12/26/16 20:31 01/02/17 20:30 12/27/16 12:16 Insulin Aspart (NovoLOG) EVERY 6 HOURS SUBQ 12/24/16 12:00 01/23/17 11:59 12/25/16 01:05 Lansoprazole (Prevacid) 30 mg DAILY GT 12/28/16 09:00 01/27/17 08:59 Ondansetron HCl 4 mg 4 mg Q6H PRN IVP Nausea & Vomiting 12/26/16 14:30 01/25/17 14:29 Polyethylene Glycol (Miralax) 17 gm DAILYPRN PRN ORAL Constipation 12/12/16 19:30 01/11/17 19:29 Promethazine HCl/ Codeine 5 ml 5 ml Q4H PRN ORAL For Cough 12/13/16 10:30 01/12/17 10:29 12/25/16 06:22 Sodium Chloride (Sodium Chloride 1000ml bag) 1,000 ml @ 75 mls/hr [id number] IV 12/18/16 22:15 01/17/17 22:14 12/27/16 05:38 Sodium Chloride (Sodium Chloride 1000ml bag) 1,000 ml @ 999 mls/hr Q1H1M PRN IV For hypotension SBP<85 12/26/16 16:00 01/25/17 15:59 KIMBERLEE HINKLE M.D. Dec 27, 2016 12:32
--- NOTE | 2016-12-27 13:00 | GI Progress Note ---
Assessment/Plan Problems: (1) Mass of cecum ICD Codes: K63.9 - Disease of intestine, unspecified SNOMED: 163430735 (2) Severe anemia ICD Codes: D64.9 - Anemia, unspecified SNOMED: 786839401 (3) Colonic mass ICD Codes: K63.9 - Disease of intestine, unspecified SNOMED: 828504828 (4) Gastric mass ICD Codes: K31.9 - Disease of stomach and duodenum, unspecified SNOMED: 121706120 (5) LFTs abnormal ICD Codes: R79.89 - Other specified abnormal findings of blood chemistry SNOMED: 971446527 (6) DVT (deep venous thrombosis) ICD Codes: I82.409 - Acute embolism and thrombosis of unspecified deep veins of unspecified lower extremity SNOMED: 109486864 (7) ENMA (iron deficiency anemia) ICD Codes: D50.9 - Iron deficiency anemia, unspecified SNOMED: 35753701 (8) Dysphagia ICD Codes: R13.10 - Dysphagia, unspecified SNOMED: 27188481, 279735045 (9) Anemia ICD Codes: D64.9 - Anemia, unspecified SNOMED: 988989498 Status: unchanged Status Narrative Discussed with Dr. Quiroz. Assessment/Plan S/P COLONOSCOPY SUMMARY OF FINDINGS: 1. Cecal mass status post biopsy, see above for details. 2. 12 colonic polyps S/P laparoscopic rt colectomy follow surgical recs >> NPO for now pending return of bowel function. monitor H&H, transfuse prn ppi hydrocortisone prn fu labs recommend patient for f/u colonoscopy given multiple polyps Subjective Subjective limited, nonverbal Objective Last 24 Hour Vital Signs Date Time Temp Pulse Resp B/P Pulse Ox O2 Delivery O2 Flow Rate FiO2 12/27/16 12:00 66 12/27/16 12:00 40 12/27/16 11:04 93 19 40 12/27/16 08:36 84 16 40 12/27/16 08:00 40 12/27/16 08:00 66 12/27/16 08:00 98.0 79 17 110/73 99 Mechanical Ventilator 40 12/27/16 06:33 80 16 40 12/27/16 05:30 70 16 40 12/27/16 04:00 97.8 86 20 102/67 100 Mechanical Ventilator 40 12/27/16 04:00 102 12/27/16 04:00 40 12/27/16 03:01 71 16 40 12/27/16 01:20 77 16 40 12/27/16 00:00 80.0 40 12/27/16 00:00 91 12/27/16 00:00 98.3 97 19 117/77 100 Mechanical Ventilator 40 12/26/16 23:08 69 16 40 12/26/16 21:13 95 16 40 12/26/16 20:16 98.1 79 16 121/82 100 Mechanical Ventilator 40 12/26/16 20:00 84 12/26/16 18:56 96 16 40 12/26/16 16:54 97 16 40 12/26/16 16:00 98.1 78 17 119/78 100 Mechanical Ventilator 40 12/26/16 16:00 40 12/26/16 15:28 73 12/26/16 15:08 94 16 40 12/26/16 14:55 97.2 79 16 105/69 100 Mechanical Ventilator 40 12/26/16 14:48 63 16 105/67 100 Mechanical Ventilator 40 12/26/16 14:37 67 16 92/60 100 Mechanical Ventilator 40 12/26/16 14:30 62 16 85/61 100 Mechanical Ventilator 40 12/26/16 14:15 61 16 81/58 100 Mechanical Ventilator 40 12/26/16 14:00 71 16 85/60 100 Mechanical Ventilator 40 12/26/16 13:55 77 16 87/64 100 Mechanical Ventilator 40 12/26/16 13:50 88 16 103/68 100 Mechanical Ventilator 40 12/26/16 13:49 79 16 99 12/26/16 13:45 40 12/26/16 13:45 97.2 88 16 91/63 100 Mechanical Ventilator 40 Intake and Output 12/26/16 12/27/16 19:00 07:00 Intake Total 2705 ml 992.5 ml Output Total 275 ml 1000 ml Balance 2430 ml -7.5 ml IV Total 2705 ml 992.5 ml Output Urine Total 175 ml 1000 ml Estimated Blood Loss 100 ml Laboratory Tests Test 12/27/16 08:45 White Blood Count 20.5 K/UL (4.8-10.8) #H Red Blood Count 3.78 M/UL (4.70-6.10) L Hemoglobin 11.4 G/DL (14.2-18.0) L Hematocrit 35.8 % (42.0-52.0) L Mean Corpuscular Volume 95 FL (80-99) Mean Corpuscular Hemoglobin 30.2 PG (27.0-31.0) Mean Corpuscular Hemoglobin Concent 31.9 G/DL (32.0-36.0) L Red Cell Distribution Width 15.8 % (11.6-14.8) H Platelet Count 261 K/UL (150-450) Mean Platelet Volume 8.0 FL (6.5-10.1) Neutrophils (%) (Auto) % (45.0-75.0) Lymphocytes (%) (Auto) % (20.0-45.0) Monocytes (%) (Auto) % (1.0-10.0) Eosinophils (%) (Auto) % (0.0-3.0) Basophils (%) (Auto) % (0.0-2.0) Differential Total Cells Counted 100 Neutrophils % (Manual) 89 % (45-75) H Lymphocytes % (Manual) 6 % (20-45) L Monocytes % (Manual) 4 % (1-10) Eosinophils % (Manual) 0 % (0-3) Basophils % (Manual) 0 % (0-2) Band Neutrophils 1 % (0-8) Platelet Estimate Adequate Platelet Morphology Normal Hypochromasia 1+ Anisocytosis 1+ Prothrombin Time 15.5 SEC (9.30-11.50) H Prothromb Time International Ratio 1.5 (0.9-1.1) H Activated Partial Thromboplast Time 40 SEC (23-33) H Sodium Level 138 mEQ/L (135-145) Potassium Level 4.1 mEQ/L (3.4-4.9) Chloride Level 99 mEQ/L (98-107) Carbon Dioxide Level 24 mEQ/L (20-30) Anion Gap 15 (5-15) Blood Urea Nitrogen 8 mg/dL (7-23) Creatinine 0.6 mg/dL (0.7-1.2) L Estimat Glomerular Filtration Rate > 60 mL/min (>60) Glucose Level 85 mg/dL (74-106) Calcium Level 8.6 mg/dL (8.6-10.2) Phosphorus Level 3.8 mg/dL (2.5-4.8) Magnesium Level 1.7 mg/dL (1.7-2.5) Total Bilirubin 0.5 mg/dL (0.0-1.2) Aspartate Amino Transf (AST/SGOT) 14 U/L (5-40) Alanine Aminotransferase (ALT/SGPT) 12 U/L (3-41) Alkaline Phosphatase 130 U/L (40-129) H Total Protein 7.2 g/dL (6.6-8.7) Albumin 1.9 g/dL (3.5-5.2) L Globulin 5.3 g/dL Albumin/Globulin Ratio 0.3 (1.0-2.7) L Height (Feet): 5 Height (Inches): 9.00 Weight (Pounds): 130 General Appearance: no apparent distress, alert Cardiovascular: normal rate Respiratory/Chest: no respiratory distress, other - mech vent Abdominal Exam: incision site - s/p lap cholectomy, GT site - c/d/i Angeles Galloway N.P. Dec 27, 2016 13:00
--- NOTE | 2016-12-27 13:11 | 48 Hour Post Anesthesia Eval ---
Post Anesthesia Evaluation Procedure: Laparoscopic hand assysted R hemycolectomy Date of Evaluation: Dec 27, 2016 Time of Evaluation: 13:09 Blood Pressure Systolic: 104 0: 56 Pulse Rate: 78 Respiratory Rate: 12 Temperature (Fahrenheit): 97.5 O2 Sat by Pulse Oximetry: 98 Airway: other - tracheostomy in place Nausea: No Vomiting: No Pain Intensity: 3 Hydration Status: adequate Cardiopulmonary Status: stable on vent Mental Status/LOC: patient returned to baseline Follow-up Care/Observations: n/a Post-Anesthesia Complications: none Follow-up care needed: N/A MARLINE ALFONSO M.D. Dec 27, 2016 13:11
--- NOTE | 2016-12-27 14:44 | Cardiac Electrophysiology PN ---
Assessment/Plan Status Narrative Technically difficult study due to poor acoustic windows. Normal left ventricular chamber size, systolic function and wall motion. Left ventricular ejection fraction estimated to be 55-60 %. No evidence of left ventricular hypertrophy. No evidence of pericardial fat or effusion. Mild bi-atrial enlargement by 2D. Focal aortic valve sclerosis with adequate cusp excursion Thickened mitral valve leaflets with normal excursion. Mitral annulus and aortic root calcification. Pulmonic valve is well visualized. Normal tricuspid valve structure. IVC is normal in size with minimal physiologic collapse. RA pressure of 10mmHg. Assessment/Plan 1. Sinus tachycardia due to sepsis and respiratory failure. 2. Hypotension, Will give iv fluid if persists. 3. Severe chronic obstructive pulmonary disease and pulmonary hypertension.On Vent. 4. Pneumonia, on IV antibiotics. WBC increased to 20K today. 5. Ventilator-dependent respiratory failure, status post tracheostomy on vent 6. Status post percutaneous endoscopic gastrostomy placement. 7. 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 S/P Laparoscopic right [place]- colectomy 12/26/16 . 8. Pleural effusion, status post thoracentesis on 11/21/2016 and 12/14/16 KATHY RN Subjective Subjective Alert in JORDAN on vent via trach.Remained in SR.No chest pain or SOB.Complains of itching. Objective Last 24 Hour Vital Signs Date Time Temp Pulse Resp B/P Pulse Ox O2 Delivery O2 Flow Rate FiO2 12/27/16 13:11 78 12 98 12/27/16 12:00 66 12/27/16 12:00 98.8 84 20 102/71 100 Mechanical Ventilator 40 12/27/16 12:00 40 12/27/16 11:04 93 19 40 12/27/16 08:36 84 16 40 12/27/16 08:00 40 12/27/16 08:00 66 12/27/16 08:00 98.0 79 17 110/73 99 Mechanical Ventilator 40 12/27/16 06:33 80 16 40 12/27/16 05:30 70 16 40 12/27/16 04:00 97.8 86 20 102/67 100 Mechanical Ventilator 40 12/27/16 04:00 102 12/27/16 04:00 40 12/27/16 03:01 71 16 40 12/27/16 01:20 77 16 40 12/27/16 00:00 80.0 40 12/27/16 00:00 91 12/27/16 00:00 98.3 97 19 117/77 100 Mechanical Ventilator 40 12/26/16 23:08 69 16 40 12/26/16 21:13 95 16 40 12/26/16 20:16 98.1 79 16 121/82 100 Mechanical Ventilator 40 12/26/16 20:00 84 12/26/16 18:56 96 16 40 12/26/16 16:54 97 16 40 12/26/16 16:00 98.1 78 17 119/78 100 Mechanical Ventilator 40 12/26/16 16:00 40 12/26/16 15:28 73 12/26/16 15:08 94 16 40 12/26/16 14:55 97.2 79 16 105/69 100 Mechanical Ventilator 40 12/26/16 14:48 63 16 105/67 100 Mechanical Ventilator 40 Intake and Output 12/26/16 12/27/16 19:00 07:00 Intake Total 2705 ml 992.5 ml Output Total 275 ml 1000 ml Balance 2430 ml -7.5 ml IV Total 2705 ml 992.5 ml Output Urine Total 175 ml 1000 ml Estimated Blood Loss 100 ml Laboratory Tests Test 12/27/16 08:45 White Blood Count 20.5 K/UL (4.8-10.8) #H Red Blood Count 3.78 M/UL (4.70-6.10) L Hemoglobin 11.4 G/DL (14.2-18.0) L Hematocrit 35.8 % (42.0-52.0) L Mean Corpuscular Volume 95 FL (80-99) Mean Corpuscular Hemoglobin 30.2 PG (27.0-31.0) Mean Corpuscular Hemoglobin Concent 31.9 G/DL (32.0-36.0) L Red Cell Distribution Width 15.8 % (11.6-14.8) H Platelet Count 261 K/UL (150-450) Mean Platelet Volume 8.0 FL (6.5-10.1) Neutrophils (%) (Auto) % (45.0-75.0) Lymphocytes (%) (Auto) % (20.0-45.0) Monocytes (%) (Auto) % (1.0-10.0) Eosinophils (%) (Auto) % (0.0-3.0) Basophils (%) (Auto) % (0.0-2.0) Differential Total Cells Counted 100 Neutrophils % (Manual) 89 % (45-75) H Lymphocytes % (Manual) 6 % (20-45) L Monocytes % (Manual) 4 % (1-10) Eosinophils % (Manual) 0 % (0-3) Basophils % (Manual) 0 % (0-2) Band Neutrophils 1 % (0-8) Platelet Estimate Adequate Platelet Morphology Normal Hypochromasia 1+ Anisocytosis 1+ Prothrombin Time 15.5 SEC (9.30-11.50) H Prothromb Time International Ratio 1.5 (0.9-1.1) H Activated Partial Thromboplast Time 40 SEC (23-33) H Sodium Level 138 mEQ/L (135-145) Potassium Level 4.1 mEQ/L (3.4-4.9) Chloride Level 99 mEQ/L (98-107) Carbon Dioxide Level 24 mEQ/L (20-30) Anion Gap 15 (5-15) Blood Urea Nitrogen 8 mg/dL (7-23) Creatinine 0.6 mg/dL (0.7-1.2) L Estimat Glomerular Filtration Rate > 60 mL/min (>60) Glucose Level 85 mg/dL (74-106) Calcium Level 8.6 mg/dL (8.6-10.2) Phosphorus Level 3.8 mg/dL (2.5-4.8) Magnesium Level 1.7 mg/dL (1.7-2.5) Total Bilirubin 0.5 mg/dL (0.0-1.2) Aspartate Amino Transf (AST/SGOT) 14 U/L (5-40) Alanine Aminotransferase (ALT/SGPT) 12 U/L (3-41) Alkaline Phosphatase 130 U/L (40-129) H Total Protein 7.2 g/dL (6.6-8.7) Albumin 1.9 g/dL (3.5-5.2) L Globulin 5.3 g/dL Albumin/Globulin Ratio 0.3 (1.0-2.7) L Objective HEAD AND NECK: No JVD.Tracheostomy intact. LUNGS: Have coarse rhonchi. CARDIOVASCULAR: Tachycardic S1, S2 with no gallop or murmur. ABDOMEN: Soft. Gtube intact. Has 3 Laparoscopy incisions with out bleeding or hematoma. EXTREMITIES: One plus edema. OSWALD HILLS Dec 27, 2016 14:44
[2016-12-27 16:00] VITALS: BP_SYST 106; BP_SYST 117; BP_DIAS 76; BP_DIAS 80
--- NOTE | 2016-12-27 17:18 | Internal Med Progress Note ---
Subjective Date of Service: Dec 27, 2016 Physician Name TsangTadeo dockery Attending Physician Steve Rader MD Current Medications Medications (Trade) Dose Ordered Sig/Shraddha Route PRN Reason Start Time Stop Time Status Last Admin Dose Admin Acetaminophen (Tylenol) 650 mg Q4H PRN ORAL FEVER 12/12/16 19:30 01/11/17 19:29 12/23/16 16:30 Dextrose (Dextrose 50%) STAT PRN IV Hypoglycemia 12/12/16 19:30 01/11/17 19:29 Diphenhydramine HCl (Benadryl) 25 mg Q6H PRN IVP Itching 12/22/16 10:00 01/21/17 09:59 12/27/16 09:10 Hydrocortisone (Hydrocortisone) 1 applic Q6H PRN TOPIC Itching 12/23/16 10:30 01/22/17 10:29 12/27/16 04:15 Hydromorphone HCl (Dilaudid) 0.5 mg Q3H PRN IVP Pain Score 1-3 12/26/16 20:31 01/02/17 20:30 12/26/16 16:38 Hydromorphone HCl (Dilaudid) 1 mg Q3H PRN IVP pain score 4-6 12/26/16 20:31 01/02/17 20:30 Hydromorphone HCl (Dilaudid) 2 mg Q3H PRN IVP pain score 7-10 12/26/16 20:31 01/02/17 20:30 12/27/16 12:16 Insulin Aspart (NovoLOG) EVERY 6 HOURS SUBQ 12/24/16 12:00 01/23/17 11:59 12/25/16 01:05 Lansoprazole (Prevacid) 30 mg DAILY GT 12/28/16 09:00 01/27/17 08:59 Ondansetron HCl 4 mg 4 mg Q6H PRN IVP Nausea & Vomiting 12/26/16 14:30 01/25/17 14:29 Polyethylene Glycol (Miralax) 17 gm DAILYPRN PRN ORAL Constipation 12/12/16 19:30 01/11/17 19:29 Promethazine HCl/ Codeine 5 ml 5 ml Q4H PRN ORAL For Cough 12/13/16 10:30 01/12/17 10:29 12/25/16 06:22 Sodium Chloride (Sodium Chloride 1000ml bag) 1,000 ml @ 75 mls/hr [id number] IV 12/18/16 22:15 01/17/17 22:14 12/27/16 05:38 Sodium Chloride (Sodium Chloride 1000ml bag) 1,000 ml @ 999 mls/hr Q1H1M PRN IV For hypotension SBP<85 12/26/16 16:00 01/25/17 15:59 Allergies: Coded Allergies: No Known Allergies (Unverified , 06/17/16) ROS Limited/Unobtainable: Yes Subjective 66 YO M admitted for shortness of breath and tachycardia. Intubated and sedated. JORDAN. Cover for Int Med-Dr Rader. S/P right hemicolectomy 12/26/16 Objective Last Vital Signs Date Time Temp Pulse Resp B/P Pulse Ox O2 Delivery O2 Flow Rate FiO2 12/27/16 17:07 88 16 40 12/27/16 13:11 98 12/27/16 12:00 98.8 102/71 Mechanical Ventilator 12/27/16 00:00 80.0 Laboratory Tests Test 12/27/16 08:45 White Blood Count 20.5 K/UL (4.8-10.8) #H Red Blood Count 3.78 M/UL (4.70-6.10) L Hemoglobin 11.4 G/DL (14.2-18.0) L Hematocrit 35.8 % (42.0-52.0) L Mean Corpuscular Volume 95 FL (80-99) Mean Corpuscular Hemoglobin 30.2 PG (27.0-31.0) Mean Corpuscular Hemoglobin Concent 31.9 G/DL (32.0-36.0) L Red Cell Distribution Width 15.8 % (11.6-14.8) H Platelet Count 261 K/UL (150-450) Mean Platelet Volume 8.0 FL (6.5-10.1) Neutrophils (%) (Auto) % (45.0-75.0) Lymphocytes (%) (Auto) % (20.0-45.0) Monocytes (%) (Auto) % (1.0-10.0) Eosinophils (%) (Auto) % (0.0-3.0) Basophils (%) (Auto) % (0.0-2.0) Differential Total Cells Counted 100 Neutrophils % (Manual) 89 % (45-75) H Lymphocytes % (Manual) 6 % (20-45) L Monocytes % (Manual) 4 % (1-10) Eosinophils % (Manual) 0 % (0-3) Basophils % (Manual) 0 % (0-2) Band Neutrophils 1 % (0-8) Platelet Estimate Adequate Platelet Morphology Normal Hypochromasia 1+ Anisocytosis 1+ Prothrombin Time 15.5 SEC (9.30-11.50) H Prothromb Time International Ratio 1.5 (0.9-1.1) H Activated Partial Thromboplast Time 40 SEC (23-33) H Sodium Level 138 mEQ/L (135-145) Potassium Level 4.1 mEQ/L (3.4-4.9) Chloride Level 99 mEQ/L (98-107) Carbon Dioxide Level 24 mEQ/L (20-30) Anion Gap 15 (5-15) Blood Urea Nitrogen 8 mg/dL (7-23) Creatinine 0.6 mg/dL (0.7-1.2) L Estimat Glomerular Filtration Rate > 60 mL/min (>60) Glucose Level 85 mg/dL (74-106) Calcium Level 8.6 mg/dL (8.6-10.2) Phosphorus Level 3.8 mg/dL (2.5-4.8) Magnesium Level 1.7 mg/dL (1.7-2.5) Total Bilirubin 0.5 mg/dL (0.0-1.2) Aspartate Amino Transf (AST/SGOT) 14 U/L (5-40) Alanine Aminotransferase (ALT/SGPT) 12 U/L (3-41) Alkaline Phosphatase 130 U/L (40-129) H Total Protein 7.2 g/dL (6.6-8.7) Albumin 1.9 g/dL (3.5-5.2) L Globulin 5.3 g/dL Albumin/Globulin Ratio 0.3 (1.0-2.7) L Intake and Output 12/26/16 12/27/16 19:00 07:00 Intake Total 2705 ml 992.5 ml Output Total 275 ml 1000 ml Balance 2430 ml -7.5 ml IV Total 2705 ml 992.5 ml Output Urine Total 175 ml 1000 ml Estimated Blood Loss 100 ml Objective General Appearance: lethargic, thin EENT: PERRL/EOMI, normal ENT inspection Neck: Trach; non-tender, normal alignment, supple Cardiovascular: normal peripheral pulses, regular rhythm, no gallop/murmur, no JVD, tachycardia Respiratory/Chest: Mech vent; chest wall non-tender, crackles/rales, rhonchi - bilaterally, expiratory wheezing Abdomen: normal bowel sounds, non tender, soft, no organomegaly, no mass Neurologic: oil process stillman II-XII grossly normal, no motor/sensory deficits Skin: normal pigmentation, warm/dry Assessment/Plan Problem List: (1) UTI (urinary tract infection) Assessment & Plan: See ID note. Resolved with antibiotics. (2) Tachycardia (3) SOB (shortness of breath) Assessment & Plan: Due to pneurmonia. (4) Hypertension (5) Acute and chronic respiratory failure Assessment & Plan: Currently on Mech vent. See pulmonary note. (6) Emphysema lung (7) Lung abscess (8) Mass of colon (9) Pneumonia Assessment & Plan: see pulmonary and ID note. (10) Mass of cecum Assessment & Plan: See surgery note. S/P Right hemicolectomy 12/26/16 Status: not improved TADEO TSANG Dec 27, 2016 17:17
[2016-12-27 20:00] VITALS: BP 110/75
--- NOTE | 2016-12-27 20:54 | Wound Care Consultation ---
Wound Assessment Wound Assessment #1: Wound Number: #1 Wound Present on Admission: Yes New Wound: No Status Change of Wound: No Wound Location Body Site: perineal area Wound Type: chemical burn - with erosion ,scattered with partial thickness loss. Nisha Test: Does not Nisha Wound Thickness: Partial Thickness Percent of Wound Ventura/Red: 100 Wound Drainage Amount: None Wound Drainage Odor: None/Absent Tissue Surrounding Wound: Erythemic Wound General Appearance: Reddened Wound Assessment #2: Wound Number: #2 Wound Present on Admission: Yes New Wound: No Status Change of Wound: No Wound Location Body Site Modif: mid Wound Location Body Site: sacral Wound Type: pressure ulcer Nisha Test: Does not Nisha Pressure Ulcer Stage: II - scattered. Wound Thickness: Partial Thickness Wound Length: 2.0 Wound Width: 2.0 Wound Depth: 0.1 Percent of Wound Ventura/Red: 100 Wound Drainage Description: Serosanguineous Wound Drainage Amount: Scant Wound Drainage Odor: None/Absent Tissue Surrounding Wound: Erythemic Wound General Appearance: Reddened Wound Comment #1 Sacral area scattered stage II pressure ulcers good progress noted , no further deterioration noted, current wound care is effective at this time. #2 Perineal area chemical burn with erosion. Good progress noted. No deterioration noted at this time. upon reassessment noted good progress, current treatment is effective, no further deterioration noted. Recommendation -Sacral Scattered stage II pressure ulcers Cleanse with saline, pat dry, apply Triad cream, cover with bordered gauze daily and PRN soiled/dislodged -Chemical burn with erosion Cleanse with saline, pat dry, apply Triad cream, cover with bordered gauze daily and PRN soiled/dislodged -Keep clean and dry -Low air loss mattress -Turn and reposition -Optimize nutrition -Offload both heels -Avoid shear or friction -Assess and notify MD if any further changes in skin noted. MELISSA BEAUCHAMP Dec 27, 2016 20:54
[2016-12-28] VITALS: BP 112/67
--- NOTE | 2016-12-28 | Operative Note - Dictated ---
DATE OF OPERATION: 12/26/2016 PREOPERATIVE DIAGNOSIS: Large cecal tumor with high-grade dysplasia. POSTOPERATIVE DIAGNOSIS: Large cecal tumor with high-grade dysplasia. OPERATION PERFORMED: Laparoscopic right hemicolectomy. ATTENDING SURGEON: Landon Farfan M.D. DRY LUMBER GRADER SURGEON: Viktor Baptiste M.D. ANESTHESIOLOGIST: Dr. Givens. ANESTHESIA: General IRON WORKER. WOUND CLASSIFICATION: Class 3. ANTIBIOTICS: Ancef and Flagyl given 1 hour prior to cut time. ESTIMATED BLOOD LOSS: 25 mL. IV FLUIDS: Please see anesthesia records. COMPLICATIONS: None. DRAINS: None. COUNTS: Sponge and needle count correct x2. INDICATIONS FOR PROCEDURE: This is a 66-year-old male who was noted on prior CT to have a large cecal tumor. The patient recently had a colonoscopy, which identified polyps that were successfully removed and a large cecal tumor that could not be removed, which biopsies were taken of. Pathology identified that the polyps were tubular adenomas without any high-grade dysplasia. Although, polyps were removed without complication with clear bases. The large tumor and cecum pathology identified high-grade dysplasia with potential of malignant cells at other portions of the tumor. At this time, given the size of the tumor and the pathology, decision to right hemicolectomy was indicated. The risks, benefits, and alternatives were discussed with the patient and the patient's family in detail at bedside. Consent was obtained and in the chart. OPERATIVE NOTE: The patient was taken to the operating room and placed on the operating table in supine position. Bilateral arms tucked. All bony prominences well padded with gel pads. Appropriate time-out was taken identifying the patient, procedure, operative staff, and surgical staff. General anesthesia was induced and the patient was ventilated through his prior tracheostomy. A Johnson catheter was inserted. SCDs were placed. The abdomen was then prepped and draped in the standard surgical fashion. We began by making an incision in the left mid abdomen approximately 2 cm left lateral to the umbilicus. Using a fine tipped trocar and a 5 mm laparoscope, the abdomen was entered under direct visualization without complication. The abdomen was insufflated 12 to 15 mmHg. The patient tolerated insufflation well. This was a 5 mm trocar. The patient's abdomen was inspected and no injury from trocar placement was identified. At this time, trocar was up sized to a 12 mm Nacho trocar. Following this, secondary trocars were placed under direct visualization, a 5 mm in the suprapubic area followed by a 12 mm in the epigastric region. At this time, the liver was inspected and no abnormalities were identified. The remainder of the abdomen was inspected and no abnormalities were identified. The cecum was identified and grasped. The cecal tumor could be palpated with laparoscopic forceps and identified in the cecum. At this time, the cecum was elevated towards the right lower quadrant and then ileocolic vascular branch was identified. The vascular bundle was taken down to the root of mesentery and the artery and the vein were dissected out using a laparoscopic energy device. Once the artery and vein were identified through the mesentery, the ileocolic artery was ligated using a laparoscopic stapling device at the root. Following this, appropriate area of transection on the terminal ileum and ascending colon were identified. The mesentery was scored in the direction of both of these proposed division sites. The terminal ileum had some adhesions to the pelvis and the right lower quadrant, which were dissected free using energy device and scissors as appropriate. Once this was complete, the mesentery was divided towards the proposed area of the terminal ileum to be stapled for the resection. No significant bleeding was encountered using the energy device in dissecting through the mesentery. Once the mesentery was divided, a laparoscopic linear stapler was used to divide the terminal ileum at the planned portion, which was approximately 8 cm from the ileocecal valve. Once this was completed, the remainder of the mesentery was divided using the laparoscopic energy device towards the proposed division site on the ascending colon. Once this was completed, the ascending colon was divided using a laparoscopic linear device at the proposed division site. At this time, the white line of Toldt was dissected out and the specimen was removed in whole including the cecum, appendix, terminal ileum, and portion of the ascending colon for appropriate right hemicolectomy including the mesentery to the vessels. This specimen was placed in the pelvis and attention was turned to the dissection site and hemostasis achieved with electrocautery. At this time, we began planning for the intracorporeal anastomosis. Unfortunately, the patient had a faulty segment of the hepatic flexure and transcolon making it fairly difficult for anastomosis without significant mobilization of the hepatic flexure and the transverse colon. The remainder of the white line of Toldt was divided towards the hepatic flexure and the hepatic flexure was dissected downwards for a tension-free anastomosis. The terminal ileum was easily brought up towards the remaining ascending colon for a tension-free anastomosis. A 2-0 silk suture was placed approximately 1 cm from the prior staple lines on both the ascending colon and terminal ileum. Appropriate rotation was identified to make sure there was no kinking in the mesentery or the bowel. A second 2-0 silk suture was placed approximately 5 cm distal to the staple line for traction. Once this was complete, electrocautery and blunt dissection was used to make two small enterotomies in the ascending colon and terminal ileum. A laparoscopic linear stapling device was entered through these enterotomies and fired. This created a anastomosis without any bleeding or complications. Once this was complete, the remaining portion of the open enterotomy was stapled closed using a laparoscopic linear staple device. The remaining segment was removed and sent to pathology along with the specimen. At this time, the staple line was evaluated and noted to be intact without any leakage. Hemostasis was noted. Minimum amount of irrigation suction was used to evacuate a few small blood clots. Tisseel was placed over the staple line. At this time, we began our conclusion of the procedure. The specimen was then removed from the abdomen through the initial trocar placement in the left mid abdomen. This required a little bit of extension of the initial incision. Once the specimen was removed, it was sent to pathology for review. The abdomen was reinspected and no abnormalities noted. Secondary trocars were removed under direct visualization. The fascia of the larger port sites were closed using a #2-0 PDS suture followed by closure of the skin using a 4-0 Monocryl suture. The patient tolerated the procedure well and was taken to the recovery room in stable condition. No immediate postoperative complications were noted. Landon Farfan M.D. DR: JANELLE JOB#: [id number] CC: REGULO
[2016-12-28] MEDS: Hydromorphone 0.5mg/0.5ml inj IVP PRN ×4 (00:59→23:42)
[2016-12-28 04:00] VITALS: BP 120/75
[2016-12-28] MEDS: NovoLOG Insulin Flexpen SUBQ SCH ×5 (06:00→23:53)
[2016-12-28 06:47] LABS: BASOPHILS % (AUTO) 0.4 % (0.0-2.0); EOSINOPHILS % (AUTO) 1.7 % (0.0-3.0); LYMPHOCYTES % (AUTO) 8.2 % (20.0-45.0); MEAN CORPUSCULAR HEMOGLOBIN 29.8 PG (27.0-31.0); MEAN CORPUSCULAR HGB CONC 31.2 G/DL (32.0-36.0); MEAN CORPUSCULAR VOLUME 96 FL (80-99); MEAN PLATELET VOLUME 8.8 FL (6.5-10.1); MONOCYTES % (AUTO) 6.8 % (1.0-10.0); PLATELET COUNT 217 K/UL (150-450); WHITE BLOOD COUNT 14.2 K/UL (4.8-10.8)
[2016-12-28 07:14] LABS: ALANINE AMINOTRANSFERASE 10 U/L (3-41); ALBUMIN/GLOBULIN RATIO 0.2 (1.0-2.7); ANION GAP 15 (5-15); ASPARTATE AMINO TRANSFERASE 15 U/L (5-40); CALCIUM 8.6 mg/dL (8.6-10.2); CARBON DIOXIDE 22 mEQ/L (20-30); CHLORIDE 102 mEQ/L (98-107); CREATININE 0.5 mg/dL (0.7-1.2); GLOMERULAR FILTRATION RATE > 60 mL/min (>60); HEMOLYSIS 10; MAGNESIUM 1.8 mg/dL (1.7-2.5); PHOSPHORUS 3.2 mg/dL (2.5-4.8); POTASSIUM 4.3 mEQ/L (3.4-4.9); SODIUM 139 mEQ/L (135-145); TOTAL PROTEIN 6.8 g/dL (6.6-8.7)
[2016-12-28 08:00] VITALS: BP 108/71
--- NOTE | 2016-12-28 08:51 | General Progress Note ---
Assessment/Plan Problem List: (1) multiple colonic polyps (2) Mass of cecum ICD Codes: K63.9 - Disease of intestine, unspecified SNOMED: 913880222 (3) Severe anemia ICD Codes: D64.9 - Anemia, unspecified SNOMED: 540544079 (4) COPD exacerbation ICD Codes: J44.1 - Chronic obstructive pulmonary disease with (acute) exacerbation SNOMED: 867982036, [id number] Assessment/Plan POD #1 post op care repeat colonoscopy in 6 months Subjective ROS Limited/Unobtainable: No Allergies: Coded Allergies: No Known Allergies (Unverified , 06/17/16) Objective Last 24 Hour Vital Signs Date Time Temp Pulse Resp B/P Pulse Ox O2 Delivery O2 Flow Rate FiO2 12/28/16 08:00 98.8 86 16 108/71 100 Mechanical Ventilator 40 12/28/16 07:10 70 17 40 12/28/16 07:10 70 16 Mechanical Ventilator 40 12/28/16 05:13 66 16 40 12/28/16 04:00 40 12/28/16 04:00 97.9 87 16 120/75 100 12/28/16 04:00 87 12/28/16 02:58 85 16 40 12/28/16 01:30 79 16 40 12/28/16 01:29 97.7 12/28/16 00:00 97.9 75 18 112/67 12/28/16 00:00 100 12/28/16 00:00 40 12/27/16 23:04 68 16 40 12/27/16 21:01 76 16 40 12/27/16 20:00 80 12/27/16 20:00 97.7 71 16 110/75 99 12/27/16 20:00 40 12/27/16 19:53 84 16 40 12/27/16 17:07 88 16 40 12/27/16 16:36 68 12/27/16 16:35 40 12/27/16 16:00 98.6 90 21 106/80 100 Mechanical Ventilator 40 12/27/16 15:07 85 16 40 12/27/16 13:11 78 12 98 12/27/16 12:59 94 16 40 12/27/16 12:00 66 12/27/16 12:00 98.8 84 20 102/71 100 Mechanical Ventilator 40 12/27/16 12:00 40 12/27/16 11:04 93 19 40 Intake and Output 12/27/16 12/28/16 19:00 07:00 Intake Total 610 ml 1080 ml Output Total 350 ml 550 ml Balance 260 ml 530 ml Free Water 600 ml IV Total 900 ml Tube Feeding 10 ml 180 ml Output Urine Total 350 ml 550 ml # Bowel Movements 2 Laboratory Tests 12/28/16 04:31: White Blood Count 14.2H, Red Blood Count 3.60L, Hemoglobin 10.7L, Hematocrit 34.4L, Mean Corpuscular Volume 96, Mean Corpuscular Hemoglobin 29.8, Mean Corpuscular Hemoglobin Concent 31.2L, Red Cell Distribution Width 16.0H, Platelet Count 217, Mean Platelet Volume 8.8, Neutrophils (%) (Auto) 83.0H, Lymphocytes (%) (Auto) 8.2L, Monocytes (%) (Auto) 6.8, Eosinophils (%) (Auto) 1.7, Basophils (%) (Auto) 0.4, Sodium Level 139, Potassium Level 4.3, Chloride Level 102, Carbon Dioxide Level 22, Anion Gap 15, Blood Urea Nitrogen 8, Creatinine 0.5L, Estimat Glomerular Filtration Rate > 60, Glucose Level 73L, Calcium Level 8.6, Phosphorus Level 3.2, Magnesium Level 1.8, Total Bilirubin 0.3, Aspartate Amino Transf (AST/SGOT) 15, Alanine Aminotransferase (ALT/SGPT) 10, Alkaline Phosphatase 119, Total Protein 6.8, Albumin 1.5L, Globulin 5.3, Albumin/Globulin Ratio 0.2L Height (Feet): 5 Height (Inches): 9.00 Weight (Pounds): 133 General Appearance: lethargic EENT: normal ENT inspection Neck: supple Cardiovascular: normal rate Respiratory/Chest: decreased breath sounds Abdomen: other - post surgical Extremities: non-tender JULIANNE ESTEVEZ Dec 28, 2016 08:51
--- NOTE | 2016-12-28 10:31 | General Surgery Progress Note ---
General Surgery-Progress Note Subjective Day of Surgery: po day 2 sp lap assisted right hemicolectomy Symptoms: pain same, other Additional Comments tolerating tube feeds at 20 cc h. still no flatus or bm yet Objective Last 24 Hour Vital Signs Date Time Temp Pulse Resp B/P Pulse Ox O2 Delivery O2 Flow Rate FiO2 12/28/16 08:00 98.8 86 16 108/71 100 Mechanical Ventilator 40 12/28/16 07:10 70 17 40 12/28/16 07:10 70 16 Mechanical Ventilator 40 12/28/16 05:13 66 16 40 12/28/16 04:00 40 12/28/16 04:00 97.9 87 16 120/75 100 12/28/16 04:00 87 12/28/16 02:58 85 16 40 12/28/16 01:30 79 16 40 12/28/16 01:29 97.7 12/28/16 00:00 97.9 75 18 112/67 12/28/16 00:00 100 12/28/16 00:00 40 12/27/16 23:04 68 16 40 12/27/16 21:01 76 16 40 12/27/16 20:00 80 12/27/16 20:00 97.7 71 16 110/75 99 12/27/16 20:00 40 12/27/16 19:53 84 16 40 12/27/16 17:07 88 16 40 12/27/16 16:36 68 12/27/16 16:35 40 12/27/16 16:00 98.6 90 21 106/80 100 Mechanical Ventilator 40 12/27/16 15:07 85 16 40 12/27/16 13:11 78 12 98 12/27/16 12:59 94 16 40 12/27/16 12:00 66 12/27/16 12:00 98.8 84 20 102/71 100 Mechanical Ventilator 40 12/27/16 12:00 40 12/27/16 11:04 93 19 40 I&O Intake and Output 12/27/16 12/28/16 19:00 07:00 Intake Total 610 ml 1080 ml Output Total 350 ml 550 ml Balance 260 ml 530 ml Free Water 600 ml IV Total 900 ml Tube Feeding 10 ml 180 ml Output Urine Total 350 ml 550 ml # Bowel Movements 2 Dressing: dry Wound: clean Respiratory: clear Abdomen: soft, absent bowel sounds Extremities: no edema, no tenderness, no cyanosis Laboratory Tests Test 12/28/16 04:31 White Blood Count 14.2 K/UL (4.8-10.8) H Red Blood Count 3.60 M/UL (4.70-6.10) L Hemoglobin 10.7 G/DL (14.2-18.0) L Hematocrit 34.4 % (42.0-52.0) L Mean Corpuscular Volume 96 FL (80-99) Mean Corpuscular Hemoglobin 29.8 PG (27.0-31.0) Mean Corpuscular Hemoglobin Concent 31.2 G/DL (32.0-36.0) L Red Cell Distribution Width 16.0 % (11.6-14.8) H Platelet Count 217 K/UL (150-450) Mean Platelet Volume 8.8 FL (6.5-10.1) Neutrophils (%) (Auto) 83.0 % (45.0-75.0) H Lymphocytes (%) (Auto) 8.2 % (20.0-45.0) L Monocytes (%) (Auto) 6.8 % (1.0-10.0) Eosinophils (%) (Auto) 1.7 % (0.0-3.0) Basophils (%) (Auto) 0.4 % (0.0-2.0) Sodium Level 139 mEQ/L (135-145) Potassium Level 4.3 mEQ/L (3.4-4.9) Chloride Level 102 mEQ/L (98-107) Carbon Dioxide Level 22 mEQ/L (20-30) Anion Gap 15 (5-15) Blood Urea Nitrogen 8 mg/dL (7-23) Creatinine 0.5 mg/dL (0.7-1.2) L Estimat Glomerular Filtration Rate > 60 mL/min (>60) Glucose Level 73 mg/dL (74-106) L Calcium Level 8.6 mg/dL (8.6-10.2) Phosphorus Level 3.2 mg/dL (2.5-4.8) Magnesium Level 1.8 mg/dL (1.7-2.5) Total Bilirubin 0.3 mg/dL (0.0-1.2) Aspartate Amino Transf (AST/SGOT) 15 U/L (5-40) Alanine Aminotransferase (ALT/SGPT) 10 U/L (3-41) Alkaline Phosphatase 119 U/L (40-129) Total Protein 6.8 g/dL (6.6-8.7) Albumin 1.5 g/dL (3.5-5.2) L Globulin 5.3 g/dL Albumin/Globulin Ratio 0.2 (1.0-2.7) L Additional Comments stable post op course. increase activity, advance feeds as calin ALEX LAY Dec 28, 2016 10:31
[2016-12-28 12:00] VITALS: BP 114/74
--- NOTE | 2016-12-28 12:58 | Internal Med Progress Note ---
Subjective Date of Service: Dec 28, 2016 Physician Name Verdin,Tadeo Attending Physician Steve Rader MD Current Medications Medications (Trade) Dose Ordered Sig/Shraddha Route PRN Reason Start Time Stop Time Status Last Admin Dose Admin Acetaminophen (Tylenol) 650 mg Q4H PRN ORAL FEVER 12/12/16 19:30 01/11/17 19:29 12/23/16 16:30 Dextrose (Dextrose 50%) STAT PRN IV Hypoglycemia 12/12/16 19:30 01/11/17 19:29 Diphenhydramine HCl (Benadryl) 25 mg Q6H PRN IVP Itching 12/22/16 10:00 01/21/17 09:59 12/27/16 09:10 Hydrocortisone (Hydrocortisone) 1 applic Q6H PRN TOPIC Itching 12/23/16 10:30 01/22/17 10:29 12/27/16 04:15 Hydromorphone HCl (Dilaudid) 0.5 mg Q3H PRN IVP Pain Score 1-3 12/26/16 20:31 01/02/17 20:30 12/28/16 08:17 Hydromorphone HCl (Dilaudid) 1 mg Q3H PRN IVP pain score 4-6 12/26/16 20:31 01/02/17 20:30 Hydromorphone HCl (Dilaudid) 2 mg Q3H PRN IVP pain score 7-10 12/26/16 20:31 01/02/17 20:30 12/27/16 12:16 Insulin Aspart (NovoLOG) EVERY 6 HOURS SUBQ 12/24/16 12:00 01/23/17 11:59 12/25/16 01:05 Lansoprazole (Prevacid) 30 mg DAILY GT 12/28/16 09:00 01/27/17 08:59 12/28/16 08:16 Ondansetron HCl 4 mg 4 mg Q6H PRN IVP Nausea & Vomiting 12/26/16 14:30 01/25/17 14:29 Polyethylene Glycol (Miralax) 17 gm DAILYPRN PRN ORAL Constipation 12/12/16 19:30 01/11/17 19:29 Promethazine HCl/ Codeine 5 ml 5 ml Q4H PRN ORAL For Cough 12/13/16 10:30 01/12/17 10:29 12/25/16 06:22 Sodium Chloride (Sodium Chloride 1000ml bag) 1,000 ml @ 75 mls/hr [id number] IV 12/18/16 22:15 01/17/17 22:14 12/28/16 08:16 Sodium Chloride (Sodium Chloride 1000ml bag) 1,000 ml @ 999 mls/hr Q1H1M PRN IV For hypotension SBP<85 12/26/16 16:00 01/25/17 15:59 Allergies: Coded Allergies: No Known Allergies (Unverified , 06/17/16) ROS Limited/Unobtainable: Yes Subjective 66 YO M admitted for shortness of breath and tachycardia. Intubated and sedated. JORDAN. Cover for Int Med-Dr Rader. S/P right hemicolectomy 12/26/16 Objective Last Vital Signs Date Time Temp Pulse Resp B/P Pulse Ox O2 Delivery O2 Flow Rate FiO2 12/28/16 10:58 90 17 40 12/28/16 08:00 98.8 108/71 100 Mechanical Ventilator 12/27/16 00:00 80.0 Laboratory Tests Test 12/28/16 04:31 White Blood Count 14.2 K/UL (4.8-10.8) H Red Blood Count 3.60 M/UL (4.70-6.10) L Hemoglobin 10.7 G/DL (14.2-18.0) L Hematocrit 34.4 % (42.0-52.0) L Mean Corpuscular Volume 96 FL (80-99) Mean Corpuscular Hemoglobin 29.8 PG (27.0-31.0) Mean Corpuscular Hemoglobin Concent 31.2 G/DL (32.0-36.0) L Red Cell Distribution Width 16.0 % (11.6-14.8) H Platelet Count 217 K/UL (150-450) Mean Platelet Volume 8.8 FL (6.5-10.1) Neutrophils (%) (Auto) 83.0 % (45.0-75.0) H Lymphocytes (%) (Auto) 8.2 % (20.0-45.0) L Monocytes (%) (Auto) 6.8 % (1.0-10.0) Eosinophils (%) (Auto) 1.7 % (0.0-3.0) Basophils (%) (Auto) 0.4 % (0.0-2.0) Sodium Level 139 mEQ/L (135-145) Potassium Level 4.3 mEQ/L (3.4-4.9) Chloride Level 102 mEQ/L (98-107) Carbon Dioxide Level 22 mEQ/L (20-30) Anion Gap 15 (5-15) Blood Urea Nitrogen 8 mg/dL (7-23) Creatinine 0.5 mg/dL (0.7-1.2) L Estimat Glomerular Filtration Rate > 60 mL/min (>60) Glucose Level 73 mg/dL (74-106) L Calcium Level 8.6 mg/dL (8.6-10.2) Phosphorus Level 3.2 mg/dL (2.5-4.8) Magnesium Level 1.8 mg/dL (1.7-2.5) Total Bilirubin 0.3 mg/dL (0.0-1.2) Aspartate Amino Transf (AST/SGOT) 15 U/L (5-40) Alanine Aminotransferase (ALT/SGPT) 10 U/L (3-41) Alkaline Phosphatase 119 U/L (40-129) Total Protein 6.8 g/dL (6.6-8.7) Albumin 1.5 g/dL (3.5-5.2) L Globulin 5.3 g/dL Albumin/Globulin Ratio 0.2 (1.0-2.7) L Intake and Output 12/27/16 12/28/16 19:00 07:00 Intake Total 610 ml 1080 ml Output Total 350 ml 550 ml Balance 260 ml 530 ml Free Water 600 ml IV Total 900 ml Tube Feeding 10 ml 180 ml Output Urine Total 350 ml 550 ml # Bowel Movements 2 Objective General Appearance: lethargic, thin EENT: PERRL/EOMI, normal ENT inspection Neck: Trach; non-tender, normal alignment, supple Cardiovascular: normal peripheral pulses, regular rhythm, no gallop/murmur, no JVD, tachycardia Respiratory/Chest: Mech vent; chest wall non-tender, crackles/rales, rhonchi - bilaterally, expiratory wheezing Abdomen: normal bowel sounds, non tender, soft, no organomegaly, no mass Neurologic: foam rubber molder II-XII grossly normal, no motor/sensory deficits Skin: normal pigmentation, warm/dry Assessment/Plan Problem List: (1) UTI (urinary tract infection) Assessment & Plan: See ID note. Resolved with antibiotics. (2) Tachycardia (3) SOB (shortness of breath) Assessment & Plan: Due to pneurmonia. (4) Hypertension (5) Acute and chronic respiratory failure Assessment & Plan: Currently on Mech vent. See pulmonary note. (6) Emphysema lung (7) Lung abscess (8) Mass of colon (9) Pneumonia Assessment & Plan: see pulmonary and ID note. (10) Mass of cecum Assessment & Plan: See surgery note. S/P Right hemicolectomy 12/26/16 Status: not improved TADEO VERDIN Dec 28, 2016 12:58
--- NOTE | 2016-12-28 13:58 | Cardiac Electrophysiology PN ---
Assessment/Plan Status Narrative Technically difficult study due to poor acoustic windows. Normal left ventricular chamber size, systolic function and wall motion. Left ventricular ejection fraction estimated to be 55-60 %. No evidence of left ventricular hypertrophy. No evidence of pericardial fat or effusion. Mild bi-atrial enlargement by 2D. Focal aortic valve sclerosis with adequate cusp excursion Thickened mitral valve leaflets with normal excursion. Mitral annulus and aortic root calcification. Pulmonic valve is well visualized. Normal tricuspid valve structure. IVC is normal in size with minimal physiologic collapse. RA pressure of 10mmHg. Assessment/Plan 1. Sinus tachycardia due to sepsis and respiratory failure.Improving 2. Hypotension, Resolved. 3. Severe chronic obstructive pulmonary disease and pulmonary hypertension.On Vent. 4. Pneumonia, on IV antibiotics. WBC decreased from 20K to 14K today. 5. Ventilator-dependent respiratory failure, status post tracheostomy on vent 6. Status post percutaneous endoscopic gastrostomy placement. 7. 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 S/P Laparoscopic right [place]- colectomy 12/26/16 . 8. Pleural effusion, status post thoracentesis on 11/21/2016 and 12/14/16 KATHY RN Subjective Subjective Alert in JORDAN on vent via trach.No chest pain or SOB. PEG Feeding was resumed. Objective Last 24 Hour Vital Signs Date Time Temp Pulse Resp B/P Pulse Ox O2 Delivery O2 Flow Rate FiO2 12/28/16 12:00 98.1 73 17 114/74 100 Mechanical Ventilator 40 12/28/16 12:00 40 12/28/16 12:00 86 12/28/16 10:58 90 17 40 12/28/16 09:10 89 16 40 12/28/16 08:00 78 12/28/16 08:00 40 12/28/16 08:00 98.8 86 16 108/71 100 Mechanical Ventilator 40 12/28/16 07:10 70 17 40 12/28/16 07:10 70 16 Mechanical Ventilator 40 12/28/16 05:13 66 16 40 12/28/16 04:00 40 12/28/16 04:00 97.9 87 16 120/75 100 12/28/16 04:00 87 12/28/16 02:58 85 16 40 12/28/16 01:30 79 16 40 12/28/16 01:29 97.7 12/28/16 00:00 97.9 75 18 112/67 12/28/16 00:00 100 12/28/16 00:00 40 12/27/16 23:04 68 16 40 12/27/16 21:01 76 16 40 12/27/16 20:00 80 12/27/16 20:00 97.7 71 16 110/75 99 12/27/16 20:00 40 12/27/16 19:53 84 16 40 12/27/16 17:07 88 16 40 12/27/16 16:36 68 12/27/16 16:35 40 12/27/16 16:00 98.6 90 21 106/80 100 Mechanical Ventilator 40 12/27/16 15:07 85 16 40 Intake and Output 12/27/16 12/28/16 19:00 07:00 Intake Total 610 ml 1080 ml Output Total 350 ml 550 ml Balance 260 ml 530 ml Free Water 600 ml IV Total 900 ml Tube Feeding 10 ml 180 ml Output Urine Total 350 ml 550 ml # Bowel Movements 2 Laboratory Tests Test 12/28/16 04:31 White Blood Count 14.2 K/UL (4.8-10.8) H Red Blood Count 3.60 M/UL (4.70-6.10) L Hemoglobin 10.7 G/DL (14.2-18.0) L Hematocrit 34.4 % (42.0-52.0) L Mean Corpuscular Volume 96 FL (80-99) Mean Corpuscular Hemoglobin 29.8 PG (27.0-31.0) Mean Corpuscular Hemoglobin Concent 31.2 G/DL (32.0-36.0) L Red Cell Distribution Width 16.0 % (11.6-14.8) H Platelet Count 217 K/UL (150-450) Mean Platelet Volume 8.8 FL (6.5-10.1) Neutrophils (%) (Auto) 83.0 % (45.0-75.0) H Lymphocytes (%) (Auto) 8.2 % (20.0-45.0) L Monocytes (%) (Auto) 6.8 % (1.0-10.0) Eosinophils (%) (Auto) 1.7 % (0.0-3.0) Basophils (%) (Auto) 0.4 % (0.0-2.0) Sodium Level 139 mEQ/L (135-145) Potassium Level 4.3 mEQ/L (3.4-4.9) Chloride Level 102 mEQ/L (98-107) Carbon Dioxide Level 22 mEQ/L (20-30) Anion Gap 15 (5-15) Blood Urea Nitrogen 8 mg/dL (7-23) Creatinine 0.5 mg/dL (0.7-1.2) L Estimat Glomerular Filtration Rate > 60 mL/min (>60) Glucose Level 73 mg/dL (74-106) L Calcium Level 8.6 mg/dL (8.6-10.2) Phosphorus Level 3.2 mg/dL (2.5-4.8) Magnesium Level 1.8 mg/dL (1.7-2.5) Total Bilirubin 0.3 mg/dL (0.0-1.2) Aspartate Amino Transf (AST/SGOT) 15 U/L (5-40) Alanine Aminotransferase (ALT/SGPT) 10 U/L (3-41) Alkaline Phosphatase 119 U/L (40-129) Total Protein 6.8 g/dL (6.6-8.7) Albumin 1.5 g/dL (3.5-5.2) L Globulin 5.3 g/dL Albumin/Globulin Ratio 0.2 (1.0-2.7) L Objective HEAD AND NECK: No JVD.Tracheostomy intact. LUNGS: Have coarse rhonchi. CARDIOVASCULAR: Tachycardic S1, S2 with no gallop or murmur. ABDOMEN: Soft. Gtube intact. 3 Laparoscopy incisions no bleeding EXTREMITIES: One plus edema. OSWALD HILLS Dec 28, 2016 13:58
[2016-12-28 16:00] VITALS: BP 109/63
--- NOTE | 2016-12-28 16:59 | Pulmonology Progress Note ---
Assessment/Plan Problems: (1) Acute and chronic respiratory failure (2) Feeding by G-tube (3) Emphysema lung (4) Pleural effusion on right Respiratory: monitor respiratory rate Cardiac: continue to monitor HR/BP Renal: F/U I&O, keep IV fluid Infectious Disease: check cultures Gastrointestinal: continue feedings/current rate Endocrine: monitor blood sugar, check HgA1C, continue sliding scale insulin Hematologic: monitor H/H, transfuse if hgb<8.5 Neurologic: keep patient comfortable Affect: PRN ativan 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, consultants, registered nurse hh case manager Subjective ROS Limited/Unobtainable: No Constitutional: Reports: no symptoms HEENT: Repors: no symptoms Respiratory: Reports: no symptoms Cardiovascular: Reports: no symptoms Allergies: Coded Allergies: No Known Allergies (Unverified , 06/17/16) Objective Last 24 Hour Vital Signs Date Time Temp Pulse Resp B/P Pulse Ox O2 Delivery O2 Flow Rate FiO2 12/28/16 15:10 88 17 40 12/28/16 13:10 67 16 40 12/28/16 12:00 98.1 73 17 114/74 100 Mechanical Ventilator 40 12/28/16 12:00 40 12/28/16 12:00 61 12/28/16 10:58 90 17 40 12/28/16 09:10 89 16 40 12/28/16 08:00 78 12/28/16 08:00 40 12/28/16 08:00 98.8 86 16 108/71 100 Mechanical Ventilator 40 12/28/16 07:10 70 17 40 12/28/16 07:10 70 16 Mechanical Ventilator 40 12/28/16 05:13 66 16 40 12/28/16 04:00 40 12/28/16 04:00 97.9 87 16 120/75 100 12/28/16 04:00 87 12/28/16 02:58 85 16 40 12/28/16 01:30 79 16 40 12/28/16 01:29 97.7 12/28/16 00:00 97.9 75 18 112/67 12/28/16 00:00 100 12/28/16 00:00 40 12/27/16 23:04 68 16 40 12/27/16 21:01 76 16 40 12/27/16 20:00 80 12/27/16 20:00 97.7 71 16 110/75 99 12/27/16 20:00 40 12/27/16 19:53 84 16 40 12/27/16 17:07 88 16 40 Intake and Output 12/27/16 12/28/16 19:00 07:00 Intake Total 610 ml 1080 ml Output Total 350 ml 550 ml Balance 260 ml 530 ml Free Water 600 ml IV Total 900 ml Tube Feeding 10 ml 180 ml Output Urine Total 350 ml 550 ml # Bowel Movements 2 Objective General Appearance: cachetic Lines, tubes and drains: peripheral HEENT: normocephalic, atraumatic Neck: non-tender, normal alignment Respiratory/Chest: chest wall non-tender, lungs clear Breasts: no masses Cardiovascular/Chest: normal peripheral pulses Abdomen: normal bowel sounds, non tender Genitourinary/Rectal: normal genital exam Extremities: normal range of motion Laboratory Tests 12/28/16 04:31: White Blood Count 14.2H, Red Blood Count 3.60L, Hemoglobin 10.7L, Hematocrit 34.4L, Mean Corpuscular Volume 96, Mean Corpuscular Hemoglobin 29.8, Mean Corpuscular Hemoglobin Concent 31.2L, Red Cell Distribution Width 16.0H, Platelet Count 217, Mean Platelet Volume 8.8, Neutrophils (%) (Auto) 83.0H, Lymphocytes (%) (Auto) 8.2L, Monocytes (%) (Auto) 6.8, Eosinophils (%) (Auto) 1.7, Basophils (%) (Auto) 0.4, Sodium Level 139, Potassium Level 4.3, Chloride Level 102, Carbon Dioxide Level 22, Anion Gap 15, Blood Urea Nitrogen 8, Creatinine 0.5L, Estimat Glomerular Filtration Rate > 60, Glucose Level 73L, Calcium Level 8.6, Phosphorus Level 3.2, Magnesium Level 1.8, Total Bilirubin 0.3, Aspartate Amino Transf (AST/SGOT) 15, Alanine Aminotransferase (ALT/SGPT) 10, Alkaline Phosphatase 119, Total Protein 6.8, Albumin 1.5L, Globulin 5.3, Albumin/Globulin Ratio 0.2L Current Medications Medications (Trade) Dose Ordered Sig/Shraddha Route PRN Reason Start Time Stop Time Status Last Admin Dose Admin Acetaminophen (Tylenol) 650 mg Q4H PRN ORAL FEVER 12/12/16 19:30 01/11/17 19:29 12/23/16 16:30 Dextrose (Dextrose 50%) STAT PRN IV Hypoglycemia 12/12/16 19:30 01/11/17 19:29 Diphenhydramine HCl (Benadryl) 25 mg Q6H PRN IVP Itching 12/22/16 10:00 01/21/17 09:59 12/27/16 09:10 Hydrocortisone (Hydrocortisone) 1 applic Q6H PRN TOPIC Itching 12/23/16 10:30 01/22/17 10:29 12/27/16 04:15 Hydromorphone HCl (Dilaudid) 0.5 mg Q3H PRN IVP Pain Score 1-3 12/26/16 20:31 01/02/17 20:30 12/28/16 08:17 Hydromorphone HCl (Dilaudid) 1 mg Q3H PRN IVP pain score 4-6 12/26/16 20:31 01/02/17 20:30 Hydromorphone HCl (Dilaudid) 2 mg Q3H PRN IVP pain score 7-10 12/26/16 20:31 01/02/17 20:30 12/27/16 12:16 Insulin Aspart (NovoLOG) EVERY 6 HOURS SUBQ 12/24/16 12:00 01/23/17 11:59 12/25/16 01:05 Lansoprazole (Prevacid) 30 mg DAILY GT 12/28/16 09:00 01/27/17 08:59 12/28/16 08:16 Ondansetron HCl 4 mg 4 mg Q6H PRN IVP Nausea & Vomiting 12/26/16 14:30 01/25/17 14:29 Polyethylene Glycol (Miralax) 17 gm DAILYPRN PRN ORAL Constipation 12/12/16 19:30 01/11/17 19:29 Promethazine HCl/ Codeine 5 ml 5 ml Q4H PRN ORAL For Cough 12/13/16 10:30 01/12/17 10:29 12/25/16 06:22 Sodium Chloride (Sodium Chloride 1000ml bag) 1,000 ml @ 75 mls/hr [id number] IV 12/18/16 22:15 01/17/17 22:14 12/28/16 08:16 Sodium Chloride (Sodium Chloride 1000ml bag) 1,000 ml @ 999 mls/hr Q1H1M PRN IV For hypotension SBP<85 12/26/16 16:00 01/25/17 15:59 REN WRIGHT Dec 28, 2016 16:59
[2016-12-28 20:00] VITALS: BP 95/64
[2016-12-29] VITALS: BP 103/71
[2016-12-29 04:00] VITALS: BP 131/71
[2016-12-29] MEDS: NovoLOG Insulin Flexpen SUBQ SCH ×3 (05:39→17:53)
[2016-12-29] MEDS: DiphenhydrAMINE 50mg/ml Inj IVP PRN (05:56)
[2016-12-29 07:45] LABS: BASOPHILS % (AUTO) 0.8 % (0.0-2.0); LYMPHOCYTES % (AUTO) 16.3 % (20.0-45.0); MEAN CORPUSCULAR HEMOGLOBIN 29.5 PG (27.0-31.0); MEAN CORPUSCULAR HGB CONC 31.3 G/DL (32.0-36.0); MEAN CORPUSCULAR VOLUME 94 FL (80-99); MONOCYTES % (AUTO) 9.6 % (1.0-10.0); NEUTROPHILS % (AUTO) 68.2 % (45.0-75.0); PLATELET COUNT 247 K/UL (150-450); RED BLOOD COUNT 2.96 M/UL (4.70-6.10); RED CELL DISTRIBUTION WIDTH 15.9 % (11.6-14.8); WHITE BLOOD COUNT 6.2 K/UL (4.8-10.8)
[2016-12-29] MEDS: DuoNeb 0.5-3(2.5)mg/3ml neb HHN PRN ×3 (07:57→22:52)
[2016-12-29 08:00] VITALS: BP 114/74
[2016-12-29 08:04] LABS: ANION GAP 12 (5-15); CALCIUM 8.1 mg/dL (8.6-10.2); CARBON DIOXIDE 25 mEQ/L (20-30); CHLORIDE 102 mEQ/L (98-107); CREATININE 0.4 mg/dL (0.7-1.2); GLOMERULAR FILTRATION RATE > 60 mL/min (>60); HEMOLYSIS 12; POTASSIUM 3.3 mEQ/L (3.4-4.9); SODIUM 139 mEQ/L (135-145)
--- NOTE | 2016-12-29 08:19 | General Progress Note ---
Assessment/Plan Problem List: (1) multiple colonic polyps (2) Mass of cecum ICD Codes: K63.9 - Disease of intestine, unspecified SNOMED: 205872238 (3) Severe anemia ICD Codes: D64.9 - Anemia, unspecified SNOMED: 479365425 (4) COPD exacerbation ICD Codes: J44.1 - Chronic obstructive pulmonary disease with (acute) exacerbation SNOMED: 528861254, [id number] Assessment/Plan POD #2 post op care fu path repeat colonoscopy in 6 months Subjective ROS Limited/Unobtainable: No Allergies: Coded Allergies: No Known Allergies (Unverified , 06/17/16) Objective Last 24 Hour Vital Signs Date Time Temp Pulse Resp B/P Pulse Ox O2 Delivery O2 Flow Rate FiO2 12/29/16 07:58 68 17 100 Mechanical Ventilator 40 12/29/16 07:58 40 12/29/16 06:39 86 17 40 12/29/16 05:30 74 17 40 12/29/16 04:00 40 12/29/16 04:00 58 12/29/16 04:00 97.8 59 16 131/71 100 Mechanical Ventilator 80.0 40 12/29/16 04:00 40 12/29/16 02:45 60 16 40 12/29/16 00:37 65 16 40 12/29/16 00:12 97.7 12/29/16 00:00 97.7 88 18 103/71 100 Mechanical Ventilator 80.0 40 12/29/16 00:00 101 12/29/16 00:00 40 12/28/16 22:53 69 16 40 12/28/16 21:00 60 16 40 12/28/16 20:00 97.7 82 18 95/64 100 Mechanical Ventilator 80.0 40 12/28/16 20:00 40 12/28/16 20:00 79 12/28/16 18:58 90 18 40 12/28/16 17:10 87 16 40 12/28/16 16:00 98.2 72 16 109/63 100 Mechanical Ventilator 40 12/28/16 16:00 40 12/28/16 16:00 66 12/28/16 15:10 88 17 40 12/28/16 13:10 67 16 40 12/28/16 12:00 98.1 73 17 114/74 100 Mechanical Ventilator 40 12/28/16 12:00 40 12/28/16 12:00 61 12/28/16 10:58 90 17 40 12/28/16 09:10 89 16 40 Intake and Output 12/28/16 12/29/16 19:00 07:00 Intake Total 1171 ml 1290 ml Output Total 350 ml 350 ml Balance 821 ml 940 ml Free Water 50 ml 150 ml IV Total 881 ml 900 ml Tube Feeding 240 ml 240 ml Output Urine Total 350 ml 350 ml Laboratory Tests 12/29/16 05:38: White Blood Count 6.2#, Red Blood Count 2.96L, Hemoglobin 8.7L, Hematocrit 28.0L , Mean Corpuscular Volume 94, Mean Corpuscular Hemoglobin 29.5, Mean Corpuscular Hemoglobin Concent 31.3L, Red Cell Distribution Width 15.9H, Platelet Count 247, Mean Platelet Volume 7.0, Neutrophils (%) (Auto) 68.2, Lymphocytes (%) (Auto) 16.3L, Monocytes (%) (Auto) 9.6, Eosinophils (%) (Auto) 5.0H, Basophils (%) (Auto) 0.8, Sodium Level 139, Potassium Level 3.3L, Chloride Level 102, Carbon Dioxide Level 25, Anion Gap 12, Blood Urea Nitrogen 4L, Creatinine 0.4L, Estimat Glomerular Filtration Rate > 60, Glucose Level 85, Calcium Level 8.1L Height (Feet): 5 Height (Inches): 9.00 Weight (Pounds): 132 General Appearance: no apparent distress EENT: normal ENT inspection Neck: supple Cardiovascular: normal rate Respiratory/Chest: decreased breath sounds Abdomen: normal bowel sounds, non tender, soft Extremities: non-tender JULIANNE ESTEVEZ Dec 29, 2016 08:19
--- NOTE | 2016-12-29 08:56 | Infectious Diseases Prog Note ---
Assessment/Plan Assessment/Plan ASSESSMENT: 66 y/o male with: // Probable recurrent HCAP / VAP - SCx : not sent SP Rx - CXR 12/13: Fairly extensive infiltrate throughout the right lung persists, may be slightly worse. Left lung and pleural space remain clear - h/o MDR ACB, PSA - CT 11/14 :Extensive pneumonia involving both lungs as described above. 5-6 cm cavitary focus suspicious for lung abscess in the right upper lobe. 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, VRE // HIV and Hep B/C : neg // Leukocytosis - post op, resolved, afebrile // Colon mass,TV adenoma with high grade dysplasia - SP right hemicolectomy 12/26 - SP Colonoscopy with biopsy and snare polypectomy 12/18 - CT: Large cecal mass and other polypoid colonic masses, detailed previously, again demonstrated // Acute on chronic VDRF SP trach, PEG - h/o COPD // Severe pulmonary HTN / grade I diastolic dysfunction / mod TR // Pulmonary nodules // h/o chronic RLE DVT - repeat doppler neg // Thrombocytosis // [place] resident // MDRO colonized // NKDA // Full Code PLAN: - monitor pt off of AB Rx ( 12/27 SP cefoxitin darío-op ) ( 12/24 SP tygacil d# 10 ) ( SP IV vancomycin, amikacin d# 2 ) - monitor CBC, temperatures - monitor BMP - monitor CXR - vent support, trach care, aspiration precautions - GenSx:following Subjective Allergies: Coded Allergies: No Known Allergies (Unverified , 06/17/16) Subjective remains afebrile on vent Objective Vital Signs Last 24 Hour Vital Signs Date Time Temp Pulse Resp B/P Pulse Ox O2 Delivery O2 Flow Rate FiO2 12/29/16 08:45 83 16 40 12/29/16 07:58 68 17 100 Mechanical Ventilator 40 12/29/16 07:58 40 12/29/16 06:39 86 17 40 12/29/16 05:30 74 17 40 12/29/16 04:00 40 12/29/16 04:00 58 12/29/16 04:00 97.8 59 16 131/71 100 Mechanical Ventilator 80.0 40 12/29/16 04:00 40 12/29/16 02:45 60 16 40 12/29/16 00:37 65 16 40 12/29/16 00:12 97.7 12/29/16 00:00 97.7 88 18 103/71 100 Mechanical Ventilator 80.0 40 12/29/16 00:00 101 12/29/16 00:00 40 12/28/16 22:53 69 16 40 12/28/16 21:00 60 16 40 12/28/16 20:00 97.7 82 18 95/64 100 Mechanical Ventilator 80.0 40 12/28/16 20:00 40 12/28/16 20:00 79 12/28/16 18:58 90 18 40 12/28/16 17:10 87 16 40 12/28/16 16:00 98.2 72 16 109/63 100 Mechanical Ventilator 40 12/28/16 16:00 40 12/28/16 16:00 66 12/28/16 15:10 88 17 40 12/28/16 13:10 67 16 40 12/28/16 12:00 98.1 73 17 114/74 100 Mechanical Ventilator 40 12/28/16 12:00 40 12/28/16 12:00 61 12/28/16 10:58 90 17 40 12/28/16 09:10 89 16 40 Height (Feet): 5 Height (Inches): 9.00 Weight (Pounds): 132 General Appearance: no acute distress HEENT: status post trach Respiratory/Chest: decreased breath sounds Cardiovascular: normal rate, regular rhythm Abdomen: normal bowel sounds, soft, non tender, non distended Laboratory Tests Test 12/29/16 05:38 White Blood Count 6.2 K/UL (4.8-10.8) # Red Blood Count 2.96 M/UL (4.70-6.10) L Hemoglobin 8.7 G/DL (14.2-18.0) L Hematocrit 28.0 % (42.0-52.0) L Mean Corpuscular Volume 94 FL (80-99) Mean Corpuscular Hemoglobin 29.5 PG (27.0-31.0) Mean Corpuscular Hemoglobin Concent 31.3 G/DL (32.0-36.0) L Red Cell Distribution Width 15.9 % (11.6-14.8) H Platelet Count 247 K/UL (150-450) Mean Platelet Volume 7.0 FL (6.5-10.1) Neutrophils (%) (Auto) 68.2 % (45.0-75.0) Lymphocytes (%) (Auto) 16.3 % (20.0-45.0) L Monocytes (%) (Auto) 9.6 % (1.0-10.0) Eosinophils (%) (Auto) 5.0 % (0.0-3.0) H Basophils (%) (Auto) 0.8 % (0.0-2.0) Sodium Level 139 mEQ/L (135-145) Potassium Level 3.3 mEQ/L (3.4-4.9) L Chloride Level 102 mEQ/L (98-107) Carbon Dioxide Level 25 mEQ/L (20-30) Anion Gap 12 (5-15) Blood Urea Nitrogen 4 mg/dL (7-23) L Creatinine 0.4 mg/dL (0.7-1.2) L Estimat Glomerular Filtration Rate > 60 mL/min (>60) Glucose Level 85 mg/dL (74-106) Calcium Level 8.1 mg/dL (8.6-10.2) L Current Medications Medications (Trade) Dose Ordered Sig/Shraddha Route PRN Reason Start Time Stop Time Status Last Admin Dose Admin Acetaminophen (Tylenol) 650 mg Q4H PRN ORAL FEVER 12/12/16 19:30 01/11/17 19:29 12/23/16 16:30 Albuterol/ Ipratropium (DuoNeb 0.5-3(2.5)mg/3ml) 3 ml Q4H PRN HHN Shortness of Breath 12/29/16 05:45 01/03/17 05:44 12/29/16 07:57 Dextrose (Dextrose 50%) STAT PRN IV Hypoglycemia 12/12/16 19:30 01/11/17 19:29 Diphenhydramine HCl (Benadryl) 25 mg Q6H PRN IVP Itching 12/22/16 10:00 01/21/17 09:59 12/29/16 05:56 Hydrocortisone (Hydrocortisone) 1 applic Q6H PRN TOPIC Itching 12/23/16 10:30 01/22/17 10:29 12/27/16 04:15 Hydromorphone HCl (Dilaudid) 0.5 mg Q3H PRN IVP Pain Score 1-3 12/26/16 20:31 01/02/17 20:30 12/28/16 23:42 Hydromorphone HCl (Dilaudid) 1 mg Q3H PRN IVP pain score 4-6 12/26/16 20:31 01/02/17 20:30 Hydromorphone HCl (Dilaudid) 2 mg Q3H PRN IVP pain score 7-10 12/26/16 20:31 01/02/17 20:30 12/27/16 12:16 Insulin Aspart (NovoLOG) EVERY 6 HOURS SUBQ 12/24/16 12:00 01/23/17 11:59 12/25/16 01:05 Lansoprazole (Prevacid) 30 mg DAILY GT 12/28/16 09:00 01/27/17 08:59 12/28/16 08:16 Ondansetron HCl 4 mg 4 mg Q6H PRN IVP Nausea & Vomiting 12/26/16 14:30 01/25/17 14:29 Polyethylene Glycol (Miralax) 17 gm DAILYPRN PRN ORAL Constipation 12/12/16 19:30 01/11/17 19:29 Promethazine HCl/ Codeine 5 ml 5 ml Q4H PRN ORAL For Cough 12/13/16 10:30 01/12/17 10:29 12/25/16 06:22 Sodium Chloride (Sodium Chloride 1000ml bag) 1,000 ml @ 75 mls/hr [id number] IV 12/18/16 22:15 01/17/17 22:14 12/28/16 21:00 Sodium Chloride (Sodium Chloride 1000ml bag) 1,000 ml @ 999 mls/hr Q1H1M PRN IV For hypotension SBP<85 12/26/16 16:00 01/25/17 15:59 NAOMI GEORGE Dec 29, 2016 08:55
[2016-12-29] MEDS: Hydromorphone 0.5mg/0.5ml inj IVP PRN ×2 (09:12→15:17)
--- NOTE | 2016-12-29 09:43 | General Surgery Progress Note ---
General Surgery-Progress Note Subjective Day of Surgery: po day 4 Procedure Performed sp laparoscopic hemicolectomy Symptoms: pain absent Additional Comments tolerating gtube feeds at 20cc. Has had bm Objective Last 24 Hour Vital Signs Date Time Temp Pulse Resp B/P Pulse Ox O2 Delivery O2 Flow Rate FiO2 12/29/16 08:45 83 16 40 12/29/16 08:00 96 12/29/16 08:00 40 12/29/16 08:00 98.3 69 18 114/74 100 Mechanical Ventilator 40 12/29/16 07:58 68 17 100 Mechanical Ventilator 40 12/29/16 07:58 40 12/29/16 06:39 86 17 40 12/29/16 05:30 74 17 40 12/29/16 04:00 40 12/29/16 04:00 58 12/29/16 04:00 97.8 59 16 131/71 100 Mechanical Ventilator 80.0 40 12/29/16 04:00 40 12/29/16 02:45 60 16 40 12/29/16 00:37 65 16 40 12/29/16 00:12 97.7 12/29/16 00:00 97.7 88 18 103/71 100 Mechanical Ventilator 80.0 40 12/29/16 00:00 101 12/29/16 00:00 40 12/28/16 22:53 69 16 40 12/28/16 21:00 60 16 40 12/28/16 20:00 97.7 82 18 95/64 100 Mechanical Ventilator 80.0 40 12/28/16 20:00 40 12/28/16 20:00 79 12/28/16 18:58 90 18 40 12/28/16 17:10 87 16 40 12/28/16 16:00 98.2 72 16 109/63 100 Mechanical Ventilator 40 12/28/16 16:00 40 12/28/16 16:00 66 12/28/16 15:10 88 17 40 12/28/16 13:10 67 16 40 12/28/16 12:00 98.1 73 17 114/74 100 Mechanical Ventilator 40 12/28/16 12:00 40 12/28/16 12:00 61 12/28/16 10:58 90 17 40 I&O Intake and Output 12/28/16 12/29/16 19:00 07:00 Intake Total 1171 ml 1290 ml Output Total 350 ml 350 ml Balance 821 ml 940 ml Free Water 50 ml 150 ml IV Total 881 ml 900 ml Tube Feeding 240 ml 240 ml Output Urine Total 350 ml 350 ml Dressing: dry Wound: clean Drains: none Cardiovascular: RSR Abdomen: soft, non-tender Extremities: no edema, no tenderness, no cyanosis Laboratory Tests Test 12/29/16 05:38 White Blood Count 6.2 K/UL (4.8-10.8) # Red Blood Count 2.96 M/UL (4.70-6.10) L Hemoglobin 8.7 G/DL (14.2-18.0) L Hematocrit 28.0 % (42.0-52.0) L Mean Corpuscular Volume 94 FL (80-99) Mean Corpuscular Hemoglobin 29.5 PG (27.0-31.0) Mean Corpuscular Hemoglobin Concent 31.3 G/DL (32.0-36.0) L Red Cell Distribution Width 15.9 % (11.6-14.8) H Platelet Count 247 K/UL (150-450) Mean Platelet Volume 7.0 FL (6.5-10.1) Neutrophils (%) (Auto) 68.2 % (45.0-75.0) Lymphocytes (%) (Auto) 16.3 % (20.0-45.0) L Monocytes (%) (Auto) 9.6 % (1.0-10.0) Eosinophils (%) (Auto) 5.0 % (0.0-3.0) H Basophils (%) (Auto) 0.8 % (0.0-2.0) Sodium Level 139 mEQ/L (135-145) Potassium Level 3.3 mEQ/L (3.4-4.9) L Chloride Level 102 mEQ/L (98-107) Carbon Dioxide Level 25 mEQ/L (20-30) Anion Gap 12 (5-15) Blood Urea Nitrogen 4 mg/dL (7-23) L Creatinine 0.4 mg/dL (0.7-1.2) L Estimat Glomerular Filtration Rate > 60 mL/min (>60) Glucose Level 85 mg/dL (74-106) Calcium Level 8.1 mg/dL (8.6-10.2) L Plan Additional Comments stable post op course. will advance tube feeds. await final path SCHIBLER,ALEX Dec 29, 2016 09:43
[2016-12-29] MEDS ORDERED: KCl 10% 40mEq/30ml liquid NG ONE (11:45)
[2016-12-29 12:00] VITALS: BP 114/78
--- NOTE | 2016-12-29 14:44 | Internal Med Progress Note ---
Subjective Date of Service: Dec 29, 2016 Physician Name Tadeo Verdin Attending Physician Steve Rader MD Current Medications Medications (Trade) Dose Ordered Sig/Shraddha Route PRN Reason Start Time Stop Time Status Last Admin Dose Admin Acetaminophen (Tylenol) 650 mg Q4H PRN ORAL FEVER 12/12/16 19:30 01/11/17 19:29 12/23/16 16:30 Albuterol/ Ipratropium (DuoNeb 0.5-3(2.5)mg/3ml) 3 ml Q4H PRN HHN Shortness of Breath 12/29/16 05:45 01/03/17 05:44 12/29/16 07:57 Dextrose (Dextrose 50%) STAT PRN IV Hypoglycemia 12/12/16 19:30 01/11/17 19:29 Diphenhydramine HCl (Benadryl) 25 mg Q6H PRN IVP Itching 12/22/16 10:00 01/21/17 09:59 12/29/16 05:56 Hydrocortisone (Hydrocortisone) 1 applic Q6H PRN TOPIC Itching 12/23/16 10:30 01/22/17 10:29 12/27/16 04:15 Hydromorphone HCl (Dilaudid) 0.5 mg Q3H PRN IVP Pain Score 1-3 12/26/16 20:31 01/02/17 20:30 12/29/16 09:12 Hydromorphone HCl (Dilaudid) 1 mg Q3H PRN IVP pain score 4-6 12/26/16 20:31 01/02/17 20:30 Hydromorphone HCl (Dilaudid) 2 mg Q3H PRN IVP pain score 7-10 12/26/16 20:31 01/02/17 20:30 12/27/16 12:16 Insulin Aspart (NovoLOG) EVERY 6 HOURS SUBQ 12/24/16 12:00 01/23/17 11:59 12/25/16 01:05 Lansoprazole (Prevacid) 30 mg DAILY GT 12/28/16 09:00 01/27/17 08:59 12/29/16 09:12 Ondansetron HCl 4 mg 4 mg Q6H PRN IVP Nausea & Vomiting 12/26/16 14:30 01/25/17 14:29 Polyethylene Glycol (Miralax) 17 gm DAILYPRN PRN ORAL Constipation 12/12/16 19:30 01/11/17 19:29 Promethazine HCl/ Codeine 5 ml 5 ml Q4H PRN ORAL For Cough 12/13/16 10:30 01/12/17 10:29 12/25/16 06:22 Sodium Chloride (Sodium Chloride 1000ml bag) 1,000 ml @ 75 mls/hr [id number] IV 12/18/16 22:15 01/17/17 22:14 12/29/16 11:38 Sodium Chloride (Sodium Chloride 1000ml bag) 1,000 ml @ 999 mls/hr Q1H1M PRN IV For hypotension SBP<85 12/26/16 16:00 01/25/17 15:59 Allergies: Coded Allergies: No Known Allergies (Unverified , 06/17/16) ROS Limited/Unobtainable: No Constitutional: Reports: no symptoms HEENT: Reports: no symptoms Cardiovascular: Reports: no symptoms Respiratory: Reports: no symptoms Gastrointestinal/Abdominal: Reports: no symptoms Genitourinary: Reports: no symptoms Neurologic/Psychiatric: Reports: no symptoms Subjective 66 YO M admitted for shortness of breath and tachycardia. Intubated and sedated. JORDAN. Cover for Int Med-Dr Rader. S/P right hemicolectomy 12/26/16 Objective Last Vital Signs Date Time Temp Pulse Resp B/P Pulse Ox O2 Delivery O2 Flow Rate FiO2 12/29/16 13:06 83 16 40 12/29/16 12:00 98.3 114/78 100 Mechanical Ventilator 12/29/16 04:00 80.0 Laboratory Tests Test 12/29/16 05:38 White Blood Count 6.2 K/UL (4.8-10.8) # Red Blood Count 2.96 M/UL (4.70-6.10) L Hemoglobin 8.7 G/DL (14.2-18.0) L Hematocrit 28.0 % (42.0-52.0) L Mean Corpuscular Volume 94 FL (80-99) Mean Corpuscular Hemoglobin 29.5 PG (27.0-31.0) Mean Corpuscular Hemoglobin Concent 31.3 G/DL (32.0-36.0) L Red Cell Distribution Width 15.9 % (11.6-14.8) H Platelet Count 247 K/UL (150-450) Mean Platelet Volume 7.0 FL (6.5-10.1) Neutrophils (%) (Auto) 68.2 % (45.0-75.0) Lymphocytes (%) (Auto) 16.3 % (20.0-45.0) L Monocytes (%) (Auto) 9.6 % (1.0-10.0) Eosinophils (%) (Auto) 5.0 % (0.0-3.0) H Basophils (%) (Auto) 0.8 % (0.0-2.0) Sodium Level 139 mEQ/L (135-145) Potassium Level 3.3 mEQ/L (3.4-4.9) L Chloride Level 102 mEQ/L (98-107) Carbon Dioxide Level 25 mEQ/L (20-30) Anion Gap 12 (5-15) Blood Urea Nitrogen 4 mg/dL (7-23) L Creatinine 0.4 mg/dL (0.7-1.2) L Estimat Glomerular Filtration Rate > 60 mL/min (>60) Glucose Level 85 mg/dL (74-106) Calcium Level 8.1 mg/dL (8.6-10.2) L Intake and Output 12/28/16 12/29/16 19:00 07:00 Intake Total 1171 ml 1290 ml Output Total 350 ml 350 ml Balance 821 ml 940 ml Free Water 50 ml 150 ml IV Total 881 ml 900 ml Tube Feeding 240 ml 240 ml Output Urine Total 350 ml 350 ml Objective General Appearance: lethargic, thin EENT: PERRL/EOMI, normal ENT inspection Neck: Trach; non-tender, normal alignment, supple Cardiovascular: normal peripheral pulses, regular rhythm, no gallop/murmur, no JVD, tachycardia Respiratory/Chest: Mech vent; chest wall non-tender, crackles/rales, rhonchi - bilaterally, expiratory wheezing Abdomen: normal bowel sounds, non tender, soft, no organomegaly, no mass Neurologic: juice weigher II-XII grossly normal, no motor/sensory deficits Skin: normal pigmentation, warm/dry Assessment/Plan Problem List: (1) UTI (urinary tract infection) Assessment & Plan: See ID note. Resolved with antibiotics. (2) Tachycardia (3) SOB (shortness of breath) Assessment & Plan: Due to pneurmonia. (4) Hypertension (5) Acute and chronic respiratory failure Assessment & Plan: Currently on Mech vent. See pulmonary note. (6) Emphysema lung (7) Lung abscess (8) Mass of colon (9) Pneumonia Assessment & Plan: see pulmonary and ID note. (10) Mass of cecum Assessment & Plan: See surgery note. S/P Right hemicolectomy 12/26/16 (11) Anemia Assessment & Plan: Type & cross for possible transfusion Status: progressing TADEO VERDIN Dec 29, 2016 14:44
--- NOTE | 2016-12-29 15:01 | Cardiac Electrophysiology PN ---
Assessment/Plan Status Narrative Technically difficult study due to poor acoustic windows. Normal left ventricular chamber size, systolic function and wall motion. Left ventricular ejection fraction estimated to be 55-60 %. No evidence of left ventricular hypertrophy. No evidence of pericardial fat or effusion. Mild bi-atrial enlargement by 2D. Focal aortic valve sclerosis with adequate cusp excursion Thickened mitral valve leaflets with normal excursion. Mitral annulus and aortic root calcification. Pulmonic valve is well visualized. Normal tricuspid valve structure. IVC is normal in size with minimal physiologic collapse. RA pressure of 10mmHg. Assessment/Plan 1. Sinus tachycardia due to sepsis and respiratory failure. Hr 90s 2. Hypotension, Resolved. 3. Severe chronic obstructive pulmonary disease and pulmonary hypertension.On Vent. 4. Pneumonia, on IV antibiotics. WBC decreased from 20K to 6.2 K today. 5. Ventilator-dependent respiratory failure, status post tracheostomy on vent 6. Status post percutaneous endoscopic gastrostomy placement. 7. 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 S/P Laparoscopic right [place]- colectomy 12/26/[address] Julio. 8. Pleural effusion, status post thoracentesis on 11/21/2016 and 12/14/16 KATHY RN Subjective Subjective Alert in JORDAN on vent via trach.No chest pain or SOB. PEG Feeding was increased by Dr. Julio. Objective Last 24 Hour Vital Signs Date Time Temp Pulse Resp B/P Pulse Ox O2 Delivery O2 Flow Rate FiO2 12/29/16 13:06 83 16 40 12/29/16 12:00 77 12/29/16 12:00 98.3 81 17 114/78 100 Mechanical Ventilator 40 12/29/16 12:00 40 12/29/16 10:55 76 16 40 12/29/16 08:45 83 16 40 12/29/16 08:00 96 12/29/16 08:00 40 12/29/16 08:00 98.3 69 18 114/74 100 Mechanical Ventilator 40 12/29/16 07:58 68 17 100 Mechanical Ventilator 40 12/29/16 07:58 40 12/29/16 06:39 86 17 40 12/29/16 05:30 74 17 40 12/29/16 04:00 40 12/29/16 04:00 58 12/29/16 04:00 97.8 59 16 131/71 100 Mechanical Ventilator 80.0 40 12/29/16 04:00 40 12/29/16 02:45 60 16 40 12/29/16 00:37 65 16 40 12/29/16 00:12 97.7 12/29/16 00:00 97.7 88 18 103/71 100 Mechanical Ventilator 80.0 40 12/29/16 00:00 101 12/29/16 00:00 40 12/28/16 22:53 69 16 40 12/28/16 21:00 60 16 40 12/28/16 20:00 97.7 82 18 95/64 100 Mechanical Ventilator 80.0 40 12/28/16 20:00 40 12/28/16 20:00 79 12/28/16 18:58 90 18 40 12/28/16 17:10 87 16 40 12/28/16 16:00 98.2 72 16 109/63 100 Mechanical Ventilator 40 12/28/16 16:00 40 12/28/16 16:00 66 12/28/16 15:10 88 17 40 Intake and Output 12/28/16 12/29/16 19:00 07:00 Intake Total 1171 ml 1290 ml Output Total 350 ml 350 ml Balance 821 ml 940 ml Free Water 50 ml 150 ml IV Total 881 ml 900 ml Tube Feeding 240 ml 240 ml Output Urine Total 350 ml 350 ml Laboratory Tests Test 12/29/16 05:38 White Blood Count 6.2 K/UL (4.8-10.8) # Red Blood Count 2.96 M/UL (4.70-6.10) L Hemoglobin 8.7 G/DL (14.2-18.0) L Hematocrit 28.0 % (42.0-52.0) L Mean Corpuscular Volume 94 FL (80-99) Mean Corpuscular Hemoglobin 29.5 PG (27.0-31.0) Mean Corpuscular Hemoglobin Concent 31.3 G/DL (32.0-36.0) L Red Cell Distribution Width 15.9 % (11.6-14.8) H Platelet Count 247 K/UL (150-450) Mean Platelet Volume 7.0 FL (6.5-10.1) Neutrophils (%) (Auto) 68.2 % (45.0-75.0) Lymphocytes (%) (Auto) 16.3 % (20.0-45.0) L Monocytes (%) (Auto) 9.6 % (1.0-10.0) Eosinophils (%) (Auto) 5.0 % (0.0-3.0) H Basophils (%) (Auto) 0.8 % (0.0-2.0) Sodium Level 139 mEQ/L (135-145) Potassium Level 3.3 mEQ/L (3.4-4.9) L Chloride Level 102 mEQ/L (98-107) Carbon Dioxide Level 25 mEQ/L (20-30) Anion Gap 12 (5-15) Blood Urea Nitrogen 4 mg/dL (7-23) L Creatinine 0.4 mg/dL (0.7-1.2) L Estimat Glomerular Filtration Rate > 60 mL/min (>60) Glucose Level 85 mg/dL (74-106) Calcium Level 8.1 mg/dL (8.6-10.2) L Objective HEAD AND NECK: No JVD.Tracheostomy intact. LUNGS: B Coarse rhonchi. CARDIOVASCULAR: Tachycardic S1, S2 with no gallop or murmur. ABDOMEN: Soft. Gtube intact. 3 Laparoscopy incisions no bleeding EXTREMITIES: One plus edema. OSWALD HILLS Dec 29, 2016 15:01
[2016-12-29 15:44] LABS: BASOPHILS % (AUTO) 1.1 % (0.0-2.0); EOSINOPHILS % (AUTO) 5.3 % (0.0-3.0); MEAN CORPUSCULAR HEMOGLOBIN 30.6 PG (27.0-31.0); MEAN CORPUSCULAR HGB CONC 33.6 G/DL (32.0-36.0); MEAN CORPUSCULAR VOLUME 91 FL (80-99); MEAN PLATELET VOLUME 6.8 FL (6.5-10.1); MONOCYTES % (AUTO) 7.4 % (1.0-10.0); NEUTROPHILS % (AUTO) 73.3 % (45.0-75.0); PLATELET COUNT 232 K/UL (150-450); RED BLOOD COUNT 2.88 M/UL (4.70-6.10); RED CELL DISTRIBUTION WIDTH 16.2 % (11.6-14.8)
[2016-12-29 15:53] LABS: ANION GAP 10 (5-15); CARBON DIOXIDE 27 mEQ/L (20-30); CHLORIDE 104 mEQ/L (98-107); CREATININE 0.5 mg/dL (0.7-1.2); GLOMERULAR FILTRATION RATE > 60 mL/min (>60); HEMOLYSIS 3; POTASSIUM 3.7 mEQ/L (3.4-4.9); SODIUM 141 mEQ/L (135-145)
[2016-12-29 16:00] VITALS: BP 121/82
--- NOTE | 2016-12-29 16:34 | Pulmonology Progress Note ---
Assessment/Plan Problems: (1) Acute and chronic respiratory failure (2) Feeding by G-tube (3) Emphysema lung (4) Pleural effusion on right Respiratory: monitor respiratory rate, adjust FIO2 Cardiac: continue to monitor HR/BP Renal: F/U I&O, keep IV fluid Infectious Disease: check cultures Gastrointestinal: continue feedings/current rate Endocrine: check HgA1C Hematologic: monitor H/H Neurologic: PRN Morphine Prophylaxis: Protonix, Heparin Subjective ROS Limited/Unobtainable: No Constitutional: Reports: no symptoms HEENT: Repors: no symptoms Respiratory: Reports: no symptoms Allergies: Coded Allergies: No Known Allergies (Unverified , 06/17/16) Objective Last 24 Hour Vital Signs Date Time Temp Pulse Resp B/P Pulse Ox O2 Delivery O2 Flow Rate FiO2 12/29/16 15:13 94 18 40 12/29/16 13:06 83 16 40 12/29/16 12:00 77 12/29/16 12:00 98.3 81 17 114/78 100 Mechanical Ventilator 40 12/29/16 12:00 40 12/29/16 10:55 76 16 40 12/29/16 08:45 83 16 40 12/29/16 08:00 96 12/29/16 08:00 40 12/29/16 08:00 98.3 69 18 114/74 100 Mechanical Ventilator 40 12/29/16 07:58 68 17 100 Mechanical Ventilator 40 12/29/16 07:58 40 12/29/16 06:39 86 17 40 12/29/16 05:30 74 17 40 12/29/16 04:00 40 12/29/16 04:00 58 12/29/16 04:00 97.8 59 16 131/71 100 Mechanical Ventilator 80.0 40 12/29/16 04:00 40 12/29/16 02:45 60 16 40 12/29/16 00:37 65 16 40 12/29/16 00:12 97.7 12/29/16 00:00 97.7 88 18 103/71 100 Mechanical Ventilator 80.0 40 12/29/16 00:00 101 12/29/16 00:00 40 12/28/16 22:53 69 16 40 12/28/16 21:00 60 16 40 12/28/16 20:00 97.7 82 18 95/64 100 Mechanical Ventilator 80.0 40 12/28/16 20:00 40 12/28/16 20:00 79 12/28/16 18:58 90 18 40 12/28/16 17:10 87 16 40 Intake and Output 12/28/16 12/29/16 19:00 07:00 Intake Total 1171 ml 1290 ml Output Total 350 ml 350 ml Balance 821 ml 940 ml Free Water 50 ml 150 ml IV Total 881 ml 900 ml Tube Feeding 240 ml 240 ml Output Urine Total 350 ml 350 ml Objective General Appearance: cachetic Lines, tubes and drains: peripheral HEENT: normocephalic, atraumatic Neck: non-tender, normal alignment Respiratory/Chest: chest wall non-tender, lungs clear Breasts: no masses Cardiovascular/Chest: normal peripheral pulses Abdomen: normal bowel sounds, non tender Genitourinary/Rectal: normal genital exam Extremities: normal range of motion Laboratory Tests 12/29/16 05:38: White Blood Count 6.2#, Red Blood Count 2.96L, Hemoglobin 8.7L, Hematocrit 28.0L , Mean Corpuscular Volume 94, Mean Corpuscular Hemoglobin 29.5, Mean Corpuscular Hemoglobin Concent 31.3L, Red Cell Distribution Width 15.9H, Platelet Count 247, Mean Platelet Volume 7.0, Neutrophils (%) (Auto) 68.2, Lymphocytes (%) (Auto) 16.3L, Monocytes (%) (Auto) 9.6, Eosinophils (%) (Auto) 5.0H, Basophils (%) (Auto) 0.8, Sodium Level 139, Potassium Level 3.3L, Chloride Level 102, Carbon Dioxide Level 25, Anion Gap 12, Blood Urea Nitrogen 4L, Creatinine 0.4L, Estimat Glomerular Filtration Rate > 60, Glucose Level 85, Calcium Level 8.1L 12/29/16 15:15: White Blood Count 9.0, Red Blood Count 2.88L, Hemoglobin 8.8L, Hematocrit 26.3L , Mean Corpuscular Volume 91, Mean Corpuscular Hemoglobin 30.6, Mean Corpuscular Hemoglobin Concent 33.6, Red Cell Distribution Width 16.2H, Platelet Count 232, Mean Platelet Volume 6.8, Neutrophils (%) (Auto) 73.3, Lymphocytes (%) (Auto) 13.0L, Monocytes (%) (Auto) 7.4, Eosinophils (%) (Auto) 5.3H, Basophils (%) (Auto) 1.1, Sodium Level 141, Potassium Level 3.7, Chloride Level 104, Carbon Dioxide Level 27, Anion Gap 10, Blood Urea Nitrogen 3L, Creatinine 0.5L, Estimat Glomerular Filtration Rate > 60, Glucose Level 94, Calcium Level 8.0L Current Medications Medications (Trade) Dose Ordered Sig/Shraddha Route PRN Reason Start Time Stop Time Status Last Admin Dose Admin Acetaminophen (Tylenol) 650 mg Q4H PRN ORAL FEVER 12/12/16 19:30 01/11/17 19:29 12/23/16 16:30 Albuterol/ Ipratropium (DuoNeb 0.5-3(2.5)mg/3ml) 3 ml Q4H PRN HHN Shortness of Breath 12/29/16 05:45 01/03/17 05:44 12/29/16 15:13 Dextrose (Dextrose 50%) STAT PRN IV Hypoglycemia 12/12/16 19:30 01/11/17 19:29 Diphenhydramine HCl (Benadryl) 25 mg Q6H PRN IVP Itching 12/22/16 10:00 01/21/17 09:59 12/29/16 05:56 Hydrocortisone (Hydrocortisone) 1 applic Q6H PRN TOPIC Itching 12/23/16 10:30 01/22/17 10:29 12/27/16 04:15 Hydromorphone HCl (Dilaudid) 0.5 mg Q3H PRN IVP Pain Score 1-3 12/26/16 20:31 01/02/17 20:30 12/29/16 15:17 Hydromorphone HCl (Dilaudid) 1 mg Q3H PRN IVP pain score 4-6 12/26/16 20:31 01/02/17 20:30 Hydromorphone HCl (Dilaudid) 2 mg Q3H PRN IVP pain score 7-10 12/26/16 20:31 01/02/17 20:30 12/27/16 12:16 Insulin Aspart (NovoLOG) EVERY 6 HOURS SUBQ 12/24/16 12:00 01/23/17 11:59 12/25/16 01:05 Lansoprazole (Prevacid) 30 mg DAILY GT 12/28/16 09:00 01/27/17 08:59 12/29/16 09:12 Ondansetron HCl 4 mg 4 mg Q6H PRN IVP Nausea & Vomiting 12/26/16 14:30 01/25/17 14:29 Polyethylene Glycol (Miralax) 17 gm DAILYPRN PRN ORAL Constipation 12/12/16 19:30 01/11/17 19:29 Promethazine HCl/ Codeine 5 ml 5 ml Q4H PRN ORAL For Cough 12/13/16 10:30 01/12/17 10:29 12/25/16 06:22 Sodium Chloride (Sodium Chloride 1000ml bag) 1,000 ml @ 75 mls/hr [id number] IV 12/18/16 22:15 01/17/17 22:14 12/29/16 11:38 Sodium Chloride (Sodium Chloride 1000ml bag) 1,000 ml @ 999 mls/hr Q1H1M PRN IV For hypotension SBP<85 12/26/16 16:00 01/25/17 15:59 REN WRIGHT Dec 29, 2016 16:34
[2016-12-29 20:00] VITALS: BP 113/74
[2016-12-30] VITALS: BP 117/76
[2016-12-30] MEDS: Promethazine/Codeine 5ml UD ORAL PRN (00:32)
[2016-12-30 04:00] VITALS: BP 108/66
[2016-12-30] MEDS: NovoLOG Insulin Flexpen SUBQ SCH ×4 (06:00→17:39)
[2016-12-30 06:13] LABS: BASOPHILS % (AUTO) 0.9 % (0.0-2.0); EOSINOPHILS % (AUTO) 5.3 % (0.0-3.0); LYMPHOCYTES % (AUTO) 19.5 % (20.0-45.0); MEAN CORPUSCULAR HEMOGLOBIN 30.5 PG (27.0-31.0); MEAN CORPUSCULAR HGB CONC 32.1 G/DL (32.0-36.0); MEAN CORPUSCULAR VOLUME 95 FL (80-99); MEAN PLATELET VOLUME 6.5 FL (6.5-10.1); MONOCYTES % (AUTO) 8.5 % (1.0-10.0); NEUTROPHILS % (AUTO) 65.8 % (45.0-75.0); PLATELET COUNT 238 K/UL (150-450); RED BLOOD COUNT 2.72 M/UL (4.70-6.10); RED CELL DISTRIBUTION WIDTH 15.5 % (11.6-14.8); WHITE BLOOD COUNT 6.7 K/UL (4.8-10.8)
[2016-12-30 06:21] LABS: ALANINE AMINOTRANSFERASE 7 U/L (3-41); ALBUMIN/GLOBULIN RATIO 0.3 (1.0-2.7); ANION GAP 13 (5-15); ASPARTATE AMINO TRANSFERASE 11 U/L (5-40); CALCIUM 8.1 mg/dL (8.6-10.2); CARBON DIOXIDE 26 mEQ/L (20-30); CHLORIDE 104 mEQ/L (98-107); CREATININE 0.4 mg/dL (0.7-1.2); GLOMERULAR FILTRATION RATE > 60 mL/min (>60); HEMOLYSIS 7; MAGNESIUM 1.7 mg/dL (1.7-2.5); POTASSIUM 3.8 mEQ/L (3.4-4.9); SODIUM 143 mEQ/L (135-145); TOTAL PROTEIN 5.9 g/dL (6.6-8.7)
[2016-12-30 08:00] VITALS: BP 125/87
[2016-12-30] MEDS: HYDROmorphone 1mg/ml Carpuject IVP PRN ×2 (11:01→19:47)
--- NOTE | 2016-12-30 11:26 | GI Progress Note ---
Assessment/Plan Problems: (1) Mass of cecum ICD Codes: K63.9 - Disease of intestine, unspecified SNOMED: 019060572 (2) Severe anemia ICD Codes: D64.9 - Anemia, unspecified SNOMED: 485454848 (3) Colonic mass ICD Codes: K63.9 - Disease of intestine, unspecified SNOMED: 992964370 (4) Gastric mass ICD Codes: K31.9 - Disease of stomach and duodenum, unspecified SNOMED: 089758397 (5) LFTs abnormal ICD Codes: R79.89 - Other specified abnormal findings of blood chemistry SNOMED: 050882331 (6) DVT (deep venous thrombosis) ICD Codes: I82.409 - Acute embolism and thrombosis of unspecified deep veins of unspecified lower extremity SNOMED: 919218220 (7) ENMA (iron deficiency anemia) ICD Codes: D50.9 - Iron deficiency anemia, unspecified SNOMED: 89187862 (8) Dysphagia ICD Codes: R13.10 - Dysphagia, unspecified SNOMED: 55183760, 846113469 (9) Anemia ICD Codes: D64.9 - Anemia, unspecified SNOMED: 534796699 Status: stable Status Narrative Discussed with Dr. Quiroz. Assessment/Plan S/P COLONOSCOPY SUMMARY OF FINDINGS: 1. Cecal mass status post biopsy, see above for details. 2. 12 colonic polyps S/P laparoscopic rt colectomy, POD #3 follow surgical recs monitor H&H, transfuse prn ppi hydrocortisone prn fu path repeat colonoscopy in 6 months fu labs Subjective Subjective limited, nonverbal Objective Last 24 Hour Vital Signs Date Time Temp Pulse Resp B/P Pulse Ox O2 Delivery O2 Flow Rate FiO2 12/30/16 10:59 68 18 40 12/30/16 08:45 78 18 40 12/30/16 08:00 97.3 82 23 125/87 100 Mechanical Ventilator 40 12/30/16 08:00 40 12/30/16 06:44 72 16 40 12/30/16 05:25 59 16 40 12/30/16 04:00 97.7 65 17 108/66 100 Mechanical Ventilator 12/30/16 04:00 60 12/30/16 04:00 40 12/30/16 03:22 68 16 40 12/30/16 01:32 65 16 40 12/30/16 00:00 62 12/30/16 00:00 97.7 64 17 117/76 100 Mechanical Ventilator 12/30/16 00:00 40 12/29/16 23:18 89 17 100 Mechanical Ventilator 40 12/29/16 23:08 70 16 100 Mechanical Ventilator 40 12/29/16 23:08 40 12/29/16 23:07 70 16 40 12/29/16 20:40 96 19 40 12/29/16 20:00 96.3 78 16 113/74 100 Mechanical Ventilator 12/29/16 20:00 40 12/29/16 20:00 93 12/29/16 19:39 95 19 40 12/29/16 17:01 86 17 40 12/29/16 16:00 40 12/29/16 16:00 99.2 94 16 121/82 100 Mechanical Ventilator 40 12/29/16 16:00 90 12/29/16 15:13 94 18 40 12/29/16 13:06 83 16 40 12/29/16 12:00 77 12/29/16 12:00 98.3 81 17 114/78 100 Mechanical Ventilator 40 12/29/16 12:00 40 Intake and Output 12/29/16 12/30/16 19:00 07:00 Intake Total 1352.5 ml 1480 ml Output Total 450 ml 1150 ml Balance 902.5 ml 330 ml Free Water 50 ml 100 ml IV Total 862.5 ml 900 ml Tube Feeding 440 ml 480 ml Output Urine Total 450 ml 1150 ml Laboratory Tests Test 12/29/16 15:15 12/30/16 03:55 White Blood Count 9.0 K/UL (4.8-10.8) 6.7 K/UL (4.8-10.8) Red Blood Count 2.88 M/UL (4.70-6.10) L 2.72 M/UL (4.70-6.10) L Hemoglobin 8.8 G/DL (14.2-18.0) L 8.3 G/DL (14.2-18.0) L Hematocrit 26.3 % (42.0-52.0) L 25.9 % (42.0-52.0) L Mean Corpuscular Volume 91 FL (80-99) 95 FL (80-99) Mean Corpuscular Hemoglobin 30.6 PG (27.0-31.0) 30.5 PG (27.0-31.0) Mean Corpuscular Hemoglobin Concent 33.6 G/DL (32.0-36.0) 32.1 G/DL (32.0-36.0) Red Cell Distribution Width 16.2 % (11.6-14.8) H 15.5 % (11.6-14.8) H Platelet Count 232 K/UL (150-450) 238 K/UL (150-450) Mean Platelet Volume 6.8 FL (6.5-10.1) 6.5 FL (6.5-10.1) Neutrophils (%) (Auto) 73.3 % (45.0-75.0) 65.8 % (45.0-75.0) Lymphocytes (%) (Auto) 13.0 % (20.0-45.0) L 19.5 % (20.0-45.0) L Monocytes (%) (Auto) 7.4 % (1.0-10.0) 8.5 % (1.0-10.0) Eosinophils (%) (Auto) 5.3 % (0.0-3.0) H 5.3 % (0.0-3.0) H Basophils (%) (Auto) 1.1 % (0.0-2.0) 0.9 % (0.0-2.0) Sodium Level 141 mEQ/L (135-145) 143 mEQ/L (135-145) Potassium Level 3.7 mEQ/L (3.4-4.9) 3.8 mEQ/L (3.4-4.9) Chloride Level 104 mEQ/L (98-107) 104 mEQ/L (98-107) Carbon Dioxide Level 27 mEQ/L (20-30) 26 mEQ/L (20-30) Anion Gap 10 (5-15) 13 (5-15) Blood Urea Nitrogen 3 mg/dL (7-23) L 3 mg/dL (7-23) L Creatinine 0.5 mg/dL (0.7-1.2) L 0.4 mg/dL (0.7-1.2) L Estimat Glomerular Filtration Rate > 60 mL/min (>60) > 60 mL/min (>60) Glucose Level 94 mg/dL (74-106) 79 mg/dL (74-106) Calcium Level 8.0 mg/dL (8.6-10.2) L 8.1 mg/dL (8.6-10.2) L Phosphorus Level 2.0 mg/dL (2.5-4.8) L Magnesium Level 1.7 mg/dL (1.7-2.5) Total Bilirubin < 0.2 mg/dL (0.0-1.2) Aspartate Amino Transf (AST/SGOT) 11 U/L (5-40) Alanine Aminotransferase (ALT/SGPT) 7 U/L (3-41) Alkaline Phosphatase 90 U/L (40-129) Total Protein 5.9 g/dL (6.6-8.7) L Albumin 1.6 g/dL (3.5-5.2) L Globulin 4.3 g/dL Albumin/Globulin Ratio 0.3 (1.0-2.7) L Height (Feet): 5 Height (Inches): 9.00 Weight (Pounds): 150 General Appearance: no apparent distress, alert Cardiovascular: normal rate Respiratory/Chest: normal breath sounds, no respiratory distress, other - mech vent Abdominal Exam: GT site - c/d/i Angeles Galloway N.P. Dec 30, 2016 11:26
[2016-12-30 12:00] VITALS: BP 125/83
--- NOTE | 2016-12-30 12:00 | General Progress Note ---
Progress Note Progress Note Surgery: patient seen and examined at bedside. doing well. no acute events. comfortable. pain minimal. no /v/f/c. tolerating tube feeds. wants to eat. + BM's Afebrile, HD stable, labs improving Abdomen soft, non tender, non distended, BS+, wounds c/d/i. g tube functional path not available yet advance feeds to goal speech for swallow Landon Llanes Dec 30, 2016 12:00
[2016-12-30] MEDS: DuoNeb 0.5-3(2.5)mg/3ml neb HHN PRN ×2 (12:35→16:44)
[2016-12-30] MEDS ORDERED: Sodium Phosphate 30 MM in NS 275 ML IVPB ONE (13:00)
[2016-12-30 16:00] VITALS: BP 127/73
[2016-12-30] MEDS ORDERED: Tubing Blood Filter IV ONE (17:58)
[2016-12-30] MEDS ORDERED: NS 275ml ONE (17:58)
--- NOTE | 2016-12-30 18:26 | Internal Med Progress Note ---
Subjective Date of Service: Dec 30, 2016 Physician Name VerdinTadeo dockery Attending Physician Steve Rader MD Current Medications Medications (Trade) Dose Ordered Sig/Shraddha Route PRN Reason Start Time Stop Time Status Last Admin Dose Admin Acetaminophen (Tylenol) 650 mg Q4H PRN ORAL FEVER 12/12/16 19:30 01/11/17 19:29 12/23/16 16:30 Albuterol/ Ipratropium 3 ml 3 ml Q4H PRN HHN Shortness of Breath 12/29/16 05:45 01/03/17 05:44 12/30/16 16:44 Dextrose (Dextrose 50%) STAT PRN IV Hypoglycemia 12/12/16 19:30 01/11/17 19:29 Diphenhydramine HCl (Benadryl) 25 mg Q6H PRN IVP Itching 12/22/16 10:00 01/21/17 09:59 12/29/16 05:56 Hydrocortisone (Hydrocortisone) 1 applic Q6H PRN TOPIC Itching 12/23/16 10:30 01/22/17 10:29 12/27/16 04:15 Hydromorphone HCl (Dilaudid) 0.5 mg Q3H PRN IVP Pain Score 1-3 12/26/16 20:31 01/02/17 20:30 12/29/16 15:17 Hydromorphone HCl (Dilaudid) 1 mg Q3H PRN IVP pain score 4-6 12/26/16 20:31 01/02/17 20:30 12/30/16 11:01 Hydromorphone HCl (Dilaudid) 2 mg Q3H PRN IVP pain score 7-10 12/26/16 20:31 01/02/17 20:30 12/29/16 21:28 Insulin Aspart (NovoLOG) EVERY 6 HOURS SUBQ 12/24/16 12:00 01/23/17 11:59 12/25/16 01:05 Lansoprazole (Prevacid) 30 mg DAILY GT 12/28/16 09:00 01/27/17 08:59 12/30/16 08:14 Ondansetron HCl 4 mg 4 mg Q6H PRN IVP Nausea & Vomiting 12/26/16 14:30 01/25/17 14:29 Polyethylene Glycol (Miralax) 17 gm DAILYPRN PRN ORAL Constipation 12/12/16 19:30 01/11/17 19:29 Promethazine HCl/ Codeine 5 ml 5 ml Q4H PRN ORAL For Cough 12/13/16 10:30 01/12/17 10:29 12/30/16 00:32 Sodium Chloride (Sodium Chloride 1000ml bag) 1,000 ml @ 75 mls/hr [id number] IV 12/18/16 22:15 01/17/17 22:14 12/30/16 14:57 Sodium Chloride (Sodium Chloride 1000ml bag) 1,000 ml @ 999 mls/hr Q1H1M PRN IV For hypotension SBP<85 12/26/16 16:00 01/25/17 15:59 Sodium Phosphate/ Sodium Chloride (NaPO4/Sodium Chloride) 285 ml @ 47.5 mls/hr ONCE ONCE IVPB 12/30/16 13:00 12/30/16 18:59 12/30/16 14:57 Allergies: Coded Allergies: No Known Allergies (Unverified , 06/17/16) ROS Limited/Unobtainable: No Constitutional: Reports: no symptoms HEENT: Reports: no symptoms Cardiovascular: Reports: no symptoms Respiratory: Reports: no symptoms Gastrointestinal/Abdominal: Reports: no symptoms Genitourinary: Reports: no symptoms Neurologic/Psychiatric: Reports: no symptoms Subjective 66 YO M admitted for shortness of breath and tachycardia. Intubated. [facility]. Cover for Stanislav Hdz-Dr Rader. S/P right hemicolectomy 12/26/16 Objective Last Vital Signs Date Time Temp Pulse Resp B/P Pulse Ox O2 Delivery O2 Flow Rate FiO2 12/30/16 16:53 76 18 100 Mechanical Ventilator 40 12/30/16 16:00 97.9 127/73 12/29/16 04:00 80.0 Laboratory Tests Test 12/30/16 03:55 White Blood Count 6.7 K/UL (4.8-10.8) Red Blood Count 2.72 M/UL (4.70-6.10) L Hemoglobin 8.3 G/DL (14.2-18.0) L Hematocrit 25.9 % (42.0-52.0) L Mean Corpuscular Volume 95 FL (80-99) Mean Corpuscular Hemoglobin 30.5 PG (27.0-31.0) Mean Corpuscular Hemoglobin Concent 32.1 G/DL (32.0-36.0) Red Cell Distribution Width 15.5 % (11.6-14.8) H Platelet Count 238 K/UL (150-450) Mean Platelet Volume 6.5 FL (6.5-10.1) Neutrophils (%) (Auto) 65.8 % (45.0-75.0) Lymphocytes (%) (Auto) 19.5 % (20.0-45.0) L Monocytes (%) (Auto) 8.5 % (1.0-10.0) Eosinophils (%) (Auto) 5.3 % (0.0-3.0) H Basophils (%) (Auto) 0.9 % (0.0-2.0) Sodium Level 143 mEQ/L (135-145) Potassium Level 3.8 mEQ/L (3.4-4.9) Chloride Level 104 mEQ/L (98-107) Carbon Dioxide Level 26 mEQ/L (20-30) Anion Gap 13 (5-15) Blood Urea Nitrogen 3 mg/dL (7-23) L Creatinine 0.4 mg/dL (0.7-1.2) L Estimat Glomerular Filtration Rate > 60 mL/min (>60) Glucose Level 79 mg/dL (74-106) Calcium Level 8.1 mg/dL (8.6-10.2) L Phosphorus Level 2.0 mg/dL (2.5-4.8) L Magnesium Level 1.7 mg/dL (1.7-2.5) Total Bilirubin < 0.2 mg/dL (0.0-1.2) Aspartate Amino Transf (AST/SGOT) 11 U/L (5-40) Alanine Aminotransferase (ALT/SGPT) 7 U/L (3-41) Alkaline Phosphatase 90 U/L (40-129) Total Protein 5.9 g/dL (6.6-8.7) L Albumin 1.6 g/dL (3.5-5.2) L Globulin 4.3 g/dL Albumin/Globulin Ratio 0.3 (1.0-2.7) L Intake and Output 12/29/16 12/30/16 19:00 07:00 Intake Total 1352.5 ml 1480 ml Output Total 450 ml 1150 ml Balance 902.5 ml 330 ml Free Water 50 ml 100 ml IV Total 862.5 ml 900 ml Tube Feeding 440 ml 480 ml Output Urine Total 450 ml 1150 ml Objective General Appearance: lethargic, thin EENT: PERRL/EOMI, normal ENT inspection Neck: Trach; non-tender, normal alignment, supple Cardiovascular: normal peripheral pulses, regular rhythm, no gallop/murmur, no JVD, tachycardia Respiratory/Chest: Mech vent; chest wall non-tender, crackles/rales, rhonchi - bilaterally, expiratory wheezing Abdomen: normal bowel sounds, non tender, soft, no organomegaly, no mass Neurologic: time study statistician II-XII grossly normal, no motor/sensory deficits Skin: normal pigmentation, warm/dry Assessment/Plan Problem List: (1) UTI (urinary tract infection) Assessment & Plan: See ID note. Resolved with antibiotics. (2) Tachycardia (3) SOB (shortness of breath) Assessment & Plan: Due to pneurmonia. (4) Hypertension (5) Acute and chronic respiratory failure Assessment & Plan: Currently on Mech vent. See pulmonary note. (6) Emphysema lung (7) Lung abscess (8) Mass of colon (9) Pneumonia Assessment & Plan: see pulmonary and ID note. (10) Mass of cecum Assessment & Plan: See surgery note. 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 Await onc consult. ?chemotherapy? TADEO VERDIN Dec 30, 2016 18:26
--- NOTE | 2016-12-30 18:52 | Cardiac Electrophysiology PN ---
Assessment/Plan Status Narrative Technically difficult study due to poor acoustic windows. Normal left ventricular chamber size, systolic function and wall motion. Left ventricular ejection fraction estimated to be 55-60 %. No evidence of left ventricular hypertrophy. No evidence of pericardial fat or effusion. Mild bi-atrial enlargement by 2D. Focal aortic valve sclerosis with adequate cusp excursion Thickened mitral valve leaflets with normal excursion. Mitral annulus and aortic root calcification. Pulmonic valve is well visualized. Normal tricuspid valve structure. IVC is normal in size with minimal physiologic collapse. RA pressure of 10mmHg. Assessment/Plan 1. Sinus tachycardia due to sepsis and respiratory failure. Resolved. 2. Hypotension, Resolved. 3. Severe chronic obstructive pulmonary disease and pulmonary hypertension.On Vent. 4. Pneumonia, on IV antibiotics. WBC decreased from 20K to 6.2 K 5. Ventilator-dependent respiratory failure, status post tracheostomy on vent 6. Status post percutaneous endoscopic gastrostomy placement. 7. 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 S/P Laparoscopic right [place]- colectomy 12/26/[address] Julio. 8. Pleural effusion, status post thoracentesis on 11/21/2016 and 12/14/16 KATHY RN DC to [facility] today Subjective Subjective Alert in [facility] on vent via trach.No chest pain or SOB.Scheduled for DC today.. Objective Last 24 Hour Vital Signs Date Time Temp Pulse Resp B/P Pulse Ox O2 Delivery O2 Flow Rate FiO2 12/30/16 16:53 76 18 100 Mechanical Ventilator 40 12/30/16 16:45 72 18 100 Mechanical Ventilator 40 12/30/16 16:45 40 12/30/16 16:43 69 16 40 12/30/16 16:00 97.9 65 16 127/73 100 Mechanical Ventilator 40 12/30/16 16:00 40 12/30/16 16:00 74 12/30/16 14:30 63 17 40 12/30/16 12:42 85 18 100 Mechanical Ventilator 40 12/30/16 12:35 40 12/30/16 12:35 68 16 100 Mechanical Ventilator 40 12/30/16 12:32 65 18 40 12/30/16 12:00 97.7 69 16 125/83 100 Mechanical Ventilator 40 12/30/16 12:00 67 12/30/16 12:00 40 12/30/16 11:31 97.3 12/30/16 10:59 68 18 40 6/26/17 08:45 78 18 40 12/30/16 08:00 97.3 82 23 125/87 100 Mechanical Ventilator 40 12/30/16 08:00 60 12/30/16 08:00 40 12/30/16 06:44 72 16 40 12/30/16 05:25 59 16 40 12/30/16 04:00 97.7 65 17 108/66 100 Mechanical Ventilator 12/30/16 04:00 60 12/30/16 04:00 40 12/30/16 03:22 68 16 40 12/30/16 01:32 65 16 40 12/30/16 00:00 62 12/30/16 00:00 97.7 64 17 117/76 100 Mechanical Ventilator 12/30/16 00:00 40 12/29/16 23:18 89 17 100 Mechanical Ventilator 40 12/29/16 23:08 70 16 100 Mechanical Ventilator 40 12/29/16 23:08 40 12/29/16 23:07 70 16 40 12/29/16 20:40 96 19 40 12/29/16 20:00 96.3 78 16 113/74 100 Mechanical Ventilator 12/29/16 20:00 40 12/29/16 20:00 93 12/29/16 19:39 95 19 40 Intake and Output 12/29/16 12/30/16 19:00 07:00 Intake Total 1352.5 ml 1480 ml Output Total 450 ml 1150 ml Balance 902.5 ml 330 ml Free Water 50 ml 100 ml IV Total 862.5 ml 900 ml Tube Feeding 440 ml 480 ml Output Urine Total 450 ml 1150 ml Laboratory Tests Test 12/30/16 03:55 White Blood Count 6.7 K/UL (4.8-10.8) Red Blood Count 2.72 M/UL (4.70-6.10) L Hemoglobin 8.3 G/DL (14.2-18.0) L Hematocrit 25.9 % (42.0-52.0) L Mean Corpuscular Volume 95 FL (80-99) Mean Corpuscular Hemoglobin 30.5 PG (27.0-31.0) Mean Corpuscular Hemoglobin Concent 32.1 G/DL (32.0-36.0) Red Cell Distribution Width 15.5 % (11.6-14.8) H Platelet Count 238 K/UL (150-450) Mean Platelet Volume 6.5 FL (6.5-10.1) Neutrophils (%) (Auto) 65.8 % (45.0-75.0) Lymphocytes (%) (Auto) 19.5 % (20.0-45.0) L Monocytes (%) (Auto) 8.5 % (1.0-10.0) Eosinophils (%) (Auto) 5.3 % (0.0-3.0) H Basophils (%) (Auto) 0.9 % (0.0-2.0) Sodium Level 143 mEQ/L (135-145) Potassium Level 3.8 mEQ/L (3.4-4.9) Chloride Level 104 mEQ/L (98-107) Carbon Dioxide Level 26 mEQ/L (20-30) Anion Gap 13 (5-15) Blood Urea Nitrogen 3 mg/dL (7-23) L Creatinine 0.4 mg/dL (0.7-1.2) L Estimat Glomerular Filtration Rate > 60 mL/min (>60) Glucose Level 79 mg/dL (74-106) Calcium Level 8.1 mg/dL (8.6-10.2) L Phosphorus Level 2.0 mg/dL (2.5-4.8) L Magnesium Level 1.7 mg/dL (1.7-2.5) Total Bilirubin < 0.2 mg/dL (0.0-1.2) Aspartate Amino Transf (AST/SGOT) 11 U/L (5-40) Alanine Aminotransferase (ALT/SGPT) 7 U/L (3-41) Alkaline Phosphatase 90 U/L (40-129) Total Protein 5.9 g/dL (6.6-8.7) L Albumin 1.6 g/dL (3.5-5.2) L Globulin 4.3 g/dL Albumin/Globulin Ratio 0.3 (1.0-2.7) L Objective HEAD AND NECK: No JVD.Tracheostomy intact. LUNGS: Bilateral Coarse rhonchi. CARDIOVASCULAR: Tachycardic S1, S2 with no gallop or murmur. ABDOMEN: Soft. Gtube intact. 3 Laparoscopy incisions no bleeding EXTREMITIES: One plus edema. OSWALD HILLS Dec 30, 2016 18:52
[2016-12-30 20:00] VITALS: BP 131/90
--- NOTE | 2016-12-31 15:06 | Discharge Summary ---
Discharge Summary Hospital Course Date of Admission Dec 12, 2016 at 17:55 Date of Discharge Dec 30, 2016 at 20:22 Admitting Diagnosis respiratory distress HPI Angel Dixon Jr is a 66 year old male who was admitted on Dec 12, 2016 at 17: 55 for Respiratory Distress Hospital Course dc summary #[id number] Discharge Medications Continued Medications: Acetaminophen (Acetaminophen) 650 Mg/20.3 Ml Solution 650 MG GT Q4HR PRN for Fever/Headache/Mild Pain, 0 Refills Cran/Vitc/Mannose/Inulin/Brom (Uti-Stat Liquid) 3,875 Mg/30 Ml Liquid 3875 MG GT DAILY Folic Acid* (Folic Acid*) 1 Mg Tablet 1 MG GT DAILY Guaifenesin (Guaifenesin) 200 Mg Tablet 200 MG GT EVERY 12 HOURS for For Cough, 0 Refills Multivits W-Min/Ferrous Gluc (Centrum Multivit-Mineral Liq) 9 Mg/15 Ml Liquid 9 MG GT DAILY Polyethylene Glycol 3350* (Miralax*) 17 Gm Powd.pack 17 GM GT BEDTIME Discharge Condition Upon Discharge: stable Discharge Disposition Patient was discharged to SNF/Subacute Facility(03) Discharge Diagnoses: Hua (Vanccarmeloein)Katia NP Dec 31, 2016 15:06
--- NOTE | 2016-12-31 23:15 | Discharge Summary 2 SIG ---
DATE OF ADMISSION: 12/12/2016 DATE OF DISCHARGE: 12/30/2016 REASON FOR ADMISSION: 66-year-old male with chronic respiratory failure, ventilator-dependent, with tracheostomy, dysphagia, G-tube, and COPD presented with shortness of breath and tachycardia. Patient was sent from the half-way facility due to hypoxemia. Upon arrival to emergency department, pulse oximetry was stable on 40% FiO2. The patient denied fever or chills. He denied cough. He denied chest pain. Workup in the emergency room revealed leukocytosis, WBC- 16.1, tachycardia - 120. No fever. Pulse oximetry was 100% on 40%. Chest x-ray revealed large right pleural effusion. Potassium - 5.4. The patientwas admitted for further management. ADMITTING DIAGNOSES: 1. Acute on chronic respiratory failure, 2. ventilator-dependent respiratory failure with tracheostomy status. 3. Large right pleural effusion. 4. Chronic obstructive pulmonary disease 5. Emphysema. 6. Dysphagia, gastrostomy tube. HOSPITAL STAY: The patient admitted to [facility]. The patient started initially on gentle IV fluids. Ventilator support and tracheostomy care provided. Pulmonary toilet provided. Settings were titrated as needed. The patient undergone thoracentesis of large pleural effusion, which yielded 500 mL of pleural fluid. Cytology of pleural fluid cells was negative for malignancy. No evidence of empyema. The patient had a sinus tachycardia. Marketing Operations Consultant followed. Per gas meter installer helper, sinus tachycardia was due to sepsis and respiratory failure. No SVT or atrial fibrillation on monitor. Tachycardia resolved as patient clinical condition improved. GI and Surgery followed. The patient status post colonoscopy. The patient had a large cecum tumor. Surgeon seen and evaluated in preparation for further surgery. Colonoscopy with biopsy was performed prior to plan the extent of the surgery. Cytology of cecum tumor revealed high-grade dysplasia and superficial biopsy could not exclude malignancy. Remaining polyps revealed tubular adenoma, but no high-grade dysplasia. Surgery subsequently was performed on 12/26/2016. Patient status post laparoscopic right hemicolectomy. Course of recovery was uneventful. The patient initially kept NPO until return of bowel sounds. Then slowly started on a tube feeding, tolerated. Patient had bowel movement. Tube feeding rate was increased to goal rate. Strict aspiration precautions were maintained. Pain was controlled with current management. Prior to the surgery, the patient failed swallow evaluation. Speech therapist recommended to keep NPO and continue tube feeding. Hemoglobin and hematocrit were monitored, on the baseline. The patient status post blood transfusion. Blood sugar was managed with sliding scale of insulin, was stable. The patient remained normotensive. No need for any antihypertensive medication at that time. Venous duplex of bilateral lower extremities was negative. DVT and GI prophylaxis provided. Wound care provided as per wound nurse recommendation for sacral decubitus stage III, present on admission. The patient was stable for discharge back to subacute half-way facility. FINAL DIAGNOSES: 1. Acute on chronic respiratory failure 2. Sepsis 3. Ventilator-dependent respiratory failure with tracheostomy status. 4 .Probably recurrent healthcare-associated pneumonia versus ventilator- associated pneumonia. 5. Recurrent urinary tract infection with Acinetobacter. 6. Recurrent right pleural effusion 7. Status post thoracentesis of right pleural effusion 8. Sinus tachycardia due to sepsis and respiratory failure. 9. Elevated carcinoembryonic antigen. 10. Anemia 11. Status post blood transfusion. 12. Large cecal tumor with high-grade dysplasia. 13. Status post laparoscopic right hemicolectomy on 12/26/2016. 14. Sacral decubitus stage III, present on admission. 15. Chronic obstructive pulmonary disease. 16 Emphysema 17. Hypertension 18. Diabetes. 19. Dysphagia with gastrostomy tube feeding. 20. History of deep venous thrombosis. DISCHARGE MEDICATIONS: See medication reconciliation list. DISCHARGE INSTRUCTIONS: The patient discharged to subacute half-way facility. Follow up with the principal administrative clerk and primary doctor at the facility. Steve Rader M.D. Katia OrrF F Thompson HospitalCharly N.PAmaury DR: LOUISE JOB#: [id number] CC: REGULO
== END 2016-12-30 20:22 | DRG 853 ==
LOC: EDBD 17:09 → EDBEDREQ 17:15 → EMR 17:50 → 2W 17:55 → EDBEDREQ 18:20 → 2W 12-14 23:18
PROC: 0W993ZZ Drainage of Right Pleural Cavity, Percutaneous Approach (ICD-10-PCS; principal; 2016-12-12)
PROC: 5A1955Z Respiratory Ventilation, Greater than 96 Consecutive Hours (ICD-10-PCS; principal; 2016-12-12)
PROC: 0DBL8ZZ Excision of Transverse Colon, Via Natural or Artificial Opening Endoscopic (ICD-10-PCS; 2016-12-18 10:26)
PROC: 0DTF4ZZ Resection of Right Large Intestine, Percutaneous Endoscopic Approach (ICD-10-PCS; 2016-12-26)
DX: A41.9 Sepsis, unspecified organism (principal); J96.20 Acute and chronic respiratory failure, unspecified whether with hypoxia or hypercapnia; J90 Pleural effusion, not elsewhere classified; J18.9 Pneumonia, unspecified organism; Z99.11 Dependence on respirator [ventilator] status; J44.0 Chronic obstructive pulmonary disease with (acute) lower respiratory infection; L89.153 Pressure ulcer of sacral region, stage 3; J44.1 Chronic obstructive pulmonary disease with (acute) exacerbation; R13.10 Dysphagia, unspecified; I82.501 Chronic embolism and thrombosis of unspecified deep veins of right lower extremity; N39.0 Urinary tract infection, site not specified; C18.0 Malignant neoplasm of cecum; Z93.0 Tracheostomy status; Z93.1 Gastrostomy status; I10 Essential (primary) hypertension; E11.9 Type 2 diabetes mellitus without complications; I27.2 Other secondary pulmonary hypertension; I95.9 Hypotension, unspecified; K31.9 Disease of stomach and duodenum, unspecified; D50.9 Iron deficiency anemia, unspecified; E87.5 Hyperkalemia; D12.3 Benign neoplasm of transverse colon
CPT/HCPCS: 36415; 36600; 71010; 76942; 80048; 80053; 80069; 80150; 80202; 81003; 82270; 82378; 82550; 82553; 82607; 82746; 82803; 82962; 83540; 83550; 83605; 83615; 83735; 83880; 84100; 84439; 84484; 85007; 85025; 85044; 85060; 85610; 85651; 85730; 86850; 86900; 86901; 86920; 87040; 87081; 87086; 87181; 88104; 93005; 93970; 94002; 94003; 94150; 94640; 94664; J1815; J2250; J2405; J3430; J7620

== ENCOUNTER 2017-07-11 17:36 | Inpatient (IN) | payer MEDICARE, MEDICAID, OTHER ==
[~2017-07-11] VITALS: Ht 182.9 cm; Wt 76.7 kg
[~2017-07-11 17:36] MED LIST changes: +BENZONATATE100 MG GT; +BUDESONIDE0.25 MG/2 IH; +CENTRUM MU9 MG/15 ML GT; +DULCOLAX10 MG RC; +FLEET ENEMA133 ML RECTAL; +FOLIC ACID1 MG GT; +GUAIFENESIN200 MG GT; +METOPROLOL TART25 MG GT; +MILK OF MA400 MG/51 GT; +MIRALAX17 G2 GT; +OMEPRAZOLE20 M2 GT; +PREDNISONE5 M3 GT; +TYLENOL650 MG/20. GT; +UTI-STAT L3875 MG/31 GT; +VITAMIN C500 MG/11 GT
[2017-07-11] MEDS ORDERED: BENADRYL A12.5 MG/5 ORAL (17:57)
[2017-07-11] MEDS ORDERED: ZANTAC150 MG ORAL (17:57)
[2017-07-11] MEDS ORDERED: COLACE100 MG ORAL (17:57)
[2017-07-11] MEDS ORDERED: NORVASC5 MG ORAL (17:57)
[2017-07-11] MEDS ORDERED: Levalbuterol Inh UD 1.25mg/0.5ml HHN ONE (18:00)
[2017-07-11] MEDS ORDERED: Ipratropium 0.02% Inh Soln 2.5ml UD HHN ONE (18:00)
[2017-07-11] MEDS ORDERED: Solu-MEDROL 125mg Inj IVP ONE (18:00)
[2017-07-11 18:32] VITALS: BP 136/100
[2017-07-11 18:40] LABS: BASOPHILS % (AUTO) 2.6 % (0.0-2.0); HEMATOCRIT 37.5 % (42.0-52.0); HEMOGLOBIN 11.5 G/DL (14.2-18.0); LYMPHOCYTES % (AUTO) 14.8 % (20.0-45.0); MEAN CORPUSCULAR VOLUME 91 FL (80-99); MONOCYTES % (AUTO) 6.4 % (1.0-10.0); NEUTROPHILS % (AUTO) 74.2 % (45.0-75.0); PLATELET COUNT 375 K/UL (150-450); RED CELL DISTRIBUTION WIDTH 12.8 % (11.6-14.8); WHITE BLOOD COUNT 12.4 K/UL (4.8-10.8)
[2017-07-11] MEDS ORDERED: Vancomycin 1 GM in D5W 275 ML IVPB ONE (18:45)
[2017-07-11] MEDS ORDERED: Acetaminophen 500mg (ES) tab ORAL ONE (18:45)
[2017-07-11] MEDS ORDERED: Azithromycin 500 MG in NS 275 ML IV ONE (18:45)
[2017-07-11] MEDS ORDERED: Piperacillin/Tazobactam 4.5 GM in NS 110 ML IVPB ONE (18:45)
[2017-07-11] MEDS ORDERED: Zosyn 4.5gm inj ONE (18:57)
[2017-07-11 18:58] LABS: ANION GAP 9 mmol/L (5-15); BLOOD UREA NITROGEN 26 mg/dL (7-18); CALCIUM 8.1 MG/DL (8.5-10.1); CARBON DIOXIDE 27 MMOL/L (21-32); CHLORIDE 101 MMOL/L (98-107); CREATININE 1.2 MG/DL (0.55-1.30); INR 1.3 (0.9-1.1); POTASSIUM 4.1 MMOL/L (3.5-5.1); SODIUM 137 MMOL/L (136-145)
[2017-07-11] MEDS: Oseltamivir 75mg cap ORAL SCH ×2 (18:59→19:53)
[2017-07-11 19:07] LABS: APPEARANCE,URINE CLEAR; BILIRUBIN, URINE NEGATIVE (NEGATIVE); GLUCOSE, URINE (UA) NEGATIVE (NEGATIVE); KETONES,URINE NEGATIVE (NEGATIVE); LEUKOCYTE ESTERASE ,URINE 1+ (NEGATIVE); NITRITE,URINE NEGATIVE (NEGATIVE); PH,URINE 5 (4.5-8.0); PROTEIN,URINE 3+ (NEGATIVE); UROBILINOGEN,URINE 8 MG/DL (0.0-1.0)
[2017-07-11 19:11] LABS: COLOR,URINE YELLOW
[2017-07-11 19:32] LABS: ALANINE AMINOTRANSFERASE 22 U/L (12-78); ALBUMIN 2.7 G/DL (3.4-5.0); ALBUMIN/GLOBULIN RATIO 0.5 (1.0-2.7); ALKALINE PHOSPHATASE 221 U/L (46-116); ASPARTATE AMINO TRANSFERASE 23 U/L (15-37); BILIRUBIN,TOTAL 1.5 MG/DL (0.2-1.0); CKMB < 0.5 NG/ML (0.0-3.6); CREATINE KINASE 111 U/L (26-308)
[2017-07-11 19:36] LABS: BILIRUBIN,DIRECT 0.8 MG/DL (0.0-0.3)
[2017-07-11] MEDS ORDERED: Azithromycin 500mg Inj IV ONE ×2 (20:41→22:39)
[2017-07-11] MEDS ORDERED: Vancomycin 1gm inj IVPB ONE (20:46)
[2017-07-11 22:03] VITALS: BP 130/85
[2017-07-11] MEDS ORDERED: NS 275ml ONE (22:39)
[2017-07-11] MEDS ORDERED: NS 110ml ONE (22:39)
[2017-07-11] MEDS ORDERED: D5W 275ml ONE (22:39)
[2017-07-11] MEDS ORDERED: Morphine Sulfate 4mg/ml Inj IVP PRN (23:00)
[2017-07-11] MEDS ORDERED: Albuterol/Ipratropium 3ml neb HHN PRN (23:00)
[2017-07-11] MEDS ORDERED: Miralax 17gm pkt ORAL PRN (23:00)
[2017-07-11] MEDS ORDERED: LORazepam Inj 2mg/ml 1ml IV PRN (23:00)
[2017-07-12] VITALS: BP 128/87
--- NOTE | 2017-07-12 00:38 | Emergency Room Report ---
History of Present Illness General Chief Complaint: Upper Respiratory Illness Source: Patient, Medical Record Present Illness HPI Patient presents emergency department today complaining of cough congestion and shortness of breath. Patient is ventilator dependent and from a fdc. Patient does have a history of COPD. Symptoms noted to be severe. No other complaints are noted. No other modifying factors. No other associated signs and symptoms. No other complaints were noted. Allergies: Coded Allergies: No Known Allergies (Unverified , 06/17/16) Patient History Past Medical History: HTN, CAD, asthma, COPD Past Surgical History: other - tracheostomy Social History: Denies: smoking, alcohol use, drug use Social History Narrative from fdc Reviewed Nursing Documentation: PMH: Agreed, PSxH: Agreed Nursing Documentation-PMH Hx Cardiac Problems: Yes Hx Hypertension: Yes Hx Diabetes: Yes Hx Cancer: No Hx Gastrointestinal Problems: Yes - esophagitis Hx Dialysis: No Hx Neurological Problems: No - metabolic encephalopathy Hx Cerebrovascular Accident: No Hx Seizures: No Hx Concentration Difficulty: Yes Hx Dysphasia: Yes - dysphagia Hx Weakness: Yes Review of Systems All Other Systems: negative except mentioned in HPI Physical Exam Vital Signs Date Time Temp Pulse Resp B/P (MAP) Pulse Ox O2 Delivery O2 Flow Rate FiO2 07/11/17 17:28 142 27 146/98 98 Mechanical Ventilator 07/11/17 17:48 40 07/11/17 18:32 101.4 Sp02 EP Interpretation: reviewed, normal General Appearance: alert, moderate distress Head: atraumatic Eyes: bilateral eye normal inspection ENT: normal ENT inspection, hearing grossly normal, normal voice Neck: normal inspection, full range of motion, supple, no bony tend Respiratory: respiratory distress, decreased breath sounds, accessory muscle use, wheezing, expiration Cardiovascular #1: no edema, tachycardia Gastrointestinal: normal inspection, normal bowel sounds, non tender, soft, no guarding, no hernia Genitourinary: no CVA tenderness Musculoskeletal: normal inspection, back normal, normal range of motion Neurologic: normal inspection, alert, responsive Psychiatric: normal inspection, judgement/insight normal, anxious Skin: normal inspection, normal color, no rash Procedures Critical Care Time Critical Care Time Patient had a critical medical condition which untreated could potentially result in life or limb threatening injury. Total critical care time excluding procedures was approximately 45 minutes. Medical Decision Making Diagnostic Impression: Primary Impression: Respiratory distress Additional Impressions: COPD exacerbation Pneumonia ER Course Patient presents emergency department today complaining of shortness of breath. Differential diagnoses include acute pneumonia, CHF, acute coronary syndrome, pneumothorax, asthma, COPD flare, just to name a few.Given the severity of the patient's presentation I felt this is a highly complex patient. This patient required extensive workup. Patient laboratory workup shows a white blood cell count. Patient had blood cultures obtained was started on IV antibiotics. Case was discussed with Dr. Andrade. Patient will be made for further treatment. Patient was tachypneic and tachycardic requiring respiratory treatments. Therefore felt was a critical patient patient will be admitted to [facility]. Labs Test 07/11/17 18:00 07/11/17 18:53 White Blood Count 12.4 K/UL (4.8-10.8) Red Blood Count 4.10 M/UL (4.70-6.10) Hemoglobin 11.5 G/DL (14.2-18.0) Hematocrit 37.5 % (42.0-52.0) Mean Corpuscular Volume 91 FL (80-99) Mean Corpuscular Hemoglobin 28.0 PG (27.0-31.0) Mean Corpuscular Hemoglobin Concent 30.7 G/DL (32.0-36.0) Red Cell Distribution Width 12.8 % (11.6-14.8) Platelet Count 375 K/UL (150-450) Mean Platelet Volume 5.9 FL (6.5-10.1) Neutrophils (%) (Auto) 74.2 % (45.0-75.0) Lymphocytes (%) (Auto) 14.8 % (20.0-45.0) Monocytes (%) (Auto) 6.4 % (1.0-10.0) Eosinophils (%) (Auto) 2.0 % (0.0-3.0) Basophils (%) (Auto) 2.6 % (0.0-2.0) Prothrombin Time 13.3 SEC (9.30-11.50) Prothromb Time International Ratio 1.3 (0.9-1.1) Activated Partial Thromboplast Time 36 SEC (23-33) Sodium Level 137 MMOL/L (136-145) Potassium Level 4.1 MMOL/L (3.5-5.1) Chloride Level 101 MMOL/L (98-107) Carbon Dioxide Level 27 MMOL/L (21-32) Anion Gap 9 mmol/L (5-15) Blood Urea Nitrogen 26 mg/dL (7-18) Creatinine 1.2 MG/DL (0.55-1.30) Estimat Glomerular Filtration Rate > 60 mL/min (>60) Glucose Level 118 MG/DL (74-106) Calcium Level 8.1 MG/DL (8.5-10.1) Total Bilirubin 1.5 MG/DL (0.2-1.0) Direct Bilirubin 0.8 MG/DL (0.0-0.3) Aspartate Amino Transf (AST/SGOT) 23 U/L (15-37) Alanine Aminotransferase (ALT/SGPT) 22 U/L (12-78) Alkaline Phosphatase 221 U/L (46-116) Total Creatine Kinase 111 U/L (26-308) Creatine Kinase MB < 0.5 NG/ML (0.0-3.6) Creatine Kinase MB Relative Index 0.4 Troponin I 0.000 ng/mL (0.000-0.056) Pro-B-Type Natriuretic Peptide 99 pg/mL (0-125) Total Protein 8.1 G/DL (6.4-8.2) Albumin 2.7 G/DL (3.4-5.0) Globulin 5.4 g/dL Albumin/Globulin Ratio 0.5 (1.0-2.7) Lipase 69 U/L (73-393) Urine Color Yellow Urine Appearance Clear Urine pH 5 (4.5-8.0) Urine Specific [place] 1.020 (1.005-1.035) Urine Protein 3+ (NEGATIVE) Urine Glucose (UA) Negative (NEGATIVE) Urine Ketones Negative (NEGATIVE) Urine Occult Blood 3+ (NEGATIVE) Urine Nitrite Negative (NEGATIVE) Urine Bilirubin Negative (NEGATIVE) Urine Urobilinogen 8 MG/DL (0.0-1.0) Urine Leukocyte Esterase 1+ (NEGATIVE) Urine RBC 5-10 /HPF (0 - 0) Urine WBC 2-4 /HPF (0 - 0) Urine Squamous Epithelial Cells Occasional /LPF Urine Amorphous Sediment Few /LPF (NONE) Urine Bacteria Moderate /HPF (NONE) EKG Diagnostic Results Rate: normal Rhythm: NSR ST Segments: no acute changes Rhythm Strip Diag. Results EP Interpretation: yes Rate: 130s Rhythm: NSR, no PVC's, no ectopy Chest X-Ray Diagnostic Results Chest X-Ray Diagnostic Results : Chest X-Ray Ordered: Yes # of Views/Limited/Complete: 1 View Indication: Shortness of Breath Interpretation: no effusion, no pneumothorax, other - right-sided infiltrate Impression: Other - pneumonia Electronically Signed by: Electronically signed by Patricia Ellison MD Last Vital Signs Date Time Temp Pulse Resp B/P (MAP) Pulse Ox O2 Delivery O2 Flow Rate FiO2 07/11/17 23:00 122 26 40 07/11/17 22:57 97.9 130/85 97 Room Air Status: improved Disposition: ADMITTED INPATIENT Condition: Serious Referrals: REN ANDRADE (PCP) PATRICIA ELLISON M.D. Jul 12, 2017 00:38
[2017-07-12] MEDS ORDERED: MILK OF MA400 MG/51 ORAL (00:57)
[2017-07-12] MEDS ORDERED: VITAMIN C500 MG/11 PO (00:57)
[2017-07-12] MEDS ORDERED: PROMETHAZI6.25 MG/2 ORAL (00:57)
[2017-07-12] MEDS ORDERED: GUAIFENESI100 MG/5 M ORAL (00:57)
[2017-07-12] MEDS ORDERED: ZINC SULFATE220 M1 ORAL (00:57)
[2017-07-12] MEDS ORDERED: DIPHENOXYLATE-1 EACH PO (00:57)
[2017-07-12] MEDS ORDERED: MULTI-DELYN237 ML ORAL (00:57)
[2017-07-12] MEDS ORDERED: FOLIC ACID1 MG ORAL (00:57)
[2017-07-12] MEDS ORDERED: UTI-STAT L3875 MG/31 PO (00:57)
[2017-07-12] MEDS ORDERED: ALBUTEROL2.5 MG/3 M INH (00:57)
[2017-07-12] MEDS ORDERED: BENADRYL25 MG ORAL (00:57)
[2017-07-12 04:00] VITALS: BP 140/90
[2017-07-12] MEDS: Albuterol/Ipratropium 3ml neb HHN PRN ×4 (05:01→23:36)
[2017-07-12 08:00] VITALS: BP 132/88
[2017-07-12 08:23] LABS: HEMATOCRIT 34.3 % (42.0-52.0); HEMOGLOBIN 10.8 G/DL (14.2-18.0); MEAN CORPUSCULAR VOLUME 91 FL (80-99); PLATELET COUNT 355 K/UL (150-450); RED BLOOD COUNT 3.75 M/UL (4.70-6.10); RED CELL DISTRIBUTION WIDTH 13.1 % (11.6-14.8); WHITE BLOOD COUNT 13.9 K/UL (4.8-10.8)
[2017-07-12 08:35] LABS: ANION GAP 9 mmol/L (5-15); BLOOD UREA NITROGEN 22 mg/dL (7-18); CARBON DIOXIDE 25 MMOL/L (21-32); CHLORIDE 105 MMOL/L (98-107); CREATININE 1.1 MG/DL (0.55-1.30); POTASSIUM 4.6 MMOL/L (3.5-5.1); SODIUM 139 MMOL/L (136-145)
--- NOTE | 2017-07-12 09:07 | History and Physical ---
History of Present Illness General Date patient seen: Jul 12, 2017 Time patient seen: 08:00 Reason for Hospitalization: respiratory distress Present Illness HPI 66 y/old male with PMH of VDRF, trach, dysphagia, G tube, HTN, COPD, DM, encephalopathy presented to ED with congestion and respiratory distress . Patient noted to be febrile, tachycardic, tachypneic Lab work revealed leukocytosis CXR with evidence of likely R sided infiltrate UA with moderate bacteria, + 1 leuk esterase influenza screen negative ECG -SR ,no acute ischemic changes , troponin negative patient was admitted for further management Allergies: Coded Allergies: No Known Allergies (Unverified , 06/17/16) Medication History Scheduled Amlodipine Besylate (Norvasc), 5 MG ORAL DAILY, (Reported) Cran/Vitc/Mannose/Inulin/Brom (Uti-Stat Liquid), 3,875 MG PO DAILY, (Reported) Docusate Sodium* (Colace*), 100 MG ORAL DAILY, (Reported) Folic Acid* (Folic Acid*), 1 MG ORAL DAILY, (Reported) Multivitamin Liquid* (Multi-Delyn*), 15 ML ORAL DAILY, (Reported) Ranitidine Hcl* (Zantac*), 150 MG ORAL DAILY, (Reported) Vit C/Ascorbate Ca/Ascorb Sod (Vitamin C 500 Mg/15 Ml Liquid), 500 MG GT DAILY, (Reported) Zinc Sulfate (Zinc Sulfate*), 220 MG ORAL DAILY, (Reported) Scheduled PRN Acetaminophen (Acetaminophen), 650 MG GT Q4HR PRN for Fever/Headache/Mild Pain, (Reported) Albuterol Sulfate* (Albuterol Sulfate Hhn*), 3 ML INH Q4H PRN for Shortness of Breath, (Reported) Bisacodyl (Dulcolax), 10 MG RC for Constipation, (Reported) Diphenhydramine Hcl* (Benadryl*), 25 MG ORAL Q8HR PRN for Itching, (Reported) Diphenoxylate Hcl/Atropine (Diphenoxylate-Atropine Tablet), 1 EACH PO Q4HR PRN for Diarrhea, (Reported) Guaifenesin* (Guaifenesin), 5 ML ORAL Q6H PRN for For Cough, (Reported) Magnesium Hydroxide* (Milk Of Magnesia*), 30 ML ORAL QHS PRN for Constipation, ( Reported) Na Phos,M-B/Na Phos,Di-Ba* (Fleet Enema*), 118 ML RECTAL for Constipation, ( Reported) Promethazine HCl (Promethazine HCl), 5 ML ORAL Q6H PRN for For Cough, (Reported) Miscellaneous Medications Vit C/Ascorbate Ca/Ascorb Sod (Vitamin C 500 Mg/15 Ml Liquid), 500 MG PO, ( Reported) Patient History History Provided By: Medical Record Healthcare decision maker N Resuscitation status Full Code Advanced Directive on File Yes Past Medical/Surgical History Past Medical/Surgical History: (1) Adenocarcinoma of cecum (2) Severe anemia (3) Gastric mass (4) Lung nodule (5) DVT (deep venous thrombosis) (6) Encephalopathy acute (7) ENMA (iron deficiency anemia) (8) Dysphagia (9) Emphysema of lung (10) Acute blood loss anemia (11) Feeding by G-tube (12) Lung abscess Review of Systems ROS Narrative unable to obtain due to pt being on vent Physical Exam General Appearance: alert, other - on Vent 600-40%-16 PEEP 8 Lines, tubes and drains: peripheral HEENT: normocephalic, atraumatic, anicteric Neck: non-tender, trach - Portex #8, secretions small, white, thin Respiratory/Chest: rhonchi - bilaterally - scattered Cardiovascular/Chest: regular rhythm - ST, tachycardia Abdomen: normal bowel sounds, non tender, soft, feeding tube Extremities: no calf tenderness, no edema Neurologic: abnormal gait, alert, responsive Last 24 Hour Vital Signs Date Time Temp Pulse Resp B/P (MAP) Pulse Ox O2 Delivery O2 Flow Rate FiO2 07/12/17 06:37 97 26 40 07/12/17 05:04 104 26 100 Mechanical Ventilator 65 07/12/17 05:00 104 25 40 07/12/17 04:00 60 07/12/17 04:00 98.2 103 24 140/90 100 Mechanical Ventilator 65 07/12/17 04:00 90 07/12/17 03:30 114 24 40 07/12/17 01:27 120 25 40 07/12/17 00:00 105 07/12/17 00:00 60 07/12/17 00:00 98.2 106 24 128/87 100 Mechanical Ventilator 60 07/11/17 23:00 122 26 40 07/11/17 22:57 97.9 103 25 130/85 97 Room Air 40 07/11/17 22:03 97.9 103 25 130/85 97 Room Air 40 07/11/17 21:59 130 26 40 07/11/17 20:06 97.9 07/11/17 18:34 40 07/11/17 18:32 101.4 136 27 136/100 99 Room Air 07/11/17 18:18 143 21 100 Mechanical Ventilator 40 07/11/17 18:11 141 26 99 Mechanical Ventilator 40 07/11/17 18:10 141 26 Mechanical Ventilator 40 07/11/17 18:00 133 27 Mechanical Ventilator 40 07/11/17 17:48 140 27 40 07/11/17 17:28 142 27 146/98 98 Mechanical Ventilator Intake and Output 07/11/17 07/12/17 19:00 07:00 Intake Total 1660 ml Output Total 500 ml Balance 1160 ml Intake IV Total 1660 ml Output Urine Total 500 ml Laboratory Tests Test 07/11/17 18:00 07/11/17 18:53 07/12/17 07:57 White Blood Count 12.4 K/UL (4.8-10.8) H 13.9 K/UL (4.8-10.8) H Red Blood Count 4.10 M/UL (4.70-6.10) L 3.75 M/UL (4.70-6.10) L Hemoglobin 11.5 G/DL (14.2-18.0) L 10.8 G/DL (14.2-18.0) L Hematocrit 37.5 % (42.0-52.0) L 34.3 % (42.0-52.0) L Mean Corpuscular Volume 91 FL (80-99) 91 FL (80-99) Mean Corpuscular Hemoglobin 28.0 PG (27.0-31.0) 28.9 PG (27.0-31.0) Mean Corpuscular Hemoglobin Concent 30.7 G/DL (32.0-36.0) L 31.6 G/DL (32.0-36.0) L Red Cell Distribution Width 12.8 % (11.6-14.8) 13.1 % (11.6-14.8) Platelet Count 375 K/UL (150-450) 355 K/UL (150-450) Mean Platelet Volume 5.9 FL (6.5-10.1) L 6.5 FL (6.5-10.1) Neutrophils (%) (Auto) 74.2 % (45.0-75.0) % (45.0-75.0) Lymphocytes (%) (Auto) 14.8 % (20.0-45.0) L % (20.0-45.0) Monocytes (%) (Auto) 6.4 % (1.0-10.0) % (1.0-10.0) Eosinophils (%) (Auto) 2.0 % (0.0-3.0) % (0.0-3.0) Basophils (%) (Auto) 2.6 % (0.0-2.0) H % (0.0-2.0) Prothrombin Time 13.3 SEC (9.30-11.50) H Prothromb Time International Ratio 1.3 (0.9-1.1) H Activated Partial Thromboplast Time 36 SEC (23-33) H Sodium Level 137 MMOL/L (136-145) 139 MMOL/L (136-145) Potassium Level 4.1 MMOL/L (3.5-5.1) 4.6 MMOL/L (3.5-5.1) Chloride Level 101 MMOL/L (98-107) 105 MMOL/L (98-107) Carbon Dioxide Level 27 MMOL/L (21-32) 25 MMOL/L (21-32) Anion Gap 9 mmol/L (5-15) 9 mmol/L (5-15) Blood Urea Nitrogen 26 mg/dL (7-18) H 22 mg/dL (7-18) H Creatinine 1.2 MG/DL (0.55-1.30) 1.1 MG/DL (0.55-1.30) Estimat Glomerular Filtration Rate > 60 mL/min (>60) > 60 mL/min (>60) Glucose Level 118 MG/DL (74-106) H 151 MG/DL (74-106) H Calcium Level 8.1 MG/DL (8.5-10.1) L 9.0 MG/DL (8.5-10.1) Total Bilirubin 1.5 MG/DL (0.2-1.0) H Direct Bilirubin 0.8 MG/DL (0.0-0.3) H Aspartate Amino Transf (AST/SGOT) 23 U/L (15-37) Alanine Aminotransferase (ALT/SGPT) 22 U/L (12-78) Alkaline Phosphatase 221 U/L (46-116) H Total Creatine Kinase 111 U/L (26-308) Creatine Kinase MB < 0.5 NG/ML (0.0-3.6) Creatine Kinase MB Relative Index 0.4 Troponin I 0.000 ng/mL (0.000-0.056) Pro-B-Type Natriuretic Peptide 99 pg/mL (0-125) Total Protein 8.1 G/DL (6.4-8.2) Albumin 2.7 G/DL (3.4-5.0) L Pending Globulin 5.4 g/dL Albumin/Globulin Ratio 0.5 (1.0-2.7) L Lipase 69 U/L (73-393) L Urine Color Yellow Urine Appearance Clear Urine pH 5 (4.5-8.0) Urine Specific [place] 1.020 (1.005-1.035) Urine Protein 3+ (NEGATIVE) H Urine Glucose (UA) Negative (NEGATIVE) Urine Ketones Negative (NEGATIVE) Urine Occult Blood 3+ (NEGATIVE) H Urine Nitrite Negative (NEGATIVE) Urine Bilirubin Negative (NEGATIVE) Urine Urobilinogen 8 MG/DL (0.0-1.0) H Urine Leukocyte Esterase 1+ (NEGATIVE) H Urine RBC 5-10 /HPF (0 - 0) H Urine WBC 2-4 /HPF (0 - 0) Urine Squamous Epithelial Cells Occasional /LPF Urine Amorphous Sediment Few /LPF (NONE) H Urine Bacteria Moderate /HPF (NONE) H Neutrophils % (Manual) Pending Lymphocytes % (Manual) Pending Platelet Estimate Pending Platelet Morphology Pending Phosphorus Level Pending Microbiology Date/Time Source Procedure Growth Status 07/11/17 18:20 Nasal Nares Influenza Types A,B Antigen (JACINTA) - Final Complete Height (Feet): 6 Height (Inches): 0.00 Weight (Pounds): 164 Medications Current Medications Medications (Trade) Dose Ordered Sig/Shraddha Route PRN Reason Start Time Stop Time Status Last Admin Dose Admin Acetaminophen (Tylenol) 650 mg Q4H PRN ORAL FEVER 07/11/17 23:00 08/10/17 22:59 Albuterol/ Ipratropium (Albuterol/ Ipratropium) 3 ml Q4H PRN HHN Shortness of Breath 07/12/17 04:30 07/17/17 04:29 07/12/17 05:01 Amlodipine Besylate (Norvasc) 5 mg DAILY ORAL 07/12/17 09:00 08/11/17 08:59 Dextrose (Dextrose 50%) STAT PRN IV Hypoglycemia 07/11/17 23:00 08/10/17 22:59 Heparin Sodium (Porcine) (Heparin 5000 units/ml) 5,000 units EVERY 12 HOURS SUBQ 07/12/17 09:00 08/11/17 08:59 Lorazepam (Ativan 2mg/ml 1ml) 2 mg EVERY 2 HOURS PRN IV For Anxiety 07/11/17 23:00 07/18/17 22:59 Morphine Sulfate (Morphine Sulfate) 4 mg EVERY 4 HOURS PRN IVP Severe Pain (Pain Scale 7-10) 07/11/17 23:00 07/18/17 22:59 Ondansetron HCl (Zofran) 4 mg Q6H PRN IVP Nausea & Vomiting 07/11/17 23:00 08/10/17 22:59 Pantoprazole (Protonix) 40 mg DAILY IV 07/12/17 09:00 08/11/17 08:59 Polyethylene Glycol (Miralax) 17 gm DAILYPRN PRN ORAL Constipation 07/11/17 23:00 08/10/17 22:59 Vancomycin HCl 1 gm/Dextrose 275 ml @ 183.3 mls/ hr Q24H IV 07/12/17 19:00 07/17/17 18:59 Assessment/Plan Assessment/Plan ASSESSMENT acute on chronic respiratory failure VDRF/trach status possible sepsis PNA likely COPD exacerbation possible UTI dysphagia G tube encephalopathy HTN PLAN OF CARE JORDAN Vent/trach care pulm toilet obtain baseline ABG and titrate settings as needed fup with CXR empiric abx fup with cx ID consult IV steroids and taper as permitted strict aspiration precautions GT feeding, monitor tolerance BP management with CCB and optimize as needed DVT GI prophayxlsi bowel regimen hx of DM, not on insulin, will check HgA1c case discussed and evaluated by supervising physician Katia Sequeira NP (Vanchtein) Jul 12, 2017 09:07
[2017-07-12] MEDS: Pantoprazole Inj IV SCH (09:08)
[2017-07-12] MEDS: Heparin 5000 units/ml inj SUBQ SCH ×2 (09:09→20:17)
[2017-07-12 09:26] LABS: ALBUMIN 2.6 G/DL (3.4-5.0); ANION GAP 11 mmol/L (5-15); BLOOD UREA NITROGEN 22 mg/dL (7-18); CARBON DIOXIDE 24 MMOL/L (21-32); CHLORIDE 104 MMOL/L (98-107); CREATININE 1.1 MG/DL (0.55-1.30); PHOSPHORUS 4.2 MG/DL (2.5-4.9); POTASSIUM 4.6 MMOL/L (3.5-5.1); SODIUM 139 MMOL/L (136-145)
[2017-07-12 12:00] VITALS: BP 118/87
--- NOTE | 2017-07-12 15:51 | Consultation ---
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 Jul 12, 2017 15:51
[2017-07-12 16:00] VITALS: BP 134/86
[2017-07-12] MEDS: Vancomycin 750mg/NS 250ml IVPB SCH (16:40)
[2017-07-12] MEDS: Solu-MEDROL 40mg Inj IVP SCH ×2 (18:13→23:39)
[2017-07-12] MEDS ORDERED: Vancomycin 1 GM in D5W 275 ML IV SCH (19:00)
[2017-07-12 20:00] VITALS: BP 132/86
[2017-07-12] MEDS: Piperacillin/Tazobactam 3.375 GM in NS 110 ML IVPB SCH (20:16)
[2017-07-13] VITALS: BP 110/72
[2017-07-13] MEDS: Piperacillin/Tazobactam 3.375 GM in NS 110 ML IVPB SCH ×3 (02:34→20:15)
[2017-07-13 04:00] VITALS: BP 110/72
[2017-07-13 04:54] LABS: HEMATOCRIT 29.5 % (42.0-52.0); HEMOGLOBIN 9.4 G/DL (14.2-18.0); MEAN CORPUSCULAR VOLUME 90 FL (80-99); PLATELET COUNT 391 K/UL (150-450); RED BLOOD COUNT 3.29 M/UL (4.70-6.10); RED CELL DISTRIBUTION WIDTH 13.1 % (11.6-14.8); WHITE BLOOD COUNT 12.1 K/UL (4.8-10.8)
[2017-07-13 05:15] LABS: ANION GAP 5 mmol/L (5-15); BLOOD UREA NITROGEN 25 mg/dL (7-18); CALCIUM 8.5 MG/DL (8.5-10.1); CARBON DIOXIDE 30 MMOL/L (21-32); CHLORIDE 105 MMOL/L (98-107); CREATININE 1.1 MG/DL (0.55-1.30); POTASSIUM 4.5 MMOL/L (3.5-5.1); SODIUM 140 MMOL/L (136-145)
[2017-07-13] MEDS: Albuterol/Ipratropium 3ml neb HHN PRN ×4 (05:26→21:12)
[2017-07-13] MEDS: Vancomycin 750mg/NS 250ml IVPB SCH ×2 (05:57→16:39)
[2017-07-13] MEDS: Solu-MEDROL 40mg Inj IVP SCH ×3 (05:57→20:15)
[2017-07-13] MEDS: Pantoprazole Inj IV SCH (08:59)
[2017-07-13 09:00] VITALS: BP 135/86
[2017-07-13] MEDS: Heparin 5000 units/ml inj SUBQ SCH ×2 (09:00→20:16)
[2017-07-13 12:00] VITALS: BP 135/80
--- NOTE | 2017-07-13 13:18 | Pulmonology Progress Note ---
Assessment/Plan Assessment/Plan ASSESSMENT acute on chronic respiratory failure VDRF/trach status possible sepsis PNA likely COPD exacerbation possible UTI dysphagia G tube encephalopathy HTN PLAN OF CARE JORDAN Vent/trach care pulm toilet baseline ABG stable on current settings, keep as is and titrate as needed fup with CXR empiric abx sputum cx + GNR, influenza screen negative, blood cx prel negative ID follows IV steroids and taper as permitted strict aspiration precautions GT feeding, monitor tolerance BP management with CCB and optimize as needed DVT GI prophayxlsi bowel regimen hx of DM, not on insulin, HgA1c -5.2 below threshold for diabetes, no need for BS management case discussed and evaluated by supervising physician Subjective Allergies: Coded Allergies: No Known Allergies (Unverified , 06/17/16) Subjective no signs of resp distress feeling somewhat better Objective Last 24 Hour Vital Signs Date Time Temp Pulse Resp B/P (MAP) Pulse Ox O2 Delivery O2 Flow Rate FiO2 07/13/17 12:00 97.9 103 25 135/80 100 Mechanical Ventilator 30 07/13/17 12:00 30 07/13/17 11:39 92 25 100 Mechanical Ventilator 30 07/13/17 11:29 91 24 30 07/13/17 09:12 92 26 30 07/13/17 09:00 97.3 98 29 135/86 100 Mechanical Ventilator 30 07/13/17 08:59 98 135/86 07/13/17 08:00 84 07/13/17 08:00 30 07/13/17 07:16 96 24 30 07/13/17 05:34 101 26 100 Mechanical Ventilator 40 07/13/17 05:26 98 30 100 Mechanical Ventilator 40 07/13/17 04:31 94 16 40 07/13/17 04:00 98.0 95 25 110/72 100 Mechanical Ventilator 40 07/13/17 04:00 60 07/13/17 04:00 95 07/13/17 03:15 99 18 40 07/13/17 00:47 97 24 40 07/13/17 00:00 60 07/13/17 00:00 93 07/13/17 00:00 98.0 95 25 110/72 100 Mechanical Ventilator 40 07/12/17 23:45 98 26 100 Mechanical Ventilator 40 07/12/17 23:36 96 23 100 Mechanical Ventilator 40 07/12/17 23:21 94 28 40 07/12/17 21:12 101 24 40 07/12/17 20:00 60 07/12/17 20:00 98.0 91 25 132/86 99 Mechanical Ventilator 40 07/12/17 20:00 93 07/12/17 19:12 97 24 40 07/12/17 17:44 104 26 99 Mechanical Ventilator 40 07/12/17 17:31 105 25 99 Mechanical Ventilator 40 07/12/17 17:23 108 26 40 07/12/17 16:00 60 07/12/17 16:00 98 07/12/17 16:00 97.9 105 17 134/86 97 Mechanical Ventilator 40 07/12/17 14:45 108 25 40 Intake and Output 07/12/17 07/13/17 19:00 07:00 Intake Total 770.000 ml 386.6 ml Output Total 575 ml Balance 195.000 ml 386.6 ml Intake Oral 420 ml IV Total 350.000 ml 386.6 ml Output Urine Total 575 ml # Bowel Movements 3 Objective General Appearance: alert, on Vent 600-40%-16 PEEP 8 Lines, tubes and drains: peripheral HEENT: normocephalic, atraumatic, anicteric Neck: non-tender, trach - Portex #8, secretions small, white, thin Respiratory/Chest: bilateral rhonchi, scattered Cardiovascular/Chest: regular rhythm - SR on tele Abdomen: normal bowel sounds, non tender, soft, feeding tube Extremities: no calf tenderness, no edema Neurologic: abnormal gait, alert, responsive Microbiology Date/Time Source Procedure Growth Status 07/11/17 18:10 Blood Blood Culture - Preliminary NO GROWTH AFTER 24 HOURS Resulted 07/11/17 17:50 Blood Blood Culture - Preliminary NO GROWTH AFTER 24 HOURS Resulted 07/11/17 18:20 Nasal Nares Influenza Types A,B Antigen (JACINTA) - Final Complete 07/11/17 18:53 Urine,Clean Catch Urine Culture - Preliminary Gram Negative Rafael Resulted Laboratory Tests 07/13/17 04:15: White Blood Count 12.1H, Red Blood Count 3.29L, Hemoglobin 9.4L, Hematocrit 29.5L, Mean Corpuscular Volume 90, Mean Corpuscular Hemoglobin 28.6, Mean Corpuscular Hemoglobin Concent 31.9L, Red Cell Distribution Width 13.1, Platelet Count 391, Mean Platelet Volume 7.2, Neutrophils (%) (Auto) , Lymphocytes (%) (Auto) , Monocytes (%) (Auto) , Eosinophils (%) (Auto) , Basophils (%) (Auto) , Differential Total Cells Counted 100, Neutrophils % ( Manual) 89H, Lymphocytes % (Manual) 7L, Monocytes % (Manual) 4, Eosinophils % ( Manual) 0, Basophils % (Manual) 0, Band Neutrophils 0, Platelet Estimate Adequate, Platelet Morphology Normal, Sodium Level 140, Potassium Level 4.5, Chloride Level 105, Carbon Dioxide Level 30, Anion Gap 5, Blood Urea Nitrogen 25H, Creatinine 1.1, Estimat Glomerular Filtration Rate > 60, Glucose Level 158H , Hemoglobin A1c 5.2, Calcium Level 8.5, C-Reactive Protein, Quantitative 19.5H , Vancomycin Level Trough 6.6 07/13/17 07:03: Arterial Blood pH 7.410, Arterial Blood Partial Pressure CO2 47.1H, Arterial Blood Partial Pressure O2 161.7H, Arterial Blood HCO3 29.7H, Arterial Blood Oxygen Saturation 98.2H, Arterial Blood Base Excess 4.5, Joseluis Test Positive Current Medications Medications (Trade) Dose Ordered Sig/Shraddha Route PRN Reason Start Time Stop Time Status Last Admin Dose Admin Acetaminophen (Tylenol) 650 mg Q4H PRN ORAL FEVER 07/11/17 23:00 08/10/17 22:59 Albuterol/ Ipratropium (Albuterol/ Ipratropium) 3 ml Q4H PRN HHN Shortness of Breath 07/12/17 04:30 07/17/17 04:29 07/13/17 11:38 Amlodipine Besylate (Norvasc) 5 mg DAILY ORAL 07/12/17 09:00 08/11/17 08:59 07/13/17 08:59 Dextrose (Dextrose 50%) STAT PRN IV Hypoglycemia 07/11/17 23:00 08/10/17 22:59 Heparin Sodium (Porcine) (Heparin 5000 units/ml) 5,000 units EVERY 12 HOURS SUBQ 07/12/17 09:00 08/11/17 08:59 07/13/17 09:00 Levofloxacin 100 ml @ 100 mls/hr Q24H IVPB 07/12/17 18:30 07/19/17 18:29 07/12/17 18:13 Lorazepam (Ativan 2mg/ml 1ml) 2 mg EVERY 2 HOURS PRN IV For Anxiety 07/11/17 23:00 07/18/17 22:59 Methylprednisolone Sodium Succinate (Solu-MEDROL) 40 mg EVERY 6 HOURS IVP 07/12/17 18:00 08/11/17 17:59 07/13/17 11:04 Morphine Sulfate (Morphine Sulfate) 4 mg EVERY 4 HOURS PRN IVP Severe Pain (Pain Scale 7-10) 07/11/17 23:00 07/18/17 22:59 Ondansetron HCl (Zofran) 4 mg Q6H PRN IVP Nausea & Vomiting 07/11/17 23:00 08/10/17 22:59 Pantoprazole (Protonix) 40 mg DAILY IV 07/12/17 09:00 08/11/17 08:59 07/13/17 08:59 Piperacillin Sod/ Tazobactam Sod 3.375 gm/Sodium Chloride 110 ml @ 27.5 mls/hr Q8H IVPB 07/12/17 19:30 07/19/17 19:29 07/13/17 11:04 Polyethylene Glycol (Miralax) 17 gm DAILYPRN PRN ORAL Constipation 07/11/17 23:00 08/10/17 22:59 Vancomycin/Sodium Chloride 250 ml @ 166.667 mls/hr Q12H IVPB 07/12/17 17:00 07/17/17 16:59 07/13/17 05:57 Katia Sequeira NP (Vanchtein) Jul 13, 2017 13:18
[2017-07-13] MEDS ORDERED: Solu-MEDROL 40mg Inj IVP SCH (14:00)
[2017-07-13 16:00] VITALS: BP 123/75
[2017-07-13 19:44] VITALS: BP 122/79
[2017-07-14] VITALS: BP 122/78
[2017-07-14] MEDS: Piperacillin/Tazobactam 3.375 GM in NS 110 ML IVPB SCH ×3 (03:44→18:31)
[2017-07-14 04:00] VITALS: BP 118/70
[2017-07-14] MEDS: Albuterol/Ipratropium 3ml neb HHN PRN ×4 (04:50→22:45)
[2017-07-14] MEDS: Solu-MEDROL 40mg Inj IVP SCH ×3 (05:40→21:45)
[2017-07-14 06:40] LABS: BASOPHILS % (AUTO) 0.5 % (0.0-2.0); HEMATOCRIT 30.3 % (42.0-52.0); HEMOGLOBIN 9.7 G/DL (14.2-18.0); LYMPHOCYTES % (AUTO) 8.2 % (20.0-45.0); MEAN CORPUSCULAR VOLUME 92 FL (80-99); NEUTROPHILS % (AUTO) 84.3 % (45.0-75.0); PLATELET COUNT 411 K/UL (150-450); RED CELL DISTRIBUTION WIDTH 12.8 % (11.6-14.8); WHITE BLOOD COUNT 12.5 K/UL (4.8-10.8)
[2017-07-14 06:49] LABS: ANION GAP 7 mmol/L (5-15); BLOOD UREA NITROGEN 26 mg/dL (7-18); CALCIUM 8.5 MG/DL (8.5-10.1); CARBON DIOXIDE 29 MMOL/L (21-32); CHLORIDE 104 MMOL/L (98-107); SODIUM 140 MMOL/L (136-145)
[2017-07-14 08:00] VITALS: BP 126/80
[2017-07-14] MEDS: Vancomycin 750mg/NS 250ml IVPB SCH ×2 (08:13→20:16)
[2017-07-14] MEDS: Pantoprazole Inj IV SCH (08:13)
[2017-07-14] MEDS: Heparin 5000 units/ml inj SUBQ SCH ×2 (08:14→20:18)
--- NOTE | 2017-07-14 08:30 | Consultation ---
DATE OF CONSULTATION: 07/12/2017 INFECTIOUS DISEASES CONSULTATION CONSULTING PHYSICIAN: Anibal Trujillo M.D. REFERRING PHYSICIAN: Demetrius Andrade M.D. REASON FOR CONSULTATION: Evaluation of the patient for pneumonia. HISTORY OF PRESENT ILLNESS: The patient is a 66-year-old male with multiple medical problems as listed below, who was admitted to 00:18 [facility] for possible pneumonia, sepsis and chills. Infectious Diseases consultation has been requested for further evaluation of the patient's antibiotic management. It is difficult to get detailed information from the patient due to the patient is on vent; however, limited information was obtained through interviewing him. He is now complaining of significant amount of cough. According to the nurse, the patient has 01:00 respiratory secretions. PAST MEDICAL HISTORY: 1. History of interstitial pneumonia. 2. History of multidrug-resistant Acinetobacter and Pseudomonas pneumonia. 3. History of recurrent pleural effusion. 4. History of multidrug-resistant Acinetobacter and UTI. 5. The patient 01:39 negative in the past. 6. The patient has history of colon mass status post hemicolectomy. 7. History of ventilator-dependent respiratory failure. 8. Pulmonary hypertension. 9. Pulmonary nodules. 10. History of right lower extremity DVT and thrombocytosis. MEDICATIONS: Vancomycin and Zosyn. SOCIAL HISTORY: The patient lives in a halfway. FAMILY HISTORY: Unavailable. REVIEW OF SYSTEMS: Limited as mentioned above. PHYSICAL EXAMINATION: VITAL SIGNS: Temperature 101.4, pulse 86, respiratory rate 18, and blood pressure 118/87. HEENT: No pale conjunctivae. No icterus. NECK: Trach in place. CHEST: Coarse breathing sounds. HEART: S1 and S2. ABDOMEN: Soft and nontender. Mildly distended. EXTREMITIES: No cyanosis. NEUROLOGIC: Awake and alert. GENITOURINARY: The patient has a condom catheter. LABORATORY AND DIAGNOSTIC DATA: White blood cells. 13.9, hemoglobin 10.8, and platelets 355. UA unremarkable. BUN 22 and creatinine 1.1. ALT and AST unremarkable. Alkaline phosphatase 122. Rapid influenza test negative. Chest x-ray, partial parenchymal consolidation, fissure disease, subsegmental atelectasis. ASSESSMENT: The patient is a 66-year-old male with: 1. Fever. 2. 05:16 ventilator-associated pneumonia. 3. Rapid influenza test negative. 4. Leukocytosis. 5. Rule out bacteremia. 6. Rule out biliary disease. PLAN: 1. We will continue the patient on vancomycin and Zosyn without Levaquin. 2. Monitor CBC. 3. Monitor BMP. 4. Monitor cultures (blood, urine, and sputum). 5. Monitor chest x-ray. 6. Legionella antigen, CRP and procalcitonin. 7. Ultrasound of the abdomen for evaluation 06:09 rule out biliary disease. 8. Based on the patient's clinical course and laboratories, we will do further recommendations. Thank you, Dr. Andrade, for allowing me to participate in the care of this patient. I will follow the patient with you during this hospitalization. Anibal Trujillo M.D. DR: MANDEEP JOB#: [id number] CC:
--- NOTE | 2017-07-14 10:33 | Infectious Diseases Prog Note ---
Assessment/Plan Assessment/Plan ASSESSMENT: The patient is a 66-year-old male with: 1. Fever, improving 2. Possible ventilator-associated pneumonia. -CXR p -sp cx p 3. Rapid influenza test negative. 4. Leukocytosis, mild, stable 5. Rule out bacteremia. -Bcx NTD 6. Rule out biliary disease. -Abd US p 7. Assymptomatic bacteriuria -u/a neg; ucx >100k Proteus ( S Zosyn, levaquin, amikacin) 8. VRE colonized PLAN: 1. Continue IV vancomycin and Zosyn #4 pending sp cx -07/12 SP Tamiflu #2 -07/11 Azithromycin x1 2. Monitor CBC. 3. Monitor BMP. 4. Monitor cultures (blood,sputum). 5. Monitor chest x-ray. 6. f/u Legionella antigen 7. f/u Ultrasound of the abdomen 8. Based on the patient's clinical course and laboratories, we will do further recommendations. Thank you, Dr. Andrade, for allowing me to participate in the care of this patient. I will follow the patient with you during this hospitalization. Subjective Allergies: Coded Allergies: No Known Allergies (Unverified , 06/17/16) Subjective afebrile in >48hrs stable leukocytosis awaiting CXR report/image and sp cx results Objective Vital Signs Last 24 Hour Vital Signs Date Time Temp Pulse Resp B/P (MAP) Pulse Ox O2 Delivery O2 Flow Rate FiO2 07/14/17 09:09 61 16 30 07/14/17 08:13 79 126/80 07/14/17 08:00 67 07/14/17 08:00 97.5 79 20 126/80 100 Mechanical Ventilator 30 07/14/17 08:00 30 07/14/17 07:05 74 24 30 07/14/17 04:52 107 21 97 Mechanical Ventilator 30 07/14/17 04:48 107 21 30 07/14/17 04:00 30 07/14/17 04:00 81 07/14/17 04:00 97.6 70 20 118/70 100 Mechanical Ventilator 30 07/14/17 02:37 94 26 30 07/14/17 00:56 96 27 30 07/14/17 00:00 97.5 82 22 122/78 100 Mechanical Ventilator 30 07/14/17 00:00 30 07/14/17 00:00 86 07/13/17 23:12 109 26 30 07/13/17 20:00 30 07/13/17 20:00 73 07/13/17 19:44 97.8 92 27 122/79 99 Mechanical Ventilator 30 07/13/17 19:20 97 28 30 07/13/17 17:28 98 23 100 Mechanical Ventilator 40 07/13/17 17:28 93 26 30 07/13/17 17:21 98 23 100 Mechanical Ventilator 30 07/13/17 16:00 30 07/13/17 16:00 98.3 89 27 123/75 99 Mechanical Ventilator 30 07/13/17 16:00 101 07/13/17 14:58 93 27 30 07/13/17 13:29 102 28 30 07/13/17 12:00 99 07/13/17 12:00 97.9 103 25 135/80 100 Mechanical Ventilator 30 07/13/17 12:00 30 07/13/17 11:39 92 25 100 Mechanical Ventilator 30 07/13/17 11:29 91 24 30 Height (Feet): 6 Height (Inches): 0.00 Weight (Pounds): 164 Objective HEENT: No pale conjunctivae. No icterus. NECK: Trach in place. CHEST: Coarse breathing sounds. HEART: S1 and S2. ABDOMEN: Soft and nontender. Mildly distended. EXTREMITIES: No cyanosis. NEUROLOGIC: Awake and alert. GENITOURINARY: The patient has a condom catheter. Microbiology Date/Time Source Procedure Growth Status 07/11/17 18:10 Blood Blood Culture - Preliminary NO GROWTH AFTER 48 HOURS Resulted 07/11/17 17:50 Blood Blood Culture - Preliminary NO GROWTH AFTER 48 HOURS Resulted 07/11/17 22:15 Nasal Nares MRSA Culture - Final NO METHICILLIN RESISTANT STAPH AUREUS... Complete 07/11/17 18:20 Nasal Nares Influenza Types A,B Antigen (JACINTA) - Final Complete 07/12/17 18:30 Indwelling Cath Urine Culture - Preliminary NO GROWTH Resulted 07/11/17 18:53 Urine,Clean Catch Urine Culture - Preliminary Proteus Mirabilis Resulted 07/11/17 22:15 Rectum VRE Culture - Final Enterococcus Faecalis - Vre Complete Laboratory Tests Test 07/14/17 04:20 White Blood Count 12.5 K/UL (4.8-10.8) H Red Blood Count 3.30 M/UL (4.70-6.10) L Hemoglobin 9.7 G/DL (14.2-18.0) L Hematocrit 30.3 % (42.0-52.0) L Mean Corpuscular Volume 92 FL (80-99) Mean Corpuscular Hemoglobin 29.5 PG (27.0-31.0) Mean Corpuscular Hemoglobin Concent 32.1 G/DL (32.0-36.0) Red Cell Distribution Width 12.8 % (11.6-14.8) Platelet Count 411 K/UL (150-450) Mean Platelet Volume 6.1 FL (6.5-10.1) L Neutrophils (%) (Auto) 84.3 % (45.0-75.0) H Lymphocytes (%) (Auto) 8.2 % (20.0-45.0) L Monocytes (%) (Auto) 7.0 % (1.0-10.0) Eosinophils (%) (Auto) 0.0 % (0.0-3.0) Basophils (%) (Auto) 0.5 % (0.0-2.0) Sodium Level 140 MMOL/L (136-145) Potassium Level 4.0 MMOL/L (3.5-5.1) Chloride Level 104 MMOL/L (98-107) Carbon Dioxide Level 29 MMOL/L (21-32) Anion Gap 7 mmol/L (5-15) Blood Urea Nitrogen 26 mg/dL (7-18) H Creatinine 1.0 MG/DL (0.55-1.30) Estimat Glomerular Filtration Rate > 60 mL/min (>60) Glucose Level 124 MG/DL (74-106) H Calcium Level 8.5 MG/DL (8.5-10.1) Current Medications Medications (Trade) Dose Ordered Sig/Shraddha Route PRN Reason Start Time Stop Time Status Last Admin Dose Admin Acetaminophen (Tylenol) 650 mg Q4H PRN ORAL FEVER 07/11/17 23:00 08/10/17 22:59 Albuterol/ Ipratropium (Albuterol/ Ipratropium) 3 ml Q4H PRN HHN Shortness of Breath 07/12/17 04:30 07/17/17 04:29 07/14/17 04:50 Amlodipine Besylate (Norvasc) 5 mg DAILY ORAL 07/12/17 09:00 08/11/17 08:59 07/14/17 08:13 Dextrose (Dextrose 50%) STAT PRN IV Hypoglycemia 07/11/17 23:00 08/10/17 22:59 Heparin Sodium (Porcine) (Heparin 5000 units/ml) 5,000 units EVERY 12 HOURS SUBQ 07/12/17 09:00 08/11/17 08:59 07/14/17 08:14 Levofloxacin 100 ml @ 100 mls/hr Q24H IVPB 07/12/17 18:30 07/19/17 18:29 07/13/17 18:27 Lorazepam (Ativan 2mg/ml 1ml) 2 mg EVERY 2 HOURS PRN IV For Anxiety 07/11/17 23:00 07/18/17 22:59 Methylprednisolone Sodium Succinate (Solu-MEDROL) 40 mg Q8HR IVP 07/13/17 21:00 08/12/17 20:59 07/14/17 05:40 Morphine Sulfate (Morphine Sulfate) 4 mg EVERY 4 HOURS PRN IVP Severe Pain (Pain Scale 7-10) 07/11/17 23:00 07/18/17 22:59 Ondansetron HCl (Zofran) 4 mg Q6H PRN IVP Nausea & Vomiting 07/11/17 23:00 08/10/17 22:59 Pantoprazole (Protonix) 40 mg DAILY IV 07/12/17 09:00 08/11/17 08:59 07/14/17 08:13 Piperacillin Sod/ Tazobactam Sod 3.375 gm/Sodium Chloride 110 ml @ 27.5 mls/hr Q8H IVPB 07/12/17 19:30 07/19/17 19:29 07/14/17 03:44 Polyethylene Glycol (Miralax) 17 gm DAILYPRN PRN ORAL Constipation 07/11/17 23:00 08/10/17 22:59 Vancomycin/Sodium Chloride 250 ml @ 166.667 mls/hr Q12H IVPB 07/14/17 08:00 07/19/17 07:59 07/14/17 08:13 Tianna Jolley M.D. Jul 14, 2017 10:32
--- NOTE | 2017-07-14 11:58 | Pulmonology Progress Note ---
Assessment/Plan Problems: (1) Acute and chronic respiratory failure (2) Emphysema lung (3) COPD exacerbation Respiratory: monitor respiratory rate, adjust FIO2 Cardiac: continue pressors, continue to monitor HR/BP Renal: F/U I&O, keep IV fluid Infectious Disease: check cultures Gastrointestinal: continue feedings/current rate, hold feedings Endocrine: monitor blood sugar, check HgA1C, continue sliding scale insulin Hematologic: monitor H/H, transfuse if hgb<8.5 Neurologic: PRN Ativan, keep patient comfortable Affect: PRN ativan Prophylaxis: Protonix Notes Reviewed: manager mba, cardio, renal 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, consultants, shoe caser Subjective ROS Limited/Unobtainable: No Constitutional: Reports: no symptoms HEENT: Repors: no symptoms Respiratory: Reports: no symptoms Allergies: Coded Allergies: No Known Allergies (Unverified , 06/17/16) Objective Last 24 Hour Vital Signs Date Time Temp Pulse Resp B/P (MAP) Pulse Ox O2 Delivery O2 Flow Rate FiO2 07/14/17 10:40 71 23 30 07/14/17 10:36 93 27 100 Mechanical Ventilator 30 07/14/17 09:09 61 16 30 07/14/17 08:13 79 126/80 07/14/17 08:00 67 07/14/17 08:00 97.5 79 20 126/80 100 Mechanical Ventilator 30 07/14/17 08:00 30 07/14/17 07:05 74 24 30 07/14/17 04:52 107 21 97 Mechanical Ventilator 30 07/14/17 04:48 107 21 30 07/14/17 04:00 30 07/14/17 04:00 81 07/14/17 04:00 97.6 70 20 118/70 100 Mechanical Ventilator 30 07/14/17 02:37 94 26 30 07/14/17 00:56 96 27 30 07/14/17 00:00 97.5 82 22 122/78 100 Mechanical Ventilator 30 07/14/17 00:00 30 07/14/17 00:00 86 07/13/17 23:12 109 26 30 07/13/17 20:00 30 07/13/17 20:00 73 07/13/17 19:44 97.8 92 27 122/79 99 Mechanical Ventilator 30 07/13/17 19:20 97 28 30 07/13/17 17:28 98 23 100 Mechanical Ventilator 40 07/13/17 17:28 93 26 30 07/13/17 17:21 98 23 100 Mechanical Ventilator 30 07/13/17 16:00 30 07/13/17 16:00 98.3 89 27 123/75 99 Mechanical Ventilator 30 07/13/17 16:00 101 07/13/17 14:58 93 27 30 07/13/17 13:29 102 28 30 07/13/17 12:00 99 07/13/17 12:00 97.9 103 25 135/80 100 Mechanical Ventilator 30 07/13/17 12:00 30 Intake and Output 07/13/17 07/14/17 19:00 07:00 Intake Total 693.400 ml 192.5 ml Output Total 1400 ml 800 ml Balance -706.600 ml -607.5 ml Intake Oral 200 ml IV Total 493.400 ml 192.5 ml Output Urine Total 1400 ml 800 ml General Appearance: WD/WN HEENT: normocephalic, atraumatic Respiratory/Chest: chest wall non-tender, lungs clear Cardiovascular: normal peripheral pulses, normal rate Abdomen: normal bowel sounds, no organomegaly Extremities: no cyanosis Skin: no rash Neurologic/Psychiatric: 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 Complete 07/11/17 18:20 Nasal Nares Influenza Types A,B Antigen (JACINTA) - Final Complete 07/12/17 18:30 Indwelling Cath Urine Culture - Preliminary NO GROWTH Resulted 07/11/17 18:53 Urine,Clean Catch Urine Culture - Preliminary Proteus Mirabilis Resulted 07/11/17 22:15 Rectum VRE Culture - Final Enterococcus Faecalis - Vre Complete Laboratory Tests 07/14/17 04:20: White Blood Count 12.5H, Red Blood Count 3.30L, Hemoglobin 9.7L, Hematocrit 30.3L, Mean Corpuscular Volume 92, Mean Corpuscular Hemoglobin 29.5, Mean Corpuscular Hemoglobin Concent 32.1, Red Cell Distribution Width 12.8, Platelet Count 411, Mean Platelet Volume 6.1L, Neutrophils (%) (Auto) 84.3H, Lymphocytes (%) (Auto) 8.2L, Monocytes (%) (Auto) 7.0, Eosinophils (%) (Auto) 0.0, Basophils (%) (Auto) 0.5, Sodium Level 140, Potassium Level 4.0, Chloride Level 104, Carbon Dioxide Level 29, Anion Gap 7, Blood Urea Nitrogen 26H, Creatinine 1.0, Estimat Glomerular Filtration Rate > 60, Glucose Level 124H, Calcium Level 8.5 Current Medications Medications (Trade) Dose Ordered Sig/Shraddha Route PRN Reason Start Time Stop Time Status Last Admin Dose Admin Acetaminophen (Tylenol) 650 mg Q4H PRN ORAL FEVER 07/11/17 23:00 08/10/17 22:59 Albuterol/ Ipratropium (Albuterol/ Ipratropium) 3 ml Q4H PRN HHN Shortness of Breath 07/12/17 04:30 07/17/17 04:29 07/14/17 10:36 Amlodipine Besylate (Norvasc) 5 mg DAILY ORAL 07/12/17 09:00 08/11/17 08:59 07/14/17 08:13 Dextrose (Dextrose 50%) STAT PRN IV Hypoglycemia 07/11/17 23:00 08/10/17 22:59 Heparin Sodium (Porcine) (Heparin 5000 units/ml) 5,000 units EVERY 12 HOURS SUBQ 07/12/17 09:00 08/11/17 08:59 07/14/17 08:14 Levofloxacin 100 ml @ 100 mls/hr Q24H IVPB 07/12/17 18:30 07/19/17 18:29 07/13/17 18:27 Lorazepam (Ativan 2mg/ml 1ml) 2 mg EVERY 2 HOURS PRN IV For Anxiety 07/11/17 23:00 07/18/17 22:59 Methylprednisolone Sodium Succinate (Solu-MEDROL) 40 mg Q8HR IVP 07/13/17 21:00 08/12/17 20:59 07/14/17 05:40 Morphine Sulfate (Morphine Sulfate) 4 mg EVERY 4 HOURS PRN IVP Severe Pain (Pain Scale 7-10) 07/11/17 23:00 07/18/17 22:59 Ondansetron HCl (Zofran) 4 mg Q6H PRN IVP Nausea & Vomiting 07/11/17 23:00 08/10/17 22:59 Pantoprazole (Protonix) 40 mg ACBREAKFAST ORAL 07/15/17 06:30 08/14/17 06:29 Piperacillin Sod/ Tazobactam Sod 3.375 gm/Sodium Chloride 110 ml @ 27.5 mls/hr Q8H IVPB 07/12/17 19:30 07/19/17 19:29 07/14/17 11:01 Polyethylene Glycol (Miralax) 17 gm DAILYPRN PRN ORAL Constipation 07/11/17 23:00 08/10/17 22:59 Vancomycin/Sodium Chloride 250 ml @ 166.667 mls/hr Q12H IVPB 07/14/17 08:00 07/19/17 07:59 07/14/17 08:13 REN WRIGHT Jul 14, 2017 11:58
[2017-07-14 12:00] VITALS: BP 135/83
[2017-07-14 16:00] VITALS: BP 119/92
[2017-07-14 20:00] VITALS: BP 148/93
--- NOTE | 2017-07-14 21:47 | Diagnostic Imaging Report ---
Indication:Abdominal pain Technique: Grayscale and duplex Doppler imaging of the abdomen performed. Comparison: None Findings: The liver, demonstrated part of the pancreas, aorta and IVC, both kidneys, spleen appear unremarkable. Small gallbladder rounded nodules without shadowing are noted consistent with polyps. Aliasing artifact along the wall the gallbladder noted. Trace bilateral pleural effusions and trace pericardial effusion noted. There is no biliary ductal dilatation identified. Doppler evaluation of the main portal vein shows patency. There is no ascites. No hydronephrosis seen. CBD is less than 4 mm. Impression: Trace bilateral pleural effusions. Trace pericardial effusion Gallbladder polyps or cholesterolosis
--- NOTE | 2017-07-14 21:48 | Diagnostic Imaging Report ---
Indication: Dyspnea Comparison: 07/11/2017 A single view chest radiograph was obtained. Findings: Lungs are asymmetric with increased density in the right lung which may be due to underlying infiltrate or pleural disease. The finding is stable. Both lungs appear hyperexpanded. Tracheostomy is noted. Heart size is stable. IMPRESSION: No radiographic change appreciated. Infiltrate in the right lung not excluded
[2017-07-15] VITALS: BP 100/60
[2017-07-15] MEDS: Piperacillin/Tazobactam 3.375 GM in NS 110 ML IVPB SCH ×3 (02:45→18:44)
[2017-07-15 04:00] VITALS: BP 101/68
[2017-07-15] MEDS: Solu-MEDROL 40mg Inj IVP SCH ×3 (05:34→21:51)
[2017-07-15] MEDS: Albuterol/Ipratropium 3ml neb HHN PRN ×3 (07:02→18:55)
[2017-07-15 08:00] VITALS: BP 118/78
[2017-07-15] MEDS: Vancomycin 750mg/NS 250ml IVPB SCH (08:37)
[2017-07-15] MEDS: Heparin 5000 units/ml inj SUBQ SCH ×2 (08:37→20:33)
--- NOTE | 2017-07-15 10:42 | Pulmonology Progress Note ---
Assessment/Plan Problems: (1) Acute and chronic respiratory failure (2) Emphysema lung (3) COPD exacerbation (4) Nosocomial pneumonia (5) UTI (urinary tract infection) Respiratory: monitor respiratory rate, adjust FIO2, CXR Cardiac: continue pressors Renal: F/U I&O, keep IV fluid Infectious Disease: continue antibiotics Gastrointestinal: continue feedings/current rate Endocrine: monitor blood sugar, check TSH, continue sliding scale insulin Hematologic: transfuse if hgb<8.5 Neurologic: PRN Ativan, PRN Morphine, keep patient comfortable Prophylaxis: Protonix Time Spent (Minutes): 40 Notes Reviewed: solderer barrel ribs, renal 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, consultants, registered nurse hh case manager Subjective ROS Limited/Unobtainable: No Constitutional: Reports: no symptoms HEENT: Repors: no symptoms Respiratory: Reports: no symptoms Allergies: Coded Allergies: No Known Allergies (Unverified , 06/17/16) Objective Last 24 Hour Vital Signs Date Time Temp Pulse Resp B/P (MAP) Pulse Ox O2 Delivery O2 Flow Rate FiO2 07/15/17 09:04 68 18 30 07/15/17 08:37 87 118/78 07/15/17 08:00 88 07/15/17 08:00 98.1 87 22 118/78 100 Mechanical Ventilator 35 07/15/17 08:00 30 07/15/17 07:09 78 18 100 Mechanical Ventilator 30 07/15/17 07:02 80 18 99 Mechanical Ventilator 30 07/15/17 07:00 82 22 30 07/15/17 05:13 59 19 30 07/15/17 04:00 30 07/15/17 04:00 98.7 87 22 101/68 100 Mechanical Ventilator 35 07/15/17 04:00 52 07/15/17 03:08 59 18 30 07/15/17 01:07 57 16 30 07/15/17 00:00 58 07/15/17 00:00 98.6 52 26 100/60 95 Mechanical Ventilator 35 07/14/17 22:55 62 18 100 Mechanical Ventilator 30 07/14/17 22:45 74 18 100 Mechanical Ventilator 30 07/14/17 22:45 74 18 30 07/14/17 20:52 62 21 30 07/14/17 20:00 78 07/14/17 20:00 30 07/14/17 20:00 98.1 95 32 148/93 94 Mechanical Ventilator 30 07/14/17 19:09 81 31 30 07/14/17 16:51 67 25 100 Mechanical Ventilator 40 07/14/17 16:42 69 26 100 Mechanical Ventilator 30 07/14/17 16:41 64 21 30 07/14/17 16:00 97.5 75 19 119/92 100 Mechanical Ventilator 30 07/14/17 16:00 30 07/14/17 16:00 84 07/14/17 14:52 102 29 30 07/14/17 13:00 102 31 30 07/14/17 12:00 96 07/14/17 12:00 97.7 67 19 135/83 100 Mechanical Ventilator 30 07/14/17 12:00 30 Intake and Output 07/14/17 07/15/17 19:00 07:00 Intake Total 1000.0 ml 553.2 ml Output Total 650 ml 400 ml Balance 350.0 ml 153.2 ml Intake Oral 640 ml IV Total 360.0 ml 553.2 ml Output Urine Total 650 ml 400 ml # Voids 1 General Appearance: cachetic HEENT: normocephalic, atraumatic Respiratory/Chest: chest wall non-tender, lungs clear Cardiovascular: normal peripheral pulses, normal rate Abdomen: normal bowel sounds, soft, non tender Extremities: no cyanosis Neurologic/Psychiatric: medical 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 normal Lymphatic: no neck adenopathy Musculoskeletal: normal muscle bulk Microbiology Date/Time Source Procedure Growth Status 07/12/17 18:30 Indwelling Cath Urine Culture - Final Proteus Mirabilis Complete Laboratory Tests 07/15/17 07:10: Vancomycin Level Trough 12.3H Current Medications Medications (Trade) Dose Ordered Sig/Shraddha Route PRN Reason Start Time Stop Time Status Last Admin Dose Admin Acetaminophen (Tylenol) 650 mg Q4H PRN ORAL FEVER 07/11/17 23:00 08/10/17 22:59 Albuterol/ Ipratropium (Albuterol/ Ipratropium) 3 ml Q4H PRN HHN Shortness of Breath 07/12/17 04:30 07/17/17 04:29 07/15/17 07:02 Amlodipine Besylate (Norvasc) 5 mg DAILY ORAL 07/12/17 09:00 08/11/17 08:59 07/15/17 08:37 Dextrose (Dextrose 50%) STAT PRN IV Hypoglycemia 07/11/17 23:00 08/10/17 22:59 Heparin Sodium (Porcine) (Heparin 5000 units/ml) 5,000 units EVERY 12 HOURS SUBQ 07/12/17 09:00 08/11/17 08:59 07/15/17 08:37 Lorazepam (Ativan 2mg/ml 1ml) 2 mg EVERY 2 HOURS PRN IV For Anxiety 07/11/17 23:00 07/18/17 22:59 Methylprednisolone Sodium Succinate (Solu-MEDROL) 40 mg Q8HR IVP 07/13/17 21:00 08/12/17 20:59 07/15/17 05:34 Morphine Sulfate (Morphine Sulfate) 4 mg EVERY 4 HOURS PRN IVP Severe Pain (Pain Scale 7-10) 07/11/17 23:00 07/18/17 22:59 Ondansetron HCl (Zofran) 4 mg Q6H PRN IVP Nausea & Vomiting 07/11/17 23:00 08/10/17 22:59 Pantoprazole (Protonix) 40 mg ACBREAKFAST ORAL 07/15/17 06:30 08/14/17 06:29 07/15/17 05:33 Piperacillin Sod/ Tazobactam Sod 3.375 gm/Sodium Chloride 110 ml @ 27.5 mls/hr Q8H IVPB 07/12/17 19:30 07/19/17 19:29 07/15/17 02:45 Polyethylene Glycol (Miralax) 17 gm DAILYPRN PRN ORAL Constipation 07/11/17 23:00 08/10/17 22:59 Vancomycin HCl (Vanco rx to dose) 1 ea DAILY PRN MISC PER RX PROTOCOL 07/15/17 08:45 08/14/17 08:44 Vancomycin HCl 1 gm/Dextrose 275 ml @ 183.708 mls/hr Q12HR@0800,2000 IVPB 07/15/17 20:00 07/20/17 19:59 Vancomycin/Sodium Chloride 250 ml @ 166.667 mls/hr Q12H IVPB 07/14/17 08:00 07/15/17 11:00 07/15/17 08:37 REN WRIGHT Jul 15, 2017 10:42
--- NOTE | 2017-07-15 11:50 | Infectious Diseases Prog Note ---
Assessment/Plan Assessment/Plan ASSESSMENT: The patient is a 66-year-old male with: 1. Fever, improving 2. Possible ventilator-associated pneumonia. -CXR: Lungs are asymmetric with increased density in the right lung which may be due to underlying infiltrate or pleural disease. The finding is stable. Both lungs appear hyperexpanded. -sp cx +4 GNB #1, +4 GNB #2 (ID and sensi pending) 3. Rapid influenza test negative. 4. Leukocytosis, mild, stable (on steroids) 5. Rule out bacteremia. -Bcx NTD 6. Rule out biliary disease. -Abd US Trace bilateral pleural effusions. Trace pericardial effusion. Gallbladder polyps or cholesterolosis 7. Assymptomatic bacteriuria -u/a neg; ucx >100k Proteus ( S Zosyn, levaquin, amikacin) 8. VRE colonized PLAN: 1. D/c IV vancomycin and continue Zosyn #5/10-14 pending ID and sensi GNB sp cx -07/12 SP Tamiflu #2 -07/11 Azithromycin x1 2. Monitor CBC. 3. Monitor BMP. 4. Monitor cultures (blood,sputum). 5. Monitor chest x-ray. 6. f/u Legionella antigen 7. Based on the patient's clinical course and laboratories, we will do further recommendations. Thank you, Dr. Andrade, for allowing me to participate in the care of this patient. I will follow the patient with you during this hospitalization. Subjective Allergies: Coded Allergies: No Known Allergies (Unverified , 06/17/16) Subjective afebrile in >48hrs stable leukocytosis awaiting CXR report/image and sp cx results Objective Vital Signs Last 24 Hour Vital Signs Date Time Temp Pulse Resp B/P (MAP) Pulse Ox O2 Delivery O2 Flow Rate FiO2 07/15/17 10:38 72 18 30 07/15/17 09:04 68 18 30 07/15/17 08:37 87 118/78 07/15/17 08:00 88 07/15/17 08:00 98.1 87 22 118/78 100 Mechanical Ventilator 35 07/15/17 08:00 30 07/15/17 07:09 78 18 100 Mechanical Ventilator 30 07/15/17 07:02 80 18 99 Mechanical Ventilator 30 07/15/17 07:00 82 22 30 07/15/17 05:13 59 19 30 07/15/17 04:00 30 07/15/17 04:00 98.7 87 22 101/68 100 Mechanical Ventilator 35 07/15/17 04:00 52 07/15/17 03:08 59 18 30 07/15/17 01:07 57 16 30 07/15/17 00:00 58 07/15/17 00:00 98.6 52 26 100/60 95 Mechanical Ventilator 35 07/14/17 22:55 62 18 100 Mechanical Ventilator 30 07/14/17 22:45 74 18 100 Mechanical Ventilator 30 07/14/17 22:45 74 18 30 07/14/17 20:52 62 21 30 07/14/17 20:00 78 07/14/17 20:00 30 07/14/17 20:00 98.1 95 32 148/93 94 Mechanical Ventilator 30 07/14/17 19:09 81 31 30 07/14/17 16:51 67 25 100 Mechanical Ventilator 40 07/14/17 16:42 69 26 100 Mechanical Ventilator 30 07/14/17 16:41 64 21 30 07/14/17 16:00 97.5 75 19 119/92 100 Mechanical Ventilator 30 07/14/17 16:00 30 07/14/17 16:00 84 07/14/17 14:52 102 29 30 07/14/17 13:00 102 31 30 07/14/17 12:00 96 07/14/17 12:00 97.7 67 19 135/83 100 Mechanical Ventilator 30 07/14/17 12:00 30 Height (Feet): 6 Height (Inches): 0.00 Weight (Pounds): 164 Objective HEENT: No pale conjunctivae. No icterus. NECK: Trach in place. CHEST: Coarse breathing sounds. HEART: S1 and S2. ABDOMEN: Soft and nontender. Mildly distended. EXTREMITIES: No cyanosis. NEUROLOGIC: Awake and alert. GENITOURINARY: The patient has a condom catheter. Microbiology Date/Time Source Procedure Growth Status 07/12/17 18:30 Indwelling Cath Urine Culture - Final Proteus Mirabilis Complete Laboratory Tests Test 07/15/17 07:10 Vancomycin Level Trough 12.3 ug/mL (5.0-12.0) H Current Medications Medications (Trade) Dose Ordered Sig/Shraddha Route PRN Reason Start Time Stop Time Status Last Admin Dose Admin Acetaminophen (Tylenol) 650 mg Q4H PRN ORAL FEVER 07/11/17 23:00 08/10/17 22:59 Albuterol/ Ipratropium (Albuterol/ Ipratropium) 3 ml Q4H PRN HHN Shortness of Breath 07/12/17 04:30 07/17/17 04:29 07/15/17 07:02 Amlodipine Besylate (Norvasc) 5 mg DAILY ORAL 07/12/17 09:00 08/11/17 08:59 07/15/17 08:37 Dextrose (Dextrose 50%) STAT PRN IV Hypoglycemia 07/11/17 23:00 08/10/17 22:59 Heparin Sodium (Porcine) (Heparin 5000 units/ml) 5,000 units EVERY 12 HOURS SUBQ 07/12/17 09:00 08/11/17 08:59 07/15/17 08:37 Lorazepam (Ativan 2mg/ml 1ml) 2 mg EVERY 2 HOURS PRN IV For Anxiety 07/11/17 23:00 07/18/17 22:59 Methylprednisolone Sodium Succinate (Solu-MEDROL) 40 mg Q8HR IVP 07/13/17 21:00 08/12/17 20:59 07/15/17 05:34 Morphine Sulfate (Morphine Sulfate) 4 mg EVERY 4 HOURS PRN IVP Severe Pain (Pain Scale 7-10) 07/11/17 23:00 07/18/17 22:59 Ondansetron HCl (Zofran) 4 mg Q6H PRN IVP Nausea & Vomiting 07/11/17 23:00 08/10/17 22:59 Pantoprazole (Protonix) 40 mg ACBREAKFAST ORAL 07/15/17 06:30 08/14/17 06:29 07/15/17 05:33 Piperacillin Sod/ Tazobactam Sod 3.375 gm/Sodium Chloride 110 ml @ 27.5 mls/hr Q8H IVPB 07/12/17 19:30 07/19/17 19:29 07/15/17 11:38 Polyethylene Glycol (Miralax) 17 gm DAILYPRN PRN ORAL Constipation 07/11/17 23:00 08/10/17 22:59 Vancomycin HCl (Vanco rx to dose) 1 ea DAILY PRN MISC PER RX PROTOCOL 07/15/17 08:45 08/14/17 08:44 Vancomycin HCl 1 gm/Dextrose 275 ml @ 183.708 mls/hr Q12HR@0800,1999 IVPB 07/15/17 20:00 07/20/17 19:59 Tianna Jolley M.D. Jul 15, 2017 11:50
[2017-07-15 12:00] VITALS: BP 118/72
[2017-07-15 16:00] VITALS: BP 137/84
[2017-07-15 20:00] VITALS: BP 150/95
[2017-07-15] MEDS ORDERED: Vancomycin 1gm/D5W 275ml IVPB SCH ×2 (20:00)
[2017-07-16] VITALS: BP 126/86
[2017-07-16] MEDS: Piperacillin/Tazobactam 3.375 GM in NS 110 ML IVPB SCH ×2 (03:51→10:30)
[2017-07-16 04:00] VITALS: BP 120/80
[2017-07-16] MEDS: Solu-MEDROL 40mg Inj IVP SCH ×2 (06:06→13:32)
[2017-07-16 06:28] LABS: BASOPHILS % (AUTO) 0.6 % (0.0-2.0); HEMATOCRIT 30.7 % (42.0-52.0); HEMOGLOBIN 10.1 G/DL (14.2-18.0); LYMPHOCYTES % (AUTO) 10.9 % (20.0-45.0); MEAN CORPUSCULAR VOLUME 91 FL (80-99); NEUTROPHILS % (AUTO) 83.4 % (45.0-75.0); PLATELET COUNT 437 K/UL (150-450); RED BLOOD COUNT 3.36 M/UL (4.70-6.10); RED CELL DISTRIBUTION WIDTH 13.1 % (11.6-14.8); WHITE BLOOD COUNT 14.3 K/UL (4.8-10.8)
[2017-07-16 06:40] LABS: ALANINE AMINOTRANSFERASE 12 U/L (12-78); ALBUMIN 2.3 G/DL (3.4-5.0); ALBUMIN/GLOBULIN RATIO 0.5 (1.0-2.7); ALKALINE PHOSPHATASE 122 U/L (46-116); ANION GAP 5 mmol/L (5-15); ASPARTATE AMINO TRANSFERASE 11 U/L (15-37); BILIRUBIN,TOTAL 0.3 MG/DL (0.2-1.0); BLOOD UREA NITROGEN 18 mg/dL (7-18); CALCIUM 8.5 MG/DL (8.5-10.1); CARBON DIOXIDE 32 MMOL/L (21-32); CHLORIDE 102 MMOL/L (98-107); CREATININE 1.1 MG/DL (0.55-1.30); PHOSPHORUS 2.6 MG/DL (2.5-4.9); POTASSIUM 3.9 MMOL/L (3.5-5.1); SODIUM 139 MMOL/L (136-145)
[2017-07-16 08:00] VITALS: BP 139/62
[2017-07-16] MEDS: Albuterol/Ipratropium 3ml neb HHN PRN ×2 (09:11→14:03)
[2017-07-16] MEDS: Heparin 5000 units/ml inj SUBQ SCH (09:21)
--- NOTE | 2017-07-16 11:28 | Infectious Diseases Prog Note ---
Assessment/Plan Assessment/Plan ASSESSMENT: The patient is a 66-year-old male with: 1. Fever, improving 2. Possible ventilator-associated pneumonia. -CXR: Lungs are asymmetric with increased density in the right lung which may be due to underlying infiltrate or pleural disease. The finding is stable. Both lungs appear hyperexpanded. -sp cx +4 GNB #P mirabilis (S Ancef, Ceftriaxone, Zosyn, Ertapenem; R Imipenem, Cipro/Levo), +4 Serratia marcecens (S Ceftriaxone, Ertapenem) 3. Rapid influenza test negative. 4. Leukocytosis, increasing(on steroids) 5. Rule out bacteremia. -Bcx NTD 6. Rule out biliary disease. -Abd US Trace bilateral pleural effusions. Trace pericardial effusion. Gallbladder polyps or cholesterolosis 7. Assymptomatic bacteriuria -u/a neg; ucx >100k Proteus ( S Zosyn, levaquin, amikacin) 8. VRE colonized PLAN: 1. Continue Zosyn #/-14 for Serratia and Proteus PNA; will monitor for worsening, if so will change to Ertapenem given potential for ESBL inducibility -07/15 SP IV vanco #5 -1/6 SP Tamiflu #2 -/5 Azithromycin x1 2. Monitor CBC, Trend WBC 3. Monitor BMP. 4. Monitor cultures (blood,sputum). 5. Monitor chest x-ray. 6. f/u Legionella antigen 7. Based on the patient's clinical course and laboratories, we will do further recommendations. Thank you, Dr. Andrade, for allowing me to participate in the care of this patient. I will follow the patient with you during this hospitalization. Subjective Allergies: Coded Allergies: No Known Allergies (Unverified , 06/17/16) Subjective afebrile mild increase wbc (on high dose steroids) Objective Vital Signs Last 24 Hour Vital Signs Date Time Temp Pulse Resp B/P (MAP) Pulse Ox O2 Delivery O2 Flow Rate FiO2 07/16/17 09:28 60 20 100 Mechanical Ventilator 30 07/16/17 09:19 69 139/62 07/16/17 09:12 60 20 100 Mechanical Ventilator 30 07/16/17 09:10 60 20 30 07/16/17 08:32 60 07/16/17 08:00 96.8 69 17 139/62 100 Mechanical Ventilator 35 07/16/17 08:00 30 07/16/17 06:45 70 20 30 07/16/17 05:02 84 23 30 07/16/17 04:00 54 07/16/17 04:00 97.2 82 23 120/80 100 Mechanical Ventilator 35 07/16/17 04:00 30 07/16/17 02:14 63 18 30 07/16/17 00:00 97.2 60 30 126/86 99 Mechanical Ventilator 35 07/16/17 00:00 61 07/16/17 00:00 30 07/15/17 22:58 84 22 30 07/15/17 21:21 89 20 30 07/15/17 20:00 97.5 90 30 150/95 99 Mechanical Ventilator 35 07/15/17 20:00 68 07/15/17 20:00 30 07/15/17 18:58 89 22 100 Mechanical Ventilator 30 07/15/17 18:56 79 22 30 07/15/17 18:52 76 22 98 Mechanical Ventilator 30 07/15/17 16:48 70 20 30 07/15/17 16:00 98.5 59 18 137/84 100 Mechanical Ventilator 35 07/15/17 16:00 30 07/15/17 16:00 54 07/15/17 15:25 75 20 30 07/15/17 13:12 83 18 100 Mechanical Ventilator 30 07/15/17 13:05 83 25 30 07/15/17 13:03 82 18 99 Mechanical Ventilator 30 07/15/17 12:00 98.3 83 22 118/72 100 Mechanical Ventilator 35 07/15/17 12:00 30 07/15/17 12:00 75 Height (Feet): 6 Height (Inches): 0.00 Weight (Pounds): 169 Objective HEENT: No pale conjunctivae. No icterus. NECK: Trach in place. CHEST: Coarse breathing sounds. HEART: S1 and S2. ABDOMEN: Soft and nontender. Mildly distended. EXTREMITIES: No cyanosis. NEUROLOGIC: Awake and alert. GENITOURINARY: The patient has a condom catheter. Laboratory Tests Test 07/16/17 04:20 White Blood Count 14.3 K/UL (4.8-10.8) H Red Blood Count 3.36 M/UL (4.70-6.10) L Hemoglobin 10.1 G/DL (14.2-18.0) L Hematocrit 30.7 % (42.0-52.0) L Mean Corpuscular Volume 91 FL (80-99) Mean Corpuscular Hemoglobin 29.9 PG (27.0-31.0) Mean Corpuscular Hemoglobin Concent 32.7 G/DL (32.0-36.0) Red Cell Distribution Width 13.1 % (11.6-14.8) Platelet Count 437 K/UL (150-450) Mean Platelet Volume 5.8 FL (6.5-10.1) L Neutrophils (%) (Auto) 83.4 % (45.0-75.0) H Lymphocytes (%) (Auto) 10.9 % (20.0-45.0) L Monocytes (%) (Auto) 5.0 % (1.0-10.0) Eosinophils (%) (Auto) 0.0 % (0.0-3.0) Basophils (%) (Auto) 0.6 % (0.0-2.0) Sodium Level 139 MMOL/L (136-145) Potassium Level 3.9 MMOL/L (3.5-5.1) Chloride Level 102 MMOL/L (98-107) Carbon Dioxide Level 32 MMOL/L (21-32) Anion Gap 5 mmol/L (5-15) Blood Urea Nitrogen 18 mg/dL (7-18) Creatinine 1.1 MG/DL (0.55-1.30) Estimat Glomerular Filtration Rate > 60 mL/min (>60) Glucose Level 208 MG/DL (74-106) H Calcium Level 8.5 MG/DL (8.5-10.1) Phosphorus Level 2.6 MG/DL (2.5-4.9) Magnesium Level 2.3 MG/DL (1.8-2.4) Total Bilirubin 0.3 MG/DL (0.2-1.0) Aspartate Amino Transf (AST/SGOT) 11 U/L (15-37) L Alanine Aminotransferase (ALT/SGPT) 12 U/L (12-78) Alkaline Phosphatase 122 U/L (46-116) H Total Protein 7.2 G/DL (6.4-8.2) Albumin 2.3 G/DL (3.4-5.0) L Globulin 4.9 g/dL Albumin/Globulin Ratio 0.5 (1.0-2.7) L Current Medications Medications (Trade) Dose Ordered Sig/Shraddha Route PRN Reason Start Time Stop Time Status Last Admin Dose Admin Acetaminophen (Tylenol) 650 mg Q4H PRN ORAL FEVER 07/11/17 23:00 08/10/17 22:59 Albuterol/ Ipratropium (Albuterol/ Ipratropium) 3 ml Q4H PRN HHN Shortness of Breath 07/12/17 04:30 07/17/17 04:29 07/16/17 09:11 Amlodipine Besylate (Norvasc) 5 mg DAILY ORAL 07/12/17 09:00 08/11/17 08:59 07/16/17 09:19 Dextrose (Dextrose 50%) STAT PRN IV Hypoglycemia 07/11/17 23:00 08/10/17 22:59 Heparin Sodium (Porcine) (Heparin 5000 units/ml) 5,000 units EVERY 12 HOURS SUBQ 07/12/17 09:00 08/11/17 08:59 07/16/17 09:21 Lorazepam (Ativan 2mg/ml 1ml) 2 mg EVERY 2 HOURS PRN IV For Anxiety 07/11/17 23:00 07/18/17 22:59 Methylprednisolone Sodium Succinate (Solu-MEDROL) 40 mg Q8HR IVP 07/13/17 21:00 08/12/17 20:59 07/16/17 06:06 Morphine Sulfate (Morphine Sulfate) 4 mg EVERY 4 HOURS PRN IVP Severe Pain (Pain Scale 7-10) 07/11/17 23:00 07/18/17 22:59 Ondansetron HCl (Zofran) 4 mg Q6H PRN IVP Nausea & Vomiting 07/11/17 23:00 08/10/17 22:59 Pantoprazole (Protonix) 40 mg ACBREAKFAST ORAL 07/15/17 06:30 08/14/17 06:29 07/16/17 06:07 Piperacillin Sod/ Tazobactam Sod 3.375 gm/Sodium Chloride 110 ml @ 27.5 mls/hr Q8H IVPB 07/12/17 19:30 07/19/17 19:29 07/16/17 10:30 Polyethylene Glycol (Miralax) 17 gm DAILYPRN PRN ORAL Constipation 07/11/17 23:00 08/10/17 22:59 Tianna Jolley M.D. Jul 16, 2017 11:28
[2017-07-16] MEDS ORDERED: ZOSYN 3.373.375 GM/1 IVPB (11:30)
--- NOTE | 2017-07-16 11:32 | Pulmonology Progress Note ---
Assessment/Plan Problems: (1) Acute and chronic respiratory failure (2) Emphysema lung (3) COPD exacerbation (4) Nosocomial pneumonia (5) UTI (urinary tract infection) Respiratory: monitor respiratory rate Cardiac: start pressors, stop pressors Renal: F/U I&O, keep IV fluid Infectious Disease: check cultures, continue antibiotics Gastrointestinal: continue feedings/current rate Endocrine: monitor blood sugar, check HgA1C Neurologic: PRN Morphine Affect: PRN ativan Prophylaxis: Protonix Notes Reviewed: cardio 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 Subjective ROS Limited/Unobtainable: No Constitutional: Reports: no symptoms Respiratory: Reports: no symptoms Allergies: Coded Allergies: No Known Allergies (Unverified , 06/17/16) Objective Last 24 Hour Vital Signs Date Time Temp Pulse Resp B/P (MAP) Pulse Ox O2 Delivery O2 Flow Rate FiO2 07/16/17 10:55 68 20 30 07/16/17 09:28 60 20 100 Mechanical Ventilator 30 07/16/17 09:19 69 139/62 07/16/17 09:12 60 20 100 Mechanical Ventilator 30 07/16/17 09:10 60 20 30 07/16/17 08:32 60 07/16/17 08:00 96.8 69 17 139/62 100 Mechanical Ventilator 35 07/16/17 08:00 30 07/16/17 06:45 70 20 30 07/16/17 05:02 84 23 30 07/16/17 04:00 54 07/16/17 04:00 97.2 82 23 120/80 100 Mechanical Ventilator 35 07/16/17 04:00 30 07/16/17 02:14 63 18 30 07/16/17 00:00 97.2 60 30 126/86 99 Mechanical Ventilator 35 07/16/17 00:00 61 07/16/17 00:00 30 07/15/17 22:58 84 22 30 07/15/17 21:21 89 20 30 07/15/17 20:00 97.5 90 30 150/95 99 Mechanical Ventilator 35 07/15/17 20:00 68 07/15/17 20:00 30 07/15/17 18:58 89 22 100 Mechanical Ventilator 30 07/15/17 18:56 79 22 30 07/15/17 18:52 76 22 98 Mechanical Ventilator 30 07/15/17 16:48 70 20 30 07/15/17 16:00 98.5 59 18 137/84 100 Mechanical Ventilator 35 07/15/17 16:00 30 07/15/17 16:00 54 07/15/17 15:25 75 20 30 07/15/17 13:12 83 18 100 Mechanical Ventilator 30 07/15/17 13:05 83 25 30 07/15/17 13:03 82 18 99 Mechanical Ventilator 30 07/15/17 12:00 98.3 83 22 118/72 100 Mechanical Ventilator 35 07/15/17 12:00 30 07/15/17 12:00 75 Intake and Output 07/15/17 07/16/17 19:00 07:00 Intake Total 1160.000 ml 400 ml Output Total 850 ml 600 ml Balance 310.000 ml -200 ml Intake Oral 800 ml IV Total 360.000 ml Other 400 ml Output Urine Total 850 ml 600 ml # Bowel Movements 2 General Appearance: WD/WN HEENT: normocephalic, atraumatic Respiratory/Chest: chest wall non-tender, normal breath sounds Cardiovascular: normal peripheral pulses Abdomen: normal bowel sounds Extremities: no cyanosis, no clubbing Neurologic/Psychiatric: mri supervisor II-XII grossly normal Lymphatic: no neck adenopathy, no groin adenopathy Musculoskeletal: normal muscle bulk Laboratory Tests 07/16/17 04:20: White Blood Count 14.3H, Red Blood Count 3.36L, Hemoglobin 10.1L, Hematocrit 30.7L, Mean Corpuscular Volume 91, Mean Corpuscular Hemoglobin 29.9, Mean Corpuscular Hemoglobin Concent 32.7, Red Cell Distribution Width 13.1, Platelet Count 437, Mean Platelet Volume 5.8L, Neutrophils (%) (Auto) 83.4H, Lymphocytes (%) (Auto) 10.9L, Monocytes (%) (Auto) 5.0, Eosinophils (%) (Auto) 0.0, Basophils (%) (Auto) 0.6, Sodium Level 139, Potassium Level 3.9, Chloride Level 102, Carbon Dioxide Level 32, Anion Gap 5, Blood Urea Nitrogen 18, Creatinine 1.1, Estimat Glomerular Filtration Rate > 60, Glucose Level 208H, Calcium Level 8.5, Phosphorus Level 2.6, Magnesium Level 2.3, Total Bilirubin 0.3, Aspartate Amino Transf (AST/SGOT) 11L, Alanine Aminotransferase (ALT/SGPT) 12, Alkaline Phosphatase 122H, Total Protein 7.2, Albumin 2.3L, Globulin 4.9, Albumin/ Globulin Ratio 0.5L Current Medications Medications (Trade) Dose Ordered Sig/Shraddha Route PRN Reason Start Time Stop Time Status Last Admin Dose Admin Acetaminophen (Tylenol) 650 mg Q4H PRN ORAL FEVER 07/11/17 23:00 08/10/17 22:59 Albuterol/ Ipratropium (Albuterol/ Ipratropium) 3 ml Q4H PRN HHN Shortness of Breath 07/12/17 04:30 07/17/17 04:29 07/16/17 09:11 Amlodipine Besylate (Norvasc) 5 mg DAILY ORAL 07/12/17 09:00 08/11/17 08:59 07/16/17 09:19 Dextrose (Dextrose 50%) STAT PRN IV Hypoglycemia 07/11/17 23:00 08/10/17 22:59 Heparin Sodium (Porcine) (Heparin 5000 units/ml) 5,000 units EVERY 12 HOURS SUBQ 07/12/17 09:00 08/11/17 08:59 07/16/17 09:21 Lorazepam (Ativan 2mg/ml 1ml) 2 mg EVERY 2 HOURS PRN IV For Anxiety 07/11/17 23:00 07/18/17 22:59 Methylprednisolone Sodium Succinate (Solu-MEDROL) 40 mg Q8HR IVP 07/13/17 21:00 08/12/17 20:59 07/16/17 06:06 Morphine Sulfate (Morphine Sulfate) 4 mg EVERY 4 HOURS PRN IVP Severe Pain (Pain Scale 7-10) 07/11/17 23:00 07/18/17 22:59 Ondansetron HCl (Zofran) 4 mg Q6H PRN IVP Nausea & Vomiting 07/11/17 23:00 08/10/17 22:59 Pantoprazole (Protonix) 40 mg ACBREAKFAST ORAL 07/15/17 06:30 08/14/17 06:29 07/16/17 06:07 Piperacillin Sod/ Tazobactam Sod 3.375 gm/Sodium Chloride 110 ml @ 27.5 mls/hr Q8H IVPB 07/12/17 19:30 07/19/17 19:29 07/16/17 10:30 Polyethylene Glycol (Miralax) 17 gm DAILYPRN PRN ORAL Constipation 07/11/17 23:00 08/10/17 22:59 REN WRIGHT Jul 16, 2017 11:32
[2017-07-16 12:00] VITALS: BP 148/84
[2017-07-16] MEDS ORDERED: Tubing IV Secondary IV ONE (15:38)
[2017-07-16] MEDS ORDERED: NS 275ml ONE (15:38)
[2017-07-16] MEDS ORDERED: NS 500ML ONE (15:38)
--- NOTE | 2017-07-17 16:05 | Discharge Summary ---
Discharge Summary Hospital Course Date of Admission Jul 11, 2017 at 20:02 Date of Discharge Jul 16, 2017 at 15:39 Admitting Diagnosis respiratory distress HPI Angel Dixon Jr is a 66 year old male who was admitted on Jul 11, 2017 at 20: 02 for Respiratory Distress Hospital Course [id number] Discharge Discharge Disposition Patient was discharged to [facility] Diagnoses: Lisa Morales NP Jul 17, 2017 16:05
--- NOTE | 2017-07-17 20:01 | Discharge Summary 2 SIG ---
DATE OF ADMISSION: 07/11/2017 DATE OF DISCHARGE: 07/16/2017 HOSPITAL COURSE: The patient is a 66-year-old male with medical history of vent-dependent respiratory failure, on trach, dysphagia with G-tube, hypertension, COPD, diabetes mellitus, and encephalopathy, who presented to ED with congestion and respiratory distress. The patient was noted to be febrile, tachycardic, and tachypneic. Evaluation at ED showed leukocytosis, chest x-ray with evidence of right-sided infiltrate. Urinalysis showed 1+ leukocyte esterase with 2-4 WBC and 5-10 RBC. Rapid influenza test was negative. The patient was febrile to 101.4. He was given respiratory treatment and was started on IV antibiotics. He was admitted to [facility]. He was given IV vancomycin and Zosyn. Sputum culture showed growth of Proteus mirabilis and Serratia. Urine culture with Proteus. Vancomycin was discontinued and he was continued on Zosyn. He was given Solu-Medrol IV push. WBC was rising possibly secondary to steroid use. Legionella antigen was negative. Blood cultures did not isolate any growth. He was eventually discharged back to [facility]. FINAL DIAGNOSES: 1. Possible ventilator-associated pneumonia. 2. Acute and chronic respiratory failure. 3. Acute chronic obstructive pulmonary disease exacerbation. 4. Urinary tract infection with Proteus. 5. Dysphagia, on gastrostomy tube. 6. Encephalopathy. 7. Hypertension. 8. Possible sepsis. DISPOSITION: The patient was discharged to residential facility. DISCHARGE MEDICATIONS: Refer to medication list. Demetrius Andrade M.D. I have been assigned to dictate discharge summary on this account and I was not involved in the patient's management. Lisa Morales N.P. DR: Ronna JOB#: [id number] CC:
--- NOTE | 2017-07-19 16:00 | Cardiology Report ---
APPROVED REPORT EKG Measurement Heart [id number] Sinus tachycardia Otherwise normal ECG
== END 2017-07-16 15:39 | DRG 870 ==
LOC: EDBD 17:36 → EMR 18:12 → 2W 20:02 → EDBEDREQ 20:33 → 2W 07-12 05:02
PROC: 5A1955Z Respiratory Ventilation, Greater than 96 Consecutive Hours (ICD-10-PCS; principal; 2017-07-11)
DX: A41.9 Sepsis, unspecified organism (principal); J96.20 Acute and chronic respiratory failure, unspecified whether with hypoxia or hypercapnia; G93.40 Encephalopathy, unspecified; Z99.11 Dependence on respirator [ventilator] status; J95.851 Ventilator associated pneumonia; J44.1 Chronic obstructive pulmonary disease with (acute) exacerbation; Z43.0 Encounter for attention to tracheostomy; Z43.1 Encounter for attention to gastrostomy; N39.0 Urinary tract infection, site not specified; R13.10 Dysphagia, unspecified; I10 Essential (primary) hypertension; Z85.038 Personal history of other malignant neoplasm of large intestine; Y84.8 Other medical procedures as the cause of abnormal reaction of the patient, or of later complication, without mention of misadventure at the time of the procedure; B96.4 Proteus (mirabilis) (morganii) as the cause of diseases classified elsewhere; Z86.718 Personal history of other venous thrombosis and embolism
CPT/HCPCS: 36415; 36600; 71045; 76700; 80048; 80053; 80069; 80202; 81003; 82164; 82248; 82550; 82553; 82803; 83036; 83690; 83735; 83880; 84100; 84484; 85007; 85025; 85610; 85730; 86140; 86710; 86713; 87040; 87070; 87081; 87086; 87181; 87205; 93005; 93970; 94002; 94003; 94640; 94664; 99291; J7620

== ENCOUNTER 2017-12-30 18:35 | Inpatient (IN) | payer MEDICARE, OTHER, MEDICAID ==
[~2017-12-30] VITALS: Ht 190.5 cm; Wt 79.9 kg
[~2017-12-30 18:35] MED LIST changes: +ALBUTEROL2.5 MG/3 M INH; +BENADRYL A12.5 MG/5 ORAL; +BENADRYL25 MG ORAL; +COLACE100 MG ORAL; +DIPHENOXYLATE-1 EACH PO; +GUAIFENESI100 MG/5 M ORAL; +MILK OF MA400 MG/51 ORAL; +MULTI-DELYN237 ML ORAL; +NORVASC5 MG ORAL; +PROMETHAZI6.25 MG/2 ORAL; +UTI-STAT L3875 MG/31 PO; +VITAMIN C500 MG/11 PO; +ZANTAC150 MG ORAL; +ZINC SULFATE220 M1 ORAL; +ZOSYN 3.373.375 GM/1 IVPB
[2017-12-30 18:50] VITALS: BP 132/78
[2017-12-30] MEDS ORDERED: Sodium Chloride 500ML 500 ML IV ONE (19:10)
[2017-12-30] MEDS ORDERED: Ipratropium 0.02% Inh Soln 2.5ml UD HHN ONE ×2 (19:15→21:45)
[2017-12-30] MEDS ORDERED: Solu-MEDROL 125mg Inj IVP ONE (19:15)
[2017-12-30] MEDS ORDERED: Albuterol ud Inhalation HHN ONE (19:15)
[2017-12-30] MEDS ORDERED: ACETAMINOP160 MG/5 M ORAL (19:47)
[2017-12-30] MEDS ORDERED: NORCO 5-325 TA1 EACH ORAL ×2 (19:53)
[2017-12-30 20:00] VITALS: BP 110/70
[2017-12-30 20:14] LABS: BASOPHILS % (AUTO) 2.5 % (0.0-2.0); EOSINOPHILS % (AUTO) 2.7 % (0.0-3.0); HEMATOCRIT 39.2 % (42.0-52.0); HEMOGLOBIN 12.9 G/DL (14.2-18.0); LYMPHOCYTES % (AUTO) 15.3 % (20.0-45.0); MEAN CORPUSCULAR VOLUME 88 FL (80-99); MONOCYTES % (AUTO) 8.6 % (1.0-10.0); NEUTROPHILS % (AUTO) 70.9 % (45.0-75.0); PLATELET COUNT 272 K/UL (150-450); RED BLOOD COUNT 4.45 M/UL (4.70-6.10); RED CELL DISTRIBUTION WIDTH 11.6 % (11.6-14.8); WHITE BLOOD COUNT 9.8 K/UL (4.8-10.8)
[2017-12-30] MEDS: Levalbuterol Inh UD 1.25mg/0.5ml HHN SCH ×8 (20:15→21:15)
[2017-12-30] MEDS: Ipratropium 0.02% Inh Soln 2.5ml UD HHN SCH ×3 (20:26→20:57)
[2017-12-30 20:32] LABS: ANION GAP 9 mmol/L (5-15); BLOOD UREA NITROGEN 14 mg/dL (7-18); CALCIUM 9.5 MG/DL (8.5-10.1); CARBON DIOXIDE 30 MMOL/L (21-32); CHLORIDE 101 MMOL/L (98-107); CREATININE 1.2 MG/DL (0.55-1.30); POTASSIUM 4.2 MMOL/L (3.5-5.1); SODIUM 140 MMOL/L (136-145)
[2017-12-30 20:48] LABS: ALANINE AMINOTRANSFERASE 37 U/L (12-78); ALBUMIN 3.1 G/DL (3.4-5.0); ALBUMIN/GLOBULIN RATIO 0.6 (1.0-2.7); ALKALINE PHOSPHATASE 142 U/L (46-116); ASPARTATE AMINO TRANSFERASE 35 U/L (15-37); BILIRUBIN,TOTAL 0.8 MG/DL (0.2-1.0); CKMB 1.8 NG/ML (0.0-3.6); CREATINE KINASE 289 U/L (26-308)
[2017-12-30 21:30] VITALS: BP 101/70
[2017-12-30] MEDS ORDERED: Morphine Sulfate 4mg/ml Inj IVP PRN (21:30)
[2017-12-30] MEDS ORDERED: Miralax 17gm pkt ORAL PRN (21:30)
--- NOTE | 2017-12-30 21:41 | Emergency Room Report ---
History of Present Illness General Chief Complaint: Upper Respiratory Illness Source: Patient, Medical Record, EMS Present Illness HPI 67-year-old male presents ED for evaluation. [facility] for evaluation of cough and congestion, shortness of breath times one week. Patient is on ventilator with tracheostomy. History of COPD. Patient states he feels short of breath. Audible wheezes. Denies chest pain. Denies fevers or chills. No other aggravating or relieving factors. 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 Hx Gastrointestinal Problems: Yes Hx Dialysis: No Hx Neurological Problems: Yes - Metabolic encephalopathy Hx Cerebrovascular Accident: No Hx Seizures: No Hx Concentration Difficulty: Yes Hx Dysphasia: Yes - dysphagia Hx Weakness: Yes Review of Systems All Other Systems: negative except mentioned in HPI Physical Exam Vital Signs Date Time Temp Pulse Resp B/P (MAP) Pulse Ox O2 Delivery O2 Flow Rate FiO2 12/30/17 18:36 98.5 117 24 113/73 96 Trach Collar 36 98.4 12/30/17 19:05 15.0 Sp02 EP Interpretation: reviewed, normal General Appearance: no apparent distress, alert, GCS 15, non-toxic Head: normocephalic, atraumatic Eyes: bilateral eye normal inspection, bilateral eye PERRL ENT: hearing grossly normal, normal pharynx, no angioedema, normal voice Neck: full range of motion, supple/symm/no masses, tracheotomy Respiratory: chest non-tender, decreased breath sounds, speaking full sentences , wheezing Cardiovascular #1: no edema, tachycardia Cardiovascular #2: 2+ carotid (R), 2+ carotid (L), 2+ radial (R), 2+ radial (L) , 2+ dorsalis pedis (R), 2+ dorsalis pedis (L) Gastrointestinal: normal bowel sounds, non tender, soft, non-distended, no guarding, no rebound Rectal: deferred Genitourinary: normal inspection, no CVA tenderness Musculoskeletal: back normal, gait/station normal, normal range of motion, non- tender Neurologic: alert, oriented x3, responsive, motor strength/tone normal, sensory intact, speech normal Psychiatric: judgement/insight normal, memory normal, mood/affect normal, no suicidal/homicidal ideation Reflexes: 3+ bicep (R), 3+ bicep (L), 3+ tricep (R), 3+ tricep (L), 3+ knee (R) , 3+ knee (L) Skin: normal color, no rash, warm/dry, well hydrated Lymphatic: no adenopathy Medical Decision Making Diagnostic Impression: Primary Impression: COPD exacerbation Additional Impression: Pneumonia Qualified Codes: J18.9 - Pneumonia, unspecified organism ER Course Hospital Course 67-year-old M presenting to ED with SOB. h/o COPD Differential diagnoses include: Pneumonia, CHF exacerbation, pneumothorax, fluid overload Clinical course Patient placed on stretcher. On athletic monitor with stable vitals. After initial history and physical, I ordered nebulizer treatments. I ordered labs, IV fluids, EKG, chest x-ray, blood cultures, UA. Labs - no leukocytosis noted, hemoglobin/hematocrit stable, electrolytes okay, lactate okay, troponins negative CXR - hyperinflated lungs. ? R sided infiltrate IV fluids given. Antibiotics given. Solu-Medrol given. Patient still has some wheezing. Given magnesium. Additional breathing treatments given Case discussed with Dr. Petersen and he agreed to the patient to his service for further care and support I feel this is a highly complex case requiring extensive working including EKG/ Rhythm strip, Xray/CT/US, Blood/urine lab work, repeat exams while in ED, and administration of strong opiates/narcotics for pain control, admission to hospital or close patient follow up. Diagnosis - COPD exacerbation, Pneumonia Patient admitted to [facility] in serious condition Labs Test 12/30/17 19:55 12/30/17 21:30 White Blood Count 9.8 K/UL (4.8-10.8) Red Blood Count 4.45 M/UL (4.70-6.10) Hemoglobin 12.9 G/DL (14.2-18.0) Hematocrit 39.2 % (42.0-52.0) Mean Corpuscular Volume 88 FL (80-99) Mean Corpuscular Hemoglobin 28.9 PG (27.0-31.0) Mean Corpuscular Hemoglobin Concent 32.9 G/DL (32.0-36.0) Red Cell Distribution Width 11.6 % (11.6-14.8) Platelet Count 272 K/UL (150-450) Mean Platelet Volume 6.2 FL (6.5-10.1) Neutrophils (%) (Auto) 70.9 % (45.0-75.0) Lymphocytes (%) (Auto) 15.3 % (20.0-45.0) Monocytes (%) (Auto) 8.6 % (1.0-10.0) Eosinophils (%) (Auto) 2.7 % (0.0-3.0) Basophils (%) (Auto) 2.5 % (0.0-2.0) Sodium Level 140 MMOL/L (136-145) Potassium Level 4.2 MMOL/L (3.5-5.1) Chloride Level 101 MMOL/L (98-107) Carbon Dioxide Level 30 MMOL/L (21-32) Anion Gap 9 mmol/L (5-15) Blood Urea Nitrogen 14 mg/dL (7-18) Creatinine 1.2 MG/DL (0.55-1.30) Estimat Glomerular Filtration Rate > 60 mL/min (>60) Glucose Level 120 MG/DL (74-106) Lactic Acid Level 2.00 mmol/L (0.4-2.0) Calcium Level 9.5 MG/DL (8.5-10.1) Total Bilirubin 0.8 MG/DL (0.2-1.0) Aspartate Amino Transf (AST/SGOT) 35 U/L (15-37) Alanine Aminotransferase (ALT/SGPT) 37 U/L (12-78) Alkaline Phosphatase 142 U/L (46-116) Total Creatine Kinase 289 U/L (26-308) Creatine Kinase MB 1.8 NG/ML (0.0-3.6) Creatine Kinase MB Relative Index 0.6 Troponin I 0.000 ng/mL (0.000-0.056) Pro-B-Type Natriuretic Peptide 58 pg/mL (0-125) Total Protein 8.7 G/DL (6.4-8.2) Albumin 3.1 G/DL (3.4-5.0) Globulin 5.6 g/dL Albumin/Globulin Ratio 0.6 (1.0-2.7) EKG Diagnostic Results Rate: tachycardiac Rhythm: NSR ST Segments: no acute changes ASA given to the pt in ED: No Rhythm Strip Diag. Results EP Interpretation: yes Rhythm: NSR, no PVC's, no ectopy Chest X-Ray Diagnostic Results Chest X-Ray Diagnostic Results : Chest X-Ray Ordered: Yes # of Views/Limited/Complete: 1 View Indication: Shortness of Breath EP Interpretation: Yes Interpretation: no effusion, no pneumothorax, other - hyperinflated lungs. ? infiltrate on R Impression: Other - copd/PNA Electronically Signed by: Electronically signed by Donell Bauer MD Last Vital Signs Date Time Temp Pulse Resp B/P (MAP) Pulse Ox O2 Delivery O2 Flow Rate FiO2 12/30/17 20:47 119 22 36 12/30/17 20:46 100 Mechanical Ventilator 12/30/17 19:15 15.0 12/30/17 18:50 98.4 132/78 98.4 Status: improved Disposition: ADMITTED INPATIENT Condition: Serious Referrals: Elan Petersen DO (PCP) Donell Bauer MD Dec 30, 2017 21:41
[2017-12-30] MEDS ORDERED: Levalbuterol Inh UD 1.25mg/0.5ml HHN ONE (21:45)
[2017-12-30 21:49] LABS: APPEARANCE,URINE SLIGHTLY CLOUDY; BILIRUBIN, URINE NEGATIVE (NEGATIVE); GLUCOSE, URINE (UA) NEGATIVE (NEGATIVE); KETONES,URINE NEGATIVE (NEGATIVE); LEUKOCYTE ESTERASE ,URINE 1+ (NEGATIVE); NITRITE,URINE NEGATIVE (NEGATIVE); PH,URINE 5 (4.5-8.0); PROTEIN,URINE 2+ (NEGATIVE); UROBILINOGEN,URINE 4 MG/DL (0.0-1.0)
[2017-12-30 21:52] LABS: COLOR,URINE AMBER
[2017-12-30 22:17] VITALS: BP 114/85
[2017-12-30] MEDS ORDERED: Vancomycin 1250mg/D5W 250ml IVPB ONE (23:00)
[2017-12-31 05:54] LABS: HEMATOCRIT 36.7 % (42.0-52.0); HEMOGLOBIN 12.5 G/DL (14.2-18.0); MEAN CORPUSCULAR VOLUME 88 FL (80-99); PLATELET COUNT 282 K/UL (150-450); RED BLOOD COUNT 4.17 M/UL (4.70-6.10); RED CELL DISTRIBUTION WIDTH 11.3 % (11.6-14.8); WHITE BLOOD COUNT 11.2 K/UL (4.8-10.8)
[2017-12-31 06:10] LABS: ALBUMIN 2.9 G/DL (3.4-5.0); ANION GAP 7 mmol/L (5-15); BLOOD UREA NITROGEN 13 mg/dL (7-18); CALCIUM 9.4 MG/DL (8.5-10.1); CARBON DIOXIDE 30 MMOL/L (21-32); CHLORIDE 100 MMOL/L (98-107); CREATININE 1.1 MG/DL (0.55-1.30); PHOSPHORUS 3.9 MG/DL (2.5-4.9); POTASSIUM 4.6 MMOL/L (3.5-5.1); SODIUM 137 MMOL/L (136-145)
[2017-12-31 08:00] VITALS: BP 125/71
[2017-12-31] MEDS: Pantoprazole Inj IV SCH (09:13)
[2017-12-31] MEDS: Heparin 5000 units/ml inj SUBQ SCH ×2 (09:15→20:51)
[2017-12-31] MEDS: Vancomycin 750mg/NS 250ml IVPB SCH ×2 (09:25→22:58)
[2017-12-31] MEDS: Albuterol/Ipratropium 3ml neb HHN PRN ×3 (10:25→21:17)
--- NOTE | 2017-12-31 11:30 | Consultation ---
History of Present Illness General Date patient seen: Dec 31, 2017 Chief Complaint: Upper Respiratory Illness Present Illness HPI 67-year-old male with hx of ventilator with tracheostomy, COPD presented to ED for evaluation of cough and congestion, shortness of breath times one week and fever. Patient states he feels short of breath and had audible wheezes. Denies chest pain. Denies fevers or chills. Pt is admitted to [facility] for acute on chronic respiratory failure and fever. Allergies: Coded Allergies: No Known Allergies (Unverified , 06/17/16) Medication History Scheduled Amlodipine Besylate (Norvasc), 5 MG ORAL DAILY, (Reported) Cran/Vitc/Mannose/Inulin/Brom (Uti-Stat Liquid), 3,875 MG PO DAILY, (Reported) Docusate Sodium* (Colace*), 100 MG ORAL DAILY, (Reported) Folic Acid* (Folic Acid*), 1 MG ORAL DAILY, (Reported) Multivitamin Liquid* (Multi-Delyn*), 15 ML ORAL DAILY, (Reported) Bkbajzdwhqzi-Vnls-Giglpwnw,Iso (Zosyn 3.375 Gm Pre Mix-Bag), 3.375 GM IVPB EVERY 8 HOURS Ranitidine Hcl* (Zantac*), 150 MG ORAL DAILY, (Reported) Vit C/Ascorbate Ca/Ascorb Sod (Vitamin C 500 Mg/15 Ml Liquid), 500 MG GT DAILY, (Reported) Zinc Sulfate (Zinc Sulfate*), 220 MG ORAL DAILY, (Reported) Scheduled PRN Acetaminophen 160MG/5ML* (Acetaminophen*), 20 ML ORAL Q4HR PRN for Fever/ Headache/Mild Pain, (Reported) Albuterol Sulfate* (Albuterol Sulfate Hhn*), 3 ML INH Q6HR PRN for Shortness of breath, (Reported) Bisacodyl (Dulcolax), 10 MG RC for Constipation, (Reported) Diphenhydramine Hcl* (Benadryl*), 25 MG ORAL Q8HR PRN for Itching, (Reported) Diphenoxylate Hcl/Atropine (Diphenoxylate-Atropine Tablet), 1 EACH PO Q4HR PRN for Diarrhea, (Reported) Guaifenesin* (Guaifenesin), 5 ML ORAL Q6H PRN for For Cough, (Reported) Hydrocodone Bit/Acetaminophen 5-325* ([place] 5-325*), 1 TAB ORAL Q6H PRN for For Pain, (Reported) Magnesium Hydroxide* (Milk Of Magnesia*), 30 ML ORAL QHS PRN for Constipation, ( Reported) Na Phos,M-B/Na Phos,Di-Ba* (Fleet Enema*), 118 ML RECTAL for Constipation, ( Reported) Promethazine HCl (Promethazine HCl), 5 ML ORAL Q6H PRN for For Cough, (Reported) Miscellaneous Medications Vit C/Ascorbate Ca/Ascorb Sod (Vitamin C 500 Mg/15 Ml Liquid), 500 MG PO, ( Reported) Patient History Healthcare decision maker Resuscitation status Full Code Advanced Directive on File Yes Past Medical/Surgical History Past Medical/Surgical History: (1) Emphysema lung (2) Adenocarcinoma of cecum (3) Lung nodule (4) DVT (deep venous thrombosis) (5) Empyema Review of Systems All Other Systems: negative except mentioned in HPI Physical Exam General Appearance: WD/WN, no apparent distress Lines, tubes and drains: peripheral HEENT: normocephalic, atraumatic Neck: non-tender, normal alignment Respiratory/Chest: chest wall non-tender, lungs clear, normal breath sounds Breasts: no masses Cardiovascular/Chest: normal peripheral pulses, normal rate Abdomen: normal bowel sounds, non tender Genitourinary/Rectal: normal genital exam, normal rectal exam Extremities: normal range of motion, non-tender Skin Exam: normal pigmentation 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: nurse assessor II-XII grossly normal Last 24 Hour Vital Signs Date Time Temp Pulse Resp B/P (MAP) Pulse Ox O2 Delivery O2 Flow Rate FiO2 12/31/17 10:40 96 26 50 12/31/17 10:30 50 12/31/17 10:25 96 26 99 Mechanical Ventilator 50 12/31/17 09:24 80 23 50 12/31/17 09:13 94 125/71 12/31/17 08:00 50 12/31/17 08:00 98.7 94 19 125/71 99 Mechanical Ventilator 50 98.7 12/31/17 07:43 85 12/31/17 07:20 88 23 50 12/31/17 05:24 112 23 50 12/31/17 04:00 50 12/31/17 03:53 87 12/31/17 03:50 109 24 50 12/31/17 01:20 112 24 50 12/31/17 00:01 100.4 12/31/17 00:00 108 12/30/17 23:33 117 22 100 Mechanical Ventilator 50 12/30/17 23:33 50 12/30/17 23:23 115 20 100 Mechanical Ventilator 50 12/30/17 23:03 115 23 50 12/30/17 23:02 101.4 12/30/17 22:21 36 12/30/17 22:17 100.6 122 26 114/85 99 Mechanical Ventilator 36 100.6 12/30/17 22:09 119 12/30/17 21:55 98.4 114 17 101/70 100 Mechanical Ventilator 15.0 36 98.4 12/30/17 21:30 98.4 114 17 101/70 100 Mechanical Ventilator 15.0 36 98.4 12/30/17 20:47 119 22 36 12/30/17 20:46 50 12/30/17 20:46 119 22 100 Mechanical Ventilator 50 12/30/17 20:31 116 20 100 Mechanical Ventilator 50 12/30/17 20:00 98.2 120 23 110/70 100 Mechanical Ventilator 15.0 50 98.2 12/30/17 19:42 115 24 100 Mechanical Ventilator 50 12/30/17 19:42 50 12/30/17 19:32 102 25 100 Mechanical Ventilator 50 12/30/17 19:15 15.0 36 12/30/17 19:14 112 27 36 12/30/17 19:05 15.0 36 12/30/17 18:50 98.4 120 22 132/78 100 Mechanical Ventilator 98.4 12/30/17 18:46 120 22 Trach Collar 12/30/17 18:36 98.5 117 24 113/73 96 Trach Collar 36 98.4 Intake and Output 12/30/17 12/31/17 19:00 07:00 Intake Total 650 ml Output Total 200 ml Balance 450 ml Intake Oral 0 ml IV Total 600 ml Other 50 ml Output Urine Total 200 ml Laboratory Tests Test 12/30/17 19:55 12/30/17 21:30 12/31/17 05:16 White Blood Count 9.8 K/UL (4.8-10.8) 11.2 K/UL (4.8-10.8) H Red Blood Count 4.45 M/UL (4.70-6.10) L 4.17 M/UL (4.70-6.10) L Hemoglobin 12.9 G/DL (14.2-18.0) L 12.5 G/DL (14.2-18.0) L Hematocrit 39.2 % (42.0-52.0) L 36.7 % (42.0-52.0) L Mean Corpuscular Volume 88 FL (80-99) 88 FL (80-99) Mean Corpuscular Hemoglobin 28.9 PG (27.0-31.0) 30.1 PG (27.0-31.0) Mean Corpuscular Hemoglobin Concent 32.9 G/DL (32.0-36.0) 34.2 G/DL (32.0-36.0) Red Cell Distribution Width 11.6 % (11.6-14.8) 11.3 % (11.6-14.8) L Platelet Count 272 K/UL (150-450) 282 K/UL (150-450) Mean Platelet Volume 6.2 FL (6.5-10.1) L 6.5 FL (6.5-10.1) Neutrophils (%) (Auto) 70.9 % (45.0-75.0) % (45.0-75.0) Lymphocytes (%) (Auto) 15.3 % (20.0-45.0) L % (20.0-45.0) Monocytes (%) (Auto) 8.6 % (1.0-10.0) % (1.0-10.0) Eosinophils (%) (Auto) 2.7 % (0.0-3.0) % (0.0-3.0) Basophils (%) (Auto) 2.5 % (0.0-2.0) H % (0.0-2.0) Sodium Level 140 MMOL/L (136-145) 137 MMOL/L (136-145) Potassium Level 4.2 MMOL/L (3.5-5.1) 4.6 MMOL/L (3.5-5.1) Chloride Level 101 MMOL/L (98-107) 100 MMOL/L (98-107) Carbon Dioxide Level 30 MMOL/L (21-32) 30 MMOL/L (21-32) Anion Gap 9 mmol/L (5-15) 7 mmol/L (5-15) Blood Urea Nitrogen 14 mg/dL (7-18) 13 mg/dL (7-18) Creatinine 1.2 MG/DL (0.55-1.30) 1.1 MG/DL (0.55-1.30) Estimat Glomerular Filtration Rate > 60 mL/min (>60) > 60 mL/min (>60) Glucose Level 120 MG/DL (74-106) H 153 MG/DL (74-106) H Lactic Acid Level 2.00 mmol/L (0.4-2.0) 0.90 mmol/L (0.66-2.22) Calcium Level 9.5 MG/DL (8.5-10.1) 9.4 MG/DL (8.5-10.1) Total Bilirubin 0.8 MG/DL (0.2-1.0) Aspartate Amino Transf (AST/SGOT) 35 U/L (15-37) Alanine Aminotransferase (ALT/SGPT) 37 U/L (12-78) Alkaline Phosphatase 142 U/L (46-116) H Total Creatine Kinase 289 U/L (26-308) Creatine Kinase MB 1.8 NG/ML (0.0-3.6) Creatine Kinase MB Relative Index 0.6 Troponin I 0.000 ng/mL (0.000-0.056) Pro-B-Type Natriuretic Peptide 58 pg/mL (0-125) Total Protein 8.7 G/DL (6.4-8.2) H Albumin 3.1 G/DL (3.4-5.0) L 2.9 G/DL (3.4-5.0) L Globulin 5.6 g/dL Albumin/Globulin Ratio 0.6 (1.0-2.7) L Urine Color Ghada Urine Appearance Slightly cloudy Urine pH 5 (4.5-8.0) Urine Specific [place] 1.020 (1.005-1.035) Urine Protein 2+ (NEGATIVE) H Urine Glucose (UA) Negative (NEGATIVE) Urine Ketones Negative (NEGATIVE) Urine Occult Blood 4+ (NEGATIVE) H Urine Nitrite Negative (NEGATIVE) Urine Bilirubin Negative (NEGATIVE) Urine Ictotest Negative Urine Urobilinogen 4 MG/DL (0.0-1.0) H Urine Leukocyte Esterase 1+ (NEGATIVE) H Urine RBC 5-10 /HPF (0 - 0) H Urine WBC 2-4 /HPF (0 - 0) Urine Squamous Epithelial Cells Occasional /LPF Urine Amorphous Sediment Many /LPF (NONE) H Urine Bacteria Few /HPF (NONE) Phosphorus Level 3.9 MG/DL (2.5-4.9) Height (Feet): 6 Height (Inches): 3.00 Weight (Pounds): 176 Medications Current Medications Medications (Trade) Dose Ordered Sig/Shradhda Route PRN Reason Start Time Stop Time Status Last Admin Dose Admin Acetaminophen (Tylenol) 650 mg Q4H PRN ORAL FEVER 12/30/17 21:30 01/29/18 21:29 12/30/17 23:02 Albuterol/ Ipratropium (Albuterol/ Ipratropium) 3 ml Q4H PRN HHN Shortness of Breath 12/30/17 21:30 01/04/18 21:29 12/31/17 10:25 Amlodipine Besylate (Norvasc) 5 mg DAILY ORAL 12/31/17 09:00 01/30/18 08:59 12/31/17 09:13 Dextrose (Dextrose 50%) 25 ml STAT PRN IV Hypoglycemia 12/30/17 21:30 01/29/18 21:29 Heparin Sodium (Porcine) (Heparin 5000 units/ml) 5,000 units EVERY 12 HOURS SUBQ 12/31/17 09:00 01/30/18 08:59 12/31/17 09:15 Lorazepam (Ativan 2mg/ml 1ml) 2 mg Q2H PRN IV For Anxiety 12/30/17 21:30 01/06/18 21:29 Morphine Sulfate (Morphine Sulfate) 4 mg Q4H PRN IVP Severe Pain (Pain Scale 7-10) 12/30/17 21:30 01/06/18 21:29 Ondansetron HCl (Zofran) 4 mg Q6H PRN IVP Nausea & Vomiting 12/30/17 21:30 01/29/18 21:29 Pantoprazole (Protonix) 40 mg DAILY IV 12/31/17 09:00 01/30/18 08:59 12/31/17 09:13 Polyethylene Glycol (Miralax) 17 gm DAILYPRN PRN ORAL Constipation 12/30/17 21:30 01/29/18 21:29 Vancomycin HCl (Vanco rx to dose) 1 ea DAILY PRN MISC pharmacy to dose 12/30/17 21:45 01/29/18 21:44 Vancomycin/Sodium Chloride 250 ml @ 166.667 mls/hr Q12H IVPB 12/31/17 10:00 01/05/18 09:59 12/31/17 09:25 Assessment/Plan Problem List: (1) Acute and chronic respiratory failure ICD Codes: J96.20 - Acute and chronic respiratory failure, unspecified whether with hypoxia or hypercapnia SNOMED: 19714140, 46677634 (2) Fever ICD Codes: R50.9 - Fever, unspecified SNOMED: 260816845 (3) COPD exacerbation ICD Codes: J44.1 - Chronic obstructive pulmonary disease with (acute) exacerbation SNOMED: 398720432, 125062674 (4) Chronic respiratory failure ICD Codes: J96.10 - Chronic respiratory failure, unspecified whether with hypoxia or hypercapnia SNOMED: 58733972 (5) Emphysema lung ICD Codes: J43.9 - Emphysema, unspecified SNOMED: 63610533 Assessment/Plan myers culture broad spectrum antibiotics respiratory therapy check sputum culture titrate fio2 to sat of 92% titrate vent setting check electrolytes periodically Demetrius Andrade MD Dec 31, 2017 11:30
[2017-12-31 11:46] VITALS: BP 111/74
--- NOTE | 2017-12-31 11:57 | Diagnostic Imaging Report ---
Indication: Dyspnea Comparison: 07/14/2017 A single view chest radiograph was obtained. Findings: Trace right pleural effusion may be present. Tracheostomy noted. Some increased reticular markings noted within the lung bases. Heart size is normal. IMPRESSION: Possible small right pleural effusion versus thickening. Mild increased reticular markings at the lung bases nonspecific
[2017-12-31] MEDS ORDERED: Piperacillin/Tazobactam 3.375 GM in D5W 110 ML IVPB SCH (15:00)
--- NOTE | 2017-12-31 15:01 | Cardiology Report ---
APPROVED REPORT EKG Measurement Heart [id number] [id number] Sinus tachycardia Septal infarct, age undetermined Abnormal ECG
[2017-12-31 15:49] VITALS: BP 119/65
--- NOTE | 2017-12-31 18:31 | History and Physical Report ---
DATE OF ADMISSION: 12/30/2017 CONSULTANTS: Demetrius Andrade M.D. CHIEF COMPLAINT: Respiratory failure, COPD exacerbation. BRIEF HISTORY: This is a 67-year-old male from [facility] presented with the above-mentioned diagnosis, very short of breath, came into [facility], diagnosed with the above, admitted to [facility] for further care. Currently, calm in bed, trach vented, but unable to speak. PAST MEDICAL HISTORY: Respiratory failure, hypertension, and DVT. PAST SURGICAL HISTORY: Trach and abdominal surgery. MEDICATIONS: Vancomycin, Zosyn, amlodipine, heparin, pantoprazole, ipratropium, Zofran, and dextrose. ALLERGIES: Denies. SOCIAL HISTORY: No smoking. No alcohol. No intravenous drug abuse. FAMILY HISTORY: Noncontributory. REVIEW OF SYSTEMS: No chest pain. Slight short of breath. No nausea, vomiting, or diarrhea. PHYSICAL EXAMINATION: GENERAL: Calm in bed, oriented x3, trach vented, nonverbal. VITAL SIGNS: Temperature is 98 degrees, pulse 99, respirations 28 and blood pressure 111/74. CARDIOVASCULAR: No murmur. LUNGS: Poor air exchange. ABDOMEN: Bowel sounds distant. EXTREMITIES: No cyanosis, clubbing, or edema. NEUROLOGIC: The patient moves all extremities, slightly weak, as noted trach in place. Slightly weak. LABORATORY AND DIAGNOSTIC DATA: White count 11.3, hemoglobin and hematocrit 12/36, otherwise CBC is normal. BMP shows glucose 153, otherwise, normal. Albumin 2.9. ASSESSMENT: 1. Chronic obstructive pulmonary disease exacerbation, possible pneumonia and sepsis. 2. Hypertension. 3. Deep venous thrombosis. 4. Diabetes. 5. Hypoalbuminemia. PLAN: 1. Continue previous medication. 2. Vent per Pulmonary. 3. Antibiotics per Infectious Disease. 4. Blood pressure and blood sugar control. 5. Dietary followup. 6. Dr. Andrade and Dr. Trujillo to consult. 7. We will continue to follow the patient medically. Elan Petersen D.O. DR: ESAU JOB#: [id number] CC:
--- NOTE | 2017-12-31 19:05 | Consultation ---
History of Present Illness General Date patient seen: Dec 31, 2017 Chief Complaint: Upper Respiratory Illness Present Illness HPI 67 y/o M with hx of DM, HTN, asthma, COPD,interstitial PNA, MDR Acinetobacter and PsA PNA, MDR Acinetobacter UTI, Colon mass s/p hemicolectomy, chronic resp failure trach/vent dependant, pHTN, RLE DVT, pulmonary nodules, SNF resident presents to ED on 12/30 with cough, congestion, fever and SOB. Denied CP, n/v/d Of note, patient admitted here on July 2017 with sepsis and VAP Allergies: Coded Allergies: No Known Allergies (Unverified , 06/17/16) Medication History Scheduled Amlodipine Besylate (Norvasc), 5 MG ORAL DAILY, (Reported) Cran/Vitc/Mannose/Inulin/Brom (Uti-Stat Liquid), 3,875 MG PO DAILY, (Reported) Docusate Sodium* (Colace*), 100 MG ORAL DAILY, (Reported) Folic Acid* (Folic Acid*), 1 MG ORAL DAILY, (Reported) Multivitamin Liquid* (Multi-Delyn*), 15 ML ORAL DAILY, (Reported) Nyputwbjzcap-Agce-Kqbmorii,Iso (Zosyn 3.375 Gm Pre Mix-Bag), 3.375 GM IVPB EVERY 8 HOURS Ranitidine Hcl* (Zantac*), 150 MG ORAL DAILY, (Reported) Vit C/Ascorbate Ca/Ascorb Sod (Vitamin C 500 Mg/15 Ml Liquid), 500 MG GT DAILY, (Reported) Zinc Sulfate (Zinc Sulfate*), 220 MG ORAL DAILY, (Reported) Scheduled PRN Acetaminophen 160MG/5ML* (Acetaminophen*), 20 ML ORAL Q4HR PRN for Fever/ Headache/Mild Pain, (Reported) Albuterol Sulfate* (Albuterol Sulfate Hhn*), 3 ML INH Q6HR PRN for Shortness of breath, (Reported) Bisacodyl (Dulcolax), 10 MG RC for Constipation, (Reported) Diphenhydramine Hcl* (Benadryl*), 25 MG ORAL Q8HR PRN for Itching, (Reported) Diphenoxylate Hcl/Atropine (Diphenoxylate-Atropine Tablet), 1 EACH PO Q4HR PRN for Diarrhea, (Reported) Guaifenesin* (Guaifenesin), 5 ML ORAL Q6H PRN for For Cough, (Reported) Hydrocodone Bit/Acetaminophen 5-325* ([place] 5-325*), 1 TAB ORAL Q6H PRN for For Pain, (Reported) Magnesium Hydroxide* (Milk Of Magnesia*), 30 ML ORAL QHS PRN for Constipation, ( Reported) Na Phos,M-B/Na Phos,Di-Ba* (Fleet Enema*), 118 ML RECTAL for Constipation, ( Reported) Promethazine HCl (Promethazine HCl), 5 ML ORAL Q6H PRN for For Cough, (Reported) Miscellaneous Medications Vit C/Ascorbate Ca/Ascorb Sod (Vitamin C 500 Mg/15 Ml Liquid), 500 MG PO, ( Reported) Patient History Healthcare decision maker Resuscitation status Full Code Advanced Directive on File Yes Patient History Narrative Pmhx: as above Shx: Denies: smoking, alcohol use, drug use Fhx: non contributory Review of Systems All Other Systems: negative except mentioned in HPI Physical Exam Physical Exam Narrative GENERAL: Calm in bed, oriented x3, trach vented, nonverbal. CARDIOVASCULAR: No murmur. LUNGS: Poor air exchange. ABDOMEN: Bowel sounds distant. EXTREMITIES: No cyanosis, clubbing, or edema. NEUROLOGIC: The patient moves all extremities, slightly weak, as noted trach in place. Slightly weak. Last 24 Hour Vital Signs Date Time Temp Pulse Resp B/P (MAP) Pulse Ox O2 Delivery O2 Flow Rate FiO2 12/31/17 17:40 50 12/31/17 17:33 101 24 99 Mechanical Ventilator 50 12/31/17 17:25 101 24 50 12/31/17 16:00 50 12/31/17 16:00 110 12/31/17 15:49 97.7 81 19 119/65 99 Mechanical Ventilator 50 97.7 12/31/17 15:27 100 25 50 12/31/17 13:17 99 28 50 12/31/17 12:00 96 12/31/17 12:00 50 12/31/17 11:46 98.6 91 19 111/74 100 Mechanical Ventilator 50 98.6 12/31/17 10:40 96 26 50 12/31/17 10:35 96 26 100 Mechanical Ventilator 50 12/31/17 10:30 50 12/31/17 10:25 96 26 99 Mechanical Ventilator 50 12/31/17 09:24 80 23 50 12/31/17 09:13 94 125/71 12/31/17 08:00 50 12/31/17 08:00 98.7 94 19 125/71 99 Mechanical Ventilator 50 98.7 12/31/17 07:43 85 12/31/17 07:20 88 23 50 12/31/17 05:24 112 23 50 12/31/17 04:00 50 12/31/17 03:53 87 12/31/17 03:50 109 24 50 12/31/17 01:20 112 24 50 12/31/17 00:01 100.4 12/31/17 00:00 108 12/30/17 23:33 117 22 100 Mechanical Ventilator 50 12/30/17 23:33 50 12/30/17 23:23 115 20 100 Mechanical Ventilator 50 12/30/17 23:03 115 23 50 12/30/17 23:02 101.4 12/30/17 22:21 36 12/30/17 22:17 100.6 122 26 114/85 99 Mechanical Ventilator 36 100.6 12/30/17 22:09 119 12/30/17 21:55 98.4 114 17 101/70 100 Mechanical Ventilator 15.0 36 98.4 12/30/17 21:30 98.4 114 17 101/70 100 Mechanical Ventilator 15.0 36 98.4 12/30/17 20:47 119 22 36 12/30/17 20:46 50 12/30/17 20:46 119 22 100 Mechanical Ventilator 50 12/30/17 20:31 116 20 100 Mechanical Ventilator 50 12/30/17 20:00 98.2 120 23 110/70 100 Mechanical Ventilator 15.0 50 98.2 12/30/17 19:42 115 24 100 Mechanical Ventilator 50 12/30/17 19:42 50 12/30/17 19:32 102 25 100 Mechanical Ventilator 50 12/30/17 19:15 15.0 36 12/30/17 19:14 112 27 36 12/30/17 19:05 15.0 36 12/30/17 18:50 98.4 120 22 132/78 100 Mechanical Ventilator 98.4 Intake and Output 18 12/31/17 19:00 07:00 Intake Total 650 ml Output Total 200 ml Balance 450 ml Intake Oral 0 ml IV Total 600 ml Other 50 ml Output Urine Total 200 ml Laboratory Tests Test 12/30/17 19:55 12/30/17 21:30 12/31/17 05:16 White Blood Count 9.8 K/UL (4.8-10.8) 11.2 K/UL (4.8-10.8) H Red Blood Count 4.45 M/UL (4.70-6.10) L 4.17 M/UL (4.70-6.10) L Hemoglobin 12.9 G/DL (14.2-18.0) L 12.5 G/DL (14.2-18.0) L Hematocrit 39.2 % (42.0-52.0) L 36.7 % (42.0-52.0) L Mean Corpuscular Volume 88 FL (80-99) 88 FL (80-99) Mean Corpuscular Hemoglobin 28.9 PG (27.0-31.0) 30.1 PG (27.0-31.0) Mean Corpuscular Hemoglobin Concent 32.9 G/DL (32.0-36.0) 34.2 G/DL (32.0-36.0) Red Cell Distribution Width 11.6 % (11.6-14.8) 11.3 % (11.6-14.8) L Platelet Count 272 K/UL (150-450) 282 K/UL (150-450) Mean Platelet Volume 6.2 FL (6.5-10.1) L 6.5 FL (6.5-10.1) Neutrophils (%) (Auto) 70.9 % (45.0-75.0) % (45.0-75.0) Lymphocytes (%) (Auto) 15.3 % (20.0-45.0) L % (20.0-45.0) Monocytes (%) (Auto) 8.6 % (1.0-10.0) % (1.0-10.0) Eosinophils (%) (Auto) 2.7 % (0.0-3.0) % (0.0-3.0) Basophils (%) (Auto) 2.5 % (0.0-2.0) H % (0.0-2.0) Sodium Level 140 MMOL/L (136-145) 137 MMOL/L (136-145) Potassium Level 4.2 MMOL/L (3.5-5.1) 4.6 MMOL/L (3.5-5.1) Chloride Level 101 MMOL/L (98-107) 100 MMOL/L (98-107) Carbon Dioxide Level 30 MMOL/L (21-32) 30 MMOL/L (21-32) Anion Gap 9 mmol/L (5-15) 7 mmol/L (5-15) Blood Urea Nitrogen 14 mg/dL (7-18) 13 mg/dL (7-18) Creatinine 1.2 MG/DL (0.55-1.30) 1.1 MG/DL (0.55-1.30) Estimat Glomerular Filtration Rate > 60 mL/min (>60) > 60 mL/min (>60) Glucose Level 120 MG/DL (74-106) H 153 MG/DL (74-106) H Lactic Acid Level 2.00 mmol/L (0.4-2.0) 0.90 mmol/L (0.66-2.22) Calcium Level 9.5 MG/DL (8.5-10.1) 9.4 MG/DL (8.5-10.1) Total Bilirubin 0.8 MG/DL (0.2-1.0) Aspartate Amino Transf (AST/SGOT) 35 U/L (15-37) Alanine Aminotransferase (ALT/SGPT) 37 U/L (12-78) Alkaline Phosphatase 142 U/L (46-116) H Total Creatine Kinase 289 U/L (26-308) Creatine Kinase MB 1.8 NG/ML (0.0-3.6) Creatine Kinase MB Relative Index 0.6 Troponin I 0.000 ng/mL (0.000-0.056) Pro-B-Type Natriuretic Peptide 58 pg/mL (0-125) Total Protein 8.7 G/DL (6.4-8.2) H Albumin 3.1 G/DL (3.4-5.0) L 2.9 G/DL (3.4-5.0) L Globulin 5.6 g/dL Albumin/Globulin Ratio 0.6 (1.0-2.7) L Urine Color Ghada Urine Appearance Slightly cloudy Urine pH 5 (4.5-8.0) Urine Specific [place] 1.020 (1.005-1.035) Urine Protein 2+ (NEGATIVE) H Urine Glucose (UA) Negative (NEGATIVE) Urine Ketones Negative (NEGATIVE) Urine Occult Blood 4+ (NEGATIVE) H Urine Nitrite Negative (NEGATIVE) Urine Bilirubin Negative (NEGATIVE) Urine Ictotest Negative Urine Urobilinogen 4 MG/DL (0.0-1.0) H Urine Leukocyte Esterase 1+ (NEGATIVE) H Urine RBC 5-10 /HPF (0 - 0) H Urine WBC 2-4 /HPF (0 - 0) Urine Squamous Epithelial Cells Occasional /LPF Urine Amorphous Sediment Many /LPF (NONE) H Urine Bacteria Few /HPF (NONE) Phosphorus Level 3.9 MG/DL (2.5-4.9) Microbiology Date/Time Source Procedure Growth Status 12/31/17 11:30 Sputum Gram Stain - Final Resulted 12/31/17 11:30 Sputum Sputum Culture Pending Resulted Height (Feet): 6 Height (Inches): 3.00 Weight (Pounds): 176 Medications Current Medications Medications (Trade) Dose Ordered Sig/Shraddha Route PRN Reason Start Time Stop Time Status Last Admin Dose Admin Acetaminophen (Tylenol) 650 mg Q4H PRN ORAL FEVER 12/30/17 21:30 01/29/18 21:29 12/30/17 23:02 Albuterol/ Ipratropium (Albuterol/ Ipratropium) 3 ml Q4H PRN HHN Shortness of Breath 12/30/17 21:30 01/04/18 21:29 12/31/17 17:33 Amlodipine Besylate (Norvasc) 5 mg DAILY ORAL 12/31/17 09:00 01/30/18 08:59 12/31/17 09:13 Dextrose (Dextrose 50%) 25 ml STAT PRN IV Hypoglycemia 12/30/17 21:30 01/29/18 21:29 Heparin Sodium (Porcine) (Heparin 5000 units/ml) 5,000 units EVERY 12 HOURS SUBQ 12/31/17 09:00 01/30/18 08:59 12/31/17 09:15 Lorazepam (Ativan 2mg/ml 1ml) 2 mg Q2H PRN IV For Anxiety 12/30/17 21:30 01/06/18 21:29 Morphine Sulfate (Morphine Sulfate) 4 mg Q4H PRN IVP Severe Pain (Pain Scale 7-10) 12/30/17 21:30 01/06/18 21:29 Ondansetron HCl (Zofran) 4 mg Q6H PRN IVP Nausea & Vomiting 12/30/17 21:30 01/29/18 21:29 Pantoprazole (Protonix) 40 mg DAILY IV 12/31/17 09:00 01/30/18 08:59 12/31/17 09:13 Piperacillin Sod/ Tazobactam Sod 3.375 gm/Dextrose 110 ml @ 27.5 mls/hr Q8HR IVPB 12/31/17 15:00 01/07/18 14:59 12/31/17 15:06 Polyethylene Glycol (Miralax) 17 gm DAILYPRN PRN ORAL Constipation 12/30/17 21:30 01/29/18 21:29 Vancomycin HCl (Vanco rx to dose) 1 ea DAILY PRN MISC pharmacy to dose 12/30/17 21:45 01/29/18 21:44 Vancomycin/Sodium Chloride 250 ml @ 166.667 mls/hr Q12H IVPB 12/31/17 10:00 01/05/18 09:59 12/31/17 09:25 Assessment/Plan Assessment/Plan Abx: Levaquin x1 12/30 IV Vanco 12/30- Zosyn 12/31- Assessment: SEpsis- likely 2ry to PNA- r/o MDRO -u/a no pyuria -CXR: Possible small right pleural effusion versus thickening.Mild increased reticular markings at the lung bases nonspecific -sp cx p -Bcx p Fever/leukocytosis Recent ventilator-associated pneumonia 07/2017, s/p Rx -CXR: Lungs are asymmetric with increased density in the right lung which may be due to underlying infiltrate or pleural disease. The finding is stable. Both lungs appear hyperexpanded. -sp cx #P mirabilis (S Ancef, Ceftriaxone, Zosyn, Ertapenem; R Imipenem, Cipro/Levo), +4 Serratia marcecens (S Ceftriaxone, Ertapenem) DM HTN asthma/COPD interstitial PNA hx MDR Acinetobacter and PsA PNA hx MDR Acinetobacter UTI -ucx -u/a neg; ucx >100k Proteus ( S Zosyn, levaquin, amikacin) 07/2017; colonization Colon mass s/p hemicolectomy chronic resp failure trach/vent dependant pHTN RLE DVT pulmonary nodules [facility] resident hx of VRE colonization Plan: -Continue empiric IV Vancomycin and switch Zosyn to Meropenem pending sputum cx given high risk for MDRO. -07/24 SP Zosyn #14 -07/15 SP IV vanco #5 -07/12 SP Tamiflu #2 -07/11/17 Azithromycin x1 -f/u cx -Monitor CBC/BMP, temperatures -trach care -wound care/prevention per hospital protocol Thank you for this consultation. Will continue to follow along with you. Tianna Jolley M.D. Dec 31, 2017 19:05
[2017-12-31 20:00] VITALS: BP 97/70
[2017-12-31] MEDS: Meropenem 1 GM in NS 55 ML IVPB SCH (20:30)
[2017-12-31] MEDS ORDERED: Vancomycin 1 GM in D5W 275 ML IV SCH (23:00)
[2018-01-01] VITALS: BP 112/77
[2018-01-01] MEDS: LORazepam Inj 2mg/ml 1ml IV PRN (01:27)
[2018-01-01 04:00] VITALS: BP_SYST 109; BP_SYST 116; BP_DIAS 44; BP_DIAS 71
[2018-01-01] MEDS: Meropenem 1 GM in NS 55 ML IVPB SCH ×3 (04:30→19:43)
[2018-01-01 06:28] LABS: BASOPHILS % (AUTO) 0.6 % (0.0-2.0); EOSINOPHILS % (AUTO) 0.1 % (0.0-3.0); HEMATOCRIT 34.7 % (42.0-52.0); HEMOGLOBIN 11.5 G/DL (14.2-18.0); LYMPHOCYTES % (AUTO) 10.5 % (20.0-45.0); MEAN CORPUSCULAR VOLUME 88 FL (80-99); MONOCYTES % (AUTO) 7.9 % (1.0-10.0); NEUTROPHILS % (AUTO) 80.9 % (45.0-75.0); PLATELET COUNT 298 K/UL (150-450); RED BLOOD COUNT 3.94 M/UL (4.70-6.10); RED CELL DISTRIBUTION WIDTH 11.3 % (11.6-14.8); WHITE BLOOD COUNT 12.5 K/UL (4.8-10.8)
[2018-01-01 06:48] LABS: ANION GAP 6 mmol/L (5-15); BLOOD UREA NITROGEN 18 mg/dL (7-18); CARBON DIOXIDE 31 MMOL/L (21-32); CHLORIDE 103 MMOL/L (98-107); CREATININE 1.1 MG/DL (0.55-1.30); POTASSIUM 4.5 MMOL/L (3.5-5.1); SODIUM 139 MMOL/L (136-145)
[2018-01-01 08:00] VITALS: BP 110/67
[2018-01-01] MEDS: Pantoprazole Inj IV SCH (09:01)
[2018-01-01] MEDS: Heparin 5000 units/ml inj SUBQ SCH ×2 (09:05→21:03)
--- NOTE | 2018-01-01 10:36 | Pulmonolgy Critical Care Note ---
Critical Care - Asmt/Plan Problems: (1) Acute and chronic respiratory failure (2) Fever (3) Nosocomial pneumonia (4) Hypertension (5) Hypoalbuminemia (6) Severe sepsis Respiratory: monitor respiratory rate, adjust FIO2, CXR Cardiac: continue to monitor HR/BP Renal: F/U I&O, keep IV fluid Infectious Disease: check cultures Gastrointestinal: continue feedings/current rate Endocrine: monitor blood sugar Hematologic: monitor H/H, transfuse if hgb<8.5 Neurologic: PRN Ativan, PRN Morphine, keep patient comfortable Prophylaxis: Protonix, Heparin Notes Reviewed: commercial diver, renal 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, consultants, bilingual case manageradvertising production manager - Objective Last 24 Hour Vital Signs Date Time Temp Pulse Resp B/P (MAP) Pulse Ox O2 Delivery O2 Flow Rate FiO2 01/01/18 09:21 84 20 50 01/01/18 09:01 96 110/67 01/01/18 08:00 91 01/01/18 08:00 50 01/01/18 08:00 97.3 96 20 110/67 100 Mechanical Ventilator 50 97.3 01/01/18 07:03 82 20 50 01/01/18 04:59 89 24 50 01/01/18 04:00 98.2 77 20 116/44 100 Mechanical Ventilator 50 98.2 01/01/18 04:00 50 01/01/18 04:00 97.7 92 20 109/71 100 Mechanical Ventilator 50 97.7 01/01/18 03:45 90 01/01/18 03:27 88 22 50 01/01/18 00:46 90 25 50 01/01/18 00:00 98.1 78 20 112/77 99 Mechanical Ventilator 50 98.1 12/31/17 23:16 94 26 50 12/31/17 21:27 94 25 99 Mechanical Ventilator 50 12/31/17 21:17 50 12/31/17 21:17 94 26 99 Mechanical Ventilator 50 12/31/17 21:12 96 28 50 12/31/17 20:00 98 12/31/17 20:00 50 12/31/17 20:00 98.0 98 19 97/70 99 Mechanical Ventilator 50 98.0 12/31/17 18:58 88 25 50 12/31/17 17:40 50 12/31/17 17:33 101 24 99 Mechanical Ventilator 50 12/31/17 17:25 101 24 50 12/31/17 16:00 50 12/31/17 16:00 110 12/31/17 15:49 97.7 81 19 119/65 99 Mechanical Ventilator 50 97.7 12/31/17 15:27 100 25 50 12/31/17 13:17 99 28 50 12/31/17 12:00 96 12/31/17 12:00 50 12/31/17 11:46 98.6 91 19 111/74 100 Mechanical Ventilator 50 98.6 12/31/17 10:40 96 26 50 12/31/17 10:35 96 26 100 Mechanical Ventilator 50 Status: awake Neck: full ROM Lungs: clear Heart: HR/BP stable Abdomen: soft, non-tender Extremities: no C/C/E Micro: Microbiology Date/Time Source Procedure Growth Status 12/30/17 19:55 Blood Blood Culture - Preliminary NO GROWTH AFTER 24 HOURS Resulted 12/30/17 19:45 Blood Blood Culture - Preliminary NO GROWTH AFTER 24 HOURS Resulted 12/31/17 11:30 Sputum Gram Stain - Final Resulted 12/31/17 11:30 Sputum Sputum Culture Pending Resulted Accucheck: 166 Critical Care - Subjective ROS Limited/Unobtainable: Yes Condition: critical EKG Rhythm: Sinus Rhythm FI02: 50 Vent Support Breath Rate: 8 Vent Support Mode: IMV/SIMV Vent Tidal Volume: 600 Sputum Amount: Small PEEP: 5.0 PIP: 13 I&O: Intake and Output 12/31/17 01/01/18 19:00 07:00 Intake Total 665.834 ml 505.000 ml Output Total 650 ml 500 ml Balance 15.834 ml 5.000 ml Intake Oral 250 ml 200 ml IV Total 415.834 ml 305.000 ml Output Urine Total 650 ml 500 ml CXR: no change Labs: Laboratory Tests Test 01/01/18 04:19 01/01/18 09:10 White Blood Count 12.5 K/UL (4.8-10.8) H Red Blood Count 3.94 M/UL (4.70-6.10) L Hemoglobin 11.5 G/DL (14.2-18.0) L Hematocrit 34.7 % (42.0-52.0) L Mean Corpuscular Volume 88 FL (80-99) Mean Corpuscular Hemoglobin 29.3 PG (27.0-31.0) Mean Corpuscular Hemoglobin Concent 33.2 G/DL (32.0-36.0) Red Cell Distribution Width 11.3 % (11.6-14.8) L Platelet Count 298 K/UL (150-450) Mean Platelet Volume 6.6 FL (6.5-10.1) Neutrophils (%) (Auto) 80.9 % (45.0-75.0) H Lymphocytes (%) (Auto) 10.5 % (20.0-45.0) L Monocytes (%) (Auto) 7.9 % (1.0-10.0) Eosinophils (%) (Auto) 0.1 % (0.0-3.0) Basophils (%) (Auto) 0.6 % (0.0-2.0) Sodium Level 139 MMOL/L (136-145) Potassium Level 4.5 MMOL/L (3.5-5.1) Chloride Level 103 MMOL/L (98-107) Carbon Dioxide Level 31 MMOL/L (21-32) Anion Gap 6 mmol/L (5-15) Blood Urea Nitrogen 18 mg/dL (7-18) Creatinine 1.1 MG/DL (0.55-1.30) Estimat Glomerular Filtration Rate > 60 mL/min (>60) Glucose Level 115 MG/DL (74-106) H Calcium Level 9.0 MG/DL (8.5-10.1) Vancomycin Level Trough 11.8 ug/mL (5.0-12.0) Demetrius Andrade MD Jan 01, 2018 10:36
[2018-01-01] MEDS ORDERED: Vancomycin 1250mg/D5W 250ml IVPB ONE (11:00)
[2018-01-01 12:00] VITALS: BP 118/79
--- NOTE | 2018-01-01 13:36 | Infectious Diseases Prog Note ---
Assessment/Plan Assessment/Plan Assessment: SEpsis- likely 2ry to PNA- r/o MDRO -u/a no pyuria -CXR: Possible small right pleural effusion versus thickening.Mild increased reticular markings at the lung bases nonspecific -sp cx p Gram positive bacteremia- real vs contaminant -12/30 Bcx 2/4 GPC CLusters Fever/leukocytosis Recent ventilator-associated pneumonia 07/2017, s/p Rx -CXR: Lungs are asymmetric with increased density in the right lung which may be due to underlying infiltrate or pleural disease. The finding is stable. Both lungs appear hyperexpanded. 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 -12/30 SP Levaquin x1, Zosyn #1 -07/24 SP Zosyn #14 -07/15 SP IV vanco #5 -07/12 SP Tamiflu #2 -07/11/17 Azithromycin x1 -Bcx x2 -f/u cx -Monitor CBC/BMP, temperatures -trach care -wound care/prevention per hospital protocol -CBC, CMP, CXR am Thank you for this consultation. Will continue to follow along with you. Subjective Allergies: Coded Allergies: No Known Allergies (Unverified , 06/17/16) Subjective afebrile in >24hr leukocytosis bcx +gpc clusters fio2 50% Objective Vital Signs Last 24 Hour Vital Signs Date Time Temp Pulse Resp B/P (MAP) Pulse Ox O2 Delivery O2 Flow Rate FiO2 01/01/18 12:33 88 23 50 01/01/18 12:00 97.6 104 22 118/79 100 Mechanical Ventilator 50 97.6 01/01/18 12:00 50 01/01/18 12:00 97 01/01/18 10:47 86 20 50 01/01/18 09:21 84 20 50 01/01/18 09:01 96 110/67 01/01/18 08:00 91 01/01/18 08:00 50 01/01/18 08:00 97.3 96 20 110/67 100 Mechanical Ventilator 50 97.3 01/01/18 07:03 82 20 50 01/01/18 04:59 89 24 50 01/01/18 04:00 98.2 77 20 116/44 100 Mechanical Ventilator 50 98.2 01/01/18 04:00 50 01/01/18 04:00 97.7 92 20 109/71 100 Mechanical Ventilator 50 97.7 01/01/18 03:45 90 01/01/18 03:27 88 22 50 01/01/18 00:46 90 25 50 01/01/18 00:00 98.1 78 20 112/77 99 Mechanical Ventilator 50 98.1 12/31/17 23:16 94 26 50 12/31/17 21:27 94 25 99 Mechanical Ventilator 50 12/31/17 21:17 50 12/31/17 21:17 94 26 99 Mechanical Ventilator 50 12/31/17 21:12 96 28 50 12/31/17 20:00 98 12/31/17 20:00 50 12/31/17 20:00 98.0 98 19 97/70 99 Mechanical Ventilator 50 98.0 12/31/17 18:58 88 25 50 12/31/17 17:40 50 12/31/17 17:33 101 24 99 Mechanical Ventilator 50 12/31/17 17:25 101 24 50 12/31/17 16:00 50 12/31/17 16:00 110 12/31/17 15:49 97.7 81 19 119/65 99 Mechanical Ventilator 50 97.7 12/31/17 15:27 100 25 50 Height (Feet): 6 Height (Inches): 3.00 Weight (Pounds): 176 Objective GENERAL: Calm in bed, oriented x3, trach vented, nonverbal. CARDIOVASCULAR: No murmur. LUNGS: Poor air exchange. ABDOMEN: Bowel sounds distant. EXTREMITIES: No cyanosis, clubbing, or edema. NEUROLOGIC: The patient moves all extremities, slightly weak, as noted trach in place. Slightly weak. Microbiology Date/Time Source Procedure Growth Status 12/30/17 19:55 Blood Blood Culture - Preliminary Resulted 12/30/17 19:45 Blood Blood Culture - Preliminary Resulted 12/31/17 11:30 Sputum Gram Stain - Final Resulted 12/31/17 11:30 Sputum Sputum Culture Pending Resulted Laboratory Tests Test 01/01/18 04:19 01/01/18 09:10 White Blood Count 12.5 K/UL (4.8-10.8) H Red Blood Count 3.94 M/UL (4.70-6.10) L Hemoglobin 11.5 G/DL (14.2-18.0) L Hematocrit 34.7 % (42.0-52.0) L Mean Corpuscular Volume 88 FL (80-99) Mean Corpuscular Hemoglobin 29.3 PG (27.0-31.0) Mean Corpuscular Hemoglobin Concent 33.2 G/DL (32.0-36.0) Red Cell Distribution Width 11.3 % (11.6-14.8) L Platelet Count 298 K/UL (150-450) Mean Platelet Volume 6.6 FL (6.5-10.1) Neutrophils (%) (Auto) 80.9 % (45.0-75.0) H Lymphocytes (%) (Auto) 10.5 % (20.0-45.0) L Monocytes (%) (Auto) 7.9 % (1.0-10.0) Eosinophils (%) (Auto) 0.1 % (0.0-3.0) Basophils (%) (Auto) 0.6 % (0.0-2.0) Sodium Level 139 MMOL/L (136-145) Potassium Level 4.5 MMOL/L (3.5-5.1) Chloride Level 103 MMOL/L (98-107) Carbon Dioxide Level 31 MMOL/L (21-32) Anion Gap 6 mmol/L (5-15) Blood Urea Nitrogen 18 mg/dL (7-18) Creatinine 1.1 MG/DL (0.55-1.30) Estimat Glomerular Filtration Rate > 60 mL/min (>60) Glucose Level 115 MG/DL (74-106) H Calcium Level 9.0 MG/DL (8.5-10.1) Vancomycin Level Trough 11.8 ug/mL (5.0-12.0) Current Medications Medications (Trade) Dose Ordered Sig/Shraddha Route PRN Reason Start Time Stop Time Status Last Admin Dose Admin Acetaminophen (Tylenol) 650 mg Q4H PRN ORAL FEVER 12/30/17 21:30 01/29/18 21:29 12/30/17 23:02 Albuterol/ Ipratropium (Albuterol/ Ipratropium) 3 ml Q4H PRN HHN Shortness of Breath 12/30/17 21:30 01/04/18 21:29 12/31/17 21:17 Amlodipine Besylate (Norvasc) 5 mg DAILY ORAL 12/31/17 09:00 01/30/18 08:59 01/01/18 09:01 Dextrose (Dextrose 50%) 25 ml STAT PRN IV Hypoglycemia 12/30/17 21:30 01/29/18 21:29 Heparin Sodium (Porcine) (Heparin 5000 units/ml) 5,000 units EVERY 12 HOURS SUBQ 12/31/17 09:00 01/30/18 08:59 01/01/18 09:05 Lorazepam (Ativan 2mg/ml 1ml) 2 mg Q2H PRN IV For Anxiety 12/30/17 21:30 01/06/18 21:29 01/01/18 01:27 Meropenem 1 gm/ Sodium Chloride 55 ml @ 110 mls/hr Q8H IVPB 12/31/17 20:30 01/05/18 20:29 01/01/18 04:30 Morphine Sulfate (Morphine Sulfate) 4 mg Q4H PRN IVP Severe Pain (Pain Scale 7-10) 12/30/17 21:30 01/06/18 21:29 Ondansetron HCl (Zofran) 4 mg Q6H PRN IVP Nausea & Vomiting 12/30/17 21:30 01/29/18 21:29 Pantoprazole (Protonix) 40 mg DAILY IV 12/31/17 09:00 01/30/18 08:59 01/01/18 09:01 Polyethylene Glycol (Miralax) 17 gm DAILYPRN PRN ORAL Constipation 12/30/17 21:30 01/29/18 21:29 Vancomycin HCl (Vanco rx to dose) 1 ea DAILY PRN MISC pharmacy to dose 12/30/17 21:45 01/29/18 21:44 Vancomycin HCl 1 gm/Dextrose 275 ml @ 183.708 mls/hr Q12HR@1100,2300 IVPB 01/01/18 23:00 01/06/18 22:59 Tianna Jolley M.D. Jan 01, 2018 13:36
--- NOTE | 2018-01-01 14:42 | General Progress Note ---
Assessment/Plan Problem List: (1) HTN (hypertension) ICD Codes: I10 - Essential (primary) hypertension SNOMED: 05873828 (2) Diabetes ICD Codes: E11.9 - Type 2 diabetes mellitus without complications SNOMED: 55962898 (3) Sepsis ICD Codes: A41.9 - Sepsis, unspecified organism SNOMED: 14193987 (4) Respiratory failure ICD Codes: J96.90 - Respiratory failure, unspecified, unspecified whether with hypoxia or hypercapnia SNOMED: 623387204 (5) SOB (shortness of breath) ICD Codes: R06.02 - Shortness of breath SNOMED: 892738459 (6) DVT (deep venous thrombosis) ICD Codes: I82.409 - Acute embolism and thrombosis of unspecified deep veins of unspecified lower extremity SNOMED: 487136866 Status: unchanged Assessment/Plan vent abx cbc bmp am Subjective Constitutional: Reports: weakness Allergies: Coded Allergies: No Known Allergies (Unverified , 06/17/16) All Systems: reviewed and negative except above Subjective trach vent asleep Objective Last 24 Hour Vital Signs Date Time Temp Pulse Resp B/P (MAP) Pulse Ox O2 Delivery O2 Flow Rate FiO2 01/01/18 12:33 88 23 50 01/01/18 12:00 97.6 104 22 118/79 100 Mechanical Ventilator 50 97.6 01/01/18 12:00 50 01/01/18 12:00 97 01/01/18 10:47 86 20 50 01/01/18 09:21 84 20 50 01/01/18 09:01 96 110/67 01/01/18 08:00 91 01/01/18 08:00 50 01/01/18 08:00 97.3 96 20 110/67 100 Mechanical Ventilator 50 97.3 01/01/18 07:03 82 20 50 01/01/18 04:59 89 24 50 01/01/18 04:00 98.2 77 20 116/44 100 Mechanical Ventilator 50 98.2 01/01/18 04:00 50 01/01/18 04:00 97.7 92 20 109/71 100 Mechanical Ventilator 50 97.7 01/01/18 03:45 90 01/01/18 03:27 88 22 50 01/01/18 00:46 90 25 50 01/01/18 00:00 98.1 78 20 112/77 99 Mechanical Ventilator 50 98.1 12/31/17 23:16 94 26 50 12/31/17 21:27 94 25 99 Mechanical Ventilator 50 12/31/17 21:17 50 12/31/17 21:17 94 26 99 Mechanical Ventilator 50 12/31/17 21:12 96 28 50 12/31/17 20:00 98 12/31/17 20:00 50 12/31/17 20:00 98.0 98 19 97/70 99 Mechanical Ventilator 50 98.0 12/31/17 18:58 88 25 50 12/31/17 17:40 50 12/31/17 17:33 101 24 99 Mechanical Ventilator 50 12/31/17 17:25 101 24 50 12/31/17 16:00 50 12/31/17 16:00 110 12/31/17 15:49 97.7 81 19 119/65 99 Mechanical Ventilator 50 97.7 12/31/17 15:27 100 25 50 Intake and Output 12/31/17 01/01/18 19:00 07:00 Intake Total 665.834 ml 505.000 ml Output Total 650 ml 500 ml Balance 15.834 ml 5.000 ml Intake Oral 250 ml 200 ml IV Total 415.834 ml 305.000 ml Output Urine Total 650 ml 500 ml Laboratory Tests 01/01/18 04:19: White Blood Count 12.5H, Red Blood Count 3.94L, Hemoglobin 11.5L, Hematocrit 34.7L, Mean Corpuscular Volume 88, Mean Corpuscular Hemoglobin 29.3, Mean Corpuscular Hemoglobin Concent 33.2, Red Cell Distribution Width 11.3L, Platelet Count 298, Mean Platelet Volume 6.6, Neutrophils (%) (Auto) 80.9H, Lymphocytes (%) (Auto) 10.5L, Monocytes (%) (Auto) 7.9, Eosinophils (%) (Auto) 0.1, Basophils (%) (Auto) 0.6, Sodium Level 139, Potassium Level 4.5, Chloride Level 103, Carbon Dioxide Level 31, Anion Gap 6, Blood Urea Nitrogen 18, Creatinine 1.1, Estimat Glomerular Filtration Rate > 60, Glucose Level 115H, Calcium Level 9.0 01/01/18 09:10: Vancomycin Level Trough 11.8 Height (Feet): 6 Height (Inches): 3.00 Weight (Pounds): 176 General Appearance: lethargic EENT: normal ENT inspection Neck: normal alignment Cardiovascular: normal peripheral pulses, normal rate, regular rhythm Respiratory/Chest: chest wall non-tender, lungs clear, normal breath sounds Abdomen: normal bowel sounds, non tender, soft Extremities: normal inspection Edema: no edema noted Arm (L), no edema noted Arm (R), no edema noted Leg (L), no edema noted Leg (R), no edema noted Pedal (L), no edema noted Pedal (R), no edema noted Generalized Neurologic: motor weakness Skin: normal pigmentation, warm/dry Elan Petersen DO Jan 01, 2018 14:42
[2018-01-01] MEDS: Albuterol/Ipratropium 3ml neb HHN PRN ×2 (14:52→19:08)
[2018-01-01 16:00] VITALS: BP 115/77
[2018-01-01 20:00] VITALS: BP 106/64
[2018-01-01] MEDS: Vancomycin 1gm/D5W 275ml IVPB SCH ×2 (22:51)
[2018-01-02] VITALS: BP 152/55
[2018-01-02] MEDS: Albuterol/Ipratropium 3ml neb HHN PRN ×4 (02:49→19:01)
[2018-01-02] MEDS: Meropenem 1 GM in NS 55 ML IVPB SCH ×3 (03:51→20:30)
[2018-01-02 04:00] VITALS: BP 101/67
[2018-01-02 07:44] LABS: BASOPHILS % (AUTO) 1.3 % (0.0-2.0); EOSINOPHILS % (AUTO) 1.3 % (0.0-3.0); HEMATOCRIT 35.4 % (42.0-52.0); HEMOGLOBIN 11.3 G/DL (14.2-18.0); LYMPHOCYTES % (AUTO) 12.3 % (20.0-45.0); MEAN CORPUSCULAR VOLUME 89 FL (80-99); PLATELET COUNT 325 K/UL (150-450); RED BLOOD COUNT 3.97 M/UL (4.70-6.10); RED CELL DISTRIBUTION WIDTH 11.3 % (11.6-14.8); WHITE BLOOD COUNT 9.5 K/UL (4.8-10.8)
[2018-01-02 07:48] LABS: ALANINE AMINOTRANSFERASE 39 U/L (12-78); ALBUMIN 2.6 G/DL (3.4-5.0); ALBUMIN/GLOBULIN RATIO 0.5 (1.0-2.7); ALKALINE PHOSPHATASE 107 U/L (46-116); ANION GAP 3 mmol/L (5-15); ASPARTATE AMINO TRANSFERASE 21 U/L (15-37); BILIRUBIN,TOTAL 0.5 MG/DL (0.2-1.0); BLOOD UREA NITROGEN 12 mg/dL (7-18); CARBON DIOXIDE 32 MMOL/L (21-32); CHLORIDE 103 MMOL/L (98-107); CREATININE 1.1 MG/DL (0.55-1.30); POTASSIUM 3.9 MMOL/L (3.5-5.1); SODIUM 138 MMOL/L (136-145)
[2018-01-02 08:00] VITALS: BP 124/58
[2018-01-02] MEDS: Pantoprazole Inj IV SCH (08:52)
[2018-01-02] MEDS: Heparin 5000 units/ml inj SUBQ SCH ×2 (08:54→20:57)
[2018-01-02] MEDS: Vancomycin 1gm/D5W 275ml IVPB SCH ×4 (10:47→22:10)
--- NOTE | 2018-01-02 11:27 | Pulmonolgy Critical Care Note ---
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: building maintenance supervisor, renal 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, consultants, outpatient case managerbusiness strategy manager - Objective Last 24 Hour Vital Signs Date Time Temp Pulse Resp B/P (MAP) Pulse Ox O2 Delivery O2 Flow Rate FiO2 01/02/18 09:22 107 27 50 01/02/18 08:52 115 124/58 01/02/18 08:00 60 01/02/18 08:00 98.8 115 35 124/58 100 Mechanical Ventilator 60 98.8 01/02/18 07:52 115 01/02/18 07:11 96 20 99 Mechanical Ventilator 50 01/02/18 07:06 50 01/02/18 07:05 100 19 100 Mechanical Ventilator 50 01/02/18 07:02 100 21 50 01/02/18 04:48 93 23 50 01/02/18 04:00 101 01/02/18 04:00 60 01/02/18 04:00 97.9 102 21 101/67 98 Mechanical Ventilator 60 97.9 01/02/18 02:50 50 01/02/18 02:50 104 21 99 Mechanical Ventilator 50 01/02/18 02:50 98 21 50 01/02/18 01:27 94 21 50 01/02/18 00:00 60 01/02/18 00:00 99.1 79 28 152/55 99 Mechanical Ventilator 35 99.1 01/02/18 00:00 99 01/01/18 23:10 102 22 50 01/01/18 20:49 97 26 50 01/01/18 20:00 50 01/01/18 20:00 107 01/01/18 20:00 97.9 104 28 106/64 99 Mechanical Ventilator 50 97.9 01/01/18 19:23 105 22 98 Mechanical Ventilator 50 01/01/18 19:12 50 01/01/18 19:11 111 23 99 Mechanical Ventilator 50 01/01/18 19:11 107 01/01/18 18:59 110 23 50 01/01/18 17:05 100 23 50 01/01/18 16:00 105 01/01/18 16:00 50 01/01/18 16:00 98.4 98 20 115/77 100 Mechanical Ventilator 50 98.4 01/01/18 14:52 101 22 100 Mechanical Ventilator 50 01/01/18 14:51 101 21 50 01/01/18 12:33 88 23 50 01/01/18 12:00 97.6 104 22 118/79 100 Mechanical Ventilator 50 97.6 01/01/18 12:00 50 01/01/18 12:00 97 Status: awake Condition: critical HEENT: atraumatic Lungs: chest wall tender Heart: HR/BP unstable Abdomen: non-tender Decubiti: location Micro: Microbiology Date/Time Source Procedure Growth Status 12/30/17 19:55 Blood Blood Culture - Preliminary Gram Negative Bacillus 1 Resulted 12/30/17 19:45 Blood Blood Culture - Preliminary Staphylococcus Sp Coag Neg Resulted 12/31/17 11:30 Sputum Gram Stain - Final Resulted 12/31/17 11:30 Sputum Culture - Preliminary Staphylococcus Aureus Resulted 12/30/17 21:21 Nasal Nares MRSA Culture - Final Staphylococcus Aureus - Mrsa Complete 12/30/17 21:21 Rectum VRE Culture - Final NO VANCOMYCIN RESISTANT ENTEROCOCCUS ... Complete 12/30/17 21:21 Rectum - Final NO CARBAPENEM-RESISTANT ENTEROBACTERI... Complete Accucheck: 166 Critical Care - Subjective ROS Limited/Unobtainable: No Condition: critical EKG Rhythm: V-Paced FI02: 50 Vent Support Breath Rate: 8 Vent Support Mode: IMV/SIMV Vent Tidal Volume: 600 Sputum Amount: Small PEEP: 5.0 PIP: 14 I&O: Intake and Output 01/01/18 01/02/18 19:00 07:00 Intake Total 321.667 ml 663.708 ml Output Total 200 ml 400 ml Balance 121.667 ml 263.708 ml Intake Oral 100 ml 480 ml IV Total 221.667 ml 183.708 ml Output Urine Total 200 ml 400 ml # Voids 1 Labs: Laboratory Tests Test 01/02/18 05:42 White Blood Count 9.5 K/UL (4.8-10.8) Red Blood Count 3.97 M/UL (4.70-6.10) L Hemoglobin 11.3 G/DL (14.2-18.0) L Hematocrit 35.4 % (42.0-52.0) L Mean Corpuscular Volume 89 FL (80-99) Mean Corpuscular Hemoglobin 28.5 PG (27.0-31.0) Mean Corpuscular Hemoglobin Concent 31.9 G/DL (32.0-36.0) L Red Cell Distribution Width 11.3 % (11.6-14.8) L Platelet Count 325 K/UL (150-450) Mean Platelet Volume 6.3 FL (6.5-10.1) L Neutrophils (%) (Auto) 77.0 % (45.0-75.0) H Lymphocytes (%) (Auto) 12.3 % (20.0-45.0) L Monocytes (%) (Auto) 8.0 % (1.0-10.0) Eosinophils (%) (Auto) 1.3 % (0.0-3.0) Basophils (%) (Auto) 1.3 % (0.0-2.0) Sodium Level 138 MMOL/L (136-145) Potassium Level 3.9 MMOL/L (3.5-5.1) Chloride Level 103 MMOL/L (98-107) Carbon Dioxide Level 32 MMOL/L (21-32) Anion Gap 3 mmol/L (5-15) L Blood Urea Nitrogen 12 mg/dL (7-18) Creatinine 1.1 MG/DL (0.55-1.30) Estimat Glomerular Filtration Rate > 60 mL/min (>60) Glucose Level 118 MG/DL (74-106) H Calcium Level 9.0 MG/DL (8.5-10.1) Total Bilirubin 0.5 MG/DL (0.2-1.0) Aspartate Amino Transf (AST/SGOT) 21 U/L (15-37) Alanine Aminotransferase (ALT/SGPT) 39 U/L (12-78) Alkaline Phosphatase 107 U/L (46-116) Total Protein 7.6 G/DL (6.4-8.2) Albumin 2.6 G/DL (3.4-5.0) L Globulin 5.0 g/dL Albumin/Globulin Ratio 0.5 (1.0-2.7) L Zakateryna,Mirali MD Jan 02, 2018 11:27
[2018-01-02 12:00] VITALS: BP 110/69
--- NOTE | 2018-01-02 12:24 | Diagnostic Imaging Report ---
Indication: Dyspnea Technique: One view of the chest Comparison: 12/30/2017 Findings: Lungs and pleural spaces are clear. Heart size is normal. Aorta is tortuous. There is a tracheostomy. Previously demonstrated right costophrenic angle blunting in particular basilar markings are less striking currently Impression: No acute process
[2018-01-02] MEDS ORDERED: Gastrograffin 30ml ORAL PRN (13:00)
[2018-01-02] MEDS ORDERED: Gastrograffin 30ml RECTAL PRN (13:00)
[2018-01-02] MEDS ORDERED: Isovue-300 100ml vial INJ PRN (13:00)
--- NOTE | 2018-01-02 13:01 | Infectious Diseases Prog Note ---
Assessment/Plan Assessment/Plan Assessment: SEpsis- likely 2ry to PNA and now gram neg bacteremia- r/o intraabdominal process -u/a no pyuria -CXR: Possible small right pleural effusion versus thickening.Mild increased reticular markings at the lung bases nonspecific -sp cx S. aureus CONS bacteremia, likely contaminant Gram negative bacteremia- ?source- u/a was fairly normal- will repeat u/a and uCx; r/o intraabdominal source -12/30 Bcx 2/2 GPC ConS (1st set); 2nd set 1/ GNRs, GPC clusters- - Bcx p Fever/leukocytosis; improving Recent ventilator-associated pneumonia 07/2017, s/p Rx -CXR: Lungs are asymmetric with increased density in the right lung which may be due to underlying infiltrate or pleural disease. The finding is stable. Both lungs appear hyperexpanded. 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 aureus sensitivity -Continue Meropenem abx d#4 pending Gram negative in blood -12/30 SP Levaquin x1, Zosyn #1 -07/24 SP Zosyn #14 -07/15 SP IV vanco #5 -07/12 SP Tamiflu #2 -07/11/17 Azithromycin x1 -f/u repeat Bcx x2 -CT abd/p IV and PO contrast -f/u cx -Monitor CBC/BMP, temperatures -trach care -wound care/prevention per hospital protocol -CBC, CMP, CXR am Thank you for this consultation. Will continue to follow along with you. Subjective Allergies: Coded Allergies: No Known Allergies (Unverified , 06/17/16) Subjective afebrile in >48 hr leukocytosis resolved bcx +gpc clusters and Gnrs fio2 60% Objective Vital Signs Last 24 Hour Vital Signs Date Time Temp Pulse Resp B/P (MAP) Pulse Ox O2 Delivery O2 Flow Rate FiO2 01/02/18 12:00 60 01/02/18 11:05 95 23 50 01/02/18 09:22 107 27 50 01/02/18 08:52 115 124/58 01/02/18 08:00 60 01/02/18 08:00 98.8 115 35 124/58 100 Mechanical Ventilator 60 98.8 01/02/18 07:52 115 01/02/18 07:11 96 20 99 Mechanical Ventilator 50 01/02/18 07:06 50 01/02/18 07:05 100 19 100 Mechanical Ventilator 50 01/02/18 07:02 100 21 50 01/02/18 04:48 93 23 50 01/02/18 04:00 101 01/02/18 04:00 60 01/02/18 04:00 97.9 102 21 101/67 98 Mechanical Ventilator 60 97.9 01/02/18 02:50 50 01/02/18 02:50 104 21 99 Mechanical Ventilator 50 01/02/18 02:50 98 21 50 01/02/18 01:27 94 21 50 01/02/18 00:00 60 01/02/18 00:00 99.1 79 28 152/55 99 Mechanical Ventilator 35 99.1 01/02/18 00:00 99 01/01/18 23:10 102 22 50 01/01/18 20:49 97 26 50 01/01/18 20:00 50 01/01/18 20:00 107 01/01/18 20:00 97.9 104 28 106/64 99 Mechanical Ventilator 50 97.9 01/01/18 19:23 105 22 98 Mechanical Ventilator 50 01/01/18 19:12 50 01/01/18 19:11 111 23 99 Mechanical Ventilator 50 01/01/18 19:11 107 01/01/18 18:59 110 23 50 01/01/18 17:05 100 23 50 01/01/18 16:00 105 01/01/18 16:00 50 01/01/18 16:00 98.4 98 20 115/77 100 Mechanical Ventilator 50 98.4 01/01/18 14:52 101 22 100 Mechanical Ventilator 50 01/01/18 14:51 101 21 50 Height (Feet): 6 Height (Inches): 3.00 Weight (Pounds): 176 Objective GENERAL: Calm in bed, oriented x3, trach vented, nonverbal. CARDIOVASCULAR: No murmur. LUNGS: Poor air exchange. ABDOMEN: Bowel sounds distant. EXTREMITIES: No cyanosis, clubbing, or edema. NEUROLOGIC: The patient moves all extremities, slightly weak, as noted trach in place. Slightly weak. Microbiology Date/Time Source Procedure Growth Status 12/30/17 19:55 Blood Blood Culture - Preliminary Gram Negative Bacillus 1 Resulted 12/30/17 19:45 Blood Blood Culture - Preliminary Staphylococcus Sp Coag Neg Resulted 12/31/17 11:30 Sputum Gram Stain - Final Resulted 12/31/17 11:30 Sputum Culture - Preliminary Staphylococcus Aureus Resulted 12/30/17 21:21 Nasal Nares MRSA Culture - Final Staphylococcus Aureus - Mrsa Complete 12/30/17 21:21 Rectum VRE Culture - Final NO VANCOMYCIN RESISTANT ENTEROCOCCUS ... Complete 12/30/17 21:21 Rectum - Final NO CARBAPENEM-RESISTANT ENTEROBACTERI... Complete Laboratory Tests Test 01/02/18 05:42 White Blood Count 9.5 K/UL (4.8-10.8) Red Blood Count 3.97 M/UL (4.70-6.10) L Hemoglobin 11.3 G/DL (14.2-18.0) L Hematocrit 35.4 % (42.0-52.0) L Mean Corpuscular Volume 89 FL (80-99) Mean Corpuscular Hemoglobin 28.5 PG (27.0-31.0) Mean Corpuscular Hemoglobin Concent 31.9 G/DL (32.0-36.0) L Red Cell Distribution Width 11.3 % (11.6-14.8) L Platelet Count 325 K/UL (150-450) Mean Platelet Volume 6.3 FL (6.5-10.1) L Neutrophils (%) (Auto) 77.0 % (45.0-75.0) H Lymphocytes (%) (Auto) 12.3 % (20.0-45.0) L Monocytes (%) (Auto) 8.0 % (1.0-10.0) Eosinophils (%) (Auto) 1.3 % (0.0-3.0) Basophils (%) (Auto) 1.3 % (0.0-2.0) Sodium Level 138 MMOL/L (136-145) Potassium Level 3.9 MMOL/L (3.5-5.1) Chloride Level 103 MMOL/L (98-107) Carbon Dioxide Level 32 MMOL/L (21-32) Anion Gap 3 mmol/L (5-15) L Blood Urea Nitrogen 12 mg/dL (7-18) Creatinine 1.1 MG/DL (0.55-1.30) Estimat Glomerular Filtration Rate > 60 mL/min (>60) Glucose Level 118 MG/DL (74-106) H Calcium Level 9.0 MG/DL (8.5-10.1) Total Bilirubin 0.5 MG/DL (0.2-1.0) Aspartate Amino Transf (AST/SGOT) 21 U/L (15-37) Alanine Aminotransferase (ALT/SGPT) 39 U/L (12-78) Alkaline Phosphatase 107 U/L (46-116) Total Protein 7.6 G/DL (6.4-8.2) Albumin 2.6 G/DL (3.4-5.0) L Globulin 5.0 g/dL Albumin/Globulin Ratio 0.5 (1.0-2.7) L Current Medications Medications (Trade) Dose Ordered Sig/Shraddha Route PRN Reason Start Time Stop Time Status Last Admin Dose Admin Acetaminophen (Tylenol) 650 mg Q4H PRN ORAL FEVER 12/30/17 21:30 01/29/18 21:29 12/30/17 23:02 Albuterol/ Ipratropium (Albuterol/ Ipratropium) 3 ml Q4H PRN HHN Shortness of Breath 12/30/17 21:30 01/04/18 21:29 01/02/18 07:09 Amlodipine Besylate (Norvasc) 5 mg DAILY ORAL 12/31/17 09:00 01/30/18 08:59 01/02/18 08:52 Dextrose (Dextrose 50%) 25 ml STAT PRN IV Hypoglycemia 12/30/17 21:30 01/29/18 21:29 Heparin Sodium (Porcine) (Heparin 5000 units/ml) 5,000 units EVERY 12 HOURS SUBQ 12/31/17 09:00 01/30/18 08:59 01/02/18 08:54 Lorazepam (Ativan 2mg/ml 1ml) 2 mg Q2H PRN IV For Anxiety 12/30/17 21:30 01/06/18 21:29 01/01/18 01:27 Meropenem 1 gm/ Sodium Chloride 55 ml @ 110 mls/hr Q8H IVPB 12/31/17 20:30 01/05/18 20:29 01/02/18 12:31 Morphine Sulfate (Morphine Sulfate) 4 mg Q4H PRN IVP Severe Pain (Pain Scale 7-10) 12/30/17 21:30 01/06/18 21:29 Ondansetron HCl (Zofran) 4 mg Q6H PRN IVP Nausea & Vomiting 12/30/17 21:30 01/29/18 21:29 Pantoprazole (Protonix) 40 mg DAILY IV 12/31/17 09:00 01/30/18 08:59 01/02/18 08:52 Polyethylene Glycol (Miralax) 17 gm DAILYPRN PRN ORAL Constipation 12/30/17 21:30 01/29/18 21:29 Vancomycin HCl (Vanco rx to dose) 1 ea DAILY PRN MISC pharmacy to dose 12/30/17 21:45 01/29/18 21:44 Vancomycin HCl 1 gm/Dextrose 275 ml @ 183.708 mls/hr Q12HR@1100,2300 IVPB 01/01/18 23:00 01/06/18 22:59 01/02/18 10:47 Tianna Jolley M.D. Jan 02, 2018 13:01
--- NOTE | 2018-01-02 14:05 | General Progress Note ---
Assessment/Plan Problem List: (1) HTN (hypertension) ICD Codes: I10 - Essential (primary) hypertension SNOMED: 24074731 (2) Diabetes ICD Codes: E11.9 - Type 2 diabetes mellitus without complications SNOMED: 11315105 (3) Sepsis ICD Codes: A41.9 - Sepsis, unspecified organism SNOMED: 60547816 (4) Respiratory failure ICD Codes: J96.90 - Respiratory failure, unspecified, unspecified whether with hypoxia or hypercapnia SNOMED: 719516392 (5) SOB (shortness of breath) ICD Codes: R06.02 - Shortness of breath SNOMED: 802630830 (6) DVT (deep venous thrombosis) ICD Codes: I82.409 - Acute embolism and thrombosis of unspecified deep veins of unspecified lower extremity SNOMED: 415819714 Status: stable, progressing Assessment/Plan vent abx cbc bmp am promise ltach eval Subjective Constitutional: Reports: weakness Allergies: Coded Allergies: No Known Allergies (Unverified , 06/17/16) Subjective trach vent asleep Objective Last 24 Hour Vital Signs Date Time Temp Pulse Resp B/P (MAP) Pulse Ox O2 Delivery O2 Flow Rate FiO2 01/02/18 13:13 99 24 99 Mechanical Ventilator 50 01/02/18 13:08 60 01/02/18 13:07 104 21 99 Mechanical Ventilator 60 01/02/18 13:04 104 24 50 01/02/18 12:00 60 01/02/18 12:00 98.0 102 37 110/69 100 Mechanical Ventilator 60 98.0 01/02/18 12:00 94 01/02/18 11:05 95 23 50 01/02/18 09:22 107 27 50 01/02/18 08:52 115 124/58 01/02/18 08:00 60 01/02/18 08:00 98.8 115 35 124/58 100 Mechanical Ventilator 60 98.8 01/02/18 07:52 115 01/02/18 07:11 96 20 99 Mechanical Ventilator 50 01/02/18 07:06 50 01/02/18 07:05 100 19 100 Mechanical Ventilator 50 01/02/18 07:02 100 21 50 01/02/18 04:48 93 23 50 01/02/18 04:00 101 01/02/18 04:00 60 01/02/18 04:00 97.9 102 21 101/67 98 Mechanical Ventilator 60 97.9 01/02/18 02:50 50 01/02/18 02:50 104 21 99 Mechanical Ventilator 50 01/02/18 02:50 98 21 50 01/02/18 01:27 94 21 50 01/02/18 00:00 60 01/02/18 00:00 99.1 79 28 152/55 99 Mechanical Ventilator 35 99.1 01/02/18 00:00 99 01/01/18 23:10 102 22 50 01/01/18 20:49 97 26 50 01/01/18 20:00 50 01/01/18 20:00 107 01/01/18 20:00 97.9 104 28 106/64 99 Mechanical Ventilator 50 97.9 01/01/18 19:23 105 22 98 Mechanical Ventilator 50 01/01/18 19:12 50 01/01/18 19:11 111 23 99 Mechanical Ventilator 50 01/01/18 19:11 107 01/01/18 18:59 110 23 50 01/01/18 17:05 100 23 50 01/01/18 16:00 105 01/01/18 16:00 50 01/01/18 16:00 98.4 98 20 115/77 100 Mechanical Ventilator 50 98.4 01/01/18 14:52 101 22 100 Mechanical Ventilator 50 01/01/18 14:51 101 21 50 Intake and Output 01/01/18 01/02/18 19:00 07:00 Intake Total 321.667 ml 663.708 ml Output Total 200 ml 400 ml Balance 121.667 ml 263.708 ml Intake Oral 100 ml 480 ml IV Total 221.667 ml 183.708 ml Output Urine Total 200 ml 400 ml # Voids 1 Laboratory Tests 01/02/18 05:42: White Blood Count 9.5, Red Blood Count 3.97L, Hemoglobin 11.3L, Hematocrit 35.4L , Mean Corpuscular Volume 89, Mean Corpuscular Hemoglobin 28.5, Mean Corpuscular Hemoglobin Concent 31.9L, Red Cell Distribution Width 11.3L, Platelet Count 325, Mean Platelet Volume 6.3L, Neutrophils (%) (Auto) 77.0H, Lymphocytes (%) (Auto) 12.3L, Monocytes (%) (Auto) 8.0, Eosinophils (%) (Auto) 1.3, Basophils (%) (Auto) 1.3, Sodium Level 138, Potassium Level 3.9, Chloride Level 103, Carbon Dioxide Level 32, Anion Gap 3L, Blood Urea Nitrogen 12, Creatinine 1.1, Estimat Glomerular Filtration Rate > 60, Glucose Level 118H, Calcium Level 9.0, Total Bilirubin 0.5, Aspartate Amino Transf (AST/SGOT) 21, Alanine Aminotransferase (ALT/SGPT) 39, Alkaline Phosphatase 107, Total Protein 7.6, Albumin 2.6L, Globulin 5.0, Albumin/Globulin Ratio 0.5L Height (Feet): 6 Height (Inches): 3.00 Weight (Pounds): 176 General Appearance: lethargic EENT: normal ENT inspection Neck: normal alignment Cardiovascular: normal peripheral pulses, normal rate, regular rhythm Respiratory/Chest: chest wall non-tender, lungs clear, normal breath sounds Abdomen: normal bowel sounds, non tender, soft Extremities: normal inspection Edema: no edema noted Arm (L), no edema noted Arm (R), no edema noted Leg (L), no edema noted Leg (R), no edema noted Pedal (L), no edema noted Pedal (R), no edema noted Generalized Neurologic: responsive, motor weakness Skin: normal pigmentation, warm/dry Elan Petersen DO Jan 02, 2018 14:05
[2018-01-02 16:00] VITALS: BP 110/72
[2018-01-02 20:00] VITALS: BP 100/70
[2018-01-02 20:19] LABS: APPEARANCE,URINE CLEAR; BILIRUBIN, URINE NEGATIVE (NEGATIVE); GLUCOSE, URINE (UA) NEGATIVE (NEGATIVE); KETONES,URINE NEGATIVE (NEGATIVE); LEUKOCYTE ESTERASE ,URINE NEGATIVE (NEGATIVE); NITRITE,URINE NEGATIVE (NEGATIVE); PH,URINE 5 (4.5-8.0); PROTEIN,URINE 1+ (NEGATIVE); UROBILINOGEN,URINE NORMAL MG/DL (0.0-1.0)
[2018-01-02 20:20] LABS: COLOR,URINE YELLOW
[2018-01-03] VITALS: BP 105/72
[2018-01-03] MEDS: LORazepam Inj 2mg/ml 1ml IV PRN (01:19)
[2018-01-03 04:00] VITALS: BP 110/70
[2018-01-03] MEDS: Meropenem 1 GM in NS 55 ML IVPB SCH ×2 (04:30→12:23)
[2018-01-03 05:11] LABS: BASOPHILS % (AUTO) 1.5 % (0.0-2.0); EOSINOPHILS % (AUTO) 6.9 % (0.0-3.0); HEMATOCRIT 35.2 % (42.0-52.0); HEMOGLOBIN 11.7 G/DL (14.2-18.0); LYMPHOCYTES % (AUTO) 18.7 % (20.0-45.0); MEAN CORPUSCULAR VOLUME 89 FL (80-99); PLATELET COUNT 317 K/UL (150-450); RED BLOOD COUNT 3.98 M/UL (4.70-6.10); RED CELL DISTRIBUTION WIDTH 11.1 % (11.6-14.8); WHITE BLOOD COUNT 7.8 K/UL (4.8-10.8)
[2018-01-03 05:19] LABS: ANION GAP 1 mmol/L (5-15); BLOOD UREA NITROGEN 11 mg/dL (7-18); CALCIUM 8.9 MG/DL (8.5-10.1); CARBON DIOXIDE 34 MMOL/L (21-32); CHLORIDE 103 MMOL/L (98-107); CREATININE 1.1 MG/DL (0.55-1.30); POTASSIUM 3.6 MMOL/L (3.5-5.1); SODIUM 138 MMOL/L (136-145)
--- NOTE | 2018-01-03 06:58 | Pulmonology Progress Note ---
Assessment/Plan Assessment/Plan ASSESSMENT Acute on chronic respiratory failure sepsis with bacteremia SCON and Acinetobacter Pneumonia with Staph aureus Hypertension COPD colon mass, status post hemicolectomy Pulmonary infiltrates Diabetes mellitus PLAN OF CARE JORDAN Ventilator support, tracheostomy care Pulmonary toilet Baseline ABG and titrate settings as needed Follow up with the chest x-ray sputum culture positive for Staph aureus , blood culture positive for SCON and Acinetobacter ID follows, antibiotic as per ID recommendation venous duplex bilateral lower extremity negative pain management DVT GI prophylaxis blood pressure management with calcium channel marguerite , titrate as needed bowel regimen Will need to repeat CT at some point BS management with sliding scale insulin as needed case discussed and evaluated by supervising physician Subjective Allergies: Coded Allergies: No Known Allergies (Unverified , 06/17/16) Subjective leukocytosis resolved , afebrile no signs of respiratory distress on current setting Objective Last 24 Hour Vital Signs Date Time Temp Pulse Resp B/P (MAP) Pulse Ox O2 Delivery O2 Flow Rate FiO2 01/03/18 04:30 96 14 40 01/03/18 04:00 60 01/03/18 04:00 98.8 95 21 110/70 100 Mechanical Ventilator 60 98.8 01/03/18 03:37 94 01/03/18 03:05 93 21 40 01/03/18 01:30 91 17 40 01/03/18 00:00 98.8 95 21 105/72 100 Mechanical Ventilator 60 98.8 01/03/18 00:00 92 01/03/18 00:00 60 01/02/18 22:55 99 18 40 01/02/18 21:23 104 19 40 01/02/18 20:00 98.5 95 21 100/70 100 Mechanical Ventilator 60 98.5 01/02/18 20:00 60 01/02/18 19:21 95 01/02/18 19:01 60 01/02/18 19:01 99 18 99 Mechanical Ventilator 60 01/02/18 18:53 86 19 50 01/02/18 17:20 99 19 50 01/02/18 16:00 92 01/02/18 16:00 98.2 94 22 110/72 100 Mechanical Ventilator 60 98.2 01/02/18 16:00 60 01/02/18 15:06 101 19 50 01/02/18 13:13 99 24 99 Mechanical Ventilator 50 6/29/18 13:08 60 01/02/18 13:07 104 21 99 Mechanical Ventilator 60 01/02/18 13:04 104 24 50 01/02/18 12:00 60 01/02/18 12:00 98.0 102 37 110/69 100 Mechanical Ventilator 60 98.0 01/02/18 12:00 94 01/02/18 11:05 95 23 50 01/02/18 09:22 107 27 50 01/02/18 08:52 115 124/58 01/02/18 08:00 60 01/02/18 08:00 98.8 115 35 124/58 100 Mechanical Ventilator 60 98.8 01/02/18 07:52 115 01/02/18 07:11 96 20 99 Mechanical Ventilator 50 01/02/18 07:06 50 01/02/18 07:05 100 19 100 Mechanical Ventilator 50 01/02/18 07:02 100 21 50 Intake and Output 01/02/18 01/03/18 18:59 06:59 Intake Total 630.000 ml 385.000 ml Output Total 400 ml 400 ml Balance 230.000 ml -15.000 ml Intake Oral 300 ml IV Total 330.000 ml 385.000 ml Output Urine Total 400 ml 400 ml # Bowel Movements 2 2 General Appearance: no acute distress, other - on SIMV vent 600-40%-8 HEENT: status post trach - Portex#8, secretions small, yellow, thin Respiratory/Chest: no respiratory distress, decreased breath sounds Cardiovascular: normal rate - SR on tele, no JVD Abdomen: normal bowel sounds, soft, non tender Neurologic/Psychiatric: abnormal gait, other - somnolent, Musculoskeletal: atrophy - BLE Microbiology Date/Time Source Procedure Growth Status 01/01/18 14:05 Blood Blood Culture - Preliminary NO GROWTH AFTER 24 HOURS Resulted 01/01/18 13:50 Blood Blood Culture - Preliminary NO GROWTH AFTER 24 HOURS Resulted 12/31/17 11:30 Sputum Gram Stain - Final Resulted 12/31/17 11:30 Sputum Culture - Preliminary Staphylococcus Aureus Resulted Laboratory Tests 01/02/18 19:30: Urine Color Yellow, Urine Appearance Clear, Urine pH 5, Urine Specific [place] 1.020, Urine Protein 1+H, Urine Glucose (UA) Negative, Urine Ketones Negative, Urine Occult Blood 3+H, Urine Nitrite Negative, Urine Bilirubin Negative, Urine Urobilinogen Normal, Urine Leukocyte Esterase Negative, Urine RBC 2-4H, Urine WBC 0-2, Urine Squamous Epithelial Cells None, Urine Bacteria ModerateH 01/03/18 04:00: White Blood Count 7.8, Red Blood Count 3.98L, Hemoglobin 11.7L, Hematocrit 35.2L , Mean Corpuscular Volume 89, Mean Corpuscular Hemoglobin 29.5, Mean Corpuscular Hemoglobin Concent 33.3, Red Cell Distribution Width 11.1L, Platelet Count 317, Mean Platelet Volume 6.6, Neutrophils (%) (Auto) 64.0, Lymphocytes (%) (Auto) 18.7L, Monocytes (%) (Auto) 9.0, Eosinophils (%) (Auto) 6.9H, Basophils (%) (Auto) 1.5, Sodium Level 138, Potassium Level 3.6, Chloride Level 103, Carbon Dioxide Level 34H, Anion Gap 1L, Blood Urea Nitrogen 11, Creatinine 1.1, Estimat Glomerular Filtration Rate > 60, Glucose Level 112H, Calcium Level 8.9 Current Medications Medications (Trade) Dose Ordered Sig/Shraddha Route PRN Reason Start Time Stop Time Status Last Admin Dose Admin Acetaminophen (Tylenol) 650 mg Q4H PRN ORAL FEVER 12/30/17 21:30 01/29/18 21:29 12/30/17 23:02 Albuterol/ Ipratropium (Albuterol/ Ipratropium) 3 ml Q4H PRN HHN Shortness of Breath 12/30/17 21:30 01/04/18 21:29 01/02/18 19:01 Amlodipine Besylate (Norvasc) 5 mg DAILY ORAL 12/31/17 09:00 01/30/18 08:59 01/02/18 08:52 Barium Sulfate (Readi-Cat 2) 450 ea NOW PRN ORAL Radiology Procedure 01/02/18 13:00 01/04/18 12:54 Dextrose (Dextrose 50%) 25 ml STAT PRN IV Hypoglycemia 12/30/17 21:30 01/29/18 21:29 Diatrizoate Meglum/ Diatrizoate Sod (Gastrografin) 30 ml NOW PRN ORAL Radiology Procedure 01/02/18 13:00 01/04/18 12:59 Diatrizoate Meglum/ Diatrizoate Sod (Gastrografin) 60 ml NOW PRN RECTAL Radiology Procedure 01/02/18 13:00 01/04/18 12:54 Heparin Sodium (Porcine) (Heparin 5000 units/ml) 5,000 units EVERY 12 HOURS SUBQ 12/31/17 09:00 01/30/18 08:59 01/02/18 20:57 Iopamidol (Isovue-300 100ml) 100 ml NOW PRN INJ Radiology Procedure 01/02/18 13:00 01/04/18 12:59 Lorazepam (Ativan 2mg/ml 1ml) 2 mg Q2H PRN IV For Anxiety 12/30/17 21:30 01/06/18 21:29 01/03/18 01:19 Meropenem 1 gm/ Sodium Chloride 55 ml @ 110 mls/hr Q8H IVPB 12/31/17 20:30 01/05/18 20:29 01/03/18 04:30 Morphine Sulfate (Morphine Sulfate) 4 mg Q4H PRN IVP Severe Pain (Pain Scale 7-10) 12/30/17 21:30 01/06/18 21:29 Ondansetron HCl (Zofran) 4 mg Q6H PRN IVP Nausea & Vomiting 12/30/17 21:30 01/29/18 21:29 Pantoprazole (Protonix) 40 mg DAILY IV 12/31/17 09:00 01/30/18 08:59 01/02/18 08:52 Polyethylene Glycol (Miralax) 17 gm DAILYPRN PRN ORAL Constipation 12/30/17 21:30 01/29/18 21:29 Vancomycin HCl (Vanco rx to dose) 1 ea DAILY PRN MISC pharmacy to dose 12/30/17 21:45 01/29/18 21:44 Vancomycin HCl 1 gm/Dextrose 275 ml @ 183.708 mls/hr Q12HR@1100,2300 IVPB 01/01/18 23:00 01/06/18 22:59 01/02/18 22:10 Katia Sequeira [employer] Jan 03, 2018 06:58
[2018-01-03] MEDS: Albuterol/Ipratropium 3ml neb HHN PRN ×3 (07:58→19:22)
[2018-01-03 08:00] VITALS: BP 118/84
--- NOTE | 2018-01-03 09:11 | General Progress Note ---
Assessment/Plan Problem List: (1) HTN (hypertension) ICD Codes: I10 - Essential (primary) hypertension SNOMED: 14564891 (2) Diabetes ICD Codes: E11.9 - Type 2 diabetes mellitus without complications SNOMED: 60481057 (3) Sepsis ICD Codes: A41.9 - Sepsis, unspecified organism SNOMED: 05536732 (4) Respiratory failure ICD Codes: J96.90 - Respiratory failure, unspecified, unspecified whether with hypoxia or hypercapnia SNOMED: 995265010 (5) SOB (shortness of breath) ICD Codes: R06.02 - Shortness of breath SNOMED: 289359883 (6) DVT (deep venous thrombosis) ICD Codes: I82.409 - Acute embolism and thrombosis of unspecified deep veins of unspecified lower extremity SNOMED: 388309250 Status: stable, progressing Assessment/Plan vent abx cbc bmp am dc plan snf Subjective Constitutional: Reports: weakness Allergies: Coded Allergies: No Known Allergies (Unverified , 06/17/16) All Systems: reviewed and negative except above Subjective trach vent asleep Objective Last 24 Hour Vital Signs Date Time Temp Pulse Resp B/P (MAP) Pulse Ox O2 Delivery O2 Flow Rate FiO2 01/03/18 08:33 40 01/03/18 08:07 97 21 99 Mechanical Ventilator 40 01/03/18 08:00 40 01/03/18 07:59 89 21 99 Mechanical Ventilator 40 01/03/18 07:08 92 23 40 01/03/18 04:30 96 14 40 01/03/18 04:00 40 01/03/18 04:00 98.8 95 21 110/70 100 Mechanical Ventilator 60 98.8 01/03/18 03:37 94 01/03/18 03:05 93 21 40 01/03/18 01:30 91 17 40 01/03/18 00:00 98.8 95 21 105/72 100 Mechanical Ventilator 60 98.8 01/03/18 00:00 92 01/03/18 00:00 60 01/02/18 22:55 99 18 40 01/02/18 21:23 104 19 40 01/02/18 20:00 98.5 95 21 100/70 100 Mechanical Ventilator 60 98.5 01/02/18 20:00 60 01/02/18 19:21 95 01/02/18 19:01 60 01/02/18 19:01 99 18 99 Mechanical Ventilator 60 01/02/18 18:53 86 19 50 01/02/18 17:20 99 19 50 01/02/18 16:00 92 01/02/18 16:00 98.2 94 22 110/72 100 Mechanical Ventilator 60 98.2 01/02/18 16:00 60 01/02/18 15:06 101 19 50 01/02/18 13:13 99 24 99 Mechanical Ventilator 50 01/02/18 13:08 60 01/02/18 13:07 104 21 99 Mechanical Ventilator 60 01/02/18 13:04 104 24 50 01/02/18 12:00 60 01/02/18 12:00 98.0 102 37 110/69 100 Mechanical Ventilator 60 98.0 01/02/18 12:00 94 01/02/18 11:05 95 23 50 01/02/18 09:22 107 27 50 Intake and Output 01/02/18 01/03/18 19:00 07:00 Intake Total 630.000 ml 385.000 ml Output Total 400 ml 400 ml Balance 230.000 ml -15.000 ml Intake Oral 300 ml IV Total 330.000 ml 385.000 ml Output Urine Total 400 ml 400 ml # Bowel Movements 2 2 Laboratory Tests 01/02/18 19:30: Urine Color Yellow, Urine Appearance Clear, Urine pH 5, Urine Specific [place] 1.020, Urine Protein 1+H, Urine Glucose (UA) Negative, Urine Ketones Negative, Urine Occult Blood 3+H, Urine Nitrite Negative, Urine Bilirubin Negative, Urine Urobilinogen Normal, Urine Leukocyte Esterase Negative, Urine RBC 2-4H, Urine WBC 0-2, Urine Squamous Epithelial Cells None, Urine Bacteria ModerateH 01/03/18 04:00: White Blood Count 7.8, Red Blood Count 3.98L, Hemoglobin 11.7L, Hematocrit 35.2L , Mean Corpuscular Volume 89, Mean Corpuscular Hemoglobin 29.5, Mean Corpuscular Hemoglobin Concent 33.3, Red Cell Distribution Width 11.1L, Platelet Count 317, Mean Platelet Volume 6.6, Neutrophils (%) (Auto) 64.0, Lymphocytes (%) (Auto) 18.7L, Monocytes (%) (Auto) 9.0, Eosinophils (%) (Auto) 6.9H, Basophils (%) (Auto) 1.5, Sodium Level 138, Potassium Level 3.6, Chloride Level 103, Carbon Dioxide Level 34H, Anion Gap 1L, Blood Urea Nitrogen 11, Creatinine 1.1, Estimat Glomerular Filtration Rate > 60, Glucose Level 112H, Calcium Level 8.9 Height (Feet): 6 Height (Inches): 3.00 Weight (Pounds): 176 General Appearance: lethargic EENT: normal ENT inspection Neck: normal alignment Cardiovascular: normal peripheral pulses, normal rate, regular rhythm Respiratory/Chest: chest wall non-tender, lungs clear, normal breath sounds Abdomen: normal bowel sounds, non tender, soft Extremities: normal inspection Edema: no edema noted Arm (L), no edema noted Arm (R), no edema noted Leg (L), no edema noted Leg (R), no edema noted Pedal (L), no edema noted Pedal (R), no edema noted Generalized Neurologic: motor weakness Skin: normal pigmentation, warm/dry Elan Petersen DO Jan 03, 2018 09:11
[2018-01-03] MEDS: Pantoprazole Inj IV SCH (10:02)
[2018-01-03] MEDS: Heparin 5000 units/ml inj SUBQ SCH ×2 (10:06→21:33)
[2018-01-03] MEDS: Vancomycin 1gm/D5W 275ml IVPB SCH ×4 (10:58→23:13)
[2018-01-03 12:00] VITALS: BP 115/73
--- NOTE | 2018-01-03 13:45 | Infectious Diseases Prog Note ---
Assessment/Plan Assessment/Plan Assessment: SEpsis- ? PNA : MRSA -u/a no pyuria - 01/02 CXR : [facility] -CXR: Possible small right pleural effusion versus thickening.Mild increased reticular markings at the lung bases nonspecific CONS bacteremia, and ACB in blood cx likely contaminant -12/30 Bcx 2/2 GPC ConS (1st set); 2nd set 1/2 ACB/ GPC clusters- - Bcx p Fever, sp leukocytosis; Sp Recent ventilator-associated pneumonia 07/2017, s/p Rx -CXR: Lungs are asymmetric with increased density in the right lung which may be due to underlying infiltrate or pleural disease. The finding is stable. Both lungs appear hyperexpanded. -sp cx #P mirabilis (S Ancef, Ceftriaxone, Zosyn, Ertapenem; R Imipenem, Cipro/Levo), +4 Serratia marcecens (S Ceftriaxone, Ertapenem) DM HTN asthma/COPD interstitial PNA hx MDR Acinetobacter and PsA PNA hx MDR Acinetobacter UTI -ucx -u/a neg; ucx >100k Proteus ( S Zosyn, levaquin, amikacin) 07/2017; colonization Colon mass s/p hemicolectomy chronic resp failure trach/vent dependant pHTN RLE DVT pulmonary nodules SNF resident hx of VRE colonization Plan: -Continue IV Vancomycin # ( Coverage of Pneum ) Start Levaquin d# ( ? Bacteremia ) - Sp Meropenem abx d# 5 -12/30 SP Levaquin x1, Zosyn #1 -07/24 SP Zosyn #14 -07/15 SP IV vanco #5 -07/12 SP Tamiflu #2 -07/11/17 Azithromycin x1 -f/u repeat Bcx x2 -CT abd/p IV and PO contrast -f/u cx -Monitor CBC/BMP, temperatures -trach care -wound care/prevention per hospital protocol -CBC, CMP, CXR am Subjective Constitutional: Denies: no symptoms, fever, chills, fatigue, anorexia, drenching sweats, other Allergies: Coded Allergies: No Known Allergies (Unverified , 06/17/16) Subjective possible DC to SNF today Objective Vital Signs Last 24 Hour Vital Signs Date Time Temp Pulse Resp B/P (MAP) Pulse Ox O2 Delivery O2 Flow Rate FiO2 01/03/18 13:02 96 22 100 Mechanical Ventilator 40 01/03/18 13:02 40 01/03/18 13:01 98 22 40 01/03/18 12:00 40 01/03/18 12:00 97.7 93 20 115/73 100 Mechanical Ventilator 40 97.7 01/03/18 11:12 91 19 40 01/03/18 09:22 96 21 40 01/03/18 09:00 96 118/84 01/03/18 08:33 40 01/03/18 08:07 97 21 99 Mechanical Ventilator 40 01/03/18 08:00 97 01/03/18 08:00 40 01/03/18 08:00 97.7 104 22 118/84 99 Mechanical Ventilator 60 97.7 01/03/18 07:59 89 21 99 Mechanical Ventilator 40 01/03/18 07:08 92 23 40 01/03/18 04:30 96 14 40 01/03/18 04:00 40 01/03/18 04:00 98.8 95 21 110/70 100 Mechanical Ventilator 60 98.8 01/03/18 03:37 94 01/03/18 03:05 93 21 40 01/03/18 01:30 91 17 40 01/03/18 00:00 98.8 95 21 105/72 100 Mechanical Ventilator 60 98.8 01/03/18 00:00 92 01/03/18 00:00 60 01/02/18 22:55 99 18 40 01/02/18 21:23 104 19 40 01/02/18 20:00 98.5 95 21 100/70 100 Mechanical Ventilator 60 98.5 01/02/18 20:00 60 01/02/18 19:21 95 01/02/18 19:01 60 01/02/18 19:01 99 18 99 Mechanical Ventilator 60 01/02/18 18:53 86 19 50 01/02/18 17:20 99 19 50 01/02/18 16:00 92 01/02/18 16:00 98.2 94 22 110/72 100 Mechanical Ventilator 60 98.2 01/02/18 16:00 60 01/02/18 15:06 101 19 50 Height (Feet): 6 Height (Inches): 3.00 Weight (Pounds): 176 HEENT: mucous membranes moist Respiratory/Chest: normal breath sounds Cardiovascular: regular rhythm Abdomen: no organomegaly Microbiology Date/Time Source Procedure Growth Status 01/01/18 14:05 Blood Blood Culture - Preliminary NO GROWTH AFTER 24 HOURS Resulted 01/01/18 13:50 Blood Blood Culture - Preliminary NO GROWTH AFTER 24 HOURS Resulted Laboratory Tests Test 01/02/18 19:30 01/03/18 04:00 Urine Color Yellow Urine Appearance Clear Urine pH 5 (4.5-8.0) Urine Specific [place] 1.020 (1.005-1.035) Urine Protein 1+ (NEGATIVE) H Urine Glucose (UA) Negative (NEGATIVE) Urine Ketones Negative (NEGATIVE) Urine Occult Blood 3+ (NEGATIVE) H Urine Nitrite Negative (NEGATIVE) Urine Bilirubin Negative (NEGATIVE) Urine Urobilinogen Normal MG/DL (0.0-1.0) Urine Leukocyte Esterase Negative (NEGATIVE) Urine RBC 2-4 /HPF (0 - 0) H Urine WBC 0-2 /HPF (0 - 0) Urine Squamous Epithelial Cells None /LPF (NONE/OCC) Urine Bacteria Moderate /HPF (NONE) H White Blood Count 7.8 K/UL (4.8-10.8) Red Blood Count 3.98 M/UL (4.70-6.10) L Hemoglobin 11.7 G/DL (14.2-18.0) L Hematocrit 35.2 % (42.0-52.0) L Mean Corpuscular Volume 89 FL (80-99) Mean Corpuscular Hemoglobin 29.5 PG (27.0-31.0) Mean Corpuscular Hemoglobin Concent 33.3 G/DL (32.0-36.0) Red Cell Distribution Width 11.1 % (11.6-14.8) L Platelet Count 317 K/UL (150-450) Mean Platelet Volume 6.6 FL (6.5-10.1) Neutrophils (%) (Auto) 64.0 % (45.0-75.0) Lymphocytes (%) (Auto) 18.7 % (20.0-45.0) L Monocytes (%) (Auto) 9.0 % (1.0-10.0) Eosinophils (%) (Auto) 6.9 % (0.0-3.0) H Basophils (%) (Auto) 1.5 % (0.0-2.0) Sodium Level 138 MMOL/L (136-145) Potassium Level 3.6 MMOL/L (3.5-5.1) Chloride Level 103 MMOL/L (98-107) Carbon Dioxide Level 34 MMOL/L (21-32) H Anion Gap 1 mmol/L (5-15) L Blood Urea Nitrogen 11 mg/dL (7-18) Creatinine 1.1 MG/DL (0.55-1.30) Estimat Glomerular Filtration Rate > 60 mL/min (>60) Glucose Level 112 MG/DL (74-106) H Calcium Level 8.9 MG/DL (8.5-10.1) Current Medications Medications (Trade) Dose Ordered Sig/Shraddha Route PRN Reason Start Time Stop Time Status Last Admin Dose Admin Acetaminophen (Tylenol) 650 mg Q4H PRN ORAL FEVER 12/30/17 21:30 01/29/18 21:29 12/30/17 23:02 Albuterol/ Ipratropium (Albuterol/ Ipratropium) 3 ml Q4H PRN HHN Shortness of Breath 12/30/17 21:30 01/04/18 21:29 01/03/18 13:02 Amlodipine Besylate (Norvasc) 5 mg DAILY ORAL 12/31/17 09:00 01/30/18 08:59 01/02/18 08:52 Barium Sulfate (Readi-Cat 2) 450 ea NOW PRN ORAL Radiology Procedure 01/02/18 13:00 01/04/18 12:54 Dextrose (Dextrose 50%) 25 ml STAT PRN IV Hypoglycemia 12/30/17 21:30 01/29/18 21:29 Diatrizoate Meglum/ Diatrizoate Sod (Gastrografin) 30 ml NOW PRN ORAL Radiology Procedure 01/02/18 13:00 01/04/18 12:59 Diatrizoate Meglum/ Diatrizoate Sod (Gastrografin) 60 ml NOW PRN RECTAL Radiology Procedure 01/02/18 13:00 01/04/18 12:54 Heparin Sodium (Porcine) (Heparin 5000 units/ml) 5,000 units EVERY 12 HOURS SUBQ 12/31/17 09:00 01/30/18 08:59 01/03/18 10:06 Iopamidol (Isovue-300 100ml) 100 ml NOW PRN INJ Radiology Procedure 01/02/18 13:00 01/04/18 12:59 Lorazepam (Ativan 2mg/ml 1ml) 2 mg Q2H PRN IV For Anxiety 12/30/17 21:30 01/06/18 21:29 01/03/18 01:19 Meropenem 1 gm/ Sodium Chloride 55 ml @ 110 mls/hr Q8H IVPB 12/31/17 20:30 01/05/18 20:29 01/03/18 12:23 Morphine Sulfate (Morphine Sulfate) 4 mg Q4H PRN IVP Severe Pain (Pain Scale 7-10) 12/30/17 21:30 01/06/18 21:29 Ondansetron HCl (Zofran) 4 mg Q6H PRN IVP Nausea & Vomiting 12/30/17 21:30 01/29/18 21:29 Pantoprazole (Protonix) 40 mg DAILY IV 12/31/17 09:00 01/30/18 08:59 01/03/18 10:02 Polyethylene Glycol (Miralax) 17 gm DAILYPRN PRN ORAL Constipation 12/30/17 21:30 01/29/18 21:29 Vancomycin HCl (Vanco rx to dose) 1 ea DAILY PRN MISC pharmacy to dose 12/30/17 21:45 01/29/18 21:44 Vancomycin HCl 1 gm/Dextrose 275 ml @ 183.708 mls/hr Q12HR@1100,2300 IVPB 01/01/18 23:00 01/06/18 22:59 01/03/18 10:58 Anibal Trujillo MD Jan 03, 2018 13:45
--- NOTE | 2018-01-03 15:33 | Diagnostic Imaging Report ---
EXAM: CT Abdomen and Pelvis With Intravenous Contrast CLINICAL HISTORY: ABSCESS TECHNIQUE: Axial computed tomography images of the abdomen and pelvis with intravenous contrast. CTDI is 0.15 + 15.91 mGy and DLP is 795 mGy-cm. One or more of the following dose reduction techniques were used: automated exposure control, adjustment of the mA and/or kV according to patient size, use of iterative reconstruction technique. COMPARISON: CT 11/06/16 FINDINGS: Lung bases: Basilar atelectasis and consolidation. Pleural space: Trace left and small right pleural effusions with some loculations suspected. Right pleural thickening. Heart: Small pericardial effusion. Mediastinum: Small hiatal hernia with adjacent partially imaged yecenia lesion measuring 15 mm. ABDOMEN: Liver: Unremarkable. Gallbladder and bile ducts: No calcified stones. No ductal dilation. Pancreas: Unremarkable. Spleen: Unremarkable. Adrenals: Unremarkable. Kidneys and ureters: Unremarkable. No hydronephrosis. Stomach and bowel: No last mural thickening. Nonobstructive bowel gas pattern. PELVIS: Appendix: Appendix not identified. Bladder: Unremarkable. Reproductive: Unremarkable. ABDOMEN and PELVIS: Intraperitoneal space: Unremarkable. Bones/joints: Degenerative and erosive changes in the spine. Soft tissues: Bilateral inguinal hernias, left greater than right. The left is fat containing and the right contains small yecenia lesion or trace fluid and fat. Vasculature: Unremarkable. No abdominal aortic aneurysm. Lymph nodes: No enlarged lymph nodes. IMPRESSION: 1. Trace left and small right pleural effusions with some loculations suspected. Right pleural thickening. 2. No intra-abdominal abscess.
[2018-01-03 16:00] VITALS: BP 115/79
[2018-01-03] MEDS ORDERED: Tubing IV Secondary IV ONE (17:09)
[2018-01-03] MEDS ORDERED: NS 500ML ONE (17:09)
[2018-01-03 20:00] VITALS: BP 100/70
[2018-01-04] VITALS: BP 112/73
[2018-01-04] MEDS: Albuterol/Ipratropium 3ml neb HHN PRN ×4 (00:16→20:43)
[2018-01-04 04:00] VITALS: BP 100/70
[2018-01-04 05:39] LABS: BASOPHILS % (AUTO) 1.6 % (0.0-2.0); EOSINOPHILS % (AUTO) 7.9 % (0.0-3.0); HEMATOCRIT 32.9 % (42.0-52.0); HEMOGLOBIN 10.9 G/DL (14.2-18.0); MEAN CORPUSCULAR VOLUME 88 FL (80-99); MONOCYTES % (AUTO) 5.7 % (1.0-10.0); NEUTROPHILS % (AUTO) 64.8 % (45.0-75.0); PLATELET COUNT 331 K/UL (150-450); RED BLOOD COUNT 3.73 M/UL (4.70-6.10); RED CELL DISTRIBUTION WIDTH 11.3 % (11.6-14.8); WHITE BLOOD COUNT 7.8 K/UL (4.8-10.8)
[2018-01-04 06:54] LABS: ANION GAP 1 mmol/L (5-15); BLOOD UREA NITROGEN 7 mg/dL (7-18); CALCIUM 8.8 MG/DL (8.5-10.1); CARBON DIOXIDE 35 MMOL/L (21-32); CHLORIDE 101 MMOL/L (98-107); CREATININE 0.9 MG/DL (0.55-1.30); POTASSIUM 3.6 MMOL/L (3.5-5.1); SODIUM 137 MMOL/L (136-145)
[2018-01-04 08:00] VITALS: BP 119/66
--- NOTE | 2018-01-04 08:18 | Pulmonology Progress Note ---
Assessment/Plan Assessment/Plan ASSESSMENT Acute on chronic respiratory failure sepsis with bacteremia SCON and Acinetobacter ?contaminant Pneumonia with Staph aureus Hypertension COPD colon mass, status post hemicolectomy Pulmonary nodules Diabetes mellitus PLAN OF CARE JORDAN Ventilator support, tracheostomy care Pulmonary toilet Baseline ABG and titrate settings as needed Follow up with the chest x-ray in am sputum culture +Staph aureus blood culture +SCON and Acinetobacter -likely contaminant as per ID ID follows, antibiotic as per ID recommendation CT A/P no intra-abdominal abscess. venous duplex bilateral lower extremity negative pain management DVT GI prophylaxis blood pressure management with calcium channel marguerite , titrate as needed bowel regimen Will need to repeat CT chest at some point BS management with sliding scale insulin as needed case discussed and evaluated by supervising physician Subjective Allergies: Coded Allergies: No Known Allergies (Unverified , 06/17/16) Subjective leukocytosis resolved , afebrile no signs of respiratory distress on current setting Objective Last 24 Hour Vital Signs Date Time Temp Pulse Resp B/P (MAP) Pulse Ox O2 Delivery O2 Flow Rate FiO2 01/04/18 07:26 106 27 40 01/04/18 04:35 94 22 40 01/04/18 04:00 40 01/04/18 04:00 97.3 93 19 100/70 99 Mechanical Ventilator 40 97.3 01/04/18 03:38 87 01/04/18 02:37 90 22 40 01/04/18 00:30 89 19 40 01/04/18 00:27 89 19 99 Mechanical Ventilator 40 01/04/18 00:16 96 20 98 Mechanical Ventilator 40 01/04/18 00:16 40 01/04/18 00:00 100 01/04/18 00:00 97.7 98 18 112/73 100 Mechanical Ventilator 40 97.7 01/04/18 00:00 40 01/03/18 23:00 95 20 40 01/03/18 20:39 95 21 40 01/03/18 20:00 97.5 100 21 100/70 100 Mechanical Ventilator 40 97.5 01/03/18 20:00 40 01/03/18 19:39 84 21 100 Mechanical Ventilator 40 01/03/18 19:36 89 01/03/18 19:22 94 21 99 Mechanical Ventilator 40 01/03/18 19:22 40 01/03/18 19:19 94 21 40 01/03/18 17:03 89 18 40 01/03/18 16:00 99 01/03/18 16:00 97.3 97 22 115/79 100 Mechanical Ventilator 40 97.3 01/03/18 16:00 40 01/03/18 15:17 102 21 40 01/03/18 13:02 96 22 100 Mechanical Ventilator 40 01/03/18 13:02 40 01/03/18 13:01 98 22 40 01/03/18 12:00 40 01/03/18 12:00 97.7 93 20 115/73 100 Mechanical Ventilator 40 97.7 01/03/18 12:00 104 01/03/18 11:12 91 19 40 01/03/18 09:22 96 21 40 01/03/18 09:00 96 118/84 01/03/18 08:33 40 Intake and Output 01/03/18 01/04/18 19:00 07:00 Intake Total 930.000 ml 150 ml Output Total 350 ml 400 ml Balance 580.000 ml -250 ml Intake Oral 450 ml 150 ml IV Total 480.000 ml Output Urine Total 350 ml 400 ml # Bowel Movements 2 2 Objective General Appearance: no acute distress, on SIMV vent 600-40%-8 HEENT: status post trach - Portex#8, secretions small, yellow, thin Respiratory/Chest: no respiratory distress, decreased breath sounds Cardiovascular: normal rate - SR on tele, no JVD Abdomen: normal bowel sounds, soft, non tender Neurologic/Psychiatric: abnormal gait, awake, alert, responsive Musculoskeletal: atrophy - BLE Microbiology Date/Time Source Procedure Growth Status 01/01/18 14:05 Blood Blood Culture - Preliminary NO GROWTH AFTER 48 HOURS Resulted 01/01/18 13:50 Blood Blood Culture - Preliminary NO GROWTH AFTER 48 HOURS Resulted 01/02/18 19:30 Urine,Clean Catch Urine Culture - Preliminary NO GROWTH Resulted Laboratory Tests 01/04/18 03:25: White Blood Count 7.8, Red Blood Count 3.73L, Hemoglobin 10.9L, Hematocrit 32.9L , Mean Corpuscular Volume 88, Mean Corpuscular Hemoglobin 29.3, Mean Corpuscular Hemoglobin Concent 33.2, Red Cell Distribution Width 11.3L, Platelet Count 331, Mean Platelet Volume 6.0L, Neutrophils (%) (Auto) 64.8, Lymphocytes (%) (Auto) 20.0, Monocytes (%) (Auto) 5.7, Eosinophils (%) (Auto) 7.9H, Basophils (%) (Auto) 1.6, Sodium Level 137, Potassium Level 3.6, Chloride Level 101, Carbon Dioxide Level 35H, Anion Gap 1L, Blood Urea Nitrogen 7, Creatinine 0.9, Estimat Glomerular Filtration Rate > 60, Glucose Level 82, Calcium Level 8.8 Current Medications Medications (Trade) Dose Ordered Sig/Shraddha Route PRN Reason Start Time Stop Time Status Last Admin Dose Admin Acetaminophen (Tylenol) 650 mg Q4H PRN ORAL FEVER 12/30/17 21:30 01/29/18 21:29 12/30/17 23:02 Albuterol/ Ipratropium (Albuterol/ Ipratropium) 3 ml Q4H PRN HHN Shortness of Breath 12/30/17 21:30 01/04/18 21:29 01/04/18 00:16 Amlodipine Besylate (Norvasc) 5 mg DAILY ORAL 12/31/17 09:00 01/30/18 08:59 01/02/18 08:52 Barium Sulfate (Readi-Cat 2) 450 ea NOW PRN ORAL Radiology Procedure 01/02/18 13:00 01/04/18 12:54 Dextrose (Dextrose 50%) 25 ml STAT PRN IV Hypoglycemia 12/30/17 21:30 01/29/18 21:29 Diatrizoate Meglum/ Diatrizoate Sod (Gastrografin) 30 ml NOW PRN ORAL Radiology Procedure 01/02/18 13:00 01/04/18 12:59 Diatrizoate Meglum/ Diatrizoate Sod (Gastrografin) 60 ml NOW PRN RECTAL Radiology Procedure 01/02/18 13:00 01/04/18 12:54 Heparin Sodium (Porcine) (Heparin 5000 units/ml) 5,000 units EVERY 12 HOURS SUBQ 12/31/17 09:00 01/30/18 08:59 01/03/18 21:33 Iopamidol (Isovue-300 100ml) 100 ml NOW PRN INJ Radiology Procedure 01/02/18 13:00 01/04/18 12:59 Levofloxacin 150 ml @ 100 mls/hr Q24H IVPB 01/03/18 15:00 01/10/18 14:59 01/03/18 15:21 Lorazepam (Ativan 2mg/ml 1ml) 2 mg Q2H PRN IV For Anxiety 12/30/17 21:30 01/06/18 21:29 01/03/18 01:19 Morphine Sulfate (Morphine Sulfate) 4 mg Q4H PRN IVP Severe Pain (Pain Scale 7-10) 12/30/17 21:30 01/06/18 21:29 Ondansetron HCl (Zofran) 4 mg Q6H PRN IVP Nausea & Vomiting 12/30/17 21:30 01/29/18 21:29 Pantoprazole (Protonix) 40 mg DAILY IV 12/31/17 09:00 01/30/18 08:59 01/03/18 10:02 Polyethylene Glycol (Miralax) 17 gm DAILYPRN PRN ORAL Constipation 12/30/17 21:30 01/29/18 21:29 Vancomycin HCl (Vanco rx to dose) 1 ea DAILY PRN MISC pharmacy to dose 12/30/17 21:45 01/29/18 21:44 Vancomycin HCl 1 gm/Dextrose 275 ml @ 183.708 mls/hr Q12HR@1100,2300 IVPB 01/01/18 23:00 01/06/18 22:59 01/03/18 23:13 Katia Sequeira [employer] Jan 04, 2018 08:18
--- NOTE | 2018-01-04 09:20 | General Progress Note ---
Assessment/Plan Problem List: (1) HTN (hypertension) ICD Codes: I10 - Essential (primary) hypertension SNOMED: 16848423 (2) Diabetes ICD Codes: E11.9 - Type 2 diabetes mellitus without complications SNOMED: 72262691 (3) Sepsis ICD Codes: A41.9 - Sepsis, unspecified organism SNOMED: 47732542 (4) Respiratory failure ICD Codes: J96.90 - Respiratory failure, unspecified, unspecified whether with hypoxia or hypercapnia SNOMED: 711215268 (5) SOB (shortness of breath) ICD Codes: R06.02 - Shortness of breath SNOMED: 350459669 (6) DVT (deep venous thrombosis) ICD Codes: I82.409 - Acute embolism and thrombosis of unspecified deep veins of unspecified lower extremity SNOMED: 816753675 Status: unchanged Assessment/Plan vent abx cbc bmp am dc plan snf Subjective Constitutional: Reports: weakness Allergies: Coded Allergies: No Known Allergies (Unverified , 06/17/16) All Systems: reviewed and negative except above Subjective trach vent asleep Objective Last 24 Hour Vital Signs Date Time Temp Pulse Resp B/P (MAP) Pulse Ox O2 Delivery O2 Flow Rate FiO2 01/04/18 08:46 96 24 40 01/04/18 08:00 97.3 103 22 119/66 100 Mechanical Ventilator 40 97.3 01/04/18 08:00 40 01/04/18 07:26 106 27 40 01/04/18 04:35 94 22 40 01/04/18 04:00 40 01/04/18 04:00 97.3 93 19 100/70 99 Mechanical Ventilator 40 97.3 01/04/18 03:38 87 01/04/18 02:37 90 22 40 01/04/18 00:30 89 19 40 01/04/18 00:27 89 19 99 Mechanical Ventilator 40 01/04/18 00:16 96 20 98 Mechanical Ventilator 40 01/04/18 00:16 40 01/04/18 00:00 100 01/04/18 00:00 97.7 98 18 112/73 100 Mechanical Ventilator 40 97.7 01/04/18 00:00 40 01/03/18 23:00 95 20 40 01/03/18 20:39 95 21 40 01/03/18 20:00 97.5 100 21 100/70 100 Mechanical Ventilator 40 97.5 6/30/18 20:00 40 01/03/18 19:39 84 21 100 Mechanical Ventilator 40 01/03/18 19:36 89 01/03/18 19:22 94 21 99 Mechanical Ventilator 40 01/03/18 19:22 40 01/03/18 19:19 94 21 40 01/03/18 17:03 89 18 40 01/03/18 16:00 99 01/03/18 16:00 97.3 97 22 115/79 100 Mechanical Ventilator 40 97.3 01/03/18 16:00 40 01/03/18 15:17 102 21 40 01/03/18 13:02 96 22 100 Mechanical Ventilator 40 01/03/18 13:02 40 01/03/18 13:01 98 22 40 01/03/18 12:00 40 01/03/18 12:00 97.7 93 20 115/73 100 Mechanical Ventilator 40 97.7 01/03/18 12:00 104 01/03/18 11:12 91 19 40 01/03/18 09:22 96 21 40 Intake and Output 01/03/18 01/04/18 19:00 07:00 Intake Total 930.000 ml 150 ml Output Total 350 ml 400 ml Balance 580.000 ml -250 ml Intake Oral 450 ml 150 ml IV Total 480.000 ml Output Urine Total 350 ml 400 ml # Bowel Movements 2 2 Laboratory Tests 01/04/18 03:25: White Blood Count 7.8, Red Blood Count 3.73L, Hemoglobin 10.9L, Hematocrit 32.9L , Mean Corpuscular Volume 88, Mean Corpuscular Hemoglobin 29.3, Mean Corpuscular Hemoglobin Concent 33.2, Red Cell Distribution Width 11.3L, Platelet Count 331, Mean Platelet Volume 6.0L, Neutrophils (%) (Auto) 64.8, Lymphocytes (%) (Auto) 20.0, Monocytes (%) (Auto) 5.7, Eosinophils (%) (Auto) 7.9H, Basophils (%) (Auto) 1.6, Sodium Level 137, Potassium Level 3.6, Chloride Level 101, Carbon Dioxide Level 35H, Anion Gap 1L, Blood Urea Nitrogen 7, Creatinine 0.9, Estimat Glomerular Filtration Rate > 60, Glucose Level 82, Calcium Level 8.8 Height (Feet): 6 Height (Inches): 3.00 Weight (Pounds): 176 General Appearance: lethargic EENT: normal ENT inspection Neck: normal alignment Cardiovascular: normal peripheral pulses, normal rate, regular rhythm Respiratory/Chest: chest wall non-tender, lungs clear, normal breath sounds Abdomen: normal bowel sounds, non tender, soft Extremities: normal inspection Edema: no edema noted Arm (L), no edema noted Arm (R), no edema noted Leg (L), no edema noted Leg (R), no edema noted Pedal (L), no edema noted Pedal (R), no edema noted Generalized Neurologic: motor weakness Skin: normal pigmentation, warm/dry Elan Petersen DO Jan 04, 2018 09:20
[2018-01-04] MEDS: Heparin 5000 units/ml inj SUBQ SCH ×2 (09:48→20:08)
[2018-01-04] MEDS: Pantoprazole Inj IV SCH (09:48)
[2018-01-04] MEDS: Vancomycin 1gm/D5W 275ml IVPB SCH ×4 (11:02→22:20)
[2018-01-04] MEDS ORDERED: LORazepam Inj 2mg/ml 1ml IV PRN (11:30)
[2018-01-04 12:00] VITALS: BP 115/87
[2018-01-04 16:00] VITALS: BP 109/75
[2018-01-04 20:00] VITALS: BP 100/60
[2018-01-05] VITALS: BP 120/68
[2018-01-05] MEDS: Albuterol/Ipratropium 3ml neb HHN PRN ×5 (02:22→21:12)
[2018-01-05 04:00] VITALS: BP 104/60
[2018-01-05 05:06] LABS: BASOPHILS % (AUTO) 1.3 % (0.0-2.0); EOSINOPHILS % (AUTO) 5.7 % (0.0-3.0); HEMATOCRIT 34.3 % (42.0-52.0); HEMOGLOBIN 11.2 G/DL (14.2-18.0); LYMPHOCYTES % (AUTO) 12.5 % (20.0-45.0); MEAN CORPUSCULAR VOLUME 87 FL (80-99); NEUTROPHILS % (AUTO) 72.5 % (45.0-75.0); PLATELET COUNT 345 K/UL (150-450); RED BLOOD COUNT 3.93 M/UL (4.70-6.10); WHITE BLOOD COUNT 9.1 K/UL (4.8-10.8)
[2018-01-05 05:14] LABS: ANION GAP 4 mmol/L (5-15); BLOOD UREA NITROGEN 6 mg/dL (7-18); CALCIUM 9.1 MG/DL (8.5-10.1); CARBON DIOXIDE 32 MMOL/L (21-32); CHLORIDE 100 MMOL/L (98-107); CREATININE 0.9 MG/DL (0.55-1.30); POTASSIUM 3.5 MMOL/L (3.5-5.1); SODIUM 136 MMOL/L (136-145)
[2018-01-05 08:00] VITALS: BP 113/72
[2018-01-05] MEDS: Pantoprazole Inj IV SCH (08:59)
[2018-01-05] MEDS: Heparin 5000 units/ml inj SUBQ SCH ×2 (09:04→21:24)
[2018-01-05] MEDS ORDERED: NS 500ML ONE (09:37)
--- NOTE | 2018-01-05 10:09 | Diagnostic Imaging Report ---
APPROVED REPORT CPT Code: 69263 Present Symptoms Shortness of breath BILATERAL: Imaging reveals a patent deep venous system bilaterally. There is no evidence of thrombus within the femoral, popliteal or tibial segments. The greater saphenous veins are also within normal limits. Doppler indicates normal spontaneous flow within these segments.
--- NOTE | 2018-01-05 10:44 | Pulmonolgy Critical Care Note ---
Critical Care - Asmt/Plan Problems: (1) Acute and chronic respiratory failure (2) Fever (3) Nosocomial pneumonia (4) Hypertension (5) Hypoalbuminemia (6) Severe sepsis Respiratory: monitor respiratory rate, adjust FIO2, CXR Cardiac: stop pressors, continue to monitor HR/BP Renal: check electrolytes Infectious Disease: check cultures Gastrointestinal: continue feedings/current rate Endocrine: monitor blood sugar Hematologic: monitor H/H, transfuse if hgb<8.5 Neurologic: PRN Morphine, keep patient comfortable Affect: PRN ativan Prophylaxis: Heparin Notes Reviewed: student specialist, renal 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, consultants, correctional casework specialistmanager strategic partnerships - Objective Last 24 Hour Vital Signs Date Time Temp Pulse Resp B/P (MAP) Pulse Ox O2 Delivery O2 Flow Rate FiO2 01/05/18 09:16 105 22 40 01/05/18 09:04 106 113/72 01/05/18 08:00 40 01/05/18 08:00 98.5 106 22 113/72 100 Mechanical Ventilator 40 98.5 01/05/18 08:00 106 01/05/18 06:46 102 19 100 Mechanical Ventilator 40 01/05/18 06:38 102 20 100 Mechanical Ventilator 40 01/05/18 06:38 40 01/05/18 06:33 101 20 40 01/05/18 04:42 99 21 40 01/05/18 04:00 98.3 100 22 104/60 98 Mechanical Ventilator 40 98.3 01/05/18 04:00 100 01/05/18 04:00 40 01/05/18 02:23 103 23 40 01/05/18 02:23 40 01/05/18 02:22 103 23 100 Mechanical Ventilator 40 01/05/18 01:05 93 19 40 01/05/18 00:00 40 01/05/18 00:00 105 01/05/18 00:00 98.5 80 16 120/68 100 Mechanical Ventilator 40 98.5 01/04/18 22:49 97 18 40 01/04/18 20:52 99 21 100 Mechanical Ventilator 40 01/04/18 20:45 40 01/04/18 20:44 98 20 99 Mechanical Ventilator 40 01/04/18 20:43 99 20 40 01/04/18 20:00 97.7 100 14 100/60 100 Mechanical Ventilator 40 97.7 01/04/18 20:00 105 01/04/18 20:00 40 01/04/18 19:00 107 24 40 01/04/18 16:45 94 19 99 Mechanical Ventilator 40 01/04/18 16:32 96 24 98 Mechanical Ventilator 40 01/04/18 16:32 96 26 40 01/04/18 16:32 40 01/04/18 16:00 102 01/04/18 16:00 97.5 99 20 109/75 100 Mechanical Ventilator 40 97.5 01/04/18 16:00 40 01/04/18 14:56 94 24 40 01/04/18 13:27 90 21 40 01/04/18 12:00 40 01/04/18 12:00 97.9 99 24 115/87 100 Mechanical Ventilator 40 97.9 01/04/18 12:00 100 01/04/18 10:46 87 20 99 Mechanical Ventilator 40 Status: awake Condition: critical HEENT: atraumatic Lungs: clear Heart: HR/BP stable Abdomen: soft Extremities: no C/C/E Decubiti: location Micro: Microbiology Date/Time Source Procedure Growth Status 01/02/18 19:30 Urine,Clean Catch Urine Culture - Preliminary YEAST Resulted Accucheck: 166 Critical Care - Subjective ROS Limited/Unobtainable: No Condition: critical EKG Rhythm: Sinus Rhythm FI02: 40 Vent Support Breath Rate: 8 Vent Support Mode: IMV/SIMV Vent Tidal Volume: 600 Sputum Amount: Large PEEP: 5.0 PIP: 16 I&O: Intake and Output 01/04/18 01/05/18 19:00 07:00 Intake Total 925.000 ml 367.4 ml Output Total 750 ml 400 ml Balance 175.000 ml -32.6 ml Intake Oral 500 ml IV Total 425.000 ml 367.4 ml Output Urine Total 750 ml 400 ml # Bowel Movements 2 Labs: Laboratory Tests Test 01/05/18 04:20 White Blood Count 9.1 K/UL (4.8-10.8) Red Blood Count 3.93 M/UL (4.70-6.10) L Hemoglobin 11.2 G/DL (14.2-18.0) L Hematocrit 34.3 % (42.0-52.0) L Mean Corpuscular Volume 87 FL (80-99) Mean Corpuscular Hemoglobin 28.6 PG (27.0-31.0) Mean Corpuscular Hemoglobin Concent 32.7 G/DL (32.0-36.0) Red Cell Distribution Width 11.0 % (11.6-14.8) L Platelet Count 345 K/UL (150-450) Mean Platelet Volume 6.1 FL (6.5-10.1) L Neutrophils (%) (Auto) 72.5 % (45.0-75.0) Lymphocytes (%) (Auto) 12.5 % (20.0-45.0) L Monocytes (%) (Auto) 8.0 % (1.0-10.0) Eosinophils (%) (Auto) 5.7 % (0.0-3.0) H Basophils (%) (Auto) 1.3 % (0.0-2.0) Sodium Level 136 MMOL/L (136-145) Potassium Level 3.5 MMOL/L (3.5-5.1) Chloride Level 100 MMOL/L (98-107) Carbon Dioxide Level 32 MMOL/L (21-32) Anion Gap 4 mmol/L (5-15) L Blood Urea Nitrogen 6 mg/dL (7-18) L Creatinine 0.9 MG/DL (0.55-1.30) Estimat Glomerular Filtration Rate > 60 mL/min (>60) Glucose Level 88 MG/DL (74-106) Calcium Level 9.1 MG/DL (8.5-10.1) Demetrius Andrade MD Jan 05, 2018 10:44
[2018-01-05] MEDS: Vancomycin 1gm/D5W 275ml IVPB SCH ×4 (11:58→22:56)
[2018-01-05 12:00] VITALS: BP 102/72
--- NOTE | 2018-01-05 12:02 | General Progress Note ---
Assessment/Plan Problem List: (1) HTN (hypertension) ICD Codes: I10 - Essential (primary) hypertension SNOMED: 45931129 (2) Diabetes ICD Codes: E11.9 - Type 2 diabetes mellitus without complications SNOMED: 97338630 (3) Sepsis ICD Codes: A41.9 - Sepsis, unspecified organism SNOMED: 91058429 (4) Respiratory failure ICD Codes: J96.90 - Respiratory failure, unspecified, unspecified whether with hypoxia or hypercapnia SNOMED: 866251471 (5) SOB (shortness of breath) ICD Codes: R06.02 - Shortness of breath SNOMED: 793374755 (6) DVT (deep venous thrombosis) ICD Codes: I82.409 - Acute embolism and thrombosis of unspecified deep veins of unspecified lower extremity SNOMED: 684948741 Status: stable, progressing Assessment/Plan vent abx cbc bmp am dc plan ltach Subjective Constitutional: Reports: weakness Allergies: Coded Allergies: No Known Allergies (Unverified , 06/17/16) All Systems: reviewed and negative except above Subjective trach vent asleep Objective Last 24 Hour Vital Signs Date Time Temp Pulse Resp B/P (MAP) Pulse Ox O2 Delivery O2 Flow Rate FiO2 01/05/18 11:31 96 22 100 Mechanical Ventilator 40 01/05/18 11:22 40 01/05/18 11:22 105 22 99 Mechanical Ventilator 40 01/05/18 11:20 101 21 40 01/05/18 09:16 105 22 40 01/05/18 09:04 106 113/72 01/05/18 08:00 40 01/05/18 08:00 98.5 106 22 113/72 100 Mechanical Ventilator 40 98.5 01/05/18 08:00 106 01/05/18 06:46 102 19 100 Mechanical Ventilator 40 01/05/18 06:38 102 20 100 Mechanical Ventilator 40 01/05/18 06:38 40 01/05/18 06:33 101 20 40 01/05/18 04:42 99 21 40 01/05/18 04:00 98.3 100 22 104/60 98 Mechanical Ventilator 40 98.3 01/05/18 04:00 100 01/05/18 04:00 40 01/05/18 02:23 103 23 40 01/05/18 02:23 40 01/05/18 02:22 103 23 100 Mechanical Ventilator 40 01/05/18 01:05 93 19 40 01/05/18 00:00 40 01/05/18 00:00 105 01/05/18 00:00 98.5 80 16 120/68 100 Mechanical Ventilator 40 98.5 01/04/18 22:49 97 18 40 01/04/18 20:52 99 21 100 Mechanical Ventilator 40 01/04/18 20:45 40 01/04/18 20:44 98 20 99 Mechanical Ventilator 40 01/04/18 20:43 99 20 40 01/04/18 20:00 97.7 100 14 100/60 100 Mechanical Ventilator 40 97.7 01/04/18 20:00 105 01/04/18 20:00 40 01/04/18 19:00 107 24 40 01/04/18 16:45 94 19 99 Mechanical Ventilator 40 01/04/18 16:32 96 24 98 Mechanical Ventilator 40 01/04/18 16:32 96 26 40 01/04/18 16:32 40 01/04/18 16:00 102 01/04/18 16:00 97.5 99 20 109/75 100 Mechanical Ventilator 40 97.5 01/04/18 16:00 40 01/04/18 14:56 94 24 40 01/04/18 13:27 90 21 40 Intake and Output 01/04/18 01/05/18 19:00 07:00 Intake Total 925.000 ml 367.4 ml Output Total 750 ml 400 ml Balance 175.000 ml -32.6 ml Intake Oral 500 ml IV Total 425.000 ml 367.4 ml Output Urine Total 750 ml 400 ml # Bowel Movements 2 Laboratory Tests 01/05/18 04:20: White Blood Count 9.1, Red Blood Count 3.93L, Hemoglobin 11.2L, Hematocrit 34.3L , Mean Corpuscular Volume 87, Mean Corpuscular Hemoglobin 28.6, Mean Corpuscular Hemoglobin Concent 32.7, Red Cell Distribution Width 11.0L, Platelet Count 345, Mean Platelet Volume 6.1L, Neutrophils (%) (Auto) 72.5, Lymphocytes (%) (Auto) 12.5L, Monocytes (%) (Auto) 8.0, Eosinophils (%) (Auto) 5.7H, Basophils (%) (Auto) 1.3, Sodium Level 136, Potassium Level 3.5, Chloride Level 100, Carbon Dioxide Level 32, Anion Gap 4L, Blood Urea Nitrogen 6L, Creatinine 0.9, Estimat Glomerular Filtration Rate > 60, Glucose Level 88, Calcium Level 9.1 Height (Feet): 6 Height (Inches): 3.00 Weight (Pounds): 176 General Appearance: lethargic EENT: normal ENT inspection Neck: normal alignment Cardiovascular: normal peripheral pulses, normal rate, regular rhythm Respiratory/Chest: chest wall non-tender, decreased breath sounds Abdomen: normal bowel sounds, non tender, soft Extremities: normal inspection Edema: no edema noted Arm (L), no edema noted Arm (R), no edema noted Leg (L), no edema noted Leg (R), no edema noted Pedal (L), no edema noted Pedal (R), no edema noted Generalized Neurologic: motor weakness Skin: normal pigmentation, warm/dry Elan Petersen DO Jan 05, 2018 12:02
--- NOTE | 2018-01-05 12:33 | Diagnostic Imaging Report ---
Indication: Dyspnea Comparison: 01/02/2018 A single view chest radiograph was obtained. Findings: There is infiltrate suspected in the right upper lobe. Lungs appear slightly hyperexpanded. Tracheostomy noted. Heart size is normal. IMPRESSION: Right upper lobe infiltrate suspected. Correlate clinically.
[2018-01-05 16:00] VITALS: BP 98/75
[2018-01-05 20:00] VITALS: BP 114/79
--- NOTE | 2018-01-05 20:02 | Infectious Diseases Prog Note ---
Assessment/Plan Assessment/Plan Assessment: SEpsis, SP -CT abd/p w/: Trace left and small right pleural effusions with some loculations suspected. Right pleural thickening. No intra-abdominal abscess. -u/a no pyuria; ucx yeast (colonizer) HCAP : MRSA -01/05:CXR Right upper lobe infiltrate suspected. Correlate clinically. - 01/02 CXR : [facility] -CXR: Possible small right pleural effusion versus thickening.Mild increased reticular markings at the lung bases nonspecific CONS bacteremia, and ACB in blood cx likely contaminant and concomitant with CONS and no ACB isolated in sputum cx; however given high mortality with true ABC in blood, will treat. -12/30 Bcx 4/4 CONS, 1 ACB (I Ceftriaxone; S levaquin, Ceftazidime, bactrim , Imipenem) -01/01 Bcx NTD Fever, sp leukocytosis; Sp Recent ventilator-associated pneumonia 07/2017, s/p Rx -CXR: Lungs are asymmetric with increased density in the right lung which may be due to underlying infiltrate or pleural disease. The finding is stable. Both lungs appear hyperexpanded. -sp cx #P mirabilis (S Ancef, Ceftriaxone, Zosyn, Ertapenem; R Imipenem, Cipro/Levo), +4 Serratia marcecens (S Ceftriaxone, Ertapenem) DM HTN asthma/COPD interstitial PNA hx MDR Acinetobacter and PsA PNA hx MDR Acinetobacter UTI -ucx -u/a neg; ucx >100k Proteus ( S Zosyn, levaquin, amikacin) 07/2017; colonization Colon mass s/p hemicolectomy chronic resp failure trach/vent dependant pHTN RLE DVT pulmonary nodules SNF resident hx of VRE colonization Plan: -Continue IV Vancomycin # / for MRSA PNA Continue Levaquin d# / and add IV Ceftazidime #/ for ABC in blood culture. - Sp Meropenem abx #4 -12/30 SP Levaquin x1, Zosyn #1 -07/24 SP Zosyn #14 -07/15 SP IV vanco #5 -07/12 SP Tamiflu #2 -07/11/17 Azithromycin x1 -f/u repeat Bcx x2 -f/u cx -Monitor CBC/BMP, temperatures -trach care -wound care/prevention per hospital protocol Subjective Allergies: Coded Allergies: No Known Allergies (Unverified , 06/17/16) Subjective afebrile at 40% no leukocytosis Bcx NTd Objective Vital Signs Last 24 Hour Vital Signs Date Time Temp Pulse Resp B/P (MAP) Pulse Ox O2 Delivery O2 Flow Rate FiO2 01/05/18 19:11 95 22 40 /18 16:50 98 18 40 01/05/18 16:00 101 01/05/18 16:00 40 01/05/18 16:00 97.9 101 30 98/75 100 Mechanical Ventilator 40 97.9 01/05/18 15:13 98 20 100 Mechanical Ventilator 40 01/05/18 15:02 40 01/05/18 15:02 103 20 99 Mechanical Ventilator 40 01/05/18 15:00 103 20 40 01/05/18 13:30 99 18 40 01/05/18 12:00 97.4 102 26 102/72 100 Mechanical Ventilator 40 97.4 01/05/18 12:00 101 01/05/18 12:00 40 01/05/18 11:31 96 22 100 Mechanical Ventilator 40 01/05/18 11:22 40 01/05/18 11:22 105 22 99 Mechanical Ventilator 40 01/05/18 11:20 101 21 40 01/05/18 09:16 105 22 40 01/05/18 09:04 106 113/72 01/05/18 08:00 40 01/05/18 08:00 98.5 106 22 113/72 100 Mechanical Ventilator 40 98.5 01/05/18 08:00 106 01/05/18 06:46 102 19 100 Mechanical Ventilator 40 01/05/18 06:38 102 20 100 Mechanical Ventilator 40 18 06:38 40 /18 06:33 101 20 40 18 04:42 99 21 40 18 04:00 98.3 100 22 104/60 98 Mechanical Ventilator 40 98.3 01/05/18 04:00 100 18 04:00 40 18 02:23 103 23 40 01/05/18 02:23 40 18 02:22 103 23 100 Mechanical Ventilator 40 01/05/18 01:05 93 19 40 01/05/18 00:00 40 01/05/18 00:00 105 01/05/18 00:00 98.5 80 16 120/68 100 Mechanical Ventilator 40 98.5 01/04/18 22:49 97 18 40 01/04/18 20:52 99 21 100 Mechanical Ventilator 40 01/04/18 20:45 40 01/04/18 20:44 98 20 99 Mechanical Ventilator 40 01/04/18 20:43 99 20 40 01/04/18 20:00 97.7 100 14 100/60 100 Mechanical Ventilator 40 97.7 01/04/18 20:00 105 01/04/18 20:00 40 Height (Feet): 6 Height (Inches): 3.00 Weight (Pounds): 176 Objective GENERAL: Calm in bed, oriented x3, trach vented, nonverbal. CARDIOVASCULAR: No murmur. LUNGS: Poor air exchange. ABDOMEN: Bowel sounds distant. EXTREMITIES: No cyanosis, clubbing, or edema. NEUROLOGIC: The patient moves all extremities, slightly weak, as noted trach in place. Slightly weak. Laboratory Tests Test 01/05/18 04:20 White Blood Count 9.1 K/UL (4.8-10.8) Red Blood Count 3.93 M/UL (4.70-6.10) L Hemoglobin 11.2 G/DL (14.2-18.0) L Hematocrit 34.3 % (42.0-52.0) L Mean Corpuscular Volume 87 FL (80-99) Mean Corpuscular Hemoglobin 28.6 PG (27.0-31.0) Mean Corpuscular Hemoglobin Concent 32.7 G/DL (32.0-36.0) Red Cell Distribution Width 11.0 % (11.6-14.8) L Platelet Count 345 K/UL (150-450) Mean Platelet Volume 6.1 FL (6.5-10.1) L Neutrophils (%) (Auto) 72.5 % (45.0-75.0) Lymphocytes (%) (Auto) 12.5 % (20.0-45.0) L Monocytes (%) (Auto) 8.0 % (1.0-10.0) Eosinophils (%) (Auto) 5.7 % (0.0-3.0) H Basophils (%) (Auto) 1.3 % (0.0-2.0) Sodium Level 136 MMOL/L (136-145) Potassium Level 3.5 MMOL/L (3.5-5.1) Chloride Level 100 MMOL/L (98-107) Carbon Dioxide Level 32 MMOL/L (21-32) Anion Gap 4 mmol/L (5-15) L Blood Urea Nitrogen 6 mg/dL (7-18) L Creatinine 0.9 MG/DL (0.55-1.30) Estimat Glomerular Filtration Rate > 60 mL/min (>60) Glucose Level 88 MG/DL (74-106) Calcium Level 9.1 MG/DL (8.5-10.1) Current Medications Medications (Trade) Dose Ordered Sig/Shraddha Route PRN Reason Start Time Stop Time Status Last Admin Dose Admin Acetaminophen (Tylenol) 650 mg Q4H PRN ORAL FEVER 12/30/17 21:30 01/29/18 21:29 12/30/17 23:02 Albuterol/ Ipratropium (Albuterol/ Ipratropium) 3 ml Q4H PRN HHN Shortness of Breath 01/04/18 14:30 01/09/18 14:29 01/05/18 15:03 Amlodipine Besylate (Norvasc) 5 mg DAILY ORAL 12/31/17 09:00 01/30/18 08:59 01/05/18 09:04 Dextrose (Dextrose 50%) 25 ml STAT PRN IV Hypoglycemia 12/30/17 21:30 01/29/18 21:29 Heparin Sodium (Porcine) (Heparin 5000 units/ml) 5,000 units EVERY 12 HOURS SUBQ 12/31/17 09:00 01/30/18 08:59 01/05/18 09:04 Levofloxacin 150 ml @ 100 mls/hr Q24H IVPB 01/03/18 15:00 01/10/18 14:59 01/05/18 15:46 Lorazepam (Ativan 2mg/ml 1ml) 2 mg Q2H PRN IV For Anxiety 01/04/18 11:30 01/11/18 11:29 Morphine Sulfate (Morphine Sulfate) 4 mg Q4H PRN IVP Severe Pain (Pain Scale 7-10) 12/30/17 21:30 01/06/18 21:29 Ondansetron HCl (Zofran) 4 mg Q6H PRN IVP Nausea & Vomiting 12/30/17 21:30 01/29/18 21:29 Pantoprazole (Protonix) 40 mg DAILY IV 12/31/17 09:00 01/30/18 08:59 01/05/18 08:59 Polyethylene Glycol (Miralax) 17 gm DAILYPRN PRN ORAL Constipation 12/30/17 21:30 01/29/18 21:29 Vancomycin HCl (Vanco rx to dose) 1 ea DAILY PRN MISC pharmacy to dose 12/30/17 21:45 01/29/18 21:44 Vancomycin HCl 1 gm/Dextrose 275 ml @ 183.708 mls/hr Q12HR@1100,2300 IVPB 01/01/18 23:00 01/10/18 22:59 01/05/18 11:58 Tianna Jolley M.D. Jan 05, 2018 20:02
[2018-01-05] MEDS: NS IV SCH (21:22)
[2018-01-05] MEDS: CEFTAZIDIME IV SCH (21:22)
[2018-01-06] VITALS: BP 115/53
[2018-01-06] MEDS: Albuterol/Ipratropium 3ml neb HHN PRN ×3 (03:21→14:14)
[2018-01-06 04:00] VITALS: BP 135/69
[2018-01-06] MEDS: CEFTAZIDIME IV SCH ×2 (05:29→13:53)
[2018-01-06] MEDS: NS IV SCH ×2 (05:29→13:53)
[2018-01-06 05:56] LABS: BASOPHILS % (AUTO) 1.1 % (0.0-2.0); EOSINOPHILS % (AUTO) 5.7 % (0.0-3.0); HEMATOCRIT 34.1 % (42.0-52.0); HEMOGLOBIN 11.6 G/DL (14.2-18.0); LYMPHOCYTES % (AUTO) 18.8 % (20.0-45.0); MEAN CORPUSCULAR VOLUME 87 FL (80-99); MONOCYTES % (AUTO) 6.5 % (1.0-10.0); NEUTROPHILS % (AUTO) 67.8 % (45.0-75.0); PLATELET COUNT 301 K/UL (150-450); RED CELL DISTRIBUTION WIDTH 11.2 % (11.6-14.8); WHITE BLOOD COUNT 8.6 K/UL (4.8-10.8)
[2018-01-06 06:21] LABS: ALANINE AMINOTRANSFERASE 23 U/L (12-78); ALBUMIN 2.5 G/DL (3.4-5.0); ALBUMIN/GLOBULIN RATIO 0.5 (1.0-2.7); ALKALINE PHOSPHATASE 96 U/L (46-116); ANION GAP 5 mmol/L (5-15); ASPARTATE AMINO TRANSFERASE 13 U/L (15-37); BILIRUBIN,TOTAL 0.5 MG/DL (0.2-1.0); BLOOD UREA NITROGEN 6 mg/dL (7-18); CARBON DIOXIDE 33 MMOL/L (21-32); CHLORIDE 100 MMOL/L (98-107); POTASSIUM 3.6 MMOL/L (3.5-5.1); SODIUM 138 MMOL/L (136-145)
[2018-01-06 08:00] VITALS: BP 106/65
[2018-01-06] MEDS: Pantoprazole Inj IV SCH (08:51)
[2018-01-06] MEDS: Heparin 5000 units/ml inj SUBQ SCH (08:52)
--- NOTE | 2018-01-06 09:15 | General Progress Note ---
Assessment/Plan Problem List: (1) HTN (hypertension) ICD Codes: I10 - Essential (primary) hypertension SNOMED: 05876255 (2) Diabetes ICD Codes: E11.9 - Type 2 diabetes mellitus without complications SNOMED: 28177099 (3) Sepsis ICD Codes: A41.9 - Sepsis, unspecified organism SNOMED: 39690782 (4) Respiratory failure ICD Codes: J96.90 - Respiratory failure, unspecified, unspecified whether with hypoxia or hypercapnia SNOMED: 591838429 (5) SOB (shortness of breath) ICD Codes: R06.02 - Shortness of breath SNOMED: 507145891 (6) DVT (deep venous thrombosis) ICD Codes: I82.409 - Acute embolism and thrombosis of unspecified deep veins of unspecified lower extremity SNOMED: 513712988 Status: stable, progressing Assessment/Plan vent abx dc if clear Subjective Constitutional: Reports: weakness Allergies: Coded Allergies: No Known Allergies (Unverified , 06/17/16) All Systems: reviewed and negative except above Subjective trach vent asleep Objective Last 24 Hour Vital Signs Date Time Temp Pulse Resp B/P (MAP) Pulse Ox O2 Delivery O2 Flow Rate FiO2 01/06/18 08:51 98 106/65 01/06/18 08:00 97.6 98 20 106/65 100 Mechanical Ventilator 40 97.6 01/06/18 08:00 40 01/06/18 07:43 97 01/06/18 07:29 99 20 40 01/06/18 05:28 98 18 40 01/06/18 04:00 97.5 100 22 135/69 90 Mechanical Ventilator 40 97.5 01/06/18 04:00 40 01/06/18 03:48 86 01/06/18 03:21 93 16 99 Mechanical Ventilator 40 01/06/18 03:21 40 01/06/18 03:14 92 16 40 01/06/18 01:43 99 20 40 01/06/18 00:05 99 01/06/18 00:00 98.0 77 24 115/53 99 Mechanical Ventilator 40 98.0 01/05/18 23:05 96 23 40 01/05/18 21:13 97 19 99 Mechanical Ventilator 40 01/05/18 21:13 40 01/05/18 21:12 99 23 40 01/05/18 20:00 98.8 93 17 114/79 100 Mechanical Ventilator 40 98.8 01/05/18 20:00 40 01/05/18 19:36 99 01/05/18 19:11 95 22 40 01/05/18 16:50 98 18 40 01/05/18 16:00 101 01/05/18 16:00 40 01/05/18 16:00 97.9 101 30 98/75 100 Mechanical Ventilator 40 97.9 01/05/18 15:13 98 20 100 Mechanical Ventilator 40 01/05/18 15:02 40 01/05/18 15:02 103 20 99 Mechanical Ventilator 40 01/05/18 15:00 103 20 40 01/05/18 13:30 99 18 40 01/05/18 12:00 97.4 102 26 102/72 100 Mechanical Ventilator 40 97.4 01/05/18 12:00 101 01/05/18 12:00 40 01/05/18 11:31 96 22 100 Mechanical Ventilator 40 01/05/18 11:22 40 01/05/18 11:22 105 22 99 Mechanical Ventilator 40 01/05/18 11:20 101 21 40 01/05/18 09:16 105 22 40 Intake and Output 01/05/18 01/06/18 19:00 07:00 Intake Total 925.000 ml 385.000 ml Output Total 675 ml 850 ml Balance 250.000 ml -465.000 ml Intake Oral 500 ml IV Total 425.000 ml 385.000 ml Output Urine Total 675 ml 850 ml Laboratory Tests 01/06/18 04:35: White Blood Count 8.6, Red Blood Count 3.90L, Hemoglobin 11.6L, Hematocrit 34.1L , Mean Corpuscular Volume 87, Mean Corpuscular Hemoglobin 29.8, Mean Corpuscular Hemoglobin Concent 34.1, Red Cell Distribution Width 11.2L, Platelet Count 301, Mean Platelet Volume 5.8L, Neutrophils (%) (Auto) 67.8, Lymphocytes (%) (Auto) 18.8L, Monocytes (%) (Auto) 6.5, Eosinophils (%) (Auto) 5.7H, Basophils (%) (Auto) 1.1, Sodium Level 138, Potassium Level 3.6, Chloride Level 100, Carbon Dioxide Level 33H, Anion Gap 5, Blood Urea Nitrogen 6L, Creatinine 1.0, Estimat Glomerular Filtration Rate > 60, Glucose Level 88, Calcium Level 9.0, Total Bilirubin 0.5, Aspartate Amino Transf (AST/SGOT) 13L, Alanine Aminotransferase (ALT/SGPT) 23, Alkaline Phosphatase 96, Pro-B-Type Natriuretic Peptide [Pending], Total Protein 7.5, Albumin 2.5L, Globulin 5.0, Albumin/Globulin Ratio 0.5L Height (Feet): 6 Height (Inches): 3.00 Weight (Pounds): 176 General Appearance: lethargic EENT: normal ENT inspection Neck: normal alignment Cardiovascular: normal peripheral pulses, normal rate, regular rhythm Respiratory/Chest: chest wall non-tender, lungs clear, normal breath sounds Abdomen: normal bowel sounds, non tender, soft Extremities: normal inspection Edema: no edema noted Arm (L), no edema noted Arm (R), no edema noted Leg (L), no edema noted Leg (R), no edema noted Pedal (L), no edema noted Pedal (R), no edema noted Generalized Neurologic: motor weakness Skin: normal pigmentation, warm/dry Elan Petersen DO Jan 06, 2018 09:15
[2018-01-06] MEDS: Vancomycin 1gm/D5W 275ml IVPB SCH ×2 (10:47)
[2018-01-06] MEDS ORDERED: LEVOFLOXACIN500 MG ORAL (10:51)
[2018-01-06] MEDS ORDERED: VANCOMYCIN HCL125 MG IVPB (10:51)
[2018-01-06] MEDS ORDERED: CEFTAZIDIME1 GM IJ (10:51)
--- NOTE | 2018-01-06 10:53 | Pulmonolgy Critical Care Note ---
Critical Care - Asmt/Plan Problems: (1) Acute and chronic respiratory failure (2) Fever (3) Nosocomial pneumonia (4) Hypertension (5) Hypoalbuminemia (6) Severe sepsis Respiratory: monitor respiratory rate, adjust FIO2, CXR Cardiac: continue to monitor HR/BP Renal: F/U I&O Infectious Disease: check cultures Gastrointestinal: continue feedings/current rate Endocrine: monitor blood sugar, check HgA1C Neurologic: PRN Ativan Prophylaxis: Protonix Notes Reviewed: cardio, renal 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, consultants, shelter case managercommercial finance manager - Objective Last 24 Hour Vital Signs Date Time Temp Pulse Resp B/P (MAP) Pulse Ox O2 Delivery O2 Flow Rate FiO2 01/06/18 10:45 99 19 100 Mechanical Ventilator 40 01/06/18 10:43 97 20 40 01/06/18 10:35 40 01/06/18 10:35 97 19 99 Mechanical Ventilator 40 01/06/18 09:27 99 17 40 01/06/18 08:51 98 106/65 01/06/18 08:00 97.6 98 20 106/65 100 Mechanical Ventilator 40 97.6 01/06/18 08:00 40 01/06/18 07:43 97 01/06/18 07:29 99 20 40 01/06/18 05:28 98 18 40 01/06/18 04:00 97.5 100 22 135/69 90 Mechanical Ventilator 40 97.5 01/06/18 04:00 40 01/06/18 03:48 86 01/06/18 03:21 93 16 99 Mechanical Ventilator 40 01/06/18 03:21 40 01/06/18 03:14 92 16 40 01/06/18 01:43 99 20 40 01/06/18 00:05 99 01/06/18 00:00 98.0 77 24 115/53 99 Mechanical Ventilator 40 98.0 01/05/18 23:05 96 23 40 01/05/18 21:13 97 19 99 Mechanical Ventilator 40 01/05/18 21:13 40 01/05/18 21:12 99 23 40 01/05/18 20:00 98.8 93 17 114/79 100 Mechanical Ventilator 40 98.8 01/05/18 20:00 40 01/05/18 19:36 99 01/05/18 19:11 95 22 40 01/05/18 16:50 98 18 40 01/05/18 16:00 101 01/05/18 16:00 40 01/05/18 16:00 97.9 101 30 98/75 100 Mechanical Ventilator 40 97.9 01/05/18 15:13 98 20 100 Mechanical Ventilator 40 01/05/18 15:02 40 01/05/18 15:02 103 20 99 Mechanical Ventilator 40 01/05/18 15:00 103 20 40 01/05/18 13:30 99 18 40 01/05/18 12:00 97.4 102 26 102/72 100 Mechanical Ventilator 40 97.4 01/05/18 12:00 101 01/05/18 12:00 40 01/05/18 11:31 96 22 100 Mechanical Ventilator 40 01/05/18 11:22 40 01/05/18 11:22 105 22 99 Mechanical Ventilator 40 01/05/18 11:20 101 21 40 Micro: Microbiology Date/Time Source Procedure Growth Status 01/05/18 03:00 Urine,Clean Catch Urine Culture - Preliminary YEAST Resulted Accucheck: 166 Critical Care - Subjective ROS Limited/Unobtainable: Yes Condition: critical FI02: 40 Vent Support Breath Rate: 8 Vent Support Mode: IMV/SIMV Vent Tidal Volume: 600 Sputum Amount: Moderate PEEP: 5.0 PIP: 17 I&O: Intake and Output 01/05/18 01/06/18 19:00 07:00 Intake Total 925.000 ml 385.000 ml Output Total 675 ml 850 ml Balance 250.000 ml -465.000 ml Intake Oral 500 ml IV Total 425.000 ml 385.000 ml Output Urine Total 675 ml 850 ml CXR: no change Labs: Laboratory Tests Test 01/06/18 04:35 White Blood Count 8.6 K/UL (4.8-10.8) Red Blood Count 3.90 M/UL (4.70-6.10) L Hemoglobin 11.6 G/DL (14.2-18.0) L Hematocrit 34.1 % (42.0-52.0) L Mean Corpuscular Volume 87 FL (80-99) Mean Corpuscular Hemoglobin 29.8 PG (27.0-31.0) Mean Corpuscular Hemoglobin Concent 34.1 G/DL (32.0-36.0) Red Cell Distribution Width 11.2 % (11.6-14.8) L Platelet Count 301 K/UL (150-450) Mean Platelet Volume 5.8 FL (6.5-10.1) L Neutrophils (%) (Auto) 67.8 % (45.0-75.0) Lymphocytes (%) (Auto) 18.8 % (20.0-45.0) L Monocytes (%) (Auto) 6.5 % (1.0-10.0) Eosinophils (%) (Auto) 5.7 % (0.0-3.0) H Basophils (%) (Auto) 1.1 % (0.0-2.0) Sodium Level 138 MMOL/L (136-145) Potassium Level 3.6 MMOL/L (3.5-5.1) Chloride Level 100 MMOL/L (98-107) Carbon Dioxide Level 33 MMOL/L (21-32) H Anion Gap 5 mmol/L (5-15) Blood Urea Nitrogen 6 mg/dL (7-18) L Creatinine 1.0 MG/DL (0.55-1.30) Estimat Glomerular Filtration Rate > 60 mL/min (>60) Glucose Level 88 MG/DL (74-106) Calcium Level 9.0 MG/DL (8.5-10.1) Total Bilirubin 0.5 MG/DL (0.2-1.0) Aspartate Amino Transf (AST/SGOT) 13 U/L (15-37) L Alanine Aminotransferase (ALT/SGPT) 23 U/L (12-78) Alkaline Phosphatase 96 U/L (46-116) Pro-B-Type Natriuretic Peptide Pending Total Protein 7.5 G/DL (6.4-8.2) Albumin 2.5 G/DL (3.4-5.0) L Globulin 5.0 g/dL Albumin/Globulin Ratio 0.5 (1.0-2.7) L Demetrius Andrade MD Jan 06, 2018 10:53
--- NOTE | 2018-01-06 11:42 | Diagnostic Imaging Report ---
Indication: Dyspnea Comparison: 01/05/2018 A single view chest radiograph was obtained. Findings: Infiltrate in the right lung again demonstrated without significant change. Tracheostomy noted. Heart size is stable. IMPRESSION: No change from the prior day.
[2018-01-06 12:00] VITALS: BP 111/73
--- NOTE | 2018-01-06 13:14 | Infectious Diseases Prog Note ---
Assessment/Plan Assessment/Plan Assessment: SEpsis, SP -CT abd/p w/: Trace left and small right pleural effusions with some loculations suspected. Right pleural thickening. No intra-abdominal abscess. -u/a no pyuria; ucx yeast (colonizer) HCAP : MRSA -01/06 CXR: Infiltrate in the right lung again demonstrated without significant change. -01/05:CXR Right upper lobe infiltrate suspected. Correlate clinically. - 01/02 CXR : NAPD -CXR: Possible small right pleural effusion versus thickening.Mild increased reticular markings at the lung bases nonspecific CONS bacteremia, and ACB in blood cx likely contaminant and concomitant with CONS and no ACB isolated in sputum cx; however given high mortality with true ABC in blood, will treat. -12/30 Bcx 4/ CONS, 07/10 ACB (I Ceftriaxone; S levaquin, Ceftazidime, bactrim , Imipenem) -01/01 Bcx NTD Fever, sp leukocytosis; Sp Recent ventilator-associated pneumonia 07/2017, s/p Rx -CXR: Lungs are asymmetric with increased density in the right lung which may be due to underlying infiltrate or pleural disease. The finding is stable. Both lungs appear hyperexpanded. -sp cx #P mirabilis (S Ancef, Ceftriaxone, Zosyn, Ertapenem; R Imipenem, Cipro/Levo), +4 Serratia marcecens (S Ceftriaxone, Ertapenem) DM HTN asthma/COPD interstitial PNA hx MDR Acinetobacter and PsA PNA hx MDR Acinetobacter UTI -ucx -u/a neg; ucx >100k Proteus ( S Zosyn, levaquin, amikacin) 07/2017; colonization Colon mass s/p hemicolectomy chronic resp failure trach/vent dependant pHTN RLE DVT pulmonary nodules SNF resident hx of VRE colonization Plan: -Continue IV Vancomycin # / for MRSA PNA Continue Levaquin d# and add IV Ceftazidime #2/7 for ABC in blood culture. -Ok to discharge on above regimen - Sp Meropenem abx #4 -12/30 SP Levaquin x1, Zosyn #1 -07/24 SP Zosyn #14 -07/15 SP IV vanco #5 -07/12 SP Tamiflu #2 -07/11/17 Azithromycin x1 -f/u repeat Bcx x2 -f/u cx -Monitor CBC/BMP, temperatures -trach care -wound care/prevention per hospital protocol Discussed with RN. Subjective Allergies: Coded Allergies: No Known Allergies (Unverified , 06/17/16) Subjective afebrile at 40% no leukocytosis Bcx NTd Objective Vital Signs Last 24 Hour Vital Signs Date Time Temp Pulse Resp B/P (MAP) Pulse Ox O2 Delivery O2 Flow Rate FiO2 01/06/18 12:00 40 01/06/18 12:00 97.6 106 24 111/73 100 Mechanical Ventilator 40 97.6 01/06/18 10:45 99 19 100 Mechanical Ventilator 40 01/06/18 10:43 97 20 40 01/06/18 10:35 40 01/06/18 10:35 97 19 99 Mechanical Ventilator 40 01/06/18 09:27 99 17 40 01/06/18 08:51 98 106/65 01/06/18 08:00 97.6 98 20 106/65 100 Mechanical Ventilator 40 97.6 01/06/18 08:00 40 01/06/18 07:43 97 01/06/18 07:29 99 20 40 01/06/18 05:28 98 18 40 01/06/18 04:00 97.5 100 22 135/69 90 Mechanical Ventilator 40 97.5 01/06/18 04:00 40 01/06/18 03:48 86 01/06/18 03:21 93 16 99 Mechanical Ventilator 40 01/06/18 03:21 40 01/06/18 03:14 92 16 40 01/06/18 01:43 99 20 40 01/06/18 00:05 99 01/06/18 00:00 98.0 77 24 115/53 99 Mechanical Ventilator 40 98.0 01/05/18 23:05 96 23 40 01/05/18 21:13 97 19 99 Mechanical Ventilator 40 01/05/18 21:13 40 01/05/18 21:12 99 23 40 01/05/18 20:00 98.8 93 17 114/79 100 Mechanical Ventilator 40 98.8 01/05/18 20:00 40 01/05/18 19:36 99 01/05/18 19:11 95 22 40 01/05/18 16:50 98 18 40 01/05/18 16:00 101 01/05/18 16:00 40 01/05/18 16:00 97.9 101 30 98/75 100 Mechanical Ventilator 40 97.9 01/05/18 15:13 98 20 100 Mechanical Ventilator 40 01/05/18 15:02 40 01/05/18 15:02 103 20 99 Mechanical Ventilator 40 01/05/18 15:00 103 20 40 01/05/18 13:30 99 18 40 Height (Feet): 6 Height (Inches): 3.00 Weight (Pounds): 176 Objective GENERAL: Calm in bed, oriented x3, trach vented, nonverbal. CARDIOVASCULAR: No murmur. LUNGS: Poor air exchange. ABDOMEN: Bowel sounds distant. EXTREMITIES: No cyanosis, clubbing, or edema. NEUROLOGIC: The patient moves all extremities, slightly weak, as noted trach in place. Slightly weak. Microbiology Date/Time Source Procedure Growth Status 01/05/18 03:00 Urine,Clean Catch Urine Culture - Preliminary YEAST Resulted Laboratory Tests Test 01/06/18 04:35 White Blood Count 8.6 K/UL (4.8-10.8) Red Blood Count 3.90 M/UL (4.70-6.10) L Hemoglobin 11.6 G/DL (14.2-18.0) L Hematocrit 34.1 % (42.0-52.0) L Mean Corpuscular Volume 87 FL (80-99) Mean Corpuscular Hemoglobin 29.8 PG (27.0-31.0) Mean Corpuscular Hemoglobin Concent 34.1 G/DL (32.0-36.0) Red Cell Distribution Width 11.2 % (11.6-14.8) L Platelet Count 301 K/UL (150-450) Mean Platelet Volume 5.8 FL (6.5-10.1) L Neutrophils (%) (Auto) 67.8 % (45.0-75.0) Lymphocytes (%) (Auto) 18.8 % (20.0-45.0) L Monocytes (%) (Auto) 6.5 % (1.0-10.0) Eosinophils (%) (Auto) 5.7 % (0.0-3.0) H Basophils (%) (Auto) 1.1 % (0.0-2.0) Sodium Level 138 MMOL/L (136-145) Potassium Level 3.6 MMOL/L (3.5-5.1) Chloride Level 100 MMOL/L (98-107) Carbon Dioxide Level 33 MMOL/L (21-32) H Anion Gap 5 mmol/L (5-15) Blood Urea Nitrogen 6 mg/dL (7-18) L Creatinine 1.0 MG/DL (0.55-1.30) Estimat Glomerular Filtration Rate > 60 mL/min (>60) Glucose Level 88 MG/DL (74-106) Calcium Level 9.0 MG/DL (8.5-10.1) Total Bilirubin 0.5 MG/DL (0.2-1.0) Aspartate Amino Transf (AST/SGOT) 13 U/L (15-37) L Alanine Aminotransferase (ALT/SGPT) 23 U/L (12-78) Alkaline Phosphatase 96 U/L (46-116) Pro-B-Type Natriuretic Peptide 83 pg/mL (0-125) Total Protein 7.5 G/DL (6.4-8.2) Albumin 2.5 G/DL (3.4-5.0) L Globulin 5.0 g/dL Albumin/Globulin Ratio 0.5 (1.0-2.7) L Current Medications Medications (Trade) Dose Ordered Sig/Shraddha Route PRN Reason Start Time Stop Time Status Last Admin Dose Admin Acetaminophen (Tylenol) 650 mg Q4H PRN ORAL FEVER 12/30/17 21:30 01/29/18 21:29 12/30/17 23:02 Albuterol/ Ipratropium (Albuterol/ Ipratropium) 3 ml Q4H PRN HHN Shortness of Breath 01/04/18 14:30 01/09/18 14:29 01/06/18 10:39 Amlodipine Besylate (Norvasc) 5 mg DAILY ORAL 12/31/17 09:00 01/30/18 08:59 01/06/18 08:51 Ceftazidime 1 gm/ Sodium Chloride 55 ml @ 110 mls/hr Q8HR IV 01/05/18 22:00 01/12/18 21:59 01/06/18 05:29 Dextrose (Dextrose 50%) 25 ml STAT PRN IV Hypoglycemia 12/30/17 21:30 01/29/18 21:29 Heparin Sodium (Porcine) (Heparin 5000 units/ml) 5,000 units EVERY 12 HOURS SUBQ 12/31/17 09:00 01/30/18 08:59 01/06/18 08:52 Levofloxacin 150 ml @ 100 mls/hr Q24H IVPB 01/03/18 15:00 01/10/18 14:59 01/05/18 15:46 Lorazepam (Ativan 2mg/ml 1ml) 2 mg Q2H PRN IV For Anxiety 01/04/18 11:30 01/11/18 11:29 Morphine Sulfate (Morphine Sulfate) 4 mg Q4H PRN IVP Severe Pain (Pain Scale 7-10) 12/30/17 21:30 01/06/18 21:29 Ondansetron HCl (Zofran) 4 mg Q6H PRN IVP Nausea & Vomiting 12/30/17 21:30 01/29/18 21:29 Pantoprazole (Protonix) 40 mg DAILY IV 12/31/17 09:00 01/30/18 08:59 01/06/18 08:51 Polyethylene Glycol (Miralax) 17 gm DAILYPRN PRN ORAL Constipation 12/30/17 21:30 01/29/18 21:29 Vancomycin HCl (Vanco rx to dose) 1 ea DAILY PRN MISC pharmacy to dose 12/30/17 21:45 01/29/18 21:44 Vancomycin HCl 1 gm/Dextrose 275 ml @ 183.708 mls/hr Q12HR@1100,2300 IVPB 01/01/18 23:00 01/10/18 22:59 01/06/18 10:47 Tianna Jolley M.D. Jan 06, 2018 13:14
--- NOTE | 2018-01-08 11:14 | Discharge Summary ---
Discharge Summary Discharge Summary _ DATE OF ADMISSION: 12/30/2017 DATE OF DISCHARGE: 01/06/2018 REASON FOR ADMISSION: 67 years old male with past medical history significant for chronic respiratory failure ,tracheostomy status, COPD ,hypertension, diabetes,colon mass, s/p hemicolectomy, pulmonary nodules, was sent from subacute facility due to cough, congestion, shortness of breath for one week. Upon evaluation patient was afebrile, tachycardic ,saturation was 96% on 36% of FiO2. Chest x-ray x-ray revealed possible small right pleural effusion versus thickening. Venous duplex bilateral lower extremity was negative. Laboratory workup revealed no leukocytosis ,hemoglobin 12.9 hematocrit 39.2 , stable renal parameters ,electrolytes. Lactic acid 2.0. Urinalysis with no evidence of UTI. Patient admitted with diagnosis acute and chronic respiratory failure, possible pneumonia, possible sepsis, COPD. CONSULTANTS: pulmonary Dr. Andrade ID specialist Dr. Trujillo [facility]SE: Patient admitted to [facility]. Patient was connected to ventilator. Ventilator support and tracheostomy care were provided . Baseline ABG was stable on current settings, settings were kept as is . Anticipate weaning from ventilator to tracheal collar in the subacute facility when ready. Pulmonary toilet provided around the clock and as needed. Sputum culture revealed MRSA. Patient was followed up with serial chest x-ray, no significant improvement. Continue antibiotics upon discharge. Blood culture initially revealed Staphylococcus coagulase negative and Acinetobacter ; repeated blood culture were negative. Urine culture revealed Love, likely colonization, no treatment necessary. Patient was on on antibiotic for treatment of pneumonia and possible bacteremia. No Acinetobacter isolated in sputum culture, however given high mortality with true Acinetobacter in blood, patient was treated as pr ID recommendations. CT of the abdomen and pelvis revealed no evidence of intra-abdominal abscess. Patient will need to compete antibiotics as per ID recommendations as outlined in medication reconciliation list . Pain management was addressed DVT and GI prophylaxis provided Blood pressure was managed with calcium channel marguerite . Bowel regimen was instituted. Patient will need to repeat CT chest at some point to evaluate for pulmonary nodules , given history of prior pulmonary nodules, colon mass, status post hemicolectomy. Blood sugar was managed with sliding scale of insulin , remained stable . Patient clinically improved and was stable for discharge back to subacute custodial facility FINAL DIAGNOSES: Acute on chronic respiratory failure Sepsis Pneumonia. with MRSA Hypertension COPD Colon mass, status post hemicolectomy Pulmonary nodules Diabetes mellitus DISCHARGE MEDICATIONS: See Medication Reconciliation list. DISCHARGE INSTRUCTIONS: Patient was discharged to subacute custodial facility follow-up with a bus or truck garage mechanic in internal medicine doctor at the facility. Complete the course of antibiotics as outlined in medication reconciliation Katia Sequeira NP Jan 08, 2018 11:14
== END 2018-01-06 15:47 | DRG 870 ==
LOC: EDBD 18:35 → EDUNIT# 18:35 → EMR 19:37 → 2W 19:45 → EDBEDREQ 20:05 → 2W 21:20
PROC: 5A1955Z Respiratory Ventilation, Greater than 96 Consecutive Hours (ICD-10-PCS; principal; 2017-12-30)
DX: A41.9 Sepsis, unspecified organism (principal); J96.20 Acute and chronic respiratory failure, unspecified whether with hypoxia or hypercapnia; J15.212 Pneumonia due to Methicillin resistant Staphylococcus aureus; J44.0 Chronic obstructive pulmonary disease with (acute) lower respiratory infection; J44.1 Chronic obstructive pulmonary disease with (acute) exacerbation; Z99.11 Dependence on respirator [ventilator] status; R65.20 Severe sepsis without septic shock; I10 Essential (primary) hypertension; E11.9 Type 2 diabetes mellitus without complications; Z86.718 Personal history of other venous thrombosis and embolism; Z93.0 Tracheostomy status; Z85.038 Personal history of other malignant neoplasm of large intestine
CPT/HCPCS: 36415; 71045; 74177; 80048; 80053; 80069; 80202; 81001; 81003; 82550; 82553; 82962; 83605; 83880; 84484; 85025; 87040; 87070; 87081; 87086; 87181; 87205; 93005; 93970; 94002; 94003; 94640; 99285; J7620

== ENCOUNTER 2018-02-26 18:11 | Inpatient (IN) | payer MEDICARE, OTHER, MEDICAID ==
[~2018-02-26] VITALS: Ht 162.6 cm; Wt 82.1 kg
[~2018-02-26 18:11] MED LIST changes: +ACETAMINOP160 MG/5 M ORAL; +CEFTAZIDIME1 GM IJ; +LEVOFLOXACIN500 MG ORAL; +NORCO 5-325 TA1 EACH ORAL; +VANCOMYCIN HCL125 MG IVPB
[2018-02-26] MEDS ORDERED: Sodium Chloride 500ML 500 ML IV ONE (18:27)
[2018-02-26 18:30] VITALS: BP 136/98
[2018-02-26] MEDS ORDERED: Isovue-300 100ml vial INJ PRN (18:30)
[2018-02-26] MEDS ORDERED: Solu-MEDROL 125mg Inj IVP ONE (18:30)
[2018-02-26] MEDS: Albuterol ud Inhalation HHN SCH ×3 (18:57→19:19)
[2018-02-26] MEDS: Ipratropium 0.02% Inh Soln 2.5ml UD HHN SCH ×3 (18:57→19:19)
[2018-02-26 19:09] LABS: BASOPHILS % (AUTO) 2.9 % (0.0-2.0); EOSINOPHILS % (AUTO) 11.4 % (0.0-3.0); HEMATOCRIT 41.3 % (42.0-52.0); HEMOGLOBIN 14.2 G/DL (14.2-18.0); LYMPHOCYTES % (AUTO) 30.5 % (20.0-45.0); MEAN CORPUSCULAR VOLUME 88 FL (80-99); MONOCYTES % (AUTO) 7.3 % (1.0-10.0); PLATELET COUNT 280 K/UL (150-450); WHITE BLOOD COUNT 7.5 K/UL (4.8-10.8)
[2018-02-26 19:39] LABS: APPEARANCE,URINE CLEAR; BILIRUBIN, URINE NEGATIVE (NEGATIVE); COLOR,URINE PALE YELLOW; GLUCOSE, URINE (UA) NEGATIVE (NEGATIVE); KETONES,URINE NEGATIVE (NEGATIVE); LEUKOCYTE ESTERASE ,URINE NEGATIVE (NEGATIVE); NITRITE,URINE NEGATIVE (NEGATIVE); PH,URINE 5 (4.5-8.0); PROTEIN,URINE NEGATIVE (NEGATIVE); UROBILINOGEN,URINE NORMAL MG/DL (0.0-1.0)
[2018-02-26 19:42] LABS: ANION GAP 7 mmol/L (5-15); BLOOD UREA NITROGEN 15 mg/dL (7-18); CARBON DIOXIDE 28 MMOL/L (21-32); CHLORIDE 104 MMOL/L (98-107); CREATININE 1.1 MG/DL (0.55-1.30); POTASSIUM 4.5 MMOL/L (3.5-5.1); SODIUM 139 MMOL/L (136-145)
[2018-02-26 19:57] LABS: ALANINE AMINOTRANSFERASE 27 U/L (12-78); ALKALINE PHOSPHATASE 135 U/L (46-116); ASPARTATE AMINO TRANSFERASE 24 U/L (15-37); BILIRUBIN,TOTAL 0.3 MG/DL (0.2-1.0); CKMB 2.3 NG/ML (0.0-3.6); CREATINE KINASE 182 U/L (26-308)
[2018-02-26 20:11] LABS: ALBUMIN/GLOBULIN RATIO 0.6 (1.0-2.7)
[2018-02-26] MEDS ORDERED: Azithromycin 500 MG in NS 275 ML IV ONE (21:00)
[2018-02-26] MEDS ORDERED: Piperacillin/Tazobactam 3.375 GM in NS 110 ML IVPB ONE (21:00)
[2018-02-26] MEDS ORDERED: LORazepam Inj 2mg/ml 1ml IV PRN (21:30)
[2018-02-26] MEDS ORDERED: Miralax 17gm pkt ORAL PRN (21:30)
--- NOTE | 2018-02-26 21:45 | Emergency Room Report ---
History of Present Illness General Chief Complaint: Dyspnea/Respdistress Source: Patient, Medical Record Present Illness HPI 67-year-old male presents ED for evaluation. Patient coming from [facility] facility. Complaining of shortness of breath times one week. Patient has a trach and is vent dependent. Patient is complaining of tightness in his throat and difficulty with deep breaths. History of asthma. Denies chest pain. Denies fevers or chills. Denies difficulty swallowing. No other aggravating relieving factors. 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 Hx Gastrointestinal Problems: Yes Hx Dialysis: No Hx Neurological Problems: Yes - Metabolic encephalopathy Hx Cerebrovascular Accident: No Hx Seizures: No Hx Concentration Difficulty: Yes Hx Dysphasia: Yes - dysphagia Hx Weakness: Yes Review of Systems All Other Systems: negative except mentioned in HPI Physical Exam Vital Signs Date Time Temp Pulse Resp B/P (MAP) Pulse Ox O2 Delivery O2 Flow Rate FiO2 02/26/18 18:06 98.7 97 26 110/80 97 Mechanical Ventilator 40 98.8 Sp02 EP Interpretation: reviewed, normal General Appearance: no apparent distress, alert, GCS 15, non-toxic Head: normocephalic, atraumatic Eyes: bilateral eye normal inspection, bilateral eye PERRL ENT: hearing grossly normal, normal pharynx, no angioedema, normal voice Neck: full range of motion, supple/symm/no masses, other - stridor, tracheotomy Respiratory: chest non-tender, normal breath sounds, speaking full sentences, wheezing Cardiovascular #1: regular rate, rhythm, no edema Cardiovascular #2: 2+ carotid (R), 2+ carotid (L), 2+ radial (R), 2+ radial (L) , 2+ dorsalis pedis (R), 2+ dorsalis pedis (L) Gastrointestinal: normal bowel sounds, non tender, soft, non-distended, no guarding, no rebound Rectal: deferred Genitourinary: normal inspection, no CVA tenderness Musculoskeletal: back normal, gait/station normal, normal range of motion, non- tender Neurologic: alert, oriented x3, responsive, motor strength/tone normal, sensory intact, speech normal Psychiatric: judgement/insight normal, memory normal, mood/affect normal, no suicidal/homicidal ideation Reflexes: 3+ bicep (R), 3+ bicep (L), 3+ tricep (R), 3+ tricep (L), 3+ knee (R) , 3+ knee (L) Skin: normal color, no rash, warm/dry, well hydrated Lymphatic: no adenopathy Medical Decision Making Diagnostic Impression: Primary Impression: Pneumonia Qualified Codes: J18.1 - Lobar pneumonia, unspecified organism Additional Impressions: Stridor Chronic respiratory failure Qualified Codes: J96.10 - Chronic respiratory failure, unspecified whether with hypoxia or hypercapnia ER Course Hospital Course 67-year-old M presenting to ED with stridor, difficulty breathing Differential diagnoses include: Pneumonia, airway obstruction, displaced tracheostomy Clinical course Patient placed on stretcher. On quality assurance monitor final with stable vitals. After initial history and physical, I ordered nebulizer treatments, solumedrol. I ordered labs, IV fluids, EKG, chest x-ray, blood cultures, UA. Patient connected ventilator. Good peak pressures Labs -no leukocytosis, hemoglobin/hematocrit stable, electrolytes okay, lactate okay troponins negative CXR - R ? infiltrate, trach in place CT neck/chest - trach in place. No evidence of airway obstruction. CT chest shows right lower lobe pneumonia. given abx Case discussed with Dr. Petersen and he agreed to the patient to his service for further care and support I feel this is a highly complex case requiring extensive working including EKG/ Rhythm strip, Xray/CT/US, Blood/urine lab work, repeat exams while in ED, and administration of strong opiates/narcotics for pain control, admission to hospital or close patient follow up. Diagnosis - pneumonia, stridor, chronic respiratory failure Patient admitted to SDU in serious condition Labs Test 02/26/18 18:30 02/26/18 19:10 White Blood Count 7.5 K/UL (4.8-10.8) Red Blood Count 4.70 M/UL (4.70-6.10) Hemoglobin 14.2 G/DL (14.2-18.0) Hematocrit 41.3 % (42.0-52.0) Mean Corpuscular Volume 88 FL (80-99) Mean Corpuscular Hemoglobin 30.1 PG (27.0-31.0) Mean Corpuscular Hemoglobin Concent 34.3 G/DL (32.0-36.0) Red Cell Distribution Width 12.0 % (11.6-14.8) Platelet Count 280 K/UL (150-450) Mean Platelet Volume 6.6 FL (6.5-10.1) Neutrophils (%) (Auto) 48.0 % (45.0-75.0) Lymphocytes (%) (Auto) 30.5 % (20.0-45.0) Monocytes (%) (Auto) 7.3 % (1.0-10.0) Eosinophils (%) (Auto) 11.4 % (0.0-3.0) Basophils (%) (Auto) 2.9 % (0.0-2.0) Sodium Level 139 MMOL/L (136-145) Potassium Level 4.5 MMOL/L (3.5-5.1) Chloride Level 104 MMOL/L (98-107) Carbon Dioxide Level 28 MMOL/L (21-32) Anion Gap 7 mmol/L (5-15) Blood Urea Nitrogen 15 mg/dL (7-18) Creatinine 1.1 MG/DL (0.55-1.30) Estimat Glomerular Filtration Rate > 60 mL/min (>60) Glucose Level 107 MG/DL (74-106) Lactic Acid Level 1.20 mmol/L (0.4-2.0) Calcium Level 9.0 MG/DL (8.5-10.1) Total Bilirubin 0.3 MG/DL (0.2-1.0) Aspartate Amino Transf (AST/SGOT) 24 U/L (15-37) Alanine Aminotransferase (ALT/SGPT) 27 U/L (12-78) Alkaline Phosphatase 135 U/L (46-116) Total Creatine Kinase 182 U/L (26-308) Creatine Kinase MB 2.3 NG/ML (0.0-3.6) Creatine Kinase MB Relative Index 1.2 Troponin I 0.000 ng/mL (0.000-0.056) Pro-B-Type Natriuretic Peptide 41 pg/mL (0-125) Total Protein 8.1 G/DL (6.4-8.2) Albumin 3.0 G/DL (3.4-5.0) Globulin 5.1 g/dL Albumin/Globulin Ratio 0.6 (1.0-2.7) Urine Color Pale yellow Urine Appearance Clear Urine pH 5 (4.5-8.0) Urine Specific [place] 1.020 (1.005-1.035) Urine Protein Negative (NEGATIVE) Urine Glucose (UA) Negative (NEGATIVE) Urine Ketones Negative (NEGATIVE) Urine Blood 4+ (NEGATIVE) Urine Nitrite Negative (NEGATIVE) Urine Bilirubin Negative (NEGATIVE) Urine Urobilinogen Normal MG/DL (0.0-1.0) Urine Leukocyte Esterase Negative (NEGATIVE) Urine RBC 5-10 /HPF (0 - 0) Urine WBC 0-2 /HPF (0 - 0) Urine Squamous Epithelial Cells None /LPF (NONE/OCC) Urine Bacteria Occasional /HPF (NONE) EKG Diagnostic Results Rate: normal Rhythm: NSR ST Segments: no acute changes ASA given to the pt in ED: No Rhythm Strip Diag. Results EP Interpretation: yes Rhythm: NSR, no PVC's, no ectopy Chest X-Ray Diagnostic Results Chest X-Ray Diagnostic Results : Chest X-Ray Ordered: Yes # of Views/Limited/Complete: 1 View Indication: Shortness of Breath EP Interpretation: Yes Interpretation: no pneumothorax, other - atelectasis/consolidation in lower lobes Impression: Other - ?PNA Electronically Signed by: Electronically signed by Donell Bauer MD CT/MRI/US Diagnostic Results CT/MRI/US Diagnostic Results #1: Imaging Test Ordered: CT Neck Impression trach in place. no acute process CT/MRI/US Diagnostic Results #2: Imaging Test Ordered: CT Chest Impression pneumonia in R lower lobe. apical bullous on right Last Vital Signs Date Time Temp Pulse Resp B/P (MAP) Pulse Ox O2 Delivery O2 Flow Rate FiO2 02/26/18 18:06 98.7 97 26 110/80 97 Mechanical Ventilator 40 98.8 Status: improved Disposition: ADMITTED INPATIENT Condition: Serious Referrals: Elan Petersen DO (PCP) Donell Bauer MD Feb 26, 2018 21:45
[2018-02-26] MEDS ORDERED: NORCO 5-325 TA1 EACH ORAL (21:47)
[2018-02-26] MEDS ORDERED: MIRALAX17 G2 ORAL (21:47)
[2018-02-26] MEDS ORDERED: ZOFRAN4 M3 ORAL (21:47)
[2018-02-26] MEDS ORDERED: PROTONIX40 MG ORAL (21:47)
[2018-02-26 22:30] VITALS: BP_SYST 120; BP_SYST 122; BP_DIAS 76; BP_DIAS 97
[2018-02-26] MEDS ORDERED: Vancomycin 1250mg/D5W 250ml IVPB SCH (22:30)
[2018-02-26] MEDS: Morphine Sulfate 4mg/ml Inj (IV USE ONLY) IVP PRN (23:08)
[2018-02-26] MEDS: Heparin 5000 units/ml inj SUBQ SCH (23:12)
[2018-02-26] MEDS: Promethazine Plain 6.25mg/5ml ORAL PRN (23:46)
[2018-02-27] VITALS: BP 127/92
[2018-02-27] MEDS: Albuterol/Ipratropium 3ml neb HHN PRN ×4 (02:31→16:48)
[2018-02-27 04:00] VITALS: BP 102/75
[2018-02-27 06:11] LABS: HEMATOCRIT 42.3 % (42.0-52.0); HEMOGLOBIN 13.7 G/DL (14.2-18.0); MEAN CORPUSCULAR VOLUME 89 FL (80-99); PLATELET COUNT 313 K/UL (150-450); RED BLOOD COUNT 4.77 M/UL (4.70-6.10); RED CELL DISTRIBUTION WIDTH 11.9 % (11.6-14.8)
[2018-02-27 06:20] LABS: ALBUMIN 3.2 G/DL (3.4-5.0); ANION GAP 5 mmol/L (5-15); BLOOD UREA NITROGEN 18 mg/dL (7-18); CALCIUM 9.5 MG/DL (8.5-10.1); CARBON DIOXIDE 33 MMOL/L (21-32); CHLORIDE 104 MMOL/L (98-107); CREATININE 1.3 MG/DL (0.55-1.30); PHOSPHORUS 2.8 MG/DL (2.5-4.9); POTASSIUM 4.8 MMOL/L (3.5-5.1); SODIUM 142 MMOL/L (136-145)
[2018-02-27 08:00] VITALS: BP 122/74
--- NOTE | 2018-02-27 08:39 | Diagnostic Imaging Report ---
Indication: Shortness of breath Technique: One view of the chest Comparison: 01/06/2018 Findings: There is hyperinflation of the left lung again demonstrated. No acute infiltrates, effusions, or congestion. Tracheostomy remains. Previously demonstrated right-sided costophrenic angle blunting is no longer evident. The heart size is normal Impression: No acute process COPD Tracheostomy
--- NOTE | 2018-02-27 09:07 | Diagnostic Imaging Report ---
Clinical Indication: Throat pain. Suspected foreign body Technique: IV administration nonionic contrast. Spiral acquisition obtained through the chest. Multiplanar reconstructions generated. Total dose length product 1559 mGycm. CTDIvol(s) 22, 20 mGy. Dose reduction achieved using automated exposure control Comparison: 11/14/2016 Findings: Previously demonstrated extensive parenchymal consolidation has resolved on the left, markedly improved on the right, with some residual posterior consolidation or scarring persisting, which appear to been developing at the time of the prior study. Some bullous changes in the right lung apex are again noted, obscured by surrounding parenchymal disease on the previous exam, but apparent on an earlier chest CT dated 08/12/2016.. There is generalized increased volume loss of the right lower lobe with crowding of the bronchovascular markings, although this may be related to degree of inspiration at the time of scanning. There is also bronchial wall thickening of multiple bronchi, particularly the right lower lobe. Some scarring is seen at the left lung base. The left lung is otherwise clear. The pleural spaces are clear. Note that a abdomen pelvis CT of 01/03/2018 demonstrated parenchymal disease and right-sided pleural effusion at the lung bases which is much more extensive than seen currently. Tracheostomy is again demonstrated. The heart size is normal. There is a small amount of pleural thickening versus fluid. No mediastinal or hilar mass or adenopathy. Included portions of the thyroid are unremarkable. No axillary or chest wall mass or adenopathy, although right axillary nodes are somewhat abundant. The included upper abdominal viscera are unremarkable. The esophagus is unremarkable. The bones demonstrate degenerative spondylosis changes. . Impression: Consolidation and volume loss within the posterior superior segment right upper lobe, consistent with pneumonia. Review of prior imaging studies, however, indicates more extensive disease was present previously, so this probably represents residua from previous acute episodes, although it could represent recurrent acute disease Cystic space within the apex of the right lower lobe, evident also on 11/14/2017, may reflect residua of a previous lung abscess, versus a bulla Previously demonstrated left lung disease is largely resolved, with only minimal scarring at the left lung base Diffuse hyperinflation, consistent with COPD changes This agrees with the preliminary interpretation provided overnight by [facility] teleradiology service. The CT scanner at [facility] is accredited by the [employer] and the scans are performed using protocols designed to limit radiation exposure to as low as reasonably achievable to attain images of sufficient resolution adequate for diagnostic evaluation.
--- NOTE | 2018-02-27 09:10 | Diagnostic Imaging Report ---
Indication: Throat pain, possible foreign body Technique: IV administration nonionic contrast. Spiral acquisitions obtained through the neck. Multiplanar reconstructions were generated. Total dose length product 1559 mGycm. CTDIvol(s) 22, 20 mGy. Dose reduction achieved using automated exposure control Comparison: none Findings: There is a tracheostomy. No radiopaque foreign body demonstrated. The esophagus appears unremarkable. The included thyroid appears unremarkable. Visualized sinuses, nasopharynx, hypopharynx appear unremarkable, allowing for some asymmetry resulting from rotation of the head. No cervical mass or adenopathy. No prevertebral soft tissue swelling. Upper pulmonary findings are discussed in separate chest CT report. The bones are remarkable for degenerative cervical spondylosis. Impression: No definite acute process Appropriate tracheostomy position No evidence of radiopaque foreign body This agrees with the preliminary interpretation provided overnight by [facility] service. The CT scanner at [facility] is accredited by the [employer] and the scans are performed using protocols designed to limit radiation exposure to as low as reasonably achievable to attain images of sufficient resolution adequate for diagnostic evaluation.
[2018-02-27] MEDS: Pantoprazole Inj IV SCH (09:28)
[2018-02-27] MEDS: Heparin 5000 units/ml inj SUBQ SCH ×2 (09:31→20:50)
[2018-02-27] MEDS: Vancomycin 750mg/NS 250ml IVPB SCH ×2 (10:14→22:15)
--- NOTE | 2018-02-27 10:57 | Consultation ---
History of Present Illness General Date patient seen: Feb 27, 2018 Chief Complaint: Dyspnea/Respdistress Present Illness HPI 67-year-old male with hx of Emphysema, trach and vent dependent.presents ED for evaluation of shortness of breath times for one week. Patient is complaining of tightness in his throat and difficulty with deep breaths. Denies chest pain. Denies fevers or chills. Denies difficulty swallowing. No other aggravating relieving factors. Denies any other associated symptoms. Pt had a CT of chest in ER showin Bilateral pneumonia. He is admitted to [facility] for further treatment. Allergies: Coded Allergies: No Known Allergies (Unverified , 06/17/16) Medication History Scheduled Amlodipine Besylate (Norvasc), 5 MG ORAL DAILY, (Reported) Ceftazidime Pentahydrate (Ceftazidime), 1 GM IJ EVERY 8 HOURS Cran/Vitc/Mannose/Inulin/Brom (Uti-Stat Liquid), 3,875 MG PO DAILY, (Reported) Docusate Sodium* (Colace*), 100 MG ORAL DAILY, (Reported) Folic Acid* (Folic Acid*), 1 MG ORAL DAILY, (Reported) Levofloxacin (Levofloxacin*), 500 MG ORAL DAILY Multivitamin Liquid* (Multi-Delyn*), 15 ML ORAL DAILY, (Reported) Pantoprazole* (Protonix*), 40 MG ORAL DAILY, (Reported) Kjqfqzzyzlew-Bovx-Snweddrl,Iso (Zosyn 3.375 Gm Pre Mix-Bag), 3.375 GM IVPB EVERY 8 HOURS Ranitidine Hcl* (Zantac*), 150 MG ORAL DAILY, (Reported) Vit C/Ascorbate Ca/Ascorb Sod (Vitamin C 500 Mg/15 Ml Liquid), 500 MG GT DAILY, (Reported) Zinc Sulfate (Zinc Sulfate*), 220 MG ORAL DAILY, (Reported) Scheduled PRN Acetaminophen 160MG/5ML* (Acetaminophen*), 20 ML ORAL Q4HR PRN for Fever/ Headache/Mild Pain, (Reported) Albuterol Sulfate* (Albuterol Sulfate Hhn*), 3 ML INH Q6HR PRN for Shortness of breath, (Reported) Bisacodyl (Dulcolax), 10 MG RC for Constipation, (Reported) Diphenhydramine Hcl* (Benadryl*), 25 MG ORAL Q8HR PRN for Itching, (Reported) Diphenoxylate Hcl/Atropine (Diphenoxylate-Atropine Tablet), 1 EACH PO Q4HR PRN for Diarrhea, (Reported) Guaifenesin* (Guaifenesin), 5 ML ORAL Q6H PRN for For Cough, (Reported) Hydrocodone Bit/Acetaminophen 5-325* ([place] 5-325*), 1 TAB ORAL Q6H PRN for For Pain, (Reported) Hydrocodone Bit/Acetaminophen 5-325* ([place] 5-325*), 1 TAB ORAL Q6H PRN for For Pain, (Reported) Magnesium Hydroxide* (Milk Of Magnesia*), 30 ML ORAL QHS PRN for Constipation, ( Reported) Na Phos,M-B/Na Phos,Di-Ba* (Fleet Enema*), 118 ML RECTAL for Constipation, ( Reported) Ondansetron* (Zofran*), 4 MG ORAL Q6H PRN for Nausea & Vomiting, (Reported) Polyethylene Glycol 3350* (Miralax*), 17 GM ORAL DAILY PRN for Constipation, ( Reported) Promethazine HCl (Promethazine HCl), 5 ML ORAL Q6H PRN for For Cough, (Reported) Vancomycin Hcl (Vancomycin Hcl), 1 GM IVPB EVERY 12 HOURS PRN Miscellaneous Medications Vit C/Ascorbate Ca/Ascorb Sod (Vitamin C 500 Mg/15 Ml Liquid), 500 MG PO, ( Reported) Patient History Healthcare decision maker Resuscitation status Full Code Advanced Directive on File Yes Past Medical/Surgical History Past Medical/Surgical History: (1) Stridor (2) HTN (hypertension) (3) SOB (shortness of breath) (4) Diabetes (5) Emphysema of lung Review of Systems All Other Systems: negative except mentioned in HPI Physical Exam Lines, tubes and drains: peripheral HEENT: normocephalic, atraumatic Neck: non-tender, normal alignment Respiratory/Chest: chest wall non-tender Cardiovascular/Chest: normal rate Abdomen: normal bowel sounds, non tender Genitourinary/Rectal: normal genital exam Extremities: normal range of motion Last 24 Hour Vital Signs Date Time Temp Pulse Resp B/P (MAP) Pulse Ox O2 Delivery O2 Flow Rate FiO2 02/27/18 09:32 40 02/27/18 09:32 98 24 99 Mechanical Ventilator 40 02/27/18 09:29 103 122/74 02/27/18 08:51 98 24 40 02/27/18 06:40 85 20 40 02/27/18 04:47 91 19 40 02/27/18 04:00 80 02/27/18 04:00 40 02/27/18 04:00 97.9 85 18 102/75 (84) 100 97.9 85 02/27/18 04:00 Mechanical Ventilator 02/27/18 02:33 97 25 40 02/27/18 02:32 97 21 99 Mechanical Ventilator 40 02/27/18 01:26 102 27 40 02/27/18 00:00 40 02/27/18 00:00 Mechanical Ventilator 02/27/18 00:00 97.5 115 18 127/92 (104) 100 97.5 115 02/27/18 00:00 104 02/26/18 23:38 98.9 02/26/18 23:18 97 26 40 02/26/18 23:08 98.9 02/26/18 22:40 97.6 115 19 120/76 100 Mechanical Ventilator 40 02/26/18 22:30 115 19 120/76 100 Mechanical Ventilator 40 02/26/18 22:30 Mechanical Ventilator 02/26/18 22:30 40 02/26/18 22:30 120 02/26/18 22:30 97.3 120 18 122/97 (105) 100 97.3 120 02/26/18 22:30 Mechanical Ventilator 02/26/18 22:04 40 02/26/18 20:55 103 24 40 02/26/18 18:39 115 27 40 02/26/18 18:30 98.9 101 27 136/98 100 Mechanical Ventilator 40 98.9 02/26/18 18:30 101 27 Mechanical Ventilator 40 02/26/18 18:06 98.7 97 26 110/80 97 Mechanical Ventilator 40 98.8 Intake and Output 02/26/18 02/27/18 19:00 07:00 Output Total 600 ml Balance -600 ml Output Urine Total 600 ml # Voids 1 # Bowel Movements 3 Laboratory Tests Test 02/26/18 18:30 02/26/18 19:10 02/27/18 03:50 White Blood Count 7.5 K/UL (4.8-10.8) 10.0 K/UL (4.8-10.8) Red Blood Count 4.70 M/UL (4.70-6.10) 4.77 M/UL (4.70-6.10) Hemoglobin 14.2 G/DL (14.2-18.0) 13.7 G/DL (14.2-18.0) L Hematocrit 41.3 % (42.0-52.0) L 42.3 % (42.0-52.0) Mean Corpuscular Volume 88 FL (80-99) 89 FL (80-99) Mean Corpuscular Hemoglobin 30.1 PG (27.0-31.0) 28.8 PG (27.0-31.0) Mean Corpuscular Hemoglobin Concent 34.3 G/DL (32.0-36.0) 32.4 G/DL (32.0-36.0) Red Cell Distribution Width 12.0 % (11.6-14.8) 11.9 % (11.6-14.8) Platelet Count 280 K/UL (150-450) 313 K/UL (150-450) Mean Platelet Volume 6.6 FL (6.5-10.1) 6.5 FL (6.5-10.1) Neutrophils (%) (Auto) 48.0 % (45.0-75.0) % (45.0-75.0) Lymphocytes (%) (Auto) 30.5 % (20.0-45.0) % (20.0-45.0) Monocytes (%) (Auto) 7.3 % (1.0-10.0) % (1.0-10.0) Eosinophils (%) (Auto) 11.4 % (0.0-3.0) H % (0.0-3.0) Basophils (%) (Auto) 2.9 % (0.0-2.0) H % (0.0-2.0) Sodium Level 139 MMOL/L (136-145) 142 MMOL/L (136-145) Potassium Level 4.5 MMOL/L (3.5-5.1) 4.8 MMOL/L (3.5-5.1) Chloride Level 104 MMOL/L (98-107) 104 MMOL/L (98-107) Carbon Dioxide Level 28 MMOL/L (21-32) 33 MMOL/L (21-32) H Anion Gap 7 mmol/L (5-15) 5 mmol/L (5-15) Blood Urea Nitrogen 15 mg/dL (7-18) 18 mg/dL (7-18) Creatinine 1.1 MG/DL (0.55-1.30) 1.3 MG/DL (0.55-1.30) Estimat Glomerular Filtration Rate > 60 mL/min (>60) > 60 mL/min (>60) Glucose Level 107 MG/DL (74-106) H 126 MG/DL (74-106) H Lactic Acid Level 1.20 mmol/L (0.4-2.0) Calcium Level 9.0 MG/DL (8.5-10.1) 9.5 MG/DL (8.5-10.1) Total Bilirubin 0.3 MG/DL (0.2-1.0) Aspartate Amino Transf (AST/SGOT) 24 U/L (15-37) Alanine Aminotransferase (ALT/SGPT) 27 U/L (12-78) Alkaline Phosphatase 135 U/L (46-116) H Total Creatine Kinase 182 U/L (26-308) Creatine Kinase MB 2.3 NG/ML (0.0-3.6) Creatine Kinase MB Relative Index 1.2 Troponin I 0.000 ng/mL (0.000-0.056) Pro-B-Type Natriuretic Peptide 41 pg/mL (0-125) Total Protein 8.1 G/DL (6.4-8.2) Albumin 3.0 G/DL (3.4-5.0) L 3.2 G/DL (3.4-5.0) L Globulin 5.1 g/dL Albumin/Globulin Ratio 0.6 (1.0-2.7) L Urine Color Pale yellow Urine Appearance Clear Urine pH 5 (4.5-8.0) Urine Specific [place] 1.020 (1.005-1.035) Urine Protein Negative (NEGATIVE) Urine Glucose (UA) Negative (NEGATIVE) Urine Ketones Negative (NEGATIVE) Urine Blood 4+ (NEGATIVE) H Urine Nitrite Negative (NEGATIVE) Urine Bilirubin Negative (NEGATIVE) Urine Urobilinogen Normal MG/DL (0.0-1.0) Urine Leukocyte Esterase Negative (NEGATIVE) Urine RBC 5-10 /HPF (0 - 0) H Urine WBC 0-2 /HPF (0 - 0) Urine Squamous Epithelial Cells None /LPF (NONE/OCC) Urine Bacteria Occasional /HPF (NONE) Differential Total Cells Counted 100 Neutrophils % (Manual) 96 % (45-75) H Lymphocytes % (Manual) 3 % (20-45) L Monocytes % (Manual) 1 % (1-10) Eosinophils % (Manual) 0 % (0-3) Basophils % (Manual) 0 % (0-2) Band Neutrophils 0 % (0-8) Platelet Estimate Adequate Platelet Morphology Normal Red Blood Cell Morphology Normal Phosphorus Level 2.8 MG/DL (2.5-4.9) Height (Feet): 5 Height (Inches): 4.00 Weight (Pounds): 150 Medications Current Medications Medications (Trade) Dose Ordered Sig/Shraddha Route PRN Reason Start Time Stop Time Status Last Admin Dose Admin Acetaminophen (Tylenol) 650 mg Q4H PRN ORAL FEVER 02/26/18 20:45 03/28/18 20:44 Albuterol/ Ipratropium (Albuterol/ Ipratropium) 3 ml Q4H PRN HHN Shortness of Breath 02/26/18 20:45 03/03/18 20:44 02/27/18 09:35 Amlodipine Besylate (Norvasc) 5 mg DAILY ORAL 02/27/18 09:00 03/29/18 08:59 02/27/18 09:29 Dextrose (Dextrose 50%) 25 ml STAT PRN IV Hypoglycemia 02/26/18 20:45 03/28/18 20:44 Dextrose (Dextrose 50%) 50 ml STAT PRN IV Hypoglycemia 02/26/18 21:45 03/28/18 21:44 Heparin Sodium (Porcine) (Heparin 5000 units/ml) 5,000 units EVERY 12 HOURS SUBQ 02/26/18 21:00 03/28/18 20:59 02/27/18 09:31 Iopamidol (Isovue-300 100ml) 100 ml NOW PRN INJ Radiology Procedure 02/26/18 18:30 02/28/18 18:27 Lorazepam (Ativan 2mg/ml 1ml) 2 mg Q2H PRN IV For Anxiety 02/26/18 21:30 03/05/18 21:29 Morphine Sulfate (Morphine Sulfate) 4 mg Q4H PRN IVP Severe Pain (Pain Scale 7-10) 02/26/18 21:30 03/05/18 21:29 02/26/18 23:08 Ondansetron HCl (Zofran) 4 mg Q6H PRN IVP Nausea & Vomiting 02/26/18 21:30 03/28/18 21:29 Pantoprazole (Protonix) 40 mg DAILY IV 02/27/18 09:00 03/29/18 08:59 02/27/18 09:28 Polyethylene Glycol (Miralax) 17 gm DAILYPRN PRN ORAL Constipation 02/26/18 21:30 03/28/18 21:29 Promethazine HCl (Phenergan Plain) 6.25 mg Q6H PRN ORAL For Cough 02/26/18 21:30 03/28/18 21:29 02/26/18 23:46 Vancomycin HCl (Vanco rx to dose) 1 ea DAILY PRN MISC per rx protocol 02/26/18 21:45 03/28/18 21:44 Vancomycin/Sodium Chloride 250 ml @ 166.667 mls/hr Q12H IVPB 02/27/18 10:30 03/04/18 10:29 02/27/18 10:14 Assessment/Plan Problem List: (1) Acute and chronic respiratory failure ICD Codes: J96.20 - Acute and chronic respiratory failure, unspecified whether with hypoxia or hypercapnia SNOMED: 76930479, 77609621 (2) Emphysema of lung ICD Codes: J43.9 - Emphysema, unspecified SNOMED: 86862774 (3) Stridor ICD Codes: R06.1 - Stridor SNOMED: 85851167 (4) Nosocomial pneumonia ICD Codes: J18.9 - Pneumonia, unspecified organism SNOMED: 277936057 Assessment/Plan check sputum IV abx respiratory treatment titrate vent setting change trach dvt prophylaxis check electrolytes check CEA Demetrius Andrade MD Feb 27, 2018 10:57
[2018-02-27 12:00] VITALS: BP 121/68
[2018-02-27] MEDS: Morphine Sulfate 4mg/ml Inj (IV USE ONLY) IVP PRN (13:58)
[2018-02-27 16:00] VITALS: BP 99/72
--- NOTE | 2018-02-27 18:35 | Consultation ---
History of Present Illness General Date patient seen: Feb 27, 2018 Chief Complaint: Dyspnea/Respdistress Present Illness HPI 67 y/o M with hx of emphysema/COPD, trach/vent depensant, Dm2, HTN, asthma, interstitial PNA, MDR Acinetobacter and PsA PNA, MDR Acinetobacter UTI, pHTN, RLE DVT, pulmonary nodules, Colon mass s/p hemicolectomy SNF resident presents to ED on 02/26 with 1 week of SOB. In ED noted to have stridor and respiratory distress; CT chest showed b/l PNA. No chest pain, f/c, difficulty swallowing. Of note, patient admitted here on 12/30-01/06 with SOB, sepsis 2ry to MRSA PNA. Also admitted on July 2017 with sepsis and VAP Allergies: Coded Allergies: No Known Allergies (Unverified , 06/17/16) Medication History Scheduled Amlodipine Besylate (Norvasc), 5 MG ORAL DAILY, (Reported) Ceftazidime Pentahydrate (Ceftazidime), 1 GM IJ EVERY 8 HOURS Cran/Vitc/Mannose/Inulin/Brom (Uti-Stat Liquid), 3,875 MG PO DAILY, (Reported) Docusate Sodium* (Colace*), 100 MG ORAL DAILY, (Reported) Folic Acid* (Folic Acid*), 1 MG ORAL DAILY, (Reported) Levofloxacin (Levofloxacin*), 500 MG ORAL DAILY Multivitamin Liquid* (Multi-Delyn*), 15 ML ORAL DAILY, (Reported) Pantoprazole* (Protonix*), 40 MG ORAL DAILY, (Reported) Rpcxvtejhurp-Yuwk-Ctejgbim,Iso (Zosyn 3.375 Gm Pre Mix-Bag), 3.375 GM IVPB EVERY 8 HOURS Ranitidine Hcl* (Zantac*), 150 MG ORAL DAILY, (Reported) Vit C/Ascorbate Ca/Ascorb Sod (Vitamin C 500 Mg/15 Ml Liquid), 500 MG GT DAILY, (Reported) Zinc Sulfate (Zinc Sulfate*), 220 MG ORAL DAILY, (Reported) Scheduled PRN Acetaminophen 160MG/5ML* (Acetaminophen*), 20 ML ORAL Q4HR PRN for Fever/ Headache/Mild Pain, (Reported) Albuterol Sulfate* (Albuterol Sulfate Hhn*), 3 ML INH Q6HR PRN for Shortness of breath, (Reported) Bisacodyl (Dulcolax), 10 MG RC for Constipation, (Reported) Diphenhydramine Hcl* (Benadryl*), 25 MG ORAL Q8HR PRN for Itching, (Reported) Diphenoxylate Hcl/Atropine (Diphenoxylate-Atropine Tablet), 1 EACH PO Q4HR PRN for Diarrhea, (Reported) Guaifenesin* (Guaifenesin), 5 ML ORAL Q6H PRN for For Cough, (Reported) Hydrocodone Bit/Acetaminophen 5-325* ([place] 5-325*), 1 TAB ORAL Q6H PRN for For Pain, (Reported) Hydrocodone Bit/Acetaminophen 5-325* ([place] 5-325*), 1 TAB ORAL Q6H PRN for For Pain, (Reported) Magnesium Hydroxide* (Milk Of Magnesia*), 30 ML ORAL QHS PRN for Constipation, ( Reported) Na Phos,M-B/Na Phos,Di-Ba* (Fleet Enema*), 118 ML RECTAL for Constipation, ( Reported) Ondansetron* (Zofran*), 4 MG ORAL Q6H PRN for Nausea & Vomiting, (Reported) Polyethylene Glycol 3350* (Miralax*), 17 GM ORAL DAILY PRN for Constipation, ( Reported) Promethazine HCl (Promethazine HCl), 5 ML ORAL Q6H PRN for For Cough, (Reported) Vancomycin Hcl (Vancomycin Hcl), 1 GM IVPB EVERY 12 HOURS PRN Miscellaneous Medications Vit C/Ascorbate Ca/Ascorb Sod (Vitamin C 500 Mg/15 Ml Liquid), 500 MG PO, ( Reported) Patient History Healthcare decision maker Resuscitation status Full Code Advanced Directive on File Yes Patient History Narrative Pmhx: as above Shx: Denies: smoking, alcohol use, drug use Fhx: non contributory Review of Systems ROS Narrative unable to obtain Physical Exam Physical Exam Narrative Lines, tubes and drains: peripheral HEENT: normocephalic, atraumatic Neck: non-tender, normal alignment Respiratory/Chest: chest wall non-tender Cardiovascular/Chest: normal rate Abdomen: normal bowel sounds, non tender Genitourinary/Rectal: normal genital exam Extremities: normal range of motion Last 24 Hour Vital Signs Date Time Temp Pulse Resp B/P (MAP) Pulse Ox O2 Delivery O2 Flow Rate FiO2 02/27/18 16:48 98 23 40 02/27/18 14:30 104 22 40 02/27/18 12:51 95 20 98 Mechanical Ventilator 40 02/27/18 12:51 40 02/27/18 12:51 97 26 40 02/27/18 10:47 101 18 40 02/27/18 09:32 40 02/27/18 09:32 98 24 99 Mechanical Ventilator 40 02/27/18 09:29 103 122/74 02/27/18 08:51 98 24 40 02/27/18 08:00 97.2 103 20 122/74 (90) 100 97.2 103 02/27/18 08:00 104 02/27/18 08:00 Mechanical Ventilator 02/27/18 08:00 40 02/27/18 06:40 85 20 40 02/27/18 04:47 91 19 40 02/27/18 04:00 80 02/27/18 04:00 40 02/27/18 04:00 97.9 85 18 102/75 (84) 100 97.9 85 02/27/18 04:00 Mechanical Ventilator 02/27/18 02:33 97 25 40 02/27/18 02:32 97 21 99 Mechanical Ventilator 40 02/27/18 01:26 102 27 40 02/27/18 00:00 40 02/27/18 00:00 Mechanical Ventilator 02/27/18 00:00 97.5 115 18 127/92 (104) 100 97.5 115 02/27/18 00:00 104 02/26/18 23:38 98.9 02/26/18 23:18 97 26 40 02/26/18 23:08 98.9 02/26/18 22:40 97.6 115 19 120/76 100 Mechanical Ventilator 40 02/26/18 22:30 115 19 120/76 100 Mechanical Ventilator 40 02/26/18 22:30 Mechanical Ventilator 02/26/18 22:30 40 18 22:30 120 02/26/18 22:30 97.3 120 18 122/97 (105) 100 97.3 120 02/26/18 22:30 Mechanical Ventilator 02/26/18 22:04 40 02/26/18 20:55 103 24 40 02/26/18 18:39 115 27 40 8/23/18 18:30 98.9 101 27 136/98 100 Mechanical Ventilator 40 98.9 02/26/18 18:30 101 27 Mechanical Ventilator 40 Intake and Output 02/26/18 02/27/18 19:00 07:00 Output Total 600 ml Balance -600 ml Output Urine Total 600 ml # Voids 1 # Bowel Movements 3 Laboratory Tests Test 02/26/18 18:30 02/26/18 19:10 02/27/18 03:50 White Blood Count 7.5 K/UL (4.8-10.8) 10.0 K/UL (4.8-10.8) Red Blood Count 4.70 M/UL (4.70-6.10) 4.77 M/UL (4.70-6.10) Hemoglobin 14.2 G/DL (14.2-18.0) 13.7 G/DL (14.2-18.0) L Hematocrit 41.3 % (42.0-52.0) L 42.3 % (42.0-52.0) Mean Corpuscular Volume 88 FL (80-99) 89 FL (80-99) Mean Corpuscular Hemoglobin 30.1 PG (27.0-31.0) 28.8 PG (27.0-31.0) Mean Corpuscular Hemoglobin Concent 34.3 G/DL (32.0-36.0) 32.4 G/DL (32.0-36.0) Red Cell Distribution Width 12.0 % (11.6-14.8) 11.9 % (11.6-14.8) Platelet Count 280 K/UL (150-450) 313 K/UL (150-450) Mean Platelet Volume 6.6 FL (6.5-10.1) 6.5 FL (6.5-10.1) Neutrophils (%) (Auto) 48.0 % (45.0-75.0) % (45.0-75.0) Lymphocytes (%) (Auto) 30.5 % (20.0-45.0) % (20.0-45.0) Monocytes (%) (Auto) 7.3 % (1.0-10.0) % (1.0-10.0) Eosinophils (%) (Auto) 11.4 % (0.0-3.0) H % (0.0-3.0) Basophils (%) (Auto) 2.9 % (0.0-2.0) H % (0.0-2.0) Sodium Level 139 MMOL/L (136-145) 142 MMOL/L (136-145) Potassium Level 4.5 MMOL/L (3.5-5.1) 4.8 MMOL/L (3.5-5.1) Chloride Level 104 MMOL/L (98-107) 104 MMOL/L (98-107) Carbon Dioxide Level 28 MMOL/L (21-32) 33 MMOL/L (21-32) H Anion Gap 7 mmol/L (5-15) 5 mmol/L (5-15) Blood Urea Nitrogen 15 mg/dL (7-18) 18 mg/dL (7-18) Creatinine 1.1 MG/DL (0.55-1.30) 1.3 MG/DL (0.55-1.30) Estimat Glomerular Filtration Rate > 60 mL/min (>60) > 60 mL/min (>60) Glucose Level 107 MG/DL (74-106) H 126 MG/DL (74-106) H Lactic Acid Level 1.20 mmol/L (0.4-2.0) Calcium Level 9.0 MG/DL (8.5-10.1) 9.5 MG/DL (8.5-10.1) Total Bilirubin 0.3 MG/DL (0.2-1.0) Aspartate Amino Transf (AST/SGOT) 24 U/L (15-37) Alanine Aminotransferase (ALT/SGPT) 27 U/L (12-78) Alkaline Phosphatase 135 U/L (46-116) H Total Creatine Kinase 182 U/L (26-308) Creatine Kinase MB 2.3 NG/ML (0.0-3.6) Creatine Kinase MB Relative Index 1.2 Troponin I 0.000 ng/mL (0.000-0.056) Pro-B-Type Natriuretic Peptide 41 pg/mL (0-125) Total Protein 8.1 G/DL (6.4-8.2) Albumin 3.0 G/DL (3.4-5.0) L 3.2 G/DL (3.4-5.0) L Globulin 5.1 g/dL Albumin/Globulin Ratio 0.6 (1.0-2.7) L Urine Color Pale yellow Urine Appearance Clear Urine pH 5 (4.5-8.0) Urine Specific [place] 1.020 (1.005-1.035) Urine Protein Negative (NEGATIVE) Urine Glucose (UA) Negative (NEGATIVE) Urine Ketones Negative (NEGATIVE) Urine Blood 4+ (NEGATIVE) H Urine Nitrite Negative (NEGATIVE) Urine Bilirubin Negative (NEGATIVE) Urine Urobilinogen Normal MG/DL (0.0-1.0) Urine Leukocyte Esterase Negative (NEGATIVE) Urine RBC 5-10 /HPF (0 - 0) H Urine WBC 0-2 /HPF (0 - 0) Urine Squamous Epithelial Cells None /LPF (NONE/OCC) Urine Bacteria Occasional /HPF (NONE) Differential Total Cells Counted 100 Neutrophils % (Manual) 96 % (45-75) H Lymphocytes % (Manual) 3 % (20-45) L Monocytes % (Manual) 1 % (1-10) Eosinophils % (Manual) 0 % (0-3) Basophils % (Manual) 0 % (0-2) Band Neutrophils 0 % (0-8) Platelet Estimate Adequate Platelet Morphology Normal Red Blood Cell Morphology Normal Phosphorus Level 2.8 MG/DL (2.5-4.9) Carcinoembryonic Antigen Pending Height (Feet): 5 Height (Inches): 4.00 Weight (Pounds): 150 Medications Current Medications Medications (Trade) Dose Ordered Sig/Shraddha Route PRN Reason Start Time Stop Time Status Last Admin Dose Admin Acetaminophen (Tylenol) 650 mg Q4H PRN ORAL FEVER 02/26/18 20:45 03/28/18 20:44 Albuterol/ Ipratropium (Albuterol/ Ipratropium) 3 ml Q4H PRN HHN Shortness of Breath 02/26/18 20:45 03/03/18 20:44 02/27/18 16:48 Amlodipine Besylate (Norvasc) 5 mg DAILY ORAL 02/27/18 09:00 03/29/18 08:59 02/27/18 09:29 Dextrose (Dextrose 50%) 25 ml STAT PRN IV Hypoglycemia 02/26/18 20:45 03/28/18 20:44 Dextrose (Dextrose 50%) 50 ml STAT PRN IV Hypoglycemia 02/26/18 21:45 03/28/18 21:44 Heparin Sodium (Porcine) (Heparin 5000 units/ml) 5,000 units EVERY 12 HOURS SUBQ 02/26/18 21:00 03/28/18 20:59 02/27/18 09:31 Iopamidol (Isovue-300 100ml) 100 ml NOW PRN INJ Radiology Procedure 02/26/18 18:30 02/28/18 18:27 Lorazepam (Ativan 2mg/ml 1ml) 2 mg Q2H PRN IV For Anxiety 02/26/18 21:30 03/05/18 21:29 Morphine Sulfate (Morphine Sulfate) 4 mg Q4H PRN IVP Severe Pain (Pain Scale 7-10) 02/26/18 21:30 03/05/18 21:29 02/27/18 13:58 Ondansetron HCl (Zofran) 4 mg Q6H PRN IVP Nausea & Vomiting 02/26/18 21:30 03/28/18 21:29 Pantoprazole (Protonix) 40 mg DAILY IV 02/27/18 09:00 03/29/18 08:59 02/27/18 09:28 Polyethylene Glycol (Miralax) 17 gm DAILYPRN PRN ORAL Constipation 02/26/18 21:30 03/28/18 21:29 Promethazine HCl (Phenergan Plain) 6.25 mg Q6H PRN ORAL For Cough 02/26/18 21:30 03/28/18 21:29 02/26/18 23:46 Vancomycin HCl (Vanco rx to dose) 1 ea DAILY PRN MISC per rx protocol 02/26/18 21:45 03/28/18 21:44 Vancomycin/Sodium Chloride 250 ml @ 166.667 mls/hr Q12H IVPB 02/27/18 10:30 03/04/18 10:29 02/27/18 10:14 Assessment/Plan Assessment/Plan Abx: IV Vanco 02/26- Zosyn x1 02/26 Azitromycin x1 02/26 Assessment: Probable PNA -CT chest: Consolidation and volume loss within the posterior superior segment right upper lobe, consistent with pneumonia. Review of prior imaging studies, however, indicates more extensive disease was present previously, so this probably represents residual from previous acute episodes, although it could represent recurrent acute disease. Cystic space within the apex of the right lower lobe, evident also on 11/14/2017, may reflect residua of a previous lung abscess, versus a bulla. Previously demonstrated left lung disease is largely resolved, with only minimal scarring at the left lung base. Diffuse hyperinflation, consistent with COPD changes Stridor -CT neck: No definite acute process. Appropriate tracheostomy position. No evidence of radiopaque foreign body Afebrile, no leukocytosis Recent HCAP 2ry to MRSA, 12/2017; s/p Rx REcent CONS and ACB bacteremia 12/2017, s/o Rx -12/30 Bcx / CONS, 07/10 ACB (I Ceftriaxone; S levaquin, Ceftazidime, bactrim , Imipenem) -01/01 Bcx Neg Hx of ventilator-associated pneumonia 07/2017, s/p Rx -sp cx #P mirabilis (S Ancef, Ceftriaxone, Zosyn, Ertapenem; R Imipenem, Cipro/Levo) +4 Serratia marcecens (S Ceftriaxone, Ertapenem) DM HTN asthma/COPD interstitial PNA hx MDR Acinetobacter and PsA PNA hx MDR Acinetobacter UTI -ucx -u/a neg; ucx >100k Proteus ( S Zosyn, levaquin, amikacin) 07/2017; colonization Colon mass s/p hemicolectomy chronic resp failure trach/vent dependant pHTN RLE DVT pulmonary nodules [facility] resident Plan: -Continue empiric IV Vanco, Zosyn and azithromycin #2 pending cultuers -01/12 SP IV Vancomycin # 14 ( MRSA PNA), Levaquin #10 -01/11 SP Ceftazidime #7 - Sp Meropenem abx # -12/30 SP Levaquin x1, Zosyn #1 -07/24 SP Zosyn #14 -07/15 SP IV vanco #5 -07/12 SP Tamiflu #2 -07/11/17 Azithromycin x1 -f/u cx -Monitor CBC/CMP, temperatures -sp cx, legionella ag urine -aspiration precautions Thank you for this consultation. Will continue to follow along with you. Discussed with Tianna Powell M.D. Feb 27, 2018 18:35
[2018-02-27 20:00] VITALS: BP 114/71
[2018-02-27] MEDS: Azithromycin 250mg tab ORAL SCH (20:48)
[2018-02-27] MEDS: Piperacillin/Tazobactam 3.375 GM in D5W 110 ML IVPB SCH (22:15)
[2018-02-27] MEDS ORDERED: Vancomycin 1 GM in D5W 275 ML IV SCH (23:00)
[2018-02-28] VITALS: BP 110/70
--- NOTE | 2018-02-28 01:00 | History and Physical Report ---
DATE OF ADMISSION: 02/26/2018 TIME: At 3 p.m. CONSULTANTS: 1. Demetrius Andrade M.D. 2. Anibal Trujillo M.D. CHIEF COMPLAINT: Respiratory failure, pneumonia, and sepsis. BRIEF HISTORY: This is a 67-year-old male from [place] presents to [facility] with the above-mentioned diagnosis, fever, lethargy, shortness of breath, diagnosed with pneumonia and sepsis, admitted to step-down unit for further care. Currently, awake in bed, slight short of breath. No complaint. REVIEW OF SYSTEMS: No chest pain. Slightly short of breath. No nausea, vomiting, or diarrhea. PAST MEDICAL HISTORY: Includes diabetes, hypertension, and COPD. PAST SURGICAL HISTORY: Trach and G-tube. MEDICATIONS: Include vancomycin, Norvasc, Protonix, Phenergan, morphine, MiraLAX, Ativan, Zofran, heparin, azithromycin, Zosyn, and Tylenol. ALLERGIES: Unknown. SOCIAL HISTORY: Unable to obtain. PHYSICAL EXAMINATION: GENERAL: The patient is calm in bed, nonverbal, awake. Trach and vent in place. VITAL SIGNS: Temperature is 97 degrees, pulse 95, respirations 20, and blood pressure 122/74. CARDIOVASCULAR: No murmurs. LUNGS: Poor air exchange. ABDOMEN: Bowel sounds distant. EXTREMITIES: No cyanosis, clubbing, or edema. NEUROLOGIC: The patient moves all extremities. Slightly weak. LABORATORY AND DIAGNOSTIC DATA: CBC is normal. BMP shows CO2 of 33, glucose 126, otherwise BMP is normal. Albumin 3.2. Urinalysis shows 4+ blood, otherwise normal. ASSESSMENT: 1. Respiratory failure. 2. Pneumonia. 3. Sepsis. 4. Diabetes. 5. Hypertension. 6. Chronic obstructive pulmonary disease. PLAN: 1. Vent per Pulmonary. 2. Antibiotics per Infectious Disease. 3. Blood pressure and blood sugar control. 4. Dietary followup. 5. CBC and BMP in the morning. Elan Petersen D.O. DR: DORA JOB#: [id number] CC:
[2018-02-28] MEDS: Albuterol/Ipratropium 3ml neb HHN PRN ×4 (01:15→21:01)
[2018-02-28 04:00] VITALS: BP 97/66
[2018-02-28 04:20] LABS: BASOPHILS % (AUTO) 2.1 % (0.0-2.0); EOSINOPHILS % (AUTO) 3.4 % (0.0-3.0); HEMOGLOBIN 13.3 G/DL (14.2-18.0); LYMPHOCYTES % (AUTO) 25.7 % (20.0-45.0); MEAN CORPUSCULAR VOLUME 87 FL (80-99); MONOCYTES % (AUTO) 10.9 % (1.0-10.0); NEUTROPHILS % (AUTO) 57.9 % (45.0-75.0); PLATELET COUNT 297 K/UL (150-450); RED BLOOD COUNT 4.73 M/UL (4.70-6.10); RED CELL DISTRIBUTION WIDTH 11.6 % (11.6-14.8)
[2018-02-28 04:35] LABS: ANION GAP 6 mmol/L (5-15); BLOOD UREA NITROGEN 17 mg/dL (7-18); CALCIUM 9.2 MG/DL (8.5-10.1); CARBON DIOXIDE 30 MMOL/L (21-32); CHLORIDE 105 MMOL/L (98-107); CREATININE 1.1 MG/DL (0.55-1.30); POTASSIUM 4.2 MMOL/L (3.5-5.1); SODIUM 141 MMOL/L (136-145)
[2018-02-28] MEDS: Piperacillin/Tazobactam 3.375 GM in D5W 110 ML IVPB SCH ×3 (06:04→22:38)
[2018-02-28 08:00] VITALS: BP 123/72
[2018-02-28] MEDS: Morphine Sulfate 4mg/ml Inj (IV USE ONLY) IVP PRN ×2 (08:47→19:37)
[2018-02-28] MEDS: Pantoprazole Inj IV SCH (08:47)
[2018-02-28] MEDS: Heparin 5000 units/ml inj SUBQ SCH ×2 (08:53→21:23)
--- NOTE | 2018-02-28 10:35 | Pulmonolgy Critical Care Note ---
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 - Objective Last 24 Hour Vital Signs Date Time Temp Pulse Resp B/P (MAP) Pulse Ox O2 Delivery O2 Flow Rate FiO2 02/28/18 09:11 40 02/28/18 09:11 89 21 99 Mechanical Ventilator 40 02/28/18 09:03 88 21 99 Mechanical Ventilator 40 02/28/18 08:59 97 21 40 02/28/18 08:48 102 135/94 02/28/18 08:00 97.5 111 20 123/72 (89) 100 97.5 02/28/18 08:00 40 02/28/18 06:30 92 21 40 02/28/18 05:30 88 18 40 02/28/18 04:00 74 02/28/18 04:00 97.7 68 18 97/66 (76) 100 97.7 68 02/28/18 04:00 Mechanical Ventilator 02/28/18 04:00 40 02/28/18 03:02 85 18 40 02/28/18 01:24 118 24 99 Mechanical Ventilator 40 02/28/18 01:14 110 24 98 Mechanical Ventilator 40 02/28/18 01:14 40 02/28/18 01:13 110 24 40 02/28/18 00:00 97.4 77 20 110/70 (83) 100 97.4 77 02/28/18 00:00 40 02/28/18 00:00 68 02/28/18 00:00 Mechanical Ventilator 02/27/18 23:06 85 19 40 02/27/18 21:10 89 23 40 02/27/18 20:00 97.3 90 20 114/71 (85) 100 97.3 90 02/27/18 20:00 79 02/27/18 20:00 Mechanical Ventilator 02/27/18 20:00 40 02/27/18 19:00 87 22 40 02/27/18 16:48 98 23 40 02/27/18 16:00 Mechanical Ventilator 02/27/18 16:00 40 02/27/18 16:00 97.3 82 18 99/72 (81) 100 97.3 82 02/27/18 16:00 87 02/27/18 14:30 104 22 40 02/27/18 12:51 95 20 98 Mechanical Ventilator 40 02/27/18 12:51 40 02/27/18 12:51 97 26 40 02/27/18 12:00 40 02/27/18 12:00 Mechanical Ventilator 02/27/18 12:00 99 02/27/18 12:00 97.2 74 28 121/68 (85) 100 97.2 74 02/27/18 10:47 101 18 40 Status: awake Condition: critical, improving HEENT: atraumatic Lungs: clear Heart: HR/BP stable Abdomen: soft, active bowel sounds Extremities: no C/C/E, edema Decubiti: stage Micro: Microbiology Date/Time Source Procedure Growth Status 02/26/18 18:30 Blood Blood Culture - Preliminary NO GROWTH AFTER 24 HOURS Resulted 02/26/18 18:30 Blood Blood Culture - Preliminary NO GROWTH AFTER 24 HOURS Resulted Critical Care - Subjective ROS Limited/Unobtainable: No Condition: critical EKG Rhythm: Sinus Rhythm FI02: 40 Vent Support Breath Rate: 18 Vent Support Mode: AC Vent Tidal Volume: 600 Sputum Amount: Moderate PEEP: 5.0 PIP: 26 I&O: Intake and Output 02/27/18 02/28/18 19:00 07:00 Intake Total 350 ml 687.5 ml Output Total 600 ml 700 ml Balance -250 ml -12.5 ml Intake Oral 350 ml 300 ml IV Total 387.5 ml Output Urine Total 600 ml 700 ml # Voids 3 CXR: no change Labs: Laboratory Tests Test 02/28/18 02:00 02/28/18 04:05 02/28/18 09:15 Urine Legionella Antigen Pending White Blood Count 7.0 K/UL (4.8-10.8) Red Blood Count 4.73 M/UL (4.70-6.10) Hemoglobin 13.3 G/DL (14.2-18.0) L Hematocrit 41.0 % (42.0-52.0) L Mean Corpuscular Volume 87 FL (80-99) Mean Corpuscular Hemoglobin 28.2 PG (27.0-31.0) Mean Corpuscular Hemoglobin Concent 32.5 G/DL (32.0-36.0) Red Cell Distribution Width 11.6 % (11.6-14.8) Platelet Count 297 K/UL (150-450) Mean Platelet Volume 6.3 FL (6.5-10.1) L Neutrophils (%) (Auto) 57.9 % (45.0-75.0) Lymphocytes (%) (Auto) 25.7 % (20.0-45.0) Monocytes (%) (Auto) 10.9 % (1.0-10.0) H Eosinophils (%) (Auto) 3.4 % (0.0-3.0) H Basophils (%) (Auto) 2.1 % (0.0-2.0) H Sodium Level 141 MMOL/L (136-145) Potassium Level 4.2 MMOL/L (3.5-5.1) Chloride Level 105 MMOL/L (98-107) Carbon Dioxide Level 30 MMOL/L (21-32) Anion Gap 6 mmol/L (5-15) Blood Urea Nitrogen 17 mg/dL (7-18) Creatinine 1.1 MG/DL (0.55-1.30) Estimat Glomerular Filtration Rate > 60 mL/min (>60) Glucose Level 108 MG/DL (74-106) H Calcium Level 9.2 MG/DL (8.5-10.1) Vancomycin Level Trough 13.0 ug/mL (5.0-12.0) H Demetrius Andrade MD Feb 28, 2018 10:35
--- NOTE | 2018-02-28 10:43 | Infectious Diseases Prog Note ---
Assessment/Plan Assessment/Plan Assessment: Probable PNA -CT chest: Consolidation and volume loss within the posterior superior segment right upper lobe, consistent with pneumonia. Review of prior imaging studies, however, indicates more extensive disease was present previously, so this probably represents residual from previous acute episodes, although it could represent recurrent acute disease. Cystic space within the apex of the right lower lobe, evident also on 11/14/2017, may reflect residua of a previous lung abscess, versus a bulla. Previously demonstrated left lung disease is largely resolved, with only minimal scarring at the left lung base. Diffuse hyperinflation, consistent with COPD changes Afebrile, no leukocytosis Recent HCAP 2ry to MRSA, 12/2017; s/p Rx REcent CONS and ACB bacteremia 12/2017, s/o Rx -12/30 Bcx / CONS, 07/10 ACB (I Ceftriaxone; S levaquin, Ceftazidime, bactrim , Imipenem) -01/01 Bcx Neg Hx of ventilator-associated pneumonia 07/2017, s/p Rx -sp cx #P mirabilis (S Ancef, Ceftriaxone, Zosyn, Ertapenem; R Imipenem, Cipro/Levo) +4 Serratia marcecens (S Ceftriaxone, Ertapenem) Stridor ( Sp change of trach ) -CT neck: No definite acute process. Appropriate tracheostomy position. No evidence of radiopaque foreign body DM HTN asthma/COPD interstitial PNA Colon mass s/p hemicolectomy chronic resp failure trach/vent dependant pHTN RLE DVT pulmonary nodules SNF resident Plan: -Continue empiric IV Vanco, Zosyn d# 3/ 7 and azithromycin # 3/ 5 ( pending cultuers) -01/12 SP IV Vancomycin # 14 ( MRSA PNA), Levaquin #10 -01/11 SP Ceftazidime #7 - Sp Meropenem abx #4 -12/30 SP Levaquin x1, Zosyn #1 -f/u Blcx -Monitor CBC/CMP, temperatures -sp cx, legionella ag urine -aspiration precautions -Monitor CBC/BMP, temperatures -trach care -wound care/prevention per hospital protocol Subjective Allergies: Coded Allergies: No Known Allergies (Unverified , 06/17/16) Subjective Afebrile Objective Vital Signs Last 24 Hour Vital Signs Date Time Temp Pulse Resp B/P (MAP) Pulse Ox O2 Delivery O2 Flow Rate FiO2 02/28/18 09:11 40 02/28/18 09:11 89 21 99 Mechanical Ventilator 40 02/28/18 09:03 88 21 99 Mechanical Ventilator 40 02/28/18 08:59 97 21 40 02/28/18 08:48 102 135/94 02/28/18 08:00 97.5 111 20 123/72 (89) 100 97.5 02/28/18 08:00 40 02/28/18 06:30 92 21 40 02/28/18 05:30 88 18 40 02/28/18 04:00 74 02/28/18 04:00 97.7 68 18 97/66 (76) 100 97.7 68 02/28/18 04:00 Mechanical Ventilator 02/28/18 04:00 40 02/28/18 03:02 85 18 40 02/28/18 01:24 118 24 99 Mechanical Ventilator 40 02/28/18 01:14 110 24 98 Mechanical Ventilator 40 02/28/18 01:14 40 02/28/18 01:13 110 24 40 02/28/18 00:00 97.4 77 20 110/70 (83) 100 97.4 77 02/28/18 00:00 40 02/28/18 00:00 68 02/28/18 00:00 Mechanical Ventilator 02/27/18 23:06 85 19 40 02/27/18 21:10 89 23 40 02/27/18 20:00 97.3 90 20 114/71 (85) 100 97.3 90 02/27/18 20:00 79 02/27/18 20:00 Mechanical Ventilator 02/27/18 20:00 40 02/27/18 19:00 87 22 40 02/27/18 16:48 98 23 40 02/27/18 16:00 Mechanical Ventilator 02/27/18 16:00 40 02/27/18 16:00 97.3 82 18 99/72 (81) 100 97.3 82 02/27/18 16:00 87 02/27/18 14:30 104 22 40 02/27/18 12:51 95 20 98 Mechanical Ventilator 40 02/27/18 12:51 40 02/27/18 12:51 97 26 40 02/27/18 12:00 40 02/27/18 12:00 Mechanical Ventilator 02/27/18 12:00 99 02/27/18 12:00 97.2 74 28 121/68 (85) 100 97.2 74 02/27/18 10:47 101 18 40 Height (Feet): 5 Height (Inches): 4.00 Weight (Pounds): 179 Respiratory/Chest: lungs clear Cardiovascular: regularly irregular Abdomen: non distended Microbiology Date/Time Source Procedure Growth Status 02/26/18 18:30 Blood Blood Culture - Preliminary NO GROWTH AFTER 24 HOURS Resulted 02/26/18 18:30 Blood Blood Culture - Preliminary NO GROWTH AFTER 24 HOURS Resulted Laboratory Tests Test 02/28/18 02:00 02/28/18 04:05 02/28/18 09:15 Urine Legionella Antigen Pending White Blood Count 7.0 K/UL (4.8-10.8) Red Blood Count 4.73 M/UL (4.70-6.10) Hemoglobin 13.3 G/DL (14.2-18.0) L Hematocrit 41.0 % (42.0-52.0) L Mean Corpuscular Volume 87 FL (80-99) Mean Corpuscular Hemoglobin 28.2 PG (27.0-31.0) Mean Corpuscular Hemoglobin Concent 32.5 G/DL (32.0-36.0) Red Cell Distribution Width 11.6 % (11.6-14.8) Platelet Count 297 K/UL (150-450) Mean Platelet Volume 6.3 FL (6.5-10.1) L Neutrophils (%) (Auto) 57.9 % (45.0-75.0) Lymphocytes (%) (Auto) 25.7 % (20.0-45.0) Monocytes (%) (Auto) 10.9 % (1.0-10.0) H Eosinophils (%) (Auto) 3.4 % (0.0-3.0) H Basophils (%) (Auto) 2.1 % (0.0-2.0) H Sodium Level 141 MMOL/L (136-145) Potassium Level 4.2 MMOL/L (3.5-5.1) Chloride Level 105 MMOL/L (98-107) Carbon Dioxide Level 30 MMOL/L (21-32) Anion Gap 6 mmol/L (5-15) Blood Urea Nitrogen 17 mg/dL (7-18) Creatinine 1.1 MG/DL (0.55-1.30) Estimat Glomerular Filtration Rate > 60 mL/min (>60) Glucose Level 108 MG/DL (74-106) H Calcium Level 9.2 MG/DL (8.5-10.1) Vancomycin Level Trough 13.0 ug/mL (5.0-12.0) H Current Medications Medications (Trade) Dose Ordered Sig/Shraddha Route PRN Reason Start Time Stop Time Status Last Admin Dose Admin Acetaminophen (Tylenol) 650 mg Q4H PRN ORAL FEVER 02/26/18 20:45 03/28/18 20:44 Albuterol/ Ipratropium (Albuterol/ Ipratropium) 3 ml Q4H PRN HHN Shortness of Breath 02/26/18 20:45 03/03/18 20:44 02/28/18 09:03 Amlodipine Besylate (Norvasc) 5 mg DAILY ORAL 02/27/18 09:00 03/29/18 08:59 02/28/18 08:48 Azithromycin (Zithromax) 500 mg Q24H ORAL 02/27/18 20:00 03/06/18 19:59 02/27/18 20:48 Dextrose (Dextrose 50%) 25 ml STAT PRN IV Hypoglycemia 02/26/18 20:45 03/28/18 20:44 Dextrose (Dextrose 50%) 50 ml STAT PRN IV Hypoglycemia 02/26/18 21:45 03/28/18 21:44 Heparin Sodium (Porcine) (Heparin 5000 units/ml) 5,000 units EVERY 12 HOURS SUBQ 02/26/18 21:00 03/28/18 20:59 02/28/18 08:53 Iopamidol (Isovue-300 100ml) 100 ml NOW PRN INJ Radiology Procedure 02/26/18 18:30 02/28/18 18:27 Lorazepam (Ativan 2mg/ml 1ml) 2 mg Q2H PRN IV For Anxiety 02/26/18 21:30 03/05/18 21:29 Morphine Sulfate (Morphine Sulfate) 4 mg Q4H PRN IVP Severe Pain (Pain Scale 7-10) 02/26/18 21:30 03/05/18 21:29 02/28/18 08:47 Ondansetron HCl (Zofran) 4 mg Q6H PRN IVP Nausea & Vomiting 02/26/18 21:30 03/28/18 21:29 Pantoprazole (Protonix) 40 mg DAILY IV 02/27/18 09:00 03/29/18 08:59 02/28/18 08:47 Piperacillin Sod/ Tazobactam Sod 3.375 gm/Dextrose 110 ml @ 27.5 mls/hr EVERY 8 HOURS IVPB 02/27/18 22:00 03/04/18 21:59 02/28/18 06:04 Polyethylene Glycol (Miralax) 17 gm DAILYPRN PRN ORAL Constipation 02/26/18 21:30 03/28/18 21:29 Promethazine HCl (Phenergan Plain) 6.25 mg Q6H PRN ORAL For Cough 02/26/18 21:30 03/28/18 21:29 02/26/18 23:46 Vancomycin HCl (Vanco rx to dose) 1 ea DAILY PRN MISC per rx protocol 02/26/18 21:45 03/28/18 21:44 Vancomycin/Sodium Chloride 250 ml @ 166.667 mls/hr Q12H IVPB 02/27/18 10:30 03/04/18 10:29 02/27/18 22:15 Anibal Trujillo MD Feb 28, 2018 10:43
[2018-02-28] MEDS: Vancomycin 750mg/NS 250ml IVPB SCH (11:03)
--- NOTE | 2018-02-28 11:04 | General Progress Note ---
Assessment/Plan Problem List: (1) Chronic respiratory failure ICD Codes: J96.10 - Chronic respiratory failure, unspecified whether with hypoxia or hypercapnia SNOMED: 39249557 (2) Pneumonia ICD Codes: J18.9 - Pneumonia, unspecified organism SNOMED: 518407926 (3) Sepsis ICD Codes: A41.9 - Sepsis, unspecified organism SNOMED: 58831820 (4) Diabetes ICD Codes: E11.9 - Type 2 diabetes mellitus without complications SNOMED: 77784967 (5) HTN (hypertension) ICD Codes: I10 - Essential (primary) hypertension SNOMED: 62423143 (6) COPD (chronic obstructive pulmonary disease) ICD Codes: J44.9 - Chronic obstructive pulmonary disease, unspecified SNOMED: 94567102 Status: stable, progressing Assessment/Plan vent abx bp bs control cbc bmp am Subjective Constitutional: Reports: weakness Allergies: Coded Allergies: No Known Allergies (Unverified , 06/17/16) All Systems: reviewed and negative except above Subjective trach vent awake Objective Last 24 Hour Vital Signs Date Time Temp Pulse Resp B/P (MAP) Pulse Ox O2 Delivery O2 Flow Rate FiO2 02/28/18 09:11 40 02/28/18 09:11 89 21 99 Mechanical Ventilator 40 02/28/18 09:03 88 21 99 Mechanical Ventilator 40 02/28/18 08:59 97 21 40 02/28/18 08:48 102 135/94 02/28/18 08:00 97.5 111 20 123/72 (89) 100 97.5 02/28/18 08:00 40 02/28/18 06:30 92 21 40 02/28/18 05:30 88 18 40 02/28/18 04:00 74 02/28/18 04:00 97.7 68 18 97/66 (76) 100 97.7 68 02/28/18 04:00 Mechanical Ventilator 02/28/18 04:00 40 02/28/18 03:02 85 18 40 02/28/18 01:24 118 24 99 Mechanical Ventilator 40 02/28/18 01:14 110 24 98 Mechanical Ventilator 40 02/28/18 01:14 40 02/28/18 01:13 110 24 40 02/28/18 00:00 97.4 77 20 110/70 (83) 100 97.4 77 02/28/18 00:00 40 02/28/18 00:00 68 02/28/18 00:00 Mechanical Ventilator 02/27/18 23:06 85 19 40 02/27/18 21:10 89 23 40 02/27/18 20:00 97.3 90 20 114/71 (85) 100 97.3 90 02/27/18 20:00 79 02/27/18 20:00 Mechanical Ventilator 02/27/18 20:00 40 02/27/18 19:00 87 22 40 02/27/18 16:48 98 23 40 02/27/18 16:00 Mechanical Ventilator 02/27/18 16:00 40 02/27/18 16:00 97.3 82 18 99/72 (81) 100 97.3 82 02/27/18 16:00 87 02/27/18 14:30 104 22 40 02/27/18 12:51 95 20 98 Mechanical Ventilator 40 02/27/18 12:51 40 02/27/18 12:51 97 26 40 02/27/18 12:00 40 02/27/18 12:00 Mechanical Ventilator 02/27/18 12:00 99 02/27/18 12:00 97.2 74 28 121/68 (85) 100 97.2 74 Intake and Output 02/27/18 02/28/18 19:00 07:00 Intake Total 350 ml 687.5 ml Output Total 600 ml 700 ml Balance -250 ml -12.5 ml Intake Oral 350 ml 300 ml IV Total 387.5 ml Output Urine Total 600 ml 700 ml # Voids 3 Laboratory Tests 02/28/18 02:00: Urine Legionella Antigen [Pending] 02/28/18 04:05: White Blood Count 7.0, Red Blood Count 4.73, Hemoglobin 13.3L, Hematocrit 41.0L , Mean Corpuscular Volume 87, Mean Corpuscular Hemoglobin 28.2, Mean Corpuscular Hemoglobin Concent 32.5, Red Cell Distribution Width 11.6, Platelet Count 297, Mean Platelet Volume 6.3L, Neutrophils (%) (Auto) 57.9, Lymphocytes ( %) (Auto) 25.7, Monocytes (%) (Auto) 10.9H, Eosinophils (%) (Auto) 3.4H, Basophils (%) (Auto) 2.1H, Sodium Level 141, Potassium Level 4.2, Chloride Level 105, Carbon Dioxide Level 30, Anion Gap 6, Blood Urea Nitrogen 17, Creatinine 1.1, Estimat Glomerular Filtration Rate > 60, Glucose Level 108H, Calcium Level 9.2 02/28/18 09:15: Vancomycin Level Trough 13.0H Height (Feet): 5 Height (Inches): 4.00 Weight (Pounds): 179 General Appearance: lethargic EENT: normal ENT inspection Neck: normal alignment Cardiovascular: normal peripheral pulses, normal rate, regular rhythm Respiratory/Chest: chest wall non-tender, decreased breath sounds Abdomen: normal bowel sounds, non tender, soft Extremities: normal inspection Edema: no edema noted Arm (L), no edema noted Arm (R), no edema noted Leg (L), no edema noted Leg (R), no edema noted Pedal (L), no edema noted Pedal (R), no edema noted Generalized Neurologic: motor weakness Skin: normal pigmentation, warm/dry Elan Petersen DO Feb 28, 2018 11:04
[2018-02-28 12:00] VITALS: BP 123/70
[2018-02-28 16:00] VITALS: BP 93/58
[2018-02-28] MEDS: Azithromycin 250mg tab ORAL SCH (19:37)
[2018-02-28 20:00] VITALS: BP 117/77
[2018-02-28] MEDS: Vancomycin 1gm in D5W 275ml IVPB SCH (21:21)
[2018-02-28] MEDS: Promethazine Plain 6.25mg/5ml ORAL PRN (23:55)
[2018-03-01] VITALS: BP 114/71
[2018-03-01] MEDS: Albuterol/Ipratropium 3ml neb HHN PRN ×4 (01:56→23:20)
[2018-03-01 04:00] VITALS: BP 96/66
[2018-03-01 05:06] LABS: BASOPHILS % (AUTO) 2.3 % (0.0-2.0); EOSINOPHILS % (AUTO) 8.3 % (0.0-3.0); HEMATOCRIT 39.8 % (42.0-52.0); LYMPHOCYTES % (AUTO) 27.8 % (20.0-45.0); MEAN CORPUSCULAR VOLUME 89 FL (80-99); MONOCYTES % (AUTO) 9.5 % (1.0-10.0); NEUTROPHILS % (AUTO) 52.1 % (45.0-75.0); PLATELET COUNT 283 K/UL (150-450); RED BLOOD COUNT 4.48 M/UL (4.70-6.10); RED CELL DISTRIBUTION WIDTH 12.2 % (11.6-14.8); WHITE BLOOD COUNT 6.2 K/UL (4.8-10.8)
[2018-03-01 05:12] LABS: ANION GAP 5 mmol/L (5-15); BLOOD UREA NITROGEN 14 mg/dL (7-18); CALCIUM 9.2 MG/DL (8.5-10.1); CARBON DIOXIDE 31 MMOL/L (21-32); CHLORIDE 105 MMOL/L (98-107); CREATININE 1.2 MG/DL (0.55-1.30); POTASSIUM 3.8 MMOL/L (3.5-5.1); SODIUM 141 MMOL/L (136-145)
[2018-03-01] MEDS: Piperacillin/Tazobactam 3.375 GM in D5W 110 ML IVPB SCH ×3 (06:14→22:30)
[2018-03-01] MEDS: Morphine Sulfate 4mg/ml Inj (IV USE ONLY) IVP PRN ×2 (07:41→18:01)
[2018-03-01 08:00] VITALS: BP 99/66
[2018-03-01] MEDS: Pantoprazole Inj IV SCH (08:49)
[2018-03-01] MEDS: Vancomycin 1gm in D5W 275ml IVPB SCH ×2 (08:49→20:53)
[2018-03-01] MEDS: Heparin 5000 units/ml inj SUBQ SCH ×2 (08:53→20:54)
--- NOTE | 2018-03-01 10:11 | General Progress Note ---
Assessment/Plan Problem List: (1) Chronic respiratory failure ICD Codes: J96.10 - Chronic respiratory failure, unspecified whether with hypoxia or hypercapnia SNOMED: 39755507 (2) Pneumonia ICD Codes: J18.9 - Pneumonia, unspecified organism SNOMED: 572650895 (3) Sepsis ICD Codes: A41.9 - Sepsis, unspecified organism SNOMED: 01462069 (4) Diabetes ICD Codes: E11.9 - Type 2 diabetes mellitus without complications SNOMED: 59843157 (5) HTN (hypertension) ICD Codes: I10 - Essential (primary) hypertension SNOMED: 49358687 (6) COPD (chronic obstructive pulmonary disease) ICD Codes: J44.9 - Chronic obstructive pulmonary disease, unspecified SNOMED: 50812133 Status: stable, progressing Assessment/Plan vent abx bp bs control cbc bmp am Subjective Constitutional: Reports: weakness Allergies: Coded Allergies: No Known Allergies (Unverified , 06/17/16) All Systems: reviewed and negative except above Subjective trach vent awake Objective Last 24 Hour Vital Signs Date Time Temp Pulse Resp B/P (MAP) Pulse Ox O2 Delivery O2 Flow Rate FiO2 03/01/18 09:03 88 99/66 03/01/18 09:00 88 23 40 03/01/18 08:00 40 03/01/18 08:00 97.2 90 22 99/66 (77) 100 97.2 03/01/18 07:24 95 21 99 Mechanical Ventilator 40 03/01/18 07:19 95 22 40 03/01/18 04:33 87 24 40 03/01/18 04:00 98.1 89 22 96/66 (76) 100 98.1 03/01/18 04:00 40 03/01/18 04:00 Mechanical Ventilator 03/01/18 03:32 81 03/01/18 02:42 89 24 40 03/01/18 02:08 89 22 100 Mechanical Ventilator 40 03/01/18 02:08 40 03/01/18 01:56 98 22 100 Mechanical Ventilator 40 03/01/18 01:09 79 22 40 03/01/18 00:00 97.5 90 19 114/71 (85) 100 97.5 03/01/18 00:00 Mechanical Ventilator 03/01/18 00:00 40 03/01/18 00:00 86 02/28/18 23:01 85 21 40 02/28/18 21:11 93 22 100 Mechanical Ventilator 40 02/28/18 21:11 40 02/28/18 21:01 97 19 99 Mechanical Ventilator 40 02/28/18 21:01 94 24 40 02/28/18 20:00 97.7 97 25 117/77 (90) 100 97.7 02/28/18 20:00 Mechanical Ventilator 02/28/18 20:00 40 02/28/18 20:00 98 02/28/18 19:32 96 22 40 02/28/18 17:16 86 20 40 02/28/18 16:00 Mechanical Ventilator 02/28/18 16:00 98.3 71 20 93/58 (70) 100 98.3 02/28/18 16:00 103 02/28/18 16:00 40 02/28/18 14:01 98 22 100 Mechanical Ventilator 40 02/28/18 14:01 40 02/28/18 13:52 98 19 100 Mechanical Ventilator 40 02/28/18 12:50 92 19 40 02/28/18 12:02 Mechanical Ventilator 02/28/18 12:00 40 02/28/18 12:00 97.6 84 20 123/70 (87) 100 97.6 02/28/18 12:00 76 02/28/18 11:15 75 18 40 Intake and Output 02/28/18 03/01/18 19:00 07:00 Intake Total 840 ml 685.0 ml Output Total 400 ml 500 ml Balance 440 ml 185.0 ml Intake Oral 840 ml 300 ml IV Total 385.0 ml Output Urine Total 400 ml 500 ml # Voids 5 3 Laboratory Tests 03/01/18 03:25: White Blood Count 6.2, Red Blood Count 4.48L, Hemoglobin 13.0L, Hematocrit 39.8L , Mean Corpuscular Volume 89, Mean Corpuscular Hemoglobin 28.9, Mean Corpuscular Hemoglobin Concent 32.6, Red Cell Distribution Width 12.2, Platelet Count 283, Mean Platelet Volume 6.9, Neutrophils (%) (Auto) 52.1, Lymphocytes (% ) (Auto) 27.8, Monocytes (%) (Auto) 9.5, Eosinophils (%) (Auto) 8.3H, Basophils (%) (Auto) 2.3H, Sodium Level 141, Potassium Level 3.8, Chloride Level 105, Carbon Dioxide Level 31, Anion Gap 5, Blood Urea Nitrogen 14, Creatinine 1.2, Estimat Glomerular Filtration Rate > 60, Glucose Level 89, Calcium Level 9.2 Height (Feet): 5 Height (Inches): 4.00 Weight (Pounds): 180 General Appearance: lethargic EENT: normal ENT inspection Neck: normal alignment Cardiovascular: normal peripheral pulses, normal rate, regular rhythm Respiratory/Chest: chest wall non-tender, decreased breath sounds Abdomen: normal bowel sounds, non tender, soft Extremities: normal inspection Edema: no edema noted Arm (L), no edema noted Arm (R), no edema noted Leg (L), no edema noted Leg (R), no edema noted Pedal (L), no edema noted Pedal (R), no edema noted Generalized Neurologic: motor weakness Skin: normal pigmentation, warm/dry Elan Petersen DO Mar 01, 2018 10:11
[2018-03-01 12:00] VITALS: BP 108/58
--- NOTE | 2018-03-01 12:50 | Pulmonolgy Critical Care Note ---
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, consultants, bottle casermanager developmental - Objective Last 24 Hour Vital Signs Date Time Temp Pulse Resp B/P (MAP) Pulse Ox O2 Delivery O2 Flow Rate FiO2 03/01/18 12:00 88 03/01/18 12:00 40 03/01/18 12:00 Mechanical Ventilator 03/01/18 12:00 97.0 85 28 108/58 (75) 100 97.0 03/01/18 10:54 93 27 40 03/01/18 09:03 88 99/66 03/01/18 09:00 88 23 40 03/01/18 08:00 99 03/01/18 08:00 Mechanical Ventilator 03/01/18 08:00 40 03/01/18 08:00 97.2 90 22 99/66 (77) 100 97.2 03/01/18 07:24 95 21 99 Mechanical Ventilator 40 03/01/18 07:19 95 22 40 03/01/18 04:33 87 24 40 03/01/18 04:00 98.1 89 22 96/66 (76) 100 98.1 03/01/18 04:00 40 03/01/18 04:00 Mechanical Ventilator 03/01/18 03:32 81 03/01/18 02:42 89 24 40 03/01/18 02:08 89 22 100 Mechanical Ventilator 40 03/01/18 02:08 40 03/01/18 01:56 98 22 100 Mechanical Ventilator 40 03/01/18 01:09 79 22 40 03/01/18 00:00 97.5 90 19 114/71 (85) 100 97.5 03/01/18 00:00 Mechanical Ventilator 03/01/18 00:00 40 03/01/18 00:00 86 02/28/18 23:01 85 21 40 02/28/18 21:11 93 22 100 Mechanical Ventilator 40 02/28/18 21:11 40 02/28/18 21:01 97 19 99 Mechanical Ventilator 40 02/28/18 21:01 94 24 40 02/28/18 20:00 97.7 97 25 117/77 (90) 100 97.7 02/28/18 20:00 Mechanical Ventilator 02/28/18 20:00 40 02/28/18 20:00 98 02/28/18 19:32 96 22 40 02/28/18 17:16 86 20 40 02/28/18 16:00 Mechanical Ventilator 02/28/18 16:00 98.3 71 20 93/58 (70) 100 98.3 02/28/18 16:00 103 02/28/18 16:00 40 02/28/18 14:01 98 22 100 Mechanical Ventilator 40 02/28/18 14:01 40 02/28/18 13:52 98 19 100 Mechanical Ventilator 40 Status: awake Condition: critical Lungs: clear Heart: HR/BP stable, regular Abdomen: feeding tube Extremities: no C/C/E Decubiti: location Micro: Microbiology Date/Time Source Procedure Growth Status 02/26/18 18:30 Blood Blood Culture - Preliminary NO GROWTH AFTER 48 HOURS Resulted 02/26/18 18:30 Blood Blood Culture - Preliminary NO GROWTH AFTER 48 HOURS Resulted 02/28/18 19:40 Sputum Gram Stain - Final Resulted 02/28/18 19:40 Sputum Sputum Culture Pending Resulted Critical Care - Subjective ROS Limited/Unobtainable: Yes Condition: critical EKG Rhythm: Sinus Rhythm FI02: 40 Vent Support Breath Rate: 18 Vent Support Mode: AC Vent Tidal Volume: 600 Sputum Amount: Small PEEP: 5.0 PIP: 22 I&O: Intake and Output 02/28/18 03/01/18 19:00 07:00 Intake Total 840 ml 685.0 ml Output Total 400 ml 500 ml Balance 440 ml 185.0 ml Intake Oral 840 ml 300 ml IV Total 385.0 ml Output Urine Total 400 ml 500 ml # Voids 5 3 Labs: Laboratory Tests Test 03/01/18 03:25 White Blood Count 6.2 K/UL (4.8-10.8) Red Blood Count 4.48 M/UL (4.70-6.10) L Hemoglobin 13.0 G/DL (14.2-18.0) L Hematocrit 39.8 % (42.0-52.0) L Mean Corpuscular Volume 89 FL (80-99) Mean Corpuscular Hemoglobin 28.9 PG (27.0-31.0) Mean Corpuscular Hemoglobin Concent 32.6 G/DL (32.0-36.0) Red Cell Distribution Width 12.2 % (11.6-14.8) Platelet Count 283 K/UL (150-450) Mean Platelet Volume 6.9 FL (6.5-10.1) Neutrophils (%) (Auto) 52.1 % (45.0-75.0) Lymphocytes (%) (Auto) 27.8 % (20.0-45.0) Monocytes (%) (Auto) 9.5 % (1.0-10.0) Eosinophils (%) (Auto) 8.3 % (0.0-3.0) H Basophils (%) (Auto) 2.3 % (0.0-2.0) H Sodium Level 141 MMOL/L (136-145) Potassium Level 3.8 MMOL/L (3.5-5.1) Chloride Level 105 MMOL/L (98-107) Carbon Dioxide Level 31 MMOL/L (21-32) Anion Gap 5 mmol/L (5-15) Blood Urea Nitrogen 14 mg/dL (7-18) Creatinine 1.2 MG/DL (0.55-1.30) Estimat Glomerular Filtration Rate > 60 mL/min (>60) Glucose Level 89 MG/DL (74-106) Calcium Level 9.2 MG/DL (8.5-10.1) Demetrius Andrade MD Mar 01, 2018 12:50
[2018-03-01] MEDS: Lidocaine 1% MPF 10mg/ml 5ml HHN PRN (13:46)
[2018-03-01 16:00] VITALS: BP 100/72
[2018-03-01] MEDS ORDERED: Tubing IV Secondary IV ONE (16:34)
[2018-03-01] MEDS ORDERED: NS 275ml ONE (16:34)
[2018-03-01] MEDS ORDERED: D5W 275ml ONE (16:34)
[2018-03-01 20:00] VITALS: BP 122/82
[2018-03-01] MEDS: Azithromycin 250mg tab ORAL SCH (20:53)
[2018-03-02] VITALS (7 sets, daily range): BP systolic 94–130; BP diastolic 63–92
[2018-03-02] MEDS: Morphine Sulfate 4mg/ml Inj (IV USE ONLY) IVP PRN ×3 (00:29→23:45)
[2018-03-02] MEDS: Albuterol/Ipratropium 3ml neb HHN PRN ×4 (02:51→20:37)
[2018-03-02] MEDS: Piperacillin/Tazobactam 3.375 GM in D5W 110 ML IVPB SCH ×3 (05:08→21:47)
[2018-03-02 07:01] LABS: BASOPHILS % (AUTO) 1.8 % (0.0-2.0); EOSINOPHILS % (AUTO) 6.5 % (0.0-3.0); HEMOGLOBIN 13.2 G/DL (14.2-18.0); LYMPHOCYTES % (AUTO) 18.8 % (20.0-45.0); MEAN CORPUSCULAR VOLUME 88 FL (80-99); MONOCYTES % (AUTO) 6.5 % (1.0-10.0); NEUTROPHILS % (AUTO) 66.3 % (45.0-75.0); PLATELET COUNT 203 K/UL (150-450); RED BLOOD COUNT 4.57 M/UL (4.70-6.10); RED CELL DISTRIBUTION WIDTH 11.8 % (11.6-14.8); WHITE BLOOD COUNT 8.3 K/UL (4.8-10.8)
[2018-03-02 07:31] LABS: ALANINE AMINOTRANSFERASE 40 U/L (12-78); ALBUMIN 3.1 G/DL (3.4-5.0); ALBUMIN/GLOBULIN RATIO 0.7 (1.0-2.7); ALKALINE PHOSPHATASE 122 U/L (46-116); ANION GAP 10 mmol/L (5-15); ASPARTATE AMINO TRANSFERASE 15 U/L (15-37); BLOOD UREA NITROGEN 19 mg/dL (7-18); CALCIUM 9.1 MG/DL (8.5-10.1); CARBON DIOXIDE 28 MMOL/L (21-32); CHLORIDE 102 MMOL/L (98-107); POTASSIUM 3.8 MMOL/L (3.5-5.1); SODIUM 140 MMOL/L (136-145)
[2018-03-02] MEDS: Vancomycin 1gm in D5W 275ml IVPB SCH (09:33)
[2018-03-02] MEDS: Pantoprazole Inj IV SCH (09:35)
[2018-03-02] MEDS: Heparin 5000 units/ml inj SUBQ SCH ×2 (09:38→20:18)
--- NOTE | 2018-03-02 10:52 | Pulmonolgy Critical Care Note ---
Critical Care - Asmt/Plan Problems: (1) Acute and chronic respiratory failure (2) Sepsis (3) Nosocomial pneumonia (4) HTN (hypertension) (5) Emphysema of lung (6) Stridor (7) Hypertension Respiratory: monitor respiratory rate Renal: keep IV fluid Infectious Disease: check cultures Gastrointestinal: continue feedings/current rate Endocrine: monitor blood sugar, check TSH Hematologic: monitor H/H Neurologic: PRN Morphine Prophylaxis: Protonix, Heparin Critical Care - Objective Last 24 Hour Vital Signs Date Time Temp Pulse Resp B/P (MAP) Pulse Ox O2 Delivery O2 Flow Rate FiO2 03/02/18 10:30 40 03/02/18 10:30 90 21 100 Mechanical Ventilator 40 03/02/18 09:34 80 112/77 03/02/18 08:38 92 25 40 03/02/18 08:00 89 03/02/18 06:45 90 20 40 03/02/18 04:39 89 20 40 03/02/18 04:00 Mechanical Ventilator 03/02/18 04:00 97.7 93 22 113/72 (86) 100 97.7 03/02/18 04:00 91 03/02/18 04:00 40 03/02/18 02:56 95 23 100 Mechanical Ventilator 40 03/02/18 02:53 40 03/02/18 02:52 89 25 99 Mechanical Ventilator 40 03/02/18 02:42 89 21 40 03/02/18 00:59 97.7 03/02/18 00:40 85 18 40 03/02/18 00:29 97.7 03/02/18 00:00 Mechanical Ventilator 03/02/18 00:00 80 03/02/18 00:00 97.3 98 22 130/92 (105) 100 97.3 03/01/18 23:24 97 20 100 Mechanical Ventilator 40 03/01/18 23:21 40 03/01/18 23:20 101 21 99 Mechanical Ventilator 40 03/01/18 22:34 90 23 40 03/01/18 20:40 100 20 40 03/01/18 20:00 97.7 93 22 122/82 (95) 100 97.7 03/01/18 20:00 92 03/01/18 20:00 40 03/01/18 20:00 Mechanical Ventilator 03/01/18 19:34 98 21 100 Mechanical Ventilator 40 03/01/18 19:28 89 22 40 03/01/18 17:11 94 21 40 03/01/18 16:00 98.1 84 18 100/72 (81) 100 98.1 03/01/18 16:00 88 03/01/18 16:00 40 03/01/18 16:00 Mechanical Ventilator 03/01/18 15:00 97 23 40 03/01/18 13:49 40 03/01/18 13:46 91 19 99 Mechanical Ventilator 40 03/01/18 13:28 91 19 40 03/01/18 12:00 88 03/01/18 12:00 40 03/01/18 12:00 Mechanical Ventilator 03/01/18 12:00 97.0 85 28 108/58 (75) 100 97.0 03/01/18 10:54 93 27 40 Status: awake Condition: critical HEENT: atraumatic Lungs: clear Heart: HR/BP unstable Abdomen: non-tender, active bowel sounds Extremities: no C/C/E, edema Micro: Microbiology Date/Time Source Procedure Growth Status 02/28/18 19:40 Sputum Gram Stain - Final Resulted 02/28/18 19:40 Sputum Culture - Preliminary Gram Negative Bacillus 1 Resulted Critical Care - Subjective ROS Limited/Unobtainable: No Condition: critical EKG Rhythm: Sinus Rhythm FI02: 40 Vent Support Breath Rate: 18 Vent Support Mode: AC Vent Tidal Volume: 600 Sputum Amount: None PEEP: 5.0 PIP: 25 I&O: Intake and Output 03/01/18 03/02/18 19:00 07:00 Intake Total 540 ml 504.9 ml Output Total 450 ml 700 ml Balance 90 ml -195.1 ml Intake Oral 540 ml IV Total 504.9 ml Output Urine Total 450 ml 700 ml # Voids 4 Labs: Laboratory Tests Test 03/02/18 06:02 03/02/18 08:05 White Blood Count 8.3 K/UL (4.8-10.8) Red Blood Count 4.57 M/UL (4.70-6.10) L Hemoglobin 13.2 G/DL (14.2-18.0) L Hematocrit 40.0 % (42.0-52.0) L Mean Corpuscular Volume 88 FL (80-99) Mean Corpuscular Hemoglobin 28.9 PG (27.0-31.0) Mean Corpuscular Hemoglobin Concent 32.9 G/DL (32.0-36.0) Red Cell Distribution Width 11.8 % (11.6-14.8) Platelet Count 203 K/UL (150-450) Mean Platelet Volume 7.4 FL (6.5-10.1) Neutrophils (%) (Auto) 66.3 % (45.0-75.0) Lymphocytes (%) (Auto) 18.8 % (20.0-45.0) L Monocytes (%) (Auto) 6.5 % (1.0-10.0) Eosinophils (%) (Auto) 6.5 % (0.0-3.0) H Basophils (%) (Auto) 1.8 % (0.0-2.0) Sodium Level 140 MMOL/L (136-145) Potassium Level 3.8 MMOL/L (3.5-5.1) Chloride Level 102 MMOL/L (98-107) Carbon Dioxide Level 28 MMOL/L (21-32) Anion Gap 10 mmol/L (5-15) Blood Urea Nitrogen 19 mg/dL (7-18) H Creatinine 2.0 MG/DL (0.55-1.30) #H Estimat Glomerular Filtration Rate 40.7 mL/min (>60) Glucose Level 84 MG/DL (74-106) Calcium Level 9.1 MG/DL (8.5-10.1) Total Bilirubin 1.0 MG/DL (0.2-1.0) Aspartate Amino Transf (AST/SGOT) 15 U/L (15-37) Alanine Aminotransferase (ALT/SGPT) 40 U/L (12-78) Alkaline Phosphatase 122 U/L (46-116) H Pro-B-Type Natriuretic Peptide 128 pg/mL (0-125) H Total Protein 7.6 G/DL (6.4-8.2) Albumin 3.1 G/DL (3.4-5.0) L Globulin 4.5 g/dL Albumin/Globulin Ratio 0.7 (1.0-2.7) L Vancomycin Level Trough 28.9 ug/mL (5.0-12.0) H Demetrius Andrade MD Mar 02, 2018 10:52
--- NOTE | 2018-03-02 12:18 | Diagnostic Imaging Report ---
Indication: Dyspnea Comparison: 02/26/2018 A single view chest radiograph was obtained. Findings: Ill-defined density in the right suprahilar region of the lung. This is probably scarring accentuated by superimposed respiratory apparatus. Tracheostomy noted. The lungs appear hyperinflated. Heart size is stable. IMPRESSION: No significant change.
--- NOTE | 2018-03-02 12:48 | Infectious Diseases Prog Note ---
Assessment/Plan Assessment/Plan Probable PNA -CT chest: Consolidation and volume loss within the posterior superior segment right upper lobe, consistent with pneumonia. Review of prior imaging studies, however, indicates more extensive disease was present previously, so this probably represents residual from previous acute episodes, although it could represent recurrent acute disease. Cystic space within the apex of the right lower lobe, evident also on 11/14/2017, may reflect residua of a previous lung abscess, versus a bulla. Previously demonstrated left lung disease is largely resolved, with only minimal scarring at the left lung base. Diffuse hyperinflation, consistent with COPD changes -sp cx GNR -legionella ag urine p Afebrile, no leukocytosis Recent HCAP 2ry to MRSA, 12/2017; s/p Rx REcent CONS and ACB bacteremia 12/2017, s/o Rx -12/30 Bcx 10/08 CONS, 07/10 ACB (I Ceftriaxone; S levaquin, Ceftazidime, bactrim , Imipenem) -01/01 Bcx Neg Hx of ventilator-associated pneumonia 07/2017, s/p Rx -sp cx #P mirabilis (S Ancef, Ceftriaxone, Zosyn, Ertapenem; R Imipenem, Cipro/Levo) +4 Serratia marcecens (S Ceftriaxone, Ertapenem) Stridor ( Sp change of trach ) -CT neck: No definite acute process. Appropriate tracheostomy position. No evidence of radiopaque foreign body ORI, -supratherapeutic vanco levels DM HTN asthma/COPD interstitial PNA Colon mass s/p hemicolectomy chronic resp failure trach/vent dependant pHTN RLE DVT pulmonary nodules SNF resident Plan: -D/c empiric IV Vanco #5 -Continue empiric Zosyn d# 5/ 7 and azithromycin # 5/ 5 ( pending cultuers) -01/12 SP IV Vancomycin # 14 ( MRSA PNA), Levaquin #10 -01/11 SP Ceftazidime #7 - Sp Meropenem abx # -12/30 SP Levaquin x1, Zosyn #1 -f/u Blcx, sp cx, legionella ag urine -Monitor CBC/CMP, temperatures -aspiration precautions -Monitor CBC/BMP, temperatures -trach care -wound care/prevention per hospital protocol Discussed with RN. Subjective Allergies: Coded Allergies: No Known Allergies (Unverified , 06/17/16) Subjective afebrile no leukcoytosis Objective Vital Signs Last 24 Hour Vital Signs Date Time Temp Pulse Resp B/P (MAP) Pulse Ox O2 Delivery O2 Flow Rate FiO2 03/02/18 10:54 94 20 100 Mechanical Ventilator 40 03/02/18 10:30 40 03/02/18 10:30 90 21 100 Mechanical Ventilator 40 03/02/18 10:30 92 25 40 03/02/18 09:34 80 112/77 03/02/18 08:38 92 25 40 03/02/18 08:00 Mechanical Ventilator 03/02/18 08:00 97.0 80 20 112/77 (89) 99 97.0 03/02/18 08:00 40 03/02/18 08:00 89 03/02/18 06:45 90 20 40 03/02/18 04:39 89 20 40 03/02/18 04:00 Mechanical Ventilator 03/02/18 04:00 97.7 93 22 113/72 (86) 100 97.7 03/02/18 04:00 91 03/02/18 04:00 40 03/02/18 02:56 95 23 100 Mechanical Ventilator 40 03/02/18 02:53 40 03/02/18 02:52 89 25 99 Mechanical Ventilator 40 03/02/18 02:42 89 21 40 03/02/18 00:59 97.7 03/02/18 00:40 85 18 40 03/02/18 00:29 97.7 03/02/18 00:00 Mechanical Ventilator 03/02/18 00:00 80 03/02/18 00:00 97.3 98 22 130/92 (105) 100 97.3 03/01/18 23:24 97 20 100 Mechanical Ventilator 40 03/01/18 23:21 40 03/01/18 23:20 101 21 99 Mechanical Ventilator 40 03/01/18 22:34 90 23 40 03/01/18 20:40 100 20 40 03/01/18 20:00 97.7 93 22 122/82 (95) 100 97.7 03/01/18 20:00 92 03/01/18 20:00 40 03/01/18 20:00 Mechanical Ventilator 03/01/18 19:34 98 21 100 Mechanical Ventilator 40 8/26/18 19:28 89 22 40 03/01/18 17:11 94 21 40 03/01/18 16:00 98.1 84 18 100/72 (81) 100 98.1 03/01/18 16:00 88 03/01/18 16:00 40 03/01/18 16:00 Mechanical Ventilator 03/01/18 15:00 97 23 40 03/01/18 13:49 40 03/01/18 13:46 91 19 99 Mechanical Ventilator 40 03/01/18 13:28 91 19 40 Height (Feet): 5 Height (Inches): 4.00 Weight (Pounds): 179 Objective Lines, tubes and drains: peripheral HEENT: normocephalic, atraumatic Neck: non-tender, normal alignment Respiratory/Chest: chest wall non-tender Cardiovascular/Chest: normal rate Abdomen: normal bowel sounds, non tender Extremities: normal range of motion Microbiology Date/Time Source Procedure Growth Status 02/28/18 19:40 Sputum Gram Stain - Final Resulted 02/28/18 19:40 Sputum Culture - Preliminary Gram Negative Bacillus 1 Resulted Laboratory Tests Test 03/02/18 06:02 03/02/18 08:05 White Blood Count 8.3 K/UL (4.8-10.8) Red Blood Count 4.57 M/UL (4.70-6.10) L Hemoglobin 13.2 G/DL (14.2-18.0) L Hematocrit 40.0 % (42.0-52.0) L Mean Corpuscular Volume 88 FL (80-99) Mean Corpuscular Hemoglobin 28.9 PG (27.0-31.0) Mean Corpuscular Hemoglobin Concent 32.9 G/DL (32.0-36.0) Red Cell Distribution Width 11.8 % (11.6-14.8) Platelet Count 203 K/UL (150-450) Mean Platelet Volume 7.4 FL (6.5-10.1) Neutrophils (%) (Auto) 66.3 % (45.0-75.0) Lymphocytes (%) (Auto) 18.8 % (20.0-45.0) L Monocytes (%) (Auto) 6.5 % (1.0-10.0) Eosinophils (%) (Auto) 6.5 % (0.0-3.0) H Basophils (%) (Auto) 1.8 % (0.0-2.0) Sodium Level 140 MMOL/L (136-145) Potassium Level 3.8 MMOL/L (3.5-5.1) Chloride Level 102 MMOL/L (98-107) Carbon Dioxide Level 28 MMOL/L (21-32) Anion Gap 10 mmol/L (5-15) Blood Urea Nitrogen 19 mg/dL (7-18) H Creatinine 2.0 MG/DL (0.55-1.30) #H Estimat Glomerular Filtration Rate 40.7 mL/min (>60) Glucose Level 84 MG/DL (74-106) Calcium Level 9.1 MG/DL (8.5-10.1) Total Bilirubin 1.0 MG/DL (0.2-1.0) Aspartate Amino Transf (AST/SGOT) 15 U/L (15-37) Alanine Aminotransferase (ALT/SGPT) 40 U/L (12-78) Alkaline Phosphatase 122 U/L (46-116) H Pro-B-Type Natriuretic Peptide 128 pg/mL (0-125) H Total Protein 7.6 G/DL (6.4-8.2) Albumin 3.1 G/DL (3.4-5.0) L Globulin 4.5 g/dL Albumin/Globulin Ratio 0.7 (1.0-2.7) L Vancomycin Level Trough 28.9 ug/mL (5.0-12.0) H Current Medications Medications (Trade) Dose Ordered Sig/Shraddha Route PRN Reason Start Time Stop Time Status Last Admin Dose Admin Acetaminophen (Tylenol) 650 mg Q4H PRN ORAL FEVER 02/26/18 20:45 03/28/18 20:44 Albuterol/ Ipratropium (Albuterol/ Ipratropium) 3 ml Q4H PRN HHN Shortness of Breath 02/26/18 20:45 03/03/18 20:44 03/02/18 10:39 Amlodipine Besylate (Norvasc) 5 mg DAILY ORAL 02/27/18 09:00 03/29/18 08:59 03/02/18 09:34 Azithromycin (Zithromax) 500 mg Q24H ORAL 02/27/18 20:00 03/06/18 19:59 03/01/18 20:53 Dextrose (Dextrose 50%) 25 ml STAT PRN IV Hypoglycemia 02/26/18 20:45 03/28/18 20:44 Dextrose (Dextrose 50%) 50 ml STAT PRN IV Hypoglycemia 02/26/18 21:45 03/28/18 21:44 Heparin Sodium (Porcine) (Heparin 5000 units/ml) 5,000 units EVERY 12 HOURS SUBQ 02/26/18 21:00 03/28/18 20:59 03/02/18 09:38 Lidocaine (Xylocaine 1% MPF 5ml) 10 ml Q4H PRN HHN cough 03/01/18 12:35 03/31/18 12:34 03/01/18 13:46 Lorazepam (Ativan 2mg/ml 1ml) 2 mg Q2H PRN IV For Anxiety 02/26/18 21:30 03/05/18 21:29 Morphine Sulfate (Morphine Sulfate) 4 mg Q4H PRN IVP Severe Pain (Pain Scale 7-10) 02/26/18 21:30 03/05/18 21:29 03/02/18 07:59 Ondansetron HCl (Zofran) 4 mg Q6H PRN IVP Nausea & Vomiting 02/26/18 21:30 03/28/18 21:29 Pantoprazole (Protonix) 40 mg DAILY IV 02/27/18 09:00 03/29/18 08:59 03/02/18 09:35 Piperacillin Sod/ Tazobactam Sod 3.375 gm/Dextrose 110 ml @ 27.5 mls/hr EVERY 8 HOURS IVPB 02/27/18 22:00 03/04/18 21:59 03/02/18 05:08 Polyethylene Glycol (Miralax) 17 gm DAILYPRN PRN ORAL Constipation 02/26/18 21:30 03/28/18 21:29 Promethazine HCl (Phenergan Plain) 6.25 mg Q6H PRN ORAL For Cough 02/26/18 21:30 03/28/18 21:29 02/28/18 23:55 Vancomycin HCl (Vanco rx to dose) 1 ea DAILY PRN MISC per rx protocol 02/26/18 21:45 03/28/18 21:44 Vancomycin HCl 1 gm/Dextrose 275 ml @ 183.708 mls/hr Q12HR IVPB 02/28/18 21:00 03/05/18 20:59 03/02/18 09:33 Tianna Jolley M.D. Mar 02, 2018 12:48
--- NOTE | 2018-03-02 13:56 | General Progress Note ---
Assessment/Plan Problem List: (1) Chronic respiratory failure ICD Codes: J96.10 - Chronic respiratory failure, unspecified whether with hypoxia or hypercapnia SNOMED: 59416270 (2) Pneumonia ICD Codes: J18.9 - Pneumonia, unspecified organism SNOMED: 842686960 (3) Sepsis ICD Codes: A41.9 - Sepsis, unspecified organism SNOMED: 04576489 (4) Diabetes ICD Codes: E11.9 - Type 2 diabetes mellitus without complications SNOMED: 53967179 (5) HTN (hypertension) ICD Codes: I10 - Essential (primary) hypertension SNOMED: 96220467 (6) COPD (chronic obstructive pulmonary disease) ICD Codes: J44.9 - Chronic obstructive pulmonary disease, unspecified SNOMED: 68704421 Status: stable, progressing Assessment/Plan vent abx bp bs control cbc bmp am promise ltach eval Subjective Constitutional: Reports: weakness Allergies: Coded Allergies: No Known Allergies (Unverified , 06/17/16) All Systems: reviewed and negative except above Subjective trach vent asleep Objective Last 24 Hour Vital Signs Date Time Temp Pulse Resp B/P (MAP) Pulse Ox O2 Delivery O2 Flow Rate FiO2 03/02/18 12:00 85 03/02/18 10:54 94 20 100 Mechanical Ventilator 40 03/02/18 10:30 40 03/02/18 10:30 90 21 100 Mechanical Ventilator 40 03/02/18 10:30 92 25 40 03/02/18 09:34 80 112/77 03/02/18 08:38 92 25 40 03/02/18 08:00 Mechanical Ventilator 03/02/18 08:00 97.0 80 20 112/77 (89) 99 97.0 03/02/18 08:00 40 03/02/18 08:00 89 03/02/18 06:45 90 20 40 03/02/18 04:39 89 20 40 03/02/18 04:00 Mechanical Ventilator 03/02/18 04:00 97.7 93 22 113/72 (86) 100 97.7 03/02/18 04:00 91 03/02/18 04:00 40 03/02/18 02:56 95 23 100 Mechanical Ventilator 40 03/02/18 02:53 40 03/02/18 02:52 89 25 99 Mechanical Ventilator 40 03/02/18 02:42 89 21 40 03/02/18 00:59 97.7 03/02/18 00:40 85 18 40 03/02/18 00:29 97.7 03/02/18 00:00 Mechanical Ventilator 03/02/18 00:00 80 03/02/18 00:00 97.3 98 22 130/92 (105) 100 97.3 03/01/18 23:24 97 20 100 Mechanical Ventilator 40 03/01/18 23:21 40 03/01/18 23:20 101 21 99 Mechanical Ventilator 40 03/01/18 22:34 90 23 40 03/01/18 20:40 100 20 40 03/01/18 20:00 97.7 93 22 122/82 (95) 100 97.7 03/01/18 20:00 92 03/01/18 20:00 40 03/01/18 20:00 Mechanical Ventilator 03/01/18 19:34 98 21 100 Mechanical Ventilator 40 03/01/18 19:28 89 22 40 03/01/18 17:11 94 21 40 03/01/18 16:00 98.1 84 18 100/72 (81) 100 98.1 03/01/18 16:00 88 03/01/18 16:00 40 03/01/18 16:00 Mechanical Ventilator 03/01/18 15:00 97 23 40 Intake and Output 03/01/18 03/02/18 19:00 07:00 Intake Total 540 ml 504.9 ml Output Total 450 ml 700 ml Balance 90 ml -195.1 ml Intake Oral 540 ml IV Total 504.9 ml Output Urine Total 450 ml 700 ml # Voids 4 Laboratory Tests 03/02/18 06:02: White Blood Count 8.3, Red Blood Count 4.57L, Hemoglobin 13.2L, Hematocrit 40.0L , Mean Corpuscular Volume 88, Mean Corpuscular Hemoglobin 28.9, Mean Corpuscular Hemoglobin Concent 32.9, Red Cell Distribution Width 11.8, Platelet Count 203, Mean Platelet Volume 7.4, Neutrophils (%) (Auto) 66.3, Lymphocytes (% ) (Auto) 18.8L, Monocytes (%) (Auto) 6.5, Eosinophils (%) (Auto) 6.5H, Basophils (%) (Auto) 1.8, Sodium Level 140, Potassium Level 3.8, Chloride Level 102, Carbon Dioxide Level 28, Anion Gap 10, Blood Urea Nitrogen 19H, Creatinine 2.0#H, Estimat Glomerular Filtration Rate 40.7, Glucose Level 84, Calcium Level 9.1, Total Bilirubin 1.0, Aspartate Amino Transf (AST/SGOT) 15, Alanine Aminotransferase (ALT/SGPT) 40, Alkaline Phosphatase 122H, Pro-B-Type Natriuretic Peptide 128H, Total Protein 7.6, Albumin 3.1L, Globulin 4.5, Albumin /Globulin Ratio 0.7L 03/02/18 08:05: Vancomycin Level Trough 28.9H Height (Feet): 5 Height (Inches): 4.00 Weight (Pounds): 179 General Appearance: lethargic EENT: normal ENT inspection Neck: normal alignment Cardiovascular: normal peripheral pulses, normal rate, regular rhythm Respiratory/Chest: chest wall non-tender, decreased breath sounds Abdomen: normal bowel sounds, non tender, soft Extremities: normal inspection Edema: no edema noted Arm (L), no edema noted Arm (R), no edema noted Leg (L), no edema noted Leg (R), no edema noted Pedal (L), no edema noted Pedal (R), no edema noted Generalized Neurologic: motor weakness Skin: normal pigmentation, warm/dry Elan Petersen DO Mar 02, 2018 13:56
[2018-03-02] MEDS: Lidocaine 1% MPF 10mg/ml 5ml HHN PRN ×2 (15:15→22:52)
[2018-03-02] MEDS: Azithromycin 250mg tab ORAL SCH (19:52)
[2018-03-03] MEDS: Albuterol/Ipratropium 3ml neb HHN PRN ×3 (03:42→19:44)
[2018-03-03 04:00] VITALS: BP 128/80
[2018-03-03] MEDS: Piperacillin/Tazobactam 3.375 GM in D5W 110 ML IVPB SCH (05:37)
[2018-03-03 06:39] LABS: EOSINOPHILS % (AUTO) 5.3 % (0.0-3.0); HEMOGLOBIN 13.1 G/DL (14.2-18.0); LYMPHOCYTES % (AUTO) 11.1 % (20.0-45.0); MEAN CORPUSCULAR VOLUME 88 FL (80-99); MONOCYTES % (AUTO) 6.4 % (1.0-10.0); NEUTROPHILS % (AUTO) 76.2 % (45.0-75.0); PLATELET COUNT 276 K/UL (150-450); RED BLOOD COUNT 4.53 M/UL (4.70-6.10); RED CELL DISTRIBUTION WIDTH 11.8 % (11.6-14.8); WHITE BLOOD COUNT 10.6 K/UL (4.8-10.8)
[2018-03-03 06:46] LABS: ALANINE AMINOTRANSFERASE 37 U/L (12-78); ALBUMIN 2.9 G/DL (3.4-5.0); ALBUMIN/GLOBULIN RATIO 0.6 (1.0-2.7); ALKALINE PHOSPHATASE 119 U/L (46-116); ANION GAP 9 mmol/L (5-15); ASPARTATE AMINO TRANSFERASE 17 U/L (15-37); BILIRUBIN,TOTAL 1.7 MG/DL (0.2-1.0); BLOOD UREA NITROGEN 27 mg/dL (7-18); CALCIUM 9.2 MG/DL (8.5-10.1); CARBON DIOXIDE 30 MMOL/L (21-32); CHLORIDE 103 MMOL/L (98-107); CREATININE 3.2 MG/DL (0.55-1.30); PHOSPHORUS 4.9 MG/DL (2.5-4.9); POTASSIUM 3.7 MMOL/L (3.5-5.1); SODIUM 142 MMOL/L (136-145)
[2018-03-03 07:02] LABS: BILIRUBIN,DIRECT 0.5 MG/DL (0.0-0.3)
[2018-03-03 08:00] VITALS: BP 97/66
[2018-03-03 09:20] VITALS: BP 112/72
[2018-03-03] MEDS: Pantoprazole Inj IV SCH (09:21)
[2018-03-03] MEDS: Heparin 5000 units/ml inj SUBQ SCH ×2 (09:21→20:08)
[2018-03-03] MEDS: Morphine Sulfate 4mg/ml Inj (IV USE ONLY) IVP PRN ×3 (09:33→20:04)
--- NOTE | 2018-03-03 10:12 | Pulmonolgy Critical Care Note ---
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 - Objective Last 24 Hour Vital Signs Date Time Temp Pulse Resp B/P (MAP) Pulse Ox O2 Delivery O2 Flow Rate FiO2 03/03/18 09:20 93 20 112/72 (85) 98 03/03/18 08:55 40 03/03/18 08:55 94 22 100 Mechanical Ventilator 40 03/03/18 08:45 92 22 99 Mechanical Ventilator 40 03/03/18 08:35 94 20 40 03/03/18 08:00 96.6 94 20 97/66 (76) 96 96.6 03/03/18 06:46 93 21 40 03/03/18 05:29 101 20 40 03/03/18 04:00 40 03/03/18 04:00 Mechanical Ventilator 03/03/18 04:00 90 03/03/18 04:00 98.1 100 20 128/80 (96) 98 98.1 03/03/18 03:53 103 22 100 Mechanical Ventilator 40 03/03/18 03:43 101 22 98 Mechanical Ventilator 40 03/03/18 03:43 40 03/03/18 02:41 103 21 40 03/03/18 00:28 107 19 40 03/03/18 00:15 98.4 03/03/18 00:00 Mechanical Ventilator 03/03/18 00:00 40 03/03/18 00:00 106 03/02/18 23:45 98.4 03/02/18 23:42 98.4 100 20 126/73 (90) 98 98.4 03/02/18 22:52 113 23 40 03/02/18 22:52 40 03/02/18 22:52 113 24 100 Mechanical Ventilator 40 03/02/18 20:47 93 24 100 Mechanical Ventilator 40 03/02/18 20:37 40 03/02/18 20:36 92 25 97 Mechanical Ventilator 40 03/02/18 20:35 92 25 40 03/02/18 20:00 Mechanical Ventilator 03/02/18 20:00 40 03/02/18 20:00 98.0 95 20 101/64 (76) 98 98.0 03/02/18 20:00 97 03/02/18 19:29 94 18 40 03/02/18 17:19 98 18 40 03/02/18 16:01 Mechanical Ventilator 03/02/18 16:00 105 03/02/18 16:00 97.8 96 18 94/63 (73) 100 97.8 03/02/18 15:27 85 22 100 Mechanical Ventilator 40 03/02/18 15:15 92 18 99 Mechanical Ventilator 40 03/02/18 15:15 40 03/02/18 15:03 90 16 40 03/02/18 13:50 92 18 98 Mechanical Ventilator 40 03/02/18 13:50 40 03/02/18 13:17 92 24 40 03/02/18 12:00 Mechanical Ventilator 03/02/18 12:00 85 03/02/18 12:00 40 03/02/18 12:00 97.0 87 20 100/67 (78) 100 97.0 03/02/18 10:54 94 20 100 Mechanical Ventilator 40 03/02/18 10:30 40 03/02/18 10:30 90 21 100 Mechanical Ventilator 40 03/02/18 10:30 92 25 40 Status: awake Condition: critical Neck: full ROM Lungs: clear Heart: HR/BP stable, HR/BP unstable Abdomen: soft, active bowel sounds Extremities: no C/C/E, edema Decubiti: location, stage Micro: Microbiology Date/Time Source Procedure Growth Status 02/28/18 19:40 Sputum Gram Stain - Final Resulted 02/28/18 19:40 Sputum Culture - Preliminary Pseudomonas Aeruginosa - Mdr Gram Negative Bacillus 2 Resulted Critical Care - Subjective ROS Limited/Unobtainable: No Condition: critical EKG Rhythm: Sinus Rhythm FI02: 40 Vent Support Breath Rate: 18 Vent Support Mode: AC Vent Tidal Volume: 700 Sputum Amount: Moderate PEEP: 5.0 PIP: 24 I&O: Intake and Output 03/02/18 03/03/18 19:00 07:00 Intake Total 770 ml 137.5 ml Output Total 200 ml Balance 570 ml 137.5 ml Intake Oral 770 ml IV Total 137.5 ml Output Urine Total 200 ml # Voids 4 Labs: Laboratory Tests Test 03/03/18 05:26 White Blood Count 10.6 K/UL (4.8-10.8) Red Blood Count 4.53 M/UL (4.70-6.10) L Hemoglobin 13.1 G/DL (14.2-18.0) L Hematocrit 40.0 % (42.0-52.0) L Mean Corpuscular Volume 88 FL (80-99) Mean Corpuscular Hemoglobin 28.8 PG (27.0-31.0) Mean Corpuscular Hemoglobin Concent 32.7 G/DL (32.0-36.0) Red Cell Distribution Width 11.8 % (11.6-14.8) Platelet Count 276 K/UL (150-450) Mean Platelet Volume 7.2 FL (6.5-10.1) Neutrophils (%) (Auto) 76.2 % (45.0-75.0) H Lymphocytes (%) (Auto) 11.1 % (20.0-45.0) L Monocytes (%) (Auto) 6.4 % (1.0-10.0) Eosinophils (%) (Auto) 5.3 % (0.0-3.0) H Basophils (%) (Auto) 1.0 % (0.0-2.0) Sodium Level 142 MMOL/L (136-145) Potassium Level 3.7 MMOL/L (3.5-5.1) Chloride Level 103 MMOL/L (98-107) Carbon Dioxide Level 30 MMOL/L (21-32) Anion Gap 9 mmol/L (5-15) Blood Urea Nitrogen 27 mg/dL (7-18) H Creatinine 3.2 MG/DL (0.55-1.30) #H Estimat Glomerular Filtration Rate 23.6 mL/min (>60) Glucose Level 90 MG/DL (74-106) Calcium Level 9.2 MG/DL (8.5-10.1) Phosphorus Level 4.9 MG/DL (2.5-4.9) Magnesium Level 2.1 MG/DL (1.8-2.4) Total Bilirubin 1.7 MG/DL (0.2-1.0) H Direct Bilirubin 0.5 MG/DL (0.0-0.3) H Aspartate Amino Transf (AST/SGOT) 17 U/L (15-37) Alanine Aminotransferase (ALT/SGPT) 37 U/L (12-78) Alkaline Phosphatase 119 U/L (46-116) H Total Protein 7.5 G/DL (6.4-8.2) Albumin 2.9 G/DL (3.4-5.0) L Globulin 4.6 g/dL Albumin/Globulin Ratio 0.6 (1.0-2.7) L Demetrius Andrade MD Mar 03, 2018 10:12
[2018-03-03] MEDS: Lidocaine 1% MPF 10mg/ml 5ml HHN PRN (10:53)
--- NOTE | 2018-03-03 11:38 | Infectious Diseases Prog Note ---
Assessment/Plan Assessment/Plan Probable PNA -CT chest: Consolidation and volume loss within the posterior superior segment right upper lobe, consistent with pneumonia. Review of prior imaging studies, however, indicates more extensive disease was present previously, so this probably represents residual from previous acute episodes, although it could represent recurrent acute disease. Cystic space within the apex of the right lower lobe, evident also on 11/14/2017, may reflect residua of a previous lung abscess, versus a bulla. Previously demonstrated left lung disease is largely resolved, with only minimal scarring at the left lung base. Diffuse hyperinflation, consistent with COPD changes -sp cx MDR PsA (S genta), GNR #2 -legionella ag urine p Afebrile, no leukocytosis Recent HCAP 2ry to MRSA, 12/2017; s/p Rx REcent CONS and ACB bacteremia 12/2017, s/o Rx -12/30 Bcx 10/08 CONS, 07/10 ACB (I Ceftriaxone; S levaquin, Ceftazidime, bactrim , Imipenem) -01/01 Bcx Neg Hx of ventilator-associated pneumonia 07/2017, s/p Rx -sp cx #P mirabilis (S Ancef, Ceftriaxone, Zosyn, Ertapenem; R Imipenem, Cipro/Levo) +4 Serratia marcecens (S Ceftriaxone, Ertapenem) Stridor ( Sp change of trach ) -CT neck: No definite acute process. Appropriate tracheostomy position. No evidence of radiopaque foreign body ORI, worsneing -supratherapeutic vanco levels; vanco d/c 03/02 DM HTN asthma/COPD interstitial PNA Colon mass s/p hemicolectomy chronic resp failure trach/vent dependant pHTN RLE DVT pulmonary nodules SNF resident Plan: -D/c empiric Zosyn d# 6 and start INH Colistin for MDR PsA in sputum cx -03/02 SP IV Vanco #5, azithromycin # 5 -/9 SP IV Vancomycin # 14 ( MRSA PNA), Levaquin #10 -01/11 SP Ceftazidime #7 - Sp Meropenem abx #4 -12/30 SP Levaquin x1, Zosyn #1 -f/u Blcx, sp cx, legionella ag urine -Monitor CBC/CMP, temperatures -aspiration precautions -Monitor CBC/BMP, temperatures -trach care -wound care/prevention per hospital protocol Discussed with RN and pharmacy staff. Subjective Allergies: Coded Allergies: No Known Allergies (Unverified , 06/17/16) Subjective afebrile no leukcoytosis Objective Vital Signs Last 24 Hour Vital Signs Date Time Temp Pulse Resp B/P (MAP) Pulse Ox O2 Delivery O2 Flow Rate FiO2 03/03/18 10:53 88 21 98 Mechanical Ventilator 40 03/03/18 10:51 88 18 40 03/03/18 09:20 93 20 112/72 (85) 98 03/03/18 09:00 94 97/66 03/03/18 08:55 40 03/03/18 08:55 94 22 100 Mechanical Ventilator 40 03/03/18 08:45 92 22 99 Mechanical Ventilator 40 03/03/18 08:35 94 20 40 03/03/18 08:00 96.6 94 20 97/66 (76) 96 96.6 03/03/18 06:46 93 21 40 03/03/18 05:29 101 20 40 03/03/18 04:00 40 03/03/18 04:00 Mechanical Ventilator 03/03/18 04:00 90 03/03/18 04:00 98.1 100 20 128/80 (96) 98 98.1 03/03/18 03:53 103 22 100 Mechanical Ventilator 40 03/03/18 03:43 101 22 98 Mechanical Ventilator 40 03/03/18 03:43 40 03/03/18 02:41 103 21 40 03/03/18 00:28 107 19 40 03/03/18 00:15 98.4 03/03/18 00:00 Mechanical Ventilator 03/03/18 00:00 40 03/03/18 00:00 106 03/02/18 23:45 98.4 03/02/18 23:42 98.4 100 20 126/73 (90) 98 98.4 03/02/18 22:52 113 23 40 03/02/18 22:52 40 03/02/18 22:52 113 24 100 Mechanical Ventilator 40 03/02/18 20:47 93 24 100 Mechanical Ventilator 40 03/02/18 20:37 40 03/02/18 20:36 92 25 97 Mechanical Ventilator 40 03/02/18 20:35 92 25 40 03/02/18 20:00 Mechanical Ventilator 03/02/18 20:00 40 03/02/18 20:00 98.0 95 20 101/64 (76) 98 98.0 03/02/18 20:00 97 03/02/18 19:29 94 18 40 03/02/18 17:19 98 18 40 03/02/18 16:01 Mechanical Ventilator 03/02/18 16:00 105 03/02/18 16:00 97.8 96 18 94/63 (73) 100 97.8 03/02/18 15:27 85 22 100 Mechanical Ventilator 40 03/02/18 15:15 92 18 99 Mechanical Ventilator 40 03/02/18 15:15 40 03/02/18 15:03 90 16 40 03/02/18 13:50 92 18 98 Mechanical Ventilator 40 03/02/18 13:50 40 03/02/18 13:17 92 24 40 03/02/18 12:00 Mechanical Ventilator 03/02/18 12:00 85 03/02/18 12:00 40 03/02/18 12:00 97.0 87 20 100/67 (78) 100 97.0 Height (Feet): 5 Height (Inches): 4.00 Weight (Pounds): 180 Objective Lines, tubes and drains: peripheral HEENT: normocephalic, atraumatic Neck: non-tender, normal alignment Respiratory/Chest: chest wall non-tender Cardiovascular/Chest: normal rate Abdomen: normal bowel sounds, non tender Extremities: normal range of motion Microbiology Date/Time Source Procedure Growth Status 02/28/18 19:40 Sputum Gram Stain - Final Resulted 02/28/18 19:40 Sputum Culture - Preliminary Pseudomonas Aeruginosa - Mdr Gram Negative Bacillus 2 Resulted Laboratory Tests Test 03/03/18 05:26 White Blood Count 10.6 K/UL (4.8-10.8) Red Blood Count 4.53 M/UL (4.70-6.10) L Hemoglobin 13.1 G/DL (14.2-18.0) L Hematocrit 40.0 % (42.0-52.0) L Mean Corpuscular Volume 88 FL (80-99) Mean Corpuscular Hemoglobin 28.8 PG (27.0-31.0) Mean Corpuscular Hemoglobin Concent 32.7 G/DL (32.0-36.0) Red Cell Distribution Width 11.8 % (11.6-14.8) Platelet Count 276 K/UL (150-450) Mean Platelet Volume 7.2 FL (6.5-10.1) Neutrophils (%) (Auto) 76.2 % (45.0-75.0) H Lymphocytes (%) (Auto) 11.1 % (20.0-45.0) L Monocytes (%) (Auto) 6.4 % (1.0-10.0) Eosinophils (%) (Auto) 5.3 % (0.0-3.0) H Basophils (%) (Auto) 1.0 % (0.0-2.0) Sodium Level 142 MMOL/L (136-145) Potassium Level 3.7 MMOL/L (3.5-5.1) Chloride Level 103 MMOL/L (98-107) Carbon Dioxide Level 30 MMOL/L (21-32) Anion Gap 9 mmol/L (5-15) Blood Urea Nitrogen 27 mg/dL (7-18) H Creatinine 3.2 MG/DL (0.55-1.30) #H Estimat Glomerular Filtration Rate 23.6 mL/min (>60) Glucose Level 90 MG/DL (74-106) Calcium Level 9.2 MG/DL (8.5-10.1) Phosphorus Level 4.9 MG/DL (2.5-4.9) Magnesium Level 2.1 MG/DL (1.8-2.4) Total Bilirubin 1.7 MG/DL (0.2-1.0) H Direct Bilirubin 0.5 MG/DL (0.0-0.3) H Aspartate Amino Transf (AST/SGOT) 17 U/L (15-37) Alanine Aminotransferase (ALT/SGPT) 37 U/L (12-78) Alkaline Phosphatase 119 U/L (46-116) H Total Protein 7.5 G/DL (6.4-8.2) Albumin 2.9 G/DL (3.4-5.0) L Globulin 4.6 g/dL Albumin/Globulin Ratio 0.6 (1.0-2.7) L Current Medications Medications (Trade) Dose Ordered Sig/Shraddha Route PRN Reason Start Time Stop Time Status Last Admin Dose Admin Acetaminophen (Tylenol) 650 mg Q4H PRN ORAL FEVER 02/26/18 20:45 03/28/18 20:44 Albuterol/ Ipratropium (Albuterol/ Ipratropium) 3 ml Q4H PRN HHN Shortness of Breath 02/26/18 20:45 03/03/18 20:44 03/03/18 08:45 Amlodipine Besylate (Norvasc) 5 mg DAILY ORAL 02/27/18 09:00 03/29/18 08:59 03/02/18 09:34 Colistimethate Sodium (Colistin *inhalation use only*) 150 mg ONCE INH 03/03/18 12:00 03/03/18 14:00 Colistimethate Sodium (Colistin *inhalation use only*) 150 mg Q12HR@10,22 INH 03/03/18 22:00 03/10/18 21:59 Dextrose (Dextrose 50%) 25 ml STAT PRN IV Hypoglycemia 02/26/18 20:45 03/28/18 20:44 Dextrose (Dextrose 50%) 50 ml STAT PRN IV Hypoglycemia 02/26/18 21:45 03/28/18 21:44 Heparin Sodium (Porcine) (Heparin 5000 units/ml) 5,000 units EVERY 12 HOURS SUBQ 02/26/18 21:00 03/28/18 20:59 03/03/18 09:21 Lidocaine (Xylocaine 1% MPF 5ml) 10 ml Q4H PRN HHN cough 03/01/18 12:35 03/31/18 12:34 03/03/18 10:53 Lorazepam (Ativan 2mg/ml 1ml) 2 mg Q2H PRN IV For Anxiety 02/26/18 21:30 03/05/18 21:29 Morphine Sulfate (Morphine Sulfate) 4 mg Q4H PRN IVP Severe Pain (Pain Scale 7-10) 02/26/18 21:30 03/05/18 21:29 03/03/18 09:33 Ondansetron HCl (Zofran) 4 mg Q6H PRN IVP Nausea & Vomiting 02/26/18 21:30 03/28/18 21:29 Pantoprazole (Protonix) 40 mg DAILY IV 02/27/18 09:00 03/29/18 08:59 03/03/18 09:21 Polyethylene Glycol (Miralax) 17 gm DAILYPRN PRN ORAL Constipation 02/26/18 21:30 03/28/18 21:29 Promethazine HCl (Phenergan Plain) 6.25 mg Q6H PRN ORAL For Cough 02/26/18 21:30 03/28/18 21:29 02/28/18 23:55 Tianna Jolley M.D. Mar 03, 2018 11:38
[2018-03-03] MEDS ORDERED: Colistin for inhalation INH SCH (12:00)
[2018-03-03 12:06] VITALS: BP 111/87
--- NOTE | 2018-03-03 13:44 | General Progress Note ---
Assessment/Plan Problem List: (1) Chronic respiratory failure ICD Codes: J96.10 - Chronic respiratory failure, unspecified whether with hypoxia or hypercapnia SNOMED: 42604183 (2) Pneumonia ICD Codes: J18.9 - Pneumonia, unspecified organism SNOMED: 334002490 (3) Sepsis ICD Codes: A41.9 - Sepsis, unspecified organism SNOMED: 01740203 (4) Diabetes ICD Codes: E11.9 - Type 2 diabetes mellitus without complications SNOMED: 41920121 (5) HTN (hypertension) ICD Codes: I10 - Essential (primary) hypertension SNOMED: 06619555 (6) COPD (chronic obstructive pulmonary disease) ICD Codes: J44.9 - Chronic obstructive pulmonary disease, unspecified SNOMED: 24327251 Status: stable, progressing Assessment/Plan vent abx bp bs control cbc bmp am dc plan to snf if clear Subjective Constitutional: Reports: weakness Allergies: Coded Allergies: No Known Allergies (Unverified , 06/17/16) All Systems: reviewed and negative except above Subjective trach vent awake Objective Last 24 Hour Vital Signs Date Time Temp Pulse Resp B/P (MAP) Pulse Ox O2 Delivery O2 Flow Rate FiO2 03/03/18 13:41 40 03/03/18 13:41 102 22 100 Mechanical Ventilator 40 03/03/18 13:29 106 22 99 Mechanical Ventilator 40 03/03/18 13:12 100 20 40 03/03/18 12:06 98.0 106 18 111/87 (95) 96 98.0 03/03/18 12:00 Mechanical Ventilator 03/03/18 12:00 40 03/03/18 12:00 95 03/03/18 11:00 40 03/03/18 11:00 98 21 99 Mechanical Ventilator 40 03/03/18 10:53 88 21 98 Mechanical Ventilator 40 03/03/18 10:51 88 18 40 03/03/18 09:20 93 20 112/72 (85) 98 03/03/18 09:00 94 97/66 03/03/18 08:55 40 03/03/18 08:55 94 22 100 Mechanical Ventilator 40 03/03/18 08:45 92 22 99 Mechanical Ventilator 40 03/03/18 08:35 94 20 40 03/03/18 08:00 Mechanical Ventilator 03/03/18 08:00 96.6 94 20 97/66 (76) 96 96.6 03/03/18 08:00 96 03/03/18 08:00 40 03/03/18 06:46 93 21 40 03/03/18 05:29 101 20 40 03/03/18 04:00 40 03/03/18 04:00 Mechanical Ventilator 03/03/18 04:00 90 03/03/18 04:00 98.1 100 20 128/80 (96) 98 98.1 03/03/18 03:53 103 22 100 Mechanical Ventilator 40 03/03/18 03:43 101 22 98 Mechanical Ventilator 40 03/03/18 03:43 40 03/03/18 02:41 103 21 40 03/03/18 00:28 107 19 40 03/03/18 00:15 98.4 03/03/18 00:00 Mechanical Ventilator 03/03/18 00:00 40 03/03/18 00:00 106 03/02/18 23:45 98.4 03/02/18 23:42 98.4 100 20 126/73 (90) 98 98.4 03/02/18 22:52 113 23 40 03/02/18 22:52 40 03/02/18 22:52 113 24 100 Mechanical Ventilator 40 03/02/18 20:47 93 24 100 Mechanical Ventilator 40 03/02/18 20:37 40 03/02/18 20:36 92 25 97 Mechanical Ventilator 40 03/02/18 20:35 92 25 40 03/02/18 20:00 Mechanical Ventilator 03/02/18 20:00 40 03/02/18 20:00 98.0 95 20 101/64 (76) 98 98.0 03/02/18 20:00 97 03/02/18 19:29 94 18 40 03/02/18 17:19 98 18 40 03/02/18 16:01 Mechanical Ventilator 03/02/18 16:00 105 03/02/18 16:00 97.8 96 18 94/63 (73) 100 97.8 03/02/18 15:27 85 22 100 Mechanical Ventilator 40 03/02/18 15:15 92 18 99 Mechanical Ventilator 40 03/02/18 15:15 40 03/02/18 15:03 90 16 40 03/02/18 13:50 92 18 98 Mechanical Ventilator 40 03/02/18 13:50 40 Intake and Output 03/02/18 03/03/18 19:00 07:00 Intake Total 770 ml 137.5 ml Output Total 200 ml Balance 570 ml 137.5 ml Intake Oral 770 ml IV Total 137.5 ml Output Urine Total 200 ml # Voids 4 Laboratory Tests 03/03/18 05:26: White Blood Count 10.6, Red Blood Count 4.53L, Hemoglobin 13.1L, Hematocrit 40.0L, Mean Corpuscular Volume 88, Mean Corpuscular Hemoglobin 28.8, Mean Corpuscular Hemoglobin Concent 32.7, Red Cell Distribution Width 11.8, Platelet Count 276, Mean Platelet Volume 7.2, Neutrophils (%) (Auto) 76.2H, Lymphocytes ( %) (Auto) 11.1L, Monocytes (%) (Auto) 6.4, Eosinophils (%) (Auto) 5.3H, Basophils (%) (Auto) 1.0, Sodium Level 142, Potassium Level 3.7, Chloride Level 103, Carbon Dioxide Level 30, Anion Gap 9, Blood Urea Nitrogen 27H, Creatinine 3.2#H, Estimat Glomerular Filtration Rate 23.6, Glucose Level 90, Calcium Level 9.2, Phosphorus Level 4.9, Magnesium Level 2.1, Total Bilirubin 1.7H, Direct Bilirubin 0.5H, Aspartate Amino Transf (AST/SGOT) 17, Alanine Aminotransferase ( ALT/SGPT) 37, Alkaline Phosphatase 119H, Total Protein 7.5, Albumin 2.9L, Globulin 4.6, Albumin/Globulin Ratio 0.6L Height (Feet): 5 Height (Inches): 4.00 Weight (Pounds): 180 Elan Petersen DO Mar 03, 2018 13:44
[2018-03-03 16:00] VITALS: BP 103/72
[2018-03-03] MEDS ORDERED: Sodium Chloride 500ML 500 ML IV ONE (17:15)
--- NOTE | 2018-03-03 17:16 | Consultation ---
Consult Note Consult Note asked to eval for acute renal failure- Rise in serum Cr in 48 hours from 1.2 to 3.2 Assessment/Plan Possible etiologies: Low BP Nephrotoxic drugs- High Vanco level- Other: Acute and chronic respiratory failure Sepsis Nosocomial pneumonia h/o HTN (hypertension) Emphysema of lung Urine eosinophils- DC Norvasc Bolus ALbumin and NS monitor Vanco level 2D echo Kidney Tyler Yousif MD Mar 03, 2018 17:16
[2018-03-03] MEDS ORDERED: Piperacillin/Tazobactam 3.375 GM in D5W 110 ML IVPB SCH (18:00)
[2018-03-03 20:00] VITALS: BP 116/80
[2018-03-03] MEDS: Colistin for inhalation INH SCH (22:23)
[2018-03-04] VITALS: BP 112/82
[2018-03-04] MEDS: Morphine Sulfate 4mg/ml Inj (IV USE ONLY) IVP PRN ×4 (02:07→21:44)
[2018-03-04] MEDS: Lidocaine 1% MPF 10mg/ml 5ml HHN PRN (03:06)
[2018-03-04 04:00] VITALS: BP 107/75
[2018-03-04] MEDS: Promethazine Plain 6.25mg/5ml ORAL PRN (04:24)
[2018-03-04 07:22] LABS: BASOPHILS % (AUTO) 1.7 % (0.0-2.0); EOSINOPHILS % (AUTO) 12.9 % (0.0-3.0); HEMATOCRIT 35.9 % (42.0-52.0); HEMOGLOBIN 11.5 G/DL (14.2-18.0); LYMPHOCYTES % (AUTO) 19.4 % (20.0-45.0); MEAN CORPUSCULAR VOLUME 88 FL (80-99); NEUTROPHILS % (AUTO) 57.1 % (45.0-75.0); PLATELET COUNT 252 K/UL (150-450); RED BLOOD COUNT 4.06 M/UL (4.70-6.10); RED CELL DISTRIBUTION WIDTH 11.9 % (11.6-14.8); WHITE BLOOD COUNT 6.4 K/UL (4.8-10.8)
[2018-03-04 07:29] LABS: CREATINE KINASE 52 U/L (26-308); GAMMA GLUTAMYL TRANSPEPTIDASE 72 U/L (5-85)
[2018-03-04 07:38] LABS: ALANINE AMINOTRANSFERASE 32 U/L (12-78); ALBUMIN 3.3 G/DL (3.4-5.0); ALBUMIN/GLOBULIN RATIO 0.8 (1.0-2.7); ALKALINE PHOSPHATASE 102 U/L (46-116); ANION GAP 9 mmol/L (5-15); ASPARTATE AMINO TRANSFERASE 12 U/L (15-37); BILIRUBIN,TOTAL 0.9 MG/DL (0.2-1.0); BLOOD UREA NITROGEN 27 mg/dL (7-18); CALCIUM 9.2 MG/DL (8.5-10.1); CARBON DIOXIDE 28 MMOL/L (21-32); CHLORIDE 106 MMOL/L (98-107); CREATININE 3.3 MG/DL (0.55-1.30); PHOSPHORUS 3.8 MG/DL (2.5-4.9); POTASSIUM 3.5 MMOL/L (3.5-5.1); SODIUM 143 MMOL/L (136-145)
[2018-03-04 08:00] VITALS: BP 108/71
[2018-03-04] MEDS: Pantoprazole Inj IV SCH (08:42)
[2018-03-04] MEDS: Heparin 5000 units/ml inj SUBQ SCH ×2 (08:45→21:46)
--- NOTE | 2018-03-04 09:09 | Nephrology Progress Note ---
Assessment/Plan Problem List: (1) Acute renal failure (ARF) (2) Acute and chronic respiratory failure (3) Sepsis Assessment Acute Renal failure Possible etiologies: Low BP Nephrotoxic drugs- High Vanco level- Cr leveling 3.3 today Other: Acute and chronic respiratory failure Sepsis Nosocomial pneumonia h/o HTN (hypertension) Emphysema of lung Plan Urine eosinophils- DC Norvasc and bp meds Bolus ALbumin and NS monitor Vanco level down to 20 today 2D echo Pending Kidney KARIN Pending Monitor renal parameters ABG Subjective ROS Limited/Unobtainable: Yes Objective Objective Last 24 Hour Vital Signs Date Time Temp Pulse Resp B/P (MAP) Pulse Ox O2 Delivery O2 Flow Rate FiO2 03/04/18 04:54 87 18 40 03/04/18 04:00 82 03/04/18 04:00 97.5 90 18 107/75 (86) 100 97.5 03/04/18 04:00 40 03/04/18 04:00 Mechanical Ventilator 03/04/18 03:06 84 22 98 Mechanical Ventilator 40 03/04/18 03:05 83 18 40 03/04/18 01:14 89 18 40 03/04/18 00:00 Mechanical Ventilator 03/04/18 00:00 97.8 87 18 112/82 (92) 100 97.8 03/04/18 00:00 40 03/04/18 00:00 79 03/03/18 23:09 94 20 100 Mechanical Ventilator 40 03/03/18 23:08 40 03/03/18 22:26 85 19 40 03/03/18 22:26 85 22 99 Mechanical Ventilator 40 03/03/18 22:24 85 18 Mechanical Ventilator 40 03/03/18 21:02 92 18 40 03/03/18 20:00 40 03/03/18 20:00 Mechanical Ventilator 03/03/18 20:00 97.7 97 18 116/80 (92) 100 97.7 03/03/18 20:00 98 03/03/18 19:54 95 20 100 Mechanical Ventilator 40 03/03/18 19:53 40 03/03/18 19:44 96 22 99 Mechanical Ventilator 40 03/03/18 19:43 93 19 40 03/03/18 16:41 92 19 40 03/03/18 16:00 40 03/03/18 16:00 95 8/28/18 16:00 97.7 100 20 103/72 (82) 100 97.7 03/03/18 16:00 Mechanical Ventilator 03/03/18 14:50 94 18 40 03/03/18 13:41 40 03/03/18 13:41 102 22 100 Mechanical Ventilator 40 03/03/18 13:29 106 22 99 Mechanical Ventilator 40 03/03/18 13:12 100 20 40 03/03/18 12:06 98.0 106 18 111/87 (95) 96 98.0 03/03/18 12:00 Mechanical Ventilator 03/03/18 12:00 40 03/03/18 12:00 95 03/03/18 11:00 40 03/03/18 11:00 98 21 99 Mechanical Ventilator 40 03/03/18 10:53 88 21 98 Mechanical Ventilator 40 03/03/18 10:51 88 18 40 03/03/18 09:20 93 20 112/72 (85) 98 Intake and Output 03/03/18 03/04/18 19:00 07:00 Intake Total 682.5 ml 250 ml Output Total 450 ml Balance 682.5 ml -200 ml Intake Oral 600 ml 250 ml IV Total 82.5 ml Output Urine Total 450 ml # Voids 200 Laboratory Tests 03/03/18 17:07: Urine Random Sodium 33 03/04/18 03:45: Urine Eosinophils [Pending] 03/04/18 06:35: White Blood Count 6.4, Red Blood Count 4.06L, Hemoglobin 11.5L, Hematocrit 35.9L , Mean Corpuscular Volume 88, Mean Corpuscular Hemoglobin 28.2, Mean Corpuscular Hemoglobin Concent 32.0, Red Cell Distribution Width 11.9, Platelet Count 252, Mean Platelet Volume 7.0, Neutrophils (%) (Auto) 57.1, Lymphocytes (% ) (Auto) 19.4L, Monocytes (%) (Auto) 9.0, Eosinophils (%) (Auto) 12.9H, Basophils (%) (Auto) 1.7, Erythrocyte Sedimentation Rate [Pending], Sodium Level 143, Potassium Level 3.5, Chloride Level 106, Carbon Dioxide Level 28, Anion Gap 9, Blood Urea Nitrogen 27H, Creatinine 3.3H, Estimat Glomerular Filtration Rate 22.8, Glucose Level 81, Hemoglobin A1c 5.8, Uric Acid 6.2, Calcium Level 9.2, Phosphorus Level 3.8, Magnesium Level 2.4, Total Bilirubin 0.9, Gamma Glutamyl Transpeptidase 72, Aspartate Amino Transf (AST/SGOT) 12L, Alanine Aminotransferase (ALT/SGPT) 32, Alkaline Phosphatase 102, Total Creatine Kinase 52, Troponin I 0.000, C-Reactive Protein, Quantitative 6.4H, Pro -B-Type Natriuretic Peptide 112, Total Protein 7.4, Albumin 3.3L, Globulin 4.1, Albumin/Globulin Ratio 0.8L, Lipase 66L, Thyroid Stimulating Hormone (TSH) 1.044 , Random Vancomycin Level 20.5 Height (Feet): 5 Height (Inches): 4.00 Weight (Pounds): 179 EENT: other - on vent Cardiovascular: tachycardia Respiratory/Chest: decreased breath sounds Abdomen: distended Tyler Srivastava MD Mar 04, 2018 09:09
[2018-03-04] MEDS: Colistin for inhalation INH SCH ×2 (09:24→21:16)
--- NOTE | 2018-03-04 10:46 | Diagnostic Imaging Report ---
Indication:Elevated Bun and Creatinine. Technique: Grayscale and duplex Doppler imaging of the kidneys performed. Comparison: None Findings: The size, contour, and echogenicity of both kidneys are within normal limits. Kidneys measure 12 cm in the right and between 12 and 13 cm in the left. There is no hydronephrosis. The IVC and urinary bladder are unremarkable. Johnson catheter noted. IMPRESSION: Negative study
--- NOTE | 2018-03-04 11:08 | Pulmonolgy Critical Care Note ---
Critical Care - Asmt/Plan Problems: (1) Acute renal failure (ARF) (2) Acute and chronic respiratory failure (3) Sepsis (4) Nosocomial pneumonia (5) HTN (hypertension) (6) Emphysema of lung (7) Stridor (8) Hypertension Respiratory: monitor respiratory rate, adjust FIO2 Cardiac: continue pressors Renal: F/U I&O, check electrolytes Infectious Disease: check cultures Gastrointestinal: continue feedings/current rate Endocrine: monitor blood sugar, check HgA1C Hematologic: transfuse if hgb<8.5 Neurologic: PRN Morphine, keep patient comfortable Affect: PRN ativan Disposition: keep in ICU Notes Reviewed: patient care provider, renal 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, consultants, case supervisormanager clinical - Objective Last 24 Hour Vital Signs Date Time Temp Pulse Resp B/P (MAP) Pulse Ox O2 Delivery O2 Flow Rate FiO2 03/04/18 09:32 88 18 100 Mechanical Ventilator 40 03/04/18 09:32 40 03/04/18 09:24 86 18 100 Mechanical Ventilator 40 03/04/18 09:22 86 18 40 03/04/18 09:11 103 03/04/18 08:00 40 03/04/18 08:00 Mechanical Ventilator 03/04/18 08:00 98.3 93 18 108/71 (83) 100 98.3 03/04/18 06:33 84 18 40 03/04/18 04:54 87 18 40 03/04/18 04:00 82 03/04/18 04:00 97.5 90 18 107/75 (86) 100 97.5 03/04/18 04:00 40 03/04/18 04:00 Mechanical Ventilator 03/04/18 03:06 84 22 98 Mechanical Ventilator 40 03/04/18 03:05 83 18 40 03/04/18 01:14 89 18 40 03/04/18 00:00 Mechanical Ventilator 03/04/18 00:00 97.8 87 18 112/82 (92) 100 97.8 03/04/18 00:00 40 03/04/18 00:00 79 03/03/18 23:09 94 20 100 Mechanical Ventilator 40 03/03/18 23:08 40 03/03/18 22:26 85 19 40 03/03/18 22:26 85 22 99 Mechanical Ventilator 40 03/03/18 22:24 85 18 Mechanical Ventilator 40 03/03/18 21:02 92 18 40 03/03/18 20:00 40 03/03/18 20:00 Mechanical Ventilator 03/03/18 20:00 97.7 97 18 116/80 (92) 100 97.7 03/03/18 20:00 98 03/03/18 19:54 95 20 100 Mechanical Ventilator 40 03/03/18 19:53 40 03/03/18 19:44 96 22 99 Mechanical Ventilator 40 03/03/18 19:43 93 19 40 03/03/18 16:41 92 19 40 03/03/18 16:00 40 03/03/18 16:00 95 03/03/18 16:00 97.7 100 20 103/72 (82) 100 97.7 03/03/18 16:00 Mechanical Ventilator 03/03/18 14:50 94 18 40 03/03/18 13:41 40 03/03/18 13:41 102 22 100 Mechanical Ventilator 40 03/03/18 13:29 106 22 99 Mechanical Ventilator 40 03/03/18 13:12 100 20 40 03/03/18 12:06 98.0 106 18 111/87 (95) 96 98.0 03/03/18 12:00 Mechanical Ventilator 03/03/18 12:00 40 03/03/18 12:00 95 Status: awake Condition: critical HEENT: atraumatic Neck: full ROM Heart: HR/BP stable, HR/BP unstable Abdomen: non-tender, feeding tube Extremities: edema Decubiti: location Critical Care - Subjective ROS Limited/Unobtainable: Yes Condition: critical EKG Rhythm: Sinus Rhythm FI02: 40 Vent Support Breath Rate: 18 Vent Support Mode: AC Vent Tidal Volume: 700 Sputum Amount: Small PEEP: 5.0 PIP: 45 I&O: Intake and Output 03/03/18 03/04/18 19:00 07:00 Intake Total 682.5 ml 250 ml Output Total 450 ml Balance 682.5 ml -200 ml Intake Oral 600 ml 250 ml IV Total 82.5 ml Output Urine Total 450 ml # Voids 200 CXR: RICH Labs: Laboratory Tests Test 03/03/18 17:07 03/04/18 03:45 03/04/18 06:35 03/04/18 09:50 Urine Random Sodium 33 mmol/L (20-110) Urine Eosinophils Pending White Blood Count 6.4 K/UL (4.8-10.8) Red Blood Count 4.06 M/UL (4.70-6.10) L Hemoglobin 11.5 G/DL (14.2-18.0) L Hematocrit 35.9 % (42.0-52.0) L Mean Corpuscular Volume 88 FL (80-99) Mean Corpuscular Hemoglobin 28.2 PG (27.0-31.0) Mean Corpuscular Hemoglobin Concent 32.0 G/DL (32.0-36.0) Red Cell Distribution Width 11.9 % (11.6-14.8) Platelet Count 252 K/UL (150-450) Mean Platelet Volume 7.0 FL (6.5-10.1) Neutrophils (%) (Auto) 57.1 % (45.0-75.0) Lymphocytes (%) (Auto) 19.4 % (20.0-45.0) L Monocytes (%) (Auto) 9.0 % (1.0-10.0) Eosinophils (%) (Auto) 12.9 % (0.0-3.0) H Basophils (%) (Auto) 1.7 % (0.0-2.0) Erythrocyte Sedimentation Rate 61 MM/HR (0-20) H Sodium Level 143 MMOL/L (136-145) Potassium Level 3.5 MMOL/L (3.5-5.1) Chloride Level 106 MMOL/L (98-107) Carbon Dioxide Level 28 MMOL/L (21-32) Anion Gap 9 mmol/L (5-15) Blood Urea Nitrogen 27 mg/dL (7-18) H Creatinine 3.3 MG/DL (0.55-1.30) H Estimat Glomerular Filtration Rate 22.8 mL/min (>60) Glucose Level 81 MG/DL (74-106) Hemoglobin A1c 5.8 % (4.3-6.0) Uric Acid 6.2 MG/DL (2.6-7.2) Calcium Level 9.2 MG/DL (8.5-10.1) Phosphorus Level 3.8 MG/DL (2.5-4.9) Magnesium Level 2.4 MG/DL (1.8-2.4) Total Bilirubin 0.9 MG/DL (0.2-1.0) Gamma Glutamyl Transpeptidase 72 U/L (5-85) Aspartate Amino Transf (AST/SGOT) 12 U/L (15-37) L Alanine Aminotransferase (ALT/SGPT) 32 U/L (12-78) Alkaline Phosphatase 102 U/L (46-116) Total Creatine Kinase 52 U/L (26-308) Troponin I 0.000 ng/mL (0.000-0.056) C-Reactive Protein, Quantitative 6.4 mg/dL (0.00-0.90) H Pro-B-Type Natriuretic Peptide 112 pg/mL (0-125) Total Protein 7.4 G/DL (6.4-8.2) Albumin 3.3 G/DL (3.4-5.0) L Globulin 4.1 g/dL Albumin/Globulin Ratio 0.8 (1.0-2.7) L Lipase 66 U/L (73-393) L Thyroid Stimulating Hormone (TSH) 1.044 uiU/mL (0.358-3.740) Random Vancomycin Level 20.5 ug/mL Arterial Blood pH 7.400 (7.350-7.450) Arterial Blood Partial Pressure CO2 44.8 mmHg (35.0-45.0) Arterial Blood Partial Pressure O2 165.8 mmHg (75.0-100.0) H Arterial Blood HCO3 27.7 mmol/L (22.0-26.0) H Arterial Blood Oxygen Saturation 98.8 % (92.0-98.0) H Arterial Blood Base Excess 2.6 Joseluis Test Positive Demetrius Andrade MD Mar 04, 2018 11:08
[2018-03-04 12:00] VITALS: BP 122/77
--- NOTE | 2018-03-04 14:58 | General Progress Note ---
Assessment/Plan Problem List: (1) Chronic respiratory failure ICD Codes: J96.10 - Chronic respiratory failure, unspecified whether with hypoxia or hypercapnia SNOMED: 80168322 (2) Pneumonia ICD Codes: J18.9 - Pneumonia, unspecified organism SNOMED: 795613523 (3) HTN (hypertension) ICD Codes: I10 - Essential (primary) hypertension SNOMED: 84522378 (4) COPD (chronic obstructive pulmonary disease) ICD Codes: J44.9 - Chronic obstructive pulmonary disease, unspecified SNOMED: 13319750 (5) Renal failure ICD Codes: N19 - Unspecified kidney failure SNOMED: 43204871 Assessment/Plan vent abx bp bs control neph eval cbc bmp am Subjective Constitutional: Reports: weakness Allergies: Coded Allergies: No Known Allergies (Unverified , 06/17/16) All Systems: reviewed and negative except above Subjective trach vent awake Objective Last 24 Hour Vital Signs Date Time Temp Pulse Resp B/P (MAP) Pulse Ox O2 Delivery O2 Flow Rate FiO2 03/04/18 13:24 86 03/04/18 12:59 84 21 30 03/04/18 12:02 Mechanical Ventilator 03/04/18 12:00 98.1 88 18 122/77 (92) 100 98.1 03/04/18 12:00 40 03/04/18 10:40 87 18 40 03/04/18 09:32 88 18 100 Mechanical Ventilator 40 03/04/18 09:32 40 03/04/18 09:24 86 18 100 Mechanical Ventilator 40 03/04/18 09:22 86 18 40 03/04/18 09:11 103 03/04/18 08:00 40 03/04/18 08:00 Mechanical Ventilator 03/04/18 08:00 98.3 93 18 108/71 (83) 100 98.3 03/04/18 06:33 84 18 40 03/04/18 04:54 87 18 40 03/04/18 04:00 82 03/04/18 04:00 97.5 90 18 107/75 (86) 100 97.5 03/04/18 04:00 40 03/04/18 04:00 Mechanical Ventilator 03/04/18 03:06 84 22 98 Mechanical Ventilator 40 03/04/18 03:05 83 18 40 03/04/18 01:14 89 18 40 03/04/18 00:00 Mechanical Ventilator 03/04/18 00:00 97.8 87 18 112/82 (92) 100 97.8 03/04/18 00:00 40 03/04/18 00:00 79 03/03/18 23:09 94 20 100 Mechanical Ventilator 40 03/03/18 23:08 40 03/03/18 22:26 85 19 40 03/03/18 22:26 85 22 99 Mechanical Ventilator 40 03/03/18 22:24 85 18 Mechanical Ventilator 40 03/03/18 21:02 92 18 40 03/03/18 20:00 40 03/03/18 20:00 Mechanical Ventilator 03/03/18 20:00 97.7 97 18 116/80 (92) 100 97.7 03/03/18 20:00 98 03/03/18 19:54 95 20 100 Mechanical Ventilator 40 03/03/18 19:53 40 03/03/18 19:44 96 22 99 Mechanical Ventilator 40 03/03/18 19:43 93 19 40 03/03/18 16:41 92 19 40 03/03/18 16:00 40 03/03/18 16:00 95 03/03/18 16:00 97.7 100 20 103/72 (82) 100 97.7 03/03/18 16:00 Mechanical Ventilator Intake and Output 03/03/18 03/04/18 19:00 07:00 Intake Total 682.5 ml 250 ml Output Total 450 ml Balance 682.5 ml -200 ml Intake Oral 600 ml 250 ml IV Total 82.5 ml Output Urine Total 450 ml # Voids 200 Laboratory Tests 03/03/18 17:07: Urine Random Sodium 33 03/04/18 03:45: Urine Eosinophils None seen 03/04/18 06:35: White Blood Count 6.4, Red Blood Count 4.06L, Hemoglobin 11.5L, Hematocrit 35.9L , Mean Corpuscular Volume 88, Mean Corpuscular Hemoglobin 28.2, Mean Corpuscular Hemoglobin Concent 32.0, Red Cell Distribution Width 11.9, Platelet Count 252, Mean Platelet Volume 7.0, Neutrophils (%) (Auto) 57.1, Lymphocytes (% ) (Auto) 19.4L, Monocytes (%) (Auto) 9.0, Eosinophils (%) (Auto) 12.9H, Basophils (%) (Auto) 1.7, Erythrocyte Sedimentation Rate 61H, Sodium Level 143, Potassium Level 3.5, Chloride Level 106, Carbon Dioxide Level 28, Anion Gap 9, Blood Urea Nitrogen 27H, Creatinine 3.3H, Estimat Glomerular Filtration Rate 22.8, Glucose Level 81, Hemoglobin A1c 5.8, Uric Acid 6.2, Calcium Level 9.2, Phosphorus Level 3.8, Magnesium Level 2.4, Total Bilirubin 0.9, Gamma Glutamyl Transpeptidase 72, Aspartate Amino Transf (AST/SGOT) 12L, Alanine Aminotransferase (ALT/SGPT) 32, Alkaline Phosphatase 102, Total Creatine Kinase 52, Troponin I 0.000, C-Reactive Protein, Quantitative 6.4H, Pro-B-Type Natriuretic Peptide 112, Total Protein 7.4, Albumin 3.3L, Globulin 4.1, Albumin/ Globulin Ratio 0.8L, Lipase 66L, Thyroid Stimulating Hormone (TSH) 1.044, Random Vancomycin Level 20.5 03/04/18 09:50: Arterial Blood pH 7.400, Arterial Blood Partial Pressure CO2 44.8, Arterial Blood Partial Pressure O2 165.8H, Arterial Blood HCO3 27.7H, Arterial Blood Oxygen Saturation 98.8H, Arterial Blood Base Excess 2.6, Joseluis Test Positive Height (Feet): 5 Height (Inches): 4.00 Weight (Pounds): 179 General Appearance: lethargic EENT: normal ENT inspection Neck: normal alignment Cardiovascular: normal peripheral pulses, normal rate, regular rhythm Respiratory/Chest: chest wall non-tender, lungs clear, normal breath sounds Abdomen: normal bowel sounds, non tender, soft Extremities: normal inspection Edema: no edema noted Arm (L), no edema noted Arm (R), no edema noted Leg (L), no edema noted Leg (R), no edema noted Pedal (L), no edema noted Pedal (R), no edema noted Generalized Neurologic: responsive, motor weakness Skin: normal pigmentation, warm/dry Elan Petersen DO Mar 04, 2018 14:58
--- NOTE | 2018-03-04 15:38 | Cardiology Report ---
APPROVED REPORT EXAM: Two-dimensional and M-mode echocardiogram with Doppler and color Doppler. INDICATION Congestive Heart Failure M-Mode DIMENSIONS IVSd0.9 (0.7-1.1cm)Left Atrium (MM)2.9 (1.6-4.0cm) LVDd4.6 (3.5-5.6cm)Aortic Root4.0 (2.0-3.7cm) PWd1.3 (0.7-1.1cm)Aortic Cusp Exc.1.7 (1.5-2.0cm) IVSs1.4 cm LVDs3.2 (2.5-4.0cm) PWs1.9 cm Normal left ventricular chamber size, systolic function and wall motion to extent visualized. Left ventricular ejection fraction estimated to be 65 %. No evidence of left ventricular hypertrophy. No evidence of pericardial effusion. All other cardiac chamber sizes are within normal limits. Focal aortic valve sclerosis with adequate cusp excursion. Thickened mitral valve leaflets with normal excursion. Mitral annulus and aortic root calcification. Pulmonic valve not well visualized. Normal tricuspid valve structure. IVC at 1.8 cm with physiologic collapse . A color flow and spectral Doppler study was performed and revealed: No aortic regurgitation. Trace mitral regurgitation. Normal left ventricular diastolic function. Trace tricuspid regurgitation. Tricuspid systolic velocities suggests peak right ventricular systolic pressure of 27 mmHg
--- NOTE | 2018-03-04 15:50 | Infectious Diseases Prog Note ---
Assessment/Plan Assessment/Plan Probable PNA -CT chest: Consolidation and volume loss within the posterior superior segment right upper lobe, consistent with pneumonia. Review of prior imaging studies, however, indicates more extensive disease was present previously, so this probably represents residual from previous acute episodes, although it could represent recurrent acute disease. Cystic space within the apex of the right lower lobe, evident also on 11/14/2017, may reflect residua of a previous lung abscess, versus a bulla. Previously demonstrated left lung disease is largely resolved, with only minimal scarring at the left lung base. Diffuse hyperinflation, consistent with COPD changes -sp cx MDR PsA (S genta, Colistin/polymixin B),S. 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 Appropriate tracheostomy position. No evidence of radiopaque foreign body ORI, worsneing -supratherapeutic vanco levels; vanco d/c 03/02 DM HTN asthma/COPD interstitial PNA Colon mass s/p hemicolectomy chronic resp failure trach/vent dependant pHTN RLE DVT pulmonary nodules SNF resident Plan: -Continue INH Colistin #2/10 for MDR PsA in sputum cx -03/03 SP Zosyn d# 6 -03/02 SP IV Vanco #5, azithromycin # 5 -7/9 SP IV Vancomycin # 14 ( MRSA PNA), Levaquin #10 -01/11 SP Ceftazidime #7 - Sp Meropenem abx #4 -12/30 SP Levaquin x1, Zosyn #1 -f/u Blcx -Monitor CBC/CMP, temperatures -aspiration precautions -Monitor CBC/BMP, temperatures -trach care -wound care/prevention per hospital protocol Discussed with RN Subjective Allergies: Coded Allergies: No Known Allergies (Unverified , 06/17/16) Subjective afebrile no leukcoytosis Objective Vital Signs Last 24 Hour Vital Signs Date Time Temp Pulse Resp B/P (MAP) Pulse Ox O2 Delivery O2 Flow Rate FiO2 03/04/18 15:25 96 19 30 03/04/18 13:24 86 03/04/18 12:59 84 21 30 03/04/18 12:02 Mechanical Ventilator 03/04/18 12:00 98.1 88 18 122/77 (92) 100 98.1 03/04/18 12:00 40 03/04/18 10:40 87 18 40 03/04/18 09:32 88 18 100 Mechanical Ventilator 40 03/04/18 09:32 40 03/04/18 09:24 86 18 100 Mechanical Ventilator 40 03/04/18 09:22 86 18 40 03/04/18 09:11 103 03/04/18 08:00 40 03/04/18 08:00 Mechanical Ventilator 03/04/18 08:00 98.3 93 18 108/71 (83) 100 98.3 03/04/18 06:33 84 18 40 03/04/18 04:54 87 18 40 03/04/18 04:00 82 03/04/18 04:00 97.5 90 18 107/75 (86) 100 97.5 03/04/18 04:00 40 03/04/18 04:00 Mechanical Ventilator 03/04/18 03:06 84 22 98 Mechanical Ventilator 40 03/04/18 03:05 83 18 40 03/04/18 01:14 89 18 40 03/04/18 00:00 Mechanical Ventilator 03/04/18 00:00 97.8 87 18 112/82 (92) 100 97.8 03/04/18 00:00 40 03/04/18 00:00 79 03/03/18 23:09 94 20 100 Mechanical Ventilator 40 03/03/18 23:08 40 03/03/18 22:26 85 19 40 03/03/18 22:26 85 22 99 Mechanical Ventilator 40 03/03/18 22:24 85 18 Mechanical Ventilator 40 03/03/18 21:02 92 18 40 03/03/18 20:00 40 03/03/18 20:00 Mechanical Ventilator 03/03/18 20:00 97.7 97 18 116/80 (92) 100 97.7 03/03/18 20:00 98 03/03/18 19:54 95 20 100 Mechanical Ventilator 40 03/03/18 19:53 40 03/03/18 19:44 96 22 99 Mechanical Ventilator 40 03/03/18 19:43 93 19 40 03/03/18 16:41 92 19 40 03/03/18 16:00 40 03/03/18 16:00 95 03/03/18 16:00 97.7 100 20 103/72 (82) 100 97.7 03/03/18 16:00 Mechanical Ventilator Height (Feet): 5 Height (Inches): 4.00 Weight (Pounds): 179 Objective Lines, tubes and drains: peripheral HEENT: normocephalic, atraumatic Neck: non-tender, normal alignment Respiratory/Chest: chest wall non-tender Cardiovascular/Chest: normal rate Abdomen: normal bowel sounds, non tender Extremities: normal range of motion Laboratory Tests Test 03/03/18 17:07 03/04/18 03:45 03/04/18 06:35 03/04/18 09:50 Urine Random Sodium 33 mmol/L (20-110) Urine Eosinophils None seen (NONE SEEN) White Blood Count 6.4 K/UL (4.8-10.8) Red Blood Count 4.06 M/UL (4.70-6.10) L Hemoglobin 11.5 G/DL (14.2-18.0) L Hematocrit 35.9 % (42.0-52.0) L Mean Corpuscular Volume 88 FL (80-99) Mean Corpuscular Hemoglobin 28.2 PG (27.0-31.0) Mean Corpuscular Hemoglobin Concent 32.0 G/DL (32.0-36.0) Red Cell Distribution Width 11.9 % (11.6-14.8) Platelet Count 252 K/UL (150-450) Mean Platelet Volume 7.0 FL (6.5-10.1) Neutrophils (%) (Auto) 57.1 % (45.0-75.0) Lymphocytes (%) (Auto) 19.4 % (20.0-45.0) L Monocytes (%) (Auto) 9.0 % (1.0-10.0) Eosinophils (%) (Auto) 12.9 % (0.0-3.0) H Basophils (%) (Auto) 1.7 % (0.0-2.0) Erythrocyte Sedimentation Rate 61 MM/HR (0-20) H Sodium Level 143 MMOL/L (136-145) Potassium Level 3.5 MMOL/L (3.5-5.1) Chloride Level 106 MMOL/L (98-107) Carbon Dioxide Level 28 MMOL/L (21-32) Anion Gap 9 mmol/L (5-15) Blood Urea Nitrogen 27 mg/dL (7-18) H Creatinine 3.3 MG/DL (0.55-1.30) H Estimat Glomerular Filtration Rate 22.8 mL/min (>60) Glucose Level 81 MG/DL (74-106) Hemoglobin A1c 5.8 % (4.3-6.0) Uric Acid 6.2 MG/DL (2.6-7.2) Calcium Level 9.2 MG/DL (8.5-10.1) Phosphorus Level 3.8 MG/DL (2.5-4.9) Magnesium Level 2.4 MG/DL (1.8-2.4) Total Bilirubin 0.9 MG/DL (0.2-1.0) Gamma Glutamyl Transpeptidase 72 U/L (5-85) Aspartate Amino Transf (AST/SGOT) 12 U/L (15-37) L Alanine Aminotransferase (ALT/SGPT) 32 U/L (12-78) Alkaline Phosphatase 102 U/L (46-116) Total Creatine Kinase 52 U/L (26-308) Troponin I 0.000 ng/mL (0.000-0.056) C-Reactive Protein, Quantitative 6.4 mg/dL (0.00-0.90) H Pro-B-Type Natriuretic Peptide 112 pg/mL (0-125) Total Protein 7.4 G/DL (6.4-8.2) Albumin 3.3 G/DL (3.4-5.0) L Globulin 4.1 g/dL Albumin/Globulin Ratio 0.8 (1.0-2.7) L Lipase 66 U/L (73-393) L Thyroid Stimulating Hormone (TSH) 1.044 uiU/mL (0.358-3.740) Random Vancomycin Level 20.5 ug/mL Arterial Blood pH 7.400 (7.350-7.450) Arterial Blood Partial Pressure CO2 44.8 mmHg (35.0-45.0) Arterial Blood Partial Pressure O2 165.8 mmHg (75.0-100.0) H Arterial Blood HCO3 27.7 mmol/L (22.0-26.0) H Arterial Blood Oxygen Saturation 98.8 % (92.0-98.0) H Arterial Blood Base Excess 2.6 Joseluis Test Positive Current Medications Medications (Trade) Dose Ordered Sig/Shraddha Route PRN Reason Start Time Stop Time Status Last Admin Dose Admin Acetaminophen (Tylenol) 650 mg Q4H PRN ORAL FEVER 02/26/18 20:45 03/28/18 20:44 Colistimethate Sodium (Colistin *inhalation use only*) 150 mg Q12HR@10,22 INH 03/03/18 22:00 03/10/18 21:59 03/04/18 09:24 Dextrose (Dextrose 50%) 25 ml STAT PRN IV Hypoglycemia 02/26/18 20:45 03/28/18 20:44 Dextrose (Dextrose 50%) 50 ml STAT PRN IV Hypoglycemia 02/26/18 21:45 03/28/18 21:44 Heparin Sodium (Porcine) (Heparin 5000 units/ml) 5,000 units EVERY 12 HOURS SUBQ 02/26/18 21:00 03/28/18 20:59 03/04/18 08:45 Lidocaine (Xylocaine 1% MPF 5ml) 10 ml Q4H PRN HHN cough 03/01/18 12:35 03/31/18 12:34 03/04/18 03:06 Lorazepam (Ativan 2mg/ml 1ml) 2 mg Q2H PRN IV For Anxiety 02/26/18 21:30 03/05/18 21:29 Morphine Sulfate (Morphine Sulfate) 4 mg Q4H PRN IVP Severe Pain (Pain Scale 7-10) 02/26/18 21:30 03/05/18 21:29 03/04/18 15:39 Ondansetron HCl (Zofran) 4 mg Q6H PRN IVP Nausea & Vomiting 02/26/18 21:30 03/28/18 21:29 Pantoprazole (Protonix) 40 mg DAILY IV 02/27/18 09:00 03/29/18 08:59 03/04/18 08:42 Polyethylene Glycol (Miralax) 17 gm DAILYPRN PRN ORAL Constipation 02/26/18 21:30 03/28/18 21:29 Promethazine HCl (Phenergan Plain) 6.25 mg Q6H PRN ORAL For Cough 02/26/18 21:30 03/28/18 21:29 03/04/18 04:24 Sodium Chloride 1,000 ml @ 100 mls/hr Q10H IV 03/04/18 09:30 03/04/18 19:29 03/04/18 11:00 Tianna Jolley M.D. Mar 04, 2018 15:50
[2018-03-04 16:00] VITALS: BP 112/77
[2018-03-04] MEDS: Albuterol/Ipratropium 3ml neb HHN PRN (16:21)
--- NOTE | 2018-03-04 16:31 | Cardiology Report ---
APPROVED REPORT EKG Measurement Heart [id number] Normal sinus rhythm Normal ECG
[2018-03-04 20:00] VITALS: BP 124/71
[2018-03-05] VITALS: BP 107/76
[2018-03-05] MEDS: Albuterol/Ipratropium 3ml neb HHN PRN ×2 (03:02→16:53)
[2018-03-05 04:00] VITALS: BP 110/76
[2018-03-05] MEDS: Morphine Sulfate 4mg/ml Inj (IV USE ONLY) IVP PRN ×3 (04:15→17:59)
[2018-03-05 06:53] LABS: BASOPHILS % (AUTO) 1.3 % (0.0-2.0); EOSINOPHILS % (AUTO) 10.6 % (0.0-3.0); HEMATOCRIT 31.1 % (42.0-52.0); HEMOGLOBIN 10.2 G/DL (14.2-18.0); LYMPHOCYTES % (AUTO) 20.1 % (20.0-45.0); MEAN CORPUSCULAR VOLUME 88 FL (80-99); MONOCYTES % (AUTO) 7.5 % (1.0-10.0); NEUTROPHILS % (AUTO) 60.7 % (45.0-75.0); PLATELET COUNT 231 K/UL (150-450); RED BLOOD COUNT 3.54 M/UL (4.70-6.10); WHITE BLOOD COUNT 6.7 K/UL (4.8-10.8)
[2018-03-05 07:27] LABS: ALANINE AMINOTRANSFERASE 21 U/L (12-78); ALBUMIN 3.3 G/DL (3.4-5.0); ALBUMIN/GLOBULIN RATIO 0.8 (1.0-2.7); ALKALINE PHOSPHATASE 97 U/L (46-116); ANION GAP 11 mmol/L (5-15); ASPARTATE AMINO TRANSFERASE 10 U/L (15-37); BILIRUBIN,TOTAL 0.8 MG/DL (0.2-1.0); BLOOD UREA NITROGEN 26 mg/dL (7-18); CALCIUM 9.7 MG/DL (8.5-10.1); CARBON DIOXIDE 25 MMOL/L (21-32); CHLORIDE 106 MMOL/L (98-107); CREATININE 2.8 MG/DL (0.55-1.30); PHOSPHORUS 2.6 MG/DL (2.5-4.9); POTASSIUM 3.4 MMOL/L (3.5-5.1); SODIUM 142 MMOL/L (136-145)
[2018-03-05 08:00] VITALS: BP 132/84
[2018-03-05] MEDS: Pantoprazole Inj IV SCH (08:02)
[2018-03-05] MEDS: Promethazine Plain 6.25mg/5ml ORAL PRN (08:03)
[2018-03-05] MEDS: Heparin 5000 units/ml inj SUBQ SCH ×2 (08:05→20:29)
[2018-03-05] MEDS ORDERED: Milk of Magnesia 30ml Ud ORAL PRN (09:30)
[2018-03-05] MEDS: Colistin for inhalation INH SCH ×2 (10:28→21:26)
--- NOTE | 2018-03-05 10:45 | Pulmonolgy Critical Care Note ---
Critical Care - Asmt/Plan Problems: (1) Acute renal failure (ARF) (2) Acute and chronic respiratory failure (3) Sepsis (4) Nosocomial pneumonia (5) HTN (hypertension) (6) Stridor (7) Hypertension Respiratory: monitor respiratory rate, adjust FIO2 Renal: F/U I&O, keep IV fluid Infectious Disease: check cultures Gastrointestinal: continue feedings/current rate Endocrine: monitor blood sugar, continue sliding scale insulin Hematologic: monitor H/H, transfuse if hgb<8.5 Neurologic: PRN Ativan, keep patient comfortable Affect: PRN ativan Prophylaxis: Protonix Time Spent (Minutes): 40 Notes Reviewed: cardio, renal 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, consultants, patient case managersales strategy manager - Objective Last 24 Hour Vital Signs Date Time Temp Pulse Resp B/P (MAP) Pulse Ox O2 Delivery O2 Flow Rate FiO2 03/05/18 10:28 86 19 99 Mechanical Ventilator 30 03/05/18 09:28 82 18 30 03/05/18 09:15 94 03/05/18 08:00 98.1 92 8 132/84 (100) 100 98.1 03/05/18 08:00 40 03/05/18 08:00 Mechanical Ventilator 03/05/18 07:06 101 20 30 03/05/18 05:26 69 18 30 03/05/18 04:45 97.7 03/05/18 04:15 97.7 03/05/18 04:00 Mechanical Ventilator 03/05/18 04:00 40 03/05/18 04:00 98.0 77 20 110/76 (87) 100 98.0 03/05/18 04:00 77 03/05/18 03:04 82 22 30 03/05/18 03:02 30 03/05/18 03:01 82 22 98 Mechanical Ventilator 30 03/05/18 01:22 76 18 30 03/05/18 00:00 Mechanical Ventilator 03/05/18 00:00 97.7 74 20 107/76 (86) 100 97.7 03/04/18 23:03 78 18 30 03/04/18 21:44 97.7 03/04/18 21:30 90 18 100 Mechanical Ventilator 30 03/04/18 21:14 30 03/04/18 21:14 86 18 100 Mechanical Ventilator 30 03/04/18 21:13 86 18 30 03/04/18 21:00 Mechanical Ventilator 03/04/18 20:00 40 03/04/18 20:00 97.7 74 20 124/71 (88) 100 97.7 03/04/18 20:00 Mechanical Ventilator 03/04/18 20:00 74 03/04/18 19:12 94 18 30 03/04/18 16:58 40 03/04/18 16:58 88 20 100 Mechanical Ventilator 40 03/04/18 16:56 97 22 30 03/04/18 16:21 84 19 98 Mechanical Ventilator 40 03/04/18 16:00 40 03/04/18 16:00 89 03/04/18 16:00 Mechanical Ventilator 03/04/18 16:00 98.2 97 20 112/77 (89) 100 98.2 03/04/18 15:25 96 19 30 03/04/18 13:24 86 03/04/18 12:59 84 21 30 03/04/18 12:02 Mechanical Ventilator 03/04/18 12:00 98.1 88 18 122/77 (92) 100 98.1 03/04/18 12:00 40 Status: awake Condition: critical Neck: full ROM Lungs: clear Heart: HR/BP stable Abdomen: soft, feeding tube Extremities: no C/C/E Decubiti: location Critical Care - Subjective ROS Limited/Unobtainable: No Condition: critical EKG Rhythm: Sinus Rhythm FI02: 30 Vent Support Breath Rate: 18 Vent Support Mode: AC Vent Tidal Volume: 700 Sputum Amount: Moderate PEEP: 5.0 PIP: 38 I&O: Intake and Output 03/04/18 03/05/18 19:00 07:00 Intake Total 1000 ml Output Total 600 ml 450 ml Balance 400 ml -450 ml Intake Oral 200 ml IV Total 800 ml Output Urine Total 600 ml 450 ml Labs: Laboratory Tests Test 03/05/18 04:00 03/05/18 05:16 Urine Eosinophils None seen (NONE SEEN) White Blood Count 6.7 K/UL (4.8-10.8) Red Blood Count 3.54 M/UL (4.70-6.10) L Hemoglobin 10.2 G/DL (14.2-18.0) L Hematocrit 31.1 % (42.0-52.0) L Mean Corpuscular Volume 88 FL (80-99) Mean Corpuscular Hemoglobin 28.9 PG (27.0-31.0) Mean Corpuscular Hemoglobin Concent 33.0 G/DL (32.0-36.0) Red Cell Distribution Width 12.0 % (11.6-14.8) Platelet Count 231 K/UL (150-450) Mean Platelet Volume 6.4 FL (6.5-10.1) L Neutrophils (%) (Auto) 60.7 % (45.0-75.0) Lymphocytes (%) (Auto) 20.1 % (20.0-45.0) Monocytes (%) (Auto) 7.5 % (1.0-10.0) Eosinophils (%) (Auto) 10.6 % (0.0-3.0) H Basophils (%) (Auto) 1.3 % (0.0-2.0) Sodium Level 142 MMOL/L (136-145) Potassium Level 3.4 MMOL/L (3.5-5.1) L Chloride Level 106 MMOL/L (98-107) Carbon Dioxide Level 25 MMOL/L (21-32) Anion Gap 11 mmol/L (5-15) Blood Urea Nitrogen 26 mg/dL (7-18) H Creatinine 2.8 MG/DL (0.55-1.30) H Estimat Glomerular Filtration Rate 27.6 mL/min (>60) Glucose Level 79 MG/DL (74-106) Uric Acid 6.9 MG/DL (2.6-7.2) Calcium Level 9.7 MG/DL (8.5-10.1) Phosphorus Level 2.6 MG/DL (2.5-4.9) Magnesium Level 2.2 MG/DL (1.8-2.4) Total Bilirubin 0.8 MG/DL (0.2-1.0) Aspartate Amino Transf (AST/SGOT) 10 U/L (15-37) L Alanine Aminotransferase (ALT/SGPT) 21 U/L (12-78) Alkaline Phosphatase 97 U/L (46-116) C-Reactive Protein, Quantitative 5.3 mg/dL (0.00-0.90) H Pro-B-Type Natriuretic Peptide 196 pg/mL (0-125) H Total Protein 7.4 G/DL (6.4-8.2) Albumin 3.3 G/DL (3.4-5.0) L Globulin 4.1 g/dL Albumin/Globulin Ratio 0.8 (1.0-2.7) L Random Vancomycin Level 17.0 ug/mL Demetrius Andrade MD Mar 05, 2018 10:45
[2018-03-05 12:00] VITALS: BP 149/87
--- NOTE | 2018-03-05 13:03 | Infectious Diseases Prog Note ---
Assessment/Plan Assessment/Plan Probable PNA -CT chest: Consolidation and volume loss within the posterior superior segment right upper lobe, consistent with pneumonia. Review of prior imaging studies, however, indicates more extensive disease was present previously, so this probably represents residual from previous acute episodes, although it could represent recurrent acute disease. Cystic space within the apex of the right lower lobe, evident also on 11/14/2017, may reflect residua of a previous lung abscess, versus a bulla. Previously demonstrated left lung disease is largely resolved, with only minimal scarring at the left lung base. Diffuse hyperinflation, consistent with COPD changes -sp cx MDR PsA (S genta, Colistin/polymixin B),S. 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 Appropriate tracheostomy position. No evidence of radiopaque foreign body ORI, worsneing -supratherapeutic vanco levels; vanco d/c 03/02 DM HTN asthma/COPD interstitial PNA Colon mass s/p hemicolectomy chronic resp failure trach/vent dependant pHTN RLE DVT pulmonary nodules SNF resident Plan: -Continue INH Colistin #3/10 for MDR PsA in sputum cx -03/03 SP Zosyn d# 6 -03/02 SP IV Vanco #5, azithromycin # 5 -7/9 SP IV Vancomycin # 14 ( MRSA PNA), Levaquin #10 -01/11 SP Ceftazidime #7 - Sp Meropenem abx #4 -12/30 SP Levaquin x1, Zosyn #1 -f/u Blcx -Monitor CBC/CMP, temperatures -aspiration precautions -Monitor CBC/BMP, temperatures -trach care -wound care/prevention per hospital protocol Discussed with RN Subjective Allergies: Coded Allergies: No Known Allergies (Unverified , 06/17/16) Subjective afebrile no leukcoytosis Objective Vital Signs Last 24 Hour Vital Signs Date Time Temp Pulse Resp B/P (MAP) Pulse Ox O2 Delivery O2 Flow Rate FiO2 03/05/18 12:36 Mechanical Ventilator 03/05/18 12:00 40 03/05/18 12:00 90 03/05/18 12:00 98.4 113 18 149/87 (107) 100 98.4 03/05/18 10:50 87 20 30 03/05/18 10:38 89 20 99 Mechanical Ventilator 03/05/18 10:28 86 19 99 Mechanical Ventilator 30 03/05/18 09:28 82 18 30 03/05/18 09:15 94 03/05/18 08:00 98.1 92 18 132/84 (100) 100 98.1 03/05/18 08:00 40 03/05/18 08:00 Mechanical Ventilator 03/05/18 07:06 101 20 30 03/05/18 05:26 69 18 30 03/05/18 04:45 97.7 03/05/18 04:15 97.7 03/05/18 04:00 Mechanical Ventilator 03/05/18 04:00 40 03/05/18 04:00 98.0 77 20 110/76 (87) 100 98.0 03/05/18 04:00 77 03/05/18 03:04 82 22 30 03/05/18 03:02 30 03/05/18 03:01 82 22 98 Mechanical Ventilator 30 03/05/18 01:22 76 18 30 03/05/18 00:00 Mechanical Ventilator 03/05/18 00:00 97.7 74 20 107/76 (86) 100 97.7 03/04/18 23:03 78 18 30 03/04/18 21:44 97.7 03/04/18 21:30 90 18 100 Mechanical Ventilator 30 03/04/18 21:14 30 03/04/18 21:14 86 18 100 Mechanical Ventilator 30 03/04/18 21:13 86 18 30 03/04/18 21:00 Mechanical Ventilator 03/04/18 20:00 40 03/04/18 20:00 97.7 74 20 124/71 (88) 100 97.7 03/04/18 20:00 Mechanical Ventilator 03/04/18 20:00 74 03/04/18 19:12 94 18 30 03/04/18 16:58 40 03/04/18 16:58 88 20 100 Mechanical Ventilator 40 03/04/18 16:56 97 22 30 03/04/18 16:21 84 19 98 Mechanical Ventilator 40 03/04/18 16:00 40 03/04/18 16:00 89 03/04/18 16:00 Mechanical Ventilator 03/04/18 16:00 98.2 97 20 112/77 (89) 100 98.2 03/04/18 15:25 96 19 30 03/04/18 13:24 86 Height (Feet): 5 Height (Inches): 4.00 Weight (Pounds): 180 Objective Lines, tubes and drains: peripheral HEENT: normocephalic, atraumatic Neck: non-tender, normal alignment Respiratory/Chest: chest wall non-tender Cardiovascular/Chest: normal rate Abdomen: normal bowel sounds, non tender Extremities: normal range of motion Laboratory Tests Test 03/05/18 04:00 03/05/18 05:16 Urine Eosinophils None seen (NONE SEEN) White Blood Count 6.7 K/UL (4.8-10.8) Red Blood Count 3.54 M/UL (4.70-6.10) L Hemoglobin 10.2 G/DL (14.2-18.0) L Hematocrit 31.1 % (42.0-52.0) L Mean Corpuscular Volume 88 FL (80-99) Mean Corpuscular Hemoglobin 28.9 PG (27.0-31.0) Mean Corpuscular Hemoglobin Concent 33.0 G/DL (32.0-36.0) Red Cell Distribution Width 12.0 % (11.6-14.8) Platelet Count 231 K/UL (150-450) Mean Platelet Volume 6.4 FL (6.5-10.1) L Neutrophils (%) (Auto) 60.7 % (45.0-75.0) Lymphocytes (%) (Auto) 20.1 % (20.0-45.0) Monocytes (%) (Auto) 7.5 % (1.0-10.0) Eosinophils (%) (Auto) 10.6 % (0.0-3.0) H Basophils (%) (Auto) 1.3 % (0.0-2.0) Sodium Level 142 MMOL/L (136-145) Potassium Level 3.4 MMOL/L (3.5-5.1) L Chloride Level 106 MMOL/L (98-107) Carbon Dioxide Level 25 MMOL/L (21-32) Anion Gap 11 mmol/L (5-15) Blood Urea Nitrogen 26 mg/dL (7-18) H Creatinine 2.8 MG/DL (0.55-1.30) H Estimat Glomerular Filtration Rate 27.6 mL/min (>60) Glucose Level 79 MG/DL (74-106) Uric Acid 6.9 MG/DL (2.6-7.2) Calcium Level 9.7 MG/DL (8.5-10.1) Phosphorus Level 2.6 MG/DL (2.5-4.9) Magnesium Level 2.2 MG/DL (1.8-2.4) Total Bilirubin 0.8 MG/DL (0.2-1.0) Aspartate Amino Transf (AST/SGOT) 10 U/L (15-37) L Alanine Aminotransferase (ALT/SGPT) 21 U/L (12-78) Alkaline Phosphatase 97 U/L (46-116) C-Reactive Protein, Quantitative 5.3 mg/dL (0.00-0.90) H Pro-B-Type Natriuretic Peptide 196 pg/mL (0-125) H Total Protein 7.4 G/DL (6.4-8.2) Albumin 3.3 G/DL (3.4-5.0) L Globulin 4.1 g/dL Albumin/Globulin Ratio 0.8 (1.0-2.7) L Random Vancomycin Level 17.0 ug/mL Current Medications Medications (Trade) Dose Ordered Sig/Shraddha Route PRN Reason Start Time Stop Time Status Last Admin Dose Admin Acetaminophen (Tylenol) 650 mg Q4H PRN ORAL FEVER 02/26/18 20:45 03/28/18 20:44 Albuterol/ Ipratropium (Albuterol/ Ipratropium) 3 ml Q4H PRN HHN Shortness of Breath 03/04/18 16:15 03/09/18 16:14 03/05/18 03:02 Colistimethate Sodium (Colistin *inhalation use only*) 150 mg Q12HR@10,22 INH 03/03/18 22:00 03/10/18 21:59 03/05/18 10:28 Dextrose (Dextrose 50%) 25 ml STAT PRN IV Hypoglycemia 02/26/18 20:45 03/28/18 20:44 Dextrose (Dextrose 50%) 50 ml STAT PRN IV Hypoglycemia 02/26/18 21:45 03/28/18 21:44 Heparin Sodium (Porcine) (Heparin 5000 units/ml) 5,000 units EVERY 12 HOURS SUBQ 02/26/18 21:00 03/28/18 20:59 03/05/18 08:05 Lidocaine (Xylocaine 1% MPF 5ml) 10 ml Q4H PRN HHN cough 03/01/18 12:35 03/31/18 12:34 03/04/18 03:06 Lorazepam (Ativan 2mg/ml 1ml) 2 mg Q2H PRN IV For Anxiety 02/26/18 21:30 03/05/18 21:29 Magnesium Hydroxide (Mom) 30 ml DAILYPRN PRN ORAL Constipation 03/05/18 09:30 04/04/18 09:29 Morphine Sulfate (Morphine Sulfate) 4 mg Q4H PRN IVP Severe Pain (Pain Scale 7-10) 02/26/18 21:30 03/05/18 21:29 03/05/18 10:02 Ondansetron HCl (Zofran) 4 mg Q6H PRN IVP Nausea & Vomiting 02/26/18 21:30 03/28/18 21:29 Pantoprazole (Protonix) 40 mg DAILY IV 02/27/18 09:00 03/29/18 08:59 03/05/18 08:02 Promethazine HCl (Phenergan Plain) 6.25 mg Q6H PRN ORAL For Cough 02/26/18 21:30 03/28/18 21:29 03/05/18 08:03 Tianna Jolley M.D. Mar 05, 2018 13:03
--- NOTE | 2018-03-05 14:08 | Diagnostic Imaging Report ---
APPROVED REPORT CPT Code: 78399 Present Symptoms Shortness of breath BILATERAL: Imaging reveals a patent deep venous system bilaterally. There is no evidence of thrombus within the femoral, popliteal or tibial segments. The greater saphenous veins are also within normal limits. Doppler indicates normal spontaneous flow within these segments.
--- NOTE | 2018-03-05 15:12 | General Progress Note ---
Assessment/Plan Problem List: (1) Chronic respiratory failure ICD Codes: J96.10 - Chronic respiratory failure, unspecified whether with hypoxia or hypercapnia SNOMED: 42663880 (2) Pneumonia ICD Codes: J18.9 - Pneumonia, unspecified organism SNOMED: 522618064 (3) HTN (hypertension) ICD Codes: I10 - Essential (primary) hypertension SNOMED: 67884848 (4) COPD (chronic obstructive pulmonary disease) ICD Codes: J44.9 - Chronic obstructive pulmonary disease, unspecified SNOMED: 06415581 (5) Renal failure ICD Codes: N19 - Unspecified kidney failure SNOMED: 41551404 Status: stable, progressing Assessment/Plan vent abx bp bs control neph eval cbc bmp am Subjective Constitutional: Reports: weakness Allergies: Coded Allergies: No Known Allergies (Unverified , 06/17/16) All Systems: reviewed and negative except above Subjective trach vent awake Objective Last 24 Hour Vital Signs Date Time Temp Pulse Resp B/P (MAP) Pulse Ox O2 Delivery O2 Flow Rate FiO2 03/05/18 15:00 84 22 30 03/05/18 13:11 91 20 30 03/05/18 12:36 Mechanical Ventilator 03/05/18 12:00 40 03/05/18 12:00 90 03/05/18 12:00 98.4 113 18 149/87 (107) 100 98.4 03/05/18 10:50 87 20 30 03/05/18 10:38 89 20 99 Mechanical Ventilator 03/05/18 10:28 86 19 99 Mechanical Ventilator 30 03/05/18 09:28 82 18 30 03/05/18 09:15 94 03/05/18 08:00 98.1 92 18 132/84 (100) 100 98.1 03/05/18 08:00 40 03/05/18 08:00 Mechanical Ventilator 03/05/18 07:06 101 20 30 03/05/18 05:26 69 18 30 03/05/18 04:45 97.7 03/05/18 04:15 97.7 03/05/18 04:00 Mechanical Ventilator 03/05/18 04:00 40 03/05/18 04:00 98.0 77 20 110/76 (87) 100 98.0 03/05/18 04:00 77 03/05/18 03:04 82 22 30 03/05/18 03:02 30 03/05/18 03:01 82 22 98 Mechanical Ventilator 30 03/05/18 01:22 76 18 30 03/05/18 00:00 Mechanical Ventilator 03/05/18 00:00 97.7 74 20 107/76 (86) 100 97.7 03/04/18 23:03 78 18 30 03/04/18 21:44 97.7 03/04/18 21:30 90 18 100 Mechanical Ventilator 30 03/04/18 21:14 30 03/04/18 21:14 86 18 100 Mechanical Ventilator 30 03/04/18 21:13 86 18 30 03/04/18 21:00 Mechanical Ventilator 03/04/18 20:00 40 03/04/18 20:00 97.7 74 20 124/71 (88) 100 97.7 03/04/18 20:00 Mechanical Ventilator 03/04/18 20:00 74 03/04/18 19:12 94 18 30 03/04/18 16:58 40 03/04/18 16:58 88 20 100 Mechanical Ventilator 40 03/04/18 16:56 97 22 30 03/04/18 16:21 84 19 98 Mechanical Ventilator 40 03/04/18 16:00 40 03/04/18 16:00 89 03/04/18 16:00 Mechanical Ventilator 03/04/18 16:00 98.2 97 20 112/77 (89) 100 98.2 03/04/18 15:25 96 19 30 Intake and Output 03/04/18 03/05/18 19:00 07:00 Intake Total 1000 ml Output Total 600 ml 450 ml Balance 400 ml -450 ml Intake Oral 200 ml IV Total 800 ml Output Urine Total 600 ml 450 ml Laboratory Tests 03/05/18 04:00: Urine Eosinophils None seen 03/05/18 05:16: White Blood Count 6.7, Red Blood Count 3.54L, Hemoglobin 10.2L, Hematocrit 31.1L , Mean Corpuscular Volume 88, Mean Corpuscular Hemoglobin 28.9, Mean Corpuscular Hemoglobin Concent 33.0, Red Cell Distribution Width 12.0, Platelet Count 231, Mean Platelet Volume 6.4L, Neutrophils (%) (Auto) 60.7, Lymphocytes ( %) (Auto) 20.1, Monocytes (%) (Auto) 7.5, Eosinophils (%) (Auto) 10.6H, Basophils (%) (Auto) 1.3, Sodium Level 142, Potassium Level 3.4L, Chloride Level 106, Carbon Dioxide Level 25, Anion Gap 11, Blood Urea Nitrogen 26H, Creatinine 2.8H, Estimat Glomerular Filtration Rate 27.6, Glucose Level 79, Uric Acid 6.9, Calcium Level 9.7, Phosphorus Level 2.6, Magnesium Level 2.2, Total Bilirubin 0.8, Aspartate Amino Transf (AST/SGOT) 10L, Alanine Aminotransferase (ALT/SGPT) 21, Alkaline Phosphatase 97, C-Reactive Protein, Quantitative 5.3H, Pro-B-Type Natriuretic Peptide 196H, Total Protein 7.4, Albumin 3.3L, Globulin 4.1, Albumin/Globulin Ratio 0.8L, Random Vancomycin Level 17.0 Height (Feet): 5 Height (Inches): 4.00 Weight (Pounds): 180 General Appearance: lethargic EENT: normal ENT inspection Neck: normal alignment Cardiovascular: normal peripheral pulses, normal rate, regular rhythm Respiratory/Chest: chest wall non-tender, decreased breath sounds Abdomen: normal bowel sounds, non tender, soft Extremities: normal inspection Edema: no edema noted Arm (L), no edema noted Arm (R), no edema noted Leg (L), no edema noted Leg (R), no edema noted Pedal (L), no edema noted Pedal (R), no edema noted Generalized Neurologic: motor weakness Skin: normal pigmentation, warm/dry Elan Petersen DO Mar 05, 2018 15:12
[2018-03-05 16:00] VITALS: BP 157/83
--- NOTE | 2018-03-05 16:52 | Nephrology Progress Note ---
Assessment/Plan Problem List: (1) Acute renal failure (ARF) (2) Acute and chronic respiratory failure Assessment Acute Renal failure Possible etiologies: Low BP Nephrotoxic drugs- High Vanco level- Cr leveling 3.3 today Other: Acute and chronic respiratory failure Sepsis Nosocomial pneumonia h/o HTN (hypertension) Emphysema of lung Plan Urine eosinophils- DC Norvasc and bp meds Bolus ALbumin and 1/2 NS monitor Vanco level down to 17 today 2D echo Pending Left ventricular ejection fraction estimated to be 65 % Kidney KARIN Negative- No [place] Monitor renal parameters ABG noted Objective Objective Last 24 Hour Vital Signs Date Time Temp Pulse Resp B/P (MAP) Pulse Ox O2 Delivery O2 Flow Rate FiO2 03/05/18 16:00 Mechanical Ventilator 03/05/18 16:00 40 03/05/18 16:00 99.3 78 18 157/83 (107) 100 99.3 03/05/18 15:00 84 22 30 03/05/18 13:11 91 20 30 03/05/18 12:36 Mechanical Ventilator 03/05/18 12:00 40 03/05/18 12:00 90 03/05/18 12:00 98.4 113 18 149/87 (107) 100 98.4 03/05/18 10:50 87 20 30 03/05/18 10:38 89 20 99 Mechanical Ventilator 03/05/18 10:28 86 19 99 Mechanical Ventilator 30 03/05/18 09:28 82 18 30 03/05/18 09:15 94 03/05/18 08:00 98.1 92 18 132/84 (100) 100 98.1 03/05/18 08:00 40 03/05/18 08:00 Mechanical Ventilator 03/05/18 07:06 101 20 30 03/05/18 05:26 69 18 30 03/05/18 04:45 97.7 03/05/18 04:15 97.7 03/05/18 04:00 Mechanical Ventilator 03/05/18 04:00 40 03/05/18 04:00 98.0 77 20 110/76 (87) 100 98.0 03/05/18 04:00 77 03/05/18 03:04 82 22 30 03/05/18 03:02 30 03/05/18 03:01 82 22 98 Mechanical Ventilator 30 03/05/18 01:22 76 18 30 03/05/18 00:00 Mechanical Ventilator 03/05/18 00:00 97.7 74 20 107/76 (86) 100 97.7 03/04/18 23:03 78 18 30 03/04/18 21:44 97.7 03/04/18 21:30 90 18 100 Mechanical Ventilator 30 03/04/18 21:14 30 03/04/18 21:14 86 18 100 Mechanical Ventilator 30 03/04/18 21:13 86 18 30 03/04/18 21:00 Mechanical Ventilator 03/04/18 20:00 40 03/04/18 20:00 97.7 74 20 124/71 (88) 100 97.7 03/04/18 20:00 Mechanical Ventilator 03/04/18 20:00 74 03/04/18 19:12 94 18 30 03/04/18 16:58 40 03/04/18 16:58 88 20 100 Mechanical Ventilator 40 03/04/18 16:56 97 22 30 Intake and Output 03/04/18 03/05/18 19:00 07:00 Intake Total 1000 ml Output Total 600 ml 450 ml Balance 400 ml -450 ml Intake Oral 200 ml IV Total 800 ml Output Urine Total 600 ml 450 ml Laboratory Tests 03/05/18 04:00: Urine Eosinophils None seen 03/05/18 05:16: White Blood Count 6.7, Red Blood Count 3.54L, Hemoglobin 10.2L, Hematocrit 31.1L , Mean Corpuscular Volume 88, Mean Corpuscular Hemoglobin 28.9, Mean Corpuscular Hemoglobin Concent 33.0, Red Cell Distribution Width 12.0, Platelet Count 231, Mean Platelet Volume 6.4L, Neutrophils (%) (Auto) 60.7, Lymphocytes ( %) (Auto) 20.1, Monocytes (%) (Auto) 7.5, Eosinophils (%) (Auto) 10.6H, Basophils (%) (Auto) 1.3, Sodium Level 142, Potassium Level 3.4L, Chloride Level 106, Carbon Dioxide Level 25, Anion Gap 11, Blood Urea Nitrogen 26H, Creatinine 2.8H, Estimat Glomerular Filtration Rate 27.6, Glucose Level 79, Uric Acid 6.9, Calcium Level 9.7, Phosphorus Level 2.6, Magnesium Level 2.2, Total Bilirubin 0.8, Aspartate Amino Transf (AST/SGOT) 10L, Alanine Aminotransferase (ALT/SGPT) 21, Alkaline Phosphatase 97, C-Reactive Protein, Quantitative 5.3H, Pro-B-Type Natriuretic Peptide 196H, Total Protein 7.4, Albumin 3.3L, Globulin 4.1, Albumin/Globulin Ratio 0.8L, Random Vancomycin Level 17.0 Height (Feet): 5 Height (Inches): 4.00 Weight (Pounds): 180 Tyler Srivastava MD Mar 05, 2018 16:52
[2018-03-05 20:00] VITALS: BP 114/73
[2018-03-06] VITALS: BP 138/69
[2018-03-06] MEDS: Promethazine Plain 6.25mg/5ml ORAL PRN (00:15)
[2018-03-06 04:00] VITALS: BP 110/77
[2018-03-06 06:48] LABS: BASOPHILS % (AUTO) 1.8 % (0.0-2.0); EOSINOPHILS % (AUTO) 8.2 % (0.0-3.0); HEMATOCRIT 32.1 % (42.0-52.0); HEMOGLOBIN 11.1 G/DL (14.2-18.0); LYMPHOCYTES % (AUTO) 22.6 % (20.0-45.0); MEAN CORPUSCULAR VOLUME 87 FL (80-99); NEUTROPHILS % (AUTO) 59.5 % (45.0-75.0); PLATELET COUNT 255 K/UL (150-450); RED BLOOD COUNT 3.68 M/UL (4.70-6.10); RED CELL DISTRIBUTION WIDTH 11.9 % (11.6-14.8); WHITE BLOOD COUNT 7.3 K/UL (4.8-10.8)
[2018-03-06 07:38] LABS: ALANINE AMINOTRANSFERASE 22 U/L (12-78); ALBUMIN 3.1 G/DL (3.4-5.0); ALBUMIN/GLOBULIN RATIO 0.7 (1.0-2.7); ALKALINE PHOSPHATASE 105 U/L (46-116); ANION GAP 7 mmol/L (5-15); ASPARTATE AMINO TRANSFERASE 11 U/L (15-37); BILIRUBIN,TOTAL 0.6 MG/DL (0.2-1.0); BLOOD UREA NITROGEN 20 mg/dL (7-18); CALCIUM 9.5 MG/DL (8.5-10.1); CARBON DIOXIDE 27 MMOL/L (21-32); CHLORIDE 107 MMOL/L (98-107); CREATINE KINASE 63 U/L (26-308); CREATININE 2.7 MG/DL (0.55-1.30); FERRITIN 197 NG/ML (8-388); GAMMA GLUTAMYL TRANSPEPTIDASE 65 U/L (5-85); PHOSPHORUS 3.3 MG/DL (2.5-4.9); POTASSIUM 3.5 MMOL/L (3.5-5.1); SODIUM 141 MMOL/L (136-145)
[2018-03-06 07:53] LABS: % IRON SATURATION 17 % (15-50); IRON 32 ug/dL (50-175); TOTAL IRON BINDING CAPACITY 186 ug/dL (250-450)
[2018-03-06 08:00] VITALS: BP 118/75
[2018-03-06] MEDS: Colistin for inhalation INH SCH ×2 (08:51→21:19)
--- NOTE | 2018-03-06 08:59 | Nephrology Progress Note ---
Assessment/Plan Problem List: (1) Acute renal failure (ARF) (2) Acute and chronic respiratory failure Assessment Acute Renal failure Possible etiologies: Low BP Nephrotoxic drugs- High Vanco level- Cr leveling 3.3 today Other: Acute and chronic respiratory failure Sepsis Nosocomial pneumonia h/o HTN (hypertension) Emphysema of lung Plan Urine eosinophils- DC Norvasc and bp meds Bolus ALbumin and 1/2 NS monitor Vanco level down to 17 today 2D echo Pending Left ventricular ejection fraction estimated to be 65 % Kidney KARIN Negative- No [place] Monitor renal parameters ABG noted Subjective ROS Limited/Unobtainable: No Constitutional: Reports: malaise Objective Objective Last 24 Hour Vital Signs Date Time Temp Pulse Resp B/P (MAP) Pulse Ox O2 Delivery O2 Flow Rate FiO2 03/06/18 08:53 92 18 30 03/06/18 08:00 89 03/06/18 07:15 97 18 30 03/06/18 05:11 69 20 30 03/06/18 04:00 97.5 73 18 110/77 (88) 100 97.5 03/06/18 04:00 79 03/06/18 04:00 40 03/06/18 04:00 Mechanical Ventilator 03/06/18 02:55 70 18 30 03/06/18 01:21 66 18 30 03/06/18 00:00 97.9 80 19 138/69 (92) 100 97.9 03/06/18 00:00 Mechanical Ventilator 03/06/18 00:00 40 03/06/18 00:00 68 03/05/18 23:03 68 19 30 03/05/18 21:41 78 19 99 Mechanical Ventilator 30 03/05/18 21:26 80 19 30 03/05/18 21:26 80 19 99 Mechanical Ventilator 30 03/05/18 20:00 40 03/05/18 20:00 Mechanical Ventilator 03/05/18 20:00 97.9 88 18 114/73 (87) 100 97.9 03/05/18 20:00 79 03/05/18 18:46 81 22 30 03/05/18 17:03 77 20 100 Mechanical Ventilator 30 03/05/18 16:53 72 20 100 Mechanical Ventilator 30 03/05/18 16:51 72 20 30 03/05/18 16:00 Mechanical Ventilator 03/05/18 16:00 40 03/05/18 16:00 69 03/05/18 16:00 99.3 78 18 157/83 (107) 100 99.3 03/05/18 15:00 84 22 30 03/05/18 13:11 91 20 30 03/05/18 12:36 Mechanical Ventilator 03/05/18 12:00 40 03/05/18 12:00 90 03/05/18 12:00 98.4 113 18 149/87 (107) 100 98.4 03/05/18 10:50 87 20 30 03/05/18 10:38 89 20 99 Mechanical Ventilator 03/05/18 10:28 86 19 99 Mechanical Ventilator 30 03/05/18 09:28 82 18 30 03/05/18 09:15 94 Intake and Output 03/05/18 03/06/18 19:00 07:00 Intake Total 450 ml 872 ml Output Total 800 ml 675 ml Balance -350 ml 197 ml Intake Oral 350 ml IV Total 100 ml 872 ml Output Urine Total 800 ml 675 ml # Bowel Movements 2 Laboratory Tests 03/06/18 03:30: Urine Eosinophils [Pending] 03/06/18 05:52: White Blood Count 7.3, Red Blood Count 3.68L, Hemoglobin 11.1L, Hematocrit 32.1L , Mean Corpuscular Volume 87, Mean Corpuscular Hemoglobin 30.1, Mean Corpuscular Hemoglobin Concent 34.5, Red Cell Distribution Width 11.9, Platelet Count 255, Mean Platelet Volume 6.6, Neutrophils (%) (Auto) 59.5, Lymphocytes (% ) (Auto) 22.6, Monocytes (%) (Auto) 8.0, Eosinophils (%) (Auto) 8.2H, Basophils (%) (Auto) 1.8, Sodium Level 141, Potassium Level 3.5, Chloride Level 107, Carbon Dioxide Level 27, Anion Gap 7, Blood Urea Nitrogen 20H, Creatinine 2.7H, Estimat Glomerular Filtration Rate 28.8, Glucose Level 86, Uric Acid 7.3H, Calcium Level 9.5, Phosphorus Level 3.3, Magnesium Level 2.4, Iron Level 32L, Total Iron Binding Capacity 186L, Percent Iron Saturation 17, Unsaturated Iron Binding 154, Ferritin 197, Total Bilirubin 0.6, Gamma Glutamyl Transpeptidase 65 , Aspartate Amino Transf (AST/SGOT) 11L, Alanine Aminotransferase (ALT/SGPT) 22 , Alkaline Phosphatase 105, Total Creatine Kinase 63, Troponin I 0.017, Pro-B- Type Natriuretic Peptide 429H, Total Protein 7.4, Albumin 3.1L, Globulin 4.3, Albumin/Globulin Ratio 0.7L, Vitamin B12 Level [Pending], Folate [Pending], Random Vancomycin Level 11.4 Height (Feet): 5 Height (Inches): 4.00 Weight (Pounds): 181 General Appearance: no apparent distress Cardiovascular: tachycardia Respiratory/Chest: decreased breath sounds Abdomen: soft Objective o change Tyler Srivastava MD Mar 06, 2018 08:59
[2018-03-06] MEDS: Pantoprazole Inj IV SCH (09:38)
[2018-03-06] MEDS: D5 1/2NS w/KCL 10meq 1,000 ML IV SCH ×2 (09:38→21:31)
[2018-03-06] MEDS: Morphine Sulfate 4mg/ml Inj (IV USE ONLY) IVP PRN ×3 (09:41→21:30)
[2018-03-06] MEDS: Heparin 5000 units/ml inj SUBQ SCH ×2 (10:11→21:31)
--- NOTE | 2018-03-06 10:12 | Pulmonolgy Critical Care Note ---
Critical Care - Asmt/Plan Problems: (1) Acute renal failure (ARF) (2) Acute and chronic respiratory failure (3) Sepsis (4) Nosocomial pneumonia (5) HTN (hypertension) (6) Stridor (7) Hypertension Respiratory: monitor respiratory rate, adjust FIO2, CXR Cardiac: continue to monitor HR/BP Renal: check electrolytes Infectious Disease: check cultures Gastrointestinal: continue feedings/current rate Endocrine: monitor blood sugar Hematologic: monitor H/H Neurologic: PRN Morphine, keep patient comfortable Affect: PRN ativan Prophylaxis: Protonix, Heparin Time Spent (Minutes): 40 Notes Reviewed: cardio 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, consultants Critical Care - Objective Last 24 Hour Vital Signs Date Time Temp Pulse Resp B/P (MAP) Pulse Ox O2 Delivery O2 Flow Rate FiO2 03/06/18 08:53 92 18 30 03/06/18 08:00 89 03/06/18 07:15 97 18 30 03/06/18 05:11 69 20 30 03/06/18 04:00 97.5 73 18 110/77 (88) 100 97.5 03/06/18 04:00 79 03/06/18 04:00 40 03/06/18 04:00 Mechanical Ventilator 03/06/18 02:55 70 18 30 03/06/18 01:21 66 18 30 03/06/18 00:00 97.9 80 19 138/69 (92) 100 97.9 03/06/18 00:00 Mechanical Ventilator 03/06/18 00:00 40 03/06/18 00:00 68 03/05/18 23:03 68 19 30 03/05/18 21:41 78 19 99 Mechanical Ventilator 30 03/05/18 21:26 80 19 30 03/05/18 21:26 80 19 99 Mechanical Ventilator 30 03/05/18 20:00 40 03/05/18 20:00 Mechanical Ventilator 03/05/18 20:00 97.9 88 18 114/73 (87) 100 97.9 03/05/18 20:00 79 03/05/18 18:46 81 22 30 03/05/18 17:03 77 20 100 Mechanical Ventilator 30 03/05/18 16:53 72 20 100 Mechanical Ventilator 30 03/05/18 16:51 72 20 30 03/05/18 16:00 Mechanical Ventilator 03/05/18 16:00 40 03/05/18 16:00 69 03/05/18 16:00 99.3 78 18 157/83 (107) 100 99.3 03/05/18 15:00 84 22 30 03/05/18 13:11 91 20 30 03/05/18 12:36 Mechanical Ventilator 03/05/18 12:00 40 03/05/18 12:00 90 03/05/18 12:00 98.4 113 18 149/87 (107) 100 98.4 03/05/18 10:50 87 20 30 03/05/18 10:38 89 20 99 Mechanical Ventilator 03/05/18 10:28 86 19 99 Mechanical Ventilator 30 Status: awake Condition: critical Neck: full ROM Lungs: chest wall tender Heart: HR/BP stable Abdomen: soft, non-tender Extremities: edema Critical Care - Subjective ROS Limited/Unobtainable: No Condition: critical FI02: 30 Vent Support Breath Rate: 18 Vent Support Mode: AC Vent Tidal Volume: 700 Sputum Amount: Small PEEP: 5.0 PIP: 34 I&O: Intake and Output 03/05/18 03/06/18 19:00 07:00 Intake Total 450 ml 872 ml Output Total 800 ml 675 ml Balance -350 ml 197 ml Intake Oral 350 ml IV Total 100 ml 872 ml Output Urine Total 800 ml 675 ml # Bowel Movements 2 Labs: Laboratory Tests Test 03/06/18 03:30 03/06/18 05:52 Urine Eosinophils Pending White Blood Count 7.3 K/UL (4.8-10.8) Red Blood Count 3.68 M/UL (4.70-6.10) L Hemoglobin 11.1 G/DL (14.2-18.0) L Hematocrit 32.1 % (42.0-52.0) L Mean Corpuscular Volume 87 FL (80-99) Mean Corpuscular Hemoglobin 30.1 PG (27.0-31.0) Mean Corpuscular Hemoglobin Concent 34.5 G/DL (32.0-36.0) Red Cell Distribution Width 11.9 % (11.6-14.8) Platelet Count 255 K/UL (150-450) Mean Platelet Volume 6.6 FL (6.5-10.1) Neutrophils (%) (Auto) 59.5 % (45.0-75.0) Lymphocytes (%) (Auto) 22.6 % (20.0-45.0) Monocytes (%) (Auto) 8.0 % (1.0-10.0) Eosinophils (%) (Auto) 8.2 % (0.0-3.0) H Basophils (%) (Auto) 1.8 % (0.0-2.0) Sodium Level 141 MMOL/L (136-145) Potassium Level 3.5 MMOL/L (3.5-5.1) Chloride Level 107 MMOL/L (98-107) Carbon Dioxide Level 27 MMOL/L (21-32) Anion Gap 7 mmol/L (5-15) Blood Urea Nitrogen 20 mg/dL (7-18) H Creatinine 2.7 MG/DL (0.55-1.30) H Estimat Glomerular Filtration Rate 28.8 mL/min (>60) Glucose Level 86 MG/DL (74-106) Uric Acid 7.3 MG/DL (2.6-7.2) H Calcium Level 9.5 MG/DL (8.5-10.1) Phosphorus Level 3.3 MG/DL (2.5-4.9) Magnesium Level 2.4 MG/DL (1.8-2.4) Iron Level 32 ug/dL (50-175) L Total Iron Binding Capacity 186 ug/dL (250-450) L Percent Iron Saturation 17 % (15-50) Unsaturated Iron Binding 154 ug/dL (112-346) Ferritin 197 NG/ML (8-388) Total Bilirubin 0.6 MG/DL (0.2-1.0) Gamma Glutamyl Transpeptidase 65 U/L (5-85) Aspartate Amino Transf (AST/SGOT) 11 U/L (15-37) L Alanine Aminotransferase (ALT/SGPT) 22 U/L (12-78) Alkaline Phosphatase 105 U/L (46-116) Total Creatine Kinase 63 U/L (26-308) Troponin I 0.017 ng/mL (0.000-0.056) Pro-B-Type Natriuretic Peptide 429 pg/mL (0-125) H Total Protein 7.4 G/DL (6.4-8.2) Albumin 3.1 G/DL (3.4-5.0) L Globulin 4.3 g/dL Albumin/Globulin Ratio 0.7 (1.0-2.7) L Vitamin B12 Level 744 PG/ML (193-986) Folate 10.1 NG/ML (8.6-58.9) Random Vancomycin Level 11.4 ug/mL Demetrius Andrade MD Mar 06, 2018 10:12
[2018-03-06 12:00] VITALS: BP 134/89
--- NOTE | 2018-03-06 13:51 | General Progress Note ---
Assessment/Plan Problem List: (1) Chronic respiratory failure ICD Codes: J96.10 - Chronic respiratory failure, unspecified whether with hypoxia or hypercapnia SNOMED: 03539810 (2) Pneumonia ICD Codes: J18.9 - Pneumonia, unspecified organism SNOMED: 858520318 (3) HTN (hypertension) ICD Codes: I10 - Essential (primary) hypertension SNOMED: 06777911 (4) COPD (chronic obstructive pulmonary disease) ICD Codes: J44.9 - Chronic obstructive pulmonary disease, unspecified SNOMED: 54862119 (5) Renal failure ICD Codes: N19 - Unspecified kidney failure SNOMED: 41561944 Status: stable, progressing Assessment/Plan vent abx bp bs control neph eval cbc bmp am Subjective Constitutional: Reports: weakness Allergies: Coded Allergies: No Known Allergies (Unverified , 06/17/16) All Systems: reviewed and negative except above Subjective trach vent awake Objective Last 24 Hour Vital Signs Date Time Temp Pulse Resp B/P (MAP) Pulse Ox O2 Delivery O2 Flow Rate FiO2 03/06/18 13:28 83 19 30 03/06/18 12:00 70 03/06/18 12:00 40 03/06/18 12:00 97.7 73 19 134/89 (104) 100 97.7 03/06/18 12:00 Mechanical Ventilator 03/06/18 11:13 94 19 30 03/06/18 09:36 88 18 99 Mechanical Ventilator 30 03/06/18 09:28 93 18 99 Mechanical Ventilator 30 03/06/18 08:53 92 18 30 03/06/18 08:00 Mechanical Ventilator 03/06/18 08:00 89 03/06/18 08:00 98.1 87 20 118/75 (89) 100 98.1 03/06/18 08:00 40 03/06/18 07:15 97 18 30 03/06/18 05:11 69 20 30 03/06/18 04:00 97.5 73 18 110/77 (88) 100 97.5 03/06/18 04:00 79 03/06/18 04:00 40 03/06/18 04:00 Mechanical Ventilator 03/06/18 02:55 70 18 30 03/06/18 01:21 66 18 30 03/06/18 00:00 97.9 80 19 138/69 (92) 100 97.9 03/06/18 00:00 Mechanical Ventilator 03/06/18 00:00 40 03/06/18 00:00 68 03/05/18 23:03 68 19 30 03/05/18 21:41 78 19 99 Mechanical Ventilator 30 03/05/18 21:26 80 19 30 03/05/18 21:26 80 19 99 Mechanical Ventilator 30 03/05/18 20:00 40 03/05/18 20:00 Mechanical Ventilator 03/05/18 20:00 97.9 88 18 114/73 (87) 100 97.9 03/05/18 20:00 79 03/05/18 18:46 81 22 30 03/05/18 17:03 77 20 100 Mechanical Ventilator 30 03/05/18 16:53 72 20 100 Mechanical Ventilator 30 03/05/18 16:51 72 20 30 03/05/18 16:00 Mechanical Ventilator 03/05/18 16:00 40 03/05/18 16:00 69 03/05/18 16:00 99.3 78 18 157/83 (107) 100 99.3 03/05/18 15:00 84 22 30 Intake and Output 03/05/18 03/06/18 19:00 07:00 Intake Total 450 ml 872 ml Output Total 800 ml 675 ml Balance -350 ml 197 ml Intake Oral 350 ml IV Total 100 ml 872 ml Output Urine Total 800 ml 675 ml # Bowel Movements 2 Laboratory Tests 03/06/18 03:30: Urine Eosinophils None seen 03/06/18 05:52: White Blood Count 7.3, Red Blood Count 3.68L, Hemoglobin 11.1L, Hematocrit 32.1L , Mean Corpuscular Volume 87, Mean Corpuscular Hemoglobin 30.1, Mean Corpuscular Hemoglobin Concent 34.5, Red Cell Distribution Width 11.9, Platelet Count 255, Mean Platelet Volume 6.6, Neutrophils (%) (Auto) 59.5, Lymphocytes (% ) (Auto) 22.6, Monocytes (%) (Auto) 8.0, Eosinophils (%) (Auto) 8.2H, Basophils (%) (Auto) 1.8, Sodium Level 141, Potassium Level 3.5, Chloride Level 107, Carbon Dioxide Level 27, Anion Gap 7, Blood Urea Nitrogen 20H, Creatinine 2.7H, Estimat Glomerular Filtration Rate 28.8, Glucose Level 86, Uric Acid 7.3H, Calcium Level 9.5, Phosphorus Level 3.3, Magnesium Level 2.4, Iron Level 32L, Total Iron Binding Capacity 186L, Percent Iron Saturation 17, Unsaturated Iron Binding 154, Ferritin 197, Total Bilirubin 0.6, Gamma Glutamyl Transpeptidase 65 , Aspartate Amino Transf (AST/SGOT) 11L, Alanine Aminotransferase (ALT/SGPT) 22 , Alkaline Phosphatase 105, Total Creatine Kinase 63, Troponin I 0.017, Pro-B- Type Natriuretic Peptide 429H, Total Protein 7.4, Albumin 3.1L, Globulin 4.3, Albumin/Globulin Ratio 0.7L, Vitamin B12 Level 744, Folate 10.1, Random Vancomycin Level 11.4 Height (Feet): 5 Height (Inches): 4.00 Weight (Pounds): 181 General Appearance: lethargic EENT: normal ENT inspection Neck: normal alignment Cardiovascular: normal peripheral pulses, normal rate, regular rhythm Respiratory/Chest: chest wall non-tender, lungs clear, normal breath sounds Abdomen: normal bowel sounds, non tender, soft Extremities: normal inspection Edema: no edema noted Arm (L), no edema noted Arm (R), no edema noted Leg (L), no edema noted Leg (R), no edema noted Pedal (L), no edema noted Pedal (R), no edema noted Generalized Neurologic: responsive, motor weakness Skin: normal pigmentation, warm/dry Elan Petersen DO Mar 06, 2018 13:51
[2018-03-06 15:53] VITALS: BP 137/90
[2018-03-06] MEDS: Albuterol/Ipratropium 3ml neb HHN PRN (17:51)
--- NOTE | 2018-03-06 17:57 | Infectious Diseases Prog Note ---
Assessment/Plan Assessment/Plan Probable PNA -CT chest: Consolidation and volume loss within the posterior superior segment right upper lobe, consistent with pneumonia. Review of prior imaging studies, however, indicates more extensive disease was present previously, so this probably represents residual from previous acute episodes, although it could represent recurrent acute disease. Cystic space within the apex of the right lower lobe, evident also on 11/14/2017, may reflect residua of a previous lung abscess, versus a bulla. Previously demonstrated left lung disease is largely resolved, with only minimal scarring at the left lung base. Diffuse hyperinflation, consistent with COPD changes -sp cx MDR PsA (S genta, Colistin/polymixin B),S. 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 Appropriate tracheostomy position. No evidence of radiopaque foreign body ORI, worsneing -supratherapeutic vanco levels; vanco d/c 03/02 DM HTN asthma/COPD interstitial PNA Colon mass s/p hemicolectomy chronic resp failure trach/vent dependant pHTN RLE DVT pulmonary nodules SNF resident Plan: -Continue INH Colistin #/ for MDR PsA in sputum cx -03/03 SP Zosyn d# 6 -03/02 SP IV Vanco #5, azithromycin # 5 -7/9 SP IV Vancomycin # 14 ( MRSA PNA), Levaquin #10 -01/11 SP Ceftazidime #7 - Sp Meropenem abx #4 -12/30 SP Levaquin x1, Zosyn #1 -f/u Blcx -Monitor CBC/CMP, temperatures -aspiration precautions -Monitor CBC/BMP, temperatures -trach care -wound care/prevention per hospital protocol Discussed with RN Subjective Allergies: Coded Allergies: No Known Allergies (Unverified , 06/17/16) Subjective afebrile no leukcoytosis Objective Vital Signs Last 24 Hour Vital Signs Date Time Temp Pulse Resp B/P (MAP) Pulse Ox O2 Delivery O2 Flow Rate FiO2 03/06/18 17:48 83 19 99 Mechanical Ventilator 30 03/06/18 16:41 85 18 30 03/06/18 16:00 77 03/06/18 16:00 Mechanical Ventilator 03/06/18 16:00 40 03/06/18 15:53 98.3 87 18 137/90 (106) 99 98.3 03/06/18 15:14 87 20 30 03/06/18 13:28 83 19 30 03/06/18 12:00 70 03/06/18 12:00 40 03/06/18 12:00 97.7 73 19 134/89 (104) 100 97.7 03/06/18 12:00 Mechanical Ventilator 03/06/18 11:13 94 19 30 03/06/18 09:36 88 18 99 Mechanical Ventilator 30 03/06/18 09:28 93 18 99 Mechanical Ventilator 30 03/06/18 08:53 92 18 30 03/06/18 08:00 Mechanical Ventilator 03/06/18 08:00 89 03/06/18 08:00 98.1 87 20 118/75 (89) 100 98.1 03/06/18 08:00 40 03/06/18 07:15 97 18 30 03/06/18 05:11 69 20 30 03/06/18 04:00 97.5 73 18 110/77 (88) 100 97.5 03/06/18 04:00 79 03/06/18 04:00 40 03/06/18 04:00 Mechanical Ventilator 03/06/18 02:55 70 18 30 03/06/18 01:21 66 18 30 03/06/18 00:00 97.9 80 19 138/69 (92) 100 97.9 03/06/18 00:00 Mechanical Ventilator 03/06/18 00:00 40 03/06/18 00:00 68 03/05/18 23:03 68 19 30 03/05/18 21:41 78 19 99 Mechanical Ventilator 30 03/05/18 21:26 80 19 30 03/05/18 21:26 80 19 99 Mechanical Ventilator 30 03/05/18 20:00 40 03/05/18 20:00 Mechanical Ventilator 03/05/18 20:00 97.9 88 18 114/73 (87) 100 97.9 03/05/18 20:00 79 03/05/18 18:46 81 22 30 Height (Feet): 5 Height (Inches): 4.00 Weight (Pounds): 181 Objective Lines, tubes and drains: peripheral HEENT: normocephalic, atraumatic Neck: non-tender, normal alignment Respiratory/Chest: chest wall non-tender Cardiovascular/Chest: normal rate Abdomen: normal bowel sounds, non tender Extremities: normal range of motion Laboratory Tests Test 03/06/18 03:30 03/06/18 05:52 Urine Eosinophils None seen (NONE SEEN) White Blood Count 7.3 K/UL (4.8-10.8) Red Blood Count 3.68 M/UL (4.70-6.10) L Hemoglobin 11.1 G/DL (14.2-18.0) L Hematocrit 32.1 % (42.0-52.0) L Mean Corpuscular Volume 87 FL (80-99) Mean Corpuscular Hemoglobin 30.1 PG (27.0-31.0) Mean Corpuscular Hemoglobin Concent 34.5 G/DL (32.0-36.0) Red Cell Distribution Width 11.9 % (11.6-14.8) Platelet Count 255 K/UL (150-450) Mean Platelet Volume 6.6 FL (6.5-10.1) Neutrophils (%) (Auto) 59.5 % (45.0-75.0) Lymphocytes (%) (Auto) 22.6 % (20.0-45.0) Monocytes (%) (Auto) 8.0 % (1.0-10.0) Eosinophils (%) (Auto) 8.2 % (0.0-3.0) H Basophils (%) (Auto) 1.8 % (0.0-2.0) Sodium Level 141 MMOL/L (136-145) Potassium Level 3.5 MMOL/L (3.5-5.1) Chloride Level 107 MMOL/L (98-107) Carbon Dioxide Level 27 MMOL/L (21-32) Anion Gap 7 mmol/L (5-15) Blood Urea Nitrogen 20 mg/dL (7-18) H Creatinine 2.7 MG/DL (0.55-1.30) H Estimat Glomerular Filtration Rate 28.8 mL/min (>60) Glucose Level 86 MG/DL (74-106) Uric Acid 7.3 MG/DL (2.6-7.2) H Calcium Level 9.5 MG/DL (8.5-10.1) Phosphorus Level 3.3 MG/DL (2.5-4.9) Magnesium Level 2.4 MG/DL (1.8-2.4) Iron Level 32 ug/dL (50-175) L Total Iron Binding Capacity 186 ug/dL (250-450) L Percent Iron Saturation 17 % (15-50) Unsaturated Iron Binding 154 ug/dL (112-346) Ferritin 197 NG/ML (8-388) Total Bilirubin 0.6 MG/DL (0.2-1.0) Gamma Glutamyl Transpeptidase 65 U/L (5-85) Aspartate Amino Transf (AST/SGOT) 11 U/L (15-37) L Alanine Aminotransferase (ALT/SGPT) 22 U/L (12-78) Alkaline Phosphatase 105 U/L (46-116) Total Creatine Kinase 63 U/L (26-308) Troponin I 0.017 ng/mL (0.000-0.056) Pro-B-Type Natriuretic Peptide 429 pg/mL (0-125) H Total Protein 7.4 G/DL (6.4-8.2) Albumin 3.1 G/DL (3.4-5.0) L Globulin 4.3 g/dL Albumin/Globulin Ratio 0.7 (1.0-2.7) L Vitamin B12 Level 744 PG/ML (193-986) Folate 10.1 NG/ML (8.6-58.9) Random Vancomycin Level 11.4 ug/mL Current Medications Medications (Trade) Dose Ordered Sig/Shraddha Route PRN Reason Start Time Stop Time Status Last Admin Dose Admin Acetaminophen (Tylenol) 650 mg Q4H PRN ORAL FEVER 02/26/18 20:45 03/28/18 20:44 Albuterol/ Ipratropium (Albuterol/ Ipratropium) 3 ml Q4H PRN HHN Shortness of Breath 03/04/18 16:15 03/09/18 16:14 03/06/18 17:51 Colistimethate Sodium (Colistin *inhalation use only*) 150 mg Q12HR@10,22 INH 03/03/18 22:00 03/10/18 21:59 03/06/18 08:51 Dextrose (Dextrose 50%) 25 ml STAT PRN IV Hypoglycemia 02/26/18 20:45 03/28/18 20:44 Dextrose (Dextrose 50%) 50 ml STAT PRN IV Hypoglycemia 02/26/18 21:45 03/28/18 21:44 Dextrose/ Electrolytes 1,000 ml @ 75 mls/hr [id number] IV 03/06/18 09:15 04/05/18 09:14 03/06/18 09:38 Heparin Sodium (Porcine) (Heparin 5000 units/ml) 5,000 units EVERY 12 HOURS SUBQ 02/26/18 21:00 03/28/18 20:59 03/06/18 10:11 Lidocaine (Xylocaine 1% MPF 5ml) 10 ml Q4H PRN HHN cough 03/01/18 12:35 03/31/18 12:34 03/04/18 03:06 Morphine Sulfate (Morphine Sulfate) 4 mg Q4H PRN IVP PAIN 4-10 03/06/18 08:45 03/13/18 08:44 03/06/18 15:49 Ondansetron HCl (Zofran) 4 mg Q6H PRN IVP Nausea & Vomiting 02/26/18 21:30 03/28/18 21:29 Pantoprazole (Protonix) 40 mg DAILY IV 02/27/18 09:00 03/29/18 08:59 03/06/18 09:38 Promethazine HCl (Phenergan Plain) 6.25 mg Q6H PRN ORAL For Cough 02/26/18 21:30 03/28/18 21:29 03/06/18 00:15 Tianna Jolley M.D. Mar 06, 2018 17:57
[2018-03-06 20:00] VITALS: BP 122/91
[2018-03-07] VITALS: BP 133/99
[2018-03-07 04:00] VITALS: BP 113/80
[2018-03-07] MEDS: Morphine Sulfate 4mg/ml Inj (IV USE ONLY) IVP PRN (04:48)
[2018-03-07 05:36] LABS: BASOPHILS % (AUTO) 1.2 % (0.0-2.0); EOSINOPHILS % (AUTO) 5.1 % (0.0-3.0); HEMATOCRIT 32.4 % (42.0-52.0); HEMOGLOBIN 11.1 G/DL (14.2-18.0); LYMPHOCYTES % (AUTO) 17.1 % (20.0-45.0); MEAN CORPUSCULAR VOLUME 87 FL (80-99); NEUTROPHILS % (AUTO) 64.6 % (45.0-75.0); PLATELET COUNT 246 K/UL (150-450); RED BLOOD COUNT 3.72 M/UL (4.70-6.10); WHITE BLOOD COUNT 8.7 K/UL (4.8-10.8)
[2018-03-07 05:41] LABS: INR 1.3 (0.9-1.1)
[2018-03-07 05:46] LABS: ALANINE AMINOTRANSFERASE 16 U/L (12-78); ALBUMIN 3.1 G/DL (3.4-5.0); ALBUMIN/GLOBULIN RATIO 0.7 (1.0-2.7); ALKALINE PHOSPHATASE 104 U/L (46-116); ANION GAP 8 mmol/L (5-15); ASPARTATE AMINO TRANSFERASE 9 U/L (15-37); BILIRUBIN,TOTAL 0.6 MG/DL (0.2-1.0); BLOOD UREA NITROGEN 19 mg/dL (7-18); CALCIUM 9.7 MG/DL (8.5-10.1); CARBON DIOXIDE 26 MMOL/L (21-32); CHLORIDE 107 MMOL/L (98-107); CREATININE 2.8 MG/DL (0.55-1.30); PHOSPHORUS 3.1 MG/DL (2.5-4.9); POTASSIUM 3.4 MMOL/L (3.5-5.1); SODIUM 141 MMOL/L (136-145)
--- NOTE | 2018-03-07 07:24 | Infectious Diseases Prog Note ---
Assessment/Plan Assessment/Plan Probable PNA -CT chest: Consolidation and volume loss within the posterior superior segment right upper lobe, consistent with pneumonia. Review of prior imaging studies, however, indicates more extensive disease was present previously, so this probably represents residual from previous acute episodes, although it could represent recurrent acute disease. Cystic space within the apex of the right lower lobe, evident also on 11/14/2017, may reflect residua of a previous lung abscess, versus a bulla. Previously demonstrated left lung disease is largely resolved, with only minimal scarring at the left lung base. Diffuse hyperinflation, consistent with COPD changes -sp cx MDR PsA (S genta, Colistin/polymixin B),S. marcences (R ancef, I Cipro/ levo,otherwise S) -legionella ag urine neg Afebrile, no leukocytosis Recent HCAP 2ry to MRSA, 12/2017; s/p Rx REcent CONS and ACB bacteremia 12/2017, s/o Rx -12/30 Bcx 4/ CONS, 07/10 ACB (I Ceftriaxone; S levaquin, Ceftazidime, bactrim , Imipenem) -01/01 Bcx Neg Hx of ventilator-associated pneumonia 07/2017, s/p Rx -sp cx #P mirabilis (S Ancef, Ceftriaxone, Zosyn, Ertapenem; R Imipenem, Cipro/Levo) +4 Serratia marcecens (S Ceftriaxone, Ertapenem) Stridor ( Sp change of trach ) -CT neck: No definite acute process. Appropriate tracheostomy position. No evidence of radiopaque foreign body ORI, worsneing -supratherapeutic vanco levels; vanco d/c 03/02 DM HTN asthma/COPD interstitial PNA Colon mass s/p hemicolectomy chronic resp failure trach/vent dependant pHTN RLE DVT pulmonary nodules SNF resident Plan: -Continue INH Colistin #5/10 for MDR PsA in sputum cx End date 03/12/18 -03/03 SP Zosyn d# -03/02 SP IV Vanco #5, azithromycin # 5 -/ SP IV Vancomycin # 14 ( MRSA PNA), Levaquin #10 -01/11 SP Ceftazidime #7 - Sp Meropenem abx # -12/30 SP Levaquin x1, Zosyn #1 -f/u Blcx -Monitor CBC/CMP, temperatures -aspiration precautions -Monitor CBC/BMP, temperatures -trach care -wound care/prevention per hospital protocol Subjective Allergies: Coded Allergies: No Known Allergies (Unverified , 06/17/16) Subjective Afebrile On Vent Sat well Awake and talking through trach Objective Vital Signs Last 24 Hour Vital Signs Date Time Temp Pulse Resp B/P (MAP) Pulse Ox O2 Delivery O2 Flow Rate FiO2 03/07/18 05:28 88 19 30 03/07/18 04:00 40 03/07/18 04:00 97.9 96 19 113/80 (91) 100 97.9 03/07/18 04:00 97 03/07/18 04:00 Mechanical Ventilator 03/07/18 03:14 83 18 30 03/07/18 01:29 87 18 30 03/07/18 00:00 98.1 87 20 133/99 (110) 100 98.1 03/07/18 00:00 40 03/07/18 00:00 Mechanical Ventilator 03/07/18 00:00 87 03/06/18 23:29 83 18 30 03/06/18 21:24 84 18 30 03/06/18 21:23 84 18 100 Mechanical Ventilator 30 03/06/18 21:19 85 18 100 Mechanical Ventilator 30 03/06/18 20:00 Mechanical Ventilator 03/06/18 20:00 98.1 92 18 122/91 (101) 100 98.1 03/06/18 20:00 40 03/06/18 20:00 72 03/06/18 19:09 81 18 30 03/06/18 17:56 85 19 99 Mechanical Ventilator 30 03/06/18 17:48 83 19 99 Mechanical Ventilator 30 03/06/18 16:41 85 18 30 03/06/18 16:00 77 03/06/18 16:00 Mechanical Ventilator 03/06/18 16:00 40 03/06/18 15:53 98.3 87 18 137/90 (106) 99 98.3 03/06/18 15:14 87 20 30 03/06/18 13:28 83 19 30 03/06/18 12:00 70 03/06/18 12:00 40 03/06/18 12:00 97.7 73 19 134/89 (104) 100 97.7 03/06/18 12:00 Mechanical Ventilator 03/06/18 11:13 94 19 30 03/06/18 09:36 88 18 99 Mechanical Ventilator 30 03/06/18 09:28 93 18 99 Mechanical Ventilator 30 03/06/18 08:53 92 18 30 03/06/18 08:00 Mechanical Ventilator 03/06/18 08:00 89 03/06/18 08:00 98.1 87 20 118/75 (89) 100 98.1 03/06/18 08:00 40 Height (Feet): 5 Height (Inches): 4.00 Weight (Pounds): 181 Objective HEENT: NCAT, Neck: non-tender, normal alignment Respiratory/Chest: CTAB, On vent Cardiovascular/Chest: RRR, S1, S2 Abdomen: normal bowel sounds, non tender Extremities: normal range of motion Laboratory Tests Test 03/07/18 04:50 White Blood Count 8.7 K/UL (4.8-10.8) Red Blood Count 3.72 M/UL (4.70-6.10) L Hemoglobin 11.1 G/DL (14.2-18.0) L Hematocrit 32.4 % (42.0-52.0) L Mean Corpuscular Volume 87 FL (80-99) Mean Corpuscular Hemoglobin 29.9 PG (27.0-31.0) Mean Corpuscular Hemoglobin Concent 34.3 G/DL (32.0-36.0) Red Cell Distribution Width 12.0 % (11.6-14.8) Platelet Count 246 K/UL (150-450) Mean Platelet Volume 7.0 FL (6.5-10.1) Neutrophils (%) (Auto) 64.6 % (45.0-75.0) Lymphocytes (%) (Auto) 17.1 % (20.0-45.0) L Monocytes (%) (Auto) 12.0 % (1.0-10.0) H Eosinophils (%) (Auto) 5.1 % (0.0-3.0) H Basophils (%) (Auto) 1.2 % (0.0-2.0) Prothrombin Time 14.0 SEC (9.30-11.50) H Prothromb Time International Ratio 1.3 (0.9-1.1) H Activated Partial Thromboplast Time 37 SEC (23-33) H Sodium Level 141 MMOL/L (136-145) Potassium Level 3.4 MMOL/L (3.5-5.1) L Chloride Level 107 MMOL/L (98-107) Carbon Dioxide Level 26 MMOL/L (21-32) Anion Gap 8 mmol/L (5-15) Blood Urea Nitrogen 19 mg/dL (7-18) H Creatinine 2.8 MG/DL (0.55-1.30) H Estimat Glomerular Filtration Rate 27.6 mL/min (>60) Glucose Level 111 MG/DL (74-106) H Calcium Level 9.7 MG/DL (8.5-10.1) Phosphorus Level 3.1 MG/DL (2.5-4.9) Magnesium Level 2.3 MG/DL (1.8-2.4) Total Bilirubin 0.6 MG/DL (0.2-1.0) Aspartate Amino Transf (AST/SGOT) 9 U/L (15-37) L Alanine Aminotransferase (ALT/SGPT) 16 U/L (12-78) Alkaline Phosphatase 104 U/L (46-116) Total Protein 7.4 G/DL (6.4-8.2) Albumin 3.1 G/DL (3.4-5.0) L Globulin 4.3 g/dL Albumin/Globulin Ratio 0.7 (1.0-2.7) L Current Medications Medications (Trade) Dose Ordered Sig/Shraddha Route PRN Reason Start Time Stop Time Status Last Admin Dose Admin Acetaminophen (Tylenol) 650 mg Q4H PRN ORAL FEVER 02/26/18 20:45 03/28/18 20:44 Albuterol/ Ipratropium (Albuterol/ Ipratropium) 3 ml Q4H PRN HHN Shortness of Breath 03/04/18 16:15 03/09/18 16:14 03/06/18 17:51 Colistimethate Sodium (Colistin *inhalation use only*) 150 mg Q12HR@10,22 INH 03/03/18 22:00 03/10/18 21:59 03/06/18 21:19 Dextrose (Dextrose 50%) 25 ml STAT PRN IV Hypoglycemia 02/26/18 20:45 03/28/18 20:44 Dextrose (Dextrose 50%) 50 ml STAT PRN IV Hypoglycemia 02/26/18 21:45 03/28/18 21:44 Dextrose/ Electrolytes 1,000 ml @ 75 mls/hr [id number] IV 03/06/18 09:15 04/05/18 09:14 03/06/18 21:31 Heparin Sodium (Porcine) (Heparin 5000 units/ml) 5,000 units EVERY 12 HOURS SUBQ 02/26/18 21:00 03/28/18 20:59 03/06/18 21:31 Lidocaine (Xylocaine 1% MPF 5ml) 10 ml Q4H PRN HHN cough 03/01/18 12:35 03/31/18 12:34 03/04/18 03:06 Morphine Sulfate (Morphine Sulfate) 4 mg Q4H PRN IVP PAIN 4-10 03/06/18 08:45 03/13/18 08:44 03/07/18 04:48 Ondansetron HCl (Zofran) 4 mg Q6H PRN IVP Nausea & Vomiting 02/26/18 21:30 03/28/18 21:29 Pantoprazole (Protonix) 40 mg DAILY IV 02/27/18 09:00 03/29/18 08:59 03/06/18 09:38 Promethazine HCl (Phenergan Plain) 6.25 mg Q6H PRN ORAL For Cough 02/26/18 21:30 03/28/18 21:29 03/06/18 00:15 Vince Davalos MD Mar 07, 2018 07:24
--- NOTE | 2018-03-07 07:28 | Pulmonology Progress Note ---
Assessment/Plan Assessment/Plan ASSESSMENT Acute renal failure Acute on chronic respiratory failure, ventilator dependent with tracheostomy status Sepsis Nosocomial pneumonia with pseudomonas MDR and Serratia Stridor, status post tracheostomy change COPD history of hypertension Diabetes mellitus Colon Ca, s/p hemicolectomy PLAN OF CARE [facility] status Vent support and trach care pulmonary toilet prn baseline ABG stable on current settings, keep as is and titrate prn pulmonary toilet abx , ID follows sputum cx +Pseudomonas MDR , Serratia blood cx- DVT prophylaxis strict aspiration precautions antitussive prn CT - no acute process , s/p tracheostomy change CT of the chest with evidence of PNA and COPD changes F/up with CXR venous duplex BLE no acute DVT soil tester follows IV fluids monitor renal parameters and lytes correct lytes prn, avoid nephrotoxic renal US according to soil tester, acute renal failure likely secondary to hypotension and/or nephrotoxic drugs( i.e. vancomycin larval was high) off BP meds , BP stable HgA1c- 5.8 supportive care bowel regimen pain management prn case discussed and evaluated by supervising physician Subjective Allergies: Coded Allergies: No Known Allergies (Unverified , 06/17/16) Subjective afebrile, no leucocytosis, stable on current vent settings Objective Last 24 Hour Vital Signs Date Time Temp Pulse Resp B/P (MAP) Pulse Ox O2 Delivery O2 Flow Rate FiO2 03/07/18 05:28 88 19 30 03/07/18 04:00 40 03/07/18 04:00 97.9 96 19 113/80 (91) 100 97.9 03/07/18 04:00 97 03/07/18 04:00 Mechanical Ventilator 03/07/18 03:14 83 18 30 03/07/18 01:29 87 18 30 03/07/18 00:00 98.1 87 20 133/99 (110) 100 98.1 03/07/18 00:00 40 03/07/18 00:00 Mechanical Ventilator 03/07/18 00:00 87 03/06/18 23:29 83 18 30 03/06/18 21:24 84 18 30 03/06/18 21:23 84 18 100 Mechanical Ventilator 30 03/06/18 21:19 85 18 100 Mechanical Ventilator 30 03/06/18 20:00 Mechanical Ventilator 03/06/18 20:00 98.1 92 18 122/91 (101) 100 98.1 03/06/18 20:00 40 03/06/18 20:00 72 03/06/18 19:09 81 18 30 03/06/18 17:56 85 19 99 Mechanical Ventilator 30 03/06/18 17:48 83 19 99 Mechanical Ventilator 30 03/06/18 16:41 85 18 30 03/06/18 16:00 77 03/06/18 16:00 Mechanical Ventilator 03/06/18 16:00 40 03/06/18 15:53 98.3 87 18 137/90 (106) 99 98.3 03/06/18 15:14 87 20 30 03/06/18 13:28 83 19 30 03/06/18 12:00 70 03/06/18 12:00 40 03/06/18 12:00 97.7 73 19 134/89 (104) 100 97.7 03/06/18 12:00 Mechanical Ventilator 03/06/18 11:13 94 19 30 03/06/18 09:36 88 18 99 Mechanical Ventilator 30 03/06/18 09:28 93 18 99 Mechanical Ventilator 30 03/06/18 08:53 92 18 30 03/06/18 08:00 Mechanical Ventilator 03/06/18 08:00 89 03/06/18 08:00 98.1 87 20 118/75 (89) 100 98.1 03/06/18 08:00 40 Intake and Output 03/06/18 03/07/18 19:00 07:00 Intake Total 1140 ml 720 ml Output Total 950 ml 900 ml Balance 190 ml -180 ml Intake Oral 450 ml 120 ml IV Total 690 ml 600 ml Output Urine Total 950 ml 900 ml General Appearance: no acute distress, other - Vent AC 700-30%-18 HEENT: normocephalic, atraumatic, anicteric, EOMI, status post trach - Portex # 8, secretions small yellow, thick Respiratory/Chest: lungs clear - with moderate air exchange , no respiratory distress, no accessory muscle use Cardiovascular: normal rate, regular rhythm - SR on tele Abdomen: normal bowel sounds, soft, non tender, non distended Extremities: no edema, pedal pulses normal Neurologic/Psychiatric: abnormal gait, alert, responsive, normal mood/affect Musculoskeletal: normal muscle bulk Laboratory Tests 03/07/18 04:50: White Blood Count 8.7, Red Blood Count 3.72L, Hemoglobin 11.1L, Hematocrit 32.4L , Mean Corpuscular Volume 87, Mean Corpuscular Hemoglobin 29.9, Mean Corpuscular Hemoglobin Concent 34.3, Red Cell Distribution Width 12.0, Platelet Count 246, Mean Platelet Volume 7.0, Neutrophils (%) (Auto) 64.6, Lymphocytes (% ) (Auto) 17.1L, Monocytes (%) (Auto) 12.0H, Eosinophils (%) (Auto) 5.1H, Basophils (%) (Auto) 1.2, Prothrombin Time 14.0H, Prothromb Time International Ratio 1.3H, Activated Partial Thromboplast Time 37H, Sodium Level 141, Potassium Level 3.4L, Chloride Level 107, Carbon Dioxide Level 26, Anion Gap 8, Blood Urea Nitrogen 19H, Creatinine 2.8H, Estimat Glomerular Filtration Rate 27.6, Glucose Level 111H, Calcium Level 9.7, Phosphorus Level 3.1, Magnesium Level 2.3, Total Bilirubin 0.6, Aspartate Amino Transf (AST/SGOT) 9L, Alanine Aminotransferase (ALT/SGPT) 16, Alkaline Phosphatase 104, Total Protein 7.4, Albumin 3.1L, Globulin 4.3, Albumin/Globulin Ratio 0.7L Current Medications Medications (Trade) Dose Ordered Sig/Shraddha Route PRN Reason Start Time Stop Time Status Last Admin Dose Admin Acetaminophen (Tylenol) 650 mg Q4H PRN ORAL FEVER 02/26/18 20:45 03/28/18 20:44 Albuterol/ Ipratropium (Albuterol/ Ipratropium) 3 ml Q4H PRN HHN Shortness of Breath 03/04/18 16:15 03/09/18 16:14 03/06/18 17:51 Colistimethate Sodium (Colistin *inhalation use only*) 150 mg Q12HR@10,22 INH 03/03/18 22:00 03/10/18 21:59 03/06/18 21:19 Dextrose (Dextrose 50%) 25 ml STAT PRN IV Hypoglycemia 02/26/18 20:45 03/28/18 20:44 Dextrose (Dextrose 50%) 50 ml STAT PRN IV Hypoglycemia 02/26/18 21:45 03/28/18 21:44 Dextrose/ Electrolytes 1,000 ml @ 75 mls/hr [id number] IV 03/06/18 09:15 04/05/18 09:14 03/06/18 21:31 Heparin Sodium (Porcine) (Heparin 5000 units/ml) 5,000 units EVERY 12 HOURS SUBQ 02/26/18 21:00 03/28/18 20:59 03/06/18 21:31 Lidocaine (Xylocaine 1% MPF 5ml) 10 ml Q4H PRN HHN cough 03/01/18 12:35 03/31/18 12:34 03/04/18 03:06 Morphine Sulfate (Morphine Sulfate) 4 mg Q4H PRN IVP PAIN 4-10 03/06/18 08:45 03/13/18 08:44 03/07/18 04:48 Ondansetron HCl (Zofran) 4 mg Q6H PRN IVP Nausea & Vomiting 02/26/18 21:30 03/28/18 21:29 Pantoprazole (Protonix) 40 mg DAILY IV 02/27/18 09:00 03/29/18 08:59 03/06/18 09:38 Promethazine HCl (Phenergan Plain) 6.25 mg Q6H PRN ORAL For Cough 02/26/18 21:30 03/28/18 21:29 03/06/18 00:15 Katia Sequeira APPLICATIONS SPECIALIST Mar 07, 2018 07:28
[2018-03-07 08:00] VITALS: BP 144/81
[2018-03-07] MEDS: Pantoprazole Inj IV SCH (08:19)
[2018-03-07] MEDS: Heparin 5000 units/ml inj SUBQ SCH (08:20)
[2018-03-07] MEDS ORDERED: traMADol 50mg tab ORAL PRN (09:00)
--- NOTE | 2018-03-07 09:04 | Nephrology Progress Note ---
Assessment/Plan Problem List: (1) Acute renal failure (ARF) (2) Acute and chronic respiratory failure (3) Hypotension Assessment Acute Renal failure Possible etiologies: Low BP Nephrotoxic drugs- High Vanco level- Cr leveling 2.8 Other: Acute and chronic respiratory failure Sepsis Nosocomial pneumonia h/o HTN (hypertension) Emphysema of lung Plan Urine eosinophils- DC Norvasc and bp meds Bolus ALbumin and 1/2 NS as needed monitor Vanco level down to 17 today 2D echo Pending Left ventricular ejection fraction estimated to be 65 % Kidney KARIN Negative- No [place] Monitor renal parameters ABG noted stable for DC from renal stand point and follow up Renal parameters as out patient Subjective ROS Limited/Unobtainable: No Objective Objective Last 24 Hour Vital Signs Date Time Temp Pulse Resp B/P (MAP) Pulse Ox O2 Delivery O2 Flow Rate FiO2 03/07/18 08:00 40 03/07/18 08:00 98.1 94 18 144/81 (102) 98 98.1 03/07/18 07:38 91 18 30 03/07/18 05:28 88 19 30 03/07/18 04:00 40 03/07/18 04:00 97.9 96 19 113/80 (91) 100 97.9 03/07/18 04:00 97 03/07/18 04:00 Mechanical Ventilator 03/07/18 03:14 83 18 30 03/07/18 01:29 87 18 30 03/07/18 00:00 98.1 87 20 133/99 (110) 100 98.1 03/07/18 00:00 40 03/07/18 00:00 Mechanical Ventilator 03/07/18 00:00 87 03/06/18 23:29 83 18 30 03/06/18 21:24 84 18 30 03/06/18 21:23 84 18 100 Mechanical Ventilator 30 03/06/18 21:19 85 18 100 Mechanical Ventilator 30 03/06/18 20:00 Mechanical Ventilator 03/06/18 20:00 98.1 92 18 122/91 (101) 100 98.1 03/06/18 20:00 40 03/06/18 20:00 72 03/06/18 19:09 81 18 30 03/06/18 17:56 85 19 99 Mechanical Ventilator 30 03/06/18 17:48 83 19 99 Mechanical Ventilator 30 8/31/18 16:41 85 18 30 03/06/18 16:00 77 03/06/18 16:00 Mechanical Ventilator 03/06/18 16:00 40 03/06/18 15:53 98.3 87 18 137/90 (106) 99 98.3 03/06/18 15:14 87 20 30 03/06/18 13:28 83 19 30 03/06/18 12:00 70 03/06/18 12:00 40 03/06/18 12:00 97.7 73 19 134/89 (104) 100 97.7 03/06/18 12:00 Mechanical Ventilator 03/06/18 11:13 94 19 30 03/06/18 09:36 88 18 99 Mechanical Ventilator 30 03/06/18 09:28 93 18 99 Mechanical Ventilator 30 Intake and Output 03/06/18 03/07/18 19:00 07:00 Intake Total 1140 ml 720 ml Output Total 950 ml 900 ml Balance 190 ml -180 ml Intake Oral 450 ml 120 ml IV Total 690 ml 600 ml Output Urine Total 950 ml 900 ml Laboratory Tests 03/07/18 04:50: White Blood Count 8.7, Red Blood Count 3.72L, Hemoglobin 11.1L, Hematocrit 32.4L , Mean Corpuscular Volume 87, Mean Corpuscular Hemoglobin 29.9, Mean Corpuscular Hemoglobin Concent 34.3, Red Cell Distribution Width 12.0, Platelet Count 246, Mean Platelet Volume 7.0, Neutrophils (%) (Auto) 64.6, Lymphocytes (% ) (Auto) 17.1L, Monocytes (%) (Auto) 12.0H, Eosinophils (%) (Auto) 5.1H, Basophils (%) (Auto) 1.2, Prothrombin Time 14.0H, Prothromb Time International Ratio 1.3H, Activated Partial Thromboplast Time 37H, Sodium Level 141, Potassium Level 3.4L, Chloride Level 107, Carbon Dioxide Level 26, Anion Gap 8, Blood Urea Nitrogen 19H, Creatinine 2.8H, Estimat Glomerular Filtration Rate 27.6, Glucose Level 111H, Calcium Level 9.7, Phosphorus Level 3.1, Magnesium Level 2.3, Total Bilirubin 0.6, Aspartate Amino Transf (AST/SGOT) 9L, Alanine Aminotransferase (ALT/SGPT) 16, Alkaline Phosphatase 104, Total Protein 7.4, Albumin 3.1L, Globulin 4.3, Albumin/Globulin Ratio 0.7L Height (Feet): 5 Height (Inches): 4.00 Weight (Pounds): 181 General Appearance: no apparent distress Objective No change Tyler Srivastava MD Mar 07, 2018 09:04
--- NOTE | 2018-03-07 09:36 | General Progress Note ---
Assessment/Plan Problem List: (1) Chronic respiratory failure ICD Codes: J96.10 - Chronic respiratory failure, unspecified whether with hypoxia or hypercapnia SNOMED: 33661210 (2) Pneumonia ICD Codes: J18.9 - Pneumonia, unspecified organism SNOMED: 460894092 (3) HTN (hypertension) ICD Codes: I10 - Essential (primary) hypertension SNOMED: 14107454 (4) COPD (chronic obstructive pulmonary disease) ICD Codes: J44.9 - Chronic obstructive pulmonary disease, unspecified SNOMED: 30019707 (5) Renal failure ICD Codes: N19 - Unspecified kidney failure SNOMED: 57213544 Status: stable, progressing Assessment/Plan vent abx bp bs control neph eval cbc bmp am Subjective Constitutional: Reports: weakness Allergies: Coded Allergies: No Known Allergies (Unverified , 06/17/16) All Systems: reviewed and negative except above Subjective trach vent asleep Objective Last 24 Hour Vital Signs Date Time Temp Pulse Resp B/P (MAP) Pulse Ox O2 Delivery O2 Flow Rate FiO2 03/07/18 08:00 40 03/07/18 08:00 98.1 94 18 144/81 (102) 98 98.1 03/07/18 07:38 91 18 30 03/07/18 05:28 88 19 30 03/07/18 04:00 40 03/07/18 04:00 97.9 96 19 113/80 (91) 100 97.9 03/07/18 04:00 97 03/07/18 04:00 Mechanical Ventilator 03/07/18 03:14 83 18 30 03/07/18 01:29 87 18 30 03/07/18 00:00 98.1 87 20 133/99 (110) 100 98.1 03/07/18 00:00 40 03/07/18 00:00 Mechanical Ventilator 03/07/18 00:00 87 03/06/18 23:29 83 18 30 03/06/18 21:24 84 18 30 03/06/18 21:23 84 18 100 Mechanical Ventilator 30 03/06/18 21:19 85 18 100 Mechanical Ventilator 30 03/06/18 20:00 Mechanical Ventilator 03/06/18 20:00 98.1 92 18 122/91 (101) 100 98.1 03/06/18 20:00 40 03/06/18 20:00 72 03/06/18 19:09 81 18 30 03/06/18 17:56 85 19 99 Mechanical Ventilator 30 03/06/18 17:48 83 19 99 Mechanical Ventilator 30 03/06/18 16:41 85 18 30 03/06/18 16:00 77 03/06/18 16:00 Mechanical Ventilator 03/06/18 16:00 40 03/06/18 15:53 98.3 87 18 137/90 (106) 99 98.3 03/06/18 15:14 87 20 30 03/06/18 13:28 83 19 30 03/06/18 12:00 70 03/06/18 12:00 40 03/06/18 12:00 97.7 73 19 134/89 (104) 100 97.7 03/06/18 12:00 Mechanical Ventilator 03/06/18 11:13 94 19 30 03/06/18 09:36 88 18 99 Mechanical Ventilator 30 Intake and Output 03/06/18 03/07/18 19:00 07:00 Intake Total 1140 ml 720 ml Output Total 950 ml 900 ml Balance 190 ml -180 ml Intake Oral 450 ml 120 ml IV Total 690 ml 600 ml Output Urine Total 950 ml 900 ml Laboratory Tests 03/07/18 04:50: White Blood Count 8.7, Red Blood Count 3.72L, Hemoglobin 11.1L, Hematocrit 32.4L , Mean Corpuscular Volume 87, Mean Corpuscular Hemoglobin 29.9, Mean Corpuscular Hemoglobin Concent 34.3, Red Cell Distribution Width 12.0, Platelet Count 246, Mean Platelet Volume 7.0, Neutrophils (%) (Auto) 64.6, Lymphocytes (% ) (Auto) 17.1L, Monocytes (%) (Auto) 12.0H, Eosinophils (%) (Auto) 5.1H, Basophils (%) (Auto) 1.2, Prothrombin Time 14.0H, Prothromb Time International Ratio 1.3H, Activated Partial Thromboplast Time 37H, Sodium Level 141, Potassium Level 3.4L, Chloride Level 107, Carbon Dioxide Level 26, Anion Gap 8, Blood Urea Nitrogen 19H, Creatinine 2.8H, Estimat Glomerular Filtration Rate 27.6, Glucose Level 111H, Calcium Level 9.7, Phosphorus Level 3.1, Magnesium Level 2.3, Total Bilirubin 0.6, Aspartate Amino Transf (AST/SGOT) 9L, Alanine Aminotransferase (ALT/SGPT) 16, Alkaline Phosphatase 104, Total Protein 7.4, Albumin 3.1L, Globulin 4.3, Albumin/Globulin Ratio 0.7L Height (Feet): 5 Height (Inches): 4.00 Weight (Pounds): 181 General Appearance: lethargic EENT: normal ENT inspection Neck: normal alignment Cardiovascular: normal peripheral pulses, normal rate, regular rhythm Respiratory/Chest: chest wall non-tender, lungs clear, normal breath sounds Abdomen: normal bowel sounds, non tender, soft Extremities: normal inspection Edema: no edema noted Arm (L), no edema noted Arm (R), no edema noted Leg (L), no edema noted Leg (R), no edema noted Pedal (L), no edema noted Pedal (R), no edema noted Generalized Neurologic: motor weakness Skin: normal pigmentation, warm/dry Elan Petersen DO Mar 07, 2018 09:35
[2018-03-07] MEDS: Colistin for inhalation INH SCH (09:40)
[2018-03-07 11:43] VITALS: BP 113/79
[2018-03-07] MEDS: D5 1/2NS w/KCL 10meq 1,000 ML IV SCH (11:57)
[2018-03-07] MEDS ORDERED: NS 275ml ONE (14:12)
[2018-03-07] MEDS ORDERED: 1/2 NS 1000ml IV ONE (14:12)
[2018-03-07] MEDS ORDERED: Tubing IV Secondary IV ONE (14:12)
--- NOTE | 2018-03-10 11:41 | Discharge Summary ---
Discharge Summary Discharge Summary _ DATE OF ADMISSION: 02/26/2018 DATE OF DISCHARGE: 03/07/2018 REASON FOR ADMISSION: 67 years old male with past medical history significant for chronic respiratory failure, ventilator dependent with tracheostomy status, diabetes mellitus, hypertension, COPD/emphysema, dysphagia, encephalopathy, history of colon cancer , status post hemicolectomy, was sent from the [facility] evaluation due to shortness of breath for one week. Patient reported throat tightness and difficulty with deep breathing. He denied chest pain . No fever, no chills . Vital signs revealed no fever.] Laboratory workup was essentially stable. Chest x-ray revealed possible right upper lobe infiltrate CT neck revealed no definite acute process. Appropriate tracheostomy position. No evidence of foreign body. CT of the chest revealed right upper lobe pneumonia. Patient admitted with diagnoses of acute and chronic respiratory failure, stridor, sepsis, nosocomial pneumonia, hypertension, diabetes ,COPD/emphysema. CONSULTANTS: pulmonary Dr. Andrade ID specialist [facility] manager credit collections Dr. Srivastava [facility] COURSE: Patient admitted to [facility]. Ventilator support and tracheostomy care provided. Pulmonary toilet provided as needed. Tracheostomy was changed. ABG after tracheostomy change was stable on current settings. Patient initially started on empiric antibiotics. ID specialist closely followed. Sputum culture revealed Pseudomonas MDR and Serratia. Blood culture were negative. Antibiotic regimen optimized based on sensitivity as per ID specialist. Patient need to complete the treatment for pneumonia at the facility. Strict aspiration precautions were maintained. DVT prophylaxis provided. Antitussive provided as needed. Venous duplex bilateral lower extremity revealed no evidence of acute DVT. Patient initially had stable renal parameters. However he developed acute renal failure . Nephrology consult was obtained. Patient started on IV fluids. Renal parameters and electrolytes were closely monitored, electrolytes were corrected, and nephrotoxins were avoided. Renal ultrasound revealed normal bilateral kidneys echogenicity. No hydronephrosis. According to manager credit collections, acute renal failure was likely secondary to hypotension and /or nephrotoxic drug, i.e. Vancomycin level was high, and was on hold. Patient was off antihypertensive medication, blood pressure was stable. Hemoglobin A1c 5.8. Pain management was addressed as needed, and pain was controlled. Bowel regimen instituted. Patient with history of colon cancer. CEA within normal limits. Hemoglobin and hematocrit remained at the baseline. Supportive care provided. Patient clinically improved and was ready for discharge back to [facility] for continuation of care. FINAL DIAGNOSES: Acute and chronic respiratory failure Stridor, status post tracheostomy change Probably sepsis Nosocomial pneumonia with Pseudomonas MDR and Serratia COPD/emphysema Chronic respiratory failure with ventilator dependency and tracheostomy status Acute renal failure History of hypertension Diabetes mellitus Colon cancer , status post hemicolectomy DISCHARGE MEDICATIONS: List of medication was sent to accepting facility DISCHARGE INSTRUCTIONS: Patient was discharged to the senior living facility. Follow up with medical doctor at the facility. Katia Sequeira NP Mar 10, 2018 11:41
== END 2018-03-07 14:13 | DRG 870 ==
LOC: EDBD 18:11 → EMR 19:17 → 2W 19:20 → EDBEDREQ 20:41 → 2W 02-28 16:30
PROC: 5A1955Z Respiratory Ventilation, Greater than 96 Consecutive Hours (ICD-10-PCS; principal; 2018-02-26)
DX: A41.9 Sepsis, unspecified organism (principal); J96.20 Acute and chronic respiratory failure, unspecified whether with hypoxia or hypercapnia; J15.1 Pneumonia due to Pseudomonas; J44.0 Chronic obstructive pulmonary disease with (acute) lower respiratory infection; N17.9 Acute kidney failure, unspecified; Z99.11 Dependence on respirator [ventilator] status; E11.9 Type 2 diabetes mellitus without complications; Z93.1 Gastrostomy status; Z93.0 Tracheostomy status; I10 Essential (primary) hypertension; Z85.038 Personal history of other malignant neoplasm of large intestine; I95.9 Hypotension, unspecified
CPT/HCPCS: 36415; 36600; 70491; 71045; 71260; 76770; 80048; 80053; 80069; 80202; 81003; 82164; 82248; 82378; 82550; 82553; 82607; 82728; 82746; 82803; 82977; 83036; 83540; 83550; 83605; 83690; 83735; 83880; 84100; 84300; 84443; 84484; 84550; 85007; 85025; 85610; 85651; 85730; 86140; 87040; 87070; 87181; 87205; 89050; 93005; 93306; 93970; 94002; 94003; 94640; 94664; 99285; J7620; J8499

== ENCOUNTER 2018-04-29 14:10 | Inpatient (IN) | payer MEDICARE, OTHER, MEDICAID ==
[~2018-04-29] VITALS: Ht 195.6 cm; Wt 76.7 kg
[~2018-04-29 14:10] MED LIST changes: +PROTONIX40 MG ORAL; +ZOFRAN4 M3 ORAL
[2018-04-29] MEDS ORDERED: CHLORPROMAZINE25 MG PO (14:30)
--- NOTE | 2018-04-29 14:48 | Emergency Room Report ---
History of Present Illness General Chief Complaint: General Complaint Source: Medical Record Present Illness HPI 67M trach dependent SNF patient referred for tachycardia. Pt. can talk and says that he would not have come in, that he feels at his baseline. Pt. is in SNF due to general debility, trach, severe COPD. According to patient no new issues. No fever, no significant cough, no vomiting, no abd pain, no dysuria, no diarrhea, no recent antibiotics. He says he isn't walking due to general weakness/debility but can move legs ok. No trauma no headache, neck pain. 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 Hx Gastrointestinal Problems: No - GERD Hx Dialysis: No - acute kidney disease Hx Neurological Problems: No - Metabolic encephalopathy, muscle weakness Hx Concentration Difficulty: Yes Hx Dysphasia: Yes - dysphagia Hx Weakness: Yes Review of Systems Constitutional: Reports: no symptoms, see HPI, weakness Eye: Reports: no symptoms ENT: Reports: no symptoms Respiratory: Reports: no symptoms Cardiovascular: Reports: no symptoms Gastrointestinal: Reports: no symptoms Genitourinary: Reports: no symptoms Musculoskeletal: Reports: no symptoms Skin: Reports: no symptoms Psychiatric: Reports: no symptoms Neurological: Reports: no symptoms Endocrine: Reports: no symptoms Hematologic/Lymphatic: Reports: no symptoms Allergic: Reports: no symptoms All Other Systems: negative except mentioned in HPI Physical Exam Vital Signs Date Time Temp Pulse Resp B/P (MAP) Pulse Ox O2 Delivery O2 Flow Rate FiO2 04/29/18 14:04 98.8 123 20 106/68 100 Mechanical Ventilator 5.0 04/29/18 14:15 40 Sp02 EP Interpretation: reviewed, other - trach, 100% on 40% General Appearance: no apparent distress, alert, GCS 15, other - trach Head: normocephalic, atraumatic Eyes: bilateral eye normal inspection, bilateral eye PERRL, bilateral eye EOMI ENT: normal ENT inspection, hearing grossly normal, normal pharynx, no angioedema, normal voice, moist mucus membranes Neck: full range of motion, supple, no meningismus, no bony tend, tracheotomy Respiratory: normal breath sounds, no respiratory distress, no retraction, no accessory muscle use, no wheezing, other - mild scattered rhonchi, RR22 Cardiovascular #1: normal inspection, no edema, tachycardia, other - tachy about 120 Gastrointestinal: normal inspection, normal bowel sounds, non tender, soft, no mass, non-distended Musculoskeletal: normal range of motion, other - good ROM all four Neurologic: normal inspection, alert, oriented x3, responsive, motor strength/ tone normal Psychiatric: normal inspection, judgement/insight normal, memory normal Suicide Risk Assessment: Suicidal Ideation: No Had intent to initiate attempt: No Pt's plan for suicide attempt: No Has means to complete attempt: No Skin: normal inspection, normal color, no rash, warm/dry Medical Decision Making Diagnostic Impression: Primary Impression: Fever Additional Impression: COPD (chronic obstructive pulmonary disease) ER Course persistent tachycardia noted, 100% on 40% will lower to 30% and see suction clear/white sputum no obvious reason for tachy, will also check labs, r/o UTI, dehydration, elevated d-dimer does not appear to be septic fever noted, 101.3 etiology of tachy EKG Diagnostic Results EKG Time: 14:49 Rate: tachycardiac ST Segments: no acute changes Other Impression no S I Q III inverted T III no signs ACS ASA given to the pt in ED: No Rhythm Strip Diag. Results Rhythm Strip Time: 14:49 EP Interpretation: yes Rhythm: other - sinus tachy 123 Chest X-Ray Diagnostic Results Chest X-Ray Diagnostic Results : Chest X-Ray Ordered: Yes # of Views/Limited/Complete: 1 View Indication: Shortness of Breath Interpretation: no consolidation, no pneumothorax, no acute cardiopulmonary disease Impression: Other - tracheostomy Last Vital Signs Date Time Temp Pulse Resp B/P (MAP) Pulse Ox O2 Delivery O2 Flow Rate FiO2 04/29/18 14:20 124 25 40 04/29/18 14:15 Mechanical Ventilator 04/29/18 14:04 98.8 106/68 100 5.0 Disposition: ADMITTED INPATIENT Referrals: Elan Petersen DO (PCP) Xavi Oliver M.D. Apr 29, 2018 14:48
[2018-04-29 14:56] LABS: BASOPHILS % (AUTO) 1.4 % (0.0-2.0); EOSINOPHILS % (AUTO) 0.2 % (0.0-3.0); HEMATOCRIT 42.4 % (42.0-52.0); LYMPHOCYTES % (AUTO) 9.1 % (20.0-45.0); MEAN CORPUSCULAR VOLUME 86 FL (80-99); MONOCYTES % (AUTO) 11.2 % (1.0-10.0); NEUTROPHILS % (AUTO) 77.9 % (45.0-75.0); PLATELET COUNT 261 K/UL (150-450); RED BLOOD COUNT 4.94 M/UL (4.70-6.10); RED CELL DISTRIBUTION WIDTH 11.7 % (11.6-14.8); WHITE BLOOD COUNT 15.7 K/UL (4.8-10.8)
[2018-04-29 15:05] VITALS: BP 100/87
[2018-04-29 15:09] LABS: APPEARANCE,URINE CLEAR; BILIRUBIN, URINE NEGATIVE (NEGATIVE); COLOR,URINE YELLOW; GLUCOSE, URINE (UA) NEGATIVE (NEGATIVE); KETONES,URINE 1+ (NEGATIVE); LEUKOCYTE ESTERASE ,URINE 1+ (NEGATIVE); NITRITE,URINE NEGATIVE (NEGATIVE); PH,URINE 5 (4.5-8.0); PROTEIN,URINE 2+ (NEGATIVE); UROBILINOGEN,URINE 4 MG/DL (0.0-1.0)
[2018-04-29 15:14] LABS: ANION GAP 10 mmol/L (5-15); BLOOD UREA NITROGEN 18 mg/dL (7-18); CALCIUM 9.5 MG/DL (8.5-10.1); CARBON DIOXIDE 27 MMOL/L (21-32); CHLORIDE 102 MMOL/L (98-107); CREATININE 1.3 MG/DL (0.55-1.30); POTASSIUM 4.6 MMOL/L (3.5-5.1); SODIUM 139 MMOL/L (136-145)
[2018-04-29 15:23] VITALS: BP 131/80
[2018-04-29 15:29] LABS: ALANINE AMINOTRANSFERASE 17 U/L (12-78); ALBUMIN 2.9 G/DL (3.4-5.0); ALBUMIN/GLOBULIN RATIO 0.5 (1.0-2.7); ALKALINE PHOSPHATASE 153 U/L (46-116); ASPARTATE AMINO TRANSFERASE 25 U/L (15-37); BILIRUBIN,TOTAL 1.4 MG/DL (0.2-1.0)
[2018-04-29 15:30] LABS: BILIRUBIN,DIRECT 0.2 MG/DL (0.0-0.3)
[2018-04-29] MEDS ORDERED: Albuterol/Ipratropium 3ml neb HHN ONE (15:30)
[2018-04-29] MEDS ORDERED: Azithromycin 500 MG in NS 275 ML IV ONE (15:30)
[2018-04-29] MEDS ORDERED: cefTRIAXone 1 GM in NS 55 ML IVPB ONE (15:30)
[2018-04-29 16:22] VITALS: BP 108/78
--- NOTE | 2018-04-29 16:28 | Diagnostic Imaging Report ---
Indication: Chest pain Technique: One view of the chest Comparison: 03/02/2018 Findings: Tracheostomy is again demonstrated. The lungs and pleural spaces are clear. Findings are unchanged Impression: No acute process
[2018-04-29] MEDS ORDERED: Miralax 17gm pkt ORAL PRN (17:15)
[2018-04-29 17:38] VITALS: BP 155/87
--- NOTE | 2018-04-29 18:13 | Consultation ---
Consult Note Consult Note # [id number] Anibal Trujillo MD Apr 29, 2018 18:13
[2018-04-29 20:00] VITALS: BP 129/79
--- NOTE | 2018-04-29 20:00 | Cardiology Progress Note ---
Assessment/Plan Assessment/Plan The patient is seen and examined, full consult note will be dictated. Objective Last 24 Hour Vital Signs Date Time Temp Pulse Resp B/P (MAP) Pulse Ox O2 Delivery O2 Flow Rate FiO2 04/29/18 18:49 112 24 30 04/29/18 18:08 Mechanical Ventilator 30.0 04/29/18 17:38 98.1 120 23 155/87 (109) 100 04/29/18 17:13 100.8 120 22 108/78 100 Mechanical Ventilator 5.0 30 04/29/18 17:05 124 24 30 04/29/18 16:22 120 22 108/78 100 Mechanical Ventilator 30 04/29/18 16:03 100.8 04/29/18 16:03 126 23 Mechanical Ventilator 5.0 30 04/29/18 15:45 130 24 100 Mechanical Ventilator 30 04/29/18 15:32 134 23 100 Mechanical Ventilator 30 04/29/18 15:23 101.4 134 26 131/80 98 Mechanical Ventilator 30 04/29/18 15:11 135 22 30 04/29/18 15:05 133 24 100/87 100 Mechanical Ventilator 30 04/29/18 15:04 30 04/29/18 14:20 124 25 40 04/29/18 14:15 124 25 Mechanical Ventilator 40 04/29/18 14:04 98.8 123 20 106/68 100 Mechanical Ventilator 5.0 Laboratory Tests Test 04/29/18 14:30 04/29/18 14:53 White Blood Count 15.7 K/UL (4.8-10.8) H Red Blood Count 4.94 M/UL (4.70-6.10) Hemoglobin 14.0 G/DL (14.2-18.0) L Hematocrit 42.4 % (42.0-52.0) Mean Corpuscular Volume 86 FL (80-99) Mean Corpuscular Hemoglobin 28.4 PG (27.0-31.0) Mean Corpuscular Hemoglobin Concent 33.1 G/DL (32.0-36.0) Red Cell Distribution Width 11.7 % (11.6-14.8) Platelet Count 261 K/UL (150-450) Mean Platelet Volume 7.9 FL (6.5-10.1) Neutrophils (%) (Auto) 77.9 % (45.0-75.0) H Lymphocytes (%) (Auto) 9.1 % (20.0-45.0) L Monocytes (%) (Auto) 11.2 % (1.0-10.0) H Eosinophils (%) (Auto) 0.2 % (0.0-3.0) Basophils (%) (Auto) 1.4 % (0.0-2.0) D-Dimer 0.51 mg/L FEU (0.00-0.49) H Sodium Level 139 MMOL/L (136-145) Potassium Level 4.6 MMOL/L (3.5-5.1) Chloride Level 102 MMOL/L (98-107) Carbon Dioxide Level 27 MMOL/L (21-32) Anion Gap 10 mmol/L (5-15) Blood Urea Nitrogen 18 mg/dL (7-18) Creatinine 1.3 MG/DL (0.55-1.30) Estimat Glomerular Filtration Rate > 60 mL/min (>60) Glucose Level 107 MG/DL (74-106) H Lactic Acid Level 1.50 mmol/L (0.4-2.0) Calcium Level 9.5 MG/DL (8.5-10.1) Total Bilirubin 1.4 MG/DL (0.2-1.0) H Direct Bilirubin 0.2 MG/DL (0.0-0.3) Aspartate Amino Transf (AST/SGOT) 25 U/L (15-37) Alanine Aminotransferase (ALT/SGPT) 17 U/L (12-78) Alkaline Phosphatase 153 U/L (46-116) H Troponin I 0.000 ng/mL (0.000-0.056) Total Protein 8.8 G/DL (6.4-8.2) H Albumin 2.9 G/DL (3.4-5.0) L Globulin 5.9 g/dL Albumin/Globulin Ratio 0.5 (1.0-2.7) L Urine Color Yellow Urine Appearance Clear Urine pH 5 (4.5-8.0) Urine Specific [place] 1.020 (1.005-1.035) Urine Protein 2+ (NEGATIVE) H Urine Glucose (UA) Negative (NEGATIVE) Urine Ketones 1+ (NEGATIVE) H Urine Blood 5+ (NEGATIVE) H Urine Nitrite Negative (NEGATIVE) Urine Bilirubin Negative (NEGATIVE) Urine Urobilinogen 4 MG/DL (0.0-1.0) H Urine Leukocyte Esterase 1+ (NEGATIVE) H Urine RBC 5-10 /HPF (0 - 0) H Urine WBC 0-2 /HPF (0 - 0) Urine Squamous Epithelial Cells None /LPF (NONE/OCC) Urine Bacteria Few /HPF (NONE) Jose Pandya MD Apr 29, 2018 20:00
[2018-04-29] MEDS: Vancomycin 750mg/NS 250ml IVPB SCH (20:55)
[2018-04-29] MEDS: Morphine Sulfate 4mg/ml Inj (IV/IM USE ONLY) IVP PRN (20:56)
[2018-04-29] MEDS: Heparin 5000 units/ml inj SUBQ SCH (20:57)
[2018-04-29] MEDS: Meropenem 1 GM in NS 55 ML IVPB SCH (22:11)
[2018-04-29] MEDS: LORazepam Inj 2mg/ml 1ml IV PRN (22:11)
--- NOTE | 2018-04-29 22:30 | Consultation ---
DATE OF CONSULTATION: 04/29/2018 INFECTIOUS DISEASE CONSULTATION CONSULTING PHYSICIAN: Anibal Trujillo M.D. REFERRING PHYSICIAN: Elan Petersen D.O. REASON FOR CONSULTATION: Evaluation of the patient for pneumonia, sepsis, and antibiotic management. HISTORY OF PRESENT ILLNESS: The patient is a 67-year-old male with multiple medical problems, as listed above, who was brought to this medical center due to fever, chills, and chest congestion. The patient was found to have white count of 15.7. An Infectious Disease consultation has been requested for further evaluation of the patient and antibiotic management. PAST MEDICAL HISTORY: Significant for, 1. Pneumonia. 2. MDR Pseudomonas/MRSA. 3. History of coag-negative staph and Acinetobacter bacteremia (December 2017). 4. History of diabetes. 5. Hypertension. 6. Asthma. 7. History of colon cancer, status post hemicolectomy. 8. Right lower extremity DVT. 9. Pulmonary nodules. MEDICATIONS: Vancomycin and meropenem. ALLERGIES: No known drug allergies. SOCIAL HISTORY: The patient lives in a fci. FAMILY HISTORY: Unavailable. REVIEW OF SYSTEMS: Limited as mentioned above. PHYSICAL EXAMINATION: VITAL SIGNS: Temperature 100.8, pulse 86, respiratory rate 18, and blood pressure 155/87. HEENT: No pale conjunctivae. No icterus. NECK: Trach in place. CHEST: Coarse breathing sounds. HEART: S1 and S2. ABDOMEN: Soft and nontender. EXTREMITIES: No cyanosis. GENITOURINARY: Condom catheter in place. NEUROLOGIC: Awake and alert. LABORATORY AND DIAGNOSTIC DATA: White blood cells 17, hemoglobin 14, and platelets 261,000. UA, 5 to 10 white blood cells. BUN 18 and creatinine 1.3. ALT and AST are unremarkable. Alkaline phosphatase 153. Blood, sputum, and urine cultures pending. Chest x-ray, no acute process. ASSESSMENT: The patient is a 67-year-old male with, 1. Fever. 2. Leukocytosis. 3. Rule out probable bacteremia. 4. Rule out probable urinary tract infection. 5. Rule out hospital-acquired pneumonia (despite of negative chest x-ray). 6. Probable sepsis. PLAN: 1. We will continue the patient on vancomycin and meropenem day #1. 2. Monitor CBC. 3. Monitor BMP. 4. Monitor cultures (blood, urine, and sputum). 5. Monitor chest x-ray. 6. Continue respiratory support. 7. Based on the patient's clinical course and labs, we will do further recommendations. Thank you, Dr. Elan Petersen, for allowing me to participate in the care of this patient. I will follow the patient with you during this hospitalization. Anibal Trujillo M.D. DR: ERIN JOB#: [id number] CC:
[2018-04-29] MEDS: dilTIAZem HCl 30mg tab ORAL SCH (23:12)
[2018-04-30] VITALS: BP 128/83
[2018-04-30] MEDS: LORazepam Inj 2mg/ml 1ml IV PRN ×2 (00:15→23:25)
[2018-04-30] MEDS: Albuterol/Ipratropium 3ml neb HHN PRN ×3 (01:51→10:38)
[2018-04-30 04:00] VITALS: BP 140/72
--- NOTE | 2018-04-30 05:15 | Consultation ---
DATE OF CONSULTATION: 04/29/2018 CARDIOLOGY CONSULTATION CONSULTING PHYSICIAN: Jose Pandya M.D. REFERRING PHYSICIAN: Elan Petersen D.O. REASON FOR CONSULTATION: Management of tachycardia. HISTORY OF PRESENT ILLNESS: The patient is an very unfortunate 67-year-old gentleman with ventilatory-drive respiratory failure, status post tracheostomy tube placement, history of dysphagia status post PEG placement, resident of a senior living facility, history of metabolic encephalopathy, history of malignant neoplasm of right intestine, diabetes mellitus, hypertension, DVT, anemia, and dysphagia who presents for evaluation and management of shortness of breath and tachycardia. The patient also has trouble with general debilitation. At the time of arrival to the hospital, he did not have any complaints of fever, cough, nausea, vomiting, or abdominal pain. He is unable to walk due to generalized weakness and debility. Initial blood pressure in the emergency department was 106/68 mmHg, heart rate was 123 beats per minute. A 12-lead electrocardiogram was significant for sinus rhythm at a rate of 61. The patient was brought in and underwent an initial workup including labs, which showed evidence of leukocytosis as well as elevated D-dimer. Chest x-ray showed no acute cardiopulmonary disease. Troponin I level was also within normal limits. The patient was admitted to [facility] for further evaluation and management of possible sepsis. Cardiology consultation was done to assess and manage tachycardia. PAST MEDICAL HISTORY: 1. DVT. 2. Anemia. 3. Ventilatory-drive respiratory failure, status post chest tube placement. 4. Hypertension. 5. Diabetes mellitus. 6. Colon cancer. 7. Gastroesophageal reflux disease. 8. Renal failure. 9. Metabolic encephalopathy. 10. Dysphagia. ALLERGIES: No known drug allergies. REVIEW OF SYSTEMS: HEENT: Denies any headache, diplopia, or blurred vision. CONSTITUTIONAL: Denies any fever, chills, night sweats, or weight loss. Complained of generalized weakness and debilitation. CARDIOVASCULAR: Denies any chest pain, shortness breath, PND, orthopnea, or leg swelling. PULMONARY: Denies any cough, hemoptysis, or wheezing. GASTROINTESTINAL: Denies any nausea, vomiting, diarrhea, constipation, abdominal pain, or GI bleed. GENITOURINARY: Denies any hematuria, dysuria, or incontinence. NEUROLOGIC: Inability to walk, bilateral lower extremity weakness. No altered speech, signs of lateralizations or sensory deficit. PAST SURGICAL HISTORY: Tracheostomy tube placement. FAMILY HISTORY: No premature coronary artery disease in first-degree relatives. SOCIAL HISTORY: Denies any tobacco, alcohol, or illicit drug use. MEDICATIONS: List of medications including acetaminophen 20 mL q.4 h. p.r.n. fever, chills, or mild pain; albuterol 3 mL inhaler q.6 h. p.r.n. shortness of breath; Norvasc 5 mg p.o. daily; Dulcolax 10 mg rectal p.r.n. constipation; ceftazidime 1 g IJ every 8 hours for five days; chlorpromazine mg p.o. q.8 h.; UTI-Stat liquid 3875 mg p.o. daily; Benadryl 25 mg q.8 h. p.r.n. itching; diphenoxylate-atropine one tablet q.4 h. p.r.n. diarrhea; Colace 100 mg p.o. daily; folic acid 1 mg p.o. daily; guaifenesin 5 mL q.6 h. p.r.n. cough; [place] 5/325 one tablet q.6 h. p.r.n. pain; levofloxacin 500 mg p.o. daily for five days; milk of magnesia 30 mL nightly p.r.n. constipation; multivitamin 15 mL p.o. daily; [place] Enema 118 mL rectal p.r.n. constipation; Zofran 4 mg q.6 h. p.r.n. nausea and vomiting; Protonix 40 mg p.o. daily; Zosyn 3.375 g IV piggyback q.8 h.; MiraLAX 17 g p.o. daily p.r.n. constipation; promethazine 5 mL oral q.6 h. p.r.n. cough; Zantac 150 mg p.o. daily; vancomycin 1 g IV piggyback q.12 h. for 5 days; vitamin C 500 mg two daily; and zinc sulfate 220 mg p.o. daily. PHYSICAL EXAMINATION: VITAL SIGNS: Blood pressure at the time of arrival to the hospital 106/68, respirations 20, pulse of 123, temperature 98.8 degrees Fahrenheit, and O2 saturation 100% on mechanical ventilator or FiO2 of 40%. GENERAL: The patient is a very unfortunate 67-year-old gentleman, in no apparent respiratory distress. Awake and alert. HEENT: Atraumatic and normocephalic. Anicteric. Pupils are equal, round, and reactive to light and accommodation. Conjunctival pallor. NECK: Presence of a tracheostomy tube. No carotid bruit. Carotid upstrokes 2+ bilaterally. CVS: Normal S1, S2. Regular rate and rhythm. Tachycardic. No murmurs, gallops, or rubs. LUNGS: Expiratory wheezing throughout both lungs. Diminished breath sounds throughout. ABDOMEN: Soft, nontender, and nondistended. No hepatosplenomegaly. Positive bowel sounds. EXTREMITIES: No evidence of edema, clubbing, or cyanosis. LABORATORY FINDINGS: WBC is 15.7, hemoglobin of 14.0, hematocrit of 42.2, and platelet count 261. Sodium is 139, potassium 4.3, chloride 102, bicarbonate is 27, BUN of 18, creatinine 1.3, glucose 107, and calcium 9.5. Troponin I is 0.00. D-dimer 0.51. Chest x-ray showed no acute cardiopulmonary disease with the presence of tracheostomy tube. A 12-lead electrocardiogram, sinus rhythm, heart rate of 61 with left axis deviation, cannot rule out septal wall infarct and nonspecific ST and T-wave abnormalities. ASSESSMENT AND PLAN: The patient is a very unfortunate 67-year-old gentleman, seen in Cardiology consultation at the request of Dr. Petersen. 1. Dyspnea due to bronchial airway disease, most likely acute exacerbation of COPD. We will obtain 2D echocardiography for assessment of LV systolic and diastolic function as well as measuring pulmonary artery pressure. Further therapy and diagnostic decision will be based on results of 2D echocardiography. 2. Sinus tachycardia. I would like to consider calcium-channel marguerite. This is most likely due to hypoxemia or use of breathing treatment with combination. The patient may benefit from steroids intravenously. 3. History of diabetes mellitus. We will consider aspirin and statin for this patient. 4. Ventilatory-drive respiratory failure, status post tracheostomy tube placement. 5. History of DVT. 6. History of colon cancer. 7. History of GERD. 8. History of metabolic encephalopathy. I would like to thank Dr. Petersen for allowing me to participate in the care of this patient. Jose Pandya M.D. DR: LORAINE JOB#: [id number] CC:
[2018-04-30 05:30] LABS: HEMATOCRIT 39.2 % (42.0-52.0); HEMOGLOBIN 13.3 G/DL (14.2-18.0); MEAN CORPUSCULAR VOLUME 88 FL (80-99); PLATELET COUNT 204 K/UL (150-450); RED BLOOD COUNT 4.48 M/UL (4.70-6.10); RED CELL DISTRIBUTION WIDTH 11.8 % (11.6-14.8); WHITE BLOOD COUNT 17.8 K/UL (4.8-10.8)
[2018-04-30 05:43] LABS: ALBUMIN 2.8 G/DL (3.4-5.0); ANION GAP 10 mmol/L (5-15); BLOOD UREA NITROGEN 18 mg/dL (7-18); CALCIUM 9.5 MG/DL (8.5-10.1); CARBON DIOXIDE 28 MMOL/L (21-32); CHLORIDE 104 MMOL/L (98-107); CREATININE 1.1 MG/DL (0.55-1.30); PHOSPHORUS 3.3 MG/DL (2.5-4.9); POTASSIUM 4.2 MMOL/L (3.5-5.1); SODIUM 142 MMOL/L (136-145)
[2018-04-30] MEDS: Meropenem 1 GM in NS 55 ML IVPB SCH ×3 (05:43→21:27)
[2018-04-30] MEDS: dilTIAZem HCl 30mg tab ORAL SCH ×3 (05:43→16:57)
[2018-04-30 08:00] VITALS: BP 126/86
[2018-04-30] MEDS: Morphine Sulfate 4mg/ml Inj (IV/IM USE ONLY) IVP PRN ×2 (09:01→15:22)
[2018-04-30] MEDS: Vancomycin 750mg/NS 250ml IVPB SCH ×2 (09:04→20:04)
[2018-04-30] MEDS: Heparin 5000 units/ml inj SUBQ SCH ×2 (09:06→20:06)
--- NOTE | 2018-04-30 10:16 | Consultation ---
History of Present Illness General Date patient seen: Apr 30, 2018 Chief Complaint: General Complaint Present Illness HPI 67-year-old male with hx of Emphysema, trach and vent dependent.presented to ED for evaluation of shortness of breath and fever. Patient is complaining of tightness in his throat and difficulty with deep breaths. Denies chest pain. . Denies difficulty swallowing. No other aggravating relieving factors. Denies any other associated symptoms. His CXR was negative. He is admitted to [facility] for further treatment. Allergies: Coded Allergies: No Known Allergies (Unverified , 06/17/16) Medication History Scheduled Amlodipine Besylate (Norvasc), 5 MG ORAL DAILY, (Reported) Ceftazidime Pentahydrate (Ceftazidime), 1 GM IJ EVERY 8 HOURS Chlorpromazine Hcl (Chlorpromazine Hcl), 25 MG PO Q8HR, (Reported) Cran/Vitc/Mannose/Inulin/Brom (Uti-Stat Liquid), 3,875 MG PO DAILY, (Reported) Docusate Sodium* (Colace*), 100 MG ORAL DAILY, (Reported) Folic Acid* (Folic Acid*), 1 MG ORAL DAILY, (Reported) Levofloxacin (Levofloxacin*), 500 MG ORAL DAILY Multivitamin Liquid* (Multi-Delyn*), 15 ML ORAL DAILY, (Reported) Pantoprazole* (Protonix*), 40 MG ORAL DAILY, (Reported) Mprcnfmsfdkf-Vvbp-Rvypudxc,Iso (Zosyn 3.375 Gm Pre Mix-Bag), 3.375 GM IVPB EVERY 8 HOURS Ranitidine Hcl* (Zantac*), 150 MG ORAL DAILY, (Reported) Vit C/Ascorbate Ca/Ascorb Sod (Vitamin C 500 Mg/15 Ml Liquid), 500 MG GT DAILY, (Reported) Zinc Sulfate (Zinc Sulfate*), 220 MG ORAL DAILY, (Reported) Scheduled PRN Acetaminophen 160MG/5ML* (Acetaminophen*), 20 ML ORAL Q4HR PRN for Fever/ Headache/Mild Pain, (Reported) Albuterol Sulfate* (Albuterol Sulfate Hhn*), 3 ML INH Q6HR PRN for Shortness of breath, (Reported) Bisacodyl (Dulcolax), 10 MG RC for Constipation, (Reported) Diphenhydramine Hcl* (Benadryl*), 25 MG ORAL Q8HR PRN for Itching, (Reported) Diphenoxylate Hcl/Atropine (Diphenoxylate-Atropine Tablet), 1 EACH PO Q4HR PRN for Diarrhea, (Reported) Guaifenesin* (Guaifenesin), 5 ML ORAL Q6H PRN for For Cough, (Reported) Hydrocodone Bit/Acetaminophen 5-325* ([place] 5-325*), 1 TAB ORAL Q6H PRN for For Pain, (Reported) Hydrocodone Bit/Acetaminophen 5-325* ([place] 5-325*), 1 TAB ORAL Q6H PRN for For Pain, (Reported) Magnesium Hydroxide* (Milk Of Magnesia*), 30 ML ORAL QHS PRN for Constipation, ( Reported) Na Phos,M-B/Na Phos,Di-Ba* (Fleet Enema*), 118 ML RECTAL for Constipation, ( Reported) Ondansetron* (Zofran*), 4 MG ORAL Q6H PRN for Nausea & Vomiting, (Reported) Polyethylene Glycol 3350* (Miralax*), 17 GM ORAL DAILY PRN for Constipation, ( Reported) Promethazine HCl (Promethazine HCl), 5 ML ORAL Q6H PRN for For Cough, (Reported) Vancomycin Hcl (Vancomycin Hcl), 1 GM IVPB EVERY 12 HOURS PRN Miscellaneous Medications Vit C/Ascorbate Ca/Ascorb Sod (Vitamin C 500 Mg/15 Ml Liquid), 500 MG PO, ( Reported) Patient History Healthcare decision maker SANDRA BRAGG Resuscitation status Full Code Advanced Directive on File Yes Past Medical/Surgical History Past Medical/Surgical History: (1) HTN (hypertension) (2) Chronic respiratory failure (3) Adenocarcinoma of cecum (4) Empyema (5) DVT (deep venous thrombosis) (6) Lung abscess Review of Systems Respiratory: Reports: shortness of breath All Other Systems: negative except mentioned in HPI Physical Exam General Appearance: cachetic Lines, tubes and drains: peripheral HEENT: normocephalic, atraumatic Neck: non-tender, normal alignment, supple Respiratory/Chest: chest wall non-tender, decreased breath sounds, rhonchi - bilaterally Breasts: no masses Cardiovascular/Chest: normal peripheral pulses, normal rate, regular rhythm Abdomen: normal bowel sounds, non tender Genitourinary/Rectal: normal genital exam, normal rectal exam Skin Exam: normal pigmentation 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 Last 24 Hour Vital Signs Date Time Temp Pulse Resp B/P (MAP) Pulse Ox O2 Delivery O2 Flow Rate FiO2 04/30/18 09:31 98.0 04/30/18 08:48 128 21 30 04/30/18 08:00 Mechanical Ventilator 04/30/18 08:00 30 04/30/18 08:00 125 04/30/18 08:00 98.0 127 24 126/86 (99) 98 04/30/18 07:12 109 24 30 04/30/18 05:43 123 112/75 04/30/18 05:39 123 18 100 Mechanical Ventilator 30.0 30 04/30/18 05:28 104 22 30 04/30/18 05:25 125 22 98 Mechanical Ventilator 30 04/30/18 04:00 30 04/30/18 04:00 97.9 112 24 140/72 (94) 98 04/30/18 04:00 Mechanical Ventilator 04/30/18 03:33 102 04/30/18 03:24 104 22 30 04/30/18 02:00 126 22 99 Mechanical Ventilator 30 04/30/18 01:50 125 25 99 Mechanical Ventilator 30 04/30/18 01:29 128 23 30 04/30/18 00:00 98.5 131 26 128/83 (98) 100 04/30/18 00:00 Mechanical Ventilator 04/29/18 23:29 136 04/29/18 23:12 131 128/83 04/29/18 23:03 124 20 30 04/29/18 20:40 131 22 30 04/29/18 20:20 124 04/29/18 20:00 30 04/29/18 20:00 Mechanical Ventilator 04/29/18 20:00 98.4 134 28 129/79 (96) 100 04/29/18 18:49 112 24 30 04/29/18 18:08 Mechanical Ventilator 30.0 04/29/18 17:38 98.1 120 23 155/87 (109) 100 04/29/18 17:13 100.8 120 22 108/78 100 Mechanical Ventilator 5.0 30 04/29/18 17:05 124 24 30 04/29/18 16:22 120 22 108/78 100 Mechanical Ventilator 30 04/29/18 16:03 100.8 04/29/18 16:03 126 23 Mechanical Ventilator 5.0 30 04/29/18 15:45 130 24 100 Mechanical Ventilator 30 04/29/18 15:32 134 23 100 Mechanical Ventilator 30 04/29/18 15:23 101.4 134 26 131/80 98 Mechanical Ventilator 30 04/29/18 15:11 135 22 30 04/29/18 15:05 133 24 100/87 100 Mechanical Ventilator 30 04/29/18 15:04 30 04/29/18 14:20 124 25 40 04/29/18 14:15 124 25 Mechanical Ventilator 40 04/29/18 14:04 98.8 123 20 106/68 100 Mechanical Ventilator 5.0 Intake and Output 04/29/18 04/30/18 18:59 06:59 Intake Total 410.000 ml Balance 410.000 ml Intake Oral 50 ml IV Total 360.000 ml # Voids 1 Laboratory Tests Test 04/29/18 14:30 04/29/18 14:53 04/30/18 04:25 White Blood Count 15.7 K/UL (4.8-10.8) H 17.8 K/UL (4.8-10.8) H Red Blood Count 4.94 M/UL (4.70-6.10) 4.48 M/UL (4.70-6.10) L Hemoglobin 14.0 G/DL (14.2-18.0) L 13.3 G/DL (14.2-18.0) L Hematocrit 42.4 % (42.0-52.0) 39.2 % (42.0-52.0) L Mean Corpuscular Volume 86 FL (80-99) 88 FL (80-99) Mean Corpuscular Hemoglobin 28.4 PG (27.0-31.0) 29.8 PG (27.0-31.0) Mean Corpuscular Hemoglobin Concent 33.1 G/DL (32.0-36.0) 34.0 G/DL (32.0-36.0) Red Cell Distribution Width 11.7 % (11.6-14.8) 11.8 % (11.6-14.8) Platelet Count 261 K/UL (150-450) 204 K/UL (150-450) Mean Platelet Volume 7.9 FL (6.5-10.1) 7.1 FL (6.5-10.1) Neutrophils (%) (Auto) 77.9 % (45.0-75.0) H % (45.0-75.0) Lymphocytes (%) (Auto) 9.1 % (20.0-45.0) L % (20.0-45.0) Monocytes (%) (Auto) 11.2 % (1.0-10.0) H % (1.0-10.0) Eosinophils (%) (Auto) 0.2 % (0.0-3.0) % (0.0-3.0) Basophils (%) (Auto) 1.4 % (0.0-2.0) % (0.0-2.0) D-Dimer 0.51 mg/L FEU (0.00-0.49) H Sodium Level 139 MMOL/L (136-145) 142 MMOL/L (136-145) Potassium Level 4.6 MMOL/L (3.5-5.1) 4.2 MMOL/L (3.5-5.1) Chloride Level 102 MMOL/L (98-107) 104 MMOL/L (98-107) Carbon Dioxide Level 27 MMOL/L (21-32) 28 MMOL/L (21-32) Anion Gap 10 mmol/L (5-15) 10 mmol/L (5-15) Blood Urea Nitrogen 18 mg/dL (7-18) 18 mg/dL (7-18) Creatinine 1.3 MG/DL (0.55-1.30) 1.1 MG/DL (0.55-1.30) Estimat Glomerular Filtration Rate > 60 mL/min (>60) > 60 mL/min (>60) Glucose Level 107 MG/DL (74-106) H 103 MG/DL (74-106) Lactic Acid Level 1.50 mmol/L (0.4-2.0) Calcium Level 9.5 MG/DL (8.5-10.1) 9.5 MG/DL (8.5-10.1) Total Bilirubin 1.4 MG/DL (0.2-1.0) H Direct Bilirubin 0.2 MG/DL (0.0-0.3) Aspartate Amino Transf (AST/SGOT) 25 U/L (15-37) Alanine Aminotransferase (ALT/SGPT) 17 U/L (12-78) Alkaline Phosphatase 153 U/L (46-116) H Troponin I 0.000 ng/mL (0.000-0.056) Total Protein 8.8 G/DL (6.4-8.2) H Albumin 2.9 G/DL (3.4-5.0) L 2.8 G/DL (3.4-5.0) L Globulin 5.9 g/dL Albumin/Globulin Ratio 0.5 (1.0-2.7) L Urine Color Yellow Urine Appearance Clear Urine pH 5 (4.5-8.0) Urine Specific [place] 1.020 (1.005-1.035) Urine Protein 2+ (NEGATIVE) H Urine Glucose (UA) Negative (NEGATIVE) Urine Ketones 1+ (NEGATIVE) H Urine Blood 5+ (NEGATIVE) H Urine Nitrite Negative (NEGATIVE) Urine Bilirubin Negative (NEGATIVE) Urine Urobilinogen 4 MG/DL (0.0-1.0) H Urine Leukocyte Esterase 1+ (NEGATIVE) H Urine RBC 5-10 /HPF (0 - 0) H Urine WBC 0-2 /HPF (0 - 0) Urine Squamous Epithelial Cells None /LPF (NONE/OCC) Urine Bacteria Few /HPF (NONE) Differential Total Cells Counted 100 Neutrophils % (Manual) 87 % (45-75) H Lymphocytes % (Manual) 6 % (20-45) L Monocytes % (Manual) 7 % (1-10) Eosinophils % (Manual) 0 % (0-3) Basophils % (Manual) 0 % (0-2) Band Neutrophils 0 % (0-8) Platelet Estimate Adequate Platelet Morphology Normal Red Blood Cell Morphology Normal Phosphorus Level 3.3 MG/DL (2.5-4.9) Height (Feet): 6 Height (Inches): 5.00 Weight (Pounds): 168 Medications Current Medications Medications (Trade) Dose Ordered Sig/Shraddha Route PRN Reason Start Time Stop Time Status Last Admin Dose Admin Acetaminophen (Tylenol) 650 mg Q4H PRN ORAL FEVER 04/29/18 17:09 05/29/18 17:08 Albuterol/ Ipratropium (Albuterol/ Ipratropium) 3 ml Q4H PRN HHN Shortness of Breath 04/29/18 17:15 05/04/18 17:14 04/30/18 05:25 Dextrose (Dextrose 50%) 25 ml Q30M PRN IV Hypoglycemia 04/29/18 17:15 05/29/18 17:12 Dextrose (Dextrose 50%) 50 ml Q30M PRN IV hypoglycemia 04/29/18 17:15 05/29/18 17:14 Diltiazem HCl (Cardizem) 30 mg EVERY 6 HOURS ORAL 04/30/18 00:00 05/30/18 00:00 04/30/18 05:43 Heparin Sodium (Porcine) (Heparin 5000 units/ml) 5,000 units EVERY 12 HOURS SUBQ 04/29/18 21:00 05/29/18 20:59 04/30/18 09:06 Lidocaine (Xylocaine 1% MPF 5ml) 10 ml EVERY 4 HOURS PRN HHN cough 04/30/18 10:15 05/30/18 10:14 UNV Lorazepam (Ativan 2mg/ml 1ml) 2 mg Q2H PRN IV For Anxiety 04/29/18 17:15 05/06/18 17:14 04/30/18 00:15 Meropenem 1 gm/ Sodium Chloride 55 ml @ 110 mls/hr Q8HR IVPB 04/29/18 22:00 05/04/18 21:59 04/30/18 05:43 Methadone HCl (Methadone HCl) 5 mg EVERY 12 HOURS ORAL 04/30/18 10:15 05/07/18 10:14 UNV Morphine Sulfate (Morphine Sulfate) 4 mg Q4H PRN IVP Severe Pain (Pain Scale 7-10) 04/29/18 17:15 05/06/18 17:14 04/30/18 09:01 Ondansetron HCl (Zofran) 4 mg Q6H PRN IVP Nausea & Vomiting 04/29/18 17:15 05/29/18 17:14 Polyethylene Glycol (Miralax) 17 gm DAILYPRN PRN ORAL Constipation 04/29/18 17:15 05/29/18 17:14 Vancomycin HCl (Vanco rx to dose) 1 ea DAILY PRN MISC PER PHARM 04/29/18 17:15 05/29/18 17:14 Vancomycin/Sodium Chloride 250 ml @ 166.667 mls/hr Q12HR IVPB 04/29/18 21:00 05/04/18 20:59 04/30/18 09:04 Assessment/Plan Problem List: (1) Acute and chronic respiratory failure ICD Codes: J96.20 - Acute and chronic respiratory failure, unspecified whether with hypoxia or hypercapnia SNOMED: 14442985, 91628226 (2) Severe sepsis ICD Codes: A41.9 - Sepsis, unspecified organism; R65.20 - Severe sepsis without septic shock SNOMED: 32233852 (3) COPD exacerbation ICD Codes: J44.1 - Chronic obstructive pulmonary disease with (acute) exacerbation SNOMED: 160900935, 911346811 (4) Hypertension ICD Codes: I10 - Essential (primary) hypertension SNOMED: 48384980 Assessment/Plan respiratory treatment myers cultures iv abx trial of Licocain Id evaluation low dose Methadone titrate vent setting f/u pulse oximeter dvt prophylaxis. Demetrius Andrade MD Apr 30, 2018 10:16
[2018-04-30] MEDS: Lidocaine 1% MPF 10mg/ml 5ml HHN PRN ×2 (10:38→17:19)
[2018-04-30 12:00] VITALS: BP 140/80
[2018-04-30 16:00] VITALS: BP 97/71
--- NOTE | 2018-04-30 18:52 | Infectious Diseases Prog Note ---
Assessment/Plan Assessment/Plan ASSESSMENT: The patient is a 67-year-old male with, Fever Leukocytosis Rule out probable bacteremia. Rule out probable urinary tract infection. Rule out hospital-acquired pneumonia (despite of negative chestx-ray) Probable sepsis hx of Pneumonia MDR Pseudomonas/MRSA History of coag-negative staph and Acinetobacter bacteremia (December 2017) History of diabetes. Hypertension. Asthma History of colon cancer, status post hemicolectomy Right lower extremity DVT Pulmonary nodules PLAN: -continue the patient on vancomycin and meropenem day #2 -Monitor CBC -Monitor BMP -Monitor cultures (blood, urine, and sputum) -Monitor chest x-ray -Continue respiratory support Subjective Allergies: Coded Allergies: No Known Allergies (Unverified , 06/17/16) Subjective SOB Cough + Objective Vital Signs Last 24 Hour Vital Signs Date Time Temp Pulse Resp B/P (MAP) Pulse Ox O2 Delivery O2 Flow Rate FiO2 04/30/18 18:08 129 28 99 Mechanical Ventilator 30 04/30/18 17:20 30 04/30/18 17:19 134 20 98 Mechanical Ventilator 30 04/30/18 17:14 134 27 30 04/30/18 16:57 132 115/74 04/30/18 16:00 129 04/30/18 16:00 30 04/30/18 16:00 98.2 128 22 97/71 (80) 99 04/30/18 16:00 Mechanical Ventilator 04/30/18 15:52 98.2 04/30/18 15:01 132 23 30 04/30/18 13:00 128 18 30 04/30/18 12:09 121 140/80 04/30/18 12:00 30 04/30/18 12:00 121 04/30/18 12:00 98.1 123 24 140/80 (100) 97 04/30/18 12:00 Mechanical Ventilator 04/30/18 11:38 124 23 30 04/30/18 11:37 120 29 100 Mechanical Ventilator 30 04/30/18 10:40 126 28 100 Mechanical Ventilator 30.0 30 04/30/18 10:40 30 04/30/18 10:39 128 27 99 Mechanical Ventilator 30 04/30/18 08:48 128 21 30 04/30/18 08:00 Mechanical Ventilator 04/30/18 08:00 30 04/30/18 08:00 125 04/30/18 08:00 98.0 127 24 126/86 (99) 98 04/30/18 07:12 109 24 30 04/30/18 05:43 123 112/75 04/30/18 05:39 123 18 100 Mechanical Ventilator 30.0 30 04/30/18 05:28 104 22 30 04/30/18 05:25 125 22 98 Mechanical Ventilator 30 04/30/18 04:00 30 04/30/18 04:00 97.9 112 24 140/72 (94) 98 04/30/18 04:00 Mechanical Ventilator 04/30/18 03:33 102 04/30/18 03:24 104 22 30 04/30/18 02:00 126 22 99 Mechanical Ventilator 30 04/30/18 01:50 125 25 99 Mechanical Ventilator 30 04/30/18 01:29 128 23 30 04/30/18 00:00 98.5 131 26 128/83 (98) 100 04/30/18 00:00 Mechanical Ventilator 04/29/18 23:29 136 04/29/18 23:12 131 128/83 04/29/18 23:03 124 20 30 04/29/18 20:40 131 22 30 04/29/18 20:20 124 04/29/18 20:00 30 04/29/18 20:00 Mechanical Ventilator 04/29/18 20:00 98.4 134 28 129/79 (96) 100 04/29/18 18:49 112 24 30 Height (Feet): 6 Height (Inches): 5.00 Weight (Pounds): 168 HEENT: anicteric Respiratory/Chest: lungs clear Cardiovascular: regular rhythm Abdomen: no organomegaly Microbiology Date/Time Source Procedure Growth Status 04/29/18 15:00 Sputum Induced Gram Stain - Final Resulted 04/29/18 15:00 Sputum Induced Sputum Culture Pending Resulted 04/29/18 14:53 Urine,Clean Catch Urine Culture - Preliminary Resulted Laboratory Tests Test 04/30/18 04:25 White Blood Count 17.8 K/UL (4.8-10.8) H Red Blood Count 4.48 M/UL (4.70-6.10) L Hemoglobin 13.3 G/DL (14.2-18.0) L Hematocrit 39.2 % (42.0-52.0) L Mean Corpuscular Volume 88 FL (80-99) Mean Corpuscular Hemoglobin 29.8 PG (27.0-31.0) Mean Corpuscular Hemoglobin Concent 34.0 G/DL (32.0-36.0) Red Cell Distribution Width 11.8 % (11.6-14.8) Platelet Count 204 K/UL (150-450) Mean Platelet Volume 7.1 FL (6.5-10.1) Neutrophils (%) (Auto) % (45.0-75.0) Lymphocytes (%) (Auto) % (20.0-45.0) Monocytes (%) (Auto) % (1.0-10.0) Eosinophils (%) (Auto) % (0.0-3.0) Basophils (%) (Auto) % (0.0-2.0) Differential Total Cells Counted 100 Neutrophils % (Manual) 87 % (45-75) H Lymphocytes % (Manual) 6 % (20-45) L Monocytes % (Manual) 7 % (1-10) Eosinophils % (Manual) 0 % (0-3) Basophils % (Manual) 0 % (0-2) Band Neutrophils 0 % (0-8) Platelet Estimate Adequate Platelet Morphology Normal Red Blood Cell Morphology Normal Sodium Level 142 MMOL/L (136-145) Potassium Level 4.2 MMOL/L (3.5-5.1) Chloride Level 104 MMOL/L (98-107) Carbon Dioxide Level 28 MMOL/L (21-32) Anion Gap 10 mmol/L (5-15) Blood Urea Nitrogen 18 mg/dL (7-18) Creatinine 1.1 MG/DL (0.55-1.30) Estimat Glomerular Filtration Rate > 60 mL/min (>60) Glucose Level 103 MG/DL (74-106) Calcium Level 9.5 MG/DL (8.5-10.1) Phosphorus Level 3.3 MG/DL (2.5-4.9) Albumin 2.8 G/DL (3.4-5.0) L Current Medications Medications (Trade) Dose Ordered Sig/Shraddha Route PRN Reason Start Time Stop Time Status Last Admin Dose Admin Acetaminophen (Tylenol) 650 mg Q4H PRN ORAL FEVER 04/29/18 17:09 05/29/18 17:08 Albuterol/ Ipratropium (Albuterol/ Ipratropium) 3 ml Q4H PRN HHN Shortness of Breath 04/29/18 17:15 05/04/18 17:14 04/30/18 10:38 Dextrose (Dextrose 50%) 25 ml Q30M PRN IV Hypoglycemia 04/29/18 17:15 05/29/18 17:12 Dextrose (Dextrose 50%) 50 ml Q30M PRN IV hypoglycemia 04/29/18 17:15 05/29/18 17:14 Diltiazem HCl (Cardizem) 30 mg EVERY 6 HOURS ORAL 04/30/18 00:00 05/30/18 00:00 04/30/18 16:57 Heparin Sodium (Porcine) (Heparin 5000 units/ml) 5,000 units EVERY 12 HOURS SUBQ 04/29/18 21:00 05/29/18 20:59 04/30/18 09:06 Lidocaine (Xylocaine 1% MPF 5ml) 10 ml Q4H PRN HHN persistent cough 04/30/18 10:15 05/30/18 10:14 04/30/18 17:19 Lorazepam (Ativan 2mg/ml 1ml) 2 mg Q2H PRN IV For Anxiety 04/29/18 17:15 05/06/18 17:14 04/30/18 00:15 Meropenem 1 gm/ Sodium Chloride 55 ml @ 110 mls/hr Q8HR IVPB 04/29/18 22:00 05/04/18 21:59 04/30/18 13:21 Methadone HCl (Methadone HCl) 5 mg EVERY 12 HOURS ORAL 04/30/18 10:15 05/07/18 10:14 04/30/18 10:34 Morphine Sulfate (Morphine Sulfate) 4 mg Q4H PRN IVP Severe Pain (Pain Scale 7-10) 04/29/18 17:15 05/06/18 17:14 04/30/18 15:22 Ondansetron HCl (Zofran) 4 mg Q6H PRN IVP Nausea & Vomiting 04/29/18 17:15 05/29/18 17:14 Polyethylene Glycol (Miralax) 17 gm DAILYPRN PRN ORAL Constipation 04/29/18 17:15 05/29/18 17:14 Vancomycin HCl (Vanco rx to dose) 1 ea DAILY PRN MISC PER PHARM 04/29/18 17:15 05/29/18 17:14 Vancomycin/Sodium Chloride 250 ml @ 166.667 mls/hr Q12HR IVPB 04/29/18 21:00 05/04/18 20:59 04/30/18 09:04 Anibal Trujillo MD Apr 30, 2018 18:52
--- NOTE | 2018-04-30 19:15 | History and Physical Report ---
DATE OF ADMISSION: 04/29/2018 TIME SEEN: At 1 p.m. CONSULTANTS: 1. Demetrius Andrade M.D. 2. Anibal Trujillo M.D. 3. Jose Pandya M.D. CHIEF COMPLAINT: Respiratory failure, fever, sepsis, weakness, tachycardia. BRIEF HISTORY: This is a 67-year-old male from [facility], with history of respiratory failure, trach. The patient came to [place] last night with history of weak, fever, sepsis, short of breath. The patient admitted with the above, admitted to [facility] for further care. Currently, on trach and vent, asleep in bed, not talking much. REVIEW OF SYSTEMS: Unavailable. PAST MEDICAL HISTORY: Respiratory failure, COPD, encephalopathy, acute renal failure. PAST SURGICAL HISTORY: Trach. ALLERGIES: Denies. MEDICATIONS: Include vancomycin, methadone, amlodipine, diltiazem, meropenem, albuterol, morphine, polyethylene glycol, lorazepam, Zofran, Tylenol. SOCIAL HISTORY: Unable to obtain secondary to the patient's condition. PHYSICAL EXAMINATION: GENERAL: Lethargic trach, vent, nonverbal. VITAL SIGNS: Temperature is 98 degrees, pulse 121, respirations 23, blood pressure 140/80. CARDIOVASCULAR: No murmur. LUNGS: Poor air exchange. ABDOMEN: Bowel sounds distant. EXTREMITIES: No cyanosis, clubbing, or edema. NEUROLOGIC: The patient is flaccid in bed, not following directions. LABORATORY AND DIAGNOSTIC DATA: Labs at this time show white count 17, hemoglobin 13, hematocrit 39, otherwise CBC is normal. BMP shows BMP is normal. Albumin is 2.8. Troponin 0.00. Urinalysis, 1+ leukocyte esterase. ASSESSMENT: Respiratory failure, UTI, sepsis, fever, shortness of breath, weakness, tachycardia, COPD, encephalopathy, acute renal failure history, and malnutrition. PLAN: Vent per Pulmonary. Antibiotics per Infectious Disease. Blood pressure and blood sugar control. Dietary followup. CBC and BMP in the morning. Elan Petersen D.O. DR: Ayla JOB#: [id number] CC:
[2018-04-30 20:00] VITALS: BP 122/76
[2018-04-30] MEDS ORDERED: Vancomycin 1 GM in D5W 275 ML IV SCH (23:00)
--- NOTE | 2018-04-30 23:58 | Cardiology Progress Note ---
Assessment/Plan Assessment/Plan 1. Dyspnea due to bronchial airway disease, most likely acute exacerbation of COPD. 2D echocardiography shows normal LVEF. 2. Sinus tachycardia, continue calcium-channel marguerite. This is most likely due to hypoxemia or use of breathing treatment with combination. The patient may benefit from steroids intravenously. 3. History of diabetes mellitus. We will consider aspirin and statin for this patient. 4. Ventilatory-drive respiratory failure, status post tracheostomy tube placement. 5. History of DVT. 6. History of colon cancer. 7. History of GERD. 8. History of metabolic encephalopathy. Subjective Subjective Multifocal atrial tachycardia at rate of 122. Objective Last 24 Hour Vital Signs Date Time Temp Pulse Resp B/P (MAP) Pulse Ox O2 Delivery O2 Flow Rate FiO2 04/30/18 23:07 121 27 30 04/30/18 20:44 133 27 30 04/30/18 20:00 98.1 122 20 122/76 (91) 100 04/30/18 20:00 132 04/30/18 20:00 Mechanical Ventilator 04/30/18 20:00 30 04/30/18 19:29 138 26 30 04/30/18 18:08 129 28 99 Mechanical Ventilator 30 04/30/18 17:20 30 04/30/18 17:19 134 20 98 Mechanical Ventilator 30 04/30/18 17:14 134 27 30 04/30/18 16:57 132 115/74 04/30/18 16:00 129 04/30/18 16:00 30 04/30/18 16:00 98.2 128 22 97/71 (80) 99 04/30/18 16:00 Mechanical Ventilator 04/30/18 15:52 98.2 04/30/18 15:01 132 23 30 04/30/18 13:00 128 18 30 04/30/18 12:09 121 140/80 04/30/18 12:00 30 04/30/18 12:00 121 04/30/18 12:00 98.1 123 24 140/80 (100) 97 04/30/18 12:00 Mechanical Ventilator 04/30/18 11:38 124 23 30 04/30/18 11:37 120 29 100 Mechanical Ventilator 30 04/30/18 10:40 126 28 100 Mechanical Ventilator 30.0 30 04/30/18 10:40 30 04/30/18 10:39 128 27 99 Mechanical Ventilator 30 04/30/18 08:48 128 21 30 04/30/18 08:00 Mechanical Ventilator 04/30/18 08:00 30 04/30/18 08:00 125 04/30/18 08:00 98.0 127 24 126/86 (99) 98 04/30/18 07:12 109 24 30 04/30/18 05:43 123 112/75 04/30/18 05:39 123 18 100 Mechanical Ventilator 30.0 30 04/30/18 05:28 104 22 30 04/30/18 05:25 125 22 98 Mechanical Ventilator 30 04/30/18 04:00 30 04/30/18 04:00 97.9 112 24 140/72 (94) 98 04/30/18 04:00 Mechanical Ventilator 04/30/18 03:33 102 04/30/18 03:24 104 22 30 04/30/18 02:00 126 22 99 Mechanical Ventilator 30 04/30/18 01:50 125 25 99 Mechanical Ventilator 30 04/30/18 01:29 128 23 30 04/30/18 00:00 98.5 131 26 128/83 (98) 100 04/30/18 00:00 Mechanical Ventilator Intake and Output 04/29/18 04/30/18 19:00 07:00 Intake Total 410.000 ml Balance 410.000 ml Intake Oral 50 ml IV Total 360.000 ml # Voids 1 Laboratory Tests Test 04/30/18 04:25 White Blood Count 17.8 K/UL (4.8-10.8) H Red Blood Count 4.48 M/UL (4.70-6.10) L Hemoglobin 13.3 G/DL (14.2-18.0) L Hematocrit 39.2 % (42.0-52.0) L Mean Corpuscular Volume 88 FL (80-99) Mean Corpuscular Hemoglobin 29.8 PG (27.0-31.0) Mean Corpuscular Hemoglobin Concent 34.0 G/DL (32.0-36.0) Red Cell Distribution Width 11.8 % (11.6-14.8) Platelet Count 204 K/UL (150-450) Mean Platelet Volume 7.1 FL (6.5-10.1) Neutrophils (%) (Auto) % (45.0-75.0) Lymphocytes (%) (Auto) % (20.0-45.0) Monocytes (%) (Auto) % (1.0-10.0) Eosinophils (%) (Auto) % (0.0-3.0) Basophils (%) (Auto) % (0.0-2.0) Differential Total Cells Counted 100 Neutrophils % (Manual) 87 % (45-75) H Lymphocytes % (Manual) 6 % (20-45) L Monocytes % (Manual) 7 % (1-10) Eosinophils % (Manual) 0 % (0-3) Basophils % (Manual) 0 % (0-2) Band Neutrophils 0 % (0-8) Platelet Estimate Adequate Platelet Morphology Normal Red Blood Cell Morphology Normal Sodium Level 142 MMOL/L (136-145) Potassium Level 4.2 MMOL/L (3.5-5.1) Chloride Level 104 MMOL/L (98-107) Carbon Dioxide Level 28 MMOL/L (21-32) Anion Gap 10 mmol/L (5-15) Blood Urea Nitrogen 18 mg/dL (7-18) Creatinine 1.1 MG/DL (0.55-1.30) Estimat Glomerular Filtration Rate > 60 mL/min (>60) Glucose Level 103 MG/DL (74-106) Calcium Level 9.5 MG/DL (8.5-10.1) Phosphorus Level 3.3 MG/DL (2.5-4.9) Albumin 2.8 G/DL (3.4-5.0) L Microbiology Date/Time Source Procedure Growth Status 04/29/18 15:00 Sputum Induced Gram Stain - Final Resulted 04/29/18 15:00 Sputum Induced Sputum Culture Pending Resulted 04/29/18 14:53 Urine,Clean Catch Urine Culture - Preliminary Resulted Objective HEENT: Atraumatic and normocephalic. Anicteric. Pupils are equal, round, and reactive to light and accommodation. Conjunctival pallor. NECK: Presence of a tracheostomy tube. No carotid bruit. Carotid upstrokes 2+ bilaterally. CVS: Normal S1, S2. Irregular. Tachycardic. No murmurs, gallops, or rubs. LUNGS: Expiratory wheezing throughout both lungs. Diminished breath sounds throughout. ABDOMEN: Soft, nontender, and nondistended. No hepatosplenomegaly. Positive bowel sounds. EXTREMITIES: No evidence of edema, clubbing, or cyanosis. Jose Pandya MD Apr 30, 2018 23:58
[2018-05-01] VITALS: BP 118/74
[2018-05-01] MEDS: dilTIAZem HCl 30mg tab ORAL SCH ×5 (00:10→23:52)
[2018-05-01] MEDS: Albuterol/Ipratropium 3ml neb HHN PRN ×4 (01:45→17:04)
[2018-05-01] MEDS: Lidocaine 1% MPF 10mg/ml 5ml HHN PRN (03:38)
[2018-05-01 04:00] VITALS: BP 119/82
[2018-05-01] MEDS: Meropenem 1 GM in NS 55 ML IVPB SCH ×3 (05:27→20:40)
[2018-05-01 08:00] VITALS: BP 102/70
[2018-05-01 08:31] LABS: HEMATOCRIT 37.7 % (42.0-52.0); HEMOGLOBIN 12.8 G/DL (14.2-18.0); MEAN CORPUSCULAR VOLUME 87 FL (80-99); PLATELET COUNT 229 K/UL (150-450); RED BLOOD COUNT 4.33 M/UL (4.70-6.10); RED CELL DISTRIBUTION WIDTH 11.9 % (11.6-14.8)
[2018-05-01 08:58] LABS: ALANINE AMINOTRANSFERASE 13 U/L (12-78); ALBUMIN 2.4 G/DL (3.4-5.0); ALBUMIN/GLOBULIN RATIO 0.4 (1.0-2.7); ALKALINE PHOSPHATASE 150 U/L (46-116); ANION GAP 12 mmol/L (5-15); ASPARTATE AMINO TRANSFERASE 10 U/L (15-37); BILIRUBIN,TOTAL 0.8 MG/DL (0.2-1.0); BLOOD UREA NITROGEN 30 mg/dL (7-18); CALCIUM 9.4 MG/DL (8.5-10.1); CARBON DIOXIDE 26 MMOL/L (21-32); CHLORIDE 106 MMOL/L (98-107); CREATININE 1.3 MG/DL (0.55-1.30); PHOSPHORUS 3.1 MG/DL (2.5-4.9); POTASSIUM 4.3 MMOL/L (3.5-5.1); SODIUM 143 MMOL/L (136-145)
[2018-05-01] MEDS: Vancomycin 750mg/NS 250ml IVPB SCH (09:42)
[2018-05-01] MEDS: Heparin 5000 units/ml inj SUBQ SCH ×2 (09:45→20:42)
--- NOTE | 2018-05-01 11:22 | Pulmonology Progress Note ---
Assessment/Plan Problems: (1) Acute and chronic respiratory failure (2) Severe sepsis (3) COPD exacerbation (4) Hypertension Assessment/Plan respiratory treatment myers cultures, sputum has GNB iv abx trial of Licocain has been helpful Id evaluation appreciated low dose Methadone titrate vent setting f/u pulse oximeter dvt prophylaxis. Subjective Interval Events: less short of breath Allergies: Coded Allergies: No Known Allergies (Unverified , 06/17/16) Objective Last 24 Hour Vital Signs Date Time Temp Pulse Resp B/P (MAP) Pulse Ox O2 Delivery O2 Flow Rate FiO2 05/01/18 08:30 115 18 30 05/01/18 08:00 97.9 106 18 102/70 (81) 100 05/01/18 07:47 109 05/01/18 07:15 116 18 100 Mechanical Ventilator 30 05/01/18 07:06 120 18 100 Mechanical Ventilator 30 05/01/18 07:06 30 05/01/18 07:03 120 18 30 05/01/18 05:27 110 119/80 05/01/18 05:23 108 24 30 05/01/18 04:00 30 05/01/18 04:00 105 05/01/18 04:00 Mechanical Ventilator 05/01/18 04:00 97.8 110 18 119/82 (94) 100 05/01/18 03:55 101 20 100 Mechanical Ventilator 30 05/01/18 03:37 30 05/01/18 03:37 110 25 100 Mechanical Ventilator 30 05/01/18 03:28 105 25 30 05/01/18 01:54 106 22 100 Mechanical Ventilator 30 05/01/18 01:45 30 05/01/18 01:44 124 24 98 Mechanical Ventilator 30 05/01/18 01:31 124 24 30 05/01/18 00:10 125 122/76 05/01/18 00:00 98.4 124 18 118/74 (89) 100 05/01/18 00:00 Mechanical Ventilator 05/01/18 00:00 125 05/01/18 00:00 30 04/30/18 23:07 121 27 30 04/30/18 20:44 133 27 30 04/30/18 20:00 98.1 122 20 122/76 (91) 100 04/30/18 20:00 132 04/30/18 20:00 Mechanical Ventilator 04/30/18 20:00 30 04/30/18 19:29 138 26 30 04/30/18 18:08 129 28 99 Mechanical Ventilator 30 04/30/18 17:20 30 04/30/18 17:19 134 20 98 Mechanical Ventilator 30 04/30/18 17:14 134 27 30 04/30/18 16:57 132 115/74 04/30/18 16:00 129 04/30/18 16:00 30 04/30/18 16:00 98.2 128 22 97/71 (80) 99 04/30/18 16:00 Mechanical Ventilator 04/30/18 15:52 98.2 04/30/18 15:01 132 23 30 04/30/18 13:00 128 18 30 04/30/18 12:09 121 140/80 04/30/18 12:00 30 04/30/18 12:00 121 04/30/18 12:00 98.1 123 24 140/80 (100) 97 04/30/18 12:00 Mechanical Ventilator 04/30/18 11:38 124 23 30 04/30/18 11:37 120 29 100 Mechanical Ventilator 30 Intake and Output 04/30/18 05/01/18 18:59 06:59 Intake Total 588.334 ml 443.2 ml Output Total 600 ml 650 ml Balance -11.666 ml -206.8 ml Intake Oral 200 ml IV Total 388.334 ml 443.2 ml Output Urine Total 600 ml 650 ml General Appearance: cachetic HEENT: normocephalic, atraumatic Respiratory/Chest: lungs clear, normal breath sounds Cardiovascular: normal peripheral pulses, regular rhythm Abdomen: normal bowel sounds, soft, non tender Genitourinary: normal external genitalia Extremities: no clubbing Skin: no lesions 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, alert Lymphatic: no groin adenopathy Musculoskeletal: normal muscle bulk Microbiology Date/Time Source Procedure Growth Status 04/29/18 14:45 Blood Blood Culture - Preliminary NO GROWTH AFTER 24 HOURS Resulted 04/29/18 14:30 Blood Blood Culture - Preliminary NO GROWTH AFTER 24 HOURS Resulted 04/29/18 15:00 Sputum Induced Gram Stain - Final Resulted 04/29/18 15:00 Sputum Culture - Preliminary Gram Negative Bacillus 1 Resulted 04/29/18 14:53 Urine,Clean Catch Urine Culture - Preliminary Gram Negative Bacillus 1 Resulted Laboratory Tests 05/01/18 08:10: White Blood Count 18.0H, Red Blood Count 4.33L, Hemoglobin 12.8L, Hematocrit 37.7L, Mean Corpuscular Volume 87, Mean Corpuscular Hemoglobin 29.5, Mean Corpuscular Hemoglobin Concent 33.9, Red Cell Distribution Width 11.9, Platelet Count 229, Mean Platelet Volume 7.4, Neutrophils (%) (Auto) , Lymphocytes (%) ( Auto) , Monocytes (%) (Auto) , Eosinophils (%) (Auto) , Basophils (%) (Auto) , Differential Total Cells Counted 100, Neutrophils % (Manual) 91H, Lymphocytes % (Manual) 2L, Monocytes % (Manual) 5, Eosinophils % (Manual) 0, Basophils % ( Manual) 2, Band Neutrophils 0, Platelet Estimate Adequate, Platelet Morphology Normal, Sodium Level 143, Potassium Level 4.3, Chloride Level 106, Carbon Dioxide Level 26, Anion Gap 12, Blood Urea Nitrogen 30H, Creatinine 1.3, Estimat Glomerular Filtration Rate > 60, Glucose Level 121H, Calcium Level 9.4, Phosphorus Level 3.1, Magnesium Level 2.4, Total Bilirubin 0.8, Aspartate Amino Transf (AST/SGOT) 10L, Alanine Aminotransferase (ALT/SGPT) 13, Alkaline Phosphatase 150H, Total Protein 8.1, Albumin 2.4L, Globulin 5.7, Albumin/ Globulin Ratio 0.4L, Vancomycin Level Trough 8.7 Current Medications Medications (Trade) Dose Ordered Sig/Shraddha Route PRN Reason Start Time Stop Time Status Last Admin Dose Admin Acetaminophen (Tylenol) 650 mg Q4H PRN ORAL FEVER 04/29/18 17:09 05/29/18 17:08 Albuterol/ Ipratropium (Albuterol/ Ipratropium) 3 ml Q4H PRN HHN Shortness of Breath 04/29/18 17:15 05/04/18 17:14 05/01/18 07:07 Dextrose (Dextrose 50%) 25 ml Q30M PRN IV Hypoglycemia 04/29/18 17:15 05/29/18 17:12 Dextrose (Dextrose 50%) 50 ml Q30M PRN IV hypoglycemia 04/29/18 17:15 05/29/18 17:14 Diltiazem HCl (Cardizem) 30 mg EVERY 6 HOURS ORAL 04/30/18 00:00 05/30/18 00:00 05/01/18 05:27 Heparin Sodium (Porcine) (Heparin 5000 units/ml) 5,000 units EVERY 12 HOURS SUBQ 04/29/18 21:00 05/29/18 20:59 05/01/18 09:45 Lidocaine (Xylocaine 1% MPF 5ml) 10 ml Q4H PRN HHN persistent cough 04/30/18 10:15 05/30/18 10:14 05/01/18 03:38 Lorazepam (Ativan 2mg/ml 1ml) 2 mg Q2H PRN IV For Anxiety 04/29/18 17:15 05/06/18 17:14 04/30/18 23:25 Meropenem 1 gm/ Sodium Chloride 55 ml @ 110 mls/hr Q8HR IVPB 04/29/18 22:00 05/04/18 21:59 05/01/18 05:27 Methadone HCl (Methadone HCl) 5 mg EVERY 12 HOURS ORAL 04/30/18 10:15 05/07/18 10:14 05/01/18 09:43 Morphine Sulfate (Morphine Sulfate) 4 mg Q4H PRN IVP Severe Pain (Pain Scale 7-10) 04/29/18 17:15 05/06/18 17:14 04/30/18 15:22 Ondansetron HCl (Zofran) 4 mg Q6H PRN IVP Nausea & Vomiting 04/29/18 17:15 05/29/18 17:14 Polyethylene Glycol (Miralax) 17 gm DAILYPRN PRN ORAL Constipation 04/29/18 17:15 05/29/18 17:14 Vancomycin HCl (Vanco rx to dose) 1 ea DAILY PRN MISC PER PHARM 04/29/18 17:15 05/29/18 17:14 Vancomycin HCl/ Dextrose 250 ml @ 166.667 mls/hr Q12HR@1000,2200 IVPB 05/01/18 22:00 05/06/18 21:59 Vancomycin/Sodium Chloride 250 ml @ 166.667 mls/hr Q12HR IVPB 04/29/18 21:00 05/01/18 12:00 05/01/18 09:42 Demetrius Andrade MD May 01, 2018 11:22
--- NOTE | 2018-05-01 11:48 | General Progress Note ---
Assessment/Plan Problem List: (1) Acute respiratory failure ICD Codes: J96.00 - Acute respiratory failure, unspecified whether with hypoxia or hypercapnia SNOMED: 65307544 (2) UTI (urinary tract infection) due to Enterococcus ICD Codes: N39.0 - Urinary tract infection, site not specified; B95.2 - Enterococcus as the cause of diseases classified elsewhere SNOMED: 176260383335775 (3) COPD exacerbation ICD Codes: J44.1 - Chronic obstructive pulmonary disease with (acute) exacerbation SNOMED: 528399716, 473895964 (4) Sepsis ICD Codes: A41.9 - Sepsis, unspecified organism SNOMED: 26729468 (5) Acute renal failure (ARF) ICD Codes: N17.9 - Acute kidney failure, unspecified SNOMED: 11926796 (6) Fever ICD Codes: R50.9 - Fever, unspecified SNOMED: 169412544 Status: unchanged Assessment/Plan vent abx cbc bmp am Subjective Constitutional: Reports: weakness Allergies: Coded Allergies: No Known Allergies (Unverified , 06/17/16) All Systems: reviewed and negative except above Subjective trach vent awake Objective Last 24 Hour Vital Signs Date Time Temp Pulse Resp B/P (MAP) Pulse Ox O2 Delivery O2 Flow Rate FiO2 05/01/18 11:06 120 20 30 05/01/18 08:30 115 18 30 05/01/18 08:00 97.9 106 18 102/70 (81) 100 05/01/18 07:47 109 05/01/18 07:15 116 18 100 Mechanical Ventilator 30 05/01/18 07:06 120 18 100 Mechanical Ventilator 30 05/01/18 07:06 30 05/01/18 07:03 120 18 30 05/01/18 05:27 110 119/80 05/01/18 05:23 108 24 30 05/01/18 04:00 30 05/01/18 04:00 105 05/01/18 04:00 Mechanical Ventilator 05/01/18 04:00 97.8 110 18 119/82 (94) 100 05/01/18 03:55 101 20 100 Mechanical Ventilator 30 05/01/18 03:37 30 05/01/18 03:37 110 25 100 Mechanical Ventilator 30 05/01/18 03:28 105 25 30 05/01/18 01:54 106 22 100 Mechanical Ventilator 30 05/01/18 01:45 30 05/01/18 01:44 124 24 98 Mechanical Ventilator 30 05/01/18 01:31 124 24 30 05/01/18 00:10 125 122/76 05/01/18 00:00 98.4 124 18 118/74 (89) 100 05/01/18 00:00 Mechanical Ventilator 05/01/18 00:00 125 05/01/18 00:00 30 04/30/18 23:07 121 27 30 04/30/18 20:44 133 27 30 04/30/18 20:00 98.1 122 20 122/76 (91) 100 04/30/18 20:00 132 04/30/18 20:00 Mechanical Ventilator 04/30/18 20:00 30 04/30/18 19:29 138 26 30 04/30/18 18:08 129 28 99 Mechanical Ventilator 30 04/30/18 17:20 30 04/30/18 17:19 134 20 98 Mechanical Ventilator 30 04/30/18 17:14 134 27 30 04/30/18 16:57 132 115/74 04/30/18 16:00 129 04/30/18 16:00 30 04/30/18 16:00 98.2 128 22 97/71 (80) 99 04/30/18 16:00 Mechanical Ventilator 04/30/18 15:52 98.2 04/30/18 15:01 132 23 30 04/30/18 13:00 128 18 30 04/30/18 12:09 121 140/80 04/30/18 12:00 30 04/30/18 12:00 121 04/30/18 12:00 98.1 123 24 140/80 (100) 97 04/30/18 12:00 Mechanical Ventilator Intake and Output 04/30/18 05/01/18 18:59 06:59 Intake Total 588.334 ml 443.2 ml Output Total 600 ml 650 ml Balance -11.666 ml -206.8 ml Intake Oral 200 ml IV Total 388.334 ml 443.2 ml Output Urine Total 600 ml 650 ml Laboratory Tests 05/01/18 08:10: White Blood Count 18.0H, Red Blood Count 4.33L, Hemoglobin 12.8L, Hematocrit 37.7L, Mean Corpuscular Volume 87, Mean Corpuscular Hemoglobin 29.5, Mean Corpuscular Hemoglobin Concent 33.9, Red Cell Distribution Width 11.9, Platelet Count 229, Mean Platelet Volume 7.4, Neutrophils (%) (Auto) , Lymphocytes (%) ( Auto) , Monocytes (%) (Auto) , Eosinophils (%) (Auto) , Basophils (%) (Auto) , Differential Total Cells Counted 100, Neutrophils % (Manual) 91H, Lymphocytes % (Manual) 2L, Monocytes % (Manual) 5, Eosinophils % (Manual) 0, Basophils % ( Manual) 2, Band Neutrophils 0, Platelet Estimate Adequate, Platelet Morphology Normal, Sodium Level 143, Potassium Level 4.3, Chloride Level 106, Carbon Dioxide Level 26, Anion Gap 12, Blood Urea Nitrogen 30H, Creatinine 1.3, Estimat Glomerular Filtration Rate > 60, Glucose Level 121H, Calcium Level 9.4, Phosphorus Level 3.1, Magnesium Level 2.4, Total Bilirubin 0.8, Aspartate Amino Transf (AST/SGOT) 10L, Alanine Aminotransferase (ALT/SGPT) 13, Alkaline Phosphatase 150H, Total Protein 8.1, Albumin 2.4L, Globulin 5.7, Albumin/ Globulin Ratio 0.4L, Vancomycin Level Trough 8.7 Height (Feet): 6 Height (Inches): 5.00 Weight (Pounds): 168 General Appearance: lethargic EENT: normal ENT inspection Neck: normal alignment Cardiovascular: normal peripheral pulses, normal rate, regular rhythm Respiratory/Chest: chest wall non-tender, lungs clear, normal breath sounds Abdomen: normal bowel sounds, non tender, soft Extremities: normal inspection Edema: no edema noted Arm (L), no edema noted Arm (R), no edema noted Leg (L), no edema noted Leg (R), no edema noted Pedal (L), no edema noted Pedal (R), no edema noted Generalized Neurologic: motor weakness Skin: normal pigmentation, warm/dry Elan Petersen DO May 01, 2018 11:48
[2018-05-01 12:00] VITALS: BP 139/78
[2018-05-01] MEDS: Morphine Sulfate 4mg/ml Inj (IV/IM USE ONLY) IVP PRN ×3 (12:40→23:52)
[2018-05-01 15:57] VITALS: BP 131/79
--- NOTE | 2018-05-01 16:13 | Cardiology Report ---
APPROVED REPORT EKG Measurement Heart [id number] Sinus tachycardia Otherwise normal ECG
--- NOTE | 2018-05-01 16:15 | Cardiology Report ---
APPROVED REPORT EKG Measurement Heart [id number] Sinus tachycardia Otherwise normal ECG
[2018-05-01 20:00] VITALS: BP 109/73
--- NOTE | 2018-05-01 20:32 | Infectious Diseases Prog Note ---
Assessment/Plan Assessment/Plan ASSESSMENT: The patient is a 67-year-old male with, Fever, Sp Leukocytosis Rule out probable bacteremia. Rule out probable UIT : UCx: GNR Rule out hospital-acquired pneumonia (despite of negative chestx-ray) Scx: GNR Probable sepsis hx of Pneumonia MDR Pseudomonas/MRSA History of coag-negative staph and Acinetobacter bacteremia (December 2017) History of diabetes. Hypertension. Asthma History of colon cancer, status post hemicolectomy Right lower extremity DVT Pulmonary nodules PLAN: -continue the patient on vancomycin and meropenem day #3 -Monitor CBC -Monitor BMP -Monitor cultures (blood, urine, and sputum) -Monitor chest x-ray -Continue respiratory support Subjective Allergies: Coded Allergies: No Known Allergies (Unverified , 06/17/16) Subjective afebrile leukocytosis + Objective Vital Signs Last 24 Hour Vital Signs Date Time Temp Pulse Resp B/P (MAP) Pulse Ox O2 Delivery O2 Flow Rate FiO2 05/01/18 20:00 104 05/01/18 19:21 99 18 30 05/01/18 18:09 109 131/79 05/01/18 17:10 120 18 98 Mechanical Ventilator 30 05/01/18 17:00 30 05/01/18 17:00 113 18 99 Mechanical Ventilator 30 05/01/18 16:59 118 18 30 05/01/18 16:00 30 05/01/18 16:00 Mechanical Ventilator 05/01/18 16:00 113 05/01/18 15:57 99.0 117 19 131/79 (96) 100 05/01/18 15:20 115 20 30 05/01/18 12:39 118 139/78 05/01/18 12:34 113 22 30 05/01/18 12:33 114 18 98 Mechanical Ventilator 30 05/01/18 12:27 30 05/01/18 12:27 115 18 99 Mechanical Ventilator 30 05/01/18 12:00 112 05/01/18 12:00 30 05/01/18 12:00 Mechanical Ventilator 05/01/18 12:00 99.3 117 20 139/78 (98) 97 05/01/18 11:06 120 20 30 05/01/18 08:30 115 18 30 05/01/18 08:00 97.9 106 18 102/70 (81) 100 05/01/18 08:00 Mechanical Ventilator 05/01/18 08:00 30 05/01/18 07:47 109 05/01/18 07:15 116 18 100 Mechanical Ventilator 30 05/01/18 07:06 120 18 100 Mechanical Ventilator 30 05/01/18 07:06 30 05/01/18 07:03 120 18 30 05/01/18 05:27 110 119/80 05/01/18 05:23 108 24 30 05/01/18 04:00 30 05/01/18 04:00 105 05/01/18 04:00 Mechanical Ventilator 05/01/18 04:00 97.8 110 18 119/82 (94) 100 05/01/18 03:55 101 20 100 Mechanical Ventilator 30 05/01/18 03:37 30 05/01/18 03:37 110 25 100 Mechanical Ventilator 30 05/01/18 03:28 105 25 30 05/01/18 01:54 106 22 100 Mechanical Ventilator 30 05/01/18 01:45 30 05/01/18 01:44 124 24 98 Mechanical Ventilator 30 05/01/18 01:31 124 24 30 05/01/18 00:10 125 122/76 05/01/18 00:00 98.4 124 18 118/74 (89) 100 05/01/18 00:00 Mechanical Ventilator 05/01/18 00:00 125 05/01/18 00:00 30 04/30/18 23:07 121 27 30 04/30/18 20:44 133 27 30 Height (Feet): 6 Height (Inches): 5.00 Weight (Pounds): 168 HEENT: mucous membranes moist Respiratory/Chest: no respiratory distress Cardiovascular: regular rhythm Abdomen: no organomegaly Microbiology Date/Time Source Procedure Growth Status 04/29/18 14:45 Blood Blood Culture - Preliminary NO GROWTH AFTER 24 HOURS Resulted 04/29/18 14:30 Blood Blood Culture - Preliminary NO GROWTH AFTER 24 HOURS Resulted 04/29/18 15:00 Sputum Induced Gram Stain - Final Resulted 04/29/18 15:00 Sputum Culture - Preliminary Gram Negative Bacillus 1 Resulted 04/29/18 14:53 Urine,Clean Catch Urine Culture - Preliminary Gram Negative Bacillus 1 Resulted Laboratory Tests Test 05/01/18 08:10 White Blood Count 18.0 K/UL (4.8-10.8) H Red Blood Count 4.33 M/UL (4.70-6.10) L Hemoglobin 12.8 G/DL (14.2-18.0) L Hematocrit 37.7 % (42.0-52.0) L Mean Corpuscular Volume 87 FL (80-99) Mean Corpuscular Hemoglobin 29.5 PG (27.0-31.0) Mean Corpuscular Hemoglobin Concent 33.9 G/DL (32.0-36.0) Red Cell Distribution Width 11.9 % (11.6-14.8) Platelet Count 229 K/UL (150-450) Mean Platelet Volume 7.4 FL (6.5-10.1) Neutrophils (%) (Auto) % (45.0-75.0) Lymphocytes (%) (Auto) % (20.0-45.0) Monocytes (%) (Auto) % (1.0-10.0) Eosinophils (%) (Auto) % (0.0-3.0) Basophils (%) (Auto) % (0.0-2.0) Differential Total Cells Counted 100 Neutrophils % (Manual) 91 % (45-75) H Lymphocytes % (Manual) 2 % (20-45) L Monocytes % (Manual) 5 % (1-10) Eosinophils % (Manual) 0 % (0-3) Basophils % (Manual) 2 % (0-2) Band Neutrophils 0 % (0-8) Platelet Estimate Adequate Platelet Morphology Normal Sodium Level 143 MMOL/L (136-145) Potassium Level 4.3 MMOL/L (3.5-5.1) Chloride Level 106 MMOL/L (98-107) Carbon Dioxide Level 26 MMOL/L (21-32) Anion Gap 12 mmol/L (5-15) Blood Urea Nitrogen 30 mg/dL (7-18) H Creatinine 1.3 MG/DL (0.55-1.30) Estimat Glomerular Filtration Rate > 60 mL/min (>60) Glucose Level 121 MG/DL (74-106) H Calcium Level 9.4 MG/DL (8.5-10.1) Phosphorus Level 3.1 MG/DL (2.5-4.9) Magnesium Level 2.4 MG/DL (1.8-2.4) Total Bilirubin 0.8 MG/DL (0.2-1.0) Aspartate Amino Transf (AST/SGOT) 10 U/L (15-37) L Alanine Aminotransferase (ALT/SGPT) 13 U/L (12-78) Alkaline Phosphatase 150 U/L (46-116) H Total Protein 8.1 G/DL (6.4-8.2) Albumin 2.4 G/DL (3.4-5.0) L Globulin 5.7 g/dL Albumin/Globulin Ratio 0.4 (1.0-2.7) L Vancomycin Level Trough 8.7 ug/mL (5.0-12.0) Current Medications Medications (Trade) Dose Ordered Sig/Shraddha Route PRN Reason Start Time Stop Time Status Last Admin Dose Admin Acetaminophen (Tylenol) 650 mg Q4H PRN ORAL FEVER 04/29/18 17:09 05/29/18 17:08 Albuterol/ Ipratropium (Albuterol/ Ipratropium) 3 ml Q4H PRN HHN Shortness of Breath 04/29/18 17:15 05/04/18 17:14 05/01/18 17:04 Dextrose (Dextrose 50%) 25 ml Q30M PRN IV Hypoglycemia 04/29/18 17:15 05/29/18 17:12 Dextrose (Dextrose 50%) 50 ml Q30M PRN IV hypoglycemia 04/29/18 17:15 05/29/18 17:14 Diltiazem HCl (Cardizem) 30 mg EVERY 6 HOURS ORAL 04/30/18 00:00 05/30/18 00:00 05/01/18 18:09 Heparin Sodium (Porcine) (Heparin 5000 units/ml) 5,000 units EVERY 12 HOURS SUBQ 04/29/18 21:00 05/29/18 20:59 05/01/18 09:45 Lidocaine (Xylocaine 1% MPF 5ml) 10 ml Q4H PRN HHN persistent cough 04/30/18 10:15 05/30/18 10:14 05/01/18 03:38 Lorazepam (Ativan 2mg/ml 1ml) 2 mg Q2H PRN IV For Anxiety 04/29/18 17:15 05/06/18 17:14 04/30/18 23:25 Meropenem 1 gm/ Sodium Chloride 55 ml @ 110 mls/hr Q8HR IVPB 04/29/18 22:00 05/04/18 21:59 05/01/18 14:32 Methadone HCl (Methadone HCl) 5 mg EVERY 12 HOURS ORAL 04/30/18 10:15 05/07/18 10:14 05/01/18 09:43 Morphine Sulfate (Morphine Sulfate) 4 mg Q4H PRN IVP Severe Pain (Pain Scale 7-10) 04/29/18 17:15 05/06/18 17:14 05/01/18 16:52 Ondansetron HCl (Zofran) 4 mg Q6H PRN IVP Nausea & Vomiting 04/29/18 17:15 05/29/18 17:14 Polyethylene Glycol (Miralax) 17 gm DAILYPRN PRN ORAL Constipation 04/29/18 17:15 05/29/18 17:14 Vancomycin HCl (Vanco rx to dose) 1 ea DAILY PRN MISC PER PHARM 04/29/18 17:15 05/29/18 17:14 Vancomycin HCl/ Dextrose 250 ml @ 166.667 mls/hr Q12HR@1000,2200 IVPB 05/01/18 22:00 05/06/18 21:59 Anibal Trujillo MD May 01, 2018 20:32
[2018-05-01] MEDS: Vancomycin 1250mg/D5W 250ml IVPB SCH (21:45)
[2018-05-02] VITALS: BP 124/78
[2018-05-02] MEDS: Albuterol/Ipratropium 3ml neb HHN PRN ×2 (03:43→21:37)
[2018-05-02 04:00] VITALS: BP 125/84
[2018-05-02] MEDS: dilTIAZem HCl 30mg tab ORAL SCH ×3 (05:20→18:11)
[2018-05-02] MEDS: Meropenem 1 GM in NS 55 ML IVPB SCH (05:20)
[2018-05-02] MEDS: Morphine Sulfate 4mg/ml Inj (IV/IM USE ONLY) IVP PRN ×2 (05:21→14:50)
[2018-05-02 05:22] LABS: BASOPHILS % (AUTO) 1.4 % (0.0-2.0); EOSINOPHILS % (AUTO) 4.5 % (0.0-3.0); HEMATOCRIT 35.1 % (42.0-52.0); HEMOGLOBIN 11.6 G/DL (14.2-18.0); LYMPHOCYTES % (AUTO) 8.6 % (20.0-45.0); MEAN CORPUSCULAR VOLUME 87 FL (80-99); NEUTROPHILS % (AUTO) 77.6 % (45.0-75.0); PLATELET COUNT 304 K/UL (150-450); RED BLOOD COUNT 4.04 M/UL (4.70-6.10); RED CELL DISTRIBUTION WIDTH 11.8 % (11.6-14.8); WHITE BLOOD COUNT 11.8 K/UL (4.8-10.8)
[2018-05-02 05:38] LABS: ANION GAP 11 mmol/L (5-15); BLOOD UREA NITROGEN 25 mg/dL (7-18); CALCIUM 9.6 MG/DL (8.5-10.1); CARBON DIOXIDE 27 MMOL/L (21-32); CHLORIDE 106 MMOL/L (98-107); CREATININE 1.2 MG/DL (0.55-1.30); POTASSIUM 3.7 MMOL/L (3.5-5.1); SODIUM 144 MMOL/L (136-145)
[2018-05-02] MEDS: Lidocaine 1% MPF 10mg/ml 5ml HHN PRN (06:26)
--- NOTE | 2018-05-02 07:31 | Pulmonology Progress Note ---
Assessment/Plan Assessment/Plan ASSESSMENT Acute on chronic, ventilator dependent respiratory failure Sepsis UTI with Proteus COPD with exacerbation Probably PNA with Pseudomonas Hypertension History of colon cancer Protein calorie malnutrition PLAN OF CARE JORDAN Vent support, trach care pulmonary toilet ATC and PRN abx ID follows blood cx prel negative sputum cx + Pseudomonas, Strep Gr G, urine cx +Proteus short pulse of steroids f/up with CXR on Friday baseline ABG and titrate settings as needed venous duplex BLE negative DVT prophylaxis pain management bowel regimen cardio follows supportive care diet eval case discussed and evaluated by supervising physician Subjective Allergies: Coded Allergies: No Known Allergies (Unverified , 06/17/16) Subjective leukocytosis trending down, afebrile remains tachycardic Objective Last 24 Hour Vital Signs Date Time Temp Pulse Resp B/P (MAP) Pulse Ox O2 Delivery O2 Flow Rate FiO2 05/02/18 06:07 98.2 05/02/18 05:39 106 18 30 05/02/18 05:20 110 125/84 05/02/18 04:00 98.2 110 21 125/84 (98) 100 05/02/18 04:00 Mechanical Ventilator 05/02/18 04:00 113 05/02/18 04:00 30 05/02/18 03:51 110 18 100 Mechanical Ventilator 30 05/02/18 03:44 30 05/02/18 03:43 119 18 100 Mechanical Ventilator 30 05/02/18 03:13 109 18 30 05/02/18 01:05 94 18 30 05/02/18 00:00 Mechanical Ventilator 05/02/18 00:00 30 05/02/18 00:00 98.2 113 20 124/78 (93) 100 05/02/18 00:00 104 05/01/18 23:52 113 124/78 05/01/18 22:58 102 18 30 05/01/18 21:52 108 18 30 05/01/18 20:00 104 05/01/18 20:00 30 05/01/18 20:00 Mechanical Ventilator 05/01/18 20:00 98.8 107 18 109/73 (85) 100 05/01/18 19:21 99 18 30 05/01/18 18:09 109 131/79 05/01/18 17:10 120 18 98 Mechanical Ventilator 30 05/01/18 17:00 30 05/01/18 17:00 113 18 99 Mechanical Ventilator 30 05/01/18 16:59 118 18 30 05/01/18 16:00 30 05/01/18 16:00 Mechanical Ventilator 05/01/18 16:00 113 05/01/18 15:57 99.0 117 19 131/79 (96) 100 05/01/18 15:20 115 20 30 05/01/18 12:39 118 139/78 05/01/18 12:34 113 22 30 05/01/18 12:33 114 18 98 Mechanical Ventilator 30 05/01/18 12:27 30 05/01/18 12:27 115 18 99 Mechanical Ventilator 30 05/01/18 12:00 112 05/01/18 12:00 30 05/01/18 12:00 Mechanical Ventilator 05/01/18 12:00 99.3 117 20 139/78 (98) 97 05/01/18 11:06 120 20 30 05/01/18 08:30 115 18 30 05/01/18 08:00 97.9 106 18 102/70 (81) 100 05/01/18 08:00 Mechanical Ventilator 05/01/18 08:00 30 05/01/18 07:47 109 Intake and Output 05/01/18 05/02/18 19:00 07:00 Intake Total 535 ml 360.000 ml Output Total 450 ml 500 ml Balance 85 ml -140.000 ml Intake Oral 480 ml IV Total 55 ml 360.000 ml Output Urine Total 450 ml 500 ml General Appearance: no acute distress, other - on Vent AC 700-18-30% HEENT: normocephalic, atraumatic, anicteric, status post trach - Portex#8, secretions thin, moderate amount, colorless Respiratory/Chest: decreased breath sounds Cardiovascular: tachycardia - ST on tele Abdomen: normal bowel sounds, soft, non tender Extremities: no edema, pedal pulses normal Neurologic/Psychiatric: abnormal gait, alert, oriented x 3 Musculoskeletal: atrophy - BLE Microbiology Date/Time Source Procedure Growth Status 04/29/18 14:45 Blood Blood Culture - Preliminary NO GROWTH AFTER 24 HOURS Resulted 04/29/18 14:30 Blood Blood Culture - Preliminary NO GROWTH AFTER 24 HOURS Resulted 04/29/18 15:00 Sputum Induced Gram Stain - Final Resulted 04/29/18 15:00 Sputum Culture - Preliminary Pseudomonas Aeruginosa Streptococcus Group G Diphtheroids Resulted 04/29/18 14:53 Urine,Clean Catch Urine Culture - Preliminary Gram Negative Bacillus 1 Resulted Laboratory Tests 05/01/18 08:10: White Blood Count 18.0H, Red Blood Count 4.33L, Hemoglobin 12.8L, Hematocrit 37.7L, Mean Corpuscular Volume 87, Mean Corpuscular Hemoglobin 29.5, Mean Corpuscular Hemoglobin Concent 33.9, Red Cell Distribution Width 11.9, Platelet Count 229, Mean Platelet Volume 7.4, Neutrophils (%) (Auto) , Lymphocytes (%) ( Auto) , Monocytes (%) (Auto) , Eosinophils (%) (Auto) , Basophils (%) (Auto) , Differential Total Cells Counted 100, Neutrophils % (Manual) 91H, Lymphocytes % (Manual) 2L, Monocytes % (Manual) 5, Eosinophils % (Manual) 0, Basophils % ( Manual) 2, Band Neutrophils 0, Platelet Estimate Adequate, Platelet Morphology Normal, Sodium Level 143, Potassium Level 4.3, Chloride Level 106, Carbon Dioxide Level 26, Anion Gap 12, Blood Urea Nitrogen 30H, Creatinine 1.3, Estimat Glomerular Filtration Rate > 60, Glucose Level 121H, Calcium Level 9.4, Phosphorus Level 3.1, Magnesium Level 2.4, Total Bilirubin 0.8, Aspartate Amino Transf (AST/SGOT) 10L, Alanine Aminotransferase (ALT/SGPT) 13, Alkaline Phosphatase 150H, Total Protein 8.1, Albumin 2.4L, Globulin 5.7, Albumin/ Globulin Ratio 0.4L, Vancomycin Level Trough 8.7 05/02/18 04:38: White Blood Count 11.8H, Red Blood Count 4.04L, Hemoglobin 11.6L, Hematocrit 35.1L, Mean Corpuscular Volume 87, Mean Corpuscular Hemoglobin 28.8, Mean Corpuscular Hemoglobin Concent 33.2, Red Cell Distribution Width 11.8, Platelet Count 304, Mean Platelet Volume 6.4L, Neutrophils (%) (Auto) 77.6H, Lymphocytes (%) (Auto) 8.6L, Monocytes (%) (Auto) 8.0, Eosinophils (%) (Auto) 4.5H, Basophils (%) (Auto) 1.4, Sodium Level 144, Potassium Level 3.7, Chloride Level 106, Carbon Dioxide Level 27, Anion Gap 11, Blood Urea Nitrogen 25H, Creatinine 1.2, Estimat Glomerular Filtration Rate > 60, Glucose Level 128H, Calcium Level 9.6 Current Medications Medications (Trade) Dose Ordered Sig/Shraddha Route PRN Reason Start Time Stop Time Status Last Admin Dose Admin Acetaminophen (Tylenol) 650 mg Q4H PRN ORAL FEVER 04/29/18 17:09 05/29/18 17:08 Albuterol/ Ipratropium (Albuterol/ Ipratropium) 3 ml Q4H PRN HHN Shortness of Breath 04/29/18 17:15 05/04/18 17:14 05/02/18 03:43 Dextrose (Dextrose 50%) 25 ml Q30M PRN IV Hypoglycemia 04/29/18 17:15 05/29/18 17:12 Dextrose (Dextrose 50%) 50 ml Q30M PRN IV hypoglycemia 04/29/18 17:15 05/29/18 17:14 Diltiazem HCl (Cardizem) 30 mg EVERY 6 HOURS ORAL 04/30/18 00:00 05/30/18 00:00 05/02/18 05:20 Heparin Sodium (Porcine) (Heparin 5000 units/ml) 5,000 units EVERY 12 HOURS SUBQ 04/29/18 21:00 05/29/18 20:59 05/01/18 20:42 Lidocaine (Xylocaine 1% MPF 5ml) 10 ml Q4H PRN HHN persistent cough 04/30/18 10:15 05/30/18 10:14 05/02/18 06:26 Lorazepam (Ativan 2mg/ml 1ml) 2 mg Q2H PRN IV For Anxiety 04/29/18 17:15 05/06/18 17:14 04/30/18 23:25 Meropenem 1 gm/ Sodium Chloride 55 ml @ 110 mls/hr Q8HR IVPB 04/29/18 22:00 05/04/18 21:59 05/02/18 05:20 Methadone HCl (Methadone HCl) 5 mg EVERY 12 HOURS ORAL 04/30/18 10:15 05/07/18 10:14 05/01/18 20:41 Morphine Sulfate (Morphine Sulfate) 4 mg Q4H PRN IVP Severe Pain (Pain Scale 7-10) 04/29/18 17:15 05/06/18 17:14 05/02/18 05:21 Ondansetron HCl (Zofran) 4 mg Q6H PRN IVP Nausea & Vomiting 04/29/18 17:15 05/29/18 17:14 Polyethylene Glycol (Miralax) 17 gm DAILYPRN PRN ORAL Constipation 04/29/18 17:15 05/29/18 17:14 Vancomycin HCl (Vanco rx to dose) 1 ea DAILY PRN MISC PER PHARM 04/29/18 17:15 05/29/18 17:14 Vancomycin HCl/ Dextrose 250 ml @ 166.667 mls/hr Q12HR@1000,2200 IVPB 05/01/18 22:00 05/06/18 21:59 05/01/18 21:45 Katia Sequeira NP May 02, 2018 07:31
[2018-05-02 08:00] VITALS: BP 103/73
--- NOTE | 2018-05-02 08:07 | General Progress Note ---
Assessment/Plan Problem List: (1) Acute respiratory failure ICD Codes: J96.00 - Acute respiratory failure, unspecified whether with hypoxia or hypercapnia SNOMED: 68142541 (2) UTI (urinary tract infection) due to Enterococcus ICD Codes: N39.0 - Urinary tract infection, site not specified; B95.2 - Enterococcus as the cause of diseases classified elsewhere SNOMED: 704664553180348 (3) COPD exacerbation ICD Codes: J44.1 - Chronic obstructive pulmonary disease with (acute) exacerbation SNOMED: 021354854, 035044478 (4) Sepsis ICD Codes: A41.9 - Sepsis, unspecified organism SNOMED: 53460470 (5) Acute renal failure (ARF) ICD Codes: N17.9 - Acute kidney failure, unspecified SNOMED: 92219045 (6) Fever ICD Codes: R50.9 - Fever, unspecified SNOMED: 965072000 Status: stable, progressing Assessment/Plan vent abx cbc bmp am Subjective Constitutional: Reports: weakness Allergies: Coded Allergies: No Known Allergies (Unverified , 06/17/16) All Systems: reviewed and negative except above Subjective trach vent asleep Objective Last 24 Hour Vital Signs Date Time Temp Pulse Resp B/P (MAP) Pulse Ox O2 Delivery O2 Flow Rate FiO2 05/02/18 08:00 98.4 117 18 103/73 (83) 100 05/02/18 06:07 98.2 05/02/18 05:39 106 18 30 05/02/18 05:20 110 125/84 05/02/18 04:00 98.2 110 21 125/84 (98) 100 05/02/18 04:00 Mechanical Ventilator 05/02/18 04:00 113 05/02/18 04:00 30 05/02/18 03:51 110 18 100 Mechanical Ventilator 30 05/02/18 03:44 30 05/02/18 03:43 119 18 100 Mechanical Ventilator 30 05/02/18 03:13 109 18 30 05/02/18 01:05 94 18 30 05/02/18 00:00 Mechanical Ventilator 05/02/18 00:00 30 05/02/18 00:00 98.2 113 20 124/78 (93) 100 05/02/18 00:00 104 05/01/18 23:52 113 124/78 05/01/18 22:58 102 18 30 10/26/18 21:52 108 18 30 05/01/18 20:00 104 05/01/18 20:00 30 05/01/18 20:00 Mechanical Ventilator 05/01/18 20:00 98.8 107 18 109/73 (85) 100 05/01/18 19:21 99 18 30 05/01/18 18:09 109 131/79 05/01/18 17:10 120 18 98 Mechanical Ventilator 30 05/01/18 17:00 30 05/01/18 17:00 113 18 99 Mechanical Ventilator 30 05/01/18 16:59 118 18 30 05/01/18 16:00 30 05/01/18 16:00 Mechanical Ventilator 05/01/18 16:00 113 05/01/18 15:57 99.0 117 19 131/79 (96) 100 05/01/18 15:20 115 20 30 05/01/18 12:39 118 139/78 05/01/18 12:34 113 22 30 05/01/18 12:33 114 18 98 Mechanical Ventilator 30 05/01/18 12:27 30 05/01/18 12:27 115 18 99 Mechanical Ventilator 30 05/01/18 12:00 112 05/01/18 12:00 30 05/01/18 12:00 Mechanical Ventilator 05/01/18 12:00 99.3 117 20 139/78 (98) 97 05/01/18 11:06 120 20 30 05/01/18 08:30 115 18 30 Intake and Output 05/01/18 05/02/18 19:00 07:00 Intake Total 535 ml 360.000 ml Output Total 450 ml 500 ml Balance 85 ml -140.000 ml Intake Oral 480 ml IV Total 55 ml 360.000 ml Output Urine Total 450 ml 500 ml Laboratory Tests 05/01/18 08:10: White Blood Count 18.0H, Red Blood Count 4.33L, Hemoglobin 12.8L, Hematocrit 37.7L, Mean Corpuscular Volume 87, Mean Corpuscular Hemoglobin 29.5, Mean Corpuscular Hemoglobin Concent 33.9, Red Cell Distribution Width 11.9, Platelet Count 229, Mean Platelet Volume 7.4, Neutrophils (%) (Auto) , Lymphocytes (%) ( Auto) , Monocytes (%) (Auto) , Eosinophils (%) (Auto) , Basophils (%) (Auto) , Differential Total Cells Counted 100, Neutrophils % (Manual) 91H, Lymphocytes % (Manual) 2L, Monocytes % (Manual) 5, Eosinophils % (Manual) 0, Basophils % ( Manual) 2, Band Neutrophils 0, Platelet Estimate Adequate, Platelet Morphology Normal, Sodium Level 143, Potassium Level 4.3, Chloride Level 106, Carbon Dioxide Level 26, Anion Gap 12, Blood Urea Nitrogen 30H, Creatinine 1.3, Estimat Glomerular Filtration Rate > 60, Glucose Level 121H, Calcium Level 9.4, Phosphorus Level 3.1, Magnesium Level 2.4, Total Bilirubin 0.8, Aspartate Amino Transf (AST/SGOT) 10L, Alanine Aminotransferase (ALT/SGPT) 13, Alkaline Phosphatase 150H, Total Protein 8.1, Albumin 2.4L, Globulin 5.7, Albumin/ Globulin Ratio 0.4L, Vancomycin Level Trough 8.7 05/02/18 04:38: White Blood Count 11.8H, Red Blood Count 4.04L, Hemoglobin 11.6L, Hematocrit 35.1L, Mean Corpuscular Volume 87, Mean Corpuscular Hemoglobin 28.8, Mean Corpuscular Hemoglobin Concent 33.2, Red Cell Distribution Width 11.8, Platelet Count 304, Mean Platelet Volume 6.4L, Neutrophils (%) (Auto) 77.6H, Lymphocytes (%) (Auto) 8.6L, Monocytes (%) (Auto) 8.0, Eosinophils (%) (Auto) 4.5H, Basophils (%) (Auto) 1.4, Sodium Level 144, Potassium Level 3.7, Chloride Level 106, Carbon Dioxide Level 27, Anion Gap 11, Blood Urea Nitrogen 25H, Creatinine 1.2, Estimat Glomerular Filtration Rate > 60, Glucose Level 128H, Calcium Level 9.6 Height (Feet): 6 Height (Inches): 5.00 Weight (Pounds): 168 General Appearance: lethargic EENT: normal ENT inspection Neck: normal alignment Cardiovascular: normal peripheral pulses, normal rate, regular rhythm Respiratory/Chest: chest wall non-tender, decreased breath sounds Abdomen: normal bowel sounds, non tender, soft Extremities: normal inspection Edema: no edema noted Arm (L), no edema noted Arm (R), no edema noted Leg (L), no edema noted Leg (R), no edema noted Pedal (L), no edema noted Pedal (R), no edema noted Generalized Neurologic: motor weakness Skin: normal pigmentation, warm/dry Elan Petersen DO May 02, 2018 08:07
[2018-05-02] MEDS: Heparin 5000 units/ml inj SUBQ SCH ×2 (08:32→20:31)
[2018-05-02] MEDS: Vancomycin 1250mg/D5W 250ml IVPB SCH (10:02)
--- NOTE | 2018-05-02 10:35 | Infectious Diseases Prog Note ---
Assessment/Plan Assessment/Plan ASSESSMENT: The patient is a 67-year-old male with, Fever, Sp Leukocytosis, improving probable UIT : UCx: P mirabilis Probable HAPn (despite of negative chestx-ray) Scx: PSA and ( sterp GrpG and diphtheroids) Probable sepsis hx of Pneumonia MDR Pseudomonas/MRSA History of coag-negative staph and Acinetobacter bacteremia (December 2017) History of diabetes. Hypertension. Asthma History of colon cancer, status post hemicolectomy Right lower extremity DVT Pulmonary nodules PLAN: -continue the patient on Zoysn d# 1/ and DC vancomycin and meropenem day #4 -Monitor CBC -Monitor BMP -Monitor cultures (blood,) -Monitor chest x-ray in AM -Continue respiratory support Subjective Allergies: Coded Allergies: No Known Allergies (Unverified , 06/17/16) Subjective afebrile no acute event cough + Objective Vital Signs Last 24 Hour Vital Signs Date Time Temp Pulse Resp B/P (MAP) Pulse Ox O2 Delivery O2 Flow Rate FiO2 05/02/18 09:20 108 18 30 05/02/18 08:47 113 05/02/18 08:00 Mechanical Ventilator 05/02/18 08:00 98.4 117 18 103/73 (83) 100 05/02/18 08:00 30 05/02/18 06:30 110 18 30 05/02/18 06:07 98.2 05/02/18 05:39 106 18 30 05/02/18 05:20 110 125/84 05/02/18 04:00 98.2 110 21 125/84 (98) 100 05/02/18 04:00 Mechanical Ventilator 05/02/18 04:00 113 05/02/18 04:00 30 05/02/18 03:51 110 18 100 Mechanical Ventilator 30 05/02/18 03:44 30 05/02/18 03:43 119 18 100 Mechanical Ventilator 30 05/02/18 03:13 109 18 30 05/02/18 01:05 94 18 30 05/02/18 00:00 Mechanical Ventilator 05/02/18 00:00 30 05/02/18 00:00 98.2 113 20 124/78 (93) 100 05/02/18 00:00 104 05/01/18 23:52 113 124/78 05/01/18 22:58 102 18 30 05/01/18 21:52 108 18 30 05/01/18 20:00 104 05/01/18 20:00 30 05/01/18 20:00 Mechanical Ventilator 05/01/18 20:00 98.8 107 18 109/73 (85) 100 05/01/18 19:21 99 18 30 05/01/18 18:09 109 131/79 05/01/18 17:10 120 18 98 Mechanical Ventilator 30 05/01/18 17:00 30 05/01/18 17:00 113 18 99 Mechanical Ventilator 30 05/01/18 16:59 118 18 30 05/01/18 16:00 30 05/01/18 16:00 Mechanical Ventilator 05/01/18 16:00 113 05/01/18 15:57 99.0 117 19 131/79 (96) 100 05/01/18 15:20 115 20 30 05/01/18 12:39 118 139/78 05/01/18 12:34 113 22 30 05/01/18 12:33 114 18 98 Mechanical Ventilator 30 05/01/18 12:27 30 05/01/18 12:27 115 18 99 Mechanical Ventilator 30 05/01/18 12:00 112 05/01/18 12:00 30 05/01/18 12:00 Mechanical Ventilator 05/01/18 12:00 99.3 117 20 139/78 (98) 97 05/01/18 11:06 120 20 30 Height (Feet): 6 Height (Inches): 5.00 Weight (Pounds): 168 HEENT: mucous membranes moist Respiratory/Chest: normal breath sounds Cardiovascular: regular rhythm Abdomen: non distended Microbiology Date/Time Source Procedure Growth Status 04/29/18 14:45 Blood Blood Culture - Preliminary NO GROWTH AFTER 24 HOURS Resulted 04/29/18 14:30 Blood Blood Culture - Preliminary NO GROWTH AFTER 24 HOURS Resulted 04/29/18 15:00 Sputum Induced Gram Stain - Final Resulted 04/29/18 15:00 Sputum Culture - Preliminary Pseudomonas Aeruginosa Streptococcus Group G Diphtheroids Resulted 04/29/18 14:53 Urine,Clean Catch Urine Culture - Preliminary Proteus Mirabilis Resulted Laboratory Tests Test 05/02/18 04:38 White Blood Count 11.8 K/UL (4.8-10.8) H Red Blood Count 4.04 M/UL (4.70-6.10) L Hemoglobin 11.6 G/DL (14.2-18.0) L Hematocrit 35.1 % (42.0-52.0) L Mean Corpuscular Volume 87 FL (80-99) Mean Corpuscular Hemoglobin 28.8 PG (27.0-31.0) Mean Corpuscular Hemoglobin Concent 33.2 G/DL (32.0-36.0) Red Cell Distribution Width 11.8 % (11.6-14.8) Platelet Count 304 K/UL (150-450) Mean Platelet Volume 6.4 FL (6.5-10.1) L Neutrophils (%) (Auto) 77.6 % (45.0-75.0) H Lymphocytes (%) (Auto) 8.6 % (20.0-45.0) L Monocytes (%) (Auto) 8.0 % (1.0-10.0) Eosinophils (%) (Auto) 4.5 % (0.0-3.0) H Basophils (%) (Auto) 1.4 % (0.0-2.0) Sodium Level 144 MMOL/L (136-145) Potassium Level 3.7 MMOL/L (3.5-5.1) Chloride Level 106 MMOL/L (98-107) Carbon Dioxide Level 27 MMOL/L (21-32) Anion Gap 11 mmol/L (5-15) Blood Urea Nitrogen 25 mg/dL (7-18) H Creatinine 1.2 MG/DL (0.55-1.30) Estimat Glomerular Filtration Rate > 60 mL/min (>60) Glucose Level 128 MG/DL (74-106) H Calcium Level 9.6 MG/DL (8.5-10.1) Current Medications Medications (Trade) Dose Ordered Sig/Shraddha Route PRN Reason Start Time Stop Time Status Last Admin Dose Admin Acetaminophen (Tylenol) 650 mg Q4H PRN ORAL FEVER 04/29/18 17:09 05/29/18 17:08 Albuterol/ Ipratropium (Albuterol/ Ipratropium) 3 ml Q4H PRN HHN Shortness of Breath 05/02/18 13:15 05/07/18 13:14 Dextrose (Dextrose 50%) 25 ml Q30M PRN IV Hypoglycemia 04/29/18 17:15 05/29/18 17:12 Dextrose (Dextrose 50%) 50 ml Q30M PRN IV hypoglycemia 04/29/18 17:15 05/29/18 17:14 Diltiazem HCl (Cardizem) 30 mg EVERY 6 HOURS ORAL 04/30/18 00:00 05/30/18 00:00 05/02/18 05:20 Heparin Sodium (Porcine) (Heparin 5000 units/ml) 5,000 units EVERY 12 HOURS SUBQ 04/29/18 21:00 05/29/18 20:59 05/02/18 08:32 Lidocaine (Xylocaine 1% MPF 5ml) 10 ml Q4H PRN HHN persistent cough 04/30/18 10:15 05/30/18 10:14 05/02/18 06:26 Lorazepam (Ativan 2mg/ml 1ml) 2 mg Q2H PRN IV For Anxiety 04/29/18 17:15 05/06/18 17:14 04/30/18 23:25 Meropenem 1 gm/ Sodium Chloride 55 ml @ 110 mls/hr Q8HR IVPB 04/29/18 22:00 05/04/18 21:59 05/02/18 05:20 Methadone HCl (Methadone HCl) 5 mg EVERY 12 HOURS ORAL 04/30/18 10:15 05/07/18 10:14 05/02/18 08:31 Methylprednisolone Sodium Succinate (Solu-MEDROL) 40 mg EVERY 8 HOURS IVP 05/02/18 14:00 06/01/18 13:59 Morphine Sulfate (Morphine Sulfate) 4 mg Q4H PRN IVP Severe Pain (Pain Scale 7-10) 04/29/18 17:15 05/06/18 17:14 05/02/18 05:21 Ondansetron HCl (Zofran) 4 mg Q6H PRN IVP Nausea & Vomiting 04/29/18 17:15 05/29/18 17:14 Polyethylene Glycol (Miralax) 17 gm DAILYPRN PRN ORAL Constipation 04/29/18 17:15 05/29/18 17:14 Vancomycin HCl (Vanco rx to dose) 1 ea DAILY PRN MISC PER PHARM 04/29/18 17:15 05/29/18 17:14 Vancomycin HCl/ Dextrose 250 ml @ 166.667 mls/hr Q12HR@1000,2200 IVPB 05/01/18 22:00 05/06/18 21:59 05/02/18 10:02 Anibal Trujillo MD May 02, 2018 10:35
[2018-05-02] MEDS ORDERED: Tubing IV Secondary IV ONE ×2 (10:41→15:09)
[2018-05-02] MEDS ORDERED: D5W 275ml ONE (10:41)
[2018-05-02] MEDS ORDERED: NS 275ml ONE (10:41)
[2018-05-02 12:00] VITALS: BP 111/90
[2018-05-02] MEDS: Piperacillin/Tazobactam 3.375 GM in D5W 110 ML IVPB SCH ×2 (12:18→20:27)
[2018-05-02] MEDS: Solu-MEDROL 40mg Inj IVP SCH ×2 (13:49→22:13)
[2018-05-02 15:58] VITALS: BP 129/80
[2018-05-02 20:00] VITALS: BP 125/80
[2018-05-03] VITALS: BP 100/69
[2018-05-03] MEDS: dilTIAZem HCl 30mg tab ORAL SCH ×5 (00:53→23:53)
[2018-05-03] MEDS: Albuterol/Ipratropium 3ml neb HHN PRN ×4 (03:16→22:04)
[2018-05-03] MEDS: Morphine Sulfate 4mg/ml Inj (IV/IM USE ONLY) IVP PRN ×3 (03:20→18:10)
[2018-05-03 04:00] VITALS: BP 131/80
[2018-05-03] MEDS: Piperacillin/Tazobactam 3.375 GM in D5W 110 ML IVPB SCH ×3 (04:03→20:00)
[2018-05-03 05:12] LABS: HEMATOCRIT 32.5 % (42.0-52.0); HEMOGLOBIN 10.9 G/DL (14.2-18.0); MEAN CORPUSCULAR VOLUME 87 FL (80-99); PLATELET COUNT 298 K/UL (150-450); RED BLOOD COUNT 3.74 M/UL (4.70-6.10); RED CELL DISTRIBUTION WIDTH 11.7 % (11.6-14.8); WHITE BLOOD COUNT 12.5 K/UL (4.8-10.8)
[2018-05-03 05:21] LABS: ANION GAP 7 mmol/L (5-15); BLOOD UREA NITROGEN 22 mg/dL (7-18); CALCIUM 9.7 MG/DL (8.5-10.1); CARBON DIOXIDE 29 MMOL/L (21-32); CHLORIDE 108 MMOL/L (98-107); SODIUM 144 MMOL/L (136-145)
[2018-05-03] MEDS: Solu-MEDROL 40mg Inj IVP SCH ×2 (06:47→20:29)
--- NOTE | 2018-05-03 07:30 | Pulmonology Progress Note ---
Assessment/Plan Assessment/Plan ASSESSMENT Acute on chronic, ventilator dependent respiratory failure Sepsis UTI with Proteus COPD with exacerbation Probably PNA with Pseudomonas Hypertension History of colon cancer Protein calorie malnutrition PLAN OF CARE JORDAN Vent support, trach care pulmonary toilet ATC and PRN abx ID follows blood cx prel negative sputum cx + Pseudomonas, Strep Gr G, urine cx +Proteus short pulse of steroids and taper soon f/up with CXR on Friday baseline ABG with CO2 retention, likely acute on chronic, keep same settings and continue steroids with tapering gentle IVF for 1-2 days venous duplex BLE negative DVT prophylaxis pain management bowel regimen cardio follows supportive care diet eval case discussed and evaluated by supervising physician Subjective Allergies: Coded Allergies: No Known Allergies (Unverified , 06/17/16) Subjective mild leukocytosis, afebrile more alert, slightly better tachycardia resolved Objective Last 24 Hour Vital Signs Date Time Temp Pulse Resp B/P (MAP) Pulse Ox O2 Delivery O2 Flow Rate FiO2 05/03/18 07:13 86 20 30 05/03/18 06:48 106 131/80 05/03/18 04:48 106 22 30 05/03/18 04:00 30 05/03/18 04:00 Mechanical Ventilator 05/03/18 04:00 97.9 93 19 131/80 (97) 99 05/03/18 04:00 87 05/03/18 03:24 106 18 100 Mechanical Ventilator 30 05/03/18 03:16 103 21 30 05/03/18 03:16 102 18 100 Mechanical Ventilator 30 05/03/18 03:16 30 05/03/18 01:16 102 20 30 05/03/18 00:53 80 100/69 05/03/18 00:00 Mechanical Ventilator 05/03/18 00:00 98.3 80 20 100/69 (79) 100 05/03/18 00:00 85 05/03/18 00:00 30 05/02/18 23:02 105 22 30 05/02/18 21:37 104 19 30 05/02/18 21:37 30 05/02/18 21:37 103 18 100 Mechanical Ventilator 30 05/02/18 20:00 Mechanical Ventilator 05/02/18 20:00 92 05/02/18 20:00 30 05/02/18 20:00 98.2 98 21 125/80 (95) 100 05/02/18 19:13 102 20 30 05/02/18 18:11 117 129/80 05/02/18 16:42 117 21 30 05/02/18 16:00 Mechanical Ventilator 05/02/18 16:00 30 05/02/18 16:00 126 05/02/18 15:58 99.3 127 18 129/80 (96) 99 05/02/18 15:20 100.5 05/02/18 14:46 133 21 30 05/02/18 12:43 130 18 30 05/02/18 12:18 119 111/90 05/02/18 12:00 100.5 119 18 111/90 (97) 99 05/02/18 12:00 Mechanical Ventilator 05/02/18 12:00 132 05/02/18 12:00 30 05/02/18 10:41 120 18 30 05/02/18 09:20 108 18 30 05/02/18 08:47 113 05/02/18 08:00 Mechanical Ventilator 05/02/18 08:00 98.4 117 18 103/73 (83) 100 05/02/18 08:00 30 Intake and Output 05/02/18 05/03/18 19:00 07:00 Intake Total 160.0 ml 400 ml Output Total 80 ml 700 ml Balance 80.0 ml -300 ml Intake Oral 50 ml 400 ml IV Total 110.0 ml Output Urine Total 80 ml 700 ml Objective General Appearance: no acute distress, Vent AC 700-18-30% HEENT: normocephalic, atraumatic, anicteric, status post trach - Portex#8, secretions thin, moderate amount, colorless Respiratory/Chest: decreased breath sounds Cardiovascular: SR on tele Abdomen: normal bowel sounds, soft, non tender Extremities: no edema, pedal pulses normal Neurologic/Psychiatric: abnormal gait, alert, oriented x 3 Musculoskeletal: atrophy - BLE Laboratory Tests 05/03/18 03:50: White Blood Count 12.5H, Red Blood Count 3.74L, Hemoglobin 10.9L, Hematocrit 32.5L, Mean Corpuscular Volume 87, Mean Corpuscular Hemoglobin 29.1, Mean Corpuscular Hemoglobin Concent 33.5, Red Cell Distribution Width 11.7, Platelet Count 298, Mean Platelet Volume 6.4L, Neutrophils (%) (Auto) , Lymphocytes (%) ( Auto) , Monocytes (%) (Auto) , Eosinophils (%) (Auto) , Basophils (%) (Auto) , Neutrophils % (Manual) [Pending], Lymphocytes % (Manual) [Pending], Platelet Estimate [Pending], Platelet Morphology [Pending], Sodium Level 144, Potassium Level 4.0, Chloride Level 108H, Carbon Dioxide Level 29, Anion Gap 7, Blood Urea Nitrogen 22H, Creatinine 1.0, Estimat Glomerular Filtration Rate > 60, Glucose Level 166H, Calcium Level 9.7 Current Medications Medications (Trade) Dose Ordered Sig/Shraddha Route PRN Reason Start Time Stop Time Status Last Admin Dose Admin Acetaminophen (Tylenol) 650 mg Q4H PRN ORAL FEVER 04/29/18 17:09 05/29/18 17:08 Albuterol/ Ipratropium (Albuterol/ Ipratropium) 3 ml Q4H PRN HHN Shortness of Breath 05/02/18 13:15 05/07/18 13:14 05/03/18 03:16 Dextrose (Dextrose 50%) 25 ml Q30M PRN IV Hypoglycemia 04/29/18 17:15 05/29/18 17:12 Dextrose (Dextrose 50%) 50 ml Q30M PRN IV hypoglycemia 04/29/18 17:15 05/29/18 17:14 Diltiazem HCl (Cardizem) 30 mg EVERY 6 HOURS ORAL 04/30/18 00:00 05/30/18 00:00 05/03/18 06:48 Heparin Sodium (Porcine) (Heparin 5000 units/ml) 5,000 units EVERY 12 HOURS SUBQ 04/29/18 21:00 05/29/18 20:59 05/02/18 20:31 Lidocaine (Xylocaine 1% MPF 5ml) 10 ml Q4H PRN HHN persistent cough 04/30/18 10:15 05/30/18 10:14 05/02/18 06:26 Lorazepam (Ativan 2mg/ml 1ml) 2 mg Q2H PRN IV For Anxiety 04/29/18 17:15 05/06/18 17:14 04/30/18 23:25 Methadone HCl (Methadone HCl) 5 mg EVERY 12 HOURS ORAL 04/30/18 10:15 05/07/18 10:14 05/02/18 20:28 Methylprednisolone Sodium Succinate (Solu-MEDROL) 40 mg EVERY 8 HOURS IVP 05/02/18 14:00 06/01/18 13:59 05/03/18 06:47 Morphine Sulfate (Morphine Sulfate) 4 mg Q4H PRN IVP Severe Pain (Pain Scale 7-10) 04/29/18 17:15 05/06/18 17:14 05/03/18 03:20 Ondansetron HCl (Zofran) 4 mg Q6H PRN IVP Nausea & Vomiting 04/29/18 17:15 05/29/18 17:14 Piperacillin Sod/ Tazobactam Sod 3.375 gm/Dextrose 110 ml @ 27.5 mls/hr Q8H IVPB 05/02/18 12:00 05/09/18 11:59 05/03/18 04:03 Polyethylene Glycol (Miralax) 17 gm DAILYPRN PRN ORAL Constipation 04/29/18 17:15 05/29/18 17:14 Katia Sequeira NP May 03, 2018 07:30
[2018-05-03 08:00] VITALS: BP 117/79
[2018-05-03] MEDS: Heparin 5000 units/ml inj SUBQ SCH ×2 (08:32→20:02)
--- NOTE | 2018-05-03 08:45 | General Progress Note ---
Assessment/Plan Problem List: (1) Acute respiratory failure ICD Codes: J96.00 - Acute respiratory failure, unspecified whether with hypoxia or hypercapnia SNOMED: 79038694 (2) UTI (urinary tract infection) due to Enterococcus ICD Codes: N39.0 - Urinary tract infection, site not specified; B95.2 - Enterococcus as the cause of diseases classified elsewhere SNOMED: 015440190496786 (3) COPD exacerbation ICD Codes: J44.1 - Chronic obstructive pulmonary disease with (acute) exacerbation SNOMED: 413086389, 651156075 (4) Sepsis ICD Codes: A41.9 - Sepsis, unspecified organism SNOMED: 38092265 (5) Acute renal failure (ARF) ICD Codes: N17.9 - Acute kidney failure, unspecified SNOMED: 91994338 (6) Fever ICD Codes: R50.9 - Fever, unspecified SNOMED: 805813269 Status: stable, progressing Assessment/Plan vent abx cbc bmp am Subjective Constitutional: Reports: weakness Allergies: Coded Allergies: No Known Allergies (Unverified , 06/17/16) All Systems: reviewed and negative except above Subjective trach vent asleep Objective Last 24 Hour Vital Signs Date Time Temp Pulse Resp B/P (MAP) Pulse Ox O2 Delivery O2 Flow Rate FiO2 05/03/18 08:00 30 05/03/18 08:00 97.6 85 18 117/79 (92) 98 05/03/18 07:13 86 20 30 05/03/18 06:48 106 131/80 05/03/18 04:48 106 22 30 05/03/18 04:00 30 05/03/18 04:00 Mechanical Ventilator 05/03/18 04:00 97.9 93 19 131/80 (97) 99 05/03/18 04:00 87 05/03/18 03:24 106 18 100 Mechanical Ventilator 30 05/03/18 03:16 103 21 30 05/03/18 03:16 102 18 100 Mechanical Ventilator 30 05/03/18 03:16 30 05/03/18 01:16 102 20 30 05/03/18 00:53 80 100/69 05/03/18 00:00 Mechanical Ventilator 05/03/18 00:00 98.3 80 20 100/69 (79) 100 05/03/18 00:00 85 05/03/18 00:00 30 05/02/18 23:02 105 22 30 05/02/18 21:37 104 19 30 05/02/18 21:37 30 05/02/18 21:37 103 18 100 Mechanical Ventilator 30 05/02/18 20:00 Mechanical Ventilator 05/02/18 20:00 92 05/02/18 20:00 30 05/02/18 20:00 98.2 98 21 125/80 (95) 100 05/02/18 19:13 102 20 30 05/02/18 18:11 117 129/80 05/02/18 16:42 117 21 30 05/02/18 16:00 Mechanical Ventilator 05/02/18 16:00 30 05/02/18 16:00 126 05/02/18 15:58 99.3 127 18 129/80 (96) 99 05/02/18 15:20 100.5 05/02/18 14:46 133 21 30 05/02/18 12:43 130 18 30 05/02/18 12:18 119 111/90 05/02/18 12:00 100.5 119 18 111/90 (97) 99 05/02/18 12:00 Mechanical Ventilator 05/02/18 12:00 132 05/02/18 12:00 30 05/02/18 10:41 120 18 30 05/02/18 09:20 108 18 30 05/02/18 08:47 113 Intake and Output 05/02/18 05/03/18 19:00 07:00 Intake Total 160.0 ml 592.50 ml Output Total 80 ml 700 ml Balance 80.0 ml -107.50 ml Intake Oral 50 ml 400 ml IV Total 110.0 ml 192.50 ml Output Urine Total 80 ml 700 ml Laboratory Tests 05/03/18 03:50: White Blood Count 12.5H, Red Blood Count 3.74L, Hemoglobin 10.9L, Hematocrit 32.5L, Mean Corpuscular Volume 87, Mean Corpuscular Hemoglobin 29.1, Mean Corpuscular Hemoglobin Concent 33.5, Red Cell Distribution Width 11.7, Platelet Count 298, Mean Platelet Volume 6.4L, Neutrophils (%) (Auto) , Lymphocytes (%) ( Auto) , Monocytes (%) (Auto) , Eosinophils (%) (Auto) , Basophils (%) (Auto) , Neutrophils % (Manual) [Pending], Lymphocytes % (Manual) [Pending], Platelet Estimate [Pending], Platelet Morphology [Pending], Sodium Level 144, Potassium Level 4.0, Chloride Level 108H, Carbon Dioxide Level 29, Anion Gap 7, Blood Urea Nitrogen 22H, Creatinine 1.0, Estimat Glomerular Filtration Rate > 60, Glucose Level 166H, Calcium Level 9.7 Height (Feet): 6 Height (Inches): 5.00 Weight (Pounds): 168 General Appearance: lethargic EENT: normal ENT inspection Neck: normal alignment Cardiovascular: normal peripheral pulses, normal rate, regular rhythm Respiratory/Chest: chest wall non-tender, lungs clear, normal breath sounds Abdomen: normal bowel sounds, non tender, soft Extremities: normal inspection Edema: no edema noted Arm (L), no edema noted Arm (R), no edema noted Leg (L), no edema noted Leg (R), no edema noted Pedal (L), no edema noted Pedal (R), no edema noted Generalized Neurologic: responsive, motor weakness Skin: normal pigmentation, warm/dry Elan Petersen DO May 03, 2018 08:45
[2018-05-03] MEDS ORDERED: Aspirin EC 81mg tab ORAL SCH (09:00)
[2018-05-03] MEDS ORDERED: NS 275ml ONE (10:50)
[2018-05-03] MEDS ORDERED: Tubing IV Secondary IV ONE (10:50)
[2018-05-03 12:00] VITALS: BP 127/85
[2018-05-03 16:00] VITALS: BP 109/75
--- NOTE | 2018-05-03 17:50 | Cardiology Progress Note ---
Assessment/Plan Assessment/Plan 1. Dyspnea due to bronchial airway disease, most likely acute exacerbation of COPD. 2D echocardiography shows normal LVEF. 2. Sinus tachycardia, adjust dose of calcium-channel marguerite. 3. History of diabetes mellitus, will consider aspirin and statin. 4. Ventilatory-drive respiratory failure, status post tracheostomy tube placement. 5. History of DVT. 6. History of colon cancer. 7. History of GERD. 8. History of metabolic encephalopathy. Subjective Subjective Sinus tachycardia at rate of 122. Objective Last 24 Hour Vital Signs Date Time Temp Pulse Resp B/P (MAP) Pulse Ox O2 Delivery O2 Flow Rate FiO2 05/03/18 17:09 75 22 30 05/03/18 16:00 77 05/03/18 16:00 Mechanical Ventilator 05/03/18 16:00 98.0 80 19 109/75 (86) 100 05/03/18 16:00 30 05/03/18 15:02 74 18 30 05/03/18 14:58 74 18 100 Mechanical Ventilator 30 05/03/18 14:50 30 05/03/18 14:48 74 18 100 Mechanical Ventilator 30 05/03/18 13:21 97.6 05/03/18 12:53 86 19 30 05/03/18 12:50 86 127/85 05/03/18 12:00 Mechanical Ventilator 05/03/18 12:00 97.5 86 19 127/85 (99) 100 05/03/18 12:00 62 05/03/18 12:00 30 05/03/18 10:51 77 18 30 05/03/18 09:53 89 20 100 Mechanical Ventilator 30 05/03/18 09:42 30 05/03/18 09:40 100 20 100 Mechanical Ventilator 30 05/03/18 08:45 84 18 30 05/03/18 08:00 30 05/03/18 08:00 88 05/03/18 08:00 Mechanical Ventilator 05/03/18 08:00 97.6 85 18 117/79 (92) 98 05/03/18 07:13 86 20 30 05/03/18 06:48 106 131/80 05/03/18 04:48 106 22 30 05/03/18 04:00 30 05/03/18 04:00 Mechanical Ventilator 05/03/18 04:00 97.9 93 19 131/80 (97) 99 05/03/18 04:00 87 05/03/18 03:24 106 18 100 Mechanical Ventilator 30 05/03/18 03:16 103 21 30 05/03/18 03:16 102 18 100 Mechanical Ventilator 30 05/03/18 03:16 30 05/03/18 01:16 102 20 30 05/03/18 00:53 80 100/69 05/03/18 00:00 Mechanical Ventilator 05/03/18 00:00 98.3 80 20 100/69 (79) 100 05/03/18 00:00 85 05/03/18 00:00 30 05/02/18 23:02 105 22 30 05/02/18 21:37 104 19 30 05/02/18 21:37 30 05/02/18 21:37 103 18 100 Mechanical Ventilator 30 05/02/18 20:00 Mechanical Ventilator 05/02/18 20:00 92 05/02/18 20:00 30 05/02/18 20:00 98.2 98 21 125/80 (95) 100 05/02/18 19:13 102 20 30 05/02/18 18:11 117 129/80 Intake and Output 05/02/18 05/03/18 18:59 06:59 Intake Total 160.0 ml 565.00 ml Output Total 80 ml 700 ml Balance 80.0 ml -135.00 ml Intake Oral 50 ml 400 ml IV Total 110.0 ml 165.00 ml Output Urine Total 80 ml 700 ml Laboratory Tests Test 05/03/18 03:50 05/03/18 09:20 White Blood Count 12.5 K/UL (4.8-10.8) H Red Blood Count 3.74 M/UL (4.70-6.10) L Hemoglobin 10.9 G/DL (14.2-18.0) L Hematocrit 32.5 % (42.0-52.0) L Mean Corpuscular Volume 87 FL (80-99) Mean Corpuscular Hemoglobin 29.1 PG (27.0-31.0) Mean Corpuscular Hemoglobin Concent 33.5 G/DL (32.0-36.0) Red Cell Distribution Width 11.7 % (11.6-14.8) Platelet Count 298 K/UL (150-450) Mean Platelet Volume 6.4 FL (6.5-10.1) L Neutrophils (%) (Auto) % (45.0-75.0) Lymphocytes (%) (Auto) % (20.0-45.0) Monocytes (%) (Auto) % (1.0-10.0) Eosinophils (%) (Auto) % (0.0-3.0) Basophils (%) (Auto) % (0.0-2.0) Differential Total Cells Counted 100 Neutrophils % (Manual) 89 % (45-75) H Lymphocytes % (Manual) 5 % (20-45) L Monocytes % (Manual) 4 % (1-10) Eosinophils % (Manual) 0 % (0-3) Basophils % (Manual) 0 % (0-2) Band Neutrophils 2 % (0-8) Platelet Estimate Adequate Platelet Morphology Normal Red Blood Cell Morphology Normal Sodium Level 144 MMOL/L (136-145) Potassium Level 4.0 MMOL/L (3.5-5.1) Chloride Level 108 MMOL/L (98-107) H Carbon Dioxide Level 29 MMOL/L (21-32) Anion Gap 7 mmol/L (5-15) Blood Urea Nitrogen 22 mg/dL (7-18) H Creatinine 1.0 MG/DL (0.55-1.30) Estimat Glomerular Filtration Rate > 60 mL/min (>60) Glucose Level 166 MG/DL (74-106) H Calcium Level 9.7 MG/DL (8.5-10.1) Arterial Blood pH 7.420 (7.350-7.450) Arterial Blood Partial Pressure CO2 50.1 mmHg (35.0-45.0) H Arterial Blood Partial Pressure O2 87.6 mmHg (75.0-100.0) Arterial Blood HCO3 31.8 mmol/L (22.0-26.0) H Arterial Blood Oxygen Saturation 96.3 % (95-100) Arterial Blood Base Excess 6.2 (-2-2) H Joseluis Test Positive Objective HEENT: Atraumatic and normocephalic. Anicteric. Pupils are equal, round, and reactive to light and accommodation. Conjunctival pallor. NECK: Presence of a tracheostomy tube. No carotid bruit. Carotid upstrokes 2+ bilaterally. CVS: Normal S1, S2. Regular. Tachycardic. No murmurs, gallops, or rubs. LUNGS: Expiratory wheezing throughout both lungs. Diminished breath sounds throughout. ABDOMEN: Soft, nontender, and nondistended. No hepatosplenomegaly. Positive bowel sounds. EXTREMITIES: No evidence of edema, clubbing, or cyanosis. Jose Pandya MD May 03, 2018 17:50
[2018-05-03 20:00] VITALS: BP 100/78
[2018-05-04] VITALS: BP 104/65
[2018-05-04] MEDS: Piperacillin/Tazobactam 3.375 GM in D5W 110 ML IVPB SCH ×3 (03:45→20:30)
[2018-05-04] MEDS: Morphine Sulfate 4mg/ml Inj (IV/IM USE ONLY) IVP PRN ×4 (03:46→23:24)
[2018-05-04 04:00] VITALS: BP 118/75
[2018-05-04] MEDS: dilTIAZem HCl 30mg tab ORAL SCH ×4 (05:00→23:47)
[2018-05-04 06:14] LABS: ANION GAP 3 mmol/L (5-15); BLOOD UREA NITROGEN 25 mg/dL (7-18); CALCIUM 9.5 MG/DL (8.5-10.1); CARBON DIOXIDE 32 MMOL/L (21-32); CHLORIDE 106 MMOL/L (98-107); CREATININE 1.2 MG/DL (0.55-1.30); SODIUM 141 MMOL/L (136-145)
[2018-05-04 06:15] LABS: HEMOGLOBIN 10.4 G/DL (14.2-18.0); MEAN CORPUSCULAR VOLUME 87 FL (80-99); PLATELET COUNT 330 K/UL (150-450); RED BLOOD COUNT 3.67 M/UL (4.70-6.10); WHITE BLOOD COUNT 13.1 K/UL (4.8-10.8)
[2018-05-04] MEDS: Albuterol/Ipratropium 3ml neb HHN PRN ×3 (07:09→19:33)
[2018-05-04 08:00] VITALS: BP 121/83
[2018-05-04] MEDS: Solu-MEDROL 40mg Inj IVP SCH (09:04)
[2018-05-04] MEDS: Heparin 5000 units/ml inj SUBQ SCH ×2 (09:04→20:31)
--- NOTE | 2018-05-04 10:12 | Pulmonology Progress Note ---
Assessment/Plan Problems: (1) Acute and chronic respiratory failure (2) Severe sepsis (3) COPD exacerbation (4) Hypertension Assessment/Plan dc iv fluids taper steroids respiratory treatment myers cultures, sputum has GNB iv abx, on zosyn trial of Licocain has been helpful Id evaluation appreciated low dose Methadone seems to help titrate vent setting f/u pulse oximeter dvt prophylaxis. Subjective ROS Limited/Unobtainable: No Interval Events: awake, less short of breath Allergies: Coded Allergies: No Known Allergies (Unverified , 06/17/16) Objective Last 24 Hour Vital Signs Date Time Temp Pulse Resp B/P (MAP) Pulse Ox O2 Delivery O2 Flow Rate FiO2 05/04/18 08:30 75 18 30 05/04/18 08:00 30 05/04/18 08:00 97.7 68 22 121/83 (96) 99 05/04/18 08:00 Mechanical Ventilator 05/04/18 07:14 79 18 100 Mechanical Ventilator 30 05/04/18 07:06 30 05/04/18 07:06 80 18 100 Mechanical Ventilator 30 05/04/18 07:03 70 18 30 05/04/18 05:12 61 19 30 05/04/18 05:00 67 118/75 05/04/18 04:15 67 05/04/18 04:00 97.6 84 18 118/75 (89) 100 05/04/18 04:00 30 05/04/18 04:00 Mechanical Ventilator 05/04/18 02:30 83 22 30 05/04/18 01:10 67 18 30 05/04/18 00:23 65 05/04/18 00:00 30 05/04/18 00:00 97.5 58 18 104/65 (78) 100 05/04/18 00:00 Mechanical Ventilator 05/03/18 23:53 58 104/65 05/03/18 23:15 64 18 30 05/03/18 22:14 78 18 100 Mechanical Ventilator 30 05/03/18 22:04 89 18 100 Mechanical Ventilator 30 05/03/18 22:04 30 05/03/18 21:15 82 19 30 05/03/18 20:08 87 19 30 05/03/18 20:00 98.0 88 18 100/78 (85) 100 05/03/18 20:00 Mechanical Ventilator 05/03/18 20:00 30 05/03/18 19:27 78 05/03/18 18:40 98.0 05/03/18 18:05 75 109/75 05/03/18 17:09 75 22 30 05/03/18 16:00 77 05/03/18 16:00 Mechanical Ventilator 05/03/18 16:00 98.0 80 19 109/75 (86) 100 05/03/18 16:00 30 05/03/18 15:02 74 18 30 05/03/18 14:58 74 18 100 Mechanical Ventilator 30 05/03/18 14:50 30 05/03/18 14:48 74 18 100 Mechanical Ventilator 30 05/03/18 12:53 86 19 30 05/03/18 12:50 86 127/85 05/03/18 12:00 Mechanical Ventilator 05/03/18 12:00 97.5 86 19 127/85 (99) 100 05/03/18 12:00 62 05/03/18 12:00 30 05/03/18 10:51 77 18 30 Intake and Output 05/03/18 05/04/18 19:00 07:00 Intake Total 962.5 ml 949.4 ml Output Total 275 ml 300 ml Balance 687.5 ml 649.4 ml Intake Oral 600 ml 200 ml IV Total 362.5 ml 749.4 ml Output Urine Total 275 ml 300 ml # Voids 1 General Appearance: cachetic HEENT: normocephalic, atraumatic Respiratory/Chest: chest wall non-tender, lungs clear Cardiovascular: normal peripheral pulses, normal rate Abdomen: normal bowel sounds, soft, non tender Extremities: no clubbing Skin: no lesions Neurologic/Psychiatric: clinical rehab liaison II-XII grossly normal Laboratory Tests 05/04/18 04:05: White Blood Count 13.1H, Red Blood Count 3.67L, Hemoglobin 10.4L, Hematocrit 32.0L, Mean Corpuscular Volume 87, Mean Corpuscular Hemoglobin 28.3, Mean Corpuscular Hemoglobin Concent 32.5, Red Cell Distribution Width 12.0, Platelet Count 330, Mean Platelet Volume 6.8, Neutrophils (%) (Auto) , Lymphocytes (%) ( Auto) , Monocytes (%) (Auto) , Eosinophils (%) (Auto) , Basophils (%) (Auto) , Neutrophils % (Manual) [Pending], Lymphocytes % (Manual) [Pending], Platelet Estimate [Pending], Platelet Morphology [Pending], Sodium Level 141, Potassium Level 4.0, Chloride Level 106, Carbon Dioxide Level 32, Anion Gap 3L, Blood Urea Nitrogen 25H, Creatinine 1.2, Estimat Glomerular Filtration Rate > 60, Glucose Level 138H, Calcium Level 9.5 Current Medications Medications (Trade) Dose Ordered Sig/Shraddha Route PRN Reason Start Time Stop Time Status Last Admin Dose Admin Acetaminophen (Tylenol) 650 mg Q4H PRN ORAL FEVER 04/29/18 17:09 05/29/18 17:08 Albuterol/ Ipratropium (Albuterol/ Ipratropium) 3 ml Q4H PRN HHN Shortness of Breath 05/02/18 13:15 05/07/18 13:14 05/04/18 07:09 Dextrose (Dextrose 50%) 25 ml Q30M PRN IV Hypoglycemia 04/29/18 17:15 05/29/18 17:12 Dextrose (Dextrose 50%) 50 ml Q30M PRN IV hypoglycemia 04/29/18 17:15 05/29/18 17:14 Diltiazem HCl (Cardizem) 30 mg EVERY 6 HOURS ORAL 04/30/18 00:00 05/30/18 00:00 05/03/18 18:05 Heparin Sodium (Porcine) (Heparin 5000 units/ml) 5,000 units EVERY 12 HOURS SUBQ 04/29/18 21:00 05/29/18 20:59 05/04/18 09:04 Lidocaine (Xylocaine 1% MPF 5ml) 10 ml Q4H PRN HHN persistent cough 04/30/18 10:15 05/30/18 10:14 05/02/18 06:26 Lorazepam (Ativan 2mg/ml 1ml) 2 mg Q2H PRN IV For Anxiety 04/29/18 17:15 05/06/18 17:14 04/30/18 23:25 Methadone HCl (Methadone HCl) 5 mg EVERY 12 HOURS ORAL 04/30/18 10:15 05/07/18 10:14 05/04/18 08:58 Methylprednisolone Sodium Succinate (Solu-MEDROL) 40 mg Q12HR IVP 05/03/18 21:00 06/01/18 20:59 05/04/18 09:04 Morphine Sulfate (Morphine Sulfate) 4 mg Q4H PRN IVP Severe Pain (Pain Scale 7-10) 04/29/18 17:15 05/06/18 17:14 05/04/18 03:46 Ondansetron HCl (Zofran) 4 mg Q6H PRN IVP Nausea & Vomiting 04/29/18 17:15 05/29/18 17:14 Piperacillin Sod/ Tazobactam Sod 3.375 gm/Dextrose 110 ml @ 27.5 mls/hr Q8H IVPB 05/02/18 12:00 05/09/18 11:59 05/04/18 03:45 Polyethylene Glycol (Miralax) 17 gm DAILYPRN PRN ORAL Constipation 04/29/18 17:15 05/29/18 17:14 Sodium Chloride 1,000 ml @ 50 mls/hr Q20H IV 05/03/18 09:30 06/02/18 09:29 05/04/18 05:00 Demetrius Andrade MD May 04, 2018 10:12
--- NOTE | 2018-05-04 10:23 | Infectious Diseases Prog Note ---
Assessment/Plan Assessment/Plan ASSESSMENT: The patient is a 67-year-old male with, Fever, Sp Leukocytosis, increased probable UIT : UCx: P mirabilis Probable HAPn (despite of negative chestx-ray) Scx: PSA and ( sterp GrpG and diphtheroids: colonizer ) Probable sepsis hx of Pneumonia MDR Pseudomonas/MRSA History of coag-negative staph and Acinetobacter bacteremia (December 2017) History of diabetes. Hypertension. Asthma History of colon cancer, status post hemicolectomy Right lower extremity DVT Pulmonary nodules PLAN: -continue the patient on Zoysn d# 3 / 10 05/02 Sp vancomycin and meropenem day #4 -Monitor CBC -Monitor BMP -Monitor cultures (blood, Sp) repeat -Monitor chest x-ray -Continue respiratory support Subjective Allergies: Coded Allergies: No Known Allergies (Unverified , 06/17/16) Subjective afebrile Objective Vital Signs Last 24 Hour Vital Signs Date Time Temp Pulse Resp B/P (MAP) Pulse Ox O2 Delivery O2 Flow Rate FiO2 05/04/18 08:30 75 18 30 05/04/18 08:00 30 05/04/18 08:00 97.7 68 22 121/83 (96) 99 05/04/18 08:00 Mechanical Ventilator 05/04/18 07:30 64 05/04/18 07:14 79 18 100 Mechanical Ventilator 30 05/04/18 07:06 30 05/04/18 07:06 80 18 100 Mechanical Ventilator 30 05/04/18 07:03 70 18 30 05/04/18 05:12 61 19 30 05/04/18 05:00 67 118/75 05/04/18 04:15 67 05/04/18 04:00 97.6 84 18 118/75 (89) 100 05/04/18 04:00 30 05/04/18 04:00 Mechanical Ventilator 05/04/18 02:30 83 22 30 05/04/18 01:10 67 18 30 05/04/18 00:23 65 05/04/18 00:00 30 05/04/18 00:00 97.5 58 18 104/65 (78) 100 05/04/18 00:00 Mechanical Ventilator 05/03/18 23:53 58 104/65 05/03/18 23:15 64 18 30 05/03/18 22:14 78 18 100 Mechanical Ventilator 30 05/03/18 22:04 89 18 100 Mechanical Ventilator 30 05/03/18 22:04 30 05/03/18 21:15 82 19 30 05/03/18 20:08 87 19 30 05/03/18 20:00 98.0 88 18 100/78 (85) 100 05/03/18 20:00 Mechanical Ventilator 05/03/18 20:00 30 05/03/18 19:27 78 05/03/18 18:40 98.0 05/03/18 18:05 75 109/75 05/03/18 17:09 75 22 30 05/03/18 16:00 77 05/03/18 16:00 Mechanical Ventilator 05/03/18 16:00 98.0 80 19 109/75 (86) 100 05/03/18 16:00 30 05/03/18 15:02 74 18 30 05/03/18 14:58 74 18 100 Mechanical Ventilator 30 05/03/18 14:50 30 05/03/18 14:48 74 18 100 Mechanical Ventilator 30 05/03/18 12:53 86 19 30 05/03/18 12:50 86 127/85 05/03/18 12:00 Mechanical Ventilator 05/03/18 12:00 97.5 86 19 127/85 (99) 100 05/03/18 12:00 62 05/03/18 12:00 30 05/03/18 10:51 77 18 30 Height (Feet): 6 Height (Inches): 5.00 Weight (Pounds): 168 HEENT: atraumatic Respiratory/Chest: no respiratory distress Cardiovascular: regular rhythm Abdomen: no organomegaly Laboratory Tests Test 05/04/18 04:05 White Blood Count 13.1 K/UL (4.8-10.8) H Red Blood Count 3.67 M/UL (4.70-6.10) L Hemoglobin 10.4 G/DL (14.2-18.0) L Hematocrit 32.0 % (42.0-52.0) L Mean Corpuscular Volume 87 FL (80-99) Mean Corpuscular Hemoglobin 28.3 PG (27.0-31.0) Mean Corpuscular Hemoglobin Concent 32.5 G/DL (32.0-36.0) Red Cell Distribution Width 12.0 % (11.6-14.8) Platelet Count 330 K/UL (150-450) Mean Platelet Volume 6.8 FL (6.5-10.1) Neutrophils (%) (Auto) % (45.0-75.0) Lymphocytes (%) (Auto) % (20.0-45.0) Monocytes (%) (Auto) % (1.0-10.0) Eosinophils (%) (Auto) % (0.0-3.0) Basophils (%) (Auto) % (0.0-2.0) Neutrophils % (Manual) Pending Lymphocytes % (Manual) Pending Platelet Estimate Pending Platelet Morphology Pending Sodium Level 141 MMOL/L (136-145) Potassium Level 4.0 MMOL/L (3.5-5.1) Chloride Level 106 MMOL/L (98-107) Carbon Dioxide Level 32 MMOL/L (21-32) Anion Gap 3 mmol/L (5-15) L Blood Urea Nitrogen 25 mg/dL (7-18) H Creatinine 1.2 MG/DL (0.55-1.30) Estimat Glomerular Filtration Rate > 60 mL/min (>60) Glucose Level 138 MG/DL (74-106) H Calcium Level 9.5 MG/DL (8.5-10.1) Current Medications Medications (Trade) Dose Ordered Sig/Shraddha Route PRN Reason Start Time Stop Time Status Last Admin Dose Admin Acetaminophen (Tylenol) 650 mg Q4H PRN ORAL FEVER 04/29/18 17:09 05/29/18 17:08 Albuterol/ Ipratropium (Albuterol/ Ipratropium) 3 ml Q4H PRN HHN Shortness of Breath 05/02/18 13:15 05/07/18 13:14 05/04/18 07:09 Dextrose (Dextrose 50%) 25 ml Q30M PRN IV Hypoglycemia 04/29/18 17:15 05/29/18 17:12 Dextrose (Dextrose 50%) 50 ml Q30M PRN IV hypoglycemia 04/29/18 17:15 05/29/18 17:14 Diltiazem HCl (Cardizem) 30 mg EVERY 6 HOURS ORAL 04/30/18 00:00 05/30/18 00:00 05/03/18 18:05 Heparin Sodium (Porcine) (Heparin 5000 units/ml) 5,000 units EVERY 12 HOURS SUBQ 10/24/18 21:00 05/29/18 20:59 05/04/18 09:04 Lidocaine (Xylocaine 1% MPF 5ml) 10 ml Q4H PRN HHN persistent cough 04/30/18 10:15 05/30/18 10:14 05/02/18 06:26 Lorazepam (Ativan 2mg/ml 1ml) 2 mg Q2H PRN IV For Anxiety 04/29/18 17:15 05/06/18 17:14 04/30/18 23:25 Methadone HCl (Methadone HCl) 5 mg EVERY 12 HOURS ORAL 04/30/18 10:15 05/07/18 10:14 05/04/18 08:58 Morphine Sulfate (Morphine Sulfate) 4 mg Q4H PRN IVP Severe Pain (Pain Scale 7-10) 04/29/18 17:15 05/06/18 17:14 05/04/18 03:46 Ondansetron HCl (Zofran) 4 mg Q6H PRN IVP Nausea & Vomiting 04/29/18 17:15 05/29/18 17:14 Piperacillin Sod/ Tazobactam Sod 3.375 gm/Dextrose 110 ml @ 27.5 mls/hr Q8H IVPB 05/02/18 12:00 05/09/18 11:59 05/04/18 03:45 Polyethylene Glycol (Miralax) 17 gm DAILYPRN PRN ORAL Constipation 04/29/18 17:15 05/29/18 17:14 Anibal Trujillo MD May 04, 2018 10:23
[2018-05-04 12:00] VITALS: BP 154/99
--- NOTE | 2018-05-04 12:20 | Diagnostic Imaging Report ---
APPROVED REPORT CPT Code: 59130 Present Symptoms Comments: BILATERAL LEGS PAIN. BILATERAL: Imaging reveals a patent deep venous system bilaterally. There is no evidence of thrombus within the femoral, popliteal or tibial segments. The greater saphenous veins are also within normal limits. Doppler indicates normal spontaneous flow within these segments.
--- NOTE | 2018-05-04 13:07 | Diagnostic Imaging Report ---
Indication: Dyspnea Comparison: 04/29/2018 A single view chest radiograph was obtained. Findings: Hazy infiltrate suspected in the right upper lobe. Heart size is stable. Tracheostomy noted. IMPRESSION: Please correlate clinically. No significant change. However possible hazy infiltrate right upper lobe noted.
--- NOTE | 2018-05-04 13:39 | General Progress Note ---
Assessment/Plan Problem List: (1) Acute respiratory failure ICD Codes: J96.00 - Acute respiratory failure, unspecified whether with hypoxia or hypercapnia SNOMED: 00464468 (2) UTI (urinary tract infection) due to Enterococcus ICD Codes: N39.0 - Urinary tract infection, site not specified; B95.2 - Enterococcus as the cause of diseases classified elsewhere SNOMED: 810099291288962 (3) COPD exacerbation ICD Codes: J44.1 - Chronic obstructive pulmonary disease with (acute) exacerbation SNOMED: 226506226, 143279655 (4) Sepsis ICD Codes: A41.9 - Sepsis, unspecified organism SNOMED: 34230282 (5) Acute renal failure (ARF) ICD Codes: N17.9 - Acute kidney failure, unspecified SNOMED: 29996892 (6) Fever ICD Codes: R50.9 - Fever, unspecified SNOMED: 290349814 Status: stable, progressing Assessment/Plan vent abx cbc bmp am Subjective Constitutional: Reports: weakness Allergies: Coded Allergies: No Known Allergies (Unverified , 06/17/16) All Systems: reviewed and negative except above Subjective trach vent asleep Objective Last 24 Hour Vital Signs Date Time Temp Pulse Resp B/P (MAP) Pulse Ox O2 Delivery O2 Flow Rate FiO2 05/04/18 13:14 85 21 100 Mechanical Ventilator 30 05/04/18 13:14 30 05/04/18 13:11 86 21 30 05/04/18 12:30 99 154/99 05/04/18 12:00 99 05/04/18 12:00 30 05/04/18 12:00 97.7 94 20 154/99 (117) 98 05/04/18 12:00 Mechanical Ventilator 05/04/18 11:20 79 20 30 05/04/18 08:30 75 18 30 05/04/18 08:00 30 05/04/18 08:00 97.7 68 22 121/83 (96) 99 05/04/18 08:00 Mechanical Ventilator 05/04/18 07:30 64 05/04/18 07:14 79 18 100 Mechanical Ventilator 30 05/04/18 07:06 30 05/04/18 07:06 80 18 100 Mechanical Ventilator 30 05/04/18 07:03 70 18 30 05/04/18 05:12 61 19 30 05/04/18 05:00 67 118/75 05/04/18 04:15 67 05/04/18 04:00 97.6 84 18 118/75 (89) 100 05/04/18 04:00 30 05/04/18 04:00 Mechanical Ventilator 05/04/18 02:30 83 22 30 05/04/18 01:10 67 18 30 05/04/18 00:23 65 05/04/18 00:00 30 05/04/18 00:00 97.5 58 18 104/65 (78) 100 05/04/18 00:00 Mechanical Ventilator 05/03/18 23:53 58 104/65 05/03/18 23:15 64 18 30 05/03/18 22:14 78 18 100 Mechanical Ventilator 30 05/03/18 22:04 89 18 100 Mechanical Ventilator 30 05/03/18 22:04 30 05/03/18 21:15 82 19 30 05/03/18 20:08 87 19 30 05/03/18 20:00 98.0 88 18 100/78 (85) 100 05/03/18 20:00 Mechanical Ventilator 05/03/18 20:00 30 05/03/18 19:27 78 05/03/18 18:40 98.0 05/03/18 18:05 75 109/75 05/03/18 17:09 75 22 30 05/03/18 16:00 77 05/03/18 16:00 Mechanical Ventilator 05/03/18 16:00 98.0 80 19 109/75 (86) 100 05/03/18 16:00 30 05/03/18 15:02 74 18 30 05/03/18 14:58 74 18 100 Mechanical Ventilator 30 05/03/18 14:50 30 05/03/18 14:48 74 18 100 Mechanical Ventilator 30 Intake and Output 05/03/18 05/04/18 19:00 07:00 Intake Total 962.5 ml 949.4 ml Output Total 275 ml 300 ml Balance 687.5 ml 649.4 ml Intake Oral 600 ml 200 ml IV Total 362.5 ml 749.4 ml Output Urine Total 275 ml 300 ml # Voids 1 Laboratory Tests 05/04/18 04:05: White Blood Count 13.1H, Red Blood Count 3.67L, Hemoglobin 10.4L, Hematocrit 32.0L, Mean Corpuscular Volume 87, Mean Corpuscular Hemoglobin 28.3, Mean Corpuscular Hemoglobin Concent 32.5, Red Cell Distribution Width 12.0, Platelet Count 330, Mean Platelet Volume 6.8, Neutrophils (%) (Auto) , Lymphocytes (%) ( Auto) , Monocytes (%) (Auto) , Eosinophils (%) (Auto) , Basophils (%) (Auto) , Differential Total Cells Counted 100, Neutrophils % (Manual) 85H, Lymphocytes % (Manual) 7L, Monocytes % (Manual) 8, Eosinophils % (Manual) 0, Basophils % ( Manual) 0, Band Neutrophils 0, Platelet Estimate Adequate, Platelet Morphology Normal, Hypochromasia 1+, Anisocytosis 1+, Sodium Level 141, Potassium Level 4.0 , Chloride Level 106, Carbon Dioxide Level 32, Anion Gap 3L, Blood Urea Nitrogen 25H, Creatinine 1.2, Estimat Glomerular Filtration Rate > 60, Glucose Level 138H, Calcium Level 9.5 Height (Feet): 6 Height (Inches): 5.00 Weight (Pounds): 168 General Appearance: lethargic EENT: normal ENT inspection Neck: normal alignment Cardiovascular: normal peripheral pulses, normal rate, regular rhythm Respiratory/Chest: chest wall non-tender, lungs clear, normal breath sounds Abdomen: normal bowel sounds, non tender, soft Extremities: normal inspection Edema: no edema noted Arm (L), no edema noted Arm (R), no edema noted Leg (L), no edema noted Leg (R), no edema noted Pedal (L), no edema noted Pedal (R), no edema noted Generalized Neurologic: motor weakness Skin: normal pigmentation, warm/dry Elan Petersen DO May 04, 2018 13:39
[2018-05-04] MEDS ORDERED: 1/2 NS 1000ml IV ONE (14:36)
[2018-05-04 16:00] VITALS: BP 106/78
--- NOTE | 2018-05-04 18:53 | Cardiology Progress Note ---
Assessment/Plan Assessment/Plan 1. Dyspnea likely pulmonary in origin, due to acute exacerbation of COPD. 2D echocardiography shows normal LVEF. 2. Sinus tachycardia, resolved, adjust dose of calcium-channel marguerite. 3. History of diabetes mellitus, will consider aspirin and statin. 4. Ventilatory-drive respiratory failure, status post tracheostomy tube placement. 5. History of DVT. 6. History of colon cancer. 7. History of GERD. 8. History of metabolic encephalopathy. Subjective Subjective Sinus rhythm at rate of 62. Objective Last 24 Hour Vital Signs Date Time Temp Pulse Resp B/P (MAP) Pulse Ox O2 Delivery O2 Flow Rate FiO2 05/04/18 18:05 62 131/86 05/04/18 16:30 95 18 30 05/04/18 16:00 Mechanical Ventilator 05/04/18 16:00 30 05/04/18 16:00 82 05/04/18 16:00 97.9 77 20 106/78 (87) 99 05/04/18 14:40 91 18 30 05/04/18 14:40 90 18 Mechanical Ventilator 15.0 30 05/04/18 13:14 85 21 100 Mechanical Ventilator 30 05/04/18 13:14 30 05/04/18 13:11 86 21 30 05/04/18 12:30 99 154/99 05/04/18 12:00 99 05/04/18 12:00 30 05/04/18 12:00 97.7 94 20 154/99 (117) 98 05/04/18 12:00 Mechanical Ventilator 05/04/18 11:20 79 20 30 05/04/18 08:30 75 18 30 05/04/18 08:00 30 05/04/18 08:00 97.7 68 22 121/83 (96) 99 05/04/18 08:00 Mechanical Ventilator 05/04/18 07:30 64 05/04/18 07:14 79 18 100 Mechanical Ventilator 30 05/04/18 07:06 30 05/04/18 07:06 80 18 100 Mechanical Ventilator 30 05/04/18 07:03 70 18 30 05/04/18 05:12 61 19 30 05/04/18 05:00 67 118/75 05/04/18 04:15 67 05/04/18 04:00 97.6 84 18 118/75 (89) 100 05/04/18 04:00 30 05/04/18 04:00 Mechanical Ventilator 05/04/18 02:30 83 22 30 05/04/18 01:10 67 18 30 05/04/18 00:23 65 05/04/18 00:00 30 05/04/18 00:00 97.5 58 18 104/65 (78) 100 05/04/18 00:00 Mechanical Ventilator 05/03/18 23:53 58 104/65 05/03/18 23:15 64 18 30 05/03/18 22:14 78 18 100 Mechanical Ventilator 30 05/03/18 22:04 89 18 100 Mechanical Ventilator 30 05/03/18 22:04 30 05/03/18 21:15 82 19 30 05/03/18 20:08 87 19 30 05/03/18 20:00 98.0 88 18 100/78 (85) 100 05/03/18 20:00 Mechanical Ventilator 05/03/18 20:00 30 05/03/18 19:27 78 Intake and Output 05/03/18 05/04/18 18:59 06:59 Intake Total 940.0 ml 921.9 ml Output Total 275 ml 300 ml Balance 665.0 ml 621.9 ml Intake Oral 600 ml 200 ml IV Total 340.0 ml 721.9 ml Output Urine Total 275 ml 300 ml # Voids 1 Laboratory Tests Test 05/04/18 04:05 White Blood Count 13.1 K/UL (4.8-10.8) H Red Blood Count 3.67 M/UL (4.70-6.10) L Hemoglobin 10.4 G/DL (14.2-18.0) L Hematocrit 32.0 % (42.0-52.0) L Mean Corpuscular Volume 87 FL (80-99) Mean Corpuscular Hemoglobin 28.3 PG (27.0-31.0) Mean Corpuscular Hemoglobin Concent 32.5 G/DL (32.0-36.0) Red Cell Distribution Width 12.0 % (11.6-14.8) Platelet Count 330 K/UL (150-450) Mean Platelet Volume 6.8 FL (6.5-10.1) Neutrophils (%) (Auto) % (45.0-75.0) Lymphocytes (%) (Auto) % (20.0-45.0) Monocytes (%) (Auto) % (1.0-10.0) Eosinophils (%) (Auto) % (0.0-3.0) Basophils (%) (Auto) % (0.0-2.0) Differential Total Cells Counted 100 Neutrophils % (Manual) 85 % (45-75) H Lymphocytes % (Manual) 7 % (20-45) L Monocytes % (Manual) 8 % (1-10) Eosinophils % (Manual) 0 % (0-3) Basophils % (Manual) 0 % (0-2) Band Neutrophils 0 % (0-8) Platelet Estimate Adequate Platelet Morphology Normal Hypochromasia 1+ Anisocytosis 1+ Sodium Level 141 MMOL/L (136-145) Potassium Level 4.0 MMOL/L (3.5-5.1) Chloride Level 106 MMOL/L (98-107) Carbon Dioxide Level 32 MMOL/L (21-32) Anion Gap 3 mmol/L (5-15) L Blood Urea Nitrogen 25 mg/dL (7-18) H Creatinine 1.2 MG/DL (0.55-1.30) Estimat Glomerular Filtration Rate > 60 mL/min (>60) Glucose Level 138 MG/DL (74-106) H Calcium Level 9.5 MG/DL (8.5-10.1) Objective HEENT: Atraumatic and normocephalic. Anicteric. Pupils are equal, round, and reactive to light and accommodation. Conjunctival pallor. NECK: Presence of a tracheostomy tube. No carotid bruit. Carotid upstrokes 2+ bilaterally. CVS: Normal S1, S2. Regular. Tachycardic. No murmurs, gallops, or rubs. LUNGS: Expiratory wheezing throughout both lungs. Diminished breath sounds throughout. ABDOMEN: Soft, nontender, and nondistended. No hepatosplenomegaly. Positive bowel sounds. EXTREMITIES: No evidence of edema, clubbing, or cyanosis. Jose Pandya MD May 04, 2018 18:53
[2018-05-04 20:00] VITALS: BP 144/98
[2018-05-05] VITALS: BP 115/82
[2018-05-05 04:00] VITALS: BP 130/79
[2018-05-05] MEDS: Piperacillin/Tazobactam 3.375 GM in D5W 110 ML IVPB SCH ×3 (04:02→20:08)
[2018-05-05] MEDS: Morphine Sulfate 4mg/ml Inj (IV/IM USE ONLY) IVP PRN ×4 (04:46→19:19)
[2018-05-05] MEDS: dilTIAZem HCl 30mg tab ORAL SCH ×3 (05:14→18:18)
[2018-05-05] MEDS: Albuterol/Ipratropium 3ml neb HHN PRN ×4 (05:32→19:30)
[2018-05-05 05:55] LABS: BASOPHILS % (AUTO) 1.1 % (0.0-2.0); HEMATOCRIT 32.2 % (42.0-52.0); HEMOGLOBIN 10.9 G/DL (14.2-18.0); LYMPHOCYTES % (AUTO) 11.1 % (20.0-45.0); MEAN CORPUSCULAR VOLUME 86 FL (80-99); MONOCYTES % (AUTO) 10.4 % (1.0-10.0); NEUTROPHILS % (AUTO) 77.3 % (45.0-75.0); PLATELET COUNT 345 K/UL (150-450); RED BLOOD COUNT 3.73 M/UL (4.70-6.10); RED CELL DISTRIBUTION WIDTH 11.9 % (11.6-14.8); WHITE BLOOD COUNT 12.7 K/UL (4.8-10.8)
[2018-05-05 06:18] LABS: ALANINE AMINOTRANSFERASE 16 U/L (12-78); ALBUMIN 2.4 G/DL (3.4-5.0); ALBUMIN/GLOBULIN RATIO 0.5 (1.0-2.7); ALKALINE PHOSPHATASE 113 U/L (46-116); ANION GAP 8 mmol/L (5-15); ASPARTATE AMINO TRANSFERASE 12 U/L (15-37); BILIRUBIN,TOTAL 0.4 MG/DL (0.2-1.0); BLOOD UREA NITROGEN 23 mg/dL (7-18); CALCIUM 9.1 MG/DL (8.5-10.1); CARBON DIOXIDE 30 MMOL/L (21-32); CHLORIDE 105 MMOL/L (98-107); PHOSPHORUS 3.3 MG/DL (2.5-4.9); SODIUM 143 MMOL/L (136-145)
[2018-05-05 08:00] VITALS: BP 122/75
[2018-05-05] MEDS: Heparin 5000 units/ml inj SUBQ SCH ×2 (08:58→20:10)
--- NOTE | 2018-05-05 09:13 | Pulmonology Progress Note ---
Assessment/Plan Problems: (1) Acute and chronic respiratory failure (2) Severe sepsis (3) COPD exacerbation (4) Hypertension Assessment/Plan improving respiratory treatment myers cultures, sputum has GNB iv abx, on zosyn trial of Licocain has been helpful Id evaluation appreciated low dose Methadone seems to help titrate vent setting f/u pulse oximeter dvt prophylaxis. dc planning Subjective ROS Limited/Unobtainable: No Constitutional: Reports: no symptoms HEENT: Repors: no symptoms Respiratory: Reports: no symptoms Allergies: Coded Allergies: No Known Allergies (Unverified , 06/17/16) Objective Last 24 Hour Vital Signs Date Time Temp Pulse Resp B/P (MAP) Pulse Ox O2 Delivery O2 Flow Rate FiO2 05/05/18 07:42 30 05/05/18 07:42 73 20 100 Mechanical Ventilator 30 05/05/18 07:42 73 20 Mechanical Ventilator 15.0 30 05/05/18 07:34 94 23 30 05/05/18 05:43 69 18 100 Mechanical Ventilator 30 05/05/18 05:32 59 18 100 Mechanical Ventilator 30 05/05/18 05:32 30 05/05/18 05:27 58 18 30 05/05/18 05:14 61 130/79 05/05/18 04:45 69 05/05/18 04:00 98.0 80 16 130/79 (96) 99 05/05/18 04:00 30 05/05/18 04:00 Mechanical Ventilator 05/05/18 03:34 69 18 30 05/05/18 01:02 54 20 30 05/05/18 00:00 97.9 62 18 115/82 (93) 100 05/05/18 00:00 Mechanical Ventilator 05/04/18 23:47 62 115/82 05/04/18 23:26 61 18 30 05/04/18 23:24 66 05/04/18 20:55 82 23 30 05/04/18 20:00 Mechanical Ventilator 05/04/18 20:00 98.2 96 18 144/98 (113) 99 05/04/18 20:00 30 05/04/18 19:37 71 21 100 Mechanical Ventilator 30 05/04/18 19:34 30 05/04/18 19:33 61 21 99 Mechanical Ventilator 30 05/04/18 19:32 69 05/04/18 19:20 88 22 30 05/04/18 18:05 62 131/86 05/04/18 16:30 95 18 30 05/04/18 16:00 Mechanical Ventilator 05/04/18 16:00 30 05/04/18 16:00 82 05/04/18 16:00 97.9 77 20 106/78 (87) 99 05/04/18 14:40 91 18 30 05/04/18 14:40 90 18 Mechanical Ventilator 15.0 30 05/04/18 13:14 85 21 100 Mechanical Ventilator 30 05/04/18 13:14 30 05/04/18 13:11 86 21 30 05/04/18 12:30 99 154/99 05/04/18 12:00 99 05/04/18 12:00 30 05/04/18 12:00 97.7 94 20 154/99 (117) 98 05/04/18 12:00 Mechanical Ventilator 05/04/18 11:20 79 20 30 Intake and Output 05/04/18 05/05/18 19:00 07:00 Intake Total 769.767 ml 192.50 ml Output Total 500 ml 350 ml Balance 269.767 ml -157.50 ml Intake Oral 480 ml IV Total 289.767 ml 192.50 ml Output Urine Total 500 ml 350 ml General Appearance: WD/WN HEENT: normocephalic, atraumatic Respiratory/Chest: chest wall non-tender, lungs clear Cardiovascular: normal peripheral pulses, normal rate Abdomen: normal bowel sounds, soft, non tender, no scars Extremities: no cyanosis Skin: no rash, no lesions Neurologic/Psychiatric: no motor/sensory deficits, abnormal gait Lymphatic: no neck adenopathy Microbiology Date/Time Source Procedure Growth Status 05/04/18 15:30 Sputum Gram Stain Pending Resulted 05/04/18 15:30 Sputum Sputum Culture - Preliminary Resulted Laboratory Tests 05/05/18 05:30: White Blood Count 12.7H, Red Blood Count 3.73L, Hemoglobin 10.9L, Hematocrit 32.2L, Mean Corpuscular Volume 86, Mean Corpuscular Hemoglobin 29.1, Mean Corpuscular Hemoglobin Concent 33.7, Red Cell Distribution Width 11.9, Platelet Count 345, Mean Platelet Volume 6.8, Neutrophils (%) (Auto) 77.3H, Lymphocytes ( %) (Auto) 11.1L, Monocytes (%) (Auto) 10.4H, Eosinophils (%) (Auto) 0.0, Basophils (%) (Auto) 1.1, Sodium Level 143, Potassium Level 4.0, Chloride Level 105, Carbon Dioxide Level 30, Anion Gap 8, Blood Urea Nitrogen 23H, Creatinine 1.0, Estimat Glomerular Filtration Rate > 60, Glucose Level 120H, Calcium Level 9.1, Phosphorus Level 3.3, Magnesium Level 2.6H, Total Bilirubin 0.4, Aspartate Amino Transf (AST/SGOT) 12L, Alanine Aminotransferase (ALT/SGPT) 16, Alkaline Phosphatase 113, Total Protein 7.6, Albumin 2.4L, Globulin 5.2, Albumin/ Globulin Ratio 0.5L Current Medications Medications (Trade) Dose Ordered Sig/Shraddha Route PRN Reason Start Time Stop Time Status Last Admin Dose Admin Acetaminophen (Tylenol) 650 mg Q4H PRN ORAL FEVER 04/29/18 17:09 05/29/18 17:08 Albuterol/ Ipratropium (Albuterol/ Ipratropium) 3 ml Q4H PRN HHN Shortness of Breath 05/02/18 13:15 05/07/18 13:14 05/05/18 07:41 Dextrose (Dextrose 50%) 25 ml Q30M PRN IV Hypoglycemia 04/29/18 17:15 05/29/18 17:12 Dextrose (Dextrose 50%) 50 ml Q30M PRN IV hypoglycemia 04/29/18 17:15 05/29/18 17:14 Diltiazem HCl (Cardizem) 30 mg EVERY 6 HOURS ORAL 04/30/18 00:00 05/30/18 00:00 05/04/18 18:05 Heparin Sodium (Porcine) (Heparin 5000 units/ml) 5,000 units EVERY 12 HOURS SUBQ 04/29/18 21:00 05/29/18 20:59 05/05/18 08:58 Lidocaine (Xylocaine 1% MPF 5ml) 10 ml Q4H PRN HHN persistent cough 04/30/18 10:15 05/30/18 10:14 05/02/18 06:26 Lorazepam (Ativan 2mg/ml 1ml) 2 mg Q2H PRN IV For Anxiety 04/29/18 17:15 05/06/18 17:14 04/30/18 23:25 Methadone HCl (Methadone HCl) 5 mg EVERY 12 HOURS ORAL 04/30/18 10:15 05/07/18 10:14 05/05/18 08:56 Morphine Sulfate (Morphine Sulfate) 4 mg Q4H PRN IVP Severe Pain (Pain Scale 7-10) 04/29/18 17:15 05/06/18 17:14 05/05/18 08:57 Ondansetron HCl (Zofran) 4 mg Q6H PRN IVP Nausea & Vomiting 04/29/18 17:15 05/29/18 17:14 Piperacillin Sod/ Tazobactam Sod 3.375 gm/Dextrose 110 ml @ 27.5 mls/hr Q8H IVPB 05/02/18 12:00 05/09/18 11:59 05/05/18 04:02 Polyethylene Glycol (Miralax) 17 gm DAILYPRN PRN ORAL Constipation 04/29/18 17:15 05/29/18 17:14 Demetrius Andrade MD May 05, 2018 09:13
[2018-05-05 12:00] VITALS: BP 114/81
[2018-05-05] MEDS: Lidocaine 1% MPF 10mg/ml 5ml HHN PRN (14:41)
--- NOTE | 2018-05-05 14:50 | General Progress Note ---
Assessment/Plan Problem List: (1) Acute respiratory failure ICD Codes: J96.00 - Acute respiratory failure, unspecified whether with hypoxia or hypercapnia SNOMED: 01296210 (2) UTI (urinary tract infection) due to Enterococcus ICD Codes: N39.0 - Urinary tract infection, site not specified; B95.2 - Enterococcus as the cause of diseases classified elsewhere SNOMED: 964818353009517 (3) COPD exacerbation ICD Codes: J44.1 - Chronic obstructive pulmonary disease with (acute) exacerbation SNOMED: 118381975, 013896418 (4) Sepsis ICD Codes: A41.9 - Sepsis, unspecified organism SNOMED: 20794355 (5) Acute renal failure (ARF) ICD Codes: N17.9 - Acute kidney failure, unspecified SNOMED: 96148454 (6) Fever ICD Codes: R50.9 - Fever, unspecified SNOMED: 687153309 Status: stable, progressing Assessment/Plan vent abx gi f/u cbc bmp am Subjective Constitutional: Reports: weakness Allergies: Coded Allergies: No Known Allergies (Unverified , 06/17/16) All Systems: reviewed and negative except above Subjective trach vent sl hiccup Objective Last 24 Hour Vital Signs Date Time Temp Pulse Resp B/P (MAP) Pulse Ox O2 Delivery O2 Flow Rate FiO2 05/05/18 13:16 77 22 30 05/05/18 12:00 Mechanical Ventilator 05/05/18 12:00 30 05/05/18 12:00 73 122/75 05/05/18 12:00 97.9 82 16 114/81 (92) 100 05/05/18 12:00 79 05/05/18 11:12 73 20 30 05/05/18 09:26 98.0 05/05/18 08:57 94 20 30 05/05/18 08:00 Mechanical Ventilator 05/05/18 08:00 98.2 79 16 122/75 (91) 98 05/05/18 08:00 30 05/05/18 08:00 72 05/05/18 07:42 30 05/05/18 07:42 73 20 100 Mechanical Ventilator 30 05/05/18 07:42 73 20 Mechanical Ventilator 15.0 30 05/05/18 07:34 94 23 30 05/05/18 05:43 69 18 100 Mechanical Ventilator 30 05/05/18 05:32 59 18 100 Mechanical Ventilator 30 05/05/18 05:32 30 05/05/18 05:27 58 18 30 05/05/18 05:14 61 130/79 05/05/18 04:45 69 05/05/18 04:00 98.0 80 16 130/79 (96) 99 05/05/18 04:00 30 05/05/18 04:00 Mechanical Ventilator 05/05/18 03:34 69 18 30 05/05/18 01:02 54 20 30 05/05/18 00:00 97.9 62 18 115/82 (93) 100 05/05/18 00:00 Mechanical Ventilator 05/04/18 23:47 62 115/82 05/04/18 23:26 61 18 30 05/04/18 23:24 66 05/04/18 20:55 82 23 30 05/04/18 20:00 Mechanical Ventilator 05/04/18 20:00 98.2 96 18 144/98 (113) 99 05/04/18 20:00 30 05/04/18 19:37 71 21 100 Mechanical Ventilator 30 05/04/18 19:34 30 05/04/18 19:33 61 21 99 Mechanical Ventilator 30 05/04/18 19:32 69 05/04/18 19:20 88 22 30 05/04/18 18:05 62 131/86 05/04/18 16:30 95 18 30 05/04/18 16:00 Mechanical Ventilator 05/04/18 16:00 30 05/04/18 16:00 82 05/04/18 16:00 97.9 77 20 106/78 (87) 99 Intake and Output 05/04/18 05/05/18 19:00 07:00 Intake Total 769.767 ml 192.50 ml Output Total 500 ml 350 ml Balance 269.767 ml -157.50 ml Intake Oral 480 ml IV Total 289.767 ml 192.50 ml Output Urine Total 500 ml 350 ml Laboratory Tests 05/05/18 05:30: White Blood Count 12.7H, Red Blood Count 3.73L, Hemoglobin 10.9L, Hematocrit 32.2L, Mean Corpuscular Volume 86, Mean Corpuscular Hemoglobin 29.1, Mean Corpuscular Hemoglobin Concent 33.7, Red Cell Distribution Width 11.9, Platelet Count 345, Mean Platelet Volume 6.8, Neutrophils (%) (Auto) 77.3H, Lymphocytes ( %) (Auto) 11.1L, Monocytes (%) (Auto) 10.4H, Eosinophils (%) (Auto) 0.0, Basophils (%) (Auto) 1.1, Sodium Level 143, Potassium Level 4.0, Chloride Level 105, Carbon Dioxide Level 30, Anion Gap 8, Blood Urea Nitrogen 23H, Creatinine 1.0, Estimat Glomerular Filtration Rate > 60, Glucose Level 120H, Calcium Level 9.1, Phosphorus Level 3.3, Magnesium Level 2.6H, Total Bilirubin 0.4, Aspartate Amino Transf (AST/SGOT) 12L, Alanine Aminotransferase (ALT/SGPT) 16, Alkaline Phosphatase 113, Total Protein 7.6, Albumin 2.4L, Globulin 5.2, Albumin/ Globulin Ratio 0.5L Height (Feet): 6 Height (Inches): 5.00 Weight (Pounds): 168 General Appearance: lethargic EENT: normal ENT inspection Neck: normal alignment Cardiovascular: normal peripheral pulses, normal rate, regular rhythm Respiratory/Chest: chest wall non-tender, lungs clear, normal breath sounds Abdomen: normal bowel sounds, non tender, soft Extremities: normal inspection Edema: no edema noted Arm (L), no edema noted Arm (R), no edema noted Leg (L), no edema noted Leg (R), no edema noted Pedal (L), no edema noted Pedal (R), no edema noted Generalized Neurologic: motor weakness Skin: normal pigmentation, warm/dry Elan Petersen DO May 05, 2018 14:50
[2018-05-05] MEDS ORDERED: NS 275ml ONE (15:16)
[2018-05-05] MEDS: chlorproMAZINE 25mg tab ORAL PRN ×2 (15:21→20:23)
--- NOTE | 2018-05-05 15:47 | Infectious Diseases Prog Note ---
Assessment/Plan Assessment/Plan ASSESSMENT: The patient is a 67-year-old male with, Fever, Sp Leukocytosis, improving probable UIT : UCx: P mirabilis Probable HAPn (despite of negative chestx-ray) Scx: PSA and ( sterp GrpG and diphtheroids: colonizer ) Probable sepsis hx of Pneumonia MDR Pseudomonas/MRSA History of coag-negative staph and Acinetobacter bacteremia (December 2017) History of diabetes. Hypertension. Asthma History of colon cancer, status post hemicolectomy Right lower extremity DVT Pulmonary nodules PLAN: -continue the patient on Zoysn d# 4/10 05/02 Sp vancomycin and meropenem day #4 -Monitor CBC -Monitor BMP -Monitor cultures (blood) -Monitor chest x-ray -Continue respiratory support Subjective Allergies: Coded Allergies: No Known Allergies (Unverified , 06/17/16) Subjective no new complain afebrile Objective Vital Signs Last 24 Hour Vital Signs Date Time Temp Pulse Resp B/P (MAP) Pulse Ox O2 Delivery O2 Flow Rate FiO2 05/05/18 15:12 97.9 05/05/18 14:43 75 18 100 Mechanical Ventilator 30 05/05/18 14:43 75 16 100 Mechanical Ventilator 30 05/05/18 14:43 30 05/05/18 14:33 30 05/05/18 14:33 81 16 100 Mechanical Ventilator 30 05/05/18 14:30 75 18 30 05/05/18 13:16 77 22 30 05/05/18 12:00 Mechanical Ventilator 05/05/18 12:00 30 05/05/18 12:00 73 122/75 05/05/18 12:00 97.9 82 16 114/81 (92) 100 05/05/18 12:00 79 05/05/18 11:12 73 20 30 05/05/18 08:57 94 20 30 05/05/18 08:00 Mechanical Ventilator 05/05/18 08:00 98.2 79 16 122/75 (91) 98 05/05/18 08:00 30 05/05/18 08:00 72 05/05/18 07:42 30 05/05/18 07:42 73 20 100 Mechanical Ventilator 30 05/05/18 07:42 73 20 Mechanical Ventilator 15.0 30 05/05/18 07:34 94 23 30 05/05/18 05:43 69 18 100 Mechanical Ventilator 30 05/05/18 05:32 59 18 100 Mechanical Ventilator 30 05/05/18 05:32 30 05/05/18 05:27 58 18 30 05/05/18 05:14 61 130/79 05/05/18 04:45 69 05/05/18 04:00 98.0 80 16 130/79 (96) 99 05/05/18 04:00 30 05/05/18 04:00 Mechanical Ventilator 05/05/18 03:34 69 18 30 05/05/18 01:02 54 20 30 05/05/18 00:00 97.9 62 18 115/82 (93) 100 05/05/18 00:00 Mechanical Ventilator 05/04/18 23:47 62 115/82 05/04/18 23:26 61 18 30 05/04/18 23:24 66 05/04/18 20:55 82 23 30 05/04/18 20:00 Mechanical Ventilator 05/04/18 20:00 98.2 96 18 144/98 (113) 99 05/04/18 20:00 30 05/04/18 19:37 71 21 100 Mechanical Ventilator 30 05/04/18 19:34 30 05/04/18 19:33 61 21 99 Mechanical Ventilator 30 05/04/18 19:32 69 05/04/18 19:20 88 22 30 05/04/18 18:05 62 131/86 05/04/18 16:30 95 18 30 05/04/18 16:00 Mechanical Ventilator 05/04/18 16:00 30 05/04/18 16:00 82 05/04/18 16:00 97.9 77 20 106/78 (87) 99 Height (Feet): 6 Height (Inches): 5.00 Weight (Pounds): 168 HEENT: anicteric Respiratory/Chest: no respiratory distress Cardiovascular: regular rhythm Abdomen: no organomegaly Microbiology Date/Time Source Procedure Growth Status 05/04/18 15:30 Sputum Gram Stain - Final Resulted 05/04/18 15:30 Sputum Sputum Culture - Preliminary Resulted Laboratory Tests Test 05/05/18 05:30 White Blood Count 12.7 K/UL (4.8-10.8) H Red Blood Count 3.73 M/UL (4.70-6.10) L Hemoglobin 10.9 G/DL (14.2-18.0) L Hematocrit 32.2 % (42.0-52.0) L Mean Corpuscular Volume 86 FL (80-99) Mean Corpuscular Hemoglobin 29.1 PG (27.0-31.0) Mean Corpuscular Hemoglobin Concent 33.7 G/DL (32.0-36.0) Red Cell Distribution Width 11.9 % (11.6-14.8) Platelet Count 345 K/UL (150-450) Mean Platelet Volume 6.8 FL (6.5-10.1) Neutrophils (%) (Auto) 77.3 % (45.0-75.0) H Lymphocytes (%) (Auto) 11.1 % (20.0-45.0) L Monocytes (%) (Auto) 10.4 % (1.0-10.0) H Eosinophils (%) (Auto) 0.0 % (0.0-3.0) Basophils (%) (Auto) 1.1 % (0.0-2.0) Sodium Level 143 MMOL/L (136-145) Potassium Level 4.0 MMOL/L (3.5-5.1) Chloride Level 105 MMOL/L (98-107) Carbon Dioxide Level 30 MMOL/L (21-32) Anion Gap 8 mmol/L (5-15) Blood Urea Nitrogen 23 mg/dL (7-18) H Creatinine 1.0 MG/DL (0.55-1.30) Estimat Glomerular Filtration Rate > 60 mL/min (>60) Glucose Level 120 MG/DL (74-106) H Calcium Level 9.1 MG/DL (8.5-10.1) Phosphorus Level 3.3 MG/DL (2.5-4.9) Magnesium Level 2.6 MG/DL (1.8-2.4) H Total Bilirubin 0.4 MG/DL (0.2-1.0) Aspartate Amino Transf (AST/SGOT) 12 U/L (15-37) L Alanine Aminotransferase (ALT/SGPT) 16 U/L (12-78) Alkaline Phosphatase 113 U/L (46-116) Total Protein 7.6 G/DL (6.4-8.2) Albumin 2.4 G/DL (3.4-5.0) L Globulin 5.2 g/dL Albumin/Globulin Ratio 0.5 (1.0-2.7) L Current Medications Medications (Trade) Dose Ordered Sig/Shraddha Route PRN Reason Start Time Stop Time Status Last Admin Dose Admin Acetaminophen (Tylenol) 650 mg Q4H PRN ORAL FEVER 04/29/18 17:09 05/29/18 17:08 Albuterol/ Ipratropium (Albuterol/ Ipratropium) 3 ml Q4H PRN HHN Shortness of Breath 05/02/18 13:15 05/07/18 13:14 05/05/18 14:52 Chlorpromazine (Thorazine) 25 mg Q6H PRN ORAL HICCUPS 05/05/18 14:45 06/04/18 14:44 05/05/18 15:21 Dextrose (Dextrose 50%) 25 ml Q30M PRN IV Hypoglycemia 04/29/18 17:15 05/29/18 17:12 Dextrose (Dextrose 50%) 50 ml Q30M PRN IV hypoglycemia 04/29/18 17:15 05/29/18 17:14 Diltiazem HCl (Cardizem) 30 mg EVERY 6 HOURS ORAL 04/30/18 00:00 05/30/18 00:00 05/05/18 12:00 Heparin Sodium (Porcine) (Heparin 5000 units/ml) 5,000 units EVERY 12 HOURS SUBQ 04/29/18 21:00 05/29/18 20:59 05/05/18 08:58 Lidocaine (Xylocaine 1% MPF 5ml) 10 ml Q4H PRN HHN persistent cough 04/30/18 10:15 05/30/18 10:14 05/05/18 14:41 Lorazepam (Ativan 2mg/ml 1ml) 2 mg Q2H PRN IV For Anxiety 04/29/18 17:15 05/06/18 17:14 04/30/18 23:25 Methadone HCl (Methadone HCl) 5 mg EVERY 12 HOURS ORAL 04/30/18 10:15 05/07/18 10:14 05/05/18 08:56 Morphine Sulfate (Morphine Sulfate) 4 mg Q4H PRN IVP Severe Pain (Pain Scale 7-10) 04/29/18 17:15 05/06/18 17:14 05/05/18 14:42 Ondansetron HCl (Zofran) 4 mg Q6H PRN IVP Nausea & Vomiting 04/29/18 17:15 05/29/18 17:14 Piperacillin Sod/ Tazobactam Sod 3.375 gm/Dextrose 110 ml @ 27.5 mls/hr Q8H IVPB 05/02/18 12:00 05/09/18 11:59 05/05/18 12:00 Polyethylene Glycol (Miralax) 17 gm DAILYPRN PRN ORAL Constipation 04/29/18 17:15 05/29/18 17:14 Anibal Trujillo MD May 05, 2018 15:47
[2018-05-05 16:00] VITALS: BP 120/77
[2018-05-05 20:00] VITALS: BP 125/78
--- NOTE | 2018-05-05 23:26 | Cardiology Progress Note ---
Assessment/Plan Assessment/Plan 1. Dyspnea likely pulmonary in origin, due to acute exacerbation of COPD. 2D echocardiography shows normal LVEF. 2. Sinus tachycardia, resolved, adjust dose of calcium-channel marguerite. 3. History of diabetes mellitus, will consider aspirin and statin. 4. Ventilatory-drive respiratory failure, status post tracheostomy tube placement. 5. History of DVT. 6. History of colon cancer. 7. History of GERD. 8. History of metabolic encephalopathy. Subjective Subjective Sinus rhythm at rate of 85. Objective Last 24 Hour Vital Signs Date Time Temp Pulse Resp B/P (MAP) Pulse Ox O2 Delivery O2 Flow Rate FiO2 05/05/18 22:40 89 18 30 05/05/18 21:13 107 18 30 05/05/18 20:00 Mechanical Ventilator 05/05/18 20:00 97.5 85 19 125/78 (94) 99 05/05/18 20:00 30 05/05/18 20:00 96 05/05/18 19:49 98.0 05/05/18 19:29 100 20 100 Mechanical Ventilator 30 05/05/18 19:29 30 05/05/18 19:28 100 20 30 05/05/18 18:18 79 122/75 05/05/18 17:40 79 18 30 05/05/18 16:00 30 05/05/18 16:00 98.0 85 16 120/77 (91) 100 05/05/18 16:00 Mechanical Ventilator 05/05/18 16:00 95 05/05/18 14:43 75 18 100 Mechanical Ventilator 30 05/05/18 14:43 75 16 100 Mechanical Ventilator 30 05/05/18 14:43 30 05/05/18 14:33 30 05/05/18 14:33 81 16 100 Mechanical Ventilator 30 05/05/18 14:30 75 18 30 05/05/18 13:16 77 22 30 05/05/18 12:00 Mechanical Ventilator 05/05/18 12:00 30 05/05/18 12:00 73 122/75 05/05/18 12:00 97.9 82 16 114/81 (92) 100 05/05/18 12:00 79 05/05/18 11:12 73 20 30 05/05/18 08:57 94 20 30 05/05/18 08:00 Mechanical Ventilator 05/05/18 08:00 98.2 79 16 122/75 (91) 98 05/05/18 08:00 30 05/05/18 08:00 72 05/05/18 07:42 30 05/05/18 07:42 73 20 100 Mechanical Ventilator 30 05/05/18 07:42 73 20 Mechanical Ventilator 15.0 30 05/05/18 07:34 94 23 30 05/05/18 05:43 69 18 100 Mechanical Ventilator 30 05/05/18 05:32 59 18 100 Mechanical Ventilator 30 05/05/18 05:32 30 05/05/18 05:27 58 18 30 05/05/18 05:14 61 130/79 05/05/18 04:45 69 05/05/18 04:00 98.0 80 16 130/79 (96) 99 05/05/18 04:00 30 05/05/18 04:00 Mechanical Ventilator 05/05/18 03:34 69 18 30 05/05/18 01:02 54 20 30 05/05/18 00:00 97.9 62 18 115/82 (93) 100 05/05/18 00:00 Mechanical Ventilator 05/04/18 23:47 62 115/82 05/04/18 23:26 61 18 30 Intake and Output 05/04/18 05/05/18 18:59 06:59 Intake Total 847.267 ml 165.00 ml Output Total 500 ml 350 ml Balance 347.267 ml -185.00 ml Intake Oral 480 ml IV Total 367.267 ml 165.00 ml Output Urine Total 500 ml 350 ml Laboratory Tests Test 05/05/18 05:30 White Blood Count 12.7 K/UL (4.8-10.8) H Red Blood Count 3.73 M/UL (4.70-6.10) L Hemoglobin 10.9 G/DL (14.2-18.0) L Hematocrit 32.2 % (42.0-52.0) L Mean Corpuscular Volume 86 FL (80-99) Mean Corpuscular Hemoglobin 29.1 PG (27.0-31.0) Mean Corpuscular Hemoglobin Concent 33.7 G/DL (32.0-36.0) Red Cell Distribution Width 11.9 % (11.6-14.8) Platelet Count 345 K/UL (150-450) Mean Platelet Volume 6.8 FL (6.5-10.1) Neutrophils (%) (Auto) 77.3 % (45.0-75.0) H Lymphocytes (%) (Auto) 11.1 % (20.0-45.0) L Monocytes (%) (Auto) 10.4 % (1.0-10.0) H Eosinophils (%) (Auto) 0.0 % (0.0-3.0) Basophils (%) (Auto) 1.1 % (0.0-2.0) Sodium Level 143 MMOL/L (136-145) Potassium Level 4.0 MMOL/L (3.5-5.1) Chloride Level 105 MMOL/L (98-107) Carbon Dioxide Level 30 MMOL/L (21-32) Anion Gap 8 mmol/L (5-15) Blood Urea Nitrogen 23 mg/dL (7-18) H Creatinine 1.0 MG/DL (0.55-1.30) Estimat Glomerular Filtration Rate > 60 mL/min (>60) Glucose Level 120 MG/DL (74-106) H Calcium Level 9.1 MG/DL (8.5-10.1) Phosphorus Level 3.3 MG/DL (2.5-4.9) Magnesium Level 2.6 MG/DL (1.8-2.4) H Total Bilirubin 0.4 MG/DL (0.2-1.0) Aspartate Amino Transf (AST/SGOT) 12 U/L (15-37) L Alanine Aminotransferase (ALT/SGPT) 16 U/L (12-78) Alkaline Phosphatase 113 U/L (46-116) Total Protein 7.6 G/DL (6.4-8.2) Albumin 2.4 G/DL (3.4-5.0) L Globulin 5.2 g/dL Albumin/Globulin Ratio 0.5 (1.0-2.7) L Microbiology Date/Time Source Procedure Growth Status 05/04/18 15:30 Sputum Gram Stain - Final Resulted 05/04/18 15:30 Sputum Sputum Culture - Preliminary Resulted Objective HEENT: Atraumatic and normocephalic. Anicteric. Pupils are equal, round, and reactive to light and accommodation. Conjunctival pallor. NECK: Presence of a tracheostomy tube. No carotid bruit. Carotid upstrokes 2+ bilaterally. CVS: Normal S1, S2. Regular. Tachycardic. No murmurs, gallops, or rubs. LUNGS: Expiratory wheezing throughout both lungs. Diminished breath sounds throughout. ABDOMEN: Soft, nontender, and nondistended. No hepatosplenomegaly. Positive bowel sounds. EXTREMITIES: No evidence of edema, clubbing, or cyanosis. Jose Pandya MD May 05, 2018 23:26
[2018-05-06] VITALS: BP 126/80
[2018-05-06] MEDS: dilTIAZem HCl 30mg tab ORAL SCH ×5 (00:54→23:25)
[2018-05-06] MEDS: Albuterol/Ipratropium 3ml neb HHN PRN ×2 (01:31→19:09)
[2018-05-06] MEDS: LORazepam Inj 2mg/ml 1ml IV PRN (01:38)
[2018-05-06] MEDS: Piperacillin/Tazobactam 3.375 GM in D5W 110 ML IVPB SCH ×3 (03:56→20:38)
[2018-05-06 04:00] VITALS: BP 135/74
[2018-05-06 05:43] LABS: BASOPHILS % (AUTO) 1.2 % (0.0-2.0); EOSINOPHILS % (AUTO) 0.8 % (0.0-3.0); HEMATOCRIT 32.8 % (42.0-52.0); HEMOGLOBIN 10.8 G/DL (14.2-18.0); LYMPHOCYTES % (AUTO) 17.2 % (20.0-45.0); MEAN CORPUSCULAR VOLUME 86 FL (80-99); MONOCYTES % (AUTO) 11.7 % (1.0-10.0); NEUTROPHILS % (AUTO) 69.2 % (45.0-75.0); PLATELET COUNT 349 K/UL (150-450); RED CELL DISTRIBUTION WIDTH 11.9 % (11.6-14.8); WHITE BLOOD COUNT 10.3 K/UL (4.8-10.8)
[2018-05-06 05:53] LABS: ANION GAP 7 mmol/L (5-15); BLOOD UREA NITROGEN 17 mg/dL (7-18); CALCIUM 8.6 MG/DL (8.5-10.1); CARBON DIOXIDE 30 MMOL/L (21-32); CHLORIDE 103 MMOL/L (98-107); SODIUM 140 MMOL/L (136-145)
[2018-05-06 08:00] VITALS: BP 128/89
[2018-05-06] MEDS: Heparin 5000 units/ml inj SUBQ SCH ×2 (09:25→20:38)
--- NOTE | 2018-05-06 09:39 | Pulmonology Progress Note ---
Assessment/Plan Problems: (1) Acute and chronic respiratory failure (2) Severe sepsis (3) COPD exacerbation (4) Hypertension Assessment/Plan improving K supplement respiratory treatment myers cultures, sputum has GNB iv abx, on zosyn trial of Licocain has been helpful low dose Methadone seems to help titrate vent setting f/u pulse oximeter dvt prophylaxis. wbc is lower today Subjective ROS Limited/Unobtainable: No Interval Events: feels better Allergies: Coded Allergies: No Known Allergies (Unverified , 06/17/16) Objective Last 24 Hour Vital Signs Date Time Temp Pulse Resp B/P (MAP) Pulse Ox O2 Delivery O2 Flow Rate FiO2 05/06/18 09:22 113 20 30 05/06/18 09:03 95 05/06/18 08:00 30 05/06/18 08:00 Mechanical Ventilator 05/06/18 08:00 97.7 105 20 128/89 (102) 99 05/06/18 06:45 97 20 30 05/06/18 05:39 103 133/75 05/06/18 05:19 89 32 30 05/06/18 04:00 30 05/06/18 04:00 98.0 103 22 135/74 (94) 99 05/06/18 04:00 Mechanical Ventilator 05/06/18 04:00 92 05/06/18 03:06 87 20 30 05/06/18 01:39 88 18 100 Mechanical Ventilator 30 05/06/18 01:30 96 20 100 Mechanical Ventilator 30 05/06/18 01:30 30 05/06/18 01:25 96 20 30 05/06/18 00:54 107 136/80 05/06/18 00:00 Mechanical Ventilator 05/06/18 00:00 97.8 107 22 126/80 (95) 98 05/05/18 23:27 112 05/05/18 22:40 89 18 30 05/05/18 21:13 107 18 30 05/05/18 20:00 Mechanical Ventilator 05/05/18 20:00 97.5 85 19 125/78 (94) 99 05/05/18 20:00 30 05/05/18 20:00 96 05/05/18 19:49 98.0 05/05/18 19:45 102 18 100 Mechanical Ventilator 30 05/05/18 19:29 100 20 100 Mechanical Ventilator 30 05/05/18 19:29 30 05/05/18 19:28 100 20 30 05/05/18 18:18 79 122/75 05/05/18 17:40 79 18 30 05/05/18 16:00 30 05/05/18 16:00 98.0 85 16 120/77 (91) 100 05/05/18 16:00 Mechanical Ventilator 05/05/18 16:00 95 05/05/18 14:43 75 18 100 Mechanical Ventilator 30 05/05/18 14:43 75 16 100 Mechanical Ventilator 30 05/05/18 14:43 30 05/05/18 14:33 30 05/05/18 14:33 81 16 100 Mechanical Ventilator 30 05/05/18 14:30 75 18 30 05/05/18 13:16 77 22 30 05/05/18 12:00 Mechanical Ventilator 05/05/18 12:00 30 05/05/18 12:00 73 122/75 05/05/18 12:00 97.9 82 16 114/81 (92) 100 05/05/18 12:00 79 05/05/18 11:12 73 20 30 Intake and Output 05/05/18 05/06/18 19:00 07:00 Intake Total 110.0 ml 610.0 ml Output Total 500 ml 550 ml Balance -390.0 ml 60.0 ml Intake Oral 500 ml IV Total 110.0 ml 110.0 ml Output Urine Total 500 ml 550 ml General Appearance: WD/WN HEENT: status post trach Respiratory/Chest: chest wall non-tender, lungs clear Cardiovascular: normal peripheral pulses, normal rate Abdomen: normal bowel sounds, no organomegaly, no mass Extremities: no cyanosis, no clubbing Skin: no lesions Microbiology Date/Time Source Procedure Growth Status 05/04/18 11:35 Blood Blood Culture - Preliminary NO GROWTH AFTER 24 HOURS Resulted 05/04/18 11:20 Blood Blood Culture - Preliminary NO GROWTH AFTER 24 HOURS Resulted 05/04/18 15:30 Sputum Gram Stain - Final Resulted 05/04/18 15:30 Sputum Culture - Preliminary Gram Negative Bacillus 1 Usual Respiratory Arlen Resulted Laboratory Tests 05/06/18 04:54: White Blood Count 10.3, Red Blood Count 3.80L, Hemoglobin 10.8L, Hematocrit 32.8L, Mean Corpuscular Volume 86, Mean Corpuscular Hemoglobin 28.5, Mean Corpuscular Hemoglobin Concent 33.0, Red Cell Distribution Width 11.9, Platelet Count 349, Mean Platelet Volume 7.2, Neutrophils (%) (Auto) 69.2, Lymphocytes (% ) (Auto) 17.2L, Monocytes (%) (Auto) 11.7H, Eosinophils (%) (Auto) 0.8, Basophils (%) (Auto) 1.2, Sodium Level 140, Potassium Level 3.0L, Chloride Level 103, Carbon Dioxide Level 30, Anion Gap 7, Blood Urea Nitrogen 17, Creatinine 1.0, Estimat Glomerular Filtration Rate > 60, Glucose Level 100, Calcium Level 8.6 Current Medications Medications (Trade) Dose Ordered Sig/Shraddha Route PRN Reason Start Time Stop Time Status Last Admin Dose Admin Acetaminophen (Tylenol) 650 mg Q4H PRN ORAL FEVER 04/29/18 17:09 05/29/18 17:08 Albuterol/ Ipratropium (Albuterol/ Ipratropium) 3 ml Q4H PRN HHN Shortness of Breath 05/02/18 13:15 05/07/18 13:14 05/06/18 01:31 Chlorpromazine (Thorazine) 25 mg Q6H PRN ORAL HICCUPS 05/05/18 14:45 06/04/18 14:44 05/05/18 20:23 Dextrose (Dextrose 50%) 25 ml Q30M PRN IV Hypoglycemia 04/29/18 17:15 05/29/18 17:12 Dextrose (Dextrose 50%) 50 ml Q30M PRN IV hypoglycemia 04/29/18 17:15 05/29/18 17:14 Diltiazem HCl (Cardizem) 30 mg EVERY 6 HOURS ORAL 04/30/18 00:00 05/30/18 00:00 05/06/18 05:39 Heparin Sodium (Porcine) (Heparin 5000 units/ml) 5,000 units EVERY 12 HOURS SUBQ 04/29/18 21:00 05/29/18 20:59 05/06/18 09:25 Lidocaine (Xylocaine 1% MPF 5ml) 10 ml Q4H PRN HHN persistent cough 04/30/18 10:15 05/30/18 10:14 05/05/18 14:41 Lorazepam (Ativan 2mg/ml 1ml) 2 mg Q2H PRN IV For Anxiety 04/29/18 17:15 05/06/18 17:14 05/06/18 01:38 Methadone HCl (Methadone HCl) 5 mg EVERY 12 HOURS ORAL 04/30/18 10:15 05/07/18 10:14 05/06/18 09:23 Morphine Sulfate (Morphine Sulfate) 4 mg Q4H PRN IVP Severe Pain (Pain Scale 7-10) 04/29/18 17:15 05/06/18 17:14 05/05/18 19:19 Ondansetron HCl (Zofran) 4 mg Q6H PRN IVP Nausea & Vomiting 04/29/18 17:15 05/29/18 17:14 Piperacillin Sod/ Tazobactam Sod 3.375 gm/Dextrose 110 ml @ 27.5 mls/hr Q8H IVPB 05/02/18 12:00 05/09/18 11:59 05/06/18 03:56 Polyethylene Glycol (Miralax) 17 gm DAILYPRN PRN ORAL Constipation 04/29/18 17:15 05/29/18 17:14 Potassium Chloride 100 ml @ 100 mls/hr Q1H IVPB 05/06/18 08:00 05/06/18 11:59 05/06/18 08:44 Demetrius Andrade MD May 06, 2018 09:39
[2018-05-06] MEDS: Morphine Sulfate 4mg/ml Inj (IV/IM USE ONLY) IVP PRN ×2 (10:51→16:08)
[2018-05-06 12:00] VITALS: BP 132/75
--- NOTE | 2018-05-06 12:37 | Infectious Diseases Prog Note ---
Assessment/Plan Assessment/Plan ASSESSMENT: The patient is a 67-year-old male with, Fever, Sp Leukocytosis, Sp probable UIT : UCx: P mirabilis Probable HAPn (despite of negative chestx-ray) Scx: PSA and ( sterp GrpG and diphtheroids: colonizer ) Probable sepsis hx of Pneumonia MDR Pseudomonas/MRSA History of coag-negative staph and Acinetobacter bacteremia (December 2017) History of diabetes. Hypertension. Asthma History of colon cancer, status post hemicolectomy Right lower extremity DVT Pulmonary nodules PLAN: -continue the patient on Zoysn d# 5 /05/02 Sp vancomycin and meropenem day #4 -Monitor CBC -Monitor BMP -Monitor cultures (blood) -Monitor chest x-ray -Continue respiratory support Subjective Allergies: Coded Allergies: No Known Allergies (Unverified , 06/17/16) Subjective no new complain afebrile Objective Vital Signs Last 24 Hour Vital Signs Date Time Temp Pulse Resp B/P (MAP) Pulse Ox O2 Delivery O2 Flow Rate FiO2 05/06/18 12:23 108 132/75 05/06/18 12:00 30 05/06/18 12:00 Mechanical Ventilator 05/06/18 12:00 97.5 108 21 132/75 (94) 98 05/06/18 11:10 118 22 30 05/06/18 09:22 113 20 30 05/06/18 09:03 95 05/06/18 08:00 30 05/06/18 08:00 Mechanical Ventilator 05/06/18 08:00 97.7 105 20 128/89 (102) 99 05/06/18 06:45 97 20 30 05/06/18 05:39 103 133/75 05/06/18 05:19 89 32 30 05/06/18 04:00 30 05/06/18 04:00 98.0 103 22 135/74 (94) 99 05/06/18 04:00 Mechanical Ventilator 05/06/18 04:00 92 05/06/18 03:06 87 20 30 05/06/18 01:39 88 18 100 Mechanical Ventilator 30 05/06/18 01:30 96 20 100 Mechanical Ventilator 30 05/06/18 01:30 30 05/06/18 01:25 96 20 30 05/06/18 00:54 107 136/80 05/06/18 00:00 Mechanical Ventilator 05/06/18 00:00 97.8 107 22 126/80 (95) 98 05/05/18 23:27 112 05/05/18 22:40 89 18 30 05/05/18 21:13 107 18 30 05/05/18 20:00 Mechanical Ventilator 05/05/18 20:00 97.5 85 19 125/78 (94) 99 05/05/18 20:00 30 05/05/18 20:00 96 05/05/18 19:49 98.0 05/05/18 19:45 102 18 100 Mechanical Ventilator 30 05/05/18 19:29 100 20 100 Mechanical Ventilator 30 05/05/18 19:29 30 05/05/18 19:28 100 20 30 05/05/18 18:18 79 122/75 05/05/18 17:40 79 18 30 05/05/18 16:00 30 05/05/18 16:00 98.0 85 16 120/77 (91) 100 05/05/18 16:00 Mechanical Ventilator 05/05/18 16:00 95 05/05/18 14:43 75 18 100 Mechanical Ventilator 30 05/05/18 14:43 75 16 100 Mechanical Ventilator 30 05/05/18 14:43 30 05/05/18 14:33 30 05/05/18 14:33 81 16 100 Mechanical Ventilator 30 05/05/18 14:30 75 18 30 05/05/18 13:16 77 22 30 Height (Feet): 6 Height (Inches): 5.00 Weight (Pounds): 169 HEENT: atraumatic Respiratory/Chest: no respiratory distress Cardiovascular: regular rhythm Abdomen: no organomegaly Microbiology Date/Time Source Procedure Growth Status 05/04/18 11:35 Blood Blood Culture - Preliminary NO GROWTH AFTER 24 HOURS Resulted 05/04/18 11:20 Blood Blood Culture - Preliminary NO GROWTH AFTER 24 HOURS Resulted 05/04/18 15:30 Sputum Gram Stain - Final Resulted 05/04/18 15:30 Sputum Culture - Preliminary Gram Negative Bacillus 1 Usual Respiratory Arlen Resulted Laboratory Tests Test 05/06/18 04:54 White Blood Count 10.3 K/UL (4.8-10.8) Red Blood Count 3.80 M/UL (4.70-6.10) L Hemoglobin 10.8 G/DL (14.2-18.0) L Hematocrit 32.8 % (42.0-52.0) L Mean Corpuscular Volume 86 FL (80-99) Mean Corpuscular Hemoglobin 28.5 PG (27.0-31.0) Mean Corpuscular Hemoglobin Concent 33.0 G/DL (32.0-36.0) Red Cell Distribution Width 11.9 % (11.6-14.8) Platelet Count 349 K/UL (150-450) Mean Platelet Volume 7.2 FL (6.5-10.1) Neutrophils (%) (Auto) 69.2 % (45.0-75.0) Lymphocytes (%) (Auto) 17.2 % (20.0-45.0) L Monocytes (%) (Auto) 11.7 % (1.0-10.0) H Eosinophils (%) (Auto) 0.8 % (0.0-3.0) Basophils (%) (Auto) 1.2 % (0.0-2.0) Sodium Level 140 MMOL/L (136-145) Potassium Level 3.0 MMOL/L (3.5-5.1) L Chloride Level 103 MMOL/L (98-107) Carbon Dioxide Level 30 MMOL/L (21-32) Anion Gap 7 mmol/L (5-15) Blood Urea Nitrogen 17 mg/dL (7-18) Creatinine 1.0 MG/DL (0.55-1.30) Estimat Glomerular Filtration Rate > 60 mL/min (>60) Glucose Level 100 MG/DL (74-106) Calcium Level 8.6 MG/DL (8.5-10.1) Current Medications Medications (Trade) Dose Ordered Sig/Shraddha Route PRN Reason Start Time Stop Time Status Last Admin Dose Admin Acetaminophen (Tylenol) 650 mg Q4H PRN ORAL FEVER 04/29/18 17:09 05/29/18 17:08 Albuterol/ Ipratropium (Albuterol/ Ipratropium) 3 ml Q4H PRN HHN Shortness of Breath 05/06/18 10:31 05/11/18 10:30 Chlorpromazine (Thorazine) 25 mg Q6H PRN ORAL HICCUPS 05/05/18 14:45 06/04/18 14:44 05/05/18 20:23 Dextrose (Dextrose 50%) 25 ml Q30M PRN IV Hypoglycemia 04/29/18 17:15 05/29/18 17:12 Dextrose (Dextrose 50%) 50 ml Q30M PRN IV hypoglycemia 04/29/18 17:15 05/29/18 17:14 Diltiazem HCl (Cardizem) 30 mg EVERY 6 HOURS ORAL 04/30/18 00:00 05/30/18 00:00 05/06/18 12:23 Heparin Sodium (Porcine) (Heparin 5000 units/ml) 5,000 units EVERY 12 HOURS SUBQ 04/29/18 21:00 05/29/18 20:59 05/06/18 09:25 Lidocaine (Xylocaine 1% MPF 5ml) 10 ml Q4H PRN HHN persistent cough 04/30/18 10:15 05/30/18 10:14 05/05/18 14:41 Lorazepam (Ativan 2mg/ml 1ml) 2 mg Q2H PRN IV For Anxiety 04/29/18 17:15 05/06/18 17:14 05/06/18 01:38 Methadone HCl (Methadone HCl) 5 mg EVERY 12 HOURS ORAL 05/06/18 21:00 05/13/18 20:59 Morphine Sulfate (Morphine Sulfate) 4 mg Q4H PRN IVP Severe Pain (Pain Scale 7-10) 04/29/18 17:15 05/06/18 17:14 05/06/18 10:51 Ondansetron HCl (Zofran) 4 mg Q6H PRN IVP Nausea & Vomiting 04/29/18 17:15 05/29/18 17:14 Piperacillin Sod/ Tazobactam Sod 3.375 gm/Dextrose 110 ml @ 27.5 mls/hr Q8H IVPB 05/02/18 12:00 05/09/18 11:59 05/06/18 03:56 Polyethylene Glycol (Miralax) 17 gm DAILYPRN PRN ORAL Constipation 04/29/18 17:15 05/29/18 17:14 Anibal Trujillo MD May 06, 2018 12:37
--- NOTE | 2018-05-06 13:39 | General Progress Note ---
Assessment/Plan Problem List: (1) Acute respiratory failure ICD Codes: J96.00 - Acute respiratory failure, unspecified whether with hypoxia or hypercapnia SNOMED: 21063639 (2) UTI (urinary tract infection) due to Enterococcus ICD Codes: N39.0 - Urinary tract infection, site not specified; B95.2 - Enterococcus as the cause of diseases classified elsewhere SNOMED: 199186911048660 (3) COPD exacerbation ICD Codes: J44.1 - Chronic obstructive pulmonary disease with (acute) exacerbation SNOMED: 835217088, 040630350 (4) Sepsis ICD Codes: A41.9 - Sepsis, unspecified organism SNOMED: 69863927 (5) Acute renal failure (ARF) ICD Codes: N17.9 - Acute kidney failure, unspecified SNOMED: 64550028 (6) Fever ICD Codes: R50.9 - Fever, unspecified SNOMED: 370997633 Status: stable, progressing Assessment/Plan vent abx gi f/u dc if clear Subjective Constitutional: Reports: weakness Allergies: Coded Allergies: No Known Allergies (Unverified , 06/17/16) All Systems: reviewed and negative except above Subjective trach vent sleepy Objective Last 24 Hour Vital Signs Date Time Temp Pulse Resp B/P (MAP) Pulse Ox O2 Delivery O2 Flow Rate FiO2 05/06/18 12:34 109 21 30 05/06/18 12:23 108 132/75 05/06/18 12:00 30 05/06/18 12:00 Mechanical Ventilator 05/06/18 12:00 97.5 108 21 132/75 (94) 98 05/06/18 11:10 118 22 30 05/06/18 09:22 113 20 30 05/06/18 09:03 95 05/06/18 08:00 30 05/06/18 08:00 Mechanical Ventilator 05/06/18 08:00 97.7 105 20 128/89 (102) 99 05/06/18 06:45 97 20 30 05/06/18 05:39 103 133/75 05/06/18 05:19 89 32 30 05/06/18 04:00 30 05/06/18 04:00 98.0 103 22 135/74 (94) 99 05/06/18 04:00 Mechanical Ventilator 05/06/18 04:00 92 05/06/18 03:06 87 20 30 05/06/18 01:39 88 18 100 Mechanical Ventilator 30 05/06/18 01:30 96 20 100 Mechanical Ventilator 30 05/06/18 01:30 30 05/06/18 01:25 96 20 30 05/06/18 00:54 107 136/80 05/06/18 00:00 Mechanical Ventilator 05/06/18 00:00 97.8 107 22 126/80 (95) 98 05/05/18 23:27 112 05/05/18 22:40 89 18 30 05/05/18 21:13 107 18 30 05/05/18 20:00 Mechanical Ventilator 05/05/18 20:00 97.5 85 19 125/78 (94) 99 05/05/18 20:00 30 05/05/18 20:00 96 05/05/18 19:49 98.0 05/05/18 19:45 102 18 100 Mechanical Ventilator 30 05/05/18 19:29 100 20 100 Mechanical Ventilator 30 05/05/18 19:29 30 05/05/18 19:28 100 20 30 05/05/18 18:18 79 122/75 05/05/18 17:40 79 18 30 05/05/18 16:00 30 05/05/18 16:00 98.0 85 16 120/77 (91) 100 05/05/18 16:00 Mechanical Ventilator 05/05/18 16:00 95 05/05/18 14:43 75 18 100 Mechanical Ventilator 30 05/05/18 14:43 75 16 100 Mechanical Ventilator 30 05/05/18 14:43 30 05/05/18 14:33 30 05/05/18 14:33 81 16 100 Mechanical Ventilator 30 05/05/18 14:30 75 18 30 Intake and Output 05/05/18 05/06/18 19:00 07:00 Intake Total 110.0 ml 610.0 ml Output Total 500 ml 550 ml Balance -390.0 ml 60.0 ml Intake Oral 500 ml IV Total 110.0 ml 110.0 ml Output Urine Total 500 ml 550 ml Laboratory Tests 05/06/18 04:54: White Blood Count 10.3, Red Blood Count 3.80L, Hemoglobin 10.8L, Hematocrit 32.8L, Mean Corpuscular Volume 86, Mean Corpuscular Hemoglobin 28.5, Mean Corpuscular Hemoglobin Concent 33.0, Red Cell Distribution Width 11.9, Platelet Count 349, Mean Platelet Volume 7.2, Neutrophils (%) (Auto) 69.2, Lymphocytes (% ) (Auto) 17.2L, Monocytes (%) (Auto) 11.7H, Eosinophils (%) (Auto) 0.8, Basophils (%) (Auto) 1.2, Sodium Level 140, Potassium Level 3.0L, Chloride Level 103, Carbon Dioxide Level 30, Anion Gap 7, Blood Urea Nitrogen 17, Creatinine 1.0, Estimat Glomerular Filtration Rate > 60, Glucose Level 100, Calcium Level 8.6 Height (Feet): 6 Height (Inches): 5.00 Weight (Pounds): 169 General Appearance: lethargic EENT: normal ENT inspection Neck: normal alignment Cardiovascular: normal peripheral pulses, normal rate, regular rhythm Respiratory/Chest: chest wall non-tender, lungs clear, normal breath sounds Abdomen: normal bowel sounds, non tender, soft Extremities: normal inspection Edema: no edema noted Arm (L), no edema noted Arm (R), no edema noted Leg (L), no edema noted Leg (R), no edema noted Pedal (L), no edema noted Pedal (R), no edema noted Generalized Neurologic: motor weakness Skin: normal pigmentation, warm/dry Elan Petersen DO May 06, 2018 13:39
[2018-05-06 16:00] VITALS: BP 113/69
[2018-05-06 20:00] VITALS: BP 135/75
[2018-05-06] MEDS: chlorproMAZINE 25mg tab ORAL PRN (21:01)
[2018-05-07] VITALS: BP 130/77
[2018-05-07] MEDS: Albuterol/Ipratropium 3ml neb HHN PRN ×4 (01:06→21:18)
[2018-05-07 04:00] VITALS: BP 128/83
[2018-05-07] MEDS: Piperacillin/Tazobactam 3.375 GM in D5W 110 ML IVPB SCH ×3 (04:36→19:56)
[2018-05-07 05:47] LABS: BASOPHILS % (AUTO) 1.6 % (0.0-2.0); EOSINOPHILS % (AUTO) 3.4 % (0.0-3.0); HEMATOCRIT 34.7 % (42.0-52.0); HEMOGLOBIN 11.6 G/DL (14.2-18.0); LYMPHOCYTES % (AUTO) 18.7 % (20.0-45.0); MEAN CORPUSCULAR VOLUME 86 FL (80-99); MONOCYTES % (AUTO) 9.2 % (1.0-10.0); NEUTROPHILS % (AUTO) 67.1 % (45.0-75.0); PLATELET COUNT 379 K/UL (150-450); RED BLOOD COUNT 4.05 M/UL (4.70-6.10); RED CELL DISTRIBUTION WIDTH 11.6 % (11.6-14.8); WHITE BLOOD COUNT 10.5 K/UL (4.8-10.8)
[2018-05-07] MEDS: dilTIAZem HCl 30mg tab ORAL SCH ×4 (06:01→23:18)
[2018-05-07 06:22] LABS: ALANINE AMINOTRANSFERASE 21 U/L (12-78); ALBUMIN 2.2 G/DL (3.4-5.0); ALBUMIN/GLOBULIN RATIO 0.4 (1.0-2.7); ALKALINE PHOSPHATASE 106 U/L (46-116); ANION GAP 8 mmol/L (5-15); ASPARTATE AMINO TRANSFERASE 14 U/L (15-37); BILIRUBIN,TOTAL 0.6 MG/DL (0.2-1.0); BLOOD UREA NITROGEN 14 mg/dL (7-18); CALCIUM 8.8 MG/DL (8.5-10.1); CARBON DIOXIDE 28 MMOL/L (21-32); CHLORIDE 102 MMOL/L (98-107); CREATININE 1.1 MG/DL (0.55-1.30); POTASSIUM 3.4 MMOL/L (3.5-5.1); SODIUM 138 MMOL/L (136-145)
[2018-05-07 06:28] LABS: PHOSPHORUS 3.4 MG/DL (2.5-4.9)
[2018-05-07 08:00] VITALS: BP 112/84
[2018-05-07] MEDS: Heparin 5000 units/ml inj SUBQ SCH ×2 (08:44→20:10)
--- NOTE | 2018-05-07 10:16 | Pulmonology Progress Note ---
Assessment/Plan Problems: (1) Acute and chronic respiratory failure (2) Severe sepsis (3) COPD exacerbation (4) Hypertension Assessment/Plan pt became tachycardic yesterday and discharge was canceled. K supplement respiratory treatment myers cultures, sputum has GNB iv abx, on zosyn trial of Licocain has been helpful low dose Methadone seems to help titrate vent setting f/u pulse oximeter dvt prophylaxis. wbc is lower today Subjective ROS Limited/Unobtainable: Yes Constitutional: Reports: no symptoms HEENT: Repors: no symptoms Respiratory: Reports: no symptoms Allergies: Coded Allergies: No Known Allergies (Unverified , 06/17/16) Objective Last 24 Hour Vital Signs Date Time Temp Pulse Resp B/P (MAP) Pulse Ox O2 Delivery O2 Flow Rate FiO2 05/07/18 08:46 100 18 100 Mechanical Ventilator 30 05/07/18 08:46 30 05/07/18 08:42 103 18 30 05/07/18 08:00 Mechanical Ventilator 05/07/18 08:00 30 05/07/18 08:00 97.0 101 23 112/84 (93) 99 05/07/18 07:35 114 19 30 05/07/18 07:30 107 05/07/18 06:01 117 128/83 05/07/18 05:22 107 20 30 05/07/18 04:00 97.8 114 20 128/83 (98) 99 05/07/18 04:00 Mechanical Ventilator 05/07/18 04:00 112 05/07/18 04:00 30 05/07/18 02:43 109 19 30 05/07/18 01:13 101 19 100 Mechanical Ventilator 30 05/07/18 01:13 30 05/07/18 01:05 100 18 100 Mechanical Ventilator 30 05/07/18 01:05 106 18 30 05/07/18 00:00 98.0 129 21 130/77 (94) 98 05/07/18 00:00 Mechanical Ventilator 05/07/18 00:00 131 05/06/18 23:27 113 18 30 05/06/18 23:25 130 135/75 05/06/18 20:54 107 19 30 05/06/18 20:00 30 05/06/18 20:00 110 05/06/18 20:00 97.7 111 20 135/75 (95) 98 05/06/18 20:00 30 05/06/18 20:00 Mechanical Ventilator 05/06/18 19:20 98 20 99 Mechanical Ventilator 30 05/06/18 19:20 30 05/06/18 19:09 101 19 99 Mechanical Ventilator 30 05/06/18 19:00 111 21 30 05/06/18 17:41 123 159/88 05/06/18 17:30 112 22 30 05/06/18 16:00 Mechanical Ventilator 05/06/18 16:00 97.7 115 20 113/69 (84) 98 05/06/18 16:00 109 05/06/18 16:00 30 05/06/18 15:17 107 18 30 05/06/18 12:34 109 21 30 05/06/18 12:23 108 132/75 05/06/18 12:00 30 05/06/18 12:00 Mechanical Ventilator 05/06/18 12:00 97.5 108 21 132/75 (94) 98 05/06/18 11:47 111 05/06/18 11:10 118 22 30 Intake and Output 05/06/18 05/07/18 19:00 07:00 Intake Total 1010.0 ml 450 ml Output Total 775 ml 600 ml Balance 235.0 ml -150 ml Intake Oral 500 ml 450 ml IV Total 510.0 ml Output Urine Total 775 ml 600 ml # Voids 3 General Appearance: WD/WN HEENT: normocephalic, atraumatic Respiratory/Chest: chest wall non-tender, lungs clear Cardiovascular: normal peripheral pulses, normal rate Abdomen: normal bowel sounds, soft, non tender Genitourinary: normal external genitalia Extremities: no clubbing Microbiology Date/Time Source Procedure Growth Status 05/04/18 11:35 Blood Blood Culture - Preliminary NO GROWTH AFTER 48 HOURS Resulted 05/04/18 11:20 Blood Blood Culture - Preliminary NO GROWTH AFTER 48 HOURS Resulted 05/04/18 15:30 Sputum Gram Stain - Final Complete 05/04/18 15:30 Sputum Culture - Final Pseudomonas Aeruginosa Usual Respiratory Arlen Complete Laboratory Tests 05/07/18 05:16: White Blood Count 10.5, Red Blood Count 4.05L, Hemoglobin 11.6L, Hematocrit 34.7L, Mean Corpuscular Volume 86, Mean Corpuscular Hemoglobin 28.5, Mean Corpuscular Hemoglobin Concent 33.3, Red Cell Distribution Width 11.6, Platelet Count 379, Mean Platelet Volume 7.2, Neutrophils (%) (Auto) 67.1, Lymphocytes (% ) (Auto) 18.7L, Monocytes (%) (Auto) 9.2, Eosinophils (%) (Auto) 3.4H, Basophils (%) (Auto) 1.6, Sodium Level 138, Potassium Level 3.4L, Chloride Level 102, Carbon Dioxide Level 28, Anion Gap 8, Blood Urea Nitrogen 14, Creatinine 1.1, Estimat Glomerular Filtration Rate > 60, Glucose Level 104, Calcium Level 8.8, Phosphorus Level 3.4, Magnesium Level 2.4, Total Bilirubin 0.6, Aspartate Amino Transf (AST/SGOT) 14L, Alanine Aminotransferase (ALT/SGPT) 21, Alkaline Phosphatase 106, Total Protein 7.3, Albumin 2.2L, Globulin 5.1, Albumin/Globulin Ratio 0.4L Current Medications Medications (Trade) Dose Ordered Sig/Shraddha Route PRN Reason Start Time Stop Time Status Last Admin Dose Admin Acetaminophen (Tylenol) 650 mg Q4H PRN ORAL FEVER 04/29/18 17:09 05/29/18 17:08 Albuterol/ Ipratropium (Albuterol/ Ipratropium) 3 ml Q4H PRN HHN Shortness of Breath 05/06/18 10:31 05/11/18 10:30 05/07/18 08:46 Chlorpromazine (Thorazine) 25 mg Q6H PRN ORAL HICCUPS 05/05/18 14:45 06/04/18 14:44 05/06/18 21:01 Dextrose (Dextrose 50%) 25 ml Q30M PRN IV Hypoglycemia 04/29/18 17:15 05/29/18 17:12 Dextrose (Dextrose 50%) 50 ml Q30M PRN IV hypoglycemia 04/29/18 17:15 05/29/18 17:14 Diltiazem HCl (Cardizem) 30 mg EVERY 6 HOURS ORAL 04/30/18 00:00 05/30/18 00:00 05/07/18 06:01 Heparin Sodium (Porcine) (Heparin 5000 units/ml) 5,000 units EVERY 12 HOURS SUBQ 04/29/18 21:00 05/29/18 20:59 05/07/18 08:44 Lidocaine (Xylocaine 1% MPF 5ml) 10 ml Q4H PRN HHN persistent cough 04/30/18 10:15 05/30/18 10:14 05/05/18 14:41 Methadone HCl (Methadone HCl) 5 mg EVERY 12 HOURS ORAL 05/06/18 21:00 05/13/18 20:59 05/07/18 08:43 Ondansetron HCl (Zofran) 4 mg Q6H PRN IVP Nausea & Vomiting 04/29/18 17:15 05/29/18 17:14 Piperacillin Sod/ Tazobactam Sod 3.375 gm/Dextrose 110 ml @ 27.5 mls/hr Q8H IVPB 05/02/18 12:00 05/11/18 23:59 05/07/18 04:36 Polyethylene Glycol (Miralax) 17 gm DAILYPRN PRN ORAL Constipation 04/29/18 17:15 05/29/18 17:14 Demetrius Andrade MD May 07, 2018 10:16
--- NOTE | 2018-05-07 11:15 | Infectious Diseases Prog Note ---
Assessment/Plan Assessment/Plan ASSESSMENT: The patient is a 67-year-old male with, Fever, Sp Leukocytosis, Sp probable UIT : UCx: P mirabilis Probable HAPn (despite of negative chestx-ray) Scx: PSA and ( sterp GrpG and diphtheroids: colonizer ) , Scx: MDR PSA (S: Gent and Amik) Probable sepsis hx of Pneumonia MDR Pseudomonas/MRSA History of coag-negative staph and Acinetobacter bacteremia (December 2017) History of diabetes. Hypertension. Asthma History of colon cancer, status post hemicolectomy Right lower extremity DVT Pulmonary nodules PLAN: -continue the patient on Zoysn d# 01/13, Tobra INH d# 05/02 Sp vancomycin and meropenem day #4 -Monitor CBC -Monitor BMP -Monitor cultures (blood) -Monitor chest x-ray -Continue respiratory support Subjective Allergies: Coded Allergies: No Known Allergies (Unverified , 06/17/16) Subjective no new complain afebrile Objective Vital Signs Last 24 Hour Vital Signs Date Time Temp Pulse Resp B/P (MAP) Pulse Ox O2 Delivery O2 Flow Rate FiO2 05/07/18 10:43 105 20 30 05/07/18 08:46 100 18 100 Mechanical Ventilator 30 05/07/18 08:46 30 05/07/18 08:42 103 18 30 05/07/18 08:00 Mechanical Ventilator 05/07/18 08:00 30 05/07/18 08:00 97.0 101 23 112/84 (93) 99 05/07/18 07:35 114 19 30 05/07/18 07:30 107 05/07/18 06:01 117 128/83 05/07/18 05:22 107 20 30 05/07/18 04:00 97.8 114 20 128/83 (98) 99 05/07/18 04:00 Mechanical Ventilator 05/07/18 04:00 112 05/07/18 04:00 30 05/07/18 02:43 109 19 30 05/07/18 01:13 101 19 100 Mechanical Ventilator 30 05/07/18 01:13 30 05/07/18 01:05 100 18 100 Mechanical Ventilator 30 05/07/18 01:05 106 18 30 05/07/18 00:00 98.0 129 21 130/77 (94) 98 05/07/18 00:00 Mechanical Ventilator 05/07/18 00:00 131 05/06/18 23:27 113 18 30 05/06/18 23:25 130 135/75 05/06/18 20:54 107 19 30 05/06/18 20:00 30 05/06/18 20:00 110 05/06/18 20:00 97.7 111 20 135/75 (95) 98 05/06/18 20:00 30 05/06/18 20:00 Mechanical Ventilator 05/06/18 19:20 98 20 99 Mechanical Ventilator 30 05/06/18 19:20 30 05/06/18 19:09 101 19 99 Mechanical Ventilator 30 05/06/18 19:00 111 21 30 05/06/18 17:41 123 159/88 05/06/18 17:30 112 22 30 05/06/18 16:00 Mechanical Ventilator 05/06/18 16:00 97.7 115 20 113/69 (84) 98 05/06/18 16:00 109 05/06/18 16:00 30 05/06/18 15:17 107 18 30 05/06/18 12:34 109 21 30 05/06/18 12:23 108 132/75 05/06/18 12:00 30 05/06/18 12:00 Mechanical Ventilator 05/06/18 12:00 97.5 108 21 132/75 (94) 98 05/06/18 11:47 111 Height (Feet): 6 Height (Inches): 5.00 Weight (Pounds): 169 HEENT: atraumatic Respiratory/Chest: normal breath sounds Cardiovascular: regular rhythm Abdomen: no organomegaly Microbiology Date/Time Source Procedure Growth Status 05/04/18 11:35 Blood Blood Culture - Preliminary NO GROWTH AFTER 48 HOURS Resulted 05/04/18 11:20 Blood Blood Culture - Preliminary NO GROWTH AFTER 48 HOURS Resulted 05/04/18 15:30 Sputum Gram Stain - Final Complete 05/04/18 15:30 Sputum Culture - Final Pseudomonas Aeruginosa Usual Respiratory Arlen Complete Laboratory Tests Test 05/07/18 05:16 White Blood Count 10.5 K/UL (4.8-10.8) Red Blood Count 4.05 M/UL (4.70-6.10) L Hemoglobin 11.6 G/DL (14.2-18.0) L Hematocrit 34.7 % (42.0-52.0) L Mean Corpuscular Volume 86 FL (80-99) Mean Corpuscular Hemoglobin 28.5 PG (27.0-31.0) Mean Corpuscular Hemoglobin Concent 33.3 G/DL (32.0-36.0) Red Cell Distribution Width 11.6 % (11.6-14.8) Platelet Count 379 K/UL (150-450) Mean Platelet Volume 7.2 FL (6.5-10.1) Neutrophils (%) (Auto) 67.1 % (45.0-75.0) Lymphocytes (%) (Auto) 18.7 % (20.0-45.0) L Monocytes (%) (Auto) 9.2 % (1.0-10.0) Eosinophils (%) (Auto) 3.4 % (0.0-3.0) H Basophils (%) (Auto) 1.6 % (0.0-2.0) Sodium Level 138 MMOL/L (136-145) Potassium Level 3.4 MMOL/L (3.5-5.1) L Chloride Level 102 MMOL/L (98-107) Carbon Dioxide Level 28 MMOL/L (21-32) Anion Gap 8 mmol/L (5-15) Blood Urea Nitrogen 14 mg/dL (7-18) Creatinine 1.1 MG/DL (0.55-1.30) Estimat Glomerular Filtration Rate > 60 mL/min (>60) Glucose Level 104 MG/DL (74-106) Calcium Level 8.8 MG/DL (8.5-10.1) Phosphorus Level 3.4 MG/DL (2.5-4.9) Magnesium Level 2.4 MG/DL (1.8-2.4) Total Bilirubin 0.6 MG/DL (0.2-1.0) Aspartate Amino Transf (AST/SGOT) 14 U/L (15-37) L Alanine Aminotransferase (ALT/SGPT) 21 U/L (12-78) Alkaline Phosphatase 106 U/L (46-116) Total Protein 7.3 G/DL (6.4-8.2) Albumin 2.2 G/DL (3.4-5.0) L Globulin 5.1 g/dL Albumin/Globulin Ratio 0.4 (1.0-2.7) L Current Medications Medications (Trade) Dose Ordered Sig/Shraddha Route PRN Reason Start Time Stop Time Status Last Admin Dose Admin Acetaminophen (Tylenol) 650 mg Q4H PRN ORAL FEVER 04/29/18 17:09 05/29/18 17:08 Albuterol/ Ipratropium (Albuterol/ Ipratropium) 3 ml Q4H PRN HHN Shortness of Breath 05/06/18 10:31 05/11/18 10:30 05/07/18 08:46 Chlorpromazine (Thorazine) 25 mg Q6H PRN ORAL HICCUPS 05/05/18 14:45 06/04/18 14:44 05/06/18 21:01 Dextrose (Dextrose 50%) 25 ml Q30M PRN IV Hypoglycemia 04/29/18 17:15 05/29/18 17:12 Dextrose (Dextrose 50%) 50 ml Q30M PRN IV hypoglycemia 04/29/18 17:15 05/29/18 17:14 Diltiazem HCl (Cardizem) 30 mg EVERY 6 HOURS ORAL 04/30/18 00:00 05/30/18 00:00 05/07/18 06:01 Heparin Sodium (Porcine) (Heparin 5000 units/ml) 5,000 units EVERY 12 HOURS SUBQ 04/29/18 21:00 05/29/18 20:59 05/07/18 08:44 Lidocaine (Xylocaine 1% MPF 5ml) 10 ml Q4H PRN HHN persistent cough 04/30/18 10:15 05/30/18 10:14 05/05/18 14:41 Methadone HCl (Methadone HCl) 5 mg EVERY 12 HOURS ORAL 05/06/18 21:00 05/13/18 20:59 05/07/18 08:43 Morphine Sulfate (Morphine Sulfate) 4 mg Q4H PRN IVP For Pain 05/07/18 10:45 05/14/18 10:44 Ondansetron HCl (Zofran) 4 mg Q6H PRN IVP Nausea & Vomiting 04/29/18 17:15 05/29/18 17:14 Piperacillin Sod/ Tazobactam Sod 3.375 gm/Dextrose 110 ml @ 27.5 mls/hr Q8H IVPB 05/02/18 12:00 05/11/18 23:59 05/07/18 04:36 Polyethylene Glycol (Miralax) 17 gm DAILYPRN PRN ORAL Constipation 04/29/18 17:15 05/29/18 17:14 Potassium Chloride (K-Dur) 40 meq ONCE ORAL 05/07/18 10:38 05/07/18 11:38 Anibal Trujillo MD May 07, 2018 11:15
[2018-05-07 12:00] VITALS: BP 145/97
--- NOTE | 2018-05-07 14:14 | General Progress Note ---
Assessment/Plan Problem List: (1) Acute respiratory failure ICD Codes: J96.00 - Acute respiratory failure, unspecified whether with hypoxia or hypercapnia SNOMED: 78602430 (2) UTI (urinary tract infection) due to Enterococcus ICD Codes: N39.0 - Urinary tract infection, site not specified; B95.2 - Enterococcus as the cause of diseases classified elsewhere SNOMED: 952806058764926 (3) COPD exacerbation ICD Codes: J44.1 - Chronic obstructive pulmonary disease with (acute) exacerbation SNOMED: 146506350, 806910403 (4) Sepsis ICD Codes: A41.9 - Sepsis, unspecified organism SNOMED: 57659899 (5) Acute renal failure (ARF) ICD Codes: N17.9 - Acute kidney failure, unspecified SNOMED: 66894566 (6) Fever ICD Codes: R50.9 - Fever, unspecified SNOMED: 566258522 Status: stable, progressing Assessment/Plan vent abx gi f/u dc if clear Subjective Allergies: Coded Allergies: No Known Allergies (Unverified , 06/17/16) All Systems: reviewed and negative except above Subjective trach vent sleepy Objective Last 24 Hour Vital Signs Date Time Temp Pulse Resp B/P (MAP) Pulse Ox O2 Delivery O2 Flow Rate FiO2 05/07/18 13:47 30 05/07/18 13:47 104 20 100 Mechanical Ventilator 30 05/07/18 12:45 101 18 30 05/07/18 12:00 30 05/07/18 12:00 97.3 101 22 145/97 (113) 100 05/07/18 12:00 Mechanical Ventilator 05/07/18 11:33 109 05/07/18 11:25 101 145/97 05/07/18 10:43 105 20 30 05/07/18 08:46 100 18 100 Mechanical Ventilator 30 05/07/18 08:46 30 05/07/18 08:42 103 18 30 05/07/18 08:00 Mechanical Ventilator 05/07/18 08:00 30 05/07/18 08:00 97.0 101 23 112/84 (93) 99 05/07/18 07:35 114 19 30 05/07/18 07:30 107 05/07/18 06:01 117 128/83 05/07/18 05:22 107 20 30 05/07/18 04:00 97.8 114 20 128/83 (98) 99 05/07/18 04:00 Mechanical Ventilator 05/07/18 04:00 112 05/07/18 04:00 30 05/07/18 02:43 109 19 30 05/07/18 01:13 101 19 100 Mechanical Ventilator 30 05/07/18 01:13 30 05/07/18 01:05 100 18 100 Mechanical Ventilator 30 05/07/18 01:05 106 18 30 05/07/18 00:00 98.0 129 21 130/77 (94) 98 05/07/18 00:00 Mechanical Ventilator 05/07/18 00:00 131 05/06/18 23:27 113 18 30 05/06/18 23:25 130 135/75 05/06/18 20:54 107 19 30 05/06/18 20:00 30 05/06/18 20:00 110 05/06/18 20:00 97.7 111 20 135/75 (95) 98 05/06/18 20:00 30 05/06/18 20:00 Mechanical Ventilator 05/06/18 19:20 98 20 99 Mechanical Ventilator 30 05/06/18 19:20 30 05/06/18 19:09 101 19 99 Mechanical Ventilator 30 05/06/18 19:00 111 21 30 05/06/18 17:41 123 159/88 05/06/18 17:30 112 22 30 05/06/18 16:00 Mechanical Ventilator 05/06/18 16:00 97.7 115 20 113/69 (84) 98 05/06/18 16:00 109 05/06/18 16:00 30 05/06/18 15:17 107 18 30 Intake and Output 05/06/18 05/07/18 19:00 07:00 Intake Total 1010.0 ml 450 ml Output Total 775 ml 600 ml Balance 235.0 ml -150 ml Intake Oral 500 ml 450 ml IV Total 510.0 ml Output Urine Total 775 ml 600 ml # Voids 3 Laboratory Tests 05/07/18 05:16: White Blood Count 10.5, Red Blood Count 4.05L, Hemoglobin 11.6L, Hematocrit 34.7L, Mean Corpuscular Volume 86, Mean Corpuscular Hemoglobin 28.5, Mean Corpuscular Hemoglobin Concent 33.3, Red Cell Distribution Width 11.6, Platelet Count 379, Mean Platelet Volume 7.2, Neutrophils (%) (Auto) 67.1, Lymphocytes (% ) (Auto) 18.7L, Monocytes (%) (Auto) 9.2, Eosinophils (%) (Auto) 3.4H, Basophils (%) (Auto) 1.6, Sodium Level 138, Potassium Level 3.4L, Chloride Level 102, Carbon Dioxide Level 28, Anion Gap 8, Blood Urea Nitrogen 14, Creatinine 1.1, Estimat Glomerular Filtration Rate > 60, Glucose Level 104, Calcium Level 8.8, Phosphorus Level 3.4, Magnesium Level 2.4, Total Bilirubin 0.6, Aspartate Amino Transf (AST/SGOT) 14L, Alanine Aminotransferase (ALT/SGPT) 21, Alkaline Phosphatase 106, Total Protein 7.3, Albumin 2.2L, Globulin 5.1, Albumin/Globulin Ratio 0.4L Height (Feet): 6 Height (Inches): 5.00 Weight (Pounds): 169 General Appearance: lethargic EENT: normal ENT inspection Neck: normal alignment Cardiovascular: normal peripheral pulses, normal rate Respiratory/Chest: chest wall non-tender, lungs clear Abdomen: normal bowel sounds, non tender Extremities: normal inspection Edema: no edema noted Arm (L), no edema noted Arm (R), no edema noted Leg (L), no edema noted Leg (R), no edema noted Pedal (L), no edema noted Pedal (R), no edema noted Generalized Neurologic: motor weakness Skin: normal pigmentation, warm/dry Elan Petersen DO May 07, 2018 14:14
[2018-05-07 16:00] VITALS: BP 101/68
[2018-05-07] MEDS: Morphine Sulfate 4mg/ml Inj (IV/IM USE ONLY) IVP PRN (16:28)
[2018-05-07 20:00] VITALS: BP 112/72
[2018-05-07] MEDS: Milk of Magnesia 30ml Ud ORAL PRN (21:58)
[2018-05-07] MEDS ORDERED: Tobramycin for inhalation INH SCH ×2 (22:00)
[2018-05-07] MEDS: Tobramycin for inhalation INH SCH (22:50)
[2018-05-08] VITALS: BP 126/75
[2018-05-08] MEDS: Piperacillin/Tazobactam 3.375 GM in D5W 110 ML IVPB SCH ×3 (03:39→19:50)
[2018-05-08 04:00] VITALS: BP 116/81
[2018-05-08 05:17] LABS: BASOPHILS % (AUTO) 0.8 % (0.0-2.0); EOSINOPHILS % (AUTO) 4.7 % (0.0-3.0); HEMOGLOBIN 11.1 G/DL (14.2-18.0); MEAN CORPUSCULAR VOLUME 85 FL (80-99); MONOCYTES % (AUTO) 6.3 % (1.0-10.0); NEUTROPHILS % (AUTO) 63.2 % (45.0-75.0); PLATELET COUNT 356 K/UL (150-450); RED BLOOD COUNT 3.86 M/UL (4.70-6.10); RED CELL DISTRIBUTION WIDTH 11.8 % (11.6-14.8); WHITE BLOOD COUNT 9.4 K/UL (4.8-10.8)
[2018-05-08] MEDS: dilTIAZem HCl 30mg tab ORAL SCH ×3 (05:42→17:53)
[2018-05-08 05:43] LABS: ALANINE AMINOTRANSFERASE 19 U/L (12-78); ALBUMIN 2.2 G/DL (3.4-5.0); ALBUMIN/GLOBULIN RATIO 0.4 (1.0-2.7); ALKALINE PHOSPHATASE 100 U/L (46-116); ANION GAP 7 mmol/L (5-15); ASPARTATE AMINO TRANSFERASE 12 U/L (15-37); BILIRUBIN,TOTAL 0.7 MG/DL (0.2-1.0); BLOOD UREA NITROGEN 11 mg/dL (7-18); CALCIUM 8.7 MG/DL (8.5-10.1); CARBON DIOXIDE 29 MMOL/L (21-32); CHLORIDE 102 MMOL/L (98-107); CREATININE 1.1 MG/DL (0.55-1.30); PHOSPHORUS 3.1 MG/DL (2.5-4.9); POTASSIUM 3.7 MMOL/L (3.5-5.1); SODIUM 138 MMOL/L (136-145)
[2018-05-08 08:04] VITALS: BP 114/66
[2018-05-08] MEDS: Albuterol/Ipratropium 3ml neb HHN PRN (08:34)
[2018-05-08] MEDS: Heparin 5000 units/ml inj SUBQ SCH ×2 (09:00→21:09)
--- NOTE | 2018-05-08 10:05 | Pulmonology Progress Note ---
Assessment/Plan Problems: (1) Acute and chronic respiratory failure (2) Severe sepsis (3) COPD exacerbation (4) Hypertension Assessment/Plan doing better K supplement respiratory treatment myers cultures, sputum has GNB trial of Licocain has been helpful low dose Methadone seems to help titrate vent setting f/u pulse oximeter dvt prophylaxis. wbc is lower today Subjective ROS Limited/Unobtainable: No Constitutional: Reports: no symptoms HEENT: Repors: no symptoms Respiratory: Reports: no symptoms Allergies: Coded Allergies: No Known Allergies (Unverified , 06/17/16) Objective Last 24 Hour Vital Signs Date Time Temp Pulse Resp B/P (MAP) Pulse Ox O2 Delivery O2 Flow Rate FiO2 05/08/18 08:44 97 22 100 Mechanical Ventilator 30 05/08/18 08:34 91 20 100 Mechanical Ventilator 30 05/08/18 08:34 30 05/08/18 08:34 91 23 30 05/08/18 08:04 97.2 94 14 114/66 (82) 100 05/08/18 08:00 30 05/08/18 08:00 Mechanical Ventilator 05/08/18 06:44 89 18 30 05/08/18 05:42 95 114/62 05/08/18 05:02 100 21 30 05/08/18 04:00 Mechanical Ventilator 05/08/18 04:00 98.1 98 18 116/81 (93) 100 05/08/18 04:00 93 05/08/18 04:00 30 05/08/18 03:01 87 18 30 05/08/18 01:04 93 18 30 05/08/18 00:00 97.9 100 18 126/75 (92) 100 05/08/18 00:00 101 05/08/18 00:00 Mechanical Ventilator 05/07/18 23:18 101 121/86 05/07/18 23:06 89 23 100 Mechanical Ventilator 30 05/07/18 22:46 93 24 98 Mechanical Ventilator 30 05/07/18 22:42 85 19 30 05/07/18 21:30 92 23 100 Mechanical Ventilator 30 05/07/18 21:18 30 05/07/18 21:15 94 28 99 Mechanical Ventilator 30 05/07/18 21:14 94 26 30 05/07/18 20:00 30 05/07/18 20:00 Mechanical Ventilator 05/07/18 20:00 98.1 89 20 112/72 (85) 100 05/07/18 20:00 93 05/07/18 18:48 104 26 30 05/07/18 17:30 99 119/87 05/07/18 17:11 99 18 30 05/07/18 16:00 Mechanical Ventilator 05/07/18 16:00 30 05/07/18 16:00 97.2 103 22 101/68 (79) 100 05/07/18 15:48 99 05/07/18 15:30 98 18 30 05/07/18 13:47 30 05/07/18 13:47 104 20 100 Mechanical Ventilator 30 05/07/18 12:45 101 18 30 05/07/18 12:00 30 05/07/18 12:00 97.3 101 22 145/97 (113) 100 05/07/18 12:00 Mechanical Ventilator 05/07/18 11:33 109 05/07/18 11:25 101 145/97 05/07/18 10:43 105 20 30 Intake and Output 05/07/18 05/08/18 18:59 06:59 Intake Total 310.0 ml 192.5 ml Output Total 720 ml 650 ml Balance -410.0 ml -457.5 ml Intake Oral 200 ml IV Total 110.0 ml 192.5 ml Output Urine Total 720 ml 650 ml General Appearance: WD/WN HEENT: normocephalic Respiratory/Chest: chest wall non-tender, normal breath sounds Cardiovascular: normal peripheral pulses, normal rate, no JVD Abdomen: no organomegaly Genitourinary: normal external genitalia Extremities: no clubbing Skin: no lesions Laboratory Tests 05/08/18 04:00: White Blood Count 9.4, Red Blood Count 3.86L, Hemoglobin 11.1L, Hematocrit 33.0L , Mean Corpuscular Volume 85, Mean Corpuscular Hemoglobin 28.7, Mean Corpuscular Hemoglobin Concent 33.6, Red Cell Distribution Width 11.8, Platelet Count 356, Mean Platelet Volume 6.9, Neutrophils (%) (Auto) 63.2, Lymphocytes (% ) (Auto) 25.0, Monocytes (%) (Auto) 6.3, Eosinophils (%) (Auto) 4.7H, Basophils (%) (Auto) 0.8, Sodium Level 138, Potassium Level 3.7, Chloride Level 102, Carbon Dioxide Level 29, Anion Gap 7, Blood Urea Nitrogen 11, Creatinine 1.1, Estimat Glomerular Filtration Rate > 60, Glucose Level 87, Calcium Level 8.7, Phosphorus Level 3.1, Magnesium Level 2.5H, Total Bilirubin 0.7, Aspartate Amino Transf (AST/SGOT) 12L, Alanine Aminotransferase (ALT/SGPT) 19, Alkaline Phosphatase 100, Total Protein 7.1, Albumin 2.2L, Globulin 4.9, Albumin/ Globulin Ratio 0.4L Current Medications Medications (Trade) Dose Ordered Sig/Shraddha Route PRN Reason Start Time Stop Time Status Last Admin Dose Admin Acetaminophen (Tylenol) 650 mg Q4H PRN ORAL FEVER 04/29/18 17:09 05/29/18 17:08 Albuterol/ Ipratropium (Albuterol/ Ipratropium) 3 ml Q4H PRN HHN Shortness of Breath 05/06/18 10:31 05/11/18 10:30 05/08/18 08:34 Chlorpromazine (Thorazine) 25 mg Q6H PRN ORAL HICCUPS 05/05/18 14:45 06/04/18 14:44 05/06/18 21:01 Dextrose (Dextrose 50%) 25 ml Q30M PRN IV Hypoglycemia 04/29/18 17:15 05/29/18 17:12 Dextrose (Dextrose 50%) 50 ml Q30M PRN IV hypoglycemia 04/29/18 17:15 05/29/18 17:14 Diltiazem HCl (Cardizem) 30 mg EVERY 6 HOURS ORAL 04/30/18 00:00 05/30/18 00:00 05/08/18 05:42 Heparin Sodium (Porcine) (Heparin 5000 units/ml) 5,000 units EVERY 12 HOURS SUBQ 04/29/18 21:00 05/29/18 20:59 05/08/18 09:00 Lidocaine (Xylocaine 1% MPF 5ml) 10 ml Q4H PRN HHN persistent cough 04/30/18 10:15 05/30/18 10:14 05/05/18 14:41 Magnesium Hydroxide (Mom) 30 ml Q8H PRN ORAL Constipation 05/07/18 21:15 06/06/18 21:14 05/07/18 21:58 Methadone HCl (Methadone HCl) 5 mg EVERY 12 HOURS ORAL 05/06/18 21:00 05/13/18 20:59 05/08/18 08:59 Morphine Sulfate (Morphine Sulfate) 4 mg Q4H PRN IVP For Pain 05/07/18 10:45 05/14/18 10:44 05/07/18 16:28 Ondansetron HCl (Zofran) 4 mg Q6H PRN IVP Nausea & Vomiting 04/29/18 17:15 05/29/18 17:14 Piperacillin Sod/ Tazobactam Sod 3.375 gm/Dextrose 110 ml @ 27.5 mls/hr Q8H IVPB 05/02/18 12:00 05/11/18 23:59 05/08/18 03:39 Polyethylene Glycol (Miralax) 17 gm DAILYPRN PRN ORAL Constipation 04/29/18 17:15 05/29/18 17:14 Tobramycin Sulfate (Nebcin) 300 mg Q12HR@10,22 INH 05/07/18 22:00 05/14/18 21:59 05/07/18 22:50 Demetrius Andrade MD May 08, 2018 10:05
[2018-05-08] MEDS: chlorproMAZINE 25mg tab ORAL PRN ×2 (10:12→20:01)
[2018-05-08] MEDS ORDERED: Tubing IV Secondary IV ONE (10:28)
[2018-05-08] MEDS ORDERED: NS 275ml ONE (10:28)
[2018-05-08] MEDS: Tobramycin for inhalation INH SCH ×2 (11:12→21:14)
[2018-05-08 11:59] VITALS: BP 103/66
[2018-05-08] MEDS: Morphine Sulfate 4mg/ml Inj (IV/IM USE ONLY) IVP PRN (12:21)
--- NOTE | 2018-05-08 13:23 | General Progress Note ---
Assessment/Plan Problem List: (1) Acute respiratory failure ICD Codes: J96.00 - Acute respiratory failure, unspecified whether with hypoxia or hypercapnia SNOMED: 16328804 (2) UTI (urinary tract infection) due to Enterococcus ICD Codes: N39.0 - Urinary tract infection, site not specified; B95.2 - Enterococcus as the cause of diseases classified elsewhere SNOMED: 553365958075581 (3) COPD exacerbation ICD Codes: J44.1 - Chronic obstructive pulmonary disease with (acute) exacerbation SNOMED: 524847548, 761529744 (4) Sepsis ICD Codes: A41.9 - Sepsis, unspecified organism SNOMED: 14758510 (5) Acute renal failure (ARF) ICD Codes: N17.9 - Acute kidney failure, unspecified SNOMED: 54040953 (6) Fever ICD Codes: R50.9 - Fever, unspecified SNOMED: 490149755 Status: stable, progressing Assessment/Plan vent abx gi f/u cbc bmp am dc if clear Subjective Constitutional: Reports: weakness Allergies: Coded Allergies: No Known Allergies (Unverified , 06/17/16) All Systems: reviewed and negative except above Subjective trach vent sleepy Objective Last 24 Hour Vital Signs Date Time Temp Pulse Resp B/P (MAP) Pulse Ox O2 Delivery O2 Flow Rate FiO2 05/08/18 12:21 99 103/66 05/08/18 12:00 30 05/08/18 12:00 Mechanical Ventilator 05/08/18 12:00 102 05/08/18 11:59 97.5 99 16 103/66 (78) 100 05/08/18 11:12 94 21 30 05/08/18 08:44 97 22 100 Mechanical Ventilator 30 05/08/18 08:34 91 20 100 Mechanical Ventilator 30 05/08/18 08:34 30 05/08/18 08:34 91 23 30 05/08/18 08:04 97.2 94 14 114/66 (82) 100 05/08/18 08:00 30 05/08/18 08:00 Mechanical Ventilator 05/08/18 07:51 97 05/08/18 06:44 89 18 30 05/08/18 05:42 95 114/62 05/08/18 05:02 100 21 30 05/08/18 04:00 Mechanical Ventilator 05/08/18 04:00 98.1 98 18 116/81 (93) 100 05/08/18 04:00 93 05/08/18 04:00 30 05/08/18 03:01 87 18 30 05/08/18 01:04 93 18 30 05/08/18 00:00 97.9 100 18 126/75 (92) 100 05/08/18 00:00 101 05/08/18 00:00 Mechanical Ventilator 05/07/18 23:18 101 121/86 05/07/18 23:06 89 23 100 Mechanical Ventilator 30 05/07/18 22:46 93 24 98 Mechanical Ventilator 30 05/07/18 22:42 85 19 30 05/07/18 21:30 92 23 100 Mechanical Ventilator 30 05/07/18 21:18 30 05/07/18 21:15 94 28 99 Mechanical Ventilator 30 05/07/18 21:14 94 26 30 05/07/18 20:00 30 05/07/18 20:00 Mechanical Ventilator 05/07/18 20:00 98.1 89 20 112/72 (85) 100 05/07/18 20:00 93 05/07/18 18:48 104 26 30 05/07/18 17:30 99 119/87 05/07/18 17:11 99 18 30 05/07/18 16:00 Mechanical Ventilator 05/07/18 16:00 30 05/07/18 16:00 97.2 103 22 101/68 (79) 100 05/07/18 15:48 99 05/07/18 15:30 98 18 30 05/07/18 13:47 30 05/07/18 13:47 104 20 100 Mechanical Ventilator 30 Intake and Output 05/07/18 05/08/18 19:00 07:00 Intake Total 310.0 ml 192.5 ml Output Total 720 ml 650 ml Balance -410.0 ml -457.5 ml Intake Oral 200 ml IV Total 110.0 ml 192.5 ml Output Urine Total 720 ml 650 ml Laboratory Tests 05/08/18 04:00: White Blood Count 9.4, Red Blood Count 3.86L, Hemoglobin 11.1L, Hematocrit 33.0L , Mean Corpuscular Volume 85, Mean Corpuscular Hemoglobin 28.7, Mean Corpuscular Hemoglobin Concent 33.6, Red Cell Distribution Width 11.8, Platelet Count 356, Mean Platelet Volume 6.9, Neutrophils (%) (Auto) 63.2, Lymphocytes (% ) (Auto) 25.0, Monocytes (%) (Auto) 6.3, Eosinophils (%) (Auto) 4.7H, Basophils (%) (Auto) 0.8, Sodium Level 138, Potassium Level 3.7, Chloride Level 102, Carbon Dioxide Level 29, Anion Gap 7, Blood Urea Nitrogen 11, Creatinine 1.1, Estimat Glomerular Filtration Rate > 60, Glucose Level 87, Calcium Level 8.7, Phosphorus Level 3.1, Magnesium Level 2.5H, Total Bilirubin 0.7, Aspartate Amino Transf (AST/SGOT) 12L, Alanine Aminotransferase (ALT/SGPT) 19, Alkaline Phosphatase 100, Total Protein 7.1, Albumin 2.2L, Globulin 4.9, Albumin/ Globulin Ratio 0.4L Height (Feet): 6 Height (Inches): 5.00 Weight (Pounds): 169 General Appearance: lethargic EENT: normal ENT inspection Neck: normal alignment Cardiovascular: normal peripheral pulses, normal rate, regular rhythm Respiratory/Chest: chest wall non-tender, lungs clear, normal breath sounds Abdomen: normal bowel sounds, non tender, soft Extremities: normal inspection Edema: no edema noted Arm (L), no edema noted Arm (R), no edema noted Leg (L), no edema noted Leg (R), no edema noted Pedal (L), no edema noted Pedal (R), no edema noted Generalized Neurologic: motor weakness Skin: normal pigmentation, warm/dry Elan Petersen DO May 08, 2018 13:23
--- NOTE | 2018-05-08 15:13 | Infectious Diseases Prog Note ---
Assessment/Plan Assessment/Plan ASSESSMENT: The patient is a 67-year-old male with, Fever, Sp Leukocytosis, Sp probable UIT : UCx: P mirabilis Probable HAPn (despite of negative chestx-ray) Scx: PSA and ( sterp GrpG and diphtheroids: colonizer ) , Scx: MDR PSA (S: Gent and Amik) Probable sepsis hx of Pneumonia MDR Pseudomonas/MRSA History of coag-negative staph and Acinetobacter bacteremia (December 2017) History of diabetes. Hypertension. Asthma History of colon cancer, status post hemicolectomy Right lower extremity DVT Pulmonary nodules PLAN: -continue the patient on Zoysn d# /, Tobra INH d# 2/ 7 05/02 Sp vancomycin and meropenem day #4 -Monitor CBC -Monitor BMP -Monitor cultures (blood) -Monitor chest x-ray -Continue respiratory support Subjective Allergies: Coded Allergies: No Known Allergies (Unverified , 06/17/16) Subjective no new complain afebrile Objective Vital Signs Last 24 Hour Vital Signs Date Time Temp Pulse Resp B/P (MAP) Pulse Ox O2 Delivery O2 Flow Rate FiO2 05/08/18 14:48 91 20 30 05/08/18 12:50 89 22 30 05/08/18 12:21 99 103/66 05/08/18 12:00 30 05/08/18 12:00 Mechanical Ventilator 05/08/18 12:00 102 05/08/18 11:59 97.5 99 16 103/66 (78) 100 05/08/18 11:12 94 21 30 05/08/18 08:44 97 22 100 Mechanical Ventilator 30 05/08/18 08:34 91 20 100 Mechanical Ventilator 30 05/08/18 08:34 30 05/08/18 08:34 91 23 30 05/08/18 08:04 97.2 94 14 114/66 (82) 100 05/08/18 08:00 30 05/08/18 08:00 Mechanical Ventilator 05/08/18 07:51 97 05/08/18 06:44 89 18 30 05/08/18 05:42 95 114/62 05/08/18 05:02 100 21 30 05/08/18 04:00 Mechanical Ventilator 05/08/18 04:00 98.1 98 18 116/81 (93) 100 05/08/18 04:00 93 05/08/18 04:00 30 05/08/18 03:01 87 18 30 05/08/18 01:04 93 18 30 05/08/18 00:00 97.9 100 18 126/75 (92) 100 05/08/18 00:00 101 05/08/18 00:00 Mechanical Ventilator 05/07/18 23:18 101 121/86 05/07/18 23:06 89 23 100 Mechanical Ventilator 30 05/07/18 22:46 93 24 98 Mechanical Ventilator 30 05/07/18 22:42 85 19 30 05/07/18 21:30 92 23 100 Mechanical Ventilator 30 05/07/18 21:18 30 05/07/18 21:15 94 28 99 Mechanical Ventilator 30 05/07/18 21:14 94 26 30 05/07/18 20:00 30 05/07/18 20:00 Mechanical Ventilator 05/07/18 20:00 98.1 89 20 112/72 (85) 100 05/07/18 20:00 93 05/07/18 18:48 104 26 30 05/07/18 17:30 99 119/87 05/07/18 17:11 99 18 30 05/07/18 16:00 Mechanical Ventilator 05/07/18 16:00 30 05/07/18 16:00 97.2 103 22 101/68 (79) 100 05/07/18 15:48 99 05/07/18 15:30 98 18 30 Height (Feet): 6 Height (Inches): 5.00 Weight (Pounds): 169 HEENT: anicteric Respiratory/Chest: no respiratory distress Cardiovascular: normal rate Abdomen: no organomegaly Laboratory Tests Test 05/08/18 04:00 White Blood Count 9.4 K/UL (4.8-10.8) Red Blood Count 3.86 M/UL (4.70-6.10) L Hemoglobin 11.1 G/DL (14.2-18.0) L Hematocrit 33.0 % (42.0-52.0) L Mean Corpuscular Volume 85 FL (80-99) Mean Corpuscular Hemoglobin 28.7 PG (27.0-31.0) Mean Corpuscular Hemoglobin Concent 33.6 G/DL (32.0-36.0) Red Cell Distribution Width 11.8 % (11.6-14.8) Platelet Count 356 K/UL (150-450) Mean Platelet Volume 6.9 FL (6.5-10.1) Neutrophils (%) (Auto) 63.2 % (45.0-75.0) Lymphocytes (%) (Auto) 25.0 % (20.0-45.0) Monocytes (%) (Auto) 6.3 % (1.0-10.0) Eosinophils (%) (Auto) 4.7 % (0.0-3.0) H Basophils (%) (Auto) 0.8 % (0.0-2.0) Sodium Level 138 MMOL/L (136-145) Potassium Level 3.7 MMOL/L (3.5-5.1) Chloride Level 102 MMOL/L (98-107) Carbon Dioxide Level 29 MMOL/L (21-32) Anion Gap 7 mmol/L (5-15) Blood Urea Nitrogen 11 mg/dL (7-18) Creatinine 1.1 MG/DL (0.55-1.30) Estimat Glomerular Filtration Rate > 60 mL/min (>60) Glucose Level 87 MG/DL (74-106) Calcium Level 8.7 MG/DL (8.5-10.1) Phosphorus Level 3.1 MG/DL (2.5-4.9) Magnesium Level 2.5 MG/DL (1.8-2.4) H Total Bilirubin 0.7 MG/DL (0.2-1.0) Aspartate Amino Transf (AST/SGOT) 12 U/L (15-37) L Alanine Aminotransferase (ALT/SGPT) 19 U/L (12-78) Alkaline Phosphatase 100 U/L (46-116) Total Protein 7.1 G/DL (6.4-8.2) Albumin 2.2 G/DL (3.4-5.0) L Globulin 4.9 g/dL Albumin/Globulin Ratio 0.4 (1.0-2.7) L Current Medications Medications (Trade) Dose Ordered Sig/Shraddha Route PRN Reason Start Time Stop Time Status Last Admin Dose Admin Acetaminophen (Tylenol) 650 mg Q4H PRN ORAL FEVER 04/29/18 17:09 05/29/18 17:08 Albuterol/ Ipratropium (Albuterol/ Ipratropium) 3 ml Q4H PRN HHN Shortness of Breath 05/06/18 10:31 05/11/18 10:30 05/08/18 08:34 Chlorpromazine (Thorazine) 25 mg Q6H PRN ORAL HICCUPS 05/05/18 14:45 06/04/18 14:44 05/08/18 10:12 Dextrose (Dextrose 50%) 25 ml Q30M PRN IV Hypoglycemia 04/29/18 17:15 05/29/18 17:12 Dextrose (Dextrose 50%) 50 ml Q30M PRN IV hypoglycemia 04/29/18 17:15 05/29/18 17:14 Diltiazem HCl (Cardizem) 30 mg EVERY 6 HOURS ORAL 04/30/18 00:00 05/30/18 00:00 05/08/18 12:21 Heparin Sodium (Porcine) (Heparin 5000 units/ml) 5,000 units EVERY 12 HOURS SUBQ 04/29/18 21:00 05/29/18 20:59 05/08/18 09:00 Lidocaine (Xylocaine 1% MPF 5ml) 10 ml Q4H PRN HHN persistent cough 04/30/18 10:15 05/30/18 10:14 05/05/18 14:41 Magnesium Hydroxide (Mom) 30 ml Q8H PRN ORAL Constipation 05/07/18 21:15 06/06/18 21:14 05/07/18 21:58 Methadone HCl (Methadone HCl) 5 mg EVERY 12 HOURS ORAL 05/06/18 21:00 05/13/18 20:59 05/08/18 08:59 Morphine Sulfate (Morphine Sulfate) 4 mg Q4H PRN IVP For Pain 05/07/18 10:45 05/14/18 10:44 05/08/18 12:21 Ondansetron HCl (Zofran) 4 mg Q6H PRN IVP Nausea & Vomiting 04/29/18 17:15 05/29/18 17:14 Piperacillin Sod/ Tazobactam Sod 3.375 gm/Dextrose 110 ml @ 27.5 mls/hr Q8H IVPB 05/02/18 12:00 05/11/18 23:59 05/08/18 12:20 Polyethylene Glycol (Miralax) 17 gm DAILYPRN PRN ORAL Constipation 04/29/18 17:15 05/29/18 17:14 Tobramycin Sulfate (Nebcin) 300 mg Q12HR@10,22 INH 05/07/18 22:00 05/14/18 21:59 05/08/18 11:12 Anibal Trujillo MD May 08, 2018 15:13
[2018-05-08 16:00] VITALS: BP 104/74
[2018-05-08] MEDS: Milk of Magnesia 30ml Ud ORAL PRN (18:46)
--- NOTE | 2018-05-08 19:29 | Cardiology Progress Note ---
Assessment/Plan Assessment/Plan 1. Dyspnea likely pulmonary in origin, due to acute exacerbation of COPD. 2D echocardiography shows normal LVEF. 2. Sinus tachycardia, increase Diltiazem to 60mg tid. 3. History of diabetes mellitus, will consider aspirin and statin. 4. Ventilatory-drive respiratory failure, status post tracheostomy tube placement. 5. History of DVT. Subjective Subjective Sinus tachycardia at 107. Objective Last 24 Hour Vital Signs Date Time Temp Pulse Resp B/P (MAP) Pulse Ox O2 Delivery O2 Flow Rate FiO2 05/08/18 18:50 107 25 30 05/08/18 17:53 95 104/74 05/08/18 16:45 95 19 30 05/08/18 16:00 97.9 89 18 104/74 (84) 100 05/08/18 16:00 30 05/08/18 16:00 Mechanical Ventilator 05/08/18 15:36 92 05/08/18 14:48 91 20 30 05/08/18 12:50 89 22 30 05/08/18 12:21 99 103/66 05/08/18 12:00 30 05/08/18 12:00 Mechanical Ventilator 05/08/18 12:00 102 05/08/18 11:59 97.5 99 16 103/66 (78) 100 05/08/18 11:12 94 21 30 05/08/18 08:44 97 22 100 Mechanical Ventilator 30 05/08/18 08:34 91 20 100 Mechanical Ventilator 30 05/08/18 08:34 30 05/08/18 08:34 91 23 30 05/08/18 08:04 97.2 94 14 114/66 (82) 100 05/08/18 08:00 30 05/08/18 08:00 Mechanical Ventilator 05/08/18 07:51 97 05/08/18 06:44 89 18 30 05/08/18 05:42 95 114/62 05/08/18 05:02 100 21 30 05/08/18 04:00 Mechanical Ventilator 05/08/18 04:00 98.1 98 18 116/81 (93) 100 05/08/18 04:00 93 05/08/18 04:00 30 05/08/18 03:01 87 18 30 05/08/18 01:04 93 18 30 05/08/18 00:00 97.9 100 18 126/75 (92) 100 05/08/18 00:00 101 05/08/18 00:00 Mechanical Ventilator 05/07/18 23:18 101 121/86 05/07/18 23:06 89 23 100 Mechanical Ventilator 30 05/07/18 22:46 93 24 98 Mechanical Ventilator 30 05/07/18 22:42 85 19 30 05/07/18 21:30 92 23 100 Mechanical Ventilator 30 05/07/18 21:18 30 05/07/18 21:15 94 28 99 Mechanical Ventilator 30 05/07/18 21:14 94 26 30 05/07/18 20:00 30 05/07/18 20:00 Mechanical Ventilator 05/07/18 20:00 98.1 89 20 112/72 (85) 100 05/07/18 20:00 93 Intake and Output 05/07/18 05/08/18 19:00 07:00 Intake Total 310.0 ml 192.5 ml Output Total 720 ml 650 ml Balance -410.0 ml -457.5 ml Intake Oral 200 ml IV Total 110.0 ml 192.5 ml Output Urine Total 720 ml 650 ml Laboratory Tests Test 05/08/18 04:00 White Blood Count 9.4 K/UL (4.8-10.8) Red Blood Count 3.86 M/UL (4.70-6.10) L Hemoglobin 11.1 G/DL (14.2-18.0) L Hematocrit 33.0 % (42.0-52.0) L Mean Corpuscular Volume 85 FL (80-99) Mean Corpuscular Hemoglobin 28.7 PG (27.0-31.0) Mean Corpuscular Hemoglobin Concent 33.6 G/DL (32.0-36.0) Red Cell Distribution Width 11.8 % (11.6-14.8) Platelet Count 356 K/UL (150-450) Mean Platelet Volume 6.9 FL (6.5-10.1) Neutrophils (%) (Auto) 63.2 % (45.0-75.0) Lymphocytes (%) (Auto) 25.0 % (20.0-45.0) Monocytes (%) (Auto) 6.3 % (1.0-10.0) Eosinophils (%) (Auto) 4.7 % (0.0-3.0) H Basophils (%) (Auto) 0.8 % (0.0-2.0) Sodium Level 138 MMOL/L (136-145) Potassium Level 3.7 MMOL/L (3.5-5.1) Chloride Level 102 MMOL/L (98-107) Carbon Dioxide Level 29 MMOL/L (21-32) Anion Gap 7 mmol/L (5-15) Blood Urea Nitrogen 11 mg/dL (7-18) Creatinine 1.1 MG/DL (0.55-1.30) Estimat Glomerular Filtration Rate > 60 mL/min (>60) Glucose Level 87 MG/DL (74-106) Calcium Level 8.7 MG/DL (8.5-10.1) Phosphorus Level 3.1 MG/DL (2.5-4.9) Magnesium Level 2.5 MG/DL (1.8-2.4) H Total Bilirubin 0.7 MG/DL (0.2-1.0) Aspartate Amino Transf (AST/SGOT) 12 U/L (15-37) L Alanine Aminotransferase (ALT/SGPT) 19 U/L (12-78) Alkaline Phosphatase 100 U/L (46-116) Total Protein 7.1 G/DL (6.4-8.2) Albumin 2.2 G/DL (3.4-5.0) L Globulin 4.9 g/dL Albumin/Globulin Ratio 0.4 (1.0-2.7) L Objective HEENT: Atraumatic and normocephalic. Anicteric. Pupils are equal, round, and reactive to light and accommodation. Conjunctival pallor. NECK: Presence of a tracheostomy tube. No carotid bruit. Carotid upstrokes 2+ bilaterally. CVS: Normal S1, S2. Regular. Tachycardic. No murmurs, gallops, or rubs. LUNGS: Expiratory wheezing throughout both lungs. Diminished breath sounds throughout. ABDOMEN: Soft, nontender, and nondistended. No hepatosplenomegaly. Positive bowel sounds. EXTREMITIES: No evidence of edema, clubbing, or cyanosis. Jose Pandya MD May 08, 2018 19:29
[2018-05-08 20:00] VITALS: BP 96/77
[2018-05-08] MEDS: dilTIAZem HCl 60mg tab ORAL SCH (22:00)
[2018-05-09] VITALS: BP 120/75
[2018-05-09] MEDS: Morphine Sulfate 4mg/ml Inj (IV/IM USE ONLY) IVP PRN ×4 (00:30→20:12)
[2018-05-09] MEDS: Piperacillin/Tazobactam 3.375 GM in D5W 110 ML IVPB SCH ×3 (03:50→20:12)
[2018-05-09 04:00] VITALS: BP 104/70
[2018-05-09 05:10] LABS: BASOPHILS % (AUTO) 0.7 % (0.0-2.0); EOSINOPHILS % (AUTO) 3.6 % (0.0-3.0); HEMATOCRIT 34.5 % (42.0-52.0); HEMOGLOBIN 11.5 G/DL (14.2-18.0); LYMPHOCYTES % (AUTO) 20.3 % (20.0-45.0); MEAN CORPUSCULAR VOLUME 86 FL (80-99); MONOCYTES % (AUTO) 7.4 % (1.0-10.0); NEUTROPHILS % (AUTO) 68.1 % (45.0-75.0); PLATELET COUNT 353 K/UL (150-450); RED CELL DISTRIBUTION WIDTH 12.2 % (11.6-14.8); WHITE BLOOD COUNT 12.1 K/UL (4.8-10.8)
[2018-05-09] MEDS: Albuterol/Ipratropium 3ml neb HHN PRN ×3 (05:32→22:10)
[2018-05-09 05:36] LABS: ALANINE AMINOTRANSFERASE 14 U/L (12-78); ALBUMIN 2.2 G/DL (3.4-5.0); ALBUMIN/GLOBULIN RATIO 0.4 (1.0-2.7); ALKALINE PHOSPHATASE 101 U/L (46-116); ANION GAP 8 mmol/L (5-15); ASPARTATE AMINO TRANSFERASE 12 U/L (15-37); BILIRUBIN,TOTAL 0.7 MG/DL (0.2-1.0); BLOOD UREA NITROGEN 12 mg/dL (7-18); CALCIUM 8.8 MG/DL (8.5-10.1); CARBON DIOXIDE 28 MMOL/L (21-32); CHLORIDE 101 MMOL/L (98-107); CREATININE 1.3 MG/DL (0.55-1.30); PHOSPHORUS 3.5 MG/DL (2.5-4.9); SODIUM 137 MMOL/L (136-145)
[2018-05-09] MEDS: dilTIAZem HCl 60mg tab ORAL SCH ×3 (05:50→21:49)
[2018-05-09] MEDS: Milk of Magnesia 30ml Ud ORAL PRN (05:50)
--- NOTE | 2018-05-09 07:20 | General Progress Note ---
Assessment/Plan Problem List: (1) Acute respiratory failure ICD Codes: J96.00 - Acute respiratory failure, unspecified whether with hypoxia or hypercapnia SNOMED: 79028299 (2) UTI (urinary tract infection) due to Enterococcus ICD Codes: N39.0 - Urinary tract infection, site not specified; B95.2 - Enterococcus as the cause of diseases classified elsewhere SNOMED: 935636246424082 (3) COPD exacerbation ICD Codes: J44.1 - Chronic obstructive pulmonary disease with (acute) exacerbation SNOMED: 489828978, 656073242 (4) Sepsis ICD Codes: A41.9 - Sepsis, unspecified organism SNOMED: 28320527 (5) Acute renal failure (ARF) ICD Codes: N17.9 - Acute kidney failure, unspecified SNOMED: 27606434 (6) Fever ICD Codes: R50.9 - Fever, unspecified SNOMED: 033833184 Assessment/Plan vent abx gi f/u cbc bmp am dc if clear Subjective Constitutional: Reports: weakness Allergies: Coded Allergies: No Known Allergies (Unverified , 06/17/16) All Systems: reviewed and negative except above Subjective trach vent sleepy Objective Last 24 Hour Vital Signs Date Time Temp Pulse Resp B/P (MAP) Pulse Ox O2 Delivery O2 Flow Rate FiO2 05/09/18 06:59 96 28 30 05/09/18 05:50 110 120/77 05/09/18 05:41 112 27 100 Mechanical Ventilator 30 05/09/18 05:31 109 22 100 Mechanical Ventilator 30 05/09/18 05:31 30 05/09/18 05:29 109 20 30 05/09/18 04:00 97.9 108 21 104/70 (81) 100 05/09/18 04:00 108 05/09/18 04:00 30 05/09/18 04:00 Mechanical Ventilator 05/09/18 02:34 104 18 30 05/09/18 01:27 109 18 30 05/09/18 00:00 Mechanical Ventilator 05/09/18 00:00 30 05/09/18 00:00 111 05/09/18 00:00 98.1 110 21 120/75 (90) 100 05/08/18 23:18 100 18 30 05/08/18 22:00 104 102/50 05/08/18 21:45 100 18 100 Mechanical Ventilator 30 05/08/18 21:16 105 21 100 Mechanical Ventilator 30 05/08/18 21:14 99 22 30 05/08/18 20:00 30 05/08/18 20:00 99 05/08/18 20:00 98.1 107 21 96/77 (83) 100 05/08/18 20:00 Mechanical Ventilator 05/08/18 18:50 107 25 30 05/08/18 17:53 95 104/74 05/08/18 16:45 95 19 30 05/08/18 16:00 97.9 89 18 104/74 (84) 100 05/08/18 16:00 30 05/08/18 16:00 Mechanical Ventilator 05/08/18 15:36 92 05/08/18 14:48 91 20 30 05/08/18 12:50 89 22 30 05/08/18 12:21 99 103/66 05/08/18 12:00 30 05/08/18 12:00 Mechanical Ventilator 05/08/18 12:00 102 05/08/18 11:59 97.5 99 16 103/66 (78) 100 05/08/18 11:12 94 21 30 05/08/18 08:44 97 22 100 Mechanical Ventilator 30 05/08/18 08:34 91 20 100 Mechanical Ventilator 30 05/08/18 08:34 30 05/08/18 08:34 91 23 30 05/08/18 08:04 97.2 94 14 114/66 (82) 100 05/08/18 08:00 30 05/08/18 08:00 Mechanical Ventilator 05/08/18 07:51 97 Intake and Output 05/08/18 05/09/18 18:59 06:59 Intake Total 510.0 ml 432.5 ml Output Total 400 ml 550 ml Balance 110.0 ml -117.5 ml Intake Oral 400 ml 240 ml IV Total 110.0 ml 192.5 ml Output Urine Total 400 ml 550 ml Laboratory Tests 05/09/18 03:45: White Blood Count 12.1H, Red Blood Count 4.00L, Hemoglobin 11.5L, Hematocrit 34.5L, Mean Corpuscular Volume 86, Mean Corpuscular Hemoglobin 28.7, Mean Corpuscular Hemoglobin Concent 33.2, Red Cell Distribution Width 12.2, Platelet Count 353, Mean Platelet Volume 6.9, Neutrophils (%) (Auto) 68.1, Lymphocytes (% ) (Auto) 20.3, Monocytes (%) (Auto) 7.4, Eosinophils (%) (Auto) 3.6H, Basophils (%) (Auto) 0.7, Sodium Level 137, Potassium Level 4.0, Chloride Level 101, Carbon Dioxide Level 28, Anion Gap 8, Blood Urea Nitrogen 12, Creatinine 1.3, Estimat Glomerular Filtration Rate > 60, Glucose Level 104, Calcium Level 8.8, Phosphorus Level 3.5, Magnesium Level 2.6H, Total Bilirubin 0.7, Aspartate Amino Transf (AST/SGOT) 12L, Alanine Aminotransferase (ALT/SGPT) 14, Alkaline Phosphatase 101, Total Protein 7.6, Albumin 2.2L, Globulin 5.4, Albumin/ Globulin Ratio 0.4L Height (Feet): 6 Height (Inches): 5.00 Weight (Pounds): 169 General Appearance: lethargic EENT: normal ENT inspection Neck: normal alignment Cardiovascular: normal peripheral pulses, normal rate, regular rhythm Respiratory/Chest: chest wall non-tender, lungs clear, normal breath sounds Abdomen: normal bowel sounds, non tender, soft Extremities: normal inspection Edema: no edema noted Arm (L), no edema noted Arm (R), no edema noted Leg (L), no edema noted Leg (R), no edema noted Pedal (L), no edema noted Pedal (R), no edema noted Generalized Neurologic: motor weakness Skin: normal pigmentation, warm/dry Elan Petersen DO May 09, 2018 07:20
--- NOTE | 2018-05-09 07:47 | Infectious Diseases Prog Note ---
Assessment/Plan Assessment/Plan ASSESSMENT: The patient is a 67-year-old male with, Fever, Sp Leukocytosis, Sp probable UIT : UCx: P mirabilis Probable HAPn (despite of negative chestx-ray) Scx: PSA and ( sterp GrpG and diphtheroids: colonizer ) , Scx: MDR PSA (S: Gent and Amik) Probable sepsis hx of Pneumonia MDR Pseudomonas/MRSA History of coag-negative staph and Acinetobacter bacteremia (December 2017) History of diabetes. Hypertension. Asthma History of colon cancer, status post hemicolectomy Right lower extremity DVT Pulmonary nodules PLAN: -continue the patient on Zoysn d# 9/, Tobra INH d# 3/ 7 05/02 Sp vancomycin and meropenem day #4 -Monitor CBC -Monitor BMP -Monitor cultures (blood) -Monitor chest x-ray -Continue respiratory support Subjective Allergies: Coded Allergies: No Known Allergies (Unverified , 06/17/16) Subjective Remains afebrile Mild leukocytosis Says he is feeing well. No new complaints Objective Vital Signs Last 24 Hour Vital Signs Date Time Temp Pulse Resp B/P (MAP) Pulse Ox O2 Delivery O2 Flow Rate FiO2 05/09/18 06:59 96 28 30 05/09/18 05:50 110 120/77 05/09/18 05:41 112 27 100 Mechanical Ventilator 30 05/09/18 05:31 109 22 100 Mechanical Ventilator 30 05/09/18 05:31 30 05/09/18 05:29 109 20 30 05/09/18 04:00 97.9 108 21 104/70 (81) 100 05/09/18 04:00 108 05/09/18 04:00 30 05/09/18 04:00 Mechanical Ventilator 05/09/18 02:34 104 18 30 05/09/18 01:27 109 18 30 05/09/18 00:00 Mechanical Ventilator 05/09/18 00:00 30 05/09/18 00:00 111 05/09/18 00:00 98.1 110 21 120/75 (90) 100 05/08/18 23:18 100 18 30 05/08/18 22:00 104 102/50 05/08/18 21:45 100 18 100 Mechanical Ventilator 30 05/08/18 21:16 105 21 100 Mechanical Ventilator 30 05/08/18 21:14 99 22 30 05/08/18 20:00 30 05/08/18 20:00 99 05/08/18 20:00 98.1 107 21 96/77 (83) 100 05/08/18 20:00 Mechanical Ventilator 05/08/18 18:50 107 25 30 05/08/18 17:53 95 104/74 05/08/18 16:45 95 19 30 05/08/18 16:00 97.9 89 18 104/74 (84) 100 05/08/18 16:00 30 05/08/18 16:00 Mechanical Ventilator 05/08/18 15:36 92 05/08/18 14:48 91 20 30 05/08/18 12:50 89 22 30 05/08/18 12:21 99 103/66 05/08/18 12:00 30 05/08/18 12:00 Mechanical Ventilator 05/08/18 12:00 102 05/08/18 11:59 97.5 99 16 103/66 (78) 100 05/08/18 11:12 94 21 30 05/08/18 08:44 97 22 100 Mechanical Ventilator 30 05/08/18 08:34 91 20 100 Mechanical Ventilator 30 05/08/18 08:34 30 05/08/18 08:34 91 23 30 05/08/18 08:04 97.2 94 14 114/66 (82) 100 05/08/18 08:00 30 05/08/18 08:00 Mechanical Ventilator 05/08/18 07:51 97 Height (Feet): 6 Height (Inches): 5.00 Weight (Pounds): 169 Objective HEENT: NCAT, DMM, Respiratory/Chest: no respiratory distress, Trached Cardiovascular: normal rate Abdomen: Soft Laboratory Tests Test 05/09/18 03:45 White Blood Count 12.1 K/UL (4.8-10.8) H Red Blood Count 4.00 M/UL (4.70-6.10) L Hemoglobin 11.5 G/DL (14.2-18.0) L Hematocrit 34.5 % (42.0-52.0) L Mean Corpuscular Volume 86 FL (80-99) Mean Corpuscular Hemoglobin 28.7 PG (27.0-31.0) Mean Corpuscular Hemoglobin Concent 33.2 G/DL (32.0-36.0) Red Cell Distribution Width 12.2 % (11.6-14.8) Platelet Count 353 K/UL (150-450) Mean Platelet Volume 6.9 FL (6.5-10.1) Neutrophils (%) (Auto) 68.1 % (45.0-75.0) Lymphocytes (%) (Auto) 20.3 % (20.0-45.0) Monocytes (%) (Auto) 7.4 % (1.0-10.0) Eosinophils (%) (Auto) 3.6 % (0.0-3.0) H Basophils (%) (Auto) 0.7 % (0.0-2.0) Sodium Level 137 MMOL/L (136-145) Potassium Level 4.0 MMOL/L (3.5-5.1) Chloride Level 101 MMOL/L (98-107) Carbon Dioxide Level 28 MMOL/L (21-32) Anion Gap 8 mmol/L (5-15) Blood Urea Nitrogen 12 mg/dL (7-18) Creatinine 1.3 MG/DL (0.55-1.30) Estimat Glomerular Filtration Rate > 60 mL/min (>60) Glucose Level 104 MG/DL (74-106) Calcium Level 8.8 MG/DL (8.5-10.1) Phosphorus Level 3.5 MG/DL (2.5-4.9) Magnesium Level 2.6 MG/DL (1.8-2.4) H Total Bilirubin 0.7 MG/DL (0.2-1.0) Aspartate Amino Transf (AST/SGOT) 12 U/L (15-37) L Alanine Aminotransferase (ALT/SGPT) 14 U/L (12-78) Alkaline Phosphatase 101 U/L (46-116) Total Protein 7.6 G/DL (6.4-8.2) Albumin 2.2 G/DL (3.4-5.0) L Globulin 5.4 g/dL Albumin/Globulin Ratio 0.4 (1.0-2.7) L Current Medications Medications (Trade) Dose Ordered Sig/Shraddha Route PRN Reason Start Time Stop Time Status Last Admin Dose Admin Acetaminophen (Tylenol) 650 mg Q4H PRN ORAL FEVER 04/29/18 17:09 05/29/18 17:08 Albuterol/ Ipratropium (Albuterol/ Ipratropium) 3 ml Q4H PRN HHN Shortness of Breath 05/06/18 10:31 05/11/18 10:30 05/09/18 05:32 Chlorpromazine (Thorazine) 25 mg Q6H PRN ORAL HICCUPS 05/05/18 14:45 06/04/18 14:44 05/08/18 20:01 Dextrose (Dextrose 50%) 25 ml Q30M PRN IV Hypoglycemia 04/29/18 17:15 05/29/18 17:12 Dextrose (Dextrose 50%) 50 ml Q30M PRN IV hypoglycemia 04/29/18 17:15 05/29/18 17:14 Diltiazem HCl (Cardizem) 60 mg EVERY 8 HOURS ORAL 05/08/18 22:00 06/07/18 21:59 05/09/18 05:50 Heparin Sodium (Porcine) (Heparin 5000 units/ml) 5,000 units EVERY 12 HOURS SUBQ 04/29/18 21:00 05/29/18 20:59 05/08/18 21:09 Lidocaine (Xylocaine 1% MPF 5ml) 10 ml Q4H PRN HHN persistent cough 04/30/18 10:15 05/30/18 10:14 05/05/18 14:41 Magnesium Hydroxide (Mom) 30 ml Q8H PRN ORAL Constipation 05/07/18 21:15 06/06/18 21:14 05/09/18 05:50 Methadone HCl (Methadone HCl) 5 mg EVERY 12 HOURS ORAL 05/06/18 21:00 05/13/18 20:59 05/08/18 21:08 Morphine Sulfate (Morphine Sulfate) 4 mg Q4H PRN IVP For Pain 05/07/18 10:45 05/14/18 10:44 05/09/18 04:53 Ondansetron HCl (Zofran) 4 mg Q6H PRN IVP Nausea & Vomiting 04/29/18 17:15 05/29/18 17:14 Piperacillin Sod/ Tazobactam Sod 3.375 gm/Dextrose 110 ml @ 27.5 mls/hr Q8H IVPB 05/02/18 12:00 05/11/18 23:59 05/09/18 03:50 Polyethylene Glycol (Miralax) 17 gm DAILYPRN PRN ORAL Constipation 04/29/18 17:15 05/29/18 17:14 Tobramycin Sulfate (Nebcin) 300 mg Q12HR@10,22 INH 05/07/18 22:00 05/14/18 21:59 05/08/18 21:14 Vince Davlaos MD May 09, 2018 07:47
[2018-05-09 08:54] VITALS: BP 111/73
[2018-05-09] MEDS: Heparin 5000 units/ml inj SUBQ SCH ×2 (08:59→21:47)
[2018-05-09] MEDS: Tobramycin for inhalation INH SCH ×2 (09:37→22:00)
[2018-05-09 12:00] VITALS: BP 126/51
[2018-05-09] MEDS: chlorproMAZINE 25mg tab ORAL PRN (12:21)
--- NOTE | 2018-05-09 12:31 | Pulmonology Progress Note ---
Assessment/Plan Assessment/Plan Assessment/Plan Problems: (1) Acute and chronic respiratory failure (2) Severe sepsis (3) COPD exacerbation (4) Hypertension Assessment/Plan doing better, no overnight events On respiratory treatments myers cultures, sputum has GNB trial of Licocain has been helpful low dose Methadone seems to help titrate vent setting f/u pulse oximeter dvt prophylaxis. wbc is lower today Subjective ROS Limited/Unobtainable: No Constitutional: Reports: no symptoms HEENT: Repors: no symptoms Respiratory: Reports: no symptoms Allergies: Coded Allergies: No Known Allergies (Unverified , 06/17/16) Objective Vital Signs Noted General Appearance: WD/WN HEENT: normocephalic Respiratory/Chest: chest wall non-tender, normal breath sounds Cardiovascular: normal peripheral pulses, normal rate, no JVD Abdomen: no organomegaly Genitourinary: normal external genitalia Extremities: no clubbing Skin: no lesions Laboratory Tests 05/08/18 04:00: White Blood Count 9.4, Red Blood Count 3.86L, Hemoglobin 11.1L, Hematocrit 33.0L , Mean Corpuscular Volume 85, Mean Corpuscular Hemoglobin 28.7, Mean Corpuscular Hemoglobin Concent 33.6, Red Cell Distribution Width 11.8, Platelet Count 356, Mean Platelet Volume 6.9, Neutrophils (%) (Auto) 63.2, Lymphocytes (% ) (Auto) 25.0, Monocytes (%) (Auto) 6.3, Eosinophils (%) (Auto) 4.7H, Basophils (%) (Auto) 0.8, Sodium Level 138, Potassium Level 3.7, Chloride Level 102, Carbon Dioxide Level 29, Anion Gap 7, Blood Urea Nitrogen 11, Creatinine 1.1, Estimat Glomerular Filtration Rate > 60, Glucose Level 87, Calcium Level 8.7, Phosphorus Level 3.1, Magnesium Level 2.5H, Total Bilirubin 0.7, Aspartate Amino Transf (AST/SGOT) 12L, Alanine Aminotransferase (ALT/SGPT) 19, Alkaline Phosphatase 100, Total Protein 7.1, Albumin 2.2L, Globulin 4.9, Albumin/ Globulin Ratio 0.4L Current Medications Medications (Trade) Dose Ordered Sig/Shraddha Route PRN Reason Start Time Stop Time Status Last Admin Dose Admin Acetaminophen (Tylenol) 650 mg Q4H PRN ORAL FEVER 04/29/18 17:09 05/29/18 17:08 Albuterol/ Ipratropium (Albuterol/ Ipratropium) 3 ml Q4H PRN HHN Shortness of Breath 05/06/18 10:31 05/11/18 10:30 05/08/18 08:34 Chlorpromazine (Thorazine) 25 mg Q6H PRN ORAL HICCUPS 05/05/18 14:45 06/04/18 14:44 05/06/18 21:01 Dextrose (Dextrose 50%) 25 ml Q30M PRN IV Hypoglycemia 04/29/18 17:15 05/29/18 17:12 Dextrose (Dextrose 50%) 50 ml Q30M PRN IV hypoglycemia 04/29/18 17:15 05/29/18 17:14 Diltiazem HCl (Cardizem) 30 mg EVERY 6 HOURS ORAL 04/30/18 00:00 05/30/18 00:00 05/08/18 05:42 Heparin Sodium (Porcine) (Heparin 5000 units/ml) 5,000 units EVERY 12 HOURS SUBQ 04/29/18 21:00 05/29/18 20:59 05/08/18 09:00 Lidocaine (Xylocaine 1% MPF 5ml) 10 ml Q4H PRN HHN persistent cough 04/30/18 10:15 05/30/18 10:14 05/05/18 14:41 Magnesium Hydroxide (Mom) 30 ml Q8H PRN ORAL Constipation 05/07/18 21:15 06/06/18 21:14 05/07/18 21:58 Methadone HCl (Methadone HCl) 5 mg EVERY 12 HOURS ORAL 05/06/18 21:00 05/13/18 20:59 05/08/18 08:59 Morphine Sulfate (Morphine Sulfate) 4 mg Q4H PRN IVP For Pain 05/07/18 10:45 05/14/18 10:44 05/07/18 16:28 Ondansetron HCl (Zofran) 4 mg Q6H PRN IVP Nausea & Vomiting 04/29/18 17:15 05/29/18 17:14 Piperacillin Sod/ Tazobactam Sod 3.375 gm/Dextrose 110 ml @ 27.5 mls/hr Q8H IVPB 05/02/18 12:00 11/5/18 23:59 05/08/18 03:39 Polyethylene Glycol (Miralax) 17 gm DAILYPRN PRN ORAL Constipation 04/29/18 17:15 05/29/18 17:14 Tobramycin Sulfate (Nebcin) 300 mg Q12HR@10,22 INH 05/07/18 22:00 05/14/18 21:59 05/07/18 22:50 Subjective ROS Limited/Unobtainable: No Allergies: Coded Allergies: No Known Allergies (Unverified , 06/17/16) Objective Last 24 Hour Vital Signs Date Time Temp Pulse Resp B/P (MAP) Pulse Ox O2 Delivery O2 Flow Rate FiO2 05/09/18 12:00 30 05/09/18 12:00 97.1 99 28 126/51 (76) 100 05/09/18 12:00 Mechanical Ventilator 05/09/18 11:17 97 27 30 05/09/18 09:36 88 22 100 Mechanical Ventilator 30 05/09/18 09:30 30 05/09/18 09:30 Mechanical Ventilator 30 05/09/18 09:30 86 20 100 Mechanical Ventilator 30 05/09/18 09:30 Mechanical Ventilator 30 05/09/18 09:28 84 21 30 05/09/18 08:54 97.5 85 26 111/73 (86) 94 05/09/18 08:00 89 05/09/18 08:00 Mechanical Ventilator 05/09/18 08:00 30 05/09/18 06:59 96 28 30 05/09/18 05:50 110 120/77 05/09/18 05:41 112 27 100 Mechanical Ventilator 30 05/09/18 05:31 109 22 100 Mechanical Ventilator 30 05/09/18 05:31 30 05/09/18 05:29 109 20 30 05/09/18 04:00 97.9 108 21 104/70 (81) 100 05/09/18 04:00 108 05/09/18 04:00 30 05/09/18 04:00 Mechanical Ventilator 05/09/18 02:34 104 18 30 05/09/18 01:27 109 18 30 05/09/18 00:00 Mechanical Ventilator 05/09/18 00:00 30 05/09/18 00:00 111 05/09/18 00:00 98.1 110 21 120/75 (90) 100 05/08/18 23:18 100 18 30 11/2/18 22:00 104 102/50 05/08/18 21:45 100 18 100 Mechanical Ventilator 30 05/08/18 21:16 105 21 100 Mechanical Ventilator 30 05/08/18 21:14 99 22 30 05/08/18 20:00 30 05/08/18 20:00 99 05/08/18 20:00 98.1 107 21 96/77 (83) 100 05/08/18 20:00 Mechanical Ventilator 05/08/18 18:50 107 25 30 05/08/18 17:53 95 104/74 05/08/18 16:45 95 19 30 05/08/18 16:00 97.9 89 18 104/74 (84) 100 05/08/18 16:00 30 05/08/18 16:00 Mechanical Ventilator 05/08/18 15:36 92 05/08/18 14:48 91 20 30 05/08/18 12:50 89 22 30 Intake and Output 05/08/18 05/09/18 18:59 06:59 Intake Total 510.0 ml 432.5 ml Output Total 400 ml 550 ml Balance 110.0 ml -117.5 ml Intake Oral 400 ml 240 ml IV Total 110.0 ml 192.5 ml Output Urine Total 400 ml 550 ml Laboratory Tests 05/09/18 03:45: White Blood Count 12.1H, Red Blood Count 4.00L, Hemoglobin 11.5L, Hematocrit 34.5L, Mean Corpuscular Volume 86, Mean Corpuscular Hemoglobin 28.7, Mean Corpuscular Hemoglobin Concent 33.2, Red Cell Distribution Width 12.2, Platelet Count 353, Mean Platelet Volume 6.9, Neutrophils (%) (Auto) 68.1, Lymphocytes (% ) (Auto) 20.3, Monocytes (%) (Auto) 7.4, Eosinophils (%) (Auto) 3.6H, Basophils (%) (Auto) 0.7, Sodium Level 137, Potassium Level 4.0, Chloride Level 101, Carbon Dioxide Level 28, Anion Gap 8, Blood Urea Nitrogen 12, Creatinine 1.3, Estimat Glomerular Filtration Rate > 60, Glucose Level 104, Calcium Level 8.8, Phosphorus Level 3.5, Magnesium Level 2.6H, Total Bilirubin 0.7, Aspartate Amino Transf (AST/SGOT) 12L, Alanine Aminotransferase (ALT/SGPT) 14, Alkaline Phosphatase 101, Total Protein 7.6, Albumin 2.2L, Globulin 5.4, Albumin/ Globulin Ratio 0.4L Current Medications Medications (Trade) Dose Ordered Sig/Shraddha Route PRN Reason Start Time Stop Time Status Last Admin Dose Admin Acetaminophen (Tylenol) 650 mg Q4H PRN ORAL FEVER 04/29/18 17:09 05/29/18 17:08 Albuterol/ Ipratropium (Albuterol/ Ipratropium) 3 ml Q4H PRN HHN Shortness of Breath 05/06/18 10:31 05/11/18 10:30 05/09/18 09:37 Chlorpromazine (Thorazine) 25 mg Q6H PRN ORAL HICCUPS 05/05/18 14:45 06/04/18 14:44 05/09/18 12:21 Dextrose (Dextrose 50%) 25 ml Q30M PRN IV Hypoglycemia 04/29/18 17:15 05/29/18 17:12 Dextrose (Dextrose 50%) 50 ml Q30M PRN IV hypoglycemia 04/29/18 17:15 05/29/18 17:14 Diltiazem HCl (Cardizem) 60 mg EVERY 8 HOURS ORAL 05/08/18 22:00 06/07/18 21:59 05/09/18 05:50 Heparin Sodium (Porcine) (Heparin 5000 units/ml) 5,000 units EVERY 12 HOURS SUBQ 04/29/18 21:00 05/29/18 20:59 05/09/18 08:59 Lidocaine (Xylocaine 1% MPF 5ml) 10 ml Q4H PRN HHN persistent cough 04/30/18 10:15 05/30/18 10:14 05/05/18 14:41 Magnesium Hydroxide (Mom) 30 ml Q8H PRN ORAL Constipation 05/07/18 21:15 06/06/18 21:14 05/09/18 05:50 Methadone HCl (Methadone HCl) 5 mg EVERY 12 HOURS ORAL 05/06/18 21:00 05/13/18 20:59 05/09/18 08:57 Morphine Sulfate (Morphine Sulfate) 4 mg Q4H PRN IVP For Pain 05/07/18 10:45 05/14/18 10:44 05/09/18 10:43 Ondansetron HCl (Zofran) 4 mg Q6H PRN IVP Nausea & Vomiting 04/29/18 17:15 05/29/18 17:14 Piperacillin Sod/ Tazobactam Sod 3.375 gm/Dextrose 110 ml @ 27.5 mls/hr Q8H IVPB 05/02/18 12:00 05/11/18 23:59 05/09/18 12:21 Polyethylene Glycol (Miralax) 17 gm DAILYPRN PRN ORAL Constipation 04/29/18 17:15 05/29/18 17:14 Tobramycin Sulfate (Nebcin) 300 mg Q12HR@10,22 INH 05/07/18 22:00 05/14/18 21:59 05/08/18 21:14 Vince Rodriguez MD May 09, 2018 12:31
[2018-05-09] MEDS ORDERED: NS 275ml ONE (13:19)
--- NOTE | 2018-05-09 15:28 | Cardiology Progress Note ---
Assessment/Plan Assessment/Plan 1. Dyspnea, due to acute exacerbation of COPD, normal LVEF. 2. Sinus tachycardia, continue current diltiazem dose. 3. History of diabetes mellitus, will consider aspirin and statin. 4. Ventilatory-drive respiratory failure, status post tracheostomy tube placement. 5. History of DVT. Subjective Subjective Sinus rhythm at 99. Objective Last 24 Hour Vital Signs Date Time Temp Pulse Resp B/P (MAP) Pulse Ox O2 Delivery O2 Flow Rate FiO2 05/09/18 14:14 99 126/51 05/09/18 12:00 30 05/09/18 12:00 97.1 99 28 126/51 (76) 100 05/09/18 12:00 Mechanical Ventilator 05/09/18 11:58 98 05/09/18 11:17 97 27 30 05/09/18 09:36 88 22 100 Mechanical Ventilator 30 05/09/18 09:30 30 05/09/18 09:30 Mechanical Ventilator 30 05/09/18 09:30 86 20 100 Mechanical Ventilator 30 05/09/18 09:30 Mechanical Ventilator 30 05/09/18 09:28 84 21 30 05/09/18 08:54 97.5 85 26 111/73 (86) 94 05/09/18 08:00 89 05/09/18 08:00 Mechanical Ventilator 05/09/18 08:00 30 05/09/18 06:59 96 28 30 05/09/18 05:50 110 120/77 05/09/18 05:41 112 27 100 Mechanical Ventilator 30 05/09/18 05:31 109 22 100 Mechanical Ventilator 30 05/09/18 05:31 30 05/09/18 05:29 109 20 30 05/09/18 04:00 97.9 108 21 104/70 (81) 100 05/09/18 04:00 108 05/09/18 04:00 30 05/09/18 04:00 Mechanical Ventilator 05/09/18 02:34 104 18 30 05/09/18 01:27 109 18 30 05/09/18 00:00 Mechanical Ventilator 05/09/18 00:00 30 05/09/18 00:00 111 05/09/18 00:00 98.1 110 21 120/75 (90) 100 05/08/18 23:18 100 18 30 05/08/18 22:00 104 102/50 05/08/18 21:45 100 18 100 Mechanical Ventilator 30 05/08/18 21:16 105 21 100 Mechanical Ventilator 30 05/08/18 21:14 99 22 30 05/08/18 20:00 30 05/08/18 20:00 99 05/08/18 20:00 98.1 107 21 96/77 (83) 100 05/08/18 20:00 Mechanical Ventilator 05/08/18 18:50 107 25 30 05/08/18 17:53 95 104/74 05/08/18 16:45 95 19 30 05/08/18 16:00 97.9 89 18 104/74 (84) 100 05/08/18 16:00 30 05/08/18 16:00 Mechanical Ventilator 05/08/18 15:36 92 Intake and Output 05/08/18 05/09/18 18:59 06:59 Intake Total 510.0 ml 432.5 ml Output Total 400 ml 550 ml Balance 110.0 ml -117.5 ml Intake Oral 400 ml 240 ml IV Total 110.0 ml 192.5 ml Output Urine Total 400 ml 550 ml Laboratory Tests Test 05/09/18 03:45 White Blood Count 12.1 K/UL (4.8-10.8) H Red Blood Count 4.00 M/UL (4.70-6.10) L Hemoglobin 11.5 G/DL (14.2-18.0) L Hematocrit 34.5 % (42.0-52.0) L Mean Corpuscular Volume 86 FL (80-99) Mean Corpuscular Hemoglobin 28.7 PG (27.0-31.0) Mean Corpuscular Hemoglobin Concent 33.2 G/DL (32.0-36.0) Red Cell Distribution Width 12.2 % (11.6-14.8) Platelet Count 353 K/UL (150-450) Mean Platelet Volume 6.9 FL (6.5-10.1) Neutrophils (%) (Auto) 68.1 % (45.0-75.0) Lymphocytes (%) (Auto) 20.3 % (20.0-45.0) Monocytes (%) (Auto) 7.4 % (1.0-10.0) Eosinophils (%) (Auto) 3.6 % (0.0-3.0) H Basophils (%) (Auto) 0.7 % (0.0-2.0) Sodium Level 137 MMOL/L (136-145) Potassium Level 4.0 MMOL/L (3.5-5.1) Chloride Level 101 MMOL/L (98-107) Carbon Dioxide Level 28 MMOL/L (21-32) Anion Gap 8 mmol/L (5-15) Blood Urea Nitrogen 12 mg/dL (7-18) Creatinine 1.3 MG/DL (0.55-1.30) Estimat Glomerular Filtration Rate > 60 mL/min (>60) Glucose Level 104 MG/DL (74-106) Calcium Level 8.8 MG/DL (8.5-10.1) Phosphorus Level 3.5 MG/DL (2.5-4.9) Magnesium Level 2.6 MG/DL (1.8-2.4) H Total Bilirubin 0.7 MG/DL (0.2-1.0) Aspartate Amino Transf (AST/SGOT) 12 U/L (15-37) L Alanine Aminotransferase (ALT/SGPT) 14 U/L (12-78) Alkaline Phosphatase 101 U/L (46-116) Total Protein 7.6 G/DL (6.4-8.2) Albumin 2.2 G/DL (3.4-5.0) L Globulin 5.4 g/dL Albumin/Globulin Ratio 0.4 (1.0-2.7) L Objective HEENT: Atraumatic and normocephalic. Anicteric. Pupils are equal, round, and reactive to light and accommodation. Conjunctival pallor. NECK: Presence of a tracheostomy tube. No carotid bruit. Carotid upstrokes 2+ bilaterally. CVS: Normal S1, S2. Regular. No murmurs, gallops, or rubs. LUNGS: Expiratory wheezing throughout both lungs. Diminished breath sounds throughout. ABDOMEN: Soft, nontender, and nondistended. No hepatosplenomegaly. Positive bowel sounds. EXTREMITIES: No evidence of edema, clubbing, or cyanosis. Jose Pandya MD May 09, 2018 15:27
[2018-05-09 16:00] VITALS: BP 122/64
[2018-05-09 20:00] VITALS: BP 113/74
[2018-05-10] VITALS: BP 94/60
[2018-05-10 04:00] VITALS: BP 128/81
[2018-05-10] MEDS: Piperacillin/Tazobactam 3.375 GM in D5W 110 ML IVPB SCH ×3 (04:32→19:39)
[2018-05-10] MEDS: Morphine Sulfate 4mg/ml Inj (IV/IM USE ONLY) IVP PRN ×3 (04:33→16:44)
[2018-05-10 04:53] LABS: BASOPHILS % (AUTO) 0.7 % (0.0-2.0); EOSINOPHILS % (AUTO) 1.1 % (0.0-3.0); HEMATOCRIT 33.2 % (42.0-52.0); HEMOGLOBIN 11.1 G/DL (14.2-18.0); LYMPHOCYTES % (AUTO) 8.3 % (20.0-45.0); MEAN CORPUSCULAR VOLUME 86 FL (80-99); MONOCYTES % (AUTO) 9.3 % (1.0-10.0); NEUTROPHILS % (AUTO) 80.5 % (45.0-75.0); PLATELET COUNT 326 K/UL (150-450); RED BLOOD COUNT 3.86 M/UL (4.70-6.10); RED CELL DISTRIBUTION WIDTH 12.1 % (11.6-14.8); WHITE BLOOD COUNT 17.5 K/UL (4.8-10.8)
[2018-05-10] MEDS: Albuterol/Ipratropium 3ml neb HHN PRN ×2 (04:54→15:12)
[2018-05-10 05:13] LABS: ANION GAP 9 mmol/L (5-15); BLOOD UREA NITROGEN 11 mg/dL (7-18); CALCIUM 8.8 MG/DL (8.5-10.1); CARBON DIOXIDE 24 MMOL/L (21-32); CHLORIDE 101 MMOL/L (98-107); CREATININE 1.2 MG/DL (0.55-1.30); POTASSIUM 4.3 MMOL/L (3.5-5.1); SODIUM 134 MMOL/L (136-145)
[2018-05-10] MEDS: dilTIAZem HCl 60mg tab ORAL SCH ×3 (06:07→22:33)
[2018-05-10 08:00] VITALS: BP 116/65
--- NOTE | 2018-05-10 08:30 | General Progress Note ---
Assessment/Plan Problem List: (1) Acute respiratory failure ICD Codes: J96.00 - Acute respiratory failure, unspecified whether with hypoxia or hypercapnia SNOMED: 72224792 (2) UTI (urinary tract infection) due to Enterococcus ICD Codes: N39.0 - Urinary tract infection, site not specified; B95.2 - Enterococcus as the cause of diseases classified elsewhere SNOMED: 721988037763036 (3) COPD exacerbation ICD Codes: J44.1 - Chronic obstructive pulmonary disease with (acute) exacerbation SNOMED: 564607992, 119535276 (4) Sepsis ICD Codes: A41.9 - Sepsis, unspecified organism SNOMED: 01128555 (5) Acute renal failure (ARF) ICD Codes: N17.9 - Acute kidney failure, unspecified SNOMED: 73858804 (6) Fever ICD Codes: R50.9 - Fever, unspecified SNOMED: 306228610 Status: stable, progressing Assessment/Plan vent abx gi f/u cbc bmp am dc if clear Subjective Constitutional: Reports: weakness Allergies: Coded Allergies: No Known Allergies (Unverified , 06/17/16) All Systems: reviewed and negative except above Subjective trach vent sleepy Objective Last 24 Hour Vital Signs Date Time Temp Pulse Resp B/P (MAP) Pulse Ox O2 Delivery O2 Flow Rate FiO2 05/10/18 07:15 102 25 30 05/10/18 06:07 112 128/81 05/10/18 05:03 112 16 100 Mechanical Ventilator 30 05/10/18 04:54 110 23 100 Mechanical Ventilator 30 05/10/18 04:47 114 23 30 05/10/18 04:00 Mechanical Ventilator 05/10/18 04:00 30 05/10/18 04:00 91 05/10/18 04:00 98.1 91 22 128/81 (97) 97 05/10/18 03:15 94 18 30 05/10/18 01:15 85 20 30 05/10/18 00:00 30 05/10/18 00:00 89 05/10/18 00:00 Mechanical Ventilator 05/10/18 00:00 97.5 90 20 94/60 (71) 100 05/09/18 22:59 91 22 30 05/09/18 22:11 111 19 100 Mechanical Ventilator 30 05/09/18 22:08 Mechanical Ventilator 30 05/09/18 22:00 112 19 100 Mechanical Ventilator 30 05/09/18 21:49 110 113/74 05/09/18 21:16 110 25 30 05/09/18 20:09 111 23 30 05/09/18 20:00 98.2 110 24 113/74 (87) 100 05/09/18 20:00 Mechanical Ventilator 05/09/18 20:00 30 05/09/18 20:00 103 05/09/18 16:55 101 18 30 05/09/18 16:00 98.2 98 24 122/64 (83) 97 05/09/18 16:00 94 05/09/18 16:00 30 05/09/18 16:00 Mechanical Ventilator 05/09/18 15:42 98 19 Mechanical Ventilator 30 05/09/18 15:21 96 19 30 05/09/18 14:14 99 126/51 05/09/18 13:22 93 22 30 05/09/18 12:00 30 05/09/18 12:00 97.1 99 28 126/51 (76) 100 05/09/18 12:00 Mechanical Ventilator 05/09/18 11:58 98 05/09/18 11:17 97 27 30 05/09/18 09:36 88 22 100 Mechanical Ventilator 30 05/09/18 09:30 30 05/09/18 09:30 Mechanical Ventilator 30 05/09/18 09:30 86 20 100 Mechanical Ventilator 30 05/09/18 09:30 Mechanical Ventilator 30 05/09/18 09:28 84 21 30 05/09/18 08:54 97.5 85 26 111/73 (86) 94 Intake and Output 05/09/18 05/10/18 19:00 07:00 Intake Total 737.5 ml 677.6 ml Output Total 800 ml 700 ml Balance -62.5 ml -22.4 ml Intake Oral 600 ml 500 ml IV Total 137.5 ml 177.6 ml Output Urine Total 800 ml 700 ml Laboratory Tests 05/10/18 03:45: White Blood Count 17.5H, Red Blood Count 3.86L, Hemoglobin 11.1L, Hematocrit 33.2L, Mean Corpuscular Volume 86, Mean Corpuscular Hemoglobin 28.7, Mean Corpuscular Hemoglobin Concent 33.4, Red Cell Distribution Width 12.1, Platelet Count 326, Mean Platelet Volume 6.9, Neutrophils (%) (Auto) 80.5H, Lymphocytes ( %) (Auto) 8.3L, Monocytes (%) (Auto) 9.3, Eosinophils (%) (Auto) 1.1, Basophils (%) (Auto) 0.7, Sodium Level 134L, Potassium Level 4.3, Chloride Level 101, Carbon Dioxide Level 24, Anion Gap 9, Blood Urea Nitrogen 11, Creatinine 1.2, Estimat Glomerular Filtration Rate > 60, Glucose Level 92, Calcium Level 8.8 Height (Feet): 6 Height (Inches): 5.00 Weight (Pounds): 169 General Appearance: lethargic EENT: normal ENT inspection Neck: normal alignment Cardiovascular: normal peripheral pulses, normal rate, regular rhythm Respiratory/Chest: chest wall non-tender, lungs clear, normal breath sounds Abdomen: normal bowel sounds, non tender, soft Extremities: normal inspection Edema: no edema noted Arm (L), no edema noted Arm (R), no edema noted Leg (L), no edema noted Leg (R), no edema noted Pedal (L), no edema noted Pedal (R), no edema noted Generalized Neurologic: motor weakness Skin: normal pigmentation, warm/dry Elan Petersen DO May 10, 2018 08:30
[2018-05-10] MEDS ORDERED: NS 275ml ONE (09:22)
[2018-05-10] MEDS: Heparin 5000 units/ml inj SUBQ SCH ×2 (09:28→21:46)
--- NOTE | 2018-05-10 09:37 | Pulmonology Progress Note ---
Assessment/Plan Assessment/Plan Assessment/Plan Problems: (1) Acute and chronic respiratory failure (2) Severe sepsis (3) COPD exacerbation (4) Hypertension Assessment/Plan doing better, no overnight events On respiratory treatments myers cultures, sputum has GNB trial of Licocain has been helpful low dose Methadone seems to help titrate vent setting f/u pulse oximeter dvt prophylaxis. wbc is lower today Subjective ROS Limited/Unobtainable: No Constitutional: Reports: no symptoms HEENT: Repors: no symptoms Respiratory: Reports: no symptoms Allergies: Coded Allergies: No Known Allergies (Unverified , 06/17/16) Objective Vital Signs Noted General Appearance: WD/WN HEENT: normocephalic Respiratory/Chest: chest wall non-tender, normal breath sounds Cardiovascular: normal peripheral pulses, normal rate, no JVD Abdomen: no organomegaly Genitourinary: normal external genitalia Extremities: no clubbing Skin: no lesions Laboratory Tests 05/08/18 04:00: White Blood Count 9.4, Red Blood Count 3.86L, Hemoglobin 11.1L, Hematocrit 33.0L , Mean Corpuscular Volume 85, Mean Corpuscular Hemoglobin 28.7, Mean Corpuscular Hemoglobin Concent 33.6, Red Cell Distribution Width 11.8, Platelet Count 356, Mean Platelet Volume 6.9, Neutrophils (%) (Auto) 63.2, Lymphocytes (% ) (Auto) 25.0, Monocytes (%) (Auto) 6.3, Eosinophils (%) (Auto) 4.7H, Basophils (%) (Auto) 0.8, Sodium Level 138, Potassium Level 3.7, Chloride Level 102, Carbon Dioxide Level 29, Anion Gap 7, Blood Urea Nitrogen 11, Creatinine 1.1, Estimat Glomerular Filtration Rate > 60, Glucose Level 87, Calcium Level 8.7, Phosphorus Level 3.1, Magnesium Level 2.5H, Total Bilirubin 0.7, Aspartate Amino Transf (AST/SGOT) 12L, Alanine Aminotransferase (ALT/SGPT) 19, Alkaline Phosphatase 100, Total Protein 7.1, Albumin 2.2L, Globulin 4.9, Albumin/ Globulin Ratio 0.4L Current Medications Medications (Trade) Dose Ordered Sig/Shraddha Route PRN Reason Start Time Stop Time Status Last Admin Dose Admin Acetaminophen (Tylenol) 650 mg Q4H PRN ORAL FEVER 04/29/18 17:09 05/29/18 17:08 Albuterol/ Ipratropium (Albuterol/ Ipratropium) 3 ml Q4H PRN HHN Shortness of Breath 05/06/18 10:31 05/11/18 10:30 05/08/18 08:34 Chlorpromazine (Thorazine) 25 mg Q6H PRN ORAL HICCUPS 05/05/18 14:45 06/04/18 14:44 05/06/18 21:01 Dextrose (Dextrose 50%) 25 ml Q30M PRN IV Hypoglycemia 04/29/18 17:15 05/29/18 17:12 Dextrose (Dextrose 50%) 50 ml Q30M PRN IV hypoglycemia 04/29/18 17:15 05/29/18 17:14 Diltiazem HCl (Cardizem) 30 mg EVERY 6 HOURS ORAL 04/30/18 00:00 05/30/18 00:00 05/08/18 05:42 Heparin Sodium (Porcine) (Heparin 5000 units/ml) 5,000 units EVERY 12 HOURS SUBQ 04/29/18 21:00 05/29/18 20:59 05/08/18 09:00 Lidocaine (Xylocaine 1% MPF 5ml) 10 ml Q4H PRN HHN persistent cough 04/30/18 10:15 05/30/18 10:14 05/05/18 14:41 Magnesium Hydroxide (Mom) 30 ml Q8H PRN ORAL Constipation 05/07/18 21:15 06/06/18 21:14 05/07/18 21:58 Methadone HCl (Methadone HCl) 5 mg EVERY 12 HOURS ORAL 05/06/18 21:00 05/13/18 20:59 05/08/18 08:59 Morphine Sulfate (Morphine Sulfate) 4 mg Q4H PRN IVP For Pain 05/07/18 10:45 05/14/18 10:44 05/07/18 16:28 Ondansetron HCl (Zofran) 4 mg Q6H PRN IVP Nausea & Vomiting 04/29/18 17:15 05/29/18 17:14 Piperacillin Sod/ Tazobactam Sod 3.375 gm/Dextrose 110 ml @ 27.5 mls/hr Q8H IVPB 05/02/18 12:00 11/5/18 23:59 05/08/18 03:39 Polyethylene Glycol (Miralax) 17 gm DAILYPRN PRN ORAL Constipation 04/29/18 17:15 05/29/18 17:14 Tobramycin Sulfate (Nebcin) 300 mg Q12HR@10,22 INH 05/07/18 22:00 05/14/18 21:59 05/07/18 22:50 Subjective ROS Limited/Unobtainable: Yes Allergies: Coded Allergies: No Known Allergies (Unverified , 06/17/16) Objective Last 24 Hour Vital Signs Date Time Temp Pulse Resp B/P (MAP) Pulse Ox O2 Delivery O2 Flow Rate FiO2 05/10/18 09:06 88 25 30 05/10/18 08:00 90 05/10/18 07:15 102 25 30 05/10/18 06:07 112 128/81 05/10/18 05:03 112 16 100 Mechanical Ventilator 30 05/10/18 04:54 110 23 100 Mechanical Ventilator 30 05/10/18 04:47 114 23 30 05/10/18 04:00 Mechanical Ventilator 05/10/18 04:00 30 05/10/18 04:00 91 05/10/18 04:00 98.1 91 22 128/81 (97) 97 05/10/18 03:15 94 18 30 05/10/18 01:15 85 20 30 05/10/18 00:00 30 05/10/18 00:00 89 05/10/18 00:00 Mechanical Ventilator 05/10/18 00:00 97.5 90 20 94/60 (71) 100 05/09/18 22:59 91 22 30 05/09/18 22:11 111 19 100 Mechanical Ventilator 30 05/09/18 22:08 Mechanical Ventilator 30 05/09/18 22:00 112 19 100 Mechanical Ventilator 30 05/09/18 21:49 110 113/74 05/09/18 21:16 110 25 30 05/09/18 20:09 111 23 30 05/09/18 20:00 98.2 110 24 113/74 (87) 100 05/09/18 20:00 Mechanical Ventilator 05/09/18 20:00 30 05/09/18 20:00 103 05/09/18 16:55 101 18 30 05/09/18 16:00 98.2 98 24 122/64 (83) 97 05/09/18 16:00 94 05/09/18 16:00 30 05/09/18 16:00 Mechanical Ventilator 05/09/18 15:42 98 19 Mechanical Ventilator 30 05/09/18 15:21 96 19 30 05/09/18 14:14 99 126/51 05/09/18 13:22 93 22 30 05/09/18 12:00 30 05/09/18 12:00 97.1 99 28 126/51 (76) 100 05/09/18 12:00 Mechanical Ventilator 05/09/18 11:58 98 05/09/18 11:17 97 27 30 Intake and Output 05/09/18 05/10/18 18:59 06:59 Intake Total 737.5 ml 650.1 ml Output Total 800 ml 700 ml Balance -62.5 ml -49.9 ml Intake Oral 600 ml 500 ml IV Total 137.5 ml 150.1 ml Output Urine Total 800 ml 700 ml Laboratory Tests 05/10/18 03:45: White Blood Count 17.5H, Red Blood Count 3.86L, Hemoglobin 11.1L, Hematocrit 33.2L, Mean Corpuscular Volume 86, Mean Corpuscular Hemoglobin 28.7, Mean Corpuscular Hemoglobin Concent 33.4, Red Cell Distribution Width 12.1, Platelet Count 326, Mean Platelet Volume 6.9, Neutrophils (%) (Auto) 80.5H, Lymphocytes ( %) (Auto) 8.3L, Monocytes (%) (Auto) 9.3, Eosinophils (%) (Auto) 1.1, Basophils (%) (Auto) 0.7, Sodium Level 134L, Potassium Level 4.3, Chloride Level 101, Carbon Dioxide Level 24, Anion Gap 9, Blood Urea Nitrogen 11, Creatinine 1.2, Estimat Glomerular Filtration Rate > 60, Glucose Level 92, Calcium Level 8.8 Current Medications Medications (Trade) Dose Ordered Sig/Shraddha Route PRN Reason Start Time Stop Time Status Last Admin Dose Admin Acetaminophen (Tylenol) 650 mg Q4H PRN ORAL FEVER 04/29/18 17:09 05/29/18 17:08 Albuterol/ Ipratropium (Albuterol/ Ipratropium) 3 ml Q4H PRN HHN Shortness of Breath 05/06/18 10:31 05/11/18 10:30 05/10/18 04:54 Chlorpromazine (Thorazine) 25 mg Q6H PRN ORAL HICCUPS 05/05/18 14:45 06/04/18 14:44 05/09/18 12:21 Dextrose (Dextrose 50%) 25 ml Q30M PRN IV Hypoglycemia 04/29/18 17:15 05/29/18 17:12 Dextrose (Dextrose 50%) 50 ml Q30M PRN IV hypoglycemia 04/29/18 17:15 05/29/18 17:14 Diltiazem HCl (Cardizem) 60 mg EVERY 8 HOURS ORAL 05/08/18 22:00 06/07/18 21:59 05/10/18 06:07 Heparin Sodium (Porcine) (Heparin 5000 units/ml) 5,000 units EVERY 12 HOURS SUBQ 04/29/18 21:00 05/29/18 20:59 05/10/18 09:28 Lidocaine (Xylocaine 1% MPF 5ml) 10 ml Q4H PRN HHN persistent cough 04/30/18 10:15 05/30/18 10:14 05/05/18 14:41 Magnesium Hydroxide (Mom) 30 ml Q8H PRN ORAL Constipation 05/07/18 21:15 06/06/18 21:14 05/09/18 05:50 Methadone HCl (Methadone HCl) 5 mg EVERY 12 HOURS ORAL 05/06/18 21:00 05/13/18 20:59 05/10/18 09:23 Morphine Sulfate (Morphine Sulfate) 4 mg Q4H PRN IVP For Pain 05/07/18 10:45 05/14/18 10:44 05/10/18 09:25 Ondansetron HCl (Zofran) 4 mg Q6H PRN IVP Nausea & Vomiting 04/29/18 17:15 05/29/18 17:14 Piperacillin Sod/ Tazobactam Sod 3.375 gm/Dextrose 110 ml @ 27.5 mls/hr Q8H IVPB 05/02/18 12:00 05/11/18 23:59 05/10/18 04:32 Polyethylene Glycol (Miralax) 17 gm DAILYPRN PRN ORAL Constipation 04/29/18 17:15 05/29/18 17:14 Tobramycin Sulfate (Nebcin) 300 mg Q12HR@10,22 INH 05/07/18 22:00 05/14/18 21:59 05/08/18 21:14 Vince Rodriguez MD May 10, 2018 09:37
[2018-05-10] MEDS: Tobramycin for inhalation INH SCH ×2 (10:19→22:24)
[2018-05-10 12:00] VITALS: BP 109/74
[2018-05-10 16:00] VITALS: BP 119/78
[2018-05-10] MEDS: chlorproMAZINE 25mg tab ORAL PRN (17:14)
[2018-05-10 20:00] VITALS: BP 102/73
[2018-05-11] VITALS: BP 95/60
[2018-05-11] MEDS: Albuterol/Ipratropium 3ml neb HHN PRN (02:41)
[2018-05-11] MEDS: Morphine Sulfate 4mg/ml Inj (IV/IM USE ONLY) IVP PRN ×3 (02:44→18:06)
[2018-05-11] MEDS: Piperacillin/Tazobactam 3.375 GM in D5W 110 ML IVPB SCH ×2 (03:43→13:00)
[2018-05-11 04:00] VITALS: BP 125/65
[2018-05-11 04:49] LABS: BASOPHILS % (AUTO) 1.1 % (0.0-2.0); EOSINOPHILS % (AUTO) 2.9 % (0.0-3.0); HEMATOCRIT 27.6 % (42.0-52.0); HEMOGLOBIN 9.8 G/DL (14.2-18.0); LYMPHOCYTES % (AUTO) 19.8 % (20.0-45.0); MEAN CORPUSCULAR VOLUME 85 FL (80-99); MONOCYTES % (AUTO) 11.9 % (1.0-10.0); NEUTROPHILS % (AUTO) 64.4 % (45.0-75.0); PLATELET COUNT 313 K/UL (150-450); RED BLOOD COUNT 3.25 M/UL (4.70-6.10); WHITE BLOOD COUNT 10.7 K/UL (4.8-10.8)
[2018-05-11 04:55] LABS: ANION GAP 9 mmol/L (5-15); BLOOD UREA NITROGEN 9 mg/dL (7-18); CALCIUM 8.4 MG/DL (8.5-10.1); CARBON DIOXIDE 22 MMOL/L (21-32); CHLORIDE 101 MMOL/L (98-107); CREATININE 1.2 MG/DL (0.55-1.30); SODIUM 132 MMOL/L (136-145)
[2018-05-11] MEDS: Milk of Magnesia 30ml Ud ORAL PRN (05:42)
[2018-05-11] MEDS: dilTIAZem HCl 60mg tab ORAL SCH ×2 (05:42→14:36)
[2018-05-11 08:00] VITALS: BP 134/79
[2018-05-11] MEDS: Heparin 5000 units/ml inj SUBQ SCH (08:05)
--- NOTE | 2018-05-11 09:43 | Infectious Diseases Prog Note ---
Assessment/Plan Assessment/Plan ASSESSMENT: The patient is a 67-year-old male with, Fever, Sp Leukocytosis, Sp probable UIT : UCx: P mirabilis Probable HAPn (despite of negative chestx-ray) Scx: PSA and ( sterp GrpG and diphtheroids: colonizer ) , Scx: MDR PSA (S: Gent and Amik) Probable sepsis hx of Pneumonia MDR Pseudomonas/MRSA History of coag-negative staph and Acinetobacter bacteremia (December 2017) History of diabetes. Hypertension. Asthma History of colon cancer, status post hemicolectomy Right lower extremity DVT Pulmonary nodules PLAN: -continue the patient on Zoysn d# 04/15-14 , Tobra INH d# 05/02 Sp vancomycin and meropenem day #4 -Monitor CBC -Monitor BMP -Monitor chest x-ray -Continue respiratory support Subjective Allergies: Coded Allergies: No Known Allergies (Unverified , 06/17/16) Subjective no new complain afebrile Objective Vital Signs Last 24 Hour Vital Signs Date Time Temp Pulse Resp B/P (MAP) Pulse Ox O2 Delivery O2 Flow Rate FiO2 05/11/18 08:41 81 21 30 05/11/18 08:00 30 05/11/18 08:00 Mechanical Ventilator 05/11/18 08:00 98.0 85 20 134/79 (97) 100 05/11/18 06:42 92 22 30 05/11/18 05:42 110 118/80 05/11/18 04:56 104 21 30 05/11/18 04:00 30 05/11/18 04:00 Mechanical Ventilator 05/11/18 04:00 108 05/11/18 04:00 97.6 108 22 125/65 (85) 100 05/11/18 03:02 98 17 100 Mechanical Ventilator 30 05/11/18 02:41 97 22 100 Mechanical Ventilator 30 05/11/18 02:33 96 18 30 05/11/18 01:27 91 20 30 05/11/18 00:00 97.8 105 22 95/60 (72) 100 05/11/18 00:00 101 05/11/18 00:00 Mechanical Ventilator 05/10/18 22:59 88 20 30 05/10/18 22:57 95 20 100 Mechanical Ventilator 30 05/10/18 22:33 87 115/70 05/10/18 22:24 89 18 99 Mechanical Ventilator 30 05/10/18 21:01 86 18 30 05/10/18 20:00 97 05/10/18 20:00 30 05/10/18 20:00 97.9 97 22 102/73 (83) 100 05/10/18 20:00 Mechanical Ventilator 05/10/18 19:02 84 18 30 05/10/18 17:12 89 23 30 05/10/18 16:00 97.5 102 22 119/78 (92) 100 05/10/18 16:00 30 05/10/18 16:00 Mechanical Ventilator 05/10/18 16:00 93 05/10/18 15:13 99 22 100 Mechanical Ventilator 30 05/10/18 14:48 104 25 30 05/10/18 14:01 98 122/72 05/10/18 13:05 93 20 30 05/10/18 12:23 102 16 99 Mechanical Ventilator 30 05/10/18 12:00 90 05/10/18 12:00 30 05/10/18 12:00 97.5 81 18 109/74 (86) 100 05/10/18 12:00 Mechanical Ventilator 05/10/18 10:44 83 24 30 05/10/18 10:42 102 20 100 Mechanical Ventilator 30 05/10/18 10:19 98 22 100 Mechanical Ventilator 30 Height (Feet): 6 Height (Inches): 5.00 Weight (Pounds): 169 HEENT: atraumatic Respiratory/Chest: no respiratory distress Cardiovascular: regularly irregular Abdomen: no organomegaly Laboratory Tests Test 05/11/18 03:32 White Blood Count 10.7 K/UL (4.8-10.8) Red Blood Count 3.25 M/UL (4.70-6.10) L Hemoglobin 9.8 G/DL (14.2-18.0) L Hematocrit 27.6 % (42.0-52.0) L Mean Corpuscular Volume 85 FL (80-99) Mean Corpuscular Hemoglobin 30.3 PG (27.0-31.0) Mean Corpuscular Hemoglobin Concent 35.6 G/DL (32.0-36.0) Red Cell Distribution Width 12.0 % (11.6-14.8) Platelet Count 313 K/UL (150-450) Mean Platelet Volume 6.8 FL (6.5-10.1) Neutrophils (%) (Auto) 64.4 % (45.0-75.0) Lymphocytes (%) (Auto) 19.8 % (20.0-45.0) L Monocytes (%) (Auto) 11.9 % (1.0-10.0) H Eosinophils (%) (Auto) 2.9 % (0.0-3.0) Basophils (%) (Auto) 1.1 % (0.0-2.0) Sodium Level 132 MMOL/L (136-145) L Potassium Level 4.0 MMOL/L (3.5-5.1) Chloride Level 101 MMOL/L (98-107) Carbon Dioxide Level 22 MMOL/L (21-32) Anion Gap 9 mmol/L (5-15) Blood Urea Nitrogen 9 mg/dL (7-18) Creatinine 1.2 MG/DL (0.55-1.30) Estimat Glomerular Filtration Rate > 60 mL/min (>60) Glucose Level 102 MG/DL (74-106) Calcium Level 8.4 MG/DL (8.5-10.1) L Current Medications Medications (Trade) Dose Ordered Sig/Shraddha Route PRN Reason Start Time Stop Time Status Last Admin Dose Admin Acetaminophen (Tylenol) 650 mg Q4H PRN ORAL FEVER 04/29/18 17:09 05/29/18 17:08 Albuterol/ Ipratropium (Albuterol/ Ipratropium) 3 ml Q4H PRN HHN Shortness of Breath 05/06/18 10:31 05/11/18 10:30 05/11/18 02:41 Chlorpromazine (Thorazine) 25 mg Q6H PRN ORAL HICCUPS 05/05/18 14:45 06/04/18 14:44 05/10/18 17:14 Dextrose (Dextrose 50%) 25 ml Q30M PRN IV Hypoglycemia 04/29/18 17:15 05/29/18 17:12 Dextrose (Dextrose 50%) 50 ml Q30M PRN IV hypoglycemia 04/29/18 17:15 05/29/18 17:14 Diltiazem HCl (Cardizem) 60 mg EVERY 8 HOURS ORAL 05/08/18 22:00 06/07/18 21:59 05/11/18 05:42 Heparin Sodium (Porcine) (Heparin 5000 units/ml) 5,000 units EVERY 12 HOURS SUBQ 04/29/18 21:00 05/29/18 20:59 05/11/18 08:05 Lidocaine (Xylocaine 1% MPF 5ml) 10 ml Q4H PRN HHN persistent cough 04/30/18 10:15 05/30/18 10:14 05/05/18 14:41 Magnesium Hydroxide (Mom) 30 ml Q8H PRN ORAL Constipation 05/07/18 21:15 06/06/18 21:14 05/11/18 05:42 Methadone HCl (Methadone HCl) 5 mg EVERY 12 HOURS ORAL 05/06/18 21:00 05/13/18 20:59 05/11/18 08:03 Morphine Sulfate (Morphine Sulfate) 4 mg Q4H PRN IVP For Pain 05/07/18 10:45 05/14/18 10:44 05/11/18 02:44 Ondansetron HCl (Zofran) 4 mg Q6H PRN IVP Nausea & Vomiting 04/29/18 17:15 05/29/18 17:14 Piperacillin Sod/ Tazobactam Sod 3.375 gm/Dextrose 110 ml @ 27.5 mls/hr Q8H IVPB 05/02/18 12:00 05/11/18 23:59 05/11/18 03:43 Polyethylene Glycol (Miralax) 17 gm DAILYPRN PRN ORAL Constipation 04/29/18 17:15 05/29/18 17:14 Tobramycin Sulfate (Nebcin) 300 mg Q12HR@10,22 INH 05/07/18 22:00 05/14/18 21:59 05/10/18 22:24 Anibal Trujillo MD May 11, 2018 09:43
[2018-05-11] MEDS: Tobramycin for inhalation INH SCH (09:55)
[2018-05-11] MEDS: chlorproMAZINE 25mg tab ORAL PRN (10:43)
--- NOTE | 2018-05-11 10:52 | Pulmonology Progress Note ---
Assessment/Plan Problems: (1) Acute and chronic respiratory failure (2) Severe sepsis (3) COPD exacerbation (4) Hypertension Assessment/Plan doing better repeat cxr respiratory treatment on Zosyn and Tobramycin inhalation trial of Licocain has been helpful low dose Methadone seems to help titrate vent setting f/u pulse oximeter dvt prophylaxis. wbc is normal today Subjective ROS Limited/Unobtainable: No Constitutional: Reports: no symptoms HEENT: Repors: no symptoms Respiratory: Reports: no symptoms Allergies: Coded Allergies: No Known Allergies (Unverified , 06/17/16) Objective Last 24 Hour Vital Signs Date Time Temp Pulse Resp B/P (MAP) Pulse Ox O2 Delivery O2 Flow Rate FiO2 05/11/18 10:31 82 20 100 Mechanical Ventilator 30 05/11/18 09:56 85 22 100 Mechanical Ventilator 30 05/11/18 08:41 81 21 30 05/11/18 08:00 30 05/11/18 08:00 Mechanical Ventilator 05/11/18 08:00 98.0 85 20 134/79 (97) 100 05/11/18 06:42 92 22 30 05/11/18 05:42 110 118/80 05/11/18 04:56 104 21 30 05/11/18 04:00 30 05/11/18 04:00 Mechanical Ventilator 05/11/18 04:00 108 05/11/18 04:00 97.6 108 22 125/65 (85) 100 05/11/18 03:02 98 17 100 Mechanical Ventilator 30 05/11/18 02:41 97 22 100 Mechanical Ventilator 30 05/11/18 02:33 96 18 30 05/11/18 01:27 91 20 30 05/11/18 00:00 97.8 105 22 95/60 (72) 100 05/11/18 00:00 101 05/11/18 00:00 Mechanical Ventilator 05/10/18 22:59 88 20 30 05/10/18 22:57 95 20 100 Mechanical Ventilator 30 05/10/18 22:33 87 115/70 05/10/18 22:24 89 18 99 Mechanical Ventilator 30 05/10/18 21:01 86 18 30 05/10/18 20:00 97 05/10/18 20:00 30 05/10/18 20:00 97.9 97 22 102/73 (83) 100 05/10/18 20:00 Mechanical Ventilator 05/10/18 19:02 84 18 30 05/10/18 17:12 89 23 30 05/10/18 16:00 97.5 102 22 119/78 (92) 100 05/10/18 16:00 30 05/10/18 16:00 Mechanical Ventilator 05/10/18 16:00 93 05/10/18 15:13 99 22 100 Mechanical Ventilator 30 05/10/18 14:48 104 25 30 05/10/18 14:01 98 122/72 05/10/18 13:05 93 20 30 05/10/18 12:23 102 16 99 Mechanical Ventilator 30 05/10/18 12:00 90 05/10/18 12:00 30 05/10/18 12:00 97.5 81 18 109/74 (86) 100 05/10/18 12:00 Mechanical Ventilator Intake and Output 05/10/18 05/11/18 18:59 06:59 Intake Total 806.25 ml 432.5 ml Output Total 500 ml 600 ml Balance 306.25 ml -167.5 ml Intake Oral 600 ml 240 ml IV Total 206.25 ml 192.5 ml Output Urine Total 500 ml 600 ml General Appearance: WD/WN HEENT: normocephalic, atraumatic Respiratory/Chest: chest wall non-tender, lungs clear Cardiovascular: normal peripheral pulses, normal rate Abdomen: normal bowel sounds, soft, non tender Extremities: no cyanosis Skin: no rash Neurologic/Psychiatric: no motor/sensory deficits, abnormal gait, normal mood/ affect Laboratory Tests 05/11/18 03:32: White Blood Count 10.7, Red Blood Count 3.25L, Hemoglobin 9.8L, Hematocrit 27.6L , Mean Corpuscular Volume 85, Mean Corpuscular Hemoglobin 30.3, Mean Corpuscular Hemoglobin Concent 35.6, Red Cell Distribution Width 12.0, Platelet Count 313, Mean Platelet Volume 6.8, Neutrophils (%) (Auto) 64.4, Lymphocytes (% ) (Auto) 19.8L, Monocytes (%) (Auto) 11.9H, Eosinophils (%) (Auto) 2.9, Basophils (%) (Auto) 1.1, Sodium Level 132L, Potassium Level 4.0, Chloride Level 101, Carbon Dioxide Level 22, Anion Gap 9, Blood Urea Nitrogen 9, Creatinine 1.2, Estimat Glomerular Filtration Rate > 60, Glucose Level 102, Calcium Level 8.4L Current Medications Medications (Trade) Dose Ordered Sig/Shraddha Route PRN Reason Start Time Stop Time Status Last Admin Dose Admin Acetaminophen (Tylenol) 650 mg Q4H PRN ORAL FEVER 04/29/18 17:09 05/29/18 17:08 Chlorpromazine (Thorazine) 25 mg Q6H PRN ORAL HICCUPS 05/05/18 14:45 06/04/18 14:44 05/11/18 10:43 Dextrose (Dextrose 50%) 25 ml Q30M PRN IV Hypoglycemia 04/29/18 17:15 05/29/18 17:12 Dextrose (Dextrose 50%) 50 ml Q30M PRN IV hypoglycemia 04/29/18 17:15 05/29/18 17:14 Diltiazem HCl (Cardizem) 60 mg EVERY 8 HOURS ORAL 05/08/18 22:00 06/07/18 21:59 05/11/18 05:42 Heparin Sodium (Porcine) (Heparin 5000 units/ml) 5,000 units EVERY 12 HOURS SUBQ 04/29/18 21:00 05/29/18 20:59 05/11/18 08:05 Lidocaine (Xylocaine 1% MPF 5ml) 10 ml Q4H PRN HHN persistent cough 04/30/18 10:15 05/30/18 10:14 05/05/18 14:41 Magnesium Hydroxide (Mom) 30 ml Q8H PRN ORAL Constipation 05/07/18 21:15 06/06/18 21:14 05/11/18 05:42 Methadone HCl (Methadone HCl) 5 mg EVERY 12 HOURS ORAL 05/06/18 21:00 05/13/18 20:59 05/11/18 08:03 Morphine Sulfate (Morphine Sulfate) 4 mg Q4H PRN IVP For Pain 05/07/18 10:45 05/14/18 10:44 05/11/18 10:44 Ondansetron HCl (Zofran) 4 mg Q6H PRN IVP Nausea & Vomiting 04/29/18 17:15 05/29/18 17:14 Piperacillin Sod/ Tazobactam Sod 3.375 gm/Dextrose 110 ml @ 27.5 mls/hr Q8H IVPB 05/02/18 12:00 05/11/18 23:59 05/11/18 03:43 Polyethylene Glycol (Miralax) 17 gm DAILYPRN PRN ORAL Constipation 04/29/18 17:15 05/29/18 17:14 Tobramycin Sulfate (Nebcin) 300 mg Q12HR@10,22 INH 05/07/18 22:00 05/14/18 21:59 05/11/18 09:55 Demetrius Andrade MD May 11, 2018 10:52
[2018-05-11 12:00] VITALS: BP 100/64
--- NOTE | 2018-05-11 13:52 | General Progress Note ---
Assessment/Plan Problem List: (1) Acute respiratory failure ICD Codes: J96.00 - Acute respiratory failure, unspecified whether with hypoxia or hypercapnia SNOMED: 47035021 (2) UTI (urinary tract infection) due to Enterococcus ICD Codes: N39.0 - Urinary tract infection, site not specified; B95.2 - Enterococcus as the cause of diseases classified elsewhere SNOMED: 136900469731735 (3) COPD exacerbation ICD Codes: J44.1 - Chronic obstructive pulmonary disease with (acute) exacerbation SNOMED: 479454712, 827879115 (4) Sepsis ICD Codes: A41.9 - Sepsis, unspecified organism SNOMED: 99293058 (5) Acute renal failure (ARF) ICD Codes: N17.9 - Acute kidney failure, unspecified SNOMED: 46969932 (6) Fever ICD Codes: R50.9 - Fever, unspecified SNOMED: 572435455 Status: stable, progressing Assessment/Plan vent abx gi f/u cbc bmp am dc if clear Subjective Constitutional: Reports: weakness Allergies: Coded Allergies: No Known Allergies (Unverified , 06/17/16) All Systems: reviewed and negative except above Subjective trach vent sleepy Objective Last 24 Hour Vital Signs Date Time Temp Pulse Resp B/P (MAP) Pulse Ox O2 Delivery O2 Flow Rate FiO2 05/11/18 12:46 94 23 30 05/11/18 12:00 30 05/11/18 12:00 Mechanical Ventilator 05/11/18 12:00 96.8 80 20 100/64 (76) 100 05/11/18 11:04 86 22 30 05/11/18 10:31 82 20 100 Mechanical Ventilator 30 05/11/18 09:56 85 22 100 Mechanical Ventilator 30 05/11/18 08:41 81 21 30 05/11/18 08:00 30 05/11/18 08:00 Mechanical Ventilator 05/11/18 08:00 98.0 85 20 134/79 (97) 100 05/11/18 08:00 89 05/11/18 06:42 92 22 30 05/11/18 05:42 110 118/80 05/11/18 04:56 104 21 30 05/11/18 04:00 30 05/11/18 04:00 Mechanical Ventilator 05/11/18 04:00 108 05/11/18 04:00 97.6 108 22 125/65 (85) 100 05/11/18 03:02 98 17 100 Mechanical Ventilator 30 05/11/18 02:41 97 22 100 Mechanical Ventilator 30 05/11/18 02:33 96 18 30 05/11/18 01:27 91 20 30 05/11/18 00:00 97.8 105 22 95/60 (72) 100 05/11/18 00:00 101 05/11/18 00:00 Mechanical Ventilator 05/10/18 22:59 88 20 30 05/10/18 22:57 95 20 100 Mechanical Ventilator 30 05/10/18 22:33 87 115/70 05/10/18 22:24 89 18 99 Mechanical Ventilator 30 05/10/18 21:01 86 18 30 05/10/18 20:00 97 05/10/18 20:00 30 05/10/18 20:00 97.9 97 22 102/73 (83) 100 05/10/18 20:00 Mechanical Ventilator 05/10/18 19:02 84 18 30 05/10/18 17:12 89 23 30 05/10/18 16:00 97.5 102 22 119/78 (92) 100 05/10/18 16:00 30 05/10/18 16:00 Mechanical Ventilator 05/10/18 16:00 93 05/10/18 15:13 99 22 100 Mechanical Ventilator 30 05/10/18 14:48 104 25 30 05/10/18 14:01 98 122/72 Intake and Output 05/10/18 05/11/18 18:59 06:59 Intake Total 806.25 ml 432.5 ml Output Total 500 ml 600 ml Balance 306.25 ml -167.5 ml Intake Oral 600 ml 240 ml IV Total 206.25 ml 192.5 ml Output Urine Total 500 ml 600 ml Laboratory Tests 05/11/18 03:32: White Blood Count 10.7, Red Blood Count 3.25L, Hemoglobin 9.8L, Hematocrit 27.6L , Mean Corpuscular Volume 85, Mean Corpuscular Hemoglobin 30.3, Mean Corpuscular Hemoglobin Concent 35.6, Red Cell Distribution Width 12.0, Platelet Count 313, Mean Platelet Volume 6.8, Neutrophils (%) (Auto) 64.4, Lymphocytes (% ) (Auto) 19.8L, Monocytes (%) (Auto) 11.9H, Eosinophils (%) (Auto) 2.9, Basophils (%) (Auto) 1.1, Sodium Level 132L, Potassium Level 4.0, Chloride Level 101, Carbon Dioxide Level 22, Anion Gap 9, Blood Urea Nitrogen 9, Creatinine 1.2, Estimat Glomerular Filtration Rate > 60, Glucose Level 102, Calcium Level 8.4L Height (Feet): 6 Height (Inches): 5.00 Weight (Pounds): 169 General Appearance: lethargic EENT: normal ENT inspection Neck: non-tender Cardiovascular: normal peripheral pulses, normal rate, regular rhythm Respiratory/Chest: chest wall non-tender, lungs clear, normal breath sounds Abdomen: normal bowel sounds, non tender, soft Extremities: normal inspection Edema: no edema noted Arm (L), no edema noted Arm (R), no edema noted Leg (L), no edema noted Leg (R), no edema noted Pedal (L), no edema noted Pedal (R), no edema noted Generalized Neurologic: motor weakness Skin: normal pigmentation, warm/dry Elan Petersen DO May 11, 2018 13:52
--- NOTE | 2018-05-11 14:08 | Diagnostic Imaging Report ---
Indication: Dyspnea Comparison: 05/04/2018 A single view chest radiograph was obtained. Findings: There is a hazy opacity over the right lung in the upper field finding that is seen on prior studies. No infiltrate identified. No significant change is appreciated. The lungs are hyperexpanded. Tracheostomy noted. Heart size is normal. Bones are osteopenic. IMPRESSION: Hazy right upper lobe opacity. Radiographically no change. Underlying infiltrate may be present. COPD
[2018-05-11 16:00] VITALS: BP 116/77
[2018-05-11] MEDS ORDERED: Albuterol/Ipratropium 3ml neb HHN PRN (16:45)
[2018-05-11] MEDS ORDERED: NS 275ml ONE (18:06)
[2018-05-11] MEDS ORDERED: Acetylcysteine 20% Soln 4ml HHN SCH (19:00)
--- NOTE | 2018-05-12 13:44 | Discharge Summary ---
Discharge Summary Discharge Summary _ DATE OF ADMISSION: 04/29/2018 DATE OF DISCHARGE: 05/11/2018 REASON FOR ADMISSION: 67 years old male with ventilator dependent respiratory failure, tracheostomy status, COPD, hypertension, colon cancer, status post hemicolectomy, was sent to emergency room for evaluation due to shortness of breath and fever. Patient was complaining of tightness in his throat and difficulty with breathing. He denied chest pain or difficulty swallowing . Chest x-ray revealed no acute cardiopulmonary pathology. Upon evaluation patient was febrile, tachycardic, and tachypneic. Laboratory workup revealed leukocytosis WBC 16.7. Urinalysis initially was negative. D-dimer was 0.51. Lactic acid 1.5. Stable electrolytes and renal parameters Albumin 2.9 Patient was admitted to direct observational unit for further management with diagnoses of sepsis, acute and chronic respiratory failure ,COPD exacerbation , hypertension. CONSULTANTS: binding machine operator Dr. Pandya pulmonary Dr. Andrade ID specialist Dr. Trujillo [facility]SE: Patient admitted to [facility]. Ventilator support and tracheostomy care provided. Pulmonary toilet provided around the clock and as needed. Patient started on Lidocaine via [facility]. Patient started on steroids with gradual tapering and empiric antibiotics. ID specialist closely followed. DVT prophylaxis provided. Blood culture were negative. Urine culture revealed Proteus mirabilis and sputum culture grew Pseudomonas aeruginosa and Streptococcus group G. Antibiotic provided as per infectious disease specialist recommendations. Patient completed antibiotics while in the hospital. Patient was followed up with the chest x-ray. Patient initially was on gentle IV fluid for few days. Venous duplex bilateral lower extremity was negative for evidence of acute DVT. DVT prophylaxis provided. Drill Press Operator Helper closely followed. Per binding machine operator dyspnea was due to acute COPD exacerbation . Echocardiogram previously showed preserved ejection fraction. Sinus tachycardia resolved. Patient was on Cardizem for blood rpessure management, dose optimized to keep blood pressure under control. Pain management was addressed. Supportive care provided. Bowel regimen instituted. District Or District Office Director recommendations implemented in plan of care. Patient stabilized and was ready for transfer back to subacute facility for continuation of care. FINAL DIAGNOSES: Acute on chronic ventilator dependent respiratory failure Sepsis Pseudomonas pneumonia UTI with Proteus mirabilis COPD exacerbation Hypertension History of colon cancer, status post hemicolectomy Protein calorie malnutrition History of DVT DISCHARGE MEDICATIONS: List of medication was sent to senior care facility DISCHARGE INSTRUCTIONS: Patient was discharged to the senior care facility. Follow up with medical doctor at the facility. I have been assigned to dictate discharge summary for this account. I was not involved in the patient's management. Katia Sequeira NP May 12, 2018 13:44
== END 2018-05-11 18:30 | DRG 870 ==
LOC: EDBD 14:10 → EMR 14:31 → 2W 15:55 → EDBEDREQ 16:02
PROC: 5A1955Z Respiratory Ventilation, Greater than 96 Consecutive Hours (ICD-10-PCS; principal; 2018-04-29)
DX: A41.9 Sepsis, unspecified organism (principal); J96.20 Acute and chronic respiratory failure, unspecified whether with hypoxia or hypercapnia; J15.1 Pneumonia due to Pseudomonas; J44.1 Chronic obstructive pulmonary disease with (acute) exacerbation; J44.0 Chronic obstructive pulmonary disease with (acute) lower respiratory infection; N39.0 Urinary tract infection, site not specified; E46 Unspecified protein-calorie malnutrition; Z99.11 Dependence on respirator [ventilator] status; N17.9 Acute kidney failure, unspecified; R65.20 Severe sepsis without septic shock; Z93.0 Tracheostomy status; Z93.1 Gastrostomy status; R13.10 Dysphagia, unspecified; B95.2 Enterococcus as the cause of diseases classified elsewhere; Z68.20 Body mass index [BMI] 20.0-20.9, adult; I10 Essential (primary) hypertension; Z86.718 Personal history of other venous thrombosis and embolism; E11.9 Type 2 diabetes mellitus without complications; Z85.038 Personal history of other malignant neoplasm of large intestine; R91.8 Other nonspecific abnormal finding of lung field
CPT/HCPCS: 36415; 36600; 71045; 80048; 80053; 80069; 80202; 81003; 82248; 82803; 83605; 83735; 84100; 84484; 85007; 85025; 85379; 87040; 87070; 87086; 87181; 87205; 93005; 93970; 94002; 94003; 94640; 94664; 96365; 96368; 97802; 99285; J7620; J8499